=== PATIENT | female | born 1950 | race Caucasian/White ===

== ENCOUNTER 2016-04-28 14:43 | Outpatient (RCR) | payer MEDICARE, MEDICAID ==
[~2016-04-28 14:43] MED LIST: ALBU2.5V4 IH; ALBU2.5V4 NEB; ALPR0.5T7 PO; ASCO-262 PO; ASPI-983 PO; AZTH250C PO; Alprazolam PO; Aspirin PO; BUDE10.2 PO; CELE200C PO; CETI10TA17 PO; CLOP75TA PO; CLOP75TA28 PO; CLOP75TA69 PO; CYCL5TAB PO; Citalopram Hydrobromide PO; DCS100C PO; DILT120C54 PO; DLT240CCR PO; DOCU-143 PO; DOXE25CA46 PO; DOXY100T2 PO; FLUC100T PO; FLUO20CA42 PO; FLUO40CA PO; FLUO40CA12 PO; FURO40TA4 PO; GABA-488 PO; HYDR-2890 PO; HYDR-3731 PO; HYDR-3820 PO; HYDR200T46 PO; IPR14IN IH; IPRA3AMP INH; LORA-794 PO; LORA10TA7 PO; METR500T21 PO; MIRT15TA6 PO; MIRT30TA6 PO; MONT10TA24 PO; MULT1CAP27 PO; NAPR-591 PO; NAPR500T PO; NAPR500T3 PO; NF-ESOM40C PO; NYST1000 PO; OMEP10SU PO; OMEP20CA12 PO; ONDN4T PO; PEDI1TAB30 PO; PRAV10TA PO; PRD10T PO; Prednisone PO; RANI-515 PO; RANI150T11 PO; RANI150T90 PO; SERT50TA9 PO; SULF1TAB35 PO; TIOT4MIS2 PO; TR1C15 TOP; VARE1TAB17 PO; VENL75TA74 PO; VERA120T84 PO; Verapamil Hcl PO; [UNRECOGNIZED DRUG - CODE] PO
--- OUTSIDE RECORDS SUMMARY | 2016-04-28 14:46 | XMS REPORT | Continuity of Care Document ---
Author Author [facility] Organization [facility] Address Unknown Phone Unavailable Care Team Providers Care Asset Card Clerk Name Role Phone PCP Unavailable Source Comments Some departments are not documenting in the electronic medical record. If you do not see the information that you expected, contact Release of Information in the Health Information Management department at [phone] for further assistance in locating additional records.[facility] Active Allergies and Adverse Reactions No Known Allergies Current Medications Prescription Sig. Disp. Refills Start End Date Status Date varenicline (CHANTIX) 1 Take 0.5 mg by mouth Active mg tablet twice daily. warfarin (COUMADIN) 3 mg Take 3 mg by mouth daily. Active tablet HYDROcodone-acetaminophen Take 1 Tab by mouth every Active (+) (VICODIN) 10-325 mg 6 hours as needed. tablet ibuprofen (MOTRIN) 800 mg Take 800 mg by mouth Active tablet every 6 hours as needed. PV W-O MANUEL/FERROUS Take 1 Tab by mouth Active FUMARATE/FA (M-VIT PO) daily. clopiDOGrel (PLAVIX) 75 Take 75 mg by mouth Active mg tablet daily. ASCORBATE CALCIUM Take 500 mg by mouth Active (VITAMIN C PO) daily. Active Problems Problem Noted Date Tobacco abuse, in remission 07/07/2013 PAD (peripheral artery disease) ([facility]) 07/07/2013 Dry gangrene (HCC) 07/07/2013 Social History Tobacco Use Types Packs/Day Years Used Date Former Smoker Quit: 05/28/2013 Last Filed Vital Signs Vital Sign Reading Time Taken Blood Pressure 146/59 07/04/2013 2:19 PM [employer] Pulse 73 07/04/2013 2:19 PM [employer] Temperature 35.9 C (96.6 F) 07/04/2013 2:17 PM [employer] Respiratory Rate 14 07/04/2013 2:17 PM [employer] Height 1.6 m (5' 3") 07/04/2013 2:17 PM [employer] Weight 58.968 kg (130 lb) 07/04/2013 2:17 PM [employer] Body Mass Index 23.03 07/04/2013 2:17 PM [employer] Oxygen Saturation - - Plan of Care Health Maintenance Due Date Last Done Comments Physical (Comprehensive) 1956 Exam Pertussis Vaccine 1960 Tetanus Vaccine 1966 Breast Cancer Screening 1989 Colorectal Cancer 1999 Screening Shingles Vaccine 2009 Osteoporosis Screening 2014 Prevnar/Pneumovax (#1) 2014 Influenza Vaccine 03/13/2016 Results from Last 3 Months Not on file
[2016-04-28 15:26] LABS: BASOPHILS # (AUTO) 0.1 10^3/uL (0.0-0.1); BASOPHILS % (AUTO) 1 % (0-10); EOSINOPHILS # (AUTO) 0.5 10^3/uL (0.0-0.3); EOSINOPHILS % (AUTO) 3 % (0-10); LYMPHOCYTES # (AUTO) 3.1 X 10^3 (1.0-4.0); LYMPHOCYTES % (AUTO) 18 % (12-44); MEAN CORPUSCULAR HGB CONC 31 G/DL (32-36); MEAN CORPUSCULAR VOLUME 79 FL (80-99); MEAN PLATELET VOLUME 9.2 FL (7.4-10.4); MONOCYTES # (AUTO) 1.7 X 10^3 (0.0-1.0); MONOCYTES % (AUTO) 10 % (0-12); NEUTROPHILS # (AUTO) 11.6 X 10^3 (1.8-7.8); NEUTROPHILS % (AUTO) 69 % (42-75); PLATELET COUNT 714 10^3/uL (130-400); RED BLOOD COUNT 4.49 10^6/uL (4.35-5.85); RED CELL DISTRIBUTION WIDTH 28.8 % (10.0-14.5); RETICULOCYTE % 1.89 % (0.50-2.40); WHITE BLOOD COUNT 16.9 10^3/uL (4.3-11.0)
[2016-04-28 15:28] LABS: MEAN CORPUSCULAR HEMOGLOBIN 24 PG (25-34)
[2016-04-28 16:56] LABS: ALANINE AMINOTRANSFERASE 18 U/L (0-55); ALBUMIN 2.7 G/DL (3.2-4.5); ANION GAP 6 MMOL/L (5-14); ASPARTATE AMINO TRANSFERASE 33 U/L (5-34); BILIRUBIN,TOTAL 0.3 MG/DL (0.1-1.0); BLOOD UREA NITROGEN 5 MG/DL (7-18); BUN/CREATININE RATIO 7; CALCIUM 8.1 MG/DL (8.5-10.1); CARBON DIOXIDE 29 MMOL/L (21-32); CHLORIDE 107 MMOL/L (98-107); CREATININE SERUM 0.68 MG/DL (0.60-1.30); GFR ESTIMATED > 60; GLUCOSE 86 MG/DL (70-105); POTASSIUM 3.2 MMOL/L (3.6-5.0); SODIUM 142 MMOL/L (135-145); TOTAL PROTEIN 6.2 G/DL (6.4-8.2)
[2016-04-29 11:47] LABS: %SAT TOTAL IRON BINDING CAPIC 22 % (15-50); TIBC 137 ug/dL (280-380)
[2016-04-29 15:57] LABS: UIBC 107 ug/dL (55-450)
[2016-04-30 07:54] LABS: FERRITIN 759 ng/mL (15-150)
[2016-05-14] MEDS ORDERED: METR500T21 PO (10:19)
[2016-05-14] MEDS ORDERED: VANC125C11 PO (10:19)
[2016-06-11] MEDS ORDERED: ETAN50DI2 SQ (13:48)
[2016-06-11] MEDS ORDERED: L.AC1CAP6 PO (15:47)
[2016-06-16] MEDS ORDERED: LEVO750T9 PO (12:29)
[2016-06-16] MEDS ORDERED: Vancomycin Hcl PO (13:28)
[2016-07-22] MEDS ORDERED: ALPR0.5T7 PO (15:38)
[2016-07-22] MEDS ORDERED: CHOL10003 PO (15:38)
[2016-07-22] MEDS ORDERED: ETAN50DI2 INJ (15:38)
[2016-07-22] MEDS ORDERED: OXYC-464 PO (15:38)
[2016-07-25] MEDS ORDERED: LEVO750T39 PO (09:39)
[2016-07-25] MEDS ORDERED: METR500T21 PO (09:39)
[2016-08-21] MEDS ORDERED: VANC250C4 PO (08:01)
== END 2016-07-27 | disposition home or self-care (01) ==
LOC: ONC 14:43
PROVIDERS: ATTEND Internal Medicine Hematology & Oncology
DX: D50.8 Other iron deficiency anemias (principal); D63.8 Anemia in other chronic diseases classified elsewhere; I80.209 Phlebitis and thrombophlebitis of unspecified deep vessels of unspecified lower extremity; I47.1 Supraventricular tachycardia; I65.23 Occlusion and stenosis of bilateral carotid arteries; J44.9 Chronic obstructive pulmonary disease, unspecified; F41.9 Anxiety disorder, unspecified; E11.59 Type 2 diabetes mellitus with other circulatory complications; I70.213 Atherosclerosis of native arteries of extremities with intermittent claudication, bilateral legs; F17.210 Nicotine dependence, cigarettes, uncomplicated; Z79.899 Other long term (current) drug therapy
CPT/HCPCS: 36415; 80053; 82728; 83540; 85025; 85045; 99213

== ENCOUNTER 2016-07-22 10:37 | Inpatient (IN) | payer MEDICARE, MEDICAID ==
[~2016-07-22] VITALS: Ht 162.6 cm; Wt 74.5 kg
[~2016-07-22 10:37] MED LIST changes: +ETAN50DI2 SQ; +L.AC1CAP6 PO; +LEVO750T9 PO; +VANC125C11 PO; +Vancomycin Hcl PO
--- NOTE | 2016-07-22 11:28 | ED GI ---
General Chief Complaint: Abdominal/GI Problems Stated Complaint: DIARRHEA Source of Information: Patient, Family Exam Limitations: No Limitations (PALOMO SALAZAR APRN) History of Present Illness Time Seen By Provider: 11:27 Initial Comments To ER with persistent diarrhea that recurred last night. She is finished oral vancomycin 7 days ago for Clostridium difficile infection followed aggressive antibiotic therapy for sepsis on June 11 admission. She denies abdominal pain fevers or chills. Denies nausea or vomiting. Does have a cough. Timing/Duration: 1-2 Days Severity/Quality: Moderate Associated Symptoms: Denies Symptoms Nausea/Vomiting (PALOMO SALAZAR APRN) Initial Comments Also is complaining of increasing right knee pain. Denies any new injury. She is requiring oxygen now which is not always typical during the day. She does wear oxygen at night. Daughter is concerned because cough sounds wet and course. (DANA HUMPHREY MD) Allergies and Home Medications Allergies Coded Allergies: ceftriaxone (Verified Allergy, Unknown, 06/11/16) Home Medications 60 ML SOLN 7Days 2.5 ML PO Q6H YOU HAVE ENOUGH VANCO TO LAST UNTIL 06/23, IF WANTS YOU TO CONTINUE MEDICATION FOR FULL 2 WEEKS AFTER LEVAQUIN, YOU WILL NEED NEW RX AT FOLLOW UP VISIT. Prescribed by: NIESHA GALLO on 06/16/16 1328 Albuterol Sulfate 2.5 Mg/3 Ml Vial.neb 2.5 MG NEB QID PRN PRN SHORTNESS OF BREATH (Reported) Ascorbate Calcium 500 Mg Tablet 500 MG PO BID (Reported) Aspirin 81 Mg Tablet. 81 MG PO DAILY (Reported) Budesonide/Formoterol Fumarate 10.2 Gm Hfa.aer.ad 2 PUFF PO BID (Reported) Cetirizine HCl 10 Mg Tablet 10 MG PO DAILY (Reported) Doxepin HCl 25 Mg Capsule 25 MG PO HS (Reported) Folic Acid/Multivit-Min/Lutein 1 Each Tab.chew 2 TAB PO DAILY (Reported) Gabapentin 300 Mg Capsule 600 MG PO TID (Reported) TAkES 2 (300 MG) CAPSULES Hydrocodone/Acetaminophen 1 Each Tablet 1 TAB PO BID PRN PRN PAIN (Reported) L.acidoph & Paracasei,B.lactis 1 Each Capsule 1 CAP PO BID (Reported) Levofloxacin 750 Mg Tablet 10Days 750 MG PO DAILY Prescribed by: WES LEHMAN on 06/16/16 1229 Montelukast Sodium 10 Mg Tablet 10 MG PO DAILY (Reported) Omeprazole 20 Mg Capsule.dr 20 MG PO DAILY (Reported) Pravastatin Sodium 10 Mg Tablet 10 MG PO HS (Reported) Ranitidine HCl 150 Mg Tablet 150 MG PO BID (Reported) Sertraline HCl 50 Mg Tablet 50 MG PO DAILY (Reported) Tiotropium Shunk 4 Gm Mist.inhal 1 PUFF PO DAILY (Reported) Verapamil HCl 120 Mg Tablet.er 120 MG PO DAILY (Reported) Review of Systems Constitutional: see HPINo chills, No fever EENTM: No Symptoms Reported Respiratory: No Symptoms Reported Cardiovascular: No Symptoms Reported Gastrointestinal: See HPIDenies Abdominal Pain, Denies Constipated, DiarrheaDenies Nausea, Denies Vomiting Genitourinary: No Symptoms Reported Musculoskeletal: no symptoms reported Skin: no symptoms reported Psychiatric/Neurological: No Symptoms Reported Endocrine: No Symptoms Reported (PALOMO SALAZAR APRN) All Other Systems Reviewed Negative Unless Noted: Yes (DANA HUMPHREY MD) Past Vrzwtfe-Jwoioz-Hmmbrx Hx Patient Social History Type Used: Cigarettes Former Smoker/When Quit: Feb 16, 2014 2nd Hand Smoke Exposure: No Recent [facility]: Yes [facility]DX C DIFF)) (PALOMO SALAZAR APRN) Immunizations Up To Date Tetanus Booster (TDap): More than 5yrs PED Vaccines UTD: No Date of Pneumonia Vaccine: Aug 05, 2013 Date of Influenza Vaccine: Apr 12, 2016 (PALOMO SALAZAR APRN) Seasonal Allergies Seasonal Allergies: No (PALOMO SALAZAR APRN) Surgeries HX Surgeries: Yes (TOTAL HIP, STENTS IN LEGS) Surgeries: Orthopedic (PALOMO SALAZAR APRN) Respiratory Hx Respiratory Disorders: Yes (COPD, emphysema) Respiratory Disorders: COPD, Emphysema (PALOMO SALAZAR APRN) Cardiovascular Hx Cardiac Disorders: No (PALOMO SALAZAR APRN) Neurological Hx Neurological Disorders: Yes Neurological Disorders: Stroke (PALOMO SALAZAR APRN) Reproductive System Hx Reproductive Disorders: No Sexually Transmitted Disease: No HIV/AIDS: No Female Reproductive Disorders: Denies (PALOMO SALAZAR APRN) Genitourinary Hx Genitourinary Disorders: No (PALOMO SALAZAR APRN) Gastrointestinal Hx Gastrointestinal Disorders: Yes Gastrointestinal Disorders: Pancreatitis, C-Diff (PALOMO SALAZAR APRN) Musculoskeletal Hx Musculoskeletal Disorders: Yes (PARTIAL LEFT FOOT AMPUTATION. ) Musculoskeletal Disorders: Rheumatoid Arthritis (PALOMO SALAZAR APRN) Endocrine Hx Endocrine Disorders: No (PALOMO SALAZAR APRN) HEENT HX ENT Disorders: No Loss of Vision: Denies Hearing Impairment: Denies (PALOMO SAALZAR APRN) Cancer Hx Cancer: No (PALOMO SALAZAR APRN) Psychosocial Hx Psychiatric Problems: Yes Behavioral Health Disorders: Anxiety, Depression (PALOMO SALAZAR APRN) Integumentary HX Skin/Integumentary Disorder: No (PALOMO SALAZAR APRN) Blood Transfusions Hx Blood Disorders: No Adverse Reaction to a Blood Tr: No (PALOMO SALAZAR APRN) Reviewed Nursing Assessment Reviewed/Agree w Nursing PMH: Yes (DANA HUMPHREY MD) Family Medical History Significant Family History: Heart Disease Family Medial History: Cancer 09 SISTER Family history: Arthritis 09 BROTHER 09 SISTER Family history: Cardiovascular disease 09 SISTER Family history: Thyroid disorder 09 SISTER Malignant neoplasm of lung 09 SISTER (PALOMO SALAZAR APRN) Family Medial History: Cancer 09 SISTER Family history: Arthritis 09 BROTHER 09 SISTER Family history: Cardiovascular disease 09 SISTER Family history: Thyroid disorder 09 SISTER Malignant neoplasm of lung 09 SISTER (DANA HUMPHREY MD) Physical Exam Vital Signs VS - Last 72 Hours, by Label 07/22/16 12:13 Temp 97.6 Pulse 86 Resp 18 B/P 139/75 Pulse Ox 95 O2 Delivery Nasal Cannula (DANA HUMPHREY MD) Vital Signs Capillary Refill : (PALOMO SALAZAR APRN) General Appearance: WD/WN no apparent distress HEENT: PERRL/EOMI normal ENT inspection Respiratory: normal breath sounds no respiratory distress no accessory muscle use Cardiovascular: regular rate, rhythm no murmur Gastrointestinal: normal bowel sounds soft tenderness (minimal right lower quadrant tenderness) Extremities: normal range of motion non-tender Neurologic/Psychiatric: alert normal mood/affect Skin: normal color warm/dry (PALOMO SALAZAR APRN) HEENT: pharynx normal Neck: full range of motion supple Respiratory: No wheezing, other (course upper respiratory sounds) Extremities: other (right knee with effusion and tenderness to the medial and lateral aspect) Back: normal inspection no CVA tenderness no vertebral tenderness (DANA HUMPHREY MD) Progress/Results/Core Measures Results/Orders Lab Results Laboratory Tests Test 07/22/16 10:57 07/22/16 12:00 07/22/16 12:45 Range/Units Anisocytosis SLIGHT Band Neutrophils 7 % Basophils # (Auto) 0.0 0.0-0.1 10^3/uL Basophils % (Manual) 0 % Basophils (%) (Auto) 0 0-10 % Eosinophils # (Auto) 0.1 0.0-0.3 10^3/uL Eosinophils % (Manual) 1 % Eosinophils (%) (Auto) 1 0-10 % Hematocrit 40 35-52 % Hemoglobin 12.7 11.5-16.0 G/DL Lymphocytes # (Auto) 2.2 1.0-4.0 X 10^3 Lymphocytes % (Manual) 10 % Lymphocytes (%) (Auto) 11 L 12-44 % Mean Corpuscular Hemoglobin 27 25-34 PG Mean Corpuscular Hemoglobin Concent 32 32-36 G/DL Mean Corpuscular Volume 87 80-99 FL Mean Platelet Volume 10.0 7.4-10.4 FL Monocytes # (Auto) 1.4 H 0.0-1.0 X 10^3 Monocytes % (Manual) 5 % Monocytes (%) (Auto) 7 0-12 % Neutrophils # (Auto) 15.4 H 1.8-7.8 X 10^3 Neutrophils % (Manual) 77 % Neutrophils (%) (Auto) 81 H 42-75 % Platelet Count 557 H 130-400 10^3/uL Red Blood Count 4.64 4.35-5.85 10^6/uL Red Cell Distribution Width 16.7 H 10.0-14.5 % White Blood Count 19.1 H 4.3-11.0 10^3/uL Alanine Aminotransferase (ALT/SGPT) 160 H 0-55 U/L Albumin 3.1 L 3.2-4.5 G/DL Alkaline Phosphatase 199 H 40-136 U/L Anion Gap 8 5-14 MMOL/L Aspartate Amino Transf (AST/SGOT) 185 H 5-34 U/L BUN/Creatinine Ratio 23 Blood Urea Nitrogen 17 7-18 MG/DL Calcium Level 9.2 8.5-10.1 MG/DL Carbon Dioxide Level 26 21-32 MMOL/L Chloride Level 104 98-107 MMOL/L Creatinine 0.75 0.60-1.30 MG/DL Estimat Glomerular Filtration Rate > 60 Glucose Level 106 H 70-105 MG/DL Lipase < 4 L 8-78 U/L Potassium Level 4.2 3.6-5.0 MMOL/L Sodium Level 138 135-145 MMOL/L Total Bilirubin 0.8 0.1-1.0 MG/DL Total Protein 8.0 6.4-8.2 G/DL Urine Bacteria TRACE /HPF Urine Bilirubin NEGATIVE NEGATIVE Urine Casts NONE /LPF Urine Clarity CLEAR Urine Color YELLOW Urine Crystals NONE /LPF Urine Culture Indicated NO Urine Glucose (UA) NEGATIVE NEGATIVE Urine Ketones 1+ H NEGATIVE Urine Leukocyte Esterase 1+ H NEGATIVE Urine Mucus SMALL H /LPF Urine Nitrite NEGATIVE NEGATIVE Urine Protein 1+ H NEGATIVE Urine RBC NONE /HPF Urine RBC (Auto) NEGATIVE NEGATIVE Urine Specific [place] 1.020 1.016-1.022 Urine Squamous Epithelial Cells 0-2 /HPF Urine Urobilinogen 1 NORMAL MG/DL Urine WBC RARE /HPF Urine pH 5 5-9 (DANA HUMPHREY MD) My Orders Orders-DANA HUMPHREY MD Cbc With Automated Diff (07/22/16 11:24) Comprehensive Metabolic Panel (07/22/16 11:24) Ua Culture If Indicated (07/22/16 11:24) Manual Differential (07/22/16 10:57) Knee, Right, 3 Views (07/22/16 11:27) Lipase (07/22/16 12:40) Lactic Acid Analyzer (07/22/16 13:24) Blood Culture (07/22/16 13:24) (DANA HUMPHREY MD) Vital Signs/I&O Vital Sign - Last 12Hours 07/22/16 12:13 Temp 97.6 Pulse 86 Resp 18 B/P 139/75 Pulse Ox 95 O2 Delivery Nasal Cannula (DANA HUMPHREY MD) Progress Note : Progress Note Seen and evaluated. IV, labs, UA, LR 1 L bolus, chest x-ray and right knee x- ray ordered. Monitor patient. Patient is required 4 L of O2 to keep O2 sats greater than 92 percent. 1319: Patient's findings are reviewed. This was reviewed with Dr. Brown who is very familiar with the patient's case. Patient does have diarrhea today and respiratory changes requiring oxygen. Findings on x-ray may or may not correlate to pneumonia. Patient does have elevated white count and this may be related to diarrhea. We will treat possible abdominal infection and monitor lungs. Blood cultures and lactic acid will be drawn. Patient did receive 1 L normal saline we will continue IV fluid inpatient. Patient will be admitted due to diarrhea, weakness, hypoxia and dehydration. Levaquin 750 mg IV initiated. We will do inpatient Levaquin and Flagyl. RT mat protocol and patient will also be initiated. I did discuss with the daughter at length about patient's need for long-term care. While the daughter does not want to pursue [place], she is very interested and would pursue rehabilitation within the inpatient setting and in the [place] setting if indicated. Patient also seems to agree. Patient still having some difficulty with speech which appears to be calm and during the times when she needs admissions. (DANA HUMPHREY MD) Diagnostic Imaging Diagonstic Imaging: Xray Plain Films/CT/US/NM/MRI: chest Comments VIA [facility]. [place], [place] NAME: ALIYAH ROLLINS [facility] REC#: [id number] PT STATUS: REG ER : 1950 PHYSICIAN: PALOMO SALAZAR APRN ADMIT DATE: 07/22/16/ER Draft Date of Exam:07/22/16 CHEST PA/LAT (2 VIEW) PA and lateral views of the chest. INDICATION: Cough and shortness of breath. FINDINGS: There is background interstitial thickening that appear increased in the upper lobes particularly on the left side with small left suprahilar infiltrate. The heart size is the slightly enlarged. No effusion or pneumothorax. The mediastinum and beny appear unremarkable. IMPRESSION: Predominantly interstitial infiltrates most prominent in the left suprahilar region, favored to be related to atypical infection. Dictated on workstation # [id number] Dict: 07/22/16 1240 Trans: 07/22/16 1252 [facility] [id number] Interpreted by: ARIANNE CHEW MD Electronically signed by: Diagonstic Imaging: Xray Plain Films/CT/US/NM/MRI: knee Comments NAME: ALIYAH ROLLINS [facility] REC#: [id number] PT STATUS: REG ER : 1950 PHYSICIAN: DANA HUMPHREY MD ADMIT DATE: 07/22/16/ER Signed Date of Exam: 07/22/16 KNEE, RIGHT, 3 VIEWS EXAMINATION: Three views of the right knee. INDICATION: Right knee pain. FINDINGS: There is joint space narrowing of a moderate degree in the medial and lateral compartments. There is also some joint space narrowing of the patellofemoral compartment suggested. There is a small suprapatellar effusion. There are tricompartment osteophytes seen. Subchondral lucency along the medial femoral condyle is noted, probably degenerative related. No fracture or dislocation is seen. No radiopaque foreign body. IMPRESSION: Moderate tricompartment osteoarthritis. Dictated by: Dictated on workstation # [id number] Dict: 07/22/16 1239 Trans: 07/22/16 1321 [id number] Interpreted by: ARIANNE CHEW MD Electronically signed by:ARIANNE CHEW MD 07/22/16 1324 (DANA HUMPHREY MD) Departure Communication Time/Spoke to Admitting Phy: 13:19 (DANA HUMPHREY MD) Impression Impression: Primary Impression: Diarrhea Qualified Code: R19.7 - Diarrhea, unspecified Additional Impressions: Dehydration COPD exacerbation Debility Disposition: 09 ADMITTED INPATIENT Condition: Stable Decision to Admit Reason: Admit from ER (General) Decision to Admit/Date: Jul 22, 2016 Time/Decision to Admit Time: 13:19 (DANA HUMPHREY MD) Departure-Patient Inst. Referrals: [facility] (PCP/Family) Primary Care Physician PALOMO SALAZAR APRN Jul 22, 2016 11:28 DANA HUMPHREY MD Jul 22, 2016 11:46
[2016-07-22 11:30] LABS: BASOPHILS % (AUTO) 0 % (0-10); EOSINOPHILS # (AUTO) 0.1 10^3/uL (0.0-0.3); EOSINOPHILS % (AUTO) 1 % (0-10); LYMPHOCYTES # (AUTO) 2.2 X 10^3 (1.0-4.0); LYMPHOCYTES % (AUTO) 11 % (12-44); MEAN CORPUSCULAR HEMOGLOBIN 27 PG (25-34); MEAN CORPUSCULAR HGB CONC 32 G/DL (32-36); MEAN CORPUSCULAR VOLUME 87 FL (80-99); MONOCYTES # (AUTO) 1.4 X 10^3 (0.0-1.0); MONOCYTES % (AUTO) 7 % (0-12); NEUTROPHILS # (AUTO) 15.4 X 10^3 (1.8-7.8); NEUTROPHILS % (AUTO) 81 % (42-75); PLATELET COUNT 557 10^3/uL (130-400); RED BLOOD COUNT 4.64 10^6/uL (4.35-5.85); RED CELL DISTRIBUTION WIDTH 16.7 % (10.0-14.5); WHITE BLOOD COUNT 19.1 10^3/uL (4.3-11.0)
[2016-07-22] MEDS ORDERED: LACTATED RINGERS 1,000 ML IV SCH (11:30)
[2016-07-22 11:54] LABS: ANISOCYTOSIS SLIGHT; BAND NEUTROPHILS 7 %; BASOPHILS % (MANUAL) 0 %; EOSINOPHILS % (MANUAL) 1 %; LYMPHOCYTES % (MANUAL) 10 %; NEUTROPHILS % (MANUAL) 77 %
[2016-07-22 12:23] LABS: ALANINE AMINOTRANSFERASE 160 U/L (0-55); ALBUMIN 3.1 G/DL (3.2-4.5); ANION GAP 8 MMOL/L (5-14); ASPARTATE AMINO TRANSFERASE 185 U/L (5-34); BILIRUBIN,TOTAL 0.8 MG/DL (0.1-1.0); BLOOD UREA NITROGEN 17 MG/DL (7-18); BUN/CREATININE RATIO 23; CALCIUM 9.2 MG/DL (8.5-10.1); CARBON DIOXIDE 26 MMOL/L (21-32); CHLORIDE 104 MMOL/L (98-107); CREATININE SERUM 0.75 MG/DL (0.60-1.30); GFR ESTIMATED > 60; GLUCOSE 106 MG/DL (70-105); POTASSIUM 4.2 MMOL/L (3.6-5.0); SODIUM 138 MMOL/L (135-145)
--- NOTE | 2016-07-22 12:42 | Diagnostic Imaging Report ---
EXAMINATION: Three views of the right knee. INDICATION: Right knee pain. FINDINGS: There is joint space narrowing of a moderate degree in the medial and lateral compartments. There is also some joint space narrowing of the patellofemoral compartment suggested. There is a small suprapatellar effusion. There are tricompartment osteophytes seen. Subchondral lucency along the medial femoral condyle is noted, probably degenerative related. No fracture or dislocation is seen. No radiopaque foreign body. IMPRESSION: Moderate tricompartment osteoarthritis. Dictated by: Dictated on workstation # [id number]
--- NOTE | 2016-07-22 12:53 | Diagnostic Imaging Report ---
PA and lateral views of the chest. INDICATION: Cough and shortness of breath. FINDINGS: There is background interstitial thickening that appear increased in the upper lobes particularly on the left side with small left suprahilar infiltrate. The heart size is the slightly enlarged. No effusion or pneumothorax. The mediastinum and beny appear unremarkable. IMPRESSION: Predominantly interstitial infiltrates most prominent in the left suprahilar region, favored to be related to atypical infection. Dictated by: Dictated on workstation # [id number]
[2016-07-22 12:57] LABS: BILIRUBIN,URINE NEGATIVE (NEGATIVE); KETONES,URINE 1+ (NEGATIVE); LEUKOCYTE ESTERASE ,URINE 1+ (NEGATIVE); NITRITE,URINE NEGATIVE (NEGATIVE); PH,URINE 5 (5-9); PROTEIN,URINE 1+ (NEGATIVE); UROBILINOGEN,URINE 1 MG/DL (NORMAL)
[2016-07-22 13:06] LABS: SQUAMOUS EPITHELIAL CELL,UR 0-2 /HPF; WBC,URINE RARE /HPF
[2016-07-22] MEDS ORDERED: LEVOFLOXACIN 750 MG/150 ML IV 150 ML IV STA (13:51)
[2016-07-22] MEDS ORDERED: NS IV 1000 ML 1,000 ML IV SCH (15:15)
[2016-07-22] MEDS ORDERED: ONDANSETRON 4 MG/2 ML (SDV) Z0FRAN IV PRN (15:15)
[2016-07-22] MEDS ORDERED: CATHETER FLUSH 10 ML SYR IV PRN (15:15)
[2016-07-22] MEDS: metroNIDAZOLE 500MG/100ML IVPB 100 ML IV SCH ×2 (15:25→22:55)
[2016-07-22] MEDS ORDERED: ETAN50DI2 INJ (15:38)
[2016-07-22] MEDS ORDERED: OXYC-464 PO (15:38)
[2016-07-22] MEDS ORDERED: CHOL10003 PO (15:38)
[2016-07-22] MEDS ORDERED: ALPR0.5T7 PO (15:38)
[2016-07-22 15:39] VITALS: BP 106/61
[2016-07-22 16:35] VITALS: BP 97/57
[2016-07-22] MEDS: NS IV 1000 ML 1,000 ML IV SCH ×2 (17:00→22:54)
[2016-07-22 19:55] VITALS: BP 98/56
[2016-07-22] MEDS: ACETAMINOPHEN 325 MG TABLET/CAPLET (TYLENOL) PO PRN (20:02)
[2016-07-22] MEDS ORDERED: RT-ALBUTEROL SULF 2.5 MG/3 ML PRE-MIX VIAL INH PRN ×2 (20:15→22:00)
[2016-07-22] MEDS: RT-ALBUTEROL SULF 2.5 MG/3 ML PRE-MIX VIAL INH SCH (20:52)
[2016-07-23] VITALS: BP 121/43
[2016-07-23 04:00] VITALS: BP 130/77
[2016-07-23 04:50] LABS: BASOPHILS % (AUTO) 0 % (0-10); EOSINOPHILS # (AUTO) 0.2 10^3/uL (0.0-0.3); EOSINOPHILS % (AUTO) 1 % (0-10); LYMPHOCYTES # (AUTO) 2.4 X 10^3 (1.0-4.0); LYMPHOCYTES % (AUTO) 13 % (12-44); MEAN CORPUSCULAR HEMOGLOBIN 27 PG (25-34); MEAN CORPUSCULAR HGB CONC 32 G/DL (32-36); MEAN CORPUSCULAR VOLUME 86 FL (80-99); MEAN PLATELET VOLUME 9.4 FL (7.4-10.4); MONOCYTES # (AUTO) 1.6 X 10^3 (0.0-1.0); MONOCYTES % (AUTO) 9 % (0-12); NEUTROPHILS # (AUTO) 13.9 X 10^3 (1.8-7.8); NEUTROPHILS % (AUTO) 76 % (42-75); PLATELET COUNT 509 10^3/uL (130-400); RED CELL DISTRIBUTION WIDTH 16.5 % (10.0-14.5); WHITE BLOOD COUNT 18.2 10^3/uL (4.3-11.0)
[2016-07-23 05:12] LABS: ANION GAP 11 MMOL/L (5-14); BLOOD UREA NITROGEN 11 MG/DL (7-18); CARBON DIOXIDE 22 MMOL/L (21-32); CHLORIDE 105 MMOL/L (98-107); CREATININE SERUM 0.64 MG/DL (0.60-1.30); POTASSIUM 3.8 MMOL/L (3.6-5.0); SODIUM 138 MMOL/L (135-145)
[2016-07-23 05:13] LABS: ALANINE AMINOTRANSFERASE 106 U/L (0-55); ALBUMIN 2.9 G/DL (3.2-4.5); ASPARTATE AMINO TRANSFERASE 78 U/L (5-34); BILIRUBIN,TOTAL 0.7 MG/DL (0.1-1.0); BUN/CREATININE RATIO 17; GFR ESTIMATED > 60; GLUCOSE 97 MG/DL (70-105); TOTAL PROTEIN 7.9 G/DL (6.4-8.2)
[2016-07-23] MEDS: metroNIDAZOLE 500MG/100ML IVPB 100 ML IV SCH ×3 (05:35→22:00)
[2016-07-23] MEDS: NS IV 1000 ML 1,000 ML IV SCH (05:35)
[2016-07-23] MEDS: ACETAMINOPHEN 325 MG TABLET/CAPLET (TYLENOL) PO PRN (07:03)
[2016-07-23 08:00] VITALS: BP 139/82
[2016-07-23] MEDS: LEVOFLOXACIN 750 MG/D5W 150 ML PRE-MIX IV SCH (08:48)
--- NOTE | 2016-07-23 09:00 | Diagnostic Imaging Report ---
CLINICAL INDICATION: Patient with history of COPD. EXAM: Chest x-ray PA and lateral views. COMPARISON: Chest x-ray dated 07/22/2016. FINDINGS: There is interval slight improved aeration of both lungs with continued reticular opacities seen in the lingular region, right upper lobe, right lung base regions which may represent residual infiltrates and/or atelectasis or scarring. Stable blunting of left costophrenic angle which may be from scarring. Pulmonary vasculature and cardiac silhouettes within normal limits. Bones show no significant interval abnormality. IMPRESSION: Slight improved aeration of both lungs with continued infiltrates versus atelectasis or scarring involving the right upper lobe, lingula, and right lung base. Dictated by: Dictated on workstation # [id number]
[2016-07-23] MEDS: RT-ALBUTEROL SULF 2.5 MG/3 ML PRE-MIX VIAL INH SCH ×3 (10:40→19:50)
--- NOTE | 2016-07-23 11:35 | History & Physicial (CHS) ---
HPI History of Present Illness: Lona is a 66yo woman well known to the [facility] service who presented to ER with two complaints. One was of a cough and the other that she was having recurrent diarrhea. When I interviewed Lona, she was again having word-finding difficulty that she has had in the past. She did complete her last dose of vanc (after another recurrence of her C diff last month) about a week ago. She has been living at home and has had a few falls. Source: patient Exam Limitations: clinical condition Date seen by provider: Jul 23, 2016 Attending Physician James Mendez MD PCP [facility] Date of Admission Jul 22, 2016 at 2:39 pm Home Medications Home Medications Reviewed patient Home Medication Reconciliation Form Allergies Coded Allergies: ceftriaxone (Verified Allergy, Unknown, 06/11/16) WDD-Jmrsot-Qqhtwa Hx Patient Social History Alcohol Use: Denies Use Recreational Drug Use: No Smoking Status: Former Smoker Former smoker/When Quit: Feb 16, 2014 Type Used: Cigarettes 2nd Hand Smoke Exposure: No Recent Foreign Travel: No Contact w/other who traveled: No Recent Hopitalizations: Yes Recent Infectious Disease Expo: No Physical Abuse Screen: No Sexual Abuse: No Immunizations Up To Date Tetanus Booster (TDap): More than 5yrs Date of Pneumonia Vaccine: Aug 05, 2013 Date of Influenza Vaccine: Apr 12, 2016 Past Medical History Past Medical History 1. ASOD - history of bilateral stents BLE Dr. Sevilla, redo stenting Dr. Engel Lt. SFA 02/23 2. Pancreatitis 2003 3. Hyperlipidemia 4. Chronic obstructive pulmonary disease 5. RA previously evaluated by Dr. Javier 6. History of skin cancer of the face 7. Dry Gangrene Lt. Foot s/p amputation 8. "Spider Bite" with wound Left shoulder with tissue 9 DJD 10. Insomnia 11. Stroke with dysarthria and right sided weakness Past Surgical History 1. Hip Replacement 2003 2. BLE Stents RT. 2003, Lt. 2012 x3 by Di (on coumadin for short period post stent) stopped by Di 3. Otolaryngologic surgery for CA bridge of nose and inner canthus of rt. eye 2009 4. Athrectomy with Lt. SFA stent Toro 02/23 5. Rt. SFA, popliteal and anterior tibial arthrectomy Toro 03/26 6. Left forefoot amputation-Reveal Family Medical History Significant Family History: Heart Disease Family History: Cancer 09 SISTER Family history: Arthritis 09 BROTHER 09 SISTER Family history: Cardiovascular disease 09 SISTER Family history: Thyroid disorder 09 SISTER Malignant neoplasm of lung 09 SISTER Review of Systems ([facility]) Constitutional: no symptoms reported Other unable to obtain due to mental status Physical Exam-([facility]) Physical Exam Vital Signs Capillary Refill : Less Than 3 Seconds General Appearance: WD/WN no apparent distress HEENT: PERRL/EOMI normal ENT inspection pharynx normal Neck: non-tender full range of motion supple normal inspection Respiratory: lungs clear normal breath sounds no respiratory distress no accessory muscle use Cardiovascular: regular rate, rhythm no edema no gallop no JVD no murmur Gastrointestinal: normal bowel sounds non tender soft no organomegaly Extremities: normal range of motion non-tender normal inspection no pedal edema no calf tenderness normal capillary refill 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 concerning that this has recurred yet again. we are apparently not eradicating as we would like to see. if we are going to continue to press ahead, she will need to see ID. will discuss with family once they arrive. ELEVATED TA'S ADM - not sure why her TA's are elevated. has happened in past and they go down with tx of the cdiff. will monitor again and go from there. likely needs an outpatient work up with US/bx, etc. ATYPICAL PNEUMONIA ADM - questionable pneumonia. currently on abx. would like to dc those ADRIANNA as they will potentiate this infection. DEMENTIA ADM - believe the patinent to have dementia based on her repeated confusion when she comes to hospital. will discuss with family. probably needs neuropsych eval. POOR FUNCTIONAL STATUS FREQUENT FALLS ADM - have recommended past 2 hospitalizations that patient go to SNF but she and family have refused repeatedly. will again approach family about her not being safe at home. DVT - SCDs. Diagnosis/Problems: Clinical Quality Measures DVT/VTE Risk/Contraindication: Risk Factor Score Per Nursin RFS Level Per Nursing on Admit: 4+=Very High Copy Copies To 1: JAMES GRAVES APRN, MD Jul 23, 2016 11:35 B/P 139/82 Pulse Ox 97 98 O2 Delivery Nasal Cannula Nasal Cannula O2 Flow Rate 3.00 3.00 Capillary Refill : Less Than 3 Seconds Clinical Quality Measures DVT/VTE Risk/Contraindication: Risk Factor Score Per Nursin RFS Level Per Nursing on Admit: 4+=Very High JAMES MENDEZ MD Jul 23, 2016 11:35 am
[2016-07-23 12:00] VITALS: BP 134/70
--- NOTE | 2016-07-23 14:12 | Physician Query-General Query ---
Physician Query-General Query to Physician: For clarification: Patient has a history of right sided hemiparesis from previous stroke. Is this still present or has it resolved completely? PHYSICIAN RESPONSE: Based on the clinical findings in the record, please respond to the query above on this document as an addendum. Possible, probable, or questionable diagnosis can be coded for INPATIENTS ONLY. Physician Response: Physician Response STILL PRESENT, NOT SEVERE. If you have questions please contact: Realty Specialist:Norah Sanchez CCS,CCDS Ext:[phone] Thank you for your time and cooperation. Clinical Optometric Coordinator/Realty Specialist This is a permanent part of the medical record NORAH SANCHEZ Jul 23, 2016 14:12 JAMES MENDEZ MD Aug 05, 2016 20:56
[2016-07-23 16:20] VITALS: BP 127/72
[2016-07-23 20:00] VITALS: BP 144/73
[2016-07-24] VITALS: BP 131/69
[2016-07-24 04:00] VITALS: BP 127/74
[2016-07-24] MEDS: metroNIDAZOLE 500MG/100ML IVPB 100 ML IV SCH (05:39)
[2016-07-24] MEDS: RT-ALBUTEROL SULF 2.5 MG/3 ML PRE-MIX VIAL INH SCH ×3 (07:33→21:32)
[2016-07-24 08:00] VITALS: BP 145/70
[2016-07-24] MEDS: LEVOFLOXACIN 750 MG/D5W 150 ML PRE-MIX IV SCH (09:27)
[2016-07-24 12:00] VITALS: BP 131/79
[2016-07-24] MEDS: metroNIDAZOLE 500 MG (FLAGYL) TAB PO SCH ×2 (13:55→20:54)
[2016-07-24 16:50] VITALS: BP 139/73
[2016-07-24 20:00] VITALS: BP 158/77
[2016-07-25] VITALS: BP 143/65
[2016-07-25 04:00] VITALS: BP 150/80
[2016-07-25 06:22] LABS: BASOPHILS # (AUTO) 0.1 10^3/uL (0.0-0.1); BASOPHILS % (AUTO) 0 % (0-10); EOSINOPHILS # (AUTO) 0.1 10^3/uL (0.0-0.3); EOSINOPHILS % (AUTO) 0 % (0-10); LYMPHOCYTES # (AUTO) 2.8 X 10^3 (1.0-4.0); LYMPHOCYTES % (AUTO) 20 % (12-44); MEAN CORPUSCULAR HEMOGLOBIN 27 PG (25-34); MEAN CORPUSCULAR HGB CONC 32 G/DL (32-36); MEAN CORPUSCULAR VOLUME 84 FL (80-99); MEAN PLATELET VOLUME 9.6 FL (7.4-10.4); MONOCYTES # (AUTO) 1.5 X 10^3 (0.0-1.0); MONOCYTES % (AUTO) 11 % (0-12); NEUTROPHILS # (AUTO) 9.5 X 10^3 (1.8-7.8); NEUTROPHILS % (AUTO) 68 % (42-75); PLATELET COUNT 532 10^3/uL (130-400); RED BLOOD COUNT 4.11 10^6/uL (4.35-5.85); RED CELL DISTRIBUTION WIDTH 16.1 % (10.0-14.5); WHITE BLOOD COUNT 13.9 10^3/uL (4.3-11.0)
[2016-07-25 06:45] LABS: ALANINE AMINOTRANSFERASE 51 U/L (0-55); ALBUMIN 2.9 G/DL (3.2-4.5); ANION GAP 13 MMOL/L (5-14); ASPARTATE AMINO TRANSFERASE 30 U/L (5-34); BILIRUBIN,TOTAL 0.4 MG/DL (0.1-1.0); BLOOD UREA NITROGEN 9 MG/DL (7-18); BUN/CREATININE RATIO 15; CARBON DIOXIDE 21 MMOL/L (21-32); CHLORIDE 106 MMOL/L (98-107); GFR ESTIMATED > 60; GLUCOSE 80 MG/DL (70-105); POTASSIUM 3.1 MMOL/L (3.6-5.0); SODIUM 140 MMOL/L (135-145); TOTAL PROTEIN 7.3 G/DL (6.4-8.2)
[2016-07-25 07:08] LABS: ANISOCYTOSIS SLIGHT; BAND NEUTROPHILS 0 %; BASOPHILS % (MANUAL) 0 %; EOSINOPHILS % (MANUAL) 0 %; LYMPHOCYTES % (MANUAL) 17 %; NEUTROPHILS % (MANUAL) 76 %
[2016-07-25] MEDS: RT-ALBUTEROL SULF 2.5 MG/3 ML PRE-MIX VIAL INH SCH (07:36)
[2016-07-25 08:00] VITALS: BP 144/82
[2016-07-25] MEDS: metroNIDAZOLE 500 MG (FLAGYL) TAB PO SCH (08:52)
[2016-07-25] MEDS ORDERED: LEVO750T39 PO (09:39)
[2016-07-25] MEDS ORDERED: METR500T21 PO (09:39)
--- NOTE | 2016-07-25 09:42 | Discharge Inst-Skilled Nursing ---
Discharge Inst-Skilled NF Patient Instructions Patient Problems: RECURRENT C DIFF PNEUMONIA CHRONIC DEBILITY Goal: IMPROVED ABILITY TO COMPLETE ADL'S Patient Instructions: PLEASE FINISH ALL ANTIBIOTICS PRESCRIBED. Consult/Follow Up/Orders Follow up appt.: DAPHNE WILL SEE YOU NEXT WEEK ON [facility]P ROUNDS. SHE WILL MAKE REFERRALS TO THE SPECIALISTS AT THAT TIME. Skilled NF Admit to: [facility] Certifications SNF I certify that SNF services are required to be given on an inpatient basis because of the above named patient's need for nursing home care on a continuing basis for the conditions(s) for which he/she was receiving inpatient hospital services prior to his/her transfer to the SNF. [facility]-Way Facility Order: Nursing Services, Marketing Planning Manager-Evaluate & Treat, Physical Therapy-Evaluate & Treat Discharge Diet: No Restrictions Daily Activity as Tolerated: Yes Discharge Medications New, Converted or Re-Newed RX: Transmitted to Pharmacy New Medications: Levofloxacin (Levofloxacin) 750 Mg Tablet 750 MG PO DAILY@1100 #5 Ref 0 TAB Metronidazole (Metronidazole) 500 Mg Tablet 500 MG PO TID #30 Ref 0 TAB Continued Medications: Albuterol Sulfate (Albuterol Sulfate) 2.5 Mg/3 Ml Vial.neb 2.5 MG NEB Q6H PRN SHORTNESS OF BREATH EA Alprazolam (Alprazolam) 0.5 Mg Tablet 0.5 MG PO HS TAB Ascorbate Calcium (Vitamin C) 500 Mg Tablet 500 MG PO BID TAB Aspirin (Aspirin EC) 81 Mg Tablet.dr 81 MG PO HS Budesonide/Formoterol Fumarate (Symbicort 160-4.5 Mcg Inhaler) 10.2 Gm Hfa.aer.ad 2 PUFF PO BID Cetirizine HCl (Cetirizine HCl) 10 Mg Tablet 10 MG PO DAILY Cholecalciferol (Vitamin D3) (Vitamin D3) 1,000 Unit Tablet 1000 UNIT PO DAILY TAB Doxepin HCl (Doxepin HCl) 25 Mg Capsule 25 MG PO HS CAP Etanercept (Enbrel) 50 Mg/1 Ml Syringe 50 MG INJ Tu EA Folic Acid/Multivit-Min/Lutein (Adult Multivitamin Gummies) 1 Each Tab.chew 2 TAB PO DAILY TAB Gabapentin (Gabapentin) 300 Mg Capsule 600 MG PO TID TAkES 2 (300 MG) CAPSULES CAP L.acidoph & Paracasei,B.lactis (Probiotic) 1 Each Capsule 1 CAP PO BID CAP Montelukast Sodium (Montelukast Sodium) 10 Mg Tablet 10 MG PO DAILY Omeprazole (Omeprazole) 20 Mg Capsule.dr 20 MG PO DAILY CAP Oxycodone HCl/Acetaminophen (Oxycodon-Acetaminophen 7.5-325) 1 Each Tablet 1 TAB PO TID PRN ANXIETY TAB Pravastatin Sodium (Pravastatin Sodium) 10 Mg Tablet 10 MG PO HS Ranitidine HCl (Ranitidine HCl) 150 Mg Tablet 150 MG PO BID Sertraline HCl (Sertraline HCl) 50 Mg Tablet 50 MG PO DAILY Tiotropium [place] (Spiriva Respimat) 4 Gm Mist.inhal 1 PUFF PO DAILY Verapamil HCl (Verapamil ER) 120 Mg Tablet.er 120 MG PO DAILY TAB James Brown Jul 25, 2016 09:40 Copy Copies To 1: JAMES GRAVES APRN, MD Jul 25, 2016 9:41 am
[2016-07-25] MEDS ORDERED: LEVOFLOXACIN 750 MG TAB (LEVAQUIN) PO SCH (11:00)
[2016-07-25 11:06] VITALS: BP 144/82
--- NOTE | 2016-08-05 21:02 | Progress Note (SOAP) ---
Subjective Subjective/Events-last exam SPOKE WITH patient and her son, daughter today. patient is feeling better, more lucid. is also moving around her room and eating more. Date seen by provider: Jul 24, 2016 Review of Systems Pulmonary: No Dyspnea Cardiovascular: No: Chest Pain Objective Exam Last Set of Vital Signs Capillary Refill : Less Than 3 Seconds General: Alert, Oriented X3, Cooperative, No Acute Distress Lungs: Clear to Auscultation, Normal Air Movement Heart: Regular Rate, Normal S1, Normal S2, No Murmurs, Gallops, Rubs Abdomen: Normal Bowel Sounds, Soft, No Tenderness, No Hepatosplenomegaly, No Masses Extremities: No Clubbing, No Cyanosis, No Edema Psych/Mental Status: Mood NL Results/Procedures Lab Microbiology 07/22/16 Blood Culture - Final, Complete No growth 07/23/16 C. difficile GDH Antigen & Toxins - Final, Complete Assessment/Plan Assessment/Plan Admission Dx SEE BELOW Plan RECURRENT C DIFF INFECTION ADM - RESTART flagyl today. concerning that this has recurred yet again. we are apparently not eradicating as we would like to see. if we are going to continue to press ahead, she will need to see ID. will discuss with family once they arrive. 07/24 - improved as far as sx. will obtain cbc tomorrow. had a long discussion with family regarding prognosis. it is reasonable for her to go home on hospice as this recurrent infection is continuing to cause poor nutrition and further debilitation. however family is not at all ready for hospice. they did again voice that they wanted to take her home, but I do not believe that she will tolerate this very long - 4 hospitalizations in 5 months indicates that she is not receiving whatever it is she needs at home. Discussed with family that if they wanted to pursue GI/ID treatment and go as far as a stool transplant Lona will need to be in much better shape than she is now. They agreed to have her go to a NH and will evaluate which one today with plans for her to be discharged tomorrow. ELEVATED TA'S ADM - not sure why her TA's are elevated. has happened in past and they go down with tx of the cdiff. will monitor again and go from there. likely needs an outpatient work up with US/bx, etc. 07/24 - improved. ATYPICAL PNEUMONIA ADM - questionable pneumonia. currently on abx. would like to dc those ADRIANNA as they will potentiate this infection. 07/24 - not requiring O2 as much, continue abx for now. will get another cxr in am. DEMENTIA ADM - believe the patinent to have dementia based on her repeated confusion when she comes to hospital. will discuss with family. probably needs neuropsych eval. 07/24 - family agrees she has "good days and bad days." wants neurology referral as an outpatient. POOR FUNCTIONAL STATUS FREQUENT FALLS ADM - have recommended past 2 hospitalizations that patient go to SNF but she and family have refused repeatedly. will again approach family about her not being safe at home. 07/24 - plan for SNF DC tomorrow. DVT - SCDs. Diagnosis/Problems: Clinical Quality Measures DVT/VTE Risk/Contraindication: Risk Factor Score Per Nursin RFS Level Per Nursing on Admit: 4+=Very High JAMES MENDEZ MD Aug 05, 2016 21:01
--- NOTE | 2016-08-05 21:06 | Discharge Summary ---
Diagnosis/Chief Complaint Date of Admission Jul 22, 2016 at 14:39 Date of Discharge Jul 25, 2016 at 11:00 Admission Diagnosis Admission Diagnosis SEE BELOW Discharge Diagnosis RECURRENT C DIFF INFECTION ADM - RESTART flagyl today. concerning that this has recurred yet again. we are apparently not eradicating as we would like to see. if we are going to continue to press ahead, she will need to see ID. will discuss with family once they arrive. 07/24 - improved as far as sx. will obtain cbc tomorrow. had a long discussion with family regarding prognosis. it is reasonable for her to go home on hospice as this recurrent infection is continuing to cause poor nutrition and further debilitation. however family is not at all ready for hospice. they did again voice that they wanted to take her home, but I do not believe that she will tolerate this very long - 4 hospitalizations in 5 months indicates that she is not receiving whatever it is she needs at home. Discussed with family that if they wanted to pursue GI/ID treatment and go as far as a stool transplant Lona will need to be in much better shape than she is now. They agreed to have her go to a NH and will evaluate which one today with plans for her to be discharged tomorrow. DC - will dc on flagyl, plan for Didi to follow up in the retirement and decide which referral to send to. I am not sure whether GI or ID in Summer will take patient's insurance or will be able to treat her current issue. ELEVATED TA'S ADM - not sure why her TA's are elevated. has happened in past and they go down with tx of the cdiff. will monitor again and go from there. likely needs an outpatient work up with US/bx, etc. 07/24 - improved. DC - resolved. will defer to outpatient issue. ATYPICAL PNEUMONIA ADM - questionable pneumonia. currently on abx. would like to dc those ADRIANNA as they will potentiate this infection. 07/24 - not requiring O2 as much, continue abx for now. will get another cxr in am. DC - will DC abx. CXR today shows that it was more atelectasis and has improved. really want to DC abx due to the C diff issue. DEMENTIA ADM - believe the patinent to have dementia based on her repeated confusion when she comes to hospital. will discuss with family. probably needs neuropsych eval. 07/24 - family agrees she has "good days and bad days." wants neurology referral as an outpatient. DC - agree that a neurology eval is warranted. will hold on starting new meds until we get her settled into a new environment. POOR FUNCTIONAL STATUS FREQUENT FALLS ADM - have recommended past 2 hospitalizations that patient go to SNF but she and family have refused repeatedly. will again approach family about her not being safe at home. 07/24 - plan for SNF DC tomorrow. DVT - SCDs. Chief Complaint/HPI Chief Complaint/HPI Lona is a 66yo woman well known to the [facility] service who presented to ER with two complaints. One was of a cough and the other that she was having recurrent diarrhea. When I interviewed Lona, she was again having word-finding difficulty that she has had in the past. She did complete her last dose of vanc (after another recurrence of her C diff last month) about a week ago. She has been living at home and has had a few falls. Discharge Summary-Simple/Stand Consultations Discharge Physical Examination Allergies: Coded Allergies: ceftriaxone (Verified Allergy, Unknown, 06/11/16) General Appearance: Alert, Cooperative, No Acute Distress Respiratory: Clear to Auscultation, Normal Air Movement Cardiovascular: Regular Rate, Normal S1, Normal S2, No Murmurs, Gallops, Rubs Abdominal: Normal Bowel Sounds, Soft, No Tenderness, No Hepatosplenomegaly, No Masses Extremities: No Clubbing, No Cyanosis, No Edema Hospital Course See final discharge diagnosis. Discharge Instructions to patient/family Please see electonic discharge instructions given to patient. Discharge Medications Reviewed and agree with Discharge Medication list on patient's Discharge Instruction sheet Clinical Quality Measures DVT/VTE Risk/Contraindication: Risk Factor Score Per Nursin RFS Level Per Nursing on Admit: 4+=Very High Copy Copies To 1: JAMES GRAVES APRN, MD Aug 05, 2016 21:06
--- NOTE | 2016-08-06 08:45 | Physician Query-General Query ---
Physician Query-General Query to Physician: For further clarification: Was atypical pneumonia ruled in or out after study? PHYSICIAN RESPONSE: Based on the clinical findings in the record, please respond to the query above on this document as an addendum. Possible, probable, or questionable diagnosis can be coded for INPATIENTS ONLY. Physician Response: Physician Response RULED OUT If you have questions please contact: Corrosion Engineer:Norah Sanchez CCS,CCDS Ext:[phone] Thank you for your time and cooperation. Clinical Offender Job Retention Specialist/Corrosion Engineer This is a permanent part of the medical record NORAH SANCHEZ Aug 06, 2016 08:45 JAMES MENDEZ MD Aug 11, 2016 19:09
[2016-08-21] MEDS ORDERED: VANC250C4 PO (08:01)
== END 2016-07-25 11:00 | DRG 372 ==
LOC: EDUNIT# 10:37 → ER 10:38 → 4TH 14:39
PROVIDERS: ADMIT Pediatrics; ATTEND Pediatrics
DX: A04.7 Enterocolitis due to Clostridium difficile (principal); E86.0 Dehydration; J98.11 Atelectasis; J44.1 Chronic obstructive pulmonary disease with (acute) exacerbation; I69.351 Hemiplegia and hemiparesis following cerebral infarction affecting right dominant side; I69.322 Dysarthria following cerebral infarction; M25.561 Pain in right knee; M06.9 Rheumatoid arthritis, unspecified; G47.00 Insomnia, unspecified; F03.90 Unspecified dementia, unspecified severity, without behavioral disturbance, psychotic disturbance, mood disturbance, and anxiety; F41.9 Anxiety disorder, unspecified; F32.9 Major depressive disorder, single episode, unspecified; E78.5 Hyperlipidemia, unspecified; R53.81 Other malaise; R29.6 Repeated falls; Z89.432 Acquired absence of left foot; Z87.891 Personal history of nicotine dependence; Z95.820 Peripheral vascular angioplasty status with implants and grafts; Z99.81 Dependence on supplemental oxygen; Z96.649 Presence of unspecified artificial hip joint
CPT/HCPCS: 36415; 51701; 71020; 73562; 80053; 81000; 83605; 83690; 85007; 85025; 85027; 87040; 87324; 87449; 94640; 94760; 96361; 96365

== ENCOUNTER → 2016-08-21 | Day surgery (SDC) | payer MEDICARE, MEDICAID ==
[~2016-08-21] VITALS: Ht 162.6 cm; Wt 74.5 kg
[~2016-08-21] MED LIST changes: +CHOL10003 PO; +DIATRIZOATE MEGLUM/SODIUM 37% 120 ML (GASTROGRAFIN) NG ONE; +ETAN50DI2 INJ; +LEVO750T39 PO; +ONDANSETRON 4 MG/2 ML (SDV) Z0FRAN IVP ONE; +ONDANSETRON 4 MG/2 ML (SDV) Z0FRAN ONE; +OXYC-464 PO; +VANC250C4 PO; +fentaNYL INJECTION 100 MCG/2 ML AMP IVP PRN; +fentaNYL INJECTION 100 MCG/2 ML AMP ONE
--- OUTSIDE RECORDS SUMMARY | 2016-08-21 07:19 | XMS REPORT | Continuity of Care Document ---
Author Author [facility] Organization [facility] Address Unknown Phone Unavailable Care Team Providers Care Bench Assembler Name Role Phone PCP Unavailable Source Comments Some departments are not documenting in the electronic medical record. 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 Social History Tobacco Use Types Packs/Day Years Used Date Former Smoker Quit: 05/28/2013 Last Filed Vital Signs Vital Sign Reading Time Taken Blood Pressure 146/59 07/04/2013 2:19 PM TRAINING OFFICER Pulse 73 07/04/2013 2:19 PM TRAINING OFFICER Temperature 35.9 C (96.6 F) 07/04/2013 2:17 PM TRAINING OFFICER Respiratory Rate 14 07/04/2013 2:17 PM TRAINING OFFICER Height 1.6 m (5' 3") 07/04/2013 2:17 PM TRAINING OFFICER Weight 58.968 kg (130 lb) 07/04/2013 2:17 PM TRAINING OFFICER Body Mass Index 23.03 07/04/2013 2:17 PM TRAINING OFFICER Oxygen Saturation - - Plan of Care Health Maintenance Due Date Last Done Comments Physical (Comprehensive) 1957 Exam Pertussis Vaccine 1960 Tetanus Vaccine 1966 Breast Cancer Screening 1989 Colorectal Cancer 1999 Screening Shingles Vaccine 2009 Osteoporosis Screening 2014 Prevnar/Pneumovax (#1) 2014 Influenza Vaccine 03/13/2016 Results from Last 3 Months Not on file
[2016-08-21 07:20] VITALS: BP 131/66
--- OUTSIDE RECORDS SUMMARY | 2016-08-21 07:20 | XMS REPORT | Continuity of Care Document ---
Author Author [facility] Organization [facility] Address Unknown Phone Unavailable Care Team Providers Care Fabric And Textile Factory Worker Name Role Phone PCP Unavailable Source Comments Some departments are not documenting in the electronic medical record. If you do not see the information that you expected, contact Release of Information in the Health Information Management department at [phone] for further assistance in locating additional records.[facility] Active Allergies and Adverse Reactions No [...] in remission 07/07/2013 PAD (peripheral artery disease) (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 Social History Tobacco Use Types Packs/Day Years Used Date Former Smoker Quit: 05/28/2013 Last Filed Vital Signs Vital Sign Reading Time Taken Blood Pressure 146/59 07/04/2013 2:19 PM MOBILE UNIT ASSISTANT Pulse 73 07/04/2013 2:19 PM MOBILE UNIT ASSISTANT Temperature 35.9 C (96.6 F) 07/04/2013 2:17 PM MOBILE UNIT ASSISTANT Respiratory Rate 14 07/04/2013 2:17 PM MOBILE UNIT ASSISTANT Height 1.6 m (5' 3") 07/04/2013 2:17 PM MOBILE UNIT ASSISTANT Weight 58.968 kg (130 lb) 07/04/2013 2:17 PM MOBILE UNIT ASSISTANT Body Mass Index 23.03 07/04/2013 2:17 PM MOBILE UNIT ASSISTANT Oxygen Saturation - - Plan of Care Health Maintenance Due Date Last Done Comments Physical (Comprehensive) 1957 Exam Pertussis Vaccine 1960 Tetanus Vaccine 1966 Breast Cancer Screening 1989 Colorectal Cancer 1999 Screening Shingles Vaccine 2009 Osteoporosis Screening 2014 Prevnar/Pneumovax (#1) 2014 Influenza Vaccine 03/13/2016 Results from Last 3 Months Not on file
[2016-08-21] MEDS: CATHETER FLUSH 10 ML SYR IV PRN ×3 (08:00→13:40)
--- NOTE | 2016-08-21 09:51 | Progress Note-Post Operative ---
Post-Operative Progess Note Pre-Operative Diagnosis change in bowel habits. Right lower quadrant abdominal pain. Post-Operative Diagnosis sigmoid diverticular Post-Op Procedure Note Date of Procedure: Aug 21, 2016 Name of Procedure: ccolonoscopy to cecum Anesthesia Type sedation GRETEL TOTH MD Aug 21, 2016 9:51 am
--- NOTE | 2016-08-21 09:51 | Progress Note-Pre Operative ---
Pre-Operative Progress Note H&P Reviewed The H&P was reviewed, patient examined and no changes noted. Date H&P Reviewed: Aug 21, 2016 Time H&P Reviewed: 09:12 Pre-Operative Diagnosis: change in bowel habits. Right lower quadrant abdominal pain. GRETEL TOTH MD Aug 21, 2016 9:51 am
[2016-08-21 13:58] VITALS: BP 131/66
--- NOTE | 2016-08-21 15:39 | Diagnostic Imaging Report ---
EXAMINATION: Jejunal tube placement with fluoroscopic guidance/difficult procedure. INDICATION: Enteric tube in the small bowel is requested to be placed for fecal transplant therapy. Current history and physical and other medical records are reviewed prior to the procedure. CONSENT: Informed consent was obtained from the patient. The risks, benefits, potential complications and alternatives were reviewed and all questions answered to the patient's satisfaction. The patient's vital signs, cardiac rhythm, and pulse oximetry with observed throughout the procedure by qualified nursing personnel. Sedation/medications: None. PROCEDURE: After maximal sterile barrier technique preparation and draping, 1% lidocaine was utilized for local anesthesia. The naso-enteric tube is initially placed under fluoroscopic guidance. Access into the stomach was relatively straightforward. The patient was uncomfortable and was slightly gagging; however, she was able to tolerate the procedure. The tube, however, kept folding in the stomach and did not cross into the pylorus. The wire that comes with the tube was introduced and multiple attempts were made under fluoroscopic guidance to cross the pylorus without success. The tube was then removed over a wire and an angled glide catheter was introduced and was negotiated with wire assistance through the pylorus. This was advanced with gradual process into the proximal jejunum. Then, the catheter was removed with the wire in place and the orojejunal tube was placed again over the wire. The patient was very uncomfortable and it had to be advanced very slowly with total procedure time of 50 minutes needed to eventually advance the nasoenteric tube with the tip in proximal jejunum. During the procedure, 10 cc of contrast was placed to ensure intraluminal location due to difficulty advancing the tube and the contrast injection was followed by images that demonstrate intraluminal location. FINDINGS: Difficult but eventually successful placement of a nasoenteric tube with the tip in the proximal jejunum. IMPRESSION: Fluoroscopic-guided placement of nasoenteric tube. Dictated by: Dictated on workstation # [id number]
[2016-08-21 15:50] VITALS: BP 131/66
--- NOTE | 2016-08-21 16:26 | Diagnostic Imaging Report ---
INDICATION: Enteric tube check and adjustment with fluoroscopic guidance. 40 cc of Gastrografin is utilized and 2 minutes and 30 seconds of fluoroscopy time used. INDICATION: Inability to inject through the enteric tube. FINDINGS: High resistance to injection of contrast was found. The tube was imaged with loops in the stomach. No obvious kink. A guidewire is passed and is stopped in one of the loops along the distal aspect of the stomach suggestive of point of obstruction. This was subsequently improved by pulling the NG tube with the gastric portion of the tube now in the cardia of the stomach. At this point the injection was repeated and the contrast is seen to flow freely into the proximal jejunum. IMPRESSION: The tube was obstructed by a kink in the stomach. This was relieved by pulling the tube about 15 cm. Dictated by: Dictated on workstation # [id number]
--- NOTE | 2016-08-22 09:51 | Progress Note-Post Operative ---
Post-Operative Progess Note Pre-Operative Diagnosis persistentaand recurrent C. difficile colitis Post-Op Procedure Note Name of Procedure: fecal transplant using a postpyloric feeding tube GRETEL TOTH MD Aug 22, 2016 9:51 am
--- NOTE | 2016-08-24 08:32 | OPERATIVE REPORT ---
PROCEDURE PHYSICIAN: GREETL TOTH DATE OF PROCEDURE: 08/21/2016 DIAGNOSIS: Recurrent and persistent Clostridium difficile colitis PROCEDURE: Fecal transplant using a post-pyloric feeding tube placement. INDICATION FOR THE PROCEDURE: This lady has been treated for recurrent and persistent Clostridium difficile colitis. After careful consideration, it is felt reasonable to attempt fecal transplant using the family member as a donor. Informed consent was obtained after reviewing the procedure in detail. DESCRIPTION OF PROCEDURE: Following her admission to the outpatient surgery area, a feeding tube was placed by our radiologist and the tip was located at the duodenojejunal flexure. She was then brought back to the endoscopy suite and the fecal material obtained from her son after careful screening was admixed with saline in the microbiology lab under sterile conditions. It was then strained and injected into the jejunum using the existing feeding tube. Zofran was used to prevent nausea. She tolerated the procedure and the tube was removed at the end. She remained stable during the 3 hour observation following the transplant. Job ID: [id number] Dictated Date: 08/22/2016 09:53:34 Turn Out Worker Date: 08/24/2016 08:28:34 / ernesto
== END | disposition home or self-care (01) ==
LOC: ENDO 07:15
PROVIDERS: ATTEND Surgery
DX: A04.7 Enterocolitis due to Clostridium difficile (principal)
CPT/HCPCS: 44500; 74340

== ENCOUNTER 2016-11-14 13:29 | Outpatient (RCR) | payer MEDICARE, MEDICAID ==
[~2016-11-14 13:29] MED LIST changes: -DIATRIZOATE MEGLUM/SODIUM 37% 120 ML (GASTROGRAFIN) NG ONE; -ONDANSETRON 4 MG/2 ML (SDV) Z0FRAN IVP ONE; -ONDANSETRON 4 MG/2 ML (SDV) Z0FRAN ONE; -fentaNYL INJECTION 100 MCG/2 ML AMP IVP PRN; -fentaNYL INJECTION 100 MCG/2 ML AMP ONE
[2016-12-17] MEDS ORDERED: NF-ESOM40C PO ×2 (14:49)
[2016-12-17] MEDS ORDERED: HYDR-3820 PO ×2 (14:49)
[2016-12-17] MEDS ORDERED: DICL100G18 TP ×2 (14:49)
[2016-12-17] MEDS ORDERED: MULT-192 PO ×2 (14:49)
[2016-12-24] MEDS ORDERED: OXYC-197 PO ×2 (10:07)
== END 2016-12-23 16:13 | disposition home or self-care (01) ==
PROVIDERS: ATTEND Nurse Practitioner Community Health
DX: I69.354 Hemiplegia and hemiparesis following cerebral infarction affecting left non-dominant side (principal)

== ENCOUNTER → 2016-11-19 | Outpatient (CLI) | payer MEDICARE, MEDICAID ==
--- NOTE | 2016-11-19 16:36 | Diagnostic Imaging Report ---
PROCEDURE: CT chest without contrast. TECHNIQUE: Multiple contiguous axial images were obtained through the chest without the use of intravenous contrast. INDICATION: Followup lung nodules. COMPARISON: 11/22/2015. FINDINGS: There is a nodule in the superior segment of the left lower lobe measuring 5 mm axial image 22 stable from 11/22/2015. Previously seen nodule in the right upper lobe has resolved. There is however development of curvilinear areas of subsegmental consolidation within the posterior and superior segments of the left lower lobe presumably related to atelectasis. No significant consolidation or mass is seen otherwise. No pleural or pericardial effusion. The thoracic aorta is normal in caliber. No significantly enlarged mediastinal lymph nodes are seen. No axillary lymphadenopathy. The osseous structures demonstrate mild degenerative changes. IMPRESSION: 1. Stable 5 mm nodule in the superior segment of the right lower lobe from 11/22/2015 exam. 2. Curvilinear pattern of subsegmental consolidation involving the superior segment and posterior segment of the left lower lobe favored to be related to atelectasis. Correlate clinically to rule out the less likely possibility of infection. 3. A followup study in 4 to 6 months is recommended to reevaluate. Dictated by: Dictated on workstation # [id number]
== END ==
LOC: RAD 12:28
PROVIDERS: ATTEND Nurse Practitioner Family
DX: R91.1 Solitary pulmonary nodule (principal); R09.02 Hypoxemia; Z72.0 Tobacco use
CPT/HCPCS: 71250

== ENCOUNTER → 2016-12-15 | Outpatient (CLI) | payer MEDICARE, MEDICAID ==
[~2016-12-15] MED LIST changes: +DICL100G18 TP; +MULT-192 PO; +RT-ALBUTEROL SULF 2.5 MG/3 ML PRE-MIX VIAL IH ONE
== END ==
LOC: RT 12:53
PROVIDERS: ATTEND Internal Medicine Critical Care Medicine
DX: J43.8 Other emphysema (principal); R06.02 Shortness of breath; F41.9 Anxiety disorder, unspecified
CPT/HCPCS: 94060; 94640; 94726; 94729

== ENCOUNTER 2016-12-17 09:56 | Outpatient (CLI) | payer MEDICARE, MEDICAID ==
[~2016-12-17] VITALS: Ht 162.6 cm; Wt 83.5 kg
[~2016-12-17 09:56] MED LIST changes: -DICL100G18 TP; -MULT-192 PO; -RT-ALBUTEROL SULF 2.5 MG/3 ML PRE-MIX VIAL IH ONE
[2016-12-17 10:19] VITALS: BP 123/58
[2016-12-17 10:39] LABS: BASOPHILS # (AUTO) 0.1 10^3/uL (0.0-0.1); BASOPHILS % (AUTO) 1 % (0-10); EOSINOPHILS # (AUTO) 0.4 10^3/uL (0.0-0.3); EOSINOPHILS % (AUTO) 4 % (0-10); LYMPHOCYTES # (AUTO) 3.8 X 10^3 (1.0-4.0); LYMPHOCYTES % (AUTO) 36 % (12-44); MEAN CORPUSCULAR HEMOGLOBIN 30 PG (25-34); MEAN CORPUSCULAR HGB CONC 32 G/DL (32-36); MEAN CORPUSCULAR VOLUME 94 FL (80-99); MEAN PLATELET VOLUME 9.5 FL (7.4-10.4); MONOCYTES # (AUTO) 1.2 X 10^3 (0.0-1.0); MONOCYTES % (AUTO) 12 % (0-12); NEUTROPHILS # (AUTO) 5.1 X 10^3 (1.8-7.8); NEUTROPHILS % (AUTO) 48 % (42-75); PLATELET COUNT 378 10^3/uL (130-400); RED BLOOD COUNT 4.43 10^6/uL (4.35-5.85); RED CELL DISTRIBUTION WIDTH 14.7 % (10.0-14.5); WHITE BLOOD COUNT 10.7 10^3/uL (4.3-11.0)
[2016-12-17 10:53] LABS: INR 0.9 (0.8-1.4)
[2016-12-17 11:02] LABS: ALANINE AMINOTRANSFERASE 36 U/L (0-55); ALBUMIN 3.8 G/DL (3.2-4.5); ANION GAP 8 MMOL/L (5-14); ASPARTATE AMINO TRANSFERASE 45 U/L (5-34); BILIRUBIN,TOTAL 0.8 MG/DL (0.1-1.0); BLOOD UREA NITROGEN 19 MG/DL (7-18); BUN/CREATININE RATIO 26; CALCIUM 9.3 MG/DL (8.5-10.1); CARBON DIOXIDE 28 MMOL/L (21-32); CHLORIDE 105 MMOL/L (98-107); CREATININE SERUM 0.74 MG/DL (0.60-1.30); GFR ESTIMATED > 60; GLUCOSE 92 MG/DL (70-105); POTASSIUM 4.1 MMOL/L (3.6-5.0); SODIUM 141 MMOL/L (135-145)
[2016-12-17 11:03] LABS: ERYTHROCYTE SEDIMENTATION RATE 24 MM/HR (0-30)
[2016-12-17 11:03] LABS: BILIRUBIN,URINE NEGATIVE (NEGATIVE); KETONES,URINE NEGATIVE (NEGATIVE); LEUKOCYTE ESTERASE ,URINE 1+ (NEGATIVE); NITRITE,URINE NEGATIVE (NEGATIVE); PH,URINE 5 (5-9); PROTEIN,URINE NEGATIVE (NEGATIVE); UROBILINOGEN,URINE NORMAL (NORMAL)
[2016-12-17 11:16] LABS: WBC,URINE 0-2 /HPF
--- NOTE | 2016-12-17 14:27 | Diagnostic Imaging Report ---
EXAMINATION: PA and lateral views of the chest. INDICATION: Preoperative evaluation. FINDINGS: There is pulmonary hyperinflation, suggestive of COPD, with no focal infiltrate. The heart size is borderline enlarged. No effusion or pneumothorax. The mediastinum and beny appear unremarkable. IMPRESSION: Hyperinflated clear lungs. Borderline cardiac size. Dictated by: Dictated on workstation # [id number]
[2016-12-17] MEDS ORDERED: MULT-192 PO (14:49)
[2016-12-17] MEDS ORDERED: DICL100G18 TP (14:49)
[2016-12-17] MEDS ORDERED: NF-ESOM40C PO (14:49)
[2016-12-17] MEDS ORDERED: HYDR-3820 PO (14:49)
== END 2016-12-17 14:51 | disposition home or self-care (01) ==
LOC: PREOP 09:56
PROVIDERS: ATTEND Orthopaedic Surgery
DX: Z01.810 Encounter for preprocedural cardiovascular examination (principal); Z01.811 Encounter for preprocedural respiratory examination; Z01.812 Encounter for preprocedural laboratory examination; Z11.2 Encounter for screening for other bacterial diseases; M17.11 Unilateral primary osteoarthritis, right knee; R53.83 Other fatigue
CPT/HCPCS: 36415; 71020; 80053; 81000; 85025; 85610; 85652; 86850; 86900; 86901; 87081; 93005

== ENCOUNTER 2016-12-24 05:57 | Inpatient (IN) | payer MEDICARE, MEDICAID ==
--- NOTE | 2016-12-16 15:03 | HISTORY AND PHYSICAL ---
DATE OF SERVICE: REASON FOR ADMISSION: Right total knee arthroplasty. HISTORY OF PRESENT ILLNESS: The patient is a 66-year-old female with longstanding progressive right knee pain weakness and stiffness. Radiograph reveals severe tricompartmental osteoarthritis. She has undergone treatment with injections, activity modifications and physical therapy without relief. The patient and her family understand she is extremely high risk for perioperative complications due to her extensive past medical history. They have elected to proceed with surgical intervention due to her failure to improve with extensive conservative measures. REVIEW OF SYSTEMS: No recent chest pain, no shortness of breath, no dysuria. PAST MEDICAL HISTORY: Emphysema, peripheral vascular disease, tobacco use, hyperlipidemia, degenerative disk disease, pancreatitis, left lower extremity arterial insufficiency, anemia, anxiety disorder, atrial fibrillation, COPD, cerebrovascular accident, depression, skin cancer, dysphagia, chronic pain, edema, hypertension, insomnia, osteoarthritis, reflux and allergic rhinitis. PAST SURGICAL HISTORY: Right total hip arthroplasty, right lower extremity angioplasty, left foot partial amputation. FAMILY HISTORY: Noncontributory. PRIMARY CARE PROVIDER: Dr. Maddox. MEDICATIONS: Hydrocodone, doxepin, gabapentin, pravastatin, ranitidine, verapamil, Spiriva, Symbicort, albuterol, Zoloft, Voltaren, cetirizine, aspirin, alprazolam. ALLERGIES: LEVAQUIN AND ROCEPHIN. SOCIAL HISTORY: The patient denies alcohol and tobacco use. PHYSICAL EXAMINATION: GENERAL: The patient is well developed, well nourished in no acute distress. HEENT: Normocephalic, atraumatic. Pupils are equal, round and react to light. Oropharynx is clear. NECK: Supple with no lymphadenopathy. LUNGS: Clear to auscultation bilaterally. HEART: Regular rate and rhythm. ABDOMEN: Soft, nontender and nondistended. EXTREMITIES: The right knee demonstrates a moderate effusion. There is no right , no skin lesions are noted. She can perform straight leg range. Her active range of motion is 0/15/95. There is no varus or valgus laxity. Negative anterior and posterior drawer. Passive range of motion is 0/10/120. IMPRESSION: Severe right knee osteoarthritis. PLAN: Right total knee arthroscopy. The risks, benefits, options, ramifications and recovery have been discussed at length with the patient. She understands and wishes to proceed. Job ID: [id number] DocumentID: [id number] Dictated Date: 12/16/2016 13:05:53 Floral Department Specialist Date: 12/16/2016 14:21:37 Dictated By: SABINO MADERA MD
[~2016-12-24] VITALS: Ht 162.6 cm; Wt 83.5 kg
[~2016-12-24 05:57] MED LIST changes: +DICL100G18 TP; +MULT-192 PO
[2016-12-24] MEDS ORDERED: NS (IVPB) 50 ML ONE (06:04)
[2016-12-24] MEDS ORDERED: CEFUROXIME 1.5 GM (ZINACEF) VIAL ONE (06:04)
[2016-12-24] MEDS ORDERED: proPOfol 200 MG/20 ML (DIPRIVAN) VIAL IV ONE ×2 (06:31→09:02)
[2016-12-24] MEDS ORDERED: fentaNYL INJECTION 100 MCG/2 ML AMP ONE (06:31)
[2016-12-24] MEDS ORDERED: ROCURONIUM 50 MG/5 ML (ZEMURON) VIAL IV ONE (06:31)
[2016-12-24] MEDS ORDERED: MIDAZOLAM 10 MG/2 ML (VERSED) VIAL ONE (06:31)
[2016-12-24] MEDS ORDERED: LIDOCAINE PF 2% 5 ML (XYLOCAINE) VIAL ONE ×2 (06:31→09:02)
[2016-12-24] MEDS ORDERED: ONDANSETRON 4 MG/2 ML (SDV) Z0FRAN ONE (06:32)
[2016-12-24] MEDS ORDERED: DEXAMETHASONE PF 10 MG/ML (DECADRON) VIAL ONE (06:32)
[2016-12-24] MEDS ORDERED: FAMOTIDINE 20MG/2ML IV (PEPCID) ONE (06:38)
[2016-12-24] MEDS: LACTATED RINGERS 1,000 ML IV PRN ×2 (06:45→08:05)
[2016-12-24] MEDS ORDERED: RT-ALBUTEROL SULF 2.5 MG/3 ML PRE-MIX VIAL ONE (06:46)
[2016-12-24] MEDS ORDERED: FAMOTIDINE 20MG/2ML IV (PEPCID) IVP ONE (07:00)
[2016-12-24 07:08] VITALS: BP 114/63
--- NOTE | 2016-12-24 07:19 | Progress Note-Pre Operative ---
Pre-Operative Progress Note H&P Reviewed The H&P was reviewed, patient examined and no changes noted. Date Seen by Provider: Dec 24, 2016 Time Seen by Provider: 07:11 Date H&P Reviewed: Dec 24, 2016 Time H&P Reviewed: 07:07 Pre-Operative Diagnosis: right knee primary osteoarthritis SABINO MADERA MD Dec 24, 2016 07:19
--- NOTE | 2016-12-24 07:20 | Progress Note-Post Operative ---
Post-Operative Progess Note Surgeon (s)/Grails Web Application Developer (s) Surgeon SABINO MADERA MD Grails Web Application Developer: bryan Shen Pre-Operative Diagnosis right knee primary osteoarthritis Post-Operative Diagnosis right knee primary osteoarthritis Procedure & Operative Findings Date of Procedure 12/24/16 Procedure Performed/Findings right total knee arthroplasty Anesthesia Type spinal Estimated Blood Loss Estimated blood loss (mL): minimal Specimens/Packing Specimens Removed none Packing: none SABINO MADERA MD Dec 24, 2016 07:20
[2016-12-24] MEDS ORDERED: CEFUROXIME 1.5 GM/NS 50 ML IVPB IV ONE ×2 (07:30)
[2016-12-24] MEDS ORDERED: INTRA-ARTICULAR INJ ONE ×5 (07:30)
[2016-12-24] MEDS ORDERED: morphine INJ 10 MG/ML 1ML (SYR OR VIAL) ONE (09:01)
[2016-12-24] MEDS ORDERED: LACTATED RINGERS 2,000 ML IV ONE (09:09)
[2016-12-24] MEDS ORDERED: ONDANSETRON 4 MG/2 ML (SDV) Z0FRAN IV PRN (09:30)
[2016-12-24] MEDS ORDERED: morphine INJ 10 MG/ML 1ML (SYR OR VIAL) IVP PRN (09:30)
--- NOTE | 2016-12-24 09:46 | OPERATIVE REPORT ---
DATE OF SERVICE: 12/24/2016 PREOPERATIVE DIAGNOSIS: Right knee primary osteoarthritis. POSTOPERATIVE DIAGNOSIS: Right knee primary osteoarthritis. PROCEDURE: Right total knee arthroplasty. SURGEON: Chucky Flores MD PEDIATRIC HOSPITALIST: MANDY Borrero, who assisted throughout the procedure and closed the incisions. ANESTHESIA: Spinal by Tono Duke CRNA. TOURNIQUET TIME: Approximately 70 minutes at 300 mmHg. ESTIMATED BLOOD LOSS: Minimal. DRAINS: None. COMPLICATIONS: None. MATERIALS: Microport, cemented size 4 Revolution femur, cemented size 2 Advance tibia with a 65 mm stem, 10 mm insert and a cemented size 32 patella button. DISPOSITION: The patient was transported to the recovery room, awake and in stable condition. POSTOPERATIVE PLAN: Routine total knee arthroplasty protocol. STATEMENT OF MEDICAL NECESSITY: The patient is a 66-year-old female with longstanding progressive right knee pain, stiffness and limitations of activity. Radiographs revealed tricompartmental osteoarthritis. She had undergone treatment with injections, anti-inflammatories and rest. The patient understood she was at high risk for perioperative complications due to her extensive past medical history. Despite this, she and her family elected to proceed with surgical intervention. DESCRIPTION OF PROCEDURE: After risks and benefits of the procedure were discussed and questions were answered, an informed consent was signed and placed in the chart. The operative site was confirmed in the preoperative holding area and initialed by the surgeon. The patient was then transported to the operating room after adequate levels of regional anesthetic were obtained. A timeout was called, confirming the operative site. The right lower extremity was prepped and draped in the usual sterile fashion. With leg elevated and the knee flexed, tourniquet was inflated to 300 mmHg. A standard anterior port was utilized. Hemostasis was obtained with cautery. A medial parapatellar arthrotomy was performed, leaving 1 cm cuff on the patella for later reattachment. A portion of the fat pad was resected. The ACL was resected. Subperiosteal release was performed of the proximal medial tibia with a curved osteotome. A small flake of bone was taken with the periosteum. The intramedullary guide was passed into the femur and the distal cutting block was placed. A distal cut was made in the femur and was sized to a size 4. The 4 cutting block was placed parallel to the epicondylar access and the cuts were made from posterior to anterior. Subperiosteal release was then carefully performed of the posterior distal femur, being careful to stay on the bony surface. The intramedullary guide was then passed into the tibia and the cutting block was placed. The drop amy transected to the intermalleolar access and the cut was made. This was then prepared with a drill and keel punch, reaming to a size 16, 65 mm stem. The trials were inserted. The trochlear cut was made off the femur. The 10 mm insert was placed and the patella was prepared using the free-hand technique by resecting 10 mm off the undersurface. The peg guide was placed and the peg holes were drilled. The patellar trial was placed. The knee was taken through range of motion. Full extension was easily obtained to 120 degrees, flexion was easily obtained with gravity. There was no anterior/posterior or medial/lateral laxity on flexion or extension. The trials were removed. The joint was irrigated with pulse lavage. The periarticular block was placed in the posterior capsule, medial and lateral retinaculum, extensor mechanism and subcutaneous tissues. The bone ends were irrigated and dried. The tibial base plate was cemented into position and excessive cement was removed. The superior surface was irrigated. The polyethylene insert was placed. The distal femur was irrigated and dried and the femoral prosthesis was cemented into position, excessive cement was removed. The knee was brought into full extension until the cement had cured. The undersurface of the patella was irrigated and dried. The patella button was cemented into position, excessive cement was removed. Once the cement had cured, the knee was taken through range of motion. Full extension was easily obtained. The patella tracked well throughout range of motion. One-hundred twenty degrees of flexion with gravity was easily obtained. There was no anterior/posterior or medial/lateral laxity in flexion or extension. The joint was further irrigated with pulse lavage. The arthrotomy was closed with #2 Tevdek in [id number] interrupted fashion. The knee was flexed and no undue tension was noted at the repair site and the patella tracked well. An 0 Vicryl was used for the deep and subcutaneous tissue after further irrigating subcutaneous tissue. A 2-0 Vicryl was used for subcutaneous tissue and rhett were used on the skin. A soft dressing was applied. The tourniquet was deflated and the patient transported to the recovery room awake and in stable condition. Job ID: [id number] DocumentID: [id number] Dictated Date: 12/24/2016 09:17:43 Hoop Riveting Machine Operator Helper Date: 12/24/2016 09:45:14 Dictated By: CHUCKY FLORES MD
--- NOTE | 2016-12-24 09:59 | Diagnostic Imaging Report ---
INDICATION: Right knee pain. AP and lateral views of the right knee show postop changes from joint arthroplasty. Alignment and positioning appear normal. There is no acute fracture or evidence of loosening. IMPRESSION: Good alignment the right knee following joint arthroplasty. Dictated by: Dictated on workstation # [id number]
--- NOTE | 2016-12-24 10:04 | Progress Note-Standard ---
Standard Progress Note Progress Notes/Assess & Plan Date Seen by Provider: Dec 24, 2016 Time Seen by Provider: 10:00 Progress/Assessment & Plan Post op check patient comfortable spinal still in effect Radiographs--HW well positioned. No fractures RLE--PT pulse at baseline with brisk cap refill intact DF and PF of toes s/p RTKA mobilize when able SABINO MADERA MD Dec 24, 2016 10:04
[2016-12-24] MEDS ORDERED: OXYC-197 PO ×2 (10:07)
[2016-12-24] MEDS ORDERED: morphine PCA 30 MG/30 ML VIAL IV PRN (10:15)
[2016-12-24] MEDS ORDERED: ACETAMINOPHEN 325 MG TABLET/CAPLET (TYLENOL) PO PRN (10:15)
[2016-12-24] MEDS ORDERED: diphenhydrAMINE 50 MG/ML INJ (BENADRYL) IVP PRN (10:15)
[2016-12-24] MEDS ORDERED: ONDANSETRON 4 MG/2 ML (SDV) Z0FRAN IVP PRN (10:15)
[2016-12-24 10:35] VITALS: BP 101/65
[2016-12-24] MEDS: NS IV 1000 ML 1,000 ML IV SCH ×2 (10:54→23:15)
--- NOTE | 2016-12-24 11:32 | Physical Therapy Evaluation ---
PT Evaluation-General Medical Diagnosis Admission Date Dec 24, 2016 at 05:57 Medical Diagnosis: right Onset Date: Dec 24, 2016 Therapy Diagnosis Therapy Diagnosis: Impaired mobility, strength, ROM Height/Weight Height (Feet): 5 Height (Inches): 4.00 Weight (Pounds): 184 Weight (Ounces): 1.0 Precautions Precautions/Isolations: Fall Prevention, Standard Precautions Weight Bear Status Weight Bearing Restriction: Weight Bearing/Tolerated Location Restriction: R LE Referral Physician: Ugo Shen Reason for Referral: Evaluation/Treatment Medical History Pertinent Medical History: Atrial Fib, COPD, CVA, PVD, Rheumatoid Arthritis, Smoking Additional Medical History Emphysema, peripheral vascular disease, tobacco use, hyperlipidemia, degenerative disk disease, pancreatitis, left lower extremity arterial insufficiency, anemia, anxiety disorder, atrial fibrillation, COPD, cerebrovascular accident, depression, skin cancer, dysphagia, chronic pain, edema, hypertension, insomnia, osteoarthritis, reflux and allergic rhinitis. PAST SURGICAL HISTORY: Right total hip arthroplasty, right lower extremity angioplasty, left foot partial amputation. Current History right TKA Reviewed History: Yes Social History Home: Single Level Current Living Status: Alone Entry Into Home: Ramp Patient states she will always have help there available. Prior/Core FIM Prior Level of Function Functional [place] Measure 0=Not Assessed/NA 4=Minimal Assistance 1=Total Assistance 5=Supervision or Setup 2=Maximal Assistance 6=Modified [place] 3=Moderate Assistance 7=Complete [place] Bed Mobility: 6 Transfers (B,C,W/C) (FIM): 6 Gait: 6 Patient used a combination of walker and wheelchair previously. PT Evaluation-Current Subjective Patient in bed pre tx, agrees to PT, has pain of 2/10 in right knee. Pt/Family Goals to be independent at home Objective Patient Orientation: Person, Place, Situation Attachments: Oxygen, IV ROM/Strength ROM Lower Extremities right knee flexion 60 degrees, extension +5 degrees Strenght Lower Extremities NT Integumentary/Posture Bowel Incontinence: No Bladder Incontinence: No Neuromuscular (Tone, Coordination, Reflexes) WNL Sensory Vision: Wears Glasses Hearing: Functional Sensation Right Lower Extremit: Intact Sensation Left Lower Extremity: Intact Transfers Functional [place] Measure 0=Not Assessed/NA 4=Minimal Assistance 1=Total Assistance 5=Supervision or Setup 2=Maximal Assistance 6=Modified [place] 3=Moderate Assistance 7=Complete [place] Transfers (B, C, W/C) (FIM): 2 Scootin Rollin Supine to/from Sit: 4 Sit to/from Stand: 4 Patient performed supine to sit with min assist, sit to stand with CGA, no dizziness Gait Mode of Locomotion: Walk Anticipated Mode of Locomotion: Walk Gait (FIM): 1 Distance: 3' Gait Level of Assist: 4 Gait Persons Needed: 1 Gait Assistive Device: FWW Comments/Gait Description Patient was able to take a few sideways steps toward the head of the bed with min assist. She is not able to bear much weight through her left leg (non- surgery side) Balance Sitting Static: Normal Sitting Dynamic: Normal Standing Static: Fair Standing Dynamic: Fair Treatment right knee protocol x10 (AP, QS, HS, SAQ, SLR) Assessment/Needs Patient has impaired mobility, strength, ROM post right TKA. Patient BTB post tx, applied the CPM at 44/-2, patient had a lot of draining in her knee, nurse notified and they were in there changing her dressing when PT left. Rehab Potential: Fair PT Conference Services Manager Goals Half-Way Goals PT Half-Way Goals Time Frame: Dec 31, 2016 Transfers (B,C,W/C) (FIM): 5 Gait (FIM): 2 Distance: 50' Gait Level of Assist: 4 Gait Assistive Device: FWW PT Plan Problem List Problem List: Activity Tolerance, Functional Strength, Safety, Balance, Gait, Transfer, Bed Mobility, ROM Treatment/Plan Treatment Plan: Continue Plan of Care Treatment Plan: Bed Mobility, Education, Functional Activity [place], Functional Strength, Gait, Safety, Therapeutic Exercise, Transfers Treatment Duration: Dec 31, 2016 # of days/week 5-6 Visits Per Week: 10-11 Minutes/Day (M-F): 15-30 Minutes/Day (Sat/Brooks): 15-30 Pt/Family Agrees w/Plan: Yes Safety Risks/Education Patient Education: Gait Training, Transfer Techniques, Correct Positioning, Safety Issues Teaching Recipient: Patient Teaching Methods: Demonstration, Discussion Response to Teaching: Reinforcement Needed Discharge Recommendations Plan Patient will perform bed mobility and transfer training, balance and endurance training, functional strengthening, stair training, gait training, and education , to improve functional mobility and independence at home. Time/GCodes Time In: 1100 Time Out: 1130 Total Billed Treatment Time: 30 Total Billed Treatment 1 visit EVL 15' EX 15' YANDEL DIOP PT Dec 24, 2016 11:32
[2016-12-24] MEDS: oxyCODONE/APAP 5/325MG (PERCOCET 5) TABLET PO PRN ×4 (13:55→22:56)
[2016-12-24 15:41] VITALS: BP 151/64
--- NOTE | 2016-12-24 15:42 | Physical Therapy Daily Note ---
PT Daily Note-Current Subjective Pt reclined in recliner upon arrival. Pt's daughter states pt just got to recliner and got comfortable. Pt agrees to Pt ed for tx. Pain Numeric Pain Scale: 7 Location: Right Location Body Site: Knee Pain Description: Ache, Tightness Mental Status Patient Orientation: Person, Place, Situation Attachments: Oxygen (2L), Polar Pack Transfers Functional [place] Measure 0=Not Assessed/NA 4=Minimal Assistance 1=Total Assistance 5=Supervision or Setup 2=Maximal Assistance 6=Modified [place] 3=Moderate Assistance 7=Complete IndependenceIRFPAI Quality Coding Scale 6 Independent with activity with or without an assistive device 5 Patient requires set up or clean up by helper. Patient completes activity by themselves 4 Supervision or touching assist (CGA). [place] provide cues , steadying assist 3 The helper provides less than half the effort to complete the activity 2 The helper provides more than half the effort to complete the activity 1 Dependent. The helper does all the effort to complete an activity 7 Patient refused to complete or attempt activity 9 The patient did not perform the activity before the current illness or injury 88 Not attempted due to Medical conditions or safety concerns Treatments PT educated pt & daughter on how polar packs work and how they fit on the knee, the purpose of CPM and importance of using until more mobility completed as well as benefits of PT. Pt had difficulty staying awake during discussion. Pt is laying in recliner at end of tx with all needs met. Assessment Current Status: Fair Progress Pt has had pain and trying to stay on top of pain has been the problem at this point. PT Alf Goals Automobile Mechanic Assistant Goals PT Automobile Mechanic Assistant Goals Time Frame: Dec 31, 2016 Transfers (B,C,W/C) (FIM): 5 Gait (FIM): 2 Distance: 50' Gait Level of Assist: 4 Gait Assistive Device: FWW PT Plan Problem List Problem List: Activity Tolerance, Functional Strength, Safety, Balance, Gait, Transfer, Bed Mobility Treatment/Plan Treatment Plan: Continue Plan of Care Treatment Plan: Bed Mobility, Education, Functional Activity [place], Functional Strength, Gait, Safety, Therapeutic Exercise, Transfers Treatment Duration: Dec 31, 2016 Visits Per Week: 10-11 Minutes/Day (M-F): 15-30 Minutes/Day (Sat/Brooks): 15-30 Safety Risks/Education Patient Education: Reviewed Use of Ice, Correct Positioning, Disease Process, Safety Issues Teaching Recipient: Patient, Family Teaching Methods: Discussion Response to Teaching: Verbalize Understanding Time/GCodes Time In: 1500 Time Out: 1525 Total Billed Treatment Time: 25 Total Billed Treatment visit, FA x2 (25m) RORO SINGLETON MAGICIAN/ILLUSIONIST Dec 24, 2016 15:42
[2016-12-24] MEDS: CEFUROXIME INJECTION 750 MG in NS (IVPB) 50 ML IV SCH (17:45)
[2016-12-24 19:55] VITALS: BP 148/74
[2016-12-24] MEDS: SENNA W/DOCUSATE (SENOKOT S) TABLET PO SCH (20:03)
[2016-12-25] VITALS (10 sets, daily range): BP systolic 108–138; BP diastolic 56–77
[2016-12-25] MEDS: oxyCODONE/APAP 5/325MG (PERCOCET 5) TABLET PO PRN ×5 (00:48→17:50)
[2016-12-25] MEDS ORDERED: meTOprolol TARTRATE 25 MG (LOPRESSOR) TABLET PO ONE (01:45)
[2016-12-25] MEDS: CEFUROXIME INJECTION 750 MG in NS (IVPB) 50 ML IV SCH (01:51)
[2016-12-25] MEDS: MULTIVIT W/MINERALS TAB (THERAGRAN M) PO SCH (05:19)
--- NOTE | 2016-12-25 07:47 | Progress Note-Standard ---
Standard Progress Note Progress Notes/Assess & Plan Date Seen by Provider: Dec 25, 2016 Time Seen by Provider: 07:46 Progress/Assessment & Plan Post op check patient comfortable spinal still in effect Radiographs--HW well positioned. No fractures RLE--PT pulse at baseline with brisk cap refill intact DF and PF of toes s/p RTKA mobilize when able Final Diagnosis No complaints Vital Signs Date Time Temp Pulse Resp B/P (MAP) Pulse Ox O2 Delivery O2 Flow Rate FiO2 12/25/16 07:39 98.3 79 20 122/61 99 Nasal Cannula 2.00 12/25/16 07:21 96 Nasal Cannula 3.00 12/25/16 05:21 16 12/25/16 04:00 96.4 134 13 115/56 97 Nasal Cannula 2.00 12/25/16 02:25 96 Nasal Cannula 3.00 12/25/16 00:00 96.2 138 20 121/68 97 Room Air 12/25/16 00:00 96.2 138 20 121/68 97 Nasal Cannula 2.00 12/24/16 22:06 94 Nasal Cannula 3.00 12/24/16 20:00 Nasal Cannula 2.00 12/24/16 19:55 98.0 80 20 148/74 92 Nasal Cannula 2.00 12/24/16 18:46 98 Nasal Cannula 3.00 12/24/16 18:00 14 12/24/16 15:41 97.6 82 16 151/64 96 Nasal Cannula 2.00 12/24/16 15:01 97 Nasal Cannula 3.00 12/24/16 11:39 98 Nasal Cannula 3.00 12/24/16 10:57 20 12/24/16 10:35 96.0 70 18 101/65 96 Nasal Cannula 2.00 I & O 12/25/16 07:00 Intake Total 3110 ml Output Total 2950 ml Balance 160 ml Laboratory Tests Test 12/25/16 06:09 Range/Units Hemoglobin 10.7 L 11.5-16.0 G/DL Hematocrit 34 L 35-52 % RLE--dressing intact. Flexion 60 deg. No calf tenderness. NVI distally s/p RTKA PT/OT NH Thursday SABINO MADERA MD Dec 25, 2016 07:47
[2016-12-25] MEDS: ENOXAPARIN 30 MG/0.3 ML (LOVENOX) SYR SC SCH ×2 (08:12→20:30)
[2016-12-25] MEDS: SENNA W/DOCUSATE (SENOKOT S) TABLET PO SCH ×2 (08:12→20:29)
[2016-12-25] MEDS: ASPIRIN E.C. 81 MG (ECOTRIN) TAB PO SCH (08:12)
--- NOTE | 2016-12-25 09:02 | Consultation ([facility]) ---
HPI History of Present Illness: 66yo woman well known to me presented to hospital for elective knee repair. The surgery went well with no immediate complications. 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 SHe also has a history of stroke and early dementia along with atrial fibrillation. I am consulted for medical management. Overnight, her HR increased to garrick 120-130s. I ordered metoprolol 25mg once, and she responded nicely with HR <100. This morning, Lona had an episode where she became diaphoretic and animated. Rapid response was called. She denied chest pain. She denied pain. She was tachypneic, but other vitals were unchanged. EKG was done and showed no changes. The nurses gave her a percocet tablet in garrick event taht she was in pain and unable to tell us. The episode resolved spontaneously. WHen I saw her, she continued to be aphasic. She was able to tell me her name was "Lona Rock" but then said "no" as though she knew that was not the correct answer. She was unable to tell me she was in hospital. She became tearful during the discussion which appeared to be a degree of frustration. She did tell me she was in pain. Source: patient Exam Limitations: physical impairment Date seen by provider: Dec 25, 2016 Time Seen by Provider: 09:15 Attending Physician Chucky Flores MD PCP Mihai Reyes MD Consult Date of Admission Dec 24, 2016 at 05:57 Home Medications Home Medications Reviewed patient Home Medication Reconciliation Form Allergies Coded Allergies: levofloxacin (Verified Allergy, Severe, C-DIFF, 12/17/16) ceftriaxone (Verified Allergy, Unknown, 12/17/16) OTT-Dfyssl-Syczut Hx Patient Social History Alcohol Use: Denies Use Recreational Drug Use: No Smoking Status: Former Smoker Former smoker/When Quit: Feb 16, 2014 Type Used: Cigarettes 2nd Hand Smoke Exposure: No Recent Foreign Travel: No Contact w/other who traveled: No Recent Hopitalizations: No Recent Infectious Disease Expo: No Physical Abuse Screen: No Sexual Abuse: No Immunizations Up To Date Tetanus Booster (TDap): More than 5yrs Date of Pneumonia Vaccine: Aug 05, 2013 Date of Influenza Vaccine: Apr 12, 2016 Past Medical History Past Medical History 1. ASOD - history of bilateral stents BLE Dr. Sevilla, redo stenting Dr. Engel Lt. SFA 02/23 2. Pancreatitis 2003 3. Hyperlipidemia 4. Chronic obstructive pulmonary disease 5. RA previously evaluated by Dr. Javier 6. History of skin cancer of the face 7. Dry Gangrene Lt. Foot s/p amputation 8. "Spider Bite" with wound Left shoulder with tissue 9 DJD 10. Insomnia 11. Stroke with dysarthria and right sided weakness Past Surgical History 1. Hip Replacement 2003 2. BLE Stents RT. 2003, Lt. 2012 x3 by Sevilla (on coumadin for short period post stent) stopped by Sevilla 3. Otolaryngologic surgery for CA bridge of nose and inner canthus of rt. eye 2009 4. Athrectomy with Lt. SFA stent Toro 02/23 5. Rt. SFA, popliteal and anterior tibial arthrectomy Toro 03/26 6. Left forefoot amputation-Reveal Family Medical History Significant Family History: Heart Disease Family History: Cancer 09 SISTER Family history: Arthritis 09 BROTHER 09 SISTER Family history: Cardiovascular disease 09 SISTER Family history: Thyroid disorder 09 SISTER Malignant neoplasm of lung 09 SISTER Review of Systems ([facility]) Time Seen by Provider: 09:15 Constitutional: no symptoms reported (unable to obtain) Reviewed Test Results Reviewed Test Results Lab Laboratory Tests Test 12/25/16 06:09 Range/Units Hemoglobin 10.7 L 11.5-16.0 G/DL Hematocrit 34 L 35-52 % Physical Exam-([facility]) Physical Exam Vital Signs VS - Last 72 Hours, by Label 12/24/16 12/24/16 12/24/16 12/24/16 06:54 07:08 10:35 10:57 Temp 98.1 96.0 Pulse 68 70 Resp 20 18 20 B/P (MAP) 114/63 101/65 Pulse Ox 96 90 96 O2 Delivery Nasal Cannula Room Air Nasal Cannula O2 Flow Rate 2.00 2.00 12/24/16 12/24/16 12/24/16 12/24/16 11:39 15:01 15:41 18:00 Temp 97.6 Pulse 82 Resp 16 14 B/P (MAP) 151/64 Pulse Ox 98 97 96 O2 Delivery Nasal Cannula Nasal Cannula Nasal Cannula O2 Flow Rate 3.00 3.00 2.00 12/24/16 12/24/16 12/24/16 12/24/16 18:46 19:55 20:00 22:06 Temp 98.0 Pulse 80 Resp 20 B/P (MAP) 148/74 Pulse Ox 98 92 94 O2 Delivery Nasal Cannula Nasal Cannula Nasal Cannula Nasal Cannula O2 Flow Rate 3.00 2.00 2.00 3.00 12/25/16 12/25/16 12/25/16 12/25/16 00:00 00:00 02:25 04:00 Temp 96.2 96.2 96.4 Pulse 138 138 134 Resp 20 20 13 B/P (MAP) 121/68 121/68 115/56 Pulse Ox 97 97 96 97 O2 Delivery Nasal Cannula Room Air Nasal Cannula Nasal Cannula O2 Flow Rate 2.00 3.00 2.00 12/25/16 12/25/16 12/25/16 12/25/16 05:21 07:21 07:39 07:45 Temp 98.3 Pulse 79 Resp 16 20 B/P (MAP) 122/61 Pulse Ox 96 99 99 O2 Delivery Nasal Cannula Nasal Cannula Nasal Cannula O2 Flow Rate 3.00 2.00 2.00 12/25/16 12/25/16 12/25/16 12/25/16 08:57 10:00 10:06 10:29 Temp 98.1 98.3 Pulse 78 84 84 Resp 16 20 24 B/P (MAP) 110/70 108/68 Pulse Ox 96 98 96 97 O2 Delivery Nasal Cannula Nasal Cannula Nasal Cannula O2 Flow Rate 3.00 3.00 2.00 12/25/16 12/25/16 11:00 12:00 Temp 98.0 97.9 Pulse 80 71 Resp 18 18 B/P (MAP) 123/64 130/75 Pulse Ox 97 96 O2 Delivery Nasal Cannula Nasal Cannula O2 Flow Rate 3.00 3.00 Capillary Refill : General Appearance: WD/WN, no apparent distress HEENT: PERRL/EOMI, normal ENT inspection, pharynx normal Neck: non-tender, full range of motion, supple, normal inspection Respiratory: chest non-tender, lungs clear, normal breath sounds, no respiratory distress, no accessory muscle use Cardiovascular: no edema, no gallop, no JVD, no murmur, irregularly irregular Gastrointestinal: normal bowel sounds, non tender, soft Assessment/Plan Assessment/Plan Plan R TKA - managed by Dr Flores's team - would advise that we be somewhat cautious in narcotics use. 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 In addition, narcotics can alter her sensorium and make episodes such as today more frequent/severe. DEMENTIA STROKE WITH RESULTANT APHASIA - patient appears to be doing well as of now - recommend that family stay with her as much as possible to reassure her and also help us communicate with her ATRIAL FIBRILLATION - needs to be on exterminator helper anticoagulation DVT PROPHYLAXIS - lovenox 40mg Diagnosis/Problems: Clinical Quality Measures DVT/VTE Risk/Contraindication: Risk Factor Score Per Nursin RFS Level Per Nursing on Admit: 4+=Very High Copy Copies To 1: JAMES GRAVES APRN, MD Dec 25, 2016 09:02
--- NOTE | 2016-12-25 09:11 | Physical Therapy Progress Note ---
Therapy Progress Note Per RN, rapid response was called secondary to decline in patient's medical status. PT visited with patient and nursing staff. Patient is aphasic and appears distressed. PT will attempt later today if medically stable. 1 visit LIA CARBALLO PT Dec 25, 2016 09:11
--- NOTE | 2016-12-25 10:32 | Occupational Therapy Eval ---
OT Evaluation-General/PLF Medical Diagnosis Admission Date Dec 24, 2016 at 05:57 Medical Diagnosis: R total knee replacemen Onset Date: Dec 24, 2016 Therapy Diagnosis Therapy Diagnosis: decr self care, decr funct mobility, decr activity cathie, weakness Height/Weight Height (Feet): 5 Height (Inches): 4.00 Weight (Pounds): 184 Weight (Ounces): 1.0 Precautions Precautions/Isolations: Fall Prevention, Standard Precautions Safety Interventions: Bed Exit Alarm, Reorient-Attempt, Reorient-PRN Weight Bear Status Weight Bearing Restriction: Weight Bearing/Tolerated Location Restriction: R LE Referral Physician: Ugo hSen Referral Reason: Evaluation/Treatment Medical History Pertinent Medical History: Atrial Fib, COPD, CVA, PVD, Rheumatoid Arthritis, Smoking Additional Medical History Emphysema, DJD, pancreatitis in 2003, L LE arterial insufficiency, anemia, dysphagia, chronic pain, edema, insomnia, reflux. R total hip, LE angioplasty, L foot partial amputation. Anxiety, depression Current History Elective total knee Reviewed History: Yes Social History Home: Single Level Current Living Status: Alone Entry Into Home: Ramp ADL-Prior Level of Function ADL PLOF Comments Pt said that she had 24 hour help with her ADLs and indicated that she needed help with dressing, bathing, toileting, grooming, eating. Pt is poor historian due to aphasia DME/Equipment Comments Unknown equipment OT Current Status Subjective Pt seen in room, up in bed, agreeable to OT. Pt unable to rate pain but could push button for pain meds. Appearance Pt very anxious and fidgeting with multiple tubes and wires Mental Status/Objective Patient Orientation: Person Attachments: Central Line, Oxygen, SCD's, Other-See Comments Current Glasses/Contacts: Yes Hearing Aids: No Dentures/Partials: Yes Hand Dominance: Right (pt indicated she is R handed bus has to use her left, after CVA) Upper Extremity ROM L UE grossly WFL. R grossly WFL but lags behind L Upper Extremity Strength Grossly WFL, weaker on R ADL-Treatment ADL-Current Pt was able to take small steps to stand-pivot transfer from bed to BSC. Steps limited in part due to decreased functional use L LE. Pt also was able to take small steps, with skilled cues, to transfer to recliner. Sat before it was safe for her. Did not want legs elevated and fidgeted constantly with tubes and wires. Functional [place] Measure 0=Not Assessed/NA 4=Minimal Assistance 1=Total Assistance 5=Supervision or Setup 2=Maximal Assistance 6=Modified [place] 3=Moderate Assistance 7=Complete IndependenceIRFPAI Quality Coding Scale 6 Independent with activity with or without an assistive device 5 Patient requires set up or clean up by helper. Patient completes activity by themselves 4 Supervision or touching assist (CGA). [place] provide cues , steadying assist 3 The helper provides less than half the effort to complete the activity 2 The helper provides more than half the effort to complete the activity 1 Dependent. The helper does all the effort to complete an activity 7 Patient refused to complete or attempt activity 9 The patient did not perform the activity before the current illness or injury 88 Not attempted due to Medical conditions or safety concerns Toileting (FIM): 3 (Pt was able to hold clothing out of the way but was not able to wipe after toileting, BSC) Transfers (B, C, W/C) (FIM): 4 (Able to get legs to EOB, then min-CGA to get up from EOB. FWW) Toilet/Commode Transfer (FIM): 4 (Min assist to get off BSC placed beside bed. ) Pt was left up in recliner, call light present, O2 in place, all needs met. She declined to eat her breakfast but did take yoghurt parfait. Education OT Patient Education: Modified ADL techniques, Purpose of tx/functional activities, Rehab process, Safety issues, Transfer techniques Teaching Recipient: Patient Teaching Methods: Demonstration, Discussion Response to Teaching: Return Demonstration, Reinforcement Needed OT Hand Ii Tube Bender Goals [facility] Goals Time Frame: Dec 27, 2016 Eating (FIM): 5 Grooming(FIM): 5 Bathing(FIM): 4 Upper Body Dressing(FIM): 5 Lower Body Dressing(FIM): 5 Toileting(FIM): 5 Toilet/Commode Transfer(FIM): 5 Additional Goals: 1-Demonstrate ADL Tasks, 2-Verbalize Understanding, 3- ImproveStrength/Clau 1=Demonstrate adherence to instructed precautions during ADL tasks. 2=Patient will verbalize/demonstrate understanding of assistive devices/ modifications for ADL. 3=Patient will improve strength/tolerance for activity to enable patient to perform ADL's. OT Education/Plan Problem List/Assessment Assessment: Decreased Safety Aware, Decreased UE Strength, Dependent Transfers , Impaired Funct Balance, Impaired Self-Care Skills Pt would benefit from skilled OT to increase her independence in basic self care to allow her to safely return to her home after elective total knee replacement Discharge Recommendations Plan/Recommendations: Continue POC Therapy D/C Recommendations: Group Home (TCU/NH) Target Placement assisted on Thursday Treatment Plan/Plan of Care Treatment,Training & Education: Yes Patient would benefit from OT for education, treatment and training to promote independence in ADL's, mobility, safety and/or upper extremity function for ADL' s. Plan of Care: ADL Retraining, Functional Mobility, UE Funct Exercise/Act, UE Neuromus Re-Ed/Coord Treatment Duration: Dec 27, 2016 # of days/week 3 Visits Per Week: 3 Agreement: Yes Rehab Potential: Fair Time/GCodes Start Time: 09:50 Stop Time: 10:20 Total Time Billed (hr/min): 30 Billed Treatment Time visit, 15 minutes evaluation moderate intensity, ADL FRANK ALEMAN OT Dec 25, 2016 10:32
--- NOTE | 2016-12-25 11:25 | Physical Therapy Daily Note ---
PT Daily Note-Current Subjective Patient agrees to PT. Pain Numeric Pain Scale: 5-Moderate Pain Location: Right Location Body Site: Knee Pain Description: Acute Appearance supine in bed with right knee flexed at 45 degrees and heel pressing into mattress Mental Status Patient Orientation: Confused, Non-Verbal/Aphasic Attachments: Oxygen, IV Transfers Functional [place] Measure 0=Not Assessed/NA 4=Minimal Assistance 1=Total Assistance 5=Supervision or Setup 2=Maximal Assistance 6=Modified [place] 3=Moderate Assistance 7=Complete IndependenceIRFPAI Quality Coding Scale 6 Independent with activity with or without an assistive device 5 Patient requires set up or clean up by helper. Patient completes activity by themselves 4 Supervision or touching assist (CGA). [place] provide cues , steadying assist 3 The helper provides less than half the effort to complete the activity 2 The helper provides more than half the effort to complete the activity 1 Dependent. The helper does all the effort to complete an activity 7 Patient refused to complete or attempt activity 9 The patient did not perform the activity before the current illness or injury 88 Not attempted due to Medical conditions or safety concerns Transfers (B, C, W/C) (FIM): 4 Scootin Rollin Supine to/from Sit: 5 Sit to/from Stand: 4 Bed to/from Chair: 4 CGA with sit to stand and transfer to recliner with FWW and gait belt use Weight Bearing Weight Bearing Restriction: Weight Bearing/Tolerated Location Restriction: R LE Gait Training Gait (FIM): 1 Distance (FIM): 1=up to 49 ft (3') Distance: 3' Gait Level of Assist: 4 Gait Persons Needed: 1 Gait Assistive Device: FWW extreme flexed right knee posture in stand and with taking steps Exercises Supine Ex: Ankle pumps, Quad Set, Heel Slides, Straight leg raise Supine Reps: 10 (AAROM right LE) bilateral LE exercises to improve ROM right knee and to increase strength to ambulate with FWW to allow safe and functional return to home or care facility. Assessment Patient is progressing slowly with treatment. Patient is having difficulty with word finding and becomes increasingly frustrated. Possible ST assessment needed. PT [facility] Goals Tapper Balance Wheel Screw Hole Goals PT [facility] Goals Time Frame: Dec 31, 2016 Transfers (B,C,W/C) (FIM): 5 Gait (FIM): 2 Distance: 50' Gait Level of Assist: 4 Gait Assistive Device: FWW PT Plan Treatment/Plan Treatment Plan: Continue Plan of Care Treatment Plan: Bed Mobility, Education, Functional Activity Clau, Functional Strength, Gait, Safety, Therapeutic Exercise, Transfers Treatment Duration: Dec 31, 2016 Visits Per Week: 10-11 Minutes/Day (M-F): 15-30 Minutes/Day (Sat/Brooks): 15-30 Time/GCodes Time In: 1035 Time Out: 1100 Total Billed Treatment Time: 25 Total Billed Treatment 1 visit FA 10 min EX 15 min LIA CARBALLO PT Dec 25, 2016 11:25
[2016-12-25] MEDS: NS IV 1000 ML 1,000 ML IV SCH (12:28)
[2016-12-25 12:45] LABS: BASOPHILS % (AUTO) 0 % (0-10); EOSINOPHILS % (AUTO) 0 % (0-10); LYMPHOCYTES # (AUTO) 4.1 X 10^3 (1.0-4.0); LYMPHOCYTES % (AUTO) 21 % (12-44); MEAN CORPUSCULAR HEMOGLOBIN 30 PG (25-34); MEAN CORPUSCULAR HGB CONC 32 G/DL (32-36); MEAN CORPUSCULAR VOLUME 96 FL (80-99); MEAN PLATELET VOLUME 9.7 FL (7.4-10.4); MONOCYTES # (AUTO) 2.3 X 10^3 (0.0-1.0); MONOCYTES % (AUTO) 12 % (0-12); NEUTROPHILS # (AUTO) 13.1 X 10^3 (1.8-7.8); NEUTROPHILS % (AUTO) 67 % (42-75); PLATELET COUNT 344 10^3/uL (130-400); RED BLOOD COUNT 3.64 10^6/uL (4.35-5.85); RED CELL DISTRIBUTION WIDTH 14.9 % (10.0-14.5); WHITE BLOOD COUNT 19.4 10^3/uL (4.3-11.0)
--- NOTE | 2016-12-25 12:49 | Anesthesia-General Post-Op ---
General Patient Condition Mental Status/LOC: Same as Preop Cardiovascular: Satisfactory Nausea/Vomiting: Absent Respiratory: Satisfactory Pain: Controlled Complications: Absent Post Op Complications Complications None Follow Up Care/Instructions Patient Instructions None needed. Anesthesia/Patient Condition Patient Condition Patient is doing well, no complaints, stable vital signs, no apparent adverse anesthesia problems. TAMIR AHUMADA DO Dec 25, 2016 12:49
[2016-12-25 13:04] LABS: ALANINE AMINOTRANSFERASE 31 U/L (0-55); ALBUMIN 3.6 GM/DL (3.2-4.5); ANION GAP 8 MMOL/L (5-14); ASPARTATE AMINO TRANSFERASE 31 U/L (5-34); BILIRUBIN,TOTAL 0.7 MG/DL (0.1-1.0); BLOOD UREA NITROGEN 16 MG/DL (7-18); BUN/CREATININE RATIO 23 (0-20); CALCIUM 9.2 MG/DL (8.5-10.1); CARBON DIOXIDE 25 MMOL/L (21-32); CHLORIDE 110 MMOL/L (98-107); CREATININE SERUM 0.69 MG/DL (0.60-1.30); GFR ESTIMATED > 60; GLUCOSE 111 MG/DL (70-105); HEMOLYSIS 4 (0-29); ICTERUS 0.5 (0-1.9); LIPEMIA 6 (0-49); SODIUM 143 MMOL/L (135-145); TOTAL PROTEIN 6.7 GM/DL (6.4-8.2)
[2016-12-25 13:06] LABS: LYMPHOCYTES % (MANUAL) 21 %; NEUTROPHILS % (MANUAL) 73 %
--- NOTE | 2016-12-25 13:12 | Physical Therapy Daily Note ---
PT Daily Note-Current Subjective Patient agrees to PT. Pain Numeric Pain Scale: 5-Moderate Pain Location: Right Location Body Site: Knee Pain Description: Acute Comment: FLACC Mental Status Patient Orientation: Non-Verbal/Aphasic Attachments: Oxygen, IV Transfers Functional [place] Measure 0=Not Assessed/NA 4=Minimal Assistance 1=Total Assistance 5=Supervision or Setup 2=Maximal Assistance 6=Modified [place] 3=Moderate Assistance 7=Complete IndependenceIRFPAI Quality Coding Scale 6 Independent with activity with or without an assistive device 5 Patient requires set up or clean up by helper. Patient completes activity by themselves 4 Supervision or touching assist (CGA). [place] provide cues , steadying assist 3 The helper provides less than half the effort to complete the activity 2 The helper provides more than half the effort to complete the activity 1 Dependent. The helper does all the effort to complete an activity 7 Patient refused to complete or attempt activity 9 The patient did not perform the activity before the current illness or injury 88 Not attempted due to Medical conditions or safety concerns Transfers (B, C, W/C) (FIM): 4 Scootin Rollin Supine to/from Sit: 5 Sit to/from Stand: 4 Bed to/from Chair: 4 Patient displays ~45 degrees extension lag in sit and stand CGA for safety with use of gait belt and FWW Exercises Supine Ex: Ankle pumps, Quad Set, Heel Slides, Short Arc Quads, Straight leg raise Supine Reps: 10 right LE AAROM with all; left LE AROM exercises to improve ROM right knee to allow safe and functional gait with FWW Assessment Patient tolerated treatment well and is in bed with needs met. Patient right knee flexion 85 degrees AROM, however, lacks 45 degrees extension and is very resistive with AAROM. PT Marketing Summer Intern Goals Marketing Summer Intern Goals PT Marketing Summer Intern Goals Time Frame: Dec 31, 2016 Transfers (B,C,W/C) (FIM): 5 Gait (FIM): 2 Distance: 50' Gait Level of Assist: 4 Gait Assistive Device: FWW PT Plan Treatment/Plan Treatment Plan: Continue Plan of Care Treatment Plan: Bed Mobility, Education, Functional Activity Clau, Functional Strength, Gait, Safety, Therapeutic Exercise, Transfers Treatment Duration: Dec 31, 2016 Visits Per Week: 10-11 Minutes/Day (M-F): 15-30 Minutes/Day (Sat/Brooks): 15-30 Time/GCodes Time In: 1230 Time Out: 1300 Total Billed Treatment Time: 30 Total Billed Treatment 1 visit EX 20 min FA 10 min LIA CARBALLO PT Dec 25, 2016 13:11
[2016-12-26] MEDS: NS IV 1000 ML 1,000 ML IV SCH (00:25)
[2016-12-26] MEDS: oxyCODONE/APAP 5/325MG (PERCOCET 5) TABLET PO PRN ×3 (00:25→18:35)
[2016-12-26 00:45] VITALS: BP 160/73
[2016-12-26 04:00] VITALS: BP 139/66
[2016-12-26] MEDS: MULTIVIT W/MINERALS TAB (THERAGRAN M) PO SCH (06:38)
--- NOTE | 2016-12-26 06:57 | Progress Note-Standard ---
Standard Progress Note Progress Notes/Assess & Plan Date Seen by Provider: Dec 26, 2016 Time Seen by Provider: 06:55 Progress/Assessment & Plan Post op check patient comfortable spinal still in effect Radiographs--HW well positioned. No fractures RLE--PT pulse at baseline with brisk cap refill intact DF and PF of toes s/p RTKA mobilize when able Final Diagnosis No complaints Vital Signs Date Time Temp Pulse Resp B/P (MAP) Pulse Ox O2 Delivery O2 Flow Rate FiO2 12/26/16 04:00 98.8 93 18 139/66 93 Nasal Cannula 2.00 12/26/16 02:05 93 Nasal Cannula 2.00 12/26/16 00:45 99.5 92 18 160/73 94 Nasal Cannula 2.00 12/25/16 23:13 94 Nasal Cannula 2.00 12/25/16 20:35 98.2 93 20 135/75 94 Nasal Cannula 2.00 12/25/16 20:30 99 Nasal Cannula 2.00 12/25/16 19:46 18 12/25/16 18:58 93 Nasal Cannula 2.00 12/25/16 16:50 98.1 104 18 125/75 95 Nasal Cannula 2.00 12/25/16 15:08 96 Nasal Cannula 2.00 12/25/16 12:00 97.9 71 18 130/75 96 Nasal Cannula 3.00 12/25/16 11:00 98.0 80 18 123/64 97 Nasal Cannula 3.00 12/25/16 10:29 97 Nasal Cannula 2.00 12/25/16 10:06 84 24 96 12/25/16 10:00 98.3 84 20 108/68 98 Nasal Cannula 3.00 12/25/16 08:57 98.1 78 16 110/70 96 Nasal Cannula 3.00 12/25/16 07:45 99 Nasal Cannula 2.00 12/25/16 07:39 98.3 79 20 122/61 99 Nasal Cannula 2.00 12/25/16 07:21 96 Nasal Cannula 3.00 I & O 12/26/16 07:00 Intake Total 2500 ml Output Total 200 ml Balance 2300 ml Laboratory Tests Test 12/25/16 12:35 Range/Units White Blood Count 19.4 H 4.3-11.0 10^3/uL Red Blood Count 3.64 L 4.35-5.85 10^6/uL Hemoglobin 11.0 L 11.5-16.0 G/DL Hematocrit 35 35-52 % Mean Corpuscular Volume 96 80-99 FL Mean Corpuscular Hemoglobin 30 25-34 PG Mean Corpuscular Hemoglobin Concent 32 32-36 G/DL Red Cell Distribution Width 14.9 H 10.0-14.5 % Platelet Count 344 130-400 10^3/uL Mean Platelet Volume 9.7 7.4-10.4 FL Neutrophils (%) (Auto) 67 42-75 % Lymphocytes (%) (Auto) 21 12-44 % Monocytes (%) (Auto) 12 0-12 % Eosinophils (%) (Auto) 0 0-10 % Basophils (%) (Auto) 0 0-10 % Neutrophils # (Auto) 13.1 H 1.8-7.8 X 10^3 Lymphocytes # (Auto) 4.1 H 1.0-4.0 X 10^3 Monocytes # (Auto) 2.3 H 0.0-1.0 X 10^3 Eosinophils # (Auto) 0.0 0.0-0.3 10^3/uL Basophils # (Auto) 0.0 0.0-0.1 10^3/uL Neutrophils % (Manual) 73 % Lymphocytes % (Manual) 21 % Monocytes % (Manual) 6 % Basophilic Stippling SLIGHT Sodium Level 143 135-145 MMOL/L Potassium Level 4.0 3.6-5.0 MMOL/L Chloride Level 110 H 98-107 MMOL/L Carbon Dioxide Level 25 21-32 MMOL/L Anion Gap 8 5-14 MMOL/L Blood Urea Nitrogen 16 7-18 MG/DL Creatinine 0.69 0.60-1.30 MG/DL Estimat Glomerular Filtration Rate > 60 BUN/Creatinine Ratio 23 H 0-20 Glucose Level 111 H 70-105 MG/DL Calcium Level 9.2 8.5-10.1 MG/DL Total Bilirubin 0.7 0.1-1.0 MG/DL Aspartate Amino Transf (AST/SGOT) 31 5-34 U/L Alanine Aminotransferase (ALT/SGPT) 31 0-55 U/L Alkaline Phosphatase 87 40-136 U/L Total Protein 6.7 6.4-8.2 GM/DL Albumin 3.6 3.2-4.5 GM/DL RLE--incision clean and dry. No calf tenderness. Neg Aggie. s/p RTKA PT/OT CO SABINO MADERA MD Dec 26, 2016 06:56
[2016-12-26 07:20] LABS: BASOPHILS # (AUTO) 0.1 10^3/uL (0.0-0.1); BASOPHILS % (AUTO) 1 % (0-10); EOSINOPHILS # (AUTO) 0.1 10^3/uL (0.0-0.3); EOSINOPHILS % (AUTO) 1 % (0-10); LYMPHOCYTES # (AUTO) 3.5 X 10^3 (1.0-4.0); LYMPHOCYTES % (AUTO) 24 % (12-44); MEAN CORPUSCULAR HEMOGLOBIN 30 PG (25-34); MEAN CORPUSCULAR HGB CONC 31 G/DL (32-36); MEAN CORPUSCULAR VOLUME 97 FL (80-99); MEAN PLATELET VOLUME 9.8 FL (7.4-10.4); MONOCYTES # (AUTO) 1.8 X 10^3 (0.0-1.0); MONOCYTES % (AUTO) 13 % (0-12); NEUTROPHILS % (AUTO) 62 % (42-75); PLATELET COUNT 293 10^3/uL (130-400); RED BLOOD COUNT 3.42 10^6/uL (4.35-5.85); RED CELL DISTRIBUTION WIDTH 14.9 % (10.0-14.5); WHITE BLOOD COUNT 14.5 10^3/uL (4.3-11.0)
[2016-12-26 07:32] LABS: ANION GAP 11 MMOL/L (5-14); BLOOD UREA NITROGEN 13 MG/DL (7-18); BUN/CREATININE RATIO 23 (0-20); CALCIUM 9.2 MG/DL (8.5-10.1); CARBON DIOXIDE 22 MMOL/L (21-32); CHLORIDE 107 MMOL/L (98-107); CREATININE SERUM 0.57 MG/DL (0.60-1.30); GFR ESTIMATED > 60; GLUCOSE 101 MG/DL (70-105); HEMOLYSIS 19 (0-29); ICTERUS 1.4 (0-1.9); LIPEMIA 0 (0-49); POTASSIUM 3.8 MMOL/L (3.6-5.0); SODIUM 140 MMOL/L (135-145)
--- NOTE | 2016-12-26 08:45 | Progress Note (SOAP) ---
Subjective Subjective/Events-last exam pt sitting up in chair. able to speak a little to me today. still complaining of pain. Review of Systems Date Seen by Provider: Dec 26, 2016 Time Seen by Provider: 09:00 General: No Chills, No Night Sweats Gastrointestinal: Other Objective Exam Last Set of Vital Signs Vital Signs Date Time Temp Pulse Resp B/P (MAP) Pulse Ox O2 Delivery O2 Flow Rate FiO2 12/26/16 04:00 98.8 93 18 139/66 93 Nasal Cannula 2.00 Capillary Refill : I&O Intake and Output 12/26/16 00:00 Intake Total 1650 ml Output Total 1700 ml Balance -50 ml Intake Oral 600 ml IV Total 1050 ml Output Urine Total 1700 ml # Voids 3 # Bowel Movements 1 General: Alert, Oriented X3, Cooperative, No Acute Distress Lungs: Clear to Auscultation, Normal Air Movement Heart: Regular Rate, Normal S1, Normal S2, No Murmurs, Gallops, Rubs Abdomen: Normal Bowel Sounds, Soft, No Tenderness Extremities: No Clubbing, No Cyanosis, No Edema Results/Procedures Lab Laboratory Tests 12/25/16 12:35: White Blood Count 19.4H, Red Blood Count 3.64L, Hemoglobin 11.0L, Hematocrit 35 , Mean Corpuscular Volume 96, Mean Corpuscular Hemoglobin 30, Mean Corpuscular Hemoglobin Concent 32, Red Cell Distribution Width 14.9H, Platelet Count 344, Mean Platelet Volume 9.7, Neutrophils (%) (Auto) 67, Lymphocytes (%) (Auto) 21, Monocytes (%) (Auto) 12, Eosinophils (%) (Auto) 0, Basophils (%) (Auto) 0, Neutrophils # (Auto) 13.1H, Lymphocytes # (Auto) 4.1H, Monocytes # (Auto) 2.3H, Eosinophils # (Auto) 0.0, Basophils # (Auto) 0.0, Neutrophils % (Manual) 73, Lymphocytes % (Manual) 21, Monocytes % (Manual) 6, Basophilic Stippling SLIGHT, Sodium Level 143, Potassium Level 4.0, Chloride Level 110H, Carbon Dioxide Level 25, Anion Gap 8, Blood Urea Nitrogen 16, Creatinine 0.69, Estimat Glomerular Filtration Rate > 60, BUN/Creatinine Ratio 23H, Glucose Level 111H, Calcium Level 9.2, Total Bilirubin 0.7, Aspartate Amino Transf (AST/SGOT) 31, Alanine Aminotransferase (ALT/SGPT) 31, Alkaline Phosphatase 87, Total Protein 6.7, Albumin 3.6 12/26/16 06:55: White Blood Count 14.5H, Red Blood Count 3.42L, Hemoglobin 10.3L, Hematocrit 33L , Mean Corpuscular Volume 97, Mean Corpuscular Hemoglobin 30, Mean Corpuscular Hemoglobin Concent 31L, Red Cell Distribution Width 14.9H, Platelet Count 293, Mean Platelet Volume 9.8, Neutrophils (%) (Auto) 62, Lymphocytes (%) (Auto) 24, Monocytes (%) (Auto) 13H, Eosinophils (%) (Auto) 1, Basophils (%) (Auto) 1, Neutrophils # (Auto) 9.0H, Lymphocytes # (Auto) 3.5, Monocytes # (Auto) 1.8H, Eosinophils # (Auto) 0.1, Basophils # (Auto) 0.1, Sodium Level 140, Potassium Level 3.8, Chloride Level 107, Carbon Dioxide Level 22, Anion Gap 11, Blood Urea Nitrogen 13, Creatinine 0.57L, Estimat Glomerular Filtration Rate > 60, BUN /Creatinine Ratio 23H, Glucose Level 101, Calcium Level 9.2 Assessment/Plan Assessment/Plan Plan R TKA - managed by Dr Flores's team - would advise that we be somewhat cautious in narcotics use. 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 In addition, narcotics can alter her sensorium and make episodes such as today more frequent/severe. 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 recommend we concentrate on PO pain meds for now. DEMENTIA STROKE WITH RESULTANT APHASIA - patient appears to be doing well as of now - recommend that family stay with her as much as possible to reassure her and also help us communicate with her 6/*16 - improved today. continue to balance pain control with potential side efffects of confusion from narcotics. ATRIAL FIBRILLATION - needs to be on laborer marine terminal anticoagulation 12/26 - rate controlled, no chest pain DVT PROPHYLAXIS - lovenox 40mg Diagnosis/Problems: Clinical Quality Measures DVT/VTE Risk/Contraindication: Risk Factor Score Per Nursin RFS Level Per Nursing on Admit: 4+=Very High JAMES MENDEZ MD Dec 26, 2016 08:45
[2016-12-26 08:49] VITALS: BP 167/83
--- NOTE | 2016-12-26 09:42 | Physical Therapy Daily Note ---
PT Daily Note-Current Subjective Patient is supine in bed and agrees to PT. Pain Numeric Pain Scale: 5-Moderate Pain Location: Right Location Body Site: Knee Pain Description: Acute Mental Status Patient Orientation: Non-Verbal/Aphasic Attachments: Oxygen (2L) Transfers Functional [place] Measure 0=Not Assessed/NA 4=Minimal Assistance 1=Total Assistance 5=Supervision or Setup 2=Maximal Assistance 6=Modified [place] 3=Moderate Assistance 7=Complete IndependenceIRFPAI Quality Coding Scale 6 Independent with activity with or without an assistive device 5 Patient requires set up or clean up by helper. Patient completes activity by themselves 4 Supervision or touching assist (CGA). [place] provide cues , steadying assist 3 The helper provides less than half the effort to complete the activity 2 The helper provides more than half the effort to complete the activity 1 Dependent. The helper does all the effort to complete an activity 7 Patient refused to complete or attempt activity 9 The patient did not perform the activity before the current illness or injury 88 Not attempted due to Medical conditions or safety concerns Transfers (B, C, W/C) (FIM): 4 Scootin Rollin Supine to/from Sit: 5 Sit to/from Stand: 4 Bed to/from Chair: 4 CGA for safety with gait belt Weight Bearing Weight Bearing Restriction: Weight Bearing/Tolerated Location Restriction: LE Bilateral Gait Training Gait (FIM): 1 Distance (FIM): 1=up to 49 ft Distance: 5' Gait Level of Assist: 4 Gait Persons Needed: 1 Gait Assistive Device: FWW continues to have difficulty with right knee extension and is holding in 45 degrees extension Exercises Supine Ex: Ankle pumps, Quad Set, Heel Slides, Straight leg raise Supine Reps: 15 Seated Therapy Exercises: Ankle pumps, Long arc quads Seated Reps: 15 AAROM to improve right LE function with ambulation and overall mobility Assessment Current Status: Poor Progress Patient tolerated treatment well and is up in recliner to eat breakfast. Patient is incontinent urine and requires dependent assist to cleanse and change clothing. PT Advertising Account Representative Goals Residential Goals PT Advertising Account Representative Goals Time Frame: Dec 31, 2016 Transfers (B,C,W/C) (FIM): 5 Gait (FIM): 2 Distance: 50' Gait Level of Assist: 4 Gait Assistive Device: FWW PT Plan Treatment/Plan Treatment Plan: Continue Plan of Care Treatment Plan: Bed Mobility, Education, Functional Activity Cl[place], Functional Strength, Gait, Safety, Therapeutic Exercise, Transfers Treatment Duration: Dec 31, 2016 Visits Per Week: 10-11 Minutes/Day (M-F): 15-30 Minutes/Day (Sat/Brooks): 15-30 Time/GCodes Time In: 851 Time Out: 914 Total Billed Treatment Time: 23 Total Billed Treatment 1 visit FA 8 min EX 15 min LIA CARBALLO PT Dec 26, 2016 09:42
[2016-12-26] MEDS: ASPIRIN E.C. 81 MG (ECOTRIN) TAB PO SCH (09:56)
[2016-12-26] MEDS: SENNA W/DOCUSATE (SENOKOT S) TABLET PO SCH ×2 (09:56→21:13)
[2016-12-26] MEDS: ENOXAPARIN 30 MG/0.3 ML (LOVENOX) SYR SC SCH ×2 (09:56→21:11)
[2016-12-26 12:00] VITALS: BP 159/90
--- NOTE | 2016-12-26 14:58 | Physical Therapy Daily Note ---
PT Daily Note-Current Subjective Patient reluctantly agrees to PT. Pain Numeric Pain Scale: 8 Location: Right Location Body Site: Knee Comment: FLACC Appearance incontinent urine and BM Mental Status Patient Orientation: Non-Verbal/Aphasic Transfers Functional [place] Measure 0=Not Assessed/NA 4=Minimal Assistance 1=Total Assistance 5=Supervision or Setup 2=Maximal Assistance 6=Modified [place] 3=Moderate Assistance 7=Complete IndependenceIRFPAI Quality Coding Scale 6 Independent with activity with or without an assistive device 5 Patient requires set up or clean up by helper. Patient completes activity by themselves 4 Supervision or touching assist (CGA). [place] provide cues , steadying assist 3 The helper provides less than half the effort to complete the activity 2 The helper provides more than half the effort to complete the activity 1 Dependent. The helper does all the effort to complete an activity 7 Patient refused to complete or attempt activity 9 The patient did not perform the activity before the current illness or injury 88 Not attempted due to Medical conditions or safety concerns Transfers (B, C, W/C) (FIM): 4 Scootin Rollin Supine to/from Sit: 5 Sit to/from Stand: 4 Bed to/from Chair: 4 minimal assist with sit to stand and SPT with use of gait belt with assist of nursing to cleanse and change patient. Weight Bearing Location Restriction: R LE Gait Training Gait (FIM): 1 Distance (FIM): 1=up to 49 ft Distance: 15' Gait Level of Assist: 4 Gait Persons Needed: 1 Gait Assistive Device: FWW unsteady gait sequence with right knee flexed at 45 degrees Exercises Supine Ex: Ankle pumps, Quad Set, Heel Slides, Straight leg raise Supine Reps: 10 Seated Therapy Exercises: Ankle pumps, Long arc quads Seated Reps: 10 AAROM right LE with patient resisting with all movement. Exercise utilized to facilitate reciprocal movement bilateral LE and to improve ROM right LE to improve functional mobility. Treatments CPM 0-70 degrees Assessment Current Status: Poor Progress PT Usp Goals Usp Goals PT Usp Goals Time Frame: Dec 31, 2016 Transfers (B,C,W/C) (FIM): 5 Gait (FIM): 2 Distance: 50' Gait Level of Assist: 4 Gait Assistive Device: FWW PT Plan Treatment/Plan Treatment Plan: Continue Plan of Care Treatment Plan: Bed Mobility, Education, Functional Activity Clau, Functional Strength, Gait, Safety, Therapeutic Exercise, Transfers Treatment Duration: Dec 31, 2016 Visits Per Week: 10-11 Minutes/Day (M-F): 15-30 Minutes/Day (Sat/Brooks): 15-30 Discharge Recommendations Therapy D/C Recommendations: Fci Placement Time/GCodes Time In: 1300 Time Out: 1330 Total Billed Treatment Time: 30 Total Billed Treatment 1 visit FA 15 min EX 15 min LIA CARBALLO PT Dec 26, 2016 14:58
[2016-12-26] MEDS: morphine INJ 4 MG/ML 1 ML (VIAL/SYRINGE) IVP PRN (15:56)
--- NOTE | 2016-12-26 16:05 | Occ Therapy Progress Note ---
Therapy Progress Note 1540 Pt seen in room, up in bed, on CPM. Pt refused OT, stating that she was in too much pain. Pt unable to rate or describe pain except indicated it was in her knee. FRANK ALEMAN OT Dec 26, 2016 16:05
[2016-12-26 16:55] VITALS: BP 140/81
[2016-12-26] MEDS ORDERED: RT-ALBUTEROL/IPRATROPIUM 3 ML (DUONEB) VIAL ONE (18:41)
[2016-12-26] MEDS ORDERED: RT-ALBUTEROL/IPRATROPIUM 3 ML (DUONEB) VIAL INH PRN (19:15)
[2016-12-26 19:30] VITALS: BP 157/71
[2016-12-26] MEDS: RT-ALBUTEROL/IPRATROPIUM 3 ML (DUONEB) VIAL INH SCH (22:08)
[2016-12-27] VITALS (7 sets, daily range): BP systolic 110–168; BP diastolic 63–78
[2016-12-27] MEDS: RT-ALBUTEROL/IPRATROPIUM 3 ML (DUONEB) VIAL INH SCH ×7 (02:02→22:11)
[2016-12-27 05:40] LABS: BASOPHILS % (AUTO) 0 % (0-10); EOSINOPHILS % (AUTO) 0 % (0-10); LYMPHOCYTES # (AUTO) 2.6 X 10^3 (1.0-4.0); LYMPHOCYTES % (AUTO) 15 % (12-44); MEAN CORPUSCULAR HEMOGLOBIN 30 PG (25-34); MEAN CORPUSCULAR HGB CONC 32 G/DL (32-36); MEAN CORPUSCULAR VOLUME 93 FL (80-99); MEAN PLATELET VOLUME 9.8 FL (7.4-10.4); MONOCYTES # (AUTO) 1.9 X 10^3 (0.0-1.0); MONOCYTES % (AUTO) 11 % (0-12); NEUTROPHILS # (AUTO) 12.4 X 10^3 (1.8-7.8); NEUTROPHILS % (AUTO) 73 % (42-75); PLATELET COUNT 288 10^3/uL (130-400); RED BLOOD COUNT 3.23 10^6/uL (4.35-5.85); WHITE BLOOD COUNT 16.8 10^3/uL (4.3-11.0)
[2016-12-27 05:58] LABS: ANION GAP 15 MMOL/L (5-14); BLOOD UREA NITROGEN 11 MG/DL (7-18); BUN/CREATININE RATIO 19 (0-20); CALCIUM 9.2 MG/DL (8.5-10.1); CARBON DIOXIDE 22 MMOL/L (21-32); CHLORIDE 102 MMOL/L (98-107); CREATININE SERUM 0.59 MG/DL (0.60-1.30); GFR ESTIMATED > 60; GLUCOSE 100 MG/DL (70-105); HEMOLYSIS 7 (-100-29); ICTERUS 2.2 (-100-1.9); LIPEMIA 2 (-100-49); POTASSIUM 3.2 MMOL/L (3.6-5.0); SODIUM 139 MMOL/L (135-145)
[2016-12-27] MEDS ORDERED: KCL 20 MEQ TAB (K-DUR) PO ONE (06:15)
[2016-12-27] MEDS: MULTIVIT W/MINERALS TAB (THERAGRAN M) PO SCH (06:30)
[2016-12-27] MEDS: ASPIRIN E.C. 81 MG (ECOTRIN) TAB PO SCH (08:02)
[2016-12-27] MEDS: ENOXAPARIN 30 MG/0.3 ML (LOVENOX) SYR SC SCH ×2 (08:02→21:02)
[2016-12-27] MEDS: oxyCODONE/APAP 5/325MG (PERCOCET 5) TABLET PO PRN ×2 (08:03→13:20)
[2016-12-27] MEDS: SENNA W/DOCUSATE (SENOKOT S) TABLET PO SCH ×2 (08:10→21:04)
--- NOTE | 2016-12-27 09:42 | Progress Note-Standard ---
Standard Progress Note Progress Notes/Assess & Plan Date Seen by Provider: Dec 27, 2016 Time Seen by Provider: 09:35 Progress/Assessment & Plan Post op check patient comfortable spinal still in effect Radiographs--HW well positioned. No fractures RLE--PT pulse at baseline with brisk cap refill intact DF and PF of toes s/p RTKA mobilize when able Final Diagnosis Feeling better Vital Signs Date Time Temp Pulse Resp B/P (MAP) Pulse Ox O2 Delivery O2 Flow Rate FiO2 12/27/16 08:58 95 Nasal Cannula 2.00 12/27/16 08:22 97.3 96 22 158/70 95 Nasal Cannula 2.00 12/27/16 04:35 98.6 98 16 136/65 95 Nasal Cannula 2.00 12/27/16 02:03 96 Nasal Cannula 2.00 12/27/16 00:10 98.3 102 24 168/74 96 Nasal Cannula 2.00 12/26/16 22:09 95 Nasal Cannula 2.00 12/26/16 22:00 97.5 12/26/16 20:15 Nasal Cannula 2.00 12/26/16 19:30 99.5 103 20 157/71 94 Nasal Cannula 2.00 12/26/16 18:49 95 Nasal Cannula 2.00 12/26/16 18:49 95 12/26/16 16:55 98.9 101 20 140/81 95 Nasal Cannula 2.00 12/26/16 12:00 97.8 94 24 159/90 96 Nasal Cannula 2.00 I & O 12/27/16 07:00 Intake Total 2880 ml Balance 2880 ml Laboratory Tests Test 12/27/16 05:23 Range/Units White Blood Count 16.8 H 4.3-11.0 10^3/uL Red Blood Count 3.23 L 4.35-5.85 10^6/uL Hemoglobin 9.7 L 11.5-16.0 G/DL Hematocrit 30 L 35-52 % Mean Corpuscular Volume 93 80-99 FL Mean Corpuscular Hemoglobin 30 25-34 PG Mean Corpuscular Hemoglobin Concent 32 32-36 G/DL Red Cell Distribution Width 14.0 10.0-14.5 % Platelet Count 288 130-400 10^3/uL Mean Platelet Volume 9.8 7.4-10.4 FL Neutrophils (%) (Auto) 73 42-75 % Lymphocytes (%) (Auto) 15 12-44 % Monocytes (%) (Auto) 11 0-12 % Eosinophils (%) (Auto) 0 0-10 % Basophils (%) (Auto) 0 0-10 % Neutrophils # (Auto) 12.4 H 1.8-7.8 X 10^3 Lymphocytes # (Auto) 2.6 1.0-4.0 X 10^3 Monocytes # (Auto) 1.9 H 0.0-1.0 X 10^3 Eosinophils # (Auto) 0.0 0.0-0.3 10^3/uL Basophils # (Auto) 0.0 0.0-0.1 10^3/uL Sodium Level 139 135-145 MMOL/L Potassium Level 3.2 L 3.6-5.0 MMOL/L Chloride Level 102 98-107 MMOL/L Carbon Dioxide Level 22 21-32 MMOL/L Anion Gap 15 H 5-14 MMOL/L Blood Urea Nitrogen 11 7-18 MG/DL Creatinine 0.59 L 0.60-1.30 MG/DL Estimat Glomerular Filtration Rate > 60 BUN/Creatinine Ratio 19 0-20 Glucose Level 100 70-105 MG/DL Calcium Level 9.2 8.5-10.1 MG/DL RLE--dressing intact. No calf tenderness. Neg SLR s/p RTKA reinforced to pt that she needs to work on keeping the knee extended while in bed o/w she will end up with flexion contracture SABINO MADERA MD Dec 27, 2016 09:42
--- NOTE | 2016-12-27 10:13 | Progress Note (SOAP) ---
Subjective Subjective/Events-last exam Lona answers questions with few words, but denies any concerns and states "okay " when asked how she is feeling. Her blood pressure and heart rate have both been slightly elevated in the last 24 hours. Review of Systems Date Seen by Provider: Dec 27, 2016 Time Seen by Provider: 07:25 Objective Exam Last Set of Vital Signs Vital Signs Date Time Temp Pulse Resp B/P (MAP) Pulse Ox O2 Delivery O2 Flow Rate FiO2 12/27/16 08:58 95 Nasal Cannula 2.00 12/27/16 08:22 97.3 96 22 158/70 Capillary Refill : I&O Intake and Output 12/27/16 00:00 Intake Total 3580 ml Balance 3580 ml Intake Oral 1080 ml IV Total 2500 ml # Voids 6 # Bowel Movements 1 General: Alert, No Acute Distress Lungs: Other (ronchi) Heart: Regular Rate, No Murmurs Neuro: Other (answers yes and no questions, has some difficulty with word finding) Results/Procedures Lab Laboratory Tests 12/27/16 05:23: White Blood Count 16.8H, Red Blood Count 3.23L, Hemoglobin 9.7L, Hematocrit 30L , Mean Corpuscular Volume 93, Mean Corpuscular Hemoglobin 30, Mean Corpuscular Hemoglobin Concent 32, Red Cell Distribution Width 14.0, Platelet Count 288, Mean Platelet Volume 9.8, Neutrophils (%) (Auto) 73, Lymphocytes (%) (Auto) 15, Monocytes (%) (Auto) 11, Eosinophils (%) (Auto) 0, Basophils (%) (Auto) 0, Neutrophils # (Auto) 12.4H, Lymphocytes # (Auto) 2.6, Monocytes # (Auto) 1.9H, Eosinophils # (Auto) 0.0, Basophils # (Auto) 0.0, Sodium Level 139, Potassium Level 3.2L, Chloride Level 102, Carbon Dioxide Level 22, Anion Gap 15H, Blood Urea Nitrogen 11, Creatinine 0.59L, Estimat Glomerular Filtration Rate > 60, BUN /Creatinine Ratio 19, Glucose Level 100, Calcium Level 9.2 Assessment/Plan Assessment/Plan Plan R TKA - managed by Dr Flores's team - would advise that we be somewhat cautious in narcotics use. 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 In addition, narcotics can alter her sensorium and make episodes such as today more frequent/severe. 12/26 - off [employer]. recommend we concentrate on PO pain meds for now. DEMENTIA HISTORY OF STROKE WITH RESULTANT APHASIA - patient appears to be doing well as of now - recommend that family stay with her as much as possible to reassure her and also help us communicate with her 12/26 - improved today. continue to balance pain control with potential side effects of confusion from narcotics. 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 Restart verapamil with mild elevation in BP and heart rate (on 120 mg SR daily at home, appears on 100 mg SR available on formulary, will start with this dose for now and monitor) DVT PROPHYLAXIS - lovenox 30 mg BID Diagnosis/Problems: Clinical Quality Measures DVT/VTE Risk/Contraindication: Risk Factor Score Per Nursin RFS Level Per Nursing on Admit: 4+=Very High SATNAM MIKE MD Dec 27, 2016 10:13 am
[2016-12-27] MEDS ORDERED: VERAPAMIL PM 100 MG (VERELAN PM) CAP.SR.24H PO SCH (10:15)
--- NOTE | 2016-12-27 10:37 | Physical Therapy Daily Note ---
PT Daily Note-Current Subjective Pt in chair, just finished bathing. Requesting to return to bed. Mental Status Patient Orientation: Person, Non-Verbal/Aphasic Attachments: Oxygen, Polar Pack Transfers Functional [place] Measure 0=Not Assessed/NA 4=Minimal Assistance 1=Total Assistance 5=Supervision or Setup 2=Maximal Assistance 6=Modified [place] 3=Moderate Assistance 7=Complete IndependenceIRFPAI Quality Coding Scale 6 Independent with activity with or without an assistive device 5 Patient requires set up or clean up by helper. Patient completes activity by themselves 4 Supervision or touching assist (CGA). [place] provide cues , steadying assist 3 The helper provides less than half the effort to complete the activity 2 The helper provides more than half the effort to complete the activity 1 Dependent. The helper does all the effort to complete an activity 7 Patient refused to complete or attempt activity 9 The patient did not perform the activity before the current illness or injury 88 Not attempted due to Medical conditions or safety concerns Supine to/from Sit: 5 Sit to/from Stand: 4 Weight Bearing Weight Bearing Restriction: Weight Bearing/Tolerated Location Restriction: R LE Gait Training Gait (FIM): 1 Distance (FIM): 1=up to 49 ft Distance: 20 Gait Level of Assist: 5 Gait Persons Needed: 1 Gait Assistive Device: FWW Pt ambulates with slow, step-to antalgic gait. Ambulates with (R) knee in flexion despite max skilled VCS. No LOB, very SOA with limited activity. Exercises Supine Ex: Ankle pumps, Quad Set, Heel Slides Supine Reps: 20 Treatments Gait training, supine ex. Pt in bed with O2 in situ. CPM not applied as breakfast tray arrived upon conclusion of therapy. Discussed with PCT that Pt was to be placed in CPM after finishing tray; agreeable. Assessment Current Status: Poor Progress Pt self-limits ROM, especially extension. Progressing (I) with functional mobility but with limited ROM (R) knee. PT Fci Goals Anode Adjuster Goals PT Anode Adjuster Goals Time Frame: Dec 31, 2016 Transfers (B,C,W/C) (FIM): 5 Gait (FIM): 2 Distance: 50' Gait Level of Assist: 4 Gait Assistive Device: FWW PT Plan Problem List Problem List: Activity Tolerance, Functional Strength, Safety, Balance, Gait, Transfer, Bed Mobility, ROM Treatment/Plan Treatment Plan: Continue Plan of Care Treatment Plan: Bed Mobility, Education, Functional Activity Clau, Functional Strength, Gait, Safety, Therapeutic Exercise, Transfers Treatment Duration: Dec 31, 2016 Visits Per Week: 10-11 Minutes/Day (M-F): 15-30 Minutes/Day (Sat/Brooks): 15-30 Pt/Family Agrees w/Plan: Yes Safety Risks/Education Patient Education: Gait Training, Correct Positioning Teaching Recipient: Patient, Family Teaching Methods: Discussion Response to Teaching: Reinforcement Needed Educated Pt and family regarding importance of progressing extension and flexion ROM of (R) knee to normalize gait, improve transfers, and decrease pain. Pt verbalizes understanding but does not follow VCS for knee extension with gait. Discharge Recommendations Therapy D/C Recommendations: Long Term (TCU/NH) Time/GCodes Time In: 0949 Time Out: 1015 Total Billed Treatment Time: 26 Total Billed Treatment 1, GT x 16', Ex x 10' G Codes Necessary: ANDRA Mcmillan DPYoav Dec 27, 2016 10:37
[2016-12-27] MEDS: morphine INJ 4 MG/ML 1 ML (VIAL/SYRINGE) IVP PRN (15:06)
[2016-12-27] MEDS ORDERED: VERAPAMIL PM 100 MG (VERELAN PM) CAP.SR.24H PO ONE (15:15)
[2016-12-27] MEDS ORDERED: meTOprolol TARTRATE 50 MG (LOPRESSOR) TAB PO ONE (18:00)
[2016-12-27 18:47] LABS: BASOPHILS % (AUTO) 0 % (0-10); EOSINOPHILS % (AUTO) 0 % (0-10); LYMPHOCYTES # (AUTO) 3.5 X 10^3 (1.0-4.0); LYMPHOCYTES % (AUTO) 20 % (12-44); MEAN CORPUSCULAR HEMOGLOBIN 30 PG (25-34); MEAN CORPUSCULAR HGB CONC 33 G/DL (32-36); MEAN CORPUSCULAR VOLUME 93 FL (80-99); MEAN PLATELET VOLUME 9.9 FL (7.4-10.4); MONOCYTES # (AUTO) 2.1 X 10^3 (0.0-1.0); MONOCYTES % (AUTO) 12 % (0-12); NEUTROPHILS # (AUTO) 12.1 X 10^3 (1.8-7.8); NEUTROPHILS % (AUTO) 68 % (42-75); PLATELET COUNT 328 10^3/uL (130-400); RED BLOOD COUNT 3.46 10^6/uL (4.35-5.85); RED CELL DISTRIBUTION WIDTH 14.2 % (10.0-14.5); WHITE BLOOD COUNT 17.7 10^3/uL (4.3-11.0)
[2016-12-27] MEDS ORDERED: meTOprolol 5 MG/5 ML (LOPRESSOR) VIAL IV ONE (19:00)
[2016-12-27 19:02] LABS: ALANINE AMINOTRANSFERASE 77 U/L (0-55); ALBUMIN 3.5 GM/DL (3.2-4.5); ANION GAP 17 MMOL/L (5-14); ASPARTATE AMINO TRANSFERASE 40 U/L (5-34); BLOOD UREA NITROGEN 14 MG/DL (7-18); BUN/CREATININE RATIO 21 (0-20); CALCIUM 9.4 MG/DL (8.5-10.1); CARBON DIOXIDE 19 MMOL/L (21-32); CHLORIDE 103 MMOL/L (98-107); CREATININE SERUM 0.68 MG/DL (0.60-1.30); GFR ESTIMATED > 60; GLUCOSE 145 MG/DL (70-105); HEMOLYSIS 5 (-100-29); ICTERUS 1.9 (-100-1.9); LIPEMIA -2 (-100-49); POTASSIUM 3.6 MMOL/L (3.6-5.0); SODIUM 139 MMOL/L (135-145); TOTAL PROTEIN 7.6 GM/DL (6.4-8.2)
[2016-12-27 19:08] LABS: TROPONIN I < 0.30 NG/ML (<0.30)
[2016-12-27 19:10] LABS: HYPOCHROMASIA SLIGHT; LYMPHOCYTES % (MANUAL) 18 %; NEUTROPHILS % (MANUAL) 77 %
[2016-12-27] MEDS: VERAPAMIL PM 100 MG (VERELAN PM) CAP.SR.24H PO SCH ×2 (21:02→21:11)
[2016-12-28] VITALS: BP 136/76
[2016-12-28] MEDS: RT-ALBUTEROL/IPRATROPIUM 3 ML (DUONEB) VIAL INH SCH ×6 (02:24→21:53)
[2016-12-28 04:00] VITALS: BP 161/83
[2016-12-28 06:02] LABS: BASOPHILS % (AUTO) 0 % (0-10); EOSINOPHILS % (AUTO) 0 % (0-10); LYMPHOCYTES # (AUTO) 2.9 X 10^3 (1.0-4.0); LYMPHOCYTES % (AUTO) 18 % (12-44); MEAN CORPUSCULAR HEMOGLOBIN 31 PG (25-34); MEAN CORPUSCULAR HGB CONC 33 G/DL (32-36); MEAN CORPUSCULAR VOLUME 93 FL (80-99); MEAN PLATELET VOLUME 9.9 FL (7.4-10.4); MONOCYTES # (AUTO) 1.6 X 10^3 (0.0-1.0); MONOCYTES % (AUTO) 10 % (0-12); NEUTROPHILS # (AUTO) 11.3 X 10^3 (1.8-7.8); NEUTROPHILS % (AUTO) 71 % (42-75); PLATELET COUNT 308 10^3/uL (130-400); RED BLOOD COUNT 3.34 10^6/uL (4.35-5.85); RED CELL DISTRIBUTION WIDTH 14.1 % (10.0-14.5); WHITE BLOOD COUNT 15.8 10^3/uL (4.3-11.0)
[2016-12-28] MEDS: MULTIVIT W/MINERALS TAB (THERAGRAN M) PO SCH (06:07)
[2016-12-28 06:10] LABS: ANION GAP 15 MMOL/L (5-14); BLOOD UREA NITROGEN 15 MG/DL (7-18); BUN/CREATININE RATIO 25 (0-20); CALCIUM 9.4 MG/DL (8.5-10.1); CARBON DIOXIDE 21 MMOL/L (21-32); CHLORIDE 103 MMOL/L (98-107); GFR ESTIMATED > 60; GLUCOSE 96 MG/DL (70-105); HEMOLYSIS 8 (-100-29); ICTERUS 1.8 (-100-1.9); LIPEMIA -1 (-100-49); POTASSIUM 3.3 MMOL/L (3.6-5.0); SODIUM 139 MMOL/L (135-145)
[2016-12-28 08:34] VITALS: BP 142/78
[2016-12-28] MEDS: VERAPAMIL PM 100 MG (VERELAN PM) CAP.SR.24H PO SCH (08:44)
[2016-12-28] MEDS: ASPIRIN E.C. 81 MG (ECOTRIN) TAB PO SCH (08:44)
[2016-12-28] MEDS: oxyCODONE/APAP 5/325MG (PERCOCET 5) TABLET PO PRN ×3 (08:44→20:01)
[2016-12-28] MEDS: ENOXAPARIN 30 MG/0.3 ML (LOVENOX) SYR SC SCH ×2 (08:44→20:01)
[2016-12-28] MEDS: SENNA W/DOCUSATE (SENOKOT S) TABLET PO SCH ×2 (08:44→21:00)
[2016-12-28] MEDS ORDERED: KCL 20 MEQ TAB (K-DUR) PO ONE (09:30)
--- NOTE | 2016-12-28 10:43 | Progress Note-Standard ---
Standard Progress Note Progress Notes/Assess & Plan Date Seen by Provider: Dec 28, 2016 Time Seen by Provider: 10:42 Progress/Assessment & Plan Post op check patient comfortable spinal still in effect Radiographs--HW well positioned. No fractures RLE--PT pulse at baseline with brisk cap refill intact DF and PF of toes s/p RTKA mobilize when able Final Diagnosis No complaints Vital Signs Date Time Temp Pulse Resp B/P (MAP) Pulse Ox O2 Delivery O2 Flow Rate FiO2 12/28/16 08:34 98.3 90 20 142/78 96 Nasal Cannula 1.50 12/28/16 07:00 95 12/28/16 06:52 95 Room Air 12/28/16 04:00 98.1 87 20 161/83 98 Nasal Cannula 1.50 12/28/16 02:25 82 Room Air 12/28/16 01:00 90 12/28/16 00:00 97.8 92 16 136/76 94 Nasal Cannula 1.50 12/27/16 22:12 91 Room Air 12/27/16 20:45 98.8 85 20 132/78 96 Nasal Cannula 1.50 12/27/16 20:00 Nasal Cannula 2.00 12/27/16 19:20 98 Nasal Cannula 1.50 12/27/16 19:09 91 117/77 12/27/16 18:28 175 12/27/16 16:45 97.8 173 18 122/75 97 Nasal Cannula 2.00 12/27/16 15:05 95 Nasal Cannula 2.00 12/27/16 12:19 95.0 183 18 110/63 97 Nasal Cannula 2.00 I & O 12/28/16 07:00 Intake Total 1150 ml Balance 1150 ml Laboratory Tests Test 12/27/16 18:35 12/28/16 05:47 Range/Units White Blood Count 17.7 H 15.8 H 4.3-11.0 10^3/uL Red Blood Count 3.46 L 3.34 L 4.35-5.85 10^6/uL Hemoglobin 10.5 L 10.2 L 11.5-16.0 G/DL Hematocrit 32 L 31 L 35-52 % Mean Corpuscular Volume 93 93 80-99 FL Mean Corpuscular Hemoglobin 30 31 25-34 PG Mean Corpuscular Hemoglobin Concent 33 33 32-36 G/DL Red Cell Distribution Width 14.2 14.1 10.0-14.5 % Platelet Count 328 308 130-400 10^3/uL Mean Platelet Volume 9.9 9.9 7.4-10.4 FL Neutrophils (%) (Auto) 68 71 42-75 % Lymphocytes (%) (Auto) 20 18 12-44 % Monocytes (%) (Auto) 12 10 0-12 % Eosinophils (%) (Auto) 0 0 0-10 % Basophils (%) (Auto) 0 0 0-10 % Neutrophils # (Auto) 12.1 H 11.3 H 1.8-7.8 X 10^3 Lymphocytes # (Auto) 3.5 2.9 1.0-4.0 X 10^3 Monocytes # (Auto) 2.1 H 1.6 H 0.0-1.0 X 10^3 Eosinophils # (Auto) 0.0 0.0 0.0-0.3 10^3/uL Basophils # (Auto) 0.0 0.0 0.0-0.1 10^3/uL Neutrophils % (Manual) 77 % Lymphocytes % (Manual) 18 % Monocytes % (Manual) 5 % Smudge Cells SLIGHT Hypochromasia SLIGHT Blood Morphology Comment NORMAL Sodium Level 139 139 135-145 MMOL/L Potassium Level 3.6 3.3 L 3.6-5.0 MMOL/L Chloride Level 103 103 98-107 MMOL/L Carbon Dioxide Level 19 L 21 21-32 MMOL/L Anion Gap 17 H 15 H 5-14 MMOL/L Blood Urea Nitrogen 14 15 7-18 MG/DL Creatinine 0.68 0.60 0.60-1.30 MG/DL Estimat Glomerular Filtration Rate > 60 > 60 BUN/Creatinine Ratio 21 H 25 H 0-20 Glucose Level 145 H 96 70-105 MG/DL Calcium Level 9.4 9.4 8.5-10.1 MG/DL Total Bilirubin 2.0 H 0.1-1.0 MG/DL Aspartate Amino Transf (AST/SGOT) 40 H 5-34 U/L Alanine Aminotransferase (ALT/SGPT) 77 H 0-55 U/L Alkaline Phosphatase 110 40-136 U/L Troponin I < 0.30 <0.30 NG/ML Total Protein 7.6 6.4-8.2 GM/DL Albumin 3.5 3.2-4.5 GM/DL RLE--No calf tenderness. Neg Carmela's. Poor extension, improved flexion s/p RTKA PT OT' To NH tomorrow SABINO MADERA MD Dec 28, 2016 10:43
[2016-12-28 11:22] VITALS: BP 150/80
--- NOTE | 2016-12-28 11:35 | Physical Therapy Daily Note ---
PT Daily Note-Current Subjective Pt. up in chair, agreeable to therapy. Rates pain 10/10 in the R knee, she isn' t sure if she has had pain medicine recently and nursing notified. Mental Status Patient Orientation: Person, Situation Attachments: Polar Pack Transfers Functional [place] Measure 0=Not Assessed/NA 4=Minimal Assistance 1=Total Assistance 5=Supervision or Setup 2=Maximal Assistance 6=Modified [place] 3=Moderate Assistance 7=Complete IndependenceIRFPAI Quality Coding Scale 6 Independent with activity with or without an assistive device 5 Patient requires set up or clean up by helper. Patient completes activity by themselves 4 Supervision or touching assist (CGA). [place] provide cues , steadying assist 3 The helper provides less than half the effort to complete the activity 2 The helper provides more than half the effort to complete the activity 1 Dependent. The helper does all the effort to complete an activity 7 Patient refused to complete or attempt activity 9 The patient did not perform the activity before the current illness or injury 88 Not attempted due to Medical conditions or safety concerns Transfers (B, C, W/C) (FIM): 4 Scootin Supine to/from Sit: 4 Sit to/from Stand: 4 Gait Training Gait (FIM): 1 Distance (FIM): 1=up to 49 ft Distance: 20 ft Gait Level of Assist: 4 Gait Persons Needed: 1 Gait Assistive Device: FWW Pt. has increased SOA during ambulation, unable to heel strike on R due to significant knee extension limitations Exercises Supine Ex: Quad Set, Short Arc Quads, Straight leg raise Supine Reps: 15 Seated Therapy Exercises: Ankle pumps, Long arc quads, Hip flexion, Hamstring Curls Seated Reps: 15 Treatments exercise, gait, CPM placement Assessment Current Status: Good Progress, Fair Progress Pt. is CGA with all transfers and gait. She fatigues very quickly with gait and has decreased heel strike. Pt. continues to have significant limitations with knee extension but does fire the quad well. CPM placed R knee with polar care, call light in reach and all needs met post session. PT Fpc Goals Reclaimer Goals PT Fpc Goals Time Frame: Dec 31, 2016 Transfers (B,C,W/C) (FIM): 5 Gait (FIM): 2 Distance: 50' Gait Level of Assist: 4 Gait Assistive Device: FWW PT Plan Treatment/Plan Treatment Plan: Continue Plan of Care Treatment Plan: Bed Mobility, Education, Functional Activity Clau, Functional Strength, Gait, Safety, Therapeutic Exercise, Transfers Treatment Duration: Dec 31, 2016 Visits Per Week: 10-11 Minutes/Day (M-F): 15-30 Minutes/Day (Sat/Brooks): 15-30 Time/GCodes Time In: 1050 Time Out: 1125 Total Billed Treatment Time: 30 Total Billed Treatment 1, Ex 20', GT 10', (FA 5') MAG RAMIREZ PT Dec 28, 2016 11:34
--- NOTE | 2016-12-28 13:53 | Progress Note (SOAP) ---
Subjective Subjective/Events-last exam Feeling well. Had an episode of SVT yesterday evening before receiving home verapamil, resolved with her verapamil and one PO dose of metoprolol. Heart rate normal this morning. She had no symptoms throughout the event and blood pressure remained normal. Review of Systems Date Seen by Provider: Dec 28, 2016 Time Seen by Provider: 09:50 Objective Exam Last Set of Vital Signs Vital Signs Date Time Temp Pulse Resp B/P (MAP) Pulse Ox O2 Delivery O2 Flow Rate FiO2 12/28/16 11:22 98.2 86 20 150/80 96 Nasal Cannula 1.50 Capillary Refill : I&O Intake and Output 12/28/16 00:00 Intake Total 1350 ml Balance 1350 ml Intake Oral 1350 ml # Voids 2 # Bowel Movements 3 General: Alert, No Acute Distress Lungs: Clear to Auscultation, Normal Air Movement Heart: Regular Rate, No Murmurs Neuro: Other (slow speech) Psych/Mental Status: Mood NL Results/Procedures Lab Laboratory Tests 12/27/16 18:35: White Blood Count 17.7H, Red Blood Count 3.46L, Hemoglobin 10.5L, Hematocrit 32L , Mean Corpuscular Volume 93, Mean Corpuscular Hemoglobin 30, Mean Corpuscular Hemoglobin Concent 33, Red Cell Distribution Width 14.2, Platelet Count 328, Mean Platelet Volume 9.9, Neutrophils (%) (Auto) 68, Lymphocytes (%) (Auto) 20, Monocytes (%) (Auto) 12, Eosinophils (%) (Auto) 0, Basophils (%) (Auto) 0, Neutrophils # (Auto) 12.1H, Lymphocytes # (Auto) 3.5, Monocytes # (Auto) 2.1H, Eosinophils # (Auto) 0.0, Basophils # (Auto) 0.0, Neutrophils % (Manual) 77, Lymphocytes % (Manual) 18, Monocytes % (Manual) 5, Smudge Cells SLIGHT, Hypochromasia SLIGHT, Blood Morphology Comment NORMAL, Sodium Level 139, Potassium Level 3.6, Chloride Level 103, Carbon Dioxide Level 19L, Anion Gap 17H , Blood Urea Nitrogen 14, Creatinine 0.68, Estimat Glomerular Filtration Rate > 60, BUN/Creatinine Ratio 21H, Glucose Level 145H, Calcium Level 9.4, Total Bilirubin 2.0H, Aspartate Amino Transf (AST/SGOT) 40H, Alanine Aminotransferase (ALT/SGPT) 77H, Alkaline Phosphatase 110, Troponin I < 0.30, Total Protein 7.6, Albumin 3.5 12/28/16 05:47: White Blood Count 15.8H, Red Blood Count 3.34L, Hemoglobin 10.2L, Hematocrit 31L , Mean Corpuscular Volume 93, Mean Corpuscular Hemoglobin 31, Mean Corpuscular Hemoglobin Concent 33, Red Cell Distribution Width 14.1, Platelet Count 308, Mean Platelet Volume 9.9, Neutrophils (%) (Auto) 71, Lymphocytes (%) (Auto) 18, Monocytes (%) (Auto) 10, Eosinophils (%) (Auto) 0, Basophils (%) (Auto) 0, Neutrophils # (Auto) 11.3H, Lymphocytes # (Auto) 2.9, Monocytes # (Auto) 1.6H, Eosinophils # (Auto) 0.0, Basophils # (Auto) 0.0, Sodium Level 139, Potassium Level 3.3L, Chloride Level 103, Carbon Dioxide Level 21, Anion Gap 15H, Blood Urea Nitrogen 15, Creatinine 0.60, Estimat Glomerular Filtration Rate > 60, BUN/ Creatinine Ratio 25H, Glucose Level 96, Calcium Level 9.4 Microbiology 12/28/16 C. difficile GD Antigen & Toxins - Final, Complete Assessment/Plan Assessment/Plan Plan R TKA - managed by Dr Flores's team - would advise that we be somewhat cautious in narcotics use. 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 In addition, narcotics can alter her sensorium and make episodes such as today more frequent/severe. 12/26 - off [employer]. recommend we concentrate on PO pain meds for now. DEMENTIA HISTORY OF STROKE WITH RESULTANT APHASIA - patient appears to be doing well as of now - recommend that family stay with her as much as possible to reassure her and also help us communicate with her 12/26 - improved today. continue to balance pain control with potential side effects of confusion from narcotics. 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 Restart verapamil with mild elevation in BP and heart rate (on 120 mg SR daily at home, appears on 100 mg SR available on formulary, will start with this dose for now and monitor) 12/28 Had SVT yesterday evening, resolved with after verapamil and one dose of PO metoprolol, will monitor for recurrence and monitor electrolyte status DVT PROPHYLAXIS - lovenox 30 mg BID Diagnosis/Problems: Clinical Quality Measures DVT/VTE Risk/Contraindication: Risk Factor Score Per Nursin RFS Level Per Nursing on Admit: 4+=Very High SATNAM MIKE MD Dec 28, 2016 1:53 pm
[2016-12-28 16:00] VITALS: BP 150/84
--- NOTE | 2016-12-28 16:24 | DISCHARGE SUMMARY ---
DATE OF SERVICE: DIAGNOSES: 1. Right knee primary osteoarthritis. 2. Emphysema. 3. Peripheral vascular disease. 4. Tobacco use. 5. Hyperlipidemia. 6. Degenerative disc disease. 7. Pancreatitis. 8. Arterial insufficiency. 9. Anemia. 10. Anxiety disorder. 11. Atrial fibrillation. 12. COPD. 13. Cerebrovascular accident. 14. Depression. 15. Skin cancer. 16. Dysphagia. 17. Chronic pain. 18. Edema. 19. Hypertension. 20. Insomnia. 21. Reflux. 22. Allergic rhinitis. PROCEDURES: Right total knee arthroplasty. SUMMARY: The patient is a 66-year- old female with severe right knee osteoarthritis. She had multiple medical problems as well. She tried extensive conservative measures without relief of her symptoms and due to functional impairment, the patient had to proceed with total knee arthroplasty, which she underwent without complication. Postoperatively, she did well. At the time of discharge, her wound was clean and dry. She had no calf tenderness and negative Homans sign. She was ambulating with assist device. She was tolerating pain with oral pain medication. CONDITION ON DISCHARGE: Good. DISCHARGE DISPOSITION: [facility] and occupational therapy. FOLLOWUP: In three weeks. ACTIVITY: Weightbearing as tolerated with walker. DISCHARGED MEDICATIONS: Home medications, aspirin and Percocet. Job ID: [id number] DocumentID: [id number] Dictated Date: 12/28/2016 10:46:03 Net Programmer Date: 12/28/2016 11:16:56 Dictated By: SABINO MADERA MD
[2016-12-28 19:45] VITALS: BP 173/83
[2016-12-29] VITALS: BP 139/63
[2016-12-29] MEDS: RT-ALBUTEROL/IPRATROPIUM 3 ML (DUONEB) VIAL INH SCH ×3 (01:53→10:44)
[2016-12-29 04:00] VITALS: BP 133/79
[2016-12-29] MEDS: MULTIVIT W/MINERALS TAB (THERAGRAN M) PO SCH (05:38)
[2016-12-29] MEDS: oxyCODONE/APAP 5/325MG (PERCOCET 5) TABLET PO PRN ×3 (05:38→11:35)
[2016-12-29 07:38] LABS: BASOPHILS # (AUTO) 0.1 10^3/uL (0.0-0.1); BASOPHILS % (AUTO) 0 % (0-10); EOSINOPHILS # (AUTO) 0.1 10^3/uL (0.0-0.3); EOSINOPHILS % (AUTO) 0 % (0-10); LYMPHOCYTES # (AUTO) 2.7 X 10^3 (1.0-4.0); LYMPHOCYTES % (AUTO) 21 % (12-44); MEAN CORPUSCULAR HEMOGLOBIN 30 PG (25-34); MEAN CORPUSCULAR HGB CONC 33 G/DL (32-36); MEAN CORPUSCULAR VOLUME 93 FL (80-99); MEAN PLATELET VOLUME 9.7 FL (7.4-10.4); MONOCYTES # (AUTO) 1.4 X 10^3 (0.0-1.0); MONOCYTES % (AUTO) 10 % (0-12); NEUTROPHILS % (AUTO) 68 % (42-75); PLATELET COUNT 382 10^3/uL (130-400); RED BLOOD COUNT 3.47 10^6/uL (4.35-5.85); RED CELL DISTRIBUTION WIDTH 14.3 % (10.0-14.5); WHITE BLOOD COUNT 13.2 10^3/uL (4.3-11.0)
--- NOTE | 2016-12-29 07:42 | Progress Note-Standard ---
Standard Progress Note Progress Notes/Assess & Plan Date Seen by Provider: Dec 29, 2016 Time Seen by Provider: 07:40 Progress/Assessment & Plan Post op check patient comfortable spinal still in effect Radiographs--HW well positioned. No fractures RLE--PT pulse at baseline with brisk cap refill intact DF and PF of toes s/p RTKA mobilize when able Final Diagnosis No complaints Vital Signs Date Time Temp Pulse Resp B/P (MAP) Pulse Ox O2 Delivery O2 Flow Rate FiO2 12/29/16 07:28 95 Nasal Cannula 1.50 12/29/16 04:00 97.9 90 16 133/79 97 Nasal Cannula 1.50 12/29/16 01:53 97 Nasal Cannula 1.50 12/29/16 01:00 91 12/29/16 00:00 96.6 90 20 139/63 99 Nasal Cannula 1.50 12/28/16 21:54 97 Nasal Cannula 1.50 12/28/16 20:00 Nasal Cannula 2.00 12/28/16 19:45 98.9 91 20 173/83 97 Nasal Cannula 1.50 12/28/16 19:17 96 Room Air 12/28/16 19:00 86 12/28/16 16:00 99.5 92 24 150/84 98 Nasal Cannula 1.50 12/28/16 14:54 97 Nasal Cannula 1.50 12/28/16 13:00 89 12/28/16 11:22 98.2 86 20 150/80 96 Nasal Cannula 1.50 12/28/16 10:53 94 Room Air 12/28/16 08:34 98.3 90 20 142/78 96 Nasal Cannula 1.50 12/28/16 08:00 Nasal Cannula 2.00 I & O 12/29/16 07:00 Intake Total 1380 ml Balance 1380 ml Laboratory Tests Test 12/29/16 07:28 Range/Units RLE--incision clean. No calf tenderness. Improved quad control s/p RTKA doing well DC to SABINO CISSE MD Dec 29, 2016 07:42
[2016-12-29 07:55] LABS: ALANINE AMINOTRANSFERASE 55 U/L (0-55); ALBUMIN 3.5 GM/DL (3.2-4.5); ANION GAP 12 MMOL/L (5-14); ASPARTATE AMINO TRANSFERASE 27 U/L (5-34); BILIRUBIN,TOTAL 1.7 MG/DL (0.1-1.0); BLOOD UREA NITROGEN 13 MG/DL (7-18); BUN/CREATININE RATIO 22 (0-20); CALCIUM 9.1 MG/DL (8.5-10.1); CARBON DIOXIDE 25 MMOL/L (21-32); CHLORIDE 103 MMOL/L (98-107); GFR ESTIMATED > 60; GLUCOSE 84 MG/DL (70-105); HEMOLYSIS 7 (-100-29); ICTERUS 1.7 (-100-1.9); LIPEMIA -1 (-100-49); POTASSIUM 3.1 MMOL/L (3.6-5.0); SODIUM 140 MMOL/L (135-145); TOTAL PROTEIN 7.5 GM/DL (6.4-8.2)
[2016-12-29 08:00] VITALS: BP_SYST 152; BP_SYST 168; BP_DIAS 67; BP_DIAS 74
[2016-12-29] MEDS: ASPIRIN E.C. 81 MG (ECOTRIN) TAB PO SCH (08:02)
[2016-12-29] MEDS: ENOXAPARIN 30 MG/0.3 ML (LOVENOX) SYR SC SCH (08:02)
[2016-12-29] MEDS: VERAPAMIL PM 100 MG (VERELAN PM) CAP.SR.24H PO SCH (08:02)
[2016-12-29] MEDS: SENNA W/DOCUSATE (SENOKOT S) TABLET PO SCH (08:02)
--- NOTE | 2016-12-29 10:02 | Physical Therapy Daily Note ---
PT Daily Note-Current Subjective Patient is sitting in recliner, more alert and agrees to PT. Pain Numeric Pain Scale: 5-Moderate Pain Location: Right Location Body Site: Knee Pain Description: Acute Mental Status Patient Orientation: Person, Time, Situation Attachments: Oxygen Transfers Functional [place] Measure 0=Not Assessed/NA 4=Minimal Assistance 1=Total Assistance 5=Supervision or Setup 2=Maximal Assistance 6=Modified [place] 3=Moderate Assistance 7=Complete IndependenceIRFPAI Quality Coding Scale 6 Independent with activity with or without an assistive device 5 Patient requires set up or clean up by helper. Patient completes activity by themselves 4 Supervision or touching assist (CGA). [place] provide cues , steadying assist 3 The helper provides less than half the effort to complete the activity 2 The helper provides more than half the effort to complete the activity 1 Dependent. The helper does all the effort to complete an activity 7 Patient refused to complete or attempt activity 9 The patient did not perform the activity before the current illness or injury 88 Not attempted due to Medical conditions or safety concerns Transfers (B, C, W/C) (FIM): 4 Sit to/from Stand: 4 Weight Bearing Weight Bearing Restriction: Weight Bearing/Tolerated Location Restriction: R LE Gait Training Gait (FIM): 2 Distance (FIM): 0=751-57 ft Distance: 125' Gait Level of Assist: 4 Gait Persons Needed: 1 Gait Assistive Device: FWW slow, antalgic gait sequence; difficulty ambulating flat foot right LE with skilled instruction given for safe gait sequence Exercises Supine Ex: Ankle pumps, Quad Set, Heel Slides, Straight leg raise Supine Reps: 10 Seated Therapy Exercises: Ankle pumps, Long arc quads, Hip flexion Seated Reps: 15 Assessment Bilateral LE exercises to improve ROM to improve gait with FWW to return to home safely with family. Patient will transfer to [place] on this date for continued care. PT Fci Goals Fci Goals PT Fci Goals Time Frame: Dec 31, 2016 Transfers (B,C,W/C) (FIM): 5 Gait (FIM): 2 Distance: 50' Gait Level of Assist: 4 Gait Assistive Device: FWW PT Plan Treatment/Plan Treatment Plan: Continue Plan of Care Treatment Plan: Bed Mobility, Education, Functional Activity [place], Functional Strength, Gait, Safety, Therapeutic Exercise, Transfers Treatment Duration: Dec 31, 2016 Visits Per Week: 10-11 Minutes/Day (M-F): 15-30 Minutes/Day (Sat/Brooks): 15-30 Discharge Recommendations Therapy D/C Recommendations: Shelter (TCU/NH) Time/GCodes Time In: 915 Time Out: 940 Total Billed Treatment Time: 25 Total Billed Treatment 1 visit GT 10 min EX 15 min LIA CARBALLO PT Dec 29, 2016 10:02
[2016-12-29] MEDS ORDERED: ALPR0.5T7 PO ×2 (10:39)
--- NOTE | 2016-12-29 10:44 | Discharge Inst-Skilled Nursing ---
Discharge Inst-Skilled NF Patient Instructions Patient Problems: Right Total Knee Replacement Dementia H/o Stroke H/o SVT Goal: Increase ambulation and independence Consult/Follow Up/Orders Follow up appt.: Didi Louie will see you at [facility] [address] Skilled NF Admit to: [facility] Certifications SNF I certify that SNF services are required to be given on an inpatient basis because of the above named patient's need for long-term care on a continuing basis for the conditions(s) for which he/she was receiving inpatient hospital services prior to his/her transfer to the SNF. Custodial Facility Order: Nursing Services, Auto Garage Attendant-Evaluate & Treat, Physical Therapy-Evaluate & Treat, Wound Care-Eval/Treat Discharge Diet: Cardiac Diet Discharge Medications New, Converted or Re-Newed RX: RX on Chart New Medications: Oxycodone HCl/Acetaminophen (Percocet 5-325 mg Tablet) 1 Each Tablet 1 EACH PO Q4H, #60 TAB Continued Medications: Albuterol Sulfate (Albuterol Sulfate) 2.5 Mg/3 Ml Vial.neb 2.5 MG NEB Q6H PRN for SHORTNESS OF BREATH, EA Alprazolam (Alprazolam) 0.5 Mg Tablet 0.5 MG PO HS, #30 TAB (This prescription has been renewed) Ascorbate Calcium (Vitamin C) 500 Mg Tablet 1000 MG PO DAILY, TAB Aspirin (Aspirin EC) 81 Mg Tablet.dr 81 MG PO HS Budesonide/Formoterol Fumarate (Symbicort 160-4.5 Mcg Inhaler) 10.2 Gm Hfa.aer.ad 2 PUFF PO BID Cetirizine HCl (Cetirizine HCl) 10 Mg Tablet 10 MG PO DAILY Cholecalciferol (Vitamin D3) (Vitamin D3) 1,000 Unit Tablet 1000 UNIT PO DAILY, TAB Diclofenac Sodium (Voltaren) 100 Gm Gel..gram. 100 GM TP BID, TUBE Doxepin HCl (Doxepin HCl) 25 Mg Capsule 25 MG PO HS, CAP Esomeprazole Magnesium (Nexium) 40 Mg Cap 40 MG PO DAILY, CAP Etanercept (Enbrel) 50 Mg/1 Ml Syringe 50 MG INJ Tu, EA Gabapentin (Gabapentin) 300 Mg Capsule 600 MG PO TID, CAP TAkES 2 (300 MG) CAPSULES L.acidoph & Paracasei,B.lactis (Probiotic) 1 Each Capsule 1 CAP PO BID, CAP Montelukast Sodium (Montelukast Sodium) 10 Mg Tablet 10 MG PO DAILY Multivitamin (Gummi Bear Multivitamin) 1 Each Tab.chew 1 EACH PO BID, TAB Pravastatin Sodium (Pravastatin Sodium) 10 Mg Tablet 10 MG PO HS Ranitidine HCl (Ranitidine HCl) 150 Mg Tablet 150 MG PO BID Sertraline HCl (Sertraline HCl) 50 Mg Tablet 50 MG PO DAILY Tiotropium [place] (Spiriva Respimat) 4 Gm Mist.inhal 1 PUFF PO DAILY Verapamil HCl (Verapamil ER) 120 Mg Tablet.er 120 MG PO DAILY, TAB Discontinued Medications: Hydrocodone/Acetaminophen (Hydrocodon-Acetaminophn 10-325) 1 Each Tablet 1 EACH PO TID, TAB Wes Hein Dec 29, 2016 10:40 WES HEIN MD Dec 29, 2016 10:44
[2016-12-29 12:00] VITALS: BP 168/74
[2016-12-29 12:40] VITALS: BP 168/74
[2016-12-29 14:33] VITALS: BP 168/74
--- OUTSIDE RECORDS SUMMARY | 2016-12-30 14:38 | XMS REPORT ---
Author Author DAPHNE YUSUF Organization [employer] Address Unknown Phone Unavailable Care Team Providers Care Grazing Examiner Name Role Phone DAPHNE YUSUF CP Unavailable Allergies No Known Allergies Problems Problem Type Condition Code Onset Dates Condition Status Problem Personal history of tobacco use, presenting hazards to health V15.82 Active Problem Hypertension 401.9 Active Problem Primary localized osteoarthrosis, ankle and foot 715.17 Active Problem Peripheral vascular disease, unspecified I73.9 Active Problem Leg pain, left M79.605 Active Problem History of cerebrovascular accident with current residual effects I69.90 Active Problem PVD (peripheral vascular disease) I73.9 Active Problem 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 Problem Dysphagia, unspecified dysphagia R13.10 Active Problem Insomnia, unspecified type G47.00 Active Problem Atrial fibrillation 427.31 Active Problem Pain in joint, site unspecified 719.40 Active Problem COPD (chronic obstructive pulmonary disease) 496 Active Problem Lower limb amputation, foot V49.73 Active Problem Unspecified peripheral vascular disease 443.9 Active Problem Rheumatoid arthritis 714.0 Active Problem Insomnia, unspecified 780.52 Active Problem Encounter for long-term (current) use of other medications V58.69 Active Problem Dysthymic disorder 300.4 Active Problem Generalized osteoarthrosis, unspecified site 715.00 Active Medications Medication Code System Code Instructions Start Date End Date Status Dosage Hydrocodone-Acetaminophen [facility] [address]-88 10-325 MG Orally 2 times a day January 18, 2015 1 tablet as needed Results No Known Results Summary Purpose [employer] Submission
--- OUTSIDE RECORDS SUMMARY | 2016-12-30 14:38 | XMS REPORT | Continuity of Care Document ---
Author Author [facility] Organization [facility] Address Unknown Phone Unavailable Care Team Providers Care Coal Handler Name Role Phone PCP Unavailable Source Comments Some departments are not documenting in the electronic medical record. 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 Social History Tobacco Use Types Packs/Day Years Used Date Former Smoker Quit: 05/28/2013 Last Filed Vital Signs Vital Sign Reading Time Taken Blood Pressure 146/59 07/04/2013 2:19 PM MEDICAL TYPIST Pulse 73 07/04/2013 2:19 PM MEDICAL TYPIST Temperature 35.9 C (96.6 F) 07/04/2013 2:17 PM MEDICAL TYPIST Respiratory Rate 14 07/04/2013 2:17 PM MEDICAL TYPIST Height 1.6 m (5' 3") 07/04/2013 2:17 PM MEDICAL TYPIST Weight 58.968 kg (130 lb) 07/04/2013 2:17 PM MEDICAL TYPIST Body Mass Index 23.03 07/04/2013 2:17 PM MEDICAL TYPIST Oxygen Saturation - - Plan of Care Health Maintenance Due Date Last Done Comments Hepatitis C Screening 1949 Physical (Comprehensive) 1956 Exam Pertussis Vaccine 1960 Tetanus Vaccine 1966 Breast Cancer Screening 1989 Colorectal Cancer 1999 Screening Shingles Vaccine 2009 Osteoporosis Screening 2014 Prevnar/Pneumovax (#1) 2014 Influenza Vaccine 03/13/2017 Results from Last 3 Months Not on file
--- OUTSIDE RECORDS SUMMARY | 2016-12-30 14:38 | XMS REPORT ---
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 Problem Rheumatoid arthritis M06.9 Active Problem Anemia, unspecified type D64.9 Active Problem 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 Problem Depression, unspecified depression type F32.9 Active Problem Hx of Clostridium difficile infection Z86.19 Active Problem Iron deficiency anemia, unspecified iron deficiency anemia type D50.9 Active Problem Edema R60.9 Active Problem Osteoarthritis of foot M19.079 Active Problem Anxiety F41.9 Active Problem Chronic pain syndrome G89.4 Active Problem Dysphagia, unspecified dysphagia R13.10 Active Problem Leg pain, left M79.605 Active Problem PVD (peripheral vascular disease) I73.9 Active Problem Insomnia, unspecified type G47.00 Active Problem Hypertension I10 Active Problem COPD (chronic obstructive pulmonary disease) J44.9 Active Problem Peripheral vascular disease, unspecified I73.9 Active Problem 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 Problem History of cerebrovascular accident with current residual effects I69.90 Active Problem Atrial fibrillation I48.91 Active Medications Medication Code System Code Instructions Start Date End Date Status Dosage Symbicort [facility] 2] [address]-35 160-4.5 MCG/ACT Inhalation Twice a day October 2 puffs Vitamin C [facility] 2] [address]-12 500 MG Orally twice a day Feb 15, 2016 1 tablet Doxepin HCl [facility]NOTE 2] [address]-29 25 MG TAKE ONE CAPSULE BY MOUTH AT BEDTIME Colace [facility]NOTE 2] [address]-77 100 MG Orally Once a day 1 capsule as needed Zoloft [facility]NOTE 2] [address]-03 50 mg Orally Once a day Mar 25, 2016 1 tablet Oxygen [facility]NOTE 2] 0 2 L/NC by inhalation route all day and nite Feb 12, 2016 ... Gabapentin [facility]NOTE 2] [address]-83 300 MG TAKE TWO CAPSULES BY MOUTH THREE TIMES DAILY Aspirin EC [facility]NOTE 2] 59360111165 81 MG Orally Once a day 1 tablet Xanax [facility]NOTE 2] [address]-59 0.5 MG Orally Once a day January 15, 2015 1 tablet at bedtime Spiriva Respimat [facility]NOTE 2] [address]-48 2.5 MCG/ACT Inhalation Once a day October 31, 2015 1 puff Multi Adult Gummies [facility]NOTE 2] 13973-52351 - Orally not defined Vancomycin HCl [facility]NOTE 2] [address]-29 125 MG Orally 4 times a day May 15, 2016 May 26, 2016 1 capsule Omeprazole [facility]NOTE 2] [address]-89 20 mg Orally Once a day 1 capsules Verapamil HCl CR [facility]NOTE 2] 11844957237 120 MG Orally Once a day 1 tablet in the morning with food Montelukast Sodium [facility]NOTE 2] [address]-24 10 mg Orally Once a day at HS 1 tablet in the evening Hydrocodone-Acetaminophen [facility]NOTE 2] [address]-15 10-325 MG Orally 2 times a day 1 tablet as needed Pravastatin Sodium [facility]NOTE 2] [address]-09 10 MG TAKE ONE TABLET BY MOUTH ONCE DAILY Cetirizine HCl [facility]NOTE 2] [address]-39 10 MG Orally Once a day 1 tablet Ranitidine HCl [facility]NOTE 2] [address]-92 150 MG TAKE ONE TABLET BY MOUTH TWICE DAILY Albuterol Sulfate [facility]NOTE 2] 87514407729 (2.5 MG/3ML) 0.083% Inhalation 4 times a day as needed 3 ml Enbrel [facility]NOTE 2] [address]-32 50 MG/ML Subcutaneous once weekly 1 ml Flagyl [facility]NOTE 2] [address]-34 500 MG Orally every 8 hrs May 15, 2016 May 24, 2016 1 tablet Results No Known Results Summary Purpose eClinicalWorks Submission
--- OUTSIDE RECORDS SUMMARY | 2016-12-30 14:39 | XMS REPORT ---
Author Author DAPHNE YUSUF [facility] eClinical[employer] Address Unknown Phone Unavailable Care Team Providers Care Waste Machine Operator Name Role Phone DAPHNE YUSUF CP Unavailable Allergies, Adverse Reactions, Alerts Substance Reaction Event Type Rocephin anaphylaxis Drug Allergy Levaquin C. Diff Drug Allergy Problems Problem Type Condition Code Onset Dates Condition Status Assessment Other chronic pain G89.29 Active Assessment Pain in left knee M25.562 Active Assessment Pain in right knee M25.561 Active Assessment Rheumatoid arthritis, involving unspecified site, unspecified rheumatoid factor presence M06.9 Active Assessment COPD (chronic obstructive pulmonary disease) J44.9 Active Assessment Peripheral edema R60.9 Active Problem Dysthymia F34.1 Active Assessment C. 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 Problem Edema R60.9 Active Problem Osteoarthritis of foot M19.079 Active Problem Other chronic pain G89.29 Active Problem Iron deficiency anemia, unspecified iron deficiency anemia type D50.9 Active Problem Insomnia, unspecified type G47.00 Active Problem PVD (peripheral vascular disease) I73.9 Active Problem Rheumatoid arthritis, involving unspecified site, unspecified rheumatoid factor presence M06.9 Active Problem 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 Problem Anxiety F41.9 Active Problem Chronic pain syndrome G89.4 Active Problem Anemia, unspecified type D64.9 Active Problem Depression, unspecified depression type F32.9 Active Problem Peripheral vascular disease, unspecified I73.9 Active Problem History of cerebrovascular accident with current residual effects I69.90 Active Problem Dysphagia, unspecified dysphagia R13.10 Active Problem Leg pain, left M79.605 Active Problem 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 Problem Atrial fibrillation I48.91 Active Problem Hypertension I10 Active Problem COPD (chronic obstructive pulmonary disease) J44.9 Active Medications Medication Code System Code Instructions Start Date End Date Status Dosage Vitamin C NDC [address]-46 500 MG Orally twice a day Feb 15, 2016 1 tablet Symbicort [facility] [address]-45 160-4.5 MCG/ACT Inhalation Twice a day October 2 puffs Ranitidine HCl [facility] [address]-38 150 MG TAKE ONE TABLET BY MOUTH TWICE DAILY Pravastatin Sodium [facility] [address]-08 10 MG TAKE ONE TABLET BY MOUTH ONCE DAILY Colace [facility] [address]-50 100 MG Orally Once a day 1 capsule as needed Oxygen ND 0 2 L/NC by inhalation route all day and nite Feb 12, 2016 ... Enbrel [facility] [address]-69 50 MG/ML Subcutaneous once weekly 1 ml Montelukast Sodium [facility] [address]-91 10 mg Orally Once a day at HS 1 tablet in the evening Xanax [facility] [address]-53 0.5 MG Orally Once a day January 15, 2015 1 tablet at bedtime Zoloft [facility] [address]-89 50 mg Orally Once a day Mar 25, 2016 1 tablet Doxepin HCl [facility] [address]-89 25 MG TAKE ONE CAPSULE BY MOUTH AT BEDTIME Flagyl [facility] [address]-08 500 MG Orally every 8 hrs May 15, 2016 May 24, 2016 1 tablet Albuterol Sulfate [facility] 44882265007 (2.5 MG/3ML) 0.083% Inhalation every 6 hrs 3 ml Cetirizine HCl [facility] [address]-34 10 MG Orally Once a day 1 tablet Verapamil HCl CR [facility] 40964529375 120 MG Orally Once a day 1 tablet in the morning with food Hydrocodone-Acetaminophen [facility] [address]-50 10-325 MG Orally 2 times a day 1 tablet as needed Multi Adult Gummies [facility] 85367-03918 - Orally not defined Aspirin EC [facility] 96578608181 81 MG Orally Once a day 1 tablet Vancomycin HCl [facility] [address]-78 125 MG Orally 4 times a day May 15, 2016 May 26, 2016 1 capsule Spiriva Respimat [facility] [address]-76 2.5 MCG/ACT Inhalation Once a day October 31, 2015 1 puff Gabapentin [facility] [address]-99 300 MG TAKE TWO CAPSULES BY MOUTH THREE TIMES DAILY Omeprazole [facility] [address]-70 20 mg Orally Once a day 1 capsules Procedures Procedure Coding System Code Date Office Visit, Est Pt., Level 3 CPT-4 22971 May 21, 2016 [facility] VISIT ESTABLISHED PATIENT CPT-4 G0467 May 21, 2016 Vital Signs Date/Time: May 21, 2016 Cardiac Monitoring Heart Rate 68 bpm Weight 175.8 lbs Height 63 in BMI 31.14 Index Blood Pressure Diastolic 58 mmHg Blood Pressure Systolic 106 mmHg Results No Known Results Summary Purpose [employer]ClinicalWorks Submission
--- OUTSIDE RECORDS SUMMARY | 2016-12-30 14:43 | XMS REPORT ---
Author Author WES LEHMAN Organization [facility] Address [address] [place] [address] Care Team Providers Care Flexible Shaft Winder Name Role Phone WES LEHMAN Unavailable PROBLEMS Type Condition ICD9-CM Code PFT83-UT Code Onset Dates Condition Status SNOMED Code Problem Osteoarthritis of foot M19.079 Active 097374629 Problem Chronic pain syndrome G89.4 Active 317202053 Problem Edema R60.9 Active 919393482 Problem Rheumatoid arthritis, involving unspecified site, unspecified rheumatoid factor presence M06.9 Active 21557298 Problem Dysphagia, unspecified dysphagia R13.10 Active 58736384 Problem Other chronic pain G89.29 Active 06714375 Problem Insomnia, unspecified type G47.00 Active 110557035 Problem PVD (peripheral vascular disease) I73.9 Active 658425863 Problem Depression, unspecified depression type F32.9 Active 24068221 Problem Anxiety F41.9 Active 24054374 Problem Iron deficiency anemia, unspecified iron deficiency anemia type D50.9 Active 21423798 Problem Anemia, unspecified type D64.9 Active 271617663 Problem History of cerebrovascular accident with current residual effects I69.90 Active 045121221 Problem Hypertension I10 Active 35304761 Problem Leg pain, left M79.605 Active 323120301 Problem Peripheral vascular disease, unspecified I73.9 Active 463424820 Problem Atrial fibrillation I48.91 Active 04303440 Problem Dysthymia F34.1 Active 01281366 Problem Hx of Clostridium difficile infection Z86.19 Active 251180438 Problem COPD (chronic obstructive pulmonary disease) J44.9 Active 53756706 Problem Rheumatoid arthritis M06.9 Active 98451479 Problem 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 Feb, Active Probiotic - Active Gabapentin 300 MG TAKE TWO CAPSULES BY MOUTH THREE TIMES DAILY 30 Active Doxepin HCl 25 MG TAKE ONE CAPSULE BY MOUTH AT BEDTIME 90 Active Levaquin 750 MG Orally Once a day 1 tablet 24h Jun, Jun, Active Cetirizine HCl 10 MG Orally Once a day 1 tablet 24h Active Multi Adult Gummies - Active Aspirin EC 81 MG Orally Once a day 1 tablet 24h 30 Active Hydrocodone-Acetaminophen 10-325 MG Orally 2 times a day 1 tablet as needed 12h May, 28 days Active Symbicort 160-4.5 MCG/ACT Inhalation Twice a day 2 puffs 12h Oct, Active Ranitidine HCl 150 MG TAKE ONE TABLET BY MOUTH TWICE DAILY 30 Active Albuterol Sulfate (2.5 MG/3ML) 0.083% Inhalation every 6 hrs 3 ml 6h 30 days Active Omeprazole 20 mg Orally Once a day 1 capsules 24h Active Vitamin C 500 MG Orally twice a day 1 tablet 12h Feb, 30 day(s ) Active Verapamil HCl CR 120 MG Orally Once a day 1 tablet in the morning with food 24h 90 Active Pravastatin Sodium 10 MG TAKE ONE TABLET BY MOUTH ONCE DAILY 30 Active Montelukast Sodium 10 mg Orally Once a day at HS 1 tablet in the evening Active Sertraline HCl 50 MG TAKE ONE TABLET BY MOUTH ONCE DAILY 90 Active Vancomycin HCl 50 MG/ML Orally every 6 hrs 2.5 ml 6h Jun, Jun, Active Zoloft 50 mg Orally Once a day 1 tablet 24h 13 Mar, 2016 Active Spiriva Respimat 2.5 MCG/ACT Inhalation Once a day 1 puff 24h Oct, Active RESULTS No Results PROCEDURES No Known procedures IMMUNIZATIONS No Known Immunizations
--- OUTSIDE RECORDS SUMMARY | 2016-12-30 14:44 | XMS REPORT ---
Author Author DAPHNE YUSUF Organization [employer] Address Unknown Phone Unavailable Care Team Providers Care Project Specialist Name Role Phone DAPHNE YUSUF CP Unavailable Allergies No Known Allergies Problems Problem Type Condition Code Onset Dates Condition Status Problem Atrial fibrillation I48.91 Active Problem Rheumatoid arthritis M06.9 Active Problem Dysthymia F34.1 Active Problem Depression, unspecified depression type F32.9 Active Assessment Anemia, unspecified type D64.9 Active Problem Anxiety F41.9 Active Problem Anemia, unspecified type D64.9 Active Problem Osteoarthritis of foot M19.079 Active Problem Tobacco abuse, 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 Problem Chronic pain syndrome G89.4 Active Problem Edema R60.9 Active Problem Insomnia, unspecified type G47.00 Active Problem Dysphagia, unspecified dysphagia R13.10 Active Problem 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 Problem PVD (peripheral vascular disease) I73.9 Active Problem History of cerebrovascular accident with current residual effects I69.90 Active Problem Hypertension I10 Active Problem Leg pain, left M79.605 Active Problem COPD (chronic obstructive pulmonary disease) J44.9 Active Problem Peripheral vascular disease, unspecified I73.9 Active Problem 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
--- OUTSIDE RECORDS SUMMARY | 2016-12-30 14:44 | XMS REPORT ---
Author Author DAPHNE YUSUF [facility] [employer] Address Unknown Phone Unavailable Care Team Providers Care Cold Water Machine Operator Name Role Phone DAPHNE YUSUF [...] Instructions Start Date End Date Status Dosage Doxepin HCl [facility] [address]-65 25 MG TAKE ONE CAPSULE BY MOUTH AT BEDTIME Multi Adult Gummies [facility] [address]60 - Orally not defined Enbrel [facility] [address]-38 50 MG/ML Subcutaneous once weekly 1 ml Xanax [facility] [address]-47 0.5 MG Orally Once a day January 15, 2015 1 tablet at bedtime Ranitidine HCl [facility] [address]-73 150 MG TAKE ONE TABLET BY MOUTH TWICE DAILY Symbicort [facility] [address]-72 160-4.5 MCG/ACT Inhalation Twice a day October 2 puffs Verapamil HCl CR [facility] 72367379025 120 MG Orally Once a day 1 tablet in the morning with food Pravastatin Sodium [facility] [address]-34 10 MG TAKE ONE TABLET BY MOUTH ONCE DAILY Albuterol Sulfate [facility] 95061621997 (2.5 MG/3ML) 0.083% Inhalation 4 times a day as needed 3 ml Oxygen [facility] 0 2 L/NC by inhalation route all day and nite Feb 12, 2016 ... Spiriva Respimat [facility] [address]-16 2.5 MCG/ACT Inhalation Once a day October 31, 2015 1 puff Aspirin EC [facility] 63126948614 81 MG Orally Once a day 1 tablet Zoloft [facility] [address]-00 50 mg Orally Once a day Mar 25, 2016 1 tablet Gabapentin [facility] [address]-77 300 MG TAKE TWO CAPSULES BY MOUTH THREE TIMES DAILY Colace [facility] [address]-56 100 MG Orally Once a day 1 capsule as needed Cetirizine HCl [facility] [address]-87 10 MG Orally Once a day 1 tablet Vitamin C [facility] [address]-14 500 MG Orally twice a day Feb 15, 2016 1 tablet Hydrocodone-Acetaminophen [facility] [address]-74 10-325 MG Orally 2 times a day 1 tablet as needed Montelukast Sodium [facility] [address]-49 10 mg Orally Once a day at HS 1 tablet in the evening Results No Known Results Summary Purpose [employer] Submission
--- OUTSIDE RECORDS SUMMARY | 2016-12-30 14:44 | XMS REPORT ---
Author Author DAPHNE YUSUF Organization [employer] Address Unknown Phone Unavailable Care Team Providers Care Associate Financial Planner Name Role Phone DAPHNE YSUUF CP Unavailable Allergies No Known Allergies Problems [...] Medications Procedures Procedure Coding System Code Date VENIPUNCT, ROUTINE* CPT-4 79193 January 25, 2016 [facility] C[facility]-4 NOBLL January 25, 2016 Results No Known Results Summary Purpose [employer]ClinicalWorks Submission
--- OUTSIDE RECORDS SUMMARY | 2016-12-30 14:44 | XMS REPORT ---
Author Author DAPHNE YUSUF Organization [employer] Address Unknown Phone Unavailable Care Team Providers Care Supervisor Travel Information Center Name Role Phone DAPHNE YUSUF CP Unavailable [...] Generalized osteoarthrosis, unspecified site 715.00 Active Medications No Known Medications Results No Known Results Summary Purpose [employer] Submission
--- OUTSIDE RECORDS SUMMARY | 2016-12-30 14:44 | XMS REPORT ---
Author Author DAPHNE YUSUF [facility] eClinicalWorks Address Unknown Phone Unavailable Care Team Providers Care Senior Application Programmer Name Role Phone DAPHNE YUSUF CP Unavailable [...] Hx of Clostridium difficile infection Z86.19 Active Assessment Anxiety F41.9 Active Problem Iron deficiency anemia, unspecified iron [...] Instructions Start Date End Date Status Dosage Aspirin EC [facility] 06913713348 81 MG Orally Once a day 1 tablet Montelukast Sodium [facility] [address]-53 10 mg Orally Once a day at HS 1 tablet in the evening Symbicort [facility] [address]-59 160-4.5 MCG/ACT Inhalation Twice a day October 2 puffs Hydrocodone-Acetaminophen [facility] [address]-18 10-325 MG Orally 2 times a day 1 tablet as needed Multi Adult Gummies [facility] [address] - Orally not defined Verapamil HCl CR [facility] 81777602267 120 MG Orally Once a day 1 tablet in the morning with food Doxepin HCl [facility] [address]-45 25 MG TAKE ONE CAPSULE BY MOUTH AT BEDTIME Vitamin C [facility] [address]-24 500 MG Orally twice a day Feb 15, 2016 1 tablet Gabapentin [facility] [address]-66 300 MG TAKE TWO CAPSULES BY MOUTH THREE TIMES DAILY Pravastatin Sodium [facility] [address]-26 10 MG TAKE ONE TABLET BY MOUTH ONCE DAILY Colace [facility] [address]-89 100 MG Orally Once a day 1 capsule as needed Zoloft [facility] [address]-42 50 mg Orally Once a day Mar 25, 2016 1 tablet Xanax [facility] [address]-48 0.5 MG Orally Once a day January 15, 2015 1 tablet at bedtime Albuterol Sulfate [facility] 74516775729 (2.5 MG/3ML) 0.083% Inhalation 4 times a day as needed 3 ml Ranitidine HCl [facility] [address]-76 150 MG TAKE ONE TABLET BY MOUTH TWICE DAILY Oxygen ND 0 2 L/NC by inhalation route all day and nite Feb 12, 2016 ... Cetirizine HCl [facility] [address]-02 10 MG Orally Once a day 1 tablet Spiriva Respimat [facility] [address]-09 2.5 MCG/ACT Inhalation Once a day October 31, 2015 1 puff Results No Known Results Summary Purpose [employer]ClinicalWorks Submission
--- OUTSIDE RECORDS SUMMARY | 2016-12-30 14:44 | XMS REPORT ---
Author Author DAPHNE YUSUF Organization [employer] Address Unknown Phone Unavailable Care Team Providers Care Director Of Instruction Name Role Phone DAPHNE YUSUF CP Unavailable Allergies No Known Allergies Problems Problem Type Condition Code Onset Dates Condition Status Problem Generalized osteoarthrosis, unspecified site 715.00 Active Problem Primary localized osteoarthrosis, ankle and foot 715.17 Active Problem Personal history of tobacco use, presenting hazards to health V15.82 Active Problem Leg pain, left M79.605 Active Problem Dysphagia, unspecified dysphagia R13.10 Active Problem Peripheral vascular disease, unspecified I73.9 Active Problem 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 Problem Hypertension 401.9 Active Problem Insomnia, unspecified type G47.00 Active Problem PVD (peripheral vascular disease) I73.9 Active Problem Lower limb amputation, foot V49.73 Active Problem Atrial fibrillation 427.31 Active Assessment Peripheral vascular disease I73.9 Active Problem COPD (chronic obstructive pulmonary disease) 496 Active Problem Dysthymic disorder 300.4 Active Problem Unspecified peripheral vascular disease 443.9 Active Problem Pain in joint, site unspecified 719.40 Active Problem Rheumatoid arthritis 714.0 Active Problem Insomnia, unspecified 780.52 Active Problem Encounter for long-term (current) use of other medications V58.69 Active Medications No Known Medications Results No Known Results Summary Purpose [employer]ClinicalWorks Submission
--- OUTSIDE RECORDS SUMMARY | 2016-12-30 14:44 | XMS REPORT ---
Author Author DAPHNE YUSUF Organization [employer] Address Unknown Phone Unavailable Care Team Providers Care Behavioral Therapy Coordinator Name Role Phone DAPHNE YUSUF CP Unavailable Allergies No Known Allergies Problems Problem Type Condition Code Onset Dates Condition Status Problem Pain in joint, site unspecified 719.40 Active Problem Dysthymic disorder 300.4 Active Problem Insomnia, unspecified 780.52 Active Problem Primary localized osteoarthrosis, ankle and foot 715.17 Active Problem Personal history of tobacco use, presenting hazards to health V15.82 Active Problem Hypertension 401.9 Active Problem Rheumatoid arthritis 714.0 Active Problem Unspecified peripheral vascular disease 443.9 Active Problem Generalized osteoarthrosis, unspecified site 715.00 Active Problem Encounter for long-term (current) use of other medications V58.69 Active Problem COPD (chronic obstructive pulmonary disease) 496 Active Problem Lower limb amputation, foot V49.73 Active Problem Atrial fibrillation 427.31 Active Medications Medication Code System Code Instructions Start Date End Date Status Dosage Xanax [facility] [address]-68 0.5 MG Orally Once a day at bedtime January 15, 2015 1 tablet Hydrocodone-Acetaminophen [facility] [address]-91 10-325 MG Orally 2 times a day January 18, 2015 1 tablet as needed Results No Known Results Summary Purpose [employer]ClinicalWorks Submission
--- OUTSIDE RECORDS SUMMARY | 2016-12-30 14:44 | XMS REPORT ---
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 812928740 Problem Iron deficiency anemia, unspecified iron deficiency anemia type D50.9 Active 70923056 Problem PVD (peripheral vascular disease) I73.9 Active 620494483 Problem Anemia, unspecified type D64.9 Active 386872525 Problem 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 315463225 Problem Hx of Clostridium difficile infection Z86.19 Active 280064205 Problem Chronic pain syndrome G89.4 Active 224104290 Problem Edema R60.9 Active 005032815 Problem Depression, unspecified depression type F32.9 Active 74441202 Problem Anxiety F41.9 Active 15664219 Problem Leg pain, left M79.605 Active 417962702 Problem Peripheral vascular disease, unspecified I73.9 Active 670742366 Problem Insomnia, unspecified type G47.00 Active 281490168 Problem Dysphagia, unspecified dysphagia R13.10 Active 16193955 Problem COPD (chronic obstructive pulmonary disease) J44.9 Active 00636763 Problem 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 783495567 Assessment Rheumatoid arthritis with positive rheumatoid factor, involving unspecified site M05.9 Mar, Active 50856108 Problem History of cerebrovascular accident with current residual effects I69.90 Active 246708957 Problem Atrial fibrillation I48.91 Active 26695847 Assessment Iron deficiency anemia, unspecified iron deficiency anemia type D50.9 Mar, Active 40410348 Problem Hypertension I10 Active 24970371 Problem Dysthymia F34.1 Active 65690363 ALLERGIES Unknown Allergies SOCIAL HISTORY No smoking Hx information available PLAN OF CARE VITAL SIGNS MEDICATIONS Unknown Medications RESULTS Name Result Date Reference Range JEMMA ANALYZER 2016-04-01 JEMMA Direct Negative Negative See below: URIC ACID, SERUM 2016-04-01 Uric Acid, Serum 7.0 2.5-7.1 CBC 2016-04-01 WBC 16.0 3.4-10.8 RBC 4.28 3.77-5.28 Hemoglobin 9.8 11.1-15.9 Hematocrit 33.0 34.0-46.6 MCV 77 79-97 MCH 22.9 26.6-33.0 MCHC 29.7 31.5-35.7 RDW 23.8 12.3-15.4 Platelets 682 150-379 Neutrophils 81 Lymphs 13 Monocytes 6 Eos 0 Basos 0 Immature Cells Neutrophils (Absolute) 12.8 1.4-7.0 Lymphs (Absolute) 2.2 0.7-3.1 Monocytes(Absolute) 0.9 0.1-0.9 Eos (Absolute) 0.1 0.0-0.4 Baso (Absolute) 0.0 0.0-0.2 Immature Granulocytes 0 Immature Grans (Abs) 0.0 0.0-0.1 NRBC 0 0 - 0 Hematology Comments: Note: RA (RHEUMATOID) FACTOR 2016-04-01 RA Latex Turbid. 1258.6 0.0-13.9 CMP 2016-04-01 Glucose, Serum 90 65-99 BUN 13 8-27 Creatinine, Serum 0.82 0.57-1.00 eGFR If NonAfricn Am 75 >59 eGFR If Africn Am 86 >59 BUN/Creatinine Ratio 16 11-26 Sodium, Serum 140 134-144 Potassium, Serum 4.3 3.5-5.2 Chloride, Serum 96 97-108 Carbon Dioxide, Total 24 18-29 Calcium, Serum 9.4 8.7-10.3 Protein, Total, Serum 7.7 6.0-8.5 Albumin, Serum 3.2 3.6-4.8 Globulin, Total 4.5 1.5-4.5 A/G Ratio 0.7 1.1-2.5 Bilirubin, Total 0.6 0.0-1.2 Alkaline Phosphatase, S 112 39-117 AST (SGOT) 14 0-40 ALT (SGPT) 10 0-32 ESR/SED RATE (IN HOUSE) 2016-04-01 SED/ESR RATE 114 mm/hr Lot # [id number] Exp Date 09 Sep 2016 0 - 30 mm PROCEDURES Procedure Date Ordered Related Diagnosis Body Site LAB NOT B[facility]ED BY [facility] Apr 01, 2016 RBC SED RATE, NONAUTOMATED Apr 01, 2016 VENIPUNCT, ROUTINE* Apr 01, 2016 IMMUNIZATIONS No Known Immunizations
--- OUTSIDE RECORDS SUMMARY | 2016-12-30 14:45 | XMS REPORT ---
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 Problem Rheumatoid arthritis M06.9 Active Problem Anemia, unspecified type D64.9 Active Problem Depression, unspecified depression type F32.9 Active Problem 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
--- OUTSIDE RECORDS SUMMARY | 2016-12-30 14:45 | XMS REPORT ---
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 Problem Rheumatoid arthritis M06.9 Active Problem Osteoarthritis of foot M19.079 Active Problem 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
--- OUTSIDE RECORDS SUMMARY | 2016-12-30 14:45 | XMS REPORT ---
Author Author JAMES MENDEZ [facility] eClinicalWorks Address Unknown Phone Unavailable Care Team Providers Care Career Consultant Name Role Phone JAMES MENDEZ CP Unavailable [...] Instructions Start Date End Date Status Dosage Flagyl [facility] [address]-09 500 MG Orally 3 times a day for 10 days Apr 25, 2016 May 04, 2016 1 tablet Hydrocodone-Acetaminophen [facility] [address]-65 10-325 MG Orally 2 times a day 1 tablet as needed Multi Adult Gummies [facility] [address] - Orally not defined Gabapentin [facility] 06935968903 300 MG Orally Three times a day 2 capsule Verapamil HCl CR [facility] 87966450546 120 MG Orally Once a day 1 tablet in the morning with food Pravastatin Sodium [facility] 81784177652 10 MG Orally Once a day 1 tablet Oxygen ND 0 2 L/NC by inhalation route all day and nite Feb 12, 2016 ... Colace [facility] [address]-28 100 MG Orally Once a day 1 capsule as needed Symbicort [facility] [address]-20 160-4.5 MCG/ACT Inhalation Twice a day October 2 puffs Vitamin C [facility] [address]-18 500 MG Orally twice a day Feb 15, 2016 1 tablet Doxepin HCl [facility] 89012405555 25 MG Orally Once a day at HS 1 capsule at bedtime Albuterol Sulfate [facility] 22108680158 (2.5 MG/3ML) 0.083% Inhalation 4 times a day as needed 3 ml Zoloft [facility] [address]-57 50 mg Orally Once a day Mar 25, 2016 1 tablet Montelukast Sodium [facility] [address]-37 10 mg Orally Once a day at HS 1 tablet in the evening Spiriva Respimat [facility] [address]-42 2.5 MCG/ACT Inhalation Once a day October 31, 2015 1 puff Aspirin EC [facility] 18776248776 81 MG Orally Once a day 1 tablet Xanax [facility] [address]-52 0.5 MG Orally Once a day January 15, 2015 1 tablet at bedtime Ranitidine HCl [facility] 65609470236 150 MG TAKE ONE TABLET BY MOUTH TWICE DAILY Cetirizine HCl [facility] [address]-12 10 MG Orally Once a day 1 tablet Results No Known Results Summary Purpose eClinicalWorks Submission
--- OUTSIDE RECORDS SUMMARY | 2016-12-30 14:45 | XMS REPORT ---
Author Author DAPHNE YUSUF Organization [employer] Address Unknown Phone Unavailable Care Team Providers Care Client Technical Support Associate Name Role Phone DAPHNE YUSUF CP Unavailable [...] 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 Active Medications No Known Medications Results No Known Results Summary Purpose eClinicalWorks Submission
--- OUTSIDE RECORDS SUMMARY | 2016-12-30 14:45 | XMS REPORT ---
Author Author DAPHNE YUSUF Organization [employer] Address Unknown Phone Unavailable Care Team Providers Care Refund Clerk Name Role Phone DAPHNE YUSUF CP Unavailable [...] V49.73 Active Problem Atrial fibrillation 427.31 Active Problem COPD (chronic obstructive pulmonary disease) [...]
--- OUTSIDE RECORDS SUMMARY | 2016-12-30 14:45 | XMS REPORT ---
Author Author DAPHNE YUSUF Organization eClinicalWorks Address Unknown Phone Unavailable Care Team Providers Care Porcelain Enameler Name Role Phone DAPHNE YUSUF CP Unavailable [...] Instructions Start Date End Date Status Dosage Gabapentin [facility] [address]-22 300 MG Orally Three times a day January 18, 2015 2 capsule Results No Known Results Summary Purpose eClinicalWorks Submission
--- OUTSIDE RECORDS SUMMARY | 2016-12-30 14:46 | XMS REPORT ---
Author Author DAPHNE YUSUF Organization [employer] Address Unknown Phone Unavailable Care Team Providers Care Software Business Analyst Name Role Phone DAPHNE YUSUF CP Unavailable Allergies No Known Allergies Problems Problem Type Condition Code Onset Dates Condition Status Problem Dysthymia F34.1 Active Assessment Anxiety F41.9 Active Problem Rheumatoid arthritis M06.9 Active Problem [...] Start Date End Date Status Dosage Xanax [facility] [address]-67 0.5 MG Orally Once a day January 15, 2015 1 tablet at bedtime Results No Known Results Summary Purpose eClinicalWorks Submission
--- OUTSIDE RECORDS SUMMARY | 2016-12-30 14:46 | XMS REPORT ---
Author Author DAPHNE YUSUF Organization [employer] Address Unknown Phone Unavailable Care Team Providers Care Pony Rougher Name Role Phone DAPHNE YUSUF CP Unavailable [...] of Clostridium difficile infection Z86.19 Active Assessment Leg pain, left M79.605 Active Problem Iron deficiency anemia, unspecified iron [...] Active Problem Atrial fibrillation I48.91 Active Medications No Known Medications Procedures Procedure Coding System Code Date VENIPUNCT, ROUTINE* CPT-4 92865 May 06, 2016 LAB NOT BILLED BY [facility] CPT-4 NOBLL May 06, 2016 Results Name Result Date Reference Range Unit Abnormality Flag ROUTINE VENIPUNCTURE Summary Purpose eClinicalWorks Submission
--- OUTSIDE RECORDS SUMMARY | 2016-12-30 14:46 | XMS REPORT ---
Author Author DAPHNE YUSUF Organization [employer] Address Unknown Phone Unavailable Care Team Providers Care Commissioning Engineer Name Role Phone DAPHNE YUSUF CP Unavailable [...] Instructions Start Date End Date Status Dosage Pravastatin Sodium [facility] [address]-08 10 MG Orally Once a day 1 tablet Results No Known Results Summary Purpose eClinicalWorks Submission
--- OUTSIDE RECORDS SUMMARY | 2016-12-30 14:46 | XMS REPORT ---
Author Author DAPHNE YUSUF Organization e[employer] Address Unknown Phone Unavailable Care Team Providers Care Temperature Inspector Name Role Phone DAPHNE YUSUF CP Unavailable [...] Instructions Start Date End Date Status D[facility] [address]-68 5 MG Orally Once a day May 21, 2015 1 tablet at bedtime Results No Known Results Summary Purpose eClinicalWorks Submission
--- OUTSIDE RECORDS SUMMARY | 2016-12-30 14:46 | XMS REPORT ---
Author Author DAPHNE YUSUF Organization [employer] Address Unknown Phone Unavailable Care Team Providers Care Eyeletter Name Role Phone DAPHNE YUSUF CP Unavailable Allergies No Known Allergies Problems Problem Type Condition Code Onset Dates Condition Status Problem Atrial fibrillation I48.91 Active Problem Rheumatoid arthritis M06.9 Active Problem Dysthymia F34.1 Active Problem Depression, unspecified depression type F32.9 Active Problem Anxiety F41.9 Active Problem Anemia, [...]
--- OUTSIDE RECORDS SUMMARY | 2016-12-30 14:46 | XMS REPORT ---
Author Author DAPHNE YUSUF Organization [employer] Address Unknown Phone Unavailable Care Team Providers Care Db2 Dba Name Role Phone DAPHNE YUSUF CP Unavailable [...] of Clostridium difficile infection Z86.19 Active Assessment Chronic pain syndrome G89.4 Active Problem Iron deficiency anemia, unspecified iron [...] Start Date End Date Status Dosage Hydrocodone-Acetaminophen [facility] [address]-91 10-325 MG Orally 2 times a day 1 tablet as needed Results No Known Results Summary Purpose eClinicalWorks Submission
--- OUTSIDE RECORDS SUMMARY | 2016-12-30 14:46 | XMS REPORT ---
Author Author DAPHNE YUSUF Organization e[employer] Address Unknown Phone Unavailable Care Team Providers Care Emergency Room Physician Assistant Name Role Phone DAPHNE YUSUF CP [...]
--- OUTSIDE RECORDS SUMMARY | 2016-12-30 14:46 | XMS REPORT ---
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 056289712 Problem Iron deficiency anemia, unspecified iron deficiency anemia type D50.9 Active 78373878 Problem PVD (peripheral vascular disease) I73.9 Active 861347749 Problem Anemia, unspecified type D64.9 Active 775635674 Problem 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 384123905 Problem Hx of Clostridium difficile infection Z86.19 Active 059807779 Problem Chronic pain syndrome G89.4 Active 135058338 Problem Edema R60.9 Active 752737641 Problem Depression, unspecified depression type F32.9 Active 30071975 Problem Anxiety F41.9 Active 83034711 Problem Leg pain, left M79.605 Active 021051002 Problem Peripheral vascular disease, unspecified I73.9 Active 945488455 Problem Insomnia, unspecified type G47.00 Active 550044917 Problem Dysphagia, unspecified dysphagia R13.10 Active 78733074 Problem COPD (chronic obstructive pulmonary disease) J44.9 Active 35217697 Problem 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 634672307 Problem History of cerebrovascular accident with current residual effects I69.90 Active 745326675 Problem Atrial fibrillation I48.91 Active 79498717 Assessment Acute frontal sinusitis, recurrence not specified J01.10 Mar, Active 15193505 Problem Hypertension I10 Active 95277453 Problem Dysthymia F34.1 Active 78578115 ALLERGIES Unknown Allergies SOCIAL HISTORY No smoking Hx information available PLAN OF CARE VITAL SIGNS MEDICATIONS Medication Instructions Dosage Frequency Start Date End Date Duration Status Levaquin 500 MG Orally Once a day 1 tablet 24h Mar, Apr, 10 day(s) Active RESULTS No Results PROCEDURES No Known procedures IMMUNIZATIONS No Known Immunizations
--- OUTSIDE RECORDS SUMMARY | 2016-12-30 14:46 | XMS REPORT ---
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 805553412 Problem Iron deficiency anemia, unspecified iron deficiency anemia type D50.9 Active 01589196 Problem PVD (peripheral vascular disease) I73.9 Active 634383195 Problem Anemia, unspecified type D64.9 Active 761104906 Problem 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 973574232 Problem Hx of Clostridium difficile infection Z86.19 Active 409005337 Problem Chronic pain syndrome G89.4 Active 926058909 Problem Edema R60.9 Active 793970178 Problem Depression, unspecified depression type F32.9 Active 50831858 Problem Anxiety F41.9 Active 81242455 Problem Leg pain, left M79.605 Active 391779088 Problem Peripheral vascular disease, unspecified I73.9 Active 415720250 Problem Insomnia, unspecified type G47.00 Active 442886818 Problem Dysphagia, unspecified dysphagia R13.10 Active 96731434 Problem COPD (chronic obstructive pulmonary disease) J44.9 Active 50953293 Problem 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 557535109 Problem History of cerebrovascular accident with current residual effects I69.90 Active 885796578 Problem Atrial fibrillation I48.91 Active 23235959 Problem Hypertension I10 Active 68597472 Problem Dysthymia F34.1 Active 31688247 ALLERGIES Unknown Allergies SOCIAL HISTORY No smoking Hx information available PLAN OF CARE VITAL SIGNS MEDICATIONS Medication Instructions Dosage Frequency Start Date End Date Duration Status Hydrocodone-Acetaminophen 10-325 MG Orally 2 times a day 1 tablet as needed 12h 28 days Active RESULTS No Results PROCEDURES No Known procedures IMMUNIZATIONS No Known Immunizations
--- OUTSIDE RECORDS SUMMARY | 2016-12-30 14:46 | XMS REPORT ---
Author Author DAPHNE YUSUF Organization eClinicalWorks Address Unknown Phone Unavailable Care Team Providers Care Residential Green Building Designer Name Role Phone DAPHNE YUSUF CP Unavailable [...] Instructions Start Date End Date Status Dosage [facility] [address]-30 5 MG Orally Once a day May 21, 2015 1 tablet at bedtime Results No Known Results Summary Purpose eClinicalWorks Submission
--- OUTSIDE RECORDS SUMMARY | 2016-12-30 14:47 | XMS REPORT ---
Author Author DAPHNE YUSUF Organization eClinicalWorks Address Unknown Phone Unavailable Care Team Providers Care Food And Beverage Operations Manager Name Role Phone DAPHNE YUSUF CP Unavailable [...]
--- OUTSIDE RECORDS SUMMARY | 2016-12-30 14:47 | XMS REPORT ---
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
--- OUTSIDE RECORDS SUMMARY | 2016-12-30 14:47 | XMS REPORT ---
Author Author DAPHNE YUSUF Organization eClinicalWorks Address Unknown Phone Unavailable Care Team Providers Care Lead Developer Name Role Phone DAPHNE YUSUF CP Unavailable Allergies No Known Allergies Problems Problem Type Condition Code Onset Dates Condition Status Problem Dysthymia F34.1 Active Assessment Chronic bronchitis, unspecified chronic bronchitis type J42 Active Problem Rheumatoid arthritis M06.9 Active Problem [...] Instructions Start Date End Date Status Dosage Spiriva Respimat [facility] [address]-52 2.5 MCG/ACT Inhalation Once a day October 31, 2015 1 puff Symbicort [facility] [address]-43 160-4.5 MCG/ACT Inhalation Twice a day October 2 puffs Results No Known Results Summary Purpose eClinicalWorks Submission
--- OUTSIDE RECORDS SUMMARY | 2016-12-30 14:47 | XMS REPORT ---
Author Author JAMES MENDEZ Organization eClinicalWorks Address Unknown Phone Unavailable Care Team Providers Care Data Reduction Technician Name Role Phone JAMES MENDEZ CP Unavailable [...] fibrillation I48.91 Active Medications No Known Medications Results No Known Results Summary Purpose eClinicalWorks Submission
--- OUTSIDE RECORDS SUMMARY | 2016-12-30 14:47 | XMS REPORT ---
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
--- OUTSIDE RECORDS SUMMARY | 2016-12-30 14:48 | XMS REPORT ---
Author Author NAM GASPAR Organization eClinicalWorks Address Unknown Phone Unavailable Care Team Providers Care Software Asset Management Analyst Name Role Phone NAM GASPAR CP Unavailable Allergies No Known Allergies Problems [...]
--- OUTSIDE RECORDS SUMMARY | 2016-12-30 14:48 | XMS REPORT ---
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 Problem Dysthymia F34.1 Active Problem Atrial fibrillation I48.91 Active Problem Anxiety F41.9 Active Assessment Cervicalgia M54.2 Active Problem Chronic pain syndrome G89.4 Active Assessment Fatigue, unspecified type R53.83 Active Assessment Depression, unspecified depression type F32.9 Active Problem Depression, unspecified depression type F32.9 Active Problem Tobacco abuse, 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 Problem Rheumatoid arthritis M06.9 Active Problem Edema R60.9 Active Problem Osteoarthritis of foot M19.079 Active Problem PVD (peripheral vascular disease) I73.9 Active Problem Insomnia, unspecified type G47.00 Active Assessment Dysthymia F34.1 Active Problem 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 Problem Peripheral vascular disease, unspecified I73.9 Active Problem History of cerebrovascular accident with current residual effects I69.90 Active Problem Dysphagia, unspecified dysphagia R13.10 Active Problem Hypertension I10 Active Problem Leg pain, left M79.605 Active Problem COPD (chronic obstructive pulmonary disease) J44.9 Active Medications Medication Code System Code Instructions Start Date End Date Status Dosage Montelukast Sodium [facility] [address]-74 10 mg Orally Once a day at HS 1 tablet in the evening Prozac [facility] [address]-96 20 MG Orally Once a day 3 capsules in the morning Cyclobenzaprine HCl [facility] [address]-21 5 mg Orally January 15, 2016 0.5 Tablet at Noon and 1 Tablet at bedtime Doxepin HCl [facility] 51636385021 25 MG Orally Once a day at HS 1 capsule at bedtime Plavix [facility] 36887950309 75 MG TAKE ONE TABLET BY MOUTH DAILY Cetirizine HCl [facility] [address]-06 10 MG Orally Once a day 1 tablet Hydrocodone-Acetaminophen [facility] [address]-21 10-325 MG Orally 2 times a day 1 tablet as needed Naproxen [facility] [address]-73 500 MG Orally every 12 hrs 1 tablet as needed Atrovent HFA [facility] [address]-02 17 MCG/ACT Inhalation Four times a day 2 puffs Spiriva Respimat [facility] [address]-25 2.5 MCG/ACT Inhalation Once a day October 31, 2015 1 puff Albuterol Sulfate [facility] 04515840242 (2.5 MG/3ML) 0.083% Inhalation 4 times a day as needed 3 ml Pravastatin Sodium [facility] 59917145400 10 MG Orally Once a day 1 tablet Xanax [facility] [address]-42 0.5 MG Orally Once a day January 15, 2015 1 tablet at bedtime Gabapentin [facility] 36588951845 300 MG Orally Three times a day 2 capsule Verapamil HCl CR [facility] 41045587234 120 MG Orally Once a day 1 tablet in the morning with food Nexium [facility] 95467219557 40 MG Orally Once a day 1 capsule Symbicort [facility] [address]-67 160-4.5 MCG/ACT Inhalation Twice a day October 2 puffs Ranitidine HCl [facility] 26132936281 150 MG TAKE ONE TABLET BY MOUTH TWICE DAILY Aspirin EC [facility] 39570336517 81 MG Orally Once a day 1 tablet Procedures Procedure Coding System Code Date Office Visit, Est Pt., Level 3 CPT-4 39679 January 15, 2016 [facility] VISIT ESTABLISHED PATIENT CPT-4 G0467 January 15, 2016 Vital Signs Date/Time: January 15, 2016 Cardiac Monitoring Heart Rate 60 bpm Weight 189 lbs Height 63 in BMI 33.48 Index Blood Pressure Diastolic 50 mmHg Blood Pressure Systolic 90 mmHg Results No Known Results Summary Purpose eClinicalWorks Submission
--- OUTSIDE RECORDS SUMMARY | 2016-12-30 14:48 | XMS REPORT ---
Author Author DAPHNE YUSUF Organization eClinicalWorks Address Unknown Phone Unavailable Care Team Providers Care Maintenance Aide Name Role Phone DAPHNE YUSUF CP Unavailable [...] Instructions Start Date End Date Status Dosage Levaquin [facility] [address]-51 500 MG Orally Once a day Aug 14, 2015 Aug 24, 2015 1 tablet Results No Known Results Summary Purpose eClinicalWorks Submission
--- OUTSIDE RECORDS SUMMARY | 2016-12-30 14:49 | XMS REPORT ---
Author Author DAPHNE YUSUF Organization eClinicalWorks Address Unknown Phone Unavailable Care Team Providers Care Handle Bar Assembler Name Role Phone DAPHNE YUSUF CP Unavailable [...] use of other medications V58.69 Active Medications Medication Code System Code Instructions Start Date End Date Status Dosage Hydrocodone-Acetaminophen [facility] [address]-50 10-325 MG Orally 2 times a day January 18, 2015 1 tablet as needed Results No Known Results Summary Purpose eClinicalWorks Submission
--- OUTSIDE RECORDS SUMMARY | 2016-12-30 14:49 | XMS REPORT ---
Author Author JAMES CARTAGENA Organization eClinicalWorks Address Unknown Phone Unavailable Care Team Providers Care Sanding Machine Operator Name Role Phone JAMES CARTAGENA CP Unavailable Allergies, Adverse Reactions, Alerts Substance [...] F34.1 Active Problem Atrial fibrillation I48.91 Active Assessment Rheumatoid arthritis M06.9 Active Assessment Peripheral vascular disease, unspecified I73.9 Active Assessment Atrial fibrillation I48.91 Active Problem PVD (peripheral vascular disease) I73.9 Active Problem Insomnia, unspecified type G47.00 Active Assessment Chronic bronchitis, unspecified chronic bronchitis type J42 Active Problem Dysphagia, unspecified dysphagia R13.10 Active Problem 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 Problem Leg pain, left M79.605 Active Medications Medication Code System Code Instructions Start Date End Date Status Dosage Gabapentin [facility] [address]-95 300 MG Orally Three times a day January 18, 2015 2 capsule Xanax [facility] [address]-83 0.5 MG Orally Once a day January 15, 2015 1 tablet at bedtime Protonix [facility] [address]-36 40 MG Orally Once a day Aug 03, 2015 1 tablet Spiriva Respimat [facility] [address]-22 2.5 MCG/ACT Inhalation Once a day October 31, 2015 1 puff Pravastatin Sodium [facility] 90049427649 10 MG Orally Once a day 1 tablet Plavix [facility] 48144592971 75 MG TAKE ONE TABLET BY MOUTH DAILY Aspirin EC [facility] 32338827658 81 MG Orally Once a day 1 tablet Symbicort [facility] [address]-68 160-4.5 MCG/ACT Inhalation Twice a day October 2 puffs Ranitidine HCl [facility] 16526174371 150 MG TAKE ONE TABLET BY MOUTH TWICE DAILY Albuterol Sulfate [facility] 37138697633 (2.5 MG/3ML) 0.083% Inhalation 4 times a day as needed 3 ml Hydrocodone-Acetaminophen [facility] [address]-92 10-325 MG Orally 2 times a day January 18, 2015 1 tablet as needed Doxepin HCl [facility] 18320717963 25 MG Orally Once a day at HS 1 capsule at bedtime Colace [facility] [address]-37 100 MG Orally Once a day 1 capsule as needed Verapamil HCl CR [facility] 84439001326 120 MG Orally Once a day 1 tablet in the morning with food Doxycycline Monohydrate [facility] [address]-53 100 MG Orally every 12 hrs October 23, 2015 November 02, 2015 1 tablet Prozac [facility] [address]-34 40 MG Orally Once a day 1 capsule in the morning Procedures Procedure Coding System Code Date Office Visit, Est Pt., Level 4 CPT-4 66005 October 31, 2015 [facility] VISIT ESTABLISHED PATIENT CPT-4 G0467 October 31, 2015 Vital Signs Date/Time: October 31, 2015 Temperature 98.0 F Weight 190.0 lbs Height 63 in BMI 33.65 Index Blood Pressure Diastolic 70 mmHg Blood Pressure Systolic 90 mmHg Cardiac Monitoring Heart Rate 64 bpm Results No Known Results Summary Purpose eClinicalWorks Submission
--- OUTSIDE RECORDS SUMMARY | 2016-12-30 14:50 | XMS REPORT ---
Author Author SATNAM MIKE eClinical[employer] Address Unknown Phone Unavailable Care Team Providers Care Business Continuity Planning Director Name Role Phone SATNAM MIKE CP Unavailable Allergies, Adverse Reactions, Alerts Substance [...]
--- OUTSIDE RECORDS SUMMARY | 2016-12-30 14:50 | XMS REPORT ---
Author Author DAPHNE YUSUF [facility] [place] eClinicalWorks Address Unknown Phone Unavailable Care Team Providers Care Web Analytics Specialist Name Role Phone DAPHNE YUSUF CP Unavailable Allergies, Adverse Reactions, Alerts Substance Reaction Event Type Rocephin Info Not Available Drug Allergy Problems Problem Type Condition Code Onset Dates Condition Status Problem Encounter for long-term (current) use of other medications V58.69 Active Problem Personal history of tobacco use, presenting hazards to health V15.82 Active Problem Generalized osteoarthrosis, unspecified site 715.00 Active Problem Dysphagia, unspecified dysphagia R13.10 Active Assessment Insomnia, unspecified type G47.00 Active Problem Insomnia, unspecified type G47.00 Active Assessment PVD (peripheral vascular disease) I73.9 Active Assessment 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 Problem Leg pain, left M79.605 Active Problem Hypertension 401.9 Active Problem Primary localized osteoarthrosis, ankle and foot 715.17 Active Problem PVD (peripheral vascular disease) I73.9 Active Problem 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 Problem COPD (chronic obstructive pulmonary disease) 496 Active Problem Lower limb amputation, foot V49.73 Active Assessment Dysphagia, unspecified dysphagia R13.10 Active Assessment Leg pain, left M79.605 Active Problem Insomnia, unspecified 780.52 Active Problem Dysthymic disorder 300.4 Active Problem Atrial fibrillation 427.31 Active Problem Unspecified peripheral vascular disease 443.9 Active Problem Pain in joint, site unspecified 719.40 Active Problem Rheumatoid arthritis 714.0 Active Medications Medication Code System Code Instructions Start Date End Date Status Dosage Colace [facility] [address]-82 100 MG Orally Once a day 1 capsule as needed Xanax [facility] [address]-52 0.5 MG Orally Once a day at bedtime January 15, 2015 1 tablet Nexium [facility] 06219983972 40 MG Orally Once a day 1 capsule Pravastatin Sodium [facility] [address]-23 10 MG Orally Once a day 1 tablet Ambien [facility] [address]-68 10 MG Orally Once a day May 21, 2015 1 tablet at bedtime Gabapentin [facility] [address]-26 300 MG Orally Three times a day January 18, 2015 2 capsule Verapamil HCl CR [facility] 38888516732 120 MG Orally Once a day 1 tablet in the morning with food Plavix [facility] 42817822750 75 MG TAKE ONE TABLET BY MOUTH DAILY Aspirin EC [facility] 71263641160 81 MG Orally Once a day 1 tablet Prozac [facility] 76701566826 20 MG Orally Once a day 1 capsule in the morning Hydrocodone-Acetaminophen [facility] [address]-77 10-325 MG Orally 2 times a day January 18, 2015 1 tablet as needed Naproxen [facility] [address]-15 500 MG Twice a day Jul 10, 2014 September 17, 2015 take 1 tablet (500 mg) by oral route 2 times per day with food Ranitidine HCl [facility] [address]-82 150 MG Orally Twice a day Jun 13, 2015 1 tablet Procedures Procedure Coding System Code Date Office Visit, Est Pt., Level 3 CPT-4 02816 Jun 13, 2015 [facility] VISIT ESTABLISHED PATIENT CPT-4 G0467 Jun 13, 2015 Vital Signs Date/Time: Jun 13, 2015 Cardiac Monitoring Heart Rate 60 bpm Temperature 97.8 F Height 63 in Blood Pressure Diastolic 54 mmHg Blood Pressure Systolic 84 mmHg Results No Known Results Summary Purpose eClinicalWorks Submission
--- OUTSIDE RECORDS SUMMARY | 2016-12-30 14:50 | XMS REPORT ---
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
--- OUTSIDE RECORDS SUMMARY | 2016-12-30 14:51 | XMS REPORT ---
Author Author DAPHNE YUSUF Organization eClinicalWorks Address Unknown Phone Unavailable Care Team Providers Care Math And Physics Instructor Name Role Phone DAPHNE YUSUF CP Unavailable [...] Start Date End Date Status Dosage Xanax [facility] [address]-79 0.5 MG Orally Once a day January 15, 2015 1 tablet at bedtime Results No Known Results Summary Purpose eClinicalWorks Submission
--- OUTSIDE RECORDS SUMMARY | 2016-12-30 14:52 | XMS REPORT ---
Author Author DAPHNE YUSUF Organization eClinicalWorks Address Unknown Phone Unavailable Care Team Providers Care Refinery Operator Vapor Recovery Unit Name Role Phone DAPHNE YUSUF CP Unavailable Allergies No Known Allergies Problems Problem Type Condition Code Onset Dates Condition Status Problem Dysthymia F34.1 Active Assessment Chronic pain syndrome G89.4 Active Problem Rheumatoid arthritis M06.9 Active Problem [...] Start Date End Date Status Dosage Hydrocodone-Acetaminophen [facility] [address]-28 10-325 MG Orally 2 times a day Jun 04, 2016 1 tablet as needed Results No Known Results Summary Purpose eClinicalWorks Submission
--- OUTSIDE RECORDS SUMMARY | 2016-12-30 14:52 | XMS REPORT ---
Author Author DAPHNE YUSUF Organization eClinicalWorks Address Unknown Phone Unavailable Care Team Providers Care Automation Tender Name Role Phone DAPHNE YUSUF CP Unavailable [...] Instructions Start Date End Date Status Dosage Albuterol Sulfate [facility] 02296877089 (2.5 MG/3ML) 0.083% Inhalation 4 times a day as needed 3 ml Results No Known Results Summary Purpose eClinicalWorks Submission
--- OUTSIDE RECORDS SUMMARY | 2016-12-30 14:52 | XMS REPORT ---
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 Assessment Rheumatoid arthritis with positive rheumatoid factor, involving unspecified site M05.9 Active Problem Atrial fibrillation I48.91 Active Assessment Depression, unspecified depression type F32.9 Active Problem Dysthymia F34.1 Active Problem Tobacco abuse, 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 Problem Rheumatoid arthritis M06.9 Active Problem Anemia, unspecified type D64.9 Active Problem Depression, unspecified depression type F32.9 Active Problem 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 Problem Hx of Clostridium difficile infection Z86.19 Active Problem Iron deficiency anemia, unspecified iron deficiency anemia type D50.9 Active Assessment Iron deficiency anemia, unspecified iron deficiency [...] with current residual effects I69.90 Active Medications Medication Code System Code Instructions Start Date End Date Status Dosage Xanax [facility] [address]-49 0.5 MG Orally Once a day January 15, 2015 1 tablet at bedtime Ranitidine HCl [facility] 39941261200 150 MG TAKE ONE TABLET BY MOUTH TWICE DAILY Verapamil HCl CR [facility] 48208325418 120 MG Orally Once a day 1 tablet in the morning with food Montelukast Sodium [facility] [address]-89 10 mg Orally Once a day at HS 1 tablet in the evening Cetirizine HCl [facility] [address]-62 10 MG Orally Once a day 1 tablet Vitamin C [facility] [address]-22 500 MG Orally twice a day Feb 15, 2016 1 tablet Ferrex 150 [facility] [address]-20 150 MG Orally twice a day Feb 15, 2016 1 capsule Naproxen [facility] [address]-29 500 MG Orally every 12 hrs 1 tablet as needed Aspirin EC [facility] 87426154149 81 MG Orally Once a day 1 tablet Cyclobenzaprine HCl [facility] [address]-68 5 mg Orally January 15, 2016 0.5 Tablet at Noon and 1 Tablet at bedtime Oxygen [facility] 0 2 L/NC by inhalation route all day and nite Feb 12, 2016 ... Spiriva Respimat [facility] [address]-98 2.5 MCG/ACT Inhalation Once a day October 31, 2015 1 puff Symbicort [facility] [address]-84 160-4.5 MCG/ACT Inhalation Twice a day October 2 puffs Zoloft [facility] [address]-06 50 mg Orally Once a day Mar 25, 2016 1 tablet Gabapentin [facility] 64833545480 300 MG Orally Three times a day 2 capsule Pravastatin Sodium [facility] 03598741500 10 MG Orally Once a day 1 tablet Albuterol Sulfate [facility] 27400336727 (2.5 MG/3ML) 0.083% Inhalation 4 times a day as needed 3 ml Ferrous Sulfate [facility] [address]-96 325 (65 Fe) MG Orally Once a day January 1 tablet Plavix [facility] 07110836255 75 MG TAKE ONE TABLET BY MOUTH DAILY Doxepin HCl [facility] 03519042836 25 MG Orally Once a day at HS 1 capsule at bedtime Hydrocodone-Acetaminophen [facility] [address]-40 10-325 MG Orally 2 times a day 1 tablet as needed Procedures Procedure Coding System Code Date Office Visit, Est Pt., Level 3 CPT-4 60939 Mar 25, 2016 [facility] VISIT ESTABLISHED PATIENT CPT-4 G0467 Mar 25, 2016 Vital Signs Date/Time: Mar 25, 2016 Cardiac Monitoring Heart Rate 80 bpm Weight 189.0 lbs Height 63 in BMI 33.48 Index Blood Pressure Diastolic 55 mmHg Blood Pressure Systolic 100 mmHg Results No Known Results Summary Purpose eClinicalWorks Submission
--- OUTSIDE RECORDS SUMMARY | 2016-12-30 14:52 | XMS REPORT ---
Author Author DAPHNE YUSUF Organization eClinicalWorks Address Unknown Phone Unavailable Care Team Providers Care Medical Manager Name Role Phone DAPHNE YUSUF CP [...] Start Date End Date Status Dosage Xanax [facility] [address]-78 0.5 MG Orally Once a day January 15, 2015 1 tablet at bedtime Results No Known Results Summary Purpose eClinicalWorks Submission
--- OUTSIDE RECORDS SUMMARY | 2016-12-30 14:52 | XMS REPORT ---
Author Author DAPHNE YUSUF Organization eClinicalWorks Address Unknown Phone Unavailable Care Team Providers Care Automotive Electrical Helper Name Role Phone DAPHNE YUSUF CP Unavailable Allergies No Known Allergies Problems Problem Type Condition ICD-9 Code Onset Dates Condition Status Problem Pain [...] Active Problem Atrial fibrillation 427.31 Active Medications No Known Medications Results No Known Results Summary Purpose eClinicalWorks Submission
--- OUTSIDE RECORDS SUMMARY | 2016-12-30 14:53 | XMS REPORT ---
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 512453112 Problem Iron deficiency anemia, unspecified iron deficiency anemia type D50.9 Active 22427838 Problem PVD (peripheral vascular disease) I73.9 Active 769661254 Problem Anemia, unspecified type D64.9 Active 051961418 Problem 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 026130151 Problem Hx of Clostridium difficile infection Z86.19 Active 179841444 Problem Chronic pain syndrome G89.4 Active 531453180 Problem Edema R60.9 Active 668967778 Problem Depression, unspecified depression type F32.9 Active 54079012 Problem Anxiety F41.9 Active 66774133 Problem Leg pain, left M79.605 Active 497380254 Problem Peripheral vascular disease, unspecified I73.9 Active 092301425 Problem Insomnia, unspecified type G47.00 Active 624041483 Problem Dysphagia, unspecified dysphagia R13.10 Active 30713765 Problem COPD (chronic obstructive pulmonary disease) J44.9 Active 13974409 Problem 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 813878725 Problem History of cerebrovascular accident with current residual effects I69.90 Active 783172781 Problem Atrial fibrillation I48.91 Active 97605538 Problem Hypertension I10 Active 32356092 Problem Dysthymia F34.1 Active 51116392 ALLERGIES Unknown Allergies SOCIAL HISTORY No smoking Hx information available PLAN OF CARE VITAL SIGNS MEDICATIONS Medication Instructions Dosage Frequency Start Date End Date Duration Status Cyclobenzaprine HCl 5 mg 0.5 Tablet at Noon and 1 Tablet at bedtime 05 Jan, 2016 Active Gabapentin 300 MG Orally Three times a day 2 capsule 8h 30 Active Ferrous Sulfate 325 (65 Fe) MG Orally Once a day 1 tablet 24h Jan, 30 day(s) Active Prozac 20 MG Orally Once a day 3 capsules in the morning 24h 90 days Active Ranitidine HCl 150 MG TAKE ONE TABLET BY MOUTH TWICE DAILY 30 Active Montelukast Sodium 10 mg Orally Once a day at HS 1 tablet in the evening Active Doxepin HCl 25 MG Orally Once a day at HS 1 capsule at bedtime 30 Active Plavix 75 MG TAKE ONE TABLET BY MOUTH DAILY 30 Active Albuterol Sulfate (2.5 MG/3ML) 0.083% Inhalation 4 times a day as needed 3 ml 30 days Active Spiriva Respimat 2.5 MCG/ACT Inhalation Once a day 1 puff 24h Oct, Active Vitamin C 500 MG Orally twice a day 1 tablet 12h Feb, 30 day(s ) Active Symbicort 160-4.5 MCG/ACT Inhalation Twice a day 2 puffs 12h Oct, Active Oxygen 2 L/NC by inhalation route all day and nite ... Feb, Active Aspirin EC 81 MG Orally Once a day 1 tablet 24h 30 Active Hydrocodone-Acetaminophen 10-325 MG Orally 2 times a day 1 tablet as needed 12h 28 days Active Ferrex 150 150 MG Orally twice a day 1 capsule 12h Feb, 30 day( s) Active Pravastatin Sodium 10 MG Orally Once a day 1 tablet 24h 30 Active Naproxen 500 MG Orally every 12 hrs 1 tablet as needed 12h 30 Active Verapamil HCl CR 120 MG Orally Once a day 1 tablet in the morning with food 24h 90 Active Cetirizine HCl 10 MG Orally Once a day 1 tablet 24h Active Xanax 0.5 MG Orally Once a day 1 tablet at bedtime 24h Jan, 28 days Active RESULTS No Results PROCEDURES No Known procedures IMMUNIZATIONS No Known Immunizations
--- OUTSIDE RECORDS SUMMARY | 2016-12-30 14:53 | XMS REPORT ---
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
--- OUTSIDE RECORDS SUMMARY | 2016-12-30 14:53 | XMS REPORT ---
Author Author DAPHNE YUSUF Organization eClinicalWorks Address Unknown Phone Unavailable Care Team Providers Care Certified Industrial Hygienist Name Role Phone DAPHNE YUSUF CP Unavailable [...] Start Date End Date Status Dosage Hydrocodone-Acetaminophen [facility] [address]-57 10-325 MG Orally 2 times a day January 18, 2015 1 tablet as needed Xanax [facility] [address]-44 0.5 MG Orally Once a day at bedtime January 15, 2015 1 tablet Results No Known Results Summary Purpose eClinicalWorks Submission
--- OUTSIDE RECORDS SUMMARY | 2016-12-30 14:53 | XMS REPORT ---
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
--- OUTSIDE RECORDS SUMMARY | 2016-12-30 14:53 | XMS REPORT ---
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 [address]-91 160-4.5 MCG/ACT Inhalation Twice a day October 2 puffs Spiriva Respimat [facility] [address]-40 2.5 MCG/ACT Inhalation Once a day October 31, 2015 1 puff Results No Known Results Summary Purpose eClinicalWorks Submission
--- OUTSIDE RECORDS SUMMARY | 2016-12-30 14:53 | XMS REPORT ---
Author Author DAPHNE YUSUF Organization eClinicalWorks Address Unknown Phone Unavailable Care Team Providers Care Degreaser Operator Name Role Phone DAPHNE YUSUF CP [...] Start Date End Date Status Dosage Xanax [facility] [address]-15 0.5 MG Orally Once a day at bedtime January 15, 2015 1 tablet Hydrocodone-Acetaminophen [facility] [address]-58 10-325 MG Orally 2 times a day January 18, 2015 May 09, 2015 1 tablet as needed Results No Known Results Summary Purpose eClinicalWorks Submission
--- OUTSIDE RECORDS SUMMARY | 2016-12-30 14:54 | XMS REPORT ---
Author Author DAPHNE YUSUF Organization eClinicalWorks Address Unknown Phone Unavailable Care Team Providers Care Nut Sorter Operator Name Role Phone DAPHNE YUSUF CP [...]
--- OUTSIDE RECORDS SUMMARY | 2016-12-30 14:54 | XMS REPORT ---
Author Author DAPHNE YUSUF Organization eClinicalWorks Address Unknown Phone Unavailable Care Team Providers Care Punchboard Stuffer Name Role Phone DAPHNE YUSUF CP Unavailable [...] nontraumatic amputation of 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 Active Medications Medication Code System Code Instructions Start Date End Date Status Dosage Ferrous Sulfate [facility] [address]-20 325 (65 Fe) MG Orally Once a day January 1 tablet Results No Known Results Summary Purpose eClinicalWorks Submission
--- OUTSIDE RECORDS SUMMARY | 2016-12-30 14:54 | XMS REPORT ---
Author Author DAPHNE YUSUF Organization eClinicalWorks Address Unknown Phone Unavailable Care Team Providers Care Bobbin Sorter Name Role Phone DAPHNE YUSUF CP Unavailable [...] Start Date End Date Status Dosage Hydrocodone-Acetaminophen [facility] [address]-49 10-325 MG Orally 2 times a day January 18, 2015 1 tablet as needed Results No Known Results Summary Purpose eClinicalWorks Submission
--- OUTSIDE RECORDS SUMMARY | 2016-12-30 14:54 | XMS REPORT ---
Author Author DAPHNE YUSUF Organization eClinicalWorks Address Unknown Phone Unavailable Care Team Providers Care Mine Manager Name Role Phone DAPHNE YUSUF CP [...]
--- OUTSIDE RECORDS SUMMARY | 2016-12-30 14:54 | XMS REPORT ---
Author Author DAPHNE YUSUF Organization eClinicalWorks Address Unknown Phone Unavailable Care Team Providers Care Director Of Real Estate Name Role Phone DAPHNE YUSUF CP Unavailable [...] Start Date End Date Status Dosage Xanax [facility] [address]-16 0.5 MG Orally Once a day at bedtime January 15, 2015 1 tablet Hydrocodone-Acetaminophen [facility] [address]-44 10-325 MG Orally 2 times a day January 18, 2015 Apr 12, 2015 1 tablet as needed Results No Known Results Summary Purpose eClinicalWorks Submission
--- OUTSIDE RECORDS SUMMARY | 2016-12-30 14:54 | XMS REPORT ---
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 603864117 Problem Osteoarthritis of foot M19.079 Active 898095140 Problem Chronic pain syndrome G89.4 Active 145541086 Problem Edema R60.9 Active 579074764 Problem Rheumatoid arthritis, involving unspecified site, unspecified rheumatoid factor presence M06.9 Active 07370979 Problem Other chronic pain G89.29 Active 57737852 Problem Dysphagia, unspecified dysphagia R13.10 Active 67879202 Problem Insomnia, unspecified type G47.00 Active 630638422 Problem PVD (peripheral vascular disease) I73.9 Active 920171463 Problem Depression, unspecified depression type F32.9 Active 99799377 Problem Anxiety F41.9 Active 98183028 Problem Iron deficiency anemia, unspecified iron deficiency anemia type D50.9 Active 54428231 Problem Anemia, unspecified type D64.9 Active 038450343 Problem History of cerebrovascular accident with current residual effects I69.90 Active 205074009 Problem Hypertension I10 Active 79223244 Problem Leg pain, left M79.605 Active 703884818 Problem Peripheral vascular disease, unspecified I73.9 Active 979657685 Problem Atrial fibrillation I48.91 Active 36635325 Problem Dysthymia F34.1 Active 95799626 Problem COPD (chronic obstructive pulmonary disease) J44.9 Active 95891055 Problem 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 Diff Drug Allergy Jun, Active SOCIAL HISTORY No smoking Hx information available PLAN OF CARE Activity Details Pending Test Xray : Chest (IN HOUSE) 3 Months,Reason: VITAL SIGNS Height 63 in 2016-06-23 Weight 166.5 lbs 2016-06-23 Heart Rate 72 bpm 2016-06-23 Respiratory Rate 18 2016-06-23 BMI 29.49 kg/m2 2016-06-23 Blood pressure systolic 120 mmHg 2016-06-23 Blood pressure diastolic 62 mmHg 2016-06-23 MEDICATIONS Medication Instructions Dosage Frequency Start Date End Date Duration Status Aspirin EC 81 MG Orally Once a day 1 tablet 24h 30 Active Spiriva Respimat 2.5 MCG/ACT Inhalation Once a day 1 puff 24h Oct, Active Ferrous Sulfate 325 (65 Fe) MG Orally Once a day 1 tablet 24h Jan, 30 day(s) Active Pravastatin Sodium 10 MG TAKE ONE TABLET BY MOUTH ONCE DAILY 30 Active Vancomycin HCl 50 MG/ML Orally every 6 hrs 2.5 ml 6h Jun, Jun, Active Gabapentin 300 MG TAKE TWO CAPSULES BY MOUTH THREE TIMES DAILY 30 Active Vitamin C 500 MG Orally twice a day 1 tablet Feb, 30 day(s ) Active Ferrex 150 150 MG Orally twice a day 1 capsule 12h Feb, 30 day( s) Active Zoloft 50 mg Orally Once a day 1 tablet 24h 13 Mar, 2016 Active Ranitidine HCl 150 MG TAKE ONE TABLET BY MOUTH TWICE DAILY 30 Active Multi Adult Gummies - Active Montelukast Sodium 10 mg Orally Once a day at HS 1 tablet in the evening Active Cyclobenzaprine HCl 5 mg 0.5 Tablet at Noon and 1 Tablet at bedtime Jan, Active Symbicort 160-4.5 MCG/ACT Inhalation Twice a day 2 puffs 12h Oct, Active Sertraline HCl 50 MG TAKE ONE TABLET BY MOUTH ONCE DAILY 90 Active Omeprazole 20 mg Orally Once a day 1 capsules 24h Active Oxygen 2 L/NC by inhalation route all day and nite ... Feb, Active Scopolamine 1 MG/3DAYS Transdermal every 72 hrs 1 patch to skin as needed November, Active Probiotic - Active Verapamil HCl CR 120 MG Orally Once a day 1 tablet in the morning with food 24h 90 Active Vancomycin HCl - Orally 2.5ml every 6 hours 250mg/5cc Jun, Jun, 19 days Active Levaquin 750 MG Orally Once a day 1 tablet 24h Jun, Jun, Active Atrovent HFA 17 MCG/ACT Inhalation Four times a day 2 puffs 6h Active Plavix 75 MG TAKE ONE TABLET BY MOUTH DAILY 30 Active Albuterol Sulfate (2.5 MG/3ML) 0.083% Inhalation every 6 hrs 3 ml 6h 30 days Active Protonix 40 MG Orally Once a day 1 tablet 24h Jul, Active Hydrocodone-Acetaminophen 10-325 MG Orally 2 times a day 1 tablet as needed 12h May, 28 days Active Cetirizine HCl 10 MG Orally Once a day 1 tablet 24h Active Hydroxychloroquine Sulfate 200 MG TAKE 1 TABLET BY MOUTH ONCE DAILY FOR 1 WEEK AND THEN TAKE 1 TABLET BY MOUTH TWICE DAILY. 37 Active RESULTS Name Result Date Reference Range Xray : Chest (IN HOUSE) 2016-06-23 PROCEDURES Procedure Date Ordered Related Diagnosis Body Site CHEST X-RAY Jun 23, 2016 [facility] VISIT ESTABLISHED PATIENT Jun 23, 2016 Office Visit, Est Pt., Level 3 Jun 23, 2016 IMMUNIZATIONS No Known Immunizations
--- OUTSIDE RECORDS SUMMARY | 2016-12-30 14:54 | XMS REPORT ---
Author Author DAPHNE YUSUF Organization [employer] Address Unknown Phone Unavailable Care Team Providers Care Special Services Coordinator Name Role Phone DAPHNE YUSUF CP [...] Date End Date Status Dosage Doxepin HCl [facility] [address]-64 25 MG Orally Once a day at HS Jun 18, 2015 1 capsule at bedtime Results No Known Results Summary Purpose [employer] Submission
--- OUTSIDE RECORDS SUMMARY | 2016-12-30 14:55 | XMS REPORT ---
Author Author DAPHNE YUSUF Organization [employer] Address Unknown Phone Unavailable Care Team Providers Care Director Skills Name Role Phone DAPHNE YUUSF CP Unavailable Allergies No Known Allergies Problems [...]
== END 2016-12-29 12:57 | DRG 470 ==
LOC: 4TH 05:57 → SURG 05:58 → 4TH 10:27
PROVIDERS: ADMIT Orthopaedic Surgery; ATTEND Orthopaedic Surgery
PROC: 0SRC0J9 Replacement of Right Knee Joint with Synthetic Substitute, Cemented, Open Approach (ICD-10-PCS; principal; 2016-12-24 07:20)
DX: M17.11 Unilateral primary osteoarthritis, right knee (principal); J43.9 Emphysema, unspecified; I48.91 Unspecified atrial fibrillation; I47.1 Supraventricular tachycardia; I10 Essential (primary) hypertension; I69.351 Hemiplegia and hemiparesis following cerebral infarction affecting right dominant side; I69.320 Aphasia following cerebral infarction; I70.209 Unspecified atherosclerosis of native arteries of extremities, unspecified extremity; E78.5 Hyperlipidemia, unspecified; G57.92 Unspecified mononeuropathy of left lower limb; F41.9 Anxiety disorder, unspecified; D64.9 Anemia, unspecified; F32.9 Major depressive disorder, single episode, unspecified; F03.90 Unspecified dementia, unspecified severity, without behavioral disturbance, psychotic disturbance, mood disturbance, and anxiety; G47.00 Insomnia, unspecified; K21.9 Gastro-esophageal reflux disease without esophagitis; G89.29 Other chronic pain; Z99.81 Dependence on supplemental oxygen; Z95.820 Peripheral vascular angioplasty status with implants and grafts; Z95.828 Presence of other vascular implants and grafts; Z87.891 Personal history of nicotine dependence; Z89.432 Acquired absence of left foot; Z85.828 Personal history of other malignant neoplasm of skin
CPT/HCPCS: 36415; 73560; 80048; 80053; 84484; 85007; 85014; 85018; 85025; 85027; 87324; 87449; 93005; 94640; 94664; 94760

== ENCOUNTER 2017-01-06 22:39 | Inpatient (IN) | payer MEDICARE, MEDICAID ==
[~2017-01-06] VITALS: Ht 157.5 cm; Wt 88.9 kg
[~2017-01-06 22:39] MED LIST changes: +OXYC-197 PO
--- OUTSIDE RECORDS SUMMARY | 2017-01-06 22:46 | XMS REPORT | Continuity of Care Document ---
Author Author [facility] Organization [facility] Address Unknown Phone Unavailable Care Team Providers Care Ophthalmic Pathologist Name Role Phone PCP Unavailable Source Comments Some departments are not documenting in the electronic medical record. 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 Social History Tobacco Use Types Packs/Day Years Used Date Former Smoker Quit: 05/28/2013 Last Filed Vital Signs Vital Sign Reading Time Taken Blood Pressure 146/59 07/04/2013 2:19 PM BUSINESS RESILIENCY MANAGER Pulse 73 07/04/2013 2:19 PM BUSINESS RESILIENCY MANAGER Temperature 35.9 C (96.6 F) 07/04/2013 2:17 PM BUSINESS RESILIENCY MANAGER Respiratory Rate 14 07/04/2013 2:17 PM BUSINESS RESILIENCY MANAGER Height 1.6 m (5' 3") 07/04/2013 2:17 PM BUSINESS RESILIENCY MANAGER Weight 58.968 kg (130 lb) 07/04/2013 2:17 PM BUSINESS RESILIENCY MANAGER Body Mass Index 23.03 07/04/2013 2:17 PM BUSINESS RESILIENCY MANAGER Oxygen Saturation - - Plan of Care Health Maintenance Due Date Last Done Comments Hepatitis C Screening 1949 Physical (Comprehensive) 1956 Exam Pertussis Vaccine 1960 Tetanus Vaccine 1966 Breast Cancer Screening 1989 Colorectal Cancer 1999 Screening Shingles Vaccine 2009 Osteoporosis Screening 2014 Prevnar/Pneumovax (#1) 2014 Influenza Vaccine 03/13/2017 Results from Last 3 Months Not on file
[2017-01-06] MEDS ORDERED: RT-ALBUTEROL/IPRATROPIUM 3 ML (DUONEB) VIAL INH ONE (23:30)
[2017-01-06] MEDS ORDERED: IBUPROFEN 800 MG (MOTRIN) TAB PO ONE (23:30)
[2017-01-06] MEDS ORDERED: ACETAMINOPHEN 500 MG TAB (TYLENOL) PO ONE (23:30)
[2017-01-06 23:41] LABS: BASOPHILS % (AUTO) 0 % (0-10); EOSINOPHILS # (AUTO) 0.1 10^3/uL (0.0-0.3); EOSINOPHILS % (AUTO) 1 % (0-10); LYMPHOCYTES # (AUTO) 3.2 X 10^3 (1.0-4.0); LYMPHOCYTES % (AUTO) 23 % (12-44); MEAN CORPUSCULAR HEMOGLOBIN 30 PG (25-34); MEAN CORPUSCULAR HGB CONC 32 G/DL (32-36); MEAN CORPUSCULAR VOLUME 96 FL (80-99); MEAN PLATELET VOLUME 9.2 FL (7.4-10.4); MONOCYTES # (AUTO) 1.5 X 10^3 (0.0-1.0); MONOCYTES % (AUTO) 11 % (0-12); NEUTROPHILS # (AUTO) 9.1 X 10^3 (1.8-7.8); NEUTROPHILS % (AUTO) 66 % (42-75); PLATELET COUNT 595 10^3/uL (130-400); RED BLOOD COUNT 3.41 10^6/uL (4.35-5.85); RED CELL DISTRIBUTION WIDTH 15.3 % (10.0-14.5); WHITE BLOOD COUNT 13.9 10^3/uL (4.3-11.0)
--- NOTE | 2017-01-06 23:45 | ED Respiratory ---
General Stated Complaint: FEVER Source: patient (LIMITED HISTORIAN), family (DAUGHTER GIVES MOST INFORMATION), old records History of Present Illness Time seen by provider: 23:15 Initial Comments PT ARRIVES VIA POV FROM [facility]--DAUGHTER BROUGHT HER HERE ON HER OWN. NO SENIOR LIVING REPORT OR RECORDS PT HAD RIGHT TOTAL KNEE REPLACEMENT BY DR. MADERA 2 WEEKS AGO, AND WENT TO [facility] FOR REHAB ON 12/29/16--PT HAS NOT BEEN VERY ACTIVE/COMPLIANT WITH THERAPY THERE, ACCORDING TO DAUGHTER AHMET WERE REMOVED TODAY PT HAS HISTORY OF COPD/EMPHYSEMA AND NORMALLY TAKES NEB TREATMENTS /INHALERS QID AND WEARS HOME O2, WHEN SHE WAS AT HOME PRIOR TO THIS SURGERY. DAUGHTER STATES THAT PT HAS NOT HAD EITHER SINCE SHE HAS BEEN AT [facility], ALTHOUGH PT STATES SHE DID HAVE A NEBULIZER TREATMENT THIS MORNING. PT HAS A CHRONIC COUGH, BUT IS WORSE TODAY--IS VERY WET/LOOSE BUT IS NON- PRODUCTIVE PT HAS HAD INCREASED SHORTNESS OF BREATH TODAY PT HAD FEVER OF 104 AT SENIOR LIVING PRIOR TO ARRIVAL--NOT TREATED, PER DAUGHTER HAS HAD SLIGHT CHEST DISCOMFORT, MOSTLY WITH COUGHING AND DEEP BREATHING O2 SAT 82% ON ROOM AIR ON ARRIVAL TO ER--UP TO MID 90'S ON O2 AT 4L/NC PCP: VANDANA-CLEMENTINA, MANAGER WEALTH MANAGEMENT DAPHNE YUSUF/DR. RIVAS Allergies and Home Medications Allergies Coded Allergies: levofloxacin (Verified Allergy, Severe, C-DIFF, 12/17/16) ceftriaxone (Verified Allergy, Unknown, 12/17/16) Home Medications Albuterol Sulfate 2.5 Mg/3 Ml Vial.neb, 2.5 MG NEB Q6H PRN for SHORTNESS OF BREATH, (Reported) Alprazolam 0.5 Mg Tablet, 0.5 MG PO HS, #30 Prescribed by: WES LEHMAN on 12/29/16 1039 Ascorbate Calcium 500 Mg Tablet, 1,000 MG PO DAILY, (Reported) Aspirin 81 Mg Tablet.dr, 81 MG PO HS, (Reported) Budesonide/Formoterol Fumarate 10.2 Gm Hfa.aer.ad, 2 PUFF PO BID, (Reported) Cetirizine HCl 10 Mg Tablet, 10 MG PO DAILY, (Reported) Cholecalciferol (Vitamin D3) 1,000 Unit Tablet, 1,000 UNIT PO DAILY, (Reported) Diclofenac Sodium 100 Gm Gel..gram., 100 GM TP BID, (Reported) Doxepin HCl 25 Mg Capsule, 25 MG PO HS, (Reported) Esomeprazole Magnesium 40 Mg Cap, 40 MG PO DAILY, (Reported) Etanercept 50 Mg/1 Ml Syringe, 50 MG INJ Tu, (Reported) Gabapentin 300 Mg Capsule, 600 MG PO TID, (Reported) TAkES 2 (300 MG) CAPSULES L.acidoph & Paracasei,B.lactis 1 Each Capsule, 1 CAP PO BID, (Reported) Montelukast Sodium 10 Mg Tablet, 10 MG PO DAILY, (Reported) Multivitamin 1 Each Tab.chew, 1 EACH PO BID, (Reported) Oxycodone HCl/Acetaminophen 1 Each Tablet, 1 EACH PO Q4H, #60 Prescribed by: SABINO MADERA on 12/24/16 1007 Pravastatin Sodium 10 Mg Tablet, 10 MG PO HS, (Reported) Ranitidine HCl 150 Mg Tablet, 150 MG PO BID, (Reported) Sertraline HCl 50 Mg Tablet, 50 MG PO DAILY, (Reported) Tiotropium [place] 4 Gm Mist.inhal, 1 PUFF PO DAILY, (Reported) Verapamil HCl 120 Mg Tablet.er, 120 MG PO DAILY, (Reported) Constitutional: fever, malaise, weakness EENTM: no symptoms reported Respiratory: see HPI, cough, short of breath Cardiovascular: see HPI, chest pain, other (SWELLING TO RIGHT KNEE AND LEG) Gastrointestinal: no symptoms reported Genitourinary: no symptoms reported Musculoskeletal: see HPI Skin: other (HAD AHMET REMOVED TODAY FROM RIGHT KNEE) Psychiatric/Neurological: No Symptoms Reported Hematologic/Lymphatic: No Symptoms Reported Immunological/Allergic: no symptoms reported Past Wdbtkcg-Pknjxr-Gnfquq Hx Patient Social History Type Used: Cigarettes Former Smoker/When Quit: Feb 16, 2014 2nd Hand Smoke Exposure: No Recent Foreign Travel: No Contact w/Someone Who Travel: No Recent Hopitalizations: No Immunizations Up To Date Tetanus Booster (TDap): More than 5yrs PED Vaccines UTD: Yes Date of Pneumonia Vaccine: Aug 05, 2013 Date of Influenza Vaccine: Apr 12, 2016 Seasonal Allergies Seasonal Allergies: Yes Surgeries HX Surgeries: Yes (RIGHT TOTAL HIP; BILATERAL LEG STENTS AND VASCULAR PROCEDURES; RIGHT TOTAL KNEE REPLACEMENT 12/2016; PARTIAL LEFT FOOT AMPUTATION; ENDOSCOPIES) Surgeries: Joint Replacement, Orthopedic, Vascular Surgery Respiratory Hx Respiratory Disorders: Yes (HOME O2 AT HS AND PRN) Respiratory Disorders: COPD, Emphysema Cardiovascular Hx Cardiac Disorders: Yes (CAROTID DISEASE--COMPLETE OCCLUSION OF LEFT CAROTID) Cardiac Disorders: Peripheral Vascular Neurological Hx Neurological Disorders: Yes (DYSPHAGIA, DYSARTHRIA, RIGHT SIDE WEAKNESS POST CVA) Neurological Disorders: Dementia, Stroke Reproductive System Hx Reproductive Disorders: No Sexually Transmitted Disease: No HIV/AIDS: No Female Reproductive Disorders: Denies Genitourinary Hx Genitourinary Disorders: No Gastrointestinal Hx Gastrointestinal Disorders: Yes Gastrointestinal Disorders: Gastroesophageal Reflux, Pancreatitis, Polyps, C- Diff Musculoskeletal Hx Musculoskeletal Disorders: Yes (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 ) Musculoskeletal Disorders: Arthritis, Rheumatoid Arthritis Endocrine Hx Endocrine Disorders: No HEENT HX ENT Disorders: Yes HEENT Disorders: Dysphagia, Tinnitis Loss of Vision: Bilateral Hearing Impairment: Denies Cancer Hx Cancer: No Psychosocial Hx Psychiatric Problems: Yes Behavioral Health Disorders: Sleep Difficulties, Anxiety, Depression Integumentary HX Skin/Integumentary Disorder: No Blood Transfusions Hx Blood Disorders: No Adverse Reaction to a Blood Tr: No Family Medical History Significant Family History: Heart Disease Family Medial History: Cancer 09 SISTER Family history: Arthritis 09 BROTHER 09 SISTER Family history: Cardiovascular disease 09 SISTER Family history: Thyroid disorder 09 SISTER Malignant neoplasm of lung 09 SISTER Physical Exam Vital Signs Vital Sign - Last 12Hours 01/06/17 01/06/17 23:00 23:05 Temp 101.2 Pulse 86 Resp 20 B/P (MAP) 138/53 Pulse Ox 82 O2 Delivery Room Air O2 Flow Rate 4.00 Capillary Refill : General Appearance: no apparent distress (FREQUENT LOOSE/WET COUGH--NON PRODUCTIVE), obese HEENT: normal ENT inspection Neck: normal inspection Respiratory: no respiratory distress, no accessory muscle use, rales, rhonchi, wheezing Cardiovascular: regular rate, rhythm, no murmur Gastrointestinal: non tender, soft Extremities: other (RIGHT KNEE AND THIGH WITH MODERATE SWELLING, WARMTH AND ERYTHEMA: MILDER SWELLING TO RIGHT LOWER LEG WITH NO ERYTHEMA BELOW THE KNEE. FOOT IS WARM AND PINK WITH GOOD CAPILLARY REFILL. ) Neurologic/Psychiatric: alert, oriented x 3, other (SOME EXPRESSIVE APHASIA/ DYSARTHRIA; SOMEWHAT LETHARGIC; ) Skin: normal color, warm/dry, other (RIGHT KNEE WOUND IS INTACT WITH STERI STRIPS IN PLACE. PT WITH ERYTHEMA AND WARMTH TO ENTIRE RIGHT KNEE AND THIGH.) Focused Exam Lactic Acid Level Laboratory Tests Test 01/06/17 23:33 Lactic Acid Level 0.80 MMOL/L (0.50-2.00) Progress/Results/Core Measures Results/Orders Lab Results Laboratory Tests Test 01/06/17 23:31 01/06/17 23:33 Range/Units White Blood Count 13.9 H 4.3-11.0 10^3/uL Red Blood Count 3.41 L 4.35-5.85 10^6/uL Hemoglobin 10.3 L 11.5-16.0 G/DL Hematocrit 33 L 35-52 % Mean Corpuscular Volume 96 80-99 FL Mean Corpuscular Hemoglobin 30 25-34 PG Mean Corpuscular Hemoglobin Concent 32 32-36 G/DL Red Cell Distribution Width 15.3 H 10.0-14.5 % Platelet Count 595 H 130-400 10^3/uL Mean Platelet Volume 9.2 7.4-10.4 FL Neutrophils (%) (Auto) 66 42-75 % Lymphocytes (%) (Auto) 23 12-44 % Monocytes (%) (Auto) 11 0-12 % Eosinophils (%) (Auto) 1 0-10 % Basophils (%) (Auto) 0 0-10 % Neutrophils # (Auto) 9.1 H 1.8-7.8 X 10^3 Lymphocytes # (Auto) 3.2 1.0-4.0 X 10^3 Monocytes # (Auto) 1.5 H 0.0-1.0 X 10^3 Eosinophils # (Auto) 0.1 0.0-0.3 10^3/uL Basophils # (Auto) 0.0 0.0-0.1 10^3/uL Prothrombin Time 13.8 12.2-14.7 SEC INR Comment 1.1 0.8-1.4 Activated Partial Thromboplast Time 33 24-35 SEC Sodium Level 140 135-145 MMOL/L Potassium Level 4.2 3.6-5.0 MMOL/L Chloride Level 103 98-107 MMOL/L Carbon Dioxide Level 27 21-32 MMOL/L Anion Gap 10 5-14 MMOL/L Blood Urea Nitrogen 14 7-18 MG/DL Creatinine 0.81 0.60-1.30 MG/DL Estimat Glomerular Filtration Rate > 60 BUN/Creatinine Ratio 17 Glucose Level 113 H 70-105 MG/DL Calcium Level 9.0 8.5-10.1 MG/DL Magnesium Level 1.7 L 1.8-2.4 MG/DL Total Bilirubin 1.1 H 0.1-1.0 MG/DL Aspartate Amino Transf (AST/SGOT) 20 5-34 U/L Alanine Aminotransferase (ALT/SGPT) 20 0-55 U/L Alkaline Phosphatase 111 40-136 U/L Total Creatine Kinase 54 29-168 U/L Creatine Kinase MB 0.8 <6.6 NG/ML Troponin I < 0.30 <0.30 NG/ML B-Type Natriuretic Peptide 183.0 H <100.0 PG/ML Total Protein 7.8 6.4-8.2 GM/DL Albumin 3.3 3.2-4.5 GM/DL Lactic Acid Level 0.80 0.50-2.00 MMOL/L My Orders Orders - AVTAR WILDER DO Saline Lock/Iv-Start (01/06/17 23:19) Ekg Tracing (01/06/17 23:19) O2 (01/06/17 23:19) Monitor-Rhythm Ecg Trace Only (01/06/17 23:19) BNP (01/06/17 23:19) Cbc With Automated Diff (01/06/17 23:19) Comprehensive Metabolic Panel (01/06/17 23:19) Creatine Kinase (01/06/17 23:19) Creatine Kinase Mb (01/06/17 23:19) Lactic Acid Analyzer (01/06/17 23:19) Magnesium (01/06/17 23:19) Protime With Inr (01/06/17 23:19) Partial Thromboplastin Time (01/06/17 23:19) Troponin I (01/06/17 23:19) Ua Culture If Indicated (01/06/17 23:19) Blood Culture (01/06/17 23:19) Chest 1 View, Ap/Pa Only (01/06/17 23:19) Albuterol/Ipra Inhalation Soln (Duoneb I (01/06/17 23:30) Rt Request For Service (01/06/17 23:19) Svn Sm Volume Nebulizer Rt-Rfs (01/06/17 23:19) Acetaminophen Tablet (Tylenol Tablet) (01/06/17 23:30) Ibuprofen Tablet (Motrin Tablet) (01/06/17 23:30) Albuterol/Ipra Inhalation Soln (Duoneb I (01/07/17 00:00) Saline Lock/Iv-Start (01/06/17 23:53) Ns Iv 1000 Ml (Sodium Chloride 0.9%) (01/06/17 23:53) Piperacillin Sodium/Tazobactam (Zosyn Vi (01/07/17 00:15) Medications Given in ED Current Medications Medications Dose Ordered Sig/Terrance Route Start Time Stop Time Status Last Admin Dose Admin Acetaminophen 1,000 mg ONCE ONCE PO 01/06/17 23:30 01/06/17 23:31 DC 01/06/17 23:36 1,000 MG Albuterol/ Ipratropium 3 ml ONCE ONCE INH 01/06/17 23:30 01/06/17 23:31 DC 01/06/17 23:28 3 ML Albuterol/ Ipratropium 3 ml ONCE ONCE INH 01/07/17 00:00 01/07/17 00:01 DC 01/06/17 23:43 3 ML Ibuprofen 800 mg ONCE ONCE PO 01/06/17 23:30 01/06/17 23:31 DC 01/06/17 23:36 800 MG Piperacillin Sod/ Tazobactam Sod 4.5 gm/Sodium Chloride 100 ml @ 200 mls/hr ONCE ONCE IV 01/07/17 00:15 01/07/17 00:44 DC 01/07/17 00:16 200 MLS/HR Sodium Chloride 1,000 ml @ 0 mls/hr Q0M ONCE IV 01/06/17 23:53 01/06/17 23:55 DC 01/07/17 00:12 999 MLS/HR Vital Signs/I&O Vital Sign - Last 12Hours 01/06/17 01/06/17 01/06/17 01/06/17 23:00 23:05 23:28 23:36 Temp 101.2 101.2 Pulse 86 Resp 20 B/P (MAP) 138/53 Pulse Ox 82 95 97 O2 Delivery Room Air Nasal Cannula Nasal Cannula O2 Flow Rate 4.00 4.00 01/06/17 23:43 Pulse Ox 97 O2 Delivery Nasal Cannula O2 Flow Rate 4.00 Progress Note : Progress Note BP DROPPED TO 90'S SYSTOLIC, UP WITH FLUIDS O2 SATS UP TO MID TO UPPER 90'S WITH O2 AND NEB TREATMENTS. ECG Initial ECG Impression Time: 23:15 Initial ECG Rate: 82 Initial ECG Rhythm: Normal Sinus Initial ECG Impression: Normal Diagnostic Imaging Comments CXR--MILD CHF /PULMONARY EDEMA ? , LEFT PERIHILAR AND RLL PATCHY INFILTRATES-- PENDING RADIOLOGIST REVIEW Reviewed: Reviewed by Me Departure Communication Progress Notes 0015--SPOKE WITH DR. LUNA, GAME FARM HELPER FOR [facility]--ACCEPTS PT FOR ADMIT. ANTIBIOTIC RECOMMENDATIONS NOTED. Impression Impression: Primary Impression: Severe sepsis Additional Impressions: PNEUMONIA WITH HYPOXIA COPD (chronic obstructive pulmonary disease) Cellulitis of right leg without foot Postoperative wound infection Disposition: ADMITTED INPATIENT Condition: Improved Decision to Admit Reason: Admit from ER (General) Decision to Admit/Date: Jan 07, 2017 Time/Decision to Admit Time: 00:15 Departure-Patient Inst. Referrals: MIKHAIL RIVAS MD (PCP) Primary Care Physician DAPHNE YUSUF (Family) Primary Care Physician AVTAR WILDER DO Jan 06, 2017 23:45
[2017-01-06 23:53] LABS: INR 1.1 (0.8-1.4); PROTHROMBIN TIME PATIENT 13.8 SEC (12.2-14.7)
[2017-01-06] MEDS ORDERED: NS IV 1000 ML 1,000 ML IV ONE (23:53)
[2017-01-07] VITALS (13 sets, daily range): BP systolic 95–149; BP diastolic 43–73
[2017-01-07] MEDS ORDERED: RT-ALBUTEROL/IPRATROPIUM 3 ML (DUONEB) VIAL INH ONE
[2017-01-07 00:05] LABS: ALANINE AMINOTRANSFERASE 20 U/L (0-55); ALBUMIN 3.3 GM/DL (3.2-4.5); ANION GAP 10 MMOL/L (5-14); ASPARTATE AMINO TRANSFERASE 20 U/L (5-34); BILIRUBIN,TOTAL 1.1 MG/DL (0.1-1.0); BLOOD UREA NITROGEN 14 MG/DL (7-18); BUN/CREATININE RATIO 17; CARBON DIOXIDE 27 MMOL/L (21-32); CHLORIDE 103 MMOL/L (98-107); CREATINE KINASE 54 U/L (29-168); CREATININE SERUM 0.81 MG/DL (0.60-1.30); GFR ESTIMATED > 60; GLUCOSE 113 MG/DL (70-105); MAGNESIUM 1.7 MG/DL (1.8-2.4); POTASSIUM 4.2 MMOL/L (3.6-5.0); SODIUM 140 MMOL/L (135-145); TOTAL PROTEIN 7.8 GM/DL (6.4-8.2)
[2017-01-07 00:14] LABS: TROPONIN I < 0.30 NG/ML (<0.30)
[2017-01-07] MEDS ORDERED: PIPERACILLIN SODIUM/TAZOBACTAM 4.5 GM in NS (IVPB) 100 ML IV ONE (00:15)
[2017-01-07] MEDS ORDERED: methylPREDNISolone 125 MG (Solu-MEDROL) VIAL IVP ONE (00:30)
[2017-01-07 01:22] LABS: BILIRUBIN,URINE NEGATIVE (NEGATIVE); KETONES,URINE NEGATIVE (NEGATIVE); LEUKOCYTE ESTERASE ,URINE 1+ (NEGATIVE); NITRITE,URINE NEGATIVE (NEGATIVE); PH,URINE 7 (5-9); PROTEIN,URINE 1+ (NEGATIVE); UROBILINOGEN,URINE 8 MG/DL (NORMAL)
[2017-01-07 01:28] LABS: WBC,URINE RARE /HPF
--- OUTSIDE RECORDS SUMMARY | 2017-01-07 01:35 | XMS REPORT | Continuity of Care Document ---
Author Author [facility] Organization [facility] Address Unknown Phone Unavailable Care Team Providers Care Rolling Up Machine Operator Name Role Phone PCP Unavailable Source Comments Some departments are not documenting in the electronic medical record. 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 Social History Tobacco Use Types Packs/Day Years Used Date Former Smoker Quit: 05/28/2013 Last Filed Vital Signs Vital Sign Reading Time Taken Blood Pressure 146/59 07/04/2013 2:19 PM RUBBER INSULATOR Pulse 73 07/04/2013 2:19 PM RUBBER INSULATOR Temperature 35.9 C (96.6 F) 07/04/2013 2:17 PM RUBBER INSULATOR Respiratory Rate 14 07/04/2013 2:17 PM RUBBER INSULATOR Height 1.6 m (5' 3") 07/04/2013 2:17 PM RUBBER INSULATOR Weight 58.968 kg (130 lb) 07/04/2013 2:17 PM RUBBER INSULATOR Body Mass Index 23.03 07/04/2013 2:17 PM RUBBER INSULATOR Oxygen Saturation - - Plan of Care Health Maintenance Due Date Last Done Comments Hepatitis C Screening 1949 Physical (Comprehensive) 1956 Exam Pertussis Vaccine 1960 Tetanus Vaccine 1966 Breast Cancer Screening 1989 Colorectal Cancer 1999 Screening Shingles Vaccine 2009 Osteoporosis Screening 2014 Prevnar/Pneumovax (#1) 2014 Influenza Vaccine 03/13/2017 Results from Last 3 Months Not on file
[2017-01-07] MEDS ORDERED: NS IV 1000 ML 1,000 ML ONE (03:04)
[2017-01-07] MEDS ORDERED: RT-ALBUTEROL/IPRATROPIUM 3 ML (DUONEB) VIAL INH PRN (03:30)
[2017-01-07 04:09] LABS: BASOPHILS % (AUTO) 0 % (0-10); EOSINOPHILS % (AUTO) 0 % (0-10); LYMPHOCYTES # (AUTO) 1.1 X 10^3 (1.0-4.0); LYMPHOCYTES % (AUTO) 9 % (12-44); MEAN CORPUSCULAR HEMOGLOBIN 30 PG (25-34); MEAN CORPUSCULAR HGB CONC 31 G/DL (32-36); MEAN CORPUSCULAR VOLUME 96 FL (80-99); MEAN PLATELET VOLUME 9.5 FL (7.4-10.4); MONOCYTES # (AUTO) 0.3 X 10^3 (0.0-1.0); MONOCYTES % (AUTO) 2 % (0-12); NEUTROPHILS # (AUTO) 11.5 X 10^3 (1.8-7.8); NEUTROPHILS % (AUTO) 89 % (42-75); PLATELET COUNT 560 10^3/uL (130-400); RED BLOOD COUNT 3.35 10^6/uL (4.35-5.85); RED CELL DISTRIBUTION WIDTH 15.2 % (10.0-14.5)
[2017-01-07] MEDS: VANCOMYCIN 1 GM/NS 250 ML IVPB IV SCH ×4 (04:14→16:43)
[2017-01-07] MEDS ORDERED: ACETAMINOPHEN 500 MG TAB (TYLENOL) PO PRN (04:15)
[2017-01-07] MEDS ORDERED: VASOPRESSIN INJECTION 20 UNIT in NS (IVPB) 50 ML IV SCH (04:15)
[2017-01-07] MEDS ORDERED: NOREPINEPHRINE 4 MG in D5W 250 ML (IVPB) 250 ML IV SCH (04:15)
[2017-01-07] MEDS ORDERED: CATHETER FLUSH 10 ML SYR IV PRN (04:15)
[2017-01-07 04:43] LABS: ALANINE AMINOTRANSFERASE 19 U/L (0-55); ANION GAP 10 MMOL/L (5-14); ASPARTATE AMINO TRANSFERASE 18 U/L (5-34); BILIRUBIN,TOTAL 1.2 MG/DL (0.1-1.0); BLOOD UREA NITROGEN 13 MG/DL (7-18); BUN/CREATININE RATIO 17; CALCIUM 8.7 MG/DL (8.5-10.1); CARBON DIOXIDE 25 MMOL/L (21-32); CHLORIDE 108 MMOL/L (98-107); CREATININE SERUM 0.75 MG/DL (0.60-1.30); GFR ESTIMATED > 60; GLUCOSE 160 MG/DL (70-105); MAGNESIUM 1.7 MG/DL (1.8-2.4); PHOSPHORUS 3.7 MG/DL (2.3-4.7); POTASSIUM 3.8 MMOL/L (3.6-5.0); SODIUM 143 MMOL/L (135-145); TOTAL PROTEIN 7.3 GM/DL (6.4-8.2)
[2017-01-07] MEDS: NS IV 1000 ML 1,000 ML IV SCH ×2 (04:44→16:43)
[2017-01-07 04:57] LABS: ABG BASE EXCESS 0.8 MMOL/L (-2.5-2.5); ABG HCO3 26 MMOL/L (23-27); ABG OXYGEN SATURATION 98 % (94-100); ABG PCO2 47 MMHG (35-45); ABG PH 7.35 (7.37-7.43); ABG PO2 93 MMHG (79-93); ABG TCO2 27.3 MMOL/L (21.0-31.0)
[2017-01-07 05:01] LABS: ALLENS TEST YES-POS
[2017-01-07 05:02] LABS: PATIENT TEMP 97.8
[2017-01-07 05:17] LABS: INR 1.2 (0.8-1.4); PROTHROMBIN TIME PATIENT 14.4 SEC (12.2-14.7)
[2017-01-07] MEDS ORDERED: inSUlin (REGULAR) HUMAN 1 UNIT/0.01 ML (CHARGE PER UNIT) SC SCH (06:00)
[2017-01-07] MEDS ORDERED: KCL 20 MEQ TAB (K-DUR) PO SCH (06:00)
[2017-01-07] MEDS ORDERED: MAGNESIUM 1 GM/100 ML IVPB 100 ML IV SCH (06:00)
[2017-01-07] MEDS ORDERED: POTASSIUM CL 10MEQ/50ML IVPB 50 ML IV SCH (06:00)
[2017-01-07] MEDS ORDERED: HYDROCORTISONE 100 MG/2 ML (Solu-CORTEF) VIAL IV SCH (06:00)
[2017-01-07] MEDS: CATHETER FLUSH 10 ML SYR IV SCH ×3 (06:14→21:03)
[2017-01-07] MEDS: PIPERACILLIN/TAZOBACTAM 4.5 GM/NS100 ML IVPB IV SCH ×6 (06:17→22:24)
[2017-01-07] MEDS: RT-ALBUTEROL/IPRATROPIUM 3 ML (DUONEB) VIAL INH SCH ×5 (06:40→22:08)
--- NOTE | 2017-01-07 07:57 | Diagnostic Imaging Report ---
INDICATION: Fever, postoperative knee surgery approximately two weeks ago. COMPARISON STUDY: Chest from December 17. FINDINGS: Frontal view of the chest demonstrates interval increase of the heart size with development of pulmonary congestion. Perihilar infiltrates are probably due to edema. No pleural effusions are present. IMPRESSION: Development of congestive heart failure. Dictated by: Dictated on workstation # [id number]
[2017-01-07] MEDS ORDERED: ALPR0.5T PO (08:36)
[2017-01-07] MEDS ORDERED: GABA600T2 PO (08:36)
[2017-01-07] MEDS ORDERED: OXYC-197 PO (08:36)
[2017-01-07] MEDS ORDERED: AZITHROMYCIN 500 MG/NS 250 ML IVPB IV SCH ×2 (09:00)
[2017-01-07] MEDS ORDERED: methylPREDNISolone 125 MG (Solu-MEDROL) VIAL IV ONE (09:00)
[2017-01-07] MEDS: FAMOTIDINE 20 MG (PEPCID) TABLET PO SCH ×3 (09:25→21:02)
[2017-01-07] MEDS: LACTOBACILLUS Acidoph/Bulgar (LACTINEX/FLORANEX) TAB PO SCH ×6 (09:25→21:01)
[2017-01-07] MEDS: ENOXAPARIN 40 MG/0.4 ML (LOVENOX) SYR SC SCH (09:26)
[2017-01-07] MEDS: MAGNESIUM 1 GM/100 ML IVPB 100 ML IV SCH ×2 (09:26→10:05)
--- NOTE | 2017-01-07 09:43 | Diagnostic Imaging Report ---
EXAMINATION: Portable upright radiograph of the chest. INDICATION: Sepsis. FINDINGS: There is background COPD. There is improving pulmonary vascular congestion. Moderate cardiomegaly is seen. No focal airspace opacity. The mediastinum and beny appear unchanged. IMPRESSION: 1. Cardiomegaly with improving vascular congestion. 2. COPD. Dictated by: Dictated on workstation # [id number]
[2017-01-07] MEDS ORDERED: RT-ALBUTEROL SULF 2.5 MG/3 ML PRE-MIX VIAL INH PRN (10:00)
--- NOTE | 2017-01-07 11:04 | Physical Therapy Evaluation ---
PT Evaluation-General Medical Diagnosis Admission Date Jan 07, 2017 at 00:15 Medical Diagnosis: severe sepsis, pneumonia c hypoxia, COPD, cellulits (R) LE, post-op infecti Onset Date: Jan 06, 2017 Therapy Diagnosis Therapy Diagnosis: debility Height/Weight Height (Feet): 5 Height (Inches): 2.00 Weight (Pounds): 189 Weight (Ounces): 1.0 Precautions Precautions/Isolations: Fall Prevention, Standard Precautions Weight Bear Status Weight Bearing Restriction: Weight Bearing/Tolerated Location Restriction: R LE Referral Physician: Abril Reason for Referral: Evaluation/Treatment Medical History Pertinent Medical History: Atrial Fib, Arthritis, COPD, CVA, Dementia, GERD, PVD, Rheumatoid Arthritis, Smoking Additional Medical History emphysema, (R) THR, (B) leg stents, partial (L) foot amputation, PVD, complete occlusion (L) carotid, dysphagia, dysarthria, (R) sided weakness post CVA, pancreatitis, c-diff, polyps Current History Pt presented to ER with daughter from [facility]. Recently discharged to [place] after (R) TKR on 12/29/16. Per family report "not active or compliant with therapy there". Presented with fever and SOB. Reviewed History: Yes Social History Home: Single Level Current Living Status: Lives in her home with round the clock care per daughter report Entry Into Home: Ramp Pt at [facility] prior to admission for rehabilitation after recent TKR Prior/Core FIM Prior Level of Function Functional [place] Measure 0=Not Assessed/NA 4=Minimal Assistance 1=Total Assistance 5=Supervision or Setup 2=Maximal Assistance 6=Modified [place] 3=Moderate Assistance 7=Complete [place] Bed Mobility: 6 Transfers (B,C,W/C) (FIM): 6 Gait: 2 Wheelchair Mobility: 4 Pt utilizing [facility] primarily prior to TKR due to knee pain. Able to ambulate short distances with FWW with CGA. SBA with TFRs and very limited gait after TKR. Per family report, decreased compliance with therapy at [place]. PT Evaluation-Current Subjective Pt agreeable. Daughter present and assisting with providing history. Pt/Family Goals Return to [place] to continue rehab after TKR Objective Patient Orientation: Person, Place, Non-Verbal/Aphasic Problem Solving: Good Attachments: SCD's, Oxygen, IV ROM/Strength ROM Upper Extremities See OT ROM Lower Extremities (L) LE WFL for functional mobility. (R) knee grossly +20-90 degrees Strength Upper Extremities See OT Strenght Lower Extremities Poor QS, (-) SLR on (R) Integumentary/Posture Integumentary See nurses' notes Sensory Vision: Functional Hearing: Functional Transfers Functional [place] Measure 0=Not Assessed/NA 4=Minimal Assistance 1=Total Assistance 5=Supervision or Setup 2=Maximal Assistance 6=Modified [place] 3=Moderate Assistance 7=Complete [place] Transfers (B, C, W/C) (FIM): 5 Scootin Supine to/from Sit: 5 Sit to/from Stand: 5 SBA for safety with TFRs Gait Mode of Locomotion: Both Anticipated Mode of Locomotion: Both Gait (FIM): 1 Distance (FIM): 1=up to 49 ft Distance: 20 Gait Level of Assist: 5 Gait Persons Needed: 1 Gait Assistive Device: FWW Comments/Gait Description Pt ambulates with FWW with SBA for safety but significantly antalgic gait. Keeps (R) knee in significant flexion during gait despite max skilled VCS. Balance Sitting Static: Normal Sitting Dynamic: Good Standing Static: Good Standing Dynamic: Good Treatment (R) knee: QS, SLR, HS (assist as needed). VCS and tactile cues for QS Assessment/Needs Pt is a 66 y.o. female with debility and recent (R) TKR. Pt would benefit from skilled PT to address ROM and strength deficits in (R) knee to improve (I) and safety with gait with FWW. Limitations: pain, Pt motivation. Pt was previously utilizing CPM at facility; may consider consult with Dr. Flores to monitor TKR during admission. Low complexity, stable clinical presentation. Rehab Potential: Fair PT Short Term Goals Short Term Goals Time Frame: Jan 14, 2017 Transfers (B,C,W/C) (FIM): 6 PT Shelter Goals Leach Runner Goals PT Shelter Goals Time Frame: Jan 21, 2017 Transfers (B,C,W/C) (FIM): 6 Gait (FIM): 5 Gait distance (FIM): 3=094-96 ft Distance: 50 Gait Level of Assist: 6 Gait Assistive Device: FWW PT goals established to increased (I) and safety with functional mobility to decrease caregiver burden upon discharge. PT Leach Runner Goals Leach Runner Goals PT Shelter Goals Time Frame: Jan 21, 2017 (R) knee AROM +10-100 to normalize gait, improve functional ROM PT Plan Problem List Problem List: Activity Tolerance, Functional Strength, Safety, Balance, Gait, Transfer, Bed Mobility, ROM Treatment/Plan Treatment Plan: Continue Plan of Care Treatment Plan: Bed Mobility, Education, Functional Activity [place], Functional Strength, Gait, Safety, Therapeutic Exercise, Transfers Treatment Duration: Jan 21, 2017 Visits Per Week: 10-11 Pt/Family Agrees w/Plan: Yes Safety Risks/Education Patient Education: Correct Positioning Teaching Recipient: Patient, Family Teaching Methods: Discussion Response to Teaching: Reinforcement Needed PT POC, importance of increasing activity, time OOB Discharge Recommendations Therapy D/C Recommendations: Chcf (TCU/NH) Barriers to Progress Pt motivation, pain Time/GCodes Time In: 1106 Time Out: 1130 Total Billed Treatment Time: 24 Total Billed Treatment 1, EVLOWC x 14', Ex x 10' G Codes Necessary: ANDRA Mcmillan DPT Jan 07, 2017 11:04
[2017-01-07] MEDS: oxyCODONE/APAP 5/325MG (PERCOCET 5) TABLET PO PRN ×3 (11:10→21:17)
[2017-01-07] MEDS: ASCORBIC ACID (VIT C) 500 MG TABLET PO SCH (11:53)
[2017-01-07] MEDS: GABAPENTIN 600 MG (NEURONTIN) TAB PO SCH ×2 (11:54→21:01)
--- NOTE | 2017-01-07 12:08 | Occupational Therapy Eval ---
OT Evaluation-General/PLF Medical Diagnosis Admission Date Jan 07, 2017 at 00:15 Medical Diagnosis: severe sepsis, pneumonia c hypoxia, COPD, cellulits (R) LE, post-op infecti Onset Date: Jan 06, 2017 Therapy Diagnosis Therapy Diagnosis: decreased self care skills Height/Weight Height (Feet): 5 Height (Inches): 2.00 Weight (Pounds): 189 Weight (Ounces): 1.0 Precautions Precautions/Isolations: Fall Prevention, Standard Precautions Weight Bear Status Weight Bearing Restriction: Weight Bearing/Tolerated Location Restriction: R LE Referral Physician: Abril Medical History Pertinent Medical History: Atrial Fib, Arthritis, COPD, CVA, Dementia, GERD, PVD, Rheumatoid Arthritis, Smoking Additional Medical History right TKA 12/2016, right [place], bilateral leg stents and vascular procedures, partial left foot amputation, emphysema, PVD, carotid disease, sleep difficulties, anxiety, depression Social History Home: Single Level Current Living Status: Lives in her home with round the clock care per daughter report Entry Into Home: Ramp ADL-Prior Level of Function ADL PLOF Comments Pt was discharged to [facility] on 12/29/16 following right TKA. Per pt and daughter, pt was able to dress herself and take herself to the restroom with FWW. OT Current Status Subjective Pt in bed, agrees to therapy. Pt reports pain in right knee, but does not rate. Mental Status/Objective Patient Orientation: Person, Non-Verbal/Aphasic Attachments: IV, Oxygen Current Dentures/Partials: Yes Upper Extremity ROM Decreased Right shoulder ROM Upper Extremity Coordination Fair ADL-Treatment ADL-Current Pt supine to sit with supervision. Pt participated in UE assessment while seated EOB. Pt performed sit to stand with SBA and demonstrated ability to perform transfer with SBA using FWW. Sit to supine with SBA. Pt resting in bed with needs met and daughter present after session. Functional [place] Measure 0=Not Assessed/NA 4=Minimal Assistance 1=Total Assistance 5=Supervision or Setup 2=Maximal Assistance 6=Modified [place] 3=Moderate Assistance 7=Complete IndependenceIRFPAI Quality Coding Scale 6 Independent with activity with or without an assistive device 5 Patient requires set up or clean up by helper. Patient completes activity by themselves 4 Supervision or touching assist (CGA). [place] provide cues , steadying assist 3 The helper provides less than half the effort to complete the activity 2 The helper provides more than half the effort to complete the activity 1 Dependent. The helper does all the effort to complete an activity 7 Patient refused to complete or attempt activity 9 The patient did not perform the activity before the current illness or injury 88 Not attempted due to Medical conditions or safety concerns OT Short Term Goals Short Term Goals Transfers (B,C,W/C) (FIM): 6 1=Demonstrate adherence to instructed precautions during ADL tasks. 2=Patient will verbalize/demonstrate understanding of assistive devices/ modifications for ADL. 3=Patient will improve strength/tolerance for activity to enable patient to perform ADL's. OT Nursing Home Goals Gasket Winder Goals Time Frame: Jan 21, 2017 Eating (FIM): 6 Grooming(FIM): 6 Bathing(FIM): 5 Upper Body Dressing(FIM): 5 Lower Body Dressing(FIM): 5 Toileting(FIM): 6 Toilet/Commode Transfer(FIM): 6 Additional Goals: 1-Demonstrate ADL Tasks, 2-Verbalize Understanding, 3- ImproveStrength/Cl[place] 1=Demonstrate adherence to instructed precautions during ADL tasks. 2=Patient will verbalize/demonstrate understanding of assistive devices/ modifications for ADL. 3=Patient will improve strength/tolerance for activity to enable patient to perform ADL's. OT Education/Plan Problem List/Assessment Assessment: Decreased Activ Tolerance, Decreased UE Strength, Dependent Transfers, Impaired Self-Care Skills Pt to benefit from skilled OT intervention for ADL training, transfers, strengthening, and safety education to improve level of independence and allow safe discharge plan. Discharge Recommendations Plan/Recommendations: Continue POC Treatment Plan/Plan of Care Treatment,Training & Education: Yes Patient would benefit from OT for education, treatment and training to promote independence in ADL's, mobility, safety and/or upper extremity function for ADL' s. Plan of Care: ADL Retraining, Functional Mobility, UE Funct Exercise/Act Treatment Duration: Jan 21, 2017 # of days/week 5 Visits Per Week: 5 Agreement: Yes Rehab Potential: Fair Time/GCodes Start Time: 11:30 Stop Time: 11:45 Total Time Billed (hr/min): 15 Billed Treatment Time 1 visit, YOSSI(15minutes) WAQAS GARSIA OT Jan 07, 2017 12:08
--- NOTE | 2017-01-07 12:18 | Progress Note-Standard ---
Standard Progress Note Progress Notes/Assess & Plan Date Seen by Provider: Jan 07, 2017 Time Seen by Provider: 11:40 Progress/Assessment & Plan right knee incision clean and dry no erythema recommend PT and CPM will follow as outpatient SABINO MADERA MD Jan 07, 2017 12:18
--- NOTE | 2017-01-07 12:29 | History & Physical-Hospitalist ---
HPI History of Present Illness: HPI/Chief Complaint CC: SOB, Confusion HPI: This is a 66 [address] Reyes who presents with sepsis and pneumonia with hypoxia. Was admitted to the ICU, then moved to 4th floor. 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 Flores Pt was not participating in rehab Pt supposed to be on O2 but NH did not get order and was not on it. Pt's sats were 82% when admitted UA is negative Dr. Samuels is monitoring her pneumonia and would like to send her to 4th PT/OT is working with the pt Pt is on therapeutic Lovenox Pt has expressive aphasia Patient Interview: Pt was not alert upon interview Pt's daughter was informed that things look good to move to the floor Physical exam stable. Lungs sound course, but with good air movement. Pt's daughter was assured that her surgical site looks good. Pt's daughter states her mother still has pain from the knee replacement Pt's daughter was informed that pneumonia was suspected and she is on abx Scribed by Michelle Jane under the direct supervision of Dr. Ayala. Source: patient Date Seen 01/07/17 Time Seen by Provider: 09:30 Attending Physician Venkatesh Whaley MD PCP Mihai Reyes MD Referring Physician Date of Admission Jan 07, 2017 at 00:15 Home Medications & Allergies Home Medications Reviewed patient Home Medication Reconciliation Form Allergies Allergies Coded Allergies levofloxacin (Verified Allergy, Severe, C-DIFF, 12/17/16) ceftriaxone (Verified Allergy, Unknown, 12/17/16) Past Afgzbwi-Rhtkgc-Myaifi Hx Patient Social History Marrital Status: single Employed/Student: retired Alcohol Use: Denies Use Recreational Drug Use: No Smoking Status: Former Smoker Former smoker/When Quit: Feb 16, 2014 Type Used: Cigarettes 2nd Hand Smoke Exposure: No Physical Abuse Screen: No Sexual Abuse: No Recent Foreign Travel: No Contact w/other who traveled: No Recent Hopitalizations: No Recent Infectious Disease Expo: No Immunizations Up To Date Tetanus Booster (TDap): Unknown Date of Pneumonia Vaccine: Aug 05, 2013 Date of Influenza Vaccine: Apr 12, 2016 Seasonal Allergies Seasonal Allergies: Yes Surgeries HX Surgeries: Yes (RIGHT TOTAL HIP; BILATERAL LEG STENTS AND VASCULAR PROCEDURES; RIGHT TOTAL KNEE REPLACEMENT 12/2016; PARTIAL LEFT FOOT AMPUTATION; ENDOSCOPIES) Surgeries: Joint Replacement, Orthopedic, Vascular Surgery Respiratory Hx Respiratory Disorders: Yes (HOME O2 AT HS AND PRN) Respiratory Disorders: COPD Cardiovascular Hx Cardiovascular Disorders: Yes (CAROTID DISEASE--COMPLETE OCCLUSION OF LEFT CAROTID) Cardiac Disorders: High Cholesterol, Hypertension, Peripheral Vascular Neurological Hx Neurological Disorders: Yes (DYSPHAGIA, DYSARTHRIA, RIGHT SIDE WEAKNESS POST CVA) Neurological Disorders: Dementia, Stroke Reproductive System Hx Reproductive Disorders: No Sexually Transmitted Disease: No HIV/AIDS: No Female Reproductive Disorders: Denies Genitourinary Hx Genitourinary Disorders: No Gastrointestinal Hx Gastrointestinal Disorders: Yes Gastrointestinal Disorders: Gastroesophageal Reflux, Pancreatitis, Polyps, C- Diff Musculoskeletal Hx Musculoskeletal Disorders: Yes (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 ) Musculoskeletal Disorders: Arthritis, Rheumatoid Arthritis Endocrine Hx Endocrine Disorders: No HEENT HX ENT Disorders: Yes HEENT Disorders: Dysphagia, Tinnitis Loss of Vision: Bilateral Hearing Impairment: Denies Cancer Hx Cancer: No Psychosocial Hx Psychiatric Problems: Yes Behavioral Health Disorders: Sleep Difficulties, Anxiety, Depression Integumentary HX Skin/Integumentary Disorder: No Blood Transfusions Hx Blood Disorders: No Adverse Reaction to a Blood Tr: No Family Medical History Significant Family History: Heart Disease Family Hx: Cancer 09 SISTER Family history: Arthritis 09 BROTHER 09 SISTER Family history: Cardiovascular disease 09 SISTER Family history: Thyroid disorder 09 SISTER Malignant neoplasm of lung 09 SISTER Review of Systems Date Seen by Provider: Jan 07, 2017 Time Seen by Provider: 09:30 Constitutional: see HPI, weakness EENTM: no symptoms reported Respiratory: cough, dyspnea on exertion, short of breath Cardiovascular: no symptoms reported Gastrointestinal: no symptoms reported Genitourinary: no symptoms reported Musculoskeletal: joint pain Skin: no symptoms reported Psychiatric/Neurological: Anxiety, Depressed All Other Systems Reviewed Negative Unless Noted: Yes Physical Exam Physical Exam Vital Signs Vital Sign - Last 12Hours 01/06/17 01/06/17 23:00 23:05 Temp 101.2 Pulse 86 Resp 20 B/P (MAP) 138/53 Pulse Ox 82 O2 Delivery Room Air O2 Flow Rate 4.00 Capillary Refill : Less Than 3 Seconds General Appearance: No Apparent Distress, WD/WN, Chronically ill Eyes: Bilateral Eye Normal Inspection, Bilateral Eye PERRL HEENT: PERRL/EOMI, Normal ENT Inspection, Pharynx Normal Neck: Full Range of Motion, Normal Inspection, Non Tender, Supple, Carotid Bruit Respiratory: Chest Non Tender, Normal Breath Sounds, No Accessory Muscle Use, No Respiratory Distress, Crackles, Decreased Breath Sounds, Wheezing Cardiovascular: Regular Rate, Rhythm, No Edema, No Gallop, No JVD, No Murmur, Normal Peripheral Pulses Gastrointestinal: Normal Bowel Sounds, No Organomegaly, No Pulsatile Mass, Non Tender, Soft Back: Normal Inspection, No CVA Tenderness, No Vertebral Tenderness Extremity: Normal Capillary Refill, Normal Inspection, Normal Range of Motion, Non Tender, No Calf Tenderness, No Pedal Edema Neurologic/Psychiatric: Alert, Oriented x3, No Motor/Sensory Deficits, Normal Mood/Affect Skin: Normal Color, Warm/Dry Lymphatic: No Adenopathy Results Results/Procedures Lab Laboratory Tests 01/06/17 23:31 01/07/17 03:35 Assessment/Plan Admission Diagnosis Assessment: Respiratory insufficiency due to pneumonia Overall severe debility following knee replacement COPD oxygen dependent Hyperlipidemia GERD Leukocytosis anemia Recent knee replacement [address] Flores uncomplicated Assessment and Plan Plan: Advance diet OOB PT/OT Nebulizer treatments Antibiotics Oxygen Clinical Quality Measures DVT/VTE Risk/Contraindication: Risk Factor Score Per Nursin RFS Level Per Nursing on Admit: 4+=Very High VENESSA AYALA DO Jan 07, 2017 12:29
--- NOTE | 2017-01-07 13:00 | Pulmonary Consultation ---
History of Present Illness History of Present Illness Date of Consultation 01/07/17 12:55 Time Seen by Provider: 08:00 Date of Admission History of Present Illness 66yo who is s/p knee surgery and then went to [facility] from rehab presented to ED secondary to fever, worsening SOB. CXR shows infiltration. Pt was placed on Abx and admitted to 4th floor. She is hypoxic and requiring oxygen via a NC. Allergies and Home Medications Allergies Coded Allergies: levofloxacin (Verified Allergy, Severe, C-DIFF, 12/17/16) ceftriaxone (Verified Allergy, Unknown, 12/17/16) Home Medications Albuterol Sulfate 2.5 Mg/3 Ml Vial.neb, 2.5 MG NEB Q6H PRN for SHORTNESS OF BREATH, (Reported) Alprazolam 0.5 Mg Tablet, 0.5 MG PO HS, (Reported) Ascorbate Calcium 500 Mg Tablet, 1,000 MG PO DAILY, (Reported) Aspirin 81 Mg Tablet.dr, 81 MG PO HS, (Reported) Budesonide/Formoterol Fumarate 10.2 Gm Hfa.aer.ad, 2 PUFF PO BID, (Reported) Cetirizine HCl 10 Mg Tablet, 10 MG PO DAILY, (Reported) Cholecalciferol (Vitamin D3) 1,000 Unit Tablet, 1,000 UNIT PO DAILY, (Reported) Diclofenac Sodium 100 Gm Gel..gram., TP BID, (Reported) Doxepin HCl 25 Mg Capsule, 25 MG PO HS, (Reported) Esomeprazole Magnesium 40 Mg Cap, 40 MG PO DAILY, (Reported) Etanercept 50 Mg/1 Ml Syringe, 50 MG INJ Tu, (Reported) Gabapentin 600 Mg Tablet, 600 MG PO TID, (Reported) L.acidoph & Paracasei,B.lactis 1 Each Capsule, 1 CAP PO BID, (Reported) Montelukast Sodium 10 Mg Tablet, 10 MG PO DAILY, (Reported) Multivitamin 1 Each Tab.chew, 1 TAB.CHEW PO BID, (Reported) Oxycodone HCl/Acetaminophen 1 Each Tablet, 1 TAB PO Q4H PRN for PAIN-MODERATE, ( Reported) Pravastatin Sodium 10 Mg Tablet, 10 MG PO HS, (Reported) Ranitidine HCl 150 Mg Tablet, 150 MG PO BID, (Reported) Sertraline HCl 50 Mg Tablet, 50 MG PO DAILY, (Reported) Tiotropium [place] 4 Gm Mist.inhal, 2.5 MCG PO DAILY, (Reported) Verapamil HCl 120 Mg Tablet.er, 120 MG PO DAILY, (Reported) Past Jfafsmf-Stqujw-Ewabia Hx Patient Social History Alcohol Use: Denies Use Recreational Drug Use: No Smoking Status: Former Smoker Type Used: Cigarettes Former Smoker/When Quit: Feb 16, 2014 2nd Hand Smoke Exposure: No Recent Foreign Travel: No Contact w/Someone Who Travel: No Recent Infectious Disease Expo: No Recent Hopitalizations: No Physical Abuse Screen: No Sexual Abuse: No Immunizations Up To Date Tetanus Booster (TDap): Unknown PED Vaccines UTD: Yes Date of Pneumonia Vaccine: Aug 05, 2013 Date of Influenza Vaccine: Apr 12, 2016 Seasonal Allergies Seasonal Allergies: Yes Surgeries HX Surgeries: Yes (RIGHT TOTAL HIP; BILATERAL LEG STENTS AND VASCULAR PROCEDURES; RIGHT TOTAL KNEE REPLACEMENT 12/2016; PARTIAL LEFT FOOT AMPUTATION; ENDOSCOPIES) Surgeries: Joint Replacement, Orthopedic, Vascular Surgery Respiratory Hx Respiratory Disorders: Yes (HOME O2 AT HS AND PRN) Respiratory Disorders: COPD, Emphysema Cardiovascular Hx Cardiac Disorders: Yes (CAROTID DISEASE--COMPLETE OCCLUSION OF LEFT CAROTID) Cardiac Disorders: Peripheral Vascular Neurological Hx Neurological Disorders: Yes (DYSPHAGIA, DYSARTHRIA, RIGHT SIDE WEAKNESS POST CVA) Neurological Disorders: Dementia, Stroke Reproductive System Hx Reproductive Disorders: No Sexually Transmitted Disease: No HIV/AIDS: No Female Reproductive Disorders: Denies Genitourinary Hx Genitourinary Disorders: No Gastrointestinal Hx Gastrointestinal Disorders: Yes Gastrointestinal Disorders: Gastroesophageal Reflux, Pancreatitis, Polyps, C- Diff Musculoskeletal Hx Musculoskeletal Disorders: Yes (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 ) Musculoskeletal Disorders: Arthritis, Rheumatoid Arthritis Endocrine Hx Endocrine Disorders: No HEENT HX ENT Disorders: Yes HEENT Disorders: Dysphagia, Tinnitis Loss of Vision: Bilateral Hearing Impairment: Denies Cancer Hx Cancer: No Psychosocial Hx Psychiatric Problems: Yes Behavioral Health Disorders: Sleep Difficulties, Anxiety, Depression Integumentary HX Skin/Integumentary Disorder: No Blood Transfusions Hx Blood Disorders: No Adverse Reaction to a Blood Tr: No Family Medical History Significant Family History: Heart Disease Family Medial History: Cancer 09 SISTER Family history: Arthritis 09 BROTHER 09 SISTER Family history: Cardiovascular disease 09 SISTER Family history: Thyroid disorder 09 SISTER Malignant neoplasm of lung 09 SISTER Exam Exam Vital Signs Date Time Temp Pulse Resp B/P (MAP) Pulse Ox O2 Delivery O2 Flow Rate FiO2 01/07/17 10:15 97.1 80 18 149/67 96 Nasal Cannula 3.00 01/07/17 09:00 75 12 95/43 95 Nasal Cannula 4.00 01/07/17 08:12 97 Nasal Cannula 3.00 01/07/17 08:09 97.0 76 11 125/65 96 Nasal Cannula 4.00 01/07/17 08:09 Nasal Cannula 3.00 01/07/17 07:00 77 17 120/60 96 Nasal Cannula 4.00 01/07/17 07:00 76 01/07/17 06:40 96 Nasal Cannula 4.00 01/07/17 06:00 76 12 114/58 96 Nasal Cannula 4.00 01/07/17 05:00 77 10 119/59 94 Nasal Cannula 4.00 01/07/17 04:00 97 Nasal Cannula 3.00 01/07/17 03:52 97.6 01/07/17 03:00 82 14 128/73 97 Nasal Cannula 4.00 01/07/17 02:50 98 01/07/17 02:45 84 14 119/57 98 Nasal Cannula 4.00 01/07/17 02:30 84 14 110/53 98 Nasal Cannula 4.00 01/07/17 02:15 87 01/07/17 02:15 87 19 129/61 94 Nasal Cannula 4.00 01/07/17 02:06 99.2 01/07/17 02:06 98 Nasal Cannula 5.00 01/07/17 02:00 99.8 90 20 97 Nasal Cannula 4.00 01/07/17 02:00 99.8 90 20 103/56 97 4.00 01/06/17 23:43 97 Nasal Cannula 4.00 01/06/17 23:36 101.2 01/06/17 23:28 97 Nasal Cannula 4.00 01/06/17 23:05 95 Nasal Cannula 4.00 01/06/17 23:00 101.2 86 20 138/53 82 Room Air I & O 01/07/17 07:00 Intake Total 1100 ml Output Total 1000 ml Balance 100 ml General Appearance: WD/WN, Anxious Respiratory: No Accessory Muscle Use, No Respiratory Distress, Crackles, Decreased Breath Sounds Cardiovascular: Regular Rate, Rhythm, No Edema, No Murmur Capillary Refill: Less Than 3 Seconds Gastrointestinal: non tender, soft Extremity: Normal Capillary Refill, Normal Inspection Neurologic/Psychiatric: Alert, Oriented x3 Skin: Normal Color, Warm/Dry Results Lab Laboratory Tests 01/06/17 23:31 01/07/17 03:35 Assessment/Plan Assessment/Plan Sepsis with pneumonia -continue zosyn vanco -crabtree cultures -IVF COPD AE -SVNs -solumedrol 40 Q 12 D/C solucortef debility -pt/ot 255 Clinical Quality Measures DVT/VTE Risk/Contraindication: Risk Factor Score Per Nursin RFS Level Per Nursing on Admit: 4+=Very High LULÚ MCKEON DO Jan 07, 2017 13:00
--- NOTE | 2017-01-07 13:47 | Physical Therapy Daily Note ---
PT Daily Note-Current Subjective Patient in bed pre tx, agrees to PT, states she has pain of 7/10 in her right knee. Appearance Patient in recliner post tx with legs elevated, has nurse call, phone, tray, all needs met. Family in the room. Mental Status Patient Orientation: Person, Place, Situation Attachments: Oxygen, IV Transfers Functional [place] Measure 0=Not Assessed/NA 4=Minimal Assistance 1=Total Assistance 5=Supervision or Setup 2=Maximal Assistance 6=Modified [place] 3=Moderate Assistance 7=Complete IndependenceIRFPAI Quality Coding Scale 6 Independent with activity with or without an assistive device 5 Patient requires set up or clean up by helper. Patient completes activity by themselves 4 Supervision or touching assist (CGA). [place] provide cues , steadying assist 3 The helper provides less than half the effort to complete the activity 2 The helper provides more than half the effort to complete the activity 1 Dependent. The helper does all the effort to complete an activity 7 Patient refused to complete or attempt activity 9 The patient did not perform the activity before the current illness or injury 88 Not attempted due to Medical conditions or safety concerns Transfers (B, C, W/C) (FIM): 4 Scootin Rollin Supine to/from Sit: 4 Sit to/from Stand: 4 Patient performs bed mobility with min assist, sit to stand with CGA and cues for safety and hand placement. Gait Training Gait (FIM): 1 Distance: 10' Gait Level of Assist: 4 Gait Persons Needed: 1 Gait Assistive Device: FWW CGA, antalgic, flexed right knee, slow ambulation. Patient ambulated from the bed to a chair on the other side of the room. Family states they will be with her for quite a while. Exercises Seated Therapy Exercises: Ankle pumps, Long arc quads, Hip flexion Seated Reps: 15 Treatments bed mobility and transfers, ambulation, functional strengthening Assessment Current Status: Fair Progress improving mobility PT Short Term Goals Short Term Goals Time Frame: Jan 14, 2017 Transfers (B,C,W/C) (FIM): 6 PT Usp Goals Usp Goals PT Usp Goals Time Frame: Jan 21, 2017 Transfers (B,C,W/C) (FIM): 6 Gait (FIM): 5 Gait distance (FIM): 8=099-15 ft Distance: 50 Gait Level of Assist: 6 Gait Assistive Device: FWW PT Plan Problem List Problem List: Activity Tolerance, Functional Strength, Safety, Balance, Gait, Transfer, Bed Mobility, ROM Treatment/Plan Treatment Plan: Continue Plan of Care Treatment Plan: Bed Mobility, Education, Functional Activity Clau, Functional Strength, Gait, Safety, Therapeutic Exercise, Transfers Treatment Duration: Jan 21, 2017 Visits Per Week: 10-11 Safety Risks/Education Patient Education: Gait Training, Transfer Techniques, Correct Positioning, Safety Issues Teaching Recipient: Patient Teaching Methods: Demonstration, Discussion Response to Teaching: Reinforcement Needed Time/GCodes Time In: 1330 Time Out: 1345 Total Billed Treatment Time: 15 Total Billed Treatment 1 visit GT 15' YANDEL DIOP PT Jan 07, 2017 13:47
--- NOTE | 2017-01-07 15:40 | Physical Therapy Daily Note ---
PT Daily Note-Current Subjective Patient in recliner pre tx, agrees to PT. We have a CPM to put on patient but she will need to get back to the bed. Appearance Patient in bed post tx with nurse call, phone, tray, CPM on, all needs met. Nurse instructed to get foot SCD's for patient. Mental Status Patient Orientation: Person Attachments: Oxygen, IV Transfers Functional [place] Measure 0=Not Assessed/NA 4=Minimal Assistance 1=Total Assistance 5=Supervision or Setup 2=Maximal Assistance 6=Modified [place] 3=Moderate Assistance 7=Complete IndependenceIRFPAI Quality Coding Scale 6 Independent with activity with or without an assistive device 5 Patient requires set up or clean up by helper. Patient completes activity by themselves 4 Supervision or touching assist (CGA). [place] provide cues , steadying assist 3 The helper provides less than half the effort to complete the activity 2 The helper provides more than half the effort to complete the activity 1 Dependent. The helper does all the effort to complete an activity 7 Patient refused to complete or attempt activity 9 The patient did not perform the activity before the current illness or injury 88 Not attempted due to Medical conditions or safety concerns Transfers (B, C, W/C) (FIM): 4 Scootin Rollin Supine to/from Sit: 4 Sit to/from Stand: 4 Gait Training Gait (FIM): 1 Distance: 10' Gait Level of Assist: 4 Gait Persons Needed: 1 Gait Assistive Device: FWW slow, antalgic, flexed right knee Treatments bed mobility and transfer training, ambulation, CPM donned at -2 extension and 46 flexion Assessment Current Status: Fair Progress improving mobility PT Short Term Goals Short Term Goals Time Frame: Jan 14, 2017 Transfers (B,C,W/C) (FIM): 6 PT Correction Goals Correction Goals PT Supervisor [employer] Goals Time Frame: Jan 21, 2017 Transfers (B,C,W/C) (FIM): 6 Gait (FIM): 5 Gait distance (FIM): 8=858-51 ft Distance: 50 Gait Level of Assist: 6 Gait Assistive Device: FWW PT Plan Problem List Problem List: Activity Tolerance, Functional Strength, Safety, Balance, Gait, Transfer, Bed Mobility, ROM Treatment/Plan Treatment Plan: Continue Plan of Care Treatment Plan: Bed Mobility, Education, Functional Activity Clau, Functional Strength, Gait, Safety, Therapeutic Exercise, Transfers Treatment Duration: Jan 21, 2017 Visits Per Week: 10-11 Safety Risks/Education Patient Education: Gait Training, Transfer Techniques, Safety Issues Teaching Recipient: Patient Teaching Methods: Demonstration, Discussion Response to Teaching: Reinforcement Needed Time/GCodes Time In: 1515 Time Out: 1530 Total Billed Treatment Time: 15 Total Billed Treatment 1 visit GT 15' YANDEL DIOP PT Jan 07, 2017 15:40
[2017-01-07] MEDS ORDERED: PATIENT MAY USE OWN MEDS, ALL MC SCH (15:45)
[2017-01-07] MEDS: methylPREDNISolone 40 MG/ML (Solu-MEDROL) VIAL IV SCH (21:00)
[2017-01-07] MEDS: ASPIRIN E.C. 81 MG (ECOTRIN) TAB PO SCH (21:01)
[2017-01-07] MEDS: SIMvastatin 10 MG (ZOCOR) TAB PO SCH (21:02)
[2017-01-07] MEDS: DOXEPIN 25 MG (SINEquan) CAP PO SCH (21:02)
[2017-01-07] MEDS: ALPRAZolam 0.5 MG (XANAX) TAB PO SCH (21:02)
[2017-01-07] MEDS: DICLOFENAC 1% GEL 100 GM (VOLTAREN) TUBE TP SCH (21:03)
[2017-01-08] VITALS: BP 135/70
[2017-01-08] MEDS: RT-ALBUTEROL/IPRATROPIUM 3 ML (DUONEB) VIAL INH SCH ×6 (02:40→21:56)
[2017-01-08 04:00] VITALS: BP 131/60
[2017-01-08] MEDS: VANCOMYCIN 1 GM/NS 250 ML IVPB IV SCH ×2 (04:17)
[2017-01-08] MEDS: NS IV 1000 ML 1,000 ML IV SCH ×2 (04:24→18:56)
[2017-01-08] MEDS: CATHETER FLUSH 10 ML SYR IV SCH ×3 (05:23→21:00)
[2017-01-08 05:41] LABS: BASOPHILS % (AUTO) 0 % (0-10); EOSINOPHILS % (AUTO) 0 % (0-10); LYMPHOCYTES # (AUTO) 1.4 X 10^3 (1.0-4.0); LYMPHOCYTES % (AUTO) 9 % (12-44); MEAN CORPUSCULAR HEMOGLOBIN 30 PG (25-34); MEAN CORPUSCULAR HGB CONC 31 G/DL (32-36); MEAN CORPUSCULAR VOLUME 96 FL (80-99); MEAN PLATELET VOLUME 9.3 FL (7.4-10.4); MONOCYTES # (AUTO) 0.7 X 10^3 (0.0-1.0); MONOCYTES % (AUTO) 5 % (0-12); NEUTROPHILS # (AUTO) 13.3 X 10^3 (1.8-7.8); NEUTROPHILS % (AUTO) 86 % (42-75); PLATELET COUNT 493 10^3/uL (130-400); RED BLOOD COUNT 2.68 10^6/uL (4.35-5.85); RED CELL DISTRIBUTION WIDTH 14.9 % (10.0-14.5); WHITE BLOOD COUNT 15.5 10^3/uL (4.3-11.0)
[2017-01-08 05:52] LABS: INR 1.2 (0.8-1.4); PROTHROMBIN TIME PATIENT 14.4 SEC (12.2-14.7)
[2017-01-08 06:00] LABS: ALANINE AMINOTRANSFERASE 13 U/L (0-55); ALBUMIN 2.5 GM/DL (3.2-4.5); ANION GAP 9 MMOL/L (5-14); ASPARTATE AMINO TRANSFERASE 12 U/L (5-34); BILIRUBIN,TOTAL 0.5 MG/DL (0.1-1.0); BLOOD UREA NITROGEN 11 MG/DL (7-18); BUN/CREATININE RATIO 22; CALCIUM 7.4 MG/DL (8.5-10.1); CARBON DIOXIDE 19 MMOL/L (21-32); CHLORIDE 116 MMOL/L (98-107); CREATININE SERUM 0.51 MG/DL (0.60-1.30); GFR ESTIMATED > 60; GLUCOSE 135 MG/DL (70-105); MAGNESIUM 1.5 MG/DL (1.8-2.4); PHOSPHORUS 2.7 MG/DL (2.3-4.7); POTASSIUM 3.2 MMOL/L (3.6-5.0); SODIUM 144 MMOL/L (135-145); TOTAL PROTEIN 5.6 GM/DL (6.4-8.2)
[2017-01-08] MEDS: MULTIVIT W/MINERALS TAB (THERAGRAN M) PO SCH (06:13)
[2017-01-08] MEDS: PANTOPRAZOLE 40 MG (PROTONIX) TAB PO SCH (06:13)
[2017-01-08] MEDS: PIPERACILLIN/TAZOBACTAM 4.5 GM/NS100 ML IVPB IV SCH ×6 (06:13→22:37)
[2017-01-08] MEDS: UMECLIDINIUM BROMIDE (INCRUSE ELLIPTA) 7'S IH SCH (06:50)
--- NOTE | 2017-01-08 07:45 | Pulmonary Progress Note ---
Subjective Time Seen by Provider: 07:45 Subjective/Events-last exam No complications noted. Pt feels improved. Exam Exam Vital Signs Date Time Temp Pulse Resp B/P (MAP) Pulse Ox O2 Delivery O2 Flow Rate FiO2 01/08/17 06:53 98 Nasal Cannula 2.00 01/08/17 06:50 98 Nasal Cannula 2.00 01/08/17 04:00 97.3 68 20 131/60 95 Nasal Cannula 2.00 01/08/17 02:40 98 Nasal Cannula 2.00 01/08/17 01:09 68 01/08/17 00:00 96.2 75 20 135/70 95 Nasal Cannula 2.00 01/07/17 22:10 94 Nasal Cannula 2.00 01/07/17 20:14 97.5 89 18 117/59 95 Nasal Cannula 2.00 01/07/17 19:50 95 Nasal Cannula 2.00 01/07/17 19:26 100 01/07/17 18:46 93 Nasal Cannula 2.00 01/07/17 15:45 98.0 90 18 126/58 95 Nasal Cannula 3.00 01/07/17 14:46 94 Nasal Cannula 2.00 01/07/17 11:00 Nasal Cannula 2.00 01/07/17 10:15 97.1 80 18 149/67 96 Nasal Cannula 3.00 01/07/17 09:00 75 12 95/43 95 Nasal Cannula 4.00 01/07/17 08:12 97 Nasal Cannula 3.00 01/07/17 08:09 97.0 76 11 125/65 96 Nasal Cannula 4.00 01/07/17 08:09 Nasal Cannula 3.00 I & O 01/08/17 07:00 Intake Total 3340 ml Output Total 550 ml Balance 2790 ml General Appearance: No Apparent Distress, WD/WN, Chronically ill HEENT: PERRL/EOMI, Normal ENT Inspection, Pharynx Normal Neck: Full Range of Motion, Normal Inspection, Non Tender, Supple, Carotid Bruit Respiratory: Chest Non Tender, Normal Breath Sounds, No Accessory Muscle Use, No Respiratory Distress, Crackles, Decreased Breath Sounds, Wheezing Cardiovascular: Regular Rate, Rhythm, No Edema, No Gallop, No JVD, No Murmur, Normal Peripheral Pulses Capillary Refill: Less Than 3 Seconds Gastrointestinal: non tender, soft Extremity: Normal Capillary Refill, Normal Inspection, Normal Range of Motion, Non Tender, No Calf Tenderness, No Pedal Edema Neurologic/Psychiatric: Alert, Oriented x3, No Motor/Sensory Deficits, Normal Mood/Affect Skin: Normal Color, Warm/Dry Lymphatic: No Adenopathy Results Lab Laboratory Tests 01/06/17 23:31 01/07/17 03:35 01/08/17 05:05 Assessment/Plan Assessment/Plan Sepsis with pneumonia -continue zosyn vanco -crabtree cultures -IVF COPD AE -SVNs -solumedrol 40 Q 12 debility -pt/ot Clinical Quality Measures DVT/VTE Risk/Contraindication: Risk Factor Score Per Nursin RFS Level Per Nursing on Admit: 4+=Very High LULÚ MCKEON DO Jan 08, 2017 07:45
[2017-01-08] MEDS: methylPREDNISolone 40 MG/ML (Solu-MEDROL) VIAL IV SCH ×2 (08:03→20:58)
[2017-01-08] MEDS: ENOXAPARIN 40 MG/0.4 ML (LOVENOX) SYR SC SCH (08:05)
[2017-01-08] MEDS: oxyCODONE/APAP 5/325MG (PERCOCET 5) TABLET PO PRN ×3 (08:06→19:42)
[2017-01-08] MEDS: FAMOTIDINE 20 MG (PEPCID) TABLET PO SCH ×4 (08:06→20:59)
[2017-01-08] MEDS: MONTELUKAST 10 MG (SINGULAIR) TAB PO SCH (08:06)
[2017-01-08] MEDS: LORATADINE (CLARITIN) 10 MG TAB PO SCH (08:06)
[2017-01-08] MEDS: GABAPENTIN 600 MG (NEURONTIN) TAB PO SCH ×3 (08:06→20:59)
[2017-01-08] MEDS: VERAPAMIL SR 240 MG (CALAN SR) TAB PO SCH (08:06)
[2017-01-08] MEDS: VITAMIN D3 1,000 UNITS (CHOLECALCIFEROL) TABLET PO SCH (08:06)
[2017-01-08] MEDS: SERTRALINE 50 MG (ZOLOFT) TABLET PO SCH (08:06)
[2017-01-08] MEDS: ASCORBIC ACID (VIT C) 500 MG TABLET PO SCH (08:07)
[2017-01-08] MEDS: LACTOBACILLUS Acidoph/Bulgar (LACTINEX/FLORANEX) TAB PO SCH ×6 (08:07→20:59)
[2017-01-08] MEDS: DICLOFENAC 1% GEL 100 GM (VOLTAREN) TUBE TP SCH ×2 (08:08→21:00)
[2017-01-08 08:30] VITALS: BP 135/70
--- NOTE | 2017-01-08 09:26 | Physical Therapy Daily Note ---
PT Daily Note-Current Subjective Agreeable to PT. No complaints. Transfers Functional [place] Measure 0=Not Assessed/NA 4=Minimal Assistance 1=Total Assistance 5=Supervision or Setup 2=Maximal Assistance 6=Modified [place] 3=Moderate Assistance 7=Complete IndependenceIRFPAI Quality Coding Scale 6 Independent with activity with or without an assistive device 5 Patient requires set up or clean up by helper. Patient completes activity by themselves 4 Supervision or touching assist (CGA). [place] provide cues , steadying assist 3 The helper provides less than half the effort to complete the activity 2 The helper provides more than half the effort to complete the activity 1 Dependent. The helper does all the effort to complete an activity 7 Patient refused to complete or attempt activity 9 The patient did not perform the activity before the current illness or injury 88 Not attempted due to Medical conditions or safety concerns Treatments Sit to stand with CGA. Pt ambulated x 50 ft with fww with CGA and skilled cues for posture and gait pattern. 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 Pt performed seated LE ther ex x 15 for AP and LAQ followed by reclined ex for AP, QS, HS, SAQ and SLR x 15 to promote quad strength for improved gait and transfers. Pt up in chair post treatment with needs met and oxygen insitu. Assessment Current Status: Good Progress Progressiong well. It will be difficult for normal gait pattern due to leg length difference and amputation left. PT Short Term Goals Short Term Goals Time Frame: Jan 14, 2017 Transfers (B,C,W/C) (FIM): 6 PT Shelter Goals Shelter Goals PT Machine Stone Polisher Apprentice Goals Time Frame: Jan 21, 2017 Transfers (B,C,W/C) (FIM): 6 Gait (FIM): 5 Gait distance (FIM): 2=401-06 ft Distance: 50 Gait Level of Assist: 6 Gait Assistive Device: FWW PT Plan Problem List Problem List: Activity Tolerance, Functional Strength, Safety, Balance, Gait, Transfer Treatment/Plan Treatment Plan: Continue Plan of Care Treatment Plan: Bed Mobility, Education, Functional Activity Cl[place], Functional Strength, Gait, Safety, Therapeutic Exercise, Transfers Treatment Duration: Jan 21, 2017 Visits Per Week: 10-11 Safety Risks/Education Patient Education: Transfer Techniques, Safety Issues Teaching Recipient: Patient Teaching Methods: Demonstration, Discussion Response to Teaching: Reinforcement Needed Time/GCodes Time In: 810 Time Out: 833 Total Billed Treatment Time: 23 Total Billed Treatment visit GT 10 EX 13 KRISTEN RESTREPO PT Jan 08, 2017 09:26
--- NOTE | 2017-01-08 10:44 | Progress Note-Hospitalist ---
Progress Note HPI/CC on Admission CC: SOB, Confusion HPI: This is a 66 [address] Reyes who presents with sepsis and pneumonia with hypoxia. Was admitted to the ICU, then moved to 4th floor. 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 Flores Pt was not participating in rehab Pt supposed to be on O2 but NH did not get order and was not on it. Pt's sats were 82% when admitted UA is negative Dr. Samuels is monitoring her pneumonia and would like to send her to 4th PT/OT is working with the pt Pt is on therapeutic Lovenox Pt has expressive aphasia Patient Interview: Pt was not alert upon interview Pt's daughter was informed that things look good to move to the floor Physical exam stable. Lungs sound course, but with good air movement. Pt's daughter was assured that her surgical site looks good. Pt's daughter states her mother still has pain from the knee replacement Pt's daughter was informed that pneumonia was suspected and she is on abx Scribed by Michelle Jane under the direct supervision of Dr. Ayala. Progress Notes/Assess & Plan Date Seen 01/08/17 Time Seen by Provider: 10:00 Admission Dx/Process Assessment: Respiratory insufficiency due to pneumonia Overall severe debility following knee replacement COPD oxygen dependent Hyperlipidemia GERD Leukocytosis anemia Recent knee replacement [address] 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 Pt looks great. She has been ambulating to toilet and ambulating with PT Pt looks good to DC tomorrow Patient Interview: Pt looks better today. Pt was sitting and eating upon interview. Pt confirms ambulating with PT Move to rehab was discussed with the pt Physical exam stable. Lungs sound perfect Pt was informed that everything she is connected to will be DC Pt states that she has been having BMs No fever, vital signs stable, pleasant, much improved, up in chair, very cheerful Regular rate and rhythm, clear to auscultation bilaterally but some rhonchi in the lower lobes No edema Laboratory Tests 01/08/17 05:05 Assessment: Respiratory insufficiency due to pneumonia on abx Overall severe debility following knee replacement COPD oxygen dependent Hyperlipidemia GERD Leukocytosis Anemia on chronic illness and acute blood loss from knee replacement Recent knee replacement [address] Flores uncomplicated Hypokalemia Plan: Advance diet OOB PT/OT Nebulizer treatments Antibiotics to continue Oxygen DC telemetry Heplock fluids Check am labs Replace potassium Scribed by Michelle Jane under the direct supervision of Dr. Ayala. VENESSA AYALA DO Jan 08, 2017 10:44
[2017-01-08] MEDS: KCL 20 MEQ TAB (K-DUR) PO SCH ×3 (11:02→17:43)
--- NOTE | 2017-01-08 11:10 | Diagnostic Imaging Report ---
INDICATION: Severe sepsis with hypoxia. TECHNIQUE: Single view chest at 5:20 AM. CORRELATION STUDY: 01/07/2017. FINDINGS: The heart size is stable. There is abnormal fullness and prominence of the hilar structures, left greater than right. The vasculature has increased from the prior study along with increasing interstitial markings, suspect for some degree of fluid overload or failure. The lung parenchyma demonstrates changes of likely COPD. Perihilar atelectasis, infiltrate, or edema has also developed. A right-sided central line has been placed since the prior study with the tip superimposed at the cavoatrial junction. IMPRESSION: Development of a component of pulmonary vascular congestion with perihilar and interstitial edema. Superimposed atelectasis or infiltrate at the perihilar regions and right lung base. Dictated by: Dictated on workstation # [id number]
[2017-01-08 12:00] VITALS: BP 167/71
--- NOTE | 2017-01-08 14:18 | Physical Therapy Daily Note ---
PT Daily Note-Current Subjective Agreeable to PT. Family reports pt got SOA with walking to the bathroom earlier today. Mental Status Patient Orientation: Person, Place, Time, Situation Transfers Functional [place] Measure 0=Not Assessed/NA 4=Minimal Assistance 1=Total Assistance 5=Supervision or Setup 2=Maximal Assistance 6=Modified [place] 3=Moderate Assistance 7=Complete IndependenceIRFPAI Quality Coding Scale 6 Independent with activity with or without an assistive device 5 Patient requires set up or clean up by helper. Patient completes activity by themselves 4 Supervision or touching assist (CGA). [place] provide cues , steadying assist 3 The helper provides less than half the effort to complete the activity 2 The helper provides more than half the effort to complete the activity 1 Dependent. The helper does all the effort to complete an activity 7 Patient refused to complete or attempt activity 9 The patient did not perform the activity before the current illness or injury 88 Not attempted due to Medical conditions or safety concerns Transfers (B, C, W/C) (FIM): 4 Supine to/from Sit: 4 Sit to/from Stand: 4 Gait Training Gait (FIM): 2 Distance (FIM): 9=154-01 ft Distance: 50 ft Gait Level of Assist: 4 Gait Assistive Device: FWW Right LE longer than the left--renders antalgic gait. Pt became SOA and fatigued with ambulation this distance. Exercises Supine Ex: Ankle pumps, Quad Set, Heel Slides, Short Arc Quads, Straight leg raise Supine Reps: 10 (To promote quad control and knee ROM) Treatments CPM applied 0-60 degrees Assessment Current Status: Good Progress Progressing. SOA with gait this visit. PT Short Term Goals Short Term Goals Time Frame: Jan 14, 2017 Transfers (B,C,W/C) (FIM): 6 PT Senior Care Goals Emergency Room Clinician Goals PT Senior Care Goals Time Frame: Jan 21, 2017 Transfers (B,C,W/C) (FIM): 6 Gait (FIM): 5 Gait distance (FIM): 3=521-96 ft Distance: 50 Gait Level of Assist: 6 Gait Assistive Device: FWW PT Plan Problem List Problem List: Activity Tolerance, Functional Strength, Safety, Gait, Transfer, Bed Mobility, ROM Treatment/Plan Treatment Plan: Continue Plan of Care Treatment Plan: Bed Mobility, Education, Functional Activity [place], Functional Strength, Gait, Safety, Therapeutic Exercise, Transfers Treatment Duration: Jan 21, 2017 Visits Per Week: 10-11 Safety Risks/Education Patient Education: Safety Issues Teaching Recipient: Patient Teaching Methods: Discussion Response to Teaching: Verbalize Understanding Time/GCodes Time In: 1345 Time Out: 1415 Total Billed Treatment Time: 30 Total Billed Treatment visit EX 15 GT 15 KRISTEN RESTREPO PT Jan 08, 2017 14:18
[2017-01-08 15:39] VITALS: BP 140/62
--- NOTE | 2017-01-08 15:48 | Occupational Ther Daily Note ---
OT Current Status-Daily Note Subjective Pt alert, lying in bed. Daughter present in room. Pt agreed to therapy. No c/ o pain. Nurse tech reported to [facility] that pt had just finished up with a shower and that she did very well with task. Mental Status/Objective Patient Orientation: Person, Place, Time, Situation Functional [place] Measure 0=Not Assessed/NA 4=Minimal Assistance 1=Total Assistance 5=Supervision or Setup 2=Maximal Assistance 6=Modified [place] 3=Moderate Assistance 7=Complete [place] Attachments: IV Other Treatment Pt was able to complete UE exercises against gravity to increase strength when completing functional daily tasks.. Pt required recovery break between each set. Pt demonstrated decreased B shldr AROM though in WFL. Pt then was able to demonstrate ability to scoot self up in bed with bed rails and use of LE to push up in bed. After therapy, pt lying in bed with call light/phone in reach. All needs met in room. OT Short Term Goals Short Term Goals Transfers (B,C,W/C) (FIM): 6 1=Demonstrate adherence to instructed precautions during ADL tasks. 2=Patient will verbalize/demonstrate understanding of assistive devices/ modifications for ADL. 3=Patient will improve strength/tolerance for activity to enable patient to perform ADL's. OT Protozoology Teacher Goals Protozoology Teacher Goals Time Frame: Jan 21, 2017 Eating (FIM): 6 Grooming(FIM): 6 Bathing(FIM): 5 Upper Body Dressing(FIM): 5 Lower Body Dressing(FIM): 5 Toileting(FIM): 6 Toilet/Commode Transfer(FIM): 6 Additional Goals: 1-Demonstrate ADL Tasks, 2-Verbalize Understanding, 3- ImproveStrength/[place] 1=Demonstrate adherence to instructed precautions during ADL tasks. 2=Patient will verbalize/demonstrate understanding of assistive devices/ modifications for ADL. 3=Patient will improve strength/tolerance for activity to enable patient to perform ADL's. OT Education/Plan Problem List/Assessment Pt to benefit from skilled OT intervention for ADL training, transfers, strengthening, and safety education to improve level of independence and allow safe discharge plan. Discharge Recommendations Plan/Recommendations: Continue POC Treatment Plan/Plan of Care Patient would benefit from OT for education, treatment and training to promote independence in ADL's, mobility, safety and/or upper extremity function for ADL' s. Plan of Care: ADL Retraining, Functional Mobility, UE Funct Exercise/Act Treatment Duration: Jan 21, 2017 Visits Per Week: 5 Agreement: Yes Rehab Potential: Fair Time/GCodes Start Time: 11:40 Stop Time: 12:00 Total Time Billed (hr/min): 20 Billed Treatment Time 1 visit-EX 1 (20 min) KRISTEN PETIT Jan 08, 2017 15:48
[2017-01-08] MEDS ORDERED: TROUGH ORDER-PHARMACY XX NR (16:15)
[2017-01-08] MEDS: ASPIRIN E.C. 81 MG (ECOTRIN) TAB PO SCH (20:58)
[2017-01-08] MEDS: DOXEPIN 25 MG (SINEquan) CAP PO SCH (20:59)
[2017-01-08] MEDS: SIMvastatin 10 MG (ZOCOR) TAB PO SCH (20:59)
[2017-01-08] MEDS: ALPRAZolam 0.5 MG (XANAX) TAB PO SCH (20:59)
[2017-01-09 00:14] VITALS: BP 146/70
[2017-01-09] MEDS: RT-ALBUTEROL/IPRATROPIUM 3 ML (DUONEB) VIAL INH SCH ×3 (02:18→10:44)
[2017-01-09 03:38] VITALS: BP 137/70
[2017-01-09] MEDS: NS IV 1000 ML 1,000 ML IV SCH (04:56)
[2017-01-09] MEDS: oxyCODONE/APAP 5/325MG (PERCOCET 5) TABLET PO PRN ×2 (05:59→09:55)
[2017-01-09] MEDS: PIPERACILLIN/TAZOBACTAM 4.5 GM/NS100 ML IVPB IV SCH ×2 (05:59)
[2017-01-09] MEDS: MULTIVIT W/MINERALS TAB (THERAGRAN M) PO SCH (05:59)
[2017-01-09] MEDS: PANTOPRAZOLE 40 MG (PROTONIX) TAB PO SCH (05:59)
[2017-01-09] MEDS: KCL 20 MEQ TAB (K-DUR) PO SCH ×2 (05:59→11:48)
[2017-01-09] MEDS: CATHETER FLUSH 10 ML SYR IV SCH (06:12)
[2017-01-09 06:20] LABS: BASOPHILS % (AUTO) 0 % (0-10); EOSINOPHILS % (AUTO) 0 % (0-10); LYMPHOCYTES # (AUTO) 1.7 X 10^3 (1.0-4.0); LYMPHOCYTES % (AUTO) 10 % (12-44); MEAN CORPUSCULAR HEMOGLOBIN 31 PG (25-34); MEAN CORPUSCULAR HGB CONC 32 G/DL (32-36); MEAN CORPUSCULAR VOLUME 97 FL (80-99); MEAN PLATELET VOLUME 9.4 FL (7.4-10.4); MONOCYTES # (AUTO) 0.9 X 10^3 (0.0-1.0); MONOCYTES % (AUTO) 5 % (0-12); NEUTROPHILS # (AUTO) 14.7 X 10^3 (1.8-7.8); NEUTROPHILS % (AUTO) 85 % (42-75); PLATELET COUNT 532 10^3/uL (130-400); RED BLOOD COUNT 2.98 10^6/uL (4.35-5.85); RED CELL DISTRIBUTION WIDTH 15.5 % (10.0-14.5); WHITE BLOOD COUNT 17.4 10^3/uL (4.3-11.0)
[2017-01-09 06:42] LABS: ALANINE AMINOTRANSFERASE 18 U/L (0-55); ALBUMIN 3.1 GM/DL (3.2-4.5); ANION GAP 7 MMOL/L (5-14); ASPARTATE AMINO TRANSFERASE 20 U/L (5-34); BILIRUBIN,TOTAL 0.5 MG/DL (0.1-1.0); BLOOD UREA NITROGEN 11 MG/DL (7-18); BUN/CREATININE RATIO 16; CALCIUM 9.3 MG/DL (8.5-10.1); CARBON DIOXIDE 27 MMOL/L (21-32); CHLORIDE 109 MMOL/L (98-107); CREATININE SERUM 0.69 MG/DL (0.60-1.30); GFR ESTIMATED > 60; GLUCOSE 135 MG/DL (70-105); MAGNESIUM 1.9 MG/DL (1.8-2.4); PHOSPHORUS 2.8 MG/DL (2.3-4.7); POTASSIUM 4.3 MMOL/L (3.6-5.0); SODIUM 143 MMOL/L (135-145); TOTAL PROTEIN 7.1 GM/DL (6.4-8.2)
[2017-01-09 06:58] LABS: ANISOCYTOSIS SLIGHT; BAND NEUTROPHILS 0 %; BASOPHILS % (MANUAL) 0 %; EOSINOPHILS % (MANUAL) 0 %; LYMPHOCYTES % (MANUAL) 12 %; NEUTROPHILS % (MANUAL) 82 %
[2017-01-09] MEDS: UMECLIDINIUM BROMIDE (INCRUSE ELLIPTA) 7'S IH SCH (07:14)
[2017-01-09 08:30] VITALS: BP 160/69
--- NOTE | 2017-01-09 08:32 | Pulmonary Progress Note ---
Subjective Time Seen by Provider: 08:31 Subjective/Events-last exam No complications noted currently. Exam Exam Vital Signs Date Time Temp Pulse Resp B/P (MAP) Pulse Ox O2 Delivery O2 Flow Rate FiO2 01/09/17 07:11 97 Nasal Cannula 1.00 01/09/17 03:38 98.0 79 20 137/70 98 Nasal Cannula 2.00 01/09/17 02:19 96 Nasal Cannula 1.00 01/09/17 00:14 98.7 80 20 146/70 97 Nasal Cannula 2.00 01/08/17 21:57 93 Nasal Cannula 1.00 01/08/17 20:00 Nasal Cannula 2.00 01/08/17 18:33 96 Nasal Cannula 1.00 01/08/17 15:39 98.7 89 18 140/62 98 Nasal Cannula 2.00 01/08/17 15:07 96 Nasal Cannula 2.00 01/08/17 12:00 98.0 74 18 167/71 99 Nasal Cannula 2.00 01/08/17 10:58 98 Nasal Cannula 2.00 I & O 01/09/17 07:00 Intake Total 850 ml Output Total 750 ml Balance 100 ml General Appearance: No Apparent Distress, WD/WN, Chronically ill HEENT: PERRL/EOMI, Normal ENT Inspection, Pharynx Normal Neck: Full Range of Motion, Normal Inspection, Non Tender, Supple, Carotid Bruit Respiratory: Chest Non Tender, Normal Breath Sounds, No Accessory Muscle Use, No Respiratory Distress, Crackles, Decreased Breath Sounds, Wheezing Cardiovascular: Regular Rate, Rhythm, No Edema, No Gallop, No JVD, No Murmur, Normal Peripheral Pulses Capillary Refill: Less Than 3 Seconds Gastrointestinal: non tender, soft Extremity: Normal Capillary Refill, Normal Inspection, Normal Range of Motion, Non Tender, No Calf Tenderness, No Pedal Edema Neurologic/Psychiatric: Alert, Oriented x3, No Motor/Sensory Deficits, Normal Mood/Affect Skin: Normal Color, Warm/Dry Lymphatic: No Adenopathy Results Lab Laboratory Tests 01/08/17 05:05 01/09/17 06:10 Assessment/Plan Assessment/Plan Sepsis with pneumonia -continue zosyn -crabtree cultures -IVF Worsening leukocytosis probably secondary to steroids. COPD AE -SVNs -solumedrol 40 Q 12 debility -pt/ot Clinical Quality Measures DVT/VTE Risk/Contraindication: Risk Factor Score Per Nursin RFS Level Per Nursing on Admit: 4+=Very High LULÚ MCKEON DO Jan 09, 2017 08:32
[2017-01-09] MEDS: DICLOFENAC 1% GEL 100 GM (VOLTAREN) TUBE TP SCH (09:24)
[2017-01-09] MEDS: LACTOBACILLUS Acidoph/Bulgar (LACTINEX/FLORANEX) TAB PO SCH (09:55)
[2017-01-09] MEDS: LORATADINE (CLARITIN) 10 MG TAB PO SCH (09:55)
[2017-01-09] MEDS: GABAPENTIN 600 MG (NEURONTIN) TAB PO SCH ×2 (09:55→13:10)
[2017-01-09] MEDS: VITAMIN D3 1,000 UNITS (CHOLECALCIFEROL) TABLET PO SCH (09:55)
[2017-01-09] MEDS: ASCORBIC ACID (VIT C) 500 MG TABLET PO SCH (09:55)
[2017-01-09] MEDS: MONTELUKAST 10 MG (SINGULAIR) TAB PO SCH (09:55)
[2017-01-09] MEDS: SERTRALINE 50 MG (ZOLOFT) TABLET PO SCH (09:55)
[2017-01-09] MEDS: FAMOTIDINE 20 MG (PEPCID) TABLET PO SCH (09:55)
[2017-01-09] MEDS: VERAPAMIL SR 240 MG (CALAN SR) TAB PO SCH (09:56)
[2017-01-09] MEDS: methylPREDNISolone 40 MG/ML (Solu-MEDROL) VIAL IV SCH (09:56)
[2017-01-09] MEDS: ENOXAPARIN 40 MG/0.4 ML (LOVENOX) SYR SC SCH (09:56)
[2017-01-09] MEDS ORDERED: OXYC-197 PO (10:37)
[2017-01-09] MEDS ORDERED: CEFD300C3 PO (10:37)
[2017-01-09] MEDS ORDERED: PRED10TA22 PO (10:37)
--- NOTE | 2017-01-09 10:37 | Discharge Summary-Hospitalist ---
Diagnosis/Chief Complaint Date of Admission Jan 07, 2017 at 00:15 Date of Discharge Admission Diagnosis Assessment: Respiratory insufficiency due to pneumonia Overall severe debility following knee replacement COPD oxygen dependent Hyperlipidemia GERD Leukocytosis anemia Recent knee replacement [address] Flores uncomplicated Discharge Diagnosis Assessment: Respiratory insufficiency due to pneumonia on abx Overall severe debility following knee replacement COPD oxygen dependent Hyperlipidemia GERD Leukocytosis Anemia on chronic illness and acute blood loss from knee replacement Recent knee replacement [address] Flores uncomplicated Hypokalemia Dementia Chart Review: No fever Vitals stable WBC 15.5 Hgb 8.0 K+ 3.2 cake tester: Pt not yet given K+ so I have ordered it. Pt looks great. She has been ambulating to toilet and ambulating with PT Pt looks good to DC tomorrow Patient Interview: Pt looks better today. Pt was sitting and eating upon interview. Pt confirms ambulating with PT Move to rehab was discussed with the pt Physical exam stable. Lungs sound perfect Pt was informed that everything she is connected to will be DC Pt states that she has been having BMs No fever, vital signs stable, pleasant, much improved, up in chair, very cheerful Regular rate and rhythm, clear to auscultation bilaterally but some rhonchi in the lower lobes No edema Laboratory Tests 01/08/17 05:05 Assessment: Respiratory insufficiency due to pneumonia on abx Overall severe debility following knee replacement COPD oxygen dependent Hyperlipidemia GERD Leukocytosis Anemia on chronic illness and acute blood loss from knee replacement Recent knee replacement [address] Flores uncomplicated Hypokalemia Plan: Advance diet OOB PT/OT Nebulizer treatments Antibiotics to continue Oxygen DC telemetry Heplock fluids Check am labs Replace potassium Scribed by Michelle Jane under the direct supervision of Dr. Ayala. Reason Hospital Visit/Course CC: SOB, Confusion HPI: This is a 66 [address] Reyes who presents with sepsis and pneumonia with hypoxia. Was admitted to the ICU, then moved to 4th floor. Chart Review: WBC 13 Hgb 10.1 ABG 7.35/47/93 CMP normal cake tester: Hernia replaced by Dr. Flores Pt was not participating in rehab Pt supposed to be on O2 but NH did not get order and was not on it. Pt's sats were 82% when admitted UA is negative Dr. Abril is monitoring her pneumonia and would like to send her to 4th PT/OT is working with the pt Pt is on therapeutic Lovenox Pt has expressive aphasia Patient Interview: Pt was not alert upon interview Pt's daughter was informed that things look good to move to the floor Physical exam stable. Lungs sound course, but with good air movement. Pt's daughter was assured that her surgical site looks good. Pt's daughter states her mother still has pain from the knee replacement Pt's daughter was informed that pneumonia was suspected and she is on abx Scribed by Michelle Jane under the direct supervision of Dr. Ayala. Notes from 01/09/17 Patient Interview: Pt states that she would like to DC today Pt states she is breathing okay. Pt will remain on O2 Physical exam stable. Lungs sound better today Pt was informed that abx, steroids, and breathing treatments will continue until DC No fever, vital signs stable, improved, up in chair Regular rate and rhythm, clear to auscultation bilaterally only subtle crackles in the bases Plan: Maintain abx, steroids, and breathing treatments Continue O2 Scribed by Michelle Jane under the direct supervision of Dr. Ayala. Hospital course: Patient had an uneventful hospital course she was admitted to the ICU for respiratory insufficiency required noninvasive ventilator support briefly been titrated down to nasal cannula oxygen. She was found to have bilateral infiltrates consistent with pneumonia facility acquired and was placed on appropriate antibiotics along with oxygen supplementation and nebulizer treatments. Patient did overall very well and was able to be discharged oral antibiotics and a fast taper of prednisone and will be going back to [facility] for skilled care and maintain oxygen and be admitted to [facility] services. Discharge Summary Discharge Physical Examination Allergies: Coded Allergies: levofloxacin (Verified Allergy, Severe, C-DIFF, 12/17/16) ceftriaxone (Verified Allergy, Unknown, 12/17/16) Vitals & I&Os Vital Signs Date Time Temp Pulse Resp B/P (MAP) Pulse Ox O2 Delivery O2 Flow Rate FiO2 01/09/17 08:30 96.8 74 18 160/69 94 Nasal Cannula 2.00 Hospital Course Labs (last 24 hrs) Laboratory Tests 01/09/17 06:10: White Blood Count 17.4H, Red Blood Count 2.98L, Hemoglobin 9.1L, Hematocrit 29L , Mean Corpuscular Volume 97, Mean Corpuscular Hemoglobin 31, Mean Corpuscular Hemoglobin Concent 32, Red Cell Distribution Width 15.5H, Platelet Count 532H, Mean Platelet Volume 9.4, Neutrophils (%) (Auto) 85H, Lymphocytes (%) (Auto) 10L , Monocytes (%) (Auto) 5, Eosinophils (%) (Auto) 0, Basophils (%) (Auto) 0, Neutrophils # (Auto) 14.7H, Lymphocytes # (Auto) 1.7, Monocytes # (Auto) 0.9, Eosinophils # (Auto) 0.0, Basophils # (Auto) 0.0, Neutrophils % (Manual) 82, Lymphocytes % (Manual) 12, Monocytes % (Manual) 6, Eosinophils % (Manual) 0, Basophils % (Manual) 0, Band Neutrophils 0, Anisocytosis SLIGHT, Prothrombin Time 13.0, INR Comment 1.0, Activated Partial Thromboplast Time 28, Sodium Level 143, Potassium Level 4.3, Chloride Level 109H, Carbon Dioxide Level 27, Anion Gap 7, Blood Urea Nitrogen 11, Creatinine 0.69, Estimat Glomerular Filtration Rate > 60, BUN/Creatinine Ratio 16, Glucose Level 135H, Lactic Acid Level 1.36, Calcium Level 9.3, Phosphorus Level 2.8, Magnesium Level 1.9, Total Bilirubin 0.5, Aspartate Amino Transf (AST/SGOT) 20, Alanine Aminotransferase ( ALT/SGPT) 18, Alkaline Phosphatase 84, Total Protein 7.1, Albumin 3.1L Microbiology 01/06/17 Blood Culture - Preliminary, Resulted No growth 01/07/17 MRSA Screen - Final, Complete MRSA not isolated Pending Labs Laboratory Tests 01/09/17 06:10: White Blood Count 17.4, Red Blood Count 2.98, Hemoglobin 9.1, Hematocrit 29, Mean Corpuscular Volume 97, Mean Corpuscular Hemoglobin 31, Mean Corpuscular Hemoglobin Concent 32, Red Cell Distribution Width 15.5, Platelet Count 532, Mean Platelet Volume 9.4, Neutrophils (%) (Auto) 85, Lymphocytes (%) (Auto) 10, Monocytes (%) (Auto) 5, Eosinophils (%) (Auto) 0, Basophils (%) (Auto) 0, Neutrophils # (Auto) 14.7, Lymphocytes # (Auto) 1.7, Monocytes # (Auto) 0.9, Eosinophils # (Auto) 0.0, Basophils # (Auto) 0.0, Neutrophils % (Manual) 82, Lymphocytes % (Manual) 12, Monocytes % (Manual) 6, Eosinophils % (Manual) 0, Basophils % (Manual) 0, Band Neutrophils 0, Anisocytosis SLIGHT, Prothrombin Time 13.0, INR Comment 1.0, Activated Partial Thromboplast Time 28, Sodium Level 143, Potassium Level 4.3, Chloride Level 109, Carbon Dioxide Level 27, Anion Gap 7, Blood Urea Nitrogen 11, Creatinine 0.69, Estimat Glomerular Filtration Rate > 60, BUN/Creatinine Ratio 16, Glucose Level 135, Lactic Acid Level 1.36, Calcium Level 9.3, Phosphorus Level 2.8, Magnesium Level 1.9, Total Bilirubin 0.5, Aspartate Amino Transf (AST/SGOT) 20, Alanine Aminotransferase ( ALT/SGPT) 18, Alkaline Phosphatase 84, Total Protein 7.1, Albumin 3.1 Discharge Home Medications: Active Scripts Active Prednisone 10 Mg Tab.ds.pk 10 Mg PO DAILY Take 6 tabs(60mg)daily,decrease by 1 tab(10MG)daily. Cefdinir 300 Mg Capsule 300 Mg PO BID 4 Days Percocet 5-325 mg Tablet (Oxycodone HCl/Acetaminophen) 1 Each Tablet 1 Tab PO Q4H PRN Reported Xanax (Alprazolam) 0.5 Mg Tablet 0.5 Mg PO HS Gabapentin 600 Mg Tablet 600 Mg PO TID Voltaren (Diclofenac Sodium) 100 Gm Gel..gram. TP BID Gummi Bear Multivitamin (Multivitamin) 1 Each Tab.chew 1 Tab.chew PO BID Nexium (Esomeprazole Magnesium) 40 Mg Cap 40 Mg PO DAILY Vitamin D3 (Cholecalciferol (Vitamin D3)) 1,000 Unit Tablet 1,000 Unit PO DAILY Enbrel (Etanercept) 50 Mg/1 Ml Syringe 50 Mg INJ TU Probiotic (L.acidoph & Paracasei,B.lactis) 1 Each Capsule 1 Cap PO BID Verapamil ER (Verapamil HCl) 120 Mg Tablet.er 120 Mg PO DAILY Sertraline HCl 50 Mg Tablet 50 Mg PO DAILY Doxepin HCl 25 Mg Capsule 25 Mg PO HS Ranitidine HCl 150 Mg Tablet 150 Mg PO BID Vitamin C (Ascorbate Calcium) 500 Mg Tablet 1,000 Mg PO DAILY Spiriva Respimat 2.5MCG/ACTUATION (Tiotropium [place]) 4 Gm Mist.inhal 2.5 Mcg PO DAILY Symbicort 160-4.5 Mcg Inhaler (Budesonide/Formoterol Fumarate) 10.2 Gm Hfa.aer.ad 2 Puff PO BID Cetirizine HCl 10 Mg Tablet 10 Mg PO DAILY Montelukast Sodium 10 Mg Tablet 10 Mg PO DAILY Aspirin EC (Aspirin) 81 Mg Tablet.dr 81 Mg PO HS Pravastatin Sodium 10 Mg Tablet 10 Mg PO HS Albuterol Sulfate 2.5 Mg/3 Ml Vial.neb 2.5 Mg NEB Q6H PRN Instructions to patient/family Please see electonic discharge instructions given to patient. Clinical Quality Measures DVT/VTE Risk/Contraindication: Risk Factor Score Per Nursin RFS Level Per Nursing on Admit: 4+=Very High VENESSA AYALA DO Jan 09, 2017 10:37
--- NOTE | 2017-01-09 10:38 | Discharge Inst-Skilled Nursing ---
Discharge Inst-Skilled NF Patient Instructions Patient Problems: Pneumonia recent knee replacement Patient Instructions: CPM as ortho instructs Dr Flores Consult/Follow Up/Orders Follow up appt.: [facility] on [facility] rounds Skilled NF Admit to: [facility] Certifications SNF I certify that SNF services are required to be given on an inpatient basis because of the above named patient's need for senior care care on a continuing basis for the conditions(s) for which he/she was receiving inpatient hospital services prior to his/her transfer to the SNF. Correction Facility Order: Nursing Services, Fitter Type Bar And Segment-Evaluate & Treat, Physical Therapy-Evaluate & Treat, Speech Language-Evaluate & Treat, Wound Care-Eval/Treat Discharge Diet: Low Sodium Diet, Cardiac Diet Daily Activity as Tolerated: Yes Discharge Medications New, Converted or Re-Newed RX: RX on Chart New Medications: Cefdinir (Cefdinir) 300 Mg Capsule 300 MG PO BID for 4 Days, CAP Prednisone (Prednisone) 10 Mg Tab.ds.pk 10 MG PO DAILY, #21 PKG Take 6 tabs(60mg)daily,decrease by 1 tab(10MG)daily. Continued Medications: Albuterol Sulfate (Albuterol Sulfate) 2.5 Mg/3 Ml Vial.neb 2.5 MG NEB Q6H PRN for SHORTNESS OF BREATH, EA Alprazolam (Xanax) 0.5 Mg Tablet 0.5 MG PO HS, TAB Ascorbate Calcium (Vitamin C) 500 Mg Tablet 1000 MG PO DAILY, TAB Aspirin (Aspirin EC) 81 Mg Tablet.dr 81 MG PO HS, TAB Budesonide/Formoterol Fumarate (Symbicort 160-4.5 Mcg Inhaler) 10.2 Gm Hfa.aer.ad 2 PUFF PO BID, INHALER Cetirizine HCl (Cetirizine HCl) 10 Mg Tablet 10 MG PO DAILY, TAB Cholecalciferol (Vitamin D3) (Vitamin D3) 1,000 Unit Tablet 1000 UNIT PO DAILY, TAB Diclofenac Sodium (Voltaren) 100 Gm Gel..gram. TP BID, TUBE Doxepin HCl (Doxepin HCl) 25 Mg Capsule 25 MG PO HS, CAP Esomeprazole Magnesium (Nexium) 40 Mg Cap 40 MG PO DAILY, CAP Etanercept (Enbrel) 50 Mg/1 Ml Syringe 50 MG INJ Tu, EA Gabapentin (Gabapentin) 600 Mg Tablet 600 MG PO TID, TAB L.acidoph & Paracasei,B.lactis (Probiotic) 1 Each Capsule 1 CAP PO BID, CAP Montelukast Sodium (Montelukast Sodium) 10 Mg Tablet 10 MG PO DAILY, TAB Multivitamin (Gummi Bear Multivitamin) 1 Each Tab.chew 1 TAB.CHEW PO BID, TAB Oxycodone HCl/Acetaminophen (Percocet 5-325 mg Tablet) 1 Each Tablet 1 TAB PO Q4H PRN for PAIN-MODERATE, #15 TAB (This prescription has been renewed) Pravastatin Sodium (Pravastatin Sodium) 10 Mg Tablet 10 MG PO HS, TAB Ranitidine HCl (Ranitidine HCl) 150 Mg Tablet 150 MG PO BID, TAB Sertraline HCl (Sertraline HCl) 50 Mg Tablet 50 MG PO DAILY, TAB Tiotropium [place] (Spiriva Respimat 2.5MCG/ACTUATION) 4 Gm Mist.inhal 2.5 MCG PO DAILY, INHALER Verapamil HCl (Verapamil ER) 120 Mg Tablet.er 120 MG PO DAILY, TAB Mary Jane Santa Jan 09, 2017 10:38 MARY JANE SANTA DO Jan 09, 2017 10:38
--- NOTE | 2017-01-09 10:42 | Diagnostic Imaging Report ---
EXAMINATION: Portable upright of the chest. INDICATION: Severe sepsis. COMPARISON: 01/08/17. FINDINGS: The lungs are hyperinflated. The heart is moderately enlarged. There is prominent fullness in the left hilum and to a lesser extent in the right hilum. This appears to be vascular based on the prior exams. There is vascular congestion which appears to be slightly worse compared to the prior study. Small left pleural effusion is also seen. Right PICC line is again seen with no change. IMPRESSION: Worsening pulmonary vascular congestion. Small left pleural effusion. Dictated by: Dictated on workstation # [id number]
[2017-01-13] MEDS ORDERED: ENBREL INJ SCH (10:00)
[2017-01-14] MEDS ORDERED: HYDROCORTISONE 100 MG/2 ML (Solu-CORTEF) VIAL IV SCH (08:00)
[2017-01-17] MEDS ORDERED: HYDROCORTISONE 100 MG/2 ML (Solu-CORTEF) VIAL IV SCH (12:00)
[2017-01-21] MEDS ORDERED: HYDROCORTISONE 100 MG/2 ML (Solu-CORTEF) VIAL IV SCH (09:00)
== END 2017-01-09 13:43 | DRG 871 ==
LOC: EDUNIT# 22:39 → ER 22:41 → ICU 01-07 00:15 → 4TH 01-07 10:30
PROVIDERS: ADMIT Internal Medicine; ATTEND Internal Medicine
DX: A41.9 Sepsis, unspecified organism (principal); J44.0 Chronic obstructive pulmonary disease with (acute) lower respiratory infection; J18.9 Pneumonia, unspecified organism; J44.1 Chronic obstructive pulmonary disease with (acute) exacerbation; E87.6 Hypokalemia; D62 Acute posthemorrhagic anemia; I69.351 Hemiplegia and hemiparesis following cerebral infarction affecting right dominant side; I69.320 Aphasia following cerebral infarction; D63.8 Anemia in other chronic diseases classified elsewhere; E78.5 Hyperlipidemia, unspecified; K21.9 Gastro-esophageal reflux disease without esophagitis; D72.829 Elevated white blood cell count, unspecified; Z96.651 Presence of right artificial knee joint; Z99.81 Dependence on supplemental oxygen; F32.9 Major depressive disorder, single episode, unspecified; F41.9 Anxiety disorder, unspecified; M06.9 Rheumatoid arthritis, unspecified; F03.90 Unspecified dementia, unspecified severity, without behavioral disturbance, psychotic disturbance, mood disturbance, and anxiety; I10 Essential (primary) hypertension; Z87.891 Personal history of nicotine dependence; Z96.641 Presence of right artificial hip joint
CPT/HCPCS: 36415; 36569; 71010; 76937; 80053; 81000; 82550; 82553; 82805; 82962; 83605; 83735; 83880; 84100; 84484; 85007; 85025; 85027; 85610; 85730; 87040; 87081; 93005; 93041; 94640; 94664; 94760; 96361; 96365; 96366; 96375

== ENCOUNTER 2017-04-09 11:43 | Inpatient (IN) | payer MEDICARE, MEDICAID ==
[~2017-04-09] VITALS: Ht 157.5 cm; Wt 93.7 kg
[2017-04-09] VITALS (36 sets, daily range): BP systolic 70–146; BP diastolic 36–97
[~2017-04-09 11:43] MED LIST changes: +ALPR0.5T PO; +CEFD300C3 PO; +GABA600T2 PO; +PRED10TA22 PO
--- OUTSIDE RECORDS SUMMARY | 2017-04-09 11:49 | XMS REPORT | Clinical Summary ---
Author Author [facility] Organization [facility] Address Unknown Phone Unavailable Care Team Providers Care Shaper And Presser Name Role Phone PCP Unavailable Source Comments Some departments are not documenting in the electronic medical record. If you do not see the information that you expected, contact Release of Information in the Health Information Management department at [phone] for further assistance in locating additional records.[facility] Allergies No Known Allergies Current Medications Prescription Sig. 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/07/2013 Social History Tobacco Use Types Packs/Day Years Used Date Former Smoker Quit: 05/28/2013 Sex Assigned at Date Recorded Not on file Last Filed Vital Signs Vital Sign Reading Time Taken Blood Pressure 146/59 07/04/2013 2:19 PM [employer] Pulse 73 07/04/2013 2:19 PM [employer] Temperature 35.9 C (96.6 F) 07/04/2013 2:17 PM [employer] Respiratory Rate 14 07/04/2013 2:17 PM [employer] Oxygen Saturation - - Inhaled Oxygen - - Concentration Weight 59 kg (130 lb) 07/04/2013 2:17 PM [employer] Height 160 cm (5' 3") 07/04/2013 2:17 PM [employer] Body Mass Index 23.03 07/04/2013 2:17 PM [employer] Plan of Treatment Health Maintenance Due Date Last Done Comments HEPATITIS C SCREENING 1949 PHYSICAL (COMPREHENSIVE) 1956 EXAM PERTUSSIS VACCINE 1960 TETANUS VACCINE 1966 BREAST CANCER SCREENING 1989 COLORECTAL CANCER 1999 SCREENING SHINGLES VACCINE 2009 OSTEOPOROSIS SCREENING 2014 PREVNAR/PNEUMOVAX (#1) 2014 INFLUENZA VACCINE 04/12/2017 Results Not on filefrom Last 3 Months
--- OUTSIDE RECORDS SUMMARY | 2017-04-09 11:50 | XMS REPORT ---
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 822783952 Problem Osteoarthritis of foot M19.079 Active 141789897 Problem PVD (peripheral vascular disease) I73.9 Active 099326424 Problem Edema R60.9 Active 696091488 Problem Anxiety F41.9 Active 08847126 Problem Chronic pain syndrome G89.4 Active 962330915 Problem Chronic obstructive pulmon disease w acute lower resp infct J44.0 Active Problem Rheumatoid arthritis, involving unspecified site, unspecified rheumatoid factor presence M06.9 Active 11804867 Problem Leg pain, left M79.605 Active 289329533 Problem Dysphagia, unspecified dysphagia R13.10 Active 49825636 Problem Insomnia, unspecified type G47.00 Active 013203485 Problem Anemia, unspecified type D64.9 Active 979594445 Problem Depression, unspecified depression type F32.9 Active 66965401 Problem Other chronic pain G89.29 Active 17116627 Problem Iron deficiency anemia, unspecified iron deficiency anemia type D50.9 Active 53857073 Problem Hypertension I10 Active 43820302 Problem COPD (chronic obstructive pulmonary disease) J44.9 Active 19969788 Problem Peripheral vascular disease, unspecified I73.9 Active 459418121 Problem History of cerebrovascular accident with current residual effects I69.90 Active 015638702 Problem Dysthymia F34.1 Active 99850934 Problem Rheumatoid arthritis M06.9 Active 84989017 Problem 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
--- OUTSIDE RECORDS SUMMARY | 2017-04-09 11:50 | XMS REPORT ---
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 743905393 Problem Leg pain, left M79.605 Active 834869370 Problem Edema R60.9 Active 553668097 Problem Anxiety F41.9 Active 04005760 Problem Chronic pain syndrome G89.4 Active 849715756 Problem Chronic obstructive pulmon disease w acute lower resp infct J44.0 Active Problem Other chronic pain G89.29 Active 88720690 Problem PVD (peripheral vascular disease) I73.9 Active 918457654 Problem Insomnia, unspecified type G47.00 Active 735037925 Problem Dysphagia, unspecified dysphagia R13.10 Active 27322709 Problem Anemia, unspecified type D64.9 Active 136305863 Problem Depression, unspecified depression type F32.9 Active 62485459 Problem Rheumatoid arthritis, involving unspecified site, unspecified rheumatoid factor presence M06.9 Active 29310943 Problem Iron deficiency anemia, unspecified iron deficiency anemia type D50.9 Active 98522952 Problem 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 294163868 Problem Osteoarthritis of foot M19.079 Active 616814219 Problem Peripheral vascular disease, unspecified I73.9 Active 808311680 Problem History of cerebrovascular accident with current residual effects I69.90 Active 417427824 Problem Rheumatoid arthritis M06.9 Active 54275485 Problem Atrial fibrillation I48.91 Active 67499951 Problem Hypertension I10 Active 86425186 Problem COPD (chronic obstructive pulmonary disease) J44.9 Active 74412791 ALLERGIES No Information SOCIAL HISTORY Never Assessed PLAN OF CARE VITAL SIGNS MEDICATIONS Unknown Medications RESULTS No Results PROCEDURES No Known procedures IMMUNIZATIONS No Known Immunizations MEDICAL (GENERAL) HISTORY Type Description Date Medical History Arthritis Medical History peripheral vascular disease Medical History tachycardia (PSVT) Medical History chronic obstructive pulmonary disease (COPD) PFT 11/2014 Mod to severe restrictive disease Medical History pancreatitis Medical History hyperlipidemia Medical History rheumatoid arthritis 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 Di Moore) 2012 Surgical History arthrectomy with stent L SFA (Toro) 2013 Surgical History capsule endoscopy Dr Pittman WN 03/2016 Surgical History Rt TKA 12/24/16 Hospitalization History amputation transmetatarsal Hospitalization History hip replacement Hospitalization History CVA 12/2014 Hospitalization History Exacerbation COPD 10/23/15 Hospitalization History Diarrhea, leukocytosis--[facility] 01/08/16 Hospitalization History pseudomemranous colitis, sepsis--[facility] 04/21/2016 Hospitalization History C Diff--[facility] 05/10/2016 Hospitalization History sepsis, pneumonia, diarrhea--[facility] 06/11/16 Hospitalization History recurrent cdiff, pneumonia-[facility] 07/22/16
--- OUTSIDE RECORDS SUMMARY | 2017-04-09 11:50 | XMS REPORT ---
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 596057210 Problem Osteoarthritis of foot M19.079 Active 067052250 Problem PVD (peripheral vascular disease) I73.9 Active 674134164 Problem Edema R60.9 Active 997563852 Problem Anxiety F41.9 Active 62983198 Problem Chronic pain syndrome G89.4 Active 301363182 Problem Chronic obstructive pulmon disease w acute lower resp infct J44.0 Active Problem Rheumatoid arthritis, involving unspecified site, unspecified rheumatoid factor presence M06.9 Active 89800533 Problem Leg pain, left M79.605 Active 016515514 Problem Dysphagia, unspecified dysphagia R13.10 Active 85848715 Problem Insomnia, unspecified type G47.00 Active 707442057 Problem Anemia, unspecified type D64.9 Active 404395894 Problem Depression, unspecified depression type F32.9 Active 92467331 Problem Other chronic pain G89.29 Active 55412713 Problem Iron deficiency anemia, unspecified iron deficiency anemia type D50.9 Active 32067256 Problem Hypertension I10 Active 01660993 Problem COPD (chronic obstructive pulmonary disease) J44.9 Active 12594699 Problem Peripheral vascular disease, unspecified I73.9 Active 594478497 Problem History of cerebrovascular accident with current residual effects I69.90 Active 904691637 Problem Dysthymia F34.1 Active 37885227 Problem Rheumatoid arthritis M06.9 Active 80108275 Problem 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
--- OUTSIDE RECORDS SUMMARY | 2017-04-09 11:50 | XMS REPORT ---
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 509632818 Problem Leg pain, left M79.605 Active 275931834 Problem Edema R60.9 Active 414143156 Problem Anxiety F41.9 Active 10709106 Problem Chronic pain syndrome G89.4 Active 712216159 Problem Chronic obstructive pulmon disease w acute lower resp infct J44.0 Active Problem Other chronic pain G89.29 Active 58864327 Problem PVD (peripheral vascular disease) I73.9 Active 296228994 Problem Insomnia, unspecified type G47.00 Active 919771807 Problem Dysphagia, unspecified dysphagia R13.10 Active 45301653 Problem Anemia, unspecified type D64.9 Active 527684075 Problem Depression, unspecified depression type F32.9 Active 08630732 Problem Rheumatoid arthritis, involving unspecified site, unspecified rheumatoid factor presence M06.9 Active 21401879 Problem Iron deficiency anemia, unspecified iron deficiency anemia type D50.9 Active 52403908 Problem 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 265362667 Problem Osteoarthritis of foot M19.079 Active 710701096 Problem Peripheral vascular disease, unspecified I73.9 Active 031466927 Problem History of cerebrovascular accident with current residual effects I69.90 Active 774525960 Problem Rheumatoid arthritis M06.9 Active 65276806 Problem Atrial fibrillation I48.91 Active 39812201 Problem Hypertension I10 Active 75832098 Problem COPD (chronic obstructive pulmonary disease) J44.9 Active 40194277 ALLERGIES No Information SOCIAL HISTORY Never Assessed PLAN OF CARE VITAL SIGNS MEDICATIONS Medication [...] leukocytosis--[facility] 01/08/16 Hospitalization History pseudomemranous colitis, sepsis--[facility] 04/21/2016 Hospitalization History C Diff--[facility] 05/10/2016 Hospitalization History sepsis, pneumonia, diarrhea--[facility] 06/11/16 Hospitalization History recurrent cdiff, pneumonia-[facility] 07/22/16
--- OUTSIDE RECORDS SUMMARY | 2017-04-09 11:52 | XMS REPORT ---
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 857498179 Problem Leg pain, left M79.605 Active 891641212 Problem Edema R60.9 Active 562308500 Problem Anxiety F41.9 Active 05242091 Problem Chronic pain syndrome G89.4 Active 617506240 Problem Chronic obstructive pulmon disease w acute lower resp infct J44.0 Active Problem Other chronic pain G89.29 Active 57367624 Problem PVD (peripheral vascular disease) I73.9 Active 408551455 Problem Insomnia, unspecified type G47.00 Active 398502011 Problem Dysphagia, unspecified dysphagia R13.10 Active 39835617 Problem Anemia, unspecified type D64.9 Active 828920676 Problem Depression, unspecified depression type F32.9 Active 15543875 Problem Rheumatoid arthritis, involving unspecified site, unspecified rheumatoid factor presence M06.9 Active 10273464 Problem Iron deficiency anemia, unspecified iron deficiency anemia type D50.9 Active 02596494 Problem 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 708938592 Problem Osteoarthritis of foot M19.079 Active 707713749 Problem Peripheral vascular disease, unspecified I73.9 Active 573547287 Problem History of cerebrovascular accident with current residual effects I69.90 Active 505236073 Problem Rheumatoid arthritis M06.9 Active 87151512 Problem Atrial fibrillation I48.91 Active 51257831 Problem Hypertension I10 Active 31327415 Problem COPD (chronic obstructive pulmonary disease) J44.9 Active 04821356 ALLERGIES Unknown Allergies SOCIAL HISTORY No smoking Hx information available PLAN OF CARE Activity Details Follow Up 2 Months Reason: VITAL SIGNS MEDICATIONS Unknown Medications RESULTS No Results PROCEDURES Procedure Date Ordered Related Diagnosis Body Site Minor complication (15 mins) Jul 29, 2016 IMMUNIZATIONS No Known Immunizations
--- OUTSIDE RECORDS SUMMARY | 2017-04-09 11:53 | XMS REPORT ---
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 315996104 Problem Leg pain, left M79.605 Active 871072207 Problem Edema R60.9 Active 867686302 Problem Anxiety F41.9 Active 89969526 Problem Chronic pain syndrome G89.4 Active 457022568 Problem Chronic obstructive pulmon disease w acute lower resp infct J44.0 Active Problem Other chronic pain G89.29 Active 88142021 Problem PVD (peripheral vascular disease) I73.9 Active 379098339 Problem Insomnia, unspecified type G47.00 Active 881132760 Problem Dysphagia, unspecified dysphagia R13.10 Active 77899854 Problem Anemia, unspecified type D64.9 Active 019224592 Problem Depression, unspecified depression type F32.9 Active 63563064 Problem Rheumatoid arthritis, involving unspecified site, unspecified rheumatoid factor presence M06.9 Active 47926084 Problem Iron deficiency anemia, unspecified iron deficiency anemia type D50.9 Active 10547136 Problem 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 311939173 Problem Osteoarthritis of foot M19.079 Active 076395974 Problem Peripheral vascular disease, unspecified I73.9 Active 737624532 Problem History of cerebrovascular accident with current residual effects I69.90 Active 840835219 Problem Rheumatoid arthritis M06.9 Active 99580958 Problem Atrial fibrillation I48.91 Active 42961689 Problem Hypertension I10 Active 20403374 Problem COPD (chronic obstructive pulmonary disease) J44.9 Active 08446903 ALLERGIES No Information SOCIAL HISTORY Never Assessed [...] leukocytosis--[facility] 01/08/16 Hospitalization History pseudomemranous colitis, sepsis--[facility] 04/21/2016 Hospitalization History C Diff--[facility] 05/10/2016 Hospitalization History sepsis, pneumonia, diarrhea--[facility] 06/11/16 Hospitalization History recurrent cdiff, pneumonia-[facility] 07/22/16
--- OUTSIDE RECORDS SUMMARY | 2017-04-09 11:54 | XMS REPORT ---
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 079114825 Problem Leg pain, left M79.605 Active 656675867 Problem Edema R60.9 Active 452735854 Problem Anxiety F41.9 Active 59455393 Problem Chronic pain syndrome G89.4 Active 766257016 Problem Chronic obstructive pulmon disease w acute lower resp infct J44.0 Active Problem Other chronic pain G89.29 Active 37570688 Problem PVD (peripheral vascular disease) I73.9 Active 833841023 Problem Insomnia, unspecified type G47.00 Active 152008980 Problem Dysphagia, unspecified dysphagia R13.10 Active 06718725 Problem Anemia, unspecified type D64.9 Active 698453063 Problem Depression, unspecified depression type F32.9 Active 66115849 Problem Rheumatoid arthritis, involving unspecified site, unspecified rheumatoid factor presence M06.9 Active 53976413 Problem Iron deficiency anemia, unspecified iron deficiency anemia type D50.9 Active 26375842 Problem 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 881660609 Problem Osteoarthritis of foot M19.079 Active 308878123 Problem Peripheral vascular disease, unspecified I73.9 Active 624335085 Problem History of cerebrovascular accident with current residual effects I69.90 Active 075562636 Problem Rheumatoid arthritis M06.9 Active 10267083 Problem Atrial fibrillation I48.91 Active 25634582 Problem Hypertension I10 Active 78239418 Problem COPD (chronic obstructive pulmonary disease) J44.9 Active 55986521 ALLERGIES Unknown Allergies SOCIAL HISTORY No smoking Hx information available PLAN OF CARE VITAL SIGNS MEDICATIONS Medication Instructions Dosage Frequency Start Date End Date Duration Status Omeprazole 20 mg Orally Once a day 1 capsules 24h Active Oxygen 2 L/NC by inhalation route all day and nite ... Feb, Active Metronidazole 500 MG Orally 3 times a day 1 tablet 8h Jul,Jul Active Spiriva Respimat 2.5 MCG/ACT Inhalation Once a day 1 puff 24h Oct, Active Aspirin EC 81 MG Orally Once a day 1 tablet 24h 30 Active Verapamil HCl CR 120 MG Orally Once a day 1 tablet in the morning with food 24h 90 Active Pravastatin Sodium 10 MG TAKE ONE TABLET BY MOUTH ONCE DAILY 30 Active Multi Adult Gummies - Active Hydrocodone-Acetaminophen 10-325 MG Orally 3 times a day 1 tablet as needed 8h Jun, 10 Aug, 2016 28 days Active Cetirizine HCl 10 MG Orally Once a day 1 tablet 24h Active Cholecalciferol 1000 UNIT Orally Once a day 1 capsule 24h Active Probiotic - Active Gabapentin 300 MG TAKE TWO CAPSULES BY MOUTH THREE TIMES DAILY 30 Active Xanax 0.5 MG Orally Once a day 1 tablet at bedtime 24h Jan, 28 days Active Zoloft 50 mg Orally Once a day 1 tablet 24h Mar, Active Enbrel 50 MG/ML 1 ml Active Ranitidine HCl 150 MG TAKE ONE TABLET BY MOUTH TWICE DAILY 30 Active Albuterol Sulfate (2.5 MG/3ML) 0.083% Inhalation every 6 hrs 3 ml 6h 30 days Active Levofloxacin 750 MG Orally Once a day 1 tablet 24h Jul, Jul, Active Vitamin C 500 MG Orally twice a day 1 tablet 12h Feb, 30 day(s ) Active Symbicort 160-4.5 MCG/ACT Inhalation Twice a day 2 puffs 12h Oct, Active Montelukast Sodium 10 mg Orally Once a day at HS 1 tablet in the evening Active Doxepin HCl 25 MG Orally Once a day 1 capsule at bedtime 24h Active RESULTS No Results PROCEDURES No Known procedures IMMUNIZATIONS No Known Immunizations
--- OUTSIDE RECORDS SUMMARY | 2017-04-09 11:54 | XMS REPORT ---
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 856150292 Problem Osteoarthritis of foot M19.079 Active 456737304 Problem PVD (peripheral vascular disease) I73.9 Active 944225646 Problem Edema R60.9 Active 928684698 Problem Anxiety F41.9 Active 77359101 Problem Chronic pain syndrome G89.4 Active 396180527 Problem Chronic obstructive pulmon disease w acute lower resp infct J44.0 Active Problem Rheumatoid arthritis, involving unspecified site, unspecified rheumatoid factor presence M06.9 Active 93772404 Problem Leg pain, left M79.605 Active 127410753 Problem Dysphagia, unspecified dysphagia R13.10 Active 11062232 Problem Insomnia, unspecified type G47.00 Active 432753037 Problem Anemia, unspecified type D64.9 Active 591243975 Problem Depression, unspecified depression type F32.9 Active 54861835 Problem Other chronic pain G89.29 Active 74848310 Problem Iron deficiency anemia, unspecified iron deficiency anemia type D50.9 Active 64427736 Problem Hypertension I10 Active 63531016 Problem COPD (chronic obstructive pulmonary disease) J44.9 Active 05628198 Problem Peripheral vascular disease, unspecified I73.9 Active 861864565 Problem History of cerebrovascular accident with current residual effects I69.90 Active 264948697 Problem Dysthymia F34.1 Active 97552999 Problem Rheumatoid arthritis M06.9 Active 60408692 Problem 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 Diff Drug Allergy Jun, Active SOCIAL HISTORY No smoking Hx information available PLAN OF CARE Activity Details Follow Up 3 Months Reason:RA VITAL SIGNS Height 63 in 2016-07-01 Temperature 97.7 degrees Fahrenheit 2016-07-01 Heart Rate 80 bpm 2016-07-01 Respiratory Rate 2016-07-01 Blood pressure systolic 124 mmHg 2016-07-01 Blood pressure diastolic 68 mmHg 2016-07-01 MEDICATIONS Medication Instructions Dosage Frequency Start Date End Date Duration Status Multi Adult Gummies - Active Symbicort 160-4.5 MCG/ACT Inhalation Twice a day 2 puffs 12h Oct, Active Zoloft 50 mg Orally Once a day 1 tablet 24h Mar, Active Pravastatin Sodium 10 MG TAKE ONE TABLET BY MOUTH ONCE DAILY 30 Active Gabapentin 300 MG TAKE TWO CAPSULES BY MOUTH THREE TIMES DAILY 30 Active Oxygen 2 L/NC by inhalation route all day and nite ... Feb, Active Verapamil HCl CR 120 MG Orally Once a day 1 tablet in the morning with food 24h 90 Active Probiotic - Active Omeprazole 20 mg Orally Once a day 1 capsules 24h Active Albuterol Sulfate (2.5 MG/3ML) 0.083% Inhalation every 6 hrs 3 ml 6h 30 days Active Spiriva Respimat 2.5 MCG/ACT Inhalation Once a day 1 puff 24h Oct, Active Montelukast Sodium 10 mg Orally Once a day at HS 1 tablet in the evening Active Percocet 7.5-325 MG Orally 3 times a day 1 tablet as needed 8h Jun, Active Vitamin C 500 MG Orally twice a day 1 tablet 12h Feb, 30 day(s ) Active Ranitidine HCl 150 MG TAKE ONE TABLET BY MOUTH TWICE DAILY 30 Active Probiotic Advanced - Orally Once a day 1 24h Jun, Active Cetirizine HCl 10 MG Orally Once a day 1 tablet 24h Active Aspirin EC 81 MG Orally Once a day 1 tablet 24h 30 Active RESULTS No Results PROCEDURES Procedure Date Ordered Related Diagnosis Body Site [facility] VISIT ESTABLISHED PATIENT Jul 01, 2016 Office Visit, Est Pt., Level 3 Jul 01, 2016 IMMUNIZATIONS No Known Immunizations
--- OUTSIDE RECORDS SUMMARY | 2017-04-09 11:54 | XMS REPORT ---
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 907759706 Problem Leg pain, left M79.605 Active 662323057 Problem Edema R60.9 Active 565392159 Problem Anxiety F41.9 Active 21300996 Problem Chronic pain syndrome G89.4 Active 087868826 Problem Chronic obstructive pulmon disease w acute lower resp infct J44.0 Active Problem Other chronic pain G89.29 Active 09295412 Problem PVD (peripheral vascular disease) I73.9 Active 147106700 Problem Insomnia, unspecified type G47.00 Active 613467114 Problem Dysphagia, unspecified dysphagia R13.10 Active 35444085 Problem Anemia, unspecified type D64.9 Active 156015364 Problem Depression, unspecified depression type F32.9 Active 03779396 Problem Rheumatoid arthritis, involving unspecified site, unspecified rheumatoid factor presence M06.9 Active 64973376 Problem Iron deficiency anemia, unspecified iron deficiency anemia type D50.9 Active 69428410 Problem 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 484865535 Problem Osteoarthritis of foot M19.079 Active 368096481 Problem Peripheral vascular disease, unspecified I73.9 Active 418016080 Problem History of cerebrovascular accident with current residual effects I69.90 Active 889888786 Problem Rheumatoid arthritis M06.9 Active 85858575 Problem Atrial fibrillation I48.91 Active 91508961 Problem Hypertension I10 Active 42145219 Problem COPD (chronic obstructive pulmonary disease) J44.9 Active 56691250 ALLERGIES Unknown Allergies SOCIAL HISTORY No smoking Hx information available PLAN OF CARE VITAL SIGNS MEDICATIONS Unknown Medications RESULTS No Results PROCEDURES No Known procedures IMMUNIZATIONS No Known Immunizations
--- OUTSIDE RECORDS SUMMARY | 2017-04-09 11:54 | XMS REPORT ---
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 651354904 Problem Leg pain, left M79.605 Active 169806140 Problem Edema R60.9 Active 878684422 Problem Anxiety F41.9 Active 51471243 Problem Chronic pain syndrome G89.4 Active 758220289 Problem Chronic obstructive pulmon disease w acute lower resp infct J44.0 Active Problem Other chronic pain G89.29 Active 45445942 Problem PVD (peripheral vascular disease) I73.9 Active 827502076 Problem Insomnia, unspecified type G47.00 Active 663127242 Problem Dysphagia, unspecified dysphagia R13.10 Active 25434989 Problem Anemia, unspecified type D64.9 Active 150993974 Problem Depression, unspecified depression type F32.9 Active 28154280 Problem Rheumatoid arthritis, involving unspecified site, unspecified rheumatoid factor presence M06.9 Active 53468062 Problem Iron deficiency anemia, unspecified iron deficiency anemia type D50.9 Active 33955691 Problem 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 427980174 Problem Osteoarthritis of foot M19.079 Active 242976698 Problem Peripheral vascular disease, unspecified I73.9 Active 606263565 Problem History of cerebrovascular accident with current residual effects I69.90 Active 429329325 Problem Rheumatoid arthritis M06.9 Active 63871739 Problem Atrial fibrillation I48.91 Active 06547888 Problem Hypertension I10 Active 60275886 Problem COPD (chronic obstructive pulmonary disease) J44.9 Active 60844202 ALLERGIES Unknown Allergies SOCIAL HISTORY No smoking Hx information available PLAN OF CARE VITAL SIGNS MEDICATIONS Unknown Medications RESULTS No Results PROCEDURES No Known procedures IMMUNIZATIONS No Known Immunizations
--- OUTSIDE RECORDS SUMMARY | 2017-04-09 11:54 | XMS REPORT ---
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 431732998 Problem Leg pain, left M79.605 Active 558137934 Problem Edema R60.9 Active 687112890 Problem Anxiety F41.9 Active 89583356 Problem Chronic pain syndrome G89.4 Active 294459082 Problem Chronic obstructive pulmon disease w acute lower resp infct J44.0 Active Problem Other chronic pain G89.29 Active 82675078 Problem PVD (peripheral vascular disease) I73.9 Active 730164001 Problem Insomnia, unspecified type G47.00 Active 612902149 Problem Dysphagia, unspecified dysphagia R13.10 Active 50853677 Problem Anemia, unspecified type D64.9 Active 161889634 Problem Depression, unspecified depression type F32.9 Active 61985060 Problem Rheumatoid arthritis, involving unspecified site, unspecified rheumatoid factor presence M06.9 Active 23950827 Problem Iron deficiency anemia, unspecified iron deficiency anemia type D50.9 Active 23909374 Problem 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 328174895 Problem Osteoarthritis of foot M19.079 Active 103659832 Problem Peripheral vascular disease, unspecified I73.9 Active 555633372 Problem History of cerebrovascular accident with current residual effects I69.90 Active 241852552 Problem Rheumatoid arthritis M06.9 Active 19102889 Problem Atrial fibrillation I48.91 Active 67263200 Problem Hypertension I10 Active 55711949 Problem COPD (chronic obstructive pulmonary disease) J44.9 Active 07541170 ALLERGIES No Information SOCIAL HISTORY Never Assessed PLAN OF CARE VITAL SIGNS MEDICATIONS Medication Instructions Dosage Frequency Start Date End Date Duration Status Voltaren 1 % Transdermal 2 times a day as directed 12h 14 Aug, 2016 Active RESULTS No Results PROCEDURES No Known [...] leukocytosis--[facility] 01/08/16 Hospitalization History pseudomemranous colitis, sepsis--[facility] 04/21/2016 Hospitalization History C Diff--[facility] 05/10/2016 Hospitalization History sepsis, pneumonia, diarrhea--[facility] 06/11/16 Hospitalization History recurrent cdiff, pneumonia-[facility] 07/22/16
--- OUTSIDE RECORDS SUMMARY | 2017-04-09 11:55 | XMS REPORT ---
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 520273218 Problem Leg pain, left M79.605 Active 059450177 Problem Edema R60.9 Active 536098056 Problem Anxiety F41.9 Active 00364327 Problem Chronic pain syndrome G89.4 Active 859876229 Problem Chronic obstructive pulmon disease w acute lower resp infct J44.0 Active Problem Other chronic pain G89.29 Active 99621439 Problem PVD (peripheral vascular disease) I73.9 Active 955610744 Problem Insomnia, unspecified type G47.00 Active 455388697 Problem Dysphagia, unspecified dysphagia R13.10 Active 35671816 Problem Anemia, unspecified type D64.9 Active 564441419 Problem Depression, unspecified depression type F32.9 Active 09186994 Problem Rheumatoid arthritis, involving unspecified site, unspecified rheumatoid factor presence M06.9 Active 56153204 Problem Iron deficiency anemia, unspecified iron deficiency anemia type D50.9 Active 88818779 Problem 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 433936791 Problem Osteoarthritis of foot M19.079 Active 098456796 Problem Peripheral vascular disease, unspecified I73.9 Active 506745275 Problem History of cerebrovascular accident with current residual effects I69.90 Active 223188261 Problem Rheumatoid arthritis M06.9 Active 44908140 Problem Atrial fibrillation I48.91 Active 96199952 Problem Hypertension I10 Active 70112613 Problem COPD (chronic obstructive pulmonary disease) J44.9 Active 79367585 ALLERGIES Unknown Allergies SOCIAL HISTORY No smoking Hx information available PLAN OF CARE VITAL SIGNS MEDICATIONS Medication Instructions Dosage Frequency Start Date End Date Duration Status Vancomycin HCl 125 MG Orally 4 times a day 1 capsule 6h Aug, Aug, 10 day(s) Active RESULTS No Results PROCEDURES No Known procedures IMMUNIZATIONS No Known Immunizations
--- OUTSIDE RECORDS SUMMARY | 2017-04-09 11:55 | XMS REPORT ---
Author Author DAPHNE YUSUF Organization 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 857412658 Problem Leg pain, left M79.605 Active 611845232 Problem Edema R60.9 Active 236393024 Problem Anxiety F41.9 Active 50644072 Problem Chronic pain syndrome G89.4 Active 673887020 Problem Chronic obstructive pulmon disease w acute lower resp infct J44.0 Active Problem Other chronic pain G89.29 Active 52874016 Problem PVD (peripheral vascular disease) I73.9 Active 846073180 Problem Insomnia, unspecified type G47.00 Active 142395698 Problem Dysphagia, unspecified dysphagia R13.10 Active 52020580 Problem Anemia, unspecified type D64.9 Active 000608312 Problem Depression, unspecified depression type F32.9 Active 96228881 Problem Rheumatoid arthritis, involving unspecified site, unspecified rheumatoid factor presence M06.9 Active 89590262 Problem Iron deficiency anemia, unspecified iron deficiency anemia type D50.9 Active 66034973 Problem 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 030132974 Problem Osteoarthritis of foot M19.079 Active 851228526 Problem Peripheral vascular disease, unspecified I73.9 Active 557856690 Problem History of cerebrovascular accident with current residual effects I69.90 Active 662785324 Problem Rheumatoid arthritis M06.9 Active 15010392 Problem Atrial fibrillation I48.91 Active 21898076 Problem Hypertension I10 Active 57396475 Problem COPD (chronic obstructive pulmonary disease) J44.9 Active 82223799 ALLERGIES Unknown Allergies SOCIAL HISTORY No smoking Hx information available PLAN OF CARE VITAL SIGNS MEDICATIONS Medication Instructions Dosage Frequency Start Date End Date Duration Status Hydrocodone-Acetaminophen 10-325 MG Orally 3 times a day 1 tablet as needed 8h Jun, Aug, 28 days Active Xanax 0.5 MG Orally Once a day 1 tablet at bedtime 24h Jan, 28 days Active RESULTS No Results PROCEDURES No Known procedures IMMUNIZATIONS No Known Immunizations
--- OUTSIDE RECORDS SUMMARY | 2017-04-09 11:56 | XMS REPORT ---
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 701158254 Problem Leg pain, left M79.605 Active 998274313 Problem Edema R60.9 Active 663763183 Problem Anxiety F41.9 Active 34793828 Problem Chronic pain syndrome G89.4 Active 755223636 Problem Chronic obstructive pulmon disease w acute lower resp infct J44.0 Active Problem Other chronic pain G89.29 Active 37300483 Problem PVD (peripheral vascular disease) I73.9 Active 869160118 Problem Insomnia, unspecified type G47.00 Active 583189940 Problem Dysphagia, unspecified dysphagia R13.10 Active 87872748 Problem Anemia, unspecified type D64.9 Active 245648043 Problem Depression, unspecified depression type F32.9 Active 74135789 Problem Rheumatoid arthritis, involving unspecified site, unspecified rheumatoid factor presence M06.9 Active 68421161 Problem Iron deficiency anemia, unspecified iron deficiency anemia type D50.9 Active 74177834 Problem 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 141346384 Problem Osteoarthritis of foot M19.079 Active 503795929 Problem Peripheral vascular disease, unspecified I73.9 Active 688600316 Problem History of cerebrovascular accident with current residual effects I69.90 Active 759083471 Problem Rheumatoid arthritis M06.9 Active 07500351 Problem Atrial fibrillation I48.91 Active 24490926 Problem Hypertension I10 Active 48652195 Problem COPD (chronic obstructive pulmonary disease) J44.9 Active 51194457 ALLERGIES No Information SOCIAL HISTORY Never Assessed PLAN OF CARE VITAL SIGNS MEDICATIONS Medication Instructions Dosage Frequency Start Date End Date Duration Status Hydrocodone-Acetaminophen 10-325 MG Orally 3 times a day 1 tablet as needed 8h 11 Aug, 2016 28 days Active RESULTS No Results PROCEDURES [...] leukocytosis--[facility] 01/08/16 Hospitalization History pseudomemranous colitis, sepsis--[facility] 04/21/2016 Hospitalization History C Diff--[facility] 05/10/2016 Hospitalization History sepsis, pneumonia, diarrhea--[facility] 06/11/16 Hospitalization History recurrent cdiff, pneumonia-[facility] 07/22/16
--- OUTSIDE RECORDS SUMMARY | 2017-04-09 11:58 | XMS REPORT ---
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 824217906 Problem Leg pain, left M79.605 Active 492118708 Problem Edema R60.9 Active 041870762 Problem Anxiety F41.9 Active 49828669 Problem Chronic pain syndrome G89.4 Active 212926729 Problem Chronic obstructive pulmon disease w acute lower resp infct J44.0 Active Problem Other chronic pain G89.29 Active 45846229 Problem PVD (peripheral vascular disease) I73.9 Active 149675154 Problem Insomnia, unspecified type G47.00 Active 014067369 Problem Dysphagia, unspecified dysphagia R13.10 Active 96436872 Problem Anemia, unspecified type D64.9 Active 932796030 Problem Depression, unspecified depression type F32.9 Active 60281668 Problem Rheumatoid arthritis, involving unspecified site, unspecified rheumatoid factor presence M06.9 Active 02858122 Problem Iron deficiency anemia, unspecified iron deficiency anemia type D50.9 Active 68356909 Problem 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 215918889 Problem Osteoarthritis of foot M19.079 Active 622796501 Problem Peripheral vascular disease, unspecified I73.9 Active 923505194 Problem History of cerebrovascular accident with current residual effects I69.90 Active 137668180 Problem Rheumatoid arthritis M06.9 Active 64739508 Problem Atrial fibrillation I48.91 Active 17241155 Problem Hypertension I10 Active 03145715 Problem COPD (chronic obstructive pulmonary disease) J44.9 Active 03701151 ALLERGIES Unknown Allergies SOCIAL HISTORY No smoking Hx information available PLAN OF CARE VITAL SIGNS MEDICATIONS Medication Instructions Dosage Frequency Start Date End Date Duration Status Xanax 0.5 MG Orally Once a day 1 tablet at bedtime 24h Jan, 28 days Active RESULTS No Results PROCEDURES No Known procedures IMMUNIZATIONS No Known Immunizations
--- OUTSIDE RECORDS SUMMARY | 2017-04-09 11:59 | XMS REPORT ---
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 864942736 Problem Leg pain, left M79.605 Active 765068259 Problem Edema R60.9 Active 218172627 Problem Anxiety F41.9 Active 99748384 Problem Chronic pain syndrome G89.4 Active 563418530 Problem Chronic obstructive pulmon disease w acute lower resp infct J44.0 Active Problem Other chronic pain G89.29 Active 41870114 Problem PVD (peripheral vascular disease) I73.9 Active 971768957 Problem Insomnia, unspecified type G47.00 Active 499450145 Problem Dysphagia, unspecified dysphagia R13.10 Active 87343669 Problem Anemia, unspecified type D64.9 Active 894829244 Problem Depression, unspecified depression type F32.9 Active 32571889 Problem Rheumatoid arthritis, involving unspecified site, unspecified rheumatoid factor presence M06.9 Active 98841977 Problem Iron deficiency anemia, unspecified iron deficiency anemia type D50.9 Active 45556602 Problem 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 729645427 Problem Osteoarthritis of foot M19.079 Active 122516058 Problem Peripheral vascular disease, unspecified I73.9 Active 361887622 Problem History of cerebrovascular accident with current residual effects I69.90 Active 814837225 Problem Rheumatoid arthritis M06.9 Active 42697154 Problem Atrial fibrillation I48.91 Active 97103150 Problem Hypertension I10 Active 55639381 Problem COPD (chronic obstructive pulmonary disease) J44.9 Active 44699398 ALLERGIES Unknown Allergies SOCIAL HISTORY No smoking Hx information available PLAN OF CARE VITAL SIGNS MEDICATIONS Unknown Medications RESULTS No Results PROCEDURES No Known procedures IMMUNIZATIONS No Known Immunizations
--- OUTSIDE RECORDS SUMMARY | 2017-04-09 12:03 | XMS REPORT ---
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 434647293 Problem Osteoarthritis of foot M19.079 Active 132634553 Problem PVD (peripheral vascular disease) I73.9 Active 740727613 Problem Edema R60.9 Active 505828302 Problem Anxiety F41.9 Active 53664419 Problem Chronic pain syndrome G89.4 Active 166614864 Problem Chronic obstructive pulmon disease w acute lower resp infct J44.0 Active Problem Rheumatoid arthritis, involving unspecified site, unspecified rheumatoid factor presence M06.9 Active 34967505 Problem Leg pain, left M79.605 Active 952526180 Problem Dysphagia, unspecified dysphagia R13.10 Active 90928478 Problem Insomnia, unspecified type G47.00 Active 091389710 Problem Anemia, unspecified type D64.9 Active 290344731 Problem Depression, unspecified depression type F32.9 Active 01099863 Problem Other chronic pain G89.29 Active 06923728 Problem Iron deficiency anemia, unspecified iron deficiency anemia type D50.9 Active 69410960 Problem Hypertension I10 Active 21092513 Problem COPD (chronic obstructive pulmonary disease) J44.9 Active 43169940 Problem Peripheral vascular disease, unspecified I73.9 Active 085035610 Problem History of cerebrovascular accident with current residual effects I69.90 Active 466454624 Problem Dysthymia F34.1 Active 20262610 Problem Rheumatoid arthritis M06.9 Active 17409563 Problem 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
[2017-04-09] MEDS ORDERED: DEXAMETHASONE 4 MG/ML SDV (DECADRON) IH ONE (12:15)
[2017-04-09] MEDS ORDERED: RT-ALBUTEROL/IPRATROPIUM 3 ML (DUONEB) VIAL INH ONE ×2 (12:15→13:15)
[2017-04-09] MEDS ORDERED: NS IV 1000 ML 1,000 ML IV ONE (12:18)
[2017-04-09 12:21] LABS: BASOPHILS # (AUTO) 0.1 10^3/uL (0.0-0.1); BASOPHILS % (AUTO) 0 % (0-10); EOSINOPHILS % (AUTO) 0 % (0-10); LYMPHOCYTES % (AUTO) 8 % (12-44); MEAN CORPUSCULAR HEMOGLOBIN 30 PG (25-34); MEAN CORPUSCULAR HGB CONC 32 G/DL (32-36); MEAN CORPUSCULAR VOLUME 92 FL (80-99); MONOCYTES # (AUTO) 2.5 X 10^3 (0.0-1.0); MONOCYTES % (AUTO) 7 % (0-12); NEUTROPHILS # (AUTO) 30.8 X 10^3 (1.8-7.8); NEUTROPHILS % (AUTO) 85 % (42-75); PLATELET COUNT 344 10^3/uL (130-400); RED BLOOD COUNT 4.68 10^6/uL (4.35-5.85); RED CELL DISTRIBUTION WIDTH 14.9 % (10.0-14.5)
--- NOTE | 2017-04-09 12:25 | ED General ---
General Chief Complaint: Fever-Adult/Adol Stated Complaint: FEVER/N/V/DIARRHEA Source of Information: Patient (VERY LIMITED HISTORIAN), Family (SON GIVES MOST INFORMATION), Old Records History of Present Illness Time Seen by Provider: 11:57 Initial Comments PT ARRIVES VIA POV FROM HOME, WITH HER SON ( PT LIVES WITH MALE S.O. AND HIS BROTHER, AND SON AND DAUGHTER FREQUENTLY CHECK ON PT) PT STATS SHE BEGAN FEELING ILL SOMETIME DURING THE NIGHT--STATES SHE FELT FINE ALL DAY YESTERDAY AND SON REPORTS THAT SHE APPEARED WELL WHEN HE SAW HER AT 1930 LAST PM C/O NAUSEA/VOMITING/DIARRHEA --EMESIS X 5, DIARRHEA X 1, BUT HAD 2 LARGE NORMAL BM'S BEFORE DIARRHEAL STOOL C/O SUBJECTIVE FEVER--HAS NOT TAKEN ANYTHING FOR FEVER PT HAS CHRONIC NON-PRODUCTIVE COUGH WELL SHORTNESS OF BREATH--HAS COPD AND WEARS O2 AT 2L/NC CONTINUOUSLY--O2 SAT 90% ON 2L/NC ON ARRIVAL. C/O ABDOMEN FEELING "HARD" AND SORE ALL OVER PT UNABLE TO STATE WHEN SHE LAST VOIDED, BUT WAS IN BATHROOM IN WAITING ROOM AND REPORTEDLY URINATED THEN. HAS NOT TAKEN ANY OF HER MEDICATIONS TODAY AND HAS NOT USED HER NEBULIZER TODAY EITHER. NO KNOWN SICK CONTACTS OR SUSPICIOUS FOODS FAMILY REPORTS SHE IS MORE CONFUSED THAN USUAL TODAY PT DOES HAVE A HISTORY OF RECURRENT C. 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 DAPHNE YUSUF Allergies and Home Medications Allergies Coded Allergies: levofloxacin (Verified Allergy, Severe, C-DIFF, 12/17/16) ceftriaxone (Verified Allergy, Unknown, 12/17/16) Home Medications Albuterol Sulfate 2.5 Mg/3 Ml Vial.neb, 2.5 MG NEB Q6H PRN for SHORTNESS OF BREATH, (Reported) Alprazolam 0.5 Mg Tablet, 0.5 MG PO HS, (Reported) Ascorbate Calcium 500 Mg Tablet, 1,000 MG PO DAILY, (Reported) Aspirin 81 Mg Tablet.dr, 81 MG PO HS, (Reported) Budesonide/Formoterol Fumarate 10.2 Gm Hfa.aer.ad, 2 PUFF PO BID, (Reported) Cefdinir 300 Mg Capsule, 300 MG PO BID for 4 Days Prescribed by: VENESSA AYALA on 01/09/17 1037 Cetirizine HCl 10 Mg Tablet, 10 MG PO DAILY, (Reported) Cholecalciferol (Vitamin D3) 1,000 Unit Tablet, 1,000 UNIT PO DAILY, (Reported) Diclofenac Sodium 100 Gm Gel..gram., TP BID, (Reported) Doxepin HCl 25 Mg Capsule, 25 MG PO HS, (Reported) Esomeprazole Magnesium 40 Mg Cap, 40 MG PO DAILY, (Reported) Etanercept 50 Mg/1 Ml Syringe, 50 MG INJ Tu, (Reported) Gabapentin 600 Mg Tablet, 600 MG PO TID, (Reported) L.acidoph & Paracasei,B.lactis 1 Each Capsule, 1 CAP PO BID, (Reported) Montelukast Sodium 10 Mg Tablet, 10 MG PO DAILY, (Reported) Multivitamin 1 Each Tab.chew, 1 TAB.CHEW PO BID, (Reported) Oxycodone HCl/Acetaminophen 1 Each Tablet, 1 TAB PO Q4H PRN for PAIN-MODERATE, # 15 Prescribed by: VENESSA AYALA on 01/09/17 1037 Pravastatin Sodium 10 Mg Tablet, 10 MG PO HS, (Reported) Prednisone 10 Mg Tab.ds.pk, 10 MG PO DAILY, #21 Take 6 tabs(60mg)daily,decrease by 1 tab(10MG)daily. Prescribed by: VENESSA AYALA on 01/09/17 1037 Ranitidine HCl 150 Mg Tablet, 150 MG PO BID, (Reported) Sertraline HCl 50 Mg Tablet, 50 MG PO DAILY, (Reported) Tiotropium [place] 4 Gm Mist.inhal, 2.5 MCG PO DAILY, (Reported) Verapamil HCl 120 Mg Tablet.er, 120 MG PO DAILY, (Reported) Constitutional: see HPI, fever, malaise EENTM: no symptoms reported Respiratory: see HPI, cough, dyspnea on exertion, short of breath Cardiovascular: no symptoms reported Gastrointestinal: see HPI, abdominal pain, diarrhea, loss of appetite, nausea, vomiting Genitourinary: no symptoms reported Musculoskeletal: no symptoms reported Skin: no symptoms reported Psychiatric/Neurological: No Symptoms Reported Hematologic/Lymphatic: No Symptoms Reported Immunological/Allergic: no symptoms reported Past Ucibokf-Sgjgba-Osfmgd Hx Patient Social History Alcohol Use: Past History (NONE FOR YEARS) Recreational Drug Use: No Smoking Status: Former Smoker Type Used: Cigarettes Former Smoker, Quit: Dec 11, 2014 2nd Hand Smoke Exposure: No Recent Foreign Travel: No Contact w/Someone Who Travel: No Recent Hopitalizations: No Immunizations Up To Date Tetanus Booster (TDap): Unknown PED Vaccines UTD: Yes Date of Pneumonia Vaccine: Aug 05, 2013 Date of Influenza Vaccine: Apr 12, 2016 Seasonal Allergies Seasonal Allergies: Yes Surgeries History of Surgeries: Yes ( RIGHT TOTAL HIP REPLACEMENT; BILATERAL LEG STENTS AND VASCULAR PROCEDURES; RIGHT TOTAL KNEE REPLACEMENT 12/2016; LEFT FOOT PARTIAL AMPUTATION; ENDOSCOPIES) Surgeries: Joint Replacement, Orthopedic, Vascular Surgery Respiratory History of Respiratory Disorde: Yes (O2 2L NC AT NIGHT AND PRN) Respiratory Disorders: Pneumonia, Chronic Bronchitis, COPD, Emphysema Currently Using CPAP: No Currently Using BIPAP: No Cardiovascular History of Cardiac Disorders: Yes (CAROTID DISEASE--COMPLETE OCCLUSION OF LEFT CAROTID) Cardiac Disorders: High Cholesterol, Hypertension, Peripheral Vascular Neurological History of Neurological Disord: Yes (DYSPHAGIA, DYSARTHRIA; RIGHT SIDE WEAKNESS --POST CVA) Neurological Disorders: Dementia, Stroke Reproductive System Hx Reproductive Disorders: No Sexually Transmitted Disease: No HIV/AIDS: No Female Reproductive Disorders: Denies [employer]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 ) Musculoskeletal Disorders: Arthritis, Rheumatoid Arthritis Endocrine History of Endocrine Disorders: No HEENT History of HEENT Disorders: Yes (GLASSES) HEENT Disorders: Dysphagia, Tinnitis Loss of Vision: Bilateral Hearing Impairment: Denies Cancer History of Cancer: No Psychosocial History of Psychiatric Problem: Yes Behavioral Health Disorders: Sleep Difficulties, Anxiety, Depression Integumentary History of Skin or Integumenta: No Blood Transfusions History of Blood Disorders: No Adverse Reaction to a Blood Tr: No Family Medical History Significant Family History: Heart Disease Family Medial History: Cancer 09 SISTER Family history: Arthritis 09 BROTHER 09 SISTER Family history: Cardiovascular disease 09 SISTER Family history: Thyroid disorder 09 SISTER Malignant neoplasm of lung 09 SISTER Physical Exam Vital Signs Vital Sign - Last 12Hours 04/09/17 12:05 Temp 101.3 Pulse 111 Resp 18 B/P (MAP) 115/60 Pulse Ox 90 O2 Delivery Nasal Cannula O2 Flow Rate 2.00 Capillary Refill : General Appearance: WD/WN, Other (SOMEWHAT LETHARGIC) HEENT: PERRL/EOMI, Other (ORAL MUCOSA MOIST) Neck: Full Range of Motion, Normal Inspection, Non Tender, Supple Respiratory: Other (DIFFUSE BILATERAL WHEEZING AND RALES) Cardiovascular: No JVD, No Murmur, Tachycardia Gastrointestinal: Abnormal Bowel Sounds (DECREASED ), Distended (AND FIRM), Tenderness (MILD DIFFUSE TENDERNESS) Extremity: Normal Capillary Refill, Normal Range of Motion, Non Tender, No Calf Tenderness, No Pedal Edema, Other (LEFT FOOT PARTIAL AMPUTATION) Neurologic/Psychiatric: Alert (BUT SOMEWHAT LETHARGIC), Motor Weakness (MILD RIGHT SIDED WEAKNESS--NORMAL POST CVA), Other (SOME EXPRESSIVE APHASIA/ DYSARTHRIA, CONFUSED TO PLACE, TIME, SITUATION) Skin: Warm/Dry, Pallor Focused Exam Evaluation Lactate Level Laboratory Tests 04/09/17 14:00: Lactic Acid Level 1.97 Lactic Acid Level Laboratory Tests Test 04/09/17 14:00 Lactic Acid Level 1.97 MMOL/L (0.50-2.00) Progress/Results/Core Measures Results/Orders Lab Results Laboratory Tests Test 04/09/17 10:10 04/09/17 13:54 04/09/17 14:00 Range/Units White Blood Count 36.3 *H 4.3-11.0 10^3/uL Red Blood Count 4.68 4.35-5.85 10^6/uL Hemoglobin 13.8 11.5-16.0 G/DL Hematocrit 43 35-52 % Mean Corpuscular Volume 92 80-99 FL Mean Corpuscular Hemoglobin 30 25-34 PG Mean Corpuscular Hemoglobin Concent 32 32-36 G/DL Red Cell Distribution Width 14.9 H 10.0-14.5 % Platelet Count 344 130-400 10^3/uL Mean Platelet Volume 10.0 7.4-10.4 FL Neutrophils (%) (Auto) 85 H 42-75 % Lymphocytes (%) (Auto) 8 L 12-44 % Monocytes (%) (Auto) 7 0-12 % Eosinophils (%) (Auto) 0 0-10 % Basophils (%) (Auto) 0 0-10 % Neutrophils # (Auto) 30.8 H 1.8-7.8 X 10^3 Lymphocytes # (Auto) 3.0 1.0-4.0 X 10^3 Monocytes # (Auto) 2.5 H 0.0-1.0 X 10^3 Eosinophils # (Auto) 0.0 0.0-0.3 10^3/uL Basophils # (Auto) 0.1 0.0-0.1 10^3/uL Neutrophils % (Manual) 52 % Lymphocytes % (Manual) 3 % Monocytes % (Manual) 8 % Eosinophils % (Manual) 0 % Basophils % (Manual) 0 % Band Neutrophils 32 % Atypical Lymphocytes % Reactive Lymphocytes 5 % Poikilocytosis SLIGHT Stomatocytes SLIGHT Sodium Level 140 135-145 MMOL/L Potassium Level 4.2 3.6-5.0 MMOL/L Chloride Level 103 98-107 MMOL/L Carbon Dioxide Level 22 21-32 MMOL/L Anion Gap 15 H 5-14 MMOL/L Blood Urea Nitrogen 28 H 7-18 MG/DL Creatinine 1.08 0.60-1.30 MG/DL Estimat Glomerular Filtration Rate 51 BUN/Creatinine Ratio 26 Glucose Level 125 H 70-105 MG/DL Calcium Level 9.3 8.5-10.1 MG/DL Total Bilirubin 2.0 H 0.1-1.0 MG/DL Aspartate Amino Transf (AST/SGOT) 28 5-34 U/L Alanine Aminotransferase (ALT/SGPT) 26 0-55 U/L Alkaline Phosphatase 96 40-136 U/L Total Protein 8.3 H 6.4-8.2 GM/DL Albumin 3.8 3.2-4.5 GM/DL Amylase Level 35 25-125 U/L Lipase < 4 L 8-78 U/L Urine Color ANTWON H Urine Clarity SLIGHTLY CLOUDY Urine pH 5 5-9 Urine Specific [place] 1.015 L 1.016-1.022 Urine Protein 1+ H NEGATIVE Urine Glucose (UA) NEGATIVE NEGATIVE Urine Ketones NEGATIVE NEGATIVE Urine Nitrite NEGATIVE NEGATIVE Urine Bilirubin 1+ H NEGATIVE Urine Urobilinogen 1 NORMAL MG/DL Urine Leukocyte Esterase 1+ H NEGATIVE Urine RBC (Auto) NEGATIVE NEGATIVE Urine RBC NONE /HPF Urine WBC 0-2 /HPF Urine Squamous Epithelial Cells 10-25 H /HPF Urine Renal Epithelial Cells NONE /HPF Urine Crystals NONE /LPF Urine Bacteria FEW H /HPF Urine Casts PRESENT /LPF Urine Hyaline Casts 10-25 H /LPF Urine Mucus LARGE H /LPF Urine Culture Indicated NO Lactic Acid Level 1.97 0.50-2.00 MMOL/L Micro Results Microbiology 04/09/17 Influenza Types A,B Antigen (PRITI) - Final, Complete My Orders Orders - AVTAR WILDER DO Saline Lock/Iv-Start (04/09/17 11:58) Amylase (04/09/17 11:58) Cbc With Automated Diff (04/09/17 11:58) Comprehensive Metabolic Panel (04/09/17 11:58) Lactic Acid Analyzer (04/09/17 11:58) Lipase (04/09/17 11:58) Ua Culture If Indicated (04/09/17 11:58) Blood Culture (04/09/17 11:58) Saline Lock/Iv-Start (04/09/17 11:58) Albuterol/Ipra Inhalation Soln (Duoneb I (04/09/17 12:15) Dexamethasone Injection (Decadron Inject (04/09/17 12:15) Rt Request For Service (04/09/17 12:12) Svn Sm Volume Nebulizer Rt-Rfs (04/09/17 12:12) Saline Lock/Iv-Start (04/09/17 12:18) Ns Iv 1000 Ml (Sodium Chloride 0.9%) (04/09/17 12:18) Acetaminophen Tablet (Tylenol Tablet) (04/09/17 12:30) Chest 1 View, Ap/Pa Only (04/09/17 12:27) Ct Chest/Abdomen/Pelvis Wo (04/09/17 12:27) Manual Differential (04/09/17 10:10) Saline Lock/Iv-Start (04/09/17 12:32) Lactated Ringers (Lr 1000 Ml Iv Solution (04/09/17 12:32) Ondansetron Injection (Zofran Injectio (04/09/17 12:45) Ekg Tracing (04/09/17 12:39) Catheter(Urinary) Insert & Ass 03,15 (04/09/17 12:39) O2 (04/09/17 12:39) Monitor-Rhythm Ecg Trace Only (04/09/17 12:39) Piperacillin Sodium/Tazobactam (Zosyn Vi (04/09/17 13:15) Methylprednisolone Sod Succ (Solu-Medrol (04/09/17 13:15) Albuterol/Ipra Inhalation Soln (Duoneb I (04/09/17 13:15) Rt Request For Service (04/09/17 13:13) Svn Sm Volume Nebulizer Rt-Rfs (04/09/17 13:13) Albuterol Pre-Mix Nebs (Rt) (Proventil P (04/09/17 13:41) Influenza A And B Antigens (04/09/17 14:10) Medications Given in ED Current Medications Medications Dose Ordered Sig/Terrance Route Start Time Stop Time Status Last Admin Dose Admin Acetaminophen 1,000 mg ONCE ONCE PO 04/09/17 12:30 04/09/17 12:31 DC 04/09/17 12:36 1,000 MG Albuterol/ Ipratropium 3 ml ONCE ONCE INH 04/09/17 12:15 04/09/17 12:16 DC 04/09/17 12:27 3 ML Dexamethasone Sodium Phosphate 20 mg ONCE ONCE IH 04/09/17 12:15 04/09/17 12:16 DC 04/09/17 12:27 20 MG Lactated Ringer's 1,000 ml @ 0 mls/hr Q0M ONCE IV 04/09/17 12:32 04/09/17 12:33 DC 04/09/17 12:41 999 MLS/HR Sodium Chloride 1,000 ml @ 0 mls/hr Q0M ONCE IV 04/09/17 12:18 04/09/17 12:19 DC 04/09/17 12:36 999 MLS/HR Vital Signs/I&O Vital Sign - Last 12Hours 04/09/17 04/09/17 04/09/17 04/09/17 12:05 12:10 12:25 12:36 Temp 101.3 101.3 Pulse 111 Resp 18 B/P (MAP) 115/60 Pulse Ox 90 93 95 O2 Delivery Nasal Cannula Nasal Cannula Nasal Cannula O2 Flow Rate 2.00 3.00 3.00 04/09/17 13:58 Pulse Ox 95 O2 Delivery Nasal Cannula O2 Flow Rate 4.00 Progress Note : Progress Note O2 SATS UP TO 93-94% ON O2 AT 4L/NC NO DETERIORATION IN PT'S CONDITION DURING ER STAY AT TIME OF ADMIT, BP 119/58, HR 112 ( AFTER HOUR-SANTO NEB TX WITH ALBUTEROL) , O2 SAT 94% ON 4L/NC, AND PT HAS HAD > 150 ML URINE OUTPUT IN ER, PLUS VOIDED IN WAITING ROOM JUST PRIOR TO BEING BROUGHT BACK TO ROOM TEMP DOWN TO 100.3 AT TIME OF ADMIT. VERY MINIMAL RESIDUAL EXPIRATORY WHEEZING AND VERY MINIMAL RALES AFTER HOUR LONG NEB TREATMENT ECG Initial ECG Impression Time: 12:52 Initial ECG Rate: 106 Initial ECG Rhythm: S.Tach Initial ECG Comparisson: No Previous ECG Available Diagnostic Imaging Comments CXR-- RIGHT SIDED PNEUMONIA, MINIMAL VASCULAR CONGESTION--PER RADIOLOGIST REPORT @ 1320 CT CHEST/ABDOMEN/PELVIS--DIFFUSE RIGHT SIDED PNEUMONIA, LLL PNEUMONIA, HEPATIC STEATOSIS--PER RADIOLOGIST REPORT @ 1419 Reviewed: Reviewed by Me Departure Communication (Admissions) Progress Notes 1300--SPOKE WITH DR. JIMENEZ, FOREIGN SERVICE TEACHER FOR [facility]. ACCEPTS PT FOR ADMIT Impression Impression: Primary Impression: Sepsis Additional Impression: Pneumonia Disposition: ADMITTED INPATIENT Condition: Stable Admissions Decision to Admit Reason: Admit from ER (General) Decision to Admit/Date: Apr 09, 2017 Time/Decision to Admit Time: 13:00 Departure-Patient Inst. Referrals: [facility] ([facility] Primary Care Physician DAPHNE YUSUF (Family) Primary Care Physician AVTAR WILDER DO Apr 09, 2017 12:25
[2017-04-09 12:28] LABS: WHITE BLOOD COUNT 36.3 10^3/uL (4.3-11.0)
[2017-04-09] MEDS ORDERED: ACETAMINOPHEN 500 MG TAB (TYLENOL) PO ONE (12:30)
[2017-04-09] MEDS ORDERED: LACTATED RINGERS 1,000 ML IV ONE (12:32)
[2017-04-09 12:39] LABS: ALANINE AMINOTRANSFERASE 26 U/L (0-55); ALBUMIN 3.8 GM/DL (3.2-4.5); AMYLASE 35 U/L (25-125); ANION GAP 15 MMOL/L (5-14); ASPARTATE AMINO TRANSFERASE 28 U/L (5-34); BLOOD UREA NITROGEN 28 MG/DL (7-18); BUN/CREATININE RATIO 26; CALCIUM 9.3 MG/DL (8.5-10.1); CARBON DIOXIDE 22 MMOL/L (21-32); CHLORIDE 103 MMOL/L (98-107); CREATININE SERUM 1.08 MG/DL (0.60-1.30); GFR ESTIMATED 51; GLUCOSE 125 MG/DL (70-105); LIPASE < 4 U/L (8-78); POTASSIUM 4.2 MMOL/L (3.6-5.0); SODIUM 140 MMOL/L (135-145); TOTAL PROTEIN 8.3 GM/DL (6.4-8.2)
[2017-04-09] MEDS ORDERED: ONDANSETRON 4 MG/2 ML (SDV) Z0FRAN IVP ONE (12:45)
[2017-04-09 12:49] LABS: BAND NEUTROPHILS 32 %; BASOPHILS % (MANUAL) 0 %; EOSINOPHILS % (MANUAL) 0 %; LYMPHOCYTES % (MANUAL) 3 %; NEUTROPHILS % (MANUAL) 52 %; POIKILOCYTOSIS SLIGHT; REACTIVE LYMPHOCYTES 5 %; STOMATOCYTES SLIGHT
--- NOTE | 2017-04-09 12:58 | Diagnostic Imaging Report ---
Portable upright radiograph of the chest. INDICATION: Cough and shortness of breath. COMPARISON: 01/09/17. FINDINGS: There are patchy infiltrates in the right perihilar and right basilar regions. The left lung is relatively clear with minimal background vascular congestion. There is mild cardiomegaly. No effusion or pneumothorax The mediastinum and beny appear unremarkable. IMPRESSION: Right perihilar and basilar patchy infiltrates concerning for pneumonia. There is minimal background vascular congestion. Dictated by: Dictated on workstation # [id number]
[2017-04-09] MEDS ORDERED: methylPREDNISolone 125 MG (Solu-MEDROL) VIAL IVP ONE (13:15)
[2017-04-09] MEDS ORDERED: PIPERACILLIN SODIUM/TAZOBACTAM 4.5 GM in NS (IVPB) 100 ML IV ONE (13:15)
[2017-04-09] MEDS ORDERED: RT-ALBUTEROL SULF 2.5 MG/3 ML PRE-MIX VIAL ONE (13:41)
[2017-04-09 14:08] LABS: BILIRUBIN,URINE 1+ (NEGATIVE); KETONES,URINE NEGATIVE (NEGATIVE); LEUKOCYTE ESTERASE ,URINE 1+ (NEGATIVE); NITRITE,URINE NEGATIVE (NEGATIVE); PH,URINE 5 (5-9); PROTEIN,URINE 1+ (NEGATIVE); UROBILINOGEN,URINE 1 MG/DL (NORMAL)
--- NOTE | 2017-04-09 14:15 | Diagnostic Imaging Report ---
PROCEDURE: CT chest, abdomen, and pelvis without contrast. TECHNIQUE: Multiple contiguous axial images were obtained through the chest, abdomen, and pelvis without the use of intravenous contrast. INDICATION: Cough and congestion. FINDINGS: CT chest: Patchy areas of consolidation mostly in the right lung involving the right upper lobe, and to a lesser extent right middle and right lower lobes is seen. There is mild consolidation in the posterior segment of the left lower lobe as well. The appearance is in favor of pneumonia. There is slight septal thickening which may relate to mild vascular congestion. The thoracic aorta is normal in caliber. The heart size is at the upper limits of normal. There are borderline-sized lymph nodes seen in the mediastinum and axillae. The hilar vessels are not opacified with no obvious significant hilar lymphadenopathy seen. The osseous structures appear grossly unremarkable. CT abdomen and pelvis: There is diffuse hepatic steatosis. The gallbladder, the spleen, the adrenal glands, and the pancreas appear unremarkable. The abdominal aorta is normal in caliber. There are bilateral common iliac stents extending into the distal abdominal aorta noted. No kidney stones. No hydronephrosis is seen. No significant free fluid or fluid collection is seen in the abdomen or pelvis. No bowel obstruction. There is right hip replacement which results in significant beam hardening artifacts obscuring structures in the pelvis. Castillo catheter is seen in the urinary bladder. There is slight scoliotic curvature, convex to the left, in the lumbar spine and mild degenerative changes seen. Mild diastasis of the recti is seen around the umbilicus level. IMPRESSION: CT chest: Patchy areas of consolidation mostly involving the right lung are concerning for pneumonia. CT abdomen and pelvis: Hepatic steatosis. No urinary tract stones or hydronephrosis. Dictated by: Dictated on workstation # [id number]
--- OUTSIDE RECORDS SUMMARY | 2017-04-09 14:36 | XMS REPORT | Clinical Summary ---
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 Social History Tobacco Use Types Packs/Day Years Used Date Former Smoker Quit: 05/28/2013 Sex Assigned at Date Recorded Not on file Last Filed Vital Signs Vital Sign Reading Time Taken Blood Pressure 146/59 07/04/2013 2:19 PM [employer] Pulse 73 07/04/2013 2:19 PM [employer] Temperature 35.9 C (96.6 F) 07/04/2013 2:17 PM [employer] Respiratory Rate 14 07/04/2013 2:17 PM [employer] Oxygen Saturation - - Inhaled Oxygen - - Concentration Weight 59 kg (130 lb) 07/04/2013 2:17 PM [employer] Height 160 cm (5' 3") 07/04/2013 2:17 PM [employer] Body Mass Index 23.03 07/04/2013 2:17 PM [employer] Plan of Treatment Health Maintenance Due Date Last Done Comments HEPATITIS C SCREENING 1949 PHYSICAL (COMPREHENSIVE) 1956 EXAM PERTUSSIS VACCINE 1960 TETANUS VACCINE 1966 BREAST CANCER SCREENING 1989 COLORECTAL CANCER 1999 SCREENING SHINGLES VACCINE 2009 OSTEOPOROSIS SCREENING 2014 PREVNAR/PNEUMOVAX (#1) 2014 INFLUENZA VACCINE 04/12/2017 Results Not on filefrom Last 3 Months
--- NOTE | 2017-04-09 14:41 | History & Physicial (CHS) ---
HPI History of Present Illness: Lona Coburn is a 66-year-old female who presented to the emergency department earlier today with complaints of fever, chills, nausea, vomiting, diarrhea, and abdominal pain since yesterday night. She was found to have a white count of 36.3 as well as a fever of 101.3 upon arrival. Patient had a chest x-ray which demonstrated a right sided pneumonia. Due to her complaints of abdominal pain as well as her pneumonia she had a CT of her chest abdomen and pelvis which demonstrated a right middle and lower lobe pneumonia as well as steatohepatitis. The patient wears 2 L of oxygen at baseline due to COPD, and upon arrival to the ED was found to have an O2 saturation of 90 percent on her baseline oxygen requirement. She was placed on 4 L nasal cannula and her sats have been 93 percent since that time. In addition she received a 1 hour albuterol nebulizer treatment in the emergency department and per report had improvement in her work of breathing as well as her wheezing. Based on the patient's severity of symptoms, she was admitted to the ICU for further monitoring and care. The patient has some dementia at baseline, however per report from her son she is more confused than normal. Source: patient, family, old records Exam Limitations: clinical condition Date seen by provider: Apr 09, 2017 Time Seen by Provider: 15:30 Attending Physician Smita Jimenez,[facility] Consult Dr. Padron, General Surgery Date of Admission Apr 09, 2017 at 13:00 Home Medications Home Medications Reviewed patient Home Medication Reconciliation Form Allergies Coded Allergies: levofloxacin (Verified Allergy, Severe, C-DIFF, 12/17/16) ceftriaxone (Verified Allergy, Unknown, 12/17/16) [id number]-[id number] Hx Patient Social History Marrital Status: domestic partnership Number of Children: 2 Living Status: lives with significant other Employed/Student: retired Alcohol Use: Past History (NONE FOR YEARS) Recreational Drug Use: No Smoking Status: Former Smoker Former smoker/When Quit: Feb 16, 2014 Type Used: Cigarettes 2nd Hand Smoke Exposure: No Recent Foreign Travel: No Contact w/other who traveled: No Recent Hopitalizations: No Recent Infectious Disease Expo: No Immunizations Up To Date Tetanus Booster (TDap): Unknown Date of Pneumonia Vaccine: Aug 05, 2013 Date of Influenza Vaccine: Apr 12, 2016 Past Medical History Past Medical History 1. ASOD - history of bilateral stents BLE Dr. Sevilla, redo stenting Dr. Engel Lt. SFA 02/23 2. Pancreatitis 2003 3. Hyperlipidemia 4. Chronic obstructive pulmonary disease 5. RA previously evaluated by Dr. Javier 6. History of skin cancer of the face 7. Dry Gangrene Lt. Foot s/p amputation 8. "Spider Bite" with wound Left shoulder with tissue 9 DJD 10. Insomnia 11. Stroke with dysarthria and right sided weakness 12. Mild Dementia 13. hypertension 14. Dependence on supplemental oxygen - 2L NC Past Surgical History 1. Hip Replacement 2003 2. BLE Stents RT. 2003, Lt. 2012 x3 by Di (on coumadin for short period post stent) stopped by Sevilla 3. Otolaryngologic surgery for CA bridge of nose and inner canthus of rt. eye 2009 4. Athrectomy with Lt. SFA stent Toro 02/23 5. Rt. SFA, popliteal and anterior tibial arthrectomy Toro 03/26 6. Left forefoot amputation-Reveal Family Medical History Significant Family History: Heart Disease Family History: Cancer 09 SISTER Family history: Arthritis 09 BROTHER 09 SISTER Family history: Cardiovascular disease 09 SISTER Family history: Thyroid disorder 09 SISTER Malignant neoplasm of lung 09 SISTER Review of Systems (CHC) Constitutional: see HPI, chills, fever, weakness EENTM: no symptoms reported, No ear pain, No eye pain, No epistaxis, No throat pain Respiratory: cough, phlegm, short of breath Cardiovascular: Hx of Intervention Gastrointestinal: abdominal pain (generalized), diarrhea, nausea, vomiting Genitourinary: decreased output : No Skin: hx of skin cancer Psychiatric/Neurological: No Symptoms Reported Reviewed Test Results Reviewed Test Results Lab Laboratory Tests Test 04/09/17 10:10 04/09/17 13:54 04/09/17 14:00 Range/Units White Blood Count 36.3 *H 4.3-11.0 10^3/uL Red Blood Count 4.68 4.35-5.85 10^6/uL Hemoglobin 13.8 11.5-16.0 G/DL Hematocrit 43 35-52 % Mean Corpuscular Volume 92 80-99 FL Mean Corpuscular Hemoglobin 30 25-34 PG Mean Corpuscular Hemoglobin Concent 32 32-36 G/DL Red Cell Distribution Width 14.9 H 10.0-14.5 % Platelet Count 344 130-400 10^3/uL Mean Platelet Volume 10.0 7.4-10.4 FL Neutrophils (%) (Auto) 85 H 42-75 % Lymphocytes (%) (Auto) 8 L 12-44 % Monocytes (%) (Auto) 7 0-12 % Eosinophils (%) (Auto) 0 0-10 % Basophils (%) (Auto) 0 0-10 % Neutrophils # (Auto) 30.8 H 1.8-7.8 X 10^3 Lymphocytes # (Auto) 3.0 1.0-4.0 X 10^3 Monocytes # (Auto) 2.5 H 0.0-1.0 X 10^3 Eosinophils # (Auto) 0.0 0.0-0.3 10^3/uL Basophils # (Auto) 0.1 0.0-0.1 10^3/uL Neutrophils % (Manual) 52 % Lymphocytes % (Manual) 3 % Monocytes % (Manual) 8 % Eosinophils % (Manual) 0 % Basophils % (Manual) 0 % Band Neutrophils 32 % Atypical Lymphocytes % Reactive Lymphocytes 5 % Poikilocytosis SLIGHT Stomatocytes SLIGHT Sodium Level 140 135-145 MMOL/L Potassium Level 4.2 3.6-5.0 MMOL/L Chloride Level 103 98-107 MMOL/L Carbon Dioxide Level 22 21-32 MMOL/L Anion Gap 15 H 5-14 MMOL/L Blood Urea Nitrogen 28 H 7-18 MG/DL Creatinine 1.08 0.60-1.30 MG/DL Estimat Glomerular Filtration Rate 51 BUN/Creatinine Ratio 26 Glucose Level 125 H 70-105 MG/DL Calcium Level 9.3 8.5-10.1 MG/DL Total Bilirubin 2.0 H 0.1-1.0 MG/DL Aspartate Amino Transf (AST/SGOT) 28 5-34 U/L Alanine Aminotransferase (ALT/SGPT) 26 0-55 U/L Alkaline Phosphatase 96 40-136 U/L Total Protein 8.3 H 6.4-8.2 GM/DL Albumin 3.8 3.2-4.5 GM/DL Amylase Level 35 25-125 U/L Lipase < 4 L 8-78 U/L Lactic Acid Level 1.97 0.50-2.00 MMOL/L Radiology CT Chest/Abd/Pelvis: CT chest: Patchy areas of consolidation mostly involving the right lung are concerning for pneumonia. CT abdomen and pelvis: Hepatic steatosis. No urinary tract stones or hydronephrosis. CXR: Right perihilar and basilar patchy infiltrates concerning for pneumonia. There is minimal background vascular congestion. left subclavian CVL placement per Dr. Padron Physical Exam-(CHC) Physical Exam Vital Signs VS - Last 72 Hours, by Label 04/09/17 04/09/17 04/09/17 04/09/17 12:05 12:10 12:25 12:36 Temp 101.3 101.3 Pulse 111 Resp 18 B/P (MAP) 115/60 Pulse Ox 90 93 95 O2 Delivery Nasal Cannula Nasal Cannula Nasal Cannula O2 Flow Rate 2.00 3.00 3.00 04/09/17 04/09/17 04/09/17 04/09/17 13:58 15:03 15:37 15:50 Temp 100.3 98.6 Pulse 112 111 111 Resp 16 23 B/P (MAP) 124/66 Pulse Ox 95 95 94 93 O2 Delivery Nasal Cannula Nasal Cannula Nasal Cannula O2 Flow Rate 4.00 4.00 2.00 FiO2 4 04/09/17 15:57 O2 Delivery Nasal Cannula O2 Flow Rate 4.00 Capillary Refill : Less Than 3 Seconds General Appearance: moderate distress, obese Eyes: Bilateral Eye Normal Inspection, Bilateral Eye EOMI HEENT: PERRL/EOMI, normal ENT inspection, pharynx normal, No scleral icterus (R ), No scleral icterus (L), pale conjunctivae (R), pale conjunctivae (L) Neck: non-tender, full range of motion, supple, normal inspection Respiratory: chest non-tender, respiratory distress (moderate worker breathing) , wheezing, other (coarse breath sounds on right) Cardiovascular: regular rate, rhythm, no murmur, tachycardia Peripheral Pulses: 2+ Radial Pulses (R), 2+ Radial Pulses (L) Gastrointestinal: normal bowel sounds, non tender, soft, no pulsatile mass, No guarding, No rebound, No tenderness, hepatomegaly Back: normal inspection, no CVA tenderness, no vertebral tenderness Extremities: non-tender, normal inspection, no calf tenderness, normal capillary refill, No calf tenderness Neurologic/Psychiatric: normal mood/affect, oriented x 3, motor weakness Skin: warm/dry, pallor Assessment/Plan Assessment/Plan Admission Dx severe sepsis Right lower and middle lobe pneumonia Leukocytosis Tachycardia Hypoxia requiring increased oxygen supplementation nausea, vomiting, diarrhea History of C. difficile Steatohepatitis COPD Hypertension Anxiety Plan Based on patient's severe sepsis as well as the need for frequent lab draws and anticipated need for pressors, Gen. surgery was consulted and CVL was placed in left subclavian by Dr. Padron. Fluid resuscitation per protocol Blood pressure support per protocol Clear liquid diet Antibiotics as outlined below Zofran when necessary nausea, fentanyl when necessary pain, Tylenol when necessary fever or mild pain Patient's daughter Ratna is DPOA and was present at bedside, plan of care was reviewed with her and all questions from both daughter and patient were answered CODE STATUS: Full Clinical condition: Serious Prognosis: Fair Based on the patient's severity of illness, including her severe sepsis secondary to right-sided pneumonia as well as her existing lung disease and dependence on oxygen, she requires ICU level of care and has an anticipated length of stay of 5-7 days for treatment of her pneumonia as well as management of her other comorbid conditions. Diagnosis/Problems: (1) Fever Qualifiers: Qualified Codes: R50.9 - Fever, unspecified (2) Abdominal pain Qualifiers: Qualified Codes: R10.84 - Generalized abdominal pain Assessment & Plan: -CT shows steatohepatitis -elevated bilirubin -hx of c-diff, reported diarrhea, will send sample for testing when available (3) Altered mental status Qualifiers: Assessment & Plan: -hx of stroke, but family reports more confused than normal (4) Leukocytosis Qualifiers: Qualified Codes: D72.829 - Elevated white blood cell count, unspecified Assessment & Plan: recheck CBC in a.m. (5) Diarrhea Qualifiers: Qualified Codes: R19.7 - Diarrhea, unspecified Assessment & Plan: -hx of c-diff, will send stool sample when available (6) Nausea & vomiting Qualifiers: Qualified Codes: R11.2 - Nausea with vomiting, unspecified Assessment & Plan: -clear liquids as tolerated -zofran PRN nausea (7) Cough (8) Sepsis Qualifiers: Qualified Codes: A41.9 - Sepsis, unspecified organism Assessment & Plan: -will send sputum sample if able to obtain -blood cultures pending -received 1 dose Zosyn and emergency department, will started on cefepime and azithromycin -UA shows no evidence of infection -IV steroids 4 doses -repeat labs in AM -fluid resuscitation with NS per protocol, levophed if needed per protocol (9) Pneumonia involving right lung Qualifiers: Qualified Codes: J18.9 - Pneumonia, unspecified organism Assessment & Plan: -right middle and lower lobe involvement -abx as above -will send sputum sample if able to obtain, however pt has already been started on abx so may not have any growth from sample -steroids, nebs PRN -flu test negative -BiPAP if needed to maintain sats or decreased work of breathing; start with 8 and titrate as needed for comfort SMITA JIMENEZ DO Apr 09, 2017 14:41
[2017-04-09 14:47] LABS: WBC,URINE 0-2 /HPF
[2017-04-09] MEDS ORDERED: NS IV 1000 ML 1,000 ML IV PRN (15:11)
[2017-04-09] MEDS ORDERED: PHARMACY TO DOSE IV SCH (15:15)
[2017-04-09] MEDS ORDERED: NS IV 1000 ML 2,500 ML IV PRN (15:15)
[2017-04-09] MEDS ORDERED: ACETAMINOPHEN 500 MG TAB (TYLENOL) PO PRN (15:30)
[2017-04-09] MEDS: ENOXAPARIN 40 MG/0.4 ML (LOVENOX) SYR SC SCH (16:28)
[2017-04-09] MEDS: AZITHROMYCIN INJECTION 500 MG in NS (IVPB) 250 ML IV SCH (16:28)
[2017-04-09] MEDS: NS IV 1000 ML 1,000 ML IV SCH ×2 (16:29→22:07)
--- NOTE | 2017-04-09 16:29 | Diagnostic Imaging Report ---
EXAMINATION: Portable supine upright radiograph of the chest. INDICATION: Central line placement. FINDINGS: Prominent right perihilar and basilar infiltrates are seen. The heart size is mildly enlarged. Mild vascular congestion is noted. No effusion or pneumothorax. A left subclavian central line is seen with the tip at the upper SVC level. IMPRESSION: Prominent right perihilar and basilar infiltrates. Cardiomegaly with minimal vascular congestion. Dictated by: Dictated on workstation # [id number]
[2017-04-09] MEDS ORDERED: ONDANSETRON 4 MG/2 ML (SDV) Z0FRAN IVP PRN (16:30)
[2017-04-09] MEDS ORDERED: fentaNYL INJECTION 100 MCG/2 ML AMP IVP PRN ×2 (16:30)
--- NOTE | 2017-04-09 16:31 | Progress Note-Post Operative ---
Post-Operative Progess Note Surgeon (s)/Illustrator Set (s) Surgeon HAO GRAHAM MD Illustrator Set: none Pre-Operative Diagnosis pneumonia, sepsis Post-Operative Diagnosis same Procedure & Operative Findings Date of Procedure 04/09/17 Procedure Performed/Findings left subclavian central venous catheter placement. Anesthesia Type local Estimated Blood Loss Estimated blood loss (mL): minimal Specimens/Packing Specimens Removed none HAO GRAHAM MD Apr 09, 2017 16:31
[2017-04-09] MEDS ORDERED: meTOprolol 5 MG/5 ML (LOPRESSOR) VIAL ONE (16:39)
[2017-04-09] MEDS ORDERED: meTOprolol 5 MG/5 ML (LOPRESSOR) VIAL IV NR (16:45)
[2017-04-09] MEDS: NOREPINEPHRINE 4 MG in D5W 250 ML (IVPB) 250 ML IV SCH ×2 (16:55→22:10)
[2017-04-09] MEDS ORDERED: RT-ALBUTEROL SULF 2.5 MG/3 ML PRE-MIX VIAL INH PRN (17:00)
[2017-04-09] MEDS ORDERED: DILTIAZEM 25 MG/5 ML INJ (CARDIZEM) VIAL IVP ONE (17:30)
--- NOTE | 2017-04-09 17:58 | CONSULTATION REPORT ---
DATE OF SERVICE: 04/09/2017 PRIMARY CARE PHYSICIAN: Dr. Garner. HISTORY OF PRESENT ILLNESS: The patient is a 66-year-old female with an extensive past medical history including COPD, peripheral vascular disease, as well as recurrent episodes of pneumonia requiring admission. She reports that this is her fourth or fifth episode of being admitted for pneumonia. She does also have a history of COPD and is a previous smoker that quit in 2013. She also has significant peripheral vascular disease including a stroke with right-sided weakness in the past. She developed weakness, shortness of breath as well as a productive cough and was evaluated and found to have an elevated white count at 36, meeting criteria for severe sepsis. She will require IV antibiotics as well as frequent blood draws and will require potential IV pressors and will need a central venous catheter. PAST MEDICAL HISTORY: COPD, degenerative joint disease, peripheral vascular disease, history of pancreatitis, history of stroke, hypertension, hypercholesterolemia. PAST SURGICAL HISTORY: Bilateral lower extremity angioplasty and stent placement, left foot amputation, hip arthroplasty 2003. ALLERGIES: LEVOFLOXACIN, CEFTRIAXONE. MEDICATIONS: Albuterol 2.5 mg q.6h. p.r.n. Alprazolam 0.5 mg at bedtime, aspirin 81 mg daily, budesonide 2 puffs b.i.d., Cefdinir 300 mg b.i.d., cetirizine 10 mg daily, diclofenac 100 mg b.i.d., Diamox and 25 mg daily, Nexium 40 mg daily, etanercept 50 mg once a week, gabapentin 600 mg daily, montelukast 10 mg daily, pravastatin 10 mg daily, prednisone tapering Dosepak, ranitidine 150 mg b.i.d., sertraline 50 mg daily, verapamil 120 mg daily, Spiriva daily. SOCIAL HISTORY: Previous smoker, quit in 2013, 40 pack years. Negative alcohol. FAMILY HISTORY: Noncontributory. VITAL SIGNS: Temperature 98.6, blood pressure 115/60, pulse 111, respirations 18, pulse ox 93% on 4 liters nasal cannula. REVIEW OF SYSTEMS: Well-nourished female currently mildly guarded secondary to shortness of breath. She is also experiencing a cough with mild sputum production. No chest pain, palpitations, diaphoresis. No nausea, vomiting. Has had intermittent episodes of diarrhea. No known red blood per rectum nor any dark tarry stools. Has been having some fevers in the past 24 hours. No recent inadvertent weight loss. All other review of systems negative. PHYSICAL EXAMINATION: CHEST: A few scattered rales and distant breath sounds bilaterally. HEART: Regular, no murmurs. HEENT: No scleral icterus. NECK: No cervical lymphadenopathy. EXTREMITIES: No lower extremity edema, negative Homans sign. ABDOMEN: Soft, nontender, nondistended. SKIN: Warm and dry. ASSESSMENT AND PLAN: A 66-year-old female with pneumonia and meets criteria for severe sepsis. She will require IV fluids, IV antibiotics as well as frequent blood draws and potential pressors in the future and we will proceed with placement of a central venous catheter. Job ID: [id number] DocumentID: [id number] Dictated Date: 04/09/2017 16:27:21 Button Decorating Machine Operator Date: 04/09/2017 17:57:44 Dictated By: HAO GRAHAM MD MTDD
[2017-04-09] MEDS: ALPRAZolam 0.5 MG (XANAX) TAB PO SCH (18:27)
[2017-04-09] MEDS: methylPREDNISolone 125 MG (Solu-MEDROL) VIAL IVP SCH (18:28)
[2017-04-09] MEDS: RT-ALBUTEROL/IPRATROPIUM 3 ML (DUONEB) VIAL INH SCH ×2 (18:57→21:26)
[2017-04-09] MEDS ORDERED: AMIODARONE 150 MG/3 ML (CORDARONE) AMP IV ONE (20:36)
[2017-04-09] MEDS ORDERED: NS (IVPB) 50 ML ONE (20:38)
[2017-04-09] MEDS: inSUlin (REGULAR) HUMAN 1 UNIT/0.01 ML (CHARGE PER UNIT) SC SCH (20:54)
[2017-04-09] MEDS: ASPIRIN E.C. 81 MG (ECOTRIN) TAB PO SCH (20:54)
[2017-04-09] MEDS: LACTOBACILLUS Acidoph/Bulgar (LACTINEX/FLORANEX) TAB PO SCH (20:54)
[2017-04-09] MEDS: DOXEPIN 25 MG (SINEquan) CAP PO SCH (20:55)
[2017-04-09] MEDS: GABAPENTIN 600 MG (NEURONTIN) TAB PO SCH (20:55)
[2017-04-09] MEDS: FAMOTIDINE 20 MG (PEPCID) TABLET PO SCH (20:55)
[2017-04-09] MEDS: CEFEPIME INJECTION 2,000 MG in NS (IVPB) 50 ML IV SCH (20:59)
[2017-04-09] MEDS ORDERED: MULTIVITAMIN PO SCH (21:00)
[2017-04-09] MEDS ORDERED: NON-FORMULARY MEDICATION 1 EA EA (L.acidoph & Paracasei,B.lactis (Probiotic) 1 CAP) PO SCH (21:00)
[2017-04-09] MEDS ORDERED: raNItidine (ZANTAC) 150 MG TAB NON-FORMULARY PO SCH (21:00)
[2017-04-09] MEDS ORDERED: AMIODARONE FOR BOLUS 150 MG in D5W 100 ML IVPB 100 ML IV ONE (21:15)
[2017-04-09] MEDS: DICLOFENAC 1% GEL 100 GM (VOLTAREN) TUBE TP SCH (21:53)
[2017-04-09] MEDS ORDERED: meTOprolol 5 MG/5 ML (LOPRESSOR) VIAL IV ONE (22:00)
[2017-04-10] VITALS (24 sets, daily range): BP systolic 91–134; BP diastolic 36–94
[2017-04-10] MEDS: methylPREDNISolone 125 MG (Solu-MEDROL) VIAL IVP SCH ×2 (00:19→06:09)
[2017-04-10] MEDS: NS IV 1000 ML 1,000 ML IV SCH ×5 (00:24→15:43)
[2017-04-10] MEDS ORDERED: AMIODARONE FOR BOLUS 150 MG in D5W 100 ML IVPB 100 ML IV ONE (00:30)
[2017-04-10] MEDS: RT-ALBUTEROL/IPRATROPIUM 3 ML (DUONEB) VIAL INH SCH ×6 (02:00→22:10)
--- NOTE | 2017-04-10 04:44 | OPERATIVE REPORT ---
DATE OF SERVICE: 04/09/2017 ATTENDING PHYSICIAN: Dr. Smita Garner. PRE-PROCEDURE DIAGNOSES: Pneumonia and sepsis. POST-PROCEDURE DIAGNOSES: Pneumonia and sepsis. PROCEDURE: Placement of left subclavian central venous catheter. SURGEON: Dr. Graham. ANESTHESIA: Local. ESTIMATED BLOOD LOSS: Minimal. FINDINGS: Catheter tip at superior vena cava - right atrial junction. DISPOSITION: The patient tolerated the procedure well. INDICATIONS: The patient is a 66-year-old female who was admitted for fever, shortness of breath, cough, weakness, was found to have a pneumonia as well as severe leukocytosis and also several meeting criteria for severe sepsis. She has had these episodes before requiring admission. She also has a history of peripheral vascular disease as well as a history of cerebrovascular accident. DESCRIPTION OF PROCEDURE: The left chest and neck were prepped and draped in a standard surgical fashion. A 1% lidocaine was used to anesthetize the overlying skin in the left subclavian region. The left subclavian vein was then cannulated with drawing of venous blood. A guidewire was then inserted without any resistance. The cannulating needle removed and a small skin incision made using 11 blade. A tract was then created using a venous dilator. A triple lumen central venous catheter was then placed over the guidewire using a Selinger technique. The guidewire was removed and all 3 ports evangelina venous blood and flushed pristine without any resistance. The catheter was then sutured to the skin using interrupted 3-0 silk sutures. Catheter was then cleaned and covered with sterile gauze followed by Op-Site. The patient tolerated the procedure well. We will get a post-procedure chest x-ray and once confirming, the catheter may be accessed and used at any time. Job ID: [id number] DocumentID: [id number] Dictated Date: 04/09/2017 16:30:27 Desilverizer Date: 04/10/2017 04:43:53 Dictated By: HAO GRAHAM MD
[2017-04-10 04:55] LABS: BASOPHILS % (AUTO) 0 % (0-10); EOSINOPHILS % (AUTO) 0 % (0-10); LYMPHOCYTES # (AUTO) 2.3 X 10^3 (1.0-4.0); LYMPHOCYTES % (AUTO) 6 % (12-44); MEAN CORPUSCULAR HEMOGLOBIN 30 PG (25-34); MEAN CORPUSCULAR HGB CONC 32 G/DL (32-36); MEAN CORPUSCULAR VOLUME 93 FL (80-99); MEAN PLATELET VOLUME 9.9 FL (7.4-10.4); MONOCYTES # (AUTO) 1.4 X 10^3 (0.0-1.0); MONOCYTES % (AUTO) 4 % (0-12); NEUTROPHILS # (AUTO) 34.8 X 10^3 (1.8-7.8); NEUTROPHILS % (AUTO) 90 % (42-75); PLATELET COUNT 284 10^3/uL (130-400); RED BLOOD COUNT 3.72 10^6/uL (4.35-5.85); RED CELL DISTRIBUTION WIDTH 15.2 % (10.0-14.5)
[2017-04-10 04:58] LABS: WHITE BLOOD COUNT 38.5 10^3/uL (4.3-11.0)
[2017-04-10 05:05] LABS: INR 1.3 (0.8-1.4); PROTHROMBIN TIME PATIENT 15.9 SEC (12.2-14.7)
[2017-04-10 05:10] LABS: ANION GAP 7 MMOL/L (5-14); BLOOD UREA NITROGEN 17 MG/DL (7-18); BUN/CREATININE RATIO 24; CALCIUM 8.4 MG/DL (8.5-10.1); CARBON DIOXIDE 23 MMOL/L (21-32); CHLORIDE 115 MMOL/L (98-107); GFR ESTIMATED > 60; GLUCOSE 165 MG/DL (70-105); MAGNESIUM 1.4 MG/DL (1.8-2.4); PHOSPHORUS 1.7 MG/DL (2.3-4.7); POTASSIUM 3.7 MMOL/L (3.6-5.0); SODIUM 145 MMOL/L (135-145)
[2017-04-10] MEDS: NOREPINEPHRINE 4 MG in D5W 250 ML (IVPB) 250 ML IV SCH ×2 (05:17→11:29)
[2017-04-10] MEDS: MAGNESIUM 1 GM/100 ML IVPB 100 ML IV SCH ×3 (05:24→06:46)
--- NOTE | 2017-04-10 06:17 | Pulmonary Consultation ---
History of Present Illness History of Present Illness Date of Consultation 04/10/17 06:12 Time Seen by Provider: 06:12 Date of Admission History of Present Illness 66yo with hx of oxygen dependent COPD and dementia presented to ED secondary to worsening fever, chills, nausea, vomiting, and diarrhea. Onset was evening prior to admission. Upon ED admission pt was found to have severe sepsis and was admitted to ICU. CXR shows bilateral pneumonia. PT was requiring 3-4 liters of oxygen secondary to hypoxia. I am consulted for pulmonary/CC management. Allergies and Home Medications Allergies Coded Allergies: levofloxacin (Verified Allergy, Severe, C-DIFF, 12/17/16) ceftriaxone (Verified Allergy, Unknown, 12/17/16) Home Medications Albuterol Sulfate 2.5 Mg/3 Ml Vial.neb, 2.5 MG NEB Q6H PRN for SHORTNESS OF BREATH, (Reported) Alprazolam 0.5 Mg Tablet, 0.5 MG PO HS, (Reported) Ascorbate Calcium 500 Mg Tablet, 1,000 MG PO DAILY, (Reported) Aspirin 81 Mg Tablet.dr, 81 MG PO HS, (Reported) Budesonide/Formoterol Fumarate 10.2 Gm Hfa.aer.ad, 2 PUFF PO BID, (Reported) Cetirizine HCl 10 Mg Tablet, 10 MG PO DAILY, (Reported) Cholecalciferol (Vitamin D3) 1,000 Unit Tablet, 1,000 UNIT PO DAILY, (Reported) Diclofenac Sodium 100 Gm Gel..gram., TP BID, (Reported) Doxepin HCl 25 Mg Capsule, 25 MG PO HS, (Reported) Esomeprazole Magnesium 40 Mg Cap, 40 MG PO DAILY, (Reported) Etanercept 50 Mg/1 Ml Syringe, 50 MG INJ Tu, (Reported) Gabapentin 600 Mg Tablet, 600 MG PO TID, (Reported) L.acidoph & Paracasei,B.lactis 1 Each Capsule, 1 CAP PO BID, (Reported) Montelukast Sodium 10 Mg Tablet, 10 MG PO DAILY, (Reported) Multivitamin 1 Each Tab.chew, 1 TAB.CHEW PO BID, (Reported) Pravastatin Sodium 10 Mg Tablet, 10 MG PO HS, (Reported) Ranitidine HCl 150 Mg Tablet, 150 MG PO BID, (Reported) Sertraline HCl 50 Mg Tablet, 50 MG PO DAILY, (Reported) Tiotropium [place] 4 Gm Mist.inhal, 2.5 MCG PO DAILY, (Reported) Verapamil HCl 120 Mg Tablet.er, 120 MG PO DAILY, (Reported) Past Lriaegj-Jtuvrz-Yofleg Hx Patient Social History Alcohol Use: Past History Recreational Drug Use: No Smoking Status: Former Smoker Type Used: Cigarettes Former Smoker, Quit: Dec 11, 2014 2nd Hand Smoke Exposure: No Recent Foreign Travel: No Contact w/Someone Who Travel: No Recent Infectious Disease Expo: No Recent Hopitalizations: No Physical Abuse: No Sexual Abuse: No Immunizations Up To Date Tetanus Booster (TDap): Unknown PED Vaccines UTD: Yes Date of Pneumonia Vaccine: Aug 05, 2013 Date of Influenza Vaccine: Apr 12, 2016 Seasonal Allergies Seasonal Allergies: Yes Surgeries History of Surgeries: Yes Surgeries: Joint Replacement, Orthopedic, Vascular Surgery Respiratory History of Respiratory Disorde: Yes (O2 2L NC AT NIGHT AND PRN) Respiratory Disorders: Pneumonia, Chronic Bronchitis, COPD, Emphysema Currently Using CPAP: No Currently Using BIPAP: No Cardiovascular History of Cardiac Disorders: Yes (CAROTID DISEASE--COMPLETE OCCLUSION OF LEFT CAROTID) Cardiac Disorders: High Cholesterol, Hypertension, Peripheral Vascular Neurological History of Neurological Disord: Yes (DYSPHAGIA, DYSARTHRIA; RIGHT SIDE WEAKNESS --POST CVA) Neurological Disorders: Dementia, Stroke Reproductive System Hx Reproductive Disorders: No Sexually Transmitted Disease: No HIV/AIDS: No Female Reproductive Disorders: Denies REHABILITATION ASSISTANT History: Menopausal Genitourinary History of Genitourinary Disor: No Gastrointestinal History of Gastrointestinal Di: Yes Gastrointestinal Disorders: Gastroesophageal Reflux, Pancreatitis, Polyps, C- Diff Musculoskeletal History of Musculoskeletal Dis: Yes (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 ) Musculoskeletal Disorders: Arthritis, Rheumatoid Arthritis Endocrine History of Endocrine Disorders: No HEENT History of HEENT Disorders: Yes (GLASSES) HEENT Disorders: Dysphagia, Tinnitis Loss of Vision: Bilateral Hearing Impairment: Denies Cancer History of Cancer: No Psychosocial History of Psychiatric Problem: Yes Behavioral Health Disorders: Sleep Difficulties, Anxiety, Depression Suicide Risk Score: 0 Integumentary History of Skin or Integumenta: No Blood Transfusions History of Blood Disorders: No Adverse Reaction to a Blood Tr: No Family Medical History Significant Family History: Heart Disease Family Medial History: Cancer 09 SISTER Family history: Arthritis 09 BROTHER 09 SISTER Family history: Cardiovascular disease 09 SISTER Family history: Thyroid disorder 09 SISTER Malignant neoplasm of lung 09 SISTER Review of Systems Time Seen by Provider: 06:18 Constitutional: Fever, Chills, Sweats, Weakness, Malaise Eyes: No: Pain, Vision change, Conjunctivae inflammation, Eyelid inflammation, Other, Redness ENT: No: Ear pain, Ear discharge, Nose pain, Nose discharge, Nose congestion, Mouth pain, Mouth swelling, Throat pain, Throat swelling, Other Respiratory: Cough, Shortness of breath, SOB with excertion Gastrointestinal: Nausea, Vomiting, Abdominal Pain Neurological: Weakness, Incoordination, Confusion Exam Exam Vital Signs Date Time Temp Pulse Resp B/P (MAP) Pulse Ox O2 Delivery O2 Flow Rate FiO2 04/10/17 06:00 113 12 109/69 92 Nasal Cannula 4.00 04/10/17 05:00 122 19 115/70 94 Nasal Cannula 4.00 04/10/17 04:00 96.8 04/10/17 04:00 122 18 100/71 94 Nasal Cannula 4.00 04/10/17 04:00 96 Nasal Cannula 4.00 04/10/17 03:00 123 18 91/55 96 Nasal Cannula 4.00 04/10/17 02:00 114 20 104/72 97 Nasal Cannula 4.00 04/10/17 02:00 96 Nasal Cannula 4.00 04/10/17 01:00 113 04/10/17 01:00 113 17 111/73 95 Nasal Cannula 4.00 04/10/17 00:30 113 22 123/83 96 Nasal Cannula 4.00 04/10/17 00:00 97.9 04/10/17 00:00 96 Nasal Cannula 4.00 04/10/17 00:00 111 25 100/62 95 Nasal Cannula 4.00 04/09/17 23:45 113 19 117/77 92 Nasal Cannula 4.00 04/09/17 23:30 113 17 122/74 94 Nasal Cannula 4.00 04/09/17 23:15 113 18 91/62 94 Nasal Cannula 4.00 04/09/17 23:00 113 16 70/80 93 Nasal Cannula 4.00 04/09/17 22:45 113 18 110/80 94 Nasal Cannula 4.00 04/09/17 22:30 113 17 109/71 93 Nasal Cannula 4.00 04/09/17 22:15 112 19 110/76 93 Nasal Cannula 4.00 04/09/17 22:00 108 20 109/70 94 Nasal Cannula 4.00 04/09/17 21:45 125 20 113/97 93 Nasal Cannula 4.00 04/09/17 21:30 118 17 132/85 96 Nasal Cannula 4.00 04/09/17 21:26 92 Nasal Cannula 4.00 04/09/17 21:15 117 20 123/76 90 Nasal Cannula 4.00 04/09/17 21:00 133 14 128/75 92 Nasal Cannula 4.00 04/09/17 20:45 140 17 124/78 92 Nasal Cannula 4.00 04/09/17 20:30 141 17 131/75 92 Nasal Cannula 4.00 04/09/17 20:15 142 18 129/76 92 Nasal Cannula 4.00 04/09/17 20:00 96 Nasal Cannula 4.00 04/09/17 20:00 97.4 142 19 122/77 92 Nasal Cannula 4.00 04/09/17 19:45 142 18 135/80 92 Nasal Cannula 4.00 04/09/17 19:30 146 18 140/87 93 Nasal Cannula 4.00 04/09/17 19:15 146 18 137/81 93 Nasal Cannula 4.00 04/09/17 19:00 140 04/09/17 19:00 140 20 121/84 93 Nasal Cannula 4.00 04/09/17 18:57 94 Nasal Cannula 4.00 04/09/17 18:45 142 30 145/86 94 Nasal Cannula 4.00 04/09/17 18:30 141 17 146/89 95 Nasal Cannula 4.00 04/09/17 18:15 135 21 112/71 95 Nasal Cannula 4.00 04/09/17 18:00 124 37 96/64 93 Nasal Cannula 4.00 04/09/17 17:45 135 16 127/77 93 Nasal Cannula 4.00 04/09/17 17:30 144 26 136/86 95 Nasal Cannula 4.00 04/09/17 17:15 144 14 138/92 94 Nasal Cannula 4.00 04/09/17 17:00 123 22 91/64 94 Nasal Cannula 4.00 04/09/17 16:45 146 18 93/67 91 Nasal Cannula 4.00 04/09/17 16:30 149 19 116/72 92 Nasal Cannula 4.00 04/09/17 16:15 151 21 86/64 91 Nasal Cannula 4.00 04/09/17 16:00 96 Nasal Cannula 4.00 04/09/17 16:00 110 21 118/73 92 Nasal Cannula 4.00 04/09/17 15:57 Nasal Cannula 4.00 04/09/17 15:50 111 93 4 04/09/17 15:45 109 15 108/71 93 Nasal Cannula 4.00 04/09/17 15:37 98.6 111 23 124/66 94 Nasal Cannula 2.00 04/09/17 15:30 111 04/09/17 15:25 111 22 88/36 93 Nasal Cannula 4.00 04/09/17 15:25 94 Nasal Cannula 4.00 04/09/17 15:03 100.3 112 16 95 Nasal Cannula 4.00 04/09/17 13:58 95 Nasal Cannula 4.00 04/09/17 12:36 101.3 04/09/17 12:25 95 Nasal Cannula 3.00 04/09/17 12:10 93 Nasal Cannula 3.00 04/09/17 12:05 101.3 111 18 115/60 90 Nasal Cannula 2.00 General Appearance: WD/WN, Obese HEENT: PERRL/EOMI, Other (ORAL MUCOSA MOIST) Neck: Full Range of Motion, Normal Inspection, Non Tender, Supple Respiratory: Crackles, Rhonci Cardiovascular: No JVD, No Murmur, Tachycardia Capillary Refill: Less Than 3 Seconds Peripheral Pulses: 2+ Radial Pulses (R), 2+ Radial Pulses (L) Gastrointestinal: normal bowel sounds, non tender, soft, no pulsatile mass, No guarding, No rebound, No tenderness, hepatomegaly Extremity: Normal Capillary Refill, Normal Range of Motion, Non Tender, No Calf Tenderness, No Pedal Edema, Other (LEFT FOOT PARTIAL AMPUTATION) Neurologic/Psychiatric: Alert, Motor Weakness (MILD RIGHT SIDED WEAKNESS-- NORMAL POST CVA), Other (SOME EXPRESSIVE APHASIA/DYSARTHRIA, CONFUSED TO PLACE, TIME, SITUATION) Skin: Normal Color, Warm/Dry, Pallor Lymphatic: No Adenopathy Results Lab Laboratory Tests 04/09/17 10:10 04/10/17 04:50 Assessment/Plan Assessment/Plan Severe sepsis with right sided pneumonia Sepsis protocol -IVF pt received 3liters of IVF -Currently on cefepime and azithromycin -await cultures Sinus tach - resolved -PT received IV Amio and Lopressor during the night -Will continue Lopressor 12.5mg PO BID -IVF Hypotension - resolved with IVF -Levophed is off COPDAE 3 liters of home oxygen -SVNs -Oxygen Obesity Pt is doing much better if she is still doing well later today after d/cing johnson and getting up to the chair she can transfer to 4th floor with tele. 255 Diagnosis/Problems Problems/Diagonsis (1) Fever Status: Acute Qualifiers: Qualified Codes: R50.9 - Fever, unspecified (2) Abdominal pain Status: Acute Assessment & Plan: -CT shows steatohepatitis -elevated bilirubin -hx of c-diff, reported diarrhea, will send sample for testing when available Qualifiers: Qualified Codes: R10.84 - Generalized abdominal pain (3) Altered mental status Status: Acute Assessment & Plan: -hx of stroke, but family reports more confused than normal Qualifiers: (4) Leukocytosis Status: Acute Assessment & Plan: recheck CBC in a.m. Qualifiers: Qualified Codes: D72.829 - Elevated white blood cell count, unspecified (5) Diarrhea Status: Acute Assessment & Plan: -hx of c-diff, will send stool sample when available Qualifiers: Qualified Codes: R19.7 - Diarrhea, unspecified (6) Nausea & vomiting Status: Acute Assessment & Plan: -clear liquids as tolerated -zofran PRN nausea Qualifiers: Qualified Codes: R11.2 - Nausea with vomiting, unspecified (7) Cough Status: Acute (8) Sepsis Status: Acute Assessment & Plan: -will send sputum sample if able to obtain -blood cultures pending -received 1 dose Zosyn and emergency department, will started on cefepime and azithromycin -UA shows no evidence of infection -IV steroids 4 doses -repeat labs in AM -fluid resuscitation with NS per protocol, levophed if needed per protocol Qualifiers: Qualified Codes: A41.9 - Sepsis, unspecified organism (9) Pneumonia involving right lung Status: Acute Assessment & Plan: -right middle and lower lobe involvement -abx as above -will send sputum sample if able to obtain, however pt has already been started on abx so may not have any growth from sample -steroids, nebs PRN -flu test negative -BiPAP if needed to maintain sats or decreased work of breathing; start with 12/ 8 and titrate as needed for comfort Qualifiers: Qualified Codes: J18.9 - Pneumonia, unspecified organism Clinical Quality Measures DVT/VTE Risk/Contraindication: Risk Factor Score Per Nursin RFS Level Per Nursing on Admit: 4+=Very High LULÚ MCKEON DO Apr 10, 2017 06:17
[2017-04-10] MEDS ORDERED: SODIUM PHOSPHATE INJ 30 MM in NS (IVPB) 250 ML IV ONE (06:30)
[2017-04-10] MEDS: POTASSIUM CL 10MEQ/50ML IVPB 50 ML IV SCH (06:46)
[2017-04-10] MEDS: KCL 20 MEQ TAB (K-DUR) PO SCH (06:46)
[2017-04-10] MEDS: inSUlin (REGULAR) HUMAN 1 UNIT/0.01 ML (CHARGE PER UNIT) SC SCH ×4 (06:46→20:02)
[2017-04-10] MEDS ORDERED: INFLUENZA TRIvalent 2017-2018 0.5 ML/45 MCG SYR IM ONE (07:00)
[2017-04-10] MEDS: UMECLIDINIUM BROMIDE (INCRUSE ELLIPTA) 7'S IH SCH (07:19)
[2017-04-10] MEDS: ASCORBIC ACID (VIT C) 500 MG TABLET PO SCH (07:49)
[2017-04-10] MEDS: SERTRALINE 50 MG (ZOLOFT) TABLET PO SCH (07:49)
[2017-04-10] MEDS: GABAPENTIN 600 MG (NEURONTIN) TAB PO SCH ×3 (07:49→19:59)
[2017-04-10] MEDS: LORATADINE (CLARITIN) 10 MG TAB PO SCH (07:49)
[2017-04-10] MEDS: MULTIVIT W/MINERALS TAB (THERAGRAN M) PO SCH (07:49)
[2017-04-10] MEDS: PANTOPRAZOLE 40 MG (PROTONIX) TAB PO SCH (07:49)
[2017-04-10] MEDS: DICLOFENAC 1% GEL 100 GM (VOLTAREN) TUBE TP SCH ×2 (07:50→19:56)
[2017-04-10] MEDS: VITAMIN D3 1,000 UNITS (CHOLECALCIFEROL) TABLET PO SCH (07:50)
[2017-04-10] MEDS: FAMOTIDINE 20 MG (PEPCID) TABLET PO SCH ×2 (07:50→19:57)
[2017-04-10] MEDS: LACTOBACILLUS Acidoph/Bulgar (LACTINEX/FLORANEX) TAB PO SCH ×2 (07:50→19:57)
[2017-04-10] MEDS: MONTELUKAST 10 MG (SINGULAIR) TAB PO SCH (07:50)
[2017-04-10] MEDS: meTOprolol TARTRATE 25 MG (LOPRESSOR) TABLET PO SCH ×2 (07:50→19:57)
--- NOTE | 2017-04-10 08:11 | Diagnostic Imaging Report ---
Portable upright radiograph of the chest. INDICATION: Sepsis. COMPARISON: 04/09/17. FINDINGS: Patchy infiltrates in right perihilar and basilar regions appear slightly improved compared to the prior exam. There is cardiomegaly with improved vascular congestion. No significant effusion. No pneumothorax. Left subclavian line is again seen with tip at SVC level. IMPRESSION: Slightly improved patchy right lung infiltrates. Dictated by: Dictated on workstation # [id number]
[2017-04-10] MEDS ORDERED: NON-FORMULARY MEDICATION 1 EA EA (Cetirizine HCl 10 MG) PO SCH (09:00)
[2017-04-10] MEDS ORDERED: NON-FORMULARY MEDICATION 1 EA EA (Tiotropium Bromide (Spiriva Respimat 2.5MCG/ACTUATION) 2 PO SCH (09:00)
[2017-04-10] MEDS ORDERED: NON-FORMULARY MEDICATION 1 EA EA (Esomeprazole Magnesium (Nexium) 40 MG) PO SCH (09:00)
[2017-04-10] MEDS ORDERED: ASCORBATE CALCIUM 1000 MG PO SCH (09:00)
[2017-04-10] MEDS: VERAPAMIL PM 100 MG (VERELAN PM) CAP.SR.24H PO SCH (10:10)
--- NOTE | 2017-04-10 11:14 | Progress Note (SOAP) ---
Subjective Subjective/Events-last exam This morning the patient appears significantly improved ufrom her condition on arrival. The patient reports that she is feeling much better, and that she is not having any abdominal pain, other than where her lovenox was administered. She does report that she still feels quite short of breath, and she is requiring 4L NC to maintain her sats. When seen, the patient is sitting up in the chair, and the nurse reports that she was extremely short of breath with the minimal movement of transferring to the chair. The patient has been able to wean off her levophed and is maintaining her blood pressure. She is tachycardic with a HR of 127 at this time, she was given a dose of medication earlier by Dr. Samuels for her tachycardia. The patient does have Verapamil 100 mg as a home medication, which she did not take yesterday. Review of Systems Date Seen by Provider: Apr 10, 2017 Time Seen by Provider: 08:50 General: No Chills, No Fatigue, No Appetite HEENT: No Head Aches, No Visual Changes, No Eye Pain, No Ear Pain, No Dysphasia Pulmonary: Dyspnea, Cough Cardiovascular: No: Chest Pain, Palpitations, Edema, Lt Headedness Gastrointestinal: No: Nausea, Vomiting, Diarrhea, Constipation Genitourinary: No Hematuria, No Retention Musculoskeletal: No: neck pain Neurological: No: Change in speech, Confusion, Seizures Objective Exam Last Set of Vital Signs Vital Signs Date Time Temp Pulse Resp B/P (MAP) Pulse Ox O2 Delivery O2 Flow Rate FiO2 04/10/17 10:54 96 Nasal Cannula 4.00 04/10/17 10:00 121 24 111/74 04/10/17 08:00 98.5 04/09/17 15:50 4 Capillary Refill : Less Than 3 Seconds I&O Intake and Output 04/11/17 00:00 Intake Total 1300 ml Output Total 1025 ml Balance 275 ml Intake Oral 100 ml IV Total 1200 ml Output Urine Total 1025 ml General: Alert, Oriented X3, Cooperative, Mild Distress HEENT: Atraumatic, PERRLA, EOMI, Mucous Memb Moist/[place] Neck: Supple, No Thyromegaly Lungs: Other (diffuse wheezeing) Heart: Regular Rate, Normal S1, Normal S2, No Murmurs Abdomen: Normal Bowel Sounds, Soft, No Tenderness, No Hepatosplenomegaly, No Masses Extremities: No Clubbing, No Cyanosis, No Tenderness/Swelling, Other (partial left foot amputation) Skin: No Rashes, No Significant Lesion Neuro: Normal Speech, Normal Tone Psych/Mental Status: Mental Status NL, Mood NL Results/Procedures Lab Laboratory Tests 04/09/17 13:54: Urine Color AMBERH, Urine Clarity SLIGHTLY CLOUDY, Urine pH 5, Urine Specific [place] 1.015L, Urine Protein 1+H, Urine Glucose (UA) NEGATIVE, Urine Ketones NEGATIVE, Urine Nitrite NEGATIVE, Urine Bilirubin 1+H, Urine Urobilinogen 1, Urine Leukocyte Esterase 1+H, Urine RBC (Auto) NEGATIVE, Urine RBC NONE, Urine WBC 0-2, Urine Squamous Epithelial Cells 10-25H, Urine Renal Epithelial Cells NONE, Urine Crystals NONE, Urine Bacteria FEWH, Urine Casts PRESENT, Urine Hyaline Casts 10-25H, Urine Mucus LARGEH, Urine Culture Indicated NO 04/09/17 14:00: Lactic Acid Level 1.97 04/09/17 18:24: Glucometer 211H 04/09/17 20:52: Glucometer 217H 04/10/17 04:50: White Blood Count 38.5*H, Red Blood Count 3.72L, Hemoglobin 11.1L, Hematocrit 35 , Mean Corpuscular Volume 93, Mean Corpuscular Hemoglobin 30, Mean Corpuscular Hemoglobin Concent 32, Red Cell Distribution Width 15.2H, Platelet Count 284, Mean Platelet Volume 9.9, Neutrophils (%) (Auto) 90H, Lymphocytes (%) (Auto) 6L , Monocytes (%) (Auto) 4, Eosinophils (%) (Auto) 0, Basophils (%) (Auto) 0, Neutrophils # (Auto) 34.8H, Lymphocytes # (Auto) 2.3, Monocytes # (Auto) 1.4H, Eosinophils # (Auto) 0.0, Basophils # (Auto) 0.0, Prothrombin Time 15.9H, INR Comment 1.3, Activated Partial Thromboplast Time 34, Sodium Level 145, Potassium Level 3.7, Chloride Level 115#H, Carbon Dioxide Level 23, Anion Gap 7 , Blood Urea Nitrogen 17, Creatinine 0.70, Estimat Glomerular Filtration Rate > 60, BUN/Creatinine Ratio 24, Glucose Level 165H, Calcium Level 8.4L, Phosphorus Level 1.7L, Magnesium Level 1.4L Microbiology 04/09/17 Influenza Types A,B Antigen (PRITI) - Final, Complete Radiology CT Chest/Abd/Pelvis: CT chest: Patchy areas of consolidation mostly involving the right lung are concerning for pneumonia. CT abdomen and pelvis: Hepatic steatosis. No urinary tract stones or hydronephrosis. CXR: Right perihilar and basilar patchy infiltrates concerning for pneumonia. There is minimal background vascular congestion. Procedures left subclavian CVL placement per Dr. Padron Assessment/Plan Assessment/Plan Admission Dx severe sepsis Right lower and middle lobe pneumonia Leukocytosis Tachycardia Hypoxia requiring increased oxygen supplementation nausea, vomiting, diarrhea History of C. difficile Steatohepatitis COPD Hypertension Anxiety Plan Continue antibiotics - Cefepime and Azithriomycin, now on Day #2 -PT to see pt to work with her for strength building -continue supplemental oxygen as needed; continue to consider bipap intermittently if pt will tolerate; Dr. Samuels has been consulted and seen the patient this morning, and we will defer to his recommendations and appreciate his input and assistance -will restart pt's verapamil to see if we can obtain improved heart rate control Patient's daughter Ratna is DPOA CODE STATUS: Full Clinical condition: Fair Prognosis: Fair Based on the patient's severity of illness, including her severe sepsis secondary to right-sided pneumonia as well as her existing lung disease and dependence on oxygen, she requires ICU level of care and has an anticipated length of stay of 5-7 days for treatment of her pneumonia as well as management of her other comorbid conditions. Diagnosis/Problems: (1) Fever Qualifiers: Qualified Codes: R50.9 - Fever, unspecified (2) Abdominal pain Qualifiers: Qualified Codes: R10.84 - Generalized abdominal pain Assessment & Plan: -CT shows steatohepatitis -elevated bilirubin -hx of c-diff, reported diarrhea, will send sample for testing when available (3) Altered mental status Qualifiers: Assessment & Plan: -hx of stroke, but family reports more confused than normal on admission, appears to have returned to baseline today (4) Leukocytosis Qualifiers: Qualified Codes: D72.829 - Elevated white blood cell count, unspecified Assessment & Plan: recheck CBC in a.m. (5) Diarrhea Qualifiers: Qualified Codes: R19.7 - Diarrhea, unspecified Assessment & Plan: -hx of c-diff, will send stool sample when available (6) Nausea & vomiting Qualifiers: Qualified Codes: R11.2 - Nausea with vomiting, unspecified Assessment & Plan: advance diet as tolerated (7) Cough (8) Sepsis Qualifiers: Qualified Codes: A41.9 - Sepsis, unspecified organism Assessment & Plan: -will send sputum sample if able to obtain -blood cultures pending -received 1 dose Zosyn and emergency department, will started on cefepime and azithromycin -UA shows no evidence of infection -IV steroids 4 doses -repeat labs in AM -fluid resuscitation with NS per protocol, levophed if needed per protocol (9) Pneumonia involving right lung Qualifiers: Qualified Codes: J18.9 - Pneumonia, unspecified organism Assessment & Plan: -right middle and lower lobe involvement -abx as above -will send sputum sample if able to obtain, however pt has already been started on abx so may not have any growth from sample -steroids, nebs PRN -flu test negative -BiPAP if needed to maintain sats or decreased work of breathing; start with 12/ 8 and titrate as needed for comfort Clinical Quality Measures DVT/VTE Risk/Contraindication: Risk Factor Score Per Nursin RFS Level Per Nursing on Admit: 4+=Very High JULIA JIMENEZ DO Apr 10, 2017 11:14
[2017-04-10] MEDS: NOREPINEPHRINE 4 MG in D5W IV SOLUTION (EXCEL) 250 ML IV SCH ×2 (13:17→19:23)
[2017-04-10] MEDS ORDERED: GABA-488 PO (13:22)
[2017-04-10] MEDS ORDERED: OXYC-471 PO (13:22)
--- NOTE | 2017-04-10 14:53 | Physical Therapy Evaluation ---
PT Evaluation-General Medical Diagnosis Admission Date Apr 09, 2017 at 13:00 Medical Diagnosis: severe sepsis Onset Date: Apr 09, 2017 Therapy Diagnosis Therapy Diagnosis: weakness, mobility impairments Height/Weight Height (Feet): 5 Height (Inches): 2.00 Weight (Pounds): 208 Weight (Ounces): 0.1 Precautions Precautions/Isolations: Fall Prevention, Standard Precautions Referral Physician: Smita Garner DO Reason for Referral: Evaluation/Treatment Medical History Pertinent Medical History: Atrial Fib, Arthritis, COPD, CVA, Dementia, GERD, PVD, Rheumatoid Arthritis, Smoking Additional Medical History 1. ASOD - history of bilateral stents BLE Dr. Sevilla, redo stenting Dr. Engel Lt. SFA 02/23 2. Pancreatitis 2003 3. Hyperlipidemia 4. Chronic obstructive pulmonary disease 5. RA previously evaluated by Dr. Javier 6. History of skin cancer of the face 7. Dry Gangrene Lt. Foot s/p amputation 8. "Spider Bite" with wound Left shoulder with tissue 9 DJD 10. Insomnia 11. Stroke with dysarthria and right sided weakness 12. Mild Dementia 13. hypertension 14. Dependence on supplemental oxygen - 2L NC Past Surgical History 1. Hip Replacement 2003 2. BLE Stents RT. 2003, Lt. 2012 x3 by Di (on coumadin for short period post stent) stopped by Di 3. Otolaryngologic surgery for CA bridge of nose and inner canthus of rt. eye 2009 4. Athrectomy with Lt. SFA stent [place] 02/23 5. Rt. SFA, popliteal and anterior tibial arthrectomy [place] 03/26 6. Left forefoot amputation-Reveal Current History Pt came to ER 04/09 with fever, chills, nausea, vomiting, abdominal pain, had pneumonia and was admitted. Reviewed History: Yes Social History Home: Single Level Current Living Status: Significant Other Entry Into Home: Level Entry Prior/Core FIM Prior Level of Function Functional [place] Measure 0=Not Assessed/NA 4=Minimal Assistance 1=Total Assistance 5=Supervision or Setup 2=Maximal Assistance 6=Modified [place] 3=Moderate Assistance 7=Complete [place] Bed Mobility: 7 Transfers (B,C,W/C) (FIM): 6 Gait: 6 Locomotion: 6 Wheelchair Mobility: 6 Pt daughter in room reported pt was just starting to walk more prior to admission in outpatient PT, was recovering from right knee replacement surgery that was in December. Pt was unclear and inconsistent with reporting her prior level of function, stated she was using wheelchair some, and walking with walker. PT Evaluation-Current Subjective Pt was laying in bed prior to tx and agreeable to PT. Nursing reported pts HR has been consistently high but okay to treat. Pt was sitting in chair with nurse call, phone, tray in reach, all needs met post tx, family in room. Pain Numeric Pain Scale: 0-No Pain Location: No Pain Reported Pt/Family Goals to return home with independence in mobility Objective Patient Orientation: Person, Place Attachments: Oxygen, IV telemetry, 4L oxygen ROM/Strength Strenght Lower Extremities Right (ankle DF 5/5, knee flexion 4/5, knee extension 4+/5, hip flexion 4+/5) Left (knee flexion 4+/5, knee extension 5/5, hip flexion 4+/5) Integumentary/Posture Integumentary see nursing note Neuromuscular (Tone, Coordination, Reflexes) not tested Sensory Vision: Functional Hearing: Functional Sensation Right Upper Extremit: Intact Sensation Left Upper Extremity: Intact Sensation Right Lower Extremit: Intact Sensation Left Lower Extremity: Intact Transfers Functional [place] Measure 0=Not Assessed/NA 4=Minimal Assistance 1=Total Assistance 5=Supervision or Setup 2=Maximal Assistance 6=Modified [place] 3=Moderate Assistance 7=Complete [place] Transfers (B, C, W/C) (FIM): 4 Scootin Rollin Supine to/from Sit: 4 Sit to/from Stand: 4 Pt completes bed mobility with min assist. Pt completes sit<>stand with CGA and verbal cues for hand placement and safety. Gait Mode of Locomotion: Walk Anticipated Mode of Locomotion: Walk Gait (FIM): 1 Distance (FIM): 1=up to 49 ft Distance: 15' Gait Level of Assist: 4 Gait Persons Needed: 1 Gait Assistive Device: FWW Comments/Gait Description Pt ambulates 15' with CGA and FWW for support with hunched posture. Pt becomes short of breath, is verbally cued to take deep breaths. Balance Sitting Static: Fair Sitting Dynamic: Fair Standing Static: Fair Standing Dynamic: Fair Treatment Pt completes LE strengthening exercises (AP, GS, LAQ)x20 Assessment/Needs Pt has decreased bed mobility, transfers, and gait, decreased activity tolerance , endurance, strength, and balance. Pt becomes short of breath while walking to chair, O2 saturation was assessed and is 95%. Rehab Potential: Good PT Short Term Goals Short Term Goals Time Frame: Apr 17, 2017 Transfers (B,C,W/C) (FIM): 5 Gait (FIM): 2 Distance (FIM): 3=150 ft Gait Distance Comment: 100' Gait Level of Assist: 5 Gait Assistive Device: FWW PT Plan Problem List Problem List: Activity Tolerance, Functional Strength, Safety, Balance, Gait, Transfer, Bed Mobility, ROM Treatment/Plan Treatment Plan: Continue Plan of Care Treatment Plan: Bed Mobility, Education, Functional Activity [place], Functional Strength, Gait, Safety, Therapeutic Exercise, Transfers Treatment Duration: Apr 17, 2017 Frequency: 6 times per week Estimated Hrs Per Day: .25 hour per day (15-30min) Patient and/or Family Agrees t: Yes Safety Risks/Education Patient Education: Gait Training, Transfer Techniques, Reviewed Precautions, Correct Positioning, Safety Issues Teaching Recipient: Patient Teaching Methods: Demonstration, Discussion Response to Teaching: Verbalize Understanding, Reinforcement Needed Discharge Recommendations Plan Pt will complete bed mobility, transfer and gait training, endurance, balance, and strengthening exercises, and receive safety education while admitted. Therapy D/C Recommendations: Home w/ Family Support, Halfway (TCU/NH) Time/GCodes Time In: 1420 Time Out: 1440 Total Billed Treatment Time: 20 Total Billed Treatment 1 visit 20 YANDEL RAMIREZ PT Apr 10, 2017 14:53
[2017-04-10] MEDS: ENOXAPARIN 40 MG/0.4 ML (LOVENOX) SYR SC SCH (15:34)
[2017-04-10] MEDS: AZITHROMYCIN INJECTION 500 MG in NS (IVPB) 250 ML IV SCH (15:34)
[2017-04-10] MEDS: CEFEPIME INJECTION 2,000 MG in NS (IVPB) 50 ML IV SCH (19:56)
[2017-04-10] MEDS: ASPIRIN E.C. 81 MG (ECOTRIN) TAB PO SCH (19:58)
[2017-04-10] MEDS: ALPRAZolam 0.5 MG (XANAX) TAB PO SCH (19:58)
[2017-04-10] MEDS: DOXEPIN 25 MG (SINEquan) CAP PO SCH (19:59)
[2017-04-10] MEDS: RT-ALBUTEROL SULF 2.5 MG/3 ML PRE-MIX VIAL INH PRN (20:41)
[2017-04-10] MEDS ORDERED: FUROSEMIDE 40 MG/4 ML INJ (LASIX) IV ONE (21:15)
[2017-04-11] VITALS (17 sets, daily range): BP systolic 110–150; BP diastolic 52–99
[2017-04-11] MEDS: RT-ALBUTEROL/IPRATROPIUM 3 ML (DUONEB) VIAL INH SCH ×6 (02:02→22:05)
[2017-04-11] MEDS: NOREPINEPHRINE 4 MG in D5W IV SOLUTION (EXCEL) 250 ML IV SCH ×2 (03:56→09:05)
[2017-04-11 04:42] LABS: BASOPHILS % (AUTO) 0 % (0-10); EOSINOPHILS % (AUTO) 0 % (0-10); LYMPHOCYTES # (AUTO) 1.8 X 10^3 (1.0-4.0); LYMPHOCYTES % (AUTO) 6 % (12-44); MEAN CORPUSCULAR HEMOGLOBIN 30 PG (25-34); MEAN CORPUSCULAR HGB CONC 32 G/DL (32-36); MEAN CORPUSCULAR VOLUME 93 FL (80-99); MEAN PLATELET VOLUME 10.4 FL (7.4-10.4); MONOCYTES # (AUTO) 1.5 X 10^3 (0.0-1.0); MONOCYTES % (AUTO) 5 % (0-12); NEUTROPHILS # (AUTO) 24.8 X 10^3 (1.8-7.8); NEUTROPHILS % (AUTO) 88 % (42-75); PLATELET COUNT 263 10^3/uL (130-400); RED BLOOD COUNT 3.32 10^6/uL (4.35-5.85); RED CELL DISTRIBUTION WIDTH 15.4 % (10.0-14.5); WHITE BLOOD COUNT 28.2 10^3/uL (4.3-11.0)
[2017-04-11 05:04] LABS: ALANINE AMINOTRANSFERASE 22 U/L (0-55); ALBUMIN 3.2 GM/DL (3.2-4.5); ANION GAP 9 MMOL/L (5-14); ASPARTATE AMINO TRANSFERASE 17 U/L (5-34); BILIRUBIN,TOTAL 0.7 MG/DL (0.1-1.0); BLOOD UREA NITROGEN 19 MG/DL (7-18); BUN/CREATININE RATIO 25; CALCIUM 8.8 MG/DL (8.5-10.1); CARBON DIOXIDE 22 MMOL/L (21-32); CHLORIDE 113 MMOL/L (98-107); CREATININE SERUM 0.75 MG/DL (0.60-1.30); GFR ESTIMATED > 60; GLUCOSE 133 MG/DL (70-105); MAGNESIUM 1.8 MG/DL (1.8-2.4); PHOSPHORUS 2.4 MG/DL (2.3-4.7); POTASSIUM 3.3 MMOL/L (3.6-5.0); SODIUM 144 MMOL/L (135-145); TOTAL PROTEIN 6.9 GM/DL (6.4-8.2)
[2017-04-11] MEDS: inSUlin (REGULAR) HUMAN 1 UNIT/0.01 ML (CHARGE PER UNIT) SC SCH ×4 (05:33→21:00)
[2017-04-11] MEDS: KCL 20 MEQ TAB (K-DUR) PO SCH (05:33)
[2017-04-11] MEDS: POTASSIUM CL 10MEQ/50ML IVPB 50 ML IV SCH ×5 (05:33→07:57)
[2017-04-11] MEDS: MAGNESIUM 1 GM/100 ML IVPB 100 ML IV SCH (05:33)
[2017-04-11 05:43] LABS: PROTHROMBIN TIME PATIENT 13.3 SEC (12.2-14.7)
[2017-04-11] MEDS: PANTOPRAZOLE 40 MG (PROTONIX) TAB PO SCH (05:46)
[2017-04-11] MEDS: MULTIVIT W/MINERALS TAB (THERAGRAN M) PO SCH (05:47)
[2017-04-11] MEDS: UMECLIDINIUM BROMIDE (INCRUSE ELLIPTA) 7'S IH SCH (06:56)
[2017-04-11] MEDS: VERAPAMIL PM 100 MG (VERELAN PM) CAP.SR.24H PO SCH (07:54)
[2017-04-11] MEDS: LACTOBACILLUS Acidoph/Bulgar (LACTINEX/FLORANEX) TAB PO SCH ×2 (07:54→20:47)
[2017-04-11] MEDS: meTOprolol TARTRATE 25 MG (LOPRESSOR) TABLET PO SCH ×2 (07:55→20:48)
[2017-04-11] MEDS: ASCORBIC ACID (VIT C) 500 MG TABLET PO SCH (07:55)
[2017-04-11] MEDS: FAMOTIDINE 20 MG (PEPCID) TABLET PO SCH ×2 (07:55→20:48)
[2017-04-11] MEDS: MONTELUKAST 10 MG (SINGULAIR) TAB PO SCH (07:55)
[2017-04-11] MEDS: VITAMIN D3 1,000 UNITS (CHOLECALCIFEROL) TABLET PO SCH (07:55)
[2017-04-11] MEDS: LORATADINE (CLARITIN) 10 MG TAB PO SCH (07:55)
[2017-04-11] MEDS: SERTRALINE 50 MG (ZOLOFT) TABLET PO SCH (07:56)
[2017-04-11] MEDS: GABAPENTIN 600 MG (NEURONTIN) TAB PO SCH ×3 (07:56→20:47)
[2017-04-11] MEDS: DICLOFENAC 1% GEL 100 GM (VOLTAREN) TUBE TP SCH ×2 (07:56→20:45)
--- NOTE | 2017-04-11 09:03 | Diagnostic Imaging Report ---
INDICATION: Sepsis. Pneumonia Upright portable chest shows normal heart size and vascularity. There remains patchy airspace disease in the right lung. The right upper lobe is similar to the 04/10/17 study. There may be slightly more atelectasis or infiltrate at the right lung base. There is no effusion or pneumothorax. Left lung remains clear. IMPRESSION: Slightly more atelectasis or infiltrate at the right lung base otherwise stable chest. Dictated by: Dictated on workstation # [id number]
--- NOTE | 2017-04-11 11:21 | Progress Note (SOAP) ---
Subjective Subjective/Events-last exam Patient reports that she is feeling much better this morning. She received one dose of lasix yesterrday, and nursing staff reports that since then, she has been much improved - less shortness of breath with activity. Patient denies pain and reports she feels that her breathing is much better than yesterday. Her heartrate has been much better controlled, and has been <100 since restarting her verapamil and the addition of lopressor BID by Dr. Samuels. Review of Systems Date Seen by Provider: Apr 11, 2017 Time Seen by Provider: 11:05 General: No Chills, No Night Sweats HEENT: No Head Aches, No Eye Pain, No Dysphasia, No Sore Throat Pulmonary: Cough, No Pleuritic Chest Pain Cardiovascular: No: Chest Pain, Palpitations, Lt Headedness Gastrointestinal: No: Nausea, Vomiting, Abdominal Pain, Diarrhea, Constipation Musculoskeletal: No: neck pain, leg pain Neurological: No: Weakness, Change in speech, Confusion, Seizures Objective Exam Last Set of Vital Signs Vital Signs Date Time Temp Pulse Resp B/P (MAP) Pulse Ox O2 Delivery O2 Flow Rate FiO2 04/11/17 10:21 98 Nasal Cannula 3.00 04/11/17 07:59 98.1 04/11/17 07:00 75 04/11/17 06:00 15 04/09/17 15:50 4 Capillary Refill : Less Than 3 Seconds I&O Intake and Output 04/11/17 23:59 Intake Total 700 ml Output Total 1900 ml Balance -1200 ml Intake Oral 700 ml Output Urine Total 1900 ml # Bowel Movements 1 General: Alert, Oriented X3, Cooperative, No Acute Distress HEENT: Atraumatic, EOMI, Mucous Memb Moist/[place] Neck: Supple, No JVD, No Thyromegaly Lungs: Other (scattered wheezes, much improved from previous exams) Heart: Normal S1, Normal S2, Other (NSR per telemetry) Abdomen: Normal Bowel Sounds, Soft, No Tenderness, No Hepatosplenomegaly, No Masses Extremities: No Clubbing, No Cyanosis, No Tenderness/Swelling Skin: No Rashes, No Significant Lesion Neuro: Normal Speech, Normal Tone, Sensation Intact, Cranial Nerves 3-12 NL Psych/Mental Status: Mental Status NL, Mood NL Results/Procedures Lab Laboratory Tests 04/10/17 13:26: Glucometer 139H 04/10/17 19:55: Glucometer 338H 04/11/17 04:25: White Blood Count 28.2H, Red Blood Count 3.32L, Hemoglobin 9.9L, Hematocrit 31L , Mean Corpuscular Volume 93, Mean Corpuscular Hemoglobin 30, Mean Corpuscular Hemoglobin Concent 32, Red Cell Distribution Width 15.4H, Platelet Count 263, Mean Platelet Volume 10.4, Neutrophils (%) (Auto) 88H, Lymphocytes (%) (Auto) 6L , Monocytes (%) (Auto) 5, Eosinophils (%) (Auto) 0, Basophils (%) (Auto) 0, Neutrophils # (Auto) 24.8H, Lymphocytes # (Auto) 1.8, Monocytes # (Auto) 1.5H, Eosinophils # (Auto) 0.0, Basophils # (Auto) 0.0, Prothrombin Time 13.3, INR Comment 1.0, Activated Partial Thromboplast Time 30, Sodium Level 144, Potassium Level 3.3L, Chloride Level 113H, Carbon Dioxide Level 22, Anion Gap 9 , Blood Urea Nitrogen 19H, Creatinine 0.75, Estimat Glomerular Filtration Rate > 60, BUN/Creatinine Ratio 25, Glucose Level 133H, Calcium Level 8.8, Phosphorus Level 2.4, Magnesium Level 1.8, Total Bilirubin 0.7, Aspartate Amino Transf (AST/SGOT) 17, Alanine Aminotransferase (ALT/SGPT) 22, Alkaline Phosphatase 59, Total Protein 6.9, Albumin 3.2 Microbiology 04/09/17 Blood Culture - Preliminary, Resulted No growth 04/11/17 C. difficile GDH Antigen & Toxins - Final, Resulted 04/11/17 Stool Culture, Resulted Pending 04/09/17 MRSA Screen - Final, Complete MRSA not isolated Radiology CT Chest/Abd/Pelvis: CT chest: Patchy areas of consolidation mostly involving the right lung are concerning for pneumonia. CT abdomen and pelvis: Hepatic steatosis. No urinary tract stones or hydronephrosis. CXR: Right perihilar and basilar patchy infiltrates concerning for pneumonia. There is minimal background vascular congestion. Procedures left subclavian CVL placement per Dr. Padron Assessment/Plan Assessment/Plan Admission Dx severe sepsis Right lower and middle lobe pneumonia Leukocytosis Tachycardia Hypoxia requiring increased oxygen supplementation nausea, vomiting, diarrhea History of C. difficile Steatohepatitis COPD Hypertension Anxiety Plan Continue antibiotics - Cefepime and Azithriomycin, now on Day #3 -PT to see pt to work with her for strength building -continue supplemental oxygen as needed; continue to consider bipap intermittently if pt will tolerate; -HR with much better control after restarting verapamil and addition of lopressor by Dr. Samuels yesterday -will transfer patient out of the ICU and to medical floor with telemetry later today -continue gait training and strength building with PT Patient's daughter Ratna is DPOA CODE STATUS: Full Clinical condition: Good Prognosis: Good Based on the patient's severity of illness, including her severe sepsis secondary to right-sided pneumonia as well as her existing lung disease and dependence on oxygen, she requires inpatient level of care and has an anticipated length of stay of an additional 24-48 hours for treatment of her pneumonia as well as management of her other comorbid conditions. Diagnosis/Problems: (1) Fever Qualifiers: Qualified Codes: R50.9 - Fever, unspecified Assessment & Plan: resolved (2) Abdominal pain Qualifiers: Qualified Codes: R10.84 - Generalized abdominal pain Assessment & Plan: -CT shows steatohepatitis -elevated bilirubin -hx of c-diff, reported diarrhea, will send sample for testing when available (3) Altered mental status Qualifiers: Assessment & Plan: -hx of stroke, but family reports more confused than normal on admission, appears to have returned to baseline today (4) Leukocytosis Qualifiers: Qualified Codes: D72.829 - Elevated white blood cell count, unspecified Assessment & Plan: recheck CBC in a.m. (5) Diarrhea Qualifiers: Qualified Codes: R19.7 - Diarrhea, unspecified Assessment & Plan: -hx of c-diff, will send stool sample when available (6) Nausea & vomiting Qualifiers: Qualified Codes: R11.2 - Nausea with vomiting, unspecified Assessment & Plan: resolved (7) Cough Assessment & Plan: improving (8) Sepsis Qualifiers: Qualified Codes: A41.9 - Sepsis, unspecified organism Assessment & Plan: -will send sputum sample if able to obtain -blood cultures pending -received 1 dose Zosyn and emergency department, will started on cefepime and azithromycin -UA shows no evidence of infection -IV steroids 4 doses -repeat labs in AM -fluid resuscitation with NS per protocol, levophed if needed per protocol (9) Pneumonia involving right lung Qualifiers: Qualified Codes: J18.9 - Pneumonia, unspecified organism Assessment & Plan: -right middle and lower lobe involvement -abx as above -will send sputum sample if able to obtain, however pt has already been started on abx so may not have any growth from sample -steroids, nebs PRN -flu test negative -BiPAP if needed to maintain sats or decreased work of breathing; start with 12/ 8 and titrate as needed for comfort (10) Anemia Qualifiers: Qualified Codes: D64.9 - Anemia, unspecified (11) Hypokalemia Assessment & Plan: replace per protocol, recheck in AM (12) Hyperchloremia Clinical Quality Measures DVT/VTE Risk/Contraindication: Risk Factor Score Per Nursin RFS Level Per Nursing on Admit: 4+=Very High JULIA JIMENEZ DO Apr 11, 2017 11:20
--- NOTE | 2017-04-11 11:39 | Physical Therapy Daily Note ---
PT Daily Note-Current Subjective States that she had a bad night last night and still doesn't feel real well. Transfers Functional [place] Measure 0=Not Assessed/NA 4=Minimal Assistance 1=Total Assistance 5=Supervision or Setup 2=Maximal Assistance 6=Modified [place] 3=Moderate Assistance 7=Complete IndependenceIRFPAI Quality Coding Scale 6 Independent with activity with or without an assistive device 5 Patient requires set up or clean up by helper. Patient completes activity by themselves 4 Supervision or touching assist (CGA). [place] provide cues , steadying assist 3 The helper provides less than half the effort to complete the activity 2 The helper provides more than half the effort to complete the activity 1 Dependent. The helper does all the effort to complete an activity 7 Patient refused to complete or attempt activity 9 The patient did not perform the activity before the current illness or injury 88 Not attempted due to Medical conditions or safety concerns Exercises Supine Ex: LE Protocol Supine Reps: 20 Assessment Current Status: Good Progress Patient had increased respiration rate during exercises today. PT Short Term Goals Short Term Goals Time Frame: Apr 17, 2017 Transfers (B,C,W/C) (FIM): 5 Gait (FIM): 2 Distance (FIM): 3=150 ft Gait Distance Comment: 100' Gait Level of Assist: 5 Gait Assistive Device: FWW PT Plan Treatment/Plan Treatment Plan: Continue Plan of Care Treatment Plan: Bed Mobility, Education, Functional Activity [place], Functional Strength, Gait, Safety, Therapeutic Exercise, Transfers Treatment Duration: Apr 17, 2017 Frequency: 6 times per week Estimated Hrs Per Day: .25 hour per day (15-30min) Patient and/or Family Agrees t: Yes Time/GCodes Time In: 1105 Time Out: 1115 Total Billed Treatment Time: 10 Total Billed Treatment 1, EX XIANG AHUMADA PT Apr 11, 2017 11:39
[2017-04-11] MEDS: AZITHROMYCIN INJECTION 500 MG in NS (IVPB) 250 ML IV SCH (15:22)
[2017-04-11] MEDS: ENOXAPARIN 40 MG/0.4 ML (LOVENOX) SYR SC SCH (15:22)
[2017-04-11] MEDS: RT-ALBUTEROL SULF 2.5 MG/3 ML PRE-MIX VIAL INH PRN (19:45)
[2017-04-11] MEDS: ALPRAZolam 0.5 MG (XANAX) TAB PO SCH (20:47)
[2017-04-11] MEDS: DOXEPIN 25 MG (SINEquan) CAP PO SCH (20:47)
[2017-04-11] MEDS: ASPIRIN E.C. 81 MG (ECOTRIN) TAB PO SCH (20:48)
[2017-04-11] MEDS: CEFEPIME INJECTION 2,000 MG in NS (IVPB) 50 ML IV SCH (20:51)
[2017-04-11 23:12] LABS: ABG BASE EXCESS -1.5 MMOL/L (-2.5-2.5); ABG HCO3 24 MMOL/L (23-27); ABG OXYGEN SATURATION 91 % (94-100); ABG PCO2 47 MMHG (35-45); ABG PO2 60 MMHG (79-93); ABG TCO2 24.9 MMOL/L (21.0-31.0)
[2017-04-11 23:15] LABS: ALLENS TEST YES-POS; PATIENT TEMP 99.5
[2017-04-11 23:17] LABS: ABG PH 7.33 (7.37-7.43)
[2017-04-11] MEDS ORDERED: FUROSEMIDE 40 MG/4 ML INJ (LASIX) IVP ONE (23:30)
[2017-04-12] VITALS (7 sets, daily range): BP systolic 99–131; BP diastolic 59–87
[2017-04-12 05:13] LABS: BASOPHILS % (AUTO) 0 % (0-10); EOSINOPHILS % (AUTO) 0 % (0-10); LYMPHOCYTES # (AUTO) 4.4 X 10^3 (1.0-4.0); LYMPHOCYTES % (AUTO) 17 % (12-44); MEAN CORPUSCULAR HEMOGLOBIN 30 PG (25-34); MEAN CORPUSCULAR HGB CONC 32 G/DL (32-36); MEAN CORPUSCULAR VOLUME 93 FL (80-99); MEAN PLATELET VOLUME 10.3 FL (7.4-10.4); MONOCYTES # (AUTO) 1.5 X 10^3 (0.0-1.0); MONOCYTES % (AUTO) 6 % (0-12); NEUTROPHILS # (AUTO) 19.3 X 10^3 (1.8-7.8); NEUTROPHILS % (AUTO) 77 % (42-75); PLATELET COUNT 275 10^3/uL (130-400); RED BLOOD COUNT 3.49 10^6/uL (4.35-5.85); RED CELL DISTRIBUTION WIDTH 15.6 % (10.0-14.5); WHITE BLOOD COUNT 25.2 10^3/uL (4.3-11.0)
[2017-04-12 05:21] LABS: PROTHROMBIN TIME PATIENT 13.3 SEC (12.2-14.7)
[2017-04-12 05:32] LABS: ALANINE AMINOTRANSFERASE 23 U/L (0-55); ALBUMIN 3.3 GM/DL (3.2-4.5); ANION GAP 9 MMOL/L (5-14); ASPARTATE AMINO TRANSFERASE 19 U/L (5-34); BILIRUBIN,TOTAL 1.4 MG/DL (0.1-1.0); BLOOD UREA NITROGEN 20 MG/DL (7-18); BUN/CREATININE RATIO 26; CARBON DIOXIDE 27 MMOL/L (21-32); CHLORIDE 107 MMOL/L (98-107); CREATININE SERUM 0.76 MG/DL (0.60-1.30); GFR ESTIMATED > 60; GLUCOSE 94 MG/DL (70-105); MAGNESIUM 1.3 MG/DL (1.8-2.4); PHOSPHORUS 2.3 MG/DL (2.3-4.7); POTASSIUM 3.3 MMOL/L (3.6-5.0); SODIUM 143 MMOL/L (135-145); TOTAL PROTEIN 7.1 GM/DL (6.4-8.2)
[2017-04-12] MEDS: MULTIVIT W/MINERALS TAB (THERAGRAN M) PO SCH (06:40)
[2017-04-12] MEDS: PANTOPRAZOLE 40 MG (PROTONIX) TAB PO SCH (06:40)
[2017-04-12] MEDS: inSUlin (REGULAR) HUMAN 1 UNIT/0.01 ML (CHARGE PER UNIT) SC SCH ×4 (06:49→23:02)
[2017-04-12] MEDS: RT-ALBUTEROL/IPRATROPIUM 3 ML (DUONEB) VIAL INH SCH ×7 (07:07→22:29)
[2017-04-12] MEDS: UMECLIDINIUM BROMIDE (INCRUSE ELLIPTA) 7'S IH SCH (07:10)
[2017-04-12] MEDS: VERAPAMIL PM 100 MG (VERELAN PM) CAP.SR.24H PO SCH (08:30)
[2017-04-12] MEDS: ASCORBIC ACID (VIT C) 500 MG TABLET PO SCH (08:30)
[2017-04-12] MEDS: LACTOBACILLUS Acidoph/Bulgar (LACTINEX/FLORANEX) TAB PO SCH ×2 (08:30→22:00)
[2017-04-12] MEDS: FAMOTIDINE 20 MG (PEPCID) TABLET PO SCH ×2 (08:30→22:00)
[2017-04-12] MEDS: SERTRALINE 50 MG (ZOLOFT) TABLET PO SCH (08:30)
[2017-04-12] MEDS: MONTELUKAST 10 MG (SINGULAIR) TAB PO SCH (08:31)
[2017-04-12] MEDS: GABAPENTIN 600 MG (NEURONTIN) TAB PO SCH ×3 (08:31→22:00)
[2017-04-12] MEDS: meTOprolol TARTRATE 25 MG (LOPRESSOR) TABLET PO SCH ×2 (08:31→22:01)
[2017-04-12] MEDS: VITAMIN D3 1,000 UNITS (CHOLECALCIFEROL) TABLET PO SCH (08:31)
[2017-04-12] MEDS: DICLOFENAC 1% GEL 100 GM (VOLTAREN) TUBE TP SCH ×2 (08:31→22:02)
[2017-04-12] MEDS: LORATADINE (CLARITIN) 10 MG TAB PO SCH (08:31)
--- NOTE | 2017-04-12 09:49 | Progress Note (SOAP) ---
Subjective Subjective/Events-last exam Overnight, the patient had an episode of tachypnea and decreased oxygen saturations. She was refusing her breathing treatments as well. She did agree to BiPap and later in the night she had a brief period of tachycardia. No intervention was performed, and the patient's heart rate returned to below 100 after a short period of time. This morning the patient reports that she is tired, becaue she did not get much sleep last night, but that she feels better today than she has in the last several days in terms of her breathing. She reports that she is breathing better than she has been, she is coughing somewhat more, but her cough remains non-productive. Review of Systems Date Seen by Provider: Apr 12, 2017 Time Seen by Provider: 10:45 General: No Chills, Fatigue HEENT: No Head Aches, No Eye Pain, No Ear Pain, No Dysphasia, No Sore Throat Pulmonary: Dyspnea, Cough, No Pleuritic Chest Pain Cardiovascular: No: Chest Pain, Palpitations, Lt Headedness Gastrointestinal: No: Nausea, Vomiting, Abdominal Pain Genitourinary: No Dysuria, Frequency, No Retention Musculoskeletal: No: shoulder pain, back pain, leg pain Neurological: No: Numbness, Change in speech, Confusion, Seizures Objective Exam Last Set of Vital Signs Vital Signs Date Time Temp Pulse Resp B/P (MAP) Pulse Ox O2 Delivery O2 Flow Rate FiO2 04/12/17 09:37 76 Nasal Cannula 4.00 04/12/17 08:00 97.5 20 131/75 98 04/09/17 15:50 4 Capillary Refill : Less Than 3 Seconds I&O Intake and Output 04/12/17 23:59 Intake Total 500 ml Output Total 1400 ml Balance -900 ml Intake Oral 500 ml Output Urine Total 1400 ml # Voids 3 General: Alert, Oriented X3, Cooperative, No Acute Distress HEENT: Atraumatic, EOMI, Mucous Memb Moist/[place] Neck: Supple, No Thyromegaly Lungs: Other (diminished with diffuse wheezing, mild crackles noted in right base) Heart: Regular Rate, Normal S1, Normal S2 Abdomen: Normal Bowel Sounds, Soft, No Tenderness, No Masses Extremities: No Clubbing, No Cyanosis, No Edema Skin: No Rashes, No Significant Lesion Neuro: Normal Speech, Normal Tone, Sensation Intact Psych/Mental Status: Mental Status NL, Mood NL Results/Procedures Lab Laboratory Tests 04/11/17 15:20: Glucometer 139H 04/11/17 21:00: Glucometer 94 04/11/17 22:55: Blood Gas Puncture Site L RAD, Blood Gas Patient Temperature 99.5, Arterial Blood pH 7.33*L, Arterial Blood Partial Pressure CO2 47H, Arterial Blood Partial Pressure O2 60L, Arterial Blood HCO3 24, Arterial Blood Total CO2 24.9, Arterial Blood Oxygen Saturation 91L, Arterial Blood Base Excess -1.5, Jerry Test YES-POS, Blood Gas Ventilator Setting NO, Blood Gas Inspired Oxygen 4L 04/12/17 04:50: White Blood Count 25.2H, Red Blood Count 3.49L, Hemoglobin 10.4L, Hematocrit 33L , Mean Corpuscular Volume 93, Mean Corpuscular Hemoglobin 30, Mean Corpuscular Hemoglobin Concent 32, Red Cell Distribution Width 15.6H, Platelet Count 275, Mean Platelet Volume 10.3, Neutrophils (%) (Auto) 77H, Lymphocytes (%) (Auto) 17 , Monocytes (%) (Auto) 6, Eosinophils (%) (Auto) 0, Basophils (%) (Auto) 0, Neutrophils # (Auto) 19.3H, Lymphocytes # (Auto) 4.4H, Monocytes # (Auto) 1.5H, Eosinophils # (Auto) 0.0, Basophils # (Auto) 0.0, Prothrombin Time 13.3, INR Comment 1.0, Activated Partial Thromboplast Time 29, Sodium Level 143, Potassium Level 3.3L, Chloride Level 107, Carbon Dioxide Level 27, Anion Gap 9, Blood Urea Nitrogen 20H, Creatinine 0.76, Estimat Glomerular Filtration Rate > 60, BUN/Creatinine Ratio 26, Glucose Level 94, Calcium Level 9.0, Phosphorus Level 2.3, Magnesium Level 1.3L, Total Bilirubin 1.4H, Aspartate Amino Transf ( AST/SGOT) 19, Alanine Aminotransferase (ALT/SGPT) 23, Alkaline Phosphatase 64, Total Protein 7.1, Albumin 3.3 Microbiology 04/09/17 Blood Culture - Preliminary, Resulted No growth 04/11/17 C. difficile GDH Antigen & Toxins - Final, Resulted 04/11/17 Stool Culture, Resulted Pending 04/09/17 MRSA Screen - Final, Complete MRSA not isolated Radiology CT Chest/Abd/Pelvis: CT chest: Patchy areas of consolidation mostly involving the right lung are concerning for pneumonia. CT abdomen and pelvis: Hepatic steatosis. No urinary tract stones or hydronephrosis. CXR: Right perihilar and basilar patchy infiltrates concerning for pneumonia. There is minimal background vascular congestion. Procedures left subclavian CVL placement per Dr. Padron Assessment/Plan Assessment/Plan Admission Dx severe sepsis Right lower and middle lobe pneumonia Leukocytosis Tachycardia Hypoxia requiring increased oxygen supplementation nausea, vomiting, diarrhea History of C. difficile Steatohepatitis COPD Hypertension Anxiety Plan Continue antibiotics - Cefepime and Azithriomycin, now on Day #4 -PT to see pt to work with her for strength building -continue supplemental oxygen as needed; continue to consider bipap intermittently if pt will tolerate; -HR with much better control after restarting verapamil and addition of lopressor by Dr. Samuels yesterday -will give Lasix 40 mg x1 now -pt received 48 hours of steroids, but given her existing lung disease in addition to her current illness, patient may benefit from more prolonged course of steroids; will start on 40 mg PO x3 days, then 20 mg PO x3 days, then 10 mg PO x3 days -hypokalemia, hypomagnesemia; replaced and will recheck in AM -continue gait training and strength building with PT Patient's daughter Ratna GONZALES was present at bedside this morning during exam, and all questions were answered regarding plan of care CODE STATUS: Full Clinical condition: Good Prognosis: Good Based on the patient's severity of illness, including her severe sepsis secondary to right-sided pneumonia as well as her existing lung disease and dependence on oxygen, she requires inpatient level of care and has an anticipated length of stay of an additional 24-48 hours for treatment of her pneumonia as well as management of her other comorbid conditions. Diagnosis/Problems: (1) Fever Qualifiers: Qualified Codes: R50.9 - Fever, unspecified Assessment & Plan: resolved (2) Abdominal pain Qualifiers: Qualified Codes: R10.84 - Generalized abdominal pain Assessment & Plan: -CT shows steatohepatitis -elevated bilirubin -hx of c-diff, reported diarrhea, will send sample for testing when available (3) Altered mental status Qualifiers: Assessment & Plan: -hx of stroke, but family reports more confused than normal on admission, appears to have returned to baseline today (4) Leukocytosis Qualifiers: Qualified Codes: D72.829 - Elevated white blood cell count, unspecified Assessment & Plan: recheck CBC in a.m. (5) Diarrhea Qualifiers: Qualified Codes: R19.7 - Diarrhea, unspecified Assessment & Plan: -hx of c-diff, will send stool sample when available (6) Nausea & vomiting Qualifiers: Qualified Codes: R11.2 - Nausea with vomiting, unspecified Assessment & Plan: resolved (7) Cough Assessment & Plan: -add mucinex to help thin secretions -continue nebs as before (8) Sepsis Qualifiers: Qualified Codes: A41.9 - Sepsis, unspecified organism Assessment & Plan: -will send sputum sample if able to obtain -blood cultures pending -received 1 dose Zosyn and emergency department, will started on cefepime and azithromycin -UA shows no evidence of infection -IV steroids 4 doses -repeat labs in AM -fluid resuscitation with NS per protocol, levophed if needed per protocol (9) Pneumonia involving right lung Qualifiers: Qualified Codes: J18.9 - Pneumonia, unspecified organism Assessment & Plan: -right middle and lower lobe involvement -abx as above -will send sputum sample if able to obtain, however pt has already been started on abx so may not have any growth from sample -steroids, nebs PRN -flu test negative -BiPAP if needed to maintain sats or decreased work of breathing; start with 12/ 8 and titrate as needed for comfort (10) Anemia Qualifiers: Qualified Codes: D64.9 - Anemia, unspecified (11) Hypokalemia Assessment & Plan: replace per protocol, recheck in AM (12) Hyperchloremia Clinical Quality Measures DVT/VTE Risk/Contraindication: Risk Factor Score Per Nursin RFS Level Per Nursing on Admit: 4+=Very High JULIA JIMENEZ DO Apr 12, 2017 09:49
[2017-04-12] MEDS: predniSONE 20 MG TAB PO SCH (10:28)
[2017-04-12] MEDS: MAGNESIUM 1 GM/100 ML IVPB 100 ML IV SCH ×3 (10:29→12:00)
[2017-04-12] MEDS: POTASSIUM CL 10MEQ/50ML IVPB 50 ML IV SCH ×3 (10:30→13:14)
[2017-04-12] MEDS ORDERED: LORazepam INJ 2 MG/ML (ATIVAN) VIAL IVP PRN (11:15)
[2017-04-12] MEDS ORDERED: FUROSEMIDE 40 MG/4 ML INJ (LASIX) IVP ONE (11:15)
[2017-04-12] MEDS: guaiFENesin (MUCINEX) 600 MG TAB PO SCH ×2 (11:59→22:00)
[2017-04-12] MEDS: AZITHROMYCIN INJECTION 500 MG in NS (IVPB) 250 ML IV SCH (15:16)
[2017-04-12] MEDS: ENOXAPARIN 40 MG/0.4 ML (LOVENOX) SYR SC SCH (15:16)
[2017-04-12] MEDS: ASPIRIN E.C. 81 MG (ECOTRIN) TAB PO SCH (22:00)
[2017-04-12] MEDS: CEFEPIME INJECTION 2,000 MG in NS (IVPB) 50 ML IV SCH (22:01)
[2017-04-12] MEDS: DOXEPIN 25 MG (SINEquan) CAP PO SCH (22:01)
[2017-04-12] MEDS: ALPRAZolam 0.5 MG (XANAX) TAB PO SCH (22:01)
[2017-04-13 00:15] VITALS: BP 124/68
[2017-04-13] MEDS: RT-ALBUTEROL/IPRATROPIUM 3 ML (DUONEB) VIAL INH SCH ×3 (02:55→11:03)
[2017-04-13 04:00] VITALS: BP 139/76
[2017-04-13] MEDS: inSUlin (REGULAR) HUMAN 1 UNIT/0.01 ML (CHARGE PER UNIT) SC SCH ×2 (05:45→11:36)
[2017-04-13] MEDS: PANTOPRAZOLE 40 MG (PROTONIX) TAB PO SCH (06:28)
[2017-04-13] MEDS: MULTIVIT W/MINERALS TAB (THERAGRAN M) PO SCH (06:28)
[2017-04-13] MEDS: predniSONE 20 MG TAB PO SCH (06:29)
[2017-04-13 06:45] LABS: BASOPHILS % (AUTO) 0 % (0-10); EOSINOPHILS % (AUTO) 0 % (0-10); LYMPHOCYTES # (AUTO) 3.5 X 10^3 (1.0-4.0); LYMPHOCYTES % (AUTO) 26 % (12-44); MEAN CORPUSCULAR HEMOGLOBIN 30 PG (25-34); MEAN CORPUSCULAR HGB CONC 32 G/DL (32-36); MEAN CORPUSCULAR VOLUME 92 FL (80-99); MONOCYTES % (AUTO) 7 % (0-12); NEUTROPHILS % (AUTO) 67 % (42-75); PLATELET COUNT 264 10^3/uL (130-400); RED BLOOD COUNT 3.25 10^6/uL (4.35-5.85); RED CELL DISTRIBUTION WIDTH 15.1 % (10.0-14.5); WHITE BLOOD COUNT 13.5 10^3/uL (4.3-11.0)
[2017-04-13 06:54] LABS: PROTHROMBIN TIME PATIENT 12.8 SEC (12.2-14.7)
[2017-04-13 07:02] LABS: ALANINE AMINOTRANSFERASE 21 U/L (0-55); ANION GAP 10 MMOL/L (5-14); ASPARTATE AMINO TRANSFERASE 13 U/L (5-34); BILIRUBIN,TOTAL 0.9 MG/DL (0.1-1.0); BLOOD UREA NITROGEN 17 MG/DL (7-18); BUN/CREATININE RATIO 26; CALCIUM 8.8 MG/DL (8.5-10.1); CARBON DIOXIDE 28 MMOL/L (21-32); CHLORIDE 106 MMOL/L (98-107); CREATININE SERUM 0.65 MG/DL (0.60-1.30); GFR ESTIMATED > 60; GLUCOSE 95 MG/DL (70-105); MAGNESIUM 1.9 MG/DL (1.8-2.4); PHOSPHORUS 2.8 MG/DL (2.3-4.7); POTASSIUM 3.5 MMOL/L (3.6-5.0); SODIUM 144 MMOL/L (135-145); TOTAL PROTEIN 6.6 GM/DL (6.4-8.2)
[2017-04-13] MEDS: UMECLIDINIUM BROMIDE (INCRUSE ELLIPTA) 7'S IH SCH (07:20)
[2017-04-13 08:49] VITALS: BP 137/71
[2017-04-13] MEDS: SERTRALINE 50 MG (ZOLOFT) TABLET PO SCH (08:57)
[2017-04-13] MEDS: meTOprolol TARTRATE 25 MG (LOPRESSOR) TABLET PO SCH (08:57)
[2017-04-13] MEDS: VERAPAMIL PM 100 MG (VERELAN PM) CAP.SR.24H PO SCH (08:57)
[2017-04-13] MEDS: guaiFENesin (MUCINEX) 600 MG TAB PO SCH (08:58)
[2017-04-13] MEDS: LACTOBACILLUS Acidoph/Bulgar (LACTINEX/FLORANEX) TAB PO SCH (08:58)
[2017-04-13] MEDS: MONTELUKAST 10 MG (SINGULAIR) TAB PO SCH (08:59)
[2017-04-13] MEDS: GABAPENTIN 600 MG (NEURONTIN) TAB PO SCH ×2 (08:59→13:28)
[2017-04-13] MEDS: VITAMIN D3 1,000 UNITS (CHOLECALCIFEROL) TABLET PO SCH (09:00)
[2017-04-13] MEDS: ASCORBIC ACID (VIT C) 500 MG TABLET PO SCH (09:00)
[2017-04-13] MEDS: LORATADINE (CLARITIN) 10 MG TAB PO SCH ×2 (09:08→09:10)
[2017-04-13] MEDS: DICLOFENAC 1% GEL 100 GM (VOLTAREN) TUBE TP SCH (09:11)
[2017-04-13] MEDS: FAMOTIDINE 20 MG (PEPCID) TABLET PO SCH (09:11)
--- NOTE | 2017-04-13 10:17 | Physical Therapy Daily Note ---
PT Daily Note-Current Subjective Patient agrees to PT. No c/o. Pain Numeric Pain Scale: 0-No Pain Location: No Pain Reported Mental Status Patient Orientation: Normal For Age Attachments: Oxygen Transfers Functional [place] Measure 0=Not Assessed/NA 4=Minimal Assistance 1=Total Assistance 5=Supervision or Setup 2=Maximal Assistance 6=Modified [place] 3=Moderate Assistance 7=Complete IndependenceIRFPAI Quality Coding Scale 6 Independent with activity with or without an assistive device 5 Patient requires set up or clean up by helper. Patient completes activity by themselves 4 Supervision or touching assist (CGA). [place] provide cues , steadying assist 3 The helper provides less than half the effort to complete the activity 2 The helper provides more than half the effort to complete the activity 1 Dependent. The helper does all the effort to complete an activity 7 Patient refused to complete or attempt activity 9 The patient did not perform the activity before the current illness or injury 88 Not attempted due to Medical conditions or safety concerns Transfers (B, C, W/C) (FIM): 5 Scootin Sit to/from Stand: 5 Gait Training Gait (FIM): 4 Distance (FIM): 3=150 ft Distance: 150' Gait Level of Assist: 4 Gait Persons Needed: 1 Gait Assistive Device: FWW slow, steady gait sequence Assessment Patient will dismiss to home on this date at [facility] with gross motor skills. PT Short Term Goals Short Term Goals Time Frame: Apr 17, 2017 Transfers (B,C,W/C) (FIM): 5 Gait (FIM): 2 Distance (FIM): 3=150 ft Gait Distance Comment: 100' Gait Level of Assist: 5 Gait Assistive Device: FWW PT Plan Treatment/Plan Treatment Plan: Discontinue PT Treatment Plan: Bed Mobility, Education, Functional Activity [place], Functional Strength, Gait, Safety, Therapeutic Exercise, Transfers Treatment Duration: Apr 17, 2017 Frequency: 6 times per week Estimated Hrs Per Day: .25 hour per day (15-30min) Patient and/or Family Agrees t: Yes Time/GCodes Time In: 926 Time Out: 941 Total Billed Treatment Time: 15 Total Billed Treatment 1 visit FA 15 min G Codes Necessary: No LIA CARBALLO PT Apr 13, 2017 10:17
--- NOTE | 2017-04-13 11:06 | Discharge Summary ---
Diagnosis/Chief Complaint Date of Admission Apr 09, 2017 at 1:00 pm Date of Discharge APRIL 13, 2017 Admission Diagnosis Admission Diagnosis severe sepsis Right lower and middle lobe pneumonia Leukocytosis Tachycardia Hypoxia requiring increased oxygen supplementation nausea, vomiting, diarrhea History of C. difficile Steatohepatitis COPD Hypertension Anxiety Discharge Diagnosis AT DISCHARGE: Patient has completed 5 days of azithromycin Will go home on 5 days of cefpodoxime to complete 10 day cephalosporin course ( 5 day sof cefepime) Home health arranged: will need PT, OT, and nursing services -continue supplemental oxygen as needed -Start metoprolol 12.5mg BID for HR control as an outpatient; has doen well inpatient. -Prolonged steroid taper due to existing lung disease Diagnosis/Problems: (1) Fever Qualifiers: Qualified Codes: R50.9 - Fever, unspecified Assessment & Plan: resolved (2) Abdominal pain Qualifiers: Qualified Codes: R10.84 - Generalized abdominal pain Assessment & Plan: -CT shows steatohepatitis -elevated bilirubin -hx of c-diff, reported diarrhea, will send sample for testing when available (3) Altered mental status Qualifiers: Assessment & Plan: -hx of stroke, but family reports more confused than normal on admission, appears to have returned to baseline today (4) Leukocytosis Qualifiers: Qualified Codes: D72.829 - Elevated white blood cell count, unspecified Assessment & Plan: recheck CBC in a.m. (5) Diarrhea Qualifiers: Qualified Codes: R19.7 - Diarrhea, unspecified Assessment & Plan: -hx of c-diff, will send stool sample when available (6) Nausea & vomiting Qualifiers: Qualified Codes: R11.2 - Nausea with vomiting, unspecified Assessment & Plan: resolved (7) Cough Assessment & Plan: -add mucinex to help thin secretions -continue nebs as before (8) Sepsis Qualifiers: Qualified Codes: A41.9 - Sepsis, unspecified organism Assessment & Plan: -will send sputum sample if able to obtain -blood cultures pending -received 1 dose Zosyn and emergency department, will started on cefepime and azithromycin -UA shows no evidence of infection -IV steroids 4 doses -repeat labs in AM -fluid resuscitation with NS per protocol, levophed if needed per protocol (9) Pneumonia involving right lung Qualifiers: Qualified Codes: J18.9 - Pneumonia, unspecified organism Assessment & Plan: -right middle and lower lobe involvement -abx as above -will send sputum sample if able to obtain, however pt has already been started on abx so may not have any growth from sample -steroids, nebs PRN -flu test negative -BiPAP if needed to maintain sats or decreased work of breathing; start with 12/ 8 and titrate as needed for comfort (10) Anemia Qualifiers: Qualified Codes: D64.9 - Anemia, unspecified (11) Hypokalemia Assessment & Plan: replace per protocol, recheck in AM (12) Hyperchloremia Chief Complaint/HPI Chief Complaint/HPI Lona Coburn is a 66-year-old female who presented to the emergency department earlier today with complaints of fever, chills, nausea, vomiting, diarrhea, and abdominal pain since yesterday night. She was found to have a white count of 36.3 as well as a fever of 101.3 upon arrival. Patient had a chest x-ray which demonstrated a right sided pneumonia. Due to her complaints of abdominal pain as well as her pneumonia she had a CT of her chest abdomen and pelvis which demonstrated a right middle and lower lobe pneumonia as well as steatohepatitis. The patient wears 2 L of oxygen at baseline due to COPD, and upon arrival to the ED was found to have an O2 saturation of 90 percent on her baseline oxygen requirement. She was placed on 4 L nasal cannula and her sats have been 93 percent since that time. In addition she received a 1 hour albuterol nebulizer treatment in the emergency department and per report had improvement in her work of breathing as well as her wheezing. Based on the patient's severity of symptoms, she was admitted to the ICU for further monitoring and care. The patient has some dementia at baseline, however per report from her son she is more confused than normal. Discharge Summary-Simple/Stand Procedures left subclavian CVL placement per Dr. Padron Consultations Dr. Padron, General Surgery Discharge Physical Examination Allergies: Coded Allergies: levofloxacin (Verified Allergy, Severe, C-DIFF, 12/17/16) ceftriaxone (Verified Allergy, Unknown, 12/17/16) Vitals & I&Os Vital Sign - Last 12Hours Date Time Temp Pulse Resp B/P (MAP) Pulse Ox O2 Delivery O2 Flow Rate FiO2 04/13/17 08:49 96.9 67 16 137/71 94 Nasal Cannula 2.00 04/12/17 10:48 4 General Appearance: Alert, Oriented X3, Cooperative, No Acute Distress Respiratory: Clear to Auscultation, Normal Air Movement Cardiovascular: Regular Rate, Normal S1, Normal S2, No Murmurs, Gallops, Rubs Abdominal: Normal Bowel Sounds, Soft, No Tenderness, No Hepatosplenomegaly, No Masses Extremities: No Clubbing, No Cyanosis, No Edema Psych/Mental Status: Mental Status NL, Mood NL Hospital Course See final discharge diagnosis. Labs Laboratory Tests Test 04/10/17 13:26 04/10/17 19:55 04/11/17 04:25 04/11/17 15:20 Range/Units Glucometer 139 H 338 H 139 H 70-110 MG/DL White Blood Count 28.2 H 4.3-11.0 10^3/uL Red Blood Count 3.32 L 4.35-5.85 10^6/uL Hemoglobin 9.9 L 11.5-16.0 G/DL Hematocrit 31 L 35-52 % Mean Corpuscular Volume 93 80-99 FL Mean Corpuscular Hemoglobin 30 25-34 PG Mean Corpuscular Hemoglobin Concent 32 32-36 G/DL Red Cell Distribution Width 15.4 H 10.0-14.5 % Platelet Count 263 130-400 10^3/uL Mean Platelet Volume 10.4 7.4-10.4 FL Neutrophils (%) (Auto) 88 H 42-75 % Lymphocytes (%) (Auto) 6 L 12-44 % Monocytes (%) (Auto) 5 0-12 % Eosinophils (%) (Auto) 0 0-10 % Basophils (%) (Auto) 0 0-10 % Neutrophils # (Auto) 24.8 H 1.8-7.8 X 10^3 Lymphocytes # (Auto) 1.8 1.0-4.0 X 10^3 Monocytes # (Auto) 1.5 H 0.0-1.0 X 10^3 Eosinophils # (Auto) 0.0 0.0-0.3 10^3/uL Basophils # (Auto) 0.0 0.0-0.1 10^3/uL Prothrombin Time 13.3 12.2-14.7 SEC INR Comment 1.0 0.8-1.4 Activated Partial Thromboplast Time 30 24-35 SEC Sodium Level 144 135-145 MMOL/L Potassium Level 3.3 L 3.6-5.0 MMOL/L Chloride Level 113 H 98-107 MMOL/L Carbon Dioxide Level 22 21-32 MMOL/L Anion Gap 9 5-14 MMOL/L Blood Urea Nitrogen 19 H 7-18 MG/DL Creatinine 0.75 0.60-1.30 MG/DL Estimat Glomerular Filtration Rate > 60 BUN/Creatinine Ratio 25 Glucose Level 133 H 70-105 MG/DL Calcium Level 8.8 8.5-10.1 MG/DL Phosphorus Level 2.4 2.3-4.7 MG/DL Magnesium Level 1.8 1.8-2.4 MG/DL Total Bilirubin 0.7 0.1-1.0 MG/DL Aspartate Amino Transf (AST/SGOT) 17 5-34 U/L Alanine Aminotransferase (ALT/SGPT) 22 0-55 U/L Alkaline Phosphatase 59 40-136 U/L Total Protein 6.9 6.4-8.2 GM/DL Albumin 3.2 3.2-4.5 GM/DL Test 04/11/17 21:00 04/11/17 22:55 04/12/17 04:50 04/12/17 12:15 Range/Units Glucometer 94 121 H 70-110 MG/DL Blood Gas Puncture Site L RAD Blood Gas Patient Temperature 99.5 Arterial Blood pH 7.33 *L 7.37-7.43 Arterial Blood Partial Pressure CO2 47 H 35-45 MMHG Arterial Blood Partial Pressure O2 60 L 79-93 MMHG Arterial Blood HCO3 24 23-27 MMOL/L Arterial Blood Total CO2 24.9 21.0-31.0 MMOL/L Arterial Blood Oxygen Saturation 91 L 94-100 % Arterial Blood Base Excess -1.5 -2.5-2.5 MMOL/L Jerry Test YES-POS Blood Gas Ventilator Setting NO Blood Gas Inspired Oxygen 4L White Blood Count 25.2 H 4.3-11.0 10^3/uL Red Blood Count 3.49 L 4.35-5.85 10^6/uL Hemoglobin 10.4 L 11.5-16.0 G/DL Hematocrit 33 L 35-52 % Mean Corpuscular Volume 93 80-99 FL Mean Corpuscular Hemoglobin 30 25-34 PG Mean Corpuscular Hemoglobin Concent 32 32-36 G/DL Red Cell Distribution Width 15.6 H 10.0-14.5 % Platelet Count 275 130-400 10^3/uL Mean Platelet Volume 10.3 7.4-10.4 FL Neutrophils (%) (Auto) 77 H 42-75 % Lymphocytes (%) (Auto) 17 12-44 % Monocytes (%) (Auto) 6 0-12 % Eosinophils (%) (Auto) 0 0-10 % Basophils (%) (Auto) 0 0-10 % Neutrophils # (Auto) 19.3 H 1.8-7.8 X 10^3 Lymphocytes # (Auto) 4.4 H 1.0-4.0 X 10^3 Monocytes # (Auto) 1.5 H 0.0-1.0 X 10^3 Eosinophils # (Auto) 0.0 0.0-0.3 10^3/uL Basophils # (Auto) 0.0 0.0-0.1 10^3/uL Prothrombin Time 13.3 12.2-14.7 SEC INR Comment 1.0 0.8-1.4 Activated Partial Thromboplast Time 29 24-35 SEC Sodium Level 143 135-145 MMOL/L Potassium Level 3.3 L 3.6-5.0 MMOL/L Chloride Level 107 98-107 MMOL/L Carbon Dioxide Level 27 21-32 MMOL/L Anion Gap 9 5-14 MMOL/L Blood Urea Nitrogen 20 H 7-18 MG/DL Creatinine 0.76 0.60-1.30 MG/DL Estimat Glomerular Filtration Rate > 60 BUN/Creatinine Ratio 26 Glucose Level 94 70-105 MG/DL Calcium Level 9.0 8.5-10.1 MG/DL Phosphorus Level 2.3 2.3-4.7 MG/DL Magnesium Level 1.3 L 1.8-2.4 MG/DL Total Bilirubin 1.4 H 0.1-1.0 MG/DL Aspartate Amino Transf (AST/SGOT) 19 5-34 U/L Alanine Aminotransferase (ALT/SGPT) 23 0-55 U/L Alkaline Phosphatase 64 40-136 U/L Total Protein 7.1 6.4-8.2 GM/DL Albumin 3.3 3.2-4.5 GM/DL Test 04/12/17 17:10 04/12/17 21:45 04/12/17 22:47 04/13/17 05:30 Range/Units Glucometer 225 H 244 H 183 H 70-110 MG/DL White Blood Count 13.5 H 4.3-11.0 10^3/uL Red Blood Count 3.25 L 4.35-5.85 10^6/uL Hemoglobin 9.6 L 11.5-16.0 G/DL Hematocrit 30 L 35-52 % Mean Corpuscular Volume 92 80-99 FL Mean Corpuscular Hemoglobin 30 25-34 PG Mean Corpuscular Hemoglobin Concent 32 32-36 G/DL Red Cell Distribution Width 15.1 H 10.0-14.5 % Platelet Count 264 130-400 10^3/uL Mean Platelet Volume 11.0 H 7.4-10.4 FL Neutrophils (%) (Auto) 67 42-75 % Lymphocytes (%) (Auto) 26 12-44 % Monocytes (%) (Auto) 7 0-12 % Eosinophils (%) (Auto) 0 0-10 % Basophils (%) (Auto) 0 0-10 % Neutrophils # (Auto) 9.0 H 1.8-7.8 X 10^3 Lymphocytes # (Auto) 3.5 1.0-4.0 X 10^3 Monocytes # (Auto) 1.0 0.0-1.0 X 10^3 Eosinophils # (Auto) 0.0 0.0-0.3 10^3/uL Basophils # (Auto) 0.0 0.0-0.1 10^3/uL Prothrombin Time 12.8 12.2-14.7 SEC INR Comment 1.0 0.8-1.4 Activated Partial Thromboplast Time 31 24-35 SEC Sodium Level 144 135-145 MMOL/L Potassium Level 3.5 L 3.6-5.0 MMOL/L Chloride Level 106 98-107 MMOL/L Carbon Dioxide Level 28 21-32 MMOL/L Anion Gap 10 5-14 MMOL/L Blood Urea Nitrogen 17 7-18 MG/DL Creatinine 0.65 0.60-1.30 MG/DL Estimat Glomerular Filtration Rate > 60 BUN/Creatinine Ratio 26 Glucose Level 95 70-105 MG/DL Calcium Level 8.8 8.5-10.1 MG/DL Phosphorus Level 2.8 2.3-4.7 MG/DL Magnesium Level 1.9 1.8-2.4 MG/DL Total Bilirubin 0.9 0.1-1.0 MG/DL Aspartate Amino Transf (AST/SGOT) 13 5-34 U/L Alanine Aminotransferase (ALT/SGPT) 21 0-55 U/L Alkaline Phosphatase 60 40-136 U/L Total Protein 6.6 6.4-8.2 GM/DL Albumin 3.0 L 3.2-4.5 GM/DL Test 04/13/17 05:38 04/13/17 11:07 Range/Units Glucometer 85 110 70-110 MG/DL Radiology Reviewed CT Chest/Abd/Pelvis: CT chest: Patchy areas of consolidation mostly involving the right lung are concerning for pneumonia. CT abdomen and pelvis: Hepatic steatosis. No urinary tract stones or hydronephrosis. CXR: Right perihilar and basilar patchy infiltrates concerning for pneumonia. There is minimal background vascular congestion. Discharge Instructions to patient/family Please see electronic discharge instructions given to patient. Discharge Medications Reviewed and agree with Discharge Medication list on patient's Discharge Instruction sheet Clinical Quality Measures DVT/VTE Risk/Contraindication: Risk Factor Score Per Nursin RFS Level Per Nursing on Admit: 4+=Very High Copy Copies To 1: JAMES GRAVES APRN, MD Apr 13, 2017 11:06 am
[2017-04-13] MEDS ORDERED: CEFP200T2 PO (11:13)
[2017-04-13] MEDS ORDERED: PRED10TA22 PO (11:13)
[2017-04-13] MEDS ORDERED: METO-333 PO (11:13)
[2017-04-13] MEDS ORDERED: AZIT250T5 PO (11:13)
--- NOTE | 2017-04-13 11:18 | D/C HH Face to Face Order ---
D/C Face to Face Orders Instructions for Patient Patient Instructions/FollowUp: APRIL 20 AT 2PM WITH DAPHNE Physician to follow Patient: MADELIN/EVELYN Discharge Diet for Home: ADA Diet, Dysphagia Patient Problems: SEVERE SEPSIS RIGHT SIDED PNEUMONIA CONFUSION DEBILITATION Goals for Patient: INCREASE ABILITY TO PERFORM ADL CONTROL OF BLOOD SUGARS GOOD PULMONARY TOILETING Patient Data-Allergies,Ht & Wt Patient Allergies: Coded Allergies: levofloxacin (Verified Allergy, Severe, C-DIFF, 12/17/16) ceftriaxone (Verified Allergy, Unknown, 12/17/16) Height (Feet): 5 Height (Inches): 2.00 Weight (Pounds): 206 Weight (Ounces): 8.0 Home Health Need/Face to Face Date of Face to Face: Apr 13, 2017 Clinical Findings: Generalized weakness and fatigue, Shortness of breath, Unsteady gait I have seen Pt [id number]: Yes Discharged To: Home Diagnosis/Conditions: SEVERE SEPSIS RIGHT SIDED PNEUMONIA CONFUSION DEBILITATION Problems/Diagnosis/Condition: Patient is Homebound due to: CognItive deficits, Anai fall risk due to instabilty, Shortness of breath/distress Homebound Status Due to the above stated illness, injury or surgical procedure (medical condition or diagnosis) and associated clinical findings, the patient is homebound because of his/her inability to leave home except with aid of a supportive device and/or person AND leaving the home requires a considerable and taxing effort or is medically contraindicated. Pt req the following assistanc: Aid of another person Home Health Nursing Orders Home Health Services Order: Nursing Services, Gear Cutting Machine Set Up Operator-Evaluate & Treat, Physical Therapy-Evaluate & Treat Home Health Infusion Therapy Line Start Date: Apr 09, 2017 Line Start Time: 1530 Line Type: NONE Site Location: NONE Therapy Orders Therapy Orders: OT (must have SN or PT order), Physical Therapy Therapy Specific Orders: Eval assistive deivces, Teach strategies/cognitive deficits, Teach enviro modifications/safety Certify Stmt I certify that this patient is under my care and that I, a nurse practitioner or a physician; a chiropractor assistant working with me, had a face to face encounter that - meets the physician face to face encounter requirements with this patient as dated. Copy Copies To 1: JAMES GRAVES APRN, MD Apr 13, 2017 11:18 am
[2017-04-13 12:00] VITALS: BP 128/75
[2017-04-13] MEDS ORDERED: INFLUENZA TRIvalent 2017-2018 0.5 ML/45 MCG SYR IM ONE (13:06)
[2017-04-15] MEDS ORDERED: predniSONE 20 MG TAB PO SCH (07:00)
== END 2017-04-13 14:15 | DRG 871 ==
LOC: EDUNIT# 11:43 → ER 11:45 → ICU 13:00 → 4TH 04-11 13:25
PROVIDERS: ADMIT Family Medicine; ATTEND Family Medicine
PROC: 02HV33Z Insertion of Infusion Device into Superior Vena Cava, Percutaneous Approach (ICD-10-PCS; principal; 2017-04-09)
DX: A41.9 Sepsis, unspecified organism (principal); R65.20 Severe sepsis without septic shock; J18.9 Pneumonia, unspecified organism; J43.9 Emphysema, unspecified; K75.81 Nonalcoholic steatohepatitis (NASH); I69.351 Hemiplegia and hemiparesis following cerebral infarction affecting right dominant side; I69.322 Dysarthria following cerebral infarction; I69.391 Dysphagia following cerebral infarction; Z23 Encounter for immunization; I10 Essential (primary) hypertension; R19.7 Diarrhea, unspecified; F41.9 Anxiety disorder, unspecified; I70.203 Unspecified atherosclerosis of native arteries of extremities, bilateral legs; F32.9 Major depressive disorder, single episode, unspecified; E78.00 Pure hypercholesterolemia, unspecified; D64.9 Anemia, unspecified; G47.00 Insomnia, unspecified; F03.90 Unspecified dementia, unspecified severity, without behavioral disturbance, psychotic disturbance, mood disturbance, and anxiety; M06.9 Rheumatoid arthritis, unspecified; K21.9 Gastro-esophageal reflux disease without esophagitis; M19.91 Primary osteoarthritis, unspecified site; H93.13 Tinnitus, bilateral; J30.2 Other seasonal allergic rhinitis; Z99.81 Dependence on supplemental oxygen; Z95.820 Peripheral vascular angioplasty status with implants and grafts; Z87.891 Personal history of nicotine dependence; Z96.641 Presence of right artificial hip joint; Z96.651 Presence of right artificial knee joint; Z89.432 Acquired absence of left foot
CPT/HCPCS: 36415; 51702; 71010; 71250; 74176; 80048; 80053; 81000; 82150; 82805; 82962; 83605; 83690; 83735; 84100; 85007; 85025; 85027; 85610; 85730; 87040; 87045; 87046; 87081; 87324; 87449; 87804; 93005; 93041; 94640; 94644; 94660; 94664; 94760; 96361; 96365; 96375

== ENCOUNTER → 2017-10-14 | Outpatient (CLI) | payer MEDICARE, MEDICAID ==
[~2017-10-14] MED LIST changes: +AZIT250T12 PO; +CEFP200T2 PO; +IOHEXOL 350 MG/ML 100 ML (OMNIPAQUE 350) VIAL IV ONE; +METO-333 PO; +NAPR-1071 PO; +NAPR-915 PO; -NAPR500T PO; -NAPR500T3 PO; +NS 250 ML (IVPB) BAG IV ONE; -OMEP10SU PO; +OMEP10SU2 PO; +OXYC-471 PO
--- NOTE | 2017-10-14 14:15 | Diagnostic Imaging Report ---
PROCEDURE: CT abdomen and pelvis with and without contrast. TECHNIQUE: Precontrast acquisitions were acquired through the abdomen and pelvis. Multiple contiguous axial images were obtained through the abdomen and pelvis after the administration of intravenous contrast. INDICATION: Left-sided breast and abdomen pain. FINDINGS: The previous chest, abdomen, and pelvis exam performed on 04/09/2017 noted fatty metamorphosis of the liver but failed to show any sign of an acute abnormality of the abdomen or pelvis. On this exam, the appearance of liver is unchanged. The liver does seem to be of lower density than usual and this does suggest fatty metamorphosis. There is no focal mass involving the liver and the biliary tree does not appear to be abnormally dilated. The spleen, pancreas, adrenals, kidneys, inferior vena cava, and gallbladder are unremarkable for an acute abnormality. The stomach is not well distended and consequently difficult to assess. The aorta is not aneurysmally dilated. In fact, the aorta is small. Furthermore, there is dense atherosclerotic calcification involving the distal abdominal aorta and the origin of both common iliac arteries. If there is clinical concern regarding diminished arterial blood flow to the lower extremities, then CTA of the aorta would be recommended. There is no pelvic mass or free fluid collection noted. The pelvic contents are partially obscured however due to streak artifact related to the total hip prosthesis on the right. The uterus and urinary bladder are grossly unremarkable. The appendix was not well visualized but there are no indirect signs of acute appendicitis. There is diverticulosis of the sigmoid and descending colon but there is no evidence for acute diverticulitis. There does appear to be a fair amount of fecal material throughout the transverse and ascending colon. The lung bases are generally clear. There is mild scar formation in the left lower lobe. This is similar to the prior exam. The bone windows show no evidence for a fracture or for a destructive lesion. There is fairly severe degenerative disc and bony disease at T12-L1 and L5-S1. IMPRESSION: 1. There is no acute abnormality of the abdomen or pelvis. 2. The appearance of the liver does suggest fatty metamorphosis. 3. There is dense atherosclerotic plaque involving the distal aorta and the origin of the common iliac arteries. This could result in diminished arterial blood flow to the lower extremities. Recommendations as above. 4. There is diverticulosis of the sigmoid and descending colon but there is no sign of acute diverticulitis. Dictated by: Dictated on workstation # [id number]
== END ==
LOC: RAD 11:51
PROVIDERS: ATTEND Nurse Practitioner Community Health
DX: I70.0 Atherosclerosis of aorta (principal); I70.203 Unspecified atherosclerosis of native arteries of extremities, bilateral legs; K57.30 Diverticulosis of large intestine without perforation or abscess without bleeding
CPT/HCPCS: 74178

== ENCOUNTER 2017-12-03 13:14 | Emergency (ER) | payer MEDICARE, MEDICAID ==
[~2017-12-03] VITALS: Ht 165.1 cm; Wt 90.7 kg
[~2017-12-03 13:14] MED LIST changes: -IOHEXOL 350 MG/ML 100 ML (OMNIPAQUE 350) VIAL IV ONE; -NS 250 ML (IVPB) BAG IV ONE
[2017-12-03 13:30] LABS: BASOPHILS # (AUTO) 0.1 10^3/uL (0.0-0.1); BASOPHILS % (AUTO) 1 % (0-10); EOSINOPHILS # (AUTO) 0.4 10^3/uL (0.0-0.3); EOSINOPHILS % (AUTO) 3 % (0-10); HEMATOCRIT 47 % (35-52); HEMOGLOBIN 15.7 G/DL (11.5-16.0); LYMPHOCYTES # (AUTO) 6.1 X 10^3 (1.0-4.0); LYMPHOCYTES % (AUTO) 44 % (12-44); MEAN CORPUSCULAR HEMOGLOBIN 31 PG (25-34); MEAN CORPUSCULAR HGB CONC 34 G/DL (32-36); MEAN CORPUSCULAR VOLUME 92 FL (80-99); MEAN PLATELET VOLUME 10.2 FL (7.4-10.4); MONOCYTES # (AUTO) 1.6 X 10^3 (0.0-1.0); MONOCYTES % (AUTO) 11 % (0-12); NEUTROPHILS # (AUTO) 5.8 X 10^3 (1.8-7.8); NEUTROPHILS % (AUTO) 42 % (42-75); PLATELET COUNT 376 10^3/uL (130-400); RED BLOOD COUNT 5.07 10^6/uL (4.35-5.85); RED CELL DISTRIBUTION WIDTH 14.7 % (10.0-14.5); WHITE BLOOD COUNT 13.9 10^3/uL (4.3-11.0)
[2017-12-03] MEDS ORDERED: VERAPAMIL 5 MG/2 ML (CALAN) VIAL IV ONE (13:30)
--- NOTE | 2017-12-03 13:35 | ED Cardiac General ---
History of Present Illness General Chief Complaint: Cardiac/General Problems Stated Complaint: SOB Source: patient Exam Limitations: no limitations History of Present Illness Date Seen by Provider: December 03, 2017 Time Seen by Provider: 13:33 Initial Comments to ER per private vehicle with reports of shortness of breath. This began at 10 AM this morning while at rest. She denies chest pain. She does have a history of shortness of breath. She also has a history of atrial fibrillation and is on anticoagulant for that. 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 Timing/Duration: constant Severity: moderate Prior CP/Workup: other NTG SL ELEMENT BURNER: No ASA po ELEMENT BURNER: No Associated Systoms: No Chest Pain Allergies and Home Medications Allergies Coded Allergies: levofloxacin (Verified Allergy, Severe, C-DIFF, 12/17/16) ceftriaxone (Verified Allergy, Unknown, 12/17/16) Home Medications Albuterol Sulfate 2.5 Mg/3 Ml Vial.neb, 2.5 MG NEB Q6H PRN for SHORTNESS OF BREATH, (Reported) Alprazolam 0.5 Mg Tablet, 0.5 MG PO HS, (Reported) Ascorbate Calcium 500 Mg Tablet, 1,000 MG PO DAILY, (Reported) Aspirin 81 Mg Tablet.dr, 81 MG PO HS, (Reported) Azithromycin 250 Mg Tablet, 250 MG PO DAILY Prescribed by: JAMES MENDEZ on 04/13/17 1113 Budesonide/Formoterol Fumarate 10.2 Gm Hfa.aer.ad, 2 PUFF PO BID, (Reported) Cefpodoxime Proxetil 200 Mg Tablet, 200 MG PO BID Prescribed by: JAMES MENDEZ on 04/13/17 1113 Cetirizine HCl 10 Mg Tablet, 10 MG PO DAILY, (Reported) Cholecalciferol (Vitamin D3) 1,000 Unit Tablet, 1,000 UNIT PO DAILY, (Reported) Diclofenac Sodium 100 Gm Gel..gram., TP BID, (Reported) Doxepin HCl 25 Mg Capsule, 25 MG PO HS, (Reported) Esomeprazole Magnesium 40 Mg Cap, 40 MG PO DAILY, (Reported) Etanercept 50 Mg/1 Ml Syringe, 50 MG INJ Tu, (Reported) Gabapentin 300 Mg Capsule, 600 MG PO TID, (Reported) TAKES 2 (300MG) CAPSULES L.acidoph & Paracasei,B.lactis 1 Each Capsule, 1 CAP PO BID, (Reported) Metoprolol Tartrate 25 Mg Tablet, 12.5 MG PO BID Prescribed by: JAMES MENDEZ on 04/13/17 1113 Montelukast Sodium 10 Mg Tablet, 10 MG PO HS, (Reported) Multivitamin 1 Each Tab.chew, 2 TAB.CHEW PO DAILY, (Reported) Oxycodone HCl/Acetaminophen 1 Each Tablet, 1 TAB PO TID PRN for PAIN-MODERATE, ( Reported) Pravastatin Sodium 10 Mg Tablet, 10 MG PO HS, (Reported) Prednisone 10 Mg Tab.ds.pk, 10 MG PO DAILY Take 6 tabs(60mg)daily,decrease by 1 tab(10MG)daily. Prescribed by: JAMES MENDEZ on 04/13/17 1113 Ranitidine HCl 150 Mg Tablet, 150 MG PO BID, (Reported) Sertraline HCl 50 Mg Tablet, 50 MG PO DAILY, (Reported) Tiotropium [place] 4 Gm Mist.inhal, 2.5 MCG PO DAILY, (Reported) Verapamil HCl 120 Mg Tablet.er, 120 MG PO DAILY, (Reported) Patient Home Medication List Home Medication List Reviewed: Yes Review of Systems Constitutional: see HPI EENTM: No Symptoms Reported Respiratory: See HPI; Denies Cough; Shortness of Air, SOA With Exertion, SOA at Rest Cardiovascular: See HPI; Denies Chest Pain, Denies Edema, Denies Irregular Heart Rate, Denies Lightheadedness Gastrointestinal: See HPI Genitourinary: No Symptoms Reported Musculoskeletal: no symptoms reported Skin: no symptoms reported Psychiatric/Neurological: No Symptoms Reported Endocrine: No Symptoms Reported Hematologic/Lymphatic: No Symptoms Reported Past Mdxmaob-Kqszop-Ldwsgu Hx Patient Social History Type Used: Cigarettes Former Smoker, Quit: Dec 11, 2014 2nd Hand Smoke Exposure: No Recent Hopitalizations: No Immunizations Up To Date Tetanus Booster (TDap): Unknown PED Vaccines UTD: Yes Date of Pneumonia Vaccine: Aug 05, 2013 Date of Influenza Vaccine: Apr 13, 2017 Seasonal Allergies Seasonal Allergies: Yes Past Medical History Surgeries: Yes Joint Replacement, Orthopedic, Vascular Surgery Respiratory: Yes (O2 2L NC AT NIGHT AND PRN) Pneumonia, Chronic Bronchitis, COPD, Emphysema Currently Using CPAP: No Currently Using BIPAP: No Cardiac: Yes (CAROTID DISEASE--COMPLETE OCCLUSION OF LEFT CAROTID) High Cholesterol, Hypertension, Peripheral Vascular Neurological: Yes (DYSPHAGIA, DYSARTHRIA; RIGHT SIDE WEAKNESS--POST CVA) Dementia, Stroke Reproductive Disorders: No 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 ) Arthritis, Rheumatoid Arthritis Endocrine: No HEENT: Yes (GLASSES) Dysphagia, Tinnitis Loss of Vision: Bilateral Hearing Impairment: Denies Cancer: No Psychosocial: Yes Sleep Difficulties, Anxiety, Depression Integumentary: No Blood Disorders: No Adverse Reaction/Blood Tranf: No Family Medical History Cancer 09 SISTER Family history: Arthritis 09 BROTHER 09 SISTER Family history: Cardiovascular disease 09 SISTER Family history: Thyroid disorder 09 SISTER Malignant neoplasm of lung 09 SISTER Heart Disease Physical Exam Vital Signs Vital Signs - First Documented 12/03/17 13:15 Temp 98.0 Pulse 152 Resp 20 B/P (MAP) 109/81 (90) Pulse Ox 93 O2 Delivery Room Air Capillary Refill : General Appearance: No Apparent Distress, WD/WN HEENT: PERRL/EOMI, TMs Normal Neck: Full Range of Motion, Normal Inspection Respiratory: No Accessory Muscle Use, No Respiratory Distress Cardiovascular: Regular Rate, Rhythm, No Edema, Normal Peripheral Pulses Gastrointestinal: Normal Bowel Sounds, Non Tender, Soft Extremity: Normal Capillary Refill, Normal Inspection Neurologic/Psychiatric: Alert, Oriented x3, No Motor/Sensory Deficits Skin: Normal Color, Warm/Dry Progress/Results/Core Measures Results/Orders Lab Results Laboratory Tests Test 12/03/17 13:20 Range/Units White Blood Count 13.9 H 4.3-11.0 10^3/uL Red Blood Count 5.07 4.35-5.85 10^6/uL Hemoglobin 15.7 11.5-16.0 G/DL Hematocrit 47 35-52 % Mean Corpuscular Volume 92 80-99 FL Mean Corpuscular Hemoglobin 31 25-34 PG Mean Corpuscular Hemoglobin Concent 34 32-36 G/DL Red Cell Distribution Width 14.7 H 10.0-14.5 % Platelet Count 376 130-400 10^3/uL Mean Platelet Volume 10.2 7.4-10.4 FL Neutrophils (%) (Auto) 42 42-75 % Lymphocytes (%) (Auto) 44 12-44 % Monocytes (%) (Auto) 11 0-12 % Eosinophils (%) (Auto) 3 0-10 % Basophils (%) (Auto) 1 0-10 % Neutrophils # (Auto) 5.8 1.8-7.8 X 10^3 Lymphocytes # (Auto) 6.1 H 1.0-4.0 X 10^3 Monocytes # (Auto) 1.6 H 0.0-1.0 X 10^3 Eosinophils # (Auto) 0.4 H 0.0-0.3 10^3/uL Basophils # (Auto) 0.1 0.0-0.1 10^3/uL Prothrombin Time 13.1 12.2-14.7 SEC INR Comment 1.0 0.8-1.4 Activated Partial Thromboplast Time 31 24-35 SEC Sodium Level 141 135-145 MMOL/L Potassium Level 4.9 3.6-5.0 MMOL/L Chloride Level 107 98-107 MMOL/L Carbon Dioxide Level 23 21-32 MMOL/L Anion Gap 11 5-14 MMOL/L Blood Urea Nitrogen 13 7-18 MG/DL Creatinine 0.84 0.60-1.30 MG/DL Estimat Glomerular Filtration Rate > 60 BUN/Creatinine Ratio 15 Glucose Level 113 H 70-105 MG/DL Calcium Level 9.4 8.5-10.1 MG/DL Magnesium Level 2.0 1.8-2.4 MG/DL Total Bilirubin 0.7 0.1-1.0 MG/DL Aspartate Amino Transf (AST/SGOT) 34 5-34 U/L Alanine Aminotransferase (ALT/SGPT) 28 0-55 U/L Alkaline Phosphatase 67 40-136 U/L Myoglobin 117.0 H 10.0-92.0 NG/ML Troponin I < 0.30 <0.30 NG/ML B-Type Natriuretic Peptide 116.1 H <100.0 PG/ML Total Protein 8.2 6.4-8.2 GM/DL Albumin 4.0 3.2-4.5 GM/DL My Orders Orders - PALOMO SALAZAR APRN Ns Iv 1000 Ml (Sodium Chloride 0.9%) (12/03/17 13:30) Verapamil Injection ([place]an Injection) (12/03/17 13:30) D5w 100 Ml Ivpb (De... W/Diltiazem Injec (12/03/17 13:45) Diltiazem Injection (Cardizem Injection) (12/03/17 13:45) Aspirin Chewable Tablet (Baby Aspirin Ch (12/03/17 13:45) Ekg Tracing (12/03/17 14:00) Medications Given in ED Current Medications Medications Dose Ordered Sig/Terrance Route Start Time Stop Time Status Last Admin Dose Admin Aspirin 324 mg ONCE ONCE PO 12/03/17 13:45 12/03/17 13:46 DC 12/03/17 13:43 324 MG Diltiazem HCl 10 mg ONCE ONCE IVP 12/03/17 13:45 12/03/17 13:46 DC 12/03/17 13:43 10 MG Vital Signs/I&O 12/03/17 13:15 Temp 98.0 Pulse 152 Resp 20 B/P (MAP) 109/81 (90) Pulse Ox 93 O2 Delivery Room Air Departure Communication (Admissions) 1350- Patient converted to normal sinus rhythm rate of 84 without ectopy after a 10 mg bolus of IV Cardizem.Her initial heart rate was 154 regular narrow complex without visualized P waves believed to be atrial flutter with 2- 1 block. 1417- I spoke with Dr. Fong. He recommends stopping the verapamil daily and changing to Cardizem CD 240 mg daily. 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 She has converted and her shortness of breath is gone and she is now asymptomatic. Impression Primary Impression: Supraventricular tachycardia Disposition: 01 HOME, SELF-CARE Condition: Stable Departure-Patient Inst. Decision time for Depature: 14:18 Referrals: DAPHNE YUSUF (PCP/Family) Primary Care Physician Patient Instructions: NO INSTRUCTIONS GIVEN Add. Discharge Instructions: 1. Stop the verapamil. Your new daily medication will be Cardizem CD 240 mg once daily. He will also be started on a blood thinner Eliquis 5 mg twice a day. Call Dr. Fong's office today to make an appointment to be seen tomorrow morning in the clinic.All discharge instructions reviewed with patient and/or family. Voiced understanding. Scripts Diltiazem HCl (Cardizem Cd) 240 Mg Cap.er.24h 240 MG PO DAILY, #30 CAP Prov: PALOMO SALAZAR APRN 12/03/17 Apixaban (Eliquis) 5 Mg Tablet 5 MG PO BID, #20 TAB Prov: PALOMO SALAZAR APRN 12/03/17 PALOMO SALAZAR APRN December 03, 2017 13:35
[2017-12-03 13:43] LABS: PROTHROMBIN TIME PATIENT 13.1 SEC (12.2-14.7)
[2017-12-03] MEDS: NS IV 1000 ML 1,000 ML IV SCH (13:43)
[2017-12-03] MEDS: ASPIRIN 81 MG CHEW (CHILDREN'S ASA) PO ONE (13:43)
[2017-12-03] MEDS: DILTIAZEM 25 MG/5 ML INJ (CARDIZEM) VIAL IVP ONE (13:43)
--- NOTE | 2017-12-03 13:49 | Diagnostic Imaging Report ---
INDICATION: Dyspnea. COMPARISON: 04/11/2017. FINDINGS: Single frontal view of the chest demonstrates normal heart size and pulmonary vascularity. The lungs are well aerated and clear. No large pleural effusion or pneumothorax is seen. The visualized osseous structures show no acute abnormalities. Note is made of calcified aortic atherosclerosis. IMPRESSION: 1. No acute cardiopulmonary process. Dictated by: Dictated on workstation # [id number]
[2017-12-03 13:55] LABS: ALANINE AMINOTRANSFERASE 28 U/L (0-55); ALKALINE PHOSPHATASE 67 U/L (40-136); BILIRUBIN,TOTAL 0.7 MG/DL (0.1-1.0); BUN/CREATININE RATIO 15; CALCIUM 9.4 MG/DL (8.5-10.1); CARBON DIOXIDE 23 MMOL/L (21-32); CHLORIDE 107 MMOL/L (98-107); CREATININE SERUM 0.84 MG/DL (0.60-1.30); GFR ESTIMATED > 60; GLUCOSE 113 MG/DL (70-105); POTASSIUM 4.9 MMOL/L (3.6-5.0); SODIUM 141 MMOL/L (135-145); TOTAL PROTEIN 8.2 GM/DL (6.4-8.2)
[2017-12-03] MEDS ORDERED: APIX5TAB PO ×2 (14:21→14:29)
[2017-12-03] MEDS ORDERED: DILT240C86 PO ×2 (14:21→14:29)
[2017-12-03] MEDS: DILTIAZEM 240 MG (CARDIZEM CD) CAP PO ONE ×2 (14:37→14:52)
[2017-12-03] MEDS: DILTIAZEM INJECTION 125 MG in D5W 100 ML IVPB 100 ML IV SCH (14:42)
[2017-12-03] MEDS: APIXABAN 5 MG (ELIQUIS) TABLET PO ONE (14:52)
[2017-12-03 14:53] VITALS: BP 103/64
== END 2017-12-03 14:53 | disposition home or self-care (01) ==
LOC: EDUNIT# 13:14 → ER 13:15
DX: I47.1 Supraventricular tachycardia (principal); J43.9 Emphysema, unspecified; E78.00 Pure hypercholesterolemia, unspecified; I10 Essential (primary) hypertension; I73.9 Peripheral vascular disease, unspecified; I25.10 Atherosclerotic heart disease of native coronary artery without angina pectoris; F03.90 Unspecified dementia, unspecified severity, without behavioral disturbance, psychotic disturbance, mood disturbance, and anxiety; I48.91 Unspecified atrial fibrillation; M06.9 Rheumatoid arthritis, unspecified; F41.9 Anxiety disorder, unspecified; F32.9 Major depressive disorder, single episode, unspecified; K21.9 Gastro-esophageal reflux disease without esophagitis; Z87.19 Personal history of other diseases of the digestive system; Z86.010 Personal history of colon polyps; Z80.1 Family history of malignant neoplasm of trachea, bronchus and lung; Z82.49 Family history of ischemic heart disease and other diseases of the circulatory system; Z79.51 Long term (current) use of inhaled steroids; Z79.82 Long term (current) use of aspirin; Z86.73 Personal history of transient ischemic attack (TIA), and cerebral infarction without residual deficits; Z79.52 Long term (current) use of systemic steroids; Z79.01 Long term (current) use of anticoagulants; Z87.891 Personal history of nicotine dependence; Z87.01 Personal history of pneumonia (recurrent); Z88.8 Allergy status to other drugs, medicaments and biological substances
CPT/HCPCS: 36415; 71045; 80053; 83735; 83874; 83880; 84484; 85025; 85610; 85730; 93005; 93041; 96361; 96374

== ENCOUNTER 2018-03-18 16:38 | Emergency (ER) | payer MEDICARE, MEDICAID ==
[~2018-03-18] VITALS: Ht 160 cm; Wt 81.6 kg
[~2018-03-18 16:38] MED LIST changes: +APIX5TAB PO; +DILT240C86 PO; -IPRA3AMP INH; +IPRA3AMP31 INH; -OXYC-197 PO; +OXYC1TAB87 PO
--- NOTE | 2018-03-18 17:36 | ED GI ---
General Chief Complaint: Catheter/Drain/Tube Problems Stated Complaint: PROBLEMS WITH FEEDING TUBE,BACK PAIN Nursing Triage Note: PT REPORTS SHE HAD A G-TUBE PLACED ABOUT 6 WEEKS AGO AND RECENTLY STARTED HAVING SOME TENDERNESS AROUND THE SITE AND MORE FLUID OUTPUT FROM THE TUBE. Sepsis Screen: No Definite Risk Source of Information: Patient Exam Limitations: No Limitations History of Present Illness Date Seen by Provider: Mar 18, 2018 Time Seen by Provider: 17:20 Initial Comments Here with pain around the feeding tube site. She had that placed about 6 weeks ago and has some area of tenderness on the right lateral aspect just under the holding disc. No significant drainage although it is red and tender. Also feels full or bloated. Family feels like she is not having any bowel movements. She is taking her feeds well and the feeding tube is working right. Also complains of some low back pain that is chronic. Timing/Duration: 2-3 Days, Getting Worse Severity/Quality: Mild, Moderate Location: Epigastric Radiation: No Radiation Activities at Onset: None Associated Symptoms: Back Pain; No Fever/Chills, No Nausea/Vomiting, No Weakness Allergies and Home Medications Allergies Coded Allergies: levofloxacin (Verified Allergy, Severe, C-DIFF, 12/17/16) ceftriaxone (Verified Allergy, Unknown, 12/17/16) Home Medications Albuterol Sulfate 2.5 Mg/3 Ml Vial.neb, 2.5 MG NEB Q6H PRN for SHORTNESS OF BREATH, (Reported) Alprazolam 0.5 Mg Tablet, 0.5 MG PO HS, (Reported) Apixaban 5 Mg Tablet, 5 MG PO BID . Prescribed by: PALOMO SALAZAR on 12/03/17 1429 Ascorbate Calcium 500 Mg Tablet, 1,000 MG PO DAILY, (Reported) Aspirin 81 Mg Tablet.dr, 81 MG PO HS, (Reported) Azithromycin 250 Mg Tablet, 250 MG PO DAILY Prescribed by: JAMES MENDEZ on 04/13/17 1113 Budesonide/Formoterol Fumarate 10.2 Gm Hfa.aer.ad, 2 PUFF PO BID, (Reported) Cefpodoxime Proxetil 200 Mg Tablet, 200 MG PO BID Prescribed by: JAMES MENDEZ on 04/13/17 1113 Cetirizine HCl 10 Mg Tablet, 10 MG PO DAILY, (Reported) Cholecalciferol (Vitamin D3) 1,000 Unit Tablet, 1,000 UNIT PO DAILY, (Reported) Diclofenac Sodium 100 Gm Gel..gram., TP BID, (Reported) Diltiazem HCl 240 Mg Cap.er.24h, 240 MG PO DAILY . Prescribed by: PALOMO SALAZAR on 12/03/17 1429 Doxepin HCl 25 Mg Capsule, 25 MG PO HS, (Reported) Esomeprazole Magnesium 40 Mg Cap, 40 MG PO DAILY, (Reported) Etanercept 50 Mg/1 Ml Syringe, 50 MG INJ Tu, (Reported) Gabapentin 300 Mg Capsule, 600 MG PO TID, (Reported) TAKES 2 (300MG) CAPSULES L.acidoph & Paracasei,B.lactis 1 Each Capsule, 1 CAP PO BID, (Reported) Metoprolol Tartrate 25 Mg Tablet, 12.5 MG PO BID Prescribed by: JAMES MENDEZ on 04/13/17 1113 Montelukast Sodium 10 Mg Tablet, 10 MG PO HS, (Reported) Multivitamin 1 Each Tab.chew, 2 TAB.CHEW PO DAILY, (Reported) Oxycodone HCl/Acetaminophen 1 Each Tablet, 1 TAB PO TID PRN for PAIN-MODERATE, ( Reported) Pravastatin Sodium 10 Mg Tablet, 10 MG PO HS, (Reported) Prednisone 10 Mg Tab.ds.pk, 10 MG PO DAILY Take 6 tabs(60mg)daily,decrease by 1 tab(10MG)daily. Prescribed by: JAMES MENDEZ on 04/13/17 111 Ranitidine HCl 150 Mg Tablet, 150 MG PO BID, (Reported) Sertraline HCl 50 Mg Tablet, 50 MG PO DAILY, (Reported) Tiotropium [place] 4 Gm Mist.inhal, 2.5 MCG PO DAILY, (Reported) Verapamil HCl 120 Mg Tablet.er, 120 MG PO DAILY, (Reported) Patient Home Medication List Home Medication List Reviewed: Yes Review of Systems Review of Systems Constitutional: see HPI Respiratory: No Symptoms Reported Cardiovascular: No Symptoms Reported Gastrointestinal: See HPI, Abdominal Pain (skin area near the tube), Constipated; Denies Nausea, Denies Vomiting Skin: see HPI, change in color, lesions Past Zglfqfa-Pzhzhl-Ujxemx Hx Past Med/Social Hx: Reviewed Nursing Past Med/Soc Hx Patient Social History Alcohol Use: Denies Use Recreational Drug Use: No Smoking Status: Former Smoker Type Used: Cigarettes Former Smoker, Quit: Dec 11, 2014 2nd Hand Smoke Exposure: No Recent Foreign Travel: No Contact w/Someone Who Travel: No Recent Infectious Disease Expo: No Recent Hopitalizations: No Physical Abuse: No Sexual Abuse: No Mistreated: No Fear: No Immunizations Up To Date Tetanus Booster (TDap): Unknown PED Vaccines UTD: Yes Date of Pneumonia Vaccine: Aug 05, 2013 Date of Influenza Vaccine: Apr 13, 2017 Seasonal Allergies Seasonal Allergies: Yes Past Medical History Surgeries: Yes (THROAT RELATED TO BIOPSY, FEEDING TUBE, R HIP, R TKR, L FOOT) Joint Replacement, Orthopedic, Vascular Surgery Respiratory: Yes (O2 2L NC AT NIGHT AND PRN) Pneumonia, Chronic Bronchitis, COPD, Emphysema Currently Using CPAP: No Currently Using BIPAP: No Cardiac: Yes (CAROTID DISEASE--COMPLETE OCCLUSION OF LEFT CAROTID) High Cholesterol, Hypertension, Peripheral Vascular Neurological: Yes (DYSPHAGIA, DYSARTHRIA; RIGHT SIDE WEAKNESS--POST CVA) Dementia, Stroke Reproductive Disorders: No 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 ) Arthritis, Rheumatoid Arthritis Endocrine: No HEENT: Yes (GLASSES) Dysphagia, Tinnitis Loss of Vision: Bilateral Hearing Impairment: Denies Cancer: No Psychosocial: Yes Sleep Difficulties, Anxiety, Depression Integumentary: No Blood Disorders: No Adverse Reaction/Blood Tranf: No Family Medical History Reviewed Nursing Family Hx Cancer 09 SISTER Family history: Arthritis 09 BROTHER 09 SISTER Family history: Cardiovascular disease 09 SISTER Family history: Thyroid disorder 09 SISTER Malignant neoplasm of lung 09 SISTER Heart Disease Physical Exam Vital Signs Vital Signs - First Documented 03/18/18 17:08 Temp 98.6 Pulse 68 Resp 16 B/P (MAP) 139/58 (85) Pulse Ox 95 Capillary Refill : Less Than 3 Seconds Height/Weight/BMI Height: 5'3.00" Weight: 180lbs. 8.0oz. [id number]; 35.9 BMI Method:Stated General Appearance: WD/WN, no apparent distress HEENT: other (healing surgical wound to the anterior neck and within the mouth under the tongue) Respiratory: lungs clear, normal breath sounds Cardiovascular: regular rate, rhythm, no murmur Gastrointestinal: soft, other (tender in the area near the tube on the right lateral aspect. Skin as described below) Back: normal inspection, no CVA tenderness, no vertebral tenderness Skin: warm/dry, other (the area around the feeding tube appears healed except for on the right lateral aspect. This area has erythema and there appears to be a foreign body within the skin appears to be plastic. There is an abraded hole into the scan over the area of the foreign body that's approximately 3 x 5 mm an oval-shaped.) Progress/Results/Core Measures Results/Orders My Orders Orders - DANA HUMPHREY MD Acute Abd Series (03/18/18 17:26) Vital Signs/I&O 03/18/18 17:08 Temp 98.6 Pulse 68 Resp 16 B/P (MAP) 139/58 (85) Pulse Ox 95 Blood Pressure Mean: 85 Progress Progress Note : Progress Note Seen and evaluated. Acute abdominal series ordered. I did discuss the case with Dr. Banks he will see the patient in the emergency department. 1750: Dr. Banks has seen the patient in the ER. There was a supporting button under the skin. This appears to be eroded into the skin. Dr. Choudhury was able to remove it without difficulty. It was still sutured in place and the sutures. The remaining hole was cleaned. The wound was packed with iodoform gauze and covered with dressing. PEG tube remained in place. X-ray was done prior and does not show any significant or concerning findings. We did discuss with the patient about continued packing in wound care. Also discussed constipation. Discharged home with return precautions. Patient verbalize understanding instructions and agreement with plan. Departure Impression Primary Impression: Wound of skin Additional Impression: Constipation Qualified Codes: K59.00 - Constipation, unspecified Disposition: HOME, SELF-CARE Condition: Improved Departure-Patient Inst. Decision time for Depature: 18:12 Referrals: [facility] (PCP) Primary Care Physician DAPHNE YUSUF (Family) Primary Care Physician Patient Instructions: Constipation, Adult (DC), How to Care for Your PEG Tube Add. Discharge Instructions: All discharge instructions reviewed with patient and/or family. Voiced understanding. You may use MiraLAX or the generic one half to one capful twice daily as needed for constipation. Continue tube feeds and normal diet. The wound should be cleaned daily with warm soap and water. You should then place a small strip of gauze in place to the wound to prevent wound from closing at the top off staying open at the bottom. This will allow the wound to heal from the bottom up. Follow-up with your Dr. in a few days for recheck. Return for worse pain, fever, vomiting, weakness, breathing problems or other concerns as needed. You should call the office of the surgeon who placed the tube to let them know what has occurred and what is going on in case they would like to follow up again. DANA HUMPHREY MD Mar 18, 2018 17:36
--- NOTE | 2018-03-18 17:54 | Diagnostic Imaging Report ---
INDICATION: Pain. FINDINGS: The lungs are clear although hyperexpanded. A gastrostomy tube projects over the left upper quadrant. There is atherosclerotic vascular calcification and iliac stenting. The bowel gas pattern is unremarkable. No free air or evidence for obstruction. IMPRESSION: Clear hyperexpanded lungs. G-tube radiographically projects in expected alignment. No bowel obstruction or free air. Dictated by: Dictated on workstation # [id number]
[2018-03-18 18:25] VITALS: BP 126/87
--- OUTSIDE RECORDS SUMMARY | 2018-03-18 19:56 | XMS REPORT | Clinical Summary ---
Author Author [facility] Address Unknown Phone Unavailable Care Team Providers Care Supervisor Cigarette Making Department Name Role Phone RubinaDarling Domenica DO Unavailable Unavailable Herman Castrejon PHARMD Unavailable Unavailable Didi Louie APRN PCP Source Comments Some departments are not documenting in the electronic medical record. If you do not see the information that you expected, contact Release of Information in the Health Information Management department at [phone] for further assistance in locating additional records.[facility] Allergies Active Allergy Reactions Severity Noted Date Comments Levofloxacin SEE COMMENTS Low 01/07/2018 C Diff Ceftriaxone HEADACHE, NAUSEA ONLY, Low 12/25/2017 DIZZINESS Current Medications Prescription Sig. Disp. Refills Start End Date Status Date Cholecalciferol (Vitamin Take 1 capsule by mouth Active D3) (VITAMIN D) 1,000 daily. unit capIndications: per feeding tube etanercept (ENBREL) 50 Inject 50 mg under the Active mg/mL (0.98 mL) injection skin every 7 days. Lactobacillus acidophilus Take by mouth twice Active (PROBIOTIC PO) daily. montelukast (SINGULAIR) Take 10 mg by mouth at Active 10 mg tabletIndications: bedtime daily. per feeding tube aspirin EC 81 mg Take 81 mg by mouth Active tabletIndications: Per daily. Take with food. feeding tube ranitidine(+) (ZANTAC) Take 150 mg by mouth Active 150 mg tabletIndications: twice daily. per Feeding tube sertraline (ZOLOFT) 50 mg Take 50 mg by mouth Active tabletIndications: per daily. feeding tube traZODone (DESYREL) 50 mg Take 100 mg by mouth at Active tabletIndications: per bedtime as needed for feeding tube Sleep. SYMBICORT 160-4.5 Inhale 2 puffs by mouth 12/02/19 Active mcg/actuation inhalation into the lungs twice 18 daily. SPIRIVA RESPIMAT 2.5 Inhale 1 puff by mouth 10/22/19 Active mcg/actuation inhaler into the lungs daily. 18 magnesium oxide (MAG-OX) Take 1 tablet by mouth 180 tablet 3 01/23/20 Active 400 mg tabletIndications: daily. 18 per feeding tube apixaban (ELIQUIS) 5 mg Take 5 mg by mouth twice Active tabletIndications: per daily. feeding tube cetirizine (ZYRTEC) 10 mg Take 10 mg by mouth every Active tabletIndications: per morning. feeding tube acetaminophen (TYLENOL) Take 20.3 mL via feeding 240 mL 0 02/20/20 Active 160 mg/5 mL oral solution tube every 4 hours as 18 needed. Max of 4,000 mg of acetaminophen in 24 hours. pravastatin (PRAVACHOL) Take one tablet by mouth 90 tablet 3 02/20/20 Active 10 mg tablet at bedtime daily. Per 18 feeding tube senna/docusate one tablet by Per G Tube 60 tablet 0 02/20/20 Active (SENOKOT-S) 8.6/50 mg route twice daily as 18 tablet needed. oxyCODONE/acetaminophen Take one tablet via 20 tablet 0 02/23/20 Active (PERCOCET; ENDOCET; feeding tube every 4 18 ROXICET) 5/325 mg hours as needed tabletIndications: per Feeding tube fluconazole (DIFLUCAN) Take one tablet by mouth 1 tablet 1 02/23/20 Active 100 mg tablet daily. 18 pravastatin (PRAVACHOL) Take 10 mg by mouth at 02/20/20 Discontin 10 mg tablet bedtime daily. 18 ued oxyCODONE/acetaminophen Take 1 tablet by mouth 02/20/20 Discontin (PERCOCET; ENDOCET; twice daily 18 ued ROXICET) 5/325 mg tablet lactobacillus rhamnosus Take 1 capsule by mouth 02/20/20 Discontin (GG) (CULTURELLE) 10 twice daily with meals. 18 ued billion cell cap oxyCODONE/acetaminophen Take one tablet via 20 tablet 0 02/20/20 Discontin (PERCOCET; ENDOCET; feeding tube every 4 18 18 ued ROXICET) 5/325 mg hours as needed Earliest tabletIndications: per Fill Date: 02/19/18 Feeding tube oxyCODONE/acetaminophen Take one tablet via 20 tablet 0 02/23/20 Discontin (PERCOCET; ENDOCET; feeding tube every 4 18 18 ued ROXICET) 5/325 mg hours as needed tabletIndications: per Feeding tube Active Problems Problem Noted Date COPD (chronic obstructive pulmonary disease) ([facility]) 02/16/2018 On home oxygen therapy 02/16/2018 Cancer of oral cavity (HCC) 02/15/2018 Oral cancer (HCC) 01/29/2018 Overview: Added automatically from request for surgery [id number] PSVT (paroxysmal supraventricular tachycardia) ([facility]) 01/07/2018 Overview: ECHO 11/20/15: normal LV with EF of 60-65%, trivial MR and TR, mild diastolic dysfunction. Palpitations 01/07/2018 AVNRT (AV jovan re-entry tachycardia) ([facility]) 01/07/2018 Chest pain 01/07/2018 CVA (cerebral vascular accident) ([facility]) 01/07/2018 AVNRT (AV jovan re-entry tachycardia) ([facility]) 01/07/2018 Overview: Added automatically from request for surgery [id number] 01/21/18 EP study and successful slow pathway ablation for typical AVNRT by Dr. 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 Encounters Date Type Specialty Care Team Description 03/09/2018 Telephone Otolaryngology Hesham Mott MD Other (Speak to nurse) 02/23/2018 Telephone Otolaryngology Herman Ramos PA-C Follow-up Phone Call 02/22/2018 Office Visit Otolaryngology Herman Ramos PA-C Oral cancer (HCC) (Primary Dx); Cancer of oral cavity (HCC) 02/19/2018 Orders Only Otolaryngology Hesham Mott MD Oropharyngeal dysphagia (Primary Dx) 02/15/2018 Hospital Hesham Mott MD Oral cancer (HCC) - Encounter 02/19/2018 02/15/2018 Procedure Pass 02/15/2018 Surgery Hesham Mott MD CERVICAL LYMPHADENECTOMY 02/09/2018 Telephone Otolaryngology Hesham Mott MD Surgery 01/29/2018 Hospital Lab Sayra Leggett MD Encounter for blood Encounter typing 01/29/2018 PAC Office Anesthesiology Hesham Mott MD Encounter for blood Visit typing (Primary Dx) 01/29/2018 Office Visit Otolaryngology Hesham Mott MD Oral cancer (HCC) (Primary Dx) 01/29/2018 Hospital Lab Hesham Mott MD Malignant neoplasm of Encounter floor of mouth, unspecified (HCC) 01/29/2018 Hospital Radiology Hesham Mott MD Encounter 01/29/2018 Hospital Radiology Hesham Mott MD Encounter 01/29/2018 Anesthesia Cuong Woods DO Event 01/29/2018 Prep for Case Otolaryngology Hesham Mott MD Oral cancer (HCC) (Primary Dx) 01/27/2018 Telephone Cardiology Madeline Bhat, minesweeping officer Follow-up (question re:diltiazem and eliquis) 01/21/2018 [facility] Cardiology Pranav Ruiz MD AVNRT (AV jovan re- entry - Encounter tachycardia) (HCC) 01/22/2018 01/21/2018 Procedure Pass Cardiology 01/21/2018 Surgery Cardiology Pranav Ruiz MD INTRACARDIAC CATHETER ABLATION WITH COMPREHENSIVE ELECTROPHYSIOLOGIC EVALUATION - ATRIOVENTRICULAR JOVAN REENTRY TACHYCARDIA 01/20/2018 Anesthesia Cardiology Dhaval Arreola CRNA Event 01/19/2018 Procedure Pass Radiology 01/19/2018 Procedure Pass Radiology 01/18/2018 Procedure Pass Radiology 01/18/2018 Orders Only Otolaryngology Hesham Mott MD 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) 01/18/2018 Orders Only Otolaryngology Hesham Mott MD 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 Fong); Tachycardia 01/07/2018 Orders Only Cardiology Pranav Ruiz MD 01/07/2018 Prep for Case Cardiology Pranav Ruiz MD SVT ( supraventricular tachycardia) (HCC) (Primary Dx) 12/25/2017 Patient Profile Cardiology Rubén Burgos New Patient ( [place]ANTON (dyspnea on exertion)) 12/21/2017 Telephone Cardiology Luiza Trujillo RN from Last 3 Months Family History Medical History Relation Name Comments Gout Brother Heart Attack Mother Gout Sister Relation Name Status Comments Brother Alive Father poor blood circlation lost legs Mother bleeding disorder Sister Alive Social History Tobacco Use Types Packs/Day Years Used Date Former Smoker Cigarettes 2 20 Quit: 05/28/2015 Smokeless Tobacco: Never Used Alcohol Use Drinks/Week oz/Week Comments No used to have 10-12 beers/day;10 shots/week quit 2003 Sex Assigned at Date Recorded Not on file Last Filed Vital Signs Vital Sign Reading Time Taken Blood Pressure 127/65 02/22/2018 10:42 AM CDT Pulse 74 02/22/2018 10:42 AM CDT Temperature 37.1 C (98.7 F) 02/19/2018 10:00 AM CDT Respiratory Rate 14 07/04/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 Oxygen Saturation 93% 02/19/2018 10:00 AM CDT Inhaled Oxygen - - Concentration Weight 81.6 kg (180 lb) 02/22/2018 10:42 AM CDT Height 157.5 cm (5' 2") 02/22/2018 10:42 AM CDT Body Mass Index 32.92 02/22/2018 10:42 AM CDT Plan of Treatment Health Maintenance Due Date Last Done Comments HEPATITIS C SCREENING 1950 PHYSICAL (COMPREHENSIVE) 1956 EXAM PERTUSSIS VACCINE 1960 TETANUS VACCINE 1966 BREAST CANCER SCREENING 1989 COLORECTAL CANCER 1999 SCREENING SHINGLES RECOMBINANT 1999 VACCINE (1 of 2) OSTEOPOROSIS SCREENING 2014 PNEUMONIA (PCV13/PPSV23) 2014 VACCINES (1 of 2 - PCV13) INFLUENZA VACCINE 04/12/2018 Procedures Procedure Name Priority Date/Time Associated Diagnosis Comments ECG-SCAN 02/27/2018 Results for this 9:45 AM CDT procedure are in the results section. ECG-SCAN 02/22/2018 Results for this 9:07 AM CDT procedure are in the results section. TELEMETRY STRIPS-SCAN 02/22/2018 Results for this 9:07 AM CDT procedure are in the results section. COMPOSITE RESECTION WITH 02/15/2018 Oral cancer (HCC) NECK DISSECTION 11:20 AM CDT CERVICAL LYMPHADENECTOMY 02/15/2018 Oral cancer (HCC) 11:20 AM CDT ECG-SCAN 01/31/2018 Results for this 8:25 AM CDT procedure are in the results section. ECG-SCAN 01/26/2018 Results for this 7:35 AM CDT procedure are in the results section. CONSULT IV THERAPY TEAM Routine 01/21/2018 8:28 PM CDT from Last 3 Months Results * PATHOLOGY INTEROPERATIVE REPORT SCAN (03/09/2018 8:16 AM) Narrative Performed At Ordered by an unspecified provider. * ECG-SCAN (02/27/2018 9:45 AM) Narrative Performed At Ordered by an unspecified provider. * ECG-SCAN (02/22/2018 9:07 AM) Narrative Performed At Ordered by an unspecified provider. * TELEMETRY STRIPS-SCAN (02/22/2018 9:07 AM) Narrative Performed At Ordered by an unspecified provider. * IR GASTROSTOMY (02/17/2018 3:31 PM) Impressions Performed At Percutaneous gastrostomy feeding tube placement as described above. [facility] Approved by Eliud Hayes MD on 02/17/2018 3:45 PM IPrince M.D., the attending radiologist, was present for the procedure, personally reviewed the images, and formulated the interpretations and opinions expressed in this report. @TT By my electronic signature, I attest that I have personally reviewed the images for this examination and formulated the interpretations and opinions expressed in this report Finalized by Leon Galloway M.D. on 02/17/2018 4:47 PM. Dictated by Eliud Hayes MD on 02/17/2018 3:44 PM. Narrative Performed At Gastrostomy Tube: [facility] History: 67-year-old female with oral cancer and dysphagia. Procedure and technique: The risks and benefits of the procedure were explained to patient and informed consent was obtained. The patient was placed supine on fluoroscopic table. The stomach insufflated was with air. The left upper quadrant was prepped and draped in usual sterile fashion. The inferior body of the stomach was localized under fluoroscopic guidance. 2% lidocaine was used to anesthetize the overlying tissues. Three gastropexy needles were placed and the stomach and the T-fasteners deployed. The stomach wall was then secured against the anterior abdominal wall. Next, an 18-gauge needle was placed centrally within the gastroplasty sutures. Amplatz wire was then placed through the needle into the distal stomach. A dermatotomy was then created around the wire. A 14 Citizen [place] telescoping sheath was then placed over the wire and the tract dilated. Next, the 18 Fr gastrostomy tube was placed in the sheath and the peel-away sheath removed. A small injection of contrast through the gastrostomy tube to confirm appropriate position within the stomach. The gastrostomy tube balloon was inflated and pulled against the stomach wall. The gastrostomy tube was then secured in place. The patient tolerated procedure well, there were no complications. Total absorbed x-ray dose: 41 mGy Sedation Medication:I was personally responsible for the administration of moderate sedation services during the procedure performed and I confirm requirements described in CPT section on moderate sedation were followed, including the use of an independent trained observer who had no other duties during the procedure.The total supervised sedation time was 14 minutes.See nursing log for complete details; the drugs utilized were: 3 mg IV Versed; 150 mcg IV Fentanyl. Procedure Note Interface, Radiant Results - 02/17/2018 4:50 PM CDT Gastrostomy Tube: History: 67-year-old female with oral cancer and dysphagia. Procedure and technique: The risks and benefits of the procedure were explained to patient and informed consent was obtained. The patient was placed supine on fluoroscopic table. The stomach insufflated was with air. The left upper quadrant was prepped and draped in usual sterile fashion. The inferior body of the stomach was localized under fluoroscopic guidance. 2% lidocaine was used to anesthetize the overlying tissues. Three gastropexy needles were placed and the stomach and the T- fasteners deployed. The stomach wall was then secured against the anterior abdominal wall. Next, an 18-gauge needle was placed centrally within the gastroplasty sutures. Amplatz wire was then placed through the needle into the distal stomach. A dermatotomy was then created around the wire. A 14 Citizen [place] telescoping sheath was then placed over the wire and the tract dilated. Next, the 18 Fr gastrostomy tube was placed in the sheath and the peel-away sheath removed. A small injection of contrast through the gastrostomy tube to confirm appropriate position within the stomach. The gastrostomy tube balloon was inflated and pulled against the stomach wall. The gastrostomy tube was then secured in place. The patient tolerated procedure well, there were no complications. Total absorbed x-ray dose: 41 mGy Sedation Medication: I was personally responsible for the administration of moderate sedation services during the procedure performed and I confirm requirements described in CPT section on moderate sedation were followed, including the use of an independent trained observer who had no other duties during the procedure. The total supervised sedation time was 14 minutes. See nursing log for complete details; the drugs utilized were: 3 mg IV Versed; 150 mcg IV Fentanyl. IMPRESSION Percutaneous gastrostomy feeding tube placement as described above. Approved by Eliud Hayes MD on 02/17/2018 3:45 PM I, Prince Galloway M.D., the attending radiologist, was present for the procedure, personally reviewed the images, and formulated the interpretations and opinions expressed in this report. @TT By my electronic signature, I attest that I have personally reviewed the images for this examination and formulated the interpretations and opinions expressed in this report Finalized by Leon Galloway M.D. on 02/17/2018 4:47 PM. Dictated by Eliud Hayes MD on 02/17/2018 3:44 PM. Performing Organization Address City/State/Zipcode Phone Number RAD RESULTS * PHOSPHORUS (02/17/2018 5:22 AM) Phosphorus 2.1 2.0 - 4.0 MG/DL MAIN LAB Specimen Blood Performing Organization Address City/[facility]/Zipcode Phone Number MAIN LAB [address] [place] [address] * MAGNESIUM (02/17/2018 5:22 AM) Only the most recent of 3 results within the time period is included. Magnesium 1.6 1.6 - 2.6 mg/dL [facility] Specimen Blood Performing Organization Address City/[facility]/Zipcode Phone Number [facility] [address] [phone] * BASIC METABOLIC PANEL (02/17/2018 5:22 AM) Only the most recent of 4 results within the time period is included. Sodium 138 137 - 147 MMOL/L [facility] Potassium 4.0 3.5 - 5.1 MMOL/L [facility] Chloride 102 98 - 110 MMOL/L [facility] CO2 28 21 - 30 MMOL/L [facility] Anion Gap 8 3 - 12 [facility] Glucose 111 (H) 70 - 100 MG/DL [facility] Blood Urea Nitrogen 12 7 - 25 MG/DL [facility] Creatinine 0.65 0.4 - 1.00 MG/DL [facility] Calcium 9.2 8.5 - 10.6 MG/DL [facility] eGFR Non >60 >60 mL/min [facility] Comment: The eGFR is not validated for use in drug dosing adjustments.Continue to use estimated creatinine clearance per dosing reference text.Please contact the Clinical Pharmacist for questions. eGFR >60 >60 mL/min [facility] Comment: The eGFR is not validated for use in drug dosing adjustments.Continue to use estimated creatinine clearance per dosing reference text.Please contact the Clinical Pharmacist for questions. Specimen Blood Performing Organization Address City/[facility]/Zipcode Phone Number MAIN LAB [address] [place] [address] * CBC (02/16/2018 6:25 AM) Only the most recent of 2 results within the time period is included. White Blood Cells 16.8 (H) 4.5 - 11.0 K/UL [facility] RBC 4.10 4.0 - 5.0 M/UL [facility] Hemoglobin 13.1 12.0 - 15.0 GM/DL [facility] Hematocrit 39.1 36 - 45 % [facility] MCV 95.3 80 - 100 FL [facility] MCH 31.9 26 - 34 PG [facility] MCHC 33.5 32.0 - 36.0 G/DL [facility] RDW 13.5 11 - 15 % [facility] Platelet Count 291 150 - 400 K/UL [facility] MPV 8.9 7 - 11 FL [facility] Specimen Blood Performing Organization Address City/State/Zipcode Phone Number MAIN LAB [address] [place] [address] * SURGICAL PATHOLOGY (02/15/2018 2:52 PM) PATHOLOGY REPORT [facility] [email or web address] Department of Pathology and Laboratory Medicine [address] [place] [address] Surgical Pathology Office:[phone] :[phone] SURGICAL PATHOLOGY REPORT NAME: LONA ROLLINS SURG PATH #: [id number] MR #: [id number] SPECIMEN CLASS: [facility] BILLING #: [id number] ALT ID #:LOCATION: [facility] DATE OF PROCEDURE: 02/15/2018 AGE:67 SEX: F DATE RECEIVED: 02/15/2018 : 1950TIME RECEIVED:14:52 PHYSICIAN: HESHAM MOTT MD DATE OF REPORT: 02/18/2018 COPY TO:DATE OF PRINTIN02/18/2018 ############################## ############################## ############ Final Diagnosis: A. Squamous mucosa, "anterior mucosal margin", excision: Negative for malignancy. B. Squamous mucosa, "posterior mucosal margin", excision: Squamous cell carcinoma in situ. C. Skeletal muscle, "deep mucosal margin", excision: Negative for malignancy. D. Squamous mucosa and skeletal muscle, "right floor of mouth lesion", composite resection: Squamous cell carcinoma in situ; margins negative. See synoptic report below. E. Squamous mucosa, "posterior mucosal margin #2 for frozen", excision: Negative for malignancy. F. Salivary gland and lymph node (1), "left level one neck dissection", dissection: Negative for malignancy in one lymph node. (0/1) Salivary gland without diagnostic abnormalities. G. Lymph nodes (3), "level one A neck dissection", dissection: Negative for malignancy in three lymph nodes. (0/3) H. Squamous mucosa and skeletal muscle, "reresection of posterior mucosal margin", excision: Negative for malignancy. I. Lymph nodes (20), "left neck dissection", excision: Negative for malignancy in 20 lymph nodes. (0/20) J. Salivary gland, "right level 1B neck dissection", dissection: Salivary gland without diagnostic abnormalities. K. Lymph nodes (20), "right neck dissection", dissection: Negative for malignancy in 20 lymph nodes. (0/20) Comment: The floor of mouth resection specimen (part D) shows involvement by squamous cell carcinoma in situ. Multiple levels of the lesion are evaluated, and no residual invasion was identified. We reviewed the outside biopsy slides from the lesion, and confirm the presence of invasive carcinoma in the biopsy tissue. ([id number]). --------- LIP AND ORAL CAVITY: Excisional Biopsy, Resection CAP Version: Lip Oral Cavity 4.0.0.0 Procedure (select all that apply): Excision, floor of mouth Lymph node dissection, right and left neck Tumor Site: Oral, Floor of mouth Tumor Laterality: Right Tumor Focality: Unifocal CIS Tumor Size: Greatest dimension (centimeters): 0.6 cm Tumor Depth of Invasion (DOI) (millimeters): No invasion in the current specimen Histologic Type: Squamous Cell Carcinoma in situ Histologic Grade: N/a Tumor Extension (other structures involved) No Specimen Margins : Margins on the main composite resection specimen: Negative Uninvolved by high-grade dysplasia/in situ disease Distance from closest margin (millimeters): 3 mm Specify margin:Posterior Tumor Bed (Separately Submitted) Margins: Uninvolved by high-grade dysplasia/in situ disease All final separately submitted margins are negative Tumor Bed (Separately Submitted) Margin Orientation (required for squamous cell carcinomas only): N/a Lymphovascular Invasion: Not identified Perineural Invasion: Not identified Worst Pattern of Invasion (WPOI): N/a Lymph Node Examination: Number of Lymph Nodes Involved: 0 Number of Lymph Nodes Examined:44 Laterality of Lymph Nodes Involved: N/a Extranodal Extension (GUILLERMO): N/a Pathologic Stage Classification (pTNM, AJCC 8th Edition) Note: Reporting of pT, pN, and (when applicable) pM categories is based on information available to the pathologist at the time the report is issued. [id number] For All Carcinomas Primary Tumor (pT): pTis:Carcinoma in situ Regional Lymph Nodes (pN): pN0: No regional lymph node metastasis Distant Metastasis (pM): N/a Additional Pathologic Findings (select all that apply): None identified Ancillary Studies: None The pathologic stage assigned here should be regarded as provisional, as it reflects only current pathologic data and does not incorporate full knowledge of the patient's clinical status and/or prior pathology. Attestation: By this signature, I attest that I have personally formulated the final interpretation expressed in this report and that the above diagnosis is based upon my examination of the slides and/or other material indicated in this report. +++ +++ weston/02/16/2018 ############################## ############################## ############ Material Received: A: anterior mucosal margin B: posterior mucosal margin C: deep mucosal margin D: right floor of mouth lesion single=anterior, double medial E: posterior mucosal margin #2 for frozen F: left level one neck dissection G: level one A neck dissection H: reresection of posterior mucosal margin I: left neck dissection J: right level 1B neck dissection K: right neck dissection History: 67-year-old female with a clinical history of oral cancer. Gross Description: A. Received fresh, labeled with patient's name and "anterior mucosal margin" is a 1.6 x 0.4 x 0.3 white-boudreaux tissue fragment. The specimen is submitted entirely for frozen consultation with the remnant placed in cassette A1FS for permanent diagnosis. (f [facility]) B. Received fresh, labeled with patient's name and "posterior mucosal margin" is a 3.1 x 0.5 x 0.4 cm white-boudreaux tissue fragment. The specimen is bisected and is submitted entirely for frozen consultation with the remnant placed in cassette B1FS for permanent diagnosis. (f [facility]) C. Received fresh, labeled with patient's name and "deep mucosal margin" is a 0.4 x 0.3 x 0.2 cm white-boudreaux tissue fragment. The specimen is submitted entirely for frozen consultation with the remnant placed in cassette C1FS for permanent diagnosis. D. Received fresh, labeled with the patient's name and "right floor of mouth lesion single=anterior, double=medial" is an oriented, irregular fragment of mucosa with attached soft tissue measuring 3.2 x 1.9 x 0.4 cm. There is a single stitch designated as anterior and a double stitch designated as medial. On the mucosal surface is a 0.6 x 0.3 cm possible ulcerative lesion that measures to the following margins: Medial - 0.6 cm Anterior - 0.5 cm Posterior - 0.6 cm Lateral - 1.8 cm The specimen is inked as follows: Anterior - blue Medial - yellow Posterior - green Lateral - orange Deep - black The specimen is serially sectioned from medial to lateral and submitted entirely as follows: D1 Medial and lateral margins, serially sectioned. D2-D3 Remainder of specimen from medial to lateral. ([facility]) E. Received fresh, labeled with the patient's name and "posterior mucosal margin #2" is a 3.3 x 0.5 x 0.3 white-boudreaux tissue fragment. The specimen is submitted entirely for frozen consultation with the remnant placed in cassette E1FS for permanent diagnosis. ([facility]) F. Received fresh labeled with the patient's name and "left level one neck dissection" is an 8 gram, 4.0 x 2.7 x 1.5 cm boudreaux-brown lobulated mandibular gland. The specimen is serially sectioned to reveal a boudreaux-brown cut surface without nodules or masses. No lymph nodes are grossly identified. Flat Optical Element Maker sections of the submandibular gland are submitted in cassettes F1-F2. (ne) G. Received fresh labeled with the patient's name and "level 1A neck dissection" is a 4.6 x 3.0 x 1.0 cm portion of yellow-boudreaux lobulated fibroadipose tissue. The specimen is serially sectioned to reveal two pink-boudreaux possible lymph nodes measuring 0.6 and 0.5 cm in greatest dimension. The specimen is submitted entirely as follows: G1Two bisected lymph nodes (one inked black). G2-Y9Zvncbmnpf fibroadipose tissue. (ne) H. Received fresh labeled with the patient's name and "reresection of posterior mucosal margin" is a specimen consisting of two fragments of pink-boudreaux mucosa measuring 1.8 x 0.8 x 0.6 cm and 1.8 x 1.0 x 0.5 cm. The specimen is submitted without sectioning in cassette H1. (ne) I. Received fresh labeled with the patient's name and "left neck dissection" is a 12.2 x 2.9 x 0.6 cm portion of boudreaux-yellow lobulated fibroadipose tissue. The specimen is palpated to reveal multiple pink-boudreaux lymph nodes ranging from 0.2 cm to 1.8 cm in greatest dimension. The specimen is submitted entirely as follows: I1-E3Uundxpae whole lymph nodes in each cassette. I3One bisected lymph node. I4One fragments of possible lymph node. I5-E0Gqjvlxlea fibroadipose tissue. (ne)J. Received fresh, labeled with the patient's name and "right level IB neck dissection" is a 5.2 x 3.5 x 1.7 cm white-boudreaux to pale yellow tissue fragment, which is grossly consistent with submandibular gland. The entire specimen is palpated to reveal no apparent lymph nodes. The specimen is serially sectioned to reveal a white-boudreaux to pale yellow lobulated cut surface. Flat [employer] Maker sections are submitted in cassettes J1 and J2. ([facility])K. Received fresh labeled with the patient's name and "right neck dissection" is a 6.5 x 6.4 x 1.2 cm aggregate of yellow-boudreaux tissue palpated to reveal multiple possible lymph nodes, ranging in size from 0.4 x 0.3 x 0.3 cm up to 1.3 x 0.8 x 0.8 cm. The specimen is submitted entirely as follows: K1 Six possible lymph nodes, submitted whole. K2 Six possible lymph nodes, submitted whole. K3 Three possible lymph nodes, bisected (two possible lymph nodes differentially inked black and blue). K4 Two possible lymph nodes, bisected (one possible lymph node differentially inked black). K5-K8 Remainder of fibroadipose tissue and possible lymph nodes. ([facility]) jrt/02/15/2018 Intraoperative Consultation: A1FS, squamous mucosa, "anterior mucosal margin", biopsy: Negative for malignancy. B1FS, squamous mucosa, "posterior mucosal margin", biopsy: Squamous cell carcinoma in situ. C1FS, skeletal muscle, "deep mucosal margin", biopsy: Negative for malignancy. E1FS, Squamous mucosa, "posterior mucosal margin #2 for frozen", biopsy: Negative for high-grade dysplasia or malignancy.Frozen section performed at the [facility], [facility] A, [facility] [place] [address]. Mónica Courtney MD Performing Organization Address City/[facility]/Zipcode Phone Number LAB RESULTS * ECG-SCAN (01/31/2018 8:25 AM) Narrative Performed At Ordered by an unspecified provider. * TYPE & SCREEN (NOT CROSSMATCH ELIGIBLE) (01/29/2018 2:03 PM) ABO/RH(D) A NEG MAIN LAB Antibody Screen NEG MAIN LAB Blood Component Type RED CELL GROUP MAIN LAB Specimen Blood, venous - Blood Performing Organization Address [facility]/Zipcode Phone Number MAIN LAB [address] [place] [address] * OUTSIDE PATHOLOGY CONSULT (01/29/2018 11:08 AM) PATHOLOGY REPORT [facility] [email or web address][facility] Department of Pathology and Laboratory Medicine [address] [place] [address] Surgical Pathology Office:[phone] :[phone] PATHOLOGY CONSULTATION NAME: LONA ROLLINS SURG PATH #: [id number] MR #: [id number] ALT ID #: LOCATION: [facility] DATE OF PROCEDURE: 01/29/2018 AGE:67 SEX: F DATE RECEIVED: 01/29/2018 : 1950TIME RECEIVED:11:08 PHYSICIAN: HESHAM MOTT MD DATE OF REPORT: 02/08/2018 COPY TO:DATE OF PRINTIN02/08/2018 OUTSIDE INSTITUTION: [facility] [address] [place] [address] F: [phone] ############################## ############################## ############ Final Diagnosis: A. Outside case "[id number]" (Date collected: 01/02/18): 1. Squamous mucosa, "floor of mouth", biopsy: Invasive squamous cell carcinoma, moderately to poorly differentiated See comment. Comment: P16 immuno stain is performed on block A1 and is negative. Human papillomavirus (HPV) in situ hybridization studies for High Risk HPV (genotypes 16 and 18), using the SoCAT HPV Type 16/18 Probe, are performed on the lesion with appropriate positive and negative controls. Results show the tumor cells to be NEGATIVE for high risk HPV. Attestation: By this signature, I attest that I have personally formulated the final interpretation expressed in this report and that the above diagnosis is based upon my examination of the slides and/or other material indicated in this report. +++ +++ DO Ariel Schulte w/01/29/2018 ############################## ############################## ############ Material Received: A: Outside Slides x6 [id number] [facility] [address] 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 Gross Description: A. Received are six (6 USS) slides and a report labeled "[id number]". [facility]01/29/2018 If immunohistochemical stains and/or in situ hybridization are cited in this report, the performance characteristics were determined by the Department of Pathology and Laboratory Medicine of the [facility] ([employer]) in compliance with CLIA'88 regulations.Some of these tests rely on the use of "analyte specific reagents" and are subject to specific labeling requirements by the FDA. Known positive and negative control tissues demonstrate appropriate staining.Results should be interpreted with caution given the likelihood of false negativity on decalcified specimens.This testing was developed by the Department of Pathology and Laboratory Medicine of the [facility].It has not been cleared or approved by the FDA.The FDA has determined that such clearance or approval is not necessary. Performing Organization Address City/State/Zipcode Phone Number [facility] RESULTS * NM CT CHEST W CONTRAST (01/29/2018 10:40 AM) Impressions Performed At 1.Prominent mediastinal lymph nodes that were not hypermetabolic on same day [facility] RES[facility] PET/CT, likely reactive. 2.Small right pulmonary nodules, which are indeterminate but may represent scars or noncalcified granulomas. Continued follow-up is recommended. 3.Mild emphysema with scattered areas of scarring. 4.Moderate calcified coronary artery disease. Finalized by Lexy Hayes M.D. on 01/29/2018 11:42 AM. Dictated by Lexy Hayes M.D. on 01/29/2018 11:32 AM. Narrative Performed At CT CHEST [facility] RESULTS Clinical Indication:Female, 67 years old. Cancer of floor of mouth. Evaluate for metastatic disease. Technique: Multiple contiguous axial CT images were obtained through the chest following the administration of IV contrast. Post processing coronal and sagittal reconstruction images were made from the axial images. IV contrast: Isovue-370 Comparison: PET/CT of same date. FINDINGS: Lower Neck: Unremarkable Axilla, Mediastinum and Yolanda: There are prominent mediastinal lymph nodes. There is no axillary or hilar lymphadenopathy. Heart and Great Vessels: Heart size is normal without pericardial effusion. There is moderate calcified coronary artery disease. There is mild calcification of the aortic valve. The great vessels are normal in caliber. Airway, Lungs and Pleura: There is a small amount of debris in the trachea. There is mild centrilobular emphysema with scattered areas of scarring. There are small right-sided pulmonary nodules (series 2 images 24 and 32). There is linear atelectasis or scarring in the medial left lower lobe. There is no pleural effusion. Upper Abdomen: There is mild dependent sludge or cholelithiasis. Chest Wall and Osseous Structures: There is thoracolumbar spondylosis. No aggressive osseous lesions are noted. Procedure Note Interface, Radiant Results - 01/29/2018 11:[address] CHEST Clinical Indication: Female, 67 years old. Cancer of floor of mouth. Evaluate for metastatic disease. Technique: Multiple contiguous axial CT images were obtained through the chest following the administration of IV contrast. Post processing coronal and sagittal reconstruction images were made from the axial images. IV contrast: Isovue-370 Comparison: PET/CT of same date. FINDINGS: Lower Neck: Unremarkable Axilla, Mediastinum and Yolanda: There are prominent mediastinal lymph nodes. There is no axillary or hilar lymphadenopathy. Heart and Great Vessels: Heart size is normal without pericardial effusion. There is moderate calcified coronary artery disease. There is mild calcification of the aortic valve. The great vessels are normal in caliber. Airway, Lungs and Pleura: There is a small amount of debris in the trachea. There is mild centrilobular emphysema with scattered areas of scarring. There are small right-sided pulmonary nodules (series 2 images 24 and 32). There is linear atelectasis or scarring in the medial left lower lobe. There is no pleural effusion. Upper Abdomen: There is mild dependent sludge or cholelithiasis. Chest Wall and Osseous Structures: There is thoracolumbar spondylosis. No aggressive osseous lesions are noted. IMPRESSION 1. Prominent mediastinal lymph nodes that were not hypermetabolic on same day PET/CT, likely reactive. 2. Small right pulmonary nodules, which are indeterminate but may represent scars or noncalcified granulomas. Continued follow-up is recommended. 3. Mild emphysema with scattered areas of scarring. 4. Moderate calcified coronary artery disease. Finalized by Lexy Hayes M.D. on 01/29/2018 11:42 AM. Dictated by Lexy Hayes M.D. on 01/29/2018 11:32 AM. Performing Organization Address City/State/Zipcode Phone Number [facility] RESULTS * NM CT NECK W CONTRAST (01/29/2018 10:40 AM) Impressions Performed At 1.No mass or lymphadenopathy. The reported oral cavity mass lesion is not [facility] RESULTS appreciated on this examination. 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 Finalized by MELISSA PURVIS M.D. on 01/29/2018 3:30 PM. Dictated by MELISSA PURVIS M.D. on 01/29/2018 2:06 PM. Narrative Performed At CT Neck with Contrast [facility] RESULTS Clinical Indication: Female, 67 years old. Cancer floor of mouth. Technique: Multiple contiguous axial images were obtained through the neck following the administration of IV contrast material. Post processing coronal and sagittal reconstruction images were made from the axial images. Comparison: PET scan from same day. Findings: Brain and Orbits: There is asymmetric prominence of the left sylvian fissure likely from remote insular infarct. Sinuses and Mastoids: Normal. Suprahyoid Neck: The reported floor of mouth lesion is not identified. Normal visualized oral cavity and adjacent mandible. Infrahyoid Neck: Normal larynx, hypopharynx, and supraglottis. Lymph Nodes: Normal. Parotid and Submandibular Glands: Normal. Thyroid: Normal. 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 Osseous Structures: Cervical spondylosis without a destructive osseous lesion. Thoracic inlet: Bilateral pulmonary scarring. Procedure Note Interface, Radiant Results - 01/29/2018 3:[address] Neck with Contrast Clinical Indication: Female, 67 years old. Cancer floor of mouth. Technique: Multiple contiguous axial images were obtained through the neck following the administration of IV contrast material. Post processing coronal and sagittal reconstruction images were made from the axial images. Comparison: PET scan from same day. Findings: Brain and Orbits: There is asymmetric prominence of the left sylvian fissure likely from remote insular infarct. Sinuses and Mastoids: Normal. Suprahyoid Neck: The reported floor of mouth lesion is not identified. Normal visualized oral cavity and adjacent mandible. Infrahyoid Neck: Normal larynx, hypopharynx, and supraglottis. Lymph Nodes: Normal. Parotid and Submandibular Glands: Normal. Thyroid: Normal. 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 Osseous Structures: Cervical spondylosis without a destructive osseous lesion. Thoracic inlet: Bilateral pulmonary scarring. IMPRESSION 1. No mass or lymphadenopathy. The reported oral cavity mass lesion is not appreciated on this examination. 2. 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 Finalized by MELISSA PURVIS M.D. on 01/29/2018 3:30 PM. Dictated by MELISSA PURVIS M.D. on 01/29/2018 2:06 PM. Performing Organization Address City/State/Zipcode Phone Number [facility] RESULTS * NM PET SCAN TORSO (SKULL-THIGHS) (01/29/2018 10:38 AM) Impressions Performed At 1. No evidence of a discrete hypermetabolic mass involving the floor of mouth. [facility] RESULTS 2. No PET/CT evidence of metastatic disease. 3. Asymmetric increased left palatine tonsillar and base of tongue hypermetabolism which may be inflammatory, though correlation with primary site of squamous cell carcinoma is suggested. Finalized by Gigi Clark M.D. on 01/29/2018 11:11 AM. Dictated by Gigi Clark M.D. on 01/29/2018 10:44 AM. Narrative Performed At PET/CT NECK, CHEST, ABDOMEN AND PELVIS [facility] RESULTS Radiopharmaceutical:16.5 mCi F-18 Fluorodeoxyglucose (FDG) IV. Clinical Indication:67-year-old woman with squamous cell carcinoma of floor of mouth, staging. Technique: Beginning approximately 60 minutes after tracer administration, routine whole body PET/CT imaging was performed from the skull base to proximal thighs. PET images were reviewed in standard orthogonal projections. Low dose non-contrast CT imaging was performed for attenuation correction and localization purposes. The current mean hepatic SUV (reported for quality control scientist purposes) is 2.5. Blood glucose level (at the time of radiopharmaceutical administration): 87 mg/dL Comparison: Current day CT neck and chest. 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 There is linear physiologic muscular uptake within the prevertebral muscles. There is asymmetric increased uptake within the left glossopharyngeal sulcus with a maximum SUV of 7.4 (image 55, index 167). There is linear extension of increased FDG uptake across midline at the base of tongue with a maximum SUV of 8.3 (image 52, index 190). There is mild ill-defined FDG uptake within the anterior oral cavity without a discrete hypermetabolic floor of mouth lesion. There is no hypermetabolic cervical lymphadenopathy. Chest: No suspicious hypermetabolic lesion(s). There is mild focal hypermetabolism at the gastroesophageal junction which may be secondary to esophagitis. Abdomen/Pelvis: No suspicious hypermetabolic lesion(s). Osseous Structures: No suspicious hypermetabolic lesion(s). Additional CT findings: Subsegmental atelectasis and/or scarring within the right lung base. Coronary artery calcifications. Scattered atherosclerotic calcifications of the thoracic aorta. Prior bilateral common iliac artery stenting. Partial obstruction of the pelvic soft tissues secondary to beam hardening artifact related to right total hip arthroplasty. Procedure Note Interface, Radiant Results - 01/29/2018 11:15 AM CDT PET/CT NECK, CHEST, ABDOMEN AND PELVIS Radiopharmaceutical: 16.5 mCi F-18 Fluorodeoxyglucose (FDG) IV. 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 Technique: Beginning approximately 60 minutes after tracer administration, routine whole body PET/CT imaging was performed from the skull base to proximal thighs. PET images were reviewed in standard orthogonal projections. Low dose non-contrast CT imaging was performed for attenuation correction and localization purposes. The current mean hepatic SUV (reported for quality control scientist purposes) is 2.5. Blood glucose level (at the time of radiopharmaceutical administration): 87 mg/ dL Comparison: Current day CT neck and chest. 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 There is linear physiologic muscular uptake within the prevertebral muscles. There is asymmetric increased uptake within the left glossopharyngeal sulcus with a maximum SUV of 7.4 (image 55, index 167). There is linear extension of increased FDG uptake across midline at the base of tongue with a maximum SUV of 8.3 (image 52, index 190). There is mild ill- defined FDG uptake within the anterior oral cavity without a discrete hypermetabolic floor of mouth lesion. There is no hypermetabolic cervical lymphadenopathy. Chest: No suspicious hypermetabolic lesion(s). There is mild focal hypermetabolism at the gastroesophageal junction which may be secondary to esophagitis. Abdomen/Pelvis: No suspicious hypermetabolic lesion(s). Osseous Structures: No suspicious hypermetabolic lesion(s). Additional CT findings: Subsegmental atelectasis and/or scarring within the right lung base. Coronary artery calcifications. Scattered atherosclerotic calcifications of the thoracic aorta. Prior bilateral common iliac artery stenting. Partial obstruction of the pelvic soft tissues secondary to beam hardening artifact related to right total hip arthroplasty. IMPRESSION 1. No evidence of a discrete hypermetabolic mass involving the floor of mouth. 2. No PET/CT evidence of metastatic disease. 3. Asymmetric increased left palatine tonsillar and base of tongue hypermetabolism which may be inflammatory, though correlation with primary site of squamous cell carcinoma is suggested. Finalized by Gigi Clark M.D. on 01/29/2018 11:11 AM. Dictated by Gigi Clark M.D. on 01/29/2018 10:44 AM. Performing Organization Address City/State/Zipcode Phone Number RAD RESULTS * POC GLUCOSE (01/29/2018 7:46 AM) Glucose, POC 82 70 - 100 MG/DL MAIN LAB Performing Organization Address City/[facility] Phone Number [facility] LAB [address] [place] [address] * ECG-SCAN (01/26/2018 7:35 AM) Narrative Performed At Ordered by an unspecified provider. 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 2.Successful AVN Modification/ Slow Pathway Ablation. 3. At the completion of the procedure, No slow pathway function was present and no inducible arrhythmias despite isuprel administration. PLAN: -We will monitor the patient overnight in the hospital with plans for discharge in the morning -Pain control as needed -Stop Diltiazem today. -Stop Eliquis -Discussed Linq implantation with Dr. Fong as outpatient -Follow-Up with Primary Supervisor [employer] in Dr. Fong in 1 month and with me, Dr. Ruiz--as needed or per Dr. Fong's recommendations. Narrative Performed At OTHER OUTSIDE LAB PROCEDURE: AV Node Modification-AVNRT RFA --Comprehensive EP study with coronary sinus catheter placement. --Acute drug testing Isuprel --Three-dimensional electroanatomic mapping using Ensite NavX. --Moderate sedation. 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 DRIFT MINER:Pranav P. Emert, M.D. COMPUTER AIDE: NONE DATE:01/21/2018 INDICATION FOR PROCEDURE:Recurrent SVT BRIEF SUMMARY: Unfortunately the patient took her morning diltiazem the morning of the procedure At baseline patient had relative hypotension prior to the procedure.At times her SBP was in the 70-80 mmHg range.Again it was before the procedure was initiated but with a little sedation.She received 2 boluses of IV normal saline and her blood pressure recovered completely into the 110 mmHg range.No further issues arise.I am we did keep her awake for part of the procedure when utilizing Isuprel up to 5 mcg/min to try and induce SVT. 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 No evidence of accessory pathway. No inducible atrial tachycardia or atrial flutter. RF applied to the slow pathway region resulting in elimination of slow pathway function.Post Isuprel 5 mcg/min showed no evidence of dual AV jovan physiology. Patient tolerated procedure well. CONSENT: The risks, benefits, indications and alternatives to the procedure were explained in detail with the patient and discussed at length prior to the procedure. The patient expressed understanding of the risks and consented to the procedure. All questions asked were answered and all permits were signed.The patient was transported to the Electrophysiology Laboratory in a non-sedated state and was placed supine on the fluoroscopy table. SEDATION: The patient underwent moderate sedation using Versed and Fentanyl administered by a trained Registered Nurse whom I supervised. Continuous blood pressure, heart rate and O2 saturation monitoring with supplemental oxygen as needed was utilized throughout the procedure. ANESTHESIA: Marcaine 0.25% was injected into subcutaneous tissue for local anesthesia. OTHER MEDICATIONS: Isuprel at a maximum of 5 mcg/min was used with programmed stimulation. ACCESS: The left and right groins were prepped and draped in a sterile fashion. Marcaine 0.25% was injected into the subcutaneous tissue overlying the right and left femoral veins. The right and left femoral veins were accessed using the modified Seldinger technique with placement of sheaths and catheters as described below. CATHETERS USED: 1.EP Melanie-curve hexapolar catheter placed via access with a 6 [place] sheath in the left femoral vein and advanced to the right ventricular apex. 2.EP His-curve quadrapolar catheter placed via access with a 6 [place] sheath in the left femoral vein and advanced to the His position. 3.EP Melanie-curve quadrapolar catheter placed via access with a 6 [place] sheath in the left femoral vein and advanced to the high right atrium. 4.EP decapolar deflectable catheter placed via access with a 6 [place] sheath in the right femoral vein and advanced to the coronary sinus. 5.4.0 mm [id number] EPTmapping/ablation catheter placed via access with a 7 [place] sheath in the right femoral vein and advanced to the right atrium to be used for mapping and ablation. DETAILS OF PROCEDURE: Electrophysiology Study & Programmed Stimulation: Following insertion of catheters as above, baseline measurements were obtained and programmed stimulation was performed as described below. Programmed extra stimulation was performed with evidence of dual AV ojvan physiology and to echo beats. Isuprel was started initially at 2 mcg/min without significant response and then 5 mcg/min.After Isuprel effect was noted, EP study was performed.Nonsustained SVT typical AVNRT was reproducibly induced. We then performed ablation in the area of the slow pathway as described below. Following ablation, a repeat EP study was performed.We then started Isuprel at 5 mcg/min.After Isuprel effect was noted, an EP sudy was again performed.No evidence of dual AV jovan physiology was found post ablation on Isuprel 5 mcg/min EP STUDY FINDINGS: Programmed Stimulation: 1.Incremental Atrial pacing. 2.Incremental Ventricular. 3.Single and double atrial extra stimuli were performed at drive trains of600, 500 msec. 4.Single ventricular extra stimuli were performed at drive train of 600 msec. Baseline Measurements: Initial:Sinus rhythm, cycle length 1070 msec, P-R 166 msec, QRS 102 msec, Q-T 470 msec. Final:Sinus rhythm, cycle length 640 (Isuprel just stopped) msec, P-R 164 msec, QRS 102 msec, Q-T 351 msec. Sinus Node Function: The patient was in normal sinus rhythm at the beginning of the procedure. AV Jovan Function: --A-H interval at baseline was 95 msec at beginning of procedure. --Anterograde AV Wenckebach -Baseline: 680 ms -Baseline with Isuprel at 5 mcg/min: 380 ms; with shift of the slow pathway very early -Post RFA with Isuprel at 5 mcg/min: 410 ms with no evidence of slow pathway --Retrograde AV Wenckebach: -Baseline:620 -Baseline with Isuprel at 5 mcg/min:280 -Post RFA with Isuprel at 5 mcg/min:260 --Antegrade AVN ERP: -Baseline: 800/660 ms -Baseline with Isuprel at 5 mcg/min: 600/320 ms 500/400/ 320 ms-->Recurrent NS SVT Jumps and Echos: 600/340 down to 220 ms had recurrent echo beats varying from 1-2 SVT Induced at 500/400/320 MS ms -Post RFA with Isuprel at 5 mcg/min: 600/280 ms 500/400/380 ms (as above previously SVT at 500/400/320 ms) Jumps and Echos: NONE No remnant slow pathway was present. No SVT could be induced post RFA despite aggressive programmed stimulation and isuprel administration. --Retrograde AVN ERP: -Baseline: 800/500 ms Jumps and Echos: NONE -Baseline with Isuprel at 5 mcg/min: 600/< 200 ms Jumps and Echos: None -Post RFA with Isuprel at 5 mcg/min: 500/< 210 ms Jumps and Echos: None Atrial Function: A.Atrial ERP: Baseline:800/280 Baseline with Isuprel at 5 mcg/min:600/210 Post RFA with Isuprel at 5 mcg/min:600/<250 ms B.No atrial tachycardia occurred despite programmed stimulation. His Purkinje System Function: A.H-V interval at baseline was 54 msec and was without significant change post RFA. There was no block below the His noted during testing. Accessory Pathway: No evidence of an accessory pathway was noted--with concentric and decremental antegrade and retrograde conduction via the AVN. ARRHYTHMIAS, MAPPING AND ABLATION: Arrhythmias Induced: A.Typical ANRT--Non-Sustained -SVT BM=183 -Induction:500/400/320 ms on 5 mcg/min of Isuprel -Termination:spontaneous -Earliest RG atrial activation was the HBE-A -During SVT the IC=514 ms; -During SVT the VA time=11 ms Mapping and Ablation: We advanced the EPT [id number] mapping/ablation catheter to the right atrium, and the His and AV node were mapped extensively using the intracrdiac 3-D mapping system and the HIS region was identified and displayed on the [employer] NavX mapping system. Applications of RF energy were delivered in the posterior-septal area of the slow pathway region just superior and anterior to the CS os.Ablation induced accelerated junctional rhythm/beats. We then repeated EP study at baseline and at 5 mcg/min of Isuprel.We were not able to induce tachycardia. No remnant slow pathway was present. No SVT could be induced post RFA despite aggressive programmed stimulation and isuprel administration. Completion of Study: The catheters were then removed and the patient was transported to the outpatient holding area with plans for removal of the sheaths with manual pressure held until adequate hemostasis was noted. The patient tolerated the procedure well. No adverse events were noted at the end of the study. Performing Organization Address City/State/[facility] Phone Number OTHER OUTSIDE LAB * CBC AND DIFF (01/07/2018 12:22 PM) Hemoglobin 14.60 (H) 12.00 - 14.00 g/dL [facility] Hematocrit 43.90 37.00 - 51.00 % [facility] Platelet Count 324 140 - 440 K/uL [facility] White Blood Cells 10.6 4.0 - 11.0 K/uL [facility] Neutrophils 46.5 37.0 - 92.0 % [facility] Absolute Neutrophil Count 5.0 2.0 - 7.8 [facility] Lymphocytes 41.9 10.0 - 58.5 % [facility] Absolute Lymph Count 4.4 (H) 0.6 - 4.1 [facility] Mid% (Cells not Lym or 11.6 0.1 - 24.0 % [facility] Seg) Mid# (Cells not Lym or 1.2 0.0 - 1.8 [facility] Seg) RBC 4.62 4.20 - 6.30 M/uL [facility] MCV 95 80 - 97 fL [facility] MCH 32 26 - 32 pg [facility] MCHC 33 31 - 36 g/dL [facility] RDW 13.8 11.5 - 14.5 % [facility] Performing Organization Address City/State/[facility] Phone Number [facility] [id number] [facility], [facility] [address] [place] [address] * ECG/QRS (01/07/2018 10:56 AM) QRS DURATION 84 OTHER OUTSIDE LAB Performing Organization Address City/State/Zipcode Phone Number OTHER OUTSIDE LAB from Last 3 Months
--- OUTSIDE RECORDS SUMMARY | 2018-03-18 19:57 | XMS REPORT | Encounter Summary ---
Author Author [facility] Organization [facility] Address Unknown Phone Unavailable Care Team Providers Care Learn To Swim Instructor Name Role Phone Darling Cespedes Domenica DO Unavailable Unavailable Herman Castrejon PHARMD Unavailable Unavailable Didi Louie MANAGER INTERMEDIATE PCP Reason for Visit * Reason Comments Post Operative Visit s/p FOM resection, partial glossectomy, complex vestibuloplasty and bilateral MRND on 02/15/18 Encounter Details Date Type Department Care Team Description 02/22/2018 Office Visit [facility] Herman Ramos PA-C Oral cancer (HCC) Physicians - ENT [address] (Primary Dx); Ortho and Medical [place] [address] Cancer of oral cavity [address] [place] [address] (HCC) [address] [facility] [phone] [place] [address] Social History Tobacco Use Types Packs/Day Years Used Date Former Smoker Cigarettes 2 20 Quit: 05/28/2015 Smokeless Tobacco: Never Used Alcohol Use Drinks/Week oz/Week Comments No used to have 10-12 beers/day;10 shots/week quit 2003 Sex Assigned at Date Recorded Not on file as of this encounter Last Filed Vital Signs Vital Sign Reading Time Taken Blood Pressure 127/65 02/22/2018 10:42 AM CDT Pulse 74 02/22/2018 10:42 AM CDT Temperature - - Respiratory Rate - - Oxygen Saturation - - Inhaled Oxygen - - Concentration Weight 81.6 kg (180 lb) 02/22/2018 10:42 AM CDT Height 157.5 cm (5' 2") 02/22/2018 10:42 AM CDT Body Mass Index 32.92 02/22/2018 10:42 AM CDT in this encounter Functional Status Functional Status Response Date of Assessment Does the patient have a hearing impairment: No 02/16/2018 as of this encounter Progress Notes * Herman Ramos PA-C - 02/22/2018 11:00 AM CDT HPI: Lona Coburn was seen 02/22/2018 [facility] for postop follow up visit s/p FOM resection, partial glossectomy, complex vestibuloplasty and bilateral MRND on 02/15/18. She is doing well. Here today for suture removal. Accompanied by her daughter today. No fever. No drainage from her incision. No bleeding from the OC. Pt. has PEG in place due to trouble swallowing. No concerns. Requesting refill of pain meds. The pathology revealed Final Diagnosis: A. 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 ([id number]). --------- LIP AND ORAL CAVITY: Excisional Biopsy, [...] from closest margin (millimeters): 3 mm Specify margin: Posterior Tumor Bed (Separately Submitted) Margins: Uninvolved by high-grade dysplasia/in situ disease All final separately submitted margins are negative Tumor Bed (Separately Submitted) Margin Orientation (required for squamous cell carcinomas only): N/a Lymphovascular Invasion: Not identified Perineural Invasion: Not identified Worst Pattern of Invasion (WPOI): N/a Lymph Node Examination: Number of Lymph Nodes Involved: 0 Number of Lymph Nodes Examined: 44 Laterality of Lymph Nodes Involved: N/a Extranodal Extension (GUILLERMO): N/a Pathologic Stage Classification (pTNM, AJCC 8th Edition) Note: Reporting of pT, pN, and (when applicable) pM categories is based on information available to the pathologist at the time the report is issued. pTis N0 Mn/a For All Carcinomas Primary Tumor (pT): pTis: Carcinoma in situ Regional Lymph Nodes (pN): pN0: No regional lymph node metastasis Distant Metastasis (pM): N/a PE: BP 127/65 | Pulse 74 | Ht 157.5 cm (62") | Wt 81.6 kg (180 lb) | BMI 32.92 kg/m Physical exam including head and neck examination of the oral cavity and oropharynx as well as inspection and palpation of the face, parotid and neck is remarkable for findings consistent with posttreatment postoperative changes and negative for new lesions, masses or lymphadenopathy. Healing well. No active infection. Airway is adequate. Sutures removed today. Bruising down her chest is visible. Tongue is swollen with moderate crusting on the dorsal tongue and 2 white plaque on the left buccal mucosa. IMPRESSION:Overall, Ms. Coburn is doing well, healing well, and appears clinically free of disease. PLAN:We will see her in [address] Russo. Will arrange swallow test close to home. Pt. has hx of stroke with made it difficult to swallow and has now had tongue surgery. She will use PEG until she passes swallow test safetly. Pathology without any residual invasive cancer. 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 Recommend observation at this point. TisN0 on surgical path. Pathology was reviewed with the pt. and a copy of their pathology report was given to them today. Diflucan for thrush. Refill of pain meds. (I printed the script 2 times because I could not find it the first time I printed it; I ultimately shredded the 2nd copy). She can have PEG removed if after she passes her video swallow she does not lose any weight with nutrition PO only. All questions and concerns were addressed today and the pt. was encouraged to call with any further that may arise. 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
--- OUTSIDE RECORDS SUMMARY | 2018-03-18 19:57 | XMS REPORT | Encounter Summary ---
Author Author [facility] Organization [facility] Address Unknown Phone Unavailable Care Team Providers Care Data Integration Developer Name Role Phone RubinaDarling Domenica DO Unavailable Unavailable Herman Castrejon PHARMD Unavailable Unavailable Didi Louie SWEET POTATO DISINTEGRATOR PCP Reason for Visit * Reason Comments Follow-up Phone Call Encounter Details Date Type Department Care Team Description 02/23/2018 Telephone [facility] Herman Ramos PA-C Follow- up Phone Call Physicians - ENT [address] Ortho and Medical [place] [address] [place] [address] [phone] [place] [address] Social History Tobacco Use Types Packs/Day Years Used Date Former Smoker Cigarettes 2 20 Quit: 05/28/2015 Smokeless Tobacco: Never Used Alcohol Use Drinks/Week oz/Week Comments No used to have 10-12 beers/day;10 shots/week quit 2003 Sex Assigned at Date Recorded Not on file as of this encounter Functional Status Functional Status Response Date of Assessment Does the patient have a hearing impairment: No 02/16/2018 as of this encounter Miscellaneous Notes * Telephone Encounter - Herman Ramos PA-C - 02/23/2018 9:32 AM CDT Pts. daughter, Jaclyn, does not want to drive her mom back up to next week for video swallow and inquires if they can have this done close to home. I personally called [facility] in [place], [place] and faxed video swallow orders there for pt. to have scheduled for next week. Daughter was very appreciative. Pt. has cancer surveillance follow up with Dr. Russo already scheduled. [facility] is to fax me the results of the video swallow. Pts. daughter is to call to get her mom scheduled through [facility]. I will cancel video swallow here that is scheduled per request. Herman Ramos PA-C in this encounter Plan of Treatment Not on fileas of this encounter Visit Diagnoses Not on filein this encounter
--- OUTSIDE RECORDS SUMMARY | 2018-03-18 19:57 | XMS REPORT | Encounter Summary ---
Author Author [facility] Organization [facility] Address Unknown Phone Unavailable Care Team Providers Care Trim Stencil Maker Name Role Phone RubinaDarling Domenica DO Unavailable Unavailable Herman Castrejon PHARMD Unavailable Unavailable Didi Louie DIGITAL PRODUCT MANAGER PCP Reason for Referral * Radiology Services (Routine) Status Reason Specialty Diagnoses / Referred By Referred To Procedures Contact Contact No Auth Needed Radiology Diagnoses Hesham Russo, [facility] Oropharyngeal MD [facility] 2nd dysphagia [address] rocedures [place] [address] [place], [place] [address] SERIES [address] Phone: Encounter Details Date Type Department Care Team Description 02/19/2018 Orders Only [facility] Hesham Russo MD Oropharyngeal dysphagia Physicians - ENT [address] (Primary Dx) Ortho and Medical [place] [address] [place] [address] [phone] [place] [address] Social History Tobacco Use Types [...] impairment: No 02/16/2018 as of this encounter Plan of Treatment Name Priority Associated Diagnoses Order Schedule ENT SPEECH VIDEO SWALLOW Routine Oropharyngeal dysphagia Expected: 02/19, Expires: 02/19/2019 SWALLOW MOTION SERIES Routine Oropharyngeal dysphagia Expected: 2017 (Approximate), Expires: 02/19/2019 as of this encounter Visit Diagnoses Diagnosis Oropharyngeal dysphagia - Primary Dysphagia, oropharyngeal phase
--- OUTSIDE RECORDS SUMMARY | 2018-03-18 19:57 | XMS REPORT | Encounter Summary ---
Author Author [facility] Organization [facility] Address Unknown Phone Unavailable Care Team Providers Care Sap Fico Architect Name Role Phone Darling Cespedes Domenica DO Unavailable Unavailable Herman Castrejon PHARMD Unavailable Unavailable Didi Louie ASSOCIATE PROFESSOR OF PHILOSOPHY PCP Reason for Visit * Reason Comments Other Speak to nurse Encounter Details Date Type Department Care Team Description 03/09/2018 Telephone [facility] Hesham Russo MD Other ( Speak to nurse) Physicians - ENT [address] Ortho and Medical [place] [address] [place] [address] [phone] [place] [address] Social History Tobacco Use Types [...] encounter Miscellaneous Notes * Telephone Encounter - Ken Brambila - 03/09/2018 2:27 PM CDT Order for durable medical equipment needed Dr Russo's signature. [place] [phone] and it can be faxed back with signature at [phone]. in this encounter Plan of Treatment Not on fileas of this encounter Visit Diagnoses Not on filein this encounter
--- OUTSIDE RECORDS SUMMARY | 2018-03-18 19:58 | XMS REPORT | Encounter Summary ---
Author Author [facility] Organization [facility] Address Unknown Phone Unavailable Care Team Providers Care Numerical Control Tool Programmer Name Role Phone Darling Cespedes DO Unavailable Unavailable Herman Castrejon PHARMD Unavailable Unavailable Didi Louie APRN PCP Encounter Details Date Type Department Care Team Description 02/15/2018 Procedure [facility] Operating Room [address] [place] [address] Social History Tobacco Use Types Packs/Day Years Used Date Former Smoker Cigarettes 2 20 Quit: 05/28/2015 Smokeless Tobacco: Never Used Alcohol Use Drinks/Week oz/Week Comments No used to have 10-12 beers/day;10 shots/week quit 2003 Sex Assigned at Date Recorded Not on file as of this encounter Plan of Treatment Not on fileas of this encounter Visit Diagnoses Not on filein this encounter
--- OUTSIDE RECORDS SUMMARY | 2018-03-18 19:58 | XMS REPORT | Encounter Summary ---
Author Author [facility] Organization [facility] Address Unknown Phone Unavailable Care Team Providers Care Senior Ios Developer Name Role Phone Darling Cespedes DO Unavailable Unavailable Herman CastrejonD Unavailable Unavailable Didi Louie NET SQL DEVELOPER PCP Reason for Visit * Auth/Cert Status Reason Specialty Diagnoses / Referred By Referred To Procedures Contact Contact Diagnoses Oral cancer (HCC) Oral cancer (HCC) [C06.9] P rocedures MN CERVICAL LYMPHADEC MODIFIED RADICAL NECK DSJ MN GLSSC COMPOSIT RESCJ FLR MNDBLR RESCJ & RAD NECK MN SPLIT AGRFT F/S/N/H/F/G/M/D GT 1ST 100 CM/</1 % CERVICAL LYMPHADENECTOMY COMPOSITE RESECTION WITH NECK DISSECTION Face STSG Encounter Details Date Type Department Care Team Description 02/15/2018 Hospital SD6 Gopi Mott MD Oral cancer (HCC) - Encounter [id number] 02/19/2018 [place] [address] [address] [place], [place] [id number] Social History Tobacco Use Types Packs/Day Years Used Date Former Smoker Cigarettes 2 20 Quit: 05/28/2015 Smokeless Tobacco: Never Used Alcohol Use Drinks/Week oz/Week Comments No used to have 10-12 beers/day;10 shots/week quit 2003 Sex Assigned at Date Recorded Not on file as of this encounter Last Filed Vital Signs Vital Sign Reading Time Taken Blood Pressure 144/64 02/19/2018 10:00 AM CDT Pulse 80 02/19/2018 10:00 AM CDT Temperature 37.1 C (98.7 F) 02/19/2018 10:00 AM CDT Respiratory Rate - - Oxygen Saturation 93% 02/19/2018 10:00 AM CDT Inhaled Oxygen - - Concentration Weight 85.9 kg (189 lb 6.4 oz) 02/15/2018 10:05 AM CDT Height 160 cm (5' 3") 02/15/2018 10:05 AM CDT Body Mass Index 33.55 02/15/2018 10:05 AM CDT in this encounter Functional Status Functional Status Response Date of Assessment Does the patient have a hearing impairment: No 02/16/2018 as of this encounter Discharge Summaries * Dolores Blue APRN-NP - 02/19/2018 1:25 PM CDT Formatting of this note may be different from the original. Physician Discharge Summary Name: Lona Rollins Date Of : 1950 Age: 67 years Admit date: 02/15/2018 Discharge date: 04/2018 Attending Physician: Dr. Mott Service: Otolaryngology-Head & Neck Physician Summary completed by: NOÉ Swanson Reason for hospitalization: Lona Rollins is a 67 y.o. femalewith history of oral cancer admitted for Floor of mouth resection , Partial glossectomy Significant PMH: Past Medical History: Diagnosis Date Alcoholism (HCC) quit 2003 Anxiety disorder Arthritis Carotid artery stenosis left occludded COPD with emphysema (HCC) Depression High cholesterol Oral cancer (HCC) PSVT (paroxysmal supraventricular tachycardia) (HCC) had ablation Rheumatoid arthritis (HCC) Seasonal allergic reaction Skin cancer of eyelid Stroke (HCC) 2014 Tobacco abuse Allergies: Levaquin [levofloxacin] and Rocephin [ceftriaxone] Admission Physical Exam notable for: PHYSICAL EXAM: Vital Signs: BP 150/67 | Pulse 73 | Ht 157.5 cm (62") | Wt 87.1 kg (192 lb) | BMI 35.12 kg/m General: Well-developed, well-nourished Communication and Voice: Clear pitch and clarity Hearing: Hearing adequate for verbal communication bilaterally Inspection: Normocephalic and atraumatic without mass or lesion Palpation: Facial skeleton intact without bony stepoffs Parotid Glands: No mass or tenderness Facial Strength: Facial motility symmetric and full bilaterally Pinna: External ear intact and fully developed External canal: Canal is patent with intact skin Tympanic Membrane: Clear and mobile External nose: No scar or anatomic deformity Internal Nose: Septum intact and midline. No edema, polyp, or rhinorrhea. TMJ: No pain to palpation with full mobility Oral cavity, Lips, Teeth, and Gums: Mucosa and teeth intact and viable; small mass noted in floor of mouth right Oropharynx: No erythema or exudate, no masses or ulcerations, non-obstructive tonsils Nasopharynx: No mass or lesion with intact mucosa Hypopharynx: No masses or ulcerations, normal mucosa without pooling of secretions Larynx: Normal supraglottic and glottic structures without masses or ulcerations, normal vocal fold mobility Neck, Trachea, Lymphatics: Midline trachea without mass or lesion, no lymphadenopathy Thyroid: No mass or nodularity Eyes: No nystagmus with equal extraocular motion bilaterally Neuro/Psych/Balance: Patient oriented and appropriate in interaction; Appropriate mood and affect; Gait is intact with no imbalance; Cranial nerves I -XII are intact Respiratory effort: Equal inspiration and expiration without stridor Peripheral Vascular: Warm extremities with equal pulses Admission Lab/Radiology studies notable for: PATHOLOGY CONSULTATION NAME: LONA ROLLINS SURG PATH #: [id number] MR #: [id number] ALT ID #: LOCATION: [facility] DATE OF PROCEDURE: 01/29/2018 AGE: 67 SEX: F DATE RECEIVED: 01/29/2018 : 1950 TIME RECEIVED: 11:08 PHYSICIAN: GOPI MOTT MD DATE OF REPORT: 02/08/2018 COPY TO: DATE OF PRINTIN02/08/2018 OUTSIDE INSTITUTION: [facility] [address] [place] [address]. [place] [address] F: [phone] ######################################################################## Final Diagnosis: A. Outside case "[id number]" (Date collected: 01/02/18): 1. Squamous mucosa, "floor of mouth", biopsy: Invasive squamous cell carcinoma, moderately to poorly differentiated See comment. Comment: P16 immuno stain is performed on block A1 and is negative. 01/29/2018 PET PET/CT NECK, CHEST, ABDOMEN AND PELVIS Radiopharmaceutical: [...] current mean hepatic SUV (reported for quality compliance consultant purposes) is 2.5. Blood glucose level (at [...] site of squamous cell carcinoma is suggested. CT CHEST 01/29/2018 IMPRESSION 1. Prominent mediastinal lymph nodes that were not hypermetabolic on same day PET/CT, likely reactive. 2. Small right pulmonary nodules, which are indeterminate but may represent scars or noncalcified granulomas. Continued follow-up is recommended. 3. Mild emphysema with scattered areas of scarring. 4. Moderate calcified coronary artery disease. 01/29/2018 CT NECK IMPRESSION 1. No mass or lymphadenopathy. The reported oral cavity mass lesion is not appreciated on this examination. 2. 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 Brief Hospital Course: Lona Rollins is a 67 y.o. female with history of oral cancer who presented on 02/15/2018 for the operations listed below, which were completed without complication. The patient was admitted post-operatively for further management. The post-operative course was uneventful. Patient failed bedside PRODUCT/DEVICE TECHNOLOGIST swallow study did have Gtube placed. On day of discharge, patient had stable vital signs, with pain controlled, and tolerating tube feed diet. Please refer to operative procedure notes and daily progress notes for further detail. The patient will follow up in clinic with Dr. Mott Condition at Discharge: Stable Discharge Diagnoses: Hospital Problems Active Problems * (Principal)Oral cancer (HCC) Cancer of oral cavity (HCC) COPD (chronic obstructive pulmonary disease) (HCC) On home oxygen therapy Surgical Procedures: Floor of mouth resection Partial glossectomy Complex vestibuloplasty Bilateral modified radical neck dissection Gtube placement Significant Diagnostic Studies and Procedures: Final Diagnosis: A. 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 ([id number]). --------- LIP AND ORAL CAVITY: Excisional Biopsy, [...] the patient's clinical status and/or prior pathology. Consults: None Patient Disposition: Home with Home Health Care Patient instructions/medications: Driving Restrictions No driving while taking pain medication. Lifting Restrictions Do not lift more than 10 pounds for 2 week(s). Report These Signs and Symptoms Please contact your doctor if you have any of the following symptoms: temperature higher than 100 degrees F, uncontrolled pain, persistent nausea and/ or vomiting, difficulty breathing, chest pain, severe abdominal pain, headache, unable to urinate, unable to have bowel movement, drainage with a foul odor or redness or swelling at incision site Questions About Your Stay For questions or concerns regarding your hospital stay. Call [phone] Discharging attending physician: GOPI MOTT [[id number]] Tube Feeding 1 carton (250 mL) Isosource 1.5 (or equivalent) 5x per day with 60 mL free H20 before and after each bolus. Additional 150 mL free H20 BID between tube feeds. Home Care Instructions: *Please remember to flush/rinse tube with water or normal saline after feed. This will help prevent the tube from clogging. *Don't keep cans of formula open for more than 24 hours. *Stop feeding if you become nauseated or begin vomiting. Hold the next feeding for 1 hour. *Make sure you are sitting up during and after feeding. *Give bolus or syringe feeding over 20 minutes. Feedings given too fast can cause cramping and loose stools. Wound Care Keep wound clean and dry. Do not submerge under water. Incision Wounds: Wash hands before touching wound sites. Gently clean neck incision wounds with Q-tip dipped in a solution mixture made of equal amounts of hydrogen peroxide and water (half peroxide, half water) three times daily. Be sure to remove crusts and blood on the incision wounds with each cleaning. Apply Vaseline to wounds after each cleaning to prevent crusting. May shower over wounds (do not soak with water). Pat wounds dry after showering. If there are blue skin stitches in your wound, they are to stay in place until your follow-up appointment. Clear-colored skin stitches will dissolve from the wounds on their own. Oral Care: May gently rinse mouth with salt water rinses 3 times per day. Return Appointment You have a follow up appointment at our ENT clinic in the Medical Office Building on 02/22/2018 at 100 am with Bill Ramos PA-C . If you have any questions, need to be seen sooner or change your appointment please call M-F [phone] pm. If you have any questions not during office hours please call [phone] and ask for the ENT Resident recreation manager. Opioid (Narcotic) Safety Information OPIOID (NARCOTIC) PAIN MEDICATION SAFETY We care about your comfort, and believe you need opioid medications at this time to treat your pain. An opioid is a strong pain medication. It is only available by prescription for moderate to severe pain. Usually these medications are used for only a short time to treat pain, but sometimes will be prescribed for longer. Talk with your doctor or nurse about how long they expect you to need this medication. When used the right way, opioids are safe and effective medications to treat your pain, even when used for a long time. Yet, when used in the wrong way, opioids can be dangerous for you or others. Opioids do not work for everyone. Most patients do not get full relief of their pain from opioid medication; full relief of your pain may not be possible. For your safety, we ask you to follow these instructions: *Only take your opioid medication as prescribed. If your pain is not controlled with the prescribed dose, or the medication is not lasting long enough, call your doctor. *Do not break or crush your opioid medication unless your doctor or pharmacist says you can. With certain medications, this can be dangerous, and may cause . *Never share your medications with others, even if they appear to have a good reason. Never take someone else's pain medication-this is dangerous, and illegal (a crime). Overdoses and deaths have occurred. *Keep your opioid medications safe, as you would with escalera, in a lock box or similar container. *Make sure your opioids are going to be secure, especially if you are around children or teens. *Talk with your doctor or pharmacist before you take other medications. *Avoid driving, operating machinery, or drinking alcohol while taking opioid pain medication. This may be unsafe. Pain medications can cause constipation. Constipation is bowel movements that are less often than normal. Stools often become very hard and difficult to pass. This may lead to stomach pain and bloating. It may also cause pain when trying to use the bathroom. Constipation may be treated with suppositories, laxatives or stool softeners. A diet high in fiber with plenty of fluids helps to maintain regular, soft bowel movements. Current Discharge Medication List START taking these medications Details acetaminophen (TYLENOL) 160 mg/5 mL oral solution Take 20.3 mL via feeding tube every 4 hours as needed. Max of 4,000 mg of acetaminophen in 24 hours. Qty: 240 mL, Refills: 0 PRESCRIPTION TYPE: Print senna/docusate (SENOKOT-S) 8.6/50 mg tablet one tablet by Per G Tube route twice daily as needed. Qty: 60 tablet, Refills: 0 PRESCRIPTION TYPE: Print CONTINUE these medications which have been CHANGED or REFILLED Details pravastatin (PRAVACHOL) 10 mg tablet Take one tablet by mouth at bedtime daily. Per feeding tube Qty: 90 tablet, Refills: 3 PRESCRIPTION TYPE: No Print CONTINUE these medications which have NOT CHANGED Details apixaban (ELIQUIS) 5 mg tablet Take 5 mg by mouth twice daily. PRESCRIPTION TYPE: Historical Med aspirin EC 81 mg tablet Take 81 mg by mouth daily. Take with food. PRESCRIPTION TYPE: Historical Med cetirizine (ZYRTEC) 10 mg tablet Take 10 mg by mouth every morning. PRESCRIPTION TYPE: Historical Med Cholecalciferol (Vitamin D3) (VITAMIN D) 1,000 unit cap Take 1 capsule by mouth daily. PRESCRIPTION TYPE: Historical Med etanercept (ENBREL) 50 mg/mL (0.98 mL) injection Inject 50 mg under the skin every 7 days. PRESCRIPTION TYPE: Historical Med Lactobacillus acidophilus (PROBIOTIC PO) Take by mouth twice daily. PRESCRIPTION TYPE: Historical Med magnesium oxide (MAG-OX) 400 mg tablet Take 1 tablet by mouth daily. Qty: 180 tablet, Refills: 3 PRESCRIPTION TYPE: Normal Associated Diagnoses: AVNRT (AV jovan re-entry tachycardia) ([facility]); Palpitations montelukast (SINGULAIR) 10 mg tablet Take 10 mg by mouth at bedtime daily. PRESCRIPTION TYPE: Historical Med ranitidine(+) (ZANTAC) 150 mg tablet Take 150 mg by mouth twice daily. PRESCRIPTION TYPE: Historical Med sertraline (ZOLOFT) 50 mg tablet Take 50 mg by mouth daily. PRESCRIPTION TYPE: Historical Med SPIRIVA RESPIMAT 2.5 mcg/actuation inhaler Inhale 1 puff by mouth into the lungs daily. PRESCRIPTION TYPE: Historical Med SYMBICORT 160-4.5 mcg/actuation inhalation Inhale 2 puffs by mouth into the lungs twice daily. PRESCRIPTION TYPE: Historical Med traZODone (DESYREL) 50 mg tablet Take 100 mg by mouth at bedtime as needed for Sleep. PRESCRIPTION TYPE: Historical Med The following medications were removed from your list. This list includes medications discontinued this stay and those removed from your prior med list in our system lactobacillus rhamnosus (GG) (CULTURELLE) 10 billion cell cap oxyCODONE/acetaminophen (PERCOCET; ENDOCET; ROXICET) 5/325 mg tablet Scheduled appointments: Mar 01, 2018 12:00 PM CDT SWALLOW MOTION SERIES with GENERAL ROOM [id number] Radiology (Radiology) [facility] [address] [facility] [address] Mar 01, 2018 12:00 PM CDT VIDEO SWALLOW with Trena Hayes MA,CCC-PRODUCT/DEVICE TECHNOLOGIST [facility] ([facility]) [facility] Level [facility]c [address] [facility] [id number] Mar 01, 2018 2:00 PM CDT Return Patient with AURELIO NinoC [facility] (P ENT) [facility] Level [facility]c [address] [facility] [address] Apr 22, 2018 11:00 AM CDT Return Patient with Pranav Ruiz MD [facility] Cardiology ([facility]) [facility] [address] [facility] [address] Apr 23, 2018 1:45 PM CDT Return Patient with Gopi Mott MD [facility]NT ([facility]) [facility] Level [facility]c [address] [facility] [id number] Pending items needing follow up: Follow up ENT clinic Follow up swallow study 2 weeks Signed: Dolores Blue APRN-COMPLAINT INVESTIGATIONS OFFICER 02/22/2018 cc: Primary Care Physician: Didi Louie Verified Referring physicians: Didi Louie APRN Additional provider(s): in this encounter Discharge Instructions * Discharge Instr - Case Management - Francisca Orozco - 02/18/2018 11:20 AM CDT You are discharging with enteral feedings through: Via [facility] EN feeds be delivered on day of d/c P: [phone] Please call if you have questions regarding delivery/order of feedings. * Patient Instructions - Emma Macias RN - 02/17/2018 9:50 AM CDT Formatting of this note may be different from the original. Interventional Radiology Gastrostomy Tube (G-tube)Placement-Discharge Instructions A Gastrostomy tube or G-tube is a soft, narrow tube placed through the skin and stomach wall directly into the stomach. It is used to give feedings, fluids and medications. During or before the procedure, a small nasogastric tube is placed through your nose into your stomach in order to fill the stomach with air. This helps with tube placement and may make you feel full temporarily. Using fluoroscopy to guide placement, a small needle is placed through the skin and advanced into the stomach. In some cases, the tube may be advanced into the upper portion of the small intestines (the jejunum). These are then referred to as a G-J tube or a J-tube. You may also hear the tube referred to as a PEG which is a gastrostomy tube placed in an alternate manner using an endoscope. AFTER THE PROCEDURE: Your G-tube will be connected to a gravity drainage bag after placement. Keep bag connected for the first 12 hours post procedure. This is done to ensure the stomach remains decompressed and to identify any bleeding. Do not use the G-tube until 12 hours after the procedure. After 12 hours, you should disconnect the bag and begin using the tube by instilling small amounts of water (50-100ml) using a large feeding syringe. Feedings may begin 24 hours after the procedure, if water is tolerated. Be sure to flush G-tube with 50ml of water after each feeding. (Contact your referring physician for instructions on feeding.) You must flush your tube with at least 50ml water, twice daily until feedings start. POST-PROCEDURE ACTIVITY: A responsible adult must drive you home. You should not drive, operate heavy machinery or do anything that requires concentration for at least 24 hours after receiving sedation or anesthesia. It is recommended that a responsible adult be with you until morning. Avoid any exertion for one week. Exertion is lifting over 5 lbs., pushing, pulling or straining. Never use scissors, pins, or other sharp objects near the tube. Avoid bending, crimping or pulling on the tube. Be sure your hands are clean when touching near the tube site or near the suture lock sites. Do not use ointments, creams or powders around the site unless ordered by your physician. POST-PROCEDURE SITE CARE: Keep the dressing around the tube dry. Remove it in 1-2 days and leave the site open to air. For the first 2 days, clean around the tube site and the suture lock sites with warm water and mild soap. Rinse thoroughly and dry gently. You may use a cotton-tipped applicator or small piece of gauze. The suture locks look like small buttons around the tube. They typically detach from the abdomen and fall off in about 10 days as the sutures are absorbed. In rare cases, the suture locks do not fall off and must be removed by the physician. The sutures will usually absorb completely in about 3 months. You may shower after 48 hours and you should gently clean around the tube site while in the shower using mild soap. If you are unable to shower, continue to clean around the tube site and suture lock sites daily as described above. Do not submerge the tube site underwater (no tub bath, swimming/hot tub, etc. ) DIET/MEDICATIONS: If you are able to take oral feedings, begin with a clear liquid diet 12 hours after your tube is placed. If you are tolerating liquids with no distention or abdominal pain, you may begin to eat and drink 24 hours after the procedure. Begin with a clear liquid diet and advance to a normal diet as you can tolerate. Avoid any foods or beverages containing alcohol for at least 24 hours after receiving sedation or anesthesia. Please see attached Medication Reconciliation Sheet for instructions on resuming your home medications. If you are on blood thinning medications, you must contact your doctor who manages them to receive instructions on when to resume them and on when blood work should be done. WHEN TO CALL THE DOCTOR: (Please call [phone] for severe symptoms) You have bleeding from the tube site or through the tube. You are coughing up or vomiting blood or see blood in your stool. You have severe pain at the site or increasing abdominal discomfort. (Some soreness at the site is normal for a few days.) You have persistent nausea or vomiting. Redness, swelling around the tube (a small area of redness is normal). Fever greater than 101?F. Pus-like drainage from around the tube. You have a blocked tube, leaking around the tube site or the tube falls out. After 2 weeks, your suture locks have not fallen off. For any of the above symptoms or for problems or concerns related to the procedure,[phone] for Thursday-Thursday 7-5. After-hours and weekends, please [phone] and ask for the Interventional Straightening Machine Feeder on-call. Discharge Instructions: Caring for Your Gastrostomy Tube (G-Tube) You have been discharged with a gastrostomy tube, or G-tube. The G-tube was inserted through your belly (abdominal) wall and into your stomach. The tube will provide you with food, fluids, and medicine. Your G-tube may move in and out slightly. If the tube comes out all the way inthe first few weeks after placement,dont put it back in. Call your healthcare provider right away. Dont wait until the next day. This is important because the G-tube tract through the skin may close very quickly, often within 24 hours.After the first few weeks, if the tube comes out, ask your provider how to get a spare tube. Ask your provider how to replace it at home. General guidelines for use Wash your hands thoroughly with soap and warm waterbefore starting your feeding. During the feeding and for 1 hour after, sit in a chair or sit up in bed. Before feeding begins, your healthcare provider may have you check to see that your stomach is empty. You will need a syringe for the following steps: ? Insert the tip of an empty syringe into the end of the G-tube. ? Pull back on the syringe to withdraw contents of the stomach. ? Dont begin the feeding if more than ___ mL remains from the previous feeding. Your healthcare provider will tell you how much fluid is safe to have in your stomach before you start your feeding. Clean the area around the tube with mild soap and water. Pat the area dry during bathing and as needed. Clean the area more often if it gets wet or is leaking some discharge ( weeping). Keep the disk (flange) a few millimeters off the skin. This should leave just enough room for a gauze sponge. Pulling the flange too tightly can damage the skin. But leaving the flange too loose leads to leaking around the G-tube. Your healthcare team will go over these guidelines before you leave the hospital. The name of my feeding supplement/formula is: Amount per feeding: Times per day: Amount of water used to flush tube: Pass Christian feeding method Fill the feeding bag with the prescribed amount of formula. Run the fluid to the end of the tube to clear out any air. Clamp the tube. Connect the end of the feeding bag tubing to the G-tube. Hang the bag at least 18 inches above the level of your G-tube. Open the clamp and allow the formula to flow into the G-tube. Follow with the prescribed amount of water. After each feeding, rinse the bag and tubing. Every 24 hours, wash the bag and tubingwith soapy water and rinse thoroughly. Pump feeding method Fill the feeding bag with the prescribed amount of formula. Run the fluid to the end of the tube to clear out any air. Clamp the tube. Connect the end of the feeding bag tubing to the G-tube. Set the pump rate of flow to the prescribed rate per hour. Open the clamp on the tubing; press the start button on your pump. When feeding is complete, disconnect the feeding set. Connect the tip of an empty syringe to the feeding tube and slowly push in the prescribed amount of water. After each feeding, rinse the bag and tubing. Every 24 hours, wash the bag and tubingwith soapy water and rinse thoroughly. Syringe feeding method Remove the plunger from a syringe and connect the syringe to the G-tube. Hold the syringe upright and pour the formula into the syringe. Refill the syringe as the formula reaches the bottom of the syringe. Repeat the process until the prescribed amount of formula is given. Follow the feeding with the prescribed amount of water. After each feeding, rinse the bag and tubing. Every 24 hours, wash the bag and tubingwith soapy water and rinse thoroughly. When to call your provider Call your healthcare provider right away if you have any of the following: The tube comes out The tube is blocked Vomiting Fever above 100.4F (38.0C) Diarrhea that lasts more than 2 days Signs of infection (redness, swelling, or warmth at the tube site) Drainage from the tube site Date Last Reviewed: 02/11/201619998917-4108 [employer]. [address] [place] [address], [place] [address]. All rights reserved. This information is not intended as a substitute for professional medical care. Always follow your healthcare professional's instructions. Gastrostomy Feeding Tube Care: Flushing With gastrostomy tube feeding, you need to keep the tube from getting clogged by flushing it with warm water after each feeding and before and after giving any medicines. There are different types of gastrostomy feeding tubes. One type has a connection that lets you plug or push the syringe into the feeding tube port. A newer type has a twist-on safety connector. The twist-on safety connector means you must use a specific type of syringe that twists onto your feeding tube port. Check with your care team to make sure you are following the steps for your specific type of gastrostomy tube. Plug-in syringe and tube Twist-on syringe and tube For continuous feeding Flush the feeding tube with warm water and a clean syringe before the first daily feeding, after the last daily feeding, and other times as instructed. Follow the steps below: Fill a clean bowl with warm water. Put the tip of the syringe in the water. Draw up 50 cc of water. Turn off the pump. Close the clamp on the feeding bag tubing. Remove the tubing from the port. Put the tip of the syringe in the feeding port. ? Plug-in port. If you have a plug-in feeding tube port, push the tip of the syringe into the feeding tube port. ? Twist-on port. If you have a twist-on feeding tube port, screw the syringe tip onto your feeding port. Push the plunger down. Let the water run through the feeding tube. Start the feeding or close the cap on the feeding port. Tape the tube to the skin with medical tape. Plug-in syringe and tube Twist-on syringe and tube For bolus feeding You may be told to flush the feeding tube before and after each feeding, or just after feedings. Use a clean syringe and warm water. Follow the steps below: Fill a clean bowl with warm water. Put the tip of the syringe in the water. Draw up 50 cc of water (tap water is OK to use). Open the cap on the feeding port. Put the tip of the syringe in the feeding port. ? Plug-in port. If you have a plug-in type feeding tube port, push the tip of the syringe into the feeding tube port. ? Twist-on port. If you have a twist-on feeding tube port, screw the syringe tip onto your feeding port. Push down on the plunger. Let the water run through the tube. Close the cap. Tape the tube to the skin with medical tape. Date Last Reviewed: 12/12/201519991794-9183 [employer]. [address] [place] [address]. All rights reserved. This information is not intended as a substitute for professional medical care. Always follow your healthcare professional's instructions. in this encounter Medications at Time of Discharge Medication Sig. Disp. Refills Start Date End Date acetaminophen (TYLENOL) Take 20.3 mL via feeding 240 mL 0 02/19/2018 160 mg/5 mL oral solution tube every 4 hours as needed. Max of 4,000 mg of acetaminophen in 24 hours. apixaban (ELIQUIS) 5 mg Take 5 mg by mouth twice tabletIndications: per daily. feeding tube aspirin EC 81 mg Take 81 mg by mouth tabletIndications: Per daily. Take with food. feeding tube cetirizine (ZYRTEC) 10 mg Take 10 mg by mouth every tabletIndications: per morning. feeding tube Cholecalciferol (Vitamin Take 1 capsule by mouth D3) (VITAMIN D) 1,000 daily. unit capIndications: per feeding tube etanercept (ENBREL) 50 Inject 50 mg under the mg/mL (0.98 mL) injection skin every 7 days. Lactobacillus acidophilus Take by mouth twice (PROBIOTIC PO) daily. magnesium oxide (MAG-OX) Take 1 tablet by mouth 180 tablet 3 2017 400 mg tabletIndications: daily. per feeding tube montelukast (SINGULAIR) Take 10 mg by mouth at 10 mg tabletIndications: bedtime daily. per feeding tube pravastatin (PRAVACHOL) Take one tablet by mouth 90 tablet 3 2017 10 mg tablet at bedtime daily. Per feeding tube ranitidine(+) (ZANTAC) Take 150 mg by mouth 150 mg tabletIndications: twice daily. per Feeding tube senna/docusate one tablet by Per G Tube 60 tablet 0 02/19/2018 (SENOKOT-S) 8.6/50 mg route twice daily as tablet needed. sertraline (ZOLOFT) 50 mg Take 50 mg by mouth tabletIndications: per daily. feeding tube SPIRIVA RESPIMAT 2.5 Inhale 1 puff by mouth 10/21/2017 mcg/actuation inhaler into the lungs daily. SYMBICORT 160-4.5 Inhale 2 puffs by mouth 12/01/2017 mcg/actuation inhalation into the lungs twice daily. traZODone (DESYREL) 50 mg Take 100 mg by mouth at tabletIndications: per bedtime as needed for feeding tube Sleep. oxyCODONE/acetaminophen Take one tablet via 20 tablet 0 02/19/2018 02/22/2018 (PERCOCET; ENDOCET; feeding tube every 4 ROXICET) 5/325 mg hours as needed Earliest tabletIndications: per Fill Date: 02/19/18 Feeding tube as of this encounter Progress Notes * Pancho Ceja RN - 02/19/2018 1:21 PM CDT Patient discharged to home with instructions. Copy of same provided to patient. Patient left the unit per WC with all her belongings and accompany by daughter and son-in-law to family waiting car outside the hospital front lobby at 1325 hours. * Dolores Blue APRN-COMPLAINT INVESTIGATIONS OFFICER - 02/19/2018 12:11 PM CDT Formatting of this note may be different from the original. CARMEN/HNS PROGRESS NOTE Today's Date: 02/19/2018 Admission Date: 02/15/2018 LOS: 4 days Subjective No acute events overnight. Pain control adequate, denies breathing difficulties. Tolerating TF Objective Vital Signs: Last Filed Vital Signs: 24 Hour Range BP: 144/64 (02/19 1000) Temp: 37.1 C (98.7 F) (02/19 1000) Pulse: 80 (02/19 1000) Respirations: 18 PER MINUTE (02/19 1000) SpO2: 93 % (02/19 1000) O2 Delivery: None (Room Air) (02/19 1000) BP: (131-158)/(56-79) Temp: [36.6 C (97.8 F)-37.1 C (98.8 F)] Pulse: [80-89] Respirations: [18 PER MINUTE] SpO2: [93 %-100 %] O2 Delivery: None (Room Air) Intensity Pain Scale 0-10 (Pain 1): 10 (02/19/18 0540) Vitals: 02/15/18 1005 Weight: 85.9 kg (189 lb 6.4 oz) Drain Output: None Intake/Output Summary: (Last 24 hours) Intake/Output Summary (Last 24 hours) at 02/19/18 1211 Last data filed at 02/19/18 1000 Gross per 24 hour Intake 871 ml Output 660 ml Net 211 ml Stool Occurrence: 1 Physical Exam AAOx3, No acute deficits CNVII intact, symmetric Oral cavity without bleeding noted. Improved Tongue swelling sutures intact No stridor or stertor, aphasic with minimal sentence structure Neck flat, incision c/d/i with sutures, no fluctuance Gtube in place Respirations regular and unlabored Lab Review Comprehensive Metabolic Profile Lab Results Component Value Date/Time NA 138 02/17/2018 05:22 AM K 4.0 02/17/2018 05:22 AM CL 102 02/17/2018 05:22 AM CO2 28 02/17/2018 05:22 AM GAP 8 02/17/2018 05:22 AM BUN 12 02/17/2018 05:22 AM CR 0.65 02/17/2018 05:22 AM GLU 111 (H) 02/17/2018 05:22 AM GLU 97 01/07/2018 12:22 PM Lab Results Component Value Date/Time CA 9.2 02/17/2018 05:22 AM PO4 2.1 02/17/2018 05:22 AM GFR >60 02/17/2018 05:22 AM GFRAA >60 02/17/2018 05:22 AM CBC w/Diff Lab Results Component Value Date/Time WBC 16.8 (H) 02/16/2018 06:25 AM RBC 4.10 02/16/2018 06:25 AM HGB 13.1 02/16/2018 06:25 AM HCT 39.1 02/16/2018 06:25 AM MCV 95.3 02/16/2018 06:25 AM MCH 31.9 02/16/2018 06:25 AM MCHC 33.5 02/16/2018 06:25 AM RDW 13.5 02/16/2018 06:25 AM PLTCT 291 02/16/2018 06:25 AM MPV 8.9 02/16/2018 06:25 AM Lab Results Component Value Date/Time NEUT 46.5 01/07/2018 12:22 PM ANC 5.0 01/07/2018 12:22 PM LYMA 41.9 01/07/2018 12:22 PM ALC 4.4 (H) 01/07/2018 12:22 PM Point of Care Testing (Last 24 hours) Radiology and other Diagnostics Review: Final Diagnosis: A. 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 ([id number]). --------- LIP AND ORAL CAVITY: Excisional Biopsy, [...] the patient's clinical status and/or prior pathology. Problem List: Active Hospital Problems Diagnosis Oral cancer (HCC) Added automatically from request for surgery [id number] COPD (chronic obstructive pulmonary disease) (HCC) On home oxygen therapy Cancer of oral cavity (HCC) Assessment/Plan: Lona Rollins is a 67 y.o. female s/p Floor of mouth resection, Partial glossectomy, Complex vestibuloplasty Bilateral modified radical neck dissection on 02/15. - Pain control adequate, continue current regimen. Local wound care. Encourage mobilization - COPD- uses supplemental O2 at home. On RA during the day. 2 lpm O2 per NC at night. RT for PRN breathing Txs. Conitnue home Symbicort -HDS- h/o CVA with residual weakness of RLE and SUMAN Floyd restarted 02/18. - - Afebrile, VSS - PPX- SCD's, SQH, Pepcid - Dispo: Continue inpt stay. Discharge home 02/19. Dolores Blue APRN Pager [phone] * Olivia Ascencio - 02/19/2018 10:04 AM CDT CLINICAL NUTRITION Clinical Nutrition Follow-Up Summary NAME:Lona Rollins :1950 AGE: 67 y.o. ADMISSION DATE: 02/15/2018 DAYS ADMITTED: LOS: 4 days Nutrition Assessment of Patient: Estimated Calorie Needs: 7095-2459 (30-35 kcal/kg desired wt) Estimated Protein Needs: 80-92 (1.3-1.5 g /kg desired wt) Oral Diet Order: NPO 3 Day EN Delivery (calories) Daily Average: 271 kilocalories (15% of kcal goal) 3 Day EN Delivery (protein) Daily Average: 12 grams (17% of protien goal) Current EN Order: 1 carton (250 mL) Isosource 1.5 5x per day with 60 mL free H20 before and after each bolus. Provides 1875 kcal, 85 gm protein, and 1550 mL free H20. 150 mL free H20 BID. 67 yo F with PMH of RA, COPD who was admittted on 02/15 with cervical lymphadenectomy/newly diagnosed oral cancer. On 02/15 she had floor of mouth resection, partial glossectomy, complex vestibuloplasty, and bilateral MRND. PRODUCT/DEVICE TECHNOLOGIST recommended FLD with 100% supervision but due to poor PO intake tolerance 2/ 2 h/o CVA and recent surgery, pt had G-tube placed 02/17. See RD note from 02/17/18 for subjective information/nutritional Hx. Pt tolerated continuous feeds via PEG yesterday and orders placed for bolus feeds today. Pt's son present. RD on provided initial PEG education which was reinforced by this RD today. Pt/son' s questions and concerns in regards to EN were addressed. Handouts and RD contact information provided. Pt preparing for d/c today. Recommendation: Continue EN as ordered of 1 carton (250 mL) Isosource 1.5 (or equivalent) 5x per day with 60 mL free H20 before and after each bolus. Provides 1875 kcal, 85 gm protein, and 1550 mL free H20. 150 mL free H20 BID. Intervention / Plan: Provided PEG d/c education. Handouts and RD contact information provided. Monitor weight trends, labs, meds, GI health. Nutrition Diagnosis: Altered GI function related to oral cancer s/p resection as evidence by EN feeds via G tube as primary source of nutrition Goals: EN tolerated and meeting >50% of nutritional needs Time Frame: Within 48 Hours Status: Not met;new goal established EN tolerated and meeting >85% of nutritional needs Time Frame: Within 72 Hours Lisa Ascencio, RD, LD Pager: [phone] * Quynh Quintanilla RN - 02/19/2018 6:39 AM CDT I have reviewed the notes, assessments, and/or procedures performed by Esther Lopez RN, and concur with her/his documentation unless otherwise noted. * Erika Pablo, - 02/19/2018 6:16 AM CDT Formatting of this note may be different from the original. RESPIRATORY THERAPY ADULT PROTOCOL EVALUATION RESPIRATORY PROTOCOL PLAN Medications Albuterol: Neb PRN Note: If indicated by protocol, medication orders will be placed by therapist. Procedures Oxygen/Humidity: O2 to keep SpO2 > 92% Monitoring: Pulse oximetry BID & PRN Comment: Pt is currently refusing Symbicort due to stitches in the mouth. PATIENT EVALUATION RESULTS Chart Review * Pulmonary Hx: Hx pulmonary disease, hx reactive or obstructive airway disease (PEFR & AM) OR regular home use of bronchodilators (AM) OR inhaled or systemic steroid use for lungs < or equal to 4 times/yr (AM) (COPD/former smoker) * Surgical Hx: Spinal surgery/injury (LE) * Chest X-Ray: Clear OR not available * PFT/Oxygenation: FEV1, PEFR < 70% OR Pa02 < 70 RA OR Sp02 <92% RA OR Fi02 > 0.21 to keep Sp02 > 92% OR < 24 hours post-op (02 & oxim) OR chronic C02 retention (C02) (pt wears 1-2L/NC at home) Patient Assessment * Respiratory Pattern: Regular pattern and rate OR good chest excursion with deep breathing * Breath Sounds: Clear and able to auscultate bases posteriorly * Cough / Sputum: Strong, effective cough OR nonproductive * Mental Status: Alert, oriented, cooperative * Activity Level: Ambulatory with assistance Priority Index Total Points: 8 Points * Priority Index: 1+ PRIORITY INDEX GUIDELINES* Priority Points 1 0-9 points 2 9-18 points 3 > 18 points + Pulm Dx or Home Rx *Higher points indicate higher acuity. Therapist: RT Philip Date: 02/19/2018 Vera AC=Airway clearance AM=Aerosolized medication BA=[place] aerosol DB&C=Deep breathe & cough FEV1=Forced expiratory volume in first second) IC=Inspiratory capacity LE=Lung expansion MDI=Metered dose inhaler Neb=Nebulizer O2=Oxygen Oxim=Oximetry PEFR=Peak expiratory flow rate RENTAL AGENT=Rapid Response Team * Coco Prabhakar - 02/18/2018 3:07 PM CDT SPEECH-LANGUAGE PATHOLOGY This dept will f/u for ongoing swallow evaluation/dysphagia tx on 02/19 as pt able to participate. Unable to see pt this date as she remains NPO s/p PEG placement on 02/17. Therapist: Coco Prabhakar MA, Carlyn/[facility]-PRODUCT/DEVICE TECHNOLOGIST [phone] Date: 02/18/2018 * Dolores Blue APRN-JESSICA - 02/18/2018 10:25 AM CDT Formatting of this note may be different from the original. CARMEN/HNS PROGRESS NOTE Today's Date: 02/18/2018 Admission Date: 02/15/2018 LOS: 3 days Subjective No acute events overnight. Pain control adequate, s/p Gtube placement Objective Vital Signs: Last Filed Vital Signs: 24 Hour Range BP: 139/70 (02/18 958) Temp: 37.4 C (99.4 F) (02/18 958) Pulse: 83 (02/18 958) Respirations: 18 PER MINUTE (02/18 958) SpO2: 94 % (02/18 958) O2 Delivery: None (Room Air) (02/18 958) SpO2 Pulse: 81 (02/17 1615) BP: (121-166)/(56-86) Temp: [36.5 C (97.7 F)-37.4 C (99.4 F)] Pulse: [81-103] Respirations: [12 PER MINUTE-23 PER MINUTE] SpO2: [92 %-96 %] O2 Delivery: None (Room Air) Intensity Pain Scale 0-10 (Pain 1): 7 (02/18/18 0355) Vitals: 02/15/18 1005 Weight: 85.9 kg (189 lb 6.4 oz) Drain Output: HONEY Drains HONEY Drain - # 2 RN - Intake/Output Summary: (Last 24 hours) Intake/Output Summary (Last 24 hours) at 02/18/18 1025 Last data filed at 02/18/18 0800 Gross per 24 hour Intake 60 ml Output 476 ml Net -416 ml Stool Occurrence: 0 Physical Exam AAOx3, No acute deficits CNVII intact, symmetric Oral cavity without bleeding noted. Improved Tongue swelling sutures intact No stridor or stertor, aphasic with minimal sentence structure Neck flat, incision c/d/i with sutures, no fluctuance HONEY drain sutured in place, holding bulb suction, SS drainage Respirations regular and unlabored Lab Review Comprehensive Metabolic Profile Lab Results Component Value Date/Time NA 138 02/17/2018 05:22 AM K 4.0 02/17/2018 05:22 AM CL 102 02/17/2018 05:22 AM CO2 28 02/17/2018 05:22 AM GAP 8 02/17/2018 05:22 AM BUN 12 02/17/2018 05:22 AM CR 0.65 02/17/2018 05:22 AM GLU 111 (H) 02/17/2018 05:22 AM GLU 97 01/07/2018 12:22 PM Lab Results Component Value Date/Time CA 9.2 02/17/2018 05:22 AM PO4 2.1 02/17/2018 05:22 AM GFR >60 02/17/2018 05:22 AM GFRAA >60 02/17/2018 05:22 AM CBC w/Diff Lab Results Component Value Date/Time WBC 16.8 (H) 02/16/2018 06:25 AM RBC 4.10 02/16/2018 06:25 AM HGB 13.1 02/16/2018 06:25 AM HCT 39.1 02/16/2018 06:25 AM MCV 95.3 02/16/2018 06:25 AM MCH 31.9 02/16/2018 06:25 AM MCHC 33.5 02/16/2018 06:25 AM RDW 13.5 02/16/2018 06:25 AM PLTCT 291 02/16/2018 06:25 AM MPV 8.9 02/16/2018 06:25 AM Lab Results Component Value Date/Time NEUT 46.5 01/07/2018 12:22 PM ANC 5.0 01/07/2018 12:22 PM LYMA 41.9 01/07/2018 12:22 PM ALC 4.4 (H) 01/07/2018 12:22 PM Point of Care Testing (Last 24 hours) Radiology and other Diagnostics Review: Surgical Pathology in progress Problem List: Active Hospital Problems Diagnosis Oral cancer (HCC) Added automatically from request for surgery [id number] COPD (chronic obstructive pulmonary disease) (HCC) On home oxygen therapy Cancer of oral cavity (HCC) Assessment/Plan: Lona Rollins is a 67 y.o. female s/p Floor of mouth resection, Partial glossectomy, Complex vestibuloplasty Bilateral modified radical neck dissection on 02/15. - Pain control adequate, continue current regimen. Continue HONEY drain maintenance possibly remove later today, continue local wound care. Encourage mobilization - COPD- uses supplemental O2 at home. On 1 lpm O2 per NC overnight. RT for PRN breathing Txs. Conitnue home Symbicort -HDS- h/o CVA Will restart Eliquis after last HONEY drain removed later today. - Poor toleration with PO diet due to h/o CVA and surgery. PRODUCT/DEVICE TECHNOLOGIST -failed bedside swallow X 2 s/p IR Gtube placement 02/17 Start Trickle TF @ 330 pm . On bowel regimen. LBM- 02/16/2018 - Afebrile, VSS - PPX- SCD's, SQH, Pepcid - Dispo: Continue inpt stay. Possibly discharge home 02/19. Dolores Blue, LOUIE Pager [phone] * Jasmine Yañez - 02/18/2018 8:50 AM CDT Offered pt. A bath did not want a bath today had a bath yesterday * Sulma Manning, CINTHIA - 02/17/2018 4:45 PM CDT Pt arrived back to the unit in a stable condition from IR. * Esther Overton, CINTHIA - 02/17/2018 3:57 PM CDT Gastrostomy Tube (g-tube) Placement 1. Vital signs q 15 minutes x 4, q 30 minutes x 2, q 1 hour x 4 then may resume prior order. 2. Bedrest: inpatient [address] g-tube to gravity drainage bag for 12 hours post procedure. Do not flush during this time. 4. Flush g-tube with 50mls of water 12 hours post procedure. 5. Tube feeding may be started 24 hours after procedure if water is tolerated. 6. Flush g-tube with 50ml of water after each feeding. 7. If patient is NPO, flush g-tube with 30-60mL water twice daily to maintain patency. 8. Remove dressing 24-48 hours after g-tube placement. 9. Wash stoma with water and pat dry q day and PRN. 10. May resume showering after g-tube site dressing has been removed. * Shanna Angeles RN - 02/17/2018 3:21 PM CDT Sedation physician present in room. Recent vitals and patient condition reviewed between sedating physician and nurse. Reassessment completed. Determination made to proceed with planned sedation. * Chayito Canas RD - 02/17/2018 12:17 PM CDT CLINICAL NUTRITION Clinical Nutrition Assessment Summary NAME:Lona Rollins :1950 AGE: 67 y.o. ADMISSION DATE: 02/15/2018 DAYS ADMITTED: LOS: 2 days Nutrition Assessment of Patient: BMI Categories Adult: Obesity Class I: 30-34.9 Estimated Calorie Needs: 1850 (30 kcal/kg desired wt of 61.44kg) Estimated Protein Needs: 74-122 (1.2-2.0 g/kg) Oral Diet Order: NPO (previously FL) Comments: 67 yof admittted on 02/15 with cervical lymphadenectomy/newly diagnosed oral cancer. On 02/15 she had floor of mouth resection, partial glossectomy, complex vestibuloplasty, and bilateral MRND. PRODUCT/DEVICE TECHNOLOGIST recommended [place] diet with 100% supervision but due to poor PO intake tolerance 2/2 h/o CVA and recent surgery, plan is for G-tube placement today. PMHx also significant for RA,depression, COPD. Per family, pt had lost ~ 17# p/t diagnosis, but she was tolerating a soft diet fire suppression captain and weight stabilized. Patient reported her usual wt as 180# ( 81.81kg). Admit wt was 85.9kg. I spoke to both patient and her son. Son said his son had to have tube feeding and he is is familiar with provison. I reviewed basics of tolerance including: providing product as tolerated, giving product at room temperature, storing unused potion of EN in refrigerator and using within 24 hrs, and need for water flushes before and after any feeds or meds. RD to see pt in 2 days and review education as needed. Plan is for OR this afternoon. Recommendation: Isosource 1.5 @ goal 55 ml/hr. Once tolerated, rec change to bolus feeds with goal of 5 cartons/day. (At goal will provide 1875 kcal, 85 g protein, 955ml free water in EN/day). Patient will need 60 ml water flush before and after each can, and additional 150ml water flush bid. Intervention / Plan: Tube feed recommendations provided. Education provided and RD to review at follow-up Nutrition Diagnosis: Altered GI function oral cancer/resection need for EN to meet 100% estimated needs Goals: EN tolerated and meeting >50% of nutritional needs Time Frame: Within [address],LD Pager # [phone] * Kayla Goldberg M.Div, JESSICA - 02/17/2018 11:34 AM CDT Soaker Hides Note: Admit Date: 02/15/2018 The patient was resting today with her son at her bedside. She nodded to confirm that she is Oriental Orthodox and would like prayer. The renewals specialist prayed with the patient. If she is here next week, the renewals specialist will visit again. Date/Time: User: Pager: [phone] 02/17/2018 11:34 AM Kayla Goldberg M.Div, BCC * Dolores Blue APRN-COMPLAINT INVESTIGATIONS OFFICER - 02/17/2018 7:39 AM CDT Formatting of this note may be different from the original. CARMEN/HNS PROGRESS NOTE Today's Date: 02/17/2018 Admission Date: 02/15/2018 LOS: 2 days Subjective No acute events overnight. Pain control adequate, NPO for Gtube today Objective Vital Signs: Last Filed Vital Signs: 24 Hour Range BP: 143/67 (02/17 531) Temp: 36.8 C (98.3 F) (02/17 531) Pulse: 83 (02/17 600) Respirations: 18 PER MINUTE (02/17 600) SpO2: 95 % (02/17 600) O2 Delivery: Nasal Cannula (02/17 531) BP: (130-153)/(66-71) Temp: [36.7 C (98 F)-36.9 C (98.5 F)] Pulse: [81-94] Respirations: [15 PER MINUTE-18 PER MINUTE] SpO2: [92 %-98 %] O2 Delivery: Nasal Cannula Intensity Pain Scale 0-10 (Pain 1): 4 (02/16/18 1730) Vitals: 02/15/18 1005 Weight: 85.9 kg (189 lb 6.4 oz) Drain Output: HONEY Drains HONEY Drain -# 1 LN- removed on rounds HONEY Drain - # 2 RN - Intake/Output Summary: (Last 24 hours) Intake/Output Summary (Last 24 hours) at 02/17/18 0739 Last data filed at 02/17/18 0532 Gross per 24 hour Intake 0 ml Output 71 ml Net -71 ml Stool Occurrence: 0 Physical Exam AAOx3, No acute deficits CNVII intact, symmetric Oral cavity without bleeding noted. Tongue with improved swelling No stridor or stertor, aphasic with minimal sentence structure Neck flat, incision c/d/i with sutures, no fluctuance HONEY drain sutured in place, holding bulb suction, SS drainage Respirations regular and unlabored Lab Review Comprehensive Metabolic Profile Lab Results Component Value Date/Time NA 138 02/17/2018 05:22 AM K 4.0 02/17/2018 05:22 AM CL 102 02/17/2018 05:22 AM CO2 28 02/17/2018 05:22 AM GAP 8 02/17/2018 05:22 AM BUN 12 02/17/2018 05:22 AM CR 0.65 02/17/2018 05:22 AM GLU 111 (H) 02/17/2018 05:22 AM GLU 97 01/07/2018 12:22 PM Lab Results Component Value Date/Time CA 9.2 02/17/2018 05:22 AM PO4 2.1 02/17/2018 05:22 AM GFR >60 02/17/2018 05:22 AM GFRAA >60 02/17/2018 05:22 AM CBC w/Diff Lab Results Component Value Date/Time WBC 16.8 (H) 02/16/2018 06:25 AM RBC 4.10 02/16/2018 06:25 AM HGB 13.1 02/16/2018 06:25 AM HCT 39.1 02/16/2018 06:25 AM MCV 95.3 02/16/2018 06:25 AM MCH 31.9 02/16/2018 06:25 AM MCHC 33.5 02/16/2018 06:25 AM RDW 13.5 02/16/2018 06:25 AM PLTCT 291 02/16/2018 06:25 AM MPV 8.9 02/16/2018 06:25 AM Lab Results Component Value Date/Time NEUT 46.5 01/07/2018 12:22 PM ANC 5.0 01/07/2018 12:22 PM LYMA 41.9 01/07/2018 12:22 PM ALC 4.4 (H) 01/07/2018 12:22 PM Point of Care Testing (Last 24 hours) Glucose: (!) 111 (02/17/18 0522) Radiology and other Diagnostics Review: Surgical Pathology in progress Problem List: Active Hospital Problems Diagnosis Oral cancer (HCC) Added automatically from request for surgery [id number] COPD (chronic obstructive pulmonary disease) (HCC) On home oxygen therapy Cancer of oral cavity (HCC) Assessment/Plan: Lona Rollins is a 67 y.o. female s/p Floor of mouth resection, Partial glossectomy, Complex vestibuloplasty Bilateral modified radical neck dissection on 02/15. - Pain control adequate, continue current regimen. Continue HONEY drain maintenance , local wound care. Encourage mobilization - COPD- uses supplemental O2 at home. On 1 lpm O2 per NC overnight. RT for PRN breathing Txs. Conitnue home Symbicort -HDS- h/o CVA Eliquis on hold for now, post surgically - Poor toleration with PO diet due to h/o CVA and surgery. Discussed with PRODUCT/DEVICE TECHNOLOGIST -failed bedside swallow pt will be unable to maintain nutrition with po. IR Gtube today 02/17 IV fluids while NPO. On bowel regimen. LBM- 02/16/2018 - Afebrile, VSS - PPX- SCD's, SQH, Pepcid, IV Unasyn - Dispo: Continue inpt stay. Dolores Blue, LOUIE Pager [phone] * Allison Pagan RN - 02/16/2018 2:10 PM CDT IR Progress Note G tube order reviewed. Patient will require phone consent, barium has been ordered. Patient with oral CA, s/p Floor of mouth resection, Partial glossectomy , Complex vestibuloplasty Bilateral modified radical neck dissection on 02/15. LMA okay. Allison Pagan RN BSN * DimitriLorneFabiánchinmayvictorianoCoco - 02/16/2018 9:23 AM CDT SPEECH-LANGUAGE PATHOLOGY CLINICAL SWALLOW ASSESSMENT EVALUATION SUMMARY Summary: A clinical swallow evaluation was completed however limited by pt's participation despite simple education & encouragement. Per discussion w/ JESSICA Bernal w/ ENT team, pt can currently tolerate aspiration. Pt presented w/ moderate oropharyngeal dypshagia & anticipate improvement given time. Primary source of dysphagia appears to be impaired ROM & edema s/p s/p floor of mouth resection, partial glossectomy, complex vestibuloplasty and bilateral modified radical neck dissection on 02/15. Please see below for additional documentation. RECOMMENDATIONS: Full liquids given 100% supervision w/ p.o. intake. Currently anticipate pt's oral intake will be limited; therefore, encourage supplements/frequent oral intake to maximize nutritional intake. Ongoing speech tx for dysphagia managment. Good oral care as approved by primary team to minimize pt's risk of aspirating bacteria in oral secretions. Pills crushed in puree. Discussed pt w/ RN and JESSICA Bernal w/ primary team. Oral Stage Summary*: Moderately impaired. Bolus w/draw slowed w/ oral holding observed. When pt initiated AP transfer mild to mild-moderately prolonged increasing risk for early posterior spillage w/ less viscous presentations. W/ naturally puree solids trace lingual residue observed, cleared w/ liquid wash. Pharyngeal Stage Summary*: Suspect presence of mild pharyngeal dysphagia. Laryngeal elevation judged to be decreased most likely related to presence of edema and suspect mildly delayed swallow initiation. Overt s/s aspiration not observed w/ thin or naturally puree solids/full liquid consistency. Swallow Strategies: Supervision During Meals, Small Bites/Sips, Slow Rate of Intake, Alternate Solids and Liquids (every 2 bites) Plan: Continue Treatment __x/week (Comment). (3-5x/wk during acute hospitalization) Prognosis: Fair, Good NOMS Dysphagia Ratin-Moderate Dysphagia -Alternative method of feeding needed. Pt takes < 50% of nutrition/hydration by mouth &/or swallow safe w/ consistent mod cueing to use compensatory strategies &/or requires max diet restriction. Results Reported to Physician: Yes Objective* Relevant Med Background: Lona Rollins is a 67 y.o. female s/p Floor of mouth resection, Partial glossectomy, Complex vestibuloplasty Bilateral modified radical neck dissection on 02/15. 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 Prominent mediastinal lymph nodes that were not hypermetabolic on same day PET/CT, likely reactive. 2. Small right pulmonary nodules, which are indeterminate but may represent scars or noncalcified granulomas. Continued follow-up is recommended. 3. Mild emphysema with scattered areas of scarring. 4. Moderate calcified coronary artery disease. Receives Help From: Family Psychosocial Status: Participates in Therapy with Encouragement Persons Present: Son Subjective* Pain: Patient complains of pain Pain Level Current*: 7 (RN administered pain medication during eval) Trach Presence: No Feeding Tube Present During Eval: None Nutrition* Nutrition Prior To Hospitalization: Regular, Thin Liquids (opting for some softer solids per pt's son) Current Form Of Nutrition: (clear liquids) ORAL MECH EXAM Oral Mech WFL*: No Oral Mech Exam Summary*: Min decreased labial ROM on right which anticipate to be baseline 2* pt's h/o CVA; lingual & jaw ROM impaired w/ lingual bruising observed bilaterally and this impacted assessment of strength 2* pt's reported pain; volitional cough weak; vocal quality impaired; appears to be presence of baseline aphasia and question presence of dysarthria however w/ limited verbal output difficult to evaluate. Education* Persons Educated: Patient Barriers To Learning: Impaired Communication Interventions: Family Educated, Staff Educated, Provided Written Education Teaching Methods: Verbal, Printed Topics: Dysphagia Patient Response: More Instruction Required Goal Formulation: With Pt/Family Clinical Swallow Goals* Goal : The pt will tolerate a full liquid diet w/ < 5% overt s/s aspiration. Goal : The pt will participate in ongoing swallow eval given mod cues and encouragement. Therapist:Coco Prabhakar MA, L/CCC-PRODUCT/DEVICE TECHNOLOGIST [phone] Date:02/16/2018 * Sera Seyd RN - 02/16/2018 7:00 AM CDT Patient arrived to room # (5403) via bed accompanied by RN. Patient transferred to the bed with assistance. Bedside safety checks completed. Initial patient assessment completed, refer to flowsheet for details. Admission skin assessment completed by: Henrique Arriaga RN Pressure Injury Present on Hospital Admission (within 24 hours): No 1. Occiput: No 2. Ear: No 3. Scapula: No 4. Spinous Process: No 5. Shoulder: No 6. Elbow: No 7. Iliac Crest: No 8. Sacrum/Coccyx: No 9. Ischial Tuberosity: No 10. Trochanter: No 11. Knee: No 12. Malleolus: No 13. Heel: No 14. Toes: No 15. Assessed for device associated injury Yes 16. Nursing Nutrition Assessment Completed Yes See Doc Flowsheet for additional wound details. INTERVENTIONS: Q2 turns initiated. Skin assessed as needed and per shift. RN ANNA * Neha Barraza RT - 02/16/2018 6:19 AM CDT Formatting of this note may be different from the original. RESPIRATORY THERAPY ADULT PROTOCOL EVALUATION RESPIRATORY PROTOCOL PLAN Medications Albuterol: Neb PRN Note: If indicated by protocol, medication orders will be placed by therapist. Procedures Oxygen/Humidity: O2 to keep SpO2 > 92% (pt wears 1-2L @ home ) Monitoring: Pulse oximetry BID & PRN Comment: symbicort BID PATIENT EVALUATION RESULTS Chart Review * Pulmonary Hx: Hx pulmonary disease, hx reactive or obstructive airway disease (PEFR & AM) OR regular home use of bronchodilators (AM) OR inhaled or systemic steroid use for lungs < or equal to 4 times/yr (AM) (COPD/former smoker) * Surgical Hx: Spinal surgery/injury (LE) * Chest X-Ray: Clear OR not available (no x-ray) * PFT/Oxygenation: FEV1, PEFR < 70% OR Pa02 < 70 RA OR Sp02 <92% RA OR Fi02 > 0.21 to keep Sp02 > 92% OR < 24 hours post-op (02 & oxim) OR chronic C02 retention (C02) (pt states wears 1-2 L at home) Patient Assessment * Respiratory Pattern: Regular pattern and rate OR good chest excursion with deep breathing * Breath Sounds: Clear and able to auscultate bases posteriorly * Cough / Sputum: Strong, effective cough OR nonproductive * Mental Status: Alert, oriented, cooperative * Activity Level: Ambulatory with assistance Priority Index Total Points: 8 Points * Priority Index: 1+ PRIORITY INDEX GUIDELINES* Priority Points 1 0-9 points 2 9-18 points 3 > 18 points + Pulm Dx or Home Rx *Higher points indicate higher acuity. Therapist: Neha Barraza, RT Date: 02/16/2018 Vera AC=Airway clearance AM=Aerosolized medication BA=[place] aerosol DB&C=Deep breathe & cough FEV1=Forced expiratory volume in first second) IC=Inspiratory capacity LE=Lung expansion MDI=Metered dose inhaler Neb=Nebulizer O2=Oxygen Oxim=Oximetry PEFR=Peak expiratory flow rate RENTAL AGENT=Rapid Response Team * Dolores Blue, NET SQL DEVELOPER-COMPLAINT INVESTIGATIONS OFFICER - 02/16/2018 5:49 AM CDT Formatting of this note may be different from the original. CARMEN/HNS PROGRESS NOTE Today's Date: 02/16/2018 Admission Date: 02/15/2018 LOS: 1 day Subjective No acute events overnight. Pain control adequate, Poor toleration with PO. Having intermittent nausea Objective Vital Signs: Last Filed Vital Signs: 24 Hour Range BP: 140/89 (02/16 526) Temp: 36.4 C (97.5 F) (02/16 526) Pulse: 87 (02/16 526) Respirations: 16 PER MINUTE (02/16 619) SpO2: 92 % (02/16 619) O2 Delivery: Nasal Cannula (02/16 526) SpO2 Pulse: 87 (02/15 1745) Height: 160 cm (63") (02/15 1005) BP: (138-198)/(57-89) Temp: [36.4 C (97.5 F)-37.1 C (98.8 F)] Pulse: [65-94] Respirations: [12 PER MINUTE-17 PER MINUTE] SpO2: [92 %-100 %] O2 Delivery: Nasal Cannula Intensity Pain Scale 0-10 (Pain 1): 8 (02/16/18 0250) Vitals: 02/15/18 1005 Weight: 85.9 kg (189 lb 6.4 oz) Drain Output: HONEY Drains HONEY Drain -# 1 RN- 36 / 32 HONEY Drain - # 2 RN -36 Intake/Output Summary: (Last 24 hours) Intake/Output Summary (Last 24 hours) at 02/16/18 0833 Last data filed at 02/16/18 0700 Gross per 24 hour Intake 1200 ml Output 832 ml Net 368 ml Stool Occurrence: 0 Physical Exam AAOx3, No acute deficits CNVII intact, symmetric Oral cavity without bleeding noted. Tongue with mild swelling No stridor or stertor, aphasic with minimal sentence structure Neck flat, incision c/d/i with sutures, no fluctuance HONEY drain sutured in place, holding bulb suction, SS drainage Respirations regular and unlabored Lab Review Comprehensive Metabolic Profile Lab Results Component Value Date/Time NA 137 02/16/2018 06:25 AM K 4.3 02/16/2018 06:25 AM CL 104 02/16/2018 06:25 AM CO2 27 02/16/2018 06:25 AM GAP 6 02/16/2018 06:25 AM BUN 11 02/16/2018 06:25 AM CR 0.70 02/16/2018 06:25 AM GLU 144 (H) 02/16/2018 06:25 AM GLU 97 01/07/2018 12:22 PM Lab Results Component Value Date/Time CA 9.1 02/16/2018 06:25 AM GFR >60 02/16/2018 06:25 AM GFRAA >60 02/16/2018 06:25 AM CBC w/Diff Lab Results Component Value Date/Time WBC 16.8 (H) 02/16/2018 06:25 AM RBC 4.10 02/16/2018 06:25 AM HGB 13.1 02/16/2018 06:25 AM HCT 39.1 02/16/2018 06:25 AM MCV 95.3 02/16/2018 06:25 AM MCH 31.9 02/16/2018 06:25 AM MCHC 33.5 02/16/2018 06:25 AM RDW 13.5 02/16/2018 06:25 AM PLTCT 291 02/16/2018 06:25 AM MPV 8.9 02/16/2018 06:25 AM Lab Results Component Value Date/Time NEUT 46.5 01/07/2018 12:22 PM ANC 5.0 01/07/2018 12:22 PM LYMA 41.9 01/07/2018 12:22 PM ALC 4.4 (H) 01/07/2018 12:22 PM Point of Care Testing (Last 24 hours) Glucose: (!) 144 (02/16/18 06) Radiology and other Diagnostics Review: Surgical Pathology in progress Problem List: Active Hospital Problems Diagnosis Oral cancer (HCC) Added automatically from request for surgery [id number] COPD (chronic obstructive pulmonary disease) (HCC) On home oxygen therapy Cancer of oral cavity (HCC) Assessment/Plan: Lona Rollins is a 67 y.o. female s/p Floor of mouth resection, Partial glossectomy, Complex vestibuloplasty Bilateral modified radical neck dissection on 02/15. - Pain control adequate, continue current regimen. Continue HONEY drain maintenance , local wound care. Encourage ambulation - COPD- uses supplemental O2 at home. On 2 lpm O2 per NC overnight. RT for PRN breathing Txs. Conitnue home Symbicort -HDS- h/o CVA Eliquis on hold for now post surgically - Poor toleration with PO diet due to h/o CVA and surgery. Will have PRODUCT/DEVICE TECHNOLOGIST due bedside swallow. IV fluids. On bowel regimen. LBM- POT RUNNER - Afebrile, VSS - PPX- SCD's, SQH, Pepcid, IV Unasyn - Dispo: Continue inpt stay. Dolores Blue, NET SQL DEVELOPER Pager [phone] in this encounter H&P Notes * Jameson Sands, LOUIE-COMPLAINT INVESTIGATIONS OFFICER - 02/17/2018 2:04 PM CDT Formatting of this note may be different from the original. 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 Allergies: Levaquin [levofloxacin] and Rocephin [ceftriaxone] Medications: Scheduled Meds: ampicillin/sulbactam (UNASYN) 3 g in sodium chloride 0.9% (NS) 100 mL IVPB (MB+ ) 3 g Intravenous Q6H* [SEP Hold] barium sulfate 40 % (VARIBAR THIN LIQUID ) oral powder for suspension 120 mL 120 mL Per NG tube ONCE [SEP Hold] budesonide/formoterol (SYMBICORT HFA) 160/4.5 mcg inhalation 2 puff 2 puff Inhalation BID [SEP Hold] famotidine (PEPCID) tablet 20 mg 20 mg Oral BID [SEP Hold] montelukast (SINGULAIR) tablet 10 mg 10 mg Oral QHS [SEP Hold] pravastatin (PRAVACHOL) tablet 10 mg 10 mg Oral QHS [SEP Hold] senna/docusate (SENOKOT-S) tablet 1 tablet 1 tablet Oral BID [SEP Hold] sertraline (ZOLOFT) tablet 50 mg 50 mg Oral QDAY Continuous Infusions: sodium chloride 0.45 % with KCl 20 mEq/L infusion 75 mL/hr at 02/17/18 0603 PRN and Respiratory Meds:[SEP Hold] acetaminophen Q4H PRN, [SEP Hold] albuterol 0.083% Q4H PRN, [SEP Hold] bisacodyl QDAY PRN, [SEP Hold] diphenoxylate/ atropine QID PRN, [SEP Hold] milk of magnesia (CONC) QDAY PRN, [SEP Hold] morphine injection syringe Q2H PRN, [SEP Hold] ondansetron (ZOFRAN) IV Q6H PRN , [SEP Hold] oxyCODONE/acetaminophen Q4H PRN Vital Signs: Last Filed Vital Signs: 24 Hour Range BP: 143/69 (02/17 939) Temp: 36.8 C (98.2 F) (02/17 939) Pulse: 92 (02/17 939) Respirations: 16 PER MINUTE (02/17 939) SpO2: 98 % (02/17 939) O2 Delivery: None (Room Air) (02/17 939) BP: (130-153)/(66-71) Temp: [36.7 C (98 F)-36.9 C (98.5 F)] Pulse: [83-94] Respirations: [16 PER MINUTE-18 PER MINUTE] SpO2: [92 %-98 %] O2 Delivery: None (Room Air) Sedation/Medication Plan: Conscious sedation Personal history of sedation complications: Denies adverse event. Family history of sedation complications: Denies adverse event. Medications for Reversal: Naloxone and Flumazenil Discussion/Reviews: Physician has discussed risks and alternatives of this type of sedation and above planned procedures with patient NPO Status: Acceptable Airway: airway assessment performed Mallampati II (soft palate, uvula, fauces visible) Head and Neck: no abnormalities noted Mouth: no abnormalities noted Anesthesia Classification: ASA III (A patient with a severe systemic disease that limits activity, but is not incapacitating) Status: Not Lab/Radiology/Other Diagnostic Tests Labs: 24-hour labs: Results for orders placed or performed during the hospital encounter of (from the past 24 hour(s)) BASIC METABOLIC PANEL Collection Time: 02/17/18 5:22 AM Result Value Ref Range Sodium 138 137 - 147 MMOL/L Potassium 4.0 3.5 - 5.1 MMOL/L Chloride 102 98 - 110 MMOL/L CO2 28 21 - 30 MMOL/L Anion Gap 8 3 - 12 Glucose 111 (H) 70 - 100 MG/DL Blood Urea Nitrogen 12 7 - 25 MG/DL Creatinine 0.65 0.4 - 1.00 MG/DL Calcium 9.2 8.5 - 10.6 MG/DL eGFR Non >60 >60 mL/min eGFR >60 >60 mL/min MAGNESIUM Collection Time: 02/17/18 5:22 AM Result Value Ref Range Magnesium 1.6 1.6 - 2.6 mg/dL PHOSPHORUS Collection Time: 02/17/18 5:22 AM Result Value Ref Range Phosphorus 2.1 2.0 - 4.0 MG/DL I have examined the patient, and there are no significant changes in their condition, from the previous H&P performed on 02/16/18. Jameson Sands APRN-COMPLAINT INVESTIGATIONS OFFICER Pager [phone] * Jacquelyn Marquez MD - 02/15/2018 12:54 PM CDT History and Physical Update Note Allergies: Levaquin [levofloxacin] and Rocephin [ceftriaxone] Lab/Radiology/Other Diagnostic Tests: 24-hour labs: No results found for this visit on 02/15/18 (from the past 24 hour(s)). Point of Care Testing: (Last 24 hours): I have examined the patient, and there are no significant changes in their condition, from the previous H&P performed on 01/29/18. Jacquelyn Marquez MD Pager * Gopi Mott MD - 01/29/2018 10:45 AM CDT Formatting of this note may be different from the original. Chief Complaint Patient presents with Cancer History of Present Illness: Lona Rollins is a 67 y.o. year old female evaluated on 01/29/2018, in the Otol[facility]ology[facility] at the [facility]. The patient was referred by Dr. 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 recently noticed red bumps and painful area under tongue x [address] Maguire assesses granular erosive lesion present in the anterior floor of the portion of the mandible. It measures 2.5 cm in length and goes from near the midline posteriorly. Pt has normal tongue mobility. Pt is eating and swallowing sufficiently. She is choosing soft foods only. Dtr states 17 lb wt loss in past 3 months, but has stablized. 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 01/21/18 PSVT s/p ablation at CT C and N and PET done today. She feels no major symptoms from this now. She has no dysphagia/odynophagia, no hemoptysis, no throat tightness or breathing difficulty, no otalgia. 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 Past surgical history reviewed and is noncontributory. Past Family/Social History Family history reviewed and is noncontributory. She reports that she quit smoking about 4 years ago. Her smoking use included Cigarettes. She has never used smokeless tobacco. She reports that she does not drink alcohol or use drugs. Medications/Allergies/Immunizations Her current medication(s) include: Current Outpatient Prescriptions Medication Sig Dispense Refill apixaban (ELIQUIS) 5 mg tablet Take 5 mg by mouth twice daily. ASCORBATE CALCIUM (VITAMIN C PO) Take 500 mg by mouth daily. aspirin EC 81 mg tablet Take 81 mg by mouth daily. Take with food. Cholecalciferol (Vitamin D3) (VITAMIN D) 1,000 unit cap Take 1 capsule by mouth daily. etanercept (ENBREL) 50 mg/mL (0.98 mL) injection Inject 50 mg under the skin every 7 days. Lactobacillus acidophilus (PROBIOTIC PO) Take by mouth twice daily. magnesium oxide (MAG-OX) 400 mg tablet Take 1 tablet by mouth daily. 180 tablet 3 montelukast (SINGULAIR) 10 mg tablet Take 10 mg by mouth at bedtime daily. multivit-minerals/folic acid (ADULT MULTIVITAMIN GUMMIES PO) Take 2 Gummy by mouth daily. oxyCODONE/acetaminophen (PERCOCET; ENDOCET; ROXICET) 5/325 mg tablet Take 1 tablet by mouth twice daily pravastatin (PRAVACHOL) 10 mg tablet Take 10 mg by mouth at bedtime daily. ranitidine(+) (ZANTAC) 150 mg tablet Take 150 mg by mouth twice daily. sertraline (ZOLOFT) 50 mg tablet Take 50 mg by mouth daily. SPIRIVA RESPIMAT 2.5 mcg/actuation inhaler Inhale 1 puff by mouth into the lungs daily. SYMBICORT 160-4.5 mcg/actuation inhalation Inhale 2 puffs by mouth into the lungs twice daily. traZODone (DESYREL) 50 mg tablet Take 100 mg by mouth at bedtime as needed for Sleep. No current facility-administered medications for this visit. Allergies: Levaquin [levofloxacin] and Rocephin [ceftriaxone] Review of Systems Constitutional: Positive for unexpected weight change. HENT: Positive for mouth sores, tinnitus and trouble swallowing. Eyes: Negative. Respiratory: Positive for shortness of breath. Cardiovascular: Positive for palpitations. Gastrointestinal: Negative. Endocrine: Negative. Genitourinary: Negative. Musculoskeletal: Positive for arthralgias and joint swelling. Skin: Negative. Allergic/Immunologic: Negative. Neurological: Positive for speech difficulty. Hematological: Negative. Psychiatric/Behavioral: Positive for sleep disturbance. All other systems are negative except for that listed in the HPI. PHYSICAL EXAM: Vital Signs: BP 150/67 | Pulse 73 | Ht 157.5 cm (62") | Wt 87.1 kg (192 lb) | BMI 35.12 kg/m General: Well-developed, well-nourished Communication and Voice: Clear pitch and clarity Hearing: Hearing adequate for verbal communication bilaterally Inspection: Normocephalic and atraumatic without mass or lesion Palpation: Facial skeleton intact without bony stepoffs Parotid Glands: No mass or tenderness Facial Strength: Facial motility symmetric and full bilaterally Pinna: External ear intact and fully developed External canal: Canal is patent with intact skin Tympanic Membrane: Clear and mobile External nose: No scar or anatomic deformity Internal Nose: Septum intact and midline. No edema, polyp, or rhinorrhea. TMJ: No pain to palpation with full mobility Oral cavity, Lips, Teeth, and Gums: Mucosa and teeth intact and viable; small mass noted in floor of mouth right Oropharynx: No erythema or exudate, no masses or ulcerations, non-obstructive tonsils Nasopharynx: No mass or lesion with intact mucosa Hypopharynx: No masses or ulcerations, normal mucosa without pooling of secretions Larynx: Normal supraglottic and glottic structures without masses or ulcerations, normal vocal fold mobility Neck, Trachea, Lymphatics: Midline trachea without mass or lesion, no lymphadenopathy Thyroid: No mass or nodularity Eyes: No nystagmus with equal extraocular motion bilaterally Neuro/Psych/Balance: Patient oriented and appropriate in interaction; Appropriate mood and affect; Gait is intact with no imbalance; Cranial nerves I -XII are intact Respiratory effort: Equal inspiration and expiration without stridor Peripheral Vascular: Warm extremities with equal pulses IMPRESSION: My impression is that 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 PLAN: After review of the various options including the risks, benefits and alternatives, Ms. Rollins has opted to proceed with surgery as part of her overall management which I believe is reasonable for her condition. Surgery will consist of WLE with STSG, bilateral neck dissection, and possible marginal mandibulectomy. I explained that the surgery will take approximately three hours and will be under general anesthesia. She will need to undergo PAT for pre-op clearance and a cardio consult as well. We will hence proceed with scheduling surgery in the near future as well as order appropriate preoperative testing and evaluation prior to surgery. I believe that Ms. Rollins has a good understanding of the issues involved and I answered all of her questions. Attending Physician Note I independently interviewed, examined and formulated the medical decision making for Ms. Rollins. Details of my interview, examination findings, and medical decision-making confirmed the findings in the resident physician's documentation. I have personally amended the resident physician's documentation in bold where appropriate. Staff name: Gopi Mott MD Date: 01/29/2018 in this encounter Miscellaneous Notes * Care Plan - Pancho Ceja RN - 02/19/2018 12:59 PM CDT Problem: Skin Integrity Goal: Skin integrity intact Outcome: Goal Ongoing Skin intact with sutures around the neck. No redness or drainage noted. Problem: Falls, High Risk of Goal: Absence of falls-Adult Patient Outcome: Goal Ongoing Fall bundles in place. No fall this shift. Problem: Discharge Planning Goal: Participation in plan of care Outcome: Goal Ongoing Patient and daughter participating in plan of care. Looking forward to being discharged today. * Case Mgmt Francisca Son - 02/19/2018 11:36 AM CDT Formatting of this note may be different from the original. Case Management Progress Note NAME:Lona Rollins : AGE: 67 y.o. ADMISSION DATE: 02/15/2018 DAYS ADMITTED: LOS: 4 days Todays Date: 02/19/2018 Plan Pt to d/c home today in the care of his paid caregivers son/daughter. NCM placed call to [employer] department P: [phone] FP [phone] and informed them that pt is d/c. Agency will contact daughter/Ratna and see if they can picket labor union formula on their way home or see if they need it delivered to the house. Interventions ? Support Support: Other ? Info or Referral ? Discharge Planning NCM reviewed chart and discussed POC with NET SQL DEVELOPER/SW ? Medication Needs ? Financial ? Legal ? Other Disposition ? Expected Discharge Date Expected Discharge Date: 02/19/18 ? Transportation Does the patient need discharge transport arranged?: Yes Transportation Name, Phone and Availability #1: children Does the patient use Medicaid Transportation?: No ? Next Level of Care (Acute Psych discharges only) ? Discharge Disposition Durable Medical Equipment No service has been selected for the patient. [facility] No service has been selected for the patient. [facility] No service has been selected for the patient. [facility] D[facility]/Infusion No service has been selected for the patient. Carrie Orozco RN Nurse Elementary Principal * Case Mgmt Francisca Son - 02/18/2018 11:17 AM CDT Formatting of this note may be different from the original. Case Management Progress Note NAME:Lona Rollins : AGE: 67 y.o. ADMISSION DATE: 02/15/2018 DAYS ADMITTED: LOS: 3 days Todays Date: 02/18/2018 Plan Pt to likely d/c home with her daughter/son who are paid care providers for her to her Daughter/Jaclyn's address: [address] [place] [id number] where she will have [employer] EN feeds be delivered on day of d/c P: [phone] F: [phone] Daughter updated at bedside regarding d/c planning Interventions ? Support Support: Other, Pt/Family Updates re:POC or DC Plan ? Info or Referral ? Discharge Planning NCM reviewed chart and discussed POC with NET SQL DEVELOPER/SW ? Medication Needs ? Financial ? Legal ? Other Disposition ? Expected Discharge Date Expected Discharge Date: 02/19/18 ? Transportation Does the patient need discharge transport arranged?: Yes Transportation Name, Phone and Availability #1: children Does the patient use Medicaid Transportation?: No ? Next Level of Care (Acute Psych discharges only) ? Discharge Disposition Durable Medical Equipment No service has been selected for the patient. [facility] No service has been selected for the patient. [facility] No service has been selected for the patient. [facility]In[facility] No service has been selected for the patient. Carrie Orozco RN Nurse Elementary Principal * Case Mgmt DC Plan - Lorri Daly - 02/18/2018 9:51 AM CDT Formatting of this note may be different from the original. Case Management Progress Note NAME:Lona Rollins : AGE: 67 y.o. ADMISSION DATE: 02/15/2018 DAYS ADMITTED: LOS: 3 days Todays Date: 02/18/2018 Plan Anticipate dc home with family pending medical stability. Hopeful for dc tomorrow. Interventions ? Support Support: No Needs Identified, Pt/Family Updates re:POC or DC Plan YEHUDA alerted yesterday family has questions/concerns about lodging. YEHUDA met with pt and daughter; Jaclyn at bedside. Jaclyn stated she has been getting assistance for lodging through the [employer] [place] [employer]. Stated her hotel will be covered until night. Inquire what resources would be available. YEHUDA stated she would be able to provide lodging assistance packet. YEHUDA inquired if family would have the funds for one night. Stated they would, they just: "didn't want to have to scrape money together." YEHUDA verbalized understanding. YEHUDA delivered lodging resources today. ? Info or Referral ? Discharge Planning ? Medication Needs ? Financial ? Legal ? Other Disposition ? Expected Discharge Date Expected Discharge Date: 02/19/18 ? Transportation Does the patient need discharge transport arranged?: Yes Transportation Name, Phone and Availability #1: children Does the patient use Medicaid Transportation?: No ? Next Level of Care (Acute Psych discharges only) ? Discharge Disposition Durable Medical Equipment No service has been selected for the patient. [facility] No service has been selected for the patient. Home Care No service has been selected for the patient. Dialysis/Infusion No service has been selected for the patient. Lorri Daly [facility] [place] Pager:[phone] * Procedures (Immed Post or Bedside) - Eliud Hayes MD - 02/17/2018 3: 36 PM CDT Immediate Post Procedure Note Date: 02/17/2018 Attending Physician: Gabriela Galloway MD Performing Provider: Eliud Hayes MD Consent: Consent obtained from patient. Time out performed: Consent obtained, correct patient verified, correct procedure verified, correct site verified, patient marked as necessary. Pre/Post Procedure Diagnosis: Oral cancer Indications: Feeding, med administration Anesthesia: Local 8 mL 2% lidocaine without epinephrine with IV sedation versed and fentanyl Procedure(s): Image guided gastrostomy tube placement Findings: Successful image guided placement of gastrostomy tube Estimated Blood Loss: Minimal Specimen(s) Removed/Disposition: None Complications: None Patient Tolerated Procedure: Well Post-Procedure Condition: stable Eliud Hayes MD Pager [phone] * Case Mgmt DC Plan - Francisca Orozco - 02/17/2018 12:55 PM CDT Formatting of this note may be different from the original. Case Management Progress Note NAME:Lona Rollins : AGE: 67 y.o. ADMISSION DATE: 02/15/2018 DAYS ADMITTED: LOS: 2 days Todays Date: 02/17/2018 Plan Pt to likely d/c home 02/19 with [employer] feedings. Pt lives in area where [employer] P: [phone] F: [phone] [place] sent clinical/demographic to agency for delivery of EN feedings for d/c planning. Interventions ? Support Support: No Needs Identified, Pt/Family Updates re:POC or DC Plan ? Info or Referral ? Discharge Planning NCM reviewed chart and discussed POC with NET SQL DEVELOPER/SW ? Medication Needs ? Financial ? Legal ? Other Disposition ? Expected Discharge Date Expected Discharge Date: 02/19/18 ? Transportation Does the patient need discharge transport arranged?: Yes Transportation Name, Phone and Availability #1: children Does the patient use Medicaid Transportation?: No ? Next Level of Care (Acute Psych discharges only) ? Discharge Disposition Durable Medical Equipment No service has been selected for the patient. [facility] No service has been selected for the patient. Home Care No service has been selected for the patient. [facility] D[facility]/Infusion No service has been selected for the patient. Carrie Orozco RN Nurse Elementary Principal * Care Plan - Sera Syed RN - 02/16/2018 3:22 PM CDT Problem: Falls, High Risk of Goal: Absence of falls-Adult Patient Outcome: Goal Ongoing Patient is a high fall risk because of lower extremity weakness and missing digits on foot. The fall bundle is in place. personal times and call lights are within reach. Family present in room. RN will continue to implement. * Case Mgmt DC Plan - Francisca Orozco - 02/16/2018 12:38 PM CDT Case Management Admission Assessment NAME:Lona Rollins :[birth year] AGE: 67 y.o. ADMISSION DATE: 02/15/2018 DAYS ADMITTED: LOS: 1 day Todays Date: 02/16/2018 Source of Information: patient daughter/Jaclyn Plan Plan: CM Assessment, Assist PRN with SW/NCM Services NCM to pt room for assessment, pt up in bedside chair while daughter sitting next to her in hospital bed. NCM introduced self and role of NCM services. Daughter states that she and her brother are employees of [email or web address] and are paid to care for her in the home providing cooking, cleaning, transportation, medical transcriptionist, assist with therapy. Daughter states that pt has had IPR through [facility] in [place], [place] x2. Daughter states that no new orders need to be obtained at d/c for ATUL, PCP will manage all orders for [email or web address] NCM sees no needs at d/c and will follow bedside swallow study for continued recs. Pt owns all necessarry equipment if needed at d/c: wc, rollator, SC, has O2 for nocs 2L, commode, toilet riser. NCM to continue to monitor for d/c recs Patient Address/Phone [address] [facility] [address] (home) Emergency Contact Extended Emergency Contact Information Primary Emergency Contact: Jaclyn Perea Address: [address] [place] [address] [facility] [place] Relation: Daughter Healthcare Directive Healthcare Directive: No, patient does not have a healthcare directive Would patient like to fill out a (a new) Healthcare Directive?: No, patient declined Psych Advance Directive (Psych unit only): No, patient does not have a Psych Advance Directive Transportation Does the patient need discharge transport arranged?: Yes Transportation Name, Phone and Availability #1: children Does the patient use Medicaid Transportation?: No Expected Discharge Date Expected Discharge Date: 02/19/18 Living Situation Prior to Admission ? Living Arrangements Type of Residence: Home, dependent on others Living Arrangements: Children (son and daughter work as INSTRUMENT AND ELECTRICAL TECHNICIAN in home for mother through [facility]) Bathroom Shower / Tub: Tub/Shower Unit How many levels in the residence?: 1 (one step to enter home) Can patient live on one level if needed?: Yes Does residence have entry and/or side stairs?: No Assistance needed prior to admit or anticipated on discharge: Yes Who provides assistance or could if needed?: children/paid through agency to care for her Are they in good health?: Yes Can support system provide 24/7 care if needed?: Yes ? Level of Function Prior level of function: Needs assist with ADLs Which ADLs require assistance?: transportation, meal prep, bathing, cleaning Who assists with ADLs?: children/paid for as employees thru [employer] paid through [facility] plan ? Cognitive Abilities Cognitive Abilities: Alert and Oriented Financial Resources ? Coverage Primary Insurance: Medicare (A and B) Secondary Insurance: Medicaid ([facility] medicaid) Additional Coverage: (consolidated billing) ? Source of Income Source Of Income: SSI ? Financial Assistance Needed? Pt has no copays for meds Psychosocial Needs ? Mental Health Mental Health History: Yes Agency name: PCP Mental Health Provider: Dr Didi Louie, last visit 2-3 mo ago Mental Health Symptoms: Feeling depressed ? Substance Use History Substance Use History Screen: In the past Comment: Pt smoked 1.5 PPD x 40 yrs ago, quit 3 yrs ago. Pt quit drinking 15 yrs ago, HX of drinking 2-3 white russions/day 2-3 night x30 yrs ? Other Na Current/Previous Services ? PCP Didi Louie, , ? Pharmacy [facility] [address] [facility] [address] ? Durable Medical Equipment Durable Medical Equipment at home: Bedside Commode, Shower Chair, Rollator, Oxygen, Wheelchair (manual) (O2 2L at night, ) ? Home Health Receiving home health: No ? Hemodialysis or Peritoneal Dialysis Undergoing hemodialysis or peritoneal dialysis: No ? Tube/Enteral Feeds Receive tube/enteral feeds: No ? Infusion Receive infusions: No ? Private Duty Private duty help used: No ? Home and Community Based Services Home and community based services: No ? Edy Waller: No ? Hospice Hospice: No ? Outpatient Therapy PT: In the past When did patient receive care?: 2016 Name of rehab location/group: [facility] Would patient return for future services?: Yes OT: In the past When did patient receive care?: 2017 Name of rehab location/group: [facility] Would patient return for future services?: Yes PRODUCT/DEVICE TECHNOLOGIST: No ? Intermediate Facility/Residential SNF: No NH: No ? Inpatient Rehab IPR: In the past When did patient receive care?: 2016 Name of Facility: [facility] Would patient return for future services?: Yes ? Long-Term Acute Care Hospital LTACH: No ? Acute Hospital Stay Acute Hospital Stay: No Carrie Orozco RN Nurse Elementary Principal * Anesthesia Post Op Day 1 - Solis Brown SRNA - 02/16/2018 10:05 AM CDT Formatting of this note may be different from the original. Anesthesia Follow-Up Evaluation: Post-Procedure Day One Name: Lona Rollins : 1950 Age: 67 y.o. Sex: female Procedure Date: 02/15/2018 Procedure: Procedure(s) with comments: CERVICAL LYMPHADENECTOMY - CASE LENGTH 2 HOURS COMPOSITE RESECTION WITH NECK DISSECTION Physical Assessment Height: 160 cm (63") Weight: 85.9 kg (189 lb 6.4 oz) Vital Signs (Last Filed in 24 hours) BP: 137/66 (02/16 934) Temp: 36.9 C (98.4 F) (02/16 934) Pulse: 85 (02/16 934) Respirations: 16 PER MINUTE (02/16 934) SpO2: 93 % (02/16 934) O2 Delivery: Nasal Cannula (02/16 934) SpO2 Pulse: 87 (02/15 1745) Patient History Allergies Allergies Allergen Reactions Levaquin [Levofloxacin] SEE COMMENTS C Diff Rocephin [Ceftriaxone] HEADACHE, NAUSEA ONLY and DIZZINESS Medications Scheduled Meds: ampicillin/sulbactam (UNASYN) 3 g in sodium chloride 0.9% (NS) 100 mL IVPB (MB+ ) 3 g Intravenous Q6H* budesonide/formoterol (SYMBICORT HFA) 160/4.5 mcg inhalation 2 puff 2 puff Inhalation BID famotidine (PEPCID) tablet 20 mg 20 mg Oral BID heparin (porcine) PF syringe 5,000 Units 5,000 Units Subcutaneous Q8H montelukast (SINGULAIR) tablet 10 mg 10 mg Oral QHS pravastatin (PRAVACHOL) tablet 10 mg 10 mg Oral QHS senna/docusate (SENOKOT-S) tablet 1 tablet 1 tablet Oral BID sertraline (ZOLOFT) tablet 50 mg 50 mg Oral QDAY Continuous Infusions: sodium chloride 0.45 % with KCl 20 mEq/L infusion 75 mL/hr at 02/15/18 2126 PRN and Respiratory Meds:acetaminophen Q4H PRN, albuterol 0.083% Q4H PRN, bisacodyl QDAY PRN, diphenoxylate/atropine QID PRN, milk of magnesia (CONC) QDAY PRN, morphine injection syringe Q2H PRN, ondansetron (ZOFRAN) IV Q6H PRN, oxyCODONE/acetaminophen Q4H PRN Diagnostic Tests Hematology: Lab Results Component Value Date HGB 13.1 02/16/2018 HCT 39.1 02/16/2018 PLTCT 291 02/16/2018 WBC 16.8 02/16/2018 NEUT 46.5 01/07/2018 ANC 5.0 01/07/2018 ALC 4.4 01/07/2018 MCV 95.3 02/16/2018 MCH 31.9 02/16/2018 MCHC 33.5 02/16/2018 MPV 8.9 02/16/2018 RDW 13.5 02/16/2018 General Chemistry: Lab Results Component Value Date NA 137 02/16/2018 K 4.3 02/16/2018 CL 104 02/16/2018 CO2 27 02/16/2018 GAP 6 02/16/2018 BUN 11 02/16/2018 CR 0.70 02/16/2018 GLU 144 02/16/2018 GLU 97 01/07/2018 CA 9.1 02/16/2018 MG 1.7 01/22/2018 Coagulation: No results found for: PT, PTT, INR Follow-Up Assessment Patient location during evaluation: floor Anesthetic Complications: Anesthetic complications: The patient did not experience any anesthestic complications. Pain: Score: 7 Management:inadequate Level of Consciousness: awake and alert Hydration:acceptable Airway Patency: patent Respiratory Status: acceptable and nasal cannula (2L) Cardiovascular Status:acceptable, hemodynamically stable and stable Regional/Neuroaxial: Comments: PONV on wakeup that quickly resolved, denies current N/V; pt states that pain is not well controlled and nurse said doctor had been notified of pain * Operative Report (Direct Entry) - Gopi Mott MD - 02/15/2018 4:10 PM CDT Formatting of this note may be different from the original. OPERATIVE REPORT Name: Lona Rollins is a 67 y.o. 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 Excised with cuff of normal mucosa, anteriorly abutting alveolus. 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 Second re-resection negative for malignancy. Bilateral supraomohyoid neck dissection performed. 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 Description and Findings of Operative Procedure: The patient was met by the attending surgeon and the assistant to the dean surgeon in the preoperative area. There, the risks and benefits of the procedure have been superior discussed and informed consent was obtained.The patient was brought to operating room and placed on the operating table in supine position. Time- out was called to confirm correct site and patient. After this was done, the patient was sedated and orally intubated. The patient's eyes were lubricated and taped. Eye goggles were then placed. The patient was rotated 90 degrees in clockwise fashion. Head wrap and shoulder or set up in the standard fashion. A curvilinear incision was drawn along both sides of the neck. We then injected 6 cc of 1% lidocaine with 1-100,000 epinephrine into our intended surgical site. The patient's mouth, face, neck were prepped and draped in the standard sterile fashion. We then began the resection of the tumor.This was a 0.5 x 0.5 centimeter tumor focused on the right floor of mouth, just lateral to Warton's duct. A plastic cheek retractor was placed for adequate exposure. 1 cm mucosal margin was then marked out on the patient using the coag function on the Bovie. The extent of the incision incorporated both Letty's ducts and anteriorly to the mandibular alveolus. The ventral tongue mucosa and underlying deep tongue muscle was also included as a posterior margin around the tumor. The mucosa was incised over the mandible and a freer used to lift the lingual aspect of the mucosa off. Monopolar cautery was then used to resect the specimen circumferentially and then deeply. A 2-0 silk stitch was placed anteriorly and medially to marked the specimen orientation. This was sent off to pathology as permanent. Hemostasis was then achieved with bipolar cautery. We then proceeded to take mucosal margins and deep margins from the surgical bed and these were sent to pathology. Initial posterior frozen section positive for carcinoma in situ. This region was re-resected. Frozen sections were negative for malignancy. We then turned to reconstruction of the mouth. Rotational advancement flaps were fashioned from the [place] labial, buccal and floor of mouth mucosa surrounding the defect by undermining these tissues and including the underlying muscle in the flaps. This was accomplished with blunt and sharp dissection. 3-0 vicryl sutures were used in a horizontal mattress fashion to achieve a watertight closure while repositioning muscle and mucosa to optimize the neosulcus. We continued forward with bilateral modified neck dissection. We made incision with 15 scalpel blade over the previously marked neck incision line through the skin and subcutaneous tissue. Further dissection was carried through the platysma layer with 15 blade scalpel with particular attention to identifying and preserving the external jugular veins. Superior and inferior subplatysmal flaps were raised using 15 blade scalpel and retracted away with fish hooks. We first performed neck dissection on the right. The deep cervical fascia was carefully raised off of the submandibular gland from inferiorly to superiorly. With the submandibular gland exposed, it was then carefully dissected out circumferentially. The facial vein and artery were identified at the superior aspect of the gland and carefully ligated with clips. The anterior and posterior digastric were visualized and skeletonized. The mylohyoid muscle was visualized and retracted anteriorly. With additional dissection medially and retraction of the gland out laterally, the lingual nerve was found superiorly and dissected away from the gland. The submandibular duct was isolated and ligated, releasing the submandibular gland and associated level I lymph node tissue. We sent this tissue as permanent specimen. Deep to the digastric muscle , we were able to find the hypoglossal nerve, which was intact. We then used monopolar cautery to transect level IA down to the mylohyoid and inferiorly to the hyoid. We then proceeded with dissecting out lymph nodes at level II-IV. The anterior border of the sternocleidomastoid was skeletonized. As we moved superiorly, we identified the spinal accessory nerve and isolated it with our dissection as well. Medially, we then released the lymph node tissue from the internal jugular vein down to the floor of the neck. We then dissected the level II-IV lymph nodes from the floor superiorly to inferiorly just below the level of the omohyoid until the lymph node tissue was excised out in one piece and sent as permanent specimen. The carotid sheath was visualized and seen to be intact. It was sent as permanent specimen. We then turned our attention to performing neck dissection on the left. As similarly done on the right, the submandibular gland and other surrounding lymph nodes in the level IB region were dissected out as one specimen in similar fashion. The left lingual and hypoglossal nerves were identified and preserved. The left submandibular duct as well as branches of the facial artery and vein were ligated, releasing the level IB specimen, which was sent as permanent. We continued with level II-IV lymph node dissection as similarly done on the left. The spinal accessory nerve was identified at the superior extent of our excision, skeletonized, and preserved. The lymph node tissue was dissected from the floor of the neck without issue and sent as one permanent specimen. The carotid sheath contents including vagus nerve were found to be intact. The wound was irrigated copiously with saline solution, and hemostasis was controlled with Bipolar cautery. Two 19-Cape Verdean drain were placed on each side of the neck in standard fashion and secured to the skin with a 2.0 Silk stitch. The platysma and deep dermal layers were reapproximated with buried interrupted suture of 3-0 and 4-0 vicryl sutures. The skin was closed with 5-0 running prolene. The incision wound was cleaned and applied Bacitracin ointment. There was intraoral bleeding at the end of the case. Additional sutures were placed along the ventral tongue with hemostasis confirmed. The patient was turned back over to the care of the Anesthesia team and was allowed to awaken and be extubated without incident. All counts were correct. The patient was eventually transferred to the recovery room in stable condition. Dr. Mott was present for and participated in the vera portions of the procedure. Estimated Blood Loss: 150 cc Specimen(s) Removed/Disposition: ID Type Source Tests Collected by Time Destination 1 : ANTERIOR MUCOSAL MARGIN Tissue Buccal Mucosa SURGICAL PATHOLOGY Gopi Mott MD 02/15/2018 1443 2 : POSTERIOR MUCOSAL MARGIN Tissue Buccal Mucosa SURGICAL PATHOLOGY Gopi Mott MD 02/15/2018 1443 3 : DEEP MUCOSAL MARGIN Tissue Buccal Mucosa SURGICAL PATHOLOGY Gopi Mott MD 02/15/2018 1444 4 : RIGHT FLOOR OF MOUTH LESION SINGLE=ANTERIOR, DOUBLE=MEDIAL Tissue Mouth SURGICAL PATHOLOGY Gopi Mott MD 02/15/2018 1446 5 : LEFT LEVEL ONE NECK DISSECTION - BRCF/ROUTINE Tissue Neck,Left SURGICAL PATHOLOGY Gopi Mott MD 02/15/2018 1506 6 : LEVEL ONE A NECK DISSECTION - BRCF/ROUTINE Tissue Neck,Left SURGICAL PATHOLOGY Gopi Mott MD 02/15/2018 1508 7 : RERESECTION OF POSTERIOR MUCOSAL MARGIN- BRCF/ROUTINE Tissue Buccal Mucosa SURGICAL PATHOLOGY Gopi Mott MD 02/15/2018 1514 8 : POSTERIOR MUCOSAL MARGIN #2 - FROZEN Tissue Buccal Mucosa SURGICAL PATHOLOGY Gopi Mott MD 02/15/2018 1516 9 : LEFT NECK DISSECTION - BRCF/'ROUTINE Tissue Neck,Left SURGICAL PATHOLOGY Gopi Mott MD 02/15/2018 1524 10 : RIGHT LEVEL 1B NECK DISSECTION Tissue Neck,Right SURGICAL PATHOLOGY Gopi Mott MD 02/15/2018 1531 11 : RIGHT NECK DISSECTION - BRCF/ROUTINE Tissue Neck,Right SURGICAL PATHOLOGY Gopi Mott MD 02/15/2018 1539 Drains:19 Fr HONEY x 2 Complications: none Dispo: to PACU Jacquelyn Marquez MD Pager * Procedures (Immed Post or Bedside) - Gopi Mott MD - 02/15/2018 3:53 PM CDT Formatting of this note may be different from the original. Brief Operative Note - Otolaryngology-Head and Neck Surgery Pre-Operative Diagnosis: oral cancer Post-Operative Diagnosis: same Procedure(s): Floor of mouth resection Partial glossectomy Complex vestibuloplasty Bilateral modified radical neck dissection Surgeon(s): Rafaela Etl Analyst Surgeon(s): Steven Marquez Estimated Blood Loss: 150 cc Specimen(s): sent to pathology Findings: negative final frozen section margins Complications: None ATTESTATION I performed this procedure with a resident. Staff name: Gopi Mott MD Date: 02/15/2018 in this encounter Plan of Treatment Name Priority Associated Diagnoses Order Schedule SURGICAL PATHOLOGY Routine Oral cancer (HCC) ONCE for 1 Occurrences starting 02/15/2018 as of this encounter Procedures Procedure Name Priority Date/Time Associated Diagnosis Comments ECG-SCAN 02/22/2018 Results for this 9:07 AM CDT procedure are in the results section. TELEMETRY STRIPS-SCAN 02/22/2018 Results for this 9:07 AM CDT procedure are in the results section. COMPOSITE RESECTION WITH 02/15/2018 Oral cancer (HCC) NECK DISSECTION 11:20 AM CDT CERVICAL LYMPHADENECTOMY 02/15/2018 Oral cancer (HCC) 11:20 AM CDT in this encounter Results * PATHOLOGY INTEROPERATIVE REPORT SCAN (03/09/2018 [...] then created around the wire. A 14 [place] telescoping sheath was then placed over the [...] then created around the wire. A 14 [place] telescoping sheath was then placed over the [...] on 02/17/2018 3:44 PM. Performing Organization Address City/[facility] Phone Number [facility] RESULTS * PHOSPHORUS (02/17/2018 5:22 AM) Phosphorus 2.1 2.0 - 4.0 MG/DL MAIN LAB Specimen Blood Performing Organization Address [facility] Phone Number [facility] [address] [place] [address] * MAGNESIUM (02/17/2018 5:22 AM) Magnesium 1.6 1.6 - 2.6 mg/dL MAIN LAB Specimen Blood Performing Organization Address [facility] Phone Number [facility] [address] [place] [address] * BASIC METABOLIC PANEL (02/17/2018 5:22 AM) Sodium 138 137 - 147 MMOL/L [facility] [...] for questions. Specimen Blood Performing Organization Address City/[facility]/Zipcode Phone Number MAIN LAB [address] [phone] * BASIC METABOLIC PANEL (02/16/2018 6:25 AM) Sodium 137 137 - 147 MMOL/L [facility] Potassium 4.3 3.5 - 5.1 MMOL/L [facility] Chloride 104 98 - 110 MMOL/L [facility] CO2 27 21 - 30 MMOL/L [facility] Anion Gap 6 3 - 12 [facility] Glucose 144 (H) 70 - 100 MG/DL [facility] Blood Urea Nitrogen 11 7 - 25 MG/DL [facility] Creatinine 0.70 0.4 - 1.00 MG/DL [facility] Calcium 9.1 8.5 - 10.6 MG/DL [facility] [...] for questions. Specimen Blood Performing Organization Address City/[facility]/Zipcode Phone Number MAIN LAB [address] [place] [address] * CBC (02/16/2018 6:25 AM) White Blood Cells 16.8 (H) 4.5 - 11.0 K/UL [facility] RBC 4.10 4.0 - 5.0 M/UL [facility] Hemoglobin 13.1 12.0 - 15.0 GM/DL [facility] Hematocrit 39.1 36 - 45 % [facility] MCV 95.3 80 - 100 FL [facility] MCH 31.9 26 - 34 PG [facility] MCHC 33.5 32.0 - 36.0 G/DL [facility] RDW 13.5 11 - 15 % [facility] Platelet Count 291 150 - 400 K/UL [facility] MPV 8.9 7 - 11 FL [facility] Specimen Blood Performing Organization Address City/State/Zipcode Phone Number [facility] [address] [place] [address] * SURGICAL PATHOLOGY (02/15/2018 2:52 PM) PATHOLOGY REPORT [email or web address] Department of Pathology and Laboratory Medicine [address] [place] [address] Surgical Pathology Office:[phone] :[phone] SURGICAL PATHOLOGY REPORT NAME: LONA ROLLINS SURG PATH #: [id number] MR #: [id number] SPECIMEN CLASS: [facility] BILLING #: [id number] ALT ID #:LOCATION: [facility] DATE OF PROCEDURE: 02/15/2018 AGE:67 SEX: F DATE RECEIVED: 02/15/2018 : 1950TIME RECEIVED:14:52 PHYSICIAN: GOPI MOTT MD DATE OF REPORT: 02/18/2018 COPY [...] of invasive carcinoma in the biopsy tissue. ([id number]). --------- LIP AND ORAL CAVITY: Excisional Biopsy, [...] at the time the report is issued. [id number] For All Carcinomas Primary Tumor (pT): pTis:Carcinoma [...] placed in cassette A1FS for permanent diagnosis. ([facility]) B. Received fresh, labeled with patient's name and "posterior mucosal margin" is a 3.1 x 0.5 x 0.4 cm white-boudreaux tissue fragment. The specimen is bisected and is submitted entirely for frozen consultation with the remnant placed in cassette B1FS for permanent diagnosis. ([facility]) C. Received fresh, labeled with patient's [...] Remainder of specimen from medial to lateral. ([facility]) E. Received fresh, labeled with the patient's name and "posterior mucosal margin #2" is a 3.3 x 0.5 x 0.3 white-boudreaux tissue fragment. The specimen is submitted entirely for frozen consultation with the remnant placed in cassette E1FS for permanent diagnosis. ([facility]) F. Received fresh labeled with the patient's name and "left level one neck dissection" is an 8 gram, 4.0 x 2.7 x 1.5 cm boudreaux-brown lobulated mandibular gland. The specimen is serially sectioned to reveal a boudreaux-brown cut surface without nodules or masses. No lymph nodes are grossly identified. Tile Finisher sections of the submandibular gland are submitted in cassettes F1-F2. (va) G. Received fresh labeled with the patient's name and "level 1A neck dissection" is a 4.6 x 3.0 x 1.0 cm portion of yellow-boudreaux lobulated fibroadipose tissue. The specimen is serially sectioned to reveal two pink-boudreaux possible lymph nodes measuring 0.6 and 0.5 cm in greatest dimension. The specimen is submitted entirely as follows: G1Two bisected lymph nodes (one inked black). G2-W0Amfgmsfoo fibroadipose tissue. (va) H. Received fresh labeled with the patient's name and "reresection of posterior mucosal margin" is a specimen consisting of two fragments of pink-boudreaux mucosa measuring 1.8 x 0.8 x 0.6 cm and 1.8 x 1.0 x 0.5 cm. The specimen is submitted without sectioning in cassette H1. (va) I. Received fresh labeled with the patient's name and "left neck dissection" is a 12.2 x 2.9 x 0.6 cm portion of boudreaux-yellow lobulated fibroadipose tissue. The specimen is palpated to reveal multiple pink-boudreaux lymph nodes ranging from 0.2 cm to 1.8 cm in greatest dimension. The specimen is submitted entirely as follows: I1-O1Heenypeg whole lymph nodes in each cassette. I3One bisected lymph node. I4One fragments of possible lymph node. I5-T3Ncsqdbcvg fibroadipose tissue. (va)J. Received fresh, labeled with the patient's name and "right level IB neck dissection" is a 5.2 x 3.5 x 1.7 cm white-boudreaux to pale yellow tissue fragment, which is grossly consistent with submandibular gland. The entire specimen is palpated to reveal no apparent lymph nodes. The specimen is serially sectioned to reveal a white-boudreaux to pale yellow lobulated cut surface. Tile Finisher sections are submitted in cassettes J1 and J2. ([facility])K. Received fresh labeled with the patient's [...] of fibroadipose tissue and possible lymph nodes. ([facility]) jrt/02/15/2018 Intraoperative Consultation: A1FS, squamous mucosa, "anterior mucosal margin", biopsy: Negative for malignancy. B1FS, squamous mucosa, "posterior mucosal margin", biopsy: Squamous cell carcinoma in situ. C1FS, skeletal muscle, "deep mucosal margin", biopsy: Negative for malignancy. E1FS, Squamous mucosa, "posterior mucosal margin #2 for frozen", biopsy: Negative for high-grade dysplasia or malignancy.Frozen section performed at the [facility], [address] [place] [address]. Mónica Courtney MD Performing Organization Address City/State/Zipcode Phone Number [facility] RESULTS in this encounter Visit Diagnoses Diagnosis Oral cancer (HCC) - Primary Malignant neoplasm of mouth, unspecified site Cancer of oral cavity (HCC) Malignant neoplasm of mouth, unspecified site Chronic obstructive pulmonary disease, unspecified COPD type (HCC) On home oxygen therapy Dependence on supplemental oxygen Tobacco abuse, in remission Personal history of tobacco use, presenting hazards to health PAD (peripheral artery disease) (HCC) Peripheral vascular disease, unspecified Dry gangrene (HCC) Gangrene PSVT (paroxysmal supraventricular tachycardia) (HCC) Paroxysmal supraventricular tachycardia Palpitations AVNRT (AV jovan re-entry tachycardia) (HCC) Other specified cardiac dysrhythmias Chest pain, unspecified type Cerebrovascular accident (CVA) due to thrombosis of precerebral artery (HCC) Admitting Diagnoses Diagnosis Oral cancer (HCC) - Oral cancer (HCC) [C06.9] Malignant neoplasm of mouth, unspecified site Cancer of oral cavity (HCC) Administered Medications Medication Order MAR Action Action Date Dose Rate Site acetaminophen (TYLENOL) oral solution Given 02/16/2018 650 mg 650 mg 16:02 CDT 650 mg, Oral, EVERY 4 HOURS PRN, Starting Tu02/16/18 at 1525, Until Thu02/18/18 at 1807, Pain non-opioid: may be used alone or in combination with opioid analgesia, TOTAL ACETAMINOPHEN DOSE NOT TO EXCEED 4GM DAILY acetaminophen (TYLENOL) oral solution Given 02/19/2018 650 mg 650 mg 09:12 CDT 650 mg, Feeding Tube, EVERY 4 HOURS PRN, Starting Thu02/18/18 at 1804, Until Thu02/19/18 at 1528, Pain non-opioid: may be used alone or in combination with opioid analgesia, TOTAL ACETAMINOPHEN DOSE NOT TO EXCEED 4GM DAILY Given 02/19/2018 650 mg 13:20 CDT albuterol 0.083% (PROVENTIL; VENTOLIN) nebulizer solution 2.5 mg 2.5 mg, Inhalation, RT EVERY 4 HOURS PRN, Starting Thu02/16/18 at 0619, Until Thu02/19/18 at 1528, RT PROTOCOL, When administered by RT, will be per RT policy. ampicillin/sulbactam (UNASYN) 3 g in Given - New 02/17/2018 3 g 100 mL/ hr sodium chloride 0.9% (NS) 100 mL IVPB Bag 21:59 CDT (MB+) 3 g, Intravenous, 100 mL, Administer over 60 Minutes, EVERY 6 HOURS, First dose on Thu02/15/18 at 2000, Until Discontinued Given - New Bag 02/18/2018 3 g 100 mL/hr 03:56 CDT Given - New Bag 02/18/2018 3 g 100 mL/hr 09:45 CDT apixaban (ELIQUIS) tablet 5 mg Given 02/18/2018 5 mg 5 mg, SEE ADMIN INSTRUCTIONS, TWICE 21:55 CDT DAILY, First dose on Thu02/18/18 at 2100, Until Discontinued, May crush 5 mg or 2.5 mg tablets and suspend in 60 mL of D5W followed by immediate delivery through a nasogastric tube. No information regarding administration of suspension by mouth is available. NOTE: This is a HIGH ALERT Medication. Given 02/19/2018 5 mg 09:11 CDT diphenoxylate/atropine (LOMOTIL) 2.5/0.025 mg tablet 1 tablet 1 tablet, Feeding Tube, FOUR TIMES DAILY PRN, Starting Thu02/18/18 at 1805, Until Thu02/19/18 at 1528, Diarrhea, Note: Max 8 tabs/day (20 mg diphenoxylate) famotidine (PEPCID) tablet 20 mg Given 02/17/2018 20 mg 20 mg, Oral, TWICE DAILY, First dose on 08:29 CDT 02/15/18 at 2100, Until Discontinued Given 02/18/2018 20 mg 09:45 CDT famotidine (PEPCID) tablet 20 mg Given 02/18/2018 20 mg 20 mg, Feeding Tube, TWICE DAILY, First 21:55 CDT dose on Odalys 02/18/18 at 2100, Until Discontinued Given 02/19/2018 20 mg 09:11 CDT fentaNYL citrate PF (SUBLIMAZE) Given 02/17/2018 50 mcg injection 50 mcg 15:16 CDT 50 mcg, Intravenous, ONCE, 1 dose, Thu02/17/18 at 1415 fentaNYL citrate PF (SUBLIMAZE) Given 02/17/2018 50 mcg injection 15:23 CDT INTRA-PROCEDURE MED, Starting Thu02/17/18 at 1523, Until Thu02/17/18 at 1523 fentaNYL citrate PF (SUBLIMAZE) Given 02/17/2018 50 mcg injection 15:27 CDT INTRA-PROCEDURE MED, Starting Thu02/17/18 at 1527, Until Thu02/17/18 at 1527 glucagon (human recombinant) injection Given 02/17/2018 1 mg INTRA-PROCEDURE MED, Starting Thu02/17/18 15:21 CDT at 1521, Until Thu02/17/18 at 1521 heparin (porcine) PF syringe 5,000 Units Given 02/16/2018 5,000 Units Abdominal 5,000 Units, Subcutaneous, EVERY 8 05:31 CDT Tissue HOURS, First dose on Thu02/16/18 at 0600, Until Discontinued, NOTE: This is a HIGH ALERT Medication. Given 02/16/2018 5,000 Units Abdomen:LLQ 13:37 CDT heparin (porcine) PF syringe 5,000 Units Given 02/16/2018 5,000 Units Abdominal 5,000 Units, Subcutaneous, EVERY 8 21:05 CDT Tissue HOURS, 1 dose, First dose on Thu02/16/18 at 2200, NOTE: This is a HIGH ALERT Medication. heparin (porcine) PF syringe 5,000 Units Given 02/18/2018 5,000 Units Abdominal 5,000 Units, Subcutaneous, EVERY 8 06:02 CDT Tissue HOURS, First dose on Odalys 02/18/18 at 0645, Until Discontinued, NOTE: This is a HIGH ALERT Medication. INHALATIONAL SPACING DEVICE MISC SPCR Given 02/17/2018 1 each (Cabinet Override) 17:35 CDT NOW, 1 dose, Thu02/17/18 at 1745, Created by cabinet override lactated ringers infusion Given - New 02/15/2018 1,000 mL 20 mL/hr 1,000 mL, 1,000 mL, Intravenous, at 20 Bag 10:19 CDT mL/hr, CONTINUOUS, Starting Thu02/15/18 at 0945, Until Thu02/15/18 at 1833, Pre-Op Given - New Bag 02/15/2018 13:55 CDT Given - New Bag 02/15/2018 14:59 CDT LACTATED RINGERS IV SOLP (Cabinet Override) NOW, 1 dose, Thu02/15/18 at 0945, Created by cabinet override lidocaine PF 1% (10 mg/mL) injection Given 02/15/2018 2 mL 0.1-2 mL 10:19 CDT 0.1-2 mL, Injection, NEEDED, Starting Thu02/15/18 at 1042, Until Thu02/15/18 at 1827, Other..., for IV insertion, Pre-Op magnesium sulfate 1 g/D5W 100 mL IVPB Given - New 02/17/2018 1 g 100 mL/hr 1 g, Intravenous, 100 mL, Administer Bag 11:15 CDT over 1 Hours, ONCE, 1 dose, Thu02/17/18 at 0745, Each 1gm delivers 8.1 mEq Magnesium. midazolam (VERSED) injection 1-2 mg Given 02/17/2018 1 mg 1-2 mg, Intravenous, ONCE, 1 dose, Thu 15:14 CDT 02/17/18 at 1415 midazolam (VERSED) injection Given 02/17/2018 1 mg INTRA-PROCEDURE MED, Starting Thu02/17/18 15:21 CDT at 1521, Until Thu02/17/18 at 1521 midazolam (VERSED) injection Given 02/17/2018 1 mg INTRA-PROCEDURE MED, Starting Thu02/17/18 15:25 CDT at 1525, Until Thu02/17/18 at 1525 milk of magnesia (CONC) oral suspension 10 mL 10 mL, Feeding Tube, DAILY PRN, Starting Thu02/18/18 at 1805, Until Thu02/19/18 at 1528, Constipation PO, 10 mL CONC=30 mL MOM montelukast (SINGULAIR) tablet 10 mg Given 02/18/2018 10 mg 10 mg, Feeding Tube, AT BEDTIME DAILY, 21:55 CDT First dose on Thu02/18/18 at 2100, Until Discontinued morphine injection syringe 1-4 mg Given 02/17/2018 1 mg 1-4 mg, Intravenous, EVERY 2 HOURS PRN, 17:40 CDT Starting 02/15/18 at 1828, Until Thu02/19/18 at 1528, Pain Injectable, - Use only in case of pain not controlled by oral pain medication or if patient is NPO status. Given 02/17/2018 2 mg 19:52 CDT Given 02/18/2018 2 mg 00:42 CDT ondansetron (ZOFRAN) injection 4 mg Given 02/16/2018 4 mg 4 mg, Intravenous, EVERY 6 HOURS PRN, 05:37 CDT Starting 02/15/18 at 1828, Until Thu02/19/18 at 1528, Nausea/Vomiting Injectable Given 02/16/2018 4 mg 10:07 CDT ondansetron (ZOFRAN) tablet 4 mg Given 02/19/2018 4 mg 4 mg, Per G Tube, EVERY 6 HOURS PRN, 06:07 CDT Starting Thu02/19/18 at 0601, Until Thu02/19/18 at 1528, Nausea/Vomiting PO oxyCODONE/acetaminophen (PERCOCET; Given 02/18/2018 1 tablet ENDOCET; ROXICET) 5/325 mg tablet 1 03:56 CDT tablet 1 tablet, Oral, EVERY 4 HOURS PRN, Starting 02/15/18 at 1828, Until Thu02/18/18 at 1807, Pain PO, TOTAL ACETAMINOPHEN DOSE NOT TO EXCEED 4GM DAILY oxyCODONE/acetaminophen (PERCOCET; Given 02/18/2018 1 tablet ENDOCET; ROXICET) 5/325 mg tablet 1 19:42 CDT tablet 1 tablet, Feeding Tube, EVERY 4 HOURS PRN, Starting Thu02/18/18 at 1805, Until Thu02/19/18 at 1528, Pain PO, TOTAL ACETAMINOPHEN DOSE NOT TO EXCEED 4GM DAILY Given 02/19/2018 1 tablet 05:39 CDT pancrelipase 20,000 Units/ sodium bicarbonate 650 mg(#) ([facility] CLOG DESTROYER) for occluded feeding tube cap 1 capsule 1 capsule, Feeding Tube, NEEDED (ENROLLMENT MANAGEMENT MANAGER FROM RX), Starting Odalys 02/18/18 at 1022, Until Thu02/19/18 at 1528, Other..., Occluded Feeding Tube, 1. Open one [facility] CLOG DESTROYER CAPSULE (pancrelipase 20,000 units/ sodium bicarbonate 650 mg) and pour contents into mortar cup. 2. Dissolve in 5 - 10 ml sterile water. This will take ~ 1-2 minutes, with stirring required. Some sediment will be present (likely from capsule ingredients). 3. Once dissolved, let solution sit for 1-2 minutes, allowing sediment to fall to bottom of mortar cup. 4. Draw enzyme/bicarbonate solution into oral syringe (avoid sediment as best possible). 5. Instill enzyme solution under light pressure, and use a light "back and forth" motion with plunger to help dislodge the clog. 6. Clamp the tube for 5-15 minutes, and then try to aspirate or flush with warm sterile water. May repeat x 1. Notify physician if tube remains occluded following administration. pancrelipase 20,000 Units/ sodium bicarbonate 650 mg(#) ([facility] CLOG DESTROYER) for occluded feeding tube cap 1 capsule 1 capsule, Feeding Tube, NEEDED (ENROLLMENT MANAGEMENT MANAGER FROM RX), Starting Thu02/19/18 at 0642, Until Thu02/19/18 at 1528, Other..., Occluded Feeding Tube, 1. Open one [facility] CLOG DESTROYER CAPSULE (pancrelipase 20,000 units/ sodium bicarbonate 650 mg) and pour contents into mortar cup. 2. Dissolve in 5 - 10 ml sterile water. This will take ~ 1-2 minutes, with stirring required. Some sediment will be present (likely from capsule ingredients). 3. Once dissolved, let solution sit for 1-2 minutes, allowing sediment to fall to bottom of mortar cup. 4. Draw enzyme/bicarbonate solution into oral syringe (avoid sediment as best possible). 5. Instill enzyme solution under light pressure, and use a light "back and forth" motion with plunger to help dislodge the clog. 6. Clamp the tube for 5-15 minutes, and then try to aspirate or flush with warm sterile water. May repeat x 1. Notify physician if tube remains occluded following administration. pravastatin (PRAVACHOL) tablet 10 mg Given 02/18/2018 10 mg 10 mg, Feeding Tube, AT BEDTIME DAILY, 21:55 CDT First dose on Thu02/18/18 at 2100, Until Discontinued senna/docusate (SENOKOT-S) tablet 1 Given 02/17/2018 1 tablet tablet 08:36 CDT 1 tablet, Oral, TWICE DAILY, First dose on Thu02/15/18 at 2100, Until Discontinued, Hold for loose stools Given 02/18/2018 1 tablet 09:45 CDT senna/docusate (SENOKOT-S) tablet 1 Given 02/18/2018 1 tablet tablet 21:55 CDT 1 tablet, Per G Tube, TWICE DAILY, First dose on Thu02/18/18 at 2100, Until Discontinued, Hold for loose stools Given 02/19/2018 1 tablet 09:12 CDT sertraline (ZOLOFT) tablet 50 mg Given 02/16/2018 50 mg 50 mg, Oral, DAILY, First dose on Thu 09:18 CDT 02/16/18 at 0900, Until Discontinued Given 02/18/2018 50 mg 09:45 CDT sertraline (ZOLOFT) tablet 50 mg Given 02/19/2018 50 mg 50 mg, SEE ADMIN INSTRUCTIONS, DAILY, 09:11 CDT First dose on Thu02/19/18 at 0900, Until Discontinued, Per tube sodium chloride 0.45 % with KCl 20 Given - New 02/17/2018 75 mL/hr mEq/L infusion Bag 06:03 CDT 1,000 mL, Intravenous, at 75 mL/hr, CONTINUOUS, Starting Thu02/15/18 at 1830, Until Thu02/19/18 at 0707 Given - New Bag 02/17/2018 75 mL/hr 22:00 CDT Given - New Bag 02/18/2018 75 mL/hr 09:45 CDT in this encounter
--- OUTSIDE RECORDS SUMMARY | 2018-03-18 19:58 | XMS REPORT | Encounter Summary ---
Author Author [facility] Organization [facility] Address Unknown Phone Unavailable Care Team Providers Care Millwright Apprentice Name Role Phone Darling Cespedes DO Unavailable Unavailable Herman CastrejonD Unavailable Unavailable Didi Louie HYDROGENATION STILL OPERATOR PCP Reason for Visit * Auth/Cert Status Reason Specialty Diagnoses / Referred By Referred To Procedures Contact Contact Diagnoses Oral cancer (HCC) Oral cancer (HCC) [C06.9] P rocedures [place] CERVICAL LYMPHADEC MODIFIED RADICAL NECK DSJ [place] GLSSC COMPOSIT RESCJ FLR MNDBLR RESCJ & RAD NECK [place] SPLIT AGRFT F/S/N/H/F/G/M/D GT 1ST 100 CM/</1 % CERVICAL LYMPHADENECTOMY COMPOSITE RESECTION WITH NECK DISSECTION Face STSG Encounter Details Date Type Department Care Team Description 02/15/2018 Surgery CA Operating Room Gopi Mott MD CERVICAL LYMPHADENECTOMY [address] [facility] [address] [place] [address] [address] [place] [address] Social History Tobacco Use Types Packs/Day Years [...] the original. Physician Discharge Summary Name: Lona Rolilns Date Of : 1950 Age: 67 years [...] CONSULTATION NAME: LONA ROLLINS SURG PATH #: [id number] MR #: [id number] ALT ID #: LOCATION: [facility] DATE OF PROCEDURE: 01/29/2018 AGE: 67 SEX: F DATE RECEIVED: 01/29/2018 : 1950 TIME RECEIVED: 11:08 PHYSICIAN: GOPI MOTT MD DATE OF REPORT: 02/08/2018 COPY TO: DATE OF PRINTIN02/08/2018 OUTSIDE INSTITUTION: [address] [place] [address] F: [phone] ######################################################################## Final Diagnosis: A. Outside case "[id number]" (Date collected: 01/02/18): 1. Squamous mucosa, "floor [...] current mean hepatic SUV (reported for quality inspector purposes) is 2.5. Blood glucose level (at [...] post-operative course was uneventful. Patient failed bedside HEEL WASHER STRINGING MACHINE OPERATOR swallow study did have Gtube placed. On [...] of invasive carcinoma in the biopsy tissue. ([id number]). --------- LIP AND ORAL CAVITY: Excisional Biopsy, [...] or concerns regarding your hospital stay. Call [phone] Discharging attending physician: GOPI MOTT [[id number]] Tube Feeding 1 carton (250 mL) Isosource [...] sooner or change your appointment please call [phone] M-F 8am-430 pm. If you have any questions not during office hours please call [phone] and ask for the ENT Resident national sales representative. Opioid (Narcotic) Safety Information OPIOID (NARCOTIC) PAIN [...] Associated Diagnoses: AVNRT (AV jovan re-entry tachycardia) ([facility]); Palpitations montelukast (SINGULAIR) 10 mg tablet Take [...] CDT SWALLOW MOTION SERIES with GENERAL ROOM [facility] Radiology (Radiology) [address] [address] Mar 01, 2018 12:00 PM CDT VIDEO SWALLOW with Trena Hayes MA,CCC-HEEL WASHER STRINGING MACHINE OPERATOR [facility] - ENT ([facility] ENT) [facility] Level 3c [address] [facility] [address] Mar 01, 2018 2:00 PM CDT Return Patient with Herman Ramos PA-C [facility] ([facility] E[facility]) [facility] Level 3c [address] [facility] [address] Apr 22, 2018 11:00 AM CDT Return Patient with Pranav Ruiz MD [facility] Cardiology ([facility]) [facility] Hiu707 [address] [facility] [address] Apr 23, 2018 1:45 PM CDT Return Patient with Gopi Mott MD [facility] (P ENT) [facility] Level 3c [address] [facility] [address] Pending items needing follow up: Follow up ENT clinic Follow up swallow study 2 weeks Signed: Dolores Blue APRN-COMPUTER NUMERICAL CONTROL GRINDER 02/22/2018 cc: Primary Care Physician: Didi Louie Verified Referring physicians: Didi Louie APRN Additional provider(s): in this encounter Discharge Instructions * Discharge Instr - Case Management - Francisca Orozco - 02/18/2018 11:20 AM CDT You are discharging with enteral feedings through: [facility] EN feeds be delivered on day of d/c P: [phone] Please call if you have questions regarding [...] WHEN TO CALL THE DOCTOR: (Please call [phone] for severe symptoms) You have bleeding from [...] for problems or concerns related to the procedure,[phone] for Thursday-Thursday 7-5. After-hours and weekends, please [phone] and ask for the Interventional Account Receivable Associate on-call. Discharge Instructions: Caring for Your Gastrostomy [...] Amount of water used to flush tube: Rugby feeding method Fill the feeding bag with [...] from the tube site Date Last Reviewed: 02/11/201619993047-8631 [employer] [place] [address], [place] [address]. All rights reserved. This information is not [...] skin with medical tape. Date Last Reviewed: 12/12/201519998413-6616 [employer] [place] [address], [place] [address]. All rights reserved. This information is not [...] lobby at 1325 hours. * Dolores Blue APRN-COMPUTER NUMERICAL CONTROL GRINDER - 02/19/2018 12:11 PM CDT Formatting of [...] of invasive carcinoma in the biopsy tissue. ([id number]). --------- LIP AND ORAL CAVITY: Excisional Biopsy, [...] (HCC) Added automatically from request for surgery [id number] COPD (chronic obstructive pulmonary disease) (HCC) On [...] Continue inpt stay. Discharge home 02/19. Dolores Blue, HYDROGENATION STILL OPERATOR Pager [phone] * Olivia Ascencio - 02/19/2018 10:04 AM CDT CLINICAL NUTRITION Clinical Nutrition Follow-Up Summary NAME:Lona Rollins :1950 AGE: 67 y.o. ADMISSION DATE: 02/15/2018 DAYS ADMITTED: LOS: 4 days Nutrition Assessment of Patient: Estimated Calorie Needs: 7434-4187 (30-35 kcal/kg desired wt) Estimated Protein Needs: [...] partial glossectomy, complex vestibuloplasty, and bilateral MRND. HEEL WASHER STRINGING MACHINE OPERATOR recommended FLD with 100% supervision but due [...] needs Time Frame: Within [address], LD Pager: [phone] * Quynh Quintanilla RN - 02/19/2018 6:39 AM CDT I have reviewed the notes, assessments, and/or procedures performed by Esther Lopez RN, and concur with her/his documentation unless otherwise noted. * Erika Pablo RT - 02/19/2018 6:16 AM CDT Formatting of [...] Rx *Higher points indicate higher acuity. Therapist: Erika Pablo, Date: 02/19/2018 Vera AC=Airway clearance AM=Aerosolized medication BA=[place] aerosol DB&C=Deep breathe & cough FEV1=Forced expiratory volume in first second) IC=Inspiratory capacity LE=Lung expansion MDI=Metered dose inhaler Neb=Nebulizer O2=Oxygen Oxim=Oximetry PEFR=Peak expiratory flow rate TEAR DOWN MATCHER=Rapid Response Team * Coco Prabhakar - 02/18/2018 3:07 PM CDT SPEECH-LANGUAGE PATHOLOGY This dept will f/u for ongoing swallow evaluation/dysphagia tx on 02/19 as pt able to participate. Unable to see pt this date as she remains NPO s/p PEG placement on 02/17. Therapist: Coco Prabhakar MA, L/[facility]-HEEL WASHER STRINGING MACHINE OPERATOR [phone] Date: 02/18/2018 * Dolores Blue APRN-JESSICA - [...] 83 (02/18 958) Respirations: 18 PER MINUTE (08/09 0958) SpO2: 94 % (02/18 958) O2 Delivery: [...] (HCC) Added automatically from request for surgery [id number] COPD (chronic obstructive pulmonary disease) (HCC) On [...] diet due to h/o CVA and surgery. HEEL WASHER STRINGING MACHINE OPERATOR -failed bedside swallow X 2 s/p IR Gtube placement 02/17 Start Trickle TF @ 330 pm . On bowel regimen. LBM- 02/16/2018 - Afebrile, VSS - PPX- SCD's, SQH, Pepcid - Dispo: Continue inpt stay. Possibly discharge home 02/19. Dolores Blue, HYDROGENATION STILL OPERATOR Pager [phone] * Jasmine Yañez - 02/18/2018 8:50 AM [...] partial glossectomy, complex vestibuloplasty, and bilateral MRND. HEEL WASHER STRINGING MACHINE OPERATOR recommended FL diet with 100% supervision but due to poor PO intake tolerance 2/2 h/o CVA and recent surgery, plan is for G-tube placement today. PMHx also significant for RA,depression, COPD. 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 Patient reported her [...] [address],LD Pager # [phone] * Kayla Goldberg M.Div, JESSICA - 02/17/2018 11:34 AM CDT Winch Runner Note: Admit Date: 02/15/2018 The patient was resting today with her son at her bedside. She nodded to confirm that she is Christianity and would like prayer. The collar tailor prayed with the patient. If she is here next week, the collar tailor will visit again. Date/Time: User: Pager: [phone] 02/17/2018 11:34 AM Kayla Goldberg M.Div, BCC * Dolores Blue APRN-COMPUTER NUMERICAL CONTROL GRINDER - 02/17/2018 7:39 AM CDT Formatting of [...] (Last 24 hours) Glucose: (!) 111 (02/17/18 05) Radiology and other Diagnostics Review: Surgical Pathology in progress Problem List: Active Hospital Problems Diagnosis Oral cancer (HCC) Added automatically from request for surgery [id number] COPD (chronic obstructive pulmonary disease) (HCC) On [...] to h/o CVA and surgery. Discussed with HEEL WASHER STRINGING MACHINE OPERATOR -failed bedside swallow pt will be unable to maintain nutrition with po. IR Gtube today 02/17 IV fluids while NPO. On bowel regimen. LBM- 02/16/2018 - Afebrile, VSS - PPX- SCD's, SQH, Pepcid, IV Unasyn - Dispo: Continue inpt stay. Dolores Blue, HYDROGENATION STILL OPERATOR Pager [phone] * Allison Pagan RN - 02/16/2018 2:10 PM CDT IR Progress Note G tube order reviewed. Patient will require phone consent, barium has been ordered. Patient with oral CA, s/p Floor of mouth resection, Partial glossectomy , Complex vestibuloplasty Bilateral modified radical neck dissection on 02/15. LMA okay. Allison Pagan RN BSN * DimitriLorneEddieCoco - 02/16/2018 9:23 AM CDT SPEECH-LANGUAGE PATHOLOGY [...] mod cues and encouragement. Therapist:Coco Prabhakar MA, L/CCC-HEEL WASHER STRINGING MACHINE OPERATOR [phone] Date:02/16/2018 * Sera Syed RN - 02/16/2018 7:00 AM CDT Patient arrived to room # (4751) via bed accompanied by RN. Patient transferred [...] assessed as needed and per shift. RN WCSEGUNDO * Neha Barraza RT - 02/16/2018 6:19 [...] Date: 02/16/2018 Vera AC=Airway clearance AM=Aerosolized medication BA=[place] aerosol DB&C=Deep breathe & cough FEV1=Forced expiratory volume in first second) IC=Inspiratory capacity LE=Lung expansion MDI=Metered dose inhaler Neb=Nebulizer O2=Oxygen Oxim=Oximetry PEFR=Peak expiratory flow rate TEAR DOWN MATCHER=Rapid Response Team * Dolores Blue, HYDROGENATION STILL OPERATOR-COMPUTER NUMERICAL CONTROL GRINDER - 02/16/2018 5:49 AM CDT Formatting of [...] (02/15 1745) Height: 160 cm (63") (02/15 100) BP: (138-198)/(57-89) Temp: [36.4 C (97.5 F)-37.1 C (98.8 F)] Pulse: [65-94] Respirations: [12 PER MINUTE-17 PER MINUTE] SpO2: [92 %-100 %] O2 Delivery: Nasal Cannula Intensity Pain Scale 0-10 (Pain 1): 8 (02/16/18 0250) Vitals: 02/15/18 100 Weight: 85.9 kg (189 lb 6.4 oz) Drain Output: HONEY Drains HONEY Drain -# 1 RN- 36 / 32 HONEY Drain - # 2 RN -36 / Intake/Output Summary: (Last 24 hours) Intake/Output Summary [...] (HCC) Added automatically from request for surgery [id number] COPD (chronic obstructive pulmonary disease) (HCC) On [...] to h/o CVA and surgery. Will have HEEL WASHER STRINGING MACHINE OPERATOR due bedside swallow. IV fluids. On bowel regimen. LBM- RADAR TESTER - Afebrile, VSS - PPX- SCD's, SQH, Pepcid, IV Unasyn - Dispo: Continue inpt stay. Dolores Blue APRN Pager [phone] in this encounter H&P Notes * Jameson Sands APRN-COMPUTER NUMERICAL CONTROL GRINDER - 02/17/2018 2:04 PM CDT Formatting of this note may be different from the original. Pre Procedure History and Physical/Sedation Plan Procedure Date: 02/17/2018 Planned Procedure(s): G-tube placement Indication for exam: Feeding, medical center director Chief Complaint: Dysphagia 2/2 oral cancer Previous [...] previous H&P performed on 02/16/18. Jameson Sands APRN-COMPUTER NUMERICAL CONTROL GRINDER Pager [phone] * Jacquelyn Marquez MD - 02/15/2018 12:54 [...] Otolaryngology-Head and Neck Surgery Clinic at the [facility]. The patient was referred by Dr. Maguire [...] to being discharged today. * Case Mgmt DC Akanksha - Francisca Orozco - 02/19/2018 11:36 AM CDT Formatting of this note may be different from the original. Case Management Progress Note NAME:Lona Rollins : AGE: 67 y.o. ADMISSION DATE: 02/15/2018 DAYS ADMITTED: LOS: 4 days Todays Date: 02/19/2018 Plan Pt to d/c home today in the care of his paid caregivers son/daughter. NCM placed call to [facility] [employer] department P: [phone] FP [phone] and informed them that pt is d/c. Agency will contact daughter/Ratna and see if they can tack picker formula on their way home or see if they need it delivered to the house. Interventions ? Support Support: Other ? Info or Referral ? Discharge Planning NCM reviewed chart and discussed POC with HYDROGENATION STILL OPERATOR/SW ? Medication Needs ? Financial ? Legal [...] for the patient. Carrie Orozco RN Nurse Social Services Analyst * Case Mgmt DC Akanksha - Francisca Orozco - 02/18/2018 11:17 AM CDT Formatting of this note may be different from the original. Case Management Progress Note NAME:Lona Rollins : AGE: 67 y.o. ADMISSION DATE: 02/15/2018 DAYS ADMITTED: LOS: 3 days Todays Date: 02/18/2018 Plan Pt to likely d/c home with her daughter/son who are paid care providers for her to her Daughter/Jaclyn's address: [address] [place] [address] where she will have [facility] EN feeds be delivered on day of d/c P: [phone] F: [phone] Daughter updated at bedside regarding d/c planning Interventions ? Support Support: Other, Pt/Family Updates re:POC or DC Plan ? Info or Referral ? Discharge Planning NCM reviewed chart and discussed POC with HYDROGENATION STILL OPERATOR/SW ? Medication Needs ? Financial ? Legal [...] for the patient. Carrie Orozco RN Nurse Social Services Analyst * Case Mgmt DC Plan - Lorri [...] been getting assistance for lodging through the [employer]. Stated her hotel will be [...] been selected for the patient. Lorri [place] [facility] Pager:[phone] * Procedures (Immed Post or Bedside) - [...] Post-Procedure Condition: stable Eliud Hayes MD Pager [phone] * Case Mgmt DC Plan - Francisca Orozco - 02/17/2018 12:55 PM CDT Formatting of this note may be different from the original. Case Management Progress Note NAME:Lona Rollins : AGE: 67 y.o. ADMISSION DATE: 02/15/2018 DAYS ADMITTED: LOS: 2 days Todays Date: 02/17/2018 Plan Pt to likely d/c home 02/19 with G Tube feedings. Pt lives in area where [facility] P: [phone] F: [phone] [place] sent clinical/demographic to agency for delivery of EN feedings for d/c planning. Interventions ? Support Support: No Needs Identified, Pt/Family Updates re:POC or DC Plan ? Info or Referral ? Discharge Planning NCM reviewed chart and discussed POC with HYDROGENATION STILL OPERATOR/SW ? Medication Needs ? Financial ? Legal [...] for the patient. Carrie Orozco RN Nurse Social Services Analyst * Care Plan - Sera Syed RN [...] she and her brother are employees of [employer] and are paid to care for her in the home providing cooking, cleaning, transportation, medical center director, assist with therapy. Daughter states that pt has had IPR through [facility] in [place], [place] x2. Daughter states that no new orders need to be obtained at d/c for ATUL, PCP will manage all orders for [place] NCM sees no needs at d/c and will follow bedside swallow study for continued recs. Pt owns all necessarry equipment if needed at d/c: wc, rollator, SC, has O2 for nocs 2L, commode, toilet riser. NCM to continue to monitor for d/c recs Patient Address/Phone [address] [facility] [address] (home) Emergency Contact Extended Emergency Contact Information Primary Emergency Contact: Jalcyn Perea Address: [address] [place] [address] [facility] Mobile Relation: Daughter Healthcare Directive Healthcare Directive: [...] Arrangements: Children (son and daughter work as EXTRUSION DIE COORDINATOR in home for mother through [employer]) Bathroom Shower / Tub: Tub/Shower [...] with ADLs?: children/paid for as employees thru [employer] paid through [facility] plan ? Cognitive Abilities Cognitive Abilities: Alert and Oriented Financial Resources ? Coverage Primary Insurance: Medicare (A and B) Secondary Insurance: Medicaid ([facility] medicaid) Additional Coverage: (consolidated billing) ? [...] ? PCP Didi Louie, , ? [facility] [address] [facility] [address] ? Durable Medical Equipment Durable Medical Equipment [...] care?: 2016 Name of rehab location/group: [facility] Would patient return for future services?: Yes OT: In the past When did patient receive care?: 2016 Name of rehab location/group: [facility] Would patient return for future services?: Yes HEEL WASHER STRINGING MACHINE OPERATOR: No ? Long-Term Facility/Prison SNF: No NH: No ? Inpatient Rehab IPR: In the past When did patient receive care?: 2016 Name of Facility: [facility] Would patient return for future services?: Yes ? Long-[facility] Hospital LTACH: No ? Acute Hospital Stay Acute Hospital Stay: No Carrie Orozco RN Nurse Social Services Analyst * Anesthesia Post Op Day 1 - [...] KCl 20 mEq/L infusion 75 mL/hr at 02/15/186 PRN and Respiratory Meds:acetaminophen Q4H PRN, albuterol [...] met by the attending surgeon and the golf player assistant surgeon in the preoperative area. There, the [...] The extent of the incision incorporated both Wetzel's ducts and anteriorly to the mandibular alveolus. [...] Rotational advancement flaps were fashioned from the mcgrath labial, buccal and floor of mouth mucosa [...] hemostasis was controlled with Bipolar cautery. Two 19-Indonesian drain were placed on each side of [...] Mucosa SURGICAL PATHOLOGY Gopi Mott MD 02/15/2018 1447 2 : POSTERIOR MUCOSAL MARGIN Tissue Buccal Mucosa SURGICAL PATHOLOGY Gopi Mott MD 02/15/2018 1449 3 : DEEP MUCOSAL MARGIN Tissue Buccal Mucosa SURGICAL PATHOLOGY Gopi Mott MD 02/15/2018 1443 4 : RIGHT FLOOR OF MOUTH LESION [...] Bilateral modified radical neck dissection Surgeon(s): Rafaela Police Sergeant Surgeon(s): Steven Marquez Estimated Blood Loss: 150 [...] then created around the wire. A 14 Indonesian telescoping sheath was then placed over the [...] then created around the wire. A 14 Indonesian telescoping sheath was then placed over the [...] opinions expressed in this report Finalized by Leno Galloway M.D. on 02/17/2018 4:47 PM. Dictated by Eliud Hayes MD on 02/17/2018 3:44 PM. Performing Organization Address City/[facility] Phone Number RAD RESULTS * PHOSPHORUS (02/17/2018 5:22 AM) Phosphorus 2.1 2.0 - 4.0 MG/DL MAIN LAB Specimen Blood Performing Organization Address [facility] Corporationcoar Phone Number [facility] [address] [place] [address] * MAGNESIUM (02/17/2018 5:22 AM) Magnesium 1.6 1.6 - 2.6 mg/dL MAIN LAB Specimen Blood Performing Organization Address [facility] Corporation[facility] Phone Number [facility] [address] [place] [address] * BASIC METABOLIC PANEL (02/17/2018 5:22 AM) [...] for questions. Specimen Blood Performing Organization Address City/[facility]/Zipcode Phone Number MAIN LAB [address] [place] [address] * BASIC METABOLIC PANEL (02/16/2018 6:25 AM) [...] for questions. Specimen Blood Performing Organization Address City/[facility]/Zipcode Phone Number MAIN LAB [address] [place] [address] * CBC (02/16/2018 6:25 AM) White Blood [...] LAB MCHC 33.5 32.0 - 36.0 G/DL [facility] RDW 13.5 11 - 15 % [facility] Platelet Count 291 150 - 400 K/UL [facility] MPV 8.9 7 - 11 FL [facility] Specimen Blood Performing Organization Address City/State/Zipcode Phone Number [facility] [address] [place] [address] * SURGICAL PATHOLOGY (02/15/2018 2:52 PM) PATHOLOGY REPORT [facility] [email or web address] Department of Pathology and Laboratory Medicine [address] [place] [address] Surgical Pathology Office:[phone] :[phone] SURGICAL PATHOLOGY REPORT NAME: LONA ROLLINS SURG PATH #: [id number] MR #: [id number] SPECIMEN CLASS: [facility] BILLING #: [id number] ALT ID #:LOCATION: [facility] DATE OF PROCEDURE: 02/15/2018 AGE:67 SEX: F [...] of invasive carcinoma in the biopsy tissue. ([id number]). --------- LIP AND ORAL CAVITY: Excisional Biopsy, [...] at the time the report is issued. iTywY4Gg/a For All Carcinomas Primary Tumor (pT): pTis:Carcinoma [...] placed in cassette A1FS for permanent diagnosis. ([facility]) B. Received fresh, labeled with patient's name and "posterior mucosal margin" is a 3.1 x 0.5 x 0.4 cm white-boudreaux tissue fragment. The specimen is bisected and is submitted entirely for frozen consultation with the remnant placed in cassette B1FS for permanent diagnosis. ([facility]) C. Received fresh, labeled with patient's [...] Remainder of specimen from medial to lateral. ([facility]) E. Received fresh, labeled with the patient's name and "posterior mucosal margin #2" is a 3.3 x 0.5 x 0.3 white-boudreaux tissue fragment. The specimen is submitted entirely for frozen consultation with the remnant placed in cassette E1FS for permanent diagnosis. ([facility]) F. Received fresh labeled with the patient's name and "left level one neck dissection" is an 8 gram, 4.0 x 2.7 x 1.5 cm boudreaux-brown lobulated mandibular gland. The specimen is serially sectioned to reveal a boudreaux-brown cut surface without nodules or masses. No lymph nodes are grossly identified. Electrical/Instrument Technician sections of the submandibular gland are submitted in cassettes F1-F2. (md) G. Received fresh labeled with the patient's name and "level 1A neck dissection" is a 4.6 x 3.0 x 1.0 cm portion of yellow-boudreaux lobulated fibroadipose tissue. The specimen is serially sectioned to reveal two pink-boudreaux possible lymph nodes measuring 0.6 and 0.5 cm in greatest dimension. The specimen is submitted entirely as follows: G1Two bisected lymph nodes (one inked black). G2-M6Pryvailxa fibroadipose tissue. (md) H. Received fresh labeled with the patient's name and "reresection of posterior mucosal margin" is a specimen consisting of two fragments of pink-boudreaux mucosa measuring 1.8 x 0.8 x 0.6 cm and 1.8 x 1.0 x 0.5 cm. The specimen is submitted without sectioning in cassette H1. (md) I. Received fresh labeled with the patient's name and "left neck dissection" is a 12.2 x 2.9 x 0.6 cm portion of boudreaux-yellow lobulated fibroadipose tissue. The specimen is palpated to reveal multiple pink-boudreaux lymph nodes ranging from 0.2 cm to 1.8 cm in greatest dimension. The specimen is submitted entirely as follows: I1-O4Fpsujtzb whole lymph nodes in each cassette. I3One bisected lymph node. I4One fragments of possible lymph node. I5-R7Bomkwnhmc fibroadipose tissue. (md)J. Received fresh, labeled with the patient's name and "right level IB neck dissection" is a 5.2 x 3.5 x 1.7 cm white-boudreaux to pale yellow tissue fragment, which is grossly consistent with submandibular gland. The entire specimen is palpated to reveal no apparent lymph nodes. The specimen is serially sectioned to reveal a white-boudreaux to pale yellow lobulated cut surface. Electrical/Instrument Technician sections are submitted in cassettes J1 and J2. ([place] [facility]. Received fresh labeled with the patient's [...] of fibroadipose tissue and possible lymph nodes. ([facility]) jrt/02/15/2018 Intraoperative Consultation: A1FS, squamous mucosa, "anterior mucosal margin", biopsy: Negative for malignancy. B1FS, squamous mucosa, "posterior mucosal margin", biopsy: Squamous cell carcinoma in situ. C1FS, skeletal muscle, "deep mucosal margin", biopsy: Negative for malignancy. E1FS, Squamous mucosa, "posterior mucosal margin #2 for frozen", biopsy: Negative for high-grade dysplasia or malignancy.Frozen section performed at the [facility], [address] [place] [address]. Mónica Courtney MD Performing Organization Address City/State/Zipcode Phone Number [facility] RESULTS in this encounter Visit Diagnoses Diagnosis Oral cancer (HCC) Malignant neoplasm of mouth, unspecified site Admitting Diagnoses Diagnosis Oral cancer (HCC) - Oral cancer (HCC) [C06.9] Malignant neoplasm of mouth, unspecified site Cancer of oral cavity (HCC) Administered Medications Medication Order MAR Action Action Date Dose Rate Site acetaminophen (TYLENOL) oral solution Given 02/19/2018 650 mg 650 mg 09:12 CDT 650 mg, Feeding Tube, EVERY 4 HOURS PRN, Starting Odalys 02/18/18 at 1804, Until Thu02/19/18 at 1528, Pain non-opioid: may be used alone or in combination with opioid analgesia, TOTAL ACETAMINOPHEN DOSE NOT TO EXCEED 4GM DAILY Given 02/19/2018 650 mg 13:20 CDT albuterol 0.083% (PROVENTIL; VENTOLIN) nebulizer solution 2.5 mg 2.5 mg, Inhalation, RT EVERY 4 HOURS PRN, Starting 02/16/18 at 0619, Until Thu02/19/18 at 1528, RT PROTOCOL, When administered by RT, will be per RT policy. apixaban (ELIQUIS) tablet 5 mg Given 02/18/2018 [...] Feeding Tube, FOUR TIMES DAILY PRN, Starting Odalys 02/18/18 at 1805, Until Thu02/19/18 at 1528, Diarrhea, Note: Max 8 tabs/day (20 mg diphenoxylate) famotidine (PEPCID) tablet 20 mg Given 02/18/2018 20 mg 20 mg, Feeding Tube, TWICE DAILY, First 21:55 CDT dose on Odalys 02/18/18 at 2100, Until Discontinued Given 02/19/2018 20 mg 09:11 CDT lidocaine PF 1% /EPINEPHrine [id number] Given 02/15/2018 4 mL Neck syr (OR) 14:25 CDT 10 mL, INTRA-PROCEDURE MED, Starting Thu02/15/18 at 1425, Until Thu02/15/18 at 1827, Intra-op milk of magnesia (CONC) oral suspension 10 mL 10 mL, Feeding Tube, DAILY PRN, Starting Odalys 02/18/18 at 1805, Until Thu02/19/18 at 1528, Constipation [...] Feeding Tube, EVERY 4 HOURS PRN, Starting Odalys 02/18/18 at 1805, Until Thu02/19/18 at 1528, Pain PO, TOTAL ACETAMINOPHEN DOSE NOT TO EXCEED 4GM DAILY Given 02/19/2018 1 tablet 05:39 CDT pancrelipase 20,000 Units/ sodium bicarbonate 650 mg(#) ([facility] CLOG DESTROYER) for occluded feeding tube cap 1 capsule 1 capsule, Feeding Tube, NEEDED (QUALITY ASSURANCE PROJECT MANAGER FROM RX), Starting Odalys 02/18/18 at [...] 1 capsule 1 capsule, Feeding Tube, NEEDED (QUALITY ASSURANCE PROJECT MANAGER FROM RX), Starting Thu02/19/18 at 0642, [...] Until Discontinued senna/docusate (SENOKOT-S) tablet 1 Given 02/18/2018 1 tablet tablet 21:55 CDT 1 tablet, Per G Tube, TWICE DAILY, First dose on Thu02/18/18 at 2100, Until Discontinued, Hold for loose stools Given 02/19/2018 1 tablet 09:12 CDT sertraline (ZOLOFT) tablet 50 mg Given 02/19/2018 50 mg 50 mg, SEE ADMIN INSTRUCTIONS, DAILY, 09:11 CDT First dose on Thu02/19/18 at 0900, Until Discontinued, Per tube in this encounter
--- OUTSIDE RECORDS SUMMARY | 2018-03-18 19:59 | XMS REPORT | Encounter Summary ---
Author Author [facility] Organization [facility] Address Unknown Phone Unavailable Care Team Providers Care Cruise Coordinator Name Role Phone RubinaDarling hubbard Domenica DO Unavailable Unavailable Herman Castrejon PHARMD Unavailable Unavailable Didi Louie PRESERVATIONIST PCP Encounter Details Date Type Department Care Team Description 01/29/2018 Prep for Case [facility] Hesham Russo MD Oral cancer (HCC) Physicians - ENT [address] (Primary Dx) [facility] [place] [address] [place] [address] [phone] [place] [address] Social History Tobacco Use Types [...]
--- OUTSIDE RECORDS SUMMARY | 2018-03-18 19:59 | XMS REPORT | Encounter Summary ---
Author Author [facility] Organization [facility] Address Unknown Phone Unavailable Care Team Providers Care Gastroenterology Nurse Name Role Phone RubinaDarling hubbard Domenica DO Unavailable Unavailable Herman Castrejon PHARMD Unavailable Unavailable Didi Louie APRN PCP Reason for Visit * Reason Comments Surgery Encounter Details Date Type Department Care Team Description 02/09/2018 Telephone [facility] Hesham Russo MD Surgery Physicians - ENT [address] [facility] [place] [address] [place] [address] [phone] [place] [address] Social History Tobacco Use Types Packs/Day Years Used Date Former Smoker Cigarettes 2 20 Quit: 05/28/2015 Smokeless Tobacco: Never Used Alcohol Use Drinks/Week oz/Week Comments No used to have 10-12 beers/day;10 shots/week quit 2003 Sex Assigned at Date Recorded Not on file as of this encounter Miscellaneous Notes * Telephone Encounter - Mindy Cardenas LPN - 02/11/2018 10:27 AM CDT Request sent to [facility], confirmation received. * Telephone Encounter - Amada Tompkins - 02/09/2018 10:29 AM CDT Patient will need lodging at the [facility] for the ,, and possibly the 17 of February. Please call [phone]. in this encounter Plan of Treatment Not on fileas of this encounter Visit Diagnoses Not on filein this encounter
--- OUTSIDE RECORDS SUMMARY | 2018-03-18 19:59 | XMS REPORT | Encounter Summary ---
Author Author [facility] Organization [facility] Address Unknown Phone Unavailable Care Team Providers Care Rehabilitation Caseworker Name Role Phone RubinaDarling hubbard Domenica DO Unavailable Unavailable Herman CastrejonD Unavailable Unavailable Didi Louie RAILWAY HEAD TENDER PCP Reason for Visit * Auth/Cert Status Reason Specialty Diagnoses / Referred By Referred To Procedures Contact Contact Diagnoses Oral cancer (HCC) Oral cancer (HCC) [C06.9] P rocedures VT CERVICAL LYMPHADEC MODIFIED RADICAL NECK DSJ VT GLSSC COMPOSIT RESCJ FLR MNDBLR RESCJ & RAD NECK VT SPLIT AGRFT F/S/N/H/F/G/M/D GT 1ST 100 CM/</1 % CERVICAL LYMPHADENECTOMY COMPOSITE RESECTION WITH NECK DISSECTION Face STSG Encounter Details Date Type Department Care Team Description 02/15/2018 Anesthesia Preoperative Assessment Cuong Woods DO [facility] [address] [facility] [address] fl [address] [place] [address] [address] [facility] [phone] [place] [address] [phone] Anesthesia Record Procedure Name Responsible Anesthesia Start Time Anesthesia Stop Time Anesthesiologist CERVICAL LYMPHADENECTOMY Fernando Freed MD 02/15/18 1356 02/15/18 1649 (Bilateral Neck) Date Time Event Comment 1301 AN Equip Check 2018 1355 Out of Pre Procedure 1355 In Room 1356 Anes Start 1357 An Start Data 1409 An Induction The patient was reevaluated immediately before moderate or deep sedation use and before anesthesia induction. 1413 An Intubation 1420 Anesthesia Ready 1421 Antibiotic Given 1426 Quick Note IV infiltrated on side infusions were runnning. we had to start patient on Gas until propofol and Carl could be moved over to 2nd IV. 1432 Proc Start 1619 Quick Note bleeding from the mouth during wake up . Fentanly and gas turned on for surgeons to reinforce sutures 1640 An Extubation 1642 an stop data 1649 Handoff to RN I completed my SBAR handoff to the receiving nurse. 1649 An Stop Meds Name Total midazolam (VERSED) 1 mg/mL injection 2 mg fentaNYL PF (SUBLIMAZE) injection 200 mcg lidocaine (2%) 200 mg/10mL Injection 100 mg syringe propofol (DIPRIVAN) 200 mg/ 20 mL 200 mg injection (VIAL) ondansetron (ZOFRAN) injection 4 mg dexamethasone (DECADRON) 4 mg/mL 8 mg injection dextran 70/hypromellose (GENTEAL TEARS; 2 drop BION TEARS) ophthalmic solution propofol (DIPRIVAN) infusion 1,004.17 mg HYDROmorphone injection (DILAUDID) 2 2 mg mg/mL remifentanil (ULTIVA) 1 mg/3 mL 1,000 915.19 mcg mcg in sodium chloride 0.9% (NS) 20 mL Injection ampicillin/sulbactam (UNASYN) 3 g in 3 g sodium chloride 0.9% (NS) 100 mL IVPB (MB+) succinylcholine (ANECTINE) injection 100 mg (VIAL) lactated ringers infusion 1,000 mL electrolyte-A (PLASMA-LYTE A PH 7.4) 200 mL infusion * Name O2 N2O Inspired Sevoflurane Inspired Sevoflurane * No blood administrations on file. Type Details Placement Removal Wounds 02/15/18; 1651; Chin to Neck to Chest; 02/15/18 1651 by Anam, (NOT for Surgical Incision; BILATERAL NECK- CINTHIA Lai Pressure BACITRACIN OINTMENT Injuries) Peripheral 02/15/18; 1007; RN (CINTHIA Dumont); L; 02/15/18 1007 by Austin, 1750 by Dhara, IV Outer; Hand; 20 G; Lidocaine Prep; 1; CINTHIA Hussein RN Symptomatic (phlebitis, pain, leaking, infiltration); 02/18/18; 1750 ETT 02/15/18; 1416; Ventilated by mask (1); 02/15/18 1416 by Eliana, 12/28 1637 by Eliana, Direct laryngoscopy, Stylet; LOY Rivas CRNA Single-Lumen; Mac; 3; Oral; 1-Full view of the glottis; 1 insertion attempt; Auscultation, ETCO2 Detector; 22 centimeters; 02/15/18; 1637 [place] 02/15/18; 1545; Left, Outer; Neck; 19 02/15/18 1545 by Anam, 02/17/18 0700 by Marilu Arreaga; #1; 02/17/18; 0700; Other (Comment) CINTHIA Lai RN Drain [place] 02/15/18; 1549; Outer, Right; Neck; 19 02/15/18 1549 by Anam, 02/18/18 1500 by Marilu Jules; #2; 02/18/18; 1500; Per Provider CINTHIA Lai RN Drain in this encounter Social History Tobacco Use Types Packs/Day Years Used Date Former Smoker Cigarettes 2 20 Quit: 05/28/2015 Smokeless Tobacco: Never Used Alcohol Use Drinks/Week oz/Week Comments No used to have 10-12 beers/day;10 shots/week quit 2003 Sex Assigned at Date Recorded Not on file as of this encounter OR Notes * Anesthesia Postprocedure Evaluation - Alexa Dodge MD - 02/15/2018 5: 54 PM CDT Post-Anesthesia Evaluation Name: Lona Coburn : 1950 Age: 67 y.o. Sex: female Procedure Date: 02/15/2018 Procedure: Procedure(s) with comments: CERVICAL LYMPHADENECTOMY - CASE LENGTH 2 HOURS COMPOSITE RESECTION WITH NECK DISSECTION Surgeon: Surgeon(s): Hesham Russo MD Bhojwani, Amit, MD Le, Tran B, MD Lucas, Jacob C, MD Post-Anesthesia Vitals BP: 172/83 (02/15 1715) Pulse: 79 (02/15 1715) Respirations: 14 PER MINUTE (02/15 1715) SpO2: 100 % (02/15 1715) O2 Delivery: Simple Mask (02/15 1715) SpO2 Pulse: 79 (02/15 1715) Post Anesthesia Evaluation Note Evaluation location: pre/post Patient participation: recovered; patient participated in evaluation Level of consciousness: sleepy but conscious Pain score: 0 Pain management: adequate Hydration: normovolemia Temperature: 36.0C - 38.4C Airway patency: adequate Perioperative Events Perioperative events: no Post-op nausea and vomiting: no PONV Postoperative Status Cardiovascular status: hemodynamically stable Respiratory status: spontaneous ventilation Perioperative Events Perioperative Event: No Emergency Case Activation: No * Anesthesia Preprocedure Evaluation - Lobo Garcia MD - 01/29/2018 1:08 PM CDT Formatting of this note may be different from the original. Anesthesia Pre-Procedure Evaluation Name: Lona Coburn : 1950 Age: 67 y.o. Sex: female Procedure Date: 02/15/2018 Procedure: Procedure(s) with comments: CERVICAL LYMPHADENECTOMY - CASE LENGTH 2 HOURS COMPOSITE RESECTION WITH NECK DISSECTION SPLIT THICKNESS SKIN GRAFT FACE Physical Assessment Vital Signs (last filed in past 24 hours): BP: 144/72 (02/15 1005) Temp: 37.1 C (98.8 F) (02/15 1005) Pulse: 65 (02/15 1005) Respirations: 15 PER MINUTE (02/15 1005) SpO2: 93 % (02/15 1005) O2 Delivery: None (Room Air) (02/15 1005) Height: 160 cm (63") (02/15 1005) Weight: 85.9 kg (189 lb 6.4 oz) (02/15 1005) Patient History Allergies Allergen Reactions Levaquin [Levofloxacin] SEE COMMENTS C Diff Rocephin [Ceftriaxone] HEADACHE, NAUSEA ONLY and DIZZINESS Current Medications Medication Directions apixaban (ELIQUIS) 5 mg tablet Take 5 mg by mouth twice daily. aspirin EC 81 mg tablet Take 81 mg by mouth daily. Take with food. cetirizine (ZYRTEC) 10 mg tablet Take 10 mg by mouth every morning. Cholecalciferol (Vitamin D3) (VITAMIN D) 1,000 unit cap Take 1 capsule by mouth daily. etanercept (ENBREL) 50 mg/mL (0.98 mL) injection Inject 50 mg under the skin every 7 days. Lactobacillus acidophilus (PROBIOTIC PO) Take by mouth twice daily. magnesium oxide (MAG-OX) 400 mg tablet Take 1 tablet by mouth daily. montelukast (SINGULAIR) 10 mg tablet Take 10 mg by mouth at bedtime daily. oxyCODONE/acetaminophen (PERCOCET; ENDOCET; ROXICET) 5/325 mg [...] mouth at bedtime as needed for Sleep. 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 Ruiz 01/22/18) No angina PVD (s/p iliac artery stent, left foot amputation 2012) Hyperlipidemia No dyspnea on exertion ECHO 11/20/15: normal LV with EF of 60-65%, trivial MR and TR, mild diastolic dysfunction. 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 ), residual symptoms Psychiatric history Depression Musculoskeletal Arthritis Endocrine/Other Autoimmune disease (RA) Malignancy (Floor of mouth tumor) Physical Exam Airway Findings Mallampati: II TM distance: >3 FB Neck ROM: full Mouth opening: good Dental Findings: Upper dentures and lower dentures Cardiovascular Findings: Rhythm: regular Rate: normal Pulmonary Findings: Negative Neurological Findings: Negative Comments: Slowed speech Diagnostic Tests Hematology: Lab Results Component Value Date HGB 13.2 01/22/2018 HCT 39.7 01/22/2018 PLTCT 282 01/22/2018 WBC 12.5 01/22/2018 NEUT 46.5 01/07/2018 ANC 5.0 01/07/2018 ALC 4.4 01/07/2018 MCV 95.0 01/22/2018 MCH 31.5 01/22/2018 MCHC 33.1 01/22/2018 MPV 8.4 01/22/2018 RDW 14.1 01/22/2018 General Chemistry: Lab Results Component Value Date NA 139 01/22/2018 K 4.0 01/22/2018 CL 108 01/22/2018 CO2 25 01/22/2018 GAP 6 01/22/2018 BUN 12 01/22/2018 CR 0.84 01/22/2018 GLU 96 01/22/2018 GLU 97 01/07/2018 CA 8.7 01/22/2018 MG 1.7 01/22/2018 Coagulation: No results found for: PT, PTT, INR T&S ordered Anesthesia Plan ASA score: 3 Plan: general Induction method: intravenous NPO status: acceptable Informed Consent Anesthetic plan and risks discussed with patient. Plan discussed with: anesthesiologist and FLASK CARRIER. Addendum: Pt's dark room attendant assessed pt risk to be low to intermediate. in this encounter Plan of Treatment Not on fileas of this encounter Visit Diagnoses Not on filein this encounter Administered Medications Medication Order MAR Action Action Date Dose Rate Site ampicillin/sulbactam (UNASYN) 3 g in Given - New 02/15/2018 3 g sodium chloride 0.9% (NS) 100 mL IVPB Bag 14:47 CDT (MB+) 100 mL, Administer over 60 Minutes, INTRA-PROCEDURE MED(CONT), Starting Thu02/15/18 at 1447, Until Thu02/15/18 at 1649, Anesthesia Intra-op dexamethasone (DECADRON) injection Given 02/15/2018 8 mg Intravenous, INTRA-PROCEDURE MED, 14:30 CDT Starting Thu02/15/18 at 1430, Until Thu02/15/18 at 1649, Nausea/Vomiting Injectable, Anesthesia Intra-op dextran 70/hypromellose (GENTEAL TEARS; Given 02/15/2018 2 drops BION TEARS) ophthalmic solution 14:15 CDT INTRA-PROCEDURE MED, Starting Thu02/15/18 at 1415, Until Thu02/15/18 at 1649, Dry Eyes, Anesthesia Intra-op electrolyte-A (PLASMA-LYTE A PH 7.4) Given - New 02/15/2018 injection Bag 14:30 CDT INTRA-PROCEDURE MED(CONT), Starting Thu02/15/18 at 1430, Until Thu02/15/18 at 1649, Anesthesia Intra-op fentaNYL citrate PF (SUBLIMAZE) Given 02/15/2018 50 mcg injection 14:09 CDT INTRA-PROCEDURE MED, Starting Thu02/15/18 at 1358, Until Thu02/15/18 at 1649, Pain Injectable, Anesthesia Intra-op Given 02/15/2018 50 mcg 15:45 CDT Given 02/15/2018 50 mcg 16:16 CDT HYDROmorphone (DILAUDID) injection Given 02/15/2018 0.5 mg INTRA-PROCEDURE MED, Starting Thu02/15/18 15:20 CDT at 1502, Until Thu02/15/18 at 1649, Pain Injectable, Anesthesia Intra-op Given 02/15/2018 0.5 mg 15:37 CDT Given 02/15/2018 0.5 mg 15:47 CDT lactated ringers infusion Given - New 02/15/2018 1,000 mL 20 mL/hr 1,000 mL, 1,000 mL, Intravenous, at 20 Bag 10:19 CDT mL/hr, CONTINUOUS, Starting Thu02/15/18 at 0945, Until Thu02/15/18 at 1833, Pre-Op Given - New Bag 02/15/2018 13:55 CDT Given - New Bag 02/15/2018 14:59 CDT lidocaine (PF) injection Given 02/15/2018 100 mg INTRA-PROCEDURE MED, Starting Thu02/15/18 14:10 CDT at 1410, Until Thu02/15/18 at 1649, Anesthesia Intra-op midazolam (VERSED) injection Given 02/15/2018 2 mg Intravenous, INTRA-PROCEDURE MED, 13:53 CDT Starting Thu02/15/18 at 1353, Until Thu02/15/18 at 1649, Agitation Injectable, Anxiety Injectable, Anesthesia Intra-op ondansetron (ZOFRAN) injection Given 02/15/2018 4 mg Intravenous, INTRA-PROCEDURE MED, 16:24 CDT Starting Thu02/15/18 at 1624, Until Thu02/15/18 at 1649, Nausea/Vomiting Injectable, Anesthesia Intra-op propofol (DIPRIVAN) infusion Dose/Rate 02/15/2018 120 61.8 mL/hr 100 mL, INTRA-PROCEDURE MED(CONT), Change 14:55 CDT mcg/kg/min Starting Thu02/15/18 at 1418, Until Thu02/15/18 at 1649, Anesthesia Intra-op Dose/Rate Change 02/15/2018 150 77.3 mL/hr 15:08 CDT mcg/kg/min Dose/Rate Change 02/15/2018 80 41.2 mL/hr 15:45 CDT mcg/kg/min propofol (DIPRIVAN) injection Given 02/15/2018 200 mg INTRA-PROCEDURE MED, Starting Thu02/15/18 14:10 CDT at 1410, Until Thu02/15/18 at 1649, Anesthesia Intra-op remifentanil (ULTIVA) 1 mg/3 mL 1,000 Infusion 02/15/2018 0.2 20.6 mL/ hr mcg in sodium chloride 0.9% (NS) 20 mL Restarted 15:15 CDT mcg/kg/min Injection INTRA-PROCEDURE MED(CONT), Starting Thu02/15/18 at 1422, Until Thu02/15/18 at 1649, Anesthesia Intra-op Dose/Rate Change 02/15/2018 0.2 20.6 mL/hr 15:37 CDT mcg/kg/min Dose/Rate Change 02/15/2018 0.08 8.2 mL/hr 15:47 CDT mcg/kg/min succinylcholine (ANECTINE) injection Given 02/15/2018 100 mg INTRA-PROCEDURE MED, Starting Thu02/15/18 14:12 CDT at 1412, Until Thu02/15/18 at 1649, Anesthesia Intra-op in this encounter
--- OUTSIDE RECORDS SUMMARY | 2018-03-18 19:59 | XMS REPORT | Encounter Summary ---
Author Author [facility] Organization [facility] Address Unknown Phone Unavailable Care Team Providers Care Highballer Name Role Phone RubinaDarling Domenica DO Unavailable Unavailable Herman Castrejon PHARMD Unavailable Unavailable Didi Louie APRN PCP Encounter Details Date Type Department Care Team Description 01/29/2018 Hospital Clin[facility] Gopi Mott MD Malignant neoplasm of [facility] 1st fl [address] floor of mouth, [address] unspecified (HCC) [place] [address] [place] [address] [phone] Social History Tobacco Use Types Packs/Day Years Used Date Former Smoker Cigarettes 2 20 Quit: 05/28/2015 Smokeless Tobacco: Never Used Alcohol Use Drinks/Week oz/Week Comments No used to have 10-12 beers/day;10 shots/week quit 2003 Sex Assigned at Date Recorded Not on file as of this encounter Medications at Time of Discharge [...] bedtime as needed for feeding tube Sleep. lactobacillus rhamnosus Take 1 capsule by mouth 02/19/2018 (GG) (CULTURELLE) 10 twice daily with meals. billion cell cap oxyCODONE/acetaminophen Take 1 tablet by mouth 02/19/2018 (PERCOCET; ENDOCET; twice daily ROXICET) 5/325 mg tablet oxyCODONE/acetaminophen Take one tablet via 20 tablet 0 02/19/2018 02/22/2018 (PERCOCET; ENDOCET; feeding tube every 4 ROXICET) 5/325 mg hours as needed Earliest tabletIndications: per Fill Date: 02/19/18 Feeding tube pravastatin (PRAVACHOL) Take 10 mg by mouth at 02/19/2018 10 mg tablet bedtime daily. as of this encounter Plan of Treatment Not on fileas of this encounter Results * OUTSIDE PATHOLOGY CONSULT (01/29/2018 11:08 AM) PATHOLOGY REPORT [facility] [employer] [email or web address] Department of Pathology and Laboratory Medicine [address] [place] [address] Surgical Pathology Office:[phone] :[phone] PATHOLOGY CONSULTATION NAME: ALIYAH COBURN SURG PATH #: [id number] MR #: [id number] ALT ID #: LOCATION: [facility] DATE OF PROCEDURE: 01/29/2018 AGE:67 SEX: F DATE RECEIVED: 01/29/2018 : 1950TIME RECEIVED:11: PHYSICIAN: GOPI MOTT MD DATE OF REPORT: 02/08/2018 COPY TO:DATE OF PRINTIN02/08/2018 OUTSIDE INSTITUTION: [address] [place] [address] F: [phone] ############################## ############################## ############ Final Diagnosis: A. Outside case "[id number]" (Date collected: 01/02/18): 1. Squamous mucosa, "floor of mouth", biopsy: Invasive squamous cell carcinoma, moderately to poorly differentiated See comment. Comment: P16 immuno stain is performed on block A1 and is negative. Human papillomavirus (HPV) in situ hybridization studies for High Risk HPV (genotypes 16 and 18), using the Harper Love Adhesive HPV Type 16/18 Probe, are performed on [...] material indicated in this report. +++ +++ Davy Franco DO Resident slw/01/29/2018 ############################## ############################## ############ Material Received: A: Outside Slides x6 [id number] [facility] [address] 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 Gross Description: A. Received are six (6 USS) slides and a report labeled "[id number]". slw/01/29/2018 If immunohistochemical stains and/or in situ hybridization are cited in this report, the performance characteristics were determined by the Department of Pathology and Laboratory Medicine of the [facility] ([employer]) in compliance with CLIA'88 regulations.Some [...] of Pathology and Laboratory Medicine of the [facility].It has not been cleared or approved by the FDA.The FDA has determined that such clearance or approval is not necessary. 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
--- OUTSIDE RECORDS SUMMARY | 2018-03-18 19:59 | XMS REPORT | Encounter Summary ---
Author Author [facility] Organization [facility] Address Unknown Phone Unavailable Care Team Providers Care Skein Winding Operator Name Role Phone RubinaDarling Domenica DO Unavailable Unavailable Herman Castrejon PHARMD Unavailable Unavailable Didi Louie DOCUMENTATION WRITER PCP Encounter Details Date Type Department Care Team Description 01/29/2018 PAC Office Preoperative Assessment Hesham Russo MD [facility] [address] [facility] 1st nm [address] [place] [address] [place] [address] [phone] Anesthesia Record Procedure Name Responsible Anesthesia Start [...] the receiving nurse. 1649 An Stop Meds * No agents on file. * No blood administrations on file. Type [...] Auscultation, ETCO2 Detector; 22 centimeters; 02/15/18; 1637 [place] 02/15/18; 1545; Left, Outer; Neck; 19 02/15/18 1545 by Anam, 02/17/18 0700 by Marilu Arreaga FR; #1; 02/17/18; 0700; Other (Comment) CINTHIA Lai RN Drain [place] 02/15/18; 1549; Outer, Right; Neck; 19 02/15/18 1549 by Anam, 02/18/18 1500 by Marilu Jules FR; #2; 02/18/18; 1500; Per Provider CINTHIA Lai [...] Vital Sign Reading Time Taken Blood Pressure 149/75 01/29/2018 12:12 PM CDT Pulse 66 01/29/2018 12:12 PM CDT Temperature 36.5 C (97.7 F) 01/29/2018 12:12 PM CDT Respiratory Rate - - Oxygen Saturation 96% 01/29/2018 12:12 PM CDT Inhaled Oxygen - - Concentration Weight 87.1 kg (192 lb) 01/29/2018 12:12 PM CDT Height 157.5 cm (5' 2") 01/29/2018 12:12 PM CDT Body Mass Index 35.12 01/29/2018 12:12 PM CDT in this encounter Instructions * Pre-Anesthesia Patient Instructions - Sulma Kraus RN - 01/29/2018 12:53 PM CDT GENERAL INFORMATION Before you come to the hospital Make arrangements for a responsible adult to drive you home and stay with you for 24 hours following surgery. Bath/Shower Instructions Take a bath or shower using the special soap given to you in PAC. Use half the bottle the night before, and the other half the morning of your procedure. Use clean towels with each bath or shower. Put on clean clothes after bath or shower. Avoid using lotion and oils. If you are having surgery above the waist, wear a shirt that fastens up the front. Sleep on clean sheets if bath or shower is done the night before procedure. Leave money, credit cards, jewelry, and any other valuables at home. The [facility] is not responsible for the loss or breakage of personal items. Remove nail slovak, makeup and all jewelry (including piercings) before coming to the hospital. The morning of your procedure: brush your teeth and tongue do not smoke do not shave the area where you will have surgery What to bring to the hospital ID/ Insurance Card Thermal Technician card Official documents for legal guardianship Copy of your Living Will, Advanced Directives, and/or Durable Power of Valve Machine Operator Small bag with a few personal belongings Cases for glasses/hearing aids/contact lens (bring solutions for contacts) Dress in clean, loose, comfortable clothing Eating or drinking before surgery Do not eat or drink anything after 11:00 p.m. the day before your procedure ( including gum, mints, candy, or chewing tobacco) OR follow the specific instructions you were given by your Surgeon. You may have WATER ONLY up to 2 hours before arriving at the hospital. Other instructions: Other instructions Notify your surgeon if: you become ill with a cough, fever, sore throat, nausea, vomiting or flu- like symptoms you have any open wounds/sores that are red, painful, draining, or are new since you last saw the doctor you need to cancel your procedure You will receive a call with your surgery arrival time from between 2:30pm and 4:30pm the last business day before your procedure. If you do not receive a call, please call [phone] before 4:30pm or [phone] after 4:30pm. Notify us at [facility]: if you need to cancel your procedure if you are going to be late Arrival at the [facility] [address] [place] [address] ? Park in the P5 parking garage located at [address] [place] [address]. ? Conference Planning Manager parking is available in front of [facility] between the hours of 7:00 am and 4:00 pm Thursday through Thursday. ? If parking in the P5 garage, take the east elevators in the parking garage to the second level and walk to the entrance of the [facility]. ? Enter through the 1st floor main entrance and check in with Information Desk. ? If you are a woman between the ages of 10 and 55, and have not had a hysterectomy, you will be asked for a urine sample prior to surgery. Please do not urinate before arriving in the Surgery Waiting Room. Once there, check in and let the attendant know if you need to provide a sample. * Pre-Anesthesia Medication Instructions - Sonia Arriaga, ROSEANNED - 2017 12:43 PM CDT Formatting of this note may be different from the original. YOUR MEDICATIONS: apixaban (ELIQUIS) 5 mg tablet Take 5 [...] mouth at bedtime as needed for Sleep. YOUR MEDICATION INSTRUCTIONS FOR SURGERY: Before surgery Stop the following vitamins, herbals, and natural supplements 14 days before surgery: Vitamin C Stop the following medications 7 days before surgery: Anti-inflammatory medications such as ibuprofen (Advil, Motrin) and naproxen (Aleve) You may use acetaminophen (Tylenol) Please follow these instructions regarding your blood thinner medications: Aspirin and Eliquis - we will call you with instructions (Per Cady with Dr. Fong, the patient may hold Eliquis for 48 hours and aspirin for 72 hours prior to surgery. Short aspirin hold approved by Dr. Russo -RS) Please follow these instructions regarding your ENBREL: we will call you with instructions(Per Allison with Dr. Butler, the patient may hold Enbrel for 1 week before and 1 week after surgery -RS) Morning of surgery On the morning of surgery, do NOT take these medications: Remaining vitamins/supplements ? Probiotic ? Vitamin D ? Magnesium Ointments/creams/lotions On the morning of surgery, take ONLY these medications with a sip (1-2 ounces) of water: Ranitidine Sertraline Cetirizine (Allergy pill - Zyrtec) Use inhalers as usual If needed: ? percocet Other information Before surgery, please contact the clinic pharmacist with any medicine updates or questions. E-mail: [email or web address] Before going home from the hospital, please ask your doctor when you should re- start your medicines that were stopped before surgery. in this encounter Progress Notes * Sonia Arriaga, CECI - 01/29/2018 12:30 PM CDT PAC Pharmacist Medication Plan Note: Lona Coburn was seen in the PAC on 01/29/18. As part of the visit, an accurate medication list was obtained and the patient was given pre-op medication instructions for upcoming surgery on 02/15/18. Per Cady with Dr. Fong, the patient may hold Eliquis for 48 hours and aspirin for 72 hours prior to surgery. Short aspirin hold approved by Dr. Russo. Per Allison with Dr. Butler, the patient may hold Enbrel for 1 week before and 1 week after surgery. The plan above was communicated to the patient's daughter, Jaclyn, who verbalized understanding. Sonia Arriaga PHARMD in this encounter Plan of Treatment Not on fileas of this encounter Results * TYPE & SCREEN (NOT CROSSMATCH ELIGIBLE) (01/29/2018 2:03 PM) ABO/RH(D) A NEG MAIN LAB Antibody Screen NEG MAIN LAB Blood Component Type [facility] MAIN LAB Specimen Blood, venous - Blood Performing Organization Address City/State/Zipcode Phone Number MAIN LAB [address] [place] [address] in this encounter Visit Diagnoses Diagnosis Encounter for blood typing - Primary
--- OUTSIDE RECORDS SUMMARY | 2018-03-18 19:59 | XMS REPORT | Encounter Summary ---
Author Author [facility] Organization [facility] Address Unknown Phone Unavailable Care Team Providers Care Sheeting Puller Name Role Phone RubinaDarling Domenica DO Unavailable Unavailable Herman Castrejon PHARMD Unavailable Unavailable Didi Louie APRN PCP Encounter Details Date Type Department Care Team Description 01/29/2018 [facility] Sayra Leggett MD Encounter for blood Encounter [facility] [address]st fl [address] typing [address] [place] [address] [place] [address] [phone] Social History Tobacco Use Types Packs/Day Years [...] on filein this encounter Admitting Diagnoses Diagnosis Encounter for blood typing
--- OUTSIDE RECORDS SUMMARY | 2018-03-18 20:00 | XMS REPORT | Encounter Summary ---
Author Author [facility] Organization [facility] Address Unknown Phone Unavailable Care Team Providers Care Chief Controller Name Role Phone Darling Cespedes DO Unavailable Unavailable Herman Castrejon PHARMD Unavailable Unavailable Didi Louie APRN PCP Encounter Details Date Type Department Care Team Description 01/19/2018 Procedure Pass [facility] 2nd fl [address] [place] [address] Social History Tobacco Use Types Packs/Day Years [...]
--- OUTSIDE RECORDS SUMMARY | 2018-03-18 20:00 | XMS REPORT | Encounter Summary ---
Author Author [facility] Organization [facility] Address Unknown Phone Unavailable Care Team Providers Care Assistant Finance Director Name Role Phone RubinaDarling Domenica DO Unavailable Unavailable Herman CastrejonD Unavailable Unavailable Didi Louie APRN PCP Reason for Referral * Status Reason Specialty Diagnoses / Referred By Referred To Procedures Contact Contact New Request Diagnoses Pranav Ruiz, AVNRT (AV jovan MD re-entry [address] ([facility]) [address] [place] [address] rocedures Phone: REQUEST FOR [phone] CARDIOLOGY Fax: APPOINTMENT [phone] Reason for Visit * Auth/Cert Status Reason Specialty Diagnoses / Referred By Referred To Procedures Contact Contact Diagnoses SVT (supraventricula r tachycardia) ([facility]) UNKNOWN P rocedures IA EPHYS EVAL W/ABLATION SUPRAVENT ARRHYTHMIA INTRACARDIAC CATHETER ABLATION WITH COMPREHENSIVE ELECTROPHYSIOLOG IC EVALUATION - ATRIOVENTRICULAR JOVAN REENTRY TACHYCARDIA Encounter Details Date Type Department Care Team Description 01/21/2018 Hospital Cardiac Catheterization Pranav Ruiz MD AVNRT (AV jovan re-entry - Encounter Laboratory [address] tachycardia) ([facility]) 01/22/[address] [place] [address] [place] [address] [phone] Social History Tobacco Use Types Packs/Day Years Used Date Former Smoker Cigarettes Quit: 05/28/2013 Smokeless Tobacco: Never Used Alcohol Use Drinks/Week oz/Week Comments No Sex Assigned at Date Recorded Not on file as of this encounter Last Filed Vital Signs Vital Sign Reading Time Taken Blood Pressure 110/65 01/22/2018 9:40 AM CDT Pulse 65 01/22/2018 9:40 AM CDT Temperature 36.9 C (98.5 F) 01/22/2018 9:40 AM CDT Respiratory Rate - - Oxygen Saturation 97% 01/22/2018 9:40 AM CDT Inhaled Oxygen - - Concentration Weight 86.2 kg (190 lb) 01/21/2018 6:22 AM CDT Height 157.5 cm (5' 2") 01/21/2018 6:22 AM CDT Body Mass Index 34.75 01/21/2018 6:22 AM CDT in this encounter Discharge Summaries * Chayito Naidu APRN - 01/22/2018 9:08 AM CDT Formatting of this note may be different from the original. 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 SOB (shortness of breath) Allergies: Levaquin [levofloxacin] and Rocephin [ceftriaxone] Admission Lab/Radiology studies notable for: Hematology: Lab Results Component Value Date HGB 14.60 01/07/2018 HCT 43.90 01/07/2018 PLTCT 324 01/07/2018 WBC 10.6 01/07/2018 NEUT 46.5 01/07/2018 ANC 5.0 01/07/2018 ALC 4.4 01/07/2018 MCV 95 01/07/2018 MCHC 33 01/07/2018 RDW 13.8 01/07/2018 , Coagulation: No results found for: PT, PTT, INR, General Chemistry: Lab Results Component Value Date NA 140 01/07/2018 K 4.6 01/07/2018 CL 102 01/07/2018 BUN 17 01/07/2018 CR 1.07 01/07/2018 GLU 97 01/07/2018 CA 9.50 01/07/2018 MG 1.6 01/07/2018 , Enzymes: No results found for: AST, ALT, ALKPHOS and HgbA1C: No results found for: HGBA1C Brief Hospital Course: Lona Coburn, 67 y.o. female w/ past medical history of paroxysmal SVT, severe carotid artery disesae (side unknown) prior CVA (2015 w/ moderate residual expressive aphasia with right residual weakness, anticoagulation, non-obstructive CAD, moderate to severe chronic dyspnea on exertion, chronic bronchitis, COPD, T2DM, PAD s/p right superficial femoral, popliteal and anteriotibial, prior tobacco abuse, h/o DVT s/p hip athroplasty with total hip replacement. She reports tachypalpitations about once per month, which lasts for a "long time " with sudden onset and questionable termination. She has not felt her heart racing since she presented to the Emergency Room in November. She had previously been on Verapamil for palpitations and SVT in the past. During her November 2017 visit to the ED, the tachycardia terminated with a diltiazem bolus and her Verapamil was switched to Diltiazem. She had also been initiated on Eliquis for protection for questionable AFL and h/o stroke. She presented 01/21/18 to undergo EP study with Dr. Ruiz. 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 Post procedure her Eliquis and Diltiazem were discontinued. Continue aspirin 81mg. Post procedure recovery was uneventful. Magnesium Oxide 400mg daily added to medication regimen. She is stable for discharge. She is asked to follow up with Dr. Fong in one month at which time implantation of LINQ device can be discussed. She currently has f/u scheduled with Alisson Bueno APRN in early March. Upon discharge the patient and family were given post procedure instructions/ restrictions as well as written instructions (see Discharge instructions). Condition at Discharge: Stable Access site(s) C/D/I without hematoma or bruit. Labs as above. VSS: BP 90/44 | Pulse 50 | Temp 36.4 C (97.5 F) | Ht 1.575 m (5' 2") | Wt 86.2 kg (190 lb) | SpO2 97% | BMI 34.75 kg/m Telemetry reveals normal sinus rhythm, single 2.10 second pause noted. Discharge Diagnoses: Hospital Problems Active Problems * (Principal)AVNRT (AV jovan re-entry tachycardia) ([facility]) PSVT (paroxysmal supraventricular tachycardia) (HCC) Surgical Procedures: None Significant Diagnostic Studies and Procedures: 01/21/18 EP study and successful slow pathway ablation for typical AVNRT by Dr. Ruiz Consults: None Patient Disposition: Home Patient instructions/medications: Procedure Specific Activity *Resume your normal activity in 3 days *You may drive after 2 days. *You may shower after discharge. *NO tub baths, hot tubs, or swimming for 1 week. *NO lifting greater than 10 pounds for 1 week. *NO sexual activity or strenuous activity for 1 week. Report These Signs and Symptoms Please contact your doctor if you have any of the following symptoms: Chest pain , shortness of breath, lightheadedness, dizziness, near fainting, palpitations, abd pain, back pain, or bleeding. Questions About Your Stay For questions or concerns regarding your hospital stay: - DURING BUSINESS HOURS (8:00 AM - 4:30 PM): Call [phone] and asked to be transferred to your discharge attending physician. - AFTER BUSINESS HOURS (4:30 PM - 8:00 AM, on weekends, or holidays): Call [phone] and ask the level glass forming machine operator to page the on-call doctor for the discharge attending physician. Discharging attending physician: PRANAV RUIZ [[id number]] Cardiac Diet Limiting unhealthy fats and cholesterol is the most important step you can take in reducing your risk for cardiovascular disease. Unhealthy fats include saturated and trans fats. Monitor your sodium and cholesterol intake. Restrict your sodium to 2g (grams) or 2000mg (milligrams) daily, and your cholesterol to 200mg daily. If you have questions regarding your diet at home, you may contact a dietitian at . Diabetic Diet You should eat between 1600 and 2000 calories per day. This is equal to 60g ( grams) of carbohydrates per meal, and 30g of carbohydrates for a bedtime snack. If you have questions about your diet after you go home, you can call a dietitian at [phone]. Incision Care *Call if there is an increase in pain, swelling, or redness. *DO NOT soak incision in water. *NO tub baths, hot tubs, or swimming. *You may shower after discharge. Return Appointment Please schedule f/u with Dr. Fong in [address] Fong Return Appointment Please call [facility] Cardiology Central Scheduling Thursday through Thursday, between 8 a.m. to 5 p.m. to make your appointment at for 3 months @ the Cardiology Clinic. Provider PRANAV RUIZ [[id number]] REQUEST FOR CARDIOLOGY APPOINTMENT Standing Status: Future Standing Exp. Date: 01/21/19 Scheduling Priority: Routine 3 months per MPE request Schedule OV with (1st choice Provider) Pranav Ruiz M.D. Special Visit Type Electrophysiology Location of Appointment [facility] / Thu-Thu or [place] Current Discharge Medication List START taking these medications Details magnesium oxide (MAG-OX) 400 mg tablet Take 1 tablet by mouth daily. Qty: 180 tablet, Refills: 3 PRESCRIPTION TYPE: Normal Associated Diagnoses: AVNRT (AV jovan re-entry tachycardia) ([facility]); Palpitations CONTINUE these medications which have NOT CHANGED Details ASCORBATE CALCIUM (VITAMIN C PO) Take 500 mg by mouth daily. PRESCRIPTION TYPE: Historical Med aspirin EC 81 mg tablet Take 81 mg by mouth daily. Take with food. PRESCRIPTION TYPE: Historical Med Cholecalciferol (Vitamin D3) (VITAMIN D) 1,000 unit cap Take 1 capsule by mouth daily. PRESCRIPTION TYPE: Historical Med etanercept (ENBREL) 50 mg/mL (0.98 mL) injection Inject 50 mg under the skin every 7 days. PRESCRIPTION TYPE: Historical Med ibuprofen (MOTRIN) 800 mg tablet Take 800 mg by mouth every 6 hours as needed. PRESCRIPTION TYPE: Historical Med Lactobacillus acidophilus (PROBIOTIC PO) Take by mouth twice daily. PRESCRIPTION TYPE: Historical Med montelukast (SINGULAIR) 10 mg tablet Take 10 mg by mouth at bedtime daily. PRESCRIPTION TYPE: Historical Med multivit-minerals/folic acid (ADULT MULTIVITAMIN GUMMIES PO) Take 2 Gummy by mouth daily. PRESCRIPTION TYPE: Historical Med oxyCODONE/acetaminophen (PERCOCET; ENDOCET; ROXICET) 5/325 mg tablet Take 1 tablet by mouth twice daily PRESCRIPTION TYPE: Historical Med pravastatin (PRAVACHOL) 10 mg tablet Take 10 [...] your prior med list in our system apixaban (ELIQUIS) 5 mg tablet diltiazem CD (CARDIZEM CD) 240 mg capsule Scheduled appointments: Jan 29, 2018 8:30 AM CDT PET SCAN [facility]OR[facility] with [facility] Radiology (Radiology) [address] [facility] 2nd Floor [facility] [address] Jan 29, 2018 9:[address] NECK/CHEST (SCHED ONLY) with PET/CT-HOSPITAL [facility] Radiology (Radiology) [address] [facility] 2nd [facility] [address] Jan 29, 2018 10:45 AM CDT New Patient with Hesham Russo MD [facility] ([facility]) 3rd Floor Pod C [address] [facility] Med Office [facility] [id number] Jan 29, 2018 12:30 PM CDT PAC Office Visit with PAC ROOM 4 Preoperative Assessment Clinic (--) [address] [facility] [address] Mar 19, 2018 1:30 PM CDT Return Patient with Alisson Bueno APRN-STOPPER GRINDER [facility] ([facility]) [address] [facility] [address] Pending items needing follow up: as above Signed: Chayito Naidu APRN 01/21/2018 cc: Primary Care Physician: Didi Louie Verified Referring physicians: Didi Louie APRN Additional provider(s): Augie Fong MD in this encounter Medications at Time of Discharge Medication Sig. Disp. Refills Start Date End Date aspirin EC 81 mg Take 81 mg by mouth tabletIndications: Per daily. Take with food. feeding tube Cholecalciferol (Vitamin Take 1 capsule [...] mg tabletIndications: bedtime daily. per feeding tube ranitidine(+) (ZANTAC) Take 150 mg [...] bedtime as needed for feeding tube Sleep. ASCORBATE CALCIUM Take 500 mg by mouth 01/29/2018 (VITAMIN C PO) daily. ibuprofen (MOTRIN) 800 mg Take 800 mg by mouth 01/29/2018 tablet every 6 hours as needed. multivit-minerals/folic Take 2 Gummy by mouth 01/29/2018 acid (ADULT MULTIVITAMIN daily. GUMMIES PO) oxyCODONE/acetaminophen Take 1 tablet by mouth 02/19/2018 (PERCOCET; ENDOCET; twice daily ROXICET) 5/325 mg tablet pravastatin (PRAVACHOL) Take 10 mg by mouth at 02/19/2018 10 mg tablet bedtime daily. as of this encounter Progress Notes * Francisca Chamberlain, RT - 01/22/2018 6:42 AM CDT Formatting of this note may be different from the original. RESPIRATORY THERAPY ADULT PROTOCOL EVALUATION RESPIRATORY PROTOCOL PLAN Medications Albuterol: MDI PRN Tiotropium: MDI Q Day Note: If indicated by protocol, medication orders will be placed by therapist. Procedures Oxygen/Humidity: O2 to keep SpO2 > 92% Monitoring: Pulse oximetry BID & PRN Comment: Symbicort PATIENT EVALUATION RESULTS Chart Review * Pulmonary Hx: Hx pulmonary disease, hx reactive or obstructive airway disease (PEFR & AM) OR regular home use of bronchodilators (AM) OR inhaled or systemic steroid use for lungs < or equal to 4 times/yr (AM) * Surgical Hx: No surgery OR last surgery > 6 weeks ago OR trach/stoma (BA) * Chest X-Ray: Clear OR not available (X-ray U/A) * PFT/Oxygenation: FEV1, PEFR < 70% OR Pa02 < 70 RA OR Sp02 <92% RA OR Fi02 > 0.21 to keep Sp02 > 92% OR < 24 hours post-op (02 & oxim) OR chronic C02 retention (C02) Patient Assessment * Respiratory Pattern: Regular pattern and rate OR good chest excursion with deep breathing * Breath Sounds: Clear and able to auscultate bases posteriorly * Cough / Sputum: Strong, effective cough OR nonproductive * Mental Status: Alert, oriented, cooperative * Activity Level: Ambulatory with assistance Priority Index Total Points: 6 Points * Priority Index: 1+ PRIORITY INDEX GUIDELINES* Priority Points 1 0-9 points 2 9-18 points 3 > 18 points + Pulm Dx or Home Rx *Higher points indicate higher acuity. Therapist: Francisca Chamberlain RT Date: 01/22/2018 [place] AC=Airway clearance AM=Aerosolized medication BA=Delmita aerosol DB&C=Deep breathe & cough FEV1=Forced expiratory volume in first second) IC=Inspiratory capacity LE=Lung expansion MDI=Metered dose inhaler Neb=Nebulizer O2=Oxygen Oxim=Oximetry PEFR=Peak expiratory flow rate HEALTHCARE ARCHITECT=Rapid Response Team * Pranav Ruiz MD - 01/21/2018 10:05 AM CDT Cardiac Electrophysiology Brief Post-Procedure Note Attending Front Office Attendant: Pranav Ruiz MD Fellow: NONE Preoperative diagnosis: SVT Postoperative diagnosis: Same Procedure(s) Performed: EP study and slow pathway ablation for typical AVNRT Procedure Description: Successful At baseline patient had relative hypotension prior to the procedure. At times her SBP was in the 70-80 mmHg range. Again it was before the procedure was initiated but with a little sedation. She received 2 boluses of IV normal saline and her blood pressure recovered completely into the 110 mmHg range. No further issues arise. I am we did keep her awake for part of the procedure when utilizing Isuprel up to 5 mcg/min to try and induce SVT. Difficult to induce SVT at baseline as patient took diltiazem this morning but clear evidence of dual AV jovan physiology. Also 2 consecutive echo beats and on Isuprel 5 mcg/min nonsustained Typical AVNRT. No evidence of accessory pathway. No inducible atrial tachycardia or atrial flutter. RF applied to the slow pathway region resulting in elimination of slow pathway function. Post Isuprel 5 mcg/min showed no evidence of dual AV jovan physiology. Patient tolerated procedure well. Anesthesia: Moderate sedation via RN Estimated blood loss: 10 mL Complications: None Specimens removed: None Sheaths: 3 6 Dominican sheaths on the left through which the HRA catheter was positioned of the high lateral RA, his catheter was positioned to the AV junction, and the RV catheter was positioned in the RV apex. A 7 Dominican sheath on the right for RF ablation and map catheter in the CS catheter via a 6 Dominican sheath on the right. Recommendations: - Please refer to post-procedure note for full recommendations -Pain control as needed -Stop Diltiazem today. -Stop Eliquis -Discussed Linq implantation with Dr. Fong as outpatient -Follow-Up with Primary Bull Driver in Dr. Fong in 1 month and with mo, Dr. Ruiz--as needed or per Dr. Fong's recommendations. * Lucero Mendes, RN - 01/21/2018 6:11 AM CDT Patient arrived on unit via wheelchair accompanied by RN. Patient transferred to the bed without assistance. Frailty score equals 5 Assessment completed, refer to flowsheet for details. Orders released, reviewed, and implemented as appropriate. Oriented to surroundings, call light within reach. Plan of care reviewed. Will continue to monitor and assess. in this encounter H&P Notes * Machelle Awan APRN - 01/16/2018 1:27 PM CDT Formatting of this note may be different from the original. Patient presents for procedure. Please see most recent H/P from 01/07/18 below. Machelle VegajuliaseanTRISHA Pager [phone] Office Visit Open 01/07/2018 [facility] Cardiology Pranav Ruiz MD Cardiology New Patient , Tachycardia; Referred by Augie Fong MD Reason for Visit Progress Notes Pranav Ruiz MD (Physician) Cardiology 01/07/18 1015 Unsigned Date of Service: 01/07/2018 Lona Coburn is a 67 y.o. female. HPI I had the pleasure of seeing your patient Lona Coburn in the [facility] as a part of the [facility] [place] office today for initial Electrophysiolgy Consultation regarding her SVT. She is typically followed and was referred by my partner Dr. Fong, her primary small arms artillery repairer. Ms. Coburn is an exceptionally pleasant 67 y.o. female, who is accompanied by her equally pleasant daughter, Ratna. All data in this note, including the past medical history, was newly collected today. Her PMHx briefly includes: Paroxysmal SVT; Normal LV Function By Remote Echo; Reported Severe Carotid Artery Disease (which side is unknown); Prior CVA () with moderate residual expressive aphasia with right residual weakness; Anticoagulation; Cardiac [id number] by Dr. Fong --> Nonobstructive Disease-through Dr. Fong's Office; Moderate to Severe Chronic STANTON; Chronic Bronchitis; COPD; Type 2 diabetes; PAD-Right Superficial Femoral, Popliteal and anteriotibial; Prior Tobacco Abuse; History of DVT: Status Post Hip Arthroplasty with Total Hip Replacement She has a [id number] score of 5: Female; Age; DM-2; Prior CVA NOTE: She had been on Verapamil for palpitations and SVT in the past. When she presented to the ED for tachycardia on 12/02/17, the tachycardia terminated with a Diltiazem bolus and Verapamil was switched to Diltiazem. For questionable AFL and given her history of stroke, she was initiated on Eliquis for precaution. She STATES she feels tachypalpitations about once per month, which lasts for a "long time" with sudden onset and questionable termination. She states she has not felt her heart racing since she presented to the Emergency Room in November. She presents in a wheelchair and informed me she had a stroke on 01/03/15. She states she was initiated on Eliquis upon discharge from the Emergency Department in November. If we do not find any reentrant arrhythmias, we would prusue CTI for potential AFL ocean transportation intermediary, regarding anticoagulation, I would possibly recommend 5 Minutes Reveal LinQ Implantable Looping Monitor instead of continued anticoagulation. She denies any bleeding issues-blood in the urine, blood in the stool, tolerating anticoagulation without obvious issue. She denies any chest discomfort, shortness of breath, lightheadedness, dizziness , near syncope or syncope, PND or orthopnea. FHx, SHx and ROS documented and I have reviewed, with some pertinent features to include: No FHx of premature CAD. She is a Former Smoker (20 cigarettes per day for 45 years). Most pertinent ROS is included/discussed throughout the note , e.g. HPI and A/P. ASSESSMENT AND PLAN: -- Supraventricular Tachycardia (SVT) -- Reported Severe Carotid Artery Disease (which side is unknown) -- Prior CVA (01/03/15) with moderate residual expressive aphasia with right residual weakness -- Anticoagulation -- Normal LV Function By Remote Echo -- Cardiac [id number] by Dr. Fong --> Nonobstructive Disease- through Dr. Fong's Office -- Moderate to Severe Chronic STANTON -- Chronic Bronchitis -- COPD -- Type 2 Diabetes -- PAD-Right Superficial Femoral, Popliteal and anteriotibial -- Prior Tobacco Abuse -- History of DVT -- Status Post Hip Arthroplasty with Total Hip Replacement I anticipate that she either has AV node Reentrant Tachycardia (AVNRT) less likely a Concealed Bypass Tract Mediated Tachycardia. Although I cannot definitively rule out an Atrial Tachycardia. It appears, on ECG that she has a short R-P Tachycardia. Regarding ?AFL, We had a lengthy discussion regarding SVT, the pathophysiology of SVT, the different types of SVT, the mechanisms, and therapeutic options. She has no evidence of preexcitation and therefore I reassured her that she does not have WPW and therefore her SVT is not life-threatening. We also discussed the therapeutic options for SVT to include: AV jovan suppressing agents, membrane stabilizing antiarrhythmic drug therapy,or pursuing EPS RFA. Re: RFA, We discussed if this is a Left Sided Pathway or Atrial Tachycardia that a Transeptal Puncture may be required. We discussed the procedure itself along with its associated risks, rationale, options, and benefits in detail with Lona Coburn and family. We discussed the risks to include, but not be limited to: , ME, stroke, cardiac perforation , complete heart block which could result in the need for a permanent pacemaker , bleeding, swelling, hematoma, infection, DVT, or vascular injury. She, the patient expressed an understanding of the procedure and risks, and wishes to proceed. She was instructed to hold any AVN suppressing or Antiarrhythmic drug Tx for 72 hours prior to the procedure. PLAN: -- We will proceed with SVT RFA as noted above -- She will hold her AVN suppressing agents 3 days prior to the procedure -- Pending the result of the EP study, we may consider [employer] Reveal LinQ Implantable Looping Monitor instead of continued anticoagulation -- Since she is on anticoagulation, I have asked her to monitor for any signs or symptoms of bleeding, including blood in the stool or urine, etc and to contact her PMD if any occurs. Ms. Coburn was educated regarding plan of care. She was instructed to call our office with any questions or concerns, as well as to notify us of any new or worsening symptoms. She verbalized understanding. I appreciate the opportunity to participate in the care of your patient. Please do not hesitate to contact me directly if you have any questions or further insights into her care. I have scheduled her follow-up with me in 3 month(s). Vitals: 01/07/18 1050 Weight: 86.6 kg (191 lb) Height: 1.575 m (5' 2") Body mass index is 34.93 kg/m. Past Medical History Patient Active Problem List Diagnosis Date Noted PSVT (paroxysmal supraventricular tachycardia) ([facility]) 01/07/2018 ECHO 11/20/15: normal LV with EF of 60-65%, trivial MR and TR, mild diastolic dysfunction. 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 Allergies Allergen Reactions Levaquin [Levofloxacin] SEE COMMENTS C Diff Rocephin [Ceftriaxone] HEADACHE, NAUSEA ONLY and SEE COMMENTS bradycardia Family History Problem Relation Age of Onset Heart Attack Mother Gout Sister Gout Brother Past Surgical History: Procedure Laterality Date ARTERIAL BYPASS SURGRY HIP REPLACEMENT HX APPENDECTOMY TUBAL LIGATION Social History Social History Marital status: Spouse name: N/A Number of children: N/A Years of education: N/A Social History Main Topics Smoking status: Former Smoker Types: Cigarettes Quit date: 05/28/2013 Smokeless tobacco: Never Used Alcohol use No Drug use: No Sexual activity: Not on file Other Topics Concern Not on file Social History Narrative No narrative on file Review of Systems Constitution: Positive for weakness. HENT: Negative. Eyes: Negative. Cardiovascular: Positive for claudication and irregular heartbeat. Respiratory: Positive for shortness of breath. Endocrine: Positive for heat intolerance. Hematologic/Lymphatic: Bruises/bleeds easily. Skin: Negative. Musculoskeletal: Positive for arthritis, joint pain, muscle weakness, neck pain and stiffness. Gastrointestinal: Negative. Genitourinary: Negative. Psychiatric/Behavioral: Negative. Allergic/Immunologic: Negative. Physical Exam Constitutional: She is in no acute distress, resting comfortably. She presents in a wheelchair. Exam consistent with moderate expressive aphasia and right sided weakness from prior CVA. Skin/Integument: Warm and dry Eyes: PERRL, sclera are non-icteric and no xanthelasmas noted ENT : Hearing is intact, Oropharynx is clear and moist. Heme/Lym/Immun: Supple neck, without thyromegaly Respiratory-Pulmonary/Chest: Effort normal and breath sounds normal. No respiratory distress or accessory muscle use. No obvious tracheal deviation. Scant bibasilar inspiratory crackles, likely related to atelectasis which clears with dep breathing. Cardiovascular: No evidence of increased jugular venous pressure, carotids are 2+/4+ equal bilaterally, left carotid bruit. Regular rhythm, S1, S2. 2/6 systolic murmur noted at the RUSB. No heaves, thrills or rubs. GI: obese, + Bowel sounds, soft and non-tender Musc/Skeletal-Extremities: without significant peripheral edema and with what appears to be full ROM Neuro: Patient is alert and oriented to person, place, and time. RUE strength 4 -5+, LUE strength 5+. Psych: Patient does not appear anxious, she appears appropriate, with normal non-pressured speech and what appears to be appropriate judgement Cardiovascular Studies Sinus bradycardia 57 bpm. No evidence of preexcitation. Problems Addressed Today No diagnosis found. Current Medications (including today's revisions) apixaban (ELIQUIS) 5 mg tablet Take 5 mg by mouth twice daily. ASCORBATE CALCIUM (VITAMIN C PO) Take 500 mg by mouth daily. aspirin EC 81 mg tablet Take 81 mg by mouth daily. Take with food. Cholecalciferol (Vitamin D3) (VITAMIN D) 1,000 unit cap Take by mouth. clopiDOGrel (PLAVIX) 75 mg tablet Take 75 mg by mouth daily. diltiazem CD (CARDIZEM CD) 240 mg capsule Take 240 mg by mouth daily. etanercept (ENBREL) 50 mg/mL (0.98 mL) injection Inject 50 mg under the skin every 7 days. gabapentin (NEURONTIN) 300 mg capsule Take 300 mg by mouth every 8 hours. HYDROcodone-acetaminophen(+) (VICODIN) 10-325 mg tablet Take 1 Tab by mouth every 6 hours as needed. ibuprofen (MOTRIN) 800 mg tablet Take 800 mg by mouth every 6 hours as needed. Lactobacillus acidophilus (PROBIOTIC PO) Take by mouth twice daily. medical supply, miscellaneous (OXYGEN TUBING MISC) Use 2 L as directed. montelukast (SINGULAIR) 10 mg tablet Take 10 mg by mouth at bedtime daily. multivitamin (MULTIPLE VITAMINS PO) Take by mouth. oxyCODONE/acetaminophen (PERCOCET; ENDOCET; ROXICET) 5/325 mg tablet Take 1 tablet by mouth twice daily as needed for Pain pravastatin (PRAVACHOL) 10 mg tablet Take 10 mg by mouth at bedtime daily. PV W-O MANUEL/FERROUS FUMARATE/FA (M-VIT PO) Take 1 Tab by mouth daily. ranitidine(+) (ZANTAC) 150 mg tablet Take 150 mg by mouth twice daily. sertraline (ZOLOFT) 50 mg tablet Take 50 mg by mouth daily. traZODone (DESYREL) 50 mg tablet Take 50 mg by mouth at bedtime as needed for Sleep. varenicline (CHANTIX) 1 mg tablet Take 0.5 mg by mouth twice daily. warfarin (COUMADIN) 3 mg tablet Take 3 mg by mouth daily. in this encounter Plan of Treatment Not on fileas of this encounter Procedures Procedure Name Priority Date/Time Associated Diagnosis Comments ECG-SCAN 01/31/2018 Results for this 8:25 AM CDT procedure are in the results section. ECG-SCAN 01/26/2018 Results for this 7:35 AM CDT procedure are in the results section. CONSULT IV THERAPY TEAM Routine 01/21/2018 8:28 PM CDT in this encounter Results * ECG-SCAN (01/31/2018 8:25 AM) Narrative Performed At Ordered by an unspecified provider. * ECG-SCAN (01/26/2018 7:35 AM) Narrative Performed At Ordered by an unspecified provider. * MAGNESIUM (01/22/2018 3:00 AM) Magnesium 1.7 1.6 - 2.6 mg/dL [facility] Performing Organization Address City/State/Zipcode Phone Number [facility] [address] [place] [address] * BASIC METABOLIC PANEL (01/22/2018 3:00 AM) Sodium 139 137 - 147 MMOL/L [facility] Potassium 4.0 3.5 - 5.1 MMOL/L [facility] Chloride 108 98 - 110 MMOL/L [facility] CO2 25 21 - 30 MMOL/L [facility] Anion Gap 6 3 - 12 [facility] Glucose 96 70 - 100 MG/DL [facility] Blood Urea Nitrogen 12 7 - 25 MG/DL [facility] Creatinine 0.84 0.4 - 1.00 MG/DL [facility] Calcium 8.7 8.5 - 10.6 MG/DL [facility] [...] for questions. Specimen Blood Performing Organization Address City/[facility]/Zipcode Phone Number [facility] [address] [place] [address] * CBC (01/22/2018 3:00 AM) White Blood Cells 12.5 (H) 4.5 - 11.0 K/UL [facility] RBC 4.18 4.0 - 5.0 M/UL [facility] Hemoglobin 13.2 12.0 - 15.0 GM/DL [facility] Hematocrit 39.7 36 - 45 % [facility] MCV 95.0 80 - 100 FL [facility] MCH 31.5 26 - 34 PG [facility] MCHC 33.1 32.0 - 36.0 G/DL [facility] RDW 14.1 11 - 15 % MAIN LAB Platelet Count 282 150 - 400 K/UL [facility] MPV 8.4 7 - 11 FL [facility] Specimen Blood Performing Organization Address City/[facility]/Zipcode Phone Number [facility] [address] [phone] * EP STUDY (01/21/2018 10:15 AM) Impressions [...] Dr. Fong as outpatient -Follow-Up with Primary Bull Driver in Dr. Fong in 1 month and with me, Dr. Ruiz--as needed or per Dr. Fong's recommendations. Narrative Performed At OTHER OUTSIDE LAB PROCEDURE: AV Node Modification-AVNRT RFA --Comprehensive EP study with coronary sinus catheter placement. --Acute drug testing Isuprel --Three-dimensional electroanatomic mapping using Ensite NavX. --Moderate sedation. 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 CHICKEN FANCIER:Pranav Ruiz M.D. FLUMER: NONE DATE:01/21/2018 INDICATION FOR PROCEDURE:Recurrent SVT BRIEF [...] catheter placed via access with a 6 Dominican sheath in the left femoral vein and advanced to the right ventricular apex. 2.EP His-curve quadrapolar catheter placed via access with a 6 Dominican sheath in the left femoral vein and advanced to the His position. 3.EP Melanie-curve quadrapolar catheter placed via access with a 6 Dominican sheath in the left femoral vein and advanced to the high right atrium. 4.EP decapolar deflectable catheter placed via access with a 6 Dominican sheath in the right femoral vein and advanced to the coronary sinus. 5.4.0 mm [id number] EPTmapping/ablation catheter placed via access with a 7 Dominican sheath in the right femoral vein and advanced to the right atrium to be used for mapping and ablation. DETAILS OF PROCEDURE: Electrophysiology Study & Programmed Stimulation: Following insertion of catheters as above, baseline measurements were obtained and programmed stimulation was performed as described below. Programmed extra stimulation was performed with evidence of dual AV jovan physiology and to echo beats. Isuprel was [...] AND ABLATION: Arrhythmias Induced: A.Typical ANRT--Non-Sustained -SVT EF=834 -Induction:500/400/320 ms on 5 mcg/min of Isuprel -Termination:spontaneous -Earliest RG atrial activation was the HBE-A -During SVT the BN=788 ms; -During SVT the VA time=11 ms Mapping and Ablation: We advanced the EPT [id number] mapping/ablation catheter to the right atrium, and the His and AV node were mapped extensively using the intracrdiac 3-D mapping system and the HIS region was identified and displayed on the Ensite NavX mapping system. Applications of RF energy [...] end of the study. Performing Organization Address City/State[facility] Phone Number OTHER OUTSIDE LAB in this encounter Visit Diagnoses Diagnosis AVNRT (AV jovan re-entry tachycardia) ([facility]) - Primary Other specified cardiac dysrhythmias SVT (supraventricular tachycardia) ([facility]) Other specified cardiac dysrhythmias Palpitations Admitting Diagnoses Diagnosis SVT (supraventricular tachycardia) ([facility]) - UNKNOWN Other specified cardiac dysrhythmias SVT (supraventricular tachycardia) ([facility]) Administered Medications Medication Order MAR Action Action Date Dose Rate Site acetaminophen (TYLENOL) tablet 650 mg 650 mg, Oral, EVERY 4 HOURS PRN, Starting Odalys 01/21/18 at 0608, Until Thu01/22/18 at 1507, Pain non-opioid: may be used alone or in combination with opioid analgesia, TOTAL ACETAMINOPHEN DOSE NOT TO EXCEED 4GM DAILY albuterol (PROAIR HFA, VENTOLIN HFA, or PROVENTIL HFA) inhaler 2 puff 2 puff, Inhalation, RT EVERY 4 HOURS PRN, Starting Thu01/22/18 at 0643, Until Thu01/22/18 at 1507, RT PROTOCOL, When administered by RT, will be per RT policy. aluminum/magnesium hydroxide (MAALOX) oral suspension 30 mL 30 mL, Oral, EVERY 4 HOURS PRN, Starting Odalys 01/21/18 at 0608, Until Thu01/22/18 at 1507, Indigestion/Heartburn, Admission/Obs/Extended Recovery budesonide/formoterol (SYMBICORT HFA) Given 01/22/2018 2 puffs 160/4.5 mcg inhalation 2 puff 06:08 CDT 2 puff, Inhalation, RT TWICE DAILY, First dose on Odalys 01/21/18 at 1800, Until Discontinued, When administered by RT, will be per RT policy. diazePAM (VALIUM) injection 5 mg 5 mg, Intravenous, NEEDED (WORM FARMER FROM RX), 1 dose, Starting Odalys 01/21/18 at 1112, Until Thu01/22/18 at 1507, Other..., Anxiety for Sheath Removal famotidine (PEPCID) tablet 20 mg Given 01/21/2018 20 mg 20 mg, Oral, TWICE DAILY, First dose on 20:55 CDT Odalys 01/21/18 at 2100, Until Discontinued, Admission/Obs/Extended Recovery fentaNYL citrate PF (SUBLIMAZE) injection 25-75 mcg 25-75 mcg, Intravenous, EVERY 2 HOURS PRN, Starting Odalys 01/21/18 at 1012, Until Thu01/22/18 at 1507, Pain Injectable HYDROcodone/acetaminophen (NORCO) 5/325 mg tablet 1 tablet 1 tablet, Oral, EVERY 4 HOURS PRN, Starting Odalys 01/21/18 at 1012, Until Thu01/22/18 at 1507, Pain PO, TOTAL ACETAMINOPHEN DOSE NOT TO EXCEED 4GM DAILY NOTE: This is a HIGH ALERT Medication. lidocaine PF 1% (10 mg/mL) injection 0.1-2 mL 0.1-2 mL, Injection, NEEDED, Starting Odalys 01/21/18 at 0608, Until Thu01/22/18 at 1507, Other..., for peripheral IV insertion, Pre-Op milk of magnesia (CONC) oral suspension 10 mL 10 mL, Oral, EVERY 6 HOURS PRN, Starting Odalys 01/21/18 at 0608, Until Thu01/22/18 at 1507, Constipation PO, 10 mL CONC=30 mL MOM. montelukast (SINGULAIR) tablet 10 mg Given 01/21/2018 10 mg 10 mg, Oral, AT BEDTIME DAILY, First 20:55 CDT dose on Odalys 01/21/18 at 2100, Until Discontinued, Admission/Obs/Extended Recovery ondansetron (ZOFRAN) injection 4 mg 4 mg, Intravenous, EVERY 6 HOURS PRN, Starting Odalys 01/21/18 at 1012, Until Thu01/22/18 at 1507, Nausea/Vomiting Injectable oxyCODONE/acetaminophen (PERCOCET; Given 01/21/2018 1 tablet ENDOCET; ROXICET) 5/325 mg tablet 1 20:55 CDT tablet 1 tablet, Oral, TWICE DAILY, First dose on Odalys 01/21/18 at 2100, Until Discontinued, TOTAL ACETAMINOPHEN DOSE NOT TO EXCEED 4GM DAILY pravastatin (PRAVACHOL) tablet 10 mg Given 01/21/2018 10 mg 10 mg, Oral, AT BEDTIME DAILY, First 20:57 CDT dose on Odalys 01/21/18 at 2100, Until Discontinued, Admission/Obs/Extended Recovery sodium chloride 0.9 % infusion Given - New 01/21/2018 75 mL/hr 1,000 mL, Intravenous, at 75 mL/hr, Bag 06:46 CDT CONTINUOUS, Starting Odalys 01/21/18 at 0615, Until Thu01/22/18 at 1507, -EF >35%: NS @ 75 mL/hr to be started the morning of the procedure (not to exceed 750 mL) -EF <35%: NS @ 20 mL/hr to be started the morning of procedure (not to exceed 500 mL) Dose/Rate Verify 01/21/2018 75 mL/hr 10:35 CDT sodium chloride 0.9 % infusion Given - New 01/21/2018 125 mL/hr 1,000 mL, Intravenous, at 125 mL/hr, Bag 12:47 CDT CONTINUOUS, Starting Odalys 01/21/18 at 1015, Until Thu01/22/18 at 1507, IV infusion to run at 125 mL/hr, saline lock when patient tolerates PO intake. tiotropium (SPIRIVA) capsule for inhaler Given 01/22/2018 1 capsule 1 capsule 06:09 CDT 1 capsule, Inhalation, RT DAILY, First dose on Odalys 01/21/18 at 1500, Until Discontinued, Admission/Obs/Extended Recovery vancomycin (VANCOCIN) 1,250 mg in Given - See 01/21/2018 0 mg 0 mL/hr dextrose 5% (D5W) IVPB OR/Proc 08:08 CDT 1,250 mg (rounded from 1,299 mg=15 mg/kg Flowsheet 86.6 kg), Intravenous, 275 mL, Administer over 60 Minutes, EVERY 12 HOURS, 2 doses, First dose on Odalys 01/21/18 at 0615, Last dose on Odalys 01/21/18 at 1815, -Give pre-op dose in pre/post or ICU within 2 hours prior to incision. Give post-op dose 12 hours after pre-op dose. -Note Pharmacokinetic Monitoring: Please record infusion start time (Action=Given) and stop time (Action=Completed) of dose when blood levels are drawn. Given - New Bag 01/21/2018 1,250 mg 275 mL/hr 21:18 CDT in this encounter
--- OUTSIDE RECORDS SUMMARY | 2018-03-18 20:00 | XMS REPORT | Encounter Summary ---
Author Author [facility] Organization [facility] Address Unknown Phone Unavailable Care Team Providers Care Employee Relations Director Name Role Phone RubinaDarling Domenica DO Unavailable Unavailable Herman Castrejon PHARMD Unavailable Unavailable Didi Louie OCCUPANCY SPECIALIST PCP Reason for Referral * Radiology Services Status Reason Specialty Diagnoses / Referred By Referred To Procedures Contact Contact No Auth Needed Radiology Diagnoses Hesham Russo Bh2 Nuclear Med Cancer of floor [address] of [facility] ([facility]) [address] [facility] [address] [place], [place] [address] [place] [address] Phone: ([place]) [phone] * Radiology Services Status Reason Specialty Diagnoses / Referred By Referred To Procedures Contact Contact No Auth Needed Radiology Diagnoses Hesham Russo Bh2 Nuclear Med Cancer of floor MD [address] ([facility]) [address] [facility] [address] [place], [place] [address] [place] [address] Phone: ([place]) [phone] Reason for Visit * Radiology Services Status Reason Specialty Diagnoses / Referred By Referred To Procedures Contact Contact No Auth Needed Radiology Diagnoses Hesham Russo Bh2 Nuclear Med Cancer of floor [address] ([facility]) [address] [place] [facility] [address] [place], [place] [address] [place] [address] Phone: ([place]) [phone] Encounter Details Date Type Department Care Team Description 01/29/2018 Hospital [facility] Hesham Russo MD Encounter Hospital Radiology [address] [facility] 2[address] [place] [address] [place] [address] [place] [address] [phone] Social History Tobacco Use Types Packs/Day Years [...] on fileas of this encounter Results * [place] ([place]) (01/29/2018 [...] The current mean hepatic SUV (reported for plant quality manager purposes) is 2.5. Blood glucose level (at [...] The current mean hepatic SUV (reported for plant quality manager purposes) is 2.5. 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
--- OUTSIDE RECORDS SUMMARY | 2018-03-18 20:00 | XMS REPORT | Encounter Summary ---
Author Author [facility] Organization [facility] Address Unknown Phone Unavailable Care Team Providers Care Technical Support Director Name Role Phone Darling Cespedes DO Unavailable Unavailable Herman Castrejon PHARMD Unavailable Unavailable Didi Louie APRN PCP Encounter Details Date Type Department Care Team Description 01/18/2018 Procedure Pass [facility] Radiology [facility] [address] [place] [address] Social History Tobacco Use Types Packs/Day Years [...]
--- OUTSIDE RECORDS SUMMARY | 2018-03-18 20:00 | XMS REPORT | Encounter Summary ---
Author Author [facility] Organization [facility] Address Unknown Phone Unavailable Care Team Providers Care Broadcaster Name Role Phone RubinaDarling Domenica DO Unavailable Unavailable Herman Castrejon PHARMD Unavailable Unavailable Didi Louie MANAGER RAIL PCP Reason for Referral * Radiology Services Status Reason Specialty Diagnoses / Referred By Referred To Procedures Contact Contact New Request Radiology Diagnoses Hesham Russo, Cancer of floor [facility] ([facility]) [address] rocedures [place] [address] [place], [place] [address] [place] [address] Phone: W/CONTRAST [phone] * Radiology Services Status Reason Specialty Diagnoses / Referred By Referred To Procedures Contact Contact New Request Radiology Diagnoses Hesham Russo, Cancer of floor [facility] ([facility]) [address] [place]cedures [place] [address] [place], [place] [address] [place] [address] Phone: W/CONTRAST [phone] * Radiology Services Status Reason Specialty Diagnoses / Referred By Referred To Procedures Contact Contact No Auth Needed Radiology Diagnoses Hesham Russo, Bh2 Nuclear Med Cancer of floor [address] of [facility] ([facility]) [address] rocedures [place] [address] [place], [place] [address] [place] [address] Phone: CT CHEST W CONTRAST [phone] SOFT Fax: TISSUE NECK [phone] W/CONTRAST MATERIAL * Radiology Services Status Reason Specialty Diagnoses / Referred By Referred To Procedures Contact Contact No Auth Needed Radiology Diagnoses Hesham Russo Bh2 Nuclear Med Cancer of floor [address] ([facility]) [address] [facility] [address] [facility] [place] [address] [place] [address] [place] [address] Phone: CT CHEST W CONTRAST [phone] SOFT Fax: TISSUE NECK [phone] W/CONTRAST MATERIAL Reason for Visit * Radiology Services Status Reason Specialty Diagnoses / Referred By Referred To Procedures Contact Contact No Auth Needed Radiology Diagnoses Hesham Russo Bh2 Nuclear Med Cancer of floor [address] ([facility]) [address] [facility] [address] [facility] [place] [address] [place], [place] [address] [place] [address] Phone: CT CHEST W CONTRAST [phone] SOFT Fax: TISSUE NECK [phone] W/CONTRAST MATERIAL Encounter Details Date Type Department Care Team Description 01/29/2018 Hospital [facility] Hesham Russo MD Encounter Hospital Radiology [address] [place] [address] [place] [address] [place] [address] [phone] Social History Tobacco Use Types Packs/Day Years [...] fileas of this encounter Results * [place] CT [place] CONTR[place] (01/29/2018 [...] Number [facility] * [place] CT CHEST [place] CONTRAST [...] City/State/Zipcode Phone Number [facility] * POC GLUCOSE (01/29/2018 7:46 AM) Glucose, POC 82 70 - 100 MG/DL [facility] Performing Organization Address City/State/[employer] Phone Number [facility] LAB [address] [place] [address] in this encounter Visit Diagnoses Diagnosis 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 sodium chloride PF 0.9% injection 50 mL Given 01/29/2018 50 mL 50 mL, Intravenous, ONCE, 1 dose, Thu 10:15 CDT 01/29/18 at 0930, Intra-procedure (IR) in this encounter
--- OUTSIDE RECORDS SUMMARY | 2018-03-18 20:00 | XMS REPORT | Encounter Summary ---
Author Author [facility] Organization [facility] Address Unknown Phone Unavailable Care Team Providers Care Water And Fire Technician Name Role Phone RubinaDarling Domenica DO Unavailable Unavailable Herman Castrejon PHARMD Unavailable Unavailable Didi Louie APRN PCP Reason for Visit * Auth/Cert Status Reason Specialty Diagnoses / Referred By Referred To Procedures Contact Contact Diagnoses SVT (supraventricula r tachycardia) (HCC) UNKNOWN P rocedures [place] EPHYS EVAL W/ABLATION SUPRAVENT ARRHYTHMIA INTRACARDIAC CATHETER ABLATION WITH COMPREHENSIVE ELECTROPHYSIOLOG IC EVALUATION - ATRIOVENTRICULAR SLIM REENTRY TACHYCARDIA Encounter Details Date Type Department Care Team Description 01/21/2018 Anesthesia HC2 EP LAB Dhaval Arreola CRNA Event [address] [facility]. [address] [place] [address] [place] [address] [place] [address] [phone] Anesthesia Record Procedure Name Responsible Anesthesia Start Time Anesthesia Stop Time Anesthesiologist INTRACARDIAC CATHETER 01/22/18 0747 ABLATION WITH COMPREHENSIVE ELECTROPHYSIOLOGIC EVALUATION - ATRIOVENTRICULAR SLIM REENTRY TACHYCARDIA (N/A ) Date Time Event Comment 745 Out of Pre 2018 Procedure 0747 In Room 746 Anes Start 2018 Meds * No agents on file. * No blood administrations on file. Type Details Placement Removal Wounds 02/15/18; 1651; Chin to Neck to Chest; 02/15/18 1651 by Anam, (NOT for Surgical Incision; BILATERAL NECK- CINTHIA Lai Pressure BACITRACIN OINTMENT Injuries) Gastrostom 02/17/18; 1531; Left, Upper, Quadrant 02/17/18 1531 by Ryan Gomez RN Puncture 01/21/18; 1014; Right; Femoral; 01/21/18 1014 by Mendes, 01/22 0916 by Wound 01/22/18; 0916 CINTHIA Barker Ruth, RN (Sheath) Puncture 01/21/18; 1014; Left; Femoral; 01/22/18; 01/21/18 1014 by Mendes , 01/22/18 0916 by Wound 0916 CINTHIA Barker Ruth, RN (Sheath) Peripheral 01/21/18; 2128; IV Therapy; R; Inner; 01/21/18 2128 by Mots, 01/22/18 0916 by IV Forearm; 22 G; No; 1; 1 inches; CINTHIA Bryant Ruth, RN 01/22/18; 0916 Peripheral 01/29/18; 0822; IV Therapy; R; 01/29/18 0822 by 01/29/18 1040 by Andreas, IV Antecubital; 20 G; No; Ultrasound; 1; 1 Raleigh Gaming RN Roverto inches; 01/29/18; 1040 Peripheral 02/15/18; 1007; RN (CINTHIA Dumont); L; 02/15/18 1007 by Horn, 1750 by Dhara, IV Outer; Hand; 20 G; Lidocaine Prep; 1; CINTHIA Hussein RN Symptomatic (phlebitis, pain, leaking, infiltration); 02/18/18; 1750 ETT 02/15/18; 1416; Ventilated by mask (1); 02/15/18 1416 by American, 12/28 1637 by American, Direct laryngoscopy, Stylet; LOY Rivas CRNA Single-Lumen; Mac; 3; Oral; 1-Full view of the glottis; 1 insertion attempt; Auscultation, ETCO2 Detector; 22 centimeters; 02/15/18; 1637 [place] 02/15/18; 1545; Left, Outer; Neck; 19 02/15/18 1545 by Anam, 02/17/18 0700 by Marilu Arreaga FR; #1; 02/17/18; 0700; Other (Comment) CINTHIA Lai RN Drain Jackson 02/15/18; 1549; Outer, Right; Neck; 19 02/15/18 1549 by Anam 02/18/18 1500 by Marilu Jules; #2; 02/18/18; [...]
--- OUTSIDE RECORDS SUMMARY | 2018-03-18 20:00 | XMS REPORT | Encounter Summary ---
Author Author [facility] Organization [facility] Address Unknown Phone Unavailable Care Team Providers Care Hand Tire Trimmer Name Role Phone RubinaDarling hubbard Domenica DO Unavailable Unavailable Herman Castrejon PHARMD Unavailable Unavailable Didi Louie COMMUNICATIONS SCIENTIST PCP Reason for Visit * Reason Comments Cancer * Consult, Test & Treat (Routine) Status Reason Specialty Diagnoses / Referred By Referred To Procedures Contact Contact No Auth Needed Otolaryngology Diagnoses Chucky Maguire Kakarala, Kiran, NEW, MAGGY SANTANA MD MD [facility] [address] [place] NEW PATIENT [id number] Phone: Fax: Encounter Details Date Type Department Care Team Description 01/29/2018 Office Visit [facility] Hesham Russo MD Oral cancer (HCC) Physicians - ENT [address] (Primary Dx) Ortho and Medical [place] [address] [place] [address] [phone] [place] [address] Social History Tobacco Use Types Packs/Day Years Used Date Former Smoker Cigarettes 2 20 Quit: 05/28/2015 Smokeless Tobacco: Never Used Alcohol Use Drinks/Week oz/Week Comments No used to have 10-12 beers/day;10 shots/week quit 2003 Sex Assigned at Date Recorded Not on file as of this encounter Last Filed Vital Signs Vital Sign Reading Time Taken Blood Pressure 150/67 01/29/2018 10:52 AM CDT Pulse 73 01/29/2018 10:52 AM CDT Temperature - - Respiratory Rate - - Oxygen Saturation - - Inhaled Oxygen - - Concentration Weight 87.1 kg (192 lb) 01/29/2018 10:52 AM CDT Height 157.5 cm (5' 2") 01/29/2018 10:52 AM CDT Body Mass Index 35.12 01/29/2018 10:52 AM CDT in this encounter Instructions * Patient Instructions - Mindy Cardenas LPN - 01/29/2018 10:45 AM CDT General Instructions for Surgery Patients Your Surgery is scheduled for February 15, [address] Hesham Russo Preparing for Surgery ? Hold Vitamin E, Vitamin A, Fish oil, multivitamin, and herbal supplements for 14 days prior to surgery. Hold Ibuprofen (Advil, Motrin), Naproxen (Aleve), and any other Non-Steroidal Anti-inflammatory medications for 7 days prior to surgery. If you take aspirin or any blood thinners, please contact the prescribing physician for recommendation regarding holding these medications prior to surgery. Do not stop taking any heart medications or aspirin without seeking the Approval of your Auto Body Detailer. ? Refrain from smoking two weeks before and two weeks after surgery. Nicotine and tobacco smoke delays healing and can result in scarring. This is the perfect time to give up the habit. ? Do not eat or drink anything, including water, after midnight the night before your Surgery. ? Arrange for someone to take you home from the hospital. You will not be allowed to drive or leave alone. Arrange to have someone to be with you the first 24 hours following surgery. You will receive a call from a Surgery Coordinator, by late afternoon the day before surgery. You may reach her by calling . Your surgery is scheduled at [facility]. Park in the parking garage off of [facility]. Enter the [facility] through the 1st floor main entrance. Check in with admitting on 1st floor. Please park on the [place] of the Building in the [address]. Once you enter the building, you should be facing the Information Desk. Proceed to the Admissions Office, located on the ground floor, to the left of the Information Desk. The Day of Surgery ? Do not eat or drink anything, including water, after midnight the morning of surgery. Essential medication may be taken with a sip of water. ? Wear loose-fitting clothes that fasten in front or back. Avoid clothing that pulls over your head. ? Leave all valuables at home; do not wear jewelry. ? Do not wear any facial or eye make-up. Avoid nail occitan. ? You may wear glasses but do not wear contact lenses. ? If you wear dentures, keep them in. ? Bring ID and insurance card with you. DONT TAKE CHANCES! If you are concerned about anything you consider significant, call us at [phone] business hours, ask for your nurse , Mindy, or the on-call nurse. After hours ask to speak to the ENT doctor instrument and control service person. in this encounter Progress Notes * Hesham Russo MD - 01/29/2018 10:45 AM CDT Formatting of this note may be different from the original. Chief Complaint Patient presents with Cancer History of Present Illness: Lona Coburn is a 67 y.o. year old female evaluated on 01/29/2018, in the Otolaryngology-Head and Neck Surgery Clinic at the [facility]. The patient was referred by Dr. 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 PLAN: After review of the various options including the risks, benefits and alternatives, Ms. Coburn has opted to proceed with surgery as [...] prior to surgery. I believe that Ms. Coburn has a good understanding of the issues involved and I answered all of her questions. Attending Physician Note I independently interviewed, examined and formulated the medical decision making for Ms. Coburn. Details of my interview, examination findings, and medical decision-making confirmed the findings in the resident physician's documentation. I have personally amended the resident physician's documentation in bold where appropriate. Staff name: Hesham Russo MD Date: 01/29/2018 in this encounter Plan of Treatment Not on fileas of this encounter Visit Diagnoses Diagnosis Oral cancer (HCC) - Primary Malignant neoplasm of mouth, unspecified site
--- OUTSIDE RECORDS SUMMARY | 2018-03-18 20:00 | XMS REPORT | Encounter Summary ---
Author Author [facility] Organization [facility] Address Unknown Phone Unavailable Care Team Providers Care Fixed Wing Pilot Name Role Phone RubinaDarling hubbard Domenica DO Unavailable Unavailable Herman Castrejon PHARMD Unavailable Unavailable Didi Louie DRAIN TILE PRESS OPERATOR PCP Reason for Visit * Reason Comments Medication Follow-up question re:diltiazem and eliquis Encounter Details Date Type Department Care Team Description 01/27/2018 Telephone [facility] Cardiology Madeline Bhat RN Medication Follow-up [address] [facility] (question re:[place] [id number] and eliquis) [phone] Social History Tobacco Use Types Packs/Day Years Used Date Former Smoker Cigarettes Quit: 05/28/2013 Smokeless Tobacco: Never Used Alcohol Use Drinks/Week oz/Week Comments No Sex Assigned at Date Recorded Not on file as of this encounter Miscellaneous Notes * Telephone Encounter - Madeline Bhat RN - 01/28/2018 9:39 AM CDT reviewed message below with Dr Ruiz. Advised Lona stop the diltiazem now. She will f/u with Dr Fong regarding insertion of LINQ monitoring. will defer anticoagulation, eliquis, to Dr Fong. Reviewed with Jaclyn, daughter. They will be in contact with his office * Telephone Encounter - Madeline Bhat RN - 01/27/2018 5:08 PM CDT HR 50 - 60 beats per minute. held diltiazem today, will hold in am and will discuss with Dr Ruiz. hospital discharge state that both diltiazem and eliquis discontinued * Telephone Encounter - Madeline Bhat RN - 01/27/2018 5:08 PM CDT ----- Message from Lona Gan LPN sent at 01/27/2018 4:26 PM CDT ----- Regarding: MPE- post issue VM from daughter # [phone] on triage line. She had ablation on 01-21-18. Her heart rate has dropped really low. Can she stop her Diltiazem? in this encounter Plan of Treatment Not on fileas of this encounter Visit Diagnoses Not on filein this encounter
--- OUTSIDE RECORDS SUMMARY | 2018-03-18 20:00 | XMS REPORT | Encounter Summary ---
Author Author [facility] Organization [facility] Address Unknown Phone Unavailable Care Team Providers Care Tenterer Name Role Phone Darling Cespedes DO Unavailable Unavailable Herman Castrejon PHARMD Unavailable Unavailable Didi Louie APRN PCP Encounter Details Date Type Department Care Team Description 01/19/2018 Procedure Pass [facility] Radiology [facility] [address] [place] [address] Social History Tobacco Use Types Packs/Day Years [...]
--- OUTSIDE RECORDS SUMMARY | 2018-03-18 20:01 | XMS REPORT | Encounter Summary ---
Author Author [facility] Organization [facility] Address Unknown Phone Unavailable Care Team Providers Care Fire Hose Curer Name Role Phone RubinaDarling Domenica DO Unavailable Unavailable Herman Castrejon PHARMD Unavailable Unavailable Didi Louie APRN PCP Encounter Details Date Type Department Care Team Description 01/11/[address] [facility] Cardiology Cordelia Araya RN [facility] [address] [place] [address] 300 [address] [place] [address] Social History Tobacco Use Types Packs/Day Years Used Date Former Smoker Cigarettes Quit: 05/28/2013 Smokeless Tobacco: Never Used Alcohol Use Drinks/Week oz/Week Comments No Sex Assigned at Date Recorded Not on file as of this encounter Miscellaneous Notes * Telephone Encounter - Cordelia Araya RN - 01/11/2018 2:22 PM CDT Discussed questions with patients daughter. No further questions or concerns at this time. * Telephone Encounter - Cordelia Araya RN - 01/11/2018 2:17 PM CDT ----- Message from Yamel Dixon sent at 01/11/2018 12:07 PM CDT ----- Regarding: MPE-Procedure questions Jaclyn pts daughter calling asking for a call back at [phone], she has procedure questions. in this encounter Plan of Treatment Not on fileas of this encounter Visit Diagnoses Not on filein this encounter
--- OUTSIDE RECORDS SUMMARY | 2018-03-18 20:01 | XMS REPORT | Encounter Summary ---
Author Author [facility] Organization [facility] Address Unknown Phone Unavailable Care Team Providers Care Fiberglass Technician Name Role Phone Rubina Darling Domenica DO Unavailable Unavailable Herman Castrejon PHARMD Unavailable Unavailable Didi Louie SURGERY SCHEDULING COORDINATOR PCP Encounter Details Date Type Department Care Team Description 01/16/2018 Pre-Admit XDD CARDIOLOGY Machelle Awan APRN SVT ( supraventricular Orders Only [address] tachycardia) (HCC) [address] (Primary Dx) [place] [address] Social History Tobacco Use Types Packs/Day Years Used Date Former Smoker Cigarettes Quit: 05/28/2013 Smokeless Tobacco: Never Used Alcohol Use Drinks/Week oz/Week Comments No Sex Assigned at Date Recorded Not on file as of this encounter Plan of Treatment Not on fileas of this encounter Visit Diagnoses Diagnosis SVT (supraventricular tachycardia) (HCC) - Primary Other specified cardiac dysrhythmias
--- OUTSIDE RECORDS SUMMARY | 2018-03-18 20:01 | XMS REPORT | Encounter Summary ---
Author Author [facility] Organization [facility] Address Unknown Phone Unavailable Care Team Providers Care Electromedical Equipment Technician Name Role Phone Darling Cespedes DO Unavailable Unavailable Herman Castrejon PHARMD Unavailable Unavailable Didi Louie APRN PCP Reason for Visit * Reason Comments Navigation Assessment Encounter Details Date Type Department Care Team Description 01/18/2018 Telephone [facility] Lesia Gregorio RN Navigation Assessment [facility] [address] [place] [phone] Social History Tobacco Use Types Packs/Day Years Used Date Former Smoker Cigarettes Quit: 05/28/2013 Smokeless Tobacco: Never Used Alcohol Use Drinks/Week oz/Week Comments No Sex Assigned at Date Recorded Not on file as of this encounter Miscellaneous Notes * Telephone Encounter - Lesia Gregorio RN - 01/18/2018 10:17 AM CDT Navigation Intake Assessment Document Patient Name: Lona Coburn : 1950 Insurance: Medicare / Medicaid Appointment Info: ThuJanuary 29 at 10:[address] Rafaela ANGELES January 29 at 12:30 pm in main hospital Diagnosis & Reason for Visit: SCCA floor of mouth Physician Info: Referring Physician: Dr Chucky Maguire, ENT Contact Name & Number: [phone] PCP: Dr Didi Louie Other: Dr Ruiz, Cardio at Location of Films: IN HOUSE Location of Pathology: Patient notified outside pathology slides will be obtained for review by pathologist and a facility and professional fee will be billed to their insurance.Slides requested 01/18/18. History of Present Illness: 67 year old female who recently noticed red bumps and painful area [...] at CT C and N and PET scheduled for 01/29 - results pending Prior Treatment (XRT, Surgery, Chemotherapy): None Comments: Former smoker x 50 years - quit 3 years ago, No ETOH PMH: Hx of CVA 2014 - some expressive aphasia, PSVT s/p ablation 01/21/18, PAD, CABG, Hip replacement Pt has chronic back and leg pain and uses Oxycodone 5/325 bid. NEEDS Assessment: Genetic Counseling: Not Applicable Nutrition: Wears dentures, Uses lowers prn Lost 17 lbs in past 3 months. Social Work/Financial: Dtr and son come to her house to care for her 02/02. [employer] requested for the night before appointments. Spiritual & Emotional: Emotional support provided Physical: Wheelchair /cane. Relies on family to assist with ADL's. Family manages household and stay with pt 02/02 in pt's home. Pt has some SOA with activity, but uses 02 intermittently and rarely per dtr report. Communication: Minor expressive aphsia post CVA, Understands commands and able to make needs known. Pt is included in decision making regarding her needs. Oncofertility - Females age 40 and under; Males age 50 and under : Not applicable in this encounter Plan of Treatment Not on fileas of this encounter Visit Diagnoses Not on filein this encounter
--- OUTSIDE RECORDS SUMMARY | 2018-03-18 20:01 | XMS REPORT | Encounter Summary ---
Author Author [facility] Organization [facility] Address Unknown Phone Unavailable Care Team Providers Care Cattle Knocker Name Role Phone RubinaDarling hubbard Domenica DO Unavailable Unavailable Herman Castrejon PHARMD Unavailable Unavailable Didi Louie APRN PCP Reason for Visit * Auth/Cert Status Reason Specialty Diagnoses / Referred By Referred To Procedures Contact Contact Diagnoses SVT (supraventricula r tachycardia) (HCC) UNKNOWN P rocedures VT EPHYS EVAL W/ABLATION SUPRAVENT ARRHYTHMIA INTRACARDIAC CATHETER ABLATION WITH COMPREHENSIVE ELECTROPHYSIOLOG IC EVALUATION - ATRIOVENTRICULAR JOVAN REENTRY TACHYCARDIA Encounter Details Date Type Department Care Team Description 01/21/2018 Surgery HC2 EP LAB Pranav Ruiz MD INTRACARDIAC CATHETER [address] [place] [place] [address] [address] COMPREHENSIVE [phone] [place] [address] ELECTROPHYSIOLOGIC [phone] EVALUATION - ATRIOVENTRICULAR JOVAN REENTRY TACHYCARDIA Social History Tobacco Use Types Packs/Day Years [...] carotid artery disesae (side unknown) prior CVA (2014 w/ moderate residual expressive aphasia with right [...] Problems * (Principal)AVNRT (AV jovan re-entry tachycardia) (HCC) PSVT (paroxysmal supraventricular tachycardia) ([facility]) Surgical Procedures: None Significant Diagnostic Studies and [...] HOURS (8:00 AM - 4:30 PM): Call [phone] and asked to be transferred to your discharge attending physician. - AFTER BUSINESS HOURS (4:30 PM - 8:00 AM, on weekends, or holidays): Call [phone] and ask the vanstone machine operator to page the on-call doctor for the discharge attending physician. Discharging attending physician: PRANAV RUIZ [[id number]] Cardiac Diet Limiting unhealthy fats and cholesterol [...] home, you can call a dietitian at [phone]. Incision Care *Call if there is an increase in pain, swelling, or redness. *DO NOT soak incision in water. *NO tub baths, hot tubs, or swimming. *You may shower after discharge. Return Appointment Please schedule f/u with Dr. Fong in [address] Fong Return Appointment Please call [facility] Cardiology Central Scheduling Thursday through Thursday, between 8 a.m. to 5 p.m. to make your appointment at for 3 months @ the Cardiology Clinic. Provider PRANAV RUIZ [[id number]] REQUEST FOR CARDIOLOGY APPOINTMENT Standing Status: Future Standing Exp. Date: 01/21/19 Scheduling Priority: Routine 3 months per MPE request Schedule OV with (1st choice Provider) Pranav Ruiz M.D. Special Visit Type Electrophysiology Location of Appointment [facility] / [facility] or [place] Current Discharge Medication List START taking these medications Details magnesium oxide (MAG-OX) 400 mg tablet Take 1 tablet by mouth daily. Qty: 180 tablet, Refills: 3 PRESCRIPTION TYPE: Normal Associated Diagnoses: AVNRT (AV jovan re-entry tachycardia) ([facility]); Palpitations CONTINUE these medications which have [...] AM CDT PET SCAN [place] with PET-HOSPITAL [facility] Radiology (Radiology) [address] [facility] 2nd Floor [facility] [address] Jan 29, 2018 9:[address] NECK/CHEST (SCHED ONLY) with PET/CT-HOSPITAL [facility] Radiology (Radiology) [address] 2nd Floor [facility] [address] Jan 29, 2018 10:45 AM CDT New Patient with Hesham Russo MD [facility] Physicians - ENT ([facility]) 3rd Floor Pod C [address] [facility] [facility] [phone] Jan 29, 2018 12:30 PM CDT PAC Office Visit with PAC ROOM 4 Preoperative Assessment Clinic (--) [address] [facility] [address] Mar 19, 2018 1:30 PM CDT Return Patient with Alisson Bueno APRN-SPECIAL EDUCATION EDUCATIONAL ASSISTANT [facility] Cardiology ([facility]) [address] [facility] [address] Pending items needing follow up: as above [...] Date: 01/22/2018 [place] AC=Airway clearance AM=Aerosolized medication BA=[place] aerosol DB&C=Deep breathe & cough FEV1=Forced expiratory volume in first second) IC=Inspiratory capacity LE=Lung expansion MDI=Metered dose inhaler Neb=Nebulizer O2=Oxygen Oxim=Oximetry PEFR=Peak expiratory flow rate PATIENT ASSESSMENT COORDINATOR=Rapid Response Team * Pranav Ruiz MD - 01/21/2018 10:05 AM CDT Cardiac Electrophysiology Brief Post-Procedure Note Attending Anatomy And Physiology Instructor: Pranav Ruiz MD Fellow: NONE Preoperative diagnosis: [...] None Specimens removed: None Sheaths: 3 6 [place]er sheaths on the left through which the HRA catheter was positioned of the high lateral RA, his catheter was positioned to the AV junction, and the RV catheter was positioned in the RV apex. A 7 [place] sheath on the right for RF ablation and map catheter in the CS catheter via a 6 [place] sheath on the right. Recommendations: - Please refer to post-procedure note for full recommendations -Pain control as needed -Stop Diltiazem today. -Stop Eliquis -Discussed Linq implantation with Dr. Fong as outpatient -Follow-Up with Primary Resaw Operator in Dr. Fong in 1 month and with me, Dr. Ruiz--as needed or per Dr. Fong's recommendations. * Lucero Mendes RN - 01/21/2018 6:11 AM CDT Patient [...] see most recent H/P from 01/07/18 below. TRISHA Nails Pager [phone] Office Visit Open 01/07/2018 [facility] Cardiology Pranav Ruiz MD Cardiology New Patient , Tachycardia; Referred by Augie Fong MD Reason for Visit Progress Notes Pranav Ruiz MD (Physician) Cardiology 01/07/18 1015 Unsigned Date of Service: 01/07/2018 Lona Coburn is a 67 y.o. female. HPI I had the pleasure of seeing your patient Lona Coburn in the [facility] as a part of the [facility] Cardiology [place] office today for initial Electrophysiolgy Consultation regarding her SVT. She is typically followed and was referred by my partner Dr. Fong, her primary medical referral coordinator. Ms. Coburn is an exceptionally pleasant 67 [...] aphasia with right residual weakness; Anticoagulation; Cardiac [id number] by Dr. Fong --> Nonobstructive Disease-through Dr. Fong's Office; Moderate to Severe Chronic STANTON; Chronic Bronchitis; COPD; Type 2 diabetes; PAD-Right Superficial Femoral, Popliteal and anteriotibial; Prior Tobacco Abuse; History of DVT: Status Post Hip Arthroplasty with Total Hip Replacement She has a [id number] score of 5: Female; Age; DM-2; Prior [...] we would prusue CTI for potential AFL long term care social worker, regarding anticoagulation, I would possibly recommend [employer] Reveal LinQ Implantable Looping Monitor instead [...] LV Function By Remote Echo -- Cardiac [id number] by Dr. Fong --> Nonobstructive Disease- through [...] include, but not be limited to: , PA, stroke, cardiac perforation , complete heart block [...] Diagnosis Date Noted PSVT (paroxysmal supraventricular tachycardia) ([facility]) 01/07/2018 ECHO 11/20/15: normal LV with EF of 60-65%, trivial MR and TR, mild diastolic dysfunction. Palpitations 01/07/2018 AVNRT (AV jovan re-entry tachycardia) ([facility]) 01/07/2018 Chest pain 01/07/2018 CVA (cerebral vascular accident) ([facility]) 01/07/2018 Tobacco abuse, in remission 07/07/2013 PAD (peripheral artery disease) ([facility]) 07/07/2013 Dry gangrene ([facility]) 07/07/2013 Allergies Allergen Reactions Levaquin [Levofloxacin] [...] mg/dL [facility] Performing Organization Address [facility] Phone [facility] LAB [address] [place] [address] * BASIC METABOLIC PANEL (01/22/2018 3:00 AM) [...] for questions. Specimen Blood Performing Organization Address [facility] Phone Number MAIN LAB [address] [place] [address] * CBC (01/22/2018 3:00 AM) White Blood Cells 12.5 (H) 4.5 - 11.0 K/UL [facility] RBC 4.18 4.0 - 5.0 M/UL [facility] Hemoglobin 13.2 12.0 - 15.0 GM/DL [facility] Hematocrit 39.7 36 - 45 % [facility] MCV 95.0 80 - 100 [place] MAIN LAB MCH 31.5 26 - 34 PG [facility] MCHC 33.1 32.0 - 36.0 G/DL [facility] RDW 14.1 11 - 15 % [facility] Platelet Count 282 150 - 400 K/UL [facility] MPV 8.4 7 - 11 FL [facility] Specimen Blood Performing Organization Address City/State/Zipcode Phone Number [facility] [address] [place] [address] * EP STUDY (01/21/2018 10:15 AM) Impressions [...] Dr. Fong as outpatient -Follow-Up with Primary Resaw Operator in Dr. Fong in 1 month and with me, Dr. Ruiz--as needed or per Dr. Fong's recommendations. Narrative Performed At OTHER OUTSIDE LAB PROCEDURE: AV Node Modification-AVNRT RFA --Comprehensive EP study with coronary sinus catheter placement. --Acute drug testing Isuprel --Three-dimensional electroanatomic mapping using [employer] NavX. --Moderate sedation. 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 PAPER AND PRINTS RESTORER:Pranav Ruiz M.D. FAUCET POLISHER: NONE DATE:01/21/2018 INDICATION FOR PROCEDURE:Recurrent SVT BRIEF [...] catheter placed via access with a 6 [place]er sheath in the left femoral vein and advanced to the right ventricular apex. 2.EP His-curve quadrapolar catheter placed via access with a 6 [place] sheath in the left femoral vein and advanced to the His position. 3.EP Melanie-curve quadrapolar catheter placed via access with a 6 [place] sheath in the left femoral vein and advanced to the high right atrium. 4.EP decapolar deflectable catheter placed via access with a 6 [place] sheath in the right femoral vein and advanced to the coronary sinus. 5.4.0 mm [id number] EPTmapping/ablation catheter placed via access with a 7 [place] sheath in the right femoral vein and [...] AND ABLATION: Arrhythmias Induced: A.Typical ANRT--Non-Sustained -SVT PG=176 -Induction:500/400/320 ms on 5 mcg/min of Isuprel -Termination:spontaneous -Earliest RG atrial activation was the HBE-A -During SVT the YY=692 ms; -During SVT the VA time=11 ms Mapping and Ablation: We advanced the EPT [id number] mapping/ablation catheter to the right atrium, and the His and AV node were mapped extensively using the intracrdiac 3-D mapping system and the HIS region was identified and displayed on the [employer] NavX mapping system. Applications of RF energy [...] end of the study. Performing Organization Address City/State/Zipcode Phone Number OTHER OUTSIDE LAB in this encounter Visit Diagnoses Diagnosis SVT (supraventricular tachycardia) (HCC) Other specified cardiac dysrhythmias Admitting Diagnoses Diagnosis SVT (supraventricular tachycardia) (HCC) - UNKNOWN Other specified cardiac dysrhythmias SVT (supraventricular tachycardia) (HCC) Administered Medications Medication Order MAR Action Action Date Dose Rate Site acetaminophen (TYLENOL) tablet 650 mg 650 mg, Oral, EVERY 4 HOURS PRN, Starting Thu01/21/18 at 0608, Until Thu01/22/18 at 1507, Pain [...] mL, Oral, EVERY 4 HOURS PRN, Starting Thu01/21/18 at 0608, Until Thu01/22/18 at 1507, Indigestion/Heartburn, Admission/Obs/Extended Recovery budesonide/formoterol (SYMBICORT HFA) Given 01/22/2018 2 puffs 160/4.5 mcg inhalation 2 puff 06:08 CDT 2 puff, Inhalation, RT TWICE DAILY, First dose on Thu01/21/18 at 1800, Until Discontinued, When administered by RT, will be per RT policy. diazePAM (VALIUM) injection 5 mg 5 mg, Intravenous, NEEDED (ROOM SERVICE SERVER FROM RX), 1 dose, Starting Thu01/21/18 at 1112, Until Thu01/22/18 at 1507, Other..., [...]
--- OUTSIDE RECORDS SUMMARY | 2018-03-18 20:01 | XMS REPORT | Encounter Summary ---
Author Author [facility] Organization 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
--- OUTSIDE RECORDS SUMMARY | 2018-03-18 20:01 | XMS REPORT | Encounter Summary ---
Author Author [facility] Organization [facility] Address Unknown Phone Unavailable Care Team Providers Care Infant Babysitter Name Role Phone RubinaDarling Domenica DO Unavailable Unavailable Herman Castrejon PHARMD Unavailable Unavailable Didi Louie TEACHING PASTOR PCP Reason for Visit * Reason Comments Precertification Medicare Encounter Details Date Type Department Care Team Description 01/14/2018 Documentation [facility]iology Blu Snider RN Precertification [facility] (Medicare) [address] [place] [address] Social History Tobacco Use Types Packs/Day Years Used Date Former Smoker Cigarettes Quit: 05/28/2013 Smokeless Tobacco: Never Used Alcohol Use Drinks/Week oz/Week Comments No Sex Assigned at Date Recorded Not on file as of this encounter Progress Notes * Blu Snider RN - 01/14/2018 10:06 AM CDT Medicare is listed as patient's primary insurance coverage. Pre-certification is not required for hospitalizations. in this encounter Plan of Treatment Not on fileas of this encounter Visit Diagnoses Not on filein this encounter
--- OUTSIDE RECORDS SUMMARY | 2018-03-18 20:01 | XMS REPORT | Encounter Summary ---
Author Author [facility] Organization [facility] Address Unknown Phone Unavailable Care Team Providers Care Drum Builder Name Role Phone RubinaDarling Domenica DO Unavailable Unavailable Herman Castrejon PHARMD Unavailable Unavailable Didi Louie SHEET PILE DRIVER OPERATOR PCP Reason for Referral * Radiology Services Status Reason Specialty Diagnoses / Referred By Referred To Procedures Contact Contact No Auth Needed Radiology Diagnoses Hesham Russo Bh2 Nuclear Med Cancer of floor [address] ([facility] [address] [facility] [place] [address] [place], [place] [address] [place] [address] Phone: CT CHEST W CONTRAST [phone] SOFT Fax: TISSUE NECK [phone] W/CONTRAST MATERIAL * Radiology Services Status Reason Specialty Diagnoses / Referred By Referred To Procedures Contact Contact No Auth Needed Radiology Diagnoses Hesham Russo Bh2 Nuclear Med Cancer of floor [address] ([facility]) [address] [facility] rocedures [place] [address] [place], [place] [address] [place] [address] Phone: ([place]) [phone] * Radiology Services Status Reason Specialty Diagnoses / Referred By Referred To Procedures Contact Contact New Request Radiology Diagnoses Hesham Russo, Cancer of floor [facility] ([facility] [address] rocedures [place] [address] [place], [place] W/CONTRAST [address] Encounter Details Date Type Department Care Team Description 01/18/2018 Orders Only [facility] Hesham Russo MD Cancer of floor of mouth Physicians - ENT [address] ([facility]) (Primary Dx) Ortho and Medical [place] [address] [place] [address] [phone] [place] [address] Social History Tobacco Use Types Packs/Day Years Used Date Former Smoker Cigarettes Quit: 05/28/2013 Smokeless Tobacco: Never Used Alcohol Use Drinks/Week oz/Week Comments No Sex Assigned at Date Recorded Not on file as of this encounter Plan of Treatment Name Priority Associated Diagnoses Order Schedule CT NECK W/CONTRAST Routine Cancer of floor of mouth Expected: 01/18/2018 ([facility]) (Approximate), Expires: 01/18/2019 as of this encounter Results * NM CT CHEST W CONTRAST (01/29/2018 [...] The current mean hepatic SUV (reported for environmental quality analyst purposes) is 2.5. Blood glucose level (at [...] The current mean hepatic SUV (reported for environmental quality analyst purposes) is 2.5. Blood glucose level (at [...]
--- OUTSIDE RECORDS SUMMARY | 2018-03-18 20:01 | XMS REPORT | Encounter Summary ---
Author Author [facility] Organization [facility] Address Unknown Phone Unavailable Care Team Providers Care Saw Tailer Name Role Phone Darling Cespedes DO Unavailable Unavailable Herman Castrejon PHARMD Unavailable Unavailable Didi Louie APRN PCP Encounter Details Date Type Department Care Team Description 01/21/2018 Procedure Pass HC2 EP LAB [address] [place] [address] Social History Tobacco Use Types Packs/Day Years Used Date Former Smoker Cigarettes Quit: 05/28/2013 Smokeless Tobacco: Never Used Alcohol Use Drinks/Week oz/Week Comments No Sex Assigned at Date Recorded Not on file as of this encounter Plan of Treatment Not on fileas of this encounter Visit Diagnoses Not on filein this encounter
--- OUTSIDE RECORDS SUMMARY | 2018-03-18 20:02 | XMS REPORT | Encounter Summary ---
Author Author [facility] Organization [facility] Address Unknown Phone Unavailable Care Team Providers Care Gas Leak Inspector Name Role Phone Darling Cespedes Domenica DO Unavailable Unavailable Herman Castrejon PHARMD Unavailable Unavailable Didi Louie APRN PCP Reason for Visit * Reason Comments Labs Only Encounter Details Date Type Department Care Team Description 01/07/2018 Lab Only [facility] [place] Internal PSVT (paroxysmal Medicine supraventricular [facility] [place] Bldg2 3rd tachycardia) (HCC) [address] [place] [address] Social History Tobacco Use Types Packs/Day Years Used Date Former Smoker Cigarettes Quit: 05/28/2013 Smokeless Tobacco: Never Used Alcohol Use Drinks/Week oz/Week Comments No Sex Assigned at Date Recorded Not on file as of this encounter Plan of Treatment Not on fileas of this encounter Results * BASIC METABOLIC PANEL (01/07/2018 12:22 PM) Sodium 140 135 - 148 mEq/L [facility] Potassium 4.6 3.5 - 5.1 mEq/L [facility] Chloride 102 98 - 108 mEq/L [facility] Blood Urea Nitrogen 17 7 - 25 mg/dL [facility] Glucose 97 70 - 100 mg/dL [facility] Calcium 9.50 8.60 - 10.30 mg/dL [facility] eGFR Non 54.10 [facility] CO2 29 21 - 32 Remi/L [facility] Creatinine 1.07 (H) 0.40 - 1.00 mg/dL [facility] Specimen Blood Performing Organization Address City/State/Zipcode Phone Number [facility] [address] [facility], [address] [place] [address] in this encounter Visit Diagnoses Diagnosis PSVT (paroxysmal supraventricular tachycardia) (HCC) Paroxysmal supraventricular tachycardia
--- OUTSIDE RECORDS SUMMARY | 2018-03-18 20:02 | XMS REPORT | Encounter Summary ---
Author Author [facility] Organization [facility] Address Unknown Phone Unavailable Care Team Providers Care Business Coordinator Name Role Phone Darling Cespedes Domenica DO Unavailable Unavailable Herman Castrejon PHARMD Unavailable Unavailable Didi Louie [facility] PCP Reason for Visit * Reason Comments New Patient referred by Dr. Fong Tachycardia * Consult, Test & Treat Status Reason Specialty Diagnoses / Referred By Referred To Procedures Contact Contact New Request Specialty Cardiology Diagnoses Didi Louie, [facility] [place] (dyspnea on [facility]ILL[facility] Required exertion) [address] [facility] [address] Phone: [phone] Phone: [phone] Fax: Encounter Details Date Type Department Care Team Description 01/07/2018 Office Visit [facility] Pranav Ruiz MD New Patient (referred by [facility] [address] Fong); Tachycardia fl [address] [place] [address] [place] [address] [phone] Social History Tobacco Use Types Packs/Day Years Used Date Former Smoker Cigarettes Quit: 05/28/2013 Smokeless Tobacco: Never Used Alcohol Use Drinks/Week oz/Week Comments No Sex Assigned at Date Recorded Not on file as of this encounter Last Filed Vital Signs Vital Sign Reading Time Taken Blood Pressure 112/60 01/07/2018 10:50 AM CDT Pulse 57 01/07/2018 10:50 AM CDT Temperature - - Respiratory Rate - - Oxygen Saturation - - Inhaled Oxygen - - Concentration Weight 86.6 kg (191 lb) 01/07/2018 10:50 AM CDT Height 157.5 cm (5' 2") 01/07/2018 10:50 AM CDT Body Mass Index 34.93 01/07/2018 10:50 AM CDT in this encounter Progress Notes * Pranav Ruiz MD - 01/07/2018 10:15 AM CDT Formatting of this note may be different from the original. Date of Service: 01/07/2018 Lona Coburn is a 67 y.o. female. HPI I had the pleasure of seeing your patient Lona Coburn in the [facility] as a part of the [facility] [place] office today for initial Electrophysiolgy Consultation regarding her SVT. She is typically followed and was referred by my friend and colleague, Dr. Fong, her primary machinist class b. Ms. Coburn is an exceptionally pleasant 67 y.o. female, who is accompanied by her equally pleasant daughter, Ratna. All data in this note, including the past medical history, was newly collected today. Her PMHx briefly includes: Paroxysmal SVT; Normal LV Function By Prior Echo by Dr. 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 NOTEpatient is reported to have asymptomatic chronically low BP She has a [id number] score of 5: Female; Age; DM-2; Prior CVA -- 05/2013 and 02/2014: Significant PAD with stent of the left SFA and common iliac in May [address] Be and repeat intervention and stenting to the same artery by Dr. Cruz in 02/2014. At that time of the angiogram patient was also to have patent bilateral iliac stents placed previously. -- 03/2014: Recurrent PAD interventionatherectomy and angioplasty of right superficial femoral/popliteal/anterior tibial arteries by Dr. Cruz---> PAD reportedly currently followed by Dr. Hewitt in [place], [place]. -- 08/05/13: Patient reportedly had SVT suggestive of AVNRT documented on ECG. She was in the ED. She was treated with IV adenosine and broke the rhythm to normal sinus rhythm. There is no underlying atrial flutter atrial fibrillation at that time. This is all per report by Dr. Fong. This occurred in [facility]--> INITIATED on Verapamil. -- 01/04/15: Carotid Duplex at [facility] complete occlusion of the left ICA, left carotid bifurcation is prominent calcified plaque extending in the occluded left ICA. The right carotid bifurcation and ICA was without significant stenosis. -- 11/20/[address] Fongnormal LV function with EF 60-65%, trivial valvular disease, mild diastolic dysfunction, normal PAP. -- 12/03/17: Regular Narrow Complex Tachycardia-->ED presentation at [facility] in [facility]--concern for SVT or possible atrial flutter-->the tachycardia terminated with a Diltiazem bolus and since had a recurrent event on verapamil which terminated with a diltiazem bolus, her Verapamil was switched to Diltiazem. For the questionable AFL and given her history of stroke, she was initiated on Eliquis as a precaution. For her SVT and possible AFL she was referred for EP consultation by Dr. Fong. She STATES she feels tachypalpitations about once [...] discharge from the Emergency Department in November. She denies any bleeding issues-blood in the [...] Smoker (20 cigarettes per day for 45 years, stopping at age 63). She reportedly consumes alcohol 1-2 times per month. Most pertinent ROS is included/discussed throughout the note, e.g. HPI and A/P. ASSESSMENT AND PLAN: -- Supraventricular Tachycardia (SVT) -- ? 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 Fong --> Nonobstructive Disease- through Dr. Fong's Office -- Moderate to Severe Chronic STANTON -- Chronic Bronchitis -- COPD -- Type 2 Diabetes -- PAD-Right Superficial Femoral, Popliteal and anteriotibial -- Prior Tobacco Abuse -- History of DVT -- Status Post Hip Arthroplasty with Total Hip Replacement Although the faxed copies of the ECGs on Ms. Coburn presented to [facility] ED on 12/03/17 are somewhat difficult to interpret she has a clearly documented narrow complex tachycardia that is regular and as best can be discerned does not appear to have a visible P-wave but does have a potential RSR' in lead V1 may be somewhat more prominent than at her baseline. Lead to also has a potential P-wave at the terminal portion of the QRS. Therefore her rhythm on ECG a short R-P Tachycardia. I anticipate that she either has AV node Reentrant Tachycardia (AVNRT) appears to be more less likely a Concealed Bypass Tract Mediated Tachycardia. Although I cannot definitively rule out an Atrial Tachycardia. I do not see an ECG suggestive of atrial flutter although it is possible I do not have all of the rhythm strips, etc. that were documented We had a lengthy discussion regarding SVT, the pathophysiology of SVT, the different types of SVT, the mechanisms, and therapeutic options. She has no evidence of preexcitation and therefore I reassured her that she does not have WPW and therefore her SVT is not life-threatening. We also discussed the therapeutic options for SVT to include: AV jovan suppressing agents (which she is currently on), membrane stabilizing antiarrhythmic drug therapy, or pursuing EPS RFA. Re: RFA, We discussed if this is a Left Sided Pathway or Atrial Tachycardia that a Transeptal Puncture may be required. But I again emphasized that the likelihood of this I felt was low. We discussed the procedure itself along with its associated risks, rationale, options, and benefits in detail with Lona Coburn and family. We discussed the risks to include, but not be limited to: , [place], stroke, cardiac perforation , complete heart block which could result in the need for a permanent pacemaker , bleeding, swelling, hematoma, infection, DVT, or vascular injury. She, the patient expressed an understanding of the procedure and risks, and wishes to proceed. She was instructed to hold any AVN suppressing or Antiarrhythmic drug Tx for 72 hours prior to the procedure. Regarding her potential Atrial Flutter I have not seen clear documentation of atrial flutter. However, If we do not find any reentrant arrhythmias, we would prusue CTI for potential AFL If a clear SVTAVNRT, etc. is identified, then long-term, regarding anticoagulation, I would likely recommend Medtronic Reveal LinQ Implantable Looping Monitor Device Implantation instead of continued Chronic anticoagulation. PLAN: -- We will proceed with SVT RFA as noted above -- She will hold her AVN suppressing agents 3 days prior to the procedure -- Pending the result of the EP study, we may consider Medtronic Reveal LinQ Implantable Looping Monitor instead of continued anticoagulation -- Regarding her potential Atrial Flutter I have not seen clear documentation of atrial flutter. However, If we do not find any reentrant arrhythmias, we would prusue CTI for potential AFL -- Since she is on anticoagulation, I [...] Diagnosis Date Noted PSVT (paroxysmal supraventricular tachycardia) ([facility]) 01/07/2018 ECHO 11/20/15: normal LV with EF of 60-65%, trivial MR and TR, mild diastolic dysfunction. Palpitations 01/07/2018 AVNRT (AV jovan re-entry tachycardia) ([facility]) 01/07/2018 Chest pain 01/07/2018 CVA (cerebral vascular accident) ([facility]) 01/07/2018 Tobacco abuse, in remission 07/07/2013 PAD (peripheral artery disease) ([facility]) 07/07/2013 Dry gangrene ([facility]) 07/07/2013 Review of Systems Constitution: Positive for weakness. [...] tablet Take 3 mg by mouth daily. Documentation recorded by Maxwell Reyes, acting as scribe for Pranav Ruiz M.D. in this encounter Plan of Treatment Name Priority Associated Diagnoses Order Schedule ECG 12-LEAD Routine SVT (supraventricular Ordered: 01/20/2018 tachycardia) (HCC) Cerebrovascular accident (CVA) due to thrombosis of precerebral artery (HCC) PAD (peripheral artery disease) (HCC) PSVT (paroxysmal supraventricular tachycardia) (HCC) Palpitations as of this encounter Procedures Procedure Name Priority Date/Time Associated Diagnosis Comments ECG-SCAN 02/27/2018 Results for this 9:45 AM CDT procedure are in the results section. in this encounter Results * ECG-SCAN (02/27/2018 9:45 AM) Narrative Performed At Ordered by an unspecified provider. * ECG/QRS (01/07/2018 10:56 AM) QRS DURATION 84 OTHER OUTSIDE LAB Performing Organization Address City/State/Zipcode Phone Number OTHER OUTSIDE LAB in this encounter Visit Diagnoses Diagnosis SVT (supraventricular tachycardia) (HCC) - Primary Other specified cardiac dysrhythmias Cerebrovascular accident (CVA) due to thrombosis of precerebral artery (HCC) PAD (peripheral artery disease) (HCC) Peripheral vascular disease, unspecified PSVT (paroxysmal supraventricular tachycardia) (HCC) Paroxysmal supraventricular tachycardia Palpitations
--- OUTSIDE RECORDS SUMMARY | 2018-03-18 20:02 | XMS REPORT | Encounter Summary ---
Author Author [facility] Organization [facility] Address Unknown Phone Unavailable Care Team Providers Care Commissioner Conservation Of Resources Name Role Phone Rubina Darling Metzger DO Unavailable Unavailable Herman CastrejonD Unavailable Unavailable Didi Louie APRN PCP Reason for Visit * Reason Comments New Patient STANTON (dyspnea on exertion) Encounter Details Date Type Department Care Team Description 12/25/2017 Patient Profile [facility] Rubén Burgos New Patient ([place] ([facility] [id number] on exertion)) [address] [place] [address] Social History Tobacco Use Types Packs/Day Years Used Date Former Smoker Quit: 05/28/2013 Smokeless Tobacco: Never Used Alcohol Use Drinks/Week oz/Week Comments No Sex Assigned at Date Recorded Not on file as of this encounter Plan of Treatment Not on fileas of this encounter Visit Diagnoses Not on filein this encounter
--- OUTSIDE RECORDS SUMMARY | 2018-03-18 20:02 | XMS REPORT | Encounter Summary ---
Author Author [facility] Organization [facility] Address Unknown Phone Unavailable Care Team Providers Care Cut Off Operator Scorer Name Role Phone RubinaDarling Domenica DO Unavailable Unavailable Herman Castrejon PHARMD Unavailable Unavailable Didi Louie APRN PCP Encounter Details Date Type Department Care Team Description 01/07/2018 Orders Only [facility] Pranav Ruiz MD [place] [address] [facility] [address] [place] [address] [place] [address] [phone] Social History Tobacco Use Types Packs/Day Years Used Date Former Smoker Cigarettes Quit: 05/28/2013 Smokeless Tobacco: Never Used Alcohol Use Drinks/Week oz/Week Comments No Sex Assigned at Date Recorded Not on file as of this encounter Plan of Treatment Not on fileas of this encounter Results * CBC AND DIFF (01/07/2018 12:22 PM) [...] 14.5 % [facility] Performing Organization Address [facility] [place] Number [facility] [id number] [facility], [address] [place] [address] * MAGNESIUM (01/07/2018 12:22 PM) Magnesium 1.6 1.5 - 2.5 mg/dL [facility] Comment: Test Performed at: [facility] [address] [place], [id number] DIRK JORDAN DO,MPH Performing Organization Address [facility] [place] Phone Number [facility] [address] [place] [address] in this encounter Visit Diagnoses Not on filein this encounter
--- OUTSIDE RECORDS SUMMARY | 2018-03-18 20:02 | XMS REPORT | Encounter Summary ---
Author Author [facility] Organization [facility] Address Unknown Phone Unavailable Care Team Providers Care Food Tray Assembler Name Role Phone RubinaDarling Domenica DO Unavailable Unavailable Herman Castrejon PHARMD Unavailable Unavailable Didi Louie APRN PCP Encounter Details Date Type Department Care Team Description 12/21/2017 Telephone [facility] Cardiology Luiza Trujillo, CINTHIA [facility] [place] [address] Social History Tobacco Use Types Packs/Day Years Used Date Former Smoker Quit: 05/28/2013 Sex Assigned at Date Recorded Not on file as of this encounter Miscellaneous Notes * Telephone Encounter - Luiza Trujillo RN - 12/21/2017 8:31 AM CDT Bruce's daughter was wondering if she would have procedure that day. I explained that she would not. She was wondering if the appointment could be rescheduled. We discussed that she could reschedule, but it could be February or March for next appointment. She states she will do what she can to keep the OV. * Telephone Encounter - Luiza Trujillo RN - 12/21/2017 8:31 AM CDT ----- Message from Lona Gan LPN sent at 12/21/2017 8:27 AM CDT ----- Regarding: MPE- appt question VM from daughter Jaclyn on triage line. She has questions about appointment on the . Call her back at # [phone]. in this encounter Plan of Treatment Not on fileas of this encounter Visit Diagnoses Not on filein this encounter
--- OUTSIDE RECORDS SUMMARY | 2018-03-18 20:02 | XMS REPORT | Encounter Summary ---
Author Author [facility] Organization [facility] Address Unknown Phone Unavailable Care Team Providers Care Police Crime Scene Technician Name Role Phone Rubina Darling Domenica DO Unavailable Unavailable Herman Castrejon PHARMD Unavailable Unavailable Didi Louie APRN PCP Encounter Details Date Type Department Care Team Description 01/07/2018 Prep for [facility] Pranav Ruiz MD SVT (supraventricular [facility] [place] [facility] tachycardia) (HCC) fl [address] (Primary Dx) [address] [place] [address] [place] [address] [phone] Social History Tobacco Use Types Packs/Day Years [...]
--- OUTSIDE RECORDS SUMMARY | 2018-03-18 20:03 | XMS REPORT ---
Author Author DAPHNE YUSUF Organization [facility] Address [address] [place] [address] Care Team Providers Care [employer] Coach Name Role Phone DAPHNE YUSUF Unavailable PROBLEMS Type Condition ICD9-CM Code ZSG99-ET Code Onset Dates Condition Status SNOMED Code Problem Hx of Clostridium difficile infection Z86.19 Active 957195546 Problem History of arthroplasty of right knee Z96.651 Active 240914275 Problem Dysphagia, unspecified dysphagia R13.10 Active 99112633 Problem Chronic pain syndrome G89.4 Active 870869968 Problem 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 380295826 Problem Anxiety F41.9 Active 92260200 Problem Leg pain, left M79.605 Active 205760495 Problem Depression, unspecified depression type F32.9 Active 27809873 Problem Iron deficiency anemia, unspecified iron deficiency anemia type D50.9 Active 43684339 Problem Anemia, unspecified type D64.9 Active 190111550 Problem Seasonal allergic rhinitis due to pollen J30.1 Active 66812324 Problem Insomnia, unspecified G47.00 Active 177241592 Problem 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 774712315 Problem History of cerebrovascular accident with current residual effects I69.90 Active 534137967 Problem Peripheral vascular disease, unspecified I73.9 Active 589797693 Problem Rheumatoid arthritis, involving unspecified site, unspecified rheumatoid factor presence M06.9 Active 84260519 Problem Other chronic pain G89.29 Active 26452405 Problem Primary insomnia F51.01 Active 3311489 Problem Chronic obstructive pulmon disease w acute lower resp infct J44.0 Active 952081692 Problem Atrial fibrillation I48.91 Active 04510441 Problem Dysthymia F34.1 Active 90362716 Problem Osteoarthritis of foot M19.079 Active 225905943 Problem Rheumatoid arthritis M06.9 Active 49358861 Problem Tobacco abuse, 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 308316496 Problem Edema R60.9 Active 527335436 Problem COPD (chronic obstructive pulmonary disease) J44.9 Active 07965095 Problem Hypertension I10 Active 95196959 ALLERGIES No Information ENCOUNTERS Encounter Location Date Diagnosis [facility] [id number] [place] [address] 83566- 8543 Mar, [facility] [id number] [place] [address] 94043- 8825 Feb, Chronic pain syndrome G89.4 [facility] [id number] [place] [address] 58961- 3237 Feb, Chronic pain syndrome G89.4 [facility] [id number] [place] [address] 13582- 1652 Jan, Chronic pain syndrome G89.4 [facility] [id number] [place] [address] 68459- 2402 Jan, [facility] [id number] [place] [address] 21682- 8557 Dec, Chronic pain syndrome G89.4 [facility] [id number] [place] [address] 36148- 6388 November, Chronic pain syndrome G89.4 [facility] [id number] [place] [address] 75755- 1574 November, [facility] [id number] [place] [address] 44138- 0310 Oct, Chronic pain syndrome G89.4 [facility] [id number] [place] [address] 83437- 9517 Oct, [facility] [id number] [place] [address] 41676- 0834 Oct, Chronic pain syndrome G89.4 [facility] [id number] [place] [address] 28317- 7304 Oct, [facility] [id number] [place] [address] 61788- 0182 Oct, [facility] [id number] [place] [address] 49484- 1259 Sep, Left upper quadrant pain R10.12 ; Chronic pain syndrome G89.4 ; Left lower quadrant pain R10.32 ; Other chronic pain G89.29 ; Sacrococcygeal disorders, not elsewhere classified M53.3 and Seasonal allergic rhinitis due to pollen J30.1 [facility] [id number] [place] [address] 71576- 6683 Sep, Chronic pain syndrome G89.4 [facility] [id number] [place] [address] 27071- 0696 Sep, [facility] [id number] [place] [address] 12228- 3766 Aug, Chronic pain syndrome G89.4 [facility] [id number] [place] [address] 53896- 4240 Aug, [facility] [id number] [place] [address] 10965- 9292 Aug, Insomnia, unspecified G47.00 [facility] [id number] [place] [address] 34425- 5568 Jul, [facility] [id number] [place] [address] 18854- 5361 Jul, [facility] [id number] [place] [address] 33064- 7048 Jul, Chronic pain syndrome G89.4 [facility] [id number] [place] [address] 35647- 9149 Jun, Chronic pain syndrome G89.4 [facility] [id number] [place] [address] 438863- 1902 Jun, Chronic pain syndrome G89.4 [facility] [id number] [place] [address] 96954- 5234 May, [facility] [id number] [place] [address] 18239- 8628 May, Shortness of breath R06.02 ; Peripheral vascular disease, unspecified I73.9 ; Pain in right knee M25.561 ; Other chronic pain G89.29 ; Chest wall pain R07.89 ; Chronic pain syndrome G89.4 ; Primary insomnia F51.01 and Ear pain, left H92.02 [facility] [address] 86303- 0946 May, Anxiety F41.9 [facility] [address] 86910- 3261 Apr, Pneumonia due to infectious organism, unspecified laterality , unspecified part of lung J18.9 ; Hypoxia R09.02 ; Bradycardia R00.1 ; History of Clostridium difficile Z87.19 and Primary insomnia F51.01 [facility] [id number] [place] [address] 89755- 0510 Apr, Anxiety F41.9 [facility] [address] 72870- 3688 Apr, [facility] [id number] [place] [address] 43171- 6120 Mar, Anxiety F41.9 [facility] [id number] [place] [address] 12127- 6992 Feb, [facility] [id number] [place] [address] 50029- 1422 Feb, [facility] [id number] [place] [address] 65257- 7031 Feb, Abnormal finding on urinalysis R82.90 [facility] [id number] [place] [address] 82279- 6570 Feb, [facility] [id number] [place] [address] 96496- 4186 Feb, Shortness of breath R06.02 ; Tachycardia R00.0 ; Cough R05 ; Ill feeling R68.89 and Abnormal finding on urinalysis R82.90 [facility] [id number] [place] [address] 62369- 2559 Feb, Anxiety F41.9 [facility] [id number] [place] [address] 87493 -0945 Feb, Sore throat J02.9 and Acute diffuse otitis externa of left ear H60.312 [facility] [id number] [place] [address] 77159- 7850 Jan, [facility] [address] 70866- 3183 Jan, [facility] [address] [id number] Jan, [facility] [address] 40868- 6266 Jan, Depression, unspecified depression type F32.9 ; Chronic bronchitis, unspecified chronic bronchitis type J42 ; Chronic pain syndrome G89.4 and Anxiety F41.9 [facility] [id number] [place] [address] 36033- 9280 Jan, [facility] [id number] [place] [address] 46329- 8298 Jan, [facility] [id number] [place] [address] 20782- 9235 Jan, [facility] [id number] [place] [address] [id number] Jan, Chronic pain syndrome G89.4 [facility] [address] [place] [id number] Dec, History of right knee surgery Z98.890 [facility] [id number] [place] [address] 47129- 6001 Dec, [facility] [address] 52989- 9795 Dec, Chronic pain syndrome G89.4 [facility] [address] [address]- 5363 November, Anxiety F41.9 [facility] [id number] [place] [address] 34434 -6432 16 Nov, 2016 Acute cystitis without hematuria N30.00 [facility] [id number] [place] [address] 16901 -1377 November, Fever, unspecified fever cause R50.9 and Acute cystitis without hematuria N30.00 [facility] [id number] [place] [address] 73950- 2788 November, Chronic pain syndrome G89.4 [facility] [id number] [place] [address] 63477- 2737 Oct, Anxiety F41.9 [facility] [id number] [place] [address] 48575- 9956 Oct, Chronic pain syndrome G89.4 [facility] [id number] [place] [address] 67464- 8989 Oct, Chronic pain syndrome G89.4 [facility] [id number] [place] [address] 71383- 1061 Oct, [facility] [id number] [place] [address] 79791- 9743 Oct, Chronic pain syndrome G89.4 ; Pain in right knee M25.561 ; History of Clostridium difficile Z87.19 ; Iron deficiency anemia, unspecified iron deficiency anemia type D50.9 ; Peripheral vascular disease, unspecified I73.9 and Atrial fibrillation I48.91 [facility] [id number] [place] [address] 56132- 5857 Oct, [facility] [id number] [place] [address] 69257- 4731 Oct, Chronic pain syndrome G89.4 [facility] [id number] [address]- 9545 Sep, [facility] [id number] [place] [address] 87115- 9949 Sep, Depression, unspecified depression type F32.9 ; Chronic bronchitis, unspecified chronic bronchitis type J42 ; Chronic pain syndrome G89.4 and Anxiety F41.9 [facility] [address] [place] [id number] Sep, History of Clostridium difficile infection Z86.19 and History of stroke Z86.73 [facility] [id number] [place] [address] [id number] Sep, Anxiety F41.9 [facility] [id number] [place] [address] 17092- 2128 Sep, Chronic pain syndrome G89.4 [facility] [id number] [place] [address] 82640- 3661 Sep, [facility] [id number] [place] [address] [id number] Sep, [facility] [id number] [place] [address] 84617- 6928 Aug, Anxiety F41.9 [facility] [id number] [place] [address] 31805- 6962 Aug, Anxiety F41.9 [facility] [id number] [place] [address] 90704- 1058 16 Aug, 2016 [facility] [id number] [place] [address] 29724- 6727 14 Aug, 2016 Acute knee pain, unspecified laterality M25.569 [facility] [id number] [place] [address] 14028- 1966 13 Aug, 2016 [facility] [id number] [place] [address] 54819- 5840 09 Aug, 2016 Chronic pain syndrome G89.4 [facility] [id number] [address]- 1701 Aug, [facility] [id number] [place] [address] 33635- 3174 Aug, [facility] [id number] [place] [address] 38785- 4114 Jul, [facility] [id number] [place] [address] 01638- 2288 Jul, Anxiety F41.9 [facility] [id number] [place] [address] 06650- 1132 Jul, Clostridium difficile diarrhea A04.7 [facility] [address] [place] [id number] Jul, Clostridium difficile diarrhea A04.7 ; Chronic pain syndrome G89.4 ; Chronic obstructive pulmon disease w acute lower resp infct J44.0 and Pain in right knee M25.561 [facility] [id number] [place] [address] [id number] Jul, [facility] [id number] [place] [address] 63022 -6565 Jul, Anxiety F41.9 and Chronic pain syndrome G89.4 [facility] [id number] [place] [address] 53043- 6159 Jun, Anxiety F41.9 [facility] [id number] [place] [address] 43767- 2427 Jun, Rheumatoid arthritis 714.0 [facility] [id number] [place] [address] 37504- 0413 Jun, Chronic pain syndrome G89.4 [facility] [id number] [place] [address] 98950- 4361 Jun, [facility] [id number] [place] [address] 94424- 5781 Jun, [facility] [id number] [address]- 9537 Jun, History of pneumonia Z87.01 and History of Clostridium difficile Z87.19 [facility] [id number] [place] [address] 05875- 5910 Jun, [facility] [address] [address]- 9760 May, [facility] [id number] [place] [address] 36945- 0449 May, Anxiety F41.9 [facility] [id number] [place] [address] 04232- 7226 May, Chronic pain syndrome G89.4 [facility] [id number] [place] [address] 30161- 0323 May, Chronic bronchitis, unspecified chronic bronchitis type J42 [facility] [id number] [place] [address] 37835- 0561 May, [facility] [id number] [place] [address] 92658- 1771 May, C. difficile diarrhea A04.7 ; Peripheral edema R60.9 ; COPD (chronic obstructive pulmonary disease) J44.9 ; Rheumatoid arthritis, involving unspecified site, unspecified rheumatoid factor presence M06.9 ; Pain in right knee M25.561 ; Pain in left knee M25.562 and Other chronic pain G89.29 [facility] [address] [address]- 8166 May, [facility] [address] [address]- 6476 May, [facility] [id number] [place] [address] 26037- 3037 May, Anxiety F41.9 [facility] [address] [address]- 8427 Apr, [facility] [id number] [address]- 4097 Apr, Chronic pain syndrome G89.4 [facility] [address] [address]- 5494 Apr, Leg pain, left M79.605 [facility] [id number] [address]- 4855 14 Apr, 2016 [facility] [id number] [place] [address] 89533- 6658 Apr, [facility] [id number] [address]- 1399 Apr, [facility] [id number] [place] [address] 82418- 8373 28 Mar, 2016 Chronic pain syndrome G89.4 [facility] [address] [address]- 6762 Mar, Acute frontal sinusitis, recurrence not specified J01.10 [facility] [address] [address]- 9058 20 Mar, 2016 Iron deficiency anemia, unspecified iron deficiency anemia type D50.9 ; Rheumatoid arthritis with positive rheumatoid factor, involving unspecified site M05.9 and Depression, unspecified depression type F32.9 [facility] [address] [address]- 1157 13 Mar, 2016 Iron deficiency anemia, unspecified iron deficiency anemia type D50.9 ; Depression, unspecified depression type F32.9 and Rheumatoid arthritis with positive rheumatoid factor, involving unspecified site M05.9 [facility] [address] [address]- 0522 Mar, [facility] [id number] [address]- 9886 Mar, [facility] [address] [address]- 4359 Feb, Chronic pain syndrome G89.4 [facility] [id number] [place] [address] 25604- 3223 Feb, 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 ; Status post CVA Z86.73 ; Hemiplegia G81.90 and Anemia, unspecified type D64.9 [facility] [id number] [place] [address] 88466- 0012 Feb, [facility] [id number] [place] [address] 36252- 8173 Feb, Anemia, unspecified type D64.9 [facility] [id number] [place] [address] 80751- 8640 Feb, [facility] [id number] [place] [address] 39917- 9500 Feb, Iron deficiency anemia, unspecified iron deficiency anemia type D50.9 [facility] [id number] [place] [address] 07395- 9419 Feb, [facility] [id number] [place] [address] 49638- 7941 Feb, Chronic bronchitis, unspecified chronic bronchitis type J42 [facility] [id number] [place] [address] 93282- 0632 Feb, Iron deficiency anemia, unspecified iron deficiency anemia type D50.9 [facility] [id number] [place] [address] 20445- 5705 Feb, Chronic pain syndrome G89.4 [facility] [id number] [place] [address] 01237- 2900 Feb, Anemia, unspecified type D64.9 and Hypoxia R09.02 [facility] [id number] [place] [address] 49835- 5068 Feb, Anemia, unspecified type D64.9 [facility] [id number] [place] [address] 46695- 7857 Jan, [facility] [id number] [address]- 6470 Jan, Anemia, unspecified type D64.9 [facility] [id number] [place] [address] 45785- 4226 Jan, [facility] [id number] [place] [address] 93001- 9151 Jan, Anemia, unspecified type D64.9 [facility] [id number] [place] [address] 07841- 7607 Jan, Anemia, unspecified type D64.9 [facility] [id number] [place] [address] 30463- 1043 Jan, [facility] [id number] [place] [address] 83648- 8355 Jan, Anemia, unspecified type D64.9 [facility] [id number] [place] [address] 38737- 7817 Jan, [facility] [id number] [place] [address] 73056- 8746 Jan, [facility] [id number] [place] [address] 20540- 6405 Jan, Chronic pain syndrome G89.4 [facility] [id number] [place] [address] 72610- 9789 Jan, Anemia, unspecified type D64.9 [facility] [id number] [place] [address] 09096- 8063 Jan, Dysthymia F34.1 ; Cervicalgia M54.2 ; Fatigue, unspecified type R53.83 and Depression, unspecified depression type F32.9 [facility] [address] [address]- 0601 Dec, [facility] [id number] [place] [address] 45275- 9938 Dec, Anxiety F41.9 [facility] [id number] [place] [address] 78043- 98[address] Dec, Chronic pain syndrome G89.4 [facility] [id number] [place] [address]- 8448 November, [facility] [id number] [place] [address]- [address] November, Edema R60.9 and Dizziness R42 [facility] [address] [address] November, [facility] [address] [address] November, [facility] [id number] [place] [address] 7[address]82- [address]95 November, COPD (chronic obstructive pulmonary disease) J44.9 ; Increased tracheal secretions J39.8 and Edema R60.9 [facility] [id number] [place] [address] Oct, [facility] [id number] [place] [address] 28 Oct, 2015 Shortness of breath R06.02 and Edema R60.9 [facility] [id number] [place] [address] 76906- 7186 Oct, Chronic bronchitis, unspecified chronic bronchitis type J42 ; Peripheral vascular disease, unspecified I73.9 ; Rheumatoid arthritis M06.9 and Atrial fibrillation I48.91 [facility] [id number] [place] [address]- 3051 Oct, [facility] [address] [address]- [address]017 Oct, [facility] [id number] [place] [address] 59028- 6584 Oct, [facility] [id number] [place] [address]18- 1432 Oct, [facility] [id number] [address] Oct, COPD exacerbation J44.1 [facility] [id number] [place] [address]- 1417 Sep, [facility] [id number] [place] [address] 32096- 1841 Sep, [facility] [id number] [place] [address] 98613- 1104 Sep, [facility] [id number] [place] [address] 38068- 7811 Aug, [facility] [id number] [place] [address] 83404- 3474 Aug, 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 and PVD (peripheral vascular disease ) I73.9 [facility] [id number] [place] [address] 89[address]- 4146 Aug, Bronchitis J40 ; COPD (chronic obstructive pulmonary disease ) J44.9 and Dysthymia F34.1 [facility] [id number] [place] [address] [address]- [address]503 Aug, [facility] [id number] [place] [address] 44774- 2810 Jul, [facility] [id number] [place] [address] 13684- 4605 Jul, [facility] [id number] [place] [address] 47348- 2113 Jul, [facility] [id number] [place] [address] 35998- 4494 Jun, [facility] [id number] [place] [address] 77230- 8825 Jun, [facility] [id number] [place] [address] 38492- 6766 Jun, Peripheral vascular disease I73.9 [facility] [id number] [place] [address] 87106- 6902 Jun, [facility] [id number] [place] [address] 77378- 3823 Jun, [facility] [id number] [place] [address] 079723- 8165 Jun, Leg pain, left M79.605 ; Dysphagia, unspecified dysphagia R13.10 ; Insomnia, unspecified type G47.00 ; PVD (peripheral vascular disease) I73.9 and 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 [facility] [id number] [place] [address] 06362- 8833 May, [facility] [id number] [place] [address] 45684- 7097 May, [facility] [id number] [place] [address] 87268- 4105 May, [facility] [id number] [place] [address] 78977- 0043 May, [facility] [id number] [place] [address] 44631- 3142 May, [facility] [id number] [place] [address] 85421- 0741 Apr, [facility] [id number] [place] [address] 77865- 2139 Apr, [facility] [id number] [place] [address] 20027- 3025 Mar, [facility] [id number] [place] [address] 788232- 4543 Mar, [facility] [id number] [place] [address] 20166- 3310 Feb, [facility] [id number] [address]- 3024 Feb, Nicotine abuse 305.1 ; Arthralgia 719.40 and 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 [facility] [id number] [address]- 9129 Feb, [facility] [id number] [address]- 4442 Jan, [facility] [id number] [place] [address] 31744- 6719 Jan, [facility] [id number] [place] [address] 42343- 3624 Jan, [facility] [id number] [place] [address] 92387- 1611 Jan, [facility] [id number] [place] [address] 22447- 4328 Jan, 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 ; Rheumatoid arthritis 714.0 ; Hypertension 401.9 ; GERD (gastroesophageal reflux disease) 530.81 ; Nicotine addiction 305.1 and Leukocytosis 288.60 [facility] [id number] [address]- 1478 Jan, [facility] [id number] [address]- 1723 Jan, [facility] [id number] [address]- 5887 Jan, [facility] [id number] [address]- 4328 Jan, [facility] [id number] [address]- 1801 Jan, [facility] [id number] [address]- 0357 Dec, [facility] [id number] [address]- 8328 Dec, [facility] [id number] [address]- 1311 Dec, [facility] [id number] [place] [address] 628583- 3025 Dec, [facility] [id number] [place] [address] 36430- 3809 November, [facility] [id number] [place] [address] 43178- 5389 November, [facility] [id number] [place] [address] 24484- 9964 November, Shortness of breath 786.05 [facility] [id number] [place] [address] 71294- 0062 November, Rheumatoid arthritis 714.0 [facility] [id number] [place] [address] 94717- 2809 November, 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 [facility] [id number] [place] [address] 49789- 3812 November, Neuropathy 355.9 ; Insomnia 780.52 ; Dysthymia 300.4 ; Shortness of breath 786.05 ; Rheumatoid arthritis 714.0 and Nausea 787.02 [facility] [id number] [place] [address] 36349- 0060 November, [facility] [id number] [place] [address] 84340- 5261 November, [facility] [id number] [place] [address] 85168- 3631 Oct, [facility] [id number] [place] [address] 68999- 3067 Oct, [facility] [id number] [place] [address] 94607- 2085 Oct, [facility] [id number] [place] [address] 20332- 6247 Oct, [facility] [place] [facility] [address] [id number] [place] [address]- 5684 Sep, [facility] [place] [facility] [address] [id number] [place] [address]- 9507 Sep, [facility] [place] [facility] [address] [id number] [place] [address]- 0319 Sep, [facility] [place] [facility] [address] [id number] [place] [address]- 6121 Sep, [facility] [place] [facility] [address] [id number] [place] [address]- 2263 Sep, [facility] [place] [facility] [address] [id number] [place] [address]- 5313 Sep, [facility] [place] [facility] [address] [facility] [id number] [place] [address]- 2672 Sep, [facility] [place] [facility] [address] [id number] [place] [address]- 7789 Sep, [facility] [place] [facility] [address] [id number] [place] [address]- 9606 Aug, [facility] [place] [facility] [address] [facility] [id number] [place] [address]- 4254 Aug, [facility] [place] [facility] [address] [id number] [place] [address]- 8146 Aug, [facility] [place] [facility] [address] [id number] [address]- 7422 Aug, [facility] [place] [facility] [address] [id number] [place] [address]- 7238 Aug, [facility] [place] [facility] [address] [id number] [place] [address]- 0735 Aug, [facility] [place] [facility] [address] [facility] [id number] [place] [address]- 3698 Jul, [facility] [place] [facility] [address] [id number] [place] [address]- 8574 Jul, [facility] [address] [id number] [place] [address]- 8147 Jul, [facility] [place] [facility] [address] [id number] [place] [address]- 3890 Jul, [facility] [place] [facility] [address] [id number] [place] [address]- 6188 Jul, [facility] [place] [facility] [address] [id number] [place] [address]- 7236 Jul, [facility] [place] [facility] [address] [id number] [place] [address]- 7203 Jul, [facility] [place] [facility] [address] [id number] [place] [address]- 1957 Jul, [facility] [place] [facility] [address] [id number] [place] [address]- 0544 Jul, [facility] [place] [facility] [address] [id number] [place] [address]- 4892 Jul, [facility] [place] [facility] [address] [id number] [place] [address]- 5091 Jun, [facility] [place] [facility] [address] [id number] [place] [address]- 9947 Jun, [facility] [place] [facility] [address] [id number] [place] [address]- 4475 Jun, [facility] [place] [facility] [address] [id number] [place] [address]- 7417 Jun, [facility] [place] [facility] [address] [id number] [place] [address]- 6742 Jun, [facility] [place] [facility] [address] [id number] [place] [address]- 3988 Jun, [facility] [place] [facility] [address] [id number] [place] [address]- 9685 Jun, [facility] [place] [facility] [address] [id number] [place] [address]- 6332 Jun, [facility] [place] [facility] [address] [id number] [place] [address]- 5220 Jun, [facility] [place] [facility] [address] [id number] [place] 1849 Jun, [facility] [place] [facility] [address] [id number] [place] [address]- 0213 Jun, [facility] [place] [facility] [address] [id number] [place] [address]- 0595 Jun, [facility] [place] [facility] [address] [id number] [place] [address]- 6306 Jun, [facility] [place] [facility] [address] [id number] [place] [address]- 7233 Jun, [facility] [place] [facility] [address] [id number] [place] [address]- 8692 Jun, [facility] [place] [facility] [address] [id number] [place] [address]- 6590 Jun, [facility] [place] [facility] [address] [id number] [place] [address]- 9245 May, [facility] [place] [facility] [address] [id number] [place] [address]- 9884 May, [facility] [place] [facility] [address] [id number] [place] [address]- 5418 May, [facility] [place] [facility] [address] [id number] [place] [address]- 1386 May, [facility] [place] [facility] [address] [id number] [place] [address]- 4026 May, [facility] [place] [facility] [address] [id number] [place] [address]- 3038 May, [facility] [place] [facility] [address] [id number] [address]- 5406 May, [facility] [place] [facility] [address] [id number] [place] [address]- 8551 May, [facility] [place] [facility] [address] [id number] [place] 9273 May, [facility] [place] [facility] [address] [id number] [place] [address]- 0871 Apr, [facility] [place] [facility] [address] [id number] [place] [address]- 5147 Apr, [facility] [place] [facility] [address] [id number] [place] [address]- 7583 Apr, [facility] [place] [facility] [address] [id number] [place] [address]- 8894 Apr, [facility] [place] [facility] [address] [id number] [place] [address]- 0570 Apr, [facility] [place] [facility] [address] [id number] [place] [address]- 7754 Apr, [facility] [place] [facility] [address] [id number] [place] [address]- 3386 Apr, [facility] [place] [facility] [address] [id number] [place] [address]- 2235 Apr, [facility] [place] [facility] [address] [id number] [address]- 9080 Apr, [facility] [place] [facility] [address] [id number] [address]- 8816 Apr, [facility] [place] [facility] [address] [id number] [place] [address]- 0762 Apr, [facility] [place] [facility] [address] [id number] [address]- 5796 Apr, [facility] [place] [facility] [address] [id number] [place] [address]- 2131 Mar, [facility] [place] [facility] [address] [id number] [place] [address]- 9535 22 Mar, 2013 [facility] [place] [facility] [address] [id number] [place] [address]- 6286 Mar, 2013 [facility] [place] [facility] [address] [id number] [place] [address]- 2546 Mar, 2013 [facility] [place] [facility] [address] [id number] [place] [address]- 8336 Mar, 2013 [facility] [place] [facility] [address] [id number] [place] [address]- 0174 Mar, 2013 [facility] [place] [facility] [address] [id number] [place] [address]- 1089 Mar, 2013 [facility] [place] [facility] [address] [id number] [place] [address]- 2149 Mar, 2013 [facility] [place] [facility] [address] [id number] [place] [address]- 8203 Mar, 2013 [facility] [place] [facility] [address] [id number] [place] [address]- 8710 Mar, [facility] [place] [facility] [address] [id number] [place] [address]- 9497 Feb, [facility] [place] [facility] [address] [id number] [place] [address]- 4522 Feb, [facility] [place] [facility] [address] [id number] [place] [address]- 2545 Feb, [facility] [place] [facility] [address] [id number] [place] [address]- 2544 Feb, [facility] [place] [facility] [address] [id number] [place] [address]- 9959 Feb, [facility] [place] [facility] [address] [id number] [place] [address]- 9909 Feb, [facility] [place] [facility] [address] [id number] [place] [address]- 2615 Feb, [facility] [place] [facility] [address] [id number] [place] [address]- 0349 Feb, [facility] [place] [facility] [address] [id number] [place] [address]- 5692 Feb, [facility] [place] [facility] [address] [id number] [place] [address]- 9889 Feb, [facility] [place] [facility] [address] [id number] [place] [address]- 4430 Feb, [facility] [place] [facility] [address] [id number] [place] [address]- 1912 Feb, [facility] [place] [facility] [address] [id number] [place] [address]- 0278 Feb, [facility] [place] [facility] [address] [id number] [place] [address]- 4209 Feb, [facility] [place] [facility] [address] [id number] [place] [address]- 7538 Feb, [facility] [place] [facility] [address] [id number] [place] [address]- 7461 Feb, [facility] [place] [facility] [address] [id number] [place] [address]- 8444 Jan, [facility] [place] [facility] [address] [id number] [place] [address]- 3502 Jan, [facility] [place] [facility] [address] [id number] [place] [address]- 1774 Jan, [facility] [place] [facility] [address] [id number] [place] [address]- 4411 Jan, [facility] [place] [facility] [address] [id number] [place] [address]- 1784 Jan, [facility] [place] [facility] [address] [id number] [place] [address]- 8713 Jan, [facility] [place] [facility] [address] [id number] [place] [address]- 4729 Dec, [facility] [place] [facility] [address] [id number] [place] [address]- 6552 Dec, [facility] [place] [facility] [address] [id number] [place] [address]- 0841 Dec, [facility] [place] [facility] [address] [id number] [place] [address]- 2261 Dec, [facility] [place] [facility] [address] [id number] [place] [address]- 5509 Dec, [facility] [place] [facility] [address] [id number] [place] [address]- 7581 Dec, [facility] [place] [facility] [address] [id number] [place] [address]- 5097 Dec, [facility] [place] [facility] [address] [id number] [place] [address]- 1987 Dec, [facility] [place] [facility] [address] [id number] [place] [address]- 7842 November, [facility] [place] [facility] [address] [id number] [place] [address]- 3073 November, [facility] [place] [facility] [address] [id number] [place] [address]- 3853 November, [facility] [place] [facility] [address] [id number] [place] [address]- 7837 November, [facility] [place] [facility] [address] [id number] [place] [address]- 3087 November, [facility] [place] [facility] [address] [id number] [place] [address]- 2248 November, [facility] [place] [facility] [address] [id number] [place] [address]- 4722 Oct, [facility] [place] [facility] [address] [id number] [place] [address]- 1020 Oct, [facility] [place] [facility] [address] [id number] [place] [address]- 4882 Oct, [facility] [place] [facility] [address] [id number] [place] [address]- 7300 Oct, [facility] [place] [facility] [address] [id number] [place] [address]- 6585 Sep, [facility] [place] [facility] [address] [id number] [place] [address]- 5941 Sep, [facility] [place] [facility] [address] [id number] [place] [address]- 1894 Sep, [facility] [place] [facility] [address] [id number] [place] [address]- 4505 Sep, [facility] [place] [facility] [address] [facility] [id number] [place] [address]- 4627 Sep, [facility] [place] [facility] [address] [id number] [place] [address]- 2025 Sep, [facility] [place] [facility] [address] [id number] [place] [address]- 1882 Aug, [facility] [place] [facility] [address] [facility] [id number] [place] [address]- 8157 Aug, [facility] [place] [facility] [address] [facility] [id number] [place] [address]- 2868 Aug, [facility] [place] [facility] [address] [id number] [place] [address]- 7569 Aug, [facility] [place] [facility] [address] [id number] [place] [address]- 5313 Aug, [facility] [place] [facility] [address] [id number] [place] [address]- 4801 Aug, [facility] [place] [facility] [address] [facility] [id number] [place] [address]- 0483 Jul, [facility] [place] [facility] [address] [id number] [address]- 2440 Jul, [facility] [address] [id number] [place] [address]- 4298 Jul, [facility] [place] [facility] [address] [id number] [place] [address]- 8894 Jul, [facility] [place] [facility] [address] [id number] [place] [address]- 5958 Jul, [facility] [place] [facility] [address] [id number] [place] [address]- 0501 Jul, [facility] [place] [facility] [address] [id number] [place] [address]- 2460 Jul, [facility] [place] [facility] [address] [id number] [place] [address]- 5593 Jul, [facility] [place] [facility] [address] [id number] [place] [address] Jul, [facility] [place] [facility] [address] [id number] [place] [address] Jul, [facility] [place] [facility] [address] [id number] [place] [address] Jul, [facility] [place] [facility] [address] [id number] [place] [address] Jul, [facility] [place] [facility] [address] [id number] [place] [address] Jul, [facility] [place] [facility] [address] [id number] [place] [address] Jul, [facility] [place] [facility] [address] [id number] [place] [address] Jul, [facility] [place] [facility] [address] [id number] [place] [address] Jun, [facility] [place] [facility] [address] [id number] [place] [address] Jun, [facility] [place] [facility] [address] [id number] [place] [address] Jun, [facility] [address] [id number] [place] [address] Jun, [facility] [place] [facility] [address] [id number] [place] [address] May, [facility] [place] [facility] [address] [id number] [place] [address] May, [facility] [address] [id number] [id number] May, [facility] [place] [facility] [address] [id number] [place] [address] May, [facility] [place] [facility] [address] [id number] [place] [address] May, [facility] [place] [facility] [address] [facility] [id number] [address] May, [facility] [place] [facility] [address] [id number] [address] May, [facility] [place] [facility] [address] [facility] [id number] [address] May, [facility] [place] [facility] [address] [id number] [address] May, [facility] [address] [id number] [place] [id number] May, [facility] [place] [facility] [address] [id number] [address] May, [facility] [address] [id number] [place] [id number] May, [facility] [place] [facility] [address] [id number] [place] [id number] May, 2013 [facility] [address] [id number] SPRINGS[place] [id number] May, [facility] [place] [facility] [address] [facility] [id number] [place] [address] May, IMMUNIZATIONS No Known Immunizations SOCIAL HISTORY Never Assessed REASON FOR VISIT Controlled Med Refill 01/26/18 PLAN OF CARE VITAL SIGNS MEDICATIONS Medication Instructions Dosage Frequency Start Date End Date Duration Status Oxycodone-Acetaminophen 5-325 MG Orally 2 times a day 1 tablet 12h 14 Jan, 2018 28 days Active RESULTS No Results PROCEDURES No Known procedures INSTRUCTIONS MEDICATIONS ADMINISTERED No Known Medications MEDICAL (GENERAL) HISTORY Type Description Date Medical History Arthritis Medical History peripheral vascular disease Medical History tachycardia (PSVT) Electrophysiology studies done [facility] 01/2018 Medical History chronic obstructive pulmonary disease (COPD) PFT 11/2014 Mod to severe restrictive disease Medical History pancreatitis Medical History hyperlipidemia Medical History rheumatoid arthritis Medical History cancer of bridge of nose at [place] [facility] Medical History stress test 12/22/2013 [facility] EF 52% (Ajit)05/2016 WNL Medical History CVA 12/2014 Echo - [facility] Carotids show complete stenosis on left and [...] 2013 Surgical History capsule endoscopy Dr Pittman WNL 03/2016 Surgical History Rt TKA 12/24/16 Hospitalization History amputation transmetatarsal Hospitalization History hip replacement Hospitalization History CVA 12/2014 Hospitalization History Exacerbation COPD 10/23/15 Hospitalization History Diarrhea, leukocytosis--[facility] 01/08/16 Hospitalization History pseudomemranous colitis, sepsis--[facility] 04/21/2016 Hospitalization History C Diff--[facility] 05/10/2016 Hospitalization History sepsis, pneumonia, diarrhea--[facility] 06/11/16 Hospitalization History recurrent cdiff, pneumonia-[facility] 07/22/16 Hospitalization History sepsis,pneumonia- [facility]
--- OUTSIDE RECORDS SUMMARY | 2018-03-18 20:04 | XMS REPORT ---
Author Author DAPHNE YUSUF Organization [facility] Address [address] [place] [address] Care Team Providers Care Crochet Beader Name Role Phone DAPHNE YUSUF Unavailable PROBLEMS Type Condition ICD9-CM Code THX82-MD Code Onset Dates Condition Status SNOMED Code Problem Hx of Clostridium difficile infection Z86.19 Active 924393598 Problem History of arthroplasty of right knee Z96.651 Active 020340371 Problem Dysphagia, unspecified dysphagia R13.10 Active 01352412 Problem Chronic pain syndrome G89.4 Active 763538099 Problem 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 646976253 Problem Anxiety F41.9 Active 17492572 Problem Leg pain, left M79.605 Active 417853768 Problem Depression, unspecified depression type F32.9 Active 34956217 Problem Iron deficiency anemia, unspecified iron deficiency anemia type D50.9 Active 01273612 Problem Anemia, unspecified type D64.9 Active 242854605 Problem Seasonal allergic rhinitis due to pollen J30.1 Active 83820708 Problem Insomnia, unspecified G47.00 Active 313775755 Problem 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 067015611 Problem History of cerebrovascular accident with current residual effects I69.90 Active 811180409 Problem Peripheral vascular disease, unspecified I73.9 Active 352520147 Problem Rheumatoid arthritis, involving unspecified site, unspecified rheumatoid factor presence M06.9 Active 97726781 Problem Other chronic pain G89.29 Active 49096050 Problem Primary insomnia F51.01 Active 4673484 Problem Chronic obstructive pulmon disease w acute lower resp infct J44.0 Active 058663641 Problem Atrial fibrillation I48.91 Active 01330748 Problem Dysthymia F34.1 Active 46537867 Problem Osteoarthritis of foot M19.079 Active 462889846 Problem Rheumatoid arthritis M06.9 Active 34301223 Problem Tobacco abuse, 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 209531369 Problem Edema R60.9 Active 203168098 Problem COPD (chronic obstructive pulmonary disease) J44.9 Active 33068951 Problem Hypertension I10 Active 51085504 ALLERGIES No Information ENCOUNTERS Encounter Location Date Diagnosis [facility] [id number] [place] [address] 57172- 4067 Mar, [facility] [id number] [place] [address] 92001- 3413 Feb, Chronic pain syndrome G89.4 [facility] [id number] [place] [address] 20153- 6559 Feb, Chronic pain syndrome G89.4 [facility] [id number] [place] [address] 73918- 3963 Jan, Chronic pain syndrome G89.4 [facility] [id number] [place] [address] 07139- 5245 Jan, [facility] [id number] [place] [address] 69475- 8134 Dec, Chronic pain syndrome G89.4 [facility] [id number] [place] [address] 45165- 6639 November, Chronic pain syndrome G89.4 [facility] [id number] [place] [address] 04187- 9453 November, [facility] [id number] [place] [address] 29495- 0894 Oct, Chronic pain syndrome G89.4 [facility] [id number] [place] [address] 89635- 5281 Oct, [facility] [id number] [place] [address] 09484- 9778 Oct, Chronic pain syndrome G89.4 [facility] [id number] [place] [address] 21970- 9032 Oct, [facility] [id number] [place] [address] 36622- 9446 Oct, [facility] [address] [place] [address] 96687- 3007 Sep, Left upper quadrant pain R10.12 ; Chronic pain syndrome G89.4 ; Left lower quadrant pain R10.32 ; Other chronic pain G89.29 ; Sacrococcygeal disorders, not elsewhere classified M53.3 and Seasonal allergic rhinitis due to pollen J30.1 [facility] [id number] [place] [address] 23556- 1854 Sep, Chronic pain syndrome G89.4 [facility] [id number] [place] [address] 15734- 3473 Sep, [facility] [id number] [place] [address] 49640- 7236 Aug, Chronic pain syndrome G89.4 [facility] [id number] [place] [address] 78889- 1510 Aug, [facility] [id number] [place] [address] 78956- 4309 Aug, Insomnia, unspecified G47.00 [facility] [id number] [place] [address] 79694- 0860 Jul, [facility] [id number] [place] [address] 45757- 5076 Jul, [facility] [id number] [place] [address] 70492- 2564 Jul, Chronic pain syndrome G89.4 [facility] [id number] [place] [address] 04623- 2143 Jun, Chronic pain syndrome G89.4 [facility] [id number] [place] [address] 029710- 7310 Jun, Chronic pain syndrome G89.4 [facility] [id number] [place] [address] 66843- 6167 May, [facility] [id number] [place] [address] 75331- 9981 May, Shortness of breath R06.02 ; Peripheral vascular disease, unspecified I73.9 ; Pain in right knee M25.561 ; Other chronic pain G89.29 ; Chest wall pain R07.89 ; Chronic pain syndrome G89.4 ; Primary insomnia F51.01 and Ear pain, left H92.02 [facility] [address] 53081- 1516 May, Anxiety F41.9 [facility] [address] 63071- 7420 Apr, Pneumonia due to infectious organism, unspecified laterality , unspecified part of lung J18.9 ; Hypoxia R09.02 ; Bradycardia R00.1 ; History of Clostridium difficile Z87.19 and Primary insomnia F51.01 [facility] [id number] [place] [address] 13535- 5126 Apr, Anxiety F41.9 [facility] [address] 22596- 9647 Apr, [facility] [id number] [place] [address] 10908- 3290 Mar, Anxiety F41.9 [facility] [id number] [place] [address] 93147- 8887 Feb, [facility] [id number] [place] [address] 91715- 7826 Feb, [facility] [id number] [place] [address] 81820- 3724 Feb, Abnormal finding on urinalysis R82.90 [facility] [id number] [place] [address] 64955- 1087 Feb, [facility] [id number] [place] [address] 43249- 6394 Feb, Shortness of breath R06.02 ; Tachycardia R00.0 ; Cough R05 ; Ill feeling R68.89 and Abnormal finding on urinalysis R82.90 [facility] [id number] [place] [address] 02810- 8491 Feb, Anxiety F41.9 [facility] [id number] [place] [address] 12830 -3514 Feb, Sore throat J02.9 and Acute diffuse otitis externa of left ear H60.312 [facility] [id number] [place] [address] 80307- 6023 Jan, [facility] [address] 52964- 2070 Jan, [facility] [address] [id number] Jan, [facility] [address] 96836- 3666 Jan, Depression, unspecified depression type F32.9 ; Chronic bronchitis, unspecified chronic bronchitis type J42 ; Chronic pain syndrome G89.4 and Anxiety F41.9 [facility] [id number] [place] [address] 47720- 4464 Jan, [facility] [id number] [place] [address] 55649- 4995 Jan, [facility] [id number] [place] [address] 07080- 2488 Jan, [facility] [id number] [place] [address] [id number] Jan, Chronic pain syndrome G89.4 [facility] [address] [id number] Dec, History of right knee surgery Z98.890 [facility] [id number] [place] [address] 75978- 7982 Dec, [facility] [address] 13303- 0996 Dec, Chronic pain syndrome G89.4 [facility] [address] [address]- 5016 November, Anxiety F41.9 [facility] [id number] [place] [address] 20826 -9909 16 Nov, 2016 Acute cystitis without hematuria N30.00 [facility] [id number] [place] [address] 36242 -5053 November, Fever, unspecified fever cause R50.9 and Acute cystitis without hematuria N30.00 [facility] [id number] [place] [address] 39005- 7282 November, Chronic pain syndrome G89.4 [facility] [id number] [place] [address] 65774- 4033 Oct, Anxiety F41.9 [facility] [id number] [place] [address] 99242- 4666 Oct, Chronic pain syndrome G89.4 [facility] [address] [place] [address] 54314- 7453 Oct, Chronic pain syndrome G89.4 [facility] [id number] [place] [address] 13495- 0395 Oct, [facility] [address] [place] [address] 71601- 3457 Oct, Chronic pain syndrome G89.4 ; Pain in right knee M25.561 ; History of Clostridium difficile Z87.19 ; Iron deficiency anemia, unspecified iron deficiency anemia type D50.9 ; Peripheral vascular disease, unspecified I73.9 and Atrial fibrillation I48.91 [facility] [address] [place] [address] 09691- 4853 Oct, [facility] [address] [place] [address] 76592- 2852 Oct, Chronic pain syndrome G89.4 [facility] [address] [address] 2798 Sep, [facility] [id number] [place] [address] 59102- 1448 Sep, Depression, unspecified depression type F32.9 ; Chronic bronchitis, unspecified chronic bronchitis type J42 ; Chronic pain syndrome G89.4 and Anxiety F41.9 [facility] [address] [id number] Sep, History of Clostridium difficile infection Z86.19 and History of stroke Z86.73 [facility] [id number] [place] [address] [id number] Sep, Anxiety F41.9 [facility] [id number] [place] [address] 92256- 5658 Sep, Chronic pain syndrome G89.4 [facility] [id number] [place] [address] 57205- 5825 Sep, [facility] [id number] [place] [address] [id number] Sep, [facility] [id number] [place] [address] 39590- 8217 Aug, Anxiety F41.9 [facility] [address] [place] [address] 81642- 6547 Aug, Anxiety F41.9 [facility] [address] [place] [address] 45935- 8531 16 Aug, 2016 [facility] [address] [place] [address] 38302- 2840 14 Aug, 2016 Acute knee pain, unspecified laterality M25.569 [facility] [address] [place] [address] 58221- 7026 13 Aug, 2016 [facility] [id number] [place] [address] 52080- 0715 09 Aug, 2016 Chronic pain syndrome G89.4 [facility] [address] [address]- 4191 Aug, [facility] [address] [place] [address] 95336- 7373 Aug, [facility] [id number] [place] [address] 13292- 1759 Jul, [facility] [address] [place] [address] 74602- 1173 Jul, Anxiety F41.9 [facility] [address] [place] [address] 99604- 6629 Jul, Clostridium difficile diarrhea A04.7 [facility] [address] [id number] Jul, Clostridium difficile diarrhea A04.7 ; Chronic pain syndrome G89.4 ; Chronic obstructive pulmon disease w acute lower resp infct J44.0 and Pain in right knee M25.561 [facility] [id number] [place] [address] [id number] Jul, [facility] [id number] [place] [address] 97473 -5837 Jul, Anxiety F41.9 and Chronic pain syndrome G89.4 [facility] [address] [place] [address] 36692- 2566 Jun, Anxiety F41.9 [facility] [id number] [place] [address] 22635- 6502 Jun, Rheumatoid arthritis 714.0 [facility] [address] [place] [address] 62102- 9023 Jun, Chronic pain syndrome G89.4 [facility] [id number] [place] [address] 98215- 7538 Jun, [facility] [address] [place] [address] 57968- 2896 Jun, [facility] [id number] [address]- 4507 Jun, History of pneumonia Z87.01 and History of Clostridium difficile Z87.19 [facility] [address] [place] [address] 64401- 0973 Jun, [facility] [address], [place] [address]- 3669 May, [facility] [id number] [place] [address] 64164- 2817 May, Anxiety F41.9 [facility] [id number] [place] [address] 52236- 9470 May, Chronic pain syndrome G89.4 [facility] [id number] [place] [address] 49332- 5609 May, Chronic bronchitis, unspecified chronic bronchitis type J42 [facility] [id number] [place] [address] 83064- 3667 May, [facility] [address] [place] [address] 40695- 3296 May, C. difficile diarrhea A04.7 ; Peripheral edema R60.9 ; COPD (chronic obstructive pulmonary disease) J44.9 ; Rheumatoid arthritis, involving unspecified site, unspecified rheumatoid factor presence M06.9 ; Pain in right knee M25.561 ; Pain in left knee M25.562 and Other chronic pain G89.29 [facility] [address], [place] [address]- 0698 May, [facility] [address] [address]- 1589 May, [facility] [id number] [place] [address] 62265- 4018 May, Anxiety F41.9 [facility] [address], [place] [address]- 6287 Apr, [facility] [address] [address]- 8719 Apr, Chronic pain syndrome G89.4 [facility] [address], [place] [address]- 7504 Apr, Leg pain, left M79.605 [facility] [address] [address]- 0685 14 Apr, 2016 [facility] [id number] [place] [address] 39121- 4501 Apr, [facility] [address] [address]- 9022 Apr, [facility] [id number] [place] [address] 03014- 5827 28 Mar, 2016 Chronic pain syndrome G89.4 [facility] [address], [place] [address]- 2555 Mar, Acute frontal sinusitis, recurrence not specified J01.10 [facility] [address] [address]- 2365 20 Mar, 2016 Iron deficiency anemia, unspecified iron deficiency anemia type D50.9 ; Rheumatoid arthritis with positive rheumatoid factor, involving unspecified site M05.9 and Depression, unspecified depression type F32.9 [facility] [address], [place] [address]- 2091 13 Mar, 2016 Iron deficiency anemia, unspecified iron deficiency anemia type D50.9 ; Depression, unspecified depression type F32.9 and Rheumatoid arthritis with positive rheumatoid factor, involving unspecified site M05.9 [facility] [address], [place] [address]- 6529 Mar, [facility] [address], [place] [address]- 3691 Mar, [facility] [address], [place] [address]- 8687 Feb, Chronic pain syndrome G89.4 [facility] [id number] [place] [address] 47122- 9508 Feb, 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 ; Status post CVA Z86.73 ; Hemiplegia G81.90 and Anemia, unspecified type D64.9 [facility] [id number] [place] [address] 62424- 0405 Feb, [facility] [id number] [place] [address] 81325- 3971 Feb, Anemia, unspecified type D64.9 [facility] [id number] [place] [address] 66526- 9034 Feb, [facility] [id number] [place] [address] 16069- 9138 Feb, Iron deficiency anemia, unspecified iron deficiency anemia type D50.9 [facility] [id number] [place] [address] 98172- 3094 Feb, [facility] [id number] [place] [address] 48022- 1811 Feb, Chronic bronchitis, unspecified chronic bronchitis type J42 [facility] [id number] [place] [address] 86172- 6606 Feb, Iron deficiency anemia, unspecified iron deficiency anemia type D50.9 [facility] [id number] [place] [address] 24561- 2371 Feb, Chronic pain syndrome G89.4 [facility] [id number] [place] [address] 61715- 1515 Feb, Anemia, unspecified type D64.9 and Hypoxia R09.02 [facility] [id number] [place] [address] 51982- 3083 Feb, Anemia, unspecified type D64.9 [facility] [id number] [place] [address] 58029- 3582 Jan, [facility] [address], [place] [address]- 8755 Jan, Anemia, unspecified type D64.9 [facility] [id number] [place] [address] 70783- 2476 Jan, [facility] [id number] [place] [address] 91780- 0114 Jan, Anemia, unspecified type D64.9 [facility] [id number] [place] [address] 15089- 1648 Jan, Anemia, unspecified type D64.9 [facility] [id number] [place] [address] 09910- 3474 Jan, [facility] [id number] [place] [address] 41143- 4856 Jan, Anemia, unspecified type D64.9 [facility] [id number] [place] [address] 33567- 6932 Jan, [facility] [id number] [place] [address] 32101- 4224 Jan, [facility] [id number] [place] [address] 67079- 5978 Jan, Chronic pain syndrome G89.4 [facility] [id number] [place] [address] 32174- 2849 Jan, Anemia, unspecified type D64.9 [facility] [address] [place] [address] 76543- 0246 Jan, Dysthymia F34.1 ; Cervicalgia M54.2 ; Fatigue, unspecified type R53.83 and Depression, unspecified depression type F32.9 [facility] [address], [place] [address]- 2926 Dec, [facility] [id number] [place] [address] 62895- 3106 Dec, Anxiety F41.9 [facility] [address] [place] [address] 16674- 6328 Dec, Chronic pain syndrome G89.4 [facility] [id number] [place] [address] 70173- 1824 November, [facility] [id number] [place] [address] 98076- 0684 November, Edema R60.9 and Dizziness R42 [facility] [address] 16475- 3868 November, [facility] [address] 12336- 8801 November, [facility] [id number] [place] [address] 75034- 0996 November, COPD (chronic obstructive pulmonary disease) J44.9 ; Increased tracheal secretions J39.8 and Edema R60.9 [facility] [id number] [place] [address] 50659 -7903 Oct, [facility] [id number] [place] [address] 07658 -1498 28 Oct, 2015 Shortness of breath R06.02 and Edema R60.9 [facility] [id number] [place] [address] 92213- 7153 Oct, Chronic bronchitis, unspecified chronic bronchitis type J42 ; Peripheral vascular disease, unspecified I73.9 ; Rheumatoid arthritis M06.9 and Atrial fibrillation I48.91 [facility] [id number] [place] [address] 46089- 1305 Oct, [facility] [address] 69087- 7899 Oct, [facility] [id number] [place] [address] 94853- 1768 Oct, [facility] [id number] [place] [address] 61420- 1471 Oct, [facility] [address] [address] Oct, COPD exacerbation J44.1 [facility] [id number] [place] [address] [phone] Sep, [facility] [id number] [place] [address] [phone]- [phone] Sep, [facility] [id number] [place] [address] [phone]- 4037 Sep, [facility] [id number] [place] [address] [id number]- 2859 Aug, [facility] [id number] [place] [address] 21502- 1351 Aug, 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 and PVD (peripheral vascular disease ) I73.9 [facility] [id number] [place] [address] [phone]- [phone] Aug, Bronchitis J40 ; COPD (chronic obstructive pulmonary disease ) J44.9 and Dysthymia F34.1 [facility] [id number] [place] [address] [phone]- [phone] Aug, [facility] [id number] [place] [address] [phone]- 8942 Jul, [facility] [id number] [place] [address] [phone] Jul, [facility] [id number] [place] [address] [id number]- 7280 Jul, [facility] [id number] [place] [address] [id number]- [phone] Jun, [facility] [id number] [place] [address] 28201- 2898 Jun, [facility] [id number] [place] [address] 27108- 9380 Jun, Peripheral vascular disease I73.9 [facility] [id number] [place] [address] [id number]- [phone] Jun, [facility] [id number] [place] [address] 73861- 6171 Jun, [facility] [id number] [place] [address] 813399- 7746 Jun, Leg pain, left M79.605 ; Dysphagia, unspecified dysphagia R13.10 ; Insomnia, unspecified type G47.00 ; PVD (peripheral vascular disease) I73.9 and 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 [facility] [id number] [place] [address] 68155- 6846 May, [facility] [id number] [place] [address] 69165- 5272 May, [facility] [id number] [place] [address] 66278- 2020 May, [facility] [id number] [place] [address] 06474- 1628 May, [facility] [id number] [place] [address] 54938- 6916 May, [facility] [id number] [place] [address] 71720- 7354 Apr, [facility] [id number] [place] [address] 75371- 2999 Apr, [facility] [id number] [place] [address] 42698- 8141 Mar, [facility] [id number] [place] [address] 662970- 4568 Mar, [facility] [id number] [place] [address] 07714- 2747 Feb, [facility] [id number] [address] 5002 Feb, Nicotine abuse 305.1 ; Arthralgia 719.40 and 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 [facility] [address] [address]- 7050 Feb, [facility] [address] [address]- 4541 Jan, [facility] [id number] [place] [address] 09973- 1057 Jan, [facility] [id number] [place] [address] 79955- 5189 Jan, [facility] [id number] [place] [address] 62290- 3622 Jan, [facility] [id number] [place] [address] 20827- 1509 Jan, 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 ; Rheumatoid arthritis 714.0 ; Hypertension 401.9 ; GERD (gastroesophageal reflux disease) 530.81 ; Nicotine addiction 305.1 and Leukocytosis 288.60 [facility] [address] [address]- 1454 Jan, [facility] [address] [address]- 3905 Jan, [facility] [address] [address]- 6475 Jan, [facility] [address] [address]- 9857 Jan, [facility] [address] [address]- 3952 Jan, [facility] [address] [address]- 8102 Dec, [facility] [address] [address]- 6134 Dec, [facility] [address] [address]- 8558 Dec, [facility] [id number] [place] [address] 493869- 8357 Dec, [facility] [id number] [place] [address] 33393- 1170 November, [facility] [id number] [place] [address] 37406- 0885 November, [facility] [id number] [place] [address] 28739- 9340 November, Shortness of breath 786.05 [facility] [id number] [place] [address] 42708- 2240 November, Rheumatoid arthritis 714.0 [facility] [id number] [place] [address] 76837- 0326 November, 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 [facility] [id number] [place] [address] 93505- 7708 November, Neuropathy 355.9 ; Insomnia 780.52 ; Dysthymia 300.4 ; Shortness of breath 786.05 ; Rheumatoid arthritis 714.0 and Nausea 787.02 [facility] [id number] [place] [address] 74307- 7223 November, [facility] [id number] [place] [address] 12674- 2242 November, [facility] [id number] [place] [address] 62202- 1621 Oct, [facility] [id number] [place] [address] 10163- 1076 Oct, [facility] [id number] [place] [address] 12138- 4945 Oct, [facility] [id number] [place] [address] 21321- 1170 Oct, [facility] [place] [facility] [address] [id number] [place] [address]- 2034 Sep, [facility] [place] [facility] [address] [id number] [place] [address]- 5019 Sep, [facility] [place] [facility] [address] [id number] [place] [address]- 6109 Sep, [facility] [place] [facility] [address] [id number] [place] [address]- 0454 Sep, [facility] [place] [facility] [address] [id number] [place] [address]- 0650 Sep, [facility] [place] [facility] [address] [id number] [place] [address]- 1577 Sep, [facility] [place] [facility] [address] [facility] [id number] [place] [address]- 4660 Sep, [facility] [place] [facility] [address] [id number] [place] [address]- 1723 Sep, [facility] [place] [facility] [address] [id number] [place] [address]- 5971 Aug, [facility] [place] [facility] [address] [facility] [id number] [place] [address]- 8511 Aug, [facility] [place] [facility] [address] [id number] [place] [address]- 4105 Aug, [facility] [place] [facility] [address] [id number], [place] [address]- 6885 Aug, [facility] [place] [facility] [address] [id number] [place] [address]- 4518 Aug, [facility] [place] [facility] [address] [id number] [place] [address]- 4806 Aug, [facility] [place] [facility] [address] [facility] [id number] [place] [address]- 6280 Jul, [facility] [place] [facility] [address] [id number] [place] [address]- 9536 Jul, [facility] [address] [id number] [place] [address]- 4854 Jul, [facility] [place] [facility] [address] [id number] [place] [address]- 8284 Jul, [facility] [place] [facility] [address] [id number] [place] [address]- 6829 Jul, [facility] [place] [facility] [address] [id number] [place] [address]- 8141 Jul, [facility] [place] [facility] [address] [id number] [place] [address]- 6801 Jul, [facility] [place] [facility] [address] [id number] [place] [address]- 4230 Jul, [facility] [place] [facility] [address] [id number] [place] [address]- 0043 Jul, [facility] [place] [facility] [address] [id number] [place] [address]- 0097 Jul, [facility] [place] [facility] [address] [id number] [place] [address]- 9928 Jun, [facility] [place] [facility] [address] [id number] [place] [address]- 3562 Jun, [facility] [place] [facility] [address] [id number] [place] [address]- 7770 Jun, [facility] [place] [facility] [address] [id number] [place] [address]- 1905 Jun, [facility] [place] [facility] [address] [id number] [place] [address]- 6255 Jun, [facility] [place] [facility] [address] [id number] [place] [address]- 7303 Jun, [facility] [place] [facility] [address] [id number] [place] [address]- 5303 Jun, [facility] [place] [facility] [address] [id number] [place] [address]- 2665 Jun, [facility] [place] [facility] [address] [id number] [place] [address]- 0053 Jun, [facility] [place] [facility] [address] [id number] [place] 6815 Jun, [facility] [place] [facility] [address] [id number] [place] [address]- 8689 Jun, [facility] [place] [facility] [address] [id number] [place] [address]- 1208 Jun, [facility] [place] [facility] [address] [id number] [place] [address]- 6834 Jun, [facility] [place] [facility] [address] [id number] [place] [address]- 3172 Jun, [facility] [place] [facility] [address] [id number] [place] [address]- 6867 Jun, [facility] [place] [facility] [address] [id number] [place] [address]- 7709 Jun, [facility] [place] [facility] [address] [id number] [place] [address]- 3928 May, [facility] [place] [facility] [address] [id number] [place] [address]- 3309 May, [facility] [place] [facility] [address] [id number] [place] [address]- 1735 May, [facility] [place] [facility] [address] [id number] [place] [address]- 3574 May, [facility] [place] [facility] [address] [id number] [place] [address]- 2830 May, [facility] [place] [facility] [address] [id number] [place] [address]- 0274 May, [facility] [place] [facility] [address] [id number] [address]- 7440 May, [facility] [place] [facility] [address] [id number] [place] [address]- 6811 May, [facility] [place] [facility] [address] [id number] [place] 0670 May, [facility] [place] [facility] [address] [id number] [place] [address]- 8168 Apr, [facility] [place] [facility] [address] [id number] [place] [address]- 3089 Apr, [facility] [place] [facility] [address] [id number] [place] [address]- 7853 Apr, [facility] [place] [facility] [address] [id number] [place] [address]- 1708 Apr, [facility] [place] [facility] [address] [id number] [place] [address]- 2303 Apr, [facility] [place] [facility] [address] [id number] [place] [address]- 6918 Apr, [facility] [place] [facility] [address] [id number] [place] [address]- 8594 Apr, [facility] [place] [facility] [address] [id number] [place] [address]- 5229 Apr, [facility] [place] [facility] [address] [id number], [place] [address]- 3295 Apr, [facility] [place] [facility] [address] [id number], [place] [address]- 2444 Apr, [facility] [place] [facility] [address] [id number] [place] [address]- 1166 Apr, [facility] [place] [facility] [address] [id number], [place] [address]- 5806 Apr, [facility] [place] [facility] [address] [id number] [place] [address]- 4090 Mar, [facility] [place] [facility] [address] [id number] [place] [address]- 4373 22 Mar, 2013 [facility] [place] [facility] [address] [id number] [place] [address]- 4646 Mar, 2013 [facility] [place] [facility] [address] [id number] [place] [address]- 2546 Mar, 2013 [facility] [place] [facility] [address] [id number] [place] [address]- 0966 Mar, 2013 [facility] [place] [facility] [address] [id number] [place] [address]- 4670 Mar, 2013 [facility] [place] [facility] [address] [id number] [place] [address]- 4829 Mar, 2013 [facility] [place] [facility] [address] [id number] [place] [address]- 3163 Mar, 2013 [facility] [place] [facility] [address] [id number] [place] [address]- 8491 Mar, 2013 [facility] [place] [facility] [address] [id number] [place] [address]- 1530 Mar, [facility] [place] [facility] [address] [id number] [place] [address]- 8947 Feb, [facility] [place] [facility] [address] [id number] [place] [address]- 7841 Feb, [facility] [place] [facility] [address] [id number] [place] [address]- 2544 Feb, [facility] [place] [facility] [address] [id number] [place] [address]- 2542 Feb, [facility] [place] [facility] [address] [id number] [place] [address]- 6697 Feb, [facility] [place] [facility] [address] [id number] [place] [address]- 4319 Feb, [facility] [place] [facility] [address] [id number] [place] [address]- 7830 Feb, [facility] [place] [facility] [address] [id number] [place] [address]- 6605 Feb, [facility] [place] [facility] [address] [id number] [place] [address]- 1446 Feb, [facility] [place] [facility] [address] [id number] [place] [address]- 1770 Feb, [facility] [place] [facility] [address] [id number] [place] [address]- 4417 Feb, [facility] [place] [facility] [address] [id number] [place] [address]- 1004 Feb, [facility] [place] [facility] [address] [id number] [place] [address]- 1607 Feb, [facility] [place] [facility] [address] [id number] [place] [address]- 3085 Feb, [facility] [place] [facility] [address] [id number] [place] [address]- 9774 Feb, [facility] [place] [facility] [address] [id number] [place] [address]- 0205 Feb, [facility] [place] [facility] [address] [id number] [place] [address]- 7015 Jan, [facility] [place] [facility] [address] [id number] [place] [address]- 2202 Jan, [facility] [place] [facility] [address] [id number] [place] [address]- 5657 Jan, [facility] [place] [facility] [address] [id number] [place] [address]- 0777 Jan, [facility] [place] [facility] [address] [id number] [place] [address]- 9502 Jan, [facility] [place] [facility] [address] [id number] [place] [address]- 6893 Jan, [facility] [place] [facility] [address] [id number] [place] [address]- 7363 Dec, [facility] [place] [facility] [address] [id number] [place] [address]- 9129 Dec, [facility] [place] [facility] [address] [id number] [place] [address]- 3394 Dec, [facility] [place] [facility] [address] [id number] [place] [address]- 6943 Dec, [facility] [place] [facility] [address] [id number] [place] [address]- 3174 Dec, [facility] [place] [facility] [address] [id number] [place] [address]- 9929 Dec, [facility] [place] [facility] [address] [id number] [place] [address]- 3589 Dec, [facility] [place] [facility] [address] [id number] [place] [address]- 6021 Dec, [facility] [place] [facility] [address] [id number] [place] [address]- 5160 November, [facility] [place] [facility] [address] [id number] [place] [address]- 6465 November, [facility] [place] [facility] [address] [id number] [place] [address]- 2991 November, [facility] [place] [facility] [address] [id number] [place] [address]- 7947 November, [facility] [place] [facility] [address] [id number] [place] [address]- 1108 November, [facility] [place] [facility] [address] [id number] [place] [address]- 3917 November, [facility] [place] [facility] [address] [id number] [place] [address]- 9319 Oct, [facility] [place] [facility] [address] [id number] [place] [address]- 2078 Oct, [facility] [place] [facility] [address] [id number] [place] [address]- 6179 Oct, [facility] [place] [facility] [address] [id number] [place] [address]- 8897 Oct, [facility] [place] [facility] [address] [id number] [place] [address]- 2243 Sep, [facility] [place] [facility] [address] [id number] [place] [address]- 0732 Sep, [facility] [place] [facility] [address] [id number] [place] [address]- 6538 Sep, [facility] [place] [facility] [address] [id number] [place] [address]- 5249 Sep, [facility] [place] [facility] [address] [facility] [id number] [place] [address]- 5859 Sep, [facility] [place] [facility] [address] [id number] [place] [address]- 2518 Sep, [facility] [place] [facility] [address] [id number] [place] [address]- 6759 Aug, [facility] [place] [facility] [address] [facility] [id number] [place] [address]- 0376 Aug, [facility] [place] [facility] [address] [facility] [id number] [place] [address]- 5153 Aug, [facility] [place] [facility] [address] [id number] [place] [address]- 1384 Aug, [facility] [place] [facility] [address] [id number] [place] [address]- 4537 Aug, [facility] [place] [facility] [address] [id number] [place] [address]- 0741 Aug, [facility] [place] [facility] [address] [facility] [id number] [place] [address]- 6021 Jul, [facility] [place] [facility] [address] [id number], [place] [address]- 0717 Jul, [facility] [address] [id number] [place] [address]- 8100 Jul, [facility] [place] [facility] [address] [id number] [place] [address]- 6372 Jul, [facility] [place] [facility] [address] [id number] [place] [address]- 3399 Jul, [facility] [place] [facility] [address] [id number] [place] [address]- 9539 Jul, [facility] [place] [facility] [address] [id number] [place] [address]- 6537 Jul, [facility] [place] [facility] [address] [id number] [place] [address]- 9461 Jul, [facility] [place] [facility] [address] [id number] [place] [address]- 7813 Jul, [facility] [place] [facility] [address] [id number] [place] [address]- 4384 Jul, [facility] [place] [facility] [address] [id number] [place] [address]- 1836 Jul, [facility] [place] [facility] [address] [id number] [place] [address]- 7147 Jul, [facility] [place] [facility] [address] [id number] [place] [address]- 5869 Jul, [facility] [place] [facility] [address] [id number] [place] [address]- 8330 Jul, [facility] [place] [facility] [address] [id number] [place] [address]- 4034 Jul, [facility] [place] [facility] [address] [id number] [place] [address]- 7726 Jun, [facility] [place] [facility] [address] [id number] [place] [address]- 5271 Jun, [facility] [place] [facility] [address] [id number] [place] [address]- 2576 Jun, [facility] [address] [id number] [place] [address]- 6278 Jun, [facility] [place] [facility] [address] [id number] [place] [address]- 3911 May, [facility] [place] [facility] [address] [id number] [place] [address]- 0053 May, [facility] [address] [id number] [id number] May, [facility] [place] [facility] [address] [id number] [place] [address]- 0209 May, [facility] [place] [facility] [address] [id number] [place] [address]- 7288 May, [facility] [place] [facility] [address] [facility] [id number], [place] [address] May, [facility] [place] [facility] [address] [id number], [place] [address] May, [facility] [place] [facility] [address] [facility] [id number], [place] [address] May, [facility] [place] [facility] [address] [id number], [place] [address] May, [facility] [address] [id number] [id number] May, [facility] [place] [facility] [address] [id number], [place] [address] May, [facility] [address] [id number][place] [id number] May, [facility] [place] [facility] [address] [id number][place] [id number] May, 2013 [facility] [address] [id number][place] [id number] May, [facility] [place] [facility] [address] [facility] [id number] May, IMMUNIZATIONS No Known Immunizations SOCIAL HISTORY Never Assessed REASON FOR VISIT Controlled Med Refill 12/29/17 PLAN OF CARE VITAL SIGNS MEDICATIONS Medication Instructions Dosage Frequency Start Date End Date Duration Status Oxycodone-Acetaminophen 5-325 MG Orally 2 times a day 1 tablet 12h 16 Dec, 2017 28 days Active RESULTS No Results PROCEDURES [...] leukocytosis--[facility] 01/08/16 Hospitalization History pseudomemranous colitis, sepsis--[facility] 04/21/2016 Hospitalization History C Diff--[facility] 05/10/2016 Hospitalization History sepsis, pneumonia, diarrhea--[facility] 06/11/16 Hospitalization History recurrent cdiff, pneumonia-[facility] 07/22/16 Hospitalization History sepsis,pneumonia- [facility]
--- OUTSIDE RECORDS SUMMARY | 2018-03-18 20:05 | XMS REPORT ---
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 Name Role Phone DAPHNE YUSUF Unavailable PROBLEMS Type Condition ICD9-CM Code WTC17-CC Code Onset Dates Condition Status SNOMED Code Problem Hx of Clostridium difficile infection Z86.19 Active 632067810 Problem History of arthroplasty of right knee Z96.651 Active 389288249 Problem Dysphagia, unspecified dysphagia R13.10 Active 30800805 Problem Chronic pain syndrome G89.4 Active 345291904 Problem 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 581245080 Problem Anxiety F41.9 Active 73632413 Problem Leg pain, left M79.605 Active 039014910 Problem Depression, unspecified depression type F32.9 Active 51471826 Problem Iron deficiency anemia, unspecified iron deficiency anemia type D50.9 Active 13660477 Problem Anemia, unspecified type D64.9 Active 380541629 Problem Seasonal allergic rhinitis due to pollen J30.1 Active 89185680 Problem Insomnia, unspecified G47.00 Active 930386233 Problem 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 525255184 Problem History of cerebrovascular accident with current residual effects I69.90 Active 332923213 Problem Peripheral vascular disease, unspecified I73.9 Active 148843109 Problem Rheumatoid arthritis, involving unspecified site, unspecified rheumatoid factor presence M06.9 Active 68697836 Problem Other chronic pain G89.29 Active 97824550 Problem Primary insomnia F51.01 Active 8027017 Problem Chronic obstructive pulmon disease w acute lower resp infct J44.0 Active 135376010 Problem Atrial fibrillation I48.91 Active 10031719 Problem Dysthymia F34.1 Active 50885807 Problem Osteoarthritis of foot M19.079 Active 467551585 Problem Rheumatoid arthritis M06.9 Active 07880377 Problem Tobacco abuse, 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 265050897 Problem Edema R60.9 Active 077741660 Problem COPD (chronic obstructive pulmonary disease) J44.9 Active 53507995 Problem Hypertension I10 Active 63579592 ALLERGIES No Information ENCOUNTERS Encounter Location Date Diagnosis [facility] [id number] [place] [address] 62577- 4145 Feb, Chronic pain syndrome G89.4 [facility] [id number] [place] [address] 68988- 0016 Jan, Chronic pain syndrome G89.4 [facility] [id number] [place] [address] 31505- 7278 Jan, [facility] [id number] [place] [address] 69598- 9422 Dec, Chronic pain syndrome G89.4 [facility] [id number] [place] [address] 20151- 3677 November, Chronic pain syndrome G89.4 [facility] [id number] [place] [address] 15565- 9803 November, [facility] [id number] [place] [address] 51712- 8515 Oct, Chronic pain syndrome G89.4 [facility] [id number] [place] [address] 56841- 2518 Oct, [facility] [id number] [place] [address] 47980- 0657 Oct, Chronic pain syndrome G89.4 [facility] [id number] [place] [address] 63586- 6361 Oct, [facility] [id number] [place] [address] 56975- 8508 Oct, [facility] [id number] [place] [address] 84560- 7451 Sep, Left upper quadrant pain R10.12 ; Chronic pain syndrome G89.4 ; Left lower quadrant pain R10.32 ; Other chronic pain G89.29 ; Sacrococcygeal disorders, not elsewhere classified M53.3 and Seasonal allergic rhinitis due to pollen J30.1 [facility] [id number] [place] [address] 84044- 0087 Sep, Chronic pain syndrome G89.4 [facility] [id number] [place] [address] 61320- 4516 Sep, [facility] [address] 32117- 7323 Aug, Chronic pain syndrome G89.4 [facility] [id number] [place] [address] 50886- 8526 Aug, [facility] [address] 23078- 1187 Aug, Insomnia, unspecified G47.00 [facility] [id number] [place] [address] 04584- 2082 Jul, [facility] [id number] [place] [address] 36611- 0328 Jul, [facility] [id number] [place] [address] 60296- 0579 Jul, Chronic pain syndrome G89.4 [facility] [id number] [place] [address] 37583- 8376 Jun, Chronic pain syndrome G89.4 [facility] [id number] [place] [address] 73471- 5665 04 Jun, 2017 Chronic pain syndrome G89.4 [facility] [id number] [place] [address] 01694- 7250 May, [facility] [id number] [place] [address] 55798- 8755 08 May, 2017 Shortness of breath R06.02 ; Peripheral vascular disease, unspecified I73.9 ; Pain in right knee M25.561 ; Other chronic pain G89.29 ; Chest wall pain R07.89 ; Chronic pain syndrome G89.4 ; Primary insomnia F51.01 and Ear pain, left H92.02 [facility] [address] 22872- 9939 May, Anxiety F41.9 [facility] [id number] [place] [address] 71347- 2873 Apr, Pneumonia due to infectious organism, unspecified laterality , unspecified part of lung J18.9 ; Hypoxia R09.02 ; Bradycardia R00.1 ; History of Clostridium difficile Z87.19 and Primary insomnia F51.01 [facility] [address] 01973- 6652 Apr, Anxiety F41.9 [facility] [address] 56872- 5366 Apr, [facility] [address] 05798- 4902 Mar, Anxiety F41.9 [facility] [address] 39895- 5572 Feb, [facility] [address] 28576- 2169 Feb, [facility] [id number] [place] [address] 84299- 2355 Feb, Abnormal finding on urinalysis R82.90 [facility] [id number] [place] [address] 62777- 9840 Feb, [facility] [id number] [place] [address] 55239- 4484 Feb, Shortness of breath R06.02 ; Tachycardia R00.0 ; Cough R05 ; Ill feeling R68.89 and Abnormal finding on urinalysis R82.90 [facility] [id number] [place] [address] 01102- 7393 Feb, Anxiety F41.9 [facility] [address] [address] Feb, Sore throat J02.9 and Acute diffuse otitis externa of left ear H60.312 [facility] [id number] [place] [address] 66231- 0661 Jan, [facility] [id number] [place] [address] 10267- 8589 Jan, [facility] [place] [id number] [place] [address] [id number] Jan, [facility] [id number] [place] [address] 01241- 7505 Jan, Depression, unspecified depression type F32.9 ; Chronic bronchitis, unspecified chronic bronchitis type J42 ; Chronic pain syndrome G89.4 and Anxiety F41.9 [facility] [id number] [place] [address] 39175- 2913 Jan, [facility] [id number] [place] [address] 36373- 8748 Jan, [facility] [id number] [place] [address] 99351- 2882 Jan, [facility] [place] [id number] [place] [address] [id number] Jan, Chronic pain syndrome G89.4 [facility] [address] [id number] Dec, History of right knee surgery Z98.890 [facility] [id number] [place] [address] 04650- 1691 Dec, [facility] [id number] [place] [address] 25343- 7590 Dec, Chronic pain syndrome G89.4 [facility] [id number] [place] [address] 77362- 8569 November, Anxiety F41.9 [facility] [id number] [place] [address] 85908 -6064 16 Nov, 2016 Acute cystitis without hematuria N30.00 [facility] [id number] [place] [address] 14103 -9727 November, Fever, unspecified fever cause R50.9 and Acute cystitis without hematuria N30.00 [facility] [address] [address]- 2189 November, Chronic pain syndrome G89.4 [facility] [id number] [place] [address] 66154- 2055 Oct, Anxiety F41.9 [facility] [id number] [place] [address] 18610- 1342 Oct, Chronic pain syndrome G89.4 [facility] [id number] [place] [address] 62755- 7726 Oct, Chronic pain syndrome G89.4 [facility] [id number] [place] [address] 72311- 4926 Oct, [facility] [id number] [place] [address] 08317- 6761 Oct, Chronic pain syndrome G89.4 ; Pain in right knee M25.561 ; History of Clostridium difficile Z87.19 ; Iron deficiency anemia, unspecified iron deficiency anemia type D50.9 ; Peripheral vascular disease, unspecified I73.9 and Atrial fibrillation I48.91 [facility] [id number] [place] [address] 17287- 9676 Oct, [facility] [id number] [place] [address] 30811- 9314 Oct, Chronic pain syndrome G89.4 [facility] [id number] [place] [address] 15360- 5472 Sep, [facility] [id number] [place] [address] 75177- 0943 Sep, Depression, unspecified depression type F32.9 ; Chronic bronchitis, unspecified chronic bronchitis type J42 ; Chronic pain syndrome G89.4 and Anxiety F41.9 [facility] [address] [id number] Sep, History of Clostridium difficile infection Z86.19 and History of stroke Z86.73 [facility] [place] [id number] [place] [address] [id number] Sep, Anxiety F41.9 [facility] [id number] [place] [address] 59597- 7519 Sep, Chronic pain syndrome G89.4 [facility] [id number] [place] [address] 19473- 0326 Sep, [facility] [place] [id number] [place] [address] [id number] Sep, [facility] [id number] [place] [address] 92332- 1954 Aug, Anxiety F41.9 [facility] [id number] [place] [address] 38178- 7049 Aug, Anxiety F41.9 [facility] [id number] [place] [address] 77736- 6950 Aug, [facility] [address] [address]- 8613 Aug, Acute knee pain, unspecified laterality M25.569 [facility] [id number] [place] [address] 05785- 9088 Aug, [facility] [address], [place] [address]- 6862 Aug, Chronic pain syndrome G89.4 [facility] [id number] [place] [address] 58493- 1357 Aug, [facility] [address], [place] [address]- 2904 Aug, [facility] [id number] [place] [address] 19376- 0686 Jul, [facility] [id number] [place] [address] 75841- 7837 Jul, Anxiety F41.9 [facility] [id number] [place] [address] 62572- 8553 Jul, Clostridium difficile diarrhea A04.7 [facility] [address] [place] [id number] Jul, Clostridium difficile diarrhea A04.7 ; Chronic pain syndrome G89.4 ; Chronic obstructive pulmon disease w acute lower resp infct J44.0 and Pain in right knee M25.561 [facility] [place] [id number] [place] [address] [id number] Jul, [facility] [id number] [place] [address] 72847 -8827 Jul, Anxiety F41.9 and Chronic pain syndrome G89.4 [facility] [id number] [place] [address] 56387- 1361 Jun, Anxiety F41.9 [facility] [id number] [place] [address] 18401- 6062 Jun, Rheumatoid arthritis 714.0 [facility] [id number] [place] [address] 61020- 2846 Jun, Chronic pain syndrome G89.4 [facility] [id number] [place] [address] 85966- 9521 Jun, [facility] [id number] [place] [address] 70204- 5757 Jun, [facility] [id number] [place] [address] 75413- 6764 Jun, History of pneumonia Z87.01 and History of Clostridium difficile Z87.19 [facility] [id number] [place] [address] 26765- 1946 Jun, [facility] [address], [place] [address]- 1595 May, [facility] [id number] [place] [address] 71574- 5502 May, Anxiety F41.9 [facility] [id number] [place] [address] 90338- 4677 May, Chronic pain syndrome G89.4 [facility] [id number] [place] [address] 85104- 4246 May, Chronic bronchitis, unspecified chronic bronchitis type J42 [facility] [id number] [place] [address] 03465- 1535 May, [facility] [id number] [place] [address] 45982- 6352 May, C. difficile diarrhea A04.7 ; Peripheral edema R60.9 ; COPD (chronic obstructive pulmonary disease) J44.9 ; Rheumatoid arthritis, involving unspecified site, unspecified rheumatoid factor presence M06.9 ; Pain in right knee M25.561 ; Pain in left knee M25.562 and Other chronic pain G89.29 [facility] [id number] [place] [address] 19713- 1105 May, [facility] [id number] [place] [address] 98105- 2153 May, [facility] [id number] [place] [address] 45948- 7426 May, Anxiety F41.9 [facility] [id number] [place] [address] 58091- 6579 Apr, [facility] [id number] [place] [address] 29961- 7167 Apr, Chronic pain syndrome G89.4 [facility] [id number] [place] [address] 57638- 9186 Apr, Leg pain, left M79.605 [facility] [address], [place] [address]- 8044 14 Apr, 2016 [facility] [address], [place] [address]- 9527 11 Apr, 2016 [facility] [address], [place] [address]- 0155 04 Apr, 2016 [facility] [id number] [place] [address] 65131- 9427 28 Mar, 2016 Chronic pain syndrome G89.4 [facility] [id number] [place] [address] 76305- 1969 22 Mar, 2016 Acute frontal sinusitis, recurrence not specified J01.10 [facility] [address], [place] [address]- 4888 20 Mar, 2016 Iron deficiency anemia, unspecified iron deficiency anemia type D50.9 ; Rheumatoid arthritis with positive rheumatoid factor, involving unspecified site M05.9 and Depression, unspecified depression type F32.9 [facility] [address], [place] [address]- 6321 13 Mar, 2016 Iron deficiency anemia, unspecified iron deficiency anemia type D50.9 ; Depression, unspecified depression type F32.9 and Rheumatoid arthritis with positive rheumatoid factor, involving unspecified site M05.9 [facility] [address], [place] [address]- 0406 Mar, [facility] [address], [place] [address]- 2976 Mar, [facility] [address], [place] [address]- 9374 Feb, Chronic pain syndrome G89.4 [facility] [address], [place] [address]- 1512 Feb, 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 ; Status post CVA Z86.73 ; Hemiplegia G81.90 and Anemia, unspecified type D64.9 [facility] [address], [place] [address]- 0078 Feb, [facility] [id number] [place] [address] 43211- 2441 Feb, Anemia, unspecified type D64.9 [facility] [address], [place] [address]- 3820 Feb, [facility] [id number] [place] [address] 06377- 9044 Feb, Iron deficiency anemia, unspecified iron deficiency anemia type D50.9 [facility] [id number] [place] [address] 58351- 5261 Feb, [facility] [id number] [place] [address] 71680- 8030 Feb, Chronic bronchitis, unspecified chronic bronchitis type J42 [facility] [id number] [place] [address] 18595- 8303 Feb, Iron deficiency anemia, unspecified iron deficiency anemia type D50.9 [facility] [address], [place] [address]- 7063 Feb, Chronic pain syndrome G89.4 [facility] [id number] [place] [address] 08179- 1832 Feb, Anemia, unspecified type D64.9 and Hypoxia R09.02 [facility] [address], [place] [address]- 3386 Feb, Anemia, unspecified type D64.9 [facility] [address], [place] [address]- 4421 Jan, [facility] [id number] [place] [address] 44762- 4616 Jan, Anemia, unspecified type D64.9 [facility] [address], [place] [address]- 1359 Jan, [facility] [address], [place] [address]- 5926 Jan, Anemia, unspecified type D64.9 [facility] [id number] [place] [address] 52734- 9696 Jan, Anemia, unspecified type D64.9 [facility] [id number] [place] [address] 49233- 6121 Jan, [facility] [id number] [place] [address] 56761- 8820 Jan, Anemia, unspecified type D64.9 [facility] [id number] [place] [address] 65799- 7961 Jan, [facility] [id number] [place] [address] 67907- 7486 Jan, [facility] [id number] [place] [address] 05832- 7288 Jan, Chronic pain syndrome G89.4 [facility] [id number] [place] [address] 82668- 9247 Jan, Anemia, unspecified type D64.9 [facility] [id number] [place] [address] 56608- 0530 Jan, Dysthymia F34.1 ; Cervicalgia M54.2 ; Fatigue, unspecified type R53.83 and Depression, unspecified depression type F32.9 [facility] [address], [place] [address]- 9036 Dec, [facility] [id number] [place] [address] 53260- 7728 Dec, Anxiety F41.9 [facility] [address], [place] [address]- 2833 Dec, Chronic pain syndrome G89.4 [facility] [id number] [place] [address] 11176- 0307 November, [facility] [id number] [place] [address] 85821- 0497 November, Edema R60.9 and Dizziness R42 [facility] [id number] [place] [address] 54094- 6951 November, [facility] [id number] [place] [address] 90740- 1714 November, [facility] [id number] [place] [address] 56805- 7715 November, COPD (chronic obstructive pulmonary disease) J44.9 ; Increased tracheal secretions J39.8 and Edema R60.9 [facility] [id number] [place] [address] 43775 -6521 Oct, [facility] [id number] [place] [address] 48255 -6684 Oct, Shortness of breath R06.02 and Edema R60.9 [facility] [id number] [place] [address] 97395- 1853 Oct, Chronic bronchitis, unspecified chronic bronchitis type J42 ; Peripheral vascular disease, unspecified I73.9 ; Rheumatoid arthritis M06.9 and Atrial fibrillation I48.91 [facility] [id number] [place] [address] 45949- 3869 Oct, [facility] [id number] [place] [address] 73477- 7968 Oct, [facility] [id number] [place] [address] 27878- 0014 Oct, [facility] [id number] [place] [address] 43246- 4079 Oct, [facility] [id number] [place] [address] [phone] -6669 Oct, COPD exacerbation J44.1 [facility] [id number] [place] [address] 03822- 3031 Sep, [facility] [id number] [address] Sep, [facility] [id number] [place] [address] 50178- 5199 Sep, [facility] [id number] [place] [address] 31959- 5809 Aug, [facility] [id number] [place] [address] 41582- 7773 Aug, 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 and PVD (peripheral vascular disease ) I73.9 [facility] [id number] [place] [address] 82166- 3519 Aug, Bronchitis J40 ; COPD (chronic obstructive pulmonary disease ) J44.9 and Dysthymia F34.1 [facility] [id number] [place] [address] 03208- 6258 Aug, [facility] [id number], [place] [address] Jul, [facility] [id number] [place] [address] 52083- 5497 Jul, [facility] [id number] [address] Jul, [facility] [id number] [place] [address] 52300- 1182 Jun, [facility] [id number] [address] Jun, [facility] [id number] [place] [address] 31693- 0221 Jun, Peripheral vascular disease I73.9 [facility] [id number] [address] 74[address] Jun, [facility] [id number] [place] [address] 26685- 1299 Jun, [facility] [id number] [place] [address] [id number]- [id number] Jun, Leg pain, left M79.605 ; Dysphagia, unspecified dysphagia R13.10 ; Insomnia, unspecified type G47.00 ; PVD (peripheral vascular disease) I73.9 and 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 [facility] [address] [address]- 3735 May, [facility] [id number] [place] [address] 77191- 9715 May, [facility] [address] 24641- 7898 May, [facility] [id number] [place] [address] 920294- 1682 May, [facility] [id number] [place] [address] 00347- 1196 May, [facility] [id number] [place] [address] 79684- 0151 Apr, [facility] [id number] [place] [address] 43865- 4472 Apr, [facility] [id number] [place] [address] 71410- 3711 Mar, [facility] [id number] [place] [address] [id number]- 6237 Mar, [facility] [id number] [place] [address] 87240- 9313 Feb, [facility] [address] [id number]- 9471 Feb, Nicotine abuse 305.1 ; Arthralgia 719.40 and 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 [facility] [id number] [place] [address] 71978- 6585 Feb, [facility] [address] [facility] [id number] [address] 6068 Jan, [facility] [id number], [place] [address]- 4555 Jan, [facility] [id number], [place] [address]- 9050 Jan, [facility] [id number], [place] [address]- 2814 Jan, [facility] [id number], [place] [address]- 8278 Jan, 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 ; Rheumatoid arthritis 714.0 ; Hypertension 401.9 ; GERD (gastroesophageal reflux disease) 530.81 ; Nicotine addiction 305.1 and Leukocytosis 288.60 [facility] [id number], [place] [address]- 3020 Jan, [facility] [id number], [place] [address]- 0005 Jan, [facility] [id number], [place] [address]- 3934 Jan, [facility] [id number], [place] [address]- 3471 Jan, [facility] [id number] [address]- 3744 Jan, [facility] [id number] [address]- 7246 Dec, [facility] [id number] 7377 Dec, [facility] [address] [id number] [address]- 9636 Dec, [facility] [address] [id number] [address]- 4239 Dec, [facility] [id number] [place] [address] 17529- 2014 November, [facility] [id number] [place] [address] 71574- 7647 November, [facility] [id number] [place] [address] 42765- 5981 November, Shortness of breath 786.05 [facility] [address] 13683- 5193 November, Rheumatoid arthritis 714.0 [facility] [id number] [place] [address] 07644- 6015 November, 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 [facility] [id number] [place] [address] 26466- 5214 November, Neuropathy 355.9 ; Insomnia 780.52 ; Dysthymia 300.4 ; Shortness of breath 786.05 ; Rheumatoid arthritis 714.0 and Nausea 787.02 [facility] [id number] [place] [address] 56143- 4609 November, [facility] [id number] [place] [address] 05148- 5739 November, [facility] [id number] [place] [address] 80117- 5895 Oct, [facility] [id number] [place] [address] 45228- 4897 Oct, [facility] [id number] [place] [address] 35414- 6607 Oct, [facility] [id number] [place] [address] 49052- 6439 Oct, [facility] [id number] [place] [address] 10776- 5333 Sep, [facility] [id number] [place] [address] 35599- 0209 Sep, [facility] [place] [facility] [address] [id number] [place] [address]- 7812 Sep, [facility] [place] [facility] [address] [id number] [place] [address]- 9070 Sep, [facility] [place] [facility] [address] [id number] [place] 3408 Sep, [facility] [place] [facility] [address] [id number] [place] [address]- 3781 Sep, [facility] [place] [facility] [address] [id number] [place] [address]- 1618 Sep, [facility] [place] [facility] [address] [id number] [place] [address]- 8984 Sep, [facility] [place] [facility] [address] [id number] [place] [address]- 1824 Aug, [facility] [place] [facility] [address] [id number] [place] [address]- 7020 Aug, [facility] [place] [facility] [address] [id number] [place] [address]- 1820 Aug, [facility] [place] [facility] [address] [facility] [id number] [place] [address]- 7519 Aug, [facility] [place] [facility] [address] [facility] [id number] [place] [address]- 6601 Aug, [facility] [place] [facility] [address] [id number] [place] [address]- 1193 Aug, [facility] [place] [facility] [address] [id number] [place] [address]- 7822 Jul, [facility] [place] [facility] [address] [id number] [place] [address]- 8854 Jul, [facility] [place] [facility] [address] [id number] [place] 0790 Jul, [facility] [place] [facility] [address] [id number], [place] [address]- 5354 Jul, [facility] [place] [facility] [address] [id number] [place] [address]- 0321 Jul, [facility] [place] [facility] [address] [id number] [place] [address]- 2122 Jul, [facility] [place] [facility] [address] [id number] [place] [address]- 4204 Jul, [facility] [place] [facility] [address] [id number] [place] [address]- 1971 Jul, [facility] [place] [facility] [address] [id number] [place] [address]- 8991 Jul, [facility] [place] [facility] [address] [id number] [place] [address]- 1210 Jul, [facility] [place] [facility] [address] [id number] [place] [address]- 1331 Jun, [facility] [place] [facility] [address] [id number] [place] [address]- 8761 Jun, [facility] [place] [facility] [address] [id number] [place] [address]- 0350 Jun, [facility] [place] [facility] [address] [id number] [place] [address]- 3641 Jun, [facility] [place] [facility] [address] [id number] [place] [address]- 0984 Jun, [facility] [place] [facility] [address] [id number] [place] [address]- 8052 Jun, [facility] [place] [facility] [address] [id number] [place] [address]- 7498 Jun, [facility] [place] [facility] [address] [id number] [place] [address]- 5105 Jun, [facility] [place] [facility] [address] [id number] [place] [address]- 0183 Jun, [facility] [place] [facility] [address] [id number] [place] [address]- 8773 Jun, [facility] [place] [facility] [address] [id number] [place] [address]- 0716 Jun, [facility] [place] [facility] [address] [id number] [place] 6672 Jun, [facility] [place] [facility] [address] [id number] [place] [address]- 9206 Jun, [facility] [place] [facility] [address] [id number] [place] [address]- 1644 Jun, [facility] [place] [facility] [address] [id number] [place] [address]- 3489 Jun, [facility] [place] [facility] [address] [id number] [place] [address]- 0818 Jun, [facility] [place] [facility] [address] [id number] [place] [address]- 9783 May, [facility] [place] [facility] [address] [id number] [place] [address]- 2685 May, [facility] [place] [facility] [address] [id number] [place] [address]- 6715 May, [facility] [place] [facility] [address] [id number] [place] [address]- 3555 May, [facility] [place] [facility] [address] [id number] [place] [address]- 1253 May, [facility] [place] [facility] [address] [id number] [place] [address]- 8301 May, [facility] [place] [facility] [address] [id number] [place] [address]- 2215 May, [facility] [place] [facility] [address] [id number] [place] 1491 May, [facility] [place] [facility] [address] [id number] [place] [address]- 9269 May, [facility] [place] [facility] [address] [id number] [place] [address]- 4153 Apr, [facility] [place] [facility] [address] [id number] [place] [address]- 6170 Apr, [facility] [place] [facility] [address] [id number] [place] [address]- 5442 Apr, [facility] [place] [facility] [address] [id number] [place] [address]- 6672 Apr, [facility] [place] [facility] [address] [id number] [place] [address]- 9669 Apr, [facility] [place] [facility] [address] [id number] [place] [address]- 8713 Apr, [facility] [place] [facility] [address] [id number] [place] [address]- 9579 Apr, [facility] [place] [facility] [address] [id number] [place] [address]- 1254 Apr, [facility] [place] [facility] [address] [id number] [place] [address]- 3034 Apr, [facility] [place] [facility] [address] [id number], [place] [address]- 6010 Apr, [facility] [place] [facility] [address] [id number], [place] [address]- 6230 Apr, [facility] [place] [facility] [address] [id number], [place] [address]- 6857 Apr, [facility] [place] [facility] [address] [id number] [place] [address]- 7589 Mar, [facility] [place] [facility] [address] [id number] [place] [address]- 8209 Mar, [facility] [place] [facility] [address] [id number] [place] [address]- 6722 Mar, [facility] [place] [facility] [address] [id number] [place] [address]- 9365 19 Mar, 2013 [facility] [place] [facility] [address] [id number] [place] [address]- 3537 11 Mar, 2013 [facility] [place] [facility] [address] [id number] [place] [address]- 9886 Mar, 2013 [facility] [place] [facility] [address] [id number] [place] [address]- 2936 Mar, 2013 [facility] [place] [facility] [address] [id number] [place] [address]- 2259 Mar, 2013 [facility] [place] [facility] [address] [id number] [place] [address]- 2934 Mar, [facility] [place] [facility] [address] [id number] [place] [address]- 7621 Mar, [facility] [place] [facility] [address] [id number] [place] [address]- 8094 Feb, [facility] [place] [facility] [address] [id number] [place] [address]- 0330 Feb, [facility] [place] [facility] [address] [id number] [place] [address]- 6028 Feb, [facility] [place] [facility] [address] [id number] [place] [address]- 1594 Feb, [facility] [place] [facility] [address] [id number] [place] [address]- 6965 Feb, [facility] [place] [facility] [address] [id number] [place] [address]- 2545 Feb, [facility] [place] [facility] [address] [id number] [place] [address]- 7232 Feb, [facility] [place] [facility] [address] [id number] [place] [address]- 8857 Feb, [facility] [place] [facility] [address] [id number] [place] [address]- 0201 Feb, [facility] [place] [facility] [address] [id number] [place] [address]- 5321 Feb, [facility] [place] [facility] [address] [id number] [place] [address]- 3691 Feb, [facility] [place] [facility] [address] [id number] [place] [address]- 2957 Feb, [facility] [place] [facility] [address] [id number] [place] [address]- 0054 Feb, [facility] [place] [facility] [address] [id number] [place] [address]- 9147 Feb, [facility] [place] [facility] [address] [id number] [place] [address]- 5347 Feb, [facility] [place] [facility] [address] [id number] [place] [address]- 5572 Feb, [facility] [place] [facility] [address] [id number] [place] [address]- 8826 Jan, [facility] [place] [facility] [address] [id number] [place] [address]- 2400 Jan, [facility] [place] [facility] [address] [id number] [place] [address]- 5508 Jan, [facility] [place] [facility] [address] [id number] [place] [address]- 3215 Jan, [facility] [place] [facility] [address] [id number] [place] [address]- 0556 Jan, [facility] [place] [facility] [address] [id number] [place] [address]- 7771 Jan, [facility] [place] [facility] [address] [id number] [place] [address]- 8014 Dec, [facility] [place] [facility] [address] [id number] [place] [address]- 1921 Dec, [facility] [place] [facility] [address] [id number] [place] [address]- 4379 Dec, [facility] [place] [facility] [address] [id number] [place] [address]- 1885 Dec, [facility] [place] [facility] [address] [id number] [place] [address]- 4134 Dec, [facility] [place] [facility] [address] [id number] [place] [address]- 7564 Dec, [facility] [place] [facility] [address] [id number] [place] [address]- 8198 Dec, [facility] [place] [facility] [address] [id number] [place] [address]- 7208 Dec, [facility] [place] [facility] [address] [id number] [place] [address]- 9031 November, [facility] [place] [facility] [address] [id number] [place] [address]- 4521 November, [facility] [place] [facility] [address] [id number] [place] [address]- 8554 November, [facility] [place] [facility] [address] [id number] [place] [address]- 1477 November, [facility] [place] [facility] [address] [id number] [place] [address]- 1836 November, [facility] [place] [facility] [address] [id number] [place] [address]- 6381 November, [facility] [place] [facility] [address] [id number] [place] [address]- 1971 Oct, [facility] [place] [facility] [address] [id number] [place] [address]- 9596 Oct, [facility] [place] [facility] [address] [id number] [place] [address]- 6841 Oct, [facility] [place] [facility] [address] [id number] [place] [address]- 3621 Oct, [facility] [place] [facility] [address] [id number] [place] [address]- 2351 Sep, [facility] [place] [facility] [address] [id number] [place] [address]- 9864 Sep, [facility] [place] [facility] [address] [id number] [place] [address]- 0179 Sep, [facility] [place] [facility] [address] [id number] [place] [address]- 4495 Sep, [facility] [place] [facility] [address] [id number] [place] [address]- 9723 Sep, [facility] [place] [facility] [address] [id number] [place] [address]- 2972 Sep, [facility] [place] [facility] [address] [id number] [place] [address]- 7423 Aug, [facility] [place] [facility] [address] [id number] [place] [address]- 7451 Aug, [facility] [place] [facility] [address] [id number] [place] [address]- 8875 Aug, [facility] [place] [facility] [address] [id number] [place] [address]- 2066 Aug, [facility] [place] [facility] [address] [facility] [id number] [place] [address]- 6207 Aug, [facility] [place] [facility] [address] [id number] [place] [address]- 2925 Aug, [facility] [place] [facility] [address] [id number] [place] [address]- 9148 Jul, [facility] [place] [facility] [address] [id number] [place] [address]- 1135 Jul, [facility] [place] [facility] [address] [id number] [place] [address]- 5499 Jul, [facility] [place] [facility] [address] [id number] [place] [address]- 5174 Jul, [facility] [address] [id number] [place] [address]- 2910 Jul, [facility] [place] [facility] [address] [id number] [place] [address]- 2238 Jul, [facility] [place] [facility] [address] [id number] [place] [address]- 5520 Jul, [facility] [place] [facility] [address] [id number] [place] [address]- 4839 Jul, [facility] [place] [facility] [address] [id number] [place] [address]- 3204 Jul, [facility] [place] [facility] [address] [id number] [place] [address]- 4754 Jul, [facility] [place] [facility] [address] [id number] [place] [address]- 6558 Jul, [facility] [place] [facility] [address] [id number] [place] [address]- 5249 Jul, [facility] [place] [facility] [address] [id number] [place] [address]- 3569 Jul, [facility] [place] [facility] [address] [id number] [place] [address]- 2690 Jul, [facility] [place] [facility] [address] [id number], [place] [address]- 3250 Jul, [facility] [place] [facility] [address] [id number], [place] [address]- 6956 Jun, [facility] [place] [facility] [address] [id number] [place] [address]- 8381 Jun, [facility] [place] [facility] [address] [id number] [place] [address]- 1350 Jun, [facility] [place] [facility] [address] [id number] [place] [address]- 5128 Jun, [facility] [place] [facility] [id number], [place] [address]- 7151 May, [facility] [id number], [place] [address]- 8986 May, [facility] [id number] [id number] May, [facility] [id number] [address] May, [facility] [id number] [address] May, [facility] [id number] [place] [id number] May, [facility] [id number] [address] May, [facility] [id number], [place] [address] May, [facility] [id number] [address] May, [facility] [id number] [id number] May, [facility] [id number] [address] May, [facility] [id number] [id number] May, [facility] [id number], [place] [address] May, [facility] [id number] [id number] May, [facility] [id number], [place] [address] May, IMMUNIZATIONS No Known Immunizations SOCIAL HISTORY Never Assessed REASON FOR VISIT Controlled Med Refill 12/01/17 PLAN OF CARE VITAL SIGNS MEDICATIONS Medication Instructions Dosage Frequency Start Date End Date Duration Status Oxycodone-Acetaminophen 5-325 MG Orally 2 times a day 1 tablet 12h 20 Nov, 2017 28 days Active RESULTS No Results [...] leukocytosis--[facility]ank [facility] 01/08/16 Hospitalization History pseudomemranous colitis, sepsis--[facility] 04/21/2016 Hospitalization History C Diff--[facility] 05/10/2016 Hospitalization History sepsis, pneumonia, diarrhea--[facility] 06/11/16 Hospitalization History recurrent cdiff, pneumonia-[facility] 07/22/16 Hospitalization History sepsis,pneumonia- [facility]
--- OUTSIDE RECORDS SUMMARY | 2018-03-18 20:06 | XMS REPORT ---
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 Varnishing Unit Tool Setter Name Role Phone DAPHNE YUSUF Unavailable PROBLEMS Type Condition ICD9-CM Code WDC31-BE Code Onset Dates Condition Status SNOMED Code Problem Hx of Clostridium difficile infection Z86.19 Active 706561118 Problem History of arthroplasty of right knee Z96.651 Active 236259605 Problem Dysphagia, unspecified dysphagia R13.10 Active 11798166 Problem Chronic pain syndrome G89.4 Active 228280122 Problem 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 948645657 Problem Anxiety F41.9 Active 98273036 Problem Leg pain, left M79.605 Active 456396023 Problem Depression, unspecified depression type F32.9 Active 26530312 Problem Iron deficiency anemia, unspecified iron deficiency anemia type D50.9 Active 99191050 Problem Anemia, unspecified type D64.9 Active 297733164 Problem Seasonal allergic rhinitis due to pollen J30.1 Active 13567759 Problem Insomnia, unspecified G47.00 Active 575560037 Problem 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 878075132 Problem History of cerebrovascular accident with current residual effects I69.90 Active 039773972 Problem Peripheral vascular disease, unspecified I73.9 Active 210149753 Problem Rheumatoid arthritis, involving unspecified site, unspecified rheumatoid factor presence M06.9 Active 81411395 Problem Other chronic pain G89.29 Active 31441865 Problem Primary insomnia F51.01 Active 7969176 Problem Chronic obstructive pulmon disease w acute lower resp infct J44.0 Active 354267749 Problem Atrial fibrillation I48.91 Active 96547527 Problem Dysthymia F34.1 Active 74963379 Problem Osteoarthritis of foot M19.079 Active 102324649 Problem Rheumatoid arthritis M06.9 Active 54476096 Problem Tobacco abuse, 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 792234617 Problem Edema R60.9 Active 513712705 Problem COPD (chronic obstructive pulmonary disease) J44.9 Active 18666568 Problem Hypertension I10 Active 07886658 ALLERGIES No Information ENCOUNTERS Encounter Location Date Diagnosis [facility] [id number] [place] [address] 26029- 5815 Feb, Chronic pain syndrome G89.4 [facility] [id number] [place] [address] 59984- 3845 Jan, Chronic pain syndrome G89.4 [facility] [id number] [place] [address] 57505- 8868 Jan, [facility] [id number] [place] [address] 67578- 4734 Dec, Chronic pain syndrome G89.4 [facility] [id number] [place] [address] 01067- 8015 November, Chronic pain syndrome G89.4 [facility] [id number] [place] [address] 37919- 1277 November, [facility] [id number] [place] [address] 67492- 3476 Oct, Chronic pain syndrome G89.4 [facility] [id number] [place] [address] 69733- 4514 Oct, [facility] [id number] [place] [address] 61185- 5075 Oct, Chronic pain syndrome G89.4 [facility] [id number] [place] [address] 01159- 2248 Oct, [facility] [id number] [place] [address] 37957- 2372 Oct, [facility] [id number] [place] [address] 17729- 6208 Sep, Left upper quadrant pain R10.12 ; Chronic pain syndrome G89.4 ; Left lower quadrant pain R10.32 ; Other chronic pain G89.29 ; Sacrococcygeal disorders, not elsewhere classified M53.3 and Seasonal allergic rhinitis due to pollen J30.1 [facility] [id number] [place] [address] 51575- 3330 Sep, Chronic pain syndrome G89.4 [facility] [id number] [place] [address] 45753- 2296 Sep, [facility] [address] 78549- 6664 Aug, Chronic pain syndrome G89.4 [facility] [id number] [place] [address] 89054- 9006 Aug, [facility] [address] 12607- 5797 Aug, Insomnia, unspecified G47.00 [facility] [id number] [place] [address] 91828- 3295 Jul, [facility] [id number] [place] [address] 81276- 5300 Jul, [facility] [id number] [place] [address] 28679- 4901 Jul, Chronic pain syndrome G89.4 [facility] [id number] [place] [address] 16309- 1714 Jun, Chronic pain syndrome G89.4 [facility] [id number] [place] [address] 57072- 6651 04 Jun, 2017 Chronic pain syndrome G89.4 [facility] [id number] [place] [address] 69435- 0105 May, [facility] [id number] [place] [address] 25931- 2764 08 May, 2017 Shortness of breath R06.02 ; Peripheral vascular disease, unspecified I73.9 ; Pain in right knee M25.561 ; Other chronic pain G89.29 ; Chest wall pain R07.89 ; Chronic pain syndrome G89.4 ; Primary insomnia F51.01 and Ear pain, left H92.02 [facility] [address] 90181- 2642 May, Anxiety F41.9 [facility] [id number] [place] [address] 36454- 5090 Apr, Pneumonia due to infectious organism, unspecified laterality , unspecified part of lung J18.9 ; Hypoxia R09.02 ; Bradycardia R00.1 ; History of Clostridium difficile Z87.19 and Primary insomnia F51.01 [facility] [address] 51347- 2477 Apr, Anxiety F41.9 [facility] [address] 92877- 0960 Apr, [facility] [address] 99037- 0575 Mar, Anxiety F41.9 [facility] [address] 74894- 9124 Feb, [facility] [address] 17157- 4341 Feb, [facility] [id number] [place] [address] 06869- 2095 Feb, Abnormal finding on urinalysis R82.90 [facility] [id number] [place] [address] 94926- 2573 Feb, [facility] [id number] [place] [address] 20043- 3978 Feb, Shortness of breath R06.02 ; Tachycardia R00.0 ; Cough R05 ; Ill feeling R68.89 and Abnormal finding on urinalysis R82.90 [facility] [id number] [place] [address] 18239- 7436 Feb, Anxiety F41.9 [facility] [address] [address] Feb, Sore throat J02.9 and Acute diffuse otitis externa of left ear H60.312 [facility] [id number] [place] [address] 61204- 1135 Jan, [facility] [id number] [place] [address] 89585- 5413 Jan, [facility] [id number] [place] [address] [id number] Jan, [facility] [id number] [place] [address] 79781- 5356 Jan, Depression, unspecified depression type F32.9 ; Chronic bronchitis, unspecified chronic bronchitis type J42 ; Chronic pain syndrome G89.4 and Anxiety F41.9 [facility] [id number] [place] [address] 97406- 1484 Jan, [facility] [id number] [place] [address] 28566- 4244 Jan, [facility] [id number] [place] [address] 64210- 9005 Jan, [facility] [id number] [place] [address] [id number] Jan, Chronic pain syndrome G89.4 [facility] [address] [id number] Dec, History of right knee surgery Z98.890 [facility] [id number] [place] [address] 85906- 8330 Dec, [facility] [id number] [place] [address] 84415- 3232 Dec, Chronic pain syndrome G89.4 [facility] [id number] [place] [address] 61237- 3347 November, Anxiety F41.9 [facility] [id number] [place] [address] 14310 -5123 16 Nov, 2016 Acute cystitis without hematuria N30.00 [facility] [id number] [place] [address] 03604 -9468 November, Fever, unspecified fever cause R50.9 and Acute cystitis without hematuria N30.00 [facility] [address] [address]- 3227 November, Chronic pain syndrome G89.4 [facility] [id number] [place] [address] 94038- 1354 Oct, Anxiety F41.9 [facility] [id number] [place] [address] 13873- 1951 Oct, Chronic pain syndrome G89.4 [facility] [id number] [place] [address] 61838- 6406 Oct, Chronic pain syndrome G89.4 [facility] [id number] [place] [address] 75782- 0652 Oct, [facility] [id number] [place] [address] 50468- 0146 Oct, Chronic pain syndrome G89.4 ; Pain in right knee M25.561 ; History of Clostridium difficile Z87.19 ; Iron deficiency anemia, unspecified iron deficiency anemia type D50.9 ; Peripheral vascular disease, unspecified I73.9 and Atrial fibrillation I48.91 [facility] [id number] [place] [address] 89295- 4430 Oct, [facility] [id number] [place] [address] 08692- 2420 Oct, Chronic pain syndrome G89.4 [facility] [id number] [place] [address] 22325- 0448 Sep, [facility] [id number] [place] [address] 87324- 2898 Sep, Depression, unspecified depression type F32.9 ; Chronic bronchitis, unspecified chronic bronchitis type J42 ; Chronic pain syndrome G89.4 and Anxiety F41.9 [employer] [address] [id number] Sep, History of Clostridium difficile infection Z86.19 and History of stroke Z86.73 [facility] [id number] [place] [address] [id number] Sep, Anxiety F41.9 [facility] [id number] [place] [address] 22928- 6527 Sep, Chronic pain syndrome G89.4 [facility] [id number] [place] [address] 17398- 1316 Sep, [facility] [id number] [place] [address] [id number] Sep, [facility] [id number] [place] [address] 36197- 6634 Aug, Anxiety F41.9 [facility] [id number] [place] [address] 74003- 8031 Aug, Anxiety F41.9 [facility] [id number] [place] [address] 46424- 6346 Aug, [facility] [id number] [address]- 5441 Aug, Acute knee pain, unspecified laterality M25.569 [facility] [id number] [place] [address] 77934- 1879 Aug, [facility] [id number] [address]- 1755 Aug, Chronic pain syndrome G89.4 [facility] [id number] [place] [address] 10061- 4321 Aug, [facility] [id number] [address]- 1291 Aug, [facility] [id number] [place] [address] 03603- 4517 Jul, [facility] [id number] [place] [address] 28414- 2510 Jul, Anxiety F41.9 [facility] [id number] [place] [address] 47361- 4709 Jul, Clostridium difficile diarrhea A04.7 [facility] [address] [id number] Jul, Clostridium difficile diarrhea A04.7 ; Chronic pain syndrome G89.4 ; Chronic obstructive pulmon disease w acute lower resp infct J44.0 and Pain in right knee M25.561 [facility] [id number] [place] [address] [id number] Jul, [facility] [id number] [place] [address] 83327 -8977 Jul, Anxiety F41.9 and Chronic pain syndrome G89.4 [facility] [id number] [place] [address] 93698- 2916 Jun, Anxiety F41.9 [facility] [id number] [place] [address] 66135- 2295 Jun, Rheumatoid arthritis 714.0 [facility] [id number] [place] [address] 82072- 4408 Jun, Chronic pain syndrome G89.4 [facility] [id number] [place] [address] 67011- 0678 Jun, [facility] [id number] [place] [address] 56319- 4133 Jun, [facility] [id number] [place] [address] 99262- 3150 Jun, History of pneumonia Z87.01 and History of Clostridium difficile Z87.19 [facility] [id number] [place] [address] 95835- 2234 Jun, [facility] [id number] [address]- 6699 May, [facility] [id number] [place] [address] 27050- 6553 May, Anxiety F41.9 [facility] [id number] [place] [address] 29957- 4838 May, Chronic pain syndrome G89.4 [facility] [id number] [place] [address] 67609- 5997 May, Chronic bronchitis, unspecified chronic bronchitis type J42 [facility] [id number] [place] [address] 60165- 0758 May, [facility] [id number] [place] [address] 13583- 0077 May, C. difficile diarrhea A04.7 ; Peripheral edema R60.9 ; COPD (chronic obstructive pulmonary disease) J44.9 ; Rheumatoid arthritis, involving unspecified site, unspecified rheumatoid factor presence M06.9 ; Pain in right knee M25.561 ; Pain in left knee M25.562 and Other chronic pain G89.29 [facility] [id number] [place] [address] 31012- 4243 May, [facility] [id number] [place] [address] 82934- 9038 May, [facility] [id number] [place] [address] 27305- 7217 May, Anxiety F41.9 [facility] [id number] [place] [address] 54922- 3923 Apr, [facility] [id number] [place] [address] 87550- 7379 Apr, Chronic pain syndrome G89.4 [facility] [id number] [place] [address] 51759- 2293 Apr, Leg pain, left M79.605 [facility] [id number] [address]- 7861 14 Apr, 2016 [facility] [id number] [address]- 8455 11 Apr, 2016 [facility] [id number] [address]- 5522 04 Apr, 2016 [facility] [id number] [place] [address] 13672- 1583 28 Mar, 2016 Chronic pain syndrome G89.4 [facility] [id number] [place] [address] 87840- 7335 22 Mar, 2016 Acute frontal sinusitis, recurrence not specified J01.10 [facility] [id number] [address]- 7268 20 Mar, 2016 Iron deficiency anemia, unspecified iron deficiency anemia type D50.9 ; Rheumatoid arthritis with positive rheumatoid factor, involving unspecified site M05.9 and Depression, unspecified depression type F32.9 [facility] [address] [address]- 0904 13 Mar, 2016 Iron deficiency anemia, unspecified iron deficiency anemia type D50.9 ; Depression, unspecified depression type F32.9 and Rheumatoid arthritis with positive rheumatoid factor, involving unspecified site M05.9 [facility] [address] [address]- 2903 Mar, [facility] [address] [address]- 0444 Mar, [facility] [id number] [address]- 6788 Feb, Chronic pain syndrome G89.4 [facility] [address] [address]- 3348 Feb, 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 ; Status post CVA Z86.73 ; Hemiplegia G81.90 and Anemia, unspecified type D64.9 [facility] [id number] [address]- 2493 Feb, [facility] [id number] [place] [address] 93179- 3759 Feb, Anemia, unspecified type D64.9 [facility] [id number] [address]- 5892 Feb, [facility] [id number] [place] [address] 68305- 9710 Feb, Iron deficiency anemia, unspecified iron deficiency anemia type D50.9 [facility] [id number] [place] [address] 08932- 9313 Feb, [facility] [id number] [place] [address] 57970- 4677 Feb, Chronic bronchitis, unspecified chronic bronchitis type J42 [facility] [id number] [place] [address] 05086- 2751 Feb, Iron deficiency anemia, unspecified iron deficiency anemia type D50.9 [facility] [id number] [address]- 6321 Feb, Chronic pain syndrome G89.4 [facility] [id number] [place] [address] 19370- 1012 Feb, Anemia, unspecified type D64.9 and Hypoxia R09.02 [facility] [id number] [address]- 9436 Feb, Anemia, unspecified type D64.9 [facility] [id number] [address]- 0435 Jan, [facility] [id number] [place] [address] 70873- 5333 Jan, Anemia, unspecified type D64.9 [facility] [id number] [address]- 1309 Jan, [facility] [id number] [address]- 5753 Jan, Anemia, unspecified type D64.9 [facility] [id number] [place] [address] 69765- 6705 Jan, Anemia, unspecified type D64.9 [facility] [id number] [place] [address] 12164- 6291 Jan, [facility] [id number] [place] [address] 55617- 2518 Jan, Anemia, unspecified type D64.9 [facility] [id number] [place] [address] 18408- 5307 Jan, [facility] [id number] [place] [address] 33482- 6457 Jan, [facility] [id number] [place] [address] 43588- 9985 Jan, Chronic pain syndrome G89.4 [facility] [id number] [place] [address] 65625- 2058 Jan, Anemia, unspecified type D64.9 [facility] [id number] [place] [address] 65353- 4894 Jan, Dysthymia F34.1 ; Cervicalgia M54.2 ; Fatigue, unspecified type R53.83 and Depression, unspecified depression type F32.9 [facility] [id number] [address]- 5554 Dec, [facility] [id number] [place] [address] 07349- 8262 Dec, Anxiety F41.9 [facility] [id number] [address]- 0623 Dec, Chronic pain syndrome G89.4 [facility] [id number] [place] [address] 76585- 0785 November, [facility] [id number] [place] [address] 43595- 8032 November, Edema R60.9 and Dizziness R42 [facility] [id number] [place] [address] 49122- 5602 November, [facility] [id number] [place] [address] 04883- 2377 November, [facility] [id number] [place] [address] 65139- 6744 November, COPD (chronic obstructive pulmonary disease) J44.9 ; Increased tracheal secretions J39.8 and Edema R60.9 [facility] [id number] [place] [address] 49759 -2739 Oct, [facility] [id number] [place] [address] 06075 -5482 Oct, Shortness of breath R06.02 and Edema R60.9 [facility] [id number] [place] [address] 96039- 9805 Oct, Chronic bronchitis, unspecified chronic bronchitis type J42 ; Peripheral vascular disease, unspecified I73.9 ; Rheumatoid arthritis M06.9 and Atrial fibrillation I48.91 [facility] [id number] [place] [address] 82376- 8821 Oct, [facility] [id number] [place] [address] 16741- 3133 Oct, [facility] [id number] [place] [address] 06008- 1904 Oct, [facility] [id number] [place] [address] 14448- 5299 Oct, [facility] [id number] [place] [address]155 -[id number] Oct, COPD exacerbation J44.1 [facility] [facility] [id number] [place] [address] 15124- 1283 Sep, [facility] [id number] [address] Sep, [facility] [id number] [place] [address] 02110- 0940 Sep, [facility] [id number] [place] [address] 24627- [id number] Aug, [facility] [id number] [place] [address] 11078- 9369 Aug, 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 and PVD (peripheral vascular disease ) I73.9 [facility] [id number] [place] [address] 16723- 7810 Aug, Bronchitis J40 ; COPD (chronic obstructive pulmonary disease ) J44.9 and Dysthymia F34.1 [facility] [id number] [place] [address] 02769- 4559 Aug, [facility] [id number] [address] Jul, [facility] [id number] [place] [address]25- 6092 Jul, [facility] [id number] [address] 5970 Jul, [facility] [id number] [place] [address] 01236- 0544 Jun, [facility] [id number] [address]- 9519 Jun, [facility] [id number] [place] [address] 63496- 0620 Jun, Peripheral vascular disease I73.9 [facility] [id number] [address] [address] Jun, [facility] [id number] [place] [address] 84999- 2962 Jun, [facility] [id number] [place] [address] 964271- 4894 Jun, Leg pain, left M79.605 ; Dysphagia, unspecified dysphagia R13.10 ; Insomnia, unspecified type G47.00 ; PVD (peripheral vascular disease) I73.9 and 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 [facility] [address] 37962- 2125 May, [facility] [id number] [place] [address] 60823- 1843 May, [facility] [address] 07479- 7439 May, [facility] [id number] [place] [address] 354411- 9416 May, [facility] [id number] [place] [address] 55617- 1859 May, [facility] [id number] [place] [address] 09310- 8561 Apr, [facility] [id number] [place] [address] 82341- 1497 Apr, [facility] [id number] [place] [address] 02286- 9419 Mar, [facility] [id number] [place] [address] [id number]- 1646 Mar, [facility] [id number] [place] [address] 14071- 6706 Feb, [facility] [address] [id number]- 2275 Feb, Nicotine abuse 305.1 ; Arthralgia 719.40 and 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 [facility] [id number] [place] [address] 10440- 2013 Feb, [facility] [address] [facility] [id number] [address]- 3847 Jan, [facility] [id number] [address]- 0063 Jan, [facility] [id number] [address]- 8293 Jan, [facility] [id number] [address]- 1212 Jan, [facility] [id number] [address]- 7011 Jan, 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 ; Rheumatoid arthritis 714.0 ; Hypertension 401.9 ; GERD (gastroesophageal reflux disease) 530.81 ; Nicotine addiction 305.1 and Leukocytosis 288.60 [facility] [id number] [address]- 3273 Jan, [facility] [id number] [address]- 3099 Jan, [facility] [id number] [address]- 2575 Jan, [facility] [id number] [address]- 0808 Jan, [facility] [address] [id number] [address]- 0559 Jan, [facility] [address] [id number] [address]- 2969 Dec, [facility] [address] [id number] 0461 Dec, [facility] [address] [id number] [address]- 2836 Dec, [facility] [address] [id number] [address]- 5693 Dec, [facility] [id number] [place] [address] 93419- 6340 November, [facility] [id number] [place] [address] 01250- 4047 November, [facility] [id number] [place] [address] 17401- 2836 November, Shortness of breath 786.05 [facility] [address] 70135- 9466 November, Rheumatoid arthritis 714.0 [facility] [id number] [place] [address] 62286- 1465 November, 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 [facility] [id number] [place] [address] 81959- 4077 November, Neuropathy 355.9 ; Insomnia 780.52 ; Dysthymia 300.4 ; Shortness of breath 786.05 ; Rheumatoid arthritis 714.0 and Nausea 787.02 [facility] [id number] [place] [address] 51502- 1569 November, [facility] [id number] [place] [address] 93017- 5188 November, [facility] [id number] [place] [address] 38104- 9250 Oct, [facility] [id number] [place] [address] 71260- 2841 Oct, [facility] [id number] [place] [address] 42218- 4888 Oct, [facility] [id number] [place] [address] 06685- 5315 Oct, [facility] [id number] [place] [address] 32304- 1500 Sep, [facility] [id number] [place] [address] 70924- 3132 Sep, [facility] [place] [facility] [address] [id number] [place] [address]- 9689 Sep, [facility] [place] [facility] [address] [id number] [place] [address]- 1025 Sep, [facility] [place] [facility] [address] [id number] [place] 9849 Sep, [facility] [place] [facility] [address] [id number] [place] [address]- 6077 Sep, [facility] [place] [facility] [address] [id number] [place] [address]- 5144 Sep, [facility] [place] [facility] [address] [id number] [place] [address]- 4524 Sep, [facility] [place] [facility] [address] [id number] [place] [address]- 4695 Aug, [facility] [place] [facility] [address] [id number] [place] [address]- 3237 Aug, [facility] [place] [facility] [address] [id number] [place] [address]- 1087 Aug, [facility] [place] [facility] [address] [facility] [id number] [place] [address]- 8514 Aug, [facility] [place] [facility] [address] [facility] [id number] [place] [address]- 2565 Aug, [facility] [place] [facility] [address] [id number] [place] [address]- 3745 Aug, [facility] [place] [facility] [address] [id number] [place] [address]- 6001 Jul, [facility] [place] [facility] [address] [id number] [place] [address]- 8274 Jul, [facility] [place] [facility] [address] [id number] [place] 6008 Jul, [facility] [place] [facility] [address] [id number] [address]- 8200 Jul, [facility] [place] [facility] [address] [id number] [place] [address]- 3814 Jul, [facility] [place] [facility] [address] [id number] [place] [address]- 9745 Jul, [facility] [place] [facility] [address] [id number] [place] [address]- 5759 Jul, [facility] [place] [facility] [address] [id number] [place] [address]- 1896 Jul, [facility] [place] [facility] [address] [id number] [place] [address]- 8464 Jul, [facility] [place] [facility] [address] [id number] [place] [address]- 3469 Jul, [facility] [place] [facility] [address] [id number] [place] [address]- 2857 Jun, [facility] [place] [facility] [address] [id number] [place] [address]- 8143 Jun, [facility] [place] [facility] [address] [id number] [place] [address]- 3323 Jun, [facility] [place] [facility] [address] [id number] [place] [address]- 9309 Jun, [facility] [place] [facility] [address] [id number] [place] [address]- 5192 Jun, [facility] [place] [facility] [address] [id number] [place] [address]- 4036 Jun, [facility] [place] [facility] [address] [id number] [place] [address]- 3495 Jun, [facility] [place] [facility] [address] [id number] [place] [address]- 8561 Jun, [facility] [place] [facility] [address] [id number] [place] [address]- 8442 Jun, [facility] [place] [facility] [address] [id number] [place] [address]- 4312 Jun, [facility] [place] [facility] [address] [id number] [place] [address]- 6692 Jun, [facility] [place] [facility] [address] [id number] [place] 4131 Jun, [facility] [place] [facility] [address] [id number] [place] [address]- 5689 Jun, [facility] [place] [facility] [address] [id number] [place] [address]- 5368 Jun, [facility] [place] [facility] [address] [id number] [place] [address]- 9730 Jun, [facility] [place] [facility] [address] [id number] [place] [address]- 1263 Jun, [facility] [place] [facility] [address] [id number] [place] [address]- 3324 May, [facility] [place] [facility] [address] [id number] [place] [address]- 4088 May, [facility] [place] [facility] [address] [id number] [place] [address]- 4528 May, [facility] [place] [facility] [address] [id number] [place] [address]- 2949 May, [facility] [place] [facility] [address] [id number] [place] [address]- 7330 May, [facility] [place] [facility] [address] [id number] [place] [address]- 5211 May, [facility] [place] [facility] [address] [id number] [place] [address]- 0139 May, [facility] [place] [facility] [address] [id number] [place] 5426 May, [facility] [place] [facility] [address] [id number] [place] [address]- 9812 May, [facility] [place] [facility] [address] [id number] [place] [address]- 7233 Apr, [facility] [place] [facility] [address] [id number] [place] [address]- 0273 Apr, [facility] [place] [facility] [address] [id number] [place] [address]- 0624 Apr, [facility] [place] [facility] [address] [id number] [place] [address]- 1573 Apr, [facility] [place] [facility] [address] [id number] [place] [address]- 1366 Apr, [facility] [place] [facility] [address] [id number] [place] [address]- 6866 Apr, [facility] [place] [facility] [address] [id number] [place] [address]- 4360 Apr, [facility] [place] [facility] [address] [id number] [place] [address]- 5518 Apr, [facility] [place] [facility] [address] [id number] [place] [address]- 0510 Apr, [facility] [place] [facility] [address] [id number] [address]- 1564 Apr, [facility] [place] [facility] [address] [id number] [address]- 7750 Apr, [facility] [place] [facility] [address] [id number] [place] [address]- 9353 Apr, [facility] [place] [facility] [address] [id number] [place] [address]- 6525 Mar, [facility] [place] [facility] [address] [id number] [place] [address]- 1931 Mar, [facility] [place] [facility] [address] [id number] [place] [address]- 1063 Mar, [facility] [place] [facility] [address] [id number] [place] [address]- 6432 19 Mar, 2013 [facility] [place] [facility] [address] [id number] [place] [address]- 9018 11 Mar, 2013 [facility] [place] [facility] [address] [id number] [place] [address]- 0896 Mar, 2013 [facility] [place] [facility] [address] [id number] [place] [address]- 5996 Mar, 2013 [facility] [place] [facility] [address] [id number] [place] [address]- 8468 Mar, 2013 [facility] [place] [facility] [address] [id number] [place] [address]- 9908 Mar, [facility] [place] [facility] [address] [id number] [place] [address]- 7256 Mar, [facility] [place] [facility] [address] [id number] [place] [address]- 8552 Feb, [facility] [place] [facility] [address] [id number] [place] [address]- 6891 Feb, [facility] [place] [facility] [address] [id number] [place] [address]- 4935 Feb, [facility] [place] [facility] [address] [id number] [place] [address]- 6478 Feb, [facility] [place] [facility] [address] [id number] [place] [address]- 2535 Feb, [facility] [place] [facility] [address] [id number] [place] [address]- 2548 Feb, [facility] [place] [facility] [address] [id number] [place] [address]- 0433 Feb, [facility] [place] [facility] [address] [id number] [place] [address]- 8780 Feb, [facility] [place] [facility] [address] [id number] [place] [address]- 6425 Feb, [facility] [place] [facility] [address] [id number] [place] [address]- 1765 Feb, [facility] [place] [facility] [address] [id number] [place] [address]- 5709 Feb, [facility] [place] [facility] [address] [id number] [place] [address]- 9788 Feb, [facility] [place] [facility] [address] [id number] [place] [address]- 0036 Feb, [facility] [place] [facility] [address] [id number] [place] [address]- 9828 Feb, [facility] [place] [facility] [address] [id number] [place] [address]- 1098 Feb, [facility] [place] [facility] [address] [id number] [place] [address]- 4209 Feb, [facility] [place] [facility] [address] [id number] [place] [address]- 2775 Jan, [facility] [place] [facility] [address] [id number] [place] [address]- 3761 Jan, [facility] [place] [facility] [address] [id number] [place] [address]- 8258 Jan, [facility] [place] [facility] [address] [id number] [place] [address]- 4352 Jan, [facility] [place] [facility] [address] [id number] [place] [address]- 5260 Jan, [facility] [place] [facility] [address] [id number] [place] [address]- 3106 Jan, [facility] [place] [facility] [address] [id number] [place] [address]- 5875 Dec, [facility] [place] [facility] [address] [id number] [place] [address]- 6325 Dec, [facility] [place] [facility] [address] [id number] [place] [address]- 3422 Dec, [facility] [place] [facility] [address] [id number] [place] [address]- 8064 Dec, [facility] [place] [facility] [address] [id number] [place] [address]- 7227 Dec, [facility] [place] [facility] [address] [id number] [place] [address]- 4596 Dec, [facility] [place] [facility] [address] [id number] [place] [address]- 4262 Dec, [facility] [place] [facility] [address] [id number] [place] [address]- 6623 Dec, [facility] [place] [facility] [address] [id number] [place] [address]- 6782 November, [facility] [place] [facility] [address] [id number] [place] [address]- 7692 November, [facility] [place] [facility] [address] [id number] [place] [address]- 2225 November, [facility] [place] [facility] [address] [id number] [place] [address]- 5351 November, [facility] [place] [facility] [address] [id number] [place] [address]- 6887 November, [facility] [place] [facility] [address] [id number] [place] [address]- 6896 November, [facility] [place] [facility] [address] [id number] [place] [address]- 6250 Oct, [facility] [place] [facility] [address] [id number] [place] [address]- 2669 Oct, [facility] [place] [facility] [address] [id number] [place] [address]- 1322 Oct, [facility] [place] [facility] [address] [id number] [place] [address]- 0081 Oct, [facility] [place] [facility] [address] [id number] [place] [address]- 1521 Sep, [facility] [place] [facility] [address] [id number] [place] [address]- 4673 Sep, [facility] [place] [facility] [address] [id number] [place] [address]- 0890 Sep, [facility] [place] [facility] [address] [id number] [place] [address]- 9719 Sep, [facility] [place] [facility] [address] [id number] [place] [address]- 7577 Sep, [facility] [place] [facility] [address] [id number] [place] [address]- 1960 Sep, [facility] [place] [facility] [address] [id number] [place] [address]- 6412 Aug, [facility] [place] [facility] [address] [id number] [place] [address]- 6544 Aug, [facility] [place] [facility] [address] [id number] [place] [address]- 8163 Aug, [facility] [place] [facility] [address] [id number] [place] [address]- 8036 Aug, [facility] [place] [facility] [address] [facility] [id number] [place] [address]- 8293 Aug, [facility] [place] [facility] [address] [id number] [place] [address]- 1276 Aug, [facility] [place] [facility] [address] [id number] [place] [address]- 5983 Jul, [facility] [place] [facility] [address] [id number] [place] [address]- 3594 Jul, [facility] [place] [facility] [address] [id number] [place] [address]- 3231 Jul, [facility] [place] [facility] [address] [id number] [place] [address]- 9881 Jul, [facility] [address] [id number] [place] [address]- 4497 Jul, [facility] [place] [facility] [address] [id number] [place] [address]- 5350 Jul, [facility] [place] [facility] [address] [id number] [place] [address]- 8763 Jul, [facility] [place] [facility] [address] [id number] [place] [address]- 2766 Jul, [facility] [place] [facility] [address] [id number] [place] [address]- 0124 Jul, [facility] [place] [facility] [address] [id number] [place] [address]- 9433 Jul, [facility] [place] [facility] [address] [id number] [place] [address]- 8308 Jul, [facility] [place] [facility] [address] [id number] [place] [address]- 1901 Jul, [facility] [place] [facility] [address] [id number] [place] [address]- 6948 Jul, [facility] [place] [facility] [address] [id number] [place] [address]- 5186 Jul, [facility] [place] [facility] [address] [id number] [address]- 0984 Jul, [facility] [place] [facility] [address] [id number] [address]- 3414 Jun, [facility] [place] [facility] [address] [id number] [place] [address]- 6094 Jun, [facility] [place] [facility] [address] [id number] [place] [address]- 4860 Jun, [facility] [place] [facility] [address] [id number] [place] [address] Jun, [facility] [place] [facility] [id number] [address] May, [facility] [id number] [address] May, [facility] [id number] [id number] May, [facility] [id number] [address] May, [facility] [id number] [address] May, [facility] [id number] [place] [address] May, [facility] [id number] [address] May, [facility] [id number] [place] [address] May, [facility] [id number] [address] May, [facility] [id number] [place] [id number] May, [facility] [id number] [address] May, [facility] [id number] [id number] May, [facility] [id number] [address] May, [facility] [id number] [id number] May, [facility] [id number] [address] May, IMMUNIZATIONS No Known Immunizations SOCIAL HISTORY Never Assessed REASON FOR VISIT O2 order PLAN OF CARE VITAL SIGNS MEDICATIONS Unknown [...] leukocytosis--[facility] 01/08/16 Hospitalization History pseudomemranous colitis, sepsis--[facility] 04/21/2016 Hospitalization History C Diff--[facility] 05/10/2016 Hospitalization History sepsis, pneumonia, diarrhea--[facility] 06/11/16 Hospitalization History recurrent cdiff, pneumonia-[facility] 07/22/16 Hospitalization History sepsis,pneumonia- [facility]
--- OUTSIDE RECORDS SUMMARY | 2018-03-18 20:07 | XMS REPORT ---
Author Author DAPHNE YUSUF Organization [facility] Address [address] [place] [address] Care Team Providers Care Bottle Carrier Name Role Phone DAPHNE YUSUF Unavailable PROBLEMS Type Condition ICD9-CM Code [id number] Code Onset Dates Condition Status SNOMED Code Problem Hx of Clostridium difficile infection Z86.19 Active 035933920 Problem History of arthroplasty of right knee Z96.651 Active 447857899 Problem Dysphagia, unspecified dysphagia R13.10 Active 44058143 Problem Chronic pain syndrome G89.4 Active 128300108 Problem 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 954355897 Problem Anxiety F41.9 Active 28106042 Problem Leg pain, left M79.605 Active 636116264 Problem Depression, unspecified depression type F32.9 Active 45438340 Problem Iron deficiency anemia, unspecified iron deficiency anemia type D50.9 Active 04634667 Problem Anemia, unspecified type D64.9 Active 456452448 Problem Seasonal allergic rhinitis due to pollen J30.1 Active 19732864 Problem Insomnia, unspecified G47.00 Active 102282201 Problem 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 688295470 Problem History of cerebrovascular accident with current residual effects I69.90 Active 011660867 Problem Peripheral vascular disease, unspecified I73.9 Active 863606485 Problem Rheumatoid arthritis, involving unspecified site, unspecified rheumatoid factor presence M06.9 Active 41529372 Problem Other chronic pain G89.29 Active 41305104 Problem Primary insomnia F51.01 Active 1831914 Problem Chronic obstructive pulmon disease w acute lower resp infct J44.0 Active 854279543 Problem Atrial fibrillation I48.91 Active 76834852 Problem Dysthymia F34.1 Active 59469941 Problem Osteoarthritis of foot M19.079 Active 221861750 Problem Rheumatoid arthritis M06.9 Active 79415467 Problem Tobacco abuse, 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 918767728 Problem Edema R60.9 Active 166278164 Problem COPD (chronic obstructive pulmonary disease) J44.9 Active 62346321 Problem Hypertension I10 Active 01135052 ALLERGIES No Information ENCOUNTERS Encounter Location Date Diagnosis [facility] [id number] [place] [address] 28590- 7772 Jan, Chronic pain syndrome G89.4 [facility] [id number] [place] [address] 21985- 0757 Jan, [facility] [id number] [place] [address] 68324- 6407 Dec, Chronic pain syndrome G89.4 [facility] [address] 67565- 0056 November, Chronic pain syndrome G89.4 [facility] [id number] [place] [address] 32740- 2108 November, [facility] [id number] [place] [address] 61688- 3748 Oct, Chronic pain syndrome G89.4 [facility] [id number] [place] [address] 35925- 2596 Oct, [facility] [id number] [place] [address] 31053- 6880 Oct, Chronic pain syndrome G89.4 [facility] [id number] [place] [address] 93421- 5099 Oct, [facility] [id number] [place] [address] 85433- 8332 Oct, [facility] [id number] [place] [address] 04632- 4284 Sep, Left upper quadrant pain R10.12 ; Chronic pain syndrome G89.4 ; Left lower quadrant pain R10.32 ; Other chronic pain G89.29 ; Sacrococcygeal disorders, not elsewhere classified M53.3 and Seasonal allergic rhinitis due to pollen J30.1 [facility] [address] [address] 9554 Sep, Chronic pain syndrome G89.4 [facility] [id number] [place] [address] 13614- 6636 Sep, [facility] [address] [address] 2486 Aug, Chronic pain syndrome G89.4 [facility] [id number] [place] [address] 15859- 2176 Aug, [facility] [id number] [place] [address] 42143- 6866 Aug, Insomnia, unspecified G47.00 [facility] [id number] [place] [address] 35888- 6445 Jul, [facility] [id number] [place] [address] 80450- 0670 Jul, [facility] [address] [address]- 7812 Jul, Chronic pain syndrome G89.4 [facility] [address] [address]- 3771 Jun, Chronic pain syndrome G89.4 [facility] [address] [address]- 5881 Jun, Chronic pain syndrome G89.4 [facility] [address] [address]- 5071 May, [facility] [address] [address]- 4730 May, Shortness of breath R06.02 ; Peripheral vascular disease, unspecified I73.9 ; Pain in right knee M25.561 ; Other chronic pain G89.29 ; Chest wall pain R07.89 ; Chronic pain syndrome G89.4 ; Primary insomnia F51.01 and Ear pain, left H92.02 [facility] [id number] [place] [address] 50470- 9245 May, Anxiety F41.9 [facility] [address] 07613- 7848 Apr, Pneumonia due to infectious organism, unspecified laterality , unspecified part of lung J18.9 ; Hypoxia R09.02 ; Bradycardia R00.1 ; History of Clostridium difficile Z87.19 and Primary insomnia F51.01 [facility] [address] 44583- 0396 Apr, Anxiety F41.9 [facility] [address] 83152- 6633 Apr, [facility] [address] 29469- 9094 Mar, Anxiety F41.9 [facility] [address] 17457- 4311 Feb, [facility] [address] 14589- 1721 Feb, [facility] [address] 31503- 8490 Feb, Abnormal finding on urinalysis R82.90 [facility] [address] 15883- 9945 Feb, [facility] [address] 14664- 2196 Feb, Shortness of breath R06.02 ; Tachycardia R00.0 ; Cough R05 ; Ill feeling R68.89 and Abnormal finding on urinalysis R82.90 [facility] [address] 77499- 3822 Feb, Anxiety F41.9 [facility] [id number] [place] [address] 33951 -5784 Feb, Sore throat J02.9 and Acute diffuse otitis externa of left ear H60.312 [facility] [id number] [place] [address] 60257- 8165 Jan, [facility] [id number] [place] [address] 47677- 1965 Jan, [facility] [id number] [place] [address] [id number] Jan, [facility] [id number] [place] [address] 02775- 3262 Jan, Depression, unspecified depression type F32.9 ; Chronic bronchitis, unspecified chronic bronchitis type J42 ; Chronic pain syndrome G89.4 and Anxiety F41.9 [facility] [id number] [place] [address] 66107- 4140 Jan, [facility] [id number] [place] [address] 93565- 6283 Jan, [facility] [id number] [place] [address] 56434- 9485 Jan, [facility] [id number] [place] [address] [id number] Jan, Chronic pain syndrome G89.4 [facility] [address] [place] [id number] Dec, History of right knee surgery Z98.890 [facility] [id number] [place] [address] 58884- 7863 Dec, [facility] [id number] [place] [address] 38875- 7877 Dec, Chronic pain syndrome G89.4 [facility] [id number] [place] [address] 56545- 6155 November, Anxiety F41.9 [facility] [id number] [place] [address] 81583 -1016 November, Acute cystitis without hematuria N30.00 [facility] [id number] [place] [address] 08896 -4403 November, Fever, unspecified fever cause R50.9 and Acute cystitis without hematuria N30.00 [facility] [id number] [place] [address] 20000- 3859 November, Chronic pain syndrome G89.4 [facility] [id number] [place] [address] 98075- 1225 Oct, Anxiety F41.9 [facility] [id number] [place] [address] 65329- 2883 Oct, Chronic pain syndrome G89.4 [facility] [id number] [place] [address] 45733- 0440 Oct, Chronic pain syndrome G89.4 [facility] [id number] [place] [address] 82524- 1387 Oct, [facility] [id number] [place] [address] 52391- 9763 Oct, Chronic pain syndrome G89.4 ; Pain in right knee M25.561 ; History of Clostridium difficile Z87.19 ; Iron deficiency anemia, unspecified iron deficiency anemia type D50.9 ; Peripheral vascular disease, unspecified I73.9 and Atrial fibrillation I48.91 [facility] [id number] [place] [address] 12391- 1925 Oct, [facility] [id number] [place] [address] 82748- 4559 Oct, Chronic pain syndrome G89.4 [facility] [id number] [place] [address] 17469- 6813 Sep, [facility] [id number] [place] [address] 19650- 3981 Sep, Depression, unspecified depression type F32.9 ; Chronic bronchitis, unspecified chronic bronchitis type J42 ; Chronic pain syndrome G89.4 and Anxiety F41.9 [facility] [address] [id number] Sep, History of Clostridium difficile infection Z86.19 and History of stroke Z86.73 [facility] [id number] [place] [address] [id number] Sep, Anxiety F41.9 [facility] [address], [place] [address] 2546 08 Sep, 2016 Chronic pain syndrome G89.4 [facility] [id number] [place] [address] 79752 2546 Sep, [facility] [id number] [place] [address] [id number] Sep, [facility] [id number] [place] [address] 06270- 6796 Aug, Anxiety F41.9 [facility] [id number] [place] [address] 59491- 0706 Aug, Anxiety F41.9 [facility] [id number] [place] [address] 02674 2540 16 Aug, 2016 [facility] [id number] [place] [address] 42703- 7655 14 Aug, 2016 Acute knee pain, unspecified laterality M25.569 [facility] [address], [place] [address]- 9269 13 Aug, 2016 [facility] [address] [address]- 2547 09 Aug, 2016 Chronic pain syndrome G89.4 [facility] [address] [address] 2546 Aug, [facility] [id number] [place] [address] 60192 2546 Aug, [facility] [address], [place] [address] 2546 Jul, [facility] [id number] [place] [address] 76449- 4311 Jul, Anxiety F41.9 [facility] [id number] [place] [address] 24519- 8976 Jul, Clostridium difficile diarrhea A04.7 [facility] [address] [place] [id number] Jul, Clostridium difficile diarrhea A04.7 ; Chronic pain syndrome G89.4 ; Chronic obstructive pulmon disease w acute lower resp infct J44.0 and Pain in right knee M25.561 [facility] [id number] [place] [address] [id number] Jul, [facility] [id number] [place] [address] 66378 -6765 Jul, Anxiety F41.9 and Chronic pain syndrome G89.4 [facility] [id number] [place] [address] 87855- 9087 Jun, Anxiety F41.9 [facility] [id number] [place] [address] 49232- 9375 Jun, Rheumatoid arthritis 714.0 [facility] [id number] [place] [address] 71023- 7704 Jun, Chronic pain syndrome G89.4 [facility] [id number] [place] [address] 59927- 8253 Jun, [facility] [id number] [place] [address] 92420- 5128 Jun, [facility] [id number] [place] [address] 18913- 3116 Jun, History of pneumonia Z87.01 and History of Clostridium difficile Z87.19 [facility] [id number] [place] [address] 60038- 4454 Jun, [facility] [address], [place] [address]- 2954 May, [facility] [id number] [place] [address] 13317- 5319 May, Anxiety F41.9 [facility] [id number] [place] [address] 10376- 6146 May, Chronic pain syndrome G89.4 [facility] [id number] [place] [address] 76431- 7446 May, Chronic bronchitis, unspecified chronic bronchitis type J42 [facility] [id number] [place] [address] 63576- 2716 May, [facility] [id number] [place] [address] 51637- 4841 May, C. difficile diarrhea A04.7 ; Peripheral edema R60.9 ; COPD (chronic obstructive pulmonary disease) J44.9 ; Rheumatoid arthritis, involving unspecified site, unspecified rheumatoid factor presence M06.9 ; Pain in right knee M25.561 ; Pain in left knee M25.562 and Other chronic pain G89.29 [facility] [id number] [place] [address] 52152 2546 May, [facility] [id number] [place] [address] 65086- 9473 May, [facility] [id number] [place] [address] 75066- 6503 May, Anxiety F41.9 [facility] [id number] [place] [address] 66449 2546 Apr, [facility] [id number] [place] [address] 71806 2546 Apr, Chronic pain syndrome G89.4 [facility] [id number] [place] [address] 03622 2546 Apr, Leg pain, left M79.605 [facility] [id number] [place] [address] 67587 2546 Apr, [facility] [address] [address]- 3818 Apr, [facility] [id number] [place] [address] 77565- 6477 Apr, [facility] [id number] [place] [address] 53075- 3300 Mar, Chronic pain syndrome G89.4 [facility] [id number] [place] [address] 35919- 3685 Mar, Acute frontal sinusitis, recurrence not specified J01.10 [facility] [id number] [place] [address] 60314- 6022 20 Mar, 2016 Iron deficiency anemia, unspecified iron deficiency anemia type D50.9 ; Rheumatoid arthritis with positive rheumatoid factor, involving unspecified site M05.9 and Depression, unspecified depression type F32.9 [facility] [id number] [place] [address] 24295- 1638 Mar, Iron deficiency anemia, unspecified iron deficiency anemia type D50.9 ; Depression, unspecified depression type F32.9 and Rheumatoid arthritis with positive rheumatoid factor, involving unspecified site M05.9 [facility] [id number] [place] [address] 75594- 3117 Mar, [facility] [id number] [place] [address] 42522- 0090 Mar, [facility] [id number] [place] [address] 20241- 6918 Feb, Chronic pain syndrome G89.4 [facility] [id number] [place] [address] 83169- 8618 Feb, 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 ; Status post CVA Z86.73 ; Hemiplegia G81.90 and Anemia, unspecified type D64.9 [facility] [id number] [place] [address] 52850- 8029 Feb, [facility] [id number] [place] [address] 91228- 3880 Feb, Anemia, unspecified type D64.9 [facility] [id number] [place] [address] 95178- 1913 Feb, [facility] [id number] [place] [address] 92413- 5280 Feb, Iron deficiency anemia, unspecified iron deficiency anemia type D50.9 [facility] [id number] [place] [address] 14444- 4361 Feb, [facility] [id number] [place] [address] 91534- 1845 Feb, Chronic bronchitis, unspecified chronic bronchitis type J42 [facility] [id number] [place] [address] 35025- 7423 Feb, Iron deficiency anemia, unspecified iron deficiency anemia type D50.9 [facility] [id number] [place] [address] 47029- 5686 Feb, Chronic pain syndrome G89.4 [facility] [id number] [place] [address] 21308- 5293 Feb, Anemia, unspecified type D64.9 and Hypoxia R09.02 [facility] [id number] [place] [address] 58491- 8458 Feb, Anemia, unspecified type D64.9 [facility] [id number] [place] [address] 60471- 0854 Jan, [facility] [id number] [place] [address] 79954- 1265 Jan, Anemia, unspecified type D64.9 [facility] [id number] [place] [address] 93707- 3902 Jan, [facility] [id number] [place] [address] 27032- 6883 Jan, Anemia, unspecified type D64.9 [facility] [address] [address]- 9986 Jan, Anemia, unspecified type D64.9 [facility] [id number] [place] [address] 47550- 1990 Jan, [facility] [id number] [place] [address] 32796- 6457 Jan, Anemia, unspecified type D64.9 [facility] [id number] [place] [address] 14005- 4244 Jan, [facility] [id number] [place] [address] 33625- 3040 Jan, [facility] [id number] [place] [address] 30672- 8263 Jan, Chronic pain syndrome G89.4 [facility] [id number] [place] [address] 52797- 8758 Jan, Anemia, unspecified type D64.9 [facility] [id number] [place] [address] 61174- 2525 Jan, Dysthymia F34.1 ; Cervicalgia M54.2 ; Fatigue, unspecified type R53.83 and Depression, unspecified depression type F32.9 [facility] [id number] [place] [address] 53806- 5596 Dec, [facility] [id number] [place] [address] 60565- 4988 Dec, Anxiety F41.9 [facility] [id number] [place] [address] 24882- 0703 Dec, Chronic pain syndrome G89.4 [facility] [id number] [place] [address] 97044- 1754 November, [facility] [id number] [place] [address] 77220- 6929 November, Edema R60.9 and Dizziness R42 [facility] [id number] [place] [address] 88496- 1438 November, [facility] [id number] [place] [address] 07793- 1853 November, [facility] [id number] [place] [address] 32336- 1767 November, COPD (chronic obstructive pulmonary disease) J44.9 ; Increased tracheal secretions J39.8 and Edema R60.9 [facility] [id number] [place] [address] 84599 -5631 Oct, [facility] [address] 92871 -2474 Oct, Shortness of breath R06.02 and Edema R60.9 [facility] [id number] [place] [address] 95979- 8188 Oct, Chronic bronchitis, unspecified chronic bronchitis type J42 ; Peripheral vascular disease, unspecified I73.9 ; Rheumatoid arthritis M06.9 and Atrial fibrillation I48.91 [facility] [id number] [place] [address] 79722- 7278 Oct, [facility] [id number] [place] [address] 01119- 3008 Oct, [facility] [id number] [place] [address] [phone]- [phone] Oct, [facility] [id number] [place] [address] [phone]- [phone] Oct, [facility] [id number] [place] [address] [phone] -[phone] Oct, COPD exacerbation J44.1 [facility] [id number] [place] [address] [phone] Sep, [facility] [id number] [place] [address] [phone]- [phone] Sep, [facility] [id number] [address] Sep, [facility] [id number] [place] [address] [phone]- [phone] Aug, [facility] [id number] [place] [address] [phone] Aug, 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 and PVD (peripheral vascular disease ) I73.9 [facility] [id number] [place] [address] 31848- [phone] Aug, Bronchitis J40 ; COPD (chronic obstructive pulmonary disease ) J44.9 and Dysthymia F34.1 [facility] [id number] [place] [address] 28545- [phone] Aug, [facility] [id number] [place] [address] [phone]- [phone] Jul, [facility] [id number] [place] [address] [phone]- [phone] Jul, [facility] [id number] [place] [address] [phone]- [phone] Jul, [facility] [id number] [address] Jun, [facility] [id number] [place] [address] 66502- [phone] Jun, [facility] [id number] [address] Jun, Peripheral vascular disease I73.9 [facility] [id number] [place] [address], [place] [address]- 9675 Jun, [facility] [id number] [address] Jun, [facility] [id number] [place] [address] 92801- 3860 Jun, Leg pain, left M79.605 ; Dysphagia, unspecified dysphagia R13.10 ; Insomnia, unspecified type G47.00 ; PVD (peripheral vascular disease) I73.9 and 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 [facility] [address] [id number] [place] [address] 27610- 1322 May, [facility] [id number] [place] [address] 31609- 6648 May, [facility] [id number] [place] [address] 16141- 7025 May, [facility] [id number] [place] [address] 64290- 6170 May, [facility] [id number] [place] [address] 08615- 5437 May, [facility] [id number] [place] [address] 63065- 5254 Apr, [facility] [id number] [place] [address] 60985- 2944 Apr, [facility] [id number] [place] [address] 54512- 3420 Mar, [facility] [id number] [place] [address] 10509- 6054 Mar, [facility] [id number] [place] [address] 78763- 8405 Feb, [facility] [id number] [place] [address] 20485- 8518 Feb, Nicotine abuse 305.1 ; Arthralgia 719.40 and 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 [facility] [id number] [place] [address] 990173- 8496 Feb, [facility] [id number] [place] [address] [id number]- 2066 Jan, [facility] [id number] [address]- 1578 16 Jan, 2014 [facility] [id number] [address]- 7336 Jan, [facility] [id number] [address]- 5225 Jan, [facility] [id number] [place] [address] 86081- 4296 Jan, 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 ; Rheumatoid arthritis 714.0 ; Hypertension 401.9 ; GERD (gastroesophageal reflux disease) 530.81 ; Nicotine addiction 305.1 and Leukocytosis 288.60 [facility] [id number] [address]- 0720 Jan, 2014 [facility] [id number] [address]- 9336 Jan, [facility] [id number] [address]- 8708 Jan, [facility] [id number] [address]- 6855 Jan, [facility] [id number] [address]- 5049 Jan, [facility] [id number] [address]- 8383 Dec, [facility] [id number] [address]- 8344 Dec, [facility] [id number] [address]- 4920 Dec, [facility] [id number] [address]- 0519 Dec, [facility] [id number] [address]- 6667 November, [facility] [id number] [place] [address] [id number]- 4787 November, [facility] [id number] [place] [address] 800649- 2684 November, Shortness of breath 786.05 [facility] [id number] [place] [address] 26886- 9388 November, Rheumatoid arthritis 714.0 [facility] [id number] [place] [address] 47658- 6653 November, 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 [facility] [id number] [place] [address] 867166- 3400 November, Neuropathy 355.9 ; Insomnia 780.52 ; Dysthymia 300.4 ; Shortness of breath 786.05 ; Rheumatoid arthritis 714.0 and Nausea 787.02 [facility] [id number] [place] [address] 46815- 1384 November, [facility] [id number] [place] [address] 30659- 4279 November, [facility] [id number] [place] [address] 79140- 3923 Oct, [facility] [id number] [place] [address] 18349- 9096 Oct, [facility] [id number] [address]- 2944 Oct, [facility] [id number] [place] [address] 59431- 1146 Oct, [facility] [id number] [place] [address] 68499- 8542 Sep, [facility] [id number] [place] [address] 04880- 5522 Sep, [facility] [id number] [address]- 5656 Sep, [facility] [id number] [place] [address]- 5251 Sep, [facility] [place] [facility] [address] [id number] [place] [address]- 1741 Sep, [facility] [place] [facility] [address] [id number] [place] [address]- 4316 Sep, [facility] [place] [facility] [address] [id number] [place] [address]- 1835 Sep, [facility] [place] [facility] [address] [id number] [place] [address]- 5575 Sep, [facility] [place] [facility] [address] [id number] [place] [address]- 6072 Aug, [facility] [place] [facility] [address] [id number] [place] [address]- 0952 Aug, [facility] [place] [facility] [address] [id number] [place] [address]- 6690 Aug, [facility] [place] [facility] [address] [id number] [place] [address]- 6192 Aug, [facility] [place] [facility] [address] [id number] [place] [address]- 7393 Aug, [facility] [place] [facility] [address] [facility] [id number] [place] [address]- 1665 Aug, [facility] [place] [facility] [address] [id number] [place] [address]- 1587 Jul, [facility] [place] [facility] [address] [id number] [place] [address]- 1420 Jul, [facility] [place] [facility] [address] [id number] [place] [address]- 7970 Jul, [facility] [place] [facility] [address] [id number] [place] [address]- 7506 Jul, [facility] [place] [facility] [address] [facility] [id number] [place] [address]- 2282 Jul, [facility] [place] [facility] [address] [id number] [place] [address]- 4280 Jul, [facility] [place] [facility] [address] [id number] [place] [address]- 7820 Jul, [facility] [place] [facility] [address] [id number] [place] [address]- 5957 Jul, [facility] [place] [facility] [address] [id number] [place] [address]- 0686 Jul, [facility] [place] [facility] [address] [id number] [place] [address]- 2357 Jul, [facility] [place] [facility] [address] [id number] [place] [address]- 5508 Jun, [facility] [place] [facility] [address] [id number] [place] [address]- 1289 Jun, [facility] [place] [facility] [address] [id number] [place] [address]- 2647 Jun, [facility] [place] [facility] [address] [id number] [place] [address]- 0343 Jun, [facility] [place] [facility] [address] [id number] [place] [address]- 1410 Jun, [facility] [place] [facility] [address] [id number] [place] [address]- 6846 Jun, [facility] [place] [facility] [address] [id number] [place] [address]- 7707 Jun, [facility] [place] [facility] [address] [id number] [place] [address]- 2388 Jun, [facility] [place] [facility] [address] [id number] [place] [address]- 6592 Jun, [facility] [place] [facility] [address] [id number] [place] [address]- 8954 Jun, [facility] [place] [facility] [address] [id number] [place] [address]- 9810 08 Jun, 2014 [facility] [place] [facility] [address] [id number] [place] [address]- 4001 08 Jun, 2014 [facility] [place] [facility] [address] [id number] [place] 5963 Jun, [facility] [place] [facility] [address] [id number] [place] [address]- 3256 Jun, [facility] [place] [facility] [address] [id number] [place] [address]- 0793 Jun, [facility] [place] [facility] [address] [id number] [place] [address]- 3874 Jun, [facility] [place] [facility] [address] [id number] [place] [address]- 0532 May, [facility] [place] [facility] [address] [id number] [place] [address]- 2296 May, [facility] [place] [facility] [address] [id number] [place] [address]- 6733 May, [facility] [place] [facility] [address] [id number] [place] [address]- 9621 May, [facility] [place] [facility] [address] [facility] [id number] [place] [address]- 9524 May, [facility] [place] [facility] [address] [id number] [place] [address]- 4792 May, [facility] [place] [facility] [address] [id number] [place] [address]- 9655 May, [facility] [place] [facility] [address] [id number] [place] [address]- 9215 May, [facility] [place] [facility] [address] [id number] [place] [address]- 3041 May, [facility] [place] [facility] [address] [id number] [place] [address]- 1993 Apr, [facility] [place] [facility] [address] [id number] [place] [address]- 3816 Apr, [facility] [place] [facility] [address] [id number] [place] [address]- 6300 Apr, [facility] [place] [facility] [address] [id number] [place] [address]- 1235 Apr, [facility] [place] [facility] [address] [id number] [place] [address]- 2947 Apr, [facility] [place] [facility] [address] [id number] [place] [address]- 1931 Apr, [facility] [place] [facility] [address] [id number] [place] [address]- 6977 Apr, [facility] [place] [facility] [address] [id number] [place] [address]- 7602 Apr, [facility] [place] [facility] [address] [id number] [place] [address]- 8540 Apr, [facility] [place] [facility] [address] [id number] [place] [address]- 4873 Apr, [facility] [place] [facility] [address] [id number] [place] [address]- 4018 Apr, [facility] [place] [facility] [address] [id number] [place] [address]- 8978 Apr, [facility] [place] [facility] [address] [id number] [place] [address]- 2048 Mar, [facility] [place] [facility] [address] [id number] [place] [address]- 1478 Mar, [facility] [place] [facility] [address] [id number] [place] [address]- 0543 Mar, [facility] [place] [facility] [address] [id number] [place] [address]- 4582 Mar, [facility] [place] [facility] [address] [id number] [place] [address]- 9985 Mar, [facility] [place] [facility] [address] [id number] [place] [address]- 4339 Mar, [facility] [place] [facility] [address] [id number] [place] [address]- 3011 Mar, [facility] [place] [facility] [address] [id number] [place] [address]- 0182 Mar, [facility] [place] [facility] [address] [id number] [place] [address]- 5834 Mar, [facility] [place] [facility] [address] [id number] [place] [address]- 7031 Mar, [facility] [place] [facility] [address] [id number] [place] [address]- 9347 Feb, [facility] [place] [facility] [address] [id number] [place] [address]- 3170 Feb, [facility] [place] [facility] [address] [id number] [place] [address]- 3734 Feb, [facility] [place] [facility] [address] [id number] [place] [address]- 3489 Feb, [facility] [place] [facility] [address] [id number] [place] [address]- 6778 Feb, [facility] [place] [facility] [address] [id number] [place] [address]- 1714 Feb, [facility] [place] [facility] [address] [id number] [place] [address]- 9761 Feb, [facility] [place] [facility] [address] [id number] [place] [address]- 0853 Feb, [facility] [place] [facility] [address] [id number] [place] [address]- 5609 Feb, [facility] [place] [facility] [address] [id number] [place] [address]- 2608 Feb, [facility] [place] [facility] [address] [id number] [place] [address]- 3958 Feb, [facility] [place] [facility] [address] [id number] [place] [address]- 0882 Feb, [facility] [place] [facility] [address] [id number] [place] [address]- 4834 Feb, [facility] [place] [facility] [address] [id number] [place] [address]- 0955 Feb, [facility] [place] [facility] [address] [id number] [place] [address]- 0784 Feb, [facility] [place] [facility] [address] [id number] [place] [address]- 9796 Feb, [facility] [place] [facility] [address] [id number] [place] [address]- 3306 Jan, [facility] [place] [facility] [address] [id number] [place] [address]- 4131 Jan, [facility] [place] [facility] [address] [id number] [place] [address]- 0529 Jan, [facility] [place] [facility] [address] [id number] [place] [address]- 5623 Jan, [facility] [place] [facility] [address] [id number] [place] [address]- 4352 Jan, [facility] [place] [facility] [address] [id number] [place] [address]- 2867 Jan, [facility] [place] [facility] [address] [id number] [place] [address]- 0575 Dec, [facility] [place] [facility] [address] [id number] [place] [address]- 5096 Dec, [facility] [place] [facility] [address] [id number] [place] [address]- 5868 Dec, [facility] [place] [facility] [address] [id number] [place] [address]- 9849 Dec, [facility] [place] [facility] [address] [id number] [place] [address]- 2152 Dec, [facility] [place] [facility] [address] [id number] [place] [address]- 8525 Dec, [facility] [place] [facility] [address] [id number] [place] [address]- 4853 Dec, [facility] [place] [facility] [address] [id number] [place] [address]- 7767 Dec, [facility] [place] [facility] [address] [id number] [place] [address]- 6212 November, [facility] [place] [facility] [address] [id number] [place] [address]- 4759 November, [facility] [place] [facility] [address] [id number] [place] [address]- 3635 November, [facility] [place] [facility] [address] [id number] [place] [address]- 9100 November, [facility] [place] [facility] [address] [id number] [place] [address]- 8607 November, [facility] [place] [facility] [address] [id number] [place] [address]- 7027 November, [facility] [place] [facility] [address] [id number] [place] [address]- 7326 Oct, [facility] [place] [facility] [address] [id number] [place] [address]- 6962 Oct, [facility] [place] [facility] [address] [id number] [place] [address]- 3475 Oct, [facility] [place] [facility] [address] [id number] [place] [address]- 9074 Oct, [facility] [place] [facility] [address] [id number] [place] [address]- 8268 Sep, [facility] [place] [facility] [address] [id number] [place] [address]- 4702 Sep, [facility] [place] [facility] [address] [id number] [place] [address]- 6083 Sep, [facility] [place] [facility] [address] [id number] [place] [address]- 0024 Sep, [facility] [place] [facility] [address] [id number] [place] [address]- 0663 Sep, [facility] [place] [facility] [address] [id number] [place] [address]- 8075 Sep, [facility] [place] [facility] [address] [id number] [place] [address]- 1785 Aug, [facility] [place] [facility] [address] [id number] [place] [address]- 2143 Aug, [facility] [place] [facility] [address] [id number] [place] [address]- 7190 Aug, [facility] [place] [facility] [address] [id number] [place] [address]- 7787 Aug, [facility] [place] [facility] [address] [id number] [place] [address]- 6447 Aug, [facility] [place] [facility] [address] [facility] [id number] [place] [address]- 6818 Aug, [facility] [place] [facility] [address] [id number] [place] [address]- 1735 Jul, [facility] [place] [facility] [address] [id number] [place] [address]- 8979 Jul, [facility] [place] [facility] [address] [id number] [place] [address]- 0227 Jul, [facility] [place] [facility] [address] [id number] [place] [address]- 9681 Jul, [facility] [place] [facility] [address] [id number] [place] [address]- 3682 Jul, [facility] [place] [facility] [address] [id number] [place] [address]- 6488 Jul, [facility] [address] [id number] [place] [address]- 4468 Jul, [facility] [address] [id number] [place] [address]- 1464 Jul, [facility] [address] [id number] [place] [address]- 6265 Jul, [facility] [address] [id number] [place] [address]- 9088 Jul, [facility] [address] [id number] [place] [address]- 1871 Jul, [facility] [address] [id number] [place] [address]- 2517 Jul, [facility] [address] [id number] [place] [address]- 9110 Jul, [facility] [address] [id number] [place] [address]- 8550 Jul, [facility] [address] [id number] [place] [address]- 5205 Jul, [facility] [address] [id number] [place] [address]- 8756 Jun, [facility] [address] [id number] [place] [address]- 2747 Jun, [facility] [place] [facility] [address] [id number] [place] [address]- 9802 Jun, [facility] [place] [facility] [address] [id number] [place] [address]- 1248 Jun, [facility] [place] [facility] [address] [id number] [place] [address]- 5511 May, [facility] [place] [facility] [address] [id number] [address] May, [facility] [id number] [address] May, [facility] [id number] [address]- 6522 May, [facility] [id number] [address]- 1844 May, [facility] [id number] [address] May, [facility] [id number] [address] May, [facility] [id number] [place] [id number] May, [facility] [id number] [address] May, [facility] [id number] [id number] May, [facility] [id number] [address] May, [facility] [id number] [id number] May, [facility] [id number] [address] May, [facility] [id number] [id number] May, [facility] [id number] [address] May, IMMUNIZATIONS No Known Immunizations SOCIAL HISTORY Never Assessed REASON FOR VISIT Controlled Med Refill 11/03/2017 PLAN OF CARE VITAL SIGNS MEDICATIONS Medication Instructions Dosage Frequency Start Date End Date Duration Status Oxycodone-Acetaminophen 5-325 MG Orally 2 times a day 1 tablet 12h 20 Oct, 2017 28 days Active RESULTS No Results [...] leukocytosis--[facility] 01/08/16 Hospitalization History pseudomemranous colitis, sepsis--[facility] 04/21/2016 Hospitalization History C Diff--[facility] 05/10/2016 Hospitalization History sepsis, pneumonia, diarrhea--[facility] 06/11/16 Hospitalization History recurrent cdiff, pneumonia-[facility] 07/22/16 Hospitalization History sepsis,pneumonia- [facility]
--- OUTSIDE RECORDS SUMMARY | 2018-03-18 20:08 | XMS REPORT ---
Author Author DAPHNE YUSUF Organization [facility] Address [address] [place] [address] Care Team Providers Care Sde Name Role Phone DAPHNE YUSUF Unavailable PROBLEMS Type Condition ICD9-CM Code QUY09-AV Code Onset Dates Condition Status SNOMED Code Problem Hx of Clostridium difficile infection Z86.19 Active 384493437 Problem History of arthroplasty of right knee Z96.651 Active 078831054 Problem Dysphagia, unspecified dysphagia R13.10 Active 41419586 Problem Chronic pain syndrome G89.4 Active 624480196 Problem 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 970332586 Problem Anxiety F41.9 Active 14106520 Problem Leg pain, left M79.605 Active 655637524 Problem Depression, unspecified depression type F32.9 Active 85979327 Problem Iron deficiency anemia, unspecified iron deficiency anemia type D50.9 Active 09301178 Problem Anemia, unspecified type D64.9 Active 530317066 Problem Seasonal allergic rhinitis due to pollen J30.1 Active 75539741 Problem Insomnia, unspecified G47.00 Active 208323483 Problem 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 965774767 Problem History of cerebrovascular accident with current residual effects I69.90 Active 989444145 Problem Peripheral vascular disease, unspecified I73.9 Active 895830587 Problem Rheumatoid arthritis, involving unspecified site, unspecified rheumatoid factor presence M06.9 Active 61442260 Problem Other chronic pain G89.29 Active 65608639 Problem Primary insomnia F51.01 Active 3877585 Problem Chronic obstructive pulmon disease w acute lower resp infct J44.0 Active 692412713 Problem Atrial fibrillation I48.91 Active 40384913 Problem Dysthymia F34.1 Active 26588926 Problem Osteoarthritis of foot M19.079 Active 766096739 Problem Rheumatoid arthritis M06.9 Active 79290652 Problem Tobacco abuse, 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 270096897 Problem Edema R60.9 Active 499419123 Problem COPD (chronic obstructive pulmonary disease) J44.9 Active 48436782 Problem Hypertension I10 Active 60863166 ALLERGIES No Information ENCOUNTERS Encounter Location Date Diagnosis [facility] [id number] [place] [address] 47837- 4252 Jan, Chronic pain syndrome G89.4 [facility] [id number] [place] [address] 71405- 1581 Jan, [facility] [id number] [place] [address] 72636- 7088 Dec, Chronic pain syndrome G89.4 [facility] [address] 11595- 0639 November, Chronic pain syndrome G89.4 [facility] [id number] [place] [address] 48040- 8257 November, [facility] [id number] [place] [address] 41142- 3870 Oct, Chronic pain syndrome G89.4 [facility] [id number] [place] [address] 89822- 5339 Oct, [facility] [id number] [place] [address] 42049- 3916 Oct, Chronic pain syndrome G89.4 [facility] [id number] [place] [address] 92780- 9757 Oct, [facility] [id number] [place] [address] 63679- 8290 Oct, [facility] [id number] [place] [address] 42854- 7183 Sep, Left upper quadrant pain R10.12 ; Chronic pain syndrome G89.4 ; Left lower quadrant pain R10.32 ; Other chronic pain G89.29 ; Sacrococcygeal disorders, not elsewhere classified M53.3 and Seasonal allergic rhinitis due to pollen J30.1 [facility] [address] [address] 2263 Sep, Chronic pain syndrome G89.4 [facility] [address] [place] [address] 71268- 5846 Sep, [facility] [address] [address] 3206 Aug, Chronic pain syndrome G89.4 [facility] [id number] [place] [address] 70194- 7196 Aug, [facility] [id number] [place] [address] 09347- 3591 Aug, Insomnia, unspecified G47.00 [facility] [id number] [place] [address] 87516- 1110 Jul, [facility] [id number] [place] [address] 87854- 9918 Jul, [facility] [address] [address]- 5565 Jul, Chronic pain syndrome G89.4 [facility] [address] [address]- 6595 Jun, Chronic pain syndrome G89.4 [facility] [address] [address]- 1777 Jun, Chronic pain syndrome G89.4 [facility] [address] [address]- 5293 May, [facility] [address] [address]- 4387 May, Shortness of breath R06.02 ; Peripheral vascular disease, unspecified I73.9 ; Pain in right knee M25.561 ; Other chronic pain G89.29 ; Chest wall pain R07.89 ; Chronic pain syndrome G89.4 ; Primary insomnia F51.01 and Ear pain, left H92.02 [facility] [id number] [place] [address] 20107- 5085 May, Anxiety F41.9 [facility] [address] 21279- 3612 Apr, Pneumonia due to infectious organism, unspecified laterality , unspecified part of lung J18.9 ; Hypoxia R09.02 ; Bradycardia R00.1 ; History of Clostridium difficile Z87.19 and Primary insomnia F51.01 [facility] [address] 64983- 3146 Apr, Anxiety F41.9 [facility] [address] 11695- 9387 Apr, [facility] [address] 64684- 1769 Mar, Anxiety F41.9 [facility] [address] 81485- 1408 Feb, [facility] [address] 94735- 5739 Feb, [facility] [address] 53360- 5945 Feb, Abnormal finding on urinalysis R82.90 [facility] [address] 43963- 3406 Feb, [facility] [address] 82316- 0043 Feb, Shortness of breath R06.02 ; Tachycardia R00.0 ; Cough R05 ; Ill feeling R68.89 and Abnormal finding on urinalysis R82.90 [facility] [address] 17740- 7485 Feb, Anxiety F41.9 [facility] [id number] [place] [address] 65034 -8347 Feb, Sore throat J02.9 and Acute diffuse otitis externa of left ear H60.312 [facility] [address] [place] [address] 07803- 1458 Jan, [facility] [id number] [place] [address] 35850- 1972 Jan, [facility] [id number] [place] [address] [id number] Jan, [facility] [id number] [place] [address] 82123- 5259 Jan, Depression, unspecified depression type F32.9 ; Chronic bronchitis, unspecified chronic bronchitis type J42 ; Chronic pain syndrome G89.4 and Anxiety F41.9 [facility] [id number] [place] [address] 52646- 7414 Jan, [facility] [id number] [place] [address] 41761- 9534 Jan, [facility] [id number] [place] [address] 07211- 4368 Jan, [facility] [id number] [place] [address] [id number] Jan, Chronic pain syndrome G89.4 [facility] [address] [place] [id number] Dec, History of right knee surgery Z98.890 [facility] [address] [place] [address] 26440- 9985 Dec, [facility] [address] [place] [address] 07353- 5322 Dec, Chronic pain syndrome G89.4 [facility] [address] [place] [address] 68780- 4034 November, Anxiety F41.9 [facility] [address] [place] [address] 14126 -1017 November, Acute cystitis without hematuria N30.00 [facility] [id number] [place] [address] 83947 -1086 November, Fever, unspecified fever cause R50.9 and Acute cystitis without hematuria N30.00 [facility] [id number] [place] [address] 73238- 6021 November, Chronic pain syndrome G89.4 [facility] [id number] [place] [address] 55463- 7498 Oct, Anxiety F41.9 [facility] [id number] [place] [address] 34775- 5887 Oct, Chronic pain syndrome G89.4 [facility] [id number] [place] [address] 05030- 2765 Oct, Chronic pain syndrome G89.4 [facility] [id number] [place] [address] 35045- 4757 Oct, [facility] [id number] [place] [address] 60357- 1439 Oct, Chronic pain syndrome G89.4 ; Pain in right knee M25.561 ; History of Clostridium difficile Z87.19 ; Iron deficiency anemia, unspecified iron deficiency anemia type D50.9 ; Peripheral vascular disease, unspecified I73.9 and Atrial fibrillation I48.91 [facility] [id number] [place] [address] 22759- 2695 Oct, [facility] [id number] [place] [address] 22144- 6163 Oct, Chronic pain syndrome G89.4 [facility] [id number] [place] [address] 31787- 5058 Sep, [facility] [id number] [place] [address] 59711- 5737 Sep, Depression, unspecified depression type F32.9 ; Chronic bronchitis, unspecified chronic bronchitis type J42 ; Chronic pain syndrome G89.4 and Anxiety F41.9 [facility] [address] [id number] Sep, History of Clostridium difficile infection Z86.19 and History of stroke Z86.73 [facility] [id number] [place] [address] [id number] Sep, Anxiety F41.9 [facility] [address] [address] 2546 08 Sep, 2016 Chronic pain syndrome G89.4 [facility] [id number] [place] [address] 37830 2546 Sep, [facility] [id number] [place] [address] [id number] Sep, [facility] [id number] [place] [address] 22142- 0046 Aug, Anxiety F41.9 [facility] [id number] [place] [address] 18631- 2076 Aug, Anxiety F41.9 [facility] [id number] [place] [address] 68833 2543 16 Aug, 2016 [facility] [id number] [place] [address] 61800- 4150 14 Aug, 2016 Acute knee pain, unspecified laterality M25.569 [facility] [address] [address]- 2663 13 Aug, 2016 [facility] [address] [address]- 2548 09 Aug, 2016 Chronic pain syndrome G89.4 [facility] [address] [address] 2546 Aug, [facility] [id number] [place] [address] 30780 2546 Aug, [facility] [address] [address] 2546 Jul, [facility] [id number] [place] [address] 72874- 8425 Jul, Anxiety F41.9 [facility] [address] [place] [address] 06645- 4826 Jul, Clostridium difficile diarrhea A04.7 [facility] [address] [place] [id number] Jul, Clostridium difficile diarrhea A04.7 ; Chronic pain syndrome G89.4 ; Chronic obstructive pulmon disease w acute lower resp infct J44.0 and Pain in right knee M25.561 [facility] [id number] [place] [address] [id number] Jul, [facility] [id number] [place] [address] 06904 -9835 Jul, Anxiety F41.9 and Chronic pain syndrome G89.4 [facility] [id number] [place] [address] 08823- 4826 Jun, Anxiety F41.9 [facility] [id number] [place] [address] 85888- 6066 Jun, Rheumatoid arthritis 714.0 [facility] [id number] [place] [address] 76443- 7319 Jun, Chronic pain syndrome G89.4 [facility] [id number] [place] [address] 61541- 8633 Jun, [facility] [id number] [place] [address] 50897- 8714 Jun, [facility] [id number] [place] [address] 34851- 1777 Jun, History of pneumonia Z87.01 and History of Clostridium difficile Z87.19 [facility] [id number] [place] [address] 06832- 3795 Jun, [facility] [address] [address]- 3424 May, [facility] [id number] [place] [address] 16875- 2257 May, Anxiety F41.9 [facility] [id number] [place] [address] 75870- 0066 May, Chronic pain syndrome G89.4 [facility] [id number] [place] [address] 73512- 3436 May, Chronic bronchitis, unspecified chronic bronchitis type J42 [facility] [id number] [place] [address] 56110- 7166 May, [facility] [id number] [place] [address] 74981- 4924 May, C. difficile diarrhea A04.7 ; Peripheral edema R60.9 ; COPD (chronic obstructive pulmonary disease) J44.9 ; Rheumatoid arthritis, involving unspecified site, unspecified rheumatoid factor presence M06.9 ; Pain in right knee M25.561 ; Pain in left knee M25.562 and Other chronic pain G89.29 [facility] [id number] [place] [address] 71318 2546 May, [facility] [id number] [place] [address] 90295- 8385 May, [facility] [id number] [place] [address] 95483- 3228 May, Anxiety F41.9 [facility] [id number] [place] [address] 71121 2546 Apr, [facility] [id number] [place] [address] 03343 2546 Apr, Chronic pain syndrome G89.4 [facility] [id number] [place] [address] 54503 2546 Apr, Leg pain, left M79.605 [facility] [id number] [place] [address] 71219 2546 Apr, [facility] [id number] [address]- 0445 Apr, [facility] [id number] [place] [address] 32913- 1518 Apr, [facility] [id number] [place] [address] 51079- 3348 Mar, Chronic pain syndrome G89.4 [facility] [id number] [place] [address] 49564- 7731 Mar, Acute frontal sinusitis, recurrence not specified J01.10 [facility] [id number] [place] [address] 77927- 2125 20 Mar, 2016 Iron deficiency anemia, unspecified iron deficiency anemia type D50.9 ; Rheumatoid arthritis with positive rheumatoid factor, involving unspecified site M05.9 and Depression, unspecified depression type F32.9 [facility] [id number] [place] [address] 19969- 5482 Mar, Iron deficiency anemia, unspecified iron deficiency anemia type D50.9 ; Depression, unspecified depression type F32.9 and Rheumatoid arthritis with positive rheumatoid factor, involving unspecified site M05.9 [facility] [id number] [place] [address] 63156- 3622 Mar, [facility] [id number] [place] [address] 77276- 2175 Mar, [facility] [id number] [place] [address] 25722- 6793 Feb, Chronic pain syndrome G89.4 [facility] [address] [place] [address] 59595- 3275 Feb, 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 ; Status post CVA Z86.73 ; Hemiplegia G81.90 and Anemia, unspecified type D64.9 [facility] [address] [place] [address] 17415- 1878 Feb, [facility] [id number] [place] [address] 60664- 5597 Feb, Anemia, unspecified type D64.9 [facility] [id number] [place] [address] 90708- 4703 Feb, [facility] [id number] [place] [address] 47486- 7212 Feb, Iron deficiency anemia, unspecified iron deficiency anemia type D50.9 [facility] [id number] [place] [address] 44445- 6841 Feb, [facility] [id number] [place] [address] 98836- 2832 Feb, Chronic bronchitis, unspecified chronic bronchitis type J42 [facility] [id number] [place] [address] 30736- 4953 Feb, Iron deficiency anemia, unspecified iron deficiency anemia type D50.9 [facility] [id number] [place] [address] 76818- 5859 Feb, Chronic pain syndrome G89.4 [facility] [id number] [place] [address] 84076- 8551 Feb, Anemia, unspecified type D64.9 and Hypoxia R09.02 [facility] [address] [place] [address] 59125- 9332 Feb, Anemia, unspecified type D64.9 [facility] [id number] [place] [address] 25053- 0135 Jan, [facility] [id number] [place] [address] 38920- 4722 Jan, Anemia, unspecified type D64.9 [facility] [id number] [place] [address] 79791- 8436 Jan, [facility] [id number] [place] [address] 84198- 6096 Jan, Anemia, unspecified type D64.9 [facility] [address] [address]- 9802 Jan, Anemia, unspecified type D64.9 [facility] [id number] [place] [address] 42783- 4530 Jan, [facility] [id number] [place] [address] 16448- 7817 Jan, Anemia, unspecified type D64.9 [facility] [id number] [place] [address] 77406- 0755 Jan, [facility] [id number] [place] [address] 73257- 2304 Jan, [facility] [id number] [place] [address] 19833- 8888 Jan, Chronic pain syndrome G89.4 [facility] [id number] [place] [address] 43204- 1609 Jan, Anemia, unspecified type D64.9 [facility] [id number] [place] [address] 44763- 2939 Jan, Dysthymia F34.1 ; Cervicalgia M54.2 ; Fatigue, unspecified type R53.83 and Depression, unspecified depression type F32.9 [facility] [id number] [place] [address] 58276- 8540 Dec, [facility] [id number] [place] [address] 39664- 3274 Dec, Anxiety F41.9 [facility] [address] [place] [address] 75495- 2707 Dec, Chronic pain syndrome G89.4 [facility] [id number] [place] [address] 84512- 0536 November, [facility] [id number] [place] [address] 05962- 7552 November, Edema R60.9 and Dizziness R42 [facility] [id number] [place] [address] 78562- 1077 November, [facility] [id number] [place] [address] 58797- 8246 November, [facility] [id number] [place] [address] 52340- 8726 November, COPD (chronic obstructive pulmonary disease) J44.9 ; Increased tracheal secretions J39.8 and Edema R60.9 [facility] [id number] [place] [address] 90752 -5081 Oct, [facility] [address] 58114 -9042 Oct, Shortness of breath R06.02 and Edema R60.9 [facility] [id number] [place] [address] 38209- 2627 Oct, Chronic bronchitis, unspecified chronic bronchitis type J42 ; Peripheral vascular disease, unspecified I73.9 ; Rheumatoid arthritis M06.9 and Atrial fibrillation I48.91 [facility] [id number] [place] [address] 93493- 0662 Oct, [facility] [id number] [place] [address] 55751- 0621 Oct, [facility] [id number] [place] [address] 60771- 2492 Oct, [facility] [id number] [place] [address] 95984- 6969 Oct, [facility] [id number] [place] [address] 26127 -4304 Oct, COPD exacerbation J44.1 [facility] [id number] [place] [address] 12038- 7744 Sep, [facility] [id number] [place] [address] 10317- 8702 Sep, [facility] [address] [address] Sep, [facility] [id number] [place] [address] 44461- 4434 Aug, [facility] [id number] [place] [address] 36148- 5411 Aug, 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 and PVD (peripheral vascular disease ) I73.9 [facility] [id number] [place] [address] 12669- 4635 Aug, Bronchitis J40 ; COPD (chronic obstructive pulmonary disease ) J44.9 and Dysthymia F34.1 [facility] [id number] [place] [address] 66640- 4598 Aug, [facility] [id number] [place] [address] 27760- 5525 Jul, [facility] [id number] [place] [address] 61118- 5456 Jul, [facility] [id number] [place] [address] 96189- 5461 Jul, [facility] [id number] [address] Jun, [facility] [id number] [place] [address] 50488- 4134 Jun, [facility] [id number] [address] Jun, Peripheral vascular disease I73.9 [facility] [id number] [place] [address], [place] [address]- 2074 Jun, [facility] [id number] [address]- 7[address] Jun, [facility] [id number] [place] [address] 70023- 2415 Jun, Leg pain, left M79.605 ; Dysphagia, unspecified dysphagia R13.10 ; Insomnia, unspecified type G47.00 ; PVD (peripheral vascular disease) I73.9 and 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 [facility] [id number] [place], [place] [address] 39602- 0847 May, [facility] [id number] [place] [address] 38735- 4672 May, [facility] [id number] [place] [address] 85825- 2369 May, [facility] [id number] [place] [address] 85032- 3618 May, [facility] [id number] [place] [address] 43700- 7602 May, [facility] [id number] [place] [address] 26685- 8601 Apr, [facility] [id number] [place] [address] 66089- 3392 Apr, [facility] [id number] [place] [address] 35312- 9908 Mar, [facility] [id number] [place] [address] 48388- 1500 Mar, [facility] [id number] [place] [address] 42802- 0265 Feb, [facility] [id number] [place] [address] 33172- 4684 Feb, Nicotine abuse 305.1 ; Arthralgia 719.40 and 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 [facility] [id number] [place] [address] 364276- 2926 Feb, [facility] [id number] [place] [address] [id number]- 8536 Jan, [facility] [address] [address] 2[address] 16 Jan, 2014 [facility] [address] [address]- 6910 Jan, [facility] [address] [address] 1347 Jan, [facility] [id number] [place] [address] 76752- 7582 Jan, 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 ; Rheumatoid arthritis 714.0 ; Hypertension 401.9 ; GERD (gastroesophageal reflux disease) 530.81 ; Nicotine addiction 305.1 and Leukocytosis 288.60 [facility] [address] [address]- 4982 Jan, 2014 [facility] [address] [address]- 8646 Jan, [facility] [address] [address]- 8276 Jan, [facility] [address] [address]- 2117 Jan, [facility] [address] [address]- 6093 Jan, [facility] [address] [address]- 0147 Dec, [facility] [address] [address]- 7195 Dec, [facility] [address] [address]- 6098 Dec, [facility] [address] [address]- 7160 Dec, [facility] [id number] [address]- 5120 November, [facility] [id number] [place] [address] [id number]- 3494 November, [facility] [id number] [place] [address] 288564- 2118 November, Shortness of breath 786.05 [facility] [id number] [place] [address] 82690- 9242 November, Rheumatoid arthritis 714.0 [facility] [id number] [place] [address] 70735- 0822 November, 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 [facility] [id number] [place] [address] 738356- 0881 November, Neuropathy 355.9 ; Insomnia 780.52 ; Dysthymia 300.4 ; Shortness of breath 786.05 ; Rheumatoid arthritis 714.0 and Nausea 787.02 [facility] [id number] [place] [address] 81580- 3715 November, [facility] [id number] [place] [address] 61238- 7187 November, [facility] [id number] [place] [address] 55455- 2363 Oct, [facility] [id number] [place] [address] 69795- 1418 Oct, [facility] [id number] [address]- 9901 Oct, [facility] [id number] [place] [address] 31247- 5342 Oct, [facility] [id number] [place] [address] 77832- 0014 Sep, [facility] [id number] [place] [address] 81912- 7172 Sep, [facility] [id number] [address]- 5155 Sep, [facility] [address] [facility] [place] [address]- 1521 Sep, [facility] [place] [facility] [address] [id number] [place] [address]- 2065 Sep, [facility] [place] [facility] [address] [id number] [place] [address]- 6441 Sep, [facility] [place] [facility] [address] [id number] [place] [address]- 2070 Sep, [facility] [place] [facility] [address] [id number] [place] [address]- 9283 Sep, [facility] [place] [facility] [address] [id number] [place] [address]- 6296 Aug, [facility] [place] [facility] [address] [id number] [place] [address]- 4053 Aug, [facility] [place] [facility] [address] [id number] [place] [address]- 2778 Aug, [facility] [place] [facility] [address] [id number] [place] [address]- 4826 Aug, [facility] [place] [facility] [address] [id number] [place] [address]- 9359 Aug, [facility] [place] [facility] [address] [facility] [id number] [place] [address]- 3935 Aug, [facility] [place] [facility] [address] [id number] [place] [address]- 2598 Jul, [facility] [place] [facility] [address] [id number] [place] [address]- 2967 Jul, [facility] [place] [facility] [address] [id number] [place] [address]- 4160 Jul, [facility] [place] [facility] [address] [id number] [place] [address]- 5536 Jul, [facility] [place] [facility] [address] [facility] [id number] [place] [address]- 7483 Jul, [facility] [place] [facility] [address] [id number] [place] [address]- 1375 Jul, [facility] [place] [facility] [address] [id number] [place] [address]- 8561 Jul, [facility] [place] [facility] [address] [id number] [place] [address]- 5713 Jul, [facility] [place] [facility] [address] [id number] [place] [address]- 1115 Jul, [facility] [place] [facility] [address] [id number] [place] [address]- 0320 Jul, [facility] [place] [facility] [address] [id number] [place] [address]- 2711 Jun, [facility] [place] [facility] [address] [id number] [place] [address]- 7897 Jun, [facility] [place] [facility] [address] [id number] [place] [address]- 2003 Jun, [facility] [place] [facility] [address] [id number] [place] [address]- 1778 Jun, [facility] [place] [facility] [address] [id number] [place] [address]- 8483 Jun, [facility] [place] [facility] [address] [id number] [place] [address]- 6227 Jun, [facility] [place] [facility] [address] [id number] [place] [address]- 9008 Jun, [facility] [place] [facility] [address] [id number] [place] [address]- 4565 Jun, [facility] [place] [facility] [address] [id number] [place] [address]- 9549 Jun, [facility] [place] [facility] [address] [id number] [place] [address]- 4395 Jun, [facility] [place] [facility] [address] [id number] [place] [address]- 1951 08 Jun, 2014 [facility] [place] [facility] [address] [id number] [place] [address]- 5080 08 Jun, 2014 [facility] [place] [facility] [address] [id number] [place] 1601 Jun, [facility] [place] [facility] [address] [id number] [place] [address]- 3823 Jun, [facility] [place] [facility] [address] [id number] [place] [address]- 8328 Jun, [facility] [place] [facility] [address] [id number] [place] [address]- 6934 Jun, [facility] [place] [facility] [address] [id number] [place] [address]- 8228 May, [facility] [place] [facility] [address] [id number] [place] [address]- 1766 May, [facility] [place] [facility] [address] [id number] [place] [address]- 3605 May, [facility] [place] [facility] [address] [id number] [place] [address]- 0641 May, [facility] [place] [facility] [address] [facility] [id number] [place] [address]- 0992 May, [facility] [place] [facility] [address] [id number] [place] [address]- 6695 May, [facility] [place] [facility] [address] [id number] [place] [address]- 3837 May, [facility] [place] [facility] [address] [id number] [place] [address]- 4105 May, [facility] [place] [facility] [address] [id number] [place] [address]- 6379 May, [facility] [place] [facility] [address] [id number] [place] [address]- 2535 Apr, [facility] [place] [facility] [address] [id number] [place] [address]- 0745 Apr, [facility] [place] [facility] [address] [id number] [place] [address]- 9729 Apr, [facility] [place] [facility] [address] [id number] [place] [address]- 8701 Apr, [facility] [place] [facility] [address] [id number] [place] [address]- 1589 Apr, [facility] [place] [facility] [address] [id number] [place] [address]- 8686 Apr, [facility] [place] [facility] [address] [id number] [place] [address]- 5962 Apr, [facility] [place] [facility] [address] [id number] [place] [address]- 1598 Apr, [facility] [place] [facility] [address] [id number] [place] [address]- 4224 Apr, [facility] [place] [facility] [address] [id number] [place] [address]- 1438 Apr, [facility] [place] [facility] [address] [id number] [place] [address]- 4240 Apr, [facility] [place] [facility] [address] [id number] [place] [address]- 6304 Apr, [facility] [place] [facility] [address] [id number] [place] [address]- 3379 Mar, [facility] [place] [facility] [address] [id number] [place] [address]- 3522 Mar, [facility] [place] [facility] [address] [id number] [place] [address]- 4363 Mar, [facility] [place] [facility] [address] [id number] [place] [address]- 7735 Mar, [facility] [place] [facility] [address] [id number] [place] [address]- 6963 Mar, [facility] [place] [facility] [address] [id number] [place] [address]- 6028 Mar, [facility] [place] [facility] [address] [id number] [place] [address]- 9355 Mar, [facility] [place] [facility] [address] [id number] [place] [address]- 1603 Mar, [facility] [place] [facility] [address] [id number] [place] [address]- 2503 Mar, [facility] [place] [facility] [address] [id number] [place] [address]- 7001 Mar, [facility] [place] [facility] [address] [id number] [place] [address]- 4345 Feb, [facility] [place] [facility] [address] [id number] [place] [address]- 4465 Feb, [facility] [place] [facility] [address] [id number] [place] [address]- 1506 Feb, [facility] [place] [facility] [address] [id number] [place] [address]- 0295 Feb, [facility] [place] [facility] [address] [id number] [place] [address]- 3041 Feb, [facility] [place] [facility] [address] [id number] [place] [address]- 0362 Feb, [facility] [place] [facility] [address] [id number] [place] [address]- 6987 Feb, [facility] [place] [facility] [address] [id number] [place] [address]- 4405 Feb, [facility] [place] [facility] [address] [id number] [place] [address]- 9404 Feb, [facility] [place] [facility] [address] [id number] [place] [address]- 4902 Feb, [facility] [place] [facility] [address] [id number] [place] [address]- 0107 Feb, [facility] [place] [facility] [address] [id number] [place] [address]- 6150 Feb, [facility] [place] [facility] [address] [id number] [place] [address]- 1209 Feb, [facility] [place] [facility] [address] [id number] [place] [address]- 1578 Feb, [facility] [place] [facility] [address] [id number] [place] [address]- 9658 Feb, [facility] [place] [facility] [address] [id number] [place] [address]- 0906 Feb, [facility] [place] [facility] [address] [id number] [place] [address]- 4857 Jan, [facility] [place] [facility] [address] [id number] [place] [address]- 8424 Jan, [facility] [place] [facility] [address] [id number] [place] [address]- 2105 Jan, [facility] [place] [facility] [address] [id number] [place] [address]- 1176 Jan, [facility] [place] [facility] [address] [id number] [place] [address]- 5176 Jan, [facility] [place] [facility] [address] [id number] [place] [address]- 1559 Jan, [facility] [place] [facility] [address] [id number] [place] [address]- 6351 Dec, [facility] [place] [facility] [address] [id number] [place] [address]- 5488 Dec, [facility] [place] [facility] [address] [id number] [place] [address]- 1677 Dec, [facility] [place] [facility] [address] [id number] [place] [address]- 2555 Dec, [facility] [place] [facility] [address] [id number] [place] [address]- 0071 Dec, [facility] [place] [facility] [address] [id number] [place] [address]- 2974 Dec, [facility] [place] [facility] [address] [id number] [place] [address]- 8884 Dec, [facility] [place] [facility] [address] [id number] [place] [address]- 4524 Dec, [facility] [place] [facility] [address] [id number] [place] [address]- 8851 November, [facility] [place] [facility] [address] [id number] [place] [address]- 4572 November, [facility] [place] [facility] [address] [id number] [place] [address]- 6721 November, [facility] [place] [facility] [address] [id number] [place] [address]- 2616 November, [facility] [place] [facility] [address] [id number] [place] [address]- 7161 November, [facility] [place] [facility] [address] [id number] [place] [address]- 0757 November, [facility] [place] [facility] [address] [id number] [place] [address]- 3544 Oct, [facility] [place] [facility] [address] [id number] [place] [address]- 2643 Oct, [facility] [place] [facility] [address] [id number] [place] [address]- 0513 Oct, [facility] [place] [facility] [address] [id number] [place] [address]- 8988 Oct, [facility] [place] [facility] [address] [id number] [place] [address]- 9424 Sep, [facility] [place] [facility] [address] [id number] [place] [address]- 4663 Sep, [facility] [place] [facility] [address] [id number] [place] [address]- 7312 Sep, [facility] [place] [facility] [address] [id number] [place] [address]- 7476 Sep, [facility] [place] [facility] [address] [id number] [place] [address]- 3566 Sep, [facility] [place] [facility] [address] [id number] [place] [address]- 6304 Sep, [facility] [place] [facility] [address] [id number] [place] [address]- 4104 Aug, [facility] [place] [facility] [address] [id number] [place] [address]- 1012 Aug, [facility] [place] [facility] [address] [id number] [place] [address]- 5335 Aug, [facility] [place] [facility] [address] [id number] [place] [address]- 0480 Aug, [facility] [place] [facility] [address] [id number] [place] [address]- 4981 Aug, [facility] [place] [facility] [address] [facility] [id number] [place] [address]- 7504 Aug, [facility] [place] [facility] [address] [id number] [place] [address]- 6798 Jul, [facility] [place] [facility] [address] [id number] [place] [address]- 2397 Jul, [facility] [place] [facility] [address] [id number] [place] [address]- 8611 Jul, [facility] [place] [facility] [address] [id number] [place] [address]- 6187 Jul, [facility] [place] [facility] [address] [id number] [place] [address]- 7808 Jul, [facility] [place] [facility] [address] [id number] [place] [address]- 4845 Jul, [facility] [address] [id number] [place] [address]- 0398 Jul, [facility] [address] [id number] [place] [address]- 9261 Jul, [facility] [address] [id number] [place] [address]- 4366 Jul, [facility] [address] [id number] [place] [address]- 4161 Jul, [facility] [address] [id number] [place] [address]- 3599 Jul, [facility] [address] [id number] [place] [address]- 4535 Jul, [facility] [address] [id number] [place] [address]- 8758 Jul, [facility] [address] [id number] [place] [address]- 1375 Jul, [facility] [address] [id number] [place] [address]- 0335 Jul, [facility] [address] [id number] [place] [address]- 5506 Jun, [facility] [address] [id number] [place] [address]- 8747 Jun, [facility] [place] [facility] [address] [id number] [place] [address]- 2547 Jun, [facility] [place] [facility] [address] [id number] [place] [address]- 6866 Jun, [facility] [place] [facility] [address] [id number] [place] [address]- 7023 May, [facility] [place] [facility] [address] [id number] [address] 9552 May, [facility] [address] [id number] [id number] May, [facility] [address] [address]- 1564 May, [facility] [address] [address]- 0090 May, [facility] [address] [id number] [address]- 2003 May, [facility] [address] [address]- 5238 May, [facility] [id number] [place] [address]- 0114 May, [facility] [address] [address]- 1232 May, [facility] [address] [id number] May, [facility] [id number] [address] May, [facility] [id number] [id number] May, [facility] [id number] [address] May, [facility] [id number] [id number] May, [facility] [id number] [address] May, IMMUNIZATIONS No Known Immunizations SOCIAL HISTORY Never Assessed REASON FOR VISIT Medication increase PLAN OF CARE VITAL SIGNS MEDICATIONS Medication Instructions Dosage Frequency Start Date End Date Duration Status Trazodone HCl 50 MG Orally Once a day 2 tablets at bedtime 24h Aug, Active RESULTS No Results PROCEDURES No Known [...] leukocytosis--[facility] 01/08/16 Hospitalization History pseudomemranous colitis, sepsis--[facility] 04/21/2016 Hospitalization History C Diff--[facility] 05/10/2016 Hospitalization History sepsis, pneumonia, diarrhea--[facility] 06/11/16 Hospitalization History recurrent cdiff, pneumonia-[facility] 07/22/16 Hospitalization History sepsis,pneumonia- [facility]
--- OUTSIDE RECORDS SUMMARY | 2018-03-18 20:09 | XMS REPORT ---
Author Author DAPHNE YUSUF Organization [facility] Address [address] [place] [address] Care Team Providers Care Security Tech Name Role Phone DAPHNE YUSUF Unavailable PROBLEMS Type Condition ICD9-CM Code [id number] Code Onset Dates Condition Status SNOMED Code Problem Hx of Clostridium difficile infection Z86.19 Active 027458182 Problem History of arthroplasty of right knee Z96.651 Active 666994710 Problem Dysphagia, unspecified dysphagia R13.10 Active 49761183 Problem Chronic pain syndrome G89.4 Active 138598954 Problem 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 817264620 Problem Anxiety F41.9 Active 70209103 Problem Leg pain, left M79.605 Active 042460238 Problem Depression, unspecified depression type F32.9 Active 93863101 Problem Iron deficiency anemia, unspecified iron deficiency anemia type D50.9 Active 30446328 Problem Anemia, unspecified type D64.9 Active 766453180 Problem Seasonal allergic rhinitis due to pollen J30.1 Active 55654269 Problem Insomnia, unspecified G47.00 Active 655722194 Problem 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 668045238 Problem History of cerebrovascular accident with current residual effects I69.90 Active 612883878 Problem Peripheral vascular disease, unspecified I73.9 Active 759537782 Problem Rheumatoid arthritis, involving unspecified site, unspecified rheumatoid factor presence M06.9 Active 24541287 Problem Other chronic pain G89.29 Active 52120321 Problem Primary insomnia F51.01 Active 1694004 Problem Chronic obstructive pulmon disease w acute lower resp infct J44.0 Active 195465122 Problem Atrial fibrillation I48.91 Active 90436148 Problem Dysthymia F34.1 Active 10115591 Problem Osteoarthritis of foot M19.079 Active 146383043 Problem Rheumatoid arthritis M06.9 Active 84971258 Problem Tobacco abuse, 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 832765202 Problem Edema R60.9 Active 415798212 Problem COPD (chronic obstructive pulmonary disease) J44.9 Active 55557553 Problem Hypertension I10 Active 25975054 ALLERGIES No Information ENCOUNTERS Encounter Location Date Diagnosis [facility] [id number] [place] [address] 47483- 8360 Jan, Chronic pain syndrome G89.4 [facility] [id number] [place] [address] 85910- 8640 Jan, [facility] [id number] [place] [address] 77598- 2318 Dec, Chronic pain syndrome G89.4 [facility] [address] 65343- 2077 November, Chronic pain syndrome G89.4 [facility] [id number] [place] [address] 15015- 5506 November, [facility] [id number] [place] [address] 08003- 8572 Oct, Chronic pain syndrome G89.4 [facility] [id number] [place] [address] 30653- 4675 Oct, [facility] [id number] [place] [address] 34242- 8017 Oct, Chronic pain syndrome G89.4 [facility] [id number] [place] [address] 18117- 6189 Oct, [facility] [id number] [place] [address] 62346- 6536 Oct, [facility] [id number] [place] [address] 45039- 4591 Sep, Left upper quadrant pain R10.12 ; Chronic pain syndrome G89.4 ; Left lower quadrant pain R10.32 ; Other chronic pain G89.29 ; Sacrococcygeal disorders, not elsewhere classified M53.3 and Seasonal allergic rhinitis due to pollen J30.1 [facility] [address] [address] 3722 Sep, Chronic pain syndrome G89.4 [facility] [address] [place] [address] 91153- 7256 Sep, [facility] [address] [address] 2376 Aug, Chronic pain syndrome G89.4 [facility] [id number] [place] [address] 99244- 7656 Aug, [facility] [address] [place] [address] 33985- 5465 Aug, Insomnia, unspecified G47.00 [facility] [address] [place] [address] 68248- 4601 Jul, [facility] [address] [place] [address] 37884- 5702 Jul, [facility] [address] [address] 9552 Jul, Chronic pain syndrome G89.4 [facility] [address] [address]- 4510 Jun, Chronic pain syndrome G89.4 [facility] [address] [address]- 9095 Jun, Chronic pain syndrome G89.4 [facility] [address] [address]- 2678 May, [facility] [address] [address]- 2928 May, Shortness of breath R06.02 ; Peripheral vascular disease, unspecified I73.9 ; Pain in right knee M25.561 ; Other chronic pain G89.29 ; Chest wall pain R07.89 ; Chronic pain syndrome G89.4 ; Primary insomnia F51.01 and Ear pain, left H92.02 [facility] [id number] [place] [address] 26672- 7049 May, Anxiety F41.9 [facility] [address] 81198- 8275 Apr, Pneumonia due to infectious organism, unspecified laterality , unspecified part of lung J18.9 ; Hypoxia R09.02 ; Bradycardia R00.1 ; History of Clostridium difficile Z87.19 and Primary insomnia F51.01 [facility] [address] 60400- 6990 Apr, Anxiety F41.9 [facility] [address] 89360- 8887 Apr, [facility] [address] 07924- 1685 Mar, Anxiety F41.9 [facility] [address] 78648- 1687 Feb, [facility] [address] 67667- 7057 Feb, [facility] [address] 80437- 7676 Feb, Abnormal finding on urinalysis R82.90 [facility] [address] 28119- 8051 Feb, [facility] [address] 09008- 0508 Feb, Shortness of breath R06.02 ; Tachycardia R00.0 ; Cough R05 ; Ill feeling R68.89 and Abnormal finding on urinalysis R82.90 [facility] [address] 21420- 1228 Feb, Anxiety F41.9 [facility] [id number] [place] [address] 88607 -7449 Feb, Sore throat J02.9 and Acute diffuse otitis externa of left ear H60.312 [facility] [address] [place] [address] 28173- 2942 Jan, [facility] [id number] [place] [address] 06968- 9631 Jan, [facility] [id number] [place] [address] [id number] Jan, [facility] [id number] [place] [address] 93978- 4975 Jan, Depression, unspecified depression type F32.9 ; Chronic bronchitis, unspecified chronic bronchitis type J42 ; Chronic pain syndrome G89.4 and Anxiety F41.9 [facility] [id number] [place] [address] 47002- 3352 Jan, [facility] [id number] [place] [address] 37853- 5359 Jan, [facility] [id number] [place] [address] 63222- 9723 Jan, [facility] [id number] [place] [address] [id number] Jan, Chronic pain syndrome G89.4 [facility] [address] [place] [id number] Dec, History of right knee surgery Z98.890 [facility] [address] [place] [address] 59150- 7470 Dec, [facility] [address] [place] [address] 64418- 2910 Dec, Chronic pain syndrome G89.4 [facility] [address] [place] [address] 41783- 3415 November, Anxiety F41.9 [facility] [address] [place] [address] 44884 -3894 November, Acute cystitis without hematuria N30.00 [facility] [id number] [place] [address] 78106 -2007 November, Fever, unspecified fever cause R50.9 and Acute cystitis without hematuria N30.00 [facility] [id number] [place] [address] 52772- 6493 November, Chronic pain syndrome G89.4 [facility] [id number] [place] [address] 04982- 0398 Oct, Anxiety F41.9 [facility] [id number] [place] [address] 38309- 1028 Oct, Chronic pain syndrome G89.4 [facility] [id number] [place] [address] 99054- 3623 Oct, Chronic pain syndrome G89.4 [facility] [id number] [place] [address] 98712- 1513 Oct, [facility] [id number] [place] [address] 05975- 0654 Oct, Chronic pain syndrome G89.4 ; Pain in right knee M25.561 ; History of Clostridium difficile Z87.19 ; Iron deficiency anemia, unspecified iron deficiency anemia type D50.9 ; Peripheral vascular disease, unspecified I73.9 and Atrial fibrillation I48.91 [facility] [id number] [place] [address] 62061- 9009 Oct, [facility] [id number] [place] [address] 84023- 1230 Oct, Chronic pain syndrome G89.4 [facility] [address] [place] [address] 97904- 7251 Sep, [facility] [id number] [place] [address] 41170- 7421 Sep, Depression, unspecified depression type F32.9 ; Chronic bronchitis, unspecified chronic bronchitis type J42 ; Chronic pain syndrome G89.4 and Anxiety F41.9 [facility] [address] [place] [id number] Sep, History of Clostridium difficile infection Z86.19 and History of stroke Z86.73 [facility] [id number] [place] [address] [id number] Sep, Anxiety F41.9 [facility] [address], [place] [address] 2546 08 Sep, 2016 Chronic pain syndrome G89.4 [facility] [address] [place] [address] 41991 2546 Sep, [facility] [id number] [place] [address] [id number] Sep, [facility] [id number] [place] [address] 65478- 7096 Aug, Anxiety F41.9 [facility] [address] [place] [address] 40798- 4176 Aug, Anxiety F41.9 [facility] [id number] [place] [address] 91505 254 16 Aug, 2016 [facility] [id number] [place] [address] 53888- 6376 14 Aug, 2016 Acute knee pain, unspecified laterality M25.569 [facility] [address] [address]- 1255 13 Aug, 2016 [facility] [address], [place] [address]- 2545 09 Aug, 2016 Chronic pain syndrome G89.4 [facility] [address], [place] [address] 2546 Aug, [facility] [id number] [place] [address] 88349 2546 Aug, [facility] [address], [place] [address] 2546 Jul, [facility] [id number] [place] [address] 31216- 6795 Jul, Anxiety F41.9 [facility] [address] [place] [address] 42281- 9939 Jul, Clostridium difficile diarrhea A04.7 [facility] [address] [place] [id number] Jul, Clostridium difficile diarrhea A04.7 ; Chronic pain syndrome G89.4 ; Chronic obstructive pulmon disease w acute lower resp infct J44.0 and Pain in right knee M25.561 [facility] [id number] [place] [address] [id number] Jul, [facility] [address] [place] [address] 36871 -9249 Jul, Anxiety F41.9 and Chronic pain syndrome G89.4 [facility] [id number] [place] [address] 01989- 3469 Jun, Anxiety F41.9 [facility] [address] [place] [address] 37768- 3177 Jun, Rheumatoid arthritis 714.0 [facility] [address] [place] [address] 96070- 2848 Jun, Chronic pain syndrome G89.4 [facility] [id number] [place] [address] 30280- 0545 Jun, [facility] [address] [place] [address] 19984- 2906 Jun, [facility] [address] [place] [address] 50337- 2998 Jun, History of pneumonia Z87.01 and History of Clostridium difficile Z87.19 [facility] [address] [place] [address] 97392- 0843 Jun, [facility] [address], [place] [address]- 5857 May, [facility] [id number] [place] [address] 51335- 6362 May, Anxiety F41.9 [facility] [id number] [place] [address] 05454- 7356 May, Chronic pain syndrome G89.4 [facility] [id number] [place] [address] 44094- 8316 May, Chronic bronchitis, unspecified chronic bronchitis type J42 [facility] [id number] [place] [address] 96793- 5016 May, [facility] [id number] [place] [address] 37678- 0359 May, C. difficile diarrhea A04.7 ; Peripheral edema R60.9 ; COPD (chronic obstructive pulmonary disease) J44.9 ; Rheumatoid arthritis, involving unspecified site, unspecified rheumatoid factor presence M06.9 ; Pain in right knee M25.561 ; Pain in left knee M25.562 and Other chronic pain G89.29 [facility] [id number] [place] [address] 46908 2546 May, [facility] [id number] [place] [address] 51532- 8409 May, [facility] [id number] [place] [address] 79983- 8793 May, Anxiety F41.9 [facility] [id number] [place] [address] 61608 2546 Apr, [facility] [id number] [place] [address] 55351 2546 Apr, Chronic pain syndrome G89.4 [facility] [id number] [place] [address] 58895 2546 Apr, Leg pain, left M79.605 [facility] [id number] [place] [address] 44304 2546 Apr, [facility] [id number] [address]- 0985 Apr, [facility] [id number] [place] [address] 49970- 0114 Apr, [facility] [id number] [place] [address] 48760- 2919 Mar, Chronic pain syndrome G89.4 [facility] [id number] [place] [address] 43329- 4553 Mar, Acute frontal sinusitis, recurrence not specified J01.10 [facility] [id number] [place] [address] 16220- 0972 20 Mar, 2016 Iron deficiency anemia, unspecified iron deficiency anemia type D50.9 ; Rheumatoid arthritis with positive rheumatoid factor, involving unspecified site M05.9 and Depression, unspecified depression type F32.9 [facility] [id number] [place] [address] 96943- 5466 Mar, Iron deficiency anemia, unspecified iron deficiency anemia type D50.9 ; Depression, unspecified depression type F32.9 and Rheumatoid arthritis with positive rheumatoid factor, involving unspecified site M05.9 [facility] [id number] [place] [address] 49678- 7930 Mar, [facility] [address] [place] [address] 71942- 2644 Mar, [facility] [id number] [place] [address] 00461- 9936 Feb, Chronic pain syndrome G89.4 [facility] [address] [place] [address] 82174- 0368 Feb, 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 ; Status post CVA Z86.73 ; Hemiplegia G81.90 and Anemia, unspecified type D64.9 [facility] [address] [place] [address] 86979- 7867 Feb, [facility] [id number] [place] [address] 86687- 4705 Feb, Anemia, unspecified type D64.9 [facility] [id number] [place] [address] 08664- 8095 Feb, [facility] [id number] [place] [address] 42995- 7480 Feb, Iron deficiency anemia, unspecified iron deficiency anemia type D50.9 [facility] [id number] [place] [address] 56287- 2118 Feb, [facility] [id number] [place] [address] 40916- 3299 Feb, Chronic bronchitis, unspecified chronic bronchitis type J42 [facility] [id number] [place] [address] 98552- 6466 Feb, Iron deficiency anemia, unspecified iron deficiency anemia type D50.9 [facility] [id number] [place] [address] 67756- 3862 Feb, Chronic pain syndrome G89.4 [facility] [id number] [place] [address] 74359- 4456 Feb, Anemia, unspecified type D64.9 and Hypoxia R09.02 [facility] [address] [place] [address] 47356- 1125 Feb, Anemia, unspecified type D64.9 [facility] [address] [place] [address] 58843- 9497 Jan, [facility] [id number] [place] [address] 24873- 9285 Jan, Anemia, unspecified type D64.9 [facility] [address] [place] [address] 67960- 1578 Jan, [facility] [address] [place] [address] 19535- 2979 Jan, Anemia, unspecified type D64.9 [facility] [address], [place] [address]- 2941 Jan, Anemia, unspecified type D64.9 [facility] [id number] [place] [address] 23937- 3122 Jan, [facility] [id number] [place] [address] 08785- 4157 Jan, Anemia, unspecified type D64.9 [facility] [id number] [place] [address] 65414- 1065 Jan, [facility] [id number] [place] [address] 73523- 6721 Jan, [facility] [id number] [place] [address] 16410- 3717 Jan, Chronic pain syndrome G89.4 [facility] [id number] [place] [address] 78298- 9180 Jan, Anemia, unspecified type D64.9 [facility] [id number] [place] [address] 02537- 1761 Jan, Dysthymia F34.1 ; Cervicalgia M54.2 ; Fatigue, unspecified type R53.83 and Depression, unspecified depression type F32.9 [facility] [id number] [place] [address] 05784- 2084 Dec, [facility] [id number] [place] [address] 42525- 8061 Dec, Anxiety F41.9 [facility] [address] [place] [address] 99392- 4080 Dec, Chronic pain syndrome G89.4 [facility] [id number] [place] [address] 15948- 0400 November, [facility] [id number] [place] [address] 92428- 3149 November, Edema R60.9 and Dizziness R42 [facility] [id number] [place] [address] 80208- 9911 November, [facility] [id number] [place] [address] 62661- 2214 November, [facility] [id number] [place] [address] 72367- 9033 November, COPD (chronic obstructive pulmonary disease) J44.9 ; Increased tracheal secretions J39.8 and Edema R60.9 [facility] [id number] [place] [address] 76162 -4266 Oct, [facility] [address] 30900 -4442 Oct, Shortness of breath R06.02 and Edema R60.9 [facility] [id number] [place] [address] 58729- 7090 Oct, Chronic bronchitis, unspecified chronic bronchitis type J42 ; Peripheral vascular disease, unspecified I73.9 ; Rheumatoid arthritis M06.9 and Atrial fibrillation I48.91 [facility] [id number] [place] [address] 78902- 6948 Oct, [facility] [id number] [place] [address] 47303- 8529 Oct, [facility] [id number] [place] [address] 10481- 3590 Oct, [facility] [id number] [place] [address] 49751- 0094 Oct, [facility] [id number] [place] [address] 77335 -6853 Oct, COPD exacerbation J44.1 [facility] [id number] [place] [address] 00442- 4696 Sep, [facility] [id number] [place] [address] 12612- 5524 Sep, [facility] [address] [address]- 7256 Sep, [facility] [id number] [place] [address] 55879- 4003 Aug, [facility] [id number] [place] [address] 12586- 9300 Aug, 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 and PVD (peripheral vascular disease ) I73.9 [facility] [id number] [place] [address] 57915- 8306 Aug, Bronchitis J40 ; COPD (chronic obstructive pulmonary disease ) J44.9 and Dysthymia F34.1 [facility] [id number] [place] [address] 66370- 0115 Aug, [facility] [id number] [place] [address] 72588- 2138 Jul, [facility] [id number] [place] [address] 02535- 1224 Jul, [facility] [id number] [place] [address] 20566- 9210 Jul, [facility] [address] [address]- 3814 Jun, [facility] [address] [place] [address] 03588- 5868 Jun, [facility] [address] [address]- 7222 Jun, Peripheral vascular disease I73.9 [facility] [id number] [place] [address], [place] [address]- 0532 Jun, [facility] [id number] [address] Jun, [facility] [id number] [place] [address] Jun, Leg pain, left M79.605 ; Dysphagia, unspecified dysphagia R13.10 ; Insomnia, unspecified type G47.00 ; PVD (peripheral vascular disease) I73.9 and 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 [facility] [id number] [place] [id number]- [id number] May, [facility] [id number] [place] [address]- [address]448 May, [facility] [id number] [place] [id number]- [address] May, [facility] [id number] [place] [id number]- [id number] May, [facility] [address] [id number] [place] [address] 46740- 5707 May, [facility] [id number] [place] [address] 12393- 0761 Apr, [facility] [id number] [place] [address] 36098- 8529 Apr, [facility] [id number] [place] [address] 55225- 0727 Mar, [facility] [id number] [place] [address] 49283- 4549 Mar, [facility] [id number] [place] [address] 44558- 5979 Feb, [facility] [id number] [place] [address] 13231- 1728 Feb, Nicotine abuse 305.1 ; Arthralgia 719.40 and 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 [facility] [id number] [place] [address] 227374- 8446 Feb, [facility] [id number] [place] [address] [id number]- 0346 Jan, [facility] [address] [address] 2207 16 Jan, 2014 [facility] [address], [place] [address] 0928 Jan, [facility] [address] [address] 1555 Jan, [facility] [id number] [place] [address] 77248- 7940 Jan, 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 ; Rheumatoid arthritis 714.0 ; Hypertension 401.9 ; GERD (gastroesophageal reflux disease) 530.81 ; Nicotine addiction 305.1 and Leukocytosis 288.60 [facility] [address], [place] [address]- 5372 Jan, 2014 [facility] [address], [place] [address]- 8290 Jan, [facility] [address], [place] [address]- 5814 Jan, [facility] [address], [place] [address]- 1616 Jan, [facility] [address], [place] [address]- 6251 Jan, [facility] [address], [place] [address]- 5817 Dec, [facility] [address], [place] [address]- 8707 Dec, [facility] [address], [place] [address]- 3428 Dec, [facility] [address] [address]- 1117 Dec, [facility] [id number] [address]- 8512 November, [facility] [id number] [place] [address] [id number]- 8620 November, [facility] [id number] [place] [address] 636378- 7308 November, Shortness of breath 786.05 [facility] [id number] [place] [address] 98479- 2879 November, Rheumatoid arthritis 714.0 [facility] [id number] [place] [address] 10123- 1590 November, 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 [facility] [id number] [place] [address] 372131- 0790 November, Neuropathy 355.9 ; Insomnia 780.52 ; Dysthymia 300.4 ; Shortness of breath 786.05 ; Rheumatoid arthritis 714.0 and Nausea 787.02 [facility] [id number] [place] [address] 62827- 1579 November, [facility] [id number] [place] [address] 50540- 8215 November, [facility] [id number] [place] [address] 26831- 7370 Oct, [facility] [id number] [place] [address] 20757- 5091 Oct, [facility] [id number] [address]- 9551 Oct, [facility] [id number] [place] [address] 69023- 3835 Oct, [facility] [id number] [place] [address] 59890- 9136 Sep, [facility] [id number] [place] [address] 60409- 8943 Sep, [facility] [id number] [address]- 3255 Sep, [facility] [address] [facility] [place] [address]- 6659 Sep, [facility] [place] [facility] [address] [id number] [place] [address]- 5453 Sep, [facility] [place] [facility] [address] [id number] [place] [address]- 8477 Sep, [facility] [place] [facility] [address] [id number] [place] [address]- 8462 Sep, [facility] [place] [facility] [address] [id number] [place] [address]- 8104 Sep, [facility] [place] [facility] [address] [id number] [place] [address]- 4068 Aug, [facility] [place] [facility] [address] [id number] [place] [address]- 8902 Aug, [facility] [place] [facility] [address] [id number] [place] [address]- 6908 Aug, [facility] [place] [facility] [address] [id number] [place] [address]- 5137 Aug, [facility] [place] [facility] [address] [id number] [place] [address]- 5784 Aug, [facility] [place] [facility] [address] [facility] [id number] [place] [address]- 2457 Aug, [facility] [place] [facility] [address] [id number] [place] [address]- 7254 Jul, [facility] [place] [facility] [address] [id number] [place] [address]- 2248 Jul, [facility] [place] [facility] [address] [id number] [place] [address]- 3460 Jul, [facility] [place] [facility] [address] [id number] [place] [address]- 9386 Jul, [facility] [place] [facility] [address] [facility] [id number] [place] [address]- 1037 Jul, [facility] [place] [facility] [address] [id number] [place] [address]- 4260 Jul, [facility] [place] [facility] [address] [id number] [place] [address]- 1672 Jul, [facility] [place] [facility] [address] [id number] [place] [address]- 1341 Jul, [facility] [place] [facility] [address] [id number] [place] [address]- 1484 Jul, [facility] [place] [facility] [address] [id number] [place] [address]- 4299 Jul, [facility] [place] [facility] [address] [id number] [place] [address]- 8126 Jun, [facility] [place] [facility] [address] [id number] [place] [address]- 2544 Jun, [facility] [place] [facility] [address] [id number] [place] [address]- 5913 Jun, [facility] [place] [facility] [address] [id number] [place] [address]- 6380 Jun, [facility] [place] [facility] [address] [id number] [place] [address]- 5688 Jun, [facility] [place] [facility] [address] [id number] [place] [address]- 1431 Jun, [facility] [place] [facility] [address] [id number] [place] [address]- 2302 Jun, [facility] [place] [facility] [address] [id number] [place] [address]- 9191 Jun, [facility] [place] [facility] [address] [id number] [place] [address]- 7197 Jun, [facility] [place] [facility] [address] [id number] [place] [address]- 4044 Jun, [facility] [place] [facility] [address] [id number] [place] [address]- 8003 08 Jun, 2014 [facility] [place] [facility] [address] [id number] [place] [address]- 2305 08 Jun, 2014 [facility] [place] [facility] [address] [id number] [place] 6447 Jun, [facility] [place] [facility] [address] [id number] [place] [address]- 2640 Jun, [facility] [place] [facility] [address] [id number] [place] [address]- 2375 Jun, [facility] [place] [facility] [address] [id number] [place] [address]- 7723 Jun, [facility] [place] [facility] [address] [id number] [place] [address]- 1029 May, [facility] [place] [facility] [address] [id number] [place] [address]- 1327 May, [facility] [place] [facility] [address] [id number] [place] [address]- 7133 May, [facility] [place] [facility] [address] [id number] [place] [address]- 4211 May, [facility] [place] [facility] [address] [facility] [id number] [place] [address]- 4288 May, [facility] [place] [facility] [address] [id number] [place] [address]- 0641 May, [facility] [place] [facility] [address] [id number] [place] [address]- 4355 May, [facility] [place] [facility] [address] [id number] [place] [address]- 6365 May, [facility] [place] [facility] [address] [id number] [place] [address]- 6645 May, [facility] [place] [facility] [address] [id number] [place] [address]- 3281 Apr, [facility] [place] [facility] [address] [id number] [place] [address]- 1472 Apr, [facility] [place] [facility] [address] [id number] [place] [address]- 1575 Apr, [facility] [place] [facility] [address] [id number] [place] [address]- 7577 Apr, [facility] [place] [facility] [address] [id number] [place] [address]- 0240 Apr, [facility] [place] [facility] [address] [id number] [place] [address]- 7512 Apr, [facility] [place] [facility] [address] [id number] [place] [address]- 6097 Apr, [facility] [place] [facility] [address] [id number] [place] [address]- 6655 Apr, [facility] [place] [facility] [address] [id number] [place] [address]- 3192 Apr, [facility] [place] [facility] [address] [id number] [place] [address]- 5956 Apr, [facility] [place] [facility] [address] [id number] [place] [address]- 6181 Apr, [facility] [place] [facility] [address] [id number] [place] [address]- 7764 Apr, [facility] [place] [facility] [address] [id number] [place] [address]- 6730 Mar, [facility] [place] [facility] [address] [id number] [place] [address]- 7999 Mar, [facility] [place] [facility] [address] [id number] [place] [address]- 5864 Mar, [facility] [place] [facility] [address] [id number] [place] [address]- 4150 Mar, [facility] [place] [facility] [address] [id number] [place] [address]- 6424 Mar, [facility] [place] [facility] [address] [id number] [place] [address]- 9382 Mar, [facility] [place] [facility] [address] [id number] [place] [address]- 6808 Mar, [facility] [place] [facility] [address] [id number] [place] [address]- 1216 Mar, [facility] [place] [facility] [address] [id number] [place] [address]- 0462 Mar, [facility] [place] [facility] [address] [id number] [place] [address]- 8902 Mar, [facility] [place] [facility] [address] [id number] [place] [address]- 2737 Feb, [facility] [place] [facility] [address] [id number] [place] [address]- 4842 Feb, [facility] [place] [facility] [address] [id number] [place] [address]- 9581 Feb, [facility] [place] [facility] [address] [id number] [place] [address]- 1934 Feb, [facility] [place] [facility] [address] [id number] [place] [address]- 3224 Feb, [facility] [place] [facility] [address] [id number] [place] [address]- 6626 Feb, [facility] [place] [facility] [address] [id number] [place] [address]- 3174 Feb, [facility] [place] [facility] [address] [id number] [place] [address]- 6619 Feb, [facility] [place] [facility] [address] [id number] [place] [address]- 6149 Feb, [facility] [place] [facility] [address] [id number] [place] [address]- 9676 Feb, [facility] [place] [facility] [address] [id number] [place] [address]- 8836 Feb, [facility] [place] [facility] [address] [id number] [place] [address]- 2641 Feb, [facility] [place] [facility] [address] [id number] [place] [address]- 2612 Feb, [facility] [place] [facility] [address] [id number] [place] [address]- 3995 Feb, [facility] [place] [facility] [address] [id number] [place] [address]- 7245 Feb, [facility] [place] [facility] [address] [id number] [place] [address]- 0239 Feb, [facility] [place] [facility] [address] [id number] [place] [address]- 9707 Jan, [facility] [place] [facility] [address] [id number] [place] [address]- 3075 Jan, [facility] [place] [facility] [address] [id number] [place] [address]- 7295 Jan, [facility] [place] [facility] [address] [id number] [place] [address]- 3878 Jan, [facility] [place] [facility] [address] [id number] [place] [address]- 1224 Jan, [facility] [place] [facility] [address] [id number] [place] [address]- 1088 Jan, [facility] [place] [facility] [address] [id number] [place] [address]- 2589 Dec, [facility] [place] [facility] [address] [id number] [place] [address]- 5590 Dec, [facility] [place] [facility] [address] [id number] [place] [address]- 2098 Dec, [facility] [place] [facility] [address] [id number] [place] [address]- 4731 Dec, [facility] [place] [facility] [address] [id number] [place] [address]- 5658 Dec, [facility] [place] [facility] [address] [id number] [place] [address]- 1460 Dec, [facility] [place] [facility] [address] [id number] [place] [address]- 4056 Dec, [facility] [place] [facility] [address] [id number] [place] [address]- 0148 Dec, [facility] [place] [facility] [address] [id number] [place] [address]- 9972 November, [facility] [place] [facility] [address] [id number] [place] [address]- 2714 November, [facility] [place] [facility] [address] [id number] [place] [address]- 0718 November, [facility] [place] [facility] [address] [id number] [place] [address]- 3087 November, [facility] [place] [facility] [address] [id number] [place] [address]- 2733 November, [facility] [place] [facility] [address] [id number] [place] [address]- 6819 November, [facility] [place] [facility] [address] [id number] [place] [address]- 3478 Oct, [facility] [place] [facility] [address] [id number] [place] [address]- 6654 Oct, [facility] [place] [facility] [address] [id number] [place] [address]- 8087 Oct, [facility] [place] [facility] [address] [id number] [place] [address]- 7225 Oct, [facility] [place] [facility] [address] [id number] [place] [address]- 3752 Sep, [facility] [place] [facility] [address] [id number] [place] [address]- 9384 Sep, [facility] [place] [facility] [address] [id number] [place] [address]- 8279 Sep, [facility] [place] [facility] [address] [id number] [place] [address]- 4377 Sep, [facility] [place] [facility] [address] [id number] [place] [address]- 0880 Sep, [facility] [place] [facility] [address] [id number] [place] [address]- 6811 Sep, [facility] [place] [facility] [address] [id number] [place] [address]- 3493 Aug, [facility] [place] [facility] [address] [id number] [place] [address]- 8525 Aug, [facility] [place] [facility] [address] [id number] [place] [address]- 9011 Aug, [facility] [place] [facility] [address] [id number] [place] [address]- 9800 Aug, [facility] [place] [facility] [address] [id number] [place] [address]- 9187 Aug, [facility] [place] [facility] [address] [facility] [id number] [place] [address]- 7735 Aug, [facility] [place] [facility] [address] [id number] [place] [address]- 8293 Jul, [facility] [place] [facility] [address] [id number] [place] [address]- 8292 Jul, [facility] [place] [facility] [address] [id number] [place] [address]- 8333 Jul, [facility] [place] [facility] [address] [id number] [place] [address]- 9703 Jul, [facility] [place] [facility] [address] [id number] [place] [address]- 1570 Jul, [facility] [place] [facility] [address] [id number] [place] [address]- 1836 Jul, [facility] [address] [id number] [place] [address]- 7947 Jul, [facility] [address] [id number] [place] [address]- 7544 Jul, [facility] [address] [id number] [place] [address]- 6546 Jul, [facility] [address] [id number] [place] [address]- 0963 Jul, [facility] [address] [id number] [place] [address]- 8077 Jul, [facility] [address] [id number] [place] [address]- 7337 Jul, [facility] [address] [id number] [place] [address]- 0002 Jul, [facility] [address] [id number] [place] [address]- 1643 Jul, [facility] [address] [id number] [place] [address]- 7722 Jul, [facility] [address] [id number] [place] [address]- 7128 Jun, [facility] [address] [id number] [place] [address]- 6337 Jun, [facility] [place] [facility] [address] [id number] [place] [address]- 5282 Jun, [facility] [place] [facility] [address] [id number] [place] [address]- 1575 Jun, [facility] [place] [facility] [address] [id number] [place] [address]- 3851 May, [facility] [place] [facility] [address] [id number] [address]- 4973 May, [facility] [address] [id number] [id number] May, [facility] [address] [address]- 9863 May, [facility] [address] [address]- 0746 May, [facility] [address] [id number] [address]- 8872 May, [facility] [address], [place] [address]- 3333 May, [facility] [id number] [place] [address]- 7466 May, [facility] [address], [place] [address]- 4598 May, [facility] [id number] [id number] May, [facility] [address], [place] [address]- 0414 May, [facility] [address] [id number] May, [facility] [address], [place] [address]- 3977 May, [facility] [address] [id number] May, [facility] [id number] [address] 5762 May, IMMUNIZATIONS No Known Immunizations SOCIAL HISTORY Never Assessed REASON FOR VISIT Question PLAN OF CARE VITAL SIGNS MEDICATIONS Unknown [...] 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
--- OUTSIDE RECORDS SUMMARY | 2018-03-18 20:10 | XMS REPORT ---
Author Author DAPHNE YUSUF Organization [facility] Address [address] [place] [address] Care Team Providers Care It Field Technician Name Role Phone DAPHNE YUSUF Unavailable PROBLEMS Type Condition ICD9-CM Code JHA96-YN Code Onset Dates Condition Status SNOMED Code Problem Hx of Clostridium difficile infection Z86.19 Active 023141852 Problem History of arthroplasty of right knee Z96.651 Active 936920674 Problem Dysphagia, unspecified dysphagia R13.10 Active 71476677 Problem Chronic pain syndrome G89.4 Active 504244025 Problem 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 145607274 Problem Anxiety F41.9 Active 53722473 Problem Leg pain, left M79.605 Active 958539697 Problem Depression, unspecified depression type F32.9 Active 33224851 Problem Iron deficiency anemia, unspecified iron deficiency anemia type D50.9 Active 50870883 Problem Anemia, unspecified type D64.9 Active 039927944 Problem Seasonal allergic rhinitis due to pollen J30.1 Active 60922510 Problem Insomnia, unspecified G47.00 Active 040944797 Problem 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 723423059 Problem History of cerebrovascular accident with current residual effects I69.90 Active 746026914 Problem Peripheral vascular disease, unspecified I73.9 Active 966331476 Problem Rheumatoid arthritis, involving unspecified site, unspecified rheumatoid factor presence M06.9 Active 92121512 Problem Other chronic pain G89.29 Active 32779067 Problem Primary insomnia F51.01 Active 3267417 Problem Chronic obstructive pulmon disease w acute lower resp infct J44.0 Active 869262056 Problem Atrial fibrillation I48.91 Active 98760922 Problem Dysthymia F34.1 Active 34468961 Problem Osteoarthritis of foot M19.079 Active 381795686 Problem Rheumatoid arthritis M06.9 Active 24191014 Problem Tobacco abuse, 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 504787041 Problem Edema R60.9 Active 366950371 Problem COPD (chronic obstructive pulmonary disease) J44.9 Active 42953128 Problem Hypertension I10 Active 99646077 ALLERGIES No Information ENCOUNTERS Encounter Location Date Diagnosis [facility] [id number] [place] [address] 56299- 5966 Jan, Chronic pain syndrome G89.4 [facility] [id number] [place] [address] 33296- 2220 Jan, [facility] [id number] [place] [address] 43656- 9285 Dec, Chronic pain syndrome G89.4 [facility] [address] 41741- 9609 November, Chronic pain syndrome G89.4 [facility] [id number] [place] [address] 09546- 4311 November, [facility] [id number] [place] [address] 69135- 6068 Oct, Chronic pain syndrome G89.4 [facility] [id number] [place] [address] 90503- 2001 Oct, [facility] [id number] [place] [address] 55478- 1709 Oct, Chronic pain syndrome G89.4 [facility] [id number] [place] [address] 25460- 9651 Oct, [facility] [id number] [place] [address] 65524- 4285 Oct, [facility] [id number] [place] [address] 64177- 6266 Sep, Left upper quadrant pain R10.12 ; Chronic pain syndrome G89.4 ; Left lower quadrant pain R10.32 ; Other chronic pain G89.29 ; Sacrococcygeal disorders, not elsewhere classified M53.3 and Seasonal allergic rhinitis due to pollen J30.1 [facility] [address] [address] 0012 Sep, Chronic pain syndrome G89.4 [facility] [id number] [place] [address] 60646- 5046 Sep, [facility] [address] [address] 0066 Aug, Chronic pain syndrome G89.4 [facility] [id number] [place] [address] 94709- 6576 Aug, [facility] [id number] [place] [address] 81896- 5420 Aug, Insomnia, unspecified G47.00 [facility] [id number] [place] [address] 17512- 9946 Jul, [facility] [id number] [place] [address] 57860- 0209 Jul, [facility] [address] [address] 2054 Jul, Chronic pain syndrome G89.4 [facility] [address] [address]- 5471 Jun, Chronic pain syndrome G89.4 [facility] [address] [address] 8000 Jun, Chronic pain syndrome G89.4 [facility] [address] [address]- 3006 May, [facility] [address] [address]- 2159 May, Shortness of breath R06.02 ; Peripheral vascular disease, unspecified I73.9 ; Pain in right knee M25.561 ; Other chronic pain G89.29 ; Chest wall pain R07.89 ; Chronic pain syndrome G89.4 ; Primary insomnia F51.01 and Ear pain, left H92.02 [facility] [id number] [place] [address] 04170- 7557 May, Anxiety F41.9 [facility] [address] 18901- 1317 Apr, Pneumonia due to infectious organism, unspecified laterality , unspecified part of lung J18.9 ; Hypoxia R09.02 ; Bradycardia R00.1 ; History of Clostridium difficile Z87.19 and Primary insomnia F51.01 [facility] [address] 78321- 6781 Apr, Anxiety F41.9 [facility] [address] 67030- 6702 Apr, [facility] [address] 58471- 8618 Mar, Anxiety F41.9 [facility] [address] 39688- 4863 Feb, [facility] [address] 92735- 0161 Feb, [facility] [address] 92115- 4543 Feb, Abnormal finding on urinalysis R82.90 [facility] [address] 02080- 4808 Feb, [facility] [address] 98808- 1192 Feb, Shortness of breath R06.02 ; Tachycardia R00.0 ; Cough R05 ; Ill feeling R68.89 and Abnormal finding on urinalysis R82.90 [facility] [address] 77103- 7829 Feb, Anxiety F41.9 [facility] [id number] [place] [address] 43132 -3242 Feb, Sore throat J02.9 and Acute diffuse otitis externa of left ear H60.312 [facility] [address] [place] [address] 04537- 5161 Jan, [facility] [id number] [place] [address] 40982- 5612 Jan, [facility] [id number] [place] [address] [id number] Jan, [facility] [id number] [place] [address] 00269- 0932 Jan, Depression, unspecified depression type F32.9 ; Chronic bronchitis, unspecified chronic bronchitis type J42 ; Chronic pain syndrome G89.4 and Anxiety F41.9 [facility] [id number] [place] [address] 01264- 0754 Jan, [facility] [id number] [place] [address] 80117- 0310 Jan, [facility] [id number] [place] [address] 33584- 4739 Jan, [facility] [id number] [place] [address] [id number] Jan, Chronic pain syndrome G89.4 [facility] [address] [place] [id number] Dec, History of right knee surgery Z98.890 [facility] [id number] [place] [address] 29519- 8107 Dec, [facility] [id number] [place] [address] 87819- 9462 Dec, Chronic pain syndrome G89.4 [facility] [id number] [place] [address] 24408- 8788 November, Anxiety F41.9 [facility] [id number] [place] [address] 17358 -4582 November, Acute cystitis without hematuria N30.00 [facility] [id number] [place] [address] 08348 -6552 November, Fever, unspecified fever cause R50.9 and Acute cystitis without hematuria N30.00 [facility] [id number] [place] [address] 31050- 3461 November, Chronic pain syndrome G89.4 [facility] [id number] [place] [address] 86274- 1592 Oct, Anxiety F41.9 [facility] [id number] [place] [address] 44432- 9213 Oct, Chronic pain syndrome G89.4 [facility] [id number] [place] [address] 15596- 9179 Oct, Chronic pain syndrome G89.4 [facility] [id number] [place] [address] 66160- 8309 Oct, [facility] [id number] [place] [address] 99134- 4097 Oct, Chronic pain syndrome G89.4 ; Pain in right knee M25.561 ; History of Clostridium difficile Z87.19 ; Iron deficiency anemia, unspecified iron deficiency anemia type D50.9 ; Peripheral vascular disease, unspecified I73.9 and Atrial fibrillation I48.91 [facility] [id number] [place] [address] 48381- 4056 Oct, [facility] [id number] [place] [address] 91121- 4706 Oct, Chronic pain syndrome G89.4 [facility] [id number] [place] [address] 82755- 5231 Sep, [facility] [id number] [place] [address] 13346- 5040 Sep, Depression, unspecified depression type F32.9 ; Chronic bronchitis, unspecified chronic bronchitis type J42 ; Chronic pain syndrome G89.4 and Anxiety F41.9 [facility] [address] [place] [id number] Sep, History of Clostridium difficile infection Z86.19 and History of stroke Z86.73 [facility] [id number] [place] [address] [id number] Sep, Anxiety F41.9 [facility] [address], [place] [address] 2546 08 Sep, 2016 Chronic pain syndrome G89.4 [facility] [id number] [place] [address] 74763 2546 Sep, [facility] [id number] [place] [address] [id number] Sep, [facility] [id number] [place] [address] 86507- 4456 Aug, Anxiety F41.9 [facility] [id number] [place] [address] 25216- 4606 Aug, Anxiety F41.9 [facility] [id number] [place] [address] 66357 2549 16 Aug, 2016 [facility] [id number] [place] [address] 91551- 1891 14 Aug, 2016 Acute knee pain, unspecified laterality M25.569 [facility] [address] [address]- 2771 13 Aug, 2016 [facility] [address], [place] [address]- 2541 09 Aug, 2016 Chronic pain syndrome G89.4 [facility] [address], [place] [address] 2546 Aug, [facility] [id number] [place] [address] 42965 2546 Aug, [facility] [address], [place] [address] 2546 Jul, [facility] [id number] [place] [address] 13757- 3531 Jul, Anxiety F41.9 [facility] [id number] [place] [address] 40430- 9841 Jul, Clostridium difficile diarrhea A04.7 [facility] [address] [place] [id number] Jul, Clostridium difficile diarrhea A04.7 ; Chronic pain syndrome G89.4 ; Chronic obstructive pulmon disease w acute lower resp infct J44.0 and Pain in right knee M25.561 [facility] [id number] [place] [address] [id number] Jul, [facility] [id number] [place] [address] 49276 -4736 Jul, Anxiety F41.9 and Chronic pain syndrome G89.4 [facility] [id number] [place] [address] 90073- 9820 Jun, Anxiety F41.9 [facility] [id number] [place] [address] 15640- 8645 Jun, Rheumatoid arthritis 714.0 [facility] [id number] [place] [address] 21212- 8795 Jun, Chronic pain syndrome G89.4 [facility] [id number] [place] [address] 58395- 6932 Jun, [facility] [id number] [place] [address] 21719- 1448 Jun, [facility] [id number] [place] [address] 47247- 9728 Jun, History of pneumonia Z87.01 and History of Clostridium difficile Z87.19 [facility] [id number] [place] [address] 86297- 0390 Jun, [facility] [address], [place] [address]- 2409 May, [facility] [id number] [place] [address] 11891- 5558 May, Anxiety F41.9 [facility] [id number] [place] [address] 31084- 7146 May, Chronic pain syndrome G89.4 [facility] [id number] [place] [address] 60575- 9036 May, Chronic bronchitis, unspecified chronic bronchitis type J42 [facility] [id number] [place] [address] 89083- 7236 May, [facility] [id number] [place] [address] 84103- 0840 May, C. difficile diarrhea A04.7 ; Peripheral edema R60.9 ; COPD (chronic obstructive pulmonary disease) J44.9 ; Rheumatoid arthritis, involving unspecified site, unspecified rheumatoid factor presence M06.9 ; Pain in right knee M25.561 ; Pain in left knee M25.562 and Other chronic pain G89.29 [facility] [id number] [place] [address] 92661 2546 May, [facility] [id number] [place] [address] 68283- 1548 May, [facility] [id number] [place] [address] 12076- 4651 May, Anxiety F41.9 [facility] [id number] [place] [address] 65470 2546 Apr, [facility] [id number] [place] [address] 90542 2546 Apr, Chronic pain syndrome G89.4 [facility] [id number] [place] [address] 42901 2546 Apr, Leg pain, left M79.605 [facility] [id number] [place] [address] 50269 2546 Apr, [facility] [address] [address]- 2786 Apr, [facility] [id number] [place] [address] 16736- 0338 Apr, [facility] [id number] [place] [address] 81094- 8373 Mar, Chronic pain syndrome G89.4 [facility] [id number] [place] [address] 21319- 0775 Mar, Acute frontal sinusitis, recurrence not specified J01.10 [facility] [id number] [place] [address] 68590- 7153 20 Mar, 2016 Iron deficiency anemia, unspecified iron deficiency anemia type D50.9 ; Rheumatoid arthritis with positive rheumatoid factor, involving unspecified site M05.9 and Depression, unspecified depression type F32.9 [facility] [id number] [place] [address] 11165- 5216 Mar, Iron deficiency anemia, unspecified iron deficiency anemia type D50.9 ; Depression, unspecified depression type F32.9 and Rheumatoid arthritis with positive rheumatoid factor, involving unspecified site M05.9 [facility] [id number] [place] [address] 32096- 5422 Mar, [facility] [id number] [place] [address] 21027- 7861 Mar, [facility] [id number] [place] [address] 19907- 3686 Feb, Chronic pain syndrome G89.4 [facility] [address] [place] [address] 11471- 3052 Feb, 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 ; Status post CVA Z86.73 ; Hemiplegia G81.90 and Anemia, unspecified type D64.9 [facility] [id number] [place] [address] 27359- 1005 Feb, [facility] [id number] [place] [address] 07587- 5231 Feb, Anemia, unspecified type D64.9 [facility] [id number] [place] [address] 98937- 5356 Feb, [facility] [id number] [place] [address] 15126- 7550 Feb, Iron deficiency anemia, unspecified iron deficiency anemia type D50.9 [facility] [id number] [place] [address] 41858- 0610 Feb, [facility] [id number] [place] [address] 67229- 7926 Feb, Chronic bronchitis, unspecified chronic bronchitis type J42 [facility] [id number] [place] [address] 38229- 9334 Feb, Iron deficiency anemia, unspecified iron deficiency anemia type D50.9 [facility] [id number] [place] [address] 13729- 2460 Feb, Chronic pain syndrome G89.4 [facility] [id number] [place] [address] 73201- 6421 Feb, Anemia, unspecified type D64.9 and Hypoxia R09.02 [facility] [id number] [place] [address] 66177- 0955 Feb, Anemia, unspecified type D64.9 [facility] [id number] [place] [address] 17598- 2549 Jan, [facility] [id number] [place] [address] 39272- 6304 Jan, Anemia, unspecified type D64.9 [facility] [id number] [place] [address] 60017- 4640 Jan, [facility] [id number] [place] [address] 17147- 8457 Jan, Anemia, unspecified type D64.9 [facility] [address] [address]- 2215 Jan, Anemia, unspecified type D64.9 [facility] [id number] [place] [address] 42111- 0193 Jan, [facility] [id number] [place] [address] 20024- 3661 Jan, Anemia, unspecified type D64.9 [facility] [id number] [place] [address] 99272- 0288 Jan, [facility] [id number] [place] [address] 32095- 4447 Jan, [facility] [id number] [place] [address] 70695- 8056 Jan, Chronic pain syndrome G89.4 [facility] [id number] [place] [address] 60847- 7783 Jan, Anemia, unspecified type D64.9 [facility] [id number] [place] [address] 69241- 8897 Jan, Dysthymia F34.1 ; Cervicalgia M54.2 ; Fatigue, unspecified type R53.83 and Depression, unspecified depression type F32.9 [facility] [id number] [place] [address] 24317- 2206 Dec, [facility] [id number] [place] [address] 68346- 2569 Dec, Anxiety F41.9 [facility] [id number] [place] [address] 21437- 7328 Dec, Chronic pain syndrome G89.4 [facility] [id number] [place] [address] 09189- 0957 November, [facility] [id number] [place] [address] 05411- 6934 November, Edema R60.9 and Dizziness R42 [facility] [id number] [place] [address] 10766- 2437 November, [facility] [id number] [place] [address] 83005- 7042 November, [facility] [id number] [place] [address] 93412- 9131 November, COPD (chronic obstructive pulmonary disease) J44.9 ; Increased tracheal secretions J39.8 and Edema R60.9 [facility] [id number] [place] [address] 96701 -7122 Oct, [facility] [address] 21579 -8639 Oct, Shortness of breath R06.02 and Edema R60.9 [facility] [id number] [place] [address] 26820- 8629 Oct, Chronic bronchitis, unspecified chronic bronchitis type J42 ; Peripheral vascular disease, unspecified I73.9 ; Rheumatoid arthritis M06.9 and Atrial fibrillation I48.91 [facility] [id number] [place] [address] 42026- 9914 Oct, [facility] [id number] [place] [address] 87177- 4840 Oct, [facility] [id number] [place] [address] 13950- 6326 Oct, [facility] [id number] [place] [address] 64720- [phone] Oct, [facility] [id number] [place] [address] [phone] Oct, COPD exacerbation J44.1 [facility] [id number] [place] [address] [phone]- [phone] Sep, [facility] [id number] [place] [address] [phone]- [phone] Sep, [facility] [address] [address] Sep, [facility] [id number] [place] [address] [phone]- [phone] Aug, [facility] [id number] [place] [address] [phone] Aug, 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 and PVD (peripheral vascular disease ) I73.9 [facility] [id number] [place] [address] [phone] Aug, Bronchitis J40 ; COPD (chronic obstructive pulmonary disease ) J44.9 and Dysthymia F34.1 [facility] [id number] [place] [address] [phone]- [phone] Aug, [facility] [id number] [place] [address] [phone]- [phone] Jul, [facility] [id number] [place] [address] [phone]- [phone] Jul, [facility] [id number] [place] [address] [phone]- [phone] Jul, [facility] [address] [address] Jun, [facility] [id number] [place] [address] 68238- 2166 Jun, [facility] [address] [address] 2189 Jun, Peripheral vascular disease I73.9 [facility] [id number] [place] [address], [place] [address]- 1730 Jun, [facility] [id number] [address] 9393 Jun, [facility] [id number] [place] [address] 26785- 8334 Jun, Leg pain, left M79.605 ; Dysphagia, unspecified dysphagia R13.10 ; Insomnia, unspecified type G47.00 ; PVD (peripheral vascular disease) I73.9 and 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 [facility] [id number] [place] [address] 07288- 8793 May, [facility] [id number] [place] [address] 53974- 7767 May, [facility] [id number] [place] [address] 40698- 6347 May, [facility] [id number] [place] [address] 77196- 7490 May, [facility] [id number] [place] [address] 16472- 7062 May, [facility] [id number] [place] [address] 91984- 3226 Apr, [facility] [id number] [place] [address] 57915- 6671 Apr, [facility] [id number] [place] [address] 47135- 7604 Mar, [facility] [id number] [place] [address] 49518- 7240 Mar, [facility] [id number] [place] [address] 67911- 6024 Feb, [facility] [id number] [place] [address] 20613- 9448 Feb, Nicotine abuse 305.1 ; Arthralgia 719.40 and 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 [facility] [id number] [place] [address] 664218- 1996 Feb, [facility] [id number] [place] [address] [id number]- 2246 Jan, [facility] [address], [place] [address]- 6598 16 Jan, 2014 [facility] [address] [address]- 4735 Jan, [facility] [address], [place] [address]- 5573 Jan, [facility] [id number] [place] [address] 63668- 7015 Jan, 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 ; Rheumatoid arthritis 714.0 ; Hypertension 401.9 ; GERD (gastroesophageal reflux disease) 530.81 ; Nicotine addiction 305.1 and Leukocytosis 288.60 [facility] [address] [address]- 5690 Jan, 2014 [facility] [address] [address]- 9256 Jan, [facility] [address], [place] [address]- 3728 Jan, [facility] [address] [address]- 4855 Jan, [facility] [address] [address]- 3075 Jan, [facility] [address], [place] [address]- 0967 Dec, [facility] [address], [place] [address]- 0885 Dec, [facility] [address], [place] [address]- 8858 Dec, [facility] [address] [address]- 9965 Dec, [facility] [id number] [address]- 0478 November, [facility] [id number] [place] [address] [id number]- 0651 November, [facility] [id number] [place] [address] 387105- 7148 November, Shortness of breath 786.05 [facility] [id number] [place] [address] 07678- 8191 November, Rheumatoid arthritis 714.0 [facility] [id number] [place] [address] 84893- 8615 November, 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 [facility] [id number] [place] [address] 506331- 4925 November, Neuropathy 355.9 ; Insomnia 780.52 ; Dysthymia 300.4 ; Shortness of breath 786.05 ; Rheumatoid arthritis 714.0 and Nausea 787.02 [facility] [id number] [place] [address] 86537- 7254 November, [facility] [id number] [place] [address] 48644- 9931 November, [facility] [id number] [place] [address] 89509- 2634 Oct, [facility] [id number] [place] [address] 66496- 6531 Oct, [facility] [id number] [address]- 5233 Oct, [facility] [id number] [place] [address] 88136- 5685 Oct, [facility] [id number] [place] [address] 08122- 5204 Sep, [facility] [id number] [place] [address] 26293- 9728 Sep, [facility] [id number], [place] [address]- 0486 Sep, [facility] [address] [address] [place] [address]- 4395 Sep, [facility] [place] [facility] [address] [id number] [place] [address]- 9566 Sep, [facility] [place] [facility] [address] [id number] [place] [address]- 1676 Sep, [facility] [place] [facility] [address] [id number] [place] [address]- 7714 Sep, [facility] [place] [facility] [address] [id number] [place] [address]- 5265 Sep, [facility] [place] [facility] [address] [id number] [place] [address]- 7100 Aug, [facility] [place] [facility] [address] [id number] [place] [address]- 6721 Aug, [facility] [place] [facility] [address] [id number] [place] [address]- 5885 Aug, [facility] [place] [facility] [address] [id number] [place] [address]- 0547 Aug, [facility] [place] [facility] [address] [id number] [place] [address]- 5971 Aug, [facility] [place] [facility] [address] [facility] [id number] [place] [address]- 0181 Aug, [facility] [place] [facility] [address] [id number] [place] [address]- 4580 Jul, [facility] [place] [facility] [address] [id number] [place] [address]- 9611 Jul, [facility] [place] [facility] [address] [id number] [place] [address]- 5245 Jul, [facility] [place] [facility] [address] [id number] [place] [address]- 7496 Jul, [facility] [place] [facility] [address] [facility] [id number] [place] [address]- 5255 Jul, [facility] [place] [facility] [address] [id number] [place] [address]- 3851 Jul, [facility] [place] [facility] [address] [id number] [place] [address]- 3912 Jul, [facility] [place] [facility] [address] [id number] [place] [address]- 8952 Jul, [facility] [place] [facility] [address] [id number] [place] [address]- 9495 Jul, [facility] [place] [facility] [address] [id number] [place] [address]- 0187 Jul, [facility] [place] [facility] [address] [id number] [place] [address]- 6635 Jun, [facility] [place] [facility] [address] [id number] [place] [address]- 0424 Jun, [facility] [place] [facility] [address] [id number] [place] [address]- 7985 Jun, [facility] [place] [facility] [address] [id number] [place] [address]- 5032 Jun, [facility] [place] [facility] [address] [id number] [place] [address]- 3442 Jun, [facility] [place] [facility] [address] [id number] [place] [address]- 8468 Jun, [facility] [place] [facility] [address] [id number] [place] [address]- 9339 Jun, [facility] [place] [facility] [address] [id number] [place] [address]- 8000 Jun, [facility] [place] [facility] [address] [id number] [place] [address]- 4339 Jun, [facility] [place] [facility] [address] [id number] [place] [address]- 3832 Jun, [facility] [place] [facility] [address] [id number] [place] [address]- 3561 08 Jun, 2014 [facility] [place] [facility] [address] [id number] [place] [address]- 8031 08 Jun, 2014 [facility] [place] [facility] [address] [id number] [place] 9541 Jun, [facility] [place] [facility] [address] [id number] [place] [address]- 4943 Jun, [facility] [place] [facility] [address] [id number] [place] [address]- 3675 Jun, [facility] [place] [facility] [address] [id number] [place] [address]- 6274 Jun, [facility] [place] [facility] [address] [id number] [place] [address]- 1122 May, [facility] [place] [facility] [address] [id number] [place] [address]- 0947 May, [facility] [place] [facility] [address] [id number] [place] [address]- 7007 May, [facility] [place] [facility] [address] [id number] [place] [address]- 8295 May, [facility] [place] [facility] [address] [facility] [id number] [place] [address]- 9390 May, [facility] [place] [facility] [address] [id number] [place] [address]- 4066 May, [facility] [place] [facility] [address] [id number] [place] [address]- 7899 May, [facility] [place] [facility] [address] [id number] [place] [address]- 9877 May, [facility] [place] [facility] [address] [id number] [place] [address]- 1868 May, [facility] [place] [facility] [address] [id number] [place] [address]- 9630 Apr, [facility] [place] [facility] [address] [id number] [place] [address]- 5329 Apr, [facility] [place] [facility] [address] [id number] [place] [address]- 5080 Apr, [facility] [place] [facility] [address] [id number] [place] [address]- 6592 Apr, [facility] [place] [facility] [address] [id number] [place] [address]- 1241 Apr, [facility] [place] [facility] [address] [id number] [place] [address]- 4248 Apr, [facility] [place] [facility] [address] [id number] [place] [address]- 1466 Apr, [facility] [place] [facility] [address] [id number] [place] [address]- 0125 Apr, [facility] [place] [facility] [address] [id number] [place] [address]- 4972 Apr, [facility] [place] [facility] [address] [id number] [place] [address]- 9876 Apr, [facility] [place] [facility] [address] [id number] [place] [address]- 4672 Apr, [facility] [place] [facility] [address] [id number] [place] [address]- 6130 Apr, [facility] [place] [facility] [address] [id number] [place] [address]- 0738 Mar, [facility] [place] [facility] [address] [id number] [place] [address]- 8518 Mar, [facility] [place] [facility] [address] [id number] [place] [address]- 5661 Mar, [facility] [place] [facility] [address] [id number] [place] [address]- 5102 Mar, [facility] [place] [facility] [address] [id number] [place] [address]- 3284 Mar, [facility] [place] [facility] [address] [id number] [place] [address]- 3137 Mar, [facility] [place] [facility] [address] [id number] [place] [address]- 5419 Mar, [facility] [place] [facility] [address] [id number] [place] [address]- 5323 Mar, [facility] [place] [facility] [address] [id number] [place] [address]- 7170 Mar, [facility] [place] [facility] [address] [id number] [place] [address]- 1895 Mar, [facility] [place] [facility] [address] [id number] [place] [address]- 0966 Feb, [facility] [place] [facility] [address] [id number] [place] [address]- 2540 Feb, [facility] [place] [facility] [address] [id number] [place] [address]- 6892 Feb, [facility] [place] [facility] [address] [id number] [place] [address]- 1903 Feb, [facility] [place] [facility] [address] [id number] [place] [address]- 7736 Feb, [facility] [place] [facility] [address] [id number] [place] [address]- 5335 Feb, [facility] [place] [facility] [address] [id number] [place] [address]- 2188 Feb, [facility] [place] [facility] [address] [id number] [place] [address]- 0896 Feb, [facility] [place] [facility] [address] [id number] [place] [address]- 4688 Feb, [facility] [place] [facility] [address] [id number] [place] [address]- 9190 Feb, [facility] [place] [facility] [address] [id number] [place] [address]- 2330 Feb, [facility] [place] [facility] [address] [id number] [place] [address]- 1569 Feb, [facility] [place] [facility] [address] [id number] [place] [address]- 9502 Feb, [facility] [place] [facility] [address] [id number] [place] [address]- 3810 Feb, [facility] [place] [facility] [address] [id number] [place] [address]- 5449 Feb, [facility] [place] [facility] [address] [id number] [place] [address]- 2943 Feb, [facility] [place] [facility] [address] [id number] [place] [address]- 6337 Jan, [facility] [place] [facility] [address] [id number] [place] [address]- 9806 Jan, [facility] [place] [facility] [address] [id number] [place] [address]- 0774 Jan, [facility] [place] [facility] [address] [id number] [place] [address]- 9128 Jan, [facility] [place] [facility] [address] [id number] [place] [address]- 3917 Jan, [facility] [place] [facility] [address] [id number] [place] [address]- 0875 Jan, [facility] [place] [facility] [address] [id number] [place] [address]- 1961 Dec, [facility] [place] [facility] [address] [id number] [place] [address]- 3660 Dec, [facility] [place] [facility] [address] [id number] [place] [address]- 4749 Dec, [facility] [place] [facility] [address] [id number] [place] [address]- 0637 Dec, [facility] [place] [facility] [address] [id number] [place] [address]- 2729 Dec, [facility] [place] [facility] [address] [id number] [place] [address]- 1302 Dec, [facility] [place] [facility] [address] [id number] [place] [address]- 6211 Dec, [facility] [place] [facility] [address] [id number] [place] [address]- 0377 Dec, [facility] [place] [facility] [address] [id number] [place] [address]- 0302 November, [facility] [place] [facility] [address] [id number] [place] [address]- 0182 November, [facility] [place] [facility] [address] [id number] [place] [address]- 2877 November, [facility] [place] [facility] [address] [id number] [place] [address]- 6372 November, [facility] [place] [facility] [address] [id number] [place] [address]- 3862 November, [facility] [place] [facility] [address] [id number] [place] [address]- 3774 November, [facility] [place] [facility] [address] [id number] [place] [address]- 9957 Oct, [facility] [place] [facility] [address] [id number] [place] [address]- 9631 Oct, [facility] [place] [facility] [address] [id number] [place] [address]- 7883 Oct, [facility] [place] [facility] [address] [id number] [place] [address]- 0473 Oct, [facility] [place] [facility] [address] [id number] [place] [address]- 3136 Sep, [facility] [place] [facility] [address] [id number] [place] [address]- 6826 Sep, [facility] [place] [facility] [address] [id number] [place] [address]- 3051 Sep, [facility] [place] [facility] [address] [id number] [place] [address]- 7804 Sep, [facility] [place] [facility] [address] [id number] [place] [address]- 5395 Sep, [facility] [place] [facility] [address] [id number] [place] [address]- 4472 Sep, [facility] [place] [facility] [address] [id number] [place] [address]- 8154 Aug, [facility] [place] [facility] [address] [id number] [place] [address]- 3326 Aug, [facility] [place] [facility] [address] [id number] [place] [address]- 1329 Aug, [facility] [place] [facility] [address] [id number] [place] [address]- 7852 Aug, [facility] [place] [facility] [address] [id number] [place] [address]- 5052 Aug, [facility] [place] [facility] [address] [facility] [id number] [place] [address]- 6393 Aug, [facility] [place] [facility] [address] [id number] [place] [address]- 8069 Jul, [facility] [place] [facility] [address] [id number] [place] [address]- 7279 Jul, [facility] [place] [facility] [address] [id number] [place] [address]- 1725 Jul, [facility] [place] [facility] [address] [id number] [place] [address]- 2355 Jul, [facility] [place] [facility] [address] [id number] [place] [address]- 3502 Jul, [facility] [place] [facility] [address] [id number] [place] [address]- 2806 Jul, [facility] [address] [id number] [place] [address]- 7357 Jul, [facility] [address] [id number] [place] [address]- 4680 Jul, [facility] [address] [id number] [place] [address]- 1129 Jul, [facility] [address] [id number] [place] [address]- 3667 Jul, [facility] [address] [id number] [place] [address]- 8116 Jul, [facility] [address] [id number] [place] [address]- 0548 Jul, [facility] [address] [id number] [place] [address]- 8512 Jul, [facility] [address] [id number] [place] [address]- 3669 Jul, [facility] [place] [address] [id number] [place] [address]- 8143 Jul, [facility] [address] [id number] [place] [address]- 6074 Jun, [facility] [address] [id number] [place] [address]- 1650 Jun, [facility] [place] [facility] [address] [id number] [place] [address]- 1920 Jun, [facility] [place] [facility] [address] [id number] [place] [address]- 3779 Jun, [facility] [place] [facility] [address] [id number] [place] [address]- 1190 May, [facility] [place] [facility] [address] [id number] [address]- 0343 May, [facility] [address] [id number] [id number] May, [facility] [address] [address]- 9139 May, [facility] [address] [address]- 5869 May, [facility] [id number] [address] May, [facility] [address] [address] May, [facility] [id number] [place] [address] May, [facility] [address] [address] May, [facility] [id number] [id number] May, [facility] [address] [address] May, [facility] [id number] [id number] May, [facility] [address] [address] May, [facility] [id number] [id number] May, [facility] [id number] [address] May, IMMUNIZATIONS No Known Immunizations SOCIAL HISTORY Never Assessed REASON FOR VISIT CT PLAN OF CARE VITAL SIGNS MEDICATIONS Unknown [...] [facility] History stress test [...] leukocytosis--[facility] 01/08/16 Hospitalization History pseudomemranous colitis, sepsis--[facility] 04/21/2016 Hospitalization History C Diff--[facility] 05/10/2016 Hospitalization History sepsis, pneumonia, diarrhea--[facility] 06/11/16 Hospitalization History recurrent cdiff, pneumonia-[facility] 07/22/16 Hospitalization History sepsis,pneumonia- [facility]
--- OUTSIDE RECORDS SUMMARY | 2018-03-18 20:11 | XMS REPORT ---
Author Author DAPHNE YUSUF Organization [facility] Address [address] [place] [address] Care Team Providers Care Trauma Counsellor Name Role Phone DAPHNE YUSUF Unavailable PROBLEMS Type Condition ICD9-CM Code SCQ53-UW Code Onset Dates Condition Status SNOMED Code Problem Hx of Clostridium difficile infection Z86.19 Active 323836727 Problem History of arthroplasty of right knee Z96.651 Active 910759706 Problem Dysphagia, unspecified dysphagia R13.10 Active 40937090 Problem Chronic pain syndrome G89.4 Active 898092910 Problem 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 246131096 Problem Anxiety F41.9 Active 20691035 Problem Leg pain, left M79.605 Active 010171521 Problem Depression, unspecified depression type F32.9 Active 60457734 Problem Iron deficiency anemia, unspecified iron deficiency anemia type D50.9 Active 99268963 Problem Anemia, unspecified type D64.9 Active 738666341 Problem Seasonal allergic rhinitis due to pollen J30.1 Active 85948299 Problem Insomnia, unspecified G47.00 Active 933973991 Problem 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 073878299 Problem History of cerebrovascular accident with current residual effects I69.90 Active 251965612 Problem Peripheral vascular disease, unspecified I73.9 Active 772450269 Problem Rheumatoid arthritis, involving unspecified site, unspecified rheumatoid factor presence M06.9 Active 42050183 Problem Other chronic pain G89.29 Active 84996948 Problem Primary insomnia F51.01 Active 4223741 Problem Chronic obstructive pulmon disease w acute lower resp infct J44.0 Active 700710064 Problem Atrial fibrillation I48.91 Active 07568797 Problem Dysthymia F34.1 Active 86340223 Problem Osteoarthritis of foot M19.079 Active 061584828 Problem Rheumatoid arthritis M06.9 Active 48289234 Problem Tobacco abuse, 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 983002230 Problem Edema R60.9 Active 143092940 Problem COPD (chronic obstructive pulmonary disease) J44.9 Active 08551064 Problem Hypertension I10 Active 18960532 ALLERGIES No Information ENCOUNTERS Encounter Location Date Diagnosis [facility] [id number] [place] [address] 78513- 8867 Jan, Chronic pain syndrome G89.4 [facility] [id number] [place] [address] 08605- 2317 Jan, [facility] [id number] [place] [address] 73116- 7615 Dec, Chronic pain syndrome G89.4 [facility] [address] 91558- 3923 November, Chronic pain syndrome G89.4 [facility] [id number] [place] [address] 80575- 8730 November, [facility] [id number] [place] [address] 16109- 9048 Oct, Chronic pain syndrome G89.4 [facility] [id number] [place] [address] 58403- 7102 Oct, [facility] [id number] [place] [address] 58853- 4112 Oct, Chronic pain syndrome G89.4 [facility] [id number] [place] [address] 76598- 4408 Oct, [facility] [id number] [place] [address] 51871- 7913 Oct, [facility] [id number] [place] [address] 54788- 8891 Sep, Left upper quadrant pain R10.12 ; Chronic pain syndrome G89.4 ; Left lower quadrant pain R10.32 ; Other chronic pain G89.29 ; Sacrococcygeal disorders, not elsewhere classified M53.3 and Seasonal allergic rhinitis due to pollen J30.1 [facility] [address] [address] 2807 Sep, Chronic pain syndrome G89.4 [facility] [id number] [place] [address] 65801- 1226 Sep, [facility] [address] [address]- 5376 Aug, Chronic pain syndrome G89.4 [facility] [id number] [place] [address] 89281- 4686 Aug, [facility] [id number] [place] [address] 75565- 0730 Aug, Insomnia, unspecified G47.00 [facility] [id number] [place] [address] 52341- 7779 Jul, [facility] [id number] [place] [address] 25808- 8107 Jul, [facility] [address] [address]- 3197 Jul, Chronic pain syndrome G89.4 [facility] [address] [address]- 2075 Jun, Chronic pain syndrome G89.4 [facility] [address] [address]- 8953 Jun, Chronic pain syndrome G89.4 [facility] [address] [address]- 7327 May, [facility] [address] [address]- 1115 May, Shortness of breath R06.02 ; Peripheral vascular disease, unspecified I73.9 ; Pain in right knee M25.561 ; Other chronic pain G89.29 ; Chest wall pain R07.89 ; Chronic pain syndrome G89.4 ; Primary insomnia F51.01 and Ear pain, left H92.02 [facility] [id number] [place] [address] 91932- 5530 May, Anxiety F41.9 [facility] [address] 54317- 2238 Apr, Pneumonia due to infectious organism, unspecified laterality , unspecified part of lung J18.9 ; Hypoxia R09.02 ; Bradycardia R00.1 ; History of Clostridium difficile Z87.19 and Primary insomnia F51.01 [facility] [address] 26450- 8199 Apr, Anxiety F41.9 [facility] [address] 12129- 5774 Apr, [facility] [address] 80779- 4052 Mar, Anxiety F41.9 [facility] [address] 93604- 4422 Feb, [facility] [address] 04868- 5251 Feb, [facility] [address] 28600- 1105 Feb, Abnormal finding on urinalysis R82.90 [facility] [address] 34353- 1847 Feb, [facility] [address] 91516- 1044 Feb, Shortness of breath R06.02 ; Tachycardia R00.0 ; Cough R05 ; Ill feeling R68.89 and Abnormal finding on urinalysis R82.90 [facility] [address] 90948- 4974 Feb, Anxiety F41.9 [facility] [id number] [place] [address] 86614 -4521 Feb, Sore throat J02.9 and Acute diffuse otitis externa of left ear H60.312 [facility] [address] [place] [address] 14987- 1264 Jan, [facility] [id number] [place] [address] 87320- 1035 Jan, [facility] [id number] [place] [address] [id number] Jan, [facility] [id number] [place] [address] 62844- 2319 Jan, Depression, unspecified depression type F32.9 ; Chronic bronchitis, unspecified chronic bronchitis type J42 ; Chronic pain syndrome G89.4 and Anxiety F41.9 [facility] [id number] [place] [address] 84069- 8646 Jan, [facility] [id number] [place] [address] 44049- 7648 Jan, [facility] [id number] [place] [address] 57470- 3531 Jan, [facility] [id number] [place] [address] [id number] Jan, Chronic pain syndrome G89.4 [facility] [address] [place] [id number] Dec, History of right knee surgery Z98.890 [facility] [address] [place] [address] 62414- 8361 Dec, [facility] [address] [place] [address] 23650- 0678 Dec, Chronic pain syndrome G89.4 [facility] [address] [place] [address] 71226- 4327 November, Anxiety F41.9 [facility] [address] [place] [address] 20494 -8663 November, Acute cystitis without hematuria N30.00 [facility] [id number] [place] [address] 89852 -6083 November, Fever, unspecified fever cause R50.9 and Acute cystitis without hematuria N30.00 [facility] [id number] [place] [address] 96746- 5917 November, Chronic pain syndrome G89.4 [facility] [id number] [place] [address] 79327- 3302 Oct, Anxiety F41.9 [facility] [id number] [place] [address] 16223- 5418 Oct, Chronic pain syndrome G89.4 [facility] [id number] [place] [address] 07701- 7704 Oct, Chronic pain syndrome G89.4 [facility] [id number] [place] [address] 07455- 7296 Oct, [facility] [id number] [place] [address] 63247- 1092 Oct, Chronic pain syndrome G89.4 ; Pain in right knee M25.561 ; History of Clostridium difficile Z87.19 ; Iron deficiency anemia, unspecified iron deficiency anemia type D50.9 ; Peripheral vascular disease, unspecified I73.9 and Atrial fibrillation I48.91 [facility] [id number] [place] [address] 29764- 2735 Oct, [facility] [id number] [place] [address] 80659- 5637 Oct, Chronic pain syndrome G89.4 [facility] [id number] [place] [address] 73665- 4098 Sep, [facility] [id number] [place] [address] 83259- 9535 Sep, Depression, unspecified depression type F32.9 ; Chronic bronchitis, unspecified chronic bronchitis type J42 ; Chronic pain syndrome G89.4 and Anxiety F41.9 [facility] [address] [place] [id number] Sep, History of Clostridium difficile infection Z86.19 and History of stroke Z86.73 [facility] [id number] [place] [address] [id number] Sep, Anxiety F41.9 [facility] [address] [address] 2546 08 Sep, 2016 Chronic pain syndrome G89.4 [facility] [id number] [place] [address] 70678 2546 Sep, [facility] [id number] [place] [address] [id number] Sep, [facility] [id number] [place] [address] 87143- 2626 Aug, Anxiety F41.9 [facility] [address] [place] [address] 08876- 8436 Aug, Anxiety F41.9 [facility] [address] [place] [address] 26349 2542 16 Aug, 2016 [facility] [address] [place] [address] 29135- 1872 14 Aug, 2016 Acute knee pain, unspecified laterality M25.569 [facility] [address] [address]- 1317 13 Aug, 2016 [facility] [address] [address]- 2548 09 Aug, 2016 Chronic pain syndrome G89.4 [facility] [address] [address] 2546 Aug, [facility] [id number] [place] [address] 38898 2546 Aug, [facility] [address] [address] 2546 Jul, [facility] [id number] [place] [address] 93728- 5682 Jul, Anxiety F41.9 [facility] [address] [place] [address] 55394- 8830 Jul, Clostridium difficile diarrhea A04.7 [facility] [address] [place] [id number] Jul, Clostridium difficile diarrhea A04.7 ; Chronic pain syndrome G89.4 ; Chronic obstructive pulmon disease w acute lower resp infct J44.0 and Pain in right knee M25.561 [facility] [id number] [place] [address] [id number] Jul, [facility] [address] [place] [address] 99354 -2267 Jul, Anxiety F41.9 and Chronic pain syndrome G89.4 [facility] [address] [place] [address] 92555- 0260 Jun, Anxiety F41.9 [facility] [address] [place] [address] 40104- 8037 Jun, Rheumatoid arthritis 714.0 [facility] [address] [place] [address] 08694- 8559 Jun, Chronic pain syndrome G89.4 [facility] [address] [place] [address] 51388- 6862 Jun, [facility] [address] [place] [address] 01837- 1497 Jun, [facility] [address] [place] [address] 12582- 0891 Jun, History of pneumonia Z87.01 and History of Clostridium difficile Z87.19 [facility] [address] [place] [address] 48100- 3611 Jun, [facility] [address] [address]- 6632 May, [facility] [id number] [place] [address] 50114- 9213 May, Anxiety F41.9 [facility] [id number] [place] [address] 08725- 0246 May, Chronic pain syndrome G89.4 [facility] [id number] [place] [address] 61792- 2976 May, Chronic bronchitis, unspecified chronic bronchitis type J42 [facility] [id number] [place] [address] 31843- 4646 May, [facility] [id number] [place] [address] 79452- 2591 May, C. difficile diarrhea A04.7 ; Peripheral edema R60.9 ; COPD (chronic obstructive pulmonary disease) J44.9 ; Rheumatoid arthritis, involving unspecified site, unspecified rheumatoid factor presence M06.9 ; Pain in right knee M25.561 ; Pain in left knee M25.562 and Other chronic pain G89.29 [facility] [id number] [place] [address] 67258 2546 May, [facility] [id number] [place] [address] 52236- 7651 May, [facility] [id number] [place] [address] 70965- 0093 May, Anxiety F41.9 [facility] [id number] [place] [address] 72640 2546 Apr, [facility] [id number] [place] [address] 55471 2546 Apr, Chronic pain syndrome G89.4 [facility] [id number] [place] [address] 97561 2546 Apr, Leg pain, left M79.605 [facility] [id number] [place] [address] 68969 2546 Apr, [facility] [address] [address]- 1422 Apr, [facility] [id number] [place] [address] 37212- 5839 Apr, [facility] [id number] [place] [address] 67929- 7211 Mar, Chronic pain syndrome G89.4 [facility] [id number] [place] [address] 20087- 2980 Mar, Acute frontal sinusitis, recurrence not specified J01.10 [facility] [id number] [place] [address] 27068- 0279 20 Mar, 2016 Iron deficiency anemia, unspecified iron deficiency anemia type D50.9 ; Rheumatoid arthritis with positive rheumatoid factor, involving unspecified site M05.9 and Depression, unspecified depression type F32.9 [facility] [id number] [place] [address] 95663- 4652 Mar, Iron deficiency anemia, unspecified iron deficiency anemia type D50.9 ; Depression, unspecified depression type F32.9 and Rheumatoid arthritis with positive rheumatoid factor, involving unspecified site M05.9 [facility] [id number] [place] [address] 10478- 9629 Mar, [facility] [address] [place] [address] 42065- 3114 Mar, [facility] [id number] [place] [address] 00146- 6335 Feb, Chronic pain syndrome G89.4 [facility] [address] [place] [address] 59537- 0611 Feb, 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 ; Status post CVA Z86.73 ; Hemiplegia G81.90 and Anemia, unspecified type D64.9 [facility] [address] [place] [address] 26708- 1691 Feb, [facility] [id number] [place] [address] 92861- 1763 Feb, Anemia, unspecified type D64.9 [facility] [id number] [place] [address] 95003- 8378 Feb, [facility] [id number] [place] [address] 32591- 2644 Feb, Iron deficiency anemia, unspecified iron deficiency anemia type D50.9 [facility] [id number] [place] [address] 18967- 8858 Feb, [facility] [id number] [place] [address] 82968- 1777 Feb, Chronic bronchitis, unspecified chronic bronchitis type J42 [facility] [id number] [place] [address] 56939- 9536 Feb, Iron deficiency anemia, unspecified iron deficiency anemia type D50.9 [facility] [id number] [place] [address] 66575- 8908 Feb, Chronic pain syndrome G89.4 [facility] [id number] [place] [address] 48359- 8684 Feb, Anemia, unspecified type D64.9 and Hypoxia R09.02 [facility] [address] [place] [address] 97627- 0804 Feb, Anemia, unspecified type D64.9 [facility] [address] [place] [address] 77980- 3003 Jan, [facility] [id number] [place] [address] 28995- 5090 Jan, Anemia, unspecified type D64.9 [facility] [address] [place] [address] 47669- 6328 Jan, [facility] [address] [place] [address] 75037- 9149 Jan, Anemia, unspecified type D64.9 [facility] [address] [address]- 1368 Jan, Anemia, unspecified type D64.9 [facility] [id number] [place] [address] 62641- 8816 Jan, [facility] [id number] [place] [address] 27970- 0615 Jan, Anemia, unspecified type D64.9 [facility] [id number] [place] [address] 47786- 4916 Jan, [facility] [id number] [place] [address] 71324- 9262 Jan, [facility] [id number] [place] [address] 39800- 5982 Jan, Chronic pain syndrome G89.4 [facility] [id number] [place] [address] 31116- 4086 Jan, Anemia, unspecified type D64.9 [facility] [id number] [place] [address] 52802- 6621 Jan, Dysthymia F34.1 ; Cervicalgia M54.2 ; Fatigue, unspecified type R53.83 and Depression, unspecified depression type F32.9 [facility] [id number] [place] [address] 21435- 1487 Dec, [facility] [id number] [place] [address] 52110- 0253 Dec, Anxiety F41.9 [facility] [address] [place] [address] 71564- 6899 Dec, Chronic pain syndrome G89.4 [facility] [id number] [place] [address] 63675- 6957 November, [facility] [id number] [place] [address] 79950- 4224 November, Edema R60.9 and Dizziness R42 [facility] [id number] [place] [address] 16976- 0921 November, [facility] [id number] [place] [address] 52318- 7067 November, [facility] [id number] [place] [address] 91833- 4234 November, COPD (chronic obstructive pulmonary disease) J44.9 ; Increased tracheal secretions J39.8 and Edema R60.9 [facility] [id number] [place] [address] 65331 -0459 Oct, [facility] [address] 46215 -6998 Oct, Shortness of breath R06.02 and Edema R60.9 [facility] [id number] [place] [address] 43539- 3974 Oct, Chronic bronchitis, unspecified chronic bronchitis type J42 ; Peripheral vascular disease, unspecified I73.9 ; Rheumatoid arthritis M06.9 and Atrial fibrillation I48.91 [facility] [id number] [place] [address] 51500- 2095 Oct, [facility] [id number] [place] [address] 94303- 2433 Oct, [facility] [id number] [place] [address] 68552- 7689 Oct, [facility] [id number] [place] [address] 51364- 7415 Oct, [facility] [id number] [place] [address] 21903 -9004 Oct, COPD exacerbation J44.1 [facility] [id number] [place] [address] 27242- 9055 Sep, [facility] [id number] [place] [address] 62373- 3567 Sep, [facility] [address] [address]- 3026 Sep, [facility] [id number] [place] [address] 75964- 2975 Aug, [facility] [id number] [place] [address] 90428- 5459 Aug, 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 and PVD (peripheral vascular disease ) I73.9 [facility] [id number] [place] [address] 20868- 0301 Aug, Bronchitis J40 ; COPD (chronic obstructive pulmonary disease ) J44.9 and Dysthymia F34.1 [facility] [id number] [place] [address] 56785- 0963 Aug, [facility] [id number] [place] [address] 20809- 2198 Jul, [facility] [id number] [place] [address] 83043- 6227 Jul, [facility] [id number] [place] [address] [id number]- [id number] Jul, [facility] [id number] [address] Jun, [facility] [id number] [place] [address] 16569- 8656 Jun, [facility] [id number] [address] Jun, Peripheral vascular disease I73.9 [facility] [id number] [place] [address], [place] [address] Jun, [facility] [id number] [address] Jun, [facility] [id number] [place] [address] 92577- 9357 Jun, Leg pain, left M79.605 ; Dysphagia, unspecified dysphagia R13.10 ; Insomnia, unspecified type G47.00 ; PVD (peripheral vascular disease) I73.9 and 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 [facility] [id number] [place] [address] 28428- 2660 May, [facility] [id number] [place] [address] 69030- 3568 May, [facility] [id number] [place] [address] 74806- 9465 May, [facility] [id number] [place] [address] 11579- [phone] May, [facility] [id number] [place] [address] 02209- 7687 May, [facility] [id number] [place] [address] 77435- 8563 Apr, [facility] [id number] [place] [address] 96976- 2333 Apr, [facility] [id number] [place] [address] 82913- 3314 Mar, [facility] [id number] [place] [address] 94572- 2773 Mar, [facility] [id number] [place] [address] 86946- 0425 Feb, [facility] [id number] [place] [address] 64896- 1037 Feb, Nicotine abuse 305.1 ; Arthralgia 719.40 and 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 [facility] [id number] [place] [address] 972007- 5366 Feb, [facility] [id number] [place] [address] [id number]- 1166 Jan, [facility] [address] [address] 0927 16 Jan, 2014 [facility] [address] [address] 5760 Jan, [facility] [address] [address]- 7285 Jan, [facility] [id number] [place] [address] 65436- 7646 Jan, 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 ; Rheumatoid arthritis 714.0 ; Hypertension 401.9 ; GERD (gastroesophageal reflux disease) 530.81 ; Nicotine addiction 305.1 and Leukocytosis 288.60 [facility] [address] [address] 6343 Jan, 2014 [facility] [address] [address]- 7463 Jan, [facility] [address] [address]- 6359 Jan, [facility] [address] [address]- 7281 Jan, [facility] [address] [address]- 8039 Jan, [facility] [address] [address]- 6513 Dec, [facility] [address] [address]- 4237 Dec, [facility] [address] [address]- 4355 Dec, [facility] [address] [address]- 3126 Dec, [facility] [id number] [address] 4925 November, [facility] [id number] [place] [address] [id number]- 3937 November, [facility] [id number] [place] [address] [id number]- 5333 November, Shortness of breath 786.05 [facility] [id number] [place] [address] 05326- 3081 November, Rheumatoid arthritis 714.0 [facility] [id number] [place] [address] 38843- 1898 November, 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 [facility] [id number] [place] [address] 893839- 1647 November, Neuropathy 355.9 ; Insomnia 780.52 ; Dysthymia 300.4 ; Shortness of breath 786.05 ; Rheumatoid arthritis 714.0 and Nausea 787.02 [facility] [id number] [place] [address] 36728- 7508 November, [facility] [id number] [place] [address] 28635- 2025 November, [facility] [id number] [place] [address] 05421- 0082 Oct, [facility] [id number] [place] [address] 86229- 2671 Oct, [facility] [id number] [address]- 6216 Oct, [facility] [id number] [place] [address] 71169- 7337 Oct, [facility] [id number] [place] [address] 76627- 8254 Sep, [facility] [id number] [place] [address] 28001- 9284 Sep, [facility] [id number] [address]- 0895 Sep, [facility] [address] [address] [place] [address]- 4513 Sep, [facility] [place] [facility] [address] [id number] [place] [address]- 2331 Sep, [facility] [place] [facility] [address] [id number] [place] [address]- 7149 Sep, [facility] [place] [facility] [address] [id number] [place] [address]- 0357 Sep, [facility] [place] [facility] [address] [id number] [place] [address]- 9503 Sep, [facility] [place] [facility] [address] [id number] [place] [address]- 7672 Aug, [facility] [place] [facility] [address] [id number] [place] [address]- 0004 Aug, [facility] [place] [facility] [address] [id number] [place] [address]- 5757 Aug, [facility] [place] [facility] [address] [id number] [place] [address]- 4791 Aug, [facility] [place] [facility] [address] [id number] [place] [address]- 5053 Aug, [facility] [place] [facility] [address] [facility] [id number] [place] [address]- 6912 Aug, [facility] [place] [facility] [address] [id number] [place] [address]- 0564 Jul, [facility] [place] [facility] [address] [id number] [place] [address]- 3377 Jul, [facility] [place] [facility] [address] [id number] [place] [address]- 6477 Jul, [facility] [place] [facility] [address] [id number] [place] [address]- 7926 Jul, [facility] [place] [facility] [address] [facility] [id number] [place] [address]- 7135 Jul, [facility] [place] [facility] [address] [id number] [place] [address]- 0259 Jul, [facility] [place] [facility] [address] [id number] [place] [address]- 0860 Jul, [facility] [place] [facility] [address] [id number] [place] [address]- 5600 Jul, [facility] [place] [facility] [address] [id number] [place] [address]- 6890 Jul, [facility] [place] [facility] [address] [id number] [place] [address]- 7118 Jul, [facility] [place] [facility] [address] [id number] [place] [address]- 3854 Jun, [facility] [place] [facility] [address] [id number] [place] [address]- 1050 Jun, [facility] [place] [facility] [address] [id number] [place] [address]- 0088 Jun, [facility] [place] [facility] [address] [id number] [place] [address]- 7194 Jun, [facility] [place] [facility] [address] [id number] [place] [address]- 5136 Jun, [facility] [place] [facility] [address] [id number] [place] [address]- 1865 Jun, [facility] [place] [facility] [address] [id number] [place] [address]- 0059 Jun, [facility] [place] [facility] [address] [id number] [place] [address]- 0968 Jun, [facility] [place] [facility] [address] [id number] [place] [address]- 0864 Jun, [facility] [place] [facility] [address] [id number] [place] [address]- 1553 Jun, [facility] [place] [facility] [address] [id number] [place] [address]- 0654 08 Jun, 2014 [facility] [place] [facility] [address] [id number] [place] [address]- 0868 08 Jun, 2014 [facility] [place] [facility] [address] [id number] [place] 2581 Jun, [facility] [place] [facility] [address] [id number] [place] [address]- 0381 Jun, [facility] [place] [facility] [address] [id number] [place] [address]- 0582 Jun, [facility] [place] [facility] [address] [id number] [place] [address]- 9469 Jun, [facility] [place] [facility] [address] [id number] [place] [address]- 0486 May, [facility] [place] [facility] [address] [id number] [place] [address]- 1459 May, [facility] [place] [facility] [address] [id number] [place] [address]- 9392 May, [facility] [place] [facility] [address] [id number] [place] [address]- 8534 May, [facility] [place] [facility] [address] [facility] [id number] [place] [address]- 2513 May, [facility] [place] [facility] [address] [id number] [place] [address]- 2386 May, [facility] [place] [facility] [address] [id number] [place] [address]- 0499 May, [facility] [place] [facility] [address] [id number] [place] [address]- 1486 May, [facility] [place] [facility] [address] [id number] [place] [address]- 9513 May, [facility] [place] [facility] [address] [id number] [place] [address]- 7043 Apr, [facility] [place] [facility] [address] [id number] [place] [address]- 2935 Apr, [facility] [place] [facility] [address] [id number] [place] [address]- 0120 Apr, [facility] [place] [facility] [address] [id number] [place] [address]- 0422 Apr, [facility] [place] [facility] [address] [id number] [place] [address]- 5565 Apr, [facility] [place] [facility] [address] [id number] [place] [address]- 1475 Apr, [facility] [place] [facility] [address] [id number] [place] [address]- 1482 Apr, [facility] [place] [facility] [address] [id number] [place] [address]- 1397 Apr, [facility] [place] [facility] [address] [id number] [place] [address]- 8299 Apr, [facility] [place] [facility] [address] [id number] [place] [address]- 7471 Apr, [facility] [place] [facility] [address] [id number] [place] [address]- 4346 Apr, [facility] [place] [facility] [address] [id number] [place] [address]- 9063 Apr, [facility] [place] [facility] [address] [id number] [place] [address]- 2016 Mar, [facility] [place] [facility] [address] [id number] [place] [address]- 0582 Mar, [facility] [place] [facility] [address] [id number] [place] [address]- 1312 Mar, [facility] [place] [facility] [address] [id number] [place] [address]- 0365 Mar, [facility] [place] [facility] [address] [id number] [place] [address]- 5374 Mar, [facility] [place] [facility] [address] [id number] [place] [address]- 1150 Mar, [facility] [place] [facility] [address] [id number] [place] [address]- 5860 Mar, [facility] [place] [facility] [address] [id number] [place] [address]- 2757 Mar, [facility] [place] [facility] [address] [id number] [place] [address]- 4643 Mar, [facility] [place] [facility] [address] [id number] [place] [address]- 3682 Mar, [facility] [place] [facility] [address] [id number] [place] [address]- 2773 Feb, [facility] [place] [facility] [address] [id number] [place] [address]- 7889 Feb, [facility] [place] [facility] [address] [id number] [place] [address]- 7164 Feb, [facility] [place] [facility] [address] [id number] [place] [address]- 0229 Feb, [facility] [place] [facility] [address] [id number] [place] [address]- 3391 Feb, [facility] [place] [facility] [address] [id number] [place] [address]- 2618 Feb, [facility] [place] [facility] [address] [id number] [place] [address]- 6337 Feb, [facility] [place] [facility] [address] [id number] [place] [address]- 6590 Feb, [facility] [place] [facility] [address] [id number] [place] [address]- 7671 Feb, [facility] [place] [facility] [address] [id number] [place] [address]- 1848 Feb, [facility] [place] [facility] [address] [id number] [place] [address]- 9086 Feb, [facility] [place] [facility] [address] [id number] [place] [address]- 7943 Feb, [facility] [place] [facility] [address] [id number] [place] [address]- 8752 Feb, [facility] [place] [facility] [address] [id number] [place] [address]- 6489 Feb, [facility] [place] [facility] [address] [id number] [place] [address]- 4983 Feb, [facility] [place] [facility] [address] [id number] [place] [address]- 0840 Feb, [facility] [place] [facility] [address] [id number] [place] [address]- 3628 Jan, [facility] [place] [facility] [address] [id number] [place] [address]- 4781 Jan, [facility] [place] [facility] [address] [id number] [place] [address]- 4151 Jan, [facility] [place] [facility] [address] [id number] [place] [address]- 2772 Jan, [facility] [place] [facility] [address] [id number] [place] [address]- 6692 Jan, [facility] [place] [facility] [address] [id number] [place] [address]- 6622 Jan, [facility] [place] [facility] [address] [id number] [place] [address]- 0121 Dec, [facility] [place] [facility] [address] [id number] [place] [address]- 5038 Dec, [facility] [place] [facility] [address] [id number] [place] [address]- 4554 Dec, [facility] [place] [facility] [address] [id number] [place] [address]- 7239 Dec, [facility] [place] [facility] [address] [id number] [place] [address]- 6054 Dec, [facility] [place] [facility] [address] [id number] [place] [address]- 9016 Dec, [facility] [place] [facility] [address] [id number] [place] [address]- 3250 Dec, [facility] [place] [facility] [address] [id number] [place] [address]- 6697 Dec, [facility] [place] [facility] [address] [id number] [place] [address]- 1869 November, [facility] [place] [facility] [address] [id number] [place] [address]- 9343 November, [facility] [place] [facility] [address] [id number] [place] [address]- 2905 November, [facility] [place] [facility] [address] [id number] [place] [address]- 0016 November, [facility] [place] [facility] [address] [id number] [place] [address]- 2488 November, [facility] [place] [facility] [address] [id number] [place] [address]- 3899 November, [facility] [place] [facility] [address] [id number] [place] [address]- 9658 Oct, [facility] [place] [facility] [address] [id number] [place] [address]- 2505 Oct, [facility] [place] [facility] [address] [id number] [place] [address]- 4884 Oct, [facility] [place] [facility] [address] [id number] [place] [address]- 7911 Oct, [facility] [place] [facility] [address] [id number] [place] [address]- 0169 Sep, [facility] [place] [facility] [address] [id number] [place] [address]- 6918 Sep, [facility] [place] [facility] [address] [id number] [place] [address]- 4145 Sep, [facility] [place] [facility] [address] [id number] [place] [address]- 1109 Sep, [facility] [place] [facility] [address] [id number] [place] [address]- 2858 Sep, [facility] [place] [facility] [address] [id number] [place] [address]- 0165 Sep, [facility] [place] [facility] [address] [id number] [place] [address]- 0476 Aug, [facility] [place] [facility] [address] [id number] [place] [address]- 6385 Aug, [facility] [place] [facility] [address] [id number] [place] [address]- 8941 Aug, [facility] [place] [facility] [address] [id number] [place] [address]- 8880 Aug, [facility] [place] [facility] [address] [id number] [place] [address]- 2496 Aug, [facility] [place] [facility] [address] [facility] [id number] [place] [address]- 2680 Aug, [facility] [place] [facility] [address] [id number] [place] [address]- 7087 Jul, [facility] [place] [facility] [address] [id number] [place] [address]- 3597 Jul, [facility] [place] [facility] [address] [id number] [place] [address]- 9485 Jul, [facility] [place] [facility] [address] [id number] [place] [address]- 0448 Jul, [facility] [place] [facility] [address] [id number] [place] [address]- 0751 Jul, [facility] [place] [facility] [address] [id number] [place] [address]- 3158 Jul, [facility] [address] [id number] [place] [address]- 2720 Jul, [facility] [address] [id number] [place] [address]- 6865 Jul, [facility] [address] [id number] [place] [address]- 1303 Jul, [facility] [address] [id number] [place] [address]- 8705 Jul, [facility] [address] [id number] [place] [address]- 0282 Jul, [facility] [address] [id number] [place] [address]- 0698 Jul, [facility] [address] [id number] [place] [address]- 7452 Jul, [facility] [address] [id number] [place] [address]- 6459 Jul, [facility] [facility] [address] [id number] [place] [address]- 5411 Jul, [facility] [address] [id number] [place] [address]- 9626 Jun, [facility] [address] [id number] [place] [address]- 5571 Jun, [facility] [place] [facility] [address] [id number] [place] [address]- 8252 Jun, [facility] [place] [facility] [address] [id number] [place] [address]- 4870 Jun, [facility] [place] [facility] [address] [id number] [place] [address]- 9500 May, [facility] [place] [facility] [address] [id number] [address]- 0629 May, [facility] [address] [id number] [id number] May, [facility] [address] [address]- 4175 May, [facility] [address] [address]- 5430 May, [facility] [id number] [place] [address] 94509- 2665 May, [facility] [address] [address]- 0642 May, [facility] [id number] [place] [address] 185[address]- 3289 May, [facility] [address] [address]- 7996 May, [facility] [id number] [id number] May, [facility] [address] [address]- 5493 May, [facility] [address] [id number] May, [facility] [address] [address]- 6114 May, [facility] [address] [id number] May, [facility] [address] [address]- 7078 May, IMMUNIZATIONS No Known Immunizations SOCIAL HISTORY Never Assessed REASON FOR VISIT Lab (walk-in) PLAN OF CARE VITAL SIGNS MEDICATIONS Unknown Medications RESULTS No Results PROCEDURES Procedure Date Ordered Result Body Site DRUG TEST PRSMV CHEM ANLYZR October 14, 2017 DRUG SCREEN AMPHETAMINES 07/14October 14, 2017 INSTRUCTIONS MEDICATIONS ADMINISTERED No Known Medications MEDICAL [...] leukocytosis--tank davis 01/08/16 Hospitalization History pseudomemranous colitis, sepsis--[facility] 04/21/2016 Hospitalization History C Diff--[facility] 05/10/2016 Hospitalization History sepsis, pneumonia, diarrhea--[facility] 06/11/16 Hospitalization History recurrent cdiff, pneumonia-[facility] 07/22/16 Hospitalization History sepsis,pneumonia- [facility]
--- OUTSIDE RECORDS SUMMARY | 2018-03-18 20:12 | XMS REPORT ---
Author Author DAPHNE YUSUF Organization [facility] Address [address] [place] [address] Care Team Providers [employer] Technician Name Role Phone DAPHNE YUSUF Unavailable PROBLEMS Type Condition ICD9-CM Code VWA60-HK Code Onset Dates Condition Status SNOMED Code Problem Hx of Clostridium difficile infection Z86.19 Active 662933204 Problem History of arthroplasty of right knee Z96.651 Active 686813205 Problem Dysphagia, unspecified dysphagia R13.10 Active 50929945 Problem Chronic pain syndrome G89.4 Active 163343821 Problem 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 343639227 Problem Anxiety F41.9 Active 09179207 Problem Leg pain, left M79.605 Active 384601008 Problem Depression, unspecified depression type F32.9 Active 06515879 Problem Iron deficiency anemia, unspecified iron deficiency anemia type D50.9 Active 16567949 Problem Anemia, unspecified type D64.9 Active 194936576 Problem Seasonal allergic rhinitis due to pollen J30.1 Active 27113689 Problem Insomnia, unspecified G47.00 Active 592137053 Problem 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 680214463 Problem History of cerebrovascular accident with current residual effects I69.90 Active 046292376 Problem Peripheral vascular disease, unspecified I73.9 Active 931498997 Problem Rheumatoid arthritis, involving unspecified site, unspecified rheumatoid factor presence M06.9 Active 06922855 Problem Other chronic pain G89.29 Active 59468607 Problem Primary insomnia F51.01 Active 3881596 Problem Chronic obstructive pulmon disease w acute lower resp infct J44.0 Active 858675670 Problem Atrial fibrillation I48.91 Active 46494508 Problem Dysthymia F34.1 Active 73046861 Problem Osteoarthritis of foot M19.079 Active 401196999 Problem Rheumatoid arthritis M06.9 Active 58605184 Problem Tobacco abuse, 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 503052695 Problem Edema R60.9 Active 670738115 Problem COPD (chronic obstructive pulmonary disease) J44.9 Active 37736240 Problem Hypertension I10 Active 40448507 ALLERGIES No Information ENCOUNTERS Encounter Location Date Diagnosis [facility] [id number] [place] [address] 08093- 4562 Jan, Chronic pain syndrome G89.4 [facility] [id number] [place] [address] 77687- 2527 Jan, [facility] [id number] [place] [address] 73730- 6282 Dec, Chronic pain syndrome G89.4 [facility] [address] 48567- 8260 November, Chronic pain syndrome G89.4 [facility] [id number] [place] [address] 00307- 1559 November, [facility] [id number] [place] [address] 81445- 5097 Oct, Chronic pain syndrome G89.4 [facility] [id number] [place] [address] 34703- 7371 Oct, [facility] [id number] [place] [address] 23999- 4943 Oct, Chronic pain syndrome G89.4 [facility] [id number] [place] [address] 78404- 5143 Oct, [facility] [id number] [place] [address] 21349- 0113 Oct, [facility] [id number] [place] [address] 67778- 7941 Sep, Left upper quadrant pain R10.12 ; Chronic pain syndrome G89.4 ; Left lower quadrant pain R10.32 ; Other chronic pain G89.29 ; Sacrococcygeal disorders, not elsewhere classified M53.3 and Seasonal allergic rhinitis due to pollen J30.1 [facility] [address] [address] 6980 Sep, Chronic pain syndrome G89.4 [facility] [address] [place] [address] 09108- 5916 Sep, [facility] [address] [address] 9266 Aug, Chronic pain syndrome G89.4 [facility] [id number] [place] [address] 92470- 8116 Aug, [facility] [address] [place] [address] 36814- 7463 Aug, Insomnia, unspecified G47.00 [facility] [address] [place] [address] 17399- 4253 Jul, [facility] [address] [place] [address] 19383- 1137 Jul, [facility] [address] [address]- 5876 Jul, Chronic pain syndrome G89.4 [facility] [address] [address] 1988 Jun, Chronic pain syndrome G89.4 [facility] [address] [address]- 4732 Jun, Chronic pain syndrome G89.4 [facility] [address] [address]- 8071 May, [facility] [address] [address]- 0787 May, Shortness of breath R06.02 ; Peripheral vascular disease, unspecified I73.9 ; Pain in right knee M25.561 ; Other chronic pain G89.29 ; Chest wall pain R07.89 ; Chronic pain syndrome G89.4 ; Primary insomnia F51.01 and Ear pain, left H92.02 [facility] [id number] [place] [address] 74005- 3364 May, Anxiety F41.9 [facility] [address] 01969- 4312 Apr, Pneumonia due to infectious organism, unspecified laterality , unspecified part of lung J18.9 ; Hypoxia R09.02 ; Bradycardia R00.1 ; History of Clostridium difficile Z87.19 and Primary insomnia F51.01 [facility] [address] 04951- 6560 Apr, Anxiety F41.9 [facility] [address] 43383- 6153 Apr, [facility] [address] 78140- 8241 Mar, Anxiety F41.9 [facility] [address] 20525- 2820 Feb, [facility] [address] 58289- 9274 Feb, [facility] [address] 01238- 2816 Feb, Abnormal finding on urinalysis R82.90 [facility] [address] 63809- 5291 Feb, [facility] [address] 47187- 7445 Feb, Shortness of breath R06.02 ; Tachycardia R00.0 ; Cough R05 ; Ill feeling R68.89 and Abnormal finding on urinalysis R82.90 [facility] [address] 49759- 0901 Feb, Anxiety F41.9 [facility] [id number] [place] [address] 65331 -9047 Feb, Sore throat J02.9 and Acute diffuse otitis externa of left ear H60.312 [facility] [address] [place] [address] 06197- 6174 Jan, [facility] [id number] [place] [address] 63754- 2042 Jan, [facility] [id number] [place] [address] [id number] Jan, [facility] [id number] [place] [address] 21657- 3600 Jan, Depression, unspecified depression type F32.9 ; Chronic bronchitis, unspecified chronic bronchitis type J42 ; Chronic pain syndrome G89.4 and Anxiety F41.9 [facility] [id number] [place] [address] 87700- 2082 Jan, [facility] [id number] [place] [address] 90452- 4291 Jan, [facility] [id number] [place] [address] 20526- 2649 Jan, [facility] [id number] [place] [address] [phone] Jan, Chronic pain syndrome G89.4 [facility] [address] [place] [id number] Dec, History of right knee surgery Z98.890 [facility] [address] [place] [address] 32764- 3044 Dec, [facility] [address] [place] [address] 87813- 1848 Dec, Chronic pain syndrome G89.4 [facility] [address] [place] [address] 02753- 9049 November, Anxiety F41.9 [facility] [address] [place] [address] 90402 -5537 November, Acute cystitis without hematuria N30.00 [facility] [id number] [place] [address] 50979 -7593 November, Fever, unspecified fever cause R50.9 and Acute cystitis without hematuria N30.00 [facility] [id number] [place] [address] 76813- 1231 November, Chronic pain syndrome G89.4 [facility] [id number] [place] [address] 81875- 9347 Oct, Anxiety F41.9 [facility] [id number] [place] [address] 03934- 9089 Oct, Chronic pain syndrome G89.4 [facility] [id number] [place] [address] 85689- 1726 Oct, Chronic pain syndrome G89.4 [facility] [id number] [place] [address] 41591- 1585 Oct, [facility] [id number] [place] [address] 07966- 8483 Oct, Chronic pain syndrome G89.4 ; Pain in right knee M25.561 ; History of Clostridium difficile Z87.19 ; Iron deficiency anemia, unspecified iron deficiency anemia type D50.9 ; Peripheral vascular disease, unspecified I73.9 and Atrial fibrillation I48.91 [facility] [id number] [place] [address] 30686- 0862 Oct, [facility] [id number] [place] [address] 13003- 7966 Oct, Chronic pain syndrome G89.4 [facility] [address] [place] [address] 98009- 1181 Sep, [facility] [id number] [place] [address] 90135- 1916 Sep, Depression, unspecified depression type F32.9 ; Chronic bronchitis, unspecified chronic bronchitis type J42 ; Chronic pain syndrome G89.4 and Anxiety F41.9 [facility] [address] [place] [id number] Sep, History of Clostridium difficile infection Z86.19 and History of stroke Z86.73 [facility] [id number] [place] [address] [id number] Sep, Anxiety F41.9 [facility] [address] [address] 2546 08 Sep, 2016 Chronic pain syndrome G89.4 [facility] [address] [place] [address] 05673 2546 Sep, [facility] [id number] [place] [address] [id number] Sep, [facility] [id number] [place] [address] 38077- 8546 Aug, Anxiety F41.9 [facility] [address] [place] [address] 44469- 0776 Aug, Anxiety F41.9 [facility] [address] [place] [address] 87052 254 16 Aug, 2016 [facility] [address] [place] [address] 43874- 6662 14 Aug, 2016 Acute knee pain, unspecified laterality M25.569 [facility] [address] [address]- 8764 13 Aug, 2016 [facility] [address] [address]- 2540 09 Aug, 2016 Chronic pain syndrome G89.4 [facility] [address] [address] 2546 Aug, [facility] [id number] [place] [address] 49505 2546 Aug, [facility] [address] [address] 2546 Jul, [facility] [id number] [place] [address] 86504- 1219 Jul, Anxiety F41.9 [facility] [address] [place] [address] 25463- 3626 Jul, Clostridium difficile diarrhea A04.7 [facility] [address] [place] [id number] Jul, Clostridium difficile diarrhea A04.7 ; Chronic pain syndrome G89.4 ; Chronic obstructive pulmon disease w acute lower resp infct J44.0 and Pain in right knee M25.561 [facility] [id number] [place] [address] [id number] Jul, [facility] [address] [place] [address] 94583 -1481 Jul, Anxiety F41.9 and Chronic pain syndrome G89.4 [facility] [address] [place] [address] 38877- 1340 Jun, Anxiety F41.9 [facility] [address] [place] [address] 44891- 5018 Jun, Rheumatoid arthritis 714.0 [facility] [address] [place] [address] 05041- 4199 Jun, Chronic pain syndrome G89.4 [facility] [address] [place] [address] 47530- 8260 Jun, [facility] [address] [place] [address] 09814- 3461 Jun, [facility] [address] [place] [address] 29583- 2387 Jun, History of pneumonia Z87.01 and History of Clostridium difficile Z87.19 [facility] [address] [place] [address] 34796- 1726 Jun, [facility] [address] [address]- 8863 May, [facility] [id number] [place] [address] 34301- 7470 May, Anxiety F41.9 [facility] [id number] [place] [address] 37022- 5616 May, Chronic pain syndrome G89.4 [facility] [id number] [place] [address] 79168- 1516 May, Chronic bronchitis, unspecified chronic bronchitis type J42 [facility] [id number] [place] [address] 41584- 2936 May, [facility] [id number] [place] [address] 21448- 1284 May, C. difficile diarrhea A04.7 ; Peripheral edema R60.9 ; COPD (chronic obstructive pulmonary disease) J44.9 ; Rheumatoid arthritis, involving unspecified site, unspecified rheumatoid factor presence M06.9 ; Pain in right knee M25.561 ; Pain in left knee M25.562 and Other chronic pain G89.29 [facility] [id number] [place] [address] 18898 2546 May, [facility] [id number] [place] [address] 09851- 6821 May, [facility] [id number] [place] [address] 85692- 8598 May, Anxiety F41.9 [facility] [id number] [place] [address] 83247 2546 Apr, [facility] [id number] [place] [address] 00080 2546 Apr, Chronic pain syndrome G89.4 [facility] [id number] [place] [address] 37997 2546 Apr, Leg pain, left M79.605 [facility] [id number] [place] [address] 38311 2546 Apr, [facility] [id number] [address]- 6139 Apr, [facility] [id number] [place] [address] 76797- 2719 Apr, [facility] [id number] [place] [address] 81938- 5783 Mar, Chronic pain syndrome G89.4 [facility] [id number] [place] [address] 64543- 0092 Mar, Acute frontal sinusitis, recurrence not specified J01.10 [facility] [id number] [place] [address] 05887- 1960 20 Mar, 2016 Iron deficiency anemia, unspecified iron deficiency anemia type D50.9 ; Rheumatoid arthritis with positive rheumatoid factor, involving unspecified site M05.9 and Depression, unspecified depression type F32.9 [facility] [id number] [place] [address] 94331- 6055 Mar, Iron deficiency anemia, unspecified iron deficiency anemia type D50.9 ; Depression, unspecified depression type F32.9 and Rheumatoid arthritis with positive rheumatoid factor, involving unspecified site M05.9 [facility] [id number] [place] [address] 12597- 3599 Mar, [facility] [address] [place] [address] 41794- 0762 Mar, [facility] [id number] [place] [address] 97113- 5468 Feb, Chronic pain syndrome G89.4 [facility] [address] [place] [address] 37809- 0089 Feb, 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 ; Status post CVA Z86.73 ; Hemiplegia G81.90 and Anemia, unspecified type D64.9 [facility] [address] [place] [address] 65768- 5429 Feb, [facility] [id number] [place] [address] 17433- 5737 Feb, Anemia, unspecified type D64.9 [facility] [id number] [place] [address] 53731- 1750 Feb, [facility] [id number] [place] [address] 33905- 8342 Feb, Iron deficiency anemia, unspecified iron deficiency anemia type D50.9 [facility] [id number] [place] [address] 45949- 7864 Feb, [facility] [id number] [place] [address] 48587- 5011 Feb, Chronic bronchitis, unspecified chronic bronchitis type J42 [facility] [id number] [place] [address] 80586- 5604 Feb, Iron deficiency anemia, unspecified iron deficiency anemia type D50.9 [facility] [id number] [place] [address] 80930- 2599 Feb, Chronic pain syndrome G89.4 [facility] [id number] [place] [address] 36355- 4574 Feb, Anemia, unspecified type D64.9 and Hypoxia R09.02 [facility] [address] [place] [address] 45688- 0064 Feb, Anemia, unspecified type D64.9 [facility] [address] [place] [address] 93802- 3910 Jan, [facility] [id number] [place] [address] 59158- 3410 Jan, Anemia, unspecified type D64.9 [facility] [address] [place] [address] 85333- 5976 Jan, [facility] [address] [place] [address] 47121- 0797 Jan, Anemia, unspecified type D64.9 [facility] [address] [address]- 4854 Jan, Anemia, unspecified type D64.9 [facility] [id number] [place] [address] 92468- 9922 Jan, [facility] [id number] [place] [address] 01414- 2325 Jan, Anemia, unspecified type D64.9 [facility] [id number] [place] [address] 32254- 4506 Jan, [facility] [id number] [place] [address] 17780- 8083 Jan, [facility] [id number] [place] [address] 18618- 0208 Jan, Chronic pain syndrome G89.4 [facility] [id number] [place] [address] 88549- 6989 Jan, Anemia, unspecified type D64.9 [facility] [id number] [place] [address] 68222- 3384 Jan, Dysthymia F34.1 ; Cervicalgia M54.2 ; Fatigue, unspecified type R53.83 and Depression, unspecified depression type F32.9 [facility] [id number] [place] [address] 50246- 6851 Dec, [facility] [id number] [place] [address] 72086- 4833 Dec, Anxiety F41.9 [facility] [address] [place] [address] 20918- 8209 Dec, Chronic pain syndrome G89.4 [facility] [id number] [place] [address] 57265- 3659 November, [facility] [id number] [place] [address] 79565- 0256 November, Edema R60.9 and Dizziness R42 [facility] [id number] [place] [address] 69377- 9214 November, [facility] [id number] [place] [address] 10167- 9415 November, [facility] [id number] [place] [address] 59685- 3637 November, COPD (chronic obstructive pulmonary disease) J44.9 ; Increased tracheal secretions J39.8 and Edema R60.9 [facility] [id number] [place] [address] 81683 -7380 Oct, [facility] [address] 08443 -4562 Oct, Shortness of breath R06.02 and Edema R60.9 [facility] [id number] [place] [address] 91062- 6241 Oct, Chronic bronchitis, unspecified chronic bronchitis type J42 ; Peripheral vascular disease, unspecified I73.9 ; Rheumatoid arthritis M06.9 and Atrial fibrillation I48.91 [facility] [id number] [place] [address] 28832- 4459 Oct, [facility] [id number] [place] [address] 60274- 6273 Oct, [facility] [id number] [place] [address] 39315- 7021 Oct, [facility] [id number] [place] [address] 34976- 7880 Oct, [facility] [id number] [place] [address] 97717 -4624 Oct, COPD exacerbation J44.1 [facility] [id number] [place] [address] 89666- 6659 Sep, [facility] [id number] [place] [address] 28665- 0526 Sep, [facility] [address] [address]- 6871 Sep, [facility] [id number] [place] [address] 39290- 7665 Aug, [facility] [id number] [place] [address] 39800- 9959 Aug, 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 and PVD (peripheral vascular disease ) I73.9 [facility] [id number] [place] [address] 62071- 2245 Aug, Bronchitis J40 ; COPD (chronic obstructive pulmonary disease ) J44.9 and Dysthymia F34.1 [facility] [id number] [place] [address] 66405- 2068 Aug, [facility] [id number] [place] [address] 55439- 9600 Jul, [facility] [id number] [place] [address] 53325- 7231 Jul, [facility] [id number] [place] [address] 91273- 2311 Jul, [facility] [address] [id number] Jun, [facility] [id number] [place] [id number]- [id number] Jun, [facility] [id number] [address] Jun, Peripheral vascular disease I73.9 [facility] [id number] [place] [address], [place] [id number] Jun, [facility] [id number] [place] [address] Jun, [facility] [id number] [place] [address] 36097- 8619 Jun, Leg pain, left M79.605 ; Dysphagia, unspecified dysphagia R13.10 ; Insomnia, unspecified type G47.00 ; PVD (peripheral vascular disease) I73.9 and 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 [facility] [id number] [place] [address] 74899- 2443 May, [facility] [id number] [place] [address] 02820- 0796 May, [facility] [id number] [place] [address] 36905- 5949 May, [facility] [id number] [place] [address] 22364- 9372 May, [facility] [id number] [place] [address] 56940- 1655 May, [facility] [id number] [place] [address] 44557- 2061 Apr, [facility] [id number] [place] [address] 11038- 4697 Apr, [facility] [id number] [place] [address] 67809- 0427 Mar, [facility] [id number] [place] [address] 36880- 1197 Mar, [facility] [id number] [place] [address] 24384- 1808 Feb, [facility] [id number] [place] [address] 27278- 6343 Feb, Nicotine abuse 305.1 ; Arthralgia 719.40 and 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 [facility] [id number] [place] [address] [id number]- 2446 Feb, [facility] [id number] [place] [address] [id number]- 3006 Jan, [facility] [address] [place] [address] 6[address] 16 Jan, 2014 [facility] [address] [place] [address] 3709 Jan, [facility] [address] [place] [address] 8437 Jan, [facility] [id number] [place] [address] 60075- 0472 Jan, 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 ; Rheumatoid arthritis 714.0 ; Hypertension 401.9 ; GERD (gastroesophageal reflux disease) 530.81 ; Nicotine addiction 305.1 and Leukocytosis 288.60 [facility] [address] [place] [address] 7368 Jan, 2014 [facility] [address] [place] [address] 3402 Jan, [facility] [address] [address] 9662 Jan, [facility] [address] [place] [address] 7288 Jan, [facility] [address] [place] [address] 1431 Jan, [facility] [address] [place] [address] 7142 Dec, [facility] [address] [place] [address] 0919 Dec, [facility] [address] [place] [address]- 9065 Dec, [facility] [address] [place] [address] 6137 Dec, [facility] [id number] [place] [address] 7485 November, [facility] [id number] [place] [address] [id number]- 4642 November, [facility] [id number] [place] [address] 460986- 3576 November, Shortness of breath 786.05 [facility] [id number] [place] [address] 69781- 3431 November, Rheumatoid arthritis 714.0 [facility] [id number] [place] [address] 70875- 9509 November, 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 [facility] [id number] [place] [address] [id number]- 1313 November, Neuropathy 355.9 ; Insomnia 780.52 ; Dysthymia 300.4 ; Shortness of breath 786.05 ; Rheumatoid arthritis 714.0 and Nausea 787.02 [facility] [id number] [place] [address] 81831- 3708 November, [facility] [id number] [place] [address] 14779- 0925 November, [facility] [id number] [place] [address] 15643- 4654 Oct, [facility] [id number] [place] [address] 98417- 3858 Oct, [facility] [id number] [address]- 1035 Oct, [facility] [id number] [place] [address] 19330- 3926 Oct, [facility] [id number] [place] [address] 15127- 7907 Sep, [facility] [id number] [place] [address] 86853- 7587 Sep, [facility] [id number] [address]- 2357 Sep, [facility] [address] [address] [place] [address]- 1715 Sep, [facility] [place] [facility] [address] [id number] [place] [address]- 0716 Sep, [facility] [place] [facility] [address] [id number] [place] [address]- 3553 Sep, [facility] [place] [facility] [address] [id number] [place] [address]- 1371 Sep, [facility] [place] [facility] [address] [id number] [place] [address]- 9245 Sep, [facility] [place] [facility] [address] [id number] [place] [address]- 0772 Aug, [facility] [place] [facility] [address] [id number] [place] [address]- 3246 Aug, [facility] [place] [facility] [address] [id number] [place] [address]- 3110 Aug, [facility] [place] [facility] [address] [id number] [place] [address]- 6646 Aug, [facility] [place] [facility] [address] [id number] [place] [address]- 8551 Aug, [facility] [place] [facility] [address] [facility] [id number] [place] [address]- 7875 Aug, [facility] [place] [facility] [address] [id number] [place] [address]- 8193 Jul, [facility] [place] [facility] [address] [id number] [place] [address]- 4244 Jul, [facility] [place] [facility] [address] [id number] [place] [address]- 9673 Jul, [facility] [place] [facility] [address] [id number] [place] [address]- 8496 Jul, [facility] [place] [facility] [address] [facility] [id number] [place] [address]- 7326 Jul, [facility] [place] [facility] [address] [id number] [place] [address]- 1547 Jul, [facility] [place] [facility] [address] [id number] [place] [address]- 6275 Jul, [facility] [place] [facility] [address] [id number] [place] [address]- 8984 Jul, [facility] [place] [facility] [address] [id number] [place] [address]- 0308 Jul, [facility] [place] [facility] [address] [id number] [place] [address]- 7141 Jul, [facility] [place] [facility] [address] [id number] [place] [address]- 6845 Jun, [facility] [place] [facility] [address] [id number] [place] [address]- 7195 Jun, [facility] [place] [facility] [address] [id number] [place] [address]- 2223 Jun, [facility] [place] [facility] [address] [id number] [place] [address]- 2883 Jun, [facility] [place] [facility] [address] [id number] [place] [address]- 2429 Jun, [facility] [place] [facility] [address] [id number] [place] [address]- 5071 Jun, [facility] [place] [facility] [address] [id number] [place] [address]- 2263 Jun, [facility] [place] [facility] [address] [id number] [place] [address]- 9957 Jun, [facility] [place] [facility] [address] [id number] [place] [address]- 4577 Jun, [facility] [place] [facility] [address] [id number] [place] [address]- 7970 Jun, [facility] [place] [facility] [address] [id number] [place] [address]- 5880 08 Jun, 2014 [facility] [place] [facility] [address] [id number] [place] [address]- 7940 08 Jun, 2014 [facility] [place] [facility] [address] [id number] [place] 9654 Jun, [facility] [place] [facility] [address] [id number] [place] [address]- 9817 Jun, [facility] [place] [facility] [address] [id number] [place] [address]- 2642 Jun, [facility] [place] [facility] [address] [id number] [place] [address]- 7672 Jun, [facility] [place] [facility] [address] [id number] [place] [address]- 4296 May, [facility] [place] [facility] [address] [id number] [place] [address]- 7395 May, [facility] [place] [facility] [address] [id number] [place] [address]- 2079 May, [facility] [place] [facility] [address] [id number] [place] [address]- 9736 May, [facility] [place] [facility] [address] [facility] [id number] [place] [address]- 2795 May, [facility] [place] [facility] [address] [id number] [place] [address]- 0379 May, [facility] [place] [facility] [address] [id number] [place] [address]- 5375 May, [facility] [place] [facility] [address] [id number] [place] [address]- 8764 May, [facility] [place] [facility] [address] [id number] [place] [address]- 5683 May, [facility] [place] [facility] [address] [id number] [place] [address]- 2936 Apr, [facility] [place] [facility] [address] [id number] [place] [address]- 6453 Apr, [facility] [place] [facility] [address] [id number] [place] [address]- 1582 Apr, [facility] [place] [facility] [address] [id number] [place] [address]- 1820 Apr, [facility] [place] [facility] [address] [id number] [place] [address]- 5543 Apr, [facility] [place] [facility] [address] [id number] [place] [address]- 0942 Apr, [facility] [place] [facility] [address] [id number] [place] [address]- 6632 Apr, [facility] [place] [facility] [address] [id number] [place] [address]- 1616 Apr, [facility] [place] [facility] [address] [id number] [place] [address]- 4619 Apr, [facility] [place] [facility] [address] [id number] [place] [address]- 1850 Apr, [facility] [place] [facility] [address] [id number] [place] [address]- 0718 Apr, [facility] [place] [facility] [address] [id number] [place] [address]- 5146 Apr, [facility] [place] [facility] [address] [id number] [place] [address]- 8368 Mar, [facility] [place] [facility] [address] [id number] [place] [address]- 9832 Mar, [facility] [place] [facility] [address] [id number] [place] [address]- 9732 Mar, [facility] [place] [facility] [address] [id number] [place] [address]- 8599 Mar, [facility] [place] [facility] [address] [id number] [place] [address]- 8220 Mar, [facility] [place] [facility] [address] [id number] [place] [address]- 8195 Mar, [facility] [place] [facility] [address] [id number] [place] [address]- 1628 Mar, [facility] [place] [facility] [address] [id number] [place] [address]- 8258 Mar, [facility] [place] [facility] [address] [id number] [place] [address]- 2929 Mar, [facility] [place] [facility] [address] [id number] [place] [address]- 3938 Mar, [facility] [place] [facility] [address] [id number] [place] [address]- 5844 Feb, [facility] [place] [facility] [address] [id number] [place] [address]- 8033 Feb, [facility] [place] [facility] [address] [id number] [place] [address]- 7059 Feb, [facility] [place] [facility] [address] [id number] [place] [address]- 8548 Feb, [facility] [place] [facility] [address] [id number] [place] [address]- 4067 Feb, [facility] [place] [facility] [address] [id number] [place] [address]- 2351 Feb, [facility] [place] [facility] [address] [id number] [place] [address]- 8716 Feb, [facility] [place] [facility] [address] [id number] [place] [address]- 2698 Feb, [facility] [place] [facility] [address] [id number] [place] [address]- 2956 Feb, [facility] [place] [facility] [address] [id number] [place] [address]- 3767 Feb, [facility] [place] [facility] [address] [id number] [place] [address]- 5446 Feb, [facility] [place] [facility] [address] [id number] [place] [address]- 9016 Feb, [facility] [place] [facility] [address] [id number] [place] [address]- 8758 Feb, [facility] [place] [facility] [address] [id number] [place] [address]- 7946 Feb, [facility] [place] [facility] [address] [id number] [place] [address]- 4165 Feb, [facility] [place] [facility] [address] [id number] [place] [address]- 1240 Feb, [facility] [place] [facility] [address] [id number] [place] [address]- 7194 Jan, [facility] [place] [facility] [address] [id number] [place] [address]- 5336 Jan, [facility] [place] [facility] [address] [id number] [place] [address]- 0284 Jan, [facility] [place] [facility] [address] [id number] [place] [address]- 4012 Jan, [facility] [place] [facility] [address] [id number] [place] [address]- 4380 Jan, [facility] [place] [facility] [address] [id number] [place] [address]- 3846 Jan, [facility] [place] [facility] [address] [id number] [place] [address]- 5649 Dec, [facility] [place] [facility] [address] [id number] [place] [address]- 5868 Dec, [facility] [place] [facility] [address] [id number] [place] [address]- 3956 Dec, [facility] [place] [facility] [address] [id number] [place] [address]- 4071 Dec, [facility] [place] [facility] [address] [id number] [place] [address]- 7164 Dec, [facility] [place] [facility] [address] [id number] [place] [address]- 0204 Dec, [facility] [place] [facility] [address] [id number] [place] [address]- 1728 Dec, [facility] [place] [facility] [address] [id number] [place] [address]- 0979 Dec, [facility] [place] [facility] [address] [id number] [place] [address]- 1786 November, [facility] [place] [facility] [address] [id number] [place] [address]- 8290 November, [facility] [place] [facility] [address] [id number] [place] [address]- 5123 November, [facility] [place] [facility] [address] [id number] [place] [address]- 9022 November, [facility] [place] [facility] [address] [id number] [place] [address]- 4310 November, [facility] [place] [facility] [address] [id number] [place] [address]- 0325 November, [facility] [place] [facility] [address] [id number] [place] [address]- 6344 Oct, [facility] [place] [facility] [address] [id number] [place] [address]- 5368 Oct, [facility] [place] [facility] [address] [id number] [place] [address]- 2585 Oct, [facility] [place] [facility] [address] [id number] [place] [address]- 7167 Oct, [facility] [place] [facility] [address] [id number] [place] [address]- 3020 Sep, [facility] [place] [facility] [address] [id number] [place] [address]- 6446 Sep, [facility] [place] [facility] [address] [id number] [place] [address]- 6883 Sep, [facility] [place] [facility] [address] [id number] [place] [address]- 5800 Sep, [facility] [place] [facility] [address] [id number] [place] [address]- 8532 Sep, [facility] [place] [facility] [address] [id number] [place] [address]- 3817 Sep, [facility] [place] [facility] [address] [id number] [place] [address]- 9937 Aug, [facility] [place] [facility] [address] [id number] [place] [address]- 9163 Aug, [facility] [place] [facility] [address] [id number] [place] [address]- 0977 Aug, [facility] [place] [facility] [address] [id number] [place] [address]- 7549 Aug, [facility] [place] [facility] [address] [id number] [place] [address]- 2696 Aug, [facility] [place] [facility] [address] [facility] [id number] [place] [address]- 1261 Aug, [facility] [place] [facility] [address] [id number] [place] [address]- 4791 Jul, [facility] [place] [facility] [address] [id number] [place] [address]- 5187 Jul, [facility] [place] [facility] [address] [id number] [place] [address]- 7714 Jul, [facility] [place] [facility] [address] [id number] [place] [address]- 3817 Jul, [facility] [place] [facility] [address] [id number] [place] [address]- 3712 Jul, [facility] [place] [facility] [address] [id number] [place] [address]- 4565 Jul, [facility] [address] [id number] [place] [address]- 3875 Jul, [facility] [address] [id number] [place] [address]- 8700 Jul, [facility] [address] [id number] [place] [address]- 0878 Jul, [facility] [address] [id number] [place] [address]- 5791 Jul, [facility] [address] [id number] [place] [address]- 3775 Jul, [facility] [address] [id number] [place] [address]- 0772 Jul, [facility] [address] [id number] [place] [address]- 5759 Jul, [facility] [address] [id number] [place] [address]- 9421 Jul, [facility] [address] [id number] [place] [address]- 4731 Jul, [facility] [address] [id number] [place] [address]- 3597 Jun, [facility] [address] [id number] [place] [address]- 9080 Jun, [facility] [place] [facility] [address] [id number] [place] [address]- 6265 Jun, [facility] [place] [facility] [address] [id number] [place] [address]- 0964 Jun, [facility] [place] [facility] [address] [id number] [place] [address]- 9652 May, [facility] [place] [facility] [address] [id number] [place] [address]- 5346 May, [facility] [address] [id number] [id number] May, [facility] [address] [address]25 May, [facility] [address] [address]- 4619 May, [facility] [id number] [address]- 6888 May, [facility] [address] [address]- 1420 May, [facility] [id number] [place] [address] 451465- 3889 May, [facility] [address] [place] [address]- 0809 May, [facility] [id number] [id number] May, [facility] [address] [address]- 7785 May, [facility] [address] [id number] May, [facility] [address] [address]- 0190 May, [facility] [id number] [id number] May, [facility] [id number] [address] May, IMMUNIZATIONS No Known Immunizations SOCIAL HISTORY Never Assessed REASON FOR VISIT Controlled Med Refill 10/06/17 PLAN OF CARE VITAL SIGNS MEDICATIONS Medication Instructions Dosage Frequency Start Date End Date Duration Status Oxycodone-Acetaminophen 5-325 MG Orally 2 times a day 1 tablet 12h 20 Sep, 2017 28 days Active RESULTS No Results [...] leukocytosis--[facility] 01/08/16 Hospitalization History pseudomemranous colitis, sepsis--[facility] 04/21/2016 Hospitalization History C Diff--[facility] 05/10/2016 Hospitalization History sepsis, pneumonia, diarrhea--[facility] 06/11/16 Hospitalization History recurrent cdiff, pneumonia-[facility] 07/22/16 Hospitalization History sepsis,pneumonia- [facility]
--- OUTSIDE RECORDS SUMMARY | 2018-03-18 20:13 | XMS REPORT ---
Author Author DAPHNE YUSUF Organization [facility] Address [address] [place] [address] Care Team Providers Care Administrative Fellow Name Role Phone DAPHNE YUSUF Unavailable PROBLEMS Type Condition ICD9-CM Code RTI93-NI Code Onset Dates Condition Status SNOMED Code Problem Hx of Clostridium difficile infection Z86.19 Active 402205347 Problem History of arthroplasty of right knee Z96.651 Active 793284503 Problem Dysphagia, unspecified dysphagia R13.10 Active 83372222 Problem Chronic pain syndrome G89.4 Active 311965694 Problem 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 681071237 Problem Anxiety F41.9 Active 48301141 Problem Leg pain, left M79.605 Active 251542493 Problem Depression, unspecified depression type F32.9 Active 18268811 Problem Iron deficiency anemia, unspecified iron deficiency anemia type D50.9 Active 94127255 Problem Anemia, unspecified type D64.9 Active 971168743 Problem Seasonal allergic rhinitis due to pollen J30.1 Active 56048088 Problem Insomnia, unspecified G47.00 Active 112401832 Problem 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 316657730 Problem History of cerebrovascular accident with current residual effects I69.90 Active 046738074 Problem Peripheral vascular disease, unspecified I73.9 Active 870765010 Problem Rheumatoid arthritis, involving unspecified site, unspecified rheumatoid factor presence M06.9 Active 00087443 Problem Other chronic pain G89.29 Active 78649621 Problem Primary insomnia F51.01 Active 7626344 Problem Chronic obstructive pulmon disease w acute lower resp infct J44.0 Active 647707326 Problem Atrial fibrillation I48.91 Active 37008745 Problem Dysthymia F34.1 Active 49516199 Problem Osteoarthritis of foot M19.079 Active 947298553 Problem Rheumatoid arthritis M06.9 Active 68836665 Problem Tobacco abuse, 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 173426128 Problem Edema R60.9 Active 506949572 Problem COPD (chronic obstructive pulmonary disease) J44.9 Active 67072581 Problem Hypertension I10 Active 58212599 ALLERGIES No Information ENCOUNTERS Encounter Location Date Diagnosis [facility] [id number] [place] [address] 89306- 0475 Jan, Chronic pain syndrome G89.4 [facility] [id number] [place] [address] 22201- 0903 Jan, [facility] [id number] [place] [address] 65752- 4570 Dec, Chronic pain syndrome G89.4 [facility] [address] 48297- 5567 November, Chronic pain syndrome G89.4 [facility] [id number] [place] [address] 78394- 4097 November, [facility] [id number] [place] [address] 28651- 8639 Oct, Chronic pain syndrome G89.4 [facility] [id number] [place] [address] 67598- 1256 Oct, [facility] [id number] [place] [address] 95023- 3765 Oct, Chronic pain syndrome G89.4 [facility] [id number] [place] [address] 96846- 7556 Oct, [facility] [id number] [place] [address] 00300- 5217 Oct, [facility] [id number] [place] [address] 21509- 6876 Sep, Left upper quadrant pain R10.12 ; Chronic pain syndrome G89.4 ; Left lower quadrant pain R10.32 ; Other chronic pain G89.29 ; Sacrococcygeal disorders, not elsewhere classified M53.3 and Seasonal allergic rhinitis due to pollen J30.1 [facility] [address] [address] 3180 Sep, Chronic pain syndrome G89.4 [facility] [id number] [place] [address] 09384- 3966 Sep, [facility] [address] [address]- 6776 Aug, Chronic pain syndrome G89.4 [facility] [id number] [place] [address] 81344- 5576 Aug, [facility] [id number] [place] [address] 74481- 4431 Aug, Insomnia, unspecified G47.00 [facility] [id number] [place] [address] 69306- 0100 Jul, [facility] [id number] [place] [address] 39948- 2290 Jul, [facility] [address] [address]- 9372 Jul, Chronic pain syndrome G89.4 [facility] [address] [address]- 9255 Jun, Chronic pain syndrome G89.4 [facility] [address] [address]- 0823 Jun, Chronic pain syndrome G89.4 [facility] [address] [address]- 5208 May, [facility] [address] [address]- 4533 May, Shortness of breath R06.02 ; Peripheral vascular disease, unspecified I73.9 ; Pain in right knee M25.561 ; Other chronic pain G89.29 ; Chest wall pain R07.89 ; Chronic pain syndrome G89.4 ; Primary insomnia F51.01 and Ear pain, left H92.02 [facility] [id number] [place] [address] 29482- 9670 May, Anxiety F41.9 [facility] [address] 36922- 7694 Apr, Pneumonia due to infectious organism, unspecified laterality , unspecified part of lung J18.9 ; Hypoxia R09.02 ; Bradycardia R00.1 ; History of Clostridium difficile Z87.19 and Primary insomnia F51.01 [facility] [address] 15712- 2151 Apr, Anxiety F41.9 [facility] [address] 49488- 8157 Apr, [facility] [address] 20623- 1730 Mar, Anxiety F41.9 [facility] [address] 34398- 9107 Feb, [facility] [address] 53094- 1005 Feb, [facility] [address] 95355- 5730 Feb, Abnormal finding on urinalysis R82.90 [facility] [address] 37969- 5671 Feb, [facility] [address] 96303- 8087 Feb, Shortness of breath R06.02 ; Tachycardia R00.0 ; Cough R05 ; Ill feeling R68.89 and Abnormal finding on urinalysis R82.90 [facility] [address] 54411- 0357 Feb, Anxiety F41.9 [facility] [id number] [place] [address] 04716 -2967 Feb, Sore throat J02.9 and Acute diffuse otitis externa of left ear H60.312 [facility] [id number] [place] [address] 42508- 9396 Jan, [facility] [id number] [place] [address] 62447- 1549 Jan, [facility] [id number] [place] [address] [id number] Jan, [facility] [id number] [place] [address] 58388- 2083 Jan, Depression, unspecified depression type F32.9 ; Chronic bronchitis, unspecified chronic bronchitis type J42 ; Chronic pain syndrome G89.4 and Anxiety F41.9 [facility] [id number] [place] [address] 68853- 4894 Jan, [facility] [id number] [place] [address] 91339- 7158 Jan, [facility] [id number] [place] [address] 90653- 2389 Jan, [facility] [id number] [place] [address] [id number] Jan, Chronic pain syndrome G89.4 [facility] [address] [place] [id number] Dec, History of right knee surgery Z98.890 [facility] [id number] [place] [address] 76242- 6413 Dec, [facility] [id number] [place] [address] 05984- 4393 Dec, Chronic pain syndrome G89.4 [facility] [id number] [place] [address] 20898- 6178 November, Anxiety F41.9 [facility] [id number] [place] [address] 25947 -2413 November, Acute cystitis without hematuria N30.00 [facility] [id number] [place] [address] 57191 -3095 November, Fever, unspecified fever cause R50.9 and Acute cystitis without hematuria N30.00 [facility] [id number] [place] [address] 17979- 3458 November, Chronic pain syndrome G89.4 [facility] [id number] [place] [address] 70689- 1011 Oct, Anxiety F41.9 [facility] [id number] [place] [address] 29400- 2431 Oct, Chronic pain syndrome G89.4 [facility] [id number] [place] [address] 78802- 8662 Oct, Chronic pain syndrome G89.4 [facility] [id number] [place] [address] 76551- 6567 Oct, [facility] [id number] [place] [address] 13009- 4213 Oct, Chronic pain syndrome G89.4 ; Pain in right knee M25.561 ; History of Clostridium difficile Z87.19 ; Iron deficiency anemia, unspecified iron deficiency anemia type D50.9 ; Peripheral vascular disease, unspecified I73.9 and Atrial fibrillation I48.91 [facility] [id number] [place] [address] 94218- 5476 Oct, [facility] [id number] [place] [address] 96832- 4706 Oct, Chronic pain syndrome G89.4 [facility] [id number] [place] [address] 89849- 0141 Sep, [facility] [id number] [place] [address] 21912- 2909 Sep, Depression, unspecified depression type F32.9 ; Chronic bronchitis, unspecified chronic bronchitis type J42 ; Chronic pain syndrome G89.4 and Anxiety F41.9 [facility] [address] [id number] Sep, History of Clostridium difficile infection Z86.19 and History of stroke Z86.73 [facility] [id number] [place] [address] [id number] Sep, Anxiety F41.9 [facility] [address] [address] 2546 08 Sep, 2016 Chronic pain syndrome G89.4 [facility] [id number] [place] [address] 57272 2546 Sep, [facility] [id number] [place] [address] [id number] Sep, [facility] [id number] [place] [address] 23435- 4776 Aug, Anxiety F41.9 [facility] [id number] [place] [address] 72453- 5726 Aug, Anxiety F41.9 [facility] [id number] [place] [address] 62457 2545 16 Aug, 2016 [facility] [id number] [place] [address] 21178- 7559 14 Aug, 2016 Acute knee pain, unspecified laterality M25.569 [facility] [address] [address]- 9042 13 Aug, 2016 [facility] [address] [address]- 254 09 Aug, 2016 Chronic pain syndrome G89.4 [facility] [address] [address] 2546 Aug, [facility] [id number] [place] [address] 00353 2546 Aug, [facility] [address], [place] [address] 2546 Jul, [facility] [id number] [place] [address] 80867- 6655 Jul, Anxiety F41.9 [facility] [id number] [place] [address] 20688- 2546 Jul, Clostridium difficile diarrhea A04.7 [facility] [address] [place] [id number] Jul, Clostridium difficile diarrhea A04.7 ; Chronic pain syndrome G89.4 ; Chronic obstructive pulmon disease w acute lower resp infct J44.0 and Pain in right knee M25.561 [facility] [id number] [place] [address] [id number] Jul, [facility] [id number] [place] [address] 26383 -1812 Jul, Anxiety F41.9 and Chronic pain syndrome G89.4 [facility] [id number] [place] [address] 56286- 9357 Jun, Anxiety F41.9 [facility] [id number] [place] [address] 28158- 8546 Jun, Rheumatoid arthritis 714.0 [facility] [id number] [place] [address] 08398- 8248 Jun, Chronic pain syndrome G89.4 [facility] [id number] [place] [address] 58477- 8640 Jun, [facility] [id number] [place] [address] 74160- 7802 Jun, [facility] [id number] [place] [address] 63985- 3996 Jun, History of pneumonia Z87.01 and History of Clostridium difficile Z87.19 [facility] [id number] [place] [address] 35602- 2876 Jun, [facility] [address] [address]- 9805 May, [facility] [id number] [place] [address] 10899- 6522 May, Anxiety F41.9 [facility] [id number] [place] [address] 84544- 2816 May, Chronic pain syndrome G89.4 [facility] [id number] [place] [address] 50518- 5646 May, Chronic bronchitis, unspecified chronic bronchitis type J42 [facility] [id number] [place] [address] 04289- 9186 May, [facility] [id number] [place] [address] 52365- 4027 May, C. difficile diarrhea A04.7 ; Peripheral edema R60.9 ; COPD (chronic obstructive pulmonary disease) J44.9 ; Rheumatoid arthritis, involving unspecified site, unspecified rheumatoid factor presence M06.9 ; Pain in right knee M25.561 ; Pain in left knee M25.562 and Other chronic pain G89.29 [facility] [id number] [place] [address] 94177 2546 May, [facility] [id number] [place] [address] 67794- 2273 May, [facility] [id number] [place] [address] 47586- 2224 May, Anxiety F41.9 [facility] [id number] [place] [address] 81388 2546 Apr, [facility] [id number] [place] [address] 81585 2546 Apr, Chronic pain syndrome G89.4 [facility] [id number] [place] [address] 12923 2546 Apr, Leg pain, left M79.605 [facility] [id number] [place] [address] 28788 2546 Apr, [facility] [id number], [place] [address]- 6847 Apr, [facility] [id number] [place] [address] 11427- 4869 Apr, [facility] [id number] [place] [address] 84849- 9860 Mar, Chronic pain syndrome G89.4 [facility] [id number] [place] [address] 96164- 7775 Mar, Acute frontal sinusitis, recurrence not specified J01.10 [facility] [id number] [place] [address] 43551- 2618 20 Mar, 2016 Iron deficiency anemia, unspecified iron deficiency anemia type D50.9 ; Rheumatoid arthritis with positive rheumatoid factor, involving unspecified site M05.9 and Depression, unspecified depression type F32.9 [facility] [id number] [place] [address] 48697- 5182 Mar, Iron deficiency anemia, unspecified iron deficiency anemia type D50.9 ; Depression, unspecified depression type F32.9 and Rheumatoid arthritis with positive rheumatoid factor, involving unspecified site M05.9 [facility] [id number] [place] [address] 81909- 7079 Mar, [facility] [id number] [place] [address] 21342- 3881 Mar, [facility] [id number] [place] [address] 04382- 4391 Feb, Chronic pain syndrome G89.4 [facility] [id number] [place] [address] 36219- 5198 Feb, 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9 [facility] [id number] [place] [address] 25643- 6727 Feb, [facility] [id number] [place] [address] 67399- 8403 Feb, Chronic bronchitis, unspecified chronic bronchitis type J42 [facility] [id number] [place] [address] 96599- 7065 Feb, Iron deficiency anemia, unspecified iron deficiency anemia type D50.9 [facility] [id number] [place] [address] 25022- 7238 Feb, Chronic pain syndrome G89.4 [facility] [id number] [place] [address] 70054- 8200 Feb, Anemia, unspecified type D64.9 and Hypoxia R09.02 [facility] [id number] [place] [address] 68119- 5366 Feb, Anemia, unspecified type D64.9 [facility] [id number] [place] [address] 97536- 7185 Jan, [facility] [id number] [place] [address] 76277- 2210 Jan, Anemia, unspecified type D64.9 [facility] [id number] [place] [address] 00800- 4029 Jan, [facility] [id number] [place] [address] 11346- 2243 Jan, Anemia, unspecified type D64.9 [facility] [address] [address]- 1503 Jan, Anemia, unspecified type D64.9 [facility] [id number] [place] [address] 27633- 4603 Jan, [facility] [id number] [place] [address] 63828- 0278 Jan, Anemia, unspecified type D64.9 [facility] [id number] [place] [address] 36380- 0497 Jan, [facility] [id number] [place] [address] 66490- 4733 Jan, [facility] [id number] [place] [address] 96325- 8076 Jan, Chronic pain syndrome G89.4 [facility] [id number] [place] [address] 42001- 0889 Jan, Anemia, unspecified type D64.9 [facility] [id number] [place] [address] 99301- 0113 Jan, Dysthymia F34.1 ; Cervicalgia M54.2 ; Fatigue, unspecified type R53.83 and Depression, unspecified depression type F32.9 [facility] [id number] [place] [address] 87879- 0599 Dec, [facility] [id number] [place] [address] 70544- 5094 Dec, Anxiety F41.9 [facility] [id number] [place] [address] 96092- 3730 Dec, Chronic pain syndrome G89.4 [facility] [id number] [place] [address] 74911- 8218 November, [facility] [id number] [place] [address] 57850- 7809 November, Edema R60.9 and Dizziness R42 [facility] [id number] [place] [address] 70133- 4984 November, [facility] [id number] [place] [address] 38870- 3252 November, [facility] [id number] [place] [address] 49759- 3764 November, COPD (chronic obstructive pulmonary disease) J44.9 ; Increased tracheal secretions J39.[address] [facility] [id number] [place] [address] 71973 -0938 Oct, [facility] [address] 85191 -3493 Oct, Shortness of breath R06.02 and Edema R60.9 [facility] [id number] [place] [address] 37463- 8021 Oct, Chronic bronchitis, unspecified chronic bronchitis type J42 ; Peripheral vascular disease, unspecified I73.9 ; Rheumatoid arthritis M06.9 and Atrial fibrillation I48.91 [facility] [id number] [place] [address] 54885- 1830 Oct, [facility] [id number] [place] [address] 95534- 9410 Oct, [facility] [id number] [place] [address] 90374- 9331 Oct, [facility] [id number] [place] [address] 93073- 7347 Oct, [facility] [id number] [place] [address] 29355 -5588 Oct, COPD exacerbation J44.1 [facility] [id number] [place] [address] 79167- 2349 Sep, [facility] [id number] [place] [address] 01503- 5276 Sep, [facility] [address] [address]- 4960 Sep, [facility] [id number] [place] [address] 33681- 4311 Aug, [facility] [id number] [place] [address] 02347- 4666 Aug, 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 and PVD (peripheral vascular disease ) I73.9 [facility] [id number] [place] [address] [id number]- [id number] Aug, Bronchitis J40 ; COPD (chronic obstructive pulmonary disease ) J44.9 and Dysthymia F34.1 [facility] [id number] [place] [address] [phone] Aug, [facility] [id number] [place] [address] [id number]- [phone] Jul, [facility] [id number] [place] [address] [id number]- [id number] Jul, [facility] [id number] [place] [address] [phone] [phone] Jul, [facility] [id number] [address] Jun, [facility] [id number] [place] [address] [phone]- [phone] Jun, [facility] [id number] [address] Jun, Peripheral vascular disease I73.9 [facility] [id number] [place] [address], [place] [phone] Jun, [facility] [address] [id number] [address] Jun, [facility] [id number] [place] [address] 41294- 3456 Jun, Leg pain, left M79.605 ; Dysphagia, unspecified dysphagia R13.10 ; Insomnia, unspecified type G47.00 ; PVD (peripheral vascular disease) I73.9 and 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 [facility] [id number] [place] [address] 54621- 4925 May, [facility] [id number] [place] [address] 04276- 3750 May, [facility] [id number] [place] [address] 65313- 6233 May, [facility] [id number] [place] [address] 08233- 1557 May, [facility] [id number] [place] [address] 74003- 5912 May, [facility] [id number] [place] [address] 85704- 4333 Apr, [facility] [id number] [place] [address] 69136- 8235 Apr, [facility] [id number] [place] [address] 75985- 8109 Mar, [facility] [id number] [place] [address] 72735- 0010 Mar, [facility] [id number] [place] [address] 22754- 3505 Feb, [facility] [id number] [place] [address] 52316- 4340 Feb, Nicotine abuse 305.1 ; Arthralgia 719.40 and 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 [facility] [id number] [place] [address] 446232- 1936 Feb, [facility] [id number] [place] [address] [id number]- 0046 Jan, [facility] [id number] [address] 1096 16 Jan, 2014 [facility] [id number] [address] 8217 Jan, [facility] [id number] [address] 1758 Jan, [facility] [id number] [place] [address] 37324- 0643 Jan, 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 ; Rheumatoid arthritis 714.0 ; Hypertension 401.9 ; GERD (gastroesophageal reflux disease) 530.81 ; Nicotine addiction 305.1 and Leukocytosis 288.60 [facility] [id number] [address] 3425 Jan, 2014 [facility] [id number] [address] 5876 Jan, [facility] [address] [address]- 4481 Jan, [facility] [address] [address]- 2815 Jan, [facility] [address] [address]- 6704 Jan, [facility] [address] [address]- 4692 Dec, [facility] [id number] [address]- 8455 Dec, [facility] [address] [address]- 3809 Dec, [facility] [address] [address]- 5504 Dec, [facility] [id number] [address]- 0695 November, [facility] [id number] [place] [address] [id number]- 0709 November, [facility] [id number] [place] [address] 993131- 5598 November, Shortness of breath 786.05 [facility] [id number] [place] [address] 72723- 7118 November, Rheumatoid arthritis 714.0 [facility] [id number] [place] [address] 57754- 8637 November, 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 [facility] [id number] [place] [address] 454812- 1197 November, Neuropathy 355.9 ; Insomnia 780.52 ; Dysthymia 300.4 ; Shortness of breath 786.05 ; Rheumatoid arthritis 714.0 and Nausea 787.02 [facility] [id number] [place] [address] 93759- 3332 November, [facility] [id number] [place] [address] 86573- 5008 November, [facility] [id number] [place] [address] 94292- 6824 Oct, [facility] [id number] [place] [address] 88944- 5582 Oct, [facility] [id number] [address]- 2572 Oct, [facility] [id number] [place] [address] 41538- 5021 Oct, [facility] [id number] [place] [address] 10457- 1874 Sep, [facility] [id number] [place] [address] 52955- 7186 Sep, [facility] [id number] [address]- 8795 Sep, [facility] [address] [place] [address]- 6696 Sep, [facility] [place] [facility] [address] [id number] [place] [address]- 9381 Sep, [facility] [place] [facility] [address] [id number] [place] [address]- 4817 Sep, [facility] [place] [facility] [address] [id number] [place] [address]- 6707 Sep, [facility] [place] [facility] [address] [id number] [place] [address]- 1608 Sep, [facility] [place] [facility] [address] [id number] [place] [address]- 5143 Aug, [facility] [place] [facility] [address] [id number] [place] [address]- 1602 Aug, [facility] [place] [facility] [address] [id number] [place] [address]- 9321 Aug, [facility] [place] [facility] [address] [id number] [place] [address]- 7330 Aug, [facility] [place] [facility] [address] [id number] [place] [address]- 8709 Aug, [facility] [place] [facility] [address] [facility] [id number] [place] [address]- 5405 Aug, [facility] [place] [facility] [address] [id number] [place] [address]- 7036 Jul, [facility] [place] [facility] [address] [id number] [place] [address]- 2866 Jul, [facility] [place] [facility] [address] [id number] [place] [address]- 9649 Jul, [facility] [place] [facility] [address] [id number] [place] [address]- 3846 Jul, [facility] [place] [facility] [address] [facility] [id number] [place] [address]- 9344 Jul, [facility] [place] [facility] [address] [id number] [place] [address]- 6376 Jul, [facility] [place] [facility] [address] [id number] [place] [address]- 1906 Jul, [facility] [place] [facility] [address] [id number] [place] [address]- 9262 Jul, [facility] [place] [facility] [address] [id number] [place] [address]- 8544 Jul, [facility] [place] [facility] [address] [id number] [place] [address]- 1827 Jul, [facility] [place] [facility] [address] [id number] [place] [address]- 8466 Jun, [facility] [place] [facility] [address] [id number] [place] [address]- 3565 Jun, [facility] [place] [facility] [address] [id number] [place] [address]- 2637 Jun, [facility] [place] [facility] [address] [id number] [place] [address]- 9727 Jun, [facility] [place] [facility] [address] [id number] [place] [address]- 3514 Jun, [facility] [place] [facility] [address] [id number] [place] [address]- 7057 Jun, [facility] [place] [facility] [address] [id number] [place] [address]- 0437 Jun, [facility] [place] [facility] [address] [id number] [place] [address]- 8726 Jun, [facility] [place] [facility] [address] [id number] [place] [address]- 0692 Jun, [facility] [place] [facility] [address] [id number] [place] [address]- 0506 Jun, [facility] [place] [facility] [address] [id number] [place] [address]- 9758 08 Jun, 2014 [facility] [place] [facility] [address] [id number] [place] [address]- 4799 08 Jun, 2014 [facility] [place] [facility] [address] [id number] [place] 5642 Jun, [facility] [place] [facility] [address] [id number] [place] [address]- 4661 Jun, [facility] [place] [facility] [address] [id number] [place] [address]- 2360 Jun, [facility] [place] [facility] [address] [id number] [place] [address]- 8114 Jun, [facility] [place] [facility] [address] [id number] [place] [address]- 6232 May, [facility] [place] [facility] [address] [id number] [place] [address]- 0719 May, [facility] [place] [facility] [address] [id number] [place] [address]- 3791 May, [facility] [place] [facility] [address] [id number] [place] [address]- 0541 May, [facility] [place] [facility] [address] [facility] [id number] [place] [address]- 3678 May, [facility] [place] [facility] [address] [id number] [place] [address]- 1890 May, [facility] [place] [facility] [address] [id number] [place] [address]- 7522 May, [facility] [place] [facility] [address] [id number] [place] [address]- 9516 May, [facility] [place] [facility] [address] [id number] [place] [address]- 3030 May, [facility] [place] [facility] [address] [id number] [place] [address]- 4390 Apr, [facility] [place] [facility] [address] [id number] [place] [address]- 8167 Apr, [facility] [place] [facility] [address] [id number] [place] [address]- 8230 Apr, [facility] [place] [facility] [address] [id number] [place] [address]- 6183 Apr, [facility] [place] [facility] [address] [id number] [place] [address]- 8819 Apr, [facility] [place] [facility] [address] [id number] [place] [address]- 0736 Apr, [facility] [place] [facility] [address] [id number] [place] [address]- 8161 Apr, [facility] [place] [facility] [address] [id number] [place] [address]- 6242 Apr, [facility] [place] [facility] [address] [id number] [place] [address]- 1712 Apr, [facility] [place] [facility] [address] [id number] [place] [address]- 2082 Apr, [facility] [place] [facility] [address] [id number] [place] [address]- 6471 Apr, [facility] [place] [facility] [address] [id number] [place] [address]- 8533 Apr, [facility] [place] [facility] [address] [id number] [place] [address]- 2172 Mar, [facility] [place] [facility] [address] [id number] [place] [address]- 0275 Mar, [facility] [place] [facility] [address] [id number] [place] [address]- 8686 Mar, [facility] [place] [facility] [address] [id number] [place] [address]- 0544 Mar, [facility] [place] [facility] [address] [id number] [place] [address]- 1127 Mar, [facility] [place] [facility] [address] [id number] [place] [address]- 5483 Mar, [facility] [place] [facility] [address] [id number] [place] [address]- 2482 Mar, [facility] [place] [facility] [address] [id number] [place] [address]- 2184 Mar, [facility] [place] [facility] [address] [id number] [place] [address]- 4670 Mar, [facility] [place] [facility] [address] [id number] [place] [address]- 1600 Mar, [facility] [place] [facility] [address] [id number] [place] [address]- 1866 Feb, [facility] [place] [facility] [address] [id number] [place] [address]- 1624 Feb, [facility] [place] [facility] [address] [id number] [place] [address]- 9138 Feb, [facility] [place] [facility] [address] [id number] [place] [address]- 4629 Feb, [facility] [place] [facility] [address] [id number] [place] [address]- 5396 Feb, [facility] [place] [facility] [address] [id number] [place] [address]- 5490 Feb, [facility] [place] [facility] [address] [id number] [place] [address]- 3279 Feb, [facility] [place] [facility] [address] [id number] [place] [address]- 1530 Feb, [facility] [place] [facility] [address] [id number] [place] [address]- 1451 Feb, [facility] [place] [facility] [address] [id number] [place] [address]- 2597 Feb, [facility] [place] [facility] [address] [id number] [place] [address]- 2116 Feb, [facility] [place] [facility] [address] [id number] [place] [address]- 6638 Feb, [facility] [place] [facility] [address] [id number] [place] [address]- 0408 Feb, [facility] [place] [facility] [address] [id number] [place] [address]- 7769 Feb, [facility] [place] [facility] [address] [id number] [place] [address]- 7664 Feb, [facility] [place] [facility] [address] [id number] [place] [address]- 0938 Feb, [facility] [place] [facility] [address] [id number] [place] [address]- 4753 Jan, [facility] [place] [facility] [address] [id number] [place] [address]- 2095 Jan, [facility] [place] [facility] [address] [id number] [place] [address]- 5044 Jan, [facility] [place] [facility] [address] [id number] [place] [address]- 7367 Jan, [facility] [place] [facility] [address] [id number] [place] [address]- 9439 Jan, [facility] [place] [facility] [address] [id number] [place] [address]- 1875 Jan, [facility] [place] [facility] [address] [id number] [place] [address]- 4708 Dec, [facility] [place] [facility] [address] [id number] [place] [address]- 1199 Dec, [facility] [place] [facility] [address] [id number] [place] [address]- 4625 Dec, [facility] [place] [facility] [address] [id number] [place] [address]- 4619 Dec, [facility] [place] [facility] [address] [id number] [place] [address]- 9660 Dec, [facility] [place] [facility] [address] [id number] [place] [address]- 2042 Dec, [facility] [place] [facility] [address] [id number] [place] [address]- 3283 Dec, [facility] [place] [facility] [address] [id number] [place] [address]- 7882 Dec, [facility] [place] [facility] [address] [id number] [place] [address]- 0922 November, [facility] [place] [facility] [address] [id number] [place] [address]- 5048 November, [facility] [place] [facility] [address] [id number] [place] [address]- 2597 November, [facility] [place] [facility] [address] [id number] [place] [address]- 0690 November, [facility] [place] [facility] [address] [id number] [place] [address]- 3944 November, [facility] [place] [facility] [address] [id number] [place] [address]- 7887 November, [facility] [place] [facility] [address] [id number] [place] [address]- 1079 Oct, [facility] [place] [facility] [address] [id number] [place] [address]- 2731 Oct, [facility] [place] [facility] [address] [id number] [place] [address]- 3228 Oct, [facility] [place] [facility] [address] [id number] [place] [address]- 3017 Oct, [facility] [place] [facility] [address] [id number] [place] [address]- 2675 Sep, [facility] [place] [facility] [address] [id number] [place] [address]- 6281 Sep, [facility] [place] [facility] [address] [id number] [place] [address]- 6812 Sep, [facility] [place] [facility] [address] [id number] [place] [address]- 5728 Sep, [facility] [place] [facility] [address] [id number] [place] [address]- 3571 Sep, [facility] [place] [facility] [address] [id number] [place] [address]- 6026 Sep, [facility] [place] [facility] [address] [id number] [place] [address]- 5343 Aug, [facility] [place] [facility] [address] [id number] [place] [address]- 8443 Aug, [facility] [place] [facility] [address] [id number] [place] [address]- 5972 Aug, [facility] [place] [facility] [address] [id number] [place] [address]- 7390 Aug, [facility] [place] [facility] [address] [id number] [place] [address]- 7236 Aug, [facility] [place] [facility] [address] [facility] [id number] [place] [address]- 8312 Aug, [facility] [place] [facility] [address] [id number] [place] [address]- 1177 Jul, [facility] [place] [facility] [address] [id number] [place] [address]- 7738 Jul, [facility] [place] [facility] [address] [id number] [place] [address]- 9699 Jul, [facility] [place] [facility] [address] [id number] [place] [address]- 9006 Jul, [facility] [place] [facility] [address] [id number] [place] [address]- 7041 Jul, [facility] [place] [facility] [address] [id number] [place] [address]- 9067 Jul, [facility] [address] [id number] [place] [address]- 4145 Jul, [facility] [address] [id number] [place] [address]- 8210 Jul, [facility] [address] [id number] [place] [address]- 8986 Jul, [facility] [address] [id number] [place] [address]- 1685 Jul, [facility] [address] [id number] [place] [address]- 9313 Jul, [facility] [address] [id number] [place] [address]- 6802 Jul, [facility] [address] [id number] [place] [address]- 7969 Jul, [facility] [address] [id number] [place] [address]- 5438 Jul, [facility] [address] [id number] [place] [address]- 6457 Jul, [facility] [address] [id number] [place] [address]- 1090 Jun, [facility] [address] [id number] [place] [address]- 5534 Jun, [facility] [place] [facility] [address] [id number] [place] [address]- 3587 Jun, [facility] [place] [facility] [address] [id number] [place] [address]- 8683 Jun, [facility] [place] [facility] [address] [id number] [place] [address]- 9482 May, [facility] [place] [facility] [address] [id number] [address]- 5434 May, [facility] [address] [id number] [id number] May, [facility] [address] [address]- 0805 May, [facility] [address] [address]- 3262 May, [facility] [id number] [address]- 3327 May, [facility] [id number] [address] May, [facility] [id number] [place] [address] May, [facility] [id number] [address] May, [facility] [id number] [id number] May, [facility] [id number] [address] May, [facility] [id number] [id number] May, [facility] [id number] [address] May, [facility] [id number] [id number] May, [facility] [id number] [address] May, IMMUNIZATIONS No Known Immunizations SOCIAL HISTORY Never Assessed REASON FOR VISIT Refill request PLAN OF CARE VITAL SIGNS MEDICATIONS Medication Instructions Dosage Frequency Start Date End Date Duration Status Symbicort 160-4.5 MCG/ACT Inhalation Twice a day 2 puffs 12h 30 Active RESULTS No Results PROCEDURES No Known [...] leukocytosis--[facility] 01/08/16 Hospitalization History pseudomemranous colitis, sepsis--[facility] 04/21/2016 Hospitalization History C Diff--[facility] 05/10/2016 Hospitalization History sepsis, pneumonia, diarrhea--[facility] 06/11/16 Hospitalization History recurrent cdiff, pneumonia-[facility] 07/22/16 Hospitalization History sepsis,pneumonia- [facility]
--- OUTSIDE RECORDS SUMMARY | 2018-03-18 20:14 | XMS REPORT ---
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 751309384 Problem 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 983089969 Problem Edema R60.9 Active 213665945 Problem Leg pain, left M79.605 Active 131277400 Problem Chronic pain syndrome G89.4 Active 148766308 Problem Depression, unspecified depression type F32.9 Active 93896735 Problem Anxiety F41.9 Active 59189001 Problem Primary insomnia F51.01 Active 5322971 Problem Chronic obstructive pulmon disease w acute lower resp infct J44.0 Active Problem Peripheral vascular disease, unspecified I73.9 Active 316714002 Problem PVD (peripheral vascular disease) I73.9 Active 366577773 Problem Dysphagia, unspecified dysphagia R13.10 Active 92303920 Problem Iron deficiency anemia, unspecified iron deficiency anemia type D50.9 Active 69585823 Problem Anemia, unspecified type D64.9 Active 540325173 Problem Other chronic pain G89.29 Active 67189563 Problem Rheumatoid arthritis, involving unspecified site, unspecified rheumatoid factor presence M06.9 Active 48495644 Problem 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 102337769 Problem Osteoarthritis of foot M19.079 Active 000650171 Problem History of cerebrovascular accident with current residual effects I69.90 Active 228569292 Problem Hypertension I10 Active 67837121 Problem Dysthymia F34.1 Active 58871345 Problem COPD (chronic obstructive pulmonary disease) J44.9 Active 75674892 Problem Rheumatoid arthritis M06.9 Active 70834751 Problem Atrial fibrillation I48.91 Active 46938735 ALLERGIES No Information SOCIAL HISTORY Never Assessed PLAN OF CARE VITAL SIGNS MEDICATIONS Medication Instructions Dosage Frequency Start Date End Date Duration Status Macrobid 100 MG Orally every 12 hrs 1 capsule with food 12h November, November, 7 day(s) Active RESULTS No Results PROCEDURES No [...]
--- OUTSIDE RECORDS SUMMARY | 2018-03-18 20:15 | XMS REPORT ---
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 Name Role Phone DAPHNE YUSUF Unavailable PROBLEMS Type Condition ICD9-CM Code ELK58-JI Code Onset Dates Condition Status SNOMED Code Problem Hx of Clostridium difficile infection Z86.19 Active 753344235 Problem History of arthroplasty of right knee Z96.651 Active 787810111 Problem Dysphagia, unspecified dysphagia R13.10 Active 77923779 Problem Chronic pain syndrome G89.4 Active 393975932 Problem 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 652350000 Problem Anxiety F41.9 Active 84769152 Problem Leg pain, left M79.605 Active 896394963 Problem Depression, unspecified depression type F32.9 Active 65197387 Problem Iron deficiency anemia, unspecified iron deficiency anemia type D50.9 Active 10872268 Problem Anemia, unspecified type D64.9 Active 059229810 Problem Seasonal allergic rhinitis due to pollen J30.1 Active 61392745 Problem Insomnia, unspecified G47.00 Active 181691514 Problem 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 091884698 Problem History of cerebrovascular accident with current residual effects I69.90 Active 696335160 Problem Peripheral vascular disease, unspecified I73.9 Active 519593421 Problem Rheumatoid arthritis, involving unspecified site, unspecified rheumatoid factor presence M06.9 Active 66956567 Problem Other chronic pain G89.29 Active 58879827 Problem Primary insomnia F51.01 Active 2043426 Problem Chronic obstructive pulmon disease w acute lower resp infct J44.0 Active 613692805 Problem Atrial fibrillation I48.91 Active 32043555 Problem Dysthymia F34.1 Active 68232421 Problem Osteoarthritis of foot M19.079 Active 268360257 Problem Rheumatoid arthritis M06.9 Active 21647999 Problem Tobacco abuse, 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 032460073 Problem Edema R60.9 Active 644252136 Problem COPD (chronic obstructive pulmonary disease) J44.9 Active 82299012 Problem Hypertension I10 Active 96713517 ALLERGIES No Information ENCOUNTERS Encounter Location Date Diagnosis [facility] [id number] [place] [address] 29754- 9590 Sep, Left upper quadrant pain R10.12 ; Chronic pain syndrome G89.4 ; Left lower quadrant pain R10.32 ; Other chronic pain G89.29 ; Sacrococcygeal disorders, not elsewhere classified M53.3 and Seasonal allergic rhinitis due to pollen J30.1 [facility] [id number] [place] [address] 79618- 2101 Sep, Chronic pain syndrome G89.4 [facility] [id number] [place] [address] 97383- 6490 Sep, [facility] [id number] [place] [address] 86691- 1064 Aug, Chronic pain syndrome G89.4 [facility] [id number] [place] [address] 88346- 8397 Aug, [facility] [id number] [place] [address] 22290- 2790 Aug, Insomnia, unspecified G47.00 [facility] [id number] [place] [address] 54856- 0966 Jul, [facility] [id number] [place] [address] 65807- 4591 Jul, [facility] [id number] [place] [address] 63268- 5450 Jul, Chronic pain syndrome G89.4 [facility] [id number] [place] [address] 96756- 1878 Jun, Chronic pain syndrome G89.4 [facility] [id number] [place] [address] 04456- 0736 04 Dec, 2017 Chronic pain syndrome G89.4 [facility] [id number] [place] [address] 89576- 1728 May, [facility] [id number] [place] [address] 53664- 1255 May, Shortness of breath R06.02 ; Peripheral vascular disease, unspecified I73.9 ; Pain in right knee M25.561 ; Other chronic pain G89.29 ; Chest wall pain R07.89 ; Chronic pain syndrome G89.4 ; Primary insomnia F51.01 and Ear pain, left H92.02 [facility] [id number] [place] [address] 74272- 9509 May, Anxiety F41.9 [facility] [id number] [place] [address] 15356- 1091 Apr, Pneumonia due to infectious organism, unspecified laterality , unspecified part of lung J18.9 ; Hypoxia R09.02 ; Bradycardia R00.1 ; History of Clostridium difficile Z87.19 and Primary insomnia F51.01 [facility] [id number] [place] [address] 85666- 1112 Apr, Anxiety F41.9 [facility] [id number] [place] [address] 12655- 5009 Apr, [facility] [id number] [place] [address] 70403- 7692 Mar, Anxiety F41.9 [facility] [id number] [place] [address] 16630- 7989 Feb, [facility] [id number] [place] [address] 68710- 5881 Feb, [facility] [address] 63469- 5843 Feb, Abnormal finding on urinalysis R82.90 [facility] [id number] [place] [address] 30447- 5121 Feb, [facility] [id number] [place] [address] 52463- 2701 Feb, Shortness of breath R06.02 ; Tachycardia R00.0 ; Cough R05 ; Ill feeling R68.89 and Abnormal finding on urinalysis R82.90 [facility] [id number] [place] [address] 08909- 3796 Feb, Anxiety F41.9 [facility] [id number] [place] [address] 79694 -6994 Feb, Sore throat J02.9 and Acute diffuse otitis externa of left ear H60.312 [place] [address] 79697- 7131 Jan, [facility] [id number] [place] [address] 58299- 2342 Jan, [facility] [address] [id number] Jan, [facility] [id number] [place] [address] 32476- 1356 Jan, Depression, unspecified depression type F32.9 ; Chronic bronchitis, unspecified chronic bronchitis type J42 ; Chronic pain syndrome G89.4 and Anxiety F41.9 [facility] [id number] [place] [address] 54108- 9891 Jan, [facility] [id number] [place] [address] 75079- 0462 Jan, [facility] [id number] [place] [address] 28944- 8812 Jan, [facility] [address] [id number] Jan, Chronic pain syndrome G89.4 [facility] [address] [place] [id number] Dec, History of right knee surgery Z98.890 [place] [id number] [place] [address] 44532- 6578 Dec, [facility] [address] [address]- 2607 Dec, Chronic pain syndrome G89.4 [facility] [address] [address]- 6935 November, Anxiety F41.9 [facility] [id number] [place] [address] 79239 -7019 November, Acute cystitis without hematuria N30.00 [facility] [id number] [place] [address] 53329 -1495 November, Fever, unspecified fever cause R50.9 and Acute cystitis without hematuria N30.00 [facility] [address] [address]- 5429 November, Chronic pain syndrome G89.4 [facility] [id number] [place] [address] 66164- 5917 Oct, Anxiety F41.9 [facility] [id number] [place] [address] 06872- 8330 Oct, Chronic pain syndrome G89.4 [facility] [address] [address]- 9057 Oct, Chronic pain syndrome G89.4 [facility] [address] [address]- 0353 Oct, [facility] [address] [address]- 3263 Oct, Chronic pain syndrome G89.4 ; Pain in right knee M25.561 ; History of Clostridium difficile Z87.19 ; Iron deficiency anemia, unspecified iron deficiency anemia type D50.9 ; Peripheral vascular disease, unspecified I73.9 and Atrial fibrillation I48.91 [facility] [address] [address]- 0887 Oct, [facility] [id number] [address] 0480 Oct, Chronic pain syndrome G89.4 [facility] [address] 5443 Sep, [facility] [address] [address]- 2798 Sep, Depression, unspecified depression type F32.9 ; Chronic bronchitis, unspecified chronic bronchitis type J42 ; Chronic pain syndrome G89.4 and Anxiety F41.9 [facility] [address] [id number] Sep, History of Clostridium difficile infection Z86.19 and History of stroke Z86.73 [facility] [id number] [place] [address] [id number] Sep, Anxiety F41.9 [facility] [id number] [place] [address] 27181- 9029 Sep, Chronic pain syndrome G89.4 [facility] [address] [address]- 2678 Sep, [facility] [id number] [place] [address] [id number] Sep, [facility] [address] [address]- 5452 23 Aug, 2016 Anxiety F41.9 [facility] [id number] [place] [address] 10547- 3683 21 Aug, 2016 Anxiety F41.9 [facility] [address] [address]- 2762 16 Aug, 2016 [facility] [address] [place] [address] 82265- 9742 14 Aug, 2016 Acute knee pain, unspecified laterality M25.569 [facility] [address] [address]- 7472 13 Aug, 2016 [facility] [address] [address]- 6139 Aug, Chronic pain syndrome G89.4 [facility] [id number] [place] [address] 22353- 7091 Aug, [facility] [id number] [place] [address] 085564- 3489 Aug, [facility] [id number] [place] [address] 40495- 6083 Jul, [facility] [id number] [place] [address] 79105- 3595 Jul, Anxiety F41.9 [facility] [id number] [place] [address] 10521- 7219 Jul, Clostridium difficile diarrhea A04.7 [facility] [address] [id number] Jul, Clostridium difficile diarrhea A04.7 ; Chronic pain syndrome G89.4 ; Chronic obstructive pulmon disease w acute lower resp infct J44.0 and Pain in right knee M25.561 [facility] [id number] [place] [address] [id number] Jul, [facility] [address] [address] -4196 Jul, Anxiety F41.9 and Chronic pain syndrome G89.4 [facility] [id number] [place] [address] 43823- 9172 Jun, Anxiety F41.9 [facility] [id number] [place] [address] 84460- 4996 Jun, Rheumatoid arthritis 714.0 [facility] [id number] [place] [address] 07046- 2921 Jun, Chronic pain syndrome G89.4 [facility] [id number] [place] [address] 50634- 7714 Jun, [facility] [address] [address]- 0233 13 Jun, 2016 [facility] [address] [address]- 2898 12 Jun, 2016 History of pneumonia Z87.01 and History of Clostridium difficile Z87.19 [facility] [address] [address]- 6775 06 Jun, 2016 [facility] [id number] [place] [address] 81146- 9901 May, [facility] [id number] [place] [address] 46251- 9657 May, Anxiety F41.9 [facility] [id number] [place] [address] 82892- 7323 May, Chronic pain syndrome G89.4 [facility] [id number] [place] [address] 05705- 1292 May, Chronic bronchitis, unspecified chronic bronchitis type J42 [facility] [address] [address]- 0993 May, [facility] [address] [address]- 5590 May, C. difficile diarrhea A04.7 ; Peripheral edema R60.9 ; COPD (chronic obstructive pulmonary disease) J44.9 ; Rheumatoid arthritis, involving unspecified site, unspecified rheumatoid factor presence M06.9 ; Pain in right knee M25.561 ; Pain in left knee M25.562 and Other chronic pain G89.29 [facility] [address] [address]- 9732 May, [facility] [id number] [place] [address] 05575- 1645 May, [facility] [address] [address]- 5047 May, Anxiety F41.9 [facility] [address] [address]- 2523 Apr, [facility] [address] [address]- 3590 Apr, Chronic pain syndrome G89.4 [facility] [address] [address]- 5235 Apr, Leg pain, left M79.605 [facility] [id number] [place] [address] 50217- 2887 Apr, [facility] [id number] [place] [address] 17506- 4561 Apr, [facility] [id number] [place] [address] 33519- 1448 Apr, [facility] [id number] [place] [address] 23023- 0588 Mar, Chronic pain syndrome G89.4 [facility] [address] [address]- 5604 Mar, Acute frontal sinusitis, recurrence not specified J01.10 [facility] [address] [address]- 9998 20 Mar, 2016 Iron deficiency anemia, unspecified iron deficiency anemia type D50.9 ; Rheumatoid arthritis with positive rheumatoid factor, involving unspecified site M05.9 and Depression, unspecified depression type F32.9 [facility] [address] [address]- 4122 13 Mar, 2016 Iron deficiency anemia, unspecified iron deficiency anemia type D50.9 ; Depression, unspecified depression type F32.9 and Rheumatoid arthritis with positive rheumatoid factor, involving unspecified site M05.9 [facility] [address] [address]- 0380 Mar, [facility] [address] [address]- 5607 Mar, [facility] [id number] [place] [address] 42692- 6774 Feb, Chronic pain syndrome G89.4 [facility] [id number] [place] [address] 33963- 0176 30 Feb, 2016 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 ; Status post CVA Z86.73 ; Hemiplegia G81.90 and Anemia, unspecified type D64.9 [facility] [id number] [place] [address] 23706- 4179 Feb, [facility] [id number] [place] [address] 34531- 2026 Feb, Anemia, unspecified type D64.9 [facility] [id number] [place] [address] 64706- 6628 Feb, [facility] [id number] [place] [address] 41528- 7093 Feb, Iron deficiency anemia, unspecified iron deficiency anemia type D50.9 [facility] [id number] [place] [address] 72559- 7470 Feb, [facility] [id number] [place] [address] 82719- 6998 Feb, Chronic bronchitis, unspecified chronic bronchitis type J42 [facility] [id number] [place] [address] 99751- 3010 Feb, Iron deficiency anemia, unspecified iron deficiency anemia type D50.9 [facility] [id number] [place] [address] 44699- 8028 Feb, Chronic pain syndrome G89.4 [facility] [id number] [place] [address] 82213- 4756 Feb, Anemia, unspecified type D64.9 and Hypoxia R09.02 [facility] [id number] [place] [address] 72902- 5681 Feb, Anemia, unspecified type D64.9 [facility] [address] [address]- 7600 Jan, [facility] [id number] [place] [address] 12416- 5541 Jan, Anemia, unspecified type D64.9 [facility] [address] [address]- 9227 Jan, [facility] [id number] [place] [address] 37795- 0066 Jan, Anemia, unspecified type D64.9 [facility] [id number] [place] [address] 49156- 9770 Jan, Anemia, unspecified type D64.9 [facility] [id number] [place] [address] 10896- 1042 Jan, [facility] [id number] [place] [address] 33353- 8136 Jan, Anemia, unspecified type D64.9 [facility] [address] [address]- 2758 Jan, [facility] [id number] [place] [address] 51445- 3989 Jan, [facility] [address] [address]- 6178 Jan, Chronic pain syndrome G89.4 [facility] [id number] [place] [address] 53412- 7042 Jan, Anemia, unspecified type D64.9 [facility] [address] [address]- 1513 Jan, Dysthymia F34.1 ; Cervicalgia M54.2 ; Fatigue, unspecified type R53.83 and Depression, unspecified depression type F32.9 [facility] [address] [address]- 0116 Dec, [place] [id number] [place] [address] 59258- 2212 14 Dec, 2015 Anxiety F41.9 [facility] [address] 05312- 2641 08 Dec, 2015 Chronic pain syndrome G89.4 [facility] [address] 27496- 2203 November, [facility] [address] 82566- 6833 November, Edema R60.9 and Dizziness R42 [place] [facility] [address] 99958- 0048 November, [facility] [address] 04399- 3576 November, [facility] [address] 74987- 9901 November, COPD (chronic obstructive pulmonary disease) J44.9 ; Increased tracheal secretions J39.8 and Edema R60.9 [facility]note 3] [address] [address] Oct, [facility]note 3] [address] 17336 -6224 Oct, Shortness of breath R06.02 and Edema R60.9 [facility] [id number] [place] [address] 23476- 4942 Oct, Chronic bronchitis, unspecified chronic bronchitis type J42 ; Peripheral vascular disease, unspecified I73.9 ; Rheumatoid arthritis M06.9 and Atrial fibrillation I48.91 [facility] [address] 42585- 0774 Oct, [facility] [id number] [place] [address] 12818- 6150 Oct, [facility] [address] 85058- 8625 Oct, [facility] [address] [address]- 9887 Oct, [facility] [id number] [address] Oct, COPD exacerbation J44.1 [facility] [id number] [address] Sep, [facility] [id number] [place] [address]16- 1033 Sep, [facility] [id number] [place] [address]35- 9693 Sep, [facility] [id number] [place] [address]5839- 7312 Aug, [facility] [id number] [place] [address]227- 4324 Aug, 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 and PVD (peripheral vascular disease ) I73.9 [facility] [id number] [place] [address]3636- 7887 Aug, Bronchitis J40 ; COPD (chronic obstructive pulmonary disease ) J44.9 and Dysthymia F34.1 [facility] [id number] [address] Aug, [facility] [id number] [place] [address] 26387- 9811 Jul, [facility] [id number] [address] Jul, [facility] [id number] [place] [address] 20922- 5550 Jul, [facility] [id number] [address] Jun, [facility] [id number] [place] [address] 11264- 1141 Jun, [facility] [id number] [address] Jun, Peripheral vascular disease I73.9 [facility] [id number] [address] Jun, [facility] [id number] [address] Jun, [facility] [id number] [place] [address] 913934- 1717 Jun, Leg pain, left M79.605 ; Dysphagia, unspecified dysphagia R13.10 ; Insomnia, unspecified type G47.00 ; PVD (peripheral vascular disease) I73.9 and 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 [facility] [id number] [address] May, [facility] [id number] [place] [address] 39874- 7748 May, [facility] [id number] [address] May, [facility] [id number] [address] 9096 May, [facility] [id number] [address] May, [facility] [id number] [id number] Apr, [facility] [id number] [address] Apr, [facility] [id number] [place] [address] 10304- 3149 Mar, [facility] [id number] [address] 60[address] Mar, [facility] [address] [id number] [address] Feb, [facility] [id number] [address] Feb, Nicotine abuse 305.1 ; Arthralgia 719.40 and 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 [facility] [id number] [address] Feb, [facility] [id number] [address] 44[address] Jan, [facility] [id number] [address] 9[address] Jan, [facility] [id number] [address] 20[address] Jan, [facility] [id number] [address] 8[address] Jan, [facility] [id number] [address] 9[address] Jan, 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 ; Rheumatoid arthritis 714.0 ; Hypertension 401.9 ; GERD (gastroesophageal reflux disease) 530.81 ; Nicotine addiction 305.1 and Leukocytosis 288.60 [facility] [id number] [address] Jan, [facility] [id number] [address] Jan, [facility] [id number] [address] 38[address] Jan, [facility] [id number] [address] 15[address] Jan, [facility] [id number] [address] 9[address] Jan, [facility] [address] [id number] [address] 4[address] Dec, [facility] [id number] [address] 0636 Dec, [facility] [id number] [place] [address]- 5170 Dec, [facility] [id number] [address] 5[address] Dec, [facility] [id number] [place] [address] 1537 November, [facility] [id number] [place] [address]- 6882 November, [facility] [id number] [place] [address]- 1120 November, Shortness of breath 786.05 [facility] [id number] [place] [address]- 9640 November, Rheumatoid arthritis 714.0 [facility] [id number] [place] [address]- 2185 November, 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 [facility] [id number] [place] [address] 976774- 5989 November, Neuropathy 355.9 ; Insomnia 780.52 ; Dysthymia 300.4 ; Shortness of breath 786.05 ; Rheumatoid arthritis 714.0 and Nausea 787.02 [facility] [id number] [address]- 1756 November, [facility] [id number] [address]- 6089 November, [facility] [id number] [place] [address]- 0623 Oct, [facility] [id number] [address] 1126 Oct, [facility] [id number] [place] [address]- 6254 Oct, [facility] [place] [facility] [address] [id number] [place] [address]- 5042 Oct, [facility] [place] [facility] [address] [id number] [place] [address]- 7019 Sep, [facility] [place] [facility] [address] [id number] [place] [address]- 5238 Sep, [facility] [place] [facility] [address] [id number] [place] [address]- 5307 Sep, [facility] [place] [facility] [address] [id number] [place] [address]- 2248 Sep, [facility] [place] [facility] [address] [id number] [place] [address]- 9561 Sep, [facility] [place] [facility] [address] [id number] [place] [address]- 7600 Sep, [facility] [place] [facility] [address] [id number] [place] [address]- 7899 Sep, [facility] [place] [facility] [address] [id number] [place] [address]- 9415 Sep, [facility] [place] [facility] [address] [id number] [place] [address]- 3273 Aug, [facility] [place] [facility] [address] [id number] [place] [address]- 9678 Aug, 2014 [facility] [place] [facility] [address] [id number] [address]- 6105 Aug, 2014 [facility] [place] [facility] [address] [id number] [place] [address]- 3417 Aug, 2014 [facility] [place] [facility] [address] [id number] [place] [address]- 7101 Aug, [facility] [place] [facility] [address] [id number] [place] [address]- 6409 Aug, 2014 [facility] [place] [facility] [address] [id number] [place] [address]- 3327 Jul, [facility] [address] [id number] [place] [address]- 8659 Jul, [facility] [place] [facility] [address] [id number] [place] [address]- 0626 Jul, [facility] [address] [id number] [place] [address]- 9173 Jul, [facility] [address] [id number] [place] [address]- 4051 Jul, [facility] [address] [id number] [place] [address]- 6455 Jul, [facility] [address] [id number] [place] [address]- 5536 Jul, [facility] [address] [id number] [place] [address]- 9051 Jul, [facility] [address] [id number] [place] [address]- 1291 Jul, [facility] [address] [id number] [place] [address]- 4581 Jul, [facility] [address] [id number] [place] [address]- 6997 Jun, [facility] [place] [facility] [address] [id number] [place] [address]- 8097 Jun, [facility] [place] [facility] [address] [id number] [place] [address]- 5597 Jun, [facility] [place] [facility] [address] [id number] [place] [address]- 6079 Jun, [facility] [place] [facility] [address] [id number] [place] [address]- 3124 Jun, [facility] [place] [facility] [address] [id number] [place] [address]99 Jun, [facility] [place] [facility] [address] [id number] [place] [address]- 7962 Jun, [facility] [place] [facility] [address] [id number] [place] [address]- 6025 Jun, [facility] [place] [facility] [address] [id number] [place] [address]- 8672 Jun, [facility] [place] [facility] [address] [id number] [place] [address]- 9677 Jun, [facility] [place] [facility] [address] [id number] [place] [address]- 8260 Jun, [facility] [place] [facility] [address] [id number] [place] [address]- 5177 Jun, [facility] [place] [facility] [address] [id number] [place] [address]- 3317 Jun, [facility] [place] [facility] [address] [id number] [place] [address]- 9147 Jun, [facility] [place] [facility] [address] [id number] [place] [address]- 4599 Jun, [facility] [place] [facility] [address] [id number] [place] [address]- 4920 Jun, [facility] [place] [facility] [address] [id number] [place] [address]- 9196 May, [facility] [place] [facility] [address] [id number] [place] [address]- 1237 May, [facility] [place] [facility] [address] [id number] [place] [address]- 4054 May, [facility] [place] [facility] [address] [id number] [place] [address]- 2424 May, [facility] [place] [facility] [address] [id number] [place] [address]- 2199 May, [facility] [place] [facility] [address] [id number] [place] [address]- 2560 May, [facility] [place] [facility] [address] [id number] [place] [address]- 5571 May, [facility] [place] [facility] [address] [id number] [place] [address]- 6368 May, [facility] [place] [facility] [address] [facility] [id number] [place] [address]- 1264 May, [facility] [place] [facility] [address] [id number] [place] [address]- 1796 Apr, [facility] [place] [facility] [address] [id number] [place] [address]- 6947 Apr, [facility] [place] [facility] [address] [id number] [place] [address]- 5930 Apr, [facility] [place] [facility] [address] [facility] [id number] [place] [address]- 6190 Apr, [facility] [place] [facility] [address] [id number] [place] [address]- 3873 Apr, [facility] [place] [facility] [address] [facility] [id number] [place] [address]- 0062 Apr, [facility] [place] [facility] [address] [facility] [id number] [place] [address]- 5412 Apr, [facility] [place] [facility] [address] [id number] [place] [address]- 0291 Apr, [facility] [place] [facility] [address] [id number] [place] [address]- 2406 Apr, [facility] [place] [facility] [address] [id number] [place] [address]- 6711 Apr, [facility] [place] [facility] [address] [facility] [id number] [place] [address]- 0632 Apr, [facility] [place] [facility] [address] [facility] [id number] [place] [address]- 5421 Apr, [facility] [place] [facility] [address] [id number] [place] [address]- 2374 22 Mar, 2013 [facility] [place] [facility] [address] [id number] [place] [address]- 4486 22 Mar, 2013 [facility] [place] [facility] [address] [id number] [place] [address] 2546 Mar, 2013 [facility] [place] [facility] [address] [id number] [place] [address] 2546 Mar, 2013 [facility] [place] [facility] [address] [id number] [place] [address] 2542 Mar, 2013 [facility] [place] [facility] [address] [id number] [place] [address]- 5526 Mar, 2013 [facility] [place] [facility] [address] [id number] [place] [address]- 1699 Mar, 2013 [facility] [place] [facility] [address] [id number] [place] [address]- 9979 Mar, 2013 [facility] [place] [facility] [address] [id number] [place] [address]- 7281 Mar, 2013 [facility] [place] [facility] [address] [id number] [place] [address]- 254 Mar, 2013 [facility] [place] [facility] [address] [id number] [place] [address]- 2750 Feb, [facility] [place] [facility] [address] [id number] [place] [address]- 1654 Feb, [facility] [place] [facility] [address] [id number] [place] [address]- 2545 Feb, [facility] [place] [facility] [address] [id number] [place] [address]- 2546 Feb, [facility] [place] [facility] [address] [id number] [place] [address]- 2542 Feb, [facility] [place] [facility] [address] [id number] [place] [address]- 9743 Feb, [facility] [place] [facility] [address] [id number] [place] [address]- 3205 Feb, [facility] [place] [facility] [address] [id number] [place] [address]- 7229 Feb, [facility] [place] [facility] [address] [id number] [place] [address]- 3685 Feb, [facility] [place] [facility] [address] [id number] [place] [address]- 4025 Feb, [facility] [place] [facility] [address] [id number] [place] [address]- 4972 Feb, [facility] [place] [facility] [address] [id number] [place] [address]- 4162 Feb, [facility] [place] [facility] [address] [id number] [place] [address]- 7894 Feb, [facility] [place] [facility] [address] [id number] [place] [address]- 1954 Feb, [facility] [place] [facility] [address] [id number] [place] [address]- 9754 Feb, [facility] [place] [facility] [address] [id number] [place] [address]- 8890 Feb, [facility] [place] [facility] [address] [id number] [place] [address]- 0322 Jan, [facility] [place] [facility] [address] [id number] [place] [address]- 1140 Jan, [facility] [place] [facility] [address] [id number] [place] [address]- 6988 Jan, [facility] [place] [facility] [address] [id number] [place] [address]- 1518 Jan, [facility] [place] [facility] [address] [id number] [place] [address]- 9185 Jan, [facility] [place] [facility] [address] [id number] [place] [address]- 6527 Jan, [facility] [place] [facility] [address] [id number] [place] [address]- 5065 Dec, [facility] [place] [facility] [address] [id number] [place] [address]- 2202 Dec, [facility] [place] [facility] [address] [id number] [place] [address]- 6387 Dec, [facility] [place] [facility] [address] [id number] [place] [address]- 9434 Dec, [facility] [place] [facility] [address] [id number] [place] [address]- 8218 Dec, [facility] [place] [facility] [address] [id number] [place] [address]- 8053 Dec, [facility] [place] [facility] [address] [id number] [place] [address]- 1855 Dec, [facility] [place] [facility] [address] [id number] [place] [address]- 0669 Dec, [facility] [place] [facility] [address] [id number] [place] [address]- 9139 November, [facility] [place] [facility] [address] [id number] [place] [address]- 0315 November, [facility] [place] [facility] [address] [id number] [place] [address]- 2208 November, [facility] [place] [facility] [address] [id number] [place] [address]- 4537 November, [facility] [place] [facility] [address] [id number] [place] [address]- 9012 November, [facility] [place] [facility] [address] [id number] [place] [address]- 3310 November, [facility] [place] [facility] [address] [id number] [place] [address]- 7341 Oct, [facility] [place] [facility] [address] [id number] [place] [address]- 1483 Oct, [facility] [place] [facility] [address] [id number] [place] [address]- 7369 Oct, [facility] [place] [facility] [address] [id number] [place] [address]- 3047 Oct, [facility] [place] [facility] [address] [id number] [place] [address]- 4896 Sep, [facility] [place] [facility] [address] [id number] [place] [address]- 5030 Sep, [facility] [place] [facility] [address] [id number] [place] [address]- 8480 Sep, [facility] [place] [facility] [address] [id number] [place] [address]- 0107 Sep, [facility] [place] [facility] [address] [id number] [place] [address]- 1742 Sep, [facility] [place] [facility] [address] [id number] [place] [address]- 3425 Sep, [facility] [place] [facility] [address] [id number] [place] [address]- 1501 Aug, [facility] [place] [facility] [address] [id number] [place] [address]- 3272 Aug, [facility] [place] [facility] [address] [id number] [place] [address]- 6878 Aug, [facility] [place] [facility] [address] [id number] [place] [address]- 8744 Aug, [facility] [place] [facility] [address] [id number] [place] [address]- 2535 Aug, [facility] [place] [facility] [address] [id number] [place] [address]- 6617 Aug, [facility] [place] [facility] [address] [id number] [place] [address]- 5340 Jul, [facility] [address] [id number] [place] [address]- 8438 Jul, [facility] [place] [facility] [address] [id number] [place] [address]- 3147 Jul, [facility] [place] [facility] [address] [id number] [place] [address]- 3087 Jul, [facility] [place] [facility] [address] [id number] [place] [address]- 6033 Jul, [facility] [place] [facility] [address] [id number] [place] [address]- 3998 Jul, [facility] [place] [facility] [address] [id number] [place] [address]- 4465 Jul, [facility] [place] [facility] [address] [id number] [place] [address]- 5301 Jul, [facility] [place] [facility] [address] [id number] [place] [address]- 3914 Jul, [facility] [place] [facility] [address] [id number] [place] [address]- 2296 Jul, [facility] [place] [facility] [address] [id number] [place] [address]- 6349 Jul, [facility] [place] [facility] [address] [id number] [place] [address]- 6348 Jul, [facility] [place] [facility] [address] [id number] [place] [address]- 4415 Jul, [facility] [place] [facility] [address] [id number] [place] [address]- 0409 Jul, [facility] [place] [facility] [address] [id number] [place] [address]- 2968 Jul, [facility] [place] [facility] [address] [id number] [place] [address]- 9021 Jun, [facility] [place] [facility] [address] [id number] [place] [address]- 0975 18 Jun, 2013 [facility] [address] [id number] [place] [address]- 8586 Jun, [facility] [place] [facility] [address] [id number] [place] [address]- 2460 Jun, [facility] [place] [facility] [address] [id number] [place] [address]- 7442 May, [facility] [place] [facility] [address] [id number] [place] [address]- 4249 May, [facility] [address] [id number] [place] [id number] May, [facility] [address] [id number] [place] [address]- 1050 May, [facility] [place] [facility] [address] [id number] [place] [address]- 9637 May, [facility] [address] [id number] [place] [address]- 4119 May, [facility] [address] [id number] [place] [address]- 9010 May, [facility] [address] [id number] [place] [address]- 0268 May, [facility] [place] [facility] [address] [id number] [place] [address]- 2715 16 May, 2013 [facility] [address] [id number] [id number] May, [facility] [place] [facility] [address] [id number] [place] [address]- 6647 May, [facility] [address] [id number] [place] [id number] May, [facility] [place] [facility] [address] [id number] [place] [address]- 7000 May, [facility] [address] [facility] [id number] [place] [id number] May, [facility] [address] [facility] [id number] [place] [address]27 May, IMMUNIZATIONS No Known Immunizations SOCIAL HISTORY Never Assessed REASON FOR VISIT Refill request PLAN OF CARE VITAL SIGNS MEDICATIONS Unknown [...] leukocytosis--[facility] 01/08/16 Hospitalization History pseudomemranous colitis, sepsis--[facility] 04/21/2016 Hospitalization History C Diff--[facility] 05/10/2016 Hospitalization History sepsis, pneumonia, diarrhea--[facility] 06/11/16 Hospitalization History recurrent cdiff, pneumonia-[facility] 07/22/16 Hospitalization History sepsis,pneumonia- [facility]
--- OUTSIDE RECORDS SUMMARY | 2018-03-18 20:16 | XMS REPORT ---
Author Author DAPHNE YUSUF Organization [facility] Address [address] [place] [address] Care Team Providers Care Internet Marketing Analyst Name Role Phone DAPHNE YUSUF Unavailable PROBLEMS Type Condition ICD9-CM Code UCS19-OW Code Onset Dates Condition Status SNOMED Code Problem Hx of Clostridium difficile infection Z86.19 Active 118482583 Problem History of arthroplasty of right knee Z96.651 Active 312011238 Problem Dysphagia, unspecified dysphagia R13.10 Active 41906942 Problem Chronic pain syndrome G89.4 Active 925815113 Problem 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 795598896 Problem Anxiety F41.9 Active 62793168 Problem Leg pain, left M79.605 Active 256567981 Problem Depression, unspecified depression type F32.9 Active 63649817 Problem Iron deficiency anemia, unspecified iron deficiency anemia type D50.9 Active 99688552 Problem Anemia, unspecified type D64.9 Active 368899082 Problem Seasonal allergic rhinitis due to pollen J30.1 Active 63538483 Problem Insomnia, unspecified G47.00 Active 145682544 Problem 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 780999236 Problem History of cerebrovascular accident with current residual effects I69.90 Active 864699372 Problem Peripheral vascular disease, unspecified I73.9 Active 161712443 Problem Rheumatoid arthritis, involving unspecified site, unspecified rheumatoid factor presence M06.9 Active 43365051 Problem Other chronic pain G89.29 Active 41659357 Problem Primary insomnia F51.01 Active 2052340 Problem Chronic obstructive pulmon disease w acute lower resp infct J44.0 Active 116086003 Problem Atrial fibrillation I48.91 Active 15590921 Problem Dysthymia F34.1 Active 12976229 Problem Osteoarthritis of foot M19.079 Active 956106720 Problem Rheumatoid arthritis M06.9 Active 14791133 Problem Tobacco abuse, 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 466281351 Problem Edema R60.9 Active 833660236 Problem COPD (chronic obstructive pulmonary disease) J44.9 Active 95743770 Problem Hypertension I10 Active 66835521 ALLERGIES No Information ENCOUNTERS Encounter Location Date Diagnosis [place] [address] [address] Oct, Chronic pain syndrome G89.4 [place] [address] 5[address]- [address] Oct, [place] [address] 36095- 7809 Oct, Chronic pain syndrome G89.4 [place] [address] 77171- 7780 Oct, [place] [address] 44[address]- 3636 Oct, [place] [address] 15059- 9050 Sep, Left upper quadrant pain R10.12 ; Chronic pain syndrome G89.4 ; Left lower quadrant pain R10.32 ; Other chronic pain G89.29 ; Sacrococcygeal disorders, not elsewhere classified M53.3 and Seasonal allergic rhinitis due to pollen J30.1 [place] [address] [place] [id number] [place] [address] 31494- 9611 Sep, Chronic pain syndrome G89.4 [place] [address] [place] [id number] [place] [address] 46836- 1120 Sep, [place] [address] [place] [id number] [place] [address] 31909- 2739 Aug, Chronic pain syndrome G89.4 [place] [address] 7[address]72- 1510 Aug, [place] [address] 94165- 8285 Aug, Insomnia, unspecified G47.00 [place] [address] [address] Jul, [facility] [id number] [place] [address] 20528- 3202 Jul, [facility] [address] [address] 3644 Jul, Chronic pain syndrome G89.4 [facility] [address] [place] [id number] [place] [address] 27850- 9961 Jun, Chronic pain syndrome G89.4 [place] [address] [place] [id number] [place] [address] 98237- 4915 Jun, Chronic pain syndrome G89.4 [place] [address] [place] [id number] [place] [address] 41368- 7808 May, [place] [address] [place] [id number] [place] [address] 45925- 5424 May, Shortness of breath R06.02 ; Peripheral vascular disease, unspecified I73.9 ; Pain in right knee M25.561 ; Other chronic pain G89.29 ; Chest wall pain R07.89 ; Chronic pain syndrome G89.4 ; Primary insomnia F51.01 and Ear pain, left H92.02 [place] [id number] [place] [address] 68454- 6417 May, Anxiety F41.9 [place] [address] [place] [id number] [place] [address] 28278- 1651 Apr, Pneumonia due to infectious organism, unspecified laterality , unspecified part of lung J18.9 ; Hypoxia R09.02 ; Bradycardia R00.1 ; History of Clostridium difficile Z87.19 and Primary insomnia F51.01 [place] [address] [address]- 8701 Apr, Anxiety F41.9 [place] [id number] [place] [address] 58286- 9156 Apr, [place] [address] [place] [id number] [place] [address] 52287- 8816 Mar, Anxiety F41.9 [facility] [address] 14608- 4906 Feb, [facility] [address] [place] [id number] [place] [address] 99191- 8800 Feb, [facility] [address] 20207- 7619 Feb, Abnormal finding on urinalysis R82.90 [place] [address] [place] [id number] [place] [address] 88129- 1628 Feb, [place] [address] 03063- 0594 Feb, Shortness of breath R06.02 ; Tachycardia R00.0 ; Cough R05 ; Ill feeling R68.89 and Abnormal finding on urinalysis R82.90 [facility] [address] [place] [id number] [place] [address] 56594- 0285 Feb, Anxiety F41.9 [facility] [address] [place] [id number] [place] [address] 52807 -3955 Feb, Sore throat J02.9 and Acute diffuse otitis externa of left ear H60.312 [place] [address] [place] [id number] [place] [address] 16281- 2344 Jan, [facility] [address] [place] [id number] [place] [address] 17443- 2132 Jan, [facility] [address] [id number] Jan, [place] [address] [place] [id number] [place] [address] 93256- 8670 Jan, Depression, unspecified depression type F32.9 ; Chronic bronchitis, unspecified chronic bronchitis type J42 ; Chronic pain syndrome G89.4 and Anxiety F41.9 [facility] [address] [place] [address] 7132 14 Jan, 2017 [facility] [id number] [place] [address] 51419- 2205 Jan, [facility] [id number] [place] [address] 83646- 1778 10 Jan, 2017 [facility] [address] [place] [id number] [place] [address] [id number] Jan, Chronic pain syndrome G89.4 [facility] [address] [place] [id number] Dec, History of right knee surgery Z98.890 [facility] [address] [place] [id number] [place] [address] 66380- 2316 Dec, [facility] [id number] [place] [address] 49554- 9111 Dec, Chronic pain syndrome G89.4 [facility] [id number] [place] [address] 63608- 8146 November, Anxiety F41.9 [facility] [id number] [place] [address] 59503 -1199 November, Acute cystitis without hematuria N30.00 [facility] [id number] [place] [address] 50614 -0270 November, Fever, unspecified fever cause R50.9 and Acute cystitis without hematuria N30.00 [facility] [address] [address]- 5310 November, Chronic pain syndrome G89.4 [facility] [id number] [place] [address] 93881- 3800 Oct, Anxiety F41.9 [facility] [id number] [place] [address] 49069- 8172 Oct, Chronic pain syndrome G89.4 [facility] [id number] [place] [address] 06332- 7114 Oct, Chronic pain syndrome G89.4 [facility] [address] [address]- 7193 Oct, [place] [id number] [place] [address] 61387- 2412 Oct, Chronic pain syndrome G89.4 ; Pain in right knee M25.561 ; History of Clostridium difficile Z87.19 ; Iron deficiency anemia, unspecified iron deficiency anemia type D50.9 ; Peripheral vascular disease, unspecified I73.9 and Atrial fibrillation I48.91 [place] [id number] [place] [address] 86691- 8125 Oct, [place] [address] [place] [id number] [place] [address] 92193- 7224 Oct, Chronic pain syndrome G89.4 [place] [id number] [place] [address] 02223- 8118 Sep, [place] [id number] [place] [address] 23766- 7766 Sep, Depression, unspecified depression type F32.9 ; Chronic bronchitis, unspecified chronic bronchitis type J42 ; Chronic pain syndrome G89.4 and Anxiety F41.9 [employer] [facility] [address] [place] [id number] Sep, History of Clostridium difficile infection Z86.19 and History of stroke Z86.73 [place] [address] [place] [id number] [place] [address] [id number] Sep, Anxiety F41.9 [place] [address] [place] [id number] [place] [address] 99863- 0944 Sep, Chronic pain syndrome G89.4 [place] [id number] [place] [address] 60524- 8640 Sep, [place] [address] [place] [id number] [place] [address] [id number] Sep, [place] [id number] [place] [address] 00795- 4085 Aug, Anxiety F41.9 [facility] [id number] [place] [address] 59217- 4048 Aug, Anxiety F41.9 [facility] [id number] [place] [address] 79806- 5237 16 Aug, 2016 [facility] [address] [place] [id number] [place] [address] 03414- 1527 14 Aug, 2016 Acute knee pain, unspecified laterality M25.569 [facility] [id number] [place] [address] 96957- 9719 Aug, [facility] [address] [place] [id number] [place] [address] 90906- 0752 Aug, Chronic pain syndrome G89.4 [facility] [address] [place] [id number] [place] [address] 16407- 2254 Aug, [facility] [address] [place] [id number] [place] [address] 57599- 0224 Aug, [facility] [id number] [place] [address] 55818- 1533 Jul, [facility] [id number] [place] [address] 53039- 4909 Jul, Anxiety F41.9 [facility] [id number] [place] [address] 25997- 7201 Jul, Clostridium difficile diarrhea A04.7 [employer] [address] [id number] Jul, Clostridium difficile diarrhea A04.7 ; Chronic pain syndrome G89.4 ; Chronic obstructive pulmon disease w acute lower resp infct J44.0 and Pain in right knee M25.561 [facility] [address] [place] [id number] [place] [address] [id number] Jul, [facility] [id number] [place] [address] 81335 -9955 Jul, Anxiety F41.9 and Chronic pain syndrome G89.4 [facility] [address] [facility] [id number] [address]- 8066 Jun, Anxiety F41.9 [facility] [address] [facility] [id number] [address]- 7909 Jun, Rheumatoid arthritis 714.0 [facility] [id number] [place] [address] 84389- 0476 Jun, Chronic pain syndrome G89.4 [facility] [address] [address]- 9535 Jun, [facility] [id number] [place] [address] 66446- 5562 Jun, [facility] [id number] [place] [address] 45076- 9670 Jun, History of pneumonia Z87.01 and History of Clostridium difficile Z87.19 [facility] [address] [address]- 9788 Jun, [facility] [id number] [place] [address] 79105- 6842 May, [facility] [address] [address]- 6626 May, Anxiety F41.9 [facility] [address] [address]- 2927 May, Chronic pain syndrome G89.4 [facility] [address] [address]- 0257 15 May, 2016 Chronic bronchitis, unspecified chronic bronchitis type J42 [facility] [address] [address]- 2101 May, [facility] [address] [address]- 5702 May, C. difficile diarrhea A04.7 ; Peripheral edema R60.9 ; COPD (chronic obstructive pulmonary disease) J44.9 ; Rheumatoid arthritis, involving unspecified site, unspecified rheumatoid factor presence M06.9 ; Pain in right knee M25.561 ; Pain in left knee M25.562 and Other chronic pain G89.29 [facility] [address] [place] [id number] [place] [address] 07822 2546 May, [facility] [address] [address] 2546 May, [facility] [address] [place] [id number] [place] [address] 00763 2546 May, Anxiety F41.9 [facility] [address] 02697- 1656 Apr, [facility] [address] [place] [id number] [place] [address] 91147- 4774 Apr, Chronic pain syndrome G89.4 [facility] [address] [place] [id number] [place] [address] 36161 2546 Apr, Leg pain, left M79.605 [facility] [address] [place] [id number] [place] [address] 48121- 3706 Apr, [facility] [address] [place] [id number] [place] [address] 51818 2546 Apr, [facility] [address] [place] [id number] [place] [address] 54003- 6185 Apr, [facility] [address] [place] [id number] [place] [address] 99250 2542 Mar, Chronic pain syndrome G89.4 [facility] [address] [place] [id number] [place] [address] 18774 2546 Mar, Acute frontal sinusitis, recurrence not specified J01.10 [facility] [address] [place] [id number] [place] [address] 37692- 2546 Mar, Iron deficiency anemia, unspecified iron deficiency anemia type D50.9 ; Rheumatoid arthritis with positive rheumatoid factor, involving unspecified site M05.9 and Depression, unspecified depression type F32.9 [place] [address] [place] [id number] [place] [address] 83754- 7849 Mar, Iron deficiency anemia, unspecified iron deficiency anemia type D50.9 ; Depression, unspecified depression type F32.9 and Rheumatoid arthritis with positive rheumatoid factor, involving unspecified site M05.9 [place] [address] [place] [id number] [place] [address] 21363- 3678 Mar, [place] [address] [place] [id number] [place] [address] 25667- 1671 Mar, [place] [address] [place] [id number] [place] [address] 97058- 1060 Feb, Chronic pain syndrome G89.4 [place] [address] [place] [id number] [place] [address] 51423- 8753 Feb, 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 ; Status post CVA Z86.73 ; Hemiplegia G81.90 and Anemia, unspecified type D64.9 [place] [address] [place] [id number] [place] [address] 47405- 9560 Feb, [place] [address] [place] [id number] [place] [address] 62910- 6275 Feb, Anemia, unspecified type D64.9 [place] [address] [place] [id number] [place] [address] 71451- 7548 Feb, [place] [address] [place] [id number] [place] [address] 67838- 2288 Feb, Iron deficiency anemia, unspecified iron deficiency anemia type D50.9 [place] [address] [place] [id number] [place] [address] 76507- 1032 Feb, [place] [address] [place] [id number] [place] [address] 60735- 6653 Feb, Chronic bronchitis, unspecified chronic bronchitis type J42 [place] [address] [address]- 4814 Feb, Iron deficiency anemia, unspecified iron deficiency anemia type D50.9 [facility] [address] [place] [address]- 5276 Feb, Chronic pain syndrome G89.4 [facility] [address] [place] [address]- 0656 Feb, Anemia, unspecified type D64.9 and Hypoxia R09.02 [facility] [address] [address]- 4780 Feb, Anemia, unspecified type D64.9 [facility] [address] [place] [address]- 3546 Jan, [facility] [address] [address]- 9012 Jan, Anemia, unspecified type D64.9 [facility] [address] [place] [address]- 5746 Jan, [facility] [address] [place] [address]- 1594 Jan, Anemia, unspecified type D64.9 [facility] [address] [place] [address]- 7872 Jan, Anemia, unspecified type D64.9 [facility] [address] [address]- 4626 Jan, [facility] [address] [place] [id number] [address]- 2549 Jan, Anemia, unspecified type D64.9 [facility] [address] [place] [address]- 2543 Jan, [facility] [address] [address]- 254 Jan, [facility] [address] [place] [id number] [place] [address] 10598- 0134 Jan, Chronic pain syndrome G89.4 [facility] [address] [place] [id number] [place] [address] 22170- 2473 Jan, Anemia, unspecified type D64.9 [facility] [address] [place] [id number] [place] [address] 15577- 7437 Jan, Dysthymia F34.1 ; Cervicalgia M54.2 ; Fatigue, unspecified type R53.83 and Depression, unspecified depression type F32.9 [facility] [address] [place] [id number] [place] [address] 20509- 0823 Dec, [place] [address] [place] [id number] [place] [address] 73873- 5006 Dec, Anxiety F41.9 [place] [address] [place] [id number] [place] [address] 52336- 4368 Dec, Chronic pain syndrome G89.4 [facility] [address] [place] [id number] [place] [address] 52299- 0321 November, [facility] [address] [place] [id number] [place] [address] 80893- 1602 November, Edema R60.9 and Dizziness R42 [facility] [address] [place] [id number] [place] [address] 10871- 0172 November, [facility] [address] [place] [id number] [place] [address] 62121- 8328 November, [facility] [address] [place] [id number] [place] [address] 36836- 0786 November, COPD (chronic obstructive pulmonary disease) J44.9 ; Increased tracheal secretions J39.8 and Edema R60.9 [facility] [id number] [place] [address] 13019 -5980 Oct, [facility] [address] [place] [id number] [place] [address] 73932 -5767 28 Oct, 2015 Shortness of breath R06.02 and Edema R60.9 [facility] [address] [place] [id number] [place] [address] 23209- 9578 20 Oct, 2015 Chronic bronchitis, unspecified chronic bronchitis type J42 ; Peripheral vascular disease, unspecified I73.9 ; Rheumatoid arthritis M06.9 and Atrial fibrillation I48.91 [facility] [address] [place] [id number] [place] [address] 96408- 0759 Oct, [facility] [address] [place] [id number] [place] [address] 97092- 4889 Oct, [facility] [address] [place] [id number] [place] [address] 71083- 5697 Oct, [facility] [address] [place] [id number] [place] [address] 13990- 9693 Oct, [facility] [address] [place] [id number] [place] [address] 13964 -9035 Oct, COPD exacerbation J44.1 [facility] [address] [place] [id number] [place] [address] 76481- 7054 Sep, [facility] [address] [place] [id number] [place] [address] 29451- 3312 Sep, [facility] [address] [place] [id number] [place] [address] 08068- 0210 Sep, [facility] [address] [place] [id number] [place] [address] 32400- 6679 Aug, [facility] [id number] [place] [address] 43771- 4032 Aug, 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 and PVD (peripheral vascular disease ) I73.9 [facility] [address] [place] [id number] [place] [address] 47887- 4039 16 Aug, 2015 Bronchitis J40 ; COPD (chronic obstructive pulmonary disease ) J44.9 and Dysthymia F34.1 [facility] [address] [address]- 9658 Aug, [facility] [address] [address]- 2472 Jul, [facility] [address] [address]- 8854 Jul, [facility] [id number] [place] [address] 262480- 8247 Jul, [facility] [address] [address]- 3274 Jun, [facility] [address] [place] [id number] [place] [address] 147095- 1219 Jun, [facility] [address] [place] [id number] [place] [address] 87168- 6875 Jun, Peripheral vascular disease I73.9 [facility] [address] [place] [id number] [place] [address] 42204- 5693 Jun, [facility] [address] [address]- 3239 Jun, [facility] [address] [address] Jun, Leg pain, left M79.605 ; Dysphagia, unspecified dysphagia R13.10 ; Insomnia, unspecified type G47.00 ; PVD (peripheral vascular disease) I73.9 and 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 [facility] [id number] [address] May, [facility] [id number] May, [facility] [id number] [address] May, [facility] [id number] [address] May, [facility] [id number] [address] May, [facility] [id number] [address] Apr, [facility] [id number] [address] Apr, [facility] [id number] [address] Mar, [facility] [id number] [address] Mar, [facility] [id number] [address] Feb, [facility] [id number] [address] Feb, Nicotine abuse 305.1 ; Arthralgia 719.40 and 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 [facility] [id number] [address] Feb, [facility] [id number] [address] Jan, [facility] [id number] [address] Jan, [facility] [id number] [address] Jan, [facility] [id number] [address] Jan, [facility] [id number] [address] Jan, 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 ; Rheumatoid arthritis 714.0 ; Hypertension 401.9 ; GERD (gastroesophageal reflux disease) 530.81 ; Nicotine addiction 305.1 and Leukocytosis 288.60 [facility] [address]00565[address] [address] Jan, 2014 [facility] [address]00565[address] [address] Jan, 2014 [facility] [id number] [place] [address] 01980- 8021 Jan, 2014 [facility] [id number] [place] [address] 36261- 2321 Jan, 2014 [facility] [id number] [place] [address] 19349- 0228 Jan, 2014 [facility] [id number] [place] [address] 109468- 1764 Dec, [facility] [id number] [place] [address] 861826- 9675 Dec, [facility] [id number] [place] [address] 45910- 3730 Dec, [facility] [id number] [place] [address] 66170- 8803 Dec, [facility] [id number] [place] [address] 25120- 6312 November, [facility] [address] [address] 8576 November, [facility] [id number] [place] [address] 87687- 2548 November, Shortness of breath 786.05 [facility] [address] [address] 3537 November, Rheumatoid arthritis 714.0 [facility] [id number] [place] [address] 24006- 1847 November, 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 [facility] [address] [address] 2521 November, Neuropathy 355.9 ; Insomnia 780.52 ; Dysthymia 300.4 ; Shortness of breath 786.05 ; Rheumatoid arthritis 714.0 and Nausea 787.02 [facility] [address] [address] 4755 November, [facility] [id number] [place] [address] 6092 November, [facility] [address] [address]- 7594 Oct, [facility] [address] [id number] [place] [address] 1288 Oct, [facility] [id number] [place] [address], [place] [address]- 5256 Oct, [facility] [address] [id number] [place] [address]- 9078 Oct, [facility] [id number] [place] [address]- 8089 Sep, [facility] [address]00565[address] [address]- 2153 Sep, [facility] [address]00565[address] [address]- 6665 Sep, [facility] [address]00565[address] [address]- 2965 Sep, [facility] [address]00565[address] [address]- 7957 Sep, [facility] [address]00565[address] [address]- 4349 Sep, [facility] [address]00565[address] [address]- 4892 Sep, [facility] [address] 7702 Sep, [facility] [address] [id number] 2631 Aug, [facility] [place] [facility] [address] [id number] [place] [address]- 1694 Aug, [facility] [place] [facility] [address] [id number] [place] [address]- 3654 Aug, [facility] [place] [facility] [address] [id number] [place] [address]- 2806 Aug, [facility] [place] [facility] [address] [id number] [place] [address]- 7515 Aug, [facility] [place] [facility] [address] [id number] [place] [address]- 4513 Aug, [facility] [place] [facility] [address] [id number] [place] [address]- 6128 Jul, [facility] [place] [facility] [address] [id number] [place] [address]- 7450 Jul, [facility] [place] [facility] [address] [id number] [place] [address]- 0367 Jul, [facility] [place] [facility] [address] [id number] [place] [address]- 8729 Jul, [facility] [place] [facility] [address] [id number] [place] [address]- 2155 Jul, [facility] [place] [facility] [address] [id number] [place] [address]- 0219 Jul, [facility] [place] [facility] [address] [id number] [address]- 9503 Jul, [facility] [place] [facility] [address] [id number] [place] [address]- 0414 Jul, [facility] [place] [facility] [address] [id number] [place] [address]- 2697 Jul, [facility] [place] [facility] [address] [id number] [place] [address]- 0073 Jul, [facility] [place] [facility] [address] [id number] [place] [address]- 9528 30 Jun, 2014 [facility] [place] [facility] [address] [id number] [place] [address]- 2556 30 Jun, 2014 [facility] [place] [facility] [address] [id number] [place] [address]- 0236 Jun, [facility] [place] [facility] [address] [id number] [place] [address]- 2076 Jun, [facility] [place] [facility] [address] [id number] [place] [address]- 5070 Jun, [facility] [place] [facility] [address] [id number] [place] [address]- 8556 Jun, [facility] [place] [facility] [address] [id number] [place] [address]- 0567 Jun, [facility] [place] [facility] [address] [id number] [place] [address]- 2634 Jun, [facility] [place] [facility] [address] [id number] [place] [address]- 9507 Jun, [facility] [place] [facility] [address] [id number] [place] [address]- 9516 Jun, [facility] [place] [facility] [address] [id number] [place] [address]- 9485 Jun, [facility] [place] [facility] [address] [id number] [place] [address]- 7942 Jun, [facility] [place] [facility] [address] [id number] [place] [address]- 7434 Jun, [facility] [place] [facility] [address] [id number] [place] [address]- 3237 Jun, [facility] [place] [facility] [address] [id number] [place] [address]- 0301 Jun, [facility] [place] [facility] [address] [id number] [place] [address]882 Jun, [facility] [place] [facility] [address] [id number] [place] [address]- 1771 May, [facility] [place] [facility] [address] [id number] [place] [address]- 4727 May, [facility] [place] [facility] [address] [id number] [place] [address]- 1302 May, [facility] [place] [facility] [address] [id number] [place] [address]- 3628 May, [facility] [place] [facility] [address] [id number] [place] [address]- 0544 May, [facility] [place] [facility] [address] [id number] [place] [address]- 0753 May, [facility] [place] [facility] [address] [id number] [place] [address]- 6336 May, [facility] [place] [facility] [address] [id number] [place] [address]- 4571 May, [facility] [place] [facility] [address] [id number] [place] [address]- 4565 May, [facility] [place] [facility] [address] [id number] [place] [address]- 4172 Apr, [facility] [place] [facility] [address] [id number] [place] [address]- 3364 Apr, [facility] [place] [facility] [address] [id number] [place] [address]- 4505 Apr, [facility] [place] [facility] [address] [id number] [place] [address]- 5586 Apr, [facility] [place] [facility] [address] [id number] [place] [address]- 3489 Apr, [facility] [place] [facility] [address] [id number] [place] [address]- 1800 Apr, [facility] [place] [facility] [address] [id number] [place] [address]- 1938 Apr, [facility] [place] [facility] [address] [id number] [place] [address]- 0224 Apr, [facility] [place] [facility] [address] [id number] [place] [address]- 2027 Apr, [facility] [place] [facility] [address] [id number] [place] [address]- 3634 Apr, [facility] [place] [facility] [address] [id number] [place] [address]- 0210 Apr, [facility] [place] [facility] [address] [id number] [place] [address]- 1791 Apr, [facility] [place] [facility] [address] [id number] [place] [address]- 7964 Mar, 2013 [facility] [place] [facility] [address] [id number] [place] [address]- 0003 Mar, 2013 [facility] [place] [facility] [address] [id number] [address]- 7002 Mar, 2013 [facility] [place] [facility] [address] [id number] [place] [address]- 5324 Mar, 2013 [facility] [place] [facility] [address] [id number] [place] [address]- 0037 Mar, 2013 [facility] [place] [facility] [address] [id number] [place] [address]- 5619 Mar, 2013 [facility] [place] [facility] [address] [id number] [place] [address]- 0968 Mar, 2013 [facility] [place] [facility] [address] [id number] [place] [address]- 254 Mar, 2013 [facility] [place] [facility] [address] [id number] [place] [address]- 9037 Mar, 2013 [facility] [place] [facility] [address] [id number] [address]- 7815 Mar, 2013 [facility] [place] [facility] [address] [id number] [place] [address]- 0531 Feb, [facility] [place] [facility] [address] [id number] [place] [address]- 5370 Feb, [facility] [place] [facility] [address] [id number] [place] [address]- 5852 Feb, [facility] [place] [facility] [address] [id number] [place] [address]- 6237 Feb, [facility] [place] [facility] [address] [id number] [place] [address]- 1165 Feb, [facility] [place] [facility] [address] [id number] [place] [address]- 4912 Feb, [facility] [place] [facility] [address] [id number] [place] [address]- 1898 Feb, [facility] [place] [facility] [address] [id number] [place] [address]- 0534 Feb, [facility] [place] [facility] [address] [id number] [place] [address]- 5626 Feb, [facility] [place] [facility] [address] [id number] [place] [address]- 3061 Feb, [facility] [place] [facility] [address] [id number] [place] [address]- 8532 Feb, [facility] [place] [facility] [address] [id number] [place] [address]- 6755 Feb, [facility] [place] [facility] [address] [id number] [place] [address]- 2779 Feb, [facility] [place] [facility] [address] [id number] [place] [address]- 1948 Feb, [facility] [place] [facility] [address] [id number] [place] [address]- 4572 Feb, [facility] [place] [facility] [address] [id number] [place] [address]- 6481 Feb, [facility] [place] [facility] [address] [id number] [place] [address]- 5367 Jan, [facility] [place] [facility] [address] [id number] [place] [address]- 9946 Jan, [facility] [place] [facility] [address] [id number] [place] [address]- 2842 Jan, [facility] [place] [facility] [address] [id number] [place] [address]- 0837 Jan, [facility] [place] [facility] [address] [id number] [place] [address]- 1435 Jan, [facility] [place] [facility] [address] [id number] [place] [address]- 8617 Jan, [facility] [place] [facility] [address] [id number] [place] [address]- 6521 Dec, [facility] [place] [facility] [address] [id number] [place] [address]- 8937 Dec, [facility] [place] [facility] [address] [id number] [place] [address]- 1306 Dec, [facility] [place] [facility] [address] [id number] [place] [address]- 6902 Dec, [facility] [place] [facility] [address] [id number] [place] [address]- 5354 Dec, [facility] [place] [facility] [address] [id number] [place] [address]- 1241 Dec, [facility] [place] [facility] [address] [id number] [place] [address]- 1483 Dec, [facility] [place] [facility] [address] [id number] [place] [address]- 6288 Dec, [facility] [place] [facility] [address] [id number] [place] [address]- 3415 November, [facility] [place] [facility] [address] [id number] [place] [address]- 4570 November, [facility] [place] [facility] [address] [id number] [place] [address]- 2063 November, [facility] [place] [facility] [address] [id number] [place] [address]- 3224 November, [facility] [place] [facility] [address] [id number] [place] [address]- 6222 November, [facility] [place] [facility] [address] [id number] [place] [address]- 6298 November, [facility] [place] [facility] [address] [id number] [place] [address]- 3579 Oct, [facility] [place] [facility] [address] [id number] [place] [address]- 7215 Oct, [facility] [place] [facility] [address] [id number] [place] [address]- 3592 Oct, [facility] [place] [facility] [address] [id number] [place] [address]- 9113 Oct, [facility] [place] [facility] [address] [id number] [place] [address]- 8954 Sep, [facility] [place] [facility] [address] [id number] [place] [address]- 4657 Sep, [facility] [place] [facility] [address] [id number] [place] [address]- 4004 Sep, [facility] [place] [facility] [address] [id number] [place] [address]- 8364 Sep, [facility] [place] [facility] [address] [id number] [place] [address]- 4621 Sep, [facility] [place] [facility] [address] [id number] [place] [address]- 0444 Sep, [facility] [place] [facility] [address] [id number] [place] [address]- 4305 Aug, [facility] [place] [facility] [address] [id number] [place] [address]- 3820 Aug, [facility] [place] [facility] [address] [id number] [place] [address]- 8948 Aug, [facility] [place] [facility] [address] [id number] [place] [address]- 2606 Aug, [facility] [place] [facility] [address] [id number] [place] [address]- 7838 Aug, [facility] [place] [facility] [address] [id number] [place] [address]- 2127 Aug, [facility] [place] [facility] [address] [id number] [place] [address]- 5120 Jul, [facility] [place] [facility] [address] [id number] [place] [address]- 8828 Jul, [facility] [place] [facility] [address] [id number] [place] [address]- 0730 Jul, [facility] [place] [facility] [address] [id number] [place] [address]- 3164 Jul, [facility] [place] [facility] [address] [id number] [place] [address]- 0696 Jul, [facility] [place] [facility] [address] [id number] [place] [address]- 9835 Jul, [facility] [place] [facility] [address] [id number] [place] [address]- 1334 Jul, [facility] [place] [facility] [address] [id number] [place] [address]- 1928 Jul, [facility] [place] [facility] [address] [id number] [place] [address]- 8336 Jul, [facility] [place] [facility] [address] [id number] [place] [address]- 6594 Jul, [facility] [place] [facility] [address] [id number] [place] [address]- 4447 Jul, [facility] [address] [id number] [place] [address]- 0215 Jul, [facility] [address] [id number] [place] [address]- 2747 Jul, [facility] [address] [id number] [place] [address]- 3873 Jul, [facility] [address] [id number] [place] [address]- 8369 Jul, [facility] [address] [id number] [place] [address]- 1240 Jun, [facility] [address] [id number] [place] [address]- 3451 Jun, [facility] [address] [id number] [place] [address]- 1133 Jun, [facility] [address] [id number] [place] [address]- 1481 Jun, [facility] [address] [id number] [place] [address]- 3719 May, [facility] [address] [id number] [place] [address]- 6931 May, [facility] [address] [id number] [place] [id number] May, [facility] [place] [facility] [address] [id number] [place] [address]- 2289 May, [facility] [place] [facility] [address] [id number] [place] [address]- 4955 May, [facility] [place] [facility] [address] [id number] [place] [address]- 6939 May, [facility] [place] [facility] [address] [id number] [place] [address]- 5328 May, [facility] [place] [facility] [address] [facility] [id number] [place] [address] 2546 May, [facility] [address]00565100[place] [address] 2546 May, [facility] [id number] [address] May, [facility] [address]00565100[place] [address]- 2546 May, [facility] [id number] [id number] May, [facility] [address]00565100[place] [address] 2546 May, [id number] [place] [id number] May, [facility] [address]00565100[place] [address]- 2836 May, IMMUNIZATIONS No Known Immunizations SOCIAL HISTORY Never Assessed REASON FOR VISIT Controlled Refill Requests PLAN OF CARE VITAL SIGNS MEDICATIONS Medication Instructions Dosage Frequency Start Date End Date Duration Status Xanax 0.5 MG Orally Once a day 1 tablet at bedtime 24h Jan, 28 days Active Oxycodone-Acetaminophen 5-325 MG Orally 3 times a day 1 tablet 8h Mar, 28 days Active RESULTS No Results PROCEDURES [...] History Exacerbation COPD 10/23/15 Hospitalization History Diarrhea, leukocytosis--[facility] 01/08/16 Hospitalization History pseudomemranous colitis, sepsis--[facility] 04/21/2016 Hospitalization History C Diff--[facility] 05/10/2016 Hospitalization History sepsis, pneumonia, diarrhea--[facility] 06/11/16 Hospitalization History recurrent cdiff, pneumonia-[facility] 07/22/16 Hospitalization History sepsis,pneumonia- [facility]
--- OUTSIDE RECORDS SUMMARY | 2018-03-18 20:17 | XMS REPORT ---
Author Author DAPHNE YUSUF Organization [facility] Address [address] [place] [address] Care Team Providers Care Physical Therapy Assistant Instructor Name Role Phone DAPHNE YUSUF Unavailable PROBLEMS Type Condition ICD9-CM Code PVS38-AS Code Onset Dates Condition Status SNOMED Code Problem Hx of Clostridium difficile infection Z86.19 Active 577794425 Problem History of arthroplasty of right knee Z96.651 Active 165720542 Problem Dysphagia, unspecified dysphagia R13.10 Active 50094286 Problem Chronic pain syndrome G89.4 Active 095510836 Problem 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 736580393 Problem Anxiety F41.9 Active 05920080 Problem Leg pain, left M79.605 Active 090410530 Problem Depression, unspecified depression type F32.9 Active 75010972 Problem Iron deficiency anemia, unspecified iron deficiency anemia type D50.9 Active 64649248 Problem Anemia, unspecified type D64.9 Active 790125705 Problem Seasonal allergic rhinitis due to pollen J30.1 Active 61768096 Problem Insomnia, unspecified G47.00 Active 701872675 Problem 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 820529761 Problem History of cerebrovascular accident with current residual effects I69.90 Active 629803922 Problem Peripheral vascular disease, unspecified I73.9 Active 283331032 Problem Rheumatoid arthritis, involving unspecified site, unspecified rheumatoid factor presence M06.9 Active 01120410 Problem Other chronic pain G89.29 Active 48566829 Problem Primary insomnia F51.01 Active 6511574 Problem Chronic obstructive pulmon disease w acute lower resp infct J44.0 Active 484645139 Problem Atrial fibrillation I48.91 Active 42355560 Problem Dysthymia F34.1 Active 69801152 Problem Osteoarthritis of foot M19.079 Active 230344818 Problem Rheumatoid arthritis M06.9 Active 24608995 Problem Tobacco abuse, 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 134675143 Problem Edema R60.9 Active 926556304 Problem COPD (chronic obstructive pulmonary disease) J44.9 Active 66794287 Problem Hypertension I10 Active 21874086 ALLERGIES No Information ENCOUNTERS Encounter Location Date Diagnosis [facility] [id number] [place] [address] 06538- 7099 November, Chronic pain syndrome G89.4 [facility] [address] 44371- 1415 November, [facility] [address] 60219- 2741 Oct, Chronic pain syndrome G89.4 [facility] [address] 88761- 1576 Oct, [facility] [address] 92710- 5554 Oct, Chronic pain syndrome G89.4 [facility] [address] 23281- 4697 Oct, [facility] [address] 98135- 5304 Oct, [facility] [id number] [place] [address] 04298- 5583 Sep, Left upper quadrant pain R10.12 ; Chronic pain syndrome G89.4 ; Left lower quadrant pain R10.32 ; Other chronic pain G89.29 ; Sacrococcygeal disorders, not elsewhere classified M53.3 and Seasonal allergic rhinitis due to pollen J30.1 [facility] [id number] [place] [address] 57748- 3654 Sep, Chronic pain syndrome G89.4 [facility] [address] 49968- 6220 Sep, [facility] [id number] [place] [address] 71591- 4095 Aug, Chronic pain syndrome G89.4 [facility] [address] [address] 0874 Aug, [facility] [id number] [place] [address] 03943- 0214 Aug, Insomnia, unspecified G47.00 [facility] [address] [place] [address] 56088- 1299 Jul, [facility] [id number] [place] [address] 87748- 3690 Jul, [facility] [id number] [place] [address] 10845- 4836 Jul, Chronic pain syndrome G89.4 [facility] [id number] [place] [address] 23240- 9419 Jun, Chronic pain syndrome G89.4 [facility] [id number] [place] [address] 77315- 1980 Jun, Chronic pain syndrome G89.4 [facility] [id number] [place] [address] 27208- 3752 May, [facility] [id number] [place] [address] 16272- 9943 May, Shortness of breath R06.02 ; Peripheral vascular disease, unspecified I73.9 ; Pain in right knee M25.561 ; Other chronic pain G89.29 ; Chest wall pain R07.89 ; Chronic pain syndrome G89.4 ; Primary insomnia F51.01 and Ear pain, left H92.02 [facility] [address] [place] [address] 99706- 3010 06 May, 2017 Anxiety F41.9 [facility] [id number] [place] [address] 45475- 0568 09 Apr, 2017 Pneumonia due to infectious organism, unspecified laterality , unspecified part of lung J18.9 ; Hypoxia R09.02 ; Bradycardia R00.1 ; History of Clostridium difficile Z87.19 and Primary insomnia F51.01 [facility] [id number] [place] [address] 79086- 0282 Apr, Anxiety F41.9 [facility] [address] 28425- 5327 Apr, [facility] [id number] [place] [address] 95878- 7306 Mar, Anxiety F41.9 [facility] [address] 66270- 6936 Feb, [facility] [address] 35184- 2157 Feb, [facility] [address] 92375- 3308 Feb, Abnormal finding on urinalysis R82.90 [facility] [address] 57427- 8008 Feb, [facility] [address] 35640- 8061 Feb, Shortness of breath R06.02 ; Tachycardia R00.0 ; Cough R05 ; Ill feeling R68.89 and Abnormal finding on urinalysis R82.90 [facility] [id number] [place] [address] 47589- 7884 Feb, Anxiety F41.9 [facility] [id number] [place] [address] 53993 -0444 Feb, Sore throat J02.9 and Acute diffuse otitis externa of left ear H60.312 [facility] [address] 08687- 3812 Jan, [facility] [address] 08156- 3137 Jan, [facility] [address] [id number] Jan, [facility] [id number] [place] [address] 83723- 4833 17 Jan, 2017 Depression, unspecified depression type F32.9 ; Chronic bronchitis, unspecified chronic bronchitis type J42 ; Chronic pain syndrome G89.4 and Anxiety F41.9 [facility] [address] [address]- 7602 14 Jan, 2017 [facility] [id number] [place] [address] 02549- 3613 Jan, [facility] [address] [place] [address] 44053- 3822 Jan, [facility] [id number] [place] [address] [id number] Jan, Chronic pain syndrome G89.4 [facility] [address] [place] [id number] Dec, History of right knee surgery Z98.890 [facility] [address] [place] [address] 89549- 3811 Dec, [facility] [address] [place] [address] 02137- 1373 Dec, Chronic pain syndrome G89.4 [facility] [address] [place] [address] 58728- 6533 November, Anxiety F41.9 [facility] [address] [place] [address] 67131 -6474 November, Acute cystitis without hematuria N30.00 [facility] [address] [place] [address] 59409 -9052 November, Fever, unspecified fever cause R50.9 and Acute cystitis without hematuria N30.00 [facility] [address] [place] [address] 75645- 2799 November, Chronic pain syndrome G89.4 [facility] [address] [place] [address] 69167- 7421 Oct, Anxiety F41.9 [facility] [address] [address]- 7399 Oct, Chronic pain syndrome G89.4 [facility] [address] [place] [address] 71364- 7153 Oct, Chronic pain syndrome G89.4 [facility] [address] [place] [address] 25500- 6265 Oct, [facility] [id number] [place] [address] 95136- 0994 Oct, Chronic pain syndrome G89.4 ; Pain in right knee M25.561 ; History of Clostridium difficile Z87.19 ; Iron deficiency anemia, unspecified iron deficiency anemia type D50.9 ; Peripheral vascular disease, unspecified I73.9 and Atrial fibrillation I48.91 [facility] [address] [place] [address] 02617- 8630 Oct, [facility] [address] [place] [address] 07777- 4998 Oct, Chronic pain syndrome G89.4 [facility] [address] [place] [address] 62718- 4243 Sep, [facility] [address] [place] [address] 88867- 3197 Sep, Depression, unspecified depression type F32.9 ; Chronic bronchitis, unspecified chronic bronchitis type J42 ; Chronic pain syndrome G89.4 and Anxiety F41.9 [facility] [address] [place] [id number] Sep, History of Clostridium difficile infection Z86.19 and History of stroke Z86.73 [facility] [id number] [place] [address] [id number] Sep, Anxiety F41.9 [facility] [address] [place] [address] 04432- 7289 Sep, Chronic pain syndrome G89.4 [facility] [id number] [place] [address] 64717- 8957 Sep, [facility] [id number] [place] [address] [id number] Sep, [facility] [id number] [place] [address] 75621- 4197 Aug, Anxiety F41.9 [facility] [address] [place] [address] 98676- 9408 Aug, Anxiety F41.9 [facility] [id number] [place] [address] 90027- 9487 Aug, [facility] [id number] [place] [address] 83426- 2181 14 Aug, 2016 Acute knee pain, unspecified laterality M25.569 [facility] [id number] [place] [address] 16171- 5632 Aug, [facility] [id number] [place] [address] 75958- 2706 Aug, Chronic pain syndrome G89.4 [facility] [id number] [place] [address] 44414- 7259 Aug, [facility] [address] [place] [address] 20565- 5740 Aug, [facility] [address] [place] [address] 22376- 9643 Jul, [facility] [address] [place] [address] 26938- 7591 Jul, Anxiety F41.9 [facility] [address] [place] [address] 25406- 0650 Jul, Clostridium difficile diarrhea A04.7 [facility] [address] [place] [id number] Jul, Clostridium difficile diarrhea A04.7 ; Chronic pain syndrome G89.4 ; Chronic obstructive pulmon disease w acute lower resp infct J44.0 and Pain in right knee M25.561 [facility] [id number] [place] [address] [id number] Jul, [facility] [address] [place] [address] 55051 -3821 Jul, Anxiety F41.9 and Chronic pain syndrome G89.4 [facility] [id number] [place] [address] 72130- 1438 Jun, Anxiety F41.9 [facility] [address] [place] [address] 30144- 1913 Jun, Rheumatoid arthritis 714.0 [facility] [id number] [place] [address] 08811- 2446 Jun, Chronic pain syndrome G89.4 [facility] [address] [place] [address] 95588- 4018 Jun, [facility] [id number] [place] [address] 16694- 8845 Jun, [facility] [address] [place] [address] 00378- 4094 Jun, History of pneumonia Z87.01 and History of Clostridium difficile Z87.19 [facility] [address] [place] [address] 90815- 6662 Jun, [facility] [id number] [place] [address] 33998- 5705 May, [facility] [id number] [place] [address] 55493 2543 May, Anxiety F41.9 [facility] [id number] [place] [address] 01936- 5228 May, Chronic pain syndrome G89.4 [facility] [address] [place] [address] 95266- 8557 May, Chronic bronchitis, unspecified chronic bronchitis type J42 [facility] [id number] [address]- 4119 May, [facility] [id number] [place] [address] 93385- 2968 May, C. difficile diarrhea A04.7 ; Peripheral edema R60.9 ; COPD (chronic obstructive pulmonary disease) J44.9 ; Rheumatoid arthritis, involving unspecified site, unspecified rheumatoid factor presence M06.9 ; Pain in right knee M25.561 ; Pain in left knee M25.562 and Other chronic pain G89.29 [facility] [id number] [place] [address] 54223- 1815 May, [facility] [id number] [place] [address] 57529- 4664 May, [facility] [id number] [place] [address] 62695- 6722 May, Anxiety F41.9 [facility] [id number] [place] [address] 38807- 8484 Apr, [facility] [id number] [place] [address] 76808- 1336 Apr, Chronic pain syndrome G89.4 [facility] [id number] [place] [address] 18527- 9374 Apr, Leg pain, left M79.605 [facility] [id number] [place] [address] 64931- 1486 Apr, [facility] [address] [place] [address] 21175- 9230 Apr, [facility] [id number] [place] [address] 60907- 6819 Apr, [facility] [id number] [address]- 8789 Mar, Chronic pain syndrome G89.4 [facility] [id number] [place] [address] 73426- 5896 Mar, Acute frontal sinusitis, recurrence not specified J01.10 [facility] [address] [place] [address] 86055- 3948 Mar, Iron deficiency anemia, unspecified iron deficiency anemia type D50.9 ; Rheumatoid arthritis with positive rheumatoid factor, involving unspecified site M05.9 and Depression, unspecified depression type F32.9 [facility] [id number] [place] [address] 94593- 3820 Mar, Iron deficiency anemia, unspecified iron deficiency anemia type D50.9 ; Depression, unspecified depression type F32.9 and Rheumatoid arthritis with positive rheumatoid factor, involving unspecified site M05.9 [facility] [id number] [place] [address] 18999- 7321 Mar, [facility] [id number] [place] [address] 54513- 6256 Mar, [facility] [id number] [place] [address] 91820- 5024 Feb, Chronic pain syndrome G89.4 [facility] [id number] [place] [address] 34868- 6232 30 Feb, 2016 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 ; Status post CVA Z86.73 ; Hemiplegia G81.90 and Anemia, unspecified type D64.9 [facility] [address] [place] [address] 67981- 2603 Feb, [facility] [id number] [place] [address] 61878- 9089 Feb, Anemia, unspecified type D64.9 [facility] [id number] [place] [address] 38435- 1329 Feb, [facility] [id number] [place] [address] 41243- 4383 Feb, Iron deficiency anemia, unspecified iron deficiency anemia type D50.9 [facility] [address] [address]- 7871 Feb, [facility] [id number] [place] [address] 27514- 3418 Feb, Chronic bronchitis, unspecified chronic bronchitis type J42 [facility] [address] [place] [address] 33248- 8177 Feb, Iron deficiency anemia, unspecified iron deficiency anemia type D50.9 [facility] [id number] [place] [address] 95051- 1857 Feb, Chronic pain syndrome G89.4 [facility] [id number] [place] [address] 65569- 5610 Feb, Anemia, unspecified type D64.9 and Hypoxia R09.02 [facility] [id number] [place] [address] 07199- 9561 Feb, Anemia, unspecified type D64.9 [facility] [address], [place] [address]- 3695 Jan, [facility] [id number] [place] [address] 04839- 9076 Jan, Anemia, unspecified type D64.9 [facility] [address] [address]- 2622 Jan, [facility] [address] [place] [address] 15500- 7735 Jan, Anemia, unspecified type D64.9 [facility] [address], [place] [address]- 7259 Jan, Anemia, unspecified type D64.9 [facility] [address] [address]- 5808 Jan, [facility] [address] [address]- 6601 Jan, Anemia, unspecified type D64.9 [facility] [address] [place] [address] 36110- 2754 Jan, [facility] [id number] [place] [address] 01215- 6212 Jan, [facility] [id number] [place] [address] 54213- 3028 Jan, Chronic pain syndrome G89.4 [facility] [id number] [place] [address] 80934- 5686 Jan, Anemia, unspecified type D64.9 [facility] [id number] [place] [address] 03858- 4339 Jan, Dysthymia F34.1 ; Cervicalgia M54.2 ; Fatigue, unspecified type R53.83 and Depression, unspecified depression type F32.9 [facility] [id number] [place] [address] 25072- 7803 Dec, [facility] [id number] [place] [address] 51544- 2705 Dec, Anxiety F41.9 [facility] [address] 76010- 2795 Dec, Chronic pain syndrome G89.4 [facility] [id number] [place] [address] 12923- 5728 November, [facility] [id number] [place] [address] 25812- 3392 November, Edema R60.9 and Dizziness R42 [facility] [id number] [place] [address] 31720- 1041 November, [facility] [id number] [place] [address] 61072- 1063 November, [facility] [id number] [place] [address] 54594- 1178 November, COPD (chronic obstructive pulmonary disease) J44.9 ; Increased tracheal secretions J39.8 and Edema R60.9 [facility] [id number] [place] [address] 61377 -1411 29 Oct, 2015 [facility] [id number] [place] [address] 69746 -7958 28 Oct, 2015 Shortness of breath R06.02 and Edema R60.9 [facility] [address] 24538- 1066 20 Oct, 2015 Chronic bronchitis, unspecified chronic bronchitis type J42 ; Peripheral vascular disease, unspecified I73.9 ; Rheumatoid arthritis M06.9 and Atrial fibrillation I48.91 [facility] [address] 19042- 9088 Oct, [facility] [id number] [place] [address] 28900- 9953 Oct, [facility] [id number] [place] [address] 45042- 3308 Oct, [facility] [id number] [place] [address] 73881- 9349 Oct, [facility] [id number] [place] [address] 90465 -1654 Oct, COPD exacerbation J44.1 [facility] [id number] [place] [address] 12144- 8682 Sep, [facility] [id number] [place] [address] 13800- 7385 Sep, [facility] [id number] [place] [address] 71540- 2959 16 Sep, 2015 [facility] [id number] [place] [address] 86463- 4380 17 Aug, 2015 [facility] [id number] [place] [address] 43693- 8930 16 Aug, 2015 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 and PVD (peripheral vascular disease ) I73.9 [facility] [address] [place] [address] 27813- 0774 Aug, Bronchitis J40 ; COPD (chronic obstructive pulmonary disease ) J44.9 and Dysthymia F34.1 [facility] [id number] [place] [address] 45377- 8096 Aug, [facility] [address] [address]- [address]116 Jul, [facility] [id number] [place] [address] [id number]- 7335 Jul, [facility] [id number] [place] [address] 51021- 2302 Jul, [facility] [id number] [place] [address] 15343- 6280 Jun, [facility] [id number] [place] [address] 81472- 5481 Jun, [facility] [id number] [place] [address] 20901- 3933 Jun, Peripheral vascular disease I73.9 [facility] [id number] [place] [address] 74070- 4604 Jun, [facility] [id number] [place] [address] 57392- 9214 Jun, [facility] [id number] [place] [address] 41681- 2549 Jun, Leg pain, left M79.605 ; Dysphagia, unspecified dysphagia R13.10 ; Insomnia, unspecified type G47.00 ; PVD (peripheral vascular disease) I73.9 and 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 [facility] [id number] [place] [address] 76527- 8922 May, [facility] [address] [address]- 4255 May, [facility] [id number] [place] [address]60 May, [facility] [id number] [place] [address] 50795- 5564 May, [facility] [id number] [address] May, [facility] [address] [facility] [id number] [place] [address] 72092- 7574 Apr, [facility] [id number] [place] [address] 50744- 1407 Apr, [facility] [id number] [place] [address] 43912- 4148 Mar, [facility] [address] [place] [id number] [place] [address] 73842- 1017 Mar, [facility] [id number] [place] [address] 66935- 7520 Feb, [facility] [id number] [place] [address] 92887- 7792 Feb, Nicotine abuse 305.1 ; Arthralgia 719.40 and 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 [facility] [id number] [address] 9937 Feb, [facility] [id number] [address] 5409 Jan, [facility] [id number] [address] 2384 Jan, [facility] [id number] [address] 9410 Jan, [facility] [id number] 4758 Jan, [facility] [id number] [place] [address] 03346- 5541 Jan, 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 ; Rheumatoid arthritis 714.0 ; Hypertension 401.9 ; GERD (gastroesophageal reflux disease) 530.81 ; Nicotine addiction 305.1 and Leukocytosis 288.60 [facility] [id number] [address] 2320 Jan, 2014 [facility] [id number] [place] [address] 85529- 5082 Jan, 2014 [facility] [id number] [place] [address] 81469- 8678 Jan, [facility] [id number] [place] [address] 93242- 5777 Jan, [facility] [id number] [place] [address] 16795- 9858 Jan, [facility] [id number] [place] [address] 39125- 7415 Dec, [facility] [id number] [place] [address] 76689- 8431 Dec, [facility] [id number] [place] [address] 34322- 3522 Dec, [facility] [id number] [place] [address] 06280- 8955 Dec, [facility] [id number] [place] [address] 81948- 1023 November, [facility] [id number] [address] 3414 November, [facility] [id number] [place] [address] 69301- 3663 November, Shortness of breath 786.05 [facility] [id number] [address]- 1844 November, Rheumatoid arthritis 714.0 [facility] [id number] [place] [address] 34556- 8527 November, 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 [facility] [id number] [place] [address] 71781- 1654 November, Neuropathy 355.9 ; Insomnia 780.52 ; Dysthymia 300.4 ; Shortness of breath 786.05 ; Rheumatoid arthritis 714.0 and Nausea 787.02 [facility] [id number] [place] [address] 39465- 3736 November, [facility] [id number] [place] [address] 12766- 7566 November, [facility] [id number] [place] [address] 377674- 7315 Oct, [facility] [id number] [place] [address] 38319- 8259 Oct, [facility] [id number] [place] [address] 69185- 8793 Oct, [facility] [id number] [place] [address] 09072- 1285 Oct, [facility] [id number] [place] [address] [id number]- 4558 Sep, [facility] [id number] 9577 Sep, [facility] [id number] [address]- 7446 Sep, [facility] [id number], [place] [address]- 7466 Sep, [facility] [id number] [place] [address] 07113- 0713 Sep, [facility] [id number], [place] [address]- 0136 Sep, [facility] [id number] [place] [address] 11547- 6261 Sep, [facility] [place] [facility] [address] [id number] [place] [address]- 0784 Sep, [facility] [place] [facility] [address] [id number] [place] [address]- 5335 Aug, [facility] [place] [facility] [address] [id number] [place] [address]- 1515 Aug, [facility] [place] [facility] [address] [id number] [place] [address]- 0540 Aug, [facility] [place] [facility] [address] [id number] [place] [address]- 0430 Aug, [facility] [place] [facility] [address] [id number] [place] [address]- 9486 Aug, [facility] [place] [facility] [address] [id number] [place] [address]- 0264 Aug, [facility] [place] [facility] [address] [id number] [place] [address]- 6217 Jul, [facility] [place] [facility] [address] [id number] [place] [address]- 0843 Jul, [facility] [place] [facility] [address] [id number] [place] [address]- 7550 Jul, [facility] [place] [facility] [address] [id number] [place] [address]- 7750 Jul, [facility] [place] [facility] [address] [id number] [place] [address]- 6849 Jul, [facility] [place] [facility] [address] [id number] [place] [address]- 6893 Jul, [facility] [place] [facility] [address] [id number] [place] [address]- 6223 Jul, [facility] [place] [facility] [address] [id number] [place] [address]- 9966 Jul, [facility] [place] [facility] [address] [id number] [place] [address]- 4530 Jul, [facility] [address] [id number] [place] [address]- 4220 Jul, [facility] [place] [facility] [address] [id number] [place] [address]- 7042 Jun, [facility] [place] [facility] [address] [id number] [place] [address]- 8965 Jun, [facility] [place] [facility] [address] [id number] [place] [address]- 3236 Jun, [facility] [address] [id number] [place] [address]- 0467 Jun, [facility] [address] [id number] [place] [address]- 4366 Jun, [facility] [address] [id number] [place] [address]- 3958 Jun, [facility] [address] [id number] [place] [address]- 3020 Jun, [facility] [place] [facility] [address] [id number] [place] [address]- 2801 Jun, [facility] [address] [id number] [place] [address]- 3076 Jun, [facility] [place] [facility] [address] [id number] [place] [address]- 3779 Jun, [facility] [place] [facility] [address] [id number] [place] [address]- 5418 Jun, [facility] [place] [facility] [address] [id number] [place] [address]- 9947 Jun, [facility] [place] [facility] [address] [id number] [place] [address]- 6973 Jun, [facility] [place] [facility] [address] [id number] [place] [address]- 1856 Jun, [facility] [place] [facility] [address] [id number] [place] [address]- 1606 Jun, [facility] [place] [facility] [address] [id number] [place] [address]- 2910 Jun, [facility] [place] [facility] [address] [id number] [place] [address]- 8622 May, [facility] [place] [facility] [address] [id number] [place] [address]- 9878 May, [facility] [place] [facility] [address] [id number] [place] [address]- 6799 May, [facility] [place] [facility] [address] [id number] [place] [address]- 9265 May, [facility] [place] [facility] [address] [id number] [place] [address]- 2001 May, [facility] [place] [facility] [address] [id number] [place] [address]- 5073 May, [facility] [place] [facility] [address] [id number] [place] [address]- 1407 May, [facility] [place] [facility] [address] [id number] [place] [address]- 4190 May, [facility] [place] [facility] [address] [id number] [place] [address]- 9555 May, [facility] [place] [facility] [address] [id number] [address]- 0366 Apr, [facility] [place] [facility] [address] [id number] [place] [address]- 0612 Apr, [facility] [place] [facility] [address] [id number] [place] [address]- 9046 Apr, [facility] [place] [facility] [address] [id number] [place] [address]- 8668 Apr, [facility] [place] [facility] [address] [id number] [place] [address]- 1463 Apr, [facility] [place] [facility] [address] [id number] [place] [address]- 4833 10 Apr, 2014 [facility] [place] [facility] [address] [id number] [place] [address]- 5333 Apr, [facility] [place] [facility] [address] [id number] [place] [address]- 3851 Apr, [facility] [place] [facility] [address] [id number] [place] [address]- 8839 Apr, [facility] [place] [facility] [address] [id number] [place] [address]- 5036 Apr, [facility] [place] [facility] [address] [id number] [place] [address]- 0869 Apr, [facility] [place] [facility] [address] [id number] [place] [address]- 2159 Apr, [facility] [place] [facility] [address] [id number] [place] [address]- 2038 22 Mar, 2013 [facility] [place] [facility] [address] [id number] [place] [address]- 1732 22 Mar, 2013 [facility] [place] [facility] [address] [id number] [place] [address]- 2923 19 Mar, 2013 [facility] [place] [facility] [address] [id number] [place] [address]- 4725 19 Mar, 2013 [facility] [place] [facility] [address] [id number], [place] [address]- 0304 11 Mar, 2013 [facility] [place] [facility] [address] [id number] [place] [address]- 2584 11 Mar, 2013 [facility] [place] [facility] [address] [id number], [place] [address]- 8140 11 Mar, 2013 [facility] [place] [facility] [address] [id number], [place] [address]- 8663 11 Mar, 2013 [facility] [place] [facility] [address] [id number] [place] [address]- 5606 Mar, [facility] [place] [facility] [address] [id number] [place] [address]- 7594 Mar, [facility] [place] [facility] [address] [id number] [place] [address]- 8756 Feb, [facility] [place] [facility] [address] [id number] [place] [address]- 5591 Feb, [facility] [place] [facility] [address] [id number] [place] [address]- 6695 Feb, [facility] [place] [facility] [address] [id number] [place] [address]- 4366 Feb, [facility] [place] [facility] [address] [id number] [place] [address]- 9283 Feb, [facility] [place] [facility] [address] [id number] [place] [address]- 1399 Feb, [facility] [place] [facility] [address] [id number] [place] [address]- 4926 Feb, [facility] [place] [facility] [address] [id number] [place] [address]- 8095 Feb, [facility] [place] [facility] [address] [id number] [place] [address]- 8440 Feb, [facility] [place] [facility] [address] [id number] [place] [address]- 0176 Feb, [facility] [place] [facility] [address] [id number] [place] [address]- 8432 Feb, [facility] [place] [facility] [address] [id number] [place] [address]- 6027 Feb, [facility] [place] [facility] [address] [id number] [place] [address]- 5446 Feb, [facility] [place] [facility] [address] [id number] [place] [address]- 2540 Feb, [facility] [place] [facility] [address] [id number] [place] [address]- 3976 Feb, [facility] [place] [facility] [address] [id number] [place] [address]- 1585 Feb, [facility] [place] [facility] [address] [id number] [place] [address]- 7871 Jan, [facility] [place] [facility] [address] [id number] [place] [address]- 0052 Jan, [facility] [place] [facility] [address] [id number] [place] [address]- 5045 Jan, [facility] [place] [facility] [address] [id number] [place] [address]- 9040 Jan, [facility] [place] [facility] [address] [id number] [place] [address]- 5978 Jan, [facility] [place] [facility] [address] [id number] [place] [address]- 1550 Jan, [facility] [place] [facility] [address] [id number] [place] [address]- 9176 Dec, [facility] [place] [facility] [address] [id number] [place] [address]- 2908 Dec, [facility] [place] [facility] [address] [id number] [place] [address]- 1580 Dec, [facility] [place] [facility] [address] [id number], [place] [address]- 7259 Dec, [facility] [place] [facility] [address] [id number] [place] [address]- 1520 Dec, [facility] [place] [facility] [address] [id number] [place] [address]- 5457 Dec, [facility] [place] [facility] [address] [id number] [place] [address]- 8395 Dec, [facility] [place] [facility] [address] [id number] [place] [address]- 6615 Dec, [facility] [place] [facility] [address] [id number] [place] [address]- 0828 November, [facility] [place] [facility] [address] [id number] [place] [address]- 4144 November, [facility] [place] [facility] [address] [id number] [place] [address]- 4771 November, [facility] [place] [facility] [address] [id number] [place] [address]- 3893 November, [facility] [place] [facility] [address] [id number] [place] [address]- 1947 November, [facility] [place] [facility] [address] [id number] [place] [address]- 8051 November, [facility] [place] [facility] [address] [id number] [place] [address]- 0485 Oct, [facility] [place] [facility] [address] [id number] [place] [address]- 1094 Oct, [facility] [place] [facility] [address] [id number] [place] [address]- 8287 Oct, [facility] [place] [facility] [address] [id number] [place] [address]- 4685 Oct, [facility] [place] [facility] [address] [id number] [place] [address]- 2207 Sep, [facility] [place] [facility] [address] [id number] [place] [address]- 8699 Sep, [facility] [place] [facility] [address] [id number] [place] [address]- 2930 Sep, [facility] [place] [facility] [address] [id number] [place] [address]- 6784 Sep, [facility] [place] [facility] [address] [id number] [place] [address]- 5888 Sep, [facility] [place] [facility] [address] [id number] [place] [address]- 1107 Sep, [facility] [place] [facility] [address] [id number] [place] [address]- 2234 Aug, [facility] [place] [facility] [address] [id number] [place] [address]- 3894 Aug, [facility] [place] [facility] [address] [id number] [place] [address]- 2752 Aug, [facility] [place] [facility] [address] [id number] [place] [address]- 4063 Aug, [facility] [place] [facility] [address] [id number] [place] [address]- 0705 Aug, [facility] [place] [facility] [address] [id number] [place] [address]- 2076 Aug, [facility] [place] [facility] [address] [id number] [place] [address]- 0160 Jul, [facility] [place] [facility] [address] [id number] [place] [address]- 6476 Jul, [facility] [place] [facility] [address] [id number] [place] [address]- 4689 Jul, [facility] [place] [facility] [address] [id number] [place] [address]- 5842 Jul, [facility] [place] [facility] [address] [id number] [place] [address]- 6752 Jul, [facility] [place] [facility] [address] [id number] [place] [address]- 4268 Jul, [facility] [place] [facility] [address] [id number] [place] [address]- 8214 Jul, [facility] [place] [facility] [address] [id number] [place] [address]- 2727 Jul, [facility] [place] [facility] [address] [id number] [place] [address]- 3154 Jul, [facility] [address] [id number] [place] [address]- 9946 Jul, [facility] [place] [facility] [address] [id number] [place] [address]- 1537 Jul, [facility] [address] [id number] [place] [address]- 6395 Jul, [facility] [place] [facility] [address] [id number] [place] [address]- 5172 Jul, [facility] [place] [facility] [address] [id number] [place] [address]- 7905 Jul, [facility] [place] [facility] [address] [id number] [place] [address]- 3196 Jul, [facility] [place] [facility] [address] [id number] [place] [address]- 7319 Jun, [facility] [place] [facility] [address] [id number] [place] [address]- 2917 Jun, [facility] [place] [facility] [address] [id number] [place] [address]- 4340 Jun, [facility] [place] [facility] [address] [facility] [id number] [place] [address]- 1256 Jun, [facility] [place] [facility] [address] [id number] [place] [address]- 8971 May, [facility] [place] [facility] [address] [id number] [place] [address]- 6662 May, [facility] [address] [id number] [place] [id number] May, [facility] [place] [facility] [address] [id number] [place] [address]- 1847 May, [facility] [place] [facility] [address] [id number] [place] [address]- 8585 May, [facility] [place] [facility] [id number] [address]- 9146 May, [facility] [id number] 6425 May, [facility] [id number], [place] [address]- 6222 May, [facility] [address] [id number] [address]- 7579 May, [facility] [address] [id number] May, [facility] [id number] [address]- 4988 May, [facility] [address] [id number] May, [facility] [id number] [address]- 1756 May, [facility] [address] [id number] May, [facility] [address] [id number] [address]- 9401 May, IMMUNIZATIONS No Known Immunizations SOCIAL HISTORY Never Assessed REASON FOR VISIT Controlled Med Refill 05/19/2017 PLAN OF CARE VITAL SIGNS MEDICATIONS Medication Instructions Dosage Frequency Start Date End Date Duration Status Xanax 0.5 MG Orally Once a day 1 tablet at bedtime 24h Jan, 28 days Active Oxycodone-Acetaminophen 5-325 MG Orally 3 times a day 1 tablet 8h May, 28 days Active RESULTS No Results PROCEDURES [...] Diarrhea, leukocytosis--ryanrn 01/08/16 Hospitalization History pseudomemranous colitis, sepsis--[facility] 04/21/2016 Hospitalization History C Diff--[facility] 05/10/2016 Hospitalization History sepsis, pneumonia, diarrhea--[facility] 06/11/16 Hospitalization History recurrent cdiff, pneumonia-[facility] 07/22/16 Hospitalization History sepsis,pneumonia- [facility]
--- OUTSIDE RECORDS SUMMARY | 2018-03-18 20:18 | XMS REPORT ---
Author Author DAPHNE YUSUF Organization [facility] Address [address] [place] [address] Care Team Providers Care Channel Process Plant Operator Name Role Phone DAPHNE YUSUF Unavailable PROBLEMS Type Condition ICD9-CM Code [id number] Code Onset Dates Condition Status SNOMED Code Problem Hx of Clostridium difficile infection Z86.19 Active 268355808 Problem History of arthroplasty of right knee Z96.651 Active 561490391 Problem Dysphagia, unspecified dysphagia R13.10 Active 35752856 Problem Chronic pain syndrome G89.4 Active 300095177 Problem 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 431464604 Problem Anxiety F41.9 Active 30215382 Problem Leg pain, left M79.605 Active 278490706 Problem Depression, unspecified depression type F32.9 Active 35045273 Problem Iron deficiency anemia, unspecified iron deficiency anemia type D50.9 Active 41462202 Problem Anemia, unspecified type D64.9 Active 702997132 Problem Seasonal allergic rhinitis due to pollen J30.1 Active 15459907 Problem Insomnia, unspecified G47.00 Active 178498472 Problem 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 559028271 Problem History of cerebrovascular accident with current residual effects I69.90 Active 486756659 Problem Peripheral vascular disease, unspecified I73.9 Active 620448243 Problem Rheumatoid arthritis, involving unspecified site, unspecified rheumatoid factor presence M06.9 Active 70507393 Problem Other chronic pain G89.29 Active 26341115 Problem Primary insomnia F51.01 Active 9300688 Problem Chronic obstructive pulmon disease w acute lower resp infct J44.0 Active 682525111 Problem Atrial fibrillation I48.91 Active 62225398 Problem Dysthymia F34.1 Active 75752489 Problem Osteoarthritis of foot M19.079 Active 398795989 Problem Rheumatoid arthritis M06.9 Active 68351894 Problem Tobacco abuse, 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 431824722 Problem Edema R60.9 Active 848737465 Problem COPD (chronic obstructive pulmonary disease) J44.9 Active 78559441 Problem Hypertension I10 Active 28826987 ALLERGIES No Information ENCOUNTERS Encounter Location Date Diagnosis [facility] [id number] [place] [address] 39591- 3781 14 Dec, 2017 Chronic pain syndrome G89.4 [facility] [id number] [place] [address] 25484- 0925 November, Chronic pain syndrome G89.4 [facility] [address] 96511- 6665 November, [facility] [address] 33609- 8262 Oct, Chronic pain syndrome G89.4 [facility] [id number] [place] [address] 16032- 9060 Oct, [facility] [address] 21731- 9299 Oct, Chronic pain syndrome G89.4 [facility] [address] 45631- 3538 Oct, [facility] [id number] [place] [address] 65579- 3834 Oct, [facility] [id number] [place] [address] 79110- 0631 Sep, Left upper quadrant pain R10.12 ; Chronic pain syndrome G89.4 ; Left lower quadrant pain R10.32 ; Other chronic pain G89.29 ; Sacrococcygeal disorders, not elsewhere classified M53.3 and Seasonal allergic rhinitis due to pollen J30.1 [facility] [id number] [place] [address] 81899- 9008 Sep, Chronic pain syndrome G89.4 [facility] [id number] [place] [address] 08855- 3103 Sep, [facility] [address] [address] 0896 Aug, Chronic pain syndrome G89.4 [facility] [id number] [place] [address] 72278- 2287 Aug, [facility] [id number] [place] [address] 45724- 9245 Aug, Insomnia, unspecified G47.00 [facility] [id number] [place] [address] 62195- 0400 Jul, [facility] [id number] [place] [address] 26287- 0716 Jul, [facility] [id number] [place] [address] 15863- 6553 Jul, Chronic pain syndrome G89.4 [facility] [id number] [place] [address] 31211- 0829 Jun, Chronic pain syndrome G89.4 [facility] [id number] [place] [address] 38379- 2408 Jun, Chronic pain syndrome G89.4 [facility] [id number] [place] [address] 32027- 7668 May, [facility] [id number] [place] [address] 79715- 2111 May, Shortness of breath R06.02 ; Peripheral vascular disease, unspecified I73.9 ; Pain in right knee M25.561 ; Other chronic pain G89.29 ; Chest wall pain R07.89 ; Chronic pain syndrome G89.4 ; Primary insomnia F51.01 and Ear pain, left H92.02 [facility] [id number] [place] [address] 54292- 2203 06 May, 2017 Anxiety F41.9 [facility] [address] [address]- 8815 Apr, Pneumonia due to infectious organism, unspecified laterality , unspecified part of lung J18.9 ; Hypoxia R09.02 ; Bradycardia R00.1 ; History of Clostridium difficile Z87.19 and Primary insomnia F51.01 [facility] [address] 58563- 7338 Apr, Anxiety F41.9 [facility] [address] 38477- 2198 Apr, [facility] [address] 93227- 5509 Mar, Anxiety F41.9 [facility] [address] 94174- 8453 Feb, [facility] [address] 08488- 8070 Feb, [facility] [address] 92267- 6770 Feb, Abnormal finding on urinalysis R82.90 [facility] [address] 63952- 0198 Feb, [facility] [address] 26196- 9352 Feb, Shortness of breath R06.02 ; Tachycardia R00.0 ; Cough R05 ; Ill feeling R68.89 and Abnormal finding on urinalysis R82.90 [facility] [id number] [place] [address] 97158- 7774 Feb, Anxiety F41.9 [facility] [id number] [place] [address] 61146 -0577 Feb, Sore throat J02.9 and Acute diffuse otitis externa of left ear H60.312 [facility] [id number] [place] [address] 95008- 8339 Jan, [facility] [address] 51534- 4130 Jan, [facility] [id number] [id number] Jan, [facility] [id number] [place] [address] 68616- 6332 Jan, Depression, unspecified depression type F32.9 ; Chronic bronchitis, unspecified chronic bronchitis type J42 ; Chronic pain syndrome G89.4 and Anxiety F41.9 [facility] [id number] [place] [address] 59554- 1059 Jan, [facility] [id number] [place] [address] 00059- 9377 Jan, [facility] [id number] [place] [address] 22199- 0457 Jan, [facility] [id number] [place] [address] [id number] Jan, Chronic pain syndrome G89.4 [facility] [address] [id number] Dec, History of right knee surgery Z98.890 [facility] [id number] [place] [address] 89551- 9871 Dec, [facility] [id number] [place] [address] 23756- 5282 Dec, Chronic pain syndrome G89.4 [facility] [id number] [place] [address] 56714- 6462 November, Anxiety F41.9 [facility] [address] [address] November, Acute cystitis without hematuria N30.00 [facility] [id number] [place] [address] 92690 -2408 November, Fever, unspecified fever cause R50.9 and Acute cystitis without hematuria N30.00 [facility] [id number] [place] [address] 90740- 8326 November, Chronic pain syndrome G89.4 [facility] [address] [address]- 8234 Oct, Anxiety F41.9 [facility] [id number] [place] [address] 04051- 6158 Oct, Chronic pain syndrome G89.4 [facility] [id number] [place] [address] 65843- 2799 Oct, Chronic pain syndrome G89.4 [facility] [id number] [place] [address] 49116- 6230 Oct, [facility] [id number] [place] [address] 32565- 9469 Oct, Chronic pain syndrome G89.4 ; Pain in right knee M25.561 ; History of Clostridium difficile Z87.19 ; Iron deficiency anemia, unspecified iron deficiency anemia type D50.9 ; Peripheral vascular disease, unspecified I73.9 and Atrial fibrillation I48.91 [facility] [id number] [place] [address] 19127- 5130 Oct, [facility] [id number] [place] [address] 74645- 8830 Oct, Chronic pain syndrome G89.4 [facility] [id number] [place] [address] 06397- 1171 Sep, [facility] [id number] [place] [address] 95600- 8797 Sep, Depression, unspecified depression type F32.9 ; Chronic bronchitis, unspecified chronic bronchitis type J42 ; Chronic pain syndrome G89.4 and Anxiety F41.9 [facility] [address] [id number] Sep, History of Clostridium difficile infection Z86.19 and History of stroke Z86.73 [facility] [id number] [place] [address] [id number] Sep, Anxiety F41.9 [facility] [id number] [address]- 6502 08 Sep, 2016 Chronic pain syndrome G89.4 [facility] [id number] [place] [address] 27434- 2776 Sep, [facility] [id number] [place] [address] [id number] Sep, [facility] [id number] [place] [address] 38868- 7476 Aug, Anxiety F41.9 [facility] [id number] [place] [address] 48905- 5253 Aug, Anxiety F41.9 [facility] [id number] [place] [address] 31844- 7948 16 Aug, 2016 [facility] [id number] [place] [address] 13088- 8552 14 Aug, 2016 Acute knee pain, unspecified laterality M25.569 [facility] [id number] [place] [address] 99991- 4846 13 Aug, 2016 [facility] [id number] [place] [address] 35291- 5674 09 Aug, 2016 Chronic pain syndrome G89.4 [facility] [id number] [place] [address] 45730- 1923 Aug, [facility] [id number] [place] [address] 57731- 2826 Aug, [facility] [id number] [place] [address] 83632- 7048 Jul, [facility] [id number] [place] [address] 650335- 9181 Jul, Anxiety F41.9 [facility] [address]- 6106 Jul, Clostridium difficile diarrhea A04.7 [facility] [address] [id number] Jul, Clostridium difficile diarrhea A04.7 ; Chronic pain syndrome G89.4 ; Chronic obstructive pulmon disease w acute lower resp infct J44.0 and Pain in right knee M25.561 [facility] [id number] [id number] Jul, [facility] [address], [place] [address] Jul, Anxiety F41.9 and Chronic pain syndrome G89.4 [facility] [address], [place] [address]- 0588 Jun, Anxiety F41.9 [facility] [id number] [place] [address] 56851- 6969 Jun, Rheumatoid arthritis 714.0 [facility] [id number] [place] [address] 55228- 6219 Jun, Chronic pain syndrome G89.4 [facility] [address], [place] [address]- 3048 Jun, [facility] [id number] [place] [address] 93572- 1370 Jun, [facility] [address] [address]- 1564 Jun, History of pneumonia Z87.01 and History of Clostridium difficile Z87.19 [facility] [address], [place] [address]- 6736 Jun, [facility] [address], [place] [address]- 3078 May, [facility] [id number] [place] [address] 75700- 2282 May, Anxiety F41.9 [facility] [address], [place] [address]- 1644 May, Chronic pain syndrome G89.4 [facility] [id number] [place] [address] 29544- 9423 May, Chronic bronchitis, unspecified chronic bronchitis type J42 [facility] [id number] [place] [address] 83951- 1135 May, [facility] [id number] [place] [address] 14869- 7387 May, C. difficile diarrhea A04.7 ; Peripheral edema R60.9 ; COPD (chronic obstructive pulmonary disease) J44.9 ; Rheumatoid arthritis, involving unspecified site, unspecified rheumatoid factor presence M06.9 ; Pain in right knee M25.561 ; Pain in left knee M25.562 and Other chronic pain G89.29 [facility] [id number] [place] [address] 13300- 7346 May, [facility] [id number] [place] [address] 19562- 6041 May, [facility] [id number] [place] [address] 77106- 5590 May, Anxiety F41.9 [facility] [id number] [place] [address] 76073- 8759 Apr, [facility] [id number] [place] [address] 15698- 3228 Apr, Chronic pain syndrome G89.4 [facility] [id number] [place] [address] 62134- 0865 Apr, Leg pain, left M79.605 [facility] [id number] [place] [address] 68889- 6371 Apr, [facility] [id number] [place] [address] 27066- 7710 Apr, [facility] [id number] [place] [address] 71341- 6197 Apr, [facility] [id number] [place] [address] 16189- 2963 28 Mar, 2016 Chronic pain syndrome G89.4 [facility] [id number] [place] [address] 30217- 3255 22 Mar, 2016 Acute frontal sinusitis, recurrence not specified J01.10 [facility] [id number] [place] [address] 34148- 8479 20 Mar, 2016 Iron deficiency anemia, unspecified iron deficiency anemia type D50.9 ; Rheumatoid arthritis with positive rheumatoid factor, involving unspecified site M05.9 and Depression, unspecified depression type F32.9 [facility] [id number] [place] [address] 57512- 0038 13 Mar, 2016 Iron deficiency anemia, unspecified iron deficiency anemia type D50.9 ; Depression, unspecified depression type F32.9 and Rheumatoid arthritis with positive rheumatoid factor, involving unspecified site M05.9 [facility] [id number] [place] [address] 16080- 7147 06 Mar, 2016 [facility] [id number] [place] [address] 00163- 5681 Mar, [facility] [id number] [place] [address] 00757- 5137 Feb, Chronic pain syndrome G89.4 [facility] [id number] [place] [address] 27091- 4647 30 Feb, 2016 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 ; Status post CVA Z86.73 ; Hemiplegia G81.90 and Anemia, unspecified type D64.9 [facility] [address], [place] [address]- 7276 Feb, [facility] [id number] [place] [address] 11283- 0735 Feb, Anemia, unspecified type D64.9 [facility] [id number] [place] [address] 02913- 4988 Feb, [facility] [id number] [place] [address] 09534- 8115 Feb, Iron deficiency anemia, unspecified iron deficiency anemia type D50.9 [facility] [id number] [place] [address] 23862- 1707 Feb, [facility] [id number] [place] [address] 51730- 5985 Feb, Chronic bronchitis, unspecified chronic bronchitis type J42 [facility] [id number] [place] [address] 81163- 4366 Feb, Iron deficiency anemia, unspecified iron deficiency anemia type D50.9 [facility] [id number] [place] [address] 70946- 0520 Feb, Chronic pain syndrome G89.4 [facility] [id number] [place] [address] 50667- 6556 Feb, Anemia, unspecified type D64.9 and Hypoxia R09.02 [facility] [id number] [place] [address] 89245- 2366 Feb, Anemia, unspecified type D64.9 [facility] [id number] [place] [address] 12001- 5394 Jan, [facility] [id number] [place] [address] 02619- 8316 Jan, Anemia, unspecified type D64.9 [facility] [id number] [place] [address] 23879- 7234 Jan, [facility] [id number] [place] [address] 81799- 1766 Jan, Anemia, unspecified type D64.9 [facility] [id number] [place] [address] 88831- 7908 Jan, Anemia, unspecified type D64.9 [facility] [id number] [place] [address] 04040- 8884 Jan, [facility] [id number] [place] [address] 47214- 8361 Jan, Anemia, unspecified type D64.9 [facility] [id number] [place] [address] 39059- 8503 Jan, [facility] [id number] [place] [address] 05719- 2055 Jan, [facility] [id number] [place] [address] 08943- 9235 Jan, Chronic pain syndrome G89.4 [facility] [id number] [place] [address] 23142- 0489 Jan, Anemia, unspecified type D64.9 [facility] [id number] [place] [address] 89019- 5965 Jan, Dysthymia F34.1 ; Cervicalgia M54.2 ; Fatigue, unspecified type R53.83 and Depression, unspecified depression type F32.9 [facility] [id number] [place] [address] 84652- 3420 Dec, [facility] [id number] [place] [address] 65206- 4507 Dec, Anxiety F41.9 [facility] [id number] [place] [address] 62017- 0364 Dec, Chronic pain syndrome G89.4 [facility] [id number] [place] [address] 83344- 4344 November, [facility] [id number] [place] [address] 28791- 3980 November, Edema R60.9 and Dizziness R42 [facility] [id number] [place] [address] 64789- 4602 November, [facility] [id number] [place] [address] 98205- 5473 November, [facility] [id number] [address]- 7797 November, COPD (chronic obstructive pulmonary disease) J44.9 ; Increased tracheal secretions J39.8 and Edema R60.9 [facility] [id number] [place] [address] 14450 -7090 29 Oct, 2015 [facility] [id number] [place] [address] 07239 -3676 Oct, Shortness of breath R06.02 and Edema R60.9 [facility] [id number] [place] [address] 23120- 6156 Oct, Chronic bronchitis, unspecified chronic bronchitis type J42 ; Peripheral vascular disease, unspecified I73.9 ; Rheumatoid arthritis M06.9 and Atrial fibrillation I48.91 [facility] [id number] [place] [address] 48586- 5804 Oct, [facility] [id number] [place] [address] 21180- 6904 Oct, [facility] [id number] [place] [address] 61531- 0235 Oct, [facility] [id number] [place] [address] 76668- 9208 Oct, [facility] [id number] [place] [address] 01727 -9795 Oct, COPD exacerbation J44.1 [facility] [id number] [place] [address] 90897- 6853 Sep, [facility] [id number] [place] [address] 23119- 3006 Sep, [facility] [id number] [place] [address] 69295- 3876 16 Sep, 2015 [facility] [id number] [place] [address] 88825- 4065 Aug, [facility] [id number] [address] Aug, 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 and PVD (peripheral vascular disease ) I73.9 [facility] [id number] [place] [address] 13656- 0812 Aug, Bronchitis J40 ; COPD (chronic obstructive pulmonary disease ) J44.9 and Dysthymia F34.1 [facility] [id number] [place] [address] 81962- 9189 Aug, [facility] [id number] [place] [address] 07856- 8073 Jul, [facility] [id number] [place] [address] 84486- 4558 Jul, [facility] [id number] [place] [address] 73611- 0942 Jul, [facility] [id number] [place] [address] 55629- 8889 Jun, [facility] [id number] [place] [address] 42329- 7396 Jun, [facility] [id number] [place] [address] 09094- 8124 Jun, Peripheral vascular disease I73.9 [facility] [id number] [place] [address] 56864- 8834 Jun, [facility] [id number] [place] [address] 84494- 2543 Jun, [facility] [id number] [place] [address] 63042- 1546 Jun, Leg pain, left M79.605 ; Dysphagia, unspecified dysphagia R13.10 ; Insomnia, unspecified type G47.00 ; PVD (peripheral vascular disease) I73.9 and 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 [facility] [id number] [place] [address] [place] [address]- [address]98 May, [facility] [address] [facility] [id number] [address] May, [facility] [id number] [address] May, [facility] [address] [id number] [address] May, [facility] [id number] [place] [address] 35993- 6673 May, [facility] [id number] [place] [address] 37328- 2770 Apr, [facility] [id number] [place] [address] 32214- 3515 Apr, [facility] [id number] [place] [address] 74961- 9391 Mar, [facility] [id number] [address] 1785 Mar, [facility] [id number] [address] 0921 Feb, [facility] [id number] [address] 0759 Feb, Nicotine abuse 305.1 ; Arthralgia 719.40 and 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 [facility] [id number] [address] 04[address] Feb, [facility] [id number] [address] 5565 Jan, [facility] [id number], [place] [address] 6749 Jan, [facility] [id number] [address] 8919 Jan, [facility] [id number], [place] [address] 7218 Jan, [facility] [id number] [place] [address] 837285- 8230 Jan, 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 ; Rheumatoid arthritis 714.0 ; Hypertension 401.9 ; GERD (gastroesophageal reflux disease) 530.81 ; Nicotine addiction 305.1 and Leukocytosis 288.60 [facility] [id number] [place] [address] 15799- 3983 Jan, [facility] [id number] [place] [address] 82556- 4968 Jan, [facility] [id number] [place] [address] 65638- 4433 Jan, [facility] [id number] [place] [address] 63808- 7831 Jan, [facility] [id number] [place] [address] 168288- 5524 Jan, [facility] [id number] [place] [address] 83476- 1032 Dec, [facility] [id number] [place] [address] 456045- 4708 Dec, [facility] [id number] [place] [address] 33971- 1680 Dec, [facility] [id number] [place] [address] 69542- 7951 Dec, [facility] [id number] [place] [address] 85479- 7414 November, [facility] [id number] [place] [address] 20985- 7236 November, [facility] [address] [address]- 7362 November, Shortness of breath 786.05 [facility] [id number] [place] [address] 68044- 1853 November, Rheumatoid arthritis 714.0 [facility] [id number] [place] [address] 03658- 4868 November, 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 [facility] [id number] [address]- 0246 November, Neuropathy 355.9 ; Insomnia 780.52 ; Dysthymia 300.4 ; Shortness of breath 786.05 ; Rheumatoid arthritis 714.0 and Nausea 787.02 [facility] [id number], [place] [address]- 3241 November, [facility] [id number] [place] [address] 33189- 6461 November, [facility] [id number] [place] [address] 21082- 7121 Oct, [facility] [id number] [place] [address] 17078- 0928 Oct, [facility] [id number] [place] [address] 55147- 0011 Oct, [facility] [id number] [place] [address] 48623- 5143 Oct, [facility] [address], [place] [address]- 2876 Sep, [facility] [id number] [place] [address] 07453- 3528 Sep, [facility] [address], [place] [address]- 8023 Sep, [facility] [id number] [place] [address] 27933- 4870 Sep, [facility] [address] 7535 Sep, [facility] [id number] [place] [address] 64778- 9420 Sep, [facility] [place] [facility] [address] [id number] [place] [address]- 7938 Sep, [facility] [place] [facility] [address] [id number] [place] [address]- 0146 Sep, [facility] [place] [facility] [address] [id number] [place] [address]- 3818 Aug, [facility] [place] [facility] [address] [id number] [place] [address]- 0817 Aug, [facility] [place] [facility] [address] [id number] [place] [address]- 1672 Aug, [facility] [place] [facility] [address] [id number] [place] [address]- 6653 Aug, [facility] [place] [facility] [address] [id number] [place] [address]- 6409 Aug, [facility] [place] [facility] [address] [id number] [place] [address]- 3202 Aug, [facility] [place] [facility] [address] [id number] [place] [address]- 2286 Jul, [facility] [place] [facility] [address] [id number] [place] [address]- 8849 Jul, [facility] [place] [facility] [address] [id number] [place] [address]- 8843 Jul, [facility] [place] [facility] [address] [id number] [place] [address]- 9650 Jul, [facility] [place] [facility] [address] [id number] [place] [address]- 5406 Jul, [facility] [place] [facility] [address] [id number] [place] [address]- 6299 Jul, [facility] [place] [facility] [address] [id number] [address]- 2486 Jul, [facility] [place] [facility] [address] [id number] [place] [address]- 5502 Jul, [facility] [place] [facility] [address] [id number] [place] [address]- 8611 Jul, [facility] [place] [facility] [address] [id number] [place] [address]- 9022 Jul, [facility] [place] [facility] [address] [id number] [place] [address]- 5577 Jun, [facility] [place] [facility] [address] [id number] [place] [address]- 2073 Jun, [facility] [place] [facility] [address] [id number] [place] [address]- 4900 Jun, [facility] [place] [facility] [address] [id number] [place] [address]- 4571 Jun, [facility] [place] [facility] [address] [id number] [place] [address]- 6071 Jun, [facility] [place] [facility] [address] [id number] [place] [address]- 7053 Jun, [facility] [place] [facility] [address] [id number] [place] [address]- 3878 Jun, [facility] [place] [facility] [address] [id number] [place] [address]- 9347 Jun, [facility] [place] [facility] [address] [id number] [place] [address]- 0872 Jun, [facility] [place] [facility] [address] [id number] [place] [address]- 9661 Jun, [facility] [place] [facility] [address] [id number] [place] [address]- 1326 Jun, [facility] [place] [facility] [address] [id number] [place] 9550 Jun, [facility] [place] [facility] [address] [id number] [place] [address]- 7513 Jun, [facility] [place] [facility] [address] [id number] [place] [address]- 4084 Jun, [facility] [place] [facility] [address] [id number] [place] 7228 Jun, [facility] [place] [facility] [address] [id number] [place] [address]- 1017 Jun, [facility] [place] [facility] [address] [id number] [place] [address]- 3142 May, [facility] [place] [facility] [address] [id number] [place] [address]- 9821 May, [facility] [place] [facility] [address] [id number] [place] [address]- 8048 May, [facility] [place] [facility] [address] [id number] [place] [address]- 3748 May, [facility] [place] [facility] [address] [id number] [place] [address]- 7008 May, [facility] [place] [facility] [address] [id number] [place] [address]- 1741 May, [facility] [place] [facility] [address] [id number] [place] [address]- 3124 May, [facility] [place] [facility] [address] [id number] [address]- 8222 May, [facility] [place] [facility] [address] [id number], [place] [address]- 1783 May, [facility] [place] [facility] [address] [id number] [place] [address]- 5080 Apr, [facility] [place] [facility] [address] [id number] [place] [address]- 0108 Apr, [facility] [place] [facility] [address] [id number] [place] [address]- 1691 Apr, [facility] [place] [facility] [address] [id number] [place] [address]- 2997 13 Apr, 2013 [facility] [place] [facility] [address] [id number] [place] [address]- 6247 10 Apr, 2014 [facility] [place] [facility] [address] [id number] [place] [address]- 7395 10 Apr, 2014 [facility] [place] [facility] [address] [id number] [place] [address]- 8158 Apr, 2013 [facility] [place] [facility] [address] [id number] [place] [address]- 7736 Apr, 2013 [facility] [place] [facility] [address] [id number] [place] [address]- 9647 Apr, [facility] [place] [facility] [address] [id number] [place] [address]- 9130 Apr, [facility] [place] [facility] [address] [id number] [place] [address]- 5828 Apr, [facility] [place] [facility] [address] [id number] [place] [address]- 1633 Apr, [facility] [place] [facility] [address] [id number] [place] [address]- 4406 22 Mar, 2013 [facility] [place] [facility] [address] [id number] [place] [address]- 4440 22 Mar, 2013 [facility] [place] [facility] [address] [id number] [place] [address]- 1884 19 Mar, 2013 [facility] [place] [facility] [address] [id number] [place] [address]- 2543 19 Mar, 2013 [facility] [place] [facility] [address] [id number] [place] [address]- 0261 11 Mar, 2013 [facility] [place] [facility] [address] [id number] [place] [address]- 5584 11 Mar, 2013 [facility] [place] [facility] [address] [id number] [place] [address]- 8211 Mar, [facility] [place] [facility] [address] [id number] [place] [address]- 7599 Mar, [facility] [place] [facility] [address] [id number] [place] [address]- 2739 Mar, [facility] [place] [facility] [address] [id number] [place] [address]- 0761 Mar, [facility] [place] [facility] [address] [id number] [place] [address]- 8234 Feb, [facility] [place] [facility] [address] [id number] [place] [address]- 6712 Feb, [facility] [place] [facility] [address] [id number] [place] [address]- 7781 Feb, [facility] [place] [facility] [address] [id number] [place] [address]- 0920 Feb, [facility] [place] [facility] [address] [id number] [place] [address]- 2822 Feb, [facility] [place] [facility] [address] [id number] [place] [address]- 2633 Feb, [facility] [place] [facility] [address] [id number] [place] [address]- 6814 Feb, [facility] [place] [facility] [address] [id number] [place] [address]- 0866 Feb, [facility] [place] [facility] [address] [id number] [place] [address]- 2909 Feb, [facility] [place] [facility] [address] [id number] [place] [address]- 6807 Feb, [facility] [place] [facility] [address] [id number] [place] [address]- 3115 Feb, [facility] [place] [facility] [address] [id number] [place] [address]- 6679 Feb, [facility] [place] [facility] [address] [id number] [place] [address]- 9050 Feb, [facility] [place] [facility] [address] [id number] [place] [address]- 6701 Feb, [facility] [place] [facility] [address] [id number] [place] [address]- 1474 Feb, [facility] [place] [facility] [address] [id number] [place] [address]- 3773 Feb, [facility] [place] [facility] [address] [id number] [place] [address]- 4041 Jan, [facility] [place] [facility] [address] [id number] [place] [address]- 8388 Jan, [facility] [place] [facility] [address] [id number] [place] [address]- 1570 Jan, [facility] [place] [facility] [address] [id number] [place] [address]- 9438 Jan, [facility] [place] [facility] [address] [id number] [place] [address]- 4103 Jan, [facility] [place] [facility] [address] [id number] [place] [address]- 2304 Jan, [facility] [place] [facility] [address] [id number] [place] [address]- 8774 Dec, [facility] [place] [facility] [address] [id number] [place] [address]- 4778 Dec, [facility] [place] [facility] [address] [id number] [place] [address]- 3738 Dec, [facility] [place] [facility] [address] [id number] [place] [address]- 9551 Dec, [facility] [place] [facility] [address] [id number] [place] [address]- 0456 Dec, [facility] [place] [facility] [address] [id number] [place] [address]- 1910 Dec, [facility] [place] [facility] [address] [id number] [place] [address]- 1200 Dec, [facility] [place] [facility] [address] [id number] [place] [address]- 5735 Dec, [facility] [place] [facility] [address] [id number] [place] [address]- 4468 November, [facility] [place] [facility] [address] [id number] [place] [address]- 7494 November, [facility] [place] [facility] [address] [id number] [place] [address]- 5552 November, [facility] [place] [facility] [address] [id number] [place] [address]- 3414 November, [facility] [place] [facility] [address] [id number] [place] [address]- 6674 November, [facility] [place] [facility] [address] [id number] [place] [address]- 9812 November, [facility] [place] [facility] [address] [id number] [place] [address]- 3228 Oct, [facility] [place] [facility] [address] [id number] [place] [address]- 3843 Oct, [facility] [place] [facility] [address] [id number] [place] [address]- 3199 Oct, [facility] [place] [facility] [address] [id number] [place] [address]- 2423 Oct, [facility] [place] [facility] [address] [id number] [place] [address]- 9967 Sep, [facility] [place] [facility] [address] [id number] [place] [address]- 5239 Sep, [facility] [place] [facility] [address] [id number] [place] [address]- 4320 Sep, [facility] [place] [facility] [address] [id number] [place] [address]- 6483 Sep, [facility] [place] [facility] [address] [id number] [place] [address]- 9801 Sep, [facility] [place] [facility] [address] [id number] [place] [address]- 5120 Sep, [facility] [place] [facility] [address] [id number] [place] [address]- 2084 Aug, [facility] [place] [facility] [address] [id number] [place] [address]- 2429 Aug, [facility] [place] [facility] [address] [id number] [place] [address]- 0449 Aug, [facility] [place] [facility] [address] [id number] [place] [address]- 5932 Aug, [facility] [place] [facility] [address] [id number] [place] [address]- 7761 Aug, [facility] [place] [facility] [address] [id number] [place] [address]- 1911 Aug, [facility] [place] [facility] [address] [id number] [place] [address]- 4389 Jul, [facility] [place] [facility] [address] [id number] [place] [address]- 5631 Jul, [facility] [place] [facility] [address] [id number] [place] [address]- 8154 Jul, [facility] [place] [facility] [address] [id number] [place] [address]- 8233 Jul, [facility] [place] [facility] [address] [id number] [place] [address]- 1111 Jul, [facility] [place] [facility] [address] [id number] [place] [address]- 8885 Jul, [facility] [place] [facility] [address] [id number] [place] [address]- 2150 Jul, [facility] [place] [facility] [address] [id number] [place] [address]- 9008 Jul, [facility] [address] [id number] [place] [address]- 0472 Jul, [facility] [address] [id number] [place] [address]- 5234 Jul, [facility] [address] [id number] [place] [address]- 0901 Jul, [facility] [address] [id number] [place] [address]- 3169 Jul, [facility] [address] [id number] [place] [address]- 1109 Jul, [facility] [address] [id number] [place] [address]- 8617 Jul, [facility] [address] [id number] [place] [address]- 3847 Jul, [facility] [address] [id number] [place] [address]- 8240 Jun, [facility] [address] [id number] [place] [address]- 5559 Jun, [facility] [address] [id number] [place] [address]- 9096 Jun, [facility] [address] [id number] [place] [address]- 4796 Jun, [facility] [address] [id number] [place] [address]- 2772 May, [facility] [address] [id number] [place] [address]- 1884 May, [facility] [address] [id number] [place] [id number] May, [facility] [address] [id number], [place] [address]- 0577 May, [facility] [id number] [address]- 5466 May, [facility] [address] [address]- 3786 May, [facility] [address] [address]- 1118 May, [facility] [address] [address]- 5614 May, [facility] [address], [place] [address]- 5081 May, [facility] [id number] [place] [address] [id number] May, [facility] [address], [place] [address]- 7106 May, [facility] [id number] [place] [address] [id number] May, [facility] [address] [id number], [place] [address]- 7056 May, [facility] [id number] [id number] May, [facility] [address] [id number], [place] [address]- 7016 May, IMMUNIZATIONS No Known Immunizations SOCIAL HISTORY Never Assessed REASON FOR VISIT Controlled Med Refill 09/08/17 PLAN OF CARE VITAL SIGNS MEDICATIONS Medication Instructions Dosage Frequency Start Date End Date Duration Status Oxycodone-Acetaminophen 5-325 MG Orally 2 times a day 1 tablet 12h Aug, 28 days Active RESULTS No Results PROCEDURES [...] 01/08/16 Hospitalization History pseudomemranous colitis, sepsis--[facility] 04/21/2016 Hospitalization History C Diff--[facility] 05/10/2016 Hospitalization History sepsis, pneumonia, diarrhea--[facility] 06/11/16 Hospitalization History recurrent cdiff, pneumonia-[facility] 07/22/16 Hospitalization History sepsis,pneumonia- [facility]
--- OUTSIDE RECORDS SUMMARY | 2018-03-18 20:19 | XMS REPORT ---
Author Author DAPHNE YUSUF Organization [facility] Address [address] [place] [address] Care Team Providers Care Tower Hand Name Role Phone DAPHNE YUSUF Unavailable PROBLEMS Type Condition ICD9-CM Code VXV23-EO Code Onset Dates Condition Status SNOMED Code Problem Hx of Clostridium difficile infection Z86.19 Active 520235069 Problem History of arthroplasty of right knee Z96.651 Active 483032405 Problem Dysphagia, unspecified dysphagia R13.10 Active 55285842 Problem Chronic pain syndrome G89.4 Active 327743678 Problem 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 977773915 Problem Anxiety F41.9 Active 36767241 Problem Leg pain, left M79.605 Active 691982907 Problem Depression, unspecified depression type F32.9 Active 98494912 Problem Iron deficiency anemia, unspecified iron deficiency anemia type D50.9 Active 19893901 Problem Anemia, unspecified type D64.9 Active 185957943 Problem Seasonal allergic rhinitis due to pollen J30.1 Active 87718117 Problem Insomnia, unspecified G47.00 Active 065922520 Problem 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 409708790 Problem History of cerebrovascular accident with current residual effects I69.90 Active 435181488 Problem Peripheral vascular disease, unspecified I73.9 Active 365026467 Problem Rheumatoid arthritis, involving unspecified site, unspecified rheumatoid factor presence M06.9 Active 82249576 Problem Other chronic pain G89.29 Active 42324602 Problem Primary insomnia F51.01 Active 3756516 Problem Chronic obstructive pulmon disease w acute lower resp infct J44.0 Active 429284943 Problem Atrial fibrillation I48.91 Active 27692854 Problem Dysthymia F34.1 Active 64545432 Problem Osteoarthritis of foot M19.079 Active 540816107 Problem Rheumatoid arthritis M06.9 Active 06373215 Problem Tobacco abuse, 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 529147949 Problem Edema R60.9 Active 000661885 Problem COPD (chronic obstructive pulmonary disease) J44.9 Active 57086589 Problem Hypertension I10 Active 22544516 ALLERGIES No Information ENCOUNTERS Encounter Location Date Diagnosis [facility] [id number] [place] [address] 36817- 8699 November, Chronic pain syndrome G89.4 [facility] [address] 14826- 3638 November, [facility] [address] 58938- 0524 Oct, Chronic pain syndrome G89.4 [facility] [address] 27640- 1838 Oct, [facility] [address] 49453- 7250 Oct, Chronic pain syndrome G89.4 [facility] [address] 44258- 3811 Oct, [facility] [address] 87080- 1179 Oct, [facility] [id number] [place] [address] 24399- 7851 Sep, Left upper quadrant pain R10.12 ; Chronic pain syndrome G89.4 ; Left lower quadrant pain R10.32 ; Other chronic pain G89.29 ; Sacrococcygeal disorders, not elsewhere classified M53.3 and Seasonal allergic rhinitis due to pollen J30.1 [facility] [id number] [place] [address] 72052- 0020 Sep, Chronic pain syndrome G89.4 [facility] [address] 58351- 7276 Sep, [facility] [id number] [place] [address] 13591- 8278 Aug, Chronic pain syndrome G89.4 [facility] [address] [address] 03[address] Aug, [facility] [id number] [place] [address] 81157- 7597 Aug, Insomnia, unspecified G47.00 [facility] [id number] [place] [address] 02541- 0601 Jul, [facility] [id number] [place] [address] 64562- 9078 Jul, [facility] [id number] [place] [address] 71766- 4449 Jul, Chronic pain syndrome G89.4 [facility] [id number] [place] [address] 24960- 7602 Jun, Chronic pain syndrome G89.4 [facility] [id number] [place] [address] 48203- 2078 Jun, Chronic pain syndrome G89.4 [facility] [id number] [place] [address] 42681- 8955 May, [facility] [id number] [place] [address] 74802- 5503 May, Shortness of breath R06.02 ; Peripheral vascular disease, unspecified I73.9 ; Pain in right knee M25.561 ; Other chronic pain G89.29 ; Chest wall pain R07.89 ; Chronic pain syndrome G89.4 ; Primary insomnia F51.01 and Ear pain, left H92.02 [facility] [id number] [place] [address] 75593- 7304 06 May, 2017 Anxiety F41.9 [facility] [id number] [place] [address] 30570- 9566 09 Apr, 2017 Pneumonia due to infectious organism, unspecified laterality , unspecified part of lung J18.9 ; Hypoxia R09.02 ; Bradycardia R00.1 ; History of Clostridium difficile Z87.19 and Primary insomnia F51.01 [facility] [id number] [place] [address] 06082- 2322 Apr, Anxiety F41.9 [facility] [address] 04269- 5370 Apr, [facility] [id number] [place] [address] 58113- 2940 Mar, Anxiety F41.9 [facility] [address] 00591- 2870 Feb, [facility] [address] 90766- 7813 Feb, [facility] [address] 68295- 0440 Feb, Abnormal finding on urinalysis R82.90 [facility] [address] 84324- 9139 Feb, [facility] [address] 41621- 4088 Feb, Shortness of breath R06.02 ; Tachycardia R00.0 ; Cough R05 ; Ill feeling R68.89 and Abnormal finding on urinalysis R82.90 [facility] [id number] [place] [address] 90491- 3082 Feb, Anxiety F41.9 [facility] [id number] [place] [address] 16284 -5653 Feb, Sore throat J02.9 and Acute diffuse otitis externa of left ear H60.312 [facility] [address] 81562- 0262 Jan, [facility] [address] 32679- 8860 Jan, [facility] [address] [id number] Jan, [facility] [id number] [place] [address] 22400- 0882 17 Jan, 2017 Depression, unspecified depression type F32.9 ; Chronic bronchitis, unspecified chronic bronchitis type J42 ; Chronic pain syndrome G89.4 and Anxiety F41.9 [facility] [address] [address]- 1387 14 Jan, 2017 [facility] [id number] [place] [address] 03885- 7194 Jan, [facility] [id number] [place] [address] 58158- 2126 Jan, [facility] [id number] [place] [address] [id number] Jan, Chronic pain syndrome G89.4 [employer] [address] [place] [id number] Dec, History of right knee surgery Z98.890 [facility] [address] [place] [address] 12369- 6629 Dec, [facility] [address] [place] [address] 66691- 9279 Dec, Chronic pain syndrome G89.4 [facility] [address] [place] [address] 49547- 5622 November, Anxiety F41.9 [facility] [id number] [place] [address] 46371 -1751 November, Acute cystitis without hematuria N30.00 [facility] [id number] [place] [address] 13859 -7341 November, Fever, unspecified fever cause R50.9 and Acute cystitis without hematuria N30.00 [facility] [address] [place] [address] 21899- 3184 November, Chronic pain syndrome G89.4 [facility] [id number] [place] [address] 28567- 8930 Oct, Anxiety F41.9 [facility] [address] [address]- 4101 Oct, Chronic pain syndrome G89.4 [facility] [id number] [place] [address] 65125- 0944 Oct, Chronic pain syndrome G89.4 [facility] [address] [place] [address] 27066- 5676 Oct, [facility] [id number] [place] [address] 57847- 2472 Oct, Chronic pain syndrome G89.4 ; Pain in right knee M25.561 ; History of Clostridium difficile Z87.19 ; Iron deficiency anemia, unspecified iron deficiency anemia type D50.9 ; Peripheral vascular disease, unspecified I73.9 and Atrial fibrillation I48.91 [facility] [address] [place] [address] 78969- 2686 Oct, [facility] [id number] [place] [address] 23033- 5694 Oct, Chronic pain syndrome G89.4 [facility] [id number] [place] [address] 49307- 6574 Sep, [facility] [id number] [place] [address] 33226- 8705 Sep, Depression, unspecified depression type F32.9 ; Chronic bronchitis, unspecified chronic bronchitis type J42 ; Chronic pain syndrome G89.4 and Anxiety F41.9 [employer] [address] [place] [id number] Sep, History of Clostridium difficile infection Z86.19 and History of stroke Z86.73 [facility] [id number] [place] [address] [id number] Sep, Anxiety F41.9 [facility] [id number] [place] [address] 10744- 4721 Sep, Chronic pain syndrome G89.4 [facility] [id number] [place] [address] 81427- 0629 Sep, [facility] [id number] [place] [address] [id number] Sep, [facility] [id number] [place] [address] 99908- 2050 Aug, Anxiety F41.9 [facility] [id number] [place] [address] 16388- 7129 Aug, Anxiety F41.9 [facility] [id number] [place] [address] 37219- 5118 Aug, [facility] [id number] [place] [address] 74913- 7946 14 Aug, 2016 Acute knee pain, unspecified laterality M25.569 [facility] [id number] [place] [address] 00833- 3876 Aug, [facility] [id number] [place] [address] 95093- 0254 Aug, Chronic pain syndrome G89.4 [facility] [id number] [place] [address] 77203- 6506 Aug, [facility] [id number] [place] [address] 96603- 0950 Aug, [facility] [id number] [place] [address] 32892- 3693 Jul, [facility] [id number] [place] [address] 34673- 7848 Jul, Anxiety F41.9 [facility] [id number] [place] [address] 03430- 3264 Jul, Clostridium difficile diarrhea A04.7 [employer] [address] [place] [id number] Jul, Clostridium difficile diarrhea A04.7 ; Chronic pain syndrome G89.4 ; Chronic obstructive pulmon disease w acute lower resp infct J44.0 and Pain in right knee M25.561 [facility] [id number] [place] [address] [id number] Jul, [facility] [id number] [place] [address] 84351 -9773 Jul, Anxiety F41.9 and Chronic pain syndrome G89.4 [facility] [id number] [place] [address] 98452- 8496 Jun, Anxiety F41.9 [facility] [id number] [place] [address] 42835- 7006 Jun, Rheumatoid arthritis 714.0 [facility] [id number] [place] [address] 57123- 7100 Jun, Chronic pain syndrome G89.4 [facility] [id number] [place] [address] 94094- 9716 Jun, [facility] [id number] [place] [address] 40342- 9985 Jun, [facility] [id number] [place] [address] 28734- 6175 Jun, History of pneumonia Z87.01 and History of Clostridium difficile Z87.19 [facility] [id number] [place] [address] 03891- 0822 Jun, [facility] [id number] [place] [address] 71894- 4951 May, [facility] [id number] [place] [address] 28485 2540 May, Anxiety F41.9 [facility] [id number] [place] [address] 73690- 8094 May, Chronic pain syndrome G89.4 [facility] [id number] [place] [address] 10431- 4037 May, Chronic bronchitis, unspecified chronic bronchitis type J42 [facility] [id number] [address]- 7855 May, [facility] [id number] [place] [address] 31289- 3796 May, C. difficile diarrhea A04.7 ; Peripheral edema R60.9 ; COPD (chronic obstructive pulmonary disease) J44.9 ; Rheumatoid arthritis, involving unspecified site, unspecified rheumatoid factor presence M06.9 ; Pain in right knee M25.561 ; Pain in left knee M25.562 and Other chronic pain G89.29 [facility] [id number] [place] [address] 16774- 4948 May, [facility] [id number] [place] [address] 69188- 1120 May, [facility] [id number] [place] [address] 31121- 4397 May, Anxiety F41.9 [facility] [id number] [place] [address] 54575- 5273 Apr, [facility] [id number] [place] [address] 08846- 9823 Apr, Chronic pain syndrome G89.4 [facility] [id number] [place] [address] 53825- 9288 Apr, Leg pain, left M79.605 [facility] [id number] [place] [address] 49865- 4624 Apr, [facility] [address] [place] [address] 97053- 8748 Apr, [facility] [id number] [place] [address] 11906- 8393 Apr, [facility] [id number] [address]- 4362 Mar, Chronic pain syndrome G89.4 [facility] [id number] [place] [address] 21846- 1720 Mar, Acute frontal sinusitis, recurrence not specified J01.10 [facility] [address] [place] [address] 36924- 8574 Mar, Iron deficiency anemia, unspecified iron deficiency anemia type D50.9 ; Rheumatoid arthritis with positive rheumatoid factor, involving unspecified site M05.9 and Depression, unspecified depression type F32.9 [facility] [id number] [place] [address] 99754- 6633 Mar, Iron deficiency anemia, unspecified iron deficiency anemia type D50.9 ; Depression, unspecified depression type F32.9 and Rheumatoid arthritis with positive rheumatoid factor, involving unspecified site M05.9 [facility] [id number] [place] [address] 61517- 6454 Mar, [facility] [id number] [place] [address] 05402- 5932 Mar, [facility] [id number] [place] [address] 65762- 8743 Feb, Chronic pain syndrome G89.4 [facility] [id number] [place] [address] 17488- 7579 30 Feb, 2016 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 ; Status post CVA Z86.73 ; Hemiplegia G81.90 and Anemia, unspecified type D64.9 [facility] [address] [place] [address] 23984- 7144 Feb, [facility] [id number] [place] [address] 49942- 7192 Feb, Anemia, unspecified type D64.9 [facility] [id number] [place] [address] 62994- 9136 Feb, [facility] [id number] [place] [address] 08134- 4799 Feb, Iron deficiency anemia, unspecified iron deficiency anemia type D50.9 [facility] [address] [address]- 6861 Feb, [facility] [id number] [place] [address] 79134- 4658 Feb, Chronic bronchitis, unspecified chronic bronchitis type J42 [facility] [address] [place] [address] 41097- 8336 Feb, Iron deficiency anemia, unspecified iron deficiency anemia type D50.9 [facility] [id number] [place] [address] 09180- 7290 Feb, Chronic pain syndrome G89.4 [facility] [id number] [place] [address] 05762- 2357 Feb, Anemia, unspecified type D64.9 and Hypoxia R09.02 [facility] [id number] [place] [address] 59447- 9328 Feb, Anemia, unspecified type D64.9 [facility] [address] [address]- 5348 Jan, [facility] [id number] [place] [address] 42711- 7807 Jan, Anemia, unspecified type D64.9 [facility] [address] [address]- 8556 Jan, [facility] [id number] [place] [address] 48348- 1827 Jan, Anemia, unspecified type D64.9 [facility] [address] [address]- 6319 Jan, Anemia, unspecified type D64.9 [facility] [address] [address]- 4096 Jan, [facility] [address] [address]- 6244 Jan, Anemia, unspecified type D64.9 [facility] [address] [place] [address] 55296- 3187 Jan, [facility] [id number] [place] [address] 19080- 2523 Jan, [facility] [id number] [place] [address] 91406- 0456 Jan, Chronic pain syndrome G89.4 [facility] [id number] [place] [address] 77829- 5039 Jan, Anemia, unspecified type D64.9 [facility] [id number] [place] [address] 62374- 9011 Jan, Dysthymia F34.1 ; Cervicalgia M54.2 ; Fatigue, unspecified type R53.83 and Depression, unspecified depression type F32.9 [facility] [id number] [place] [address] 46576- 3779 Dec, [facility] [id number] [place] [address] 76489- 4155 Dec, Anxiety F41.9 [facility] [address] 20846- 5495 Dec, Chronic pain syndrome G89.4 [facility] [id number] [place] [address] 75601- 0064 November, [facility] [id number] [place] [address] 33145- 9716 November, Edema R60.9 and Dizziness R42 [facility] [id number] [place] [address] 15569- 5051 November, [facility] [id number] [place] [address] 80075- 7823 November, [facility] [id number] [place] [address] 95266- 7015 November, COPD (chronic obstructive pulmonary disease) J44.9 ; Increased tracheal secretions J39.8 and Edema R60.9 [facility] [id number] [place] [address] 23726 -2974 29 Oct, 2015 [facility] [id number] [place] [address] 81598 -3422 28 Oct, 2015 Shortness of breath R06.02 and Edema R60.9 [facility] [address] 84276- 8439 20 Oct, 2015 Chronic bronchitis, unspecified chronic bronchitis type J42 ; Peripheral vascular disease, unspecified I73.9 ; Rheumatoid arthritis M06.9 and Atrial fibrillation I48.91 [facility] [address] 82713- 9922 Oct, [facility] [id number] [place] [address] 80732- 1979 Oct, [facility] [id number] [place] [address] 79016- 0580 Oct, [facility] [id number] [place] [address] 96592- 8703 Oct, [facility] [id number] [place] [address] 47953 -9207 Oct, COPD exacerbation J44.1 [facility] [id number] [place] [address] 20522- 8148 Sep, [facility] [id number] [place] [address] 74263- 0291 Sep, [facility] [id number] [place] [address] 23111- 0637 16 Sep, 2015 [facility] [id number] [place] [address] 21574- 9586 17 Aug, 2015 [facility] [id number] [place] [address] 00947- 5826 16 Aug, 2015 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 and PVD (peripheral vascular disease ) I73.9 [facility] [id number] [place] [address] 65182- 8347 Aug, Bronchitis J40 ; COPD (chronic obstructive pulmonary disease ) J44.9 and Dysthymia F34.1 [facility] [id number] [place] [address] 06125- 2676 Aug, [facility] [address] 45319- 6036 Jul, [facility] [id number] [place] [address] 68615- 3162 Jul, [facility] [id number] [place] [address] 64700- 2255 Jul, [facility] [id number] [place] [address] 08166- 2051 Jun, [facility] [id number] [place] [address] 48908- 4594 Jun, [facility] [id number] [place] [address] 70334- 2310 Jun, Peripheral vascular disease I73.9 [facility] [id number] [place] [address] 19700- 4469 Jun, [facility] [id number] [place] [address] 95858- 3008 Jun, [facility] [id number] [place] [address] 92999- 2542 Jun, Leg pain, left M79.605 ; Dysphagia, unspecified dysphagia R13.10 ; Insomnia, unspecified type G47.00 ; PVD (peripheral vascular disease) I73.9 and 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 [facility] [id number] [place] [address] 10964- 0390 May, [facility] [address] 70022- 3847 May, [facility] [id number] [place] [address] May, [facility] [id number] [place] [address] 32857- 9945 May, [facility] [id number] [address] [address] May, [facility] [address] [facility] [id number] [place] [address] 91653- 5980 Apr, [facility] [id number] [place] [address] 82705- 8043 Apr, [facility] [id number] [place] [address] 36917- 3036 Mar, [facility] [id number] [place] [address] 47391- 3206 Mar, [facility] [id number] [place] [address] 67326- 1355 Feb, [facility] [id number] [place] [address] 18120- 1154 Feb, Nicotine abuse 305.1 ; Arthralgia 719.40 and 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 [facility] [id number] [address] 7829 Feb, [facility] [id number] [address] 3556 Jan, [facility] [id number] [address] 6373 Jan, [facility] [address] [id number] [address]- 4468 Jan, [facility] [id number] [address] 24[address] Jan, [facility] [id number] [place] [address] 81771- 9120 Jan, 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 ; Rheumatoid arthritis 714.0 ; Hypertension 401.9 ; GERD (gastroesophageal reflux disease) 530.81 ; Nicotine addiction 305.1 and Leukocytosis 288.60 [facility] [id number] [address] 4324 Jan, 2014 [facility] [id number] [place] [address] 56650- 0579 Jan, 2014 [facility] [id number] [place] [address] 12637- 1038 Jan, [facility] [id number] [place] [address] 07078- 0639 Jan, [facility] [id number] [place] [address] 22621- 0442 Jan, [facility] [id number] [place] [address] 86056- 9450 Dec, [facility] [id number] [place] [address] 39349- 9499 Dec, [facility] [id number] [place] [address] 73610- 2324 Dec, [facility] [id number] [place] [address] 60475- 9820 Dec, [facility] [id number] [place] [address] 43449- 4793 November, [facility] [id number] [address]- 4732 November, [facility] [id number] [place] [address] 00243- 9678 November, Shortness of breath 786.05 [facility] [id number] [address] 1977 November, Rheumatoid arthritis 714.0 [facility] [id number] [place] [address] 52942- 1380 November, 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 [facility] [id number] [place] [address] 17143- 7319 November, Neuropathy 355.9 ; Insomnia 780.52 ; Dysthymia 300.4 ; Shortness of breath 786.05 ; Rheumatoid arthritis 714.0 and Nausea 787.02 [facility] [id number] [place] [address] 33369- 4206 November, [facility] [id number] [place] [address] 01927- 0256 November, [facility] [id number] [place] [address] 874140- 4033 Oct, [facility] [id number] [place] [address] 75951- 1840 Oct, [facility] [id number] [place] [address] 89741- 5504 Oct, [facility] [id number] [place] [address] 19400- 1232 Oct, [facility] [id number] [place] [address] [id number]- 4876 Sep, [facility] [id number] 9775 Sep, [facility] [address] [id number], [place] [address]- 0901 Sep, [facility] [id number] [address]- 7242 Sep, [facility] [id number] [place] [address] 56278- 6868 Sep, [facility] [id number] [address]- 2596 Sep, [facility] [id number] [place] [address] 72575- 2357 Sep, [facility] [place] [facility] [address] [id number] [place] [address]- 3746 Sep, [facility] [place] [facility] [address] [id number] [place] [address]- 8036 Aug, [facility] [place] [facility] [address] [id number] [place] [address]- 0432 Aug, [facility] [place] [facility] [address] [id number] [place] [address]- 5432 Aug, [facility] [place] [facility] [address] [id number] [place] [address]- 9126 Aug, [facility] [place] [facility] [address] [id number] [place] [address]- 1136 Aug, [facility] [place] [facility] [address] [id number] [place] [address]- 7385 Aug, [facility] [place] [facility] [address] [id number] [place] [address]- 2477 Jul, [facility] [place] [facility] [address] [id number] [place] [address]- 5433 Jul, [facility] [place] [facility] [address] [id number] [place] [address]- 6814 Jul, [facility] [place] [facility] [address] [id number] [place] [address]- 0645 Jul, [facility] [place] [facility] [address] [id number] [place] [address]- 1715 Jul, [facility] [place] [facility] [address] [id number] [place] [address]- 4037 Jul, [facility] [place] [facility] [address] [id number] [place] [address]- 9251 Jul, [facility] [place] [facility] [address] [id number] [place] [address]- 9731 Jul, [facility] [place] [facility] [address] [id number] [place] [address]- 2081 Jul, [facility] [address] [id number] [place] [address]- 2299 Jul, [facility] [place] [facility] [address] [id number] [place] [address]- 9461 Jun, [facility] [address] [id number] [place] [address]- 0027 Jun, [facility] [place] [facility] [address] [id number] [place] [address]- 5416 Jun, [facility] [address] [id number] [place] [address]- 2021 Jun, [facility] [address] [id number] [place] [address]- 8459 Jun, [facility] [address] [id number] [place] [address]- 3925 Jun, [facility] [address] [id number] [place] [address]- 8981 Jun, [facility] [place] [facility] [address] [id number] [place] [address]- 8343 Jun, [facility] [address] [id number] [place] [address]- 6234 Jun, [facility] [place] [facility] [address] [id number] [place] [address]- 4372 Jun, [facility] [place] [facility] [address] [id number] [place] [address]- 6775 Jun, [facility] [place] [facility] [address] [id number] [place] [address]- 4761 Jun, [facility] [place] [facility] [address] [id number] [place] [address]- 9854 Jun, [facility] [place] [facility] [address] [id number] [place] [address]- 6165 Jun, [facility] [place] [facility] [address] [id number] [place] [address]- 3545 Jun, [facility] [place] [facility] [address] [id number] [place] [address]- 0388 Jun, [facility] [place] [facility] [address] [id number] [place] [address]- 1869 May, [facility] [place] [facility] [address] [id number] [place] [address]- 3061 May, [facility] [place] [facility] [address] [id number] [place] [address]- 9230 May, [facility] [place] [facility] [address] [id number] [place] [address]- 2777 May, [facility] [place] [facility] [address] [id number] [place] [address]- 1675 May, [facility] [place] [facility] [address] [id number] [place] [address]- 8963 May, [facility] [place] [facility] [address] [id number] [place] [address]- 1531 May, [facility] [place] [facility] [address] [id number] [place] [address]- 9715 May, [facility] [place] [facility] [address] [id number] [place] [address]- 3158 May, [facility] [place] [facility] [address] [id number] [address]- 0079 Apr, [facility] [place] [facility] [address] [id number] [place] [address]- 5886 Apr, [facility] [place] [facility] [address] [id number] [place] [address]- 5368 Apr, [facility] [place] [facility] [address] [id number] [place] [address]- 4497 Apr, [facility] [place] [facility] [address] [id number] [place] [address]- 4073 Apr, [facility] [place] [facility] [address] [id number] [place] [address]- 0590 10 Apr, 2014 [facility] [place] [facility] [address] [id number] [place] [address]- 6306 Apr, [facility] [place] [facility] [address] [id number] [place] [address]- 8986 Apr, [facility] [place] [facility] [address] [id number] [place] [address]- 5034 Apr, [facility] [place] [facility] [address] [id number] [place] [address]- 8807 Apr, [facility] [place] [facility] [address] [id number] [place] [address]- 7401 Apr, [facility] [place] [facility] [address] [id number] [place] [address]- 8847 Apr, [facility] [place] [facility] [address] [id number] [place] [address]- 0072 22 Mar, 2013 [facility] [place] [facility] [address] [id number] [place] [address]- 2879 22 Mar, 2013 [facility] [place] [facility] [address] [id number] [place] [address]- 8161 19 Mar, 2013 [facility] [place] [facility] [address] [id number] [place] [address]- 0265 19 Mar, 2013 [facility] [place] [facility] [address] [id number] [address]- 0682 11 Mar, 2013 [facility] [place] [facility] [address] [id number] [place] [address]- 1049 11 Mar, 2013 [facility] [place] [facility] [address] [id number], [place] [address]- 2619 11 Mar, 2013 [facility] [place] [facility] [address] [id number] [address]- 4552 11 Mar, 2013 [facility] [place] [facility] [address] [id number] [place] [address]- 9825 Mar, [facility] [place] [facility] [address] [id number] [place] [address]- 8891 Mar, [facility] [place] [facility] [address] [id number] [place] [address]- 8002 Feb, [facility] [place] [facility] [address] [id number] [place] [address]- 9173 Feb, [facility] [place] [facility] [address] [id number] [place] [address]- 8239 Feb, [facility] [place] [facility] [address] [id number] [place] [address]- 2078 Feb, [facility] [place] [facility] [address] [id number] [place] [address]- 4782 Feb, [facility] [place] [facility] [address] [id number] [place] [address]- 9004 Feb, [facility] [place] [facility] [address] [id number] [place] [address]- 0015 Feb, [facility] [place] [facility] [address] [id number] [place] [address]- 0914 Feb, [facility] [place] [facility] [address] [id number] [place] [address]- 5433 Feb, [facility] [place] [facility] [address] [id number] [place] [address]- 9256 Feb, [facility] [place] [facility] [address] [id number] [place] [address]- 4743 Feb, [facility] [place] [facility] [address] [id number] [place] [address]- 9718 Feb, [facility] [place] [facility] [address] [id number] [place] [address]- 1551 Feb, [facility] [place] [facility] [address] [id number] [place] [address]- 4226 Feb, [facility] [place] [facility] [address] [id number] [place] [address]- 3061 Feb, [facility] [place] [facility] [address] [id number] [place] [address]- 5936 Feb, [facility] [place] [facility] [address] [id number] [place] [address]- 3230 Jan, [facility] [place] [facility] [address] [id number] [place] [address]- 1672 Jan, [facility] [place] [facility] [address] [id number] [place] [address]- 3233 Jan, [facility] [place] [facility] [address] [id number] [place] [address]- 5084 Jan, [facility] [place] [facility] [address] [id number] [place] [address]- 2726 Jan, [facility] [place] [facility] [address] [id number] [place] [address]- 2348 Jan, [facility] [place] [facility] [address] [id number] [place] [address]- 6312 Dec, [facility] [place] [facility] [address] [id number] [place] [address]- 6676 Dec, [facility] [place] [facility] [address] [id number] [place] [address]- 1922 Dec, [facility] [place] [facility] [address] [id number], [place] [address]- 1076 Dec, [facility] [place] [facility] [address] [id number] [place] [address]- 9659 Dec, [facility] [place] [facility] [address] [id number] [place] [address]- 6412 Dec, [facility] [place] [facility] [address] [id number] [place] [address]- 9808 Dec, [facility] [place] [facility] [address] [id number] [place] [address]- 4881 Dec, [facility] [place] [facility] [address] [id number] [place] [address]- 7374 November, [facility] [place] [facility] [address] [id number] [place] [address]- 9725 November, [facility] [place] [facility] [address] [id number] [place] [address]- 4751 November, [facility] [place] [facility] [address] [id number] [place] [address]- 5033 November, [facility] [place] [facility] [address] [id number] [place] [address]- 5403 November, [facility] [place] [facility] [address] [id number] [place] [address]- 8623 November, [facility] [place] [facility] [address] [id number] [place] [address]- 7716 Oct, [facility] [place] [facility] [address] [id number] [place] [address]- 5193 Oct, [facility] [place] [facility] [address] [id number] [place] [address]- 9003 Oct, [facility] [place] [facility] [address] [id number] [place] [address]- 6740 Oct, [facility] [place] [facility] [address] [id number] [place] [address]- 7599 Sep, [facility] [place] [facility] [address] [id number] [place] [address]- 7357 Sep, [facility] [place] [facility] [address] [id number] [place] [address]- 2643 Sep, [facility] [place] [facility] [address] [id number] [place] [address]- 1985 Sep, [facility] [place] [facility] [address] [id number] [place] [address]- 9417 Sep, [facility] [place] [facility] [address] [id number] [place] [address]- 3914 Sep, [facility] [place] [facility] [address] [id number] [place] [address]- 8869 Aug, [facility] [place] [facility] [address] [id number] [place] [address]- 6582 Aug, [facility] [place] [facility] [address] [id number] [place] [address]- 8203 Aug, [facility] [place] [facility] [address] [id number] [place] [address]- 7519 Aug, [facility] [place] [facility] [address] [id number] [place] [address]- 7261 Aug, [facility] [place] [facility] [address] [id number] [place] [address]- 0936 Aug, [facility] [place] [facility] [address] [id number] [place] [address]- 8720 Jul, [facility] [place] [facility] [address] [id number] [place] [address]- 4146 Jul, [facility] [place] [facility] [address] [id number] [place] [address]- 1053 Jul, [facility] [place] [facility] [address] [id number] [place] [address]- 4820 Jul, [facility] [place] [facility] [address] [id number] [place] [address]- 0979 Jul, [facility] [place] [facility] [address] [id number] [place] [address]- 1416 Jul, [facility] [place] [facility] [address] [id number] [place] [address]- 7906 Jul, [facility] [place] [facility] [address] [id number] [place] [address]- 0303 Jul, [facility] [place] [facility] [address] [id number] [place] [address]- 2777 Jul, [facility] [address] [id number] [place] [address]- 6534 Jul, [facility] [place] [facility] [address] [id number] [place] [address]- 3761 Jul, [facility] [address] [id number] [place] [address]- 4304 Jul, [facility] [place] [facility] [address] [id number] [place] [address]- 4341 Jul, [facility] [address] [id number] [place] [address]- 1820 Jul, [facility] [place] [facility] [address] [id number] [place] [address]- 9267 Jul, [facility] [place] [facility] [address] [id number] [place] [address]- 7700 Jun, [facility] [place] [facility] [address] [id number] [place] [address]- 4767 Jun, [facility] [place] [facility] [address] [id number] [place] [address]- 0496 Jun, [facility] [place] [facility] [address] [facility] [id number] [place] [address]- 2000 Jun, [facility] [place] [facility] [address] [id number] [place] [address]- 0637 May, [facility] [place] [facility] [address] [id number] [place] [address]- 8454 May, [facility] [address] [id number] [place] [id number] May, [facility] [place] [facility] [address] [id number] [place] [address]- 3869 May, [facility] [place] [facility] [address] [id number] [place] [address]- 1582 May, [facility] [place] [facility] [address] [id number] [address]- 4156 May, [facility] [address] [address]- 5317 May, [facility] [address] [address]- 7694 May, [facility] [address] [address]- 9973 May, [facility] [address] [id number] May, [facility] [address] [address]- 9598 May, [facility] [address] [id number] May, [facility] [id number] [address]- 4916 May, [facility] [address] [id number] May, [facility] [id number] [address] May, IMMUNIZATIONS No Known Immunizations SOCIAL HISTORY Never Assessed REASON FOR VISIT Medication refill request PLAN OF CARE VITAL SIGNS MEDICATIONS Medication Instructions Dosage Frequency Start Date End Date Duration Status Albuterol Sulfate (2.5 MG/3ML) 0.083% Inhalation every 6 hrs USE ONE AMPULE IN NEBULIZER EVERY 6 HOURS 6h 30 days Active RESULTS No Results PROCEDURES No [...] Diarrhea, leukocytosis--[facility] 01/08/16 Hospitalization History pseudomemranous colitis, sepsis--[facility] 04/21/2016 Hospitalization History C Diff--[facility] 05/10/2016 Hospitalization History sepsis, pneumonia, diarrhea--[facility] 06/11/16 Hospitalization History recurrent cdiff, pneumonia-[facility] 07/22/16 Hospitalization History sepsis,pneumonia- [facility]
--- OUTSIDE RECORDS SUMMARY | 2018-03-18 20:21 | XMS REPORT ---
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 906990901 Problem Leg pain, left M79.605 Active 123337083 Problem Edema R60.9 Active 876973190 Problem Anxiety F41.9 Active 46531530 Problem Chronic pain syndrome G89.4 Active 666343471 Problem Chronic obstructive pulmon disease w acute lower resp infct J44.0 Active Problem Other chronic pain G89.29 Active 10052574 Problem PVD (peripheral vascular disease) I73.9 Active 641689376 Problem Insomnia, unspecified type G47.00 Active 254924354 Problem Dysphagia, unspecified dysphagia R13.10 Active 31036129 Problem Anemia, unspecified type D64.9 Active 087214466 Problem Depression, unspecified depression type F32.9 Active 72669412 Problem Rheumatoid arthritis, involving unspecified site, unspecified rheumatoid factor presence M06.9 Active 61515228 Problem Iron deficiency anemia, unspecified iron deficiency anemia type D50.9 Active 27110922 Problem 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 428839988 Problem Osteoarthritis of foot M19.079 Active 038369950 Problem Peripheral vascular disease, unspecified I73.9 Active 613849595 Problem History of cerebrovascular accident with current residual effects I69.90 Active 472583951 Problem Rheumatoid arthritis M06.9 Active 03632456 Problem Atrial fibrillation I48.91 Active 43057305 Problem Hypertension I10 Active 10949934 Problem COPD (chronic obstructive pulmonary disease) J44.9 Active 56490081 ALLERGIES No Information SOCIAL HISTORY Never Assessed PLAN OF CARE VITAL SIGNS MEDICATIONS Medication Instructions Dosage Frequency Start Date End Date Duration Status Hydrocodone-Acetaminophen 10-325 MG Orally 3 times a day 1 tablet as needed 8h Sep, 28 days Active RESULTS No Results PROCEDURES [...] leukocytosis--[facility] 01/08/16 Hospitalization History pseudomemranous colitis, sepsis--[facility] 04/21/2016 Hospitalization History C Diff--[facility] 05/10/2016 Hospitalization History sepsis, pneumonia, diarrhea--[facility] 06/11/16 Hospitalization History recurrent cdiff, pneumonia-[facility] 07/22/16
--- OUTSIDE RECORDS SUMMARY | 2018-03-18 20:21 | XMS REPORT ---
Author Author DAPHNE YUSUF Organization [facility] Address [address] [place] [address] Care Team Providers Care Telecommunications Operator Name Role Phone DAPHNE YUSUF Unavailable PROBLEMS Type Condition ICD9-CM Code FFT20-NA Code Onset Dates Condition Status SNOMED Code Problem Hx of Clostridium difficile infection Z86.19 Active 266998962 Problem History of arthroplasty of right knee Z96.651 Active 014200707 Problem Dysphagia, unspecified dysphagia R13.10 Active 17532393 Problem Chronic pain syndrome G89.4 Active 237236118 Problem 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 607281230 Problem Anxiety F41.9 Active 49575468 Problem Leg pain, left M79.605 Active 070472947 Problem Depression, unspecified depression type F32.9 Active 51895507 Problem Iron deficiency anemia, unspecified iron deficiency anemia type D50.9 Active 27404665 Problem Anemia, unspecified type D64.9 Active 497751539 Problem Seasonal allergic rhinitis due to pollen J30.1 Active 91197589 Problem Insomnia, unspecified G47.00 Active 277782860 Problem 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 800577168 Problem History of cerebrovascular accident with current residual effects I69.90 Active 108323476 Problem Peripheral vascular disease, unspecified I73.9 Active 489494490 Problem Rheumatoid arthritis, involving unspecified site, unspecified rheumatoid factor presence M06.9 Active 32226984 Problem Other chronic pain G89.29 Active 03882231 Problem Primary insomnia F51.01 Active 1954023 Problem Chronic obstructive pulmon disease w acute lower resp infct J44.0 Active 196044377 Problem Atrial fibrillation I48.91 Active 43704643 Problem Dysthymia F34.1 Active 11046100 Problem Osteoarthritis of foot M19.079 Active 917860616 Problem Rheumatoid arthritis M06.9 Active 37436839 Problem Tobacco abuse, 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 741545473 Problem Edema R60.9 Active 881853224 Problem COPD (chronic obstructive pulmonary disease) J44.9 Active 81712766 Problem Hypertension I10 Active 11221308 ALLERGIES No Information ENCOUNTERS Encounter Location Date Diagnosis [facility] [id number] [place] [address] 80516- 0057 14 Dec, 2017 Chronic pain syndrome G89.4 [facility] [id number] [place] [address] 87757- 7589 November, Chronic pain syndrome G89.4 [facility] [address] 03765- 9483 November, [facility] [address] 71764- 2333 Oct, Chronic pain syndrome G89.4 [facility] [id number] [place] [address] 67601- 6869 Oct, [facility] [address] 01740- 3468 Oct, Chronic pain syndrome G89.4 [facility] [address] 07405- 8603 Oct, [facility] [id number] [place] [address] 93566- 5736 Oct, [facility] [id number] [place] [address] 86987- 9705 Sep, Left upper quadrant pain R10.12 ; Chronic pain syndrome G89.4 ; Left lower quadrant pain R10.32 ; Other chronic pain G89.29 ; Sacrococcygeal disorders, not elsewhere classified M53.3 and Seasonal allergic rhinitis due to pollen J30.1 [facility] [id number] [place] [address] 55753- 3574 Sep, Chronic pain syndrome G89.4 [facility] [id number] [place] [address] 46971- 7077 Sep, [facility] [address] [address] 1424 Aug, Chronic pain syndrome G89.4 [facility] [address] [place] [address] 40214- 6945 Aug, [facility] [id number] [place] [address] 38470- 2217 Aug, Insomnia, unspecified G47.00 [facility] [id number] [place] [address] 52280- 7023 Jul, [facility] [id number] [place] [address] 03341- 2574 Jul, [facility] [id number] [place] [address] 00249- 5744 Jul, Chronic pain syndrome G89.4 [facility] [id number] [place] [address] 79017- 1623 Jun, Chronic pain syndrome G89.4 [facility] [id number] [place] [address] 09912- 8829 Jun, Chronic pain syndrome G89.4 [facility] [id number] [place] [address] 20980- 0787 May, [facility] [address] [place] [address] 80417- 5259 May, Shortness of breath R06.02 ; Peripheral vascular disease, unspecified I73.9 ; Pain in right knee M25.561 ; Other chronic pain G89.29 ; Chest wall pain R07.89 ; Chronic pain syndrome G89.4 ; Primary insomnia F51.01 and Ear pain, left H92.02 [facility] [address] [place] [address] 01377- 1365 06 May, 2017 Anxiety F41.9 [facility] [address] [address] 1414 Apr, Pneumonia due to infectious organism, unspecified laterality , unspecified part of lung J18.9 ; Hypoxia R09.02 ; Bradycardia R00.1 ; History of Clostridium difficile Z87.19 and Primary insomnia F51.01 [facility] [address] 41412- 9783 Apr, Anxiety F41.9 [facility] [address] 91532- 1653 Apr, [facility] [address] 21272- 8146 Mar, Anxiety F41.9 [facility] [address] 14753- 9842 Feb, [facility] [facility] [address] 23168- 7958 Feb, [facility] [facility] [address] 25604- 9518 Feb, Abnormal finding on urinalysis R82.90 [facility] [address] 47801- 3687 Feb, [facility] [address] 04513- 9634 Feb, Shortness of breath R06.02 ; Tachycardia R00.0 ; Cough R05 ; Ill feeling R68.89 and Abnormal finding on urinalysis R82.90 [facility] [id number] [place] [address] 60465- 7643 Feb, Anxiety F41.9 [facility] [id number] [place] [address] 32253 -6856 Feb, Sore throat J02.9 and Acute diffuse otitis externa of left ear H60.312 [facility] [id number] [place] [address] 35708- 7122 Jan, [facility] [address] 32032- 2253 Jan, [facility] [id number] [id number] Jan, [facility] [address] [place] [address] 53411- 2791 Jan, Depression, unspecified depression type F32.9 ; Chronic bronchitis, unspecified chronic bronchitis type J42 ; Chronic pain syndrome G89.4 and Anxiety F41.9 [facility] [id number] [place] [address] 12902- 3446 Jan, [facility] [id number] [place] [address] 54388- 4693 Jan, [facility] [id number] [place] [address] 38670- 5463 Jan, [facility] [id number] [place] [address] [id number] Jan, Chronic pain syndrome G89.4 [facility] [address] [id number] Dec, History of right knee surgery Z98.890 [facility] [address] [place] [address] 65517- 6742 Dec, [facility] [address] [place] [address] 92949- 9578 Dec, Chronic pain syndrome G89.4 [facility] [address] [place] [address] 77594- 5680 November, Anxiety F41.9 [facility] [address], [place] [address] November, Acute cystitis without hematuria N30.00 [facility] [id number] [place] [address] 77754 -3067 November, Fever, unspecified fever cause R50.9 and Acute cystitis without hematuria N30.00 [facility] [address] [place] [address] 63561- 4706 November, Chronic pain syndrome G89.4 [facility] [address], [place] [address]- 6027 Oct, Anxiety F41.9 [facility] [address] [place] [address] 61314- 0545 Oct, Chronic pain syndrome G89.4 [facility] [address] [place] [address] 76143- 8786 Oct, Chronic pain syndrome G89.4 [facility] [address] [place] [address] 98740- 3144 Oct, [facility] [id number] [place] [address] 78348- 2276 Oct, Chronic pain syndrome G89.4 ; Pain in right knee M25.561 ; History of Clostridium difficile Z87.19 ; Iron deficiency anemia, unspecified iron deficiency anemia type D50.9 ; Peripheral vascular disease, unspecified I73.9 and Atrial fibrillation I48.91 [facility] [address] [place] [address] 60625- 4780 Oct, [facility] [id number] [place] [address] 99562- 2049 Oct, Chronic pain syndrome G89.4 [facility] [id number] [place] [address] 69710- 3048 Sep, [facility] [id number] [place] [address] 46994- 2134 Sep, Depression, unspecified depression type F32.9 ; Chronic bronchitis, unspecified chronic bronchitis type J42 ; Chronic pain syndrome G89.4 and Anxiety F41.9 [facility] [address] [place] [id number] Sep, History of Clostridium difficile infection Z86.19 and History of stroke Z86.73 [facility] [id number] [place] [address] [id number] Sep, Anxiety F41.9 [facility] [id number] [address]- 1725 08 Sep, 2016 Chronic pain syndrome G89.4 [facility] [address] [place] [address] 89401- 5698 Sep, [facility] [id number] [place] [address] [id number] Sep, [facility] [id number] [place] [address] 33602- 6783 Aug, Anxiety F41.9 [facility] [id number] [place] [address] 13766- 0596 Aug, Anxiety F41.9 [facility] [id number] [place] [address] 76537- 1471 16 Aug, 2016 [facility] [id number] [place] [address] 63959- 9124 14 Aug, 2016 Acute knee pain, unspecified laterality M25.569 [facility] [address] [place] [address] 96090- 3979 13 Aug, 2016 [facility] [id number] [place] [address] 03204- 1501 09 Aug, 2016 Chronic pain syndrome G89.4 [facility] [id number] [place] [address] 10199- 1709 Aug, [facility] [id number] [place] [address] 46189- 4749 Aug, [facility] [id number] [place] [address] 55690- 2934 Jul, [facility] [id number] [place] [address] 409814- 7825 Jul, Anxiety F41.9 [facility] [address] Jul, Clostridium difficile diarrhea A04.7 [facility] [address] [place] [id number] Jul, Clostridium difficile diarrhea A04.7 ; Chronic pain syndrome G89.4 ; Chronic obstructive pulmon disease w acute lower resp infct J44.0 and Pain in right knee M25.561 [facility] [id number] [id number] Jul, [facility] [address], [place] [address] Jul, Anxiety F41.9 and Chronic pain syndrome G89.4 [facility] [address], [place] [address]- 6444 Jun, Anxiety F41.9 [facility] [address] [place] [address] 97294- 2626 Jun, Rheumatoid arthritis 714.0 [facility] [address] [place] [address] 49334- 0771 Jun, Chronic pain syndrome G89.4 [facility] [address], [place] [address]- 0811 Jun, [facility] [id number] [place] [address] 56536- 0581 Jun, [facility] [address], [place] [address]- 9445 Jun, History of pneumonia Z87.01 and History of Clostridium difficile Z87.19 [facility] [address], [place] [address]- 7756 Jun, [facility] [address], [place] [address]- 4925 May, [facility] [address] [place] [address] 00990- 9611 May, Anxiety F41.9 [facility] [address], [place] [address]- 8713 May, Chronic pain syndrome G89.4 [facility] [id number] [place] [address] 27864- 5131 May, Chronic bronchitis, unspecified chronic bronchitis type J42 [facility] [id number] [place] [address] 96257- 0740 May, [facility] [id number] [place] [address] 44834- 1020 May, C. difficile diarrhea A04.7 ; Peripheral edema R60.9 ; COPD (chronic obstructive pulmonary disease) J44.9 ; Rheumatoid arthritis, involving unspecified site, unspecified rheumatoid factor presence M06.9 ; Pain in right knee M25.561 ; Pain in left knee M25.562 and Other chronic pain G89.29 [facility] [id number] [place] [address] 89008- 2006 May, [facility] [id number] [place] [address] 61944- 9494 May, [facility] [id number] [place] [address] 35971- 0281 May, Anxiety F41.9 [facility] [id number] [place] [address] 45885- 4104 Apr, [facility] [id number] [place] [address] 08855- 9265 Apr, Chronic pain syndrome G89.4 [facility] [id number] [place] [address] 12644- 9831 Apr, Leg pain, left M79.605 [facility] [id number] [place] [address] 65162- 3427 Apr, [facility] [id number] [place] [address] 83979- 1413 Apr, [facility] [id number] [place] [address] 40468- 7415 Apr, [facility] [id number] [place] [address] 47591- 7888 28 Mar, 2016 Chronic pain syndrome G89.4 [facility] [id number] [place] [address] 74249- 6637 22 Mar, 2016 Acute frontal sinusitis, recurrence not specified J01.10 [facility] [id number] [place] [address] 11952- 3712 20 Mar, 2016 Iron deficiency anemia, unspecified iron deficiency anemia type D50.9 ; Rheumatoid arthritis with positive rheumatoid factor, involving unspecified site M05.9 and Depression, unspecified depression type F32.9 [facility] [id number] [place] [address] 43387- 0215 13 Mar, 2016 Iron deficiency anemia, unspecified iron deficiency anemia type D50.9 ; Depression, unspecified depression type F32.9 and Rheumatoid arthritis with positive rheumatoid factor, involving unspecified site M05.9 [facility] [id number] [place] [address] 47367- 8302 06 Mar, 2016 [facility] [id number] [place] [address] 04592- 8757 Mar, [facility] [id number] [place] [address] 42349- 2145 Feb, Chronic pain syndrome G89.4 [facility] [id number] [place] [address] 87821- 8338 30 Feb, 2016 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 ; Status post CVA Z86.73 ; Hemiplegia G81.90 and Anemia, unspecified type D64.9 [facility] [address], [place] [address]- 3416 Feb, [facility] [id number] [place] [address] 24293- 3637 Feb, Anemia, unspecified type D64.9 [facility] [address] [place] [address] 26189- 0356 Feb, [facility] [id number] [place] [address] 25001- 8682 Feb, Iron deficiency anemia, unspecified iron deficiency anemia type D50.9 [facility] [id number] [place] [address] 13522- 2935 Feb, [facility] [id number] [place] [address] 68104- 5138 Feb, Chronic bronchitis, unspecified chronic bronchitis type J42 [facility] [id number] [place] [address] 79112- 7654 Feb, Iron deficiency anemia, unspecified iron deficiency anemia type D50.9 [facility] [id number] [place] [address] 25940- 2810 Feb, Chronic pain syndrome G89.4 [facility] [id number] [place] [address] 53099- 3837 Feb, Anemia, unspecified type D64.9 and Hypoxia R09.02 [facility] [id number] [place] [address] 81438- 0877 Feb, Anemia, unspecified type D64.9 [facility] [id number] [place] [address] 05348- 0551 Jan, [facility] [id number] [place] [address] 39388- 8338 Jan, Anemia, unspecified type D64.9 [facility] [id number] [place] [address] 95234- 7212 Jan, [facility] [id number] [place] [address] 44640- 2129 Jan, Anemia, unspecified type D64.9 [facility] [id number] [place] [address] 84355- 1913 Jan, Anemia, unspecified type D64.9 [facility] [id number] [place] [address] 55674- 2009 Jan, [facility] [id number] [place] [address] 00718- 2373 Jan, Anemia, unspecified type D64.9 [facility] [id number] [place] [address] 87405- 4309 Jan, [facility] [id number] [place] [address] 37586- 9592 Jan, [facility] [id number] [place] [address] 27961- 7787 Jan, Chronic pain syndrome G89.4 [facility] [id number] [place] [address] 25530- 9819 Jan, Anemia, unspecified type D64.9 [facility] [id number] [place] [address] 39216- 6030 Jan, Dysthymia F34.1 ; Cervicalgia M54.2 ; Fatigue, unspecified type R53.83 and Depression, unspecified depression type F32.9 [facility] [id number] [place] [address] 79442- 4751 Dec, [facility] [id number] [place] [address] 90634- 2257 Dec, Anxiety F41.9 [facility] [id number] [place] [address] 84044- 3043 Dec, Chronic pain syndrome G89.4 [facility] [id number] [place] [address] 88223- 3785 November, [facility] [id number] [place] [address] 27492- 1342 November, Edema R60.9 and Dizziness R42 [facility] [id number] [place] [address] 64303- 0751 November, [facility] [id number] [place] [address] 70224- 1620 November, [facility] [address] [address]- 3141 November, COPD (chronic obstructive pulmonary disease) J44.9 ; Increased tracheal secretions J39.8 and Edema R60.9 [facility] [id number] [place] [address] 77878 -2040 29 Oct, 2015 [facility] [id number] [place] [address] 67254 -6062 Oct, Shortness of breath R06.02 and Edema R60.9 [facility] [id number] [place] [address] 70989- 1614 Oct, Chronic bronchitis, unspecified chronic bronchitis type J42 ; Peripheral vascular disease, unspecified I73.9 ; Rheumatoid arthritis M06.9 and Atrial fibrillation I48.91 [facility] [id number] [place] [address] 72817- 5784 Oct, [facility] [id number] [place] [address] 38163- 0931 Oct, [facility] [id number] [place] [address] 86713- 7879 Oct, [facility] [id number] [place] [address] 00562- 7469 Oct, [facility] [id number] [place] [address] 83874 -4361 Oct, COPD exacerbation J44.1 [facility] [id number] [place] [address] 22441- 9192 Sep, [facility] [id number] [place] [address] 25411- 5546 Sep, [facility] [id number] [place] [address] 03804- 3420 16 Sep, 2015 [facility] [id number] [place] [address] 27701- 5678 Aug, [facility] [address] [address]- 6899 Aug, 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 and PVD (peripheral vascular disease ) I73.9 [facility] [id number] [place] [address] 95874- 5600 Aug, Bronchitis J40 ; COPD (chronic obstructive pulmonary disease ) J44.9 and Dysthymia F34.1 [facility] [id number] [place] [address] 30998- 0951 Aug, [facility] [id number] [place] [address] [id number]- [phone] Jul, [facility] [id number] [place] [address] [phone]- [phone] Jul, [facility] [id number] [place] [address] 55048- [phone] Jul, [facility] [id number] [place] [address] 18887- 4634 Jun, [facility] [id number] [place] [address] 95130- 6126 Jun, [facility] [id number] [place] [address] 70200- 3415 Jun, Peripheral vascular disease I73.9 [facility] [id number] [place] [address] 75257- 4751 Jun, [facility] [id number] [place] [address] 34278- 2541 Jun, [facility] [facility] [id number] [place] [address] 81199- 8638 Jun, Leg pain, left M79.605 ; Dysphagia, unspecified dysphagia R13.10 ; Insomnia, unspecified type G47.00 ; PVD (peripheral vascular disease) I73.9 and 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 [facility] [id number] [place] [address] [place] [address] 269[address] May, [facility] [address] [facility] [id number], [place] [address] 41[address] May, [facility] [address], [place] [address] 5122 May, [facility] [address], [place] [address] 2242 May, [facility] [id number] [place] [address] 71407- 3028 May, [facility] [id number] [place] [address] 63464- 7553 Apr, [facility] [id number] [place] [address] 51908- 6397 Apr, [facility] [id number] [place] [address] 72612- 6409 Mar, [facility] [address], [place] [address] 3643 Mar, [facility] [address], [place] [address]- 0750 Feb, [facility] [address], [place] [address]- 3538 Feb, Nicotine abuse 305.1 ; Arthralgia 719.40 and 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 [facility] [address], [place] [address] 0507 Feb, [facility] [address], [place] [address] 3220 Jan, [facility] [address], [place] [address]- 9746 Jan, [facility] [address], [place] [address]- 1562 Jan, [facility] [id number] [address] 2370 Jan, [facility] [id number] [place] [address] 761458- 1949 Jan, 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 ; Rheumatoid arthritis 714.0 ; Hypertension 401.9 ; GERD (gastroesophageal reflux disease) 530.81 ; Nicotine addiction 305.1 and Leukocytosis 288.60 [facility] [id number] [place] [address] 94386- 8966 Jan, [facility] [id number] [place] [address] 66287- 5203 Jan, [facility] [id number] [place] [address] 18534- 7600 Jan, [facility] [id number] [place] [address] 02535- 7569 Jan, [facility] [id number] [place] [address] 882062- 0057 Jan, [facility] [id number] [place] [address] 08875- 5152 Dec, [facility] [id number] [place] [address] 838171- 0594 Dec, [facility] [id number] [place] [address] 31300- 3757 Dec, [facility] [id number] [place] [address] 97484- 2472 Dec, [facility] [id number] [place] [address] 41227- 7199 November, [facility] [id number] [place] [address] 41304- 6513 November, [facility] [address], [place] [address]- 1428 November, Shortness of breath 786.05 [facility] [id number] [place] [address] 82783- 0604 November, Rheumatoid arthritis 714.0 [facility] [id number] [place] [address] 69933- 2329 November, 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 [facility] [id number], [place] [address] 5428 November, Neuropathy 355.9 ; Insomnia 780.52 ; Dysthymia 300.4 ; Shortness of breath 786.05 ; Rheumatoid arthritis 714.0 and Nausea 787.02 [facility] [id number], [place] [address]- 9417 November, [facility] [id number] [place] [address] 43613- 9923 November, [facility] [id number] [place] [address] 82643- 9362 Oct, [facility] [id number] [place] [address] 35376- 9566 Oct, [facility] [id number] [place] [address] 35201- 9578 Oct, [facility] [id number] [place] [address] 01361- 9013 Oct, [facility] [address], [place] [address]- 6279 Sep, [facility] [id number] [place] [address] 11514- 4292 Sep, [facility] [address], [place] [address]- 0497 Sep, [facility] [id number] [place] [address] 45112- 2822 Sep, [facility] [address] 7888 Sep, [facility] [id number] [place] [address] 03349- 5122 Sep, [facility] [place] [facility] [address] [id number] [place] [address]- 1539 Sep, [facility] [place] [facility] [address] [id number] [place] [address]- 1688 Sep, [facility] [place] [facility] [address] [id number] [place] [address]- 3481 Aug, [facility] [place] [facility] [address] [id number] [place] [address]- 5414 Aug, [facility] [place] [facility] [address] [id number] [place] [address]- 1378 Aug, [facility] [place] [facility] [address] [id number] [place] [address]- 8590 Aug, [facility] [place] [facility] [address] [id number] [place] [address]- 3597 Aug, [facility] [place] [facility] [address] [id number] [place] [address]- 4378 Aug, [facility] [place] [facility] [address] [id number] [place] [address]- 7375 Jul, [facility] [place] [facility] [address] [id number] [place] [address]- 1287 Jul, [facility] [place] [facility] [address] [id number] [place] [address]- 9439 Jul, [facility] [place] [facility] [address] [id number] [place] [address]- 5130 Jul, [facility] [place] [facility] [address] [id number] [place] [address]- 9028 Jul, [facility] [place] [facility] [address] [id number] [place] [address]- 5439 Jul, [facility] [place] [facility] [address] [id number], [place] [address]- 6122 Jul, [facility] [place] [facility] [address] [id number] [place] [address]- 0949 Jul, [facility] [place] [facility] [address] [id number] [place] [address]- 6701 Jul, [facility] [place] [facility] [address] [id number] [place] [address]- 9209 Jul, [facility] [place] [facility] [address] [id number] [place] [address]- 5397 Jun, [facility] [place] [facility] [address] [id number] [place] [address]- 5150 Jun, [facility] [place] [facility] [address] [id number] [place] [address]- 8843 Jun, [facility] [place] [facility] [address] [id number] [place] [address]- 9578 Jun, [facility] [place] [facility] [address] [id number] [place] [address]- 1695 Jun, [facility] [place] [facility] [address] [id number] [place] [address]- 3848 Jun, [facility] [place] [facility] [address] [id number] [place] [address]- 8707 Jun, [facility] [place] [facility] [address] [id number] [place] [address]- 3133 Jun, [facility] [place] [facility] [address] [id number] [place] [address]- 8620 Jun, [facility] [place] [facility] [address] [id number] [place] [address]- 3629 Jun, [facility] [place] [facility] [address] [id number] [place] [address]- 3754 Jun, [facility] [place] [facility] [address] [id number] [place] 0052 Jun, [facility] [place] [facility] [address] [id number] [place] [address]- 3592 Jun, [facility] [place] [facility] [address] [id number] [place] [address]- 9368 Jun, [facility] [place] [facility] [address] [id number] [place] 8515 Jun, [facility] [place] [facility] [address] [id number] [place] [address]- 9540 Jun, [facility] [place] [facility] [address] [id number] [place] [address]- 3161 May, [facility] [place] [facility] [address] [id number] [place] [address]- 7008 May, [facility] [place] [facility] [address] [id number] [place] [address]- 0971 May, [facility] [place] [facility] [address] [id number] [place] [address]- 6985 May, [facility] [place] [facility] [address] [id number] [place] [address]- 6570 May, [facility] [place] [facility] [address] [id number] [place] [address]- 8395 May, [facility] [place] [facility] [address] [id number] [place] [address]- 1233 May, [facility] [place] [facility] [address] [id number], [place] [address]- 4294 May, [facility] [place] [facility] [address] [id number], [place] [address]- 6126 May, [facility] [place] [facility] [address] [id number] [place] [address]- 9809 Apr, [facility] [place] [facility] [address] [id number] [place] [address]- 1208 Apr, [facility] [place] [facility] [address] [id number] [place] [address]- 2924 Apr, [facility] [place] [facility] [address] [id number] [place] [address]- 1551 13 Apr, 2013 [facility] [place] [facility] [address] [id number] [place] [address]- 0898 10 Apr, 2014 [facility] [place] [facility] [address] [id number] [place] [address]- 4974 10 Apr, 2014 [facility] [place] [facility] [address] [id number] [place] [address]- 7177 Apr, 2013 [facility] [place] [facility] [address] [id number] [place] [address]- 5185 Apr, 2013 [facility] [place] [facility] [address] [id number] [place] [address]- 4543 Apr, [facility] [place] [facility] [address] [id number] [place] [address]- 6414 Apr, [facility] [place] [facility] [address] [id number] [place] [address]- 1246 Apr, [facility] [place] [facility] [address] [id number] [place] [address]- 2572 Apr, [facility] [place] [facility] [address] [id number] [place] [address]- 6460 22 Mar, 2013 [facility] [place] [facility] [address] [id number] [place] [address]- 2983 22 Mar, 2013 [facility] [place] [facility] [address] [id number] [place] [address]- 5501 19 Mar, 2013 [facility] [place] [facility] [address] [id number] [place] [address]- 2548 19 Mar, 2013 [facility] [place] [facility] [address] [id number] [place] [address]- 5484 11 Mar, 2013 [facility] [place] [facility] [address] [id number] [place] [address]- 6715 11 Mar, 2013 [facility] [place] [facility] [address] [id number] [place] [address]- 2254 Mar, [facility] [place] [facility] [address] [id number] [place] [address]- 7432 Mar, [facility] [place] [facility] [address] [id number] [place] [address]- 5338 Mar, [facility] [place] [facility] [address] [id number] [place] [address]- 0866 Mar, [facility] [place] [facility] [address] [id number] [place] [address]- 4844 Feb, [facility] [place] [facility] [address] [id number] [place] [address]- 5038 Feb, [facility] [place] [facility] [address] [id number] [place] [address]- 6089 Feb, [facility] [place] [facility] [address] [id number] [place] [address]- 0857 Feb, [facility] [place] [facility] [address] [id number] [place] [address]- 4756 Feb, [facility] [place] [facility] [address] [id number] [place] [address]- 0481 Feb, [facility] [place] [facility] [address] [id number] [place] [address]- 1110 Feb, [facility] [place] [facility] [address] [id number] [place] [address]- 5378 Feb, [facility] [place] [facility] [address] [id number] [place] [address]- 7900 Feb, [facility] [place] [facility] [address] [id number] [place] [address]- 2179 Feb, [facility] [place] [facility] [address] [id number] [place] [address]- 7605 Feb, [facility] [place] [facility] [address] [id number] [place] [address]- 9984 Feb, [facility] [place] [facility] [address] [id number] [place] [address]- 5821 Feb, [facility] [place] [facility] [address] [id number] [place] [address]- 4344 Feb, [facility] [place] [facility] [address] [id number] [place] [address]- 3066 Feb, [facility] [place] [facility] [address] [id number] [place] [address]- 1007 Feb, [facility] [place] [facility] [address] [id number] [place] [address]- 2347 Jan, [facility] [place] [facility] [address] [id number] [place] [address]- 5045 Jan, [facility] [place] [facility] [address] [id number] [place] [address]- 7306 Jan, [facility] [place] [facility] [address] [id number] [place] [address]- 8076 Jan, [facility] [place] [facility] [address] [id number] [place] [address]- 0382 Jan, [facility] [place] [facility] [address] [id number] [place] [address]- 0252 Jan, [facility] [place] [facility] [address] [id number] [place] [address]- 5932 Dec, [facility] [place] [facility] [address] [id number] [place] [address]- 5659 Dec, [facility] [place] [facility] [address] [id number] [place] [address]- 1531 Dec, [facility] [place] [facility] [address] [id number] [place] [address]- 9165 Dec, [facility] [place] [facility] [address] [id number] [place] [address]- 0739 Dec, [facility] [place] [facility] [address] [id number] [place] [address]- 5666 Dec, [facility] [place] [facility] [address] [id number] [place] [address]- 8157 Dec, [facility] [place] [facility] [address] [id number] [place] [address]- 9720 Dec, [facility] [place] [facility] [address] [id number] [place] [address]- 0895 November, [facility] [place] [facility] [address] [id number] [place] [address]- 8791 November, [facility] [place] [facility] [address] [id number] [place] [address]- 4377 November, [facility] [place] [facility] [address] [id number] [place] [address]- 8830 November, [facility] [place] [facility] [address] [id number] [place] [address]- 2585 November, [facility] [place] [facility] [address] [id number] [place] [address]- 9516 November, [facility] [place] [facility] [address] [id number] [place] [address]- 2859 Oct, [facility] [place] [facility] [address] [id number] [place] [address]- 1744 Oct, [facility] [place] [facility] [address] [id number] [place] [address]- 9647 Oct, [facility] [place] [facility] [address] [id number] [place] [address]- 7457 Oct, [facility] [place] [facility] [address] [id number] [place] [address]- 9040 Sep, [facility] [place] [facility] [address] [id number] [place] [address]- 7334 Sep, [facility] [place] [facility] [address] [id number] [place] [address]- 8988 Sep, [facility] [place] [facility] [address] [id number] [place] [address]- 9362 Sep, [facility] [place] [facility] [address] [id number] [place] [address]- 3639 Sep, [facility] [place] [facility] [address] [id number] [place] [address]- 1318 Sep, [facility] [place] [facility] [address] [id number] [place] [address]- 3180 Aug, [facility] [place] [facility] [address] [id number] [place] [address]- 1131 Aug, [facility] [place] [facility] [address] [id number] [place] [address]- 9999 Aug, [facility] [place] [facility] [address] [id number] [place] [address]- 0235 Aug, [facility] [place] [facility] [address] [id number] [place] [address]- 9582 Aug, [facility] [place] [facility] [address] [id number] [place] [address]- 9847 Aug, [facility] [place] [facility] [address] [id number] [place] [address]- 2647 Jul, [facility] [place] [facility] [address] [id number] [place] [address]- 5051 Jul, [facility] [place] [facility] [address] [id number] [place] [address]- 1679 Jul, [facility] [place] [facility] [address] [id number] [place] [address]- 8943 Jul, [facility] [place] [facility] [address] [id number] [place] [address]- 3010 Jul, [facility] [place] [facility] [address] [id number] [place] [address]- 1499 Jul, [facility] [place] [facility] [address] [id number] [place] [address]- 5668 Jul, [facility] [place] [facility] [address] [id number] [place] [address]- 5827 Jul, [facility] [address] [id number] [place] [address]- 6098 Jul, [facility] [address] [id number] [place] [address]- 8183 Jul, [facility] [address] [id number] [place] [address]- 8563 Jul, [facility] [address] [id number] [place] [address]- 9331 Jul, [facility] [address] [id number] [place] [address]- 0846 Jul, [facility] [address] [id number] [place] [address]- 9406 Jul, [facility] [address] [id number] [place] [address]- 6510 Jul, [facility] [address] [id number] [place] [address]- 2988 Jun, [facility] [address] [id number] [place] [address]- 9937 Jun, [facility] [address] [id number] [place] [address]- 1267 Jun, [facility] [address] [id number] [place] [address]- 5371 Jun, [facility] [address] [id number] [place] [address]- 3228 May, [facility] [address] [id number] [place] [address]- 8802 May, [facility] [address] [id number] [place] [id number] May, [facility] [address] [id number], [place] [address]- 8307 May, [facility] [address] [id number], [place] [address]- 3626 May, [facility] [address], [place] [address]- 5226 May, [facility] [address], [place] [address]- 2004 May, [facility] [address], [place] [address]- 3804 May, [facility] [address], [place] [address]- 6336 May, [facility] [id number] [place] [address] [id number] May, [facility] [address], [place] [address] May, [facility] [id number] [place] [phone] May, [facility] [id number], [place] [address] May, [facility] [id number] [phone] May, [facility] [id number], [place] [address] May, IMMUNIZATIONS No Known Immunizations SOCIAL HISTORY Never Assessed REASON FOR VISIT Medication Side effects PLAN OF CARE VITAL SIGNS MEDICATIONS Medication Instructions Dosage Frequency Start Date End Date Duration Status Trazodone HCl 50 mg Orally Once a day 1/2-1 tablet at bedtime as needed 24h Aug, 30 day(s) Active RESULTS No Results PROCEDURES No [...] (Toro) 2013 Surgical History capsule endoscopy Dr Ptitman WN 03/2016 Surgical History Rt TKA 12/24/16 Hospitalization History amputation transmetatarsal Hospitalization History hip replacement Hospitalization History CVA 12/2014 Hospitalization History Exacerbation COPD 10/23/15 Hospitalization History Diarrhea, leukocytosis--[facility] 01/08/16 Hospitalization History pseudomemranous colitis, sepsis--[facility] 04/21/2016 Hospitalization History C Diff--[facility] 05/10/2016 Hospitalization History sepsis, pneumonia, diarrhea--[facility] 06/11/16 Hospitalization History recurrent cdiff, pneumonia-[facility] 07/22/16 Hospitalization History sepsis,pneumonia- [facility]
--- OUTSIDE RECORDS SUMMARY | 2018-03-18 20:22 | XMS REPORT ---
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 428507431 Problem Leg pain, left M79.605 Active 856109400 Problem Edema R60.9 Active 826015521 Problem Anxiety F41.9 Active 62913459 Problem Chronic pain syndrome G89.4 Active 998661224 Problem Chronic obstructive pulmon disease w acute lower resp infct J44.0 Active Problem Other chronic pain G89.29 Active 96624415 Problem PVD (peripheral vascular disease) I73.9 Active 370981597 Problem Insomnia, unspecified type G47.00 Active 162967140 Problem Dysphagia, unspecified dysphagia R13.10 Active 55575663 Problem Anemia, unspecified type D64.9 Active 604554443 Problem Depression, unspecified depression type F32.9 Active 86763761 Problem Rheumatoid arthritis, involving unspecified site, unspecified rheumatoid factor presence M06.9 Active 99278373 Problem Iron deficiency anemia, unspecified iron deficiency anemia type D50.9 Active 67704307 Problem 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 882679547 Problem Osteoarthritis of foot M19.079 Active 769194763 Problem Peripheral vascular disease, unspecified I73.9 Active 032547988 Problem History of cerebrovascular accident with current residual effects I69.90 Active 540253461 Problem Rheumatoid arthritis M06.9 Active 06526088 Problem Atrial fibrillation I48.91 Active 96902760 Problem Hypertension I10 Active 66992716 Problem COPD (chronic obstructive pulmonary disease) J44.9 Active 25839749 ALLERGIES No Information SOCIAL HISTORY Never Assessed PLAN OF CARE VITAL SIGNS MEDICATIONS Medication Instructions Dosage Frequency Start Date End Date Duration Status Xanax 0.5 MG Orally Once a day 1 tablet at bedtime 24h Jan, 2 doses Active RESULTS No Results PROCEDURES No Known [...] leukocytosis--[facility] 01/08/16 Hospitalization History pseudomemranous colitis, sepsis--[facility] 04/21/2016 Hospitalization History C Diff--[facility] 05/10/2016 Hospitalization History sepsis, pneumonia, diarrhea--[facility] 06/11/16 Hospitalization History recurrent cdiff, pneumonia-[facility] 07/22/16
--- OUTSIDE RECORDS SUMMARY | 2018-03-18 20:22 | XMS REPORT ---
Author Author DAPHNE YUSUF Organization [facility] Address [address] [place] [address] Care Team Providers Care Molded Frames Assembler Name Role Phone DAPHNE YUSUF Unavailable PROBLEMS Type Condition ICD9-CM Code VBO18-WQ Code Onset Dates Condition Status SNOMED Code Problem Hx of Clostridium difficile infection Z86.19 Active 266305809 Problem History of arthroplasty of right knee Z96.651 Active 428439529 Problem Dysphagia, unspecified dysphagia R13.10 Active 58572806 Problem Chronic pain syndrome G89.4 Active 844676345 Problem 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 547711928 Problem Anxiety F41.9 Active 47985358 Problem Leg pain, left M79.605 Active 926565814 Problem Depression, unspecified depression type F32.9 Active 52057874 Problem Iron deficiency anemia, unspecified iron deficiency anemia type D50.9 Active 98751234 Problem Anemia, unspecified type D64.9 Active 707877763 Problem Seasonal allergic rhinitis due to pollen J30.1 Active 13315616 Problem Insomnia, unspecified G47.00 Active 282987321 Problem 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 417656226 Problem History of cerebrovascular accident with current residual effects I69.90 Active 720493386 Problem Peripheral vascular disease, unspecified I73.9 Active 218847093 Problem Rheumatoid arthritis, involving unspecified site, unspecified rheumatoid factor presence M06.9 Active 10876262 Problem Other chronic pain G89.29 Active 79136363 Problem Primary insomnia F51.01 Active 6693942 Problem Chronic obstructive pulmon disease w acute lower resp infct J44.0 Active 480901349 Problem Atrial fibrillation I48.91 Active 63304462 Problem Dysthymia F34.1 Active 22805911 Problem Osteoarthritis of foot M19.079 Active 300885530 Problem Rheumatoid arthritis M06.9 Active 10888281 Problem Tobacco abuse, 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 130672989 Problem Edema R60.9 Active 929049807 Problem COPD (chronic obstructive pulmonary disease) J44.9 Active 90268719 Problem Hypertension I10 Active 57989492 ALLERGIES No Information ENCOUNTERS Encounter Location Date Diagnosis [facility] [id number] [place] [address] 10018- 8852 14 Dec, 2017 Chronic pain syndrome G89.4 [facility] [id number] [place] [address] 06180- 2369 November, Chronic pain syndrome G89.4 [facility] [address] 14030- 9823 November, [facility] [address] 79243- 9635 Oct, Chronic pain syndrome G89.4 [facility] [id number] [place] [address] 39102- 7573 Oct, [facility] [address] 10243- 8450 Oct, Chronic pain syndrome G89.4 [facility] [address] 31037- 1799 Oct, [facility] [id number] [place] [address] 01760- 9645 Oct, [facility] [id number] [place] [address] 15168- 5182 Sep, Left upper quadrant pain R10.12 ; Chronic pain syndrome G89.4 ; Left lower quadrant pain R10.32 ; Other chronic pain G89.29 ; Sacrococcygeal disorders, not elsewhere classified M53.3 and Seasonal allergic rhinitis due to pollen J30.1 [facility] [id number] [place] [address] 12853- 5918 Sep, Chronic pain syndrome G89.4 [facility] [id number] [place] [address] 63678- 8989 Sep, [facility] [address] [address] 1196 Aug, Chronic pain syndrome G89.4 [facility] [id number] [place] [address] 34375- 2748 Aug, [facility] [id number] [place] [address] 67517- 5336 Aug, Insomnia, unspecified G47.00 [facility] [id number] [place] [address] 18936- 7221 Jul, [facility] [id number] [place] [address] 63414- 0246 Jul, [facility] [id number] [place] [address] 12006- 1318 Jul, Chronic pain syndrome G89.4 [facility] [id number] [place] [address] 60140- 1861 Jun, Chronic pain syndrome G89.4 [facility] [id number] [place] [address] 61588- 1348 Jun, Chronic pain syndrome G89.4 [facility] [id number] [place] [address] 72434- 7592 May, [facility] [id number] [place] [address] 33487- 9828 May, Shortness of breath R06.02 ; Peripheral vascular disease, unspecified I73.9 ; Pain in right knee M25.561 ; Other chronic pain G89.29 ; Chest wall pain R07.89 ; Chronic pain syndrome G89.4 ; Primary insomnia F51.01 and Ear pain, left H92.02 [facility] [id number] [place] [address] 02540- 4589 06 May, 2017 Anxiety F41.9 [facility] [address] [address] 8599 Apr, Pneumonia due to infectious organism, unspecified laterality , unspecified part of lung J18.9 ; Hypoxia R09.02 ; Bradycardia R00.1 ; History of Clostridium difficile Z87.19 and Primary insomnia F51.01 [facility] [address] 28116- 7364 Apr, Anxiety F41.9 [facility] [address] 21780- 4351 Apr, [facility] [address] 28041- 7060 Mar, Anxiety F41.9 [facility] [address] 78241- 8673 Feb, [facility] [address] 02107- 0417 Feb, [facility] [address] 77725- 7223 Feb, Abnormal finding on urinalysis R82.90 [facility] [address] 52463- 4643 Feb, [facility] [address] 74449- 1035 Feb, Shortness of breath R06.02 ; Tachycardia R00.0 ; Cough R05 ; Ill feeling R68.89 and Abnormal finding on urinalysis R82.90 [facility] [id number] [place] [address] 47202- 9008 Feb, Anxiety F41.9 [facility] [id number] [place] [address] 65459 -3541 Feb, Sore throat J02.9 and Acute diffuse otitis externa of left ear H60.312 [facility] [id number] [place] [address] 74773- 7344 Jan, [facility] [address] 46496- 1952 Jan, [facility] [id number] [id number] Jan, [facility] [id number] [place] [address] 80056- 5580 Jan, Depression, unspecified depression type F32.9 ; Chronic bronchitis, unspecified chronic bronchitis type J42 ; Chronic pain syndrome G89.4 and Anxiety F41.9 [facility] [id number] [place] [address] 46968- 7629 Jan, [facility] [id number] [place] [address] 36867- 9329 Jan, [facility] [id number] [place] [address] 54485- 0289 Jan, [facility] [id number] [place] [address] [id number] Jan, Chronic pain syndrome G89.4 [facility] [address] [place] [id number] Dec, History of right knee surgery Z98.890 [facility] [address] [place] [address] 22802- 0645 Dec, [facility] [address] [place] [address] 71009- 9192 Dec, Chronic pain syndrome G89.4 [facility] [id number] [place] [address] 32383- 1954 November, Anxiety F41.9 [facility] [address], [place] [address] November, Acute cystitis without hematuria N30.00 [facility] [id number] [place] [address] 11107 -3639 November, Fever, unspecified fever cause R50.9 and Acute cystitis without hematuria N30.00 [facility] [address] [place] [address] 80816- 5567 November, Chronic pain syndrome G89.4 [facility] [address] [address]- 6978 Oct, Anxiety F41.9 [facility] [address] [place] [address] 35353- 5759 Oct, Chronic pain syndrome G89.4 [facility] [address] [place] [address] 78870- 8440 Oct, Chronic pain syndrome G89.4 [facility] [address] [place] [address] 83336- 9047 Oct, [facility] [id number] [place] [address] 36529- 1292 Oct, Chronic pain syndrome G89.4 ; Pain in right knee M25.561 ; History of Clostridium difficile Z87.19 ; Iron deficiency anemia, unspecified iron deficiency anemia type D50.9 ; Peripheral vascular disease, unspecified I73.9 and Atrial fibrillation I48.91 [facility] [address] [place] [address] 94781- 4408 Oct, [facility] [id number] [place] [address] 87381- 2680 Oct, Chronic pain syndrome G89.4 [facility] [id number] [place] [address] 92287- 4175 Sep, [facility] [id number] [place] [address] 12421- 4284 Sep, Depression, unspecified depression type F32.9 ; Chronic bronchitis, unspecified chronic bronchitis type J42 ; Chronic pain syndrome G89.4 and Anxiety F41.9 [facility] [address] [id number] Sep, History of Clostridium difficile infection Z86.19 and History of stroke Z86.73 [facility] [id number] [place] [address] [id number] Sep, Anxiety F41.9 [facility] [id number] [address]- 9148 08 Sep, 2016 Chronic pain syndrome G89.4 [facility] [id number] [place] [address] 93366- 5427 Sep, [facility] [id number] [place] [address] [id number] Sep, [facility] [id number] [place] [address] 84959- 4262 Aug, Anxiety F41.9 [facility] [id number] [place] [address] 40711- 8777 Aug, Anxiety F41.9 [facility] [id number] [place] [address] 11851- 6307 16 Aug, 2016 [facility] [id number] [place] [address] 22371- 7969 14 Aug, 2016 Acute knee pain, unspecified laterality M25.569 [facility] [address] [place] [address] 84962- 9503 13 Aug, 2016 [facility] [id number] [place] [address] 96321- 0802 09 Aug, 2016 Chronic pain syndrome G89.4 [facility] [id number] [place] [address] 58495- 1537 Aug, [facility] [id number] [place] [address] 25102- 0186 Aug, [facility] [address] [place] [address] 17885- 6174 Jul, [facility] [id number] [place] [address] 179044- 6212 Jul, Anxiety F41.9 [facility] [address] [address] 0469 Jul, Clostridium difficile diarrhea A04.7 [facility] [address] [id number] Jul, Clostridium difficile diarrhea A04.7 ; Chronic pain syndrome G89.4 ; Chronic obstructive pulmon disease w acute lower resp infct J44.0 and Pain in right knee M25.561 [facility] [id number] [id number] Jul, [facility] [address], [place] [address] Jul, Anxiety F41.9 and Chronic pain syndrome G89.4 [facility] [address], [place] [address]- 8233 Jun, Anxiety F41.9 [facility] [id number] [place] [address] 68468- 4824 Jun, Rheumatoid arthritis 714.0 [facility] [address] [place] [address] 07387- 0549 Jun, Chronic pain syndrome G89.4 [facility] [address], [place] [address]- 3603 Jun, [facility] [id number] [place] [address] 15408- 0025 Jun, [facility] [address], [place] [address]- 7909 Jun, History of pneumonia Z87.01 and History of Clostridium difficile Z87.19 [facility] [address] [place] [address]- 5270 Jun, [facility] [address], [place] [address]- 0771 May, [facility] [id number] [place] [address] 26781- 4883 May, Anxiety F41.9 [facility] [address], [place] [address]- 9001 May, Chronic pain syndrome G89.4 [facility] [id number] [place] [address] 59351- 9008 May, Chronic bronchitis, unspecified chronic bronchitis type J42 [facility] [id number] [place] [address] 93973- 4958 May, [facility] [id number] [place] [address] 83019- 9977 May, C. difficile diarrhea A04.7 ; Peripheral edema R60.9 ; COPD (chronic obstructive pulmonary disease) J44.9 ; Rheumatoid arthritis, involving unspecified site, unspecified rheumatoid factor presence M06.9 ; Pain in right knee M25.561 ; Pain in left knee M25.562 and Other chronic pain G89.29 [facility] [id number] [place] [address] 35060- 1336 May, [facility] [id number] [place] [address] 03555- 3926 May, [facility] [id number] [place] [address] 26564- 3316 May, Anxiety F41.9 [facility] [id number] [place] [address] 35329- 5972 Apr, [facility] [id number] [place] [address] 62625- 8509 Apr, Chronic pain syndrome G89.4 [facility] [id number] [place] [address] 97050- 1702 Apr, Leg pain, left M79.605 [facility] [id number] [place] [address] 33684- 7587 Apr, [facility] [id number] [place] [address] 57918- 2036 Apr, [facility] [id number] [place] [address] 38778- 6903 Apr, [facility] [id number] [place] [address] 84748- 8743 28 Mar, 2016 Chronic pain syndrome G89.4 [facility] [id number] [place] [address] 64274- 6032 22 Mar, 2016 Acute frontal sinusitis, recurrence not specified J01.10 [facility] [id number] [place] [address] 81199- 8587 20 Mar, 2016 Iron deficiency anemia, unspecified iron deficiency anemia type D50.9 ; Rheumatoid arthritis with positive rheumatoid factor, involving unspecified site M05.9 and Depression, unspecified depression type F32.9 [facility] [id number] [place] [address] 77200- 9450 13 Mar, 2016 Iron deficiency anemia, unspecified iron deficiency anemia type D50.9 ; Depression, unspecified depression type F32.9 and Rheumatoid arthritis with positive rheumatoid factor, involving unspecified site M05.9 [facility] [id number] [place] [address] 24119- 8652 06 Mar, 2016 [facility] [id number] [place] [address] 54386- 8618 Mar, [facility] [id number] [place] [address] 95226- 1935 Feb, Chronic pain syndrome G89.4 [facility] [id number] [place] [address] 42872- 2703 30 Feb, 2016 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 ; Status post CVA Z86.73 ; Hemiplegia G81.90 and Anemia, unspecified type D64.9 [facility] [address], [place] [address]- 3849 Feb, [facility] [id number] [place] [address] 69059- 2297 Feb, Anemia, unspecified type D64.9 [facility] [id number] [place] [address] 45410- 6489 Feb, [facility] [id number] [place] [address] 65105- 4738 Feb, Iron deficiency anemia, unspecified iron deficiency anemia type D50.9 [facility] [id number] [place] [address] 63231- 6925 Feb, [facility] [id number] [place] [address] 80057- 1703 Feb, Chronic bronchitis, unspecified chronic bronchitis type J42 [facility] [id number] [place] [address] 84629- 3385 Feb, Iron deficiency anemia, unspecified iron deficiency anemia type D50.9 [facility] [id number] [place] [address] 54157- 4627 Feb, Chronic pain syndrome G89.4 [facility] [id number] [place] [address] 32623- 9586 Feb, Anemia, unspecified type D64.9 and Hypoxia R09.02 [facility] [id number] [place] [address] 36765- 2383 Feb, Anemia, unspecified type D64.9 [facility] [id number] [place] [address] 28656- 5022 Jan, [facility] [id number] [place] [address] 36186- 7685 Jan, Anemia, unspecified type D64.9 [facility] [id number] [place] [address] 45509- 7529 Jan, [facility] [id number] [place] [address] 58669- 9629 Jan, Anemia, unspecified type D64.9 [facility] [id number] [place] [address] 53495- 5293 Jan, Anemia, unspecified type D64.9 [facility] [id number] [place] [address] 22385- 6545 Jan, [facility] [id number] [place] [address] 30197- 1896 Jan, Anemia, unspecified type D64.9 [facility] [id number] [place] [address] 80715- 5267 Jan, [facility] [id number] [place] [address] 95743- 2728 Jan, [facility] [id number] [place] [address] 98177- 9733 Jan, Chronic pain syndrome G89.4 [facility] [id number] [place] [address] 93910- 2309 Jan, Anemia, unspecified type D64.9 [facility] [id number] [place] [address] 16777- 1437 Jan, Dysthymia F34.1 ; Cervicalgia M54.2 ; Fatigue, unspecified type R53.83 and Depression, unspecified depression type F32.9 [facility] [id number] [place] [address] 07186- 2583 Dec, [facility] [id number] [place] [address] 40996- 7014 Dec, Anxiety F41.9 [facility] [id number] [place] [address] 82875- 1526 Dec, Chronic pain syndrome G89.4 [facility] [id number] [place] [address] 01656- 3405 November, [facility] [id number] [place] [address] 65959- 1813 November, Edema R60.9 and Dizziness R42 [facility] [id number] [place] [address] 66544- 9457 November, [facility] [id number] [place] [address] 58141- 9162 November, [facility] [id number] [address]- 6745 November, COPD (chronic obstructive pulmonary disease) J44.9 ; Increased tracheal secretions J39.8 and Edema R60.[address] [facility] [id number] [place] [address] 28501 -2949 29 Oct, [address] [facility] [id number] [place] [address] 67896 -7840 Oct, Shortness of breath R06.02 and Edema R60.9 [facility] [id number] [place] [address] 21536- 6223 Oct, Chronic bronchitis, unspecified chronic bronchitis type J42 ; Peripheral vascular disease, unspecified I73.9 ; Rheumatoid arthritis M06.9 and Atrial fibrillation I48.91 [facility] [id number] [place] [address] 43411- 4765 Oct, [facility] [id number] [place] [address] 50520- 0457 Oct, [facility] [id number] [place] [address] 21316- 0885 Oct, [facility] [id number] [place] [address] 39737- 3189 Oct, [facility] [id number] [place] [address] 14860 -1011 Oct, COPD exacerbation J44.1 [facility] [id number] [place] [address] 44389- 5471 Sep, [facility] [id number] [place] [address] 86954- 6231 Sep, [facility] [id number] [place] [address] 29117- 7890 16 Sep, 2015 [facility] [id number] [place] [address] 30712- 9184 Aug, [facility] [id number] [address]- 9929 Aug, 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 and PVD (peripheral vascular disease ) I73.9 [facility] [id number] [place] [address] 31551- 8954 Aug, Bronchitis J40 ; COPD (chronic obstructive pulmonary disease ) J44.9 and Dysthymia F34.1 [facility] [id number] [place] [address] 88039- 8051 Aug, [facility] [id number] [place] [address] 36049- 4545 Jul, [facility] [id number] [place] [address] 93046- 6988 Jul, [facility] [id number] [place] [address] 38397- 0528 Jul, [facility] [id number] [place] [address] 59443- 8030 Jun, [facility] [id number] [place] [address] 81981- 2166 Jun, [facility] [id number] [place] [address] 86714- 2165 Jun, Peripheral vascular disease I73.9 [facility] [id number] [place] [address] 88229- 8096 Jun, [facility] [id number] [place] [address] 74845- 254 Jun, [facility] [id number] [place] [address] 34599- 8864 Jun, Leg pain, left M79.605 ; Dysphagia, unspecified dysphagia R13.10 ; Insomnia, unspecified type G47.00 ; PVD (peripheral vascular disease) I73.9 and 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 [facility] [id number] [place] [address] [place] [address] May, [facility] [address] [facility] [id number] [address] May, [facility] [id number] [address] May, [facility] [id number] [address] May, [facility] [id number] [place] [address] 06097- 9122 May, [facility] [id number] [place] [address] 81008- 0989 Apr, [facility] [id number] [place] [address] 55693- 7323 Apr, [facility] [id number] [place] [address] 87177- 2252 Mar, [facility] [id number] [address] Mar, [facility] [id number] [address] Feb, [facility] [id number] [place] [address] 1665 Feb, Nicotine abuse 305.1 ; Arthralgia 719.40 and 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 [facility] [id number] [address] 70[address] Feb, [facility] [id number] [place] [address] Jan, [facility] [id number] [address] 5770 Jan, [facility] [id number] [place] [address] 1783 Jan, [facility] [id number] [address] 0[address] Jan, [facility] [id number] [place] [address] 558174- 9583 Jan, 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 ; Rheumatoid arthritis 714.0 ; Hypertension 401.9 ; GERD (gastroesophageal reflux disease) 530.81 ; Nicotine addiction 305.1 and Leukocytosis 288.60 [facility] [id number] [place] [address] 23369- 7545 Jan, [facility] [id number] [place] [address] 79533- 7822 Jan, [facility] [id number] [place] [address] 14075- 0503 Jan, [facility] [id number] [place] [address] 90090- 4367 Jan, [facility] [id number] [place] [address] 102761- 7436 Jan, [facility] [id number] [place] [address] 56734- 9364 Dec, [facility] [id number] [place] [address] 382533- 2344 Dec, [facility] [id number] [place] [address] 46521- 1045 Dec, [facility] [id number] [place] [address] 27364- 1251 Dec, [facility] [id number] [place] [address] 97984- 2067 November, [facility] [id number] [place] [address] 42324- 2588 November, [facility] [address] [address]- 2891 November, Shortness of breath 786.05 [facility] [id number] [place] [address] 43396- 6415 November, Rheumatoid arthritis 714.0 [facility] [id number] [place] [address] 45037- 5224 November, 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 [facility] [id number] [address] 9980 November, Neuropathy 355.9 ; Insomnia 780.52 ; Dysthymia 300.4 ; Shortness of breath 786.05 ; Rheumatoid arthritis 714.0 and Nausea 787.02 [facility] [id number] [address] 5864 November, [facility] [id number] [place] [address] 64633- 5922 November, [facility] [id number] [place] [address] 05900- 5336 Oct, [facility] [id number] [place] [address] 18144- 6856 Oct, [facility] [id number] [place] [address] 87798- 4197 Oct, [facility] [id number] [place] [address] 65736- 4312 Oct, [facility] [address] [address]- 8001 Sep, [facility] [id number] [place] [address] 72617- 0991 Sep, [facility] [address] [address]- 1208 Sep, [facility] [id number] [place] [address] 82813- 3530 Sep, [facility] [address] 6887 Sep, [facility] [id number] [place] [address] 64798- 2180 Sep, [facility] [place] [facility] [address] [id number] [place] [address]- 9983 Sep, [facility] [place] [facility] [address] [id number] [place] [address]- 0421 Sep, [facility] [place] [facility] [address] [id number] [place] [address]- 9836 Aug, [facility] [place] [facility] [address] [id number] [place] [address]- 4205 Aug, [facility] [place] [facility] [address] [id number] [place] [address]- 4921 Aug, [facility] [place] [facility] [address] [id number] [place] [address]- 9904 Aug, [facility] [place] [facility] [address] [id number] [place] [address]- 9720 Aug, [facility] [place] [facility] [address] [id number] [place] [address]- 3391 Aug, [facility] [place] [facility] [address] [id number] [place] [address]- 1929 Jul, [facility] [place] [facility] [address] [id number] [place] [address]- 7321 Jul, [facility] [place] [facility] [address] [id number] [place] [address]- 8007 Jul, [facility] [place] [facility] [address] [id number] [place] [address]- 0117 Jul, [facility] [place] [facility] [address] [id number] [place] [address]- 0830 Jul, [facility] [place] [facility] [address] [id number] [place] [address]- 9745 Jul, [facility] [place] [facility] [address] [id number], [place] [address]- 4728 Jul, [facility] [place] [facility] [address] [id number] [place] [address]- 8563 Jul, [facility] [place] [facility] [address] [id number] [place] [address]- 2585 Jul, [facility] [place] [facility] [address] [id number] [place] [address]- 3238 Jul, [facility] [place] [facility] [address] [id number] [place] [address]- 4085 Jun, [facility] [place] [facility] [address] [id number] [place] [address]- 8921 Jun, [facility] [place] [facility] [address] [id number] [place] [address]- 9990 Jun, [facility] [place] [facility] [address] [id number] [place] [address]- 8766 Jun, [facility] [place] [facility] [address] [id number] [place] [address]- 5173 Jun, [facility] [place] [facility] [address] [id number] [place] [address]- 5161 Jun, [facility] [place] [facility] [address] [id number] [place] [address]- 1292 Jun, [facility] [place] [facility] [address] [id number] [place] [address]- 6366 Jun, [facility] [place] [facility] [address] [id number] [place] [address]- 9086 Jun, [facility] [place] [facility] [address] [id number] [place] [address]- 9750 Jun, [facility] [place] [facility] [address] [id number] [place] [address]- 6814 Jun, [facility] [place] [facility] [address] [id number] [place] 4061 Jun, [facility] [place] [facility] [address] [id number] [place] [address]- 1769 Jun, [facility] [place] [facility] [address] [id number] [place] [address]- 9075 Jun, [facility] [place] [facility] [address] [id number] [place] 1044 Jun, [facility] [place] [facility] [address] [id number] [place] [address]- 7466 Jun, [facility] [place] [facility] [address] [id number] [place] [address]- 2090 May, [facility] [place] [facility] [address] [id number] [place] [address]- 5803 May, [facility] [place] [facility] [address] [id number] [place] [address]- 7734 May, [facility] [place] [facility] [address] [id number] [place] [address]- 0111 May, [facility] [place] [facility] [address] [id number] [place] [address]- 5359 May, [facility] [place] [facility] [address] [id number] [place] [address]- 7809 May, [facility] [place] [facility] [address] [id number] [place] [address]- 7360 May, [facility] [place] [facility] [address] [id number] [address]- 5728 May, [facility] [place] [facility] [address] [id number], [place] [address]- 2656 May, [facility] [place] [facility] [address] [id number] [place] [address]- 1689 Apr, [facility] [place] [facility] [address] [id number] [place] [address]- 4999 Apr, [facility] [place] [facility] [address] [id number] [place] [address]- 1244 Apr, [facility] [place] [facility] [address] [id number] [place] [address]- 1567 13 Apr, 2013 [facility] [place] [facility] [address] [id number] [place] [address]- 8419 10 Apr, 2014 [facility] [place] [facility] [address] [id number] [place] [address]- 2341 10 Apr, 2014 [facility] [place] [facility] [address] [id number] [place] [address]- 0114 Apr, 2013 [facility] [place] [facility] [address] [id number] [place] [address]- 4074 Apr, 2013 [facility] [place] [facility] [address] [id number] [place] [address]- 0874 Apr, [facility] [place] [facility] [address] [id number] [place] [address]- 1611 Apr, [facility] [place] [facility] [address] [id number] [place] [address]- 0648 Apr, [facility] [place] [facility] [address] [id number] [place] [address]- 7232 Apr, [facility] [place] [facility] [address] [id number] [place] [address]- 8388 22 Mar, 2013 [facility] [place] [facility] [address] [id number] [place] [address]- 0577 22 Mar, 2013 [facility] [place] [facility] [address] [id number] [place] [address]- 3156 19 Mar, 2013 [facility] [place] [facility] [address] [id number] [place] [address]- 254 19 Mar, 2013 [facility] [place] [facility] [address] [id number] [place] [address]- 5767 11 Mar, 2013 [facility] [place] [facility] [address] [id number] [place] [address]- 8712 11 Mar, 2013 [facility] [place] [facility] [address] [id number] [place] [address]- 2089 Mar, [facility] [place] [facility] [address] [id number] [place] [address]- 9041 Mar, [facility] [place] [facility] [address] [id number] [place] [address]- 0738 Mar, [facility] [place] [facility] [address] [id number] [place] [address]- 3771 Mar, [facility] [place] [facility] [address] [id number] [place] [address]- 0891 Feb, [facility] [place] [facility] [address] [id number] [place] [address]- 7706 Feb, [facility] [place] [facility] [address] [id number] [place] [address]- 0384 Feb, [facility] [place] [facility] [address] [id number] [place] [address]- 3326 Feb, [facility] [place] [facility] [address] [id number] [place] [address]- 6413 Feb, [facility] [place] [facility] [address] [id number] [place] [address]- 2497 Feb, [facility] [place] [facility] [address] [id number] [place] [address]- 8169 Feb, [facility] [place] [facility] [address] [id number] [place] [address]- 2442 Feb, [facility] [place] [facility] [address] [id number] [place] [address]- 0695 Feb, [facility] [place] [facility] [address] [id number] [place] [address]- 3873 Feb, [facility] [place] [facility] [address] [id number] [place] [address]- 2883 Feb, [facility] [place] [facility] [address] [id number] [place] [address]- 8197 Feb, [facility] [place] [facility] [address] [id number] [place] [address]- 5337 Feb, [facility] [place] [facility] [address] [id number] [place] [address]- 1382 Feb, [facility] [place] [facility] [address] [id number] [place] [address]- 7763 Feb, [facility] [place] [facility] [address] [id number] [place] [address]- 7195 Feb, [facility] [place] [facility] [address] [id number] [place] [address]- 3993 Jan, [facility] [place] [facility] [address] [id number] [place] [address]- 8671 Jan, [facility] [place] [facility] [address] [id number] [place] [address]- 5354 Jan, [facility] [place] [facility] [address] [id number] [place] [address]- 9374 Jan, [facility] [place] [facility] [address] [id number] [place] [address]- 4164 Jan, [facility] [place] [facility] [address] [id number] [place] [address]- 1395 Jan, [facility] [place] [facility] [address] [id number] [place] [address]- 1216 Dec, [facility] [place] [facility] [address] [id number] [place] [address]- 8539 Dec, [facility] [place] [facility] [address] [id number] [place] [address]- 2654 Dec, [facility] [place] [facility] [address] [id number] [place] [address]- 4515 Dec, [facility] [place] [facility] [address] [id number] [place] [address]- 2428 Dec, [facility] [place] [facility] [address] [id number] [place] [address]- 1813 Dec, [facility] [place] [facility] [address] [id number] [place] [address]- 5411 Dec, [facility] [place] [facility] [address] [id number] [place] [address]- 0322 Dec, [facility] [place] [facility] [address] [id number] [place] [address]- 6525 November, [facility] [place] [facility] [address] [id number] [place] [address]- 2402 November, [facility] [place] [facility] [address] [id number] [place] [address]- 8005 November, [facility] [place] [facility] [address] [id number] [place] [address]- 2784 November, [facility] [place] [facility] [address] [id number] [place] [address]- 9423 November, [facility] [place] [facility] [address] [id number] [place] [address]- 6652 November, [facility] [place] [facility] [address] [id number] [place] [address]- 5684 Oct, [facility] [place] [facility] [address] [id number] [place] [address]- 7363 Oct, [facility] [place] [facility] [address] [id number] [place] [address]- 6285 Oct, [facility] [place] [facility] [address] [id number] [place] [address]- 0772 Oct, [facility] [place] [facility] [address] [id number] [place] [address]- 9705 Sep, [facility] [place] [facility] [address] [id number] [place] [address]- 6405 Sep, [facility] [place] [facility] [address] [id number] [place] [address]- 0215 Sep, [facility] [place] [facility] [address] [id number] [place] [address]- 0058 Sep, [facility] [place] [facility] [address] [id number] [place] [address]- 3699 Sep, [facility] [place] [facility] [address] [id number] [place] [address]- 7196 Sep, [facility] [place] [facility] [address] [id number] [place] [address]- 4804 Aug, [facility] [place] [facility] [address] [id number] [place] [address]- 1217 Aug, [facility] [place] [facility] [address] [id number] [place] [address]- 7702 Aug, [facility] [place] [facility] [address] [id number] [place] [address]- 9695 Aug, [facility] [place] [facility] [address] [id number] [place] [address]- 5322 Aug, [facility] [place] [facility] [address] [id number] [place] [address]- 8113 Aug, [facility] [place] [facility] [address] [id number] [place] [address]- 9101 Jul, [facility] [place] [facility] [address] [id number] [place] [address]- 1175 Jul, [facility] [place] [facility] [address] [id number] [place] [address]- 7703 Jul, [facility] [place] [facility] [address] [id number] [place] [address]- 4142 Jul, [facility] [place] [facility] [address] [id number] [place] [address]- 5879 Jul, [facility] [place] [facility] [address] [id number] [place] [address]- 8559 Jul, [facility] [place] [facility] [address] [id number] [place] [address]- 3502 Jul, [facility] [place] [facility] [address] [id number] [place] [address]- 8561 Jul, [facility] [address] [id number] [place] [address]- 3276 Jul, [facility] [address] [id number] [place] [address]- 5795 Jul, [facility] [address] [id number] [place] [address]- 0441 Jul, [facility] [address] [id number] [place] [address]- 7968 Jul, [facility] [address] [id number] [place] [address]- 9493 Jul, [facility] [address] [id number] [place] [address]- 5731 Jul, [facility] [address] [id number] [place] [address]- 4025 Jul, [facility] [address] [id number] [place] [address]- 4755 Jun, [facility] [address] [id number] [place] [address]- 4750 Jun, [facility] [address] [id number] [place] [address]- 1893 Jun, [facility] [address] [id number] [place] [address]- 5025 Jun, [facility] [address] [id number] [place] [address]- 7262 May, [facility] [address] [id number] [place] [address]- 5038 May, [facility] [address] [id number] [place] [id number] May, [facility] [address] [id number], [place] [address]- 3342 May, [facility] [address] [id number] [address]- 0916 May, [facility] [address] [address]- 1426 May, [facility] [address] [id number], [place] [address]- 5186 May, [facility] [address] [address]- 0947 May, [facility] [address] [address]- 0186 May, [facility] [id number] [place] [address] [id number] May, [facility] [address] [address]- 5206 May, [facility] [id number] [place] [address] [id number] May, [facility] [address] [id number] [address]- 2936 May, [facility] [address] [id number] May, [facility] [address] [id number] [address]- 8346 May, IMMUNIZATIONS No Known Immunizations SOCIAL HISTORY Never Assessed REASON FOR VISIT Refill request PLAN OF CARE VITAL SIGNS MEDICATIONS Medication Instructions Dosage Frequency Start Date End Date Duration Status Gabapentin 300 MG Orally 3 times a day 2 capsules 8h 30 days Active RESULTS No Results PROCEDURES [...] cdiff, pneumonia-[facility] 07/22/16 Hospitalization History sepsis,pneumonia- [facility]
--- OUTSIDE RECORDS SUMMARY | 2018-03-18 20:24 | XMS REPORT ---
Author Author SHARI BURNETT Organization [facility] Address [address] [place] [address] Care Team Providers Care Chief Knowledge Officer Name Role Phone BURNETTNICKOLAS VillanuevaELE Unavailable PROBLEMS Type Condition ICD9-CM Code GTP47-BI Code Onset Dates Condition Status SNOMED Code Problem Hx of Clostridium difficile infection Z86.19 Active 315581552 Problem History of arthroplasty of right knee Z96.651 Active 108845624 Problem Dysphagia, unspecified dysphagia R13.10 Active 23256219 Problem Chronic pain syndrome G89.4 Active 701368579 Problem 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 740371561 Problem Anxiety F41.9 Active 54235391 Problem Leg pain, left M79.605 Active 492982453 Problem Depression, unspecified depression type F32.9 Active 02336268 Problem Iron deficiency anemia, unspecified iron deficiency anemia type D50.9 Active 91028617 Problem Anemia, unspecified type D64.9 Active 957236764 Problem Seasonal allergic rhinitis due to pollen J30.1 Active 87194448 Problem Insomnia, unspecified G47.00 Active 534022531 Problem 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 127771389 Problem History of cerebrovascular accident with current residual effects I69.90 Active 984855960 Problem Peripheral vascular disease, unspecified I73.9 Active 236494302 Problem Rheumatoid arthritis, involving unspecified site, unspecified rheumatoid factor presence M06.9 Active 22037201 Problem Other chronic pain G89.29 Active 35121287 Problem Primary insomnia F51.01 Active 8764379 Problem Chronic obstructive pulmon disease w acute lower resp infct J44.0 Active 843137337 Problem Atrial fibrillation I48.91 Active 30933745 Problem Dysthymia F34.1 Active 17142731 Problem Osteoarthritis of foot M19.079 Active 809845244 Problem Rheumatoid arthritis M06.9 Active 33996611 Problem Tobacco abuse, 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 Diff Drug Allergy Feb, Active ENCOUNTERS Encounter Location Date Diagnosis [facility] [id number] [place] [address] 75590- 0984 Oct, Chronic pain syndrome G89.4 [facility] [address] 84608- 4190 Oct, [facility] [address] 05540- 9471 Oct, [facility] [address] 23825- 4280 Sep, Left upper quadrant pain R10.12 ; Chronic pain syndrome G89.4 ; Left lower quadrant pain R10.32 ; Other chronic pain G89.29 ; Sacrococcygeal disorders, not elsewhere classified M53.3 and Seasonal allergic rhinitis due to pollen J30.1 [facility] [id number] [place] [address] 53901- 5144 Sep, Chronic pain syndrome G89.4 [facility] [id number] [place] [address] 06086- 5398 Sep, [facility] [id number] [place] [address] 69633- 7030 Aug, Chronic pain syndrome G89.4 [facility] [id number] [place] [address] 43088- 0673 Aug, [facility] [address] 91131- 1669 Aug, Insomnia, unspecified G47.00 [facility] [id number] [place] [address] 58262- 9101 Jul, [facility] [address] 63471- 9387 Jul, [facility] [address] [place] [address] 92337- 4339 Jul, Chronic pain syndrome G89.4 [facility] [id number] [place] [address] 24934- 5512 Jun, Chronic pain syndrome G89.4 [facility] [id number] [place] [address] 20113- 4263 Jun, Chronic pain syndrome G89.4 [facility] [address] [place] [address] 57283- 6623 May, [facility] [id number] [place] [address] 34587- 8776 May, Shortness of breath R06.02 ; Peripheral vascular disease, unspecified I73.9 ; Pain in right knee M25.561 ; Other chronic pain G89.29 ; Chest wall pain R07.89 ; Chronic pain syndrome G89.4 ; Primary insomnia F51.01 and Ear pain, left H92.02 [facility] [id number] [place] [address] 56727- 1892 May, Anxiety F41.9 [facility] [address] [place] [address] 10457- 7476 Apr, Pneumonia due to infectious organism, unspecified laterality , unspecified part of lung J18.9 ; Hypoxia R09.02 ; Bradycardia R00.1 ; History of Clostridium difficile Z87.19 and Primary insomnia F51.01 [facility] [address] [place] [address] 45654- 9527 Apr, Anxiety F41.9 [facility] [id number] [place] [address] 45505- 2475 Apr, [facility] [address] [place] [address] 55992- 1013 Mar, Anxiety F41.9 [facility] [id number] [place] [address] 60136- 1195 Feb, [facility] [address] 49277- 0673 Feb, [facility] [address] 26219- 8746 Feb, Abnormal finding on urinalysis R82.90 [facility] [address] 16449- 8888 Feb, [facility] [address] 17949- 0811 Feb, Shortness of breath R06.02 ; Tachycardia R00.0 ; Cough R05 ; Ill feeling R68.89 and Abnormal finding on urinalysis R82.90 [facility] [address] 37334- 8664 Feb, Anxiety F41.9 [facility] [address] 84279 -9743 Feb, Sore throat J02.9 and Acute diffuse otitis externa of left ear H60.312 [facility] [address] 54235- 4635 Jan, [facility] [id number] [place] [address] 31154- 1880 Jan, [facility] [address] [id number] Jan, [facility] [id number] [place] [address] 39877- 5138 Jan, Depression, unspecified depression type F32.9 ; Chronic bronchitis, unspecified chronic bronchitis type J42 ; Chronic pain syndrome G89.4 and Anxiety F41.9 [facility] [id number] [place] [address] 78871- 1999 Jan, [facility] [address] 65563- 3380 Jan, [facility] [address] [place] [address]- 9150 Jan, [facility] [id number] [place] [address] [id number] Jan, Chronic pain syndrome G89.4 [email or web address] [address] [place] [id number] Dec, History of right knee surgery Z98.890 [facility] [address] [place] [address] 27746- 3460 Dec, [facility] [address] [place] [address] 75509- 5497 Dec, Chronic pain syndrome G89.4 [facility] [address] [place] [address] 03400- 7428 November, Anxiety F41.9 [facility] [address] [place] [address] 32513 -1035 November, Acute cystitis without hematuria N30.00 [facility] [address] [place] [address] 60121 -3062 November, Fever, unspecified fever cause R50.9 and Acute cystitis without hematuria N30.00 [facility] [address] [place] [address] 31387- 8975 November, Chronic pain syndrome G89.4 [facility] [address] [place] [address] 95027- 8285 Oct, Anxiety F41.9 [facility] [address] [address]- 8811 Oct, Chronic pain syndrome G89.4 [facility] [address] [place] [address] 83350- 0507 Oct, Chronic pain syndrome G89.4 [facility] [address] [place] [address]- 6428 Oct, [facility] [address] [place] [address]- 2826 Oct, Chronic pain syndrome G89.4 ; Pain in right knee M25.561 ; History of Clostridium difficile Z87.19 ; Iron deficiency anemia, unspecified iron deficiency anemia type D50.9 ; Peripheral vascular disease, unspecified I73.9 and Atrial fibrillation I48.91 [facility] [id number] [place] [address] 95928- 4416 Oct, [facility] [id number] [place] [address] 49765- 0753 Oct, Chronic pain syndrome G89.4 [facility] [id number] [place] [address] 34862- 7327 Sep, [facility] [id number] [place] [address] 04227- 3334 Sep, Depression, unspecified depression type F32.9 ; Chronic bronchitis, unspecified chronic bronchitis type J42 ; Chronic pain syndrome G89.4 and Anxiety F41.9 [employer] [address] [place] [id number] Sep, History of Clostridium difficile infection Z86.19 and History of stroke Z86.73 [facility] [id number] [place] [address] [id number] Sep, Anxiety F41.9 [facility] [address] [place] [address] 31653- 4445 Sep, Chronic pain syndrome G89.4 [facility] [address] [place] [address] 84188- 9246 Sep, [facility] [id number] [place] [address] [id number] Sep, [facility] [id number] [place] [address] 20515- 6047 Aug, Anxiety F41.9 [facility] [id number] [place] [address] 05134- 0119 Aug, Anxiety F41.9 [facility] [address] [place] [address] 62566- 6393 Aug, [facility] [id number] [place] [address] 63503- 4645 Aug, Acute knee pain, unspecified laterality M25.569 [facility] [id number] [place] [address] 48008- 6257 Aug, [facility] [id number] [place] [address] 46493- 9301 Aug, Chronic pain syndrome G89.4 [facility] [id number] [place] [address] 60606- 7264 Aug, [facility] [id number] [place] [address] 00931- 4741 Aug, [facility] [id number] [place] [address] 85192- 9915 Jul, [facility] [address] [place] [address] 85059- 0917 Jul, Anxiety F41.9 [facility] [id number] [place] [address] 31894- 8344 Jul, Clostridium difficile diarrhea A04.7 [employer] [address] [place] [id number] Jul, Clostridium difficile diarrhea A04.7 ; Chronic pain syndrome G89.4 ; Chronic obstructive pulmon disease w acute lower resp infct J44.0 and Pain in right knee M25.561 [facility] [id number] [place] [address] [id number] Jul, [facility] [address] [place] [address] 68090 -5269 Jul, Anxiety F41.9 and Chronic pain syndrome G89.4 [facility] [address] [place] [address] 86464- 3367 Jun, Anxiety F41.9 [facility] [address], [place] [address]- 2210 Jun, Rheumatoid arthritis 714.0 [facility] [address] [place] [address] 15366- 2504 Jun, Chronic pain syndrome G89.4 [facility] [address] [address]- 1680 Jun, [facility] [address] [place] [address] 20050- 1871 Jun, [facility] [address] [place] [address] 78149- 0508 Jun, History of pneumonia Z87.01 and History of Clostridium difficile Z87.19 [facility] [address] [place] [address]- 4452 Jun, [facility] [address] [place] [address] 10341- 8627 May, [facility] [address] [place] [address]- 8476 May, Anxiety F41.9 [facility] [address] [place] [address]- 2194 May, Chronic pain syndrome G89.4 [facility] [address], [place] [address]- 9342 May, Chronic bronchitis, unspecified chronic bronchitis type J42 [facility] [address] [place] [address]- 4634 May, [facility] [address] [place] [address] 64136- 6705 09 May, 2016 C. difficile diarrhea A04.7 ; Peripheral edema R60.9 ; COPD (chronic obstructive pulmonary disease) J44.9 ; Rheumatoid arthritis, involving unspecified site, unspecified rheumatoid factor presence M06.9 ; Pain in right knee M25.561 ; Pain in left knee M25.562 and Other chronic pain G89.29 [facility] [address] [place] [address]- 9573 May, [facility] [id number] [place] [address] 79421- 9819 May, [facility] [id number] [place] [address] 36596- 9852 May, Anxiety F41.9 [facility] [id number] [place] [address] 50961- 5629 Apr, [facility] [id number] [place] [address] 18499- 3099 Apr, Chronic pain syndrome G89.4 [facility] [id number] [place] [address] 17427- 7408 Apr, Leg pain, left M79.605 [facility] [id number] [place] [address] 59541- 5950 Apr, [facility] [id number] [place] [address] 78202- 0131 Apr, [facility] [id number] [place] [address] 66560- 9398 Apr, [facility] [id number] [place] [address] 97384- 2668 Mar, Chronic pain syndrome G89.4 [facility] [id number] [place] [address] 17547- 3694 Mar, Acute frontal sinusitis, recurrence not specified J01.10 [facility] [id number] [place] [address] 49842- 9669 20 Mar, 2016 Iron deficiency anemia, unspecified iron deficiency anemia type D50.9 ; Rheumatoid arthritis with positive rheumatoid factor, involving unspecified site M05.9 and Depression, unspecified depression type F32.9 [facility] [id number] [place] [address] 98993- 5825 Mar, Iron deficiency anemia, unspecified iron deficiency anemia type D50.9 ; Depression, unspecified depression type F32.9 and Rheumatoid arthritis with positive rheumatoid factor, involving unspecified site M05.9 [facility] [address] [address]- 3893 Mar, [facility] [id number] [place] [address] 52864- 0268 Mar, [facility] [id number] [place] [address] 75582- 1036 Feb, Chronic pain syndrome G89.4 [facility] [id number] [place] [address] 82860- 4677 Feb, 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 ; Status post CVA Z86.73 ; Hemiplegia G81.90 and Anemia, unspecified type D64.9 [facility] [address] [place] [address] 58207- 3963 Feb, [facility] [id number] [place] [address] 88613- 6775 Feb, Anemia, unspecified type D64.9 [facility] [address] [place] [address] 66190- 2016 Feb, [facility] [address] [place] [address] 86728- 2034 Feb, Iron deficiency anemia, unspecified iron deficiency anemia type D50.9 [facility] [address], [place] [address]- 9224 Feb, [facility] [id number] [place] [address] 39691- 4697 Feb, Chronic bronchitis, unspecified chronic bronchitis type J42 [facility] [address] [place] [address] 70055- 9195 Feb, Iron deficiency anemia, unspecified iron deficiency anemia type D50.9 [facility] [address], [place] [address]- 8062 Feb, Chronic pain syndrome G89.4 [facility] [id number] [place] [address] 45339- 5786 Feb, Anemia, unspecified type D64.9 and Hypoxia R09.02 [facility] [id number] [place] [address] 54148- 8367 Feb, Anemia, unspecified type D64.9 [facility] [id number] [place] [address] 82390- 7796 Jan, [facility] [id number] [place] [address] 42280- 5866 Jan, Anemia, unspecified type D64.9 [facility] [id number] [place] [address] 89987- 2377 Jan, [facility] [id number] [place] [address] 66057- 1105 Jan, Anemia, unspecified type D64.9 [facility] [address] [place] [address] 16891- 4385 Jan, Anemia, unspecified type D64.9 [facility] [address] [place] [address] 15641- 1966 Jan, [facility] [address] [place] [address] 94798- 8104 Jan, Anemia, unspecified type D64.9 [facility] [address] [place] [address]- 1432 Jan, [facility] [id number] [place] [address] 47106- 9656 Jan, [facility] [address], [place] [address]- 4934 Jan, Chronic pain syndrome G89.4 [facility] [address] 79666- 9624 Jan, Anemia, unspecified type D64.9 [facility] [address] 23306- 6906 Jan, Dysthymia F34.1 ; Cervicalgia M54.2 ; Fatigue, unspecified type R53.83 and Depression, unspecified depression type F32.9 [facility] [address] 88816- 6294 Dec, [facility] [address] 25910- 8837 Dec, Anxiety F41.9 [facility] [address] 96501- 5519 Dec, Chronic pain syndrome G89.4 [facility] [address] 74839- 0448 November, [facility] [address] 25988- 9169 November, Edema R60.9 and Dizziness R42 [facility] [address] 75516- 4495 November, [facility] [address] 64618- 3268 November, [facility] [address] 62512- 4008 November, COPD (chronic obstructive pulmonary disease) J44.9 ; Increased tracheal secretions J39.8 and Edema R60.9 [facility] [address] 99747 -8308 Oct, [facility] [address] 11953 -6113 Oct, Shortness of breath R06.02 and Edema R60.9 [facility] [address] 06182- 2723 Oct, Chronic bronchitis, unspecified chronic bronchitis type J42 ; Peripheral vascular disease, unspecified I73.9 ; Rheumatoid arthritis M06.9 and Atrial fibrillation I48.91 [facility] [id number] [place] [address] 09895- 5283 Oct, [facility] [id number] [place] [address] 53750- 5882 Oct, [facility] [id number] [place] [address] 36283- 3610 Oct, [facility] [id number] [place] [address] 87144- 8759 Oct, [facility] [id number] [place] [address] 58485 -0878 Oct, COPD exacerbation J44.1 [facility] [id number] [place] [address] 93113- 6525 Sep, [facility] [id number] [place] [address] 32486- 3241 Sep, [facility] [id number] [place] [address] 54370- 0009 Sep, [facility] [id number] [place] [address] 21780- 0068 Aug, [facility] [id number] [place] [address] 27075- 9683 Aug, 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 and PVD (peripheral vascular disease ) I73.9 [facility] [id number] [place] [address] 11089- 0222 Aug, Bronchitis J40 ; COPD (chronic obstructive pulmonary disease ) J44.9 and Dysthymia F34.1 [facility] [id number] [place] [address] 66508- 9490 Aug, [facility] [id number] [place] [address] 80313- 2188 Jul, [facility] [address] [place] [address]- 1268 Jul, [facility] [address] 4518 Jul, [facility] [address] [place] [address]- 4841 Jun, [facility] [id number] [place] [address] Jun, [facility] [id number] [address] Jun, Peripheral vascular disease I73.9 [facility] [id number] [address] Jun, [facility] [id number] [address] Jun, [facility] [id number], [place] [address] Jun, Leg pain, left M79.605 ; Dysphagia, unspecified dysphagia R13.10 ; Insomnia, unspecified type G47.00 ; PVD (peripheral vascular disease) I73.9 and 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 [facility] [id number] [address] May, [facility] [id number] [address] May, [facility] [id number] [address] May, [facility] [id number] [address] May, [facility] [id number] [address] May, [facility] [id number] [address] Apr, [facility] [address] [id number], [place] [address] Apr, [facility] [id number], [place] [address] 90[address] Mar, [facility] [id number], [place] [address] Mar, [facility] [id number], [place] [address] 18[address] Feb, [facility] [id number] [place] [address]- 5087 Feb, Nicotine abuse 305.1 ; Arthralgia 719.40 and 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 [facility] [id number], [place] [address] 65[address] Feb, [facility] [id number], [place] [address] 6[address] Jan, [facility] [id number], [place] [address] 5148 Jan, [facility] [id number], [place] [address] 279[address] Jan, [facility] [id number], [place] [address] 0[address] Jan, [facility] [id number], [place] [address] 35[address] Jan, 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 ; Rheumatoid arthritis 714.0 ; Hypertension 401.9 ; GERD (gastroesophageal reflux disease) 530.81 ; Nicotine addiction 305.1 and Leukocytosis 288.60 [facility] [id number], [place] [address] 1443 Jan, [facility] [id number], [place] [address] 8836 Jan, [facility] [id number], [place] [address] 3986 Jan, [facility] [id number], [place] [address] 1396 Jan, [facility] [id number], [place] [address]- 7866 Jan, [facility] [id number] [place] [address]- 2929 Dec, [facility] [id number], [place] [address]- 1872 Dec, [facility] [id number] [place] [address]- 4854 Dec, [facility] [id number], [place] [address]- 2597 Dec, [facility] [id number] [place] [address]- 7383 November, [facility] [id number], [place] [address]- 3046 November, [facility] [id number], [place] [address] 6439 November, Shortness of breath 786.05 [facility] [id number], [place] [address]- 6236 November, Rheumatoid arthritis 714.0 [facility] [id number], [place] [address]- 9156 November, 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 [facility] [id number], [place] [address] 6271 November, Neuropathy 355.9 ; Insomnia 780.52 ; Dysthymia 300.4 ; Shortness of breath 786.05 ; Rheumatoid arthritis 714.0 and Nausea 787.02 [facility] [id number], [place] [address]- 2851 November, [facility] [place] [facility] [address] [id number] [place] [address]- 2523 November, [facility] [place] [facility] [address] [id number] [place] [address]- 8658 Oct, [facility] [place] [facility] [address] [id number] [place] [address]- 3994 Oct, [facility] [place] [facility] [address] [id number] [place] [address]- 1130 Oct, [facility] [place] [facility] [address] [id number] [place] [address]- 9451 Oct, [facility] [place] [facility] [address] [id number] [place] [address]- 1763 Sep, [facility] [place] [facility] [address] [id number] [place] [address]- 4538 Sep, [facility] [place] [facility] [address] [id number] [place] [address]- 0573 Sep, [facility] [place] [facility] [address] [id number] [place] [address]- 4248 Sep, [facility] [place] [facility] [address] [id number] [place] [address]- 5513 Sep, [facility] [place] [facility] [address] [id number] [place] [address]- 3982 Sep, [facility] [place] [facility] [address] [id number], [place] [address]- 0620 Sep, [facility] [place] [facility] [address] [id number] [place] [address]- 2031 Sep, [facility] [place] [facility] [address] [id number] [place] [address]- 6849 Aug, [facility] [place] [facility] [address] [id number] [place] [address]- 8273 Aug, [facility] [place] [facility] [address] [id number] [place] [address]- 0389 Aug, [facility] [place] [facility] [address] [id number] [place] [address]- 5019 Aug, [facility] [place] [facility] [address] [id number] [place] [address]- 1376 Aug, [facility] [place] [facility] [address] [id number] [place] [address]- 8435 Aug, [facility] [place] [facility] [address] [id number] [place] [address]- 3929 Jul, [facility] [place] [facility] [address] [id number] [place] [address]- 3408 Jul, [facility] [place] [facility] [address] [id number] [place] [address]- 8978 Jul, [facility] [place] [facility] [address] [id number] [place] [address]- 5516 Jul, [facility] [place] [facility] [address] [id number] [place] [address]- 0796 Jul, [facility] [place] [facility] [address] [id number] [place] [address]- 3466 Jul, [facility] [place] [facility] [address] [facility] [place] [id number] [place] [address]- 6657 Jul, [facility] [place] [facility] [address] [id number] [place] [address]- 1403 Jul, [facility] [place] [facility] [address] [id number] [place] [address]- 1315 Jul, [facility] [place] [facility] [address] [id number] [place] [address]- 6002 Jul, [facility] [place] [facility] [address] [id number] [place] [address]- 8532 Jun, [facility] [place] [facility] [address] [id number] [place] 8727 Jun, [facility] [place] [facility] [address] [id number] [place] [address]- 5755 Jun, [facility] [place] [facility] [address] [id number] [place] [address]- 3394 Jun, [facility] [place] [facility] [address] [id number] [place] [address]- 6752 Jun, [facility] [place] [facility] [address] [id number] [place] [address]- 0679 Jun, [facility] [place] [facility] [address] [id number] [place] [address]- 7855 Jun, [facility] [place] [facility] [address] [id number] [place] [address]- 0528 Jun, [facility] [place] [facility] [address] [id number] [place] [address]- 4248 Jun, [facility] [place] [facility] [address] [id number] [place] [address]- 0997 Jun, [facility] [place] [facility] [address] [id number] [place] [address]- 7912 Jun, [facility] [place] [facility] [address] [id number] [place] [address]- 2371 Jun, [facility] [place] [facility] [address] [id number] [place] [address]- 9994 Jun, [facility] [place] [facility] [address] [id number], [place] [address]- 8910 Jun, [facility] [place] [facility] [address] [id number] [place] [address]- 1765 Jun, [facility] [place] [facility] [address] [id number] [place] [address]- 8576 Jun, [facility] [place] [facility] [address] [id number] [place] [address]- 8219 May, [facility] [place] [facility] [address] [id number], [place] [address]- 7283 May, [facility] [place] [facility] [address] [id number] [place] [address]- 2541 May, [facility] [place] [facility] [address] [id number], [place] [address]- 0415 May, [facility] [place] [facility] [address] [facility] [place] [id number] [place] [address]- 8614 May, [facility] [place] [facility] [address] [id number] [place] [address]- 8333 May, [facility] [place] [facility] [address] [id number] [place] [address]- 7522 May, [facility] [place] [facility] [address] [id number] [place] [address]- 6874 May, [facility] [place] [facility] [address] [facility] [place] [id number], [place] [address]- 8583 May, [facility] [place] [facility] [address] [id number], [place] [address]- 7391 Apr, [facility] [place] [facility] [address] [id number], [place] [address]- 4280 Apr, [facility] [place] [facility] [address] [facility] [place] [id number], [place] [address]- 4835 Apr, [facility] [place] [facility] [address] [id number], [place] [address]- 0879 Apr, [facility] [place] [facility] [address] [id number], [place] [address]- 2162 Apr, [facility] [place] [facility] [address] [id number], [place] [address]- 5445 Apr, [facility] [place] [facility] [address] [facility] [place] [id number], [place] [address]- 6897 Apr, [facility] [place] [facility] [address] [facility] [place] [id number], [place] [address]- 9529 Apr, [facility] [place] [facility] [address] [id number] [place] [address]- 1194 07 Apr, 2014 [facility] [place] [facility] [address] [id number] [place] [address]- 6550 Apr, [facility] [place] [facility] [address] [id number] [place] [address]- 2031 Apr, [facility] [place] [facility] [address] [id number] [place] [address]- 9602 Apr, [facility] [place] [facility] [address] [id number] [place] [address]- 8701 Mar, 2013 [facility] [place] [facility] [address] [id number] [place] [address]- 4617 22 Mar, 2013 [facility] [place] [facility] [address] [id number] [place] [address]- 0332 Mar, 2013 [facility] [place] [facility] [address] [id number] [place] [address]- 8855 Mar, 2013 [facility] [place] [facility] [address] [id number] [place] [address]- 1441 Mar, 2013 [facility] [place] [facility] [address] [id number] [place] [address]- 2549 Mar, 2013 [facility] [place] [facility] [address] [id number] [place] [address] 2540 Mar, 2013 [facility] [place] [facility] [address] [id number] [place] [address]- 7722 Mar, 2013 [facility] [place] [facility] [address] [id number] [place] [address] 2545 Mar, 2013 [facility] [place] [facility] [address] [id number] [place] [address]- 2546 Mar, 2013 [facility] [place] [facility] [address] [id number] [place] [address]- 2543 Feb, [facility] [place] [facility] [address] [id number] [place] [address]- 2763 Feb, [facility] [place] [facility] [address] [id number] [place] [address]- 3568 Feb, [facility] [place] [facility] [address] [id number] [place] [address]- 0006 Feb, [facility] [place] [facility] [address] [id number] [place] [address]- 7836 Feb, [facility] [place] [facility] [address] [id number] [place] [address]- 4306 Feb, [facility] [place] [facility] [address] [id number] [place] [address]- 6898 Feb, [facility] [place] [facility] [address] [id number] [place] [address]- 1356 Feb, [facility] [place] [facility] [address] [id number] [place] [address]- 4113 Feb, [facility] [place] [facility] [address] [id number] [place] [address]- 4858 Feb, [facility] [place] [facility] [address] [id number] [place] [address]- 7476 Feb, [facility] [place] [facility] [address] [id number] [place] [address]- 1058 Feb, [facility] [place] [facility] [address] [id number] [place] [address]- 9436 Feb, [facility] [place] [facility] [address] [id number] [place] [address]- 7529 Feb, [facility] [place] [facility] [address] [id number] [place] [address]- 0659 Feb, [facility] [place] [facility] [address] [id number] [place] [address]- 0490 Feb, [facility] [place] [facility] [address] [id number] [place] [address]- 0796 Jan, [facility] [place] [facility] [address] [id number] [place] [address]- 7740 Jan, [facility] [place] [facility] [address] [id number] [place] [address]- 4583 Jan, [facility] [place] [facility] [address] [id number] [place] [address]- 2275 Jan, [facility] [place] [facility] [address] [id number] [place] [address]- 5268 Jan, [facility] [place] [facility] [address] [id number] [place] [address]- 3462 Jan, [facility] [place] [facility] [address] [id number] [place] [address]- 8245 Dec, [facility] [place] [facility] [address] [id number] [place] [address]- 4984 Dec, [facility] [place] [facility] [address] [id number] [place] [address]- 0592 Dec, [facility] [place] [facility] [address] [id number] [place] [address]- 0156 Dec, [facility] [place] [facility] [address] [id number] [place] [address]- 3526 Dec, [facility] [place] [facility] [address] [id number] [place] [address]- 9868 Dec, [facility] [place] [facility] [address] [id number] [place] [address]- 3735 Dec, [facility] [place] [facility] [address] [id number] [place] [address]- 1119 Dec, [facility] [place] [facility] [address] [id number] [place] [address]- 4254 November, [facility] [place] [facility] [address] [id number] [place] [address]- 8734 November, [facility] [place] [facility] [address] [id number] [place] [address]- 9303 November, [facility] [place] [facility] [address] [id number] [place] [address]- 5033 November, [facility] [place] [facility] [address] [id number] [place] [address]- 6483 November, [facility] [place] [facility] [address] [id number] [place] [address]- 0050 November, [facility] [place] [facility] [address] [id number] [place] [address]- 7260 Oct, [facility] [place] [facility] [address] [id number] [place] [address]- 7498 Oct, [facility] [place] [facility] [address] [id number] [place] [address]- 6215 Oct, [facility] [place] [facility] [address] [id number] [place] [address]- 6507 Oct, [facility] [place] [facility] [address] [id number] [place] [address]- 4492 Sep, [facility] [place] [facility] [address] [id number] [place] [address]- 7952 Sep, [facility] [place] [facility] [address] [id number] [place] [address]- 5657 Sep, [facility] [place] [facility] [address] [id number] [place] [address]- 8553 Sep, [facility] [place] [facility] [address] [id number] [place] [address]- 6880 Sep, [facility] [place] [facility] [address] [id number] [place] [address]- 8366 Sep, [facility] [place] [facility] [address] [id number] [place] [address]- 3520 Aug, [facility] [place] [facility] [address] [id number] [place] [address]- 3668 Aug, [facility] [place] [facility] [address] [id number] [place] [address]- 5956 Aug, [facility] [place] [facility] [address] [id number] [place] [address]- 8976 Aug, [facility] [place] [facility] [address] [id number] [place] [address]- 9366 Aug, [facility] [place] [facility] [address] [id number] [place] [address]- 2196 Aug, [facility] [place] [facility] [address] [id number] [place] [address]- 4681 Jul, [facility] [place] [facility] [address] [id number] [place] [address]- 4194 Jul, [facility] [place] [facility] [address] [id number] [place] [address]- 2276 Jul, [facility] [place] [facility] [address] [id number] [place] [address]- 6938 Jul, [facility] [place] [facility] [address] [id number] [place] [address]- 7192 Jul, [facility] [place] [facility] [address] [id number] [place] [address]- 4113 Jul, [facility] [place] [facility] [address] [id number] [place] [address]- 6907 Jul, [facility] [place] [facility] [address] [id number] [place] [address]- 5925 Jul, [facility] [place] [facility] [address] [id number] [place] [address]- 7896 Jul, [facility] [place] [facility] [address] [id number] [place] [address]- 7107 Jul, [facility] [place] [facility] [address] [id number] [place] [address]- 4803 Jul, [facility] [place] [facility] [address] [id number] [place] [address]- 0507 Jul, [facility] [place] [facility] [address] [id number] [place] [address]- 1270 Jul, [facility] [address] [id number] [place] [address]- 6917 Jul, [facility] [address] [id number] [place] [address]- 6229 Jul, [facility] [address] [id number] [place] [address]- 0193 Jun, [facility] [address] [id number] [place] [address]- 3766 Jun, [facility] [address] [id number] [place] 3781 Jun, [facility] [address] [id number] [place] [address]- 1106 Jun, [facility] [address] [id number] [place] [address]- 1708 May, [facility] [address] [id number] [place] [address]655 May, [facility] [address] [id number][place] [id number] May, [facility] [address] [id number] [place] [address]- 0424 May, [facility] [place] [facility] [address] [id number] [place] [address]- 0787 May, [facility] [address] [id number], [place] [address]- 2546 May, [facility] [place] [facility] [address] [id number] [place] [address] May, [facility] [place] [facility] [address] [id number] [place] [address] May, [facility] [address] [id number] [place] [address] May, [facility] [address] [facility] [id number] [place] [id number] May, [facility] [address] [facility] [place] [id number], [place] [address] May, [facility] [address] [facility] [id number][place] [id number] May, [facility] [address] [facility] [place] [place] [id number], [place] [address] May, [facility] [address] [facility] [id number][place] [id number] May, [facility] [address] [facility] [place] [place] [id number], [place] [address] May, IMMUNIZATIONS No Known Immunizations SOCIAL HISTORY Never Assessed REASON FOR VISIT left earache and sore throat for 3 ndays. [email or web address] PLAN OF CARE Activity Details Follow Up prn Reason: VITAL SIGNS Height 63 in 2017-02-14 Weight 177.6 lbs 2017-02-14 Temperature 97.9 degrees Fahrenheit 2017-02-14 Heart Rate 80 bpm 2017-02-14 Respiratory Rate 20 2017-02-14 BMI 31.46 kg/m2 2017-02-14 Blood pressure systolic 112 mmHg 2017-02-14 Blood pressure diastolic 68 mmHg 2017-02-14 MEDICATIONS Medication Instructions Dosage Frequency Start Date End Date Duration Status Ranitidine HCl 150 MG Orally 2 times a day 1 tablet 12h 30 days Active Oxygen 2 L/NC by inhalation route all day and nite ... Feb, Active Spiriva Respimat 2.5 MCG/ACT Inhalation Once a day 1 puff 24h Oct, 30 days Active Hydrocodone-Acetaminophen 5-325 MG Orally every 4 hrs 1-2 tablet as needed 4h Jan, Active Ciprodex 0.3-0.1 % Otic Twice a day 4 drops into affected ear 12h Feb, 07 days Active Cholecalciferol 1000 UNIT Orally Once a day 1 capsule 24h Active Pravastatin Sodium 10 mg Orally Once a day 1 tablet 24h 30 days Active Cetirizine HCl 10 MG Orally Once a day 1 tablet 24h Active Multi Adult Gummies - Active Xanax 0.5 MG Orally Once a day 1 tablet at bedtime 24h 06 Jan, 2015 28 days Active Montelukast Sodium 10 mg Orally Once a day at HS 1 tablet in the evening Active Verapamil HCl ER 120 MG Orally Once a day 1 tablet in the morning with food 24h 90 Active Doxepin HCl 25 MG Orally Once a day 1 capsule at bedtime 24h 30 days Active Zoloft 50 mg Orally Once a day 1 tablet 24h 13 Mar, 2016 30 days Active Symbicort 160-4.5 MCG/ACT Inhalation Twice a day 2 puffs 12h 20 Oct, 2015 30 days Active Albuterol Sulfate (2.5 MG/3ML) 0.083% Inhalation every 6 hrs 3 ml 6h 30 days Active Nexium 40 MG Orally Once a day 1 capsule 24h 30 Active Enbrel 50 MG/ML Subcutaneous once weekly on Thursday 1 ml Active Voltaren 1 % Transdermal 2 times a day 4 gm 12h 12 Oct, 2016 Feb, 30 days Active Oxycodone-Acetaminophen 5-325 MG Orally 3 times a day 1 tablet 8h 18 Jan, 2017 21 days Active Probiotic - Active Vitamin C 500 mg Orally Once a day 2 tablets 24h Feb, Active Aspirin EC 81 MG Orally Once a day 1 tablet 24h 30 Active Gabapentin 300 MG Orally 3 times a day 2 capsules 8h 30 days Active RESULTS No Results PROCEDURES Procedure Date Ordered Result Body Site STREP A ASSAY W/OPTIC Feb 14, 2017 [facility] VISIT ESTABLISHED PATIENT Feb 14, 2017 INSTRUCTIONS MEDICATIONS ADMINISTERED No Known [...] leukocytosis--[facility] 01/08/16 Hospitalization History pseudomemranous colitis, sepsis--[facility] 04/21/2016 Hospitalization History C Diff--[facility] 05/10/2016 Hospitalization History sepsis, pneumonia, diarrhea--[facility] 06/11/16 Hospitalization History recurrent cdiff, pneumonia-[facility] 07/22/16 Hospitalization History sepsis,pneumonia- [facility]
--- OUTSIDE RECORDS SUMMARY | 2018-03-18 20:25 | XMS REPORT ---
Author Author MIKHAIL RIVAS 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 341053342 Problem Leg pain, left M79.605 Active 792895989 Problem Edema R60.9 Active 446813241 Problem Anxiety F41.9 Active 58305000 Problem Chronic pain syndrome G89.4 Active 593237076 Problem Chronic obstructive pulmon disease w acute lower resp infct J44.0 Active Problem Other chronic pain G89.29 Active 86221436 Problem PVD (peripheral vascular disease) I73.9 Active 389794814 Problem Insomnia, unspecified type G47.00 Active 223234508 Problem Dysphagia, unspecified dysphagia R13.10 Active 64804891 Problem Anemia, unspecified type D64.9 Active 651337875 Problem Depression, unspecified depression type F32.9 Active 86525357 Problem Rheumatoid arthritis, involving unspecified site, unspecified rheumatoid factor presence M06.9 Active 46865872 Problem Iron deficiency anemia, unspecified iron deficiency anemia type D50.9 Active 85011427 Problem 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 813857560 Problem Osteoarthritis of foot M19.079 Active 416398853 Problem Peripheral vascular disease, unspecified I73.9 Active 372899775 Problem History of cerebrovascular accident with current residual effects I69.90 Active 367360682 Problem Rheumatoid arthritis M06.9 Active 91216448 Problem Atrial fibrillation I48.91 Active 11845593 Problem Hypertension I10 Active 49715393 Problem COPD (chronic obstructive pulmonary disease) J44.9 Active 69565564 ALLERGIES No Information SOCIAL HISTORY Never Assessed [...] leukocytosis--[facility] 01/08/16 Hospitalization History pseudomemranous colitis, sepsis--[facility] 04/21/2016 Hospitalization History C Diff--[facility] 05/10/2016 Hospitalization History sepsis, pneumonia, diarrhea--[facility] 06/11/16 Hospitalization History recurrent cdiff, pneumonia-[facility] 07/22/16
--- OUTSIDE RECORDS SUMMARY | 2018-03-18 20:25 | XMS REPORT ---
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 344539916 Problem Edema R60.9 Active 178305848 Problem Leg pain, left M79.605 Active 236720360 Problem Chronic pain syndrome G89.4 Active 912852317 Problem Depression, unspecified depression type F32.9 Active 51957508 Problem Anxiety F41.9 Active 03485266 Problem Primary insomnia F51.01 Active 9409215 Problem Chronic obstructive pulmon disease w acute lower resp infct J44.0 Active Problem Peripheral vascular disease, unspecified I73.9 Active 573402599 Problem PVD (peripheral vascular disease) I73.9 Active 592731107 Problem Dysphagia, unspecified dysphagia R13.10 Active 73580940 Problem Iron deficiency anemia, unspecified iron deficiency anemia type D50.9 Active 38958745 Problem Anemia, unspecified type D64.9 Active 265966344 Problem Other chronic pain G89.29 Active 50769892 Problem Rheumatoid arthritis, involving unspecified site, unspecified rheumatoid factor presence M06.9 Active 85188447 Problem 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 Diff Drug Allergy Oct, Active SOCIAL HISTORY Never Assessed PLAN OF CARE Activity Details Follow Up 4 Weeks Reason:surgical clearance VITAL SIGNS Height 63 in 2016-10-22 Weight 165 lbs 2016-10-22 Temperature 97.0 degrees Fahrenheit 2016-10-22 Heart Rate 78 bpm 2016-10-22 Respiratory Rate 18 2016-10-22 BMI 29.23 kg/m2 2016-10-22 Blood pressure systolic 110 mmHg 2016-10-22 Blood pressure diastolic 70 mmHg 2016-10-22 MEDICATIONS Medication Instructions Dosage Frequency Start Date End Date Duration Status Oxygen 2 L/NC by inhalation route all day and nite ... Feb, Active Aspirin EC 81 MG Orally Once a day 1 tablet 24h 30 Active Doxepin HCl 25 MG Orally Once a day 1 capsule at bedtime 24h 30 days Active Zoloft 50 mg Orally Once a day 1 tablet 24h 13 Mar, 2016 30 days Active Montelukast Sodium 10 mg Orally Once a day at HS 1 tablet in the evening Active Voltaren 1 % Transdermal 2 times a day 4 gm 12h Oct, Feb, 30 days Active Symbicort 160-4.5 MCG/ACT Inhalation Twice a day 2 puffs 12h Oct, Active Probiotic - Active Ranitidine HCl 150 MG Orally 2 times a day 1 tablet 12h 30 days Active Nexium 24HR 20 MG Orally Once a day 1 capsule 24h Active Spiriva Respimat 2.5 MCG/ACT Inhalation Once a day 1 puff 24h Oct, 30 days Active Verapamil HCl CR 120 MG Orally Once a day 1 tablet in the morning with food 24h 90 Active Gabapentin 300 MG Orally 2 times a day 2 capsules 12h 30 days Active Albuterol Sulfate (2.5 MG/3ML) 0.083% Inhalation every 6 hrs 3 ml 6h 30 days Active Xanax 0.5 MG Orally Once a day 1 tablet at bedtime 24h Jan, 28 days Active Cholecalciferol 1000 UNIT Orally Once a day 1 capsule 24h Active Vitamin C 500 MG Orally twice a day 1 tablet 12h Feb, 30 day(s ) Active Pravastatin Sodium 10 mg Orally Once a day 1 tablet 24h 30 days Active Cetirizine HCl 10 MG Orally Once a day 1 tablet 24h Active Multi Adult Gummies - Active Hydrocodone-Acetaminophen 10-325 MG Orally 3 times a day 1 tablet as needed 8h Oct, 7 days Active RESULTS No Results PROCEDURES Procedure Date Ordered Result Body Site [facility] VISIT ESTABLISHED PATIENT October 22, 2016 IMMUNIZATIONS No Known Immunizations MEDICAL (GENERAL) HISTORY [...] leukocytosis--[facility] 01/08/16 Hospitalization History pseudomemranous colitis, sepsis--[facility] 04/21/2016 Hospitalization History C Diff--[facility] 05/10/2016 Hospitalization History sepsis, pneumonia, diarrhea--[facility] 06/11/16 Hospitalization History recurrent cdiff, pneumonia-[facility] 07/22/16 Hospitalization History sepsis,pneumonia- [facility]
--- OUTSIDE RECORDS SUMMARY | 2018-03-18 20:26 | XMS REPORT ---
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 666669514 Problem Edema R60.9 Active 524553398 Problem Leg pain, left M79.605 Active 798533725 Problem Chronic pain syndrome G89.4 Active 880230130 Problem Depression, unspecified depression type F32.9 Active 11212565 Problem Anxiety F41.9 Active 21665401 Problem Primary insomnia F51.01 Active 9232467 Problem Chronic obstructive pulmon disease w acute lower resp infct J44.0 Active Problem Peripheral vascular disease, unspecified I73.9 Active 208699263 Problem PVD (peripheral vascular disease) I73.9 Active 832982934 Problem Dysphagia, unspecified dysphagia R13.10 Active 49241213 Problem Iron deficiency anemia, unspecified iron deficiency anemia type D50.9 Active 88052556 Problem Anemia, unspecified type D64.9 Active 909214638 Problem Other chronic pain G89.29 Active 00772255 Problem Rheumatoid arthritis, involving unspecified site, unspecified rheumatoid factor presence M06.9 Active 97119632 Problem 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 509795593 Problem Osteoarthritis of foot M19.079 Active 651456527 Problem History of cerebrovascular accident with current residual effects I69.90 Active 814894466 Problem Hypertension I10 Active 77372298 Problem Dysthymia F34.1 Active 36008693 Problem COPD (chronic obstructive pulmonary disease) J44.9 Active 48436462 Problem Rheumatoid arthritis M06.9 Active 60124171 Problem Atrial fibrillation I48.91 Active 84012485 ALLERGIES No Information SOCIAL HISTORY Never Assessed PLAN OF CARE VITAL SIGNS MEDICATIONS Medication Instructions Dosage Frequency Start Date End Date Duration Status Hydrocodone-Acetaminophen 10-325 MG Orally 3 times a day 1 tablet as needed 8h November, 28 days Active RESULTS No Results PROCEDURES [...] leukocytosis--[facility] 01/08/16 Hospitalization History pseudomemranous colitis, sepsis--[facility] 04/21/2016 Hospitalization History C Diff--[facility] 05/10/2016 Hospitalization History sepsis, pneumonia, diarrhea--[facility] 06/11/16 Hospitalization History recurrent cdiff, pneumonia-[facility] 07/22/16 Hospitalization History sepsis,pneumonia- [facility]
--- OUTSIDE RECORDS SUMMARY | 2018-03-18 20:26 | XMS REPORT ---
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 910857097 Problem Edema R60.9 Active 590212040 Problem Leg pain, left M79.605 Active 249629249 Problem Chronic pain syndrome G89.4 Active 183637338 Problem Depression, unspecified depression type F32.9 Active 57393854 Problem Anxiety F41.9 Active 12641251 Problem Primary insomnia F51.01 Active 8235434 Problem Chronic obstructive pulmon disease w acute lower resp infct J44.0 Active Problem Peripheral vascular disease, unspecified I73.9 Active 902416639 Problem PVD (peripheral vascular disease) I73.9 Active 637278588 Problem Dysphagia, unspecified dysphagia R13.10 Active 07850769 Problem Iron deficiency anemia, unspecified iron deficiency anemia type D50.9 Active 33286608 Problem Anemia, unspecified type D64.9 Active 769754497 Problem Other chronic pain G89.29 Active 87919819 Problem Rheumatoid arthritis, involving unspecified site, unspecified rheumatoid factor presence M06.9 Active 16463352 Problem 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 514805787 Problem Osteoarthritis of foot M19.079 Active 488683285 Problem History of cerebrovascular accident with current residual effects I69.90 Active 297298197 Problem Hypertension I10 Active 83416756 Problem Dysthymia F34.1 Active 32531969 Problem COPD (chronic obstructive pulmonary disease) J44.9 Active 01916333 Problem Rheumatoid arthritis M06.9 Active 69218290 Problem Atrial fibrillation I48.91 Active 92223301 ALLERGIES No Information SOCIAL HISTORY Never Assessed [...] leukocytosis--[facility] 01/08/16 Hospitalization History pseudomemranous colitis, sepsis--[facility] 04/21/2016 Hospitalization History C Diff--[facility] 05/10/2016 Hospitalization History sepsis, pneumonia, diarrhea--[facility] 06/11/16 Hospitalization History recurrent cdiff, pneumonia-[facility] 07/22/16 Hospitalization History sepsis,pneumonia- [facility]
--- OUTSIDE RECORDS SUMMARY | 2018-03-18 20:27 | XMS REPORT ---
Author Author DAPHNE YUSUF Organization [facility] Address [address] [place] [address] Care Team Providers Care Pharmacy Student Name Role Phone DAPHNE YUSUF Unavailable PROBLEMS Type Condition ICD9-CM Code MBN56-VH Code Onset Dates Condition Status SNOMED Code Problem Hx of Clostridium difficile infection Z86.19 Active 991758720 Problem History of arthroplasty of right knee Z96.651 Active 524882945 Problem Dysphagia, unspecified dysphagia R13.10 Active 55628719 Problem Chronic pain syndrome G89.4 Active 408747041 Problem 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 315303485 Problem Anxiety F41.9 Active 67114499 Problem Leg pain, left M79.605 Active 069132987 Problem Depression, unspecified depression type F32.9 Active 03587227 Problem Iron deficiency anemia, unspecified iron deficiency anemia type D50.9 Active 84186969 Problem Anemia, unspecified type D64.9 Active 101311868 Problem Seasonal allergic rhinitis due to pollen J30.1 Active 83244370 Problem Insomnia, unspecified G47.00 Active 370834052 Problem 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 686432270 Problem History of cerebrovascular accident with current residual effects I69.90 Active 017555549 Problem Peripheral vascular disease, unspecified I73.9 Active 688749846 Problem Rheumatoid arthritis, involving unspecified site, unspecified rheumatoid factor presence M06.9 Active 22034570 Problem Other chronic pain G89.29 Active 11800809 Problem Primary insomnia F51.01 Active 9800511 Problem Chronic obstructive pulmon disease w acute lower resp infct J44.0 Active 019708608 Problem Atrial fibrillation I48.91 Active 23554728 Problem Dysthymia F34.1 Active 18562329 Problem Osteoarthritis of foot M19.079 Active 250897479 Problem Rheumatoid arthritis M06.9 Active 22700950 Problem Tobacco abuse, 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 511289310 Problem Edema R60.9 Active 554329970 Problem COPD (chronic obstructive pulmonary disease) J44.9 Active 59744510 Problem Hypertension I10 Active 59936203 ALLERGIES No Information ENCOUNTERS Encounter Location Date Diagnosis [facility] [id number] [place] [address] 43807- 9510 Sep, Left upper quadrant pain R10.12 ; Chronic pain syndrome G89.4 ; Left lower quadrant pain R10.32 ; Other chronic pain G89.29 ; Sacrococcygeal disorders, not elsewhere classified M53.3 and Seasonal allergic rhinitis due to pollen J30.1 [facility] [id number] [place] [address] 18571- 6559 Sep, Chronic pain syndrome G89.4 [facility] [id number] [place] [address] 23013- 9758 Sep, [facility] [id number] [place] [address] 47021- 5980 Aug, Chronic pain syndrome G89.4 [facility] [id number] [place] [address] 76444- 0995 Aug, [facility] [id number] [place] [address] 47918- 5893 Aug, Insomnia, unspecified G47.00 [facility] [id number] [place] [address] 67213- 7028 Jul, [facility] [id number] [place] [address] 73314- 6935 Jul, [facility] [id number] [place] [address] 74517- 7551 Jul, Chronic pain syndrome G89.4 [facility] [id number] [place] [address] 48301- 0546 Jun, Chronic pain syndrome G89.4 [facility] [id number] [place] [address] 11055- 2418 04 Dec, 2017 Chronic pain syndrome G89.4 [facility] [id number] [place] [address] 58139- 2998 May, [facility] [id number] [place] [address] 18027- 7821 May, Shortness of breath R06.02 ; Peripheral vascular disease, unspecified I73.9 ; Pain in right knee M25.561 ; Other chronic pain G89.29 ; Chest wall pain R07.89 ; Chronic pain syndrome G89.4 ; Primary insomnia F51.01 and Ear pain, left H92.02 [facility] [id number] [place] [address] 72336- 9629 May, Anxiety F41.9 [facility] [id number] [place] [address] 05777- 4707 Apr, Pneumonia due to infectious organism, unspecified laterality , unspecified part of lung J18.9 ; Hypoxia R09.02 ; Bradycardia R00.1 ; History of Clostridium difficile Z87.19 and Primary insomnia F51.01 [facility] [id number] [place] [address] 42332- 9052 Apr, Anxiety F41.9 [facility] [id number] [place] [address] 67320- 2333 Apr, [facility] [id number] [place] [address] 23370- 0663 Mar, Anxiety F41.9 [facility] [id number] [place] [address] 25949- 5532 Feb, [facility] [id number] [place] [address] 19738- 4312 Feb, [facility] [address] 02468- 0067 Feb, Abnormal finding on urinalysis R82.90 [facility] [id number] [place] [address] 39537- 2618 Feb, [facility] [id number] [place] [address] 47986- 1709 Feb, Shortness of breath R06.02 ; Tachycardia R00.0 ; Cough R05 ; Ill feeling R68.89 and Abnormal finding on urinalysis R82.90 [facility] [id number] [place] [address] 62510- 8038 Feb, Anxiety F41.9 [facility] [id number] [place] [address] 65509 -5980 Feb, Sore throat J02.9 and Acute diffuse otitis externa of left ear H60.312 [facility] [address] 77632- 2430 Jan, [facility] [id number] [place] [address] 01679- 2482 Jan, [facility] [address] [id number] Jan, [facility] [id number] [place] [address] 81290- 5330 Jan, Depression, unspecified depression type F32.9 ; Chronic bronchitis, unspecified chronic bronchitis type J42 ; Chronic pain syndrome G89.4 and Anxiety F41.9 [facility] [id number] [place] [address] 35433- 3721 Jan, [facility] [id number] [place] [address] 88114- 4470 Jan, [facility] [id number] [place] [address] 40239- 6560 Jan, [facility] [address] [id number] Jan, Chronic pain syndrome G89.4 [facility] [address] [id number] Dec, History of right knee surgery Z98.890 [facility] [id number] [place] [address] 26856- 1429 Dec, [facility] [address] [address]- 6339 Dec, Chronic pain syndrome G89.4 [facility] [id number] [address]- 2985 November, Anxiety F41.9 [facility] [id number] [place] [address] 91210 -8727 November, Acute cystitis without hematuria N30.00 [facility] [id number] [place] [address] 31691 -0849 November, Fever, unspecified fever cause R50.9 and Acute cystitis without hematuria N30.00 [facility] [id number] [address]- 4489 November, Chronic pain syndrome G89.4 [facility] [id number] [place] [address] 79196- 1316 Oct, Anxiety F41.9 [facility] [id number] [place] [address] 12053- 1303 Oct, Chronic pain syndrome G89.4 [facility] [id number] [address]- 9716 Oct, Chronic pain syndrome G89.4 [facility] [id number] [address]- 8623 Oct, [facility] [address] [address]- 4912 Oct, Chronic pain syndrome G89.4 ; Pain in right knee M25.561 ; History of Clostridium difficile Z87.19 ; Iron deficiency anemia, unspecified iron deficiency anemia type D50.9 ; Peripheral vascular disease, unspecified I73.9 and Atrial fibrillation I48.91 [facility] [address] [address]- 2448 Oct, [facility] [id number] [address] 7915 Oct, Chronic pain syndrome G89.4 [facility] [address] 6312 Sep, [facility] [address] [address]- 4299 Sep, Depression, unspecified depression type F32.9 ; Chronic bronchitis, unspecified chronic bronchitis type J42 ; Chronic pain syndrome G89.4 and Anxiety F41.9 [facility] [address] [id number] Sep, History of Clostridium difficile infection Z86.19 and History of stroke Z86.73 [facility] [id number] [place] [address] [id number] Sep, Anxiety F41.9 [facility] [id number] [place] [address] 47963- 7472 Sep, Chronic pain syndrome G89.4 [facility] [id number] [address]- 4718 Sep, [facility] [id number] [place] [address] [id number] Sep, [facility] [id number] [address]- 6862 23 Aug, 2016 Anxiety F41.9 [facility] [id number] [place] [address] 44979- 5101 21 Aug, 2016 Anxiety F41.9 [facility] [id number] [address]- 1131 16 Aug, 2016 [facility] [id number] [place] [address] 20533- 7757 14 Aug, 2016 Acute knee pain, unspecified laterality M25.569 [facility] [id number] [address]- 9408 13 Aug, 2016 [facility] [id number] [address]- 7707 Aug, Chronic pain syndrome G89.4 [facility] [id number] [place] [address] 11872- 5937 Aug, [facility] [id number] [place] [address] 324718- 4857 Aug, [facility] [id number] [place] [address] 58327- 9439 Jul, [facility] [id number] [place] [address] 43337- 6100 Jul, Anxiety F41.9 [facility] [id number] [place] [address] 65900- 9692 Jul, Clostridium difficile diarrhea A04.7 [facility] [address] [id number] Jul, Clostridium difficile diarrhea A04.7 ; Chronic pain syndrome G89.4 ; Chronic obstructive pulmon disease w acute lower resp infct J44.0 and Pain in right knee M25.561 [facility] [id number] [place] [address] [id number] Jul, [facility] [id number] [address] -2700 Jul, Anxiety F41.9 and Chronic pain syndrome G89.4 [facility] [id number] [place] [address] 80795- 6157 Jun, Anxiety F41.9 [facility] [id number] [place] [address] 82433- 3741 Jun, Rheumatoid arthritis 714.0 [facility] [id number] [place] [address] 81098- 1822 Jun, Chronic pain syndrome G89.4 [facility] [id number] [place] [address] 80461- 3512 Jun, [facility] [id number] [address]- 7589 13 Jun, 2016 [facility] [address] [address]- 5769 12 Jun, 2016 History of pneumonia Z87.01 and History of Clostridium difficile Z87.19 [facility] [address] [address]- 3122 06 Jun, 2016 [facility] [id number] [place] [address] 41071- 3537 May, [facility] [id number] [place] [address] 23329- 3920 May, Anxiety F41.9 [facility] [id number] [place] [address] 85608- 2707 May, Chronic pain syndrome G89.4 [facility] [id number] [place] [address] 60333- 9057 May, Chronic bronchitis, unspecified chronic bronchitis type J42 [facility] [id number] [address]- 3207 May, [facility] [address] [address]- 2878 May, C. difficile diarrhea A04.7 ; Peripheral edema R60.9 ; COPD (chronic obstructive pulmonary disease) J44.9 ; Rheumatoid arthritis, involving unspecified site, unspecified rheumatoid factor presence M06.9 ; Pain in right knee M25.561 ; Pain in left knee M25.562 and Other chronic pain G89.29 [facility] [address] [address]- 9861 May, [facility] [id number] [place] [address] 88259- 1040 May, [facility] [address] [address]- 5874 May, Anxiety F41.9 [facility] [id number] [address]- 1402 Apr, [facility] [id number] [address]- 8485 Apr, Chronic pain syndrome G89.4 [facility] [address] [address]- 6700 Apr, Leg pain, left M79.605 [facility] [id number] [place] [address] 07661- 6468 Apr, [facility] [id number] [place] [address] 00018- 1771 Apr, [facility] [id number] [place] [address] 23250- 2296 Apr, [facility] [id number] [place] [address] 97869- 4234 Mar, Chronic pain syndrome G89.4 [facility] [address] [address]- 0208 Mar, Acute frontal sinusitis, recurrence not specified J01.10 [facility] [address] [address]- 6632 20 Mar, 2016 Iron deficiency anemia, unspecified iron deficiency anemia type D50.9 ; Rheumatoid arthritis with positive rheumatoid factor, involving unspecified site M05.9 and Depression, unspecified depression type F32.9 [facility] [address] [address]- 3046 13 Mar, 2016 Iron deficiency anemia, unspecified iron deficiency anemia type D50.9 ; Depression, unspecified depression type F32.9 and Rheumatoid arthritis with positive rheumatoid factor, involving unspecified site M05.9 [facility] [address] [address]- 7810 Mar, [facility] [id number] [address]- 2089 Mar, [facility] [id number] [place] [address] 67773- 5689 Feb, Chronic pain syndrome G89.4 [facility] [id number] [place] [address] 31966- 2131 30 Feb, 2016 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 ; Status post CVA Z86.73 ; Hemiplegia G81.90 and Anemia, unspecified type D64.9 [facility] [id number] [place] [address] 90270- 6948 Feb, [facility] [id number] [place] [address] 56081- 1764 Feb, Anemia, unspecified type D64.9 [facility] [id number] [place] [address] 56696- 0929 Feb, [facility] [id number] [place] [address] 08835- 0103 Feb, Iron deficiency anemia, unspecified iron deficiency anemia type D50.9 [facility] [id number] [place] [address] 72826- 6788 Feb, [facility] [id number] [place] [address] 13630- 4025 Feb, Chronic bronchitis, unspecified chronic bronchitis type J42 [facility] [id number] [place] [address] 56304- 2585 Feb, Iron deficiency anemia, unspecified iron deficiency anemia type D50.9 [facility] [id number] [place] [address] 29982- 7138 Feb, Chronic pain syndrome G89.4 [facility] [id number] [place] [address] 87609- 0856 Feb, Anemia, unspecified type D64.9 and Hypoxia R09.02 [facility] [id number] [place] [address] 75277- 7988 Feb, Anemia, unspecified type D64.9 [facility] [id number] [address]- 3162 Jan, [facility] [id number] [place] [address] 25332- 1867 Jan, Anemia, unspecified type D64.9 [facility] [id number] [address]- 1124 Jan, [facility] [id number] [place] [address] 39515- 2296 Jan, Anemia, unspecified type D64.9 [facility] [id number] [place] [address] 36000- 6445 Jan, Anemia, unspecified type D64.9 [facility] [id number] [place] [address] 27947- 8465 Jan, [facility] [id number] [place] [address] 26869- 0357 Jan, Anemia, unspecified type D64.9 [facility] [address] [address]- 5530 Jan, [facility] [id number] [place] [address] 37920- 5659 Jan, [facility] [address] [address]- 3415 Jan, Chronic pain syndrome G89.4 [facility] [id number] [place] [address] 47511- 8019 Jan, Anemia, unspecified type D64.9 [facility] [address] [address]- 8890 Jan, Dysthymia F34.1 ; Cervicalgia M54.2 ; Fatigue, unspecified type R53.83 and Depression, unspecified depression type F32.9 [facility] [address] [address]- 0953 Dec, [facility] [id number] [place] [address] 80796- 3025 14 Dec, 2015 Anxiety F41.9 [facility] [address] 31951- 6824 08 Dec, 2015 Chronic pain syndrome G89.4 [facility] [address] 76599- 3090 November, [facility] [address] 22580- 2695 November, Edema R60.9 and Dizziness R42 [facility] [address] 17254- 6309 November, [facility] [address] 57445- 9441 November, [facility] [address] 22130- 2155 November, COPD (chronic obstructive pulmonary disease) J44.9 ; Increased tracheal secretions J39.8 and Edema R60.9 [facility] [place] [facility] [place] [address] [address]03 -7069 Oct, [facility] [place] [facility] [place] [address] 89680 -1247 Oct, Shortness of breath R06.02 and Edema R60.9 [facility] [id number] [place] [address] 13724- 2799 Oct, Chronic bronchitis, unspecified chronic bronchitis type J42 ; Peripheral vascular disease, unspecified I73.9 ; Rheumatoid arthritis M06.9 and Atrial fibrillation I48.91 [facility] [address] 70431- 5281 Oct, [facility] [id number] [place] [address] 88229- 1669 Oct, [facility] [address] 31575- 4364 Oct, [facility] [address] [address]- 4534 Oct, [facility] [address] [address] -7248 Oct, COPD exacerbation J44.1 [facility] [id number] [address]- 0704 Sep, [facility] [id number] [place] [address] 79551- 1880 Sep, [facility] [id number] [place] [address] 86461- 5163 Sep, [facility] [id number] [place] [address] 20603- 2523 Aug, [facility] [id number] [place] [address] 39613- 7048 Aug, 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 and PVD (peripheral vascular disease ) I73.9 [facility] [id number] [place] [address] 28787- 2510 Aug, Bronchitis J40 ; COPD (chronic obstructive pulmonary disease ) J44.9 and Dysthymia F34.1 [facility] [address] [address]- 0681 Aug, [facility] [id number] [place] [address] 49073- 1587 Jul, [facility] [address] [address]- 3404 Jul, [facility] [id number] [place] [address] 91076- 3420 Jul, [facility] [address] [address]- 5237 Jun, [facility] [id number] [place] [address] 12456- 7459 Jun, [facility] [address] 0442 Jun, Peripheral vascular disease I73.9 [facility] [address] [address]- 0462 Jun, [facility] [address] 3011 Jun, [facility] [id number] [place] [address] 369419- 3878 Jun, Leg pain, left M79.605 ; Dysphagia, unspecified dysphagia R13.10 ; Insomnia, unspecified type G47.00 ; PVD (peripheral vascular disease) I73.9 and 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 [facility] [address] [address]- 0294 May, [facility] [id number] [place] [address] 65553- 3568 May, [facility] [address] 0612 May, [facility] [id number] [address]- 6129 May, [facility] [address] [address]- 5705 May, [facility] [id number] [id number] Apr, [facility] [id number] [address] Apr, [facility] [id number] [place] [id number] Mar, [facility] [id number] [address] Mar, [facility] [address] [address] [address] Feb, [facility] [id number] [address] Feb, Nicotine abuse 305.1 ; Arthralgia 719.40 and 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 [facility] [id number] [address] Feb, [facility] [id number] [address] Jan, [facility] [id number] [address] Jan, [facility] [id number] [address] Jan, [facility] [id number] [address] Jan, [facility] [id number] [address] Jan, 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 ; Rheumatoid arthritis 714.0 ; Hypertension 401.9 ; GERD (gastroesophageal reflux disease) 530.81 ; Nicotine addiction 305.1 and Leukocytosis 288.60 [facility] [id number], [place] [address] Jan, [facility] [id number] [address] Jan, [facility] [address] [id number] [address] Jan, [facility] [id number] [address] Jan, [facility] [id number] [address] 1699 Jan, [facility] [address] [id number] [address] 45[address] Dec, [facility] [id number] [address] Dec, [facility] [id number] [place] [address]- 1048 Dec, [facility] [address] [id number] [address] 2[address] Dec, [facility] [id number] [place] [address] 15790- 2499 November, [facility] [id number] [place] [address] 21293- 2976 November, [facility] [id number] [place] [address] 37879- 0731 November, Shortness of breath 786.05 [facility] [id number] [place] [address] 57[address]- 5766 November, Rheumatoid arthritis 714.0 [facility] [id number] [place] [address] 40190- 7587 November, 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 [facility] [id number] [place] [address] 136328- 4249 November, Neuropathy 355.9 ; Insomnia 780.52 ; Dysthymia 300.4 ; Shortness of breath 786.05 ; Rheumatoid arthritis 714.0 and Nausea 787.02 [facility] [id number] [address] 0[address] November, [facility] [id number] [address]- 5950 November, [facility] [id number] [place] [address] 55589- 4910 Oct, [facility] [id number] [address] 1096 Oct, [facility] [id number] [place] [address] 65[address]- 8431 Oct, [facility] [place] [facility] [address] [id number] [place] [address]- 8819 Oct, [facility] [place] [facility] [address] [id number] [place] [address]- 1694 Sep, [facility] [place] [facility] [address] [id number] [place] [address]- 6382 Sep, [facility] [place] [facility] [address] [id number] [place] [address]- 8748 Sep, [facility] [place] [facility] [address] [id number] [place] [address]- 2918 Sep, [facility] [place] [facility] [address] [id number] [place] [address]- 6943 Sep, [facility] [place] [facility] [address] [id number] [place] [address]- 8867 Sep, [facility] [place] [facility] [address] [id number] [place] [address]- 3720 Sep, [facility] [place] [facility] [address] [id number] [place] [address]- 0235 Sep, [facility] [place] [facility] [address] [id number] [place] [address]- 6470 Aug, [facility] [place] [facility] [address] [id number] [address] 5268 Aug, 2014 [facility] [place] [facility] [address] [id number] [address]- 8100 Aug, 2014 [facility] [place] [facility] [address] [id number] [place] [address]- 9150 Aug, 2014 [facility] [place] [facility] [address] [id number] [place] [address]- 8147 Aug, [facility] [place] [facility] [address] [id number] [place] [address]- 5507 Aug, 2014 [facility] [place] [facility] [address] [id number] [place] [address]- 6227 Jul, [facility] [address] [id number] [place] [address]- 7382 Jul, [facility] [place] [facility] [address] [id number] [place] [address]- 7109 Jul, [facility] [address] [id number] [place] [address]- 4953 Jul, [facility] [address] [id number] [place] [address]- 1006 Jul, [facility] [address] [id number] [place] [address]- 7348 Jul, [facility] [address] [id number] [place] [address]- 3638 Jul, [facility] [address] [id number] [place] [address]- 8510 Jul, [facility] [address] [id number] [place] [address]- 7001 Jul, [facility] [address] [id number] [place] [address]- 1639 Jul, [facility] [address] [id number] [place] [address]- 7269 Jun, [facility] [place] [facility] [address] [id number] [place] [address]- 1426 Jun, [facility] [place] [facility] [address] [id number] [place] [address]- 3983 Jun, [facility] [place] [facility] [address] [id number] [place] [address]- 8680 Jun, [facility] [place] [facility] [address] [id number] [place] [address]- 5518 Jun, [facility] [place] [facility] [address] [id number] [place] 2345 Jun, [facility] [place] [facility] [address] [id number] [place] [address]- 6693 Jun, [facility] [place] [facility] [address] [id number] [place] [address]- 2104 Jun, [facility] [place] [facility] [address] [id number] [place] [address]- 6882 Jun, [facility] [place] [facility] [address] [id number] [place] [address]- 1123 Jun, [facility] [place] [facility] [address] [id number] [place] [address]- 4253 Jun, [facility] [place] [facility] [address] [id number] [place] [address]- 7293 Jun, [facility] [place] [facility] [address] [id number] [place] [address]- 8477 Jun, [facility] [place] [facility] [address] [id number] [place] [address]- 5981 Jun, [facility] [place] [facility] [address] [id number] [place] [address]- 9996 Jun, [facility] [place] [facility] [address] [id number] [place] [address]- 1022 Jun, [facility] [place] [facility] [address] [id number] [address]- 7176 May, [facility] [place] [facility] [address] [id number] [address]- 0231 May, [facility] [place] [facility] [address] [id number] [place] [address]- 3093 May, [facility] [place] [facility] [address] [id number] [place] [address]- 3114 May, [facility] [place] [facility] [address] [id number] [place] [address]- 4500 May, [facility] [place] [facility] [address] [id number] [address]- 5763 May, [facility] [place] [facility] [address] [id number] [place] [address]- 9680 May, [facility] [place] [facility] [address] [id number] [address]- 9420 May, [facility] [place] [facility] [address] [facility] [id number] [place] [address]- 6647 May, [facility] [place] [facility] [address] [id number] [address]- 2094 Apr, [facility] [place] [facility] [address] [id number] [place] [address]- 2334 Apr, [facility] [place] [facility] [address] [id number] [address]- 9691 Apr, [facility] [place] [facility] [address] [facility] [id number] [address]- 3896 Apr, [facility] [place] [facility] [address] [id number] [address]- 8140 Apr, [facility] [place] [facility] [address] [facility] [id number] [address]- 9412 Apr, [facility] [place] [facility] [address] [facility] [id number] [address]- 7102 Apr, [facility] [place] [facility] [address] [id number] [address]- 4201 Apr, [facility] [place] [facility] [address] [id number] [place] [address]- 3906 Apr, [facility] [place] [facility] [address] [id number] [address]- 2582 Apr, [facility] [place] [facility] [address] [facility] [id number] [address]- 5301 Apr, [facility] [place] [facility] [address] [facility] [id number] [address]- 1123 Apr, [facility] [place] [facility] [address] [id number] [place] [address]- 7915 22 Mar, 2013 [facility] [place] [facility] [address] [id number] [place] [address]- 4396 22 Mar, 2013 [facility] [place] [facility] [address] [id number] [place] [address] 2546 Mar, 2013 [facility] [place] [facility] [address] [id number] [place] [address] 2546 Mar, 2013 [facility] [place] [facility] [address] [id number] [place] [address] 2549 Mar, 2013 [facility] [place] [facility] [address] [id number] [place] [address]- 8686 Mar, 2013 [facility] [place] [facility] [address] [id number] [place] [address]- 8691 Mar, 2013 [facility] [place] [facility] [address] [id number] [place] [address]- 1865 Mar, 2013 [facility] [place] [facility] [address] [id number] [place] [address]- 4976 Mar, 2013 [facility] [place] [facility] [address] [id number] [place] [address]- 2541 Mar, 2013 [facility] [place] [facility] [address] [id number] [place] [address]- 5583 Feb, [facility] [place] [facility] [address] [id number] [place] [address]- 7210 Feb, [facility] [place] [facility] [address] [id number] [place] [address]- 2542 Feb, [facility] [place] [facility] [address] [id number] [place] [address]- 2546 Feb, [facility] [place] [facility] [address] [id number] [place] [address]- 254 Feb, [facility] [place] [facility] [address] [id number] [place] [address]- 3432 Feb, [facility] [place] [facility] [address] [id number] [place] [address]- 2388 Feb, [facility] [place] [facility] [address] [id number] [place] [address]- 9234 Feb, [facility] [place] [facility] [address] [id number] [place] [address]- 2677 Feb, [facility] [place] [facility] [address] [id number] [place] [address]- 7191 Feb, [facility] [place] [facility] [address] [id number] [place] [address]- 0473 Feb, [facility] [place] [facility] [address] [id number] [place] [address]- 5999 Feb, [facility] [place] [facility] [address] [id number] [place] [address]- 7808 Feb, [facility] [place] [facility] [address] [id number] [place] [address]- 5344 Feb, [facility] [place] [facility] [address] [id number] [place] [address]- 0005 Feb, [facility] [place] [facility] [address] [id number] [place] [address]- 4926 Feb, [facility] [place] [facility] [address] [id number] [place] [address]- 6619 Jan, [facility] [place] [facility] [address] [id number] [place] [address]- 7673 Jan, [facility] [place] [facility] [address] [id number] [place] [address]- 7102 Jan, [facility] [place] [facility] [address] [id number] [place] [address]- 3694 Jan, [facility] [place] [facility] [address] [id number] [place] [address]- 7466 Jan, [facility] [place] [facility] [address] [id number] [place] [address]- 2221 Jan, [facility] [place] [facility] [address] [id number] [place] [address]- 3090 Dec, [facility] [place] [facility] [address] [id number] [place] [address]- 2539 Dec, [facility] [place] [facility] [address] [id number] [place] [address]- 1702 Dec, [facility] [place] [facility] [address] [id number] [place] [address]- 7012 Dec, [facility] [place] [facility] [address] [id number] [place] [address]- 6808 Dec, [facility] [place] [facility] [address] [id number] [place] [address]- 9072 Dec, [facility] [place] [facility] [address] [id number] [place] [address]- 1499 Dec, [facility] [place] [facility] [address] [id number] [place] [address]- 9578 Dec, [facility] [place] [facility] [address] [id number] [place] [address]- 6623 November, [facility] [place] [facility] [address] [id number] [place] [address]- 6228 November, [facility] [place] [facility] [address] [id number] [place] [address]- 4824 November, [facility] [place] [facility] [address] [id number] [place] [address]- 4014 November, [facility] [place] [facility] [address] [id number] [place] [address]- 0500 November, [facility] [place] [facility] [address] [id number] [place] [address]- 0138 November, [facility] [place] [facility] [address] [id number] [place] [address]- 0614 Oct, [facility] [place] [facility] [address] [id number] [place] [address]- 5603 Oct, [facility] [place] [facility] [address] [id number] [place] [address]- 7784 Oct, [facility] [place] [facility] [address] [id number] [place] [address]- 3330 Oct, [facility] [place] [facility] [address] [id number] [place] [address]- 2377 Sep, [facility] [place] [facility] [address] [id number] [place] [address]- 4492 Sep, [facility] [place] [facility] [address] [id number] [place] [address]- 7362 Sep, [facility] [place] [facility] [address] [id number] [place] [address]- 0578 Sep, [facility] [place] [facility] [address] [id number] [place] [address]- 3046 Sep, [facility] [place] [facility] [address] [id number] [place] [address]- 3791 Sep, [facility] [place] [facility] [address] [id number] [place] [address]- 7072 Aug, [facility] [place] [facility] [address] [id number] [place] [address]- 3739 Aug, [facility] [place] [facility] [address] [id number] [place] [address]- 0709 Aug, [facility] [place] [facility] [address] [id number] [place] [address]- 7183 Aug, [facility] [place] [facility] [address] [id number] [place] [address]- 4085 Aug, [facility] [place] [facility] [address] [id number] [place] [address]- 9970 Aug, [facility] [place] [facility] [address] [id number] [place] [address]- 1648 Jul, [facility] [address] [id number] [place] [address]- 5958 Jul, [facility] [place] [facility] [address] [id number] [place] [address]- 8332 Jul, [facility] [place] [facility] [address] [id number] [place] [address]- 1183 Jul, [facility] [place] [facility] [address] [id number] [place] [address]- 1328 Jul, [facility] [place] [facility] [address] [id number] [place] [address]- 4851 Jul, [facility] [place] [facility] [address] [id number] [place] [address]- 8463 Jul, [facility] [place] [facility] [address] [id number] [place] [address]- 2390 Jul, [facility] [place] [facility] [address] [id number] [place] [address]- 8934 Jul, [facility] [place] [facility] [address] [id number] [place] [address]- 1589 Jul, [facility] [place] [facility] [address] [id number] [place] [address]- 0861 Jul, [facility] [place] [facility] [address] [id number] [place] [address]- 0113 Jul, [facility] [place] [facility] [address] [id number] [place] [address]- 4896 Jul, [facility] [place] [facility] [address] [id number] [place] [address]- 3765 Jul, [facility] [place] [facility] [address] [id number] [place] [address]- 2504 Jul, [facility] [place] [facility] [address] [id number] [place] [address]- 9339 Jun, [facility] [place] [facility] [address] [id number] [place] [address]- 1236 18 Jun, 2013 [facility] [address] [id number] [place] [address]- 0856 Jun, [facility] [place] [facility] [address] [id number] [place] [address]- 9271 Jun, [facility] [place] [facility] [address] [id number] [place] [address]- 6174 May, [facility] [place] [facility] [address] [id number] [place] [address]- 3166 May, [facility] [address] [id number] [place] [id number] May, [facility] [address] [id number] [place] [address]- 9374 May, [facility] [place] [facility] [address] [id number] [place] [address]- 0018 May, [facility] [address] [id number] [place] [address]- 6862 May, [facility] [address] [id number] [place] [address]- 8275 May, [facility] [address] [id number] [place] [address]- 3887 May, [facility] [place] [facility] [address] [id number] [place] [address]- 0690 16 May, 2013 [facility] [address] [id number] [id number] May, [facility] [place] [facility] [address] [id number] [place] [address]- 3816 May, [facility] [address] [id number] [place] [id number] May, [facility] [place] [facility] [address] [id number] [place] [address]- 0868 May, [facility] [address] [facility] [id number] [place] [id number] May, [facility] [address] [facility] [id number] [place] [id number] May, IMMUNIZATIONS No Known Immunizations SOCIAL HISTORY Never Assessed REASON FOR VISIT Request for DC orders PLAN OF CARE VITAL SIGNS MEDICATIONS Unknown [...] leukocytosis--[facility] 01/08/16 Hospitalization History pseudomemranous colitis, sepsis--[facility] 04/21/2016 Hospitalization History C Diff--[facility] 05/10/2016 Hospitalization History sepsis, pneumonia, diarrhea--[facility] 06/11/16 Hospitalization History recurrent cdiff, pneumonia-[facility] 07/22/16 Hospitalization History sepsis,pneumonia- [facility]
--- OUTSIDE RECORDS SUMMARY | 2018-03-18 20:28 | XMS REPORT ---
Author Author DAPHNE YUSUF Organization [facility] Address [address] [place] [address] Care Team Providers Care Vp Scientific Name Role Phone DAPHNE YUSUF Unavailable PROBLEMS Type Condition ICD9-CM Code KJN45-HR Code Onset Dates Condition Status SNOMED Code Problem Hx of Clostridium difficile infection Z86.19 Active 277344115 Problem History of arthroplasty of right knee Z96.651 Active 529423135 Problem Dysphagia, unspecified dysphagia R13.10 Active 91096362 Problem Chronic pain syndrome G89.4 Active 986038530 Problem 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 597422591 Problem Anxiety F41.9 Active 05931438 Problem Leg pain, left M79.605 Active 488938956 Problem Depression, unspecified depression type F32.9 Active 92336697 Problem Iron deficiency anemia, unspecified iron deficiency anemia type D50.9 Active 61603750 Problem Anemia, unspecified type D64.9 Active 593647188 Problem Seasonal allergic rhinitis due to pollen J30.1 Active 49327505 Problem Insomnia, unspecified G47.00 Active 334372295 Problem 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 155282476 Problem History of cerebrovascular accident with current residual effects I69.90 Active 176735190 Problem Peripheral vascular disease, unspecified I73.9 Active 671672820 Problem Rheumatoid arthritis, involving unspecified site, unspecified rheumatoid factor presence M06.9 Active 42829805 Problem Other chronic pain G89.29 Active 47497023 Problem Primary insomnia F51.01 Active 5548167 Problem Chronic obstructive pulmon disease w acute lower resp infct J44.0 Active 064615730 Problem Atrial fibrillation I48.91 Active 78012830 Problem Dysthymia F34.1 Active 84386446 Problem Osteoarthritis of foot M19.079 Active 704829476 Problem Rheumatoid arthritis M06.9 Active 36692205 Problem Tobacco abuse, 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 Diff Drug Allergy Feb, Active ENCOUNTERS Encounter Location Date Diagnosis [facility] [id number] [place] [address] 82595- 2806 Oct, Chronic pain syndrome G89.4 [facility] [address] 22060- 3338 Oct, [place] [address] [address]30- 9629 Oct, [facility] [address] 41723- 7563 Sep, Left upper quadrant pain R10.12 ; Chronic pain syndrome G89.4 ; Left lower quadrant pain R10.32 ; Other chronic pain G89.29 ; Sacrococcygeal disorders, not elsewhere classified M53.3 and Seasonal allergic rhinitis due to pollen J30.1 [facility] [facility] [address] 81574- 0013 Sep, Chronic pain syndrome G89.4 [facility] [facility] [id number] [place] [address] 76290- 6684 Sep, [facility] [id number] [place] [address] 21954- 8481 Aug, Chronic pain syndrome G89.4 [facility] [id number] [place] [address] 49398- 8310 Aug, [facility] [address] 68947- 5703 Aug, Insomnia, unspecified G47.00 [facility] [id number] [place] [address] 82882- 0356 Jul, [facility] [address] [place] [address]- 7349 Jul, [facility] [address] [address] 8621 Jul, Chronic pain syndrome G89.4 [facility] [address] [address]- 6855 Jun, Chronic pain syndrome G89.4 [facility] [id number] [place] [address] 28728- 8215 Jun, Chronic pain syndrome G89.4 [facility] [id number] [place] [address] 49608- 4051 May, [place] [id number] [place] [address] 76267- 7762 May, Shortness of breath R06.02 ; Peripheral vascular disease, unspecified I73.9 ; Pain in right knee M25.561 ; Other chronic pain G89.29 ; Chest wall pain R07.89 ; Chronic pain syndrome G89.4 ; Primary insomnia F51.01 and Ear pain, left H92.02 [place] [address] [place] [address] 49412- 3372 May, Anxiety F41.9 [place] [facility] [address] [address]- 3925 Apr, Pneumonia due to infectious organism, unspecified laterality , unspecified part of lung J18.9 ; Hypoxia R09.02 ; Bradycardia R00.1 ; History of Clostridium difficile Z87.19 and Primary insomnia F51.01 [facility] [address] [address]- 5684 Apr, Anxiety F41.9 [facility] [id number] [place] [address] 61056- 4744 Apr, [facility] [id number] [place] [address] 84206- 9582 Mar, Anxiety F41.9 [facility] [id number] [place] [address] 58476- 0322 Feb, [facility] [address] 03239- 4364 Feb, [facility] [id number] [place] [address] 99724- 9960 Feb, Abnormal finding on urinalysis R82.90 [facility] [address] 85571- 5026 Feb, [facility] [address] 33671- 8516 Feb, Shortness of breath R06.02 ; Tachycardia R00.0 ; Cough R05 ; Ill feeling R68.89 and Abnormal finding on urinalysis R82.90 [place] [id number] [place] [address] 85503- 3931 Feb, Anxiety F41.9 [facility] [address] 50037 -5445 Feb, Sore throat J02.9 and Acute diffuse otitis externa of left ear H60.312 [facility] [address] 59098- 3120 Jan, [facility] [id number] [place] [address] 35366- 0245 Jan, [facility] [address] [id number] Jan, [facility] [id number] [place] [address] 03320- 8532 Jan, Depression, unspecified depression type F32.9 ; Chronic bronchitis, unspecified chronic bronchitis type J42 ; Chronic pain syndrome G89.4 and Anxiety F41.9 [facility] [id number] [place] [address] 28360- 8223 Jan, [facility] [address] 12343- 2739 Jan, [facility] [id number] [place] [address] 15974- 2874 Jan, [facility] [id number] [place] [address] [id number] Jan, Chronic pain syndrome G89.4 [facility] [address] [place] [id number] Dec, History of right knee surgery Z98.890 [facility] [id number] [place] [address] 37515- 7137 Dec, [facility] [id number] [place] [address] 31016- 8048 Dec, Chronic pain syndrome G89.4 [facility] [id number] [place] [address] 28336- 1383 November, Anxiety F41.9 [facility] [id number] [place] [address] 17398 -8027 November, Acute cystitis without hematuria N30.00 [facility] [id number] [place] [address] 96475 -5383 November, Fever, unspecified fever cause R50.9 and Acute cystitis without hematuria N30.00 [facility] [id number] [place] [address] 02773- 6800 November, Chronic pain syndrome G89.4 [facility] [id number] [place] [address] 20086- 2645 Oct, Anxiety F41.9 [facility] [id number] [place] [address] 22403- 9932 Oct, Chronic pain syndrome G89.4 [facility] [id number] [place] [address] 13210- 7046 Oct, Chronic pain syndrome G89.4 [facility] [id number] [place] [address] 81704- 4228 Oct, [place] [address] [address]- 6929 Oct, Chronic pain syndrome G89.4 ; Pain in right knee M25.561 ; History of Clostridium difficile Z87.19 ; Iron deficiency anemia, unspecified iron deficiency anemia type D50.9 ; Peripheral vascular disease, unspecified I73.9 and Atrial fibrillation I48.91 [place] [address] [place] [address] 69541- 4729 Oct, [place] [address] [place] [address] 29252- 7253 Oct, Chronic pain syndrome G89.4 [place] [address] [place] [address] 59479- 8655 Sep, [place] [id number] [place] [address] 84935- 1055 Sep, Depression, unspecified depression type F32.9 ; Chronic bronchitis, unspecified chronic bronchitis type J42 ; Chronic pain syndrome G89.4 and Anxiety F41.9 [email or web address] [address] [place] [id number] Sep, History of Clostridium difficile infection Z86.19 and History of stroke Z86.73 [place] [id number] [place] [address] [id number] Sep, Anxiety F41.9 [place] [id number] [place] [address] 01173- 7683 Sep, Chronic pain syndrome G89.4 [place] [address] [address]- 7557 Sep, [place] [facility] [id number] [place] [address] [id number] Sep, [place] [id number] [place] [address] 07939- 3550 Aug, Anxiety F41.9 [place] [id number] [place] [address] 78208- 9459 Aug, Anxiety F41.9 [facility] [id number] [place] [address] 95710- 0747 Aug, [facility] [id number] [place] [address] 36695- 5209 14 Aug, 2016 Acute knee pain, unspecified laterality M25.569 [facility] [id number] [place] [address] 26512- 0602 Aug, [facility] [id number] [place] [address] 27069- 5089 Aug, Chronic pain syndrome G89.4 [facility] [id number] [place] [address] 79807- 3102 Aug, [facility] [id number] [place] [address] 96170- 1143 Aug, [facility] [id number] [place] [address] 47516- 1281 Jul, [facility] [id number] [place] [address] 51241- 6223 Jul, Anxiety F41.9 [facility] [id number] [place] [address] 98110- 3833 Jul, Clostridium difficile diarrhea A04.7 [employer] [facility] [address] [place] [id number] Jul, Clostridium difficile diarrhea A04.7 ; Chronic pain syndrome G89.4 ; Chronic obstructive pulmon disease w acute lower resp infct J44.0 and Pain in right knee M25.561 [facility] [id number] [place] [address] [id number] Jul, [facility] [id number] [place] [address] 63149 -8639 Jul, Anxiety F41.9 and Chronic pain syndrome G89.4 [facility] [id number] [place] [address] 74938- 6480 Jun, Anxiety F41.9 [facility] [address] [address]- 4016 Jun, Rheumatoid arthritis 714.0 [facility] [address] [address]- 5466 Jun, Chronic pain syndrome G89.4 [facility] [address] [address]- 1346 Jun, [facility] [address] [address]- 1971 Jun, [facility] [id number] [place] [address] 37685- 9210 Jun, History of pneumonia Z87.01 and History of Clostridium difficile Z87.19 [facility] [address] [address]- 9892 Jun, [facility] [address] [address]- 7028 May, [facility] [address] [address]- 4477 May, Anxiety F41.9 [facility] [address] [address]- 8359 May, Chronic pain syndrome G89.4 [facility] [address] [address]- 6292 May, Chronic bronchitis, unspecified chronic bronchitis type J42 [facility] [address] [address]- 3173 May, [facility] [id number] [place] [address] 37378- 7619 09 May, 2016 C. difficile diarrhea A04.7 ; Peripheral edema R60.9 ; COPD (chronic obstructive pulmonary disease) J44.9 ; Rheumatoid arthritis, involving unspecified site, unspecified rheumatoid factor presence M06.9 ; Pain in right knee M25.561 ; Pain in left knee M25.562 and Other chronic pain G89.29 [facility] [id number] [place] [address] 28371- 1684 May, [facility] [id number] [place] [address] 49309- 2477 May, [facility] [id number] [place] [address] 25220- 1098 May, Anxiety F41.9 [facility] [id number] [place] [address] 53651- 0509 Apr, [facility] [id number] [place] [address] 10757- 7898 Apr, Chronic pain syndrome G89.4 [facility] [id number] [place] [address] 21437- 0370 Apr, Leg pain, left M79.605 [facility] [id number] [place] [address] 60087- 8905 Apr, [facility] [id number] [place] [address] 72119- 1232 Apr, [facility] [id number] [place] [address] 10916- 0915 Apr, [facility] [id number] [place] [address] 54482- 7360 Mar, Chronic pain syndrome G89.4 [facility] [id number] [place] [address] 04101- 4541 Mar, Acute frontal sinusitis, recurrence not specified J01.10 [facility] [id number] [place] [address] 40527- 8442 20 Mar, 2016 Iron deficiency anemia, unspecified iron deficiency anemia type D50.9 ; Rheumatoid arthritis with positive rheumatoid factor, involving unspecified site M05.9 and Depression, unspecified depression type F32.9 [facility] [id number] [place] [address] 51966- 5491 Mar, Iron deficiency anemia, unspecified iron deficiency anemia type D50.9 ; Depression, unspecified depression type F32.9 and Rheumatoid arthritis with positive rheumatoid factor, involving unspecified site M05.9 [facility] [id number] [place] [address] 24280- 5559 Mar, [place] [facility] [id number] [place] [address] 99429- 2197 Mar, [place] [id number] [place] [address] 93514- 8181 Feb, Chronic pain syndrome G89.4 [place] [id number] [place] [address] 52492- 6681 Feb, 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 ; Status post CVA Z86.73 ; Hemiplegia G81.90 and Anemia, unspecified type D64.9 [place] [id number] [place] [address] 00976- 8920 Feb, [place] [facility] [id number] [place] [address] 46996- 1136 Feb, Anemia, unspecified type D64.9 [place] [facility] [address] [place] [address] 01630- 4279 Feb, [place] [id number] [place] [address] 07058- 6565 Feb, Iron deficiency anemia, unspecified iron deficiency anemia type D50.9 [place] [id number] [place] [address] 64662- 1208 Feb, [place] [id number] [place] [address] 43212- 7581 Feb, Chronic bronchitis, unspecified chronic bronchitis type J42 [place] [id number] [place] [address] 56593- 1097 Feb, Iron deficiency anemia, unspecified iron deficiency anemia type D50.9 [facility] [address] [address]- 4376 Feb, Chronic pain syndrome G89.4 [facility] [id number] [place] [address] 46299- 2150 Feb, Anemia, unspecified type D64.9 and Hypoxia R09.02 [facility] [address] [place] [address] 57743- 1659 Feb, Anemia, unspecified type D64.9 [facility] [id number] [place] [address] 15135- 8748 Jan, [facility] [id number] [place] [address] 53970- 3925 Jan, Anemia, unspecified type D64.9 [facility] [address] [address]- 3986 Jan, [facility] [id number] [place] [address] 48455- 3705 Jan, Anemia, unspecified type D64.9 [facility] [id number] [place] [address] 83174- 9081 Jan, Anemia, unspecified type D64.9 [facility] [address] [address]- 4953 Jan, [facility] [address] [address]- 254 Jan, Anemia, unspecified type D64.9 [facility] [address] [address]- 7798 Jan, [facility] [address] [address]- 6376 Jan, [facility] [address] [address]- 7914 Jan, Chronic pain syndrome G89.4 [facility] [id number] [place] [address] 94183- 7787 Jan, Anemia, unspecified type D64.9 [place] [address] 67130- 2131 Jan, Dysthymia F34.1 ; Cervicalgia M54.2 ; Fatigue, unspecified type R53.83 and Depression, unspecified depression type F32.9 [place] [address] 81788- 3677 Dec, [place] [address] 56334- 2577 Dec, Anxiety F41.9 [place] [address] 92616- 2862 Dec, Chronic pain syndrome G89.4 [place] [address] 92369- 3716 November, [place] [address] 56419- 9335 November, Edema R60.9 and Dizziness R42 [place] [address] 14741- 5488 November, [place] [facility] [address] 96417- 5345 November, [place] [facility] [address] 19915- 3775 November, COPD (chronic obstructive pulmonary disease) J44.9 ; Increased tracheal secretions J39.8 and Edema R60.9 [facility] [id number] [place] [address] 78598 -2977 Oct, [facility] [address] 40332 -8221 Oct, Shortness of breath R06.02 and Edema R60.9 [place] [address] 07550- 3873 Oct, Chronic bronchitis, unspecified chronic bronchitis type J42 ; Peripheral vascular disease, unspecified I73.9 ; Rheumatoid arthritis M06.9 and Atrial fibrillation I48.91 [facility] [id number] [place] [address] 76674- 5663 Oct, [facility] [id number] [place] [address] 33169- 7974 Oct, [facility] [id number] [place] [address] 31924- 5041 Oct, [facility] [id number] [place] [address] 59396- 4639 Oct, [facility] [id number] [place] [address] 97483 -0843 Oct, COPD exacerbation J44.1 [facility] [address] 09068- 3710 Sep, [facility] [id number] [place] [address] 78765- 5090 Sep, [facility] [address] 13781- 4734 Sep, [facility] [id number] [place] [address] 18304- 7649 Aug, [facility] [id number] [place] [address] 34031- 1486 Aug, 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 and PVD (peripheral vascular disease ) I73.9 [facility] [id number] [place] [address] 44207- 0537 Aug, Bronchitis J40 ; COPD (chronic obstructive pulmonary disease ) J44.9 and Dysthymia F34.1 [facility] [id number] [place] [address] 40177- 7515 Aug, [facility] [id number] [place] [address] [place] [address]- 9468 Jul, [facility] [address] [address]- 7935 Jul, [facility] [address] 7136 Jul, [facility] [id number] [place] [address] 651461- 2626 Jun, [facility] [id number] [place] [address] 084778- 5879 Jun, [facility] [id number] [place] [address] 225084- 4840 Jun, Peripheral vascular disease I73.9 [facility] [id number] [place] [address] 498687- 5059 Jun, [facility] [id number] [place] [address] 44908- 6113 Jun, [facility] [address] [address]- 3400 Jun, Leg pain, left M79.605 ; Dysphagia, unspecified dysphagia R13.10 ; Insomnia, unspecified type G47.00 ; PVD (peripheral vascular disease) I73.9 and 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 [facility] [address] [address]- 2355 May, [facility] [address] [address]- 4620 May, [facility] [address] [address]- 5686 May, [facility] [address] [address]- 8461 May, [facility] [address] [address] May, [facility] [address] [address] Apr, [facility] [id number] [place] [address] Apr, [facility] [address] [address] Mar, [facility] [id number] [place] [address] Mar, [facility] [id number] [place] [address]- [address] Feb, [facility] [id number] [place] [address] Feb, Nicotine abuse 305.1 ; Arthralgia 719.40 and 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 [facility] [address] [address] Feb, [facility] [id number] [place] [address]- [address] Jan, [facility] [id number] [place] [address]- [address] Jan, [facility] [address] [address] Jan, [facility] [address] [address] Jan, [facility] [address] [address] Jan, 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 ; Rheumatoid arthritis 714.0 ; Hypertension 401.9 ; GERD (gastroesophageal reflux disease) 530.81 ; Nicotine addiction 305.1 and Leukocytosis 288.60 [facility] [address]005[address] [address] Jan, [facility] [address] [id number] [address] Jan, [facility] [address] [address] Jan, [facility] [address] [address] 9[address] Jan, [facility] [address]005[address] [address] 7911 Jan, [facility] [id number] [place] [address]- 1461 Dec, [facility] [id number] [place] [address]43- 8828 Dec, [facility] [id number] [place] [address] 20[address]- 3754 Dec, [facility] [address] [id number] [address] 5116 Dec, [facility] [address] [address] 1701 November, [facility] [address] [address] November, [facility] [address]005[address] [address] 1698 November, Shortness of breath 786.05 [facility] [address]005[address] [address] 237[address] November, Rheumatoid arthritis 714.0 [facility] [address] [address] 7813 November, 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 [facility] [id number] [place] [address]- 0233 November, Neuropathy 355.9 ; Insomnia 780.52 ; Dysthymia 300.4 ; Shortness of breath 786.05 ; Rheumatoid arthritis 714.0 and Nausea 787.02 [facility] [address] [address] 8784 November, [facility] [place] [facility] [address] [id number] [place] [address] 0752 November, [facility] [place] [facility] [address] [id number] [place] [address]- 0770 Oct, [facility] [place] [facility] [address] [id number] [place] [address]- 3009 Oct, [facility] [place] [facility] [address] [id number] [place] [address]- 3896 Oct, [facility] [place] [facility] [address] [id number] [place] [address]- 5828 Oct, [facility] [place] [facility] [address] [id number] [place] [address]- 0127 Sep, [facility] [place] [facility] [address] [id number] [place] [address]- 9495 Sep, [facility] [place] [facility] [address] [id number] [place] [address]- 7548 Sep, [facility] [place] [facility] [address] [id number] [place] [address]- 2762 Sep, [facility] [place] [facility] [address] [id number] [place] [address]- 2839 Sep, [facility] [place] [facility] [address] [id number] [place] [address]- 5034 Sep, [facility] [place] [facility] [address] [id number] [place] [address]- 7441 Sep, [facility] [place] [facility] [address] [id number] [place] [address]- 3267 Sep, [facility] [place] [facility] [address] [id number] [place] [address] Aug, [facility] [place] [facility] [address] [id number] [place] [address]- 9534 Aug, [facility] [place] [facility] [address] [id number] [place] [address]- 7485 Aug, [facility] [place] [facility] [address] [id number] [place] [address]- 9956 Aug, [facility] [place] [facility] [address] [id number] [place] [address]- 1756 Aug, [facility] [place] [facility] [address] [id number] [place] [address]- 7286 Aug, [facility] [place] [facility] [address] [id number] [place] [address]- 6503 Jul, [facility] [place] [facility] [address] [id number] [place] [address]- 3566 Jul, [facility] [place] [facility] [address] [id number] [place] [address]- 9812 Jul, [facility] [place] [facility] [address] [id number] [place] [address]- 0061 Jul, [facility] [place] [facility] [address] [id number] [place] [address]- 6893 Jul, [facility] [place] [facility] [address] [id number] [place] [address]- 2153 Jul, [facility] [place] [facility] [address] [id number] [place] [address]- 0925 Jul, [facility] [place] [facility] [address] [id number] [place] [address]- 3199 Jul, [facility] [place] [facility] [address] [id number] [place] [address]- 1785 Jul, [facility] [place] [facility] [address] [id number] [place] [address]- 4226 Jul, [facility] [place] [facility] [address] [id number] [place] [address]- 3969 Jun, [facility] [place] [facility] [address] [id number] [place] [address]- 7570 Jun, [facility] [place] [facility] [address] [id number] [place] [address]- 7501 Jun, [facility] [place] [facility] [address] [id number] [place] [address]- 0643 Jun, [facility] [place] [facility] [address] [id number] [place] 5919 Jun, [facility] [place] [facility] [address] [id number] [place] [address]- 1777 Jun, [facility] [place] [facility] [address] [id number] [place] [address]- 4556 Jun, [facility] [place] [facility] [address] [id number] [place] [address]- 9397 Jun, [facility] [place] [facility] [address] [id number] [place] [address]- 6964 Jun, [facility] [place] [facility] [address] [id number] [place] [address]- 5703 Jun, [facility] [place] [facility] [address] [id number] [place] [address]- 4335 Jun, [facility] [place] [facility] [address] [id number] [place] [address]- 8950 Jun, [facility] [place] [facility] [address] [id number] [place] [address]- 6623 Jun, [facility] [place] [facility] [address] [id number] [address]- 8541 Jun, [facility] [place] [facility] [address] [id number] [place] [address]- 6643 Jun, [facility] [place] [facility] [address] [id number] [place] [address]- 0110 Jun, [facility] [place] [facility] [address] [id number] [place] [address]- 1462 May, [facility] [place] [facility] [address] [id number] [place] [address]- 3562 May, [facility] [place] [facility] [address] [id number] [place] [address]- 5564 May, [facility] [place] [facility] [address] [id number] [place] [address]- 9670 May, [facility] [place] [facility] [address] [id number] [place] [address]- 4111 May, [facility] [place] [facility] [address] [id number] [place] [address]- 4500 May, [facility] [place] [facility] [address] [id number] [place] [address]- 3843 May, [facility] [place] [facility] [address] [id number] [place] [address]- 6445 May, [facility] [place] [facility] [address] [id number] [place] [address]- 0125 May, [facility] [place] [facility] [address] [id number] [place] [address]- 9610 Apr, [facility] [place] [facility] [address] [id number] [place] [address]- 5684 Apr, [facility] [place] [facility] [address] [facility] [id number] [place] [address]- 0277 Apr, [facility] [place] [facility] [address] [id number] [place] [address]- 0057 Apr, [facility] [place] [facility] [address] [id number] [address]- 4432 Apr, [facility] [place] [facility] [address] [id number] [place] [address]- 5949 Apr, [facility] [place] [facility] [address] [id number] [place] [address]- 8937 Apr, [facility] [place] [facility] [address] [id number] [place] [address]- 7602 Apr, [facility] [place] [facility] [address] [id number] [place] [address]- 4667 Apr, [facility] [place] [facility] [address] [id number] [place] [address]- 3318 Apr, [facility] [place] [facility] [address] [id number] [place] [address]- 2158 Apr, [facility] [place] [facility] [address] [id number] [place] [address]- 9323 Apr, [facility] [place] [facility] [address] [id number] [place] [address]- 4323 Mar, [facility] [place] [facility] [address] [id number] [place] [address]- 4428 Mar, [facility] [place] [facility] [address] [id number] [place] [address]- 7065 Mar, [facility] [place] [facility] [address] [id number] [place] [address]- 3613 Mar, 2013 [facility] [place] [facility] [address] [id number] [place] [address]- 4605 Mar, [facility] [place] [facility] [address] [id number] [place] [address]- 8937 Mar, [facility] [place] [facility] [address] [id number] [place] [address]- 6449 Mar, [facility] [place] [facility] [address] [id number] [place] [address]- 6688 Mar, 2013 [facility] [place] [facility] [address] [id number] [place] [address]- 4499 Mar, [facility] [place] [facility] [address] [id number] [place] [address]- 2963 Mar, [facility] [place] [facility] [address] [id number] [place] [address]- 3836 Feb, [facility] [place] [facility] [address] [id number] [place] [address]- 1675 Feb, [facility] [place] [facility] [address] [id number] [place] [address]- 7530 Feb, [facility] [place] [facility] [address] [id number] [place] [address]- 3958 Feb, [facility] [place] [facility] [address] [id number] [place] [address]- 9117 Feb, [facility] [place] [facility] [address] [id number] [place] [address]- 8570 Feb, [facility] [place] [facility] [address] [id number] [place] [address]- 0782 Feb, [facility] [place] [facility] [address] [id number] [place] [address]- 0997 Feb, [facility] [place] [facility] [address] [id number] [place] [address]- 1236 Feb, [facility] [place] [facility] [address] [id number] [place] [address]- 9414 Feb, [facility] [place] [facility] [address] [id number] [place] [address]- 2328 Feb, [facility] [place] [facility] [address] [id number] [place] [address]- 2110 Feb, [facility] [place] [facility] [address] [id number] [place] [address]- 5025 Feb, [facility] [place] [facility] [address] [id number] [place] [address]- 9708 Feb, [facility] [place] [facility] [address] [id number] [place] [address]- 8522 Feb, [facility] [place] [facility] [address] [id number] [place] [address]- 0941 Feb, [facility] [place] [facility] [address] [id number] [place] [address]- 1677 Jan, [facility] [place] [facility] [address] [id number] [place] [address]- 9162 Jan, [facility] [place] [facility] [address] [id number] [place] [address]- 7175 Jan, [facility] [place] [facility] [address] [id number] [place] [address]- 2011 Jan, [facility] [place] [facility] [address] [id number] [place] [address]- 3681 Jan, [facility] [place] [facility] [address] [id number] [place] [address]- 1280 Jan, [facility] [place] [facility] [address] [id number] [place] [address]- 4103 Dec, [facility] [place] [facility] [address] [id number] [place] [address]- 6381 Dec, [facility] [place] [facility] [address] [id number] [place] [address]- 8714 Dec, [facility] [place] [facility] [address] [id number] [place] [address]- 3128 Dec, [facility] [place] [facility] [address] [id number] [place] [address]- 1093 Dec, [facility] [place] [facility] [address] [id number] [place] [address]- 4611 Dec, [facility] [place] [facility] [address] [id number] [place] [address]- 9786 Dec, [facility] [place] [facility] [address] [id number] [place] [address]- 3168 Dec, [facility] [place] [facility] [address] [id number] [place] [address]- 7766 November, [facility] [place] [facility] [address] [id number] [place] [address]- 8267 November, [facility] [place] [facility] [address] [id number] [place] [address]- 5149 November, [facility] [place] [facility] [address] [id number] [place] [address]- 0491 November, [facility] [place] [facility] [address] [id number] [place] [address]- 4416 November, [facility] [place] [facility] [address] [id number] [place] [address]- 9259 November, [facility] [place] [facility] [address] [id number] [place] [address]- 1186 Oct, [facility] [place] [facility] [address] [id number] [place] [address]- 6143 Oct, [facility] [place] [facility] [address] [id number] [place] [address]- 7353 Oct, [facility] [place] [facility] [address] [id number] [place] [address]- 0088 Oct, [facility] [place] [facility] [address] [id number] [place] [address]- 7168 Sep, [facility] [place] [facility] [address] [id number] [place] [address]- 7749 Sep, [facility] [place] [facility] [address] [id number] [place] [address]- 0604 Sep, [facility] [place] [facility] [address] [id number] [place] [address]- 5420 Sep, [facility] [place] [facility] [address] [id number] [place] [address]- 5761 Sep, [facility] [place] [facility] [address] [id number] [place] [address]- 6439 Sep, [facility] [place] [facility] [address] [id number] [place] [address]- 7518 Aug, [facility] [place] [facility] [address] [id number] [place] [address]- 9595 Aug, [facility] [place] [facility] [address] [id number] [place] [address]- 7053 Aug, [facility] [address] [id number] [place] [address]- 3676 Aug, [facility] [place] [facility] [address] [id number] [place] [address]- 3186 Aug, [facility] [address] [id number] [place] [address]- 7106 Aug, [facility] [place] [facility] [address] [id number] [place] [address]- 6571 Jul, [facility] [place] [facility] [address] [id number] [place] [address]- 5385 Jul, [facility] [address] [id number] [place] [address]- 4946 Jul, [facility] [address] [id number] [place] [address]- 1249 Jul, [facility] [address] [id number] [place] [address]- 4789 Jul, [facility] [place] [facility] [address] [id number] [place] [address]- 5385 Jul, [facility] [address] [id number] [place] [address]- 4125 Jul, [facility] [place] [facility] [address] [id number] [place] [address]- 6263 Jul, [facility] [place] [facility] [address] [id number] [place] [address]- 3643 Jul, [facility] [place] [facility] [address] [id number] [place] [address]- 6444 Jul, [facility] [place] [facility] [address] [id number] [place] [address]- 6451 Jul, [facility] [place] [facility] [address] [id number] [place] [address]- 2231 Jul, [facility] [place] [facility] [address] [id number] [place] 6836 Jul, [facility] [address] [id number] [place] [address]27 Jul, [facility] [address] [id number] [place] [address]- 7460 Jul, [facility] [address] [id number] [place] [address]- 3500 Jun, [facility] [address] [id number] [place] [address]- 2751 Jun, [facility] [address] [id number] [place] [address]- 7078 Jun, [facility] [address] [id number] [place] [address]- 6887 Jun, [facility] [place] [facility] [address] [id number] [place] [address]- 8809 May, [facility] [place] [facility] [address] [id number] [place] [address]- 9730 May, [facility] [address] [id number] [id number] May, [facility] [place] [facility] [address] [id number] [place] [address]- 9422 May, [facility] [address] [id number] [place] [address]- 3788 May, [facility] [address] [id number] [place] [address]- 4118 May, [facility] [place] [facility] [address] [id number] [place] [address]- 2080 May, [facility] [address] [id number] [place] [address]- 9546 16 May, 2013 [facility] [address] [id number] [place] [address]- 9760 May, [facility] [address] [facility] [id number] [place] [id number] May, [facility] [address] [facility] [id number] [place] [address]- 2546 May, [facility] [address] [facility] [id number] [place] [id number] May, [facility] [address] [facility] [id number] [place] [address]- 2546 May, [facility] [address] [facility] [id number] [id number] May, [facility] [address] [facility] [id number] [place] [address]- 2546 May, IMMUNIZATIONS No Known Immunizations SOCIAL HISTORY Never Assessed REASON FOR VISIT NH follow up - Needs a re-cert on her oxygen. Thinks she has a UTI. Left ear swelling/pain she came to walk-in Thursday for it.- Rosalina KOLB PLAN OF CARE Activity Details Follow Up 4 Weeks Reason:oxygen therapy VITAL SIGNS Height 63 in 2017-02-16 Weight 183.9 lbs 2017-02-16 Temperature 97.6 degrees Fahrenheit 2017-02-16 Heart Rate 148 bpm 2017-02-16 Respiratory Rate 24 2017-02-16 Oximetry 93 % 2017-02-16 BMI 32.57 kg/m2 2017-02-16 Blood pressure systolic 92 mmHg 2017-02-16 Blood pressure diastolic 64 mmHg 2017-02-16 MEDICATIONS Medication Instructions Dosage Frequency Start Date End Date Duration Status Enbrel 50 MG/ML Subcutaneous once weekly on Thursday 1 ml Active Pravastatin Sodium 10 mg Orally Once a day 1 tablet 24h 30 days Active Albuterol Sulfate (2.5 MG/3ML) 0.083% Inhalation every 6 hrs 3 ml 6h 30 days Active Nexium 40 MG Orally Once a day 1 capsule 24h 30 Active Vitamin C 500 mg Orally Once a day 2 tablets 24h Feb, Active Cetirizine HCl 10 MG Orally Once a day 1 tablet 24h Active Xanax 0.5 MG Orally Once a day 1 tablet at bedtime 24h Jan, 28 days Active Aspirin EC 81 MG Orally Once a day 1 tablet 24h 30 Active Oxygen 2 L/NC by inhalation route all day and nite ... 02 Feb, 2016 Active Spiriva Respimat 2.5 MCG/ACT Inhalation Once a day 1 puff 24h Oct, 30 days Active Voltaren 1 % Transdermal 2 times a day 4 gm 12h 12 Oct, 2016 Feb, 30 days Active Ranitidine HCl 150 MG Orally 2 times a day 1 tablet 12h 30 days Active Multi Adult Gummies - Active Montelukast Sodium 10 mg Orally Once a day at HS 1 tablet in the evening Active Verapamil HCl ER 120 MG Orally Once a day 1 tablet in the morning with food 24h 90 Active Hydrocodone-Acetaminophen 5-325 MG Orally every 4 hrs 1-2 tablet as needed 4h Jan, Active Symbicort 160-4.5 MCG/ACT Inhalation Twice a day 2 puffs 12h Oct, 30 days Active Probiotic - Active Gabapentin 300 MG Orally 3 times a day 2 capsules 8h 30 days Active Ciprodex 0.3-0.1 % Otic Twice a day 4 drops into affected ear 12h Feb, 07 days Active Doxepin HCl 25 MG Orally Once a day 1 capsule at bedtime 24h 30 days Active Cholecalciferol 1000 UNIT Orally Once a day 1 capsule 24h Active Oxycodone-Acetaminophen 5-325 MG Orally 3 times a day 1 tablet 8h 18 Jan, 2017 21 days Active Zoloft 50 mg Orally Once a day 1 tablet 24h 13 Mar, 2016 30 days Active Ciprofloxacin HCl 500 MG Orally Twice a day 1 tablet 12h Feb, Feb, 07 days Active RESULTS Name Result Date Reference Range CULTURE, URINE 2017-02-16 Ambiguous Test Order Please note Request Problem Request Problem Specimen Identification Status Antimicrobial Susceptibility Result 1 Result 2 Urine Culture, Routine UA LONG DIP (IN HOUSE) 2017-02-16 Lot # [id number] Exp date 03/12/2018 Clarity Turbid Color brown Odor strong GLU negative DARCIE 1+ KET trace SG 1.025 BLO Trace-intact pH 5.5 Protein 1+ URO 1.0 NIT negative MANASA trace Lot # Exp date Xray : Chest (IN HOUSE) 2017-02-16 CBC 2017-02-16 WBC 13.8 3.4-10.8 RBC 4.46 3.77-5.28 Hemoglobin 13.5 11.1-15.9 Hematocrit 41.0 34.0-46.6 MCV 92 79-97 MCH 30.3 26.6-33.0 MCHC 32.9 31.5-35.7 RDW 14.8 12.3-15.4 Platelets 438 150-379 Neutrophils 50 Lymphs 35 Monocytes 13 Eos 2 Basos 0 Immature Cells Neutrophils (Absolute) 6.9 1.4-7.0 Lymphs (Absolute) 4.8 0.7-3.1 Monocytes(Absolute) 1.8 0.1-0.9 Eos (Absolute) 0.3 0.0-0.4 Baso (Absolute) 0.0 0.0-0.2 Immature Granulocytes 0 Immature Grans (Abs) 0.0 0.0-0.1 NRBC Hematology Comments: Note: CULTURE, URINE 2017-02-16 Urine Culture, Routine Final report Result 1 Escherichia coli Antimicrobial Susceptibility BNP 2017-02-16 B-Type Natriuretic Peptide 378.9 0.0-100.0 CMP 2017-02-16 Glucose, Serum 90 65-99 BUN 18 8-27 Creatinine, Serum 0.83 0.57-1.00 eGFR If NonAfricn Am 73 >59 eGFR If Africn Am 84 >59 BUN/Creatinine Ratio 22 12-28 Sodium, Serum 138 134-144 Potassium, Serum 4.7 3.5-5.2 Chloride, Serum 96 96-106 Carbon Dioxide, Total 23 18-29 Calcium, Serum 9.2 8.7-10.3 Protein, Total, Serum 7.5 6.0-8.5 Albumin, Serum 3.7 3.6-4.8 Globulin, Total 3.8 1.5-4.5 A/G Ratio 1.0 1.2-2.2 Bilirubin, Total 0.6 0.0-1.2 Alkaline Phosphatase, S 117 39-117 AST (SGOT) 19 0-40 ALT (SGPT) 18 0-32 PROCEDURES Procedure Date Ordered Result Body Site MEASURE BLOOD OXYGEN LEVEL Feb 16, 2017 [facility] Feb 16, 2017 CHEST X-RAY Feb 16, 2017 URINALYSIS, AUTO, W/O SCOPE Feb 16, 2017 [facility] VISIT ESTABLISHED PATIENT Feb 16, 2017 VENIPUNCT, ROUTINE* Feb 16, 2017 INSTRUCTIONS MEDICATIONS ADMINISTERED No Known Medications [...]
--- OUTSIDE RECORDS SUMMARY | 2018-03-18 20:29 | XMS REPORT ---
Author Author DAPHNE YUSUF Organization [facility] Address [address] [place] [address] Care Team Providers Care Unit Director Name Role Phone DAPHNE YUSUF Unavailable PROBLEMS Type Condition ICD9-CM Code DWN68-YK Code Onset Dates Condition Status SNOMED Code Problem Hx of Clostridium difficile infection Z86.19 Active 023222976 Problem History of arthroplasty of right knee Z96.651 Active 062463476 Problem Edema R60.9 Active 105434425 Problem Dysphagia, unspecified dysphagia R13.10 Active 99361424 Problem Chronic pain syndrome G89.4 Active 754666935 Problem 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 087609448 Problem Anxiety F41.9 Active 27980871 Problem Anemia, unspecified type D64.9 Active 667341464 Problem Depression, unspecified depression type F32.9 Active 69590823 Problem Insomnia, unspecified G47.00 Active 771912441 Problem Primary insomnia F51.01 Active 6881501 Problem History of cerebrovascular accident with current residual effects I69.90 Active 065027148 Problem Peripheral vascular disease, unspecified I73.9 Active 834601140 Problem Leg pain, left M79.605 Active 790602891 Problem Other chronic pain G89.29 Active 71738106 Problem Iron deficiency anemia, unspecified iron deficiency anemia type D50.9 Active 03647160 Problem Chronic obstructive pulmon disease w acute lower resp infct J44.0 Active 337833784 Problem Rheumatoid arthritis, involving unspecified site, unspecified rheumatoid factor presence M06.9 Active 88223745 Problem Rheumatoid arthritis M06.9 Active 90252905 Problem Atrial fibrillation I48.91 Active 79389223 Problem 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 177308892 Problem Osteoarthritis of foot M19.079 Active 384909163 Problem Hypertension I10 Active 81855879 Problem Tobacco abuse, 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 477473896 Problem Dysthymia F34.1 Active 31196431 Problem COPD (chronic obstructive pulmonary disease) J44.9 Active 78015989 ALLERGIES No Information ENCOUNTERS Encounter Location Date Diagnosis [facility] [id number] [place] [address] 68467- 1490 Sep, [facility] [id number] [place] [address] 18595- 8022 Sep, Chronic pain syndrome G89.4 [facility] [id number] [place] [address] 93925- 4123 Sep, [facility] [id number] [place] [address] 82088- 6009 Aug, Chronic pain syndrome G89.4 [facility] [id number] [place] [address] 54043- 9675 Aug, [facility] [id number] [place] [address] 39607- 6063 Aug, Insomnia, unspecified G47.00 [facility] [id number] [place] [address] 09994- 0897 Jul, [facility] [id number] [place] [address] 81690- 6322 Jul, [facility] [id number] [place] [address] 93092- 3937 Jul, Chronic pain syndrome G89.4 [facility] [id number] [place] [address] 37050- 1840 Jun, Chronic pain syndrome G89.4 [facility] [id number] [place] [address] 99911- 8893 Jun, Chronic pain syndrome G89.4 [facility] [id number] [place] [address] 66981- 9347 May, [facility] [id number] [place] [address] 21337- 5807 May, Shortness of breath R06.02 ; Peripheral vascular disease, unspecified I73.9 ; Pain in right knee M25.561 ; Other chronic pain G89.29 ; Chest wall pain R07.89 ; Chronic pain syndrome G89.4 ; Primary insomnia F51.01 and Ear pain, left H92.02 [place] [id number] [place] [address] 35919- 6799 May, Anxiety F41.9 [place] [address] 14972- 7362 Apr, Pneumonia due to infectious organism, unspecified laterality , unspecified part of lung J18.9 ; Hypoxia R09.02 ; Bradycardia R00.1 ; History of Clostridium difficile Z87.19 and Primary insomnia F51.01 [place] [facility] [id number] [place] [address] 45838- 9044 Apr, Anxiety F41.9 [place] [address] 99631- 9468 Apr, [facility] [facility] [id number] [place] [address] 52990- 5970 Mar, Anxiety F41.9 [facility] [id number] [place] [address] 99491- 5360 Feb, [place] [facility] [id number] [place] [address] 93829- 5164 Feb, [place] [facility] [id number] [place] [address] 97739- 6220 Feb, Abnormal finding on urinalysis R82.90 [place] [facility] [id number] [place] [address] 42987- 3955 Feb, [place] [address] 25843- 1992 Feb, Shortness of breath R06.02 ; Tachycardia R00.0 ; Cough R05 ; Ill feeling R68.89 and Abnormal finding on urinalysis R82.90 [place] [facility] [id number] [place] [address] 85952- 7530 Feb, Anxiety F41.9 [facility] [id number] [place] [address] 41958 -1989 Feb, Sore throat J02.9 and Acute diffuse otitis externa of left ear H60.312 [facility] [id number] [place] [address] 67045- 3037 Jan, [facility] [id number] [place] [address] 13319- 7343 Jan, [facility] [address] [id number] Jan, [facility] [id number] [place] [address] 25848- 4731 Jan, Depression, unspecified depression type F32.9 ; Chronic bronchitis, unspecified chronic bronchitis type J42 ; Chronic pain syndrome G89.4 and Anxiety F41.9 [facility] [id number] [place] [address] 62541- 9026 Jan, [facility] [id number] [place] [address] 40283- 2278 Jan, [facility] [id number] [place] [address] 03232- 9600 Jan, [facility] [id number] [place] [address] [id number] Jan, Chronic pain syndrome G89.4 [employer] [address] [place] [id number] Dec, History of right knee surgery Z98.890 [facility] [id number] [place] [address] 62143- 7585 Dec, [facility] [id number] [place] [address] 93724- 8055 Dec, Chronic pain syndrome G89.4 [facility] [id number] [place] [address] 40279- 5201 November, Anxiety F41.9 [facility] [address] [address] November, Acute cystitis without hematuria N30.00 [facility] [id number] [place] [address] 68558 -8909 November, Fever, unspecified fever cause R50.9 and Acute cystitis without hematuria N30.00 [place] [facility] [id number] [place] [address] 91188- 7607 November, Chronic pain syndrome G89.4 [facility] [facility] [id number] [place] [address] 94251- 4803 Oct, Anxiety F41.9 [facility] [facility] [id number] [place] [address] 87223- 0610 Oct, Chronic pain syndrome G89.4 [facility] [facility] [id number] [place] [address] 85147- 8802 Oct, Chronic pain syndrome G89.4 [place] [id number] [place] [address] 59063- 0513 Oct, [facility] [facility] [id number] [place] [address] 10621- 8272 Oct, Chronic pain syndrome G89.4 ; Pain in right knee M25.561 ; History of Clostridium difficile Z87.19 ; Iron deficiency anemia, unspecified iron deficiency anemia type D50.9 ; Peripheral vascular disease, unspecified I73.9 and Atrial fibrillation I48.91 [place] [address] [place] [address]- 4250 Oct, [facility] [facility] [id number] [place] [address] 89294- 2012 Oct, Chronic pain syndrome G89.4 [place] [id number] [place] [address] 85680- 1421 Sep, [place] [address] [address]- 7179 Sep, Depression, unspecified depression type F32.9 ; Chronic bronchitis, unspecified chronic bronchitis type J42 ; Chronic pain syndrome G89.4 and Anxiety F41.9 [employer] [address] [place] [id number] Sep, History of Clostridium difficile infection Z86.19 and History of stroke Z86.73 [facility] [id number] [place] [address] [id number] Sep, Anxiety F41.9 [facility] [id number] [place] [address] 02009- 3997 Sep, Chronic pain syndrome G89.4 [facility] [id number] [place] [address] 38215- 7511 Sep, [facility] [id number] [place] [address] [id number] Sep, [facility] [id number] [place] [address] 46168- 5523 Aug, Anxiety F41.9 [facility] [id number] [place] [address] 66214- 0737 Aug, Anxiety F41.9 [facility] [address] [place] [address]- 7427 16 Aug, 2016 [facility] [id number] [place] [address] 97402- 7340 14 Aug, 2016 Acute knee pain, unspecified laterality M25.569 [facility] [address] [place] [address]- 6780 13 Aug, 2016 [facility] [address] [place] [address]- 7178 09 Aug, 2016 Chronic pain syndrome G89.4 [facility] [address] [address]- 1133 08 Aug, 2016 [facility] [id number] [place] [address] 48302- 7397 Aug, [facility] [id number] [place] [address] 96126- 6651 Jul, [facility] [id number] [place] [address] 45221- 4637 Jul, Anxiety F41.9 [facility] [id number] [place] [address] 07198- 8294 Jul, Clostridium difficile diarrhea A04.7 [employer] [address] [place] [id number] Jul, Clostridium difficile diarrhea A04.7 ; Chronic pain syndrome G89.4 ; Chronic obstructive pulmon disease w acute lower resp infct J44.0 and Pain in right knee M25.561 [facility] [id number] [place] [address] [id number] Jul, [facility] [id number] [place] [address] 05891 -0654 Jul, Anxiety F41.9 and Chronic pain syndrome G89.4 [facility] [id number] [place] [address] 39146- 1984 Jun, Anxiety F41.9 [facility] [id number] [place] [address] 99578- 5872 Jun, Rheumatoid arthritis 714.0 [facility] [id number] [place] [address] 41066- 9100 Jun, Chronic pain syndrome G89.4 [facility] [id number] [place] [address] 60293- 8431 Jun, [facility] [id number] [place] [address] 12112- 7745 Jun, [facility] [id number] [place] [address] 81155- 9865 Jun, History of pneumonia Z87.01 and History of Clostridium difficile Z87.19 [facility] [address], [place] [address]- 0882 Jun, [facility] [id number] [place] [address] 05905- 4968 May, [facility] [id number] [place] [address] 40069- 5958 May, Anxiety F41.9 [facility] [id number] [place] [address] 76960- 2127 May, Chronic pain syndrome G89.4 [facility] [id number] [place] [address] 20113- 3936 May, Chronic bronchitis, unspecified chronic bronchitis type J42 [facility] [id number] [place] [address] 22575- 2657 May, [facility] [id number] [place] [address] 34209- 2985 May, C. difficile diarrhea A04.7 ; Peripheral edema R60.9 ; COPD (chronic obstructive pulmonary disease) J44.9 ; Rheumatoid arthritis, involving unspecified site, unspecified rheumatoid factor presence M06.9 ; Pain in right knee M25.561 ; Pain in left knee M25.562 and Other chronic pain G89.29 [facility] [address], [place] [address]- 8233 May, [facility] [id number] [place] [address] 96472- 4331 May, [facility] [id number] [place] [address] 90121- 9715 May, Anxiety F41.9 [facility] [id number] [place] [address] 91645- 2697 Apr, [facility] [id number] [place] [address] 94415- 5350 Apr, Chronic pain syndrome G89.4 [facility] [id number] [address]- 1999 Apr, Leg pain, left M79.605 [place] [id number] [place] [address] 78960- 4443 Apr, [facility] [id number] [place] [address] 43574- 1717 Apr, [place] [id number] [place] [address] 58335- 7435 Apr, [place] [id number] [place] [address] 96051- 6485 28 Mar, 2016 Chronic pain syndrome G89.4 [facility] [facility] [id number] [place] [address] 10136- 9490 22 Mar, 2016 Acute frontal sinusitis, recurrence not specified J01.10 [facility] [facility] [id number] [place] [address] 23431- 0113 20 Mar, 2016 Iron deficiency anemia, unspecified iron deficiency anemia type D50.9 ; Rheumatoid arthritis with positive rheumatoid factor, involving unspecified site M05.9 and Depression, unspecified depression type F32.9 [facility] [facility] [id number] [place] [address] 46418- 2212 13 Mar, 2016 Iron deficiency anemia, unspecified iron deficiency anemia type D50.9 ; Depression, unspecified depression type F32.9 and Rheumatoid arthritis with positive rheumatoid factor, involving unspecified site M05.9 [place] [id number] [place] [address] 39445- 6606 Mar, [place] [id number] [place] [address] 18301- 7653 Mar, [facility] [id number] [place] [address] 84245- 3684 Feb, Chronic pain syndrome G89.4 [place] [id number] [place] [address] 07816- 9442 Feb, 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 ; Status post CVA Z86.73 ; Hemiplegia G81.90 and Anemia, unspecified type D64.9 [facility] [id number] [place] [address] 20779- 7800 Feb, [facility] [id number] [place] [address] 37073- 1721 Feb, Anemia, unspecified type D64.9 [place] [address] 54134- 6924 Feb, [facility] [facility] [id number] [place] [address] 83721- 1640 Feb, Iron deficiency anemia, unspecified iron deficiency anemia type D50.9 [facility] [facility] [id number] [place] [address] 82246- 9309 Feb, [place] [address] 70893- 8825 Feb, Chronic bronchitis, unspecified chronic bronchitis type J42 [place] [facility] [id number] [place] [address] 65923- 2915 Feb, Iron deficiency anemia, unspecified iron deficiency anemia type D50.9 [facility] [facility] [id number] [place] [address] 87152- 4320 Feb, Chronic pain syndrome G89.4 [facility] [facility] [id number] [place] [address] 32614- 7469 Feb, Anemia, unspecified type D64.9 and Hypoxia R09.02 [place] [id number] [place] [address] 50536- 3594 Feb, Anemia, unspecified type D64.9 [place] [id number] [place] [address] 39530- 9674 Jan, [facility] [facility] [id number] [place] [address] 34588- 0945 Jan, Anemia, unspecified type D64.9 [place] [address], [place] [address]- 5606 Jan, [facility] [id number] [place] [address] 62181- 1600 Jan, Anemia, unspecified type D64.9 [facility] [address], [place] [address]- 6686 Jan, Anemia, unspecified type D64.9 [facility] [id number] [place] [address] 38339- 2946 Jan, [facility] [id number] [place] [address] 67752- 9357 Jan, Anemia, unspecified type D64.9 [facility] [id number] [place] [address] 95290- 0751 Jan, [facility] [id number] [place] [address] 26941- 3919 Jan, [facility] [id number] [place] [address] 98756- 4584 Jan, Chronic pain syndrome G89.4 [facility] [id number] [place] [address] 25038- 2946 Jan, Anemia, unspecified type D64.9 [facility] [address] [place] [address]- 5799 Jan, Dysthymia F34.1 ; Cervicalgia M54.2 ; Fatigue, unspecified type R53.83 and Depression, unspecified depression type F32.9 [facility] [address] [place] [address]- 2876 Dec, [facility] [id number] [place] [address] 75749- 8847 Dec, Anxiety F41.9 [facility] [address], [place] [address]- 4799 Dec, Chronic pain syndrome G89.4 [facility] [id number] [place] [address] 60195- 1447 November, [facility] [address] 61345- 0698 November, Edema R60.9 and Dizziness R42 [place] [address] 07199- 7161 November, [place] [address] 88187- 5344 November, [place] [id number] [place] [address] 43839- 3379 November, COPD (chronic obstructive pulmonary disease) J44.9 ; Increased tracheal secretions J39.8 and Edema R60.9 [facility] [place] [address] 28068 -5194 Oct, [facility] [address] 22133 -7388 Oct, Shortness of breath R06.02 and Edema R60.9 [place] [id number] [place] [address] 95239- 8381 Oct, Chronic bronchitis, unspecified chronic bronchitis type J42 ; Peripheral vascular disease, unspecified I73.9 ; Rheumatoid arthritis M06.9 and Atrial fibrillation I48.91 [place] [id number] [place] [address] 86757- 2406 Oct, [facility] [facility] [id number] [place] [address] 74415- 4237 Oct, [place] [address] [address]- [address]68 Oct, [facility] [id number] [place] [address] 26714- 2838 Oct, [facility] [id number] [place] [address] [id number] -[phone] Oct, COPD exacerbation J44.1 [facility] [id number] [place] [address] Sep, [facility] [id number] [place] [address] 91695- 7926 Sep, [facility] [id number] [place] [address] 27688- 9929 Sep, [facility] [id number] [place] [address] 05332- 7585 Aug, [facility] [id number] [place] [address] 20668- 8572 Aug, 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 and PVD (peripheral vascular disease ) I73.9 [facility] [id number] [place] [address] 89778- 4435 Aug, Bronchitis J40 ; COPD (chronic obstructive pulmonary disease ) J44.9 and Dysthymia F34.1 [facility] [id number] [address] Aug, [facility] [id number] [place] [address] 51178- 8806 Jul, [facility] [id number] [address] Jul, [facility] [id number] [place] [address] 94244- 5327 Jul, [facility] [id number] [place] [address] 8196 Jun, [facility] [id number] [place] [address], [place] [address]- 6961 Jun, [facility] [id number] [place] [address]- 2036 Jun, Peripheral vascular disease I73.9 [facility] [id number] [place] [address] 33038- 7586 Jun, [facility] [id number] [place] [address] 64166- 5845 Jun, [facility] [id number] [place] [address] 16960- 6976 Jun, Leg pain, left M79.605 ; Dysphagia, unspecified dysphagia R13.10 ; Insomnia, unspecified type G47.00 ; PVD (peripheral vascular disease) I73.9 and 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 [facility] [id number] [place] [address] 538806- 9910 May, [facility] [id number] [place] [address] 842113- 7736 May, [facility] [id number] [place] [address] 03276- 6526 May, [facility] [id number] [place] [address] 19273- 8273 May, [facility] [id number] [place] [address] 91094- 1396 May, [facility] [id number] [place] [address] 071353- 8294 Apr, [facility] [id number] [place] [address] 82098- 1119 Apr, [facility] [id number] [place] [address] 12509- 9446 Mar, [facility] [id number] [place] [address] 39045- 3636 Mar, [facility] [id number] [place] [address] 54921- 3406 Feb, [facility] [id number] [place] [address] 49993- 4802 Feb, Nicotine abuse 305.1 ; Arthralgia 719.40 and 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 [facility] [address] [facility] [id number], [place] [address]- 8217 Feb, [facility] [id number], [place] [address]- 5018 Jan, [facility] [id number], [place] [address]- 0300 Jan, [facility] [address], [place] [address]- 0298 Jan, [facility] [address] [id number], [place] [address]- 5865 Jan, [facility] [address], [place] [address]- 5010 Jan, 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 ; Rheumatoid arthritis 714.0 ; Hypertension 401.9 ; GERD (gastroesophageal reflux disease) 530.81 ; Nicotine addiction 305.1 and Leukocytosis 288.60 [facility] [address], [place] [address]- 2667 Jan, [facility] [address], [place] [address]- 2182 Jan, [facility] [address], [place] [address]- 2184 Jan, [facility] [address], [place] [address]- 2850 Jan, [facility] [address] [id number], [place] [address]- 6276 Jan, [facility] [address] [id number], [place] [address]- 2175 Dec, [facility] [address] [id number], [place] [address]- 2935 Dec, [facility] [address] [id number] 5409 Dec, [facility] [id number] [place] [address] 56508- 1768 Dec, [facility] [id number] [place] [address] 05561- 8861 November, [facility] [id number] [place] [address] 35018- 9122 November, [facility] [address] 13577- 4910 November, Shortness of breath 786.05 [facility] [id number] [place] [address] 93876- 4038 November, Rheumatoid arthritis 714.0 [facility] [address] 83285- 4840 November, 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 [facility] [address] 16446- 0091 November, Neuropathy 355.9 ; Insomnia 780.52 ; Dysthymia 300.4 ; Shortness of breath 786.05 ; Rheumatoid arthritis 714.0 and Nausea 787.02 [facility] [id number] [place] [address] 76111- 6672 November, [facility] [id number] [place] [address] 62003- 1296 November, [facility] [id number] [place] [address] 01853- 5410 Oct, [facility] [id number] [place] [address] 29469- 4577 Oct, [facility] [id number] [place] [address] 35094- 6332 Oct, [facility] [id number] [place] [address] 40492- 2742 Oct, [facility] [id number] [place] [address] 67499- 9856 Sep, [facility] [place] [facility] [address] [id number] [place] [address]- 9592 Sep, [facility] [place] [facility] [address] [id number] [place] [address]- 5565 Sep, [facility] [place] [facility] [address] [id number] [place] [address]- 3155 Sep, [facility] [place] [facility] [address] [id number] [place] [address]- 3737 Sep, [facility] [place] [facility] [address] [id number] [place] [address]- 2309 Sep, [facility] [place] [facility] [address] [id number] [place] [address]- 3821 Sep, [facility] [place] [facility] [address] [facility] [id number] [place] [address]- 7311 Sep, [facility] [place] [facility] [address] [id number] [place] [address]- 2290 Aug, [facility] [place] [facility] [address] [id number] [place] [address]- 3996 Aug, [facility] [place] [facility] [address] [facility] [id number] [place] [address]- 2571 Aug, [facility] [place] [facility] [address] [facility] [id number] [place] [address]- 9856 Aug, [facility] [place] [facility] [address] [id number], [place] [address]- 2088 Aug, [facility] [place] [facility] [address] [id number] [place] [address]- 8231 Aug, [facility] [place] [facility] [address] [id number] [place] [address]- 5953 Jul, [facility] [place] [facility] [address] [id number] [place] [address]- 2030 Jul, [facility] [place] [facility] [address] [id number], [place] [address]- 1677 Jul, [facility] [place] [facility] [address] [id number] [place] [address]- 6114 Jul, [facility] [place] [facility] [address] [id number] [place] [address]- 1512 Jul, [facility] [place] [facility] [address] [facility] [id number] [place] [address]- 7992 Jul, [facility] [place] [facility] [address] [id number] [place] [address]- 8330 Jul, [facility] [place] [facility] [address] [id number] [place] [address]- 0195 Jul, [facility] [place] [facility] [address] [id number] [place] [address]- 3407 Jul, [facility] [place] [facility] [address] [facility] [id number] [place] [address]- 1441 Jul, [facility] [place] [facility] [address] [id number] [place] [address]- 6565 Jun, [facility] [place] [facility] [address] [id number] [place] [address]- 9546 Jun, [facility] [place] [facility] [address] [facility] [id number] [place] [address]- 6725 Jun, [facility] [place] [facility] [address] [id number] [place] [address]- 7152 Jun, [facility] [place] [facility] [address] [id number] [place] [address]- 3534 Jun, [facility] [place] [facility] [address] [id number] [place] [address]- 1140 Jun, [facility] [place] [facility] [address] [id number] [place] [address]- 9443 Jun, [facility] [place] [facility] [address] [facility] [id number] [place] [address]- 2288 Jun, [facility] [place] [facility] [address] [id number] [place] [address]- 5588 Jun, [facility] [place] [facility] [address] [id number] [place] [address]- 8208 Jun, [facility] [place] [facility] [address] [id number] [place] 6234 Jun, [facility] [place] [facility] [address] [id number] [place] [address]- 0087 Jun, [facility] [place] [facility] [address] [id number] [place] 0744 Jun, [facility] [place] [facility] [address] [id number] [place] [address]- 6720 Jun, [facility] [place] [facility] [address] [id number] [place] [address]- 4905 Jun, [facility] [place] [facility] [address] [id number] [place] [address]- 7012 Jun, [facility] [place] [facility] [address] [id number] [place] [address]- 5442 May, [facility] [place] [facility] [address] [id number] [place] [address]- 2146 May, [facility] [place] [facility] [address] [id number] [place] [address]- 7472 May, [facility] [place] [facility] [address] [id number] [place] [address]- 1259 May, [facility] [place] [facility] [address] [id number] [place] [address]- 5249 May, [facility] [place] [facility] [address] [id number] [place] [address]- 5291 May, [facility] [place] [facility] [address] [id number] [place] 4962 May, [facility] [place] [facility] [address] [id number] [place] [address]- 1734 May, [facility] [place] [facility] [address] [id number] [place] [address]- 4416 May, [facility] [place] [facility] [address] [id number] [place] [address]- 4124 Apr, [facility] [place] [facility] [address] [id number] [place] [address]- 2935 Apr, [facility] [place] [facility] [address] [id number] [place] [address]- 8858 Apr, [facility] [place] [facility] [address] [id number] [place] [address]- 4679 Apr, [facility] [place] [facility] [address] [id number] [place] [address]- 3137 Apr, [facility] [place] [facility] [address] [id number] [place] [address]- 0863 Apr, [facility] [place] [facility] [address] [id number], [place] [address]- 5835 Apr, [facility] [place] [facility] [address] [id number] [place] [address]- 2113 Apr, [facility] [place] [facility] [address] [id number], [place] [address]- 1189 Apr, [facility] [place] [facility] [address] [id number], [place] [address]- 6769 Apr, [facility] [place] [facility] [address] [id number], [place] [address]- 8837 Apr, [facility] [place] [facility] [address] [id number] [place] [address]- 0802 Apr, [facility] [place] [facility] [address] [id number], [place] [address]- 3916 Mar, [facility] [place] [facility] [address] [id number], [place] [address]- 0695 Mar, [facility] [place] [facility] [address] [id number] [place] [address]- 5014 Mar, 2013 [facility] [place] [facility] [address] [id number] [place] [address]- 4706 Mar, 2013 [facility] [place] [facility] [address] [id number] [place] [address]- 0686 Mar, 2013 [facility] [place] [facility] [address] [id number] [place] [address]- 6436 Mar, 2013 [facility] [place] [facility] [address] [id number] [place] [address] 2546 Mar, 2013 [facility] [place] [facility] [address] [id number] [place] [address]- 4999 Mar, 2013 [facility] [place] [facility] [address] [id number] [place] [address]- 4192 Mar, 2013 [facility] [place] [facility] [address] [id number] [place] [address]- 3671 Mar, 2013 [facility] [place] [facility] [address] [id number] [place] [address]- 1683 Feb, [facility] [place] [facility] [address] [id number] [place] [address]- 4768 Feb, [facility] [place] [facility] [address] [id number] [place] [address]- 6779 Feb, [facility] [place] [facility] [address] [id number] [place] [address]- 2695 Feb, [facility] [place] [facility] [address] [id number] [place] [address]- 2549 Feb, [facility] [place] [facility] [address] [id number] [place] [address]- 6180 Feb, [facility] [place] [facility] [address] [id number] [place] [address]- 6504 Feb, [facility] [place] [facility] [address] [id number] [place] [address]- 8009 Feb, [facility] [place] [facility] [address] [id number] [place] [address]- 0932 Feb, [facility] [place] [facility] [address] [id number] [place] [address]- 6591 Feb, [facility] [place] [facility] [address] [id number] [place] [address]- 8323 Feb, [facility] [place] [facility] [address] [id number] [place] [address]- 3936 Feb, [facility] [place] [facility] [address] [id number] [place] [address]- 5223 Feb, [facility] [place] [facility] [address] [id number] [place] [address]- 1066 Feb, [facility] [place] [facility] [address] [id number] [place] [address]- 1659 Feb, [facility] [place] [facility] [address] [id number] [place] [address]- 0611 Feb, [facility] [place] [facility] [address] [id number] [place] [address]- 1108 Jan, [facility] [place] [facility] [address] [id number] [place] [address]- 5765 Jan, [facility] [place] [facility] [address] [id number] [place] [address]- 7794 Jan, [facility] [place] [facility] [address] [id number] [place] [address]- 0957 Jan, [facility] [place] [facility] [address] [id number] [place] [address]- 2753 Jan, [facility] [place] [facility] [address] [id number] [place] [address]- 0598 Jan, [facility] [place] [facility] [address] [id number] [place] [address]- 6578 Dec, [facility] [place] [facility] [address] [id number] [place] [address]- 5875 Dec, [facility] [place] [facility] [address] [id number] [place] [address]- 6365 Dec, [facility] [place] [facility] [address] [id number] [place] [address]- 1116 Dec, [facility] [place] [facility] [address] [id number] [place] [address]- 6905 Dec, [facility] [place] [facility] [address] [id number] [place] [address]- 9988 Dec, [facility] [place] [facility] [address] [id number] [place] [address]- 0702 Dec, [facility] [place] [facility] [address] [id number] [place] [address]- 8444 Dec, [facility] [place] [facility] [address] [id number] [place] [address]- 1177 November, [facility] [place] [facility] [address] [id number] [place] [address]- 0563 November, [facility] [place] [facility] [address] [id number] [place] [address]- 5860 November, [facility] [place] [facility] [address] [id number] [place] [address]- 0631 November, [facility] [place] [facility] [address] [id number] [place] [address]- 7445 November, [facility] [place] [facility] [address] [id number] [place] [address]- 9974 November, [facility] [place] [facility] [address] [id number] [place] [address]- 2103 Oct, [facility] [place] [facility] [address] [id number] [place] [address]- 8926 Oct, [facility] [place] [facility] [address] [id number] [place] [address]- 7406 Oct, [facility] [place] [facility] [address] [id number] [place] [address]- 9424 Oct, [facility] [place] [facility] [address] [id number] [place] [address]- 8828 Sep, [facility] [place] [facility] [address] [id number] [place] [address]- 7836 Sep, [facility] [place] [facility] [address] [id number] [place] [address]- 0917 Sep, [facility] [place] [facility] [address] [id number] [place] [address]- 8708 Sep, [facility] [place] [facility] [address] [id number] [place] [address]- 2973 Sep, [facility] [place] [facility] [address] [facility] [id number] [place] 4621 Sep, [facility] [place] [facility] [address] [id number] [place] [address]- 0414 Aug, [facility] [place] [facility] [address] [id number] [place] [address]- 9869 Aug, [facility] [place] [facility] [address] [facility] [id number] [place] [address]- 8499 Aug, [facility] [place] [facility] [address] [facility] [id number] [place] [address]- 6174 Aug, [facility] [place] [facility] [address] [id number] [place] [address]- 6730 Aug, [facility] [place] [facility] [address] [id number] [place] [address]- 8408 Aug, [facility] [place] [facility] [address] [id number] [place] [address]- 3461 Jul, [facility] [place] [facility] [address] [id number] [place] 5234 Jul, [facility] [place] [facility] [address] [id number] [place] [address]- 1356 Jul, [facility] [address] [id number] [place] [address]- 5615 Jul, [facility] [place] [facility] [address] [id number] [place] [address]- 4461 Jul, [facility] [place] [facility] [address] [id number] [place] [address]- 1853 Jul, [facility] [place] [facility] [address] [id number] [place] [address]- 5204 Jul, [facility] [place] [facility] [address] [id number] [place] [address]- 8531 Jul, [facility] [place] [facility] [address] [id number] [place] [address]- 9680 Jul, [facility] [place] [facility] [address] [id number] [place] [address]- 8433 Jul, [facility] [place] [facility] [address] [id number] [place] [address]- 4453 Jul, [facility] [place] [facility] [address] [id number] [place] [address]- 7355 Jul, [facility] [place] [facility] [address] [id number] [place] [address]- 2640 Jul, [facility] [place] [facility] [address] [id number], [place] [address]- 2990 Jul, [facility] [place] [facility] [address] [id number], [place] [address]- 5004 Jul, [facility] [place] [facility] [address] [id number] [place] [address]- 9348 Jun, [facility] [place] [facility] [address] [id number] [place] [address]- 9968 Jun, [facility] [place] [facility] [address] [id number] [place] [address]- 3453 Jun, [facility] [place] [facility] [id number] 4921 Jun, [facility] [address] [facility] [id number], [place] [address]- 0783 May, [facility] [id number], [place] [address] May, [facility] [id number] [id number] May, [facility] [id number], [place] [address] May, [facility] [id number], [place] [address] May, [facility] [id number], [place] [address] May, [facility] [id number], [place] [address] May, [facility] [id number], [place] [address] May, [facility] [id number], [place] [address] May, [facility] [id number] [id number] May, [facility] [id number], [place] [address] May, [facility] [id number] [id number] May, [facility] [id number], [place] [address] May, [facility] [id number] [id number] May, [facility] [address] [id number] [id number] May, IMMUNIZATIONS No Known Immunizations SOCIAL HISTORY Never Assessed REASON FOR VISIT NH admit PLAN OF CARE Activity Details Follow Up prn Reason: VITAL SIGNS MEDICATIONS Medication Instructions Dosage Frequency Start Date End Date Duration Status Symbicort 160-4.5 MCG/ACT Inhalation Twice a day 2 puffs 12h 20 Oct, 2015 Active Montelukast Sodium 10 mg Orally Once a day at HS 1 tablet in the evening Active Pravastatin Sodium 10 mg Orally Once a day 1 tablet 24h 30 days Active Cholecalciferol 1000 UNIT Orally Once a day 1 capsule 24h Active Aspirin EC 81 MG Orally Once a day 1 tablet 24h 30 Active Spiriva Respimat 2.5 MCG/ACT Inhalation Once a day 1 puff 24h Oct, 30 days Active Ranitidine HCl 150 MG Orally 2 times a day 1 tablet 12h 30 days Active Oxygen 2 L/NC by inhalation route all day and nite ... Feb, Active Xanax 0.5 MG Orally Once a day 1 tablet at bedtime 24h Jan, 28 days Active Nexium 40 MG Orally Once a day 1 capsule 24h 30 Active Probiotic - Active Gabapentin 300 MG Orally 3 times a day 2 capsules 8h 30 days Active Doxepin HCl 25 MG Orally Once a day 1 capsule at bedtime 24h 30 days Active Multi Adult Gummies - Active Hydrocodone-Acetaminophen 5-325 MG Orally every 4 hrs 1 tablet as needed 4h Dec, Active Zoloft 50 mg Orally Once a day 1 tablet 24h Mar, 30 days Active Albuterol Sulfate (2.5 MG/3ML) 0.083% Inhalation every 6 hrs 3 ml 6h 30 days Active Voltaren 1 % Transdermal 2 times a day 4 gm 12h 12 Oct, 2016 Feb, 30 days Active Cetirizine HCl 10 MG Orally Once a day 1 tablet 24h Active Vitamin C 500 mg Orally Once a day 2 tablets 24h Feb, Active Enbrel 50 MG/ML Subcutaneous once weekly on Thursday 1 ml Active RESULTS No Results PROCEDURES Procedure Date Ordered Result Body Site [facility] VISIT ESTABLISHED PATIENT January 01, 2017 INSTRUCTIONS MEDICATIONS ADMINISTERED No Known Medications [...] leukocytosis--[facility] 01/08/16 Hospitalization History pseudomemranous colitis, sepsis--[facility] 04/21/2016 Hospitalization History C Diff--[facility] 05/10/2016 Hospitalization History sepsis, pneumonia, diarrhea--[facility] 06/11/16 Hospitalization History recurrent cdiff, pneumonia-[facility] 07/22/16 Hospitalization History sepsis,pneumonia- [facility]
--- OUTSIDE RECORDS SUMMARY | 2018-03-18 20:30 | XMS REPORT ---
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 Name Role Phone DAPHNE YUSUF Unavailable PROBLEMS Type Condition ICD9-CM Code XKL82-WQ Code Onset Dates Condition Status SNOMED Code Problem Hx of Clostridium difficile infection Z86.19 Active 697395044 Problem History of arthroplasty of right knee Z96.651 Active 661758706 Problem Dysphagia, unspecified dysphagia R13.10 Active 05349361 Problem Chronic pain syndrome G89.4 Active 969638738 Problem 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 476824701 Problem Anxiety F41.9 Active 82828723 Problem Leg pain, left M79.605 Active 454606391 Problem Depression, unspecified depression type F32.9 Active 86541860 Problem Iron deficiency anemia, unspecified iron deficiency anemia type D50.9 Active 91420071 Problem Anemia, unspecified type D64.9 Active 157137386 Problem Seasonal allergic rhinitis due to pollen J30.1 Active 34340908 Problem Insomnia, unspecified G47.00 Active 677259767 Problem 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 970892626 Problem History of cerebrovascular accident with current residual effects I69.90 Active 915101782 Problem Peripheral vascular disease, unspecified I73.9 Active 700800086 Problem Rheumatoid arthritis, involving unspecified site, unspecified rheumatoid factor presence M06.9 Active 89455756 Problem Other chronic pain G89.29 Active 99836577 Problem Primary insomnia F51.01 Active 0894585 Problem Chronic obstructive pulmon disease w acute lower resp infct J44.0 Active 268010693 Problem Atrial fibrillation I48.91 Active 09379791 Problem Dysthymia F34.1 Active 09752214 Problem Osteoarthritis of foot M19.079 Active 660648688 Problem Rheumatoid arthritis M06.9 Active 97248546 Problem Tobacco abuse, 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 359421561 Problem Edema R60.9 Active 350354328 Problem COPD (chronic obstructive pulmonary disease) J44.9 Active 54188949 Problem Hypertension I10 Active 38316377 ALLERGIES No Information ENCOUNTERS Encounter Location Date Diagnosis [place] [address] [address] Oct, Chronic pain syndrome G89.4 [place] [address] 56081- 69[address] Oct, [place] [address] 87160- 1617 Oct, Chronic pain syndrome G89.4 [place] [address] [address]- 7230 Oct, [place] [address] 38898- 1676 Oct, [place] [address] 8[address]- 37[address] Sep, Left upper quadrant pain R10.12 ; Chronic pain syndrome G89.4 ; Left lower quadrant pain R10.32 ; Other chronic pain G89.29 ; Sacrococcygeal disorders, not elsewhere classified M53.3 and Seasonal allergic rhinitis due to pollen J30.1 [place] [address] [place] [id number] [place] [address] 49399- 2461 Sep, Chronic pain syndrome G89.4 [place] [address] [place] [id number] [place] [address] 90969- 7439 Sep, [place] [address] [place] [id number] [place] [address] 81560- 3748 Aug, Chronic pain syndrome G89.4 [place] [address] 54805- 8998 Aug, [place] [address] 87260- 0646 Aug, Insomnia, unspecified G47.00 [place] [address] [address] Jul, [facility] [id number] [place] [address] 95366- 4156 Jul, [facility] [address] [address] 8241 Jul, Chronic pain syndrome G89.4 [facility] [address] [place] [id number] [place] [address] 33690- 9404 Jun, Chronic pain syndrome G89.4 [place] [address] [place] [id number] [place] [address] 78418- 2582 Jun, Chronic pain syndrome G89.4 [place] [address] [place] [id number] [place] [address] 80800- 5060 May, [place] [address] [place] [id number] [place] [address] 92641- 3657 May, Shortness of breath R06.02 ; Peripheral vascular disease, unspecified I73.9 ; Pain in right knee M25.561 ; Other chronic pain G89.29 ; Chest wall pain R07.89 ; Chronic pain syndrome G89.4 ; Primary insomnia F51.01 and Ear pain, left H92.02 [place] [id number] [place] [address] 00383- 2035 May, Anxiety F41.9 [place] [address] [place] [id number] [place] [address] 09842- 1013 Apr, Pneumonia due to infectious organism, unspecified laterality , unspecified part of lung J18.9 ; Hypoxia R09.02 ; Bradycardia R00.1 ; History of Clostridium difficile Z87.19 and Primary insomnia F51.01 [place] [address] [address] 4283 Apr, Anxiety F41.9 [place] [id number] [place] [address] 67141- 2319 Apr, [place] [address] [place] [id number] [place] [address] 16244- 5424 Mar, Anxiety F41.9 [facility] [address] 58329- 7685 Feb, [facility] [address] [place] [id number] [place] [address] 87705- 5971 Feb, [facility] [address] 21988- 9220 Feb, Abnormal finding on urinalysis R82.90 [place] [address] [place] [id number] [place] [address] 04353- 4753 Feb, [place] [address] 65863- 1654 Feb, Shortness of breath R06.02 ; Tachycardia R00.0 ; Cough R05 ; Ill feeling R68.89 and Abnormal finding on urinalysis R82.90 [facility] [address] [place] [id number] [place] [address] 29844- 9660 Feb, Anxiety F41.9 [facility] [address] [place] [id number] [place] [address] 06111 -5784 Feb, Sore throat J02.9 and Acute diffuse otitis externa of left ear H60.312 [place] [address] [place] [id number] [place] [address] 90210- 3724 Jan, [facility] [address] [place] [id number] [place] [address] 47553- 5643 Jan, [facility] [address] [id number] Jan, [place] [address] [place] [id number] [place] [address] 74404- 3880 Jan, Depression, unspecified depression type F32.9 ; Chronic bronchitis, unspecified chronic bronchitis type J42 ; Chronic pain syndrome G89.4 and Anxiety F41.9 [facility] [address] [place] [address] 7039 14 Jan, 2017 [facility] [id number] [place] [address] 90184- 0568 Jan, [facility] [address] [place] [address] 60800- 2791 10 Jan, 2017 [facility] [address] [place] [id number] [place] [address] [id number] Jan, Chronic pain syndrome G89.4 [facility] [address] [place] [id number] Dec, History of right knee surgery Z98.890 [facility] [address] [place] [id number] [place] [address] 00713- 9953 Dec, [facility] [address] [place] [address] 93213- 3565 Dec, Chronic pain syndrome G89.4 [facility] [address] [place] [address] 78086- 5860 November, Anxiety F41.9 [facility] [address] [place] [address] 11069 -9172 November, Acute cystitis without hematuria N30.00 [facility] [address] [place] [address] 77048 -8716 November, Fever, unspecified fever cause R50.9 and Acute cystitis without hematuria N30.00 [facility] [address] [address]- 8017 November, Chronic pain syndrome G89.4 [facility] [id number] [place] [address] 28916- 7651 Oct, Anxiety F41.9 [facility] [id number] [place] [address] 71208- 1479 Oct, Chronic pain syndrome G89.4 [facility] [address] [place] [address] 53231- 7963 Oct, Chronic pain syndrome G89.4 [facility] [address] [address]- 6902 Oct, [place] [address] [place] [address] 97014- 0760 Oct, Chronic pain syndrome G89.4 ; Pain in right knee M25.561 ; History of Clostridium difficile Z87.19 ; Iron deficiency anemia, unspecified iron deficiency anemia type D50.9 ; Peripheral vascular disease, unspecified I73.9 and Atrial fibrillation I48.91 [place] [address] [place] [address] 52523- 6070 Oct, [place] [address] [place] [id number] [place] [address] 57921- 9325 Oct, Chronic pain syndrome G89.4 [place] [id number] [place] [address] 58940- 8432 Sep, [place] [id number] [place] [address] 48475- 1353 Sep, Depression, unspecified depression type F32.9 ; Chronic bronchitis, unspecified chronic bronchitis type J42 ; Chronic pain syndrome G89.4 and Anxiety F41.9 [facility] [address] [id number] Sep, History of Clostridium difficile infection Z86.19 and History of stroke Z86.73 [place] [address] [place] [id number] [place] [address] [id number] Sep, Anxiety F41.9 [place] [address] [place] [id number] [place] [address] 80963- 0175 Sep, Chronic pain syndrome G89.4 [place] [address] [place] [address] 32424- 6627 Sep, [place] [address] [place] [id number] [place] [address] [id number] Sep, [place] [id number] [place] [address] 55131- 6190 Aug, Anxiety F41.9 [facility] [id number] [place] [address] 82359- 8999 Aug, Anxiety F41.9 [facility] [address] [place] [address] 48949- 7569 16 Aug, 2016 [facility] [address] [place] [id number] [place] [address] 71194- 1423 14 Aug, 2016 Acute knee pain, unspecified laterality M25.569 [facility] [address] [place] [address] 36665- 3385 Aug, [facility] [address] [place] [id number] [place] [address] 32386- 4257 Aug, Chronic pain syndrome G89.4 [facility] [address] [place] [id number] [place] [address] 51141- 0142 Aug, [facility] [address] [place] [id number] [place] [address] 07167- 2562 Aug, [facility] [address] [place] [address] 98590- 4048 Jul, [facility] [address] [place] [address] 96776- 1863 Jul, Anxiety F41.9 [facility] [address] [place] [address] 56211- 0665 Jul, Clostridium difficile diarrhea A04.7 [facility] [address] [id number] Jul, Clostridium difficile diarrhea A04.7 ; Chronic pain syndrome G89.4 ; Chronic obstructive pulmon disease w acute lower resp infct J44.0 and Pain in right knee M25.561 [facility] [address] [place] [id number] [place] [address] [id number] Jul, [facility] [id number] [place] [address] 48329 -5441 Jul, Anxiety F41.9 and Chronic pain syndrome G89.4 [facility] [address] [facility] [id number] [address]- 2326 Jun, Anxiety F41.9 [facility] [address] [facility] [id number] [address]- 6432 Jun, Rheumatoid arthritis 714.0 [facility] [id number] [place] [address] 79395- 8786 Jun, Chronic pain syndrome G89.4 [facility] [address] [address]- 5303 Jun, [facility] [id number] [place] [address] 09576- 6155 Jun, [facility] [address] [place] [address] 21831- 7913 Jun, History of pneumonia Z87.01 and History of Clostridium difficile Z87.19 [facility] [address] [address]- 2966 Jun, [facility] [id number] [place] [address] 09903- 5526 May, [facility] [address] [address]- 7814 May, Anxiety F41.9 [facility] [address] [address]- 0032 May, Chronic pain syndrome G89.4 [facility] [id number], [place] [address]- 8995 15 May, 2016 Chronic bronchitis, unspecified chronic bronchitis type J42 [facility] [address] [address]- 4565 May, [facility] [address], [place] [address]- 5138 May, C. difficile diarrhea A04.7 ; Peripheral edema R60.9 ; COPD (chronic obstructive pulmonary disease) J44.9 ; Rheumatoid arthritis, involving unspecified site, unspecified rheumatoid factor presence M06.9 ; Pain in right knee M25.561 ; Pain in left knee M25.562 and Other chronic pain G89.29 [facility] [address] [place] [id number] [place] [address] 31080 2546 May, [facility] [address] 54956 2546 May, [facility] [address] [place] [id number] [place] [address] 93961 2546 May, Anxiety F41.9 [facility] [address] 11800- 4136 Apr, [facility] [address] [place] [id number] [place] [address] 63787- 6288 Apr, Chronic pain syndrome G89.4 [facility] [address] [place] [id number] [place] [address] 44306 2546 Apr, Leg pain, left M79.605 [facility] [address] [place] [id number] [place] [address] 78811- 0346 Apr, [facility] [address] [place] [id number] [place] [address] 75779 2546 Apr, [facility] [address] [place] [id number] [place] [address] 32444- 9658 Apr, [facility] [address] [place] [id number] [place] [address] 25140 2540 Mar, Chronic pain syndrome G89.4 [facility] [address] [place] [id number] [place] [address] 11671 2546 Mar, Acute frontal sinusitis, recurrence not specified J01.10 [facility] [address] [place] [id number] [place] [address] 08814- 2546 Mar, Iron deficiency anemia, unspecified iron deficiency anemia type D50.9 ; Rheumatoid arthritis with positive rheumatoid factor, involving unspecified site M05.9 and Depression, unspecified depression type F32.9 [place] [address] [place] [id number] [place] [address] 98214- 8023 Mar, Iron deficiency anemia, unspecified iron deficiency anemia type D50.9 ; Depression, unspecified depression type F32.9 and Rheumatoid arthritis with positive rheumatoid factor, involving unspecified site M05.9 [place] [address] [place] [id number] [place] [address] 92203- 3271 Mar, [place] [address] [place] [id number] [place] [address] 18941- 1252 Mar, [place] [address] [place] [id number] [place] [address] 62888- 0249 Feb, Chronic pain syndrome G89.4 [place] [address] [place] [id number] [place] [address] 72774- 0633 Feb, 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 ; Status post CVA Z86.73 ; Hemiplegia G81.90 and Anemia, unspecified type D64.9 [place] [address] [place] [id number] [place] [address] 93626- 0562 Feb, [place] [address] [place] [id number] [place] [address] 46308- 4157 Feb, Anemia, unspecified type D64.9 [place] [address] [place] [id number] [place] [address] 93495- 5608 Feb, [place] [address] [place] [id number] [place] [address] 98726- 3680 Feb, Iron deficiency anemia, unspecified iron deficiency anemia type D50.9 [place] [address] [place] [id number] [place] [address] 87946- 1829 Feb, [place] [address] [place] [id number] [place] [address] 55081- 2497 Feb, Chronic bronchitis, unspecified chronic bronchitis type J42 [place] [address] [address]- 8827 Feb, Iron deficiency anemia, unspecified iron deficiency anemia type D50.9 [facility] [address] [place] [address]- 0316 Feb, Chronic pain syndrome G89.4 [facility] [address] [address]- 0996 Feb, Anemia, unspecified type D64.9 and Hypoxia R09.02 [facility] [address] [address]- 3671 Feb, Anemia, unspecified type D64.9 [facility] [address] [address]- 2146 Jan, [facility] [address] [address]- 5599 Jan, Anemia, unspecified type D64.9 [facility] [address] [address]- 8676 Jan, [facility] [id number] [address]- 0080 Jan, Anemia, unspecified type D64.9 [facility] [id number] [address]- 9312 Jan, Anemia, unspecified type D64.9 [facility] [address] [address]- 5046 Jan, [facility] [address] [place] [id number] [address]- 2540 Jan, Anemia, unspecified type D64.9 [facility] [address] [address]- 2549 Jan, [facility] [address], [place] [address]- 2544 Jan, [facility] [address] [place] [id number] [place] [address] 47016- 2630 Jan, Chronic pain syndrome G89.4 [facility] [address] [place] [id number] [place] [address] 73805- 5114 Jan, Anemia, unspecified type D64.9 [facility] [address] [place] [id number] [place] [address] 59228- 2558 Jan, Dysthymia F34.1 ; Cervicalgia M54.2 ; Fatigue, unspecified type R53.83 and Depression, unspecified depression type F32.9 [facility] [address] [place] [id number] [place] [address] 72023- 7062 Dec, [place] [address] [place] [id number] [place] [address] 44803- 8837 Dec, Anxiety F41.9 [place] [address] [place] [id number] [place] [address] 28070- 0123 Dec, Chronic pain syndrome G89.4 [facility] [address] [id number] [place] [address] 18310- 5662 November, [facility] [address] [place] [id number] [place] [address] 02611- 7080 November, Edema R60.9 and Dizziness R42 [facility] [address] [id number] [place] [address] 92157- 7399 November, [facility] [address] [place] [id number] [place] [address] 51083- 8455 November, [facility] [address] [place] [place] [id number] [place] [address] 27291- 6820 November, COPD (chronic obstructive pulmonary disease) J44.9 ; Increased tracheal secretions J39.8 and Edema R60.9 [facility] [id number] [place] [address] 43953 -9102 Oct, [facility] [address] [place] [id number] [place] [address] 23296 -6117 28 Oct, 2015 Shortness of breath R06.02 and Edema R60.9 [facility] [address] [place] [id number] [place] [address] 01945- 3186 20 Oct, 2015 Chronic bronchitis, unspecified chronic bronchitis type J42 ; Peripheral vascular disease, unspecified I73.9 ; Rheumatoid arthritis M06.9 and Atrial fibrillation I48.91 [facility] [address] [place] [id number] [place] [address] 89974- 4552 Oct, [facility] [address] [id number] [place] [address] 42842- 4247 Oct, [facility] [id number] [place] [address] 86289- 8395 Oct, [facility] [id number] [place] [address] 51214- 9686 Oct, [facility] [id number] [place] [address] 34235 -4804 Oct, COPD exacerbation J44.1 [facility] [id number] [place] [address] 17988- 9229 Sep, [facility] [address] [id number] [place] [address] 90170- 3969 Sep, [facility] [address] [id number] [place] [address] 77637- 7671 Sep, [facility] [id number] [place] [address] 61741- 4899 Aug, [facility] [id number] [place] [address] 86970- 3812 Aug, 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 and PVD (peripheral vascular disease ) I73.9 [facility] [id number] [place] [address] 29802- 0667 16 Aug, 2015 Bronchitis J40 ; COPD (chronic obstructive pulmonary disease ) J44.9 and Dysthymia F34.1 [facility] [address] [address]- 0587 Aug, [facility] [address], [place] [address]- 5347 Jul, [facility] [address] [address]- 5693 Jul, [facility] [id number] [place] [address] 328465- 8878 Jul, [facility] [address] [address]- 4785 Jun, [facility] [id number] [place] [address] 188376- 4293 Jun, [facility] [id number] [place] [address] 56102- 1421 Jun, Peripheral vascular disease I73.9 [facility] [address] [id number] [place] [address] 49279- 0982 Jun, [facility] [address] [address]- 9903 Jun, [facility] [address] [address]- 7973 Jun, Leg pain, left M79.605 ; Dysphagia, unspecified dysphagia R13.10 ; Insomnia, unspecified type G47.00 ; PVD (peripheral vascular disease) I73.9 and 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 [facility] [id number] [address] May, [facility] [id number] [address] May, [facility] [id number] [address] May, [facility] [id number] [address] May, [facility] [id number] [address] May, [facility] [id number] [address] Apr, [facility] [id number] [address] Apr, [facility] [id number], [place] [address] Mar, [facility] [id number] [address] Mar, [facility] [id number], [place] [address] Feb, [facility] [id number] [address] Feb, Nicotine abuse 305.1 ; Arthralgia 719.40 and 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 [facility] [id number] [address] Feb, [facility] [id number] [address] Jan, [facility] [id number] [address] Jan, [facility] [facility] [address] [address] Jan, [facility] [id number] [address] Jan, [facility] [id number] [address] Jan, 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 ; Rheumatoid arthritis 714.0 ; Hypertension 401.9 ; GERD (gastroesophageal reflux disease) 530.81 ; Nicotine addiction 305.1 and Leukocytosis 288.60 [facility] [address], [place] [address] Jan, 2014 [facility] [address], [place] [address] Jan, 2014 [facility] [id number] [place] [address] 18195- 9897 Jan, 2014 [facility] [id number] [place] [address] 88921- 4918 Jan, 2014 [facility] [id number] [place] [address] 26909- 6711 Jan, 2014 [facility] [id number] [place] [address] 735694- 5077 Dec, [facility] [id number] [place] [address] 575780- 5916 Dec, [facility] [id number] [place] [address] 70997- 9622 Dec, [facility] [id number] [place] [address] 81422- 5627 Dec, [facility] [id number] [place] [address] 93744- 9865 November, [facility] [address] [address] 5694 November, [facility] [id number] [place] [address] 71200- 5199 November, Shortness of breath 786.05 [facility] [address] [address] 6236 November, Rheumatoid arthritis 714.0 [facility] [id number] [place] [address] 50538- 6418 November, 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 [facility] [address] [address]- 1399 November, Neuropathy 355.9 ; Insomnia 780.52 ; Dysthymia 300.4 ; Shortness of breath 786.05 ; Rheumatoid arthritis 714.0 and Nausea 787.02 [facility] [address] [address]- 4468 November, [facility] [id number] [place] [address]- 0682 November, [facility] [address] [address]59 Oct, [facility] [id number] [address]- 6620 Oct, [facility] [id number] [place] [address], [place] [address]- 8975 Oct, [facility] [id number] [place] [address]- 1175 Oct, [facility] [id number] [address]- 0674 Sep, [facility] [address] [address]- 0689 Sep, [facility] [address], [place] [address]- 7848 Sep, [facility] [address], [place] [address]- 5380 Sep, [facility] [address], [place] [address]- 0955 Sep, [facility] [id number] [address]- 7135 Sep, [facility] [id number], [place] [address]- 0260 Sep, [facility] [address] 2682 Sep, [facility] [id number] [address]11 Aug, [facility] [place] [facility] [address] [id number] [place] [address]- 5168 Aug, [facility] [place] [facility] [address] [id number] [place] [address]- 6813 Aug, [facility] [place] [facility] [address] [id number] [place] [address]- 2552 Aug, [facility] [place] [facility] [address] [id number] [place] [address]- 2641 Aug, [facility] [place] [facility] [address] [id number] [place] [address]- 5746 Aug, [facility] [place] [facility] [address] [id number] [place] [address]- 4365 Jul, [facility] [place] [facility] [address] [id number] [place] [address]- 0785 Jul, [facility] [place] [facility] [address] [id number] [place] [address]- 1757 Jul, [facility] [place] [facility] [address] [id number] [place] [address]- 6429 Jul, [facility] [place] [facility] [address] [id number] [place] [address]- 2771 Jul, [facility] [place] [facility] [address] [id number] [place] [address]- 9581 Jul, [facility] [place] [facility] [address] [id number] [address]- 1237 Jul, [facility] [place] [facility] [address] [id number] [place] [address]- 3930 Jul, [facility] [place] [facility] [address] [id number] [place] [address]- 8925 Jul, [facility] [place] [facility] [address] [id number] [place] [address]- 0633 Jul, [facility] [place] [facility] [address] [id number] [place] [address]- 8534 30 Jun, 2014 [facility] [place] [facility] [address] [id number] [place] [address]- 1926 30 Jun, 2014 [facility] [place] [facility] [address] [id number] [place] [address]- 4576 Jun, [facility] [place] [facility] [address] [id number] [place] [address]- 7196 Jun, [facility] [place] [facility] [address] [id number] [place] [address]- 1416 Jun, [facility] [place] [facility] [address] [id number] [place] [address]- 2301 Jun, [facility] [place] [facility] [address] [id number] [place] [address]- 4077 Jun, [facility] [place] [facility] [address] [id number] [place] [address]- 9340 Jun, [facility] [place] [facility] [address] [id number] [place] [address]- 7544 Jun, [facility] [place] [facility] [address] [id number] [place] [address]- 6100 Jun, [facility] [place] [facility] [address] [id number] [place] [address]- 8946 Jun, [facility] [place] [facility] [address] [id number] [place] [address]- 0639 Jun, [facility] [place] [facility] [address] [id number] [place] [address]- 6932 Jun, [facility] [place] [facility] [address] [id number] [place] [address]- 1979 Jun, [facility] [place] [facility] [address] [id number] [place] [address]- 4776 Jun, [facility] [place] [facility] [address] [id number] [place]67 Jun, [facility] [place] [facility] [address] [id number] [place] [address]- 2619 May, [facility] [place] [facility] [address] [id number] [place] [address]- 0174 May, [facility] [place] [facility] [address] [id number] [place] [address]- 9567 May, [facility] [place] [facility] [address] [id number] [place] [address]- 4602 May, [facility] [place] [facility] [address] [id number] [place] [address]- 3444 May, [facility] [place] [facility] [address] [id number] [place] [address]- 2529 May, [facility] [place] [facility] [address] [id number] [place] [address]- 0811 May, [facility] [place] [facility] [address] [id number] [place] [address]- 3227 May, [facility] [place] [facility] [address] [id number] [place] [address]- 6380 May, [facility] [place] [facility] [address] [id number] [place] [address]- 3855 Apr, [facility] [place] [facility] [address] [id number] [place] [address]- 2606 Apr, [facility] [place] [facility] [address] [id number] [place] [address]- 8128 Apr, [facility] [place] [facility] [address] [id number] [place] [address]- 3947 Apr, [facility] [place] [facility] [address] [id number] [place] [address]- 6222 Apr, [facility] [place] [facility] [address] [id number] [place] [address]- 8577 Apr, [facility] [place] [facility] [address] [id number] [place] [address]- 3878 Apr, [facility] [place] [facility] [address] [id number] [place] [address]- 0671 Apr, [facility] [place] [facility] [address] [id number] [place] [address]- 9188 Apr, [facility] [place] [facility] [address] [id number] [place] [address]- 0778 Apr, [facility] [place] [facility] [address] [id number] [place] [address]- 3605 Apr, [facility] [place] [facility] [address] [id number] [place] [address]- 8945 Apr, [facility] [place] [facility] [address] [id number] [place] [address]- 0955 Mar, 2013 [facility] [place] [facility] [address] [id number] [place] [address]- 4747 Mar, 2013 [facility] [place] [facility] [address] [id number], [place] [address]- 7350 Mar, 2013 [facility] [place] [facility] [address] [id number] [place] [address]- 6715 Mar, 2013 [facility] [place] [facility] [address] [id number] [place] [address]- 9493 Mar, 2013 [facility] [place] [facility] [address] [id number], [place] [address]- 9792 Mar, 2013 [facility] [place] [facility] [address] [id number], [place] [address]- 8737 Mar, 2013 [facility] [place] [facility] [address] [id number], [place] [address]- 254 Mar, 2013 [facility] [place] [facility] [address] [id number], [place] [address]- 1049 Mar, 2013 [facility] [place] [facility] [address] [id number], [place] [address]- 3756 Mar, 2013 [facility] [place] [facility] [address] [id number] [place] [address]- 5790 Feb, [facility] [place] [facility] [address] [id number] [place] [address]- 4423 Feb, [facility] [place] [facility] [address] [id number] [place] [address]- 3125 Feb, [facility] [place] [facility] [address] [id number] [place] [address]- 3666 Feb, [facility] [place] [facility] [address] [id number] [place] [address]- 5571 Feb, [facility] [place] [facility] [address] [id number] [place] [address]- 8301 Feb, [facility] [place] [facility] [address] [id number] [place] [address]- 4262 Feb, [facility] [place] [facility] [address] [id number] [place] [address]- 9512 Feb, [facility] [place] [facility] [address] [id number] [place] [address]- 2745 Feb, [facility] [place] [facility] [address] [id number] [place] [address]- 1865 Feb, [facility] [place] [facility] [address] [id number] [place] [address]- 0719 Feb, [facility] [place] [facility] [address] [id number] [place] [address]- 5158 Feb, [facility] [place] [facility] [address] [id number] [place] [address]- 8744 Feb, [facility] [place] [facility] [address] [id number] [place] [address]- 1279 Feb, [facility] [place] [facility] [address] [id number] [place] [address]- 8371 Feb, [facility] [place] [facility] [address] [id number] [place] [address]- 4136 Feb, [facility] [place] [facility] [address] [id number] [place] [address]- 2042 Jan, [facility] [place] [facility] [address] [id number] [place] [address]- 4107 Jan, [facility] [place] [facility] [address] [id number] [place] [address]- 7528 Jan, [facility] [place] [facility] [address] [id number] [place] [address]- 7878 Jan, [facility] [place] [facility] [address] [id number] [place] [address]- 3110 Jan, [facility] [place] [facility] [address] [id number] [place] [address]- 5878 Jan, [facility] [place] [facility] [address] [id number] [place] [address]- 2308 Dec, [facility] [place] [facility] [address] [id number] [place] [address]- 0035 Dec, [facility] [place] [facility] [address] [id number] [place] [address]- 9156 Dec, [facility] [place] [facility] [address] [id number] [place] [address]- 4302 Dec, [facility] [place] [facility] [address] [id number] [place] [address]- 6891 Dec, [facility] [place] [facility] [address] [id number] [place] [address]- 0240 Dec, [facility] [place] [facility] [address] [id number] [place] [address]- 4926 Dec, [facility] [place] [facility] [address] [id number] [place] [address]- 9499 Dec, [facility] [place] [facility] [address] [id number] [place] [address]- 2029 November, [facility] [place] [facility] [address] [id number] [place] [address]- 2688 November, [facility] [place] [facility] [address] [id number] [place] [address]- 6777 November, [facility] [place] [facility] [address] [id number] [place] [address]- 3014 November, [facility] [place] [facility] [address] [id number] [place] [address]- 0446 November, [facility] [place] [facility] [address] [id number] [place] [address]- 8166 November, [facility] [place] [facility] [address] [id number] [place] [address]- 2776 Oct, [facility] [place] [facility] [address] [id number] [place] [address]- 5148 Oct, [facility] [place] [facility] [address] [id number] [place] [address]- 9883 Oct, [facility] [place] [facility] [address] [id number] [place] [address]- 3402 Oct, [facility] [place] [facility] [address] [id number] [place] [address]- 5666 Sep, [facility] [place] [facility] [address] [id number] [place] [address]- 0870 Sep, [facility] [place] [facility] [address] [id number] [place] [address]- 5960 Sep, [facility] [place] [facility] [address] [id number] [place] [address]- 0344 Sep, [facility] [place] [facility] [address] [id number] [place] [address]- 8481 Sep, [facility] [place] [facility] [address] [id number] [place] [address]- 4813 Sep, [facility] [place] [facility] [address] [id number] [place] [address]- 6221 Aug, [facility] [place] [facility] [address] [id number] [place] [address]- 6788 Aug, [facility] [place] [facility] [address] [id number] [place] [address]- 4670 Aug, [facility] [place] [facility] [address] [id number] [place] [address]- 0106 Aug, [facility] [place] [facility] [address] [id number] [place] [address]- 5232 Aug, [facility] [place] [facility] [address] [id number] [place] [address]- 9491 Aug, [facility] [place] [facility] [address] [id number] [place] [address]- 4757 Jul, [facility] [place] [facility] [address] [id number] [place] [address]- 0694 Jul, [facility] [place] [facility] [address] [id number] [place] [address]- 5321 Jul, [facility] [place] [facility] [address] [id number] [place] [address]- 6389 Jul, [facility] [place] [facility] [address] [id number] [place] [address]- 4422 Jul, [facility] [place] [facility] [address] [id number] [place] [address]- 3541 Jul, [facility] [place] [facility] [address] [id number] [place] [address]- 2024 Jul, [facility] [place] [facility] [address] [id number] [place] [address]- 0207 Jul, [facility] [place] [facility] [address] [id number] [place] [address]- 4535 Jul, [facility] [place] [facility] [address] [id number] [place] [address]- 5258 Jul, [facility] [place] [facility] [address] [id number], [place] [address]- 1229 Jul, [facility] [address] [id number] [place] [address]- 0893 Jul, [facility] [address] [id number] [place] [address]- 1054 Jul, [facility] [address] [id number] [place] [address]- 1005 Jul, [facility] [address] [id number], [place] [address]- 3987 Jul, [facility] [address] [id number] [place] [address]- 4800 Jun, [facility] [address] [id number] [place] [address]- 3782 Jun, [facility] [address] [id number], [place] [address]- 1765 Jun, [facility] [address] [id number], [place] [address]- 2699 Jun, [facility] [address] [id number], [place] [address]- 0633 May, [facility] [address] [id number], [place] [address]- 6469 May, [facility] [address] [id number] [id number] May, [facility] [place] [facility] [address] [id number], [place] [address]- 0755 May, [facility] [place] [facility] [address] [id number] [place] [address]- 1681 May, [facility] [place] [facility] [address] [id number], [place] [address]- 4980 May, [facility] [place] [facility] [address] [id number], [place] [address]- 4159 May, [facility] [place] [facility] [address] [id number], [place] [address]- 0766 May, [facility] [address], [place] [address]- 0113 May, [facility] [address] [id number] May, [facility] [address], [place] [address]- 2546 May, [facility] [address] [id number] May, [facility] [address], [place] [address]- 9042 May, [id number] [place] [id number] May, [facility] [address], [place] [address]- 2729 May, IMMUNIZATIONS No Known Immunizations SOCIAL HISTORY Never Assessed REASON FOR VISIT add Metoprololo PLAN OF CARE VITAL SIGNS MEDICATIONS Medication Instructions Dosage Frequency Start Date End Date Duration Status Metoprolol Tartrate 25 MG Orally Twice a day 1/2 tablet with food 12h Apr, Active RESULTS No Results PROCEDURES No Known [...]
--- OUTSIDE RECORDS SUMMARY | 2018-03-18 20:32 | XMS REPORT ---
Author Author DAPHNE YUSUF Organization [facility] Address [address] [place] [address] Care Team Providers Care Geology Faculty Member Name Role Phone DAPHNE YUSUF Unavailable PROBLEMS Type Condition ICD9-CM Code KUL29-IK Code Onset Dates Condition Status SNOMED Code Problem Hx of Clostridium difficile infection Z86.19 Active 765389732 Problem History of arthroplasty of right knee Z96.651 Active 072911125 Problem Dysphagia, unspecified dysphagia R13.10 Active 71777350 Problem Chronic pain syndrome G89.4 Active 948169902 Problem 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 417314784 Problem Anxiety F41.9 Active 51784514 Problem Leg pain, left M79.605 Active 312385500 Problem Depression, unspecified depression type F32.9 Active 06543588 Problem Iron deficiency anemia, unspecified iron deficiency anemia type D50.9 Active 76586514 Problem Anemia, unspecified type D64.9 Active 084409990 Problem Seasonal allergic rhinitis due to pollen J30.1 Active 38673635 Problem Insomnia, unspecified G47.00 Active 436172902 Problem 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 867447837 Problem History of cerebrovascular accident with current residual effects I69.90 Active 178678659 Problem Peripheral vascular disease, unspecified I73.9 Active 550151888 Problem Rheumatoid arthritis, involving unspecified site, unspecified rheumatoid factor presence M06.9 Active 79260572 Problem Other chronic pain G89.29 Active 27876857 Problem Primary insomnia F51.01 Active 0086611 Problem Chronic obstructive pulmon disease w acute lower resp infct J44.0 Active 332458594 Problem Atrial fibrillation I48.91 Active 67988639 Problem Dysthymia F34.1 Active 68791431 Problem Osteoarthritis of foot M19.079 Active 442898212 Problem Rheumatoid arthritis M06.9 Active 28329059 Problem Tobacco abuse, 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 [id number] [place] [address] 61254- 8073 14 Dec, 2017 Chronic pain syndrome G89.4 [facility] [id number] [place] [address] 39715- 4616 November, Chronic pain syndrome G89.4 [facility] [address] 25988- 1534 November, [facility] [address] 63161- 4767 Oct, Chronic pain syndrome G89.4 [facility] [id number] [place] [address] 94298- 1648 Oct, [facility] [address] 93009- 2256 Oct, Chronic pain syndrome G89.4 [facility] [address] 52250- 1771 Oct, [facility] [id number] [place] [address] 05210- 8820 Oct, [facility] [id number] [place] [address] 38757- 0010 Sep, Left upper quadrant pain R10.12 ; Chronic pain syndrome G89.4 ; Left lower quadrant pain R10.32 ; Other chronic pain G89.29 ; Sacrococcygeal disorders, not elsewhere classified M53.3 and Seasonal allergic rhinitis due to pollen J30.1 [facility] [id number] [place] [address] 64961- 2453 Sep, Chronic pain syndrome G89.4 [facility] [id number] [place] [address] 66018- 0632 Sep, [facility] [address] [address] 9806 Aug, Chronic pain syndrome G89.4 [facility] [id number] [place] [address] 08822- 3079 Aug, [facility] [id number] [place] [address] 24567- 3082 Aug, Insomnia, unspecified G47.00 [facility] [id number] [place] [address] 14745- 6485 Jul, [facility] [id number] [place] [address] 45282- 1253 Jul, [facility] [id number] [place] [address] 79917- 8304 Jul, Chronic pain syndrome G89.4 [facility] [id number] [place] [address] 56289- 4804 Jun, Chronic pain syndrome G89.4 [facility] [id number] [place] [address] 42337- 0851 Jun, Chronic pain syndrome G89.4 [facility] [id number] [place] [address] 80821- 8042 May, [facility] [id number] [place] [address] 29298- 6038 May, Shortness of breath R06.02 ; Peripheral vascular disease, unspecified I73.9 ; Pain in right knee M25.561 ; Other chronic pain G89.29 ; Chest wall pain R07.89 ; Chronic pain syndrome G89.4 ; Primary insomnia F51.01 and Ear pain, left H92.02 [facility] [id number] [place] [address] 21894- 5195 06 May, 2017 Anxiety F41.9 [facility] [address] [address] 7837 Apr, Pneumonia due to infectious organism, unspecified laterality , unspecified part of lung J18.9 ; Hypoxia R09.02 ; Bradycardia R00.1 ; History of Clostridium difficile Z87.19 and Primary insomnia F51.01 [facility] [address] 03818- 7422 Apr, Anxiety F41.9 [facility] [address] 58483- 7058 Apr, [facility] [address] 25521- 4559 Mar, Anxiety F41.9 [facility] [address] 73761- 5996 Feb, [facility] [address] 29991- 7569 Feb, [facility] [address] 41135- 9367 Feb, Abnormal finding on urinalysis R82.90 [facility] [address] 25576- 2010 Feb, [facility] [address] 21028- 4459 Feb, Shortness of breath R06.02 ; Tachycardia R00.0 ; Cough R05 ; Ill feeling R68.89 and Abnormal finding on urinalysis R82.90 [facility] [id number] [place] [address] 45386- 9849 Feb, Anxiety F41.9 [facility] [id number] [place] [address] 34446 -4557 Feb, Sore throat J02.9 and Acute diffuse otitis externa of left ear H60.312 [facility] [id number] [place] [address] 07511- 9613 Jan, [facility] [address] 24200- 5388 Jan, [facility] [id number] [id number] Jan, [facility] [address] [place] [address] 59822- 0440 Jan, Depression, unspecified depression type F32.9 ; Chronic bronchitis, unspecified chronic bronchitis type J42 ; Chronic pain syndrome G89.4 and Anxiety F41.9 [facility] [id number] [place] [address] 14752- 4817 Jan, [facility] [address] [place] [address] 01458- 6604 Jan, [facility] [id number] [place] [address] 30683- 0514 Jan, [facility] [id number] [place] [address] [id number] Jan, Chronic pain syndrome G89.4 [email or web address] [address] [id number] Dec, History of right knee surgery Z98.890 [facility] [address] [place] [address] 62907- 0918 Dec, [facility] [address] [place] [address] 33908- 5656 Dec, Chronic pain syndrome G89.4 [facility] [address] [place] [address] 25265- 4972 November, Anxiety F41.9 [facility] [address] [address] November, Acute cystitis without hematuria N30.00 [facility] [id number] [place] [address] 26565 -5802 November, Fever, unspecified fever cause R50.9 and Acute cystitis without hematuria N30.00 [facility] [address] [place] [address] 98525- 8724 November, Chronic pain syndrome G89.4 [facility] [address] [address]- 2010 Oct, Anxiety F41.9 [facility] [address] [place] [address] 82972- 5592 Oct, Chronic pain syndrome G89.4 [facility] [address] [place] [address] 98469- 1988 Oct, Chronic pain syndrome G89.4 [facility] [address] [place] [address] 84792- 0688 Oct, [facility] [id number] [place] [address] 83801- 5542 Oct, Chronic pain syndrome G89.4 ; Pain in right knee M25.561 ; History of Clostridium difficile Z87.19 ; Iron deficiency anemia, unspecified iron deficiency anemia type D50.9 ; Peripheral vascular disease, unspecified I73.9 and Atrial fibrillation I48.91 [facility] [address] [place] [address] 67446- 5933 Oct, [facility] [id number] [place] [address] 55476- 5164 Oct, Chronic pain syndrome G89.4 [facility] [address] [place] [address] 46380- 2817 Sep, [facility] [id number] [place] [address] 10504- 6330 Sep, Depression, unspecified depression type F32.9 ; Chronic bronchitis, unspecified chronic bronchitis type J42 ; Chronic pain syndrome G89.4 and Anxiety F41.9 [facility] [address] [id number] Sep, History of Clostridium difficile infection Z86.19 and History of stroke Z86.73 [facility] [id number] [place] [address] [id number] Sep, Anxiety F41.9 [facility] [id number] [address]- 8770 08 Sep, 2016 Chronic pain syndrome G89.4 [facility] [address] [place] [address] 91898- 2425 Sep, [facility] [id number] [place] [address] [id number] Sep, [facility] [id number] [place] [address] 80207- 2632 Aug, Anxiety F41.9 [facility] [address] [place] [address] 36451- 1377 Aug, Anxiety F41.9 [facility] [id number] [place] [address] 48584- 5997 16 Aug, 2016 [facility] [id number] [place] [address] 83848- 6423 14 Aug, 2016 Acute knee pain, unspecified laterality M25.569 [facility] [address] [place] [address] 17292- 3654 13 Aug, 2016 [facility] [address] [place] [address] 09572- 2471 09 Aug, 2016 Chronic pain syndrome G89.4 [facility] [id number] [place] [address] 38182- 9792 Aug, [facility] [id number] [place] [address] 02778- 4577 Aug, [facility] [id number] [place] [address] 41956- 5708 Jul, [facility] [id number] [place] [address] 488532- 7954 Jul, Anxiety F41.9 [facility] [address] [address] Jul, Clostridium difficile diarrhea A04.7 [email or web address] [address] [id number] Jul, Clostridium difficile diarrhea A04.7 ; Chronic pain syndrome G89.4 ; Chronic obstructive pulmon disease w acute lower resp infct J44.0 and Pain in right knee M25.561 [facility] [id number] [id number] Jul, [facility] [address] [address] Jul, Anxiety F41.9 and Chronic pain syndrome G89.4 [facility] [address] [address]- 1815 Jun, Anxiety F41.9 [facility] [address] [place] [address] 35768- 2332 Jun, Rheumatoid arthritis 714.0 [facility] [address] [place] [address] 06642- 2859 Jun, Chronic pain syndrome G89.4 [facility] [address] [address]- 9042 Jun, [facility] [id number] [place] [address] 40036- 4206 Jun, [facility] [address] [address]- 3096 Jun, History of pneumonia Z87.01 and History of Clostridium difficile Z87.19 [facility] [address] [address]- 4510 Jun, [facility] [address] [address]- 9534 May, [facility] [id number] [place] [address] 13639- 7661 May, Anxiety F41.9 [facility] [address] [address]- 0581 May, Chronic pain syndrome G89.4 [facility] [id number] [place] [address] 14505- 0358 May, Chronic bronchitis, unspecified chronic bronchitis type J42 [facility] [id number] [place] [address] 04989- 0994 May, [facility] [id number] [place] [address] 61624- 9990 May, C. difficile diarrhea A04.7 ; Peripheral edema R60.9 ; COPD (chronic obstructive pulmonary disease) J44.9 ; Rheumatoid arthritis, involving unspecified site, unspecified rheumatoid factor presence M06.9 ; Pain in right knee M25.561 ; Pain in left knee M25.562 and Other chronic pain G89.29 [facility] [id number] [place] [address] 62494- 8282 May, [facility] [id number] [place] [address] 65854- 0679 May, [facility] [id number] [place] [address] 33440- 5654 May, Anxiety F41.9 [facility] [id number] [place] [address] 57334- 0270 Apr, [facility] [id number] [place] [address] 24021- 3564 Apr, Chronic pain syndrome G89.4 [facility] [id number] [place] [address] 52453- 4976 Apr, Leg pain, left M79.605 [facility] [id number] [place] [address] 43204- 3291 Apr, [facility] [id number] [place] [address] 45457- 3569 Apr, [facility] [id number] [place] [address] 21232- 5627 Apr, [facility] [id number] [place] [address] 30129- 7543 28 Mar, 2016 Chronic pain syndrome G89.4 [facility] [id number] [place] [address] 38410- 9910 22 Mar, 2016 Acute frontal sinusitis, recurrence not specified J01.10 [facility] [id number] [place] [address] 68816- 6358 20 Mar, 2016 Iron deficiency anemia, unspecified iron deficiency anemia type D50.9 ; Rheumatoid arthritis with positive rheumatoid factor, involving unspecified site M05.9 and Depression, unspecified depression type F32.9 [facility] [id number] [place] [address] 73795- 7542 13 Mar, 2016 Iron deficiency anemia, unspecified iron deficiency anemia type D50.9 ; Depression, unspecified depression type F32.9 and Rheumatoid arthritis with positive rheumatoid factor, involving unspecified site M05.9 [facility] [id number] [place] [address] 16034- 1618 06 Mar, 2016 [facility] [id number] [place] [address] 74265- 8355 Mar, [facility] [id number] [place] [address] 66696- 2128 Feb, Chronic pain syndrome G89.4 [facility] [id number] [place] [address] 17382- 3876 30 Feb, 2016 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 ; Status post CVA Z86.73 ; Hemiplegia G81.90 and Anemia, unspecified type D64.9 [facility] [address] [address]- 8395 Feb, [facility] [id number] [place] [address] 10614- 1527 Feb, Anemia, unspecified type D64.9 [facility] [address] [place] [address] 14343- 8085 Feb, [facility] [id number] [place] [address] 09258- 2314 Feb, Iron deficiency anemia, unspecified iron deficiency anemia type D50.9 [facility] [id number] [place] [address] 40032- 0873 Feb, [facility] [id number] [place] [address] 58741- 3035 Feb, Chronic bronchitis, unspecified chronic bronchitis type J42 [facility] [id number] [place] [address] 08556- 8822 Feb, Iron deficiency anemia, unspecified iron deficiency anemia type D50.9 [facility] [id number] [place] [address] 66078- 6615 Feb, Chronic pain syndrome G89.4 [facility] [id number] [place] [address] 54925- 2172 Feb, Anemia, unspecified type D64.9 and Hypoxia R09.02 [facility] [id number] [place] [address] 49282- 3537 Feb, Anemia, unspecified type D64.9 [facility] [id number] [place] [address] 07993- 2724 Jan, [facility] [id number] [place] [address] 84336- 5994 Jan, Anemia, unspecified type D64.9 [facility] [id number] [place] [address] 24506- 0541 Jan, [facility] [id number] [place] [address] 06317- 5075 Jan, Anemia, unspecified type D64.9 [facility] [id number] [place] [address] 07774- 5687 Jan, Anemia, unspecified type D64.9 [facility] [address] [place] [address] 85050- 6499 Jan, [facility] [id number] [place] [address] 50422- 8247 Jan, Anemia, unspecified type D64.9 [facility] [id number] [place] [address] 51631- 6261 Jan, [facility] [id number] [place] [address] 86393- 3071 Jan, [facility] [id number] [place] [address] 06701- 3374 Jan, Chronic pain syndrome G89.4 [facility] [id number] [place] [address] 27302- 8934 Jan, Anemia, unspecified type D64.9 [facility] [id number] [place] [address] 47236- 4941 Jan, Dysthymia F34.1 ; Cervicalgia M54.2 ; Fatigue, unspecified type R53.83 and Depression, unspecified depression type F32.9 [facility] [id number] [place] [address] 63088- 1042 Dec, [facility] [id number] [place] [address] 59800- 7167 Dec, Anxiety F41.9 [facility] [id number] [place] [address] 33767- 1366 Dec, Chronic pain syndrome G89.4 [facility] [id number] [place] [address] 23700- 4902 November, [facility] [id number] [place] [address] 65835- 1043 November, Edema R60.9 and Dizziness R42 [facility] [id number] [place] [address] 39662- 4998 November, [facility] [id number] [place] [address] 45022- 0959 November, [facility] [id number] [address]- 7451 November, COPD (chronic obstructive pulmonary disease) J44.9 ; Increased tracheal secretions J39.8 and Edema R60.9 [facility] [id number] [place] [address] 68193 -3169 29 Oct, 2015 [facility] [id number] [place] [address] 67181 -4254 Oct, Shortness of breath R06.02 and Edema R60.9 [facility] [id number] [place] [address] 79619- 2006 Oct, Chronic bronchitis, unspecified chronic bronchitis type J42 ; Peripheral vascular disease, unspecified I73.9 ; Rheumatoid arthritis M06.9 and Atrial fibrillation I48.91 [facility] [id number] [place] [address] 07370- 7419 Oct, [facility] [id number] [place] [address] 80892- 9210 Oct, [facility] [id number] [place] [address] 34422- 1128 Oct, [facility] [id number] [place] [address] 47263- 0362 Oct, [facility] [id number] [place] [address] 63118 -4377 Oct, COPD exacerbation J44.1 [facility] [id number] [place] [address] 09356- 3721 Sep, [facility] [id number] [place] [address] 31792- 7653 Sep, [facility] [id number] [place] [address] 37046- 3375 16 Sep, 2015 [facility] [id number] [place] [address] 58539- 9313 Aug, [facility] [id number] [address] Aug, 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 and PVD (peripheral vascular disease ) I73.9 [facility] [id number] [place] [address] 15225- 9505 Aug, Bronchitis J40 ; COPD (chronic obstructive pulmonary disease ) J44.9 and Dysthymia F34.1 [facility] [id number] [place] [address] 43766- 5030 Aug, [facility] [id number] [place] [address] 48249- 4605 Jul, [facility] [id number] [place] [address] 34145- 7839 Jul, [facility] [id number] [place] [address] 11861- 5897 Jul, [facility] [id number] [place] [address] 79144- 0036 Jun, [facility] [id number] [place] [address] 83669- 9436 Jun, [facility] [id number] [place] [address] 48045- 6484 Jun, Peripheral vascular disease I73.9 [facility] [id number] [place] [address] 62518- 4018 Jun, [facility] [id number] [place] [address] 01739- 2545 Jun, [facility] [id number] [place] [address] 02156- 5476 Jun, Leg pain, left M79.605 ; Dysphagia, unspecified dysphagia R13.10 ; Insomnia, unspecified type G47.00 ; PVD (peripheral vascular disease) I73.9 and 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 [facility] [id number] [place] [address] [place] [address] May, [facility] [address] [facility] [id number] [address] May, [facility] [facility] [id number] [address] May, [facility] [address] [address] 6[address] May, [facility] [id number] [place] [address] 59136- 6611 May, [facility] [id number] [place] [address] 79057- 3237 Apr, [facility] [id number] [place] [address] 31798- 0729 Apr, [facility] [id number] [place] [address] 02165- 2175 Mar, [facility] [address] [address] 8799 Mar, [facility] [address] [address] 4846 Feb, [facility] [address] [address] Feb, Nicotine abuse 305.1 ; Arthralgia 719.40 and 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 [facility] [address] [address] Feb, [facility] [address] [address] 5598 Jan, [facility] [address] [address] 6897 Jan, [facility] [address] [address] 9083 Jan, [facility] [id number] [address] 1195 Jan, [facility] [id number] [place] [address] 846360- 6090 Jan, 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 ; Rheumatoid arthritis 714.0 ; Hypertension 401.9 ; GERD (gastroesophageal reflux disease) 530.81 ; Nicotine addiction 305.1 and Leukocytosis 288.60 [facility] [id number] [place] [address] 57710- 2651 Jan, [facility] [id number] [place] [address] 06457- 9968 Jan, [facility] [id number] [place] [address] 68751- 5241 Jan, [facility] [id number] [place] [address] 73532- 5175 Jan, [facility] [id number] [place] [address] 104702- 5721 Jan, [facility] [id number] [place] [address] 17097- 2266 Dec, [facility] [id number] [place] [address] 499245- 7951 Dec, [facility] [id number] [place] [address] 21505- 6069 Dec, [facility] [id number] [place] [address] 41004- 2453 Dec, [facility] [id number] [place] [address] 53872- 8945 November, [facility] [id number] [place] [address] 43246- 9308 November, [facility] [address] [address]- 6173 November, Shortness of breath 786.05 [facility] [id number] [place] [address] 74618- 2568 November, Rheumatoid arthritis 714.0 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 [id number] [address]- 2042 November, Neuropathy 355.9 ; Insomnia 780.52 ; Dysthymia 300.4 ; Shortness of breath 786.05 ; Rheumatoid arthritis 714.0 and Nausea 787.02 [facility] [id number] [address]- 1982 November, [facility] [id number] [place] [address] 98474- 6020 November, [facility] [id number] [place] [address] 49051- 4692 Oct, [facility] [id number] [place] [address] 07923- 3947 Oct, [facility] [id number] [place] [address] 58708- 0492 Oct, [facility] [id number] [place] [address] 18157- 5313 Oct, [facility] [address] [address]- 5539 Sep, [facility] [id number] [place] [address] 72556- 6348 Sep, [facility] [address] [address]- 4137 Sep, [facility] [id number] [place] [address] 95605- 2736 Sep, [facility] [address] 1430 Sep, [facility] [id number] [place] [address] 77356- 8159 Sep, [facility] [place] [facility] [address] [id number] [place] [address]- 6804 Sep, [facility] [place] [facility] [address] [id number] [place] [address]- 9169 Sep, [facility] [place] [facility] [address] [id number] [place] [address]- 3978 Aug, [facility] [place] [facility] [address] [id number] [place] [address]- 1389 Aug, [facility] [place] [facility] [address] [id number] [place] [address]- 2449 Aug, [facility] [place] [facility] [address] [id number] [place] [address]- 1737 Aug, [facility] [place] [facility] [address] [id number] [place] [address]- 8979 Aug, [facility] [place] [facility] [address] [id number] [place] [address]- 5259 Aug, [facility] [place] [facility] [address] [id number] [place] [address]- 7618 Jul, [facility] [place] [facility] [address] [id number] [place] [address]- 9713 Jul, [facility] [place] [facility] [address] [id number] [place] [address]- 1590 Jul, [facility] [place] [facility] [address] [id number] [place] [address]- 9990 Jul, [facility] [place] [facility] [address] [id number] [place] [address]- 6617 Jul, [facility] [place] [facility] [address] [id number] [place] [address]- 3904 Jul, [facility] [place] [facility] [address] [id number] [address]- 9685 Jul, [facility] [place] [facility] [address] [id number] [place] [address]- 4251 Jul, [facility] [place] [facility] [address] [id number] [place] [address]- 0225 Jul, [facility] [place] [facility] [address] [id number] [place] [address]- 9750 Jul, [facility] [place] [facility] [address] [id number] [place] [address]- 3983 Jun, [facility] [place] [facility] [address] [id number] [place] [address]- 1444 Jun, [facility] [place] [facility] [address] [id number] [place] [address]- 9537 Jun, [facility] [place] [facility] [address] [id number] [place] [address]- 0615 Jun, [facility] [place] [facility] [address] [id number] [place] [address]- 8277 Jun, [facility] [place] [facility] [address] [id number] [place] [address]- 8139 Jun, [facility] [place] [facility] [address] [id number] [place] [address]- 5521 Jun, [facility] [place] [facility] [address] [id number] [place] [address]- 6510 Jun, [facility] [place] [facility] [address] [id number] [place] [address]- 8457 Jun, [facility] [place] [facility] [address] [id number] [place] [address]- 1763 Jun, [facility] [place] [facility] [address] [id number] [place] [address]- 9643 Jun, [facility] [place] [facility] [address] [id number] [place] 2986 Jun, [facility] [place] [facility] [address] [id number] [place] [address]- 5198 Jun, [facility] [place] [facility] [address] [id number] [place] [address]- 1925 Jun, [facility] [place] [facility] [address] [id number] [place] 4294 Jun, [facility] [place] [facility] [address] [id number] [place] [address]- 9067 Jun, [facility] [place] [facility] [address] [id number] [place] [address]- 3953 May, [facility] [place] [facility] [address] [id number] [place] [address]- 5115 May, [facility] [place] [facility] [address] [id number] [place] [address]- 9114 May, [facility] [place] [facility] [address] [id number] [place] [address]- 6961 May, [facility] [place] [facility] [address] [id number] [place] [address]- 0031 May, [facility] [place] [facility] [address] [id number] [place] [address]- 8736 May, [facility] [place] [facility] [address] [id number] [place] [address]- 5835 May, [facility] [place] [facility] [address] [id number] [address]- 8856 May, [facility] [place] [facility] [address] [id number] [address]- 2902 May, [facility] [place] [facility] [address] [id number] [place] [address]- 5370 Apr, [facility] [place] [facility] [address] [id number] [place] [address]- 1766 Apr, [facility] [place] [facility] [address] [id number] [place] [address]- 1226 Apr, [facility] [place] [facility] [address] [id number] [place] [address]- 3527 13 Apr, 2013 [facility] [place] [facility] [address] [id number] [place] [address]- 5024 10 Apr, 2014 [facility] [place] [facility] [address] [id number] [place] [address]- 0322 10 Apr, 2014 [facility] [place] [facility] [address] [id number] [place] [address]- 5879 Apr, 2013 [facility] [place] [facility] [address] [id number] [place] [address]- 4588 Apr, 2013 [facility] [place] [facility] [address] [id number] [place] [address]- 3471 Apr, [facility] [place] [facility] [address] [id number] [place] [address]- 0739 Apr, [facility] [place] [facility] [address] [id number] [place] [address]- 8081 Apr, [facility] [place] [facility] [address] [id number] [place] [address]- 7900 Apr, [facility] [place] [facility] [address] [id number] [place] [address]- 7970 22 Mar, 2013 [facility] [place] [facility] [address] [id number] [place] [address]- 0563 22 Mar, 2013 [facility] [place] [facility] [address] [id number] [place] [address]- 2555 19 Mar, 2013 [facility] [place] [facility] [address] [id number] [place] [address]- 2547 19 Mar, 2013 [facility] [place] [facility] [address] [id number] [place] [address]- 6518 11 Mar, 2013 [facility] [place] [facility] [address] [id number] [place] [address]- 5859 11 Mar, 2013 [facility] [place] [facility] [address] [id number] [place] [address]- 3569 Mar, [facility] [place] [facility] [address] [id number] [place] [address]- 8756 Mar, [facility] [place] [facility] [address] [id number] [place] [address]- 4451 Mar, [facility] [place] [facility] [address] [id number] [place] [address]- 6714 Mar, [facility] [place] [facility] [address] [id number] [place] [address]- 9684 Feb, [facility] [place] [facility] [address] [id number] [place] [address]- 6332 Feb, [facility] [place] [facility] [address] [id number] [place] [address]- 2496 Feb, [facility] [place] [facility] [address] [id number] [place] [address]- 7902 Feb, [facility] [place] [facility] [address] [id number] [place] [address]- 5788 Feb, [facility] [place] [facility] [address] [id number] [place] [address]- 2577 Feb, [facility] [place] [facility] [address] [id number] [place] [address]- 7592 Feb, [facility] [place] [facility] [address] [id number] [place] [address]- 2745 Feb, [facility] [place] [facility] [address] [id number] [place] [address]- 9073 Feb, [facility] [place] [facility] [address] [id number] [place] [address]- 4409 Feb, [facility] [place] [facility] [address] [id number] [place] [address]- 2373 Feb, [facility] [place] [facility] [address] [id number] [place] [address]- 5949 Feb, [facility] [place] [facility] [address] [id number] [place] [address]- 5487 Feb, [facility] [place] [facility] [address] [id number] [place] [address]- 1591 Feb, [facility] [place] [facility] [address] [id number] [place] [address]- 8357 Feb, [facility] [place] [facility] [address] [id number] [place] [address]- 8975 Feb, [facility] [place] [facility] [address] [id number] [place] [address]- 4844 Jan, [facility] [place] [facility] [address] [id number] [place] [address]- 2144 Jan, [facility] [place] [facility] [address] [id number] [place] [address]- 0929 Jan, [facility] [place] [facility] [address] [id number] [place] [address]- 0860 Jan, [facility] [place] [facility] [address] [id number] [place] [address]- 4046 Jan, [facility] [place] [facility] [address] [id number] [place] [address]- 7947 Jan, [facility] [place] [facility] [address] [id number] [place] [address]- 9396 Dec, [facility] [place] [facility] [address] [id number] [place] [address]- 6315 Dec, [facility] [place] [facility] [address] [id number] [place] [address]- 8299 Dec, [facility] [place] [facility] [address] [id number] [place] [address]- 5061 Dec, [facility] [place] [facility] [address] [id number] [place] [address]- 3714 Dec, [facility] [place] [facility] [address] [id number] [place] [address]- 4976 Dec, [facility] [place] [facility] [address] [id number] [place] [address]- 9922 Dec, [facility] [place] [facility] [address] [id number] [place] [address]- 1382 Dec, [facility] [place] [facility] [address] [id number] [place] [address]- 4848 November, [facility] [place] [facility] [address] [id number] [place] [address]- 2372 November, [facility] [place] [facility] [address] [id number] [place] [address]- 7717 November, [facility] [place] [facility] [address] [id number] [place] [address]- 2664 November, [facility] [place] [facility] [address] [id number] [place] [address]- 8743 November, [facility] [place] [facility] [address] [id number] [place] [address]- 5457 November, [facility] [place] [facility] [address] [id number] [place] [address]- 2755 Oct, [facility] [place] [facility] [address] [id number] [place] [address]- 3174 Oct, [facility] [place] [facility] [address] [id number] [place] [address]- 8166 Oct, [facility] [place] [facility] [address] [id number] [place] [address]- 9020 Oct, [facility] [place] [facility] [address] [id number] [place] [address]- 3869 Sep, [facility] [place] [facility] [address] [id number] [place] [address]- 0313 Sep, [facility] [place] [facility] [address] [id number] [place] [address]- 5462 Sep, [facility] [place] [facility] [address] [id number] [place] [address]- 7044 Sep, [facility] [place] [facility] [address] [id number] [place] [address]- 6509 Sep, [facility] [place] [facility] [address] [id number] [place] [address]- 8707 Sep, [facility] [place] [facility] [address] [id number] [place] [address]- 7193 Aug, [facility] [place] [facility] [address] [id number] [place] [address]- 3123 Aug, [facility] [place] [facility] [address] [id number] [place] [address]- 0645 Aug, [facility] [place] [facility] [address] [id number] [place] [address]- 3084 Aug, [facility] [place] [facility] [address] [id number] [place] [address]- 0974 Aug, [facility] [place] [facility] [address] [id number] [place] [address]- 5276 Aug, [facility] [place] [facility] [address] [id number] [place] [address]- 4128 Jul, [facility] [place] [facility] [address] [id number] [place] [address]- 2855 Jul, [facility] [place] [facility] [address] [id number] [place] [address]- 9543 Jul, [facility] [place] [facility] [address] [id number] [place] [address]- 1474 Jul, [facility] [place] [facility] [address] [id number] [place] [address]- 7910 Jul, [facility] [place] [facility] [address] [id number] [place] [address]- 4352 Jul, [facility] [place] [facility] [address] [id number] [place] [address]- 0265 Jul, [facility] [place] [facility] [address] [id number] [place] [address]- 0153 Jul, [facility] [address] [id number] [place] [address]- 8919 Jul, [facility] [address] [id number] [place] [address]- 7701 Jul, [facility] [address] [id number] [place] [address]- 4299 Jul, [facility] [address] [id number] [place] [address]- 4649 Jul, [facility] [address] [id number] [place] [address]- 3639 Jul, [facility] [address] [id number] [place] [address]- 1865 Jul, [facility] [address] [id number] [place] [address]- 4081 Jul, [facility] [address] [id number] [place] [address]- 4633 Jun, [facility] [address] [id number] [place] [address]- 8861 Jun, [facility] [address] [id number] [place] [address]- 0850 Jun, [facility] [address] [id number] [place] [address]- 3538 Jun, [facility] [address] [id number] [place] [address]- 4322 May, [facility] [address] [id number] [place] [address]- 2381 May, [facility] [address] [id number] [place] [id number] May, [facility] [address] [id number] [address]- 9505 May, [facility] [id number] [address]- 6730 May, [facility] [address] [address]- 3996 May, [facility] [address] [address]- 1874 May, [facility] [address] [address]- 2207 May, [facility] [address] [address]- 4115 May, [facility] [address] [id number] May, [facility] [address] [address]- 0006 May, [facility] [address] [id number] May, [facility] [address] [id number] [address]- 4336 May, [facility] [address] [id number] May, [facility] [address] [id number] [address]- 0896 May, IMMUNIZATIONS No Known Immunizations SOCIAL HISTORY Never Assessed REASON FOR VISIT Controlled Med Refill PLAN OF CARE VITAL SIGNS MEDICATIONS Medication Instructions Dosage Frequency Start Date End Date Duration Status Oxycodone-Acetaminophen 5-325 MG Orally 2 times a day 1 tablet 12h Jul, 28 days Active RESULTS No Results [...] leukocytosis--[facility]ank [facility] 01/08/16 Hospitalization History pseudomemranous colitis, sepsis--[facility] 04/21/2016 Hospitalization History C Diff--[facility] 05/10/2016 Hospitalization History sepsis, pneumonia, diarrhea--[facility] 06/11/16 Hospitalization History recurrent cdiff, pneumonia-[facility] 07/22/16 Hospitalization History sepsis,pneumonia- [facility]
--- OUTSIDE RECORDS SUMMARY | 2018-03-18 20:33 | XMS REPORT ---
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 Service Supervisor Name Role Phone DAPHNE YUSUF Unavailable PROBLEMS Type Condition ICD9-CM Code WRD08-VA Code Onset Dates Condition Status SNOMED Code Problem Hx of Clostridium difficile infection Z86.19 Active 864992785 Problem History of arthroplasty of right knee Z96.651 Active 361678369 Problem Dysphagia, unspecified dysphagia R13.10 Active 56759738 Problem Chronic pain syndrome G89.4 Active 535140846 Problem 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 095222525 Problem Anxiety F41.9 Active 57917479 Problem Leg pain, left M79.605 Active 164049671 Problem Depression, unspecified depression type F32.9 Active 27147927 Problem Iron deficiency anemia, unspecified iron deficiency anemia type D50.9 Active 85398586 Problem Anemia, unspecified type D64.9 Active 273140897 Problem Seasonal allergic rhinitis due to pollen J30.1 Active 44615734 Problem Insomnia, unspecified G47.00 Active 618866383 Problem 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 397745299 Problem History of cerebrovascular accident with current residual effects I69.90 Active 475602778 Problem Peripheral vascular disease, unspecified I73.9 Active 956094624 Problem Rheumatoid arthritis, involving unspecified site, unspecified rheumatoid factor presence M06.9 Active 50077856 Problem Other chronic pain G89.29 Active 37183191 Problem Primary insomnia F51.01 Active 9779831 Problem Chronic obstructive pulmon disease w acute lower resp infct J44.0 Active 574169503 Problem Atrial fibrillation I48.91 Active 31704176 Problem Dysthymia F34.1 Active 27135023 Problem Osteoarthritis of foot M19.079 Active 264060513 Problem Rheumatoid arthritis M06.9 Active 59392062 Problem Tobacco abuse, 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 122893329 Problem Edema R60.9 Active 561052857 Problem COPD (chronic obstructive pulmonary disease) J44.9 Active 79187806 Problem Hypertension I10 Active 17150905 ALLERGIES No Information ENCOUNTERS Encounter Location Date Diagnosis [facility] [id number] [place] [address] 78902- 5568 Sep, Left upper quadrant pain R10.12 ; Chronic pain syndrome G89.4 ; Left lower quadrant pain R10.32 ; Other chronic pain G89.29 ; Sacrococcygeal disorders, not elsewhere classified M53.3 and Seasonal allergic rhinitis due to pollen J30.1 [facility] [id number] [place] [address] 00525- 2474 Sep, Chronic pain syndrome G89.4 [facility] [id number] [place] [address] 66340- 8965 Sep, [facility] [id number] [place] [address] 19331- 9026 Aug, Chronic pain syndrome G89.4 [facility] [id number] [place] [address] 42812- 7669 Aug, [facility] [id number] [place] [address] 88496- 6569 Aug, Insomnia, unspecified G47.00 [facility] [id number] [place] [address] 10819- 6264 Jul, [facility] [id number] [place] [address] 53739- 0586 Jul, [facility] [id number] [place] [address] 28964- 9321 Jul, Chronic pain syndrome G89.4 [facility] [id number] [place] [address] 94781- 7324 Jun, Chronic pain syndrome G89.4 [facility] [id number] [place] [address] 98828- 0082 04 Dec, 2017 Chronic pain syndrome G89.4 [facility] [id number] [place] [address] 95753- 4801 May, [facility] [id number] [place] [address] 63640- 0329 May, Shortness of breath R06.02 ; Peripheral vascular disease, unspecified I73.9 ; Pain in right knee M25.561 ; Other chronic pain G89.29 ; Chest wall pain R07.89 ; Chronic pain syndrome G89.4 ; Primary insomnia F51.01 and Ear pain, left H92.02 [facility] [id number] [place] [address] 82792- 7297 May, Anxiety F41.9 [facility] [id number] [place] [address] 66102- 2910 Apr, Pneumonia due to infectious organism, unspecified laterality , unspecified part of lung J18.9 ; Hypoxia R09.02 ; Bradycardia R00.1 ; History of Clostridium difficile Z87.19 and Primary insomnia F51.01 [facility] [id number] [place] [address] 95714- 9287 Apr, Anxiety F41.9 [facility] [id number] [place] [address] 28083- 6616 Apr, [facility] [id number] [place] [address] 92195- 7607 Mar, Anxiety F41.9 [facility] [id number] [place] [address] 79432- 5198 Feb, [facility] [id number] [place] [address] 58330- 8571 Feb, [facility] [address] 07877- 2565 Feb, Abnormal finding on urinalysis R82.90 [facility] [id number] [place] [address] 62081- 1888 Feb, [facility] [id number] [place] [address] 74901- 3962 Feb, Shortness of breath R06.02 ; Tachycardia R00.0 ; Cough R05 ; Ill feeling R68.89 and Abnormal finding on urinalysis R82.90 [facility] [id number] [place] [address] 25498- 8718 Feb, Anxiety F41.9 [facility] [id number] [place] [address] 25136 -3361 Feb, Sore throat J02.9 and Acute diffuse otitis externa of left ear H60.312 [place] [facility] [address] 60411- 4147 Jan, [facility] [id number] [place] [address] 96116- 9344 Jan, [facility] [address] [id number] Jan, [facility] [id number] [place] [address] 94708- 2862 Jan, Depression, unspecified depression type F32.9 ; Chronic bronchitis, unspecified chronic bronchitis type J42 ; Chronic pain syndrome G89.4 and Anxiety F41.9 [facility] [id number] [place] [address] 43290- 1153 Jan, [facility] [id number] [place] [address] 67973- 7567 Jan, [facility] [id number] [place] [address] 35651- 7176 Jan, [facility] [address] [id number] Jan, Chronic pain syndrome G89.4 [facility] [address] [place] [id number] Dec, History of right knee surgery Z98.890 [facility] [id number] [place] [address] 59672- 3620 Dec, [facility] [address] [address]- 5790 Dec, Chronic pain syndrome G89.4 [facility] [address] [address]- 2934 November, Anxiety F41.9 [facility] [id number] [place] [address] 95698 -6040 November, Acute cystitis without hematuria N30.00 [facility] [id number] [place] [address] 67011 -0649 November, Fever, unspecified fever cause R50.9 and Acute cystitis without hematuria N30.00 [facility] [address] [address]- 1067 November, Chronic pain syndrome G89.4 [facility] [id number] [place] [address] 37942- 4266 Oct, Anxiety F41.9 [facility] [id number] [place] [address] 86193- 2941 Oct, Chronic pain syndrome G89.4 [facility] [address] [address]- 9009 Oct, Chronic pain syndrome G89.4 [facility] [address] [address]- 8233 Oct, [facility] [address] [address]- 8575 Oct, Chronic pain syndrome G89.4 ; Pain in right knee M25.561 ; History of Clostridium difficile Z87.19 ; Iron deficiency anemia, unspecified iron deficiency anemia type D50.9 ; Peripheral vascular disease, unspecified I73.9 and Atrial fibrillation I48.91 [facility] [address] [address]- 3421 Oct, [facility] [id number] [address] 1087 Oct, Chronic pain syndrome G89.4 [facility] [address] 9153 Sep, [facility] [address] [address]- 5794 Sep, Depression, unspecified depression type F32.9 ; Chronic bronchitis, unspecified chronic bronchitis type J42 ; Chronic pain syndrome G89.4 and Anxiety F41.9 [facility] [address] [id number] Sep, History of Clostridium difficile infection Z86.19 and History of stroke Z86.73 [facility] [id number] [place] [address] [id number] Sep, Anxiety F41.9 [facility] [id number] [place] [address] 05789- 0966 Sep, Chronic pain syndrome G89.4 [facility] [address] [address]- 2021 Sep, [facility] [id number] [place] [address] [id number] Sep, [facility] [address] [address]- 5336 23 Aug, 2016 Anxiety F41.9 [facility] [id number] [place] [address] 93796- 2451 21 Aug, 2016 Anxiety F41.9 [facility] [address] [address]- 2122 16 Aug, 2016 [facility] [id number] [place] [address] 59591- 9973 14 Aug, 2016 Acute knee pain, unspecified laterality M25.569 [facility] [address] [address]- 2467 13 Aug, 2016 [facility] [address] [address]- 2250 Aug, Chronic pain syndrome G89.4 [facility] [id number] [place] [address] 21681- 3952 Aug, [facility] [id number] [place] [address] 569810- 0469 Aug, [facility] [id number] [place] [address] 25090- 7925 Jul, [facility] [id number] [place] [address] 11922- 4012 Jul, Anxiety F41.9 [facility] [id number] [place] [address] 14614- 2410 Jul, Clostridium difficile diarrhea A04.7 [facility] [address] [id number] Jul, Clostridium difficile diarrhea A04.7 ; Chronic pain syndrome G89.4 ; Chronic obstructive pulmon disease w acute lower resp infct J44.0 and Pain in right knee M25.561 [facility] [id number] [place] [address] [id number] Jul, [facility] [address] [address] -9758 Jul, Anxiety F41.9 and Chronic pain syndrome G89.4 [facility] [id number] [place] [address] 06879- 8152 Jun, Anxiety F41.9 [facility] [id number] [place] [address] 24856- 9622 Jun, Rheumatoid arthritis 714.0 [facility] [id number] [place] [address] 33015- 9216 Jun, Chronic pain syndrome G89.4 [facility] [id number] [place] [address] 56844- 3011 Jun, [facility] [id number] [address]- 9674 13 Jun, 2016 [facility] [address] [address]- 7496 12 Jun, 2016 History of pneumonia Z87.01 and History of Clostridium difficile Z87.19 [facility] [address] [address]- 6753 06 Jun, 2016 [facility] [id number] [place] [address] 26842- 4176 May, [facility] [id number] [place] [address] 31073- 9826 May, Anxiety F41.9 [facility] [id number] [place] [address] 24341- 3934 May, Chronic pain syndrome G89.4 [facility] [id number] [place] [address] 90503- 8380 May, Chronic bronchitis, unspecified chronic bronchitis type J42 [facility] [address] [address]- 9380 May, [facility] [address] [address]- 5863 May, C. difficile diarrhea A04.7 ; Peripheral edema R60.9 ; COPD (chronic obstructive pulmonary disease) J44.9 ; Rheumatoid arthritis, involving unspecified site, unspecified rheumatoid factor presence M06.9 ; Pain in right knee M25.561 ; Pain in left knee M25.562 and Other chronic pain G89.29 [facility] [address] [address]- 7553 May, [facility] [id number] [place] [address] 86896- 1375 May, [facility] [address] [address]- 8006 May, Anxiety F41.9 [facility] [id number] [address]- 2497 Apr, [facility] [address] [address]- 0658 Apr, Chronic pain syndrome G89.4 [facility] [address] [address]- 4954 Apr, Leg pain, left M79.605 [facility] [id number] [place] [address] 22119- 5127 Apr, [facility] [id number] [place] [address] 23450- 4564 Apr, [facility] [id number] [place] [address] 22953- 9008 Apr, [facility] [id number] [place] [address] 10359- 3481 Mar, Chronic pain syndrome G89.4 [facility] [address] [address]- 9317 Mar, Acute frontal sinusitis, recurrence not specified J01.10 [facility] [address] [address]- 7847 20 Mar, 2016 Iron deficiency anemia, unspecified iron deficiency anemia type D50.9 ; Rheumatoid arthritis with positive rheumatoid factor, involving unspecified site M05.9 and Depression, unspecified depression type F32.9 [facility] [address] [address]- 6784 13 Mar, 2016 Iron deficiency anemia, unspecified iron deficiency anemia type D50.9 ; Depression, unspecified depression type F32.9 and Rheumatoid arthritis with positive rheumatoid factor, involving unspecified site M05.9 [facility] [address] [address]- 1770 Mar, [facility] [address] [address]- 5483 Mar, [facility] [id number] [place] [address] 39763- 2793 Feb, Chronic pain syndrome G89.4 [facility] [id number] [place] [address] 33682- 3678 30 Feb, 2016 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 ; Status post CVA Z86.73 ; Hemiplegia G81.90 and Anemia, unspecified type D64.9 [facility] [id number] [place] [address] 79949- 4338 Feb, [facility] [id number] [place] [address] 86504- 1252 Feb, Anemia, unspecified type D64.9 [facility] [id number] [place] [address] 22739- 3755 Feb, [facility] [id number] [place] [address] 10824- 1123 Feb, Iron deficiency anemia, unspecified iron deficiency anemia type D50.9 [facility] [id number] [place] [address] 00120- 0407 Feb, [facility] [id number] [place] [address] 69946- 0743 Feb, Chronic bronchitis, unspecified chronic bronchitis type J42 [facility] [id number] [place] [address] 96926- 6168 Feb, Iron deficiency anemia, unspecified iron deficiency anemia type D50.9 [facility] [id number] [place] [address] 10816- 0528 Feb, Chronic pain syndrome G89.4 [facility] [id number] [place] [address] 13462- 0096 Feb, Anemia, unspecified type D64.9 and Hypoxia R09.02 [facility] [id number] [place] [address] 96928- 9212 Feb, Anemia, unspecified type D64.9 [facility] [address] [address]- 7272 Jan, [facility] [id number] [place] [address] 48317- 8691 Jan, Anemia, unspecified type D64.9 [facility] [address] [address]- 5459 Jan, [facility] [id number] [place] [address] 32489- 5236 Jan, Anemia, unspecified type D64.9 [facility] [id number] [place] [address] 74766- 0147 Jan, Anemia, unspecified type D64.9 [facility] [id number] [place] [address] 10898- 3515 Jan, [facility] [id number] [place] [address] 32650- 0440 Jan, Anemia, unspecified type D64.9 [facility] [address] [address]- 3479 Jan, [facility] [id number] [place] [address] 06177- 3462 Jan, [facility] [address] [address]- 7164 Jan, Chronic pain syndrome G89.4 [facility] [id number] [place] [address] 57442- 5277 Jan, Anemia, unspecified type D64.9 [facility] [address] [address]- 1997 Jan, Dysthymia F34.1 ; Cervicalgia M54.2 ; Fatigue, unspecified type R53.83 and Depression, unspecified depression type F32.9 [facility] [address] [address]- 3030 Dec, [facility] [id number] [place] [address] 92838- 5003 14 Dec, 2015 Anxiety F41.9 [facility] [address] 60574- 4285 08 Dec, 2015 Chronic pain syndrome G89.4 [facility] [address] 17055- 2802 November, [facility] [address] 79243- 8081 November, Edema R60.9 and Dizziness R42 [facility] [address] 18672- 3177 November, [facility] [address] 53391- 9811 November, [facility] [address] 18795- 0203 November, COPD (chronic obstructive pulmonary disease) J44.9 ; Increased tracheal secretions J39.8 and Edema R60.9 [facility] [address] 17660 -5423 Oct, [facility] [address] 74238 -3978 Oct, Shortness of breath R06.02 and Edema R60.9 [facility] [id number] [place] [address] 74061- 8419 Oct, Chronic bronchitis, unspecified chronic bronchitis type J42 ; Peripheral vascular disease, unspecified I73.9 ; Rheumatoid arthritis M06.9 and Atrial fibrillation I48.91 [facility] [address] 78222- 7919 Oct, [facility] [id number] [place] [address] 21861- 4936 Oct, [facility] [address] 49320- 9970 Oct, [facility] [address] [address]- 3658 Oct, [facility] [address] [address] -0777 Oct, COPD exacerbation J44.1 [facility] [address] [address]- 7341 Sep, [facility] [id number] [place] [address] 86922- 3768 Sep, [facility] [id number] [place] [address] 25100- 0492 Sep, [facility] [id number] [place] [address] 77638- 5515 Aug, [facility] [id number] [place] [address] 68909- 2274 Aug, 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 and PVD (peripheral vascular disease ) I73.9 [facility] [id number] [place] [address] 89872- 4274 Aug, Bronchitis J40 ; COPD (chronic obstructive pulmonary disease ) J44.9 and Dysthymia F34.1 [facility] [address] [address]- 6073 Aug, [facility] [id number] [place] [address] 77456- 6192 Jul, [facility] [address] [address]- 5735 Jul, [facility] [id number] [place] [address] 85141- 1631 Jul, [facility] [address] [address]- 9546 Jun, [facility] [id number] [place] [address] 57813- 5248 Jun, [facility] [address] [address] 7450 Jun, Peripheral vascular disease I73.9 [facility] [address] [address]- 6508 Jun, [facility] [address] 9571 Jun, [facility] [id number] [place] [address] 401487- 3089 Jun, Leg pain, left M79.605 ; Dysphagia, unspecified dysphagia R13.10 ; Insomnia, unspecified type G47.00 ; PVD (peripheral vascular disease) I73.9 and 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 [facility] [address] [address]- 3398 May, [facility] [id number] [place] [address] 45732- 7362 May, [facility] [address]- 5226 May, [facility] [id number] [address]- 1431 May, [facility] [address] [address]- 7736 May, [facility] [address] [address]- 0263 Apr, [facility] [address] 9043 Apr, [facility] [id number] [place] [address] 06682- 9756 Mar, [facility] [id number] [address] Mar, [facility] [address] [address] [address] Feb, [facility] [id number] [address] Feb, Nicotine abuse 305.1 ; Arthralgia 719.40 and 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 [facility] [id number] [address] Feb, [facility] [id number] [address] Jan, [facility] [id number] [address] Jan, [facility] [facility] [id number] [address] Jan, [facility] [id number] [address] Jan, [facility] [id number] [address] Jan, 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 ; Rheumatoid arthritis 714.0 ; Hypertension 401.9 ; GERD (gastroesophageal reflux disease) 530.81 ; Nicotine addiction 305.1 and Leukocytosis 288.60 [facility] [id number] [address] Jan, [facility] [id number] [address] Jan, [facility] [address] [id number] [address] 134[address] Jan, [facility] [id number] [address] Jan, [facility] [id number] [address] 3145 Jan, [facility] [address] [id number] [address] Dec, [facility] [id number] [address] Dec, [facility] [id number] [place] [address]- 7292 Dec, [facility] [address] [id number] [address] 8017 Dec, [facility] [id number] [place] [address]- 5089 November, [facility] [id number] [place] [address]- 2168 November, [facility] [id number] [place] [address]- 2178 November, Shortness of breath 786.05 [facility] [id number] [place] [address]- 7299 November, Rheumatoid arthritis 714.0 [facility] [id number] [place] [address] 77691- 2629 November, 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 [facility] [id number] [place] [address] 145078- 9897 November, Neuropathy 355.9 ; Insomnia 780.52 ; Dysthymia 300.4 ; Shortness of breath 786.05 ; Rheumatoid arthritis 714.0 and Nausea 787.02 [facility] [address] [address]- 9856 November, [facility] [id number] [address]- 6284 November, [facility] [id number] [place] [address] 87[address]- 5137 Oct, [facility] [id number] [address]- 6166 Oct, [facility] [id number] [place] [address]- 3193 Oct, [facility] [place] [facility] [address] [id number] [place] [address]- 0971 Oct, [facility] [place] [facility] [address] [id number] [place] [address]- 5633 Sep, [facility] [place] [facility] [address] [id number] [place] [address]- 0245 Sep, [facility] [place] [facility] [address] [id number] [place] [address]- 9527 Sep, [facility] [place] [facility] [address] [id number] [place] [address]- 9555 Sep, [facility] [place] [facility] [address] [id number] [place] [address]- 7914 Sep, [facility] [place] [facility] [address] [id number] [place] [address]- 2401 Sep, [facility] [place] [facility] [address] [id number] [place] [address]- 3454 Sep, [facility] [place] [facility] [address] [id number] [place] [address]- 5674 Sep, [facility] [place] [facility] [address] [id number] [place] [address]- 8868 Aug, [facility] [place] [facility] [address] [id number] [place] [address]- 8336 Aug, 2014 [facility] [place] [facility] [address] [id number] [place] [address]- 5719 Aug, 2014 [facility] [place] [facility] [address] [id number] [place] [address]- 8676 Aug, 2014 [facility] [place] [facility] [address] [id number] [place] [address]- 0981 Aug, [facility] [place] [facility] [address] [id number] [place] [address]- 7568 Aug, 2014 [facility] [place] [facility] [address] [id number] [place] [address]- 6062 Jul, [facility] [address] [id number] [place] [address]- 0450 Jul, [facility] [place] [facility] [address] [id number] [place] [address]- 4111 Jul, [facility] [address] [id number] [place] [address]- 4695 Jul, [facility] [address] [id number] [place] [address]- 9230 Jul, [facility] [address] [id number] [place] [address]- 2504 Jul, [facility] [address] [id number] [place] [address]- 1231 Jul, [facility] [address] [id number] [place] [address]- 5930 Jul, [facility] [address] [id number] [place] [address]- 1568 Jul, [facility] [address] [id number] [place] [address]- 1905 Jul, [facility] [address] [id number] [place] [address]- 7762 Jun, [facility] [place] [facility] [address] [id number] [place] [address]- 7152 Jun, [facility] [place] [facility] [address] [id number] [place] [address]- 1173 Jun, [facility] [place] [facility] [address] [id number] [place] [address]- 8311 Jun, [facility] [place] [facility] [address] [id number] [place] [address]- 8940 Jun, [facility] [place] [facility] [address] [id number] [place] 8720 Jun, [facility] [place] [facility] [address] [id number] [place] [address]- 1978 Jun, [facility] [place] [facility] [address] [id number] [place] [address]- 2125 Jun, [facility] [place] [facility] [address] [id number] [place] [address]- 6990 Jun, [facility] [place] [facility] [address] [id number] [place] [address]- 6152 Jun, [facility] [place] [facility] [address] [id number] [place] [address]- 9612 Jun, [facility] [place] [facility] [address] [id number] [place] [address]- 5343 Jun, [facility] [place] [facility] [address] [id number] [place] [address]- 9402 Jun, [facility] [place] [facility] [address] [id number] [place] [address]- 3471 Jun, [facility] [place] [facility] [address] [id number] [place] [address]- 3373 Jun, [facility] [place] [facility] [address] [id number] [place] [address]- 0846 Jun, [facility] [place] [facility] [address] [id number] [address]- 0346 May, [facility] [place] [facility] [address] [id number] [place] [address]- 9021 May, [facility] [place] [facility] [address] [id number] [place] [address]- 2829 May, [facility] [place] [facility] [address] [id number] [place] [address]- 7507 May, [facility] [place] [facility] [address] [id number] [place] [address]- 7388 May, [facility] [place] [facility] [address] [id number] [place] [address]- 7747 May, [facility] [place] [facility] [address] [id number] [place] [address]- 7869 May, [facility] [place] [facility] [address] [id number] [place] [address]- 4919 May, [facility] [place] [facility] [address] [facility] [id number] [place] [address]- 2868 May, [facility] [place] [facility] [address] [id number] [place] [address]- 2736 Apr, [facility] [place] [facility] [address] [id number] [place] [address]- 9583 Apr, [facility] [place] [facility] [address] [id number] [place] [address]- 6619 Apr, [facility] [place] [facility] [address] [facility] [id number] [place] [address]- 4473 Apr, [facility] [place] [facility] [address] [id number] [place] [address]- 7739 Apr, [facility] [place] [facility] [address] [facility] [id number] [place] [address]- 7319 Apr, [facility] [place] [facility] [address] [facility] [id number] [place] [address]- 0714 Apr, [facility] [place] [facility] [address] [id number] [place] [address]- 8224 Apr, [facility] [place] [facility] [address] [id number] [place] [address]- 3076 Apr, [facility] [place] [facility] [address] [id number] [place] [address]- 1235 Apr, [facility] [place] [facility] [address] [facility] [id number] [place] [address]- 6033 Apr, [facility] [place] [facility] [address] [facility] [id number] [place] [address]- 4101 Apr, [facility] [place] [facility] [address] [id number] [place] [address]- 4448 22 Mar, 2013 [facility] [place] [facility] [address] [id number] [place] [address]- 5356 22 Mar, 2013 [facility] [place] [facility] [address] [id number] [place] [address] 2546 Mar, 2013 [facility] [place] [facility] [address] [id number] [place] [address] 2546 Mar, 2013 [facility] [place] [facility] [address] [id number] [place] [address] 2542 Mar, 2013 [facility] [place] [facility] [address] [id number] [place] [address]- 3896 Mar, 2013 [facility] [place] [facility] [address] [id number] [place] [address]- 5168 Mar, 2013 [facility] [place] [facility] [address] [id number] [place] [address]- 8348 Mar, 2013 [facility] [place] [facility] [address] [id number] [place] [address]- 0158 Mar, 2013 [facility] [place] [facility] [address] [id number] [place] [address]- 2544 Mar, 2013 [facility] [place] [facility] [address] [id number] [place] [address]- 0169 Feb, [facility] [place] [facility] [address] [id number] [place] [address]- 7310 Feb, [facility] [place] [facility] [address] [id number] [place] [address]- 254 Feb, [facility] [place] [facility] [address] [id number] [place] [address]- 2546 Feb, [facility] [place] [facility] [address] [id number] [place] [address]- 2543 Feb, [facility] [place] [facility] [address] [id number] [place] [address]- 9503 Feb, [facility] [place] [facility] [address] [id number] [place] [address]- 0364 Feb, [facility] [place] [facility] [address] [id number] [place] [address]- 1338 Feb, [facility] [place] [facility] [address] [id number] [place] [address]- 7037 Feb, [facility] [place] [facility] [address] [id number] [place] [address]- 4325 Feb, [facility] [place] [facility] [address] [id number] [place] [address]- 7977 Feb, [facility] [place] [facility] [address] [id number] [place] [address]- 6066 Feb, [facility] [place] [facility] [address] [id number] [place] [address]- 4014 Feb, [facility] [place] [facility] [address] [id number] [place] [address]- 1140 Feb, [facility] [place] [facility] [address] [id number] [place] [address]- 3314 Feb, [facility] [place] [facility] [address] [id number] [place] [address]- 7390 Feb, [facility] [place] [facility] [address] [id number] [place] [address]- 0878 Jan, [facility] [place] [facility] [address] [id number] [place] [address]- 8792 Jan, [facility] [place] [facility] [address] [id number] [place] [address]- 7629 Jan, [facility] [place] [facility] [address] [id number] [place] [address]- 5595 Jan, [facility] [place] [facility] [address] [id number] [place] [address]- 6051 Jan, [facility] [place] [facility] [address] [id number] [place] [address]- 1359 Jan, [facility] [place] [facility] [address] [id number] [place] [address]- 0293 Dec, [facility] [place] [facility] [address] [id number] [place] [address]- 7212 Dec, [facility] [place] [facility] [address] [id number] [place] [address]- 4539 Dec, [facility] [place] [facility] [address] [id number] [place] [address]- 6331 Dec, [facility] [place] [facility] [address] [id number] [place] [address]- 3155 Dec, [facility] [place] [facility] [address] [id number] [place] [address]- 6524 Dec, [facility] [place] [facility] [address] [id number] [place] [address]- 9442 Dec, [facility] [place] [facility] [address] [id number] [place] [address]- 3748 Dec, [facility] [place] [facility] [address] [id number] [place] [address]- 9714 November, [facility] [place] [facility] [address] [id number] [place] [address]- 8605 November, [facility] [place] [facility] [address] [id number] [place] [address]- 8873 November, [facility] [place] [facility] [address] [id number] [place] [address]- 4372 November, [facility] [place] [facility] [address] [id number] [place] [address]- 8869 November, [facility] [place] [facility] [address] [id number] [place] [address]- 4509 November, [facility] [place] [facility] [address] [id number] [place] [address]- 1894 Oct, [facility] [place] [facility] [address] [id number] [place] [address]- 5844 Oct, [facility] [place] [facility] [address] [id number] [place] [address]- 1010 Oct, [facility] [place] [facility] [address] [id number] [place] [address]- 2112 Oct, [facility] [place] [facility] [address] [id number] [place] [address]- 7310 Sep, [facility] [place] [facility] [address] [id number] [place] [address]- 2302 Sep, [facility] [place] [facility] [address] [id number] [place] [address]- 2139 Sep, [facility] [place] [facility] [address] [id number] [place] [address]- 1884 Sep, [facility] [place] [facility] [address] [id number] [place] [address]- 7718 Sep, [facility] [place] [facility] [address] [id number] [place] [address]- 3475 Sep, [facility] [place] [facility] [address] [id number] [place] [address]- 3915 Aug, [facility] [place] [facility] [address] [id number] [place] [address]- 6312 Aug, [facility] [place] [facility] [address] [id number] [place] [address]- 7060 Aug, [facility] [place] [facility] [address] [id number] [place] [address]- 5084 Aug, [facility] [place] [facility] [address] [id number] [place] [address]- 4459 Aug, [facility] [place] [facility] [address] [id number] [place] [address]- 9301 Aug, [facility] [place] [facility] [address] [id number] [place] [address]- 1500 Jul, [facility] [address] [id number] [place] [address]- 1903 Jul, [facility] [place] [facility] [address] [id number] [place] [address]- 5667 Jul, [facility] [place] [facility] [address] [id number] [place] [address]- 6423 Jul, [facility] [place] [facility] [address] [id number] [place] [address]- 6342 Jul, [facility] [place] [facility] [address] [id number] [place] [address]- 2197 Jul, [facility] [place] [facility] [address] [id number] [place] [address]- 4688 Jul, [facility] [place] [facility] [address] [id number] [place] [address]- 3956 Jul, [facility] [place] [facility] [address] [id number] [place] [address]- 1721 Jul, [facility] [place] [facility] [address] [id number] [place] [address]- 0733 Jul, [facility] [place] [facility] [address] [id number] [place] [address]- 9861 Jul, [facility] [place] [facility] [address] [id number] [place] [address]- 3640 Jul, [facility] [place] [facility] [address] [id number] [place] [address]- 8289 Jul, [facility] [place] [facility] [address] [id number] [place] [address]- 5354 Jul, [facility] [place] [facility] [address] [id number] [place] [address]- 9374 Jul, [facility] [place] [facility] [address] [id number] [place] [address]- 5795 Jun, [facility] [place] [facility] [address] [id number] [place] [address]- 8255 18 Jun, 2013 [facility] [address] [id number] [place] [address]- 2326 Jun, [facility] [place] [facility] [address] [id number] [place] [address]- 1209 Jun, [facility] [place] [facility] [address] [id number] [place] [address]- 1938 May, [facility] [place] [facility] [address] [id number] [place] [address]- 5423 May, [facility] [address] [id number] [place] [address] May, [facility] [address] [id number] [place] [address]- 0937 May, [facility] [place] [facility] [address] [id number] [place] [address]- 5858 May, [facility] [address] [id number] [place] [address]- 7242 May, [facility] [address] [id number] [place] [address]- 6381 May, [facility] [address] [id number] [place] [address]- 3945 May, [facility] [place] [facility] [address] [id number] [place] [address]- 2719 16 May, 2013 [facility] [address] [id number] [id number] May, [facility] [place] [facility] [address] [id number] [place] [address]- 8852 May, [facility] [address] [id number] [place] [id number] May, [facility] [place] [facility] [address] [id number] [place] [address]- 2711 May, [facility] [address] [facility] [id number] [place] [id number] May, [facility] [address] [facility] [id number] [place] [address] May, IMMUNIZATIONS No Known Immunizations SOCIAL HISTORY Never Assessed REASON FOR VISIT Speech Therapy order Request PLAN OF CARE VITAL SIGNS MEDICATIONS Unknown [...] leukocytosis--[facility] 01/08/16 Hospitalization History pseudomemranous colitis, sepsis--[facility] 04/21/2016 Hospitalization History C Diff--[facility] 05/10/2016 Hospitalization History sepsis, pneumonia, diarrhea--[facility] 06/11/16 Hospitalization History recurrent cdiff, pneumonia-[facility] 07/22/16 Hospitalization History sepsis,pneumonia- [facility]
--- OUTSIDE RECORDS SUMMARY | 2018-03-18 20:35 | XMS REPORT ---
Author Author DAPHNE YUSUF Organization [facility] Address [address] [place] [address] Care Team Providers Care Visual Effects Artist Name Role Phone DAPHNE YUSUF Unavailable PROBLEMS Type Condition ICD9-CM Code [id number] Code Onset Dates Condition Status SNOMED Code Problem Hx of Clostridium difficile infection Z86.19 Active 233384694 Problem History of arthroplasty of right knee Z96.651 Active 457138747 Problem Dysphagia, unspecified dysphagia R13.10 Active 86840084 Problem Chronic pain syndrome G89.4 Active 393434346 Problem 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 408139019 Problem Anxiety F41.9 Active 74113073 Problem Leg pain, left M79.605 Active 905808532 Problem Depression, unspecified depression type F32.9 Active 87049042 Problem Iron deficiency anemia, unspecified iron deficiency anemia type D50.9 Active 60143456 Problem Anemia, unspecified type D64.9 Active 970439053 Problem Seasonal allergic rhinitis due to pollen J30.1 Active 91715423 Problem Insomnia, unspecified G47.00 Active 310521272 Problem 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 681375368 Problem History of cerebrovascular accident with current residual effects I69.90 Active 839577467 Problem Peripheral vascular disease, unspecified I73.9 Active 136969146 Problem Rheumatoid arthritis, involving unspecified site, unspecified rheumatoid factor presence M06.9 Active 16179067 Problem Other chronic pain G89.29 Active 85362156 Problem Primary insomnia F51.01 Active 4161491 Problem Chronic obstructive pulmon disease w acute lower resp infct J44.0 Active 000187802 Problem Atrial fibrillation I48.91 Active 12529958 Problem Dysthymia F34.1 Active 07643804 Problem Osteoarthritis of foot M19.079 Active 529258387 Problem Rheumatoid arthritis M06.9 Active 67270225 Problem Tobacco abuse, 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 938745862 Problem Edema R60.9 Active 743446066 Problem COPD (chronic obstructive pulmonary disease) J44.9 Active 45250062 Problem Hypertension I10 Active 75111582 ALLERGIES No Information ENCOUNTERS Encounter Location Date Diagnosis [facility] [id number] [place] [address] 62985- 4852 Sep, Left upper quadrant pain R10.12 ; Chronic pain syndrome G89.4 ; Left lower quadrant pain R10.32 ; Other chronic pain G89.29 ; Sacrococcygeal disorders, not elsewhere classified M53.3 and Seasonal allergic rhinitis due to pollen J30.1 [facility] [id number] [place] [address] 72986- 8573 Sep, Chronic pain syndrome G89.4 [facility] [id number] [place] [address] 11157- 8756 Sep, [facility] [id number] [place] [address] 75662- 3212 Aug, Chronic pain syndrome G89.4 [facility] [id number] [place] [address] 67664- 6049 Aug, [facility] [id number] [place] [address] 93199- 2799 Aug, Insomnia, unspecified G47.00 [facility] [id number] [place] [address] 20786- 1415 Jul, [facility] [id number] [place] [address] 44241- 4466 Jul, [facility] [id number] [place] [address] 61928- 9374 Jul, Chronic pain syndrome G89.4 [facility] [id number] [place] [address] 50802- 8445 Jun, Chronic pain syndrome G89.4 [facility] [id number] [place] [address] 00850- 6143 04 Dec, 2017 Chronic pain syndrome G89.4 [facility] [id number] [place] [address] 36237- 1181 May, [facility] [id number] [place] [address] 89077- 6763 May, Shortness of breath R06.02 ; Peripheral vascular disease, unspecified I73.9 ; Pain in right knee M25.561 ; Other chronic pain G89.29 ; Chest wall pain R07.89 ; Chronic pain syndrome G89.4 ; Primary insomnia F51.01 and Ear pain, left H92.02 [facility] [id number] [place] [address] 13155- 0237 May, Anxiety F41.9 [facility] [id number] [place] [address] 13461- 6904 Apr, Pneumonia due to infectious organism, unspecified laterality , unspecified part of lung J18.9 ; Hypoxia R09.02 ; Bradycardia R00.1 ; History of Clostridium difficile Z87.19 and Primary insomnia F51.01 [facility] [id number] [place] [address] 40839- 4041 Apr, Anxiety F41.9 [facility] [id number] [place] [address] 83747- 0215 Apr, [facility] [id number] [place] [address] 09024- 3858 Mar, Anxiety F41.9 [facility] [id number] [place] [address] 61933- 0140 Feb, [facility] [id number] [place] [address] 12560- 5651 Feb, [facility] [address] 62646- 6384 Feb, Abnormal finding on urinalysis R82.90 [facility] [id number] [place] [address] 91456- 7966 Feb, [facility] [id number] [place] [address] 13088- 0406 Feb, Shortness of breath R06.02 ; Tachycardia R00.0 ; Cough R05 ; Ill feeling R68.89 and Abnormal finding on urinalysis R82.90 [facility] [id number] [place] [address] 17645- 3934 Feb, Anxiety F41.9 [facility] [id number] [place] [address] 75956 -8821 Feb, Sore throat J02.9 and Acute diffuse otitis externa of left ear H60.312 [address] [address] 33080- 3648 Jan, [facility] [id number] [place] [address] 52817- 9517 Jan, [facility] [address] [id number] Jan, [facility] [id number] [place] [address] 35502- 7043 Jan, Depression, unspecified depression type F32.9 ; Chronic bronchitis, unspecified chronic bronchitis type J42 ; Chronic pain syndrome G89.4 and Anxiety F41.9 [facility] [id number] [place] [address] 72524- 5725 Jan, [facility] [id number] [place] [address] 81306- 7289 Jan, [facility] [id number] [place] [address] 38611- 3547 Jan, [facility] [address] [id number] Jan, Chronic pain syndrome G89.4 [facility] [address] [place] [id number] Dec, History of right knee surgery Z98.890 [facility] [id number] [place] [address] 66097- 4660 Dec, [facility] [address] [address]- 6196 Dec, Chronic pain syndrome G89.4 [facility] [address] [address]- 2076 November, Anxiety F41.9 [facility] [address] [place] [address] 32824 -6207 November, Acute cystitis without hematuria N30.00 [facility] [address] [place] [address] 77211 -1376 November, Fever, unspecified fever cause R50.9 and Acute cystitis without hematuria N30.00 [facility] [address] [address]- 7316 November, Chronic pain syndrome G89.4 [facility] [id number] [place] [address] 41782- 7944 Oct, Anxiety F41.9 [facility] [address] [place] [address] 51747- 4736 Oct, Chronic pain syndrome G89.4 [facility] [address] [address]- 5881 Oct, Chronic pain syndrome G89.4 [facility] [address] [address]- 6204 Oct, [facility] [address] [address]- 9949 Oct, Chronic pain syndrome G89.4 ; Pain in right knee M25.561 ; History of Clostridium difficile Z87.19 ; Iron deficiency anemia, unspecified iron deficiency anemia type D50.9 ; Peripheral vascular disease, unspecified I73.9 and Atrial fibrillation I48.91 [facility] [address], [place] [address]- 4421 Oct, [facility] [address] [address] 8228 Oct, Chronic pain syndrome G89.4 [facility] [address] 9469 Sep, [facility] [address] [place] [address]- 3841 Sep, Depression, unspecified depression type F32.9 ; Chronic bronchitis, unspecified chronic bronchitis type J42 ; Chronic pain syndrome G89.4 and Anxiety F41.9 [facility] [address] [place] [id number] Sep, History of Clostridium difficile infection Z86.19 and History of stroke Z86.73 [facility] [id number] [place] [address] [id number] Sep, Anxiety F41.9 [facility] [address] [place] [address] 55001- 4643 Sep, Chronic pain syndrome G89.4 [facility] [address], [place] [address]- 8827 Sep, [facility] [id number] [place] [address] [id number] Sep, [facility] [address] [address]- 6640 23 Aug, 2016 Anxiety F41.9 [facility] [address] [place] [address] 10557- 7755 21 Aug, 2016 Anxiety F41.9 [facility] [address], [place] [address]- 0403 16 Aug, 2016 [facility] [address] [place] [address] 51203- 4542 14 Aug, 2016 Acute knee pain, unspecified laterality M25.569 [facility] [address] [address]- 7384 13 Aug, 2016 [facility] [address] [address]- 1025 Aug, Chronic pain syndrome G89.4 [facility] [address] [place] [address] 61313- 5817 Aug, [facility] [address] [place] [address] 632443- 0934 Aug, [facility] [id number] [place] [address] 54218- 4896 Jul, [facility] [address] [place] [address] 26935- 8634 Jul, Anxiety F41.9 [facility] [address] [place] [address] 20861- 6281 Jul, Clostridium difficile diarrhea A04.7 [facility] [address] [place] [id number] Jul, Clostridium difficile diarrhea A04.7 ; Chronic pain syndrome G89.4 ; Chronic obstructive pulmon disease w acute lower resp infct J44.0 and Pain in right knee M25.561 [facility] [id number] [place] [address] [id number] Jul, [facility] [address] [address] -7297 Jul, Anxiety F41.9 and Chronic pain syndrome G89.4 [facility] [address] [place] [address] 94956- 0267 Jun, Anxiety F41.9 [facility] [address] [place] [address] 89424- 7608 Jun, Rheumatoid arthritis 714.0 [facility] [address] [place] [address] 22153- 7299 Jun, Chronic pain syndrome G89.4 [facility] [address] [place] [address] 65595- 4691 Jun, [facility] [address] [address]- 2325 13 Jun, 2016 [facility] [address], [place] [address]- 3588 12 Jun, 2016 History of pneumonia Z87.01 and History of Clostridium difficile Z87.19 [facility] [address] [address]- 8096 06 Jun, 2016 [facility] [address] [place] [address] 79605- 0952 May, [facility] [address] [place] [address] 90417- 2404 May, Anxiety F41.9 [facility] [address] [place] [address] 37173- 4081 May, Chronic pain syndrome G89.4 [facility] [address] [place] [address] 62400- 8793 May, Chronic bronchitis, unspecified chronic bronchitis type J42 [facility] [address] [address]- 0538 May, [facility] [address] [address]- 4154 May, C. difficile diarrhea A04.7 ; Peripheral edema R60.9 ; COPD (chronic obstructive pulmonary disease) J44.9 ; Rheumatoid arthritis, involving unspecified site, unspecified rheumatoid factor presence M06.9 ; Pain in right knee M25.561 ; Pain in left knee M25.562 and Other chronic pain G89.29 [facility] [address], [place] [address]- 4650 May, [facility] [address] [place] [address] 09932- 9664 May, [facility] [address] [address]- 1103 May, Anxiety F41.9 [facility] [address] [address]- 2376 Apr, [facility] [address], [place] [address]- 3267 Apr, Chronic pain syndrome G89.4 [facility] [address], [place] [address]- 6070 Apr, Leg pain, left M79.605 [facility] [address] [place] [address] 42349- 8488 Apr, [facility] [address] [place] [address] 31903- 7679 Apr, [facility] [address] [place] [address] 12806- 9675 Apr, [facility] [address] [place] [address] 73701- 8462 Mar, Chronic pain syndrome G89.4 [facility] [address], [place] [address]- 6776 Mar, Acute frontal sinusitis, recurrence not specified J01.10 [facility] [address], [place] [address]- 1991 20 Mar, 2016 Iron deficiency anemia, unspecified iron deficiency anemia type D50.9 ; Rheumatoid arthritis with positive rheumatoid factor, involving unspecified site M05.9 and Depression, unspecified depression type F32.9 [facility] [address], [place] [address]- 0439 13 Mar, 2016 Iron deficiency anemia, unspecified iron deficiency anemia type D50.9 ; Depression, unspecified depression type F32.9 and Rheumatoid arthritis with positive rheumatoid factor, involving unspecified site M05.9 [facility] [address], [place] [address]- 2234 Mar, [facility] [address], [place] [address]- 6889 Mar, [facility] [id number] [place] [address] 99234- 0954 Feb, Chronic pain syndrome G89.4 [facility] [id number] [place] [address] 46094- 9805 30 Feb, 2016 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 ; Status post CVA Z86.73 ; Hemiplegia G81.90 and Anemia, unspecified type D64.9 [facility] [id number] [place] [address] 49844- 0596 Feb, [facility] [id number] [place] [address] 81283- 6895 Feb, Anemia, unspecified type D64.9 [facility] [id number] [place] [address] 06977- 9830 Feb, [facility] [id number] [place] [address] 95494- 6914 Feb, Iron deficiency anemia, unspecified iron deficiency anemia type D50.9 [facility] [id number] [place] [address] 41648- 2638 Feb, [facility] [id number] [place] [address] 28714- 2822 Feb, Chronic bronchitis, unspecified chronic bronchitis type J42 [facility] [id number] [place] [address] 89309- 2337 Feb, Iron deficiency anemia, unspecified iron deficiency anemia type D50.9 [facility] [address] [place] [address] 45257- 3220 Feb, Chronic pain syndrome G89.4 [facility] [id number] [place] [address] 34716- 7731 Feb, Anemia, unspecified type D64.9 and Hypoxia R09.02 [facility] [address] [place] [address] 49419- 5266 Feb, Anemia, unspecified type D64.9 [facility] [address], [place] [address]- 0068 Jan, [facility] [id number] [place] [address] 65877- 9682 Jan, Anemia, unspecified type D64.9 [facility] [address], [place] [address]- 0811 Jan, [facility] [id number] [place] [address] 26407- 8500 Jan, Anemia, unspecified type D64.9 [facility] [address] [place] [address] 32782- 7851 Jan, Anemia, unspecified type D64.9 [facility] [address] [place] [address] 82446- 3828 Jan, [facility] [id number] [place] [address] 00743- 4729 Jan, Anemia, unspecified type D64.9 [facility] [address], [place] [address]- 2139 Jan, [facility] [address] [place] [address] 93652- 8683 Jan, [facility] [address], [place] [address]- 7421 Jan, Chronic pain syndrome G89.4 [facility] [address] [place] [address] 78022- 8405 Jan, Anemia, unspecified type D64.9 [facility] [address], [place] [address]- 5065 Jan, Dysthymia F34.1 ; Cervicalgia M54.2 ; Fatigue, unspecified type R53.83 and Depression, unspecified depression type F32.9 [facility] [address], [place] [address]- 1017 Dec, [facility] [id number] [place] [address] 17456- 7964 14 Dec, 2015 Anxiety F41.9 [facility] [address] 96447- 2494 08 Dec, 2015 Chronic pain syndrome G89.4 [facility] [address] 58119- 8883 November, [facility] [address] 64753- 7960 November, Edema R60.9 and Dizziness R42 [facility] [address] 64297- 7728 November, [facility] [address] 81587- 8771 November, [facility] [address] 84549- 6867 November, COPD (chronic obstructive pulmonary disease) J44.9 ; Increased tracheal secretions J39.8 and Edema R60.[address] [facility] [address] 51307 -3584 Oct, [facility] [address] 80270 -3033 Oct, Shortness of breath R06.02 and Edema R60.9 [facility] [id number] [place] [address] 72347- 8295 Oct, Chronic bronchitis, unspecified chronic bronchitis type J42 ; Peripheral vascular disease, unspecified I73.9 ; Rheumatoid arthritis M06.9 and Atrial fibrillation I48.91 [facility] [address] 23053- 8064 Oct, [facility] [id number] [place] [address] 34900- 5840 Oct, [facility] [address] 74142- 5975 Oct, [facility] [address], [place] [address]- 7987 Oct, [facility] [address], [place] [address] -2990 Oct, COPD exacerbation J44.1 [facility] [address], [place] [address]- 2942 Sep, [facility] [id number] [place] [address] 50724- 1156 Sep, [facility] [id number] [place] [address] 29556- 1518 Sep, [facility] [id number] [place] [address] 54967- 8332 Aug, [facility] [id number] [place] [address] 39787- 4867 Aug, 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 and PVD (peripheral vascular disease ) I73.9 [facility] [id number] [place] [address] 36841- 8622 Aug, Bronchitis J40 ; COPD (chronic obstructive pulmonary disease ) J44.9 and Dysthymia F34.1 [facility] [address], [place] [address]- 1778 Aug, [facility] [address] [place] [address] 37096- 3939 Jul, [facility] [address], [place] [address]- 5992 Jul, [facility] [id number] [place] [address] 41666- 8719 Jul, [facility] [address], [place] [address]- 9965 Jun, [facility] [id number] [place] [address] 49510- 5445 Jun, [facility] [address] 9589 Jun, Peripheral vascular disease I73.9 [facility] [address], [place] [address]- 1696 Jun, [facility] [address] 9253 Jun, [facility] [id number] [place] [address] 937653- 0039 Jun, Leg pain, left M79.605 ; Dysphagia, unspecified dysphagia R13.10 ; Insomnia, unspecified type G47.00 ; PVD (peripheral vascular disease) I73.9 and 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 [facility] [address] [place] [address]- 6063 May, [facility] [id number] [place] [address] 83396- 6381 May, [facility] [address] 7403 May, [facility] [address] [address]- 2227 May, [facility] [address], [place] [address]- 0452 May, [facility] [address] [address] 8787 Apr, [facility] [address]- 7202 Apr, [facility] [id number] [place] [id number] Mar, [facility] [id number] [address] Mar, [facility] [address] [address] [address] Feb, [facility] [id number] [address] Feb, Nicotine abuse 305.1 ; Arthralgia 719.40 and 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 [facility] [id number] [address] Feb, [facility] [id number] [address] Jan, [facility] [id number] [address] Jan, [facility] [id number] [address] Jan, [facility] [id number] [address] Jan, [facility] [address] [id number] [address] Jan, 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 ; Rheumatoid arthritis 714.0 ; Hypertension 401.9 ; GERD (gastroesophageal reflux disease) 530.81 ; Nicotine addiction 305.1 and Leukocytosis 288.60 [facility] [address], [place] [address] Jan, [facility] [address] [address] Jan, [facility] [id number], [place] [address] Jan, [facility] [address] [address] Jan, [facility] [id number] [address] Jan, [facility] [address] [id number] [address] Dec, [facility] [address] [address] Dec, [facility] [id number] [place] [address]- 6462 Dec, [facility] [id number] [address] 92[address] Dec, [facility] [id number] [place] [address]- 1995 November, [facility] [id number] [place] [address]- 1249 November, [facility] [id number] [place] [address]- 2030 November, Shortness of breath 786.05 [facility] [id number] [place] [address]- 8612 November, Rheumatoid arthritis 714.0 [facility] [id number] [place] [address] 48[address]- 8849 November, 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 [facility] [id number] [place] [address] 768591- 8602 November, Neuropathy 355.9 ; Insomnia 780.52 ; Dysthymia 300.4 ; Shortness of breath 786.05 ; Rheumatoid arthritis 714.0 and Nausea 787.02 [facility] [address] [address] November, [facility] [address] [address] 68[address] November, [facility] [id number] [place] [address] 90642- 4606 Oct, [facility] [address] [address]- 1226 Oct, [facility] [id number] [place] [address]- 2964 Oct, [facility] [place] [facility] [address] [id number] [place] [address]- 1741 Oct, [facility] [place] [facility] [address] [id number] [place] [address]- 9492 Sep, [facility] [place] [facility] [address] [id number] [place] [address]- 6237 Sep, [facility] [place] [facility] [address] [id number] [place] [address]- 4521 Sep, [facility] [place] [facility] [address] [id number] [place] [address]- 7083 Sep, [facility] [place] [facility] [address] [id number] [place] [address]- 4569 Sep, [facility] [place] [facility] [address] [id number] [place] [address]- 5883 Sep, [facility] [place] [facility] [address] [id number] [place] [address]- 3022 Sep, [facility] [place] [facility] [address] [id number] [place] [address]- 9548 Sep, [facility] [place] [facility] [address] [id number] [place] [address]- 5366 Aug, [facility] [place] [facility] [address] [id number] [address] 6[address] Aug, 2014 [facility] [place] [facility] [address] [id number], [place] [address]- 3123 Aug, 2014 [facility] [place] [facility] [address] [id number] [place] [address]- 8487 Aug, 2014 [facility] [place] [facility] [address] [id number] [place] [address]- 2142 Aug, [facility] [place] [facility] [address] [id number] [place] [address]- 5957 Aug, 2014 [facility] [place] [facility] [address] [id number] [place] [address]- 6031 Jul, [facility] [address] [id number] [place] [address]- 9465 Jul, [facility] [place] [facility] [address] [id number] [place] [address]- 1502 Jul, [facility] [address] [id number] [place] [address]- 1679 Jul, [facility] [address] [id number] [place] [address]- 5185 Jul, [facility] [address] [id number] [place] [address]- 1657 Jul, [facility] [address] [id number] [place] [address]- 2291 Jul, [facility] [address] [id number] [place] [address]- 0215 Jul, [facility] [address] [id number] [place] [address]- 7483 Jul, [facility] [address] [id number] [place] [address]- 3752 Jul, [facility] [address] [id number] [place] [address]- 6786 Jun, [facility] [place] [facility] [address] [id number] [place] [address]- 0143 Jun, [facility] [place] [facility] [address] [id number] [place] [address]- 9424 Jun, [facility] [place] [facility] [address] [id number] [place] [address]- 2209 Jun, [facility] [place] [facility] [address] [id number] [place] [address]- 3076 Jun, [facility] [place] [facility] [address] [id number] [place] 4512 Jun, [facility] [place] [facility] [address] [id number] [place] [address]- 1986 Jun, [facility] [place] [facility] [address] [id number] [place] [address]- 1050 Jun, [facility] [place] [facility] [address] [id number] [place] [address]- 0498 Jun, [facility] [place] [facility] [address] [id number] [place] [address]- 8474 Jun, [facility] [place] [facility] [address] [id number] [place] [address]- 8123 Jun, [facility] [place] [facility] [address] [id number] [place] [address]- 0243 Jun, [facility] [place] [facility] [address] [id number] [place] [address]- 0757 Jun, [facility] [place] [facility] [address] [id number] [place] [address]- 9958 Jun, [facility] [place] [facility] [address] [id number] [place] [address]- 5062 Jun, [facility] [place] [facility] [address] [id number] [place] [address]- 7211 Jun, [facility] [place] [facility] [address] [id number] [address]- 7101 May, [facility] [place] [facility] [address] [id number] [address]- 4024 May, [facility] [place] [facility] [address] [id number] [place] [address]- 4252 May, [facility] [place] [facility] [address] [id number] [place] [address]- 0219 May, [facility] [place] [facility] [address] [id number] [place] [address]- 2283 May, [facility] [place] [facility] [address] [id number] [address]- 7473 May, [facility] [place] [facility] [address] [id number] [place] [address]- 9808 May, [facility] [place] [facility] [address] [id number] [address]- 6045 May, [facility] [place] [facility] [address] [facility] [id number] [place] [address]- 8474 May, [facility] [place] [facility] [address] [id number], [place] [address]- 6628 Apr, [facility] [place] [facility] [address] [id number] [place] [address]- 3939 Apr, [facility] [place] [facility] [address] [id number], [place] [address]- 3543 Apr, [facility] [place] [facility] [address] [facility] [id number], [place] [address]- 8447 Apr, [facility] [place] [facility] [address] [id number], [place] [address]- 7010 Apr, [facility] [place] [facility] [address] [facility] [id number], [place] [address]- 9427 Apr, [facility] [place] [facility] [address] [facility] [id number], [place] [address]- 2694 Apr, [facility] [place] [facility] [address] [id number], [place] [address]- 5576 Apr, [facility] [place] [facility] [address] [id number], [place] [address]- 3217 Apr, [facility] [place] [facility] [address] [id number], [place] [address]- 0801 Apr, [facility] [place] [facility] [address] [facility] [id number], [place] [address]- 5697 Apr, [facility] [place] [facility] [address] [facility] [id number], [place] [address]- 5025 Apr, [facility] [place] [facility] [address] [id number] [place] [address]- 2306 22 Mar, 2013 [facility] [place] [facility] [address] [id number] [place] [address]- 6506 22 Mar, 2013 [facility] [place] [facility] [address] [id number] [place] [address] 2546 Mar, 2013 [facility] [place] [facility] [address] [id number] [place] [address] 2546 Mar, 2013 [facility] [place] [facility] [address] [id number] [place] [address] 2548 Mar, 2013 [facility] [place] [facility] [address] [id number] [place] [address]- 0336 Mar, 2013 [facility] [place] [facility] [address] [id number] [place] [address]- 4660 Mar, 2013 [facility] [place] [facility] [address] [id number] [place] [address]- 4315 Mar, 2013 [facility] [place] [facility] [address] [id number] [place] [address]- 6618 Mar, 2013 [facility] [place] [facility] [address] [id number] [place] [address]- 2540 Mar, 2013 [facility] [place] [facility] [address] [id number] [place] [address]- 9381 Feb, [facility] [place] [facility] [address] [id number] [place] [address]- 3662 Feb, [facility] [place] [facility] [address] [id number] [place] [address]- 2545 Feb, [facility] [place] [facility] [address] [id number] [place] [address]- 2546 Feb, [facility] [place] [facility] [address] [id number] [place] [address]- 2548 Feb, [facility] [place] [facility] [address] [id number] [place] [address]- 1538 Feb, [facility] [place] [facility] [address] [id number] [place] [address]- 0878 Feb, [facility] [place] [facility] [address] [id number] [place] [address]- 3149 Feb, [facility] [place] [facility] [address] [id number] [place] [address]- 4501 Feb, [facility] [place] [facility] [address] [id number] [place] [address]- 6825 Feb, [facility] [place] [facility] [address] [id number] [place] [address]- 6144 Feb, [facility] [place] [facility] [address] [id number] [place] [address]- 6824 Feb, [facility] [place] [facility] [address] [id number] [place] [address]- 0702 Feb, [facility] [place] [facility] [address] [id number] [place] [address]- 2542 Feb, [facility] [place] [facility] [address] [id number] [place] [address]- 0222 Feb, [facility] [place] [facility] [address] [id number] [place] [address]- 6055 Feb, [facility] [place] [facility] [address] [id number] [place] [address]- 4189 Jan, [facility] [place] [facility] [address] [id number] [place] [address]- 9799 Jan, [facility] [place] [facility] [address] [id number] [place] [address]- 2725 Jan, [facility] [place] [facility] [address] [id number] [place] [address]- 6397 Jan, [facility] [place] [facility] [address] [id number] [place] [address]- 4948 Jan, [facility] [place] [facility] [address] [id number] [place] [address]- 3825 Jan, [facility] [place] [facility] [address] [id number] [place] [address]- 2647 Dec, [facility] [place] [facility] [address] [id number] [place] [address]- 0203 Dec, [facility] [place] [facility] [address] [id number] [place] [address]- 4039 Dec, [facility] [place] [facility] [address] [id number] [place] [address]- 8198 Dec, [facility] [place] [facility] [address] [id number] [place] [address]- 0929 Dec, [facility] [place] [facility] [address] [id number] [place] [address]- 4931 Dec, [facility] [place] [facility] [address] [id number] [place] [address]- 9826 Dec, [facility] [place] [facility] [address] [id number] [place] [address]- 7141 Dec, [facility] [place] [facility] [address] [id number] [place] [address]- 5247 November, [facility] [place] [facility] [address] [id number] [place] [address]- 0795 November, [facility] [place] [facility] [address] [id number] [place] [address]- 7561 November, [facility] [place] [facility] [address] [id number] [place] [address]- 9671 November, [facility] [place] [facility] [address] [id number] [place] [address]- 9932 November, [facility] [place] [facility] [address] [id number] [place] [address]- 6010 November, [facility] [place] [facility] [address] [id number] [place] [address]- 8490 Oct, [facility] [place] [facility] [address] [id number] [place] [address]- 2305 Oct, [facility] [place] [facility] [address] [id number] [place] [address]- 2553 Oct, [facility] [place] [facility] [address] [id number] [place] [address]- 6014 Oct, [facility] [place] [facility] [address] [id number] [place] [address]- 9389 Sep, [facility] [place] [facility] [address] [id number] [place] [address]- 4268 Sep, [facility] [place] [facility] [address] [id number] [place] [address]- 6923 Sep, [facility] [place] [facility] [address] [id number] [place] [address]- 0002 Sep, [facility] [place] [facility] [address] [id number] [place] [address]- 2453 Sep, [facility] [place] [facility] [address] [id number] [place] [address]- 7976 Sep, [facility] [place] [facility] [address] [id number] [place] [address]- 1127 Aug, [facility] [place] [facility] [address] [id number] [place] [address]- 7229 Aug, [facility] [place] [facility] [address] [id number] [place] [address]- 7668 Aug, [facility] [place] [facility] [address] [id number] [place] [address]- 7118 Aug, [facility] [place] [facility] [address] [id number] [place] [address]- 6548 Aug, [facility] [place] [facility] [address] [id number] [place] [address]- 3878 Aug, [facility] [place] [facility] [address] [id number] [place] [address]- 6382 Jul, [facility] [address] [id number] [place] [address]- 2372 Jul, [facility] [place] [facility] [address] [id number] [place] [address]- 9349 Jul, [facility] [place] [facility] [address] [id number] [place] [address]- 9948 Jul, [facility] [place] [facility] [address] [id number] [place] [address]- 4079 Jul, [facility] [place] [facility] [address] [id number] [place] [address]- 8410 Jul, [facility] [place] [facility] [address] [id number] [place] [address]- 4985 Jul, [facility] [place] [facility] [address] [id number] [place] [address]- 4912 Jul, [facility] [place] [facility] [address] [id number] [place] [address]- 5384 Jul, [facility] [place] [facility] [address] [id number] [place] [address]- 2186 Jul, [facility] [place] [facility] [address] [id number] [place] [address]- 8914 Jul, [facility] [place] [facility] [address] [id number] [place] [address]- 7722 Jul, [facility] [place] [facility] [address] [id number] [place] [address]- 6283 Jul, [facility] [place] [facility] [address] [id number] [place] [address]- 3867 Jul, [facility] [place] [facility] [address] [id number] [place] [address]- 1633 Jul, [facility] [place] [facility] [address] [id number] [place] [address]- 1521 Jun, [facility] [place] [facility] [address] [id number] [place] [address]- 0862 18 Jun, 2013 [facility] [address] [id number] [place] [address]- 5426 Jun, [facility] [place] [facility] [address] [id number] [place] [address]- 3555 Jun, [facility] [place] [facility] [address] [id number] [place] [address]- 4194 May, [facility] [place] [facility] [address] [id number] [place] [address]- 3447 May, [facility] [address] [id number] [place] [id number] May, [facility] [address] [id number] [place] [address]- 5749 May, [facility] [place] [facility] [address] [id number] [place] [address]- 7749 May, [facility] [address] [id number] [place] [address]- 4960 May, [facility] [address] [id number] [place] [address]- 5879 May, [facility] [address] [id number] [place] [address]- 0003 May, [facility] [place] [facility] [address] [id number][place] [address]- 3140 16 May, 2013 [facility] [address] [id number][place] [id number] May, [facility] [place] [facility] [address] [id number], [place] [address]- 1177 May, [facility] [address] [id number] [place] [id number] May, [facility] [place] [facility] [address] [id number], [place] [address]- 7364 May, [facility] [address] [facility] [id number] [place] [id number] May, [facility] [address] [facility] [id number] [place] [address]- 5967 May, IMMUNIZATIONS No Known Immunizations SOCIAL HISTORY Never Assessed REASON FOR VISIT Refill request PLAN OF CARE VITAL SIGNS MEDICATIONS Medication Instructions Dosage Frequency Start Date End Date Duration Status Doxepin HCl 25 MG Orally Once a day 1 capsule at bedtime 24h 30 days Active Spiriva Respimat 2.5 MCG/ACT Inhalation Once a day 1 puff 24h 20 Oct, 2015 30 days Active Pravastatin Sodium 10 mg Orally Once a day 1 tablet 24h 30 days Active Gabapentin 300 MG Orally 3 times a day 2 capsules 8h 30 days Active Zoloft 50 mg Orally Once a day 1 tablet 24h 13 Mar, 2016 30 days Active Xanax 0.5 MG Orally Once a day 1 tablet at bedtime 24h 06 Jan, 2015 28 days Active Nexium 40 MG Orally Once a day 1 capsule 24h 30 Active Symbicort 160-4.5 MCG/ACT Inhalation Twice a day 2 puffs 12h Oct, 30 days Active Oxycodone-Acetaminophen 5-325 MG Orally 3 times a day 1 tablet 8h 18 Jan, 2017 21 days Active Verapamil HCl ER 120 MG Orally Once a day 1 tablet in the morning with food 24h 90 Active RESULTS No Results PROCEDURES No Known [...] leukocytosis--tank [facility] 01/08/16 Hospitalization History pseudomemranous colitis, sepsis--[facility] 04/21/2016 Hospitalization History C Diff--[facility] 05/10/2016 Hospitalization History sepsis, pneumonia, diarrhea--[facility] 06/11/16 Hospitalization History recurrent cdiff, pneumonia-[facility] 07/22/16 Hospitalization History sepsis,pneumonia- [facility]
--- OUTSIDE RECORDS SUMMARY | 2018-03-18 20:35 | XMS REPORT ---
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 740273916 Problem Leg pain, left M79.605 Active 434247736 Problem Edema R60.9 Active 474179004 Problem Anxiety F41.9 Active 10085993 Problem Chronic pain syndrome G89.4 Active 487384824 Problem Chronic obstructive pulmon disease w acute lower resp infct J44.0 Active Problem Other chronic pain G89.29 Active 34288884 Problem PVD (peripheral vascular disease) I73.9 Active 535661660 Problem Insomnia, unspecified type G47.00 Active 103567060 Problem Dysphagia, unspecified dysphagia R13.10 Active 59939605 Problem Anemia, unspecified type D64.9 Active 718685659 Problem Depression, unspecified depression type F32.9 Active 07550871 Problem Rheumatoid arthritis, involving unspecified site, unspecified rheumatoid factor presence M06.9 Active 90723266 Problem Iron deficiency anemia, unspecified iron deficiency anemia type D50.9 Active 95571717 Problem 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 909831405 Problem Osteoarthritis of foot M19.079 Active 765034189 Problem Peripheral vascular disease, unspecified I73.9 Active 756801702 Problem History of cerebrovascular accident with current residual effects I69.90 Active 202313021 Problem Rheumatoid arthritis M06.9 Active 31036438 Problem Atrial fibrillation I48.91 Active 85938029 Problem Hypertension I10 Active 47155654 Problem COPD (chronic obstructive pulmonary disease) J44.9 Active 79655848 ALLERGIES No Information SOCIAL HISTORY Never Assessed [...] leukocytosis--[facility] 01/08/16 Hospitalization History pseudomemranous colitis, sepsis--[facility] 04/21/2016 Hospitalization History C Diff--[facility] 05/10/2016 Hospitalization History sepsis, pneumonia, diarrhea--[facility] 06/11/16 Hospitalization History recurrent cdiff, pneumonia-[facility] 07/22/16
--- OUTSIDE RECORDS SUMMARY | 2018-03-18 20:35 | XMS REPORT ---
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 125732861 Problem Chronic pain syndrome G89.4 Active 913089200 Problem Depression, unspecified depression type F32.9 Active 13524727 Problem Anxiety F41.9 Active 03281326 Problem Primary insomnia F51.01 Active 4024766 Problem Chronic obstructive pulmon disease w acute lower resp infct J44.0 Active Problem Peripheral vascular disease, unspecified I73.9 Active 935649775 Problem Dysphagia, unspecified dysphagia R13.10 Active 43525846 Problem Leg pain, left M79.605 Active 987291653 Problem Iron deficiency anemia, unspecified iron deficiency anemia type D50.9 Active 84433127 Problem Anemia, unspecified type D64.9 Active 853626141 Problem Other chronic pain G89.29 Active 69519013 Problem Rheumatoid arthritis, involving unspecified site, unspecified rheumatoid factor presence M06.9 Active 42455324 Problem 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 070428280 Problem Osteoarthritis of foot M19.079 Active 438288555 Problem History of cerebrovascular accident with current residual effects I69.90 Active 870296924 Problem Hypertension I10 Active 60562947 Problem Dysthymia F34.1 Active 94946132 Problem COPD (chronic obstructive pulmonary disease) J44.9 Active 31968064 Problem Rheumatoid arthritis M06.9 Active 45503799 Problem Atrial fibrillation I48.91 Active 08799612 ALLERGIES No Information SOCIAL HISTORY Never Assessed PLAN OF CARE VITAL SIGNS MEDICATIONS Medication Instructions Dosage Frequency Start Date End Date Duration Status Hydrocodone-Acetaminophen 10-325 MG Orally 3 times a day 1 tablet as needed 8h Dec, 28 days Active RESULTS No Results PROCEDURES [...] [facility] 01/08/16 Hospitalization History pseudomemranous colitis, sepsis--[facility] 04/21/2016 Hospitalization History C Diff--[facility] 05/10/2016 Hospitalization History sepsis, pneumonia, diarrhea--[facility] 06/11/16 Hospitalization History recurrent cdiff, pneumonia-[facility] 07/22/16 Hospitalization History sepsis,pneumonia- [facility]
--- OUTSIDE RECORDS SUMMARY | 2018-03-18 20:37 | XMS REPORT ---
Author Author DAPHNE YUSUF Organization [facility] Address [address] [place] [address] Care Team Providers Care It Systems Administrator Name Role Phone DAPHNE YUSUF Unavailable PROBLEMS Type Condition ICD9-CM Code CEF05-SZ Code Onset Dates Condition Status SNOMED Code Problem Hx of Clostridium difficile infection Z86.19 Active 267765969 Problem History of arthroplasty of right knee Z96.651 Active 898900310 Problem Dysphagia, unspecified dysphagia R13.10 Active 05603283 Problem Chronic pain syndrome G89.4 Active 976750447 Problem 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 971350601 Problem Anxiety F41.9 Active 58223067 Problem Leg pain, left M79.605 Active 829175808 Problem Depression, unspecified depression type F32.9 Active 77611488 Problem Iron deficiency anemia, unspecified iron deficiency anemia type D50.9 Active 95010881 Problem Anemia, unspecified type D64.9 Active 757991055 Problem Seasonal allergic rhinitis due to pollen J30.1 Active 27516952 Problem Insomnia, unspecified G47.00 Active 567798433 Problem 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 126020706 Problem History of cerebrovascular accident with current residual effects I69.90 Active 956329760 Problem Peripheral vascular disease, unspecified I73.9 Active 646389130 Problem Rheumatoid arthritis, involving unspecified site, unspecified rheumatoid factor presence M06.9 Active 43906883 Problem Other chronic pain G89.29 Active 88958232 Problem Primary insomnia F51.01 Active 1327042 Problem Chronic obstructive pulmon disease w acute lower resp infct J44.0 Active 384096121 Problem Atrial fibrillation I48.91 Active 94094436 Problem Dysthymia F34.1 Active 00681918 Problem Osteoarthritis of foot M19.079 Active 267432883 Problem Rheumatoid arthritis M06.9 Active 99974173 Problem Tobacco abuse, 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 185260475 Problem Edema R60.9 Active 457378788 Problem COPD (chronic obstructive pulmonary disease) J44.9 Active 61245241 Problem Hypertension I10 Active 68440490 ALLERGIES No Information ENCOUNTERS Encounter Location Date Diagnosis [facility] [id number] [place] [address] 50063- 8360 November, Chronic pain syndrome G89.4 [facility] [address] 16925- 5803 November, [facility] [address] 91243- 9973 Oct, Chronic pain syndrome G89.4 [facility] [address] 57802- 4696 Oct, [facility] [address] 50955- 1973 Oct, Chronic pain syndrome G89.4 [facility] [address] 94423- 1692 Oct, [facility] [address] 40505- 1839 Oct, [facility] [id number] [place] [address] 37423- 9089 Sep, Left upper quadrant pain R10.12 ; Chronic pain syndrome G89.4 ; Left lower quadrant pain R10.32 ; Other chronic pain G89.29 ; Sacrococcygeal disorders, not elsewhere classified M53.3 and Seasonal allergic rhinitis due to pollen J30.1 [facility] [id number] [place] [address] 98204- 9775 Sep, Chronic pain syndrome G89.4 [facility] [address] 81866- 7865 Sep, [facility] [id number] [place] [address] 80314- 3780 Aug, Chronic pain syndrome G89.4 [facility] [id number] [address] Aug, [facility] [id number] [place] [address] 44102- 6346 Aug, Insomnia, unspecified G47.00 [facility] [id number] [place] [address] 65228- 4281 Jul, [facility] [id number] [place] [address] 54329- 7691 Jul, [facility] [id number] [place] [address] 07802- 8789 Jul, Chronic pain syndrome G89.4 [facility] [id number] [place] [address] 27064- 5832 Jun, Chronic pain syndrome G89.4 [facility] [id number] [place] [address] 21539- 5100 Jun, Chronic pain syndrome G89.4 [facility] [id number] [place] [address] 26789- 6316 May, [facility] [id number] [place] [address] 25596- 2415 May, Shortness of breath R06.02 ; Peripheral vascular disease, unspecified I73.9 ; Pain in right knee M25.561 ; Other chronic pain G89.29 ; Chest wall pain R07.89 ; Chronic pain syndrome G89.4 ; Primary insomnia F51.01 and Ear pain, left H92.02 [facility] [id number] [place] [address] 82807- 6481 06 May, 2017 Anxiety F41.9 [facility] [id number] [place] [address] 67406- 3197 09 Apr, 2017 Pneumonia due to infectious organism, unspecified laterality , unspecified part of lung J18.9 ; Hypoxia R09.02 ; Bradycardia R00.1 ; History of Clostridium difficile Z87.19 and Primary insomnia F51.01 [facility] [id number] [place] [address] 51874- 0684 Apr, Anxiety F41.9 [facility] [address] 66852- 5705 Apr, [facility] [id number] [place] [address] 26365- 1808 Mar, Anxiety F41.9 [facility] [address] 11373- 7177 Feb, [facility] [address] 90320- 3615 Feb, [facility] [address] 81146- 8356 Feb, Abnormal finding on urinalysis R82.90 [facility] [address] 20924- 5724 Feb, [facility] [address] 23262- 5641 Feb, Shortness of breath R06.02 ; Tachycardia R00.0 ; Cough R05 ; Ill feeling R68.89 and Abnormal finding on urinalysis R82.90 [facility] [id number] [place] [address] 11926- 2601 Feb, Anxiety F41.9 [facility] [id number] [place] [address] 27986 -5254 Feb, Sore throat J02.9 and Acute diffuse otitis externa of left ear H60.312 [facility] [address] 23538- 8229 Jan, [facility] [address] 61145- 7515 Jan, [facility] [address] [id number] Jan, [facility] [id number] [place] [address] 79286- 8223 17 Jan, 2017 Depression, unspecified depression type F32.9 ; Chronic bronchitis, unspecified chronic bronchitis type J42 ; Chronic pain syndrome G89.4 and Anxiety F41.9 [facility] [id number] [address]- 2674 14 Jan, 2017 [facility] [id number] [place] [address] 23817- 8302 Jan, [facility] [id number] [place] [address] 30435- 8050 Jan, [facility] [id number] [place] [address] [id number] Jan, Chronic pain syndrome G89.4 [facility] [address] [place] [id number] Dec, History of right knee surgery Z98.890 [facility] [id number] [place] [address] 69386- 3346 Dec, [facility] [id number] [place] [address] 69432- 5367 Dec, Chronic pain syndrome G89.4 [facility] [id number] [place] [address] 41092- 3159 November, Anxiety F41.9 [facility] [id number] [place] [address] 36784 -4119 November, Acute cystitis without hematuria N30.00 [facility] [id number] [place] [address] 91672 -3199 November, Fever, unspecified fever cause R50.9 and Acute cystitis without hematuria N30.00 [facility] [id number] [place] [address] 87653- 1723 November, Chronic pain syndrome G89.4 [facility] [id number] [place] [address] 95232- 7704 Oct, Anxiety F41.9 [facility] [id number] [address]- 5532 Oct, Chronic pain syndrome G89.4 [facility] [id number] [place] [address] 11725- 0688 Oct, Chronic pain syndrome G89.4 [facility] [id number] [place] [address] 65621- 7625 Oct, [facility] [id number] [place] [address] 11801- 3596 Oct, Chronic pain syndrome G89.4 ; Pain in right knee M25.561 ; History of Clostridium difficile Z87.19 ; Iron deficiency anemia, unspecified iron deficiency anemia type D50.9 ; Peripheral vascular disease, unspecified I73.9 and Atrial fibrillation I48.91 [facility] [id number] [place] [address] 85548- 7272 Oct, [facility] [id number] [place] [address] 52966- 5133 Oct, Chronic pain syndrome G89.4 [facility] [id number] [place] [address] 90992- 2721 Sep, [facility] [id number] [place] [address] 95715- 9916 Sep, Depression, unspecified depression type F32.9 ; Chronic bronchitis, unspecified chronic bronchitis type J42 ; Chronic pain syndrome G89.4 and Anxiety F41.9 [facility] [address] [id number] Sep, History of Clostridium difficile infection Z86.19 and History of stroke Z86.73 [facility] [id number] [place] [address] [id number] Sep, Anxiety F41.9 [facility] [id number] [place] [address] 71464- 6752 Sep, Chronic pain syndrome G89.4 [facility] [id number] [place] [address] 42142- 5265 Sep, [facility] [id number] [place] [address] [id number] Sep, [facility] [id number] [place] [address] 60552- 7472 Aug, Anxiety F41.9 [facility] [id number] [place] [address] 59737- 1899 Aug, Anxiety F41.9 [facility] [id number] [place] [address] 52588- 8525 Aug, [facility] [id number] [place] [address] 04476- 3020 14 Aug, 2016 Acute knee pain, unspecified laterality M25.569 [facility] [id number] [place] [address] 18994- 4391 Aug, [facility] [id number] [place] [address] 37038- 6502 Aug, Chronic pain syndrome G89.4 [facility] [id number] [place] [address] 53489- 2372 Aug, [facility] [id number] [place] [address] 73316- 6034 Aug, [facility] [id number] [place] [address] 99858- 7033 Jul, [facility] [id number] [place] [address] 37236- 1626 Jul, Anxiety F41.9 [facility] [id number] [place] [address] 93033- 2850 Jul, Clostridium difficile diarrhea A04.7 [facility] [address] [id number] Jul, Clostridium difficile diarrhea A04.7 ; Chronic pain syndrome G89.4 ; Chronic obstructive pulmon disease w acute lower resp infct J44.0 and Pain in right knee M25.561 [facility] [id number] [place] [address] [id number] Jul, [facility] [id number] [place] [address] 53159 -9989 Jul, Anxiety F41.9 and Chronic pain syndrome G89.4 [facility] [id number] [place] [address] 11949- 0623 Jun, Anxiety F41.9 [facility] [id number] [place] [address] 91689- 4442 Jun, Rheumatoid arthritis 714.0 [facility] [id number] [place] [address] 58717- 0766 Jun, Chronic pain syndrome G89.4 [facility] [id number] [place] [address] 85678- 9169 Jun, [facility] [id number] [place] [address] 72404- 5111 Jun, [facility] [id number] [place] [address] 94092- 2513 Jun, History of pneumonia Z87.01 and History of Clostridium difficile Z87.19 [facility] [id number] [place] [address] 47870- 9789 Jun, [facility] [id number] [place] [address] 72031- 8284 May, [facility] [id number] [place] [address] 69535 2543 May, Anxiety F41.9 [facility] [id number] [place] [address] 68788- 2678 May, Chronic pain syndrome G89.4 [facility] [id number] [place] [address] 22834- 4050 May, Chronic bronchitis, unspecified chronic bronchitis type J42 [facility] [id number] [address]- 7658 May, [facility] [id number] [place] [address] 64812- 7312 May, C. difficile diarrhea A04.7 ; Peripheral edema R60.9 ; COPD (chronic obstructive pulmonary disease) J44.9 ; Rheumatoid arthritis, involving unspecified site, unspecified rheumatoid factor presence M06.9 ; Pain in right knee M25.561 ; Pain in left knee M25.562 and Other chronic pain G89.29 [facility] [id number] [place] [address] 55679- 3672 May, [facility] [id number] [place] [address] 53076- 6201 May, [facility] [id number] [place] [address] 73370- 4174 May, Anxiety F41.9 [facility] [id number] [place] [address] 53137- 7860 Apr, [facility] [id number] [place] [address] 96957- 0281 Apr, Chronic pain syndrome G89.4 [facility] [id number] [place] [address] 62174- 0027 Apr, Leg pain, left M79.605 [facility] [id number] [place] [address] 75242- 1508 Apr, [facility] [id number] [place] [address] 20690- 2044 Apr, [facility] [id number] [place] [address] 35942- 0280 Apr, [facility] [id number] [address]- 9039 Mar, Chronic pain syndrome G89.4 [facility] [id number] [place] [address] 42513- 0714 Mar, Acute frontal sinusitis, recurrence not specified J01.10 [facility] [id number] [place] [address] 11707- 5624 Mar, Iron deficiency anemia, unspecified iron deficiency anemia type D50.9 ; Rheumatoid arthritis with positive rheumatoid factor, involving unspecified site M05.9 and Depression, unspecified depression type F32.9 [facility] [id number] [place] [address] 59955- 1608 Mar, Iron deficiency anemia, unspecified iron deficiency anemia type D50.9 ; Depression, unspecified depression type F32.9 and Rheumatoid arthritis with positive rheumatoid factor, involving unspecified site M05.9 [facility] [id number] [place] [address] 56006- 1672 Mar, [facility] [id number] [place] [address] 98884- 4789 Mar, [facility] [id number] [place] [address] 01723- 4967 Feb, Chronic pain syndrome G89.4 [facility] [id number] [place] [address] 97391- 2042 30 Feb, 2016 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 ; Status post CVA Z86.73 ; Hemiplegia G81.90 and Anemia, unspecified type D64.9 [facility] [id number] [place] [address] 33026- 9084 Feb, [facility] [id number] [place] [address] 67642- 5827 Feb, Anemia, unspecified type D64.9 [facility] [id number] [place] [address] 75004- 0148 Feb, [facility] [id number] [place] [address] 10915- 5392 Feb, Iron deficiency anemia, unspecified iron deficiency anemia type D50.9 [facility] [id number] [address]- 7542 Feb, [facility] [id number] [place] [address] 31822- 9125 Feb, Chronic bronchitis, unspecified chronic bronchitis type J42 [facility] [id number] [place] [address] 46890- 8153 Feb, Iron deficiency anemia, unspecified iron deficiency anemia type D50.9 [facility] [id number] [place] [address] 26907- 6186 Feb, Chronic pain syndrome G89.4 [facility] [id number] [place] [address] 58617- 6094 Feb, Anemia, unspecified type D64.9 and Hypoxia R09.02 [facility] [id number] [place] [address] 54749- 9325 Feb, Anemia, unspecified type D64.9 [facility] [id number] [address]- 2287 Jan, [facility] [id number] [place] [address] 36669- 2060 Jan, Anemia, unspecified type D64.9 [facility] [id number] [address]- 9035 Jan, [facility] [id number] [place] [address] 34766- 3461 Jan, Anemia, unspecified type D64.9 [facility] [id number] [address]- 6811 Jan, Anemia, unspecified type D64.9 [facility] [id number] [address]- 7367 Jan, [facility] [id number] [address]- 4609 Jan, Anemia, unspecified type D64.9 [facility] [id number] [place] [address] 40356- 2061 Jan, [facility] [id number] [place] [address] 81882- 4592 Jan, [facility] [id number] [place] [address] 52859- 1192 Jan, Chronic pain syndrome G89.4 [facility] [id number] [place] [address] 63555- 3378 Jan, Anemia, unspecified type D64.9 [facility] [id number] [place] [address] 00877- 9437 Jan, Dysthymia F34.1 ; Cervicalgia M54.2 ; Fatigue, unspecified type R53.83 and Depression, unspecified depression type F32.9 [facility] [id number] [place] [address] 53984- 8922 Dec, [facility] [id number] [place] [address] 95807- 5243 Dec, Anxiety F41.9 [facility] [address] 02010- 8098 Dec, Chronic pain syndrome G89.4 [facility] [id number] [place] [address] 94397- 8265 November, [facility] [id number] [place] [address] 62811- 6892 November, Edema R60.9 and Dizziness R42 [facility] [id number] [place] [address] 10002- 4616 November, [facility] [id number] [place] [address] 39253- 4721 November, [facility] [id number] [place] [address] 06022- 7519 November, COPD (chronic obstructive pulmonary disease) J44.9 ; Increased tracheal secretions J39.8 and Edema R60.9 [facility] [id number] [place] [address] 12472 -3611 29 Oct, 2015 [facility] [id number] [place] [address] 34699 -0190 28 Oct, 2015 Shortness of breath R06.02 and Edema R60.9 [facility] [address] 21262- 1828 20 Oct, 2015 Chronic bronchitis, unspecified chronic bronchitis type J42 ; Peripheral vascular disease, unspecified I73.9 ; Rheumatoid arthritis M06.9 and Atrial fibrillation I48.91 [facility] [address] 56514- 8656 Oct, [facility] [id number] [place] [address] 52383- 9507 Oct, [facility] [id number] [place] [address] 93913- 6579 Oct, [facility] [id number] [place] [address] 38295- 5683 Oct, [facility] [id number] [place] [address] 85460 -5590 Oct, COPD exacerbation J44.1 [facility] [id number] [place] [address] 86193- 0395 Sep, [facility] [id number] [place] [address] 72309- 5658 Sep, [facility] [id number] [place] [address] 17162- 9325 16 Sep, 2015 [facility] [id number] [place] [address] 70488- 5795 17 Aug, 2015 [facility] [id number] [place] [address] 94078- 8142 16 Aug, 2015 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 and PVD (peripheral vascular disease ) I73.9 [facility] [id number] [place] [address] 21222- 2234 Aug, Bronchitis J40 ; COPD (chronic obstructive pulmonary disease ) J44.9 and Dysthymia F34.1 [facility] [id number] [place] [address] 35530- 7636 Aug, [facility] [address] 42561- 6236 Jul, [facility] [id number] [place] [address] 89108- 1600 Jul, [facility] [id number] [place] [address] 43862- 0024 Jul, [facility] [id number] [place] [address] 70023- 1796 Jun, [facility] [id number] [place] [address] 23712- 2065 Jun, [facility] [id number] [place] [address] 16887- 6581 Jun, Peripheral vascular disease I73.9 [facility] [id number] [place] [address] 51245- 1865 Jun, [facility] [id number] [place] [address] 20271- 5041 Jun, [facility] [id number] [place] [address] 61088- 2545 Jun, Leg pain, left M79.605 ; Dysphagia, unspecified dysphagia R13.10 ; Insomnia, unspecified type G47.00 ; PVD (peripheral vascular disease) I73.9 and 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 [facility] [id number] [place] [address] 49549- 0260 May, [facility] [address] [address]- 6456 May, [facility] [id number] [place] [address] May, [facility] [id number] [place] [address] 93249- 3476 May, [facility] [id number] [address] May, [facility] [address] [facility] [id number] [place] [address] 08360- 3869 Apr, [facility] [id number] [place] [address] 60915- 6628 Apr, [facility] [id number] [place] [address] 93185- 9169 Mar, [facility] [id number] [place] [address] 84232- 7417 Mar, [facility] [id number] [place] [address] 99859- 4806 Feb, [facility] [id number] [place] [address] 61751- 8809 Feb, Nicotine abuse 305.1 ; Arthralgia 719.40 and 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 [facility] [address] [id number] [address] Feb, [facility] [id number] [address] 3[address] Jan, [facility] [id number] [address] 3665 Jan, [facility] [id number] [address] 6887 Jan, [facility] [id number] [address] Jan, [facility] [id number] [place] [address] 89170- 8645 Jan, 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 ; Rheumatoid arthritis 714.0 ; Hypertension 401.9 ; GERD (gastroesophageal reflux disease) 530.81 ; Nicotine addiction 305.1 and Leukocytosis 288.60 [facility] [id number] [address] 2365 Jan, 2014 [facility] [id number] [place] [address] 63259- 0752 Jan, 2014 [facility] [id number] [place] [address] 61739- 9644 Jan, [facility] [id number] [place] [address] 56171- 1803 Jan, [facility] [id number] [place] [address] 85595- 8660 Jan, [facility] [id number] [place] [address] 02443- 0618 Dec, [facility] [id number] [place] [address] 20572- 8034 Dec, [facility] [id number] [place] [address] 21497- 8901 Dec, [facility] [id number] [place] [address] 85209- 6166 Dec, [facility] [id number] [place] [address] 62388- 4625 November, [facility] [id number] [address]- 1845 November, [facility] [id number] [place] [address] 00703- 9657 November, Shortness of breath 786.05 [facility] [id number] [address]- 6209 November, Rheumatoid arthritis 714.0 [facility] [id number] [place] [address] 74181- 4179 November, 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 [facility] [id number] [place] [address] 13045- 6543 November, Neuropathy 355.9 ; Insomnia 780.52 ; Dysthymia 300.4 ; Shortness of breath 786.05 ; Rheumatoid arthritis 714.0 and Nausea 787.02 [facility] [id number] [place] [address] 17049- 6516 November, [facility] [id number] [place] [address] 71777- 3296 November, [facility] [id number] [place] [address] 045133- 3474 Oct, [facility] [id number] [place] [address] 64926- 4601 Oct, [facility] [id number] [place] [address] 25431- 8036 Oct, [facility] [id number] [place] [address] 45120- 5352 Oct, [facility] [id number] [place] [address] [id number]- 9281 Sep, [facility] [id number] 1238 Sep, [facility] [id number] [address]- 0989 Sep, [facility] [id number] [address]- 8345 Sep, [facility] [id number] [place] [address] 03826- 3575 Sep, [facility] [id number], [place] [address]- 0866 Sep, [facility] [id number] [place] [address] 60857- 6931 Sep, [facility] [place] [facility] [address] [id number] [place] [address]- 6036 Sep, [facility] [place] [facility] [address] [id number] [place] [address]- 6231 Aug, [facility] [place] [facility] [address] [id number] [place] [address]- 4519 Aug, [facility] [place] [facility] [address] [id number] [place] [address]- 8751 Aug, [facility] [place] [facility] [address] [id number] [place] [address]- 5201 Aug, [facility] [place] [facility] [address] [id number] [place] [address]- 4640 Aug, [facility] [place] [facility] [address] [id number] [place] [address]- 1207 Aug, [facility] [place] [facility] [address] [id number] [place] [address]- 1908 Jul, [facility] [place] [facility] [address] [id number] [place] [address]- 5042 Jul, [facility] [place] [facility] [address] [id number] [place] [address]- 5695 Jul, [facility] [place] [facility] [address] [id number] [place] [address]- 7217 Jul, [facility] [place] [facility] [address] [id number] [place] [address]- 2375 Jul, [facility] [place] [facility] [address] [id number] [place] [address]- 5529 Jul, [facility] [place] [facility] [address] [id number] [place] [address]- 9548 Jul, [facility] [place] [facility] [address] [id number] [place] [address]- 3780 Jul, [facility] [place] [facility] [address] [id number] [place] [address]- 6460 Jul, [facility] [address] [id number] [place] [address]- 1437 Jul, [facility] [place] [facility] [address] [id number] [place] [address]- 6762 Jun, [facility] [place] [facility] [address] [id number] [place] [address]- 9542 Jun, [facility] [place] [facility] [address] [id number] [place] [address]- 7114 Jun, [facility] [address] [id number] [place] [address]- 7276 Jun, [facility] [address] [id number] [place] [address]- 6672 Jun, [facility] [address] [id number] [place] [address]- 2632 Jun, [facility] [address] [id number] [place] [address]- 6269 Jun, [facility] [place] [facility] [address] [id number] [place] [address]- 6260 Jun, [facility] [address] [id number] [place] [address]- 0862 Jun, [facility] [place] [facility] [address] [id number] [place] [address]- 4725 Jun, [facility] [place] [facility] [address] [id number] [place] [address]- 5866 Jun, [facility] [place] [facility] [address] [id number] [place] [address]- 2848 Jun, [facility] [place] [facility] [address] [id number] [place] [address]- 3916 Jun, [facility] [place] [facility] [address] [id number] [place] [address]- 9322 Jun, [facility] [place] [facility] [address] [id number] [place] [address]- 4545 Jun, [facility] [place] [facility] [address] [id number] [place] [address]- 9596 Jun, [facility] [place] [facility] [address] [id number] [place] [address]- 2277 May, [facility] [place] [facility] [address] [id number] [place] [address]- 8143 May, [facility] [place] [facility] [address] [id number] [place] [address]- 7830 May, [facility] [place] [facility] [address] [id number] [place] [address]- 2562 May, [facility] [place] [facility] [address] [id number] [place] [address]- 8388 May, [facility] [place] [facility] [address] [id number] [place] [address]- 4737 May, [facility] [place] [facility] [address] [id number] [place] [address]- 7071 May, [facility] [place] [facility] [address] [id number] [place] [address]- 3080 May, [facility] [place] [facility] [address] [id number] [place] [address]- 4111 May, [facility] [place] [facility] [address] [id number] [address]- 3554 Apr, [facility] [place] [facility] [address] [id number] [place] [address]- 3336 Apr, [facility] [place] [facility] [address] [id number] [place] [address]- 7981 Apr, [facility] [place] [facility] [address] [id number] [place] [address]- 0859 Apr, [facility] [place] [facility] [address] [id number] [place] [address]- 6483 Apr, [facility] [place] [facility] [address] [id number] [place] [address]- 5553 10 Apr, 2014 [facility] [place] [facility] [address] [id number] [place] [address]- 1941 Apr, [facility] [place] [facility] [address] [id number] [place] [address]- 9954 Apr, [facility] [place] [facility] [address] [id number] [place] [address]- 7792 Apr, [facility] [place] [facility] [address] [id number] [place] [address]- 2850 Apr, [facility] [place] [facility] [address] [id number] [place] [address]- 2065 Apr, [facility] [place] [facility] [address] [id number] [place] [address]- 4042 Apr, [facility] [place] [facility] [address] [id number] [place] [address]- 9178 22 Mar, 2013 [facility] [place] [facility] [address] [id number] [place] [address]- 5997 22 Mar, 2013 [facility] [place] [facility] [address] [id number] [place] [address]- 1736 19 Mar, 2013 [facility] [place] [facility] [address] [id number] [place] [address]- 8179 19 Mar, 2013 [facility] [place] [facility] [address] [id number] [address]- 5229 11 Mar, 2013 [facility] [place] [facility] [address] [id number] [place] [address]- 9187 11 Mar, 2013 [facility] [place] [facility] [address] [id number], [place] [address]- 4505 11 Mar, 2013 [facility] [place] [facility] [address] [id number], [place] [address]- 5065 11 Mar, 2013 [facility] [place] [facility] [address] [id number] [place] [address]- 4940 Mar, [facility] [place] [facility] [address] [id number] [place] [address]- 3587 Mar, [facility] [place] [facility] [address] [id number] [place] [address]- 7193 Feb, [facility] [place] [facility] [address] [id number] [place] [address]- 5774 Feb, [facility] [place] [facility] [address] [id number] [place] [address]- 2135 Feb, [facility] [place] [facility] [address] [id number] [place] [address]- 6461 Feb, [facility] [place] [facility] [address] [id number] [place] [address]- 0281 Feb, [facility] [place] [facility] [address] [id number] [place] [address]- 8407 Feb, [facility] [place] [facility] [address] [id number] [place] [address]- 7600 Feb, [facility] [place] [facility] [address] [id number] [place] [address]- 6081 Feb, [facility] [place] [facility] [address] [id number] [place] [address]- 9335 Feb, [facility] [place] [facility] [address] [id number] [place] [address]- 4367 Feb, [facility] [place] [facility] [address] [id number] [place] [address]- 9921 Feb, [facility] [place] [facility] [address] [id number] [place] [address]- 3013 Feb, [facility] [place] [facility] [address] [id number] [place] [address]- 3929 Feb, [facility] [place] [facility] [address] [id number] [place] [address]- 7816 Feb, [facility] [place] [facility] [address] [id number] [place] [address]- 2615 Feb, [facility] [place] [facility] [address] [id number] [place] [address]- 0843 Feb, [facility] [place] [facility] [address] [id number] [place] [address]- 2907 Jan, [facility] [place] [facility] [address] [id number] [place] [address]- 3929 Jan, [facility] [place] [facility] [address] [id number] [place] [address]- 0864 Jan, [facility] [place] [facility] [address] [id number] [place] [address]- 4743 Jan, [facility] [place] [facility] [address] [id number] [place] [address]- 7492 Jan, [facility] [place] [facility] [address] [id number] [place] [address]- 0043 Jan, [facility] [place] [facility] [address] [id number] [place] [address]- 6633 Dec, [facility] [place] [facility] [address] [id number] [place] [address]- 1720 Dec, [facility] [place] [facility] [address] [id number] [place] [address]- 2494 Dec, [facility] [place] [facility] [address] [id number] [address]- 1876 Dec, [facility] [place] [facility] [address] [id number] [place] [address]- 4121 Dec, [facility] [place] [facility] [address] [id number] [place] [address]- 7138 Dec, [facility] [place] [facility] [address] [id number] [place] [address]- 0308 Dec, [facility] [place] [facility] [address] [id number] [place] [address]- 7375 Dec, [facility] [place] [facility] [address] [id number] [place] [address]- 8684 November, [facility] [place] [facility] [address] [id number] [place] [address]- 0510 November, [facility] [place] [facility] [address] [id number] [place] [address]- 9315 November, [facility] [place] [facility] [address] [id number] [place] [address]- 6845 November, [facility] [place] [facility] [address] [id number] [place] [address]- 1400 November, [facility] [place] [facility] [address] [id number] [place] [address]- 9818 November, [facility] [place] [facility] [address] [id number] [place] [address]- 0316 Oct, [facility] [place] [facility] [address] [id number] [place] [address]- 5862 Oct, [facility] [place] [facility] [address] [id number] [place] [address]- 9098 Oct, [facility] [place] [facility] [address] [id number] [place] [address]- 4085 Oct, [facility] [place] [facility] [address] [id number] [place] [address]- 4659 Sep, [facility] [place] [facility] [address] [id number] [place] [address]- 7813 Sep, [facility] [place] [facility] [address] [id number] [place] [address]- 5887 Sep, [facility] [place] [facility] [address] [id number] [place] [address]- 1698 Sep, [facility] [place] [facility] [address] [id number] [place] [address]- 4426 Sep, [facility] [place] [facility] [address] [id number] [place] [address]- 2743 Sep, [facility] [place] [facility] [address] [id number] [place] [address]- 1245 Aug, [facility] [place] [facility] [address] [id number] [place] [address]- 6109 Aug, [facility] [place] [facility] [address] [id number] [place] [address]- 2055 Aug, [facility] [place] [facility] [address] [id number] [place] [address]- 5976 Aug, [facility] [place] [facility] [address] [id number] [place] [address]- 8510 Aug, [facility] [place] [facility] [address] [id number] [place] [address]- 3979 Aug, [facility] [place] [facility] [address] [id number] [place] [address]- 9551 Jul, [facility] [place] [facility] [address] [id number] [place] [address]- 2495 Jul, [facility] [place] [facility] [address] [id number] [place] [address]- 0293 Jul, [facility] [place] [facility] [address] [id number] [place] [address]- 0677 Jul, [facility] [place] [facility] [address] [id number] [place] [address]- 5836 Jul, [facility] [place] [facility] [address] [id number] [place] [address]- 1548 Jul, [facility] [place] [facility] [address] [id number] [place] [address]- 4550 Jul, [facility] [place] [facility] [address] [id number] [place] [address]- 6284 Jul, [facility] [place] [facility] [address] [id number] [place] [address]- 2460 Jul, [facility] [place] [facility] [address] [id number] [place] [address]- 1094 Jul, [facility] [place] [facility] [address] [id number] [place] [address]- 3670 Jul, [facility] [place] [facility] [address] [id number] [place] [address]- 8132 Jul, [facility] [place] [facility] [address] [id number] [place] [address]- 1402 Jul, [facility] [place] [facility] [address] [id number] [place] [address]- 3013 Jul, [facility] [place] [facility] [address] [id number] [place] [address]- 2443 Jul, [facility] [place] [facility] [address] [id number] [place] [address]- 0148 Jun, [facility] [place] [facility] [address] [id number] [place] [address]- 3458 Jun, [facility] [place] [facility] [address] [id number] [place] [address]- 2004 Jun, [facility] [place] [facility] [address] [facility] [id number] [place] [address]- 4698 Jun, [facility] [place] [facility] [address] [id number] [place] [address]- 4084 May, [facility] [place] [facility] [address] [id number] [place] [address]- 4567 May, [facility] [address] [id number] [place] [id number] May, [facility] [place] [facility] [address] [id number] [place] [address]- 1955 May, [facility] [place] [facility] [address] [id number] [place] [address]- 0383 May, [facility] [place] [facility] [id number] [address]- 6416 May, [facility] [id number] [address]- 2623 May, [facility] [id number] [address]- 6286 May, [facility] [id number] [address]- 2516 May, [facility] [address] [id number] May, [facility] [id number] [address]- 7926 May, [facility] [address] [id number] May, [facility] [id number] [address]- 8626 May, [facility] [address] [id number] May, [facility] [id number] [address]- 3798 May, IMMUNIZATIONS No Known Immunizations SOCIAL HISTORY Never Assessed REASON FOR VISIT Controlled Med Refill 07/14/17 PLAN OF CARE VITAL SIGNS MEDICATIONS Medication Instructions Dosage Frequency Start Date End Date Duration Status Oxycodone-Acetaminophen 5-325 MG Orally 2 times a day 1 tablet 12h Jun, 28 days Active RESULTS No Results PROCEDURES [...] Diarrhea, leukocytosis--[facility] 01/08/16 Hospitalization History pseudomemranous colitis, sepsis--[facility] 04/21/2016 Hospitalization History C Diff--[facility] 05/10/2016 Hospitalization History sepsis, pneumonia, diarrhea--[facility] 06/11/16 Hospitalization History recurrent cdiff, pneumonia-[facility] 07/22/16 Hospitalization History sepsis,pneumonia- [facility]
--- OUTSIDE RECORDS SUMMARY | 2018-03-18 20:41 | XMS REPORT ---
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 697604542 Problem Edema R60.9 Active 483353637 Problem Leg pain, left M79.605 Active 584206327 Problem Chronic pain syndrome G89.4 Active 003961385 Problem Depression, unspecified depression type F32.9 Active 72430375 Problem Anxiety F41.9 Active 88692361 Problem Primary insomnia F51.01 Active 3238351 Problem Chronic obstructive pulmon disease w acute lower resp infct J44.0 Active Problem Peripheral vascular disease, unspecified I73.9 Active 119832570 Problem PVD (peripheral vascular disease) I73.9 Active 192438742 Problem Dysphagia, unspecified dysphagia R13.10 Active 74170458 Problem Iron deficiency anemia, unspecified iron deficiency anemia type D50.9 Active 28667423 Problem Anemia, unspecified type D64.9 Active 620815138 Problem Other chronic pain G89.29 Active 10837091 Problem Rheumatoid arthritis, involving unspecified site, unspecified rheumatoid factor presence M06.9 Active 54262909 Problem 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 Diff Drug Allergy November, Active SOCIAL HISTORY Never Assessed PLAN OF CARE Activity Details Follow Up prn Reason: VITAL SIGNS Height 63 in 2016-11-20 Temperature 98.6 degrees Fahrenheit 2016-11-20 Heart Rate 82 bpm 2016-11-20 Respiratory Rate 20 2016-11-20 Blood pressure systolic 120 mmHg 2016-11-20 Blood pressure diastolic 56 mmHg 2016-11-20 MEDICATIONS Medication Instructions Dosage Frequency Start Date End Date Duration Status Symbicort 160-4.5 MCG/ACT Inhalation Twice a day 2 puffs 12h Oct, Active Oxygen 2 L/NC by inhalation route all day and nite ... Feb, Active Pravastatin Sodium 10 mg Orally Once a day 1 tablet 24h 30 days Active Zoloft 50 mg Orally Once a day 1 tablet 24h Mar, 30 days Active Aspirin EC 81 MG Orally Once a day 1 tablet 24h 30 Active Verapamil HCl CR 120 MG Orally Once a day 1 tablet in the morning with food 24h 90 Active Doxepin HCl 25 MG Orally Once a day 1 capsule at bedtime 24h 30 days Active Probiotic - Active Bactrim DS 800-160 MG Orally Twice a day 1 tablet 12h November,November 5 days Active Cetirizine HCl 10 MG Orally Once a day 1 tablet 24h Active Hydrocodone-Acetaminophen 10-325 MG Orally 3 times a day 1 tablet as needed 8h November, 28 days Active Ranitidine HCl 150 MG Orally 2 times a day 1 tablet 12h 30 days Active Nexium 24HR 20 MG Orally Once a day 1 capsule 24h Active Voltaren 1 % Transdermal 2 times a day 4 gm 12h 12 Oct, 2016 Feb, 30 days Active Albuterol Sulfate (2.5 MG/3ML) 0.083% Inhalation every 6 hrs 3 ml 6h 30 days Active Gabapentin 300 MG Orally 3 times a day 2 capsules 8h 30 days Active Cholecalciferol 1000 UNIT Orally Once a day 1 capsule 24h Active Spiriva Respimat 2.5 MCG/ACT Inhalation Once a day 1 puff 24h 20 Oct, 2015 30 days Active Nexium 40 MG Orally Once a day 1 capsule 24h 30 Active Vitamin C 500 MG Orally twice a day 1 tablet 12h Feb, 30 day(s ) Active Multi Adult Gummies - Active Montelukast Sodium 10 mg Orally Once a day at HS 1 tablet in the evening Active Xanax 0.5 MG Orally Once a day 1 tablet at bedtime 24h Jan, 28 days Active RESULTS Name Result Date Reference Range UA LONG DIP (IN HOUSE) 2016-11-20 Lot # [id number] Exp date 2017-11-09 Clarity cloudy Color dark yellow Odor strong GLU negative DARCIE negative KET negative SG 1.025 BLO negative pH 6.0 Protein negative URO 1.0 NIT negative MANASA 1+ Lot # [id number] Exp date 2017-08 CULTURE, URINE 2016-11-20 Urine Culture, Routine Final report Result 1 Antimicrobial Susceptibility PROCEDURES Procedure Date Ordered Result Body Site URINALYSIS, AUTO, W/O SCOPE November 20, 2016 LAB NOT BILLED BY [facility] November 20, 2016 FQ VISIT ESTABLISHED PATIENT November 20, 2016 IMMUNIZATIONS No Known Immunizations MEDICAL (GENERAL) [...] Diarrhea, leukocytosis--[facility] 01/08/16 Hospitalization History pseudomemranous colitis, sepsis--[facility] 04/21/2016 Hospitalization History C Diff--[facility] 05/10/2016 Hospitalization History sepsis, pneumonia, diarrhea--[facility] 06/11/16 Hospitalization History recurrent cdiff, pneumonia-[facility] 07/22/16 Hospitalization History sepsis,pneumonia- [facility]
--- OUTSIDE RECORDS SUMMARY | 2018-03-18 20:42 | XMS REPORT ---
Author Author DAPHNE YUSUF Organization [facility] Address [address] [place] [address] Care Team Providers Care Manufacturing Design Engineer Name Role Phone DAPHNE YUSUF Unavailable PROBLEMS Type Condition ICD9-CM Code XCT38-ED Code Onset Dates Condition Status SNOMED Code Problem Hx of Clostridium difficile infection Z86.19 Active 366001019 Problem History of arthroplasty of right knee Z96.651 Active 659757944 Problem Dysphagia, unspecified dysphagia R13.10 Active 07143333 Problem Chronic pain syndrome G89.4 Active 261074289 Problem 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 342928843 Problem Anxiety F41.9 Active 48782180 Problem Leg pain, left M79.605 Active 363658073 Problem Depression, unspecified depression type F32.9 Active 17487828 Problem Iron deficiency anemia, unspecified iron deficiency anemia type D50.9 Active 83194942 Problem Anemia, unspecified type D64.9 Active 691354029 Problem Seasonal allergic rhinitis due to pollen J30.1 Active 20350089 Problem Insomnia, unspecified G47.00 Active 221278061 Problem 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 900893234 Problem History of cerebrovascular accident with current residual effects I69.90 Active 714177352 Problem Peripheral vascular disease, unspecified I73.9 Active 572775012 Problem Rheumatoid arthritis, involving unspecified site, unspecified rheumatoid factor presence M06.9 Active 84255573 Problem Other chronic pain G89.29 Active 65634351 Problem Primary insomnia F51.01 Active 4880291 Problem Chronic obstructive pulmon disease w acute lower resp infct J44.0 Active 375226002 Problem Atrial fibrillation I48.91 Active 46469220 Problem Dysthymia F34.1 Active 33026766 Problem Osteoarthritis of foot M19.079 Active 238580157 Problem Rheumatoid arthritis M06.9 Active 69142743 Problem Tobacco abuse, 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 957023905 Problem Edema R60.9 Active 659293290 Problem COPD (chronic obstructive pulmonary disease) J44.9 Active 05158307 Problem Hypertension I10 Active 84138140 ALLERGIES No Information ENCOUNTERS Encounter Location Date Diagnosis [facility] [id number] [place] [address] 58410- 2855 November, Chronic pain syndrome G89.4 [facility] [address] 60433- 0986 November, [facility] [address] 09599- 4571 Oct, Chronic pain syndrome G89.4 [facility] [address] 15795- 1962 Oct, [facility] [address] 42002- 5606 Oct, Chronic pain syndrome G89.4 [facility] [address] 84847- 9462 Oct, [facility] [address] 73448- 3168 Oct, [facility] [id number] [place] [address] 74932- 8528 Sep, Left upper quadrant pain R10.12 ; Chronic pain syndrome G89.4 ; Left lower quadrant pain R10.32 ; Other chronic pain G89.29 ; Sacrococcygeal disorders, not elsewhere classified M53.3 and Seasonal allergic rhinitis due to pollen J30.1 [facility] [id number] [place] [address] 85026- 9344 Sep, Chronic pain syndrome G89.4 [facility] [address] 69449- 6511 Sep, [facility] [id number] [place] [address] 42479- 5249 Aug, Chronic pain syndrome G89.4 [facility] [address] [address] 4597 Aug, [facility] [id number] [place] [address] 69780- 2945 Aug, Insomnia, unspecified G47.00 [facility] [address] [place] [address] 15564- 9250 Jul, [facility] [id number] [place] [address] 52632- 0063 Jul, [facility] [id number] [place] [address] 84900- 8925 Jul, Chronic pain syndrome G89.4 [facility] [id number] [place] [address] 58412- 1491 Jun, Chronic pain syndrome G89.4 [facility] [id number] [place] [address] 75849- 4191 Jun, Chronic pain syndrome G89.4 [facility] [id number] [place] [address] 97409- 9873 May, [facility] [id number] [place] [address] 97576- 3354 May, Shortness of breath R06.02 ; Peripheral vascular disease, unspecified I73.9 ; Pain in right knee M25.561 ; Other chronic pain G89.29 ; Chest wall pain R07.89 ; Chronic pain syndrome G89.4 ; Primary insomnia F51.01 and Ear pain, left H92.02 [facility] [address] [place] [address] 89049- 2878 06 May, 2017 Anxiety F41.9 [facility] [id number] [place] [address] 11327- 5829 09 Apr, 2017 Pneumonia due to infectious organism, unspecified laterality , unspecified part of lung J18.9 ; Hypoxia R09.02 ; Bradycardia R00.1 ; History of Clostridium difficile Z87.19 and Primary insomnia F51.01 [facility] [id number] [place] [address] 52047- 4016 Apr, Anxiety F41.9 [facility] [address] 68137- 1747 Apr, [facility] [id number] [place] [address] 53446- 8965 Mar, Anxiety F41.9 [facility] [address] 08311- 7654 Feb, [facility] [address] 66704- 5967 Feb, [facility] [address] 90756- 8088 Feb, Abnormal finding on urinalysis R82.90 [facility] [address] 09620- 6378 Feb, [facility] [address] 63536- 5095 Feb, Shortness of breath R06.02 ; Tachycardia R00.0 ; Cough R05 ; Ill feeling R68.89 and Abnormal finding on urinalysis R82.90 [facility] [id number] [place] [address] 73954- 8391 Feb, Anxiety F41.9 [facility] [id number] [place] [address] 66412 -7732 Feb, Sore throat J02.9 and Acute diffuse otitis externa of left ear H60.312 [facility] [address] 62412- 0205 Jan, [facility] [address] 15581- 0548 Jan, [facility] [address] [id number] Jan, [facility] [address] [place] [address] 85857- 1215 17 Jan, 2017 Depression, unspecified depression type F32.9 ; Chronic bronchitis, unspecified chronic bronchitis type J42 ; Chronic pain syndrome G89.4 and Anxiety F41.9 [facility] [address] [address]- 7759 14 Jan, 2017 [facility] [id number] [place] [address] 10345- 2277 Jan, [facility] [address] [place] [address] 80897- 4736 Jan, [facility] [id number] [place] [address] [id number] Jan, Chronic pain syndrome G89.4 [facility] [address] [place] [id number] Dec, History of right knee surgery Z98.890 [facility] [address] [place] [address] 73307- 7760 Dec, [facility] [address] [place] [address] 40605- 7994 Dec, Chronic pain syndrome G89.4 [facility] [address] [place] [address] 94233- 4802 November, Anxiety F41.9 [facility] [address] [place] [address] 25734 -4831 November, Acute cystitis without hematuria N30.00 [facility] [address] [place] [address] 89532 -7146 November, Fever, unspecified fever cause R50.9 and Acute cystitis without hematuria N30.00 [facility] [address] [place] [address] 91449- 4766 November, Chronic pain syndrome G89.4 [facility] [address] [place] [address] 94564- 7086 Oct, Anxiety F41.9 [facility] [address] [address]- 3756 Oct, Chronic pain syndrome G89.4 [facility] [address] [place] [address] 67465- 1301 Oct, Chronic pain syndrome G89.4 [facility] [address] [place] [address] 28197- 0779 Oct, [facility] [id number] [place] [address] 39273- 2858 Oct, Chronic pain syndrome G89.4 ; Pain in right knee M25.561 ; History of Clostridium difficile Z87.19 ; Iron deficiency anemia, unspecified iron deficiency anemia type D50.9 ; Peripheral vascular disease, unspecified I73.9 and Atrial fibrillation I48.91 [facility] [address] [place] [address] 25714- 9135 Oct, [facility] [address] [place] [address] 07107- 0396 Oct, Chronic pain syndrome G89.4 [facility] [address] [place] [address] 62342- 1089 Sep, [facility] [address] [place] [address] 46496- 1488 Sep, Depression, unspecified depression type F32.9 ; Chronic bronchitis, unspecified chronic bronchitis type J42 ; Chronic pain syndrome G89.4 and Anxiety F41.9 [facility] [address] [place] [id number] Sep, History of Clostridium difficile infection Z86.19 and History of stroke Z86.73 [facility] [id number] [place] [address] [id number] Sep, Anxiety F41.9 [facility] [address] [place] [address] 85537- 0417 Sep, Chronic pain syndrome G89.4 [facility] [id number] [place] [address] 70253- 5962 Sep, [facility] [id number] [place] [address] [id number] Sep, [facility] [id number] [place] [address] 89979- 5458 Aug, Anxiety F41.9 [facility] [address] [place] [address] 20523- 6717 Aug, Anxiety F41.9 [facility] [id number] [place] [address] 62683- 0331 Aug, [facility] [id number] [place] [address] 60720- 2418 14 Aug, 2016 Acute knee pain, unspecified laterality M25.569 [facility] [id number] [place] [address] 44649- 1885 Aug, [facility] [id number] [place] [address] 82873- 0961 Aug, Chronic pain syndrome G89.4 [facility] [id number] [place] [address] 11403- 4452 Aug, [facility] [address] [place] [address] 75048- 5405 Aug, [facility] [address] [place] [address] 53391- 9984 Jul, [facility] [address] [place] [address] 00163- 8526 Jul, Anxiety F41.9 [facility] [address] [place] [address] 05979- 7310 Jul, Clostridium difficile diarrhea A04.7 [facility] [address] [place] [id number] Jul, Clostridium difficile diarrhea A04.7 ; Chronic pain syndrome G89.4 ; Chronic obstructive pulmon disease w acute lower resp infct J44.0 and Pain in right knee M25.561 [facility] [id number] [place] [address] [id number] Jul, [facility] [address] [place] [address] 17445 -0548 Jul, Anxiety F41.9 and Chronic pain syndrome G89.4 [facility] [id number] [place] [address] 17085- 0197 Jun, Anxiety F41.9 [facility] [address] [place] [address] 22778- 7408 Jun, Rheumatoid arthritis 714.0 [facility] [id number] [place] [address] 75202- 9888 Jun, Chronic pain syndrome G89.4 [facility] [address] [place] [address] 44831- 8387 Jun, [facility] [id number] [place] [address] 51821- 0458 Jun, [facility] [address] [place] [address] 35187- 7411 Jun, History of pneumonia Z87.01 and History of Clostridium difficile Z87.19 [facility] [address] [place] [address] 73240- 9623 Jun, [facility] [address] [place] [address] 76829- 6450 May, [facility] [address] [place] [address] 04920 2541 May, Anxiety F41.9 [facility] [id number] [place] [address] 32201- 1403 May, Chronic pain syndrome G89.4 [facility] [address] [place] [address] 92617- 9304 May, Chronic bronchitis, unspecified chronic bronchitis type J42 [facility] [address] [address]- 4662 May, [facility] [id number] [place] [address] 11097- 8326 May, C. difficile diarrhea A04.7 ; Peripheral edema R60.9 ; COPD (chronic obstructive pulmonary disease) J44.9 ; Rheumatoid arthritis, involving unspecified site, unspecified rheumatoid factor presence M06.9 ; Pain in right knee M25.561 ; Pain in left knee M25.562 and Other chronic pain G89.29 [facility] [id number] [place] [address] 80517- 8169 May, [facility] [id number] [place] [address] 34588- 1561 May, [facility] [id number] [place] [address] 67171- 8466 May, Anxiety F41.9 [facility] [id number] [place] [address] 99343- 5872 Apr, [facility] [id number] [place] [address] 12403- 0386 Apr, Chronic pain syndrome G89.4 [facility] [id number] [place] [address] 10246- 1145 Apr, Leg pain, left M79.605 [facility] [id number] [place] [address] 74460- 2238 Apr, [facility] [address] [place] [address] 45285- 6316 Apr, [facility] [id number] [place] [address] 63125- 2969 Apr, [facility] [address] [address]- 6517 Mar, Chronic pain syndrome G89.4 [facility] [id number] [place] [address] 90616- 8613 Mar, Acute frontal sinusitis, recurrence not specified J01.10 [facility] [address] [place] [address] 32426- 8430 Mar, Iron deficiency anemia, unspecified iron deficiency anemia type D50.9 ; Rheumatoid arthritis with positive rheumatoid factor, involving unspecified site M05.9 and Depression, unspecified depression type F32.9 [facility] [id number] [place] [address] 78580- 6592 Mar, Iron deficiency anemia, unspecified iron deficiency anemia type D50.9 ; Depression, unspecified depression type F32.9 and Rheumatoid arthritis with positive rheumatoid factor, involving unspecified site M05.9 [facility] [id number] [place] [address] 84751- 3702 Mar, [facility] [id number] [place] [address] 76748- 8924 Mar, [facility] [id number] [place] [address] 28751- 4308 Feb, Chronic pain syndrome G89.4 [facility] [id number] [place] [address] 65900- 8304 30 Feb, 2016 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 ; Status post CVA Z86.73 ; Hemiplegia G81.90 and Anemia, unspecified type D64.9 [facility] [address] [place] [address] 77081- 6905 Feb, [facility] [id number] [place] [address] 80545- 2606 Feb, Anemia, unspecified type D64.9 [facility] [id number] [place] [address] 40980- 9963 Feb, [facility] [id number] [place] [address] 56230- 5236 Feb, Iron deficiency anemia, unspecified iron deficiency anemia type D50.9 [facility] [address], [place] [address]- 2964 Feb, [facility] [id number] [place] [address] 83987- 4413 Feb, Chronic bronchitis, unspecified chronic bronchitis type J42 [facility] [address] [place] [address] 50775- 1407 Feb, Iron deficiency anemia, unspecified iron deficiency anemia type D50.9 [facility] [id number] [place] [address] 08461- 3034 Feb, Chronic pain syndrome G89.4 [facility] [id number] [place] [address] 57508- 3989 Feb, Anemia, unspecified type D64.9 and Hypoxia R09.02 [facility] [id number] [place] [address] 09488- 7410 Feb, Anemia, unspecified type D64.9 [facility] [address], [place] [address]- 5043 Jan, [facility] [id number] [place] [address] 43979- 0521 Jan, Anemia, unspecified type D64.9 [facility] [address], [place] [address]- 5102 Jan, [facility] [address] [place] [address] 09202- 2272 Jan, Anemia, unspecified type D64.9 [facility] [address], [place] [address]- 0138 Jan, Anemia, unspecified type D64.9 [facility] [address], [place] [address]- 3832 Jan, [facility] [address], [place] [address]- 8524 Jan, Anemia, unspecified type D64.9 [facility] [address] [place] [address] 26163- 3439 Jan, [facility] [id number] [place] [address] 38336- 1941 Jan, [facility] [id number] [place] [address] 89911- 5585 Jan, Chronic pain syndrome G89.4 [facility] [id number] [place] [address] 69912- 9218 Jan, Anemia, unspecified type D64.9 [facility] [id number] [place] [address] 26607- 0079 Jan, Dysthymia F34.1 ; Cervicalgia M54.2 ; Fatigue, unspecified type R53.83 and Depression, unspecified depression type F32.9 [facility] [id number] [place] [address] 59849- 0920 Dec, [facility] [id number] [place] [address] 09434- 6313 Dec, Anxiety F41.9 [facility] [address] 48399- 7292 Dec, Chronic pain syndrome G89.4 [facility] [id number] [place] [address] 69388- 9042 November, [facility] [id number] [place] [address] 53901- 7290 November, Edema R60.9 and Dizziness R42 [facility] [id number] [place] [address] 08037- 6693 November, [facility] [id number] [place] [address] 85635- 6920 November, [facility] [id number] [place] [address] 45303- 8171 November, COPD (chronic obstructive pulmonary disease) J44.9 ; Increased tracheal secretions J39.8 and Edema R60.9 [facility] [id number] [place] [address] 55023 -0849 29 Oct, 2015 [facility] [id number] [place] [address] 77516 -0105 28 Oct, 2015 Shortness of breath R06.02 and Edema R60.9 [facility] [address] 56623- 2896 20 Oct, 2015 Chronic bronchitis, unspecified chronic bronchitis type J42 ; Peripheral vascular disease, unspecified I73.9 ; Rheumatoid arthritis M06.9 and Atrial fibrillation I48.91 [facility] [address] 77138- 6769 Oct, [facility] [id number] [place] [address] 65480- 4965 Oct, [facility] [id number] [place] [address] 70095- 3396 Oct, [facility] [id number] [place] [address] 91488- 0436 Oct, [facility] [id number] [place] [address] 32527 -6819 Oct, COPD exacerbation J44.1 [facility] [id number] [place] [address] 13051- 4264 Sep, [facility] [id number] [place] [address] 92905- 0742 Sep, [facility] [id number] [place] [address] 65763- 6441 16 Sep, 2015 [facility] [id number] [place] [address] 00378- 6304 17 Aug, 2015 [facility] [id number] [place] [address] 52645- 7788 16 Aug, 2015 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 and PVD (peripheral vascular disease ) I73.9 [facility] [address] [place] [address] 70030- 0761 Aug, Bronchitis J40 ; COPD (chronic obstructive pulmonary disease ) J44.9 and Dysthymia F34.1 [facility] [id number] [place] [address] 61326- 9016 Aug, [facility] [address] 22311- 0206 Jul, [facility] [id number] [place] [address] 60166- 2032 Jul, [facility] [id number] [place] [address] 23669- 5907 Jul, [facility] [id number] [place] [address] 10971- 1181 Jun, [facility] [id number] [place] [address] 13687- 7224 Jun, [facility] [id number] [place] [address] 05514- 0905 Jun, Peripheral vascular disease I73.9 [facility] [id number] [place] [address] 91641- 6309 Jun, [facility] [id number] [place] [address] 57912- 8473 Jun, [facility] [id number] [place] [address] 75117- 2541 Jun, Leg pain, left M79.605 ; Dysphagia, unspecified dysphagia R13.10 ; Insomnia, unspecified type G47.00 ; PVD (peripheral vascular disease) I73.9 and 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 [facility] [id number] [place] [address] 00928- 4352 May, [facility] [address] 22756- [address]96 May, [facility] [id number] [place] [address] May, [facility] [id number] [place] [address] 00331- 9703 May, [facility] [id number] [address] May, [facility] [address] [facility] [id number] [place] [address] 47561- 3002 Apr, [facility] [id number] [place] [address] 94417- 6021 Apr, [facility] [id number] [place] [address] 38173- 3553 Mar, [facility] [address] [id number] [place] [address] 56571- 2521 Mar, [facility] [id number] [place] [address] 31969- 0287 Feb, [facility] [id number] [place] [address] 22215- 3557 Feb, Nicotine abuse 305.1 ; Arthralgia 719.40 and 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 [facility] [id number], [place] [address] 6271 Feb, [facility] [id number], [place] [address] 5156 Jan, [facility] [id number], [place] [address] 1946 Jan, [facility] [id number], [place] [address] 5833 Jan, [facility] [id number] 6687 Jan, [facility] [id number] [place] [address] 18082- 3624 Jan, 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 ; Rheumatoid arthritis 714.0 ; Hypertension 401.9 ; GERD (gastroesophageal reflux disease) 530.81 ; Nicotine addiction 305.1 and Leukocytosis 288.60 [facility] [id number], [place] [address] 6115 Jan, 2014 [facility] [id number] [place] [address] 68059- 5604 Jan, 2014 [facility] [id number] [place] [address] 26853- 3397 Jan, [facility] [id number] [place] [address] 56301- 8265 Jan, [facility] [id number] [place] [address] 17844- 2811 Jan, [facility] [id number] [place] [address] 92185- 5252 Dec, [facility] [id number] [place] [address] 78877- 6796 Dec, [facility] [id number] [place] [address] 28203- 8780 Dec, [facility] [id number] [place] [address] 20607- 7969 Dec, [facility] [id number] [place] [address] 55559- 8622 November, [facility] [id number], [place] [address]- 2970 November, [facility] [id number] [place] [address] 83540- 9025 November, Shortness of breath 786.05 [facility] [id number], [place] [address]- 1224 November, Rheumatoid arthritis 714.0 [facility] [id number] [place] [address] 88840- 0885 November, 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 [facility] [id number] [place] [address] 64512- 2737 November, Neuropathy 355.9 ; Insomnia 780.52 ; Dysthymia 300.4 ; Shortness of breath 786.05 ; Rheumatoid arthritis 714.0 and Nausea 787.02 [facility] [id number] [place] [address] 61445- 6026 November, [facility] [id number] [place] [address] 71163- 4966 November, [facility] [id number] [place] [address] 081488- 1963 Oct, [facility] [id number] [place] [address] 19356- 6681 Oct, [facility] [id number] [place] [address] 67512- 2560 Oct, [facility] [id number] [place] [address] 91688- 2184 Oct, [facility] [id number] [place] [address] 24432183- 0151 Sep, [facility] [id number] 0924 Sep, [facility] [id number], [place] [address]- 5190 Sep, [facility] [address], [place] [address]- 5895 Sep, [facility] [id number] [place] [address] 14478- 6275 Sep, [facility] [id number], [place] [address]- 4206 Sep, [facility] [id number] [place] [address] 39383- 7412 Sep, [facility] [place] [facility] [address] [id number] [place] [address]- 4404 Sep, [facility] [place] [facility] [address] [id number] [place] [address]- 1531 Aug, [facility] [place] [facility] [address] [id number] [place] [address]- 7214 Aug, [facility] [place] [facility] [address] [id number] [place] [address]- 5832 Aug, [facility] [place] [facility] [address] [id number] [place] [address]- 5536 Aug, [facility] [place] [facility] [address] [id number] [place] [address]- 5564 Aug, [facility] [place] [facility] [address] [id number] [place] [address]- 6837 Aug, [facility] [place] [facility] [address] [id number] [place] [address]- 4716 Jul, [facility] [place] [facility] [address] [id number] [place] [address]- 1236 Jul, [facility] [place] [facility] [address] [id number] [place] [address]- 0555 Jul, [facility] [place] [facility] [address] [id number] [place] [address]- 6929 Jul, [facility] [place] [facility] [address] [id number] [place] [address]- 1625 Jul, [facility] [place] [facility] [address] [id number] [place] [address]- 3016 Jul, [facility] [place] [facility] [address] [id number] [place] [address]- 1786 Jul, [facility] [place] [facility] [address] [id number] [place] [address]- 0647 Jul, [facility] [place] [facility] [address] [id number] [place] [address]- 2075 Jul, [facility] [address] [id number] [place] [address]- 1378 Jul, [facility] [place] [facility] [address] [id number] [place] [address]- 4739 Jun, [facility] [place] [facility] [address] [id number] [place] [address]- 4413 Jun, [facility] [place] [facility] [address] [id number] [place] [address]- 9003 Jun, [facility] [address] [id number] [place] [address]- 5741 Jun, [facility] [address] [id number] [place] [address]- 1133 Jun, [facility] [address] [id number] [place] [address]- 6079 Jun, [facility] [address] [id number] [place] [address]- 3453 Jun, [facility] [place] [facility] [address] [id number] [place] [address]- 9656 Jun, [facility] [address] [id number] [place] [address]- 1330 Jun, [facility] [place] [facility] [address] [id number] [place] [address]- 7481 Jun, [facility] [place] [facility] [address] [id number] [place] [address]- 6808 Jun, [facility] [place] [facility] [address] [id number] [place] [address]- 9146 Jun, [facility] [place] [facility] [address] [id number] [place] [address]- 4064 Jun, [facility] [place] [facility] [address] [id number] [place] [address]- 5457 Jun, [facility] [place] [facility] [address] [id number] [place] [address]- 7732 Jun, [facility] [place] [facility] [address] [id number] [place] [address]- 5978 Jun, [facility] [place] [facility] [address] [id number] [place] [address]- 4302 May, [facility] [place] [facility] [address] [id number] [place] [address]- 2274 May, [facility] [place] [facility] [address] [id number] [place] [address]- 0528 May, [facility] [place] [facility] [address] [id number] [place] [address]- 5615 May, [facility] [place] [facility] [address] [id number] [place] [address]- 4631 May, [facility] [place] [facility] [address] [id number] [place] [address]- 1385 May, [facility] [place] [facility] [address] [id number] [place] [address]- 7005 May, [facility] [place] [facility] [address] [id number] [place] [address]- 1142 May, [facility] [place] [facility] [address] [id number] [place] [address]- 8061 May, [facility] [place] [facility] [address] [id number], [place] [address]- 6015 Apr, [facility] [place] [facility] [address] [id number] [place] [address]- 9114 Apr, [facility] [place] [facility] [address] [id number] [place] [address]- 2123 Apr, [facility] [place] [facility] [address] [id number] [place] [address]- 7138 Apr, [facility] [place] [facility] [address] [id number] [place] [address]- 3073 Apr, [facility] [place] [facility] [address] [id number] [place] [address]- 2284 10 Apr, 2014 [facility] [place] [facility] [address] [id number] [place] [address]- 6255 Apr, [facility] [place] [facility] [address] [id number] [place] [address]- 4503 Apr, [facility] [place] [facility] [address] [id number] [place] [address]- 3020 Apr, [facility] [place] [facility] [address] [id number] [place] [address]- 4438 Apr, [facility] [place] [facility] [address] [id number] [place] [address]- 1210 Apr, [facility] [place] [facility] [address] [id number] [place] [address]- 3211 Apr, [facility] [place] [facility] [address] [id number] [place] [address]- 5680 22 Mar, 2013 [facility] [place] [facility] [address] [id number] [place] [address]- 1409 22 Mar, 2013 [facility] [place] [facility] [address] [id number] [place] [address]- 2755 19 Mar, 2013 [facility] [place] [facility] [address] [id number] [place] [address]- 4851 19 Mar, 2013 [facility] [place] [facility] [address] [id number], [place] [address]- 3411 11 Mar, 2013 [facility] [place] [facility] [address] [id number] [place] [address]- 6665 11 Mar, 2013 [facility] [place] [facility] [address] [id number], [place] [address]- 5730 11 Mar, 2013 [facility] [place] [facility] [address] [id number], [place] [address]- 5060 11 Mar, 2013 [facility] [place] [facility] [address] [id number] [place] [address]- 6216 Mar, [facility] [place] [facility] [address] [id number] [place] [address]- 0298 Mar, [facility] [place] [facility] [address] [id number] [place] [address]- 7119 Feb, [facility] [place] [facility] [address] [id number] [place] [address]- 3747 Feb, [facility] [place] [facility] [address] [id number] [place] [address]- 1912 Feb, [facility] [place] [facility] [address] [id number] [place] [address]- 8191 Feb, [facility] [place] [facility] [address] [id number] [place] [address]- 7955 Feb, [facility] [place] [facility] [address] [id number] [place] [address]- 2495 Feb, [facility] [place] [facility] [address] [id number] [place] [address]- 2472 Feb, [facility] [place] [facility] [address] [id number] [place] [address]- 4777 Feb, [facility] [place] [facility] [address] [id number] [place] [address]- 9493 Feb, [facility] [place] [facility] [address] [id number] [place] [address]- 5360 Feb, [facility] [place] [facility] [address] [id number] [place] [address]- 7205 Feb, [facility] [place] [facility] [address] [id number] [place] [address]- 6046 Feb, [facility] [place] [facility] [address] [id number] [place] [address]- 3619 Feb, [facility] [place] [facility] [address] [id number] [place] [address]- 4683 Feb, [facility] [place] [facility] [address] [id number] [place] [address]- 9208 Feb, [facility] [place] [facility] [address] [id number] [place] [address]- 6757 Feb, [facility] [place] [facility] [address] [id number] [place] [address]- 1155 Jan, [facility] [place] [facility] [address] [id number] [place] [address]- 1926 Jan, [facility] [place] [facility] [address] [id number] [place] [address]- 9713 Jan, [facility] [place] [facility] [address] [id number] [place] [address]- 5383 Jan, [facility] [place] [facility] [address] [id number] [place] [address]- 8690 Jan, [facility] [place] [facility] [address] [id number] [place] [address]- 5343 Jan, [facility] [place] [facility] [address] [id number] [place] [address]- 6417 Dec, [facility] [place] [facility] [address] [id number] [place] [address]- 7585 Dec, [facility] [place] [facility] [address] [id number] [place] [address]- 7481 Dec, [facility] [place] [facility] [address] [id number], [place] [address]- 1421 Dec, [facility] [place] [facility] [address] [id number] [place] [address]- 1970 Dec, [facility] [place] [facility] [address] [id number] [place] [address]- 6327 Dec, [facility] [place] [facility] [address] [id number] [place] [address]- 1484 Dec, [facility] [place] [facility] [address] [id number] [place] [address]- 6125 Dec, [facility] [place] [facility] [address] [id number] [place] [address]- 1916 November, [facility] [place] [facility] [address] [id number] [place] [address]- 2869 November, [facility] [place] [facility] [address] [id number] [place] [address]- 2541 November, [facility] [place] [facility] [address] [id number] [place] [address]- 9535 November, [facility] [place] [facility] [address] [id number] [place] [address]- 8380 November, [facility] [place] [facility] [address] [id number] [place] [address]- 4770 November, [facility] [place] [facility] [address] [id number] [place] [address]- 3601 Oct, [facility] [place] [facility] [address] [id number] [place] [address]- 0353 Oct, [facility] [place] [facility] [address] [id number] [place] [address]- 7884 Oct, [facility] [place] [facility] [address] [id number] [place] [address]- 3241 Oct, [facility] [place] [facility] [address] [id number] [place] [address]- 4485 Sep, [facility] [place] [facility] [address] [id number] [place] [address]- 9523 Sep, [facility] [place] [facility] [address] [id number] [place] [address]- 5199 Sep, [facility] [place] [facility] [address] [id number] [place] [address]- 0263 Sep, [facility] [place] [facility] [address] [id number] [place] [address]- 0302 Sep, [facility] [place] [facility] [address] [id number] [place] [address]- 3432 Sep, [facility] [place] [facility] [address] [id number] [place] [address]- 5156 Aug, [facility] [place] [facility] [address] [id number] [place] [address]- 6265 Aug, [facility] [place] [facility] [address] [id number] [place] [address]- 4430 Aug, [facility] [place] [facility] [address] [id number] [place] [address]- 9162 Aug, [facility] [place] [facility] [address] [id number] [place] [address]- 7110 Aug, [facility] [place] [facility] [address] [id number] [place] [address]- 7410 Aug, [facility] [place] [facility] [address] [id number] [place] [address]- 4377 Jul, [facility] [place] [facility] [address] [id number] [place] [address]- 0449 Jul, [facility] [place] [facility] [address] [id number] [place] [address]- 4819 Jul, [facility] [place] [facility] [address] [id number] [place] [address]- 9519 Jul, [facility] [place] [facility] [address] [id number] [place] [address]- 9276 Jul, [facility] [place] [facility] [address] [id number] [place] [address]- 3948 Jul, [facility] [place] [facility] [address] [id number] [place] [address]- 6151 Jul, [facility] [place] [facility] [address] [id number] [place] [address]- 6507 Jul, [facility] [place] [facility] [address] [id number] [place] [address]- 1887 Jul, [facility] [place] [facility] [address] [id number] [place] [address]- 8629 Jul, [facility] [place] [facility] [address] [id number] [place] [address]- 5043 Jul, [facility] [place] [facility] [address] [id number] [place] [address]- 7980 Jul, [facility] [place] [facility] [address] [id number] [place] [address]- 7925 Jul, [facility] [place] [facility] [address] [id number] [place] [address]- 7675 Jul, [facility] [place] [facility] [address] [id number] [place] [address]- 1110 Jul, [facility] [place] [facility] [address] [id number] [place] [address]- 5427 Jun, [facility] [place] [facility] [address] [id number] [place] [address]- 6382 Jun, [facility] [place] [facility] [address] [id number] [place] [address]- 6935 Jun, [facility] [place] [facility] [address] [facility] [id number] [place] [address]- 4795 Jun, [facility] [place] [facility] [address] [id number] [place] [address]- 5611 May, [facility] [place] [facility] [address] [id number] [place] [address]- 8264 May, [facility] [address] [id number] [place] [id number] May, [facility] [place] [facility] [address] [id number] [place] [address]- 2536 May, [facility] [place] [facility] [address] [id number] [place] [address]- 9554 May, [facility] [place] [facility] [address] [id number], [place] [address]- 3596 May, [facility] [address] [id number], [place] [address]- 0566 May, [facility] [id number], [place] [address] 2546 May, [facility] [id number], [place] [address]- 2186 May, [facility] [address] [id number] May, [facility] [id number], [place] [address]- 9526 May, [facility] [address] [id number] May, [facility] [id number], [place] [address]- 1726 May, [facility] [address] [id number] May, [facility] [address] [facility] [id number], [place] [address]- 3976 May, IMMUNIZATIONS No Known Immunizations SOCIAL HISTORY Never Assessed REASON FOR VISIT Controlled Med Refill-06/16/17 PLAN OF CARE VITAL SIGNS MEDICATIONS Medication Instructions Dosage Frequency Start Date End Date Duration Status Oxycodone-Acetaminophen 5-325 MG Orally 2 times a day 1 tablet 12h Jun, Jul, 28 days Active RESULTS No Results [...] Diarrhea, leukocytosis--ryanrn 01/08/16 Hospitalization History pseudomemranous colitis, sepsis--[facility] 04/21/2016 Hospitalization History C Diff--[facility] 05/10/2016 Hospitalization History sepsis, pneumonia, diarrhea--[facility] 06/11/16 Hospitalization History recurrent cdiff, pneumonia-[facility] 07/22/16 Hospitalization History sepsis,pneumonia- [facility]
--- OUTSIDE RECORDS SUMMARY | 2018-03-18 20:45 | XMS REPORT ---
Author Author MIKHAIL RIVAS [facility] Address [address] [place] [address] Care Team Providers Care Miter Operator Name Role Phone MIKHAIL RIVAS Unavailable PROBLEMS Type Condition ICD9-CM Code YMO43-HD Code Onset Dates Condition Status SNOMED Code Problem Hx of Clostridium difficile infection Z86.19 Active 549925601 Problem History of arthroplasty of right knee Z96.651 Active 858606400 Problem Dysphagia, unspecified dysphagia R13.10 Active 76804298 Problem Chronic pain syndrome G89.4 Active 853451636 Problem 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 744674579 Problem Anxiety F41.9 Active 09705737 Problem Leg pain, left M79.605 Active 139252768 Problem Depression, unspecified depression type F32.9 Active 17076948 Problem Iron deficiency anemia, unspecified iron deficiency anemia type D50.9 Active 29711112 Problem Anemia, unspecified type D64.9 Active 512390274 Problem Seasonal allergic rhinitis due to pollen J30.1 Active 08361011 Problem Insomnia, unspecified G47.00 Active 842557221 Problem 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 597441622 Problem History of cerebrovascular accident with current residual effects I69.90 Active 089606494 Problem Peripheral vascular disease, unspecified I73.9 Active 351399400 Problem Rheumatoid arthritis, involving unspecified site, unspecified rheumatoid factor presence M06.9 Active 25340485 Problem Other chronic pain G89.29 Active 33024607 Problem Primary insomnia F51.01 Active 4260800 Problem Chronic obstructive pulmon disease w acute lower resp infct J44.0 Active 314871433 Problem Atrial fibrillation I48.91 Active 17146765 Problem Dysthymia F34.1 Active 13335057 Problem Osteoarthritis of foot M19.079 Active 145334081 Problem Rheumatoid arthritis M06.9 Active 27312775 Problem Tobacco abuse, 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 675024508 Problem Edema R60.9 Active 080066229 Problem COPD (chronic obstructive pulmonary disease) J44.9 Active 81122174 Problem Hypertension I10 Active 01900467 ALLERGIES No Information ENCOUNTERS Encounter Location Date Diagnosis [facility] [id number] [place] [address] 27579- 0413 Sep, Left upper quadrant pain R10.12 ; Chronic pain syndrome G89.4 ; Left lower quadrant pain R10.32 ; Other chronic pain G89.29 ; Sacrococcygeal disorders, not elsewhere classified M53.3 and Seasonal allergic rhinitis due to pollen J30.1 [facility] [id number] [place] [address] 07703- 9342 Sep, Chronic pain syndrome G89.4 [facility] [id number] [place] [address] 55328- 7187 Sep, [facility] [id number] [place] [address] 94861- 9612 Aug, Chronic pain syndrome G89.4 [facility] [id number] [place] [address] 95981- 9393 Aug, [facility] [address] 69692- 2497 Aug, Insomnia, unspecified G47.00 [facility] [id number] [place] [address] 28688- 8980 Jul, [facility] [id number] [place] [address] 88004- 5580 Jul, [facility] [id number] [place] [address] 54401- 7354 Jul, Chronic pain syndrome G89.4 [facility] [id number] [place] [address] 19113- 5718 Jun, Chronic pain syndrome G89.4 [facility] [id number] [place] [address] 41043- 4562 Jun, Chronic pain syndrome G89.4 [facility] [address] [address] 0105 May, [facility] [id number] [place] [address] 37448- 4567 May, Shortness of breath R06.02 ; Peripheral vascular disease, unspecified I73.9 ; Pain in right knee M25.561 ; Other chronic pain G89.29 ; Chest wall pain R07.89 ; Chronic pain syndrome G89.4 ; Primary insomnia F51.01 and Ear pain, left H92.02 [facility] [id number] [place] [address] 44804- 0515 May, Anxiety F41.9 [facility] [id number] [place] [address] 98299- 0469 Apr, Pneumonia due to infectious organism, unspecified laterality , unspecified part of lung J18.9 ; Hypoxia R09.02 ; Bradycardia R00.1 ; History of Clostridium difficile Z87.19 and Primary insomnia F51.01 [facility] [id number] [place] [address] 77948- 6694 Apr, Anxiety F41.9 [facility] [id number] [place] [address] 75644- 0292 Apr, [facility] [id number] [place] [address] 49739- 1778 Mar, Anxiety F41.9 [facility] [id number] [place] [address] 43481- 8143 Feb, [facility] [id number] [place] [address] 82777- 9108 Feb, [facility] [id number] [place] [address] 62519- 5156 Feb, Abnormal finding on urinalysis R82.90 [facility] [id number] [place] [address] 32323- 5384 Feb, [facility] [id number] [place] [address] 34039- 0209 Feb, Shortness of breath R06.02 ; Tachycardia R00.0 ; Cough R05 ; Ill feeling R68.89 and Abnormal finding on urinalysis R82.90 [facility] [id number] [place] [address] 09287- 7405 Feb, Anxiety F41.9 [facility] [id number] [place] [address] 52197 -4087 Feb, Sore throat J02.9 and Acute diffuse otitis externa of left ear H60.312 [facility] [address] 65096- 6232 Jan, [facility] [id number] [place] [address] 96515- 9549 Jan, [facility] [address] [id number] Jan, [facility] [id number] [place] [address] 41993- 7985 Jan, Depression, unspecified depression type F32.9 ; Chronic bronchitis, unspecified chronic bronchitis type J42 ; Chronic pain syndrome G89.4 and Anxiety F41.9 [facility] [id number] [place] [address] 13297- 9033 Jan, [facility] [id number] [place] [address] 56136- 2302 Jan, [facility] [id number] [place] [address] 24987- 0669 Jan, [facility] [address] [id number] Jan, Chronic pain syndrome G89.4 [facility] [address] [place] [id number] Dec, History of right knee surgery Z98.890 [facility] [id number] [place] [address] 19187- 2312 Dec, [facility] [address], [place] [address]- 4742 Dec, Chronic pain syndrome G89.4 [facility] [id number] [place] [address] 53605- 1814 November, Anxiety F41.9 [facility] [id number] [place] [address] 90422 -2036 November, Acute cystitis without hematuria N30.00 [facility] [id number] [place] [address] 90201 -5972 November, Fever, unspecified fever cause R50.9 and Acute cystitis without hematuria N30.00 [facility] [id number] [place] [address] 99250- 8405 November, Chronic pain syndrome G89.4 [facility] [id number] [place] [address] 72416- 2832 Oct, Anxiety F41.9 [facility] [id number] [place] [address] 49702- 5705 Oct, Chronic pain syndrome G89.4 [facility] [id number] [place] [address] 46749- 5952 Oct, Chronic pain syndrome G89.4 [facility] [address] [address]- 7067 Oct, [facility] [id number] [place] [address] 37347- 7732 Oct, Chronic pain syndrome G89.4 ; Pain in right knee M25.561 ; History of Clostridium difficile Z87.19 ; Iron deficiency anemia, unspecified iron deficiency anemia type D50.9 ; Peripheral vascular disease, unspecified I73.9 and Atrial fibrillation I48.91 [facility] [address], [place] [address]- 4356 Oct, [facility] [id number] [address]- 6911 Oct, Chronic pain syndrome G89.4 [facility] [id number] [place] [address] 63745- 8652 Sep, [facility] [id number] [place] [address] 45990- 2577 Sep, Depression, unspecified depression type F32.9 ; Chronic bronchitis, unspecified chronic bronchitis type J42 ; Chronic pain syndrome G89.4 and Anxiety F41.9 [facility] [address] [id number] Sep, History of Clostridium difficile infection Z86.19 and History of stroke Z86.73 [facility] [id number] [place] [address] [id number] Sep, Anxiety F41.9 [facility] [id number] [place] [address] 53251- 3254 Sep, Chronic pain syndrome G89.4 [facility] [address], [place] [address]- 1442 Sep, [facility] [id number] [place] [address] [id number] Sep, [facility] [id number] [place] [address] 17327- 0291 Aug, Anxiety F41.9 [facility] [id number] [place] [address] 19574- 9063 Aug, Anxiety F41.9 [facility] [address], [place] [address]- 0179 16 Aug, 2016 [facility] [id number] [place] [address] 89277- 8133 14 Aug, 2016 Acute knee pain, unspecified laterality M25.569 [facility] [address], [place] [address]- 6262 13 Aug, 2016 [facility] [id number] [address]- 4925 Aug, Chronic pain syndrome G89.4 [facility] [id number] [place] [address] 67071- 3979 Aug, [facility] [id number] [place] [address] 410046- 4825 Aug, [facility] [id number] [place] [address] 70643- 7902 Jul, [facility] [id number] [place] [address] 39055- 8532 Jul, Anxiety F41.9 [facility] [id number] [place] [address] 03013- 7437 Jul, Clostridium difficile diarrhea A04.7 [facility] [address] [id number] Jul, Clostridium difficile diarrhea A04.7 ; Chronic pain syndrome G89.4 ; Chronic obstructive pulmon disease w acute lower resp infct J44.0 and Pain in right knee M25.561 [facility] [id number] [place] [address] [id number] Jul, [facility] [id number] [place] [address] 03681 -9409 Jul, Anxiety F41.9 and Chronic pain syndrome G89.4 [facility] [id number] [place] [address] 91651- 8824 Jun, Anxiety F41.9 [facility] [id number] [place] [address] 94446- 1260 Jun, Rheumatoid arthritis 714.0 [facility] [id number] [place] [address] 08236- 0809 Jun, Chronic pain syndrome G89.4 [facility] [id number] [place] [address] 41318- 0657 Jun, [facility] [id number], [place] [address]- 0300 13 Jun, 2016 [facility] [id number] [place] [address] 25409- 5344 12 Jun, 2016 History of pneumonia Z87.01 and History of Clostridium difficile Z87.19 [facility] [id number] [place] [address] 19812- 0672 06 Jun, 2016 [facility] [id number] [place] [address] 91500- 7691 May, [facility] [id number] [place] [address] 06990- 5097 May, Anxiety F41.9 [facility] [id number] [place] [address] 95965- 9652 May, Chronic pain syndrome G89.4 [facility] [id number] [place] [address] 16787- 3159 May, Chronic bronchitis, unspecified chronic bronchitis type J42 [facility] [id number] [place] [address] 75729- 6373 May, [facility] [id number] [place] [address] 65947- 8652 May, C. difficile diarrhea A04.7 ; Peripheral edema R60.9 ; COPD (chronic obstructive pulmonary disease) J44.9 ; Rheumatoid arthritis, involving unspecified site, unspecified rheumatoid factor presence M06.9 ; Pain in right knee M25.561 ; Pain in left knee M25.562 and Other chronic pain G89.29 [facility] [address], [place] [address]- 1793 May, [facility] [id number] [place] [address] 43979- 2350 May, [facility] [id number] [place] [address] 90130- 6642 May, Anxiety F41.9 [facility] [id number] [place] [address] 89748- 6592 Apr, [facility] [address], [place] [address]- 3552 Apr, Chronic pain syndrome G89.4 [facility] [address], [place] [address]- 4043 Apr, Leg pain, left M79.605 [facility] [id number] [place] [address] 82882- 4978 Apr, [facility] [id number] [place] [address] 36627- 8889 Apr, [facility] [id number] [place] [address] 04215- 4532 Apr, [facility] [id number] [place] [address] 00159- 5986 28 Mar, 2016 Chronic pain syndrome G89.4 [facility] [address], [place] [address]- 5503 Mar, Acute frontal sinusitis, recurrence not specified J01.10 [facility] [address], [place] [address]- 0218 20 Mar, 2016 Iron deficiency anemia, unspecified iron deficiency anemia type D50.9 ; Rheumatoid arthritis with positive rheumatoid factor, involving unspecified site M05.9 and Depression, unspecified depression type F32.9 [facility] [address], [place] [address]- 9121 13 Mar, 2016 Iron deficiency anemia, unspecified iron deficiency anemia type D50.9 ; Depression, unspecified depression type F32.9 and Rheumatoid arthritis with positive rheumatoid factor, involving unspecified site M05.9 [facility] [address], [place] [address]- 4287 Mar, [facility] [address], [place] [address]- 4605 Mar, [facility] [id number] [place] [address] 25311- 0742 Feb, Chronic pain syndrome G89.4 [facility] [id number] [place] [address] 65956- 7035 30 Feb, 2016 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 ; Status post CVA Z86.73 ; Hemiplegia G81.90 and Anemia, unspecified type D64.9 [facility] [id number] [place] [address] 72898- 9336 Feb, [facility] [id number] [place] [address] 11648- 4931 Feb, Anemia, unspecified type D64.9 [facility] [id number] [place] [address] 49398- 0766 Feb, [facility] [id number] [place] [address] 13825- 5162 Feb, Iron deficiency anemia, unspecified iron deficiency anemia type D50.9 [facility] [id number] [place] [address] 93108- 0399 Feb, [facility] [id number] [place] [address] 99378- 0422 Feb, Chronic bronchitis, unspecified chronic bronchitis type J42 [facility] [id number] [place] [address] 10254- 5722 Feb, Iron deficiency anemia, unspecified iron deficiency anemia type D50.9 [facility] [id number] [place] [address] 89455- 1443 Feb, Chronic pain syndrome G89.4 [facility] [id number] [place] [address] 99553- 3966 Feb, Anemia, unspecified type D64.9 and Hypoxia R09.02 [facility] [id number] [place] [address] 59466- 7388 Feb, Anemia, unspecified type D64.9 [facility] [id number] [address]- 8325 Jan, [facility] [id number] [place] [address] 48450- 4787 Jan, Anemia, unspecified type D64.9 [facility] [address], [place] [address]- 6116 Jan, [facility] [id number] [place] [address] 81281- 2296 Jan, Anemia, unspecified type D64.9 [facility] [address], [place] [address]- 1726 Jan, Anemia, unspecified type D64.9 [facility] [address], [place] [address]- 0352 Jan, [facility] [id number] [place] [address] 63398- 5877 Jan, Anemia, unspecified type D64.9 [facility] [address], [place] [address]- 5690 Jan, [facility] [id number] [place] [address] 73962- 1806 Jan, [facility] [address], [place] [address]- 3814 Jan, Chronic pain syndrome G89.4 [facility] [id number] [place] [address] 72493- 9763 Jan, Anemia, unspecified type D64.9 [facility] [address], [place] [address]- 9063 Jan, Dysthymia F34.1 ; Cervicalgia M54.2 ; Fatigue, unspecified type R53.83 and Depression, unspecified depression type F32.9 [facility] [address], [place] [address]- 8894 Dec, [facility] [id number] [place] [address] 56418- 3606 14 Dec, 2015 Anxiety F41.9 [facility] [address] 83480- 6094 08 Dec, 2015 Chronic pain syndrome G89.4 [facility] [id number] [place] [address] 40877- 6734 November, [facility] [address] 79348- 9297 November, Edema R60.9 and Dizziness R42 [facility] [address] 78752- 9786 November, [facility] [address] 83550- 4084 November, [facility] [address] 77003- 1120 November, COPD (chronic obstructive pulmonary disease) J44.9 ; Increased tracheal secretions J39.8 and Edema R60.9 [facility] [id number] [place] [address] 44860 -2093 Oct, [facility] [id number] [place] [address] 62653 -1147 Oct, Shortness of breath R06.02 and Edema R60.9 [facility] [id number] [place] [address] 04651- 5695 Oct, Chronic bronchitis, unspecified chronic bronchitis type J42 ; Peripheral vascular disease, unspecified I73.9 ; Rheumatoid arthritis M06.9 and Atrial fibrillation I48.91 [facility] [id number] [place] [address] 48769- 4404 Oct, [facility] [id number] [place] [address] 96533- 7272 Oct, [facility] [id number] [place] [address] 03667- 7496 Oct, [facility] [address], [place] [address]- 7611 Oct, [facility] [address], [place] [address] -3193 Oct, COPD exacerbation J44.1 [facility] [address], [place] [address]- 8108 Sep, [facility] [id number] [place] [address] 09582- 9829 Sep, [facility] [id number] [place] [address] 53811- 2414 Sep, [facility] [id number] [place] [address] 34005- 7618 Aug, [facility] [id number] [place] [address] 65647- 1447 Aug, 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 and PVD (peripheral vascular disease ) I73.9 [facility] [id number] [place] [address] 19575- 4996 Aug, Bronchitis J40 ; COPD (chronic obstructive pulmonary disease ) J44.9 and Dysthymia F34.1 [facility] [address], [place] [address]- 3020 Aug, [facility] [address], [place] [address]- 1544 Jul, [facility] [address], [place] [address]- 8564 Jul, [facility] [id number] [place] [address] 55969- 5887 Jul, [facility] [address], [place] [address]- 4189 Jun, [facility] [id number] [place] [address] 30667- 8580 Jun, [facility] [address] 4888 Jun, Peripheral vascular disease I73.9 [facility] [id number] [place] [address] 91490- 8455 Jun, [facility] [id number] [place] [address] 243412- 5843 Jun, [facility] [id number] [place] [address] 907391- 4238 Jun, Leg pain, left M79.605 ; Dysphagia, unspecified dysphagia R13.10 ; Insomnia, unspecified type G47.00 ; PVD (peripheral vascular disease) I73.9 and 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 [facility] [id number] [place] [address] 60545- 5605 May, [facility] [id number] [place] [address] 35494- 4090 May, [facility] [id number] [place] [address] 04161- 3838 May, [facility] [id number] [place] [address] 79920- 2528 May, [facility] [id number] [place] [address] 42576- 8622 May, [facility] [id number] [place] [address] 84438- 3093 Apr, [facility] [id number] [place] [address] 24047- 4330 Apr, [facility] [id number] [place] [address] [id number] 30 Mar, 2015 [facility] [id number] [place] [address] [phone]- [phone] Mar, [facility] [id number] [address] Feb, [facility] [id number] [address] Feb, Nicotine abuse 305.1 ; Arthralgia 719.40 and 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 [facility] [id number] [address] Feb, [facility] [id number] [place] [address] [phone]- [phone] Jan, [facility] [id number] [place] [address] [id number]- [phone] Jan, [facility] [id number] [place] [address] [id number]- 6586 Jan, [facility] [id number] [place] [address] [phone]- 8229 Jan, [facility] [id number] [place] [address] [phone]- 1787 Jan, 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 ; Rheumatoid arthritis 714.0 ; Hypertension 401.9 ; GERD (gastroesophageal reflux disease) 530.81 ; Nicotine addiction 305.1 and Leukocytosis 288.60 [facility] [id number] [address] Jan, [facility] [id number] [address] 89[address] Jan, [facility] [id number] [address] Jan, [facility] [id number] [address] Jan, [facility] [id number], [place] [address] 9200 Jan, [facility] [id number], [place] [address] Dec, [facility] [id number], [place] [address] Dec, [facility] [id number] [place] [address] 823410- 7782 Dec, [facility] [id number] [place] [address] 241314- 2112 Dec, [facility] [id number] [place] [address] 033302- 7051 November, [facility] [id number] [place] [address] 454038- 7132 November, [facility] [id number] [place] [address] 72317- 8267 November, Shortness of breath 786.05 [facility] [id number] [place] [address]- 1935 November, Rheumatoid arthritis 714.0 [facility] [id number] [place] [address] 70545- 4886 November, 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 [facility] [id number] [place] [address] 67238- 8665 November, Neuropathy 355.9 ; Insomnia 780.52 ; Dysthymia 300.4 ; Shortness of breath 786.05 ; Rheumatoid arthritis 714.0 and Nausea 787.02 [facility] [address] [address] 8383 November, [facility] [id number], [place] [address]- 7099 November, [facility] [id number] [place] [address] 040446- 2194 Oct, [facility] [address], [place] [address] 6147 Oct, [facility] [id number] [place] [address] 06950- 4075 Oct, [facility] [place] [facility] [address] [id number] [place] [address]- 8069 13 Oct, 2014 [facility] [place] [facility] [address] [id number] [place] [address]- 9187 Sep, [facility] [place] [facility] [address] [id number] [place] [address]- 2925 Sep, [facility] [place] [facility] [address] [id number] [place] [address]- 8105 Sep, [facility] [place] [facility] [address] [id number] [place] [address]- 1498 Sep, [facility] [place] [facility] [address] [id number] [place] [address]- 5652 Sep, [facility] [place] [facility] [address] [id number] [place] [address]- 5014 Sep, [facility] [place] [facility] [address] [id number] [place] [address]- 3417 Sep, [facility] [place] [facility] [address] [id number] [place] [address]- 1957 Sep, [facility] [place] [facility] [address] [id number] [place] [address]- 1569 Aug, [facility] [place] [facility] [address] [id number] [place] [address]- 0857 Aug, [facility] [place] [facility] [address] [id number] [address]- 5394 Aug, [facility] [place] [facility] [address] [id number] [place] [address]- 2864 Aug, [facility] [place] [facility] [address] [id number] [place] [address]- 0007 Aug, [facility] [place] [facility] [address] [id number] [place] [address]- 1091 Aug, [facility] [place] [facility] [address] [id number] [place] [address]- 7236 Jul, [facility] [place] [facility] [address] [id number] [place] [address]- 7226 Jul, [facility] [place] [facility] [address] [id number] [place] [address]- 4184 Jul, [facility] [place] [facility] [address] [id number] [place] [address]- 5135 Jul, [facility] [place] [facility] [address] [id number] [place] [address]- 3810 Jul, [facility] [place] [facility] [address] [id number] [place] [address]- 3723 Jul, [facility] [place] [facility] [address] [id number] [place] [address]- 3481 Jul, [facility] [place] [facility] [address] [id number] [place] [address]- 5774 Jul, [facility] [place] [facility] [address] [id number] [place] [address]- 6690 Jul, [facility] [place] [facility] [address] [id number] [place] [address]- 6061 Jul, [facility] [place] [facility] [address] [facility] [id number] [place] [address]- 5865 Jun, [facility] [place] [facility] [address] [id number] [place] [address]- 9753 Jun, [facility] [place] [facility] [address] [id number] [place] [address]- 1488 Jun, [facility] [place] [facility] [address] [id number] [place] [address]- 8561 Jun, [facility] [place] [facility] [address] [id number] [place] [address]- 6257 Jun, [facility] [place] [facility] [address] [id number] [place] [address]- 1578 Jun, [facility] [place] [facility] [address] [id number] [place] [address]- 6095 Jun, [facility] [place] [facility] [address] [id number] [place] [address]- 7458 Jun, [facility] [place] [facility] [address] [id number] [place] 8278 Jun, [facility] [place] [facility] [address] [id number] [place] [address]- 0773 Jun, [facility] [place] [facility] [address] [id number] [place] [address]- 5394 Jun, [facility] [place] [facility] [address] [id number] [place] [address]- 8881 Jun, [facility] [place] [facility] [address] [id number] [place] [address]- 2773 Jun, [facility] [place] [facility] [address] [id number] [place] [address]- 0321 Jun, [facility] [place] [facility] [address] [id number] [place] [address]- 1843 Jun, [facility] [place] [facility] [address] [id number] [place] [address]- 5957 Jun, [facility] [place] [facility] [address] [id number] [place] [address]- 0982 May, [facility] [place] [facility] [address] [id number] [place] [address]- 8514 May, [facility] [place] [facility] [address] [id number] [place] [address]- 9813 May, [facility] [place] [facility] [address] [id number] [place] [address]- 1136 May, [facility] [place] [facility] [address] [id number] [place] [address]- 8141 May, [facility] [place] [facility] [address] [id number] [place] [address]- 8839 May, [facility] [place] [facility] [address] [id number] [place] [address]- 1161 May, [facility] [place] [facility] [address] [id number] [place] 9151 May, [facility] [place] [facility] [address] [id number] [place] [address]- 3486 May, [facility] [place] [facility] [address] [id number] [place] [address]- 2865 Apr, [facility] [place] [facility] [address] [id number] [place] [address]- 6822 Apr, [facility] [place] [facility] [address] [id number] [place] [address]- 4188 Apr, [facility] [place] [facility] [address] [id number] [place] [address]- 2996 Apr, [facility] [place] [facility] [address] [id number] [place] [address]- 6059 Apr, [facility] [place] [facility] [address] [id number] [place] [address]- 8203 Apr, [facility] [place] [facility] [address] [id number] [place] [address]- 8238 Apr, [facility] [place] [facility] [address] [id number] [address]- 5564 Apr, [facility] [place] [facility] [address] [id number], [place] [address]- 4592 Apr, [facility] [place] [facility] [address] [id number] [place] [address]- 9465 Apr, [facility] [place] [facility] [address] [id number] [address]- 6044 Apr, [facility] [place] [facility] [address] [id number] [place] [address]- 3219 Apr, [facility] [place] [facility] [address] [id number] [place] [address]- 0881 22 Mar, 2013 [facility] [place] [facility] [address] [id number] [place] [address]- 2632 22 Mar, 2013 [facility] [place] [facility] [address] [id number] [place] [address]- 2546 Mar, 2013 [facility] [place] [facility] [address] [id number] [place] [address]- 2506 Mar, 2013 [facility] [place] [facility] [address] [id number] [place] [address]- 6505 Mar, 2013 [facility] [place] [facility] [address] [id number] [place] [address]- 4705 Mar, 2013 [facility] [place] [facility] [address] [id number] [place] [address]- 1362 Mar, 2013 [facility] [place] [facility] [address] [id number] [place] [address]- 0797 Mar, 2013 [facility] [place] [facility] [address] [id number] [place] [address]- 3259 Mar, [facility] [place] [facility] [address] [id number] [place] [address]- 6684 Mar, [facility] [place] [facility] [address] [id number] [place] [address]- 0197 Feb, [facility] [place] [facility] [address] [id number] [place] [address]- 254 Feb, [facility] [place] [facility] [address] [id number] [place] [address]- 2542 Feb, [facility] [place] [facility] [address] [id number] [place] [address]- 7362 Feb, [facility] [place] [facility] [address] [id number] [place] [address]- 7912 Feb, [facility] [place] [facility] [address] [id number] [place] [address]- 5992 Feb, [facility] [place] [facility] [address] [id number] [place] [address]- 2685 Feb, [facility] [place] [facility] [address] [id number] [place] [address]- 1727 Feb, [facility] [place] [facility] [address] [id number] [place] [address]- 4494 Feb, [facility] [place] [facility] [address] [id number] [place] [address]- 4291 Feb, [facility] [place] [facility] [address] [id number] [place] [address]- 5035 Feb, [facility] [place] [facility] [address] [id number] [place] [address]- 9964 Feb, [facility] [place] [facility] [address] [id number] [place] [address]- 8250 Feb, [facility] [place] [facility] [address] [id number] [place] [address]- 6126 Feb, [facility] [place] [facility] [address] [id number] [place] [address]- 3689 Feb, [facility] [place] [facility] [address] [id number] [place] [address]- 6794 Feb, [facility] [place] [facility] [address] [id number] [place] [address]- 0603 Jan, [facility] [place] [facility] [address] [id number] [place] [address]- 5956 Jan, [facility] [place] [facility] [address] [id number] [place] [address]- 7252 Jan, [facility] [place] [facility] [address] [id number] [place] [address]- 0961 Jan, [facility] [place] [facility] [address] [id number] [place] [address]- 1953 Jan, [facility] [place] [facility] [address] [id number], [place] [address]- 8859 Jan, [facility] [place] [facility] [address] [id number] [place] [address]- 5531 Dec, [facility] [place] [facility] [address] [id number] [place] [address]- 2672 Dec, [facility] [place] [facility] [address] [id number] [place] [address]- 9406 Dec, [facility] [place] [facility] [address] [id number] [place] [address]- 9045 Dec, [facility] [place] [facility] [address] [id number] [place] [address]- 1845 Dec, [facility] [place] [facility] [address] [id number] [place] [address]- 5562 Dec, [facility] [place] [facility] [address] [id number] [place] [address]- 7162 Dec, [facility] [place] [facility] [address] [id number] [place] [address]- 6704 Dec, [facility] [place] [facility] [address] [id number] [place] [address]- 9271 November, [facility] [place] [facility] [address] [id number] [place] [address]- 4751 November, [facility] [place] [facility] [address] [id number] [place] [address]- 7734 November, [facility] [place] [facility] [address] [id number] [place] [address]- 6837 November, [facility] [place] [facility] [address] [id number] [place] [address]- 6194 November, [facility] [place] [facility] [address] [id number] [place] [address]- 6954 November, [facility] [place] [facility] [address] [id number] [place] [address]- 3794 Oct, [facility] [place] [facility] [address] [id number] [place] [address]- 9722 Oct, [facility] [place] [facility] [address] [id number] [place] [address]- 6426 Oct, [facility] [place] [facility] [address] [id number] [place] [address]- 8797 Oct, [facility] [place] [facility] [address] [id number] [place] [address]- 8609 Sep, [facility] [place] [facility] [address] [id number] [place] [address]- 9063 Sep, [facility] [place] [facility] [address] [id number] [place] [address]- 2174 Sep, [facility] [place] [facility] [address] [facility] [id number] [place] [address]- 0294 Sep, [facility] [place] [facility] [address] [id number] [place] [address]- 0412 Sep, [facility] [place] [facility] [address] [id number] [place] [address]- 0559 Sep, [facility] [place] [facility] [address] [id number] [place] [address]- 0527 Aug, [facility] [place] [facility] [address] [facility] [id number] [place] [address]- 8746 Aug, [facility] [place] [facility] [address] [id number] [place] [address]- 8674 Aug, [facility] [place] [facility] [address] [id number] [place] [address]- 5346 Aug, [facility] [place] [facility] [address] [id number] [place] [address]- 4875 Aug, [facility] [place] [facility] [address] [id number] [place] [address]- 0827 Aug, [facility] [place] [facility] [address] [facility] [id number] [place] [address]- 0666 Jul, [facility] [address] [id number] [place] [address]- 0824 Jul, [facility] [place] [facility] [address] [id number] [place] [address]- 0638 Jul, [facility] [place] [facility] [address] [id number] [place] [address]- 5714 Jul, [facility] [place] [facility] [address] [id number] [place] [address]- 0940 Jul, [facility] [place] [facility] [address] [id number] [place] [address]- 1702 Jul, [facility] [place] [facility] [address] [id number] [place] [address]- 9318 Jul, [facility] [place] [facility] [address] [id number] [place] [address]- 0872 Jul, [facility] [place] [facility] [address] [id number] [place] [address]- 9011 Jul, [facility] [place] [facility] [address] [id number] [place] [address]- 5369 Jul, [facility] [place] [facility] [address] [id number] [place] [address]- 5520 Jul, [facility] [place] [facility] [address] [id number] [place] [address]- 6531 Jul, [facility] [place] [facility] [address] [id number] [place] [address]- 2332 Jul, [facility] [place] [facility] [address] [id number] [place] [address]- 7769 Jul, [facility] [place] [facility] [address] [id number] [place] [address]- 5225 Jul, [facility] [place] [facility] [address] [id number] [place] [address]- 8452 Jun, [facility] [place] [facility] [address] [id number] [place] [address]- 2369 18 Jun, 2013 [facility] [address] [id number] [place] [address]- 0797 Jun, [facility] [place] [facility] [address] [id number] [place] [address]- 1649 Jun, [facility] [place] [facility] [address] [id number] [place] [address]- 4834 May, [facility] [place] [facility] [address] [id number] [place] [address]- 2419 May, [facility] [address] [facility] [id number] [id number] May, [facility] [place] [facility] [address] [id number] [place] [address]- 1278 May, [facility] [place] [facility] [address] [id number] [place] [address]- 7571 May, [facility] [place] [facility] [address] [id number] [place] [address]- 3267 May, [facility] [place] [facility] [address] [id number] [place] [address]- 7073 May, [facility] [address] [facility] [id number], [place] [address]- 8436 May, [facility] [place] [facility] [address] [id number], [place] [address]- 5554 May, [facility] [address] [id number][place] [address] May, [facility] [place] [facility] [address] [id number], [place] [address]- 3904 May, [facility] [address] [facility] [id number][place] [id number] May, [facility] [place] [facility] [address] [id number], [place] [address]- 4046 May, [facility] [address] [facility] [id number] [place] [id number] May, [facility] [address] [facility] [id number] [place] [address]- 3969 May, IMMUNIZATIONS No Known Immunizations SOCIAL HISTORY Never Assessed REASON FOR VISIT Increased pain PLAN OF CARE VITAL SIGNS MEDICATIONS Medication Instructions Dosage Frequency Start Date End Date Duration Status Hydrocodone-Acetaminophen 5-325 MG Orally every 4 hrs 1-2 tablet as needed 4h Jan, Active RESULTS No Results PROCEDURES No Known [...] leukocytosis--tank davis 01/08/16 Hospitalization History pseudomemranous colitis, sepsis--[facility] 04/21/2016 Hospitalization History C Diff--[facility] 05/10/2016 Hospitalization History sepsis, pneumonia, diarrhea--[facility] 06/11/16 Hospitalization History recurrent cdiff, pneumonia-[facility] 07/22/16 Hospitalization History sepsis,pneumonia- [facility]
--- OUTSIDE RECORDS SUMMARY | 2018-03-18 20:45 | XMS REPORT ---
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 983006392 Problem Leg pain, left M79.605 Active 893963459 Problem Edema R60.9 Active 578383536 Problem Anxiety F41.9 Active 84462897 Problem Chronic pain syndrome G89.4 Active 671036619 Problem Chronic obstructive pulmon disease w acute lower resp infct J44.0 Active Problem Other chronic pain G89.29 Active 83834430 Problem PVD (peripheral vascular disease) I73.9 Active 892854743 Problem Insomnia, unspecified type G47.00 Active 515032944 Problem Dysphagia, unspecified dysphagia R13.10 Active 18043744 Problem Anemia, unspecified type D64.9 Active 236158704 Problem Depression, unspecified depression type F32.9 Active 01146267 Problem Rheumatoid arthritis, involving unspecified site, unspecified rheumatoid factor presence M06.9 Active 25500972 Problem Iron deficiency anemia, unspecified iron deficiency anemia type D50.9 Active 30239904 Problem 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 960216231 Problem Osteoarthritis of foot M19.079 Active 920935319 Problem Peripheral vascular disease, unspecified I73.9 Active 733148906 Problem History of cerebrovascular accident with current residual effects I69.90 Active 557231313 Problem Rheumatoid arthritis M06.9 Active 09747244 Problem Atrial fibrillation I48.91 Active 29826636 Problem Hypertension I10 Active 10202902 Problem COPD (chronic obstructive pulmonary disease) J44.9 Active 17187285 ALLERGIES No Information SOCIAL HISTORY Never Assessed [...] leukocytosis--tank davis 01/08/16 Hospitalization History pseudomemranous colitis, sepsis--[facility] 04/21/2016 Hospitalization History C Diff--[facility] 05/10/2016 Hospitalization History sepsis, pneumonia, diarrhea--[facility] 06/11/16 Hospitalization History recurrent cdiff, pneumonia-[facility] 07/22/16
--- OUTSIDE RECORDS SUMMARY | 2018-03-18 20:46 | XMS REPORT ---
Author Author DAPHNE YUSUF Organization [facility] Address [address] [place] [address] Care Team Providers Care Cushion Assembler Name Role Phone DAPHNE YUSUF Unavailable PROBLEMS Type Condition ICD9-CM Code EAX19-YA Code Onset Dates Condition Status SNOMED Code Problem Hx of Clostridium difficile infection Z86.19 Active 758519421 Problem History of arthroplasty of right knee Z96.651 Active 762475558 Problem Dysphagia, unspecified dysphagia R13.10 Active 77668273 Problem Chronic pain syndrome G89.4 Active 793966509 Problem 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 039733059 Problem Anxiety F41.9 Active 54373723 Problem Leg pain, left M79.605 Active 495086530 Problem Depression, unspecified depression type F32.9 Active 15955437 Problem Iron deficiency anemia, unspecified iron deficiency anemia type D50.9 Active 85074919 Problem Anemia, unspecified type D64.9 Active 748971379 Problem Seasonal allergic rhinitis due to pollen J30.1 Active 87888269 Problem Insomnia, unspecified G47.00 Active 474345288 Problem 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 262522084 Problem History of cerebrovascular accident with current residual effects I69.90 Active 724304214 Problem Peripheral vascular disease, unspecified I73.9 Active 027892722 Problem Rheumatoid arthritis, involving unspecified site, unspecified rheumatoid factor presence M06.9 Active 62087891 Problem Other chronic pain G89.29 Active 54051308 Problem Primary insomnia F51.01 Active 5839192 Problem Chronic obstructive pulmon disease w acute lower resp infct J44.0 Active 272274799 Problem Atrial fibrillation I48.91 Active 44288679 Problem Dysthymia F34.1 Active 66325988 Problem Osteoarthritis of foot M19.079 Active 151012481 Problem Rheumatoid arthritis M06.9 Active 84060488 Problem Tobacco abuse, 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 417898541 Problem Edema R60.9 Active 655415103 Problem COPD (chronic obstructive pulmonary disease) J44.9 Active 61985010 Problem Hypertension I10 Active 79153997 ALLERGIES No Information ENCOUNTERS Encounter Location Date Diagnosis [facility] [id number] [place] [address] 99859- 8139 Oct, Chronic pain syndrome G89.4 [facility] [address] 17533- 9678 Oct, [facility] [address] 57488- 0211 Oct, [facility] [address] 63666- 7140 Sep, Left upper quadrant pain R10.12 ; Chronic pain syndrome G89.4 ; Left lower quadrant pain R10.32 ; Other chronic pain G89.29 ; Sacrococcygeal disorders, not elsewhere classified M53.3 and Seasonal allergic rhinitis due to pollen J30.1 [facility] [id number] [place] [address] 80420- 9591 Sep, Chronic pain syndrome G89.4 [facility] [address] 60916- 2598 Sep, [facility] [id number] [place] [address] 32902- 3471 Aug, Chronic pain syndrome G89.4 [facility] [id number] [place] [address] 10353- 9809 Aug, [facility] [id number] [place] [address] 90029- 2818 Aug, Insomnia, unspecified G47.00 [facility] [id number] [place] [address] 03714- 3436 Jul, [facility] [id number] [place] [address] 64737- 4901 Jul, [facility] [address] [place] [address] Jul, Chronic pain syndrome G89.4 [facility] [id number] [place] [address] 26136- 5771 Jun, Chronic pain syndrome G89.4 [facility] [id number] [place] [address] 54979- 9337 Jun, Chronic pain syndrome G89.4 [facility] [id number] [place] [address] 95655- 1971 May, [facility] [id number] [place] [address] 37432- 0182 May, Shortness of breath R06.02 ; Peripheral vascular disease, unspecified I73.9 ; Pain in right knee M25.561 ; Other chronic pain G89.29 ; Chest wall pain R07.89 ; Chronic pain syndrome G89.4 ; Primary insomnia F51.01 and Ear pain, left H92.02 [facility] [id number] [place] [address] 66556- 2779 May, Anxiety F41.9 [facility] [id number] [place] [address] 05533- 5882 Apr, Pneumonia due to infectious organism, unspecified laterality , unspecified part of lung J18.9 ; Hypoxia R09.02 ; Bradycardia R00.1 ; History of Clostridium difficile Z87.19 and Primary insomnia F51.01 [facility] [address] [place] [address] 69631- 8425 Apr, Anxiety F41.9 [facility] [id number] [place] [address] 86669- 3934 Apr, [facility] [id number] [place] [address] 07494- 0376 Mar, Anxiety F41.9 [facility] [id number] [place] [address] 11629- 1537 Feb, [facility] [id number] [place] [address] 44513- 7727 Feb, [facility] [address] 36962- 7081 Feb, Abnormal finding on urinalysis R82.90 [facility] [address] [place] [address] 91184- 8535 Feb, [facility] [address] 72059- 1988 Feb, Shortness of breath R06.02 ; Tachycardia R00.0 ; Cough R05 ; Ill feeling R68.89 and Abnormal finding on urinalysis R82.90 [facility] [facility] [address] 04438- 4360 Feb, Anxiety F41.9 [facility] [address] 55356 -6606 Feb, Sore throat J02.9 and Acute diffuse otitis externa of left ear H60.312 [facility] [id number] [place] [address] 39041- 7926 Jan, [facility] [address] 99143- 2343 Jan, [facility] [address] [id number] Jan, [facility] [id number] [place] [address] 71580- 9988 Jan, Depression, unspecified depression type F32.9 ; Chronic bronchitis, unspecified chronic bronchitis type J42 ; Chronic pain syndrome G89.4 and Anxiety F41.9 [facility] [address] 82238- 9603 Jan, [facility] [id number] [place] [address] 78581- 4572 Jan, [facility] [address] 04249- 4223 Jan, [facility] [id number] [place] [address] [id number] Jan, Chronic pain syndrome G89.4 [facility] [address] [place] [id number] Dec, History of right knee surgery Z98.890 [facility] [address] [place] [address]- 4487 Dec, [facility] [id number] [place] [address] 79780- 3448 Dec, Chronic pain syndrome G89.4 [facility] [id number] [place] [address] 49417- 9471 November, Anxiety F41.9 [facility] [address] [place] [address] 47394 -7820 November, Acute cystitis without hematuria N30.00 [facility] [id number] [place] [address] 44500 -1663 November, Fever, unspecified fever cause R50.9 and Acute cystitis without hematuria N30.00 [facility] [address] [place] [address] 59979- 8553 November, Chronic pain syndrome G89.4 [facility] [address] [address]- 3208 Oct, Anxiety F41.9 [facility] [address] [place] [address] 65664- 7863 Oct, Chronic pain syndrome G89.4 [facility] [address] [place] [address] 49669- 9718 Oct, Chronic pain syndrome G89.4 [facility] [address] [place] [address] 60936- 4137 Oct, [facility] [address] [place] [address] 86799- 2041 Oct, Chronic pain syndrome G89.4 ; Pain in right knee M25.561 ; History of Clostridium difficile Z87.19 ; Iron deficiency anemia, unspecified iron deficiency anemia type D50.9 ; Peripheral vascular disease, unspecified I73.9 and Atrial fibrillation I48.91 [facility] [address] [place] [address] 19102- 7319 Oct, [facility] [id number] [place] [address] 92773- 0901 Oct, Chronic pain syndrome G89.4 [facility] [address] [place] [address] 66202- 4045 Sep, [facility] [facility] [id number] [place] [address] 71343- 8824 Sep, Depression, unspecified depression type F32.9 ; Chronic bronchitis, unspecified chronic bronchitis type J42 ; Chronic pain syndrome G89.4 and Anxiety F41.9 [facility] [address] [place] [id number] Sep, History of Clostridium difficile infection Z86.19 and History of stroke Z86.73 [place] [id number] [place] [address] [id number] Sep, Anxiety F41.9 [facility] [address] [place] [address] 76487- 8899 Sep, Chronic pain syndrome G89.4 [facility] [address] [place] [address] 90759- 2803 Sep, [facility] [id number] [place] [address] [id number] Sep, [facility] [address] [place] [address] 36338- 0241 Aug, Anxiety F41.9 [facility] [address] [place] [address] 94967- 0377 Aug, Anxiety F41.9 [facility] [id number] [place] [address] 49745- 2332 16 Aug, 2016 [facility] [address] [place] [address] 48080- 5761 14 Aug, 2016 Acute knee pain, unspecified laterality M25.569 [facility] [address] [place] [address] 05338- 2395 13 Aug, 2016 [facility] [id number] [place] [address] 09457- 6648 Aug, Chronic pain syndrome G89.4 [facility] [address] [place] [address] 06387- 6847 Aug, [facility] [id number] [place] [address] 77787- 1977 Aug, [facility] [id number] [place] [address] 65556- 2526 Jul, [facility] [address] [place] [address] 79309- 6082 Jul, Anxiety F41.9 [facility] [address] [place] [address] 01581- 9654 Jul, Clostridium difficile diarrhea A04.7 [facility] [address] [id number] Jul, Clostridium difficile diarrhea A04.7 ; Chronic pain syndrome G89.4 ; Chronic obstructive pulmon disease w acute lower resp infct J44.0 and Pain in right knee M25.561 [facility] [id number] [place] [address] [id number] Jul, [facility] [address] [place] [address] 40534 -9251 Jul, Anxiety F41.9 and Chronic pain syndrome G89.4 [facility] [address] [place] [address] 97923- 4020 Jun, Anxiety F41.9 [facility] [id number] [place] [address] 76977- 4233 Jun, Rheumatoid arthritis 714.0 [facility] [address] [place] [address]- 3876 Jun, Chronic pain syndrome G89.4 [facility] [address] [place] [address]- 4175 Jun, [facility] [address] [address]- 6527 Jun, [facility] [address] [place] [address]- 1417 12 Jun, 2016 History of pneumonia Z87.01 and History of Clostridium difficile Z87.19 [facility] [address] [address]- 8190 06 Jun, 2016 [facility] [address] [place] [address]- 7843 May, [facility] [address] [place] [address]- 5845 May, Anxiety F41.9 [facility] [address] [address]- 6315 23 May, 2016 Chronic pain syndrome G89.4 [facility] [address] [address]- 5878 15 May, 2016 Chronic bronchitis, unspecified chronic bronchitis type J42 [facility] [address] [place] [address]- 0038 May, [facility] [id number] [address]- 1088 09 May, 2016 C. difficile diarrhea A04.7 ; Peripheral edema R60.9 ; COPD (chronic obstructive pulmonary disease) J44.9 ; Rheumatoid arthritis, involving unspecified site, unspecified rheumatoid factor presence M06.9 ; Pain in right knee M25.561 ; Pain in left knee M25.562 and Other chronic pain G89.29 [facility] [address] [place] [address]- 1339 May, [facility] [address] [address]- 2186 May, [facility] [address] [address] 2546 May, Anxiety F41.9 [facility] [address] [address]- 3438 Apr, [facility] [id number] [address]- 9433 Apr, Chronic pain syndrome G89.4 [facility] [address] [place] [address]- 8550 Apr, Leg pain, left M79.605 [facility] [address] [address]- 0596 Apr, [facility] [address], [place] [address]- 1586 Apr, [facility] [address] [place] [address]- 0467 Apr, [facility] [address] [address]- 5949 28 Mar, 2016 Chronic pain syndrome G89.4 [facility] [address], [place] [address]- 1869 22 Mar, 2016 Acute frontal sinusitis, recurrence not specified J01.10 [facility] [id number] [address]- 4023 20 Mar, 2016 Iron deficiency anemia, unspecified iron deficiency anemia type D50.9 ; Rheumatoid arthritis with positive rheumatoid factor, involving unspecified site M05.9 and Depression, unspecified depression type F32.9 [facility] [address] [address]- 8415 13 Mar, 2016 Iron deficiency anemia, unspecified iron deficiency anemia type D50.9 ; Depression, unspecified depression type F32.9 and Rheumatoid arthritis with positive rheumatoid factor, involving unspecified site M05.9 [place] [id number] [place] [address] 15301- 2145 Mar, [facility] [id number] [place] [address] 21704- 0162 Mar, [facility] [id number] [place] [address] 57550- 8593 Feb, Chronic pain syndrome G89.4 [facility] [address] [place] [address] 08438- 1284 Feb, 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 ; Status post CVA Z86.73 ; Hemiplegia G81.90 and Anemia, unspecified type D64.9 [facility] [address] [place] [address] 54308- 7645 Feb, [facility] [address] [place] [address] 95150- 8147 Feb, Anemia, unspecified type D64.9 [facility] [address] [place] [address] 90942- 9520 Feb, [facility] [address] [place] [address] 95521- 8990 Feb, Iron deficiency anemia, unspecified iron deficiency anemia type D50.9 [facility] [address] [place] [address] 99759- 4820 Feb, [facility] [id number] [place] [address] 08497- 4574 Feb, Chronic bronchitis, unspecified chronic bronchitis type J42 [facility] [address] [place] [address] 83112- 1696 Feb, Iron deficiency anemia, unspecified iron deficiency anemia type D50.9 [place] [address] [place] [address] 16878- 6511 Feb, Chronic pain syndrome G89.4 [facility] [address] [place] [address]- 4856 Feb, Anemia, unspecified type D64.9 and Hypoxia R09.02 [facility] [id number] [place] [address] 2546 Feb, Anemia, unspecified type D64.9 [facility] [address] [place] [address], [place] [address]- 5816 Jan, [facility] [address] [address]- 1635 Jan, Anemia, unspecified type D64.9 [facility] [address] [place] [address] 26124- 4817 Jan, [facility] [address] [place] [address] 08204- 8958 Jan, Anemia, unspecified type D64.9 [facility] [address] [address]- 8206 Jan, Anemia, unspecified type D64.9 [facility] [address], [place] [address]- 8373 Jan, [facility] [address], [place] [address]- 2807 Jan, Anemia, unspecified type D64.9 [facility] [address], [place] [address]- 0321 Jan, [facility] [address], [place] [address]- 5146 Jan, [facility] [address] [address]- 3305 Jan, Chronic pain syndrome G89.4 [facility] [address] [place] [address] 2546 Jan, Anemia, unspecified type D64.9 [facility] [id number] [place] [address] 77203- 3829 05 Jan, 2016 Dysthymia F34.1 ; Cervicalgia M54.2 ; Fatigue, unspecified type R53.83 and Depression, unspecified depression type F32.9 [facility] [id number] [place] [address] 64292- 0987 Dec, [facility] [facility] [address] 27751- 9837 Dec, Anxiety F41.9 [facility] [address] 38795- 7742 Dec, Chronic pain syndrome G89.4 [facility] [facility] [address] 13436- 9316 November, [facility] [facility] [address] 80537- 0170 November, Edema R60.9 and Dizziness R42 [facility] [id number] [place] [address] 91401- 0659 November, [facility] [address] 78978- 9159 November, [facility] [id number] [place] [address] 98603- 5857 November, COPD (chronic obstructive pulmonary disease) J44.9 ; Increased tracheal secretions J39.8 and Edema R60.9 [facility] [address] [place] [address] 00297 -1729 Oct, [facility] [address] 94467 -9373 Oct, Shortness of breath R06.02 and Edema R60.9 [facility] [address] [place] [address] 99773- 3067 Oct, Chronic bronchitis, unspecified chronic bronchitis type J42 ; Peripheral vascular disease, unspecified I73.9 ; Rheumatoid arthritis M06.9 and Atrial fibrillation I48.91 [facility] [address] [place] [address]- 3856 19 Oct, 2015 [facility] [address], [place] [address]- 8716 Oct, [facility] [address] [place] [address] 37388- 4795 Oct, [facility] [id number] [place] [address] 96183- 3773 Oct, [facility] [id number] [place] [address] 00839 -8188 Oct, COPD exacerbation J44.1 [facility] [id number] [place] [address] 17803- 1927 Sep, [facility] [id number] [place] [address] 56162- 8723 Sep, [facility] [id number] [place] [address] 45530- 3210 Sep, [facility] [id number] [place] [address] 95147- 6192 Aug, [facility] [id number] [place] [address]- 8528 Aug, 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 and PVD (peripheral vascular disease ) I73.9 [facility] [address] [place] [address]- 3259 Aug, Bronchitis J40 ; COPD (chronic obstructive pulmonary disease ) J44.9 and Dysthymia F34.1 [facility] [address] [place] [address] 86536- 1514 Aug, [facility] [address] [place] [address]- 5222 Jul, [facility] [id number] [place] [address]- 0992 Jul, [facility] [address] [place] [address] 531111- 6468 Jul, [facility] [address] [place] [address] 176529- 2087 Jun, [facility] [address] [place] [address] 050519- 9839 Jun, [facility] [address] [place] [address] 11367- 4529 Jun, Peripheral vascular disease I73.9 [facility] [id number] [place] [address] [id number]- 5407 Jun, [facility] [id number] [place] [address] 43954- 0141 Jun, [facility] [id number] [place] [address] 33352- 8060 Jun, Leg pain, left M79.605 ; Dysphagia, unspecified dysphagia R13.10 ; Insomnia, unspecified type G47.00 ; PVD (peripheral vascular disease) I73.9 and 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 [facility] [id number] [address] May, [facility] [id number] [place] [address] May, [facility] [id number] [place] [address] [phone]- 9085 May, [facility] [id number] [place] [address] [phone]- 2928 May, [facility] [id number] [place] [address] [id number]- [id number] May, [facility] [id number] [place] [address] Apr, [facility] [id number] [place] [address] 2014 Apr, [facility] [id number] [place] [address] Mar, [facility] [id number] [place] [address] Mar, [facility] [id number] [place] [address] Feb, [facility] [id number] [place] [address] Feb, Nicotine abuse 305.1 ; Arthralgia 719.40 and 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 [facility] [id number] [place] [address] Feb, [facility] [facility] [id number], [place] [address] Jan, [facility] [id number], [place] [address] 30[address] Jan, [facility] [id number], [place] [address] 8[address] Jan, [facility] [id number], [place] [address] Jan, [facility] [id number], [place] [address] Jan, 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 ; Rheumatoid arthritis 714.0 ; Hypertension 401.9 ; GERD (gastroesophageal reflux disease) 530.81 ; Nicotine addiction 305.1 and Leukocytosis 288.60 [facility] [id number], [place] [address] 6753 Jan, [facility] [id number], [place] [address] 6395 Jan, [facility] [id number], [place] [address] 5857 Jan, [facility] [id number], [place] [address] 5944 Jan, [facility] [id number] [place] [address]- 2932 Jan, [facility] [id number] [place] [address] 27[address]- 2429 Dec, [facility] [id number] [place] [address] 044[address]- 5886 Dec, [facility] [id number] [place] [address] 35649- 7689 Dec, [facility] [id number] [place] [address] 47861- 9847 Dec, [facility] [id number] [place] [address]- 1347 November, [facility] [id number] [place] [address] 51793- 2194 November, [facility] [id number] [place] [address] 20587- 8285 November, Shortness of breath 786.05 [facility] [id number] [place] [address] 47092- 7094 November, Rheumatoid arthritis 714.0 [facility] [id number] [place] [address] 34985- 1930 November, 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 [facility] [id number] [place] [address] 8[address]- 8065 November, Neuropathy 355.9 ; Insomnia 780.52 ; Dysthymia 300.4 ; Shortness of breath 786.05 ; Rheumatoid arthritis 714.0 and Nausea 787.02 [facility] [id number], [place] [address]- 9508 November, [facility] [id number] [place] [address] 72[address]- 4360 November, [facility] [place] [facility] [address] [id number] [place] [address]- 1867 Oct, [facility] [place] [facility] [address] [id number] [place] [address]- 0841 Oct, [facility] [place] [facility] [address] [id number] [place] [address]- 0685 Oct, [facility] [place] [facility] [address] [id number] [place] [address]- 2141 Oct, [facility] [place] [facility] [address] [id number] [place] [address]- 7193 Sep, [facility] [place] [facility] [address] [id number] [place] [address]- 2267 Sep, [facility] [place] [facility] [address] [facility] [id number] [place] [address]- 0679 Sep, [facility] [place] [facility] [address] [id number] [place] [address]- 3518 Sep, [facility] [place] [facility] [address] [id number] [place] [address]- 2706 Sep, [facility] [place] [facility] [address] [facility] [id number] [place] [address]- 7944 Sep, [facility] [place] [facility] [address] [id number] [place] [address]- 5317 Sep, [facility] [place] [facility] [address] [id number] [place] [address]- 2988 Sep, [facility] [place] [facility] [address] [id number] [place] [address]- 1907 Aug, [facility] [place] [facility] [address] [id number] [place] [address]- 4835 Aug, [facility] [place] [facility] [address] [id number] [place] [address]- 9783 Aug, [facility] [place] [facility] [address] [id number] [place] [address]- 6679 Aug, [facility] [place] [facility] [address] [id number] [place] [address]- 5653 Aug, [facility] [place] [facility] [address] [id number] [place] [address]- 2606 Aug, [facility] [place] [facility] [address] [id number] [place] [address]- 7958 Jul, [facility] [place] [facility] [address] [id number] [place] [address]- 3331 Jul, [facility] [place] [facility] [address] [id number] [place] [address]- 4917 Jul, [facility] [place] [facility] [address] [id number] [place] [address]- 6945 Jul, [facility] [place] [facility] [address] [id number] [place] [address]- 5180 Jul, [facility] [place] [facility] [address] [id number] [place] [address]- 5317 Jul, [facility] [place] [facility] [address] [id number] [place] [address]- 9338 Jul, [facility] [place] [facility] [address] [id number] [place] [address]- 4151 Jul, [facility] [place] [facility] [address] [id number] [place] [address]- 7863 Jul, [facility] [place] [facility] [address] [id number] [place] [address]- 3538 Jul, [facility] [place] [facility] [address] [id number] [place] [address]- 7876 Jun, [facility] [place] [facility] [address] [id number] [place] [address]- 1897 Jun, [facility] [place] [facility] [address] [id number] [place] [address]- 1346 Jun, [facility] [place] [facility] [address] [id number] [place] [address]- 5581 Jun, [facility] [place] [facility] [address] [id number] [place] [address]- 4246 Jun, [facility] [place] [facility] [address] [id number] [place] 2230 Jun, [facility] [place] [facility] [address] [id number] [place] [address]- 5952 Jun, [facility] [place] [facility] [address] [id number] [place] [address]- 2332 Jun, [facility] [place] [facility] [address] [id number] [place] [address]- 8382 Jun, [facility] [place] [facility] [address] [id number] [place] [address]- 5277 Jun, [facility] [place] [facility] [address] [id number] [place] [address]- 4583 Jun, [facility] [place] [facility] [address] [id number] [place] [address]- 5405 Jun, [facility] [place] [facility] [address] [id number] [place] [address]- 8851 Jun, [facility] [place] [facility] [address] [id number] [place] [address]- 6668 Jun, [facility] [place] [facility] [address] [id number] [place] [address]- 6282 Jun, [facility] [place] [facility] [address] [id number] [place] [address]- 8492 Jun, [facility] [place] [facility] [address] [id number] [place] [address]- 7997 May, [facility] [place] [facility] [address] [id number] [place] [address]- 6421 May, [facility] [place] [facility] [address] [id number] [place] [address]- 8221 May, [facility] [place] [facility] [address] [id number] [place] [address]- 9785 May, [facility] [place] [facility] [address] [id number] [place] [address]- 0803 May, [facility] [place] [facility] [address] [id number] [place] [address]- 7294 May, [facility] [place] [facility] [address] [id number] [place] [address]- 4166 May, [facility] [place] [facility] [address] [id number] [place] [address]- 0591 May, [facility] [place] [facility] [address] [id number] [place] [address]- 3538 May, [facility] [place] [facility] [address] [id number] [place] [address]- 9749 Apr, [facility] [place] [facility] [address] [id number] [place] [address]- 6748 Apr, [facility] [place] [facility] [address] [id number] [place] [address]- 1603 Apr, [facility] [place] [facility] [address] [id number] [place] [address]- 2250 Apr, [facility] [place] [facility] [address] [id number] [place] [address]- 6757 Apr, [facility] [place] [facility] [address] [id number] [place] [address]- 2539 Apr, [facility] [place] [facility] [address] [id number] [place] [address]- 3666 Apr, [facility] [place] [facility] [address] [id number] [place] [address]- 6672 Apr, [facility] [place] [facility] [address] [id number] [place] [address]- 4032 Apr, [facility] [place] [facility] [address] [id number] [place] [address]- 2958 Apr, [facility] [place] [facility] [address] [id number] [place] [address]- 1857 Apr, [facility] [place] [facility] [address] [id number] [place] [address]- 8414 Apr, [facility] [place] [facility] [address] [id number] [place] [address]- 2923 Mar, [facility] [place] [facility] [address] [id number] [place] [address]- 7396 Mar, [facility] [place] [facility] [address] [id number] [place] [address]- 8737 Mar, [facility] [place] [facility] [address] [id number] [place] [address]- 1360 Mar, [facility] [place] [facility] [address] [id number] [place] [address]- 2622 Mar, [facility] [place] [facility] [address] [id number] [place] [address]- 0524 Mar, [facility] [place] [facility] [address] [id number] [place] [address]- 1990 Mar, [facility] [place] [facility] [address] [id number], [place] [address]- 9934 Mar, [facility] [place] [facility] [address] [id number], [place] [address]- 9957 Mar, [facility] [place] [facility] [address] [id number] [place] [address]- 4417 Mar, [facility] [place] [facility] [address] [id number] [place] [address]- 4905 Feb, [facility] [place] [facility] [address] [id number], [place] [address]- 0241 Feb, [facility] [place] [facility] [address] [id number], [place] [address]- 5442 Feb, [facility] [place] [facility] [address] [id number] [place] [address]- 5679 Feb, [facility] [place] [facility] [address] [id number] [place] [address]- 7521 Feb, [facility] [place] [facility] [address] [id number] [place] [address]- 4992 Feb, [facility] [place] [facility] [address] [id number] [place] [address]- 4550 Feb, [facility] [place] [facility] [address] [id number] [place] [address]- 3946 Feb, [facility] [place] [facility] [address] [id number] [place] [address]- 2255 Feb, [facility] [place] [facility] [address] [id number] [place] [address]- 9240 Feb, [facility] [place] [facility] [address] [id number] [place] [address]- 4728 Feb, [facility] [place] [facility] [address] [id number] [place] [address]- 4820 Feb, [facility] [place] [facility] [address] [id number] [place] [address]- 5905 Feb, [facility] [place] [facility] [address] [id number] [place] [address]- 4035 Feb, [facility] [place] [facility] [address] [id number] [place] [address]- 1680 Feb, [facility] [place] [facility] [address] [id number] [place] [address]- 3711 Feb, [facility] [place] [facility] [address] [id number] [place] [address]- 4705 Jan, [facility] [place] [facility] [address] [id number] [place] [address]- 1000 Jan, [facility] [place] [facility] [address] [id number] [place] [address]- 8593 16 Jan, 2014 [facility] [place] [facility] [address] [id number] [place] [address]- 5510 16 Jan, 2014 [facility] [place] [facility] [address] [id number] [place] [address]- 1068 Jan, [facility] [place] [facility] [address] [id number] [place] [address]- 6355 Jan, [facility] [place] [facility] [address] [id number] [place] [address]- 0159 Dec, [facility] [place] [facility] [address] [id number] [place] [address]- 8794 Dec, [facility] [place] [facility] [address] [id number] [place] [address]- 5749 Dec, [facility] [place] [facility] [address] [id number] [place] [address]- 0639 Dec, [facility] [place] [facility] [address] [id number] [place] [address]- 3157 Dec, [facility] [place] [facility] [address] [id number] [place] [address]- 5301 Dec, [facility] [place] [facility] [address] [id number] [place] [address]- 1883 Dec, [facility] [place] [facility] [address] [id number] [place] [address]- 6347 Dec, [facility] [place] [facility] [address] [id number] [place] [address]- 8087 November, [facility] [place] [facility] [address] [id number] [place] [address]- 0333 November, [facility] [place] [facility] [address] [id number] [place] [address]- 8691 November, [facility] [place] [facility] [address] [id number] [place] [address]- 8052 November, [facility] [place] [facility] [address] [id number] [place] [address]- 5698 November, [facility] [place] [facility] [address] [id number] [place] [address]- 8481 November, [facility] [place] [facility] [address] [id number] [place] [address]- 2784 Oct, [facility] [place] [facility] [address] [id number] [place] [address]- 9765 Oct, [facility] [place] [facility] [address] [id number] [place] [address]- 5653 Oct, [facility] [place] [facility] [address] [id number] [place] [address]- 2382 Oct, [facility] [place] [facility] [address] [id number] [place] [address]- 7799 Sep, [facility] [place] [facility] [address] [id number] [place] [address]- 4584 Sep, [facility] [place] [facility] [address] [id number] [place] [address]- 0717 Sep, [facility] [place] [facility] [address] [id number] [place] [address]- 6057 Sep, [facility] [place] [facility] [address] [id number] [place] [address]- 7362 Sep, [facility] [place] [facility] [address] [id number] [place] [address]- 6952 Sep, [facility] [place] [facility] [address] [id number] [place] [address]- 7331 Aug, [facility] [place] [facility] [address] [id number] [place] [address]- 7172 Aug, [facility] [place] [facility] [address] [id number] [place] [address]- 6322 Aug, [facility] [place] [facility] [address] [id number] [place] [address]- 9330 13 Aug, 2013 [facility] [address] [id number] [place] [address]- 8856 Aug, [facility] [place] [facility] [address] [id number] [place] [address]- 4076 Aug, [facility] [address] [id number] [place] [address]- 6436 Jul, [facility] [place] [facility] [address] [id number] [place] [address]- 9590 Jul, [facility] [address] [id number] [place] [address]- 1447 Jul, [facility] [address] [id number] [place] [address]- 4998 Jul, [facility] [address] [id number] [place] [address]- 6531 Jul, [facility] [address] [id number] [place] [address]- 7733 Jul, [facility] [place] [facility] [address] [id number] [place] [address]- 1421 Jul, [facility] [address] [id number] [place] [address]- 0828 Jul, [facility] [place] [facility] [address] [id number] [place] [address]- 7257 Jul, [facility] [place] [facility] [address] [id number] [place] [address]- 1557 Jul, [facility] [place] [facility] [address] [id number] [place] [address]- 4813 Jul, [facility] [place] [facility] [address] [id number] [place] [address]- 0826 Jul, [facility] [place] [facility] [address] [id number] [place] [address]- 7234 Jul, [facility] [address] [id number] [place] [address]- 0091 Jul, [facility] [place] [facility] [address] [id number] [place] [address]- 2656 Jul, [facility] [place] [facility] [address] [id number] [place] [address]- 6719 Jun, [facility] [place] [facility] [address] [id number] [place] [address]- 0386 Jun, [facility] [place] [facility] [address] [id number] [place] [address]- 8317 Jun, [facility] [place] [facility] [address] [id number] [place] [address]- 8806 Jun, [facility] [place] [facility] [address] [id number] [place] [address]- 7565 May, [facility] [place] [facility] [address] [id number] [place] [address]- 5784 May, [facility] [address] [id number] [id number] May, [facility] [place] [facility] [address] [id number] [place] [address]- 8286 May, [facility] [place] [facility] [address] [id number] [place] [address]- 3976 May, [facility] [place] [facility] [address] [id number], [place] [address]- 2546 May, [facility] [place] [facility] [address] [id number] [place] [address]- 2546 May, [facility] [place] [facility] [address] [id number] [place] [address]- 2546 May, [facility] [place] [facility] [address] [id number] [place] [address]- 2546 May, [facility] [address] [id number] [id number] May, [facility] [address] [facility] [id number] [place] [address]- 2546 May, [facility] [address] [facility] [id number] [place] [id number] May, [facility] [address] [facility] [id number] [place] [address] May, [facility] [address] [facility] [id number] [id number] May, [facility] [address] [facility] [id number], [place] [address] May, IMMUNIZATIONS No Known Immunizations SOCIAL HISTORY Never Assessed REASON FOR VISIT [employer] PLAN OF CARE VITAL SIGNS MEDICATIONS Unknown [...] leukocytosis--[facility] 01/08/16 Hospitalization History pseudomemranous colitis, sepsis--[facility] 04/21/2016 Hospitalization History C Diff--[facility] 05/10/2016 Hospitalization History sepsis, pneumonia, diarrhea--[facility] 06/11/16 Hospitalization History recurrent cdiff, pneumonia-[facility] 07/22/16 Hospitalization History sepsis,pneumonia- [facility]
--- NOTE | 2018-03-18 23:30 | Consultation ---
History of Present Illness History of Present Illness Patient Consulted On(alexa/time) 03/18/18 23:23 Time Seen by Provider: 17:50 History of Present Illness Surgery asked to see pt regarding G-tube and foreign object eroding into skin. HPI per ED: Here with pain around the feeding tube site. She had that placed about 6 weeks ago and has some area of tenderness on the right lateral aspect just under the holding disc. No significant drainage although it is red and tender. Also feels full or bloated. Family feels like she is not having any bowel movements. She is taking her feeds well and the feeding tube is working right. Also complains of some low back pain that is chronic. Timing/Duration: 2-3 Days, Getting Worse Severity/Quality: Mild, Moderate Location: Epigastric Radiation: No Radiation Activities at Onset: None Associated Symptoms: Back Pain; No Fever/Chills, No Nausea/Vomiting, No Weakness When I saw the pt, she stated she had just started taking PO food; which may contribute to her abdominal pain. She stated there were "3 buttons around the g -tube, but 2 of them fell off around a week ago, not at the same time, day or so apart". Allergies and Home Medications Allergies Coded Allergies: levofloxacin (Verified Allergy, Severe, C-DIFF, 12/17/16) ceftriaxone (Verified Allergy, Unknown, 12/17/16) Home Medications Albuterol Sulfate 2.5 Mg/3 Ml Vial.neb, 2.5 MG NEB Q6H PRN for SHORTNESS OF BREATH, (Reported) Alprazolam 0.5 Mg Tablet, 0.5 MG PO HS, (Reported) Apixaban 5 Mg Tablet, 5 MG PO BID . Prescribed by: PALOMO SALAZAR on 12/03/17 1429 Ascorbate Calcium 500 Mg Tablet, 1,000 MG PO DAILY, (Reported) Aspirin 81 Mg Tablet.dr, 81 MG PO HS, (Reported) Azithromycin 250 Mg Tablet, 250 MG PO DAILY Prescribed by: JAMES MENDEZ on 04/13/17 111 Budesonide/Formoterol Fumarate 10.2 Gm Hfa.aer.ad, 2 PUFF PO BID, (Reported) Cefpodoxime Proxetil 200 Mg Tablet, 200 MG PO BID Prescribed by: JAMES MENDEZ on 04/13/17 111 Cetirizine HCl 10 Mg Tablet, 10 MG PO DAILY, (Reported) Cholecalciferol (Vitamin D3) 1,000 Unit Tablet, 1,000 UNIT PO DAILY, (Reported) Diclofenac Sodium 100 Gm Gel..gram., TP BID, (Reported) Diltiazem HCl 240 Mg Cap.er.24h, 240 MG PO DAILY . Prescribed by: PALOMO SALAZAR on 12/03/17 1429 Doxepin HCl 25 Mg Capsule, 25 MG PO HS, (Reported) Esomeprazole Magnesium 40 Mg Cap, 40 MG PO DAILY, (Reported) Etanercept 50 Mg/1 Ml Syringe, 50 MG INJ Tu, (Reported) Gabapentin 300 Mg Capsule, 600 MG PO TID, (Reported) TAKES 2 (300MG) CAPSULES L.acidoph & Paracasei,B.lactis 1 Each Capsule, 1 CAP PO BID, (Reported) Metoprolol Tartrate 25 Mg Tablet, 12.5 MG PO BID Prescribed by: JAMES MENDEZ on 04/13/17 1113 Montelukast Sodium 10 Mg Tablet, 10 MG PO HS, (Reported) Multivitamin 1 Each Tab.chew, 2 TAB.CHEW PO DAILY, (Reported) Oxycodone HCl/Acetaminophen 1 Each Tablet, 1 TAB PO TID PRN for PAIN-MODERATE, ( Reported) Pravastatin Sodium 10 Mg Tablet, 10 MG PO HS, (Reported) Prednisone 10 Mg Tab.ds.pk, 10 MG PO DAILY Take 6 tabs(60mg)daily,decrease by 1 tab(10MG)daily. Prescribed by: JAMES MENDEZ on 04/13/17 1113 Ranitidine HCl 150 Mg Tablet, 150 MG PO BID, (Reported) Sertraline HCl 50 Mg Tablet, 50 MG PO DAILY, (Reported) Tiotropium [place] 4 Gm Mist.inhal, 2.5 MCG PO DAILY, (Reported) Verapamil HCl 120 Mg Tablet.er, 120 MG PO DAILY, (Reported) Patient Home Medication List Home Medication List Reviewed: Yes Past Ffhxswb-Kyzjuf-Dabpld Hx Patient Social History Alcohol Use: Denies Use Recreational Drug Use: No Smoking Status: Former Smoker Former Smoker, Quit: Dec 11, 2014 Type Used: Cigarettes 2nd Hand Smoke Exposure: No Recent Foreign Travel: No Contact w/Someone Who Travel: No Recent Infectious Disease Expo: No Recent Hopitalizations: No Immunizations Up To Date Tetanus Booster (TDap): Unknown PED Vaccines UTD: Yes Date of Pneumonia Vaccine: Aug 05, 2013 Date of Influenza Vaccine: Apr 13, 2017 Seasonal Allergies Seasonal Allergies: Yes Surgeries History of Surgeries: Yes (THROAT RELATED TO BIOPSY, FEEDING TUBE, R HIP, R TKR , L FOOT) Surgeries: Joint Replacement, Orthopedic, Vascular Surgery Respiratory History of Respiratory Disorde: Yes (O2 2L NC AT NIGHT AND PRN) Respiratory Disorders: Pneumonia, Chronic Bronchitis, COPD, Emphysema Cardiovascular History of Cardiac Disorders: Yes (CAROTID DISEASE--COMPLETE OCCLUSION OF LEFT CAROTID) Cardiac Disorders: High Cholesterol, Hypertension, Peripheral Vascular Neurological History of Neurological Disord: Yes (DYSPHAGIA, DYSARTHRIA; RIGHT SIDE WEAKNESS --POST CVA) Neurological Disorders: Dementia, Stroke Reproductive System Hx Reproductive Disorders: No Sexually Transmitted Disease: No HIV/AIDS: No Female Reproductive Disorders: Denies 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 ) Musculoskeletal Disorders: Arthritis, Rheumatoid Arthritis Endocrine History of Endocrine Disorders: No HEENT History of HEENT Disorders: Yes (GLASSES) HEENT Disorders: Dysphagia, Tinnitis Loss of Vision: Bilateral Hearing Impairment: Denies Cancer History of Cancer: No Psychosocial History of Psychiatric Problem: Yes Behavioral Health Disorders: Sleep Difficulties, Anxiety, Depression Integumentary History of Skin or Integumenta: No Blood Transfusions History of Blood Disorders: No Adverse Reaction to a Blood Tr: No Family Medical History Significant Family History: Heart Disease Family Medial History: Cancer 09 SISTER Family history: Arthritis 09 BROTHER 09 SISTER Family history: Cardiovascular disease 09 SISTER Family history: Thyroid disorder 09 SISTER Malignant neoplasm of lung 09 SISTER Review of Systems-General Constitutional: No chills, No diaphoresis EENTM: No blurred vision, No double vision, No epistaxis Respiratory: No cough, No hemoptysis, No short of breath Cardiovascular: No chest pain, No edema, No palpitations Gastrointestinal: abdominal pain, dysphagia; No jaundice Genitourinary: No dysuria, No frequency, No hematuria Skin: No change in color, No change in hair/nails Physical Exam-General Problems Physical Exam Vital Signs Vital Signs - First Documented 03/18/18 17:08 Temp 98.6 Pulse 68 Resp 16 B/P (MAP) 139/58 (85) Pulse Ox 95 Capillary Refill : Less Than 3 Seconds General Appearance: WD/WN, no apparent distress Eyes: Bilateral Eye PERRL, Bilateral Eye EOMI HEENT: No scleral icterus (R), No scleral icterus (L); other (recent neck surgery, scar at about thyroid level, c/d/i) Respiratory: chest non-tender, lungs clear, normal breath sounds, no respiratory distress, no accessory muscle use Cardiovascular: regular rate, rhythm, no edema, no murmur Gastrointestinal: normal bowel sounds, soft, no organomegaly, other (pt has g- tube which looks ok but needed to be pulled more snug, at the 9 o'clock position just under g-tube ring was a foreign object that appears to have eroded into the abdominal wall. 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 Able to grab with hemostat and pull above skin level to then cut suture. G-tube appears functional, did pull up a little tighter to skin. Pt ok to be sent home; believe the abdominal pain is just due to the newly added PO intake and the erosion from "button". Pt will be sent home with iodophor packing to allow the wound to heal by secondary intent. She can call my office to have me follow, can go back to surgeon at [facility] or f/u in ER. JEANNE EASON DO Mar 18, 2018 23:30
== END 2018-03-18 18:25 | disposition home or self-care (01) ==
LOC: EDUNIT# 16:38 → ER 16:39
DX: T81.4XXA Infection following a procedure, initial encounter (principal); K59.00 Constipation, unspecified; J43.9 Emphysema, unspecified; I73.9 Peripheral vascular disease, unspecified; I10 Essential (primary) hypertension; K21.9 Gastro-esophageal reflux disease without esophagitis; F03.90 Unspecified dementia, unspecified severity, without behavioral disturbance, psychotic disturbance, mood disturbance, and anxiety; E78.00 Pure hypercholesterolemia, unspecified; M06.9 Rheumatoid arthritis, unspecified; F41.9 Anxiety disorder, unspecified; F32.9 Major depressive disorder, single episode, unspecified; Z87.19 Personal history of other diseases of the digestive system; Z86.73 Personal history of transient ischemic attack (TIA), and cerebral infarction without residual deficits; Z80.0 Family history of malignant neoplasm of digestive organs; Z80.1 Family history of malignant neoplasm of trachea, bronchus and lung; Z89.432 Acquired absence of left foot; Z86.010 Personal history of colon polyps; Z93.1 Gastrostomy status; Z88.8 Allergy status to other drugs, medicaments and biological substances; Z79.01 Long term (current) use of anticoagulants; Z79.51 Long term (current) use of inhaled steroids; Z87.01 Personal history of pneumonia (recurrent); Z79.82 Long term (current) use of aspirin; Z79.52 Long term (current) use of systemic steroids; Z87.891 Personal history of nicotine dependence; Z96.651 Presence of right artificial knee joint; Z96.641 Presence of right artificial hip joint
CPT/HCPCS: 74022

== ENCOUNTER → 2018-04-06 | Day surgery (SDC) | payer MEDICARE, MEDICAID ==
[~2018-04-06] VITALS: Ht 160 cm; Wt 81.6 kg
[~2018-04-06] MED LIST changes: +LIDOCAINE 1% INJ 20 ML 20 ML VIAL ONE
[2018-04-06 08:27] VITALS: BP 134/75
--- NOTE | 2018-04-06 10:00 | Cardiac Procedure Note-CS/ASA ---
Pre-Procedure Note Pre-Op Procedure Note H&P Reviewed The H&P was reviewed, patient examined and no changes noted. Date H&P Reviewed: Apr 06, 2018 Time H&P Reviewed: 09:40 Conscious Sedation Pre-Proced Time 09:40 ASA Score 3 For ASA 3 and 4: Consider anesthesia and medical clearance. Also, for patients with a history of failed moderate sedation consider anesthesia. Airway Lungs Heart ASA score ASA 1: a normal healthy patient ASA 2: a patient with a mild systemic disease (mid diabetes, controlled hypertension, obesity ASA 3: a patient with a severe systemic disease that limits activity (angina , COPD, prior Myocardial infarction) ASA 4: a patient with an incapacitating disease that is a constant threat to life (CHF, renal failure) ASA 5: a moribund patient not expected to survive 24 hrs. (ruptured aneurysm) ASA 6: a declared brain patient whose organs are being harvested. For emergent operations, add the letter E after the classification Mallampati Classification Grade 2 Sedation Plan Analgesia, Amnesia, Plan communicated to team members, Discussed options with patient/fam, Discussed risks with patient/fam The patient is an appropriate candidate to undergo the planned procedure, sedation, and anesthesia. The patient immediately re-assessed prior to indication. SKYLAR LOPEZ MD FACP FAC CCDS Apr 06, 2018 10:00
--- NOTE | 2018-04-06 10:03 | Discharge Inst-Cardiology ---
Discharge Inst-Cardiac Discharge Medications Continued Medications: Albuterol Sulfate (Albuterol Sulfate) 2.5 Mg/3 Ml Vial.neb 2.5 MG NEB Q6H PRN for SHORTNESS OF BREATH, EA Alprazolam (Xanax) 0.5 Mg Tablet 0.5 MG PO HS, TAB Apixaban (Eliquis) 5 Mg Tablet 5 MG PO BID, #20 TAB . Ascorbate Calcium (Vitamin C) 500 Mg Tablet 1000 MG PO DAILY, TAB Aspirin (Aspirin EC) 81 Mg Tablet.dr 81 MG PO HS, TAB Azithromycin (Azithromycin) 250 Mg Tablet 250 MG PO DAILY, #2 TAB 0 Refills Budesonide/Formoterol Fumarate (Symbicort 160-4.5 Mcg Inhaler) 10.2 Gm Hfa.aer.ad 2 PUFF PO BID, INHALER Cefpodoxime Proxetil (Cefpodoxime Proxetil) 200 Mg Tablet 200 MG PO BID for 5 Days, #10 TAB 0 Refills Cetirizine HCl (Cetirizine HCl) 10 Mg Tablet 10 MG PO DAILY, TAB Cholecalciferol (Vitamin D3) (Vitamin D3) 1,000 Unit Tablet 1000 UNIT PO DAILY, TAB Diclofenac Sodium (Voltaren) 100 Gm Gel..gram. TP BID, TUBE Diltiazem HCl (Cardizem Cd) 240 Mg Cap.er.24h 240 MG PO DAILY, #30 CAP . Doxepin HCl (Doxepin HCl) 25 Mg Capsule 25 MG PO HS, CAP Esomeprazole Magnesium (Nexium) 40 Mg Cap 40 MG PO DAILY, CAP Etanercept (Enbrel) 50 Mg/1 Ml Syringe 50 MG INJ Tu, EA Gabapentin (Gabapentin) 300 Mg Capsule 600 MG PO TID, CAP TAKES 2 (300MG) CAPSULES L.acidoph & Paracasei,B.lactis (Probiotic) 1 Each Capsule 1 CAP PO BID, CAP Metoprolol Tartrate (Metoprolol Tartrate) 25 Mg Tablet 12.5 MG PO BID, #60 TAB 1 Refill Montelukast Sodium (Montelukast Sodium) 10 Mg Tablet 10 MG PO HS, TAB Multivitamin (Gummi Bear Multivitamin) 1 Each Tab.chew 2 TAB.CHEW PO DAILY, TAB Oxycodone HCl/Acetaminophen (Oxycodone-Acetaminophen 5-325) 1 Each Tablet 1 TAB PO TID PRN for PAIN-MODERATE, TAB Pravastatin Sodium (Pravastatin Sodium) 10 Mg Tablet 10 MG PO HS, TAB Prednisone (Prednisone) 10 Mg Tab.ds.pk 10 MG PO DAILY, #21 PKG 0 Refills Take 6 tabs(60mg)daily,decrease by 1 tab(10MG)daily. Ranitidine HCl (Ranitidine HCl) 150 Mg Tablet 150 MG PO BID, TAB Sertraline HCl (Sertraline HCl) 50 Mg Tablet 50 MG PO DAILY, TAB Tiotropium [place] (Spiriva Respimat 2.5MCG/ACTUATION) 4 Gm Mist.inhal 2.5 MCG PO DAILY, INHALER Verapamil HCl (Verapamil ER) 120 Mg Tablet.er 120 MG PO DAILY, TAB Patient Instructions Patient Instructions: F/u at Dr Fong'shabnam for wound inspection on 04/09/18 F/u at Dr Fong'shabnam of doctor visit in 2 weeks SKYLAR FONG MD FACP [facility] CCDS Apr 06, 2018 10:03
--- NOTE | 2018-04-06 14:13 | OPERATIVE REPORT ---
DATE OF SERVICE: 04/06/2018 PREOPERATIVE DIAGNOSIS: Palpitations. POSTOPERATIVE DIAGNOSIS: Palpitations. PROCEDURE: Implantable loop recorder implantation. INDICATIONS: The patient is a 67-year-old lady who has a longstanding history of AV jovan reentrant tachycardia that was treated with ablation at [facility] in 01/2018. Implantable loop recorder implantation was recommended by Dr. Ruiz, her senior salesforce developer, for any other arrhythmia or any recurrent arrhythmia. Informed consent was obtained. DESCRIPTION OF PROCEDURE: The procedure was carried out today. [facility] The left prepectoral area was prepared and draped in the usual sterile fashion. Lidocaine 1% local anesthesia. The tools provided with the TIKI.VN Reveal LINQ device were used to make a subcutaneous pocket anterior to the fourth intercostal space into which the device was placed and the edges of the wound were closed using Dermabond and Steri-Strips. The serial number of the device is [id number]. The patient tolerated the procedure well. Job ID: [id number] DocumentID: [id number] Dictated Date: 04/06/2018 10:08:00 Home Mission Worker Date: 04/06/2018 14:13:28 Dictated By: SKYLAR LOPEZ MD, MA, FACP, FACC,
== END | disposition home or self-care (01) ==
LOC: CATH 07:56
PROVIDERS: ATTEND Internal Medicine Cardiovascular Disease
DX: R00.2 Palpitations (principal); I73.9 Peripheral vascular disease, unspecified; E11.9 Type 2 diabetes mellitus without complications; I69.322 Dysarthria following cerebral infarction; I69.351 Hemiplegia and hemiparesis following cerebral infarction affecting right dominant side; J44.9 Chronic obstructive pulmonary disease, unspecified; E66.9 Obesity, unspecified; Z68.31 Body mass index [BMI] 31.0-31.9, adult; Z79.01 Long term (current) use of anticoagulants; Z79.82 Long term (current) use of aspirin; Z79.899 Other long term (current) drug therapy; Z87.891 Personal history of nicotine dependence; Z95.820 Peripheral vascular angioplasty status with implants and grafts; Z86.718 Personal history of other venous thrombosis and embolism
CPT/HCPCS: 33282

== ENCOUNTER → 2018-08-18 | Outpatient (CLI) | payer MEDICARE, MEDICAID ==
[~2018-08-18] MED LIST changes: -GABA600T2 PO; +GBPN600T PO; -LIDOCAINE 1% INJ 20 ML 20 ML VIAL ONE; +METR-145 PO; -METR500T21 PO
== END ==
LOC: CARD 12:49
PROVIDERS: ATTEND Nurse Practitioner Family
DX: I48.3 Typical atrial flutter (principal); I08.1 Rheumatic disorders of both mitral and tricuspid valves
CPT/HCPCS: 93306

== ENCOUNTER 2018-09-02 10:27 | Emergency (ER) | payer MEDICARE, MEDICAID ==
[~2018-09-02] VITALS: Ht 157.5 cm; Wt 86.2 kg
--- OUTSIDE RECORDS SUMMARY | 2018-09-02 10:35 | XMS REPORT | Encounter Summary ---
Author Author [facility] Organization [facility] Address Unknown Phone Unavailable Care Team Providers Care Cane Flume Feeding Machine Operator Name Role Phone Darling Cespedes DO Unavailable Unavailable Herman Castrejon PHARMD Unavailable Unavailable Didi Louie APRN PCP Reason for Visit * Reason Comments Survivorship Pt. here for EOT Encounter Details Care Team Description Date Type Department Herman Ramos PA-C [address] [facility] [address] [place] [address] Oral cancer (HCC) (Primary Dx) 06/11/2018 Office Visit [facility] - ENT [address] [place] [address] Social History Date Tobacco Use Types Packs/Day Years Used Quit: 05/28/2015 Former Smoker Cigarettes 2 20 Smokeless Tobacco: Never Used Alcohol Use Drinks/Week oz/Week Comments No used to have 10-12 beers/day;10 shots/week quit 2003 Sex Assigned at Date Recorded Not on file Industry Job Start Date Occupation Not on file Not on file Not on file Travel End Travel History Travel Start No recent travel history available. as of this encounter Last Filed Vital Signs Time Taken Vital Sign Reading 06/11/2018 1:52 PM SOLAR PANEL TECHNICIAN Blood Pressure 114/61 06/11/2018 1:52 PM SOLAR PANEL TECHNICIAN Pulse 63 - Temperature - - Respiratory Rate - - Oxygen Saturation - - Inhaled Oxygen - Concentration - Weight - - Height - - Body Mass Index - in this encounter Functional Status Date of Assessment Functional Status Response 02/16/2018 Does the patient have a hearing impairment: No as of this encounter Progress Notes * Herman Ramos PA-C - 06/11/2018 2:30 PM SOLAR PANEL TECHNICIAN Date of Service: 06/11/2018 Subjective: Lona Coburn is a 68 y.o. female. History of Present IllnessPt. here for EOT. Pt. seeing Dr. Russo today for routine cancer surveillance so please refer to his note for more detail. Review of Systems Objective: acetaminophen (TYLENOL) 160 mg/5 mL oral solution Take 20.3 mL via feeding tube every 4 hours as needed. Max of 4,000 mg of acetaminophen in 24 hours. apixaban (ELIQUIS) 5 mg tablet Take 5 [...] mg under the skin every 7 days. fluconazole (DIFLUCAN) 100 mg tablet Take one tablet by mouth daily. Lactobacillus acidophilus (PROBIOTIC PO) Take by mouth twice daily. magnesium oxide (MAG-OX) 400 mg tablet Take 1 tablet by mouth daily. montelukast (SINGULAIR) 10 mg tablet Take 10 mg by mouth at bedtime daily. oxyCODONE/acetaminophen (PERCOCET; ENDOCET; ROXICET) 5/325 mg tablet Take one tablet via feeding tube every 4 hours as needed pravastatin (PRAVACHOL) 10 mg tablet Take one tablet by mouth at bedtime daily. Per feeding tube ranitidine(+) (ZANTAC) 150 mg tablet Take 150 mg by mouth twice daily. senna/docusate (SENOKOT-S) 8.6/50 mg tablet one tablet by Per G Tube route twice daily as needed. sertraline (ZOLOFT) 50 mg tablet Take 50 mg by mouth daily. SPIRIVA RESPIMAT 2.5 mcg/actuation inhaler Inhale 1 puff by mouth into the lungs daily. SYMBICORT 160-4.5 mcg/actuation inhalation Inhale 2 puffs by mouth into the lungs twice daily. traZODone (DESYREL) 50 mg tablet Take 100 mg by mouth at bedtime as needed for Sleep. Vitals: 06/11/18 1352 BP: 114/61 Pulse: 63 There is no height or weight on file to calculate BMI. Physical Exam Alert Assessment and Plan: SCP given to pt. today. Follow up with Dr. Russo per his recommendations. Treatment Summary for Oral cancer (HCC) Herman Ramos PA-C 06/11/2018 12:54 PM Cancer Treatment Summary Provided by Herman Ramos PA-C on 06/11/2018 General Information Patient Name Lona Coburn (home) Date of 1950 Age 68 y.o. Support Contact Extended Emergency Contact Information Primary Emergency Contact: Jaclyn Perea Address: [address] [place] [address] Mobile Relation: Daughter Care Team Patient Care Team: Didi Louie APRN as PCP - General (Nurse Practitioner) Darling Cespedes DO (Vascular Surgery) Herman Castrejon, PHARMD Dr. Hesham Ramos PA-C Cancer Diagnosis Information Symptoms/Signs noticed red bumps and painful area under tongue Diagnosis Oral cancer (HCC) Diagnosis Date 01/02/18 Staging Information Cancer Staging Oral cancer (HCC) Staging form: Oral Cavity, AJCC 8th Edition - Pathologic stage from 02/15/2018: Stage I (pT1, pN0, cM0) - Signed by Herman Ramos PA-C on 06/11/2018 Tumor & Prognostic Markers HPV negative No results found for: BR153, [id number], [id number] Genomic Testing None Surgical Procedure: Location/Findings Past Surgical History: Procedure Laterality Date ABLATION OF DYSRHYTHMIC FOCUS 01/2018 LYMPHADENECTOMY Bilateral 02/15/2018 CERVICAL LYMPHADENECTOMY performed by Hesham Russo MD at [facility] OR/Periop NECK SURGERY N/A 02/15/2018 COMPOSITE RESECTION WITH NECK DISSECTION performed by Hesham Russo MD at [facility] OR/Periop FOOT AMPUTATION Left partial HIP REPLACEMENT Right HX APPENDECTOMY HX SURGERY stent iliac artery KNEE REPLACEMENT Right TUBAL LIGATION Tumor Type/Histology/Grade Invasive squamous cell carcinoma, moderately to poorly differentiated Background Information Family History/predisposing conditions Family History Problem Relation Age of Onset Heart Attack Mother Gout Sister Gout Brother Genetic Testing None Social History Social History Substance Use Topics Smoking status: Former Smoker Packs/day: 2.00 Years: 20.00 Types: Cigarettes Quit date: 05/28/2015 Smokeless tobacco: Never Used Alcohol use No Comment: used to have 10-12 beers/day;10 shots/week quit 2003 Treatment Summary Pt. had biopsy on 01/02/[address] Russo for consultation on 01/29/18. She is now s/p FOM resection, partial glossectomy, complex vestibuloplasty and bilateral MRND on 02/15/18. Pathology without any residual invasive cancer. 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 Cancer surveillance with Dr. Russo. Pre-Treatment Post-Treatment Height 63" Ht Readings from Last 1 Encounters: 06/11/18 160 cm (63") Weight 192 lbs Wt Readings from Last 1 Encounters: 06/11/18 81.6 kg (180 lb) BSA Estimated body surface area is 1.9 meters squared as calculated from the following: Height as of an earlier encounter on 06/11/18: 160 cm (63"). Weight as of an earlier encounter on 06/11/18: 81.6 kg (180 lb). Lifetime Dosage: N/A Follow-Up & Survivorship Care Future Appointments Date Time Provider Department Center 06/11/2018 1:15 PM [address]-[facility] Radiolog 06/11/2018 2:15 PM [facility] 06/11/2018 2:30 PM Herman Ramos PA-C [facility] ENT 06/11/2018 3:30 PM WALK IN RAD AT INTERVENTIONAL IR Interv Radio Final Diagnosis: A. Outside case "[id number]" (Date collected: 01/02/18): 1. Squamous mucosa, "floor of mouth", biopsy: Invasive squamous cell carcinoma, moderately to poorly differentiated Final Diagnosis: A. 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 ([id number]). --------- LIP AND ORAL CAVITY: Excisional Biopsy, [...] Nodes Involved: N/a Extranodal Extension (GUILLERMO): N/a Preventive Screening Guidelines for Healthy Adults Getting preventive care is one of the most important steps you can take to manage your health. That's because when a condition is diagnosed early, it is usually easier to treat. And regular checkups can help you and your doctor identify lifestyle changes you can make to avoid certain conditions. Please see the screening guidelines below to see if you're up-to-date. Routine Checkups 18-29 years 30-39 years 40-49 years 50-64 years 65+ years Includes personal history; blood pressure; body mass index (BMI); physical exam ; preventive screening; and counseling Annually for ages 1821 Annually Annually Every 13 years, depending on risk factors2 Cancer Screenings Colorectal Cancer Not routine except for patients at high risk2 Colonoscopy at age 50 and then every 10 years, or annual fecal occult blood test (FOBT) plus sigmoidoscopy every 5 years, or sigmoidoscopy every 5 years, or double-contrast barium enema every 5 years Skin Cancer Periodic total skin exams every 3 years at discretion of clinician Annual total skin exam at discretion of clinician Breast Cancer Annual clinical breast exam and monthly self-exam Annual mammography at discretion of clinician Annual mammography Annual mammography at discretion of clinician Cervical Cancer Initiate Pap test at 3 years after first sexual intercourse, or by age 21 every 1-3 years,3 depending on risk factors2 Other Recommended Screenings Body Mass Index (BMI) At discretion of clinician (can be screened annually for overweight and eating disorders, consult the CDC's growth and BMI charts) Blood Pressure (Hypertension) At every acute/nonacute medical encounter and at least once every 2 years Cholesterol Every 5 years or more often at discretion of clinician Diabetes (Type 2) Every 3 years, beginning at age 45 or more often and beginning at a younger age at discretion of clinician Bone Mass Density (BMD) Test Consider your risk factors, discuss with you clinician. BMD testing for all post-menopausal women who have one or more risk factors for osteoporosis fractures. BMD test once, or more often at discretion of clinician Infectious Disease Screening Sexually Transmitted Infections (Chlamydia, Gonorrhea, Syphilis, and HPV) Annual screenings for sexually active patients under 25; annually for patients age 25 and over if at risk2 HPV is for age 26 and under, if not previously vaccinated. Sensory Screenings Eye Exam for Glaucoma At least once. Every 35 years if at risk2 Every 24 years Every 12 years Hearing and Vision Assessment At discretion of clinician Immunizations Tetanus, Diphtheria (Td) 3 doses if not previously immunized. Booster every 10 years Influenza Every year if at high risk2 Annually Pneumococcal If at high risk2 and not previously immunized Once after age 65, even if previously vaccinated Meningococcal (Meningitis) 1 or more doses if not previously immunized, depending on risk factors and other indicators2 Varicella (Chicken Pox) 2 doses given at or after age 13 if susceptible2 R PANEL TECHNICIAN in this encounter Miscellaneous Notes * Survivorship - Herman Ramos PA-C - 06/11/2018 2:30 PM SOLAR PANEL TECHNICIAN Date of Service: 06/11/2018 Subjective: Lona Coburn is a 68 y.o. female. History of Present Illness Pt. here for EOT. Pt. seeing Dr. Russo today for routine cancer surveillance so please refer to his note for more detail. Review of Systems Objective: acetaminophen (TYLENOL) 160 mg/5 mL oral solution Take 20.3 mL via feeding tube every 4 hours as needed. Max of 4,000 mg of acetaminophen in 24 hours. apixaban (ELIQUIS) 5 mg tablet Take 5 [...] mg under the skin every 7 days. fluconazole (DIFLUCAN) 100 mg tablet Take one tablet by mouth daily. Lactobacillus acidophilus (PROBIOTIC PO) Take by mouth twice daily. magnesium oxide (MAG-OX) 400 mg tablet Take 1 tablet by mouth daily. montelukast (SINGULAIR) 10 mg tablet Take 10 mg by mouth at bedtime daily. oxyCODONE/acetaminophen (PERCOCET; ENDOCET; ROXICET) 5/325 mg tablet Take one tablet via feeding tube every 4 hours as needed pravastatin (PRAVACHOL) 10 mg tablet Take one tablet by mouth at bedtime daily. Per feeding tube ranitidine(+) (ZANTAC) 150 mg tablet Take 150 mg by mouth twice daily. senna/docusate (SENOKOT-S) 8.6/50 mg tablet one tablet by Per G Tube route twice daily as needed. sertraline (ZOLOFT) 50 mg tablet Take 50 mg by mouth daily. SPIRIVA RESPIMAT 2.5 mcg/actuation inhaler Inhale 1 puff by mouth into the lungs daily. SYMBICORT 160-4.5 mcg/actuation inhalation Inhale 2 puffs by mouth into the lungs twice daily. traZODone (DESYREL) 50 mg tablet Take 100 mg by mouth at bedtime as needed for Sleep. Vitals: 06/11/18 1352 BP: 114/61 Pulse: 63 There is no height or weight on file to calculate BMI. Physical Exam Alert Assessment and Plan: SCP given to pt. today. Follow up with Dr. Russo per his recommendations. Treatment Summary for Oral cancer (HCC) Herman Ramos PA-C 06/11/2018 12:54 PM Cancer Treatment Summary Provided by Herman Ramos PA-C on 06/11/2018 General Information Patient Name Lona Coburn (home) Date of 1950 Age 68 y.o. Support Contact Extended Emergency Contact Information Primary Emergency Contact: Jaclyn Perea Address: [address] [place] [address] Mobile Relation: Daughter Care Team Patient Care Team: Didi Louie APRN as PCP - General (Nurse Practitioner) Darling Cespedes DO (Vascular Surgery) Herman Castrejon, PHARMD Dr. Hesham Ramos PA-C Cancer Diagnosis Information Symptoms/Signs noticed red bumps and painful area under tongue Diagnosis Oral cancer (HCC) Diagnosis Date 01/02/18 Staging Information Cancer Staging Oral cancer (HCC) Staging form: Oral Cavity, AJCC 8th Edition - Pathologic stage from 02/15/2018: Stage I (pT1, pN0, cM0) - Signed by Herman Ramos PA-C on 06/11/2018 Tumor & Prognostic Markers HPV negative No results found for: BR153, [id number], [id number] Genomic Testing None Surgical Procedure: Location/Findings Past Surgical History: Procedure Laterality Date ABLATION OF DYSRHYTHMIC FOCUS 01/2018 LYMPHADENECTOMY Bilateral 02/15/2018 CERVICAL LYMPHADENECTOMY performed by Hesham Russo MD at [facility] OR/Periop NECK SURGERY N/A 02/15/2018 COMPOSITE RESECTION WITH NECK DISSECTION performed by Hesham Russo MD at [facility] OR/Periop FOOT AMPUTATION Left partial HIP REPLACEMENT Right HX APPENDECTOMY HX SURGERY stent iliac artery KNEE REPLACEMENT Right TUBAL LIGATION Tumor Type/Histology/Grade Invasive squamous cell carcinoma, moderately to poorly differentiated Background Information Family History/predisposing conditions Family History Problem Relation Age of Onset Heart Attack Mother Gout Sister Gout Brother Genetic Testing None Social History Social History Substance Use Topics Smoking status: Former Smoker Packs/day: 2.00 Years: 20.00 Types: Cigarettes Quit date: 05/28/2015 Smokeless tobacco: Never Used Alcohol use No Comment: used to have 10-12 beers/day;10 shots/week quit 2003 Treatment Summary Pt. had biopsy on 01/02/[address] Russo for consultation on 01/29/18. She is now s/p FOM resection, partial glossectomy, complex vestibuloplasty and bilateral MRND on 02/15/18. Pathology without any residual invasive cancer. 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 Cancer surveillance with Dr. Russo. Pre-Treatment Post-Treatment Height 63" Ht Readings from Last 1 Encounters: 06/11/18 160 cm (63") Weight 192 lbs Wt Readings from Last 1 Encounters: 06/11/18 81.6 kg (180 lb) BSA Estimated body surface area is 1.9 meters squared as calculated from the following: Height as of an earlier encounter on 06/11/18: 160 cm (63"). Weight as of an earlier encounter on 06/11/18: 81.6 kg (180 lb). Lifetime Dosage: N/A Follow-Up & Survivorship Care Future Appointments Date Time Provider Department Center 06/11/2018 1:[address] Radiolog 06/11/2018 2:15 PM [facility] 06/11/2018 2:30 PM [facility] 06/11/2018 3:30 PM WALK IN RAD AT INTERVENTIONAL IR Interv Radio Final Diagnosis: A. Outside case "[id number]" (Date collected: 01/02/18): 1. Squamous mucosa, "floor of mouth", biopsy: Invasive squamous cell carcinoma, moderately to poorly differentiated Final Diagnosis: A. 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 ([id number]). --------- LIP AND ORAL CAVITY: Excisional Biopsy, [...] Nodes Involved: N/a Extranodal Extension (GUILLERMO): N/a Preventive Screening Guidelines for Healthy Adults Getting preventive care is one of the most important steps you can take to manage your health. That's because when a condition is diagnosed early, it is usually easier to treat. And regular checkups can help you and your doctor identify lifestyle changes you can make to avoid certain conditions. Please see the screening guidelines below to see if you're up-to-date. Routine Checkups 18-29 years 30-39 years 40-49 years 50-64 years 65+ years Includes personal history; blood pressure; body mass index (BMI); physical exam ; preventive screening; and counseling Annually for ages 1821 Annually Annually Every 13 years, depending on risk factors2 Cancer Screenings Colorectal Cancer Not routine except for patients at high risk2 Colonoscopy at age 50 and then every 10 years, or annual fecal occult blood test (FOBT) plus sigmoidoscopy every 5 years, or sigmoidoscopy every 5 years, or double-contrast barium enema every 5 years Skin Cancer Periodic total skin exams every 3 years at discretion of clinician Annual total skin exam at discretion of clinician Breast Cancer Annual clinical breast exam and monthly self-exam Annual mammography at discretion of clinician Annual mammography Annual mammography at discretion of clinician Cervical Cancer Initiate Pap test at 3 years after first sexual intercourse, or by age 21 every 1-3 years,3 depending on risk factors2 Other Recommended Screenings Body Mass Index (BMI) At discretion of clinician (can be screened annually for overweight and eating disorders, consult the CDC's growth and BMI charts) Blood Pressure (Hypertension) At every acute/nonacute medical encounter and at least once every 2 years Cholesterol Every 5 years or more often at discretion of clinician Diabetes (Type 2) Every 3 years, beginning at age 45 or more often and beginning at a younger age at discretion of clinician Bone Mass Density (BMD) Test Consider your risk factors, discuss with you clinician. BMD testing for all post-menopausal women who have one or more risk factors for osteoporosis fractures. BMD test once, or more often at discretion of clinician Infectious Disease Screening Sexually Transmitted Infections (Chlamydia, Gonorrhea, Syphilis, and HPV) Annual screenings for sexually active patients under 25; annually for patients age 25 and over if at risk2 HPV is for age 26 and under, if not previously vaccinated. Sensory Screenings Eye Exam for Glaucoma At least once. Every 35 years if at risk2 Every 24 years Every 12 years Hearing and Vision Assessment At discretion of clinician Immunizations Tetanus, Diphtheria (Td) 3 doses if not previously immunized. Booster every 10 years Influenza Every year if at high risk2 Annually Pneumococcal If at high risk2 and not previously immunized Once after age 65, even if previously vaccinated Meningococcal (Meningitis) 1 or more doses if not previously immunized, depending on risk factors and other indicators2 Varicella (Chicken Pox) 2 doses given at or after age 13 if susceptible2 R PANEL TECHNICIAN in this encounter Plan of Treatment Not on fileas of this encounter Visit Diagnoses Diagnosis Oral cancer (HCC) - Primary Malignant neoplasm of mouth, unspecified site in this encounter
--- OUTSIDE RECORDS SUMMARY | 2018-09-02 10:35 | XMS REPORT | Encounter Summary ---
Author Author [facility] Organization [facility] Address Unknown Phone Unavailable Care Team Providers Care Life Science Taxonomist Name Role Phone RubinaDarling hubbard Domenica DO Unavailable Unavailable Herman Castrejon PHARMD Unavailable Unavailable Didi Louie APRN PCP Reason for Visit * Reason Comments Follow Up Encounter Details Care Team Description Date Type Department Hesham Russo MD [address] [facility] [address] [place] [address] Oral cancer (HCC) (Primary Dx) 06/11/2018 Office Visit [facility] - ENT [address] [place] [address] Social History Date Tobacco Use [...] Signs Time Taken Vital Sign Reading 06/11/2018 12:45 PM [facility] [facility] Blood Pressure 114/61 06/11/2018 12:45 PM [facility] [facility] Pulse 63 - Temperature - - Respiratory Rate - - Oxygen Saturation - - Inhaled Oxygen - Concentration 06/11/2018 12:45 PM [facility] [facility] Weight 81.6 kg (180 lb) 06/11/2018 12:45 PM [facility] [facility] Height 160 cm (5' 3") 06/11/2018 12:45 PM [facility] [employer] [facility] Body Mass Index 31.89 in this encounter Functional Status Date of Assessment Functional Status Response 02/16/2018 Does the patient have a hearing impairment: No as of this encounter Progress Notes * Hesham Russo MD - 06/11/2018 2:15 PM [facility] [employer] [facility] Chief Complaint Patient presents with Follow Up History of Present Illness: Lona Coburn is a 68 y.o. year old female evaluated in the Otolaryngology-Head and Neck Surgery Clinic at the [facility]. The patient was referred by [...] basaloid features. 01/21/18 PSVT s/p ablation at Surgery here at [facility] 02/2018, floor of mouth resection and bilateral neck dissection, did well, no adjuvant treatment needed. T1N0M0 Here for surveillance. She has no dysphagia/odynophagia, no hemoptysis, no throat tightness or breathing difficulty, no otalgia. Past Medical/Surgical History She has a past medical history of Alcoholism ([facility]); Anxiety disorder; Arthritis ; Carotid artery stenosis; COPD with emphysema (HCC); Depression; High cholesterol; Oral cancer (HCC); PSVT (paroxysmal supraventricular tachycardia) ( HCC); Rheumatoid arthritis (HCC); Seasonal allergic reaction; Skin cancer of eyelid; Stroke ([facility]) (2014); and Tobacco abuse. Past surgical history reviewed and is noncontributory. Past Family/Social History Family history reviewed and is noncontributory. She reports that she quit smoking about 3 years ago. Her smoking use included Cigarettes. She has a 40.00 pack-year smoking history. She has never used smokeless tobacco. She reports that she does not drink alcohol or use drugs. Medications/Allergies/Immunizations Her current medication(s) include: Current Outpatient Prescriptions Medication Sig Dispense Refill acetaminophen (TYLENOL) 160 mg/5 mL oral solution Take 20.3 mL via feeding tube every 4 hours as needed. Max of 4,000 mg of acetaminophen in 24 hours. 240 mL 0 apixaban (ELIQUIS) 5 mg tablet Take 5 [...] tablet Take one tablet by mouth daily. 1 tablet 1 Lactobacillus acidophilus (PROBIOTIC PO) Take by mouth twice daily. magnesium oxide (MAG-OX) 400 mg tablet Take 1 tablet by mouth daily. 180 tablet 3 montelukast (SINGULAIR) 10 mg tablet Take 10 mg by mouth at bedtime daily. oxyCODONE/acetaminophen (PERCOCET; ENDOCET; ROXICET) 5/325 mg tablet Take one tablet via feeding tube every 4 hours as needed 20 tablet 0 pravastatin (PRAVACHOL) 10 mg tablet Take one tablet by mouth at bedtime daily. Per feeding tube 90 tablet 3 ranitidine(+) (ZANTAC) 150 mg tablet Take 150 mg by mouth twice daily. senna/docusate (SENOKOT-S) 8.6/50 mg tablet one tablet by Per G Tube route twice daily as needed. 60 tablet 0 sertraline (ZOLOFT) 50 mg tablet Take 50 [...] the HPI. PHYSICAL EXAM: Vital Signs: BP 114/61 (BP Source: Arm, Right Upper, Patient Position: Sitting ) | Pulse 63 | Ht 160 cm (63") | Wt 81.6 kg (180 lb) | BMI 31.89 kg/m General: Well-developed, well-nourished Communication and Voice: [...] Gums: Mucosa and teeth intact and viable; well healed floor of mouth with post surgical treatment changes Oropharynx: No erythema or exudate, no masses or ulcerations, non-obstructive tonsils Nasopharynx: No mass or lesion with intact mucosa Hypopharynx: No masses or ulcerations, normal mucosa without pooling of secretions Larynx: Normal supraglottic and glottic structures without masses or ulcerations, normal vocal fold mobility Neck, Trachea, Lymphatics: Midline trachea without mass or lesion, no lymphadenopathy, well healed neck incision Thyroid: No mass or nodularity Eyes: No nystagmus with equal extraocular motion bilaterally Neuro/Psych/Balance: Patient oriented and appropriate in interaction; Appropriate mood and affect; Gait is intact with no imbalance; Cranial nerves I -XII are intact Respiratory effort: Equal inspiration and expiration without stridor Peripheral Vascular: Warm extremities with equal pulses IMPRESSION: My impression is that 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 PLAN: Return in 3 months for surveillance. I believe that Ms. Coburn has a good understanding of the issues involved and I answered all of her questions. [employer] in this encounter Plan of Treatment Not on fileas of this encounter Visit Diagnoses Diagnosis Oral cancer (HCC) - Primary Malignant neoplasm of mouth, unspecified site in this encounter
--- OUTSIDE RECORDS SUMMARY | 2018-09-02 10:35 | XMS REPORT | Encounter Summary ---
Author Author [facility] Organization [facility] Address Unknown Phone Unavailable Care Team Providers Care Crossbow Maker Name Role Phone Darling Cespedes DO Unavailable Unavailable Herman Castrejon PHARMD Unavailable Unavailable Didi Louie APRN PCP Reason for Referral * Radiology Services (Routine) Referred By Contact Referred To Contact Status Reason Specialty Diagnoses / Procedures Herman Ramos PA-C [address] [facility] [address] [address] [place] [address] Closed Radiology Diagnoses PEG (percutaneous endoscopic gastrostomy) adjustment/replace ment/removal (HCC) P rocedures IR GASTROSTOMY PA CHANGE GASTROSTOMY TUBE PERCUTANEOUS W/O GDNCE * Radiology Services (Routine) Referred By Contact Referred To Contact Status Reason Specialty Diagnoses / Procedures Herman Ramos PA-C [address] [facility] [address] [address] [place] [address] Closed Radiology Diagnoses PEG (percutaneous endoscopic gastrostomy) adjustment/replace ment/removal (HCC) P rocedures IR GASTROSTOMY PA CHANGE GASTROSTOMY TUBE PERCUTANEOUS W/O GDNCE Reason for Visit * Radiology Services (Routine) Referred By Contact Referred To Contact Status Reason Specialty Diagnoses / Procedures Herman Ramos PA-C [address] [facility] [address] [place] [address] [place] [address] Closed Radiology Diagnoses PEG (percutaneous endoscopic gastrostomy) adjustment/replace ment/removal (HCC) P rocedures IR GASTROSTOMY PA CHANGE GASTROSTOMY TUBE PERCUTANEOUS W/O GDNCE Encounter Details Care Team Description Date Type Department Herman Ramos PA-C [address] [facility] [address] [place] [id number] [phone] Raleigh Kinsey MD [address] [facility] [address] [place], [place] [id number] PEG (percutaneous endoscopic gastrostomy) adjustment/ replacement/removal ([facility]) 06/11/2018 [facility] Encounter Hospital Radiology [facility] [address] [place] [address] Social History Date Tobacco Use Types Packs/Day [...] travel history available. as of this encounter Functional Status Date of Assessment Functional Status Response 02/16/2018 Does the patient have a hearing impairment: No as of this encounter Medications at Time of Discharge Start Date End Date Medication Sig Dispensed Refills 02/19/2018 acetaminophen (TYLENOL) Take 20.3 mL 240 mL 0 160 mg/5 mL oral solution via feeding tube every 4 hours as needed. Max of 4,000 mg of acetaminophen in 24 hours. apixaban (ELIQUIS) 5 mg Take 5 mg by 0 tabletIndications: per mouth twice feeding tube daily. aspirin EC 81 mg Take 81 mg by 0 tabletIndications: Per mouth daily. feeding tube Take with food. cetirizine (ZYRTEC) 10 mg Take 10 mg by 0 tabletIndications: per mouth every feeding tube morning. Cholecalciferol (Vitamin Take 1 0 D3) (VITAMIN D) 1,000 capsule by unit capIndications: per mouth daily. feeding tube etanercept (ENBREL) 50 Inject 50 mg 0 mg/mL (0.98 mL) injection under the skin every 7 days. 02/22/2018 fluconazole (DIFLUCAN) Take one 1 tablet 1 100 mg tablet tablet by mouth daily. Lactobacillus acidophilus Take by 0 (PROBIOTIC PO) mouth twice daily. 01/22/2018 magnesium oxide (MAG-OX) Take 1 tablet 180 tablet 3 400 mg tabletIndications: by mouth per feeding tube daily. montelukast (SINGULAIR) Take 10 mg by 0 10 mg tabletIndications: mouth at per feeding tube bedtime daily. 02/22/2018 oxyCODONE/acetaminophen Take one 20 tablet 0 (PERCOCET; ENDOCET; tablet via ROXICET) 5/325 mg feeding tube tabletIndications: per every 4 hours Feeding tube as needed 02/19/2018 pravastatin (PRAVACHOL) Take one 90 tablet 3 10 mg tablet tablet by mouth at bedtime daily. Per feeding tube ranitidine(+) (ZANTAC) Take 150 mg 0 150 mg tabletIndications: by mouth per Feeding tube twice daily. 02/19/2018 senna/docusate one tablet by 60 tablet 0 (SENOKOT-S) 8.6/50 mg Per G Tube tablet route twice daily as needed. sertraline (ZOLOFT) 50 mg Take 50 mg by 0 tabletIndications: per mouth daily. feeding tube 10/21/2017 SPIRIVA RESPIMAT 2.5 Inhale 1 puff 0 mcg/actuation inhaler by mouth into the lungs daily. 12/01/2017 SYMBICORT 160-4.5 Inhale 2 0 mcg/actuation inhalation puffs by mouth into the lungs twice daily. traZODone (DESYREL) 50 mg Take 100 mg 0 tabletIndications: per by mouth at feeding tube bedtime as needed for Sleep. as of this encounter Miscellaneous Notes * Procedures (Immed Post or Bedside) - DivEvelyn ray APRN, ANP-BC - 06/11/2018 2:47 PM WH[facility]ER Immediate Post Procedure Note Date: 06/11/2018 Attending Physician: Dr. Kinsey Performing Provider: Evelyn Chen APRN, ANP-BC Consent: Verbal consent. Time out performed: Consent obtained, correct patient verified, correct procedure verified, correct site verified, patient marked as necessary. Pre/Post Procedure Diagnosis: Oral cancer Indications: G-tube nutrition completion. Anesthesia: NA Procedure(s): G-tube removal. Findings: 10ml removed for g-tube syringe with uneventful removal of 18F g- tube. Estimated Blood Loss: None/Negligible Specimen(s) Removed/Disposition: None Complications: None Patient Tolerated Procedure: Well Post-Procedure Condition: stable Evelyn Chen APRN, ANP-BC Pager [phone] ZER in this encounter Plan of Treatment Not on fileas of this encounter Procedures Comments Procedure Name Priority Date/Time Associated Diagnosis IR GASTROSTOMY Routine 06/11/2018 PEG (percutaneous 2:53 PM WHIZZER endoscopic gastrostomy) adjustment/replacement/re moval (HCC) in this encounter Results * IR GASTROSTOMY (06/11/2018 2:53 PM WHIZZER) Narrative Performed At This IR procedure does not require a dictated result. SYDNIE HUNT Performing Organization Address City/State/Zipcode Phone Number SYDNIE HUNT in this encounter Visit Diagnoses Diagnosis PEG (percutaneous endoscopic gastrostomy) adjustment/replacement/removal (HCC) Attention to gastrostomy in this encounter
--- OUTSIDE RECORDS SUMMARY | 2018-09-02 10:35 | XMS REPORT | Encounter Summary ---
Author Author [facility] Organization [facility] Address Unknown Phone Unavailable Care Team Providers Care Architectural Associate Name Role Phone RubinaDarling Domenica DO Unavailable Unavailable Herman Castrejon PHARMD Unavailable Unavailable Didi Louie BUZZSAW OPERATOR HELPER PCP Reason for Referral * Radiology Services (Routine) Referred By Contact Referred To Contact Status Reason Specialty Diagnoses / Procedures Herman Ramos PA-C [address] [facility] [address] [place] [id number] New Request Radiology Diagnoses Oral cancer (HCC) Lung nodules P rocedures CT CHEST W CONTRAST * Radiology Services (Routine) Referred By Contact Referred To Contact Status Reason Specialty Diagnoses / Procedures Herman Ramos PA-C [address] [facility] Lvl [address] [place] [address] New Request Radiology Diagnoses Oral cancer (HCC) Lung nodules P rocedures CT CHEST W CONTRAST * Radiology Services Referred By Contact Referred To Contact Status Reason Specialty Diagnoses / Procedures Hesham Russo MD [address] [facility] [address] [place] [address] MED OFFICE [address]ND [place] [address] Closed Radiology Diagnoses 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 * Radiology Services Referred By Contact Referred To Contact Status Reason Specialty Diagnoses / Procedures Hesham Russo MD [address] [facility] [address] [place] [address] [facility] [address] MED OFFICE [address] [place] [address] Closed Radiology Diagnoses 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 Reason for Visit * Radiology Services Referred By Contact Referred To Contact Status Reason Specialty Diagnoses / Procedures Hesham Russo MD [address] [facility] [address] [place] [address] [facility] [address] [facility] [address] [address] Closed Radiology Diagnoses 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 as of this encounter Plan of Treatment Not on fileas of this encounter Procedures Comments Procedure Name Priority Date/Time Associated Diagnosis CT CHEST W CONTRAST Routine 06/11/2018 Oral cancer (HCC) 1:55 PM SACK CLEANER Lung nodules CT NECK W/CONTRAST Routine 06/11/2018 Cancer of floor of mouth 1:55 PM SACK CLEANER (HCC) POC CREATININE, RAD 06/11/2018 1:27 PM SACK CLEANER in this encounter Results * CT CHEST W CONTRAST (06/11/2018 1:55 PM SACK CLEANER) Impressions Performed At 1. Development of a tiny pulmonary nodule in the right lower lobe, likely [facility] infectious or inflammatory. Follow-up CT chest is recommended in 3 months for reevaluation. 2. Other previously seen tiny bilateral pulmonary nodules are unchanged, likely reflecting scars or granulomas. 3. No thoracic lymphadenopathy. 4. Mild emphysema and persistent debris within the trachea, likely reflecting retained secretions. 5. Calcific coronary artery disease and aortic valve calcification. Approved by Tyrell Rivera M.D. on 06/11/2018 5:22 PM By my electronic signature, I attest that I have personally reviewed the images for this examination and formulated the interpretations and opinions expressed in this report Finalized by KARINA CORDERO M.D. on 06/11/2018 5:57 PM. Dictated by Tyrell Rivera M.D. on 06/11/2018 4:02 PM. Narrative Performed At CT CHEST [facility] Clinical Indication:Female, 68 years old. Oral cancer and lung nodules. Technique: Multiple contiguous axial images were obtained through the chest following administration of IV contrast material. Post processing coronal and sagittal reconstruction images were made from the axial images. IV contrast: Omnipaque 350 Comparison: January 29, 2018 FINDINGS: Lower neck: Unremarkable. Axilla, Mediastinum and Yolanda: Stable small mediastinal lymph nodes. No thoracic lymphadenopathy. Heart and Great Vessels: The heart size is normal without pericardial effusion. At least moderate calcific coronary artery disease. Mild aortic valve calcification. The thoracic aorta is normal caliber with mild atherosclerotic plaque. Airway, Lungs and Pleura: Persistent small amount of debris in the trachea. Mild centrilobular emphysema with scattered areas of scarring. Redemonstration of a few scattered right lung calcified granulomas. Few scattered tiny noncalcified pulmonary nodules are unchanged (5-20, 27, 33, 37, and 39). Development of a 0.3 cm nodule in the right lower lobe (5-39). Stable linear atelectasis or scarring in the lung bases, greatest in the medial left lower lobe. No pleural effusion. Chest Wall and Osseous Structures: Loop recorder device noted in the left chest wall. Moderate spondylosis. No destructive osseous lesions. Upper abdomen: Unremarkable. Procedure Note Interface, Radiant Results - 06/11/2018 6:[address] CHEST Clinical Indication: Female, 68 years old. Oral cancer and lung nodules. Technique: Multiple contiguous axial images were obtained through the chest following administration of IV contrast material. Post processing coronal and sagittal reconstruction images were made from the axial images. IV contrast: Omnipaque 350 Comparison: January 29, 2018 FINDINGS: Lower neck: Unremarkable. Axilla, Mediastinum and Yolanda: Stable small mediastinal lymph nodes. No thoracic lymphadenopathy. Heart and Great Vessels: The heart size is normal without pericardial effusion. At least moderate calcific coronary artery disease. Mild aortic valve calcification. The thoracic aorta is normal caliber with mild atherosclerotic plaque. Airway, Lungs and Pleura: Persistent small amount of debris in the trachea. Mild centrilobular emphysema with scattered areas of scarring. Redemonstration of a few scattered right lung calcified granulomas. Few scattered tiny noncalcified pulmonary nodules are unchanged (5-20, 27, 33, 37, and 39). Development of a 0.3 cm nodule in the right lower lobe (5-39). Stable linear atelectasis or scarring in the lung bases, greatest in the medial left lower lobe. No pleural effusion. Chest Wall and Osseous Structures: Loop recorder device noted in the left chest wall. Moderate spondylosis. No destructive osseous lesions. Upper abdomen: Unremarkable. IMPRESSION 1. Development of a tiny pulmonary nodule in the right lower lobe, likely infectious or inflammatory. Follow-up CT chest is recommended in 3 months for reevaluation. 2. Other previously seen tiny bilateral pulmonary nodules are unchanged, likely reflecting scars or granulomas. 3. No thoracic lymphadenopathy. 4. Mild emphysema and persistent debris within the trachea, likely reflecting retained secretions. 5. Calcific coronary artery disease and aortic valve calcification. Approved by Tyrell Rivera M.D. on 06/11/2018 5:22 PM By my electronic signature, I attest that I have personally reviewed the images for this examination and formulated the interpretations and opinions expressed in this report Finalized by KARINA CORDERO M.D. on 06/11/2018 5:57 PM. Dictated by Tyrell Rivera M.D. on 06/11/2018 4:02 PM. Performing Organization Address City/State/Zipcode Phone Number [facility] * CT NECK W/CONTRAST (06/11/2018 1:55 PM SACK CLEANER) Impressions Performed At 1.Interval bilateral neck and anterior floor of mouth dissection. [facility] Ill-defined thickening at the anterior floor of mouth resection site postsurgical in nature. No discrete measurable soft tissue neck mass or lymphadenopathy is identified. 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 3.Cervical spondylosis resulting in at least mild multilevel central spinal and severe multilevel neural foraminal stenosis. Approved by Roly Smith DO on 06/11/2018 2:57 PM By my electronic signature, I attest that I have personally reviewed the images for this examination and formulated the interpretations and opinions expressed in this report Finalized by Dionisio Sheikh M.D. on 06/11/2018 3:20 PM. Dictated by Roly Smith DO on 06/11/2018 2:30 PM. Narrative Performed At CT Neck [facility] Clinical Indication: Female, 68 years old. Cancer of the floor of mouth. Interval neck and floor of mouth dissection. Technique: Multiple contiguous axial images were obtained through the neck following the administration of Omnipaque 350 IV contrast material. Post processing coronal and sagittal reconstruction images were made from the axial images. Comparison: PET/CT and CT neck dated January 29, 2018. Findings: Brain and Orbits: There is old encephalomalacia and gliosis within the left MCA territory with ex vacuo dilation of the left lateral ventricle. Imaged brain and orbits are otherwise normal. Sinuses and Mastoids: Normal. Suprahyoid Neck: There is ill-defined anterior floor of mouth mucosal thickening without a discrete measurable mass lesion (series 3, images 32-34). Normal nasal cavity, nasopharynx, oral cavity, oropharynx, parapharyngeal space, and retropharyngeal space. Infrahyoid Neck: Normal larynx and hypopharynx. Lymph Nodes: Interval bilateral neck dissection with mildly prominent bilateral level I lymph nodes. Parotid and Submandibular Glands: Submandibular glands are surgically absent. Parotid glands are normal. Thyroid: Normal in size with heterogeneous attenuation. Vasculature: Extensive atherosclerotic vascular disease with persistent chronic occlusion or near complete occlusion of the left cervical ICA origin. Osseous Structures: Cervical spondylosis results in multiple levels of moderate spinal canal stenosis and severe bilateral neural foraminal stenosis. No aggressive osseous lesions. Thoracic inlet: Mild emphysematous changes within the included lung apices. Minimal endotracheal secretions/debris noted. There is a calcified right upper lobe granuloma. Persistent multistation subcentimeter mediastinal lymph nodes. Procedure Note Interface, Radiant Results - 06/11/2018 3:[address] Neck Clinical Indication: Female, 68 years old. Cancer of the floor of mouth. Interval neck and floor of mouth dissection. Technique: Multiple contiguous axial images were obtained through the neck following the administration of Omnipaque 350 IV contrast material. Post processing coronal and sagittal reconstruction images were made from the axial images. Comparison: PET/CT and CT neck dated January 29, 2018. Findings: Brain and Orbits: There is old encephalomalacia and gliosis within the left MCA territory with ex vacuo dilation of the left lateral ventricle. Imaged brain and orbits are otherwise normal. Sinuses and Mastoids: Normal. Suprahyoid Neck: There is ill-defined anterior floor of mouth mucosal thickening without a discrete measurable mass lesion (series 3, images 32-34). Normal nasal cavity, nasopharynx, oral cavity, oropharynx, parapharyngeal space , and retropharyngeal space. Infrahyoid Neck: Normal larynx and hypopharynx. Lymph Nodes: Interval bilateral neck dissection with mildly prominent bilateral level I lymph nodes. Parotid and Submandibular Glands: Submandibular glands are surgically absent. Parotid glands are normal. Thyroid: Normal in size with heterogeneous attenuation. Vasculature: Extensive atherosclerotic vascular disease with persistent chronic occlusion or near complete occlusion of the left cervical ICA origin. Osseous Structures: Cervical spondylosis results in multiple levels of moderate spinal canal stenosis and severe bilateral neural foraminal stenosis. No aggressive osseous lesions. Thoracic inlet: Mild emphysematous changes within the included lung apices. Minimal endotracheal secretions/debris noted. There is a calcified right upper lobe granuloma. Persistent multistation subcentimeter mediastinal lymph nodes. IMPRESSION 1. Interval bilateral neck and anterior floor of mouth dissection. Ill- defined thickening at the anterior floor of mouth resection site postsurgical in nature. No discrete measurable soft tissue neck mass or lymphadenopathy is identified. 2. 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 3. Cervical spondylosis resulting in at least mild multilevel central spinal and severe multilevel neural foraminal stenosis. Approved by Roly Smith DO on 06/11/2018 2:57 PM By my electronic signature, I attest that I have personally reviewed the images for this examination and formulated the interpretations and opinions expressed in this report Finalized by Dionisio Sheikh M.D. on 06/11/2018 3:20 PM. Dictated by Roly Smith DO on 06/11/2018 2:30 PM. 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 This med is usually available in floor stock., Intra-procedure (IR) in this encounter
--- OUTSIDE RECORDS SUMMARY | 2018-09-02 10:35 | XMS REPORT | Clinical Summary ---
Author Author [facility] Organization [facility] Address Unknown Phone Unavailable Care Team Providers Care International Specialist Name Role Phone RubinaDarling Domenica DO Unavailable Unavailable Herman Castrejon PHARMD Unavailable Unavailable Didi Louie APRN PCP Source Comments Some departments are not documenting in the electronic medical record. If you do not see the information that you expected, contact Release of Information in the Health Information Management department at [phone] for further assistance in locating additional records.[facility] Allergies Comments Active Allergy Reactions Severity Noted Date C Diff Levofloxacin SEE COMMENTS Low 01/07/2018 Ceftriaxone HEADACHE, Low 12/25/2017 NAUSEA ONLY, DIZZINESS Medications End Date Status Medication Sig Dispensed Refills Start Date Active Cholecalciferol (Vitamin Take 1 0 D3) (VITAMIN D) 1,000 capsule by unit capIndications: per mouth daily. feeding tube Active etanercept (ENBREL) 50 Inject 50 mg 0 mg/mL (0.98 mL) injection under the skin every 7 days. Active Lactobacillus acidophilus Take by 0 (PROBIOTIC PO) mouth twice daily. Active montelukast (SINGULAIR) Take 10 mg by 0 10 mg tabletIndications: mouth at per feeding tube bedtime daily. Active aspirin EC 81 mg Take 81 mg by 0 tabletIndications: Per mouth daily. feeding tube Take with food. Active ranitidine(+) (ZANTAC) Take 150 mg 0 150 mg tabletIndications: by mouth per Feeding tube twice daily. Active sertraline (ZOLOFT) 50 mg Take 50 mg by 0 tabletIndications: per mouth daily. feeding tube Active traZODone (DESYREL) 50 mg Take 100 mg 0 tabletIndications: per by mouth at feeding tube bedtime as needed for Sleep. Active SYMBICORT 160-4.5 Inhale 2 0 mcg/actuation inhalation puffs by 8 mouth into the lungs twice daily. Active SPIRIVA RESPIMAT 2.5 Inhale 1 puff 0 mcg/actuation inhaler by mouth into 8 the lungs daily. Active magnesium oxide (MAG-OX) Take 1 tablet 180 tablet 3 400 mg tabletIndications: by mouth 8 per feeding tube daily. Active apixaban (ELIQUIS) 5 mg Take 5 mg by 0 tabletIndications: per mouth twice feeding tube daily. Active cetirizine (ZYRTEC) 10 mg Take 10 mg by 0 tabletIndications: per mouth every feeding tube morning. Active acetaminophen (TYLENOL) Take 20.3 mL 240 mL 0 160 mg/5 mL oral solution via feeding 8 tube every 4 hours as needed. Max of 4,000 mg of acetaminophen in 24 hours. Active pravastatin (PRAVACHOL) Take one 90 tablet 3 10 mg tablet tablet by 8 mouth at bedtime daily. Per feeding tube Active senna/docusate one tablet by 60 tablet 0 (SENOKOT-S) 8.6/50 mg Per G Tube 8 tablet route twice daily as needed. Active oxyCODONE/acetaminophen Take one 20 tablet 0 (PERCOCET; ENDOCET; tablet via 8 ROXICET) 5/325 mg feeding tube tabletIndications: per every 4 hours Feeding tube as needed Active fluconazole (DIFLUCAN) Take one 1 tablet 1 100 mg tablet tablet by 8 mouth daily. Active Problems Problem Noted Date Lung nodules 05/04/2018 COPD (chronic obstructive pulmonary disease) 02/16/2018 On home oxygen therapy 02/16/2018 Cancer of oral cavity 02/15/2018 Oral cancer 01/29/2018 Cancer Staging: Pathologic stage from 02/15/2018: Stage I (pT1, pN0, cM0) - Signed by Herman Ramos PA-C on 06/11/2018 Overview: Added automatically from request for surgery [id number] PSVT (paroxysmal supraventricular tachycardia) 01/07/2018 Overview: ECHO 11/20/15: normal LV with EF of 60-65%, trivial MR and TR, mild diastolic dysfunction. 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 Encounters Care Team Description Date Type Specialty Herman Ramos PA-C Collins, Zachary S, MD PEG (percutaneous endoscopic gastrostomy) adjustment/ replacement/removal (HCC) 06/11/2018 Hospital Radiology Encounter Hesham Russo MD 06/11/2018 Hospital Radiology Encounter Herman Ramos PA-C Oral cancer (HCC) (Primary Dx) 06/11/2018 Office Visit Otolaryngology Hesham Russo MD Oral cancer (HCC) (Primary Dx) 06/11/2018 Office Visit Otolaryngology from Last 3 Months Family History Medical History Relation Name Comments Gout Brother Heart Attack Mother Gout Sister Relation Name Status Comments Brother Alive Father poor blood circlation lost legs Mother bleeding disorder Sister Alive Social History Date Tobacco Use Types Packs/Day [...] Travel Start No recent travel history available. Last Filed Vital Signs Time Taken Vital Sign Reading 06/11/2018 1:52 PM CERAMIC TILE MECHANIC Blood Pressure 114/61 06/11/2018 1:52 PM CERAMIC TILE MECHANIC Pulse 63 02/19/2018 10:00 AM CDT Temperature 37.1 C (98.7 F) 07/04/2013 2:17 PM CERAMIC TILE MECHANIC Respiratory Rate 14 02/19/2018 10:00 AM CDT Oxygen Saturation 93% - Inhaled Oxygen - Concentration 06/11/2018 12:45 PM CERAMIC TILE MECHANIC Weight 81.6 kg (180 lb) 06/11/2018 12:45 PM CERAMIC TILE MECHANIC Height 160 cm (5' 3") 06/11/2018 12:45 PM CERAMIC TILE MECHANIC Body Mass Index 31.89 Plan of Treatment Health Maintenance Due Date Last Done Comments HEPATITIS C SCREENING 1949 PHYSICAL (COMPREHENSIVE) 1956 EXAM DTAP/TDAP VACCINES (1 - 1967 Tdap) BREAST CANCER SCREENING 1989 COLORECTAL CANCER 1999 SCREENING SHINGLES RECOMBINANT 1999 VACCINE (1 of 2) OSTEOPOROSIS 2014 SCREENING/MONITORING PNEUMONIA (PCV13/PPSV23) 2014 VACCINES (1 of 2 - PCV13) INFLUENZA VACCINE 02/10/2018 Procedures Comments Procedure Name Priority Date/Time Associated Diagnosis IR GASTROSTOMY Routine 06/11/2018 PEG (percutaneous 2:53 PM CERAMIC TILE MECHANIC endoscopic gastrostomy) adjustment/replacement/re moval (HCC) CT CHEST W CONTRAST Routine 06/11/2018 Oral cancer (HCC) 1:55 PM CERAMIC TILE MECHANIC Lung nodules CT NECK W/CONTRAST Routine 06/11/2018 Cancer of floor of mouth 1:55 PM CERAMIC TILE MECHANIC (HCC) POC CREATININE, RAD 06/11/2018 1:27 PM CERAMIC TILE MECHANIC from Last 3 Months Results * IR GASTROSTOMY (06/11/2018 2:53 PM CERAMIC TILE MECHANIC) Narrative Performed At This IR procedure does not require a dictated result. [facility] Performing Organization Address City/State/Zipcode Phone Number [facility] * CT CHEST W CONTRAST (06/11/2018 1:55 PM CERAMIC TILE MECHANIC) Impressions Performed At 1. Development of a [...] Interface, Radiant Results - 06/11/2018 6:00 [address]IC CT CHEST Clinical Indication: Female, 68 years [...] * CT NECK W/CONTRAST (06/11/2018 1:55 PM CERAMIC TILE MECHANIC) Impressions Performed At 1.Interval bilateral neck and [...] Interface, Radiant Results - 06/11/2018 3:23 [address]IC [address] Neck Clinical Indication: Female, 68 years [...] * POC CREATININE, RAD (06/11/2018 1:27 PM CERAMIC TILE MECHANIC) Creatinine, POC 0.7 0.4 - 1.00 MG/DL [facility] Performing Organization Address City/State/Zipcode Phone Number [facility] [address] [place] [address] from Last 3 Months Insurance Payer Benefit Subscriber ID Type Phone Address Plan / Group MEDICARE MEDICARE xxxxxxxxxx Medicare PART A AND B [facility] MEDICAID [facility] xxxxxxxxxxx Medicaid [employer] [place] [facility] xxxxxxxxxxx [place] [facility] Advance Directives Patient has advance care planning documents, and code status on file. For more information, please contact: [facility] [address] [place] [address] Date Inactivated Comments Code Status Date Activated 02/19/2018 3:33 PM Full Code 02/15/2018 6:28 PM Provider has discussed Code Status No, discussion not w/Patient or Family? necessary based on Dx 01/22/2018 3:07 PM Full Code 01/21/2018 6:08 AM Provider has discussed Code Status No, discussion not w/Patient or Family? necessary based on Dx
--- OUTSIDE RECORDS SUMMARY | 2018-09-02 10:36 | XMS REPORT ---
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 392409069 Problem Chronic pain syndrome G89.4 Active 544260299 Problem Leg pain, left M79.605 Active 697089720 Problem Anxiety F41.9 Active 86763274 Problem Dysphagia, unspecified dysphagia R13.10 Active 83648759 Problem Depression, unspecified depression type F32.9 Active 40964729 Problem Iron deficiency anemia, unspecified iron deficiency anemia type D50.9 Active 75152988 Problem Anemia, unspecified type D64.9 Active 192615474 Problem History of oral cancer Z85.819 Active 982474321 Problem Seasonal allergic rhinitis due to pollen J30.1 Active 56331027 Problem 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 562417578 Problem History of cerebrovascular accident with current residual effects I69.90 Active 601463956 Problem Peripheral vascular disease, unspecified I73.9 Active 759014264 Problem Chronic obstructive pulmon disease w acute lower resp infct J44.0 Active 593695368 Problem Other chronic pain G89.29 Active 23257043 Problem Insomnia, unspecified G47.00 Active 815730591 Problem Primary insomnia F51.01 Active 2881714 Problem Rheumatoid arthritis M06.9 Active 01741329 Problem Atrial fibrillation I48.91 Active 32086535 Problem Osteoarthritis of foot M19.079 Active 330374087 Problem Hypertension I10 Active 10156089 Problem Tobacco abuse, 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 [address] [address] Apr, Cough R05 and Viral illness B34.9 [facility] [address] 7[address]78- [address]247 Apr, Encounter for immunization Z23 [facility] [facility] [address] 64309- 4578 Apr, Chronic pain syndrome G89.4 [facility] [address] [address] Apr, Left acute otitis media H66.92 [facility] [address] 51339- 5509 Mar, Rheumatoid arthritis M06.9 ; Other chronic pain G89.29 ; History of oral cancer Z85.819 and History of tachycardia Z87.898 [facility] [id number] [place] [address] 47917- 1531 Mar, Chronic pain syndrome G89.4 [facility] [address] 71062- 5514 Feb, Chronic pain syndrome G89.4 [facility] [address] 68712- 2681 Feb, Chronic pain syndrome G89.4 [facility] [address] [address]- 5829 Jan, Chronic pain syndrome G89.4 [facility] [address], [place] [address] Jan, [facility] [id number] [place] [address] 62649- 1837 Dec, Chronic pain syndrome G89.4 [facility] [address], [place] [address] 4168 November, Chronic pain syndrome G89.4 [facility] [id number] [place] [address] 11358- 3366 November, [facility] [id number] [place] [address] 36219- 0955 Oct, Chronic pain syndrome G89.4 [facility] [id number] [place] [address] 16587- 9633 Oct, [facility] [id number] [place] [address] 99162- 6071 Oct, Chronic pain syndrome G89.4 [facility] [address] [address] 1166 Oct, [facility] [id number] [place] [address] 44772- 9836 Oct, [facility] [address], [place] [address] 8[address] Sep, Left upper quadrant pain R10.12 ; Chronic pain syndrome G89.4 ; Left lower quadrant pain R10.32 ; Other chronic pain G89.29 ; Sacrococcygeal disorders, not elsewhere classified M53.3 and Seasonal allergic rhinitis due to pollen J30.1 [facility] [address], [place] [address] 1533 Sep, Chronic pain syndrome G89.4 [facility] [address], [place] [address] 6875 Sep, [facility] [id number] [place] [address] 22074- 4615 Aug, Chronic pain syndrome G89.4 [facility] [id number] [place] [address] 65816- 7322 Aug, [facility] [id number] [place] [address] 79687- 3607 Aug, Insomnia, unspecified G47.00 [facility] [id number] [place] [address] 98485- 4107 Jul, [facility] [id number] [place] [address] 93570- 7079 Jul, [facility] [id number] [place] [address] 26161- 9968 Jul, Chronic pain syndrome G89.4 [facility] [id number] [place] [address] 43127- 3271 Jun, Chronic pain syndrome G89.4 [facility] [id number] [place] [address] 34061- 4408 Jun, Chronic pain syndrome G89.4 [facility] [id number] [place] [address] 79477- 4596 May, [facility] [id number] [place] [address] 00968- 2483 May, Shortness of breath R06.02 ; Peripheral vascular disease, unspecified I73.9 ; Pain in right knee M25.561 ; Other chronic pain G89.29 ; Chest wall pain R07.89 ; Chronic pain syndrome G89.4 ; Primary insomnia F51.01 and Ear pain, left H92.02 [facility] [id number] [place] [address] 77675- 9952 06 May, 2017 Anxiety F41.9 [facility] [id number] [place] [address] 88920- 8180 09 Apr, 2017 Pneumonia due to infectious organism, unspecified laterality , unspecified part of lung J18.9 ; Hypoxia R09.02 ; Bradycardia R00.1 ; History of Clostridium difficile Z87.19 and Primary insomnia F51.01 [facility] [id number] [place] [address] 89349- 3581 Apr, Anxiety F41.9 [facility] [id number] [place] [address] 17336- 1608 Apr, [facility] [id number] [place] [address] 50977- 6004 Mar, Anxiety F41.9 [facility] [id number] [place] [address] 35079- 7509 Feb, [facility] [address] 88597- 6780 Feb, [facility] [facility] [address] [address]65- 7509 Feb, Abnormal finding on urinalysis R82.90 [facility] [id number] [place] [address] 50429- 3994 Feb, [facility] [address] 56917- 7798 Feb, Shortness of breath R06.02 ; Tachycardia R00.0 ; Cough R05 ; Ill feeling R68.89 and Abnormal finding on urinalysis R82.90 [facility] [id number] [place] [address] 40258- 9003 Feb, Anxiety F41.9 [facility] [id number] [place] [address] 41468 -3302 Feb, Sore throat J02.9 and Acute diffuse otitis externa of left ear H60.312 [facility] [id number] [place] [address] 23527- 1436 Jan, [facility] [id number] [place] [address] 16822- 7127 Jan, [facility] [address] [id number] Jan, [facility] [address], [place] [address]- 7456 Jan, Depression, unspecified depression type F32.9 ; Chronic bronchitis, unspecified chronic bronchitis type J42 ; Chronic pain syndrome G89.4 and Anxiety F41.9 [facility] [address], [place] [address]- 9689 Jan, [facility] [id number] [place] [address] 33825- 6210 Jan, [facility] [id number] [place] [address] 55032- 2428 Jan, [facility] [id number] [place] [address] [id number] Jan, Chronic pain syndrome G89.4 [facility] [address] [place] [id number] Dec, History of right knee surgery Z98.890 [facility] [id number] [place] [address] 86750- 9191 Dec, [facility] [id number] [place] [address] 62344- 4939 Dec, Chronic pain syndrome G89.4 [facility] [address], [place] [address]- 3308 November, Anxiety F41.9 [facility] [id number] [place] [address] 20599 -7632 November, Acute cystitis without hematuria N30.00 [facility] [id number] [place] [address] 06851 -0902 November, Fever, unspecified fever cause R50.9 and Acute cystitis without hematuria N30.00 [facility] [address], [place] [address]- 1157 November, Chronic pain syndrome G89.4 [facility] [id number] [place] [address] 68607- 3816 Oct, Anxiety F41.9 [facility] [id number] [place] [address] 55269- 5103 Oct, Chronic pain syndrome G89.4 [facility] [id number] [place] [address] 62943- 0257 Oct, Chronic pain syndrome G89.4 [facility] [id number] [place] [address] 83087- 2811 Oct, [facility] [id number] [place] [address] 94213- 9151 Oct, Chronic pain syndrome G89.4 ; Pain in right knee M25.561 ; History of Clostridium difficile Z87.19 ; Iron deficiency anemia, unspecified iron deficiency anemia type D50.9 ; Peripheral vascular disease, unspecified I73.9 and Atrial fibrillation I48.91 [facility] [place] [id number] [place] [address] 29387- 3294 Oct, [facility] [id number] [place] [address] 51043- 0944 Oct, Chronic pain syndrome G89.4 [facility] [id number] [place] [address] 28972- 0959 Sep, [facility] [id number] [place] [address] 29744- 9915 Sep, Depression, unspecified depression type F32.9 ; Chronic bronchitis, unspecified chronic bronchitis type J42 ; Chronic pain syndrome G89.4 and Anxiety F41.9 [email or web address] [address] [place] [id number] Sep, History of Clostridium difficile infection Z86.19 and History of stroke Z86.73 [facility] [id number] [place] [address] [id number] Sep, Anxiety F41.9 [facility] [id number] [place] [address] 87241- 8307 Sep, Chronic pain syndrome G89.4 [facility] [address], [place] [address]- 8186 Sep, [facility] [id number] [place] [address] [id number] Sep, [facility] [address], [place] [address]- 1288 Aug, Anxiety F41.9 [facility] [id number] [place] [address] 82423 2549 Aug, Anxiety F41.9 [facility] [id number] [place] [address] 61504- 3029 Aug, [facility] [id number] [place] [address] 97849- 3667 14 Aug, 2016 Acute knee pain, unspecified laterality M25.569 [facility] [id number] [place] [address] 92423- 9700 Aug, [facility] [id number] [place] [address] 23704- 9336 Aug, Chronic pain syndrome G89.4 [facility] [id number] [place] [address] 67330- 9812 08 Aug, 2016 [facility] [address], [place] [address]- 4577 Aug, [facility] [address], [place] [address]- 5192 Jul, [facility] [address], [place] [address]- 9147 Jul, Anxiety F41.9 [facility] [address], [place] [address]- 7367 Jul, Clostridium difficile diarrhea A04.7 [facility] [address] [place] [id number] Jul, Clostridium difficile diarrhea A04.7 ; Chronic pain syndrome G89.4 ; Chronic obstructive pulmon disease w acute lower resp infct J44.0 and Pain in right knee M25.561 [facility] [id number] [place] [address] [id number] Jul, [facility] [address], [place] [address] Jul, Anxiety F41.9 and Chronic pain syndrome G89.4 [facility] [id number] [place] [address] 25042- 7720 Jun, Anxiety F41.9 [facility] [id number] [place] [address] 69835- 6701 Jun, Rheumatoid arthritis 714.0 [facility] [id number] [place] [address] 08383- 7943 Jun, Chronic pain syndrome G89.4 [facility] [id number] [place] [address] 19307- 7310 Jun, [facility] [id number] [place] [address] 48087- 0650 Jun, [facility] [id number] [place] [address] 13096- 6054 Jun, History of pneumonia Z87.01 and History of Clostridium difficile Z87.19 [facility] [id number] [place] [address] 63300- 5795 Jun, [facility] [id number] [place] [address] 13419- 2545 May, [facility] [id number] [place] [address] 83548- 5466 May, Anxiety F41.9 [facility] [id number] [place] [address] 77062- 2544 May, Chronic pain syndrome G89.4 [facility] [address] [place] [address] 12019- 8497 May, Chronic bronchitis, unspecified chronic bronchitis type J42 [facility] [id number] [place] [address] 69137- 5501 May, [facility] [id number] [place] [address] 90880- 9469 May, C. difficile diarrhea A04.7 ; Peripheral edema R60.9 ; COPD (chronic obstructive pulmonary disease) J44.9 ; Rheumatoid arthritis, involving unspecified site, unspecified rheumatoid factor presence M06.9 ; Pain in right knee M25.561 ; Pain in left knee M25.562 and Other chronic pain G89.29 [facility] [address] 85372- 7002 May, [facility] [id number] [place] [address] 31646- 9468 May, [facility] [id number] [place] [address] 15579- 5915 May, Anxiety F41.9 [facility] [id number] [place] [address] 35270- 9420 Apr, [facility] [id number] [place] [address] 32507- 7319 Apr, Chronic pain syndrome G89.4 [facility] [id number] [place] [address] 32207- 8151 Apr, Leg pain, left M79.605 [facility] [id number] [place] [address] 56934- 0493 Apr, [facility] [id number] [place] [address] 34820- 2990 Apr, [facility] [id number] [place] [address] 09295- 6127 Apr, [facility] [id number] [place] [address] 05349- 8579 Mar, Chronic pain syndrome G89.4 [facility] [address], [place] [address]- 0695 22 Mar, 2016 Acute frontal sinusitis, recurrence not specified J01.10 [facility] [id number] [place] [address] 68630- 8716 20 Mar, 2016 Iron deficiency anemia, unspecified iron deficiency anemia type D50.9 ; Rheumatoid arthritis with positive rheumatoid factor, involving unspecified site M05.9 and Depression, unspecified depression type F32.9 [facility] [id number] [place] [address] 54942- 2917 13 Mar, 2016 Iron deficiency anemia, unspecified iron deficiency anemia type D50.9 ; Depression, unspecified depression type F32.9 and Rheumatoid arthritis with positive rheumatoid factor, involving unspecified site M05.9 [facility] [id number] [place] [address] 41080- 4588 Mar, [facility] [id number] [place] [address] 16842- 0748 Mar, [facility] [id number] [place] [address] 97785- 8104 Feb, Chronic pain syndrome G89.4 [facility] [id number] [place] [address] 48042- 4812 30 Feb, 2016 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 ; Status post CVA Z86.73 ; Hemiplegia G81.90 and Anemia, unspecified type D64.9 [facility] [address], [place] [address]- 2172 Feb, [facility] [id number] [place] [address] 63148- 4477 Feb, Anemia, unspecified type D64.9 [place] [address], [place] [address]- 8525 Feb, [facility] [id number] [place] [address] 93391- 3024 Feb, Iron deficiency anemia, unspecified iron deficiency anemia type D50.9 [facility] [address] [place] [address] 86459- 9708 Feb, [facility] [id number] [place] [address] 26948- 3851 Feb, Chronic bronchitis, unspecified chronic bronchitis type J42 [facility] [id number] [place] [address] 71570- 0055 Feb, Iron deficiency anemia, unspecified iron deficiency anemia type D50.9 [facility] [id number] [place] [address] 46722- 8184 Feb, Chronic pain syndrome G89.4 [facility] [id number] [place] [address] 30337- 7645 Feb, Anemia, unspecified type D64.9 and Hypoxia R09.02 [facility] [id number] [place] [address] 08838- 6000 Feb, Anemia, unspecified type D64.9 [facility] [id number] [place] [address] 21733- 7135 Jan, [facility] [id number] [place] [address] 63229- 4026 Jan, Anemia, unspecified type D64.9 [facility] [id number] [place] [address] 20798- 0438 Jan, [facility] [id number] [place] [address] 23569- 5144 Jan, Anemia, unspecified type D64.9 [facility] [id number] [place] [address] 37174- 2634 Jan, Anemia, unspecified type D64.9 [facility] [id number] [place] [address] 14663- 3179 Jan, [facility] [id number] [place] [address] 58275- 6419 Jan, Anemia, unspecified type D64.9 [facility] [id number] [place] [address] 30585- 0789 Jan, [facility] [id number] [place] [address] 57423- 5575 Jan, [facility] [id number] [place] [address] 15269- 7750 Jan, Chronic pain syndrome G89.4 [facility] [id number] [place] [address] 38344- 9096 Jan, Anemia, unspecified type D64.9 [facility] [id number] [place] [address] 85876- 7686 Jan, Dysthymia F34.1 ; Cervicalgia M54.2 ; Fatigue, unspecified type R53.83 and Depression, unspecified depression type F32.9 [facility] [id number] [place] [address] 69432- 9891 Dec, [facility] [id number] [place] [address] 49594- 7726 Dec, Anxiety F41.9 [facility] [id number] [place] [address] 12845- 2159 Dec, Chronic pain syndrome G89.4 [facility] [id number] [place] [address] 89555- 4546 November, [facility] [id number] [place] [address] 84438- 9747 November, Edema R60.9 and Dizziness R42 [facility] [id number] [place] [address] 73892- 7966 November, [facility] [id number] [place] [address] 61686- 4387 November, [facility] [id number] [place] [address] 79415- 5415 November, COPD (chronic obstructive pulmonary disease) J44.9 ; Increased tracheal secretions J39.8 and Edema R60.9 [facility] [id number] [place] [address] 87280 -9412 Oct, [facility] [id number] [place] [address] 10197 -5443 Oct, Shortness of breath R06.02 and Edema R60.9 [facility] [id number] [place] [address] 16113- 2011 Oct, Chronic bronchitis, unspecified chronic bronchitis type J42 ; Peripheral vascular disease, unspecified I73.9 ; Rheumatoid arthritis M06.9 and Atrial fibrillation I48.91 [facility] [id number] [place] [address] [phone] Oct, [facility] [id number] [place] [address] [phone] Oct, [facility] [id number] [place] [address] [phone] Oct, [facility] [id number] [place] [address] [phone] Oct, [facility] [id number] [place] [phone] Oct, COPD exacerbation J44.1 [facility] [id number] [place] [address] [phone] Sep, [facility] [id number] [place] [address] [phone] Sep, [facility] [id number] [place], [place] [address] 30839- 5839 16 Sep, 2015 [facility] [id number] [place] [address] 03789- 4999 Aug, [facility] [id number] [place] [address] 32359- 4867 Aug, 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 and PVD (peripheral vascular disease ) I73.9 [facility] [id number] [place] [address] 31689- 5815 Aug, Bronchitis J40 ; COPD (chronic obstructive pulmonary disease ) J44.9 and Dysthymia F34.1 [facility] [id number] [place] [address] 04623- 1163 Aug, [facility] [address] 17552- 7646 Jul, [facility] [address] 33098- 0730 Jul, [facility] [id number] [place] [address] 84984- 3751 Jul, [facility] [id number] [place] [address] 88534- 8699 Jun, [facility] [id number] [place] [address] 07731- 2310 Jun, [facility] [id number] [place] [address] 37957- 0889 Jun, Peripheral vascular disease I73.9 [facility] [id number] [place] [address] 58421- 7287 Jun, [facility] [id number] [place] [address] 58368- 6963 Jun, [facility] [id number] [place] [address] 30785- 0615 Jun, Leg pain, left M79.605 ; Dysphagia, unspecified dysphagia R13.10 ; Insomnia, unspecified type G47.00 ; PVD (peripheral vascular disease) I73.9 and 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 [facility] [id number] [place] [address] 05371- 3857 May, [facility] [address] [id number] [place] [address]- 1857 May, [facility] [address] [facility] [id number] [place] [address]- 7646 May, [facility] [address] [facility] [id number] [place] [address]- 4540 May, [facility] [address] [facility] [id number] [place] [address], [place] [address]- 6016 May, [facility] [address] [facility] [id number] [place] [address], [place] [address]- 5924 Apr, [facility] [id number] [place] [address], [place] [address]- 7413 Apr, [facility] [id number] [place] [address]- 5504 Mar, [facility] [id number] [place] [address] 88426- 0366 Mar, [facility] [id number] [address]- 5181 Feb, [facility] [id number], [place] [address]- 8513 Feb, Nicotine abuse 305.1 ; Arthralgia 719.40 and 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 [facility] [id number], [place] [address]- 0720 Feb, [facility] [id number] [address]- 8240 Jan, [facility] [id number], [place] [address]- 3678 Jan, [facility] [address] [facility] [id number], [place] [address]- 7361 Jan, [facility] [id number], [place] [address]- 6343 Jan, [facility] [id number], [place] [address]- 1018 Jan, 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 ; Rheumatoid arthritis 714.0 ; Hypertension 401.9 ; GERD (gastroesophageal reflux disease) 530.81 ; Nicotine addiction 305.1 and Leukocytosis 288.60 [facility] [id number], [place] [address]- 4377 Jan, [facility] [id number], [place] [address]- 9639 Jan, [facility] [id number], [place] [address]- 0893 Jan, [facility] [id number], [place] [address]- 9149 Jan, [facility] [id number], [place] [address]- 5239 Jan, [facility] [id number], [place] [address]- 8490 Dec, [facility] [id number], [place] [address]- 1801 Dec, [facility] [id number], [place] [address]- 2886 Dec, [facility] [id number], [place] [address]- 3107 Dec, [facility] [id number] [id number] 0389 November, [facility] [id number], [place] [address]- 1207 November, [facility] [id number], [place] [address]- 2021 November, Shortness of breath 786.05 [facility] [address] [id number], [place] [address]- 7063 November, Rheumatoid arthritis 714.0 [facility] [id number], [place] [address]- 4569 November, 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 [facility] [id number] [place] [address] 26678- 5642 November, Neuropathy 355.9 ; Insomnia 780.52 ; Dysthymia 300.4 ; Shortness of breath 786.05 ; Rheumatoid arthritis 714.0 and Nausea 787.02 [facility] [id number] [place] [address] 49030- 8259 November, [facility] [id number] [place] [address] 91654- 9411 November, [facility] [id number] [place] [address] 05383- 7038 Oct, [facility] [id number] [place] [address] 95567- 0104 Oct, [facility] [id number] [place] [address] 84274- 8343 Oct, [facility] [id number] [place] [address] 39565- 9585 Oct, [facility] [address] [id number], [place] [address]- 8272 Sep, [facility] [id number], [place] [address]- 0869 Sep, [facility] [id number], [place] [address]- 4373 Sep, [facility] [id number] [place] [address] 84954- 2162 Sep, [facility] [address] [id number], [place] [address]- 4287 Sep, [facility] [id number] 8165 Sep, [facility] [place] [facility] [address] [id number] [place] [address]- 3691 Sep, [facility] [place] [facility] [address] [id number] [place] [address]- 3880 Sep, [facility] [place] [facility] [address] [id number] [place] [address]- 1398 Aug, [facility] [place] [facility] [address] [id number] [place] [address]- 8328 Aug, [facility] [place] [facility] [address] [id number] [place] [address]- 6948 Aug, [facility] [place] [facility] [address] [id number] [place] [address]- 2960 Aug, [facility] [place] [facility] [address] [facility] [id number] [place] [address]- 9870 Aug, [facility] [place] [facility] [address] [id number] [place] [address]- 7301 Aug, [facility] [place] [facility] [address] [id number] [place] [address]- 1127 Jul, [facility] [place] [facility] [address] [id number] [place] [address]- 9132 Jul, [facility] [place] [facility] [address] [facility] [id number], [place] [address]- 4846 Jul, [facility] [place] [facility] [address] [id number], [place] [address]- 4017 Jul, [facility] [place] [facility] [address] [id number] [place] [address]- 5442 Jul, [facility] [place] [facility] [address] [id number] [place] [address]- 8468 Jul, [facility] [place] [facility] [address] [facility] [id number], [place] [address]- 5742 Jul, [facility] [place] [facility] [address] [id number], [place] [address]- 2258 Jul, [facility] [place] [facility] [address] [id number] [place] [address]- 5759 Jul, [facility] [place] [facility] [address] [id number] [place] [address]- 8350 Jul, [facility] [place] [facility] [address] [id number] [place] [address]- 9887 Jun, [facility] [place] [facility] [address] [id number] [place] [address]- 0338 Jun, [facility] [place] [facility] [address] [id number] [place] [address]- 9722 Jun, [facility] [place] [facility] [address] [id number] [place] [address]- 8963 Jun, [facility] [place] [facility] [address] [id number] [place] [address]- 4768 Jun, [facility] [place] [facility] [address] [id number] [place] [address]- 0020 Jun, [facility] [place] [facility] [address] [id number] [place] [address]- 4325 Jun, [facility] [place] [facility] [address] [id number] [place] [address]- 2664 Jun, [facility] [place] [facility] [address] [id number] [place] [address]- 4147 Jun, [facility] [place] [facility] [address] [id number] [place] [address]- 1043 Jun, [facility] [place] [facility] [address] [id number] [place] [address]- 1621 Jun, [facility] [place] [facility] [address] [id number] [place] [address]- 5166 Jun, [facility] [place] [facility] [address] [facility] [id number] [place] [address]- 2614 Jun, [facility] [place] [facility] [address] [id number] [place] [address]- 8758 Jun, [facility] [place] [facility] [address] [id number] [place] [address]- 4028 Jun, [facility] [place] [facility] [address] [id number] [place] 4082 Jun, [facility] [place] [facility] [address] [id number] [place] [address]- 5074 May, [facility] [place] [facility] [address] [id number] [place] [address]- 1382 May, [facility] [place] [facility] [address] [id number] [place] [address]- 0568 May, [facility] [place] [facility] [address] [id number] [place] [address]- 1202 May, [facility] [place] [facility] [address] [id number] [place] [address]- 3142 May, [facility] [place] [facility] [address] [id number] [place] [address]- 5476 May, [facility] [place] [facility] [address] [id number] [place] [address]- 0065 May, [facility] [place] [facility] [address] [facility] [id number] [place] [address]- 4873 May, [facility] [place] [facility] [address] [id number] [place] [address]- 5950 May, [facility] [place] [facility] [address] [id number] [place] [address]- 7133 Apr, [facility] [place] [facility] [address] [id number] [place] [address]- 0652 Apr, [facility] [place] [facility] [address] [id number] [place] [address]- 3031 Apr, [facility] [place] [facility] [address] [id number] [place] [address]- 9452 13 Apr, 2014 [facility] [place] [facility] [address] [id number] [place] [address]- 0644 Apr, [facility] [place] [facility] [address] [id number] [place] [address]- 3256 Apr, [facility] [place] [facility] [address] [id number] [place] [address]- 5826 Apr, [facility] [place] [facility] [address] [id number] [place] [address]- 0345 Apr, [facility] [place] [facility] [address] [id number] [place] [address]- 3633 Apr, [facility] [place] [facility] [address] [id number] [place] [address]- 0009 Apr, [facility] [place] [facility] [address] [id number] [place] [address]- 6915 Apr, [facility] [place] [facility] [address] [id number] [place] [address]- 8813 Apr, [facility] [place] [facility] [address] [id number] [place] [address]- 8603 22 Mar, 2014 [facility] [place] [facility] [address] [id number] [place] [address]- 2257 22 Mar, 2014 [facility] [place] [facility] [address] [id number], [place] [address]- 6106 19 Mar, 2013 [facility] [place] [facility] [address] [id number], [place] [address]- 6575 19 Mar, 2013 [facility] [place] [facility] [address] [id number] [place] [address]- 5349 11 Mar, 2013 [facility] [place] [facility] [address] [id number], [place] [address]- 3861 11 Mar, 2013 [facility] [place] [facility] [address] [id number], [place] [address]- 2016 11 Mar, 2013 [facility] [place] [facility] [address] [id number] [place] [address]- 2217 Mar, [facility] [place] [facility] [address] [id number] [place] [address]- 4620 Mar, [facility] [place] [facility] [address] [id number] [place] [address]- 3540 Mar, [facility] [place] [facility] [address] [id number] [place] [address]- 2304 Feb, [facility] [place] [facility] [address] [id number] [place] [address]- 0113 Feb, [facility] [place] [facility] [address] [id number] [place] [address]- 3678 Feb, [facility] [place] [facility] [address] [id number] [place] [address]- 2230 Feb, [facility] [place] [facility] [address] [id number] [place] [address]- 0823 Feb, [facility] [place] [facility] [address] [id number] [place] [address]- 1634 Feb, [facility] [place] [facility] [address] [id number] [place] [address]- 4550 Feb, [facility] [place] [facility] [address] [id number] [place] [address]- 7279 Feb, [facility] [place] [facility] [address] [id number] [place] [address]- 6061 Feb, [facility] [place] [facility] [address] [id number] [place] [address]- 3652 Feb, [facility] [place] [facility] [address] [id number] [place] [address]- 0335 Feb, [facility] [place] [facility] [address] [id number] [place] [address]- 4386 Feb, [facility] [place] [facility] [address] [id number] [place] [address]- 0775 Feb, [facility] [place] [facility] [address] [id number] [place] [address]- 1550 Feb, [facility] [place] [facility] [address] [id number] [place] [address]- 0162 Feb, [facility] [place] [facility] [address] [id number] [place] [address]- 8839 Feb, [facility] [place] [facility] [address] [id number] [place] [address]- 7948 Jan, [facility] [place] [facility] [address] [id number] [place] [address]- 4744 Jan, [facility] [place] [facility] [address] [id number] [place] [address]- 7939 Jan, [facility] [place] [facility] [address] [id number] [place] [address]- 3503 Jan, [facility] [place] [facility] [address] [id number] [place] [address]- 9201 Jan, [facility] [place] [facility] [address] [id number] [place] [address]- 0858 Jan, [facility] [place] [facility] [address] [id number] [place] [address]- 3674 Dec, [facility] [place] [facility] [address] [id number] [place] [address]- 9499 Dec, [facility] [place] [facility] [address] [id number] [place] [address]- 7190 Dec, [facility] [place] [facility] [address] [id number] [place] [address]- 0943 Dec, [facility] [place] [facility] [address] [id number] [place] [address]- 2081 Dec, [facility] [place] [facility] [address] [id number] [place] [address]- 7044 Dec, [facility] [place] [facility] [address] [id number] [place] [address]- 8153 Dec, [facility] [place] [facility] [address] [id number] [place] [address]- 2073 Dec, [facility] [place] [facility] [address] [id number] [place] [address]- 7650 November, [facility] [place] [facility] [address] [id number] [place] [address]- 4349 November, [facility] [place] [facility] [address] [id number] [place] [address]- 8801 November, [facility] [place] [facility] [address] [id number] [place] [address]- 7774 November, [facility] [place] [facility] [address] [id number] [place] [address]- 0588 November, [facility] [place] [facility] [address] [id number] [place] [address]- 0952 November, [facility] [place] [facility] [address] [id number] [place] [address]- 3640 Oct, [facility] [place] [facility] [address] [id number] [place] [address]- 3817 Oct, [facility] [place] [facility] [address] [id number] [place] [address]- 1602 Oct, [facility] [place] [facility] [address] [id number] [place] [address]- 2446 Oct, [facility] [place] [facility] [address] [id number] [place] [address]- 1738 Sep, [facility] [place] [facility] [address] [id number] [place] [address]- 1619 Sep, [facility] [place] [facility] [address] [id number] [place] [address]- 0870 Sep, [facility] [place] [facility] [address] [id number] [place] [address]- 9242 Sep, [facility] [place] [facility] [address] [id number] [place] [address]- 6683 Sep, [facility] [place] [facility] [address] [id number] [place] [address]- 5141 Sep, [facility] [place] [facility] [address] [id number] [place] [address]- 3236 Aug, [facility] [place] [facility] [address] [id number] [place] [address]- 7516 Aug, [facility] [place] [facility] [address] [id number] [place] [address]- 2935 Aug, [facility] [place] [facility] [address] [id number] [place] [address]- 5206 Aug, [facility] [place] [facility] [address] [id number] [place] [address]- 7566 Aug, [facility] [place] [facility] [address] [id number] [place] [address]- 0882 Aug, [facility] [place] [facility] [address] [id number] [place] [address]- 9038 Jul, [facility] [place] [facility] [address] [id number] [place] [address]- 5925 Jul, [facility] [place] [facility] [address] [id number] [place] [address]- 0717 Jul, [facility] [place] [facility] [address] [id number] [place] [address]- 8504 Jul, [facility] [place] [facility] [address] [id number] [place] [address]- 4710 Jul, [facility] [place] [facility] [address] [id number] [place] [address]- 254 Jul, [facility] [place] [facility] [address] [id number] [place] [address]- 3418 Jul, [facility] [place] [facility] [address] [id number] [place] [address]- 9389 Jul, [facility] [address] [id number] [place] [address]- 1741 Jul, [facility] [address] [id number] [place] [address]- 7980 Jul, [facility] [address] [facility] [id number] [place] [address]- 5587 Jul, [facility] [address] [id number] [place] [address]- 0865 Jul, [facility] [address] [id number] [place] [address]- 1846 Jul, [facility] [address] [id number] [place] [address] Jul, [facility] [address] [id number], [place] [address] Jul, [facility] [address] [id number], [place] [address] Jun, [facility] [address] [id number], [place] [address] Jun, [facility] [address] [facility] [id number], [place] [address] Jun, [facility] [address] [facility] [id number], [place] [address] Jun, [facility] [address] [id number], [place] [address] May, [facility] [address] [facility] [id number], [place] [address] May, [facility] [address] [id number][place] [id number] May, [facility] [address] [facility] [id number], [place] [address] May, [facility] [address] [facility] [id number], [place] [address] May, [facility] [id number] [address] May, [facility] [id number] [address] May, [facility] [id number] [address] May, [facility] [id number] [address] May, [facility] [id number] [id number] May, [facility] [id number] [address] May, [facility] [id number] [id number] May, [facility] [id number], [place] [address] May, [facility] [id number] [id number] May, [facility] [address] [id number], [place] [address] May, IMMUNIZATIONS No Known Immunizations SOCIAL HISTORY Never Assessed REASON FOR VISIT Controlled Med Refill 06/23 PLAN OF CARE VITAL SIGNS MEDICATIONS Medication [...] WNL 03/2016 Surgical History Rt TKA 12/24/16 Surgical History SVT pathway ablation by [facility] Ruiz 01/2018 Surgical History oral cancer 01/2018 Surgical History g tube placement Failed swallow study 01/2018 Surgical History loop placement 03/2018 Hospitalization History amputation transmetatarsal Hospitalization History hip replacement Hospitalization History CVA 12/2014 Hospitalization History Exacerbation COPD 10/23/15 Hospitalization History Diarrhea, leukocytosis--[facility] 01/08/16 Hospitalization History pseudomemranous colitis, sepsis--[facility] 04/21/2016 Hospitalization History C Diff--[facility] 05/10/2016 Hospitalization History sepsis, pneumonia, diarrhea--[facility] 06/11/16 Hospitalization History recurrent cdiff, pneumonia-[facility] 07/22/16 Hospitalization History sepsis,pneumonia- [facility]
--- OUTSIDE RECORDS SUMMARY | 2018-09-02 10:37 | XMS REPORT ---
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 786915212 Problem Chronic pain syndrome G89.4 Active 991493920 Problem Leg pain, left M79.605 Active 814050559 Problem Anxiety F41.9 Active 50495782 Problem Dysphagia, unspecified dysphagia R13.10 Active 65701014 Problem Depression, unspecified depression type F32.9 Active 22059764 Problem Iron deficiency anemia, unspecified iron deficiency anemia type D50.9 Active 87896401 Problem Anemia, unspecified type D64.9 Active 104124354 Problem History of oral cancer Z85.819 Active 547464719 Problem Seasonal allergic rhinitis due to pollen J30.1 Active 66582083 Problem 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 573364962 Problem History of cerebrovascular accident with current residual effects I69.90 Active 477732043 Problem Peripheral vascular disease, unspecified I73.9 Active 876816930 Problem Chronic obstructive pulmon disease w acute lower resp infct J44.0 Active 634038970 Problem Other chronic pain G89.29 Active 68715826 Problem Insomnia, unspecified G47.00 Active 037071490 Problem Primary insomnia F51.01 Active 6684898 Problem Rheumatoid arthritis M06.9 Active 21473091 Problem Atrial fibrillation I48.91 Active 83241593 Problem Osteoarthritis of foot M19.079 Active 101795350 Problem Hypertension I10 Active 64474015 Problem Tobacco abuse, 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 Diff Drug Allergy Apr, Active ENCOUNTERS Encounter Location Date Diagnosis [facility] [address] [address] Apr, Cough R05 and Viral illness B34.9 [facility] [address] [address] Apr, Encounter for immunization Z23 [place] [address] [address] Apr, Chronic pain syndrome G89.4 [facility] [address] [address] Apr, Left acute otitis media H66.92 [facility] [address] [address] Mar, Rheumatoid arthritis M06.9 ; Other chronic pain G89.29 ; History of oral cancer Z85.819 and History of tachycardia Z87.898 [place] [address] [address] Mar, Chronic pain syndrome G89.4 [place] [address] [place] [id number] [place] [address]- 7099 Feb, Chronic pain syndrome G89.4 [facility] [address] [address] Feb, Chronic pain syndrome G89.4 [facility] [address] [address] Jan, Chronic pain syndrome G89.4 [facility] [address] [address] Jan, [facility] [address] [address] Dec, Chronic pain syndrome G89.4 [facility] [address] [address] November, Chronic pain syndrome G89.4 [facility] [address] [address] November, [facility] [address] [place] [address] 13917- 8799 Oct, Chronic pain syndrome G89.4 [facility] [address] [address] Oct, [facility] [address] [place] [address]29- 2894 Oct, Chronic pain syndrome G89.4 [facility] [address] [place] [address] 03987- 1053 Oct, [facility] [address] [address] Oct, [facility] [address] [address] Sep, Left upper quadrant pain R10.12 ; Chronic pain syndrome G89.4 ; Left lower quadrant pain R10.32 ; Other chronic pain G89.29 ; Sacrococcygeal disorders, not elsewhere classified M53.3 and Seasonal allergic rhinitis due to pollen J30.1 [facility] [address], [place] [address] Sep, Chronic pain syndrome G89.4 [facility] [address] [address] 7[address] Sep, [facility] [address] [address] Aug, Chronic pain syndrome G89.4 [facility] [address] [address] 240[address] Aug, [place] [address] [address] 4[address] Aug, Insomnia, unspecified G47.00 [place] [address] [place] [id number] [place] [address] 17791- 4952 Jul, [place] [address] [place] [id number] [place] [address] 72632- 1258 Jul, [place] [address] [place] [id number] [place] [address] 50976- 7613 Jul, Chronic pain syndrome G89.4 [place] [address] [place] [id number] [place] [address] 97335- 2522 Jun, Chronic pain syndrome G89.4 [place] [address] [place] [id number] [place] [address] 96756- 7040 Jun, Chronic pain syndrome G89.4 [place] [address] [place] [id number] [place] [address] 59147- 3918 May, [place] [address] [place] [id number] [place] [address] 21955- 3198 May, Shortness of breath R06.02 ; Peripheral vascular disease, unspecified I73.9 ; Pain in right knee M25.561 ; Other chronic pain G89.29 ; Chest wall pain R07.89 ; Chronic pain syndrome G89.4 ; Primary insomnia F51.01 and Ear pain, left H92.02 [place] [address] [place] [id number] [place] [address] 91956- 9367 May, Anxiety F41.9 [place] [address] [place] [address] 87961- 9247 Apr, Pneumonia due to infectious organism, unspecified laterality , unspecified part of lung J18.9 ; Hypoxia R09.02 ; Bradycardia R00.1 ; History of Clostridium difficile Z87.19 and Primary insomnia F51.01 [place] [address] [place] [address] 75324- 0867 Apr, Anxiety F41.9 [facility] [address] [address] [id number] [place] [address] 72059- 5891 Apr, [facility] [address] [place] [id number] [place] [address] 177[address]- 1961 Mar, Anxiety F41.9 [facility] [address] [address] [id number] [place] [address] 45534- 1699 Feb, [facility] [address] [id number] [place] [address] 96356- 5365 Feb, [facility] [address] [place] [address] [id number] [place] [address] 09036- 2819 Feb, Abnormal finding on urinalysis R82.90 [facility] [address] [place] [id number] [place] [address] 76526- 0084 Feb, [facility] [address] [address] Feb, Shortness of breath R06.02 ; Tachycardia R00.0 ; Cough R05 ; Ill feeling R68.89 and Abnormal finding on urinalysis R82.90 [facility] [address] [place] [id number] [place] [address] 16444- 9225 Feb, Anxiety F41.9 [facility] [address] [place] [id number] [place] [address]71 Feb, Sore throat J02.9 and Acute diffuse otitis externa of left ear H60.312 [facility] [address] [place] [address] [id number] [place] [address] 29675- 4351 Jan, [facility] [address] [address] [id number] [place] [address] 97306- 2479 Jan, [facility] [address] [id number] Jan, [facility] [address] [address] [id number] [place] [address] 29392- 7820 Jan, Depression, unspecified depression type F32.9 ; Chronic bronchitis, unspecified chronic bronchitis type J42 ; Chronic pain syndrome G89.4 and Anxiety F41.9 [facility] [address] [id number] [place] [address] 51534- 0028 Jan, [facility] [address] [id number] [place] [address] 95692- 2365 Jan, [facility] [address] [place] [id number] [place] [address] 80170- 4550 Jan, [facility] [address] [place] [id number] [place] [address] [id number] Jan, Chronic pain syndrome G89.4 [facility] [address] [place] [id number] Dec, History of right knee surgery Z98.890 [place] [address] [place] [id number] [place] [address] 86452- 0410 Dec, [facility] [address] [place] [id number] [place] [address] 28698- 0504 Dec, Chronic pain syndrome G89.4 [facility] [address] [place] [id number] [place] [address] 30513- 6351 November, Anxiety F41.9 [facility] [address] [place] [address] 68547 -3825 November, Acute cystitis without hematuria N30.00 [facility] [address] [place] [address] 88370 -9824 November, Fever, unspecified fever cause R50.9 and Acute cystitis without hematuria N30.00 [facility] [address] [place] [id number] [place] [address] 68491- 9859 November, Chronic pain syndrome G89.4 [facility] [address] [place] [address] 27255- 7169 Oct, Anxiety F41.9 [facility] [address] [place] [id number] [place] [address] 46511- 4374 Oct, Chronic pain syndrome G89.4 [facility] [address], [place] [address]- 8089 Oct, Chronic pain syndrome G89.4 [facility] [address] [address]- 0138 Oct, [facility] [address] [place] [address] 50682- 1958 Oct, Chronic pain syndrome G89.4 ; Pain in right knee M25.561 ; History of Clostridium difficile Z87.19 ; Iron deficiency anemia, unspecified iron deficiency anemia type D50.9 ; Peripheral vascular disease, unspecified I73.9 and Atrial fibrillation I48.91 [place] [address] [address]- 0188 Oct, [place] [address] [place] [address] 63395- 2191 Oct, Chronic pain syndrome G89.4 [facility] [address] [address]- 9690 Sep, [facility] [address] [place] [address] 79065- 9268 Sep, Depression, unspecified depression type F32.9 ; Chronic bronchitis, unspecified chronic bronchitis type J42 ; Chronic pain syndrome G89.4 and Anxiety F41.9 [facility] [address] [place] [id number] Sep, History of Clostridium difficile infection Z86.19 and History of stroke Z86.73 [facility] [id number] [id number] Sep, Anxiety F41.9 [place] [address] [place] [address] 88554- 7027 Sep, Chronic pain syndrome G89.4 [facility] [address] [address]- 9092 Sep, [place] [address] [place] [id number] [id number] Sep, [facility] [address] [place] [address] 45188- 4011 Aug, Anxiety F41.9 [facility] [address], [place] [address]- 3165 Aug, Anxiety F41.9 [facility] [address] [place] [address] 31440- 4237 Aug, [facility] [address] [place] [address] 63108- 8152 14 Aug, 2016 Acute knee pain, unspecified laterality M25.569 [facility] [address] [place] [address] 57720- 6661 13 Aug, 2016 [facility] [address] [place] [address] 59965- 1900 Aug, Chronic pain syndrome G89.4 [facility] [address] [place] [address] 48913- 1474 Aug, [facility] [address] [place] [address] 21426- 4272 Aug, [facility] [address] [address]- 0148 Jul, [facility] [address] [place] [address] 88798- 5688 Jul, Anxiety F41.9 [facility] [address], [place] [address]- 5371 Jul, Clostridium difficile diarrhea A04.7 [facility] [address] [place] [id number] Jul, Clostridium difficile diarrhea A04.7 ; Chronic pain syndrome G89.4 ; Chronic obstructive pulmon disease w acute lower resp infct J44.0 and Pain in right knee M25.561 [facility] [address] [place] [id number] [place] [id number] Jul, [facility] [address], [place] [address] Jul, Anxiety F41.9 and Chronic pain syndrome G89.4 [facility] [address] [address]- 7742 Jun, Anxiety F41.9 [facility] [address] [place] [id number] [place] [address] 95566- 4545 Jun, Rheumatoid arthritis 714.0 [facility] [address] [place] [id number] [place] [address] 28908- 8377 Jun, Chronic pain syndrome G89.4 [facility] [address] [place] [id number] [place] [address] 27195- 3172 Jun, [facility] [address] [id number] [place] [address] 37891- 1513 Jun, [facility] [address] [id number] [place] [address] 19255- 2995 Jun, History of pneumonia Z87.01 and History of Clostridium difficile Z87.19 [facility] [address] [place] [address] 88033- 5694 Jun, [facility] [address] [address]- 8145 May, [facility] [address] [place] [address] 41492- 9405 May, Anxiety F41.9 [facility] [address] [address]- 6874 May, Chronic pain syndrome G89.4 [facility] [address] [place] [address] 73090- 8273 May, Chronic bronchitis, unspecified chronic bronchitis type J42 [facility] [address] [place] [address] 69950- 7042 May, [facility] [address] [place] [address] 21626- 1495 May, C. difficile diarrhea A04.7 ; Peripheral edema R60.9 ; COPD (chronic obstructive pulmonary disease) J44.9 ; Rheumatoid arthritis, involving unspecified site, unspecified rheumatoid factor presence M06.9 ; Pain in right knee M25.561 ; Pain in left knee M25.562 and Other chronic pain G89.29 [facility] [id number] [place] [address] 49016- 4407 May, [facility] [address] [id number] [place] [address] 92514- 9795 May, [facility] [address] [place] [id number] [place] [address] 04665- 3173 May, Anxiety F41.9 [facility] [address] [place] [id number] [place] [address] 31423- 2703 Apr, [facility] [address] [place] [id number] [place] [address] 33561- 9955 Apr, Chronic pain syndrome G89.4 [facility] [address] [place] [id number] [place] [address] 36863 2546 Apr, Leg pain, left M79.605 [facility] [address] [id number] [place] [address] 01614- 9996 Apr, [facility] [address] [id number] [place] [address] 18418- 3748 Apr, [facility] [address] [id number] [place] [address] 00643- 2468 Apr, [facility] [address] [place] [id number] [place] [address] 86237 2546 Mar, Chronic pain syndrome G89.4 [facility] [address] [id number] [place] [address] 46903 2546 Mar, Acute frontal sinusitis, recurrence not specified J01.10 [place] [address], [place] [address]- 3369 Mar, Iron deficiency anemia, unspecified iron deficiency anemia type D50.9 ; Rheumatoid arthritis with positive rheumatoid factor, involving unspecified site M05.9 and Depression, unspecified depression type F32.9 [place] [address], [place] [address]- 3289 Mar, Iron deficiency anemia, unspecified iron deficiency anemia type D50.9 ; Depression, unspecified depression type F32.9 and Rheumatoid arthritis with positive rheumatoid factor, involving unspecified site M05.9 [place] [address] [place] [address] 09980- 0911 Mar, [place] [address] [id number] [place] [address] 21239- 0967 Mar, [place] [id number] [place] [address] 43929- 7842 Feb, Chronic pain syndrome G89.4 [place] [address] [id number] [place] [address] 41348- 2094 Feb, 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 ; Status post CVA Z86.73 ; Hemiplegia G81.90 and Anemia, unspecified type D64.9 [place] [address], [place] [address]- 2676 Feb, [place] [address], [place] [address]- 7418 Feb, Anemia, unspecified type D64.9 [place] [address] [address]- 3110 Feb, [place] [id number] [place] [address] 06161- 7005 Feb, Iron deficiency anemia, unspecified iron deficiency anemia type D50.9 [place] [address] [address]- 3575 Feb, [place] [address] [address]- 2384 Feb, Chronic bronchitis, unspecified chronic bronchitis type J42 [facility] [id number] [place] [address] 54047- 7274 Feb, Iron deficiency anemia, unspecified iron deficiency anemia type D50.9 [facility] [id number] [place] [address] 33693- 9964 Feb, Chronic pain syndrome G89.4 [facility] [address] [place] [address] 24810- 6330 Feb, Anemia, unspecified type D64.9 and Hypoxia R09.02 [facility] [id number] [place] [address] 61550- 4799 Feb, Anemia, unspecified type D64.9 [facility] [id number] [place] [address] 61273- 7728 Jan, [facility] [address] [place] [address] 01989- 5785 Jan, Anemia, unspecified type D64.9 [facility] [address] [place] [address] 87245- 7538 Jan, [facility] [address] [address]- 8965 Jan, Anemia, unspecified type D64.9 [facility] [address] [place] [address] 16559- 2080 Jan, Anemia, unspecified type D64.9 [facility] [address], [place] [address]- 3088 Jan, [facility] [address] [place] [address] 50838- 1283 Jan, Anemia, unspecified type D64.9 [facility] [address] [address]- 1639 Jan, [facility] [address] [address]- 6582 Jan, [facility] [id number] [place] [address] 60404- 2560 Jan, Chronic pain syndrome G89.4 [facility] [id number] [place] [address] 43204- 5700 Jan, Anemia, unspecified type D64.9 [facility] [id number] [place] [address] 43447- 3474 Jan, Dysthymia F34.1 ; Cervicalgia M54.2 ; Fatigue, unspecified type R53.83 and Depression, unspecified depression type F32.9 [facility] [id number] [place] [address] 33099- 7726 Dec, [facility] [id number] [place] [address] 93257- 8028 Dec, Anxiety F41.9 [facility] [id number] [place] [address] 14502- 0110 Dec, Chronic pain syndrome G89.4 [facility] [id number] [place] [address] 76612- 5938 November, [facility] [id number] [place] [address] 36389- 4229 November, Edema R60.9 and Dizziness R42 [facility] [id number] [place] [address] 29198- 3153 November, [facility] [id number] [place] [address] 94820- 3112 November, [facility] [id number] [place] [address] 51366- 8774 November, COPD (chronic obstructive pulmonary disease) J44.9 ; Increased tracheal secretions J39.8 and Edema R60.9 [facility] [address] [address] 29 Oct, 2015 [facility] [id number] [place] [phone] 28 Oct, 2015 Shortness of breath R06.02 and Edema R60.9 [facility] [id number] [place] [address] [phone]- 9824 20 Oct, 2015 Chronic bronchitis, unspecified chronic bronchitis type J42 ; Peripheral vascular disease, unspecified I73.9 ; Rheumatoid arthritis M06.9 and Atrial fibrillation I48.91 [facility] [id number] [place] [address] [phone] 1060 19 Oct, 2015 [facility] [id number] [place] [address] [phone]- [phone] 13 Oct, 2015 [facility] [id number] [place] [address] [phone] Oct, [facility] [id number] [place] [address] [phone] Oct, [facility] [id number] [place] [phone][phone] 12 Oct, 2015 COPD exacerbation J44.1 [facility] [id number] [place] [address] [phone]- [phone] 28 Sep, 2015 [facility] [id number] [place] [address] [phone]- [phone] 17 Sep, 2015 [facility] [id number] [place] [address] [phone]- [phone] 16 Sep, 2015 [facility] [id number] [place] [address] 50989- 0224 17 Aug, 2015 [facility] [id number] [place] [address] [phone]- 9194 16 Aug, 2015 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 and PVD (peripheral vascular disease ) I73.9 [facility] [id number] [place] [address] [phone]- [phone] Aug, Bronchitis J40 ; COPD (chronic obstructive pulmonary disease ) J44.9 and Dysthymia F34.1 [facility] [id number] [place] [address] [phone]- [phone] Aug, [facility] [id number] [place] [address] [phone]- [phone] Jul, [facility] [address] [phone] Jul, [facility] [id number] [place] [place] [address] 42156- 0417 Jul, [facility] [id number] [place] [address] 01111- 3923 Jun, [facility] [id number] [place] [address] 97080- 4620 Jun, [facility] [id number] [place] [address] 62489- 9877 Jun, Peripheral vascular disease I73.9 [facility] [id number] [place] [address] 40415- 5910 Jun, [facility] [id number] [place] [address] 08629- 0688 Jun, [facility] [id number] [place] [address] 14094- 5079 Jun, Leg pain, left M79.605 ; Dysphagia, unspecified dysphagia R13.10 ; Insomnia, unspecified type G47.00 ; PVD (peripheral vascular disease) I73.9 and 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 [facility] [id number] [place] [address] 45620- 5736 May, [facility] [id number] [place] [address] 19884- 6026 May, [facility] [id number] [place] [address] 47029- 7420 May, [facility] [id number], [place] [address] 9435 May, [facility] [id number], [place] [address]- 9673 May, [facility] [id number], [place] [address]- 6286 Apr, [facility] [id number], [place] [address]- 6867 Apr, [facility] [id number], [place] [address]- 1111 Mar, [facility] [address], [place] [address]- 8990 Mar, [facility] [id number], [place] [address]- 3983 Feb, [facility] [id number], [place] [address]- 9718 Feb, Nicotine abuse 305.1 ; Arthralgia 719.40 and 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 [facility] [id number], [place] [address]- 2317 Feb, [facility] [id number], [place] [address]- 0263 Jan, [facility] [id number] [address]- 0852 Jan, [facility] [id number] [address] 1985 Jan, [facility] [id number] [address]- 2752 Jan, [facility] [id number] 7336 Jan, 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 ; Rheumatoid arthritis 714.0 ; Hypertension 401.9 ; GERD (gastroesophageal reflux disease) 530.81 ; Nicotine addiction 305.1 and Leukocytosis 288.60 [facility] [id number] 5246 Jan, [facility] [id number], [place] [address]- 3620 Jan, [facility] [id number] [place] [address] 908434- 9054 Jan, [facility] [id number], [place] [address]- 7002 Jan, [facility] [id number] [place] [address] 09010- 4500 Jan, [facility] [id number] [address]- 3592 Dec, [facility] [id number] [place] [address] 87449- 7349 Dec, [facility] [id number], [place] [address]- 4233 Dec, [facility] [id number], [place] [address]- 0410 Dec, [facility] [id number], [place] [address]- 0770 November, [facility] [id number], [place] [address]- 9973 November, [facility] [address] [id number], [place] [address]- 2576 November, Shortness of breath 786.05 [facility] [id number], [place] [address]- 5660 November, Rheumatoid arthritis 714.0 [facility] [id number], [place] [address]- 5214 November, 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 [facility] [id number], [place] [address]- 8392 November, Neuropathy 355.9 ; Insomnia 780.52 ; Dysthymia 300.4 ; Shortness of breath 786.05 ; Rheumatoid arthritis 714.0 and Nausea 787.02 [facility] [address], [place] [address]- 0354 November, [facility] [id number] [place] [address] 81879- 5400 November, [facility] [id number] [place] [address] 63536- 9578 Oct, [facility] [id number] [place] [address] 00722- 3038 Oct, [facility] [id number] [place] [address] 97938- 6405 Oct, [facility] [id number] [place] [address] 84396- 7967 Oct, [facility] [id number] [place] [address] 77821- 3304 Sep, [facility] [id number] [place] [address] 00600- 9793 Sep, [facility] [id number] [address]- 8948 Sep, [facility] [id number] [place] [address] 45205- 7325 Sep, [facility] [id number] 2759 Sep, [facility] [id number] [place] [address] 94993- 0788 Sep, [facility] [id number], [place] [address]- 9687 Sep, [facility] [id number] [place] [address] 37537- 5751 Sep, [facility] [place] [facility] [address] [id number] [place] [address]- 1208 Aug, [facility] [place] [facility] [address] [id number] [place] [address]- 2496 Aug, [facility] [place] [facility] [address] [id number] [place] [address]- 5286 Aug, [facility] [place] [facility] [address] [id number] [place] [address]- 7974 Aug, [facility] [place] [facility] [address] [id number] [place] [address]- 7387 Aug, [facility] [place] [facility] [address] [id number] [place] [address]- 0087 Aug, [facility] [place] [facility] [address] [facility] [id number] [place] [address]- 5741 Jul, [facility] [place] [facility] [address] [id number] [place] [address]- 3266 Jul, [facility] [place] [facility] [address] [id number] [place] [address]- 6271 Jul, [facility] [place] [facility] [address] [facility] [id number] [place] [address]- 1378 Jul, [facility] [place] [facility] [address] [id number] [place] [address]- 3490 Jul, [facility] [place] [facility] [address] [id number] [address]- 0208 Jul, [facility] [place] [facility] [address] [id number] [place] [address]- 9042 Jul, [facility] [place] [facility] [address] [id number] [place] [address]- 7796 Jul, [facility] [place] [facility] [address] [facility] [id number], [place] [address]- 9474 Jul, [facility] [place] [facility] [address] [id number] [place] [address]- 0888 Jul, [facility] [place] [facility] [address] [id number] [place] [address]- 2005 Jun, [facility] [place] [facility] [address] [id number] [place] 8971 Jun, [facility] [place] [facility] [address] [id number] [place] [address]- 9441 Jun, [facility] [place] [facility] [address] [id number] [place] [address]- 4241 Jun, [facility] [place] [facility] [address] [id number] [place] [address]- 8815 Jun, [facility] [place] [facility] [address] [id number] [place] [address]- 8822 Jun, [facility] [place] [facility] [address] [id number] [place] [address]- 9953 Jun, [facility] [place] [facility] [address] [id number] [place] [address]- 9167 Jun, [facility] [place] [facility] [address] [id number] [place] [address]- 8687 Jun, [facility] [place] [facility] [address] [id number] [place] [address]- 8480 Jun, [facility] [place] [facility] [address] [id number] [place] [address]- 0146 Jun, [facility] [place] [facility] [address] [id number] [place] [address]- 5274 Jun, [facility] [place] [facility] [address] [id number] [place] [address]- 4926 Jun, [facility] [place] [facility] [address] [id number] [place] 0558 Jun, [facility] [place] [facility] [address] [id number] [place] [address]- 4351 Jun, [facility] [place] [facility] [address] [id number] [place] [address]- 1190 Jun, [facility] [place] [facility] [address] [id number] [place] [address]- 9057 May, [facility] [place] [facility] [address] [id number] [place] [address]- 2813 May, [facility] [place] [facility] [address] [id number] [place] [address]- 1396 May, [facility] [place] [facility] [address] [id number] [place] [address]- 9672 May, [facility] [place] [facility] [address] [id number] [place] [address]- 2878 May, [facility] [place] [facility] [address] [id number] [place] [address]- 6324 May, [facility] [place] [facility] [address] [id number], [place] [address]- 5282 May, [facility] [place] [facility] [address] [id number] [place] [address]- 5864 May, [facility] [place] [facility] [address] [id number], [place] [address]- 1759 May, [facility] [place] [facility] [address] [id number], [place] [address]- 6540 Apr, [facility] [place] [facility] [address] [id number], [place] [address]- 0210 Apr, [facility] [place] [facility] [address] [id number], [place] [address]- 0344 Apr, [facility] [place] [facility] [address] [id number], [place] [address]- 8631 Apr, [facility] [place] [facility] [address] [id number], [place] [address]- 0171 Apr, [facility] [place] [facility] [address] [id number] [place] [address]- 5852 10 Apr, 2013 [facility] [place] [facility] [address] [id number] [place] [address]- 2745 Apr, [facility] [place] [facility] [address] [id number] [place] [address]- 8769 Apr, 2013 [facility] [place] [facility] [address] [id number] [place] [address]- 1579 Apr, 2013 [facility] [place] [facility] [address] [id number] [place] [address]- 2262 Apr, [facility] [place] [facility] [address] [id number] [place] [address]- 7498 Apr, [facility] [place] [facility] [address] [id number] [place] [address]- 2977 Apr, [facility] [place] [facility] [address] [id number] [place] [address]- 1850 Mar, 2013 [facility] [place] [facility] [address] [id number] [place] [address]- 7138 22 Mar, 2013 [facility] [place] [facility] [address] [id number] [place] [address]- 3325 19 Mar, 2013 [facility] [place] [facility] [address] [id number] [place] [address]- 3398 19 Mar, 2013 [facility] [place] [facility] [address] [id number] [place] [address]- 2540 11 Mar, 2013 [facility] [place] [facility] [address] [id number] [place] [address]- 2545 11 Mar, 2013 [facility] [place] [facility] [address] [id number] [place] [address]- 2549 11 Mar, 2013 [facility] [place] [facility] [address] [id number] [place] [address]- 2547 11 Mar, 2013 [facility] [place] [facility] [address] [id number] [place] [address]- 8158 Mar, [facility] [place] [facility] [address] [id number] [place] [address]- 6225 Mar, [facility] [place] [facility] [address] [id number] [place] [address]- 9365 Feb, [facility] [place] [facility] [address] [id number] [place] [address]- 6949 Feb, [facility] [place] [facility] [address] [id number] [place] [address]- 8009 Feb, [facility] [place] [facility] [address] [id number] [place] [address]- 8646 Feb, [facility] [place] [facility] [address] [id number] [place] [address]- 2891 Feb, [facility] [place] [facility] [address] [id number] [place] [address]- 5280 Feb, [facility] [place] [facility] [address] [id number] [place] [address]- 8011 Feb, [facility] [place] [facility] [address] [id number] [place] [address]- 4559 Feb, [facility] [place] [facility] [address] [id number] [place] [address]- 9571 Feb, [facility] [place] [facility] [address] [id number] [place] [address]- 2137 Feb, [facility] [place] [facility] [address] [id number] [place] [address]- 1452 Feb, [facility] [place] [facility] [address] [id number] [place] [address]- 4849 Feb, [facility] [place] [facility] [address] [id number] [place] [address]- 9772 Feb, [facility] [place] [facility] [address] [id number] [place] [address]- 2187 Feb, [facility] [place] [facility] [address] [id number] [place] [address]- 4306 Feb, [facility] [place] [facility] [address] [id number] [place] [address]- 9941 Feb, [facility] [place] [facility] [address] [id number] [place] [address]- 5514 Jan, [facility] [place] [facility] [address] [id number] [place] [address]- 2722 Jan, [facility] [place] [facility] [address] [id number] [place] [address]- 9364 Jan, [facility] [place] [facility] [address] [id number] [place] [address]- 2829 Jan, [facility] [place] [facility] [address] [id number] [place] [address]- 2680 Jan, [facility] [place] [facility] [address] [id number] [place] [address]- 0776 Jan, [facility] [place] [facility] [address] [id number] [place] [address]- 6961 Dec, [facility] [place] [facility] [address] [id number] [place] [address]- 0910 Dec, [facility] [place] [facility] [address] [id number] [place] [address]- 9881 Dec, [facility] [place] [facility] [address] [id number] [place] [address]- 5542 Dec, [facility] [place] [facility] [address] [id number] [place] [address]- 3447 Dec, [facility] [place] [facility] [address] [id number] [place] [address]- 7469 Dec, [facility] [place] [facility] [address] [id number] [place] [address]- 9380 Dec, [facility] [place] [facility] [address] [id number] [place] [address]- 6039 Dec, [facility] [place] [facility] [address] [id number] [place] [address]- 0295 November, [facility] [address] [id number] [place] [address]- 3960 November, [facility] [place] [facility] [address] [id number] [place] [address]- 5238 November, [facility] [place] [facility] [address] [id number] [place] [address]- 3738 November, [facility] [place] [facility] [address] [id number] [place] [address]- 6918 November, [facility] [place] [facility] [address] [id number] [place] [address]- 3667 November, [facility] [place] [facility] [address] [id number] [place] [address]- 6528 Oct, [facility] [place] [facility] [address] [id number] [place] [address]- 7023 Oct, [facility] [place] [facility] [address] [id number] [place] [address]- 9076 Oct, [facility] [place] [facility] [address] [id number] [place] [address]- 4187 Oct, [facility] [place] [facility] [address] [id number] [place] [address]- 7019 Sep, [facility] [place] [facility] [address] [id number] [place] [address]- 6623 Sep, [facility] [place] [facility] [address] [id number] [place] [address]- 5242 Sep, [facility] [place] [facility] [address] [id number] [place] [address]- 7154 Sep, [facility] [place] [facility] [address] [id number] [place] [address]- 7609 Sep, [facility] [place] [facility] [address] [id number] [place] [address]- 5576 Sep, [facility] [place] [facility] [address] [id number] [place] [address]- 6373 Aug, [facility] [place] [facility] [address] [id number] [place] [address]- 4767 Aug, [facility] [place] [facility] [address] [id number] [place] [address]- 9842 Aug, [facility] [place] [facility] [address] [id number] [place] [address]- 6495 Aug, [facility] [place] [facility] [address] [id number] [place] [address]- 6732 Aug, [facility] [place] [facility] [address] [id number] [place] [address]- 8693 Aug, [facility] [place] [facility] [address] [id number] [place] [address]- 2746 Jul, [facility] [place] [facility] [address] [id number] [place] [address]- 4933 Jul, [facility] [place] [facility] [address] [id number] [place] [address]- 0789 Jul, [facility] [place] [facility] [address] [id number] [place] [address]- 2393 Jul, [facility] [place] [facility] [address] [id number] [place] [address]- 8048 Jul, [facility] [place] [facility] [address] [id number] [place] [address]- 1084 Jul, [facility] [place] [facility] [address] [id number] [place] [address]- 7792 Jul, [facility] [place] [facility] [address] [id number] [place] [address]- 3114 Jul, [facility] [place] [facility] [address] [id number] [place] [address]- 7717 Jul, [facility] [place] [facility] [address] [id number] [place] [address]- 8333 Jul, [facility] [address] [id number] [place] [address]- 4969 Jul, [facility] [address] [id number] [place] [address]- 3339 Jul, [facility] [address] [id number] [place] [address]- 5940 Jul, [facility] [address] [id number] [place] [address]- 3188 Jul, [facility] [address] [id number] [place] [address]- 5409 Jul, [facility] [address] [id number] [place] [address]- 4545 Jun, [facility] [address] [id number] [place] [address]- 2564 Jun, [facility] [address] [id number] [place] [address]- 0609 Jun, [facility] [address] [id number] [place] [address]- 5789 Jun, [facility] [address] [id number] [place] [address]- 0951 May, [facility] [address] [id number] [place] [address] May, [facility] [address] [id number] [id number] May, [facility] [address] [id number] [place] [address] May, [facility] [address] [id number] [place] [address] May, [facility] [address] [id number] [address] May, [facility] [address] [facility] [id number], [place] [address] May, [facility] [id number] [address] May, [facility] [id number] [address] May, [facility] [id number] [id number] May, [facility] [id number] [address] May, [facility] [id number] [place] [id number] May, [facility] [id number] [address] May, [facility] [id number] [id number] May, [facility] [address] [id number] [address] May, IMMUNIZATIONS No Known Immunizations SOCIAL HISTORY Never Assessed REASON FOR VISIT Cough and congestion for 4 days. ruben PLAN OF CARE Activity Details Follow Up as needed or reg fu with pcp Reason: VITAL SIGNS Height 63 in 2018-05-07 Weight 185.4 lbs 2018-05-07 Temperature 97.6 degrees Fahrenheit 2018-05-07 Heart Rate 80 bpm 2018-05-07 Respiratory Rate 20 2018-05-07 BMI 32.84 kg/m2 2018-05-07 Blood pressure systolic 126 mmHg 2018-05-07 Blood pressure diastolic 80 mmHg 2018-05-07 MEDICATIONS Medication Instructions Dosage Frequency Start Date End Date Duration Status Pravastatin Sodium 10 mg Orally Once a day 1 tablet 24h 90 days Active Guaifenesin 400 mg Orally every 4 hrs 1 tablet as needed 4h Apr, Apr, 5 days Active Ranitidine HCl 150 MG Orally 2 times a day 1 tablet 12h 30 Active Oxycodone-Acetaminophen 5-325 MG Orally 2 times a day 1 tablet 12h Apr, 28 days Active Tessalon Perles 100 mg Orally Three times a day 1 capsule as needed 8h Apr, Apr, 5 days Active Symbicort 160-4.5 MCG/ACT Inhalation Twice a day 2 puffs 12h 90 Active Cholecalciferol 1000 UNIT Orally Once a day 1 capsule 24h Active Enbrel 50 MG/ML Subcutaneous once weekly on Thursday 1 ml Active Montelukast Sodium 10 mg Orally Once a day at HS 1 tablet in the evening Active Cetirizine HCl 10 MG Orally Once a day 1 tablet 24h Active Aspirin EC 81 MG Orally Once a day 1 tablet 24h 30 Active Spiriva Respimat 2.5 MCG/ACT Inhalation Once a day 1 puff 24h 20 Oct, 2015 90 days Active Probiotic - Active Zoloft 50 mg Orally Once a day 1 tablet 24h 90 Active Trazodone HCl 50 MG Orally Once a day 2 tablets at bedtime 24h 90 Active Vitamin C 500 mg Orally Once a day 2 tablets 24h Feb, Active Albuterol Sulfate (2.5 MG/3ML) 0.083% USE ONE AMPULE IN NEBULIZER EVERY 6 HOURS 25 Active Multi Adult Gummies - Active RESULTS No Results PROCEDURES Procedure Date Ordered Result Body Site [facility] VISIT ESTABLISHED PATIENT May 07, 2018 INSTRUCTIONS MEDICATIONS ADMINISTERED No Known Medications MEDICAL [...] leukocytosis--[facility] 01/08/16 Hospitalization History pseudomemranous colitis, sepsis--[facility] 04/21/2016 Hospitalization History C Diff--[facility] 05/10/2016 Hospitalization History sepsis, pneumonia, diarrhea--[facility] 06/11/16 Hospitalization History recurrent cdiff, pneumonia-[facility] 07/22/16 Hospitalization History sepsis,pneumonia- [facility]
--- OUTSIDE RECORDS SUMMARY | 2018-09-02 10:37 | XMS REPORT ---
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 287014699 Problem Chronic pain syndrome G89.4 Active 433158784 Problem Leg pain, left M79.605 Active 120770453 Problem Anxiety F41.9 Active 77717271 Problem Dysphagia, unspecified dysphagia R13.10 Active 14622217 Problem Depression, unspecified depression type F32.9 Active 34872796 Problem Iron deficiency anemia, unspecified iron deficiency anemia type D50.9 Active 77052910 Problem Anemia, unspecified type D64.9 Active 787885933 Problem History of oral cancer Z85.819 Active 619928773 Problem Seasonal allergic rhinitis due to pollen J30.1 Active 51193539 Problem 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 278228103 Problem History of cerebrovascular accident with current residual effects I69.90 Active 424671470 Problem Peripheral vascular disease, unspecified I73.9 Active 568519190 Problem Chronic obstructive pulmon disease w acute lower resp infct J44.0 Active 022694367 Problem Other chronic pain G89.29 Active 39636799 Problem Insomnia, unspecified G47.00 Active 395897309 Problem Primary insomnia F51.01 Active 2007142 Problem Rheumatoid arthritis M06.9 Active 53475671 Problem Atrial fibrillation I48.91 Active 71386649 Problem Osteoarthritis of foot M19.079 Active 659862164 Problem Hypertension I10 Active 92483126 Problem Tobacco abuse, 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 532570063 Problem Edema R60.9 Active 794318391 Problem Dysthymia F34.1 Active 83488173 Problem COPD (chronic obstructive pulmonary disease) J44.9 Active 98830208 ALLERGIES No Information ENCOUNTERS Encounter Location Date Diagnosis [facility] [id number] [place] [address] 57081- 6636 May, Chronic pain syndrome G89.4 [facility] [id number] [place] [address] 38556 -3623 Apr, Cough R05 and Viral illness B34.9 [facility] [address] 69087- 1405 Apr, Encounter for immunization Z23 [facility] [address] 91544- 8714 Apr, Chronic pain syndrome G89.4 [facility] [id number] [place] [address] 27453 -9143 Apr, Left acute otitis media H66.92 [facility] [address] 54464- 4039 Mar, Rheumatoid arthritis M06.9 ; Other chronic pain G89.29 ; History of oral cancer Z85.819 and History of tachycardia Z87.898 [facility] [id number] [place] [address] 69543- 2099 Mar, Chronic pain syndrome G89.4 [facility] [id number] [place] [address] 26592- 7539 Feb, Chronic pain syndrome G89.4 [facility] [id number] [place] [address] 72010- 6690 Feb, Chronic pain syndrome G89.4 [facility] [id number] [place] [address] 14390- 2318 Jan, Chronic pain syndrome G89.4 [facility] [id number] [place] [address] 37385- 6086 Jan, [facility] [address] [address] 3049 Dec, Chronic pain syndrome G89.4 [facility] [id number] [place] [address] 48480- 2638 November, Chronic pain syndrome G89.4 [facility] [id number] [place] [address] 71061- 5554 November, [facility] [id number] [place] [address] 59856- 3970 Oct, Chronic pain syndrome G89.4 [facility] [id number] [place] [address] 70291- 8423 Oct, [facility] [id number] [place] [address] 61564- 5307 Oct, Chronic pain syndrome G89.4 [facility] [id number] [place] [address] 30429- 3858 Oct, [facility] [id number] [place] [address] 33330- 8993 Oct, [facility] [id number] [place] [address] 63857- 3832 Sep, Left upper quadrant pain R10.12 ; Chronic pain syndrome G89.4 ; Left lower quadrant pain R10.32 ; Other chronic pain G89.29 ; Sacrococcygeal disorders, not elsewhere classified M53.3 and Seasonal allergic rhinitis due to pollen J30.1 [facility] [address] [address]- 8864 Sep, Chronic pain syndrome G89.4 [facility] [id number] [place] [address] 30719- 8217 Sep, [facility] [id number] [place] [address] 38976- 4689 Aug, Chronic pain syndrome G89.4 [facility] [id number] [place] [address] 67883- 9907 Aug, [facility] [id number] [place] [address] 00168- 9315 Aug, Insomnia, unspecified G47.00 [facility] [id number] [place] [address] 45823- 4129 Jul, [facility] [id number] [place] [address] 71169- 6929 Jul, [facility] [id number] [place] [address] 67809- 0362 Jul, Chronic pain syndrome G89.4 [facility] [id number] [place] [address] 39791- 6783 Jun, Chronic pain syndrome G89.4 [facility] [id number] [place] [address] 87390- 0647 Jun, Chronic pain syndrome G89.4 [facility] [id number] [place] [address] 30467- 5806 May, [facility] [id number] [place] [address] 49432- 0108 May, Shortness of breath R06.02 ; Peripheral vascular disease, unspecified I73.9 ; Pain in right knee M25.561 ; Other chronic pain G89.29 ; Chest wall pain R07.89 ; Chronic pain syndrome G89.4 ; Primary insomnia F51.01 and Ear pain, left H92.02 [facility] [id number] [place] [address] 33784- 2940 May, Anxiety F41.9 [facility] [id number] [place] [address] 04227- 8557 Apr, Pneumonia due to infectious organism, unspecified laterality , unspecified part of lung J18.9 ; Hypoxia R09.02 ; Bradycardia R00.1 ; History of Clostridium difficile Z87.19 and Primary insomnia F51.01 [facility] [id number] [place] [address] 67450- 7716 Apr, Anxiety F41.9 [facility] [id number] [place] [address] 24568- 8022 Apr, [facility] [address] 64892- 4419 Mar, Anxiety F41.9 [facility] [address] 89591- 7327 Feb, [facility] [address] 66189- 0069 Feb, [facility] [address] 09259- 1993 Feb, Abnormal finding on urinalysis R82.90 [facility] [address] 18788- 2968 Feb, [facility] [address] 31203- 8675 Feb, Shortness of breath R06.02 ; Tachycardia R00.0 ; Cough R05 ; Ill feeling R68.89 and Abnormal finding on urinalysis R82.90 [facility] [id number] [place] [address] 53536- 5840 Feb, Anxiety F41.9 [facility] [id number] [place] [address] 11844 -9786 Feb, Sore throat J02.9 and Acute diffuse otitis externa of left ear H60.312 [facility] [id number] [place] [address] 66018- 9746 Jan, [facility] [address] 27540- 9686 Jan, [facility] [address] [id number] Jan, [facility] [address] 71686- 2837 Jan, Depression, unspecified depression type F32.9 ; Chronic bronchitis, unspecified chronic bronchitis type J42 ; Chronic pain syndrome G89.4 and Anxiety F41.9 [facility] [id number] [place] [address] 93914- 1874 Jan, [facility] [id number] [place] [address] 78030- 1027 Jan, [facility] [id number] [place] [address] 45051- 7609 Jan, [facility] [id number] [place] [address] [id number] Jan, Chronic pain syndrome G89.4 [facility] [address] [id number] Dec, History of right knee surgery Z98.890 [facility] [id number] [place] [address] 27791- 3522 Dec, [facility] [id number] [place] [address] 54572- 9466 Dec, Chronic pain syndrome G89.4 [facility] [id number] [place] [address] 16873- 2074 November, Anxiety F41.9 [facility] [id number] [place] [address] 04721 -4668 November, Acute cystitis without hematuria N30.00 [facility] [id number] [place] [address] 35700 -7819 November, Fever, unspecified fever cause R50.9 and Acute cystitis without hematuria N30.00 [facility] [id number] [place] [address] 66914- 6418 November, Chronic pain syndrome G89.4 [facility] [id number] [place] [address] 12368- 7839 Oct, Anxiety F41.9 [facility] [id number] [place] [address] 50989- 8867 Oct, Chronic pain syndrome G89.4 [facility] [id number] [place] [address] 31307- 3033 Oct, Chronic pain syndrome G89.4 [facility] [id number] [place] [address] 53598- 5784 Oct, [facility] [id number] [place] [address] 14428- 0797 Oct, Chronic pain syndrome G89.4 ; Pain in right knee M25.561 ; History of Clostridium difficile Z87.19 ; Iron deficiency anemia, unspecified iron deficiency anemia type D50.9 ; Peripheral vascular disease, unspecified I73.9 and Atrial fibrillation I48.91 [facility] [id number] [place] [address] 92600- 5198 Oct, [facility] [id number] [place] [address] 61672- 9060 Oct, Chronic pain syndrome G89.4 [facility] [id number] [place] [address] 94721- 5830 Sep, [facility] [id number] [place] [address] 10535- 6377 Sep, Depression, unspecified depression type F32.9 ; Chronic bronchitis, unspecified chronic bronchitis type J42 ; Chronic pain syndrome G89.4 and Anxiety F41.9 [facility] [address] [id number] Sep, History of Clostridium difficile infection Z86.19 and History of stroke Z86.73 [facility] [id number] [place] [address] [id number] Sep, Anxiety F41.9 [facility] [id number] [place] [address] 05889- 4607 Sep, Chronic pain syndrome G89.4 [facility] [id number] [place] [address] 52015- 0546 Sep, [facility] [address] [id number] Sep, [facility] [id number] [place] [address] 39371- 2199 Aug, Anxiety F41.9 [facility] [address] [address]- 6907 Aug, Anxiety F41.9 [facility] [id number] [place] [address] 47310 2545 Aug, [facility] [id number] [place] [address] 35812- 5816 14 Aug, 2016 Acute knee pain, unspecified laterality M25.569 [facility] [id number] [place] [address] 33798- 7332 13 Aug, 2016 [facility] [id number] [place] [address] 56251- 8607 Aug, Chronic pain syndrome G89.4 [facility] [address] [address]- 7680 08 Aug, 2016 [facility] [address] [address]- 5473 Aug, [facility] [address] [address]- 1709 Jul, [facility] [address] [address]- 3518 Jul, Anxiety F41.9 [facility] [id number] [address]- 4659 Jul, Clostridium difficile diarrhea A04.7 [facility] [address] [id number] Jul, Clostridium difficile diarrhea A04.7 ; Chronic pain syndrome G89.4 ; Chronic obstructive pulmon disease w acute lower resp infct J44.0 and Pain in right knee M25.561 [facility] [id number] [id number] Jul, [facility] [id number] [place] [address] 98089 -3119 Jul, Anxiety F41.9 and Chronic pain syndrome G89.4 [facility] [address] [address]- 8996 Jun, Anxiety F41.9 [facility] [id number] [place] [address] 81821- 6328 Jun, Rheumatoid arthritis 714.0 [facility] [id number] [place] [address] 25959- 2191 Jun, Chronic pain syndrome G89.4 [facility] [id number] [place] [address] 29483- 4670 Jun, [facility] [id number] [place] [address] 93459- 7864 Jun, [facility] [id number] [place] [address] 80040- 8595 Jun, History of pneumonia Z87.01 and History of Clostridium difficile Z87.19 [facility] [address] [address]- 1173 Jun, [facility] [id number] [place] [address] 96940- 3848 May, [facility] [address] [address]- 6454 May, Anxiety F41.9 [facility] [id number] [place] [address] 14877- 7149 May, Chronic pain syndrome G89.4 [facility] [address] [address]- 9800 15 May, 2016 Chronic bronchitis, unspecified chronic bronchitis type J42 [facility] [id number] [place] [address] 10111- 6296 May, [facility] [id number] [place] [address] 38496- 2350 May, C. difficile diarrhea A04.7 ; Peripheral edema R60.9 ; COPD (chronic obstructive pulmonary disease) J44.9 ; Rheumatoid arthritis, involving unspecified site, unspecified rheumatoid factor presence M06.9 ; Pain in right knee M25.561 ; Pain in left knee M25.562 and Other chronic pain G89.29 [facility] [id number] [place] [address] 43637 2546 May, [facility] [id number] [place] [address] 11297- 2874 May, [facility] [id number] [place] [address] 86306 2545 May, Anxiety F41.9 [facility] [address] 81942- 1556 Apr, [facility] [id number] [place] [address] 76151- 8799 Apr, Chronic pain syndrome G89.4 [facility] [id number] [place] [address] 57614- 8656 Apr, Leg pain, left M79.605 [facility] [id number] [place] [address] 03208- 7866 Apr, [facility] [id number] [place] [address] 40704 2549 Apr, [facility] [id number] [place] [address] 79817- 5646 Apr, [facility] [id number] [place] [address] 09791- 7556 28 Mar, 2016 Chronic pain syndrome G89.4 [facility] [id number] [place] [address] 11040 2546 Mar, Acute frontal sinusitis, recurrence not specified J01.10 [facility] [address] [address]- 0366 20 Mar, 2016 Iron deficiency anemia, unspecified iron deficiency anemia type D50.9 ; Rheumatoid arthritis with positive rheumatoid factor, involving unspecified site M05.9 and Depression, unspecified depression type F32.9 [facility] [id number] [place] [address] 68695- 2401 Mar, Iron deficiency anemia, unspecified iron deficiency anemia type D50.9 ; Depression, unspecified depression type F32.9 and Rheumatoid arthritis with positive rheumatoid factor, involving unspecified site M05.9 [facility] [id number] [place] [address] 94562- 3755 Mar, [facility] [id number] [place] [address] 30758- 1058 Mar, [facility] [id number] [place] [address] 40190- 9628 Feb, Chronic pain syndrome G89.4 [facility] [id number] [place] [address] 00402- 6415 30 Feb, 2016 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 ; Status post CVA Z86.73 ; Hemiplegia G81.90 and Anemia, unspecified type D64.9 [facility] [address] [address]- 9469 Feb, [facility] [id number] [place] [address] 20126- 7405 Feb, Anemia, unspecified type D64.9 [facility] [id number] [place] [address] 12608- 2253 Feb, [facility] [id number] [place] [address] 50165- 9066 Feb, Iron deficiency anemia, unspecified iron deficiency anemia type D50.9 [facility] [id number] [place] [address] 05041- 0733 Feb, [facility] [id number] [place] [address] 31723- 0759 Feb, Chronic bronchitis, unspecified chronic bronchitis type J42 [facility] [id number] [place] [address] 92822- 2466 Feb, Iron deficiency anemia, unspecified iron deficiency anemia type D50.9 [facility] [id number] [place] [address] 10403- 2354 Feb, Chronic pain syndrome G89.4 [facility] [id number] [place] [address] 81870- 2940 Feb, Anemia, unspecified type D64.9 and Hypoxia R09.02 [facility] [id number] [place] [address] 47117- 3665 Feb, Anemia, unspecified type D64.9 [facility] [id number] [place] [address] 15355- 5460 Jan, [facility] [id number] [place] [address] 20095- 7519 Jan, Anemia, unspecified type D64.9 [facility] [id number] [place] [address] 10934- 8035 Jan, [facility] [id number] [place] [address] 26316- 0223 Jan, Anemia, unspecified type D64.9 [facility] [id number] [place] [address] 66451- 0143 Jan, Anemia, unspecified type D64.9 [facility] [id number] [place] [address] 48827- 1981 Jan, [facility] [address] [address]- 1709 Jan, Anemia, unspecified type D64.9 [facility] [id number] [place] [address] 38056- 7766 Jan, [facility] [id number] [place] [address] 79082- 6287 Jan, [facility] [id number] [place] [address] 70182- 7658 Jan, Chronic pain syndrome G89.4 [facility] [id number] [place] [address] 63753- 8295 Jan, Anemia, unspecified type D64.9 [facility] [id number] [place] [address] 84671- 1053 Jan, Dysthymia F34.1 ; Cervicalgia M54.2 ; Fatigue, unspecified type R53.83 and Depression, unspecified depression type F32.9 [facility] [id number] [place] [address] 95795- 9170 Dec, [facility] [id number] [place] [address] 91805- 9899 Dec, Anxiety F41.9 [facility] [id number] [place] [address] 92541- 8500 Dec, Chronic pain syndrome G89.4 [facility] [id number] [place] [address] 61755- 3715 November, [facility] [id number] [place] [address] 50398- 4555 November, Edema R60.9 and Dizziness R42 [facility] [id number] [place] [address] 87119- 6435 November, [facility] [address] [place] [id number] [place] [address] [phone] November, [place] [id number] [place] [address] [phone] November, COPD (chronic obstructive pulmonary disease) J44.9 ; Increased tracheal secretions J39.8 and Edema R60.9 [facility] [id number] [phone] 29 Oct, 2015 [facility] [address] [place] [place] [id number] [place] [address] [phone] 28 Oct, 2015 Shortness of breath R06.02 and Edema R60.9 [facility] [address] [place] [id number] [place] [address] [phone] 20 Oct, 2015 Chronic bronchitis, unspecified chronic bronchitis type J42 ; Peripheral vascular disease, unspecified I73.9 ; Rheumatoid arthritis M06.9 and Atrial fibrillation I48.91 [facility] [address] [place] [id number] [place] [address] [phone] 19 Oct, 2015 [facility] [address] [id number] [place] [address] [phone] 13 Oct, 2015 [facility] [address] [place] [id number] [place] [address] [phone] Oct, [facility] [address] [id number] [place] [address] [phone] Oct, [facility] [id number] [place] [address] [phone] [address][phone] 12 Oct, 2015 COPD exacerbation J44.1 [facility] [address] [place] [id number] [place] [address] [phone] 28 Sep, 2015 [facility] [address] [place] [id number] [place] [place] [address]8414- 7682 17 Sep, 2015 [facility] [id number] [address] 4645 16 Sep, 2015 [facility] [id number] [place] [address] 02577- 5550 17 Aug, 2015 [facility] [id number] [place] [address] 40535- 4327 16 Aug, 2015 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 and PVD (peripheral vascular disease ) I73.9 [facility] [id number] [place] [address] 67101- 7728 Aug, Bronchitis J40 ; COPD (chronic obstructive pulmonary disease ) J44.9 and Dysthymia F34.1 [facility] [id number] [place] [address] 44138- 6975 Aug, [facility] [id number] [place] [address] 08980- 6849 Jul, [facility] [id number] [place] [address] 40354- 9585 Jul, [facility] [id number] [place] [address] 32120- 8903 Jul, [facility] [id number] [place] [address] 87118- 7794 Jun, [facility] [id number] [place] [address] 54780- 6423 Jun, [facility] [id number] [place] [address] 63677- 6690 Jun, Peripheral vascular disease I73.9 [facility] [id number] [place] [address] 02804- 6670 Jun, [facility] [id number] [place] [address] 76899- 1288 Jun, [facility] [id number] [place] [address] 17097- 3963 Jun, Leg pain, left M79.605 ; Dysphagia, unspecified dysphagia R13.10 ; Insomnia, unspecified type G47.00 ; PVD (peripheral vascular disease) I73.9 and 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 [address]- 4195 May, [facility] [id number] [address]- 6642 May, [facility] [id number] [address]- 8566 May, [facility] [id number] [address]- 3494 Apr, [facility] [address] [facility] [id number] [place] [address]- 7623 Apr, [facility] [id number] [place] [address], [place] [address]- 9765 Mar, [facility] [id number] [address]- 1412 Mar, [facility] [id number] [address]- 3390 Feb, [facility] [id number] [address]- 8143 Feb, Nicotine abuse 305.1 ; Arthralgia 719.40 and 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 [facility] [address] [id number] [address]- 0176 Feb, [facility] [address] [id number] [address]- 8871 Jan, [facility] [address] [id number] [address]- 8921 Jan, [facility] [address] [id number] [address]- 9696 Jan, [facility] [address] [id number] [address]- 2887 Jan, [facility] [address] [id number] [address]- 0891 Jan, 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 ; Rheumatoid arthritis 714.0 ; Hypertension 401.9 ; GERD (gastroesophageal reflux disease) 530.81 ; Nicotine addiction 305.1 and Leukocytosis 288.60 [facility] [id number] [place] [address] 87003- 5854 Jan, [facility] [id number] [place] [address] 46856- 6926 Jan, [facility] [id number] [place] [address] 13699- 5958 Jan, [facility] [id number] [place] [address] 53884- 8989 Jan, [facility] [id number] [place] [address] 13080- 6911 Jan, [facility] [id number] [place] [address] 08738- 1904 Dec, [facility] [id number] [place] [address] 08728- 0708 Dec, [facility] [id number] [place] [address] 97345- 4963 Dec, [facility] [id number] [place] [address] 15587- 9066 Dec, [facility] [id number] [address]- 9299 November, [facility] [address] [id number] [address]- 4529 November, [facility] [id number] [address]- 4928 November, Shortness of breath 786.05 [facility] [id number] [address]- 6235 November, Rheumatoid arthritis 714.0 [facility] [id number] [address]- 3061 November, 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 [facility] [id number] [address]- 5704 November, Neuropathy 355.9 ; Insomnia 780.52 ; Dysthymia 300.4 ; Shortness of breath 786.05 ; Rheumatoid arthritis 714.0 and Nausea 787.02 [facility] [id number] [address]- 6760 November, [facility] [id number] [place] [address] 24480- 8849 November, [facility] [address] [id number] [address]- 4030 Oct, [facility] [id number] [place] [address] 02550- 9589 Oct, [facility] [id number] [place] [address] 36488- 8054 Oct, [facility] [id number] [place] [address] 13811- 5827 Oct, [facility] [address] [address]- 9618 Sep, [facility] [address] [id number] [address]- 3021 Sep, [facility] [address] [address]- 2610 Sep, [facility] [id number] [address]- 7273 Sep, [facility] [id number] [address]- 5661 Sep, [facility] [id number]- 8907 Sep, [facility] [id number] 6394 Sep, [facility] [id number] [address]- 3820 Sep, [facility] [place] [facility] [address] [id number] [place] [address]- 4451 Aug, [facility] [place] [facility] [address] [id number] [place] [address]- 3906 Aug, [facility] [place] [facility] [address] [id number] [place] [address]- 0796 Aug, [facility] [place] [facility] [address] [id number] [place] [address]- 9816 Aug, [facility] [place] [facility] [address] [id number] [place] [address]- 0396 Aug, [facility] [place] [facility] [address] [id number] [place] [address]- 7240 Aug, [facility] [place] [facility] [address] [id number] [place] [address]- 6760 Jul, [facility] [place] [facility] [address] [id number] [place] [address]- 6386 Jul, [facility] [place] [facility] [address] [id number] [place] [address]- 1071 Jul, [facility] [place] [facility] [address] [id number] [place] [address]- 0215 Jul, [facility] [place] [facility] [address] [id number] [place] [address]- 4945 Jul, [facility] [place] [facility] [address] [id number] [place] [address]- 1105 Jul, [facility] [place] [facility] [address] [id number] [place] [address]- 1350 Jul, [facility] [place] [facility] [address] [id number] [place] [address]- 0496 Jul, [facility] [place] [facility] [address] [id number] [place] [address]- 8464 Jul, [facility] [place] [facility] [address] [id number] [place] [address]- 8965 Jul, [facility] [place] [facility] [address] [id number] [place] [address]- 6792 Jun, [facility] [place] [facility] [address] [id number] [place] 2846 Jun, [facility] [place] [facility] [address] [id number] [place] [address]- 5030 Jun, [facility] [place] [facility] [address] [id number] [place] [address]- 6278 Jun, [facility] [place] [facility] [address] [id number] [place] [address]- 9736 Jun, [facility] [place] [facility] [address] [id number] [place] [address]- 7124 Jun, [facility] [place] [facility] [address] [id number] [place] [address]- 1437 Jun, [facility] [place] [facility] [address] [id number] [place] [address]- 6250 Jun, [facility] [place] [facility] [address] [id number] [place] [address]- 4308 Jun, [facility] [place] [facility] [address] [id number] [place] [address]- 2661 Jun, [facility] [place] [facility] [address] [id number] [place] [address]- 1405 Jun, [facility] [place] [facility] [address] [id number] [place] [address]- 3873 Jun, [facility] [place] [facility] [address] [id number] [place] 3568 Jun, [facility] [place] [facility] [address] [id number] [place] 4112 Jun, [facility] [place] [facility] [address] [id number] [place] [address]- 4183 Jun, [facility] [place] [facility] [address] [id number] [place] [address]- 1984 Jun, [facility] [place] [facility] [address] [id number] [place] [address]- 1609 May, [facility] [place] [facility] [address] [id number] [place] [address]- 2792 May, [facility] [place] [facility] [address] [id number] [place] [address]- 9985 May, [facility] [place] [facility] [address] [id number] [place] [address]- 6157 May, [facility] [place] [facility] [address] [id number] [place] [address]- 8174 May, [facility] [place] [facility] [address] [id number] [place] [address]- 8189 May, [facility] [place] [facility] [address] [id number] [place] [address]- 1478 May, [facility] [place] [facility] [address] [id number] [place] [address]- 7958 May, [facility] [place] [facility] [address] [facility] [id number] [place] [address]- 8715 May, [facility] [place] [facility] [address] [id number] [place] [address]- 6290 Apr, [facility] [place] [facility] [address] [id number] [place] [address]- 2601 Apr, [facility] [place] [facility] [address] [id number] [place] [address]- 1595 Apr, [facility] [place] [facility] [address] [id number] [place] [address]- 2642 Apr, [facility] [place] [facility] [address] [id number] [address]- 0101 Apr, [facility] [place] [facility] [address] [id number] [place] [address]- 3402 Apr, [facility] [place] [facility] [address] [id number] [place] [address]- 4598 Apr, [facility] [place] [facility] [address] [id number] [place] [address]- 2800 Apr, [facility] [place] [facility] [address] [id number] [place] [address]- 4025 Apr, [facility] [place] [facility] [address] [id number] [place] [address]- 9121 Apr, [facility] [place] [facility] [address] [id number] [place] [address]- 0948 Apr, [facility] [place] [facility] [address] [id number] [place] [address]- 7371 Apr, [facility] [place] [facility] [address] [id number] [place] [address]- 3467 Mar, [facility] [place] [facility] [address] [id number] [place] [address]- 3721 22 Mar, 2014 [facility] [place] [facility] [address] [id number] [place] [address]- 2310 19 Mar, 2014 [facility] [place] [facility] [address] [id number] [place] [address]- 6237 19 Mar, 2013 [facility] [place] [facility] [address] [id number] [place] [address]- 1486 11 Mar, 2013 [facility] [place] [facility] [address] [id number] [place] [address]- 6072 11 Mar, 2013 [facility] [place] [facility] [address] [id number] [place] [address]- 8855 11 Mar, 2013 [facility] [place] [facility] [address] [id number] [place] [address]- 7874 11 Mar, 2013 [facility] [place] [facility] [address] [id number] [place] [address]- 7939 Mar, [facility] [place] [facility] [address] [id number] [place] [address]- 9700 Mar, [facility] [place] [facility] [address] [id number] [place] [address]- 4562 Feb, [facility] [place] [facility] [address] [id number] [place] [address]- 5856 Feb, [facility] [place] [facility] [address] [id number] [place] [address]- 4836 Feb, [facility] [place] [facility] [address] [id number] [place] [address]- 0552 Feb, [facility] [place] [facility] [address] [id number] [place] [address]- 8957 Feb, [facility] [place] [facility] [address] [id number] [place] [address]- 0633 Feb, [facility] [place] [facility] [address] [id number] [place] [address]- 0428 Feb, [facility] [place] [facility] [address] [id number] [place] [address]- 7450 Feb, [facility] [place] [facility] [address] [id number] [place] [address]- 7970 Feb, [facility] [place] [facility] [address] [id number] [place] [address]- 2098 Feb, [facility] [place] [facility] [address] [id number] [place] [address]- 9514 Feb, [facility] [place] [facility] [address] [id number] [place] [address]- 8471 Feb, [facility] [place] [facility] [address] [id number] [place] [address]- 0208 Feb, [facility] [place] [facility] [address] [id number] [place] [address]- 5071 Feb, [facility] [place] [facility] [address] [id number] [place] [address]- 1747 Feb, [facility] [place] [facility] [address] [id number] [place] [address]- 1856 Feb, [facility] [place] [facility] [address] [id number] [place] [address]- 7523 Jan, [facility] [place] [facility] [address] [id number] [place] [address]- 0583 Jan, [facility] [place] [facility] [address] [id number] [place] [address]- 5741 Jan, [facility] [place] [facility] [address] [id number] [place] [address]- 2389 Jan, [facility] [place] [facility] [address] [id number] [place] [address]- 5166 Jan, [facility] [place] [facility] [address] [id number] [place] [address]- 5175 Jan, [facility] [place] [facility] [address] [id number] [place] [address]- 7004 Dec, [facility] [place] [facility] [address] [id number] [place] [address]- 6884 Dec, [facility] [place] [facility] [address] [id number] [place] [address]- 8082 Dec, [facility] [place] [facility] [address] [id number] [place] [address]- 9324 Dec, [facility] [place] [facility] [address] [id number] [place] [address]- 9599 Dec, [facility] [place] [facility] [address] [id number] [place] [address]- 9679 Dec, [facility] [place] [facility] [address] [id number] [place] [address]- 0563 Dec, [facility] [place] [facility] [address] [id number] [place] [address]- 0751 Dec, [facility] [place] [facility] [address] [id number] [place] [address]- 8296 November, [facility] [place] [facility] [address] [id number] [place] [address]- 8430 November, [facility] [place] [facility] [address] [id number] [place] [address]- 7269 November, [facility] [place] [facility] [address] [id number] [place] [address]- 8739 November, [facility] [place] [facility] [address] [id number] [place] [address]- 9861 November, [facility] [place] [facility] [address] [id number] [place] [address]- 5470 November, [facility] [place] [facility] [address] [id number] [place] [address]- 5448 Oct, [facility] [place] [facility] [address] [id number] [place] [address]- 9295 Oct, [facility] [place] [facility] [address] [id number] [place] [address]- 2962 Oct, [facility] [place] [facility] [address] [id number] [place] [address]- 7150 Oct, [facility] [place] [facility] [address] [id number] [place] [address]- 2251 Sep, [facility] [place] [facility] [address] [id number] [place] [address]- 1894 Sep, [facility] [place] [facility] [address] [id number] [place] [address]- 9191 Sep, [facility] [place] [facility] [address] [id number] [place] [address]- 9369 Sep, [facility] [place] [facility] [address] [id number] [place] [address]- 9397 Sep, [facility] [place] [facility] [address] [id number] [place] [address]- 7999 Sep, [facility] [place] [facility] [address] [id number] [place] [address]- 2376 Aug, [facility] [place] [facility] [address] [id number] [place] 4976 Aug, [facility] [place] [facility] [address] [id number] [place] [address]- 1106 Aug, [facility] [place] [facility] [address] [id number] [place] [address]- 4366 Aug, [facility] [place] [facility] [address] [id number] [place] [address]- 6498 Aug, [facility] [place] [facility] [address] [id number] [place] [address]- 9384 Aug, [facility] [place] [facility] [address] [id number] [place] [address]- 2562 Jul, [facility] [place] [facility] [address] [id number] [place] [address]- 7585 Jul, [facility] [place] [facility] [address] [id number] [place] [address]- 0334 Jul, [facility] [place] [facility] [address] [id number] [place] [address]- 8030 Jul, [facility] [place] [facility] [address] [id number] [place] [address]- 4063 Jul, [facility] [place] [facility] [address] [id number] [place] [address]- 0746 Jul, [facility] [place] [facility] [address] [id number] [place] [address]- 9553 Jul, [facility] [place] [facility] [address] [id number] [place] [address]- 8191 Jul, [facility] [place] [facility] [address] [id number] [place] [address]- 5398 Jul, [facility] [place] [facility] [address] [id number] [place] [address]- 1470 Jul, [facility] [address] [id number] [place] [address]- 4282 Jul, [facility] [address] [id number] [place] [address] Jul, [facility] [address] [id number] [place] [address] Jul, [facility] [address] [id number] [place] [address] Jul, [facility] [address] [id number] [place] [address] Jul, [facility] [address] [id number] [place] [address] Jun, [facility] [address] [id number] [place] [address] Jun, [facility] [address] [id number] [place] [address] Jun, [facility] [address] [id number] [place] [address] Jun, [facility] [address] [id number] [place] [address] May, [facility] [address] [id number] [address] May, [facility] [address] [id number] [id number] May, [facility] [place] [facility] [address] [id number] [place] [address] May, [facility] [place] [facility] [address] [id number] [place] [address] May, [facility] [place] [facility] [address] [id number] [place] [address] May, [facility] [id number] [address] May, [facility] [id number] [address] May, [facility] [id number] [address] May, [facility] [id number] [id number] May, [facility] [id number] [address] May, [facility] [address] [id number] [place] [id number] May, [facility] [id number] [address] May, [facility] [id number] [place] [id number] May, [facility] [address] [id number] [address] May, IMMUNIZATIONS No Known Immunizations SOCIAL HISTORY Never Assessed REASON FOR VISIT Controlled Med Refill 05/26/18 PLAN OF CARE VITAL SIGNS MEDICATIONS Medication Instructions Dosage Frequency Start Date End Date Duration Status Oxycodone-Acetaminophen 5-325 MG Orally 2 times a day 1 tablet 12h 13 May, 2018 28 days Active RESULTS No Results [...] leukocytosis--tank davis 01/08/16 Hospitalization History pseudomemranous colitis, sepsis--[facility] 04/21/2016 Hospitalization History C Diff--[facility] 05/10/2016 Hospitalization History sepsis, pneumonia, diarrhea--[facility] 06/11/16 Hospitalization History recurrent cdiff, pneumonia-[facility] 07/22/16 Hospitalization History sepsis,pneumonia- [facility]
--- OUTSIDE RECORDS SUMMARY | 2018-09-02 10:38 | XMS REPORT ---
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 168679085 Problem Chronic pain syndrome G89.4 Active 095892062 Problem Leg pain, left M79.605 Active 958757684 Problem Anxiety F41.9 Active 99370652 Problem Dysphagia, unspecified dysphagia R13.10 Active 19440660 Problem Depression, unspecified depression type F32.9 Active 38544693 Problem Iron deficiency anemia, unspecified iron deficiency anemia type D50.9 Active 70286318 Problem Anemia, unspecified type D64.9 Active 759789883 Problem History of oral cancer Z85.819 Active 441675920 Problem Seasonal allergic rhinitis due to pollen J30.1 Active 93861370 Problem 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 668266991 Problem History of cerebrovascular accident with current residual effects I69.90 Active 505600106 Problem Peripheral vascular disease, unspecified I73.9 Active 204865556 Problem Chronic obstructive pulmon disease w acute lower resp infct J44.0 Active 530561778 Problem Other chronic pain G89.29 Active 58846952 Problem Insomnia, unspecified G47.00 Active 524777422 Problem Primary insomnia F51.01 Active 3949555 Problem Rheumatoid arthritis M06.9 Active 37397083 Problem Atrial fibrillation I48.91 Active 80588638 Problem Osteoarthritis of foot M19.079 Active 542962128 Problem Hypertension I10 Active 23606161 Problem Tobacco abuse, 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 352288281 Problem Edema R60.9 Active 131678907 Problem Dysthymia F34.1 Active 26177595 Problem COPD (chronic obstructive pulmonary disease) J44.9 Active 95834236 ALLERGIES No Information ENCOUNTERS Encounter Location Date Diagnosis [facility] [id number] [place] [address] 35719 -8205 Apr, Cough R05 and Viral illness B34.9 [facility] [address] 58373- 2172 Apr, Encounter for immunization Z23 [facility] [address] 025[address]- 1656 Apr, Chronic pain syndrome G89.4 [facility] [id number] [place] [address] 99209 -8697 Apr, Left acute otitis media H66.92 [facility] [id number] [place] [address] 20573- 7232 Mar, Rheumatoid arthritis M06.9 ; Other chronic pain G89.29 ; History of oral cancer Z85.819 and History of tachycardia Z87.898 [facility] [id number] [place] [address] 80993- 3855 Mar, Chronic pain syndrome G89.4 [facility] [id number] [place] [address] 07370- 0417 Feb, Chronic pain syndrome G89.4 [facility] [id number] [place] [address] 62481- 2725 Feb, Chronic pain syndrome G89.4 [facility] [id number] [place] [address] 81433- 3336 Jan, Chronic pain syndrome G89.4 [facility] [id number] [place] [address] 99552- 4789 Jan, [facility] [id number] [place] [address] 70606- 5697 Dec, Chronic pain syndrome G89.4 [facility] [address] [address] November, Chronic pain syndrome G89.4 [facility] [id number] [place] [address] 22733- 0721 November, [facility] [id number] [place] [address] 59908- 2270 Oct, Chronic pain syndrome G89.4 [facility] [id number] [place] [address] 69819- 4675 Oct, [facility] [id number] [place] [address] 03399- 9438 Oct, Chronic pain syndrome G89.4 [facility] [id number] [place] [address] 06526- 2463 Oct, [facility] [id number] [place] [address] 70736- 6059 Oct, [facility] [id number] [place] [address] 52650- 1998 Sep, Left upper quadrant pain R10.12 ; Chronic pain syndrome G89.4 ; Left lower quadrant pain R10.32 ; Other chronic pain G89.29 ; Sacrococcygeal disorders, not elsewhere classified M53.3 and Seasonal allergic rhinitis due to pollen J30.1 [facility] [address] [address] 4513 Sep, Chronic pain syndrome G89.4 [facility] [address] [place] [address] 7940 Sep, [facility] [address] [place] [address] 25586- 3081 Aug, Chronic pain syndrome G89.4 [facility] [address] [address]- 5250 Aug, [facility] [id number] [place] [address] 31726- 7922 Aug, Insomnia, unspecified G47.00 [facility] [address] [address] 2812 Jul, [facility] [id number] [place] [address] 15435- 2608 Jul, [facility] [id number] [place] [address] 77081- 7819 Jul, Chronic pain syndrome G89.4 [facility] [id number] [place] [address] 97246- 8029 Jun, Chronic pain syndrome G89.4 [facility] [id number] [place] [address] 98733- 6217 Jun, Chronic pain syndrome G89.4 [facility] [id number] [place] [address] 69806- 9398 May, [facility] [id number] [place] [address] 32822- 4979 May, Shortness of breath R06.02 ; Peripheral vascular disease, unspecified I73.9 ; Pain in right knee M25.561 ; Other chronic pain G89.29 ; Chest wall pain R07.89 ; Chronic pain syndrome G89.4 ; Primary insomnia F51.01 and Ear pain, left H92.02 [facility] [address] [place] [address] 78068- 2111 May, Anxiety F41.9 [facility] [id number] [place] [address] 65690- 0350 Apr, Pneumonia due to infectious organism, unspecified laterality , unspecified part of lung J18.9 ; Hypoxia R09.02 ; Bradycardia R00.1 ; History of Clostridium difficile Z87.19 and Primary insomnia F51.01 [facility] [address], [place] [address]- 5393 Apr, Anxiety F41.9 [facility] [id number] [place] [address] 52578- 9038 Apr, [facility] [id number] [place] [address] 12485- 6110 Mar, Anxiety F41.9 [facility] [id number] [place] [address] 62151- 8743 Feb, [facility] [id number] [place] [address] 58876- 4055 Feb, [facility] [id number] [place] [address] 39787- 4995 Feb, Abnormal finding on urinalysis R82.90 [facility] [address] 42890- 6310 Feb, [facility] [id number] [place] [address] 61956- 6502 Feb, Shortness of breath R06.02 ; Tachycardia R00.0 ; Cough R05 ; Ill feeling R68.89 and Abnormal finding on urinalysis R82.90 [facility] [id number] [place] [address] 45293- 8741 Feb, Anxiety F41.9 [facility] [id number] [place] [address] 28117 -9402 Feb, Sore throat J02.9 and Acute diffuse otitis externa of left ear H60.312 [facility] [id number] [place] [address] 52708- 8127 Jan, [facility] [id number] [place] [address] 23610- 2141 Jan, [facility] [address] [id number] Jan, [facility] [id number] [place] [address] 83241- 5777 Jan, Depression, unspecified depression type F32.9 ; Chronic bronchitis, unspecified chronic bronchitis type J42 ; Chronic pain syndrome G89.4 and Anxiety F41.9 [facility] [address], [place] [address]- 6408 14 Jan, 2017 [facility] [id number] [place] [address] 36424- 1810 Jan, [facility] [address] [place] [address] 13563- 2451 Jan, [facility] [id number] [place] [address] [id number] Jan, Chronic pain syndrome G89.4 [facility] [address] [place] [address] Dec, History of right knee surgery Z98.890 [facility] [id number] [place] [address] 50222- 4174 Dec, [facility] [id number] [place] [address] 47191- 3837 Dec, Chronic pain syndrome G89.4 [facility] [address] [place] [address] 71266- 7684 November, Anxiety F41.9 [facility] [id number] [place] [address] 26433 -1585 November, Acute cystitis without hematuria N30.00 [facility] [id number] [place] [address] 33431 -7030 November, Fever, unspecified fever cause R50.9 and Acute cystitis without hematuria N30.00 [facility] [address] [place] [address] 91498- 7629 November, Chronic pain syndrome G89.4 [facility] [id number] [place] [address] 08559- 5540 Oct, Anxiety F41.9 [facility] [address] [place] [address] 29680- 7164 Oct, Chronic pain syndrome G89.4 [facility] [address] [address]- 4983 Oct, Chronic pain syndrome G89.4 [facility] [address] [place] [address] 19818- 1128 Oct, [facility] [id number] [place] [address] 19989- 5014 Oct, Chronic pain syndrome G89.4 ; Pain in right knee M25.561 ; History of Clostridium difficile Z87.19 ; Iron deficiency anemia, unspecified iron deficiency anemia type D50.9 ; Peripheral vascular disease, unspecified I73.9 and Atrial fibrillation I48.91 [facility] [id number] [place] [address] 08147- 3768 Oct, [facility] [id number] [place] [address] 56869- 0011 Oct, Chronic pain syndrome G89.4 [facility] [address] [place] [address] 78579- 3240 Sep, [facility] [address] [place] [address] 34659- 6841 Sep, Depression, unspecified depression type F32.9 ; Chronic bronchitis, unspecified chronic bronchitis type J42 ; Chronic pain syndrome G89.4 and Anxiety F41.9 [facility] [address] [place] [id number] Sep, History of Clostridium difficile infection Z86.19 and History of stroke Z86.73 [facility] [id number] [place] [address] [id number] Sep, Anxiety F41.9 [facility] [address], [place] [address]- 4618 Sep, Chronic pain syndrome G89.4 [facility] [address] [place] [address] 54182- 4740 Sep, [facility] [id number] [place] [address] [id number] Sep, [facility] [address] [place] [address] 45543- 2470 Aug, Anxiety F41.9 [facility] [id number] [place] [address] 28512- 7762 Aug, Anxiety F41.9 [facility] [address] [place] [address] 14606- 5043 Aug, [facility] [id number] [place] [address] 73657- 6944 14 Aug, 2016 Acute knee pain, unspecified laterality M25.569 [facility] [id number] [place] [address] 48119- 1542 Aug, [facility] [id number] [place] [address] 72885- 0843 Aug, Chronic pain syndrome G89.4 [facility] [id number] [place] [address] 63193- 3408 Aug, [facility] [address] [place] [address] 44478- 7106 Aug, [facility] [id number] [place] [address] 48829- 9022 Jul, [facility] [address] [place] [address] 08986- 8858 Jul, Anxiety F41.9 [facility] [id number] [place] [address] 97551- 3101 Jul, Clostridium difficile diarrhea A04.7 [employer] [facility] [address] [place] [id number] Jul, Clostridium difficile diarrhea A04.7 ; Chronic pain syndrome G89.4 ; Chronic obstructive pulmon disease w acute lower resp infct J44.0 and Pain in right knee M25.561 [facility] [id number] [place] [address] [id number] Jul, [facility] [address] [place] [address]9014 Jul, Anxiety F41.9 and Chronic pain syndrome G89.4 [facility] [id number] [place] [address] 64648- 5498 Jun, Anxiety F41.9 [facility] [address] [place] [address] 89548- 1426 Jun, Rheumatoid arthritis 714.0 [facility] [id number] [place] [address] 66183- 0232 Jun, Chronic pain syndrome G89.4 [facility] [id number] [place] [address] 13461- 4227 Jun, [facility] [id number] [place] [address] 79864- 9418 Jun, [facility] [id number] [place] [address] 73551- 8851 Jun, History of pneumonia Z87.01 and History of Clostridium difficile Z87.19 [facility] [address] [place] [address] 74362- 5010 Jun, [facility] [address] [place] [address] 02873- 9919 May, [facility] [address] [place] [address] 54339- 4340 May, Anxiety F41.9 [facility] [address] [place] [address] 30555- 3635 May, Chronic pain syndrome G89.4 [facility] [address] [place] [address] 39659- 6210 15 May, 2016 Chronic bronchitis, unspecified chronic bronchitis type J42 [facility] [address] [place] [address] 85575- 1984 May, [facility] [id number] [place] [address] 30206- 0088 May, C. difficile diarrhea A04.7 ; Peripheral edema R60.9 ; COPD (chronic obstructive pulmonary disease) J44.9 ; Rheumatoid arthritis, involving unspecified site, unspecified rheumatoid factor presence M06.9 ; Pain in right knee M25.561 ; Pain in left knee M25.562 and Other chronic pain G89.29 [facility] [id number] [place] [address] 39475- 9783 May, [facility] [id number] [place] [address] 33220- 8828 May, [facility] [id number] [place] [address] 92138- 2190 May, Anxiety F41.9 [facility] [id number] [place] [address] 76513- 9571 Apr, [facility] [id number] [place] [address] 26121- 3236 Apr, Chronic pain syndrome G89.4 [facility] [id number] [place] [address] 99551- 2981 Apr, Leg pain, left M79.605 [facility] [id number] [place] [address] 98455- 4194 Apr, [facility] [id number] [place] [address] 23254- 7640 Apr, [facility] [id number] [place] [address] 76393- 5477 Apr, [facility] [id number] [place] [address] 22841- 1823 Mar, Chronic pain syndrome G89.4 [facility] [id number] [place] [address] 94965- 4474 Mar, Acute frontal sinusitis, recurrence not specified J01.10 [facility] [id number] [place] [address] 71308- 7012 Mar, Iron deficiency anemia, unspecified iron deficiency anemia type D50.9 ; Rheumatoid arthritis with positive rheumatoid factor, involving unspecified site M05.9 and Depression, unspecified depression type F32.9 [facility] [address] [place] [address] 08050- 8351 Mar, Iron deficiency anemia, unspecified iron deficiency anemia type D50.9 ; Depression, unspecified depression type F32.9 and Rheumatoid arthritis with positive rheumatoid factor, involving unspecified site M05.9 [facility] [id number] [place] [address] 43940- 2233 Mar, [facility] [id number] [place] [address] 98970- 0812 Mar, [facility] [id number] [place] [address] 83353- 2864 Feb, Chronic pain syndrome G89.4 [facility] [id number] [place] [address] 77903- 0990 Feb, 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 ; Status post CVA Z86.73 ; Hemiplegia G81.90 and Anemia, unspecified type D64.9 [facility] [address] [place] [address] 34719- 4534 Feb, [facility] [address] [place] [address] 68778- 2417 Feb, Anemia, unspecified type D64.9 [facility] [address] [place] [address] 86463- 2831 Feb, [facility] [address] [place] [address] 80524- 9919 Feb, Iron deficiency anemia, unspecified iron deficiency anemia type D50.9 [facility] [address], [place] [address]- 4416 Feb, [facility] [address] [place] [address] 13860- 6600 Feb, Chronic bronchitis, unspecified chronic bronchitis type J42 [facility] [address], [place] [address]- 3283 Feb, Iron deficiency anemia, unspecified iron deficiency anemia type D50.9 [facility] [address], [place] [address]- 6965 Feb, Chronic pain syndrome G89.4 [facility] [id number] [place] [address] 41182- 1959 Feb, Anemia, unspecified type D64.9 and Hypoxia R09.02 [facility] [id number] [place] [address] 13441- 2325 Feb, Anemia, unspecified type D64.9 [facility] [id number] [place] [address] 99735- 4163 Jan, [facility] [id number] [place] [address] 80740- 9509 Jan, Anemia, unspecified type D64.9 [facility] [address], [place] [address]- 2852 Jan, [facility] [address] [place] [address] 47048- 4015 Jan, Anemia, unspecified type D64.9 [facility] [address] [place] [address]- 9400 Jan, Anemia, unspecified type D64.9 [facility] [address] [place] [address]- 7838 Jan, [facility] [address] [place] [address]- 4557 Jan, Anemia, unspecified type D64.9 [facility] [address] [place] [address]- 5797 Jan, [facility] [id number] [place] [address] 38706- 3463 Jan, [facility] [address] [place] [address] 57869- 3160 Jan, Chronic pain syndrome G89.4 [facility] [id number] [place] [address] 57853- 8623 Jan, Anemia, unspecified type D64.9 [facility] [id number] [place] [address] 91065- 9816 Jan, Dysthymia F34.1 ; Cervicalgia M54.2 ; Fatigue, unspecified type R53.83 and Depression, unspecified depression type F32.9 [facility] [id number] [place] [address] 53414- 5050 Dec, [facility] [id number] [place] [address] 51317- 5611 Dec, Anxiety F41.9 [facility] [id number] [place] [address] 03481- 4588 Dec, Chronic pain syndrome G89.4 [facility] [id number] [place] [address] 60608- 8072 November, [facility] [id number] [place] [address] 74093- 3119 November, Edema R60.9 and Dizziness R42 [facility] [id number] [place] [address] [phone]- [phone] November, [facility] [id number] [place] [address] 39913- 9802 November, [facility] [id number] [place] [address] [phone]- 1097 November, COPD (chronic obstructive pulmonary disease) J44.9 ; Increased tracheal secretions J39.8 and Edema R60.9 [facility] [id number] [address] Oct, [facility] [id number] [address] 28 Oct, 2015 Shortness of breath R06.02 and Edema R60.9 [facility] [id number] [place] [address] 63575- [phone] 20 Oct, 2015 Chronic bronchitis, unspecified chronic bronchitis type J42 ; Peripheral vascular disease, unspecified I73.9 ; Rheumatoid arthritis M06.9 and Atrial fibrillation I48.91 [facility] [id number] [place] [address] 18960- 7469 19 Oct, 2015 [facility] [id number] [place] [address] [phone]- [phone] 13 Oct, 2015 [facility] [id number] [place] [address] 31634- 3797 13 Oct, 2015 [facility] [id number] [place] [address] [phone]- [phone] Oct, [facility] [id number] [place] [address] 30741 -5568 Oct, COPD exacerbation J44.1 [facility] [id number] [place] [address] 02523- 6893 Sep, [facility] [id number] [place] [address] 31122- 1591 Sep, [facility] [id number] [place] [address] 15885- 1757 Sep, [facility] [id number] [place] [address] 41006- 2339 Aug, [facility] [id number] [place] [address] 89835- 4224 16 Aug, 2015 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 and PVD (peripheral vascular disease ) I73.9 [facility] [id number] [place] [address] 48271- 5256 16 Aug, 2015 Bronchitis J40 ; COPD (chronic obstructive pulmonary disease ) J44.9 and Dysthymia F34.1 [facility] [address] [address] 3[address] Aug, [facility] [id number] [place] [address] 27944- 5536 Jul, [facility] [id number] [place] [address] 92332- 5257 Jul, [facility] [id number] [place] [address] 60954- 1671 Jul, [facility] [id number] [place] [address] 61547- 2100 Jun, [facility] [id number] [place] [address] 25026- 5935 Jun, [facility] [id number] [place] [address] 23764- 5544 Jun, Peripheral vascular disease I73.9 [facility] [id number] [place] [address] 46379- 0593 Jun, [facility] [id number] [place] [address] 87377- 5584 Jun, [facility] [id number] [place] [address] 01245- 6183 Jun, Leg pain, left M79.605 ; Dysphagia, unspecified dysphagia R13.10 ; Insomnia, unspecified type G47.00 ; PVD (peripheral vascular disease) I73.9 and 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 [facility] [address] [address] 5791 May, [facility] [id number] [place] [address] 409724- 4064 May, [facility] [id number] [place] [address] 79132- 7475 May, [facility] [id number] [address]- 1151 May, [facility] [address] [address]- 5647 May, [facility] [address] [address]- 6688 Apr, [facility] [id number] [place] [address] 43464- 9540 Apr, [facility] [id number] [place] [address] 19830- 8880 Mar, [facility] [id number] [place] [address] 22524- 1780 Mar, [facility] [id number] [place] [address] 94441- 2120 Feb, [facility] [id number] [place] [address] 57609- 3909 Feb, Nicotine abuse 305.1 ; Arthralgia 719.40 and 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 [facility] [address] [address]- 7666 Feb, [facility] [address] [address]- 6358 Jan, [facility] [address] [address]- 8521 Jan, [facility] [address] [address]- 4449 Jan, [facility] [id number] [address]- 3860 Jan, [facility] [address] [address]- 7692 Jan, 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 ; Rheumatoid arthritis 714.0 ; Hypertension 401.9 ; GERD (gastroesophageal reflux disease) 530.81 ; Nicotine addiction 305.1 and Leukocytosis 288.60 [facility] [address] [address]- 3008 Jan, 2014 [facility] [id number] [place] [address] 01653- 7316 Jan, 2014 [facility] [address] [address]- 5217 Jan, 2014 [facility] [id number] [place] [address] 38276- 4989 Jan, [facility] [id number] [place] [address] 44041- 2942 Jan, 2014 [facility] [id number] [place] [address] 84575- 3048 Dec, [facility] [id number] [place] [address] 86025- 4415 Dec, [facility] [id number] [place] [address] 20812- 2656 Dec, [facility] [address] [address]- 3889 Dec, [facility] [id number] [place] [address] 09094- 5698 November, [facility] [address], [place] [address]- 5113 November, [facility] [address] [address]- 2281 November, Shortness of breath 786.05 [facility] [address] [address]- 0891 November, Rheumatoid arthritis 714.0 [facility] [address] [address]- 9913 November, 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 [facility] [address] [address]- 0432 November, Neuropathy 355.9 ; Insomnia 780.52 ; Dysthymia 300.4 ; Shortness of breath 786.05 ; Rheumatoid arthritis 714.0 and Nausea 787.02 [facility] [id number] [address]- 9662 November, [facility] [id number] [address]- 9072 November, [facility] [id number] [place] [address] 79402- 9827 Oct, [facility] [id number] [address]- 5161 Oct, [facility] [id number] [place] [address] 66497- 0456 Oct, [facility] [id number] [place] [address] 83105- 1428 Oct, [facility] [id number] [place] [address] 57352- 6058 Sep, [facility] [address], [place] [address]- 1172 Sep, [facility] [address], [place] [address]- 9835 Sep, [facility] [address], [place] [address]- 1921 Sep, [facility] [address], [place] [address]- 3006 Sep, [facility] [address], [place] [address]- 2555 Sep, [facility] [id number] [address]- 3256 Sep, [facility] [address] 1269 Sep, [facility] [id number] [address]- 0839 Aug, [facility] [place] [facility] [address] [id number] [place] [address]- 5386 Aug, [facility] [place] [facility] [address] [id number] [place] 5946 Aug, [facility] [place] [facility] [address] [id number] [place] [address]- 4246 Aug, [facility] [place] [facility] [address] [id number] [place] [address]- 6933 Aug, [facility] [place] [facility] [address] [id number] [place] [address]- 2911 Aug, [facility] [place] [facility] [address] [id number] [place] [address]- 2169 Jul, [facility] [place] [facility] [address] [id number] [place] [address]- 1760 Jul, [facility] [place] [facility] [address] [id number] [place] [address]- 4361 Jul, [facility] [place] [facility] [address] [id number] [place] [address]- 8287 Jul, [facility] [place] [facility] [address] [id number] [place] [address]- 8166 Jul, [facility] [place] [facility] [address] [id number] [place] [address]- 9213 Jul, [facility] [place] [facility] [address] [id number] [place] [address]- 4218 Jul, [facility] [place] [facility] [address] [id number] [place] [address]- 4806 Jul, [facility] [place] [facility] [address] [id number] [place] [address]- 7130 Jul, [facility] [place] [facility] [address] [id number] [place] [address]- 9846 Jul, [facility] [place] [facility] [address] [id number] [place] [address]- 9723 Jun, [facility] [place] [facility] [address] [id number] [place] [address]- 8964 Jun, [facility] [place] [facility] [address] [id number] [place] 3415 Jun, [facility] [place] [facility] [address] [id number] [place] [address]- 4720 Jun, [facility] [place] [facility] [address] [id number] [place] [address]- 9929 Jun, [facility] [place] [facility] [address] [id number] [place] [address]- 2756 Jun, [facility] [place] [facility] [address] [id number] [place] [address]- 8724 Jun, [facility] [place] [facility] [address] [id number] [place] [address]- 2564 Jun, [facility] [place] [facility] [address] [id number] [place] [address]- 0816 Jun, [facility] [place] [facility] [address] [id number] [place] [address]- 9135 Jun, [facility] [place] [facility] [address] [id number] [place] [address]- 2778 Jun, [facility] [place] [facility] [address] [id number] [place] [address]- 3912 Jun, [facility] [place] [facility] [address] [id number] [place] [address]- 2372 Jun, [facility] [place] [facility] [address] [id number] [place] [address]- 3411 Jun, [facility] [place] [facility] [address] [id number] [place] [address]- 0537 Jun, [facility] [place] [facility] [address] [id number], [place] [address]- 0443 Jun, [facility] [place] [facility] [address] [id number] [place] [address]- 4657 May, [facility] [place] [facility] [address] [id number] [place] [address]- 7603 May, [facility] [place] [facility] [address] [id number] [place] [address]- 7058 May, [facility] [place] [facility] [address] [id number] [place] [address]- 1146 May, [facility] [place] [facility] [address] [id number] [place] [address]- 5967 May, [facility] [place] [facility] [address] [id number] [place] [address]- 9819 May, [facility] [place] [facility] [address] [id number] [place] [address]- 6724 May, [facility] [place] [facility] [address] [id number] [place] [address]- 6437 May, [facility] [place] [facility] [address] [id number], [place] [address]- 6465 May, [facility] [place] [facility] [address] [id number] [place] [address]- 8777 Apr, [facility] [place] [facility] [address] [id number], [place] [address]- 9997 Apr, [facility] [place] [facility] [address] [id number], [place] [address]- 3543 Apr, [facility] [place] [facility] [address] [id number], [place] [address]- 7306 Apr, [facility] [place] [facility] [address] [id number], [place] [address]- 5127 Apr, [facility] [place] [facility] [address] [id number], [place] [address]- 8452 Apr, [facility] [place] [facility] [address] [id number] [place] [address]- 0048 Apr, 2013 [facility] [place] [facility] [address] [id number] [place] [address]- 6884 Apr, 2013 [facility] [place] [facility] [address] [id number] [place] [address]- 2987 Apr, 2013 [facility] [place] [facility] [address] [id number] [place] [address]- 9332 Apr, 2013 [facility] [place] [facility] [address] [id number] [place] [address]- 8614 Apr, [facility] [place] [facility] [address] [id number] [place] [address]- 3073 Apr, [facility] [place] [facility] [address] [id number] [place] [address]- 2376 Mar, 2013 [facility] [place] [facility] [address] [id number] [place] [address]- 9784 22 Mar, 2013 [facility] [place] [facility] [address] [id number] [place] [address]- 9635 Mar, 2013 [facility] [place] [facility] [address] [id number] [place] [address]- 8633 Mar, 2013 [facility] [place] [facility] [address] [id number] [place] [address]- 3588 11 Mar, 2013 [facility] [place] [facility] [address] [id number] [place] [address]- 254 11 Mar, 2013 [facility] [place] [facility] [address] [id number] [place] [address]- 2549 11 Sep, 2013 [facility] [place] [facility] [address] [id number] [place] [address]- 2546 11 Mar, 2013 [facility] [place] [facility] [address] [id number] [place] [address]- 2547 09 Mar, 2013 [facility] [place] [facility] [address] [id number] [place] [address]- 7528 Mar, [facility] [place] [facility] [address] [id number] [place] [address]- 3031 Feb, [facility] [place] [facility] [address] [id number] [place] [address]- 0797 Feb, [facility] [place] [facility] [address] [id number] [place] [address]- 3923 Feb, [facility] [place] [facility] [address] [id number] [place] [address]- 3093 Feb, [facility] [place] [facility] [address] [id number] [place] [address]- 7009 Feb, [facility] [place] [facility] [address] [id number] [place] [address]- 6922 Feb, [facility] [place] [facility] [address] [id number] [place] [address]- 5305 Feb, [facility] [place] [facility] [address] [id number] [place] [address]- 6605 Feb, [facility] [place] [facility] [address] [id number] [place] [address]- 4552 Feb, [facility] [place] [facility] [address] [id number] [place] [address]- 3941 Feb, [facility] [place] [facility] [address] [id number] [place] [address]- 8195 Feb, [facility] [place] [facility] [address] [id number] [place] [address]- 9462 Feb, [facility] [place] [facility] [address] [id number] [place] [address]- 9452 Feb, [facility] [place] [facility] [address] [id number] [place] [address]- 6364 Feb, [facility] [place] [facility] [address] [id number] [place] [address]- 5243 Feb, [facility] [place] [facility] [address] [id number] [place] [address]- 6770 Feb, [facility] [place] [facility] [address] [id number] [place] [address]- 1790 Jan, [facility] [place] [facility] [address] [id number] [place] [address]- 7907 Jan, [facility] [place] [facility] [address] [id number] [place] [address]- 7710 Jan, [facility] [place] [facility] [address] [id number] [place] [address]- 2080 Jan, [facility] [place] [facility] [address] [id number] [place] [address]- 8011 Jan, [facility] [place] [facility] [address] [id number] [place] [address]- 9986 Jan, [facility] [place] [facility] [address] [id number] [place] [address]- 0632 Dec, [facility] [place] [facility] [address] [id number] [place] [address]- 9640 Dec, [facility] [place] [facility] [address] [id number] [place] [address]- 1755 Dec, [facility] [place] [facility] [address] [id number] [place] [address]- 3953 Dec, [facility] [place] [facility] [address] [id number] [place] [address]- 7302 Dec, [facility] [place] [facility] [address] [id number] [place] [address]- 7645 Dec, [facility] [place] [facility] [address] [id number] [place] [address]- 6048 Dec, [facility] [place] [facility] [address] [id number] [place] [address]- 2477 Dec, [facility] [place] [facility] [address] [id number] [place] [address]- 1970 November, [facility] [place] [facility] [address] [id number] [place] [address]- 6788 November, [facility] [place] [facility] [address] [id number] [place] [address]- 8025 November, [facility] [place] [facility] [address] [id number] [place] [address]- 8715 November, [facility] [place] [facility] [address] [id number] [place] [address]- 4841 November, [facility] [place] [facility] [address] [id number] [place] [address]- 2354 November, [facility] [place] [facility] [address] [id number] [place] [address]- 1011 Oct, [facility] [place] [facility] [address] [id number] [place] [address]- 0886 Oct, [facility] [place] [facility] [address] [id number] [place] [address]- 0242 Oct, [facility] [place] [facility] [address] [id number] [place] [address]- 7796 Oct, [facility] [place] [facility] [address] [id number] [place] [address]- 7835 Sep, [facility] [place] [facility] [address] [id number] [place] [address]- 2710 Sep, [facility] [place] [facility] [address] [id number] [place] [address]- 0900 Sep, [facility] [place] [facility] [address] [id number] [place] [address]- 6564 Sep, [facility] [place] [facility] [address] [id number] [place] [address]- 5192 Sep, [facility] [place] [facility] [address] [id number] [place] 3870 Sep, [facility] [place] [facility] [address] [id number] [place] [address]- 1386 Aug, [facility] [place] [facility] [address] [id number] [place] [address]- 8706 Aug, [facility] [place] [facility] [address] [id number] [place] [address]- 2206 Aug, [facility] [place] [facility] [address] [id number] [place] [address]- 5526 Aug, [facility] [place] [facility] [address] [id number] [place] [address]- 7014 Aug, [facility] [place] [facility] [address] [id number] [place] [address]- 7448 Aug, [facility] [place] [facility] [address] [id number] [place] [address]- 5137 Jul, [facility] [place] [facility] [address] [id number] [place] [address]- 3796 Jul, [facility] [place] [facility] [address] [id number] [place] [address]- 1814 Jul, [facility] [place] [facility] [address] [id number] [place] [address]- 0841 Jul, [facility] [place] [facility] [address] [id number] [place] [address]- 4347 Jul, [facility] [place] [facility] [address] [id number] [place] [address]- 1590 Jul, [facility] [place] [facility] [address] [id number] [place] [address] Jul, [facility] [place] [facility] [address] [id number] [place] [address] Jul, [facility] [place] [facility] [address] [id number] [place] [address] Jul, [facility] [place] [facility] [address] [id number] [place] [address] Jul, [facility] [place] [facility] [address] [id number] [place] [address] Jul, [facility] [address] [id number] [place] [address] Jul, [facility] [address] [id number] [place] [address] Jul, [facility] [address] [id number] [place] [address] Jul, [facility] [address] [id number] [place] [address] Jul, [facility] [address] [id number] [place] [address] Jun, [facility] [address] [id number] [place] [address] Jun, [facility] [address] [id number] [place] [address] Jun, [facility] [address] [id number] [place] [address] Jun, [facility] [address] [facility] [id number] [place] [address] May, [facility] [address] [facility] [id number] [place] [address] May, [facility] [address] [id number] [id number] May, [facility] [address] [id number] [place] [address] May, [facility] [address] [id number] [place] [address] May, [facility] [place] [facility] [address] [id number] [place] [address] May, [facility] [address] [id number] [place] [address] May, [facility] [address] [facility] [id number], [place] [address] May, [facility] [address] [facility] [id number], [place] [address] May, [facility] [address] [id number] [id number] May, [facility] [address] [facility] [id number], [place] [address] May, [facility] [address] [id number] [id number] May, [facility] [id number], [place] [address] May, [facility] [address] [id number] [id number] May, [facility] [address] [facility] [id number], [place] [address] May, IMMUNIZATIONS Vaccine Route Administration Date Status FLULAVAL QUAD 0.5ML (6 MO & UP) 2018 IM Intramuscular May 07, 2018 Administered SOCIAL HISTORY Never Assessed REASON FOR VISIT Flu JOSAFAT marion PLAN OF CARE VITAL SIGNS MEDICATIONS No Known Medications RESULTS No Results PROCEDURES Procedure Date Ordered Result Body Site FLULAVAL QUAD 0.5ML (6 MO & UP) 2018 May 07, 2018 ADMN FLU VAC NO FEE SCHED SAME DAY May 07, 2018 SINGLE IMMUNIZATION ADMIN May 07, 2018 INSTRUCTIONS MEDICATIONS ADMINISTERED No [...]
--- OUTSIDE RECORDS SUMMARY | 2018-09-02 10:39 | XMS REPORT ---
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 604818916 Problem Chronic pain syndrome G89.4 Active 859121947 Problem Leg pain, left M79.605 Active 801483690 Problem Anxiety F41.9 Active 23661153 Problem Dysphagia, unspecified dysphagia R13.10 Active 94333070 Problem Depression, unspecified depression type F32.9 Active 17333168 Problem Iron deficiency anemia, unspecified iron deficiency anemia type D50.9 Active 20586074 Problem Anemia, unspecified type D64.9 Active 546120111 Problem History of oral cancer Z85.819 Active 250922453 Problem Seasonal allergic rhinitis due to pollen J30.1 Active 92042626 Problem 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 351566850 Problem History of cerebrovascular accident with current residual effects I69.90 Active 558371591 Problem Peripheral vascular disease, unspecified I73.9 Active 515435631 Problem Chronic obstructive pulmon disease w acute lower resp infct J44.0 Active 840744718 Problem Other chronic pain G89.29 Active 53725437 Problem Insomnia, unspecified G47.00 Active 836733998 Problem Primary insomnia F51.01 Active 1114366 Problem Rheumatoid arthritis M06.9 Active 34741416 Problem Atrial fibrillation I48.91 Active 87351123 Problem Osteoarthritis of foot M19.079 Active 156027552 Problem Hypertension I10 Active 55315597 Problem Tobacco abuse, 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 Diff Drug Allergy Apr, Active ENCOUNTERS Encounter Location Date Diagnosis [facility] [address], [place] [address] Apr, Left acute otitis media H66.92 [facility] [id number] [place] [address] 24094- 6690 26 Mar, 2018 Rheumatoid arthritis M06.9 ; Other chronic pain G89.29 ; History of oral cancer Z85.819 and History of tachycardia Z87.898 [facility] [id number] [place] [address] 89429- 5258 14 Mar, 2018 Chronic pain syndrome G89.4 [facility] [id number] [place] [address] 93450- 4394 Feb, Chronic pain syndrome G89.4 [facility] [id number] [place] [address] 11254- 1139 Feb, Chronic pain syndrome G89.4 [facility] [id number] [place] [address] 99103- 7158 Jan, Chronic pain syndrome G89.4 [facility] [id number] [place] [address] 86666- 0049 Jan, [facility] [id number] [place] [address] 91342- 8274 Dec, Chronic pain syndrome G89.4 [facility] [id number] [place] [address] 52800- 0606 November, Chronic pain syndrome G89.4 [facility] [id number] [place] [address] 60695- 8277 November, [facility] [id number] [place] [address] 91903- 4710 Oct, Chronic pain syndrome G89.4 [facility] [id number], [place] [address]- 6076 Oct, [facility] [id number] [place] [address] 63780- 4446 Oct, Chronic pain syndrome G89.4 [facility] [id number] [place] [address] 60391- 7923 Oct, [facility] [id number] [place] [address] 93488- 3088 Oct, [facility] [id number] [place] [address] 91895- 1680 Sep, Left upper quadrant pain R10.12 ; Chronic pain syndrome G89.4 ; Left lower quadrant pain R10.32 ; Other chronic pain G89.29 ; Sacrococcygeal disorders, not elsewhere classified M53.3 and Seasonal allergic rhinitis due to pollen J30.1 [facility] [id number] [place] [address] 38449- 1878 Sep, Chronic pain syndrome G89.4 [facility] [id number] [place] [address] 84906- 7076 Sep, [facility] [id number] [place] [address] 13828- 3850 Aug, Chronic pain syndrome G89.4 [facility] [id number] [place] [address] 92147- 8080 Aug, [facility] [id number] [place] [address] 14261- 4865 Aug, Insomnia, unspecified G47.00 [facility] [id number] [place] [address] 33294- 3172 Jul, [facility] [id number] [place] [address] 85467- 3054 Jul, [facility] [id number], [place] [address] 2588 Jul, Chronic pain syndrome G89.4 [facility] [id number] [place] [address] 09095- 3903 Jun, Chronic pain syndrome G89.4 [facility] [id number] [place] [address] 81237- 9705 Jun, Chronic pain syndrome G89.4 [facility] [id number] [place] [address] 70792- 9026 May, [facility] [id number] [place] [address] 87545- 8923 May, Shortness of breath R06.02 ; Peripheral vascular disease, unspecified I73.9 ; Pain in right knee M25.561 ; Other chronic pain G89.29 ; Chest wall pain R07.89 ; Chronic pain syndrome G89.4 ; Primary insomnia F51.01 and Ear pain, left H92.02 [facility] [id number] [place] [address] 23556- 3041 May, Anxiety F41.9 [facility] [id number] [place] [address] 86438- 8282 Apr, Pneumonia due to infectious organism, unspecified laterality , unspecified part of lung J18.9 ; Hypoxia R09.02 ; Bradycardia R00.1 ; History of Clostridium difficile Z87.19 and Primary insomnia F51.01 [facility] [id number] [place] [address] 29090- 9593 Apr, Anxiety F41.9 [facility] [id number] [place] [address] 47339- 9199 Apr, [facility] [id number] [place] [address] 61025- 8788 Mar, Anxiety F41.9 [facility] [id number] [place] [address] 29319- 8360 Feb, [facility] [id number] [place] [address] 11387- 2355 Feb, [facility] [address] 14933- 5787 Feb, Abnormal finding on urinalysis R82.90 [facility] [address] 18220- 3675 Feb, [facility] [address] 15705- 0502 Feb, Shortness of breath R06.02 ; Tachycardia R00.0 ; Cough R05 ; Ill feeling R68.89 and Abnormal finding on urinalysis R82.90 [facility] [address] 19110- 7777 Feb, Anxiety F41.9 [facility] [address] 29505 -1796 Feb, Sore throat J02.9 and Acute diffuse otitis externa of left ear H60.312 [facility] [address] 04373- 7440 Jan, [facility] [address] 54432- 0706 Jan, [facility] [address] [id number] Jan, [facility] [address] 42630- 0511 Jan, Depression, unspecified depression type F32.9 ; Chronic bronchitis, unspecified chronic bronchitis type J42 ; Chronic pain syndrome G89.4 and Anxiety F41.9 [facility] [address] 70918- 9026 Jan, [facility] [id number] [place] [address] 09489- 7496 Jan, [facility] [address] 58002- 9801 Jan, [facility] [id number] [place] [address] [id number] Jan, Chronic pain syndrome G89.4 [facility] [address] [place] [id number] Dec, History of right knee surgery Z98.890 [facility] [address], [place] [address]- 7311 Dec, [facility] [id number] [place] [address] 66996- 5599 Dec, Chronic pain syndrome G89.4 [facility] [id number] [place] [address] 18977- 1609 November, Anxiety F41.9 [facility] [id number] [place] [address] 23631 -2807 November, Acute cystitis without hematuria N30.00 [facility] [id number] [place] [address] 08992 -2440 November, Fever, unspecified fever cause R50.9 and Acute cystitis without hematuria N30.00 [facility] [id number] [place] [address] 64894- 1309 November, Chronic pain syndrome G89.4 [facility] [id number] [place] [address] 25409- 0964 Oct, Anxiety F41.9 [facility] [id number] [place] [address] 28612- 8928 Oct, Chronic pain syndrome G89.4 [facility] [id number] [place] [address] 52577- 0275 Oct, Chronic pain syndrome G89.4 [facility] [id number] [place] [address] 83742- 5216 Oct, [facility] [id number] [place] [address] 49314- 4210 Oct, Chronic pain syndrome G89.4 ; Pain in right knee M25.561 ; History of Clostridium difficile Z87.19 ; Iron deficiency anemia, unspecified iron deficiency anemia type D50.9 ; Peripheral vascular disease, unspecified I73.9 and Atrial fibrillation I48.91 [facility] [address], [place] [address]- 9614 Oct, [facility] [id number] [place] [address] 64187- 5547 Oct, Chronic pain syndrome G89.4 [facility] [address], [place] [address]- 4891 Sep, [facility] [id number] [place] [address] 53841- 3871 Sep, Depression, unspecified depression type F32.9 ; Chronic bronchitis, unspecified chronic bronchitis type J42 ; Chronic pain syndrome G89.4 and Anxiety F41.9 [facility] [address] [place] [id number] Sep, History of Clostridium difficile infection Z86.19 and History of stroke Z86.73 [facility] [id number] [place] [address] [id number] Sep, Anxiety F41.9 [facility] [id number] [place] [address] 25752- 4735 Sep, Chronic pain syndrome G89.4 [facility] [address], [place] [address]- 4620 Sep, [facility] [id number] [place] [address] [id number] Sep, [facility] [id number] [place] [address] 13190- 5773 Aug, Anxiety F41.9 [facility] [id number] [place] [address] 59899- 0094 Aug, Anxiety F41.9 [facility] [id number] [place] [address] 47198- 2632 16 Aug, 2016 [facility] [id number] [place] [address] 25368- 4284 14 Aug, 2016 Acute knee pain, unspecified laterality M25.569 [facility] [address], [place] [address]- 8444 13 Aug, 2016 [facility] [id number] [place] [address] 03399- 7555 Aug, Chronic pain syndrome G89.4 [facility] [id number] [place] [address] 89425- 5081 Aug, [facility] [id number] [place] [address] 69715- 5948 Aug, [facility] [id number] [place] [address] 10690- 9884 Jul, [facility] [id number] [place] [address] 01218- 5153 Jul, Anxiety F41.9 [facility] [id number] [place] [address] 44972- 1648 Jul, Clostridium difficile diarrhea A04.7 [facility] [address] [id number] Jul, Clostridium difficile diarrhea A04.7 ; Chronic pain syndrome G89.4 ; Chronic obstructive pulmon disease w acute lower resp infct J44.0 and Pain in right knee M25.561 [facility] [id number] [id number] Jul, [facility] [id number] [place] [address] 50843 -4892 Jul, Anxiety F41.9 and Chronic pain syndrome G89.4 [facility] [address], [place] [address]- 2555 Jun, Anxiety F41.9 [facility] [id number] [place] [address] 56658- 5156 Jun, Rheumatoid arthritis 714.0 [facility] [address], [place] [address]- 0543 Jun, Chronic pain syndrome G89.4 [facility] [address], [place] [address]- 8822 Jun, [facility] [address], [place] [address]- 6777 Jun, [facility] [address], [place] [address]- 7559 12 Jun, 2016 History of pneumonia Z87.01 and History of Clostridium difficile Z87.19 [facility] [address], [place] [address]- 6222 06 Jun, 2016 [facility] [address], [place] [address]- 9926 May, [facility] [address] [place] [address] 86853- 9014 May, Anxiety F41.9 [facility] [id number] [place] [address] 08469- 5380 23 May, 2016 Chronic pain syndrome G89.4 [facility] [address] [address]- 8059 15 May, 2016 Chronic bronchitis, unspecified chronic bronchitis type J42 [facility] [address], [place] [address]- 8910 May, [facility] [address], [place] [address]- 1680 09 May, 2016 C. difficile diarrhea A04.7 ; Peripheral edema R60.9 ; COPD (chronic obstructive pulmonary disease) J44.9 ; Rheumatoid arthritis, involving unspecified site, unspecified rheumatoid factor presence M06.9 ; Pain in right knee M25.561 ; Pain in left knee M25.562 and Other chronic pain G89.29 [facility] [address], [place] [address]- 3205 May, [facility] [id number] [place] [address] 85872- 3402 May, [facility] [id number] [place] [address] 28555- 0916 May, Anxiety F41.9 [facility] [id number] [place] [address] 13694- 3003 Apr, [facility] [id number] [place] [address] 78009- 7600 Apr, Chronic pain syndrome G89.4 [facility] [id number] [place] [address] 51977- 0080 Apr, Leg pain, left M79.605 [facility] [id number] [place] [address] 35599- 2945 Apr, [facility] [id number] [place] [address] 22781- 8586 Apr, [facility] [id number] [place] [address] 12530- 1493 Apr, [facility] [id number] [place] [address] 49563- 8949 28 Mar, 2016 Chronic pain syndrome G89.4 [facility] [id number] [place] [address] 94080- 1935 22 Mar, 2016 Acute frontal sinusitis, recurrence not specified J01.10 [facility] [address], [place] [address]- 3223 20 Mar, 2016 Iron deficiency anemia, unspecified iron deficiency anemia type D50.9 ; Rheumatoid arthritis with positive rheumatoid factor, involving unspecified site M05.9 and Depression, unspecified depression type F32.9 [facility] [address], [place] [address]- 8245 13 Mar, 2016 Iron deficiency anemia, unspecified iron deficiency anemia type D50.9 ; Depression, unspecified depression type F32.9 and Rheumatoid arthritis with positive rheumatoid factor, involving unspecified site M05.9 [facility] [id number] [place] [address] 66494- 5108 Mar, [facility] [id number] [place] [address] 38926- 6532 Mar, [facility] [id number] [place] [address] 80044- 9828 Feb, Chronic pain syndrome G89.4 [facility] [id number] [place] [address] 27448- 7083 Feb, 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 ; Status post CVA Z86.73 ; Hemiplegia G81.90 and Anemia, unspecified type D64.9 [facility] [id number] [place] [address] 71509- 6492 Feb, [facility] [id number] [place] [address] 91407- 7522 Feb, Anemia, unspecified type D64.9 [facility] [id number] [place] [address] 19966- 2352 Feb, [facility] [id number] [place] [address] 48914- 4114 Feb, Iron deficiency anemia, unspecified iron deficiency anemia type D50.9 [facility] [id number] [place] [address] 47405- 3926 Feb, [facility] [id number] [place] [address] 73463- 7248 Feb, Chronic bronchitis, unspecified chronic bronchitis type J42 [facility] [id number] [place] [address] 89112- 6095 Feb, Iron deficiency anemia, unspecified iron deficiency anemia type D50.9 [facility] [id number] [place] [address] 85383- 7268 Feb, Chronic pain syndrome G89.4 [facility] [id number] [place] [address]- 4436 Feb, Anemia, unspecified type D64.9 and Hypoxia R09.02 [facility] [id number] [place] [address] 2546 Feb, Anemia, unspecified type D64.9 [facility] [id number] [place] [address], [place] [address]- 6556 Jan, [facility] [address] [place] [address], [place] [address]- 3621 Jan, Anemia, unspecified type D64.9 [facility] [address] [place] [address], [place] [address]- 8596 Jan, [facility] [address] [place] [address]- 3916 Jan, Anemia, unspecified type D64.9 [facility] [address] [place] [address]- 5150 Jan, Anemia, unspecified type D64.9 [facility] [id number] [place] [address]- 9366 Jan, [facility] [id number], [place] [address]- 6319 Jan, Anemia, unspecified type D64.9 [facility] [address], [place] [address]- 4915 Jan, [facility] [id number] [address]- 2546 Jan, [facility] [address], [place] [address]- 4396 Jan, Chronic pain syndrome G89.4 [facility] [id number], [place] [address]- 2546 Jan, Anemia, unspecified type D64.9 [facility] [id number] [place] [address] 52794- 6651 Jan, Dysthymia F34.1 ; Cervicalgia M54.2 ; Fatigue, unspecified type R53.83 and Depression, unspecified depression type F32.9 [facility] [id number] [place] [address] 17405- 7272 Dec, [facility] [address] 68559- 8763 Dec, Anxiety F41.9 [facility] [address] 23646- 9779 Dec, Chronic pain syndrome G89.4 [facility] [address] 96834- 3954 November, [facility] [address] 32351- 6972 November, Edema R60.9 and Dizziness R42 [facility] [id number] [place] [address] 24937- 5046 November, [facility] [address] 98174- 8203 November, [facility] [id number] [place] [address] 37831- 2433 November, COPD (chronic obstructive pulmonary disease) J44.9 ; Increased tracheal secretions J39.8 and Edema R60.[address] [facility] [id number] [place] [address] 88134 -1999 Oct, [facility] [address] 60303 -5063 Oct, Shortness of breath R06.02 and Edema R60.9 [facility] [id number] [place] [address] 08205- 5579 Oct, Chronic bronchitis, unspecified chronic bronchitis type J42 ; Peripheral vascular disease, unspecified I73.9 ; Rheumatoid arthritis M06.9 and Atrial fibrillation I48.91 [facility] [id number] [place] [address] 68478- 6919 Oct, [facility] [id number] [place] [address] 37234- 0245 Oct, [facility] [id number] [place] [address] [id number]- [phone] Oct, [facility] [id number] [place] [address] [phone] Oct, [facility] [id number] [place] [address] [id number] Oct, COPD exacerbation J44.1 [facility] [id number] [place] [address] [phone] Sep, [facility] [address] [id number]- [id number] Sep, [facility] [id number] [place] [address] 88514- [id number] Sep, [facility] [id number] [place] [address] [id number]- [id number] Aug, [facility] [id number] [place] [address] [id number]- [phone] Aug, 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 and PVD (peripheral vascular disease ) I73.9 [facility] [id number] [place] [address] 10525- [phone] Aug, Bronchitis J40 ; COPD (chronic obstructive pulmonary disease ) J44.9 and Dysthymia F34.1 [facility] [id number] [place] [address] [id number] Aug, [facility] [id number] [place] [address] [id number]- [id number] Jul, [facility] [address] [id number] [address] Jul, [facility] [id number] [place] [address] [id number]- [id number] Jul, [facility] [id number] [place] [address] [id number]- [id number] Jun, [facility] [id number] [place] [address] [id number] [id number] Jun, [facility] [id number] [place] [address] [id number]- [id number] Jun, Peripheral vascular disease I73.9 [facility] [id number] [place] [address] [id number] Jun, [facility] [id number] [place] [address] [id number]- [id number] Jun, [facility] [id number] [place] [address] [id number]- 0815 Jun, Leg pain, left M79.605 ; Dysphagia, unspecified dysphagia R13.10 ; Insomnia, unspecified type G47.00 ; PVD (peripheral vascular disease) I73.9 and 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 [facility] [place] [facility] [address] [address] May, [facility] [place] [facility] [address], [place] [address] 7967 May, [facility] [place] [facility] [id number] [place] [address] 05165- 7177 May, [facility] [place] [facility] [id number] [place] [address] 55743- 7159 May, [facility] [place] [facility] [id number] [place] [address] 551106- 5464 May, [facility] [place] [facility] [address], [place] [address] 4032 Apr, [facility] [place] [facility] [address], [place] [address]- 4092 Apr, [facility] [place] [facility] [address], [place] [address] 8852 Mar, [facility] [place] [facility] [address], [place] [address] 9658 Mar, [facility] [place] [facility] [id number] [place] [address] 29195- 2753 Feb, [facility] [place] [facility] [id number] [place] [address] 23544- 8620 Feb, Nicotine abuse 305.1 ; Arthralgia 719.40 and 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 [facility] [place] [facility] [address], [place] [address] 1810 Feb, [facility] [place] [facility] [id number] [place] [address] 82107- 7837 Jan, [facility] [place] [facility] [id number] [place] [address] 85360- 3402 Jan, [facility] [place] [facility] [id number] [place] [address] 58554- 4867 Jan, [facility] [place] [facility] [address], [place] [address]- 4250 Jan, [facility] [place] [facility] [id number] [place] [address] 75419- 1803 Jan, 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 ; Rheumatoid arthritis 714.0 ; Hypertension 401.9 ; GERD (gastroesophageal reflux disease) 530.81 ; Nicotine addiction 305.1 and Leukocytosis 288.60 [facility] [place] [facility] [address], [place] [address]- 8895 Jan, [facility] [place] [facility] [address], [place] [address]- 5221 Jan, [facility] [place] [facility] [id number] [place] [address] 25038- 9215 Jan, [facility] [place] [facility] [address], [place] [address]- 4246 Jan, [facility] [place] [facility] [address], [place] [address]- 5765 Jan, [facility] [place] [facility] [address], [place] [address]- 4801 Dec, [facility] [facility] [id number] [place] [address] 89245- 3957 Dec, [facility] [facility] [id number] [place] [address] 14977- 6315 Dec, [facility] [place] [facility] [id number] [place] [address] 90692- 0046 Dec, [facility] [place] [facility] [address], [place] [address]- 4539 November, [facility] [place] [facility] [id number] [place] [address] 55448- 6513 November, [facility] [place] [facility] [address], [place] [address]- 9731 November, Shortness of breath 786.05 [facility] [place] [facility] [address], [place] [address]- 0953 November, Rheumatoid arthritis 714.0 [facility] [place] [facility] [address], [place] [address]- 4352 November, 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 [facility] [place] [facility] [id number], [place] [address]- 6403 November, Neuropathy 355.9 ; Insomnia 780.52 ; Dysthymia 300.4 ; Shortness of breath 786.05 ; Rheumatoid arthritis 714.0 and Nausea 787.02 [facility] [place] [facility] [id number], [place] [address]- 6566 November, [facility] [place] [facility] [address], [place] [address]- 6873 November, [facility] [place] [facility] [address] [id number] [place] [address]- 5150 Oct, [facility] [place] [facility] [address] [id number] [place] [address]- 5585 Oct, [facility] [place] [facility] [address] [id number] [place] [address]- 0921 Oct, [facility] [place] [facility] [address] [id number] [place] [address]- 2392 Oct, [facility] [place] [facility] [address] [id number] [place] [address]- 9534 Sep, [facility] [place] [facility] [address] [id number] [place] [address]- 5303 Sep, [facility] [place] [facility] [address] [id number] [place] [address]- 4352 Sep, [facility] [place] [facility] [address] [id number] [place] [address]- 3312 Sep, [facility] [place] [facility] [address] [id number] [place] [address]- 3190 Sep, [facility] [place] [facility] [address] [id number] [place] [address]- 4202 Sep, [facility] [place] [facility] [address] [id number] [place] [address]- 6087 Sep, [facility] [place] [facility] [address] [id number] [place] [address]- 5116 Sep, [facility] [place] [facility] [address] [id number] [place] [address]- 1185 Aug, [facility] [place] [facility] [address] [id number] [place] [address]- 4941 Aug, [facility] [place] [facility] [address] [id number] [place] [address]- 8893 Aug, [facility] [place] [facility] [address] [id number] [place] [address]- 9484 Aug, [facility] [place] [facility] [address] [id number] [place] [address]- 6566 Aug, [facility] [place] [facility] [address] [id number] [place] [address]- 9886 Aug, [facility] [place] [facility] [address] [id number] [place] [address]- 7847 Jul, [facility] [place] [facility] [address] [id number] [place] [address]- 9933 Jul, [facility] [place] [facility] [address] [id number] [place] [address]- 6170 Jul, [facility] [place] [facility] [address] [id number] [place] [address]- 0542 Jul, [facility] [place] [facility] [address] [id number] [place] [address]- 3920 Jul, [facility] [place] [facility] [address] [id number] [place] [address]- 2750 Jul, [facility] [place] [facility] [address] [id number] [place] [address]- 8451 Jul, [facility] [place] [facility] [address] [id number] [place] [address]- 3389 Jul, [facility] [place] [facility] [address] [id number] [place] [address]- 1467 Jul, [facility] [place] [facility] [address] [id number] [place] [address]- 1965 Jul, [facility] [place] [facility] [address] [id number] [place] [address]- 0386 Jun, [facility] [place] [facility] [address] [id number] [place] [address]- 7206 Jun, [facility] [place] [facility] [address] [id number] [place] [address]- 6309 Jun, [facility] [place] [facility] [address] [id number] [place] [address]- 1484 Jun, [facility] [place] [facility] [address] [id number] [place] [address]- 2349 Jun, [facility] [place] [facility] [address] [id number] [place] 1206 Jun, [facility] [place] [facility] [address] [id number] [place] [address]- 8494 Jun, [facility] [place] [facility] [address] [id number] [place] [address]- 2332 Jun, [facility] [place] [facility] [address] [id number] [place] [address]- 7737 Jun, [facility] [place] [facility] [address] [id number] [place] [address]- 1234 Jun, [facility] [place] [facility] [address] [id number] [place] [address]- 7285 Jun, [facility] [place] [facility] [address] [id number] [place] [address]- 8864 Jun, [facility] [place] [facility] [address] [id number] [place] [address]- 1952 Jun, [facility] [place] [facility] [address] [id number] [place] [address]- 3321 Jun, [facility] [place] [facility] [address] [id number] [place] [address]- 4094 Jun, [facility] [place] [facility] [address] [id number] [place] [address]- 0490 Jun, [facility] [place] [facility] [address] [id number] [place] [address]- 0747 May, [facility] [place] [facility] [address] [id number] [place] [address]- 8245 May, [facility] [place] [facility] [address] [id number] [place] [address]- 8602 May, [facility] [place] [facility] [address] [id number] [place] [address]- 6687 May, [facility] [place] [facility] [address] [id number] [place] [address]- 9970 May, [facility] [place] [facility] [address] [id number] [place] [address]- 5612 May, [facility] [place] [facility] [address] [id number] [place] [address]- 6546 May, [facility] [place] [facility] [address] [id number] [place] [address]- 5109 May, [facility] [place] [facility] [address] [id number] [place] [address]- 8054 May, [facility] [place] [facility] [address] [id number] [place] [address]- 7383 Apr, [facility] [place] [facility] [address] [id number] [place] [address]- 5778 Apr, [facility] [place] [facility] [address] [id number] [place] [address]- 3636 Apr, [facility] [place] [facility] [address] [facility] [id number] [place] [address]- 7714 Apr, [facility] [place] [facility] [address] [id number] [place] [address]- 4996 Apr, [facility] [place] [facility] [address] [id number] [place] [address]- 8794 Apr, [facility] [place] [facility] [address] [id number] [place] [address]- 1900 Apr, [facility] [place] [facility] [address] [id number] [place] [address]- 1803 Apr, [facility] [place] [facility] [address] [id number] [place] [address]- 7822 Apr, [facility] [place] [facility] [address] [id number] [place] [address]- 2857 Apr, [facility] [place] [facility] [address] [id number] [place] [address]- 7881 Apr, [facility] [place] [facility] [address] [id number] [place] [address]- 7606 Apr, [facility] [place] [facility] [address] [id number] [place] [address]- 0277 Mar, [facility] [place] [facility] [address] [id number] [place] [address]- 9331 Mar, [facility] [place] [facility] [address] [id number] [place] [address]- 3840 Mar, [facility] [place] [facility] [address] [id number] [place] [address]- 9792 Mar, [facility] [place] [facility] [address] [id number] [place] [address]- 9651 Mar, [facility] [place] [facility] [address] [id number] [place] [address]- 7660 Mar, [facility] [place] [facility] [address] [id number] [place] [address]- 5665 Mar, [facility] [place] [facility] [address] [id number] [place] [address]- 1825 Mar, [facility] [place] [facility] [address] [id number] [place] [address]- 5191 Mar, [facility] [place] [facility] [address] [id number] [place] [address]- 4521 Mar, [facility] [place] [facility] [address] [id number] [place] [address]- 0585 Feb, [facility] [place] [facility] [address] [id number] [place] [address]- 0679 Feb, [facility] [place] [facility] [address] [id number] [place] [address]- 3128 Feb, [facility] [place] [facility] [address] [id number] [place] [address]- 3215 Feb, [facility] [place] [facility] [address] [id number] [place] [address]- 0146 Feb, [facility] [place] [facility] [address] [id number] [place] [address]- 6160 Feb, [facility] [place] [facility] [address] [id number] [place] [address]- 2274 Feb, [facility] [place] [facility] [address] [id number] [place] [address]- 2786 Feb, [facility] [place] [facility] [address] [id number] [place] [address]- 3150 Feb, [facility] [place] [facility] [address] [id number] [place] [address]- 1684 Feb, [facility] [place] [facility] [address] [id number] [place] [address]- 7915 Feb, [facility] [place] [facility] [address] [id number] [place] [address]- 4336 Feb, [facility] [place] [facility] [address] [id number] [place] [address]- 2201 Feb, [facility] [place] [facility] [address] [id number] [place] [address]- 3425 Feb, [facility] [place] [facility] [address] [id number] [place] [address]- 3670 Feb, [facility] [place] [facility] [address] [id number] [place] [address]- 8022 Feb, [facility] [place] [facility] [address] [id number] [place] [address]- 4936 Jan, [facility] [place] [facility] [address] [id number] [place] [address]- 1003 Jan, [facility] [place] [facility] [address] [id number] [place] [address]- 5235 16 Jan, 2014 [facility] [place] [facility] [address] [id number] [place] [address]- 1685 16 Jan, 2014 [facility] [place] [facility] [address] [id number] [place] [address]- 0291 15 Jan, 2014 [facility] [place] [facility] [address] [id number] [place] [address]- 0582 Jan, [facility] [place] [facility] [address] [id number] [place] [address]- 4264 Dec, [facility] [place] [facility] [address] [id number] [place] [address]- 8957 Dec, [facility] [place] [facility] [address] [id number] [place] [address]- 4912 Dec, [facility] [place] [facility] [address] [id number] [place] [address]- 5959 Dec, [facility] [place] [facility] [address] [id number] [place] [address]- 4154 Dec, [facility] [place] [facility] [address] [id number] [place] [address]- 9231 Dec, [facility] [place] [facility] [address] [id number] [place] [address]- 9088 Dec, [facility] [place] [facility] [address] [id number] [place] [address]- 0780 Dec, [facility] [place] [facility] [address] [id number] [place] [address]- 0455 November, [facility] [place] [facility] [address] [id number] [place] [address]- 6961 November, [facility] [place] [facility] [address] [id number] [place] [address]- 5042 November, [facility] [place] [facility] [address] [id number] [place] [address]- 1475 November, [facility] [place] [facility] [address] [id number] [place] [address]- 3894 November, [facility] [place] [facility] [address] [id number] [place] [address]- 9917 November, [facility] [place] [facility] [address] [id number] [place] [address]- 0937 Oct, [facility] [place] [facility] [address] [id number] [place] [address]- 9158 Oct, [facility] [place] [facility] [address] [id number] [place] [address]- 0612 Oct, [facility] [place] [facility] [address] [id number] [place] [address]- 7835 Oct, [facility] [place] [facility] [address] [id number] [place] [address]- 1551 Sep, [facility] [place] [facility] [address] [id number] [place] [address]- 4639 Sep, [facility] [place] [facility] [address] [id number] [place] [address]- 2812 Sep, [facility] [place] [facility] [address] [id number] [place] [address]- 4245 Sep, [facility] [place] [facility] [address] [id number] [place] [address]- 8755 Sep, [facility] [place] [facility] [address] [id number] [place] [address]- 4945 Sep, [facility] [place] [facility] [address] [id number] [place] [address]- 2103 Aug, [facility] [place] [facility] [address] [id number] [place] [address]- 3610 Aug, [facility] [place] [facility] [address] [id number] [place] [address]- 4720 Aug, [facility] [place] [facility] [address] [id number] [place] [address]- 6603 13 Aug, 2013 [facility] [address] [id number] [place] [address]- 6776 Aug, [facility] [address] [id number] [place] [address]- 7056 10 Aug, 2013 [facility] [address] [id number] [place] [address]- 1577 Jul, [facility] [address] [id number] [place] [address]- 6573 Jul, [facility] [address] [id number] [place] [address]- 5658 Jul, [facility] [address] [id number] [place] [address]- 8497 Jul, [facility] [address] [id number] [place] [address]- 4816 Jul, [facility] [address] [id number] [place] [address]- 5684 Jul, [facility] [address] [id number] [place] [address]- 2669 Jul, [facility] [address] [id number] [place] [address]- 5526 Jul, [facility] [address] [id number] [place] [address]- 2542 Jul, [facility] [address] [id number] [place] [address]- 1419 Jul, [facility] [place] [facility] [address] [id number] [place] [address]- 7885 Jul, [facility] [place] [facility] [address] [id number] [place] [address]- 1508 Jul, [facility] [place] [facility] [address] [id number] [place] [address]- 7538 Jul, [facility] [place] [facility] [address] [id number] [place] [address]- 3153 Jul, [facility] [address] [id number] [place] [address]- 1653 Jul, [facility] [address] [id number] [place] [address]- 3920 Jun, [facility] [place] [facility] [address] [id number] [place] [address]- 7505 Jun, [facility] [address] [id number] [place] [address]- 8418 Jun, [facility] [address] [id number] [place] [address]- 2804 Jun, [facility] [address] [id number] [place] 7042 May, [facility] [address] [id number] [place] [address]- 3329 May, [facility] [address] [facility] [id number] [id number] May, [facility] [address] [id number] [place] [address]- 0137 May, [facility] [address] [id number] [place] [address]- 1989 May, [facility] [place] [facility] [address] [id number], [place] [address]- 4750 May, [facility] [place] [facility] [address] [id number], [place] [address] May, [facility] [place] [facility] [address] [id number] [place] [address] May, [facility] [place] [facility] [address] [id number], [place] [address] May, 2013 [facility] [address] [facility] [id number] [id number] May, [facility] [place] [facility] [address] [facility] [id number] [place] [address] May, [facility] [address] [facility] [id number][place] [id number] May, [facility] [place] [facility] [address] [facility] [id number], [place] [address] May, [facility] [address] [facility] [id number][place] [id number] May, [facility] [place] [facility] [address] [facility] [id number], [place] [address] May, IMMUNIZATIONS No Known Immunizations SOCIAL HISTORY Never Assessed REASON FOR VISIT right earache for the past 2 weeks. now her throat hurts. has nasal drainage down back of throat. [email or web address] PLAN OF CARE Activity Details Follow Up if not improving or with pcp for regular fu Reason: VITAL SIGNS Height 63 in 2018-04-18 Weight 185.2 lbs 2018-04-18 Temperature 98.7 degrees Fahrenheit 2018-04-18 Heart Rate 74 bpm 2018-04-18 Respiratory Rate 20 2018-04-18 BMI 32.80 kg/m2 2018-04-18 Blood pressure systolic 124 mmHg 2018-04-18 Blood pressure diastolic 76 mmHg 2018-04-18 MEDICATIONS Medication Instructions Dosage Frequency Start Date End Date Duration Status Aspirin EC 81 MG Orally Once a day 1 tablet 24h 30 Active Albuterol Sulfate (2.5 MG/3ML) 0.083% USE ONE AMPULE IN NEBULIZER EVERY 6 HOURS 25 Active Cholecalciferol 1000 UNIT Orally Once a day 1 capsule 24h Active Cetirizine HCl 10 MG Orally Once a day 1 tablet 24h Active Enbrel 50 MG/ML Subcutaneous once weekly on Thursday 1 ml Active Spiriva Respimat 2.5 MCG/ACT Inhalation Once a day 1 puff 24h Oct, 90 days Active Ranitidine HCl 150 MG Orally 2 times a day 1 tablet 12h 30 days Active Multi Adult Gummies - Active Trazodone HCl 50 MG Orally Once a day 2 tablets at bedtime 24h Aug, 90 Active Zoloft 50 mg Orally Once a day 1 tablet 24h 90 Active Augmentin 500-125 MG Orally 3 times a day 1 tablet 8h 07 Apr, 2018Apr 7 days Active Pravastatin Sodium 10 mg Orally Once a day 1 tablet 24h 90 days Active Probiotic - Active Vitamin C 500 mg Orally Once a day 2 tablets 24h 05 Feb, 2016 Active Symbicort 160-4.5 MCG/ACT Inhalation Twice a day 2 puffs 12h 90 Active Montelukast Sodium 10 mg Orally Once a day at HS 1 tablet in the evening Active Oxycodone-Acetaminophen 5-325 MG Orally 2 times a day 1 tablet 12h 15 Mar, 2018 28 days Active RESULTS No Results PROCEDURES Procedure Date Ordered Result Body Site [facility] VISIT ESTABLISHED PATIENT Apr 18, 2018 INSTRUCTIONS MEDICATIONS ADMINISTERED No Known Medications [...] 12/24/16 Surgical 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 Surgical History oral cancer 01/2018 Surgical History g tube placement Failed swallow study 01/2018 Surgical History loop placement 03/2018 Hospitalization History amputation transmetatarsal Hospitalization History hip replacement Hospitalization History CVA 12/2014 Hospitalization History Exacerbation COPD 10/23/15 Hospitalization History Diarrhea, leukocytosis--[facility] 01/08/16 Hospitalization History pseudomemranous colitis, sepsis--[facility] 04/21/2016 Hospitalization History C Diff--[facility] 05/10/2016 Hospitalization History sepsis, pneumonia, diarrhea--[facility] 06/11/16 Hospitalization History recurrent cdiff, pneumonia-[facility] 07/22/16 Hospitalization History sepsis,pneumonia- [facility]
--- OUTSIDE RECORDS SUMMARY | 2018-09-02 10:40 | XMS REPORT ---
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 891369428 Problem Chronic pain syndrome G89.4 Active 928537170 Problem Leg pain, left M79.605 Active 614807242 Problem Anxiety F41.9 Active 92844555 Problem Dysphagia, unspecified dysphagia R13.10 Active 65520794 Problem Depression, unspecified depression type F32.9 Active 78787574 Problem Iron deficiency anemia, unspecified iron deficiency anemia type D50.9 Active 33293115 Problem Anemia, unspecified type D64.9 Active 196570333 Problem History of oral cancer Z85.819 Active 464935346 Problem Seasonal allergic rhinitis due to pollen J30.1 Active 81126998 Problem 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 374286064 Problem History of cerebrovascular accident with current residual effects I69.90 Active 615882508 Problem Peripheral vascular disease, unspecified I73.9 Active 081390082 Problem Chronic obstructive pulmon disease w acute lower resp infct J44.0 Active 428419215 Problem Other chronic pain G89.29 Active 35673095 Problem Insomnia, unspecified G47.00 Active 406949929 Problem Primary insomnia F51.01 Active 5089967 Problem Rheumatoid arthritis M06.9 Active 86078220 Problem Atrial fibrillation I48.91 Active 36652452 Problem Osteoarthritis of foot M19.079 Active 051048283 Problem Hypertension I10 Active 71215790 Problem Tobacco abuse, 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 518168560 Problem Edema R60.9 Active 800813829 Problem Dysthymia F34.1 Active 24181482 Problem COPD (chronic obstructive pulmonary disease) J44.9 Active 33442606 ALLERGIES No Information ENCOUNTERS Encounter Location Date Diagnosis [facility] [id number] [place] [address] 01570- 4887 26 Mar, 2018 Rheumatoid arthritis M06.9 ; Other chronic pain G89.29 ; History of oral cancer Z85.819 and History of tachycardia Z87.898 [facility] [id number] [place] [address] 48535- 9429 14 Mar, 2018 Chronic pain syndrome G89.4 [facility] [id number] [place] [address] 63601- 0893 Feb, Chronic pain syndrome G89.4 [facility] [id number] [place] [address] 36714- 3375 Feb, Chronic pain syndrome G89.4 [facility] [id number] [place] [address] 84394- 3268 Jan, Chronic pain syndrome G89.4 [facility] [id number] [place] [address] 75493- 5038 Jan, [facility] [id number] [place] [address] 33498- 3787 Dec, Chronic pain syndrome G89.4 [facility] [id number] [place] [address] 55566- 5633 November, Chronic pain syndrome G89.4 [facility] [id number] [place] [address] 80288- 0925 November, [facility] [id number] [place] [address] 84716- 9601 Oct, Chronic pain syndrome G89.4 [facility] [id number] [place] [address] 11031- 7865 Oct, [facility] [id number] [place] [address] 11929- 4266 Oct, Chronic pain syndrome G89.4 [facility] [id number] [address] 2487 Oct, [facility] [id number] [place] [address] 998375- 1946 Oct, [facility] [id number] [place] [address] 94212- 6028 Sep, Left upper quadrant pain R10.12 ; Chronic pain syndrome G89.4 ; Left lower quadrant pain R10.32 ; Other chronic pain G89.29 ; Sacrococcygeal disorders, not elsewhere classified M53.3 and Seasonal allergic rhinitis due to pollen J30.1 [facility] [id number] [place] [address] 80999- 6011 Sep, Chronic pain syndrome G89.4 [facility] [id number] [place] [address] 31242- 5839 Sep, [facility] [id number] [place] [address] 45280- 8476 Aug, Chronic pain syndrome G89.4 [facility] [id number] [place] [address] 73906- 5726 Aug, [facility] [id number] [place] [address] 47953- 4890 Aug, Insomnia, unspecified G47.00 [facility] [id number] [place] [address] 27842- 7928 Jul, [facility] [id number] [place] [address] 59228- 9514 Jul, [facility] [id number] [place] [address] 68504- 7224 Jul, Chronic pain syndrome G89.4 [facility] [id number] [place] [address] 18298- 5741 Jun, Chronic pain syndrome G89.4 [facility] [id number] [place] [address] 25961- 5404 Jun, Chronic pain syndrome G89.4 [facility] [id number] [place] [address] 46385- 8620 May, [facility] [id number] [place] [address] 36319- 2594 May, Shortness of breath R06.02 ; Peripheral vascular disease, unspecified I73.9 ; Pain in right knee M25.561 ; Other chronic pain G89.29 ; Chest wall pain R07.89 ; Chronic pain syndrome G89.4 ; Primary insomnia F51.01 and Ear pain, left H92.02 [facility] [id number] [place] [address] 33469- 8785 May, Anxiety F41.9 [facility] [id number] [place] [address] 41457- 4911 Apr, Pneumonia due to infectious organism, unspecified laterality , unspecified part of lung J18.9 ; Hypoxia R09.02 ; Bradycardia R00.1 ; History of Clostridium difficile Z87.19 and Primary insomnia F51.01 [facility] [id number] [place] [address] 99141- 9722 Apr, Anxiety F41.9 [facility] [id number] [place] [address] 87240- 3237 Apr, [facility] [id number] [place] [address] 92657- 3530 Mar, Anxiety F41.9 [facility] [id number] [place] [address] 67128- 4068 Feb, [facility] [id number] [place] [address] 70113- 9001 Feb, [facility] [id number] [place] [address] 53504- 8993 Feb, Abnormal finding on urinalysis R82.90 [facility] [id number] [place] [address] 99761- 1419 Feb, [facility] [address] 21724- 4563 Feb, Shortness of breath R06.02 ; Tachycardia R00.0 ; Cough R05 ; Ill feeling R68.89 and Abnormal finding on urinalysis R82.90 [facility] [address] 94286- 1498 Feb, Anxiety F41.9 [facility] [id number] [place] [address] 41237 -0688 Feb, Sore throat J02.9 and Acute diffuse otitis externa of left ear H60.312 [facility] [address] 42804- 9090 Jan, [facility] [address] 79245- 0544 Jan, [facility] [address] [id number] Jan, [facility] [address] 67355- 5570 Jan, Depression, unspecified depression type F32.9 ; Chronic bronchitis, unspecified chronic bronchitis type J42 ; Chronic pain syndrome G89.4 and Anxiety F41.9 [facility] [id number] [place] [address] 29255- 1651 Jan, [facility] [id number] [place] [address] 14320- 5382 Jan, [facility] [address] 61028- 2762 Jan, [facility] [id number] [place] [address] [id number] Jan, Chronic pain syndrome G89.4 [facility] [address] [id number] Dec, History of right knee surgery Z98.890 [address] [address]- 9131 Dec, [facility] [id number] [place] [address] 70650- 8999 06 Dec, 2016 Chronic pain syndrome G89.4 [facility] [id number] [place] [address] 85008- 7639 November, Anxiety F41.9 [facility] [id number] [place] [address] 96252 -9048 November, Acute cystitis without hematuria N30.00 [facility] [id number] [place] [address] 43271 -2955 November, Fever, unspecified fever cause R50.9 and Acute cystitis without hematuria N30.00 [facility] [id number] [place] [address] 61434- 9282 November, Chronic pain syndrome G89.4 [facility] [id number] [place] [address] 37000- 6525 Oct, Anxiety F41.9 [facility] [id number] [place] [address] 54852- 8926 Oct, Chronic pain syndrome G89.4 [facility] [id number] [place] [address] 62611- 0446 Oct, Chronic pain syndrome G89.4 [facility] [address] [address]- 9011 Oct, [facility] [id number] [place] [address] 05834- 8791 Oct, Chronic pain syndrome G89.4 ; Pain in right knee M25.561 ; History of Clostridium difficile Z87.19 ; Iron deficiency anemia, unspecified iron deficiency anemia type D50.9 ; Peripheral vascular disease, unspecified I73.9 and Atrial fibrillation I48.91 [facility] [id number] [address] 1837 Oct, [facility] [id number] [place] [address] 35584- 7018 Oct, Chronic pain syndrome G89.4 [facility] [id number] [place] [address] 668709- 7536 Sep, [facility] [id number] [place] [address] 76776- 4138 Sep, Depression, unspecified depression type F32.9 ; Chronic bronchitis, unspecified chronic bronchitis type J42 ; Chronic pain syndrome G89.4 and Anxiety F41.9 [facility] [address] [id number] Sep, History of Clostridium difficile infection Z86.19 and History of stroke Z86.73 [facility] [id number] [place] [address] [id number] Sep, Anxiety F41.9 [facility] [id number] [place] [address] 55359- 6992 Sep, Chronic pain syndrome G89.4 [facility] [id number] [place] [address] 80465- 6111 Sep, [facility] [id number] [place] [address] [id number] Sep, [facility] [id number] [place] [address] 64418- 9459 Aug, Anxiety F41.9 [facility] [id number] [place] [address] 19816- 0021 Aug, Anxiety F41.9 [facility] [id number] [place] [address] 84030- 6867 16 Aug, 2016 [facility] [id number] [place] [address] [id number]- 7220 14 Aug, 2016 Acute knee pain, unspecified laterality M25.569 [facility] [id number] [place] [address] 81205- 3595 13 Aug, 2016 [facility] [id number] [place] [address] 47437- 8166 Aug, Chronic pain syndrome G89.4 [facility] [id number] [place] [address] 99054- 3058 Aug, [facility] [id number] [place] [address] 96136- 3589 Aug, [facility] [id number] [place] [address] 70579- 7855 Jul, [facility] [address] 26052- 9437 Jul, Anxiety F41.9 [facility] [id number] [place] [address] 02687- 1093 Jul, Clostridium difficile diarrhea A04.7 [employer] [facility] [address] [id number] Jul, Clostridium difficile diarrhea A04.7 ; Chronic pain syndrome G89.4 ; Chronic obstructive pulmon disease w acute lower resp infct J44.0 and Pain in right knee M25.561 [facility] [id number] [place] [address] [id number] Jul, [facility] [id number] [place] [address] 24830 -0935 Jul, Anxiety F41.9 and Chronic pain syndrome G89.4 [facility] [id number] [place] [address] 67761- 6580 Jun, Anxiety F41.9 [facility] [id number] [place] [address] 21551- 9463 Jun, Rheumatoid arthritis 714.0 [facility] [id number] [place] [address] 77704- 0960 Jun, Chronic pain syndrome G89.4 [facility] [id number] [address]- 3002 Jun, [facility] [id number] [place] [address] 06932- 8105 Jun, [facility] [id number] [place] [address] 39955- 7184 Jun, History of pneumonia Z87.01 and History of Clostridium difficile Z87.19 [facility] [id number] [place] [address] 86748- 6018 Jun, [facility] [id number] [place] [address] 11366- 2282 May, [facility] [id number] [place] [address] 85966- 2964 May, Anxiety F41.9 [facility] [id number] [place] [address] 48549- 7913 May, Chronic pain syndrome G89.4 [facility] [id number] [place] [address] 23990- 5540 May, Chronic bronchitis, unspecified chronic bronchitis type J42 [facility] [id number] [place] [address] 51214- 7916 May, [facility] [id number] [place] [address] 01758- 6751 May, C. difficile diarrhea A04.7 ; Peripheral edema R60.9 ; COPD (chronic obstructive pulmonary disease) J44.9 ; Rheumatoid arthritis, involving unspecified site, unspecified rheumatoid factor presence M06.9 ; Pain in right knee M25.561 ; Pain in left knee M25.562 and Other chronic pain G89.29 [facility] [id number] [place] [address] 14656- 8529 May, [facility] [id number] [place] [address] 35183- 7780 May, [facility] [id number] [place] [address] 95458- 5211 May, Anxiety F41.9 [facility] [id number] [place] [address] 71506- 2092 Apr, [facility] [id number] [place] [address] 45879- 7516 Apr, Chronic pain syndrome G89.4 [facility] [id number] [place] [address] 56943- 5669 Apr, Leg pain, left M79.605 [facility] [id number] [place] [address] 67583- 5297 Apr, [facility] [id number] [place] [address] 97820- 2885 Apr, [facility] [id number] [place] [address] 50074- 0855 Apr, [facility] [id number] [place] [address] 34201- 9907 28 Mar, 2016 Chronic pain syndrome G89.4 [facility] [id number] [place] [address] 17017- 6513 22 Mar, 2016 Acute frontal sinusitis, recurrence not specified J01.10 [facility] [address], [place] [address]- 1872 20 Mar, 2016 Iron deficiency anemia, unspecified iron deficiency anemia type D50.9 ; Rheumatoid arthritis with positive rheumatoid factor, involving unspecified site M05.9 and Depression, unspecified depression type F32.9 [facility] [address] [address]- 1931 13 Mar, 2016 Iron deficiency anemia, unspecified iron deficiency anemia type D50.9 ; Depression, unspecified depression type F32.9 and Rheumatoid arthritis with positive rheumatoid factor, involving unspecified site M05.9 [facility] [address] [place] [address]- 4790 06 Mar, 2016 [facility] [id number] [place] [address] 81817- 8339 Mar, [facility] [id number] [place] [address] 21978- 4169 Feb, Chronic pain syndrome G89.4 [facility] [id number] [place] [address] 24186- 9008 Feb, 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 ; Status post CVA Z86.73 ; Hemiplegia G81.90 and Anemia, unspecified type D64.9 [facility] [id number] [place] [address] 11957- 3164 Feb, [facility] [address] 01832- 1346 Feb, Anemia, unspecified type D64.9 [facility] [id number] [place] [address] 17167- 0157 Feb, [facility] [id number] [place] [address] 56165- 2282 Feb, Iron deficiency anemia, unspecified iron deficiency anemia type D50.9 [facility] [address] 58811- 0551 Feb, [facility] [id number] [place] [address] 53724- 6529 Feb, Chronic bronchitis, unspecified chronic bronchitis type J42 [facility] [id number] [place] [address] 86485- 8293 Feb, Iron deficiency anemia, unspecified iron deficiency anemia type D50.9 [facility] [id number] [place] [address] 03984- 8242 Feb, Chronic pain syndrome G89.4 [facility] [id number] [place] [address] 04811- 0447 Feb, Anemia, unspecified type D64.9 and Hypoxia R09.02 [facility] [id number] [place] [address] 41141- 5283 Feb, Anemia, unspecified type D64.9 [facility] [id number] [place] [address] 24970- 3167 Jan, [facility] [id number] [place] [address] 49365- 9299 Jan, Anemia, unspecified type D64.9 [facility] [id number] [place] [address] 46808- 2880 Jan, [facility] [id number] [place] [address] 39846- 8053 Jan, Anemia, unspecified type D64.9 [facility] [id number] [place] [address] 98917- 4004 Jan, Anemia, unspecified type D64.9 [facility] [id number] [place] [address] 50238- 2263 Jan, [facility] [id number] [place] [address] 34721- 8584 Jan, Anemia, unspecified type D64.9 [facility] [id number] [place] [address] 97054- 8728 Jan, [facility] [address], [place] [address]- 4767 Jan, [facility] [address], [place] [address]- 4077 Jan, Chronic pain syndrome G89.4 [facility] [id number] [place] [address] 73347- 6673 Jan, Anemia, unspecified type D64.9 [facility] [address], [place] [address]- 7410 Jan, Dysthymia F34.1 ; Cervicalgia M54.2 ; Fatigue, unspecified type R53.83 and Depression, unspecified depression type F32.9 [facility] [id number] [address]- 5960 29 Dec, 2015 [facility] [id number] [place] [address] 74656- 5121 14 Dec, 2015 Anxiety F41.9 [facility] [id number] [place] [address] 74760- 3950 08 Dec, 2015 Chronic pain syndrome G89.4 [facility] [address] 09084- 8391 November, [facility] [id number] [place] [address] 29932- 9650 November, Edema R60.9 and Dizziness R42 [facility] [id number] [place] [address] 93371- 2316 November, [facility] [address] 96668- 4653 November, [facility] [id number] [place] [address] 69142- 0067 November, COPD (chronic obstructive pulmonary disease) J44.9 ; Increased tracheal secretions J39.8 and Edema R60.9 [facility] [id number] [place] [address] 93439 -3316 Oct, [facility] [id number] [place] [address] 52300 -1258 28 Oct, 2015 Shortness of breath R06.02 and Edema R60.9 [facility] [id number] [place] [address] 01925- 3294 20 Oct, 2015 Chronic bronchitis, unspecified chronic bronchitis type J42 ; Peripheral vascular disease, unspecified I73.9 ; Rheumatoid arthritis M06.9 and Atrial fibrillation I48.91 [facility] [id number] [place] [address] 26388- 0616 Oct, [facility] [id number] [place] [address] 96396- 3238 Oct, [facility] [id number] [address] Oct, [facility] [id number] [place] [address] [phone] Oct, [facility] [id number] [place] [phone] Oct, COPD exacerbation J44.1 [facility] [id number] [place] [address] [phone] Sep, [facility] [id number] [place] [address] [phone] Sep, [facility] [id number] [place] [address] [phone] Sep, [facility] [id number] [place] [address] [phone] Aug, [facility] [id number] [place] [address] [phone] Aug, 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 and PVD (peripheral vascular disease ) I73.9 [facility] [id number] [place] [address] [phone] Aug, Bronchitis J40 ; COPD (chronic obstructive pulmonary disease ) J44.9 and Dysthymia F34.1 [facility] [id number] [address] Aug, [facility] [facility] [id number] [address] Jul, [facility] [id number] [place] [address] 86775- 1305 Jul, [facility] [address], [place] [address] 5786 Jul, [facility] [id number] [place] [address] 59197- 9523 Jun, [facility] [address], [place] [address] 8931 Jun, [facility] [id number] [place] [address] 88804- 7035 Jun, Peripheral vascular disease I73.9 [facility] [id number] [place] [address] 821001- 6916 Jun, [facility] [id number] [place] [address] 263218- 9301 Jun, [facility] [id number] [place] [address] 410784- 7618 Jun, Leg pain, left M79.605 ; Dysphagia, unspecified dysphagia R13.10 ; Insomnia, unspecified type G47.00 ; PVD (peripheral vascular disease) I73.9 and 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 [facility] [id number] [place] [address] 50212- 5482 May, [facility] [id number] [place] [address] 96162- 6813 May, [facility] [id number] [place] [address] 30750- 6388 May, [facility] [id number] [place] [address] 03536- 2879 May, [facility] [id number] [place] [address] 57429- 2193 May, [facility] [id number] [place] [address] 61380- 4486 Apr, [facility] [id number] [place] [address] 920277- 4680 Apr, [facility] [id number] [place] [address] 418756- 8266 Mar, [facility] [id number], [place] [address] 1200 Mar, [facility] [address], [place] [address]- 3693 Feb, [facility] [id number] [place] [address] 94410- 5731 Feb, Nicotine abuse 305.1 ; Arthralgia 719.40 and 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 [facility] [id number] [place] [address] 84160- 9507 Feb, [facility] [id number] [place] [address] 15000- 0352 Jan, [facility] [id number] [place] [address] 72926- 8597 Jan, [facility] [id number] [place] [address] 24466- 8293 Jan, [facility] [id number] [place] [address] 40984- 5131 Jan, [facility] [id number] [place] [address] 85766- 9310 Jan, 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 ; Rheumatoid arthritis 714.0 ; Hypertension 401.9 ; GERD (gastroesophageal reflux disease) 530.81 ; Nicotine addiction 305.1 and Leukocytosis 288.60 [facility] [address], [place] [address]- 5243 Jan, [facility] [address], [place] [address]- 2710 Jan, [facility] [address], [place] [address]- 7896 Jan, [facility] [address], [place] [address]- 1624 Jan, [facility] [address], [place] [address]- 4950 Jan, [facility] [address], [place] [address]- 8073 Dec, [facility] [id number] [place] [address] 828334- 2672 Dec, [facility] [id number] [place] [address] 66941- 8947 Dec, [facility] [id number] [place] [address] 69032- 4494 Dec, [facility] [id number] [place] [address] 39835- 0900 November, [facility] [id number] [place] [address] 75279- 8791 November, [facility] [id number] [place] [address] 79927- 9036 November, Shortness of breath 786.05 [facility] [id number] [place] [address] 88029- 4679 November, Rheumatoid arthritis 714.0 [facility] [id number] [place] [address] 25181- 5132 November, 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 [facility] [id number] [place] [address] 60726- 9701 November, Neuropathy 355.9 ; Insomnia 780.52 ; Dysthymia 300.4 ; Shortness of breath 786.05 ; Rheumatoid arthritis 714.0 and Nausea 787.02 [facility] [address], [place] [address]- 2131 November, [facility] [id number] [place] [address] 705890- 3197 November, [facility] [id number] [id number] 4607 Oct, [facility] [id number] [place] [address] 246015- 6977 Oct, [facility] [place] [facility] [address] [id number] [place] [address]- 7278 14 Oct, 2014 [facility] [place] [facility] [address] [id number] [place] [address]- 1219 Oct, [facility] [place] [facility] [address] [id number] [place] [address]- 3622 Sep, [facility] [place] [facility] [address] [id number] [place] [address]- 4129 Sep, [facility] [place] [facility] [address] [id number] [place] [address]- 1366 Sep, [facility] [place] [facility] [address] [id number] [place] [address]- 6385 Sep, [facility] [place] [facility] [address] [id number] [place] [address]- 8355 Sep, [facility] [place] [facility] [address] [id number] [place] [address]- 2899 Sep, [facility] [place] [facility] [address] [id number] [place] [address]- 7979 Sep, [facility] [place] [facility] [address] [id number] [place] [address]- 4301 Sep, [facility] [place] [facility] [address] [id number] [place] [address]- 9560 Aug, [facility] [place] [facility] [address] [id number] [place] [address]- 6315 Aug, [facility] [place] [facility] [address] [id number] [place] [address]- 9631 Aug, [facility] [place] [facility] [address] [id number] [place] [address]- 6432 Aug, [facility] [place] [facility] [address] [facility] [id number] [place] [address]- 1580 Aug, [facility] [place] [facility] [address] [id number] [place] [address]- 3459 Aug, [facility] [place] [facility] [address] [id number] [place] [address]- 0374 Jul, [facility] [place] [facility] [address] [id number] [place] [address]- 3333 Jul, [facility] [place] [facility] [address] [id number] [place] [address]- 2510 Jul, [facility] [place] [facility] [address] [id number] [place] [address]- 1095 Jul, [facility] [place] [facility] [address] [id number] [place] [address]- 4868 Jul, [facility] [place] [facility] [address] [id number] [place] [address]- 7585 Jul, [facility] [place] [facility] [address] [id number] [place] [address]- 4655 Jul, [facility] [place] [facility] [address] [id number] [place] [address]- 5804 Jul, [facility] [place] [facility] [address] [id number] [place] [address]- 1747 Jul, [facility] [place] [facility] [address] [id number] [place] [address]- 6911 Jul, [facility] [place] [facility] [address] [id number] [place] [address]- 2254 Jun, [facility] [place] [facility] [address] [id number] [place] [address]- 1676 Jun, [facility] [place] [facility] [address] [id number] [place] [address]- 8970 Jun, [facility] [place] [facility] [address] [id number] [place] [address]- 5313 Jun, [facility] [place] [facility] [address] [id number] [place] [address]- 9850 Jun, [facility] [place] [facility] [address] [id number] [place] [address]- 6729 Jun, [facility] [place] [facility] [address] [id number] [place] [address]- 8372 Jun, [facility] [place] [facility] [address] [id number] [place] [address]- 8121 Jun, [facility] [place] [facility] [address] [id number] [place] [address]- 2445 Jun, [facility] [place] [facility] [address] [id number] [place] [address]- 3488 Jun, [facility] [place] [facility] [address] [id number] [place] [address]- 0627 Jun, [facility] [place] [facility] [address] [id number] [place] [address]- 7969 Jun, [facility] [place] [facility] [address] [id number] [place] [address]- 9384 Jun, [facility] [place] [facility] [address] [id number] [place] [address]- 6372 Jun, [facility] [place] [facility] [address] [id number] [place] [address]- 7767 Jun, [facility] [place] [facility] [address] [id number] [place] [address]- 8834 Jun, [facility] [place] [facility] [address] [id number] [place] [address]- 4614 May, [facility] [place] [facility] [address] [id number] [place] [address]- 9997 May, [facility] [place] [facility] [address] [id number] [place] [address]- 2301 May, [facility] [place] [facility] [address] [id number] [place] [address]- 9968 May, [facility] [place] [facility] [address] [id number], [place] [address]- 3756 May, [facility] [place] [facility] [address] [id number] [place] [address]- 9477 May, [facility] [place] [facility] [address] [id number] [place] [address]- 5464 May, [facility] [place] [facility] [address] [id number] [place] [address]- 1289 May, [facility] [place] [facility] [address] [id number] [place] [address]- 7751 May, [facility] [place] [facility] [address] [id number] [place] [address]- 3419 Apr, [facility] [place] [facility] [address] [id number] [place] [address]- 1052 Apr, [facility] [place] [facility] [address] [id number], [place] [address]- 0466 Apr, [facility] [place] [facility] [address] [id number], [place] [address]- 9483 Apr, [facility] [place] [facility] [address] [id number], [place] [address]- 4896 Apr, [facility] [place] [facility] [address] [id number], [place] [address]- 8047 Apr, [facility] [place] [facility] [address] [id number], [place] [address]- 0653 Apr, [facility] [place] [facility] [address] [id number], [place] [address]- 6820 Apr, [facility] [place] [facility] [address] [id number], [place] [address]- 0437 Apr, [facility] [place] [facility] [address] [id number], [place] [address]- 2787 Apr, [facility] [place] [facility] [address] [id number] [place] [address]- 2073 Apr, [facility] [place] [facility] [address] [id number] [place] [address]- 1627 Apr, [facility] [place] [facility] [address] [id number] [place] [address]- 6806 Mar, 2013 [facility] [place] [facility] [address] [id number] [place] [address]- 4076 Mar, 2013 [facility] [place] [facility] [address] [id number] [place] [address]- 5346 Mar, 2013 [facility] [place] [facility] [address] [id number] [place] [address]- 3865 Mar, 2013 [facility] [place] [facility] [address] [id number] [place] [address]- 0018 Mar, 2013 [facility] [place] [facility] [address] [id number] [place] [address]- 7300 Mar, 2013 [facility] [place] [facility] [address] [id number] [place] [address]- 3868 Mar, 2013 [facility] [place] [facility] [address] [id number] [place] [address]- 2120 Mar, [facility] [place] [facility] [address] [id number] [place] [address]- 0727 Mar, [facility] [place] [facility] [address] [id number] [place] [address]- 6929 Mar, [facility] [place] [facility] [address] [id number] [place] [address]- 5450 Feb, [facility] [place] [facility] [address] [id number] [place] [address]- 2543 Feb, [facility] [place] [facility] [address] [id number] [place] [address]- 3124 Feb, [facility] [place] [facility] [address] [id number] [place] [address]- 7226 Feb, [facility] [place] [facility] [address] [id number] [place] [address]- 6291 Feb, [facility] [place] [facility] [address] [id number] [place] [address]- 1779 Feb, [facility] [place] [facility] [address] [id number] [place] [address]- 0166 Feb, [facility] [place] [facility] [address] [id number] [place] [address]- 0137 Feb, [facility] [place] [facility] [address] [id number] [place] [address]- 8697 Feb, [facility] [place] [facility] [address] [id number] [place] [address]- 3440 Feb, [facility] [place] [facility] [address] [id number] [place] [address]- 6899 Feb, [facility] [place] [facility] [address] [id number] [place] [address]- 0360 Feb, [facility] [place] [facility] [address] [id number] [place] [address]- 1385 Feb, [facility] [place] [facility] [address] [id number] [place] [address]- 5801 Feb, [facility] [place] [facility] [address] [id number] [place] [address]- 9291 Feb, [facility] [place] [facility] [address] [id number] [place] [address]- 2402 Feb, [facility] [place] [facility] [address] [id number] [place] [address]- 7764 Jan, [facility] [place] [facility] [address] [id number] [place] [address]- 7955 Jan, [facility] [place] [facility] [address] [id number] [place] [address]- 4716 Jan, [facility] [place] [facility] [address] [id number] [place] [address]- 1394 Jan, [facility] [place] [facility] [address] [id number] [place] [address]- 4856 15 Jan, 2014 [facility] [place] [facility] [address] [id number] [place] [address]- 8053 15 Jan, 2014 [facility] [place] [facility] [address] [id number] [place] [address]- 5478 Dec, [facility] [place] [facility] [address] [id number] [place] [address]- 8954 Dec, [facility] [place] [facility] [address] [id number] [place] [address]- 4581 Dec, [facility] [place] [facility] [address] [id number] [place] [address]- 4622 Dec, [facility] [place] [facility] [address] [id number] [place] [address]- 1746 Dec, [facility] [place] [facility] [address] [id number] [place] [address]- 1691 Dec, [facility] [place] [facility] [address] [id number] [place] [address]- 8137 Dec, [facility] [place] [facility] [address] [id number] [place] [address]- 6859 Dec, [facility] [place] [facility] [address] [id number] [place] [address]- 9774 November, [facility] [place] [facility] [address] [id number] [place] [address]- 7561 November, [facility] [place] [facility] [address] [id number] [place] [address]- 9695 November, [facility] [place] [facility] [address] [id number] [place] [address]- 0641 November, [facility] [place] [facility] [address] [id number] [place] [address]- 4847 November, [facility] [place] [facility] [address] [id number] [place] [address]- 3471 November, [facility] [place] [facility] [address] [id number] [place] [address]- 6000 Oct, [facility] [place] [facility] [address] [id number] [place] [address]- 4835 Oct, [facility] [place] [facility] [address] [id number] [place] [address]- 1931 Oct, [facility] [place] [facility] [address] [id number] [place] [address]- 1778 Oct, [facility] [place] [facility] [address] [id number] [place] [address]- 7574 Sep, [facility] [place] [facility] [address] [id number] [place] [address]- 2292 Sep, [facility] [place] [facility] [address] [id number] [place] [address]- 4610 Sep, [facility] [place] [facility] [address] [id number] [place] [address]- 0696 Sep, [facility] [place] [facility] [address] [id number] [place] [address]- 4096 Sep, [facility] [place] [facility] [address] [id number] [place] [address]- 9033 Sep, [facility] [place] [facility] [address] [facility] [id number] [place] [address]- 1141 Aug, [facility] [place] [facility] [address] [id number] [place] [address]- 0570 Aug, [facility] [place] [facility] [address] [id number] [place] [address]- 4995 Aug, [facility] [place] [facility] [address] [id number] [place] [address]- 6038 Aug, [facility] [place] [facility] [address] [id number] [place] [address]- 9924 Aug, [facility] [place] [facility] [address] [id number], [place] [address]- 9754 Aug, [facility] [address] [id number] [place] [address]- 0594 Jul, [facility] [place] [facility] [address] [id number] [place] [address]- 0049 Jul, [facility] [place] [facility] [address] [id number] [place] [address]- 9771 Jul, [facility] [place] [facility] [address] [id number] [place] [address]- 4849 Jul, [facility] [place] [facility] [address] [id number] [place] [address]- 7560 Jul, [facility] [place] [facility] [address] [id number] [place] [address]- 4568 Jul, [facility] [place] [facility] [address] [id number] [place] [address]- 6325 Jul, [facility] [place] [facility] [address] [id number] [place] [address]- 2033 Jul, [facility] [place] [facility] [address] [id number] [place] [address]- 7843 Jul, [facility] [place] [facility] [address] [id number] [place] [address]- 0027 Jul, [facility] [place] [facility] [address] [id number] [place] [address]- 2633 Jul, [facility] [place] [facility] [address] [id number] [place] [address]- 9403 Jul, [facility] [place] [facility] [address] [id number] [place] [address]- 2921 Jul, [facility] [place] [facility] [address] [id number] [place] [address]- 9724 Jul, [facility] [place] [facility] [address] [id number] [place] [address] Jul, [facility] [place] [facility] [address] [id number] [place] 18 Jun, 2013 [facility] [place] [facility] [address] [id number] [place] [address] 18 Jun, 2013 [facility] [place] [facility] [address] [id number] [place] [address] Jun, [facility] [place] [facility] [address] [id number] [place] [address] Jun, [facility] [place] [facility] [address] [id number] [place] [address] May, [facility] [place] [facility] [address] [id number] [place] [address] May, [facility] [address] [id number] [id number] May, [facility] [place] [facility] [address] [id number] [place] [address] May, [facility] [place] [facility] [address] [id number] [place] [address] May, [facility] [place] [facility] [address] [id number] [place] [address] May, [facility] [place] [facility] [address] [id number], [place] [address] May, [facility] [place] [facility] [address] [id number], [place] [address] May, [facility] [place] [facility] [address] [id number], [place] [address] 16 May, 2013 [facility] [address] [id number][place] [id number] May, [facility] [place] [facility] [address] [id number] [place] [address] 13 May, 2013 [facility] [address] [id number][place] [id number] May, [facility] [place] [facility] [address] [facility] [id number] [place] [address] May, [facility] [address] [facility] [id number] [place] [id number] May, [facility] [address] [id number] [place] [address] May, IMMUNIZATIONS No Known Immunizations SOCIAL HISTORY Never Assessed REASON FOR VISIT Controlled Med Refill 04/02/18 PLAN OF CARE VITAL SIGNS MEDICATIONS Medication [...] leukocytosis--[facility] 01/08/16 Hospitalization History pseudomemranous colitis, sepsis--[facility] 04/21/2016 Hospitalization History C Diff--[facility] 05/10/2016 Hospitalization History sepsis, pneumonia, diarrhea--[facility] 06/11/16 Hospitalization History recurrent cdiff, pneumonia-[facility] 07/22/16 Hospitalization History sepsis,pneumonia- [facility]
--- OUTSIDE RECORDS SUMMARY | 2018-09-02 10:40 | XMS REPORT ---
Author Author DIRK BRAND Organization [facility] Address [address] [place] [address] Care Team Providers Care Fitter/Welder Name Role Phone DIRK BRAND Unavailable PROBLEMS Type Condition ICD9-CM Code CRH69-KZ Code Onset Dates Condition Status SNOMED Code Problem Hx of Clostridium difficile infection Z86.19 Active 726884689 Problem History of arthroplasty of right knee Z96.651 Active 142058215 Problem Dysphagia, unspecified dysphagia R13.10 Active 09877551 Problem Chronic pain syndrome G89.4 Active 649056680 Problem 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 621140806 Problem Anxiety F41.9 Active 69030622 Problem Leg pain, left M79.605 Active 688460344 Problem Depression, unspecified depression type F32.9 Active 88423892 Problem Iron deficiency anemia, unspecified iron deficiency anemia type D50.9 Active 02815019 Problem Anemia, unspecified type D64.9 Active 476098798 Problem Seasonal allergic rhinitis due to pollen J30.1 Active 79775834 Problem Insomnia, unspecified G47.00 Active 681829868 Problem 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 431723754 Problem History of cerebrovascular accident with current residual effects I69.90 Active 742024757 Problem Peripheral vascular disease, unspecified I73.9 Active 551607502 Problem Rheumatoid arthritis, involving unspecified site, unspecified rheumatoid factor presence M06.9 Active 22603498 Problem Other chronic pain G89.29 Active 45050904 Problem Primary insomnia F51.01 Active 1409072 Problem Chronic obstructive pulmon disease w acute lower resp infct J44.0 Active 162084710 Problem Atrial fibrillation I48.91 Active 60071114 Problem Dysthymia F34.1 Active 07856270 Problem Osteoarthritis of foot M19.079 Active 385337844 Problem Rheumatoid arthritis M06.9 Active 71791575 Problem Tobacco abuse, 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4 [facility] [id number] [place] [address] 70118- 5177 Feb, Chronic pain syndrome G89.4 [facility] [id number] [place] [address] 76798- 9530 Jan, Chronic pain syndrome G89.4 [facility] [id number] [place] [address] 11212- 4118 Jan, [facility] [id number] [place] [address] 12622- 6667 Dec, Chronic pain syndrome G89.4 [facility] [id number] [place] [address] 06251- 3112 November, Chronic pain syndrome G89.4 [facility] [id number] [place] [address] 10548- 4326 November, [facility] [id number] [place] [address] 64777- 8423 Oct, Chronic pain syndrome G89.4 [facility] [id number] [place] [address] 50515- 1257 16 Oct, 2017 [facility] [id number] [place] [address] 74120- 1668 Oct, Chronic pain syndrome G89.4 [facility] [id number] [place] [address] 14890- 8167 Oct, [facility] [address] [place] [address] 19084- 6160 Oct, [facility] [id number] [place] [address] 214684- 9859 Sep, Left upper quadrant pain R10.12 ; Chronic pain syndrome G89.4 ; Left lower quadrant pain R10.32 ; Other chronic pain G89.29 ; Sacrococcygeal disorders, not elsewhere classified M53.3 and Seasonal allergic rhinitis due to pollen J30.1 [facility] [id number] [place] [address] 93161- 3255 Sep, Chronic pain syndrome G89.4 [facility] [id number] [place] [address] 18186- 1080 Sep, [facility] [id number] [place] [address] 25482- 2069 Aug, Chronic pain syndrome G89.4 [facility] [id number] [place] [address] 39502- 9303 Aug, [facility] [id number] [place] [address] 90229- 5765 Aug, Insomnia, unspecified G47.00 [facility] [id number] [place] [address] 77788- 6264 Jul, [facility] [id number] [place] [address] 03781- 3328 Jul, [facility] [address] [place] [address] 90977- 1962 Jul, Chronic pain syndrome G89.4 [facility] [id number] [place] [address] 801761- 2106 Jun, Chronic pain syndrome G89.4 [facility] [address] 4[address] Jun, Chronic pain syndrome G89.4 [facility] [address] [address]- 9283 May, [facility] [id number] [place] [address] 86501- 8309 May, Shortness of breath R06.02 ; Peripheral vascular disease, unspecified I73.9 ; Pain in right knee M25.561 ; Other chronic pain G89.29 ; Chest wall pain R07.89 ; Chronic pain syndrome G89.4 ; Primary insomnia F51.01 and Ear pain, left H92.02 [facility] [id number] [place] [address] 04603- 8370 May, Anxiety F41.9 [facility] [id number] [place] [address] 03858- 9133 Apr, Pneumonia due to infectious organism, unspecified laterality , unspecified part of lung J18.9 ; Hypoxia R09.02 ; Bradycardia R00.1 ; History of Clostridium difficile Z87.19 and Primary insomnia F51.01 [facility] [id number] [place] [address] 47472- 7701 Apr, Anxiety F41.9 [facility] [id number] [place] [address] 92548- 4394 Apr, [facility] [id number] [place] [address] 29683- 7400 Mar, Anxiety F41.9 [facility] [id number] [place] [address] 67420- 8424 Feb, [facility] [address] [place] [address] 93708- 6906 Feb, [facility] [id number] [place] [address] 13212- 6871 Feb, Abnormal finding on urinalysis R82.90 [facility] [id number] [place] [address] 12498- 0586 Feb, [facility] [id number] [place] [address] 38377- 8740 Feb, Shortness of breath R06.02 ; Tachycardia R00.0 ; Cough R05 ; Ill feeling R68.89 and Abnormal finding on urinalysis R82.90 [facility] [id number] [place] [address] 84722- 0460 Feb, Anxiety F41.9 [facility] [id number] [place] [address] 95804 -2277 Feb, Sore throat J02.9 and Acute diffuse otitis externa of left ear H60.312 [facility] [address] 50714- 0013 Jan, [facility] [id number] [place] [address] 91276- 7759 Jan, [facility] [address] [id number] Jan, [facility] [id number] [place] [address] 42497- 6185 Jan, Depression, unspecified depression type F32.9 ; Chronic bronchitis, unspecified chronic bronchitis type J42 ; Chronic pain syndrome G89.4 and Anxiety F41.9 [facility] [id number] [place] [address] 30176- 0386 Jan, [facility] [id number] [place] [address] 00697- 1397 Jan, [facility] [id number] [place] [address] 65421- 9483 Jan, [facility] [address] [id number] Jan, Chronic pain syndrome G89.4 [facility] [address] [id number] Dec, History of right knee surgery Z98.890 [facility] [id number] [place] [address] 76510- 5312 Dec, [facility] [address] [address]- 2334 Dec, Chronic pain syndrome G89.4 [facility] [address] [place] [address] 87914- 8822 November, Anxiety F41.9 [facility] [id number] [place] [address] 86649 -8983 November, Acute cystitis without hematuria N30.00 [facility] [id number] [place] [address] 53256 -8615 November, Fever, unspecified fever cause R50.9 and Acute cystitis without hematuria N30.00 [facility] [id number] [place] [address] 66858- 1560 November, Chronic pain syndrome G89.4 [facility] [id number] [place] [address] 40835- 8290 Oct, Anxiety F41.9 [facility] [id number] [place] [address] 87896- 7192 Oct, Chronic pain syndrome G89.4 [facility] [address] [place] [address] 48103- 3922 Oct, Chronic pain syndrome G89.4 [facility] [address] [address]- 3390 Oct, [facility] [id number] [place] [address] 11338- 9641 Oct, Chronic pain syndrome G89.4 ; Pain in right knee M25.561 ; History of Clostridium difficile Z87.19 ; Iron deficiency anemia, unspecified iron deficiency anemia type D50.9 ; Peripheral vascular disease, unspecified I73.9 and Atrial fibrillation I48.91 [facility] [address] [address]- 5956 Oct, [facility] [address] [address]- 7122 Oct, Chronic pain syndrome G89.4 [facility] [address] [place] [address] 79603- 8631 Sep, [facility] [address] [place] [address] 85113- 8688 Sep, Depression, unspecified depression type F32.9 ; Chronic bronchitis, unspecified chronic bronchitis type J42 ; Chronic pain syndrome G89.4 and Anxiety F41.9 [facility] [address] [id number] Sep, History of Clostridium difficile infection Z86.19 and History of stroke Z86.73 [facility] [id number] [place] [address] [id number] Sep, Anxiety F41.9 [facility] [address] [place] [address] 71865- 2719 Sep, Chronic pain syndrome G89.4 [facility] [address] [address]- 7485 Sep, [facility] [id number] [place] [address] [id number] Sep, [facility] [address] [place] [address] 39199- 9756 Aug, Anxiety F41.9 [facility] [address] [place] [address] 44128- 3401 Aug, Anxiety F41.9 [facility] [address] [address]- 3229 16 Aug, 2016 [facility] [address] [place] [address] 11394- 2475 14 Aug, 2016 Acute knee pain, unspecified laterality M25.569 [facility] [address], [place] [address]- 8830 13 Aug, 2016 [facility] [id number] [address]- 8656 Aug, Chronic pain syndrome G89.4 [facility] [address] [place] [address] 84038- 8685 Aug, [facility] [address] [place] [address] 549326- 2972 Aug, [facility] [address] [place] [address] 73627- 8860 Jul, [facility] [address] [place] [address] 01535- 7620 Jul, Anxiety F41.9 [facility] [id number] [place] [address] 80991- 8468 Jul, Clostridium difficile diarrhea A04.7 [facility] [address] [id number] Jul, Clostridium difficile diarrhea A04.7 ; Chronic pain syndrome G89.4 ; Chronic obstructive pulmon disease w acute lower resp infct J44.0 and Pain in right knee M25.561 [facility] [id number] [place] [address] [id number] Jul, [facility] [address] [place] [address] 79683 -9015 Jul, Anxiety F41.9 and Chronic pain syndrome G89.4 [facility] [address] [place] [address] 88470- 0083 Jun, Anxiety F41.9 [facility] [address] [place] [address] 82869- 5010 Jun, Rheumatoid arthritis 714.0 [facility] [id number] [place] [address] 28950- 1503 Jun, Chronic pain syndrome G89.4 [facility] [address] [place] [address] 15995- 8200 Jun, [facility] [id number] [address]- 1535 13 Jun, 2016 [facility] [address] [place] [address] 42111- 1840 12 Jun, 2016 History of pneumonia Z87.01 and History of Clostridium difficile Z87.19 [facility] [address] [place] [address] 52684- 3717 06 Jun, 2016 [facility] [id number] [place] [address] 51887- 4202 May, [facility] [id number] [place] [address] 90252- 1036 May, Anxiety F41.9 [facility] [id number] [place] [address] 52257- 6690 May, Chronic pain syndrome G89.4 [facility] [id number] [place] [address] 45304- 8377 May, Chronic bronchitis, unspecified chronic bronchitis type J42 [facility] [id number] [place] [address] 04420- 2864 May, [facility] [id number] [place] [address] 37671- 2158 May, C. difficile diarrhea A04.7 ; Peripheral edema R60.9 ; COPD (chronic obstructive pulmonary disease) J44.9 ; Rheumatoid arthritis, involving unspecified site, unspecified rheumatoid factor presence M06.9 ; Pain in right knee M25.561 ; Pain in left knee M25.562 and Other chronic pain G89.29 [facility] [address] [address]- 5053 May, [facility] [id number] [place] [address] 83014- 0255 May, [facility] [address] [place] [address] 42914- 8648 May, Anxiety F41.9 [facility] [id number] [place] [address] 44541- 3917 Apr, [facility] [address] [address]- 7970 Apr, Chronic pain syndrome G89.4 [facility] [address], [place] [address]- 9710 Apr, Leg pain, left M79.605 [facility] [id number] [place] [address] 14493- 1695 Apr, [facility] [address] [place] [address] 01020- 6715 Apr, [facility] [id number] [place] [address] 61978- 0847 Apr, [facility] [address] [place] [address] 04644- 8916 28 Mar, 2016 Chronic pain syndrome G89.4 [facility] [address] [address]- 0225 Mar, Acute frontal sinusitis, recurrence not specified J01.10 [facility] [address], [place] [address]- 5651 20 Mar, 2016 Iron deficiency anemia, unspecified iron deficiency anemia type D50.9 ; Rheumatoid arthritis with positive rheumatoid factor, involving unspecified site M05.9 and Depression, unspecified depression type F32.9 [facility] [address] [address]- 7406 13 Mar, 2016 Iron deficiency anemia, unspecified iron deficiency anemia type D50.9 ; Depression, unspecified depression type F32.9 and Rheumatoid arthritis with positive rheumatoid factor, involving unspecified site M05.9 [facility] [address] [address]- 7322 Mar, [facility] [address], [place] [address]- 9971 Mar, [facility] [address] [place] [address] 38559- 2723 Feb, Chronic pain syndrome G89.4 [facility] [id number] [place] [address] 49629- 7267 30 Feb, 2016 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 ; Status post CVA Z86.73 ; Hemiplegia G81.90 and Anemia, unspecified type D64.9 [facility] [id number] [place] [address] 03295- 8667 Feb, [facility] [id number] [place] [address] 65784- 4457 Feb, Anemia, unspecified type D64.9 [facility] [id number] [place] [address] 25659- 5943 Feb, [facility] [id number] [place] [address] 57217- 9726 Feb, Iron deficiency anemia, unspecified iron deficiency anemia type D50.9 [facility] [id number] [place] [address] 79399- 1252 Feb, [facility] [id number] [place] [address] 94870- 0766 Feb, Chronic bronchitis, unspecified chronic bronchitis type J42 [facility] [address] [place] [address] 38700- 0316 Feb, Iron deficiency anemia, unspecified iron deficiency anemia type D50.9 [facility] [id number] [place] [address] 00649- 2130 Feb, Chronic pain syndrome G89.4 [facility] [id number] [place] [address] 42486- 4231 Feb, Anemia, unspecified type D64.9 and Hypoxia R09.02 [facility] [address] [place] [address] 81694- 8715 Feb, Anemia, unspecified type D64.9 [facility] [address] [address]- 4642 Jan, [facility] [address] [place] [address] 05667- 3249 Jan, Anemia, unspecified type D64.9 [facility] [address] [address]- 0621 Jan, [facility] [id number] [place] [address] 80057- 0761 Jan, Anemia, unspecified type D64.9 [facility] [address] [address]- 4590 Jan, Anemia, unspecified type D64.9 [facility] [address], [place] [address]- 6533 Jan, [facility] [id number] [place] [address] 20883- 0010 Jan, Anemia, unspecified type D64.9 [facility] [address] [address]- 1095 Jan, [facility] [address] [place] [address] 25149- 4786 Jan, [facility] [address], [place] [address]- 2411 Jan, Chronic pain syndrome G89.4 [facility] [address] [place] [address] 96638- 4617 Jan, Anemia, unspecified type D64.9 [facility] [address], [place] [address]- 7698 Jan, Dysthymia F34.1 ; Cervicalgia M54.2 ; Fatigue, unspecified type R53.83 and Depression, unspecified depression type F32.9 [facility] [address] [address]- 7060 Dec, [facility] [id number] [place] [address] 10181- 1868 14 Dec, 2015 Anxiety F41.9 [facility] [address] 65908- 2577 08 Dec, 2015 Chronic pain syndrome G89.4 [facility] [id number] [place] [address] 96171- 3440 November, [facility] [address] 22157- 3181 November, Edema R60.9 and Dizziness R42 [facility] [address] 53553- 9383 November, [facility] [address] 22479- 3664 November, [facility] [address] 77385- 5401 November, COPD (chronic obstructive pulmonary disease) J44.9 ; Increased tracheal secretions J39.8 and Edema R60.9 [facility] [id number] [place] [address] 99732 -9376 Oct, [facility] [id number] [place] [address] 50692 -5238 Oct, Shortness of breath R06.02 and Edema R60.9 [facility] [id number] [place] [address] 28518- 7900 Oct, Chronic bronchitis, unspecified chronic bronchitis type J42 ; Peripheral vascular disease, unspecified I73.9 ; Rheumatoid arthritis M06.9 and Atrial fibrillation I48.91 [facility] [id number] [place] [address] 69258- 1261 Oct, [facility] [id number] [place] [address] 93254- 9608 Oct, [facility] [id number] [place] [address] 93438- 5216 Oct, [facility] [address] [address]- 7198 Oct, [facility] [address], [place] [address] -7244 Oct, COPD exacerbation J44.1 [facility] [address] [address]- 0061 Sep, [facility] [id number] [place] [address] 74924- 2191 Sep, [facility] [id number] [place] [address] 37230- 1584 Sep, [facility] [id number] [place] [address] 55040- 5846 Aug, [facility] [id number] [place] [address] 17805- 8223 Aug, 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 and PVD (peripheral vascular disease ) I73.9 [facility] [address] [place] [address] 56819- 7558 Aug, Bronchitis J40 ; COPD (chronic obstructive pulmonary disease ) J44.9 and Dysthymia F34.1 [facility] [address] [address]- 7962 Aug, [facility] [address], [place] [address]- 6040 Jul, [facility] [address], [place] [address]- 1270 Jul, [facility] [id number] [place] [address] 91943- 2976 Jul, [facility] [address] [address]- 0668 Jun, [facility] [id number] [place] [address] 57387- 7168 Jun, [facility] [address] 0447 Jun, Peripheral vascular disease I73.9 [facility] [id number] [place] [address] 47090- 5979 Jun, [facility] [id number] [place] [address] 286913- 4742 Jun, [facility] [id number] [place] [address] [id number] Jun, Leg pain, left M79.605 ; Dysphagia, unspecified dysphagia R13.10 ; Insomnia, unspecified type G47.00 ; PVD (peripheral vascular disease) I73.9 and 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 [facility] [id number] [place] [address] [phone]- [phone] May, [facility] [id number] [place] [address] [phone] May, [facility] [id number] [place] [address] [phone] May, [facility] [id number] [place] [address] [phone] May, [facility] [id number] [place] [address] [phone] [phone] May, [facility] [id number] [place] [address] [phone] Apr, [facility] [address] [id number] [place] [address] 42598- 8105 Apr, [facility] [id number] [place] [address] 032336- 4056 30 Mar, 2015 [facility] [id number] [place] [address] 34759- 4224 Mar, [facility] [id number] [address] 4786 Feb, [facility] [address] [address] 8405 Feb, Nicotine abuse 305.1 ; Arthralgia 719.40 and 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 [facility] [address] [address]- 4376 Feb, [facility] [id number] [place] [address] 94090- 2455 Jan, [facility] [id number] [place] [address] 57894- 3878 Jan, [facility] [id number] [place] [address] 79783- 4110 Jan, [facility] [id number] [place] [address] 49842- 3381 Jan, [facility] [id number] [place] [address] 48728- 9744 Jan, 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 ; Rheumatoid arthritis 714.0 ; Hypertension 401.9 ; GERD (gastroesophageal reflux disease) 530.81 ; Nicotine addiction 305.1 and Leukocytosis 288.60 [facility] [address] [address]- 0296 Jan, [facility] [address] [address]- 3616 Jan, [facility] [address] [address]- 9837 Jan, [facility] [address] [address]- 4004 Jan, [facility] [address] [address]- 8870 Jan, [facility] [address], [place] [address]- 7498 Dec, [facility] [address], [place] [address]- 4014 Dec, [facility] [id number] [place] [address] 034487- 9048 Dec, [facility] [id number] [place] [address] 698249- 3034 Dec, [facility] [id number] [place] [address] 498663- 7310 November, [facility] [id number] [place] [address] 502463- 0341 November, [facility] [id number] [place] [address] 60675- 4323 November, Shortness of breath 786.05 [facility] [id number] [place] [address] 15963- 0439 November, Rheumatoid arthritis 714.0 [facility] [id number] [place] [address] 03625- 0669 November, 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 [facility] [id number] [place] [address] 34799- 2394 November, Neuropathy 355.9 ; Insomnia 780.52 ; Dysthymia 300.4 ; Shortness of breath 786.05 ; Rheumatoid arthritis 714.0 and Nausea 787.02 [facility] [address] [address]- 7126 November, [facility] [address] [address]- 3667 November, [facility] [id number] [place] [address] 064009- 6796 Oct, [facility] [address] [address]- 4116 Oct, [facility] [id number] [place] [address] 68642- 0456 Oct, [facility] [place] [facility] [address] [id number] [place] [address]- 2959 13 Oct, 2014 [facility] [place] [facility] [address] [id number] [place] [address]- 0386 Sep, [facility] [place] [facility] [address] [id number] [place] [address]- 0285 Sep, [facility] [place] [facility] [address] [id number] [place] [address]- 8987 Sep, [facility] [place] [facility] [address] [id number] [place] [address]- 9619 Sep, [facility] [place] [facility] [address] [id number] [place] [address]- 4973 Sep, [facility] [place] [facility] [address] [id number] [place] [address]- 3104 Sep, [facility] [place] [facility] [address] [id number] [place] [address]- 0719 Sep, [facility] [place] [facility] [address] [id number] [place] [address]- 1085 Sep, [facility] [place] [facility] [address] [id number] [place] [address]- 1840 Aug, [facility] [place] [facility] [address] [id number] [place] [address]- 2456 Aug, [facility] [place] [facility] [address] [id number] [address]- 6179 Aug, [facility] [place] [facility] [address] [id number] [place] [address]- 4131 Aug, [facility] [place] [facility] [address] [id number] [place] [address]- 5871 Aug, [facility] [place] [facility] [address] [id number] [place] [address]- 1828 Aug, [facility] [place] [facility] [address] [id number] [place] [address]- 1219 Jul, [facility] [place] [facility] [address] [id number] [place] [address]- 1770 Jul, [facility] [place] [facility] [address] [id number] [place] [address]- 8666 Jul, [facility] [place] [facility] [address] [id number] [place] [address]- 7766 Jul, [facility] [place] [facility] [address] [id number] [place] [address]- 8846 Jul, [facility] [place] [facility] [address] [id number] [place] [address]- 5207 Jul, [facility] [place] [facility] [address] [id number] [place] [address]- 0452 Jul, [facility] [place] [facility] [address] [id number] [place] [address]- 7961 Jul, [facility] [place] [facility] [address] [id number] [place] [address]- 0907 Jul, [facility] [place] [facility] [address] [id number] [place] [address]- 5904 Jul, [facility] [place] [facility] [address] [facility] [id number] [place] [address]- 3000 Jun, [facility] [place] [facility] [address] [id number] [place] [address]- 6382 Jun, [facility] [place] [facility] [address] [id number] [place] [address]- 0117 Jun, [facility] [place] [facility] [address] [id number] [place] [address]- 6674 Jun, [facility] [place] [facility] [address] [id number] [place] [address]- 2335 Jun, [facility] [place] [facility] [address] [id number] [place] [address]- 8596 Jun, [facility] [place] [facility] [address] [id number] [place] [address]- 1841 Jun, [facility] [place] [facility] [address] [id number] [place] [address]- 9847 Jun, [facility] [place] [facility] [address] [id number] [place] 3522 Jun, [facility] [place] [facility] [address] [id number] [place] [address]- 9630 Jun, [facility] [place] [facility] [address] [id number] [place] [address]- 9899 Jun, [facility] [place] [facility] [address] [id number] [place] [address]- 5485 Jun, [facility] [place] [facility] [address] [id number] [place] [address]- 8013 Jun, [facility] [place] [facility] [address] [id number] [place] [address]- 6879 Jun, [facility] [place] [facility] [address] [id number] [place] [address]- 0657 Jun, [facility] [place] [facility] [address] [id number] [place] [address]- 3188 Jun, [facility] [place] [facility] [address] [id number] [place] [address]- 9175 May, [facility] [place] [facility] [address] [id number] [place] [address]- 1146 May, [facility] [place] [facility] [address] [id number] [place] [address]- 7706 May, [facility] [place] [facility] [address] [id number] [place] [address]- 9186 May, [facility] [place] [facility] [address] [id number] [place] [address]- 4997 May, [facility] [place] [facility] [address] [id number] [place] [address]- 8049 May, [facility] [place] [facility] [address] [id number] [place] [address]- 1153 May, [facility] [place] [facility] [address] [id number] [place] 8745 May, [facility] [place] [facility] [address] [id number] [place] [address]- 4712 May, [facility] [place] [facility] [address] [id number] [place] [address]- 9544 Apr, [facility] [place] [facility] [address] [id number] [place] [address]- 7375 Apr, [facility] [place] [facility] [address] [id number] [place] [address]- 2414 Apr, [facility] [place] [facility] [address] [id number] [place] [address]- 8791 Apr, [facility] [place] [facility] [address] [id number] [place] [address]- 0197 Apr, [facility] [place] [facility] [address] [id number] [place] [address]- 4525 Apr, [facility] [place] [facility] [address] [id number] [place] [address]- 5359 Apr, [facility] [place] [facility] [address] [id number], [place] [address]- 7189 Apr, [facility] [place] [facility] [address] [id number], [place] [address]- 5731 Apr, [facility] [place] [facility] [address] [id number] [place] [address]- 6406 Apr, [facility] [place] [facility] [address] [id number], [place] [address]- 8652 Apr, [facility] [place] [facility] [address] [id number] [place] [address]- 8548 Apr, [facility] [place] [facility] [address] [id number] [place] [address]- 4969 22 Mar, 2013 [facility] [place] [facility] [address] [id number] [place] [address]- 3158 22 Mar, 2013 [facility] [place] [facility] [address] [id number] [place] [address]- 2546 Mar, 2013 [facility] [place] [facility] [address] [id number] [place] [address]- 8436 Mar, 2013 [facility] [place] [facility] [address] [id number] [place] [address]- 6990 Mar, 2013 [facility] [place] [facility] [address] [id number] [place] [address]- 5239 Mar, 2013 [facility] [place] [facility] [address] [id number] [place] [address]- 4347 Mar, 2013 [facility] [place] [facility] [address] [id number] [place] [address]- 0376 Mar, 2013 [facility] [place] [facility] [address] [id number] [place] [address]- 5146 Mar, [facility] [place] [facility] [address] [id number] [place] [address]- 3050 Mar, [facility] [place] [facility] [address] [id number] [place] [address]- 9575 Feb, [facility] [place] [facility] [address] [id number] [place] [address]- 254 Feb, [facility] [place] [facility] [address] [id number] [place] [address]- 2549 Feb, [facility] [place] [facility] [address] [id number] [place] [address]- 2904 Feb, [facility] [place] [facility] [address] [id number] [place] [address]- 7041 Feb, [facility] [place] [facility] [address] [id number] [place] [address]- 1829 Feb, [facility] [place] [facility] [address] [id number] [place] [address]- 7026 Feb, [facility] [place] [facility] [address] [id number] [place] [address]- 1222 Feb, [facility] [place] [facility] [address] [id number] [place] [address]- 8653 Feb, [facility] [place] [facility] [address] [id number] [place] [address]- 4954 Feb, [facility] [place] [facility] [address] [id number] [place] [address]- 9966 Feb, [facility] [place] [facility] [address] [id number] [place] [address]- 8231 Feb, [facility] [place] [facility] [address] [id number] [place] [address]- 6948 Feb, [facility] [place] [facility] [address] [id number] [place] [address]- 4915 Feb, [facility] [place] [facility] [address] [id number] [place] [address]- 6476 Feb, [facility] [place] [facility] [address] [id number] [place] [address]- 3032 Feb, [facility] [place] [facility] [address] [id number] [place] [address]- 2283 Jan, [facility] [place] [facility] [address] [id number] [place] [address]- 3564 Jan, [facility] [place] [facility] [address] [id number] [place] [address]- 3448 Jan, [facility] [place] [facility] [address] [id number] [place] [address]- 6885 Jan, [facility] [place] [facility] [address] [id number] [place] [address]- 1034 Jan, [facility] [place] [facility] [address] [id number], [place] [address]- 0853 Jan, [facility] [place] [facility] [address] [id number] [place] [address]- 4557 Dec, [facility] [place] [facility] [address] [id number] [place] [address]- 7706 Dec, [facility] [place] [facility] [address] [id number] [place] [address]- 0469 Dec, [facility] [place] [facility] [address] [id number] [place] [address]- 1567 Dec, [facility] [place] [facility] [address] [id number] [place] [address]- 4555 Dec, [facility] [place] [facility] [address] [id number] [place] [address]- 2288 Dec, [facility] [place] [facility] [address] [id number] [place] [address]- 4068 Dec, [facility] [place] [facility] [address] [id number] [place] [address]- 9992 Dec, [facility] [place] [facility] [address] [id number] [place] [address]- 4862 November, [facility] [place] [facility] [address] [id number] [place] [address]- 0729 November, [facility] [place] [facility] [address] [id number] [place] [address]- 3557 November, [facility] [place] [facility] [address] [id number] [place] [address]- 5319 November, [facility] [place] [facility] [address] [id number] [place] [address]- 6648 November, [facility] [place] [facility] [address] [id number] [place] [address]- 4451 November, [facility] [place] [facility] [address] [id number] [place] [address]- 1334 Oct, [facility] [place] [facility] [address] [id number] [place] [address]- 4969 Oct, [facility] [place] [facility] [address] [id number] [place] [address]- 7676 Oct, [facility] [place] [facility] [address] [id number] [place] [address]- 0715 Oct, [facility] [place] [facility] [address] [id number] [place] [address]- 2497 Sep, [facility] [place] [facility] [address] [id number] [place] [address]- 0432 Sep, [facility] [place] [facility] [address] [id number] [place] [address]- 4097 Sep, [facility] [place] [facility] [address] [facility] [id number] [place] [address]- 7457 Sep, [facility] [place] [facility] [address] [id number] [place] [address]- 5266 Sep, [facility] [place] [facility] [address] [id number] [place] [address]- 4260 Sep, [facility] [place] [facility] [address] [id number] [place] [address]- 3401 Aug, [facility] [place] [facility] [address] [facility] [id number] [place] [address]- 8211 Aug, [facility] [place] [facility] [address] [id number] [place] [address]- 4691 Aug, [facility] [place] [facility] [address] [id number] [place] [address]- 1096 Aug, [facility] [place] [facility] [address] [id number] [place] [address]- 1277 Aug, [facility] [place] [facility] [address] [id number] [place] [address]- 9075 Aug, [facility] [place] [facility] [address] [facility] [id number] [place] [address]- 9655 Jul, [facility] [address] [id number] [place] [address]- 0719 Jul, [facility] [place] [facility] [address] [id number] [place] [address]- 1257 Jul, [facility] [place] [facility] [address] [id number] [place] [address]- 9587 Jul, [facility] [place] [facility] [address] [id number] [place] [address]- 0823 Jul, [facility] [place] [facility] [address] [id number] [place] [address]- 4233 Jul, [facility] [place] [facility] [address] [id number] [place] [address]- 4299 Jul, [facility] [place] [facility] [address] [id number] [place] [address]- 9034 Jul, [facility] [place] [facility] [address] [id number] [place] [address]- 1073 Jul, [facility] [place] [facility] [address] [id number] [place] [address]- 9686 Jul, [facility] [place] [facility] [address] [id number] [place] [address]- 9560 Jul, [facility] [place] [facility] [address] [id number] [place] [address]- 4154 Jul, [facility] [place] [facility] [address] [id number] [place] [address]- 6202 Jul, [facility] [place] [facility] [address] [id number] [place] [address]- 2280 Jul, [facility] [place] [facility] [address] [id number] [place] [address]- 7110 Jul, [facility] [place] [facility] [address] [id number] [place] [address]- 7367 Jun, [facility] [place] [facility] [address] [id number] [place] [address]- 3621 18 Jun, 2013 [facility] [address] [id number] [place] [address]- 8684 Jun, [facility] [place] [facility] [address] [id number] [place] [address]- 3865 Jun, [facility] [place] [facility] [address] [id number] [place] [address]- 4049 May, [facility] [place] [facility] [address] [id number] [place] [address]- 8475 May, [facility] [address] [facility] [id number] [id number] May, [facility] [place] [facility] [address] [id number] [place] [address]- 4110 May, [facility] [place] [facility] [address] [id number] [place] [address]- 2306 May, [facility] [place] [facility] [address] [id number] [place] [address]- 7363 May, [facility] [place] [facility] [address] [id number] [place] [address]- 9468 May, [facility] [address] [facility] [id number], [place] [address]- 3857 May, [facility] [place] [facility] [address] [id number], [place] [address]- 6327 May, [facility] [address] [id number] [id number] May, [facility] [place] [facility] [address] [id number], [place] [address]- 8474 May, [facility] [address] [facility] [id number] [id number] May, [facility] [place] [facility] [address] [id number], [place] [address]- 3803 May, [facility] [address] [facility] [id number] [place] [id number] May, [facility] [address] [facility] [id number] [place] [address] [address]272 May, IMMUNIZATIONS No Known Immunizations SOCIAL HISTORY Never Assessed REASON FOR VISIT Controlled Med Refill PLAN OF CARE VITAL SIGNS MEDICATIONS Medication Instructions Dosage Frequency Start Date End Date Duration Status Oxycodone-Acetaminophen 5-325 MG Orally 2 times a day 1 tablet 12h Feb, 28 days Active RESULTS No Results PROCEDURES [...] Diarrhea, leukocytosis--[facility] 01/08/16 Hospitalization History pseudomemranous colitis, sepsis--[facility] 04/21/2016 Hospitalization History C Diff--[facility] 05/10/2016 Hospitalization History sepsis, pneumonia, diarrhea--[facility] 06/11/16 Hospitalization History recurrent cdiff, pneumonia-[facility] 07/22/16 Hospitalization History sepsis,pneumonia- [facility]
--- OUTSIDE RECORDS SUMMARY | 2018-09-02 10:41 | XMS REPORT ---
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 Name Role Phone DAPHNE YUSUF Unavailable PROBLEMS Type Condition ICD9-CM Code ZAS97-XA Code Onset Dates Condition Status SNOMED Code Problem Hx of Clostridium difficile infection Z86.19 Active 664379900 Problem History of arthroplasty of right knee Z96.651 Active 836369829 Problem Dysphagia, unspecified dysphagia R13.10 Active 24849058 Problem Chronic pain syndrome G89.4 Active 861721291 Problem 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 296068430 Problem Anxiety F41.9 Active 03459547 Problem Leg pain, left M79.605 Active 605229944 Problem Depression, unspecified depression type F32.9 Active 46683571 Problem Iron deficiency anemia, unspecified iron deficiency anemia type D50.9 Active 18441694 Problem Anemia, unspecified type D64.9 Active 810201415 Problem Seasonal allergic rhinitis due to pollen J30.1 Active 86359385 Problem Insomnia, unspecified G47.00 Active 381510803 Problem 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 651015190 Problem History of cerebrovascular accident with current residual effects I69.90 Active 405361529 Problem Peripheral vascular disease, unspecified I73.9 Active 681849879 Problem Rheumatoid arthritis, involving unspecified site, unspecified rheumatoid factor presence M06.9 Active 28969062 Problem Other chronic pain G89.29 Active 97751098 Problem Primary insomnia F51.01 Active 3021449 Problem Chronic obstructive pulmon disease w acute lower resp infct J44.0 Active 189725401 Problem Atrial fibrillation I48.91 Active 57893736 Problem Dysthymia F34.1 Active 64195179 Problem Osteoarthritis of foot M19.079 Active 477865695 Problem Rheumatoid arthritis M06.9 Active 72806425 Problem Tobacco abuse, 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 Diff Drug Allergy Sep, Active ENCOUNTERS Encounter Location Date Diagnosis [facility] [id number] [place] [address] 28854- 7598 Mar, [facility] [id number] [place] [address] 70311- 7726 Feb, Chronic pain syndrome G89.4 [facility] [id number] [place] [address] 27290- 5416 Feb, Chronic pain syndrome G89.4 [facility] [id number] [place] [address] 45286- 9933 Jan, Chronic pain syndrome G89.4 [facility] [id number] [place] [address] 10589- 2221 Jan, [facility] [id number] [place] [address] 87993- 4680 Dec, Chronic pain syndrome G89.4 [facility] [id number] [place] [address] 42694- 0043 November, Chronic pain syndrome G89.4 [facility] [id number] [place] [address] 49437- 5868 November, [facility] [id number] [place] [address] 38669- 0385 Oct, Chronic pain syndrome G89.4 [facility] [id number] [place] [address] 55128- 5991 Oct, [facility] [id number] [place] [address] 46287- 7573 Oct, Chronic pain syndrome G89.4 [facility] [id number] [place] [address] 74176- 3131 Oct, [facility] [address] [address]- 3720 Oct, [facility] [id number] [place] [address] 692938- 0811 Sep, Left upper quadrant pain R10.12 ; Chronic pain syndrome G89.4 ; Left lower quadrant pain R10.32 ; Other chronic pain G89.29 ; Sacrococcygeal disorders, not elsewhere classified M53.3 and Seasonal allergic rhinitis due to pollen J30.1 [facility] [id number] [place] [address] 16279- 6844 Sep, Chronic pain syndrome G89.4 [facility] [id number] [place] [address] 89657- 8099 Sep, [facility] [id number] [place] [address] 22796- 6486 Aug, Chronic pain syndrome G89.4 [facility] [id number] [place] [address] 68171- 6608 Aug, [facility] [id number] [place] [address] 97982- 3737 Aug, Insomnia, unspecified G47.00 [facility] [id number] [place] [address] 90800- 1954 Jul, [facility] [id number] [place] [address] 76285- 1969 Jul, [facility] [id number] [place] [address] 41842- 3657 Jul, Chronic pain syndrome G89.4 [facility] [id number] [place] [address] 998130- 3566 Jun, Chronic pain syndrome G89.4 [facility] [address] [address] 1315 Jun, Chronic pain syndrome G89.4 [facility] [address] [address]- 2783 May, [facility] [id number] [place] [address] 83372- 8563 May, Shortness of breath R06.02 ; Peripheral vascular disease, unspecified I73.9 ; Pain in right knee M25.561 ; Other chronic pain G89.29 ; Chest wall pain R07.89 ; Chronic pain syndrome G89.4 ; Primary insomnia F51.01 and Ear pain, left H92.02 [facility] [id number] [place] [address] 99177- 7400 May, Anxiety F41.9 [facility] [id number] [place] [address] 84781- 8586 Apr, Pneumonia due to infectious organism, unspecified laterality , unspecified part of lung J18.9 ; Hypoxia R09.02 ; Bradycardia R00.1 ; History of Clostridium difficile Z87.19 and Primary insomnia F51.01 [facility] [id number] [place] [address] 32269- 5422 Apr, Anxiety F41.9 [facility] [id number] [place] [address] 37582- 0395 Apr, [facility] [id number] [place] [address] 67114- 7581 Mar, Anxiety F41.9 [facility] [id number] [place] [address] 45298- 1104 Feb, [facility] [id number] [place] [address] 05517- 8317 Feb, [facility] [id number] [place] [address] 49727- 9189 Feb, Abnormal finding on urinalysis R82.90 [facility] [id number] [place] [address] 55062- 0206 Feb, [facility] [id number] [place] [address] 18673- 7090 Feb, Shortness of breath R06.02 ; Tachycardia R00.0 ; Cough R05 ; Ill feeling R68.89 and Abnormal finding on urinalysis R82.90 [facility] [id number] [place] [address] 72769- 3673 Feb, Anxiety F41.9 [facility] [id number] [place] [address] 13846 -8718 Feb, Sore throat J02.9 and Acute diffuse otitis externa of left ear H60.312 [place] [address] 82481- 0259 Jan, [facility] [id number] [place] [address] 86421- 3611 Jan, [place] [address] [id number] Jan, [facility] [id number] [place] [address] 30135- 9706 Jan, Depression, unspecified depression type F32.9 ; Chronic bronchitis, unspecified chronic bronchitis type J42 ; Chronic pain syndrome G89.4 and Anxiety F41.9 [facility] [id number] [place] [address] 26405- 8904 Jan, [facility] [id number] [place] [address] 66937- 4018 Jan, [facility] [id number] [place] [address] 97586- 1808 Jan, [facility] [id number] [place] [address] [id number] Jan, Chronic pain syndrome G89.4 [facility] [address] [id number] Dec, History of right knee surgery Z98.890 [place] [id number] [place] [address] 62277- 1360 Dec, [facility] [address] [address]- 2043 Dec, Chronic pain syndrome G89.4 [facility] [address] [address]- 7451 November, Anxiety F41.9 [facility] [id number] [place] [address] 15942 -9907 November, Acute cystitis without hematuria N30.00 [facility] [id number] [place] [address] 71545 -5898 November, Fever, unspecified fever cause R50.9 and Acute cystitis without hematuria N30.00 [facility] [id number] [place] [address] 86041- 9991 November, Chronic pain syndrome G89.4 [facility] [id number] [place] [address] 36134- 6810 Oct, Anxiety F41.9 [facility] [id number] [place] [address] 71915- 1638 Oct, Chronic pain syndrome G89.4 [facility] [facility] [id number] [place] [address] 74171- 4241 Oct, Chronic pain syndrome G89.4 [facility] [facility] [address] [address]- 0088 Oct, [facility] [facility] [id number] [place] [address] 67362- 0946 Oct, Chronic pain syndrome G89.4 ; Pain in right knee M25.561 ; History of Clostridium difficile Z87.19 ; Iron deficiency anemia, unspecified iron deficiency anemia type D50.9 ; Peripheral vascular disease, unspecified I73.9 and Atrial fibrillation I48.91 [place] [address] [address]- 0446 Oct, [facility] [id number] [place] [address] 67349- 1415 Oct, Chronic pain syndrome G89.4 [facility] [id number] [place] [address] 97365- 2159 Sep, [facility] [id number] [place] [address] 95931- 0770 Sep, Depression, unspecified depression type F32.9 ; Chronic bronchitis, unspecified chronic bronchitis type J42 ; Chronic pain syndrome G89.4 and Anxiety F41.9 [facility] [address] [id number] Sep, History of Clostridium difficile infection Z86.19 and History of stroke Z86.73 [facility] [id number] [place] [address] [id number] Sep, Anxiety F41.9 [facility] [id number] [place] [address] 70776- 3780 Sep, Chronic pain syndrome G89.4 [facility] [id number] [place] [address] 56307- 3413 Sep, [facility] [id number] [place] [address] [id number] Sep, [facility] [id number] [place] [address] 71907- 6878 Aug, Anxiety F41.9 [facility] [id number] [place] [address] 11144- 4583 Aug, Anxiety F41.9 [facility] [id number] [place] [address] 91824- 3609 16 Aug, 2016 [facility] [id number] [place] [address] 84162- 9199 14 Aug, 2016 Acute knee pain, unspecified laterality M25.569 [facility] [address] [address]- 4123 13 Aug, 2016 [facility] [id number] [place] [address] 96375- 1132 Aug, Chronic pain syndrome G89.4 [facility] [id number] [place] [address] 42980- 4387 Aug, [facility] [id number] [place] [address] 92665- 7523 Aug, [facility] [id number] [place] [address] 64496- 8535 Jul, [facility] [id number] [place] [address] 07846- 0061 Jul, Anxiety F41.9 [facility] [id number] [place] [address] 90486- 2759 Jul, Clostridium difficile diarrhea A04.7 [facility] [address] [id number] Jul, Clostridium difficile diarrhea A04.7 ; Chronic pain syndrome G89.4 ; Chronic obstructive pulmon disease w acute lower resp infct J44.0 and Pain in right knee M25.561 [facility] [id number] [place] [address] [id number] Jul, [facility] [id number] [place] [address] 40454 -4002 Jul, Anxiety F41.9 and Chronic pain syndrome G89.4 [facility] [id number] [place] [address] 28854- 7641 Jun, Anxiety F41.9 [facility] [id number] [place] [address] 34905- 9109 Jun, Rheumatoid arthritis 714.0 [facility] [id number] [place] [address] 08073- 4929 Jun, Chronic pain syndrome G89.4 [facility] [id number] [place] [address] 35604- 0332 Jun, [facility] [id number] [place] [address] 42742- 9244 13 Jun, 2016 [facility] [address] [address]- 7631 12 Jun, 2016 History of pneumonia Z87.01 and History of Clostridium difficile Z87.19 [facility] [address] [address]- 4272 06 Jun, 2016 [facility] [id number] [place] [address] 24800- 4775 May, [facility] [id number] [place] [address] 76590- 3512 May, Anxiety F41.9 [facility] [id number] [place] [address] 11998- 5080 May, Chronic pain syndrome G89.4 [facility] [id number] [place] [address] 73495- 5817 May, Chronic bronchitis, unspecified chronic bronchitis type J42 [facility] [facility] [address] [address]- 4094 May, [place] [address] [place] [address] 83392- 3295 May, C. difficile diarrhea A04.7 ; Peripheral edema R60.9 ; COPD (chronic obstructive pulmonary disease) J44.9 ; Rheumatoid arthritis, involving unspecified site, unspecified rheumatoid factor presence M06.9 ; Pain in right knee M25.561 ; Pain in left knee M25.562 and Other chronic pain G89.29 [facility] [facility] [address] [address]- 7219 May, [facility] [id number] [place] [address] 62673- 7372 May, [facility] [id number] [address]- 2294 May, Anxiety F41.9 [facility] [id number] [place] [address] 71112- 0907 Apr, [facility] [address] [address]- 1426 Apr, Chronic pain syndrome G89.4 [facility] [address], [place] [address]- 0182 Apr, Leg pain, left M79.605 [facility] [id number] [place] [address] 39018- 5302 Apr, [facility] [id number] [place] [address] 58303- 2151 Apr, [facility] [id number] [place] [address] 35729- 8779 Apr, [facility] [id number] [place] [address] 66484- 5082 Mar, Chronic pain syndrome G89.4 [facility] [id number] [place] [address] 35206- 2772 Mar, Acute frontal sinusitis, recurrence not specified J01.10 [facility] [id number] [place] [address] 95286- 7606 20 Mar, 2016 Iron deficiency anemia, unspecified iron deficiency anemia type D50.9 ; Rheumatoid arthritis with positive rheumatoid factor, involving unspecified site M05.9 and Depression, unspecified depression type F32.9 [facility] [address], [place] [address]- 0079 13 Mar, 2016 Iron deficiency anemia, unspecified iron deficiency anemia type D50.9 ; Depression, unspecified depression type F32.9 and Rheumatoid arthritis with positive rheumatoid factor, involving unspecified site M05.9 [facility] [id number] [place] [address] 86406- 3569 Mar, [facility] [address] [address]- 5321 Mar, [facility] [id number] [place] [address] 15731- 3375 Feb, Chronic pain syndrome G89.4 [facility] [id number] [place] [address] 25181- 6884 30 Feb, 2016 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 ; Status post CVA Z86.73 ; Hemiplegia G81.90 and Anemia, unspecified type D64.9 [facility] [id number] [place] [address] 06337- 7130 Feb, [facility] [id number] [place] [address] 64895- 2483 Feb, Anemia, unspecified type D64.9 [facility] [id number] [place] [address] 51082- 5679 Feb, [facility] [id number] [place] [address] 02423- 1914 Feb, Iron deficiency anemia, unspecified iron deficiency anemia type D50.9 [facility] [id number] [place] [address] 46317- 7826 Feb, [facility] [id number] [place] [address] 79544- 9326 Feb, Chronic bronchitis, unspecified chronic bronchitis type J42 [facility] [id number] [place] [address] 08594- 7592 Feb, Iron deficiency anemia, unspecified iron deficiency anemia type D50.9 [facility] [id number] [place] [address] 71930- 6452 Feb, Chronic pain syndrome G89.4 [facility] [id number] [place] [address] 04806- 6682 Feb, Anemia, unspecified type D64.9 and Hypoxia R09.02 [facility] [id number] [place] [address] 96833- 4307 Feb, Anemia, unspecified type D64.9 [facility] [address] [address]- 1182 Jan, [facility] [address], [place] [address]- 6194 Jan, Anemia, unspecified type D64.9 [facility] [address], [place] [address]- 6793 Jan, [facility] [id number] [place] [address] 06032- 0458 Jan, Anemia, unspecified type D64.9 [facility] [address], [place] [address]- 8868 Jan, Anemia, unspecified type D64.9 [facility] [address] [address]- 7881 Jan, [facility] [id number] [place] [address] 29020- 0572 Jan, Anemia, unspecified type D64.9 [facility] [address] [address]- 8283 Jan, [facility] [id number] [place] [address] 61823- 3879 Jan, [facility] [address], [place] [address]- 9246 Jan, Chronic pain syndrome G89.4 [facility] [address], [place] [address]- 9001 Jan, Anemia, unspecified type D64.9 [facility] [address], [place] [address]- 7086 Jan, Dysthymia F34.1 ; Cervicalgia M54.2 ; Fatigue, unspecified type R53.83 and Depression, unspecified depression type F32.9 [facility] [address], [place] [address]- 7149 Dec, [facility] [id number] [place] [address] 54374- 3869 14 Dec, 2015 Anxiety F41.9 [facility] [id number] [place] [address] 75458- 4603 08 Dec, 2015 Chronic pain syndrome G89.4 [facility] [id number] [place] [address] 80986- 5267 November, [facility] [address] 44526- 5741 November, Edema R60.9 and Dizziness R42 [facility] [id number] [place] [address] 11896- 3336 November, [place] [address] 85073- 7151 November, [place] [address] 45652- 9709 November, COPD (chronic obstructive pulmonary disease) J44.9 ; Increased tracheal secretions J39.8 and Edema R60.9 [facility] [id number] [place] [phone] Oct, [facility] [address] [place] [id number] [place] [phone] Oct, Shortness of breath R06.02 and Edema R60.9 [facility] [address] [place] [place] [id number] [place] [address] Oct, Chronic bronchitis, unspecified chronic bronchitis type J42 ; Peripheral vascular disease, unspecified I73.9 ; Rheumatoid arthritis M06.9 and Atrial fibrillation I48.91 [facility] [address] [place] [place] [id number] [place] [address] 20610- 6247 Oct, [facility] [address] [place] [id number] [place] [address] 31416- 3512 Oct, [facility] [address] [place] [place] [id number] [place] [address] 73[address]- [address] Oct, [facility] [id number] [place] [address] Oct, [facility] [id number] [place] [address] Oct, COPD exacerbation J44.1 [facility] [id number] [place] [address] Sep, [facility] [id number] [place] [address] 24872- [address]01 Sep, [facility] [id number] [place] [address] Sep, [facility] [id number] [address] Aug, [facility] [id number] [address] Aug, 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 and PVD (peripheral vascular disease ) I73.9 [facility] [id number] [address] Aug, Bronchitis J40 ; COPD (chronic obstructive pulmonary disease ) J44.9 and Dysthymia F34.1 [facility] [address], [place] [address] Aug, [facility] [address] [address] 2718 Jul, [facility] [address], [place] [address] 6922 Jul, [facility] [address], [place] [address] 8260 Jul, [facility] [address], [place] [address] 6778 Jun, [facility] [address], [place] [address] 9973 Jun, [facility] [address] [address] Jun, Peripheral vascular disease I73.9 [facility] [id number] [place] [address] 50166- 6938 Jun, [facility] [id number] [place] [address] 970065- 8025 Jun, [facility] [id number] [place] [address] 209059- 2831 Jun, Leg pain, left M79.605 ; Dysphagia, unspecified dysphagia R13.10 ; Insomnia, unspecified type G47.00 ; PVD (peripheral vascular disease) I73.9 and 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 [facility] [id number] [place] [address] 46708- 2022 May, [facility] [id number] [place] [address] 14699- 2731 May, [facility] [id number] [place] [address] 38223- 0973 May, [facility] [id number] [place] [address] 77027- 6348 May, [facility] [id number] [place] [address] 44923- 6804 May, [facility] [id number] [place] [address] 23435- 5214 Apr, [facility] [id number] [place] [address] 24536- 7906 Apr, [facility] [id number] [place] [address] 521914- 9433 Mar, [facility] [id number] [place] [address] 937905- 3410 Mar, [facility] [id number] [place] [address] 07797- 6774 Feb, [facility] [address] [address]- 4147 Feb, Nicotine abuse 305.1 ; Arthralgia 719.40 and 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 [facility] [id number], [place] [address]- 0005 Feb, [facility] [id number] [place] [address] 56106- 0433 Jan, [facility] [address], [place] [address]- 2410 Jan, [facility] [id number] [place] [address] 60737- 5800 Jan, [facility] [address], [place] [address]- 9975 Jan, [facility] [address], [place] [address]- 0844 Jan, 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 ; Rheumatoid arthritis 714.0 ; Hypertension 401.9 ; GERD (gastroesophageal reflux disease) 530.81 ; Nicotine addiction 305.1 and Leukocytosis 288.60 [facility] [address] [address]- 6441 Jan, [facility] [address], [place] [address]- 3385 Jan, [facility] [address], [place] [address]- 6115 Jan, [facility] [address], [place] [address]- 3195 Jan, [facility] [address], [place] [address]- 4095 Jan, [facility] [id number] [address]- 7321 Dec, [facility] [address], [place] [address]- 6949 Dec, [facility] [id number] [place] [address] 47009- 3641 Dec, [facility] [id number] [place] [address] 67621- 5616 Dec, [facility] [id number] [place] [address] 265074- 7039 November, [facility] [id number] [place] [address] 97445- 7725 November, [facility] [id number] [place] [address] 09990- 7890 November, Shortness of breath 786.05 [facility] [id number] [place] [address] 58546- 3112 November, Rheumatoid arthritis 714.0 [facility] [id number] [place] [address] 43391- 6427 November, 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 [facility] [id number] [place] [address] 89553- 9098 November, Neuropathy 355.9 ; Insomnia 780.52 ; Dysthymia 300.4 ; Shortness of breath 786.05 ; Rheumatoid arthritis 714.0 and Nausea 787.02 [facility] [address] [address]- 1502 November, [facility] [id number] [place] [address] 06622- 8821 November, [facility] [id number] [place] [address] 81651- 3497 Oct, [facility] [id number] [place] [address] 96935- 5868 Oct, [facility] [id number] [place] [address] 09116- 6236 Oct, [facility] [place] [facility] [address] [id number] [place] [address]- 3296 13 Oct, 2014 [facility] [place] [facility] [address] [id number] [place] [address]- 0362 Sep, [facility] [place] [facility] [address] [id number] [place] [address]- 7636 Sep, [facility] [place] [facility] [address] [id number] [place] [address]- 2457 Sep, [facility] [place] [facility] [address] [id number] [place] [address]- 7621 Sep, [facility] [place] [facility] [address] [id number] [place] [address]- 6751 Sep, [facility] [place] [facility] [address] [id number] [place] [address]- 0688 Sep, [facility] [place] [facility] [address] [id number] [place] [address]- 9611 Sep, [facility] [place] [facility] [address] [id number] [place] [address]- 9913 Sep, [facility] [place] [facility] [address] [id number] [place] [address]- 9237 Aug, [facility] [place] [facility] [address] [id number] [place] [address]- 5943 Aug, [facility] [place] [facility] [address] [id number] [place] [address]- 9746 Aug, [facility] [place] [facility] [address] [id number] [place] [address]- 6812 Aug, [facility] [place] [facility] [address] [id number] [place] [address]- 9697 Aug, [facility] [place] [facility] [address] [id number] [place] 2304 Aug, [facility] [place] [facility] [address] [id number] [place] [address]- 0889 Jul, [facility] [place] [facility] [address] [id number] [place] [address]- 0463 Jul, [facility] [place] [facility] [address] [id number] [place] [address]- 6250 Jul, [facility] [place] [facility] [address] [id number] [place] [address]- 0509 Jul, [facility] [place] [facility] [address] [id number] [place] [address]- 2227 Jul, [facility] [place] [facility] [address] [id number] [place] [address]- 6433 Jul, [facility] [place] [facility] [address] [id number] [place] [address]- 7909 Jul, [facility] [place] [facility] [address] [id number] [place] [address]- 1554 Jul, [facility] [place] [facility] [address] [id number] [place] [address]- 8736 Jul, [facility] [place] [facility] [address] [id number] [place] [address]- 3451 Jul, [facility] [place] [facility] [address] [id number] [place] [address]- 5528 Jun, [facility] [place] [facility] [address] [id number] [place] [address]- 7933 Jun, [facility] [place] [facility] [address] [id number] [place] [address]- 9329 Jun, [facility] [place] [facility] [address] [id number] [place] [address]- 0210 Jun, [facility] [place] [facility] [address] [id number] [place] [address]- 1820 Jun, [facility] [place] [facility] [address] [id number] [place] [address]- 0407 Jun, [facility] [place] [facility] [address] [id number] [place] [address]- 9027 Jun, [facility] [place] [facility] [address] [id number] [place] [address]- 1435 Jun, [facility] [place] [facility] [address] [id number] [place] [address]- 0711 Jun, [facility] [place] [facility] [address] [id number] [place] [address]- 1707 Jun, [facility] [place] [facility] [address] [id number] [place] [address]- 9545 Jun, [facility] [place] [facility] [address] [id number] [place] [address]- 2054 Jun, [facility] [place] [facility] [address] [id number] [place] [address]- 8189 Jun, [facility] [place] [facility] [address] [id number] [place] [address]- 2233 Jun, [facility] [place] [facility] [address] [id number] [place] [address]- 3757 Jun, [facility] [place] [facility] [address] [id number] [place] [address]- 7018 Jun, [facility] [place] [facility] [address] [id number] [place] [address]- 7438 May, [facility] [place] [facility] [address] [id number] [place] [address]- 1776 May, [facility] [place] [facility] [address] [id number] [place] [address]- 7447 May, [facility] [place] [facility] [address] [id number] [place] [address]- 7355 May, [facility] [place] [facility] [address] [id number] [place] [address]- 9072 May, [facility] [place] [facility] [address] [id number] [place] [address]- 7471 May, [facility] [place] [facility] [address] [id number] [place] [address]- 6575 May, [facility] [place] [facility] [address] [id number] [place] [address]- 0791 May, [facility] [place] [facility] [address] [id number] [place] [address]- 1157 May, [facility] [place] [facility] [address] [id number] [place] [address]- 4305 Apr, [facility] [place] [facility] [address] [id number] [place] [address]- 6730 Apr, [facility] [place] [facility] [address] [id number] [place] [address]- 0517 Apr, [facility] [place] [facility] [address] [id number] [place] [address]- 3421 Apr, [facility] [place] [facility] [address] [id number] [address]- 4468 Apr, [facility] [place] [facility] [address] [id number], [place] [address]- 6061 Apr, [facility] [place] [facility] [address] [id number], [place] [address]- 1855 Apr, [facility] [place] [facility] [address] [id number], [place] [address]- 5686 Apr, [facility] [place] [facility] [address] [id number] [address]- 7562 Apr, [facility] [place] [facility] [address] [id number], [place] [address]- 5859 Apr, [facility] [place] [facility] [address] [id number], [place] [address]- 4499 Apr, [facility] [place] [facility] [address] [id number], [place] [address]- 6519 Apr, [facility] [place] [facility] [address] [id number] [place] [address]- 6582 22 Mar, 2013 [facility] [place] [facility] [address] [id number] [place] [address]- 4336 22 Mar, 2013 [facility] [place] [facility] [address] [id number] [place] [address] 2546 Mar, 2013 [facility] [place] [facility] [address] [id number] [place] [address]- 4866 Mar, 2013 [facility] [place] [facility] [address] [id number] [place] [address] 2547 Mar, 2013 [facility] [place] [facility] [address] [id number] [place] [address]- 9935 Mar, 2013 [facility] [place] [facility] [address] [id number] [place] [address]- 9821 Mar, 2013 [facility] [place] [facility] [address] [id number] [place] [address]- 8036 Mar, 2013 [facility] [place] [facility] [address] [id number] [place] [address]- 2924 Mar, [facility] [place] [facility] [address] [id number] [place] [address]- 2716 Mar, [facility] [place] [facility] [address] [id number] [place] [address]- 8133 Feb, [facility] [place] [facility] [address] [id number] [place] [address]- 2540 Feb, [facility] [place] [facility] [address] [id number] [place] [address]- 5743 Feb, [facility] [place] [facility] [address] [id number] [place] [address]- 8535 Feb, [facility] [place] [facility] [address] [id number] [place] [address]- 0686 Feb, [facility] [place] [facility] [address] [id number] [place] [address]- 3455 Feb, [facility] [place] [facility] [address] [id number] [place] [address]- 4336 Feb, [facility] [place] [facility] [address] [id number] [place] [address]- 5990 Feb, [facility] [place] [facility] [address] [id number] [place] [address]- 6561 Feb, [facility] [place] [facility] [address] [id number] [place] [address]- 7092 Feb, [facility] [place] [facility] [address] [id number] [place] [address]- 1971 Feb, [facility] [place] [facility] [address] [id number] [place] [address]- 5511 Feb, [facility] [place] [facility] [address] [id number] [place] [address]- 7408 Feb, [facility] [place] [facility] [address] [id number] [place] [address]- 4531 Feb, [facility] [place] [facility] [address] [id number] [place] [address]- 4827 Feb, [facility] [place] [facility] [address] [id number] [place] [address]- 9449 Feb, [facility] [place] [facility] [address] [id number] [place] [address]- 6820 Jan, [facility] [place] [facility] [address] [id number] [place] [address]- 2127 Jan, [facility] [place] [facility] [address] [id number] [place] [address]- 3889 Jan, [facility] [place] [facility] [address] [id number] [place] [address]- 4631 Jan, [facility] [place] [facility] [address] [id number] [place] [address]- 9228 Jan, [facility] [place] [facility] [address] [id number] [place] [address]- 9324 Jan, [facility] [place] [facility] [address] [id number] [place] [address]- 5145 Dec, [facility] [place] [facility] [address] [id number] [place] [address]- 5772 Dec, [facility] [place] [facility] [address] [id number] [place] [address]- 9034 Dec, [facility] [place] [facility] [address] [id number] [place] [address]- 1768 Dec, [facility] [place] [facility] [address] [id number] [place] [address]- 7173 Dec, [facility] [place] [facility] [address] [id number] [place] [address]- 3000 Dec, [facility] [place] [facility] [address] [id number] [place] [address]- 0863 Dec, [facility] [place] [facility] [address] [id number] [place] [address]- 4226 Dec, [facility] [place] [facility] [address] [id number] [place] [address]- 6711 November, [facility] [place] [facility] [address] [id number] [place] [address]- 7536 November, [facility] [place] [facility] [address] [id number] [place] [address]- 4515 November, [facility] [place] [facility] [address] [id number] [place] [address]- 3180 November, [facility] [place] [facility] [address] [id number] [place] [address]- 0695 November, [facility] [place] [facility] [address] [id number] [place] [address]- 7909 November, [facility] [place] [facility] [address] [id number] [place] [address]- 5636 Oct, [facility] [place] [facility] [address] [id number] [place] [address]- 7337 29 Oct, 2013 [facility] [place] [facility] [address] [id number] [place] [address]- 7435 Oct, [facility] [place] [facility] [address] [id number] [place] [address]- 1051 Oct, [facility] [place] [facility] [address] [id number] [place] [address]- 8573 Sep, [facility] [place] [facility] [address] [id number] [place] [address]- 7382 Sep, [facility] [place] [facility] [address] [id number] [place] [address]- 3490 Sep, [facility] [place] [facility] [address] [facility] [id number] [place] [address]- 4621 Sep, [facility] [place] [facility] [address] [id number] [place] [address]- 9849 Sep, [facility] [place] [facility] [address] [id number] [place] [address]- 0792 Sep, [facility] [place] [facility] [address] [facility] [id number] [place] [address]- 8947 Aug, [facility] [place] [facility] [address] [facility] [id number] [place] [address]- 6869 Aug, [facility] [place] [facility] [address] [facility] [id number] [place] [address]- 6252 Aug, [facility] [place] [facility] [address] [id number] [place] [address]- 0140 Aug, [facility] [place] [facility] [address] [id number] [place] [address]- 8526 Aug, [facility] [place] [facility] [address] [id number] [place] [address]- 4088 Aug, [facility] [place] [facility] [address] [facility] [id number] [place] [address]- 9945 Jul, [facility] [place] [facility] [address] [id number] [place] [address]- 0538 Jul, [facility] [place] [facility] [address] [id number] [place] [address]- 1199 Jul, [facility] [place] [facility] [address] [id number] [place] [address]- 9686 Jul, [facility] [place] [facility] [address] [id number] [place] [address]- 2983 Jul, [facility] [place] [facility] [address] [id number] [place] [address] Jul, [facility] [place] [facility] [address] [id number] [place] [address] Jul, [facility] [place] [facility] [address] [id number] [place] [address] Jul, [facility] [place] [facility] [address] [id number] [place] [address] Jul, [facility] [place] [facility] [address] [id number] [place] [address] Jul, [facility] [place] [facility] [address] [id number] [place] [address] Jul, [facility] [place] [facility] [address] [id number] [place] [address] Jul, [facility] [place] [facility] [address] [id number] [place] [address] Jul, [facility] [place] [facility] [address] [id number] [place] [address] Jul, [facility] [place] [facility] [address] [id number] [place] [address] Jul, [facility] [place] [facility] [address] [id number] [place] [address] Jun, [facility] [place] [facility] [address] [id number] [place] [address] 18 Jun, 2013 [facility] [address] [id number] [place] [address] Jun, [facility] [place] [facility] [address] [id number] [place] [address] Jun, [facility] [address] [id number] [place] [address] May, [facility] [place] [facility] [address] [id number] [place] [address] May, [facility] [address] [facility] [id number][place] [id number] May, [facility] [place] [facility] [address] [id number] [place] [address] May, [facility] [place] [facility] [address] [id number] [place] [address] May, [facility] [place] [facility] [address] [id number], [place] [address] May, [facility] [address] [id number] [place] [address] May, [facility] [address] [facility] [id number], [place] [address] May, [facility] [place] [facility] [address] [id number], [place] [address] May, [facility] [address] [id number][place] [id number] May, [facility] [place] [facility] [address] [id number], [place] [address] May, [facility] [address] [facility] [id number][place] [id number] May, [facility] [place] [facility] [address] [id number], [place] [address] May, [facility] [address] [facility] [id number] [place] [id number] May, [facility] [address] [facility] [id number] [place] [id number] May, IMMUNIZATIONS No Known Immunizations SOCIAL HISTORY Never Assessed REASON FOR VISIT Pain management (chronic), med refills and left side pain that wraps around to the front, PT has headaches everyday on the left side-Roxy KOLB PLAN OF CARE Activity Details Follow Up 3 Months Reason:pain mgmt VITAL SIGNS Height 63 in 2017-10-07 Weight 201.8 lbs 2017-10-07 Temperature 98.4 degrees Fahrenheit 2017-10-07 Heart Rate 66 bpm 2017-10-07 Respiratory Rate 20 2017-10-07 Oximetry on room air:94 % 2017-10-07 BMI 35.74 kg/m2 2017-10-07 Blood pressure systolic 132 mmHg 2017-10-07 Blood pressure diastolic 68 mmHg 2017-10-07 MEDICATIONS Medication Instructions Dosage Frequency Start Date End Date Duration Status Probiotic - Active Aspirin EC 81 MG Orally Once a day 1 tablet 24h 30 Active Zoloft 50 mg Orally Once a day 1 tablet 24h 90 Active Enbrel 50 MG/ML Subcutaneous once weekly on Thursday 1 ml Active Cholecalciferol 1000 UNIT Orally Once a day 1 capsule 24h Active Albuterol Sulfate (2.5 MG/3ML) 0.083% USE ONE AMPULE IN NEBULIZER EVERY 6 HOURS 25 Active Cetirizine HCl 10 MG Orally Once a day 1 tablet 24h Active Verapamil HCl ER 120 MG Orally Once a day 1 tablet in the morning with food 24h 90 Active Symbicort 160-4.5 MCG/ACT Inhalation Twice a day 2 puffs 12h 30 Active Ranitidine HCl 150 MG Orally 2 times a day 1 tablet 12h 30 days Active Gabapentin 300 MG Orally 3 times a day 2 capsules 8h 30 days Active Spiriva Respimat 2.5 MCG/ACT Inhalation Once a day 1 puff 24h Oct, 90 days Active Vitamin C 500 mg Orally Once a day 2 tablets 24h Feb, Active Pravastatin Sodium 10 mg Orally Once a day 1 tablet 24h 30 days Active Lasix 40 mg Orally Once a day 1 tablet 24h Feb, 07 days Not- Taking Montelukast Sodium 10 mg Orally Once a day at HS 1 tablet in the evening Active Oxycodone-Acetaminophen 5-325 MG Orally 2 times a day 1 tablet 12h Sep, 28 days Active Multi Adult Gummies - Active Trazodone HCl 50 mg Orally Once a day 1/2-1 tablet at bedtime as needed 24h Aug, 30 day(s) Active RESULTS No Results PROCEDURES Procedure Date Ordered Result Body Site LAB NOT BILLED BY [facility] October 07, 2017 [facility] VISIT ESTABLISHED PATIENT October 07, 2017 INSTRUCTIONS MEDICATIONS ADMINISTERED No Known Medications [...] History Exacerbation COPD 10/23/15 Hospitalization History Diarrhea, leukocytosis--[facility] 01/08/16 Hospitalization History pseudomemranous colitis, sepsis--[facility] 04/21/2016 Hospitalization History C Diff--[facility] 05/10/2016 Hospitalization History sepsis, pneumonia, diarrhea--[facility] 06/11/16 Hospitalization History recurrent cdiff, pneumonia-[facility] 07/22/16 Hospitalization History sepsis,pneumonia- [facility]
--- OUTSIDE RECORDS SUMMARY | 2018-09-02 10:42 | XMS REPORT ---
Author Author DAPHNE YUSUF Organization [facility] Address [address] [place] [address] Care Team Providers Care Sales And Service Technician Name Role Phone DAPHNE YUSUF Unavailable PROBLEMS Type Condition ICD9-CM Code TOQ24-FA Code Onset Dates Condition Status SNOMED Code Problem Hx of Clostridium difficile infection Z86.19 Active 085305093 Problem History of arthroplasty of right knee Z96.651 Active 039011586 Problem Dysphagia, unspecified dysphagia R13.10 Active 22229680 Problem Chronic pain syndrome G89.4 Active 067029885 Problem 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 571046533 Problem Anxiety F41.9 Active 16288720 Problem Leg pain, left M79.605 Active 529786776 Problem Depression, unspecified depression type F32.9 Active 00853907 Problem Iron deficiency anemia, unspecified iron deficiency anemia type D50.9 Active 15292438 Problem Anemia, unspecified type D64.9 Active 848844053 Problem Seasonal allergic rhinitis due to pollen J30.1 Active 66050780 Problem Insomnia, unspecified G47.00 Active 028301592 Problem 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 319177301 Problem History of cerebrovascular accident with current residual effects I69.90 Active 136126654 Problem Peripheral vascular disease, unspecified I73.9 Active 194884293 Problem Rheumatoid arthritis, involving unspecified site, unspecified rheumatoid factor presence M06.9 Active 06611287 Problem Other chronic pain G89.29 Active 41771757 Problem Primary insomnia F51.01 Active 0715216 Problem Chronic obstructive pulmon disease w acute lower resp infct J44.0 Active 827350932 Problem Atrial fibrillation I48.91 Active 07357842 Problem Dysthymia F34.1 Active 00345549 Problem Osteoarthritis of foot M19.079 Active 323277386 Problem Rheumatoid arthritis M06.9 Active 16673551 Problem Tobacco abuse, 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 802535910 Problem Edema R60.9 Active 335286739 Problem COPD (chronic obstructive pulmonary disease) J44.9 Active 43917964 Problem Hypertension I10 Active 70669749 ALLERGIES No Information ENCOUNTERS Encounter Location Date Diagnosis [facility] [id number] [place] [address] 50554- 4541 Mar, [facility] [id number] [place] [address] 54797- 7718 Feb, Chronic pain syndrome G89.4 [facility] [id number] [place] [address] 08759- 2070 Feb, Chronic pain syndrome G89.4 [facility] [id number] [place] [address] 97486- 1779 Jan, Chronic pain syndrome G89.4 [facility] [id number] [place] [address] 41832- 0258 Jan, [facility] [id number] [place] [address] 24763- 5517 Dec, Chronic pain syndrome G89.4 [facility] [id number] [place] [address] 35730- 7704 November, Chronic pain syndrome G89.4 [facility] [id number] [place] [address] 52198- 3608 November, [facility] [id number] [place] [address] 86405- 4043 Oct, Chronic pain syndrome G89.4 [facility] [id number] [place] [address] 34689- 0857 Oct, [facility] [id number] [place] [address] 95807- 6861 Oct, Chronic pain syndrome G89.4 [facility] [id number] [place] [address] 63620- 5104 Oct, [facility] [id number] [place] [address] 77631- 1738 Oct, [facility] [address] [place] [address] 42696- 1455 Sep, Left upper quadrant pain R10.12 ; Chronic pain syndrome G89.4 ; Left lower quadrant pain R10.32 ; Other chronic pain G89.29 ; Sacrococcygeal disorders, not elsewhere classified M53.3 and Seasonal allergic rhinitis due to pollen J30.1 [facility] [id number] [place] [address] 65497- 0964 Sep, Chronic pain syndrome G89.4 [facility] [id number] [place] [address] 33237- 6614 Sep, [facility] [id number] [place] [address] 25223- 7695 Aug, Chronic pain syndrome G89.4 [facility] [id number] [place] [address] 20288- 8777 Aug, [facility] [id number] [place] [address] 38712- 5091 Aug, Insomnia, unspecified G47.00 [facility] [id number] [place] [address] 48846- 9126 Jul, [facility] [id number] [place] [address] 68691- 8459 Jul, [facility] [id number] [place] [address] 52534- 2827 Jul, Chronic pain syndrome G89.4 [facility] [id number] [place] [address] 58365- 5972 Jun, Chronic pain syndrome G89.4 [facility] [id number] [place] [address] 137084- 1140 Jun, Chronic pain syndrome G89.4 [facility] [id number] [place] [address] 56970- 0645 May, [facility] [id number] [place] [address] 14606- 8302 May, Shortness of breath R06.02 ; Peripheral vascular disease, unspecified I73.9 ; Pain in right knee M25.561 ; Other chronic pain G89.29 ; Chest wall pain R07.89 ; Chronic pain syndrome G89.4 ; Primary insomnia F51.01 and Ear pain, left H92.02 [facility] [address] 50684- 0503 May, Anxiety F41.9 [facility] [address] 06169- 1518 Apr, Pneumonia due to infectious organism, unspecified laterality , unspecified part of lung J18.9 ; Hypoxia R09.02 ; Bradycardia R00.1 ; History of Clostridium difficile Z87.19 and Primary insomnia F51.01 [facility] [id number] [place] [address] 02400- 7319 Apr, Anxiety F41.9 [facility] [address] 58948- 1761 Apr, [facility] [id number] [place] [address] 53517- 3260 Mar, Anxiety F41.9 [facility] [id number] [place] [address] 29661- 2139 Feb, [facility] [id number] [place] [address] 69881- 1087 Feb, [facility] [id number] [place] [address] 99115- 1874 Feb, Abnormal finding on urinalysis R82.90 [facility] [id number] [place] [address] 35794- 5928 Feb, [facility] [id number] [place] [address] 17556- 9181 Feb, Shortness of breath R06.02 ; Tachycardia R00.0 ; Cough R05 ; Ill feeling R68.89 and Abnormal finding on urinalysis R82.90 [facility] [id number] [place] [address] 20514- 0646 Feb, Anxiety F41.9 [facility] [id number] [place] [address] 90134 -1171 Feb, Sore throat J02.9 and Acute diffuse otitis externa of left ear H60.312 [facility] [id number] [place] [address] 57432- 5885 Jan, [facility] [address] 35850- 7006 Jan, [facility] [address] [id number] Jan, [facility] [address] 81360- 4306 Jan, Depression, unspecified depression type F32.9 ; Chronic bronchitis, unspecified chronic bronchitis type J42 ; Chronic pain syndrome G89.4 and Anxiety F41.9 [facility] [id number] [place] [address] 33541- 7248 Jan, [facility] [id number] [place] [address] 86756- 9300 Jan, [facility] [id number] [place] [address] 85636- 5516 Jan, [facility] [id number] [place] [address] [id number] Jan, Chronic pain syndrome G89.4 [facility] [address] [place] [id number] Dec, History of right knee surgery Z98.890 [facility] [id number] [place] [address] 28831- 9393 Dec, [facility] [address] 85113- 7393 Dec, Chronic pain syndrome G89.4 [facility] [address] [address] 4524 November, Anxiety F41.9 [facility] [id number] [place] [address] 44693 -3087 16 Nov, 2016 Acute cystitis without hematuria N30.00 [facility] [id number] [place] [address] 45806 -5482 November, Fever, unspecified fever cause R50.9 and Acute cystitis without hematuria N30.00 [facility] [id number] [place] [address] 52366- 8406 November, Chronic pain syndrome G89.4 [facility] [id number] [place] [address] 09223- 9819 Oct, Anxiety F41.9 [facility] [id number] [place] [address] 84756- 8620 Oct, Chronic pain syndrome G89.4 [facility] [address] [place] [address] 13562- 3810 Oct, Chronic pain syndrome G89.4 [facility] [id number] [place] [address] 07518- 8409 Oct, [facility] [address] [place] [address] 31112- 1746 Oct, Chronic pain syndrome G89.4 ; Pain in right knee M25.561 ; History of Clostridium difficile Z87.19 ; Iron deficiency anemia, unspecified iron deficiency anemia type D50.9 ; Peripheral vascular disease, unspecified I73.9 and Atrial fibrillation I48.91 [facility] [address] [place] [address] 56843- 2461 Oct, [facility] [address] [place] [address] 14431- 4132 Oct, Chronic pain syndrome G89.4 [facility] [address] [address] 4431 Sep, [facility] [id number] [place] [address] 07547- 5164 Sep, Depression, unspecified depression type F32.9 ; Chronic bronchitis, unspecified chronic bronchitis type J42 ; Chronic pain syndrome G89.4 and Anxiety F41.9 [facility] [address] [id number] Sep, History of Clostridium difficile infection Z86.19 and History of stroke Z86.73 [facility] [id number] [place] [address] [id number] Sep, Anxiety F41.9 [facility] [id number] [place] [address] 60732- 2127 Sep, Chronic pain syndrome G89.4 [facility] [id number] [place] [address] 73592- 6518 Sep, [facility] [id number] [place] [address] [id number] Sep, [facility] [address] [place] [address] 22983- 5889 Aug, Anxiety F41.9 [facility] [address] [place] [address] 50513- 5801 Aug, Anxiety F41.9 [facility] [address] [place] [address] 70113- 4932 16 Aug, 2016 [facility] [address] [place] [address] 58668- 9460 14 Aug, 2016 Acute knee pain, unspecified laterality M25.569 [facility] [address] [place] [address] 97664- 6696 13 Aug, 2016 [facility] [address] [place] [address] 20193- 6184 09 Aug, 2016 Chronic pain syndrome G89.4 [facility] [address] [address]- 7748 Aug, [facility] [address] [place] [address] 41995- 2292 Aug, [facility] [address] [place] [address] 54423- 4022 Jul, [facility] [address] [place] [address] 85494- 9512 Jul, Anxiety F41.9 [facility] [address] [place] [address] 71802- 0546 Jul, Clostridium difficile diarrhea A04.7 [email or web address] [address] [id number] Jul, Clostridium difficile diarrhea A04.7 ; Chronic pain syndrome G89.4 ; Chronic obstructive pulmon disease w acute lower resp infct J44.0 and Pain in right knee M25.561 [facility] [id number] [place] [address] [id number] Jul, [facility] [address] [place] [address] 47353 -5821 Jul, Anxiety F41.9 and Chronic pain syndrome G89.4 [facility] [address] [place] [address] 76802- 9715 Jun, Anxiety F41.9 [facility] [address] [place] [address] 73802- 6892 Jun, Rheumatoid arthritis 714.0 [facility] [address] [place] [address] 71311- 0983 Jun, Chronic pain syndrome G89.4 [facility] [address] [place] [address] 65552- 2293 Jun, [facility] [address] [place] [address] 68367- 2674 Jun, [facility] [id number] [address]- 2368 Jun, History of pneumonia Z87.01 and History of Clostridium difficile Z87.19 [facility] [address] [place] [address] 58397- 7228 Jun, [facility] [address] [address]- 1339 May, [facility] [id number] [place] [address] 14320- 8789 May, Anxiety F41.9 [facility] [id number] [place] [address] 46323- 7429 May, Chronic pain syndrome G89.4 [facility] [id number] [place] [address] 06429- 9538 May, Chronic bronchitis, unspecified chronic bronchitis type J42 [facility] [id number] [place] [address] 62031- 2358 May, [facility] [address] [place] [address] 51656- 0153 May, C. difficile diarrhea A04.7 ; Peripheral edema R60.9 ; COPD (chronic obstructive pulmonary disease) J44.9 ; Rheumatoid arthritis, involving unspecified site, unspecified rheumatoid factor presence M06.9 ; Pain in right knee M25.561 ; Pain in left knee M25.562 and Other chronic pain G89.29 [facility] [address] [address]- 9304 May, [facility] [address] [address]- 2986 May, [facility] [id number] [place] [address] 99408- 9002 May, Anxiety F41.9 [facility] [address] [address]- 8565 Apr, [facility] [id number] [address]- 4455 Apr, Chronic pain syndrome G89.4 [facility] [address], [place] [address]- 5721 Apr, Leg pain, left M79.605 [facility] [address] [address]- 1682 14 Apr, 2016 [facility] [id number] [place] [address] 34558- 6280 Apr, [facility] [id number] [address]- 8589 Apr, [facility] [id number] [place] [address] 66555- 1591 28 Mar, 2016 Chronic pain syndrome G89.4 [facility] [address] [address]- 5230 Mar, Acute frontal sinusitis, recurrence not specified J01.10 [facility] [address] [address]- 6015 20 Mar, 2016 Iron deficiency anemia, unspecified iron deficiency anemia type D50.9 ; Rheumatoid arthritis with positive rheumatoid factor, involving unspecified site M05.9 and Depression, unspecified depression type F32.9 [facility] [address] [address]- 4012 13 Mar, 2016 Iron deficiency anemia, unspecified iron deficiency anemia type D50.9 ; Depression, unspecified depression type F32.9 and Rheumatoid arthritis with positive rheumatoid factor, involving unspecified site M05.9 [facility] [address] [address]- 1146 Mar, [facility] [address] [address]- 9950 Mar, [facility] [address] [address]- 0060 Feb, Chronic pain syndrome G89.4 [facility] [id number] [place] [address] 84642- 6041 Feb, 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 ; Status post CVA Z86.73 ; Hemiplegia G81.90 and Anemia, unspecified type D64.9 [facility] [id number] [place] [address] 80976- 6835 Feb, [facility] [id number] [place] [address] 85303- 9125 Feb, Anemia, unspecified type D64.9 [facility] [id number] [place] [address] 93383- 7855 Feb, [facility] [id number] [place] [address] 13638- 9458 Feb, Iron deficiency anemia, unspecified iron deficiency anemia type D50.9 [facility] [id number] [place] [address] 22911- 5277 Feb, [facility] [id number] [place] [address] 49844- 3246 Feb, Chronic bronchitis, unspecified chronic bronchitis type J42 [facility] [id number] [place] [address] 47608- 5736 Feb, Iron deficiency anemia, unspecified iron deficiency anemia type D50.9 [facility] [id number] [place] [address] 29232- 9742 Feb, Chronic pain syndrome G89.4 [facility] [id number] [place] [address] 82630- 8750 Feb, Anemia, unspecified type D64.9 and Hypoxia R09.02 [facility] [id number] [place] [address] 55247- 5622 Feb, Anemia, unspecified type D64.9 [facility] [address] [place] [address] 10080- 6122 Jan, [facility] [address] [address]- 4276 Jan, Anemia, unspecified type D64.9 [facility] [id number] [place] [address] 42128- 7435 Jan, [facility] [id number] [place] [address] 97772- 1588 Jan, Anemia, unspecified type D64.9 [facility] [id number] [place] [address] 09210- 2808 Jan, Anemia, unspecified type D64.9 [facility] [id number] [place] [address] 27874- 8580 Jan, [facility] [id number] [place] [address] 93236- 6784 Jan, Anemia, unspecified type D64.9 [facility] [id number] [place] [address] 42690- 0775 Jan, [facility] [id number] [place] [address] 12441- 6464 Jan, [facility] [id number] [place] [address] 73159- 4092 Jan, Chronic pain syndrome G89.4 [facility] [id number] [place] [address] 84900- 8751 Jan, Anemia, unspecified type D64.9 [facility] [address] [place] [address] 65728- 9569 Jan, Dysthymia F34.1 ; Cervicalgia M54.2 ; Fatigue, unspecified type R53.83 and Depression, unspecified depression type F32.9 [facility] [address] [address]- 9713 Dec, [facility] [address] [place] [address] 29879- 7692 Dec, Anxiety F41.9 [facility] [address] [place] [address] 35167- 2161 Dec, Chronic pain syndrome G89.4 [facility] [id number] [place] [address] 54605- 0372 November, [facility] [id number] [place] [address] 39031- 8798 November, Edema R60.9 and Dizziness R42 [facility] [address] 90071- 4707 November, [facility] [address] 49782- 5425 November, [facility] [id number] [place] [address] 11344- 0556 November, COPD (chronic obstructive pulmonary disease) J44.9 ; Increased tracheal secretions J39.8 and Edema R60.9 [facility] [id number] [place] [address] 86343 -2226 Oct, [facility] [id number] [place] [address] 18475 -6984 28 Oct, 2015 Shortness of breath R06.02 and Edema R60.9 [facility] [id number] [place] [address] 33398- 6250 Oct, Chronic bronchitis, unspecified chronic bronchitis type J42 ; Peripheral vascular disease, unspecified I73.9 ; Rheumatoid arthritis M06.9 and Atrial fibrillation I48.91 [facility] [id number] [place] [address] 30310- 7910 Oct, [facility] [address] 97064- 1177 Oct, [facility] [id number] [place] [address] 07899- 1907 Oct, [facility] [id number] [place] [address] 25826- 0169 Oct, [facility] [id number] [address] Oct, COPD exacerbation J44.1 [facility] [id number] [place] [address] 31335- 7851 Sep, [facility] [id number] [place] [address] 67438- [phone] Sep, [facility] [id number] [place] [address] [id number]- 4121 Sep, [facility] [id number] [place] [address] [phone]- 7304 Aug, [facility] [id number] [place] [address] 23094- 9404 Aug, 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 and PVD (peripheral vascular disease ) I73.9 [facility] [id number] [place] [address] 59712- 6237 Aug, Bronchitis J40 ; COPD (chronic obstructive pulmonary disease ) J44.9 and Dysthymia F34.1 [facility] [id number] [place] [address] 01184- 9612 Aug, [facility] [id number] [place] [address] 83350- 7099 Jul, [facility] [id number] [place] [address] 02289- 5149 Jul, [facility] [id number] [place] [address] 79496- 3954 Jul, [facility] [id number] [place] [address] 52354- 7009 Jun, [facility] [id number] [place] [address] 72290- 9675 Jun, [facility] [id number] [place] [address] 99070- 0181 Jun, Peripheral vascular disease I73.9 [facility] [id number] [place] [address] [id number]- [id number] Jun, [facility] [address] [id number] [place] [address] 42893- 8826 Jun, [facility] [id number] [place] [address] 193472- 9697 Jun, Leg pain, left M79.605 ; Dysphagia, unspecified dysphagia R13.10 ; Insomnia, unspecified type G47.00 ; PVD (peripheral vascular disease) I73.9 and 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 [facility] [id number] [place] [address] 25376- 2334 May, [facility] [id number] [place] [address] 43482- 8044 May, [facility] [id number] [place] [address] 87411- 9345 May, [facility] [id number] [place] [address] 36532- 4407 May, [facility] [id number] [place] [address] 34248- 9706 May, [facility] [id number] [place] [address] 36253- 4474 Apr, [facility] [id number] [place] [address] 59239- 4848 Apr, [facility] [id number] [place] [address] 05014- 3396 Mar, [facility] [id number] [place] [address] 080133- 2255 Mar, [facility] [id number] [place] [address] 36815- 1761 Feb, [facility] [id number] [address] 5826 Feb, Nicotine abuse 305.1 ; Arthralgia 719.40 and 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 [facility] [address] [address] 1772 Feb, [facility] [address] [address] 0762 Jan, [facility] [id number] [place] [address] 21337- 0852 Jan, [facility] [id number] [place] [address] 60988- 4203 Jan, [facility] [id number] [place] [address] 96912- 3345 Jan, [facility] [id number] [place] [address] 91895- 8064 Jan, 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 ; Rheumatoid arthritis 714.0 ; Hypertension 401.9 ; GERD (gastroesophageal reflux disease) 530.81 ; Nicotine addiction 305.1 and Leukocytosis 288.60 [facility] [address] [address]- 1198 Jan, [facility] [address] [address]- 2157 Jan, [facility] [address] [address]- 5118 Jan, [facility] [address] [address]- 5911 Jan, [facility] [address] [address]- 5674 Jan, [facility] [address] [address]- 4255 Dec, [facility] [address] [address]- 9019 Dec, [facility] [address] [address]- 6668 Dec, [facility] [id number] [place] [address] 353168- 6283 Dec, [facility] [id number] [place] [address] 97377- 4065 November, [facility] [id number] [place] [address] 18609- 1255 November, [facility] [id number] [place] [address] 23166- 5180 November, Shortness of breath 786.05 [facility] [id number] [place] [address] 02241- 0144 November, Rheumatoid arthritis 714.0 [facility] [id number] [place] [address] 16107- 4381 November, 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 [facility] [id number] [place] [address] 21695- 8672 November, Neuropathy 355.9 ; Insomnia 780.52 ; Dysthymia 300.4 ; Shortness of breath 786.05 ; Rheumatoid arthritis 714.0 and Nausea 787.02 [facility] [id number] [place] [address] 79514- 2618 November, [facility] [id number] [place] [address] 97351- 0462 November, [facility] [id number] [place] [address] 13359- 0743 Oct, [facility] [id number] [place] [address] 95558- 6801 Oct, [facility] [id number] [place] [address] 62443- 5936 Oct, [facility] [id number] [place] [address] 10740- 4259 Oct, [facility] [place] [facility] [address] [id number] [place] [address]- 6530 Sep, [facility] [place] [facility] [address] [id number] [place] [address]- 4797 Sep, [facility] [place] [facility] [address] [id number] [place] [address]- 4654 Sep, [facility] [place] [facility] [address] [id number] [place] [address]- 5663 Sep, [facility] [place] [facility] [address] [id number] [place] [address]- 2269 Sep, [facility] [place] [facility] [address] [id number] [place] [address]- 5829 Sep, [facility] [place] [facility] [address] [facility] [id number] [place] [address]- 8542 Sep, [facility] [place] [facility] [address] [id number] [place] [address]- 0390 Sep, [facility] [place] [facility] [address] [id number] [place] [address]- 7971 Aug, [facility] [place] [facility] [address] [facility] [id number] [place] [address]- 7758 Aug, [facility] [place] [facility] [address] [id number] [place] [address]- 4578 Aug, [facility] [place] [facility] [address] [id number] [address]- 2726 Aug, [facility] [place] [facility] [address] [id number] [place] [address]- 5340 Aug, [facility] [place] [facility] [address] [id number] [place] [address]- 1975 Aug, [facility] [place] [facility] [address] [facility] [id number] [place] [address]- 8202 Jul, [facility] [place] [facility] [address] [id number] [place] [address]- 6367 Jul, [facility] [address] [id number] [place] [address]- 1416 Jul, [facility] [place] [facility] [address] [id number] [place] [address]- 8748 Jul, [facility] [place] [facility] [address] [id number] [place] [address]- 1379 Jul, [facility] [place] [facility] [address] [id number] [place] [address]- 4727 Jul, [facility] [place] [facility] [address] [id number] [place] [address]- 9352 Jul, [facility] [place] [facility] [address] [id number] [place] [address]- 2563 Jul, [facility] [place] [facility] [address] [id number] [place] [address]- 9225 Jul, [facility] [place] [facility] [address] [id number] [place] [address]- 1043 Jul, [facility] [place] [facility] [address] [id number] [place] [address]- 2571 Jun, [facility] [place] [facility] [address] [id number] [place] [address]- 0874 Jun, [facility] [place] [facility] [address] [id number] [place] [address]- 1477 Jun, [facility] [place] [facility] [address] [id number] [place] [address]- 9841 Jun, [facility] [place] [facility] [address] [id number] [place] [address]- 4984 Jun, [facility] [place] [facility] [address] [id number] [place] [address]- 1497 Jun, [facility] [place] [facility] [address] [id number] [place] [address]- 5076 Jun, [facility] [place] [facility] [address] [id number] [place] [address]- 5958 Jun, [facility] [place] [facility] [address] [id number] [place] [address]- 8672 Jun, [facility] [place] [facility] [address] [id number] [place] 9074 Jun, [facility] [place] [facility] [address] [id number] [place] [address]- 0237 Jun, [facility] [place] [facility] [address] [id number] [place] [address]- 6369 Jun, [facility] [place] [facility] [address] [id number] [place] [address]- 9919 Jun, [facility] [place] [facility] [address] [id number] [place] [address]- 4458 Jun, [facility] [place] [facility] [address] [id number] [place] [address]- 7008 Jun, [facility] [place] [facility] [address] [id number] [place] [address]- 2465 Jun, [facility] [place] [facility] [address] [id number] [place] [address]- 5235 May, [facility] [place] [facility] [address] [id number] [place] [address]- 0030 May, [facility] [place] [facility] [address] [id number] [place] [address]- 6173 May, [facility] [place] [facility] [address] [id number] [place] [address]- 4321 May, [facility] [place] [facility] [address] [id number] [place] [address]- 7045 May, [facility] [place] [facility] [address] [id number] [place] [address]- 4404 May, [facility] [place] [facility] [address] [id number], [place] [address]- 1586 May, [facility] [place] [facility] [address] [id number] [place] [address]- 2353 May, [facility] [place] [facility] [address] [id number] [place] 5245 May, [facility] [place] [facility] [address] [id number] [place] [address]- 1230 Apr, [facility] [place] [facility] [address] [id number] [place] [address]- 1383 Apr, [facility] [place] [facility] [address] [id number] [place] [address]- 6409 Apr, [facility] [place] [facility] [address] [id number] [place] [address]- 4275 Apr, [facility] [place] [facility] [address] [id number] [place] [address]- 3999 Apr, [facility] [place] [facility] [address] [id number] [place] [address]- 9786 Apr, [facility] [place] [facility] [address] [id number] [place] [address]- 8514 Apr, [facility] [place] [facility] [address] [id number] [place] [address]- 8539 Apr, [facility] [place] [facility] [address] [id number], [place] [address]- 1688 Apr, [facility] [place] [facility] [address] [id number], [place] [address]- 5242 Apr, [facility] [place] [facility] [address] [id number] [place] [address]- 1355 Apr, [facility] [place] [facility] [address] [id number], [place] [address]- 7620 Apr, [facility] [place] [facility] [address] [id number] [place] [address]- 7575 Mar, [facility] [place] [facility] [address] [id number] [place] [address]- 7839 22 Mar, 2013 [facility] [place] [facility] [address] [id number] [place] [address]- 6056 Mar, 2013 [facility] [place] [facility] [address] [id number] [place] [address]- 2546 Mar, 2013 [facility] [place] [facility] [address] [id number] [place] [address]- 9406 Mar, 2013 [facility] [place] [facility] [address] [id number] [place] [address]- 5172 Mar, 2013 [facility] [place] [facility] [address] [id number] [place] [address]- 9022 Mar, 2013 [facility] [place] [facility] [address] [id number] [place] [address]- 2357 Mar, 2013 [facility] [place] [facility] [address] [id number] [place] [address]- 3493 Mar, 2013 [facility] [place] [facility] [address] [id number] [place] [address]- 8244 Mar, [facility] [place] [facility] [address] [id number] [place] [address]- 2908 Feb, [facility] [place] [facility] [address] [id number] [place] [address]- 2656 Feb, [facility] [place] [facility] [address] [id number] [place] [address]- 2547 Feb, [facility] [place] [facility] [address] [id number] [place] [address]- 2541 Feb, [facility] [place] [facility] [address] [id number] [place] [address]- 1355 Feb, [facility] [place] [facility] [address] [id number] [place] [address]- 9146 Feb, [facility] [place] [facility] [address] [id number] [place] [address]- 3073 Feb, [facility] [place] [facility] [address] [id number] [place] [address]- 7283 Feb, [facility] [place] [facility] [address] [id number] [place] [address]- 0702 Feb, [facility] [place] [facility] [address] [id number] [place] [address]- 0190 Feb, [facility] [place] [facility] [address] [id number] [place] [address]- 8919 Feb, [facility] [place] [facility] [address] [id number] [place] [address]- 1481 Feb, [facility] [place] [facility] [address] [id number] [place] [address]- 3236 Feb, [facility] [place] [facility] [address] [id number] [place] [address]- 2525 Feb, [facility] [place] [facility] [address] [id number] [place] [address]- 3943 Feb, [facility] [place] [facility] [address] [id number] [place] [address]- 4965 Feb, [facility] [place] [facility] [address] [id number] [place] [address]- 7251 Jan, [facility] [place] [facility] [address] [id number] [place] [address]- 2498 Jan, [facility] [place] [facility] [address] [id number] [place] [address]- 9067 Jan, [facility] [place] [facility] [address] [id number] [place] [address]- 1346 Jan, [facility] [place] [facility] [address] [id number] [place] [address]- 8598 Jan, [facility] [place] [facility] [address] [id number] [place] [address]- 5440 Jan, [facility] [place] [facility] [address] [id number] [place] [address]- 4600 Dec, [facility] [place] [facility] [address] [id number] [place] [address]- 6201 Dec, [facility] [place] [facility] [address] [id number] [place] [address]- 3016 Dec, [facility] [place] [facility] [address] [id number] [place] [address]- 6076 Dec, [facility] [place] [facility] [address] [id number] [place] [address]- 1368 Dec, [facility] [place] [facility] [address] [id number] [place] [address]- 1018 Dec, [facility] [place] [facility] [address] [id number] [place] [address]- 0859 Dec, [facility] [place] [facility] [address] [id number] [place] [address]- 5903 Dec, [facility] [place] [facility] [address] [id number] [place] [address]- 3269 November, [facility] [place] [facility] [address] [id number] [place] [address]- 9014 November, [facility] [place] [facility] [address] [id number] [place] [address]- 8538 November, [facility] [place] [facility] [address] [id number] [place] [address]- 9020 November, [facility] [place] [facility] [address] [id number] [place] [address]- 3676 November, [facility] [place] [facility] [address] [id number] [place] [address]- 8687 November, [facility] [place] [facility] [address] [id number] [place] [address]- 2207 Oct, [facility] [place] [facility] [address] [id number] [place] [address]- 8160 Oct, [facility] [place] [facility] [address] [id number] [place] [address]- 3910 Oct, [facility] [place] [facility] [address] [id number] [place] [address]- 4701 Oct, [facility] [place] [facility] [address] [id number] [place] [address]- 9156 Sep, [facility] [place] [facility] [address] [id number] [place] [address]- 0907 Sep, [facility] [place] [facility] [address] [id number] [place] [address]- 1913 Sep, [facility] [place] [facility] [address] [id number] [place] [address]- 6261 Sep, [facility] [place] [facility] [address] [facility] [id number] [place] [address]- 1611 Sep, [facility] [place] [facility] [address] [id number] [place] [address]- 4376 Sep, [facility] [place] [facility] [address] [id number] [place] [address]- 8038 Aug, [facility] [place] [facility] [address] [facility] [id number] [place] [address]- 8398 Aug, [facility] [place] [facility] [address] [facility] [id number] [place] [address]- 0362 Aug, [facility] [place] [facility] [address] [id number] [place] [address]- 9720 Aug, [facility] [place] [facility] [address] [id number] [place] [address]- 8524 Aug, [facility] [place] [facility] [address] [id number] [place] [address]- 9898 Aug, [facility] [place] [facility] [address] [facility] [id number] [place] [address]- 1988 Jul, [facility] [place] [facility] [address] [id number], [place] [address]- 0095 Jul, [facility] [address] [id number] [place] [address]- 6370 Jul, [facility] [place] [facility] [address] [id number] [place] [address]- 5581 Jul, [facility] [place] [facility] [address] [id number] [place] [address]- 9981 Jul, [facility] [place] [facility] [address] [id number] [place] [address]- 7251 Jul, [facility] [place] [facility] [address] [id number] [place] [address]- 3272 Jul, [facility] [place] [facility] [address] [id number] [place] [address]- 6247 Jul, [facility] [place] [facility] [address] [id number] [place] [address]- 3118 Jul, [facility] [place] [facility] [address] [id number] [place] [address]- 2461 Jul, [facility] [place] [facility] [address] [id number] [place] [address]- 9898 Jul, [facility] [place] [facility] [address] [id number] [place] [address]- 6220 Jul, [facility] [place] [facility] [address] [id number] [place] [address]- 9474 Jul, [facility] [place] [facility] [address] [id number] [place] [address]- 2802 Jul, [facility] [place] [facility] [address] [id number] [place] [address]- 6558 Jul, [facility] [place] [facility] [address] [id number] [place] [address]- 3145 Jun, [facility] [place] [facility] [address] [id number] [place] [address]- 1955 Jun, [facility] [place] [facility] [address] [id number] [place] [address]- 5923 Jun, [facility] [address] [id number] [place] [address]- 1834 Jun, [facility] [place] [facility] [address] [id number] [place] [address]- 5453 May, [facility] [place] [facility] [address] [id number] [place] [address]- 5410 May, [facility] [address] [id number] [id number] May, [facility] [place] [facility] [address] [id number] [place] [address]- 1540 May, [facility] [place] [facility] [address] [id number] [place] [address] May, [facility] [place] [facility] [address] [facility] [id number] [address] May, [facility] [place] [facility] [address] [id number], [place] [address] May, [facility] [place] [facility] [address] [facility] [id number][place] [address] May, [facility] [place] [facility] [address] [id number], [place] [address] May, [facility] [address] [id number][place] [id number] May, [facility] [place] [facility] [address] [id number], [place] [address] May, [facility] [address] [id number][place] [id number] May, [facility] [place] [facility] [address] [id number][place] [id number] May, 2013 [facility] [address] [id number][place] [id number] May, [facility] [place] [facility] [address] [facility] [id number] [place] [address] May, IMMUNIZATIONS No Known Immunizations SOCIAL HISTORY Never Assessed REASON FOR VISIT referral/Appointment needed PLAN OF CARE VITAL SIGNS MEDICATIONS Unknown [...] leukocytosis--[facility] 01/08/16 Hospitalization History pseudomemranous colitis, sepsis--[facility] 04/21/2016 Hospitalization History C Diff--[facility] 05/10/2016 Hospitalization History sepsis, pneumonia, diarrhea--[facility] 06/11/16 Hospitalization History recurrent cdiff, pneumonia-[facility] 07/22/16 Hospitalization History sepsis,pneumonia- [facility]
--- NOTE | 2018-09-02 10:54 | ED Lower Extremity ---
General Chief Complaint: Lower Extremity Stated Complaint: LEFT LEG PAIN Nursing Triage Note: PT CO OF L FOOT PAIN, PT HAS AMPUTAION OF 1/2 OF L FOOT FROM CIRCULATION STATES SON. FOOT IS WARM TO TOUCH AND PINK. PT RATES PAIN 10/10 Nursing Sepsis Screen: No Definite Risk Source: patient Exam Limitations: no limitations History of Present Illness Date Seen by Provider: Sep 02, 2018 Time Seen by Provider: 10:51 Initial Comments To ER with reports of pain to the left foot. 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 C/o pain at the stub. No known injury. Describes pain as burning sensation. Onset: just prior to arrival Severity: moderate Pain/Injury Location: left foot Method of Injury: unknown Modifying Factors: Worse With Movement Allergies and Home Medications Allergies Coded Allergies: levofloxacin (Verified Allergy, Severe, C-DIFF, 12/17/16) ceftriaxone (Verified Allergy, Unknown, 12/17/16) Home Medications Albuterol Sulfate 2.5 Mg/3 Ml Vial.neb, 2.5 MG NEB Q6H PRN for SHORTNESS OF BREATH, (Reported) Alprazolam 0.5 Mg Tablet, 0.5 MG PO HS, (Reported) Apixaban 5 Mg Tablet, 5 MG PO BID . Prescribed by: PALOMO SALAZAR on 12/03/17 142 Ascorbate Calcium 500 Mg Tablet, 1,000 MG PO DAILY, (Reported) Aspirin 81 Mg Tablet.dr, 81 MG PO HS, (Reported) Azithromycin 250 Mg Tablet, 250 MG PO DAILY Prescribed by: JAMES MENDEZ on 04/13/17 1113 Budesonide/Formoterol Fumarate 10.2 Gm Hfa.aer.ad, 2 PUFF PO BID, (Reported) Cefpodoxime Proxetil 200 Mg Tablet, 200 MG PO BID Prescribed by: JAMES MENDEZ on 04/13/17 1113 Cetirizine HCl 10 Mg Tablet, 10 MG PO DAILY, (Reported) Cholecalciferol (Vitamin D3) 1,000 Unit Tablet, 1,000 UNIT PO DAILY, (Reported) Diclofenac Sodium 100 Gm Gel..gram., TP BID, (Reported) Diltiazem HCl 240 Mg Cap.er.24h, 240 MG PO DAILY . Prescribed by: PALOMO SALAZAR on 12/03/17 142 Doxepin HCl 25 Mg Capsule, 25 MG PO HS, (Reported) Esomeprazole Magnesium 40 Mg Cap, 40 MG PO DAILY, (Reported) Etanercept 50 Mg/1 Ml Syringe, 50 MG INJ Tu, (Reported) Gabapentin 300 Mg Capsule, 600 MG PO TID, (Reported) TAKES 2 (300MG) CAPSULES L.acidoph & ParacaseiB.lactis 1 Each Capsule, 1 CAP PO BID, (Reported) Metoprolol Tartrate 25 Mg Tablet, 12.5 MG PO BID Prescribed by: JAMES MENDEZ on 04/13/17 1113 Montelukast Sodium 10 Mg Tablet, 10 MG PO HS, (Reported) Multivitamin 1 Each Tab.chew, 2 TAB.CHEW PO DAILY, (Reported) Oxycodone HCl/Acetaminophen 1 Each Tablet, 1 TAB PO TID PRN for PAIN-MODERATE, ( Reported) Pravastatin Sodium 10 Mg Tablet, 10 MG PO HS, (Reported) Prednisone 10 Mg Tab.ds.pk, 10 MG PO DAILY Take 6 tabs(60mg)daily,decrease by 1 tab(10MG)daily. Prescribed by: JAMES MENDEZ on 04/13/17 1113 Ranitidine HCl 150 Mg Tablet, 150 MG PO BID, (Reported) Sertraline HCl 50 Mg Tablet, 50 MG PO DAILY, (Reported) Tiotropium [place] 4 Gm Mist.inhal, 2.5 MCG PO DAILY, (Reported) Verapamil HCl 120 Mg Tablet.er, 120 MG PO DAILY, (Reported) Patient Home Medication List Home Medication List Reviewed: Yes Review of Systems Constitutional: see HPI EENTM: see HPI Respiratory: no symptoms reported Cardiovascular: no symptoms reported Genitourinary: no symptoms reported Musculoskeletal: see HPI Skin: no symptoms reported Psychiatric/Neurological: No Symptoms Reported Past Urlgfva-Chkbzv-Nmebyi Hx Patient Social History Alcohol Use: Denies Use Recreational Drug Use: No Smoking Status: Former Smoker Type Used: Cigarettes Former Smoker, Quit: Dec 11, 2014 2nd Hand Smoke Exposure: No Recent Foreign Travel: No Contact w/Someone Who Travel: No Recent Infectious Disease Expo: No Recent Hopitalizations: No Immunizations Up To Date Tetanus Booster (TDap): Unknown PED Vaccines UTD: Yes Date of Pneumonia Vaccine: Aug 05, 2013 Date of Influenza Vaccine: Apr 13, 2017 Seasonal Allergies Seasonal Allergies: Yes Past Medical History Surgeries: Yes (heart ablation, mouth cancer, feeding tube,peripheral stents) Joint Replacement, Orthopedic, Vascular Surgery Respiratory: Yes (O2 2L NC AT NIGHT AND PRN) COPD, Emphysema Currently Using CPAP: No Currently Using BIPAP: No Cardiac: Yes (CAROTID DISEASE--COMPLETE OCCLUSION OF LEFT CAROTID) High Cholesterol, Hypertension, Peripheral Vascular Neurological: Yes (DYSPHAGIA, DYSARTHRIA; RIGHT SIDE WEAKNESS--POST CVA) Dementia, Stroke Reproductive Disorders: No Female Reproductive Disorders: Denies [employer] History: Menopausal Sexually Transmitted Disease: No HIV/AIDS: No Genitourinary: No Gastrointestinal: Yes (feeding tube) C-Diff Musculoskeletal: Yes (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 ) Arthritis, Rheumatoid Arthritis Endocrine: No HEENT: Yes (GLASSES) Dysphagia, Tinnitis Loss of Vision: Bilateral Hearing Impairment: Denies Cancer: No Psychosocial: Yes Sleep Difficulties, Anxiety, Depression Integumentary: No Blood Disorders: No Adverse Reaction/Blood Tranf: No Family Medical History Cancer 09 SISTER Family history: Arthritis 09 BROTHER 09 SISTER Family history: Cardiovascular disease 09 SISTER Family history: Thyroid disorder 09 SISTER Malignant neoplasm of lung 09 SISTER Heart Disease Physical Exam Vital Signs Vital Signs - First Documented 09/02/18 10:33 Temp 97.2 Pulse 70 Resp 18 B/P (MAP) 160/85 (110) Pulse Ox 97 Capillary Refill : Less Than 3 Seconds Height, Weight, BMI Height: 5'2.00" Weight: 190lbs. 0.0oz. [id number]; 31.9 BMI Method:Stated General Appearance: WD/WN, no apparent distress HEENT: PERRL/EOMI, normal ENT inspection Neck: non-tender, full range of motion Respiratory: no respiratory distress, no accessory muscle use Hips: bilateral hip non-tender, bilateral hip normal inspection, bilateral hip normal range of motion Legs: bilateral leg non-tender, bilateral leg normal inspection, bilateral leg normal range of motion Knees: bilateral knee non-tender, bilateral knee normal inspection, bilateral knee normal range of motion Ankles: bilateral ankle non-tender, bilateral ankle normal inspection, bilateral ankle normal range of motion Feet: left foot pain, left foot other (foot is without erythema ulcer or draining wound. It is warm.) Neurologic/Psychiatric: alert, normal mood/affect, oriented x 3 Skin: normal color, warm/dry Progress/Results/Core Measures Results/Orders My Orders Orders - PALOMO SALAZAR APRN Oxycodone/Apap 5/325mg Tablet (Percocet (09/02/18 11:00) Ketorolac Injection (Toradol Injection) (09/02/18 11:00) Foot, Left, 3 Views (09/02/18 10:50) Medications Given in ED Current Medications Medications Dose Ordered Sig/Terrance Route Start Time Stop Time Status Last Admin Dose Admin Ketorolac Tromethamine 30 mg ONCE ONCE IM 09/02/18 11:00 09/02/18 11:01 DC 09/02/18 11:30 30 MG Oxycodone/ Acetaminophen 1 tab ONCE ONCE PO 09/02/18 11:00 09/02/18 11:01 DC 09/02/18 11:30 1 TAB Vital Signs/I&O 09/02/18 10:33 Temp 97.2 Pulse 70 Resp 18 B/P (MAP) 160/85 (110) Pulse Ox 97 Blood Pressure Mean: 110 Departure Impression Primary Impression: Left foot pain Disposition: HOME, SELF-CARE Condition: Stable Departure-Patient Inst. Decision time for Depature: 11:23 Referrals: [facility] [place] ([place]/Family) Primary Care Physician Patient Instructions: General (DC) Add. Discharge Instructions: 1. Return to ER for any concerns 2. Follow-up with your doctor. Call today to make an appointment to be seen either tomorrow or next week. All discharge instructions reviewed with patient and/or family. Voiced understanding. Scripts Oxycodone HCl/Acetaminophen (Percocet 5-325 mg Tablet) 1 Each Tablet 1 TAB PO Q4H for PAIN-MODERATE MDD 6, #20 TAB Prov: PALOMO SALAZAR APRN 09/02/18 PALOMO SALAZAR APRN Sep 02, 2018 10:54
[2018-09-02] MEDS ORDERED: KETOROLAC 60 MG/2 ML VIAL IM ONE (11:00)
[2018-09-02] MEDS ORDERED: oxyCODONE/APAP 5/325MG (PERCOCET 5) TABLET PO ONE (11:00)
--- OUTSIDE RECORDS SUMMARY | 2018-09-02 11:03 | XMS REPORT ---
Author Author DAPHNE YUSUF Organization [facility] Address [address] [place] [address] Care Team Providers Care Panel Gluer Name Role Phone DAPHNE YUSUF Unavailable PROBLEMS Type Condition ICD9-CM Code VAD56-XD Code Onset Dates Condition Status SNOMED Code Problem Hx of Clostridium difficile infection Z86.19 Active 091090146 Problem History of arthroplasty of right knee Z96.651 Active 464855436 Problem Dysphagia, unspecified dysphagia R13.10 Active 48122863 Problem Chronic pain syndrome G89.4 Active 059450088 Problem 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 368277828 Problem Anxiety F41.9 Active 11097980 Problem Leg pain, left M79.605 Active 239695369 Problem Depression, unspecified depression type F32.9 Active 17661082 Problem Iron deficiency anemia, unspecified iron deficiency anemia type D50.9 Active 81885031 Problem Anemia, unspecified type D64.9 Active 825829524 Problem Seasonal allergic rhinitis due to pollen J30.1 Active 49614415 Problem Insomnia, unspecified G47.00 Active 647345080 Problem 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 833654096 Problem History of cerebrovascular accident with current residual effects I69.90 Active 000202457 Problem Peripheral vascular disease, unspecified I73.9 Active 471066345 Problem Rheumatoid arthritis, involving unspecified site, unspecified rheumatoid factor presence M06.9 Active 94421549 Problem Other chronic pain G89.29 Active 14617371 Problem Primary insomnia F51.01 Active 7518793 Problem Chronic obstructive pulmon disease w acute lower resp infct J44.0 Active 207643229 Problem Atrial fibrillation I48.91 Active 48295139 Problem Dysthymia F34.1 Active 33816385 Problem Osteoarthritis of foot M19.079 Active 412068244 Problem Rheumatoid arthritis M06.9 Active 61778018 Problem Tobacco abuse, 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 [address] [address] 26 Mar, 2018 [facility] [id number] [address] 5792 Mar, Chronic pain syndrome G89.4 [facility] [id number] [place] [address] 42105- 8277 Feb, Chronic pain syndrome G89.4 [facility] [id number] [place] [address] 73227- 3923 Feb, Chronic pain syndrome G89.4 [facility] [id number] [place] [address] 10592- 8845 Jan, Chronic pain syndrome G89.4 [facility] [id number] [place] [address] 80476- 4530 Jan, [facility] [id number] [place] [address] 64457- 0316 Dec, Chronic pain syndrome G89.4 [facility] [id number] [place] [address] 98357- 0877 November, Chronic pain syndrome G89.4 [facility] [id number] [place] [address] 32555- 1196 November, [facility] [id number] [place] [address] 83325- 2757 Oct, Chronic pain syndrome G89.4 [facility] [id number] [place] [address] 40668- 9739 16 Oct, 2017 [facility] [id number] [place] [address] 66955- 9079 Oct, Chronic pain syndrome G89.4 [facility] [id number] [address] 3780 Oct, [facility] [id number] [place] [address] 61134- 8234 Oct, [facility] [id number] [place] [address] 62721- 4459 Sep, Left upper quadrant pain R10.12 ; Chronic pain syndrome G89.4 ; Left lower quadrant pain R10.32 ; Other chronic pain G89.29 ; Sacrococcygeal disorders, not elsewhere classified M53.3 and Seasonal allergic rhinitis due to pollen J30.1 [facility] [id number] [place] [address] 89018- 8805 Sep, Chronic pain syndrome G89.4 [facility] [id number] [place] [address] 70376- 1161 Sep, [facility] [id number] [place] [address] 54390- 0207 Aug, Chronic pain syndrome G89.4 [facility] [id number] [place] [address] 91289- 5599 Aug, [facility] [id number] [place] [address] 51827- 8741 Aug, Insomnia, unspecified G47.00 [facility] [id number] [place] [address] 98264- 0392 Jul, [facility] [id number] [place] [address] 56765- 9089 Jul, [facility] [id number] [place] [address] 21444- 5466 Jul, Chronic pain syndrome G89.4 [facility] [id number] [place] [address] 54949- 0251 Jun, Chronic pain syndrome G89.4 [facility] [id number] [place] [address] 81106- 8017 Jun, Chronic pain syndrome G89.4 [facility] [address] [address]- 4577 May, [facility] [id number] [place] [address] 06971- 5701 May, Shortness of breath R06.02 ; Peripheral vascular disease, unspecified I73.9 ; Pain in right knee M25.561 ; Other chronic pain G89.29 ; Chest wall pain R07.89 ; Chronic pain syndrome G89.4 ; Primary insomnia F51.01 and Ear pain, left H92.02 [facility] [id number] [place] [address] 86076- 2622 May, Anxiety F41.9 [facility] [id number] [place] [address] 89058- 2910 Apr, Pneumonia due to infectious organism, unspecified laterality , unspecified part of lung J18.9 ; Hypoxia R09.02 ; Bradycardia R00.1 ; History of Clostridium difficile Z87.19 and Primary insomnia F51.01 [facility] [id number] [place] [address] 70896- 7231 Apr, Anxiety F41.9 [facility] [id number] [place] [address] 31248- 1799 Apr, [facility] [id number] [place] [address] 28985- 6727 Mar, Anxiety F41.9 [facility] [id number] [place] [address] 98914- 4305 Feb, [facility] [id number] [place] [address] 38374- 4555 Feb, [facility] [id number] [place] [address] 36726- 0436 Feb, Abnormal finding on urinalysis R82.90 [facility] [id number] [place] [address] 05684- 0809 Feb, [facility] [id number] [place] [address] 95049- 4389 Feb, Shortness of breath R06.02 ; Tachycardia R00.0 ; Cough R05 ; Ill feeling R68.89 and Abnormal finding on urinalysis R82.90 [facility] [id number] [place] [address] 47701- 8158 Feb, Anxiety F41.9 [facility] [id number] [place] [address] 67325 -1827 Feb, Sore throat J02.9 and Acute diffuse otitis externa of left ear H60.312 [facility] [address] 79633- 9797 Jan, [facility] [address] 24738- 0375 Jan, [facility] [address] [id number] Jan, [facility] [id number] [place] [address] 65459- 5063 Jan, Depression, unspecified depression type F32.9 ; Chronic bronchitis, unspecified chronic bronchitis type J42 ; Chronic pain syndrome G89.[address] [facility] [id number] [place] [address] 32950- 0058 Jan, [facility] [id number] [place] [address] 03314- 7314 Jan, [facility] [id number] [place] [address] 57812- 4547 Jan, [facility] [address] [id number] Jan, Chronic pain syndrome G89.4 [facility] [address] [id number] Dec, History of right knee surgery Z98.890 [facility] [id number] [place] [address] 40583- 1304 Dec, [facility] [address] [address]- 8760 Dec, Chronic pain syndrome G89.4 [facility] [address] [address]- 0587 November, Anxiety F41.9 [facility] [id number] [place] [address] 20602 -1209 November, Acute cystitis without hematuria N30.00 [facility] [id number] [place] [address] 23208 -1271 November, Fever, unspecified fever cause R50.9 and Acute cystitis without hematuria N30.00 [facility] [id number] [place] [address] 46933- 1715 November, Chronic pain syndrome G89.4 [facility] [id number] [place] [address] 21558- 4285 Oct, Anxiety F41.9 [facility] [id number] [place] [address] 97982- 9349 Oct, Chronic pain syndrome G89.4 [facility] [address] [address]- 6559 Oct, Chronic pain syndrome G89.4 [facility] [address] [address]- 8528 Oct, [facility] [address] [address]- 1787 Oct, Chronic pain syndrome G89.4 ; Pain in right knee M25.561 ; History of Clostridium difficile Z87.19 ; Iron deficiency anemia, unspecified iron deficiency anemia type D50.9 ; Peripheral vascular disease, unspecified I73.9 and Atrial fibrillation I48.91 [facility] [address] [address]- 5931 Oct, [facility] [address] [address]- 5060 Oct, Chronic pain syndrome G89.4 [facility] [id number] [place] [address] 08736- 7113 Sep, [facility] [address] [address]- 3087 Sep, Depression, unspecified depression type F32.9 ; Chronic bronchitis, unspecified chronic bronchitis type J42 ; Chronic pain syndrome G89.4 and Anxiety F41.9 [facility] [address] [id number] Sep, History of Clostridium difficile infection Z86.19 and History of stroke Z86.73 [facility] [id number] [place] [address] [id number] Sep, Anxiety F41.9 [facility] [id number] [place] [address] 80008- 7397 Sep, Chronic pain syndrome G89.4 [facility] [id number] [place] [address] 87024- 6100 Sep, [facility] [id number] [place] [address] [id number] Sep, [facility] [id number] [place] [address] 94421- 7944 Aug, Anxiety F41.9 [facility] [id number] [place] [address] 60204- 9238 Aug, Anxiety F41.9 [facility] [address] [address]- 2719 16 Aug, 2016 [facility] [id number] [place] [address] 33916- 8832 14 Aug, 2016 Acute knee pain, unspecified laterality M25.569 [facility] [address] [address]- 7111 13 Aug, 2016 [facility] [address] [address]- 1786 Aug, Chronic pain syndrome G89.4 [facility] [id number] [place] [address] 38636- 1533 Aug, [facility] [id number] [place] [address] 12446- 9274 Aug, [facility] [id number] [place] [address] 97755- 3617 Jul, [facility] [id number] [place] [address] 02725- 5277 Jul, Anxiety F41.9 [facility] [id number] [place] [address] 35994- 5299 Jul, Clostridium difficile diarrhea A04.7 [facility] [address] [id number] Jul, Clostridium difficile diarrhea A04.7 ; Chronic pain syndrome G89.4 ; Chronic obstructive pulmon disease w acute lower resp infct J44.0 and Pain in right knee M25.561 [facility] [id number] [place] [address] [id number] Jul, [facility] [id number] [place] [address] 55958 -1029 Jul, Anxiety F41.9 and Chronic pain syndrome G89.4 [facility] [id number] [place] [address] 06627- 9981 Jun, Anxiety F41.9 [facility] [id number] [place] [address] 08637- 0482 Jun, Rheumatoid arthritis 714.0 [facility] [id number] [place] [address] 16288- 4192 Jun, Chronic pain syndrome G89.4 [facility] [id number] [place] [address] 67527- 2651 Jun, [facility] [address] [address]- 0767 [address], [address] [facility] [id number] [place] [address] 04451- 1836 12 Jun, 2016 History of pneumonia Z87.01 and History of Clostridium difficile Z87.19 [facility] [address] [address]- 1497 Jun, [facility] [id number] [place] [address] 92282- 3117 May, [facility] [id number] [place] [address] 44729- 2079 May, Anxiety F41.9 [facility] [id number] [place] [address] 92588- 6388 May, Chronic pain syndrome G89.4 [facility] [id number] [place] [address] 92886- 3823 May, Chronic bronchitis, unspecified chronic bronchitis type J42 [facility] [address] [address]- 9354 May, [facility] [id number] [place] [address] 09106- 7769 May, C. difficile diarrhea A04.7 ; Peripheral edema R60.9 ; COPD (chronic obstructive pulmonary disease) J44.9 ; Rheumatoid arthritis, involving unspecified site, unspecified rheumatoid factor presence M06.9 ; Pain in right knee M25.561 ; Pain in left knee M25.562 and Other chronic pain G89.29 [facility] [address] [address]- 6213 May, [facility] [id number] [place] [address] 25008- 6942 May, [facility] [address] [address]- 0101 May, Anxiety F41.9 [facility] [address] [address]- 1221 Apr, [facility] [address] [address]- 0593 Apr, Chronic pain syndrome G89.4 [facility] [address] [address]- 9685 Apr, Leg pain, left M79.605 [facility] [id number] [place] [address] 97935- 5904 [address], [address] [facility] [address] [address]- 7403 Apr, [facility] [id number] [place] [address] 23946- 7710 Apr, [facility] [address] [address]- 4492 28 Mar, 2016 Chronic pain syndrome G89.4 [facility] [address] [address]- 4305 22 Mar, 2016 Acute frontal sinusitis, recurrence not specified J01.10 [facility] [address] [address]- 8050 20 Mar, 2016 Iron deficiency anemia, unspecified iron deficiency anemia type D50.9 ; Rheumatoid arthritis with positive rheumatoid factor, involving unspecified site M05.9 and Depression, unspecified depression type F32.9 [facility] [address] [address]- 9922 13 Mar, 2016 Iron deficiency anemia, unspecified iron deficiency anemia type D50.9 ; Depression, unspecified depression type F32.9 and Rheumatoid arthritis with positive rheumatoid factor, involving unspecified site M05.9 [facility] [address] [address]- 6909 [address], [address] [facility] [address] [address]- 1280 Mar, [facility] [id number] [place] [address] 66995- 7605 Feb, Chronic pain syndrome G89.4 [facility] [id number] [place] [address] 97835- 7408 30 Feb, 2016 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 ; Status post CVA Z86.73 ; Hemiplegia G81.90 and Anemia, unspecified type D64.9 [facility] [id number] [place] [address] 10038- 5418 Feb, [facility] [id number] [place] [address] 04679- 4654 Feb, Anemia, unspecified type D64.9 [facility] [id number] [place] [address] 00700- 5827 Feb, [facility] [id number] [place] [address] 11789- 4705 Feb, Iron deficiency anemia, unspecified iron deficiency anemia type D50.9 [facility] [id number] [place] [address] 80996- 8877 Feb, [facility] [id number] [place] [address] 11810- 4619 Feb, Chronic bronchitis, unspecified chronic bronchitis type J42 [facility] [id number] [place] [address] 22213- 3262 Feb, Iron deficiency anemia, unspecified iron deficiency anemia type D50.9 [place] [facility] [id number] [place] [address] 64227- 2264 Feb, Chronic pain syndrome G89.4 [facility] [id number] [place] [address] 04888- 6939 Feb, Anemia, unspecified type D64.[address] [facility] [id number] [place] [address] 07107- 9521 Feb, Anemia, unspecified type D64.9 [facility] [address] [address]- 8690 Jan, [facility] [id number] [place] [address] 86871- 3902 Jan, Anemia, unspecified type D64.9 [facility] [address] [address]- 4914 Jan, [facility] [id number] [place] [address] 99205- 0755 Jan, Anemia, unspecified type D64.9 [facility] [id number] [place] [address] 32737- 8634 Jan, Anemia, unspecified type D64.9 [facility] [id number] [place] [address] 54421- 3176 Jan, [facility] [id number] [place] [address] 99403- 2637 Jan, Anemia, unspecified type D64.9 [facility] [id number] [place] [address] 39891- 3398 Jan, [facility] [id number] [place] [address] 83518- 5984 Jan, [facility] [address] [address]- 9828 Jan, Chronic pain syndrome G89.4 [facility] [id number] [place] [address] 89727- 4461 Jan, Anemia, unspecified type D64.9 [facility] [address] [address]- 7493 Jan, Dysthymia F34.1 ; Cervicalgia M54.2 ; Fatigue, unspecified type R53.83 and Depression, unspecified depression type F32.9 [facility] [address] [address]- 0839 Dec, [facility] [id number] [place] [address] 13103- 2539 14 Dec, [address] [facility] [address] 23284- 5653 08 Dec, 2015 Chronic pain syndrome G89.4 [facility] [id number] [place] [address] 02966- 9027 November, [facility] [address] 54022- 4472 November, Edema R60.9 and Dizziness R42 [address] [address] 68143- 4309 November, [facility] [address] 64389- 5199 November, [facility] [address] 60917- 4328 November, COPD (chronic obstructive pulmonary disease) J44.9 ; Increased tracheal secretions J39.8 and Edema R60.9 [facility] [address] 07918 -7461 Oct, [facility] [id number] [place] [address] 18225 -0025 Oct, Shortness of breath R06.02 and Edema R60.9 [facility] [id number] [place] [address] 44966- 6751 Oct, Chronic bronchitis, unspecified chronic bronchitis type J42 ; Peripheral vascular disease, unspecified I73.9 ; Rheumatoid arthritis M06.[address]48.91 [facility] [id number] [place] [address] 25979- 4627 Oct, [facility] [id number] [place] [address] 54720- 3514 Oct, [facility] [address] 55242- 6914 Oct, [facility] [address] [address]- 4980 Oct, [facility] [address] [address] -3602 Oct, COPD exacerbation J44.1 [facility] [id number] [address] Sep, [facility] [id number] [place] [address] Sep, [facility] [id number] [place] [address] Sep, [facility] [id number] [place] [address] Aug, [facility] [id number] [place] [address] Aug, 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 and PVD (peripheral vascular disease ) I73.9 [facility] [id number] [place] [address] Aug, Bronchitis J40 ; COPD (chronic obstructive pulmonary disease ) J44.[address] [facility] [id number] [address] Aug, [facility] [id number] [address] Jul, [facility] [id number] [address] Jul, [facility] [id number] [address] Jul, [facility] [id number] [address] Jun, [facility] [id number] [address] Jun, [facility] [id number] [place] [address] Jun, Peripheral vascular disease I73.9 [facility] [id number] [place] [address] Jun, [facility] [id number] [place] [address]- [address] Jun, [facility] [id number] [place] [address] Jun, Leg pain, left M79.605 ; Dysphagia, unspecified dysphagia R13.10 ; Insomnia, unspecified type G47.00 ; PVD (peripheral vascular disease) I73.9 and 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 [facility] [id number] [place] [address] May, [facility] [id number] [place] [address] May, [facility] [id number] [place] [address]- [address] May, [facility] [id number] [place] [address]- [address] May, [facility] [address] [id number] [address] May, [facility] [id number] [place] [address] 44719- 6242 Apr, [facility] [id number] [place] [address] 61200- 4191 Apr, [facility] [id number] [place] [address] 827638- 5398 Mar, [facility] [id number] [address] Mar, [facility] [id number] [address] Feb, [facility] [id number] [place] [address] 70115- 2264 Feb, Nicotine abuse 305.1 ; Arthralgia 719.40 and 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 [facility] [id number] [address] Feb, [facility] [id number] [place] [address] 22068- 4689 Jan, [facility] [id number] [place] [address] 41987- 7800 Jan, [facility] [id number] [place] [address] 09553- 6651 Jan, [facility] [id number] [place] [address] 07737- 3402 Jan, [facility] [id number] [address] 2308 Jan, 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 ; Rheumatoid arthritis 714.0 ; Hypertension 401.9 ; GERD (gastroesophageal reflux disease) 530.81 ; Nicotine addiction 305.[address] [facility] [id number] [address] 8196 Jan, [facility] [id number] [address] 1172 Jan, [facility] [id number] [address] 4027 Jan, [facility] [id number] [address] 0816 Jan, [facility] [id number] [address] 8[address] Jan, [facility] [id number] [address] 6428 Dec, [facility] [id number] [address] 7638 Dec, [facility] [id number] [place] [address] 638331- 6427 Dec, [facility] [id number] [address] 7004 Dec, [facility] [id number] [place] [address] 126124- 1464 November, [facility] [id number] [place] [address] 972174- 7891 November, [facility] [id number] [place] [address] 418857- 5825 November, Shortness of breath 786.05 [facility] [id number] [place] [address] 60284- 4876 November, Rheumatoid arthritis 714.0 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 [id number] [place] [address] 05774- 8812 November, Neuropathy 355.9 ; Insomnia 780.52 ; Dysthymia 300.4 ; Shortness of breath 786.05 ; Rheumatoid arthritis 714.[address] [facility] [id number] [address] 4534 November, [facility] [id number] [address] 6866 November, [facility] [id number] [place] [address] [id number]- 0253 Oct, [facility] [id number] 6029 Oct, [facility] [id number] [place] [address] 69205- 4113 14 Oct, 2014 [facility] [place] [facility] [address] [id number] [place] [address]- 1256 13 Oct, 2014 [facility] [place] [facility] [address] [id number] [place] [address]- 2528 Sep, [facility] [place] [facility] [address] [facility] [id number] [place] [address]- 3277 Sep, [facility] [place] [facility] [address] [id number] [place] [address]- 7074 Sep, [facility] [place] [facility] [address] [id number] [place] [address]- 0515 Sep, [facility] [place] [facility] [address] [facility] [id number] [place] [address]- 9755 Sep, [facility] [place] [facility] [address] [facility] [id number] [place] [address]- 1721 Sep, [facility] [place] [facility] [address] [facility] [id number] [place] [address]- 8628 Sep, [facility] [place] [facility] [address] [facility] [id number] [place] [address]- 1287 Sep, [facility] [place] [facility] [address] [facility] [id number] [place] [address]- 6157 Aug, [facility] [place] [facility] [address] [facility] [id number] [address]- 0181 Aug, 2014 [facility] [place] [facility] [address] [facility] [id number] [place] [address]- 8846 Aug, 2014 [facility] [place] [facility] [address] [id number] [place] [address]- 3912 Aug, 2014 [facility] [place] [facility] [address] [facility] [id number] [place] [address]- 8770 Aug, [facility] [place] [facility] [address] [facility] [id number] [place] [address]- 3161 Aug, 2014 [facility] [place] [facility] [address] [id number] [place] [address]- 7838 Jul, [facility] [place] [facility] [address] [id number] [place] [address]- 3879 Jul, [facility] [place] [facility] [address] [id number] [place] [address]- 9487 Jul, [facility] [place] [facility] [address] [id number] [place] [address]- 6828 Jul, [facility] [place] [facility] [address] [id number] [place] [address]- 8126 Jul, [facility] [place] [facility] [address] [id number] [place] [address]- 1106 Jul, [facility] [place] [facility] [address] [id number] [place] [address]- 7191 Jul, [facility] [place] [facility] [address] [id number] [place] [address]- 8985 Jul, [facility] [place] [facility] [address] [id number] [place] [address]- 9562 Jul, [facility] [place] [facility] [address] [id number] [place] [address]- 8713 Jul, [facility] [place] [facility] [address] [id number] [place] [address]- 1273 Jun, [facility] [place] [facility] [address] [id number] [place] [address]- 1837 Jun, [facility] [place] [facility] [address] [id number] [place] [address]- 0005 Jun, [facility] [place] [facility] [address] [id number] [place] [address]- 0430 Jun, [facility] [place] [facility] [address] [id number] [place] [address]- 7523 Jun, [facility] [place] [facility] [address] [id number] [place] [address]- 3993 Jun, [facility] [place] [facility] [address] [id number] [place] [address]- 7555 Jun, [facility] [place] [facility] [address] [id number] [place] [address]- 1626 Jun, [facility] [place] [facility] [address] [id number] [place] [address]- 7636 Jun, [facility] [place] [facility] [address] [id number] [place] [address]- 3474 Jun, [facility] [place] [facility] [address] [id number] [place] [address]- 2073 Jun, [facility] [place] [facility] [address] [id number] [place] [address]- 0014 Jun, [facility] [place] [facility] [address] [id number] [place] [address]- 1856 Jun, [facility] [place] [facility] [address] [id number] [place] [address]- 5754 Jun, [facility] [place] [facility] [address] [id number] [place] [address]- 6950 Jun, [facility] [place] [facility] [address] [id number] [place] [address]- 0673 Jun, [facility] [place] [facility] [address] [id number] [place] [address]- 5074 May, [facility] [place] [facility] [address] [id number] [place] [address]- 7235 May, [facility] [place] [facility] [address] [id number] [place] [address]- 8950 May, [facility] [place] [facility] [address] [id number] [place] [address]- 5960 May, [facility] [place] [facility] [address] [id number] [place] [address]- 3229 May, [facility] [place] [facility] [address] [id number] [place] [address]- 8764 May, [facility] [place] [facility] [address] [id number] [place] [address]- 9957 May, [facility] [place] [facility] [address] [id number] [place] [address]- 9878 May, [facility] [place] [facility] [address] [id number] [place] [address]- 7574 May, [facility] [place] [facility] [address] [id number] [place] [address]- 5160 Apr, [facility] [place] [facility] [address] [id number] [place] [address]- 7302 Apr, [facility] [place] [facility] [address] [id number] [place] [address]- 7240 Apr, [facility] [place] [facility] [address] [id number] [place] [address]- 4358 Apr, [facility] [place] [facility] [address] [id number] [place] [address]- 4686 Apr, [facility] [place] [facility] [address] [id number] [place] [address]- 4315 Apr, [facility] [place] [facility] [address] [facility] [id number] [place] [address]- 4135 Apr, [facility] [place] [facility] [address] [id number] [place] [address]- 7600 Apr, [facility] [place] [facility] [address] [id number] [place] [address]- 7464 Apr, [facility] [place] [facility] [address] [id number] [place] [address]- 8970 Apr, [facility] [place] [facility] [address] [id number] [place] [address]- 0065 Apr, [facility] [place] [facility] [address] [id number] [place] [address]- 9031 Apr, [facility] [place] [facility] [address] [id number] [place] [address]- 9913 Mar, 2013 [facility] [place] [facility] [address] [id number] [place] [address]- 3140 Mar, 2013 [facility] [place] [facility] [address] [id number] [place] [address]- 8362 Mar, 2013 [facility] [place] [facility] [address] [id number] [place] [address]- 3254 Mar, 2013 [facility] [place] [facility] [address] [id number] [place] [address]- 4444 Mar, [facility] [place] [facility] [address] [id number] [place] [address]- 4678 Mar, 2013 [facility] [place] [facility] [address] [id number] [place] [address]- 8052 Mar, 2013 [facility] [place] [facility] [address] [id number] [place] [address]- 7767 Mar, [facility] [place] [facility] [address] [id number] [place] [address]- 2113 Mar, [facility] [place] [facility] [address] [id number] [place] [address]- 4260 Mar, [facility] [place] [facility] [address] [id number] [place] [address]- 1635 Feb, [facility] [place] [facility] [address] [id number] [place] [address]- 9424 Feb, [facility] [place] [facility] [address] [id number] [place] [address]- 8265 Feb, [facility] [place] [facility] [address] [id number] [place] [address]- 5912 Feb, [facility] [place] [facility] [address] [id number] [place] [address]- 9426 Feb, [facility] [place] [facility] [address] [id number] [place] [address]- 3630 Feb, [facility] [place] [facility] [address] [id number] [place] [address]- 2370 Feb, [facility] [place] [facility] [address] [id number] [place] [address]- 2791 Feb, [facility] [place] [facility] [address] [id number] [place] [address]- 3911 Feb, [facility] [place] [facility] [address] [id number] [place] [address]- 2377 Feb, [facility] [place] [facility] [address] [id number] [place] [address]- 0905 Feb, [facility] [place] [facility] [address] [id number] [place] [address]- 1741 Feb, [facility] [place] [facility] [address] [id number] [place] [address]- 6273 Feb, [facility] [place] [facility] [address] [id number] [place] [address]- 3639 Feb, [facility] [place] [facility] [address] [id number] [place] [address]- 1216 Feb, [facility] [place] [facility] [address] [id number] [place] [address]- 6331 Feb, [facility] [place] [facility] [address] [id number] [place] [address]- 6293 Jan, [facility] [place] [facility] [address] [id number] [place] [address]- 3827 Jan, [facility] [place] [facility] [address] [id number] [place] [address]- 6467 Jan, [facility] [place] [facility] [address] [id number] [place] [address]- 9515 Jan, [facility] [place] [facility] [address] [id number] [place] [address]- 3622 Jan, [facility] [place] [facility] [address] [id number] [place] [address]- 9211 Jan, [facility] [place] [facility] [address] [id number] [place] [address]- 8368 Dec, [facility] [place] [facility] [address] [id number] [place] [address]- 3976 Dec, [facility] [place] [facility] [address] [id number] [place] [address]- 9039 Dec, [facility] [place] [facility] [address] [id number] [place] [address]- 1336 Dec, [facility] [place] [facility] [address] [id number] [place] [address]- 9913 Dec, [facility] [place] [facility] [address] [id number] [place] [address]- 6610 Dec, [facility] [place] [facility] [address] [id number] [place] [address]- 8825 Dec, [facility] [place] [facility] [address] [id number] [place] [address]- 9314 Dec, [facility] [place] [facility] [address] [id number] [place] [address]- 8473 November, [facility] [place] [facility] [address] [id number] [place] [address]- 2595 November, [facility] [place] [facility] [address] [id number] [place] [address]- 0420 November, [facility] [place] [facility] [address] [id number] [place] [address]- 5845 November, [facility] [place] [facility] [address] [id number] [place] [address]- 1742 November, [facility] [place] [facility] [address] [id number] [place] [address]- 1519 November, [facility] [place] [facility] [address] [id number] [place] [address]- 6593 Oct, [facility] [place] [facility] [address] [id number] [place] [address]- 6638 Oct, [facility] [place] [facility] [address] [id number] [place] [address]- 2127 Oct, [facility] [place] [facility] [address] [id number] [place] [address]- 2292 Oct, [facility] [place] [facility] [address] [id number] [place] [address]- 9404 Sep, [facility] [place] [facility] [address] [id number] [place] [address]- 5688 Sep, [facility] [place] [facility] [address] [id number] [place] [address]- 3496 Sep, [facility] [place] [facility] [address] [id number] [place] [address]- 6287 Sep, [facility] [place] [facility] [address] [id number] [place] [address]- 5288 Sep, [facility] [place] [facility] [address] [id number] [place] [address]- 8439 Sep, [facility] [place] [facility] [address] [id number] [place] [address]- 2764 Aug, [facility] [place] [facility] [address] [id number] [place] [address]- 5393 Aug, [facility] [place] [facility] [address] [id number] [place] [address]- 3614 Aug, [facility] [place] [facility] [address] [id number] [place] [address]- 2731 Aug, [facility] [place] [facility] [address] [id number] [place] [address]- 5207 Aug, [facility] [place] [facility] [address] [id number] [place] [address]- 8611 Aug, [facility] [place] [facility] [address] [id number] [place] [address]- 6808 Jul, [facility] [address] [id number] [place] [address]- 3962 Jul, [facility] [address] [id number] [place] [address]- 9626 Jul, [facility] [address] [id number] [place] [address]- 1709 Jul, [facility] [address] [id number] [place] [address]- 5200 Jul, [facility] [address] [id number] [place] [address]- 6244 Jul, [facility] [address] [id number] [place] [address]- 7660 Jul, [facility] [address] [id number] [place] [address]- 2947 Jul, [facility] [address] [id number] [place] [address]- 3468 Jul, [facility] [address] [id number] [place] [address]- 5535 Jul, [facility] [address] [id number] [place] [address]- 0318 Jul, [facility] [address] [id number] [place] [address]- 0535 Jul, [facility] [address] [id number] [place] [address]- 1710 Jul, [facility] [place] [facility] [address] [id number] [place] [address]- 6438 Jul, [facility] [place] [facility] [address] [id number] [place] [address]- 9085 Jul, [facility] [address] [id number] [place] [address]- 7350 Jun, [facility] [place] [facility] [address] [id number] [place] 9012 18 Jun, 2013 [facility] [place] [facility] [address] [id number] [place] 5732 Jun, [facility] [address] [id number] [place] [address]- 7254 Jun, [facility] [place] [facility] [address] [id number] [place] [address]- 9920 May, [facility] [address] [id number] [place] 5864 May, [facility] [address] [facility] [id number] [id number] May, [facility] [address] [id number] [place] [address]- 4657 May, [facility] [place] [facility] [address] [id number] [place] [address]- 7794 May, [facility] [address] [id number] [place] [address]- 6634 May, [facility] [address] [id number] [place] [address]- 2160 May, [facility] [address] [id number] [place] [address]- 3516 May, [facility] [place] [facility] [address] [id number] [place] [address]- 0470 May, [facility] [address] [id number][place] [id number] May, [facility] [place] [facility] [address] [id number] [place] [address]- 7582 May, [facility] [address] [facility] [id number][place] [id number] May, [facility] [place] [facility] [address] [id number] [place] [address] May, [facility] [address] [facility] [id number] [place] [id number] May, [facility] [address] [facility] [id number] [place] [id number] May, IMMUNIZATIONS No Known Immunizations SOCIAL HISTORY Never Assessed REASON FOR VISIT Percocet on hold PLAN OF CARE VITAL SIGNS MEDICATIONS Medication Instructions Dosage Frequency Start Date End Date Duration Status Oxycodone-Acetaminophen 5-325 MG Orally 2 times a day 1 tablet 12h Jan, 28 days Active RESULTS No Results [...] leukocytosis--[facility] 01/08/16 Hospitalization History pseudomemranous colitis, sepsis--[facility] 04/21/2016 Hospitalization History C Diff--[facility] 05/10/2016 Hospitalization History sepsis, pneumonia, diarrhea--[facility] 06/11/16 Hospitalization History recurrent cdiff, pneumonia-[facility] 07/22/16 Hospitalization History sepsis,pneumonia- [facility]
--- NOTE | 2018-09-02 11:43 | Diagnostic Imaging Report ---
INDICATION: Left foot pain, patient has had prior partial amputation of the left foot. TIME OF EXAM: 11:13 AM FINDINGS: Post surgical changes to left foot is noted. There has been amputation at the level of the mid metatarsals. Resection margins appear to be smooth. No bony destructive changes are seen to suggest osteomyelitis. Overlying soft tissues at the stump are unremarkable. No soft tissue gas is seen. There is generalized demineralization. Midfoot and hindfoot are unremarkable apart from a large plantar calcaneal spur. There are no fractures. IMPRESSION: Postsurgical and chronic changes. No acute bony abnormality is detected. Dictated by: Dictated on workstation # [id number]
[2018-09-02] MEDS ORDERED: OXYC1TAB87 PO (12:06)
[2018-09-02 12:59] VITALS: BP 160/85
== END 2018-09-02 12:59 | disposition home or self-care (01) ==
LOC: EDUNIT# 10:27 → ER 10:29
DX: M79.672 Pain in left foot (principal); J43.9 Emphysema, unspecified; E78.00 Pure hypercholesterolemia, unspecified; I10 Essential (primary) hypertension; I73.9 Peripheral vascular disease, unspecified; F03.90 Unspecified dementia, unspecified severity, without behavioral disturbance, psychotic disturbance, mood disturbance, and anxiety; F41.9 Anxiety disorder, unspecified; F32.9 Major depressive disorder, single episode, unspecified; M06.9 Rheumatoid arthritis, unspecified; Z89.432 Acquired absence of left foot; Z87.19 Personal history of other diseases of the digestive system; Z82.49 Family history of ischemic heart disease and other diseases of the circulatory system; Z80.1 Family history of malignant neoplasm of trachea, bronchus and lung; Z86.73 Personal history of transient ischemic attack (TIA), and cerebral infarction without residual deficits; Z99.81 Dependence on supplemental oxygen; Z88.0 Allergy status to penicillin; Z79.82 Long term (current) use of aspirin; Z79.52 Long term (current) use of systemic steroids; Z87.891 Personal history of nicotine dependence; Z79.51 Long term (current) use of inhaled steroids; Z79.01 Long term (current) use of anticoagulants; Z95.820 Peripheral vascular angioplasty status with implants and grafts; Z98.890 Other specified postprocedural states; Z85.819 Personal history of malignant neoplasm of unspecified site of lip, oral cavity, and pharynx
CPT/HCPCS: 73630; 96372

== ENCOUNTER → 2018-09-16 | Outpatient (CLI) | payer MEDICARE, MEDICAID ==
[~2018-09-16] MED LIST changes: -VANC250C4 PO; +VANC250C5 PO; +VERA120T10 PO; -VERA120T84 PO
[2018-09-16 13:41] LABS: CALCIUM 9.7 MG/DL (8.5-10.1); CREATININE SERUM 1.03 MG/DL (0.60-1.30); POTASSIUM 4.5 MMOL/L (3.6-5.0)
--- NOTE | 2018-09-16 16:47 | Diagnostic Imaging Report ---
PROCEDURE: CT neck soft tissue without contrast. TECHNIQUE: Multiple contiguous axial images were obtained through the neck without the use of intravenous contrast. INDICATION: Lymphadenopathy. Patient has a history of cancer of the mouth. No prior CT studies of the neck are available for comparison. The study is significantly compromised due to absence of intravenous contrast. The visualized intracranial structures are unremarkable. Posterior nasopharynx and oropharynx are unremarkable. Parapharyngeal fat planes are preserved. Epiglottis and larynx appear unremarkable. No thyroid mass is detected. Submandibular glands are not well seen. The parotid glands appear to be symmetric bilaterally. There are surgical clips in the soft tissues of the neck bilaterally likely from a lymph node dissection. No definite posterior cervical lymphadenopathy is seen. No definite jugulodigastric lymphadenopathy seen, however, study is limited without IV contrast. No fluid collections are identified. IMPRESSION: Postsurgical changes to the neck. No definite cervical lymphadenopathy is seen, although the study is compromised without IV contrast. For future imaging, postcontrast imaging should be performed of the neck if the patient is clinically able to receive IV contrast, particularly in a patient with history of head and neck cancer. Dictated by: Dictated on workstation # [id number]
== END ==
LOC: RAD 13:07
PROVIDERS: ATTEND Nurse Practitioner Community Health
DX: R59.0 Localized enlarged lymph nodes (principal); Z85.819 Personal history of malignant neoplasm of unspecified site of lip, oral cavity, and pharynx; Z98.890 Other specified postprocedural states
CPT/HCPCS: 36415; 70490; 80048

== ENCOUNTER → 2018-09-21 | Outpatient (CLI) | payer MEDICARE, MEDICAID ==
[~2018-09-21] MED LIST changes: +IOHEXOL 350 MG/ML 100 ML (OMNIPAQUE 350) VIAL IV ONE; +NS 100 ML (IVPB) BAG IV ONE; +RECEIVED CONTRAST 20 ML VIAL IV SCH
[2018-09-21 11:27] LABS: CREATININE SERUM 0.99 MG/DL (0.60-1.30)
--- NOTE | 2018-09-21 12:40 | Diagnostic Imaging Report ---
PROCEDURE: CT neck soft tissue with contrast. TECHNIQUE: Multiple contiguous axial images were obtained through the neck after the administration of contrast. INDICATION: Lymphadenopathy. Correlation is made with a noncontrast CT from 09/16/2018. FINDINGS: Visualized intracranial structures are unremarkable. Posterior nasopharynx and oropharynx are unremarkable. Parapharyngeal fat planes are preserved. Epiglottis and larynx appear unremarkable. Thyroid is unremarkable apart from a tiny low-density nodule in the right lobe measuring 4 mm. The parotid glands appear to be symmetric bilaterally. Submandibular glands may be surgically absent. There are numerous surgical clips in the submandibular region. No cervical lymphadenopathy is seen. No fluid collection is identified. The parotid, carotid and coordinator of health services spaces are unremarkable. IMPRESSION: Post surgical changes to the neck. No cervical lymphadenopathy is detected. Dictated by: Dictated on workstation # [id number]
== END ==
LOC: RAD 10:33
PROVIDERS: ATTEND Nurse Practitioner Community Health
DX: R59.0 Localized enlarged lymph nodes (principal); Z98.890 Other specified postprocedural states
CPT/HCPCS: 36415; 70491; 82565; 84520

== ENCOUNTER 2018-10-30 18:16 | Emergency (ER) | payer MEDICARE, MEDICAID ==
[~2018-10-30] VITALS: Ht 157.5 cm; Wt 81.6 kg
[~2018-10-30 18:16] MED LIST changes: -IOHEXOL 350 MG/ML 100 ML (OMNIPAQUE 350) VIAL IV ONE; -NS 100 ML (IVPB) BAG IV ONE; -RECEIVED CONTRAST 20 ML VIAL IV SCH
[2018-10-30] MEDS ORDERED: NS IV 1000 ML 1,000 ML IV STA (18:28)
[2018-10-30 18:48] LABS: BASOPHILS # (AUTO) 0.1 10^3/uL (0.0-0.1); BASOPHILS % (AUTO) 0 % (0-10); EOSINOPHILS # (AUTO) 0.1 10^3/uL (0.0-0.3); EOSINOPHILS % (AUTO) 1 % (0-10); HEMATOCRIT 38 % (35-52); HEMOGLOBIN 12.5 G/DL (11.5-16.0); LYMPHOCYTES % (AUTO) 23 % (12-44); MEAN CORPUSCULAR HEMOGLOBIN 32 PG (25-34); MEAN CORPUSCULAR HGB CONC 33 G/DL (32-36); MEAN CORPUSCULAR VOLUME 96 FL (80-99); MEAN PLATELET VOLUME 9.9 FL (7.4-10.4); MONOCYTES % (AUTO) 9 % (0-12); NEUTROPHILS # (AUTO) 14.5 X 10^3 (1.8-7.8); NEUTROPHILS % (AUTO) 67 % (42-75); PLATELET COUNT 273 10^3/uL (130-400); RED CELL DISTRIBUTION WIDTH 12.5 % (10.0-14.5); WHITE BLOOD COUNT 21.7 10^3/uL (4.3-11.0)
[2018-10-30 18:59] LABS: BILIRUBIN,URINE 1+ (NEGATIVE); CLARITY,URINE CLEAR; COLOR,URINE YELLOW; GLUCOSE, URINE (UA) NEGATIVE (NEGATIVE); KETONES,URINE 1+ (NEGATIVE); LEUKOCYTE ESTERASE ,URINE 2+ (NEGATIVE); NITRITE,URINE NEGATIVE (NEGATIVE); PH,URINE 5 (5-9); PROTEIN,URINE 2+ (NEGATIVE); UROBILINOGEN,URINE 1 MG/DL (NORMAL)
[2018-10-30 18:59] LABS: PROTHROMBIN TIME PATIENT 13.3 SEC (12.2-14.7)
--- NOTE | 2018-10-30 18:59 | ED General ---
General Chief Complaint: Fever-Adult/Adol Stated Complaint: FEVER Source of Information: Patient Exam Limitations: Physical Impairments History of Present Illness Date Seen by Provider: Oct 30, 2018 Time Seen by Provider: 18:22 Initial Comments Here with report of fever this afternoon. Apparently has had cough recently and some difficulty with urination. She is hurting on her back she believes is her right side. Does have history of vascular disease and CVA which affects her ability to give her history. Son is at bedside with her and assists with history. Does have history of sepsis a few times in the past. Denies significant breathing problems other than the cough. No diarrhea. Timing/Duration: 1-3 Hours (fever), 2-3 Days (not feeling well and back pain with problems going to the bathroom.) Severity: Moderate Associated Systoms: No Chest Pain; Cough, Fever/Chills, Malaise; No Nausea/ Vomiting, No Shortness of Air; Weakness Allergies and Home Medications Allergies Coded Allergies: levofloxacin (Verified Allergy, Severe, C-DIFF, 10/30/18) ceftriaxone (Verified Allergy, Unknown, 10/30/18) Home Medications Albuterol Sulfate 2.5 Mg/3 Ml Vial.neb, 2.5 MG NEB Q6H PRN for SHORTNESS OF BREATH, (Reported) Alprazolam 0.5 Mg Tablet, 0.5 MG PO HS, (Reported) Apixaban 5 Mg Tablet, 5 MG PO BID . Prescribed by: PALOMO SALAZAR on 12/03/17 1429 Ascorbate Calcium 500 Mg Tablet, 1,000 MG PO DAILY, (Reported) Aspirin 81 Mg Tablet.dr, 81 MG PO HS, (Reported) Azithromycin 250 Mg Tablet, 250 MG PO DAILY Prescribed by: JAMES MENDEZ on 04/13/17 111 Budesonide/Formoterol Fumarate 10.2 Gm Hfa.aer.ad, 2 PUFF PO BID, (Reported) Cefpodoxime Proxetil 200 Mg Tablet, 200 MG PO BID Prescribed by: JAMES MENDEZ on 04/13/17 111 Cetirizine HCl 10 Mg Tablet, 10 MG PO DAILY, (Reported) Cholecalciferol (Vitamin D3) 1,000 Unit Tablet, 1,000 UNIT PO DAILY, (Reported) Diclofenac Sodium 100 Gm Gel..gram., TP BID, (Reported) Diltiazem HCl 240 Mg Cap.er.24h, 240 MG PO DAILY . Prescribed by: PALOMO SALAZAR on 12/03/17 1429 Doxepin HCl 25 Mg Capsule, 25 MG PO HS, (Reported) Esomeprazole Magnesium 40 Mg Cap, 40 MG PO DAILY, (Reported) Etanercept 50 Mg/1 Ml Syringe, 50 MG INJ Tu, (Reported) Gabapentin 300 Mg Capsule, 600 MG PO TID, (Reported) TAKES 2 (300MG) CAPSULES L.acidoph & Paracasei,B.lactis 1 Each Capsule, 1 CAP PO BID, (Reported) Metoprolol Tartrate 25 Mg Tablet, 12.5 MG PO BID Prescribed by: JAMES MENDEZ on 04/13/17 1113 Montelukast Sodium 10 Mg Tablet, 10 MG PO HS, (Reported) Multivitamin 1 Each Tab.chew, 2 TAB.CHEW PO DAILY, (Reported) Oxycodone HCl/Acetaminophen 1 Each Tablet, 1 TAB PO TID PRN for PAIN-MODERATE, ( Reported) Oxycodone HCl/Acetaminophen 1 Each Tablet, 1 TAB PO Q4H Prescribed by: PALOMO SALAZAR on 09/02/18 1206 Pravastatin Sodium 10 Mg Tablet, 10 MG PO HS, (Reported) Prednisone 10 Mg Tab.ds.pk, 10 MG PO DAILY Take 6 tabs(60mg)daily,decrease by 1 tab(10MG)daily. Prescribed by: JAMES MENDEZ on 04/13/17 1113 Ranitidine HCl 150 Mg Tablet, 150 MG PO BID, (Reported) Sertraline HCl 50 Mg Tablet, 50 MG PO DAILY, (Reported) Tiotropium Kosse 4 Gm Mist.inhal, 2.5 MCG PO DAILY, (Reported) Verapamil HCl 120 Mg Tablet.er, 120 MG PO DAILY, (Reported) Patient Home Medication List Home Medication List Reviewed: Yes Review of Systems Review of Systems Constitutional: see HPI; No chills, No diaphoresis; fever, weakness EENTM: nose congestion; No throat pain Respiratory: cough; No short of breath Cardiovascular: No chest pain, No edema Gastrointestinal: No abdominal pain, No nausea, No vomiting Genitourinary: dysuria; No pain : No Musculoskeletal: back pain; No muscle pain Skin: no symptoms reported Psychiatric/Neurological: Pre-Existing Deficit; Denies Weakness Hematologic/Lymphatic: No Symptoms Reported All Other Systems Reviewed Negative Unless Noted: Yes Past Kksjnug-Jttcdx-Nvglow Hx Past Med/Social Hx: Reviewed Nursing Past Med/Soc Hx Patient Social History Alcohol Use: Denies Use Recreational Drug Use: No Smoking Status: Former Smoker Type Used: Cigarettes Former Smoker, Quit: Dec 11, 2014 2nd Hand Smoke Exposure: No Recent Foreign Travel: No Contact w/Someone Who Travel: No Recent Hopitalizations: No Immunizations Up To Date Tetanus Booster (TDap): Unknown PED Vaccines UTD: Yes Date of Pneumonia Vaccine: Aug 05, 2013 Date of Influenza Vaccine: Apr 13, 2017 Seasonal Allergies Seasonal Allergies: Yes Past Medical History Surgeries: Yes (heart ablation, mouth cancer, feeding tube,peripheral stents) Joint Replacement, Orthopedic, Vascular Surgery Respiratory: Yes (O2 2L NC AT NIGHT AND PRN) COPD, Emphysema Currently Using CPAP: No Currently Using BIPAP: No Cardiac: Yes (CAROTID DISEASE--COMPLETE OCCLUSION OF LEFT CAROTID) High Cholesterol, Hypertension, Peripheral Vascular Neurological: Yes (DYSPHAGIA, DYSARTHRIA; RIGHT SIDE WEAKNESS--POST CVA) Dementia, Stroke Reproductive Disorders: No Female Reproductive Disorders: Denies 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 ) Arthritis, Rheumatoid Arthritis Endocrine: No HEENT: Yes (GLASSES) Dysphagia, Tinnitis Loss of Vision: Bilateral Hearing Impairment: Denies Cancer: No Psychosocial: Yes Sleep Difficulties, Anxiety, Depression Integumentary: No Blood Disorders: No Adverse Reaction/Blood Tranf: No Family Medical History Reviewed Nursing Family Hx Cancer 09 SISTER Family history: Arthritis 09 BROTHER 09 SISTER Family history: Cardiovascular disease 09 SISTER Family history: Thyroid disorder 09 SISTER Malignant neoplasm of lung 09 SISTER Heart Disease Physical Exam-Suspected Sepsis Physical Exam Vital Signs Vital Signs - First Documented 10/30/18 18:20 Temp 99.4 Pulse 77 Resp 20 B/P (MAP) 127/57 (80) Pulse Ox 94 O2 Delivery Room Air Capillary Refill : Height, Weight, BMI Height: 5'2.00" Weight: 190lbs. 0.0oz. 86.185461sb; 31.9 BMI Method:Stated General Appearance: No Apparent Distress, WD/WN HEENT: PERRL/EOMI, Pharyngeal Erythema (mild), Other (to moderate nasal congestion bilateral) Neck: Non Tender, Supple Respiratory: No Respiratory Distress, Crackles (anterior upper); No Wheezing Cardiovascular: Regular Rate, Rhythm, No Murmur Gastrointestinal: Non Tender, Soft Back: Normal Inspection, No CVA Tenderness, No Vertebral Tenderness Extremity: Normal Range of Motion, Non Tender Neurologic/Psychiatric: Alert, Other (has deficit with respect to speaking is chronic. At baseline per family member) Skin: normal color, warm/dry Focused Exam Lactate Level 10/30/18 18:36: Lactic Acid Level 1.08 Lactic Acid Level Laboratory Tests Test 10/30/18 18:36 Lactic Acid Level 1.08 MMOL/L (0.50-2.00) Progress/Results/Core Measures Suspected Sepsis SIRS Temperature: Pulse: Respiratory Rate: Laboratory Tests 10/30/18 18:36: White Blood Count 21.7H Blood Pressure / Mean: 10/30/18 18:36: Lactic Acid Level 1.08 Laboratory Tests 10/30/18 18:36: Creatinine 0.93, INR Comment 1.0, Platelet Count 273, Total Bilirubin 0.9 Results/Orders Lab Results Laboratory Tests Test 10/30/18 18:36 10/30/18 18:49 Range/Units White Blood Count 21.7 H 4.3-11.0 10^3/uL Red Blood Count 3.97 L 4.35-5.85 10^6/uL Hemoglobin 12.5 11.5-16.0 G/DL Hematocrit 38 35-52 % Mean Corpuscular Volume 96 80-99 FL Mean Corpuscular Hemoglobin 32 25-34 PG Mean Corpuscular Hemoglobin Concent 33 32-36 G/DL Red Cell Distribution Width 12.5 10.0-14.5 % Platelet Count 273 130-400 10^3/uL Mean Platelet Volume 9.9 7.4-10.4 FL Neutrophils (%) (Auto) 67 42-75 % Lymphocytes (%) (Auto) 23 12-44 % Monocytes (%) (Auto) 9 0-12 % Eosinophils (%) (Auto) 1 0-10 % Basophils (%) (Auto) 0 0-10 % Neutrophils # (Auto) 14.5 H 1.8-7.8 X 10^3 Lymphocytes # (Auto) 5.0 H 1.0-4.0 X 10^3 Monocytes # (Auto) 2.0 H 0.0-1.0 X 10^3 Eosinophils # (Auto) 0.1 0.0-0.3 10^3/uL Basophils # (Auto) 0.1 0.0-0.1 10^3/uL Neutrophils % (Manual) 69 % Lymphocytes % (Manual) 24 % Monocytes % (Manual) 4 % Eosinophils % (Manual) 0 % Basophils % (Manual) 0 % Band Neutrophils 3 % Toxic Granulation 1+ Stomatocytes SLIGHT Prothrombin Time 13.3 12.2-14.7 SEC INR Comment 1.0 0.8-1.4 Activated Partial Thromboplast Time 33 24-35 SEC Sodium Level 137 135-145 MMOL/L Potassium Level 4.3 3.6-5.0 MMOL/L Chloride Level 101 98-107 MMOL/L Carbon Dioxide Level 25 21-32 MMOL/L Anion Gap 11 5-14 MMOL/L Blood Urea Nitrogen 16 7-18 MG/DL Creatinine 0.93 0.60-1.30 MG/DL Estimat Glomerular Filtration Rate 60 BUN/Creatinine Ratio 17 Glucose Level 102 70-105 MG/DL Lactic Acid Level 1.08 0.50-2.00 MMOL/L Calcium Level 9.7 8.5-10.1 MG/DL Corrected Calcium 9.9 8.5-10.1 MG/DL Total Bilirubin 0.9 0.1-1.0 MG/DL Aspartate Amino Transf (AST/SGOT) 21 5-34 U/L Alanine Aminotransferase (ALT/SGPT) 18 0-55 U/L Alkaline Phosphatase 61 40-136 U/L Total Protein 7.3 6.4-8.2 GM/DL Albumin 3.8 3.2-4.5 GM/DL Urine Color YELLOW Urine Clarity CLEAR Urine pH 5 5-9 Urine Specific [place] 1.020 1.016-1.022 Urine Protein 2+ H NEGATIVE Urine Glucose (UA) NEGATIVE NEGATIVE Urine Ketones 1+ H NEGATIVE Urine Nitrite NEGATIVE NEGATIVE Urine Bilirubin 1+ H NEGATIVE Urine Urobilinogen 1 NORMAL MG/DL Urine Leukocyte Esterase 2+ H NEGATIVE Urine RBC (Auto) NEGATIVE NEGATIVE Urine RBC NONE /HPF Urine WBC RARE /HPF Urine Squamous Epithelial Cells 2-5 /HPF Urine Crystals NONE /LPF Urine Bacteria FEW H /HPF Urine Casts NONE /LPF Urine Mucus SMALL H /LPF Urine Culture Indicated CULTURE PENDING Micro Results Microbiology 10/30/18 Influenza Types A,B Antigen (PRITI) - Final, Complete My Orders Orders - KARUK,DANA D MD Cbc With Automated Diff (10/30/18 18:28) Comprehensive Metabolic Panel (10/30/18 18:28) Blood Culture (10/30/18 18:) Sputum Culture (10/30/18 18:28) Urinalysis (10/30/18 18:28) Urine Culture (10/30/18 18:28) Protime With Inr (10/30/18:) Partial Thromboplastin Time (10/30/18:) Ed Iv/Invasive Line Start (10/30/18 18:28) Vital Signs Adult Sepsis Patie Q15M (10/30/18 18:28) O2 (10/30/18 18:28) Remove Rings In Anticipation O (10/30/18:) Lactic Acid Analyzer (10/30/18:) Ns Iv 1000 Ml (Sodium Chloride 0.9%) (10/30/18 18:28) Chest Pa/Lat (2 View) (10/30/18:28) Influenza A And B Antigens (10/30/18 18:28) Manual Differential (10/30/18 18:36) Doxycycline Hyclate Tablet (Vibramycin T (10/30/18 19:41) Dexamethasone Injection (Decadron Inject (10/30/18 19:45) Vital Signs/I&O 10/30/18 18:20 Temp 99.4 Pulse 77 Resp 20 B/P (MAP) 127/57 (80) Pulse Ox 94 O2 Delivery Room Air Capillary Refill : Progress Note : Progress Note Seen and evaluated. IV, labs, UA, chest x-ray, blood cultures and lactic acid ordered. Patient has history of multiple comorbidities and has had previous sepsis of events. Due to her difficulty with history and previous history we will do more advanced septic workup. Normal saline 1 L bolus. Monitor patient. 1941: Labs and x-ray reviewed. Overall doing okay and a little better. We will initiate doxycycline 100 mg by mouth for upper respiratory infection and bronchitis with elevated white count. Overall it appears that she safe for outpatient therapy currently. Decadron 10 mg IV for coarse lungs. All findings concerns were discussed with patient and family who agree with plan. Discharged home with return precautions. Patient verbalize understanding instructions and agreement with plan. Diagnostic Imaging Diagonstic Imaging: Xray Plain Films/CT/US/NM/MRI: chest Comments NAME: ALIYAH ROLLINS [facility] REC#: [id number] PT STATUS: REG ER : 1950 PHYSICIAN: DANA HUMPHREY MD ADMIT DATE: 10/30/18/ER Draft Date of Exam:10/30/18 CHEST PA/LAT (2 VIEW) EXAMINATION: Chest (PA and lateral). CLINICAL INDICATION: 68-year-old female, cough, congestion, fever. COMPARISON: December 03, 2017. FINDINGS: Stable overall appearance of the cardiomediastinal silhouette. There are aortic calcifications. There is no identified pneumothorax. There is no pleural effusion. There are mild linear opacities in the left midlung likely relating to subsegmental atelectasis. There are degenerative changes of the spine. IMPRESSION: 1. Mild subsegmental atelectasis in the left midlung. 2. No identified acute cardiopulmonary abnormality. Dictated on workstation # [id number] Dict: 10/30/181919 Trans: 10/30/181924 PJE [id number] Interpreted by: MIKE ALBERT MD Electronically signed by: Departure Impression Primary Impression: Upper respiratory infection Qualified Codes: J06.9 - Acute upper respiratory infection, unspecified Disposition: 01 HOME, SELF-CARE Condition: Stable Departure-Patient Inst. Decision time for Depature: 19:43 Referrals: [facility] (PCP/Family) Primary Care Physician Patient Instructions: Fever, Adult (DC), Acute Bronchitis, Adult (DC) Add. Discharge Instructions: All discharge instructions reviewed with patient and/or family. Voiced understanding. You may take ibuprofen 600 mg every 8 hours as needed for pain. You may also take Tylenol/acetaminophen 1000 mg every 8 hours as needed for pain. Drink plenty of fluids. You should follow-up with your DrJoss on Thursday or Thursday for recheck and further evaluation. Return for worse pain, fever, vomiting, weakness , breathing problems or other concerns as needed. Scripts Doxycycline Hyclate (Doxycycline Hyclate) 100 Mg Tablet 100 MG PO BID, #20 TAB 0 Refills Prov: DANA HUMPHREY MD 10/30/18 DANA HUMPHREY MD Oct 30, 2018 18:59
[2018-10-30 19:04] LABS: BACTERIA,URINE FEW /HPF; WBC,URINE RARE /HPF
[2018-10-30 19:08] LABS: ALBUMIN 3.8 GM/DL (3.2-4.5); BILIRUBIN,TOTAL 0.9 MG/DL (0.1-1.0); CALCIUM 9.7 MG/DL (8.5-10.1); CREATININE SERUM 0.93 MG/DL (0.60-1.30); POTASSIUM 4.3 MMOL/L (3.6-5.0); TOTAL PROTEIN 7.3 GM/DL (6.4-8.2)
[2018-10-30 19:09] LABS: BAND NEUTROPHILS 3 %; BASOPHILS % (MANUAL) 0 %; EOSINOPHILS % (MANUAL) 0 %; LYMPHOCYTES % (MANUAL) 24 %; MONOCYTES % (MANUAL) 4 %; NEUTROPHILS % (MANUAL) 69 %; STOMATOCYTES SLIGHT; TOXIC GRANULATION/VACUOLAZATIO 1+
--- NOTE | 2018-10-30 19:26 | Diagnostic Imaging Report ---
EXAMINATION: Chest (PA and lateral). CLINICAL INDICATION: 68-year-old female, cough, congestion, fever. COMPARISON: December 03, 2017. FINDINGS: Stable overall appearance of the cardiomediastinal silhouette. There are aortic calcifications. There is no identified pneumothorax. There is no pleural effusion. There are mild linear opacities in the left midlung likely relating to subsegmental atelectasis. There are degenerative changes of the spine. IMPRESSION: 1. Mild subsegmental atelectasis in the left midlung. 2. No identified acute cardiopulmonary abnormality. Dictated by: Dictated on workstation # [id number]
--- OUTSIDE RECORDS SUMMARY | 2018-10-30 19:34 | XMS REPORT | Clinical Summary ---
Author Author [facility] Organization [facility] Address Unknown Phone Unavailable Care Team Providers Care Clinical Systems Analyst Name Role Phone RubinaDarling Domenica DO Unavailable Unavailable Herman Castrejon PHARMD Unavailable Unavailable Didi Louie APRN PCP Source Comments Some departments are not documenting in the electronic medical record. If you do not see the information that you expected, contact Release of Information in the Health Information Management department at [phone] for further assistance in locating additional records.[facility] Allergies Comments Active Allergy Reactions Severity Noted [...] Overview: Added automatically from request for surgery [id number] PSVT (paroxysmal supraventricular tachycardia) 01/07/2018 Overview: ECHO 11/20/15: normal LV with EF of 60-65%, trivial MR and TR, mild diastolic dysfunction. 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 Family History Medical History Relation Name Comments [...] Taken Vital Sign Reading 06/11/2018 1:52 PM LOG CUT OFF SAWYER Blood Pressure 114/61 06/11/2018 1:52 PM LOG CUT OFF SAWYER Pulse 63 02/19/2018 10:00 AM CDT Temperature 37.1 C (98.7 F) 07/04/2013 2:17 PM LOG CUT OFF SAWYER Respiratory Rate 14 02/19/2018 10:00 AM CDT Oxygen Saturation 93% - Inhaled Oxygen - Concentration 06/11/2018 12:45 PM LOG CUT OFF SAWYER Weight 81.6 kg (180 lb) 06/11/2018 12:45 PM LOG CUT OFF SAWYER Height 160 cm (5' 3") 06/11/2018 12:45 PM LOG CUT OFF SAWYER Body Mass Index 31.89 Plan of Treatment Health Maintenance Due Date Last Done Comments HEPATITIS C SCREENING 1950 PHYSICAL (COMPREHENSIVE) 1956 EXAM DTAP/TDAP VACCINES (1 - 1967 Tdap) BREAST CANCER SCREENING 1989 COLORECTAL CANCER 1999 SCREENING SHINGLES RECOMBINANT 1999 VACCINE (1 of 2) OSTEOPOROSIS 2014 SCREENING/MONITORING PNEUMONIA (PCV13/PPSV23) 2014 VACCINES (1 of 2 - PCV13) INFLUENZA VACCINE 02/10/2019 Results Not on filefrom Last 3 Months Insurance Type Payer Benefit Subscriber ID Effective Phone Address Plan / Dates Group Medicare MEDICARE MEDICARE xxxxxxxxxx 2014- PART A AND Present B Medicaid [facility] MEDICAID [facility] xxxxxxxxxxx 2017-P [employer] [place] [facility] xxxxxxxxxxx 2018- [place] Present HEALTH/SNF /FDC Advance Directives Patient has advance care planning documents, and code status on file. For more information, please contact: [facility] [address] [place] [address] Date Inactivated Comments Code Status Date Activated 02/19/2018 3:33 PM Full Code 02/15/2018 6:28 PM Provider has discussed Code Status No, discussion not w/Patient or Family? necessary based on Dx 01/22/2018 3:07 PM Full Code 01/21/2018 6:08 AM Provider has discussed Code Status No, discussion not w/Patient or Family? necessary based on Dx
--- OUTSIDE RECORDS SUMMARY | 2018-10-30 19:35 | XMS REPORT ---
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 591469507 Problem Peripheral vascular disease, unspecified I73.9 Active 768779486 Problem Dysphagia, unspecified dysphagia R13.10 Active 06195143 Problem Depression, unspecified depression type F32.9 Active 98466281 Problem Anxiety F41.9 Active 28838422 Problem COPD (chronic obstructive pulmonary disease) J44.9 Active 10421532 Problem Hypertension I10 Active 93102848 Problem Atrial fibrillation I48.91 Active 87254377 Problem Rheumatoid arthritis M06.9 Active 64033920 Problem Tobacco abuse, 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 090221067 Problem Dysthymia F34.1 Active 04973567 Problem Chronic pain syndrome G89.4 Active 235922023 Problem Edema R60.9 Active 962529393 Problem Anemia, unspecified type D64.9 Active 493567077 Problem Iron deficiency anemia, unspecified iron deficiency anemia type D50.9 Active 16113576 Problem Other chronic pain G89.29 Active 50596195 Problem History of oral cancer Z85.819 Active 554704590 Problem 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 453306582 Problem Neuropathy G62.9 Active 977840018 Problem History of cerebrovascular accident with current residual effects I69.90 Active 866702888 Problem Osteoarthritis of foot M19.079 Active 814692402 Problem Chronic obstructive pulmon disease w acute lower resp infct J44.0 Active 280987096 Problem Primary insomnia F51.01 Active 6163726 Problem Insomnia, unspecified G47.00 Active 399948784 Problem Seasonal allergic rhinitis due to pollen J30.1 Active 52503466 ALLERGIES No Information ENCOUNTERS Encounter Location Date Diagnosis [facility] [id number] [place] [address] 37064- 7797 Sep, Chronic pain syndrome G89.4 [facility] [id number] [place] [address] 52720- 9224 Sep, Leg pain, left M79.605 ; Right leg pain M79.604 and Reactive cervical nodes R59.0 [place] [address] 43760- 2324 14 Sep, 2018 [place] [address] 60558- 9911 Sep, Neuropathy G62.9 [facility] [address] [id number] Sep, [place] [address] 71969- 8757 Sep, Lymphadenopathy of left cervical region R59.0 [facility] [id number] [place] [address] 72946- 8381 Sep, Lymphadenopathy of left cervical region R59.0 and Neuropathy G62.9 [facility] [id number] [place] [address] 12041- 9982 Aug, Chronic pain syndrome G89.4 [facility] [id number] [place] [address] 92277- 0022 Aug, [facility] [id number] [place] [address] 42236- 3455 Aug, Peripheral vascular disease, unspecified I73.9 ; Other chronic pain G89.29 ; Chronic obstructive pulmon disease w acute lower resp infct J44.0 and Primary insomnia F51.01 [facility] [id number] [place] [address] 49325- 4144 Aug, Chronic pain syndrome G89.4 [facility] [id number] [place] [address] 73645- 2161 Jul, Chronic pain syndrome G89.4 [facility] [address] 47555- 8641 Jun, Chronic pain syndrome G89.4 [facility] [id number] [place] [address] 64800- 7636 May, Chronic pain syndrome G89.4 [facility] [address] 42467 -5453 Apr, Cough R05 and Viral illness B34.9 [facility] [address] 89400- 6919 Apr, Encounter for immunization Z23 [facility] [address] 59353- 1864 Apr, Chronic pain syndrome G89.4 [facility] [address] 59669 -5600 Apr, Left acute otitis media H66.92 [facility] [id number] [place] [address] 90962- 3971 Mar, Rheumatoid arthritis M06.9 ; Other chronic pain G89.29 ; History of oral cancer Z85.819 and History of tachycardia Z87.898 [facility] [id number] [place] [address] 92022- 3169 Mar, Chronic pain syndrome G89.4 [facility] [id number] [place] [address] 32232- 9383 Feb, Chronic pain syndrome G89.4 [facility] [id number] [place] [address] 05762- 5122 Feb, Chronic pain syndrome G89.4 [facility] [id number] [place] [address] 97967- 6466 Jan, Chronic pain syndrome G89.4 [facility] [id number] [address] 1539 Jan, [facility] [id number] [place] [address]- 8302 Dec, Chronic pain syndrome G89.4 [facility] [address] [address] 9982 November, Chronic pain syndrome G89.4 [facility] [id number] [address]- 5170 November, [facility] [address] [place] [address]- 6142 Oct, Chronic pain syndrome G89.4 [facility] [address] [address]- 9221 Oct, [facility] [id number] [place] [address] 05868- 2903 Oct, Chronic pain syndrome G89.4 [facility] [id number] [address]- 5352 Oct, [facility] [id number] [address]- 3392 Oct, [facility] [address] [address]- 0655 Sep, Left upper quadrant pain R10.12 ; Chronic pain syndrome G89.4 ; Left lower quadrant pain R10.32 ; Other chronic pain G89.29 ; Sacrococcygeal disorders, not elsewhere classified M53.3 and Seasonal allergic rhinitis due to pollen J30.1 [facility] [address] [address] 3224 Sep, Chronic pain syndrome G89.4 [facility] [address] [place] [address]- 0166 Sep, [facility] [id number] [address]- 2135 Aug, Chronic pain syndrome G89.4 [facility] [address] [address]- 4487 Aug, [facility] [id number] [place] [address] 85000- 4723 Aug, Insomnia, unspecified G47.00 [facility] [id number] [place] [address] 71041- 3549 Jul, [facility] [id number] [place] [address] 69431- 2076 Jul, [facility] [id number] [place] [address] 30414- 1205 Jul, Chronic pain syndrome G89.4 [facility] [id number] [place] [address] 24514- 4953 Jun, Chronic pain syndrome G89.4 [facility] [id number] [place] [address] 64645- 3996 Jun, Chronic pain syndrome G89.4 [facility] [id number] [place] [address] 40049- 0779 May, [facility] [id number] [place] [address] 47344- 1561 May, Shortness of breath R06.02 ; Peripheral vascular disease, unspecified I73.9 ; Pain in right knee M25.561 ; Other chronic pain G89.29 ; Chest wall pain R07.89 ; Chronic pain syndrome G89.4 ; Primary insomnia F51.01 and Ear pain, left H92.02 [facility] [address] [place] [address] 13380- 8943 May, Anxiety F41.9 [facility] [address] [place] [address] 30866- 2205 09 Apr, 2017 Pneumonia due to infectious organism, unspecified laterality , unspecified part of lung J18.9 ; Hypoxia R09.02 ; Bradycardia R00.1 ; History of Clostridium difficile Z87.19 and Primary insomnia F51.01 [facility] [address] [place] [address] 10395- 0461 Apr, Anxiety F41.9 [facility] [id number] [place] [address] 83077- 8251 Apr, [facility] [id number] [place] [address] 88241- 7129 Mar, Anxiety F41.9 [facility] [id number] [place] [address] 23940- 6996 Feb, [place] [address] 61975- 2595 Feb, [facility] [id number] [place] [address] 56587- 6820 Feb, Abnormal finding on urinalysis R82.90 [facility] [id number] [place] [address] 40697- 2359 Feb, [facility] [id number] [place] [address] 22426- 6610 Feb, Shortness of breath R06.02 ; Tachycardia R00.0 ; Cough R05 ; Ill feeling R68.89 and Abnormal finding on urinalysis R82.90 [facility] [id number] [place] [address] 22549- 3988 Feb, Anxiety F41.9 [facility] [id number] [place] [address] 22675 -4195 Feb, Sore throat J02.9 and Acute diffuse otitis externa of left ear H60.312 [facility] [id number] [place] [address] 89207- 5447 Jan, [facility] [id number] [place] [address] 35016- 7906 Jan, [facility] [address] [id number] Jan, [facility] [address] [address]- 2703 Jan, Depression, unspecified depression type F32.9 ; Chronic bronchitis, unspecified chronic bronchitis type J42 ; Chronic pain syndrome G89.4 and Anxiety F41.9 [facility] [address], [place] [address]- 8206 Jan, [facility] [id number] [place] [address] 02006- 3572 Jan, [facility] [id number] [place] [address] 84548- 0443 Jan, [facility] [id number] [place] [address] [id number] Jan, Chronic pain syndrome G89.4 [facility] [address] [place] [id number] Dec, History of right knee surgery Z98.890 [facility] [address] [place] [address] 64257- 4795 Dec, [facility] [id number] [place] [address] 55751- 1186 Dec, Chronic pain syndrome G89.4 [facility] [id number] [place] [address] 83302- 9975 November, Anxiety F41.9 [facility] [id number] [place] [address] 21105 -5004 November, Acute cystitis without hematuria N30.00 [facility] [id number] [place] [address] 33599 -3908 November, Fever, unspecified fever cause R50.9 and Acute cystitis without hematuria N30.00 [facility] [address] [address]- 4435 November, Chronic pain syndrome G89.4 [facility] [id number] [place] [address] 81679- 7771 Oct, Anxiety F41.9 [facility] [id number] [place] [address] 45002- 2140 Oct, Chronic pain syndrome G89.4 [place] [id number] [place] [address] 82533- 5065 Oct, Chronic pain syndrome G89.4 [facility] [id number] [place] [address] 99369- 0350 Oct, [facility] [id number] [place] [address] 77124- 5735 Oct, Chronic pain syndrome G89.4 ; Pain in right knee M25.561 ; History of Clostridium difficile Z87.19 ; Iron deficiency anemia, unspecified iron deficiency anemia type D50.9 ; Peripheral vascular disease, unspecified I73.9 and Atrial fibrillation I48.91 [place] [address] [place] [address] 44422- 9817 Oct, [facility] [place] [id number] [place] [address] 23577- 3087 Oct, Chronic pain syndrome G89.4 [place] [place] [id number] [place] [address] 16460- 6483 Sep, [place] [place] [address] [place] [address] 19435- 3408 Sep, Depression, unspecified depression type F32.9 ; Chronic bronchitis, unspecified chronic bronchitis type J42 ; Chronic pain syndrome G89.4 and Anxiety F41.9 [facility] [address] [id number] Sep, History of Clostridium difficile infection Z86.19 and History of stroke Z86.73 [facility] [id number] [place] [address] [id number] Sep, Anxiety F41.9 [place] [id number] [place] [address] 06315- 6075 Sep, Chronic pain syndrome G89.4 [facility] [id number], [place] [address]- 9367 Sep, [facility] [id number] [place] [address] [id number] Sep, [facility] [address], [place] [address]- 6418 Aug, Anxiety F41.9 [facility] [id number] [place] [address] 60033 2546 Aug, Anxiety F41.9 [facility] [id number] [place] [address] 13227- 1796 Aug, [facility] [id number] [place] [address] 33820- 8604 14 Aug, 2016 Acute knee pain, unspecified laterality M25.569 [facility] [id number] [place] [address] 01748- 3227 Aug, [facility] [id number] [place] [address] 90124- 5847 Aug, Chronic pain syndrome G89.4 [facility] [id number] [place] [address] 22459- 5242 Aug, [facility] [id number], [place] [address]- 9061 Aug, [facility] [id number] [place] [address] 85061- 0644 Jul, [facility] [address], [place] [address]- 4557 Jul, Anxiety F41.9 [facility] [address], [place] [address]- 8402 Jul, Clostridium difficile diarrhea A04.7 [facility] [address] [id number] Jul, Clostridium difficile diarrhea A04.7 ; Chronic pain syndrome G89.4 ; Chronic obstructive pulmon disease w acute lower resp infct J44.0 and Pain in right knee M25.561 [facility] [id number] [place] [address] [id number] Jul, [facility] [address], [place] [address] Jul, Anxiety F41.9 and Chronic pain syndrome G89.4 [facility] [id number] [place] [address] 68299- 4573 Jun, Anxiety F41.9 [facility] [address] [place] [address] 88839- 1397 Jun, Rheumatoid arthritis 714.0 [facility] [id number] [place] [address] 60962- 4683 Jun, Chronic pain syndrome G89.4 [facility] [id number] [place] [address] 63375- 9928 Jun, [facility] [address] [place] [address] 90128- 9434 Jun, [facility] [id number] [place] [address] 97916- 7323 Jun, History of pneumonia Z87.01 and History of Clostridium difficile Z87.19 [facility] [address] [place] [address] 58048- 8433 Jun, [facility] [id number] [place] [address] 84275- 7950 May, [facility] [address], [place] [address]- 0026 May, Anxiety F41.9 [facility] [address] [place] [address] 50825- 4466 May, Chronic pain syndrome G89.4 [facility] [address] [place] [address] 34364- 8322 May, Chronic bronchitis, unspecified chronic bronchitis type J42 [facility] [address], [place] [address]- 8868 May, [facility] [id number] [place] [address] 04794- 2024 May, C. difficile diarrhea A04.7 ; Peripheral edema R60.9 ; COPD (chronic obstructive pulmonary disease) J44.9 ; Rheumatoid arthritis, involving unspecified site, unspecified rheumatoid factor presence M06.9 ; Pain in right knee M25.561 ; Pain in left knee M25.562 and Other chronic pain G89.29 [facility] [id number] [place] [address] 07198- 4330 May, [facility] [id number] [place] [address] 20751- 6063 May, [facility] [id number] [place] [address] 00149- 2809 May, Anxiety F41.9 [facility] [id number] [place] [address] 64205- 5955 Apr, [facility] [id number] [place] [address] 09299- 6659 Apr, Chronic pain syndrome G89.4 [facility] [id number] [place] [address] 62215- 4261 Apr, Leg pain, left M79.605 [facility] [address] [place] [address] 38057- 1094 Apr, [facility] [id number] [address]- 4848 Apr, [facility] [id number] [place] [address] 40598- 2193 Apr, [facility] [id number] [place] [address] 12144- 5190 Mar, Chronic pain syndrome G89.4 [facility] [id number] [address]- 7162 22 Mar, 2016 Acute frontal sinusitis, recurrence not specified J01.10 [facility] [id number] [place] [address] 53602- 6506 20 Mar, 2016 Iron deficiency anemia, unspecified iron deficiency anemia type D50.9 ; Rheumatoid arthritis with positive rheumatoid factor, involving unspecified site M05.9 and Depression, unspecified depression type F32.9 [facility] [id number] [place] [address] 62939- 6991 13 Mar, 2016 Iron deficiency anemia, unspecified iron deficiency anemia type D50.9 ; Depression, unspecified depression type F32.9 and Rheumatoid arthritis with positive rheumatoid factor, involving unspecified site M05.9 [facility] [id number] [place] [address] 80747- 3430 06 Mar, 2016 [facility] [id number] [place] [address] 99345- 6527 Mar, [facility] [id number] [place] [address] 04444- 9703 Feb, Chronic pain syndrome G89.4 [facility] [id number] [place] [address] 66809- 0224 30 Feb, 2016 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 ; Status post CVA Z86.73 ; Hemiplegia G81.90 and Anemia, unspecified type D64.9 [facility] [address] [place] [address] 10820- 6985 Feb, [facility] [id number] [place] [address] 84828- 5701 Feb, Anemia, unspecified type D64.9 [facility] [id number] [place] [address] 09167- 3975 Feb, [facility] [address] [place] [address] 84988- 9310 Feb, Iron deficiency anemia, unspecified iron deficiency anemia type D50.9 [facility] [address], [place] [address]- 2622 Feb, [facility] [id number] [place] [address] 86260- 1399 Feb, Chronic bronchitis, unspecified chronic bronchitis type J42 [facility] [id number] [place] [address] 02673- 8334 Feb, Iron deficiency anemia, unspecified iron deficiency anemia type D50.9 [facility] [id number] [place] [address] 77871- 8754 Feb, Chronic pain syndrome G89.4 [facility] [id number] [place] [address] 16791- 2857 Feb, Anemia, unspecified type D64.9 and Hypoxia R09.02 [facility] [id number] [place] [address] 93211- 5420 Feb, Anemia, unspecified type D64.9 [facility] [id number] [place] [address] 71018- 6391 Jan, [facility] [id number] [place] [address] 01772- 6599 Jan, Anemia, unspecified type D64.9 [facility] [address] [address]- 7525 Jan, [facility] [id number] [place] [address] 87750 2545 Jan, Anemia, unspecified type D64.9 [facility] [id number] [place] [address] 43463- 6698 Jan, Anemia, unspecified type D64.9 [facility] [id number], [place] [address]- 6555 Jan, [facility] [id number] [place] [address] 76564- 1347 Jan, Anemia, unspecified type D64.9 [facility] [address] [place] [address]- 8572 Jan, [facility] [id number] [place] [address] 44386- 7588 Jan, [facility] [id number] [place] [address] 04074- 8748 Jan, Chronic pain syndrome G89.4 [facility] [id number] [place] [address] 44330- 4901 Jan, Anemia, unspecified type D64.9 [facility] [id number] [place] [address] 82641- 7800 Jan, Dysthymia F34.1 ; Cervicalgia M54.2 ; Fatigue, unspecified type R53.83 and Depression, unspecified depression type F32.9 [facility] [id number] [place] [address] [id number]- [phone] Dec, [facility] [id number] [place] [address] [phone]- [phone] Dec, Anxiety F41.9 [facility] [id number] [place] [address] [phone]- 7468 Dec, Chronic pain syndrome G89.4 [facility] [id number] [place] [address] [phone]- [phone] November, [facility] [id number] [place] [address] [phone]- [phone] November, Edema R60.9 and Dizziness R42 [facility] [id number] [place] [address] [phone]- [phone] November, [facility] [id number] [place] [address] [phone]- [phone] November, [facility] [id number] [place] [address] [phone]- 0526 November, COPD (chronic obstructive pulmonary disease) J44.9 ; Increased tracheal secretions J39.[address] [facility] [id number] [place] [address] [phone] -[phone] Oct, [facility] [id number] [place] [address] [id number] -5372 Oct, Shortness of breath R06.02 and Edema R60.9 [facility] [id number] [place] [address] [phone]- 2502 Oct, Chronic bronchitis, unspecified chronic bronchitis type J42 ; Peripheral vascular disease, unspecified I73.9 ; Rheumatoid arthritis M06.9 and Atrial fibrillation I48.91 [place] [id number] [place] [address] 65706- 5698 Oct, [place] [id number] [place] [address] 78718- 7759 Oct, [facility] [id number] [place] [address] 30883- 3376 Oct, [facility] [id number] [place] [address] 75807- 9128 Oct, [facility] [id number] [place] [address] 78937 -8188 Oct, COPD exacerbation J44.1 [facility] [id number] [place] [address] 69774- 6379 Sep, [facility] [id number] [place] [address] 14436- 1539 Sep, [place] [id number] [place] [address] 29611- 2268 Sep, [facility] [id number] [place] [address] 09947- 4110 Aug, [place] [id number] [place] [address] 44498- 5575 Aug, 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 and PVD (peripheral vascular disease ) I73.9 [facility] [id number] [place] [address] 70744- 9370 Aug, Bronchitis J40 ; COPD (chronic obstructive pulmonary disease ) J44.9 and Dysthymia F34.1 [facility] [id number] [place] [address] 98323- 1016 Aug, [facility] [address] 39691- 3070 Jul, [facility] [id number] [place] [address] 11635- 6945 Jul, [facility] [id number] [place] [address] 60193- 7786 Jul, [facility] [id number] [place] [address] 96838- 5784 Jun, [facility] [id number] [place] [address] 85909- 5210 Jun, [facility] [id number] [place] [address] 52627- 2804 Jun, Peripheral vascular disease I73.9 [facility] [id number] [place] [address] 25527- 9789 Jun, [facility] [id number] [place] [address] 41963- 1129 Jun, [facility] [id number] [place] [address] 86827- 3060 Jun, Leg pain, left M79.605 ; Dysphagia, unspecified dysphagia R13.10 ; Insomnia, unspecified type G47.00 ; PVD (peripheral vascular disease) I73.9 and 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 [facility] [id number] [place] [address] 81914- 3706 May, [facility] [id number] [place] [address]- 8094 May, [facility] [address] [facility] [id number] [place] [address]- 0974 May, [facility] [address] [facility] [id number] [place] [address]- 9477 May, [facility] [id number] [place] [address], [place] [address]- 0094 May, [facility] [address] [facility] [id number] [place] [address]- 0117 Apr, [facility] [id number] [place] [address], [place] [address]- 4563 Apr, [facility] [id number] [place] [address]- 5763 Mar, [facility] [id number] [place] [address], [place] [address]- 3598 Mar, [facility] [id number] [address]- 8361 Feb, [facility] [id number] [address]- 9574 Feb, Nicotine abuse 305.1 ; Arthralgia 719.40 and 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 [facility] [id number] [address]- 6466 Feb, [facility] [id number] [address]- 2822 Jan, [facility] [id number] [address]- 0387 Jan, [facility] [id number] [address]- 8707 Jan, [facility] [id number] [address]- 7978 Jan, [facility] [id number] [address]- 6359 Jan, 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 ; Rheumatoid arthritis 714.0 ; Hypertension 401.9 ; GERD (gastroesophageal reflux disease) 530.81 ; Nicotine addiction 305.1 and Leukocytosis 288.60 [facility] [id number] [address]- 9647 Jan, 2014 [facility] [id number] [address]- 5291 Jan, [facility] [id number] [address]- 6845 Jan, [facility] [id number] [address]- 4155 Jan, [facility] [id number], [place] [address]- 8487 Jan, [facility] [id number] [address]- 2215 Dec, [facility] [id number], [place] [address]- 5523 Dec, [facility] [id number], [place] [address]- 0886 Dec, [facility] [id number] [address]- 8901 Dec, [facility] [id number], [place] [address]- 2257 November, [facility] [id number] [address]- 9751 November, [facility] [id number], [place] [address]- 2886 November, Shortness of breath 786.05 [facility] [id number] [address]- 2599 November, Rheumatoid arthritis 714.0 [facility] [id number] [address]- 8137 November, 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 [facility] [id number] [place] [address] 26549- 8080 November, Neuropathy 355.9 ; Insomnia 780.52 ; Dysthymia 300.4 ; Shortness of breath 786.05 ; Rheumatoid arthritis 714.0 and Nausea 787.02 [facility] [id number] [place] [address] 62536- 7981 November, [facility] [id number] [place] [address] 27221- 2683 November, [facility] [id number] [place] [address] 28955- 0926 Oct, [facility] [id number] [place] [address] 27932- 6290 Oct, [facility] [id number] [place] [address] 57817- 1362 Oct, [facility] [id number] [place] [address] 54655- 0862 Oct, [facility] [id number] [place] [address] 05276- 2284 Sep, [facility] [id number], [place] [address]- 0755 Sep, [facility] [id number] [place] [address] 56767- 3058 Sep, [facility] [id number] 5072 Sep, [facility] [id number] [place] [address] 95601- 2930 Sep, [facility] [id number] 3271 Sep, [facility] [address] [place] [address]- 6505 Sep, [facility] [place] [facility] [address] [id number] [place] [address]- 6874 Sep, [facility] [place] [facility] [address] [id number] [place] [address]- 2236 Aug, [facility] [place] [facility] [address] [id number] [place] [address]- 6446 Aug, 2014 [facility] [place] [facility] [address] [id number] [place] [address]- 1203 Aug, [facility] [place] [facility] [address] [id number] [place] [address]- 8416 Aug, 2014 [facility] [place] [facility] [address] [facility] [id number] [place] [address]- 9582 Aug, [facility] [place] [facility] [address] [facility] [id number] [place] [address]- 3540 Aug, [facility] [place] [facility] [address] [id number] [place] [address]- 0083 Jul, [facility] [place] [facility] [address] [id number] [place] [address]- 1268 Jul, [facility] [place] [facility] [address] [facility] [id number] [place] [address]- 6118 Jul, [facility] [place] [facility] [address] [id number] [place] [address]- 5471 Jul, [facility] [place] [facility] [address] [id number] [place] [address] 2543 Jul, [facility] [place] [facility] [address] [id number] [place] [address]- 6406 Jul, [facility] [place] [facility] [address] [facility] [id number] [place] [address]- 9416 Jul, [facility] [place] [facility] [address] [facility] [id number] [place] [address]- 9922 Jul, [facility] [place] [facility] [address] [id number] [place] [address]- 2539 Jul, [facility] [place] [facility] [address] [id number] [place] [address]- 7767 Jul, [facility] [place] [facility] [address] [id number] [place] [address]- 3383 Jun, [facility] [place] [facility] [address] [id number] [place] [address]- 4913 Jun, [facility] [place] [facility] [address] [id number] [place] [address]- 3139 Jun, [facility] [place] [facility] [address] [id number] [place] [address]- 0306 Jun, [facility] [place] [facility] [address] [id number] [place] [address]- 5855 Jun, [facility] [place] [facility] [address] [id number] [place] [address]- 1864 Jun, [facility] [place] [facility] [address] [id number] [place] [address]- 9081 Jun, [facility] [place] [facility] [address] [id number] [place] [address]- 0838 Jun, [facility] [place] [facility] [address] [id number] [place] [address]- 4159 Jun, [facility] [place] [facility] [address] [id number] [place] [address]- 2621 Jun, [facility] [place] [facility] [address] [id number] [place] [address]- 2645 Jun, [facility] [place] [facility] [address] [id number] [place] [address]- 0466 Jun, [facility] [place] [facility] [address] [id number] [place] 4960 Jun, [facility] [place] [facility] [address] [id number] [place] [address]- 5852 Jun, [facility] [place] [facility] [address] [id number] [place] [address]- 0766 Jun, [facility] [place] [facility] [address] [id number] [place] [address]- 9807 Jun, [facility] [place] [facility] [address] [id number] [place] [address]- 4252 May, [facility] [place] [facility] [address] [id number] [place] [address]- 4467 May, [facility] [place] [facility] [address] [id number] [place] [address]- 0339 May, [facility] [place] [facility] [address] [id number] [place] [address]- 1846 May, [facility] [place] [facility] [address] [id number] [place] [address]- 5144 May, [facility] [place] [facility] [address] [id number] [place] [address]- 6862 May, [facility] [place] [facility] [address] [id number] [place] [address]- 6042 May, [facility] [place] [facility] [address] [facility] [id number] [place] [address]- 3685 May, [facility] [place] [facility] [address] [id number] [place] [address]- 2057 May, [facility] [place] [facility] [address] [id number] [address]- 3494 Apr, [facility] [place] [facility] [address] [id number] [place] [address]- 1088 Apr, [facility] [place] [facility] [address] [id number] [place] [address]- 1676 Apr, [facility] [place] [facility] [address] [id number], [place] [address]- 6274 Apr, [facility] [place] [facility] [address] [id number] [place] [address]- 2214 Apr, [facility] [place] [facility] [address] [id number] [place] [address]- 1840 Apr, [facility] [place] [facility] [address] [id number] [place] [address]- 9560 Apr, [facility] [place] [facility] [address] [id number] [place] [address]- 0246 Apr, [facility] [place] [facility] [address] [id number] [place] [address]- 6460 Apr, [facility] [place] [facility] [address] [id number] [place] [address]- 8674 Apr, [facility] [place] [facility] [address] [id number] [place] [address]- 2507 Apr, [facility] [place] [facility] [address] [id number] [place] [address]- 3968 Apr, [facility] [place] [facility] [address] [id number] [place] [address]- 1107 22 Mar, 2014 [facility] [place] [facility] [address] [id number] [place] [address]- 3042 22 Mar, 2014 [facility] [place] [facility] [address] [id number] [place] [address]- 2076 19 Mar, 2014 [facility] [place] [facility] [address] [id number] [place] [address]- 7544 19 Mar, 2013 [facility] [place] [facility] [address] [id number] [place] [address]- 4942 11 Mar, 2014 [facility] [place] [facility] [address] [id number] [place] [address]- 2546 11 Mar, 2013 [facility] [place] [facility] [address] [id number] [place] [address]- 6829 11 Mar, 2013 [facility] [place] [facility] [address] [id number] [place] [address]- 3463 Mar, [facility] [place] [facility] [address] [id number] [place] [address]- 9454 Mar, [facility] [place] [facility] [address] [id number] [place] [address]- 7733 Mar, [facility] [place] [facility] [address] [id number] [place] [address]- 3910 Feb, [facility] [place] [facility] [address] [id number] [place] [address]- 9666 Feb, [facility] [place] [facility] [address] [id number] [place] [address]- 4638 Feb, [facility] [place] [facility] [address] [id number] [place] [address]- 6356 Feb, [facility] [place] [facility] [address] [id number] [place] [address]- 4083 Feb, [facility] [place] [facility] [address] [id number] [place] [address]- 6627 Feb, [facility] [place] [facility] [address] [id number] [place] [address]- 5151 Feb, [facility] [place] [facility] [address] [id number] [place] [address]- 5476 Feb, [facility] [place] [facility] [address] [id number] [place] [address]- 0151 Feb, [facility] [place] [facility] [address] [id number] [place] [address]- 2274 Feb, [facility] [place] [facility] [address] [id number] [place] [address]- 8930 Feb, [facility] [place] [facility] [address] [id number] [place] [address]- 4059 Feb, [facility] [place] [facility] [address] [id number] [place] [address]- 4225 Feb, [facility] [place] [facility] [address] [id number] [place] [address]- 3025 Feb, [facility] [place] [facility] [address] [id number] [place] [address]- 5257 Feb, [facility] [place] [facility] [address] [id number] [place] [address]- 6447 Feb, [facility] [place] [facility] [address] [id number] [place] [address]- 7637 Jan, [facility] [place] [facility] [address] [id number] [place] [address]- 4127 Jan, [facility] [place] [facility] [address] [id number] [place] [address]- 8440 Jan, [facility] [place] [facility] [address] [id number] [place] [address]- 4207 Jan, [facility] [place] [facility] [address] [id number] [place] [address]- 9127 Jan, [facility] [place] [facility] [address] [id number] [place] [address]- 4231 Jan, [facility] [place] [facility] [address] [id number] [place] [address]- 9126 Dec, [facility] [place] [facility] [address] [id number] [place] [address]- 1903 Dec, [facility] [place] [facility] [address] [id number] [place] [address]- 0200 Dec, [facility] [place] [facility] [address] [id number] [place] [address]- 8892 Dec, [facility] [place] [facility] [address] [id number] [place] [address]- 0638 Dec, [facility] [place] [facility] [address] [id number] [place] [address]- 3491 Dec, [facility] [place] [facility] [address] [id number] [place] [address]- 3665 Dec, [facility] [place] [facility] [address] [id number] [place] [address]- 1486 Dec, [facility] [place] [facility] [address] [id number] [place] [address]- 6849 November, [facility] [place] [facility] [address] [id number] [place] [address]- 7766 November, [facility] [place] [facility] [address] [id number] [place] [address]- 1041 November, [facility] [place] [facility] [address] [id number] [place] [address]- 3545 November, [facility] [place] [facility] [address] [id number] [place] [address]- 2021 November, [facility] [place] [facility] [address] [id number] [place] [address]- 7443 November, [facility] [place] [facility] [address] [id number] [place] [address]- 9800 Oct, [facility] [place] [facility] [address] [id number] [place] [address]- 2546 Oct, [facility] [place] [facility] [address] [id number] [place] [address]- 7730 Oct, [facility] [place] [facility] [address] [id number] [place] [address]- 9819 Oct, [facility] [place] [facility] [address] [id number] [place] [address]- 7794 Sep, [facility] [place] [facility] [address] [id number] [place] [address]- 8147 Sep, [facility] [place] [facility] [address] [id number] [place] [address]- 2988 Sep, [facility] [place] [facility] [address] [id number] [place] [address]- 8856 Sep, [facility] [place] [facility] [address] [id number] [place] [address]- 5329 Sep, [facility] [place] [facility] [address] [id number] [place] [address]- 8860 Sep, [facility] [place] [facility] [address] [id number] [place] [address]- 4906 Aug, [facility] [place] [facility] [address] [id number] [place] [address]- 3836 Aug, [facility] [place] [facility] [address] [id number] [place] [address]- 9177 Aug, [facility] [place] [facility] [address] [id number] [place] [address]- 5336 Aug, [facility] [place] [facility] [address] [id number] [place] [address]- 7376 Aug, [facility] [place] [facility] [address] [id number] [place] [address]- 2940 Aug, [facility] [place] [facility] [address] [id number] [place] [address]- 3488 Jul, [facility] [place] [facility] [address] [id number] [place] [address]- 4019 Jul, [facility] [place] [facility] [address] [id number] [place] [address]- 6642 Jul, [facility] [place] [facility] [address] [id number] [place] [address]- 0448 Jul, [facility] [place] [facility] [address] [id number] [place] [address]- 4127 Jul, [facility] [place] [facility] [address] [id number] [place] [address]- 4622 Jul, [facility] [place] [facility] [address] [id number] [place] [address]- 5245 Jul, [facility] [place] [facility] [address] [id number] [place] [address] Jul, [facility] [place] [facility] [address] [id number] [place] [address] Jul, [facility] [address] [id number] [place] [address] Jul, [facility] [address] [id number] [place] [address] Jul, [facility] [address] [id number] [place] [address] Jul, [facility] [address] [id number] [place] [address] Jul, [facility] [address] [id number] [place] [address] Jul, [facility] [address] [id number] [place] [address] Jul, [facility] [address] [id number] [place] [address] Jun, [facility] [address] [id number] [place] [address] Jun, [facility] [address] [id number] [place] [address] Jun, [facility] [address] [id number] [place] [address] Jun, [facility] [address] [id number] [place] [address] May, [facility] [address] [id number] [place] [address] May, [facility] [address] [id number] [place] [id number] May, [facility] [address] [id number] [place] [address] May, [facility] [address] [id number] [place] [address] May, [facility] [address] [facility] [id number] [address] May, [facility] [address] [id number] [address] May, [facility] [id number] [address] May, [facility] [id number], [place] [address] May, [facility] [id number] [id number] May, [facility] [id number], [place] [address] May, [facility] [id number] [id number] May, [facility] [address] [id number], [place] [address] May, [facility] [address] [id number] [id number] May, [facility] [address] [id number], [place] [address] May, IMMUNIZATIONS No Known Immunizations SOCIAL HISTORY Never Assessed [place] [place] VITAL SIGNS MEDICATIONS Unknown [...] Diarrhea, leukocytosis--[facility] 01/08/16 Hospitalization History pseudomemranous colitis, sepsis--[facility] 04/21/2016 Hospitalization History C Diff--[facility] 05/10/2016 Hospitalization History sepsis, pneumonia, diarrhea--[facility] 06/11/16 Hospitalization History recurrent cdiff, pneumonia-[facility] 07/22/16 Hospitalization History sepsis,pneumonia- [facility]
--- OUTSIDE RECORDS SUMMARY | 2018-10-30 19:35 | XMS REPORT ---
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 188714358 Problem Peripheral vascular disease, unspecified I73.9 Active 305840704 Problem Dysphagia, unspecified dysphagia R13.10 Active 44898051 Problem Depression, unspecified depression type F32.9 Active 89212172 Problem Anxiety F41.9 Active 69390254 Problem COPD (chronic obstructive pulmonary disease) J44.9 Active 48791063 Problem Hypertension I10 Active 94652056 Problem Atrial fibrillation I48.91 Active 00945986 Problem Rheumatoid arthritis M06.9 Active 35091706 Problem Tobacco abuse, 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 010380870 Problem Dysthymia F34.1 Active 44871716 Problem Chronic pain syndrome G89.4 Active 700288671 Problem Edema R60.9 Active 558387239 Problem Anemia, unspecified type D64.9 Active 221684684 Problem Iron deficiency anemia, unspecified iron deficiency anemia type D50.9 Active 39948589 Problem Other chronic pain G89.29 Active 03026716 Problem History of oral cancer Z85.819 Active 025902409 Problem 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 332202701 Problem Neuropathy G62.9 Active 162053402 Problem History of cerebrovascular accident with current residual effects I69.90 Active 877258829 Problem Osteoarthritis of foot M19.079 Active 385843020 Problem Chronic obstructive pulmon disease w acute lower resp infct J44.0 Active 755670008 Problem Primary insomnia F51.01 Active 1211303 Problem Insomnia, unspecified G47.00 Active 618438065 Problem Seasonal allergic rhinitis due to pollen J30.1 Active 29102736 ALLERGIES No Information ENCOUNTERS Encounter Location Date Diagnosis [facility] [id number] [place] [address] 39079- 3852 Sep, Chronic pain syndrome G89.4 [facility] [id number] [place] [address] 23341- 5995 Sep, Leg pain, left M79.605 ; Right leg pain M79.604 and Reactive cervical nodes R59.0 [place] [address] 19082- 2235 14 Sep, 2018 [place] [address] 64867- 6763 Sep, Neuropathy G62.9 [facility] [address] [id number] Sep, [place] [address] 27561- 0885 Sep, Lymphadenopathy of left cervical region R59.0 [facility] [id number] [place] [address] 90186- 3324 Sep, Lymphadenopathy of left cervical region R59.0 and Neuropathy G62.9 [facility] [id number] [place] [address] 64365- 3750 Aug, Chronic pain syndrome G89.4 [facility] [id number] [place] [address] 16346- 3942 Aug, [facility] [id number] [place] [address] 08192- 8223 Aug, Peripheral vascular disease, unspecified I73.9 ; Other chronic pain G89.29 ; Chronic obstructive pulmon disease w acute lower resp infct J44.0 and Primary insomnia F51.01 [facility] [id number] [place] [address] 07196- 9077 Aug, Chronic pain syndrome G89.4 [facility] [id number] [place] [address] 77782- 3785 Jul, Chronic pain syndrome G89.4 [facility] [address] 29044- 4764 Jun, Chronic pain syndrome G89.4 [facility] [id number] [place] [address] 52405- 0919 May, Chronic pain syndrome G89.4 [facility] [address] 36219 -0768 Apr, Cough R05 and Viral illness B34.9 [facility] [address] 55462- 5581 Apr, Encounter for immunization Z23 [facility] [address] 39994- 9865 Apr, Chronic pain syndrome G89.4 [facility] [address] 95634 -2254 Apr, Left acute otitis media H66.92 [facility] [id number] [place] [address] 16969- 6560 Mar, Rheumatoid arthritis M06.9 ; Other chronic pain G89.29 ; History of oral cancer Z85.819 and History of tachycardia Z87.898 [facility] [id number] [place] [address] 12082- 8430 Mar, Chronic pain syndrome G89.4 [facility] [id number] [place] [address] 44116- 0352 Feb, Chronic pain syndrome G89.4 [facility] [id number] [place] [address] 73483- 3237 Feb, Chronic pain syndrome G89.4 [facility] [id number] [place] [address] 67824- 6836 Jan, Chronic pain syndrome G89.4 [facility] [id number] [address] 7343 Jan, [facility] [address] [address] 3148 Dec, Chronic pain syndrome G89.4 [facility] [address] [address] 2117 November, Chronic pain syndrome G89.4 [facility] [id number] [address] 0682 November, [facility] [address] [address] 0315 Oct, Chronic pain syndrome G89.4 [facility] [address] [address]- 5106 Oct, [facility] [id number] [place] [address] 56200- 1939 Oct, Chronic pain syndrome G89.4 [facility] [address] [address]- 4826 Oct, [facility] [address] [address]- 4363 Oct, [facility] [address] [address] 6347 Sep, Left upper quadrant pain R10.12 ; Chronic pain syndrome G89.4 ; Left lower quadrant pain R10.32 ; Other chronic pain G89.29 ; Sacrococcygeal disorders, not elsewhere classified M53.3 and Seasonal allergic rhinitis due to pollen J30.1 [facility] [address] [address] 9603 Sep, Chronic pain syndrome G89.4 [facility] [address] [address]- 0939 Sep, [facility] [address] [address]- 3296 Aug, Chronic pain syndrome G89.4 [facility] [address] [address]- 7706 Aug, [facility] [id number] [place] [address] 93356- 9918 Aug, Insomnia, unspecified G47.00 [facility] [id number] [place] [address] 24647- 5440 Jul, [facility] [id number] [place] [address] 04160- 6304 Jul, [facility] [id number] [place] [address] 70505- 8455 Jul, Chronic pain syndrome G89.4 [facility] [id number] [place] [address] 81549- 0854 Jun, Chronic pain syndrome G89.4 [facility] [id number] [place] [address] 11676- 6784 Jun, Chronic pain syndrome G89.4 [facility] [id number] [place] [address] 48047- 7131 May, [facility] [id number] [place] [address] 81953- 2806 May, Shortness of breath R06.02 ; Peripheral vascular disease, unspecified I73.9 ; Pain in right knee M25.561 ; Other chronic pain G89.29 ; Chest wall pain R07.89 ; Chronic pain syndrome G89.4 ; Primary insomnia F51.01 and Ear pain, left H92.02 [facility] [id number] [place] [address] 05659- 8473 May, Anxiety F41.9 [facility] [id number] [place] [address] 16380- 9180 09 Apr, 2017 Pneumonia due to infectious organism, unspecified laterality , unspecified part of lung J18.9 ; Hypoxia R09.02 ; Bradycardia R00.1 ; History of Clostridium difficile Z87.19 and Primary insomnia F51.01 [facility] [id number] [place] [address] 86027- 4383 Apr, Anxiety F41.9 [facility] [id number] [place] [address] 42451- 2156 Apr, [facility] [id number] [place] [address] 98402- 4283 Mar, Anxiety F41.9 [facility] [id number] [place] [address] 35008- 9938 Feb, [place] [address] 01310- 5039 Feb, [facility] [place] [id number] [place] [address] 93568- 8729 Feb, Abnormal finding on urinalysis R82.90 [facility] [id number] [place] [address] 25359- 6249 Feb, [facility] [id number] [place] [address] 12940- 6154 Feb, Shortness of breath R06.02 ; Tachycardia R00.0 ; Cough R05 ; Ill feeling R68.89 and Abnormal finding on urinalysis R82.90 [facility] [id number] [place] [address] 41971- 9268 Feb, Anxiety F41.9 [facility] [id number] [place] [address] 85506 -7928 Feb, Sore throat J02.9 and Acute diffuse otitis externa of left ear H60.312 [facility] [id number] [place] [address] 24662- 2789 Jan, [facility] [id number] [place] [address] 04715- 0620 Jan, [facility] [address] [id number] Jan, [facility] [address] [address]- 2109 Jan, Depression, unspecified depression type F32.9 ; Chronic bronchitis, unspecified chronic bronchitis type J42 ; Chronic pain syndrome G89.4 and Anxiety F41.9 [facility] [address] [address]- 3222 Jan, [facility] [id number] [place] [address] 54514- 8804 Jan, [facility] [id number] [place] [address] 60251- 9013 Jan, [facility] [id number] [place] [address] [id number] Jan, Chronic pain syndrome G89.4 [facility] [address] [id number] Dec, History of right knee surgery Z98.890 [facility] [id number] [place] [address] 64777- 9745 Dec, [facility] [id number] [place] [address] 19261- 1974 Dec, Chronic pain syndrome G89.4 [facility] [id number] [place] [address] 40781- 2567 November, Anxiety F41.9 [facility] [id number] [place] [address] 47059 -2742 November, Acute cystitis without hematuria N30.00 [facility] [id number] [place] [address] 80540 -3699 November, Fever, unspecified fever cause R50.9 and Acute cystitis without hematuria N30.00 [facility] [address] [address]- 5950 November, Chronic pain syndrome G89.4 [facility] [id number] [place] [address] 18515- 7316 Oct, Anxiety F41.9 [facility] [place] [id number] [place] [address] 99438- 0160 Oct, Chronic pain syndrome G89.4 [facility] [place] [id number] [place] [address] 29095- 2198 Oct, Chronic pain syndrome G89.4 [facility] [id number] [place] [address] 20218- 5731 Oct, [facility] [id number] [place] [address] 70559- 0502 Oct, Chronic pain syndrome G89.4 ; Pain in right knee M25.561 ; History of Clostridium difficile Z87.19 ; Iron deficiency anemia, unspecified iron deficiency anemia type D50.9 ; Peripheral vascular disease, unspecified I73.9 and Atrial fibrillation I48.91 [facility] [place] [id number] [place] [address] 57301- 6423 Oct, [facility] [place] [id number] [place] [address] 10787- 1823 Oct, Chronic pain syndrome G89.4 [facility] [place] [id number] [place] [address] 44903- 6804 Sep, [facility] [place] [id number] [place] [address] 91712- 1775 Sep, Depression, unspecified depression type F32.9 ; Chronic bronchitis, unspecified chronic bronchitis type J42 ; Chronic pain syndrome G89.4 and Anxiety F41.9 [facility] [address] [id number] Sep, History of Clostridium difficile infection Z86.19 and History of stroke Z86.73 [facility] [id number] [place] [address] [id number] Sep, Anxiety F41.9 [facility] [id number] [place] [address] 35135- 4694 Sep, Chronic pain syndrome G89.4 [facility] [address] [address]- 7655 Sep, [facility] [id number] [place] [address] [id number] Sep, [facility] [address] [address]- 5805 Aug, Anxiety F41.9 [facility] [id number] [place] [address] 61568 2546 Aug, Anxiety F41.9 [facility] [id number] [place] [address] 58434- 6736 Aug, [facility] [id number] [place] [address] 23264- 2878 14 Aug, 2016 Acute knee pain, unspecified laterality M25.569 [facility] [id number] [place] [address] 30924- 9494 Aug, [facility] [id number] [place] [address] 74239- 1332 Aug, Chronic pain syndrome G89.4 [facility] [id number] [place] [address] 24851- 6894 Aug, [facility] [address] [address]- 6802 Aug, [facility] [id number] [place] [address] 62467- 7662 Jul, [facility] [address], [place] [address]- 8759 Jul, Anxiety F41.9 [facility] [address], [place] [address]- 9370 Jul, Clostridium difficile diarrhea A04.7 [facility] [address] [id number] Jul, Clostridium difficile diarrhea A04.7 ; Chronic pain syndrome G89.4 ; Chronic obstructive pulmon disease w acute lower resp infct J44.0 and Pain in right knee M25.561 [facility] [id number] [place] [address] [id number] Jul, [facility] [address], [place] [address] -5117 Jul, Anxiety F41.9 and Chronic pain syndrome G89.4 [facility] [id number] [place] [address] 08589- 4364 Jun, Anxiety F41.9 [facility] [id number] [place] [address] 10352- 6350 Jun, Rheumatoid arthritis 714.0 [facility] [id number] [place] [address] 02036- 0329 Jun, Chronic pain syndrome G89.4 [facility] [id number] [place] [address] 08164- 8691 Jun, [facility] [id number] [place] [address] 14570- 2401 Jun, [facility] [id number] [place] [address] 77389- 5732 Jun, History of pneumonia Z87.01 and History of Clostridium difficile Z87.19 [facility] [address] [place] [address] 83472- 6971 Jun, [facility] [id number] [place] [address] 20111- 7895 May, [facility] [address] [address]- 4767 May, Anxiety F41.9 [facility] [id number] [place] [address] 89453- 7130 May, Chronic pain syndrome G89.4 [facility] [id number] [place] [address] 30306- 0859 May, Chronic bronchitis, unspecified chronic bronchitis type J42 [facility] [address], [place] [address]- 3903 May, [facility] [id number] [place] [address] 19318- 7892 May, C. difficile diarrhea A04.7 ; Peripheral edema R60.9 ; COPD (chronic obstructive pulmonary disease) J44.9 ; Rheumatoid arthritis, involving unspecified site, unspecified rheumatoid factor presence M06.9 ; Pain in right knee M25.561 ; Pain in left knee M25.562 and Other chronic pain G89.29 [facility] [id number] [place] [address] 12125- 7659 May, [facility] [id number] [place] [address] 58250- 3526 May, [facility] [id number] [place] [address] 77807- 5011 May, Anxiety F41.9 [facility] [id number] [place] [address] 13294- 4166 Apr, [facility] [id number] [place] [address] 46791- 5650 Apr, Chronic pain syndrome G89.4 [facility] [id number] [place] [address] 29180- 5742 Apr, Leg pain, left M79.605 [facility] [id number] [place] [address] 56914- 4188 Apr, [facility] [id number] [address]- 0823 Apr, [facility] [id number] [place] [address] 92056- 3873 Apr, [facility] [id number] [place] [address] 24888- 7759 Mar, Chronic pain syndrome G89.4 [facility] [id number] [address]- 0385 22 Mar, 2016 Acute frontal sinusitis, recurrence not specified J01.10 [facility] [id number] [place] [address] 51081- 3302 20 Mar, 2016 Iron deficiency anemia, unspecified iron deficiency anemia type D50.9 ; Rheumatoid arthritis with positive rheumatoid factor, involving unspecified site M05.9 and Depression, unspecified depression type F32.9 [facility] [id number] [place] [address] 97111- 4546 13 Mar, 2016 Iron deficiency anemia, unspecified iron deficiency anemia type D50.9 ; Depression, unspecified depression type F32.9 and Rheumatoid arthritis with positive rheumatoid factor, involving unspecified site M05.9 [facility] [id number] [place] [address] 91916- 4129 06 Mar, 2016 [facility] [id number] [place] [address] 54214- 4551 Mar, [facility] [id number] [place] [address] 61153- 2613 Feb, Chronic pain syndrome G89.4 [facility] [id number] [place] [address] 81591- 4230 30 Feb, 2016 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 ; Status post CVA Z86.73 ; Hemiplegia G81.90 and Anemia, unspecified type D64.9 [facility] [id number] [place] [address] 32475- 9050 Feb, [facility] [id number] [place] [address] 30669- 8970 Feb, Anemia, unspecified type D64.9 [facility] [id number] [place] [address] 31480- 5974 Feb, [facility] [id number] [place] [address] 05948- 9172 Feb, Iron deficiency anemia, unspecified iron deficiency anemia type D50.9 [facility] [address] [address]- 2836 Feb, [facility] [id number] [place] [address] 04884- 1308 Feb, Chronic bronchitis, unspecified chronic bronchitis type J42 [facility] [id number] [place] [address] 18047- 5493 Feb, Iron deficiency anemia, unspecified iron deficiency anemia type D50.9 [facility] [id number] [place] [address] 32106- 5732 Feb, Chronic pain syndrome G89.4 [facility] [id number] [place] [address] 83368- 9746 Feb, Anemia, unspecified type D64.9 and Hypoxia R09.02 [facility] [id number] [place] [address] 83790- 9209 Feb, Anemia, unspecified type D64.9 [facility] [id number] [place] [address] 78148- 5699 Jan, [facility] [id number] [place] [address] 95032- 5743 Jan, Anemia, unspecified type D64.9 [facility] [address] [address]- 9190 Jan, [facility] [id number] [place] [address] 00886 2544 Jan, Anemia, unspecified type D64.9 [facility] [id number] [place] [address] 22539- 8171 Jan, Anemia, unspecified type D64.9 [facility] [address] [address]- 0020 Jan, [facility] [id number] [place] [address] [phone]- 7363 Jan, Anemia, unspecified type D64.9 [facility] [id number] [address] Jan, [facility] [id number] [place] [address] 07440- 3947 Jan, [facility] [id number] [place] [address] 51962- 4494 Jan, Chronic pain syndrome G89.4 [facility] [id number] [place] [address] 89628- 8791 Jan, Anemia, unspecified type D64.9 [facility] [id number] [place] [address] 84919- 3218 Jan, Dysthymia F34.1 ; Cervicalgia M54.2 ; Fatigue, unspecified type R53.83 and Depression, unspecified depression type F32.9 [facility] [id number] [place] [address] 75825- 9162 Dec, [facility] [id number] [place] [address] 25932- 3726 Dec, Anxiety F41.9 [facility] [id number] [place] [address] 43727- 9193 Dec, Chronic pain syndrome G89.4 [facility] [id number] [place] [address] [phone]- [phone] November, [facility] [id number] [place] [address] 32714- 7614 November, Edema R60.9 and Dizziness R42 [facility] [id number] [place] [address] 16860- 5003 November, [facility] [id number] [place] [address] 73865- 4246 November, [facility] [id number] [place] [address] 79759- 8019 November, COPD (chronic obstructive pulmonary disease) J44.9 ; Increased tracheal secretions J39.8 and Edema R60.9 [facility] [address] [id number] [place] [address] 32232 -7400 Oct, [facility] [id number] [place] [address] 70919 -2415 Oct, Shortness of breath R06.02 and Edema R60.9 [facility] [id number] [place] [address] 19914- 1266 Oct, Chronic bronchitis, unspecified chronic bronchitis type J42 ; Peripheral vascular disease, unspecified I73.9 ; Rheumatoid arthritis M06.9 and Atrial fibrillation I48.91 [address] [id number] [place] [address] 33930- 4996 Oct, [place] [id number] [place] [address] 36208- 8638 Oct, [facility] [id number] [place] [address] 41456- 5889 Oct, [facility] [id number] [place] [address] 25919- 6124 Oct, [facility] [id number] [place] [address] 08099 -7793 Oct, COPD exacerbation J44.1 [facility] [id number] [place] [address] 54346- 3243 Sep, [facility] [id number] [place] [address] 34978- 8105 Sep, [place] [id number] [place] [address] 98015- 7547 Sep, [facility] [id number] [place] [address] 88289- 3899 Aug, [place] [id number] [place] [address] 07624- 1983 Aug, 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 and PVD (peripheral vascular disease ) I73.9 [facility] [id number] [place] [address] 34062- 5201 Aug, Bronchitis J40 ; COPD (chronic obstructive pulmonary disease ) J44.9 and Dysthymia F34.1 [facility] [id number] [place] [address] 07983- 3806 Aug, [facility] [address] 67212- 9851 Jul, [facility] [id number] [place] [address] 85841- 6282 Jul, [facility] [id number] [place] [address] 95712- 0441 Jul, [facility] [id number] [place] [address] 11043- 4328 Jun, [facility] [id number] [place] [address] 66380- 5189 Jun, [facility] [id number] [place] [address] 69879- 6048 Jun, Peripheral vascular disease I73.9 [facility] [id number] [place] [address] 12010- 3139 Jun, [facility] [id number] [place] [address] 00186- 1335 Jun, [facility] [id number] [place] [address] 01939- 6158 Jun, Leg pain, left M79.605 ; Dysphagia, unspecified dysphagia R13.10 ; Insomnia, unspecified type G47.00 ; PVD (peripheral vascular disease) I73.9 and 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 [facility] [id number] [place] [address] 31186- 5996 May, [facility] [id number] [place] [address]- 7761 May, [facility] [address] [facility] [id number] [place] [address]- 1919 May, [facility] [address] [facility] [id number] [place] [address]- 8051 May, [facility] [id number] [place] [address], [place] [address]- 2277 May, [facility] [address] [facility] [id number] [place] [address]- 5415 Apr, [facility] [id number] [place] [address], [place] [address]- 5916 Apr, [facility] [id number] [place] [address]- 9871 Mar, [facility] [id number] [place] [address], [place] [address]- 7461 Mar, [facility] [id number] [address]- 6729 Feb, [facility] [id number] [address]- 9940 Feb, Nicotine abuse 305.1 ; Arthralgia 719.40 and 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 [facility] [id number] [address]- 9628 Feb, [facility] [id number] [address]- 7771 Jan, [facility] [id number] [address]- 0941 Jan, [facility] [id number] [address]- 1047 Jan, [facility] [id number] [address]- 0328 Jan, [facility] [id number] [address]- 8426 Jan, 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 ; Rheumatoid arthritis 714.0 ; Hypertension 401.9 ; GERD (gastroesophageal reflux disease) 530.81 ; Nicotine addiction 305.1 and Leukocytosis 288.60 [facility] [id number] [address]- 4266 Jan, 2014 [facility] [id number] [address]- 1837 Jan, [facility] [id number] [address]- 5514 Jan, [facility] [id number] [address]- 2521 Jan, [facility] [id number] [address]- 3325 Jan, [facility] [id number] [address]- 2590 Dec, [facility] [id number] [address]- 6171 Dec, [facility] [id number] [address]- 1132 Dec, [facility] [id number] [address]- 9463 Dec, [facility] [id number] [address]- 9927 November, [facility] [id number] [address]- 6834 November, [facility] [id number] [address]- 5926 November, Shortness of breath 786.05 [facility] [id number] [address]- 6098 November, Rheumatoid arthritis 714.0 [facility] [id number] [address]- 4407 November, 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 [facility] [id number] [place] [address] 43816- 3167 November, Neuropathy 355.9 ; Insomnia 780.52 ; Dysthymia 300.4 ; Shortness of breath 786.05 ; Rheumatoid arthritis 714.0 and Nausea 787.02 [facility] [id number] [place] [address] 75249- 6410 November, [facility] [id number] [place] [address] 28981- 0116 November, [facility] [id number] [place] [address] 87976- 0873 Oct, [facility] [id number] [place] [address] 10259- 9200 Oct, [facility] [id number] [place] [address] 38771- 2328 Oct, [facility] [id number] [place] [address] 25261- 4529 Oct, [facility] [id number] [place] [address] 36377- 3396 Sep, [facility] [id number] [address]- 7533 Sep, [facility] [id number] [place] [address] 79740- 4181 Sep, [facility] [id number] 0514 Sep, [facility] [id number] [place] [address] 11604- 5091 Sep, [facility] [id number] 6870 Sep, [facility] [address] [place] [address]- 5426 Sep, [facility] [place] [facility] [address] [id number] [place] [address]- 7692 Sep, [facility] [place] [facility] [address] [id number] [place] [address]- 4466 Aug, [facility] [place] [facility] [address] [id number] [place] [address]- 6776 Aug, 2014 [facility] [place] [facility] [address] [id number] [place] [address]- 2620 Aug, [facility] [place] [facility] [address] [id number] [place] [address]- 0316 Aug, 2014 [facility] [place] [facility] [address] [facility] [id number] [place] [address]- 5177 Aug, [facility] [place] [facility] [address] [facility] [id number] [place] [address]- 5416 Aug, [facility] [place] [facility] [address] [id number] [place] [address]- 4887 Jul, [facility] [place] [facility] [address] [id number] [place] [address]- 2003 Jul, [facility] [place] [facility] [address] [facility] [id number] [place] [address]- 4083 Jul, [facility] [place] [facility] [address] [id number] [place] [address]- 5028 Jul, [facility] [place] [facility] [address] [id number] [place] [address] 2543 Jul, [facility] [place] [facility] [address] [id number] [place] [address]- 9586 Jul, [facility] [place] [facility] [address] [facility] [id number] [place] [address]- 7646 Jul, [facility] [place] [facility] [address] [facility] [id number] [place] [address]- 8257 Jul, [facility] [place] [facility] [address] [id number] [place] [address]- 9415 Jul, [facility] [place] [facility] [address] [id number] [place] [address]- 7738 Jul, [facility] [place] [facility] [address] [id number] [place] [address]- 7654 Jun, [facility] [place] [facility] [address] [id number] [place] [address]- 3363 Jun, [facility] [place] [facility] [address] [id number] [place] [address]- 9228 Jun, [facility] [place] [facility] [address] [id number] [place] [address]- 7487 Jun, [facility] [place] [facility] [address] [id number] [place] [address]- 9959 Jun, [facility] [place] [facility] [address] [id number] [place] [address]- 7289 Jun, [facility] [place] [facility] [address] [id number] [place] [address]- 7043 Jun, [facility] [place] [facility] [address] [id number] [place] [address]- 6951 Jun, [facility] [place] [facility] [address] [id number] [place] [address]- 6004 Jun, [facility] [place] [facility] [address] [id number] [place] [address]- 6321 Jun, [facility] [place] [facility] [address] [id number] [place] [address]- 1730 Jun, [facility] [place] [facility] [address] [id number] [place] [address]- 0286 Jun, [facility] [place] [facility] [address] [id number] [place] 7395 Jun, [facility] [place] [facility] [address] [id number] [place] [address]- 5382 Jun, [facility] [place] [facility] [address] [id number] [place] [address]- 4309 Jun, [facility] [place] [facility] [address] [id number] [place] [address]- 2325 Jun, [facility] [place] [facility] [address] [id number] [place] [address]- 1164 May, [facility] [place] [facility] [address] [id number] [place] [address]- 7814 May, [facility] [place] [facility] [address] [id number] [place] [address]- 1179 May, [facility] [place] [facility] [address] [id number] [place] [address]- 5085 May, [facility] [place] [facility] [address] [id number] [place] [address]- 0523 May, [facility] [place] [facility] [address] [id number] [place] [address]- 8649 May, [facility] [place] [facility] [address] [id number] [place] [address]- 7768 May, [facility] [place] [facility] [address] [facility] [id number] [place] [address]- 4047 May, [facility] [place] [facility] [address] [id number] [place] [address]- 1565 May, [facility] [place] [facility] [address] [id number] [address]- 9371 Apr, [facility] [place] [facility] [address] [id number] [place] [address]- 3993 Apr, [facility] [place] [facility] [address] [id number] [place] [address]- 9042 Apr, [facility] [place] [facility] [address] [id number] [address]- 9490 Apr, [facility] [place] [facility] [address] [id number] [place] [address]- 0009 Apr, [facility] [place] [facility] [address] [id number] [place] [address]- 6160 Apr, [facility] [place] [facility] [address] [id number] [place] [address]- 4627 Apr, [facility] [place] [facility] [address] [id number] [place] [address]- 4851 Apr, [facility] [place] [facility] [address] [id number] [place] [address]- 2183 Apr, [facility] [place] [facility] [address] [id number] [place] [address]- 6637 Apr, [facility] [place] [facility] [address] [id number] [place] [address]- 7055 Apr, [facility] [place] [facility] [address] [id number] [place] [address]- 9167 Apr, [facility] [place] [facility] [address] [id number] [place] [address]- 3794 22 Mar, 2014 [facility] [place] [facility] [address] [id number] [place] [address]- 7954 22 Mar, 2014 [facility] [place] [facility] [address] [id number] [place] [address]- 4549 19 Mar, 2014 [facility] [place] [facility] [address] [id number] [place] [address]- 7367 19 Mar, 2013 [facility] [place] [facility] [address] [id number] [place] [address]- 6759 11 Mar, 2014 [facility] [place] [facility] [address] [id number] [place] [address]- 2546 11 Mar, 2013 [facility] [place] [facility] [address] [id number] [place] [address]- 4949 11 Mar, 2013 [facility] [place] [facility] [address] [id number] [place] [address]- 9952 Mar, [facility] [place] [facility] [address] [id number] [place] [address]- 6368 Mar, [facility] [place] [facility] [address] [id number] [place] [address]- 6676 Mar, [facility] [place] [facility] [address] [id number] [place] [address]- 2672 Feb, [facility] [place] [facility] [address] [id number] [place] [address]- 2098 Feb, [facility] [place] [facility] [address] [id number] [place] [address]- 5454 Feb, [facility] [place] [facility] [address] [id number] [place] [address]- 5331 Feb, [facility] [place] [facility] [address] [id number] [place] [address]- 5460 Feb, [facility] [place] [facility] [address] [id number] [place] [address]- 1139 Feb, [facility] [place] [facility] [address] [id number] [place] [address]- 1891 Feb, [facility] [place] [facility] [address] [id number] [place] [address]- 2494 Feb, [facility] [place] [facility] [address] [id number] [place] [address]- 4465 Feb, [facility] [place] [facility] [address] [id number] [place] [address]- 7950 Feb, [facility] [place] [facility] [address] [id number] [place] [address]- 2858 Feb, [facility] [place] [facility] [address] [id number] [place] [address]- 4457 Feb, [facility] [place] [facility] [address] [id number] [place] [address]- 7615 Feb, [facility] [place] [facility] [address] [id number] [place] [address]- 9162 Feb, [facility] [place] [facility] [address] [id number] [place] [address]- 4232 Feb, [facility] [place] [facility] [address] [id number] [place] [address]- 0458 Feb, [facility] [place] [facility] [address] [id number] [place] [address]- 3843 Jan, [facility] [place] [facility] [address] [id number] [place] [address]- 7201 Jan, [facility] [place] [facility] [address] [id number] [place] [address]- 8803 Jan, [facility] [place] [facility] [address] [id number] [place] [address]- 1976 Jan, [facility] [place] [facility] [address] [id number] [place] [address]- 7482 Jan, [facility] [place] [facility] [address] [id number] [place] [address]- 7537 Jan, [facility] [place] [facility] [address] [id number] [place] [address]- 3320 Dec, [facility] [place] [facility] [address] [id number] [place] [address]- 3689 Dec, [facility] [place] [facility] [address] [id number] [place] [address]- 3788 Dec, [facility] [place] [facility] [address] [id number] [place] [address]- 4522 Dec, [facility] [place] [facility] [address] [id number] [place] [address]- 0318 Dec, [facility] [place] [facility] [address] [id number] [place] [address]- 2806 Dec, [facility] [place] [facility] [address] [id number] [place] [address]- 3820 Dec, [facility] [place] [facility] [address] [id number] [place] [address]- 1307 Dec, [facility] [place] [facility] [address] [id number] [place] [address]- 9427 November, [facility] [place] [facility] [address] [id number] [place] [address]- 6781 November, [facility] [place] [facility] [address] [id number] [place] [address]- 7001 November, [facility] [place] [facility] [address] [id number] [place] [address]- 5137 November, [facility] [place] [facility] [address] [id number] [place] [address]- 9991 November, [facility] [place] [facility] [address] [id number] [place] [address]- 2831 November, [facility] [place] [facility] [address] [id number] [place] [address]- 6236 Oct, [facility] [place] [facility] [address] [id number] [place] [address]- 6172 Oct, [facility] [place] [facility] [address] [id number] [place] [address]- 1418 Oct, [facility] [place] [facility] [address] [id number] [place] [address]- 8341 Oct, [facility] [place] [facility] [address] [id number] [place] [address]- 6447 Sep, [facility] [place] [facility] [address] [id number] [place] [address]- 2222 Sep, [facility] [place] [facility] [address] [id number] [place] [address]- 8559 Sep, [facility] [place] [facility] [address] [id number] [place] [address]- 1497 Sep, [facility] [place] [facility] [address] [id number] [place] [address]- 1071 Sep, [facility] [place] [facility] [address] [id number] [place] [address]- 7610 Sep, [facility] [place] [facility] [address] [id number] [place] [address]- 2306 Aug, [facility] [place] [facility] [address] [id number] [place] [address]- 9056 Aug, [facility] [place] [facility] [address] [id number] [place] [address]- 7497 Aug, [facility] [place] [facility] [address] [id number] [place] [address] Aug, [facility] [place] [facility] [address] [id number] [place] [address] Aug, [facility] [place] [facility] [address] [id number] [place] [address] Aug, [facility] [place] [facility] [address] [id number] [place] [address] Jul, [facility] [place] [facility] [address] [id number] [place] [address] Jul, [facility] [place] [facility] [address] [id number] [place] [address] Jul, [facility] [place] [facility] [address] [id number] [place] [address] Jul, [facility] [place] [facility] [address] [id number] [place] [address] Jul, [facility] [place] [facility] [address] [id number] [place] [address] Jul, [facility] [place] [facility] [address] [id number] [place] [address] Jul, [facility] [place] [facility] [address] [id number] [place] [address] Jul, [facility] [place] [facility] [address] [id number] [place] [address] Jul, [facility] [address] [id number] [place] [address] Jul, [facility] [address] [id number] [place] [address] Jul, [facility] [address] [id number] [place] [address] Jul, [facility] [address] [id number] [place] [address] Jul, [facility] [address] [id number] [place] [address] 2017 Jul, [facility] [address] [id number] [place] [address] Jul, [facility] [address] [id number] [place] [address] Jun, [facility] [address] [id number] [place] [address] Jun, [facility] [address] [id number] [place] [address] Jun, [facility] [address] [id number] [place] [address] Jun, [facility] [address] [id number] [place] [address] May, [facility] [address] [id number] [place] [address] May, [facility] [address] [id number] [place] [id number] May, [facility] [address] [id number] [place] [address] May, [facility] [address] [id number] [place] [address] May, [facility] [address] [facility] [id number] [address] May, [facility] [address] [id number] [address] May, [facility] [id number] [address] May, [facility] [id number] [address] May, [facility] [id number] [id number] May, [facility] [id number] [address] May, [facility] [id number] [id number] May, [facility] [address] [id number], [place] [address] May, [facility] [address] [id number] [id number] May, [facility] [address] [id number] [address] May, IMMUNIZATIONS No Known Immunizations SOCIAL HISTORY Never Assessed REASON FOR VISIT EMR-[facility] PLAN OF CARE VITAL SIGNS MEDICATIONS Unknown [...] Diarrhea, leukocytosis--[facility] 01/08/16 Hospitalization History pseudomemranous colitis, sepsis--[facility] 04/21/2016 Hospitalization History C Diff--[facility] 05/10/2016 Hospitalization History sepsis, pneumonia, diarrhea--[facility] 06/11/16 Hospitalization History recurrent cdiff, pneumonia-[facility] 07/22/16 Hospitalization History sepsis,pneumonia- [facility]
--- OUTSIDE RECORDS SUMMARY | 2018-10-30 19:36 | XMS REPORT ---
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 587722687 Problem Peripheral vascular disease, unspecified I73.9 Active 484633401 Problem Dysphagia, unspecified dysphagia R13.10 Active 87086315 Problem Depression, unspecified depression type F32.9 Active 11812374 Problem Anxiety F41.9 Active 94548708 Problem COPD (chronic obstructive pulmonary disease) J44.9 Active 85751876 Problem Hypertension I10 Active 32174663 Problem Atrial fibrillation I48.91 Active 67950833 Problem Rheumatoid arthritis M06.9 Active 46318892 Problem Tobacco abuse, 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 165288953 Problem Dysthymia F34.1 Active 92130965 Problem Chronic pain syndrome G89.4 Active 037177752 Problem Edema R60.9 Active 978645213 Problem Anemia, unspecified type D64.9 Active 622020096 Problem Iron deficiency anemia, unspecified iron deficiency anemia type D50.9 Active 41377553 Problem Other chronic pain G89.29 Active 49551665 Problem History of oral cancer Z85.819 Active 586601979 Problem 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 334800702 Problem Neuropathy G62.9 Active 402451059 Problem History of cerebrovascular accident with current residual effects I69.90 Active 559543266 Problem Osteoarthritis of foot M19.079 Active 807150996 Problem Chronic obstructive pulmon disease w acute lower resp infct J44.0 Active 000865985 Problem Primary insomnia F51.01 Active 1648213 Problem Insomnia, unspecified G47.00 Active 067648884 Problem Seasonal allergic rhinitis due to pollen J30.1 Active 48302195 ALLERGIES No Information ENCOUNTERS Encounter Location Date Diagnosis [facility] [id number] [place] [address] 04190- 9771 Sep, Chronic pain syndrome G89.4 [facility] [id number] [place] [address] 04461- 1864 Sep, Leg pain, left M79.605 ; Right leg pain M79.604 and Reactive cervical nodes R59.0 [facility] [address] 85134- 7768 14 Sep, 2018 [place] [address] 61990- 1143 Sep, Neuropathy G62.9 [facility] [address] [id number] Sep, [place] [address] 73945- 7494 Sep, Lymphadenopathy of left cervical region R59.0 [facility] [id number] [place] [address] 53714- 5152 Sep, Lymphadenopathy of left cervical region R59.0 and Neuropathy G62.9 [facility] [id number] [place] [address] 52833- 5808 Aug, Chronic pain syndrome G89.4 [facility] [id number] [place] [address] 65174- 0360 Aug, [facility] [id number] [place] [address] 48513- 6308 Aug, Peripheral vascular disease, unspecified I73.9 ; Other chronic pain G89.29 ; Chronic obstructive pulmon disease w acute lower resp infct J44.0 and Primary insomnia F51.01 [facility] [id number] [place] [address] 48620- 7760 Aug, Chronic pain syndrome G89.4 [facility] [id number] [place] [address] 54386- 5943 Jul, Chronic pain syndrome G89.4 [facility] [address] 42865- 8447 Jun, Chronic pain syndrome G89.4 [facility] [id number] [place] [address] 00222- 7321 May, Chronic pain syndrome G89.4 [facility] [address] 76979 -2038 Apr, Cough R05 and Viral illness B34.9 [facility] [address] 65827- 3476 Apr, Encounter for immunization Z23 [facility] [address] 27877- 2487 Apr, Chronic pain syndrome G89.4 [facility] [address] 96461 -9194 Apr, Left acute otitis media H66.92 [facility] [id number] [place] [address] 89016- 1213 Mar, Rheumatoid arthritis M06.9 ; Other chronic pain G89.29 ; History of oral cancer Z85.819 and History of tachycardia Z87.898 [facility] [id number] [place] [address] 20416- 8657 Mar, Chronic pain syndrome G89.4 [facility] [id number] [place] [address] 50940- 9718 Feb, Chronic pain syndrome G89.4 [facility] [id number] [place] [address] 03426- 6886 Feb, Chronic pain syndrome G89.4 [facility] [id number] [place] [address] 47681- 9479 Jan, Chronic pain syndrome G89.4 [facility] [address] [address]- 3990 Jan, [facility] [address] [address]- 0698 Dec, Chronic pain syndrome G89.4 [facility] [address] [address]- 3844 November, Chronic pain syndrome G89.4 [facility] [address] [address] 5040 November, [facility] [address] [address]- 0466 Oct, Chronic pain syndrome G89.4 [facility] [address], [place] [address]- 6650 Oct, [facility] [id number] [place] [address] 70325- 5832 Oct, Chronic pain syndrome G89.4 [facility] [address] [address]- 1797 Oct, [facility] [address], [place] [address]- 9730 Oct, [facility] [address] [address]- 3692 Sep, Left upper quadrant pain R10.12 ; Chronic pain syndrome G89.4 ; Left lower quadrant pain R10.32 ; Other chronic pain G89.29 ; Sacrococcygeal disorders, not elsewhere classified M53.3 and Seasonal allergic rhinitis due to pollen J30.1 [facility] [address] [address]- 6502 Sep, Chronic pain syndrome G89.4 [facility] [address] [address]- 2613 Sep, [facility] [address] [address]- 2006 Aug, Chronic pain syndrome G89.4 [facility] [address], [place] [address]- 7503 Aug, [facility] [id number] [place] [address] 21179- 9775 Aug, Insomnia, unspecified G47.00 [facility] [id number] [place] [address] 24114- 6515 Jul, [facility] [id number] [place] [address] 38238- 3877 Jul, [facility] [id number] [place] [address] 56392- 6568 Jul, Chronic pain syndrome G89.4 [facility] [id number] [place] [address] 15772- 0240 Jun, Chronic pain syndrome G89.4 [facility] [id number] [place] [address] 44435- 8457 Jun, Chronic pain syndrome G89.4 [facility] [address] [place] [address] 02333- 4303 May, [facility] [id number] [place] [address] 06482- 4569 May, Shortness of breath R06.02 ; Peripheral vascular disease, unspecified I73.9 ; Pain in right knee M25.561 ; Other chronic pain G89.29 ; Chest wall pain R07.89 ; Chronic pain syndrome G89.4 ; Primary insomnia F51.01 and Ear pain, left H92.02 [facility] [address] [place] [address] 53516- 1466 May, Anxiety F41.9 [facility] [address] [place] [address] 61041- 6088 09 Apr, 2017 Pneumonia due to infectious organism, unspecified laterality , unspecified part of lung J18.9 ; Hypoxia R09.02 ; Bradycardia R00.1 ; History of Clostridium difficile Z87.19 and Primary insomnia F51.01 [facility] [address] [place] [address] 97928- 7048 Apr, Anxiety F41.9 [facility] [id number] [place] [address] 67641- 4667 Apr, [facility] [id number] [place] [address] 58213- 3031 Mar, Anxiety F41.9 [facility] [id number] [place] [address] 44945- 7499 Feb, [facility] [address] 92014- 3898 Feb, [facility] [id number] [place] [address] 56091- 1231 Feb, Abnormal finding on urinalysis R82.90 [facility] [id number] [place] [address] 52737- 3498 Feb, [facility] [id number] [place] [address] 61003- 7318 Feb, Shortness of breath R06.02 ; Tachycardia R00.0 ; Cough R05 ; Ill feeling R68.89 and Abnormal finding on urinalysis R82.90 [facility] [id number] [place] [address] 74808- 8607 Feb, Anxiety F41.9 [facility] [id number] [place] [address] 46156 -1360 Feb, Sore throat J02.9 and Acute diffuse otitis externa of left ear H60.312 [facility] [id number] [place] [address] 77298- 9145 Jan, [facility] [id number] [place] [address] 95268- 6850 Jan, [facility] [address] [id number] Jan, [facility] [address] [address]- 5915 Jan, Depression, unspecified depression type F32.9 ; Chronic bronchitis, unspecified chronic bronchitis type J42 ; Chronic pain syndrome G89.4 and Anxiety F41.9 [facility] [address], [place] [address]- 8086 Jan, [facility] [id number] [place] [address] 29245- 6906 Jan, [facility] [address] [place] [address] 76242- 5250 Jan, [facility] [id number] [place] [address] [id number] Jan, Chronic pain syndrome G89.4 [facility] [address] [address] Dec, History of right knee surgery Z98.890 [facility] [address] [place] [address] 83144- 5857 Dec, [facility] [id number] [place] [address] 00794- 9595 Dec, Chronic pain syndrome G89.4 [facility] [address] [place] [address] 04906- 4030 November, Anxiety F41.9 [facility] [address] [place] [address] 72967 -9700 November, Acute cystitis without hematuria N30.00 [facility] [address] [place] [address] 34640 -2125 November, Fever, unspecified fever cause R50.9 and Acute cystitis without hematuria N30.00 [facility] [address] [address]- 1661 November, Chronic pain syndrome G89.4 [facility] [id number] [place] [address] 46178- 0856 Oct, Anxiety F41.9 [facility] [address] [place] [address] 35557- 1970 Oct, Chronic pain syndrome G89.4 [facility] [address] [place] [address] 42533- 4874 Oct, Chronic pain syndrome G89.4 [facility] [id number] [place] [address] 71580- 0704 Oct, [facility] [id number] [place] [address] 66460- 4098 Oct, Chronic pain syndrome G89.4 ; Pain in right knee M25.561 ; History of Clostridium difficile Z87.19 ; Iron deficiency anemia, unspecified iron deficiency anemia type D50.9 ; Peripheral vascular disease, unspecified I73.9 and Atrial fibrillation I48.91 [facility] [address] [place] [address] 53265- 6083 Oct, [facility] [address] [place] [address] 07924- 8382 Oct, Chronic pain syndrome G89.4 [facility] [address] [place] [address] 01524- 1475 Sep, [facility] [place] [address] [place] [address] 70119- 3156 Sep, Depression, unspecified depression type F32.9 ; Chronic bronchitis, unspecified chronic bronchitis type J42 ; Chronic pain syndrome G89.4 and Anxiety F41.9 [facility] [address] [id number] Sep, History of Clostridium difficile infection Z86.19 and History of stroke Z86.73 [facility] [id number] [place] [address] [id number] Sep, Anxiety F41.9 [facility] [address] [place] [address] 77624- 6930 Sep, Chronic pain syndrome G89.4 [facility] [address], [place] [address]- 1849 Sep, [facility] [id number] [place] [address] [id number] Sep, [facility] [address], [place] [address]- 0603 Aug, Anxiety F41.9 [facility] [address] [place] [address] 39875 2546 Aug, Anxiety F41.9 [facility] [address] [place] [address] 96487- 8546 Aug, [facility] [address] [place] [address] 46820- 7942 14 Aug, 2016 Acute knee pain, unspecified laterality M25.569 [facility] [address] [place] [address] 40892- 2703 Aug, [facility] [address] [place] [address] 27657- 8086 Aug, Chronic pain syndrome G89.4 [facility] [address] [place] [address] 03473- 1699 Aug, [facility] [address], [place] [address]- 9107 Aug, [facility] [address] [place] [address] 92546- 7752 Jul, [facility] [address], [place] [address]- 0832 Jul, Anxiety F41.9 [facility] [address], [place] [address]- 2972 Jul, Clostridium difficile diarrhea A04.7 [facility] [address] [id number] Jul, Clostridium difficile diarrhea A04.7 ; Chronic pain syndrome G89.4 ; Chronic obstructive pulmon disease w acute lower resp infct J44.0 and Pain in right knee M25.561 [facility] [id number] [place] [address] [id number] Jul, [facility] [address], [place] [address] -4560 Jul, Anxiety F41.9 and Chronic pain syndrome G89.4 [facility] [id number] [place] [address] 51908- 6317 Jun, Anxiety F41.9 [facility] [address] [place] [address] 99564- 6593 Jun, Rheumatoid arthritis 714.0 [facility] [id number] [place] [address] 10654- 4355 Jun, Chronic pain syndrome G89.4 [facility] [address] [place] [address] 41354- 8074 Jun, [facility] [address] [place] [address] 96059- 0392 Jun, [facility] [id number] [place] [address] 79138- 3099 Jun, History of pneumonia Z87.01 and History of Clostridium difficile Z87.19 [facility] [address] [place] [address] 74293- 2949 Jun, [facility] [address] [place] [address] 49000- 4481 May, [facility] [address], [place] [address]- 8700 May, Anxiety F41.9 [facility] [address] [place] [address] 01813- 3498 May, Chronic pain syndrome G89.4 [facility] [address] [place] [address] 87622- 0621 May, Chronic bronchitis, unspecified chronic bronchitis type J42 [facility] [address], [place] [address]- 5019 May, [facility] [id number] [place] [address] 52397- 5860 May, C. difficile diarrhea A04.7 ; Peripheral edema R60.9 ; COPD (chronic obstructive pulmonary disease) J44.9 ; Rheumatoid arthritis, involving unspecified site, unspecified rheumatoid factor presence M06.9 ; Pain in right knee M25.561 ; Pain in left knee M25.562 and Other chronic pain G89.29 [facility] [id number] [place] [address] 67005- 8404 May, [facility] [id number] [place] [address] 90881- 1691 May, [facility] [id number] [place] [address] 06507- 2424 May, Anxiety F41.9 [facility] [id number] [place] [address] 29771- 3776 Apr, [facility] [id number] [place] [address] 24686- 2668 Apr, Chronic pain syndrome G89.4 [facility] [id number] [place] [address] 26493- 7576 Apr, Leg pain, left M79.605 [facility] [address] [place] [address] 42096- 6738 Apr, [facility] [address] [address]- 8047 Apr, [facility] [id number] [place] [address] 58241- 9006 Apr, [facility] [address] [place] [address] 87479- 9629 Mar, Chronic pain syndrome G89.4 [facility] [address] [address]- 1655 22 Mar, 2016 Acute frontal sinusitis, recurrence not specified J01.10 [facility] [id number] [place] [address] 49752- 9888 20 Mar, 2016 Iron deficiency anemia, unspecified iron deficiency anemia type D50.9 ; Rheumatoid arthritis with positive rheumatoid factor, involving unspecified site M05.9 and Depression, unspecified depression type F32.9 [facility] [id number] [place] [address] 07807- 4966 13 Mar, 2016 Iron deficiency anemia, unspecified iron deficiency anemia type D50.9 ; Depression, unspecified depression type F32.9 and Rheumatoid arthritis with positive rheumatoid factor, involving unspecified site M05.9 [facility] [id number] [place] [address] 53844- 6440 06 Mar, 2016 [facility] [id number] [place] [address] 38886- 2126 Mar, [facility] [id number] [place] [address] 90221- 7042 Feb, Chronic pain syndrome G89.4 [facility] [id number] [place] [address] 37708- 1265 30 Feb, 2016 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 ; Status post CVA Z86.73 ; Hemiplegia G81.90 and Anemia, unspecified type D64.9 [facility] [address] [place] [address] 46887- 5865 Feb, [facility] [id number] [place] [address] 17461- 8019 Feb, Anemia, unspecified type D64.9 [facility] [address] [place] [address] 99104- 8389 Feb, [facility] [address] [place] [address] 54984- 3388 Feb, Iron deficiency anemia, unspecified iron deficiency anemia type D50.9 [facility] [address], [place] [address]- 8463 Feb, [facility] [id number] [place] [address] 13566- 4716 Feb, Chronic bronchitis, unspecified chronic bronchitis type J42 [facility] [id number] [place] [address] 18843- 8152 Feb, Iron deficiency anemia, unspecified iron deficiency anemia type D50.9 [facility] [address] [place] [address] 87684- 4869 Feb, Chronic pain syndrome G89.4 [facility] [id number] [place] [address] 89566- 5316 Feb, Anemia, unspecified type D64.9 and Hypoxia R09.02 [facility] [id number] [place] [address] 23710- 5993 Feb, Anemia, unspecified type D64.9 [facility] [address] [place] [address] 57262- 4738 Jan, [facility] [id number] [place] [address] 15170- 4670 Jan, Anemia, unspecified type D64.9 [facility] [address], [place] [address]- 2484 Jan, [facility] [address] [place] [address] 18404 2542 Jan, Anemia, unspecified type D64.9 [facility] [address] [place] [address] 57869- 2392 Jan, Anemia, unspecified type D64.9 [facility] [address], [place] [address]- 5365 Jan, [facility] [address] [place] [address] 29780- 8720 Jan, Anemia, unspecified type D64.9 [facility] [address], [place] [address]- 6808 Jan, [facility] [id number] [place] [address] 61282- 6368 Jan, [facility] [id number] [place] [address] 15213- 2702 Jan, Chronic pain syndrome G89.4 [facility] [id number] [place] [address] 00000- 7917 Jan, Anemia, unspecified type D64.9 [facility] [id number] [place] [address] 53864- 4513 Jan, Dysthymia F34.1 ; Cervicalgia M54.2 ; Fatigue, unspecified type R53.83 and Depression, unspecified depression type F32.9 [facility] [id number] [place] [address] 99218- 0914 Dec, [facility] [id number] [place] [address] 78227- 0456 Dec, Anxiety F41.9 [facility] [id number] [place] [address] 87821- 0562 Dec, Chronic pain syndrome G89.4 [facility] [address] [place] [address] 41263- 7847 November, [facility] [id number] [place] [address] 69486- 7226 November, Edema R60.9 and Dizziness R42 [facility] [id number] [place] [address] 01443- 3426 November, [facility] [id number] [place] [address] 51435- 5294 November, [facility] [id number] [place] [address] 28231- 8290 November, COPD (chronic obstructive pulmonary disease) J44.9 ; Increased tracheal secretions J39.8 and Edema R60.9 [facility] [id number] [place] [address] [phone] -[phone] Oct, [facility] [id number] [place] [address] 51414 -6288 Oct, Shortness of breath R06.02 and Edema R60.9 [facility] [id number] [place] [address] 26040- 8860 Oct, Chronic bronchitis, unspecified chronic bronchitis type J42 ; Peripheral vascular disease, unspecified I73.9 ; Rheumatoid arthritis M06.9 and Atrial fibrillation I48.91 [facility] [id number] [place] [address] 40742- 3293 Oct, [facility] [id number] [place] [address] 75907- 3816 Oct, [facility] [id number] [place] [address] 38035- 8688 Oct, [facility] [id number] [place] [address] 66939- 8444 Oct, [facility] [address] [id number] [place] [address] 38609 -9356 Oct, COPD exacerbation J44.1 [facility] [id number] [place] [address] 49813- 3470 Sep, [facility] [id number] [place] [address] 68180- 4094 Sep, [place] [id number] [place] [address] 19318- 9870 Sep, [facility] [id number] [place] [address] 86988- 6822 Aug, [place] [id number] [place] [address] 93240- 2692 Aug, 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 and PVD (peripheral vascular disease ) I73.9 [facility] [id number] [place] [address] 18467- 1065 Aug, Bronchitis J40 ; COPD (chronic obstructive pulmonary disease ) J44.9 and Dysthymia F34.1 [facility] [id number] [place] [address] 08850- 7466 Aug, [facility] [address] 49927- 6026 Jul, [facility] [id number] [place] [address] 68613- 0165 Jul, [facility] [id number] [place] [address] 92365- 2811 Jul, [facility] [id number] [place] [address] 85327- 8451 Jun, [facility] [id number] [place] [address] 29814- 4681 Jun, [facility] [id number] [place] [address] 57715- 4413 Jun, Peripheral vascular disease I73.9 [facility] [id number] [place] [address] 53390- 3299 Jun, [facility] [id number] [place] [address] 25614- 5207 Jun, [facility] [id number] [place] [address] 07565- 1497 Jun, Leg pain, left M79.605 ; Dysphagia, unspecified dysphagia R13.10 ; Insomnia, unspecified type G47.00 ; PVD (peripheral vascular disease) I73.9 and 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 [facility] [id number] [place] [address] 44486- 5316 May, [facility] [id number] [place] [address]- 8549 May, [facility] [address] [facility] [id number] [place] [address]- 7881 May, [facility] [address] [facility] [id number] [place] [address]- 0023 May, [facility] [id number] [place] [address], [place] [address]- 4511 May, [facility] [address] [facility] [id number] [place] [address]- 2200 Apr, [facility] [id number] [place] [address], [place] [address]- 9372 Apr, [facility] [id number] [place] [address]- 8977 Mar, [facility] [id number] [place] [address], [place] [address]- 4943 Mar, [facility] [id number] [address]- 5367 Feb, [facility] [id number] [address]- 2888 Feb, Nicotine abuse 305.1 ; Arthralgia 719.40 and 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 [facility] [address] [address]- 1829 Feb, [facility] [id number] [address]- 5812 Jan, [facility] [id number], [place] [address]- 4464 Jan, [facility] [id number] [address]- 7862 Jan, [facility] [id number] [address]- 4510 Jan, [facility] [id number] [address]- 7499 Jan, 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 ; Rheumatoid arthritis 714.0 ; Hypertension 401.9 ; GERD (gastroesophageal reflux disease) 530.81 ; Nicotine addiction 305.1 and Leukocytosis 288.60 [facility] [address] [address]- 7438 Jan, 2014 [facility] [id number] [address]- 0645 Jan, [facility] [id number] [address]- 8111 Jan, [facility] [address] [address]- 0294 Jan, [facility] [id number] [address]- 4154 Jan, [facility] [address], [place] [address]- 7342 Dec, [facility] [address] [address]- 1117 Dec, [facility] [id number] [address]- 5774 Dec, [facility] [address] [address]- 8976 Dec, [facility] [address] [address]- 7858 November, [facility] [id number] [address]- 9613 November, [facility] [address] [address]- 7926 November, Shortness of breath 786.05 [facility] [id number] [address]- 6409 November, Rheumatoid arthritis 714.0 [facility] [id number] [address]- 6434 November, 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 [facility] [id number] [place] [address] 22303- 3427 November, Neuropathy 355.9 ; Insomnia 780.52 ; Dysthymia 300.4 ; Shortness of breath 786.05 ; Rheumatoid arthritis 714.0 and Nausea 787.02 [facility] [id number] [place] [address] 98371- 6805 November, [facility] [id number] [place] [address] 73467- 2631 November, [facility] [id number] [place] [address] 90797- 8805 Oct, [facility] [id number] [place] [address] 13952- 9728 Oct, [facility] [id number] [place] [address] 77963- 2297 Oct, [facility] [id number] [place] [address] 18981- 6336 Oct, [facility] [id number] [place] [address] 73815- 1159 Sep, [facility] [address], [place] [address]- 2812 Sep, [facility] [id number] [place] [address] 76930- 2387 Sep, [facility] [address] 7865 Sep, [facility] [id number] [place] [address] 42618- 0089 Sep, [facility] [address] 9665 Sep, [facility] [address] [place] [address]- 9392 Sep, [facility] [place] [facility] [address] [id number] [place] [address]- 4165 Sep, [facility] [place] [facility] [address] [id number] [place] [address]- 7596 Aug, [facility] [place] [facility] [address] [id number] [place] [address]- 9086 Aug, 2014 [facility] [place] [facility] [address] [id number] [place] [address]- 6275 Aug, [facility] [place] [facility] [address] [id number] [place] [address]- 3336 Aug, 2014 [facility] [place] [facility] [address] [facility] [id number] [place] [address]- 0003 Aug, [facility] [place] [facility] [address] [facility] [id number] [place] [address]- 0485 Aug, [facility] [place] [facility] [address] [id number] [place] [address]- 9750 Jul, [facility] [place] [facility] [address] [id number] [place] [address]- 8282 Jul, [facility] [place] [facility] [address] [facility] [id number] [place] [address]- 3596 Jul, [facility] [place] [facility] [address] [id number] [place] [address]- 0399 Jul, [facility] [place] [facility] [address] [id number] [place] [address] 254 Jul, [facility] [place] [facility] [address] [id number] [place] [address]- 2306 Jul, [facility] [place] [facility] [address] [facility] [id number] [place] [address]- 4426 Jul, [facility] [place] [facility] [address] [facility] [id number] [place] [address]- 0856 Jul, [facility] [place] [facility] [address] [id number] [place] [address]- 0149 Jul, [facility] [place] [facility] [address] [id number] [place] [address]- 7111 Jul, [facility] [place] [facility] [address] [id number] [place] [address]- 8778 Jun, [facility] [place] [facility] [address] [id number] [place] [address]- 8631 Jun, [facility] [place] [facility] [address] [id number] [place] [address]- 0406 Jun, [facility] [place] [facility] [address] [id number] [place] [address]- 0019 Jun, [facility] [place] [facility] [address] [id number] [place] [address]- 6683 Jun, [facility] [place] [facility] [address] [id number] [place] [address]- 1629 Jun, [facility] [place] [facility] [address] [id number] [place] [address]- 5748 Jun, [facility] [place] [facility] [address] [id number] [place] [address]- 2472 Jun, [facility] [place] [facility] [address] [id number] [place] [address]- 4493 Jun, [facility] [place] [facility] [address] [id number] [place] [address]- 6878 Jun, [facility] [place] [facility] [address] [id number] [place] [address]- 4375 Jun, [facility] [place] [facility] [address] [id number] [place] [address]- 5826 Jun, [facility] [place] [facility] [address] [id number] [place] 5148 Jun, [facility] [place] [facility] [address] [id number] [place] [address]- 1003 Jun, [facility] [place] [facility] [address] [id number] [place] [address]- 3212 Jun, [facility] [place] [facility] [address] [id number] [place] [address]- 9961 Jun, [facility] [place] [facility] [address] [id number] [place] [address]- 5844 May, [facility] [place] [facility] [address] [id number] [place] [address]- 2667 May, [facility] [place] [facility] [address] [id number] [place] [address]- 9798 May, [facility] [place] [facility] [address] [id number] [place] [address]- 3883 May, [facility] [place] [facility] [address] [id number] [place] [address]- 5248 May, [facility] [place] [facility] [address] [id number] [place] [address]- 1228 May, [facility] [place] [facility] [address] [id number] [place] [address]- 3757 May, [facility] [place] [facility] [address] [facility] [id number] [place] [address]- 8086 May, [facility] [place] [facility] [address] [id number] [place] [address]- 9309 May, [facility] [place] [facility] [address] [id number] [address]- 7016 Apr, [facility] [place] [facility] [address] [id number] [place] [address]- 3764 Apr, [facility] [place] [facility] [address] [id number] [place] [address]- 9019 Apr, [facility] [place] [facility] [address] [id number] [address]- 8199 Apr, [facility] [place] [facility] [address] [id number] [place] [address]- 8426 Apr, [facility] [place] [facility] [address] [id number] [place] [address]- 5250 Apr, [facility] [place] [facility] [address] [id number] [place] [address]- 5797 Apr, [facility] [place] [facility] [address] [id number] [place] [address]- 4065 Apr, [facility] [place] [facility] [address] [id number] [place] [address]- 4661 Apr, [facility] [place] [facility] [address] [id number] [place] [address]- 5729 Apr, [facility] [place] [facility] [address] [id number] [place] [address]- 2422 Apr, [facility] [place] [facility] [address] [id number] [place] [address]- 6593 Apr, [facility] [place] [facility] [address] [id number] [place] [address]- 6082 22 Mar, 2014 [facility] [place] [facility] [address] [id number] [place] [address]- 9112 22 Mar, 2014 [facility] [place] [facility] [address] [id number] [place] [address]- 0913 19 Mar, 2014 [facility] [place] [facility] [address] [id number] [place] [address]- 9993 19 Mar, 2013 [facility] [place] [facility] [address] [id number] [place] [address]- 5208 11 Mar, 2014 [facility] [place] [facility] [address] [id number] [place] [address]- 2546 11 Mar, 2013 [facility] [place] [facility] [address] [id number] [place] [address]- 1733 11 Mar, 2013 [facility] [place] [facility] [address] [id number] [place] [address]- 6091 Mar, [facility] [place] [facility] [address] [id number] [place] [address]- 0296 Mar, [facility] [place] [facility] [address] [id number] [place] [address]- 8585 Mar, [facility] [place] [facility] [address] [id number] [place] [address]- 1567 Feb, [facility] [place] [facility] [address] [id number] [place] [address]- 4382 Feb, [facility] [place] [facility] [address] [id number] [place] [address]- 1094 Feb, [facility] [place] [facility] [address] [id number] [place] [address]- 3498 Feb, [facility] [place] [facility] [address] [id number] [place] [address]- 6969 Feb, [facility] [place] [facility] [address] [id number] [place] [address]- 6188 Feb, [facility] [place] [facility] [address] [id number] [place] [address]- 1495 Feb, [facility] [place] [facility] [address] [id number] [place] [address]- 3517 Feb, [facility] [place] [facility] [address] [id number] [place] [address]- 9623 Feb, [facility] [place] [facility] [address] [id number] [place] [address]- 5841 Feb, [facility] [place] [facility] [address] [id number] [place] [address]- 8904 Feb, [facility] [place] [facility] [address] [id number] [place] [address]- 3327 Feb, [facility] [place] [facility] [address] [id number] [place] [address]- 3789 Feb, [facility] [place] [facility] [address] [id number] [place] [address]- 5869 Feb, [facility] [place] [facility] [address] [id number] [place] [address]- 0711 Feb, [facility] [place] [facility] [address] [id number] [place] [address]- 4543 Feb, [facility] [place] [facility] [address] [id number] [place] [address]- 1279 Jan, [facility] [place] [facility] [address] [id number] [place] [address]- 2876 Jan, [facility] [place] [facility] [address] [id number] [place] [address]- 9495 Jan, [facility] [place] [facility] [address] [id number] [place] [address]- 0503 Jan, [facility] [place] [facility] [address] [id number] [place] [address]- 9505 Jan, [facility] [place] [facility] [address] [id number] [place] [address]- 6632 Jan, [facility] [place] [facility] [address] [id number] [place] [address]- 5775 Dec, [facility] [place] [facility] [address] [id number] [place] [address]- 7689 Dec, [facility] [place] [facility] [address] [id number] [place] [address]- 4210 Dec, [facility] [place] [facility] [address] [id number] [place] [address]- 6578 Dec, [facility] [place] [facility] [address] [id number] [place] [address]- 3203 Dec, [facility] [place] [facility] [address] [id number] [place] [address]- 5229 Dec, [facility] [place] [facility] [address] [id number] [place] [address]- 1944 Dec, [facility] [place] [facility] [address] [id number] [place] [address]- 1044 Dec, [facility] [place] [facility] [address] [id number] [place] [address]- 4046 November, [facility] [place] [facility] [address] [id number] [place] [address]- 4402 November, [facility] [place] [facility] [address] [id number] [place] [address]- 9016 November, [facility] [place] [facility] [address] [id number] [place] [address]- 6476 November, [facility] [place] [facility] [address] [id number] [place] [address]- 5030 November, [facility] [place] [facility] [address] [id number] [place] [address]- 4683 November, [facility] [place] [facility] [address] [id number] [place] [address]- 6036 Oct, [facility] [place] [facility] [address] [id number] [place] [address]- 6960 Oct, [facility] [place] [facility] [address] [id number] [place] [address]- 9345 Oct, [facility] [place] [facility] [address] [id number] [place] [address]- 5034 Oct, [facility] [place] [facility] [address] [id number] [place] [address]- 4500 Sep, [facility] [place] [facility] [address] [id number] [place] [address]- 9422 Sep, [facility] [place] [facility] [address] [id number] [place] [address]- 6848 Sep, [facility] [place] [facility] [address] [id number] [place] [address]- 9875 Sep, [facility] [place] [facility] [address] [id number] [place] [address]- 5692 Sep, [facility] [place] [facility] [address] [id number] [place] [address]- 7289 Sep, [facility] [place] [facility] [address] [id number] [place] [address]- 0206 Aug, [facility] [place] [facility] [address] [id number] [place] [address]- 6916 Aug, [facility] [place] [facility] [address] [id number] [place] [address]- 3753 Aug, [facility] [place] [facility] [address] [id number] [place] [address]- 3236 Aug, [facility] [place] [facility] [address] [id number] [place] [address]- 3536 Aug, [facility] [place] [facility] [address] [id number] [place] [address]- 2479 Aug, [facility] [place] [facility] [address] [id number] [place] [address]- 3063 Jul, [facility] [place] [facility] [address] [id number] [place] [address]- 5311 Jul, [facility] [place] [facility] [address] [id number] [place] [address]- 8042 Jul, [facility] [place] [facility] [address] [id number] [place] [address]- 9590 Jul, [facility] [place] [facility] [address] [id number] [place] [address]- 5811 Jul, [facility] [place] [facility] [address] [id number] [place] [address]- 9158 Jul, [facility] [place] [facility] [address] [id number] [place] [address]- 5787 Jul, [facility] [place] [facility] [address] [id number] [place] [address]- 6648 Jul, [facility] [place] [facility] [address] [id number] [place] [address]- 7377 Jul, [facility] [address] [id number] [place] [address]- 1376 Jul, [facility] [address] [id number] [place] [address]- 1486 Jul, [facility] [address] [id number] [place] [address] Jul, [facility] [address] [id number] [place] [address] Jul, [facility] [address] [id number] [place] [address] Jul, [facility] [address] [id number] [place] [address] Jul, [facility] [address] [id number] [place] [address] Jun, [facility] [address] [id number] [place] [address] Jun, [facility] [address] [id number] [place] [address] Jun, [facility] [address] [id number] [place] [address] Jun, [facility] [address] [id number] [place] [address] May, [facility] [address] [id number] [place] [address] May, [facility] [address] [id number] [place] [id number] May, [facility] [address] [id number] [place] [address] May, [facility] [address] [id number] [place] [address] May, [facility] [address] [facility] [id number] [address] May, [facility] [address] [id number] [address] May, [facility] [id number] [address] May, [facility] [id number], [place] [address] May, [facility] [id number] [id number] May, [facility] [id number], [place] [address] May, [facility] [id number] [id number] May, [facility] [address] [id number], [place] [address] May, [facility] [address] [id number] [id number] May, [facility] [address] [id number], [place] [address] May, IMMUNIZATIONS No Known Immunizations SOCIAL HISTORY Never Assessed REASON FOR VISIT EMR-[facility] [place] PLAN OF CARE VITAL SIGNS MEDICATIONS Unknown [...] Diarrhea, leukocytosis--[facility] 01/08/16 Hospitalization History pseudomemranous colitis, sepsis--[facility] 04/21/2016 Hospitalization History C Diff--[facility] 05/10/2016 Hospitalization History sepsis, pneumonia, diarrhea--[facility] 06/11/16 Hospitalization History recurrent cdiff, pneumonia-[facility] 07/22/16 Hospitalization History sepsis,pneumonia- [facility]
--- OUTSIDE RECORDS SUMMARY | 2018-10-30 19:37 | XMS REPORT ---
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 893955029 Problem Peripheral vascular disease, unspecified I73.9 Active 562720092 Problem Dysphagia, unspecified dysphagia R13.10 Active 62882711 Problem Depression, unspecified depression type F32.9 Active 69340566 Problem Anxiety F41.9 Active 63713014 Problem COPD (chronic obstructive pulmonary disease) J44.9 Active 03558611 Problem Hypertension I10 Active 49897797 Problem Atrial fibrillation I48.91 Active 86623657 Problem Rheumatoid arthritis M06.9 Active 92814371 Problem Tobacco abuse, 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 896409840 Problem Dysthymia F34.1 Active 82229135 Problem Chronic pain syndrome G89.4 Active 078980197 Problem Edema R60.9 Active 198381765 Problem Anemia, unspecified type D64.9 Active 947203212 Problem Iron deficiency anemia, unspecified iron deficiency anemia type D50.9 Active 61533847 Problem Other chronic pain G89.29 Active 32928262 Problem History of oral cancer Z85.819 Active 746000122 Problem 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 792231813 Problem Neuropathy G62.9 Active 118324436 Problem History of cerebrovascular accident with current residual effects I69.90 Active 546836842 Problem Osteoarthritis of foot M19.079 Active 707027678 Problem Chronic obstructive pulmon disease w acute lower resp infct J44.0 Active 266962760 Problem Primary insomnia F51.01 Active 5928977 Problem Insomnia, unspecified G47.00 Active 614338661 Problem Seasonal allergic rhinitis due to pollen J30.1 Active 20599578 ALLERGIES No Information ENCOUNTERS Encounter Location Date Diagnosis [facility] [id number] [place] [address] 38160- 9641 Sep, Chronic pain syndrome G89.4 [facility] [id number] [place] [address] 03022- 8896 Sep, Leg pain, left M79.605 ; Right leg pain M79.604 and Reactive cervical nodes R59.0 [facility] [facility] [address] 49704- 6802 14 Sep, 2018 [place] [address] 52962- 2380 Sep, Neuropathy G62.9 [facility] [address] [id number] Sep, [place] [address] 29057- 8232 Sep, Lymphadenopathy of left cervical region R59.0 [facility] [id number] [place] [address] 04108- 7608 Sep, Lymphadenopathy of left cervical region R59.0 and Neuropathy G62.9 [facility] [id number] [place] [address] 79588- 1356 Aug, Chronic pain syndrome G89.4 [facility] [id number] [place] [address] 65712- 2063 Aug, [facility] [id number] [place] [address] 98805- 7662 Aug, Peripheral vascular disease, unspecified I73.9 ; Other chronic pain G89.29 ; Chronic obstructive pulmon disease w acute lower resp infct J44.0 and Primary insomnia F51.01 [facility] [id number] [place] [address] 13642- 2217 Aug, Chronic pain syndrome G89.4 [facility] [id number] [place] [address] 37786- 8257 Jul, Chronic pain syndrome G89.4 [facility] [address] 97143- 6819 Jun, Chronic pain syndrome G89.4 [facility] [id number] [place] [address] 96157- 5493 May, Chronic pain syndrome G89.4 [facility] [address] 43595 -9039 Apr, Cough R05 and Viral illness B34.9 [facility] [address] 19011- 1142 Apr, Encounter for immunization Z23 [facility] [address] 21938- 0748 Apr, Chronic pain syndrome G89.4 [facility] [address] 40914 -4589 Apr, Left acute otitis media H66.92 [facility] [id number] [place] [address] 72762- 5069 Mar, Rheumatoid arthritis M06.9 ; Other chronic pain G89.29 ; History of oral cancer Z85.819 and History of tachycardia Z87.898 [facility] [id number] [place] [address] 18673- 9236 Mar, Chronic pain syndrome G89.4 [facility] [id number] [place] [address] 98874- 5595 Feb, Chronic pain syndrome G89.4 [facility] [id number] [place] [address] 98429- 8108 Feb, Chronic pain syndrome G89.4 [facility] [id number] [place] [address] 31283- 2236 Jan, Chronic pain syndrome G89.4 [facility] [id number] [address] 6151 Jan, [facility] [address] [address]- 7330 Dec, Chronic pain syndrome G89.4 [facility] [address] [address]- 6844 November, Chronic pain syndrome G89.4 [facility] [id number] [address]- 7994 November, [facility] [address] [address]- 3691 Oct, Chronic pain syndrome G89.4 [facility] [address] [address]- 4728 Oct, [facility] [id number] [place] [address] 99737- 2145 Oct, Chronic pain syndrome G89.4 [facility] [address] [address]- 5006 Oct, [facility] [address] [address]- 8542 Oct, [facility] [address] [address]- 5592 Sep, Left upper quadrant pain R10.12 ; Chronic pain syndrome G89.4 ; Left lower quadrant pain R10.32 ; Other chronic pain G89.29 ; Sacrococcygeal disorders, not elsewhere classified M53.3 and Seasonal allergic rhinitis due to pollen J30.1 [facility] [address] [address]- 3350 Sep, Chronic pain syndrome G89.4 [facility] [address] [address]- 7805 Sep, [facility] [address] [address]- 5474 Aug, Chronic pain syndrome G89.4 [facility] [address] [address]- 1138 Aug, [facility] [id number] [place] [address] 54480- 4989 Aug, Insomnia, unspecified G47.00 [facility] [id number] [place] [address] 91225- 5651 Jul, [facility] [id number] [place] [address] 03677- 0638 Jul, [facility] [id number] [place] [address] 82869- 3077 Jul, Chronic pain syndrome G89.4 [facility] [id number] [place] [address] 45805- 1159 Jun, Chronic pain syndrome G89.4 [facility] [id number] [place] [address] 02484- 4294 Jun, Chronic pain syndrome G89.4 [facility] [id number] [place] [address] 96785- 9880 May, [facility] [facility] [id number] [place] [address] 87766- 7685 May, Shortness of breath R06.02 ; Peripheral vascular disease, unspecified I73.9 ; Pain in right knee M25.561 ; Other chronic pain G89.29 ; Chest wall pain R07.89 ; Chronic pain syndrome G89.4 ; Primary insomnia F51.01 and Ear pain, left H92.02 [facility] [id number] [place] [address] 68350- 7357 May, Anxiety F41.9 [facility] [id number] [place] [address] 51741- 4687 09 Apr, 2017 Pneumonia due to infectious organism, unspecified laterality , unspecified part of lung J18.9 ; Hypoxia R09.02 ; Bradycardia R00.1 ; History of Clostridium difficile Z87.19 and Primary insomnia F51.01 [facility] [id number] [place] [address] 39062- 6704 Apr, Anxiety F41.9 [facility] [id number] [place] [address] 52883- 3285 Apr, [facility] [id number] [place] [address] 33956- 9550 Mar, Anxiety F41.9 [facility] [id number] [place] [address] 83743- 7479 Feb, [place] [address] 09829- 4214 Feb, [place] [id number] [place] [address] 81166- 8909 Feb, Abnormal finding on urinalysis R82.90 [place] [facility] [id number] [place] [address] 32619- 1477 Feb, [facility] [facility] [id number] [place] [address] 53623- 0687 Feb, Shortness of breath R06.02 ; Tachycardia R00.0 ; Cough R05 ; Ill feeling R68.89 and Abnormal finding on urinalysis R82.90 [facility] [facility] [id number] [place] [address] 58640- 4276 Feb, Anxiety F41.9 [facility] [id number] [place] [address] 07460 -5326 Feb, Sore throat J02.9 and Acute diffuse otitis externa of left ear H60.312 [facility] [id number] [place] [address] 81444- 7994 Jan, [facility] [id number] [place] [address] 40425- 9338 Jan, [facility] [address] [id number] Jan, [facility] [address] [address]- 2896 Jan, Depression, unspecified depression type F32.9 ; Chronic bronchitis, unspecified chronic bronchitis type J42 ; Chronic pain syndrome G89.4 and Anxiety F41.9 [facility] [address] [address]- 2146 Jan, [facility] [id number] [place] [address] 99538- 9252 Jan, [facility] [id number] [place] [address] 54748- 6175 Jan, [facility] [id number] [place] [address] [id number] Jan, Chronic pain syndrome G89.4 [facility] [address] [id number] Dec, History of right knee surgery Z98.890 [facility] [id number] [place] [address] 09154- 2443 Dec, [facility] [id number] [place] [address] 05283- 7227 Dec, Chronic pain syndrome G89.4 [facility] [id number] [place] [address] 85610- 6664 November, Anxiety F41.9 [facility] [id number] [place] [address] 75095 -8990 November, Acute cystitis without hematuria N30.00 [facility] [id number] [place] [address] 06335 -3585 November, Fever, unspecified fever cause R50.9 and Acute cystitis without hematuria N30.00 [facility] [address] [address]- 5334 November, Chronic pain syndrome G89.4 [facility] [id number] [place] [address] 81927- 6411 Oct, Anxiety F41.9 [facility] [id number] [place] [address] 45761- 1246 Oct, Chronic pain syndrome G89.4 [facility] [id number] [place] [address] 32368- 1979 Oct, Chronic pain syndrome G89.4 [facility] [facility] [id number] [place] [address] 72706- 3857 Oct, [facility] [facility] [id number] [place] [address] 10360- 8630 Oct, Chronic pain syndrome G89.4 ; Pain in right knee M25.561 ; History of Clostridium difficile Z87.19 ; Iron deficiency anemia, unspecified iron deficiency anemia type D50.9 ; Peripheral vascular disease, unspecified I73.9 and Atrial fibrillation I48.91 [place] [id number] [place] [address] 33529- 3968 Oct, [facility] [id number] [place] [address] 37003- 8266 Oct, Chronic pain syndrome G89.4 [place] [id number] [place] [address] 52770- 2005 Sep, [place] [id number] [place] [address] 27185- 5072 Sep, Depression, unspecified depression type F32.9 ; Chronic bronchitis, unspecified chronic bronchitis type J42 ; Chronic pain syndrome G89.4 and Anxiety F41.9 [facility] [address] [id number] Sep, History of Clostridium difficile infection Z86.19 and History of stroke Z86.73 [place] [id number] [place] [address] [id number] Sep, Anxiety F41.9 [facility] [facility] [id number] [place] [address] 93506- 9161 Sep, Chronic pain syndrome G89.4 [facility] [address] [address]- 1032 Sep, [facility] [id number] [place] [address] [id number] Sep, [facility] [address], [place] [address]- 5729 Aug, Anxiety F41.9 [facility] [id number] [place] [address] 59142 2546 Aug, Anxiety F41.9 [facility] [id number] [place] [address] 21144- 9846 Aug, [facility] [id number] [place] [address] 51851- 6677 14 Aug, 2016 Acute knee pain, unspecified laterality M25.569 [facility] [id number] [place] [address] 49663- 5878 Aug, [facility] [id number] [place] [address] 41414- 3337 Aug, Chronic pain syndrome G89.4 [facility] [id number] [place] [address] 13282- 6791 Aug, [facility] [address] [address]- 7374 Aug, [facility] [id number] [place] [address] 16887- 8374 Jul, [facility] [address] [address]- 9611 Jul, Anxiety F41.9 [facility] [address] [address]- 6035 Jul, Clostridium difficile diarrhea A04.7 [facility] [address] [id number] Jul, Clostridium difficile diarrhea A04.7 ; Chronic pain syndrome G89.4 ; Chronic obstructive pulmon disease w acute lower resp infct J44.0 and Pain in right knee M25.561 [facility] [id number] [place] [address] [id number] Jul, [facility] [address] [place] [address] -2380 Jul, Anxiety F41.9 and Chronic pain syndrome G89.4 [facility] [id number] [place] [address] 13116- 0518 Jun, Anxiety F41.9 [facility] [id number] [place] [address] 77899- 8044 Jun, Rheumatoid arthritis 714.0 [facility] [id number] [place] [address] 55169- 8136 Jun, Chronic pain syndrome G89.4 [facility] [id number] [place] [address] 70371- 8586 Jun, [facility] [id number] [place] [address] 43707- 5084 Jun, [facility] [id number] [place] [address] 91615- 4464 Jun, History of pneumonia Z87.01 and History of Clostridium difficile Z87.19 [facility] [id number] [place] [address] 26442- 8371 Jun, [facility] [id number] [place] [address] 10730- 4666 May, [facility] [address], [place] [address]- 8046 May, Anxiety F41.9 [facility] [id number] [place] [address] 32859- 6088 May, Chronic pain syndrome G89.4 [facility] [id number] [place] [address] 39107- 3146 May, Chronic bronchitis, unspecified chronic bronchitis type J42 [facility] [address] [address]- 6648 May, [facility] [id number] [place] [address] 78015- 3087 May, C. difficile diarrhea A04.7 ; Peripheral edema R60.9 ; COPD (chronic obstructive pulmonary disease) J44.9 ; Rheumatoid arthritis, involving unspecified site, unspecified rheumatoid factor presence M06.9 ; Pain in right knee M25.561 ; Pain in left knee M25.562 and Other chronic pain G89.29 [facility] [id number] [place] [address] 07658- 5209 May, [facility] [id number] [place] [address] 75496- 6409 May, [facility] [id number] [place] [address] 32475- 9160 May, Anxiety F41.9 [facility] [id number] [place] [address] 22040- 1643 Apr, [facility] [id number] [place] [address] 37875- 7041 Apr, Chronic pain syndrome G89.4 [facility] [id number] [place] [address] 37929- 3143 Apr, Leg pain, left M79.605 [facility] [id number] [place] [address] 77489- 7819 Apr, [facility] [address] [address]- 0966 Apr, [facility] [id number] [place] [address] 13785- 4934 Apr, [facility] [id number] [place] [address] 80522- 9493 Mar, Chronic pain syndrome G89.4 [facility] [address] [address]- 6608 22 Mar, 2016 Acute frontal sinusitis, recurrence not specified J01.10 [facility] [id number] [place] [address] 21838- 2754 20 Mar, 2016 Iron deficiency anemia, unspecified iron deficiency anemia type D50.9 ; Rheumatoid arthritis with positive rheumatoid factor, involving unspecified site M05.9 and Depression, unspecified depression type F32.9 [facility] [id number] [place] [address] 25098- 9150 13 Mar, 2016 Iron deficiency anemia, unspecified iron deficiency anemia type D50.9 ; Depression, unspecified depression type F32.9 and Rheumatoid arthritis with positive rheumatoid factor, involving unspecified site M05.9 [facility] [id number] [place] [address] 39245- 0005 06 Mar, 2016 [facility] [id number] [place] [address] 41790- 1342 Mar, [facility] [id number] [place] [address] 43831- 0447 Feb, Chronic pain syndrome G89.4 [facility] [id number] [place] [address] 68588- 0687 30 Feb, 2016 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 ; Status post CVA Z86.73 ; Hemiplegia G81.90 and Anemia, unspecified type D64.9 [facility] [id number] [place] [address] 61665- 0777 Feb, [facility] [id number] [place] [address] 57138- 0494 Feb, Anemia, unspecified type D64.9 [facility] [id number] [place] [address] 65694- 4655 Feb, [facility] [id number] [place] [address] 21526- 2929 Feb, Iron deficiency anemia, unspecified iron deficiency anemia type D50.9 [facility] [address] [address]- 2324 Feb, [facility] [id number] [place] [address] 32139- 0255 Feb, Chronic bronchitis, unspecified chronic bronchitis type J42 [facility] [id number] [place] [address] 27864- 6873 Feb, Iron deficiency anemia, unspecified iron deficiency anemia type D50.9 [facility] [id number] [place] [address] 84444- 8522 Feb, Chronic pain syndrome G89.4 [facility] [id number] [place] [address] 40206- 6738 Feb, Anemia, unspecified type D64.9 and Hypoxia R09.02 [facility] [id number] [place] [address] [id number]- [phone] Feb, Anemia, unspecified type D64.9 [facility] [id number] [place] [address] [id number]- [id number] Jan, [facility] [id number] [place] [address] [id number]- [phone] Jan, Anemia, unspecified type D64.9 [facility] [id number] [address] Jan, [facility] [id number] [place] [address] [id number] Jan, Anemia, unspecified type D64.9 [facility] [id number] [place] [address] [id number]- 4691 Jan, Anemia, unspecified type D64.9 [facility] [id number] [address] Jan, [facility] [id number] [place] [address] 93163- 9827 Jan, Anemia, unspecified type D64.9 [facility] [id number] [address] Jan, [facility] [id number] [place] [place] [address] 82721- 4236 Jan, [facility] [id number] [place] [address] 46748- 6769 Jan, Chronic pain syndrome G89.4 [facility] [id number] [place] [address] 67095- 0124 Jan, Anemia, unspecified type D64.9 [facility] [id number] [place] [address] 29075- 5383 Jan, Dysthymia F34.1 ; Cervicalgia M54.2 ; Fatigue, unspecified type R53.83 and Depression, unspecified depression type F32.9 [address] [id number] [place] [address] 69359- 8832 Dec, [facility] [id number] [place] [address] 11030- 9531 Dec, Anxiety F41.9 [place] [id number] [place] [address] 36698- 5841 Dec, Chronic pain syndrome G89.4 [facility] [id number] [place] [address] 80253- 4121 November, [facility] [id number] [place] [address] 19587- 3325 November, Edema R60.9 and Dizziness R42 [facility] [id number] [place] [address] 03577- 5124 November, [facility] [id number] [place] [address] 84052- 4811 November, [facility] [id number] [place] [address] 68046- 7801 November, COPD (chronic obstructive pulmonary disease) J44.9 ; Increased tracheal secretions J39.8 and Edema R60.9 [facility] [id number] [place] [address] 19674 -7145 Oct, [facility] [id number] [place] [address] 27413 -6084 Oct, Shortness of breath R06.02 and Edema R60.9 [facility] [id number] [place] [address] 72352- 6979 Oct, Chronic bronchitis, unspecified chronic bronchitis type J42 ; Peripheral vascular disease, unspecified I73.9 ; Rheumatoid arthritis M06.9 and Atrial fibrillation I48.91 [place] [id number] [place] [address] 77268- 8271 Oct, [place] [id number] [place] [address] 64108- 7736 Oct, [facility] [id number] [place] [address] 32464- 2328 Oct, [facility] [id number] [place] [address] 57970- 3144 Oct, [facility] [id number] [place] [address] 26699 -9072 Oct, COPD exacerbation J44.1 [facility] [id number] [place] [address] 87989- 9684 Sep, [facility] [id number] [place] [address] 38139- 9873 Sep, [place] [id number] [place] [address] 38638- 5599 Sep, [facility] [id number] [place] [address] 01399- 5843 Aug, [facility] [id number] [place] [address] 05829- 8887 Aug, 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 and PVD (peripheral vascular disease ) I73.9 [facility] [id number] [place] [address] 42575- 5234 Aug, Bronchitis J40 ; COPD (chronic obstructive pulmonary disease ) J44.9 and Dysthymia F34.1 [facility] [id number] [place] [address] 49263- 2326 Aug, [facility] [address] 51780- 3458 Jul, [facility] [id number] [place] [address] 58626- 0004 Jul, [facility] [id number] [place] [address] 56173- 2536 Jul, [facility] [id number] [place] [address] 58388- 1587 Jun, [facility] [id number] [place] [address] 61176- 8088 Jun, [facility] [id number] [place] [address] 30548- 9271 Jun, Peripheral vascular disease I73.9 [facility] [id number] [place] [address] 52788- 3937 Jun, [facility] [id number] [place] [address] 50503- 0207 Jun, [facility] [id number] [place] [address] 81907- 0090 Jun, Leg pain, left M79.605 ; Dysphagia, unspecified dysphagia R13.10 ; Insomnia, unspecified type G47.00 ; PVD (peripheral vascular disease) I73.9 and 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 [facility] [id number] [place] [address] 70000- 2866 May, [facility] [id number] [place] [address]- 7444 May, [facility] [address] [facility] [id number] [place] [address]- 0713 May, [facility] [address] [facility] [id number] [place] [address]- 9436 May, [facility] [id number] [place] [address], [place] [address]- 5828 May, [facility] [address] [facility] [id number] [place] [address]- 0840 Apr, [facility] [id number] [place] [address], [place] [address]- 8801 Apr, [facility] [id number] [place] [address]- 6453 Mar, [facility] [id number] [place] [address], [place] [address]- 8088 Mar, [facility] [address], [place] [address]- 8040 Feb, [facility] [id number] [address]- 8489 Feb, Nicotine abuse 305.1 ; Arthralgia 719.40 and 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 [facility] [address] [address]- 6747 Feb, [facility] [address] [place] [address]- 7969 Jan, [facility] [address] [address]- 2114 Jan, [facility] [address] [address]- 0114 Jan, [facility] [address] [address]- 5683 Jan, [facility] [address] [address]- 3726 Jan, 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 ; Rheumatoid arthritis 714.0 ; Hypertension 401.9 ; GERD (gastroesophageal reflux disease) 530.81 ; Nicotine addiction 305.1 and Leukocytosis 288.60 [facility] [address] [address]- 6525 Jan, 2014 [facility] [id number] [address]- 6383 Jan, [facility] [address] [address]- 2501 Jan, [facility] [address] [address]- 8463 Jan, [facility] [address], [place] [address]- 2976 Jan, [facility] [address] [address]- 1448 Dec, [facility] [address], [place] [address]- 5764 Dec, [facility] [address], [place] [address]- 5588 Dec, [facility] [address], [place] [address]- 9530 Dec, [facility] [address], [place] [address]- 7002 November, [facility] [id number] [address]- 0726 November, [facility] [address], [place] [address]- 3616 November, Shortness of breath 786.05 [facility] [id number] [address]- 1081 November, Rheumatoid arthritis 714.0 [facility] [id number] [address]- 6415 November, 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 [facility] [id number] [place] [address] 34623- 4768 November, Neuropathy 355.9 ; Insomnia 780.52 ; Dysthymia 300.4 ; Shortness of breath 786.05 ; Rheumatoid arthritis 714.0 and Nausea 787.02 [facility] [id number] [place] [address] 06861- 4507 November, [facility] [id number] [place] [address] 86008- 2114 November, [facility] [id number] [place] [address] 32702- 3849 Oct, [facility] [id number] [place] [address] 42785- 5037 Oct, [facility] [id number] [place] [address] 96199- 5479 Oct, [facility] [id number] [place] [address] 87518- 1262 Oct, [facility] [id number] [place] [address] 95829- 3319 Sep, [facility] [address], [place] [address]- 2474 Sep, [facility] [id number] [place] [address] 24349- 4617 Sep, [facility] [address] 5774 Sep, [facility] [id number] [place] [address] 97352- 5855 Sep, [facility] [address] 3896 Sep, [facility] [id number] [place] [address]- 8787 Sep, [facility] [place] [facility] [address] [id number] [place] [address]- 2176 Sep, [facility] [place] [facility] [address] [id number] [place] [address]- 1716 Aug, [facility] [place] [facility] [address] [id number] [place] [address]- 4576 Aug, 2014 [facility] [place] [facility] [address] [id number] [place] [address]- 5710 Aug, [facility] [place] [facility] [address] [id number] [place] [address]- 8446 Aug, 2014 [facility] [place] [facility] [address] [facility] [id number] [place] [address]- 0614 Aug, [facility] [place] [facility] [address] [facility] [id number] [place] [address]- 6094 Aug, [facility] [place] [facility] [address] [id number] [place] [address]- 2469 Jul, [facility] [place] [facility] [address] [id number] [place] [address]- 2693 Jul, [facility] [place] [facility] [address] [facility] [id number] [place] [address]- 4603 Jul, [facility] [place] [facility] [address] [id number] [place] [address]- 8127 Jul, [facility] [place] [facility] [address] [id number] [place] [address] 2540 Jul, [facility] [place] [facility] [address] [id number] [place] [address]- 8836 Jul, [facility] [place] [facility] [address] [facility] [id number] [place] [address]- 9826 Jul, [facility] [place] [facility] [address] [facility] [id number] [place] [address]- 9309 Jul, [facility] [place] [facility] [address] [id number] [place] [address]- 1908 Jul, [facility] [place] [facility] [address] [id number] [place] [address]- 1493 Jul, [facility] [place] [facility] [address] [id number] [place] [address]- 9744 Jun, [facility] [place] [facility] [address] [id number] [place] [address]- 6741 Jun, [facility] [place] [facility] [address] [id number] [place] [address]- 1555 Jun, [facility] [place] [facility] [address] [id number] [place] [address]- 5052 Jun, [facility] [place] [facility] [address] [id number] [place] [address]- 2014 Jun, [facility] [place] [facility] [address] [id number] [place] [address]- 1310 Jun, [facility] [place] [facility] [address] [id number] [place] [address]- 1874 Jun, [facility] [place] [facility] [address] [id number] [place] [address]- 5240 Jun, [facility] [place] [facility] [address] [id number] [place] [address]- 7722 Jun, [facility] [place] [facility] [address] [id number] [place] [address]- 3993 Jun, [facility] [place] [facility] [address] [id number] [place] [address]- 1785 Jun, [facility] [place] [facility] [address] [id number] [place] [address]- 2289 Jun, [facility] [place] [facility] [address] [id number] [place] 1944 Jun, [facility] [place] [facility] [address] [id number] [place] [address]- 2804 Jun, [facility] [place] [facility] [address] [id number] [place] [address]- 6621 Jun, [facility] [place] [facility] [address] [id number] [place] [address]- 9243 Jun, [facility] [place] [facility] [address] [id number] [place] [address]- 7140 May, [facility] [place] [facility] [address] [id number] [place] [address]- 2601 May, [facility] [place] [facility] [address] [id number] [place] [address]- 0985 May, [facility] [place] [facility] [address] [id number] [place] [address]- 2173 May, [facility] [place] [facility] [address] [id number] [place] [address]- 6898 May, [facility] [place] [facility] [address] [id number] [place] [address]- 0855 May, [facility] [place] [facility] [address] [id number] [place] [address]- 1282 May, [facility] [place] [facility] [address] [facility] [id number] [place] [address]- 7962 May, [facility] [place] [facility] [address] [id number] [place] [address]- 6479 May, [facility] [place] [facility] [address] [id number], [place] [address]- 6928 Apr, [facility] [place] [facility] [address] [id number] [place] [address]- 7295 Apr, [facility] [place] [facility] [address] [id number] [place] [address]- 4068 Apr, [facility] [place] [facility] [address] [id number], [place] [address]- 8339 Apr, [facility] [place] [facility] [address] [id number] [place] [address]- 6908 Apr, [facility] [place] [facility] [address] [id number] [place] [address]- 1616 Apr, [facility] [place] [facility] [address] [id number] [place] [address]- 5053 Apr, [facility] [place] [facility] [address] [id number] [place] [address]- 0281 Apr, [facility] [place] [facility] [address] [id number] [place] [address]- 7368 Apr, [facility] [place] [facility] [address] [id number] [place] [address]- 1940 Apr, [facility] [place] [facility] [address] [id number] [place] [address]- 2976 Apr, [facility] [place] [facility] [address] [id number] [place] [address]- 9363 Apr, [facility] [place] [facility] [address] [id number] [place] [address]- 4064 22 Mar, 2014 [facility] [place] [facility] [address] [id number] [place] [address]- 4676 22 Mar, 2014 [facility] [place] [facility] [address] [id number] [place] [address]- 0740 19 Mar, 2014 [facility] [place] [facility] [address] [id number] [place] [address]- 0920 19 Mar, 2013 [facility] [place] [facility] [address] [id number] [place] [address]- 5445 11 Mar, 2014 [facility] [place] [facility] [address] [id number] [place] [address]- 2546 11 Mar, 2013 [facility] [place] [facility] [address] [id number] [place] [address]- 1051 11 Mar, 2013 [facility] [place] [facility] [address] [id number] [place] [address]- 2331 Mar, [facility] [place] [facility] [address] [id number] [place] [address]- 2817 Mar, [facility] [place] [facility] [address] [id number] [place] [address]- 5669 Mar, [facility] [place] [facility] [address] [id number] [place] [address]- 5774 Feb, [facility] [place] [facility] [address] [id number] [place] [address]- 6009 Feb, [facility] [place] [facility] [address] [id number] [place] [address]- 7195 Feb, [facility] [place] [facility] [address] [id number] [place] [address]- 3979 Feb, [facility] [place] [facility] [address] [id number] [place] [address]- 7207 Feb, [facility] [place] [facility] [address] [id number] [place] [address]- 2478 Feb, [facility] [place] [facility] [address] [id number] [place] [address]- 1932 Feb, [facility] [place] [facility] [address] [id number] [place] [address]- 8838 Feb, [facility] [place] [facility] [address] [id number] [place] [address]- 7417 Feb, [facility] [place] [facility] [address] [id number] [place] [address]- 1844 Feb, [facility] [place] [facility] [address] [id number] [place] [address]- 9937 Feb, [facility] [place] [facility] [address] [id number] [place] [address]- 3492 Feb, [facility] [place] [facility] [address] [id number] [place] [address]- 5874 Feb, [facility] [place] [facility] [address] [id number] [place] [address]- 4024 Feb, [facility] [place] [facility] [address] [id number] [place] [address]- 4644 Feb, [facility] [place] [facility] [address] [id number] [place] [address]- 3990 Feb, [facility] [place] [facility] [address] [id number] [place] [address]- 1144 Jan, [facility] [place] [facility] [address] [id number] [place] [address]- 3109 Jan, [facility] [place] [facility] [address] [id number] [place] [address]- 6443 Jan, [facility] [place] [facility] [address] [id number] [place] [address]- 7156 Jan, [facility] [place] [facility] [address] [id number] [place] [address]- 9141 Jan, [facility] [place] [facility] [address] [id number] [place] [address]- 0203 Jan, [facility] [place] [facility] [address] [id number] [place] [address]- 3745 Dec, [facility] [place] [facility] [address] [id number] [place] [address]- 5115 Dec, [facility] [place] [facility] [address] [id number] [place] [address]- 2000 Dec, [facility] [place] [facility] [address] [id number] [place] [address]- 9944 Dec, [facility] [place] [facility] [address] [id number] [place] [address]- 9074 Dec, [facility] [place] [facility] [address] [id number] [place] [address]- 8491 Dec, [facility] [place] [facility] [address] [id number] [place] [address] Dec, [facility] [place] [facility] [address] [id number] [place] [address] Dec, [facility] [place] [facility] [address] [id number] [place] [address] November, [facility] [place] [facility] [address] [id number] [place] [address] November, [facility] [place] [facility] [address] [id number] [place] [address] November, [facility] [place] [facility] [address] [id number] [place] [address] November, [facility] [place] [facility] [address] [id number] [place] [address] November, [facility] [place] [facility] [address] [id number] [place] [address] November, [facility] [place] [facility] [address] [id number] [place] [address] Oct, [facility] [place] [facility] [address] [id number] [place] [address] Oct, [facility] [place] [facility] [address] [id number] [place] [address] Oct, [facility] [place] [facility] [address] [id number] [place] [address] Oct, [facility] [place] [facility] [address] [id number] [place] [address] Sep, [facility] [place] [facility] [address] [id number] [place] [address] Sep, [facility] [place] [facility] [address] [id number] [place] [address] Sep, [facility] [place] [facility] [address] [id number] [place] [address] Sep, [facility] [place] [facility] [address] [id number] [place] [address] Sep, [facility] [place] [facility] [address] [id number] [place] [address] Sep, [facility] [place] [facility] [address] [id number] [place] [address] Aug, [facility] [place] [facility] [address] [id number] [place] [address] Aug, [facility] [place] [facility] [address] [id number] [place] [address] Aug, [facility] [place] [facility] [address] [id number] [place] [address] Aug, [facility] [place] [facility] [address] [id number] [place] [address] Aug, [facility] [place] [facility] [address] [id number] [place] [address] Aug, [facility] [place] [facility] [address] [id number] [place] [address] Jul, [facility] [place] [facility] [address] [id number] [place] [address] Jul, [facility] [place] [facility] [address] [id number] [place] [address] Jul, [facility] [place] [facility] [address] [id number] [place] [address] Jul, [facility] [place] [facility] [address] [id number] [place] [address] Jul, [facility] [place] [facility] [address] [id number] [place] [address] Jul, [facility] [place] [facility] [address] [id number] [place] [address] Jul, [facility] [place] [facility] [address] [id number] [place] [address] 35[address] Jul, [facility] [place] [facility] [address] [id number] [place] [address] Jul, [facility] [address] [id number] [place] [address] Jul, [facility] [address] [id number] [place] [address] Jul, [facility] [address] [id number] [place] [address] Jul, [facility] [address] [id number] [place] [address] Jul, [facility] [address] [id number] [place] [address] Jul, [facility] [address] [id number] [place] [address]- [address] Jul, [facility] [address] [id number] [place] [address] Jun, [facility] [address] [id number] [place] [address]- [address] Jun, [facility] [address] [id number] [place] [address] Jun, [facility] [address] [id number] [place] [address]- [address] Jun, [facility] [address] [id number] [place] [address] May, [facility] [address] [id number] [place] [address] May, [facility] [address] [id number] [place] [id number] May, [facility] [address] [id number] [place] [address] May, [facility] [address] [id number] [place] [address] May, [facility] [address] [facility] [id number], [place] [address] May, [facility] [address] [id number], [place] [address] May, [facility] [id number], [place] [address] May, [facility] [id number], [place] [address] May, [facility] [id number] [id number] May, [facility] [id number], [place] [address] May, [facility] [address] [id number] [id number] May, [facility] [address] [id number] [address] May, [facility] [id number] [id number] May, [facility] [address] [id number] [address] May, IMMUNIZATIONS No Known Immunizations SOCIAL HISTORY Never Assessed REASON FOR VISIT EMR-[facility] [place] C[place] VITAL SIGNS MEDICATIONS Unknown [...] Diarrhea, leukocytosis--[facility] 01/08/16 Hospitalization History pseudomemranous colitis, sepsis--[facility] 04/21/2016 Hospitalization History C Diff--[facility] 05/10/2016 Hospitalization History sepsis, pneumonia, diarrhea--[facility] 06/11/16 Hospitalization History recurrent cdiff, pneumonia-[facility] 07/22/16 Hospitalization History sepsis,pneumonia- [facility]
--- OUTSIDE RECORDS SUMMARY | 2018-10-30 19:38 | XMS REPORT ---
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 742591998 Problem Peripheral vascular disease, unspecified I73.9 Active 966790917 Problem Dysphagia, unspecified dysphagia R13.10 Active 66789587 Problem Depression, unspecified depression type F32.9 Active 01040109 Problem Anxiety F41.9 Active 14422389 Problem COPD (chronic obstructive pulmonary disease) J44.9 Active 77326291 Problem Hypertension I10 Active 94271648 Problem Atrial fibrillation I48.91 Active 17499215 Problem Rheumatoid arthritis M06.9 Active 11041797 Problem Tobacco abuse, 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 442583844 Problem Dysthymia F34.1 Active 45351217 Problem Chronic pain syndrome G89.4 Active 583931844 Problem Edema R60.9 Active 546626891 Problem Anemia, unspecified type D64.9 Active 169184838 Problem Iron deficiency anemia, unspecified iron deficiency anemia type D50.9 Active 59223128 Problem Other chronic pain G89.29 Active 17345630 Problem History of oral cancer Z85.819 Active 185767742 Problem 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 187760496 Problem Neuropathy G62.9 Active 066638938 Problem History of cerebrovascular accident with current residual effects I69.90 Active 534606052 Problem Osteoarthritis of foot M19.079 Active 429937182 Problem Chronic obstructive pulmon disease w acute lower resp infct J44.0 Active 974141109 Problem Primary insomnia F51.01 Active 9192661 Problem Insomnia, unspecified G47.00 Active 368226014 Problem Seasonal allergic rhinitis due to pollen J30.1 Active 94045791 ALLERGIES No Information ENCOUNTERS Encounter Location Date Diagnosis [facility] [id number] [place] [address] 64681- 7162 Sep, Chronic pain syndrome G89.4 [facility] [id number] [place] [address] 97638- 0874 Sep, Leg pain, left M79.605 ; Right leg pain M79.604 and Reactive cervical nodes R59.0 [place] [address] 72327- 0802 14 Sep, 2018 [place] [address] 52723- 6405 Sep, Neuropathy G62.9 [facility] [address] [id number] Sep, [place] [address] 43700- 3534 Sep, Lymphadenopathy of left cervical region R59.0 [facility] [place] [id number] [place] [address] 38502- 3204 Sep, Lymphadenopathy of left cervical region R59.0 and Neuropathy G62.9 [facility] [id number] [place] [address] 21368- 3826 Aug, Chronic pain syndrome G89.4 [facility] [id number] [place] [address] 54812- 8835 Aug, [facility] [id number] [place] [address] 01679- 4518 Aug, Peripheral vascular disease, unspecified I73.9 ; Other chronic pain G89.29 ; Chronic obstructive pulmon disease w acute lower resp infct J44.0 and Primary insomnia F51.01 [facility] [id number] [place] [address] 67232- 4694 Aug, Chronic pain syndrome G89.4 [facility] [id number] [place] [address] 89649- 3587 Jul, Chronic pain syndrome G89.4 [facility] [address] 26184- 5118 Jun, Chronic pain syndrome G89.4 [facility] [id number] [place] [address] 84804- 5691 May, Chronic pain syndrome G89.4 [facility] [address] 21913 -8454 Apr, Cough R05 and Viral illness B34.9 [facility] [address] 17885- 9733 Apr, Encounter for immunization Z23 [facility] [address] 95672- 7689 Apr, Chronic pain syndrome G89.4 [facility] [address] 65970 -5356 Apr, Left acute otitis media H66.92 [facility] [id number] [place] [address] 91952- 4755 Mar, Rheumatoid arthritis M06.9 ; Other chronic pain G89.29 ; History of oral cancer Z85.819 and History of tachycardia Z87.898 [facility] [id number] [place] [address] 18451- 3548 Mar, Chronic pain syndrome G89.4 [facility] [id number] [place] [address] 05880- 5780 Feb, Chronic pain syndrome G89.4 [facility] [id number] [place] [address] 57103- 1534 Feb, Chronic pain syndrome G89.4 [facility] [id number] [place] [address] 77143- 6575 Jan, Chronic pain syndrome G89.4 [facility] [id number] [address] 7018 Jan, [facility] [address] [address]- 7638 Dec, Chronic pain syndrome G89.4 [facility] [address] [address]- 8098 November, Chronic pain syndrome G89.4 [facility] [id number] [address]- 4268 November, [facility] [address] [address]- 7748 Oct, Chronic pain syndrome G89.4 [facility] [address] [address]- 6943 Oct, [facility] [id number] [place] [address] 87834- 7251 Oct, Chronic pain syndrome G89.4 [facility] [address] [address]- 0609 Oct, [facility] [address] [address]- 4179 Oct, [facility] [address] [address]- 0852 Sep, Left upper quadrant pain R10.12 ; Chronic pain syndrome G89.4 ; Left lower quadrant pain R10.32 ; Other chronic pain G89.29 ; Sacrococcygeal disorders, not elsewhere classified M53.3 and Seasonal allergic rhinitis due to pollen J30.1 [facility] [address] [address]- 4383 Sep, Chronic pain syndrome G89.4 [facility] [address] [address]- 5530 Sep, [facility] [address] [address]- 5160 Aug, Chronic pain syndrome G89.4 [facility] [address] [address]- 4973 Aug, [facility] [id number] [place] [address] 55597- 8742 Aug, Insomnia, unspecified G47.00 [facility] [id number] [place] [address] 64471- 0881 Jul, [facility] [id number] [place] [address] 24818- 2242 Jul, [facility] [id number] [place] [address] 93274- 5774 Jul, Chronic pain syndrome G89.4 [facility] [id number] [place] [address] 70416- 5736 Jun, Chronic pain syndrome G89.4 [place] [id number] [place] [address] 98919- 0635 Jun, Chronic pain syndrome G89.4 [facility] [id number] [place] [address] 50082- 0354 May, [place] [id number] [place] [address] 69379- 6106 May, Shortness of breath R06.02 ; Peripheral vascular disease, unspecified I73.9 ; Pain in right knee M25.561 ; Other chronic pain G89.29 ; Chest wall pain R07.89 ; Chronic pain syndrome G89.4 ; Primary insomnia F51.01 and Ear pain, left H92.02 [facility] [id number] [place] [address] 81800- 5725 May, Anxiety F41.9 [facility] [id number] [place] [address] 72118- 7076 09 Apr, 2017 Pneumonia due to infectious organism, unspecified laterality , unspecified part of lung J18.9 ; Hypoxia R09.02 ; Bradycardia R00.1 ; History of Clostridium difficile Z87.19 and Primary insomnia F51.01 [facility] [id number] [place] [address] 27058- 8645 Apr, Anxiety F41.9 [facility] [id number] [place] [address] 57534- 5420 Apr, [facility] [id number] [place] [address] 25587- 7495 Mar, Anxiety F41.9 [place] [id number] [place] [address] 38330- 5177 Feb, [place] [address] 41619- 9528 Feb, [place] [id number] [place] [address] 62999- 1055 Feb, Abnormal finding on urinalysis R82.90 [place] [id number] [place] [address] 47905- 7685 Feb, [place] [id number] [place] [address] 20331- 2090 Feb, Shortness of breath R06.02 ; Tachycardia R00.0 ; Cough R05 ; Ill feeling R68.89 and Abnormal finding on urinalysis R82.90 [place] [id number] [place] [address] 45593- 6828 Feb, Anxiety F41.9 [facility] [id number] [place] [address] 93634 -8629 Feb, Sore throat J02.9 and Acute diffuse otitis externa of left ear H60.312 [facility] [id number] [place] [address] 42485- 8594 Jan, [facility] [id number] [place] [address] 23338- 2965 Jan, [facility] [address] [id number] Jan, [facility] [address] [address]- 3485 Jan, Depression, unspecified depression type F32.9 ; Chronic bronchitis, unspecified chronic bronchitis type J42 ; Chronic pain syndrome G89.4 and Anxiety F41.9 [facility] [address] [address]- 6772 Jan, [facility] [id number] [place] [address] 48485- 7444 Jan, [facility] [id number] [place] [address] 69748- 5720 Jan, [facility] [id number] [place] [address] [id number] Jan, Chronic pain syndrome G89.4 [facility] [address] [place] [id number] Dec, History of right knee surgery Z98.890 [facility] [id number] [place] [address] 37120- 6728 Dec, [facility] [id number] [place] [address] 74548- 2494 Dec, Chronic pain syndrome G89.4 [facility] [id number] [place] [address] 89390- 6866 November, Anxiety F41.9 [facility] [id number] [place] [address] 00864 -0997 November, Acute cystitis without hematuria N30.00 [facility] [id number] [place] [address] 69427 -2271 November, Fever, unspecified fever cause R50.9 and Acute cystitis without hematuria N30.00 [facility] [address] [address]- 7248 November, Chronic pain syndrome G89.4 [facility] [id number] [place] [address] 44733- 6568 Oct, Anxiety F41.9 [place] [id number] [place] [address] 77237- 0456 Oct, Chronic pain syndrome G89.4 [place] [id number] [place] [address] 08881- 0626 Oct, Chronic pain syndrome G89.4 [place] [id number] [place] [address] 93139- 0399 Oct, [place] [id number] [place] [address] 43187- 1684 Oct, Chronic pain syndrome G89.4 ; Pain in right knee M25.561 ; History of Clostridium difficile Z87.19 ; Iron deficiency anemia, unspecified iron deficiency anemia type D50.9 ; Peripheral vascular disease, unspecified I73.9 and Atrial fibrillation I48.91 [place] [id number] [place] [address] 28207- 4578 Oct, [place] [id number] [place] [address] 58181- 3535 Oct, Chronic pain syndrome G89.4 [place] [id number] [place] [address] 56423- 3680 Sep, [place] [id number] [place] [address] 74436- 3522 Sep, Depression, unspecified depression type F32.9 ; Chronic bronchitis, unspecified chronic bronchitis type J42 ; Chronic pain syndrome G89.4 and Anxiety F41.9 [facility] [address] [place] [id number] Sep, History of Clostridium difficile infection Z86.19 and History of stroke Z86.73 [place] [id number] [place] [address] [id number] Sep, Anxiety F41.9 [place] [id number] [place] [address] 57557- 3595 Sep, Chronic pain syndrome G89.4 [facility] [address] [address]- 3303 Sep, [facility] [id number] [place] [address] [id number] Sep, [facility] [address] [address]- 6074 Aug, Anxiety F41.9 [facility] [id number] [place] [address] 59241 2546 Aug, Anxiety F41.9 [facility] [id number] [place] [address] 33222- 5496 Aug, [facility] [id number] [place] [address] 29610- 5738 14 Aug, 2016 Acute knee pain, unspecified laterality M25.569 [facility] [id number] [place] [address] 51153- 3255 Aug, [facility] [id number] [place] [address] 48787- 6947 Aug, Chronic pain syndrome G89.4 [facility] [id number] [place] [address] 85975- 2278 Aug, [facility] [address] [address]- 1318 Aug, [facility] [id number] [place] [address] 40855- 7835 Jul, [facility] [address] [address]- 0774 Jul, Anxiety F41.9 [facility] [address] [address]- 3987 Jul, Clostridium difficile diarrhea A04.7 [facility] [address] [place] [id number] Jul, Clostridium difficile diarrhea A04.7 ; Chronic pain syndrome G89.4 ; Chronic obstructive pulmon disease w acute lower resp infct J44.0 and Pain in right knee M25.561 [facility] [id number] [place] [address] [id number] Jul, [facility] [address] [address] -1218 Jul, Anxiety F41.9 and Chronic pain syndrome G89.4 [facility] [id number] [place] [address] 21174- 3290 Jun, Anxiety F41.9 [facility] [id number] [place] [address] 02058- 5257 Jun, Rheumatoid arthritis 714.0 [facility] [id number] [place] [address] 17580- 7147 Jun, Chronic pain syndrome G89.4 [facility] [id number] [place] [address] 47917- 3430 Jun, [facility] [id number] [place] [address] 50858- 7404 Jun, [facility] [id number] [place] [address] 42603- 6719 Jun, History of pneumonia Z87.01 and History of Clostridium difficile Z87.19 [facility] [id number] [place] [address] 52479- 6976 Jun, [facility] [id number] [place] [address] 63647- 3897 May, [facility] [address] [address]- 5469 May, Anxiety F41.9 [facility] [id number] [place] [address] 12723- 2487 May, Chronic pain syndrome G89.4 [facility] [id number] [place] [address] 64529- 7845 May, Chronic bronchitis, unspecified chronic bronchitis type J42 [facility] [address] [address]- 9428 May, [facility] [id number] [place] [address] 24999- 7291 May, C. difficile diarrhea A04.7 ; Peripheral edema R60.9 ; COPD (chronic obstructive pulmonary disease) J44.9 ; Rheumatoid arthritis, involving unspecified site, unspecified rheumatoid factor presence M06.9 ; Pain in right knee M25.561 ; Pain in left knee M25.562 and Other chronic pain G89.29 [facility] [id number] [place] [address] 32395- 4912 May, [facility] [id number] [place] [address] 23353- 4738 May, [facility] [id number] [place] [address] 15203- 0408 May, Anxiety F41.9 [facility] [id number] [place] [address] 61871- 0749 Apr, [facility] [id number] [place] [address] 69158- 3864 Apr, Chronic pain syndrome G89.4 [facility] [id number] [place] [address] 65850- 4702 Apr, Leg pain, left M79.605 [facility] [id number] [place] [address] 25392- 2578 Apr, [facility] [id number] [address]- 0012 Apr, [facility] [id number] [place] [address] 22398- 5028 Apr, [facility] [id number] [place] [address] 16698- 6358 Mar, Chronic pain syndrome G89.4 [facility] [id number] [address]- 6638 22 Mar, 2016 Acute frontal sinusitis, recurrence not specified J01.10 [place] [id number] [place] [address] 23732- 0206 20 Mar, 2016 Iron deficiency anemia, unspecified iron deficiency anemia type D50.9 ; Rheumatoid arthritis with positive rheumatoid factor, involving unspecified site M05.9 and Depression, unspecified depression type F32.9 [place] [id number] [place] [address] 16689- 1968 13 Mar, 2016 Iron deficiency anemia, unspecified iron deficiency anemia type D50.9 ; Depression, unspecified depression type F32.9 and Rheumatoid arthritis with positive rheumatoid factor, involving unspecified site M05.9 [place] [id number] [place] [address] 72837- 5353 06 Mar, 2016 [place] [id number] [place] [address] 08295- 8209 Mar, [place] [id number] [place] [address] 05127- 4563 Feb, Chronic pain syndrome G89.4 [place] [id number] [place] [address] 91245- 1364 30 Feb, 2016 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 ; Status post CVA Z86.73 ; Hemiplegia G81.90 and Anemia, unspecified type D64.9 [place] [id number] [place] [address] 33636- 9334 Feb, [place] [id number] [place] [address] 42804- 8225 Feb, Anemia, unspecified type D64.9 [place] [id number] [place] [address] 43324- 7013 Feb, [place] [id number] [place] [address] 51681- 9463 Feb, Iron deficiency anemia, unspecified iron deficiency anemia type D50.9 [facility] [address] [address]- 5801 Feb, [facility] [id number] [place] [address] 87056- 8317 Feb, Chronic bronchitis, unspecified chronic bronchitis type J42 [facility] [id number] [place] [address] 91426- 4519 Feb, Iron deficiency anemia, unspecified iron deficiency anemia type D50.9 [facility] [id number] [place] [address] 75607- 3142 Feb, Chronic pain syndrome G89.4 [facility] [id number] [place] [address] 68908- 7298 Feb, Anemia, unspecified type D64.9 and Hypoxia R09.02 [facility] [id number] [place] [address] 86097- 4757 Feb, Anemia, unspecified type D64.9 [facility] [id number] [place] [address] 94823- 1371 Jan, [facility] [id number] [place] [address] 59134- 2547 Jan, Anemia, unspecified type D64.9 [facility] [address] [address]- 8395 Jan, [facility] [id number] [place] [address] 55966 2543 Jan, Anemia, unspecified type D64.9 [facility] [id number] [place] [address] 49863- 3746 Jan, Anemia, unspecified type D64.9 [facility] [address] [address]- 0838 Jan, [facility] [id number] [place] [address] 92303- 1699 Jan, Anemia, unspecified type D64.9 [facility] [address] [address]- 7094 Jan, [facility] [id number] [place] [address] 85363- 5953 Jan, [facility] [id number] [place] [address] 58538- 7252 Jan, Chronic pain syndrome G89.4 [facility] [id number] [place] [address] 97039- 1553 Jan, Anemia, unspecified type D64.9 [facility] [id number] [place] [address] 42205- 0214 Jan, Dysthymia F34.1 ; Cervicalgia M54.2 ; Fatigue, unspecified type R53.83 and Depression, unspecified depression type F32.9 [place] [id number] [place] [address] 07958- 8986 Dec, [facility] [id number] [place] [address] 35393- 5157 Dec, Anxiety F41.9 [place] [id number] [place] [address] 22806- 5405 Dec, Chronic pain syndrome G89.4 [facility] [id number] [place] [address] 26749- 7072 November, [facility] [id number] [place] [address] 42057- 1627 November, Edema R60.9 and Dizziness R42 [facility] [id number] [place] [address] 12654- 0663 November, [facility] [id number] [place] [address] 14871- 4020 November, [facility] [id number] [place] [address] 54598- 3186 November, COPD (chronic obstructive pulmonary disease) J44.9 ; Increased tracheal secretions J39.8 and Edema R60.9 [facility] [id number] [place] [id number] Oct, [facility] [id number] [place] [id number] Oct, Shortness of breath R06.02 and Edema R60.9 [facility] [id number] [place] [phone] Oct, Chronic bronchitis, unspecified chronic bronchitis type J42 ; Peripheral vascular disease, unspecified I73.9 ; Rheumatoid arthritis M06.9 and Atrial fibrillation I48.91 [address] [id number] [place] [address] 82180- 8154 Oct, [place] [id number] [place] [address] 07633- 3099 Oct, [facility] [id number] [place] [address] 69902- 7926 Oct, [facility] [id number] [place] [address] 09134- 5481 Oct, [facility] [id number] [place] [address] 01125 -0488 Oct, COPD exacerbation J44.1 [facility] [id number] [place] [address] 65854- 1079 Sep, [facility] [id number] [place] [address] 23953- 0732 Sep, [place] [id number] [place] [address] 69800- 3366 Sep, [facility] [id number] [place] [address] 33064- 9772 Aug, [place] [id number] [place] [address] 72981- 0888 Aug, 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 and PVD (peripheral vascular disease ) I73.9 [facility] [id number] [place] [address] 00296- 9585 Aug, Bronchitis J40 ; COPD (chronic obstructive pulmonary disease ) J44.9 and Dysthymia F34.1 [facility] [id number] [place] [address] 96973- 0316 Aug, [facility] [address] 18226- 4270 Jul, [facility] [id number] [place] [address] 16523- 9108 Jul, [facility] [id number] [place] [address] 48594- 1298 Jul, [facility] [id number] [place] [address] 83049- 6384 Jun, [facility] [id number] [place] [address] 19330- 4334 Jun, [facility] [id number] [place] [address] 01930- 3684 Jun, Peripheral vascular disease I73.9 [facility] [id number] [place] [address] 17494- 1337 Jun, [facility] [id number] [place] [address] 15344- 4984 Jun, [facility] [id number] [place] [address] 86184- 2373 Jun, Leg pain, left M79.605 ; Dysphagia, unspecified dysphagia R13.10 ; Insomnia, unspecified type G47.00 ; PVD (peripheral vascular disease) I73.9 and 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 [facility] [id number] [place] [address] 94763- 5126 May, [facility] [id number] [address]- 1511 May, [facility] [address] [facility] [id number] [place] [address]- 8972 May, [facility] [address] [facility] [id number] [place] [address]- 7526 May, [facility] [id number] [place] [address], [place] [address]- 7661 May, [facility] [address] [facility] [id number] [place] [address]- 1891 Apr, [facility] [id number] [place] [address], [place] [address]- 8337 Apr, [facility] [id number] [place] [address]- 0295 Mar, [facility] [id number] [place] [address], [place] [address]- 6983 Mar, [facility] [address] [address]- 7906 Feb, [facility] [id number] [address]- 4262 Feb, Nicotine abuse 305.1 ; Arthralgia 719.40 and 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 [facility] [address] [address]- 0592 Feb, [facility] [address] [address]- 7993 Jan, [facility] [address] [address] Jan, [facility] [address] [address] 8575 Jan, [facility] [address] [address]- 2317 Jan, [facility] [address] [address]- 0835 Jan, 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 ; Rheumatoid arthritis 714.0 ; Hypertension 401.9 ; GERD (gastroesophageal reflux disease) 530.81 ; Nicotine addiction 305.1 and Leukocytosis 288.60 [facility] [address] [address]- 5657 Jan, 2014 [facility] [id number] [address]- 3717 Jan, [facility] [address] [address]- 5368 Jan, [facility] [address] [address]- 4106 Jan, [facility] [address] [address]- 7974 Jan, [facility] [address] [address]- 7487 Dec, [facility] [address] [address]- 6994 Dec, [facility] [address] [address]- 2899 Dec, [facility] [address] [address]- 0572 Dec, [facility] [address] [address]- 2647 November, [facility] [id number] [address]- 3230 November, [facility] [address] [address]- 4856 November, Shortness of breath 786.05 [facility] [id number] [address]- 0726 November, Rheumatoid arthritis 714.0 [facility] [id number] [address]- 3554 November, 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 [facility] [id number] [place] [address] 21282- 9307 November, Neuropathy 355.9 ; Insomnia 780.52 ; Dysthymia 300.4 ; Shortness of breath 786.05 ; Rheumatoid arthritis 714.0 and Nausea 787.02 [facility] [id number] [place] [address] 71866- 1341 November, [facility] [id number] [place] [address] 95905- 7685 November, [facility] [id number] [place] [address] 91637- 0997 Oct, [facility] [id number] [place] [address] 24264- 0396 Oct, [facility] [id number] [place] [address] 07625- 4349 Oct, [facility] [id number] [place] [address] 65008- 8136 Oct, [facility] [id number] [place] [address] 12562- 5998 Sep, [facility] [address] [address]- 4372 Sep, [facility] [id number] [place] [address] 42176- 3797 Sep, [facility] [address]- 0484 Sep, [facility] [id number] [place] [address] 91973- 7378 Sep, [facility] [address] 2457 Sep, [facility] [id number] [place] [address]- 8597 Sep, [facility] [place] [facility] [address] [id number] [place] [address]- 1174 Sep, [facility] [place] [facility] [address] [id number] [place] [address]- 6546 Aug, [facility] [place] [facility] [address] [id number] [place] [address]- 9266 Aug, 2014 [facility] [place] [facility] [address] [id number] [place] [address]- 2946 Aug, [facility] [place] [facility] [address] [id number] [place] [address]- 4426 Aug, 2014 [facility] [place] [facility] [address] [facility] [id number] [place] [address]- 9491 Aug, [facility] [place] [facility] [address] [facility] [id number] [place] [address]- 3659 Aug, [facility] [place] [facility] [address] [id number] [place] [address]- 3349 Jul, [facility] [place] [facility] [address] [id number] [place] [address]- 6417 Jul, [facility] [place] [facility] [address] [facility] [id number] [place] [address]- 2550 Jul, [facility] [place] [facility] [address] [id number] [place] [address]- 5928 Jul, [facility] [place] [facility] [address] [id number] [place] [address] 254 Jul, [facility] [place] [facility] [address] [id number] [place] [address]- 5316 Jul, [facility] [place] [facility] [address] [facility] [id number] [place] [address]- 8206 Jul, [facility] [place] [facility] [address] [facility] [id number] [place] [address]- 1571 Jul, [facility] [place] [facility] [address] [id number] [place] [address]- 4260 Jul, [facility] [place] [facility] [address] [id number] [place] [address]- 7843 Jul, [facility] [place] [facility] [address] [id number] [place] [address]- 7605 Jun, [facility] [place] [facility] [address] [id number] [place] [address]- 3416 Jun, [facility] [place] [facility] [address] [id number] [place] [address]- 9656 Jun, [facility] [place] [facility] [address] [id number] [place] [address]- 5133 Jun, [facility] [place] [facility] [address] [id number] [place] [address]- 5012 Jun, [facility] [place] [facility] [address] [id number] [place] [address]- 1779 Jun, [facility] [place] [facility] [address] [id number] [place] [address]- 5885 Jun, [facility] [place] [facility] [address] [id number] [place] [address]- 5956 Jun, [facility] [place] [facility] [address] [id number] [place] [address]- 8070 Jun, [facility] [place] [facility] [address] [id number] [place] [address]- 4936 Jun, [facility] [place] [facility] [address] [id number] [place] [address]- 7608 Jun, [facility] [place] [facility] [address] [id number] [place] [address]- 4715 Jun, [facility] [place] [facility] [address] [id number] [place] 8775 Jun, [facility] [place] [facility] [address] [id number] [place] [address]- 9699 Jun, [facility] [place] [facility] [address] [id number] [place] [address]- 5584 Jun, [facility] [place] [facility] [address] [id number] [place] [address]- 2948 Jun, [facility] [place] [facility] [address] [id number] [place] [address]- 3187 May, [facility] [place] [facility] [address] [id number] [place] [address]- 7322 May, [facility] [place] [facility] [address] [id number] [place] [address]- 4118 May, [facility] [place] [facility] [address] [id number] [place] [address]- 2735 May, [facility] [place] [facility] [address] [id number] [place] [address]- 0648 May, [facility] [place] [facility] [address] [id number] [place] [address]- 6192 May, [facility] [place] [facility] [address] [id number] [place] [address]- 7160 May, [facility] [place] [facility] [address] [facility] [id number] [place] [address]- 7009 May, [facility] [place] [facility] [address] [id number] [place] [address]- 9509 May, [facility] [place] [facility] [address] [id number] [address]- 1754 Apr, [facility] [place] [facility] [address] [id number] [place] [address]- 2409 Apr, [facility] [place] [facility] [address] [id number] [place] [address]- 0098 Apr, [facility] [place] [facility] [address] [id number] [address]- 9149 Apr, [facility] [place] [facility] [address] [id number] [place] [address]- 0402 Apr, [facility] [place] [facility] [address] [id number] [place] [address]- 0978 Apr, [facility] [place] [facility] [address] [id number] [place] [address]- 8807 Apr, [facility] [place] [facility] [address] [id number] [place] [address]- 2139 Apr, [facility] [place] [facility] [address] [id number] [place] [address]- 0098 Apr, [facility] [place] [facility] [address] [id number] [place] [address]- 5229 Apr, [facility] [place] [facility] [address] [id number] [place] [address]- 4812 Apr, [facility] [place] [facility] [address] [id number] [place] [address]- 1931 Apr, [facility] [place] [facility] [address] [id number] [place] [address]- 4201 22 Mar, 2014 [facility] [place] [facility] [address] [id number] [place] [address]- 1504 22 Mar, 2014 [facility] [place] [facility] [address] [id number] [place] [address]- 2198 19 Mar, 2014 [facility] [place] [facility] [address] [id number] [place] [address]- 9135 19 Mar, 2013 [facility] [place] [facility] [address] [id number] [place] [address]- 8435 11 Mar, 2014 [facility] [place] [facility] [address] [id number] [place] [address]- 2546 11 Mar, 2013 [facility] [place] [facility] [address] [id number] [place] [address]- 1677 11 Mar, 2013 [facility] [place] [facility] [address] [id number] [place] [address]- 4618 Mar, [facility] [place] [facility] [address] [id number] [place] [address]- 5652 Mar, [facility] [place] [facility] [address] [id number] [place] [address]- 9570 Mar, [facility] [place] [facility] [address] [id number] [place] [address]- 7615 Feb, [facility] [place] [facility] [address] [id number] [place] [address]- 5204 Feb, [facility] [place] [facility] [address] [id number] [place] [address]- 2028 Feb, [facility] [place] [facility] [address] [id number] [place] [address]- 9552 Feb, [facility] [place] [facility] [address] [id number] [place] [address]- 7678 Feb, [facility] [place] [facility] [address] [id number] [place] [address]- 7756 Feb, [facility] [place] [facility] [address] [id number] [place] [address]- 9848 Feb, [facility] [place] [facility] [address] [id number] [place] [address]- 4697 Feb, [facility] [place] [facility] [address] [id number] [place] [address]- 3729 Feb, [facility] [place] [facility] [address] [id number] [place] [address]- 6554 Feb, [facility] [place] [facility] [address] [id number] [place] [address]- 5975 Feb, [facility] [place] [facility] [address] [id number] [place] [address]- 8741 Feb, [facility] [place] [facility] [address] [id number] [place] [address]- 1795 Feb, [facility] [place] [facility] [address] [id number] [place] [address]- 3281 Feb, [facility] [place] [facility] [address] [id number] [place] [address]- 4936 Feb, [facility] [place] [facility] [address] [id number] [place] [address]- 9007 Feb, [facility] [place] [facility] [address] [id number] [place] [address]- 7206 Jan, [facility] [place] [facility] [address] [id number] [place] [address]- 5490 Jan, [facility] [place] [facility] [address] [id number] [place] [address]- 3617 Jan, [facility] [place] [facility] [address] [id number] [place] [address]- 2191 Jan, [facility] [place] [facility] [address] [id number] [place] [address]- 3710 Jan, [facility] [place] [facility] [address] [id number] [place] [address]- 2566 Jan, [facility] [place] [facility] [address] [id number] [place] [address]- 8463 Dec, [facility] [place] [facility] [address] [id number] [place] [address]- 5968 Dec, [facility] [place] [facility] [address] [id number] [place] [address]- 2817 Dec, [facility] [place] [facility] [address] [id number] [place] [address]- 1787 Dec, [facility] [place] [facility] [address] [id number] [place] [address]- 0114 Dec, [facility] [place] [facility] [address] [id number] [place] [address]- 4600 Dec, [facility] [place] [facility] [address] [id number] [place] [address]- 3231 Dec, [facility] [place] [facility] [address] [id number] [place] [address]- 2026 Dec, [facility] [place] [facility] [address] [id number] [place] [address]- 8924 November, [facility] [place] [facility] [address] [id number] [place] [address]- 5108 November, [facility] [place] [facility] [address] [id number] [place] [address]- 4433 November, [facility] [place] [facility] [address] [id number] [place] [address]- 5103 November, [facility] [place] [facility] [address] [id number] [place] [address]- 1881 November, [facility] [place] [facility] [address] [id number] [place] [address]- 4098 November, [facility] [place] [facility] [address] [id number] [place] [address]- 5858 Oct, [facility] [place] [facility] [address] [id number] [place] [address]- 4270 Oct, [facility] [place] [facility] [address] [id number] [place] [address]- 9514 Oct, [facility] [place] [facility] [address] [id number] [place] [address]- 1133 Oct, [facility] [place] [facility] [address] [id number] [place] [address]- 6950 Sep, [facility] [place] [facility] [address] [id number] [place] [address]- 0540 Sep, [facility] [place] [facility] [address] [id number] [place] [address]- 7159 Sep, [facility] [place] [facility] [address] [id number] [place] [address]- 6546 Sep, [facility] [place] [facility] [address] [id number] [place] [address]- 3751 Sep, [facility] [place] [facility] [address] [id number] [place] [address]- 2830 Sep, [facility] [place] [facility] [address] [id number] [place] [address]- 7026 Aug, [facility] [place] [facility] [address] [id number] [place] [address]- 7636 Aug, [facility] [place] [facility] [address] [id number] [place] [address]- 5970 Aug, [facility] [place] [facility] [address] [id number] [place] [address]- 0556 Aug, [facility] [place] [facility] [address] [id number] [place] [address]- 5086 Aug, [facility] [place] [facility] [address] [id number] [place] [address]- 1016 Aug, [facility] [place] [facility] [address] [id number] [place] [address]- 0955 Jul, [facility] [place] [facility] [address] [id number] [place] [address] Jul, [facility] [place] [facility] [address] [id number] [place] [address] Jul, [facility] [place] [facility] [address] [id number] [place] [address] Jul, [facility] [place] [facility] [address] [id number] [place] [address] Jul, [facility] [place] [facility] [address] [id number] [place] [address] Jul, [facility] [place] [facility] [address] [id number] [place] [address] Jul, [facility] [place] [facility] [address] [id number] [place] [address] Jul, [facility] [place] [facility] [address] [id number] [place] [address] Jul, [facility] [address] [id number] [place] [address] Jul, [facility] [address] [id number] [place] [address] Jul, [facility] [address] [id number] [place] [address] Jul, [facility] [address] [id number] [place] [address] Jul, [facility] [address] [id number] [place] [address] Jul, [facility] [address] [id number] [place] [address] Jul, [facility] [address] [id number] [place] [address] Jun, [facility] [address] [id number] [place] [address] Jun, [facility] [address] [id number] [place] [address] Jun, [facility] [address] [id number] [place] [address] Jun, [facility] [address] [id number] [place] [address] May, [facility] [address] [id number] [place] [address] May, [facility] [address] [id number] [place] [id number] May, [facility] [address] [id number] [place] [address] May, [facility] [address] [id number] [place] [address] May, [facility] [address] [facility] [id number] [address] May, [facility] [address] [id number] [address] May, [facility] [id number] [address] May, [facility] [id number] [address] May, [facility] [id number] [id number] May, [facility] [id number] [address] May, [facility] [id number] [id number] May, [facility] [address] [id number] [address] May, [facility] [address] [id number] [id number] May, [facility] [address] [id number] [address] May, IMMUNIZATIONS No Known Immunizations SOCIAL HISTORY Never Assessed REASON FOR VISIT EMR-[facility] PLAN OF CARE VITAL SIGNS MEDICATIONS Unknown [...] Diarrhea, leukocytosis--[facility] 01/08/16 Hospitalization History pseudomemranous colitis, sepsis--[facility] 04/21/2016 Hospitalization History C Diff--[facility] 05/10/2016 Hospitalization History sepsis, pneumonia, diarrhea--[facility] 06/11/16 Hospitalization History recurrent cdiff, pneumonia-[facility] 07/22/16 Hospitalization History sepsis,pneumonia- [facility]
[2018-10-30] MEDS ORDERED: DOXYCYCLINE 100 MG (VIBRAMYCIN) TABLET PO STA (19:41)
[2018-10-30] MEDS ORDERED: DEXAMETHASONE 4 MG/ML SDV (DECADRON) IV ONE (19:45)
[2018-10-30] MEDS ORDERED: DOXY100T2 PO (19:47)
[2018-10-30 19:58] VITALS: BP 107/63
== END 2018-10-30 20:02 | disposition home or self-care (01) ==
LOC: EDUNIT# 18:16 → ER 18:17
DX: J06.9 Acute upper respiratory infection, unspecified (principal); J43.9 Emphysema, unspecified; E78.00 Pure hypercholesterolemia, unspecified; I10 Essential (primary) hypertension; I73.9 Peripheral vascular disease, unspecified; F03.90 Unspecified dementia, unspecified severity, without behavioral disturbance, psychotic disturbance, mood disturbance, and anxiety; F41.9 Anxiety disorder, unspecified; F32.9 Major depressive disorder, single episode, unspecified; M06.9 Rheumatoid arthritis, unspecified; Z87.19 Personal history of other diseases of the digestive system; Z99.81 Dependence on supplemental oxygen; Z88.8 Allergy status to other drugs, medicaments and biological substances; Z82.49 Family history of ischemic heart disease and other diseases of the circulatory system; Z80.1 Family history of malignant neoplasm of trachea, bronchus and lung; Z79.01 Long term (current) use of anticoagulants; Z86.73 Personal history of transient ischemic attack (TIA), and cerebral infarction without residual deficits; Z86.19 Personal history of other infectious and parasitic diseases; Z79.82 Long term (current) use of aspirin; Z79.52 Long term (current) use of systemic steroids; Z87.891 Personal history of nicotine dependence; Z93.1 Gastrostomy status; Z95.820 Peripheral vascular angioplasty status with implants and grafts; Z85.819 Personal history of malignant neoplasm of unspecified site of lip, oral cavity, and pharynx
CPT/HCPCS: 36415; 71046; 80053; 81000; 83605; 85007; 85027; 85610; 85730; 87040; 87088; 87804; 96361; 96374

== ENCOUNTER → 2019-04-18 | Outpatient (CLI) | payer MEDICARE, MEDICAID ==
[~2019-04-18] MED LIST changes: +HOLD METFORMIN - RECEIVED CONTRAST 20 ML VIAL IV SCH; +IOHEXOL 350 MG/ML 100 ML (OMNIPAQUE 350) VIAL IV ONE; +NS 100 ML (IVPB) BAG IV ONE; +OMEP20CA13 PO; +RT-ALBUTEROL SULF 2.5 MG/3 ML PRE-MIX VIAL INH ONE
[2019-04-18 11:14] LABS: BUN/CREATININE RATIO 15; CREATININE SERUM 0.82 MG/DL (0.60-1.30); GFR ESTIMATED > 60
--- NOTE | 2019-04-18 14:05 | Diagnostic Imaging Report ---
PROCEDURE: CT chest with contrast only. TECHNIQUE: Multiple contiguous axial images were obtained through the chest after administration of intravenous contrast. Auto Exposure Controls were utilized during the CT exam to meet ALARA standards for radiation dose reduction. INDICATION: Allergic rhinitis, cough, tobaccoism. COMPARISON: 04/09/2017. FINDINGS: Previously, there were features of multifocal pneumonia. In the posteromedial left lower lobe, there is some linear pleural/parenchymal scarring and subjacent trace atelectasis. This is a chronic albeit improved finding. No findings of acute pneumonia on followup and no suspicious lung masses. No evidence for adenopathy. Nonaneurysmal aortic atherosclerotic vascular calcifications and coronary atherosclerotic calcifications are chronic. No effusion or pneumothorax. No lymphadenopathy. The visualized upper abdomen reveals a few gallstones but no acute finding. Extensive renal atherosclerotic vascular calcifications are present. IMPRESSION: No evidence for pneumonia or suspicious mass. No acute chest pathology. Nonaneurysmal atherosclerosis and cholelithiasis are noted. Dictated by: Dictated on workstation # [id number]
== END ==
LOC: RT 10:45
PROVIDERS: ATTEND Nurse Practitioner Family
DX: I25.10 Atherosclerotic heart disease of native coronary artery without angina pectoris (principal); J44.9 Chronic obstructive pulmonary disease, unspecified; G47.36 Sleep related hypoventilation in conditions classified elsewhere; J30.9 Allergic rhinitis, unspecified; K80.20 Calculus of gallbladder without cholecystitis without obstruction; R91.8 Other nonspecific abnormal finding of lung field; Z72.0 Tobacco use
CPT/HCPCS: 36415; 71260; 82565; 84520; 94060; 94726; 94729

== ENCOUNTER → 2019-05-03 | Outpatient (CLI) | payer MEDICARE, MEDICAID ==
[~2019-05-03] VITALS: Ht 160 cm; Wt 82.0 kg
[~2019-05-03] MED LIST changes: +CATHETER FLUSH 10 ML SYR IV PRN; -HOLD METFORMIN - RECEIVED CONTRAST 20 ML VIAL IV SCH; -IOHEXOL 350 MG/ML 100 ML (OMNIPAQUE 350) VIAL IV ONE; -NS 100 ML (IVPB) BAG IV ONE; +REGADENOSON 0.4 MG/5 ML SYR (LEXISCAN) IV ONE; -RT-ALBUTEROL SULF 2.5 MG/3 ML PRE-MIX VIAL INH ONE
[2019-05-03 09:28] VITALS: BP 142/81
--- NOTE | 2019-05-03 16:53 | STRESS TEST ---
DATE OF SERVICE: 05/03/2019 RESTING AND POST REGADENOSON TECHNETIUM-99M TETROFOSMIN SPECT CT IMAGING ORDERING PHYSICIAN: Shanna Longoria APRN PRIMARY PHYSICIAN: Didi Louie APRN CLINICAL DIAGNOSIS: Shortness of breath. Baseline images were carried out after injection of 10.2 mCi of technetium-99m Tetrofosmin. This was followed by 0.4 mg regadenoson and 28.5 mCi of technetium-99m Tetrofosmin for stress imaging. The electrocardiogram showed sinus rhythm at baseline. There was subtle nonspecific ST abnormality. The electrocardiogram did not change significantly with the regadenoson infusion. The patient noted some nausea and shortness of breath following regadenoson infusion, which resolved in a few minutes. Review of images at rest and following stress does not indicate any significant perfusion defects consistent with significant myocardial ischemia or infarction. Gated images show normal global left ventricular systolic function with normal regional wall motion. Left ventricular ejection fraction is calculated to be 74%. Left ventricular end diastolic volume is 20 mL. TID is absent (1.05). CONCLUSIONS: 1. No evidence of any significant myocardial ischemia or infarction on this study. 2. Normal regional wall motion. 3. Normal global left ventricular systolic function with a calculated ejection fraction of 74%. Job ID: [id number] DocumentID: [id number] Dictated Date: 05/03/2019 13:35:29 Button Facing Machine Operator Date: 05/03/2019 16:52:25 Dictated By: SKYLAR LOPEZ MD, MA, FACP, FACC,
== END ==
LOC: CARD 07:26
PROVIDERS: ATTEND Nurse Practitioner Family
DX: I48.92 Unspecified atrial flutter (principal)
CPT/HCPCS: 78452; 93017

== ENCOUNTER 2019-06-07 11:24 | Outpatient (CLI) | payer MEDICARE, MEDICAID ==
[~2019-06-07] VITALS: Ht 160 cm; Wt 87.3 kg
[~2019-06-07 11:24] MED LIST changes: -CATHETER FLUSH 10 ML SYR IV PRN; -REGADENOSON 0.4 MG/5 ML SYR (LEXISCAN) IV ONE
[2019-06-07] MEDS ORDERED: PRAV20TA3 PO (12:08)
[2019-06-07] MEDS ORDERED: HYDR-3820 PO (12:12)
[2019-06-07] MEDS ORDERED: ZOLP10TA PO (12:12)
== END 2019-06-07 12:21 | disposition home or self-care (01) ==
LOC: PREOP 11:24
PROVIDERS: ATTEND Surgery
DX: Z01.818 Encounter for other preprocedural examination (principal)

== ENCOUNTER 2019-06-08 09:29 | Day surgery (SDC) | payer MEDICARE, MEDICAID ==
[~2019-06-08] VITALS: Ht 160 cm; Wt 87.3 kg
[2019-06-08] VITALS (7 sets, daily range): BP systolic 109–140; BP diastolic 52–70
[~2019-06-08 09:29] MED LIST changes: +PRAV20TA3 PO; +ZOLP10TA PO
[2019-06-08] MEDS ORDERED: CLINDAMYCIN 600 MG/50 ML IVPB 50 ML IV ONE (09:30)
[2019-06-08] MEDS ORDERED: 0.9% SODIUM CHLORIDE PF INJ 20 ML VIAL ONE (09:42)
[2019-06-08] MEDS ORDERED: HEParin (CENTRAL IV FLUSH) 500 UNIT/5 ML SYR ONE (09:42)
[2019-06-08] MEDS ORDERED: BUP/EPI 0.5% 1:200,000 (MARCAINE) 10ML VIAL IJ ONE (09:42)
[2019-06-08] MEDS ORDERED: LIDOCAINE PF 2% 5 ML (XYLOCAINE) VIAL ONE (09:59)
[2019-06-08] MEDS ORDERED: proPOfol 200 MG/20 ML (DIPRIVAN) VIAL IV ONE (09:59)
[2019-06-08] MEDS ORDERED: CATHETER FLUSH 10 ML SYR IV PRN (10:00)
[2019-06-08] MEDS ORDERED: MIDAZOLAM 2 MG/2 ML (VERSED) VIAL ONE (10:00)
[2019-06-08] MEDS ORDERED: fentaNYL INJECTION 100 MCG/2 ML AMP ONE (10:00)
[2019-06-08] MEDS ORDERED: LACTATED RINGERS 1,000 ML IV PRN (10:15)
--- NOTE | 2019-06-08 10:34 | Progress Note-Pre Operative ---
Pre-Operative Progress Note H&P Reviewed The H&P was reviewed, patient examined and no changes noted. Time Seen by Provider: 10:32 Date H&P Reviewed: Jun 08, 2019 Time H&P Reviewed: 10:31 Pre-Operative Diagnosis: Venous insufficiency, SCCA of mouth JEANNE EASON DO Jun 08, 2019 10:34 POS
[2019-06-08] MEDS ORDERED: PHENYLEPHRINE 100 MCG/ML 10 ML (ANESTHESIA) SYR ONE (10:57)
--- NOTE | 2019-06-08 11:12 | Progress Note-Post Operative ---
Post-Operative Progess Note Surgeon (s)/Lehr Cutter (s) Surgeon JEANNE EASON DO Lehr Cutter: JULIUS SherwoodII Pre-Operative Diagnosis Venous insufficiency, SCCA of mouth Post-Operative Diagnosis same Procedure & Operative Findings Date of Procedure 06/08/19 Procedure Performed/Findings Juliana-cath insertion Anesthesia Type IV sedation by DOCKET SPECIALIST Estimated Blood Loss Estimated blood loss (mL): scant Specimens/Packing Specimens Removed none JEANNE EASON DO Jun 08, 2019 11:12 POS
--- NOTE | 2019-06-08 11:14 | Discharge Inst-Surgical ---
Discharge Inst-Surgical Depart Medication/Instructions New, Converted or Re-Newed RX: Other (pt has home meds) Patient Instructions Follow up Appt: Make appointment for 1 week. [phone] Instructions: No lifting greater than 20 pounds. No strenuous activity. May shower in 24 hours, no tub bath or soaking. Use incentive spirometer at home as directed. No Smoking Skin/Wound Care: May remove bandages in am. You need to leave the Dermabond on incision it will fall off on it's own. Symptoms to Report: Appetite Changes, Extremity Discoloration, Numbness/Tingling, Swelling Increased, Bleeding Excessive, Eyesight Changes, Pain Increased, Urine Color Change, Constipation(Persistent), Fever over 101 degree F, Pain/Pressure in chest, Urinating Difficulty, Cough Up/Vomit Blood, Heart Beat Irreg/Pounding, Pain/Pressure in jaw, Cramps in feet or legs, Lightheadedness, Pain/Pressure in shoulder, Diarrhea(Persistent), Memory Changes Suddenly, Questions/Concerns, Weight gain consecutive days, Dizziness/Fainting, Nausea/Vomiting, Shortness of Breath, Weight gain over 2 pounds If questions or concerns contact your physician Or seek help at emergency department. Activity Activity as Tolerated: Yes Activity Instructions: Avoid Stress to Incision Driving Instructions: No Driving/Refer to Dr. Quinonez Discharge Diet: No Restrictions Diet After 24 Hours: Clear Liquid if Nauseous If Any Problems/Questions/Issu: Contact Your Physician, Go to Emergency Room Skin/Wound Care Infection Signs and Symptoms: Increased Redness, Foul Odor of Wound, Increased Drainage, Skin Itchy or Has a Rash, Increased Swelling, Temperature Above 101 F Bathing Instructions: Shower Stitches/Cassidy/Dermabond Dis: JEANNE Fuentes DO Jun 08, 2019 11:14 POS
[2019-06-08] MEDS ORDERED: ONDANSETRON 4 MG/2 ML (SDV) Z0FRAN IVP PRN (11:30)
[2019-06-08] MEDS ORDERED: HYDROmorphone 2 MG/ML VIAL (DILAUDID) IV ONE (11:30)
--- NOTE | 2019-06-08 11:48 | Diagnostic Imaging Report ---
EXAMINATION: Fluoroscopy at 1058 hours. INDICATION: Port placement. TECHNIQUE: Fluoroscopic assistance was provided for Dr. Banks. 6 seconds of fluoroscopy time was utilized. FINDINGS: A single spot film of the thorax was received. There is a Port-A-Cath in place on the right. The tip of the catheter overlies the midportion of the superior vena cava. IMPRESSION: Fluoroscopic assistance was provided for Dr. Banks. Dictated by: Dictated on workstation # [id number]
--- NOTE | 2019-06-08 17:01 | OPERATIVE REPORT ---
DATE OF SERVICE: PREOPERATIVE DIAGNOSES: 1. Venous insufficiency. 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 POSTOPERATIVE DIAGNOSES: 1. Venous insufficiency. 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 PROCEDURE: Port-A-Cath insertion. SURGEON: Jameson Banks DO RECREATION THERAPY AIDES TEACHER: Ken Horne MS3 SPECIMENS: None. BLOOD LOSS: Scant. FLUIDS: Per anesthesia. POSTOPERATIVE CONDITION: Stable. ANESTHESIA: IV sedation by MANAGER FINANCIAL REPORTING. 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 She will need chemotherapy, needs a Port-A-Cath placed. FINDINGS: The patient had a Port-A-Cath placed right anterior chest wall, right subclavian vein. PROCEDURE NOTE: After informed consent was obtained, the patient was brought to the operating room, placed on the operating table in supine position. She was sterilely prepped and draped in normal fashion. Local lidocaine was used to infiltrate the skin towards the clavicle as well as in the right anterior chest wall. Then, the patient placed slightly Trendelenburg. An 18-gauge fine needle was advanced under negative inspiration, cannulated the subclavian vein on first attempt. Good flash of blood, removed the syringe, placed a guidewire down the needle using Seldinger technique, it went in easily checked with fluoroscopy, it was in good position. I removed the needle and made a stab incision along the guidewire and I made an incision in right anterior chest wall with #11 blade. I had already previously infiltrated this area with local, carried the incision down through the skin and subcutaneous tissue, then deepened down to subcutaneous tissue with Bovie electrocautery as well as some blunt dissection created a pocket bluntly and then over the guidewire, placed a dilator using Seldinger technique, it went in easily and then tunneled from the stab incision into the pocket with a tunneler, removed the inner portion of the dilator sheath and the wire and then placed the catheter down the dilator sheath using the Seldinger technique, it went in easily, checked fluoroscopy, it was in good position. I removed the dilator sheath and then attached the catheter to the port and then accessed the port with a Goldberg needle, good flash of blood and easily flushed with saline, then aspirated good flush of blood and then flushed with 2 mL of heparin. I then sutured the port in with 3-0 Prolene suture and placed the port in the pocket. It went in easily, lay flat and it was very nice and at this point, then closed the incision, closing the subcutaneous tissue with 3-0 Vicryl 2 interrupted sutures and closed the skin with 4-0 undyed Monocryl 3 interrupted subcuticular stitches. Area was cleaned and dried. Dermabond placed as well as Band-Aids. The patient tolerated the procedure. Sponge, instrument and needle count correct at the end of the case. Job ID: [id number] DocumentID: [id number] Dictated Date: 06/08/2019 11:05:59 Mucker Operator Date: 06/08/2019 17:00:59 Dictated By: JAMESON BANKS DO
--- NOTE | 2019-06-09 07:04 | Anesthesia-General Post-Op ---
MAC Patient Condition Mental Status/LOC: Same as Preop Cardiovascular: Satisfactory Nausea/Vomiting: Absent Respiratory: Satisfactory Pain: Controlled Complications: Absent Post Op Complications Complications None Follow Up Care/Instructions Patient Instructions None needed. Anesthesiology Discharge Order Discharge Order Patient is doing well, no complaints, stable vital signs, no apparent adverse anesthesia problems. No complications reported per nursing. THOMAS TODD CRNA Jun 09, 2019 07:04 POS
== END 2019-06-08 12:35 | disposition home or self-care (01) ==
LOC: SDC 09:29
PROVIDERS: ATTEND Surgery
DX: C04.9 Malignant neoplasm of floor of mouth, unspecified (principal); I87.2 Venous insufficiency (chronic) (peripheral); J44.9 Chronic obstructive pulmonary disease, unspecified; I47.1 Supraventricular tachycardia; I73.9 Peripheral vascular disease, unspecified; I82.409 Acute embolism and thrombosis of unspecified deep veins of unspecified lower extremity; I48.92 Unspecified atrial flutter; I65.29 Occlusion and stenosis of unspecified carotid artery; E11.40 Type 2 diabetes mellitus with diabetic neuropathy, unspecified; E11.52 Type 2 diabetes mellitus with diabetic peripheral angiopathy with gangrene; D50.9 Iron deficiency anemia, unspecified; M06.9 Rheumatoid arthritis, unspecified; G47.36 Sleep related hypoventilation in conditions classified elsewhere; F41.9 Anxiety disorder, unspecified; F32.9 Major depressive disorder, single episode, unspecified; Z87.891 Personal history of nicotine dependence; Z79.899 Other long term (current) drug therapy; Z88.8 Allergy status to other drugs, medicaments and biological substances; Z88.1 Allergy status to other antibiotic agents; Z79.82 Long term (current) use of aspirin; Z89.439 Acquired absence of unspecified foot; Z82.49 Family history of ischemic heart disease and other diseases of the circulatory system; Z80.9 Family history of malignant neoplasm, unspecified
CPT/HCPCS: 87081

== ENCOUNTER 2019-07-05 13:04 | Outpatient (CLI) | payer MEDICARE, MEDICAID ==
[~2019-07-05] VITALS: Ht 160 cm; Wt 87.3 kg
[2019-07-05] MEDS ORDERED: CYCL5TAB PO (13:15)
== END 2019-07-05 13:27 | disposition home or self-care (01) ==
LOC: PREOP 13:04
PROVIDERS: ATTEND Surgery
DX: Z01.818 Encounter for other preprocedural examination (principal)

== ENCOUNTER 2019-07-12 11:16 | Outpatient (RCR) | payer MEDICAID, MEDICARE ==
[2019-06-20 14:01] LABS: BASOPHILS # (AUTO) 0.1 10^3/uL (0.0-0.1); BASOPHILS % (AUTO) 0 % (0-10); EOSINOPHILS # (AUTO) 0.6 10^3/uL (0.0-0.3); EOSINOPHILS % (AUTO) 4 % (0-10); HEMATOCRIT 41 % (35-52); HEMOGLOBIN 13.1 G/DL (11.5-16.0); LYMPHOCYTES # (AUTO) 5.2 X 10^3 (1.0-4.0); LYMPHOCYTES % (AUTO) 32 % (12-44); MEAN CORPUSCULAR HEMOGLOBIN 30 PG (25-34); MEAN CORPUSCULAR HGB CONC 32 G/DL (32-36); MEAN CORPUSCULAR VOLUME 96 FL (80-99); MEAN PLATELET VOLUME 9.6 FL (7.4-10.4); MONOCYTES # (AUTO) 1.2 X 10^3 (0.0-1.0); MONOCYTES % (AUTO) 8 % (0-12); NEUTROPHILS # (AUTO) 9.1 X 10^3 (1.8-7.8); NEUTROPHILS % (AUTO) 56 % (42-75); PLATELET COUNT 377 10^3/uL (130-400); RED CELL DISTRIBUTION WIDTH 12.9 % (10.0-14.5); WHITE BLOOD COUNT 16.1 10^3/uL (4.3-11.0)
[2019-06-20 14:19] LABS: ALANINE AMINOTRANSFERASE 11 U/L (0-55); ALBUMIN 3.8 GM/DL (3.2-4.5); ALKALINE PHOSPHATASE 66 U/L (40-136); BILIRUBIN,TOTAL 0.4 MG/DL (0.1-1.0); BUN/CREATININE RATIO 21; CALCIUM 9.5 MG/DL (8.5-10.1); CARBON DIOXIDE 27 MMOL/L (21-32); CHLORIDE 103 MMOL/L (98-107); CREATININE SERUM 0.81 MG/DL (0.60-1.30); GFR ESTIMATED > 60; GLUCOSE 113 MG/DL (70-105); POTASSIUM 4.5 MMOL/L (3.6-5.0); SODIUM 140 MMOL/L (135-145); TOTAL PROTEIN 7.6 GM/DL (6.4-8.2)
[2019-06-30 11:35] LABS: BASOPHILS # (AUTO) 0.1 10^3/uL (0.0-0.1); BASOPHILS % (AUTO) 1 % (0-10); EOSINOPHILS # (AUTO) 0.4 10^3/uL (0.0-0.3); EOSINOPHILS % (AUTO) 4 % (0-10); HEMATOCRIT 40 % (35-52); HEMOGLOBIN 12.9 G/DL (11.5-16.0); LYMPHOCYTES # (AUTO) 2.8 X 10^3 (1.0-4.0); LYMPHOCYTES % (AUTO) 25 % (12-44); MEAN CORPUSCULAR HEMOGLOBIN 30 PG (25-34); MEAN CORPUSCULAR HGB CONC 32 G/DL (32-36); MEAN CORPUSCULAR VOLUME 94 FL (80-99); MEAN PLATELET VOLUME 9.6 FL (7.4-10.4); MONOCYTES # (AUTO) 1.3 X 10^3 (0.0-1.0); MONOCYTES % (AUTO) 12 % (0-12); NEUTROPHILS # (AUTO) 6.3 X 10^3 (1.8-7.8); NEUTROPHILS % (AUTO) 58 % (42-75); PLATELET COUNT 351 10^3/uL (130-400); RED CELL DISTRIBUTION WIDTH 12.9 % (10.0-14.5); WHITE BLOOD COUNT 10.9 10^3/uL (4.3-11.0)
[2019-06-30 11:52] LABS: BUN/CREATININE RATIO 22; CALCIUM 9.1 MG/DL (8.5-10.1); CARBON DIOXIDE 24 MMOL/L (21-32); CHLORIDE 103 MMOL/L (98-107); CREATININE SERUM 0.77 MG/DL (0.60-1.30); GFR ESTIMATED > 60; GLUCOSE 123 MG/DL (70-105); MAGNESIUM 1.7 MG/DL (1.6-2.4); POTASSIUM 4.3 MMOL/L (3.6-5.0); SODIUM 139 MMOL/L (135-145)
[2019-07-07 11:39] LABS: BASOPHILS # (AUTO) 0.1 10^3/uL (0.0-0.1); BASOPHILS % (AUTO) 1 % (0-10); EOSINOPHILS # (AUTO) 0.3 10^3/uL (0.0-0.3); EOSINOPHILS % (AUTO) 3 % (0-10); HEMATOCRIT 38 % (35-52); HEMOGLOBIN 12.2 G/DL (11.5-16.0); LYMPHOCYTES # (AUTO) 2.4 X 10^3 (1.0-4.0); LYMPHOCYTES % (AUTO) 24 % (12-44); MEAN CORPUSCULAR HEMOGLOBIN 30 PG (25-34); MEAN CORPUSCULAR HGB CONC 32 G/DL (32-36); MEAN CORPUSCULAR VOLUME 94 FL (80-99); MEAN PLATELET VOLUME 9.9 FL (7.4-10.4); MONOCYTES % (AUTO) 10 % (0-12); NEUTROPHILS # (AUTO) 6.2 X 10^3 (1.8-7.8); NEUTROPHILS % (AUTO) 62 % (42-75); PLATELET COUNT 272 10^3/uL (130-400); RED CELL DISTRIBUTION WIDTH 12.8 % (10.0-14.5)
[2019-07-07 12:04] LABS: ALANINE AMINOTRANSFERASE 33 U/L (0-55); ALBUMIN 3.6 GM/DL (3.2-4.5); ALKALINE PHOSPHATASE 75 U/L (40-136); BILIRUBIN,TOTAL 0.5 MG/DL (0.1-1.0); BUN/CREATININE RATIO 18; CALCIUM 9.2 MG/DL (8.5-10.1); CARBON DIOXIDE 26 MMOL/L (21-32); CHLORIDE 105 MMOL/L (98-107); CREATININE SERUM 0.79 MG/DL (0.60-1.30); GFR ESTIMATED > 60; GLUCOSE 137 MG/DL (70-105); MAGNESIUM 1.6 MG/DL (1.6-2.4); POTASSIUM 4.2 MMOL/L (3.6-5.0); SODIUM 140 MMOL/L (135-145); TOTAL PROTEIN 6.8 GM/DL (6.4-8.2)
[~2019-07-12] VITALS: Ht 160 cm; Wt 86.6 kg
[~2019-07-12 11:16] MED LIST changes: +CISplatin 60 MG, MANNITOL 25% INJ (CANCER CTR) 12.5 GM, MAGNESIUM SULFATE (CANCER CTR) ... IV SCH; +FOSAPREPITANT DIMEGLUMINE 150 MG in NS (IVPB) CANCER CENTER ONLY 150 ML IV SCH; +NS IV 1000 ML (CANCER CTR) IV SCH; +PALONOSETRON HCL 0.25 MG, DEXAMETHASONE INJECTION 10 MG in NS (IVPB) CANCER CENTER 50 ML IV SCH
[2019-07-14 11:15] LABS: BASOPHILS % (AUTO) 1 % (0-10); EOSINOPHILS # (AUTO) 0.3 10^3/uL (0.0-0.3); EOSINOPHILS % (AUTO) 4 % (0-10); HEMATOCRIT 35 % (35-52); HEMOGLOBIN 11.3 G/DL (11.5-16.0); LYMPHOCYTES # (AUTO) 1.8 X 10^3 (1.0-4.0); LYMPHOCYTES % (AUTO) 21 % (12-44); MEAN CORPUSCULAR HEMOGLOBIN 31 PG (25-34); MEAN CORPUSCULAR HGB CONC 33 G/DL (32-36); MEAN CORPUSCULAR VOLUME 95 FL (80-99); MEAN PLATELET VOLUME 9.3 FL (7.4-10.4); MONOCYTES # (AUTO) 1.2 X 10^3 (0.0-1.0); MONOCYTES % (AUTO) 14 % (0-12); NEUTROPHILS % (AUTO) 60 % (42-75); PLATELET COUNT 204 10^3/uL (130-400); RED CELL DISTRIBUTION WIDTH 12.8 % (10.0-14.5); WHITE BLOOD COUNT 8.3 10^3/uL (4.3-11.0)
[2019-07-14 11:33] LABS: ALANINE AMINOTRANSFERASE 20 U/L (0-55); ALBUMIN 3.5 GM/DL (3.2-4.5); ALKALINE PHOSPHATASE 80 U/L (40-136); BILIRUBIN,TOTAL 0.6 MG/DL (0.1-1.0); BUN/CREATININE RATIO 18; CALCIUM 8.9 MG/DL (8.5-10.1); CARBON DIOXIDE 26 MMOL/L (21-32); CHLORIDE 101 MMOL/L (98-107); CREATININE SERUM 0.68 MG/DL (0.60-1.30); GFR ESTIMATED > 60; GLUCOSE 97 MG/DL (70-105); MAGNESIUM 1.5 MG/DL (1.6-2.4); POTASSIUM 4.1 MMOL/L (3.6-5.0); SODIUM 139 MMOL/L (135-145); TOTAL PROTEIN 6.7 GM/DL (6.4-8.2)
== END 2019-07-14 10:28 | disposition home or self-care (01) ==
LOC: ONC 11:16
PROVIDERS: ATTEND Internal Medicine Hematology & Oncology
DX: Z51.11 Encounter for antineoplastic chemotherapy (principal); Z51.0 Encounter for antineoplastic radiation therapy; C14.8 Malignant neoplasm of overlapping sites of lip, oral cavity and pharynx
CPT/HCPCS: 36591; 77290; 77300; 77301; 77334; 77336; 77338; 77386; 77470; 80048; 80053; 83735; 85025; 96367; 96375; 96413; 99214

== ENCOUNTER 2019-08-01 08:51 | Emergency (ER) | payer MEDICARE, MEDICAID ==
[~2019-08-01] VITALS: Ht 160 cm; Wt 90.7 kg
[~2019-08-01 08:51] MED LIST changes: -CISplatin 60 MG, MANNITOL 25% INJ (CANCER CTR) 12.5 GM, MAGNESIUM SULFATE (CANCER CTR) ... IV SCH; -FOSAPREPITANT DIMEGLUMINE 150 MG in NS (IVPB) CANCER CENTER ONLY 150 ML IV SCH; -NS IV 1000 ML (CANCER CTR) IV SCH; +OMEP-280 PO; -OMEP20CA13 PO; -PALONOSETRON HCL 0.25 MG, DEXAMETHASONE INJECTION 10 MG in NS (IVPB) CANCER CENTER 50 ML IV SCH; -RANI-515 PO; +RANI-609 PO
--- NOTE | 2019-08-01 09:13 | NUR ---
Called pt to the back; pt in restroom
[2019-08-01 10:10] LABS: BASOPHILS % (AUTO) 0 % (0-10); EOSINOPHILS % (AUTO) 0 % (0-10); HEMATOCRIT 30 % (35-52); HEMOGLOBIN 9.7 G/DL (11.5-16.0); LYMPHOCYTES # (AUTO) 0.3 X 10^3 (1.0-4.0); LYMPHOCYTES % (AUTO) 13 % (12-44); MEAN CORPUSCULAR HEMOGLOBIN 31 PG (25-34); MEAN CORPUSCULAR HGB CONC 33 G/DL (32-36); MEAN CORPUSCULAR VOLUME 95 FL (80-99); MONOCYTES # (AUTO) 0.3 X 10^3 (0.0-1.0); MONOCYTES % (AUTO) 11 % (0-12); NEUTROPHILS % (AUTO) 76 % (42-75); PLATELET COUNT 151 10^3/uL (130-400); RED CELL DISTRIBUTION WIDTH 13.5 % (10.0-14.5); WHITE BLOOD COUNT 2.7 10^3/uL (4.3-11.0)
--- NOTE | 2019-08-01 10:10 | ED General ---
General Chief Complaint: Cough/Cold/Flu Symptoms Stated Complaint: FEEDING TUBE ISSUES Nursing Triage Note: Pt to ED with multiple complaints. Daughter reports pt is currently undergoing chemo and radiation with Dr. Lawson for head and neck cancer. Daughter reports pt has had productive cough with thick yellow/brown mucous for two weeks. Daughter also reports feeding tube issues including not being able to "administer normal amount, and gagging." Nursing Sepsis Screen: No Definite Risk Source of Information: Patient Exam Limitations: No Limitations History of Present Illness Date Seen by Provider: Aug 01, 2019 Time Seen by Provider: 10:01 Initial Comments This 69-year-old woman presents to the emergency room accompanied by her daughter with concerns about tube feeding intolerance with regurgitation, cough 2 weeks, and temperature up to 100. She is being treated for throat cancer by Charis Caballero, and Jocelyn. She is still producing bowel movements. Daughter states she does not believe she is getting enough fluid and nutritional intake due to decreased feeds. Feeds been decreased due to the regurgitation over the last 3 days. Allergies and Home Medications Allergies Coded Allergies: ceftriaxone (Verified Allergy, Severe, DIFFICULTY BREATING, 07/05/19) levofloxacin (Verified Allergy, Severe, C-DIFF, 07/05/19) Home Medications Albuterol Sulfate 2.5 Mg/3 Ml Vial.neb, 2.5 MG NEB Q4H PRN for SHORTNESS OF BREATH, (Reported) Aspirin 81 Mg Tablet.dr, 81 MG PO HS, (Reported) Budesonide/Formoterol Fumarate 10.2 Gm Hfa.aer.ad, 2 PUFF PO BID, (Reported) Cetirizine HCl 10 Mg Tablet, 10 MG PO DAILY, (Reported) Cyclobenzaprine HCl 5 Mg Tablet, 5 MG PO PRN, (Reported) Doxycycline Hyclate 100 Mg Tablet, 100 MG PO BID Prescribed by: BALJIT WAN on 08/01/19 1341 Etanercept 50 Mg/1 Ml Syringe, 50 MG INJ WEEK, (Reported) Gabapentin 300 Mg Capsule, 300 MG PO BID, (Reported) Hydrocodone/Acetaminophen 1 Each Tablet, 1 TAB PO BID PRN for PAIN-MODERATE, (Reported) L.acidoph & Paracasei,B.lactis 1 Each Capsule, 1 CAP PO DAILY, (Reported) Montelukast Sodium 10 Mg Tablet, 10 MG PO HS, (Reported) Oseltamivir Phosphate 6 Mg/1 Ml Susp.recon, 75 MG PO BID Prescribed by: BALJIT WAN on 08/01/19 1341 Pravastatin Sodium 20 Mg Tablet, 20 MG PO HS, (Reported) Sertraline HCl 50 Mg Tablet, 50 MG PO DAILY, (Reported) Tiotropium [place] 4 Gm Mist.inhal, 2.5 MCG PO DAILY, (Reported) Zolpidem Tartrate 10 Mg Tablet, 10 MG PO HS, (Reported) Patient Home Medication List Home Medication List Reviewed: Yes Review of Systems Review of Systems Constitutional: see HPI EENTM: see HPI Respiratory: see HPI Cardiovascular: no symptoms reported Gastrointestinal: see HPI Genitourinary: no symptoms reported Musculoskeletal: no symptoms reported Skin: no symptoms reported Psychiatric/Neurological: No Symptoms Reported Hematologic/Lymphatic: No Symptoms Reported Immunological/Allergic: no symptoms reported Past Yvtjdwv-Nuisgx-Vnmuug Hx Past Med/Social Hx: Reviewed Nursing Past Med/Soc Hx Patient Social History Alcohol Use: Denies Use Recreational Drug Use: No Type Used: Cigarettes Former Smoker, Quit: Jul 13, 2014 2nd Hand Smoke Exposure: No Recent Foreign Travel: No Contact w/Someone Who Travel: No Recent Infectious Disease Expo: No Recent Hopitalizations: Yes (APR-CANCER ON NECK) Immunizations Up To Date Tetanus Booster (TDap): Unknown PED Vaccines UTD: Yes Date of Pneumonia Vaccine: Aug 05, 2013 Date of Influenza Vaccine: Apr 12, 2018 Seasonal Allergies Seasonal Allergies: Yes Past Medical History Surgeries: Yes (heart ablation, mouth cancer, feeding tube,peripheral stents) Joint Replacement, Orthopedic, Vascular Surgery Respiratory: Yes (O2 3.5L NC AT NIGHT AND PRN) COPD, Emphysema Currently Using CPAP: No Currently Using BIPAP: No Cardiac: Yes (CAROTID DISEASE--COMPLETE OCCLUSION OF LEFT CAROTID) High Cholesterol, Peripheral Vascular Neurological: Yes (DYSPHAGIA, DYSARTHRIA; RIGHT SIDE WEAKNESS--POST CVA) Dementia, Stroke Reproductive Disorders: No Female 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 ) Arthritis, Rheumatoid Arthritis Endocrine: No HEENT: Yes (GLASSES) Dysphagia, Tinnitis Loss of Vision: Bilateral Hearing Impairment: Denies Cancer: Yes Oral Did You Recieve Any Treatments: Yes What Type of Treatment Did You: Chemotherapy, Radiation, Surgical Intervention Psychosocial: Yes Sleep Difficulties, Anxiety, Depression Integumentary: No Blood Disorders: No Adverse Reaction/Blood Tranf: No (N/A) Family Medical History Cancer 09 SISTER Family history: Arthritis 09 BROTHER 09 SISTER Family history: Cardiovascular disease 09 SISTER Family history: Thyroid disorder 09 SISTER Malignant neoplasm of lung 09 SISTER Heart Disease Physical Exam Vital Signs Vital Signs - First Documented 08/01/19 09:17 O2 Flow Rate 2.00 Capillary Refill : Less Than 3 Seconds Height, Weight, BMI Height: 5'2.00" Weight: 180lbs. 0.0oz. 81.474616rc; 35.00 BMI Method:Actual General Appearance: No Apparent Distress, WD/WN HEENT: PERRL/EOMI, Normal ENT Inspection Neck: Normal Inspection Respiratory: Lungs Clear, Normal Breath Sounds, No Accessory Muscle Use, No Respiratory Distress Cardiovascular: Regular Rate, Rhythm, No Edema, No Murmur Gastrointestinal: Normal Bowel Sounds, Non Tender, Soft, Other (feeding tube in place with no signs of infection or inflammation. 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 Skin: Normal Color, Warm/Dry Focused Exam Lactate Level Lactic Acid Level Progress/Results/Core Measures Suspected Sepsis Recent Fever Within 48 Hours: Yes Infection Criteria Present: Suspected New Infection New/Unexplained Altered Menta: No Sepsis Screen: No Definite Risk SIRS Temperature: Pulse: 80 Respiratory Rate: 18 Blood Pressure 150 /70 Mean: 96 Results/Orders Lab Results Micro Results My Orders Orders - BALJIT BOLANOS MD Iv Infusion <= First Hr Ed (08/01/19 ) Medications Given in ED Vital Signs/I&O Capillary Refill : Less Than 3 Seconds Blood Pressure Mean: 96 Progress Note : Progress Note Feeding tube was evaluated. A flushes and aspirates without difficulty and without pain. Workup revealed evidence of pneumonitis on chest x-ray and a positive influenza screen. I discussed treatment options with the patient and her daughter. Unfortunately, Tiff Benitez is on admission diversion. We discussed transfer versus careful observation at home. They elected careful observation at home. A dose of meropenem was given for treatment of possible pneumonia. Zofran was given for nausea. We discussed the risks and benefits of Tamiflu. Although increase in GI symptoms with Tamiflu may be an issue, patient is also a high risk with her cancer history, age, etc. I discussed the case with Dr. Monaco. Ultimately, we elected to trial Tamiflu. She was also placed on doxycycline for possible pneumonia. She already has a Zofran prescription at home that she has not been using. Diagnostic Imaging Diagonstic Imaging: Xray Plain Films/CT/US/NM/MRI: abdomen, pelvis Comments KUB and upright abdominal films viewed by me and report reviewed. See report below: NAME: ALIYAH ROLLINS [facility] REC#: [id number] PT STATUS: REG ER : 1950 PHYSICIAN: BALJIT BOLANOS MD ADMIT DATE: 08/01/19/ER Draft Date of Exam:08/01/19 ABDOMEN, FLAT UPRIGHT/DECUB INDICATION: Cough, difficulty with feeding tube. COMPARISON: 03/18/2018. TECHNIQUE: Two radiographs of the abdomen are dated 08/01/2019. FINDINGS: A recorder is present overlying the left lower chest/left upper abdomen. A percutaneous gastrostomy catheter is present with the balloon overlying the left upper abdomen. Vascular stent grafts are seen overlying the mid abdomen. Right total hip arthroplasty is again identified. The visualized lung bases are clear. Nonobstructed bowel gas pattern with a small amount of gas noted within the bowel. No differential air/fluid levels. No free air. Multiple phleboliths within the lower pelvis are again noted. Calcifications are again identified within the upper abdomen bilaterally, appearing similar to the prior examination. These likely relate to vascular calcifications. [place] left curvature of the spine. Scattered osseous degenerative changes. No acute osseous abnormality. IMPRESSION: Percutaneous gastrostomy catheter is again identified projecting overlying the upper abdomen to the left of midline. If exact positioning of the percutaneous gastrostomy catheter is desired, then additional imaging after instillation of contrast through the percutaneous gastrostomy catheter would be recommended. Additional postsurgical and chronic findings as described above without new acute abnormality. Dictated on workstation # [id number] Dict: 08/01/19 1056 Trans: 08/01/19 1103 [id number] Interpreted by: ALINA GRAY MD Departure Impression Primary Impression: Acute pneumonitis Additional Impressions: Influenza B Leukopenia Qualified Codes: D72.819 - Decreased white blood cell count, unspecified Immunocompromised patient Nausea and vomiting Qualified Codes: R11.2 - Nausea with vomiting, unspecified Disposition: 01 HOME, SELF-CARE Condition: Improved Departure-Patient Inst. Decision time for Depature: 13:36 Referrals: [facility] (PCP) Primary Care Physician Patient Instructions: Community-Acquired Pneumonia in Adults, Flu, Adult (DC) Add. Discharge Instructions: Encourage plenty of clear liquids. You may give additional small quantity clear liquid feeds between meals. Use Zofran about 15 minutes before doing meal fee ds. Complete the antibiotics as prescribed. Try Tamiflu. It may help reduce the intensity and duration of the flu symptoms. You may stop Tamiflu if it is not well tolerated. Return to the emergency room if you have worsening conditions despite treatment. Please call Dr. Monaco with an update on Thursday. Please discuss the feeding tube issues with Dr. Eason and therefore of the cristiana mendez your current condition including presence of flu. Obtain a follow-up appointment time. All discharge instructions reviewed with patient and/or family. Voiced understanding. Scripts Doxycycline Hyclate (Doxycycline Hyclate) 100 Mg Tablet 100 MG PO BID, #20 TAB 0 Refills Prov: BALJIT BOLANOS MD 08/01/19 Oseltamivir Phosphate (Tamiflu) 6 Mg/1 Ml Susp.recon 75 MG PO BID for 5 Days, #125 ML Prov: BALJIT BOLANOS MD 08/01/19 Copy Copies To 1: MARCUS MONACO MD Copies To 2: JEANNE EASON JOSHUA T MD Aug 01, 2019 10:10
[2019-08-01 10:23] LABS: ALANINE AMINOTRANSFERASE 24 U/L (0-55); ALBUMIN 3.7 GM/DL (3.2-4.5); ALKALINE PHOSPHATASE 79 U/L (40-136); BUN/CREATININE RATIO 28; CALCIUM 9.3 MG/DL (8.5-10.1); CARBON DIOXIDE 29 MMOL/L (21-32); CHLORIDE 101 MMOL/L (98-107); CREATININE SERUM 0.64 MG/DL (0.60-1.30); GFR ESTIMATED > 60; GLUCOSE 144 MG/DL (70-105); POTASSIUM 3.8 MMOL/L (3.6-5.0); SODIUM 139 MMOL/L (135-145); TOTAL PROTEIN 6.9 GM/DL (6.4-8.2)
--- NOTE | 2019-08-01 11:04 | Diagnostic Imaging Report ---
INDICATION: Cough, difficulty with feeding tube. COMPARISON: 03/18/2018. TECHNIQUE: Two radiographs of the abdomen are dated 08/01/2019. FINDINGS: A recorder is present overlying the left lower chest/left upper abdomen. A percutaneous gastrostomy catheter is present with the balloon overlying the left upper abdomen. Vascular stent grafts are seen overlying the mid abdomen. Right total hip arthroplasty is again identified. The visualized lung bases are clear. Nonobstructed bowel gas pattern with a small amount of gas noted within the bowel. No differential air/fluid levels. No free air. Multiple phleboliths within the lower pelvis are again noted. Calcifications are again identified within the upper abdomen bilaterally, appearing similar to the prior examination. These likely relate to vascular calcifications. [place] left curvature of the spine. Scattered osseous degenerative changes. No acute osseous abnormality. IMPRESSION: Percutaneous gastrostomy catheter is again identified projecting overlying the upper abdomen to the left of midline. If exact positioning of the percutaneous gastrostomy catheter is desired, then additional imaging after instillation of contrast through the percutaneous gastrostomy catheter would be recommended. Additional postsurgical and chronic findings as described above without new acute abnormality. Dictated by: Dictated on workstation # [id number]
--- NOTE | 2019-08-01 11:13 | Diagnostic Imaging Report ---
INDICATION: Productive cough. TECHNIQUE/COMPARISON: PA and lateral views of the chest were obtained with comparison made to the study of 10/30/2018. FINDINGS: The overall heart size and pulmonary vascularity are within normal limits. The coarse infiltrate has increased in the right upper lobe. There is no evidence of pneumothorax. There is mild blunting of the left costophrenic sulcus which may be due to a small amount of pleural fluid or pleural thickening. A right anterior chest wall port has been placed and there is no evidence of pneumothorax. IMPRESSION: Increasing coarse infiltrate in the right upper lobe likely represents pneumonitis or atypical pneumonia. There is a small amount of left pleural fluid versus pleural thickening. Dictated by: Dictated on workstation # [id number]
[2019-08-01] MEDS ORDERED: MEROPENEM 1,000 MG in WATER (STERILE) FOR INJECTION 20 ML IV ONE (12:00)
[2019-08-01 12:07] LABS: INR 0.9 (0.8-1.4)
[2019-08-01 12:48] LABS: BILIRUBIN,URINE NEGATIVE (NEGATIVE); CLARITY,URINE SL CLOUDY; COLOR,URINE DARK YELLOW; GLUCOSE, URINE (UA) NEGATIVE (NEGATIVE); KETONES,URINE NEGATIVE (NEGATIVE); LEUKOCYTE ESTERASE ,URINE NEGATIVE (NEGATIVE); NITRITE,URINE NEGATIVE (NEGATIVE); PH,URINE 7.5 (5-9); PROTEIN,URINE NEGATIVE (NEGATIVE)
[2019-08-01 12:55] LABS: BACTERIA,URINE TRACE /HPF; RBC,URINE RARE /HPF; WBC,URINE RARE /HPF
[2019-08-01] MEDS ORDERED: NS IV 1000 ML 1,000 ML IV SCH (12:59)
[2019-08-01] MEDS ORDERED: DOXY100T2 PO (13:41)
[2019-08-01] MEDS ORDERED: OSEL6SUS3 PO (13:41)
[2019-08-01] MEDS ORDERED: ONDANSETRON 4 MG/2 ML (SDV) Z0FRAN ONE (13:46)
[2019-08-01] MEDS ORDERED: ONDANSETRON 4 MG/2 ML (SDV) Z0FRAN IVP ONE (14:00)
[2019-08-01 14:02] VITALS: BP 152/72
== END 2019-08-01 14:04 | disposition home or self-care (01) ==
LOC: EDUNIT# 08:51 → ER 08:52
DX: J10.08 Influenza due to other identified influenza virus with other specified pneumonia (principal); J18.9 Pneumonia, unspecified organism; D72.819 Decreased white blood cell count, unspecified; D84.9 Immunodeficiency, unspecified; J43.9 Emphysema, unspecified; F41.9 Anxiety disorder, unspecified; F32.9 Major depressive disorder, single episode, unspecified; E78.00 Pure hypercholesterolemia, unspecified; F03.90 Unspecified dementia, unspecified severity, without behavioral disturbance, psychotic disturbance, mood disturbance, and anxiety; M06.9 Rheumatoid arthritis, unspecified; Z86.73 Personal history of transient ischemic attack (TIA), and cerebral infarction without residual deficits; Z99.81 Dependence on supplemental oxygen; Z88.1 Allergy status to other antibiotic agents; Z79.82 Long term (current) use of aspirin; Z87.891 Personal history of nicotine dependence; Z85.818 Personal history of malignant neoplasm of other sites of lip, oral cavity, and pharynx; Z82.49 Family history of ischemic heart disease and other diseases of the circulatory system; Z80.1 Family history of malignant neoplasm of trachea, bronchus and lung
CPT/HCPCS: 36415; 71046; 74019; 80053; 81000; 83605; 85025; 85610; 85730; 86141; 87040; 87070; 87077; 87088; 87185; 87205; 87804; 96361; 96365; 96375

== ENCOUNTER → 2019-09-05 | Outpatient (CLI) | payer MEDICARE, MEDICAID ==
[~2019-09-05] MED LIST changes: +APIX5TAB PEG; +ASPI-999 PEG; +BUDE10.2 INH; -BUDE10.2 PO; +CATHETER FLUSH 10 ML SYR IV PRN; +CYCL5TAB PEG; +FLUC100T PEG; +GABA250S5 PEG; +HOLD METFORMIN - RECEIVED CONTRAST 20 ML VIAL IV SCH; +HYDR118S10 PEG; +IOHEXOL 350 MG/ML 100 ML (OMNIPAQUE 350) VIAL IV ONE; +L.AC1CAP6 PEG; -L.AC1CAP6 PO; -MONT10TA24 PO; +MONT10TA26 PO; +MONT5TAB16 PEG; +NS 100 ML (IVPB) BAG IV ONE; -OMEP-280 PO; +OMEP20CA18 PO; +ONDA8TAB13 PEG; +OSEL6SUS3 PO; +OXYC5SOL19 GT; +SERT20OR6 PEG; +SERT50TA9 GT; -SERT50TA9 PO; +TIOT4MIS2 INH; -TIOT4MIS2 PO; +ZOLP5TAB7 PEG
--- NOTE | 2019-09-05 13:36 | Diagnostic Imaging Report ---
PROCEDURE: CT neck soft tissue with contrast. CT chest with contrast. TECHNIQUE: Multiple contiguous axial images were obtained through the neck and chest after the administration of contrast. Sagittal and coronal reformats were obtained and reviewed. All CT scans use one or more of the following dose optimizing techniques: automated exposure control, MA and/or KvP adjustment based on a patient size and exam type, or iterative reconstruction. INDICATION: Right-sided neck pain. Difficulty swallowing. Shortness of breath. History of oral cancer. COMPARISON: 08/16/2019. 04/15/2019. Findings: CT Neck: There has been interval surgical removal of the enhancing and enlarged partially necrotic lymph node previously seen in the right level 4 station. Prior bilateral neck dissection changes are again seen. No new pathologically enlarged lymphadenopathy is seen in the neck. The visualized intracranial contents demonstrate no evidence of pathologic intracranial enhancement or intracranial mass effect. Visualized orbital contents are unremarkable. The visualized paranasal sinuses are clear. Bilateral mastoid effusions are present. The posterior nasopharynx and oropharynx demonstrate appropriate symmetry. No evidence of recurrent mass. There is no displacement of the parapharyngeal fat planes. There is no abnormal process evident within the prevertebral or retropharyngeal space. There is no evidence of abnormal thickening of the epiglottis or aryepiglottic folds. The vocal folds appear symmetric. The parotid and thyroid gland are unremarkable. The submandibular glands are absent. No focal inflammatory changes are demonstrated. No soft tissue mass or fluid collection demonstrated. The vascular structures the neck demonstrate no evidence of high-grade stenosis on this nondedicated exam. There are mild degenerative features within the cervical spine without CT evidence of an acute or suspicious osseous abnormality. There is straightening of the cervical spine. CT Chest: The heart size is within normal limits. No pericardial effusion is present. A right port is visualized with the tip in the low SVC. There is calcified aortic and coronary atherosclerotic plaque without aneurysm. This exam is not optimized for evaluation of the subsegmental pulmonary arteries. No large pulmonary embolism is seen in the main pulmonary artery trunk or right and left pulmonary arteries. No evidence of right heart strain. There is no mediastinal, hilar, or axillary lymphadenopathy. There has been interval improvement in patchy consolidative opacities scattered throughout the lungs with a small amount of residual focal opacities remaining. Discoid atelectasis is seen in the right midlung. Scattered areas of subsegmental atelectasis are seen. No pulmonary masses are seen. No central endobronchial obstructing lesions are identified. There is no pleural effusion or pneumothorax. The osseous structures demonstrate no acute abnormalities. Generalized osteopenia is noted. Limited views of the upper abdominal structures demonstrate no acute abnormalities. Cholelithiasis is noted. Both adrenal glands are unremarkable. Impression: 1. Interval resection of the metastatic lymph node in the right level 4 station. No new pathologically enlarged lymphadenopathy is seen in the neck or chest. 2. No evidence of mass recurrence in the oral cavity. No masses or fluid collections in the neck. 3. Interval improvement in patchy consolidative opacities scattered throughout the lungs with a small amount of residual opacities remaining. This is favored to represent improving infectious or inflammatory process. Given the history of oral cancer, follow-up in 3-6 months is recommended to ensure the remaining focal opacities are resolved and do not represent underlying metastatic lesions. 4. Cholelithiasis. 5. No large pulmonary emboli are visualized in the main pulmonary artery trunk or right and left pulmonary arteries. The subsegmental pulmonary arteries of the lower lobes are not adequately evaluated on this exam. Dictated by: Dictated on workstation # [id number]
== END ==
LOC: RAD 10:03
PROVIDERS: ATTEND Internal Medicine Hematology & Oncology
DX: C04.1 Malignant neoplasm of lateral floor of mouth (principal); K80.20 Calculus of gallbladder without cholecystitis without obstruction
CPT/HCPCS: 70491; 71260

== ENCOUNTER 2019-09-16 11:59 | Outpatient (RCR) | payer MEDICARE, MEDICAID ==
[2019-07-21 11:27] LABS: BASOPHILS % (AUTO) 1 % (0-10); EOSINOPHILS # (AUTO) 0.3 10^3/uL (0.0-0.3); EOSINOPHILS % (AUTO) 5 % (0-10); HEMATOCRIT 35 % (35-52); HEMOGLOBIN 11.4 G/DL (11.5-16.0); LYMPHOCYTES # (AUTO) 1.6 X 10^3 (1.0-4.0); LYMPHOCYTES % (AUTO) 27 % (12-44); MEAN CORPUSCULAR HEMOGLOBIN 31 PG (25-34); MEAN CORPUSCULAR HGB CONC 32 G/DL (32-36); MEAN CORPUSCULAR VOLUME 94 FL (80-99); MEAN PLATELET VOLUME 9.4 FL (7.4-10.4); MONOCYTES # (AUTO) 0.6 X 10^3 (0.0-1.0); MONOCYTES % (AUTO) 10 % (0-12); NEUTROPHILS # (AUTO) 3.3 X 10^3 (1.8-7.8); NEUTROPHILS % (AUTO) 57 % (42-75); PLATELET COUNT 179 10^3/uL (130-400); RED CELL DISTRIBUTION WIDTH 13.2 % (10.0-14.5); WHITE BLOOD COUNT 5.8 10^3/uL (4.3-11.0)
[2019-07-21 11:48] LABS: BUN/CREATININE RATIO 20; CALCIUM 9.3 MG/DL (8.5-10.1); CARBON DIOXIDE 27 MMOL/L (21-32); CHLORIDE 102 MMOL/L (98-107); GFR ESTIMATED > 60; GLUCOSE 119 MG/DL (70-105); SODIUM 141 MMOL/L (135-145)
[2019-07-28 12:26] LABS: BASOPHILS % (AUTO) 0 % (0-10); EOSINOPHILS # (AUTO) 0.2 10^3/uL (0.0-0.3); EOSINOPHILS % (AUTO) 4 % (0-10); HEMATOCRIT 31 % (35-52); HEMOGLOBIN 10.1 G/DL (11.5-16.0); LYMPHOCYTES # (AUTO) 1.6 X 10^3 (1.0-4.0); LYMPHOCYTES % (AUTO) 35 % (12-44); MEAN CORPUSCULAR HEMOGLOBIN 31 PG (25-34); MEAN CORPUSCULAR HGB CONC 33 G/DL (32-36); MEAN CORPUSCULAR VOLUME 95 FL (80-99); MEAN PLATELET VOLUME 9.6 FL (7.4-10.4); MONOCYTES # (AUTO) 0.5 X 10^3 (0.0-1.0); MONOCYTES % (AUTO) 10 % (0-12); NEUTROPHILS # (AUTO) 2.2 X 10^3 (1.8-7.8); NEUTROPHILS % (AUTO) 50 % (42-75); PLATELET COUNT 159 10^3/uL (130-400); RED CELL DISTRIBUTION WIDTH 13.4 % (10.0-14.5); WHITE BLOOD COUNT 4.5 10^3/uL (4.3-11.0)
[2019-07-28 12:43] LABS: BUN/CREATININE RATIO 25; CARBON DIOXIDE 27 MMOL/L (21-32); CHLORIDE 100 MMOL/L (98-107); CREATININE SERUM 0.67 MG/DL (0.60-1.30); GFR ESTIMATED > 60; GLUCOSE 93 MG/DL (70-105); MAGNESIUM 1.6 MG/DL (1.6-2.4); POTASSIUM 4.6 MMOL/L (3.6-5.0); SODIUM 136 MMOL/L (135-145)
[2019-08-11 11:14] LABS: BASOPHILS % (AUTO) 0 % (0-10); EOSINOPHILS # (AUTO) 0.1 10^3/uL (0.0-0.3); EOSINOPHILS % (AUTO) 2 % (0-10); HEMATOCRIT 28 % (35-52); HEMOGLOBIN 8.8 G/DL (11.5-16.0); LYMPHOCYTES # (AUTO) 1.3 X 10^3 (1.0-4.0); LYMPHOCYTES % (AUTO) 26 % (12-44); MEAN CORPUSCULAR HEMOGLOBIN 31 PG (25-34); MEAN CORPUSCULAR HGB CONC 32 G/DL (32-36); MEAN CORPUSCULAR VOLUME 98 FL (80-99); MEAN PLATELET VOLUME 10.3 FL (7.4-10.4); MONOCYTES # (AUTO) 0.7 X 10^3 (0.0-1.0); MONOCYTES % (AUTO) 15 % (0-12); NEUTROPHILS # (AUTO) 2.7 X 10^3 (1.8-7.8); NEUTROPHILS % (AUTO) 57 % (42-75); PLATELET COUNT 293 10^3/uL (130-400); RED CELL DISTRIBUTION WIDTH 15.6 % (10.0-14.5); WHITE BLOOD COUNT 4.8 10^3/uL (4.3-11.0)
[2019-08-11 11:35] LABS: BUN/CREATININE RATIO 24; CALCIUM 9.5 MG/DL (8.5-10.1); CARBON DIOXIDE 26 MMOL/L (21-32); CHLORIDE 103 MMOL/L (98-107); CREATININE SERUM 0.66 MG/DL (0.60-1.30); GFR ESTIMATED > 60; GLUCOSE 117 MG/DL (70-105); POTASSIUM 4.1 MMOL/L (3.6-5.0); SODIUM 140 MMOL/L (135-145)
[2019-09-05 10:32] LABS: BASOPHILS % (AUTO) 0 % (0-10); EOSINOPHILS # (AUTO) 0.4 10^3/uL (0.0-0.3); EOSINOPHILS % (AUTO) 4 % (0-10); HEMATOCRIT 33 % (35-52); HEMOGLOBIN 10.7 G/DL (11.5-16.0); LYMPHOCYTES # (AUTO) 1.7 X 10^3 (1.0-4.0); LYMPHOCYTES % (AUTO) 20 % (12-44); MEAN CORPUSCULAR HEMOGLOBIN 32 PG (25-34); MEAN CORPUSCULAR HGB CONC 32 G/DL (32-36); MEAN CORPUSCULAR VOLUME 100 FL (80-99); MEAN PLATELET VOLUME 9.2 FL (7.4-10.4); MONOCYTES # (AUTO) 0.9 X 10^3 (0.0-1.0); MONOCYTES % (AUTO) 11 % (0-12); NEUTROPHILS # (AUTO) 5.3 X 10^3 (1.8-7.8); NEUTROPHILS % (AUTO) 64 % (42-75); PLATELET COUNT 214 10^3/uL (130-400); RED CELL DISTRIBUTION WIDTH 18.7 % (10.0-14.5); WHITE BLOOD COUNT 8.3 10^3/uL (4.3-11.0)
[2019-09-05 10:49] LABS: ALANINE AMINOTRANSFERASE 36 U/L (0-55); ALBUMIN 3.7 GM/DL (3.2-4.5); ALKALINE PHOSPHATASE 111 U/L (40-136); BILIRUBIN,TOTAL 0.5 MG/DL (0.1-1.0); BUN/CREATININE RATIO 20; CALCIUM 9.9 MG/DL (8.5-10.1); CARBON DIOXIDE 30 MMOL/L (21-32); CHLORIDE 101 MMOL/L (98-107); CREATININE SERUM 0.75 MG/DL (0.60-1.30); GFR ESTIMATED > 60; GLUCOSE 93 MG/DL (70-105); POTASSIUM 4.4 MMOL/L (3.6-5.0); SODIUM 141 MMOL/L (135-145); TOTAL PROTEIN 7.4 GM/DL (6.4-8.2)
[~2019-09-16] VITALS: Ht 160 cm; Wt 83.0 kg
[~2019-09-16 11:59] MED LIST changes: +ALTEPLASE 2 MG (CATHFLO) CANCER CENTER IV ONE; -CATHETER FLUSH 10 ML SYR IV PRN; +CISplatin 60 MG, MANNITOL 25% INJ (CANCER CTR) 12.5 GM, MAGNESIUM SULFATE (CANCER CTR) ... IV SCH; +FOSAPREPITANT DIMEGLUMINE 150 MG in NS (IVPB) CANCER CENTER ONLY 150 ML IV SCH; -HOLD METFORMIN - RECEIVED CONTRAST 20 ML VIAL IV SCH; -IOHEXOL 350 MG/ML 100 ML (OMNIPAQUE 350) VIAL IV ONE; -NS 100 ML (IVPB) BAG IV ONE; +NS IV 1000 ML (CANCER CTR) 1,000 ML ONE; +NS IV 1000 ML (CANCER CTR) IV SCH; +PALONOSETRON HCL 0.25 MG, DEXAMETHASONE INJECTION 10 MG in NS (IVPB) CANCER CENTER 50 ML IV SCH
== END 2019-10-12 | disposition home or self-care (01) ==
LOC: ONC 11:59
PROVIDERS: ATTEND Internal Medicine Hematology & Oncology
DX: Z51.11 Encounter for antineoplastic chemotherapy (principal); Z51.0 Encounter for antineoplastic radiation therapy; C04.1 Malignant neoplasm of lateral floor of mouth; C14.8 Malignant neoplasm of overlapping sites of lip, oral cavity and pharynx; K59.00 Constipation, unspecified; T85.848A Pain due to other internal prosthetic devices, implants and grafts, initial encounter; M19.90 Unspecified osteoarthritis, unspecified site; F41.9 Anxiety disorder, unspecified; F32.9 Major depressive disorder, single episode, unspecified; I47.1 Supraventricular tachycardia; I80.209 Phlebitis and thrombophlebitis of unspecified deep vessels of unspecified lower extremity; Z93.1 Gastrostomy status; Z96.659 Presence of unspecified artificial knee joint; Z98.890 Other specified postprocedural states; Z89.432 Acquired absence of left foot; Z95.5 Presence of coronary angioplasty implant and graft; Z95.828 Presence of other vascular implants and grafts; Z80.9 Family history of malignant neoplasm, unspecified
CPT/HCPCS: 36591; 36593; 77336; 77386; 80048; 80053; 83735; 85025; 96367; 96375; 96413; 99213

== ENCOUNTER → 2019-09-16 | Outpatient (CLI) | payer MEDICARE, MEDICAID ==
[~2019-09-16] MED LIST changes: +ACHYD1T PO; -HYDR-3820 PO
--- NOTE | 2019-09-16 12:24 | Diagnostic Imaging Report ---
PROCEDURE: CT head with and without contrast. TECHNIQUE: Multiple contiguous axial images were obtained through the brain before and after the administration of intravenous contrast. Auto Exposure Controls were utilized during the CT exam to meet ALARA standards for radiation dose reduction. INDICATION: Seizure. Patient has history of oral carcinoma. COMPARISON: Comparison is made with noncontrast head CT from 12/09/2015. FINDINGS: Moderate size region of encephalomalacia in the left middle cerebral artery territory is again noted consistent with prior infarct. Compensatory enlargement of the left lateral ventricle is unchanged. There is no sulcal effacement or midline shift. No acute intra-axial or extra-axial hemorrhage is detected. Cisterns are patent. Visualized paranasal sinuses are clear. Postcontrast images are without an abnormal enhancing lesion. IMPRESSION: Stable chronic changes when compared with examination from 12/09/2015. No enhancing lesion is identified. No acute feature is identified. Dictated by: Dictated on workstation # [id number]
== END ==
LOC: RAD 11:19
PROVIDERS: ATTEND Internal Medicine Hematology & Oncology
DX: R56.9 Unspecified convulsions (principal); Z85.818 Personal history of malignant neoplasm of other sites of lip, oral cavity, and pharynx
CPT/HCPCS: 70470

== ENCOUNTER 2019-11-05 13:40 | Emergency (ER) | payer MEDICARE, MEDICAID ==
[~2019-11-05] VITALS: Ht 157 cm; Wt 80.1 kg
[~2019-11-05 13:40] MED LIST changes: -ALTEPLASE 2 MG (CATHFLO) CANCER CENTER IV ONE; -CISplatin 60 MG, MANNITOL 25% INJ (CANCER CTR) 12.5 GM, MAGNESIUM SULFATE (CANCER CTR) ... IV SCH; -FOSAPREPITANT DIMEGLUMINE 150 MG in NS (IVPB) CANCER CENTER ONLY 150 ML IV SCH; -NS IV 1000 ML (CANCER CTR) 1,000 ML ONE; -NS IV 1000 ML (CANCER CTR) IV SCH; -PALONOSETRON HCL 0.25 MG, DEXAMETHASONE INJECTION 10 MG in NS (IVPB) CANCER CENTER 50 ML IV SCH
--- NOTE | 2019-11-05 14:11 | ED EENT ---
History of Present Illness General Stated Complaint: COUGH Source: patient Exam Limitations: no limitations History of Present Illness Date Seen by Provider: Nov 05, 2019 Time Seen by Provider: 14:08 Initial Comments To ER with reports of a left-sided nosebleed that occurred last night. This lasted about 30 minutes, resolved on its own. She feels a little weak today and was referred to the emergency room. No cough no shortness of breath no fever. She is on aspirin and Ellick was. No nosebleed today. History of CVA with some expressive dysphasia and right-sided weakness. Timing/Duration: abrupt Severity: moderate Location: nose Associated Symptoms: No cough Allergies and Home Medications Allergies Coded Allergies: ceftriaxone (Verified Allergy, Severe, DIFFICULTY BREATING, 07/05/19) levofloxacin (Verified Allergy, Severe, C-DIFF, 07/05/19) Home Medications Albuterol Sulfate 2.5 Mg/3 Ml Vial.neb, 2.5 MG NEB Q6H PRN for SHORTNESS OF BREATH, (Reported) Apixaban 5 Mg Tablet, 0 PEG UD 10 mg twice daily for 9 days, then 5 mg twice daily. Prescribed by: SATNAM MIKE on 08/18/19 1041 Aspirin 81 Mg Tab.chew, 81 MG PEG HS, (Reported) Budesonide/Formoterol Fumarate 10.2 Gm Hfa.aer.ad, 2 PUFF INH BID, (Reported) Cyclobenzaprine HCl 5 Mg Tablet, 5 MG PEG DAILY PRN for MUSCLE SPASMS, (Reported ) Etanercept 50 Mg/1 Ml Syringe, 50 MG INJ We, (Reported) Fluconazole 100 Mg Tablet, 100 MG PEG DAILY Prescribed by: SATNAM MIKE on 08/18/19 1041 Gabapentin 250 Mg/5 Ml Solution, 6 ML PEG BID, (Reported) Hydrocodone/Acetaminophen 118 Ml Solution, 15 ML PEG BID, (Reported) L.acidoph & Paracasei,B.lactis 1 Each Capsule, 1 CAP PEG DAILY, (Reported) Montelukast Sodium 5 Mg Tab.chew, 10 MG PEG HS, (Reported) TAKES 2 (5MG) TABLETS Ondansetron 8 Mg Tab.rapdis, 8 MG PEG Q8H PRN for NAUSEA/VOMITING-1ST LINE, (Reported) Sertraline HCl 20 Mg/1 Ml Oral.conc, 2.5 ML PEG DAILY, (Reported) MIX WITH 4 OZ. ORANGE JUCIE, LEMONADE, AMBER ROBI, OR LEMON [place] SODA Tiotropium [place] 4 Gm Mist.inhal, 1 PUFF INH BID, (Reported) Zolpidem Tartrate 5 Mg Tablet, 5 MG PEG HS, (Reported) Patient Home Medication List Home Medication List Reviewed: Yes Review of Systems Review of Systems Constitutional: see HPI; No chills, No fever Nose: see HPI, epistaxis, other (denies any recent upper respiratory infection symptoms such as rhinorrhea or cough or nasal trauma from picking at her nose.) Throat: see HPI Respiratory: see HPI; No cough Cardiovascular: see HPI Past Bupqvaz-Ngqnol-Uftabf Hx Patient Social History Type Used: Cigarettes Former Smoker, Quit: Jul 13, 2014 2nd Hand Smoke Exposure: No Recent Foreign Travel: No Contact w/Someone Who Travel: No Recent Hopitalizations: Yes (APR-CANCER ON NECK) Immunizations Up To Date Tetanus Booster (TDap): Unknown PED Vaccines UTD: Yes Date of Pneumonia Vaccine: Jun 15, 2019 Date of Influenza Vaccine: Apr 12, 2018 Seasonal Allergies Seasonal Allergies: Yes Past Medical History Surgeries: Yes (heart ablation, mouth cancer, feeding tube,peripheral stents) Joint Replacement, Orthopedic, Vascular Surgery Respiratory: Yes (O2 3.5L NC AT NIGHT AND PRN) COPD, Emphysema Currently Using CPAP: No Currently Using BIPAP: No Cardiac: Yes (CAROTID DISEASE--COMPLETE OCCLUSION OF LEFT CAROTID) High Cholesterol, Peripheral Vascular Neurological: Yes (DYSPHAGIA, DYSARTHRIA; RIGHT SIDE WEAKNESS--POST CVA) Dementia, Stroke Reproductive Disorders: No Female Reproductive Disorders: Denies 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 ) Arthritis, Rheumatoid Arthritis Endocrine: No HEENT: Yes (GLASSES) Dysphagia, Tinnitis Loss of Vision: Bilateral Hearing Impairment: Denies Cancer: Yes Oral Did You Recieve Any Treatments: Yes What Type of Treatment Did You: Chemotherapy, Radiation, Surgical Intervention Psychosocial: Yes Sleep Difficulties, Anxiety, Depression Integumentary: No Blood Disorders: No Adverse Reaction/Blood Tranf: No (N/A) Family Medical History Cancer 09 SISTER Family history: Arthritis 09 BROTHER 09 SISTER Family history: Cardiovascular disease 09 SISTER Family history: Thyroid disorder 09 SISTER Malignant neoplasm of lung 09 SISTER Heart Disease Physical Exam Height, Weight, BMI Height: 5'2.00" Weight: 180lbs. 0.0oz. [id number]; 32.04 BMI Method:Actual General Appearance: WD/WN, no apparent distress Eyes: bilateral eye normal inspection, bilateral eye PERRL, bilateral eye EOMI Ears: bilateral ear auricle normal, bilateral ear canal normal, bilateral ear TM normal Nose: normal inspection, other (small amount of dried blood to the anterior aspect of the septum on the left side. No active bleeding. No blood in the oropharynx.) Respiratory: no respiratory distress, no accessory muscle use Gastrointestinal: normal bowel sounds, non tender Neurologic/Psychiatric: no motor/sensory deficits, alert, normal mood/affect, oriented x 3 Skin: normal color, warm/dry Progress/Results/Core Measures Results/Orders My Orders Orders - PALOMO SALAZAR APRN Cbc With Automated Diff (11/05/19 14:05) Basic Metabolic Panel (11/05/19 14:05) Departure Impression Primary Impression: Epistaxis Disposition: 01 HOME, SELF-CARE Condition: Stable Departure-Patient Inst. Decision time for Depature: 14:11 Referrals: [facility] (PCP/Family) Primary Care Physician Patient Instructions: PALOMO Rosario APRN Nov 05, 2019 14:11
[2019-11-05 14:17] LABS: BASOPHILS # (AUTO) 0.1 10^3/uL (0.0-0.1); BASOPHILS % (AUTO) 1 % (0-10); EOSINOPHILS # (AUTO) 0.2 10^3/uL (0.0-0.3); EOSINOPHILS % (AUTO) 2 % (0-10); HEMATOCRIT 34 % (35-52); HEMOGLOBIN 10.9 G/DL (11.5-16.0); LYMPHOCYTES # (AUTO) 3.2 X 10^3 (1.0-4.0); LYMPHOCYTES % (AUTO) 29 % (12-44); MEAN CORPUSCULAR HEMOGLOBIN 32 PG (25-34); MEAN CORPUSCULAR HGB CONC 32 G/DL (32-36); MEAN CORPUSCULAR VOLUME 101 FL (80-99); MEAN PLATELET VOLUME 9.6 FL (7.4-10.4); MONOCYTES # (AUTO) 0.9 X 10^3 (0.0-1.0); MONOCYTES % (AUTO) 8 % (0-12); NEUTROPHILS # (AUTO) 6.5 X 10^3 (1.8-7.8); NEUTROPHILS % (AUTO) 60 % (42-75); PLATELET COUNT 360 10^3/uL (130-400); RED CELL DISTRIBUTION WIDTH 13.5 % (10.0-14.5); WHITE BLOOD COUNT 10.9 10^3/uL (4.3-11.0)
[2019-11-05 14:26] LABS: CHLORIDE 101 MMOL/L (98-107); POTASSIUM 4.5 MMOL/L (3.6-5.0); SODIUM 138 MMOL/L (135-145)
[2019-11-05 14:27] LABS: CALCIUM 10.1 MG/DL (8.5-10.1)
[2019-11-05 14:28] LABS: GLUCOSE 100 MG/DL (70-105)
[2019-11-05 14:29] LABS: CARBON DIOXIDE 24 MMOL/L (21-32)
[2019-11-05 14:32] LABS: CREATININE SERUM 0.66 MG/DL (0.60-1.30); GFR ESTIMATED > 60
[2019-11-05 14:33] LABS: BUN/CREATININE RATIO 23
[2019-11-05 14:51] VITALS: BP 136/65
== END 2019-11-05 14:45 | disposition home or self-care (01) ==
LOC: EDUNIT# 13:40 → ER 13:42
DX: R04.0 Epistaxis (principal); J43.9 Emphysema, unspecified; I73.9 Peripheral vascular disease, unspecified; M06.9 Rheumatoid arthritis, unspecified; F41.9 Anxiety disorder, unspecified; F32.9 Major depressive disorder, single episode, unspecified; F03.90 Unspecified dementia, unspecified severity, without behavioral disturbance, psychotic disturbance, mood disturbance, and anxiety; Z99.81 Dependence on supplemental oxygen; Z86.73 Personal history of transient ischemic attack (TIA), and cerebral infarction without residual deficits; Z85.819 Personal history of malignant neoplasm of unspecified site of lip, oral cavity, and pharynx; Z89.432 Acquired absence of left foot; Z79.01 Long term (current) use of anticoagulants; Z79.82 Long term (current) use of aspirin; Z88.8 Allergy status to other drugs, medicaments and biological substances; Z88.1 Allergy status to other antibiotic agents
CPT/HCPCS: 36415; 80048; 85025

== ENCOUNTER 2019-11-07 09:35 | Emergency (ER) | payer MEDICARE, MEDICAID ==
[~2019-11-07] VITALS: Ht 160 cm; Wt 68.0 kg
--- OUTSIDE RECORDS SUMMARY | 2019-11-07 10:06 | XMS REPORT | Encounter Summary ---
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] P rocedures IN GLOSSECTOMY <ONE-HALF TONGUE IN CERVICAL LYMPHADEC MODIFIED RADICAL NECK DSJ IN SPLIT AGRFT T/A/L 1ST 100 CM/&/1% BDY INFT/CHLD GLOSSECTOMY LESS THAN ONE HALF TONGUE CERVICAL LYMPHADENECTOMY SPLIT THICKNESS SKIN AUTOGRAFT 100 SQ CM OR LESS OR 1% BODY AREA OF CHILD- UPPER EXTREMITY Encounter Details Care Team Description Date Type Department Gopi Mott MD [address] [facility] L[facility] [address] [place], [place] [id number] GLOSSECTOMY LESS THAN ONE HALF TONGUE 05/09/2019 Surgery [facility] [place] [address] [place] [address] Social History Date Tobacco Use Types Packs/Day Years Used Quit: 05/28/2015 Former Smoker Cigarettes 1 50 Smokeless Tobacco: Never Used Drinks/Week oz/Week Comments Alcohol Use used to have 10-12 b eers/day;10 shots/week quit 2003 No Sex Assigned at Date Recorded Not on file Industry Job Start Date Occupation Not on file Not on file Not on file Travel End Travel History Travel Start No recent travel history available. documented as of this encounter Last Filed Vital Signs Reading Time Taken Comments Vital Sign 124/72 05/10/2019 9:34 AM CDT Blood Pressure 67 05/10/2019 9:34 AM CDT Pulse 36.7 C (98.1 F) 05/10/2019 9:34 AM CDT Temperature - - Respiratory Rate 94% 05/10/2019 9:34 AM CDT Oxygen Saturation - - Inhaled Oxygen Concentration 91.8 kg (202 lb 6.1 oz) 05/09/2019 4:34 PM CDT Weight 160 cm (5' 3") 05/09/2019 4:34 PM CDT Height 35.85 05/09/2019 4:34 PM CDT Body Mass Index documented in this encounter Functional Status Date of Assessment Functional Status Response 02/16/2018 Does the patient have a hearing impairment: No documented as of this encounter Medications at Time of Discharge Start Date End Date Medication Sig Dispensed Refills albuterol (PROAIR HFA) 90 Inhale 2 0 mcg/actuation inhaler puffs by mouth into the lungs every 6 hours as needed for Wheezing or Shortness of Breath. Shake well before use. albuterol 0.5% Inhale 2.5 mg 0 (PROVENTIL) 2.5 mg/0.5 mL solution by nebulizer solution nebulizer as directed every 8 hours as needed for Shortness of Breath or Wheezing. aspirin EC 81 mg tablet Take 81 mg by 0 mouth at bedtime daily. Take with food. cetirizine (ZYRTEC) 10 mg Take 10 mg by 0 tablet mouth every morning. 05/10/2019 docusate (COLACE) 100 mg Take one 90 capsule 0 capsule capsule by mouth twice daily. etanercept (ENBREL) 50 Inject 50 mg 0 mg/mL (0.98 mL) injection under the skin every 7 days. gabapentin (NEURONTIN) Take 300 mg 0 300 mg capsule by mouth twice daily. 05/10/2019 HYDROcodone/acetaminophen Take one 0 (NORCO) 10/325 mg tablet tablet by mouth twice daily as needed for Pain Do not take when taking Oxycone montelukast (SINGULAIR) Take 10 mg by 0 10 mg tablet mouth at bedtime daily. pravastatin (PRAVACHOL) Take 20 mg by 0 20 mg tablet mouth at bedtime daily. sertraline (ZOLOFT) 50 mg Take 50 mg by 0 tablet mouth daily. 10/21/2017 SPIRIVA RESPIMAT 2.5 Inhale 1 puff 0 mcg/actuation inhaler by mouth into the lungs daily. 12/01/2017 SYMBICORT 160-4.5 Inhale 2 0 mcg/actuation inhalation puffs by mouth into the lungs twice daily. vitamins, multiple tablet Take 1 tablet 0 by mouth daily. zolpidem (AMBIEN) 10 mg Take 10 mg by 0 tablet mouth at bedtime daily. 05/10/2019 05/17/2019 oxyCODONE (ROXICODONE) 1 Take 5 mL by 250 mL 0 mg/mL oral solution mouth every 4 hours as needed documented as of this encounter Progress Notes * Dawson Guevara RN - 05/10/2019 11:07 AM CDT Lona Rollins discharged on 05/10/2019. . Discharge instructions reviewed with family. Valuables returned: Where Are Valuables Stored?: all belongings returned to pt in PACU from consult room A by RN. Home medications: . Functional assessment at discharge complete: Yes . Education addressed with no more questions at this time, discharge paperwork wit h patient, all valuables with patient, IV removed, patient taken by son via whee lchair * Kit Perez MD - 05/10/2019 6:24 AM CDT CARMEN/HNS PROGRESS NOTE Today's Date: 05/10/2019 Admission Date: 05/09/2019 LOS: 1 day Subjective No acute events overnight. POD 1. Pain controlled. HONEY at goal. No patient or dilshad sing concerns this AM. Objective Vital Signs: Last Filed Vital Signs: 24 Maikel r Range BP: 126/63 (05/10 548) Temp: 36.3 C (97.4 F) (05/10 548) Pulse: 69 (05/10 548) Respirations: 18 PER MINUTE (05/10 548) SpO2: 96 % (05/10 548) SpO2 Pulse: 76 (05/09 1500) Height: 160 cm (63") (05/09 1634) BP: (119-147)/(61-94) Temp: [36.2 C (97.2 F)-36.8 C (98.3 F)] Pulse: [67-81] Respirations: [8 PER MINUTE-21 PER MINUTE] SpO2: [91 %-100 %] Intensity Pain Scale (Self Report): 7(7-8) (05/09/19 1352) Vitals: 05/09/19 0800 05/09/19 1634 Weight: 86.9 kg (191 lb 9.3 oz) 91.8 kg (202 lb 6.1 oz) Drain Output: #1 right neck 20 cc/24hrs Intake/Output Summary: (Last 24 hours) Date 05/09/19 07 - 05/10/19 0705/10/19 07 - 05/11/19 07 Shift [id number] 7784-9118 24 Hour Total 4896-0382 9454-4815 24 Hour Total INTAKE I.V.(mL/kg/hr) 800(0.7) 800 Shift Total(mL/kg) 800(8.7) 800(8.7) OUTPUT Drains 12 8 20 Drain Output (ml) (Sabas Michel Drain 05/09/19 0923 Right Neck) 12 8 20 Other 50 50 Estimated Blood Loss 50 50 Shift Total(mL/kg) 62(0.7) 8(0.1) 70(0.8) NET 738 -8 730 Weight (kg) 91.8 91.8 91.8 91.8 91.8 91.8 Physical Exam AAOx3, NAD NC/AT PERRL, EOMI CNVII intact, symmetric Hearing grossly intact Good shoulder shrug No stridor or stertor, voice strong Neck flat, incision c/d/i with sutures, no fluctuance HONEY drain(s) sutured in place, SS drainage, holding bulb suction - removed right neck Respirations regular and unlabored Lab Review Comprehensive Metabolic Profile Lab Results Component Value Date/Time NA 138 04/27/2019 12:30 PM K 4.1 04/27/2019 12:30 PM CL 103 04/27/2019 12:30 PM CO2 25 04/27/2019 12:30 PM GAP 10 04/27/2019 12:30 PM BUN 16 04/27/2019 12:30 PM CR 0.84 04/27/2019 12:30 PM GLU 111 (H) 04/27/2019 12:30 PM GLU 97 01/07/2018 12:22 PM Lab Results Component Value Date/Time CA 9.4 04/27/2019 12:30 PM PO4 2.1 02/17/2018 05:22 AM ALBUMIN 3.7 04/27/2019 12:30 PM TOTPROT 7.1 04/27/2019 12:30 PM ALKPHOS 72 04/27/2019 12:30 PM AST 20 04/27/2019 12:30 PM ALT 16 04/27/2019 12:30 PM TOTBILI 0.6 04/27/2019 12:30 PM GFR >60 04/27/2019 12:30 PM GFRAA >60 04/27/2019 12:30 PM CBC w/Diff Lab Results Component Value Date/Time WBC 11.3 (H) 04/27/2019 12:30 PM RBC 4.21 04/27/2019 12:30 PM HGB 13.2 04/27/2019 12:30 PM HCT 39.9 04/27/2019 12:30 PM MCV 94.9 04/27/2019 12:30 PM MCH 31.3 04/27/2019 12:30 PM MCHC 33.0 04/27/2019 12:30 PM RDW 13.8 04/27/2019 12:30 PM PLTCT 346 04/27/2019 12:30 PM MPV 8.2 04/27/2019 12:30 PM Lab Results Component Value Date/Time NEUT 46.5 01/07/2018 12:22 PM ANC 5.0 01/07/2018 12:22 PM LYMA 41.9 01/07/2018 12:22 PM ALC 4.4 (H) 01/07/2018 12:22 PM Point of Care Testing (Last 24 hours) Radiology and other Diagnostics Review: Reviewed Problem List: Patient Active Problem List Diagnosis Date Noted Lung nodules 05/04/2018 COPD (chronic obstructive pulmonary disease) (HCC) 02/16/2018 On home oxygen therapy 02/16/2018 Cancer of oral cavity (HCC) 02/15/2018 Oral cancer (HCC) 01/29/2018 PSVT (paroxysmal supraventricular tachycardia) ([facility]) 01/07/2018 Palpitations 01/07/2018 AVNRT (AV jovan re-entry tachycardia) ([facility]) 01/07/2018 Chest pain 01/07/2018 CVA (cerebral vascular accident) ([facility]) 01/07/2018 AVNRT (AV jovan re-entry tachycardia) ([facility]) 01/07/2018 Tobacco abuse, in remission 07/07/2013 PAD (peripheral artery disease) ([facility]) 07/07/2013 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 female POD#1 s/p right modified radical neck dissec tion. - Pain control adequate, continue current regimen - Stable on RA, HDS - Tolerating PO, on bowel regimen - Afebrile, no leukocytosis - SCD's, SQH, pepcid - Dispo: home this morning Kit Perez MD Otolaryngology Resident, PGY-3 1964 For routine questions during weekday business hours, please page Dolores Blue at [phone]. All other questions and on weekends and nights ([phone]) page ENT on ca ll at [phone]. ING UNIT OPERATOR POWDER CHARGING * Nory Ball RN - 05/09/2019 5:44 PM CDT Patient arrived to room # (0681) via bed accompanied by transport. Patient trans ferred to the bed with assistance. Bedside safety checks completed. Initial tc ent assessment completed. Refer to flowsheet for details. Admission skin assessment completed with: Estela VICENTE Pressure injury present on arrival?: No 1. Head/Face/Neck: No 2. Trunk/Back: No 3. Upper Extremities: No 4. Lower Extremities: No 5. Pelvic/Coccyx: No 6. Assessed for device associated injury? Yes 7. Malnutrition Screening Tool (Nursing Nutrition Assessment) Completed? Yes See Doc Flowsheet for additional wound details. INTERVENTIONS: * Francesco Kamara, - 05/09/2019 5:18 PM CDT RT Adult Assessment Note NAME:Lona Rollins :1950 AGE: 68 y.o. ADMISSION DATE: 05/09/2019 DAYS ADMITTED: LOS: 1 day RT Treatment Plan: Protocol Plan: Medications Albuterol/Ipratropium: Neb PRN Protocol Plan: Procedures IPPB: Place a nursing order for "IS Q1h While Awake" for any of Lung Expansion i ndicators Oxygen/Humidity: O2 to keep SpO2 > 92% Monitoring: Pulse oximetry BID & PRN Vital Signs: Pulse: 77 RR: 18 PER MINUTE SpO2: 96 % O2 Device: Cannula Liter Flow: 2 Lpm O2%: Breath Sounds: Clear (implies normal) Respiratory Effort: * Zaida Carr RN - 05/09/2019 8:[address] Mott was present at bedside to olga patient. Anesthesia and Surgery cons ent both complete. Both notes complete. * Jovita Avila RN - 05/09/2019 7:56 AM CDT Pt belongings placed in consult room A by WR3. Code: 3100 Black wheelchair White belongings bag with clothing documented in this encounter H&P Notes * Dionisio Krueger MD - 05/09/2019 7:18 AM CDT History and Physical Update Note Allergies: Levaquin [levofloxacin] and Rocephin [ceftriaxone] Lab/Radiology/Other Diagnostic Tests: 24-hour labs: No results found for this visit on 05/09/19 (from the past 24 maikel r(s)). Point of Care Testing: (Last 24 hours): I have examined the patient, and there are no significant changes in their condi tion, from the previous H&P performed on 04/15/19. Dionisio Krueger MD Pager * Gopi Mott MD - 04/15/2019 10:15 AM CDT Date of Service: 04/15/2019 Chief Complaint Patient presents with Cancer Surveillance History of Present Illness: Lona Rollins is a 68 y.o. year old female evaluated on 04/15/2019, in the Otolaryn gology-Head and Neck Surgery Clinic at the [facility] f or follow-up of [id number] SCCa of right floor of mouth, s/p FOM resection with beryl ateral neck dessection by Dr. Mott in 02/2018. No adjuvant treatment recommen ded. Patient has been non-compliant with follow up. MIKE with Dr. Mott was 05/2018 . She reports today a 6 month history of right submandibular mass, slowly growin g. This is painful. Also c/o 3 day history of right FOM lesion. Denies otalgia, breathing issues, dysphagia. She has not worn her lower dentures since before he r surgery. Here today with 2 sons for follow up. Past Medical/Surgical History She has a past medical history of Alcoholism (HCC), Anxiety disorder, Arthritis , Carotid artery stenosis, COPD with emphysema (HCC), Depression, High cholester ol, Oral cancer (HCC), PSVT (paroxysmal supraventricular tachycardia) (HCC), Rhe umatoid arthritis (HCC), Seasonal allergic reaction, Skin cancer of eyelid, Stro ke (HCC) (2014), and Tobacco abuse. Her has a past surgical history that includes appendectomy; tubal ligation; hip replacement (Right); ablation of dysrhythmic focus (01/2018); surgery; Foot Amp utation (Left); knee replacement (Right); lymphadenectomy (Bilateral, 02/15/2018); and Neck surgery (N/A, 02/15/2018). Past Family/Social History Her family history includes Gout in her brother and sister; Heart Attack in her mother. She reports that she quit smoking about 3 years ago. Her smoking use included c igarettes. She has a 40.00 pack-year smoking history. She has never used smokele ss tobacco. She reports that she does not drink alcohol or use drugs. Medications/Allergies/Immunizations Her current medication(s) include: Current Outpatient Medications Medication Sig Dispense Refill acetaminophen (TYLENOL) 160 mg/5 mL oral solution Take 20.3 mL via feeding t ube every 4 hours as needed. Max of 4,000 mg of acetaminophen in 24 hours. 240 m L 0 apixaban (ELIQUIS) 5 mg tablet Take 5 mg by mouth twice daily. aspirin EC 81 mg tablet Take 81 mg by mouth daily. Take with food. cetirizine (ZYRTEC) 10 mg tablet Take 10 mg by mouth every morning. Cholecalciferol (Vitamin D3) (VITAMIN D) 1,000 unit cap Take 1 capsule by mo ut daily. etanercept (ENBREL) 50 mg/mL (0.98 mL) injection Inject 50 mg under the skin every 7 days. fluconazole (DIFLUCAN) 100 mg tablet Take one tablet by mouth daily. 1 table t 1 Lactobacillus acidophilus (PROBIOTIC PO) Take by mouth twice daily. magnesium oxide (MAG-OX) 400 mg tablet Take 1 tablet by mouth daily. 180 tab let 3 montelukast (SINGULAIR) 10 mg tablet Take 10 mg by mouth at bedtime daily. oxyCODONE/acetaminophen (PERCOCET; ENDOCET; ROXICET) 5/325 mg tablet Take on e tablet via feeding tube every 4 hours as needed 20 tablet 0 pravastatin (PRAVACHOL) 10 mg tablet Take one tablet by mouth at bedtime arturo ly. Per feeding tube 90 tablet 3 ranitidine(+) (ZANTAC) 150 mg tablet Take 150 mg by mouth twice daily. senna/docusate (SENOKOT-S) 8.6/50 mg tablet one tablet by Per G Tube route t wice daily as needed. 60 tablet 0 sertraline (ZOLOFT) 50 mg tablet Take 50 mg by mouth daily. SPIRIVA RESPIMAT 2.5 mcg/actuation inhaler Inhale 1 puff by mouth into the l ungs daily. SYMBICORT 160-4.5 mcg/actuation inhalation Inhale 2 puffs by mouth into the lungs twice daily. traZODone (DESYREL) 50 mg tablet Take 100 mg by mouth at bedtime as needed f or Sleep. No current facility-administered medications for this visit. Allergies: Levaquin [levofloxacin] and Rocephin [ceftriaxone] Immunizations: There is no immunization history on file for this patient. Review of Systems Constitutional: Weight has increased 9 pounds since last visit. HENT: Positive for mouth sores, tinnitus. Eyes: Negative. Respiratory: Negative for shortness of breath. Cardiovascular: Positive for palpitations. Pt s/p ablation for PSVT. Gastrointestinal: Negative. Endocrine: Negative. Genitourinary: Negative. Musculoskeletal: Positive for arthralgiasand joint swelling. Skin: Negative. Allergic/Immunologic: Negative. Neurological: Positive for speech difficulty. Hematological: Negative. Psychiatric/Behavioral: Positive for sleep disturbance. All other systems are ne gative except for that listed in the HPI. PHYSICAL EXAM: Vital Signs: BP 131/80 | Pulse 73 | Ht 160 cm (63") | Wt 85.7 kg (189 lb) | BMI 33.48 kg/m General: Well-developed, well-nourished Communication and Voice: [...] patent with intact skin Tympanic Membrane: Clear External nose: No scar or anatomic deformity Internal Nose: Septum intact and midline. No edema, polyp, or rhinorrhea. TMJ: No pain to palpation with full mobility Oral cavity, Lips, Teeth, and Gums: Mucosa intact, edentulous. Well healed floo r of mouth with post surgical treatment changes. Right FOM with 1 cm x 1 mm leuk oplakia, non friable. Nontender. Erythema surrounding. Oropharynx: No erythema or exudate, no masses or ulcerations, non-obstructive to nsils Nasopharynx: Not visualized Hypopharynx: Not visualized Larynx: Not visualized Neck, Trachea, Lymphatics: Midline trachea, Firm, tender mass located right sub mandibular area, measuring 4 cm. Well healed neck incision Thyroid: No mass or nodularity Eyes: No nystagmus with equal extraocular motion bilaterally Neuro/Psych/Balance: Patient oriented and appropriate in interaction; Appropria te mood and affect; Patient in wheelchair; Cranial nerves I-XII are intact Respiratory effort: Equal inspiration and expiration without stridor PATHOLOGY REVIEW: No new path RADIOLOGIC REVIEW: No new imaging IMPRESSION: My impression is that Ms. Rollins has a history of T1N0M0 SCCa of right oral cavi ty, with evidence of recurrence on exam with a new submandibular mass. PLAN: FNA biopsy right submandibular mass CTN/CTC for cancer surveillance Surgical resection of mass - specific plans to follow CT I believe that Ms. Rollins has a good understanding of the issues involved and I answered all of her questions. Attending Physician Note I independently interviewed, examined and formulated the medical decision making for Ms. Rollins. Details of my interview, examination findings, and medical dec ision-making confirmed the findings in the resident physician's documentation. I have personally amended the resident physician's documentation in bold where a ppropriate. FNA showed cancer will proceed with surgical excision, will need radiation and m aybe chemo after. Staff name: Gopi Mott MD Date: 04/20/2019 documented in this encounter Miscellaneous Notes * Care Plan - Dawson Guevara RN - 05/10/2019 11:07 AM CDT Problem: Discharge Planning Goal: Participation in plan of care Outcome: Goal Achieved Goal: Knowledge regarding plan of care Outcome: Goal Achieved Goal: Prepared for discharge Outcome: Goal Achieved Problem: Falls, High Risk of Goal: Absence of falls-Adult Patient Outcome: Goal Achieved Goal: Absence of Falls-Pediatric patient Outcome: Goal Achieved * Anesthesia Post Op Day 1 - Jessie Cavazos SRNA - 05/10/2019 10:55 AM CDT Anesthesia Follow-Up Evaluation: Post-Procedure Day One Name: Lona Rollins : 1950 Age: 68 y.o. Sex: female Procedure Date: 05/09/2019 Procedure: Procedure(s) with comments: GLOSSECTOMY LESS THAN ONE HALF TONGUE - CASE LENGTH 1 HOUR CERVICAL LYMPHADENECTOMY Physical Assessment Height: 160 cm (63") Weight: 91.8 kg (202 lb 6.1 oz) Vital Signs (Last Filed in 24 hours) BP: 124/72 (05/10 934) Temp: 36.7 C (98.1 F) (05/10 934) Pulse: 67 (05/10 934) Respirations: 20 PER MINUTE (05/10 934) SpO2: 94 % (05/10 934) SpO2 Pulse: 76 (05/09 1500) Height: 160 cm (63") (05/09 1634) Patient History Allergies Allergies Allergen Reactions Levaquin [Levofloxacin] SEE COMMENTS C Diff Rocephin [Ceftriaxone] HEADACHE, NAUSEA ONLY and DIZZINESS Medications Scheduled Meds: aspirin EC tablet 81 mg 81 mg Oral QHS bacitracin topical ointment Topical TID cetirizine (ZYRTEC) tablet 10 mg 10 mg Oral QAM8 docusate (COLACE) oral solution 100 mg 100 mg Per NG tube BID famotidine (PEPCID) oral suspension 20 mg 20 mg Per NG tube BID gabapentin (NEURONTIN) capsule 300 mg 300 mg Oral BID heparin (porcine) PF syringe 5,000 Units 5,000 Units Subcutaneous Q8H milk of magnesia (CONC) oral suspension 10 mL 10 mL Per NG tube QHS montelukast (SINGULAIR) tablet 10 mg 10 mg Oral QHS pravastatin (PRAVACHOL) tablet 20 mg 20 mg Oral QHS vitamins, multiple tablet 1 tablet 1 tablet Oral QDAY zolpidem (AMBIEN) tablet 10 mg 10 mg Oral QHS Continuous Infusions: lactated ringers infusion Stopped (05/09/19 1112) PRN and Respiratory Meds:acetaminophen Q4H PRN, albuterol 0.5% Q4H PRN, bisacody l QDAY PRN, ipratropium bromide Q4H PRN, ondansetron (ZOFRAN) IV Q6H PRN, oxyCOD ONE Q4H PRN Diagnostic Tests Hematology: Lab Results Component Value Date HGB 13.2 04/27/2019 HCT 39.9 04/27/2019 PLTCT 346 04/27/2019 WBC 11.3 04/27/2019 NEUT 46.5 01/07/2018 ANC 5.0 01/07/2018 ALC 4.4 01/07/2018 MCV 94.9 04/27/2019 MCH 31.3 04/27/2019 MCHC 33.0 04/27/2019 MPV 8.2 04/27/2019 RDW 13.8 04/27/2019 General Chemistry: Lab Results Component Value Date NA 138 04/27/2019 K 4.1 04/27/2019 CL 103 04/27/2019 CO2 25 04/27/2019 GAP 10 04/27/2019 BUN 16 04/27/2019 CR 0.84 04/27/2019 GLU 111 04/27/2019 GLU 97 01/07/2018 CA 9.4 04/27/2019 ALBUMIN 3.7 04/27/2019 MG 1.6 02/17/2018 TOTBILI 0.6 04/27/2019 PO4 2.1 02/17/2018 Coagulation: No results found for: PT, PTT, INR Follow-Up Assessment Patient location during evaluation: floor Anesthetic Complications: Anesthetic complications: The patient did not experience any anesthestic complic ations. Pain: Score: 0 Management:adequate Level of Consciousness: awake and alert Hydration:acceptable Airway Patency: patent Respiratory Status: acceptable and spontaneous ventilation Cardiovascular Status:acceptable and hemodynamically stable Regional/Neuroaxial: Comments: DC home today * Procedures (Immed Post or Bedside) - Gopi Mott MD - 05/09/2019 9:39 AM CDT Brief Operative Note - Otolaryngology-Head and Neck Surgery Pre-Operative Diagnosis: oral cancer Post-Operative Diagnosis: same Procedure(s): Right suprahyoid neck dissection Rotational advancement closure of neck 3x5cm Surgeon(s): Rafaela Senior Cyber Intelligence Analyst Surgeon(s): Evans Estimated Blood Loss: 50 cc Specimen(s): sent to pathology Findings: gross total resection of neck mass Oral cavity without any suspicious lesions Complications: None ATTESTATION I performed this procedure with a resident. Staff name: Gopi Mott MD Date: 05/09/2019 ING UNIT OPERATOR POWDER CHARGING * Operative Report (Direct Entry) - Gopi Mott MD - 05/09/2019 9:05 AM CDT OPERATIVE REPORT Name: Lona Rollins is a 68 y.o. female : 1950 DATE OF OPERATION: 05/09/2019 Surgeon(s) and Role: * Gopi Mott MD - Primary * Dionisio Krueger MD - Resident - Assisting Preoperative Diagnosis: Malignant neoplasm of mouth (HCC) [C06.9] Post-op Diagnosis * Malignant neoplasm of mouth (HCC) [C06.9] Procedure(s): Right suprahyoid neck dissection Rotational advancement closure of neck 3x5 cm Anesthesia Type: Defer to Anesthesia Findings: gross total resection of neck mass Oral cavity without any suspicious lesions Description and Findings of Operative Procedure: Prior to the procedure, the risks, benefits and alternatives were discussed with the patient and informed consent was obtained. The patient was brought to the operating room and moved to the operating room table by the perioperative staff. The anesthesia team performed induction and intubation. The head of bed was r otated 90 degrees. Head wrap was placed for eye protection. The patient was pr epped and draped in normal sterile fashion. A timeout was held by all team memb ers. The oral cavity was inspected and no suspicious lesions along the floor of mouth or tongue were noted. We then turned our attention to the neck. The proposed incision site along the right neck was marked out and injected with 1% lidocaine with epinephrine 1-100,000. An elliptical incision was marked out overlying th e submandibular mass encompassing the skin that was fixed. Using a 15 blade sca lpel, incision was carried through to the subcutaneous tissue. Small inferior a nd superior subcutaneous flaps were raised. Messerschmidt was used for dissecti on around the mass. Care was taken to watch for the marginal mandibular nerve w hich was not encountered. The mass was noted to be stuck to digastric and myloh yoid muscle so this was included in a specimen. The mass was then freely mobili zed from the underlying hyoid bone. We continued to dissect around the mass unt il it was ready for complete excision. The mass was then sent to pathology for permanent specimen. An inferior and laterally based rotational advancement flap was then raised usin g blunt and sharp dissection and rotated superior and medial to cover the neck s kin defect in a tension free manner. The wound bed was then diffusely irrigated and meticulous hemostasis was obtaine d. A Valsalva was performed by the anesthesia team to confirm hemostasis. A si ngle 19 Yoruba HONEY drain was placed. The wound was then closed in layers. 3-0 V icryls were used for deep dermal. 5-0 Prolene's were used to close the skin. B acitracin was then applied to the neck. The patient was then returned to the an esthesia team for reversal of the anesthetic. There were no complications. At the end of the case, all counts were correct x2. Dr. Mott performed the pro cedure with resident assistance. Patient was taken to PACU in stable condition. Estimated Blood Loss: 50cc. Specimen(s) Removed/Disposition: ID Type Source Tests Collected by Time Destination 1 : Right Neck Dissection Tissue Neck,Right SURGICAL PATHOLOGY Gopi Mott MD 05/09/[id number] Dionisio Krueger MD Pager ING UNIT OPERATOR POWDER CHARGING documented in this encounter Plan of Treatment Order Schedule Name Type Priority Associated Diag noses ONCE for 1 Occurrences starting 05/09/20 19 SURGICAL PATHOLOGY Pathology Routine Malignant n eoplasm of mouth (HCC) documented as of this encounter Procedures Comments Procedure Name Priority Date/Time Associated Diag nosis HC LEVEL V SRG PTH, GROSS 05/09/2019 & MICRO 10:17 AM CDT CERVICAL LYMPHADENECTOMY 05/09/2019 Malignant ne oplasm of 8:41 AM CDT mouth (HCC) GLOSSECTOMY LESS THAN ONE 05/09/2019 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) HC ABO GROUP STAT 05/09/2019 Cancer of oral cavity 7:18 AM CDT (HCC) TELEMETRY STRIPS-SCAN 05/09/2019 12:00 AM CDT documented in this encounter Results * SURGICAL PATHOLOGY (05/09/2019 10:17 AM CDT) PATHOLOGY [email or web address] Department of Pathology and Laboratory Medicine [address] [place] [address] Surgical Pathology Office: [phone] SURGICAL PATHOLOGY REPORT NAME: LONA ROLLINS SURG PATH #: [id number] MR #: [id number] SPECIMEN CLASS: [facility] BILLING #: [id number] ALT ID #: LOCATION: [facility] DATE OF PROCEDURE: 05/09/2019 AGE: 68 SEX: F DATE RECEIVED: 05/09/2019 : 1950 TIME RECEIVED: : PHYSICIAN: GOPI MOTT MD DATE OF REPORT: 05/11/2019 COPY TO: DATE OF PRINTIN05/11/2019 ############################## ############################## ############ Final Diagnosis: A. Soft tissue, right neck, excision: Metastatic squamous cell carcinoma, poorly differentiated and keratinizing. No definitive lymph node parenchyma present. Comment: This may represent a soft tissue metastasis or complete replacement of a lymph node with extensive extranodal extension. Attestation: By this signature, I attest that I have personally formulated the final interpretation expressed in this report and that the above diagnosis is based upon my examination of the slides and/or other material indicated in this report. +++ +++ Edy Chicas MD Fellow /05/09/2019 ############################## ############################## ############ Material Received: A: right neck dissection History: 68-year-old female with a clinical history of malignant neoplasm of mouth. Gross Description: A. Received in formalin labeled with the patient's name and "right neck dissection" is an unoriented ellipse of boudreaux-white skin and underlying soft tissue measuring entirely 7.0 x 3.3 cm and excised to a maximum depth of 3.6 cm. The skin measures 7.0 x 2.8 x 0.4 cm and is grossly unremarkable. The resection margin of the specimen is inked black. The specimen is sectioned to reveal a boudreaux-white mass in the soft tissue measuring 3.5 x 2.6 x 2.4 cm. The mass is located 1.0 cm to the closest skin margin, 0.9 cm to the skin surface, and 0.2 cm to the closest soft tissue margin. No lymph nodes are identified within the specimen. Staff Research Scientist sections of the mass are submitted in cassettes A1-A4. (sc) sc/05/09/2019 Specimen Performing Organization Address [facility] Ph one Number MAIN LAB [address] [place] [address] * TYPE & CROSSMATCH (05/09/2019 7:18 AM CDT) Units Ordered 0 Zapper MAIN LAB Crossmatch 05/12/2019 [facility] Expires Record Check FOUND Zapper MAIN LAB ABO/RH(D) A NEG Zapper MAIN LAB Antibody Screen NEG MAIN LAB Electronic YES MAIN LAB Crossmatch Specimen Blood Performing Organization Address [facility] Ph one Number MAIN LAB [address] [place] [address] * TELEMETRY STRIPS-SCAN (05/09/2019 12:00 AM CDT) Narrative Performed At This result has an attachment that is n ot available. Ordered by an unspecified provider. documented in this encounter Visit Diagnoses Diagnosis Malignant neoplasm of mouth (HCC) Malignant neoplasm of mouth, unspecifie d site documented in this encounter Administered Medications Action Date Dose Rate Site Medication Order MAR Action 05/09/2019 1:52 PM CDT 650 mg acetaminophen (TYLENOL) oral solution Given 650 mg 650 mg, Per NG tube, EVERY 4 HOURS PRN , Starting 05/09/19 at 1122, Until 05/10/19 at 1319, Pain non-opioid: may be used alone or in combination with opioid analgesia, Temp > 38.5 C, TOTAL ACETAMINOPHEN DOSE NOT TO EXCEED 4GM DAILY, 05/09/2019 8:46 PM CDT 81 mg aspirin EC tablet 81 mg Given 81 mg, Oral, AT BEDTIME DAILY, First dose on Thu05/09/19 at 2100, Until Discontinued 05/10/2019 9:13 AM CDT bacitracin topical ointment Given Topical, THREE TIMES DAILY, First dose on Thu05/09/19 at 1515, Until Discontinued, Apply to incision, Given 05/09/2019 10:19 PM CDT 05/10/2019 9:10 AM CDT 2 g ceFAZolin (ANCEF) IVP 2 g Given 2 g, Intravenous, EVERY 8 HOURS, 3 doses, First dose on Thu05/09/19 at 1700, Last dose on Thu05/10/19 at 0900 , IV PUSH -- RECONSTITUTE each 1 g vial b y adding 10 mL 0.9% NACL, 2 g Given 05/10/2019 1:11 AM CDT 2 g Given 05/09/2019 5:57 PM CDT 05/10/2019 9:10 AM CDT 10 mg cetirizine (ZYRTEC) tablet 10 mg Given 10 mg, Oral, EVERY MORNING, First dose on Thu05/10/19 at 0800, Until Discontinued 05/09/2019 8:46 PM CDT 20 mg famotidine (PEPCID) oral suspension 20 Given mg 20 mg, Per NG tube, TWICE DAILY, First dose on Thu05/09/19 at 2100, Until Discontinued 05/09/2019 10:43 AM CDT 50 mcg fentaNYL citrate PF (SUBLIMAZE) Given injection 50 mcg 50 mcg, Intravenous, EVERY 5 MIN PRN, Starting Thu05/09/19 at 0948, Until Mo n 05/09/19 at 1556, Pain Injectable, For Pain Score 7-10, Maximum total dose of 200 mcg Hold for RR < 10, PACU (only) 50 mcg Given 05/09/2019 10:15 AM CDT 50 mcg Given 05/09/2019 10:03 AM CDT 05/10/2019 9:10 AM CDT 300 mg gabapentin (NEURONTIN) capsule 300 mg Given 300 mg, Oral, TWICE DAILY, First dose o n Thu05/09/19 at 2100, Until Discontinue d 300 mg Given 05/09/2019 8:46 PM CDT 05/09/2019 10:20 AM CDT 0.5 mg haloperidol (HALDOL) injection 0.5 mg Given 0.5 mg, Intravenous, ONCE PRN, 1 dose, Starting Thu05/09/19 at 0948, Until n 05/09/19 at 1020, Other..., Nausea and Vomiting, First line agent. DO NOT ADMINISTER if given intraoperatively, PACU (only) 05/10/2019 6:16 AM CDT 5,000 Units Abdomen: LUQ heparin (porcine) PF syringe 5,000 Units Given 5,000 Units, Subcutaneous, EVERY 8 HOURS, First dose on Thu05/10/19 at 0600, Until Discontinued, NOTE: This is a HIGH ALERT Medication., 05/09/2019 8:35 AM CDT lactated ringers infusion Given - New 1,000 mL, 1,000 mL, Intravenous, at 20 Bag mL/hr, CONTINUOUS, Starting Thu 9 at 0700, Until Thu05/10/19 at 1319 1,000 mL 20 mL/hr Given - New Bag 05/09/2019 7:54 AM CDT LACTATED RINGERS IV SOLP (Cabinet Override) NOW, 1 dose, Thu05/09/19 at 0545, Created by cabinet override, Created by cabinet override, 05/09/2019 8:46 PM CDT 10 mg montelukast (SINGULAIR) tablet 10 mg Given 10 mg, Oral, AT BEDTIME DAILY, First dose on Thu05/09/19 at 2100, Until Discontinued 05/09/2019 6:58 PM CDT 5 mg oxyCODONE (ROXICODONE) oral solution 5 Given mg 5 mg, Oral, EVERY 4 HOURS PRN, Startin g Thu05/09/19 at 1122, Until Thu 9 at 1319, Pain PO 5 mg Given 05/09/2019 11:29 AM CDT 05/09/2019 8:46 PM CDT 20 mg pravastatin (PRAVACHOL) tablet 20 mg Given 20 mg, Oral, AT BEDTIME DAILY, First dose on Thu05/09/19 at 2100, Until Discontinued 05/10/2019 9:10 AM CDT 1 tablet vitamins, multiple tablet 1 tablet Given 1 tablet, Oral, DAILY, First dose on Mo n 05/09/19 at 1515, Until Discontinued 1 tablet Given 05/09/2019 5:57 PM CDT 05/09/2019 8:46 PM CDT 10 mg zolpidem (AMBIEN) tablet 10 mg Given 10 mg, Oral, AT BEDTIME DAILY, First dose on Thu05/09/19 at 2100, Until Discontinued documented in this encounter
--- OUTSIDE RECORDS SUMMARY | 2019-11-07 10:06 | XMS REPORT | Clinical Summary ---
Author Author [facility] Organization [facility] Address Unknown Phone Unavailable Care Team Providers Care Termite Exterminator Name Role Phone RubinaDarling Domenica DO Unavailable Unavailable Herman CastrejonD Unavailable Unavailable Didi Louie APRN PCP Devin Samuels DO Unavailable Source Comments Some departments are not documenting in the electronic medical record. If you d o not see the information that you expected, contact Release of Information in [facility] Information Management department at [phone] for further assistan ce in locating additional records.[facility] Allergies Comments Active Allergy Reactions Severity Noted Date C Diff Levofloxacin SEE COMMENTS Low 01/07/2018 Ceftriaxone HEADACHE, Low 12/25/2017 NAUSEA ONLY, DIZZINESS Medications End Date Status Medication Sig Dispensed Refills Start Date Active etanercept (ENBREL) 50 Inject 50 mg 0 mg/mL (0.98 mL) injection under the skin every 7 days. Active montelukast (SINGULAIR) Take 10 mg by 0 10 mg tablet mouth at bedtime daily. Active aspirin EC 81 mg tablet Take 81 mg by 0 mouth at bedtime daily. Take with food. Active sertraline (ZOLOFT) 50 mg Take 50 mg by 0 tablet mouth daily. Active SYMBICORT 160-4.5 Inhale 2 0 mcg/actuation inhalation puffs by 8 mouth into the lungs twice daily. Active SPIRIVA RESPIMAT 2.5 Inhale 1 puff 0 mcg/actuation inhaler by mouth into 8 the lungs daily. Active cetirizine (ZYRTEC) 10 mg Take 10 mg by 0 tablet mouth every morning. Active gabapentin (NEURONTIN) Take 300 mg 0 300 mg capsule by mouth twice daily. Active pravastatin (PRAVACHOL) Take 20 mg by 0 20 mg tablet mouth at bedtime daily. Active albuterol (PROAIR HFA) 90 Inhale 2 0 mcg/actuation inhaler puffs by mouth into the lungs every 6 hours as needed for Wheezing or Shortness of Breath. Shake well before use. Active zolpidem (AMBIEN) 10 mg Take 10 mg by 0 tablet mouth at bedtime daily. Active vitamins, multiple tablet Take 1 tablet 0 by mouth daily. Active albuterol 0.5% Inhale 2.5 mg 0 (PROVENTIL) 2.5 mg/0.5 mL solution by nebulizer solution nebulizer as directed every 8 hours as needed for Shortness of Breath or Wheezing. Active docusate (COLACE) 100 mg Take one 90 capsule 0 1 capsule capsule by 9 mouth twice daily. Active HYDROcodone/acetaminophen Take one 0 04/13 (NORCO) 10/325 mg tablet tablet by 9 mouth twice daily as needed for Pain Do not take when taking Oxycone Active oxyCODONE (ROXICODONE) 1 Take 5 mL by 125 mL 0 mg/mL oral solution mouth every 4 9 hours as needed Active Problems Problem Noted Date Lung nodules 05/04/2018 COPD (chronic obstructive pulmonary disease) 018 On home oxygen therapy 02/16/2018 Cancer of oral cavity 02/15/2018 Oral cancer 01/29/2018 Cancer Staging: Pathologic stage from : Stage I (pT1, pN0, cM0) - Signed by Herman Ramos PA-C on 018 Pathologic: Stage I (rpT1, pN2a, cM0) - Signed by Lorie Jacob PA-C on 05/19/2019 Overview: Added automatically from request for yolette navarro [id number] PSVT (paroxysmal supraventricular tachycardia) 01/07 Overview: ECHO 11/20/15: normal LV with EF of 60-6 5%, trivial MR and TR, mild diastolic dysfunction. 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 Respiratory Rate 94% 05/10/2019 9:34 AM CDT Oxygen Saturation - - Inhaled Oxygen Concentration 79.4 kg (175 lb) 09/21/2019 10:50 AM CDT Weight 160 cm (5' 3") 09/21/2019 10:50 AM CDT Height 31 09/21/2019 10:50 AM CDT Body Mass Index Plan of Treatment Health Maintenance Due Date Last Done Comments MEDICARE ANNUAL WELLNESS 1950 VISIT DTAP/TDAP VACCINES (1 - 1967 Tdap) HEPATITIS C SCREENING 1967 PHYSICAL (COMPREHENSIVE) 1967 EXAM BREAST CANCER SCREENING 1989 COLORECTAL CANCER 1999 SCREENING SHINGLES RECOMBINANT 1999 VACCINE (1 of 2) OSTEOPOROSIS 2014 SCREENING/MONITORING PNEUMONIA (PPSV23) 2014 VACCINE (1 of 1 - PPSV23) INFLUENZA VACCINE 04/12/2020 Results Not on filefrom Last 3 Months Insurance Type Payer Benefit Subscriber ID Effective Phone Address Plan / Dates Group Medicare [facility] MEDICARE [facility] xxxxxxxxx 2019-P COMMUNITY resent PLAN [place] Medicaid [facility] MEDICAID [facility] xxxxxxxxxxx 2017-P COMMUNITY resent PLAN [place] [facility] xxxxxxxxxxx 01/29/2018 - [place] Present HEALTH/SNF /HALFWAY [id number] Advance Directives Patient Software Technician Explanation Type Date Recorded Advance 04/27/2019 12:37 PM Directive/DPOA Date Inactivated Comments Code Status Date Activated 05/10/2019 1:24 PM Full Code 05/09/2019 3:12 PM Provider has discussed Code Status No, discussion no t w/Patient or Family? necessary based on Dx 02/19/2018 3:33 PM Full Code 02/15/2018 6:28 PM Provider has discussed Code Status No, discussion no t w/Patient or Family? necessary based on Dx 01/22/2018 3:07 PM Full Code 01/21/2018 6:08 AM Provider has discussed Code Status No, discussion no t w/Patient or Family? necessary based on Dx
--- OUTSIDE RECORDS SUMMARY | 2019-11-07 10:06 | XMS REPORT | Encounter Summary ---
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] P rocedures MS GLOSSECTOMY <ONE-HALF TONGUE MS CERVICAL LYMPHADEC MODIFIED RADICAL NECK DSJ MS SPLIT AGRFT T/A/L 1ST 100 CM/&/1% BDY INFT/CHLD GLOSSECTOMY LESS THAN ONE HALF TONGUE CERVICAL LYMPHADENECTOMY SPLIT THICKNESS SKIN AUTOGRAFT 100 SQ CM OR LESS OR 1% BODY AREA OF CHILD- UPPER EXTREMITY Encounter Details Care Team Description Date Type Department Lobo Garcia MD [address] [address] [phone] Sayra Leggett MD [address] [address] [phone] 05/09/2019 Anesthesia [facility] OR [facility] [place] [address] Anesthesia Record Responsible Anesthesiologist Anesthesia Start Time Anesthesi a Stop Time Procedure Name Lobo Garcia MD 05/09/19 0840 05/09/19 0955 GLOSSECTOMY LESS THAN ONE HALF TONGUE (Right ) Date Time Event Comment 820 0831 AN Equip Check 0840 Anes Start 0841 Out of Pre Procedure 0841 An Start Data 0841 In Room 0847 An Induction The patient was ree valuated immediately before moderate or deep sedation use and before anesthesia induction. 0849 An Intubation 0851 Anesthesia Ready 0855 Antibiotic Given 09 Proc Start 0950 An Extubation 4/4 TOF + sustained tetany. Spontaneous ventilation. OPA smoothly placed. Suctioned. Extubation criteria met. Ext ubated smoothly. O2 via facemask. VSS. 0952 an stop data 0954 Handoff to RN I completed my SBAR handoff to the receiving nurse. 0955 An Stop Meds Name Total fentaNYL PF (SUBLIMAZE) injection 25 mcg lidocaine (2%) 200 mg/10mL Injection 80 mg syringe propofol (DIPRIVAN) 200 mg/ 20 mL 130 mg injection (VIAL) succinylcholine (ANECTINE) injection 80 mg (VIAL) ondansetron (ZOFRAN) injection 4 mg dexamethasone (DECADRON) 4 mg/mL 4 mg injection propofol (DIPRIVAN) infusion 575.71 mg remifentanil (ULTIVA) 1 mg/3 mL 1,000 409.6 mcg mcg in sodium chloride 0.9% (NS) 20 mL Injection phenylephrine (VADIM-SYNEPHRINE) 0.1 mg/mL 300 mcg injection (SYRINGE) dextran 70/hypromellose (GENTEAL TEARS; 2 drop BION TEARS) ophthalmic solution ceFAZolin (ANCEF) injection 2 g albuterol (VENTOLIN HFA, PROAIR HFA) 6 puff inhaler lactated ringers infusion 600 mL * Name O2 N2O Inspired * No blood administrations on file. Removal Type Details Placement Wounds 02/15/18; 1651; Chin to Neck to Chest; 02/15/18 1651 by Anam (NOT for Surgical Incision; BILATERAL NECK- Ga CINTHIA melgoza Pressure BACITRACIN OINTMENT Injuries) Gastrostom 02/17/18; 1531; Left, Upper, Quadrant 02/17/18 1531 by Ryan Gomez RN Peripheral 04/15/19; 1350; IV Therapy; R; 9 1350 by ANNE Ricketts Posterior; Forearm; 22 G; No; 1; 1 Gurmeet sarah RN inches Wounds 05/09/19; 0907; Neck; Surgical Incision 05/09/19 0907 by Cyndi, (NOT for CINTHIA Jordan Pressure Injuries) Sabas 05/09/19; 0923; Right; Neck; 19 FR 0923 by Marilu Charles, CINTHIA Drain 05/10/19 1045 by Dawson Guevara RN Peripheral 05/09/19; 0720; RN; R; Posterior; 04/13 02/28 0720 by Austin IV Forearm; 20 G; N/A; 1; 05/10/19; 1045 CINTHIA Hussein 05/09/19 0950 by Zaida Clement, SENIOR COMMISSIONS ANALYST ETT 05/09/19; 0849; Ventilated by mask with 05/09/19 0849 by Urbano oral airway (2); Video laryngoscopy, Zaida Rossi CR NA Stylet; Single-Lumen, Cuffed; 7mm; GlideScope; 3; Oral; 1-Full view of the glottis; 1 insertion attempt; Auscultation, ETCO2 Detector; 21 centimeters; Atraumtic. Neck remained i n neutral position. No change in dentition.; 05/09/19; 0950 05/09/19 0954 by Janice Pond, CINTHIA Wounds 05/09/19; 0907; Tongue; 05/09/19; 0954; 05/09/19 0907 by Cyndi, (NOT for incision never made CINTHIA Jordan Pressure Injuries) documented in this encounter Social History Date Tobacco Use Types Packs/Day [...] history available. documented as of this encounter Functional Status Date of Assessment Functional Status Response 02/16/2018 Does the patient have a hearing impairment: No documented as of this encounter OR Notes * Anesthesia Postprocedure Evaluation - Lobo Garcia MD - 05/09/2019 11:16 AM CDT Post-Anesthesia Evaluation Name: Lona Coburn : 1950 Age: 68 y.o. Sex: female Procedure Date: 05/09/2019 Procedure: Procedure(s) with comments: GLOSSECTOMY LESS THAN ONE HALF TONGUE - CASE LENGTH 1 HOUR CERVICAL LYMPHADENECTOMY Surgeon: Surgeon(s): Hesham Russo MD Flynn, John, MD Post-Anesthesia Vitals BP: 142/79 (05/09 1100) Temp: (P) 36.4 C (97.5 F) (05/09 1112) Pulse: 73 (05/09 1115) Respirations: 12 PER MINUTE (05/09 1115) SpO2: 93 % (05/09 1115) SpO2 Pulse: 74 (05/09 1115) Post Anesthesia Evaluation Note Evaluation location: Pre/Post Patient participation: recovered; patient participated in evaluation Level of consciousness: alert Pain score: 0 Pain management: adequate Hydration: normovolemia Airway patency: adequate Perioperative Events Post-op nausea and vomiting: nausea; resolved Postoperative Status Cardiovascular status: hemodynamically stable Respiratory status: spontaneous ventilation Perioperative Events Perioperative Event: No Emergency Case Activation: No * Anesthesia Preprocedure Evaluation - Lobo Garcia MD - 05/09/2019 8:15 AM CDT Anesthesia Pre-Procedure Evaluation Name: Lona Coburn : 1950 Age: 68 y.o. Sex: female Procedure Date: 05/09/2019 Procedure: Procedure(s) with comments: GLOSSECTOMY LESS THAN ONE HALF TONGUE - CASE LENGTH 1 HOUR CERVICAL LYMPHADENECTOMY SPLIT THICKNESS SKIN AUTOGRAFT 100 SQ CM OR LESS OR 1% BODY AREA OF CHILD- UPPER EXTREMITY Physical Assessment Vital Signs (last filed in past 24 hours): BP: 137/71 (05/09 655) Temp: 36.8 C (98.3 F) (05/09 655) Pulse: 75 (05/09 655) Respirations: 13 PER MINUTE (05/09 655) SpO2: 97 % (05/09 655) Patient History Allergies Allergen Reactions Levaquin [Levofloxacin] SEE COMMENTS C Diff Rocephin [Ceftriaxone] HEADACHE, NAUSEA ONLY and DIZZINESS Current Medications Medication Directions albuterol (PROAIR HFA) 90 mcg/actuation inhaler Inhale 2 puffs by mouth into the lungs every 6 hours as needed for Wheezing or Shortness of Breath. Shake well b efore use. albuterol 0.5% (PROVENTIL) 2.5 mg/0.5 mL nebulizer solution Inhale 2.5 mg soluti on by nebulizer as directed every 8 hours as needed for Shortness of Breath or W heezing. aspirin EC 81 mg tablet Take 81 mg by mouth at bedtime daily. Take with food. cetirizine (ZYRTEC) 10 mg tablet Take 10 mg by mouth every morning. etanercept (ENBREL) 50 mg/mL (0.98 mL) injection Inject 50 mg under the skin monse ry 7 days. gabapentin (NEURONTIN) 300 mg capsule Take 300 mg by mouth twice daily. HYDROcodone/acetaminophen (NORCO) 10/325 mg tablet Take 1 tablet by mouth twice daily as needed for Pain montelukast (SINGULAIR) 10 mg tablet Take 10 mg by mouth at bedtime daily. pravastatin (PRAVACHOL) 20 mg tablet Take 20 mg by mouth at bedtime daily. sertraline (ZOLOFT) 50 mg tablet Take 50 mg by mouth daily. SPIRIVA RESPIMAT 2.5 mcg/actuation inhaler Inhale 1 puff by mouth into the lungs daily. SYMBICORT 160-4.5 mcg/actuation inhalation Inhale 2 puffs by mouth into the lung s twice daily. vitamins, multiple tablet Take 1 tablet by mouth daily. zolpidem (AMBIEN) 10 mg tablet Take 10 mg by mouth at bedtime daily. Review of Systems/Medical History Patient summary reviewed Nursing notes reviewed Pertinent labs reviewed Difficult IV access PONV Screening: Female gender and Non-smoker No history of anesthetic complications No family history of anesthetic complications Airway - negative Dysphagia (CVA and oral ca related) - chokes on liquids and solids. No hx of aspiration pneumonia Pulmonary Not a current smoker (quit 2015, 49 [facility]) Asthma (oon singulair) COPD (daily symbicort, spiriva, and albutrerol ) Pneumonia (hx recurrent pneumonia with multiple hospitalizations 2015-) No recent URI Home oxygen use (2L O2 NOC) No sleep apnea Consumer Lending Manager: Dr[facility] Sam[facility]els at [facility]. Last visit 04/18/19 with PFTs Cardiovascular Recent diagnostic studies: ECG Sinus rhtyhm. Rate 65. Abnormal R wave progression. Exercise tolerance: <4 METS (mostly sedentary. doesn't do much activity because pain, SOB, arthritis, etc.) Beta Olu therapy: No No hypertension, No palpitations (denies ) Dysrhythmias (ablation 2017 for PSVT) No angina PVD (PAD s/p right iliac stent, left partial foot amputation; carotid artery stenosis with occlusion of left ICA (scan in care everywhere)) Hyperlipidemia (statin) Dyspnea on exertion (has COPD) 81 mg ASA Dry Box Tender: Dr. Fong ([facility]). Last visit mid/late Mar 2019. Has jamey nnual visits. Stress test planned for Jul 2019. GI/Hepatic/Renal - negative No GERD, No hx of liver disease No renal disease Hx c.diff [id number] Neuro/Psych CVA (2014 CVA- residual right sided weakness, dysphagia and expressive aphas ia) Substance abuse (hx heavy alcohol abuse. 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 Neurological Findings: Alert and oriented x 3 Constitutional findings: No acute distress Well-developed Diagnostic Tests Hematology: Lab Results Component Value [...] No results found for: PT, PTT, INR Anesthesia Plan ASA score: 4 Plan: general Induction method: intravenous Informed Consent Anesthetic plan and risks discussed with patient. Use of blood products discussed with patient Plan discussed with: anesthesiologist and SENIOR COMMISSIONS ANALYST. LAB: CBC, CMP, T&S T&C DOS Dr. Fong for most recent OV note, stress, echo JUSTO: addy Lainez for most recent OV note and PFTs Consult: cardiac clearance requested form Dr. fong Addendum: " Cardiac risk for non-cardiac surgery is estimated to be intermediat e. It would be reasonable to proceed with necessary surgery. " Stress test 05/03/19 showed no evidence of any significant ischemia or infarctio n, normal regional wall motion, normal global LV function, EF 74% Carotid arterial disease. Complete occlusion of the left ICA, L carotid bifurca tion has prominent calcified plaque extending into the occluded L ICA, R carotid US 07/2018 showed mild R ICA disease. documented in this encounter Plan of Treatment Not on filedocumented as of this encounter Visit Diagnoses Not on filedocumented in this encounter Administered Medications Action Date Dose Rate Site Medication Order MAR Action 05/09/2019 9:47 AM CDT 6 puffs albuterol (PROAIR HFA, VENTOLIN HFA, Given PROVENTIL HFA) inhaler INTRA-PROCEDURE MED, Starting Thu05/09/19 at 0947, Until Thu05/09/19 at 1000, Anesthesia Intra-op 05/09/2019 8:55 AM CDT 2 g ceFAZolin (ANCEF) injection Given INTRA-PROCEDURE MED, Starting Thu05/09/19 at 0855, Until Thu05/09/19 at 0959, Anesthesia Intra-op 05/09/2019 8:58 AM CDT 4 mg dexamethasone (DECADRON) injection Given Intravenous, INTRA-PROCEDURE MED, Starting Thu05/09/19 at 0858, Until Mo n 05/09/19 at 0959, Anesthesia Intra-op 05/09/2019 8:49 AM CDT 2 drops dextran 70/hypromellose (GENTEAL TEARS) Given ophthalmic solution INTRA-PROCEDURE MED, Starting Thu05/09/19 at 0849, Until Thu05/09/19 at 0959, Anesthesia Intra-op 05/09/2019 9:40 AM CDT 25 mcg fentaNYL citrate PF (SUBLIMAZE) Given injection INTRA-PROCEDURE MED, Starting Thu05/09/19 at 0940, Until Thu05/09/19 at 0959, Anesthesia Intra-op 05/09/2019 8:35 AM CDT lactated ringers infusion Given - New 1,000 mL, 1,000 mL, Intravenous, at 20 Bag mL/hr, CONTINUOUS, Starting Thu 9 at 0700, Until Thu05/10/19 at 1319 1,000 mL 20 mL/hr Given - New Bag 05/09/2019 7:54 AM CDT 05/09/2019 8:47 AM CDT 80 mg lidocaine (PF) injection Given INTRA-PROCEDURE MED, Starting Thu05/09/19 at 0847, Until Thu05/09/19 at 0959, Anesthesia Intra-op 05/09/2019 9:42 AM CDT 4 mg ondansetron (ZOFRAN) injection Given Intravenous, INTRA-PROCEDURE MED, Starting Thu05/09/19 at 0942, Until Mo n 05/09/19 at 0959, Anesthesia Intra-op 05/09/2019 9:34 AM CDT 100 mcg phenylephrine in NS injection syringe Given Intravenous, INTRA-PROCEDURE MED, Starting 05/09/19 at 0902, Until Mo n 05/09/19 at 0959, Anesthesia Intra-op 100 mcg Given 05/09/2019 9:27 AM CDT 100 mcg Given 05/09/2019 9:02 AM CDT 05/09/2019 9:12 AM CDT 125 mcg/kg/min 65.2 mL/hr propofol (DIPRIVAN) infusion Dose/Rate 100 mL, Intravenous, INTRA-PROCEDURE Change MED(CONT), Starting 05/09/19 at 0847, Until 05/09/19 at 0959, Anesthesia Intra-op 150 mcg/kg/min 78.2 mL/hr Given - New Bag 05/09/2019 8:47 AM CDT 05/09/2019 9:07 AM CDT 30 mg propofol (DIPRIVAN) injection Given Intravenous, INTRA-PROCEDURE MED, Starting [facility] 05/09/19 at 0847, Until Mo n 05/09/19 at 0959, Anesthesia Intra-op 100 mg Given 05/09/2019 8:47 AM CDT 05/09/2019 9:17 AM CDT 0.1 mcg/kg/min 6.3 mL/hr remifentanil (ULTIVA) 1 mg/3 mL 1,000 Dose/Rate mcg in sodium chloride 0.9% (NS) 20 mL Change Injection Intravenous, INTRA-PROCEDURE MED(CONT), Starting 05/09/19 at 0847, Until Mo n 05/09/19 at 0959, Anesthesia Intra-op 0.12 mcg/kg/min 7.5 mL/hr Dose/Rate Change 05/09/2019 9:07 AM CDT 50 mcg Bolus 05/09/2019 9:04 AM CDT 05/09/2019 8:47 AM CDT 80 mg succinylcholine (ANECTINE) injection Given Intravenous, INTRA-PROCEDURE MED, Starting 05/09/19 at 0847, Until Mo n 05/09/19 at 0959, Anesthesia Intra-op documented in this encounter
--- OUTSIDE RECORDS SUMMARY | 2019-11-07 10:06 | XMS REPORT | Encounter Summary ---
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] P rocedures DE GLOSSECTOMY <ONE-HALF TONGUE DE CERVICAL LYMPHADEC MODIFIED RADICAL NECK DSJ DE SPLIT AGRFT T/A/L 1ST 100 CM/&/1% BDY INFT/CHLD GLOSSECTOMY LESS THAN ONE HALF TONGUE CERVICAL LYMPHADENECTOMY SPLIT THICKNESS SKIN AUTOGRAFT 100 SQ CM OR LESS OR 1% BODY AREA OF CHILD- UPPER EXTREMITY Encounter Details Care Team Description Date Type Department Gopi Mott MD [address] [facility] [address] [place], [place] [id number] Cancer of oral cavity (HCC) 05/09/2019 [facility] 05/10/2019 [address] [place] [address] Social History Date Tobacco Use Types Packs/Day [...] 05/10/19 0705/10/19 07 - 05/11/19 07 Shift 9230-6129 7770-1681 24 Hour Total 9847-2191 4668-3718 24 Hour Total INTAKE I.V.(mL/kg/hr) 800(0.7) 800 [...] cancer (HCC) 01/29/2018 PSVT (paroxysmal supraventricular tachycardia) ([facility]) 01/07/2018 Palpitations 01/07/2018 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 female POD#1 s/p right modified radical neck dissec tion. - Pain control adequate, continue current regimen - Stable on RA, HDS - Tolerating PO, on bowel regimen - Afebrile, no leukocytosis - SCD's, SQH, pepcid - Dispo: home this morning Kit Perez MD Otolaryngology Resident, PGY-3 [phone] For routine questions during weekday business hours, please page Dolores Blue at [phone]. All other questions and on weekends and nights ([phone]) page ENT on ca ll at [phone]. F PHARMACIST * Nory Ball RN - 05/09/2019 5:44 PM CDT Patient arrived to room # (2276) via bed accompanied by transport. Patient trans [...] gology-[facility] at [facility] f or follow-up of [id number] SCCa of right floor of mouth, s/p [...] unit cap Take 1 capsule by mo uth daily. etanercept (ENBREL) 50 mg/mL (0.98 mL) [...] advancement closure of neck 3x5cm Surgeon(s): Rafaela Telephone Quotation Clerk Surgeon(s): Evans Estimated Blood Loss: 50 cc Specimen(s): sent to pathology Findings: gross total resection of neck mass Oral cavity without any suspicious lesions Complications: None ATTESTATION I performed this procedure with a resident. Staff name: Gopi Mott MD Date: 05/09/2019 F PHARMACIST * Operative Report (Direct Entry) - Gopi [...] to confirm hemostasis. A si ngle 19 [place] Citizen HONEY drain was placed. The wound was [...] Mott MD 05/09/2019921 Dionisio Krueger MD Pager F PHARMACIST documented in this encounter Plan of Treatment [...] PATHOLOGY (05/09/2019 10:17 AM CDT) PATHOLOGY [email or web address] Department of Pathology and Laboratory Medicine [address] [place] [id number] Surgical Pathology Office: [phone] SURGICAL PATHOLOGY REPORT NAME: LONA ROLLINS SURG PATH #: [id number] MR #: [id number] SPECIMEN CLASS: [facility] BILLING #: [id number] ALT ID #: LOCATION: [id number] DATE OF PROCEDURE: 05/09/2019 AGE: 68 SEX: [...] lymph nodes are identified within the specimen. Digester Hand sections of the mass are submitted in cassettes A1-A4. (sc) sc/05/09/2019 Specimen Performing Organization Address [facility] Ph one Number [facility] [address] [place] [address] * TYPE & CROSSMATCH (05/09/2019 7:18 AM CDT) Units Ordered 0 [facility] Crossmatch 05/12/2019 [facility] Expires Record Check FOUND [facility] ABO/RH(D) A NEG [facility] Antibody Screen NEG [facility] Electronic YES [facility] Crossmatch Specimen Blood Performing Organization Address [facility] Ph one Number MAIN LAB [address] [place] [address] * TELEMETRY STRIPS-SCAN (05/09/2019 12:00 AM CDT) Narrative Performed At This result has an attachment that is n ot available. Ordered by an unspecified provider. documented in this encounter Visit Diagnoses Diagnosis Cancer of oral cavity (HCC) Malignant neoplasm of mouth, unspecifie d site Malignant neoplasm of mouth (HCC) Malignant neoplasm of mouth, unspecifie d site Tobacco abuse, in remission Personal history of tobacco use, presen ting hazards to health PAD (peripheral artery disease) (HCC) Peripheral vascular disease, unspecifie d Dry gangrene (HCC) Gangrene PSVT (paroxysmal supraventricular tachy cardia) (HCC) Paroxysmal supraventricular tachycardia Palpitations AVNRT (AV jovan re-entry tachycardia) ( HCC) Other specified cardiac dysrhythmias On home oxygen therapy Dependence on supplemental oxygen Lung nodules Other nonspecific abnormal finding of l cyn field documented in this encounter Administered Medications Action Date Dose Rate Site Medication Order MAR Action 05/09/2019 1:52 PM CDT 650 mg acetaminophen (TYLENOL) oral solution Given 650 mg 650 mg, Per NG tube, EVERY 4 HOURS PRN , Starting Thu05/09/19 at 1122, Until 05/10/19 at 1319, Pain [...] MIN PRN, Starting Thu05/09/19 at 0948, Until 05/09/19 at 1556, Pain Injectable, For Pain [...] 1 dose, Starting Thu05/09/19 at 0948, Until Mo n 05/09/19 at 1020, Other..., Nausea and [...]
--- OUTSIDE RECORDS SUMMARY | 2019-11-07 10:06 | XMS REPORT | Encounter Summary ---
Author Author [facility] Organization [facility] Address Unknown Phone Unavailable Care Team Providers Care Hydroelectric Powerplant Supervisor Name Role Phone RubinaDarling Domenica DO Unavailable Unavailable Herman CastrejonD Unavailable Unavailable Didi Louie APRN PCP Devin Samuels DO Unavailable Reason for Visit * Reason Comments Other Encounter Details Care Team Description Date Type Department Lorie Jacob PA-C [address] [place] [address] Other 05/19/2019 Telephone [facility] [address] [facility] [address] [place] [address] Social History Date Tobacco Use [...] impairment: No documented as of this encounter Miscellaneous Notes * Telephone Encounter - Lorie Jacob PA-C - 05/19/2019 3:27 PM ADMITTING COUNSELOR Spoke with Ratna, daughter, regarding recommendations from TB. Recommendations are for chemoradiation. Patient prefers location in [place], [place]. Is already e stablished with Rad Onc (but has not seen since most recent surgery). Informed t hem NN would call to set up these appointments. TTING COUNSELOR documented in this encounter Plan of Treatment Not on filedocumented as of this encounter Visit Diagnoses Not on filedocumented in this encounter
--- OUTSIDE RECORDS SUMMARY | 2019-11-07 10:06 | XMS REPORT | Encounter Summary ---
Author Author [facility] Organization [facility] Address Unknown Phone Unavailable Care Team Providers Care Mineral Economist Name Role Phone RubinaDarling Domenica DO Unavailable Unavailable Herman CastrejonD Unavailable Unavailable Didi Louie APRN PCP Devin Samuels DO Unavailable Reason for Visit * Reason Comments Follow-up Phone Call Encounter Details Care Team Description Date Type Department Lorie Jacob PA-C [address] [place] [address] Follow-up Phone Call 05/24/[address] [facility] [address] [place] [address] Social History Date Tobacco Use [...] Telephone Encounter - Lorie Jacob PA-C - 05/24/2019 3:12 PM FUNERAL HOME ASSOCIATE Spoke with patient and Jaclyn - they were under the impression that they were on ly to come today if there was a problem, patient's swelling has improved signifi cantly, as well as pain. Scheduled for Med onc on 06/01 and Rad onc on 06/08. Will follow with Dr. León 1 month s/p end of AT. RAL HOME ASSOCIATE documented in this encounter Plan of Treatment Not on filedocumented as of this encounter Visit Diagnoses Not on filedocumented in this encounter
--- OUTSIDE RECORDS SUMMARY | 2019-11-07 10:06 | XMS REPORT | Encounter Summary ---
Author Author [facility] Organization [facility] Address Unknown Phone Unavailable Care Team Providers Care Bullet Swaging Machine Operator Name Role Phone RubinaDarling Domenica DO Unavailable Unavailable Herman CastrejonD Unavailable Unavailable Didi Louie APRN PCP Devin Samuels DO Unavailable Reason for Visit * Reason Comments Navigation Follow Up Encounter Details Care Team Description Date Type Department Hesham Russo MD [address] [facility] [address] [place] [address] [phone] Navigation Follow Up 05/23/2019 Telephone [facility] [address] [address] Social History Date Tobacco Use Types Packs/Day [...] encounter Miscellaneous Notes * Telephone Encounter - Samara Beck RN - 05/23/2019 2:33 PM FLATWORK PRESSER Tumor Board Recommendation from 05/18/19, Oncology referral to Dr Tuttle (Med Onc) and and Dr Hewitt (Rad Onc) Location: Dr Tuttle on 06/01/19 at 8:[address] Guevara on 06/08/19- Olga schuster pt with these appt. Both at [facility] Pt informed and agrees with plan. I spoke with pt's daughter Ratna with the ab ove information. Samara Beck RN WORK PRESSER documented in this encounter Plan of Treatment Not on filedocumented as of this encounter Visit Diagnoses Not on filedocumented in this encounter
--- OUTSIDE RECORDS SUMMARY | 2019-11-07 10:06 | XMS REPORT | Encounter Summary ---
Author Author [facility] Organization [facility] Address Unknown Phone Unavailable Care Team Providers Care Catechist Name Role Phone RubinaDarling Domenica DO Unavailable Unavailable Herman CastrejonD Unavailable Unavailable Didi Louie APRN PCP Devin Samuels DO Unavailable Reason for Visit * Reason Comments Follow Up Encounter Details Care Team Description Date Type Department Lorie Jacob PA-C [address] [place] [address] Hesham Russo MD [address] [facility] [address] [place] [address] Oral cancer (HCC) (Primary Dx) 09/21/2019 Office Visit [facility] [address] [place] [address] Social History Date Tobacco Use [...] Pressure 66 09/21/2019 10:50 AM CDT Pulse - - Temperature - - Respiratory Rate - - Oxygen Saturation - - Inhaled Oxygen Concentration 79.4 kg (175 lb) 09/21/2019 10:50 AM CDT Weight 160 cm (5' 3") 09/21/2019 10:50 AM CDT Height 31 09/21/2019 10:50 AM CDT Body Mass Index documented in this encounter Functional Status Date of Assessment Functional Status Response 02/16/2018 Does the patient have a hearing impairment: No documented as of this encounter Progress Notes * Hesham Russo MD - 09/21/2019 10:45 AM CDT Date of Service: 09/21/2019 Chief Complaint Patient presents with Follow Up History of Present Illness: Lona Coburn is a 69 y.o. year old female evaluated on 09/21/2019, in the Otolaryn gology-Head [facility] Neck Surgery [facility] f or follow-up of [id number] SCCa of right floor of mouth, s/p FOM resection with beryl ateral neck dessection by Dr. Russo in 02/2018. She did not follow up as recom mended and subsequently developed a recurrence in her neck. She is now s/p a rig ht suprahyoid neck dissection, excision right neck skin cancer 3x5 cm, complex c losure right neck 3x5 cm on 05/09/19. She then underwent adjuvant SENIOR CORPORATE STRATEGY MANAGER and finish ed earlier this year. She has been sick on multiple occasions since that time wi th the flu and other URI's. No other issues or concerns since that time. Past Medical/Surgical History She has a past medical history of Alcoholism ([facility]), Anxiety disorder, Arthritis , Carotid artery stenosis, COPD with emphysema (HCC), Depression, High cholester ol, Neuropathy, Oral cancer (HCC), Pancreatitis (2003), PSVT (paroxysmal suprave ntricular tachycardia) ([facility]), Rheumatoid arthritis (HCC), Seasonal allergic reac tion, Skin cancer of eyelid, Stroke (HCC) (2014), and Tobacco abuse. Her has a past surgical history that includes appendectomy; tubal ligation; hip replacement (Right); ablation of dysrhythmic focus (01/2018); surgery; Foot Amp utation (Left); knee replacement (Right); lymphadenectomy (Bilateral, 02/15/2018); Neck surgery (N/A, 02/15/2018); Glossectomy (Right, 05/09/2019); and lymphadenect kaylie (Right, 05/09/2019). Past Family/Social History Her family history includes Gout in her brother and sister; Heart Attack in her mother. She reports that she quit smoking about 4 years ago. Her smoking use included c igarettes. She has a 50.00 pack-year smoking history. She has never used smokele ss tobacco. She reports that she does not drink alcohol or use drugs. Medications/Allergies/Immunizations Her current medication(s) include: Current Outpatient Medications Medication Sig Dispense Refill albuterol (PROAIR HFA) 90 mcg/actuation inhaler Inhale 2 puffs by mouth into the lungs every 6 hours as needed for Wheezing or Shortness of Breath. Shake we ll before use. albuterol 0.5% (PROVENTIL) 2.5 mg/0.5 mL nebulizer solution Inhale 2.5 mg so lution by nebulizer as directed every 8 hours as needed for Shortness of Breath or Wheezing. aspirin EC 81 mg tablet Take 81 mg by mouth at bedtime daily. Take with food . cetirizine (ZYRTEC) 10 mg tablet Take 10 mg by mouth every morning. docusate (COLACE) 100 mg capsule Take one capsule by mouth twice daily. 90 c apsule 0 etanercept (ENBREL) 50 mg/mL (0.98 mL) injection Inject 50 mg under the skin every 7 days. gabapentin (NEURONTIN) 300 mg capsule Take 300 mg by mouth twice daily. HYDROcodone/acetaminophen (NORCO) 10/325 mg tablet Take one tablet by mouth twice daily as needed for Pain Do not take when taking Oxycone 0 montelukast (SINGULAIR) 10 mg tablet Take 10 mg by mouth at bedtime daily. oxyCODONE (ROXICODONE) 1 mg/mL oral solution Take 5 mL by mouth every 4 hour s as needed 125 mL 0 pravastatin (PRAVACHOL) 20 mg tablet Take 20 [...] 10 mg by mouth at bedtime daily. No current facility-administered medications for this visit. [...] the HPI. PHYSICAL EXAM: Vital Signs: BP 125/79 | Pulse 66 | Ht 160 cm (63") | Wt 79.4 kg (175 lb) | BMI 31.00 kg/m General: Well-developed, well-nourished Communication and Voice: [...] Not visualized Neck, Trachea, Lymphatics: Midline trachea, Well healed neck incision Thyroid: No mass or nodularity Eyes: No nystagmus with equal extraocular motion bilaterally Neuro/Psych/Balance: Patient oriented and appropriate in interaction; Appropria te mood and affect; Patient in wheelchair; Cranial nerves I-XII are intact Respiratory effort: Equal inspiration and expiration without stridor PATHOLOGY REVIEW: No new path RADIOLOGIC REVIEW: No new imaging IMPRESSION: My impression is that Ms. Coburn has a history of T1N0M0 SCCa of right oral cavi ty that subsequently recurred and required right suprahyoid neck dissection, exc ision right neck skin cancer 3x5 cm, complex closure right neck 3x5 cm on followed by SENIOR CORPORATE STRATEGY MANAGER. YESY on exam today. PLAN: F/u in ENT clinic in 4 months I believe that Ms. Coburn has a [...] physician's documentation in bold where a ppropriate. Staff name: Hesham Russo MD * Karly Dupree - 09/21/2019 10:45 AM CDT Date of Service: 09/21/2019 Subjective: Lona Coburn is a 69 y.o. female. History of Present Illness Review of Systems Constitutional: Negative. HENT: Negative. Eyes: Negative. Respiratory: Negative. Cardiovascular: Negative. Gastrointestinal: Negative. Endocrine: Negative. Genitourinary: Negative. Musculoskeletal: Negative. Skin: Negative. Allergic/Immunologic: Negative. Neurological: Negative. Hematological: Negative. Psychiatric/Behavioral: Negative. Objective: albuterol (PROAIR HFA) 90 mcg/actuation inhaler Inhale 2 puffs by mouth into the lungs every 6 hours as needed for Wheezing or Shortness of Breath. Shake we ll before use. albuterol 0.5% (PROVENTIL) 2.5 mg/0.5 mL nebulizer solution Inhale 2.5 mg so lution by nebulizer as directed every 8 hours as needed for Shortness of Breath or Wheezing. aspirin EC 81 mg tablet Take 81 mg by mouth at bedtime daily. Take with food . cetirizine (ZYRTEC) 10 mg tablet Take 10 mg by mouth every morning. docusate (COLACE) 100 mg capsule Take one capsule by mouth twice daily. etanercept (ENBREL) 50 mg/mL (0.98 mL) injection Inject 50 mg under the skin every 7 days. gabapentin (NEURONTIN) 300 mg capsule Take 300 mg by mouth twice daily. HYDROcodone/acetaminophen (NORCO) 10/325 mg tablet Take one tablet by mouth twice daily as needed for Pain Do not take when taking Oxycone montelukast (SINGULAIR) 10 mg tablet Take 10 mg by mouth at bedtime daily. oxyCODONE (ROXICODONE) 1 mg/mL oral solution Take 5 mL by mouth every 4 hour s as needed pravastatin (PRAVACHOL) 20 mg tablet Take 20 [...] 10 mg by mouth at bedtime daily. Vitals: 09/21/19 1050 BP: 125/79 Pulse: 66 Weight: 79.4 kg (175 lb) Height: 160 cm (63") PainSc: Zero Body mass index is 31 kg/m. Physical Exam Assessment and Plan: * Francisca Schroeder RN - 09/21/2019 10:45 AM CDT Pre Visit Planning- Return Patient Last office visit note reviewed: Yes Records received: N/A Orders have been ordered Patient inactive in [facility]. Imaging: Yes Special Equipment: N/A CT NECK W/CONTRAST Narrative: CT Neck Clinical Indication: Female, 68 years old. Cancer of oral cavity Technique: Multiple contiguous axial images were obtained through the neck follo wing the administration of IV contrast material. Post processing coronal and sag ittal reconstruction images were made from the axial images. Comparison: CT neck June 11, 2018 Findings: Brain and Orbits: There is old encephalomalacia and gliosis within the left MCA territory with ex vacuo dilation of the left lateral ventricle. Imaged brain and orbits are otherwise normal. Sinuses and Mastoids: Normal. Suprahyoid Neck: There is stable ill-defined mucosal thickening/irregularity wit hin the right anterolateral floor of mouth. Normal nasal cavity, nasopharynx, or al cavity, oropharynx, parapharyngeal space, and retropharyngeal space. Infrahyoid Neck: Normal larynx and hypopharynx. Lymph Nodes: There is a new enhancing posterior right submandibular jovan metast asis measuring 2.3 x 2 cm (image 53 series 3). No additional pathologically enla rged or enlarging lymph nodes are identified, previously measuring up to 0.6 cm. Parotid and Submandibular Glands: Submandibular glands are surgically absent. Pa rotid glands are normal. New right submandibular space nodule as above. Thyroid: Normal in size with heterogeneous attenuation. Vasculature: Multifocal calcific atherosclerosis with persistent chronic occlusi on of the left cervical ICA origin. Osseous Structures: Cervical spondylosis results in multiple levels of at least mild central spinal stenosis and severe bilateral neural foraminal stenosis. No aggressive osseous lesions. Thoracic inlet: Mild emphysematous changes within the included lung apices. Ther e is a calcified right upper lobe granuloma. Persistent multistation subcentimet er mediastinal lymph nodes. Impression: 1. Interval development of a right submandibular jovan metastasis m easuring up to 2.3 cm. 2. Prior bilateral neck and anterior floor of mouth dissection without a discre te recurrent mucosal mass. 3. 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 4. Cervical spondylosis resulting in at least mild multilevel central spinal an d severe multilevel neural foraminal stenosis. Discussed with Dr. Russo by telephone at 3:18 PM 04/15/2019 Finalized by Dionisio Sheikh M.D. on 04/15/2019 3:18 PM. Dictated by Salud Echavarria on 04/15/2019 3:[address] CHEST W CONTRAST Narrative: CT CHEST W CONTRAST INDICATION: oral cancer Comparison: June 11, 2018. TECHNIQUE: Following the uneventful administration of intravenous contrast, axia l CT sections were obtained through the lungs and upper abdomen. Coronal and sag ittal multiplanar reconstructions were also obtained. FINDINGS: Heart and Mediastinum: The thyroid gland is of normal size and attenuation. No a xillary or supraclavicular lymphadenopathy. Stable conspicuous mediastinal lymph nodes. The heart and pericardium are within normal limits. Coronary artery and aortic calcification indicates atherosclerosis. Abdomen: Limited images through the upper abdomen show no abnormality of the vis ualized abdominal organs. Bones and Soft Tissues: Right rotator cuff muscle atrophy. There are thoracic sp ine degenerative changes. No suspicious lytic or blastic osseous lesion. Implant able loop recorder. Pleura: The pleural spaces are normal. Lungs and Airways: Mild to moderate centrilobular and paraseptal emphysema. Calc ified granulomas. Scattered linear bandlike subsegmental atelectasis and/or scar ring. Stable small pulmonary nodules. For example 3 mm left upper lobe subpleura l nodule image 19, 3 mm right middle lobe pulmonary nodule image 79 and 4 mm lef t lower lobe pulmonary nodule image 92 series 6. New 7 mm left lower lobe nodula r opacity image 98 series 6 with somewhat bandlike configuration on multiplanar reformats. Resolution of previously noted new right lower lobe nodule. Impression: 1. New 7 mm nodular opacity in the left lower lobe favored to repres ent nodular atelectasis given appearance on multiplanar reformats. Attention on 3 month follow-up CT or per clinical protocol to reassess. 2. Other pulmonary nodules are unchanged. No new or enlarging intrathoracic lymp h nodes. Finalized by Alfonso Toscano M.D. on 04/15/2019 2:10 PM. Dictated by Vitor Toscano M.D. on 04/15/2019 1:59 PM. documented in this encounter Plan of Treatment Not on filedocumented as of this encounter Visit Diagnoses Diagnosis Oral cancer (HCC) Malignant neoplasm of mouth, unspecifie d site documented in this encounter
--- OUTSIDE RECORDS SUMMARY | 2019-11-07 10:06 | XMS REPORT | Encounter Summary ---
Author Author [facility] Organization [facility] Address Unknown Phone Unavailable Care Team Providers Care Rating Examiner Name Role Phone RubinaDarling Domenica DO Unavailable Unavailable Herman CastrejonD Unavailable Unavailable Didi Louie APRN PCP Devin Samuels DO Unavailable Reason for Visit * Reason Comments Post Operative Visit Encounter Details Care Team Description Date Type Department Lorie Jacob PA-C [address] [place] [address] Oral cancer (HCC) (Primary Dx) 05/17/2019 Office Visit [facility] [address] [place] [address] Social History Date Tobacco Use [...] Signs Reading Time Taken Comments Vital Sign 119/73 05/17/2019 10:51 AM WEAPONS MECHANIC Blood Pressure 76 05/17/2019 10:51 AM WEAPONS MECHANIC Pulse - - Temperature - - Respiratory Rate - - Oxygen Saturation - - Inhaled Oxygen Concentration 81.6 kg (180 lb) 05/17/2019 10:51 AM WEAPONS MECHANIC Weight 160 cm (5' 3") 05/17/2019 10:51 AM WEAPONS MECHANIC Height 31.89 05/17/2019 10:51 AM WEAPONS MECHANIC Body Mass Index documented in this encounter Functional Status Date of Assessment Functional Status Response 02/16/2018 Does the patient have a hearing impairment: No documented as of this encounter Patient Instructions * Patient Instructions* Lorie Jacob PA-C - 05/17/2019 11:00 AM WEAPONS MECHANIC Scar Care 1. Beginning 2 weeks post operatively, use a scar care product such as Mederma, vitamin E oil, coconut oil or silicone scar strips/gel 2 times a day. 2. Massage the incision 4 times a day. You can go along the incision or massage in a circular fashion. This will help to desensitize the incision and break up s car tissue. 3. Wear sunscreen, SPF 30+, on the incision at all times. This helps to prevent darkening or reddening of the incision. These techniques are most effective during the first 2-3 months after surgery. For the swelling: - Apply a warm compress (warm wash cloth, heating pad on "low" setting) to the n kofi area for 10 minutes 3 times a day. Follow up in 1 week to check on surgical site. ONS MECHANIC documented in this encounter Progress Notes * Lorie Jacob PA-C - 05/17/2019 11:00 AM WEAPONS MECHANIC Date of Service: 05/17/2019 HPI: Lona Coburn was seen 05/17/2019 in the Head and Neck Surgery Clinic for postop follow up visit S/P excision of right neck cancer with suprahyoid neck di ssection by Dr. Russo on 05/09/19. She has a history of [id number] right FOM SC Ca, s/p excision without adjuvant treatment in 02/2018. Now 8 days out from most recent surgery. She is doing fairly well. Taking 5 mg oxycodone q 4 hours for p ain. Baseline on [place] prior to surgery, is not taking currently, as she is taki ng oxycodone and was told not to take both at once. PE: BP 119/73 | Pulse 76 | Ht 160 cm (63") | Wt 81.6 kg (180 lb) | BMI 31.89 kg/ m Physical exam including head and neck examination of the oral cavity and orophar ynx, as well as inspection and palpation of the face, parotid and neck is remark able for findings consistent with posttreatment postoperative changes and negati ve for new lesions, masses or lymphadenopathy. Healing well. No active infection . Airway is adequate. Right neck incision c/d/i. Sutures removed today without i ncident. Mild-moderate lymphedema vs post-surgical edema superior to incision an d in submental space - mobile. No overt fluid collection. No intraoral lesions. Final Diagnosis: A. Soft tissue, right neck, excision: Metastatic squamous cell carcinoma, poorly differentiated and keratinizing. No definitive lymph node parenchyma present. Comment: This may represent a soft tissue metastasis or complete replacement of a lymph node with extensive extranodal extension. IMPRESSION:Overall, Ms. Coburn is doing well and healing well s/p excision of ri ght neck cancer with suprahyoid neck dissection by Dr. Russo on 05/09/19. Pat hology consistent with metastatic SCCa poorly differentiated and keratinizing. H istory of [id number] SCCa right FOM, surgically resected by Dr. Russo in 02/2018 without adjuvant treatment. PLAN: Patient reviewed at tumor board. Recommendations are for adjuvant chemoradiation . Pain well controlled with oxycodone. One more refill provided to patient. 5 mL q 4 hours prn pain; disp 125 mL, no refills. No further prescriptions will be pro vided. F/U 1 week for incision check; will eventually follow up 1 month s/p AT with Dr. Russo. Will place warm compress and perform massage to assist with swelling. Will call if signs of infection, bleeding, or worsening swelling. Pathology reviewed with patient and a copy of their report was provided to them. Scar care reviewed with patient, instructions attached to AVS. ONS MECHANIC documented in this encounter Plan of Treatment Not on filedocumented as of this encounter Visit Diagnoses Diagnosis Oral cancer (HCC) Malignant neoplasm of mouth, unspecifie d site documented in this encounter
--- OUTSIDE RECORDS SUMMARY | 2019-11-07 10:06 | XMS REPORT | Encounter Summary ---
Author Author [facility] Organization [facility] Address Unknown Phone Unavailable Care Team Providers Care Vocational Education Professional Name Role Phone RubinaDarling Domenica DO Unavailable Unavailable Herman CastrejonD Unavailable Unavailable Didi Louie APRN PCP Devin Samuels DO Unavailable Reason for Visit * Reason Comments Other Encounter Details Care Team Description Date Type Department Lorie Jacob PA-C [address] [place] [address] Other 08/25/2019 Telephone [facility] [address] [facility] [address] [place] [address] Social History Date Tobacco Use [...] encounter Miscellaneous Notes * Telephone Encounter - Louise Black MA - 08/25/2019 11:55 AM SPEARER Daughter returned call completed radiation on 08/23, scheduled w/Dr. Russo on 09/20 @ 10:45 am, confirmed, v/u. RER * Telephone Encounter - Louise Black MA - 08/25/2019 10:43 AM SPEARER Lm for return call to get scheduled w/Dr. Russo 1 month after end of radiatio n date, request return call. RER documented in this encounter Plan of Treatment Not on filedocumented as of this encounter Visit Diagnoses Not on filedocumented in this encounter
--- OUTSIDE RECORDS SUMMARY | 2019-11-07 10:06 | XMS REPORT | Encounter Summary ---
Author Author [facility] Organization [facility] Address Unknown Phone Unavailable Care Team Providers Care Fur Matcher Name Role Phone RubinaDarling Domenica DO Unavailable Unavailable Herman CastrejonD Unavailable Unavailable Didi Louie APRN PCP Devin Samuels DO Unavailable Reason for Visit * Reason Comments Surgical Followup swelling Encounter Details Care Team Description Date Type Department Jacy Villegas MD [address] [place] [address] Surgical Followup (swelling) 05/15/2019 Telephone [facility] [address] [place] [address] Social History Date Tobacco Use [...] encounter Miscellaneous Notes * Telephone Encounter - Jacy Villegas MD - 05/15/2019 12:05 PM LOCATE TECHNICIAN Contacted by patient's 11/3 AM. He reports that she seems to have some s welling above the level of the incision under her chin around the middle of her neck. He first noted this yesterday but does not think the swelling has worsened since that time. The swelling seems diffuse (estimated as the size of a "golf b all," though the patient's denies that there is a discrete collection of fluid/swelling). The patient has no pain, bruising, or redness over the area, a nd her incision is dry and intact without drainage from the area. The patient do es not complain of any swelling inside her mouth, and her confirms that this area looks normal to him. The patient has no trouble breathing or swallowin g. She has had no fevers/chills. Patient's advised that swelling around the site of surgery can fluctuate and take time to resolve as the area heals. As the patient has no other symptoms associated with this and the swelling is curr ently stable, he was advised to monitor the area closely and watch for increase in size of the area or any of the symptoms discussed above. He expressed underst anding and will call back if new concerns arise, otherwise the patient will be s een in clinic on 05/17 as previously scheduled. TE TECHNICIAN documented in this encounter Plan of Treatment Not on filedocumented as of this encounter Visit Diagnoses Not on filedocumented in this encounter
--- NOTE | 2019-11-07 10:09 | ED EENT ---
History of Present Illness General Chief Complaint: Nasal Problems Stated Complaint: NOSE BLEED Nursing Triage Note: Pt to rm 6 by wheelchair with complaint of nosebleed. states started last night around 1999 and has been on and off since. nose is not currently bleeding at time of triage. per senior informatica developer, pt had passed a large blood clot group captain. Source: patient History of Present Illness Date Seen by Provider: Nov 07, 2019 Time Seen by Provider: 09:40 Initial Comments PT ARRIVES VIA POV FROM HOME C/O NOSEBLEED FROM LEFT NARE OFF AND ON SINCE 1999 LAST NIGHT NOT BLEEDING NOW NO PAIN NO INJURY, DENIES RUBBING, PICKING AT NOSE OR SNEEZING NO RECENT ILLNESS--NO COUGHING OR SNEEZING WAS HERE 11/05/19 FOR SAME--BLEEDING HAD STOPPED PRIOR TO ARRIVAL. NO TREATMENT DONE PT IS ON BLOOD THINNER (PT DOES NOT KNOW WHAT KIND/NAME OF MEDICATION) HAS HISTORY OF CVA WITH SOME EXPRESSIVE APHASIA AND RIGHT SIDE WEAKNESS ALSO HAS HISTORY OF ORAL CANCER HAD P.E. 08/16/19 AND HAS BEEN ON ELIQUIS PCP: [facility] ENT: DR. PHILLIPS Allergies and Home Medications Allergies Coded Allergies: ceftriaxone (Verified Allergy, Severe, DIFFICULTY BREATING, 07/05/19) levofloxacin (Verified Allergy, Severe, C-DIFF, 07/05/19) Home Medications Albuterol Sulfate 2.5 Mg/3 Ml Vial.neb, 2.5 MG NEB Q6H PRN for SHORTNESS OF BREATH, (Reported) Apixaban 5 Mg Tablet, 0 PEG UD 10 mg twice daily for 9 days, then 5 mg twice daily. Prescribed by: SATNAM MIKE on 08/18/19 1041 Aspirin 81 Mg Tab.chew, 81 MG PEG HS, (Reported) Budesonide/Formoterol Fumarate 10.2 Gm Hfa.aer.ad, 2 PUFF INH BID, (Reported) Cyclobenzaprine HCl 5 Mg Tablet, 5 MG PEG DAILY PRN for MUSCLE SPASMS, (Reported) Etanercept 50 Mg/1 Ml Syringe, 50 MG INJ We, (Reported) Fluconazole 100 Mg Tablet, 100 MG PEG DAILY Prescribed by: SATNAM MIKE on 08/18/19 1041 Gabapentin 250 Mg/5 Ml Solution, 6 ML PEG BID, (Reported) Hydrocodone/Acetaminophen 118 Ml Solution, 15 ML PEG BID, (Reported) L.acidoph & Paracasei,B.lactis 1 Each Capsule, 1 CAP PEG DAILY, (Reported) Montelukast Sodium 5 Mg Tab.chew, 10 MG PEG HS, (Reported) TAKES 2 (5MG) TABLETS Ondansetron 8 Mg Tab.rapdis, 8 MG PEG Q8H PRN for NAUSEA/VOMITING-1ST LINE, (Reported) Sertraline HCl 20 Mg/1 Ml Oral.conc, 2.5 ML PEG DAILY, (Reported) MIX WITH 4 OZ. ORANGE JUCIE, LEMONADE, AMBER ROBI, OR LEMON [place] SODA Tiotropium Ada 4 Gm Mist.inhal, 1 PUFF INH BID, (Reported) Zolpidem Tartrate 5 Mg Tablet, 5 MG PEG HS, (Reported) Patient Home Medication List Home Medication List Reviewed: Yes Review of Systems Review of Systems Constitutional: no symptoms reported; No dizziness Eyes: No Symptoms Reported Ears: No Symptoms Reported Nose: see HPI, epistaxis; denies pain, denies previous injury Mouth: no symptoms reported Throat: no symptoms reported Respiratory: no symptoms reported Cardiovascular: no symptoms reported Gastrointestinal: no symptoms reported Musculoskeletal: no symptoms reported Skin: no symptoms reported Neurological: See HPI, Pre-Existing Deficit Hematologic/Lymphatic: See HPI, Blood Clots, Easy Bleeding, Easy Bruising Immunological/Allergic: no symptoms reported Past Qraaczz-Ndgwut-Vtxsdi Hx Past Med/Social Hx: Reviewed and Corrections made Patient Social History Alcohol Use: Denies Use Recreational Drug Use: No Smoking Status: Former Smoker Type Used: Cigarettes Former Smoker, Quit: Jul 13, 2014 2nd Hand Smoke Exposure: No Recent Foreign Travel: No Contact w/Someone Who Travel: No Recent Infectious Disease Expo: No Recent Hopitalizations: No Immunizations Up To Date Tetanus Booster (TDap): Unknown PED Vaccines UTD: Yes Date of Pneumonia Vaccine: Jun 15, 2019 Date of Influenza Vaccine: Apr 12, 2018 Seasonal Allergies Seasonal Allergies: Yes Past Medical History Surgeries: Yes (heart ablation, mouth cancer, feeding tube,peripheral stents) Abdominal, Cardiac, Joint Replacement, Orthopedic, Vascular Surgery Respiratory: Yes (O2 3.5L NC AT NIGHT AND PRN;P.E. 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 ) Arthritis, Rheumatoid Arthritis Endocrine: No HEENT: Yes (GLASSES; ORAL CANCER-S/P SURGERY) Dysphagia, Tinnitis Loss of Vision: Bilateral Hearing Impairment: Denies Cancer: Yes Oral Did You Recieve Any Treatments: Yes What Type of Treatment Did You: Chemotherapy, Radiation, Surgical Intervention Psychosocial: Yes Sleep Difficulties, Anxiety, Depression Integumentary: No Blood Disorders: No Adverse Reaction/Blood Tranf: No (N/A) Family Medical History Cancer 09 SISTER Family history: Arthritis 09 BROTHER 09 SISTER Family history: Cardiovascular disease 09 SISTER Family history: Thyroid disorder 09 SISTER Malignant neoplasm of lung 09 SISTER Heart Disease Physical Exam Vital Signs Vital Signs - First Documented 11/07/19 09:39 Temp 37.0 Pulse 99 Resp 20 B/P (MAP) 137/76 (96) Pulse Ox 93 O2 Delivery Room Air Height, Weight, BMI Height: 5'2.00" Weight: 180lbs. 0.0oz. 81.841504om; 26.00 BMI Method:Actual General Appearance: WD/WN Eyes: bilateral eye normal inspection, bilateral eye PERRL, bilateral eye EOMI Ears: bilateral ear TM normal Nose: dried blood (IN LEFT NARE/ANTERIOR NASAL SEPTUM-DRIED BLOOD/FRESH CLOTS. NO ACTIVE BLEEDING AT THIS TIME. ) Mouth/Throat: other (DRIED BLOOD IN MOUTH/ON TONGUE AND IN POSTERIOR PHARYNX. NO ACTIVE BLEEDING AT THIS TIME. ) Cardiovascular: regular rate, rhythm, no murmur Respiratory: normal breath sounds Neurologic/Psychiatric: alert, normal mood/affect, other (EXPRESSIVE APHASIA/DYSPHASIA, MILD R SIDE WEAKNESS. ) Skin: normal color, warm/dry, ecchymosis (FROM PREVIOUS IV STICKS) Progress/Results/Core Measures Results/Orders Lab Results Laboratory Tests Test 11/07/19 10:05 Range/Units White Blood Count 21.3 H 4.3-11.0 10^3/uL Red Blood Count 3.54 L 4.35-5.85 10^6/uL Hemoglobin 11.5 11.5-16.0 G/DL Hematocrit 36 35-52 % Mean Corpuscular Volume 101 H 80-99 FL Mean Corpuscular Hemoglobin 33 25-34 PG Mean Corpuscular Hemoglobin Concent 32 32-36 G/DL Red Cell Distribution Width 13.6 10.0-14.5 % Platelet Count 384 130-400 10^3/uL Mean Platelet Volume 9.3 7.4-10.4 FL Neutrophils (%) (Auto) 85 H 42-75 % Lymphocytes (%) (Auto) 7 L 12-44 % Monocytes (%) (Auto) 8 0-12 % Eosinophils (%) (Auto) 1 0-10 % Basophils (%) (Auto) 0 0-10 % Neutrophils # (Auto) 18.1 H 1.8-7.8 X 10^3 Lymphocytes # (Auto) 1.4 1.0-4.0 X 10^3 Monocytes # (Auto) 1.7 H 0.0-1.0 X 10^3 Eosinophils # (Auto) 0.1 0.0-0.3 10^3/uL Basophils # (Auto) 0.0 0.0-0.1 10^3/uL Neutrophils % (Manual) 90 % Lymphocytes % (Manual) 4 % Monocytes % (Manual) 2 % Eosinophils % (Manual) 1 % Basophils % (Manual) 1 % Band Neutrophils 2 % Blood Morphology Comment NORMAL Prothrombin Time 16.7 H 12.2-14.7 SEC INR Comment 1.3 0.8-1.4 Activated Partial Thromboplast Time 37 H 24-35 SEC Sodium Level 139 135-145 MMOL/L Potassium Level 4.1 3.6-5.0 MMOL/L Chloride Level 103 98-107 MMOL/L Carbon Dioxide Level 25 21-32 MMOL/L Anion Gap 11 5-14 MMOL/L Blood Urea Nitrogen 14 7-18 MG/DL Creatinine 0.74 0.60-1.30 MG/DL Estimat Glomerular Filtration Rate > 60 BUN/Creatinine Ratio 19 Glucose Level 144 H 70-105 MG/DL Calcium Level 9.9 8.5-10.1 MG/DL Corrected Calcium 10.1 8.5-10.1 MG/DL Total Bilirubin 0.3 0.1-1.0 MG/DL Aspartate Amino Transf (AST/SGOT) 21 5-34 U/L Alanine Aminotransferase (ALT/SGPT) 21 0-55 U/L Alkaline Phosphatase 94 40-136 U/L Total Protein 8.3 H 6.4-8.2 GM/DL Albumin 3.8 3.2-4.5 GM/DL My Orders Orders - AVTAR WILDER DO Cbc With Automated Diff (11/07/19 09:42) Comprehensive Metabolic Panel (11/07/19 09:42) Protime With Inr (11/07/19 09:42) Partial Thromboplastin Time (11/07/19 09:42) Manual Differential (11/07/19 10:05) Clindamycin Injection (Cleocin Injection (11/07/19 10:45) Vital Signs/I&O 11/07/19 09:39 Temp 37.0 Pulse 99 Resp 20 B/P (MAP) 137/76 (96) Pulse Ox 93 O2 Delivery Room Air Blood Pressure Mean: 96 Progress Progress Note : Progress Note NO BLEEDING IN ER BLOOD CLEARED FROM MOUTH AND POSTERIOR PHARYNX WITH SWISHING AND GARGLING OF WATER--NO NEW BLEEDING Departure Communication (Admissions) 1037--CALLED DR. PHILLIPS'S OFFICE. SPOKE WITH WELDER ASSEMBLER Kaylee CORTES. SHE WILL SEE PT TODAY AT [place] OFFICE AT 12:45 (DR. PHILLIPS IS OUT OF OFFICE TODAY ) Impression Primary Impression: Epistaxis Additional Impressions: ELIQUIS THERAPY Leukocytosis Disposition: 01 HOME, SELF-CARE Condition: Stable Departure-Patient Inst. Referrals: SABINO PHILLIPS MD [facility] (PCP/Family) Primary Care Physician Patient Instructions: Nosebleeds (DC), White Blood Cell Count Differential Test Add. Discharge Instructions: DO NOT BLOW OR RUB OR PICK AT NOSE LOTS OF FLUIDS FOLLOW UP WITH DR. PHILLIPS'S WELDER ASSEMBLER TODAY AT [place] OFFICE AT 12:45--ARRIVE A FEW MINUTES EARLY TO CHECK IN All discharge instructions reviewed with patient and/or family. Voiced understanding. AVTAR WILDER DO Nov 07, 2019 10:09
[2019-11-07 10:11] LABS: BASOPHILS % (AUTO) 0 % (0-10); EOSINOPHILS # (AUTO) 0.1 10^3/uL (0.0-0.3); EOSINOPHILS % (AUTO) 1 % (0-10); HEMATOCRIT 36 % (35-52); HEMOGLOBIN 11.5 G/DL (11.5-16.0); LYMPHOCYTES # (AUTO) 1.4 X 10^3 (1.0-4.0); LYMPHOCYTES % (AUTO) 7 % (12-44); MEAN CORPUSCULAR HEMOGLOBIN 33 PG (25-34); MEAN CORPUSCULAR HGB CONC 32 G/DL (32-36); MEAN CORPUSCULAR VOLUME 101 FL (80-99); MEAN PLATELET VOLUME 9.3 FL (7.4-10.4); MONOCYTES # (AUTO) 1.7 X 10^3 (0.0-1.0); MONOCYTES % (AUTO) 8 % (0-12); NEUTROPHILS # (AUTO) 18.1 X 10^3 (1.8-7.8); NEUTROPHILS % (AUTO) 85 % (42-75); PLATELET COUNT 384 10^3/uL (130-400); RED CELL DISTRIBUTION WIDTH 13.6 % (10.0-14.5); WHITE BLOOD COUNT 21.3 10^3/uL (4.3-11.0)
--- OUTSIDE RECORDS SUMMARY | 2019-11-07 10:11 | XMS REPORT ---
Author Author Lona Kauffman Doctor Organization [facility] Address Unknown Phone Unavailable Care Team Providers Care Racing Manager Name Role Phone Migration, Doctor Unavailable Unavailable PROBLEMS Type Condition ICD9-CM Code [id number] Code Onset Dates Condition S tatus SNOMED Code Problem Dysphagia, unspecified dysphagia R13.10 Active 31700886 Problem History of cerebrovascular accident with current residual effects I69.90 Active 215734916 Problem Peripheral vascular disease, unspecified I73.9 Active 138053802 Problem Osteoarthritis of foot M19.079 Active 920082038 Problem 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 358637591 Problem COPD (chronic obstructive pulmonary disease) J44.9 Active 15058125 Problem Hypertension I10 Active 6353666 3 Problem Primary insomnia F51.01 Active 397 2004 Problem Hx of Clostridium difficile infection Z86.19 Active 303880882 Problem Chronic obstructive pulmon disease w acute lower resp infc t J44.0 Active 511420288 Problem History of arthroplasty of right knee Z96.651 Active 020288902 Problem Leg pain, left M79.605 Active 29083 7008 Problem Status post partial amputation of left foot Z89.43 2 Active 013676357 Problem Edema R60.9 Active 486365664 Problem Tobacco abuse, 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 Ac tive 164231436 Problem Anxiety F41.9 Active 17252488 Problem Chronic pain syndrome G89.4 Active 652040163 Problem Anemia, unspecified type D64.9 Activ e 679822825 Problem Depression, unspecified depression type F32.9 Active 14110524 Problem Other chronic pain G89.29 Active 8 0076649 Problem Iron deficiency anemia, unspecified iron deficiency an emia type D50.9 Active 13959037 Problem Insomnia, unspecified G47.00 Active 366194935 Problem Seasonal allergic rhinitis due to pollen J30.1 Active 47790474 Problem History of oral cancer Z85.819 Active 356837187 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 36 4200695 Problem Atrial fibrillation I48.91 Active 25705763 Problem Chronic obstructive pulmonary disease with (acute) exa cerbation J44.1 Active 527231308 Problem Rheumatoid arthritis M06.9 Active 67867636 Problem Dysthymia F34.1 Active 77489009 Problem Neuropathy G62.9 Active 850823684 Problem Rheumatoid arthritis with po sitive rheumatoid factor, involving unspecified site M05.9 Active 36699466 Problem Hemiplegia and hemiparesis f ollowing cerebral infarction affecting right dominant side I69.351 Active 894849952 Problem Cancer of neck C76.0 Active 35236 9000 ALLERGIES No Information ENCOUNTERS Encounter Location Date Diagnosis [facility] [address] [id number] [address] [place] [address] November, [facility] [address] [id number] [address] [place] [address] 13 Oct, 2019 Anxiety F41.9 [facility] [address] [facility] [id number] [address] [place] [address] 08 Oct, 2019 Thrush B37.0 [facility] [address] [facility] [id number] [address] [place] [address] 08 Oct, 2019 [facility] [address] [facility] [id number] [address] [place] [address] 30 Sep, 2019 Chronic pain syndrome G89.4 [facility] [address] [facility] [id number] [address] [place] [address] Sep, Chronic pain syndrome G89.4 and Rheumatoid arthritis with positive rheumatoid factor, involving unspecified site M05.9 [facility] [address] [facility] [id number] [address] [place] [address] 04 Sep, 2019 [facility] [address] [facility] [id number] [address] [place] [address] 28 Aug, 2019 Chronic pain syndrome G89.[address] [id number] [address] 19 Aug, 2019 Chronic obstructive pulmonar y disease with (acute) exacerbation J44.1 [facility] [address] [facility] [id number] [address] [place] [address] 12 Aug, 2019 Single subsegmental pulmonar y embolism without acute cor pulmonale I26.93 ; Rheumatoid arthritis with positive rheumatoid factor, involving unspecified site M05.9 ; Chronic pain syndrome G89.4 ; Leg pain, left M79.605 and 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 [facility] [address] [id number] [address] [place] [address] Aug, [facility] [address] [id number] [address] [place] [address] Aug, 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 [facility] [address] [id number] [address] [place] [address] 07 Aug, 2019 Chronic pain syndrome G89.4 [facility] [address] [id number] [address] [place] [address] Jul, Primary insomnia F51.01 [facility] [address] [id number] [address] [place] [address] Jul, Chronic pain syndrome G89.4 [facility] [address] [id number] [address] [place] [address] Jul, [facility] [address] [id number] [address] [place] [address] Jul, [facility] [address] [id number] [address] [place] [address] Jul, Rheumatoid arthritis with po sitive rheumatoid factor, involving unspecified site M05.9 and Chronic pain syndrome G89.4 [facility] [address] [id number] [address] [place] [address] Jul, [facility] [address] [id number] [address] [place] [address] Jun, Rheumatoid arthritis with po sitive rheumatoid factor, involving unspecified site M05.9 [facility] [address] [id number] [address] [place] [address] Jun, Chronic pain syndrome G89.4 ; Rheumatoid arthritis with positive rheumatoid factor, involving unspecified site M05.9 and Anxiety F41.9 [facility] [address] [id number] [address] [place] [address] Jun, [facility] [address] [id number] [address] [place] [address] Jun, Hemorrhoids, unspecified hem orrhoid type K64.9 [facility] [address] [id number] [address] [place] [address] Jun, Hemorrhoids, unspecified hem orrhoid type K64.9 ; Cancer of neck C76.0 and Drug-induced constipation K59.03 [facility] [address] [id number] [address] [place] [address] Jun, [facility] [address] [id number] [address] [place] [address] Jun, [facility] [address] [id number] [address] [place] [address] Jun, Rheumatoid arthritis with po sitive rheumatoid factor, involving unspecified site M05.9 [facility] [address] [id number] [address] [place] [address] May, [facility] [address] [id number] [address] [place] [address] May, Rheumatoid arthritis with po sitive rheumatoid factor, involving unspecified site M05.9 [facility] [address] [id number] [address] [place] [address] Apr, Primary insomnia F51.01 [facility] [address] [id number] [address] [place] [address] Apr, Rheumatoid arthritis with po sitive rheumatoid factor, involving unspecified site M05.9 [facility] [address] [id number] [address] [place] [address] Mar, [facility] [address] [id number] [address] [place] [address] Mar, [facility] [address] [id number] [address] [place] [address] Mar, Rheumatoid arthritis with po sitive rheumatoid factor, involving unspecified site M05.9 ; Atrial fibrillation I48.91 ; Chronic pain syndrome G89.4 ; Iron deficiency anemia, unspecified iron deficiency anemia type D50.9 and Hemiplegia and hemiparesis following cerebral infarction affecting right dominant side I69.351 [facility] [address] [facility] [id number] [address] [place] [address] Mar, Chronic pain syndrome G89.4 and Primary insomnia F51.01 [facility] [address] [facility] [id number] [address] [place] [address] Mar, Rheumatoid arthritis with po sitive rheumatoid factor, involving unspecified site M05.9 [facility] [address] [facility] [id number] [address] [place] [address] Feb, Rheumatoid arthritis with po sitive rheumatoid factor, involving unspecified site M05.9 ; Chronic pain syndrome G89.4 ; Atrial fibrillation I48.91 ; Iron deficiency anemia, unspecified iron deficiency anemia type D50.9 ; Hemiplegia and hemiparesis following cerebral infarction affecting right dominant side I69.351 and Primary insomnia F51.01 [facility] [address] [facility] [id number] [address] [place] [address] Feb, Chronic pain syndrome G89.4 [facility] [address] [id number] [address] [place] [address] Jan, Chronic pain syndrome G89.4 [facility] [address] [id number] [address] [place] [address] Jan, [facility] [address] [facility] [id number] [address] [place] [address] Jan, [facility] [address] [facility] [id number] [address] [place] [address] Dec, [facility] [address] [id number] [address] [place] [address] Dec, Chronic pain syndrome G89.4 [facility] [address] [id number] [address] [place] [address] Dec, [facility] [address] [id number] [address] [place] [address] November, Chronic pain syndrome G89.4 [facility] [address] [id number] [address] [place] [address] Oct, Chronic pain syndrome G89.4 [facility] [address] [id number] [address] [place] [address] Oct, [facility] [address] [facility] [id number] [address] [place] [address] Sep, Chronic pain syndrome G89.4 [facility] [address] [facility] [id number] [address] [place] [address] Sep, Leg pain, left M79.605 ; Rig ht leg pain M79.604 and Reactive cervical nodes R59.0 [facility] [address] [id number] [address] [place] [address] Sep, [facility] [address] [id number] [address] [place] [address] Sep, Neuropathy G62.9 [facility] [address] [facility] [id number] [place] [id number] Sep, [facility] [address] [facility] [id number] [address] [place] [address] Sep, Lymphadenopathy of left cerv ical region R59.0 [facility] [address] [facility] [id number] [address] [place] [address] Sep, Lymphadenopathy of left cerv ical region R59.0 and Neuropathy G62.9 [facility] [address] [id number] [address] [place] [address] Aug, Chronic pain syndrome G89.4 [place] [address] [facility] [id number] [address] [place] [address] Aug, [place] [address] [address] 04 Aug, 2018 Peripheral vascular disease, unspecified I73.9 ; Other chronic pain G89.29 ; Chronic obstructive pulmon disease w acute lower resp infct J44.0 and Primary insomnia F51.01 [place] [address] [address] Aug, Chronic pain syndrome G89.4 [place] [address] [address] Jul, Chronic pain syndrome G89.4 [place] [address] [address] Jun, Chronic pain syndrome G89.4 [place] [address] [address] May, Chronic pain syndrome G89.4 [facility] [address] [address] Apr, Cough R05 and Viral illness B34.9 [place] [address] [address] Apr, Encounter for immunization Z 23 [place] [address] [address] Apr, Chronic pain syndrome G89.4 [facility] [address] [place] [id number] [address] [place] [address] Apr, Left acute otitis media H66. 92 [place] [address] [address] Mar, Rheumatoid arthritis M06.9 ; Other chronic pain G89.29 ; History of oral cancer Z85.819 and History of tachycardia Z87.898 [place] [address] [place] [id number] [place] [address] 14 Mar, 2018 Chronic pain syndrome G89.4 [facility] [address] [id number] [address] [place] [address] 23 Feb, 2018 Chronic pain syndrome G89.4 [facility] [address] [id number] [address] [place] [address] Feb, Chronic pain syndrome G89.4 [facility] [address] [id number] [address] [place] [address] Jan, Chronic pain syndrome G89.4 [facility] [address] [id number] [address] [place] [address] Jan, [facility] [address] [id number] [address] [place] [address] Dec, Chronic pain syndrome G89.4 [facility] [address] [id number] [address] [place] [address] November, Chronic pain syndrome G89.4 [facility] [address] [id number] [address] [place] [address] November, [facility] [address] [id number] [address] [place] [address] Oct, Chronic pain syndrome G89.4 [facility] [address] [id number] [address] [place] [address] Oct, [facility] [address] [id number] [address] [place] [address] Oct, Chronic pain syndrome G89.4 [facility] [address] [id number] [address] [place] [address] Oct, [facility] [address] [id number] [address] [place] [address] Oct, [facility] [address] [id number] [address] [place] [address] Sep, Left upper quadrant pain R10 .12 ; Chronic pain syndrome G89.4 ; Left lower quadrant pain R10.32 ; Other chronic pain G89.29 ; Sacrococcygeal disorders, not elsewhere classified M53.3 and Seasonal allergic rhinitis due to pollen J30.1 [facility] [address] [id number] [address] [place] [address] Sep, Chronic pain syndrome G89.4 [facility] [address] [id number] [address] [place] [address] Sep, [facility] [address] [id number] [address] [place] [address] Aug, Chronic pain syndrome G89.4 [facility] [address] [id number] [address] [place] [address] Aug, [facility] [address] [facility] [id number] [address] [place] [address] Aug, Insomnia, unspecified G47.00 [facility] [address] [id number] [address] [place] [address] Jul, [facility] [address] [id number] [address] [place] [address] Jul, [facility] [address] [facility] [id number] [address] [place] [address] Jul, Chronic pain syndrome G89.4 [facility] [address] [facility] [id number] [address] [place] [address] Jun, Chronic pain syndrome G89.4 [facility] [address] [id number] [address] [place] [address] 04 Jun, 2017 Chronic pain syndrome G89.4 [facility] [address] [facility] [id number] [address] [place] [address] May, [facility] [address] [facility] [id number] [address] [place] [address] 08 May, 2017 Shortness of breath R06.02 ; Peripheral vascular disease, unspecified I73.9 ; Pain in right knee M25.561 ; Other chronic pain G89.29 ; Chest wall pain R07.89 ; Chronic pain syndrome G89.4 ; Primary insomnia F51.01 and Ear pain, left H92.02 [facility] [address] [facility] [id number] [address] [place] [address] May, Anxiety F41.9 [facility] [address] [facility] [id number] [address] [place] [address] Apr, Pneumonia due to infectious organism, unspecified laterality, unspecified part of lung J18.9 ; Hypoxia R09.02 ; Bradycardia R00.1 ; History of Clostridium difficile Z87.19 and Primary insomnia F51.01 [place] [address] [facility] [id number] [address] [place] [address] Apr, Anxiety F41.9 [place] [address] [place] [id number] [address] [place] [address] Apr, [place] [address] [facility] [id number] [address] [place] [address] Mar, Anxiety F41.9 [place] [address] [place] [id number] [address] [place] [address] Feb, [place] [address] [facility] [id number] [address] [place] [address] Feb, [place] [address] [facility] [id number] [address] [place] [address] Feb, Abnormal finding on urinalys is R82.90 [place] [address] [id number] [address] [place] [address] Feb, [place] [address] [facility] [id number] [address] [place] [address] Feb, Shortness of breath R06.02 ; Tachycardia R00.0 ; Cough R05 ; Ill feeling R68.89 and Abnormal finding on urinalysis R82.90 [place] [address] [facility] [id number] [address] [place] [address] Feb, Anxiety F41.9 [facility] [address] [facility] [id number] [address] [place] [address] Feb, Sore throat J02.9 and Acute diffuse otitis externa of left ear H60.312 [facility] [address] [facility] [id number] [address] [place] [address] Jan, [facility] [address] [facility] [id number] [address] [place] [address] Jan, [facility] [id number] [place] [id number] Jan, [facility] [address] [facility] [id number] [address] [place] [address] Jan, Depression, unspecified depr ession type F32.9 ; Chronic bronchitis, unspecified chronic bronchitis type J42 ; Chronic pain syndrome G89.4 and Anxiety F41.9 [facility] [address] [facility] [id number] [address] [place] [address] Jan, [facility] [address] [facility] [id number] [address] [place] [address] Jan, [facility] [address] [facility] [id number] [address] [place] [address] Jan, [facility] [id number] [place] [id number] Jan, Chronic pain syndrome G89.4 [employer] [address] [place] [id number] Dec History of right knee surgery Z98.890 [facility] [address] [facility] [id number] [address] [place] [address] Dec, [facility] [address] [facility] [id number] [address] [place] [address] Dec, Chronic pain syndrome G89.4 [facility] [address] [facility] [id number] [address] [place] [address] November, Anxiety F41.9 [facility] [address] [facility] [id number] [address] [place] [address] November, Acute cystitis without hemat uria N30.00 [facility] [address] [facility] [id number] [address] [place] [address] November, Fever, unspecified fever cau se R50.9 and Acute cystitis without hematuria N30.00 [facility] [address] [facility] [id number] [address] [place] [address] November, Chronic pain syndrome G89.4 [facility] [address] [facility] [id number] [address] [place] [address] Oct, Anxiety F41.9 [facility] [address] [facility] [id number] [address] [place] [address] Oct, Chronic pain syndrome G89.4 [facility] [address] [place] [id number] [address] [place] [id number] Oct, Chronic pain syndrome G89.4 [facility] [address] [facility] [id number] [address] [place] [address] Oct, [facility] [address] [place] [id number] [address] [place] [address] Oct, Chronic pain syndrome G89.4 ; Pain in right knee M25.561 ; History of Clostridium difficile Z87.19 ; Iron deficiency anemia, unspecified iron deficiency anemia type D50.9 ; Peripheral vascular disease, unspecified I73.9 and Atrial fibrillation I48.91 [facility] [address] [facility] [id number] [address] [place] [address] Oct, [facility] [address] [place] [id number] [address] [place] [address] Oct, Chronic pain syndrome G89.4 [facility] [address] [place] [id number] [address] [place] [address] Sep, [facility] [address] [place] [id number] [address] [place] [address] Sep, Depression, unspecified depr ession type F32.9 ; Chronic bronchitis, unspecified chronic bronchitis type J42 ; Chronic pain syndrome G89.4 and Anxiety F41.9 [employer] [address] [place] [id number] Sep History of Clostridium difficile infection Z86.19 and History of stroke Z86.73 [facility] [address] [id number] [id number] Sep, Anxiety F41.9 [facility] [address] [id number] [address] [place] [address] Sep, Chronic pain syndrome G89.4 [facility] [address] [facility] [id number] [address] [place] [address] Sep, [facility] [address] [id number] [id number] Sep, [facility] [address] [facility] [id number] [address] [place] [id number] 23 Aug, 2016 Anxiety F41.9 [facility] [address] [facility] [id number] [address] [place] [id number] 21 Aug, 2016 Anxiety F41.9 [facility] [address] [facility] [id number] [address] [place] [id number] 16 Aug, 2016 [facility] [address] [facility] [id number] [address] [place] [id number] 14 Aug, 2016 Acute knee pain, unspecified laterality M25.569 [facility] [address] [id number] [address] [place] [id number] 13 Aug, 2016 [facility] [address] [facility] [id number] [address] [place] [id number] 09 Aug, 2016 Chronic pain syndrome G89.4 [facility] [address] [facility] [id number] [address] [place] [id number] 08 Aug, 2016 [facility] [address] [facility] [id number] [address] [place] [id number] Aug, [facility] [address] [id number] [address] [place] [id number] Jul, [facility] [address] N [facility] [id number] [address] [place] [id number] Jul, Anxiety F41.9 [facility] [address] [facility] [id number] [address] [place] [address] Jul, Clostridium difficile diarrh ea A04.7 [employer] [address] [place] [id number] Jul Clostridium difficile diarrhea A04.7 ; Chronic pain syndrome G89.4 ; Chronic obstructive pulmon disease w acute lower resp infct J44.0 and Pain in right knee M25.561 [facility] [id number] [place] [id number] Jul, [facility] [address] [facility] [id number] [address] [place] [address] Jul, Anxiety F41.9 and Chronic pa in syndrome G89.4 [facility] [address] [id number] [address] [place] [address] Jun, Anxiety F41.9 [facility] [address] [id number] [address] [place] [address] Jun, Rheumatoid arthritis 714.0 [facility] [address] [id number] [address] [place] [address] Jun, Chronic pain syndrome G89.4 [facility] [address] [id number] [address] [place] [address] Jun, [facility] [address] [facility] [id number] [address] [place] [address] Jun, [facility] [address] [facility] [id number] [address] [place] [address] Jun, History of pneumonia Z87.01 and History of Clostridium difficile Z87.19 [facility] [address] [id number] [address] [place] [address] Jun, [facility] [address] [id number] [address] [place] [address] May, [facility] [address] [id number] [address] [place] [address] May, Anxiety F41.9 [facility] [address] [id number] [address] [place] [address] May, Chronic pain syndrome G89.4 [facility] [address] [id number] [address] [place] [address] May, Chronic bronchitis, unspecif ied chronic bronchitis type J42 [facility] [address] [id number] [address] [place] [address] May, [facility] [address] [id number] [address] [place] [address] May, C. difficile diarrhea A04.7 ; Peripheral edema R60.9 ; COPD (chronic obstructive pulmonary disease) J44.9 ; Rheumatoid arthritis, involving unspecified site, unspecified rheumatoid factor presence M06.9 ; Pain in right knee M25.561 ; Pain in left knee M25.562 and Other chronic pain G89.29 [facility] [address] [id number] [address] [place] [address] May, [facility] [address] [id number] [address] [place] [address] May, [facility] [address] [id number] [address] [place] [address] May, Anxiety F41.9 [facility] [address] [id number] [address] [place] [address] Apr, [facility] [address] [id number] [address] [place] [address] Apr, Chronic pain syndrome G89.4 [facility] [address] [facility] [id number] [address] [place] [address] Apr, Leg pain, left M79.605 [facility] [address] [facility] [id number] [address] [place] [address] 14 Apr, 2016 [facility] [address] [facility] [id number] [address] [place] [address] Apr, [facility] [address] [facility] [id number] [address] [place] [address] Apr, [facility] [address] [facility] [id number] [address] [place] [id number] 28 Mar, 2016 Chronic pain syndrome G89.4 [facility] [address] [facility] [id number] [address] [place] [address] 22 Mar, 2016 Acute frontal sinusitis, rec urrence not specified J01.10 [facility] [address] [facility] [id number] [address] [place] [id number] 20 Mar, 2016 Iron deficiency anemia, unsp ecified iron deficiency anemia type D50.9 ; Rheumatoid arthritis with positive rheumatoid factor, involving unspecified site M05.9 and Depression, unspecified depression type F32.9 [place] [address] [facility] [id number] [address] [place] [address] 13 Mar, 2016 Iron deficiency anemia, unsp ecified iron deficiency anemia type D50.9 ; Depression, unspecified depression type F32.9 and Rheumatoid arthritis with positive rheumatoid factor, involving unspecified site M05.9 [facility] [address] [facility] [id number] [address] [place] [address] Mar, [facility] [address] [facility] [id number] [address] [place] [address] Mar, [facility] [address] [facility] [id number] [address] [place] [address] Feb, Chronic pain syndrome G89.4 [facility] [address] [facility] [id number] [address] [place] [address] Feb, Status post partial amputati on of left foot Z89.432 ; Status post CVA Z86.73 ; Hemiplegia G81.90 and Anemia, unspecified type D64.9 [place] [address] [place] [id number] [address] [place] [address] Feb, [facility] [id number] [place] [address] Feb, Anemia, unspecified type D64 .9 [place] [address] [place] [id number] [address] [place] [address] Feb, [place] [facility] [address] [address] Feb, Iron deficiency anemia, unsp ecified iron deficiency anemia type D50.9 [place] [address] [place] [address] Feb, [place] [address] [place] [id number] [address] [place] [id number] Feb, Chronic bronchitis, unspecif ied chronic bronchitis type J42 [place] [address] [place] [id number] [address] [place] [address] Feb, Iron deficiency anemia, unsp ecified iron deficiency anemia type D50.9 [place] [address] [place] [address] Feb, Chronic pain syndrome G89.4 [place] [address] [place] [id number] [address] [place] [address] Feb, Anemia, unspecified type D64 .9 and Hypoxia R09.02 [place] [address] [place] [id number] [address] [place] [address] Feb, Anemia, unspecified type D64 .9 [place] [address] [place] [id number] [address] [place] [address] Jan, [place] [address] [place] [id number] [address] [place] [address] Jan, Anemia, unspecified type D64 .9 [facility] [address] [id number] [address] [place] [address] Jan, [facility] [address] [facility] [id number] [address] [place] [address] Jan, Anemia, unspecified type D64 .9 [facility] [address] [facility] [id number] [address] [place] [address] Jan, Anemia, unspecified type D64 .9 [facility] [address] [facility] [id number] [address] [place] [address] Jan, [facility] [address] [facility] [id number] [address] [place] [address] Jan, Anemia, unspecified type D64 .9 [facility] [address] [facility] [id number] [address] [place] [id number] Jan, [facility] [address] [facility] [id number] [address] [place] [address] Jan, [facility] [address] [facility] [id number] [address] [place] [address] Jan, Chronic pain syndrome G89.4 [facility] [address] [facility] [id number] [address] [place] [address] Jan, Anemia, unspecified type D64 .9 [facility] [address] [facility] [id number] [address] [place] [address] Jan, Dysthymia F34.1 ; Cervicalgi a M54.2 ; Fatigue, unspecified type R53.83 and Depression, unspecified depression type F32.9 [facility] [address] [facility] [id number] [address] [place] [address] Dec, [facility] [address] [facility] [id number] [address] [place] [address] Dec, Anxiety F41.9 [facility] [address] [place] [id number] [address] [place] [id number] 08 Dec, 2015 Chronic pain syndrome G89.4 [facility] [address] [address] November, [facility] [address] [place] [id number] [address] [place] [address] November, Edema R60.9 and Dizziness R4 2 [facility] [address] [address] November, [facility] [address] [address] November, [facility] [address] [address] November, COPD (chronic obstructive pu lmonary disease) J44.9 ; Increased tracheal secretions J39.8 and Edema R60.9 [facility] [address] [address] Oct, [facility] [address] [address] 28 Oct, 2015 Shortness of breath R06.02 a nd Edema R60.9 [facility] [address] [address] Oct, Chronic bronchitis, unspecif ied chronic bronchitis type J42 ; Peripheral vascular disease, unspecified I73.9 ; Rheumatoid arthritis M06.9 and Atrial fibrillation I48.91 [facility] [address] [place] [id number] [address] [place] [address] Oct, [facility] [address] [address] Oct, [facility] [address] [place] [id number] [place] [address] Oct, [facility] [address] [address] Oct, [facility] [address] [facility] [id number] [address] [place] [address] Oct, COPD exacerbation J44.1 [facility] [address] [facility] [id number] [address] [place] [address] Sep, [facility] [address] [facility] [id number] [address] [place] [address] Sep, [facility] [address] [facility] [id number] [address] [place] [address] Sep, [facility] [address] [facility] [id number] [address] [place] [address] Aug, [facility] [address] [facility] [id number] [address] [place] [address] Aug, 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 and P VD (peripheral vascular disease) I73.9 [facility] [address] [facility] [id number] [address] [place] [address] Aug, Bronchitis J40 ; COPD (chron ic obstructive pulmonary disease) J44.9 and Dysthymia F34.1 [facility] [address] [facility] [id number] [address] [place] [address] Aug, [facility] [address] [facility] [id number] [address] [place] [address] Jul, [facility] [address] [facility] [id number] [address] [place] [address] Jul, [facility] [address] [facility] [id number] [address] [place] [address] Jul, [facility] [address] [facility] [id number] [address] [place] [address] Jun, [facility] [address] [facility] [id number] [address] [place] [address] Jun, [facility] [address] [facility] [id number] [address] [place] [address] Jun, Peripheral vascular disease I73.9 [facility] [address] [id number] [address] [place] [address] Jun, [facility] [address] [id number] [address] [place] [address] Jun, [facility] [address] [facility] [id number] [address] [place] [address] Jun, Leg pain, left M79.605 ; Dys phagia, unspecified dysphagia R13.10 ; Insomnia, unspecified type G47.00 ; PVD (peripheral vascular disease) I73.9 and 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 [facility] [address] [id number] [address] [place] [address] May, [facility] [address] [id number] [address] [place] [address] May, [facility] [address] [id number] [address] [place] [address] May, [facility] [address] [id number] [address] [place] [address] May, [facility] [address] [id number] [address] [place] [address] May, [facility] [address] [id number] [address] [place] [address] Apr, [facility] [address] [id number] [address] [place] [address] Apr, [facility] [address] [id number] [address] [place] [address] Mar, [facility] [address] [id number] [address] [place] [address] Mar, [facility] [address] [id number] [address] [place] [address] Feb, [facility] [address] [id number] [address] [place] [address] Feb, Nicotine abuse 305.1 ; Arthr algia 719.40 and 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 [facility] [address] [id number] [address] [place] [address] Feb, [facility] [address] [id number] [address] [place] [address] Jan, [facility] [address] [facility] [id number] [address] [place] [address] Jan, [facility] [address] [facility] [id number] [address] [place] [address] Jan, [facility] [address] [facility] [id number] [address] [place] [address] Jan, [facility] [address] [facility] [id number] [address] [place] [address] Jan, 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 ; Rhe umatoid arthritis 714.0 ; Hypertension 401.9 ; GERD (gastroesophageal reflux disease) 530.81 ; Nicotine addiction 305.1 and Leukocytosis 288.60 [facility] [address] [facility] [id number] [address] [place] [address] Jan, [facility] [address] [facility] [id number] [address] [place] [id number] Jan, [facility] [address] [facility] [id number] [address] [place] [id number] Jan, [facility] [address] [facility] [id number] [address] [place] [address] Jan, [facility] [address] [facility] [id number] [address] [place] [address] Jan, [facility] [address] [facility] [id number] [address] [place] [address] Dec, [facility] [address] [facility] [id number] [address] [place] [address] Dec, [facility] [address] [facility] [id number] [address] [place] [address] Dec, [facility] [address] [place] [id number] [place] [address] Dec, [facility] [address] [facility] [id number] [address] [place] [address] November, [facility] [address] [place] [id number] [place] [address] November, [facility] [address] [place] [id number] [address] [place] [address] November, Shortness of breath 786.05 [facility] [address] [address] November, Rheumatoid arthritis 714.0 [facility] [address] [address] November, 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 [facility] [address] [place] [id number] [address] [place] [address] November, Neuropathy 355.9 ; Insomnia 780.52 ; Dysthymia 300.4 ; Shortness of breath 786.05 ; Rheumatoid arthritis 714.0 and Nausea 787.02 [facility] [address] [place] [id number] [address] [place] [address] November, [facility] [address] [facility] [id number] [address] [place] [address] November, [facility] [address] [place] [id number] [address] [place] [address] Oct, [facility] [address] [place] [id number] [place] [address] Oct, [facility] [address] [place] [id number] [address] [place] [address] Oct, [facility] [address] [place] [id number] [address] [place] [address] Oct, [facility] [address] [id number] [address] [place] [address], [place] [address] Sep, [facility] [address] [id number] [address] [place] [address], [place] [address] Sep, [facility] [address] [id number] [address] [place] [address], [place] [address] Sep, [facility] [address] [id number] [address] [place] [address], [place] [address] Sep, [facility] [address] [id number] [address] [place] [address], [place] [address] Sep, [facility] [address] [id number] [address] [place] [address], [place] [address] Sep, [facility] [address] [id number] [address] [place] [address], [place] [address] Sep, [facility] [address] [id number] [address] [place] [address], [place] [address] Sep, [facility] [address] [id number] [address] [place] [address], [place] [address] Aug, [facility] [address] [id number] [address] [place] [address], [place] [address] Aug, [facility] [address] [id number] [address] [place] [address], [place] [address] Aug, [facility] [address] [id number] [address] [place] [address] Aug, [facility] [address] [id number] [address] [place] [address], [place] [address] Aug, [facility] [address] [id number] [address] [place] [address], [place] [address] Aug, [facility] [address] [id number] [address] [place] [address], [place] [address] Jul, [facility] [address] [id number] [address] [place] [address], [place] [address] Jul, [facility] [address] [id number] [address] [place] [address], [place] [address] Jul, [facility] [address] [id number] [address] [place] [address], [place] [address] Jul, [facility] [address] [id number] [address] [place] [address], [place] [address] Jul, [facility] [address] [id number] [address] [place] [address], [place] [address] Jul, [facility] [address] [id number] [address] [place] [address], [place] [address] Jul, [facility] [address] [id number] [address] [place] [address], [place] [address] Jul, [facility] [address] [id number] [address] [place] [address], [place] [address] Jul, [facility] [address] [id number] [address] [place] [address], [place] [address] Jul, [facility] [address] [id number] [address] [place] [address], [place] [address] Jun, [facility] [address] [id number] [address] [place] [address], [place] [address] Jun, [facility] [address] [id number] [address] [place] [address], [place] [address] Jun, [facility] [address] [id number] [address] [place] [address], [place] [address] Jun, [facility] [address] [id number] [address] [place] [address], [place] [address] Jun, [facility] [address] [id number] [address] [place] [address], [place] [address] Jun, [facility] [address] [id number] [address] [place] [address], [place] [address] Jun, [facility] [address] [id number] [address] [place] [address], [place] [address] Jun, [facility] [address] [id number] [address] [place] [address], [place] [address] Jun, [facility] [address] [id number] [address] [place] [address], [place] [address] Jun, [facility] [address] [id number] [address] [place] [address], [place] [address] Jun, [facility] [address] [id number] [address] [place] [address], [place] [address] Jun, [facility] [address] [id number] [address] [place] [address], [place] [address] Jun, [facility] [address] [id number] [address] [place] [address], [place] [address] Jun, [facility] [address] [id number] [address] [place] [address], [place] [address] Jun, [facility] [address] [id number] [address] [place] [address], [place] [address] Jun, [facility] [address] [id number] [address] [place] [address], [place] [address] May, [facility] [address] [id number] [address] [place] [address], [place] [address] May, [facility] [address] [id number] [address] [place] [address], [place] [address] May, [facility] [address] [id number] [address] [place] [address], [place] [address] May, [facility] [address] [id number] [address] [place] [address], [place] [address] May, [facility] [address] [id number] [address] [place] [address], [place] [address] May, [facility] [address] [id number] [address] [place] [address] May, [facility] [address] [id number] [address] [place] [address], [place] [address] May, [facility] [address] [id number] [address] [place] [address] May, [facility] [address] [id number] [address] [place] [address], [place] [address] Apr, [facility] [address] [id number] [address] [place] [address] Apr, [facility] [address] [id number] [address] [place] [address], [place] [address] Apr, [facility] [address] [id number] [address] [place] [address] Apr, [facility] [address] [id number] [address] [place] [address] Apr, [facility] [address] [id number] [address] [place] [address] Apr, [facility] [address] [id number] [address] [place] [address] Apr, [facility] [address] [id number] [address] [place] [address] Apr, [facility] [address] [address] [id number] [address] [place] [address] Apr, [facility] [address] [id number] [address] [place] [address] Apr, [facility] [address] [id number] [address] [place] [address] Apr, [facility] [address] [id number] [address] [place] [address] Apr, [facility] [address] [id number] [address] [place] [address], [place] [address] Mar, [facility] [address] [id number] [address] [place] [address] 22 Mar, 2013 [facility] [address] [id number] [address] [place] [address] Mar, 2013 [facility] [address] [id number] [facility] [place] [address] Mar, 2013 [facility] [address] [id number] [facility] [place] [address] Mar, 2013 [facility] [address] [id number] [facility] [place] [address] Mar, 2013 [facility] [address] [id number] [address] [place] [address], [place] [address] Mar, 2013 [facility] [address] [id number] [address] [place] [address], [place] [address] Mar, 2013 [facility] [address] [id number] [address] [place] [address], [place] [address] Mar, 2013 [facility] [address] [id number] [address] [place] [address], [place] [address] Mar, [facility] [address] [id number] [address] [place] [address], [place] [address] Feb, [facility] [address] [id number] [address] [place] [address], [place] [address] Feb, [facility] [address] [id number] [address] [place] [address], [place] [address] Feb, [facility] [address] [id number] [address] [place] [address], [place] [address] Feb, [facility] [address] [id number] [address] [place] [address], [place] [address] Feb, [facility] [address] [id number] [address] [place] [address], [place] [address] Feb, [facility] [address] [id number] [address] [place] [address], [place] [address] Feb, [facility] [address] [id number] [address] [place] [address] Feb, [facility] [address] [id number] [address] [place] [address] Feb, [facility] [address] [id number] [address] [place] [address] Feb, [facility] [address] [id number] [address] [place] [address], [place] [address] Feb, [facility] [address] [id number] [address] [place] [address], [place] [address] Feb, [facility] [address] [id number] [address] [place] [address], [place] [address] Feb, [facility] [address] [id number] [address] [place] [address], [place] [address] Feb, [facility] [address] [id number] [address] [place] [address], [place] [address] Feb, [facility] [address] [id number] [address] [place] [address], [place] [address] Feb, [facility] [address] [id number] [address] [place] [address], [place] [address] Jan, [facility] [address] [id number] [address] [place] [address], [place] [address] Jan, [facility] [address] [id number] [address] [place] [address], [place] [address] Jan, [facility] [address] [id number] [address] [place] [address], [place] [address] Jan, [facility] [address] [id number] [address] [place] [address], [place] [address] Jan, [facility] [address] [id number] [address] [place] [address], [place] [address] Jan, [facility] [address] [id number] [address] [place] [address], [place] [address] Dec, [facility] [address] [id number] [address] [place] [address], [place] [address] Dec, [facility] [address] [id number] [address] [place] [address], [place] [address] Dec, [facility] [address] [id number] [address] [place] [address], [place] [address] Dec, [facility] [address] [id number] [address] [place] [address], [place] [address] Dec, [facility] [address] [id number] [address] [place] [address], [place] [address] Dec, [facility] [address] [id number] [address] [place] [address], [place] [address] Dec, [facility] [address] [id number] [address] [place] [address], [place] [address] Dec, [facility] [address] [id number] [address] [place] [address], [place] [address] November, [facility] [address] [id number] [address] [place] [address], [place] [address] November, [facility] [address] [id number] [address] [place] [address], [place] [address] November, [facility] [address] [id number] [address] [place] [address], [place] [address] November, [facility] [address] [id number] [address] [place] [address], [place] [address] November, [facility] [address] [id number] [address] [place] [address], [place] [address] November, [facility] [address] [id number] [address] [place] [address], [place] [address] Oct, [facility] [address] [id number] [address] [place] [address], [place] [address] Oct, [facility] [address] [id number] [address] [place] [address] Oct, [facility] [address] [id number] [address] [place] [address], [place] [address] Oct, [facility] [address] [id number] [address] [place] [address], [place] [address] Sep, [facility] [address] [id number] [address] [place] [address], [place] [address] Sep, [facility] [address] [id number] [address] [place] [address], [place] [address] Sep, [facility] [address] [id number] [address] [place] [address], [place] [address] Sep, [facility] [address] [id number] [address] [place] [address], [place] [address] Sep, [facility] [address] [id number] [address] [place] [address], [place] [address] Sep, [facility] [address] [id number] [address] [place] [address], [place] [address] Aug, [facility] [address] [id number] [address] [place] [address], [place] [address] Aug, [facility] [address] [id number] [address] [place] [address], [place] [address] Aug, [facility] [address] [id number] [address] [place] [address], [place] [address] Aug, [facility] [address] [id number] [address] [place] [address], [place] [address] Aug, [facility] [address] [id number] [address] [place] [address], [place] [address] Aug, [facility] [address] [id number] [address] [place] [address], [place] [address] Jul, [facility] [address] [id number] [address] [place] [address], [place] [address] Jul, [facility] [address] [id number] [address] [place] [address], [place] [address] Jul, [facility] [address] [id number] [address] [place] [address], [place] [address] Jul, [facility] [address] [id number] [address] [place] [address], [place] [address] Jul, [facility] [address] [id number] [address] [place] [address], [place] [address] Jul, [facility] [address] [id number] [address] [place] [address], [place] [address] Jul, [facility] [address] [id number] [address] [place] [address], [place] [address] Jul, [facility] [address] [id number] [address] [place] [address], [place] [address] Jul, [facility] [address] [id number] [address] [place] [address], [place] [address] Jul, [facility] [address] [id number] [address] [place] [address], [place] [address] Jul, [facility] [address] [id number] [address] [place] [address], [place] [address] Jul, [facility] [address] [id number] [address] [place] [address], [place] [address] Jul, [facility] [address] [id number] [address] [place] [address], [place] [address] Jul, [facility] [address] [id number] [address] [place] [address], [place] [address] Jul, [facility] [address] [id number] [address] [place] [address], [place] [address] Jun, [facility] [address] [id number] [address] [place] [address], [place] [address] Jun, [facility] [address] [id number] [address] [place] [address], [place] [address] Jun, [facility] [address] [id number] [address] [place] [address], [place] [address] Jun, [facility] [address] [id number] [address] [place] [address], [place] [address] May, [facility] [address] [id number] [address] [place] [address], [place] [address] May, [facility] [place] [address] [id number] [place] [id number] May, [facility] [address] [id number] [address] [place] [address], [place] [address] May, [facility] [address] [id number] [address] [place] [address], [place] [address] May, [facility] [address] [id number] [address] [place] [address], [place] [address] May, [facility] [address] [id number] [address] [place] [address], [place] [address] May, [facility] [address] [id number] [address] [place] [address], [place] [address] May, [facility] [address] [id number] [address] [place] [address], [place] [address] May, [facility] [place] [address] [id number] [place] [id number] May, [facility] [address] [id number] [address] [place] [address], [place] [address] May, [facility] [place] [address] [id number] [place] [id number] May, [facility] [address] [id number] [address] [place] [address], [place] [address] May, [facility] [place] [address] [id number] [place] [id number] May, [facility] [address] [id number] [address] [place] [address] May, IMMUNIZATIONS No Known Immunizations SOCIAL HISTORY Never Assessed REASON FOR VISIT PLAN OF CARE VITAL SIGNS Blood pressure systolic 116 mmHg 2014-04-13 Blood pressure diastolic 68 mmHg 2014-04-13 MEDICATIONS Unknown Medications RESULTS No Results PROCEDURES No Known procedures INSTRUCTIONS MEDICATIONS ADMINISTERED No Known Medications MEDICAL (GENERAL) HISTORY Type Description Date Medical History Arthritis Medical History peripheral vascular disease Medical History tachycardia (PSVT) Electrophysiology st udies done [facility] 01/2018 Medical History chronic obstructive pulmonar y disease (COPD) PFT 11/2014 Mod to severe restrictive disease Medical History pancreatitis Medical History hyperlipidemia Medical History rheumatoid arthritis Medical History [facility] Medical History stress test 12/22/2013 [facility] EF 52% (Ajit )05/2016 WNL Medical History CVA 12/2014 Echo - [facility] [place] tids show complete stenosis on left and mod on left. 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 Surgical History g tube placement Failed swallow study Surgical History loop placement 03/2018 Surgical History colonoscopy 01/31/16 Surgical History removal of right neck cancer [facility] 02/10 8 Surgical History removal of cancer in neck 04/30 Surgical History port placement 04/30 Surgical History Peg tube placement 07/08/19 Hospitalization History amputation transmetatarsal Hospitalization History hip replacement Hospitalization History CVA 12/2014 Hospitalization History Exacerbation COPD 10/23/15 Hospitalization History Diarrhea, leukocytosis--[facility] 01/08/16 Hospitalization History pseudomemranous colitis, sepsis--[facility] 04/21/2016 Hospitalization History C Diff--[facility] 05/10/2016 Hospitalization History sepsis, pneumonia, diarrhea--[facility] Hospitalization History recurrent cdiff, pneumonia-[facility] Hospitalization History sepsis,pneumonia- [facility] 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
--- OUTSIDE RECORDS SUMMARY | 2019-11-07 10:11 | XMS REPORT ---
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 816469411 Problem COPD (chronic obstructive pulmonary disease) J44.9 Active 63377348 Problem Hypertension I10 Active 1743243 3 Problem Primary insomnia F51.01 Active 397 2004 Problem Hx of Clostridium difficile infection Z86.19 Active 454096524 Problem Chronic obstructive pulmon disease w acute lower resp infc t J44.0 Active 029941365 Problem History of arthroplasty of right knee Z96.651 Active 011083969 Problem Leg pain, left M79.605 Active 91815 7008 Problem Status post partial amputation of left foot Z89.43 2 Active 562765989 Problem Edema R60.9 Active 064561667 Problem Tobacco abuse, 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 Ac tive 498631572 Problem Anxiety F41.9 Active 20222178 Problem Chronic pain syndrome G89.4 Active 889670826 Problem Anemia, unspecified type D64.9 Activ e 558095552 Problem Depression, unspecified depression type F32.9 Active 53138634 Problem Other chronic pain G89.29 Active 8 0317032 Problem Iron deficiency anemia, unspecified iron deficiency an emia type D50.9 Active 56057988 Problem Insomnia, unspecified G47.00 Active 539293361 Problem Seasonal allergic rhinitis due to pollen J30.1 Active 00441583 Problem History of oral cancer Z85.819 Active 513241939 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 36 9207508 Problem Atrial fibrillation I48.91 Active 34718652 Problem Chronic obstructive pulmonary disease with (acute) exa cerbation J44.1 Active 930620927 Problem Rheumatoid arthritis M06.9 Active 41760638 Problem Dysthymia F34.1 Active 01508005 Problem Neuropathy G62.9 Active 167085983 Problem Rheumatoid arthritis with po sitive rheumatoid factor, involving unspecified site M05.9 Active 27148294 Problem Hemiplegia and hemiparesis f ollowing cerebral infarction affecting right dominant side I69.351 Active 679012636 Problem Cancer of neck C76.0 Active 38166 9000 ALLERGIES No Information ENCOUNTERS Encounter Location Date Diagnosis [facility] [address] [facility] [id number] [address] [place] [phone] November, [facility] [address] [facility] [id number] [address] [place] [phone] 13 Oct, 2019 Anxiety F41.9 [facility] [address] [facility] [id number] [address] [place] [phone] 08 Oct, 2019 Thrush B37.0 [facility] [address] [facility] [id number] [address] [place] [phone] 08 Oct, 2019 [facility] [address] [facility] [id number] [address] [place] [phone] Sep, Chronic pain syndrome G89.4 [facility] [address] [facility] [id number] [address] [place] [phone] Sep, Chronic pain syndrome G89.4 and Rheumatoid arthritis with positive rheumatoid factor, involving unspecified site M05.9 [facility] [address] [facility] [id number] [address] [place] [phone] 04 Sep, 2019 [facility] [address] 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 [facility] [address] [id number] [address] [place] [phone] Aug, [facility] [address] [id number] [address] [place] [phone] Aug, 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 [facility] [address] [id number] [address] [place] [phone] Aug, Chronic pain syndrome G89.4 [place] [id number] [id number] [address] [place] [phone] Jul, Primary insomnia F51.01 [facility] [address] [id number] [address] [place] [phone] Jul, Chronic pain syndrome G89.4 [facility] [address] [id number] [address] [place] [id number] Jul, [facility] [address] [id number] [address] [place] [address] Jul, [facility] [address] [id number] [address] [place] [phone] Jul, Rheumatoid arthritis with po sitive rheumatoid factor, involving unspecified site M05.9 and Chronic pain syndrome G89.4 [facility] [address] [id number] [address] [place] [phone] Jul, [facility] [address] [facility] [id number] [address] [place] [phone] Jun, Rheumatoid arthritis with po sitive rheumatoid factor, involving unspecified site M05.9 [facility] [address] [id number] [address] [place] [phone] Jun, Chronic pain syndrome G89.4 ; Rheumatoid arthritis with positive rheumatoid factor, involving unspecified site M05.9 and Anxiety F41.9 [facility] [address] [id number] [address] [place] [phone] Jun, [facility] [address] [id number] [address] [place] [phone] Jun, Hemorrhoids, unspecified hem orrhoid type K64.9 [facility] [address] [id number] [address] [place] [phone] Jun, Hemorrhoids, unspecified hem orrhoid type K64.9 ; Cancer of neck C76.0 and Drug-induced constipation K59.03 [facility] [address] [id number] [address] [place] [address] Jun, [facility] [address] [id number] [address] [place] [phone] Jun, [facility] [address] [id number] [address] [place] [address] Jun, Rheumatoid arthritis with po sitive rheumatoid factor, involving unspecified site M05.9 [facility] [address] [id number] [address] [place] [phone] May, [facility] [address] [id number] [address] [place] [address] May, Rheumatoid arthritis with po sitive rheumatoid factor, involving unspecified site M05.9 [facility] [address] [id number] [address] [place] [address] Apr, Primary insomnia F51.01 [facility] [address] [id number] [address] [place] [address] Apr, Rheumatoid arthritis with po sitive rheumatoid factor, involving unspecified site M05.9 [facility] [address] [id number] [address] [place] [phone] Mar, [facility] [address] [id number] [address] [place] [id number] Mar, [facility] [address] [id number] [address] [place] [phone] Mar, Rheumatoid arthritis with po sitive rheumatoid factor, involving unspecified site M05.9 ; Atrial fibrillation I48.91 ; Chronic pain syndrome G89.4 ; Iron deficiency anemia, unspecified iron deficiency anemia type D50.9 and Hemiplegia and hemiparesis following cerebral infarction affecting right dominant side I69.351 [facility] [address] [id number] [address] [place] [address] Mar, Chronic pain syndrome G89.4 and Primary insomnia F51.01 [place] [address] [facility] [id number] [address] [place] [phone] Mar, Rheumatoid arthritis with po sitive rheumatoid factor, involving unspecified site M05.9 [facility] [address] [id number] [address] [place] [phone] Feb, Rheumatoid arthritis with po sitive rheumatoid factor, involving unspecified site M05.9 ; Chronic pain syndrome G89.4 ; Atrial fibrillation I48.91 ; Iron deficiency anemia, unspecified iron deficiency anemia type D50.9 ; Hemiplegia and hemiparesis following cerebral infarction affecting right dominant side I69.351 and Primary insomnia F51.01 [facility] [address] [facility] [id number] [address] [place] [address] Feb, Chronic pain syndrome G89.4 [facility] [address] [id number] [address] [place] [phone] Jan, Chronic pain syndrome G89.4 [facility] [address] [facility] [id number] [address] [place] [phone] Jan, [facility] [address] [facility] [id number] [address] [place] [address] Jan, [facility] [address] [id number] [address] [place] [phone] Dec, [facility] [address] [id number] [address] [place] [phone] Dec, Chronic pain syndrome G89.4 [facility] [address] [id number] [address] [place] [phone] Dec, [facility] [address] [facility] [id number] [address] [place] [address] November, Chronic pain syndrome G89.4 [facility] [address] [id number] [address] [place] [address] Oct, Chronic pain syndrome G89.4 [facility] [address] [id number] [address] [place] [phone] Oct, [facility] [address] [facility] [id number] [address] [place] [phone] Sep, Chronic pain syndrome G89.4 [facility] [address] [id number] [address] [place] [phone] Sep, Leg pain, left M79.605 ; Rig ht leg pain M79.604 and Reactive cervical nodes R59.0 [facility] [address] [facility] [id number] [address] [place] [phone] Sep, [facility] [address] [facility] [id number] [address] [place] [phone] Sep, Neuropathy G62.9 [facility] [address] [id number] [place] [id number] Sep, [facility] [address] [facility] [id number] [address] [place] [phone] Sep, Lymphadenopathy of left cerv ical region R59.0 [facility] [address] [facility] [id number] [address] [place] [phone] 04 Sep, 2018 Lymphadenopathy of left cerv ical region R59.0 and Neuropathy G62.9 [facility] [address] [facility] [id number] [address] [place] [phone] Aug, Chronic pain syndrome G89.4 [facility] [address] [facility] [id number] [address] [place] [phone] Aug, [facility] [address] [facility] [id number] [address] [place] [phone] Aug, Peripheral vascular disease, unspecified I73.9 ; Other chronic pain G89.29 ; Chronic obstructive pulmon disease w acute lower resp infct J44.0 and Primary insomnia F51.01 [facility] [address] [place] [id number] [address] [place] [phone] Aug, Chronic pain syndrome G89.4 [facility] [address] [place] [id number] [address] [place] [phone] Jul, Chronic pain syndrome G89.4 [place] [address] [address] Jun, Chronic pain syndrome G89.4 [facility] [address] [place] [id number] [address] [place] [address] May, Chronic pain syndrome G89.4 [facility] [address] [place] [id number] [address] [place] [phone] Apr, Cough R05 and Viral illness B34.9 [place] [address] [place] [id number] [address] [place] [phone] Apr, Encounter for immunization Z 23 [facility] [address] [facility] [id number] [address] [place] [phone] Apr, Chronic pain syndrome G89.4 [facility] [address] [place] [id number] [address] [place] [phone] Apr, Left acute otitis media H66. 92 [facility] [address] [place] [id number] [address] [place] [phone] Mar, Rheumatoid arthritis M06.9 ; Other chronic pain G89.29 ; History of oral cancer Z85.819 and History of tachycardia Z87.898 [facility] [address] [id number] [address] [place] [phone] 14 Mar, 2018 Chronic pain syndrome G89.4 [facility] [address] [id number] [address] [place] [phone] Feb, Chronic pain syndrome G89.4 [facility] [address] [id number] [address] [place] [id number] Feb, Chronic pain syndrome G89.4 [facility] [address] [id number] [address] [place] [phone] Jan, Chronic pain syndrome G89.4 [facility] [address] [id number] [address] [place] [phone] Jan, [facility] [address] [id number] [address] [place] [phone] Dec, Chronic pain syndrome G89.4 [facility] [address] [id number] [address] [place] [phone] November, Chronic pain syndrome G89.4 [facility] [address] [id number] [address] [place] [phone] November, [facility] [address] [id number] [address] [place] [phone] Oct, Chronic pain syndrome G89.4 [facility] [address] [id number] [address] [place] [phone] Oct, [facility] [address] [id number] [address] [place] [address] Oct, Chronic pain syndrome G89.4 [facility] [address] [id number] [address] [place] [address] Oct, [facility] [address] [id number] [address] [place] [phone] Oct, [facility] [address] [facility] [id number] [address] [place] [address] Sep, Left upper quadrant pain R10 .12 ; Chronic pain syndrome G89.4 ; Left lower quadrant pain R10.32 ; Other chronic pain G89.29 ; Sacrococcygeal disorders, not elsewhere classified M53.3 and Seasonal allergic rhinitis due to pollen J30.1 [facility] [address] [id number] [address] [place] [phone] Sep, Chronic pain syndrome G89.4 [facility] [address] [id number] [address] [place] [phone] Sep, [facility] [address] [facility] [id number] [address] [place] [phone] Aug, Chronic pain syndrome G89.4 [facility] [address] [facility] [id number] [address] [place] [phone] Aug, [facility] [address] [facility] [id number] [address] [place] [address] Aug, Insomnia, unspecified G47.00 [facility] [address] [id number] [address] [place] [phone] Jul, [facility] [address] [facility] [id number] [address] [place] [address] Jul, [facility] [address] [facility] [id number] [address] [place] [address] Jul, Chronic pain syndrome G89.4 [facility] [address] [facility] [id number] [address] [place] [phone] Jun, Chronic pain syndrome G89.4 [facility] [address] [facility] [id number] [address] [place] [address] Jun, Chronic pain syndrome G89.4 [facility] [address] [facility] [id number] [address] [place] [phone] May, [facility] [address] [facility] [id number] [address] [place] [address] May, Shortness of breath R06.02 ; Peripheral vascular disease, unspecified I73.9 ; Pain in right knee M25.561 ; Other chronic pain G89.29 ; Chest wall pain R07.89 ; Chronic pain syndrome G89.4 ; Primary insomnia F51.01 and Ear pain, left H92.02 [facility] [address] [facility] [id number] [address] [place] [address] May, Anxiety F41.9 [place] [address] [id number] [address] [place] [address] Apr, Pneumonia due to infectious organism, unspecified laterality, unspecified part of lung J18.9 ; Hypoxia R09.02 ; Bradycardia R00.1 ; History of Clostridium difficile Z87.19 and Primary insomnia F51.01 [place] [address] [place] [id number] [address] [place] [phone] Apr, Anxiety F41.9 [place] [address] [id number] [address] [place] [phone] Apr, [place] [address] [id number] [address] [place] [phone] Mar, Anxiety F41.9 [place] [address] [facility] [facility] [id number] [address] [place] [phone] Feb, [place] [address] [facility] [id number] [address] [place] [phone] Feb, [place] [address] [facility] [facility] [id number] [address] [place] [id number] Feb, Abnormal finding on urinalys is R82.90 [place] [address] [facility] [facility] [id number] [address] [place] [phone] Feb, [place] [address] [facility] [facility] [id number] [address] [place] [phone] Feb, Shortness of breath R06.02 ; Tachycardia R00.0 ; Cough R05 ; Ill feeling R68.89 and Abnormal finding on urinalysis R82.90 [facility] [address] [facility] [id number] [address] [place] [phone] Feb, Anxiety F41.9 [facility] [address] [facility] [id number] [address] [place] [phone] Feb, Sore throat J02.9 and Acute diffuse otitis externa of left ear H60.312 [facility] [address] [facility] [id number] [address] [place] [phone] Jan, [facility] [address] [facility] [id number] [address] [place] [phone] Jan, [facility] [id number] [place] [id number] Jan, [facility] [address] [facility] [id number] [address] [place] [address] Jan, Depression, unspecified depr ession type F32.9 ; Chronic bronchitis, unspecified chronic bronchitis type J42 ; Chronic pain syndrome G89.4 and Anxiety F41.9 [facility] [address] [facility] [id number] [address] [place] [phone] Jan, [facility] [address] [facility] [id number] [address] [place] [phone] Jan, [facility] [address] [facility] [id number] [address] [place] [phone] Jan, [facility] [address] [id number] [place] [id number] Jan, Chronic pain syndrome G89.4 [employer] [facility] [address] [place] [id number] Dec History of right knee surgery Z98.890 [facility] [address] [facility] [id number] [address] [place] [id number] Dec, [facility] [address] [facility] [id number] [address] [place] [phone] Dec, Chronic pain syndrome G89.4 [facility] [address] [id number] [address] [place] [phone] November, Anxiety F41.9 [facility] [address] [id number] [address] [place] [phone] 16 Nov, 2016 Acute cystitis without hemat uria N30.00 [facility] [address] [id number] [address] [place] [phone] November, Fever, unspecified fever cau se R50.9 and Acute cystitis without hematuria N30.00 [facility] [address] [id number] [address] [place] [id number] November, Chronic pain syndrome G89.4 [facility] [address] [facility] [id number] [address] [place] [phone] Oct, Anxiety F41.9 [place] [id number] [facility] [id number] [address] [place] [phone] Oct, Chronic pain syndrome G89.4 [facility] [address] [id number] [address] [place] [phone] Oct, Chronic pain syndrome G89.4 [facility] [address] [facility] [id number] [address] [place] [phone] Oct, [facility] [address] [facility] [id number] [address] [place] [phone] Oct, Chronic pain syndrome G89.4 ; Pain in right knee M25.561 ; History of Clostridium difficile Z87.19 ; Iron deficiency anemia, unspecified iron deficiency anemia type D50.9 ; Peripheral vascular disease, unspecified I73.9 and Atrial fibrillation I48.91 [facility] [address] [facility] [id number] [address] [place] [phone] Oct, [facility] [address] [facility] [id number] [address] [place] [phone] Oct, Chronic pain syndrome G89.4 [facility] [address] [facility] [id number] [address] [place] [phone] Sep, [facility] [address] [facility] [id number] [address] [place] [phone] Sep, Depression, unspecified depr ession type F32.9 ; Chronic bronchitis, unspecified chronic bronchitis type J42 ; Chronic pain syndrome G89.4 and Anxiety F41.9 [facility] [address] [place] [id number] Sep History of Clostridium difficile infection Z86.19 and History of stroke Z86.73 [facility] [address] [id number] [id number] Sep, Anxiety F41.9 [facility] [address] [facility] [id number] [address] [place] [phone] Sep, Chronic pain syndrome G89.4 [facility] [address] [facility] [id number] [address] [place] [phone] Sep, [facility] [address] [id number] [id number] Sep, [facility] [address] [facility] [id number] [address] [place] [phone] Aug, Anxiety F41.9 [facility] [address] [facility] [id number] [address] [place] [phone] Aug, Anxiety F41.9 [facility] [address] [facility] [id number] [address] [place] [phone] 16 Aug, 2016 [facility] [address] [facility] [id number] [address] [place] [phone] 14 Aug, 2016 Acute knee pain, unspecified laterality M25.569 [facility] [address] [facility] [id number] [address] [place] [phone] 13 Aug, 2016 [facility] [address] [facility] [id number] [address] [place] [phone] 09 Aug, 2016 Chronic pain syndrome G89.4 [facility] [address] [facility] [id number] [address] [place] [phone] Aug, [facility] [address] [id number] [address] [place] [phone] Aug, [facility] [address] [facility] [id number] [address] [place] [phone] Jul, [facility] [address] [facility] [id number] [address] [place] [phone] Jul, Anxiety F41.9 [facility] [address] [facility] [id number] [address] [place] [phone] Jul, Clostridium difficile diarrh ea A04.7 [employer] [address] [place] [id number] Jul Clostridium difficile diarrhea A04.7 ; Chronic pain syndrome G89.4 ; Chronic obstructive pulmon disease w acute lower resp infct J44.0 and Pain in right knee M25.561 [facility] [id number] [place] [id number] Jul, [facility] [address] [facility] [id number] [address] [place] [phone] Jul, Anxiety F41.9 and Chronic pa in syndrome G89.4 [facility] [address] [facility] [id number] [address] [place] [phone] Jun, Anxiety F41.9 [facility] [address] [facility] [id number] [address] [place] [phone] Jun, Rheumatoid arthritis 714.0 [facility] [address] [facility] [id number] [address] [place] [phone] Jun, Chronic pain syndrome G89.4 [facility] [address] [facility] [id number] [address] [place] [phone] Jun, [facility] [address] [facility] [id number] [address] [place] [phone] Jun, [facility] [address] [id number] [address] [place] [phone] Jun, History of pneumonia Z87.01 and History of Clostridium difficile Z87.19 [facility] [address] [id number] [address] [place] [phone] Jun, [facility] [address] [id number] [address] [place] [phone] May, [facility] [address] [id number] [address] [place] [phone] May, Anxiety F41.9 [facility] [address] [id number] [address] [place] [phone] May, Chronic pain syndrome G89.4 [facility] [address] [id number] [address] [place] [phone] May, Chronic bronchitis, unspecif ied chronic bronchitis type J42 [facility] [address] [id number] [address] [place] [phone] May, [facility] [address] [id number] [address] [place] [phone] May, C. difficile diarrhea A04.7 ; Peripheral edema R60.9 ; COPD (chronic obstructive pulmonary disease) J44.9 ; Rheumatoid arthritis, involving unspecified site, unspecified rheumatoid factor presence M06.9 ; Pain in right knee M25.561 ; Pain in left knee M25.562 and Other chronic pain G89.29 [facility] [address] [id number] [address] [place] [phone] May, [facility] [address] [id number] [address] [place] [phone] May, [facility] [address] [id number] [address] [place] [phone] May, Anxiety F41.9 [facility] [address] [id number] [address] [place] [phone] Apr, [facility] [address] [id number] [address] [place] [phone] Apr, Chronic pain syndrome G89.4 [facility] [address] [id number] [address] [place] [id number] Apr, Leg pain, left M79.605 [facility] [address] [id number] [address] [place] [phone] Apr, [facility] [address] [id number] [address] [place] [phone] Apr, [facility] [address] [id number] [address] [place] [phone] Apr, [facility] [address] [id number] [address] [place] [phone] 28 Mar, 2016 Chronic pain syndrome G89.4 [facility] [address] [id number] [address] [place] [id number] Mar, Acute frontal sinusitis, rec urrence not specified J01.10 [facility] [address] [id number] [address] [place] [phone] 20 Mar, 2016 Iron deficiency anemia, unsp ecified iron deficiency anemia type D50.9 ; Rheumatoid arthritis with positive rheumatoid factor, involving unspecified site M05.9 and Depression, unspecified depression type F32.9 [facility] [address] [id number] [address] [place] [phone] 13 Mar, 2016 Iron deficiency anemia, unsp ecified iron deficiency anemia type D50.9 ; Depression, unspecified depression type F32.9 and Rheumatoid arthritis with positive rheumatoid factor, involving unspecified site M05.9 [facility] [address] [id number] [address] [place] [phone] Mar, [facility] [address] [facility] [id number] [address] [place] [phone] Mar, [facility] [address] [facility] [id number] [address] [place] [phone] Feb, Chronic pain syndrome G89.4 [place] [id number] [facility] [id number] [address] [place] [phone] Feb, Status post partial amputati on of left foot Z89.432 ; Status post CVA Z86.73 ; Hemiplegia G81.90 and Anemia, unspecified type D64.9 [place] [address] [facility] [id number] [address] [place] [phone] Feb, [place] [address] [facility] [id number] [address] [place] [phone] Feb, Anemia, unspecified type D64 .9 [place] [address] [facility] [id number] [address] [place] [phone] Feb, [place] [address] [facility] [id number] [address] [place] [phone] Feb, Iron deficiency anemia, unsp ecified iron deficiency anemia type D50.9 [place] [address] [facility] [id number] [address] [place] [phone] Feb, [place] [address] [facility] [id number] [address] [place] [phone] Feb, Chronic bronchitis, unspecif ied chronic bronchitis type J42 [place] [address] [facility] [id number] [address] [place] [phone] Feb, Iron deficiency anemia, unsp ecified iron deficiency anemia type D50.9 [place] [address] [facility] [id number] [address] [place] [phone] Feb, Chronic pain syndrome G89.4 [place] [address] [facility] [id number] [address] [place] [phone] Feb, Anemia, unspecified type D64 .9 and Hypoxia R09.02 [place] [address] [facility] [id number] [address] [place] [phone] Feb, Anemia, unspecified type D64 .9 [place] [address] [facility] [id number] [address] [place] [phone] Jan, [facility] [address] [id number] [address] [place] [phone] Jan, Anemia, unspecified type D64 .9 [facility] [address] [id number] [address] [place] [phone] Jan, [facility] [address] [id number] [address] [place] [phone] Jan, Anemia, unspecified type D64 .9 [facility] [address] [id number] [address] [place] [id number] Jan, Anemia, unspecified type D64 .9 [facility] [address] [id number] [address] [place] [phone] Jan, [facility] [address] [facility] [id number] [address] [place] [phone] Jan, Anemia, unspecified type D64 .9 [facility] [address] [id number] [address] [place] [phone] Jan, [facility] [address] [facility] [id number] [address] [place] [phone] Jan, [facility] [address] [facility] [id number] [address] [place] [phone] Jan, Chronic pain syndrome G89.4 [facility] [address] [facility] [id number] [address] [place] [phone] Jan, Anemia, unspecified type D64 .9 [facility] [address] [id number] [address] [place] [phone] Jan, Dysthymia F34.1 ; Cervicalgi a M54.2 ; Fatigue, unspecified type R53.83 and Depression, unspecified depression type F32.9 [facility] [address] [id number] [address] [place] [phone] Dec, [facility] [address] [facility] [id number] [address] [place] [phone] 14 Dec, 2015 Anxiety F41.9 [facility] [address] [facility] [id number] [address] [place] [phone] 08 Dec, 2015 Chronic pain syndrome G89.4 [facility] [address] [facility] [id number] [address] [place] [phone] November, [facility] [address] [place] [id number] [address] [place] [phone] November, Edema R60.9 and Dizziness R4 2 [facility] [address] [facility] [id number] [address] [place] [phone] November, [facility] [address] [facility] [id number] [place] [phone] November, [facility] [address] [place] [id number] [address] [place] [phone] November, COPD (chronic obstructive pu lmonary disease) J44.9 ; Increased tracheal secretions J39.8 and Edema R60.9 [facility] [address] [facility] [id number] [address] [place] [phone] Oct, [facility] [address] [facility] [id number] [address] [place] [phone] Oct, Shortness of breath R06.02 a nd Edema R60.9 [facility] [address] [facility] [id number] [address] [place] [phone] Oct, Chronic bronchitis, unspecif ied chronic bronchitis type J42 ; Peripheral vascular disease, unspecified I73.9 ; Rheumatoid arthritis M06.9 and Atrial fibrillation I48.91 [facility] [address] [facility] [id number] [address] [place] [phone] Oct, [facility] [address] [facility] [id number] [address] [place] [phone] Oct, [facility] [address] [place] [id number] [address] [place] [phone] Oct, [facility] [address] [id number] [address] [place] [phone] Oct, [facility] [address] [facility] [id number] [address] [place] [phone] Oct, COPD exacerbation J44.1 [facility] [address] [facility] [id number] [address] [place] [phone] Sep, [facility] [address] [id number] [address] [place] [phone] Sep, [facility] [address] [facility] [id number] [address] [place] [phone] Sep, [facility] [address] [facility] [id number] [address] [place] [phone] Aug, [facility] [address] 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 [id number] [address] [place] [phone] Aug, Bronchitis J40 ; COPD (chron ic obstructive pulmonary disease) J44.9 and Dysthymia F34.1 [facility] [address] [facility] [id number] [address] [place] [phone] Aug, [facility] [address] [facility] [id number] [address] [place] [phone] Jul, [facility] [address] [facility] [id number] [address] [place] [phone] Jul, [facility] [address] [facility] [id number] [address] [place] [phone] Jul, [facility] [address] [facility] [id number] [address] [place] [phone] Jun, [facility] [address] [facility] [id number] [address] [place] [phone] Jun, [facility] [address] [id number] [address] [place] [phone] Jun, Peripheral vascular disease I73.9 [facility] [address] [id number] [address] [place] [phone] Jun, [facility] [address] [facility] [id number] [address] [place] [phone] Jun, [facility] [address] 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 [id number] [address] [place] [phone] May, [facility] [address] [id number] [address] [place] [phone] May, [facility] [address] [facility] [id number] [address] [place] [phone] May, [facility] [address] [id number] [address] [place] [phone] May, [facility] [address] [facility] [id number] [address] [place] [phone] May, [facility] [address] [id number] [address] [place] [phone] Apr, [facility] [address] [id number] [address] [place] [phone] Apr, [facility] [address] [id number] [address] [place] [phone] Mar, [facility] [address] [id number] [address] [place] [phone] Mar, [facility] [address] [id number] [address] [place] [phone] Feb, [facility] [address] [id number] [address] [place] [phone] Feb, Nicotine abuse 305.1 ; Arthr algia 719.40 and 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 [facility] [address] [id number] [address] [place] [id number] Feb, [facility] [address] [id number] [address] [place] [phone] Jan, [facility] [address] [id number] [address] [place] [phone] Jan, [facility] [address] [id number] [address] [place] [phone] Jan, [facility] [address] [facility] [id number] [address] [place] [phone] Jan, [facility] [address] [facility] [id number] [address] [place] [phone] Jan, 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 ; Rhe umatoid arthritis 714.0 ; Hypertension 401.9 ; GERD (gastroesophageal reflux disease) 530.81 ; Nicotine addiction 305.1 and Leukocytosis 288.60 [facility] [address] [id number] [address] [place] [phone] Jan, [facility] [address] [facility] [id number] [address] [place] [phone] Jan, [facility] [address] [id number] [address] [place] [phone] Jan, [facility] [address] [id number] [address] [place] [phone] Jan, [facility] [address] [facility] [id number] [address] [place] [phone] Jan, [facility] [address] [facility] [id number] [address] [place] [phone] Dec, [facility] [address] [facility] [id number] [address] [place] [phone] Dec, [facility] [address] [facility] [id number] [address] [place] [phone] Dec, [facility] [address] [facility] [id number] [address] [place] [phone] Dec, [facility] [address] [place] [id number] [address] [place] [phone] November, [facility] [address] 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 [id number] [address] [place] [id number] November, [facility] [address] [place] [id number] [address] [place] [phone] Oct, [facility] [address] [place] [id number] [address] [place] [phone] Oct, [facility] [address] [place] [id number] [address] [place] [id number] Oct, [facility] [address] [id number] [address] [place] [address], [place] [address] 13 Oct, 2014 [facility] [address] [id number] [address] [place] [address], [place] [address] Sep, [facility] [address] [id number] [address] [place] [address], [place] [address] Sep, [facility] [address] [id number] [address] [place] [address], [place] [address] Sep, [facility] [address] [id number] [address] [place] [address], [place] [address] Sep, [facility] [address] [id number] [address] [place] [address], [place] [address] Sep, [facility] [address] [id number] [address] [place] [address], [place] [address] Sep, [facility] [address] [id number] [address] [place] [address], [place] [address] Sep, [facility] [address] [id number] [address] [place] [address], [place] [address] Sep, [facility] [address] [id number] [address] [place] [address], [place] [address] Aug, [facility] [address] [id number] [address] [place] [address], [place] [address] Aug, [facility] [address] [id number] [address] [place] [phone] Aug, [facility] [address] [id number] [address] [place] [address], [place] [address] Aug, [facility] [address] [id number] [address] [place] [address], [place] [address] Aug, [facility] [address] [id number] [address] [place] [address], [place] [address] Aug, [facility] [address] [id number] [address] [place] [address], [place] [address] Jul, [facility] [address] [id number] [address] [place] [address], [place] [address] Jul, [facility] [address] [id number] [address] [place] [address], [place] [address] Jul, [facility] [address] [id number] [address] [place] [address], [place] [address] Jul, [facility] [address] [id number] [address] [place] [address], [place] [address] Jul, [facility] [address] [id number] [address] [place] [address], [place] [address] Jul, [facility] [address] [id number] [address] [place] [address], [place] [address] Jul, [facility] [address] [id number] [address] [place] [address], [place] [address] Jul, [facility] [address] [id number] [address] [place] [address], [place] [address] Jul, [facility] [address] [id number] [address] [place] [address], [place] [address] Jul, [facility] [address] [id number] [address] [place] [address], [place] [address] Jun, [facility] [address] [id number] [address] [place] [address], [place] [address] Jun, [facility] [address] [id number] [address] [place] [address], [place] [address] Jun, [facility] [address] [id number] [address] [place] [address], [place] [address] Jun, [facility] [address] [id number] [address] [place] [address], [place] [address] Jun, [facility] [address] [id number] [address] [place] [address], [place] [address] Jun, [facility] [address] [id number] [address] [place] [address], [place] [address] Jun, [facility] [address] [id number] [address] [place] [address], [place] [address] Jun, [facility] [address] [id number] [address] [place] [address], [place] [address] Jun, [facility] [address] [id number] [address] [place] [address], [place] [address] Jun, [facility] [address] [id number] [address] [place] [address], [place] [address] Jun, [facility] [address] [id number] [address] [place] [address], [place] [address] Jun, [facility] [address] [id number] [address] [place] [address], [place] [address] Jun, [facility] [address] [id number] [address] [place] [address], [place] [address] Jun, [facility] [address] [id number] [address] [place] [address], [place] [address] Jun, [facility] [address] [id number] [address] [place] [address], [place] [address] Jun, [facility] [address] [id number] [address] [place] [address], [place] [address] May, [facility] [address] [id number] [address] [place] [address], [place] [address] May, [facility] [address] [id number] [address] [place] [address], [place] [address] May, [facility] [address] [id number] [address] [place] [address], [place] [address] May, [facility] [address] [id number] [address] [place] [address], [place] [address] May, [facility] [address] [id number] [address] [place] [address] May, [facility] [address] [id number] [address] [place] [address], [place] [address] May, [facility] [address] [id number] [address] [place] [address] May, [facility] [address] [id number] [address] [place] [address], [place] [address] May, [facility] [address] [id number] [address] [place] [address] Apr, [facility] [address] [id number] [address] [place] [address], [place] [address] Apr, [facility] [address] [id number] [address] [place] [address] Apr, [facility] [address] [id number] [address] [place] [address] Apr, [facility] [address] [id number] [address] [place] [address] Apr, [facility] [address] [id number] [address] [place] [address] Apr, [facility] [address] [id number] [address] [place] [address] Apr, [facility] [address] [id number] [address] [place] [address] Apr, [facility] [address] [id number] [address] [place] [address] Apr, [facility] [address] [id number] [address] [place] [address], [place] [address] Apr, [facility] [address] [id number] [address] [place] [address] Apr, [facility] [address] [id number] [address] [place] [address], [place] [address] Apr, [facility] [address] [id number] [facility] [place] [address] 22 Mar, 2013 [facility] [address] [id number] [facility] [place] [address] 22 Mar, 2013 [facility] [address] [id number] [facility] [place] [address] 19 Mar, 2013 [facility] [address] [id number] [address] [place] [address], [place] [address] 19 Mar, 2013 [facility] [address] [id number] [address] [place] [address], [place] [address] 11 Mar, 2013 [facility] [address] [id number] [address] [place] [address], [place] [address] Mar, 2013 [facility] [address] [id number] [address] [place] [address], [place] [address] Mar, 2013 [facility] [address] [id number] [address] [place] [address], [place] [address] Mar, 2013 [facility] [address] [id number] [address] [place] [address], [place] [address] Mar, [facility] [address] [id number] [address] [place] [address], [place] [address] Mar, [facility] [address] [id number] [address] [place] [address], [place] [address] Feb, [facility] [address] [id number] [address] [place] [address], [place] [address] Feb, [facility] [address] [id number] [address] [place] [address], [place] [address] Feb, [facility] [address] [id number] [address] [place] [address], [place] [address] Feb, [facility] [address] [id number] [address] [place] [address], [place] [address] Feb, [facility] [address] [id number] [address] [place] [address], [place] [address] Feb, [facility] [address] [id number] [facility] [place] [address] Feb, [facility] [address] [id number] [address] [place] [address], [place] [address] Feb, [facility] [address] [id number] [address] [place] [address], [place] [address] Feb, [facility] [address] [id number] [address] [place] [address], [place] [address] Feb, [facility] [address] [id number] [address] [place] [address], [place] [address] Feb, [facility] [address] [id number] [address] [place] [address], [place] [address] Feb, [facility] [address] [id number] [address] [place] [address], [place] [address] Feb, [facility] [address] [id number] [address] [place] [address], [place] [address] Feb, [facility] [address] [id number] [address] [place] [address], [place] [address] Feb, [facility] [address] [id number] [address] [place] [address], [place] [address] Feb, [facility] [address] [id number] [address] [place] [address], [place] [address] Jan, [facility] [address] [id number] [address] [place] [address], [place] [address] Jan, [facility] [address] [id number] [address] [place] [address], [place] [address] Jan, [facility] [address] [id number] [address] [place] [address], [place] [address] Jan, [facility] [address] [id number] [address] [place] [address], [place] [address] Jan, [facility] [address] [id number] [address] [place] [address], [place] [address] Jan, [facility] [address] [id number] [facility] [place] [address] Dec, [facility] [address] [id number] [address] [place] [address], [place] [address] Dec, [facility] [address] [id number] [address] [place] [address], [place] [address] Dec, [facility] [address] [id number] [address] [place] [address], [place] [address] Dec, [facility] [address] [id number] [address] [place] [address], [place] [address] Dec, [facility] [address] [id number] [address] [place] [address], [place] [address] Dec, [facility] [address] [id number] [address] [place] [address], [place] [address] Dec, [facility] [address] [id number] [address] [place] [address], [place] [address] Dec, [facility] [address] [id number] [address] [place] [address], [place] [address] November, [facility] [address] [id number] [address] [place] [address], [place] [address] November, [facility] [address] [id number] [address] [place] [address], [place] [address] November, [facility] [address] [id number] [address] [place] [address], [place] [address] November, [facility] [address] [id number] [address] [place] [address], [place] [address] November, [facility] [address] [id number] [address] [place] [address], [place] [address] November, [facility] [address] [id number] [address] [place] [address], [place] [address] Oct, [facility] [address] [id number] [facility] [place] [address] Oct, [facility] [address] [id number] [facility] [place] [place] [address] Oct, [facility] [address] [id number] [facility] [place] [address] Oct, [facility] [address] [id number] [facility] [place] [place] [address] Sep, [facility] [address] [id number] [facility] [place] [place] [address] Sep, [facility] [address] [id number] [address] [place] [address], [place] [address] Sep, [facility] [address] [id number] [address] [place] [address], [place] [address] Sep, [facility] [address] [id number] [address] [place] [address], [place] [address] Sep, [facility] [address] [id number] [address] [place] [address], [place] [address] Sep, [facility] [address] [id number] [address] [place] [address], [place] [address] Aug, [facility] [address] [id number] [address] [place] [address], [place] [address] Aug, [facility] [address] [id number] [address] [place] [address], [place] [address] Aug, [facility] [address] [id number] [address] [place] [address], [place] [address] Aug, [facility] [address] [id number] [address] [place] [address], [place] [address] Aug, [facility] [address] [id number] [address] [place] [address], [place] [address] Aug, [facility] [address] [id number] [address] [place] [address], [place] [address] Jul, [facility] [address] [id number] [address] [place] [address], [place] [address] Jul, [facility] [address] [id number] [address] [place] [address], [place] [address] Jul, [facility] [address] [id number] [address] [place] [address], [place] [address] Jul, [facility] [address] [id number] [address] [place] [address], [place] [address] Jul, [facility] [address] [id number] [address] [place] [address], [place] [address] Jul, [facility] [address] [id number] [address] [place] [address], [place] [address] Jul, [facility] [address] [id number] [address] [place] [address], [place] [address] Jul, [facility] [address] [id number] [address] [place] [address], [place] [address] Jul, [facility] [address] [id number] [address] [place] [address], [place] [address] Jul, [facility] [address] [id number] [address] [place] [address], [place] [address] Jul, [facility] [address] [id number] [address] [place] [address], [place] [address] Jul, [facility] [address] [id number] [address] [place] [address], [place] [address] Jul, [facility] [address] [id number] [address] [place] [address], [place] [address] Jul, [facility] [address] [id number] [address] [place] [address], [place] [address] Jul, [facility] [address] [id number] [address] [place] [address], [place] [address] Jun, [facility] [address] [id number] [address] [place] [address], [place] [address] 18 Jun, 2013 [facility] [address] [id number] [address] [place] [address], [place] [address] Jun, [facility] [address] [id number] [address] [place] [address], [place] [address] Jun, [facility] [address] [id number] [address] [place] [address], [place] [address] May, [facility] [address] [id number] [address] [place] [address], [place] [address] May, [facility] [address] [id number] [place] [id number] May, [facility] [address] [id number] [address] [place] [address], [place] [address] May, [facility] [address] [id number] [address] [place] [address], [place] [address] May, [facility] [address] [id number] [address] [place] [address], [place] [address] May, [facility] [address] [id number] [address] [place] [address], [place] [address] May, [facility] [address] [id number] [address] [place] [address], [place] [address] May, [facility] [address] [id number] [address] [place] [address], [place] [address] May, [facility] [address] [id number] [place] [id number] May, [facility] [address] [id number] [address] [place] [address], [place] [address] May, [facility] [address] [id number] [place] [id number] May, [facility] [address] [id number] [address] [place] [address], [place] [address] May, [facility] [address] [id number] [place] [id number] May, [facility] [address] 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 Di connolly) 2012 Surgical History arthrectomy with stent L SFA (Toro) 2 014 Surgical History capsule endoscopy Dr Pittman WNL 04/01 16 Surgical History Rt TKA 12/24/16 Surgical History SVT pathway ablation by Dr Ruiz 01/29 18 Surgical History oral cancer [...] 01/08/16 Hospitalization History pseudomemranous colitis, sepsis--[facility] 04/21/2016 Hospitalization History C Diff--[facility] 05/10/2016 Hospitalization History sepsis, pneumonia, diarrhea--[facility] Hospitalization History recurrent cdiff, pneumonia-[facility] Hospitalization History sepsis,pneumonia- 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
--- OUTSIDE RECORDS SUMMARY | 2019-11-07 10:12 | XMS REPORT ---
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 353563240 Problem COPD (chronic obstructive pulmonary disease) J44.9 Active 60150576 Problem Hypertension I10 Active 2575238 3 Problem Primary insomnia F51.01 Active 397 2004 Problem Hx of Clostridium difficile infection Z86.19 Active 521838568 Problem Chronic obstructive pulmon disease w acute lower resp infc t J44.0 Active 979626295 Problem History of arthroplasty of right knee Z96.651 Active 212529057 Problem Leg pain, left M79.605 Active 57498 7008 Problem Status post partial amputation of left foot Z89.43 2 Active 102088171 Problem Edema R60.9 Active 354119948 Problem Tobacco abuse, 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 Ac tive 017156724 Problem Anxiety F41.9 Active 08613185 Problem Chronic pain syndrome G89.4 Active 008406216 Problem Anemia, unspecified type D64.9 Activ e 509400439 Problem Depression, unspecified depression type F32.9 Active 44504602 Problem Other chronic pain G89.29 Active 8 7957405 Problem Iron deficiency anemia, unspecified iron deficiency an emia type D50.9 Active 16092166 Problem Insomnia, unspecified G47.00 Active 358011126 Problem Seasonal allergic rhinitis due to pollen J30.1 Active 37468663 Problem History of oral cancer Z85.819 Active 626493162 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 36 8488361 Problem Atrial fibrillation I48.91 Active 50368333 Problem Chronic obstructive pulmonary disease with (acute) exa cerbation J44.1 Active 714795070 Problem Rheumatoid arthritis M06.9 Active 31453685 Problem Dysthymia F34.1 Active 77048151 Problem Neuropathy G62.9 Active 856810454 Problem Rheumatoid arthritis with po sitive rheumatoid factor, involving unspecified site M05.9 Active 86416766 Problem Hemiplegia and hemiparesis f ollowing cerebral infarction affecting right dominant side I69.351 Active 631819284 Problem Cancer of neck C76.0 Active 43224 9000 ALLERGIES No Information ENCOUNTERS Encounter Location Date Diagnosis [facility] [address] [facility] [id number] [address] [place] [id number] November, [facility] [address] [facility] [id number] [address] [place] [id number] Oct, Anxiety F41.9 [facility] [address] [facility] [id number] [address] [place] [phone] 08 Oct, 2019 Thrush B37.0 [facility] [address] [facility] [id number] [address] [place] [id number] 08 Oct, 2019 [facility] [address] [facility] [id number] [address] [place] [address] Sep, [facility] [address] [facility] [id number] [address] [place] [address] Sep, Chronic pain syndrome G89.4 and Rheumatoid arthritis with positive rheumatoid factor, involving unspecified site M05.9 [facility] [address] [facility] [id number] [address] [place] [address] Sep, [facility] [address] [facility] [id number] [address] [place] [id number] 28 Aug, 2019 Chronic pain syndrome G89.[address] [place] [address] 19 Aug, 2019 Chronic obstructive pulmonar y disease with (acute) exacerbation J44.1 [facility] [address] [id number] [address] [place] [id number] 12 Aug, 2019 Single subsegmental pulmonar y embolism without acute cor pulmonale I26.93 ; Rheumatoid arthritis with positive rheumatoid factor, involving unspecified site M05.9 ; Chronic pain syndrome G89.4 ; Leg pain, left M79.605 and 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 [facility] [address] [id number] [address] [place] [address] Aug, [facility] [address] [id number] [address] [place] [address] Aug, 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 [facility] [address] [id number] [address] [place] [id number] 07 Aug, 2019 Chronic pain syndrome G89.4 [place] [address] [facility] [id number] [address] [place] [address] Jul, Primary insomnia F51.01 [facility] [address] [id number] [address] [place] [phone] Jul, Chronic pain syndrome G89.4 [facility] [address] [id number] [address] [place] [phone] Jul, [facility] [address] [id number] [address] [place] [phone] Jul, [facility] [address] [id number] [address] [place] [address] Jul, Rheumatoid arthritis with po sitive rheumatoid factor, involving unspecified site M05.9 and Chronic pain syndrome G89.4 [facility] [address] [id number] [address] [place] [phone] Jul, [facility] [address] [facility] [id number] [address] [place] [phone] Jun, Rheumatoid arthritis with po sitive rheumatoid factor, involving unspecified site M05.9 [facility] [address] [id number] [address] [place] [phone] Jun, Chronic pain syndrome G89.4 ; Rheumatoid arthritis with positive rheumatoid factor, involving unspecified site M05.9 and Anxiety F41.9 [facility] [address] [id number] [address] [place] [phone] Jun, [facility] [address] [id number] [address] [place] [phone] Jun, Hemorrhoids, unspecified hem orrhoid type K64.9 [facility] [address] [id number] [address] [place] [phone] Jun, Hemorrhoids, unspecified hem orrhoid type K64.9 ; Cancer of neck C76.0 and Drug-induced constipation K59.03 [facility] [address] [id number] [address] [place] [phone] Jun, [facility] [address] [id number] [address] [place] [phone] Jun, [facility] [address] [id number] [address] [place] [phone] Jun, Rheumatoid arthritis with po sitive rheumatoid factor, involving unspecified site M05.9 [facility] [address] [id number] [address] [place] [phone] May, [facility] [address] [id number] [address] [place] [address] May, Rheumatoid arthritis with po sitive rheumatoid factor, involving unspecified site M05.9 [facility] [address] [id number] [address] [place] [address] Apr, Primary insomnia F51.01 [facility] [address] [id number] [address] [place] [phone] Apr, Rheumatoid arthritis with po sitive rheumatoid factor, involving unspecified site M05.9 [facility] [address] [id number] [address] [place] [address] Mar, [facility] [address] [facility] [id number] [address] [place] [phone] Mar, [facility] [address] [id number] [address] [place] [id number] Mar, Rheumatoid arthritis with po sitive rheumatoid factor, involving unspecified site M05.9 ; Atrial fibrillation I48.91 ; Chronic pain syndrome G89.4 ; Iron deficiency anemia, unspecified iron deficiency anemia type D50.9 and Hemiplegia and hemiparesis following cerebral infarction affecting right dominant side I69.351 [facility] [address] [id number] [address] [place] [phone] Mar, Chronic pain syndrome G89.4 and Primary insomnia F51.01 [place] [address] [facility] [id number] [address] [place] [address] Mar, Rheumatoid arthritis with po sitive rheumatoid factor, involving unspecified site M05.9 [place] [address] [facility] [id number] [address] [place] [address] Feb, Rheumatoid arthritis with po sitive rheumatoid factor, involving unspecified site M05.9 ; Chronic pain syndrome G89.4 ; Atrial fibrillation I48.91 ; Iron deficiency anemia, unspecified iron deficiency anemia type D50.9 ; Hemiplegia and hemiparesis following cerebral infarction affecting right dominant side I69.351 and Primary insomnia F51.01 [facility] [address] [facility] [id number] [address] [place] [address] Feb, Chronic pain syndrome G89.4 [facility] [address] [id number] [address] [place] [phone] Jan, Chronic pain syndrome G89.4 [facility] [address] [facility] [id number] [address] [place] [phone] Jan, [facility] [address] [facility] [id number] [address] [place] [phone] Jan, [facility] [address] [facility] [id number] [address] [place] [phone] Dec, [facility] [address] [id number] [address] [place] [phone] Dec, Chronic pain syndrome G89.4 [facility] [address] [id number] [address] [place] [phone] Dec, [facility] [address] [id number] [address] [place] [phone] November, Chronic pain syndrome G89.4 [facility] [address] [id number] [address] [place] [phone] Oct, Chronic pain syndrome G89.4 [facility] [address] [id number] [address] [place] [phone] Oct, [facility] [address] [facility] [id number] [address] [place] [phone] Sep, Chronic pain syndrome G89.4 [facility] [address] [id number] [address] [place] [address] Sep, Leg pain, left M79.605 ; Rig ht leg pain M79.604 and Reactive cervical nodes R59.0 [facility] [address] [facility] [id number] [address] [place] [id number] 14 Sep, 2018 [facility] [address] [id number] [address] [place] [phone] Sep, Neuropathy G62.9 [facility] [address] [id number] [place] [id number] Sep, [facility] [address] [facility] [id number] [address] [place] [phone] Sep, Lymphadenopathy of left cerv ical region R59.0 [facility] [address] [facility] [id number] [address] [place] [phone] 04 Sep, 2018 Lymphadenopathy of left cerv ical region R59.0 and Neuropathy G62.9 [facility] [address] [facility] [id number] [address] [place] [address] Aug, Chronic pain syndrome G89.4 [facility] [address] [facility] [id number] [address] [place] [address] Aug, [facility] [address] [place] [id number] [address] [place] [phone] 04 Aug, 2018 Peripheral vascular disease, unspecified I73.9 ; Other chronic pain G89.29 ; Chronic obstructive pulmon disease w acute lower resp infct J44.0 and Primary insomnia F51.01 [facility] [address] [place] [id number] [address] [place] [phone] Aug, Chronic pain syndrome G89.4 [facility] [address] [place] [id number] [address] [place] [address] Jul, Chronic pain syndrome G89.4 [place] [address] [address] Jun, Chronic pain syndrome G89.4 [facility] [address] [place] [id number] [address] [place] [address] May, Chronic pain syndrome G89.4 [facility] [address] [place] [id number] [address] [place] [address] Apr, Cough R05 and Viral illness B34.9 [place] [address] [place] [id number] [address] [place] [phone] Apr, Encounter for immunization Z 23 [facility] [id number] [place] [address] Apr, Chronic pain syndrome G89.4 [facility] [address] [place] [id number] [address] [place] [id number] 07 Apr, 2018 Left acute otitis media H66. 92 [place] [address] [place] [id number] [address] [place] [address] Mar, Rheumatoid arthritis M06.9 ; Other chronic pain G89.29 ; History of oral cancer Z85.819 and History of tachycardia Z87.898 [facility] [address] [id number] [address] [place] [phone] 14 Mar, 2018 Chronic pain syndrome G89.4 [facility] [address] [id number] [address] [place] [address] Feb, Chronic pain syndrome G89.4 [facility] [address] [id number] [address] [place] [phone] Feb, Chronic pain syndrome G89.4 [facility] [address] [id number] [address] [place] [phone] Jan, Chronic pain syndrome G89.4 [facility] [address] [id number] [address] [place] [phone] Jan, [facility] [address] [id number] [address] [place] [address] Dec, Chronic pain syndrome G89.4 [facility] [address] [id number] [address] [place] [address] November, Chronic pain syndrome G89.4 [facility] [address] [id number] [address] [place] [id number] November, [facility] [address] [id number] [address] [place] [phone] Oct, Chronic pain syndrome G89.4 [facility] [address] [id number] [address] [place] [phone] Oct, [facility] [address] [id number] [address] [place] [address] Oct, Chronic pain syndrome G89.4 [facility] [address] [id number] [address] [place] [phone] Oct, [facility] [address] [id number] [address] [place] [address] Oct, [facility] [address] [id number] [address] [place] [address] Sep, Left upper quadrant pain R10 .12 ; Chronic pain syndrome G89.4 ; Left lower quadrant pain R10.32 ; Other chronic pain G89.29 ; Sacrococcygeal disorders, not elsewhere classified M53.3 and Seasonal allergic rhinitis due to pollen J30.1 [facility] [address] [facility] [id number] [address] [place] [address] Sep, Chronic pain syndrome G89.4 [facility] [address] [facility] [id number] [address] [place] [address] Sep, [facility] [address] [facility] [id number] [address] [place] [phone] Aug, Chronic pain syndrome G89.4 [facility] [address] [facility] [id number] [address] [place] [address] Aug, [facility] [address] [facility] [id number] [address] [place] [address] Aug, Insomnia, unspecified G47.00 [facility] [address] [facility] [id number] [address] [place] [address] Jul, [facility] [address] [facility] [id number] [address] [place] [id number] Jul, [facility] [address] [facility] [id number] [address] [place] [address] Jul, Chronic pain syndrome G89.4 [facility] [address] [facility] [id number] [address] [place] [address] Jun, Chronic pain syndrome G89.4 [facility] [address] [facility] [id number] [address] [place] [address] Jun, Chronic pain syndrome G89.4 [facility] [address] [facility] [id number] [address] [place] [address] May, [facility] [address] [facility] [id number] [address] [place] [address] May, Shortness of breath R06.02 ; Peripheral vascular disease, unspecified I73.9 ; Pain in right knee M25.561 ; Other chronic pain G89.29 ; Chest wall pain R07.89 ; Chronic pain syndrome G89.4 ; Primary insomnia F51.01 and Ear pain, left H92.02 [facility] [address] [place] [id number] [address] [place] [address] May, Anxiety F41.9 [place] [address] [place] [id number] [address] [place] [address] Apr, Pneumonia due to infectious organism, unspecified laterality, unspecified part of lung J18.9 ; Hypoxia R09.02 ; Bradycardia R00.1 ; History of Clostridium difficile Z87.19 and Primary insomnia F51.01 [place] [address] [place] [id number] [address] [place] [phone] Apr, Anxiety F41.9 [place] [address] [place] [id number] [address] [place] [address] Apr, [place] [address] [place] [id number] [address] [place] [phone] Mar, Anxiety F41.9 [place] [address] [place] [id number] [address] [place] [id number] Feb, [place] [address] [place] [id number] [address] [place] [id number] Feb, [place] [address] [place] [id number] [address] [place] [address] Feb, Abnormal finding on urinalys is R82.90 [place] [address] [place] [id number] [address] [place] [id number] Feb, [place] [address] [place] [id number] [address] [place] [address] Feb, Shortness of breath R06.02 ; Tachycardia R00.0 ; Cough R05 ; Ill feeling R68.89 and Abnormal finding on urinalysis R82.90 [facility] [address] [facility] [id number] [address] [place] [phone] Feb, Anxiety F41.9 [facility] [address] [facility] [id number] [address] [place] [address] Feb, Sore throat J02.9 and Acute diffuse otitis externa of left ear H60.312 [facility] [address] [facility] [id number] [address] [place] [address] Jan, [facility] [address] [facility] [id number] [address] [place] [address] Jan, [facility] [id number] [place] [id number] Jan, [facility] [address] [facility] [id number] [address] [place] [address] Jan, Depression, unspecified depr ession type F32.9 ; Chronic bronchitis, unspecified chronic bronchitis type J42 ; Chronic pain syndrome G89.4 and Anxiety F41.9 [facility] [address] [facility] [id number] [address] [place] [address] Jan, [facility] [address] [facility] [id number] [address] [place] [phone] Jan, [facility] [address] [facility] [id number] [address] [place] [phone] Jan, [facility] [id number] [id number] Jan, Chronic pain syndrome G89.4 [facility] [address] [place] [id number] Dec History of right knee surgery Z98.890 [facility] [address] [facility] [id number] [address] [place] [phone] Dec, [facility] [address] [facility] [id number] [address] [place] [address] Dec, Chronic pain syndrome G89.4 [facility] [address] [facility] [id number] [address] [place] [address] November, Anxiety F41.9 [facility] [address] [facility] [id number] [address] [place] [address] 16 Nov, 2016 Acute cystitis without hemat uria N30.00 [facility] [address] [facility] [id number] [address] [place] [address] November, Fever, unspecified fever cau se R50.9 and Acute cystitis without hematuria N30.00 [facility] [address] [id number] [address] [place] [address] November, Chronic pain syndrome G89.4 [place] [address] [facility] [id number] [address] [place] [address] Oct, Anxiety F41.9 [place] [address] [facility] [id number] [address] [place] [address] Oct, Chronic pain syndrome G89.4 [facility] [address] [facility] [id number] [address] [place] [address] Oct, Chronic pain syndrome G89.4 [place] [address] [facility] [id number] [address] [place] [id number] Oct, [facility] [address] [facility] [id number] [address] [place] [phone] Oct, Chronic pain syndrome G89.4 ; Pain in right knee M25.561 ; History of Clostridium difficile Z87.19 ; Iron deficiency anemia, unspecified iron deficiency anemia type D50.9 ; Peripheral vascular disease, unspecified I73.9 and Atrial fibrillation I48.91 [place] [address] [facility] [id number] [address] [place] [id number] Oct, [place] [address] [facility] [id number] [address] [place] [phone] Oct, Chronic pain syndrome G89.4 [place] [address] [facility] [id number] [address] [place] [phone] Sep, [facility] [address] [facility] [id number] [address] [place] [phone] Sep, Depression, unspecified depr ession type F32.9 ; Chronic bronchitis, unspecified chronic bronchitis type J42 ; Chronic pain syndrome G89.4 and Anxiety F41.9 [facility] [address] [place] [id number] Sep History of Clostridium difficile infection Z86.19 and History of stroke Z86.73 [facility] [address] [id number] [id number] Sep, Anxiety F41.9 [facility] [address] [facility] [id number] [address] [place] [id number] Sep, Chronic pain syndrome G89.4 [facility] [address] [facility] [id number] [address] [place] [phone] Sep, [facility] [address] [id number] [id number] Sep, [facility] [address] [facility] [id number] [address] [place] [phone] Aug, Anxiety F41.9 [facility] [address] [facility] [id number] [address] [place] [phone] 21 Aug, 2016 Anxiety F41.9 [facility] [address] [facility] [id number] [address] [place] [phone] 16 Aug, 2016 [facility] [address] [facility] [id number] [address] [place] [id number] 14 Aug, 2016 Acute knee pain, unspecified laterality M25.569 [facility] [address] [facility] [id number] [address] [place] [id number] 13 Aug, 2016 [facility] [address] [facility] [id number] [address] [place] [phone] 09 Aug, 2016 Chronic pain syndrome G89.4 [facility] [address] [facility] [id number] [address] [place] [phone] Aug, [facility] [address] [facility] [id number] [address] [place] [phone] Aug, [facility] [address] [facility] [id number] [address] [place] [phone] Jul, [facility] [address] [facility] [id number] [address] [place] [phone] Jul, Anxiety F41.9 [facility] [address] [facility] [id number] [address] [place] [phone] Jul, Clostridium difficile diarrh ea A04.7 [facility] [facility] [address] [place] [id number] Jul Clostridium difficile diarrhea A04.7 ; Chronic pain syndrome G89.4 ; Chronic obstructive pulmon disease w acute lower resp infct J44.0 and Pain in right knee M25.561 [facility] [id number] [place] [id number] Jul, [facility] [address] [facility] [id number] [address] [place] [address] Jul, Anxiety F41.9 and Chronic pa in syndrome G89.4 [facility] [address] [facility] [id number] [address] [place] [phone] Jun, Anxiety F41.9 [facility] [address] [facility] [id number] [address] [place] [phone] Jun, Rheumatoid arthritis 714.0 [facility] [address] [facility] [id number] [address] [place] [phone] Jun, Chronic pain syndrome G89.4 [facility] [address] [facility] [id number] [address] [place] [phone] Jun, [facility] [address] [facility] [id number] [address] [place] [phone] Jun, [facility] [address] [facility] [id number] [address] [place] [phone] 12 Jun, 2016 History of pneumonia Z87.01 and History of Clostridium difficile Z87.19 [facility] [address] [id number] [address] [place] [phone] Jun, [facility] [address] [id number] [address] [place] [phone] May, [facility] [address] [id number] [address] [place] [address] May, Anxiety F41.9 [facility] [address] [id number] [address] [place] [phone] May, Chronic pain syndrome G89.4 [facility] [address] [id number] [address] [place] [phone] May, Chronic bronchitis, unspecif ied chronic bronchitis type J42 [facility] [address] [id number] [address] [place] [phone] May, [facility] [address] [id number] [address] [place] [address] May, C. difficile diarrhea A04.7 ; Peripheral edema R60.9 ; COPD (chronic obstructive pulmonary disease) J44.9 ; Rheumatoid arthritis, involving unspecified site, unspecified rheumatoid factor presence M06.9 ; Pain in right knee M25.561 ; Pain in left knee M25.562 and Other chronic pain G89.29 [facility] [address] [id number] [address] [place] [address] May, [facility] [address] [id number] [address] [place] [address] May, [facility] [address] [id number] [address] [place] [phone] May, Anxiety F41.9 [facility] [address] [id number] [address] [place] [phone] Apr, [facility] [address] [id number] [address] [place] [address] Apr, Chronic pain syndrome G89.4 [facility] [address] [id number] [address] [place] [address] Apr, Leg pain, left M79.605 [facility] [address] [id number] [address] [place] [phone] Apr, [facility] [address] [id number] [address] [place] [phone] Apr, [facility] [address] [id number] [address] [place] [address] Apr, [facility] [address] [id number] [address] [place] [phone] Mar, Chronic pain syndrome G89.4 [facility] [address] [facility] [id number] [address] [place] [phone] Mar, Acute frontal sinusitis, rec urrence not specified J01.10 [facility] [address] [id number] [address] [place] [id number] 20 Mar, 2016 Iron deficiency anemia, unsp ecified iron deficiency anemia type D50.9 ; Rheumatoid arthritis with positive rheumatoid factor, involving unspecified site M05.9 and Depression, unspecified depression type F32.9 [facility] [address] [facility] [id number] [address] [place] [address] Mar, Iron deficiency anemia, unsp ecified iron deficiency anemia type D50.9 ; Depression, unspecified depression type F32.9 and Rheumatoid arthritis with positive rheumatoid factor, involving unspecified site M05.9 [facility] [address] [id number] [address] [place] [id number] Mar, [facility] [address] [facility] [id number] [address] [place] [phone] Mar, [facility] [address] [facility] [id number] [address] [place] [phone] Feb, Chronic pain syndrome G89.4 [facility] [address] [place] [address] Feb, Status post partial amputati on of left foot Z89.432 ; Status post CVA Z86.73 ; Hemiplegia G81.90 and Anemia, unspecified type D64.9 [facility] [address] [facility] [id number] [address] [place] [phone] Feb, [facility] [address] [place] [id number] [address] [place] [address] Feb, Anemia, unspecified type D64 .9 [facility] [address] [place] [id number] [address] [place] [phone] Feb, [facility] [address] [place] [address] Feb, Iron deficiency anemia, unsp ecified iron deficiency anemia type D50.9 [facility] [address] [place] [phone] Feb, [facility] [address] [place] [id number] [address] [place] [address] Feb, Chronic bronchitis, unspecif ied chronic bronchitis type J42 [facility] [address] [place] [id number] [address] [place] [address] Feb, Iron deficiency anemia, unsp ecified iron deficiency anemia type D50.9 [facility] [address] [place] [id number] [address] [place] [address] Feb, Chronic pain syndrome G89.4 [facility] [address] [place] [id number] [address] [place] [address] Feb, Anemia, unspecified type D64 .9 and Hypoxia R09.02 [facility] [address] [place] [id number] [address] [place] [address] Feb, Anemia, unspecified type D64 .9 [facility] [address] [place] [id number] [address] [place] [phone] Jan, [facility] [address] [id number] [address] [place] [phone] Jan, Anemia, unspecified type D64 .9 [facility] [address] [id number] [address] [place] [phone] Jan, [facility] [address] [facility] [id number] [address] [place] [address] Jan, Anemia, unspecified type D64 .9 [facility] [address] [id number] [address] [place] [id number] Jan, Anemia, unspecified type D64 .9 [facility] [address] [id number] [address] [place] [phone] Jan, [facility] [address] [facility] [id number] [address] [place] [address] Jan, Anemia, unspecified type D64 .9 [facility] [address] [facility] [id number] [address] [place] [address] Jan, [facility] [address] [facility] [id number] [address] [place] [phone] Jan, [facility] [address] [facility] [id number] [address] [place] [phone] Jan, Chronic pain syndrome G89.4 [facility] [address] [facility] [id number] [address] [place] [address] Jan, Anemia, unspecified type D64 .9 [facility] [address] [facility] [id number] [address] [place] [address] Jan, Dysthymia F34.1 ; Cervicalgi a M54.2 ; Fatigue, unspecified type R53.83 and Depression, unspecified depression type F32.9 [facility] [address] [id number] [address] [place] [address] Dec, [facility] [address] [facility] [id number] [address] [place] [address] Dec, Anxiety F41.9 [facility] [address] [facility] [id number] [address] [place] [phone] 08 Dec, 2015 Chronic pain syndrome G89.4 [facility] [address] [facility] [id number] [address] [place] [address] November, [facility] [address] [facility] [id number] [address] [place] [phone] November, Edema R60.9 and Dizziness R4 2 [facility] [address] [facility] [id number] [address] [place] [phone] November, [facility] [address] [facility] [id number] [place] [address] November, [facility] [address] [facility] [id number] [address] [place] [address] November, COPD (chronic obstructive pu lmonary disease) J44.9 ; Increased tracheal secretions J39.8 and Edema R60.9 [facility] [address] [facility] [id number] [address] [place] [phone] Oct, [facility] [address] [facility] [id number] [address] [place] [address] 28 Oct, 2015 Shortness of breath R06.02 a nd Edema R60.9 [facility] [address] [facility] [id number] [address] [place] [address] Oct, Chronic bronchitis, unspecif ied chronic bronchitis type J42 ; Peripheral vascular disease, unspecified I73.9 ; Rheumatoid arthritis M06.9 and Atrial fibrillation I48.91 [facility] [address] [facility] [id number] [address] [place] [phone] Oct, [facility] [address] [facility] [id number] [address] [place] [id number] Oct, [facility] [address] [facility] [id number] [address] [place] [phone] Oct, [facility] [address] [place] [id number] [address] [place] [phone] Oct, [facility] [address] [facility] [id number] [address] [place] [phone] Oct, COPD exacerbation J44.1 [facility] [address] [facility] [id number] [address] [place] [phone] Sep, [facility] [address] [facility] [id number] [address] [place] [phone] Sep, [facility] [address] [facility] [id number] [address] [place] [phone] Sep, [facility] [address] [facility] [id number] [address] [place] [phone] Aug, [facility] [address] [facility] [id number] [address] [place] [address] Aug, 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 and P VD (peripheral vascular disease) I73.9 [facility] [address] [facility] [id number] [address] [place] [phone] Aug, Bronchitis J40 ; COPD (chron ic obstructive pulmonary disease) J44.9 and Dysthymia F34.1 [facility] [address] [facility] [id number] [address] [place] [phone] Aug, [facility] [address] [facility] [id number] [address] [place] [phone] Jul, [facility] [address] [facility] [id number] [address] [place] [phone] Jul, [facility] [address] [facility] [id number] [address] [place] [phone] Jul, [facility] [address] [facility] [id number] [address] [place] [phone] Jun, [facility] [address] [facility] [id number] [address] [place] [address] Jun, [facility] [address] [id number] [address] [place] [address] Jun, Peripheral vascular disease I73.9 [facility] [address] [facility] [id number] [address] [place] [phone] Jun, [facility] [address] [facility] [id number] [address] [place] [phone] Jun, [facility] [address] [facility] [id number] [address] [place] [address] Jun, Leg pain, left M79.605 ; Dys phagia, unspecified dysphagia R13.10 ; Insomnia, unspecified type G47.00 ; PVD (peripheral vascular disease) I73.9 and 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 [facility] [address] [facility] [id number] [address] [place] [phone] May, [facility] [address] [id number] [address] [place] [phone] May, [facility] [address] [id number] [address] [place] [phone] May, [facility] [address] [id number] [address] [place] [address] May, [facility] [address] [facility] [id number] [address] [place] [id number] May, [facility] [address] [id number] [address] [place] [id number] Apr, [facility] [address] [id number] [address] [place] [phone] Apr, [facility] [address] [id number] [address] [place] [id number] Mar, [facility] [address] [facility] [id number] [address] [place] [id number] Mar, [facility] [address] [facility] [id number] [address] [place] [phone] Feb, [facility] [address] [id number] [address] [place] [id number] Feb, Nicotine abuse 305.1 ; Arthr algia 719.40 and 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 [facility] [address] [id number] [address] [place] [address] Feb, [facility] [address] [id number] [address] [place] [phone] Jan, [facility] [address] [id number] [address] [place] [phone] Jan, [facility] [address] [id number] [address] [place] [phone] Jan, [facility] [address] [facility] [id number] [address] [place] [phone] Jan, [facility] [address] [facility] [id number] [address] [place] [phone] Jan, 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 ; Rhe umatoid arthritis 714.0 ; Hypertension 401.9 ; GERD (gastroesophageal reflux disease) 530.81 ; Nicotine addiction 305.1 and Leukocytosis 288.60 [facility] [address] [id number] [address] [place] [id number] Jan, [facility] [address] [id number] [address] [place] [phone] Jan, [facility] [address] [id number] [address] [place] [address] Jan, [facility] [address] [id number] [address] [place] [phone] Jan, [facility] [address] [facility] [id number] [address] [place] [phone] Jan, [facility] [address] [facility] [id number] [address] [place] [phone] Dec, [facility] [address] [place] [id number] [address] [place] [address] Dec, [facility] [address] [facility] [id number] [address] [place] [phone] Dec, [facility] [address] [facility] [id number] [address] [place] [id number] Dec, [facility] [address] [address] November, [facility] [address] [place] [id number] [place] [address] November, [facility] [address] [address] November, Shortness of breath 786.05 [facility] [address] [address] November, Rheumatoid arthritis 714.0 [facility] [address] [address] November, 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 [facility] [address] [address] November, Neuropathy 355.9 ; Insomnia 780.52 ; Dysthymia 300.4 ; Shortness of breath 786.05 ; Rheumatoid arthritis 714.0 and Nausea 787.02 [facility] [id number] [place] [address] November, [facility] [address] [place] [id number] [address] [place] [phone] November, [facility] [address] [address] Oct, [facility] [address] [place] [id number] [place] [phone] Oct, [facility] [address] [place] [id number] [address] [place] [phone] Oct, [facility] [address] [id number] [address] [place] [address], [place] [address] Oct, [facility] [address] [id number] [address] [place] [address], [place] [address] Sep, [facility] [address] [id number] [address] [place] [address], [place] [address] Sep, [facility] [address] [id number] [address] [place] [address], [place] [address] Sep, [facility] [address] [id number] [address] [place] [address], [place] [address] Sep, [facility] [address] [id number] [address] [place] [address], [place] [address] Sep, [facility] [address] [id number] [address] [place] [address], [place] [address] Sep, [facility] [address] [id number] [address] [place] [address], [place] [address] Sep, [facility] [address] [id number] [address] [place] [address], [place] [address] Sep, [facility] [address] [id number] [address] [place] [address], [place] [address] Aug, [facility] [address] [id number] [address] [place] [address], [place] [address] Aug, [facility] [address] [id number] [address] [place] [address], [place] [address] Aug, 2014 [facility] [address] [id number] [address] [place] [address], [place] [address] Aug, [facility] [address] [id number] [address] [place] [address], [place] [address] Aug, [facility] [address] [id number] [address] [place] [address], [place] [address] Aug, [facility] [address] [id number] [address] [place] [address], [place] [address] Jul, [facility] [address] [id number] [address] [place] [address], [place] [address] Jul, [facility] [address] [id number] [address] [place] [address], [place] [address] Jul, [facility] [address] [id number] [address] [place] [address], [place] [address] Jul, [facility] [address] [id number] [address] [place] [address], [place] [address] Jul, [facility] [address] [id number] [address] [place] [address], [place] [address] Jul, [facility] [address] [id number] [address] [place] [address], [place] [address] Jul, [facility] [address] [id number] [address] [place] [address], [place] [address] Jul, [facility] [address] [id number] [address] [place] [address], [place] [address] Jul, [facility] [address] [id number] [address] [place] [address], [place] [address] Jul, [facility] [address] [id number] [address] [place] [address], [place] [address] Jun, [facility] [address] [id number] [address] [place] [address], [place] [address] Jun, [facility] [address] [id number] [address] [place] [address], [place] [address] Jun, [facility] [address] [id number] [address] [place] [address], [place] [address] Jun, [facility] [address] [id number] [address] [place] [address], [place] [address] Jun, [facility] [address] [id number] [address] [place] [address], [place] [address] Jun, [facility] [address] [id number] [address] [place] [address], [place] [address] Jun, [facility] [address] [id number] [address] [place] [address], [place] [address] Jun, [facility] [address] [id number] [address] [place] [address], [place] [address] Jun, [facility] [address] [id number] [address] [place] [address], [place] [address] Jun, [facility] [address] [id number] [address] [place] [address], [place] [address] Jun, [facility] [address] [id number] [address] [place] [address], [place] [address] Jun, [facility] [address] [id number] [address] [place] [address], [place] [address] Jun, [facility] [address] [id number] [address] [place] [address], [place] [address] Jun, [facility] [address] [id number] [address] [place] [address], [place] [address] Jun, [facility] [address] [id number] [address] [place] [address], [place] [address] Jun, [facility] [address] [id number] [address] [place] [address], [place] [address] May, [facility] [address] [id number] [address] [place] [address], [place] [address] May, [facility] [address] [id number] [address] [place] [address], [place] [address] May, [facility] [address] [id number] [address] [place] [address], [place] [address] May, [facility] [address] [id number] [address] [place] [address], [place] [address] May, [facility] [address] [id number] [address] [place] [address], [place] [address] May, [facility] [address] [id number] [address] [place] [address], [place] [address] May, [facility] [address] [id number] [address] [place] [address], [place] [address] May, [facility] [address] [id number] [address] [place] [address], [place] [address] May, [facility] [address] [id number] [address] [place] [address], [place] [address] Apr, [facility] [address] [id number] [address] [place] [address], [place] [address] Apr, [facility] [address] [id number] [address] [place] [address], [place] [address] Apr, [facility] [address] [id number] [address] [place] [address], [place] [address] Apr, [facility] [address] [id number] [address] [place] [address], [place] [address] Apr, [facility] [address] [id number] [address] [place] [address], [place] [address] Apr, [facility] [address] [id number] [address] [place] [address] Apr, [facility] [address] [id number] [address] [place] [address], [place] [address] Apr, [facility] [address] [id number] [address] [place] [address] Apr, [facility] [address] [id number] [address] [place] [address], [place] [address] Apr, [facility] [address] [id number] [address] [place] [address], [place] [address] Apr, [facility] [address] [id number] [address] [place] [address], [place] [address] Apr, [facility] [address] [id number] [address] [place] [address] [place] [address] 22 Mar, 2013 [facility] [address] [id number] [facility] [place] [address] 22 Mar, 2013 [facility] [address] [id number] [address] [place] [address], [place] [address] Mar, 2013 [facility] [address] [id number] [address] [place] [address], [place] [address] Mar, 2013 [facility] [address] [id number] [address] [place] [address], [place] [address] 11 Mar, 2013 [facility] [address] [id number] [address] [place] [address], [place] [address] Mar, 2013 [facility] [address] [id number] [address] [place] [address], [place] [address] Mar, 2013 [facility] [address] [id number] [address] [place] [address], [place] [address] Mar, 2013 [facility] [address] [id number] [address] [place] [address], [place] [address] Mar, 2013 [facility] [address] [id number] [address] [place] [address], [place] [address] Mar, 2013 [facility] [address] [id number] [address] [place] [address], [place] [address] Feb, [facility] [address] [id number] [address] [place] [address], [place] [address] Feb, [facility] [address] [id number] [address] [place] [address], [place] [address] Feb, [facility] [address] [id number] [address] [place] [address], [place] [address] Feb, [facility] [address] [id number] [address] [place] [address], [place] [address] Feb, [facility] [address] [id number] [address] [place] [address], [place] [address] Feb, [facility] [address] [id number] [facility] [place] [address] Feb, [facility] [address] [id number] [facility] [place] [address] Feb, [facility] [address] [id number] [facility] [place] [address] Feb, [facility] [address] [id number] [address] [place] [address] Feb, [facility] [address] [id number] [facility] [place] [address] Feb, [facility] [address] [id number] [address] [place] [address], [place] [address] Feb, [facility] [address] [id number] [address] [place] [address], [place] [address] Feb, [facility] [address] [id number] [address] [place] [address], [place] [address] Feb, [facility] [address] [id number] [address] [place] [address], [place] [address] Feb, [facility] [address] [id number] [address] [place] [address], [place] [address] Feb, [facility] [address] [id number] [address] [place] [address], [place] [address] Jan, [facility] [address] [id number] [address] [place] [address], [place] [address] Jan, [facility] [address] [id number] [address] [place] [address], [place] [address] Jan, [facility] [address] [id number] [address] [place] [address], [place] [address] Jan, [facility] [address] [id number] [address] [place] [address], [place] [address] Jan, [facility] [address] [id number] [address] [place] [address], [place] [address] Jan, [facility] [address] [id number] [facility] [place] [address] Dec, [facility] [address] [id number] [address] [place] [address], [place] [address] Dec, [facility] [address] [id number] [address] [place] [address], [place] [address] Dec, [facility] [address] [id number] [address] [place] [address], [place] [address] Dec, [facility] [address] [id number] [address] [place] [address], [place] [address] Dec, [facility] [address] [id number] [address] [place] [address], [place] [address] Dec, [facility] [address] [id number] [address] [place] [address], [place] [address] Dec, [facility] [address] [id number] [address] [place] [address], [place] [address] Dec, [facility] [address] [id number] [address] [place] [address], [place] [address] November, [facility] [address] [id number] [address] [place] [address], [place] [address] November, [facility] [address] [id number] [address] [place] [address], [place] [address] November, [facility] [address] [id number] [address] [place] [address], [place] [address] November, [facility] [address] [id number] [address] [place] [address], [place] [address] November, [facility] [address] [id number] [address] [place] [address], [place] [address] November, [facility] [address] [id number] [address] [place] [address], [place] [address] Oct, [facility] [address] [id number] [facility] [place] [address] 29 Oct, 2013 [facility] [address] [id number] [address] [place] [address], [place] [address] Oct, [facility] [address] [id number] [address] [place] [address] Oct, [facility] [address] [id number] [address] [place] [address], [place] [address] Sep, [facility] [address] [id number] [address] [place] [address], [place] [address] Sep, [facility] [address] [id number] [address] [place] [address], [place] [address] Sep, [facility] [address] [id number] [address] [place] [address], [place] [address] Sep, [facility] [address] [id number] [address] [place] [address], [place] [address] Sep, [facility] [address] [id number] [address] [place] [address], [place] [address] Sep, [facility] [address] [id number] [address] [place] [address], [place] [address] Aug, [facility] [address] [id number] [address] [place] [address], [place] [address] Aug, [facility] [address] [id number] [address] [place] [address], [place] [address] Aug, [facility] [address] [id number] [address] [place] [address], [place] [address] Aug, [facility] [address] [id number] [address] [place] [address], [place] [address] Aug, [facility] [address] [id number] [address] [place] [address], [place] [address] Aug, [facility] [address] [id number] [address] [place] [address], [place] [address] Jul, [facility] [address] [id number] [address] [place] [address] Jul, [facility] [address] [id number] [address] [place] [address], [place] [address] Jul, [facility] [address] [id number] [address] [place] [address], [place] [address] Jul, [facility] [address] [id number] [address] [place] [address], [place] [address] Jul, [facility] [address] [id number] [address] [place] [address], [place] [address] Jul, [facility] [address] [id number] [address] [place] [address], [place] [address] Jul, [facility] [address] [id number] [address] [place] [address], [place] [address] Jul, [facility] [address] [id number] [address] [place] [address], [place] [address] Jul, [facility] [address] [id number] [address] [place] [address], [place] [address] Jul, [facility] [address] [id number] [address] [place] [address], [place] [address] Jul, [facility] [address] [id number] [address] [place] [address], [place] [address] Jul, [facility] [address] [id number] [address] [place] [address], [place] [address] Jul, [facility] [address] [id number] [address] [place] [address], [place] [address] Jul, [facility] [address] [id number] [address] [place] [address], [place] [address] Jul, [facility] [address] [id number] [address] [place] [address], [place] [address] Jun, [facility] [address] [id number] [address] [place] [address] 18 Jun, 2013 [facility] [address] [id number] [address] [place] [address], [place] [address] Jun, [facility] [address] [id number] [address] [place] [address] Jun, [facility] [address] [id number] [address] [place] [address], [place] [address] May, [facility] [address] [id number] [address] [place] [address], [place] [address] May, [facility] [address] [id number] [id number] May, [facility] [address] [id number] [address] [place] [address] May, [facility] [address] [id number] [address] [place] [address] May, [facility] [address] [id number] [address] [place] [address] May, [facility] [address] [id number] [address] [place] [address] May, [facility] [address] [id number] [address] [place] [address] May, [facility] [address] [id number] [address] [place] [address] May, [facility] [address] [id number] [place] [id number] May, [facility] [address] [id number] [address] [place] [address], [place] [address] May, [facility] [address] [id number] [place] [id number] May, [facility] [address] [id number] [address] [place] [address] May, [facility] [address] [id number] [place] [id number] May, [facility] [address] [facility] [id number] [address] [place] [address] May, IMMUNIZATIONS No Known Immunizations SOCIAL HISTORY [...] leukocytosis--[facility] 01/08/16 Hospitalization History pseudomemranous colitis, sepsis--[facility] 04/21/2016 Hospitalization History C Diff--[facility] 05/10/2016 Hospitalization History sepsis, pneumonia, diarrhea--[facility] Hospital[facility] History recurrent cdiff, pneumonia-[facility] Hospitalization History sepsis,pneumonia- [facility] 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
--- OUTSIDE RECORDS SUMMARY | 2019-11-07 10:12 | XMS REPORT ---
Author Author Lona Kauffman Doctor Organization [facility] Address Unknown Phone Unavailable Care Team Providers Care Flower Cheniller Name Role Phone Migration, Doctor Unavailable Unavailable PROBLEMS Type Condition ICD9-CM Code QAO51-MN Code Onset Dates Condition S tatus SNOMED Code Problem Dysphagia, unspecified dysphagia R13.10 Active 81620342 Problem History of cerebrovascular accident with current residual effects I69.90 Active 677351155 Problem Peripheral vascular disease, unspecified I73.9 Active 613722028 Problem Osteoarthritis of foot M19.079 Active 955176784 Problem 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 983351420 Problem COPD (chronic obstructive pulmonary disease) J44.9 Active 13231224 Problem Hypertension I10 Active 5601176 3 Problem Primary insomnia F51.01 Active 397 2004 Problem Hx of Clostridium difficile infection Z86.19 Active 692718644 Problem Chronic obstructive pulmon disease w acute lower resp infc t J44.0 Active 568630536 Problem History of arthroplasty of right knee Z96.651 Active 762806323 Problem Leg pain, left M79.605 Active 98117 7008 Problem Status post partial amputation of left foot Z89.43 2 Active 719820947 Problem Edema R60.9 Active 154159006 Problem Tobacco abuse, 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 Ac tive 105680041 Problem Anxiety F41.9 Active 50544285 Problem Chronic pain syndrome G89.4 Active 660938923 Problem Anemia, unspecified type D64.9 Activ e 510310069 Problem Depression, unspecified depression type F32.9 Active 63199276 Problem Other chronic pain G89.29 Active 8 8135846 Problem Iron deficiency anemia, unspecified iron deficiency an emia type D50.9 Active 88082281 Problem Insomnia, unspecified G47.00 Active 106349064 Problem Seasonal allergic rhinitis due to pollen J30.1 Active 55698796 Problem History of oral cancer Z85.819 Active 848859868 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 36 1927753 Problem Atrial fibrillation I48.91 Active 15535699 Problem Chronic obstructive pulmonary disease with (acute) exa cerbation J44.1 Active 749949673 Problem Rheumatoid arthritis M06.9 Active 44780275 Problem Dysthymia F34.1 Active 17814455 Problem Neuropathy G62.9 Active 812214509 Problem Rheumatoid arthritis with po sitive rheumatoid factor, involving unspecified site M05.9 Active 71940228 Problem Hemiplegia and hemiparesis f ollowing cerebral infarction affecting right dominant side I69.351 Active 612385517 Problem Cancer of neck C76.0 Active 87600 9000 ALLERGIES No Information ENCOUNTERS Encounter Location Date Diagnosis [facility] [address] [id number] [address] [place] [id number] November, [facility] [address] [id number] [address] [place] [id number] Oct, [facility] [address] [facility] [id number] [address] [place] [id number] Oct, Thrush B37.0 [facility] [address] [facility] [id number] [address] [place] [id number] 08 Oct, 2019 [facility] [address] [facility] [id number] [address] [place] [phone] Sep, [facility] [address] [facility] [id number] [address] [place] [id number] Sep, Chronic pain syndrome G89.4 and Rheumatoid arthritis with positive rheumatoid factor, involving unspecified site M05.9 [facility] [address] [facility] [id number] [address] [place] [phone] Sep, [facility] [address] [facility] [id number] [address] [place] [id number] Aug, Chronic pain syndrome G89.[id number] [place] [phone] 19 Aug, 2019 Chronic obstructive pulmonar y disease with (acute) exacerbation J44.1 [facility] [address] [facility] [id number] [address] [place] [id number] 12 Aug, 2019 Single subsegmental pulmonar y embolism without acute cor pulmonale I26.93 ; Rheumatoid arthritis with positive rheumatoid factor, involving unspecified site M05.9 ; Chronic pain syndrome G89.4 ; Leg pain, left M79.605 and 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 [facility] [address] [id number] [address] [place] [id number] Aug, [facility] [address] [id number] [address] [place] [phone] Aug, 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 [facility] [address] [id number] [address] [place] [id number] 07 Aug, 2019 Chronic pain syndrome G89.4 [facility] [address] [id number] [address] [place] [phone] Jul, Primary insomnia F51.01 [facility] [address] [id number] [address] [place] [phone] Jul, Chronic pain syndrome G89.4 [facility] [address] [id number] [address] [place] [id number] Jul, [facility] [address] [id number] [address] [place] [id number] Jul, [facility] [address] [id number] [address] [place] [id number] Jul, Rheumatoid arthritis with po sitive rheumatoid factor, involving unspecified site M05.9 and Chronic pain syndrome G89.4 [facility] [address] [id number] [address] [place] [id number] Jul, [facility] [address] [id number] [address] [place] [phone] Jun, Rheumatoid arthritis with po sitive rheumatoid factor, involving unspecified site M05.9 [facility] [address] [id number] [address] [place] [id number] Jun, Chronic pain syndrome G89.4 ; Rheumatoid arthritis with positive rheumatoid factor, involving unspecified site M05.9 and Anxiety F41.9 [facility] [address] [id number] [address] [place] [phone] Jun, [facility] [address] [id number] [address] [place] [phone] Jun, Hemorrhoids, unspecified hem orrhoid type K64.9 [facility] [address] [id number] [address] [place] [id number] Jun, Hemorrhoids, unspecified hem orrhoid type K64.9 ; Cancer of neck C76.0 and Drug-induced constipation K59.03 [facility] [address] [id number] [address] [place] [phone] Jun, [facility] [address] [id number] [address] [place] [phone] Jun, [facility] [address] [facility] [id number] [address] [place] [id number] Jun, Rheumatoid arthritis with po sitive rheumatoid factor, involving unspecified site M05.9 [facility] [address] [id number] [address] [place] [phone] May, [facility] [address] [id number] [address] [place] [id number] May, Rheumatoid arthritis with po sitive rheumatoid factor, involving unspecified site M05.9 [facility] [address] [id number] [address] [place] [phone] Apr, Primary insomnia F51.01 [facility] [address] [id number] [address] [place] [id number] Apr, Rheumatoid arthritis with po sitive rheumatoid factor, involving unspecified site M05.9 [facility] [address] [id number] [address] [place] [phone] Mar, [facility] [address] [id number] [address] [place] [phone] Mar, [facility] [address] [id number] [address] [place] [phone] Mar, Rheumatoid arthritis with po sitive rheumatoid factor, involving unspecified site M05.9 ; Atrial fibrillation I48.91 ; Chronic pain syndrome G89.4 ; Iron deficiency anemia, unspecified iron deficiency anemia type D50.9 and Hemiplegia and hemiparesis following cerebral infarction affecting right dominant side I69.351 [facility] [address] [id number] [address] [place] [id number] Mar, Chronic pain syndrome G89.4 and Primary insomnia F51.01 [place] [address] [id number] [address] [place] [id number] Mar, Rheumatoid arthritis with po sitive rheumatoid factor, involving unspecified site M05.9 [facility] [address] [id number] [address] [place] [id number] Feb, Rheumatoid arthritis with po sitive rheumatoid factor, involving unspecified site M05.9 ; Chronic pain syndrome G89.4 ; Atrial fibrillation I48.91 ; Iron deficiency anemia, unspecified iron deficiency anemia type D50.9 ; Hemiplegia and hemiparesis following cerebral infarction affecting right dominant side I69.351 and Primary insomnia F51.01 [facility] [address] [id number] [address] [place] [id number] Feb, Chronic pain syndrome G89.4 [facility] [address] [id number] [address] [place] [phone] Jan, Chronic pain syndrome G89.4 [facility] [address] [id number] [address] [place] [phone] Jan, [facility] [address] [id number] [address] [place] [phone] Jan, [facility] [address] [id number] [address] [place] [phone] Dec, [facility] [address] [id number] [address] [place] [phone] Dec, Chronic pain syndrome G89.4 [facility] [address] [id number] [address] [place] [phone] Dec, [facility] [address] [id number] [address] [place] [phone] November, Chronic pain syndrome G89.4 [facility] [address] [id number] [address] [place] [id number] Oct, Chronic pain syndrome G89.4 [facility] [address] [id number] [address] [place] [phone] Oct, [facility] [address] [id number] [address] [place] [phone] Sep, Chronic pain syndrome G89.4 [facility] [address] [id number] [address] [place] [address] Sep, Leg pain, left M79.605 ; Rig ht leg pain M79.604 and Reactive cervical nodes R59.0 [facility] [address] [id number] [address] [place] [id number] Sep, [facility] [address] [id number] [address] [place] [phone] Sep, Neuropathy G62.9 [facility] [address] [id number] [place] [id number] Sep, [facility] [address] [id number] [address] [place] [phone] Sep, Lymphadenopathy of left cerv ical region R59.0 [facility] [address] [id number] [address] [place] [phone] Sep, Lymphadenopathy of left cerv ical region R59.0 and Neuropathy G62.9 [facility] [address] [id number] [address] [place] [phone] Aug, Chronic pain syndrome G89.4 [facility] [address] [phone] Aug, [facility] [address] [address] Aug, Peripheral vascular disease, unspecified I73.9 ; Other chronic pain G89.29 ; Chronic obstructive pulmon disease w acute lower resp infct J44.0 and Primary insomnia F51.01 [place] [address] [phone] Aug, Chronic pain syndrome G89.4 [place] [address] [address] Jul, Chronic pain syndrome G89.4 [place] [address] [address] Jun, Chronic pain syndrome G89.4 [place] [address] [address] May, Chronic pain syndrome G89.4 [facility] [address] [address] Apr, Cough R05 and Viral illness B34.9 [place] [address] [address] Apr, Encounter for immunization Z 23 [place] [address] [address] Apr, Chronic pain syndrome G89.4 [facility] [address] [address] 07 Apr, 2018 Left acute otitis media H66. 92 [place] [address] [address] Mar, Rheumatoid arthritis M06.9 ; Other chronic pain G89.29 ; History of oral cancer Z85.819 and History of tachycardia Z87.898 [facility] [address] [address] Mar, Chronic pain syndrome G89.4 [facility] [address] [id number] [address] [place] [id number] Feb, Chronic pain syndrome G89.4 [facility] [address] [id number] [address] [place] [id number] Feb, Chronic pain syndrome G89.4 [facility] [address] [id number] [address] [place] [id number] Jan, Chronic pain syndrome G89.4 [facility] [address] [id number] [address] [place] [id number] Jan, [facility] [address] [id number] [address] [place] [phone] Dec, Chronic pain syndrome G89.4 [facility] [address] [id number] [address] [place] [id number] November, Chronic pain syndrome G89.4 [facility] [address] [id number] [address] [place] [phone] November, [facility] [address] [id number] [address] [place] [phone] Oct, Chronic pain syndrome G89.4 [facility] [address] [id number] [address] [place] [id number] Oct, [facility] [address] [id number] [address] [place] [phone] Oct, Chronic pain syndrome G89.4 [facility] [address] [id number] [address] [place] [id number] Oct, [facility] [address] [id number] [address] [place] [phone] Oct, [facility] [address] [id number] [address] [place] [id number] Sep, Left upper quadrant pain R10 .12 ; Chronic pain syndrome G89.4 ; Left lower quadrant pain R10.32 ; Other chronic pain G89.29 ; Sacrococcygeal disorders, not elsewhere classified M53.3 and Seasonal allergic rhinitis due to pollen J30.1 [facility] [address] [facility] [id number] [address] [place] [phone] Sep, Chronic pain syndrome G89.4 [facility] [address] [facility] [id number] [address] [place] [phone] Sep, [facility] [address] [facility] [id number] [address] [place] [id number] Aug, Chronic pain syndrome G89.4 [facility] [address] [facility] [id number] [address] [place] [id number] Aug, [facility] [address] [facility] [id number] [address] [place] [id number] Aug, Insomnia, unspecified G47.00 [facility] [address] [facility] [id number] [address] [place] [id number] Jul, [facility] [address] [facility] [id number] [address] [place] [id number] Jul, [facility] [address] [facility] [id number] [address] [place] [phone] Jul, Chronic pain syndrome G89.4 [facility] [address] [facility] [id number] [address] [place] [phone] Jun, Chronic pain syndrome G89.4 [facility] [address] [facility] [id number] [address] [place] [phone] Jun, Chronic pain syndrome G89.4 [facility] [address] [facility] [id number] [address] [place] [id number] May, [facility] [address] [facility] [id number] [address] [place] [address] May, Shortness of breath R06.02 ; Peripheral vascular disease, unspecified I73.9 ; Pain in right knee M25.561 ; Other chronic pain G89.29 ; Chest wall pain R07.89 ; Chronic pain syndrome G89.4 ; Primary insomnia F51.01 and Ear pain, left H92.02 [facility] [address] [id number] [address] [place] [address] May, Anxiety F41.9 [facility] [address] [facility] [id number] [address] [place] [phone] Apr, Pneumonia due to infectious organism, unspecified laterality, unspecified part of lung J18.9 ; Hypoxia R09.02 ; Bradycardia R00.1 ; History of Clostridium difficile Z87.19 and Primary insomnia F51.01 [facility] [address] [id number] [address] [place] [phone] Apr, Anxiety F41.9 [facility] [address] [id number] [address] [place] [phone] Apr, [facility] [address] [id number] [address] [place] [phone] Mar, Anxiety F41.9 [place] [id number] [facility] [id number] [address] [place] [id number] Feb, [place] [address] [facility] [id number] [address] [place] [address] Feb, [facility] [address] [id number] [address] [place] [phone] Feb, Abnormal finding on urinalys is R82.90 [facility] [address] [id number] [address] [place] [address] Feb, [facility] [address] [id number] [address] [place] [id number] Feb, Shortness of breath R06.02 ; Tachycardia R00.0 ; Cough R05 ; Ill feeling R68.89 and Abnormal finding on urinalysis R82.90 [place] [address] [facility] [id number] [address] [place] [id number] Feb, Anxiety F41.9 [facility] [address] [facility] [id number] [address] [place] [address] Feb, Sore throat J02.9 and Acute diffuse otitis externa of left ear H60.312 [facility] [address] [facility] [id number] [address] [place] [phone] Jan, [facility] [address] [facility] [id number] [address] [place] [id number] Jan, [facility] [address] [id number] [facility] [place] [id number] Jan, [facility] [address] [facility] [id number] [address] [place] [id number] Jan, Depression, unspecified depr ession type F32.9 ; Chronic bronchitis, unspecified chronic bronchitis type J42 ; Chronic pain syndrome G89.4 and Anxiety F41.9 [facility] [address] [facility] [id number] [address] [place] [id number] Jan, [facility] [address] [facility] [id number] [address] [place] [phone] Jan, [facility] [address] [facility] [id number] [address] [place] [phone] Jan, [facility] [address] [id number] [facility] [place] [id number] Jan, Chronic pain syndrome G89.4 [employer] [address], [place] [id number] Dec History of right knee surgery Z98.890 [facility] [address] [facility] [id number] [address] [place] [id number] Dec, [facility] [address] [facility] [id number] [address] [place] [id number] Dec, Chronic pain syndrome G89.4 [facility] [address] [facility] [id number] [address] [place] [phone] November, Anxiety F41.9 [facility] [address] [facility] [id number] [address] [place] [id number] 16 Nov, 2016 Acute cystitis without hemat uria N30.00 [facility] [address] [facility] [id number] [address] [place] [address] 11 Nov, 2016 Fever, unspecified fever cau se R50.9 and Acute cystitis without hematuria N30.00 [place] [address] [place] [id number] [address] [place] [address] November, Chronic pain syndrome G89.4 [place] [address] [place] [id number] [place] [address] Oct, Anxiety F41.9 [place] [address] [address] Oct, Chronic pain syndrome G89.4 [place] [address] [address] Oct, Chronic pain syndrome G89.4 [place] [address] [place] [id number] [address] [place] [address] Oct, [place] [address] [address] Oct, Chronic pain syndrome G89.4 ; Pain in right knee M25.561 ; History of Clostridium difficile Z87.19 ; Iron deficiency anemia, unspecified iron deficiency anemia type D50.9 ; Peripheral vascular disease, unspecified I73.9 and Atrial fibrillation I48.91 [place] [address] [place] [id number] [address] [place] [id number] Oct, [place] [address] [address] Oct, Chronic pain syndrome G89.4 [place] [address] [place] [id number] [address] [place] [id number] Sep, [place] [address] [address] Sep, Depression, unspecified depr ession type F32.9 ; Chronic bronchitis, unspecified chronic bronchitis type J42 ; Chronic pain syndrome G89.4 and Anxiety F41.9 [employer] [address] [id number] Sep History of Clostridium difficile infection Z86.19 and History of stroke Z86.73 [facility] [address] [id number] [id number] Sep, Anxiety F41.9 [facility] [address] [facility] [id number] [address] [place] [id number] Sep, Chronic pain syndrome G89.4 [facility] [address] [facility] [id number] [address] [place] [phone] Sep, [facility] [id number] [place] [id number] Sep, [facility] [address] [facility] [id number] [address] [place] [phone] Aug, Anxiety F41.9 [facility] [address] [facility] [id number] [address] [place] [id number] Aug, Anxiety F41.9 [facility] [address] [facility] [id number] [address] [place] [phone] 16 Aug, 2016 [facility] [address] [facility] [id number] [address] [place] [id number] 14 Aug, 2016 Acute knee pain, unspecified laterality M25.569 [facility] [address] [facility] [id number] [address] [place] [id number] 13 Aug, 2016 [facility] [address] [facility] [id number] [address] [place] [id number] 09 Aug, 2016 Chronic pain syndrome G89.4 [facility] [address] [facility] [id number] [address] [place] [id number] 08 Aug, 2016 [facility] [address] [facility] [id number] [address] [place] [id number] Aug, [facility] [address] [id number] [address] [place] [id number] Jul, [facility] [address] [facility] [id number] [address] [place] [phone] Jul, Anxiety F41.9 [facility] [address] [id number] [address] [place] [id number] Jul, Clostridium difficile diarrh ea A04.7 [facility] [address] [id number] Jul Clostridium difficile diarrhea A04.7 ; Chronic pain syndrome G89.4 ; Chronic obstructive pulmon disease w acute lower resp infct J44.0 and Pain in right knee M25.561 [facility] [id number] [place] [id number] Jul, [facility] [address] [facility] [id number] [address] [place] [phone] Jul, Anxiety F41.9 and Chronic pa in syndrome G89.4 [facility] [address] [id number] [address] [place] [phone] Jun, Anxiety F41.9 [facility] [address] [facility] [id number] [address] [place] [id number] Jun, Rheumatoid arthritis 714.0 [facility] [address] [facility] [id number] [address] [place] [phone] Jun, Chronic pain syndrome G89.4 [facility] [address] [id number] [address] [place] [phone] Jun, [facility] [address] [facility] [id number] [address] [place] [id number] Jun, [facility] [address] [facility] [id number] [address] [place] [phone] Jun, History of pneumonia Z87.01 and History of Clostridium difficile Z87.19 [facility] [address] [id number] [address] [place] [phone] Jun, [facility] [address] [id number] [address] [place] [id number] May, [facility] [address] [id number] [address] [place] [id number] May, Anxiety F41.9 [facility] [address] [facility] [id number] [address] [place] [phone] May, Chronic pain syndrome G89.4 [facility] [address] [id number] [address] [place] [id number] May, Chronic bronchitis, unspecif ied chronic bronchitis type J42 [facility] [address] [facility] [id number] [address] [place] [phone] May, [facility] [address] [facility] [id number] [address] [place] [address] May, C. difficile diarrhea A04.7 ; Peripheral edema R60.9 ; COPD (chronic obstructive pulmonary disease) J44.9 ; Rheumatoid arthritis, involving unspecified site, unspecified rheumatoid factor presence M06.9 ; Pain in right knee M25.561 ; Pain in left knee M25.562 and Other chronic pain G89.29 [facility] [address] [facility] [id number] [address] [place] [phone] May, [facility] [address] [facility] [id number] [address] [place] [phone] May, [facility] [address] [facility] [id number] [address] [place] [address] May, Anxiety F41.9 [facility] [address] [facility] [id number] [address] [place] [phone] Apr, [facility] [address] [facility] [id number] [address] [place] [id number] Apr, Chronic pain syndrome G89.4 [facility] [address] [facility] [id number] [address] [place] [id number] Apr, Leg pain, left M79.605 [facility] [address] [id number] [address] [place] [id number] Apr, [facility] [address] [id number] [address] [place] [id number] Apr, [facility] [address] [facility] [id number] [address] [place] [id number] Apr, [facility] [address] [id number] [address] [place] [phone] Mar, Chronic pain syndrome G89.4 [place] [address] [facility] [id number] [address] [place] [id number] Mar, Acute frontal sinusitis, rec urrence not specified J01.10 [place] [address] [facility] [id number] [address] [place] [id number] Mar, Iron deficiency anemia, unsp ecified iron deficiency anemia type D50.9 ; Rheumatoid arthritis with positive rheumatoid factor, involving unspecified site M05.9 and Depression, unspecified depression type F32.9 [place] [address] [facility] [id number] [address] [place] [phone] Mar, Iron deficiency anemia, unsp ecified iron deficiency anemia type D50.9 ; Depression, unspecified depression type F32.9 and Rheumatoid arthritis with positive rheumatoid factor, involving unspecified site M05.9 [place] [address] [id number] [address] [place] [id number] Mar, [facility] [address] [facility] [id number] [address] [place] [phone] Mar, [facility] [address] [facility] [id number] [address] [place] [id number] Feb, Chronic pain syndrome G89.4 [facility] [address] [facility] [id number] [address] [place] [id number] Feb, Status post partial amputati on of left foot Z89.432 ; Status post CVA Z86.73 ; Hemiplegia G81.90 and Anemia, unspecified type D64.9 [place] [id number] [facility] [id number] [address] [place] [phone] Feb, [facility] [address] [facility] [id number] [address] [place] [id number] Feb, Anemia, unspecified type D64 .9 [place] [address] [facility] [id number] [address] [place] [id number] Feb, [place] [address] [facility] [id number] [address] [place] [phone] Feb, Iron deficiency anemia, unsp ecified iron deficiency anemia type D50.9 [place] [address] [facility] [id number] [address] [place] [phone] Feb, [place] [address] [facility] [id number] [address] [place] [phone] Feb, Chronic bronchitis, unspecif ied chronic bronchitis type J42 [place] [address] [facility] [id number] [address] [place] [id number] Feb, Iron deficiency anemia, unsp ecified iron deficiency anemia type D50.9 [place] [address] [facility] [id number] [address] [place] [address] Feb, Chronic pain syndrome G89.4 [place] [address] [facility] [id number] [address] [place] [address] Feb, Anemia, unspecified type D64 .9 and Hypoxia R09.02 [place] [address] [facility] [id number] [address] [place] [phone] Feb, Anemia, unspecified type D64 .9 [facility] [address] [facility] [id number] [address] [place] [phone] Jan, [facility] [address] [facility] [id number] [address] [place] [phone] Jan, Anemia, unspecified type D64 .9 [facility] [address] [id number] [address] [place] [phone] Jan, [facility] [address] [facility] [id number] [address] [place] [id number] Jan, Anemia, unspecified type D64 .9 [facility] [address] [id number] [address] [place] [phone] Jan, Anemia, unspecified type D64 .9 [facility] [address] [id number] [address] [place] [id number] Jan, [facility] [address] [facility] [id number] [address] [place] [id number] Jan, Anemia, unspecified type D64 .9 [facility] [address] [facility] [id number] [address] [place] [phone] Jan, [facility] [address] [facility] [id number] [address] [place] [phone] Jan, [facility] [address] [facility] [id number] [address] [place] [phone] Jan, Chronic pain syndrome G89.4 [facility] [address] [facility] [id number] [address] [place] [phone] Jan, Anemia, unspecified type D64 .9 [facility] [address] [facility] [id number] [address] [place] [id number] 05 Jan, 2016 Dysthymia F34.1 ; Cervicalgi a M54.2 ; Fatigue, unspecified type R53.83 and Depression, unspecified depression type F32.9 [facility] [address] [facility] [id number] [address] [place] [phone] Dec, [facility] [address] [facility] [id number] [address] [place] [id number] 14 Dec, 2015 Anxiety F41.9 [facility] [address] [facility] [id number] [address] [place] [id number] Dec, Chronic pain syndrome G89.4 [facility] [address] [facility] [id number] [address] [place] [phone] November, [facility] [address] [place] [id number] [address] [place] [id number] November, Edema R60.9 and Dizziness R4 2 [place] [address] [place] [id number] [place] [phone] November, [facility] [address] [place] [id number] [place] [phone] November, [place] [address] [phone] November, COPD (chronic obstructive pu lmonary disease) J44.9 ; Increased tracheal secretions J39.8 and Edema R60.9 [facility] [address] [phone] Oct, [facility] [address] [id number] Oct, Shortness of breath R06.02 a nd Edema R60.9 [place] [address] [place] [id number] [address] [place] [address] Oct, Chronic bronchitis, unspecif ied chronic bronchitis type J42 ; Peripheral vascular disease, unspecified I73.9 ; Rheumatoid arthritis M06.9 and Atrial fibrillation I48.91 [facility] [id number] [place] [phone] Oct, [facility] [id number] [place] [id number] Oct, [place] [address] [id number] Oct, [facility] [id number] [place] [id number] Oct, [facility] [address] [place] [id number] [address] [place] [phone] Oct, COPD exacerbation J44.1 [facility] [address] [facility] [id number] [address] [place] [phone] 28 Sep, 2015 [facility] [address] [facility] [id number] [address] [place] [phone] Sep, [facility] [address] [facility] [id number] [address] [place] [id number] Sep, [facility] [address] [facility] [id number] [address] [place] [phone] Aug, [facility] [address] [facility] [id number] [address] [place] [phone] Aug, 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 and P VD (peripheral vascular disease) I73.9 [facility] [address] [facility] [id number] [address] [place] [id number] Aug, Bronchitis J40 ; COPD (chron ic obstructive pulmonary disease) J44.9 and Dysthymia F34.1 [facility] [address] [facility] [id number] [address] [place] [phone] Aug, [facility] [address] [facility] [id number] [address] [place] [phone] Jul, [facility] [address] [facility] [id number] [address] [place] [id number] Jul, [facility] [address] [facility] [id number] [address] [place] [phone] Jul, [facility] [address] [facility] [id number] [address] [place] [phone] Jun, [facility] [address] [facility] [id number] [address] [place] [id number] Jun, [facility] [address] [facility] [id number] [address] [place] [id number] Jun, Peripheral vascular disease I73.9 [facility] [address] [id number] [address] [place] [id number] Jun, [facility] [address] [id number] [address] [place] [id number] Jun, [facility] [address] [id number] [address] [place] [address] Jun, Leg pain, left M79.605 ; Dys phagia, unspecified dysphagia R13.10 ; Insomnia, unspecified type G47.00 ; PVD (peripheral vascular disease) I73.9 and 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 [facility] [address] [id number] [address] [place] [phone] May, [facility] [address] [id number] [address] [place] [phone] May, [facility] [address] [id number] [address] [place] [phone] May, [facility] [address] [id number] [address] [place] [id number] May, [facility] [address] [id number] [address] [place] [phone] May, [facility] [address] [id number] [address] [place] [phone] Apr, [facility] [address] [id number] [address] [place] [phone] Apr, [facility] [address] [id number] [address] [place] [id number] Mar, [facility] [address] [id number] [address] [place] [id number] Mar, [facility] [address] [id number] [address] [place] [id number] Feb, [facility] [address] [id number] [address] [place] [id number] Feb, Nicotine abuse 305.1 ; Arthr algia 719.40 and 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 [facility] [address] [id number] [address] [place] [phone] Feb, [facility] [address] [id number] [address] [place] [id number] Jan, [facility] [address] [id number] [address] [place] [phone] Jan, [facility] [address] [id number] [address] [place] [phone] Jan, [facility] [address] [id number] [address] [place] [id number] Jan, [facility] [address] [facility] [id number] [address] [place] [address] Jan, 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 ; Rhe umatoid arthritis 714.0 ; Hypertension 401.9 ; GERD (gastroesophageal reflux disease) 530.81 ; Nicotine addiction 305.1 and Leukocytosis 288.60 [facility] [address] [id number] [address] [place] [id number] Jan, [facility] [address] [facility] [id number] [address] [place] [phone] Jan, [facility] [address] [id number] [address] [place] [id number] Jan, [facility] [address] [id number] [address] [place] [id number] Jan, [facility] [address] [id number] [address] [place] [phone] Jan, [facility] [address] [id number] [address] [place] [phone] Dec, [facility] [address] [facility] [id number] [address] [place] [phone] Dec, [facility] [address] [place] [id number] [address] [place] [phone] Dec, [facility] [address] [facility] [id number] [address] [place] [phone] Dec, [facility] [address] [place] [id number] [address] [place] [id number] November, [facility] [address] [place] [id number] [address] [place] [id number] November, [facility] [address] [place] [id number] [address] [place] [address] November, Shortness of breath 786.05 [facility] [address] [address] November, Rheumatoid arthritis 714.0 [facility] [address] [place] [id number] [address] [place] [address] November, 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 [facility] [address] [place] [id number] [address] [place] [address] November, Neuropathy 355.9 ; Insomnia 780.52 ; Dysthymia 300.4 ; Shortness of breath 786.05 ; Rheumatoid arthritis 714.0 and Nausea 787.02 [facility] [address] [place] [id number] [address] [place] [phone] November, [facility] [address] [place] [id number] [address] [place] [phone] November, [facility] [address] [place] [id number] [address] [place] [phone] Oct, [facility] [address] [facility] [id number] [address] [place] [phone] Oct, [facility] [address] [place] [id number] [address] [place] [phone] Oct, [facility] [address] [place] [id number] [address] [place] [phone] Oct, [facility] [address] [id number] [address] [place] [address], [place] [address] Sep, [facility] [address] [id number] [address] [place] [address], [place] [id number] Sep, [facility] [address] [id number] [address] [place] [address], [place] [id number] Sep, [facility] [address] [id number] [address] [place] [address], [place] [id number] Sep, [facility] [address] [id number] [address] [place] [address], [place] [id number] Sep, [facility] [address] [id number] [address] [place] [address], [place] [id number] Sep, [facility] [address] [id number] [address] [place] [address], [place] [id number] Sep, [facility] [address] [id number] [address] [place] [address], [place] [id number] Sep, [facility] [address] [id number] [address] [place] [address], [place] [address] Aug, [facility] [address] [id number] [address] [place] [address], [place] [address] Aug, [facility] [address] [id number] [address] [place] [address], [place] [id number] Aug, [facility] [address] [id number] [address] [place] [address], [place] [address] Aug, [facility] [address] [id number] [address] [place] [address], [place] [address] Aug, [facility] [address] [id number] [address] [place] [address], [place] [id number] Aug, [facility] [address] [id number] [address] [place] [address], [place] [id number] Jul, [facility] [address] [id number] [address] [place] [address], [place] [address] Jul, [facility] [address] [id number] [address] [place] [address], [place] [id number] Jul, [facility] [address] [id number] [address] [place] [address], [place] [address] Jul, [facility] [address] [id number] [address] [place] [address], [place] [address] Jul, [facility] [address] [id number] [address] [place] [address], [place] [address] Jul, [facility] [address] [id number] [address] [place] [address], [place] [address] Jul, [facility] [address] [id number] [address] [place] [address], [place] [address] Jul, [facility] [address] [id number] [address] [place] [address], [place] [id number] Jul, [facility] [address] [id number] [address] [place] [address], [place] [address] Jul, [facility] [address] [id number] [address] [place] [address], [place] [address] Jun, [facility] [address] [id number] [address] [place] [address], [place] [address] Jun, [facility] [address] [id number] [address] [place] [address], [place] [address] Jun, [facility] [address] [id number] [address] [place] [address], [place] [id number] Jun, [facility] [address] [id number] [address] [place] [address], [place] [address] Jun, [facility] [address] [id number] [address] [place] [address], [place] [id number] Jun, [facility] [address] [id number] [address] [place] [address], [place] [id number] Jun, [facility] [address] [id number] [address] [place] [address], [place] [id number] Jun, [facility] [address] [id number] [address] [place] [address], [place] [id number] Jun, [facility] [address] [id number] [address] [place] [address], [place] [id number] Jun, [facility] [address] [id number] [address] [place] [address], [place] [id number] Jun, [facility] [address] [id number] [address] [place] [address], [place] [id number] Jun, [facility] [address] [id number] [address] [place] [address], [place] [id number] Jun, [facility] [address] [id number] [address] [place] [address], [place] [id number] Jun, [facility] [address] [id number] [address] [place] [address], [place] [id number] Jun, [facility] [address] [id number] [address] [place] [address], [place] [id number] Jun, [facility] [address] [id number] [address] [place] [address], [place] [id number] May, [facility] [address] [id number] [address] [place] [address], [place] [id number] May, [facility] [address] [id number] [address] [place] [address], [place] [id number] May, [facility] [address] [id number] [address] [place] [address], [place] [id number] May, [facility] [address] [id number] [address] [place] [address], [place] [id number] May, [facility] [address] [id number] [address] [place] [address], [place] [id number] May, [facility] [address] [id number] [address] [place] [address], [place] [id number] May, [facility] [address] [id number] [address] [place] [address], [place] [id number] May, [facility] [address] [id number] [address] [place] [address], [place] [id number] May, [facility] [address] [id number] [address] [place] [address], [place] [id number] Apr, [facility] [address] [id number] [address] [place] [address], [place] [id number] Apr, [facility] [address] [id number] [address] [place] [address], [place] [id number] Apr, [facility] [address] [id number] [address] [place] [address], [place] [id number] Apr, [facility] [address] [id number] [address] [place] [address], [place] [id number] Apr, [facility] [address] [id number] [address] [place] [address], [place] [id number] Apr, [facility] [address] [id number] [address] [place] [address], [place] [id number] Apr, [facility] [address] [id number] [address] [place] [id number] Apr, [facility] [address] [id number] [address] [place] [id number] Apr, [facility] [address] [id number] [address] [place] [id number] Apr, [facility] [address] [id number] [address] [place] [address], [place] [id number] Apr, [facility] [address] [id number] [address] [place] [address] [id number] Apr, [facility] [address] [id number] [address] [place] [id number] Mar, [facility] [address] [id number] [address] [place] [id number] 22 Mar, 2013 [facility] [address] [id number] [address] [place] [address], [place] [id number] Mar, 2013 [facility] [address] [id number] [address] [place] [address], [place] [address] Mar, 2013 [facility] [address] [id number] [address] [place] [address], [place] [id number] Mar, 2013 [facility] [address] [id number] [address] [place] [address], [place] [address] Mar, 2013 [facility] [address] [id number] [address] [place] [address], [place] [id number] Mar, 2013 [facility] [address] [id number] [address] [place] [address], [place] [address] Mar, [facility] [address] [id number] [address] [place] [address], [place] [address] Mar, [facility] [address] [id number] [address] [place] [address], [place] [address] Mar, [facility] [address] [id number] [address] [place] [address], [place] [address] Feb, [facility] [address] [id number] [address] [place] [address], [place] [id number] Feb, [facility] [address] [id number] [address] [place] [address], [place] [address] Feb, [facility] [address] [id number] [address] [place] [address], [place] [address] Feb, [facility] [address] [id number] [address] [place] [address], [place] [address] Feb, [facility] [address] [id number] [address] [place] [address], [place] [address] Feb, [facility] [address] [id number] [address] [place] [address], [place] [id number] Feb, [facility] [address] [id number] [facility] [place] [address] Feb, [facility] [address] [id number] [facility] [place] [address] Feb, [facility] [address] [id number] [facility] [place] [address] Feb, [facility] [address] [id number] [facility] [place] [address] Feb, [facility] [address] [id number] [facility] [place] [address] Feb, [facility] [address] [id number] [address] [place] [address], [place] [address] Feb, [facility] [address] [id number] [address] [place] [address], [place] [address] Feb, [facility] [address] [id number] [address] [place] [address], [place] [address] Feb, [facility] [address] [id number] [address] [place] [address], [place] [address] Feb, [facility] [address] [id number] [address] [place] [address], [place] [address] Jan, [facility] [address] [id number] [address] [place] [address], [place] [address] Jan, [facility] [address] [id number] [address] [place] [address], [place] [address] Jan, [facility] [address] [id number] [address] [place] [address], [place] [address] Jan, [facility] [address] [id number] [address] [place] [address], [place] [address] Jan, [facility] [address] [id number] [address] [place] [address], [place] [address] Jan, [facility] [address] [id number] [address] [place] [address], [place] [address] Dec, [facility] [address] [id number] [facility] [place] [address] Dec, [facility] [address] [id number] [address] [place] [address], [place] [address] Dec, [facility] [address] [id number] [address] [place] [address], [place] [address] Dec, [facility] [address] [id number] [address] [place] [address], [place] [address] Dec, [facility] [address] [id number] [address] [place] [address], [place] [id number] Dec, [facility] [address] [id number] [address] [place] [address], [place] [address] Dec, [facility] [address] [id number] [address] [place] [address], [place] [address] Dec, [facility] [address] [id number] [address] [place] [address], [place] [address] November, [facility] [address] [id number] [address] [place] [address], [place] [address] November, [facility] [address] [id number] [address] [place] [address], [place] [address] November, [facility] [address] [id number] [address] [place] [address], [place] [address] November, [facility] [address] [id number] [address] [place] [address], [place] [address] November, [facility] [address] [id number] [address] [place] [address], [place] [address] November, [facility] [address] [id number] [address] [place] [address], [place] [address] Oct, [facility] [address] [id number] [address] [place] [address], [place] [address] Oct, [facility] [address] [id number] [address] [place] [address], [place] [address] Oct, [facility] [address] [id number] [address] [place] [address], [place] [address] Oct, [facility] [address] [id number] [address] [place] [address], [place] [address] Sep, [facility] [address] [id number] [facility] [place] [address] Sep, [facility] [address] [id number] [address] [place] [address], [place] [address] Sep, [facility] [address] [id number] [address] [place] [address], [place] [address] Sep, [facility] [address] [id number] [address] [place] [address], [place] [address] Sep, [facility] [address] [id number] [address] [place] [address], [place] [address] Sep, [facility] [address] [id number] [address] [place] [address], [place] [address] Aug, [facility] [address] [id number] [address] [place] [address], [place] [address] Aug, [facility] [address] [id number] [address] [place] [address], [place] [address] Aug, [facility] [address] [id number] [address] [place] [address], [place] [address] Aug, [facility] [address] [id number] [address] [place] [address], [place] [address] Aug, [facility] [address] [id number] [address] [place] [address], [place] [address] Aug, [facility] [address] [id number] [address] [place] [address], [place] [address] Jul, [facility] [address] [id number] [address] [place] [address], [place] [address] Jul, [facility] [address] [id number] [address] [place] [address], [place] [address] Jul, [facility] [address] [id number] [address] [place] [address], [place] [address] Jul, [facility] [address] [id number] [address] [place] [address], [place] [address] Jul, [facility] [address] [id number] [address] [place] [address], [place] [address] Jul, [facility] [address] [id number] [address] [place] [address], [place] [address] Jul, [facility] [address] [id number] [address] [place] [address], [place] [address] Jul, [facility] [address] [id number] [address] [place] [address], [place] [address] Jul, [facility] [address] [id number] [address] [place] [address], [place] [address] Jul, [facility] [address] [id number] [address] [place] [address], [place] [address] Jul, [facility] [address] [id number] [address] [place] [address], [place] [address] Jul, [facility] [address] [id number] [address] [place] [address], [place] [address] Jul, [facility] [address] [id number] [address] [place] [address], [place] [address] Jul, [facility] [address] [id number] [address] [place] [address], [place] [address] Jul, [facility] [address] [id number] [address] [place] [address], [place] [address] Jun, [facility] [address] [id number] [address] [place] [address], [place] [address] Jun, [facility] [address] [id number] [address] [place] [id number] Jun, [facility] [address] [id number] [address] [place] [id number] Jun, [facility] [address] [id number] [address] [place] [id number] May, [facility] [address] [id number] [address] [place] [id number] May, [facility] [place] [address] [id number] [place] [id number] May, [facility] [address] [id number] [address] [place] [id number] May, [facility] [address] [id number] [address] [place] [id number] May, [facility] [address] [id number] [address] [place] [address] May, [facility] [address] [id number] [address] [place] [id number] May, [facility] [address] [id number] [address] [place] [id number] May, [facility] [address] [id number] [address] [place] [address] May, [facility] [place] [address] [id number] [place] [id number] May, [facility] [address] [id number] [address] [place] [id number] May, [facility] [place] [address] [id number] [place] [id number] May, [facility] [address] [id number] [address] [place] [id number] May, [facility] [place] [address] [id number] [place] [id number] May, [facility] [address] [id number] [address] [place] [address], [place] [address] May, IMMUNIZATIONS No Known Immunizations SOCIAL HISTORY Never Assessed REASON FOR VISIT PLAN OF CARE VITAL SIGNS Height 63 in 2014-03-09 Weight 164.2 lbs 2014-03-09 Temperature 96.9 degrees Fahrenheit 2014-03-09 Heart Rate 64 bpm 2014-03-09 Respiratory Rate 18 2014-03-09 Blood pressure systolic 108 mmHg 2014-03-09 Blood pressure diastolic 60 mmHg 2014-03-09 MEDICATIONS Unknown Medications RESULTS No Results PROCEDURES Procedure Date Ordered Result Body Site COMPLETE CBC W/AUTO DIFF WBC Mar 09, 2014 ASSAY THYROID STIM HORMONE Mar 09, 2014 LIPID PANEL Mar 09, 2014 COMPREHEN METABOLIC PANEL Mar 09, 2014 X-RAY EXAM OF ANKLE Mar 09, 2014 X-RAY EXAM OF HAND Mar 09, 2014 X-RAY EXAM OF NECK SPINE Mar 09, 2014 VENIPUNCT, ROUTINE* Mar 09, 2014 INSTRUCTIONS MEDICATIONS ADMINISTERED No Known Medications MEDICAL [...] SVT pathway ablation by [facility] Dr Ruiz 01/29 18 Surgical History oral cancer 01/2018 Surgical History g tube placement Failed swallow study Surgical History loop placement 03/2018 Surgical History colonoscopy 01/31/16 Surgical History removal of right neck cancer [facility] 8/1 8 Surgical History removal of cancer in neck 04/30 Surgical History port placement 04/30 Surgical History Peg tube placement 07/08/19 Hospitalization History amputation transmetatarsal Hospitalization History hip replacement Hospitalization History CVA 12/2014 Hospitalization History Exacerbation COPD 10/23/15 Hospitalization History Diarrhea, leukocytosis--[facility] 01/08/16 Hospitalization History pseudomemranous colitis, sepsis--[facility] 04/21/2016 Hospitalization History C Diff--[facility] 05/10/2016 Hospitalization History sepsis, pneumonia, diarrhea--[facility] Hospitalization History recurrent cdiff, pneumonia-[facility] Hospitalization History sepsis,pneumonia- [facility] 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
--- OUTSIDE RECORDS SUMMARY | 2019-11-07 10:13 | XMS REPORT ---
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 014389389 Problem COPD (chronic obstructive pulmonary disease) J44.9 Active 45238336 Problem Hypertension I10 Active 3863823 3 Problem Primary insomnia F51.01 Active 397 2004 Problem Hx of Clostridium difficile infection Z86.19 Active 889822582 Problem Chronic obstructive pulmon disease w acute lower resp infc t J44.0 Active 914343265 Problem History of arthroplasty of right knee Z96.651 Active 715615748 Problem Leg pain, left M79.605 Active 78788 7008 Problem Status post partial amputation of left foot Z89.43 2 Active 556155628 Problem Edema R60.9 Active 065754487 Problem Tobacco abuse, 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 Ac tive 246952551 Problem Anxiety F41.9 Active 78994340 Problem Chronic pain syndrome G89.4 Active 647233011 Problem Anemia, unspecified type D64.9 Activ e 446767293 Problem Depression, unspecified depression type F32.9 Active 61972743 Problem Other chronic pain G89.29 Active 8 5647106 Problem Iron deficiency anemia, unspecified iron deficiency an emia type D50.9 Active 24675917 Problem Insomnia, unspecified G47.00 Active 346516932 Problem Seasonal allergic rhinitis due to pollen J30.1 Active 87289502 Problem History of oral cancer Z85.819 Active 464467444 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 36 2664387 Problem Atrial fibrillation I48.91 Active 31285893 Problem Chronic obstructive pulmonary disease with (acute) exa cerbation J44.1 Active 869237889 Problem Rheumatoid arthritis M06.9 Active 37893149 Problem Dysthymia F34.1 Active 24462767 Problem Neuropathy G62.9 Active 794365422 Problem Rheumatoid arthritis with po sitive rheumatoid factor, involving unspecified site M05.9 Active 79014036 Problem Hemiplegia and hemiparesis f ollowing cerebral infarction affecting right dominant side I69.351 Active 548819434 Problem Cancer of neck C76.0 Active 21000 9000 ALLERGIES No Information ENCOUNTERS Encounter Location Date Diagnosis [facility] [address] [facility] [place] [id number] [address] [place] [address] November, [facility] [address] [facility] [place] [id number] [address] [place] [phone] 08 Oct, 2019 Thrush B37.0 [facility] [address] [facility] [place] [id number] [address] [place] [phone] 08 Oct, 2019 [facility] [address] [facility] [place] [id number] [address] [place] [phone] Sep, [facility] [address] [facility] [place] [id number] [address] [place] [phone] Sep, Chronic pain syndrome G89.4 and Rheumatoid arthritis with positive rheumatoid factor, involving unspecified site M05.9 [facility] [address] [facility] [place] [id number] [address] [place] [id number] 04 Sep, 2019 [facility] [address] [facility] [place] [id number] [address] [place] [address] Aug, Chronic pain syndrome G89.[id number] [place] [phone] 19 Aug, 2019 Chronic obstructive pulmonar y disease with (acute) exacerbation J44.1 [facility] [address] [facility] [place] [id number] [address] [place] [id number] 12 Aug, 2019 Single subsegmental pulmonar y embolism without acute cor pulmonale I26.93 ; Rheumatoid arthritis with positive rheumatoid factor, involving unspecified site M05.9 ; Chronic pain syndrome G89.4 ; Leg pain, left M79.605 and 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 [facility] [address] [id number] [address] [place] [phone] Aug, [facility] [address] [id number] [address] [place] [address] Aug, 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 [facility] [address] [id number] [address] [place] [id number] 07 Aug, 2019 Chronic pain syndrome G89.4 [facility] [address] [id number] [address] [place] [address] Jul, Primary insomnia F51.01 [facility] [address] [id number] [address] [place] [address] Jul, Chronic pain syndrome G89.4 [facility] [address] [id number] [address] [place] [phone] Jul, [facility] [address] [id number] [address] [place] [address] Jul, [facility] [address] [id number] [address] [place] [address] Jul, Rheumatoid arthritis with po sitive rheumatoid factor, involving unspecified site M05.9 and Chronic pain syndrome G89.4 [facility] [address] [id number] [address] [place] [address] Jul, [facility] [address] [id number] [address] [place] [phone] Jun, Rheumatoid arthritis with po sitive rheumatoid factor, involving unspecified site M05.9 [facility] [address] [id number] [address] [place] [address] Jun, Chronic pain syndrome G89.4 ; Rheumatoid arthritis with positive rheumatoid factor, involving unspecified site M05.9 and Anxiety F41.9 [facility] [address] [id number] [address] [place] [address] Jun, [facility] [address] [id number] [address] [place] [address] Jun, Hemorrhoids, unspecified hem orrhoid type K64.9 [facility] [address] [id number] [address] [place] [address] Jun, Hemorrhoids, unspecified hem orrhoid type K64.9 ; Cancer of neck C76.0 and Drug-induced constipation K59.03 [facility] [address] [id number] [address] [place] [address] Jun, [facility] [address] [id number] [address] [place] [address] Jun, [facility] [address] [id number] [address] [place] [address] Jun, Rheumatoid arthritis with po sitive rheumatoid factor, involving unspecified site M05.9 [facility] [address] [id number] [address] [place] [address] May, [facility] [address] [id number] [address] [place] [address] May, Rheumatoid arthritis with po sitive rheumatoid factor, involving unspecified site M05.9 [facility] [address] [id number] [address] [place] [address] Apr, Primary insomnia F51.01 [facility] [address] [id number] [address] [place] [address] Apr, Rheumatoid arthritis with po sitive rheumatoid factor, involving unspecified site M05.9 [facility] [address] [id number] [address] [place] [address] Mar, [facility] [address] [id number] [address] [place] [address] Mar, [facility] [address] [id number] [address] [place] [address] Mar, Rheumatoid arthritis with po sitive rheumatoid factor, involving unspecified site M05.9 ; Atrial fibrillation I48.91 ; Chronic pain syndrome G89.4 ; Iron deficiency anemia, unspecified iron deficiency anemia type D50.9 and Hemiplegia and hemiparesis following cerebral infarction affecting right dominant side I69.351 [facility] [address] [id number] [address] [place] [address] Mar, Chronic pain syndrome G89.4 and Primary insomnia F51.01 [place] [address] [id number] [address] [place] [address] Mar, Rheumatoid arthritis with po sitive rheumatoid factor, involving unspecified site M05.9 [place] [address] [facility] [facility] [place] [id number] [address] [place] [address] Feb, Rheumatoid arthritis with po sitive rheumatoid factor, involving unspecified site M05.9 ; Chronic pain syndrome G89.4 ; Atrial fibrillation I48.91 ; Iron deficiency anemia, unspecified iron deficiency anemia type D50.9 ; Hemiplegia and hemiparesis following cerebral infarction affecting right dominant side I69.351 and Primary insomnia F51.01 [facility] [address] [id number] [address] [place] [address] Feb, Chronic pain syndrome G89.4 [facility] [address] [id number] [address] [place] [address] Jan, Chronic pain syndrome G89.4 [facility] [address] [id number] [address] [place] [address] Jan, [facility] [address] [facility] [place] [id number] [address] [place] [address] Jan, [facility] [address] [id number] [address] [place] [address] Dec, [facility] [address] [facility] [place] [id number] [address] [place] [address] Dec, Chronic pain syndrome G89.4 [facility] [address] [id number] [address] [place] [address] Dec, [facility] [address] [id number] [address] [place] [address] November, Chronic pain syndrome G89.4 [facility] [address] [id number] [address] [place] [address] Oct, Chronic pain syndrome G89.4 [facility] [address] [id number] [address] [place] [address] Oct, [facility] [address] [id number] [address] [place] [address] Sep, Chronic pain syndrome G89.4 [facility] [address] [id number] [address] [place] [address] Sep, Leg pain, left M79.605 ; Rig ht leg pain M79.604 and Reactive cervical nodes R59.0 [facility] [address] [id number] [address] [place] [address] Sep, [facility] [address] [id number] [address] [place] [address] Sep, Neuropathy G62.9 [facility] [address] [id number] [place] [id number] Sep, [facility] [address] [id number] [address] [place] [address] Sep, Lymphadenopathy of left cerv ical region R59.0 [facility] [address] [id number] [address] [place] [address] Sep, Lymphadenopathy of left cerv ical region R59.0 and Neuropathy G62.9 [facility] [address] [id number] [address] [place] [address] Aug, Chronic pain syndrome G89.4 [facility] [address] [id number] Aug, [place] [address] [address] Aug, Peripheral vascular disease, unspecified I73.9 ; Other chronic pain G89.29 ; Chronic obstructive pulmon disease w acute lower resp infct J44.0 and Primary insomnia F51.01 [place] [address] [id number] Aug, Chronic pain syndrome G89.4 [place] [address] [address] Jul, Chronic pain syndrome G89.4 [place] [address] [address] Jun, Chronic pain syndrome G89.4 [place] [address] [address] May, Chronic pain syndrome G89.4 [facility] [address] [phone] Apr, Cough R05 and Viral illness B34.9 [place] [address] [address] Apr, Encounter for immunization Z 23 [place] [address] [address] Apr, Chronic pain syndrome G89.4 [facility] [address] [address] Apr, Left acute otitis media H66. 92 [place] [address] [address] Mar, Rheumatoid arthritis M06.9 ; Other chronic pain G89.29 ; History of oral cancer Z85.819 and History of tachycardia Z87.898 [place] [address] [address] Mar, Chronic pain syndrome G89.4 [facility] [address] [id number] [address] [place] [address] Feb, Chronic pain syndrome G89.4 [facility] [address] [id number] [address] [place] [address] Feb, Chronic pain syndrome G89.4 [facility] [address] [id number] [address] [place] [address] Jan, Chronic pain syndrome G89.4 [facility] [address] [id number] [address] [place] [address] Jan, [facility] [address] [id number] [address] [place] [address] Dec, Chronic pain syndrome G89.4 [facility] [address] [id number] [address] [place] [address] November, Chronic pain syndrome G89.4 [facility] [address] [id number] [address] [place] [address] November, [facility] [address] [id number] [address] [place] [address] Oct, Chronic pain syndrome G89.4 [facility] [address] [id number] [address] [place] [address] Oct, [facility] [address] [id number] [address] [place] [address] Oct, Chronic pain syndrome G89.4 [facility] [address] [id number] [address] [place] [address] Oct, [facility] [address] [id number] [address] [place] [address] Oct, [facility] [address] [id number] [address] [place] [address] Sep, Left upper quadrant pain R10 .12 ; Chronic pain syndrome G89.4 ; Left lower quadrant pain R10.32 ; Other chronic pain G89.29 ; Sacrococcygeal disorders, not elsewhere classified M53.3 and Seasonal allergic rhinitis due to pollen J30.1 [facility] [address] [id number] [address] [place] [phone] Sep, Chronic pain syndrome G89.4 [facility] [address] [facility] [place] [id number] [address] [place] [phone] Sep, [facility] [address] [facility] [place] [id number] [address] [place] [address] Aug, Chronic pain syndrome G89.4 [facility] [address] [id number] [address] [place] [address] Aug, [facility] [address] [facility] [place] [id number] [address] [place] [address] Aug, Insomnia, unspecified G47.00 [facility] [address] [facility] [place] [id number] [address] [place] [address] Jul, [facility] [address] [facility] [place] [id number] [address] [place] [phone] Jul, [facility] [address] [facility] [place] [id number] [address] [place] [address] Jul, Chronic pain syndrome G89.4 [facility] [address] [facility] [place] [id number] [address] [place] [address] Jun, Chronic pain syndrome G89.4 [facility] [address] [facility] [place] [id number] [address] [place] [address] 04 Jun, 2017 Chronic pain syndrome G89.4 [facility] [address] [facility] [place] [id number] [address] [place] [address] May, [facility] [address] [facility] [place] [id number] [address] [place] [phone] 08 May, 2017 Shortness of breath R06.02 ; Peripheral vascular disease, unspecified I73.9 ; Pain in right knee M25.561 ; Other chronic pain G89.29 ; Chest wall pain R07.89 ; Chronic pain syndrome G89.4 ; Primary insomnia F51.01 and Ear pain, left H92.02 [facility] [address] [id number] [address] [place] [address] May, Anxiety F41.9 [facility] [address] [facility] [place] [id number] [address] [place] [address] Apr, Pneumonia due to infectious organism, unspecified laterality, unspecified part of lung J18.9 ; Hypoxia R09.02 ; Bradycardia R00.1 ; History of Clostridium difficile Z87.19 and Primary insomnia F51.01 [place] [address] [id number] [address] [place] [address] Apr, Anxiety F41.9 [place] [id number] [id number] [address] [place] [address] Apr, [place] [address] [id number] [address] [place] [address] Mar, Anxiety F41.9 [place] [id number] [id number] [address] [place] [address] Feb, [place] [address] [facility] [place] [id number] [address] [place] [address] Feb, [place] [address] [facility] [place] [id number] [address] [place] [address] Feb, Abnormal finding on urinalys is R82.90 [place] [address] [id number] [address] [place] [address] Feb, [facility] [address] [id number] [address] [place] [address] Feb, Shortness of breath R06.02 ; Tachycardia R00.0 ; Cough R05 ; Ill feeling R68.89 and Abnormal finding on urinalysis R82.90 [place] [address] [id number] [address] [place] [address] Feb, Anxiety F41.9 [facility] [address] [facility] [place] [id number] [address] [place] [address] Feb, Sore throat J02.9 and Acute diffuse otitis externa of left ear H60.312 [facility] [address] [facility] [place] [id number] [address] [place] [address] Jan, [facility] [address] [facility] [place] [id number] [address] [place] [phone] Jan, [facility] [address] [id number] [facility] [place] [id number] Jan, [facility] [address] [facility] [place] [id number] [address] [place] [address] Jan, Depression, unspecified depr ession type F32.9 ; Chronic bronchitis, unspecified chronic bronchitis type J42 ; Chronic pain syndrome G89.4 and Anxiety F41.9 [facility] [address] [facility] [place] [id number] [address] [place] [address] Jan, [facility] [address] [facility] [place] [id number] [address] [place] [address] Jan, [facility] [address] [facility] [place] [id number] [address] [place] [address] Jan, [facility] [address] [id number] [facility] [id number] Jan, Chronic pain syndrome G89.4 [employer] [facility] [address] [place] [id number] Dec History of right knee surgery Z98.890 [facility] [address] [facility] [place] [id number] [address] [place] [address] Dec, [facility] [address] [facility] [place] [id number] [address] [place] [address] Dec, Chronic pain syndrome G89.4 [facility] [address] [facility] [place] [id number] [address] [place] [address] November, Anxiety F41.9 [facility] [address] [facility] [place] [id number] [address] [place] [address] 16 Nov, 2016 Acute cystitis without hemat uria N30.00 [facility] [address] [facility] [place] [id number] [address] [place] [address] November, Fever, unspecified fever cau se R50.9 and Acute cystitis without hematuria N30.00 [facility] [address] [place] [id number] [address] [place] [address] November, Chronic pain syndrome G89.4 [place] [address] [address] Oct, Anxiety F41.9 [place] [address] [address] Oct, Chronic pain syndrome G89.4 [place] [address] [address] Oct, Chronic pain syndrome G89.4 [place] [address] [place] [id number] [address] [place] [address] Oct, [place] [address] [address] Oct, Chronic pain syndrome G89.4 ; Pain in right knee M25.561 ; History of Clostridium difficile Z87.19 ; Iron deficiency anemia, unspecified iron deficiency anemia type D50.9 ; Peripheral vascular disease, unspecified I73.9 and Atrial fibrillation I48.91 [facility] [address] [place] [id number] [address] [place] [address] Oct, [place] [address] [address] Oct, Chronic pain syndrome G89.4 [place] [address] [place] [id number] [address] [place] [address] Sep, [place] [address] [address] Sep, Depression, unspecified depr ession type F32.9 ; Chronic bronchitis, unspecified chronic bronchitis type J42 ; Chronic pain syndrome G89.4 and Anxiety F41.9 [employer] [address] [place] [id number] Sep History of Clostridium difficile infection Z86.19 and History of stroke Z86.73 [facility] [address] [id number] [id number] Sep, Anxiety F41.9 [facility] [address] [facility] [place] [place] [id number] [address] [place] [address] Sep, Chronic pain syndrome G89.4 [facility] [address] [facility] [place] [id number] [address] [place] [address] Sep, [facility] [address] [id number] [id number] Sep, [facility] [address] [facility] [place] [place] [id number] [address] [place] [id number] 23 Aug, 2016 Anxiety F41.9 [facility] [address] [facility] [place] [id number] [address] [place] [id number] Aug, Anxiety F41.9 [facility] [address] [facility] [place] [id number] [address] [place] [id number] 16 Aug, 2016 [facility] [address] [facility] [place] [id number] [address] [place] [id number] 14 Aug, 2016 Acute knee pain, unspecified laterality M25.569 [facility] [address] [facility] [place] [id number] [address] [place] [id number] 13 Aug, 2016 [facility] [address] [facility] [place] [id number] [address] [place] [address] [id number] 09 Aug, 2016 Chronic pain syndrome G89.4 [facility] [address] [facility] [place] [place] [id number] [address] [place] [phone] 08 Aug, 2016 [facility] [address] [facility] [place] [id number] [address] [place] [phone] Aug, [facility] [address] [id number] [address] [place] [phone] Jul, [facility] [address] [id number] [address] [place] [address] Jul, Anxiety F41.9 [facility] [address] [id number] [address] [place] [address] Jul, Clostridium difficile diarrh ea A04.7 [facility] [address] [place] [id number] Jul Clostridium difficile diarrhea A04.7 ; Chronic pain syndrome G89.4 ; Chronic obstructive pulmon disease w acute lower resp infct J44.0 and Pain in right knee M25.561 [facility] [id number] [place] [id number] Jul, [facility] [address] [facility] [place] [id number] [address] [place] [address] Jul, Anxiety F41.9 and Chronic pa in syndrome G89.4 [facility] [address] [id number] [address] [place] [address] Jun, Anxiety F41.9 [facility] [address] [id number] [address] [place] [address] Jun, Rheumatoid arthritis 714.0 [facility] [address] [id number] [address] [place] [address] Jun, Chronic pain syndrome G89.4 [facility] [address] [id number] [address] [place] [phone] Jun, [facility] [address] [facility] [place] [id number] [address] [place] [address] Jun, [facility] [address] [facility] [place] [id number] [address] [place] [address] Jun, History of pneumonia Z87.01 and History of Clostridium difficile Z87.19 [facility] [address] [id number] [address] [place] [phone] Jun, [facility] [address] [id number] [address] [place] [address] May, [facility] [address] [facility] [place] [id number] [address] [place] [phone] May, Anxiety F41.9 [facility] [address] [facility] [place] [id number] [address] [place] [address] May, Chronic pain syndrome G89.4 [facility] [address] [facility] [place] [id number] [address] [place] [phone] May, Chronic bronchitis, unspecif ied chronic bronchitis type J42 [facility] [address] [facility] [place] [id number] [address] [place] [address] May, [facility] [address] [facility] [place] [id number] [address] [place] [address] May, C. difficile diarrhea A04.7 ; Peripheral edema R60.9 ; COPD (chronic obstructive pulmonary disease) J44.9 ; Rheumatoid arthritis, involving unspecified site, unspecified rheumatoid factor presence M06.9 ; Pain in right knee M25.561 ; Pain in left knee M25.562 and Other chronic pain G89.29 [facility] [address] [facility] [place] [id number] [address] [place] [address] May, [facility] [address] [facility] [place] [id number] [address] [place] [address] May, [facility] [address] [facility] [place] [id number] [address] [place] [address] May, Anxiety F41.9 [facility] [address] [facility] [place] [id number] [address] [place] [phone] Apr, [facility] [address] [facility] [place] [id number] [address] [place] [address] Apr, Chronic pain syndrome G89.4 [facility] [address] [facility] [place] [id number] [address] [place] [address] Apr, Leg pain, left M79.605 [facility] [address] [id number] [address] [place] [address] Apr, [facility] [address] [id number] [address] [place] [address] Apr, [facility] [address] [id number] [address] [place] [address] Apr, [facility] [address] [id number] [address] [place] [address] Mar, Chronic pain syndrome G89.4 [place] [facility] [address] [id number] [address] [place] [address] Mar, Acute frontal sinusitis, rec urrence not specified J01.10 [facility] [facility] [address] [id number] [address] [place] [id number] 20 Mar, 2016 Iron deficiency anemia, unsp ecified iron deficiency anemia type D50.9 ; Rheumatoid arthritis with positive rheumatoid factor, involving unspecified site M05.9 and Depression, unspecified depression type F32.9 [facility] [address] [id number] [address] [place] [address] Mar, Iron deficiency anemia, unsp ecified iron deficiency anemia type D50.9 ; Depression, unspecified depression type F32.9 and Rheumatoid arthritis with positive rheumatoid factor, involving unspecified site M05.9 [place] [address] [id number] [address] [place] [address] Mar, [facility] [address] [id number] [address] [place] [address] Mar, [facility] [address] [id number] [address] [place] [address] Feb, Chronic pain syndrome G89.4 [facility] [address] [id number] [address] [place] [address] Feb, Status post partial amputati on of left foot Z89.432 ; Status post CVA Z86.73 ; Hemiplegia G81.90 and Anemia, unspecified type D64.9 [facility] [address] [facility] [place] [id number] [address] [place] [phone] Feb, [facility] [address] [id number] [address] [place] [address] Feb, Anemia, unspecified type D64 .9 [facility] [address] [facility] [place] [id number] [address] [place] [address] Feb, [facility] [address] [facility] [place] [id number] [address] [place] [address] Feb, Iron deficiency anemia, unsp ecified iron deficiency anemia type D50.9 [facility] [address] [facility] [place] [id number] [address] [place] [phone] Feb, [facility] [address] [facility] [place] [id number] [address] [place] [phone] Feb, Chronic bronchitis, unspecif ied chronic bronchitis type J42 [place] [facility] [id number] [id number] [address] [place] [address] Feb, Iron deficiency anemia, unsp ecified iron deficiency anemia type D50.9 [place] [id number] [facility] [place] [id number] [address] [place] [address] Feb, Chronic pain syndrome G89.4 [facility] [address] [facility] [place] [id number] [address] [place] [address] Feb, Anemia, unspecified type D64 .9 and Hypoxia R09.02 [facility] [address] [facility] [place] [id number] [address] [place] [address] Feb, Anemia, unspecified type D64 .9 [facility] [address] [facility] [place] [id number] [address] [place] [phone] Jan, [facility] [address] [facility] [place] [id number] [address] [place] [address] Jan, Anemia, unspecified type D64 .9 [facility] [address] [id number] [address] [place] [address] Jan, [facility] [address] [facility] [place] [id number] [address] [place] [address] Jan, Anemia, unspecified type D64 .9 [facility] [address] [facility] [place] [id number] [address] [place] [address] Jan, Anemia, unspecified type D64 .9 [facility] [address] [facility] [place] [id number] [address] [place] [address] Jan, [facility] [address] [facility] [place] [id number] [address] [place] [address] Jan, Anemia, unspecified type D64 .9 [facility] [address] [facility] [place] [id number] [address] [place] [phone] Jan, [facility] [address] [facility] [place] [id number] [address] [place] [address] Jan, [facility] [address] [facility] [place] [id number] [address] [place] [address] Jan, Chronic pain syndrome G89.4 [facility] [address] [facility] [place] [id number] [address] [place] [address] Jan, Anemia, unspecified type D64 .9 [facility] [address] [facility] [place] [id number] [address] [place] [address] Jan, 2016 Dysthymia F34.1 ; Cervicalgi a M54.2 ; Fatigue, unspecified type R53.83 and Depression, unspecified depression type F32.9 [facility] [address] [facility] [place] [id number] [address] [place] [address] Dec, [facility] [address] [facility] [place] [id number] [address] [place] [phone] 14 Dec, 2015 Anxiety F41.9 [facility] [address] [facility] [place] [id number] [address] [place] [address] Dec, Chronic pain syndrome G89.4 [facility] [address] [facility] [place] [id number] [address] [place] [address] November, [facility] [address] [facility] [place] [id number] [address] [place] [address] November, Edema R60.9 and Dizziness R4 2 [place] [address] [place] [id number] [address] [place] [address] November, [facility] [address] [place] [id number] [place] [address] November, [place] [address] [phone] November, COPD (chronic obstructive pu lmonary disease) J44.9 ; Increased tracheal secretions J39.8 and Edema R60.9 [facility] [address] [place] [id number] [address] [place] [address] Oct, [facility] [address] [place] [id number] [address] [place] [address] Oct, Shortness of breath R06.02 a nd Edema R60.9 [place] [address] [address] Oct, Chronic bronchitis, unspecif ied chronic bronchitis type J42 ; Peripheral vascular disease, unspecified I73.9 ; Rheumatoid arthritis M06.9 and Atrial fibrillation I48.91 [facility] [address] [place] [id number] [address] [place] [address] Oct, [facility] [id number] [place] [address] Oct, [facility] [address] [phone] Oct, [facility] [address] [place] [id number] [address] [place] [address] Oct, [facility] [address] [place] [id number] [place] [address] Oct, COPD exacerbation J44.1 [facility] [address] [facility] [place] [id number] [address] [place] [address] Sep, [facility] [address] [facility] [place] [id number] [address] [place] [phone] Sep, [facility] [address] [facility] [place] [id number] [address] [place] [address] Sep, [facility] [address] [facility] [place] [id number] [address] [place] [address] Aug, [facility] [address] [facility] [place] [id number] [address] [place] [phone] Aug, 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 and P VD (peripheral vascular disease) I73.9 [facility] [address] [facility] [place] [id number] [address] [place] [address] Aug, Bronchitis J40 ; COPD (chron ic obstructive pulmonary disease) J44.9 and Dysthymia F34.1 [facility] [address] [facility] [place] [id number] [address] [place] [address] Aug, [facility] [address] [facility] [place] [id number] [address] [place] [phone] Jul, [facility] [address] [facility] [place] [id number] [address] [place] [phone] Jul, [facility] [address] [facility] [place] [id number] [address] [place] [address] Jul, [facility] [address] [facility] [place] [id number] [address] [place] [address] Jun, [facility] [address] [facility] [place] [id number] [address] [place] [address] Jun, [facility] [address] [facility] [place] [id number] [address] [place] [address] Jun, Peripheral vascular disease I73.9 [facility] [address] [id number] [address] [place] [address] Jun, [facility] [address] [id number] [address] [place] [address] Jun, [facility] [address] [id number] [address] [place] [address] Jun, Leg pain, left M79.605 ; Dys phagia, unspecified dysphagia R13.10 ; Insomnia, unspecified type G47.00 ; PVD (peripheral vascular disease) I73.9 and 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 [facility] [address] [id number] [address] [place] [address] May, [facility] [address] [id number] [address] [place] [address] May, [facility] [address] [id number] [address] [place] [address] May, [facility] [address] [id number] [address] [place] [address] May, [facility] [address] [id number] [address] [place] [address] May, [facility] [address] [id number] [address] [place] [address] Apr, [facility] [address] [id number] [address] [place] [address] Apr, [facility] [address] [id number] [address] [place] [address] Mar, [facility] [address] [id number] [address] [place] [address] Mar, [facility] [address] [id number] [address] [place] [address] Feb, [facility] [address] [id number] [address] [place] [address] Feb, Nicotine abuse 305.1 ; Arthr algia 719.40 and 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 [facility] [address] [id number] [address] [place] [address] Feb, [facility] [address] [id number] [address] [place] [address] Jan, [facility] [address] [id number] [address] [place] [phone] Jan, [facility] [address] [id number] [address] [place] [address] Jan, [facility] [address] [id number] [address] [place] [address] Jan, [facility] [address] [id number] [address] [place] [address] Jan, 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 ; Rhe umatoid arthritis 714.0 ; Hypertension 401.9 ; GERD (gastroesophageal reflux disease) 530.81 ; Nicotine addiction 305.1 and Leukocytosis 288.60 [facility] [address] [id number] [address] [place] [address] Jan, [facility] [address] [id number] [address] [place] [phone] Jan, [facility] [address] [id number] [address] [place] [address] Jan, [facility] [address] [id number] [address] [place] [address] Jan, [facility] [address] [id number] [address] [place] [address] Jan, [facility] [address] [id number] [address] [place] [address] Dec, [facility] [address] [id number] [address] [place] [address] Dec, [facility] [address] [id number] [address] [place] [address] Dec, [facility] [address] [place] [id number] [place] [address] Dec, [facility] [address] [address] November, [facility] [address] [address] November, [facility] [address] [address] November, Shortness of breath 786.05 [facility] [address] [address] November, Rheumatoid arthritis 714.0 [facility] [address] [address] November, 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 [facility] [address] [address] November, Neuropathy 355.9 ; Insomnia 780.52 ; Dysthymia 300.4 ; Shortness of breath 786.05 ; Rheumatoid arthritis 714.0 and Nausea 787.02 [facility] [address] [place] [id number] [address] [place] [address] November, [facility] [address] [place] [id number] [address] [place] [address] November, [facility] [address] [address] Oct, [facility] [address] [address] Oct, [facility] [address] [address] Oct, [facility] [address] [place] [id number] [address] [place] [address] Oct, [facility] [place] [facility] [address] [id number] [address] [place] [address], [place] [address] Sep, [facility] [address] [id number] [address] [place] [address], [place] [address] Sep, [facility] [place] [facility] [address] [id number] [address] [place] [address], [place] [address] Sep, [facility] [address] [id number] [address] [place] [address], [place] [address] Sep, [facility] [address] [id number] [address] [place] [address], [place] [address] Sep, [facility] [address] [id number] [address] [place] [address], [place] [address] Sep, [facility] [address] [id number] [address] [place] [address], [place] [address] Sep, [facility] [address] [id number] [address] [place] [address], [place] [address] Sep, [facility] [address] [id number] [address] [place] [address], [place] [address] Aug, [facility] [address] [id number] [address] [place] [address], [place] [address] Aug, [facility] [address] [id number] [address] [place] [address], [place] [address] Aug, [facility] [place] [facility] [address] [id number] [address] [place] [address], [place] [address] Aug, [facility] [address] [id number] [address] [place] [address], [place] [address] Aug, [facility] [place] [facility] [address] [id number] [address] [place] [address], [place] [address] Aug, [facility] [address] [id number] [address] [place] [address], [place] [address] Jul, [facility] [address] [id number] [address] [place] [address] [address] Jul, [facility] [address] [id number] [address] [place] [address], [place] [address] Jul, [facility] [address] [id number] [address] [place] [address], [place] [address] Jul, [facility] [address] [id number] [address] [place] [address], [place] [address] Jul, [facility] [address] [id number] [address] [place] [address], [place] [address] Jul, [facility] [address] [id number] [address] [place] [address], [place] [address] Jul, [facility] [address] [id number] [address] [place] [address], [place] [address] Jul, [facility] [address] [id number] [address] [place] [address], [place] [address] Jul, [facility] [address] [id number] [address] [place] [address], [place] [address] Jul, [facility] [address] [id number] [address] [place] [address], [place] [address] Jun, [facility] [address] [id number] [address] [place] [address], [place] [address] Jun, [facility] [address] [id number] [address] [place] [address], [place] [address] Jun, [facility] [address] [id number] [address] [place] [address], [place] [address] Jun, [facility] [address] [id number] [address] [place] [address], [place] [address] Jun, [facility] [address] [id number] [address] [place] [address], [place] [address] Jun, [facility] [address] [id number] [address] [place] [address], [place] [address] Jun, [facility] [address] [id number] [address] [place] [address], [place] [address] Jun, [facility] [address] [id number] [address] [place] [address], [place] [address] Jun, [facility] [address] [id number] [address] [place] [address], [place] [address] Jun, [facility] [address] [id number] [address] [place] [address], [place] [address] Jun, [facility] [address] [id number] [address] [place] [address], [place] [address] Jun, [facility] [address] [id number] [address] [place] [address], [place] [address] Jun, [facility] [address] [id number] [address] [place] [address], [place] [address] Jun, [facility] [address] [id number] [address] [place] [address], [place] [address] Jun, [facility] [address] [id number] [address] [place] [address], [place] [address] Jun, [facility] [address] [id number] [address] [place] [address], [place] [address] May, [facility] [address] [id number] [address] [place] [address], [place] [address] May, [facility] [address] [id number] [address] [place] [address], [place] [address] May, [facility] [address] [id number] [address] [place] [address], [place] [address] May, [facility] [address] [id number] [address] [place] [address], [place] [address] May, [facility] [address] [id number] [address] [place] [address], [place] [address] May, [facility] [address] [id number] [address] [place] [address], [place] [address] May, [facility] [address] [id number] [address] [place] [address], [place] [address] May, [facility] [address] [id number] [address] [place] [address], [place] [address] May, [facility] [address] [id number] [address] [place] [address], [place] [address] Apr, [facility] [address] [id number] [address] [place] [address], [place] [address] Apr, [facility] [address] [id number] [address] [place] [address], [place] [address] Apr, [facility] [address] [id number] [address] [place] [address], [place] [address] Apr, [facility] [address] [id number] [address] [place] [address], [place] [address] Apr, [facility] [address] [id number] [address] [place] [address], [place] [address] Apr, [facility] [address] [id number] [address] [place] [address], [place] [address] Apr, [facility] [address] [id number] [address] [place] [address], [place] [address] Apr, [facility] [address] [id number] [address] [place] [address], [place] [address] Apr, [facility] [address] [id number] [address] [place] [address], [place] [address] Apr, [facility] [address] [id number] [address] [place] [address], [place] [address] Apr, [facility] [address] [id number] [address] [place] [address], [place] [address] Apr, [facility] [address] [id number] [address] [place] [address], [place] [address] Mar, [facility] [address] [id number] [address] [place] [address], [place] [address] Mar, 2013 [facility] [address] [id number] [facility] [place] [address] Mar, 2013 [facility] [address] [id number] [address] [place] [address], [place] [address] Mar, 2013 [facility] [address] [id number] [address] [place] [address], [place] [address] Mar, 2013 [facility] [address] [id number] [address] [place] [address], [place] [address] Mar, 2013 [facility] [address] [id number] [address] [place] [address], [place] [address] Mar, 2013 [facility] [address] [id number] [address] [place] [address], [place] [address] Mar, [facility] [address] [id number] [address] [place] [address], [place] [address] Mar, [facility] [address] [id number] [address] [place] [address], [place] [address] Mar, [facility] [address] [id number] [address] [place] [address], [place] [address] Feb, [facility] [address] [id number] [address] [place] [address], [place] [address] Feb, [facility] [address] [id number] [address] [place] [address], [place] [address] Feb, [facility] [address] [id number] [address] [place] [address], [place] [address] Feb, [facility] [address] [id number] [address] [place] [address], [place] [address] Feb, [facility] [address] [id number] [address] [place] [address], [place] [address] Feb, [facility] [address] [id number] [address] [place] [address], [place] [address] Feb, [facility] [address] [id number] [facility] [place] [address] Feb, [facility] [address] [id number] [facility] [place] [address] Feb, [facility] [address] [id number] [facility] [place] [address] Feb, [facility] [address] [id number] [address] [place] [address], [place] [address] Feb, [facility] [address] [id number] [address] [place] [address], [place] [address] Feb, [facility] [address] [id number] [address] [place] [address], [place] [address] Feb, [facility] [address] [id number] [address] [place] [address], [place] [address] Feb, [facility] [address] [id number] [address] [place] [address], [place] [address] Feb, [facility] [address] [id number] [address] [place] [address], [place] [address] Feb, [facility] [address] [id number] [address] [place] [address], [place] [address] Jan, [facility] [address] [id number] [address] [place] [address], [place] [address] Jan, [facility] [address] [id number] [address] [place] [address], [place] [address] Jan, [facility] [address] [id number] [address] [place] [address], [place] [address] Jan, [facility] [address] [id number] [address] [place] [address], [place] [address] Jan, [facility] [address] [id number] [address] [place] [address], [place] [address] Jan, [facility] [address] [id number] [address] [place] [address], [place] [address] Dec, [facility] [address] [id number] [address] [place] [address], [place] [address] Dec, [facility] [address] [id number] [address] [place] [address], [place] [address] Dec, [facility] [address] [id number] [address] [place] [address], [place] [address] Dec, [facility] [address] [id number] [address] [place] [address], [place] [address] Dec, [facility] [address] [id number] [address] [place] [address], [place] [address] Dec, [facility] [address] [id number] [address] [place] [address], [place] [address] Dec, [facility] [address] [id number] [address] [place] [address], [place] [address] Dec, [facility] [address] [id number] [address] [place] [address], [place] [address] November, [facility] [address] [id number] [address] [place] [address], [place] [address] November, [facility] [address] [id number] [address] [place] [address], [place] [address] November, [facility] [address] [id number] [address] [place] [address], [place] [address] November, [facility] [address] [id number] [address] [place] [address], [place] [address] November, [facility] [address] [id number] [address] [place] [address], [place] [address] November, [facility] [address] [id number] [address] [place] [address], [place] [address] Oct, [facility] [address] [id number] [address] [place] [address], [place] [address] Oct, [facility] [address] [id number] [address] [place] [address], [place] [address] Oct, [facility] [address] [id number] [address] [place] [address], [place] [address] Oct, [facility] [address] [id number] [address] [place] [address], [place] [address] Sep, [facility] [address] [id number] [address] [place] [address], [place] [address] Sep, [facility] [address] [id number] [address] [place] [address], [place] [address] Sep, [facility] [address] [id number] [address] [place] [address], [place] [address] Sep, [facility] [address] [id number] [address] [place] [address], [place] [address] Sep, [facility] [address] [id number] [address] [place] [address], [place] [address] Sep, [facility] [address] [id number] [address] [place] [address], [place] [address] Aug, [facility] [address] [id number] [address] [place] [address], [place] [address] Aug, [facility] [address] [id number] [address] [place] [address], [place] [address] Aug, [facility] [address] [id number] [address] [place] [address], [place] [address] Aug, [facility] [address] [id number] [address] [place] [address], [place] [address] Aug, [facility] [address] [id number] [address] [place] [address], [place] [address] Aug, [facility] [address] [id number] [address] [place] [address], [place] [address] Jul, [facility] [address] [id number] [address] [place] [address], [place] [address] Jul, [facility] [address] [id number] [address] [place] [address], [place] [address] Jul, [facility] [address] [id number] [address] [place] [address], [place] [address] Jul, [facility] [address] [id number] [address] [place] [address], [place] [address] Jul, [facility] [address] [id number] [address] [place] [address], [place] [address] Jul, [facility] [address] [id number] [address] [place] [address], [place] [address] Jul, [facility] [address] [id number] [address] [place] [address], [place] [address] Jul, [facility] [address] [id number] [address] [place] [address], [place] [address] Jul, [facility] [address] [id number] [address] [place] [address], [place] [address] Jul, [facility] [address] [id number] [address] [place] [address], [place] [address] Jul, [facility] [address] [id number] [address] [place] [address], [place] [address] Jul, [facility] [address] [id number] [address] [place] [address], [place] [address] Jul, [facility] [address] [id number] [address] [place] [address], [place] [address] Jul, [facility] [address] [id number] [address] [place] [address], [place] [address] Jul, [facility] [address] [id number] [address] [place] [address], [place] [address] Jun, [facility] [address] [id number] [address] [place] [address], [place] [address] Jun, [facility] [address] [id number] [address] [place] [address] Jun, [facility] [address] [id number] [address] [place] [address] Jun, [facility] [address] [id number] [address] [place] [address] May, [facility] [address] [id number] [address] [place] [address] May, [facility] [address] [id number] [place] [id number] May, [facility] [address] [id number] [address] [place] [address] May, [facility] [address] [id number] [address] [place] [address] May, [facility] [address] [id number] [address] [place] [address] May, [facility] [address] [id number] [address] [place] [address] May, [facility] [address] [id number] [address] [place] [address] May, [facility] [address] [id number] [address] [place] [address] May, [facility] [address] [id number] [place] [id number] May, [facility] [address] [id number] [address] [place] [address] May, [facility] [place] [address] [id number] [place] [id number] May, [facility] [address] [id number] [address] [place] [address], [place] [address] May, [facility] [address] [id number] [place] [id number] May, [facility] [address] [id number] [address] [place] [address], [place] [address] May, IMMUNIZATIONS No Known Immunizations SOCIAL HISTORY [...] difficile infection Medical History [facility] Medical History 08/2019 PE [...] History removal of right neck cancer [facility] 02/10 8 Surgical History removal of cancer in neck 04/30 Surgical History port placement 04/30 Surgical History Peg tube placement 07/08/19 Hospitalization History amputation transmetatarsal Hospitalization History hip replacement Hospitalization History CVA 12/2014 Hospitalization History Exacerbation COPD 10/23/15 Hospitalization History Diarrhea, leukocytosis--[facility] 01/08/16 Hospitalization History pseudomemranous colitis, sepsis--[facility] 04/21/2016 Hospitalization History C Diff--[facility] 05/10/2016 Hospitalization History sepsis, pneumonia, diarrhea--[facility] Hospitalization History recurrent cdiff, pneumonia-[facility] Hospitalization History sepsis,pneumonia- [facility] 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
--- OUTSIDE RECORDS SUMMARY | 2019-11-07 10:13 | XMS REPORT ---
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 084676652 Problem COPD (chronic obstructive pulmonary disease) J44.9 Active 98223021 Problem Hypertension I10 Active 6702503 3 Problem Primary insomnia F51.01 Active 397 2004 Problem Hx of Clostridium difficile infection Z86.19 Active 091636082 Problem Chronic obstructive pulmon disease w acute lower resp infc t J44.0 Active 626080276 Problem History of arthroplasty of right knee Z96.651 Active 395346150 Problem Leg pain, left M79.605 Active 42663 7008 Problem Status post partial amputation of left foot Z89.43 2 Active 364181686 Problem Edema R60.9 Active 582260114 Problem Tobacco abuse, 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 Ac tive 246000006 Problem Anxiety F41.9 Active 69150068 Problem Chronic pain syndrome G89.4 Active 948839133 Problem Anemia, unspecified type D64.9 Activ e 277631855 Problem Depression, unspecified depression type F32.9 Active 58636105 Problem Other chronic pain G89.29 Active 8 0698407 Problem Iron deficiency anemia, unspecified iron deficiency an emia type D50.9 Active 00972469 Problem Insomnia, unspecified G47.00 Active 454057350 Problem Seasonal allergic rhinitis due to pollen J30.1 Active 50496220 Problem History of oral cancer Z85.819 Active 152861268 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 36 3272375 Problem Atrial fibrillation I48.91 Active 48653732 Problem Chronic obstructive pulmonary disease with (acute) exa cerbation J44.1 Active 674950810 Problem Rheumatoid arthritis M06.9 Active 21775824 Problem Dysthymia F34.1 Active 72105089 Problem Neuropathy G62.9 Active 867624264 Problem Rheumatoid arthritis with po sitive rheumatoid factor, involving unspecified site M05.9 Active 97393173 Problem Hemiplegia and hemiparesis f ollowing cerebral infarction affecting right dominant side I69.351 Active 829009914 Problem Cancer of neck C76.0 Active 53801 9000 ALLERGIES No Information ENCOUNTERS Encounter Location Date Diagnosis [facility] [address] [facility] [id number] [address] [place] [phone] November, [facility] [address] [facility] [id number] [address] [place] [phone] 08 Oct, 2019 Thrush B37.0 [facility] [address] [facility] [id number] [address] [place] [phone] 08 Oct, 2019 [facility] [address] [facility] [id number] [address] [place] [phone] Sep, [facility] [address] [facility] [id number] [address] [place] [phone] Sep, Chronic pain syndrome G89.4 and Rheumatoid arthritis with positive rheumatoid factor, involving unspecified site M05.9 [facility] [address] [facility] [id number] [address] [place] [phone] 04 Sep, 2019 [facility] [address] [facility] [id number] [address] [place] [address] Aug, Chronic pain syndrome G89.[id number] [place] [phone] 19 Aug, 2019 Chronic obstructive pulmonar y disease with (acute) exacerbation J44.1 [facility] [address] [facility] [id number] [address] [place] [phone] 12 Aug, 2019 Single subsegmental pulmonar y embolism without acute cor pulmonale I26.93 ; Rheumatoid arthritis with positive rheumatoid factor, involving unspecified site M05.9 ; Chronic pain syndrome G89.4 ; Leg pain, left M79.605 and 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 [facility] [address] [id number] [address] [place] [phone] Aug, [facility] [address] [id number] [address] [place] [phone] Aug, 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 [facility] [address] [id number] [address] [place] [phone] 07 Aug, 2019 Chronic pain syndrome G89.4 [facility] [address] [id number] [address] [place] [phone] Jul, Primary insomnia F51.01 [facility] [address] [id number] [address] [place] [phone] Jul, Chronic pain syndrome G89.4 [facility] [address] [id number] [address] [place] [phone] Jul, [facility] [address] [id number] [address] [place] [phone] Jul, [facility] [address] [id number] [address] [place] [phone] Jul, Rheumatoid arthritis with po sitive rheumatoid factor, involving unspecified site M05.9 and Chronic pain syndrome G89.4 [facility] [address] [id number] [address] [place] [phone] Jul, [facility] [address] [id number] [address] [place] [phone] Jun, Rheumatoid arthritis with po sitive rheumatoid factor, involving unspecified site M05.9 [facility] [address] [id number] [address] [place] [id number] Jun, Chronic pain syndrome G89.4 ; Rheumatoid arthritis with positive rheumatoid factor, involving unspecified site M05.9 and Anxiety F41.9 [facility] [address] [id number] [address] [place] [phone] Jun, [facility] [address] [id number] [address] [place] [address] Jun, Hemorrhoids, unspecified hem orrhoid type K64.9 [facility] [address] [id number] [address] [place] [phone] Jun, Hemorrhoids, unspecified hem orrhoid type K64.9 ; Cancer of neck C76.0 and Drug-induced constipation K59.03 [facility] [address] [id number] [address] [place] [phone] Jun, [facility] [address] [id number] [address] [place] [phone] Jun, [facility] [address] [id number] [address] [place] [phone] Jun, Rheumatoid arthritis with po sitive rheumatoid factor, involving unspecified site M05.9 [facility] [address] [id number] [address] [place] [phone] May, [facility] [address] [id number] [address] [place] [address] May, Rheumatoid arthritis with po sitive rheumatoid factor, involving unspecified site M05.9 [facility] [address] [id number] [address] [place] [address] Apr, Primary insomnia F51.01 [facility] [address] [id number] [address] [place] [phone] Apr, Rheumatoid arthritis with po sitive rheumatoid factor, involving unspecified site M05.9 [facility] [address] [id number] [address] [place] [phone] Mar, [facility] [address] [id number] [address] [place] [phone] Mar, [facility] [address] [id number] [address] [place] [phone] Mar, Rheumatoid arthritis with po sitive rheumatoid factor, involving unspecified site M05.9 ; Atrial fibrillation I48.91 ; Chronic pain syndrome G89.4 ; Iron deficiency anemia, unspecified iron deficiency anemia type D50.9 and Hemiplegia and hemiparesis following cerebral infarction affecting right dominant side I69.351 [facility] [address] [id number] [address] [place] [address] Mar, Chronic pain syndrome G89.4 and Primary insomnia F51.01 [place] [address] [id number] [address] [place] [phone] Mar, Rheumatoid arthritis with po sitive rheumatoid factor, involving unspecified site M05.9 [place] [address] [facility] [id number] [address] [place] [phone] Feb, Rheumatoid arthritis with po sitive rheumatoid factor, involving unspecified site M05.9 ; Chronic pain syndrome G89.4 ; Atrial fibrillation I48.91 ; Iron deficiency anemia, unspecified iron deficiency anemia type D50.9 ; Hemiplegia and hemiparesis following cerebral infarction affecting right dominant side I69.351 and Primary insomnia F51.01 [facility] [address] [id number] [address] [place] [address] Feb, Chronic pain syndrome G89.4 [facility] [address] [id number] [address] [place] [phone] Jan, Chronic pain syndrome G89.4 [facility] [address] [id number] [address] [place] [phone] Jan, [facility] [address] [facility] [id number] [address] [place] [phone] Jan, [facility] [address] [id number] [address] [place] [address] Dec, [facility] [address] [facility] [id number] [address] [place] [address] Dec, Chronic pain syndrome G89.4 [facility] [address] [id number] [address] [place] [phone] Dec, [facility] [address] [id number] [address] [place] [address] November, Chronic pain syndrome G89.4 [facility] [address] [id number] [address] [place] [phone] Oct, Chronic pain syndrome G89.4 [facility] [address] [id number] [address] [place] [phone] Oct, [facility] [address] [id number] [address] [place] [address] Sep, Chronic pain syndrome G89.4 [facility] [address] [id number] [address] [place] [address] Sep, Leg pain, left M79.605 ; Rig ht leg pain M79.604 and Reactive cervical nodes R59.0 [facility] [address] [id number] [address] [place] [address] Sep, [facility] [address] [id number] [address] [place] [phone] Sep, Neuropathy G62.9 [facility] [address] [id number] [place] [id number] Sep, [facility] [address] [id number] [address] [place] [phone] Sep, Lymphadenopathy of left cerv ical region R59.0 [facility] [address] [id number] [address] [place] [phone] Sep, Lymphadenopathy of left cerv ical region R59.0 and Neuropathy G62.9 [facility] [address] [id number] [address] [place] [phone] Aug, Chronic pain syndrome G89.4 [facility] [address] [address] Aug, [place] [address] [address] Aug, Peripheral vascular disease, unspecified I73.9 ; Other chronic pain G89.29 ; Chronic obstructive pulmon disease w acute lower resp infct J44.0 and Primary insomnia F51.01 [place] [address] [address] Aug, Chronic pain syndrome G89.4 [place] [address] [address] Jul, Chronic pain syndrome G89.4 [place] [address] [address] Jun, Chronic pain syndrome G89.4 [place] [address] [address] May, Chronic pain syndrome G89.4 [facility] [address] [address] Apr, Cough R05 and Viral illness B34.9 [place] [address] [address] Apr, Encounter for immunization Z 23 [place] [address] [address] Apr, Chronic pain syndrome G89.4 [facility] [address] [address] Apr, Left acute otitis media H66. 92 [place] [address] [address] Mar, Rheumatoid arthritis M06.9 ; Other chronic pain G89.29 ; History of oral cancer Z85.819 and History of tachycardia Z87.898 [place] [address] [address] Mar, Chronic pain syndrome G89.4 [facility] [address] [id number] [address] [place] [address] Feb, Chronic pain syndrome G89.4 [facility] [address] [id number] [address] [place] [address] Feb, Chronic pain syndrome G89.4 [facility] [address] [id number] [address] [place] [address] Jan, Chronic pain syndrome G89.4 [facility] [address] [id number] [address] [place] [id number] Jan, [facility] [address] [id number] [address] [place] [address] Dec, Chronic pain syndrome G89.4 [facility] [address] [id number] [address] [place] [phone] November, Chronic pain syndrome G89.4 [facility] [address] [id number] [address] [place] [address] November, [facility] [address] [id number] [address] [place] [address] Oct, Chronic pain syndrome G89.4 [facility] [address] [id number] [address] [place] [phone] Oct, [facility] [address] [id number] [address] [place] [address] Oct, Chronic pain syndrome G89.4 [facility] [address] [id number] [address] [place] [id number] Oct, [facility] [address] [id number] [address] [place] [address] Oct, [facility] [address] [id number] [address] [place] [phone] Sep, Left upper quadrant pain R10 .12 ; Chronic pain syndrome G89.4 ; Left lower quadrant pain R10.32 ; Other chronic pain G89.29 ; Sacrococcygeal disorders, not elsewhere classified M53.3 and Seasonal allergic rhinitis due to pollen J30.1 [facility] [address] [id number] [address] [place] [phone] Sep, Chronic pain syndrome G89.4 [facility] [address] [facility] [id number] [address] [place] [address] Sep, [facility] [address] [facility] [id number] [address] [place] [address] Aug, Chronic pain syndrome G89.4 [facility] [address] [id number] [address] [place] [address] Aug, [facility] [address] [facility] [id number] [address] [place] [address] Aug, Insomnia, unspecified G47.00 [facility] [address] [facility] [id number] [address] [place] [address] Jul, [facility] [address] [facility] [id number] [address] [place] [address] Jul, [facility] [address] [facility] [id number] [address] [place] [address] Jul, Chronic pain syndrome G89.4 [facility] [address] [facility] [id number] [address] [place] [address] Jun, Chronic pain syndrome G89.4 [facility] [address] [facility] [id number] [address] [place] [address] 04 Jun, 2017 Chronic pain syndrome G89.4 [facility] [address] [facility] [id number] [address] [place] [address] May, [facility] [address] [facility] [id number] [address] [place] [address] 08 May, 2017 Shortness of breath R06.02 ; Peripheral vascular disease, unspecified I73.9 ; Pain in right knee M25.561 ; Other chronic pain G89.29 ; Chest wall pain R07.89 ; Chronic pain syndrome G89.4 ; Primary insomnia F51.01 and Ear pain, left H92.02 [facility] [address] [id number] [address] [place] [address] May, Anxiety F41.9 [facility] [address] [facility] [id number] [address] [place] [address] Apr, Pneumonia due to infectious organism, unspecified laterality, unspecified part of lung J18.9 ; Hypoxia R09.02 ; Bradycardia R00.1 ; History of Clostridium difficile Z87.19 and Primary insomnia F51.01 [place] [address] [id number] [address] [place] [address] Apr, Anxiety F41.9 [place] [address] [id number] [address] [place] [address] Apr, [place] [address] [id number] [address] [place] [address] Mar, Anxiety F41.9 [place] [address] [id number] [address] [place] [address] Feb, [place] [address] [facility] [id number] [address] [place] [address] Feb, [place] [address] [facility] [id number] [address] [place] [address] Feb, Abnormal finding on urinalys is R82.90 [place] [address] [id number] [address] [place] [address] Feb, [facility] [address] [id number] [address] [place] [address] Feb, Shortness of breath R06.02 ; Tachycardia R00.0 ; Cough R05 ; Ill feeling R68.89 and Abnormal finding on urinalysis R82.90 [place] [address] [id number] [address] [place] [address] Feb, Anxiety F41.9 [facility] [address] [facility] [id number] [address] [place] [address] Feb, Sore throat J02.9 and Acute diffuse otitis externa of left ear H60.312 [facility] [address] [facility] [id number] [address] [place] [address] Jan, [facility] [address] [facility] [id number] [address] [place] [address] Jan, [facility] [address] [id number] [facility] [place] [id number] Jan, [facility] [address] [facility] [id number] [address] [place] [phone] Jan, Depression, unspecified depr ession type F32.9 ; Chronic bronchitis, unspecified chronic bronchitis type J42 ; Chronic pain syndrome G89.4 and Anxiety F41.9 [facility] [address] [facility] [id number] [address] [place] [address] Jan, [facility] [address] [facility] [id number] [address] [place] [id number] Jan, [facility] [address] [facility] [id number] [address] [place] [phone] Jan, [facility] [address] [id number] [facility] [id number] Jan, Chronic pain syndrome G89.4 [employer] [facility] [address] [id number] Dec History of right knee surgery Z98.890 [facility] [address] [facility] [id number] [address] [place] [address] Dec, [facility] [address] [facility] [id number] [address] [place] [id number] Dec, Chronic pain syndrome G89.4 [facility] [address] [facility] [id number] [address] [place] [phone] November, Anxiety F41.[address] [facility] [address] [facility] [id number] [address] [place] [id number] 16 Nov, 2016 Acute cystitis without hemat uria N30.[address] [facility] [address] [facility] [id number] [address] [place] [address] November, Fever, unspecified fever cau se R50.9 and Acute cystitis without hematuria N30.00 [facility] [address] [place] [id number] [address] [place] [address] November, Chronic pain syndrome G89.4 [place] [address] [address] Oct, Anxiety F41.9 [place] [address] [address] Oct, Chronic pain syndrome G89.4 [place] [address] [address] Oct, Chronic pain syndrome G89.4 [place] [address] [place] [id number] [address] [place] [address] Oct, [place] [address] [address] Oct, Chronic pain syndrome G89.4 ; Pain in right knee M25.561 ; History of Clostridium difficile Z87.19 ; Iron deficiency anemia, unspecified iron deficiency anemia type D50.9 ; Peripheral vascular disease, unspecified I73.9 and Atrial fibrillation I48.91 [facility] [address] [place] [id number] [address] [place] [address] Oct, [place] [address] [address] Oct, Chronic pain syndrome G89.4 [place] [address] [place] [id number] [address] [place] [address] Sep, [place] [address] [address] Sep, Depression, unspecified depr ession type F32.9 ; Chronic bronchitis, unspecified chronic bronchitis type J42 ; Chronic pain syndrome G89.4 and Anxiety F41.9 [employer] [address] [id number] Sep History of Clostridium difficile infection Z86.19 and History of stroke Z86.73 [facility] [address] [id number] [id number] Sep, Anxiety F41.9 [facility] [address] [facility] [id number] [address] [place] [phone] Sep, Chronic pain syndrome G89.4 [facility] [address] [facility] [id number] [address] [place] [id number] Sep, [facility] [address] [id number] [id number] Sep, [facility] [address] [facility] [id number] [address] [place] [id number] 23 Aug, 2016 Anxiety F41.9 [facility] [address] [facility] [id number] [address] [place] [phone] Aug, Anxiety F41.9 [facility] [address] [facility] [id number] [address] [place] [id number] 16 Aug, 2016 [facility] [address] [facility] [id number] [address] [place] [phone] 14 Aug, 2016 Acute knee pain, unspecified laterality M25.569 [facility] [address] [facility] [id number] [address] [place] [phone] 13 Aug, 2016 [facility] [address] [facility] [id number] [address] [place] [phone] 09 Aug, 2016 Chronic pain syndrome G89.4 [facility] [address] [facility] [id number] [address] [place] [phone] 08 Aug, 2016 [facility] [address] [facility] [id number] [place] [id number] Aug, [facility] [address] [id number] [place] [phone] Jul, [facility] [address] [id number] [place] [id number] Jul, Anxiety F41.9 [facility] [address] [id number] [address] [place] [id number] Jul, Clostridium difficile diarrh ea A04.7 [employer] [address] [id number] Jul Clostridium difficile diarrhea A04.7 ; Chronic pain syndrome G89.4 ; Chronic obstructive pulmon disease w acute lower resp infct J44.0 and Pain in right knee M25.561 [facility] [id number] [place] [id number] Jul, [facility] [address] [facility] [id number] [address] [place] [address] Jul, Anxiety F41.9 and Chronic pa in syndrome G89.4 [facility] [address] [id number] [address] [place] [address] Jun, Anxiety F41.9 [facility] [address] [id number] [address] [place] [address] Jun, Rheumatoid arthritis 714.0 [facility] [address] [id number] [address] [place] [address] Jun, Chronic pain syndrome G89.4 [facility] [address] [id number] [address] [place] [address] Jun, [facility] [address] [facility] [id number] [address] [place] [address] Jun, [facility] [address] [facility] [id number] [address] [place] [address] Jun, History of pneumonia Z87.01 and History of Clostridium difficile Z87.19 [facility] [address] [id number] [address] [place] [address] Jun, [facility] [address] [id number] [address] [place] [address] May, [facility] [address] [facility] [id number] [address] [place] [address] May, Anxiety F41.9 [facility] [address] [facility] [id number] [address] [place] [phone] May, Chronic pain syndrome G89.4 [facility] [address] [facility] [id number] [address] [place] [address] May, Chronic bronchitis, unspecif ied chronic bronchitis type J42 [facility] [address] [facility] [id number] [address] [place] [address] May, [facility] [address] [facility] [id number] [address] [place] [address] May, C. difficile diarrhea A04.7 ; Peripheral edema R60.9 ; COPD (chronic obstructive pulmonary disease) J44.9 ; Rheumatoid arthritis, involving unspecified site, unspecified rheumatoid factor presence M06.9 ; Pain in right knee M25.561 ; Pain in left knee M25.562 and Other chronic pain G89.29 [facility] [address] [facility] [id number] [address] [place] [address] May, [facility] [address] [facility] [id number] [address] [place] [address] May, [facility] [address] [facility] [id number] [address] [place] [address] May, Anxiety F41.9 [facility] [address] [facility] [id number] [address] [place] [id number] Apr, [facility] [address] [facility] [id number] [address] [place] [address] Apr, Chronic pain syndrome G89.4 [facility] [address] [facility] [id number] [address] [place] [address] Apr, Leg pain, left M79.605 [facility] [address] [id number] [address] [place] [address] Apr, [facility] [address] [id number] [address] [place] [address] Apr, [facility] [address] [id number] [address] [place] [phone] Apr, [facility] [address] [id number] [address] [place] [address] Mar, Chronic pain syndrome G89.4 [facility] [facility] [address] [id number] [address] [place] [address] Mar, Acute frontal sinusitis, rec urrence not specified J01.10 [facility] [address] [id number] [address] [place] [id number] 20 Mar, 2016 Iron deficiency anemia, unsp ecified iron deficiency anemia type D50.9 ; Rheumatoid arthritis with positive rheumatoid factor, involving unspecified site M05.9 and Depression, unspecified depression type F32.9 [facility] [address] [id number] [address] [place] [address] Mar, Iron deficiency anemia, unsp ecified iron deficiency anemia type D50.9 ; Depression, unspecified depression type F32.9 and Rheumatoid arthritis with positive rheumatoid factor, involving unspecified site M05.9 [facility] [address] [id number] [address] [place] [address] Mar, [facility] [address] [id number] [address] [place] [address] Mar, [facility] [address] [id number] [address] [place] [address] Feb, Chronic pain syndrome G89.4 [facility] [address] [id number] [address] [place] [address] Feb, Status post partial amputati on of left foot Z89.432 ; Status post CVA Z86.73 ; Hemiplegia G81.90 and Anemia, unspecified type D64.9 [facility] [address] [facility] [id number] [address] [place] [address] Feb, [facility] [address] [id number] [address] [place] [phone] Feb, Anemia, unspecified type D64 .9 [facility] [address] [facility] [id number] [address] [place] [id number] Feb, [facility] [address] [facility] [id number] [address] [place] [phone] Feb, Iron deficiency anemia, unsp ecified iron deficiency anemia type D50.9 [facility] [address] [facility] [id number] [address] [place] [phone] Feb, [facility] [place] [address] [facility] [id number] [address] [place] [phone] Feb, Chronic bronchitis, unspecif ied chronic bronchitis type J42 [place] [address] [id number] [address] [place] [address] Feb, Iron deficiency anemia, unsp ecified iron deficiency anemia type D50.9 [place] [address] [facility] [id number] [address] [place] [phone] Feb, Chronic pain syndrome G89.4 [facility] [place] [address] [facility] [id number] [address] [place] [address] Feb, Anemia, unspecified type D64 .9 and Hypoxia R09.02 [facility] [address] [facility] [id number] [address] [place] [address] Feb, Anemia, unspecified type D64 .9 [facility] [address] [facility] [id number] [address] [place] [address] Jan, [facility] [address] [facility] [id number] [address] [place] [address] Jan, Anemia, unspecified type D64 .9 [facility] [address] [id number] [address] [place] [address] Jan, [facility] [address] [facility] [id number] [address] [place] [phone] Jan, Anemia, unspecified type D64 .9 [facility] [address] [facility] [id number] [address] [place] [address] Jan, Anemia, unspecified type D64 .9 [facility] [address] [facility] [id number] [address] [place] [address] Jan, [facility] [address] [facility] [id number] [address] [place] [address] Jan, Anemia, unspecified type D64 .9 [facility] [address] [facility] [id number] [address] [place] [address] Jan, [facility] [address] [facility] [id number] [address] [place] [phone] Jan, [facility] [address] [facility] [id number] [address] [place] [address] Jan, Chronic pain syndrome G89.4 [facility] [address] [facility] [id number] [address] [place] [address] Jan, Anemia, unspecified type D64 .9 [facility] [address] [facility] [id number] [address] [place] [address] Jan, 2016 Dysthymia F34.1 ; Cervicalgi a M54.2 ; Fatigue, unspecified type R53.83 and Depression, unspecified depression type F32.9 [facility] [address] [facility] [id number] [address] [place] [address] Dec, [facility] [address] [facility] [id number] [address] [place] [id number] 14 Dec, 2015 Anxiety F41.9 [facility] [address] [facility] [id number] [address] [place] [address] Dec, Chronic pain syndrome G89.4 [facility] [address] [facility] [id number] [address] [place] [address] November, [facility] [address] [facility] [id number] [address] [place] [address] November, Edema R60.9 and Dizziness R4 2 [place] [address] [place] [id number] [address] [place] [address] November, [facility] [address] [place] [id number] [place] [address] November, [place] [address] [address] November, COPD (chronic obstructive pu lmonary disease) J44.9 ; Increased tracheal secretions J39.8 and Edema R60.9 [facility] [address] [place] [id number] [address] [place] [address] Oct, [facility] [address] [place] [id number] [address] [place] [address] Oct, Shortness of breath R06.02 a nd Edema R60.9 [place] [address] [address] Oct, Chronic bronchitis, unspecif ied chronic bronchitis type J42 ; Peripheral vascular disease, unspecified I73.9 ; Rheumatoid arthritis M06.9 and Atrial fibrillation I48.91 [facility] [address] [place] [id number] [address] [place] [address] Oct, [facility] [id number] [place] [address] Oct, [facility] [address] [address] Oct, [facility] [address] [place] [id number] [address] [place] [phone] Oct, [facility] [address] [place] [id number] [place] [address] Oct, COPD exacerbation J44.1 [facility] [address] [facility] [id number] [address] [place] [address] Sep, [facility] [address] [facility] [id number] [address] [place] [address] Sep, [facility] [address] [facility] [id number] [address] [place] [address] Sep, [facility] [address] [facility] [id number] [address] [place] [address] Aug, [facility] [address] [facility] [id number] [address] [place] [address] Aug, 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 and P VD (peripheral vascular disease) I73.9 [facility] [address] [facility] [id number] [address] [place] [address] Aug, Bronchitis J40 ; COPD (chron ic obstructive pulmonary disease) J44.9 and Dysthymia F34.1 [facility] [address] [facility] [id number] [address] [place] [address] Aug, [facility] [address] [facility] [id number] [address] [place] [id number] Jul, [facility] [address] [facility] [id number] [address] [place] [address] Jul, [facility] [address] [facility] [id number] [address] [place] [address] Jul, [facility] [address] [facility] [id number] [address] [place] [phone] Jun, [facility] [address] [facility] [id number] [address] [place] [address] Jun, [facility] [address] [facility] [id number] [address] [place] [address] Jun, Peripheral vascular disease I73.9 [facility] [address] [id number] [address] [place] [address] Jun, [facility] [address] [id number] [address] [place] [address] Jun, [facility] [address] [id number] [address] [place] [address] Jun, Leg pain, left M79.605 ; Dys phagia, unspecified dysphagia R13.10 ; Insomnia, unspecified type G47.00 ; PVD (peripheral vascular disease) I73.9 and 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 [facility] [address] [id number] [address] [place] [address] May, [facility] [address] [id number] [address] [place] [address] May, [facility] [address] [id number] [address] [place] [address] May, [facility] [address] [id number] [address] [place] [phone] May, [facility] [address] [id number] [address] [place] [address] May, [facility] [address] [id number] [address] [place] [address] Apr, [facility] [address] [id number] [address] [place] [address] Apr, [facility] [address] [id number] [address] [place] [address] Mar, [facility] [address] [id number] [address] [place] [address] Mar, [facility] [address] [id number] [address] [place] [address] Feb, [facility] [address] [id number] [address] [place] [address] Feb, Nicotine abuse 305.1 ; Arthr algia 719.40 and 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 [facility] [address] [id number] [address] [place] [address] Feb, [facility] [address] [id number] [address] [place] [address] Jan, [facility] [address] [id number] [address] [place] [address] Jan, [facility] [address] [id number] [address] [place] [address] Jan, [facility] [address] [id number] [address] [place] [id number] Jan, [facility] [address] [id number] [address] [place] [address] Jan, 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 ; Rhe umatoid arthritis 714.0 ; Hypertension 401.9 ; GERD (gastroesophageal reflux disease) 530.81 ; Nicotine addiction 305.1 and Leukocytosis 288.60 [facility] [address] [id number] [address] [place] [address] Jan, [facility] [address] [id number] [address] [place] [phone] Jan, [facility] [address] [id number] [address] [place] [address] Jan, [facility] [address] [id number] [address] [place] [phone] Jan, [facility] [address] [id number] [address] [place] [address] Jan, [facility] [address] [id number] [address] [place] [phone] Dec, [facility] [address] [id number] [address] [place] [phone] Dec, [facility] [address] [id number] [address] [place] [address] Dec, [facility] [address] [place] [id number] [place] [address] Dec, [facility] [address] [id number] November, [facility] [address] [address] November, [facility] [address] [address] November, Shortness of breath 786.05 [facility] [address] [address] November, Rheumatoid arthritis 714.0 [facility] [address] [address] November, 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 [facility] [address] [address] November, Neuropathy 355.9 ; Insomnia 780.52 ; Dysthymia 300.4 ; Shortness of breath 786.05 ; Rheumatoid arthritis 714.0 and Nausea 787.02 [facility] [address] [place] [id number] [address] [place] [address] November, [facility] [address] [place] [id number] [address] [place] [address] November, [facility] [address] [address] Oct, [facility] [address] [address] Oct, [facility] [address] [id number] Oct, [facility] [address] [place] [id number] [address] [place] [address] Oct, [facility] [place] [facility] [address] [id number] [address] [place] [address], [place] [address] Sep, [facility] [address] [id number] [address] [place] [address], [place] [address] Sep, [facility] [place] [facility] [address] [id number] [address] [place] [address], [place] [address] Sep, [facility] [address] [id number] [address] [place] [address], [place] [address] Sep, [facility] [address] [id number] [address] [place] [address], [place] [address] Sep, [facility] [address] [id number] [address] [place] [address], [place] [address] Sep, [facility] [address] [id number] [address] [place] [address], [place] [address] Sep, [facility] [address] [id number] [address] [place] [address], [place] [address] Sep, [facility] [address] [id number] [address] [place] [address], [place] [address] Aug, [facility] [address] [id number] [address] [place] [address], [place] [address] Aug, [facility] [address] [id number] [address] [place] [address], [place] [address] Aug, [facility] [place] [facility] [address] [id number] [address] [place] [address], [place] [address] Aug, [facility] [address] [id number] [address] [place] [address], [place] [address] Aug, [facility] [place] [facility] [address] [id number] [address] [place] [address], [place] [address] Aug, [facility] [address] [id number] [address] [place] [address], [place] [address] Jul, [facility] [place] [facility] [address] [id number] [address] [place] [address] [address] Jul, [facility] [address] [id number] [address] [place] [address], [place] [address] Jul, [facility] [address] [id number] [address] [place] [address], [place] [address] Jul, [facility] [address] [id number] [address] [place] [address], [place] [address] Jul, [facility] [address] [id number] [address] [place] [address], [place] [address] Jul, [facility] [address] [id number] [address] [place] [address], [place] [address] Jul, [facility] [address] [id number] [address] [place] [address], [place] [address] Jul, [facility] [address] [id number] [address] [place] [address], [place] [address] Jul, [facility] [address] [id number] [address] [place] [address], [place] [address] Jul, [facility] [address] [id number] [address] [place] [address], [place] [address] Jun, [facility] [address] [id number] [address] [place] [address], [place] [address] Jun, [facility] [address] [id number] [address] [place] [address], [place] [address] Jun, [facility] [place] [facility] [address] [id number] [address] [place] [address], [place] [address] Jun, [facility] [address] [id number] [address] [place] [address], [place] [address] Jun, [facility] [address] [id number] [address] [place] [address], [place] [address] Jun, [facility] [place] [facility] [address] [id number] [address] [place] [address], [place] [address] Jun, [facility] [address] [id number] [address] [place] [address], [place] [address] Jun, [facility] [address] [id number] [address] [place] [address], [place] [address] Jun, [facility] [address] [id number] [address] [place] [address], [place] [address] Jun, [facility] [address] [id number] [address] [place] [address], [place] [address] Jun, [facility] [address] [id number] [address] [place] [address], [place] [address] Jun, [facility] [address] [id number] [address] [place] [address], [place] [address] Jun, [facility] [address] [id number] [address] [place] [address], [place] [address] Jun, [facility] [address] [id number] [address] [place] [address], [place] [address] Jun, [facility] [address] [id number] [address] [place] [address], [place] [address] Jun, [facility] [address] [id number] [address] [place] [address], [place] [address] May, [facility] [address] [id number] [address] [place] [address], [place] [address] May, [facility] [address] [id number] [address] [place] [address], [place] [address] May, [facility] [address] [id number] [address] [place] [address], [place] [address] May, [facility] [address] [id number] [address] [place] [address], [place] [address] May, [facility] [address] [id number] [address] [place] [address], [place] [address] May, [facility] [address] [id number] [address] [place] [address], [place] [address] May, [facility] [address] [id number] [address] [place] [address], [place] [address] May, [facility] [address] [id number] [address] [place] [address], [place] [address] May, [facility] [address] [id number] [address] [place] [address], [place] [address] Apr, [facility] [address] [id number] [address] [place] [address], [place] [address] Apr, [facility] [address] [id number] [address] [place] [address], [place] [address] Apr, [facility] [address] [id number] [address] [place] [address], [place] [address] Apr, [facility] [address] [id number] [address] [place] [address], [place] [address] Apr, [facility] [address] [id number] [address] [place] [address], [place] [address] Apr, [facility] [address] [id number] [address] [place] [address], [place] [id number] Apr, [facility] [address] [id number] [address] [place] [address], [place] [address] Apr, [facility] [address] [id number] [address] [place] [address], [place] [address] Apr, [facility] [address] [id number] [address] [place] [address], [place] [address] Apr, [facility] [address] [id number] [address] [place] [address], [place] [address] Apr, [facility] [address] [id number] [address] [place] [address], [place] [address] Apr, [facility] [address] [id number] [address] [place] [address], [place] [address] Mar, [facility] [address] [id number] [address] [place] [address], [place] [address] Mar, 2013 [facility] [address] [id number] [facility] [place] [address] Mar, 2013 [facility] [address] [id number] [address] [place] [address], [place] [address] Mar, 2013 [facility] [address] [id number] [address] [place] [address], [place] [address] Mar, 2013 [facility] [address] [id number] [address] [place] [address], [place] [address] Mar, 2013 [facility] [address] [id number] [address] [place] [address], [place] [address] Mar, 2013 [facility] [address] [id number] [address] [place] [address], [place] [address] Mar, [facility] [address] [id number] [address] [place] [address], [place] [address] Mar, [facility] [address] [id number] [address] [place] [address], [place] [address] Mar, [facility] [address] [id number] [address] [place] [address], [place] [address] Feb, [facility] [address] [id number] [address] [place] [address], [place] [address] Feb, [facility] [address] [id number] [address] [place] [address], [place] [address] Feb, [facility] [address] [id number] [address] [place] [address], [place] [address] Feb, [facility] [address] [id number] [address] [place] [address], [place] [address] Feb, [facility] [address] [id number] [address] [place] [address], [place] [address] Feb, [facility] [address] [id number] [address] [place] [address], [place] [address] Feb, [facility] [address] [id number] [facility] [place] [address] Feb, [facility] [address] [id number] [facility] [place] [address] Feb, [facility] [address] [id number] [facility] [place] [address] Feb, [facility] [address] [id number] [address] [place] [address], [place] [address] Feb, [facility] [address] [id number] [address] [place] [address], [place] [address] Feb, [facility] [address] [id number] [address] [place] [address], [place] [address] Feb, [facility] [address] [id number] [address] [place] [address], [place] [address] Feb, [facility] [address] [id number] [address] [place] [address], [place] [address] Feb, [facility] [address] [id number] [address] [place] [address], [place] [address] Feb, [facility] [address] [id number] [address] [place] [address], [place] [address] Jan, [facility] [address] [id number] [address] [place] [address], [place] [address] Jan, [facility] [address] [id number] [address] [place] [address], [place] [address] Jan, [facility] [address] [id number] [address] [place] [address], [place] [address] Jan, [facility] [address] [id number] [address] [place] [address], [place] [address] Jan, [facility] [address] [id number] [address] [place] [address], [place] [address] Jan, [facility] [address] [id number] [address] [place] [address], [place] [address] Dec, [facility] [address] [id number] [address] [place] [address], [place] [address] Dec, [facility] [address] [id number] [address] [place] [address], [place] [address] Dec, [facility] [address] [id number] [address] [place] [address], [place] [address] Dec, [facility] [address] [id number] [address] [place] [address], [place] [address] Dec, [facility] [address] [id number] [address] [place] [address], [place] [address] Dec, [facility] [address] [id number] [address] [place] [address], [place] [address] Dec, [facility] [address] [id number] [address] [place] [address], [place] [address] Dec, [facility] [address] [id number] [address] [place] [address], [place] [address] November, [facility] [address] [id number] [address] [place] [address], [place] [address] November, [facility] [address] [id number] [address] [place] [address], [place] [address] November, [facility] [address] [id number] [address] [place] [address], [place] [address] November, [facility] [address] [id number] [address] [place] [address], [place] [address] November, [facility] [address] [id number] [address] [place] [address], [place] [address] November, [facility] [address] [id number] [address] [place] [address], [place] [address] Oct, [facility] [address] [id number] [address] [place] [address], [place] [address] Oct, [facility] [address] [id number] [address] [place] [address], [place] [address] Oct, [facility] [address] [id number] [address] [place] [address], [place] [address] Oct, [facility] [address] [id number] [address] [place] [address], [place] [address] Sep, [facility] [address] [id number] [address] [place] [address], [place] [address] Sep, [facility] [address] [id number] [address] [place] [address], [place] [address] Sep, [facility] [address] [id number] [address] [place] [address], [place] [address] Sep, [facility] [address] [id number] [address] [place] [address], [place] [address] Sep, [facility] [address] [id number] [address] [place] [address], [place] [address] Sep, [facility] [address] [id number] [address] [place] [address], [place] [address] Aug, [facility] [address] [id number] [address] [place] [address], [place] [address] Aug, [facility] [address] [id number] [address] [place] [address], [place] [address] Aug, [facility] [address] [id number] [address] [place] [address], [place] [address] Aug, [facility] [address] [id number] [address] [place] [address], [place] [address] Aug, [facility] [address] [id number] [address] [place] [address], [place] [address] Aug, [facility] [address] [id number] [address] [place] [address], [place] [address] Jul, [facility] [address] [id number] [address] [place] [address], [place] [address] Jul, [facility] [address] [id number] [address] [place] [address], [place] [address] Jul, [facility] [address] [id number] [address] [place] [address], [place] [address] Jul, [facility] [address] [id number] [address] [place] [address], [place] [address] Jul, [facility] [address] [id number] [address] [place] [address], [place] [address] Jul, [facility] [address] [id number] [address] [place] [address], [place] [address] Jul, [facility] [address] [id number] [address] [place] [address], [place] [address] Jul, [facility] [address] [id number] [address] [place] [address], [place] [address] Jul, [facility] [address] [id number] [address] [place] [address], [place] [address] Jul, [facility] [address] [id number] [address] [place] [address], [place] [address] Jul, [facility] [address] [id number] [address] [place] [address], [place] [address] Jul, [facility] [address] [id number] [address] [place] [address], [place] [address] Jul, [facility] [address] [id number] [address] [place] [address], [place] [address] Jul, [facility] [address] [id number] [address] [place] [address], [place] [address] Jul, [facility] [address] [id number] [address] [place] [address], [place] [address] Jun, [facility] [address] [id number] [address] [place] [address], [place] [address] Jun, [facility] [address] [id number] [address] [place] [address] Jun, [facility] [address] [id number] [address] [place] [address] Jun, [facility] [address] [id number] [address] [place] [address] May, [facility] [address] [id number] [address] [place] [address] May, [facility] [place] [address] [id number] [place] [id number] May, [facility] [address] [id number] [address] [place] [address] May, [facility] [address] [id number] [address] [place] [address] May, [facility] [address] [id number] [address] [place] [address] May, [facility] [address] [id number] [address] [place] [address] May, [facility] [address] [id number] [address] [place] [address] May, [facility] [address] [id number] [address] [place] [address] May, [facility] [address] [id number] [place] [id number] May, [facility] [address] [id number] [address] [place] [address] May, [facility] [place] [address] [id number] [place] [id number] May, [facility] [address] [id number] [address] [place] [address], [place] [address] May, [facility] [address] [id number] [place] [id number] May, [facility] [address] [id number] [address] [place] [address], [place] [address] May, IMMUNIZATIONS No Known Immunizations SOCIAL HISTORY [...] leukocytosis--[facility] 01/08/16 Hospitalization History pseudomemranous colitis, sepsis--[facility] 04/21/2016 Hospitalization History C Diff--[facility] 05/10/2016 Hospitalization History sepsis, pneumonia, diarrhea--[facility] Hospitalization History recurrent cdiff, pneumonia-[facility] Hospitalization History sepsis,pneumonia- [facility] 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
--- OUTSIDE RECORDS SUMMARY | 2019-11-07 10:14 | XMS REPORT ---
Author Author POPELona MCCARTNEY SABINO Organization [facility] [address] [place] [address] Care Team Providers Care Industrial Psychologist Name Role Phone SABINO POPE Unavailable PROBLEMS Type Condition ICD9-CM Code LHO24-RM Code Onset Dates Condition S tatus SNOMED Code Problem Dysphagia, unspecified dysphagia R13.10 Active 04921476 Problem History of cerebrovascular accident with current residual effects I69.90 Active 455860304 Problem Peripheral vascular disease, unspecified I73.9 Active 536132724 Problem Osteoarthritis of foot M19.079 Active 679443651 Problem 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 604276832 Problem COPD (chronic obstructive pulmonary disease) J44.9 Active 79135977 Problem Hypertension I10 Active 4491864 3 Problem Primary insomnia F51.01 Active 397 2004 Problem Hx of Clostridium difficile infection Z86.19 Active 234460460 Problem Chronic obstructive pulmon disease w acute lower resp infc t J44.0 Active 344820321 Problem History of arthroplasty of right knee Z96.651 Active 300806085 Problem Leg pain, left M79.605 Active 73342 7008 Problem Status post partial amputation of left foot Z89.43 2 Active 979693577 Problem Edema R60.9 Active 989628317 Problem Tobacco abuse, 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 Ac tive 785090341 Problem Anxiety F41.9 Active 49109896 Problem Chronic pain syndrome G89.4 Active 264799009 Problem Anemia, unspecified type D64.9 Activ e 055576462 Problem Depression, unspecified depression type F32.9 Active 92182488 Problem Other chronic pain G89.29 Active 8 0368479 Problem Iron deficiency anemia, unspecified iron deficiency an emia type D50.9 Active 37261438 Problem Insomnia, unspecified G47.00 Active 987774850 Problem Seasonal allergic rhinitis due to pollen J30.1 Active 65479086 Problem History of oral cancer Z85.819 Active 311273386 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 36 0336657 Problem Atrial fibrillation I48.91 Active 33860359 Problem Chronic obstructive pulmonary disease with (acute) exa cerbation J44.1 Active 011820869 Problem Rheumatoid arthritis M06.9 Active 00507429 Problem Dysthymia F34.1 Active 32594050 Problem Neuropathy G62.9 Active 645202313 Problem Rheumatoid arthritis with po sitive rheumatoid factor, involving unspecified site M05.9 Active 56027290 Problem Hemiplegia and hemiparesis f ollowing cerebral infarction affecting right dominant side I69.351 Active 629812315 Problem Cancer of neck C76.0 Active 93621 9000 ALLERGIES No Information ENCOUNTERS Encounter Location Date Diagnosis [place] [address] [facility] [id number] [address] [place] [phone] November, [place] [address] [facility] [id number] [address] [place] [address] Sep, Chronic pain syndrome G89.4 and Rheumatoid arthritis with positive rheumatoid factor, involving unspecified site M05.9 [facility] [address] [facility] [id number] [address] [place] [address] Sep, [place] [address] [facility] [id number] [address] [place] [address] Aug, Chronic pain syndrome G89.[id number] [place] [phone] 19 Aug, 2019 Chronic obstructive pulmonar y disease with (acute) exacerbation J44.1 [facility] [address] [facility] [id number] [address] [place] [address] 12 Aug, 2019 Single subsegmental pulmonar y embolism without acute cor pulmonale I26.93 ; Rheumatoid arthritis with positive rheumatoid factor, involving unspecified site M05.9 ; Chronic pain syndrome G89.4 ; Leg pain, left M79.605 and 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 [facility] [address] [facility] [id number] [address] [place] [address] 11 Aug, 2019 [facility] [address] [id number] [address] [place] [address] 11 Aug, 2019 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 [facility] [address] [id number] [address] [place] [id number] 07 Aug, 2019 Chronic pain syndrome G89.4 [facility] [address] [id number] [address] [place] [phone] Jul, Primary insomnia F51.01 [facility] [address] [id number] [address] [place] [address] Jul, Chronic pain syndrome G89.4 [facility] [address] [id number] [address] [place] [phone] Jul, [facility] [address] [id number] [address] [place] [address] Jul, [facility] [address] [facility] [id number] [address] [place] [address] Jul, Rheumatoid arthritis with po sitive rheumatoid factor, involving unspecified site M05.9 and Chronic pain syndrome G89.4 [facility] [address] [id number] [address] [place] [phone] Jul, [facility] [address] [id number] [address] [place] [phone] Jun, Rheumatoid arthritis with po sitive rheumatoid factor, involving unspecified site M05.9 [facility] [address] [id number] [address] [place] [address] Jun, Chronic pain syndrome G89.4 ; Rheumatoid arthritis with positive rheumatoid factor, involving unspecified site M05.9 and Anxiety F41.9 [facility] [address] [id number] [address] [place] [address] Jun, [facility] [address] [id number] [address] [place] [phone] Jun, Hemorrhoids, unspecified hem orrhoid type K64.9 [facility] [address] [id number] [address] [place] [address] Jun, Hemorrhoids, unspecified hem orrhoid type K64.9 ; Cancer of neck C76.0 and Drug-induced constipation K59.03 [facility] [address] [facility] [id number] [address] [place] [address] Jun, [facility] [address] [facility] [id number] [address] [place] [address] Jun, [facility] [address] [facility] [id number] [address] [place] [address] Jun, Rheumatoid arthritis with po sitive rheumatoid factor, involving unspecified site M05.9 [facility] [address] [facility] [id number] [address] [place] [address] May, [facility] [address] [facility] [id number] [address] [place] [address] May, Rheumatoid arthritis with po sitive rheumatoid factor, involving unspecified site M05.9 [facility] [address] [facility] [id number] [address] [place] [address] Apr, Primary insomnia F51.01 [facility] [address] [facility] [id number] [address] [place] [address] Apr, Rheumatoid arthritis with po sitive rheumatoid factor, involving unspecified site M05.9 [facility] [address] [facility] [id number] [address] [place] [address] Mar, [facility] [address] [facility] [id number] [address] [place] [address] Mar, [facility] [address] [facility] [id number] [address] [place] [address] Mar, Rheumatoid arthritis with po sitive rheumatoid factor, involving unspecified site M05.9 ; Atrial fibrillation I48.91 ; Chronic pain syndrome G89.4 ; Iron deficiency anemia, unspecified iron deficiency anemia type D50.9 and Hemiplegia and hemiparesis following cerebral infarction affecting right dominant side I69.351 [place] [address] [id number] [address] [place] [address] Mar, Chronic pain syndrome G89.4 and Primary insomnia F51.01 [facility] [address] [id number] [address] [place] [address] Mar, Rheumatoid arthritis with po sitive rheumatoid factor, involving unspecified site M05.9 [facility] [address] [id number] [address] [place] [address] Feb, Rheumatoid arthritis with po sitive rheumatoid factor, involving unspecified site M05.9 ; Chronic pain syndrome G89.4 ; Atrial fibrillation I48.91 ; Iron deficiency anemia, unspecified iron deficiency anemia type D50.9 ; Hemiplegia and hemiparesis following cerebral infarction affecting right dominant side I69.351 and Primary insomnia F51.01 [facility] [address] [id number] [address] [place] [address] Feb, Chronic pain syndrome G89.4 [facility] [address] [id number] [address] [place] [address] Jan, Chronic pain syndrome G89.4 [facility] [address] [id number] [address] [place] [address] Jan, [facility] [address] [id number] [address] [place] [address] Jan, [facility] [address] [id number] [address] [place] [address] Dec, [facility] [address] [id number] [address] [place] [address] Dec, Chronic pain syndrome G89.4 [facility] [address] [id number] [address] [place] [address] Dec, [facility] [address] [id number] [address] [place] [address] November, Chronic pain syndrome G89.4 [facility] [address] [id number] [address] [place] [address] Oct, Chronic pain syndrome G89.4 [facility] [address] [facility] [id number] [address] [place] [address] Oct, [facility] [address] [facility] [id number] [address] [place] [address] Sep, Chronic pain syndrome G89.4 [facility] [address] [facility] [id number] [address] [place] [address] Sep, Leg pain, left M79.605 ; Rig ht leg pain M79.604 and Reactive cervical nodes R59.0 [facility] [address] [facility] [id number] [address] [place] [address] 14 Sep, 2018 [facility] [address] [place] [id number] [address] [place] [address] Sep, Neuropathy G62.9 [facility] [address] [place] [id number] [place] [address] [id number] Sep, [facility] [address] [place] [id number] [address] [place] [address] Sep, Lymphadenopathy of left cerv ical region R59.0 [facility] [address] [place] [id number] [address] [place] [address] Sep, Lymphadenopathy of left cerv ical region R59.0 and Neuropathy G62.9 [facility] [address] [place] [id number] [address] [place] [phone] Aug, Chronic pain syndrome G89.4 [facility] [address] [facility] [id number] [address] [place] [address] Aug, [facility] [address] [place] [id number] [address] [place] [address] 04 Aug, 2018 Peripheral vascular disease, unspecified I73.9 ; Other chronic pain G89.29 ; Chronic obstructive pulmon disease w acute lower resp infct J44.0 and Primary insomnia F51.01 [facility] [address] [place] [id number] [address] [place] [address] Aug, Chronic pain syndrome G89.4 [facility] [address] [facility] [id number] [address] [place] [address] Jul, Chronic pain syndrome G89.4 [facility] [address] [facility] [id number] [address] [place] [address] Jun, Chronic pain syndrome G89.4 [facility] [address] [facility] [id number] [address] [place] [address] May, Chronic pain syndrome G89.4 [facility] [address] [facility] [id number] [address] [place] [address] Apr, Cough R05 and Viral illness B34.9 [facility] [address] [facility] [id number] [address] [place] [address] Apr, Encounter for immunization Z 23 [facility] [address] [facility] [id number] [address] [place] [address] Apr, Chronic pain syndrome G89.4 [facility] [address] [facility] [id number] [address] [place] [address] Apr, Left acute otitis media H66. 92 [facility] [address] [facility] [id number] [address] [place] [address] Mar, Rheumatoid arthritis M06.9 ; Other chronic pain G89.29 ; History of oral cancer Z85.819 and History of tachycardia Z87.898 [facility] [address] [facility] [id number] [address] [place] [address] Mar, Chronic pain syndrome G89.4 [facility] [address] [facility] [id number] [address] [place] [address] Feb, Chronic pain syndrome G89.4 [facility] [address] [facility] [id number] [address] [place] [address] Feb, Chronic pain syndrome G89.4 [facility] [address] [facility] [id number] [address] [place] [address] Jan, Chronic pain syndrome G89.4 [facility] [address] [id number] [address] [place] [address] Jan, [facility] [address] [id number] [address] [place] [address] Dec, Chronic pain syndrome G89.4 [facility] [address] [id number] [address] [place] [phone] November, Chronic pain syndrome G89.4 [facility] [address] [id number] [address] [place] [phone] November, [facility] [address] [id number] [address] [place] [phone] Oct, Chronic pain syndrome G89.4 [facility] [address] [id number] [address] [place] [address] Oct, [facility] [address] [id number] [address] [place] [phone] Oct, Chronic pain syndrome G89.4 [facility] [address] [id number] [address] [place] [address] Oct, [facility] [address] [id number] [address] [place] [address] Oct, [facility] [address] [id number] [address] [place] [address] Sep, Left upper quadrant pain R10 .12 ; Chronic pain syndrome G89.4 ; Left lower quadrant pain R10.32 ; Other chronic pain G89.29 ; Sacrococcygeal disorders, not elsewhere classified M53.3 and Seasonal allergic rhinitis due to pollen J30.1 [facility] [address] [id number] [address] [place] [address] Sep, Chronic pain syndrome G89.4 [facility] [address] [id number] [address] [place] [address] Sep, [facility] [address] [id number] [address] [place] [address] Aug, Chronic pain syndrome G89.4 [facility] [address] [id number] [address] [place] [address] Aug, [facility] [address] [facility] [id number] [address] [place] [address] Aug, Insomnia, unspecified G47.00 [facility] [address] [id number] [address] [place] [address] Jul, [facility] [address] [id number] [address] [place] [address] Jul, [facility] [address] [facility] [id number] [address] [place] [address] Jul, Chronic pain syndrome G89.4 [facility] [address] [facility] [id number] [address] [place] [address] Jun, Chronic pain syndrome G89.4 [facility] [address] [facility] [id number] [address] [place] [address] Jun, Chronic pain syndrome G89.4 [facility] [address] [facility] [id number] [address] [place] [address] May, [facility] [address] [facility] [id number] [address] [place] [address] May, Shortness of breath R06.02 ; Peripheral vascular disease, unspecified I73.9 ; Pain in right knee M25.561 ; Other chronic pain G89.29 ; Chest wall pain R07.89 ; Chronic pain syndrome G89.4 ; Primary insomnia F51.01 and Ear pain, left H92.02 [facility] [address] [facility] [id number] [address] [place] [address] 06 May, 2017 Anxiety F41.9 [facility] [address] [facility] [id number] [address] [place] [address] Apr, Pneumonia due to infectious organism, unspecified laterality, unspecified part of lung J18.9 ; Hypoxia R09.02 ; Bradycardia R00.1 ; History of Clostridium difficile Z87.19 and Primary insomnia F51.01 [facility] [address] [id number] [address] [place] [address] Apr, Anxiety F41.9 [facility] [address] [id number] [address] [place] [address] Apr, [facility] [address] [id number] [address] [place] [address] Mar, Anxiety F41.9 [facility] [address] [id number] [address] [place] [address] Feb, [facility] [address] [facility] [id number] [address] [place] [address] Feb, [facility] [address] [facility] [id number] [address] [place] [address] Feb, Abnormal finding on urinalys is R82.90 [facility] [address] [id number] [address] [place] [address] Feb, [facility] [address] [facility] [id number] [address] [place] [address] Feb, Shortness of breath R06.02 ; Tachycardia R00.0 ; Cough R05 ; Ill feeling R68.89 and Abnormal finding on urinalysis R82.90 [facility] [address] [id number] [address] [place] [address] Feb, Anxiety F41.9 [facility] [address] [id number] [address] [place] [address] Feb, Sore throat J02.9 and Acute diffuse otitis externa of left ear H60.312 [facility] [address] [id number] [address] [place] [address] Jan, [facility] [address] [facility] [id number] [address] [place] [address] Jan, [facility] [id number] [place] [id number] Jan, [facility] [address] [facility] [id number] [address] [place] [address] Jan, Depression, unspecified depr ession type F32.9 ; Chronic bronchitis, unspecified chronic bronchitis type J42 ; Chronic pain syndrome G89.4 and Anxiety F41.9 [facility] [address] [facility] [id number] [address] [place] [address] Jan, [facility] [address] [facility] [id number] [address] [place] [address] Jan, [facility] [address] [place] [id number] [address] [place] [address] Jan, [facility] [id number] [place] [address] [id number] Jan, Chronic pain syndrome G89.4 [employer] [address] [id number] Dec History of right knee surgery Z98.890 [facility] [address] [facility] [id number] [address] [place] [address] Dec, [facility] [address] [facility] [id number] [address] [place] [address] Dec, Chronic pain syndrome G89.4 [facility] [address] [facility] [id number] [address] [place] [address] November, Anxiety F41.9 [facility] [address] [facility] [id number] [address] [place] [address] November, Acute cystitis without hemat uria N30.00 [facility] [address] [facility] [id number] [address] [place] [address] November, Fever, unspecified fever cau se R50.9 and Acute cystitis without hematuria N30.00 [facility] [address] [facility] [id number] [address] [place] [address] November, Chronic pain syndrome G89.4 [place] [address] [facility] [id number] [address] [place] [address] Oct, Anxiety F41.9 [place] [address] [facility] [id number] [address] [place] [address] Oct, Chronic pain syndrome G89.4 [place] [address] [facility] [id number] [address] [place] [address] Oct, Chronic pain syndrome G89.4 [place] [address] [facility] [id number] [address] [place] [address] Oct, [place] [address] [place] [id number] [address] [place] [address] Oct, Chronic pain syndrome G89.4 ; Pain in right knee M25.561 ; History of Clostridium difficile Z87.19 ; Iron deficiency anemia, unspecified iron deficiency anemia type D50.9 ; Peripheral vascular disease, unspecified I73.9 and Atrial fibrillation I48.91 [place] [address] [facility] [id number] [address] [place] [address] Oct, [place] [address] [place] [id number] [address] [place] [address] Oct, Chronic pain syndrome G89.4 [place] [address] [facility] [id number] [address] [place] [address] Sep, [place] [address] [place] [id number] [address] [place] [address] Sep, Depression, unspecified depr ession type F32.9 ; Chronic bronchitis, unspecified chronic bronchitis type J42 ; Chronic pain syndrome G89.4 and Anxiety F41.9 [employer] [address] [id number] Sep History of Clostridium difficile infection Z86.19 and History of stroke Z86.73 [facility] [id number] [place] [address] [id number] Sep, Anxiety F41.9 [facility] [address] [id number] [address] [place] [address] Sep, Chronic pain syndrome G89.4 [facility] [address] [id number] [address] [place] [id number] Sep, [facility] [id number] [place] [id number] Sep, [facility] [address] [id number] [address] [place] [id number] Aug, Anxiety F41.9 [facility] [address] [id number] [address] [place] [id number] Aug, Anxiety F41.9 [facility] [address] [id number] [address] [place] [phone] 16 Aug, 2016 [facility] [address] [facility] [id number] [address] [place] [phone] 14 Aug, 2016 Acute knee pain, unspecified laterality M25.569 [facility] [address] [id number] [address] [place] [id number] Aug, [facility] [address] [facility] [id number] [address] [place] [phone] 09 Aug, 2016 Chronic pain syndrome G89.4 [facility] [address] [id number] [address] [place] [id number] 08 Aug, 2016 [facility] [address] [id number] [address] [place] [phone] Aug, [facility] [address] [facility] [id number] [address] [place] [phone] Jul, [facility] [address] [facility] [id number] [address] [place] [phone] Jul, Anxiety F41.9 [facility] [address] [facility] [id number] [address] [place] [id number] Jul, Clostridium difficile diarrh ea A04.7 [employer] [address] [place], [place] [id number] Jul Clostridium difficile diarrhea A04.7 ; Chronic pain syndrome G89.4 ; Chronic obstructive pulmon disease w acute lower resp infct J44.0 and Pain in right knee M25.561 [facility] [address] [id number] [id number] Jul, [facility] [address] [id number] [address] [place] [address] Jul, Anxiety F41.9 and Chronic pa in syndrome G89.4 [facility] [address] [id number] [address] [place] [address] Jun, Anxiety F41.9 [facility] [address] [id number] [address] [place] [address] Jun, Rheumatoid arthritis 714.0 [facility] [address] [id number] [address] [place] [address] Jun, Chronic pain syndrome G89.4 [facility] [address] [id number] [address] [place] [address] Jun, [facility] [address] [id number] [address] [place] [address] Jun, [facility] [address] [id number] [address] [place] [address] Jun, History of pneumonia Z87.01 and History of Clostridium difficile Z87.19 [facility] [address] [id number] [address] [place] [address] Jun, [facility] [address] [id number] [address] [place] [address] May, [facility] [address] [id number] [address] [place] [address] May, Anxiety F41.9 [facility] [address] [id number] [address] [place] [address] May, Chronic pain syndrome G89.4 [facility] [address] [id number] [address] [place] [address] May, Chronic bronchitis, unspecif ied chronic bronchitis type J42 [facility] [address] [id number] [address] [place] [address] May, [facility] [address] [id number] [address] [place] [address] May, C. difficile diarrhea A04.7 ; Peripheral edema R60.9 ; COPD (chronic obstructive pulmonary disease) J44.9 ; Rheumatoid arthritis, involving unspecified site, unspecified rheumatoid factor presence M06.9 ; Pain in right knee M25.561 ; Pain in left knee M25.562 and Other chronic pain G89.29 [facility] [address] [id number] [address] [place] [address] May, [facility] [address] [id number] [address] [place] [address] May, [facility] [address] [id number] [address] [place] [address] May, Anxiety F41.9 [facility] [address] [id number] [address] [place] [address] Apr, [facility] [address] [id number] [address] [place] [address] Apr, Chronic pain syndrome G89.4 [facility] [address] [id number] [address] [place] [address] Apr, Leg pain, left M79.605 [facility] [address] [id number] [address] [place] [address] Apr, [facility] [address] [id number] [address] [place] [address] Apr, [facility] [address] [id number] [address] [place] [address] Apr, [facility] [address] [facility] [id number] [address] [place] [address] 28 Mar, 2016 Chronic pain syndrome G89.4 [facility] [address] [facility] [id number] [address] [place] [address] 22 Mar, 2016 Acute frontal sinusitis, rec urrence not specified J01.10 [facility] [address] [facility] [id number] [address] [place] [address] 20 Mar, 2016 Iron deficiency anemia, unsp ecified iron deficiency anemia type D50.9 ; Rheumatoid arthritis with positive rheumatoid factor, involving unspecified site M05.9 and Depression, unspecified depression type F32.9 [place] [address] [facility] [id number] [address] [place] [address] 13 Mar, 2016 Iron deficiency anemia, unsp ecified iron deficiency anemia type D50.9 ; Depression, unspecified depression type F32.9 and Rheumatoid arthritis with positive rheumatoid factor, involving unspecified site M05.9 [facility] [address] [id number] [address] [place] [address] Mar, [place] [address] [facility] [id number] [address] [place] [address] Mar, [place] [address] [facility] [id number] [address] [place] [address] Feb, Chronic pain syndrome G89.4 [facility] [address] [facility] [id number] [address] [place] [address] 30 Feb, 2016 Status post partial amputati on of left foot Z89.432 ; Status post CVA Z86.73 ; Hemiplegia G81.90 and Anemia, unspecified type D64.9 [facility] [address] [id number] [address] [place] [address] Feb, [facility] [address] [facility] [id number] [address] [place] [address] Feb, Anemia, unspecified type D64 .9 [facility] [address] [facility] [id number] [address] [place] [address] Feb, [place] [address] [place] [id number] [address] [place] [address] Feb, Iron deficiency anemia, unsp ecified iron deficiency anemia type D50.9 [facility] [address] [place] [id number] [address] [place] [address] Feb, [place] [address] [place] [id number] [address] [place] [address] Feb, Chronic bronchitis, unspecif ied chronic bronchitis type J42 [place] [address] [place] [id number] [address] [place] [address] Feb, Iron deficiency anemia, unsp ecified iron deficiency anemia type D50.9 [place] [address] [place] [id number] [address] [place] [address] Feb, Chronic pain syndrome G89.4 [place] [address] [place] [id number] [address] [place] [address] Feb, Anemia, unspecified type D64 .9 and Hypoxia R09.02 [place] [address] [place] [id number] [address] [place] [address] Feb, Anemia, unspecified type D64 .9 [place] [id number] [place] [id number] [address] [place] [address] Jan, [place] [address] [place] [id number] [address] [place] [address] Jan, Anemia, unspecified type D64 .9 [place] [address] [place] [id number] [address] [place] [address] Jan, [place] [address] [place] [id number] [address] [place] [address] Jan, Anemia, unspecified type D64 .9 [place] [address] [place] [id number] [address] [place] [address] Jan, Anemia, unspecified type D64 .9 [facility] [address] [facility] [id number] [address] [place] [address] Jan, [facility] [address] [facility] [id number] [address] [place] [address] Jan, Anemia, unspecified type D64 .9 [facility] [address] [facility] [id number] [address] [place] [address] Jan, [facility] [address] [facility] [id number] [address] [place] [address] Jan, [facility] [address] [facility] [id number] [address] [place] [address] Jan, Chronic pain syndrome G89.4 [facility] [address] [facility] [id number] [address] [place] [address] Jan, Anemia, unspecified type D64 .9 [facility] [address] [facility] [id number] [address] [place] [address] Jan, Dysthymia F34.1 ; Cervicalgi a M54.2 ; Fatigue, unspecified type R53.83 and Depression, unspecified depression type F32.9 [facility] [address] [place] [id number] [address] [place] [address] Dec, [facility] [id number] [place] [address] Dec, Anxiety F41.9 [facility] [address] [facility] [id number] [address] [place] [address] Dec, Chronic pain syndrome G89.4 [facility] [address] [facility] [id number] [address] [place] [address] November, [facility] [address] [facility] [id number] [address] [place] [address] November, Edema R60.9 and Dizziness R4 2 [facility] [address] [place] [id number] [address] [place] [address] November, [facility] [address] [facility] [id number] [address] [place] [address] November, [facility] [address] [facility] [id number] [address] [place] [address] November, COPD (chronic obstructive pu lmonary disease) J44.9 ; Increased tracheal secretions J39.8 and Edema R60.9 [facility] [address] [facility] [id number] [address] [place] [address] Oct, [facility] [address] [facility] [id number] [address] [place] [address] Oct, Shortness of breath R06.02 a nd Edema R60.9 [facility] [address] [facility] [id number] [address] [place] [address] Oct, Chronic bronchitis, unspecif ied chronic bronchitis type J42 ; Peripheral vascular disease, unspecified I73.9 ; Rheumatoid arthritis M06.9 and Atrial fibrillation I48.91 [facility] [address] [facility] [id number] [address] [place] [address] Oct, [facility] [address] [facility] [id number] [address] [place] [address] Oct, [facility] [address] [facility] [id number] [address] [place] [address] Oct, [facility] [address] [facility] [id number] [address] [place] [address] Oct, [facility] [address] [facility] [id number] [address] [place] [address] Oct, COPD exacerbation J44.1 [facility] [address] [facility] [id number] [address] [place] [address] Sep, [facility] [address] [facility] [id number] [address] [place] [address] Sep, [facility] [address] [facility] [id number] [address] [place] [address] Sep, [facility] [address] [facility] [id number] [address] [place] [address] Aug, [facility] [address] [place] [id number] [address] [place] [address] Aug, 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 and P VD (peripheral vascular disease) I73.9 [facility] [address] [facility] [id number] [address] [place] [address] Aug, Bronchitis J40 ; COPD (chron ic obstructive pulmonary disease) J44.9 and Dysthymia F34.1 [facility] [address] [facility] [id number] [address] [place] [address] Aug, [facility] [address] [place] [id number] [address] [place] [address] Jul, [facility] [address] [place] [id number] [address] [place] [address] Jul, [facility] [address] [place] [id number] [address] [place] [address] Jul, [facility] [address] [place] [id number] [address] [place] [address] Jun, [facility] [address] [place] [id number] [address] [place] [address] Jun, [facility] [address] [facility] [id number] [address] [place] [address] Jun, Peripheral vascular disease I73.9 [facility] [address] [facility] [id number] [address] [place] [address] Jun, [facility] [address] [place] [id number] [address] [place] [address] Jun, [facility] [address] [place] [id number] [address] [place] [address] Jun, Leg pain, left M79.605 ; Dys phagia, unspecified dysphagia R13.10 ; Insomnia, unspecified type G47.00 ; PVD (peripheral vascular disease) I73.9 and 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 [facility] [address] [id number] [address] [place] [address] May, [facility] [address] [facility] [id number] [address] [place] [address] May, [facility] [address] [id number] [address] [place] [address] May, [facility] [address] [id number] [address] [place] [address] May, [facility] [address] [id number] [address] [place] [address] May, [facility] [address] [facility] [id number] [address] [place] [address] Apr, [facility] [address] [facility] [id number] [address] [place] [address] Apr, [facility] [address] [id number] [address] [place] [address] Mar, [facility] [address] [place] [id number] [address] [place] [phone] Mar, [facility] [address] [facility] [id number] [address] [place] [address] Feb, [facility] [address] [facility] [id number] [address] [place] [address] Feb, Nicotine abuse 305.1 ; Arthr algia 719.40 and 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 [facility] [address] [facility] [id number] [address] [place] [address] Feb, [facility] [address] [facility] [id number] [address] [place] [address] Jan, [facility] [address] [place] [id number] [address] [place] [address] Jan, [facility] [address] [id number] [address] [place] [address] Jan, [facility] [address] [id number] [address] [place] [address] Jan, [facility] [address] [id number] [address] [place] [address] Jan, 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 ; Rhe umatoid arthritis 714.0 ; Hypertension 401.9 ; GERD (gastroesophageal reflux disease) 530.81 ; Nicotine addiction 305.1 and Leukocytosis 288.60 [facility] [address] [id number] [address] [place] [address] Jan, 2014 [facility] [address] [id number] [address] [place] [address] Jan, 2014 [facility] [address] [id number] [address] [place] [address] Jan, [facility] [address] [id number] [address] [place] [address] Jan, [facility] [address] [id number] [address] [place] [address] Jan, [facility] [address] [id number] [address] [place] [address] Dec, [facility] [address] [id number] [address] [place] [address] Dec, [facility] [address] [id number] [address] [place] [address] Dec, [facility] [address] [id number] [address] [place] [address] Dec, [facility] [address] [id number] [address] [place] [address] November, [facility] [address] [id number] [address] [place] [address] November, [facility] [address] [facility] [id number] [address] [place] [address] November, Shortness of breath 786.05 [facility] [address] [facility] [id number] [address] [place] [address] November, Rheumatoid arthritis 714.0 [facility] [address] [facility] [id number] [address] [place] [address] November, 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 [facility] [address] [facility] [id number] [address] [place] [address] November, Neuropathy 355.9 ; Insomnia 780.52 ; Dysthymia 300.4 ; Shortness of breath 786.05 ; Rheumatoid arthritis 714.0 and Nausea 787.02 [facility] [address] [place] [id number] [address] [place] [address] November, [facility] [address] [place] [id number] [address] [place] [address] November, [facility] [address] [place] [id number] [address] [place] [address] Oct, [facility] [address] [facility] [id number] [address] [place] [address] Oct, [facility] [address] [facility] [id number] [address] [place] [address] Oct, [facility] [address] [facility] [id number] [address] [place] [address] Oct, [facility] [address] [facility] [id number] [address] [place] [address] Sep, [facility] [address] [facility] [id number] [address] [place] [address] Sep, [facility] [address] [facility] [id number] [address] [place] [address] Sep, [facility] [address] [facility] [id number] [address] [place] [address] Sep, [facility] [address] [id number] [address] [place] [address], [place] [address] Sep, [facility] [address] [id number] [address] [place] [address], [place] [address] Sep, [facility] [address] [id number] [address] [place] [address], [place] [address] Sep, [facility] [address] [id number] [address] [place] [address], [place] [address] Sep, [facility] [address] [id number] [address] [place] [address], [place] [address] Aug, [facility] [address] [id number] [address] [place] [address], [place] [address] Aug, [facility] [address] [id number] [address] [place] [address], [place] [address] Aug, [facility] [address] [id number] [address] [place] [address], [place] [address] Aug, [facility] [address] [id number] [address] [place] [address], [place] [address] Aug, [facility] [address] [id number] [address] [place] [address], [place] [address] Aug, [facility] [address] [id number] [address] [place] [address], [place] [address] Jul, [facility] [address] [id number] [address] [place] [address], [place] [address] Jul, [facility] [address] [id number] [address] [place] [address], [place] [address] Jul, [facility] [address] [id number] [address] [place] [address], [place] [address] Jul, [facility] [address] [id number] [address] [place] [address], [place] [address] Jul, [facility] [address] [id number] [address] [place] [address], [place] [address] Jul, [facility] [address] [id number] [address] [place] [address], [place] [address] Jul, [facility] [address] [id number] [address] [place] [address], [place] [address] Jul, [facility] [address] [id number] [address] [place] [address], [place] [address] Jul, [facility] [address] [id number] [address] [place] [address], [place] [address] Jul, [facility] [address] [id number] [address] [place] [address], [place] [address] Jun, [facility] [address] [id number] [address] [place] [address], [place] [address] Jun, [facility] [address] [id number] [address] [place] [address], [place] [address] Jun, [facility] [address] [id number] [address] [place] [address], [place] [address] Jun, [facility] [address] [id number] [address] [place] [address], [place] [address] Jun, [facility] [address] [id number] [address] [place] [address], [place] [address] Jun, [facility] [address] [id number] [address] [place] [address], [place] [address] Jun, [facility] [address] [id number] [address] [place] [address], [place] [address] Jun, [facility] [address] [id number] [address] [place] [address], [place] [address] Jun, [facility] [address] [id number] [address] [place] [address], [place] [address] Jun, [facility] [address] [id number] [address] [place] [address] [address] Jun, [facility] [address] [id number] [address] [place] [address], [place] [address] Jun, [facility] [address] [id number] [address] [place] [address], [place] [address] Jun, [facility] [address] [id number] [address] [place] [address], [place] [address] Jun, [facility] [address] [id number] [address] [place] [address], [place] [address] Jun, [facility] [address] [id number] [address] [place] [address], [place] [address] Jun, [facility] [address] [id number] [address] [place] [address], [place] [address] May, [facility] [address] [id number] [address] [place] [address], [place] [address] May, [facility] [address] [id number] [address] [place] [address], [place] [address] May, [facility] [address] [id number] [address] [place] [address], [place] [address] May, [facility] [address] [id number] [address] [place] [address], [place] [address] May, [facility] [address] [id number] [address] [place] [address], [place] [address] May, [facility] [address] [id number] [address] [place] [address] May, [facility] [address] [id number] [address] [place] [address], [place] [address] May, [facility] [address] [id number] [address] [place] [address], [place] [address] May, [facility] [address] [id number] [address] [place] [address], [place] [address] Apr, [facility] [address] [id number] [address] [place] [address], [place] [address] 24 Apr, 2014 [facility] [address] [id number] [address] [place] [address], [place] [address] Apr, [facility] [address] [id number] [address] [place] [address], [place] [address] Apr, [facility] [address] [id number] [address] [place] [address], [place] [address] Apr, [facility] [address] [id number] [address] [place] [address], [place] [address] Apr, [facility] [address] [id number] [address] [place] [address], [place] [address] Apr, [facility] [address] [id number] [address] [place] [address], [place] [address] Apr, [facility] [address] [id number] [address] [place] [address], [place] [address] Apr, [facility] [address] [id number] [address] [place] [address], [place] [address] Apr, [facility] [facility] [address] [id number] [address] [place] [address], [place] [address] Apr, [facility] [address] [id number] [address] [place] [address], [place] [address] Apr, [facility] [address] [id number] [address] [place] [address], [place] [address] 22 Mar, 2013 [facility] [address] [id number] [address] [place] [address], [place] [address] 22 Mar, 2013 [facility] [address] [id number] [address] [place] [address], [place] [address] 19 Mar, 2013 [facility] [address] [id number] [address] [place] [address], [place] [address] 19 Mar, 2013 [facility] [address] [id number] [address] [place] [address], [place] [address] Mar, 2013 [facility] [address] [id number] [facility] [place] [address] Mar, [facility] [address] [id number] [facility] [place] [address] Mar, [facility] [address] [id number] [facility] [place] [address] Mar, [facility] [address] [id number] [address] [place] [address], [place] [address] Mar, [facility] [address] [id number] [address] [place] [address], [place] [address] Mar, [facility] [address] [id number] [address] [place] [address], [place] [address] Feb, [facility] [address] [id number] [address] [place] [address], [place] [address] Feb, [facility] [address] [id number] [address] [place] [address], [place] [address] Feb, [facility] [address] [id number] [address] [place] [address], [place] [address] Feb, [facility] [address] [id number] [address] [place] [address], [place] [address] Feb, [facility] [address] [id number] [address] [place] [address], [place] [address] Feb, [facility] [address] [id number] [address] [place] [address], [place] [address] Feb, [facility] [address] [id number] [address] [place] [address], [place] [address] Feb, [facility] [address] [id number] [address] [place] [address], [place] [address] Feb, [facility] [address] [id number] [address] [place] [address], [place] [address] Feb, [facility] [address] [id number] [address] [place] [address], [place] [address] Feb, [facility] [address] [id number] [facility] [place] [address] Feb, [facility] [address] [id number] [address] [place] [address], [place] [address] Feb, [facility] [address] [id number] [address] [place] [address], [place] [address] Feb, [facility] [address] [id number] [address] [place] [address], [place] [address] Feb, [facility] [address] [id number] [address] [place] [address], [place] [address] Feb, [facility] [address] [id number] [address] [place] [address], [place] [address] Jan, [facility] [address] [id number] [address] [place] [address], [place] [address] Jan, [facility] [address] [id number] [address] [place] [address], [place] [address] Jan, [facility] [address] [id number] [address] [place] [address], [place] [address] Jan, [facility] [address] [id number] [address] [place] [address], [place] [address] Jan, [facility] [address] [id number] [address] [place] [address], [place] [address] Jan, [facility] [address] [id number] [address] [place] [address], [place] [address] Dec, [facility] [address] [id number] [address] [place] [address], [place] [address] Dec, [facility] [address] [id number] [address] [place] [address], [place] [address] Dec, [facility] [address] [id number] [address] [place] [address], [place] [address] Dec, [facility] [address] [id number] [facility] [place] [address] Dec, [facility] [address] [id number] [facility] [place] [address] Dec, [facility] [address] [id number] [facility] [place] [address] Dec, [facility] [address] [id number] [address] [place] [address], [place] [address] Dec, [facility] [address] [id number] [address] [place] [address], [place] [address] November, [facility] [address] [id number] [address] [place] [address], [place] [address] November, [facility] [address] [id number] [address] [place] [address], [place] [address] November, [facility] [address] [id number] [address] [place] [address], [place] [address] November, [facility] [address] [id number] [address] [place] [address], [place] [address] November, [facility] [address] [id number] [address] [place] [address], [place] [address] November, [facility] [address] [id number] [address] [place] [address], [place] [address] Oct, [facility] [address] [id number] [address] [place] [address], [place] [address] Oct, [facility] [address] [id number] [address] [place] [address], [place] [address] Oct, [facility] [address] [id number] [address] [place] [address], [place] [address] Oct, [facility] [address] [id number] [address] [place] [address], [place] [address] Sep, [facility] [address] [id number] [address] [place] [address], [place] [address] Sep, [facility] [address] [id number] [facility] [place] [address] Sep, [facility] [address] [id number] [address] [place] [address], [place] [address] Sep, [facility] [address] [id number] [facility] [place] [address] Sep, [facility] [address] [id number] [address] [place] [address], [place] [address] Sep, [facility] [address] [id number] [address] [place] [address], [place] [address] Aug, [facility] [address] [id number] [address] [place] [address], [place] [address] Aug, [facility] [address] [id number] [address] [place] [address], [place] [address] Aug, [facility] [address] [id number] [address] [place] [address], [place] [address] Aug, [facility] [address] [id number] [address] [place] [address], [place] [address] Aug, [facility] [address] [id number] [address] [place] [address], [place] [address] Aug, [facility] [address] [id number] [address] [place] [address], [place] [address] Jul, [facility] [address] [id number] [address] [place] [address], [place] [address] Jul, [facility] [address] [id number] [address] [place] [address], [place] [address] Jul, [facility] [address] [id number] [address] [place] [address], [place] [address] Jul, [facility] [address] [id number] [address] [place] [address], [place] [address] Jul, [facility] [address] [id number] [address] [place] [address], [place] [address] Jul, [facility] [address] [id number] [address] [place] [address], [place] [address] Jul, [facility] [address] [id number] [address] [place] [address], [place] [address] Jul, [facility] [address] [id number] [address] [place] [address], [place] [address] Jul, [facility] [address] [id number] [address] [place] [address], [place] [address] Jul, [facility] [address] [id number] [address] [place] [address], [place] [address] Jul, [facility] [address] [id number] [address] [place] [address], [place] [address] Jul, [facility] [address] [id number] [address] [place] [address], [place] [address] Jul, [facility] [address] [id number] [address] [place] [address], [place] [address] Jul, [facility] [address] [id number] [address] [place] [address], [place] [address] Jul, [facility] [address] [id number] [address] [place] [address], [place] [address] Jun, [facility] [address] [id number] [address] [place] [address], [place] [address] Jun, [facility] [address] [id number] [address] [place] [address], [place] [address] Jun, [facility] [address] [id number] [address] [place] [address], [place] [address] Jun, [facility] [address] [id number] [address] [place] [address], [place] [address] May, [facility] [address] [id number] [address] [place] [address], [place] [address] May, [facility] [address] [id number] [place] [id number] May, [facility] [address] [id number] [address] [place] [address] May, [facility] [address] [id number] [address] [place] [address] May, [facility] [address] [id number] [address] [place] [address] May, [facility] [address] [id number] [address] [place] [address] May, [facility] [address] [id number] [address] [place] [address] May, [facility] [address] [facility] [id number] [address] [place] [address] May, [facility] [address] [id number] [place] [id number] May, [facility] [address] [id number] [address] [place] [address] May, [facility] [address] [facility] [id number] [place] [id number] May, [facility] [address] [id number] [address] [place] [address] May, [facility] [address] [facility] [id number] [place] [id number] May, [facility] [address] [id number] [address] [place] [address] May, IMMUNIZATIONS No Known Immunizations SOCIAL HISTORY Never Assessed REASON FOR VISIT PLAN OF CARE VITAL SIGNS Height 63 in 2013-06-07 Weight 140 lbs 2013-06-07 Temperature 97.1 degrees Fahrenheit 2013-06-07 Heart Rate 96 bpm 2013-06-07 Respiratory Rate 18 2013-06-07 Blood pressure systolic 122 mmHg 2013-06-07 Blood pressure diastolic 68 mmHg 2013-06-07 MEDICATIONS Unknown Medications RESULTS No Results PROCEDURES Procedure Date Ordered Result Body Site CHEST X-RAY Jun 07, 2013 INSTRUCTIONS MEDICATIONS ADMINISTERED No Known Medications MEDICAL [...] Diarrhea, leukocytosis--[facility] 01/08/16 Hospitalization History pseudomemranous colitis, sepsis--[facility] 04/21/2016 Hospitalization History C Diff--[facility] 05/10/2016 Hospitalization History sepsis, pneumonia, diarrhea--[facility] Hospitalization History recurrent cdiff, pneumonia-[facility] Hospitalization History sepsis,pneumonia- [facility] 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
--- OUTSIDE RECORDS SUMMARY | 2019-11-07 10:14 | XMS REPORT ---
Author Author Lona YUSUF Organization 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 945943624 Problem COPD (chronic obstructive pulmonary disease) J44.9 Active 36230836 Problem Hypertension I10 Active 2137109 3 Problem Primary insomnia F51.01 Active 397 2004 Problem Hx of Clostridium difficile infection Z86.19 Active 486680310 Problem Chronic obstructive pulmon disease w acute lower resp infc t J44.0 Active 729865779 Problem History of arthroplasty of right knee Z96.651 Active 768017786 Problem Leg pain, left M79.605 Active 59879 7008 Problem Status post partial amputation of left foot Z89.43 2 Active 926777769 Problem Edema R60.9 Active 055523889 Problem Tobacco abuse, 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 Ac tive 948329927 Problem Anxiety F41.9 Active 80354663 Problem Chronic pain syndrome G89.4 Active 931988714 Problem Anemia, unspecified type D64.9 Activ e 751306588 Problem Depression, unspecified depression type F32.9 Active 45200000 Problem Other chronic pain G89.29 Active 8 2495243 Problem Iron deficiency anemia, unspecified iron deficiency an emia type D50.9 Active 68763621 Problem Insomnia, unspecified G47.00 Active 532811335 Problem Seasonal allergic rhinitis due to pollen J30.1 Active 94690088 Problem History of oral cancer Z85.819 Active 767611799 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 36 4980510 Problem Atrial fibrillation I48.91 Active 71557230 Problem Chronic obstructive pulmonary disease with (acute) exa cerbation J44.1 Active 294819752 Problem Rheumatoid arthritis M06.9 Active 55522600 Problem Dysthymia F34.1 Active 90068775 Problem Neuropathy G62.9 Active 449481712 Problem Rheumatoid arthritis with po sitive rheumatoid factor, involving unspecified site M05.9 Active 37369577 Problem Hemiplegia and hemiparesis f ollowing cerebral infarction affecting right dominant side I69.351 Active 927765387 Problem Cancer of neck C76.0 Active 29786 9000 ALLERGIES No Information ENCOUNTERS Encounter Location Date Diagnosis [place] [address] [address] [facility] [id number] [address] [place] [address] November, [place] [address] [address] [facility] [id number] [address] [place] [address] Sep, [place] [address] [address] [facility] [id number] [address] [place] [address] Sep, Chronic pain syndrome G89.4 and Rheumatoid arthritis with positive rheumatoid factor, involving unspecified site M05.9 [place] [address] [address] [facility] [id number] [address] [place] [address] Sep, [place] [address] [address] [facility] [id number] [address] [place] [address] Aug, Chronic pain syndrome G89.[id number] [place] [address] Aug, Chronic obstructive pulmonar y disease with (acute) exacerbation J44.1 [place] [address] [address] [facility] [id number] [address] [place] [address] 12 Aug, 2019 Single subsegmental pulmonar y embolism without acute cor pulmonale I26.93 ; Rheumatoid arthritis with positive rheumatoid factor, involving unspecified site M05.9 ; Chronic pain syndrome G89.4 ; Leg pain, left M79.605 and 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 [address] [id number] [address] [place] [phone] 07 Aug, 2019 Chronic pain syndrome G89.4 [facility] [address] [id number] [address] [place] [address] Jul, Primary insomnia F51.01 [facility] [address] [id number] [address] [place] [address] Jul, Chronic pain syndrome G89.4 [facility] [address] [id number] [address] [place] [address] Jul, [facility] [address] [id number] [address] [place] [address] Jul, [facility] [address] [id number] [address] [place] [address] Jul, Rheumatoid arthritis with po sitive rheumatoid factor, involving unspecified site M05.9 and Chronic pain syndrome G89.4 [facility] [address] [id number] [address] [place] [address] Jul, [facility] [address] [id number] [address] [place] [address] Jun, Rheumatoid arthritis with po sitive rheumatoid factor, involving unspecified site M05.9 [facility] [address] [id number] [address] [place] [address] Jun, Chronic pain syndrome G89.4 ; Rheumatoid arthritis with positive rheumatoid factor, involving unspecified site M05.[address] [facility] [address] [id number] [address] [place] [address] Jun, [facility] [address] [id number] [address] [place] [address] Jun, Hemorrhoids, unspecified hem orrhoid type K64.9 [facility] [address] [id number] [address] [place] [address] Jun, Hemorrhoids, unspecified hem orrhoid type K64.9 ; Cancer of neck C76.0 and Drug-induced constipation K59.03 [facility] [address] [id number] [address] [place] [address] Jun, [facility] [address] [id number] [address] [place] [address] Jun, [facility] [address] [id number] [address] [place] [address] Jun, Rheumatoid arthritis with po sitive rheumatoid factor, involving unspecified site M05.9 [facility] [address] [id number] [address] [place] [address] May, [facility] [address] [id number] [address] [place] [address] May, Rheumatoid arthritis with po sitive rheumatoid factor, involving unspecified site M05.9 [facility] [address] [id number] [address] [place] [address] Apr, Primary insomnia F51.01 [facility] [address] [id number] [address] [place] [address] Apr, Rheumatoid arthritis with po sitive rheumatoid factor, involving unspecified site M05.9 [facility] [address] [id number] [address] [place] [address] Mar, [facility] [address] [id number] [address] [place] [address] Mar, [facility] [address] [facility] [id number] [address] [place] [address] Mar, Rheumatoid arthritis with po sitive rheumatoid factor, involving unspecified site M05.9 ; Atrial fibrillation I48.91 ; Chronic pain syndrome G89.4 ; Iron deficiency anemia, unspecified iron deficiency anemia type D50.9 and Hemiplegia and hemiparesis following cerebral infarction affecting right dominant side I69.351 [facility] [address] [id number] [address] [place] [address] 23 Mar, 2019 Chronic pain syndrome G89.4 and Primary insomnia F51.01 [facility] [address] [id number] [address] [place] [id number] Mar, Rheumatoid arthritis with po sitive rheumatoid factor, involving unspecified site M05.9 [facility] [address] [id number] [address] [place] [address] Feb, Rheumatoid arthritis with po sitive rheumatoid factor, involving unspecified site M05.9 ; Chronic pain syndrome G89.4 ; Atrial fibrillation I48.91 ; Iron deficiency anemia, unspecified iron deficiency anemia type D50.9 ; Hemiplegia and hemiparesis following cerebral infarction affecting right dominant side I69.351 and Primary insomnia F51.01 [facility] [address] [id number] [address] [place] [address] Feb, Chronic pain syndrome G89.4 [facility] [address] [id number] [address] [place] [address] Jan, Chronic pain syndrome G89.4 [facility] [address] [id number] [address] [place] [id number] Jan, [facility] [address] [id number] [address] [place] [address] Jan, [facility] [address] [id number] [address] [place] [phone] Dec, [facility] [address] [id number] [address] [place] [address] Dec, Chronic pain syndrome G89.4 [facility] [address] [id number] [address] [place] [address] Dec, [facility] [address] [id number] [address] [place] [address] November, Chronic pain syndrome G89.4 [facility] [address] [id number] [address] [place] [address] Oct, Chronic pain syndrome G89.4 [facility] [address] [id number] [address] [place] [address] Oct, [facility] [address] [id number] [address] [place] [address] Sep, Chronic pain syndrome G89.4 [facility] [address] [id number] [address] [place] [address] Sep, Leg pain, left M79.605 ; Rig ht leg pain M79.604 and Reactive cervical nodes R59.0 [facility] [address] [id number] [address] [place] [address] Sep, [facility] [address] [facility] [id number] [address] [place] [address] Sep, Neuropathy G62.9 [facility] [address] [id number] [place] [id number] Sep, [facility] [address] [facility] [id number] [address] [place] [address] Sep, Lymphadenopathy of left cerv ical region R59.0 [facility] [address] [id number] [address] [place] [address] Sep, Lymphadenopathy of left cerv ical region R59.[address] [facility] [address] [id number] [address] [place] [address] Aug, Chronic pain syndrome G89.4 [facility] [address] [id number] [address] [place] [address] Aug, [facility] [address] [facility] [id number] [address] [place] [address] Aug, Peripheral vascular disease, unspecified I73.9 ; Other chronic pain G89.29 ; Chronic obstructive pulmon disease w acute lower resp infct J44.0 and Primary insomnia F51.01 [facility] [address] [facility] [id number] [address] [place] [address] Aug, Chronic pain syndrome G89.4 [facility] [address] [facility] [id number] [address] [place] [address] Jul, Chronic pain syndrome G89.4 [facility] [address] [place] [id number] [address] [place] [id number] Jun, Chronic pain syndrome G89.4 [facility] [address] [facility] [id number] [address] [place] [phone] May, Chronic pain syndrome G89.4 [facility] [address] [place] [id number] [address] [place] [address] Apr, Cough R05 and Viral illness B34.9 [place] [address] [address] [place] [id number] [address] [place] [address] Apr, Encounter for immunization Z 23 [place] [address] [address] [place] [id number] [address] [place] [address] Apr, Chronic pain syndrome G89.4 [facility] [address] [place] [id number] [address] [place] [address] Apr, Left acute otitis media H66. 92 [place] [address] [address] [place] [id number] [address] [place] [address] Mar, Rheumatoid arthritis M06.9 ; Other chronic pain G89.29 ; History of oral cancer Z85.819 and History of tachycardia Z87.898 [place] [address] [place] [id number] [address] [place] [address] Mar, Chronic pain syndrome G89.4 [place] [id number] [facility] [id number] [address] [place] [address] Feb, Chronic pain syndrome G89.4 [facility] [address] [place] [id number] [address] [place] [address] Feb, Chronic pain syndrome G89.4 [facility] [address] [id number] [address] [place] [address] Jan, Chronic pain syndrome G89.4 [facility] [address] [id number] [address] [place] [id number] Jan, [facility] [address] [id number] [address] [place] [address] Dec, Chronic pain syndrome G89.4 [facility] [address] [id number] [address] [place] [address] November, Chronic pain syndrome G89.4 [facility] [address] [id number] [address] [place] [address] November, [facility] [address] [id number] [address] [place] [address] Oct, Chronic pain syndrome G89.4 [facility] [address] [id number] [address] [place] [address] Oct, [facility] [address] [id number] [address] [place] [address] Oct, Chronic pain syndrome G89.4 [facility] [address] [id number] [address] [place] [address] Oct, [facility] [address] [id number] [address] [place] [address] Oct, [facility] [address] [id number] [address] [place] [address] Sep, Left upper quadrant pain R10 .12 ; Chronic pain syndrome G89.4 ; Left lower quadrant pain R10.32 ; Other chronic pain G89.29 ; Sacrococcygeal disorders, not elsewhere classified M53.3 and Seasonal allergic rhinitis due to pollen J30.1 [facility] [address] [id number] [address] [place] [address] Sep, Chronic pain syndrome G89.4 [facility] [address] [id number] [address] [place] [address] Sep, [facility] [address] [id number] [address] [place] [address] Aug, Chronic pain syndrome G89.4 [facility] [address] [facility] [id number] [address] [place] [address] Aug, [facility] [address] [facility] [id number] [address] [place] [address] Aug, Insomnia, unspecified G47.00 [facility] [address] [facility] [id number] [address] [place] [address] Jul, [facility] [address] [facility] [id number] [address] [place] [address] Jul, [facility] [address] [facility] [id number] [address] [place] [address] Jul, Chronic pain syndrome G89.4 [facility] [address] [facility] [id number] [address] [place] [address] Jun, Chronic pain syndrome G89.4 [facility] [address] [facility] [id number] [address] [place] [address] Jun, Chronic pain syndrome G89.4 [facility] [address] [facility] [id number] [address] [place] [address] May, [facility] [address] [facility] [id number] [address] [place] [address] May, Shortness of breath R06.02 ; Peripheral vascular disease, unspecified I73.9 ; Pain in right knee M25.561 ; Other chronic pain G89.29 ; Chest wall pain R07.89 ; Chronic pain syndrome G89.4 ; Primary insomnia F51.01 and Ear pain, left H92.02 [facility] [address] [facility] [id number] [address] [place] [address] May, Anxiety F41.9 [facility] [address] [facility] [id number] [address] [place] [address] Apr, Pneumonia due to infectious organism, unspecified laterality, unspecified part of lung J18.9 ; Hypoxia R09.02 ; Bradycardia R00.1 ; History of Clostridium difficile Z87.19 and Primary insomnia F51.01 [facility] [address] [facility] [id number] [address] [place] [address] Apr, Anxiety F41.9 [facility] [address] [facility] [id number] [address] [place] [address] Apr, [place] [address] [facility] [id number] [place] [address] Mar, Anxiety F41.9 [place] [address] [facility] [id number] [address] [place] [address] Feb, [facility] [address] [facility] [id number] [address] [place] [id number] Feb, [facility] [address] [facility] [id number] [address] [place] [address] Feb, Abnormal finding on urinalys is R82.90 [place] [address] [place] [id number] [address] [place] [address] Feb, [facility] [address] [facility] [id number] [address] [place] [address] Feb, Shortness of breath R06.02 ; Tachycardia R00.0 ; Cough R05 ; Ill feeling R68.89 and Abnormal finding on urinalysis R82.90 [place] [id number] [facility] [id number] [address] [place] [address] Feb, Anxiety F41.9 [facility] [address] [facility] [id number] [address] [place] [address] Feb, Sore throat J02.9 and Acute diffuse otitis externa of left ear H60.312 [place] [address] [facility] [id number] [address] [place] [phone] Jan, [facility] [address] [facility] [id number] [address] [place] [id number] Jan, [facility] [address] [id number] [facility] [place] [place] [id number] Jan, [facility] [address] [facility] [id number] [address] [place] [address] Jan, Depression, unspecified depr ession type F32.9 ; Chronic bronchitis, unspecified chronic bronchitis type J42 ; Chronic pain syndrome G89.[address] [facility] [address] [facility] [id number] [address] [place] [address] Jan, [facility] [address] [facility] [id number] [address] [place] [id number] Jan, [facility] [address] [facility] [id number] [address] [place] [phone] Jan, [facility] [address] [id number] [facility] [id number] Jan, Chronic pain syndrome G89.4 [employer] [address] [place] [id number] Dec History of right knee surgery Z98.890 [facility] [address] [facility] [id number] [address] [place] [phone] Dec, [facility] [address] [facility] [id number] [address] [place] [id number] Dec, Chronic pain syndrome G89.4 [facility] [address] [facility] [id number] [address] [place] [phone] November, Anxiety F41.9 [facility] [address] [facility] [id number] [address] [place] [id number] November, Acute cystitis without hemat uria N30.00 [facility] [address] [facility] [id number] [address] [place] [phone] November, Fever, unspecified fever cau se R50.9 and Acute cystitis without hematuria N30.00 [place] [address] [facility] [id number] [address] [place] [phone] November, Chronic pain syndrome G89.4 [place] [id number] [facility] [id number] [address] [place] [phone] Oct, Anxiety F41.9 [place] [address] [facility] [id number] [address] [place] [phone] Oct, Chronic pain syndrome G89.4 [place] [address] [facility] [id number] [address] [place] [phone] Oct, Chronic pain syndrome G89.4 [place] [address] [place] [id number] [address] [place] [phone] Oct, [place] [id number] [place] [phone] Oct, Chronic pain syndrome G89.4 ; Pain in right knee M25.561 ; History of Clostridium difficile Z87.19 ; Iron deficiency anemia, unspecified iron deficiency anemia type D50.9 ; Peripheral vascular disease, unspecified I73.9 and Atrial fibrillation I48.91 [place] [address] [address] [place] [id number] [address] [place] [id number] Oct, [place] [address] [address] [facility] [id number] [address] [place] [id number] Oct, Chronic pain syndrome G89.4 [place] [address] [address] [facility] [id number] [address] [place] [phone] Sep, [place] [address] [address] [facility] [id number] [address] [place] [id number] Sep, Depression, unspecified depr ession type F32.9 ; Chronic bronchitis, unspecified chronic bronchitis type J42 ; Chronic pain syndrome G89.4 and Anxiety F41.9 [employer] [address] [place] [id number] Sep History of Clostridium difficile infection Z86.19 and History of stroke Z86.73 [facility] [address] [id number] [place] [id number] Sep, Anxiety F41.9 [facility] [address] [id number] [address] [place] [phone] Sep, Chronic pain syndrome G89.4 [facility] [address] [id number] [address] [place] [id number] Sep, [facility] [address] [id number] [place] [id number] Sep, [facility] [address] [id number] [address] [place] [id number] Aug, Anxiety F41.9 [facility] [address] [id number] [address] [place] [phone] Aug, Anxiety F41.9 [facility] [address] [id number] [address] [place] [id number] 16 Aug, 2016 [facility] [address] [id number] [address] [place] [id number] 14 Aug, 2016 Acute knee pain, unspecified laterality M25.569 [facility] [address] [id number] [address] [place] [id number] 13 Aug, 2016 [facility] [address] [id number] [address] [place] [id number] 09 Aug, 2016 Chronic pain syndrome G89.4 [facility] [address] [id number] [address] [place] [id number] 08 Aug, 2016 [facility] [address] [id number] [address] [place] [phone] Aug, [facility] [address] [id number] [address] [place] [id number] Jul, [facility] [address] [facility] [id number] [address] [place] [id number] Jul, Anxiety F41.9 [facility] [address] [id number] [address] [place] [id number] Jul, Clostridium difficile diarrh ea A04.7 [employer] [address] [place] [id number] Jul Clostridium difficile diarrhea A04.7 ; Chronic pain syndrome G89.4 ; Chronic obstructive pulmon disease w acute lower resp infct J44.0 and Pain in right knee M25.561 [facility] [address] [id number] [place] [id number] Jul, [facility] [address] [id number] [address] [place] [id number] Jul, Anxiety F41.9 and Chronic pa in syndrome G89.4 [facility] [address] [id number] [address] [place] [id number] Jun, Anxiety F41.9 [facility] [address] [id number] [address] [place] [id number] Jun, Rheumatoid arthritis 714.0 [facility] [address] [id number] [address] [place] [phone] Jun, Chronic pain syndrome G89.4 [facility] [address] [id number] [address] [place] [id number] Jun, [facility] [address] [id number] [address] [place] [phone] Jun, [facility] [address] [id number] [address] [place] [id number] Jun, History of pneumonia Z87.01 and History of Clostridium difficile Z87.19 [facility] [address] [id number] [address] [place] [phone] Jun, [facility] [address] [id number] [address] [place] [phone] May, [facility] [address] [id number] [address] [place] [id number] May, Anxiety F41.9 [facility] [address] [id number] [address] [place] [address] May, Chronic pain syndrome G89.4 [facility] [address] [id number] [address] [place] [phone] May, Chronic bronchitis, unspecif ied chronic bronchitis type J42 [facility] [address] [id number] [address] [place] [id number] May, [facility] [address] [facility] [id number] [address] [place] [address] May, C. difficile diarrhea A04.7 ; Peripheral edema R60.9 ; COPD (chronic obstructive pulmonary disease) J44.9 ; Rheumatoid arthritis, involving unspecified site, unspecified rheumatoid factor presence M06.9 ; Pain in right knee M25.561 ; Pain in left knee M25.562 and Other chronic pain G89.29 [facility] [address] [id number] [address] [place] [id number] May, [facility] [address] [id number] [address] [place] [id number] May, [facility] [address] [facility] [id number] [address] [place] [id number] May, Anxiety F41.9 [facility] [address] [id number] [address] [place] [id number] Apr, [facility] [address] [id number] [address] [place] [id number] Apr, Chronic pain syndrome G89.4 [facility] [address] [id number] [address] [place] [id number] Apr, Leg pain, left M79.605 [facility] [address] [id number] [address] [place] [id number] Apr, [facility] [address] [facility] [id number] [address] [place] [phone] Apr, [facility] [address] [facility] [id number] [address] [place] [id number] Apr, [place] [address] [facility] [id number] [address] [place] [address] Mar, Chronic pain syndrome G89.4 [place] [address] [facility] [id number] [address] [place] [id number] Mar, Acute frontal sinusitis, rec urrence not specified J01.10 [place] [address] [facility] [id number] [address] [place] [id number] Mar, Iron deficiency anemia, unsp ecified iron deficiency anemia type D50.9 ; Rheumatoid arthritis with positive rheumatoid factor, involving unspecified site M05.9 and Depression, unspecified depression type F32.9 [place] [address] [facility] [id number] [address] [place] [id number] Mar, Iron deficiency anemia, unsp ecified iron deficiency anemia type D50.9 ; Depression, unspecified depression type F32.9 and Rheumatoid arthritis with positive rheumatoid factor, involving unspecified site M05.9 [place] [address] [facility] [id number] [address] [place] [phone] Mar, [place] [address] [facility] [id number] [address] [place] [phone] Mar, [place] [address] [facility] [id number] [address] [place] [phone] Feb, Chronic pain syndrome G89.4 [place] [address] [facility] [id number] [address] [place] [address] Feb, Status post partial amputati on of left foot Z89.432 ; Status post CVA Z86.73 ; Hemiplegia G81.90 and Anemia, unspecified type D64.9 [place] [id number] [facility] [id number] [address] [place] [phone] Feb, [place] [address] [facility] [id number] [address] [place] [phone] Feb, Anemia, unspecified type D64 .9 [facility] [address] [facility] [id number] [address] [place] [id number] Feb, [facility] [address] [facility] [id number] [address] [place] [id number] Feb, Iron deficiency anemia, unsp ecified iron deficiency anemia type D50.9 [facility] [address] [facility] [id number] [address] [place] [phone] Feb, [facility] [address] [facility] [id number] [address] [place] [id number] Feb, Chronic bronchitis, unspecif ied chronic bronchitis type J42 [place] [address] [facility] [id number] [address] [place] [id number] Feb, Iron deficiency anemia, unsp ecified iron deficiency anemia type D50.9 [facility] [address] [facility] [id number] [address] [place] [id number] Feb, Chronic pain syndrome G89.4 [place] [address] [facility] [id number] [address] [place] [id number] Feb, Anemia, unspecified type D64 [address] [facility] [address] [facility] [id number] [address] [place] [id number] Feb, Anemia, unspecified type D64 .9 [facility] [address] [facility] [id number] [address] [place] [phone] Jan, [facility] [address] [facility] [id number] [address] [place] [id number] Jan, Anemia, unspecified type D64 .9 [facility] [address] [facility] [id number] [address] [place] [phone] Jan, [facility] [address] [facility] [id number] [address] [place] [address] Jan, Anemia, unspecified type D64 .9 [facility] [address] [id number] [address] [place] [phone] Jan, Anemia, unspecified type D64 .9 [facility] [address] [id number] [address] [place] [phone] Jan, [facility] [address] [facility] [id number] [address] [place] [id number] Jan, Anemia, unspecified type D64 .9 [facility] [address] [id number] [address] [place] [phone] Jan, [facility] [address] [facility] [id number] [address] [place] [id number] Jan, [facility] [address] [facility] [id number] [address] [place] [phone] Jan, Chronic pain syndrome G89.4 [facility] [address] [facility] [id number] [address] [place] [id number] Jan, Anemia, unspecified type D64 .9 [facility] [address] [facility] [id number] [address] [place] [id number] Jan, Dysthymia F34.1 ; Cervicalgi a M54.2 ; Fatigue, unspecified type R53.83 and Depression, unspecified depression type F32.9 [facility] [address] [facility] [id number] [address] [place] [id number] Dec, [facility] [address] [facility] [id number] [address] [place] [phone] Dec, Anxiety F41.9 [facility] [address] [facility] [id number] [address] [place] [id number] Dec, Chronic pain syndrome G89.4 [facility] [address] [facility] [id number] [address] [place] [id number] November, [facility] [address] [facility] [id number] [address] [place] [id number] November, Edema R60.[address]4 2 [facility] [address] [id number] [address] [place] [id number] November, [facility] [address] [facility] [id number] [address] [place] [phone] November, [facility] [address] [facility] [id number] [address] [place] [phone] November, COPD (chronic obstructive pu lmonary disease) J44.9 ; Increased tracheal secretions J39.[address] [facility] [address] [facility] [id number] [address] [place] [phone] Oct, [facility] [address] [facility] [id number] [address] [place] [phone] Oct, Shortness of breath R06.02 [address] Edema R60.9 [facility] [address] [facility] [id number] [address] [place] [address] Oct, Chronic bronchitis, unspecif ied chronic bronchitis type J42 ; Peripheral vascular disease, unspecified I73.9 ; Rheumatoid arthritis M06.[address].91 [facility] [address] [facility] [id number] [address] [place] [id number] Oct, [facility] [address] [facility] [id number] [address] [place] [id number] Oct, [facility] [address] [facility] [id number] [address] [place] [phone] Oct, [facility] [address] [facility] [id number] [address] [place] [id number] Oct, [facility] [address] [facility] [id number] [address] [place] [id number] Oct, COPD exacerbation J44.1 [facility] [address] [facility] [id number] [address] [place] [id number] Sep, [facility] [id number] [place] [id number] Sep, [facility] [address] [id number] [address] [place] [id number] Sep, [facility] [address] [facility] [id number] [address] [place] [id number] Aug, [facility] [address] [facility] [id number] [address] [place] [id number] Aug, 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 and P VD (peripheral vascular disease) I73.9 [facility] [address] [id number] [address] [place] [address] Aug, Bronchitis J40 ; COPD (chron ic obstructive pulmonary disease) J44.[address] [facility] [address] [facility] [id number] [address] [place] [phone] Aug, [facility] [address] [facility] [id number] [address] [place] [phone] Jul, [facility] [address] [facility] [id number] [address] [place] [id number] Jul, [facility] [address] [facility] [id number] [address] [place] [id number] Jul, [facility] [address] [facility] [id number] [address] [place] [phone] Jun, [facility] [address] [facility] [id number] [address] [place] [phone] Jun, [facility] [address] [facility] [id number] [address] [place] [id number] Jun, Peripheral vascular disease I73.9 [facility] [address] [facility] [id number] [address] [place] [id number] Jun, [facility] [address] [facility] [id number] [address] [place] [id number] Jun, 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 [address] [id number] [address] [place] [address] May, [facility] [address] [id number] [address] [place] [id number] May, [facility] [address] [id number] [address] [place] [id number] May, [facility] [address] [id number] [address] [place] [phone] May, [facility] [address] [id number] [address] [place] [phone] May, [facility] [address] [id number] [address] [place] [id number] Apr, [facility] [address] [facility] [id number] [address] [place] [id number] Apr, [facility] [address] [facility] [id number] [address] [place] [id number] Mar, [facility] [address] [facility] [id number] [address] [place] [phone] Mar, [facility] [address] [id number] [address] [place] [id number] Feb, [facility] [address] [facility] [id number] [address] [place] [id number] Feb, Nicotine abuse 305.1 ; Arthr algia 719.40 and 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 [facility] [address] [id number] [address] [place] [phone] Feb, [facility] [address] [id number] [address] [place] [id number] Jan, 2014 [facility] [address] [id number] [address] [place] [id number] Jan, 2014 [facility] [address] [id number] [address] [place] [id number] [address], 2014 [facility] [address] [id number] [address] [place] [id number] Jan, 2014 [facility] [address] [id number] [address] [place] [id number] Jan, 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 ; Rhe umatoid arthritis 714.0 ; Hypertension 401.9 ; GERD (gastroesophageal reflux disease) 530.81 ; Nicotine addiction 305.[address] [facility] [address] [id number] [address] [place] [id number] Jan, 2014 [facility] [address] [id number] [address] [place] [phone] Jan, 2014 [facility] [address] [facility] [id number] [address] [place] [id number] Jan, [facility] [address] [id number] [address] [place] [phone] Jan, [facility] [address] [facility] [id number] [address] [place] [phone] Jan, [facility] [address] [id number] [address] [place] [id number] Dec, [facility] [address] [id number] [address] [place] [id number] Dec, [facility] [address] [id number] [address] [place] [id number] Dec, [facility] [address] [id number] [address] [place] [id number] Dec, [facility] [address] [id number] [address] [place] [id number] November, [facility] [address] [facility] [id number] [address] [place] [id number] November, [facility] [address] [facility] [id number] [address] [place] [id number] November, Shortness of breath 786.05 [facility] [address] [id number] [address] [place] [id number] November, Rheumatoid arthritis 714.0 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 [id number] [place] [phone] November, Neuropathy 355.9 ; Insomnia 780.52 ; Dysthymia 300.4 ; Shortness of breath 786.05 ; Rheumatoid arthritis 714.[address] [facility] [address] [id number] [address] [place] [id number] November, [facility] [address] [place] [id number] [address] [place] [phone] November, [facility] [address] [place] [id number] [address] [place] [id number] Oct, [facility] [address] [id number] [address] [place] [id number] Oct, [facility] [address] [id number] [address] [place] [id number] Oct, [facility] [address] [facility] [id number] [address] [place] [id number] Oct, [facility] [address] [id number] [address] [place] [id number] Sep, [facility] [address] [id number] [address] [place] [id number] Sep, [facility] [address] [id number] [address] [place] [id number] Sep, [facility] [address] [id number] [address] [place] [address], [place] [address] Sep, [facility] [address] [id number] [address] [place] [address], [place] [address] Sep, [facility] [address] [id number] [address] [place] [address], [place] [address] Sep, [facility] [address] [id number] [address] [place] [address], [place] [address] Sep, [facility] [address] [id number] [address] [place] [address], [place] [address] Sep, [facility] [address] [id number] [address] [place] [address], [place] [address] Aug, [facility] [address] [id number] [address] [place] [address], [place] [address] Aug, [facility] [address] [id number] [address] [place] [address], [place] [address] Aug, [facility] [address] [id number] [address] [place] [address], [place] [address] Aug, [facility] [address] [id number] [address] [place] [address], [place] [address] Aug, [facility] [address] [id number] [address] [place] [address], [place] [address] Aug, [facility] [address] [id number] [address] [place] [address], [place] [address] Jul, [facility] [address] [id number] [address] [place] [address], [place] [address] Jul, [facility] [address] [id number] [address] [place] [address], [place] [address] Jul, [facility] [address] [id number] [address] [place] [address], [place] [address] Jul, [facility] [address] [id number] [address] [place] [address], [place] [address] Jul, [facility] [address] [id number] [address] [place] [address], [place] [address] Jul, [facility] [address] [id number] [address] [place] [address], [place] [address] Jul, [facility] [address] [id number] [address] [place] [address], [place] [address] Jul, [facility] [address] [id number] [address] [place] [address], [place] [address] Jul, [facility] [address] [id number] [address] [place] [address], [place] [address] Jul, [facility] [address] [id number] [address] [place] [address], [place] [address] Jun, [facility] [address] [id number] [address] [place] [address], [place] [address] Jun, [facility] [address] [id number] [address] [place] [address], [place] [address] Jun, [facility] [address] [id number] [address] [place] [address], [place] [address] Jun, [facility] [address] [id number] [address] [place] [address], [place] [address] Jun, [facility] [address] [id number] [address] [place] [address], [place] [address] Jun, [facility] [address] [id number] [address] [place] [address], [place] [address] Jun, [facility] [address] [id number] [address] [place] [address], [place] [address] Jun, [facility] [address] [id number] [address] [place] [address], [place] [address] Jun, [facility] [address] [id number] [address] [place] [id number] Jun, [facility] [address] [id number] [address] [place] [address], [place] [address] Jun, [facility] [address] [id number] [address] [place] [address], [place] [address] Jun, [facility] [address] [id number] [address] [place] [address], [place] [address] Jun, [facility] [address] [id number] [address] [place] [address], [place] [address] Jun, [facility] [address] [id number] [address] [place] [address], [place] [address] Jun, [facility] [address] [id number] [address] [place] [address], [place] [address] Jun, [facility] [address] [id number] [address] [place] [address], [place] [address] May, [facility] [address] [id number] [address] [place] [address], [place] [address] May, [facility] [address] [id number] [address] [place] [address], [place] [address] May, [facility] [address] [id number] [address] [place] [address], [place] [address] May, [facility] [address] [id number] [address] [place] [address], [place] [address] May, [facility] [address] [id number] [address] [place] [address] May, [facility] [address] [id number] [address] [place] [address], [place] [address] May, [facility] [address] [id number] [address] [place] [address], [place] [address] May, [facility] [address] [id number] [address] [place] [address], [place] [address] May, [facility] [address] [id number] [address] [place] [address], [place] [address] Apr, [facility] [address] [id number] [address] [place] [address], [place] [address] Apr, [facility] [address] [id number] [address] [place] [address], [place] [address] Apr, [facility] [address] [id number] [address] [place] [address], [place] [address] Apr, 2013 [facility] [address] [id number] [address] [place] [address], [place] [address] Apr, [facility] [address] [id number] [address] [place] [address], [place] [address] Apr, [facility] [address] [id number] [address] [place] [address], [place] [address] Apr, [facility] [address] [id number] [address] [place] [address], [place] [address] Apr, 2013 [facility] [address] [id number] [address] [place] [address], [place] [address] Apr, [facility] [address] [id number] [address] [place] [address], [place] [address] Apr, [facility] [address] [id number] [address] [place] [address], [place] [address] Apr, [facility] [address] [id number] [address] [place] [address], [place] [address] Apr, [facility] [address] [id number] [address] [place] [address], [place] [address] Mar, [facility] [address] [id number] [address] [place] [address], [place] [address] Mar, [facility] [address] [id number] [address] [place] [address], [place] [address] Mar, [facility] [address] [id number] [address] [place] [address], [place] [address] Mar, [facility] [address] [id number] [facility] [place] [address] Mar, 2013 [facility] [address] [id number] [facility] [place] [address] Mar, [facility] [address] [id number] [address] [place] [address], [place] [address] Mar, [facility] [address] [id number] [address] [place] [address], [place] [address] Mar, [facility] [address] [id number] [address] [place] [address], [place] [address] Mar, [facility] [address] [id number] [address] [place] [address], [place] [address] Mar, [facility] [address] [id number] [address] [place] [address], [place] [address] Feb, [facility] [address] [id number] [address] [place] [address], [place] [address] Feb, [facility] [address] [id number] [address] [place] [address], [place] [address] Feb, [facility] [address] [id number] [address] [place] [address], [place] [address] Feb, [facility] [address] [id number] [address] [place] [address], [place] [address] Feb, [facility] [address] [id number] [address] [place] [address], [place] [address] Feb, [facility] [address] [id number] [address] [place] [address], [place] [address] Feb, [facility] [address] [id number] [address] [place] [address], [place] [address] Feb, [facility] [address] [id number] [address] [place] [address], [place] [address] Feb, [facility] [address] [id number] [address] [place] [address], [place] [address] Feb, [facility] [address] [id number] [facility] [place] [address] Feb, [facility] [address] [id number] [address] [place] [address], [place] [address] Feb, [facility] [address] [id number] [address] [place] [address], [place] [address] Feb, [facility] [address] [id number] [address] [place] [address], [place] [address] Feb, [facility] [address] [id number] [address] [place] [address], [place] [address] Feb, [facility] [address] [id number] [address] [place] [address], [place] [address] Feb, [facility] [address] [id number] [address] [place] [address], [place] [address] Jan, [facility] [address] [id number] [address] [place] [address], [place] [address] Jan, [facility] [address] [id number] [address] [place] [address], [place] [address] Jan, [facility] [address] [id number] [address] [place] [address], [place] [address] Jan, [facility] [address] [id number] [address] [place] [address], [place] [address] Jan, [facility] [address] [id number] [address] [place] [address], [place] [address] Jan, [facility] [address] [id number] [address] [place] [address], [place] [address] Dec, [facility] [address] [id number] [address] [place] [address], [place] [address] Dec, [facility] [address] [id number] [address] [place] [address], [place] [address] Dec, [facility] [address] [id number] [facility] [place] [address] Dec, [facility] [address] [id number] [facility] [place] [address] Dec, [facility] [address] [id number] [facility] [place] [address] Dec, [facility] [address] [id number] [address] [place] [address], [place] [address] Dec, [facility] [address] [id number] [address] [place] [address], [place] [address] Dec, [facility] [address] [id number] [address] [place] [address], [place] [address] November, [facility] [address] [id number] [address] [place] [address], [place] [address] November, [facility] [address] [id number] [address] [place] [address], [place] [address] November, [facility] [address] [id number] [address] [place] [address], [place] [address] November, [facility] [address] [id number] [address] [place] [address], [place] [address] November, [facility] [address] [id number] [address] [place] [address], [place] [address] November, [facility] [address] [id number] [address] [place] [address], [place] [address] Oct, [facility] [address] [id number] [address] [place] [address], [place] [address] Oct, [facility] [address] [id number] [address] [place] [address], [place] [address] Oct, [facility] [address] [id number] [address] [place] [address], [place] [address] Oct, [facility] [address] [id number] [address] [place] [address], [place] [address] Sep, [facility] [address] [id number] [facility] [place] [address] Sep, [facility] [address] [id number] [address] [place] [address], [place] [address] Sep, [facility] [address] [id number] [address] [place] [address], [place] [address] Sep, [facility] [address] [id number] [address] [place] [address], [place] [address] Sep, [facility] [address] [id number] [address] [place] [address], [place] [address] Sep, [facility] [address] [id number] [address] [place] [address], [place] [address] Aug, [facility] [address] [id number] [address] [place] [address], [place] [address] Aug, [facility] [address] [id number] [address] [place] [address], [place] [address] Aug, [facility] [address] [id number] [address] [place] [address], [place] [address] Aug, [facility] [address] [id number] [address] [place] [address], [place] [address] Aug, [facility] [address] [id number] [address] [place] [address], [place] [address] Aug, [facility] [address] [id number] [address] [place] [address], [place] [address] Jul, [facility] [address] [id number] [address] [place] [address], [place] [address] Jul, [facility] [address] [id number] [address] [place] [address], [place] [address] Jul, [facility] [address] [id number] [address] [place] [address], [place] [address] Jul, [facility] [address] [id number] [address] [place] [address], [place] [address] Jul, [facility] [address] [id number] [address] [place] [address], [place] [address] Jul, [facility] [address] [id number] [address] [place] [address], [place] [address] Jul, [facility] [address] [id number] [address] [place] [address], [place] [address] Jul, [facility] [address] [id number] [address] [place] [address], [place] [address] Jul, [facility] [address] [id number] [address] [place] [address], [place] [address] Jul, [facility] [address] [id number] [address] [place] [address], [place] [address] Jul, [facility] [address] [id number] [address] [place] [address], [place] [address] Jul, [facility] [address] [id number] [address] [place] [address], [place] [address] Jul, [facility] [address] [id number] [address] [place] [address], [place] [address] Jul, [facility] [address] [id number] [address] [place] [address], [place] [address] Jul, [facility] [address] [id number] [address] [place] [address], [place] [address] Jun, [facility] [address] [id number] [address] [place] [address], [place] [address] Jun, [facility] [address] [id number] [address] [place] [address], [place] [address] Jun, [facility] [address] [id number] [address] [place] [address], [place] [address] Jun, [facility] [address] [id number] [address] [place] [address] [address] May, [facility] [address] [id number] [address] [place] [address] May, [facility] [address] [id number] [place] [id number] May, [facility] [address] [id number] [address] [place] [address] May, [facility] [address] [id number] [address] [place] [id number] May, [facility] [address] [id number] [address] [place] [id number] May, [facility] [address] [id number] [address] [place] [id number] May, [facility] [address] [facility] [id number] [address] [place] [id number] May, [facility] [address] [id number] [address] [place] [id number] May, [facility] [address] [id number] [place] [id number] May, [facility] [address] [id number] [address] [place] [id number] May, [facility] [address] [id number] [place] [id number] May, [facility] [address] [id number] [address] [place] [address] May, [facility] [address] [id number] [place] [id number] May, [facility] [address] [id number] [address] [place] [id number] May, IMMUNIZATIONS No Known Immunizations SOCIAL HISTORY Never Assessed REASON FOR VISIT PLAN OF CARE VITAL SIGNS Height 63 in 2013-08-01 Weight 143.2 lbs 2013-08-01 Temperature 98 degrees Fahrenheit 2013-08-01 Heart Rate 78 bpm 2013-08-01 Respiratory Rate 20 2013-08-01 Blood pressure systolic 118 mmHg 2013-08-01 Blood pressure diastolic 70 mmHg 2013-08-01 MEDICATIONS Unknown Medications RESULTS No Results PROCEDURES No Known procedures INSTRUCTIONS MEDICATIONS ADMINISTERED No Known Medications MEDICAL (GENERAL) HISTORY Type Description Date Medical History Arthritis Medical History peripheral vascular disease Medical History tachycardia (PSVT) Electrophysiology st udies done 01/2018 Medical History chronic obstructive pulmonar y [...] leukocytosis--[facility] 01/08/16 Hospitalization History pseudomemranous colitis, sepsis--[facility] 04/21/2016 Hospitalization History C Diff--[facility] 05/10/2016 Hospitalization History sepsis, pneumonia, diarrhea--[facility] Hospitalization History recurrent cdiff, pneumonia-[facility] Hospitalization History sepsis,pneumonia- [facility] 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
--- OUTSIDE RECORDS SUMMARY | 2019-11-07 10:15 | XMS REPORT ---
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 875698384 Problem COPD (chronic obstructive pulmonary disease) J44.9 Active 56183267 Problem Hypertension I10 Active 0003380 3 Problem Primary insomnia F51.01 Active 397 2004 Problem Hx of Clostridium difficile infection Z86.19 Active 760906052 Problem Chronic obstructive pulmon disease w acute lower resp infc t J44.0 Active 507725727 Problem History of arthroplasty of right knee Z96.651 Active 924553354 Problem Leg pain, left M79.605 Active 86590 7008 Problem Status post partial amputation of left foot Z89.43 2 Active 330332403 Problem Edema R60.9 Active 812383391 Problem Tobacco abuse, 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 Ac tive 565911587 Problem Anxiety F41.9 Active 72233824 Problem Chronic pain syndrome G89.4 Active 815879300 Problem Anemia, unspecified type D64.9 Activ e 797176141 Problem Depression, unspecified depression type F32.9 Active 86605033 Problem Other chronic pain G89.29 Active 8 2323456 Problem Iron deficiency anemia, unspecified iron deficiency an emia type D50.9 Active 69562932 Problem Insomnia, unspecified G47.00 Active 743167522 Problem Seasonal allergic rhinitis due to pollen J30.1 Active 79359417 Problem History of oral cancer Z85.819 Active 361886819 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 36 7206444 Problem Atrial fibrillation I48.91 Active 17654234 Problem Chronic obstructive pulmonary disease with (acute) exa cerbation J44.1 Active 678075969 Problem Rheumatoid arthritis M06.9 Active 53894812 Problem Dysthymia F34.1 Active 21599576 Problem Neuropathy G62.9 Active 932005393 Problem Rheumatoid arthritis with po sitive rheumatoid factor, involving unspecified site M05.9 Active 33846570 Problem Hemiplegia and hemiparesis f ollowing cerebral infarction affecting right dominant side I69.351 Active 137730399 Problem Cancer of neck C76.0 Active 77121 9000 ALLERGIES No Information ENCOUNTERS Encounter Location Date Diagnosis [place] [address] [address] November, [place] [address] [address] Sep, [place] [address] [address] 28 Aug, 2019 Chronic pain syndrome G89.4 [place] [address] [place] [address] 19 Aug, 2019 Chronic obstructive pulmonar y disease with (acute) exacerbation J44.1 [place] [address] [address] 12 Aug, 2019 Single subsegmental pulmonary embolism w ithout acute cor pulmonale I26.93 ; Rheumatoid arthritis with positive rheumatoid factor, involving unspecified site M05.9 ; Chronic pain syndrome G89.4 ; Leg pain, left M79.605 and 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 [place] [address] [address] Aug, [place] [address] [address] 11 Aug, 2019 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 [place] [address] [address] 07 Aug, 2019 Chronic pain syndrome G89.4 [facility] [address] [place] [address] [id number] [place] [address] Jul, Primary insomnia F51.01 [facility] [address] [id number] [place] [address] Jul, Chronic pain syndrome G89.4 [facility] [id number] [place] [address] Jul, [facility] [address] [address] Jul, [facility] [address] [address] Jul, Rheumatoid arthritis with positive rheum atoid factor, involving unspecified site M05.9 and Chronic pain syndrome G89.4 [facility] [address] [place] [id number] [place] [address] Jul, [facility] [address] [address] Jun, Rheumatoid arthritis with positive rheum atoid factor, involving unspecified site M05.9 [place] [address] [address] Jun, Chronic pain syndrome G89.4 ; Rheumatoid arthritis with positive rheumatoid factor, involving unspecified site M05.9 and Anxiety F41.9 [facility] [address] [id number] [place] [address] Jun, [facility] [address] [address] Jun, Hemorrhoids, unspecified hemorrhoid type K64.9 [facility] [address] [address] Jun, Hemorrhoids, unspecified hemorrhoid type K64.9 ; Cancer of neck C76.0 and Drug-induced constipation K59.03 [facility] [id number] [place] [address] Jun, [facility] [address] [place] [address] [id number] [place] [address] Jun, [facility] [address] [address] Jun, Rheumatoid arthritis with positive rheum atoid factor, involving unspecified site M05.9 [facility] [address] [place] [address] [id number] [place] [address] May, [facility] [address] [address] May, Rheumatoid arthritis with positive rheum atoid factor, involving unspecified site M05.9 [place] [address] [address] Apr, Primary insomnia F51.01 [place] [address] [address] Apr, Rheumatoid arthritis with positive rheum atoid factor, involving unspecified site M05.9 [place] [address] [address] Mar, [facility] [address] [address] Mar, [place] [address] [address] Mar, Rheumatoid arthritis with positive rheum atoid factor, involving unspecified site M05.9 ; Atrial fibrillation I48.91 ; Chronic pain syndrome G89.4 ; Iron deficiency anemia, unspecified iron deficiency anemia type D50.9 and Hemiplegia and hemiparesis following cerebral infarction affecting right dominant side I69.351 [place] [address] [address] Mar, Chronic pain syndrome G89.4 and Primary insomnia F51.01 [facility] [address] [address] Mar, Rheumatoid arthritis with positive rheum atoid factor, involving unspecified site M05.9 [place] [address] [address] Feb, Rheumatoid arthritis with positive rheum atoid factor, involving unspecified site M05.9 ; Chronic pain syndrome G89.4 ; Atrial fibrillation I48.91 ; Iron deficiency anemia, unspecified iron deficiency anemia type D50.9 ; Hemiplegia and hemiparesis following cerebral infarction affecting right dominant side I69.351 and Primary insomnia F51.01 [facility] [address] [address] Feb, Chronic pain syndrome G89.4 [facility] [address] [address] Jan, Chronic pain syndrome G89.4 [facility] [address] [address] Jan, [facility] [address] [address] Jan, [facility] [address] [address] Dec, [facility] [address] [address] Dec, Chronic pain syndrome G89.4 [facility] [address] [address] Dec, [facility] [address] [address] November, Chronic pain syndrome G89.4 [facility] [address] [address] Oct, Chronic pain syndrome G89.4 [facility] [address] [address] Oct, [facility] [address] [address] Sep, Chronic pain syndrome G89.4 [facility] [address] [address] Sep, Leg pain, left M79.605 ; Right leg pain M79.604 and Reactive cervical nodes R59.0 [facility] [address] [id number] [place] [address] 14 Sep, 2018 [facility] [address] [address] Sep, Neuropathy G62.9 [facility] [address] [facility] [place] [id number] Sep, [facility] [address] [place] [id number] [place] [address] Sep, Lymphadenopathy of left cervical region R59.0 [facility] [address] [address] Sep, Lymphadenopathy of left cervical region R59.0 and Neuropathy G62.9 [facility] [address] [id number] [place] [address] Aug, Chronic pain syndrome G89.4 [facility] [address] [place] [id number] [place] [address] Aug, [facility] [address] [address] 04 Aug, 2018 Peripheral vascular disease, unspecified I73.9 ; Other chronic pain G89.29 ; Chronic obstructive pulmon disease w acute lower resp infct J44.0 and Primary insomnia F51.01 [facility] [address] [address] Aug, Chronic pain syndrome G89.4 [facility] [address] [place] [address] [id number] [place] [address] Jul, Chronic pain syndrome G89.4 [facility] [address] [address] Jun, Chronic pain syndrome G89.4 [facility] [address] [place] [id number] [place] [address] May, Chronic pain syndrome G89.4 [facility] [address] [facility] [id number] [address] [place] [address] Apr, Cough R05 and Viral illness B34.9 [facility] [id number] [place] [address] Apr, Encounter for immunization Z23 [facility] [id number] [place] [address] 16 Apr, 2018 Chronic pain syndrome G89.4 [facility] [address] [facility] [id number] [address] [place] [address] Apr, Left acute otitis media H66. 92 [facility] [address] [address] [id number] [place] [address] Mar, Rheumatoid arthritis M06.9 ; Other chron ic pain G89.29 ; History of oral cancer Z85.819 and History of tachycardia Z87.898 [place] [address] [address] Mar, Chronic pain syndrome G89.4 [facility] [address] [address] Feb, Chronic pain syndrome G89.4 [facility] [address] [address] Feb, Chronic pain syndrome G89.4 [facility] [address] [address] Jan, Chronic pain syndrome G89.4 [place] [address] [address] Jan, [facility] [address] [address] Dec, Chronic pain syndrome G89.4 [facility] [address] [address] November, Chronic pain syndrome G89.4 [facility] [address] [address] November, [facility] [address] [address] Oct, Chronic pain syndrome G89.4 [facility] [address] [address] Oct, [facility] [address] [address] Oct, Chronic pain syndrome G89.4 [facility] [address] [address] Oct, [facility] [address] [address] Oct, [facility] [address] [address] Sep, Left upper quadrant pain R10.12 ; Chroni c pain syndrome G89.4 ; Left lower quadrant pain R10.32 ; Other chronic pain G89.29 ; Sacrococcygeal disorders, not elsewhere classified M53.3 and Seasonal allergic rhinitis due to pollen J30.1 [facility] [address] [address] Sep, Chronic pain syndrome G89.4 [facility] [address] [address] Sep, [facility] [address] [address] Aug, Chronic pain syndrome G89.4 [facility] [address] [address] Aug, [facility] [address] [address] Aug, Insomnia, unspecified G47.00 [facility] [address] [address] Jul, [facility] [address] [address] Jul, [facility] [address] [address] Jul, Chronic pain syndrome G89.4 [place] [id number] [address] Jun, Chronic pain syndrome G89.4 [facility] [address] [address] Jun, Chronic pain syndrome G89.4 [facility] [address] [address] May, [place] [address] [address] May, Shortness of breath R06.02 ; Peripheral vascular disease, unspecified I73.9 ; Pain in right knee M25.561 ; Other chronic pain G89.29 ; Chest wall pain R07.89 ; Chronic pain syndrome G89.4 ; Primary insomnia F51.01 and Ear pain, left H92.02 [place] [address] [address] May, Anxiety F41.9 [place] [address] [address] Apr, Pneumonia due to infectious organism, un specified laterality, unspecified part of lung J18.9 ; Hypoxia R09.02 ; Bradycardia R00.1 ; History of Clostridium difficile Z87.19 and Primary insomnia F51.01 [place] [address] [address] Apr, Anxiety F41.9 [place] [address] [address] Apr, [place] [address] [address] Mar, Anxiety F41.9 [place] [address] [address] Feb, [place] [address] [address] Feb, [place] [address] [address] Feb, Abnormal finding on urinalysis R82.90 [facility] [address] [address] Feb, [place] [address] [address] Feb, Shortness of breath R06.02 ; Tachycardia R00.0 ; Cough R05 ; Ill feeling R68.89 and Abnormal finding on urinalysis R82.90 [place] [address] [address] Feb, Anxiety F41.[address] [facility] [address] [facility] [id number] [address] [address] Feb, Sore throat J02.9 and Acute diffuse otitis externa of left ear H60.312 [place] [address] [address] Jan, [place] [address] [address] Jan, [place] [address] [id number] [id number] Jan, [place] [address] [address] Jan, Depression, unspecified depression type F32.9 ; Chronic bronchitis, unspecified chronic bronchitis type J42 ; Chronic pain syndrome G89.4 and Anxiety F41.9 [facility] [address] [address] Jan, [place] [address] [address] Jan, [place] [address] [address] Jan, [place] [address] [place] [id number] [place] [id number] Jan, Chronic pain syndrome G89.4 [facility] [address] [place] [id number] Dec History of right knee surgery Z98.890 [place] [address] [address] Dec, [place] [address] [address] Dec, Chronic pain syndrome G89.4 [place] [address] [address] November, Anxiety F41.9 [facility] N [facility] [id number] [address] [place] [address] November, Acute cystitis without hemat uria N30.00 [facility] [place] [address] [place] [id number] [address] [place] [address] November, Fever, unspecified fever cau se R50.9 and Acute cystitis without hematuria N30.00 [place] [address] [address] November, Chronic pain syndrome G89.4 [place] [address] [address] Oct, Anxiety F41.9 [place] [address] [address] Oct, Chronic pain syndrome G89.4 [place] [address] [address] Oct, Chronic pain syndrome G89.4 [place] [address] [address] Oct, [place] [address] [address] Oct, Chronic pain syndrome G89.4 ; Pain in ri ght knee M25.561 ; History of Clostridium difficile Z87.19 ; Iron deficiency anemia, unspecified iron deficiency anemia type D50.9 ; Peripheral vascular disease, unspecified I73.9 and Atrial fibrillation I48.91 [place] [address] [address] Oct, [facility] [id number] [place] [address] Oct, Chronic pain syndrome G89.4 [facility] [id number] [place] [address] Sep, [facility] [address] [id number] [place] [address] Sep, Depression, unspecified depression type F32.9 ; Chronic bronchitis, unspecified chronic bronchitis type J42 ; Chronic pain syndrome G89.4 and Anxiety F41.9 [facility] [address] [id number] Sep History of Clostridium difficile infection Z86.19 and History of stroke Z86.73 [facility] [place] [address] [id number] [place] [id number] Sep, Anxiety F41.9 [facility] [address] [address] Sep, Chronic pain syndrome G89.4 [facility] [address] [id number] [place] [address] Sep, [facility] [place] [address] [id number] [id number] Sep, [facility] [address] [address] Aug, Anxiety F41.9 [facility] [address] [address] Aug, Anxiety F41.9 [facility] [address] [address] 16 Aug, 2016 [facility] [address] [address] 14 Aug, 2016 Acute knee pain, unspecified laterality M25.569 [facility] [address] [address] 13 Aug, 2016 [facility] [address] [facility] [place] [address] Aug, Chronic pain syndrome G89.4 [facility] [address] [place] [address] [id number] [place] [address] Aug, [facility] [address] [facility] [place] [address] Aug, [facility] [address] [address] [id number] [place] [address] Jul, [facility] [address] [address] Jul, Anxiety F41.9 [facility] [address] [place] [address] [id number] [place] [address] Jul, Clostridium difficile diarrhea A04.7 [facility] [address] [id number] Jul Clostridium difficile diarrhea A04.7 ; Chronic pain syndrome G89.4 ; Chronic obstructive pulmon disease w acute lower resp infct J44.0 and Pain in right knee M25.561 [facility] [place] [address] [id number] [id number] Jul, [facility] [address] [facility] [id number] [address] [place] [address] Jul, Anxiety F41.9 and Chronic pa in syndrome G89.4 [facility] [address] [facility] [place] [address] Jun, Anxiety F41.9 [facility] [address] [facility] [place] [address] Jun, Rheumatoid arthritis 714.0 [facility] [id number] [place] [address] Jun, Chronic pain syndrome G89.4 [facility] [address] [id number] [place] [address] Jun, [facility] [address] [address] Jun, [facility] [address] [id number] [place] [address] Jun, History of pneumonia Z87.01 and History of Clostridium difficile Z87.19 [facility] [address] [id number] [place] [address] Jun, [facility] [address] [place] [id number] [place] [address] May, [facility] [address] [address] May, Anxiety F41.9 [place] [address] [address] May, Chronic pain syndrome G89.4 [place] [address] [place] [id number] [place] [address] 15 May, 2016 Chronic bronchitis, unspecified chronic bronchitis type J42 [place] [address] [place] [id number] [place] [address] May, [place] [address] [place] [id number] [place] [address] May, C. difficile diarrhea A04.7 ; Peripheral edema R60.9 ; COPD (chronic obstructive pulmonary disease) J44.9 ; Rheumatoid arthritis, involving unspecified site, unspecified rheumatoid factor presence M06.9 ; Pain in right knee M25.561 ; Pain in left knee M25.562 and Other chronic pain G89.29 [place] [address] [place] [address] [id number] [place] [address] May, [place] [address] [place] [id number] [place] [address] May, [place] [address] [address] [place] [address] May, Anxiety F41.9 [facility] [address] [address] [id number] [place] [address] Apr, [place] [address] [address] Apr, Chronic pain syndrome G89.4 [place] [address] [address] Apr, Leg pain, left M79.605 [facility] [address] [address] 14 Apr, 2016 [place] [address] [address] Apr, [place] [address] [address] Apr, [place] [address] [address] Mar, Chronic pain syndrome G89.4 [place] [address] [address] Mar, Acute frontal sinusitis, recurrence not specified J01.10 [place] [address] [address] 20 Mar, 2016 Iron deficiency anemia, unspecified iron deficiency anemia type D50.9 ; Rheumatoid arthritis with positive rheumatoid factor, involving unspecified site M05.9 and Depression, unspecified depression type F32.9 [place] [address] [address] Mar, Iron deficiency anemia, unspecified iron deficiency anemia type D50.9 ; Depression, unspecified depression type F32.9 and Rheumatoid arthritis with positive rheumatoid factor, involving unspecified site M05.9 [place] [address] [address] Mar, [place] [address] [address] Mar, [place] [address] [address] Feb, Chronic pain syndrome G89.4 [place] [address] [address] Feb, Status post partial amputation of left f oot Z89.432 ; Status post CVA Z86.73 ; Hemiplegia G81.90 and Anemia, unspecified type D64.9 [place] [address] [address] Feb, [place] [address] [address] Feb, Anemia, unspecified type D64.9 [place] [address] [address] Feb, [place] [address] [address] Feb, Iron deficiency anemia, unspecified iron deficiency anemia type D50.9 [place] [address] [address] Feb, [place] [address] [address] Feb, Chronic bronchitis, unspecified chronic bronchitis type J42 [place] [address] [address] Feb, Iron deficiency anemia, unspecified iron deficiency anemia type D50.9 [place] [address] [address] Feb, Chronic pain syndrome G89.4 [place] [address] [address] Feb, Anemia, unspecified type D64.9 and Hypox ia R09.02 [place] [address] [address] Feb, Anemia, unspecified type D64.9 [place] [address] [address] Jan, [place] [address] [address] Jan, Anemia, unspecified type D64.9 [place] [address] [address] Jan, [facility] [address] [address] Jan, Anemia, unspecified type D64.9 [facility] [address] [address] Jan, Anemia, unspecified type D64.9 [facility] [address] [address] Jan, [facility] [address] [address] Jan, Anemia, unspecified type D64.9 [facility] [address] [address] Jan, [facility] [address] [address] Jan, [facility] [address] [address] Jan, Chronic pain syndrome G89.4 [facility] [address] [address] Jan, Anemia, unspecified type D64.9 [facility] [address] [address] Jan, Dysthymia F34.1 ; Cervicalgia M54.2 ; Fa tigue, unspecified type R53.83 and Depression, unspecified depression type F32.9 [facility] [address] [address] [address] Dec, [facility] [address] [address] Dec, Anxiety F41.9 [facility] [address] [address] Dec, Chronic pain syndrome G89.4 [facility] [address] [address] November, [place] [id number] [place] [address] November, Edema R60.9 and Dizziness R42 [facility] [address] [address] November, [facility] [address] [address] November, [facility] [address] [address] November, COPD (chronic obstructive pulmonary dise ase) J44.9 ; Increased tracheal secretions J39.8 and Edema R60.[address] [facility] [address] [place] [address] Oct, [facility] [address] [place] [address] Oct, Shortness of breath R06.02 a nd Edema R60.9 [place] [address] [address] Oct, Chronic bronchitis, unspecified chronic bronchitis type J42 ; Peripheral vascular disease, unspecified I73.9 ; Rheumatoid arthritis M06.9 and Atrial fibrillation I48.91 [facility] [id number] [place] [address] Oct, [facility] [address] [address] Oct, [facility] [address] [address] Oct, [facility] [address] [address] Oct, [facility] [address] [place] [address] Oct, COPD exacerbation J44.1 [facility] [address] [address] Sep, [facility] [address] [place] [address] Sep, [facility] [address] [address] Sep, [facility] [address] [address] Aug, [facility] [address] [address] Aug, 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 and PVD (peripher al vascular disease) I73.9 [facility] [address] [address] Aug, Bronchitis J40 ; COPD (chronic obstructi ve pulmonary disease) J44.9 and Dysthymia F34.1 [facility] [address] [address] Aug, [facility] [address] [address] Jul, [facility] [address] [address] Jul, [facility] [address] [address] Jul, [facility] [address] [address] Jun, [facility] [address] [address] Jun, [facility] [address] [address] Jun, Peripheral vascular disease I73.9 [facility] [address] [address] Jun, [facility] [address] [address] Jun, [facility] [address] [address] Jun, Leg pain, left M79.605 ; Dysphagia, unsp ecified dysphagia R13.10 ; Insomnia, unspecified type G47.00 ; PVD (peripheral vascular disease) I73.9 and 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 [facility] [id number] [place] [address] May, [facility] [address] [address] May, [facility] [address] [address] May, [facility] [address] [address] May, [facility] [address] [address] May, [facility] [address] [address] Apr, [facility] [address] [address] Apr, [facility] [address] [address] Mar, [facility] [address] [address] Mar, [facility] [address] [address] Feb, [facility] [address] [address] Feb, Nicotine abuse 305.1 ; Arthralgia 719.40 and 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 [facility] [address] [address] Feb, [facility] [address] [address] Jan, [facility] [address] [address] Jan, [facility] [id number] [place] [address] Jan, [facility] [id number] [place] [address] Jan, [facility] [id number] [place] [address] Jan, 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 ; Rheumatoid arth ritis 714.0 ; Hypertension 401.9 ; GERD (gastroesophageal reflux disease) 530.81 ; Nicotine addiction 305.1 and Leukocytosis 288.60 [facility] [id number] [place] [address] Jan, [facility] [id number] [place] [address] Jan, [facility] [id number] [place] [address] Jan, [facility] [id number] [place] [address] Jan, [facility] [id number] [place] [address] Jan, [facility] [id number] [place] [address] Dec, [facility] [id number] [place] [address] Dec, [facility] [id number] [place] [address] Dec, [facility] [id number] [place] [address] Dec, [facility] [id number] [place] [address] November, [facility] [id number] [place] [address] November, [facility] [id number] [place] [address] November, Shortness of breath 786.05 [facility] [id number] [place] [address] November, Rheumatoid arthritis 714.0 [facility] [address] [address] November, 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 [facility] [id number] [place] [address] November, Neuropathy 355.9 ; Insomnia 780.52 ; Dys thymia 300.4 ; Shortness of breath 786.05 ; Rheumatoid arthritis 714.0 and Nausea 787.02 [facility] [id number] [place] [address] November, [facility] [address] [address] November, [facility] [id number] [place] [address] Oct, [facility] [address] [address] Oct, [facility] [id number] [place] [address] Oct, [facility] [address] [address] Oct, [facility] [address] [address] Sep, [facility] [id number] [place] [address] Sep, [facility] [id number] [place] [address] Sep, [facility] [address] [address] Sep, [facility] [id number] [place] [address] Sep, [facility] [address] [address] Sep, [facility] [place] [facility] [address] [id number] [place] [address] Sep, [facility] [place] [facility] [address] [id number] [place] [address] Sep, [facility] [place] [facility] [address] [id number] [place] [address] Aug, [facility] [place] [facility] [address] [id number] [place] [address] Aug, [facility] [place] [facility] [address] [id number] [place] [address] Aug, [facility] [place] [facility] [address] [id number] [place] [address] Aug, [facility] [place] [facility] [address] [id number] [place] [address] Aug, [facility] [place] [facility] [address] [id number] [place] [address] Aug, [facility] [place] [facility] [address] [id number] [place] [address] Jul, [facility] [place] [facility] [address] [id number] [place] [address] Jul, [facility] [place] [facility] [address] [id number] [place] [address] Jul, [facility] [place] [facility] [address] [id number] [place] [address] Jul, [facility] [place] [facility] [address] [id number] [place] [address] Jul, [facility] [place] [facility] [address] [id number] [place] [address] Jul, [facility] [place] [facility] [address] [id number] [place] [address] Jul, [facility] [place] [facility] [address] [id number] [place] [address] Jul, [facility] [place] [facility] [address] [id number] [place] [address] Jul, [facility] [place] [facility] [address] [id number] [place] [address] Jul, [facility] [place] [facility] [address] [facility] [id number] [place] [address] Jun, [facility] [place] [facility] [address] [id number] [place] [address] Jun, [facility] [place] [facility] [address] [id number] [place] [address] Jun, [facility] [place] [facility] [address] [facility] [id number] [place] [address] Jun, [facility] [place] [facility] [address] [id number] [place] [address] Jun, [facility] [place] [facility] [address] [id number] [place] [address] Jun, [facility] [place] [facility] [address] [id number] [place] [address] Jun, [facility] [place] [facility] [address] [id number] [place] [address] Jun, [facility] [place] [facility] [address] [id number] [place] [address] Jun, [facility] [place] [facility] [address] [id number] [place] [address] Jun, [facility] [place] [facility] [address] [id number] [place] [address] Jun, [facility] [place] [facility] [address] [id number] [place] [address] Jun, [facility] [place] [facility] [address] [id number] [place] [address] Jun, [facility] [place] [facility] [address] [id number] [place] [address] Jun, [facility] [place] [facility] [address] [id number] [place] [address] Jun, [facility] [place] [facility] [address] [id number] [place] [address] Jun, [facility] [place] [facility] [address] [id number] [place] [address] May, [facility] [place] [facility] [address] [id number] [place] [address] May, [facility] [place] [facility] [address] [id number] [place] [address] May, [facility] [place] [facility] [address] [id number] [place] [address] May, [facility] [place] [facility] [address] [id number] [place] [address] May, [facility] [place] [facility] [address] [id number] [place] [address] May, [facility] [place] [facility] [address] [id number] [place] [address] May, [facility] [place] [facility] [address] [id number] [place] [address] May, [facility] [place] [facility] [address] [id number] [place] [address] May, [facility] [place] [facility] [address] [id number] [place] [address] Apr, [facility] [place] [facility] [address] [id number] [place] [address] Apr, [facility] [place] [facility] [address] [id number] [place] [address] Apr, [facility] [place] [facility] [address] [id number] [place] [address] Apr, [facility] [place] [facility] [id number] [place] [address] Apr, [facility] [place] [facility] [address] [id number] [place] [address] Apr, [facility] [place] [facility] [address] [id number] [place] [address] Apr, [facility] [place] [facility] [address] [facility] [id number] [place] [address] Apr, 2013 [facility] [place] [facility] [address] [id number] [place] [address] Apr, 2013 [facility] [place] [facility] [address] [id number] [place] [address] Apr, [facility] [place] [facility] [address] [id number] [place] [address] Apr, [facility] [place] [facility] [address] [id number] [place] [address] Apr, [facility] [place] [facility] [address] [id number] [place] [address] Mar, [facility] [place] [facility] [address] [id number] [place] [address] Mar, 2013 [facility] [place] [facility] [address] [id number] [place] [address] Mar, 2013 [facility] [place] [facility] [address] [id number] [place] [address] Mar, 2013 [facility] [place] [facility] [address] [id number] [place] [address] Mar, 2013 [facility] [place] [facility] [address] [id number] [place] [address] Mar, 2013 [facility] [place] [facility] [address] [id number] [place] [address] Mar, 2013 [facility] [place] [facility] [address] [id number] [place] [address] Mar, 2013 [facility] [place] [facility] [address] [id number] [place] [address] Mar, 2013 [facility] [place] [facility] [address] [id number] [place] [address] Mar, 2013 [facility] [place] [facility] [address] [id number] [place] [address] Feb, [facility] [place] [facility] [address] [id number] [place] [address] Feb, [facility] [place] [facility] [address] [id number] [facility] [place] [address] Feb, [facility] [place] [facility] [address] [id number] [place] [address] Feb, [facility] [place] [facility] [address] [facility] [id number] [facility] [place] [address] Feb, [facility] [place] [facility] [address] [id number] [place] [address] Feb, [facility] [place] [facility] [address] [id number] [place] [address] Feb, [facility] [place] [facility] [address] [id number] [place] [address] Feb, [facility] [place] [facility] [address] [facility] [id number] [facility] [place] [address] Feb, [facility] [place] [facility] [address] [id number] [facility] [place] [address] Feb, [facility] [place] [facility] [address] [id number] [facility] [place] [address] Feb, [facility] [place] [facility] [address] [id number] [place] [address] Feb, [facility] [place] [facility] [address] [facility] [id number] [place] [address] Feb, [facility] [place] [facility] [address] [id number] [place] [address] Feb, [facility] [place] [facility] [address] [id number] [facility] [place] [address] Feb, [facility] [place] [facility] [address] [id number] [facility] [place] [address] Feb, [facility] [place] [facility] [address] [facility] [id number] [place] [address] Jan, [facility] [place] [facility] [address] [facility] [id number] [facility] [place] [address] Jan, [facility] [place] [facility] [address] [facility] [id number] [place] [address] 16 Jan, 2014 [facility] [place] [facility] [address] [id number] [place] [address] 16 Jan, 2014 [facility] [place] [facility] [address] [facility] [id number] [place] [address] Jan, [facility] [place] [facility] [address] [id number] [place] [address] Jan, [facility] [place] [facility] [address] [facility] [id number] [place] [address] Dec, [facility] [place] [facility] [address] [id number] [place] [address] Dec, [facility] [place] [facility] [address] [id number] [place] [address] Dec, [facility] [place] [facility] [address] [id number] [place] [address] Dec, [facility] [place] [facility] [address] [id number] [place] [address] Dec, [facility] [place] [facility] [address] [facility] [id number] [place] [address] Dec, [facility] [place] [facility] [address] [id number] [place] [address] Dec, [facility] [place] [facility] [address] [id number] [place] [address] Dec, [facility] [place] [facility] [address] [id number] [place] [address] November, [facility] [place] [facility] [address] [facility] [id number] [place] [address] November, [facility] [place] [facility] [address] [id number] [place] [address] November, [facility] [place] [facility] [address] [id number] [place] [address] November, [facility] [place] [facility] [address] [id number] [place] [address] November, [facility] [place] [facility] [address] [id number] [place] [address] November, [facility] [place] [facility] [address] [id number] [place] [address] Oct, [facility] [place] [facility] [address] [id number] [place] [address] Oct, [facility] [place] [facility] [address] [id number] [place] [address] Oct, [facility] [place] [facility] [address] [id number] [place] [address] Oct, [facility] [place] [facility] [address] [id number] [place] [address] Sep, [facility] [place] [facility] [address] [id number] [place] [address] Sep, [facility] [place] [facility] [address] [id number] [place] [address] Sep, [facility] [place] [facility] [address] [id number] [place] [address] Sep, [facility] [place] [facility] [address] [id number] [place] [address] Sep, [facility] [place] [facility] [address] [id number] [place] [address] Sep, [facility] [place] [facility] [address] [id number] [place] [address] Aug, [facility] [place] [facility] [address] [id number] [place] [address] Aug, [facility] [place] [facility] [address] [id number] [place] [address] Aug, [facility] [place] [facility] [address] [id number] [place] [address] Aug, [facility] [place] [facility] [address] [id number] [place] [address] Aug, [facility] [place] [facility] [address] [id number] [place] [address] Aug, [facility] [place] [facility] [address] [facility] [id number] [place] [address] Jul, [facility] [place] [facility] [address] [id number] [place] [address] Jul, [facility] [place] [facility] [address] [id number] [place] [address] Jul, [facility] [place] [facility] [address] [id number] [place] [address] Jul, [facility] [place] [facility] [address] [id number] [place] [address] Jul, [facility] [place] [facility] [address] [id number] [place] [address] Jul, [facility] [place] [facility] [address] [id number] [place] [address] Jul, [facility] [place] [facility] [address] [id number] [place] [address] Jul, [facility] [place] [facility] [address] [id number] [place] [address] Jul, [facility] [place] [facility] [address] [id number] [place] [address] Jul, [facility] [place] [facility] [address] [id number] [place] [address] Jul, [facility] [place] [facility] [address] [id number] [place] [address] Jul, [facility] [address] [id number] [place] [address] Jul, [facility] [address] [id number] [place] [address] Jul, [facility] [address] [id number] [place] [address] Jul, [facility] [address] [id number] [place] [address] Jun, [facility] [address] [id number] [place] [address] 18 Jun, 2013 [facility] [address] [id number] [place] [address] Jun, [facility] [address] [id number] [place] [address] Jun, [facility] [address] [id number] [place] [address] May, [facility] [address] [id number] [place] [address] May, [facility] [address] [facility] [id number] May, [facility] [address] [id number] [place] [address] May, [facility] [address] [id number] [place] [address] May, [facility] [address] [id number] [place] [address] May, [facility] [address] [id number] [place] [address] May, [facility] [address] [id number] [place] [address] May, [facility] [address] [id number] [place] [address] May, [facility] [address] [facility] [id number] May, [facility] [address] [id number] [place] [address] May, [facility] [address] [facility] [id number] May, [facility] [address] [id number] [place] [address] May, [facility] [address] [facility] [id number] May, [facility] [id number] [place] [address] May, IMMUNIZATIONS No Known Immunizations SOCIAL HISTORY [...] 014 Surgical History capsule endoscopy Dr Pittman WN 04/01 16 Surgical History Rt TKA 12/24/16 [...] leukocytosis--tank [facility]is 01/08/16 Hospitalization History pseudomemranous colitis, sepsis--[facility] 04/21/2016 Hospitalization History C Diff--[facility] 05/10/2016 Hospitalization History sepsis, pneumonia, diarrhea--[facility] Hospitalization History recurrent cdiff, pneumonia-[facility] Hospitalization History sepsis,pneumonia- [facility] 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
--- OUTSIDE RECORDS SUMMARY | 2019-11-07 10:15 | XMS REPORT ---
Author Author Lona YUSUF Organization 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 451360082 Problem COPD (chronic obstructive pulmonary disease) J44.9 Active 78785097 Problem Hypertension I10 Active 5009173 3 Problem Primary insomnia F51.01 Active 397 2004 Problem Hx of Clostridium difficile infection Z86.19 Active 500721958 Problem Chronic obstructive pulmon disease w acute lower resp infc t J44.0 Active 990573273 Problem History of arthroplasty of right knee Z96.651 Active 258153566 Problem Leg pain, left M79.605 Active 52955 7008 Problem Status post partial amputation of left foot Z89.43 2 Active 620614800 Problem Edema R60.9 Active 672884099 Problem Tobacco abuse, 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 Ac tive 981208177 Problem Anxiety F41.9 Active 58425709 Problem Chronic pain syndrome G89.4 Active 218062884 Problem Anemia, unspecified type D64.9 Activ e 621067491 Problem Depression, unspecified depression type F32.9 Active 78709623 Problem Other chronic pain G89.29 Active 8 0776034 Problem Iron deficiency anemia, unspecified iron deficiency an emia type D50.9 Active 10164084 Problem Insomnia, unspecified G47.00 Active 783341956 Problem Seasonal allergic rhinitis due to pollen J30.1 Active 66750289 Problem History of oral cancer Z85.819 Active 559725465 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 36 9269771 Problem Atrial fibrillation I48.91 Active 17100596 Problem Chronic obstructive pulmonary disease with (acute) exa cerbation J44.1 Active 101513118 Problem Rheumatoid arthritis M06.9 Active 28673175 Problem Dysthymia F34.1 Active 79832045 Problem Neuropathy G62.9 Active 206737560 Problem Rheumatoid arthritis with po sitive rheumatoid factor, involving unspecified site M05.9 Active 61823513 Problem Hemiplegia and hemiparesis f ollowing cerebral infarction affecting right dominant side I69.351 Active 687802881 Problem Cancer of neck C76.0 Active 30016 9000 ALLERGIES No Information ENCOUNTERS Encounter Location Date Diagnosis [place] [address] [address] [facility] [id number] [address] [place] [phone] November, [place] [address] [address] [facility] [id number] [address] [place] [phone] Sep, Chronic pain syndrome G89.4 and Rheumatoid arthritis with positive rheumatoid factor, involving unspecified site M05.9 [place] [address] [address] [facility] [id number] [address] [place] [phone] Sep, [place] [address] [address] [facility] [id number] [address] [place] [id number] Aug, Chronic pain syndrome G89.[id number] [place] [phone] 19 Aug, 2019 Chronic obstructive pulmonar y disease with (acute) exacerbation J44.1 [place] [address] [address] [facility] [id number] [address] [place] [id number] 12 Aug, 2019 Single subsegmental pulmonar y embolism without acute cor pulmonale I26.93 ; Rheumatoid arthritis with positive rheumatoid factor, involving unspecified site M05.9 ; Chronic pain syndrome G89.4 ; Leg pain, left M79.605 and 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 [address] [id number] [address] [place] [id number] 07 Aug, 2019 Chronic pain syndrome G89.4 [facility] [address] [facility] [id number] [address] [place] [id number] Jul, Primary insomnia F51.01 [facility] [address] [id number] [address] [place] [phone] Jul, Chronic pain syndrome G89.4 [facility] [address] [id number] [address] [place] [phone] Jul, [facility] [address] [facility] [id number] [address] [place] [phone] Jul, [facility] [address] [facility] [id number] [address] [place] [phone] Jul, Rheumatoid arthritis with po sitive rheumatoid factor, involving unspecified site M05.9 and Chronic pain syndrome G89.4 [facility] [address] [facility] [id number] [address] [place] [phone] Jul, [facility] [address] [facility] [id number] [address] [place] [phone] Jun, Rheumatoid arthritis with po sitive rheumatoid factor, involving unspecified site M05.9 [facility] [address] [facility] [id number] [address] [place] [phone] Jun, Chronic pain syndrome G89.4 ; Rheumatoid arthritis with positive rheumatoid factor, involving unspecified site M05.[address] [facility] [address] [id number] [address] [place] [phone] Jun, [facility] [address] [facility] [id number] [address] [place] [id number] Jun, Hemorrhoids, unspecified hem orrhoid type K64.9 [facility] [address] [id number] [address] [place] [phone] Jun, Hemorrhoids, unspecified hem orrhoid type K64.9 ; Cancer of neck C76.0 and Drug-induced constipation K59.03 [facility] [address] [id number] [address] [place] [phone] Jun, [facility] [address] [id number] [address] [place] [id number] Jun, [facility] [address] [id number] [address] [place] [id number] Jun, Rheumatoid arthritis with po sitive rheumatoid factor, involving unspecified site M05.9 [facility] [address] [id number] [address] [place] [phone] May, [facility] [address] [id number] [address] [place] [id number] May, Rheumatoid arthritis with po sitive rheumatoid factor, involving unspecified site M05.9 [facility] [address] [id number] [address] [place] [phone] Apr, Primary insomnia F51.01 [facility] [address] [id number] [address] [place] [id number] Apr, Rheumatoid arthritis with po sitive rheumatoid factor, involving unspecified site M05.9 [facility] [address] [id number] [address] [place] [phone] Mar, [facility] [address] [id number] [address] [place] [phone] Mar, [facility] [address] [id number] [address] [place] [phone] Mar, Rheumatoid arthritis with po sitive rheumatoid factor, involving unspecified site M05.9 ; Atrial fibrillation I48.91 ; Chronic pain syndrome G89.4 ; Iron deficiency anemia, unspecified iron deficiency anemia type D50.9 and Hemiplegia and hemiparesis following cerebral infarction affecting right dominant side I69.351 [facility] [address] [id number] [address] [place] [id number] Mar, Chronic pain syndrome G89.4 and Primary insomnia F51.01 [facility] [address] [id number] [address] [place] [id number] Mar, Rheumatoid arthritis with po sitive rheumatoid factor, involving unspecified site M05.9 [facility] [address] [id number] [address] [place] [id number] Feb, Rheumatoid arthritis with po sitive rheumatoid factor, involving unspecified site M05.9 ; Chronic pain syndrome G89.4 ; Atrial fibrillation I48.91 ; Iron deficiency anemia, unspecified iron deficiency anemia type D50.9 ; Hemiplegia and hemiparesis following cerebral infarction affecting right dominant side I69.351 and Primary insomnia F51.01 [facility] [address] [id number] [address] [place] [phone] Feb, Chronic pain syndrome G89.4 [facility] [address] [id number] [address] [place] [phone] Jan, Chronic pain syndrome G89.4 [facility] [address] [id number] [address] [place] [phone] Jan, [facility] [address] [id number] [address] [place] [address] Jan, [facility] [address] [id number] [address] [place] [id number] Dec, [facility] [address] [id number] [address] [place] [id number] Dec, Chronic pain syndrome G89.4 [facility] [address] [id number] [address] [place] [id number] Dec, [facility] [address] [id number] [address] [place] [phone] November, Chronic pain syndrome G89.4 [facility] [address] [id number] [address] [place] [phone] Oct, Chronic pain syndrome G89.4 [facility] [address] [facility] [id number] [address] [place] [phone] Oct, [facility] [address] [facility] [id number] [address] [place] [phone] Sep, Chronic pain syndrome G89.4 [facility] [address] [place] [id number] [address] [place] [id number] Sep, Leg pain, left M79.605 ; Rig ht leg pain M79.604 and Reactive cervical nodes R59.0 [facility] [address] [place] [id number] [address] [place] [id number] 14 Sep, 2018 [facility] [address] [place] [id number] [address] [place] [id number] Sep, Neuropathy G62.9 [facility] [place] [address] [place] [id number] [place] [id number] Sep, [facility] [address] [place] [id number] [address] [place] [id number] Sep, Lymphadenopathy of left cerv ical region R59.0 [facility] [address] [place] [id number] [address] [place] [id number] Sep, Lymphadenopathy of left cerv ical region R59.[address] [facility] [address] [place] [id number] [address] [place] [phone] Aug, Chronic pain syndrome G89.4 [facility] [address] [place] [id number] [address] [place] [id number] Aug, [facility] [address] [place] [id number] [address] [place] [id number] 04 Aug, 2018 Peripheral vascular disease, unspecified I73.9 ; Other chronic pain G89.29 ; Chronic obstructive pulmon disease w acute lower resp infct J44.0 and Primary insomnia F51.01 [facility] [address] [place] [id number] [address] [place] [id number] Aug, Chronic pain syndrome G89.4 [facility] [address] [facility] [id number] [address] [place] [id number] Jul, Chronic pain syndrome G89.4 [facility] [address] [facility] [id number] [address] [place] [phone] Jun, Chronic pain syndrome G89.4 [facility] [address] [facility] [id number] [address] [place] [phone] May, Chronic pain syndrome G89.4 [facility] [address] [facility] [id number] [place] [phone] Apr, Cough R05 and Viral illness B34.9 [facility] [address] [place] [id number] [place] [phone] Apr, Encounter for immunization Z 23 [facility] [address] [place] [id number] [place] [phone] Apr, Chronic pain syndrome G89.4 [facility] [address] [place] [id number] [place] [phone] Apr, Left acute otitis media H66. 92 [facility] [address] [facility] [id number] [address] [place] [id number] Mar, Rheumatoid arthritis M06.9 ; Other chronic pain G89.29 ; History of oral cancer Z85.819 and History of tachycardia Z87.898 [facility] [address] [facility] [id number] [address] [place] [id number] Mar, Chronic pain syndrome G89.4 [facility] [address] [place] [id number] [address] [place] [id number] Feb, Chronic pain syndrome G89.4 [facility] [address] [place] [id number] [address] [place] [id number] Feb, Chronic pain syndrome G89.4 [facility] [address] [place] [id number] [place] [phone] 13 Jan, 2018 Chronic pain syndrome G89.4 [facility] [address] [id number] [address] [place] [phone] Jan, [facility] [address] [id number] [address] [place] [phone] Dec, Chronic pain syndrome G89.4 [facility] [address] [id number] [address] [place] [phone] November, Chronic pain syndrome G89.4 [facility] [address] [id number] [address] [place] [phone] November, [facility] [address] [id number] [address] [place] [id number] Oct, Chronic pain syndrome G89.4 [facility] [address] [id number] [address] [place] [id number] Oct, [facility] [address] [id number] [address] [place] [id number] Oct, Chronic pain syndrome G89.4 [facility] [address] [id number] [address] [place] [id number] Oct, [facility] [address] [id number] [address] [place] [phone] Oct, [facility] [address] [id number] [address] [place] [address] Sep, Left upper quadrant pain R10 .12 ; Chronic pain syndrome G89.4 ; Left lower quadrant pain R10.32 ; Other chronic pain G89.29 ; Sacrococcygeal disorders, not elsewhere classified M53.3 and Seasonal allergic rhinitis due to pollen J30.1 [facility] [address] [id number] [address] [place] [id number] Sep, Chronic pain syndrome G89.4 [facility] [address] [id number] [address] [place] [id number] Sep, [facility] [address] [id number] [address] [place] [phone] Aug, Chronic pain syndrome G89.4 [facility] [address] [id number] [address] [place] [phone] Aug, [facility] [address] [facility] [id number] [address] [place] [address] Aug, Insomnia, unspecified G47.00 [facility] [address] [id number] [address] [place] [id number] Jul, [facility] [address] [facility] [id number] [address] [place] [phone] Jul, [facility] [address] [facility] [id number] [address] [place] [id number] Jul, Chronic pain syndrome G89.4 [facility] [address] [facility] [id number] [address] [place] [phone] Jun, Chronic pain syndrome G89.4 [facility] [address] [facility] [id number] [address] [place] [id number] Jun, Chronic pain syndrome G89.4 [facility] [address] [facility] [id number] [address] [place] [phone] May, [facility] [address] [facility] [id number] [address] [place] [id number] May, Shortness of breath R06.02 ; Peripheral vascular disease, unspecified I73.9 ; Pain in right knee M25.561 ; Other chronic pain G89.29 ; Chest wall pain R07.89 ; Chronic pain syndrome G89.4 ; Primary insomnia F51.01 and Ear pain, left H92.02 [facility] [address] [facility] [id number] [address] [place] [phone] 06 May, [address] [facility] [address] [facility] [id number] [address] [place] [address] Apr, Pneumonia due to infectious organism, unspecified laterality, unspecified part of lung J18.9 ; Hypoxia R09.02 ; Bradycardia R00.1 ; History of Clostridium difficile Z87.19 and Primary insomnia F51.01 [facility] [address] [facility] [id number] [address] [place] [id number] Apr, Anxiety F41.9 [facility] [address] [id number] [address] [place] [phone] Apr, [facility] [address] [facility] [id number] [address] [place] [id number] Mar, Anxiety F41.9 [place] [address] [facility] [id number] [address] [place] [id number] Feb, [facility] [address] [facility] [id number] [address] [place] [phone] Feb, [facility] [address] [facility] [id number] [address] [place] [phone] Feb, Abnormal finding on urinalys is R82.90 [place] [address] [facility] [id number] [address] [place] [phone] Feb, [place] [address] [facility] [id number] [address] [place] [address] Feb, Shortness of breath R06.02 ; Tachycardia R00.0 ; Cough R05 ; Ill feeling R68.89 and Abnormal finding on urinalysis R82.90 [facility] [address] [facility] [id number] [address] [place] [phone] Feb, Anxiety F41.9 [facility] [address] [facility] [id number] [address] [place] [phone] Feb, Sore throat J02.9 and Acute diffuse otitis externa of left ear H60.312 [facility] [address] [facility] [id number] [address] [place] [id number] Jan, [facility] [address] [facility] [id number] [address] [place] [id number] Jan, [facility] [id number] [place] [id number] Jan, [facility] [address] [facility] [id number] [address] [place] [id number] Jan, Depression, unspecified depr ession type F32.9 ; Chronic bronchitis, unspecified chronic bronchitis type J42 ; Chronic pain syndrome G89.[address] [facility] [address] [facility] [id number] [address] [place] [id number] Jan, [facility] [address] [facility] [id number] [address] [place] [id number] Jan, [facility] [address] [facility] [id number] [address] [place] [id number] Jan, [facility] [address] [place] [id number] [place] [id number] Jan, Chronic pain syndrome G89.4 [facility] [address] [place], [place] [id number] Dec History of right knee surgery Z98.890 [facility] [address] [facility] [id number] [address] [place] [id number] Dec, [facility] [address] [facility] [id number] [address] [place] [id number] Dec, Chronic pain syndrome G89.4 [facility] [address] [facility] [id number] [address] [place] [phone] November, Anxiety F41.9 [facility] [address] [facility] [id number] [address] [place] [id number] November, Acute cystitis without hemat uria N30.00 [facility] [address] [facility] [id number] [address] [place] [phone] November, Fever, unspecified fever cau se R50.9 and Acute cystitis without hematuria N30.00 [facility] [address] [facility] [id number] [address] [place] [phone] November, Chronic pain syndrome G89.4 [place] [address] [address] [facility] [id number] [address] [place] [phone] Oct, Anxiety F41.9 [place] [address] [address] [place] [id number] [address] [place] [id number] Oct, Chronic pain syndrome G89.4 [place] [address] [address] [facility] [id number] [address] [place] [phone] Oct, Chronic pain syndrome G89.4 [place] [address] [place] [address] Oct, [place] [address] [place] [address] Oct, Chronic pain syndrome G89.4 ; Pain in right knee M25.561 ; History of Clostridium difficile Z87.19 ; Iron deficiency anemia, unspecified iron deficiency anemia type D50.9 ; Peripheral vascular disease, unspecified I73.9 and Atrial fibrillation I48.91 [place] [address] [place] [address] Oct, [place] [address] [place] [address] Oct, Chronic pain syndrome G89.4 [place] [address] [place] [id number] [address] [place] [id number] Sep, [place] [address] [address] [facility] [id number] [address] [place] [phone] Sep, Depression, unspecified depr ession type F32.9 ; Chronic bronchitis, unspecified chronic bronchitis type J42 ; Chronic pain syndrome G89.4 and Anxiety F41.9 [employer] [address] [id number] Sep History of Clostridium difficile infection Z86.19 and History of stroke Z86.73 [facility] [address] [place] [id number] [place] [id number] Sep, Anxiety F41.9 [facility] [address] [id number] [address] [place] [id number] Sep, Chronic pain syndrome G89.4 [facility] [address] [id number] [address] [place] [id number] Sep, [facility] [id number] [place] [id number] Sep, [facility] [address] [id number] [address] [place] [id number] Aug, Anxiety F41.9 [facility] [address] [id number] [address] [place] [phone] Aug, Anxiety F41.9 [facility] [address] [id number] [address] [place] [id number] 16 Aug, 2016 [facility] [address] [id number] [address] [place] [id number] 14 Aug, 2016 Acute knee pain, unspecified laterality M25.569 [facility] [address] [id number] [address] [place] [id number] [address], [address] [facility] [address] [facility] [id number] [address] [place] [id number] 09 Aug, 2016 Chronic pain syndrome G89.4 [facility] [address] [id number] [address] [place] [phone] [address], [address] [facility] [address] [id number] [address] [place] [phone] Aug, [facility] [address] [id number] [address] [place] [id number] Jul, [facility] [address] [id number] [address] [place] [phone] Jul, Anxiety F41.9 [facility] [address] [id number] [address] [place] [id number] Jul, Clostridium difficile diarrh ea A04.7 [employer] [address] [id number] Jul Clostridium difficile diarrhea A04.7 ; Chronic pain syndrome G89.4 ; Chronic obstructive pulmon disease w acute lower resp infct J44.0 and Pain in right knee M25.561 [facility] [address] [id number] [id number] Jul, [facility] [address] [id number] [address] [place] [phone] Jul, Anxiety F41.9 and Chronic pa in syndrome G89.4 [facility] [address] [id number] [address] [place] [phone] Jun, Anxiety F41.9 [facility] [address] [id number] [address] [place] [phone] Jun, Rheumatoid arthritis 714.0 [facility] [address] [id number] [address] [place] [phone] Jun, Chronic pain syndrome G89.4 [facility] [address] [id number] [address] [place] [id number] Jun, [facility] [address] [id number] [address] [place] [phone] Jun, [facility] [address] [id number] [address] [place] [id number] Jun, History of pneumonia Z87.01 and History of Clostridium difficile Z87.19 [facility] [address] [id number] [address] [place] [id number] Jun, [facility] [address] [id number] [address] [place] [phone] May, [facility] [address] [id number] [address] [place] [phone] May, Anxiety F41.9 [facility] [address] [id number] [address] [place] [id number] May, Chronic pain syndrome G89.4 [facility] [address] [id number] [address] [place] [id number] May, Chronic bronchitis, unspecif ied chronic bronchitis type J42 [facility] [address] [facility] [id number] [address] [place] [phone] May, [facility] [address] [facility] [id number] [address] [place] [id number] May, C. difficile diarrhea A04.7 ; Peripheral edema R60.9 ; COPD (chronic obstructive pulmonary disease) J44.9 ; Rheumatoid arthritis, involving unspecified site, unspecified rheumatoid factor presence M06.9 ; Pain in right knee M25.561 ; Pain in left knee M25.562 and Other chronic pain G89.29 [facility] [address] [facility] [id number] [address] [place] [phone] May, [facility] [address] [id number] [address] [place] [phone] May, [facility] [address] [facility] [id number] [address] [place] [phone] May, Anxiety F41.9 [facility] [address] [facility] [id number] [address] [place] [phone] Apr, [facility] [address] [facility] [id number] [address] [place] [phone] Apr, Chronic pain syndrome G89.4 [facility] [address] [id number] [address] [place] [id number] Apr, Leg pain, left M79.605 [facility] [address] [facility] [id number] [address] [place] [id number] Apr, [facility] [address] [facility] [id number] [address] [place] [phone] Apr, [facility] [address] [facility] [id number] [address] [place] [phone] Apr, [facility] [address] [facility] [id number] [address] [place] [phone] 28 Mar, 2016 Chronic pain syndrome G89.4 [facility] [address] [facility] [id number] [address] [place] [id number] 22 Mar, 2016 Acute frontal sinusitis, rec urrence not specified J01.10 [facility] [address] [facility] [id number] [address] [place] [phone] 20 Mar, 2016 Iron deficiency anemia, unsp ecified iron deficiency anemia type D50.9 ; Rheumatoid arthritis with positive rheumatoid factor, involving unspecified site M05.9 and Depression, unspecified depression type F32.9 [facility] [address] [facility] [id number] [address] [place] [phone] 13 Mar, 2016 Iron deficiency anemia, unsp ecified iron deficiency anemia type D50.9 ; Depression, unspecified depression type F32.9 and Rheumatoid arthritis with positive rheumatoid factor, involving unspecified site M05.9 [facility] [address] [facility] [id number] [address] [place] [id number] Mar, [facility] [address] [facility] [id number] [address] [place] [id number] Mar, [facility] [address] [facility] [id number] [address] [place] [phone] Feb, Chronic pain syndrome G89.4 [facility] [address] [facility] [id number] [address] [place] [phone] 30 Feb, 2016 Status post partial amputati on of left foot Z89.432 ; Status post CVA Z86.73 ; Hemiplegia G81.90 and Anemia, unspecified type D64.9 [facility] [address] [facility] [id number] [address] [place] [id number] Feb, [facility] [address] [facility] [id number] [address] [place] [id number] Feb, Anemia, unspecified type D64 .9 [facility] [address] [facility] [id number] [address] [place] [phone] Feb, [facility] [address] [facility] [id number] [address] [place] [phone] Feb, Iron deficiency anemia, unsp ecified iron deficiency anemia type D50.9 [facility] [address] [facility] [id number] [address] [place] [id number] Feb, [facility] [address] [facility] [id number] [address] [place] [phone] Feb, Chronic bronchitis, unspecif ied chronic bronchitis type J42 [place] [address] [address] [facility] [id number] [address] [place] [phone] Feb, Iron deficiency anemia, unsp ecified iron deficiency anemia type D50.9 [place] [address] [facility] [id number] [address] [place] [phone] Feb, Chronic pain syndrome G89.4 [place] [address] [facility] [id number] [address] [place] [id number] Feb, Anemia, unspecified type D64 .9 and Hypoxia R09.02 [place] [address] [facility] [id number] [address] [place] [phone] Feb, Anemia, unspecified type D64 .9 [place] [address] [facility] [id number] [address] [place] [phone] Jan, [facility] [address] [facility] [id number] [address] [place] [phone] Jan, Anemia, unspecified type D64 .9 [facility] [address] [facility] [id number] [address] [place] [phone] Jan, [facility] [address] [facility] [id number] [address] [place] [phone] Jan, Anemia, unspecified type D64 .9 [facility] [address] [facility] [id number] [address] [place] [id number] Jan, Anemia, unspecified type D64 .9 [facility] [address] [facility] [id number] [address] [place] [phone] Jan, [facility] [address] [facility] [id number] [address] [place] [phone] Jan, Anemia, unspecified type D64 .9 [facility] [address] [facility] [id number] [address] [place] [phone] Jan, [facility] [address] [facility] [id number] [address] [place] [id number] Jan, [facility] [address] [facility] [id number] [address] [place] [address] Jan, Chronic pain syndrome G89.4 [place] [address] [place] [id number] [address] [place] [id number] Jan, Anemia, unspecified type D64 .9 [facility] [address] [facility] [id number] [address] [place] [address] Jan, Dysthymia F34.1 ; Cervicalgi a M54.2 ; Fatigue, unspecified type R53.83 and Depression, unspecified depression type F32.9 [facility] [address] [facility] [id number] [address] [place] [id number] Dec, [place] [address] [place] [id number] [address] [place] [id number] Dec, Anxiety F41.9 [facility] [address] [facility] [id number] [address] [place] [phone] Dec, Chronic pain syndrome G89.4 [facility] [address] [place] [id number] [address] [place] [phone] November, [facility] [address] [facility] [id number] [address] [place] [phone] November, Edema R60.9 and Dizziness R4 2 [place] [address] [place] [id number] [address] [place] [id number] November, [facility] [address] [facility] [id number] [address] [place] [address] November, [facility] [address] [facility] [id number] [address] [place] [id number] November, COPD (chronic obstructive pu lmonary disease) J44.9 ; Increased tracheal secretions J39.8 and Edema R60.9 [facility] [address] [facility] [id number] [address] [place] [phone] Oct, [facility] [address] [facility] [id number] [address] [place] [id number] Oct, Shortness of breath R06.[address]ema R60.9 [facility] [address] [facility] [id number] [address] [place] [id number] Oct, Chronic bronchitis, unspecif ied chronic bronchitis type J42 ; Peripheral vascular disease, unspecified I73.9 ; Rheumatoid arthritis M06.[address] [facility] [address] [facility] [id number] [address] [place] [phone] Oct, [facility] [address] [facility] [id number] [address] [place] [phone] Oct, [facility] [address] [facility] [id number] [address] [place] [phone] Oct, [facility] [address] [facility] [id number] [address] [place] [phone] Oct, [facility] [address] [facility] [id number] [address] [place] [id number] Oct, COPD exacerbation J44.1 [facility] [address] [facility] [id number] [address] [place] [id number] Sep, [facility] [address] [facility] [id number] [address] [place] [phone] Sep, [facility] [id number] [place] [phone] Sep, [facility] [address] [facility] [id number] [address] [place] [id number] Aug, [facility] [address] [place] [id number] [address] [place] [id number] Aug, 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 and P VD (peripheral vascular disease) I73.9 [facility] [address] [place] [id number] [address] [place] [address] Aug, Bronchitis J40 ; COPD (chron ic obstructive pulmonary disease) J44.[address] [facility] [address] [place] [id number] [address] [place] [address] Aug, [facility] [address] [place] [id number] [address] [place] [id number] Jul, [facility] [address] [place] [id number] [address] [place] [id number] Jul, [facility] [address] [place] [id number] [address] [place] [id number] Jul, [facility] [address] [place] [id number] [address] [place] [phone] Jun, [facility] [address] [place] [id number] [address] [place] [phone] Jun, [facility] [address] [place] [id number] [address] [place] [id number] Jun, Peripheral vascular disease I73.9 [facility] [address] [facility] [id number] [address] [place] [id number] Jun, [facility] [address] [place] [id number] [address] [place] [id number] Jun, 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 [address] [id number] [address] [place] [id number] May, [facility] [address] [id number] [address] [place] [id number] May, [facility] [address] [id number] [address] [place] [phone] May, [facility] [address] [id number] [address] [place] [phone] May, [facility] [address] [id number] [address] [place] [phone] May, [facility] [address] [facility] [id number] [address] [place] [phone] Apr, [facility] [address] [id number] [address] [place] [id number] Apr, [facility] [address] [place] [id number] [address] [place] [phone] Mar, [facility] [address] [facility] [id number] [address] [place] [phone] Mar, [facility] [address] [facility] [id number] [address] [place] [phone] Feb, [facility] [address] [facility] [id number] [address] [place] [phone] Feb, Nicotine abuse 305.1 ; Arthr algia 719.40 and 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 [facility] [address] [facility] [id number] [address] [place] [phone] Feb, [facility] [address] [facility] [id number] [address] [place] [phone] Jan, [facility] [address] [id number] [address] [place] [phone] Jan, [facility] [address] [id number] [address] [place] [phone] Jan, [facility] [address] [id number] [address] [place] [phone] Jan, [facility] [address] [id number] [address] [place] [phone] Jan, 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 ; Rhe umatoid arthritis 714.0 ; Hypertension 401.9 ; GERD (gastroesophageal reflux disease) 530.81 ; Nicotine addiction 305.[address] [facility] [address] [id number] [address] [place] [phone] Jan, [facility] [address] [facility] [id number] [address] [place] [phone] Jan, [facility] [address] [id number] [address] [place] [phone] Jan, [facility] [address] [id number] [address] [place] [phone] Jan, [facility] [address] [id number] [address] [place] [phone] Jan, [facility] [address] [id number] [address] [place] [phone] Dec, [facility] [address] [id number] [address] [place] [phone] Dec, [facility] [address] [id number] [address] [place] [id number] Dec, [facility] [address] [id number] [address] [place] [phone] Dec, [facility] [facility] [address] [id number] [address] [place] [id number] November, [facility] [address] [id number] [address] [place] [id number] November, [facility] [address] [facility] [id number] [address] [place] [address] November, Shortness of breath 786.05 [facility] [address] [id number] [address] [place] [address] November, Rheumatoid arthritis 714.0 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 [address] [id number] [address] [place] [address] November, Neuropathy 355.9 ; Insomnia 780.52 ; Dysthymia 300.4 ; Shortness of breath 786.05 ; Rheumatoid arthritis 714.[address] [facility] [address] [id number] [address] [place] [address] November, [facility] [address] [id number] [address] [place] [address] November, [facility] [address] [id number] [address] [place] [address] Oct, [facility] [address] [id number] [address] [place] [id number] Oct, [facility] [address] [id number] [address] [place] [address] Oct, [facility] [address] [id number] [address] [place] [id number] Oct, [facility] [address] [id number] [address] [place] [address] Sep, [facility] [address] [id number] [address] [place] [address] Sep, [facility] [address] [id number] [address] [place] [address] Sep, [facility] [address] [id number] [address] [place] [address] Sep, [facility] [address] [id number] [address] [place] [address], [place] [address] Sep, [facility] [address] [id number] [address] [place] [address], [place] [address] Sep, [facility] [address] [id number] [address] [place] [address], [place] [address] Sep, [facility] [address] [id number] [address] [place] [address], [place] [address] Sep, [facility] [address] [id number] [address] [place] [address], [place] [address] Aug, [facility] [address] [id number] [address] [place] [address], [place] [address] Aug, [facility] [address] [id number] [address] [place] [address], [place] [address] Aug, [facility] [address] [id number] [address] [place] [address], [place] [address] Aug, [facility] [address] [id number] [address] [place] [address], [place] [address] Aug, [facility] [address] [id number] [address] [place] [address], [place] [address] Aug, [facility] [address] [id number] [address] [place] [address], [place] [address] Jul, [facility] [address] [id number] [address] [place] [address], [place] [address] Jul, [facility] [address] [id number] [address] [place] [address], [place] [address] Jul, [facility] [address] [id number] [address] [place] [address], [place] [address] Jul, [facility] [address] [id number] [address] [place] [address], [place] [address] Jul, [facility] [address] [id number] [address] [place] [address], [place] [address] Jul, [facility] [address] [id number] [address] [place] [address], [place] [id number] Jul, [facility] [address] [id number] [address] [place] [address], [place] [address] Jul, [facility] [address] [id number] [address] [place] [address], [place] [address] Jul, [facility] [address] [id number] [address] [place] [address], [place] [address] Jul, [facility] [address] [id number] [address] [place] [address], [place] [address] Jun, [facility] [address] [id number] [address] [place] [address], [place] [address] Jun, [facility] [address] [id number] [address] [place] [address], [place] [id number] Jun, [facility] [address] [id number] [address] [place] [address], [place] [address] Jun, [facility] [address] [id number] [address] [place] [address], [place] [address] Jun, [facility] [address] [id number] [address] [place] [address], [place] [address] Jun, [facility] [address] [id number] [address] [place] [address], [place] [address] Jun, [facility] [address] [id number] [address] [place] [address], [place] [address] Jun, [facility] [address] [id number] [address] [place] [address], [place] [address] Jun, [facility] [address] [id number] [address] [place] [address], [place] [address] Jun, [facility] [address] [id number] [address] [place] [address] Jun, [facility] [address] [id number] [address] [place] [address], [place] [address] Jun, [facility] [address] [id number] [address] [place] [address], [place] [address] Jun, [facility] [address] [id number] [address] [place] [address], [place] [address] Jun, [facility] [address] [id number] [address] [place] [address], [place] [address] Jun, [facility] [address] [id number] [address] [place] [address], [place] [address] Jun, [facility] [address] [id number] [address] [place] [address], [place] [address] May, [facility] [address] [id number] [address] [place] [address], [place] [address] May, [facility] [address] [id number] [address] [place] [address], [place] [address] May, [facility] [address] [id number] [address] [place] [address], [place] [address] May, [facility] [address] [id number] [address] [place] [address], [place] [address] May, [facility] [address] [id number] [address] [place] [address] May, [facility] [address] [id number] [address] [place] [id number] May, [facility] [address] [id number] [address] [place] [address] May, [facility] [address] [id number] [address] [place] [address] May, [facility] [address] [id number] [address] [place] [address], [place] [address] Apr, [facility] [address] [id number] [address] [place] [address], [place] [address] 24 Apr, 2014 [facility] [address] [id number] [address] [place] [address], [place] [address] Apr, [facility] [address] [id number] [address] [place] [address], [place] [address] Apr, [facility] [address] [id number] [address] [place] [address], [place] [address] Apr, [facility] [address] [id number] [address] [place] [address], [place] [address] Apr, [facility] [address] [id number] [address] [place] [address], [place] [address] Apr, [facility] [address] [id number] [address] [place] [address], [place] [address] Apr, [facility] [address] [id number] [address] [place] [address], [place] [address] Apr, 2013 [facility] [address] [id number] [address] [place] [address], [place] [address] Apr, [facility] [address] [id number] [address] [place] [address], [place] [address] Apr, [facility] [address] [id number] [address] [place] [address], [place] [address] Apr, [facility] [address] [id number] [address] [place] [address], [place] [address] 22 Mar, 2013 [facility] [address] [id number] [address] [place] [address], [place] [address] 22 Mar, 2013 [facility] [address] [id number] [address] [place] [address], [place] [id number] 19 Mar, 2013 [facility] [address] [id number] [address] [place] [address], [place] [address] 19 Mar, 2013 [facility] [address] [id number] [address] [place] [address], [place] [address] Mar, [facility] [address] [id number] [facility] [place] [address] Mar, [facility] [address] [id number] [facility] [place] [address] Mar, [facility] [address] [id number] [address] [place] [address], [place] [address] Mar, [facility] [address] [id number] [address] [place] [address], [place] [address] Mar, [facility] [address] [id number] [address] [place] [address], [place] [address] Mar, [facility] [address] [id number] [address] [place] [address], [place] [address] Feb, [facility] [address] [id number] [address] [place] [address], [place] [address] Feb, [facility] [address] [id number] [address] [place] [address], [place] [address] Feb, [facility] [address] [id number] [address] [place] [address], [place] [address] Feb, [facility] [address] [id number] [address] [place] [address], [place] [address] Feb, [facility] [address] [id number] [address] [place] [address], [place] [address] Feb, [facility] [address] [id number] [address] [place] [address], [place] [address] Feb, [facility] [address] [id number] [address] [place] [address], [place] [address] Feb, [facility] [address] [id number] [address] [place] [address], [place] [address] Feb, [facility] [address] [id number] [address] [place] [address], [place] [address] Feb, [facility] [address] [id number] [address] [place] [address], [place] [address] Feb, [facility] [address] [id number] [facility] [place] [address] Feb, [facility] [address] [id number] [address] [place] [address], [place] [address] Feb, [facility] [address] [id number] [address] [place] [address], [place] [address] Feb, [facility] [address] [id number] [address] [place] [address], [place] [address] Feb, [facility] [address] [id number] [address] [place] [address], [place] [id number] Feb, [facility] [address] [id number] [address] [place] [address], [place] [address] Jan, [facility] [address] [id number] [address] [place] [address], [place] [address] Jan, [facility] [address] [id number] [address] [place] [address], [place] [address] Jan, [facility] [address] [id number] [address] [place] [address], [place] [address] Jan, [facility] [address] [id number] [address] [place] [address], [place] [address] Jan, [facility] [address] [id number] [address] [place] [address], [place] [address] Jan, [facility] [address] [id number] [address] [place] [address], [place] [address] Dec, [facility] [address] [id number] [address] [place] [address], [place] [address] Dec, [facility] [address] [id number] [address] [place] [address], [place] [address] Dec, [facility] [address] [id number] [address] [place] [address], [place] [address] Dec, [facility] [address] [id number] [facility] [place] [address] Dec, [facility] [address] [id number] [facility] [place] [address] Dec, [facility] [address] [id number] [address] [place] [address], [place] [address] Dec, [facility] [address] [id number] [address] [place] [address], [place] [address] Dec, [facility] [address] [id number] [address] [place] [address], [place] [address] November, [facility] [address] [id number] [address] [place] [address], [place] [address] November, [facility] [address] [id number] [address] [place] [address], [place] [address] November, [facility] [address] [id number] [address] [place] [address], [place] [address] November, [facility] [address] [id number] [address] [place] [address], [place] [address] November, [facility] [address] [id number] [address] [place] [address], [place] [address] November, [facility] [address] [id number] [address] [place] [address], [place] [address] Oct, [facility] [address] [id number] [address] [place] [address], [place] [address] Oct, [facility] [address] [id number] [address] [place] [address], [place] [address] Oct, [facility] [address] [id number] [address] [place] [address], [place] [address] Oct, [facility] [address] [id number] [address] [place] [address], [place] [address] Sep, [facility] [address] [id number] [address] [place] [address], [place] [address] Sep, [facility] [address] [id number] [facility] [place] [address] Sep, [facility] [address] [id number] [address] [place] [address], [place] [address] Sep, [facility] [address] [id number] [address] [place] [address], [place] [address] Sep, [facility] [address] [id number] [address] [place] [address], [place] [address] Sep, [facility] [address] [id number] [address] [place] [address], [place] [address] Aug, [facility] [address] [id number] [address] [place] [address], [place] [address] Aug, [facility] [address] [id number] [address] [place] [address], [place] [address] Aug, [facility] [address] [id number] [address] [place] [address], [place] [address] Aug, [facility] [address] [id number] [address] [place] [address], [place] [address] Aug, [facility] [address] [id number] [address] [place] [address], [place] [address] Aug, [facility] [address] [id number] [address] [place] [address], [place] [address] Jul, [facility] [address] [id number] [address] [place] [address], [place] [address] Jul, [facility] [address] [id number] [address] [place] [address], [place] [address] Jul, [facility] [address] [id number] [address] [place] [address], [place] [address] Jul, [facility] [address] [id number] [address] [place] [address], [place] [address] Jul, [facility] [address] [id number] [address] [place] [address], [place] [address] Jul, [facility] [address] [id number] [address] [place] [address], [place] [address] Jul, [facility] [address] [id number] [address] [place] [address], [place] [address] Jul, [facility] [address] [id number] [address] [place] [address], [place] [address] Jul, [facility] [address] [id number] [address] [place] [address], [place] [address] Jul, [facility] [address] [id number] [address] [place] [address], [place] [id number] Jul, [facility] [address] [id number] [address] [place] [address], [place] [address] Jul, [facility] [address] [id number] [address] [place] [address], [place] [address] Jul, [facility] [address] [id number] [address] [place] [address], [place] [id number] Jul, [facility] [address] [id number] [address] [place] [address], [place] [address] Jul, [facility] [address] [id number] [address] [place] [address], [place] [id number] Jun, [facility] [address] [id number] [address] [place] [address], [place] [phone] Jun, [facility] [address] [id number] [address] [place] [address], [place] [id number] Jun, [facility] [address] [id number] [address] [place] [address], [place] [phone] Jun, [facility] [address] [id number] [address] [place] [address], [place] [phone] May, [facility] [address] [id number] [address] [place] [address] [address] May, [facility] [address] [facility] [id number] [place] [id number] May, [facility] [address] [facility] [id number] [address] [place] [phone] May, [facility] [address] [facility] [id number] [address] [place] [phone] May, [facility] [address] [facility] [id number] [address] [place] [phone] May, [facility] [address] [facility] [id number] [address] [place] [phone] May, [facility] [address] [facility] [id number] [address] [place] [id number] May, [facility] [address] [facility] [id number] [address] [place] [id number] May, [facility] [address] [facility] [id number] [place] [id number] May, [facility] [address] [facility] [id number] [address] [place] [phone] May, [facility] [address] [facility] [id number] [place] [id number] May, [facility] [address] [facility] [id number] [address] [place] [phone] May, [facility] [address] [facility] [id number] [place] [id number] May, [facility] [address] [facility] [id number] [address] [place] [phone] May, IMMUNIZATIONS No Known Immunizations SOCIAL HISTORY [...] Diarrhea, leukocytosis--ryan[facility] 01/08/16 Hospitalization History pseudomemranous colitis, sepsis--[facility] 04/21/2016 Hospitalization History C Diff--[facility] 05/10/2016 Hospitalization History sepsis, pneumonia, diarrhea--[facility] Hospitalization History recurrent cdiff, pneumonia-[facility] Hospitalization History sepsis,pneumonia- [facility] 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
--- OUTSIDE RECORDS SUMMARY | 2019-11-07 10:16 | XMS REPORT ---
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 237402966 Problem COPD (chronic obstructive pulmonary disease) J44.9 Active 67291119 Problem Hypertension I10 Active 1771724 3 Problem Primary insomnia F51.01 Active 397 2004 Problem Hx of Clostridium difficile infection Z86.19 Active 199724726 Problem Chronic obstructive pulmon disease w acute lower resp infc t J44.0 Active 149829489 Problem History of arthroplasty of right knee Z96.651 Active 648967255 Problem Leg pain, left M79.605 Active 16811 7008 Problem Status post partial amputation of left foot Z89.43 2 Active 749140075 Problem Edema R60.9 Active 490708088 Problem Tobacco abuse, 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 Ac tive 297211465 Problem Anxiety F41.9 Active 23144693 Problem Chronic pain syndrome G89.4 Active 513996199 Problem Anemia, unspecified type D64.9 Activ e 611186001 Problem Depression, unspecified depression type F32.9 Active 47814583 Problem Other chronic pain G89.29 Active 8 7453538 Problem Iron deficiency anemia, unspecified iron deficiency an emia type D50.9 Active 62960924 Problem Insomnia, unspecified G47.00 Active 910135598 Problem Seasonal allergic rhinitis due to pollen J30.1 Active 63521594 Problem History of oral cancer Z85.819 Active 266613841 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 36 3475762 Problem Atrial fibrillation I48.91 Active 64676108 Problem Chronic obstructive pulmonary disease with (acute) exa cerbation J44.1 Active 358246332 Problem Rheumatoid arthritis M06.9 Active 07681999 Problem Dysthymia F34.1 Active 97277273 Problem Neuropathy G62.9 Active 825189404 Problem Rheumatoid arthritis with po sitive rheumatoid factor, involving unspecified site M05.9 Active 11327905 Problem Hemiplegia and hemiparesis f ollowing cerebral infarction affecting right dominant side I69.351 Active 192526727 Problem Cancer of neck C76.0 Active 94187 9000 ALLERGIES No Information ENCOUNTERS Encounter Location Date Diagnosis [place] [address] [address] November, [place] [address] [address] Sep, [place] [address] [address] 28 Aug, 2019 Chronic pain syndrome G89.4 [place] [address] [address] [place] [address] 19 Aug, 2019 Chronic obstructive pulmonar y disease with (acute) exacerbation J44.1 [place] [address] [address] 12 Aug, 2019 Single subsegmental pulmonary embolism w ithout acute cor pulmonale I26.93 ; Rheumatoid arthritis with positive rheumatoid factor, involving unspecified site M05.9 ; Chronic pain syndrome G89.4 ; Leg pain, left M79.605 and 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 [place] [address] [address] Aug, [place] [address] [address] 11 Aug, 2019 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 [place] [address] [address] 07 Aug, 2019 Chronic pain syndrome G89.4 [facility] [address] [place] [id number] [place] [address] Jul, Primary insomnia F51.01 [facility] [address] [place] [id number] [place] [address] Jul, Chronic pain syndrome G89.4 [facility] [address] [place] [address] [id number] [place] [address] Jul, [facility] [address] [address] Jul, [facility] [address] [address] Jul, Rheumatoid arthritis with positive rheum atoid factor, involving unspecified site M05.9 and Chronic pain syndrome G89.4 [facility] [address] [place] [id number] [place] [address] Jul, [facility] [address] [address] Jun, Rheumatoid arthritis with positive rheum atoid factor, involving unspecified site M05.9 [place] [address] [address] Jun, Chronic pain syndrome G89.4 ; Rheumatoid arthritis with positive rheumatoid factor, involving unspecified site M05.9 and Anxiety F41.9 [facility] [address] [place] [id number] [place] [address] Jun, [facility] [address] [address] Jun, Hemorrhoids, unspecified hemorrhoid type K64.9 [facility] [address] [address] Jun, Hemorrhoids, unspecified hemorrhoid type K64.9 ; Cancer of neck C76.0 and Drug-induced constipation K59.03 [facility] [address] [place] [address] [id number] [place] [address] Jun, [facility] [address] [place] [id number] [place] [address] Jun, [facility] [address] [address] Jun, Rheumatoid arthritis with positive rheum atoid factor, involving unspecified site M05.9 [facility] [address] [place] [id number] [place] [address] May, [facility] [address] [address] May, Rheumatoid arthritis with positive rheum atoid factor, involving unspecified site M05.9 [place] [address] [address] Apr, Primary insomnia F51.01 [place] [address] [address] Apr, Rheumatoid arthritis with positive rheum atoid factor, involving unspecified site M05.9 [place] [address] [address] Mar, [facility] [address] [address] Mar, [place] [address] [address] Mar, Rheumatoid arthritis with positive rheum atoid factor, involving unspecified site M05.9 ; Atrial fibrillation I48.91 ; Chronic pain syndrome G89.4 ; Iron deficiency anemia, unspecified iron deficiency anemia type D50.9 and Hemiplegia and hemiparesis following cerebral infarction affecting right dominant side I69.351 [place] [address] [address] Mar, Chronic pain syndrome G89.4 and Primary insomnia F51.01 [facility] [address] [address] Mar, Rheumatoid arthritis with positive rheum atoid factor, involving unspecified site M05.9 [place] [address] [address] Feb, Rheumatoid arthritis with positive rheum atoid factor, involving unspecified site M05.9 ; Chronic pain syndrome G89.4 ; Atrial fibrillation I48.91 ; Iron deficiency anemia, unspecified iron deficiency anemia type D50.9 ; Hemiplegia and hemiparesis following cerebral infarction affecting right dominant side I69.351 and Primary insomnia F51.01 [facility] [address] [address] Feb, Chronic pain syndrome G89.4 [facility] [address] [address] Jan, Chronic pain syndrome G89.4 [facility] [address] [address] Jan, [facility] [address] [address] Jan, [facility] [address] [address] Dec, [facility] [address] [address] Dec, Chronic pain syndrome G89.4 [facility] [address] [address] Dec, [facility] [address] [address] November, Chronic pain syndrome G89.4 [facility] [address] [address] Oct, Chronic pain syndrome G89.4 [facility] [address] [address] Oct, [facility] [address] [address] Sep, Chronic pain syndrome G89.4 [facility] [address] [address] Sep, Leg pain, left M79.605 ; Right leg pain M79.604 and Reactive cervical nodes R59.0 [facility] [address] [place] [id number] [place] [address] 14 Sep, 2018 [facility] [address] [address] Sep, Neuropathy G62.9 [facility] [address] [id number] [place] [id number] Sep, [facility] [address] [place] [id number] [place] [address] Sep, Lymphadenopathy of left cervical region R59.0 [facility] [address] [address] Sep, Lymphadenopathy of left cervical region R59.0 and Neuropathy G62.9 [facility] [address] [place] [id number] [place] [address] Aug, Chronic pain syndrome G89.4 [facility] [address] [place] [id number] [place] [address] Aug, [facility] [address] [address] 04 Aug, 2018 Peripheral vascular disease, unspecified I73.9 ; Other chronic pain G89.29 ; Chronic obstructive pulmon disease w acute lower resp infct J44.0 and Primary insomnia F51.01 [facility] [address] [address] Aug, Chronic pain syndrome G89.4 [facility] [address] [place] [id number] [place] [address] Jul, Chronic pain syndrome G89.4 [facility] [address] [address] Jun, Chronic pain syndrome G89.4 [facility] [address] [place] [id number] [place] [address] May, Chronic pain syndrome G89.4 [facility] [address] [facility] [id number] [address] [place] [address] Apr, Cough R05 and Viral illness B34.9 [facility] [address] [place] [id number] [place] [address] Apr, Encounter for immunization Z23 [facility] [address] [place] [id number] [place] [address] 16 Apr, 2018 Chronic pain syndrome G89.4 [facility] [address] [facility] [id number] [address] [place] [address] Apr, Left acute otitis media H66. 92 [facility] [address] [place] [id number] [place] [address] Mar, Rheumatoid arthritis M06.9 ; Other chron ic pain G89.29 ; History of oral cancer Z85.819 and History of tachycardia Z87.898 [place] [address] [address] Mar, Chronic pain syndrome G89.4 [facility] [address] [address] Feb, Chronic pain syndrome G89.4 [facility] [address] [address] Feb, Chronic pain syndrome G89.4 [facility] [address] [address] Jan, Chronic pain syndrome G89.4 [place] [address] [address] Jan, [facility] [address] [address] Dec, Chronic pain syndrome G89.4 [facility] [address] [address] November, Chronic pain syndrome G89.4 [facility] [address] [address] November, [facility] [address] [address] Oct, Chronic pain syndrome G89.4 [facility] [address] [address] Oct, [facility] [address] [address] Oct, Chronic pain syndrome G89.4 [facility] [address] [address] Oct, [facility] [address] [address] Oct, [facility] [address] [address] Sep, Left upper quadrant pain R10.12 ; Chroni c pain syndrome G89.4 ; Left lower quadrant pain R10.32 ; Other chronic pain G89.29 ; Sacrococcygeal disorders, not elsewhere classified M53.3 and Seasonal allergic rhinitis due to pollen J30.1 [facility] [address] [address] Sep, Chronic pain syndrome G89.4 [facility] [address] [address] Sep, [facility] [address] [address] Aug, Chronic pain syndrome G89.4 [facility] [address] [address] Aug, [facility] [address] [address] Aug, Insomnia, unspecified G47.00 [facility] [address] [address] Jul, [facility] [address] [address] Jul, [facility] [address] [address] Jul, Chronic pain syndrome G89.4 [place] [address] [address] Jun, Chronic pain syndrome G89.4 [facility] [address] [address] Jun, Chronic pain syndrome G89.4 [facility] [address] [address] May, [place] [address] [address] May, Shortness of breath R06.02 ; Peripheral vascular disease, unspecified I73.9 ; Pain in right knee M25.561 ; Other chronic pain G89.29 ; Chest wall pain R07.89 ; Chronic pain syndrome G89.4 ; Primary insomnia F51.01 and Ear pain, left H92.02 [place] [address] [address] May, Anxiety F41.9 [place] [address] [address] Apr, Pneumonia due to infectious organism, un specified laterality, unspecified part of lung J18.9 ; Hypoxia R09.02 ; Bradycardia R00.1 ; History of Clostridium difficile Z87.19 and Primary insomnia F51.01 [place] [address] [address] Apr, Anxiety F41.9 [place] [address] [address] Apr, [place] [address] [address] Mar, Anxiety F41.9 [place] [address] [address] Feb, [place] [address] [address] Feb, [place] [address] [address] Feb, Abnormal finding on urinalysis R82.90 [facility] [address] [address] Feb, [place] [address] [address] Feb, Shortness of breath R06.02 ; Tachycardia R00.0 ; Cough R05 ; Ill feeling R68.89 and Abnormal finding on urinalysis R82.90 [place] [address] [address] Feb, Anxiety F41.9 [facility] [address] [facility] [id number] [place] [address] Feb, Sore throat J02.9 and Acute diffuse otitis externa of left ear H60.312 [place] [address] [address] Jan, [place] [address] [address] Jan, [place] [address] [id number] [id number] Jan, [place] [address] [address] Jan, Depression, unspecified depression type F32.9 ; Chronic bronchitis, unspecified chronic bronchitis type J42 ; Chronic pain syndrome G89.4 and Anxiety F41.9 [facility] [address] [address] Jan, [place] [address] [address] Jan, [place] [address] [address] Jan, [place] [address] [place] [id number] [place] [id number] Jan, Chronic pain syndrome G89.4 [facility] [address] [place] [id number] Dec History of right knee surgery Z98.890 [place] [address] [address] Dec, [place] [address] [address] Dec, Chronic pain syndrome G89.4 [place] [address] [address] November, Anxiety F41.9 [facility] N [facility] [id number] [address] [place] [address] November, Acute cystitis without hemat uria N30.00 [facility] [place] [address] [place] [id number] [place] [address] November, Fever, unspecified fever cau se R50.9 and Acute cystitis without hematuria N30.00 [place] [address] [address] November, Chronic pain syndrome G89.4 [place] [address] [address] Oct, Anxiety F41.9 [place] [address] [address] Oct, Chronic pain syndrome G89.4 [place] [address] [address] Oct, Chronic pain syndrome G89.4 [place] [address] [address] Oct, [place] [address] [address] Oct, Chronic pain syndrome G89.4 ; Pain in ri ght knee M25.561 ; History of Clostridium difficile Z87.19 ; Iron deficiency anemia, unspecified iron deficiency anemia type D50.9 ; Peripheral vascular disease, unspecified I73.9 and Atrial fibrillation I48.91 [place] [address] [address] Oct, [facility] [address] [place] [id number] [place] [address] Oct, Chronic pain syndrome G89.4 [facility] [address] [place] [address] [id number] [place] [address] Sep, [facility] [address] [place] [id number] [place] [address] Sep, Depression, unspecified depression type F32.9 ; Chronic bronchitis, unspecified chronic bronchitis type J42 ; Chronic pain syndrome G89.4 and Anxiety F41.9 [facility] [address] [place] [id number] Sep History of Clostridium difficile infection Z86.19 and History of stroke Z86.73 [facility] [address] [place] [id number] [place] [id number] Sep, Anxiety F41.9 [facility] [address] [address] Sep, Chronic pain syndrome G89.4 [facility] [address] [place] [id number] [place] [address] Sep, [facility] [address] [id number] [id number] Sep, [facility] [address] [address] Aug, Anxiety F41.9 [facility] [address] [address] Aug, Anxiety F41.9 [facility] [address] [address] 16 Aug, 2016 [facility] [address] [address] 14 Aug, 2016 Acute knee pain, unspecified laterality M25.569 [facility] [address] [address] 13 Aug, 2016 [facility] [address] [id number] [place] [address] Aug, Chronic pain syndrome G89.4 [facility] [address] [place] [id number] [place] [address] Aug, [facility] [address] [id number] [place] [address] Aug, [facility] [address] [place] [id number] [place] [address] Jul, [facility] [address] [address] Jul, Anxiety F41.9 [facility] [address] [place] [id number] [place] [address] Jul, Clostridium difficile diarrhea A04.7 [facility] [address] [place] [id number] Jul Clostridium difficile diarrhea A04.7 ; Chronic pain syndrome G89.4 ; Chronic obstructive pulmon disease w acute lower resp infct J44.0 and Pain in right knee M25.561 [facility] [address] [id number] [id number] Jul, [facility] [address] [facility] [id number] [address] [place] [address] Jul, Anxiety F41.9 and Chronic pa in syndrome G89.4 [facility] [address] [id number] [place] [address] Jun, Anxiety F41.9 [facility] [address] [id number] [place] [address] Jun, Rheumatoid arthritis 714.0 [facility] [address] [place] [id number] [place] [address] Jun, Chronic pain syndrome G89.4 [facility] [address] [place] [id number] [place] [address] Jun, [facility] [address] [address] Jun, [facility] [address] [place] [id number] [place] [address] Jun, History of pneumonia Z87.01 and History of Clostridium difficile Z87.19 [facility] [address] [place] [id number] [place] [address] Jun, [facility] [address] [place] [id number] [place] [address] May, [facility] [address] [address] May, Anxiety F41.9 [place] [address] [address] May, Chronic pain syndrome G89.4 [place] [address] [place] [id number] [place] [address] 15 May, 2016 Chronic bronchitis, unspecified chronic bronchitis type J42 [place] [address] [place] [id number] [place] [address] May, [place] [address] [place] [id number] [place] [address] May, C. difficile diarrhea A04.7 ; Peripheral edema R60.9 ; COPD (chronic obstructive pulmonary disease) J44.9 ; Rheumatoid arthritis, involving unspecified site, unspecified rheumatoid factor presence M06.9 ; Pain in right knee M25.561 ; Pain in left knee M25.562 and Other chronic pain G89.29 [place] [address] [place] [id number] [place] [address] May, [place] [address] [place] [id number] [place] [address] May, [place] [address] [place] [id number] [place] [address] May, Anxiety F41.9 [facility] [address] [place] [id number] [place] [address] Apr, [place] [address] [address] Apr, Chronic pain syndrome G89.4 [place] [address] [address] Apr, Leg pain, left M79.605 [facility] [address] [address] 14 Apr, 2016 [place] [address] [address] Apr, [place] [address] [address] Apr, [place] [address] [address] Mar, Chronic pain syndrome G89.4 [place] [address] [address] Mar, Acute frontal sinusitis, recurrence not specified J01.10 [place] [address] [address] 20 Mar, 2016 Iron deficiency anemia, unspecified iron deficiency anemia type D50.9 ; Rheumatoid arthritis with positive rheumatoid factor, involving unspecified site M05.9 and Depression, unspecified depression type F32.9 [place] [address] [address] Mar, Iron deficiency anemia, unspecified iron deficiency anemia type D50.9 ; Depression, unspecified depression type F32.9 and Rheumatoid arthritis with positive rheumatoid factor, involving unspecified site M05.9 [place] [address] [address] Mar, [place] [address] [address] Mar, [place] [address] [address] Feb, Chronic pain syndrome G89.4 [place] [address] [address] Feb, Status post partial amputation of left f oot Z89.432 ; Status post CVA Z86.73 ; Hemiplegia G81.90 and Anemia, unspecified type D64.9 [place] [address] [address] Feb, [place] [address] [address] Feb, Anemia, unspecified type D64.9 [place] [address] [address] Feb, [place] [address] [address] Feb, Iron deficiency anemia, unspecified iron deficiency anemia type D50.9 [place] [address] [address] Feb, [place] [address] [address] Feb, Chronic bronchitis, unspecified chronic bronchitis type J42 [place] [address] [address] Feb, Iron deficiency anemia, unspecified iron deficiency anemia type D50.9 [place] [address] [address] Feb, Chronic pain syndrome G89.4 [place] [address] [address] Feb, Anemia, unspecified type D64.9 and Hypox ia R09.02 [place] [address] [address] Feb, Anemia, unspecified type D64.9 [place] [address] [address] Jan, [place] [address] [address] Jan, Anemia, unspecified type D64.9 [place] [address] [address] Jan, [facility] [address] [address] Jan, Anemia, unspecified type D64.9 [facility] [address] [address] Jan, Anemia, unspecified type D64.9 [facility] [address] [address] [address] Jan, [facility] [address] [address] Jan, Anemia, unspecified type D64.9 [facility] [address] [address] Jan, [facility] [address] [address] Jan, [facility] [address] [address] Jan, Chronic pain syndrome G89.4 [facility] [address] [address] Jan, Anemia, unspecified type D64.9 [facility] [address] [address] Jan, Dysthymia F34.1 ; Cervicalgia M54.2 ; Fa tigue, unspecified type R53.83 and Depression, unspecified depression type F32.9 [facility] [address] [address] Dec, [facility] [address] [address] Dec, Anxiety F41.9 [facility] [address] [address] Dec, Chronic pain syndrome G89.4 [facility] [address] [address] November, [place] [id number] [place] [address] November, Edema R60.9 and Dizziness R42 [facility] [address] [address] November, [facility] [address] [address] November, [facility] [address] [address] November, COPD (chronic obstructive pulmonary dise ase) J44.9 ; Increased tracheal secretions J39.8 and Edema R60.9 [facility] [address] [place] [address] Oct, [facility] [address] [place] [address] Oct, Shortness of breath R06.02 a nd Edema R60.9 [place] [address] [address] Oct, Chronic bronchitis, unspecified chronic bronchitis type J42 ; Peripheral vascular disease, unspecified I73.9 ; Rheumatoid arthritis M06.9 and Atrial fibrillation I48.91 [facility] [id number] [place] [address] Oct, [facility] [address] [address] Oct, [facility] [address] [address] Oct, [facility] [address] [address] Oct, [facility] [address] [place] [address] Oct, COPD exacerbation J44.1 [facility] [address] [address] Sep, [facility] [address] [place] [address] Sep, [facility] [address] [address] Sep, [facility] [address] [address] Aug, [facility] [address] [address] Aug, 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 and PVD (peripher al vascular disease) I73.9 [facility] [address] [address] Aug, Bronchitis J40 ; COPD (chronic obstructi ve pulmonary disease) J44.9 and Dysthymia F34.1 [facility] [address] [address] Aug, [facility] [address] [address] Jul, [facility] [address] [address] Jul, [facility] [address] [address] Jul, [facility] [address] [address] Jun, [facility] [address] [address] Jun, [facility] [address] [address] Jun, Peripheral vascular disease I73.9 [facility] [address] [address] Jun, [facility] [address] [address] Jun, [facility] [address] [address] Jun, Leg pain, left M79.605 ; Dysphagia, unsp ecified dysphagia R13.10 ; Insomnia, unspecified type G47.00 ; PVD (peripheral vascular disease) I73.9 and 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 [facility] [id number] [place] [address] May, [facility] [address] [address] May, [facility] [address] [address] May, [facility] [address] [address] May, [facility] [address] [address] May, [facility] [address] [address] Apr, [facility] [address] [address] Apr, [facility] [address] [address] Mar, [facility] [address] [address] Mar, [facility] [address] [address] Feb, [facility] [address] [address] Feb, Nicotine abuse 305.1 ; Arthralgia 719.40 and 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 [facility] [address] [address] Feb, [facility] [address] [address] Jan, [facility] [address] [address] Jan, [facility] [id number] [place] [address] Jan, [facility] [id number] [place] [address] Jan, [facility] [id number] [place] [address] Jan, 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 ; Rheumatoid arth ritis 714.0 ; Hypertension 401.9 ; GERD (gastroesophageal reflux disease) 530.81 ; Nicotine addiction 305.1 and Leukocytosis 288.60 [facility] [id number] [place] [address] Jan, [facility] [id number] [place] [address] Jan, [facility] [id number] [place] [address] Jan, [facility] [id number] [place] [address] Jan, [facility] [id number] [place] [address] Jan, [facility] [id number] [place] [address] Dec, [facility] [id number] [place] [address] Dec, [facility] [id number] [place] [address] Dec, [facility] [id number] [place] [address] Dec, [facility] [id number] [place] [address] November, [facility] [id number] [place] [address] November, [facility] [id number] [place] [address] November, Shortness of breath 786.05 [facility] [id number] [place] [address] November, Rheumatoid arthritis 714.0 [facility] [address] [address] November, 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 [facility] [id number] [place] [address] November, Neuropathy 355.9 ; Insomnia 780.52 ; Dys thymia 300.4 ; Shortness of breath 786.05 ; Rheumatoid arthritis 714.0 and Nausea 787.02 [facility] [id number] [place] [address] November, [facility] [address] [address] November, [facility] [id number] [place] [address] Oct, [facility] [address] [address] Oct, [facility] [id number] [place] [address] Oct, [facility] [address] [address] Oct, [facility] [address] [address] Sep, [facility] [id number] [place] [address] Sep, [facility] [id number] [place] [address] Sep, [facility] [address] [address] Sep, [facility] [id number] [place] [address] Sep, [facility] [address] [address] Sep, [facility] [place] [facility] [address] [id number] [place] [address] Sep, [facility] [place] [facility] [address] [id number] [place] [address] Sep, [facility] [place] [facility] [address] [id number] [place] [address] Aug, [facility] [place] [facility] [address] [id number] [place] [address] Aug, [facility] [place] [facility] [address] [id number] [place] [address] Aug, [facility] [place] [facility] [address] [id number] [place] [address] Aug, [facility] [place] [facility] [address] [id number] [place] [address] Aug, [facility] [place] [facility] [address] [id number] [place] [address] Aug, [facility] [place] [facility] [address] [id number] [place] [address] Jul, [facility] [place] [facility] [address] [id number] [place] [address] Jul, [facility] [place] [facility] [address] [id number] [place] [address] Jul, [facility] [place] [facility] [address] [id number] [place] [address] Jul, [facility] [place] [facility] [address] [id number] [place] [address] Jul, [facility] [place] [facility] [address] [id number] [place] [address] Jul, [facility] [place] [facility] [address] [id number] [place] [address] Jul, [facility] [place] [facility] [address] [id number] [place] [address] Jul, [facility] [place] [facility] [address] [id number] [place] [address] Jul, [facility] [place] [facility] [address] [id number] [place] [address] Jul, [facility] [place] [facility] [address] [facility] [id number] [place] [address] Jun, [facility] [place] [facility] [address] [id number] [place] [address] Jun, [facility] [place] [facility] [address] [id number] [place] [address] Jun, [facility] [place] [facility] [address] [facility] [id number] [place] [address] Jun, [facility] [place] [facility] [address] [id number] [place] [address] Jun, [facility] [place] [facility] [address] [id number] [place] [address] Jun, [facility] [place] [facility] [address] [id number] [place] [address] Jun, [facility] [place] [facility] [address] [id number] [place] [address] Jun, [facility] [place] [facility] [address] [id number] [place] [address] Jun, [facility] [place] [facility] [address] [id number] [place] [address] Jun, [facility] [place] [facility] [address] [id number] [place] [address] Jun, [facility] [place] [facility] [address] [id number] [place] [address] Jun, [facility] [place] [facility] [address] [id number] [place] [address] Jun, [facility] [place] [facility] [address] [id number] [place] [address] Jun, [facility] [place] [facility] [address] [id number] [place] [address] Jun, [facility] [place] [facility] [address] [id number] [place] [address] Jun, [facility] [place] [facility] [address] [id number] [place] [address] May, [facility] [place] [facility] [address] [id number] [place] [address] May, [facility] [place] [facility] [address] [id number] [place] [address] May, [facility] [place] [facility] [address] [id number] [place] [address] May, [facility] [place] [facility] [address] [id number] [place] [address] May, [facility] [place] [facility] [address] [id number] [place] [address] May, [facility] [place] [facility] [address] [id number] [place] [address] May, [facility] [place] [facility] [address] [id number] [place] [address] May, [facility] [place] [facility] [address] [id number] [place] [address] May, [facility] [place] [facility] [address] [id number] [place] [address] Apr, [facility] [place] [facility] [address] [id number] [place] [address] Apr, [facility] [place] [facility] [address] [id number] [place] [address] Apr, [facility] [place] [facility] [address] [id number] [place] [address] Apr, [facility] [place] [facility] [id number] [place] [address] Apr, [facility] [place] [facility] [address] [id number] [place] [address] Apr, [facility] [place] [facility] [address] [id number] [place] [address] Apr, [facility] [place] [facility] [address] [facility] [id number] [place] [address] Apr, 2013 [facility] [place] [facility] [address] [id number] [place] [address] Apr, 2013 [facility] [place] [facility] [address] [id number] [place] [address] Apr, [facility] [place] [facility] [address] [id number] [place] [address] Apr, [facility] [place] [facility] [address] [id number] [place] [address] Apr, [facility] [place] [facility] [address] [id number] [place] [address] Mar, [facility] [place] [facility] [address] [id number] [place] [address] Mar, 2013 [facility] [place] [facility] [address] [id number] [place] [address] Mar, 2013 [facility] [place] [facility] [address] [id number] [place] [address] Mar, 2013 [facility] [place] [facility] [address] [id number] [place] [address] Mar, 2013 [facility] [place] [facility] [address] [id number] [place] [address] Mar, 2013 [facility] [place] [facility] [address] [id number] [place] [address] Mar, 2013 [facility] [place] [facility] [address] [id number] [place] [address] Mar, 2013 [facility] [place] [facility] [address] [id number] [place] [address] Mar, 2013 [facility] [place] [facility] [address] [id number] [place] [address] Mar, 2013 [facility] [place] [facility] [address] [id number] [place] [address] Feb, [facility] [place] [facility] [address] [id number] [place] [address] Feb, [facility] [place] [facility] [address] [id number] [facility] [address] Feb, [facility] [place] [facility] [address] [id number] [place] [address] Feb, [facility] [place] [facility] [address] [facility] [id number] [facility] [address] Feb, [facility] [place] [facility] [address] [id number] [place] [address] Feb, [facility] [place] [facility] [address] [id number] [place] [address] Feb, [facility] [place] [facility] [address] [id number] [place] [address] Feb, [facility] [place] [facility] [address] [facility] [id number] [facility] [address] Feb, [facility] [place] [facility] [address] [id number] [facility] [address] Feb, [facility] [place] [facility] [address] [id number] [facility] [address] Feb, [facility] [place] [facility] [address] [id number] [place] [address] Feb, [facility] [place] [facility] [address] [facility] [id number] [place] [address] Feb, [facility] [place] [facility] [address] [id number] [place] [address] Feb, [facility] [place] [facility] [address] [id number] [facility] [address] Feb, [facility] [place] [facility] [address] [id number] [facility] [address] Feb, [facility] [place] [facility] [address] [facility] [id number] [place] [address] Jan, [facility] [place] [facility] [address] [facility] [id number] [facility] [address] Jan, [facility] [place] [facility] [address] [facility] [id number] [place] [address] 16 Jan, 2014 [facility] [place] [facility] [address] [id number] [place] [address] 16 Jan, 2014 [facility] [place] [facility] [address] [facility] [id number] [place] [address] Jan, [facility] [place] [facility] [address] [id number] [place] [address] Jan, [facility] [place] [facility] [address] [facility] [id number] [place] [address] Dec, [facility] [place] [facility] [address] [id number] [place] [address] Dec, [facility] [place] [facility] [address] [id number] [place] [address] Dec, [facility] [place] [facility] [address] [id number] [place] [address] Dec, [facility] [place] [facility] [address] [id number] [place] [address] Dec, [facility] [place] [facility] [address] [facility] [id number] [place] [address] Dec, [facility] [place] [facility] [address] [id number] [place] [address] Dec, [facility] [place] [facility] [address] [id number] [place] [address] Dec, [facility] [place] [facility] [address] [id number] [place] [address] November, [facility] [place] [facility] [address] [facility] [id number] [place] [address] November, [facility] [place] [facility] [address] [id number] [place] [address] November, [facility] [place] [facility] [address] [id number] [place] [address] November, [facility] [place] [facility] [address] [id number] [place] [address] November, [facility] [place] [facility] [address] [id number] [place] [address] November, [facility] [place] [facility] [address] [id number] [place] [address] Oct, [facility] [place] [facility] [address] [id number] [place] [address] Oct, [facility] [place] [facility] [address] [id number] [place] [address] Oct, [facility] [place] [facility] [address] [id number] [place] [address] Oct, [facility] [place] [facility] [address] [id number] [place] [address] Sep, [facility] [place] [facility] [address] [id number] [place] [address] Sep, [facility] [place] [facility] [address] [id number] [place] [address] Sep, [facility] [place] [facility] [address] [id number] [place] [address] Sep, [facility] [place] [facility] [address] [id number] [place] [address] Sep, [facility] [place] [facility] [address] [id number] [place] [address] Sep, [facility] [place] [facility] [address] [id number] [place] [address] Aug, [facility] [place] [facility] [address] [id number] [place] [address] Aug, [facility] [place] [facility] [address] [id number] [place] [address] Aug, [facility] [place] [facility] [address] [id number] [place] [address] Aug, [facility] [place] [facility] [address] [id number] [place] [address] Aug, [facility] [place] [facility] [address] [id number] [place] [address] Aug, [facility] [place] [facility] [address] [facility] [id number] [place] [address] Jul, [facility] [address] [facility] [id number] [place] [address] Jul, [facility] [address] [facility] [id number] [place] [address] Jul, [facility] [id number] [place] [address] Jul, [facility] [id number] [place] [address] Jul, [facility] [id number] [place] [address] Jul, [facility] [id number] [place] [address] Jul, [facility] [id number] [place] [address] Jul, [facility] [address] [id number] [place] [address] Jul, [facility] [id number] [place] [address] Jul, [facility] [address] [id number] [place] [address] Jul, [facility] [address] [facility] [address] [id number] [place] [address] Jul, [facility] [address] [address] [id number] [place] [address] Jul, [facility] [id number] [place] [address] Jul, [facility] [address] [id number] [place] [address] Jul, [facility] [id number] [place] [address] Jun, [facility] [id number] [place] [address] 18 Jun, 2013 [facility] [id number] [place] [address] Jun, [facility] [id number] [place] [address] Jun, [facility] [id number] [place] [address] May, [facility] [id number] [place] [address] May, [facility] [address] [facility] [id number] May, [facility] [id number] [place] [address] May, [facility] [id number] [place] [address] May, [facility] [id number] [place] [address] May, [facility] [id number] [place] [address] May, [facility] [id number] [place] [address] May, [facility] [id number] [place] [address] May, [facility] [address] [facility] [id number] May, [facility] [id number] [place] [address] May, [facility] [address] [facility] [id number] May, [facility] [id number] [place] [address] May, [facility] [address] [facility] [id number] May, [facility] [id number] [place] [address] May, IMMUNIZATIONS No Known Immunizations SOCIAL HISTORY [...] davis 01/08/16 Hospitalization History pseudomemranous colitis, sepsis--[facility] 04/21/2016 Hospitalization History C Diff--[facility] 05/10/2016 Hospitalization History sepsis, pneumonia, diarrhea--[facility] Hospitalization History recurrent cdiff, pneumonia-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
--- OUTSIDE RECORDS SUMMARY | 2019-11-07 10:16 | XMS REPORT ---
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 901696834 Problem COPD (chronic obstructive pulmonary disease) J44.9 Active 93227974 Problem Hypertension I10 Active 5708413 3 Problem Primary insomnia F51.01 Active 397 2004 Problem Hx of Clostridium difficile infection Z86.19 Active 237277647 Problem Chronic obstructive pulmon disease w acute lower resp infc t J44.0 Active 199296639 Problem History of arthroplasty of right knee Z96.651 Active 472210768 Problem Leg pain, left M79.605 Active 87734 7008 Problem Status post partial amputation of left foot Z89.43 2 Active 098637650 Problem Edema R60.9 Active 118773435 Problem Tobacco abuse, 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 Ac tive 157074227 Problem Anxiety F41.9 Active 64352025 Problem Chronic pain syndrome G89.4 Active 536343433 Problem Anemia, unspecified type D64.9 Activ e 493840143 Problem Depression, unspecified depression type F32.9 Active 29879423 Problem Other chronic pain G89.29 Active 8 1417320 Problem Iron deficiency anemia, unspecified iron deficiency an emia type D50.9 Active 50724407 Problem Insomnia, unspecified G47.00 Active 216515449 Problem Seasonal allergic rhinitis due to pollen J30.1 Active 71892731 Problem History of oral cancer Z85.819 Active 203666214 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 36 5783629 Problem Atrial fibrillation I48.91 Active 40002003 Problem Chronic obstructive pulmonary disease with (acute) exa cerbation J44.1 Active 938077128 Problem Rheumatoid arthritis M06.9 Active 48006090 Problem Dysthymia F34.1 Active 57465165 Problem Neuropathy G62.9 Active 166575153 Problem Rheumatoid arthritis with po sitive rheumatoid factor, involving unspecified site M05.9 Active 19500239 Problem Hemiplegia and hemiparesis f ollowing cerebral infarction affecting right dominant side I69.351 Active 942850368 Problem Cancer of neck C76.0 Active 53846 9000 ALLERGIES No Information ENCOUNTERS Encounter Location Date Diagnosis [place] [address] [address] November, [place] [address] [address] Sep, [place] [address] [address] 28 Aug, 2019 Chronic pain syndrome G89.4 [place] [address] [place] [address] 19 Aug, 2019 Chronic obstructive pulmonar y disease with (acute) exacerbation J44.1 [place] [address] [address] 12 Aug, 2019 Single subsegmental pulmonary embolism w ithout acute cor pulmonale I26.93 ; Rheumatoid arthritis with positive rheumatoid factor, involving unspecified site M05.9 ; Chronic pain syndrome G89.4 ; Leg pain, left M79.605 and 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 [place] [address] [address] Aug, [place] [address] [address] 11 Aug, 2019 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 [place] [address] [address] 07 Aug, 2019 Chronic pain syndrome G89.4 [facility] [address] [place] [id number] [place] [address] Jul, Primary insomnia F51.01 [facility] [address] [place] [id number] [place] [address] Jul, Chronic pain syndrome G89.4 [facility] [address] [place] [address] [id number] [place] [address] Jul, [facility] [address] [address] Jul, [facility] [address] [address] Jul, Rheumatoid arthritis with positive rheum atoid factor, involving unspecified site M05.9 and Chronic pain syndrome G89.4 [facility] [address] [place] [id number] [place] [address] Jul, [facility] [address] [address] Jun, Rheumatoid arthritis with positive rheum atoid factor, involving unspecified site M05.9 [place] [address] [address] Jun, Chronic pain syndrome G89.4 ; Rheumatoid arthritis with positive rheumatoid factor, involving unspecified site M05.9 and Anxiety F41.9 [facility] [address] [place] [id number] [place] [address] Jun, [facility] [address] [address] Jun, Hemorrhoids, unspecified hemorrhoid type K64.9 [facility] [address] [address] Jun, Hemorrhoids, unspecified hemorrhoid type K64.9 ; Cancer of neck C76.0 and Drug-induced constipation K59.03 [facility] [address] [place] [address] [id number] [place] [address] Jun, [facility] [address] [place] [address] [id number] [place] [address] Jun, [facility] [address] [address] Jun, Rheumatoid arthritis with positive rheum atoid factor, involving unspecified site M05.9 [facility] [address] [place] [id number] [place] [address] May, [facility] [address] [address] May, Rheumatoid arthritis with positive rheum atoid factor, involving unspecified site M05.9 [place] [address] [address] Apr, Primary insomnia F51.01 [place] [address] [address] Apr, Rheumatoid arthritis with positive rheum atoid factor, involving unspecified site M05.9 [place] [address] [address] Mar, [facility] [address] [address] Mar, [place] [address] [address] Mar, Rheumatoid arthritis with positive rheum atoid factor, involving unspecified site M05.9 ; Atrial fibrillation I48.91 ; Chronic pain syndrome G89.4 ; Iron deficiency anemia, unspecified iron deficiency anemia type D50.9 and Hemiplegia and hemiparesis following cerebral infarction affecting right dominant side I69.351 [place] [address] [address] Mar, Chronic pain syndrome G89.4 and Primary insomnia F51.01 [facility] [address] [address] Mar, Rheumatoid arthritis with positive rheum atoid factor, involving unspecified site M05.9 [place] [address] [address] Feb, Rheumatoid arthritis with positive rheum atoid factor, involving unspecified site M05.9 ; Chronic pain syndrome G89.4 ; Atrial fibrillation I48.91 ; Iron deficiency anemia, unspecified iron deficiency anemia type D50.9 ; Hemiplegia and hemiparesis following cerebral infarction affecting right dominant side I69.351 and Primary insomnia F51.01 [facility] [address] [address] Feb, Chronic pain syndrome G89.4 [facility] [address] [address] Jan, Chronic pain syndrome G89.4 [facility] [address] [address] Jan, [facility] [address] [address] Jan, [facility] [address] [address] Dec, [facility] [address] [address] Dec, Chronic pain syndrome G89.4 [facility] [address] [address] Dec, [facility] [address] [address] November, Chronic pain syndrome G89.4 [facility] [address] [address] Oct, Chronic pain syndrome G89.4 [facility] [address] [address] Oct, [facility] [address] [address] Sep, Chronic pain syndrome G89.4 [facility] [address] [address] Sep, Leg pain, left M79.605 ; Right leg pain M79.604 and Reactive cervical nodes R59.0 [facility] [address] [place] [address] [id number] [place] [address] 14 Sep, 2018 [facility] [address] [address] Sep, Neuropathy G62.9 [facility] [address] [facility] [place] [id number] Sep, [facility] [address] [place] [id number] [place] [address] Sep, Lymphadenopathy of left cervical region R59.0 [facility] [address] [address] Sep, Lymphadenopathy of left cervical region R59.0 and Neuropathy G62.9 [facility] [address] [place] [id number] [place] [address] Aug, Chronic pain syndrome G89.4 [facility] [address] [place] [id number] [place] [address] Aug, [facility] [address] [address] 04 Aug, 2018 Peripheral vascular disease, unspecified I73.9 ; Other chronic pain G89.29 ; Chronic obstructive pulmon disease w acute lower resp infct J44.0 and Primary insomnia F51.01 [facility] [address] [address] Aug, Chronic pain syndrome G89.4 [facility] [address] [place] [address] [id number] [place] [address] Jul, Chronic pain syndrome G89.4 [facility] [address] [address] Jun, Chronic pain syndrome G89.4 [facility] [address] [place] [id number] [place] [address] May, Chronic pain syndrome G89.4 [facility] [address] [facility] [id number] [address] [place] [address] Apr, Cough R05 and Viral illness B34.9 [facility] [address] [place] [address] [id number] [place] [address] Apr, Encounter for immunization Z23 [facility] [address] [place] [address] [id number] [place] [address] 16 Apr, 2018 Chronic pain syndrome G89.4 [facility] [address] [facility] [id number] [address] [place] [address] Apr, Left acute otitis media H66. 92 [facility] [address] [place] [id number] [place] [address] Mar, Rheumatoid arthritis M06.9 ; Other chron ic pain G89.29 ; History of oral cancer Z85.819 and History of tachycardia Z87.898 [place] [address] [address] Mar, Chronic pain syndrome G89.4 [facility] [address] [address] Feb, Chronic pain syndrome G89.4 [facility] [address] [address] Feb, Chronic pain syndrome G89.4 [facility] [address] [address] Jan, Chronic pain syndrome G89.4 [place] [address] [address] Jan, [facility] [address] [address] Dec, Chronic pain syndrome G89.4 [facility] [address] [address] November, Chronic pain syndrome G89.4 [facility] [address] [address] November, [facility] [address] [address] Oct, Chronic pain syndrome G89.4 [facility] [address] [address] Oct, [facility] [address] [address] Oct, Chronic pain syndrome G89.4 [facility] [address] [address] Oct, [facility] [address] [address] Oct, [facility] [address] [address] Sep, Left upper quadrant pain R10.12 ; Chroni c pain syndrome G89.4 ; Left lower quadrant pain R10.32 ; Other chronic pain G89.29 ; Sacrococcygeal disorders, not elsewhere classified M53.3 and Seasonal allergic rhinitis due to pollen J30.1 [facility] [address] [address] Sep, Chronic pain syndrome G89.4 [facility] [address] [address] Sep, [facility] [address] [address] Aug, Chronic pain syndrome G89.4 [facility] [address] [address] Aug, [facility] [address] [address] Aug, Insomnia, unspecified G47.00 [facility] [address] [address] Jul, [facility] [address] [address] Jul, [facility] [address] [address] Jul, Chronic pain syndrome G89.4 [place] [address] [address] Jun, Chronic pain syndrome G89.4 [facility] [address] [address] Jun, Chronic pain syndrome G89.4 [facility] [address] [address] May, [place] [address] [address] May, Shortness of breath R06.02 ; Peripheral vascular disease, unspecified I73.9 ; Pain in right knee M25.561 ; Other chronic pain G89.29 ; Chest wall pain R07.89 ; Chronic pain syndrome G89.4 ; Primary insomnia F51.01 and Ear pain, left H92.02 [place] [address] [address] May, Anxiety F41.9 [place] [address] [address] Apr, Pneumonia due to infectious organism, un specified laterality, unspecified part of lung J18.9 ; Hypoxia R09.02 ; Bradycardia R00.1 ; History of Clostridium difficile Z87.19 and Primary insomnia F51.01 [place] [address] [address] Apr, Anxiety F41.9 [place] [address] [address] Apr, [place] [address] [address] Mar, Anxiety F41.9 [place] [address] [address] Feb, [place] [address] [address] Feb, [place] [address] [address] Feb, Abnormal finding on urinalysis R82.90 [facility] [address] [address] Feb, [place] [address] [address] Feb, Shortness of breath R06.02 ; Tachycardia R00.0 ; Cough R05 ; Ill feeling R68.89 and Abnormal finding on urinalysis R82.90 [place] [address] [address] Feb, Anxiety F41.9 [facility] IN [facility] [address] [facility] [id number] [place] [address] Feb, Sore throat J02.9 and Acute diffuse otitis externa of left ear H60.312 [place] [address] [address] Jan, [place] [address] [address] Jan, [place] [address] [id number] [id number] Jan, [place] [address] [address] Jan, Depression, unspecified depression type F32.9 ; Chronic bronchitis, unspecified chronic bronchitis type J42 ; Chronic pain syndrome G89.4 and Anxiety F41.9 [facility] [address] [address] Jan, [place] [address] [address] Jan, [place] [address] [address] Jan, [place] [address] [place] [id number] [place] [id number] Jan, Chronic pain syndrome G89.4 [facility] [address] [place] [id number] Dec History of right knee surgery Z98.890 [place] [address] [address] Dec, [place] [address] [address] Dec, Chronic pain syndrome G89.4 [place] [address] [address] November, Anxiety F41.9 [facility] N [facility] [id number] [address] [place] [address] November, Acute cystitis without hemat uria N30.00 [facility] [place] [address] [place] [id number] [place] [address] November, Fever, unspecified fever cau se R50.9 and Acute cystitis without hematuria N30.00 [place] [address] [address] November, Chronic pain syndrome G89.4 [place] [address] [address] Oct, Anxiety F41.9 [place] [address] [address] Oct, Chronic pain syndrome G89.4 [place] [address] [address] Oct, Chronic pain syndrome G89.4 [place] [address] [address] Oct, [place] [address] [address] Oct, Chronic pain syndrome G89.4 ; Pain in ri ght knee M25.561 ; History of Clostridium difficile Z87.19 ; Iron deficiency anemia, unspecified iron deficiency anemia type D50.9 ; Peripheral vascular disease, unspecified I73.9 and Atrial fibrillation I48.91 [place] [address] [address] Oct, [facility] [address] [place] [address] [id number] [place] [address] Oct, Chronic pain syndrome G89.4 [facility] [address] [place] [address] [id number] [place] [address] Sep, [facility] [address] [place] [id number] [place] [address] Sep, Depression, unspecified depression type F32.9 ; Chronic bronchitis, unspecified chronic bronchitis type J42 ; Chronic pain syndrome G89.4 and Anxiety F41.9 [facility] [address] [place] [id number] Sep History of Clostridium difficile infection Z86.19 and History of stroke Z86.73 [facility] [address] [place] [id number] [place] [id number] Sep, Anxiety F41.9 [facility] [address] [address] Sep, Chronic pain syndrome G89.4 [facility] [address] [place] [id number] [place] [address] Sep, [facility] [address] [id number] [id number] Sep, [facility] [address] [address] Aug, Anxiety F41.9 [facility] [address] [address] Aug, Anxiety F41.9 [facility] [address] [address] 16 Aug, 2016 [facility] [address] [address] 14 Aug, 2016 Acute knee pain, unspecified laterality M25.569 [facility] [address] [address] 13 Aug, 2016 [facility] [address] [id number] [place] [address] Aug, Chronic pain syndrome G89.4 [facility] [address] [place] [id number] [place] [address] Aug, [facility] [address] [id number] [place] [address] Aug, [facility] [address] [place] [id number] [place] [address] Jul, [facility] [address] [address] Jul, Anxiety F41.9 [facility] [address] [place] [id number] [place] [address] Jul, Clostridium difficile diarrhea A04.7 [facility] [address] [place] [id number] Jul Clostridium difficile diarrhea A04.7 ; Chronic pain syndrome G89.4 ; Chronic obstructive pulmon disease w acute lower resp infct J44.0 and Pain in right knee M25.561 [facility] [address] [id number] [id number] Jul, [facility] [address] [facility] [id number] [address] [place] [address] Jul, Anxiety F41.9 and Chronic pa in syndrome G89.4 [facility] [address] [id number] [place] [address] Jun, Anxiety F41.9 [facility] [address] [id number] [place] [address] Jun, Rheumatoid arthritis 714.0 [facility] [address] [place] [id number] [place] [address] Jun, Chronic pain syndrome G89.4 [facility] [address] [place] [id number] [place] [address] Jun, [facility] [address] [address] Jun, [facility] [address] [place] [id number] [place] [address] Jun, History of pneumonia Z87.01 and History of Clostridium difficile Z87.19 [facility] [address] [place] [id number] [place] [address] Jun, [facility] [address] [place] [id number] [place] [address] May, [facility] [address] [address] May, Anxiety F41.9 [place] [address] [address] May, Chronic pain syndrome G89.4 [place] [address] [place] [id number] [place] [address] 15 May, 2016 Chronic bronchitis, unspecified chronic bronchitis type J42 [place] [address] [place] [id number] [place] [address] May, [place] [address] [place] [id number] [place] [address] May, C. difficile diarrhea A04.7 ; Peripheral edema R60.9 ; COPD (chronic obstructive pulmonary disease) J44.9 ; Rheumatoid arthritis, involving unspecified site, unspecified rheumatoid factor presence M06.9 ; Pain in right knee M25.561 ; Pain in left knee M25.562 and Other chronic pain G89.29 [place] [address] [place] [id number] [place] [address] May, [place] [address] [place] [id number] [place] [address] May, [place] [address] [place] [id number] [place] [address] May, Anxiety F41.9 [facility] [address] [place] [id number] [place] [address] Apr, [place] [address] [address] Apr, Chronic pain syndrome G89.4 [place] [address] [address] Apr, Leg pain, left M79.605 [facility] [address] [address] 14 Apr, 2016 [place] [address] [address] Apr, [place] [address] [address] Apr, [place] [address] [address] Mar, Chronic pain syndrome G89.4 [place] [address] [address] Mar, Acute frontal sinusitis, recurrence not specified J01.10 [place] [address] [address] 20 Mar, 2016 Iron deficiency anemia, unspecified iron deficiency anemia type D50.9 ; Rheumatoid arthritis with positive rheumatoid factor, involving unspecified site M05.9 and Depression, unspecified depression type F32.9 [place] [address] [address] Mar, Iron deficiency anemia, unspecified iron deficiency anemia type D50.9 ; Depression, unspecified depression type F32.9 and Rheumatoid arthritis with positive rheumatoid factor, involving unspecified site M05.9 [place] [address] [address] Mar, [place] [address] [address] Mar, [place] [address] [address] Feb, Chronic pain syndrome G89.4 [place] [address] [address] Feb, Status post partial amputation of left f oot Z89.432 ; Status post CVA Z86.73 ; Hemiplegia G81.90 and Anemia, unspecified type D64.9 [place] [address] [address] Feb, [place] [address] [address] Feb, Anemia, unspecified type D64.9 [place] [address] [address] Feb, [place] [address] [address] Feb, Iron deficiency anemia, unspecified iron deficiency anemia type D50.9 [place] [address] [address] Feb, [place] [address] [address] Feb, Chronic bronchitis, unspecified chronic bronchitis type J42 [place] [address] [address] Feb, Iron deficiency anemia, unspecified iron deficiency anemia type D50.9 [place] [address] [address] Feb, Chronic pain syndrome G89.4 [place] [address] [address] Feb, Anemia, unspecified type D64.9 and Hypox ia R09.02 [place] [address] [address] Feb, Anemia, unspecified type D64.9 [place] [address] [address] Jan, [place] [address] [address] Jan, Anemia, unspecified type D64.9 [place] [address] [address] Jan, [facility] [address] [address] Jan, Anemia, unspecified type D64.9 [facility] [address] [address] Jan, Anemia, unspecified type D64.9 [facility] [address] [address] Jan, [facility] [address] [address] Jan, Anemia, unspecified type D64.9 [facility] [address] [address] Jan, [facility] [facility] [address] [address] Jan, [facility] [address] [address] Jan, Chronic pain syndrome G89.4 [facility] [address] [address] Jan, Anemia, unspecified type D64.9 [facility] [address] [address] Jan, Dysthymia F34.1 ; Cervicalgia M54.2 ; Fa tigue, unspecified type R53.83 and Depression, unspecified depression type F32.9 [facility] [address] [address] Dec, [facility] [address] [address] Dec, Anxiety F41.9 [facility] [address] [address] Dec, Chronic pain syndrome G89.4 [facility] [address] [address] November, [place] [id number] [place] [address] November, Edema R60.9 and Dizziness R42 [facility] [address] [address] November, [facility] [address] [address] November, [facility] [address] [address] November, COPD (chronic obstructive pulmonary dise ase) J44.9 ; Increased tracheal secretions J39.8 and Edema R60.[address] [facility] [address] [place] [address] Oct, [facility] [address] [place] [address] Oct, Shortness of breath R06.02 a nd Edema R60.9 [place] [address] [address] Oct, Chronic bronchitis, unspecified chronic bronchitis type J42 ; Peripheral vascular disease, unspecified I73.9 ; Rheumatoid arthritis M06.9 and Atrial fibrillation I48.91 [facility] [id number] [place] [address] Oct, [facility] [address] [address] Oct, [facility] [address] [address] Oct, [facility] [address] [address] Oct, [facility] [address] [place] [address] Oct, COPD exacerbation J44.1 [facility] [address] [address] Sep, [facility] [address] [place] [address] Sep, [facility] [address] [address] Sep, [facility] [address] [address] Aug, [facility] [address] [address] Aug, 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 and PVD (peripher al vascular disease) I73.9 [facility] [address] [address] Aug, Bronchitis J40 ; COPD (chronic obstructi ve pulmonary disease) J44.9 and Dysthymia F34.1 [facility] [address] [address] Aug, [facility] [address] [address] Jul, [facility] [address] [address] Jul, [facility] [address] [address] Jul, [facility] [address] [address] Jun, [facility] [address] [address] Jun, [facility] [address] [address] Jun, Peripheral vascular disease I73.9 [facility] [address] [address] Jun, [facility] [address] [address] Jun, [facility] [address] [address] Jun, Leg pain, left M79.605 ; Dysphagia, unsp ecified dysphagia R13.10 ; Insomnia, unspecified type G47.00 ; PVD (peripheral vascular disease) I73.9 and 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 [facility] [id number] [place] [address] May, [facility] [address] [address] May, [facility] [address] [address] May, [facility] [address] [address] May, [facility] [address] [address] May, [facility] [address] [address] Apr, [facility] [address] [address] Apr, [facility] [address] [address] Mar, [facility] [address] [address] Mar, [facility] [address] [address] Feb, [facility] [address] [address] Feb, Nicotine abuse 305.1 ; Arthralgia 719.40 and 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 [facility] [address] [address] Feb, [facility] [address] [address] Jan, [facility] [address] [address] Jan, [facility] [id number] [place] [address] Jan, [facility] [id number] [place] [address] Jan, [facility] [id number] [place] [address] Jan, 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 ; Rheumatoid arth ritis 714.0 ; Hypertension 401.9 ; GERD (gastroesophageal reflux disease) 530.81 ; Nicotine addiction 305.1 and Leukocytosis 288.60 [facility] [id number] [place] [address] Jan, [facility] [id number] [place] [address] Jan, [facility] [id number] [place] [address] Jan, [facility] [id number] [place] [address] Jan, [facility] [id number] [place] [address] Jan, [facility] [id number] [place] [address] Dec, [facility] [id number] [place] [address] Dec, [facility] [id number] [place] [address] Dec, [facility] [id number] [place] [address] Dec, [facility] [id number] [place] [address] November, [facility] [id number] [place] [address] November, [facility] [id number] [place] [address] November, Shortness of breath 786.05 [facility] [id number] [place] [address] November, Rheumatoid arthritis 714.0 [facility] [address] [address] November, 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 [facility] [id number] [place] [address] November, Neuropathy 355.9 ; Insomnia 780.52 ; Dys thymia 300.4 ; Shortness of breath 786.05 ; Rheumatoid arthritis 714.0 and Nausea 787.02 [facility] [id number] [place] [address] November, [facility] [address] [address] November, [facility] [id number] [place] [address] Oct, [facility] [address] [address] Oct, [facility] [id number] [place] [address] Oct, [facility] [address] [address] Oct, [facility] [address] [address] Sep, [facility] [id number] [place] [address] Sep, [facility] [id number] [place] [address] Sep, [facility] [address] [address] Sep, [facility] [id number] [place] [address] Sep, [facility] [address] [address] Sep, [facility] [place] [facility] [address] [id number] [place] [address] Sep, [facility] [place] [facility] [address] [id number] [place] [address] Sep, [facility] [place] [facility] [address] [id number] [place] [address] Aug, [facility] [place] [facility] [address] [id number] [place] [address] Aug, [facility] [place] [facility] [address] [id number] [place] [address] Aug, [facility] [place] [facility] [address] [id number] [place] [address] Aug, [facility] [place] [facility] [address] [id number] [place] [address] Aug, [facility] [place] [facility] [address] [id number] [place] [address] Aug, [facility] [place] [facility] [address] [id number] [place] [address] Jul, [facility] [place] [facility] [address] [id number] [place] [address] Jul, [facility] [place] [facility] [address] [id number] [place] [address] Jul, [facility] [place] [facility] [address] [id number] [place] [address] Jul, [facility] [place] [facility] [address] [id number] [place] [address] Jul, [facility] [place] [facility] [address] [id number] [place] [address] Jul, [facility] [place] [facility] [address] [id number] [place] [address] Jul, [facility] [place] [facility] [address] [id number] [place] [address] Jul, [facility] [place] [facility] [address] [id number] [place] [address] Jul, [facility] [place] [facility] [address] [id number] [place] [address] Jul, [facility] [place] [facility] [address] [facility] [id number] [place] [address] Jun, [facility] [place] [facility] [address] [id number] [place] [address] Jun, [facility] [place] [facility] [address] [id number] [place] [address] Jun, [facility] [place] [facility] [address] [facility] [id number] [place] [address] Jun, [facility] [place] [facility] [address] [id number] [place] [address] Jun, [facility] [place] [facility] [address] [id number] [place] [address] Jun, [facility] [place] [facility] [address] [id number] [place] [address] Jun, [facility] [place] [facility] [address] [id number] [place] [address] Jun, [facility] [place] [facility] [address] [id number] [place] [address] Jun, [facility] [place] [facility] [address] [id number] [place] [address] Jun, [facility] [place] [facility] [address] [id number] [place] [address] Jun, [facility] [place] [facility] [address] [id number] [place] [address] Jun, [facility] [place] [facility] [address] [id number] [place] [address] Jun, [facility] [place] [facility] [address] [id number] [place] [address] Jun, [facility] [place] [facility] [address] [id number] [place] [address] Jun, [facility] [place] [facility] [address] [id number] [place] [address] Jun, [facility] [place] [facility] [address] [id number] [place] [address] May, [facility] [place] [facility] [address] [id number] [place] [address] May, [facility] [place] [facility] [address] [id number] [place] [address] May, [facility] [place] [facility] [address] [id number] [place] [address] May, [facility] [place] [facility] [address] [id number] [place] [address] May, [facility] [place] [facility] [address] [id number] [place] [address] May, [facility] [place] [facility] [address] [id number] [place] [address] May, [facility] [place] [facility] [address] [id number] [place] [address] May, [facility] [place] [facility] [address] [id number] [place] [address] May, [facility] [place] [facility] [address] [id number] [place] [address] Apr, [facility] [place] [facility] [address] [id number] [place] [address] Apr, [facility] [place] [facility] [address] [id number] [place] [address] Apr, [facility] [place] [facility] [address] [id number] [place] [address] Apr, [facility] [place] [facility] [id number] [place] [address] Apr, [facility] [place] [facility] [address] [id number] [place] [address] Apr, [facility] [place] [facility] [address] [id number] [place] [address] Apr, [facility] [place] [facility] [address] [facility] [id number] [place] [address] Apr, 2013 [facility] [place] [facility] [address] [id number] [place] [address] Apr, 2013 [facility] [place] [facility] [address] [id number] [place] [address] Apr, [facility] [place] [facility] [address] [id number] [place] [address] Apr, [facility] [place] [facility] [address] [id number] [place] [address] Apr, [facility] [place] [facility] [address] [id number] [place] [address] Mar, [facility] [place] [facility] [address] [id number] [place] [address] Mar, 2013 [facility] [place] [facility] [address] [id number] [place] [address] Mar, 2013 [facility] [place] [facility] [address] [id number] [place] [address] Mar, 2013 [facility] [place] [facility] [address] [id number] [place] [address] Mar, 2013 [facility] [place] [facility] [address] [id number] [place] [address] Mar, 2013 [facility] [place] [facility] [address] [id number] [place] [address] Mar, 2013 [facility] [place] [facility] [address] [id number] [place] [address] Mar, 2013 [facility] [place] [facility] [address] [id number] [place] [address] Mar, 2013 [facility] [place] [facility] [address] [id number] [place] [address] Mar, 2013 [facility] [place] [facility] [address] [id number] [place] [address] Feb, [facility] [place] [facility] [address] [id number] [place] [address] Feb, [facility] [place] [facility] [address] [id number] [facility] [place] [address] Feb, [facility] [place] [facility] [address] [id number] [place] [address] Feb, [facility] [place] [facility] [address] [facility] [id number] [facility] [place] [address] Feb, [facility] [place] [facility] [address] [id number] [place] [address] Feb, [facility] [place] [facility] [address] [id number] [place] [address] Feb, [facility] [place] [facility] [address] [id number] [place] [address] Feb, [facility] [place] [facility] [address] [facility] [id number] [facility] [place] [address] Feb, [facility] [place] [facility] [address] [id number] [facility] [place] [address] Feb, [facility] [place] [facility] [address] [id number] [facility] [place] [address] Feb, [facility] [place] [facility] [address] [id number] [place] [address] Feb, [facility] [place] [facility] [address] [facility] [id number] [place] [address] Feb, [facility] [place] [facility] [address] [id number] [place] [address] Feb, [facility] [place] [facility] [address] [id number] [facility] [place] [address] Feb, [facility] [place] [facility] [address] [id number] [facility] [place] [address] Feb, [facility] [place] [facility] [address] [facility] [id number] [place] [address] Jan, [facility] [place] [facility] [address] [facility] [id number] [facility] [place] [address] Jan, [facility] [place] [facility] [address] [facility] [id number] [place] [address] 16 Jan, 2014 [facility] [place] [facility] [address] [id number] [place] [address] 16 Jan, 2014 [facility] [place] [facility] [address] [facility] [id number] [place] [address] Jan, [facility] [place] [facility] [address] [id number] [place] [address] Jan, [facility] [place] [facility] [address] [facility] [id number] [place] [address] Dec, [facility] [place] [facility] [address] [id number] [place] [address] Dec, [facility] [place] [facility] [address] [id number] [place] [address] Dec, [facility] [place] [facility] [address] [id number] [place] [address] Dec, [facility] [place] [facility] [address] [id number] [place] [address] Dec, [facility] [place] [facility] [address] [facility] [id number] [place] [address] Dec, [facility] [place] [facility] [address] [id number] [place] [address] Dec, [facility] [place] [facility] [address] [id number] [place] [address] Dec, [facility] [place] [facility] [address] [id number] [place] [address] November, [facility] [place] [facility] [address] [facility] [id number] [place] [address] November, [facility] [place] [facility] [address] [id number] [place] [address] November, [facility] [place] [facility] [address] [id number] [place] [address] November, [facility] [place] [facility] [address] [id number] [place] [address] November, [facility] [place] [facility] [address] [id number] [place] [address] November, [facility] [place] [facility] [address] [id number] [place] [address] Oct, [facility] [place] [facility] [address] [id number] [place] [address] Oct, [facility] [place] [facility] [address] [id number] [place] [address] Oct, [facility] [place] [facility] [address] [id number] [place] [address] Oct, [facility] [place] [facility] [address] [id number] [place] [address] Sep, [facility] [place] [facility] [address] [id number] [place] [address] Sep, [facility] [place] [facility] [address] [id number] [place] [address] Sep, [facility] [place] [facility] [address] [id number] [place] [address] Sep, [facility] [place] [facility] [address] [id number] [place] [address] Sep, [facility] [place] [facility] [address] [id number] [place] [address] Sep, [facility] [place] [facility] [address] [id number] [place] [address] Aug, [facility] [place] [facility] [address] [id number] [place] [address] Aug, [facility] [address] [id number] [place] [address] Aug, [facility] [address] [id number] [place] [address] Aug, [facility] [address] [id number] [place] [address] Aug, [facility] [address] [id number] [place] [address] Aug, [facility] [address] [facility] [id number] [place] [address] Jul, [facility] [address] [id number] [place] [address] Jul, [facility] [address] [id number] [place] [address] Jul, [facility] [address] [id number] [place] [address] Jul, [facility] [address] [id number] [place] [address] Jul, [facility] [address] [id number] [place] [address] Jul, [facility] [address] [id number] [place] [address] Jul, [facility] [address] [id number] [place] [address] Jul, [facility] [address] [id number] [place] [address] Jul, [facility] [address] [id number] [place] [address] Jul, [facility] [address] [id number] [place] [address] Jul, [facility] [address] [id number] [place] [address] Jul, [facility] [address] [id number] [place] [address] Jul, [facility] [address] [id number] [place] [address] Jul, [facility] [address] [id number] [place] [address] Jul, [facility] [address] [id number] [place] [address] Jun, [facility] [address] [id number] [place] [address] 18 Jun, 2013 [facility] [address] [id number] [place] [address] Jun, [facility] [address] [id number] [place] [address] Jun, [facility] [address] [id number] [place] [address] May, [facility] [address] [id number] [place] [address] May, [facility] [address] [facility] [id number] May, [facility] [address] [id number] [place] [address] May, [facility] [address] [id number] [place] [address] May, [facility] [address] [id number] [place] [address] May, [facility] [address] [id number] [place] [address] May, [facility] [address] [id number] [place] [address] May, [facility] [address] [id number] [place] [address] May, [facility] [address] [facility] [id number] May, [facility] [address] [id number] [place] [address] May, [facility] [address] [facility] [id number] May, [facility] [address] [id number] [place] [address] May, [facility] [address] [facility] [id number] May, [facility] [id number] [place] [address] May, IMMUNIZATIONS No Known Immunizations SOCIAL HISTORY Never Assessed REASON FOR VISIT PLAN OF CARE VITAL SIGNS MEDICATIONS Unknown Medications RESULTS No Results PROCEDURES Procedure Date Ordered Result Body Site COMPLETE CBC W/AUTO DIFF WBC Aug 04, 2013 ASSAY THYROID STIM HORMONE Aug 04, 2013 ASSAY OF MAGNESIUM Aug 04, 2013 LIPID PANEL Aug 04, 2013 COMPREHEN METABOLIC PANEL Aug 04, 2013 ELECTROCARDIOGRAM, TRACING Aug 04, 2013 VENIPUNCT, ROUTINE* Aug 04, 2013 INSTRUCTIONS MEDICATIONS ADMINISTERED No Known Medications [...] stents x3 to L groin (Dr. 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
--- OUTSIDE RECORDS SUMMARY | 2019-11-07 10:17 | XMS REPORT ---
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 543155938 Problem COPD (chronic obstructive pulmonary disease) J44.9 Active 49189861 Problem Hypertension I10 Active 8209738 3 Problem Primary insomnia F51.01 Active 397 2004 Problem Hx of Clostridium difficile infection Z86.19 Active 669893163 Problem Chronic obstructive pulmon disease w acute lower resp infc t J44.0 Active 731032096 Problem History of arthroplasty of right knee Z96.651 Active 565742385 Problem Leg pain, left M79.605 Active 55849 7008 Problem Status post partial amputation of left foot Z89.43 2 Active 227606507 Problem Edema R60.9 Active 511289216 Problem Tobacco abuse, 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 Ac tive 528121939 Problem Anxiety F41.9 Active 30416656 Problem Chronic pain syndrome G89.4 Active 989847152 Problem Anemia, unspecified type D64.9 Activ e 914998213 Problem Depression, unspecified depression type F32.9 Active 92131192 Problem Other chronic pain G89.29 Active 8 8913226 Problem Iron deficiency anemia, unspecified iron deficiency an emia type D50.9 Active 23105249 Problem Insomnia, unspecified G47.00 Active 444599583 Problem Seasonal allergic rhinitis due to pollen J30.1 Active 38257118 Problem History of oral cancer Z85.819 Active 759349963 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 36 2917048 Problem Atrial fibrillation I48.91 Active 91764326 Problem Chronic obstructive pulmonary disease with (acute) exa cerbation J44.1 Active 317237296 Problem Rheumatoid arthritis M06.9 Active 85589707 Problem Dysthymia F34.1 Active 91760112 Problem Neuropathy G62.9 Active 494276079 Problem Rheumatoid arthritis with po sitive rheumatoid factor, involving unspecified site M05.9 Active 76392577 Problem Hemiplegia and hemiparesis f ollowing cerebral infarction affecting right dominant side I69.351 Active 530975992 Problem Cancer of neck C76.0 Active 71677 9000 ALLERGIES No Information ENCOUNTERS Encounter Location Date Diagnosis [place] [address] [address] November, [place] [address] [address] Sep, [place] [address] [address] 28 Aug, 2019 Chronic pain syndrome G89.4 [place] [address] [place] [address] 19 Aug, 2019 Chronic obstructive pulmonar y disease with (acute) exacerbation J44.1 [place] [address] [address] 12 Aug, 2019 Single subsegmental pulmonary embolism w ithout acute cor pulmonale I26.93 ; Rheumatoid arthritis with positive rheumatoid factor, involving unspecified site M05.9 ; Chronic pain syndrome G89.4 ; Leg pain, left M79.605 and 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 [place] [address] [address] Aug, [place] [address] [address] 11 Aug, 2019 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 [place] [address] [address] 07 Aug, 2019 Chronic pain syndrome G89.4 [facility] [address] [place] [id number] [place] [address] Jul, Primary insomnia F51.01 [facility] [address] [id number] [place] [address] Jul, Chronic pain syndrome G89.4 [facility] [address] [id number] [place] [address] Jul, [facility] [address] [address] Jul, [facility] [address] [address] Jul, Rheumatoid arthritis with positive rheum atoid factor, involving unspecified site M05.9 and Chronic pain syndrome G89.4 [facility] [address] [place] [address] [id number] [place] [address] Jul, [facility] [address] [address] Jun, Rheumatoid arthritis with positive rheum atoid factor, involving unspecified site M05.9 [place] [address] [address] Jun, Chronic pain syndrome G89.4 ; Rheumatoid arthritis with positive rheumatoid factor, involving unspecified site M05.9 and Anxiety F41.9 [facility] [address] [id number] [place] [address] Jun, [facility] [address] [address] Jun, Hemorrhoids, unspecified hemorrhoid type K64.9 [facility] [address] [address] Jun, Hemorrhoids, unspecified hemorrhoid type K64.9 ; Cancer of neck C76.0 and Drug-induced constipation K59.03 [facility] [id number] [place] [address] Jun, [facility] [address] [id number] [place] [address] Jun, [facility] [address] [address] Jun, Rheumatoid arthritis with positive rheum atoid factor, involving unspecified site M05.9 [facility] [address] [id number] [place] [address] May, [facility] [address] [address] May, Rheumatoid arthritis with positive rheum atoid factor, involving unspecified site M05.9 [place] [address] [address] Apr, Primary insomnia F51.01 [place] [address] [address] Apr, Rheumatoid arthritis with positive rheum atoid factor, involving unspecified site M05.9 [place] [address] [address] Mar, [facility] [address] [address] Mar, [place] [address] [address] Mar, Rheumatoid arthritis with positive rheum atoid factor, involving unspecified site M05.9 ; Atrial fibrillation I48.91 ; Chronic pain syndrome G89.4 ; Iron deficiency anemia, unspecified iron deficiency anemia type D50.9 and Hemiplegia and hemiparesis following cerebral infarction affecting right dominant side I69.351 [place] [address] [address] Mar, Chronic pain syndrome G89.4 and Primary insomnia F51.01 [facility] [address] [address] Mar, Rheumatoid arthritis with positive rheum atoid factor, involving unspecified site M05.9 [place] [address] [address] Feb, Rheumatoid arthritis with positive rheum atoid factor, involving unspecified site M05.9 ; Chronic pain syndrome G89.4 ; Atrial fibrillation I48.91 ; Iron deficiency anemia, unspecified iron deficiency anemia type D50.9 ; Hemiplegia and hemiparesis following cerebral infarction affecting right dominant side I69.351 and Primary insomnia F51.01 [facility] [address] [address] Feb, Chronic pain syndrome G89.4 [facility] [address] [address] Jan, Chronic pain syndrome G89.4 [facility] [address] [address] Jan, [facility] [address] [address] Jan, [facility] [address] [address] Dec, [facility] [address] [address] Dec, Chronic pain syndrome G89.4 [facility] [address] [address] Dec, [facility] [address] [address] November, Chronic pain syndrome G89.4 [facility] [address] [address] Oct, Chronic pain syndrome G89.4 [facility] [address] [address] Oct, [facility] [address] [address] Sep, Chronic pain syndrome G89.4 [facility] [address] [address] Sep, Leg pain, left M79.605 ; Right leg pain M79.604 and Reactive cervical nodes R59.0 [facility] [address] [id number] [place] [address] 14 Sep, 2018 [facility] [address] [address] Sep, Neuropathy G62.9 [facility] [address] [id number] [place] [id number] Sep, [facility] [address] [place] [address] [id number] [place] [address] Sep, Lymphadenopathy of left cervical region R59.0 [facility] [address] [address] Sep, Lymphadenopathy of left cervical region R59.0 and Neuropathy G62.9 [facility] [address] [place] [id number] [place] [address] Aug, Chronic pain syndrome G89.4 [facility] [address] [place] [address] [id number] [place] [address] Aug, [facility] [address] [address] 04 Aug, 2018 Peripheral vascular disease, unspecified I73.9 ; Other chronic pain G89.29 ; Chronic obstructive pulmon disease w acute lower resp infct J44.0 and Primary insomnia F51.01 [facility] [address] [address] Aug, Chronic pain syndrome G89.4 [facility] [address] [id number] [place] [address] Jul, Chronic pain syndrome G89.4 [facility] [address] [address] Jun, Chronic pain syndrome G89.4 [facility] [address] [place] [id number] [place] [address] May, Chronic pain syndrome G89.4 [facility] [address] [facility] [id number] [address] [place] [address] Apr, Cough R05 and Viral illness B34.9 [facility] [id number] [place] [address] Apr, Encounter for immunization Z23 [facility] [address] [id number] [place] [address] 16 Apr, 2018 Chronic pain syndrome G89.4 [facility] [address] [facility] [id number] [address] [place] [address] Apr, Left acute otitis media H66. 92 [facility] [address] [place] [id number] [place] [address] Mar, Rheumatoid arthritis M06.9 ; Other chron ic pain G89.29 ; History of oral cancer Z85.819 and History of tachycardia Z87.898 [place] [address] [address] Mar, Chronic pain syndrome G89.4 [facility] [address] [address] Feb, Chronic pain syndrome G89.4 [facility] [address] [address] Feb, Chronic pain syndrome G89.4 [facility] [address] [address] Jan, Chronic pain syndrome G89.4 [place] [address] [address] Jan, [facility] [address] [address] Dec, Chronic pain syndrome G89.4 [facility] [address] [address] November, Chronic pain syndrome G89.4 [facility] [address] [address] November, [facility] [address] [address] Oct, Chronic pain syndrome G89.4 [facility] [address] [address] Oct, [facility] [address] [address] Oct, Chronic pain syndrome G89.4 [facility] [address] [address] Oct, [facility] [address] [address] Oct, [facility] [address] [address] Sep, Left upper quadrant pain R10.12 ; Chroni c pain syndrome G89.4 ; Left lower quadrant pain R10.32 ; Other chronic pain G89.29 ; Sacrococcygeal disorders, not elsewhere classified M53.3 and Seasonal allergic rhinitis due to pollen J30.1 [facility] [address] [address] Sep, Chronic pain syndrome G89.4 [facility] [address] [address] Sep, [facility] [address] [address] Aug, Chronic pain syndrome G89.4 [facility] [address] [address] Aug, [facility] [address] [address] Aug, Insomnia, unspecified G47.00 [facility] [address] [address] Jul, [facility] [address] [address] Jul, [facility] [address] [address] Jul, Chronic pain syndrome G89.4 [place] [address] [address] Jun, Chronic pain syndrome G89.4 [facility] [address] [address] Jun, Chronic pain syndrome G89.4 [facility] [address] [address] May, [place] [address] [address] May, Shortness of breath R06.02 ; Peripheral vascular disease, unspecified I73.9 ; Pain in right knee M25.561 ; Other chronic pain G89.29 ; Chest wall pain R07.89 ; Chronic pain syndrome G89.4 ; Primary insomnia F51.01 and Ear pain, left H92.02 [place] [address] [address] May, Anxiety F41.9 [place] [address] [address] Apr, Pneumonia due to infectious organism, un specified laterality, unspecified part of lung J18.9 ; Hypoxia R09.02 ; Bradycardia R00.1 ; History of Clostridium difficile Z87.19 and Primary insomnia F51.01 [place] [address] [address] Apr, Anxiety F41.9 [place] [address] [address] Apr, [place] [address] [address] Mar, Anxiety F41.9 [place] [address] [address] Feb, [place] [address] [address] Feb, [place] [address] [address] Feb, Abnormal finding on urinalysis R82.90 [facility] [address] [address] Feb, [place] [address] [address] Feb, Shortness of breath R06.02 ; Tachycardia R00.0 ; Cough R05 ; Ill feeling R68.89 and Abnormal finding on urinalysis R82.90 [place] [address] [address] Feb, Anxiety F41.9 [facility] [address] [facility] [id number] [place] [address] Feb, Sore throat J02.9 and Acute diffuse otitis externa of left ear H60.312 [place] [address] [address] Jan, [place] [address] [address] Jan, [place] [address] [id number] [id number] Jan, [place] [address] [address] Jan, Depression, unspecified depression type F32.9 ; Chronic bronchitis, unspecified chronic bronchitis type J42 ; Chronic pain syndrome G89.4 and Anxiety F41.9 [facility] [address] [address] Jan, [place] [address] [address] Jan, [place] [address] [address] Jan, [place] [address] [place] [id number] [place] [id number] Jan, Chronic pain syndrome G89.4 [facility] [address] [place] [id number] Dec History of right knee surgery Z98.890 [place] [address] [address] Dec, [place] [address] [address] Dec, Chronic pain syndrome G89.4 [place] [address] [address] November, Anxiety F41.9 [facility] [address] [facility] [id number] [address] [place] [address] November, Acute cystitis without hemat uria N30.00 [facility] [place] [address] [place] [id number] [place] [address] November, Fever, unspecified fever cau se R50.9 and Acute cystitis without hematuria N30.00 [place] [address] [address] November, Chronic pain syndrome G89.4 [place] [address] [address] Oct, Anxiety F41.9 [place] [address] [address] Oct, Chronic pain syndrome G89.4 [place] [address] [address] Oct, Chronic pain syndrome G89.4 [place] [address] [address] Oct, [place] [address] [address] Oct, Chronic pain syndrome G89.4 ; Pain in ri ght knee M25.561 ; History of Clostridium difficile Z87.19 ; Iron deficiency anemia, unspecified iron deficiency anemia type D50.9 ; Peripheral vascular disease, unspecified I73.9 and Atrial fibrillation I48.91 [place] [address] [address] Oct, [facility] [id number] [place] [address] Oct, Chronic pain syndrome G89.4 [facility] [id number] [place] [address] Sep, [facility] [address] [place] [id number] [place] [address] Sep, Depression, unspecified depression type F32.9 ; Chronic bronchitis, unspecified chronic bronchitis type J42 ; Chronic pain syndrome G89.4 and Anxiety F41.9 [facility] [address] [place] [id number] Sep History of Clostridium difficile infection Z86.19 and History of stroke Z86.73 [facility] [id number] [place] [id number] Sep, Anxiety F41.9 [facility] [address] [address] Sep, Chronic pain syndrome G89.4 [facility] [address] [id number] [place] [address] Sep, [facility] [address] [id number] [id number] Sep, [facility] [address] [address] Aug, Anxiety F41.9 [facility] [address] [address] Aug, Anxiety F41.9 [facility] [address] [address] 16 Aug, 2016 [facility] [address] [address] 14 Aug, 2016 Acute knee pain, unspecified laterality M25.569 [facility] [address] [address] 13 Aug, 2016 [facility] [address] [id number] [place] [address] Aug, Chronic pain syndrome G89.4 [facility] [address] [id number] [place] [address] Aug, [facility] [address] [id number] [place] [address] Aug, [facility] [id number] [place] [address] Jul, [facility] [address] [address] Jul, Anxiety F41.9 [facility] [address] [id number] [place] [address] Jul, Clostridium difficile diarrhea A04.7 [facility] [address] [place] [id number] Jul Clostridium difficile diarrhea A04.7 ; Chronic pain syndrome G89.4 ; Chronic obstructive pulmon disease w acute lower resp infct J44.0 and Pain in right knee M25.561 [facility] [address] [place] [id number] [id number] Jul, [facility] [address] [facility] [id number] [address] [place] [address] Jul, Anxiety F41.9 and Chronic pa in syndrome G89.4 [facility] [address] [id number] [place] [address] Jun, Anxiety F41.9 [facility] [address] [id number] [place] [address] Jun, Rheumatoid arthritis 714.0 [facility] [address] [id number] [place] [address] Jun, Chronic pain syndrome G89.4 [facility] [address] [place] [id number] [place] [address] Jun, [facility] [address] [address] Jun, [facility] [address] [id number] [place] [address] Jun, History of pneumonia Z87.01 and History of Clostridium difficile Z87.19 [facility] [address] [id number] [place] [address] Jun, [facility] [address] [id number] [place] [address] May, [facility] [address] [address] May, Anxiety F41.9 [place] [address] [address] May, Chronic pain syndrome G89.4 [place] [address] [place] [id number] [place] [address] 15 May, 2016 Chronic bronchitis, unspecified chronic bronchitis type J42 [place] [address] [place] [address] [id number] [place] [address] May, [place] [address] [id number] [place] [address] May, C. difficile diarrhea A04.7 ; Peripheral edema R60.9 ; COPD (chronic obstructive pulmonary disease) J44.9 ; Rheumatoid arthritis, involving unspecified site, unspecified rheumatoid factor presence M06.9 ; Pain in right knee M25.561 ; Pain in left knee M25.562 and Other chronic pain G89.29 [place] [address] [id number] [place] [address] May, [place] [address] [place] [id number] [place] [address] May, [place] [address] [place] [id number] [place] [address] May, Anxiety F41.9 [facility] [id number] [place] [address] Apr, [place] [address] [address] Apr, Chronic pain syndrome G89.4 [place] [address] [address] Apr, Leg pain, left M79.605 [facility] [address] [address] 14 Apr, 2016 [place] [address] [address] Apr, [place] [address] [address] Apr, [place] [address] [address] Mar, Chronic pain syndrome G89.4 [place] [address] [address] Mar, Acute frontal sinusitis, recurrence not specified J01.10 [place] [address] [address] 20 Mar, 2016 Iron deficiency anemia, unspecified iron deficiency anemia type D50.9 ; Rheumatoid arthritis with positive rheumatoid factor, involving unspecified site M05.9 and Depression, unspecified depression type F32.9 [place] [address] [address] Mar, Iron deficiency anemia, unspecified iron deficiency anemia type D50.9 ; Depression, unspecified depression type F32.9 and Rheumatoid arthritis with positive rheumatoid factor, involving unspecified site M05.9 [place] [address] [address] Mar, [place] [address] [address] Mar, [place] [address] [address] Feb, Chronic pain syndrome G89.4 [place] [address] [address] Feb, Status post partial amputation of left f oot Z89.432 ; Status post CVA Z86.73 ; Hemiplegia G81.90 and Anemia, unspecified type D64.9 [place] [address] [address] Feb, [place] [address] [address] Feb, Anemia, unspecified type D64.9 [place] [address] [address] Feb, [place] [address] [address] Feb, Iron deficiency anemia, unspecified iron deficiency anemia type D50.9 [place] [address] [address] Feb, [place] [address] [address] Feb, Chronic bronchitis, unspecified chronic bronchitis type J42 [place] [address] [address] Feb, Iron deficiency anemia, unspecified iron deficiency anemia type D50.9 [place] [address] [address] Feb, Chronic pain syndrome G89.4 [place] [address] [address] Feb, Anemia, unspecified type D64.9 and Hypox ia R09.02 [place] [address] [address] Feb, Anemia, unspecified type D64.9 [place] [address] [address] Jan, [place] [address] [address] Jan, Anemia, unspecified type D64.9 [place] [address] [address] Jan, [facility] [address] [address] Jan, Anemia, unspecified type D64.9 [facility] [address] [address] Jan, Anemia, unspecified type D64.9 [facility] [address] [address] Jan, [facility] [address] [address] Jan, Anemia, unspecified type D64.9 [facility] [address] [address] Jan, [facility] [address] [address] Jan, [facility] [address] [address] Jan, Chronic pain syndrome G89.4 [facility] [address] [address] Jan, Anemia, unspecified type D64.9 [facility] [address] [address] Jan, Dysthymia F34.1 ; Cervicalgia M54.2 ; Fa tigue, unspecified type R53.83 and Depression, unspecified depression type F32.9 [facility] [address] [address] Dec, [facility] [address] [address] Dec, Anxiety F41.9 [facility] [address] [address] Dec, Chronic pain syndrome G89.4 [facility] [address] [address] November, [place] [id number] [place] [address] November, Edema R60.9 and Dizziness R42 [facility] [address] [address] November, [facility] [address] [address] November, [facility] [address] [address] November, COPD (chronic obstructive pulmonary dise ase) J44.9 ; Increased tracheal secretions J39.8 and Edema R60.9 [facility] [address] [place] [address] Oct, [facility] [address] [place] [address] Oct, Shortness of breath R06.02 a nd Edema R60.9 [place] [address] [address] Oct, Chronic bronchitis, unspecified chronic bronchitis type J42 ; Peripheral vascular disease, unspecified I73.9 ; Rheumatoid arthritis M06.9 and Atrial fibrillation I48.91 [facility] [id number] [place] [address] Oct, [facility] [address] [address] Oct, [facility] [address] [address] Oct, [facility] [address] [address] Oct, [facility] [address] [place] [address] Oct, COPD exacerbation J44.1 [facility] [address] [address] Sep, [facility] [address] [place] [address] Sep, [facility] [address] [address] Sep, [facility] [address] [address] Aug, [facility] [address] [address] Aug, 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 and PVD (peripher al vascular disease) I73.9 [facility] [address] [address] Aug, Bronchitis J40 ; COPD (chronic obstructi ve pulmonary disease) J44.9 and Dysthymia F34.1 [facility] [address] [address] Aug, [facility] [address] [address] Jul, [facility] [address] [address] Jul, [facility] [address] [address] Jul, [facility] [address] [address] Jun, [facility] [address] [address] Jun, [facility] [address] [address] Jun, Peripheral vascular disease I73.9 [facility] [address] [address] Jun, [facility] [address] [address] Jun, [facility] [address] [address] Jun, Leg pain, left M79.605 ; Dysphagia, unsp ecified dysphagia R13.10 ; Insomnia, unspecified type G47.00 ; PVD (peripheral vascular disease) I73.9 and Status post partial amputation of left foot Z89.432 [facility] [id number] [place] [address] May, [facility] [address] [address] May, [facility] [address] [address] May, [facility] [address] [address] May, [facility] [address] [address] May, [facility] [address] [address] Apr, [facility] [address] [address] Apr, [facility] [address] [address] Mar, [facility] [address] [address] Mar, [facility] [address] [address] Feb, [facility] [address] [address] Feb, Nicotine abuse 305.1 ; Arthralgia 719.40 and 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 [facility] [address] [address] Feb, [facility] [address] [address] Jan, [facility] [address] [address] Jan, [facility] [id number] [place] [address] Jan, [facility] [id number] [place] [address] Jan, [facility] [id number] [place] [address] Jan, 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 ; Rheumatoid arth ritis 714.0 ; Hypertension 401.9 ; GERD (gastroesophageal reflux disease) 530.81 ; Nicotine addiction 305.1 and Leukocytosis 288.60 [facility] [id number] [place] [address] Jan, [facility] [id number] [place] [address] Jan, [facility] [id number] [place] [address] Jan, [facility] [id number] [place] [address] Jan, [facility] [id number] [place] [address] Jan, [facility] [id number] [place] [address] Dec, [facility] [id number] [place] [address] Dec, [facility] [id number] [place] [address] Dec, [facility] [id number] [place] [address] Dec, [facility] [id number] [place] [address] November, [facility] [id number] [place] [address] November, [facility] [id number] [place] [address] November, Shortness of breath 786.05 [facility] [id number] [place] [address] November, Rheumatoid arthritis 714.0 [facility] [address] [address] November, 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 [facility] [id number] [place] [address] November, Neuropathy 355.9 ; Insomnia 780.52 ; Dys thymia 300.4 ; Shortness of breath 786.05 ; Rheumatoid arthritis 714.0 and Nausea 787.02 [facility] [id number] [place] [address] November, [facility] [address] [address] November, [facility] [id number] [place] [address] Oct, [facility] [address] [address] Oct, [facility] [id number] [place] [address] Oct, [facility] [address] [address] Oct, [facility] [address] [address] Sep, [facility] [id number] [place] [address] Sep, [facility] [id number] [place] [address] Sep, [facility] [address] [address] Sep, [facility] [id number] [place] [address] Sep, [facility] [address] [address] Sep, [facility] [place] [facility] [address] [id number] [place] [address] Sep, [facility] [place] [facility] [address] [id number] [place] [address] Sep, [facility] [place] [facility] [address] [id number] [place] [address] Aug, [facility] [place] [facility] [address] [id number] [place] [address] Aug, [facility] [place] [facility] [address] [id number] [place] [address] Aug, [facility] [place] [facility] [address] [id number] [place] [address] Aug, [facility] [place] [facility] [address] [id number] [place] [address] Aug, [facility] [place] [facility] [address] [id number] [place] [address] Aug, [facility] [place] [facility] [address] [id number] [place] [address] Jul, [facility] [place] [facility] [address] [id number] [place] [address] Jul, [facility] [place] [facility] [address] [id number] [place] [address] Jul, [facility] [place] [facility] [address] [id number] [place] [address] Jul, [facility] [place] [facility] [address] [id number] [place] [address] Jul, [facility] [place] [facility] [address] [id number] [place] [address] Jul, [facility] [place] [facility] [address] [id number] [place] [address] Jul, [facility] [place] [facility] [address] [id number] [place] [address] Jul, [facility] [place] [facility] [address] [id number] [place] [address] Jul, [facility] [place] [facility] [address] [id number] [place] [address] Jul, [facility] [place] [facility] [address] [facility] [id number] [place] [address] Jun, [facility] [place] [facility] [address] [id number] [place] [address] Jun, [facility] [place] [facility] [address] [id number] [place] [address] Jun, [facility] [place] [facility] [address] [facility] [id number] [place] [address] Jun, [facility] [place] [facility] [address] [id number] [place] [address] Jun, [facility] [place] [facility] [address] [id number] [place] [address] Jun, [facility] [place] [facility] [address] [id number] [place] [address] Jun, [facility] [place] [facility] [address] [id number] [place] [address] Jun, [facility] [place] [facility] [address] [id number] [place] [address] Jun, [facility] [place] [facility] [address] [id number] [place] [address] Jun, [facility] [place] [facility] [address] [id number] [place] [address] Jun, [facility] [place] [facility] [address] [id number] [place] [address] Jun, [facility] [place] [facility] [address] [id number] [place] [address] Jun, [facility] [place] [facility] [address] [id number] [place] [address] Jun, [facility] [place] [facility] [address] [id number] [place] [address] Jun, [facility] [place] [facility] [address] [id number] [place] [address] Jun, [facility] [place] [facility] [address] [id number] [place] [address] May, [facility] [place] [facility] [address] [id number] [place] [address] May, [facility] [place] [facility] [address] [id number] [place] [address] May, [facility] [place] [facility] [address] [id number] [place] [address] May, [facility] [place] [facility] [address] [id number] [place] [address] May, [facility] [place] [facility] [address] [id number] [place] [address] May, [facility] [place] [facility] [address] [id number] [place] [address] May, [facility] [place] [facility] [address] [id number] [place] [address] May, [facility] [place] [facility] [address] [id number] [place] [address] May, [facility] [place] [facility] [address] [id number] [place] [address] Apr, [facility] [place] [facility] [address] [id number] [place] [address] Apr, [facility] [place] [facility] [address] [id number] [place] [address] Apr, [facility] [place] [facility] [address] [id number] [place] [address] Apr, [facility] [place] [facility] [id number] [place] [address] Apr, [facility] [place] [facility] [address] [id number] [place] [address] Apr, [facility] [place] [facility] [address] [id number] [place] [address] Apr, [facility] [place] [facility] [address] [facility] [id number] [place] [address] Apr, 2013 [facility] [place] [facility] [address] [id number] [place] [address] Apr, 2013 [facility] [place] [facility] [address] [id number] [place] [address] Apr, [facility] [place] [facility] [address] [id number] [place] [address] Apr, [facility] [place] [facility] [address] [id number] [place] [address] Apr, [facility] [place] [facility] [address] [id number] [place] [address] Mar, [facility] [place] [facility] [address] [id number] [place] [address] Mar, 2013 [facility] [place] [facility] [address] [id number] [place] [address] Mar, 2013 [facility] [place] [facility] [address] [id number] [place] [address] Mar, 2013 [facility] [place] [facility] [address] [id number] [place] [address] Mar, 2013 [facility] [place] [facility] [address] [id number] [place] [address] Mar, 2013 [facility] [place] [facility] [address] [id number] [place] [address] Mar, 2013 [facility] [place] [facility] [address] [id number] [place] [address] Mar, 2013 [facility] [place] [facility] [address] [id number] [place] [address] Mar, 2013 [facility] [place] [facility] [address] [id number] [place] [address] Mar, 2013 [facility] [place] [facility] [address] [id number] [place] [address] Feb, [facility] [place] [facility] [address] [id number] [place] [address] Feb, [facility] [place] [facility] [address] [id number] [facility] [place] [address] Feb, [facility] [place] [facility] [address] [id number] [place] [address] Feb, [facility] [place] [facility] [address] [facility] [id number] [facility] [place] [address] Feb, [facility] [place] [facility] [address] [id number] [place] [address] Feb, [facility] [place] [facility] [address] [id number] [place] [address] Feb, [facility] [place] [facility] [address] [id number] [place] [address] Feb, [facility] [place] [facility] [address] [facility] [id number] [facility] [place] [address] Feb, [facility] [place] [facility] [address] [id number] [facility] [place] [address] Feb, [facility] [place] [facility] [address] [id number] [facility] [place] [address] Feb, [facility] [place] [facility] [address] [id number] [place] [address] Feb, [facility] [place] [facility] [address] [facility] [id number] [place] [address] Feb, [facility] [place] [facility] [address] [id number] [place] [address] Feb, [facility] [place] [facility] [address] [id number] [facility] [place] [address] Feb, [facility] [place] [facility] [address] [id number] [facility] [place] [address] Feb, [facility] [place] [facility] [address] [facility] [id number] [place] [address] Jan, [facility] [place] [facility] [address] [facility] [id number] [facility] [place] [address] Jan, [facility] [place] [facility] [address] [facility] [id number] [place] [address] 16 Jan, 2014 [facility] [place] [facility] [address] [id number] [place] [address] 16 Jan, 2014 [facility] [place] [facility] [address] [facility] [id number] [place] [address] Jan, [facility] [place] [facility] [address] [id number] [place] [address] Jan, [facility] [place] [facility] [address] [facility] [id number] [place] [address] Dec, [facility] [place] [facility] [address] [id number] [place] [address] Dec, [facility] [place] [facility] [address] [id number] [place] [address] Dec, [facility] [place] [facility] [address] [id number] [place] [address] Dec, [facility] [place] [facility] [address] [id number] [place] [address] Dec, [facility] [place] [facility] [address] [facility] [id number] [place] [address] Dec, [facility] [place] [facility] [address] [id number] [place] [address] Dec, [facility] [place] [facility] [address] [id number] [place] [address] Dec, [facility] [place] [facility] [address] [id number] [place] [address] November, [facility] [place] [facility] [address] [facility] [id number] [place] [address] November, [facility] [place] [facility] [address] [id number] [place] [address] November, [facility] [place] [facility] [address] [id number] [place] [address] November, [facility] [place] [facility] [address] [id number] [place] [address] November, [facility] [place] [facility] [address] [id number] [place] [address] November, [facility] [place] [facility] [address] [id number] [place] [address] Oct, [facility] [place] [facility] [address] [id number] [place] [address] Oct, [facility] [place] [facility] [address] [id number] [place] [address] Oct, [facility] [place] [facility] [address] [id number] [place] [address] Oct, [facility] [place] [facility] [address] [id number] [place] [address] Sep, [facility] [address] [id number] [place] [address] Sep, [facility] [address] [id number] [place] [address] Sep, [facility] [address] [id number] [place] [address] Sep, [facility] [address] [id number] [place] [address] Sep, [facility] [address] [id number] [place] [address] Sep, [facility] [address] [id number] [place] [address] Aug, [facility] [address] [id number] [place] [address] Aug, [facility] [address] [id number] [place] [address] Aug, [facility] [address] [id number] [place] [address] Aug, [facility] [address] [id number] [place] [address] Aug, [facility] [address] [id number] [place] [address] Aug, [facility] [address] [facility] [id number] [place] [address] Jul, [facility] [address] [id number] [place] [address] Jul, [facility] [address] [id number] [place] [address] Jul, [facility] [address] [id number] [place] [address] Jul, [facility] [address] [id number] [place] [address] Jul, [facility] [address] [id number] [place] [address] Jul, [facility] [address] [id number] [place] [address] Jul, [facility] [address] [id number] [place] [address] Jul, [facility] [address] [id number] [place] [address] Jul, [facility] [address] [id number] [place] [address] Jul, [facility] [address] [id number] [place] [address] Jul, [facility] [address] [id number] [place] [address] Jul, [facility] [address] [id number] [place] [address] Jul, [facility] [address] [id number] [place] [address] Jul, [facility] [address] [id number] [place] [address] Jul, [facility] [address] [id number] [place] [address] Jun, [facility] [address] [id number] [place] [address] 18 Jun, 2013 [facility] [address] [id number] [place] [address] Jun, [facility] [address] [id number] [place] [address] Jun, [facility] [address] [id number] [place] [address] May, [facility] [address] [id number] [place] [address] May, [facility] [address] [facility] [id number] May, [facility] [address] [id number] [place] [address] May, [facility] [address] [id number] [place] [address] May, [facility] [address] [id number] [place] [address] May, [facility] [address] [id number] [place] [address] May, [facility] [address] [id number] [place] [address] May, [facility] [address] [id number] [place] [address] May, [facility] [address] [facility] [id number] May, [facility] [address] [id number] [place] [address] May, [facility] [address] [facility] [id number] May, [facility] [address] [id number] [place] [address] May, [facility] [address] [facility] [id number] May, [facility] [id number] [place] [address] May, IMMUNIZATIONS No Known Immunizations SOCIAL HISTORY [...] davis 01/08/16 Hospitalization History pseudomemranous colitis, sepsis--[facility] 04/21/2016 Hospitalization History C Diff--[facility] 05/10/2016 Hospitalization History sepsis, pneumonia, diarrhea--[facility] Hospitalization History recurrent cdiff, pneumonia-[facility] Hospitalization History sepsis,pneumonia- [facility] 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
--- OUTSIDE RECORDS SUMMARY | 2019-11-07 10:17 | XMS REPORT ---
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 910525133 Problem COPD (chronic obstructive pulmonary disease) J44.9 Active 01069078 Problem Hypertension I10 Active 1534286 3 Problem Primary insomnia F51.01 Active 397 2004 Problem Hx of Clostridium difficile infection Z86.19 Active 021510544 Problem Chronic obstructive pulmon disease w acute lower resp infc t J44.0 Active 386974235 Problem History of arthroplasty of right knee Z96.651 Active 315325804 Problem Leg pain, left M79.605 Active 85766 7008 Problem Status post partial amputation of left foot Z89.43 2 Active 700187600 Problem Edema R60.9 Active 606625656 Problem Tobacco abuse, 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 Ac tive 359256100 Problem Anxiety F41.9 Active 69044891 Problem Chronic pain syndrome G89.4 Active 488907064 Problem Anemia, unspecified type D64.9 Activ e 444089690 Problem Depression, unspecified depression type F32.9 Active 08119790 Problem Other chronic pain G89.29 Active 8 7960161 Problem Iron deficiency anemia, unspecified iron deficiency an emia type D50.9 Active 90646776 Problem Insomnia, unspecified G47.00 Active 210598117 Problem Seasonal allergic rhinitis due to pollen J30.1 Active 70855153 Problem History of oral cancer Z85.819 Active 803512883 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 36 4755261 Problem Atrial fibrillation I48.91 Active 96431912 Problem Chronic obstructive pulmonary disease with (acute) exa cerbation J44.1 Active 138061292 Problem Rheumatoid arthritis M06.9 Active 90007236 Problem Dysthymia F34.1 Active 74144468 Problem Neuropathy G62.9 Active 607857239 Problem Rheumatoid arthritis with po sitive rheumatoid factor, involving unspecified site M05.9 Active 52489123 Problem Hemiplegia and hemiparesis f ollowing cerebral infarction affecting right dominant side I69.351 Active 390227140 Problem Cancer of neck C76.0 Active 58242 9000 ALLERGIES No Information ENCOUNTERS Encounter Location Date Diagnosis [place] [address] [address] November, [place] [address] [address] Sep, [place] [address] [address] 28 Aug, 2019 Chronic pain syndrome G89.4 [place] [address] [place] [address] 19 Aug, 2019 Chronic obstructive pulmonar y disease with (acute) exacerbation J44.1 [place] [address] [address] 12 Aug, 2019 Single subsegmental pulmonary embolism w ithout acute cor pulmonale I26.93 ; Rheumatoid arthritis with positive rheumatoid factor, involving unspecified site M05.9 ; Chronic pain syndrome G89.4 ; Leg pain, left M79.605 and 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 [place] [address] [address] Aug, [place] [address] [address] 11 Aug, 2019 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 [place] [address] [address] 07 Aug, 2019 Chronic pain syndrome G89.4 [facility] [address] [place] [id number] [place] [address] Jul, Primary insomnia F51.01 [facility] [address] [place] [id number] [place] [address] Jul, Chronic pain syndrome G89.4 [facility] [address] [place] [address] [id number] [place] [address] Jul, [facility] [address] [address] Jul, [facility] [address] [address] Jul, Rheumatoid arthritis with positive rheum atoid factor, involving unspecified site M05.9 and Chronic pain syndrome G89.4 [facility] [address] [place] [id number] [place] [address] Jul, [facility] [address] [address] Jun, Rheumatoid arthritis with positive rheum atoid factor, involving unspecified site M05.9 [place] [address] [address] Jun, Chronic pain syndrome G89.4 ; Rheumatoid arthritis with positive rheumatoid factor, involving unspecified site M05.9 and Anxiety F41.9 [facility] [address] [place] [id number] [place] [address] Jun, [facility] [address] [address] Jun, Hemorrhoids, unspecified hemorrhoid type K64.9 [facility] [address] [address] Jun, Hemorrhoids, unspecified hemorrhoid type K64.9 ; Cancer of neck C76.0 and Drug-induced constipation K59.03 [facility] [address] [place] [address] [id number] [place] [address] Jun, [facility] [address] [place] [address] [id number] [place] [address] Jun, [facility] [address] [address] Jun, Rheumatoid arthritis with positive rheum atoid factor, involving unspecified site M05.9 [facility] [address] [place] [id number] [place] [address] May, [facility] [address] [address] May, Rheumatoid arthritis with positive rheum atoid factor, involving unspecified site M05.9 [place] [address] [address] Apr, Primary insomnia F51.01 [place] [address] [address] Apr, Rheumatoid arthritis with positive rheum atoid factor, involving unspecified site M05.9 [place] [address] [address] Mar, [facility] [address] [address] Mar, [place] [address] [address] Mar, Rheumatoid arthritis with positive rheum atoid factor, involving unspecified site M05.9 ; Atrial fibrillation I48.91 ; Chronic pain syndrome G89.4 ; Iron deficiency anemia, unspecified iron deficiency anemia type D50.9 and Hemiplegia and hemiparesis following cerebral infarction affecting right dominant side I69.351 [place] [address] [address] Mar, Chronic pain syndrome G89.4 and Primary insomnia F51.01 [facility] [address] [address] Mar, Rheumatoid arthritis with positive rheum atoid factor, involving unspecified site M05.9 [place] [address] [address] Feb, Rheumatoid arthritis with positive rheum atoid factor, involving unspecified site M05.9 ; Chronic pain syndrome G89.4 ; Atrial fibrillation I48.91 ; Iron deficiency anemia, unspecified iron deficiency anemia type D50.9 ; Hemiplegia and hemiparesis following cerebral infarction affecting right dominant side I69.351 and Primary insomnia F51.01 [facility] [address] [address] Feb, Chronic pain syndrome G89.4 [facility] [address] [address] Jan, Chronic pain syndrome G89.4 [facility] [address] [address] Jan, [facility] [address] [address] Jan, [facility] [address] [address] Dec, [facility] [address] [address] Dec, Chronic pain syndrome G89.4 [facility] [address] [address] Dec, [facility] [address] [address] November, Chronic pain syndrome G89.4 [facility] [address] [address] Oct, Chronic pain syndrome G89.4 [facility] [address] [address] Oct, [facility] [address] [address] Sep, Chronic pain syndrome G89.4 [facility] [address] [address] Sep, Leg pain, left M79.605 ; Right leg pain M79.604 and Reactive cervical nodes R59.0 [facility] [address] [place] [id number] [place] [address] 14 Sep, 2018 [facility] [address] [address] Sep, Neuropathy G62.9 [facility] [address] [id number] [place] [id number] Sep, [facility] [address] [place] [id number] [place] [address] Sep, Lymphadenopathy of left cervical region R59.0 [facility] [address] [address] Sep, Lymphadenopathy of left cervical region R59.0 and Neuropathy G62.9 [facility] [address] [place] [id number] [place] [address] Aug, Chronic pain syndrome G89.4 [facility] [address] [place] [id number] [place] [address] Aug, [facility] [address] [address] 04 Aug, 2018 Peripheral vascular disease, unspecified I73.9 ; Other chronic pain G89.29 ; Chronic obstructive pulmon disease w acute lower resp infct J44.0 and Primary insomnia F51.01 [facility] [address] [address] Aug, Chronic pain syndrome G89.4 [facility] [address] [place] [id number] [place] [address] Jul, Chronic pain syndrome G89.4 [facility] [address] [address] Jun, Chronic pain syndrome G89.4 [facility] [address] [place] [id number] [place] [address] May, Chronic pain syndrome G89.4 [facility] [address] [facility] [id number] [address] [place] [address] Apr, Cough R05 and Viral illness B34.9 [facility] [address] [place] [address] [id number] [place] [address] Apr, Encounter for immunization Z23 [facility] [address] [place] [address] [id number] [place] [address] 16 Apr, 2018 Chronic pain syndrome G89.4 [facility] [address] [facility] [id number] [address] [place] [address] Apr, Left acute otitis media H66. 92 [facility] [address] [place] [id number] [place] [address] Mar, Rheumatoid arthritis M06.9 ; Other chron ic pain G89.29 ; History of oral cancer Z85.819 and History of tachycardia Z87.898 [place] [address] [address] Mar, Chronic pain syndrome G89.4 [facility] [address] [address] Feb, Chronic pain syndrome G89.4 [facility] [address] [address] Feb, Chronic pain syndrome G89.4 [facility] [address] [address] Jan, Chronic pain syndrome G89.4 [place] [address] [address] Jan, [facility] [address] [address] Dec, Chronic pain syndrome G89.4 [facility] [address] [address] November, Chronic pain syndrome G89.4 [facility] [address] [address] November, [facility] [address] [address] Oct, Chronic pain syndrome G89.4 [facility] [address] [address] Oct, [facility] [address] [address] Oct, Chronic pain syndrome G89.4 [facility] [address] [address] Oct, [facility] [address] [address] Oct, [facility] [address] [address] Sep, Left upper quadrant pain R10.12 ; Chroni c pain syndrome G89.4 ; Left lower quadrant pain R10.32 ; Other chronic pain G89.29 ; Sacrococcygeal disorders, not elsewhere classified M53.3 and Seasonal allergic rhinitis due to pollen J30.1 [facility] [address] [address] Sep, Chronic pain syndrome G89.4 [facility] [address] [address] Sep, [facility] [address] [address] Aug, Chronic pain syndrome G89.4 [facility] [address] [address] Aug, [facility] [address] [address] Aug, Insomnia, unspecified G47.00 [facility] [address] [address] Jul, [facility] [address] [address] Jul, [facility] [address] [address] Jul, Chronic pain syndrome G89.4 [place] [address] [address] Jun, Chronic pain syndrome G89.4 [facility] [address] [address] Jun, Chronic pain syndrome G89.4 [facility] [address] [address] May, [place] [address] [address] May, Shortness of breath R06.02 ; Peripheral vascular disease, unspecified I73.9 ; Pain in right knee M25.561 ; Other chronic pain G89.29 ; Chest wall pain R07.89 ; Chronic pain syndrome G89.4 ; Primary insomnia F51.01 and Ear pain, left H92.02 [place] [address] [address] May, Anxiety F41.9 [place] [address] [address] Apr, Pneumonia due to infectious organism, un specified laterality, unspecified part of lung J18.9 ; Hypoxia R09.02 ; Bradycardia R00.1 ; History of Clostridium difficile Z87.19 and Primary insomnia F51.01 [place] [address] [address] Apr, Anxiety F41.9 [place] [address] [address] Apr, [place] [address] [address] Mar, Anxiety F41.9 [place] [address] [address] Feb, [place] [address] [address] Feb, [place] [address] [address] Feb, Abnormal finding on urinalysis R82.90 [facility] [address] [address] Feb, [place] [address] [address] Feb, Shortness of breath R06.02 ; Tachycardia R00.0 ; Cough R05 ; Ill feeling R68.89 and Abnormal finding on urinalysis R82.90 [place] [address] [address] Feb, Anxiety F41.9 [facility] [address] [facility] [id number] [place] [address] Feb, Sore throat J02.9 and Acute diffuse otitis externa of left ear H60.312 [place] [address] [address] Jan, [place] [address] [address] Jan, [place] [id number] [id number] Jan, [place] [address] [address] Jan, Depression, unspecified depression type F32.9 ; Chronic bronchitis, unspecified chronic bronchitis type J42 ; Chronic pain syndrome G89.4 and Anxiety F41.9 [facility] [address] [address] Jan, [place] [address] [address] Jan, [place] [address] [address] Jan, [place] [id number] [place] [id number] Jan, Chronic pain syndrome G89.4 [facility] [address] [place] [id number] Dec History of right knee surgery Z98.890 [place] [address] [address] Dec, [place] [address] [address] Dec, Chronic pain syndrome G89.4 [place] [address] [address] November, Anxiety F41.9 [facility] N [facility] [id number] [address] [place] [address] November, Acute cystitis without hemat uria N30.00 [facility] [place] [address] [place] [id number] [place] [address] November, Fever, unspecified fever cau se R50.9 and Acute cystitis without hematuria N30.00 [place] [address] [address] November, Chronic pain syndrome G89.4 [place] [address] [address] Oct, Anxiety F41.9 [place] [address] [address] Oct, Chronic pain syndrome G89.4 [place] [address] [address] Oct, Chronic pain syndrome G89.4 [place] [address] [address] Oct, [place] [address] [address] Oct, Chronic pain syndrome G89.4 ; Pain in ri ght knee M25.561 ; History of Clostridium difficile Z87.19 ; Iron deficiency anemia, unspecified iron deficiency anemia type D50.9 ; Peripheral vascular disease, unspecified I73.9 and Atrial fibrillation I48.91 [place] [address] [address] Oct, [facility] [address] [place] [id number] [place] [address] Oct, Chronic pain syndrome G89.4 [facility] [address] [place] [address] [id number] [place] [address] Sep, [facility] [address] [place] [id number] [place] [address] Sep, Depression, unspecified depression type F32.9 ; Chronic bronchitis, unspecified chronic bronchitis type J42 ; Chronic pain syndrome G89.4 and Anxiety F41.9 [facility] [address] [place] [id number] Sep History of Clostridium difficile infection Z86.19 and History of stroke Z86.73 [facility] [id number] [place] [id number] Sep, Anxiety F41.9 [facility] [address] [address] Sep, Chronic pain syndrome G89.4 [facility] [address] [place] [id number] [place] [address] Sep, [facility] [address] [id number] [id number] Sep, [facility] [address] [address] Aug, Anxiety F41.9 [facility] [address] [address] Aug, Anxiety F41.9 [facility] [address] [address] 16 Aug, 2016 [facility] [address] [address] 14 Aug, 2016 Acute knee pain, unspecified laterality M25.569 [facility] [address] [address] 13 Aug, 2016 [facility] [address] [id number] [place] [address] Aug, Chronic pain syndrome G89.4 [facility] [address] [place] [id number] [place] [address] Aug, [facility] [address] [id number] [place] [address] Aug, [facility] [address] [place] [id number] [place] [address] Jul, [facility] [address] [address] Jul, Anxiety F41.9 [facility] [address] [place] [id number] [place] [address] Jul, Clostridium difficile diarrhea A04.7 [facility] [address] [place] [id number] Jul Clostridium difficile diarrhea A04.7 ; Chronic pain syndrome G89.4 ; Chronic obstructive pulmon disease w acute lower resp infct J44.0 and Pain in right knee M25.561 [facility] [address] [id number] [id number] Jul, [facility] [address] [facility] [id number] [address] [place] [address] Jul, Anxiety F41.9 and Chronic pa in syndrome G89.4 [facility] [address] [id number] [place] [address] Jun, Anxiety F41.9 [facility] [address] [id number] [place] [address] Jun, Rheumatoid arthritis 714.0 [facility] [address] [place] [id number] [place] [address] Jun, Chronic pain syndrome G89.4 [facility] [address] [place] [id number] [place] [address] Jun, [facility] [address] [address] Jun, [facility] [address] [place] [id number] [place] [address] Jun, History of pneumonia Z87.01 and History of Clostridium difficile Z87.19 [facility] [address] [place] [id number] [place] [address] Jun, [facility] [address] [place] [id number] [place] [address] May, [facility] [address] [address] May, Anxiety F41.9 [place] [address] [address] May, Chronic pain syndrome G89.4 [place] [address] [place] [id number] [place] [address] 15 May, 2016 Chronic bronchitis, unspecified chronic bronchitis type J42 [place] [address] [place] [id number] [place] [address] May, [place] [address] [place] [id number] [place] [address] May, C. difficile diarrhea A04.7 ; Peripheral edema R60.9 ; COPD (chronic obstructive pulmonary disease) J44.9 ; Rheumatoid arthritis, involving unspecified site, unspecified rheumatoid factor presence M06.9 ; Pain in right knee M25.561 ; Pain in left knee M25.562 and Other chronic pain G89.29 [place] [address] [place] [id number] [place] [address] May, [place] [address] [place] [id number] [place] [address] May, [place] [address] [place] [id number] [place] [address] May, Anxiety F41.9 [facility] [address] [place] [id number] [place] [address] Apr, [place] [address] [address] Apr, Chronic pain syndrome G89.4 [place] [address] [address] Apr, Leg pain, left M79.605 [facility] [address] [address] 14 Apr, 2016 [place] [address] [address] Apr, [place] [address] [address] Apr, [place] [address] [address] Mar, Chronic pain syndrome G89.4 [place] [address] [address] Mar, Acute frontal sinusitis, recurrence not specified J01.10 [place] [address] [address] 20 Mar, 2016 Iron deficiency anemia, unspecified iron deficiency anemia type D50.9 ; Rheumatoid arthritis with positive rheumatoid factor, involving unspecified site M05.9 and Depression, unspecified depression type F32.9 [place] [address] [address] Mar, Iron deficiency anemia, unspecified iron deficiency anemia type D50.9 ; Depression, unspecified depression type F32.9 and Rheumatoid arthritis with positive rheumatoid factor, involving unspecified site M05.9 [place] [address] [address] Mar, [place] [address] [address] Mar, [place] [address] [address] Feb, Chronic pain syndrome G89.4 [place] [address] [address] Feb, Status post partial amputation of left f oot Z89.432 ; Status post CVA Z86.73 ; Hemiplegia G81.90 and Anemia, unspecified type D64.9 [place] [address] [address] Feb, [place] [address] [address] Feb, Anemia, unspecified type D64.9 [place] [address] [address] Feb, [place] [address] [address] Feb, Iron deficiency anemia, unspecified iron deficiency anemia type D50.9 [place] [address] [address] Feb, [place] [address] [address] Feb, Chronic bronchitis, unspecified chronic bronchitis type J42 [place] [address] [address] Feb, Iron deficiency anemia, unspecified iron deficiency anemia type D50.9 [place] [address] [address] Feb, Chronic pain syndrome G89.4 [place] [address] [address] Feb, Anemia, unspecified type D64.9 and Hypox ia R09.02 [place] [address] [address] Feb, Anemia, unspecified type D64.9 [place] [address] [address] Jan, [place] [address] [address] Jan, Anemia, unspecified type D64.9 [place] [address] [address] Jan, [facility] [address] [address] Jan, Anemia, unspecified type D64.9 [facility] [address] [address] Jan, Anemia, unspecified type D64.9 [facility] [address] [address] Jan, [facility] [address] [address] Jan, Anemia, unspecified type D64.9 [facility] [address] [address] Jan, [facility] [address] [address] Jan, [facility] [address] [address] Jan, Chronic pain syndrome G89.4 [facility] [address] [address] Jan, Anemia, unspecified type D64.9 [facility] [address] [address] Jan, Dysthymia F34.1 ; Cervicalgia M54.2 ; Fa tigue, unspecified type R53.83 and Depression, unspecified depression type F32.9 [facility] [address] [address] Dec, [facility] [address] [address] Dec, Anxiety F41.9 [facility] [address] [address] Dec, Chronic pain syndrome G89.4 [facility] [address] [address] November, [place] [address] [place] [id number] [place] [address] November, Edema R60.9 and Dizziness R42 [facility] [address] [address] November, [facility] [address] [address] November, [facility] [address] [address] November, COPD (chronic obstructive pulmonary dise ase) J44.9 ; Increased tracheal secretions J39.8 and Edema R60.9 [facility] [id number] [place] [id number] Oct, [facility] [facility] [address] [place] [address] Oct, Shortness of breath R06.02 a nd Edema R60.9 [place] [address] [address] Oct, Chronic bronchitis, unspecified chronic bronchitis type J42 ; Peripheral vascular disease, unspecified I73.9 ; Rheumatoid arthritis M06.9 and Atrial fibrillation I48.91 [facility] [id number] [place] [address] Oct, [facility] [address] [address] Oct, [facility] [address] [address] Oct, [facility] [address] [address] Oct, [facility] [address] [place] [address] Oct, COPD exacerbation J44.1 [facility] [address] [address] Sep, [facility] [address] [place] [address] Sep, [facility] [address] [address] Sep, [facility] [address] [address] Aug, [facility] [address] [address] Aug, 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 and PVD (peripher al vascular disease) I73.9 [facility] [address] [address] Aug, Bronchitis J40 ; COPD (chronic obstructi ve pulmonary disease) J44.9 and Dysthymia F34.1 [facility] [address] [address] Aug, [facility] [address] [address] Jul, [facility] [address] [address] Jul, [facility] [address] [address] Jul, [facility] [address] [address] Jun, [facility] [address] [address] Jun, [facility] [address] [address] Jun, Peripheral vascular disease I73.9 [facility] [address] [address] Jun, [facility] [address] [address] Jun, [facility] [address] [address] Jun, Leg pain, left M79.605 ; Dysphagia, unsp ecified dysphagia R13.10 ; Insomnia, unspecified type G47.00 ; PVD (peripheral vascular disease) I73.9 and Status post partial amputation of left foot Z89.432 [facility] [id number] [place] [address] May, [facility] [address] [address] May, [facility] [address] [address] May, [facility] [address] [address] May, [facility] [address] [address] May, [facility] [address] [address] Apr, [facility] [address] [address] Apr, [facility] [address] [address] Mar, [facility] [address] [address] Mar, [facility] [address] [address] Feb, [facility] [address] [address] Feb, Nicotine abuse 305.1 ; Arthralgia 719.40 and 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 [facility] [address] [address] Feb, [facility] [address] [address] Jan, [facility] [address] [address] Jan, [facility] [id number] [place] [address] Jan, [facility] [id number] [place] [address] Jan, [facility] [id number] [place] [address] Jan, 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 ; Rheumatoid arth ritis 714.0 ; Hypertension 401.9 ; GERD (gastroesophageal reflux disease) 530.81 ; Nicotine addiction 305.1 and Leukocytosis 288.60 [facility] [id number] [place] [address] Jan, [facility] [id number] [place] [address] Jan, [facility] [id number] [place] [address] Jan, [facility] [id number] [place] [address] Jan, [facility] [id number] [place] [address] Jan, [facility] [id number] [place] [address] Dec, [facility] [id number] [place] [address] Dec, [facility] [id number] [place] [address] Dec, [facility] [id number] [place] [address] Dec, [facility] [id number] [place] [address] November, [facility] [id number] [place] [address] November, [facility] [id number] [place] [address] November, Shortness of breath 786.05 [facility] [id number] [place] [address] November, Rheumatoid arthritis 714.0 [facility] [address] [address] November, 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 [facility] [id number] [place] [address] November, Neuropathy 355.9 ; Insomnia 780.52 ; Dys thymia 300.4 ; Shortness of breath 786.05 ; Rheumatoid arthritis 714.0 and Nausea 787.02 [facility] [id number] [place] [address] November, [facility] [address] [address] November, [facility] [id number] [place] [address] Oct, [facility] [address] [address] Oct, [facility] [id number] [place] [address] Oct, [facility] [address] [address] Oct, [facility] [address] [address] Sep, [facility] [id number] [place] [address] Sep, [facility] [id number] [place] [address] Sep, [facility] [address] [address] Sep, [facility] [id number] [place] [address] Sep, [facility] [address] [address] Sep, [facility] [place] [facility] [address] [id number] [place] [address] Sep, [facility] [place] [facility] [address] [id number] [place] [address] Sep, [facility] [place] [facility] [address] [id number] [place] [address] Aug, [facility] [place] [facility] [address] [id number] [place] [address] Aug, [facility] [place] [facility] [address] [id number] [place] [address] Aug, [facility] [place] [facility] [address] [id number] [place] [address] Aug, [facility] [place] [facility] [address] [id number] [place] [address] Aug, [facility] [place] [facility] [address] [id number] [place] [address] Aug, [facility] [place] [facility] [address] [id number] [place] [address] Jul, [facility] [place] [facility] [address] [id number] [place] [address] Jul, [facility] [place] [facility] [address] [id number] [place] [address] Jul, [facility] [place] [facility] [address] [id number] [place] [address] Jul, [facility] [place] [facility] [address] [id number] [place] [address] Jul, [facility] [place] [facility] [address] [id number] [place] [address] Jul, [facility] [place] [facility] [address] [id number] [place] [address] Jul, [facility] [place] [facility] [address] [id number] [place] [address] Jul, [facility] [place] [facility] [address] [id number] [place] [address] Jul, [facility] [place] [facility] [address] [id number] [place] [address] Jul, [facility] [place] [facility] [address] [facility] [id number] [place] [address] Jun, [facility] [place] [facility] [address] [id number] [place] [address] Jun, [facility] [place] [facility] [address] [id number] [place] [address] Jun, [facility] [place] [facility] [address] [facility] [id number] [place] [address] Jun, [facility] [place] [facility] [address] [id number] [place] [address] Jun, [facility] [place] [facility] [address] [id number] [place] [address] Jun, [facility] [place] [facility] [address] [id number] [place] [address] Jun, [facility] [place] [facility] [address] [id number] [place] [address] Jun, [facility] [place] [facility] [address] [id number] [place] [address] Jun, [facility] [place] [facility] [address] [id number] [place] [address] Jun, [facility] [place] [facility] [address] [id number] [place] [address] Jun, [facility] [place] [facility] [address] [id number] [place] [address] Jun, [facility] [place] [facility] [address] [id number] [place] [address] Jun, [facility] [place] [facility] [address] [id number] [place] [address] Jun, [facility] [place] [facility] [address] [id number] [place] [address] Jun, [facility] [place] [facility] [address] [id number] [place] [address] Jun, [facility] [place] [facility] [address] [id number] [place] [address] May, [facility] [place] [facility] [address] [id number] [place] [address] May, [facility] [place] [facility] [address] [id number] [place] [address] May, [facility] [place] [facility] [address] [id number] [place] [address] May, [facility] [place] [facility] [address] [id number] [place] [address] May, [facility] [place] [facility] [address] [id number] [place] [address] May, [facility] [place] [facility] [address] [id number] [place] [address] May, [facility] [place] [facility] [address] [id number] [place] [address] May, [facility] [place] [facility] [address] [id number] [place] [address] May, [facility] [place] [facility] [address] [id number] [place] [address] Apr, [facility] [place] [facility] [address] [id number] [place] [address] Apr, [facility] [place] [facility] [address] [id number] [place] [address] Apr, [facility] [place] [facility] [address] [id number] [place] [address] Apr, [facility] [place] [facility] [id number] [place] [address] Apr, [facility] [place] [facility] [address] [id number] [place] [address] Apr, [facility] [place] [facility] [address] [id number] [place] [address] Apr, [facility] [place] [facility] [address] [facility] [id number] [place] [address] Apr, 2013 [facility] [place] [facility] [address] [id number] [place] [address] Apr, 2013 [facility] [place] [facility] [address] [id number] [place] [address] Apr, [facility] [place] [facility] [address] [id number] [place] [address] Apr, [facility] [place] [facility] [address] [id number] [place] [address] Apr, [facility] [place] [facility] [address] [id number] [place] [address] Mar, [facility] [place] [facility] [address] [id number] [place] [address] Mar, 2013 [facility] [place] [facility] [address] [id number] [place] [address] Mar, 2013 [facility] [place] [facility] [address] [id number] [place] [address] Mar, 2013 [facility] [place] [facility] [address] [id number] [place] [address] Mar, 2013 [facility] [place] [facility] [address] [id number] [place] [address] Mar, 2013 [facility] [place] [facility] [address] [id number] [place] [address] Mar, 2013 [facility] [place] [facility] [address] [id number] [place] [address] Mar, 2013 [facility] [place] [facility] [address] [id number] [place] [address] Mar, 2013 [facility] [place] [facility] [address] [id number] [place] [address] Mar, 2013 [facility] [place] [facility] [address] [id number] [place] [address] Feb, [facility] [place] [facility] [address] [id number] [place] [address] Feb, [facility] [place] [facility] [address] [id number] [facility] [place] [address] Feb, [facility] [place] [facility] [address] [id number] [place] [address] Feb, [facility] [place] [facility] [address] [facility] [id number] [facility] [place] [address] Feb, [facility] [place] [facility] [address] [id number] [place] [address] Feb, [facility] [place] [facility] [address] [id number] [place] [address] Feb, [facility] [place] [facility] [address] [id number] [place] [address] Feb, [facility] [place] [facility] [address] [facility] [id number] [facility] [place] [address] Feb, [facility] [place] [facility] [address] [id number] [facility] [place] [address] Feb, [facility] [place] [facility] [address] [id number] [facility] [place] [address] Feb, [facility] [place] [facility] [address] [id number] [place] [address] Feb, [facility] [place] [facility] [address] [facility] [id number] [place] [address] Feb, [facility] [place] [facility] [address] [id number] [place] [address] Feb, [facility] [place] [facility] [address] [id number] [facility] [place] [address] Feb, [facility] [place] [facility] [address] [id number] [facility] [place] [address] Feb, [facility] [place] [facility] [address] [facility] [id number] [place] [address] Jan, [facility] [place] [facility] [address] [facility] [id number] [facility] [place] [address] Jan, [facility] [place] [facility] [address] [facility] [id number] [place] [address] 16 Jan, 2014 [facility] [place] [facility] [address] [id number] [place] [address] 16 Jan, 2014 [facility] [place] [facility] [address] [facility] [id number] [place] [address] Jan, [facility] [place] [facility] [address] [id number] [place] [address] Jan, [facility] [place] [facility] [address] [facility] [id number] [place] [address] Dec, [facility] [place] [facility] [address] [id number] [place] [address] Dec, [facility] [place] [facility] [address] [id number] [place] [address] Dec, [facility] [place] [facility] [address] [id number] [place] [address] Dec, [facility] [place] [facility] [address] [id number] [place] [address] Dec, [facility] [place] [facility] [address] [facility] [id number] [place] [address] Dec, [facility] [place] [facility] [address] [id number] [place] [address] Dec, [facility] [place] [facility] [address] [id number] [place] [address] Dec, [facility] [place] [facility] [address] [id number] [place] [address] November, [facility] [place] [facility] [address] [facility] [id number] [place] [address] November, [facility] [place] [facility] [address] [id number] [place] [address] November, [facility] [place] [facility] [address] [id number] [place] [address] November, [facility] [place] [facility] [address] [id number] [place] [address] November, [facility] [place] [facility] [address] [id number] [place] [address] November, [facility] [place] [facility] [address] [id number] [place] [address] Oct, [facility] [place] [facility] [address] [id number] [place] [address] Oct, [facility] [place] [facility] [address] [id number] [place] [address] Oct, [facility] [place] [facility] [address] [id number] [place] [address] Oct, [facility] [place] [facility] [address] [id number] [place] [address] Sep, [facility] [place] [facility] [address] [id number] [place] [address] Sep, [facility] [place] [facility] [address] [id number] [place] [address] Sep, [facility] [place] [facility] [address] [id number] [place] [address] Sep, [facility] [place] [facility] [address] [id number] [place] [address] Sep, [facility] [place] [facility] [address] [id number] [place] [address] Sep, [facility] [place] [facility] [address] [id number] [place] [address] Aug, [facility] [place] [facility] [address] [id number] [place] [address] Aug, [facility] [place] [facility] [address] [id number] [place] [address] Aug, [facility] [place] [facility] [address] [id number] [place] [address] Aug, [facility] [place] [facility] [address] [id number] [place] [address] Aug, [facility] [place] [facility] [address] [id number] [place] [address] Aug, [facility] [place] [facility] [address] [facility] [id number] [place] [address] Jul, [facility] [place] [facility] [address] [id number] [place] [address] Jul, [facility] [place] [facility] [address] [id number] [place] [address] Jul, [facility] [place] [facility] [address] [id number] [place] [address] Jul, [facility] [place] [facility] [address] [id number] [place] [address] Jul, [facility] [place] [facility] [address] [id number] [place] [address] Jul, [facility] [place] [facility] [address] [id number] [place] [address] Jul, [facility] [place] [facility] [address] [id number] [place] [address] Jul, [facility] [place] [facility] [address] [id number] [place] [address] Jul, [facility] [place] [facility] [address] [id number] [place] [address] Jul, [facility] [place] [facility] [address] [id number] [place] [address] Jul, [facility] [place] [facility] [address] [id number] [place] [address] Jul, [facility] [address] [id number] [place] [address] Jul, [facility] [address] [id number] [place] [address] Jul, [facility] [address] [id number] [place] [address] Jul, [facility] [address] [id number] [place] [address] Jun, [facility] [address] [id number] [place] [address] 18 Jun, 2013 [facility] [address] [id number] [place] [address] Jun, [facility] [address] [id number] [place] [address] Jun, [facility] [address] [id number] [place] [address] May, [facility] [address] [id number] [place] [address] May, [facility] [address] [facility] [id number] May, [facility] [address] [id number] [place] [address] May, [facility] [address] [id number] [place] [address] May, [facility] [address] [id number] [place] [address] May, [facility] [address] [id number] [place] [address] May, [facility] [address] [id number] [place] [address] May, [facility] [address] [id number] [place] [address] May[facility] [address] [facility] [id number] May, [facility] [address] [id number] [place] [address] May, [facility] [address] [facility] [id number] May, [facility] [address] [id number] [place] [address] May, [facility] [address] [facility] [id number] May, [facility] [id number] [place] [address] May, IMMUNIZATIONS No Known Immunizations SOCIAL HISTORY [...] leukocytosis--[facility]ank [facility] 01/08/16 Hospitalization History pseudomemranous colitis, sepsis--[facility] 04/21/2016 Hospitalization History C Diff--[facility] 05/10/2016 Hospitalization History sepsis, pneumonia, diarrhea--[facility] Hospitalization History recurrent cdiff, pneumonia-[facility] Hospitalization History sepsis,pneumonia- [facility] 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
--- OUTSIDE RECORDS SUMMARY | 2019-11-07 10:18 | XMS REPORT ---
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 420064363 Problem COPD (chronic obstructive pulmonary disease) J44.9 Active 68003782 Problem Hypertension I10 Active 2482716 3 Problem Primary insomnia F51.01 Active 397 2004 Problem Hx of Clostridium difficile infection Z86.19 Active 923838630 Problem Chronic obstructive pulmon disease w acute lower resp infc t J44.0 Active 514295995 Problem History of arthroplasty of right knee Z96.651 Active 781150840 Problem Leg pain, left M79.605 Active 78388 7008 Problem Status post partial amputation of left foot Z89.43 2 Active 794856222 Problem Edema R60.9 Active 365670274 Problem Tobacco abuse, 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 Ac tive 937455944 Problem Anxiety F41.9 Active 63464957 Problem Chronic pain syndrome G89.4 Active 140958959 Problem Anemia, unspecified type D64.9 Activ e 951972131 Problem Depression, unspecified depression type F32.9 Active 25775574 Problem Other chronic pain G89.29 Active 8 6228571 Problem Iron deficiency anemia, unspecified iron deficiency an emia type D50.9 Active 38256848 Problem Insomnia, unspecified G47.00 Active 502573069 Problem Seasonal allergic rhinitis due to pollen J30.1 Active 55555946 Problem History of oral cancer Z85.819 Active 403465560 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 36 8338294 Problem Atrial fibrillation I48.91 Active 15433173 Problem Chronic obstructive pulmonary disease with (acute) exa cerbation J44.1 Active 217423729 Problem Rheumatoid arthritis M06.9 Active 24754966 Problem Dysthymia F34.1 Active 72773278 Problem Neuropathy G62.9 Active 724319738 Problem Rheumatoid arthritis with po sitive rheumatoid factor, involving unspecified site M05.9 Active 76499545 Problem Hemiplegia and hemiparesis f ollowing cerebral infarction affecting right dominant side I69.351 Active 873226624 Problem Cancer of neck C76.0 Active 72751 9000 ALLERGIES No Information ENCOUNTERS Encounter Location Date Diagnosis [place] [address] [address] November, [place] [address] [address] Sep, [place] [address] [address] 28 Aug, 2019 Chronic pain syndrome G89.4 [place] [address] [place] [address] 19 Aug, 2019 Chronic obstructive pulmonar y disease with (acute) exacerbation J44.1 [place] [address] [address] 12 Aug, 2019 Single subsegmental pulmonary embolism w ithout acute cor pulmonale I26.93 ; Rheumatoid arthritis with positive rheumatoid factor, involving unspecified site M05.9 ; Chronic pain syndrome G89.4 ; Leg pain, left M79.605 and 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 [place] [address] [address] Aug, [place] [address] [address] 11 Aug, 2019 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 [place] [address] [address] 07 Aug, 2019 Chronic pain syndrome G89.4 [facility] [address] [place] [address] [id number] [place] [address] Jul, Primary insomnia F51.01 [facility] [id number] [place] [address] Jul, Chronic pain syndrome G89.4 [facility] [id number] [place] [address] Jul, [facility] [address] [address] Jul, [facility] [address] [address] Jul, Rheumatoid arthritis with positive rheum atoid factor, involving unspecified site M05.9 and Chronic pain syndrome G89.4 [facility] [address] [place] [address] [id number] [place] [address] Jul, [facility] [address] [address] Jun, Rheumatoid arthritis with positive rheum atoid factor, involving unspecified site M05.9 [place] [address] [address] Jun, Chronic pain syndrome G89.4 ; Rheumatoid arthritis with positive rheumatoid factor, involving unspecified site M05.9 and Anxiety F41.9 [facility] [address] [place] [address] [id number] [place] [address] Jun, [facility] [address] [address] Jun, Hemorrhoids, unspecified hemorrhoid type K64.9 [facility] [address] [address] Jun, Hemorrhoids, unspecified hemorrhoid type K64.9 ; Cancer of neck C76.0 and Drug-induced constipation K59.03 [facility] [id number] [place] [address] Jun, [facility] [id number] [place] [address] Jun, [facility] [address] [address] Jun, Rheumatoid arthritis with positive rheum atoid factor, involving unspecified site M05.9 [facility] [address] [address] [id number] [place] [address] May, [facility] [address] [address] May, Rheumatoid arthritis with positive rheum atoid factor, involving unspecified site M05.9 [place] [address] [address] Apr, Primary insomnia F51.01 [place] [address] [address] Apr, Rheumatoid arthritis with positive rheum atoid factor, involving unspecified site M05.9 [place] [address] [address] Mar, [facility] [address] [address] Mar, [place] [address] [address] Mar, Rheumatoid arthritis with positive rheum atoid factor, involving unspecified site M05.9 ; Atrial fibrillation I48.91 ; Chronic pain syndrome G89.4 ; Iron deficiency anemia, unspecified iron deficiency anemia type D50.9 and Hemiplegia and hemiparesis following cerebral infarction affecting right dominant side I69.351 [place] [address] [address] Mar, Chronic pain syndrome G89.4 and Primary insomnia F51.01 [facility] [address] [address] Mar, Rheumatoid arthritis with positive rheum atoid factor, involving unspecified site M05.9 [place] [address] [address] Feb, Rheumatoid arthritis with positive rheum atoid factor, involving unspecified site M05.9 ; Chronic pain syndrome G89.4 ; Atrial fibrillation I48.91 ; Iron deficiency anemia, unspecified iron deficiency anemia type D50.9 ; Hemiplegia and hemiparesis following cerebral infarction affecting right dominant side I69.351 and Primary insomnia F51.01 [facility] [address] [address] Feb, Chronic pain syndrome G89.4 [facility] [address] [address] Jan, Chronic pain syndrome G89.4 [facility] [address] [address] Jan, [facility] [address] [address] Jan, [facility] [address] [address] Dec, [facility] [address] [address] Dec, Chronic pain syndrome G89.4 [facility] [address] [address] Dec, [facility] [address] [address] November, Chronic pain syndrome G89.4 [facility] [address] [address] Oct, Chronic pain syndrome G89.4 [facility] [address] [address] Oct, [facility] [address] [address] Sep, Chronic pain syndrome G89.4 [facility] [address] [address] Sep, Leg pain, left M79.605 ; Right leg pain M79.604 and Reactive cervical nodes R59.0 [facility] [id number] [place] [address] 14 Sep, 2018 [facility] [address] [address] Sep, Neuropathy G62.9 [facility] [address] [id number] [place] [id number] Sep, [facility] [address] [place] [address] [id number] [place] [address] Sep, Lymphadenopathy of left cervical region R59.0 [facility] [address] [address] Sep, Lymphadenopathy of left cervical region R59.0 and Neuropathy G62.9 [facility] [id number] [place] [address] Aug, Chronic pain syndrome G89.4 [facility] [address] [place] [id number] [place] [address] Aug, [facility] [address] [address] 04 Aug, 2018 Peripheral vascular disease, unspecified I73.9 ; Other chronic pain G89.29 ; Chronic obstructive pulmon disease w acute lower resp infct J44.0 and Primary insomnia F51.01 [facility] [address] [address] Aug, Chronic pain syndrome G89.4 [facility] [address] [address] [id number] [place] [address] Jul, Chronic pain syndrome G89.4 [facility] [address] [address] Jun, Chronic pain syndrome G89.4 [facility] [address] [address] [id number] [place] [address] May, Chronic pain syndrome G89.4 [facility] [address] [facility] [id number] [address] [place] [address] Apr, Cough R05 and Viral illness B34.9 [facility] [id number] [place] [address] Apr, Encounter for immunization Z23 [facility] [id number] [place] [address] 16 Apr, 2018 Chronic pain syndrome G89.4 [facility] [address] [facility] [id number] [address] [place] [address] Apr, Left acute otitis media H66. 92 [facility] [address] [place] [address] [id number] [place] [address] Mar, Rheumatoid arthritis M06.9 ; Other chron ic pain G89.29 ; History of oral cancer Z85.819 and History of tachycardia Z87.898 [place] [address] [address] Mar, Chronic pain syndrome G89.4 [facility] [address] [address] Feb, Chronic pain syndrome G89.4 [facility] [address] [address] Feb, Chronic pain syndrome G89.4 [facility] [address] [address] Jan, Chronic pain syndrome G89.4 [place] [address] [address] Jan, [facility] [address] [address] Dec, Chronic pain syndrome G89.4 [facility] [address] [address] November, Chronic pain syndrome G89.4 [facility] [address] [address] November, [facility] [address] [address] Oct, Chronic pain syndrome G89.4 [facility] [address] [address] Oct, [facility] [address] [address] Oct, Chronic pain syndrome G89.4 [facility] [address] [address] Oct, [facility] [address] [address] Oct, [facility] [address] [address] Sep, Left upper quadrant pain R10.12 ; Chroni c pain syndrome G89.4 ; Left lower quadrant pain R10.32 ; Other chronic pain G89.29 ; Sacrococcygeal disorders, not elsewhere classified M53.3 and Seasonal allergic rhinitis due to pollen J30.1 [facility] [address] [address] Sep, Chronic pain syndrome G89.4 [facility] [address] [address] Sep, [facility] [address] [address] Aug, Chronic pain syndrome G89.4 [facility] [address] [address] Aug, [facility] [address] [address] Aug, Insomnia, unspecified G47.00 [facility] [address] [address] Jul, [facility] [address] [address] Jul, [facility] [address] [address] Jul, Chronic pain syndrome G89.4 [place] [address] [address] Jun, Chronic pain syndrome G89.4 [facility] [address] [address] Jun, Chronic pain syndrome G89.4 [facility] [address] [address] May, [place] [address] [address] May, Shortness of breath R06.02 ; Peripheral vascular disease, unspecified I73.9 ; Pain in right knee M25.561 ; Other chronic pain G89.29 ; Chest wall pain R07.89 ; Chronic pain syndrome G89.4 ; Primary insomnia F51.01 and Ear pain, left H92.02 [place] [address] [address] May, Anxiety F41.9 [place] [address] [address] Apr, Pneumonia due to infectious organism, un specified laterality, unspecified part of lung J18.9 ; Hypoxia R09.02 ; Bradycardia R00.1 ; History of Clostridium difficile Z87.19 and Primary insomnia F51.01 [place] [address] [address] Apr, Anxiety F41.9 [place] [address] [address] Apr, [place] [address] [address] Mar, Anxiety F41.9 [place] [address] [address] Feb, [place] [address] [address] Feb, [place] [address] [address] Feb, Abnormal finding on urinalysis R82.90 [facility] [address] [address] Feb, [place] [address] [address] Feb, Shortness of breath R06.02 ; Tachycardia R00.0 ; Cough R05 ; Ill feeling R68.89 and Abnormal finding on urinalysis R82.90 [place] [address] [address] Feb, Anxiety F41.9 [facility] [address] [facility] [id number] [place] [address] Feb, Sore throat J02.9 and Acute diffuse otitis externa of left ear H60.312 [place] [address] [address] Jan, [place] [address] [address] Jan, [place] [address] [id number] [id number] Jan, [place] [address] [address] Jan, Depression, unspecified depression type F32.9 ; Chronic bronchitis, unspecified chronic bronchitis type J42 ; Chronic pain syndrome G89.4 and Anxiety F41.9 [facility] [address] [address] Jan, [place] [address] [address] Jan, [place] [address] [address] Jan, [place] [id number] [place] [id number] Jan, Chronic pain syndrome G89.4 [facility] [address] [place] [id number] Dec History of right knee surgery Z98.890 [place] [address] [address] Dec, [place] [address] [address] Dec, Chronic pain syndrome G89.4 [place] [address] [address] November, Anxiety F41.9 [facility] [address] [facility] [id number] [address] [place] [address] November, Acute cystitis without hemat uria N30.00 [facility] [place] [address] [place] [id number] [place] [address] November, Fever, unspecified fever cau se R50.9 and Acute cystitis without hematuria N30.00 [place] [address] [address] November, Chronic pain syndrome G89.4 [place] [address] [address] Oct, Anxiety F41.9 [place] [address] [address] Oct, Chronic pain syndrome G89.4 [place] [address] [address] Oct, Chronic pain syndrome G89.4 [place] [address] [address] Oct, [place] [address] [address] Oct, Chronic pain syndrome G89.4 ; Pain in ri ght knee M25.561 ; History of Clostridium difficile Z87.19 ; Iron deficiency anemia, unspecified iron deficiency anemia type D50.9 ; Peripheral vascular disease, unspecified I73.9 and Atrial fibrillation I48.91 [place] [address] [address] Oct, [facility] [id number] [place] [address] Oct, Chronic pain syndrome G89.4 [facility] [address] [id number] [place] [address] Sep, [facility] [address] [place] [id number] [place] [address] Sep, Depression, unspecified depression type F32.9 ; Chronic bronchitis, unspecified chronic bronchitis type J42 ; Chronic pain syndrome G89.4 and Anxiety F41.9 [facility] [address] [place] [id number] Sep History of Clostridium difficile infection Z86.19 and History of stroke Z86.73 [facility] [address] [id number] [place] [id number] Sep, Anxiety F41.9 [facility] [address] [address] Sep, Chronic pain syndrome G89.4 [facility] [address] [place] [id number] [place] [address] Sep, [facility] [address] [id number] [id number] Sep, [facility] [address] [address] Aug, Anxiety F41.9 [facility] [address] [address] Aug, Anxiety F41.9 [facility] [address] [address] 16 Aug, 2016 [facility] [address] [address] 14 Aug, 2016 Acute knee pain, unspecified laterality M25.569 [facility] [address] [address] 13 Aug, 2016 [facility] [address] [id number] [place] [address] Aug, Chronic pain syndrome G89.4 [facility] [id number] [place] [address] Aug, [facility] [address] [id number] [place] [address] Aug, [facility] [address] [id number] [place] [address] Jul, [facility] [address] [address] Jul, Anxiety F41.9 [facility] [id number] [place] [address] Jul, Clostridium difficile diarrhea A04.7 [facility] [address] [place] [id number] Jul Clostridium difficile diarrhea A04.7 ; Chronic pain syndrome G89.4 ; Chronic obstructive pulmon disease w acute lower resp infct J44.0 and Pain in right knee M25.561 [facility] [address] [id number] [id number] Jul, [facility] [address] [facility] [id number] [address] [place] [address] Jul, Anxiety F41.9 and Chronic pa in syndrome G89.4 [facility] [address] [id number] [place] [address] Jun, Anxiety F41.9 [facility] [address] [id number] [place] [address] Jun, Rheumatoid arthritis 714.0 [facility] [address] [place] [id number] [place] [address] Jun, Chronic pain syndrome G89.4 [facility] [address] [id number] [place] [address] Jun, [facility] [address] [address] Jun, [facility] [id number] [place] [address] Jun, History of pneumonia Z87.01 and History of Clostridium difficile Z87.19 [facility] [address] [id number] [place] [address] Jun, [facility] [id number] [place] [address] May, [facility] [address] [address] May, Anxiety F41.9 [place] [address] [address] May, Chronic pain syndrome G89.4 [place] [address] [id number] [place] [address] 15 May, 2016 Chronic bronchitis, unspecified chronic bronchitis type J42 [place] [address] [id number] [place] [address] May, [place] [id number] [place] [address] May, C. difficile diarrhea A04.7 ; Peripheral edema R60.9 ; COPD (chronic obstructive pulmonary disease) J44.9 ; Rheumatoid arthritis, involving unspecified site, unspecified rheumatoid factor presence M06.9 ; Pain in right knee M25.561 ; Pain in left knee M25.562 and Other chronic pain G89.29 [place] [id number] [place] [address] May, [place] [address] [id number] [place] [address] May, [place] [address] [id number] [place] [address] May, Anxiety F41.9 [facility] [address] [id number] [place] [address] Apr, [place] [address] [address] Apr, Chronic pain syndrome G89.4 [place] [address] [address] Apr, Leg pain, left M79.605 [facility] [address] [address] 14 Apr, 2016 [place] [address] [address] Apr, [place] [address] [address] Apr, [place] [address] [address] Mar, Chronic pain syndrome G89.4 [place] [address] [address] Mar, Acute frontal sinusitis, recurrence not specified J01.10 [place] [address] [address] 20 Mar, 2016 Iron deficiency anemia, unspecified iron deficiency anemia type D50.9 ; Rheumatoid arthritis with positive rheumatoid factor, involving unspecified site M05.9 and Depression, unspecified depression type F32.9 [place] [address] [address] Mar, Iron deficiency anemia, unspecified iron deficiency anemia type D50.9 ; Depression, unspecified depression type F32.9 and Rheumatoid arthritis with positive rheumatoid factor, involving unspecified site M05.9 [place] [address] [address] Mar, [place] [address] [address] Mar, [place] [address] [address] Feb, Chronic pain syndrome G89.4 [place] [address] [address] Feb, Status post partial amputation of left f oot Z89.432 ; Status post CVA Z86.73 ; Hemiplegia G81.90 and Anemia, unspecified type D64.9 [place] [address] [address] Feb, [place] [address] [address] Feb, Anemia, unspecified type D64.9 [place] [address] [address] Feb, [place] [address] [address] Feb, Iron deficiency anemia, unspecified iron deficiency anemia type D50.9 [place] [address] [address] Feb, [place] [address] [address] Feb, Chronic bronchitis, unspecified chronic bronchitis type J42 [place] [address] [address] Feb, Iron deficiency anemia, unspecified iron deficiency anemia type D50.9 [place] [address] [address] Feb, Chronic pain syndrome G89.4 [place] [address] [address] Feb, Anemia, unspecified type D64.9 and Hypox ia R09.02 [place] [address] [address] Feb, Anemia, unspecified type D64.9 [place] [address] [address] Jan, [place] [address] [address] Jan, Anemia, unspecified type D64.9 [place] [address] [address] Jan, [facility] [address] [address] Jan, Anemia, unspecified type D64.9 [facility] [address] [address] Jan, Anemia, unspecified type D64.9 [facility] [address] [address] Jan, [facility] [address] [address] Jan, Anemia, unspecified type D64.9 [facility] [address] [address] Jan, [facility] [address] [address] Jan, [facility] [address] [address] Jan, Chronic pain syndrome G89.4 [facility] [address] [address] Jan, Anemia, unspecified type D64.9 [facility] [address] [address] Jan, Dysthymia F34.1 ; Cervicalgia M54.2 ; Fa tigue, unspecified type R53.83 and Depression, unspecified depression type F32.9 [facility] [address] [address] Dec, [facility] [address] [address] Dec, Anxiety F41.9 [facility] [address] [address] Dec, Chronic pain syndrome G89.4 [facility] [address] [address] November, [place] [id number] [place] [address] November, Edema R60.9 and Dizziness R42 [facility] [address] [address] November, [facility] [address] [address] November, [facility] [address] [address] November, COPD (chronic obstructive pulmonary dise ase) J44.9 ; Increased tracheal secretions J39.8 and Edema R60.9 [facility] [address] [place] [address] Oct, [facility] [address] [place] [address] Oct, Shortness of breath R06.02 a nd Edema R60.9 [place] [address] [address] Oct, Chronic bronchitis, unspecified chronic bronchitis type J42 ; Peripheral vascular disease, unspecified I73.9 ; Rheumatoid arthritis M06.9 and Atrial fibrillation I48.91 [facility] [id number] [place] [address] Oct, [facility] [address] [address] Oct, [facility] [address] [address] Oct, [facility] [address] [address] Oct, [facility] [address] [place] [address] Oct, COPD exacerbation J44.1 [facility] [address] [address] Sep, [facility] [address] [place] [address] Sep, [facility] [address] [address] Sep, [facility] [address] [address] Aug, [facility] [address] [address] Aug, 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 and PVD (peripher al vascular disease) I73.9 [facility] [address] [address] Aug, Bronchitis J40 ; COPD (chronic obstructi ve pulmonary disease) J44.9 and Dysthymia F34.1 [facility] [address] [address] Aug, [facility] [address] [address] Jul, [facility] [address] [address] Jul, [facility] [address] [address] Jul, [facility] [address] [address] Jun, [facility] [address] [address] Jun, [facility] [address] [address] Jun, Peripheral vascular disease I73.9 [facility] [address] [address] Jun, [facility] [address] [address] Jun, [facility] [address] [address] Jun, Leg pain, left M79.605 ; Dysphagia, unsp ecified dysphagia R13.10 ; Insomnia, unspecified type G47.00 ; PVD (peripheral vascular disease) I73.9 and Status post partial amputation of left foot Z89.432 [facility] [id number] [place] [address] May, [facility] [address] [address] May, [facility] [address] [address] May, [facility] [address] [address] May, [facility] [address] [address] May, [facility] [address] [address] Apr, [facility] [address] [address] Apr, [facility] [address] [address] Mar, [facility] [address] [address] Mar, [facility] [address] [address] Feb, [facility] [address] [address] Feb, Nicotine abuse 305.1 ; Arthralgia 719.40 and 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 [facility] [address] [address] Feb, [facility] [address] [address] Jan, [facility] [address] [address] Jan, [facility] [id number] [place] [address] Jan, [facility] [id number] [place] [address] Jan, [facility] [id number] [place] [address] Jan, 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 ; Rheumatoid arth ritis 714.0 ; Hypertension 401.9 ; GERD (gastroesophageal reflux disease) 530.81 ; Nicotine addiction 305.1 and Leukocytosis 288.60 [facility] [id number] [place] [address] Jan, [facility] [id number] [place] [address] Jan, [facility] [id number] [place] [address] Jan, [facility] [id number] [place] [address] Jan, [facility] [id number] [place] [address] Jan, [facility] [id number] [place] [address] Dec, [facility] [id number] [place] [address] Dec, [facility] [id number] [place] [address] Dec, [facility] [id number] [place] [address] Dec, [facility] [id number] [place] [address] November, [facility] [id number] [place] [address] November, [facility] [id number] [place] [address] November, Shortness of breath 786.05 [facility] [id number] [place] [address] November, Rheumatoid arthritis 714.0 [facility] [address] [address] November, 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 [facility] [id number] [place] [address] November, Neuropathy 355.9 ; Insomnia 780.52 ; Dys thymia 300.4 ; Shortness of breath 786.05 ; Rheumatoid arthritis 714.0 and Nausea 787.02 [facility] [id number] [place] [address] November, [facility] [address] [address] November, [facility] [id number] [place] [address] Oct, [facility] [address] [address] Oct, [facility] [id number] [place] [address] Oct, [facility] [address] [address] Oct, [facility] [address] [address] Sep, [facility] [id number] [place] [address] Sep, [facility] [id number] [place] [address] Sep, [facility] [address] [address] Sep, [facility] [id number] [place] [address] Sep, [facility] [address] [address] Sep, [facility] [place] [facility] [address] [id number] [place] [address] Sep, [facility] [place] [facility] [address] [id number] [place] [address] Sep, [facility] [place] [facility] [address] [id number] [place] [address] Aug, [facility] [place] [facility] [address] [id number] [place] [address] Aug, [facility] [place] [facility] [address] [id number] [place] [address] Aug, [facility] [place] [facility] [address] [id number] [place] [address] Aug, [facility] [place] [facility] [address] [id number] [place] [address] Aug, [facility] [place] [facility] [address] [id number] [place] [address] Aug, [facility] [place] [facility] [address] [id number] [place] [address] Jul, [facility] [place] [facility] [address] [id number] [place] [address] Jul, [facility] [place] [facility] [address] [id number] [place] [address] Jul, [facility] [place] [facility] [address] [id number] [place] [address] Jul, [facility] [place] [facility] [address] [id number] [place] [address] Jul, [facility] [place] [facility] [address] [id number] [place] [address] Jul, [facility] [place] [facility] [address] [id number] [place] [address] Jul, [facility] [place] [facility] [address] [id number] [place] [address] Jul, [facility] [place] [facility] [address] [id number] [place] [address] Jul, [facility] [place] [facility] [address] [id number] [place] [address] Jul, [facility] [place] [facility] [address] [facility] [id number] [place] [address] Jun, [facility] [place] [facility] [address] [id number] [place] [address] Jun, [facility] [place] [facility] [address] [id number] [place] [address] Jun, [facility] [place] [facility] [address] [facility] [id number] [place] [address] Jun, [facility] [place] [facility] [address] [id number] [place] [address] Jun, [facility] [place] [facility] [address] [id number] [place] [address] Jun, [facility] [place] [facility] [address] [id number] [place] [address] Jun, [facility] [place] [facility] [address] [id number] [place] [address] Jun, [facility] [place] [facility] [address] [id number] [place] [address] Jun, [facility] [place] [facility] [address] [id number] [place] [address] Jun, [facility] [place] [facility] [address] [id number] [place] [address] Jun, [facility] [place] [facility] [address] [id number] [place] [address] Jun, [facility] [place] [facility] [address] [id number] [place] [address] Jun, [facility] [place] [facility] [address] [id number] [place] [address] Jun, [facility] [place] [facility] [address] [id number] [place] [address] Jun, [facility] [place] [facility] [address] [id number] [place] [address] Jun, [facility] [place] [facility] [address] [id number] [place] [address] May, [facility] [place] [facility] [address] [id number] [place] [address] May, [facility] [place] [facility] [address] [id number] [place] [address] May, [facility] [place] [facility] [address] [id number] [place] [address] May, [facility] [place] [facility] [address] [id number] [place] [address] May, [facility] [place] [facility] [address] [id number] [place] [address] May, [facility] [place] [facility] [address] [id number] [place] [address] May, [facility] [place] [facility] [address] [id number] [place] [address] May, [facility] [place] [facility] [address] [id number] [place] [address] May, [facility] [place] [facility] [address] [id number] [place] [address] Apr, [facility] [place] [facility] [address] [id number] [place] [address] Apr, [facility] [place] [facility] [address] [id number] [place] [address] Apr, [facility] [place] [facility] [address] [id number] [place] [address] Apr, [facility] [place] [facility] [id number] [place] [address] Apr, [facility] [place] [facility] [address] [id number] [place] [address] Apr, [facility] [place] [facility] [address] [id number] [place] [address] Apr, [facility] [place] [facility] [address] [facility] [id number] [place] [address] Apr, 2013 [facility] [place] [facility] [address] [id number] [place] [address] Apr, 2013 [facility] [place] [facility] [address] [id number] [place] [address] Apr, [facility] [place] [facility] [address] [id number] [place] [address] Apr, [facility] [place] [facility] [address] [id number] [place] [address] Apr, [facility] [place] [facility] [address] [id number] [place] [address] Mar, [facility] [place] [facility] [address] [id number] [place] [address] Mar, 2013 [facility] [place] [facility] [address] [id number] [place] [address] Mar, 2013 [facility] [place] [facility] [address] [id number] [place] [address] Mar, 2013 [facility] [place] [facility] [address] [id number] [place] [address] Mar, 2013 [facility] [place] [facility] [address] [id number] [place] [address] Mar, 2013 [facility] [place] [facility] [address] [id number] [place] [address] Mar, 2013 [facility] [place] [facility] [address] [id number] [place] [address] Mar, 2013 [facility] [place] [facility] [address] [id number] [place] [address] Mar, 2013 [facility] [place] [facility] [address] [id number] [place] [address] Mar, 2013 [facility] [place] [facility] [address] [id number] [place] [address] Feb, [facility] [place] [facility] [address] [id number] [place] [address] Feb, [facility] [place] [facility] [address] [id number] [facility] [address] Feb, [facility] [place] [facility] [address] [id number] [place] [address] Feb, [facility] [place] [facility] [address] [facility] [id number] [facility] [address] Feb, [facility] [place] [facility] [address] [id number] [place] [address] Feb, [facility] [place] [facility] [address] [id number] [place] [address] Feb, [facility] [place] [facility] [address] [id number] [place] [address] Feb, [facility] [place] [facility] [address] [facility] [id number] [facility] [address] Feb, [facility] [place] [facility] [address] [id number] [facility] [address] Feb, [facility] [place] [facility] [address] [id number] [facility] [address] Feb, [facility] [place] [facility] [address] [id number] [place] [address] Feb, [facility] [place] [facility] [address] [facility] [id number] [place] [address] Feb, [facility] [place] [facility] [address] [id number] [place] [address] Feb, [facility] [place] [facility] [address] [id number] [facility] [place] [address] Feb, [facility] [place] [facility] [address] [id number] [facility] [place] [address] Feb, [facility] [place] [facility] [address] [facility] [id number] [place] [address] Jan, [facility] [place] [facility] [address] [facility] [id number] [facility] [place] [address] Jan, [facility] [place] [facility] [address] [facility] [id number] [place] [address] 16 Jan, 2014 [facility] [place] [facility] [address] [id number] [place] [address] 16 Jan, 2014 [facility] [place] [facility] [address] [facility] [id number] [place] [address] Jan, [facility] [place] [facility] [address] [id number] [place] [address] Jan, [facility] [place] [facility] [address] [facility] [id number] [place] [address] Dec, [facility] [place] [facility] [address] [id number] [place] [address] Dec, [facility] [place] [facility] [address] [id number] [place] [address] Dec, [facility] [place] [facility] [address] [id number] [place] [address] Dec, [facility] [place] [facility] [address] [id number] [place] [address] Dec, [facility] [place] [facility] [address] [facility] [id number] [place] [address] Dec, [facility] [place] [facility] [address] [id number] [place] [address] Dec, [facility] [place] [facility] [address] [id number] [place] [address] Dec, [facility] [place] [facility] [address] [id number] [place] [address] November, [facility] [place] [facility] [address] [facility] [id number] [place] [address] November, [facility] [place] [facility] [address] [id number] [place] [address] November, [facility] [place] [facility] [address] [id number] [place] [address] November, [facility] [place] [facility] [address] [id number] [place] [address] November, [facility] [place] [facility] [address] [id number] [place] [address] November, [facility] [place] [facility] [address] [id number] [place] [address] Oct, [facility] [place] [facility] [address] [id number] [place] [address] Oct, [facility] [place] [facility] [address] [id number] [place] [address] Oct, [facility] [place] [facility] [address] [id number] [place] [address] Oct, [facility] [place] [facility] [address] [id number] [place] [address] Sep, [facility] [place] [facility] [address] [id number] [place] [address] Sep, [facility] [place] [facility] [address] [id number] [place] [address] Sep, [facility] [place] [facility] [address] [id number] [place] [address] Sep, [facility] [place] [facility] [address] [id number] [place] [address] Sep, [facility] [place] [facility] [address] [id number] [place] [address] Sep, [facility] [place] [facility] [address] [id number] [place] [address] Aug, [facility] [place] [facility] [address] [id number] [place] [address] Aug, [facility] [place] [facility] [address] [id number] [place] [address] Aug, [facility] [place] [facility] [address] [id number] [place] [address] Aug, [facility] [address] [id number] [place] [address] Aug, [facility] [address] [id number] [place] [address] Aug, [facility] [address] [facility] [id number] [place] [address] Jul, [facility] [address] [id number] [place] [address] Jul, [facility] [address] [id number] [place] [address] Jul, [facility] [address] [id number] [place] [address] Jul, [facility] [address] [id number] [place] [address] Jul, [facility] [address] [id number] [place] [address] Jul, [facility] [address] [id number] [place] [address] Jul, [facility] [address] [id number] [place] [address] Jul, [facility] [address] [id number] [place] [address] Jul, [facility] [address] [id number] [place] [address] Jul, [facility] [address] [id number] [place] [address] Jul, [facility] [address] [id number] [place] [address] Jul, [facility] [address] [id number] [place] [address] Jul, [facility] [address] [id number] [place] [address] Jul, [facility] [address] [id number] [place] [address] Jul, [facility] [address] [id number] [place] [address] Jun, [facility] [address] [id number] [place] [address] 18 Jun, 2013 [facility] [address] [id number] [place] [address] Jun, [facility] [address] [id number] [place] [address] Jun, [facility] [address] [id number] [place] [address] May, [facility] [address] [id number] [place] [address] May, [facility] [address] [facility] [id number] May, [facility] [address] [id number] [place] [address] May, [facility] [address] [id number] [place] [address] May, [facility] [address] [id number] [place] [address] May, [facility] [address] [id number] [place] [address] May, [facility] [address] [id number] [place] [address] May, [facility] [address] [id number] [place] [address] May, [facility] [address] [facility] [id number] May, [facility] [address] [id number] [place] [address] May, [facility] [address] [facility] [id number] May, [facility] [address] [id number] [place] [address] May, [facility] [address] [facility] [id number] May, [facility] [id number] [place] [address] May, IMMUNIZATIONS No Known Immunizations SOCIAL HISTORY [...] pneumonia-[facility] Hospitalization History sepsis,pneumonia- [facility] 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
--- OUTSIDE RECORDS SUMMARY | 2019-11-07 10:18 | XMS REPORT ---
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 122910609 Problem COPD (chronic obstructive pulmonary disease) J44.9 Active 38938315 Problem Hypertension I10 Active 4124328 3 Problem Primary insomnia F51.01 Active 397 2004 Problem Hx of Clostridium difficile infection Z86.19 Active 665694166 Problem Chronic obstructive pulmon disease w acute lower resp infc t J44.0 Active 099294008 Problem History of arthroplasty of right knee Z96.651 Active 443609654 Problem Leg pain, left M79.605 Active 20261 7008 Problem Status post partial amputation of left foot Z89.43 2 Active 806376723 Problem Edema R60.9 Active 445951822 Problem Tobacco abuse, 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 Ac tive 741323700 Problem Anxiety F41.9 Active 79454508 Problem Chronic pain syndrome G89.4 Active 945438740 Problem Anemia, unspecified type D64.9 Activ e 668540666 Problem Depression, unspecified depression type F32.9 Active 98604631 Problem Other chronic pain G89.29 Active 8 2407196 Problem Iron deficiency anemia, unspecified iron deficiency an emia type D50.9 Active 31737753 Problem Insomnia, unspecified G47.00 Active 929939976 Problem Seasonal allergic rhinitis due to pollen J30.1 Active 30089246 Problem History of oral cancer Z85.819 Active 732665981 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 36 3248463 Problem Atrial fibrillation I48.91 Active 85266250 Problem Chronic obstructive pulmonary disease with (acute) exa cerbation J44.1 Active 347798135 Problem Rheumatoid arthritis M06.9 Active 74442166 Problem Dysthymia F34.1 Active 17877338 Problem Neuropathy G62.9 Active 871350066 Problem Rheumatoid arthritis with po sitive rheumatoid factor, involving unspecified site M05.9 Active 55800719 Problem Hemiplegia and hemiparesis f ollowing cerebral infarction affecting right dominant side I69.351 Active 104980328 Problem Cancer of neck C76.0 Active 12856 9000 ALLERGIES No Information ENCOUNTERS Encounter Location Date Diagnosis [place] [address] [address] November, [place] [address] [address] Sep, [place] [address] [address] 28 Aug, 2019 Chronic pain syndrome G89.4 [place] [address] [place] [address] 19 Aug, 2019 Chronic obstructive pulmonar y disease with (acute) exacerbation J44.1 [place] [address] [address] 12 Aug, 2019 Single subsegmental pulmonary embolism w ithout acute cor pulmonale I26.93 ; Rheumatoid arthritis with positive rheumatoid factor, involving unspecified site M05.9 ; Chronic pain syndrome G89.4 ; Leg pain, left M79.605 and 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 [place] [address] [address] Aug, [place] [address] [address] 11 Aug, 2019 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 [place] [address] [address] 07 Aug, 2019 Chronic pain syndrome G89.4 [facility] [address] [place] [id number] [place] [address] Jul, Primary insomnia F51.01 [facility] [address] [place] [address] [id number] [place] [address] Jul, Chronic pain syndrome G89.4 [facility] [address] [place] [address] [id number] [place] [address] Jul, [facility] [address] [address] Jul, [facility] [address] [address] Jul, Rheumatoid arthritis with positive rheum atoid factor, involving unspecified site M05.9 and Chronic pain syndrome G89.4 [facility] [address] [place] [id number] [place] [address] Jul, [facility] [address] [address] Jun, Rheumatoid arthritis with positive rheum atoid factor, involving unspecified site M05.9 [place] [address] [address] Jun, Chronic pain syndrome G89.4 ; Rheumatoid arthritis with positive rheumatoid factor, involving unspecified site M05.9 and Anxiety F41.9 [facility] [address] [place] [address] [id number] [place] [address] Jun, [facility] [address] [address] Jun, Hemorrhoids, unspecified hemorrhoid type K64.9 [facility] [address] [address] Jun, Hemorrhoids, unspecified hemorrhoid type K64.9 ; Cancer of neck C76.0 and Drug-induced constipation K59.03 [facility] [id number] [place] [address] Jun, [facility] [address] [place] [id number] [place] [address] Jun, [facility] [address] [address] Jun, Rheumatoid arthritis with positive rheum atoid factor, involving unspecified site M05.9 [facility] [address] [place] [id number] [place] [address] May, [facility] [address] [address] May, Rheumatoid arthritis with positive rheum atoid factor, involving unspecified site M05.9 [place] [address] [address] Apr, Primary insomnia F51.01 [place] [address] [address] Apr, Rheumatoid arthritis with positive rheum atoid factor, involving unspecified site M05.9 [place] [address] [address] Mar, [facility] [address] [address] Mar, [place] [address] [address] Mar, Rheumatoid arthritis with positive rheum atoid factor, involving unspecified site M05.9 ; Atrial fibrillation I48.91 ; Chronic pain syndrome G89.4 ; Iron deficiency anemia, unspecified iron deficiency anemia type D50.9 and Hemiplegia and hemiparesis following cerebral infarction affecting right dominant side I69.351 [place] [address] [address] Mar, Chronic pain syndrome G89.4 and Primary insomnia F51.01 [facility] [address] [address] Mar, Rheumatoid arthritis with positive rheum atoid factor, involving unspecified site M05.9 [place] [address] [address] Feb, Rheumatoid arthritis with positive rheum atoid factor, involving unspecified site M05.9 ; Chronic pain syndrome G89.4 ; Atrial fibrillation I48.91 ; Iron deficiency anemia, unspecified iron deficiency anemia type D50.9 ; Hemiplegia and hemiparesis following cerebral infarction affecting right dominant side I69.351 and Primary insomnia F51.01 [facility] [address] [address] Feb, Chronic pain syndrome G89.4 [facility] [address] [address] Jan, Chronic pain syndrome G89.4 [facility] [address] [address] Jan, [facility] [address] [address] Jan, [facility] [address] [address] Dec, [facility] [address] [address] Dec, Chronic pain syndrome G89.4 [facility] [address] [address] Dec, [facility] [address] [address] November, Chronic pain syndrome G89.4 [facility] [address] [address] Oct, Chronic pain syndrome G89.4 [facility] [address] [address] Oct, [facility] [address] [address] Sep, Chronic pain syndrome G89.4 [facility] [address] [address] Sep, Leg pain, left M79.605 ; Right leg pain M79.604 and Reactive cervical nodes R59.0 [facility] [address] [place] [address] [id number] [place] [address] 14 Sep, 2018 [facility] [address] [address] Sep, Neuropathy G62.9 [facility] [address] [facility] [place] [id number] Sep, [facility] [address] [place] [id number] [place] [address] Sep, Lymphadenopathy of left cervical region R59.0 [facility] [address] [address] Sep, Lymphadenopathy of left cervical region R59.0 and Neuropathy G62.9 [facility] [address] [place] [id number] [place] [address] Aug, Chronic pain syndrome G89.4 [facility] [address] [place] [id number] [place] [address] Aug, [facility] [address] [address] 04 Aug, 2018 Peripheral vascular disease, unspecified I73.9 ; Other chronic pain G89.29 ; Chronic obstructive pulmon disease w acute lower resp infct J44.0 and Primary insomnia F51.01 [facility] [address] [address] Aug, Chronic pain syndrome G89.4 [facility] [address] [place] [id number] [place] [address] Jul, Chronic pain syndrome G89.4 [facility] [address] [address] Jun, Chronic pain syndrome G89.4 [facility] [address] [place] [id number] [place] [address] May, Chronic pain syndrome G89.4 [facility] [address] [facility] [id number] [place] [address] Apr, Cough R05 and Viral illness B34.9 [facility] [address] [id number] [place] [address] Apr, Encounter for immunization Z23 [facility] [address] [place] [id number] [place] [address] 16 Apr, 2018 Chronic pain syndrome G89.4 [facility] [address] [facility] [id number] [place] [address] Apr, Left acute otitis media H66. 92 [facility] [address] [place] [id number] [place] [address] Mar, Rheumatoid arthritis M06.9 ; Other chron ic pain G89.29 ; History of oral cancer Z85.819 and History of tachycardia Z87.898 [place] [address] [address] Mar, Chronic pain syndrome G89.4 [facility] [address] [address] Feb, Chronic pain syndrome G89.4 [facility] [address] [address] Feb, Chronic pain syndrome G89.4 [facility] [address] [address] Jan, Chronic pain syndrome G89.4 [place] [address] [address] Jan, [facility] [address] [address] Dec, Chronic pain syndrome G89.4 [facility] [address] [address] November, Chronic pain syndrome G89.4 [facility] [address] [address] November, [facility] [address] [address] Oct, Chronic pain syndrome G89.4 [facility] [address] [address] Oct, [facility] [address] [address] Oct, Chronic pain syndrome G89.4 [facility] [address] [address] Oct, [facility] [address] [address] Oct, [facility] [address] [address] Sep, Left upper quadrant pain R10.12 ; Chroni c pain syndrome G89.4 ; Left lower quadrant pain R10.32 ; Other chronic pain G89.29 ; Sacrococcygeal disorders, not elsewhere classified M53.3 and Seasonal allergic rhinitis due to pollen J30.1 [facility] [address] [address] Sep, Chronic pain syndrome G89.4 [facility] [address] [address] Sep, [facility] [address] [address] Aug, Chronic pain syndrome G89.4 [facility] [address] [address] Aug, [facility] [address] [address] Aug, Insomnia, unspecified G47.00 [facility] [address] [address] Jul, [facility] [address] [address] Jul, [facility] [address] [address] Jul, Chronic pain syndrome G89.4 [place] [address] [address] Jun, Chronic pain syndrome G89.4 [facility] [address] [address] Jun, Chronic pain syndrome G89.4 [facility] [address] [address] May, [place] [address] [address] May, Shortness of breath R06.02 ; Peripheral vascular disease, unspecified I73.9 ; Pain in right knee M25.561 ; Other chronic pain G89.29 ; Chest wall pain R07.89 ; Chronic pain syndrome G89.4 ; Primary insomnia F51.01 and Ear pain, left H92.02 [place] [address] [address] May, Anxiety F41.9 [place] [address] [address] Apr, Pneumonia due to infectious organism, un specified laterality, unspecified part of lung J18.9 ; Hypoxia R09.02 ; Bradycardia R00.1 ; History of Clostridium difficile Z87.19 and Primary insomnia F51.01 [place] [address] [address] Apr, Anxiety F41.9 [place] [address] [address] Apr, [place] [address] [address] Mar, Anxiety F41.9 [place] [address] [address] Feb, [place] [address] [address] Feb, [place] [address] [address] Feb, Abnormal finding on urinalysis R82.90 [facility] [address] [address] Feb, [place] [address] [address] Feb, Shortness of breath R06.02 ; Tachycardia R00.0 ; Cough R05 ; Ill feeling R68.89 and Abnormal finding on urinalysis R82.90 [place] [address] [address] Feb, Anxiety F41.9 [facility] [address] [facility] [address] [id number] [place] [address] Feb, Sore throat J02.9 and Acute diffuse otitis externa of left ear H60.312 [place] [address] [address] Jan, [place] [address] [address] Jan, [place] [address] [id number] [id number] Jan, [place] [address] [address] Jan, Depression, unspecified depression type F32.9 ; Chronic bronchitis, unspecified chronic bronchitis type J42 ; Chronic pain syndrome G89.4 and Anxiety F41.9 [facility] [address] [address] Jan, [place] [address] [address] Jan, [place] [address] [address] Jan, [place] [address] [place] [id number] [place] [id number] Jan, Chronic pain syndrome G89.4 [facility] [address] [place] [id number] Dec History of right knee surgery Z98.890 [place] [address] [address] Dec, [place] [address] [address] Dec, Chronic pain syndrome G89.4 [place] [address] [address] November, Anxiety F41.9 [facility] [id number] [place] [address] November, Acute cystitis without hemat uria N30.00 [facility] [place] [address] [place] [id number] [place] [address] November, Fever, unspecified fever cau se R50.9 and Acute cystitis without hematuria N30.00 [place] [address] [address] November, Chronic pain syndrome G89.4 [place] [address] [address] Oct, Anxiety F41.9 [place] [address] [address] Oct, Chronic pain syndrome G89.4 [place] [address] [address] Oct, Chronic pain syndrome G89.4 [place] [address] [address] Oct, [place] [address] [address] Oct, Chronic pain syndrome G89.4 ; Pain in ri ght knee M25.561 ; History of Clostridium difficile Z87.19 ; Iron deficiency anemia, unspecified iron deficiency anemia type D50.9 ; Peripheral vascular disease, unspecified I73.9 and Atrial fibrillation I48.91 [place] [address] [address] Oct, [facility] [address] [place] [id number] [place] [address] Oct, Chronic pain syndrome G89.4 [facility] [address] [place] [id number] [place] [address] Sep, [facility] [address] [place] [id number] [place] [address] Sep, Depression, unspecified depression type F32.9 ; Chronic bronchitis, unspecified chronic bronchitis type J42 ; Chronic pain syndrome G89.4 and Anxiety F41.9 [facility] [address] [place] [id number] Sep History of Clostridium difficile infection Z86.19 and History of stroke Z86.73 [facility] [id number] [place] [id number] Sep, Anxiety F41.9 [facility] [address] [address] Sep, Chronic pain syndrome G89.4 [facility] [address] [place] [id number] [place] [address] Sep, [facility] [address] [id number] [id number] Sep, [facility] [address] [address] Aug, Anxiety F41.9 [facility] [address] [address] Aug, Anxiety F41.9 [facility] [address] [address] 16 Aug, 2016 [facility] [address] [address] 14 Aug, 2016 Acute knee pain, unspecified laterality M25.569 [facility] [address] [address] 13 Aug, 2016 [facility] [address] [id number] [place] [address] Aug, Chronic pain syndrome G89.4 [facility] [address] [place] [id number] [place] [address] Aug, [facility] [address] [id number] [place] [address] Aug, [facility] [address] [place] [id number] [place] [address] Jul, [facility] [address] [address] Jul, Anxiety F41.9 [facility] [address] [place] [id number] [place] [address] Jul, Clostridium difficile diarrhea A04.7 [facility] [address] [place] [id number] Jul Clostridium difficile diarrhea A04.7 ; Chronic pain syndrome G89.4 ; Chronic obstructive pulmon disease w acute lower resp infct J44.0 and Pain in right knee M25.561 [facility] [address] [place] [id number] [id number] Jul, [facility] [address] [facility] [id number] [place] [address] Jul, Anxiety F41.9 and Chronic pa in syndrome G89.4 [facility] [address] [id number] [place] [address] Jun, Anxiety F41.9 [facility] [address] [id number] [place] [address] Jun, Rheumatoid arthritis 714.0 [facility] [address] [place] [id number] [place] [address] Jun, Chronic pain syndrome G89.4 [facility] [address] [place] [id number] [place] [address] Jun, [facility] [address] [address] Jun, [facility] [address] [place] [id number] [place] [address] Jun, History of pneumonia Z87.01 and History of Clostridium difficile Z87.19 [facility] [address] [place] [id number] [place] [address] Jun, [facility] [address] [place] [id number] [place] [address] May, [facility] [address] [address] May, Anxiety F41.9 [place] [address] [address] May, Chronic pain syndrome G89.4 [place] [address] [place] [id number] [place] [address] 15 May, 2016 Chronic bronchitis, unspecified chronic bronchitis type J42 [place] [address] [place] [id number] [place] [address] May, [place] [address] [place] [id number] [place] [address] May, C. difficile diarrhea A04.7 ; Peripheral edema R60.9 ; COPD (chronic obstructive pulmonary disease) J44.9 ; Rheumatoid arthritis, involving unspecified site, unspecified rheumatoid factor presence M06.9 ; Pain in right knee M25.561 ; Pain in left knee M25.562 and Other chronic pain G89.29 [place] [address] [place] [id number] [place] [address] May, [place] [address] [place] [id number] [place] [address] May, [place] [address] [place] [id number] [place] [address] May, Anxiety F41.9 [facility] [address] [place] [id number] [place] [address] Apr, [place] [address] [address] Apr, Chronic pain syndrome G89.4 [place] [address] [address] Apr, Leg pain, left M79.605 [facility] [address] [address] 14 Apr, 2016 [place] [address] [address] Apr, [place] [address] [address] Apr, [place] [address] [address] Mar, Chronic pain syndrome G89.4 [place] [address] [address] Mar, Acute frontal sinusitis, recurrence not specified J01.10 [place] [address] [address] 20 Mar, 2016 Iron deficiency anemia, unspecified iron deficiency anemia type D50.9 ; Rheumatoid arthritis with positive rheumatoid factor, involving unspecified site M05.9 and Depression, unspecified depression type F32.9 [place] [address] [address] Mar, Iron deficiency anemia, unspecified iron deficiency anemia type D50.9 ; Depression, unspecified depression type F32.9 and Rheumatoid arthritis with positive rheumatoid factor, involving unspecified site M05.9 [place] [address] [address] Mar, [place] [address] [address] Mar, [place] [address] [address] Feb, Chronic pain syndrome G89.4 [place] [address] [address] Feb, Status post partial amputation of left f oot Z89.432 ; Status post CVA Z86.73 ; Hemiplegia G81.90 and Anemia, unspecified type D64.9 [place] [address] [address] Feb, [place] [address] [address] Feb, Anemia, unspecified type D64.9 [place] [address] [address] Feb, [place] [address] [address] Feb, Iron deficiency anemia, unspecified iron deficiency anemia type D50.9 [place] [address] [address] Feb, [place] [address] [address] Feb, Chronic bronchitis, unspecified chronic bronchitis type J42 [place] [address] [address] Feb, Iron deficiency anemia, unspecified iron deficiency anemia type D50.9 [place] [address] [address] Feb, Chronic pain syndrome G89.4 [place] [address] [address] Feb, Anemia, unspecified type D64.9 and Hypox ia R09.02 [place] [address] [address] Feb, Anemia, unspecified type D64.9 [place] [address] [address] Jan, [place] [address] [address] Jan, Anemia, unspecified type D64.9 [place] [address] [address] Jan, [facility] [address] [address] Jan, Anemia, unspecified type D64.9 [facility] [address] [address] Jan, Anemia, unspecified type D64.9 [facility] [address] [address] Jan, [facility] [address] [address] Jan, Anemia, unspecified type D64.9 [facility] [address] [address] Jan, [facility] [address] [address] Jan, [facility] [address] [address] Jan, Chronic pain syndrome G89.4 [facility] [address] [address] Jan, Anemia, unspecified type D64.9 [facility] [address] [address] Jan, Dysthymia F34.1 ; Cervicalgia M54.2 ; Fa tigue, unspecified type R53.83 and Depression, unspecified depression type F32.9 [facility] [address] [address] Dec, [facility] [address] [address] Dec, Anxiety F41.9 [facility] [address] [address] Dec, Chronic pain syndrome G89.4 [facility] [address] [address] November, [place] [id number] [place] [id number] [place] [address] November, Edema R60.9 and Dizziness R42 [facility] [address] [address] November, [facility] [address] [address] November, [facility] [address] [address] November, COPD (chronic obstructive pulmonary dise ase) J44.9 ; Increased tracheal secretions J39.8 and Edema R60.9 [facility] [address] [place] [address] Oct, [facility] [address] [place] [address] Oct, Shortness of breath R06.02 a nd Edema R60.9 [facility] [address] [address] Oct, Chronic bronchitis, unspecified chronic bronchitis type J42 ; Peripheral vascular disease, unspecified I73.9 ; Rheumatoid arthritis M06.9 and Atrial fibrillation I48.91 [facility] [id number] [place] [address] Oct, [facility] [address] [address] Oct, [facility] [address] [address] Oct, [facility] [address] [address] Oct, [facility] [address] [place] [address] Oct, COPD exacerbation J44.1 [facility] [address] [address] Sep, [facility] [address] [place] [address] Sep, [facility] [address] [address] Sep, [facility] [address] [address] Aug, [facility] [address] [address] Aug, 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 and PVD (peripher al vascular disease) I73.9 [facility] [address] [address] Aug, Bronchitis J40 ; COPD (chronic obstructi ve pulmonary disease) J44.9 and Dysthymia F34.1 [facility] [address] [address] Aug, [facility] [address] [address] Jul, [facility] [address] [address] Jul, [facility] [address] [address] Jul, [facility] [address] [address] Jun, [facility] [address] [address] Jun, [facility] [address] [address] Jun, Peripheral vascular disease I73.9 [facility] [address] [address] Jun, [facility] [address] [address] Jun, [facility] [address] [address] Jun, Leg pain, left M79.605 ; Dysphagia, unsp ecified dysphagia R13.10 ; Insomnia, unspecified type G47.00 ; PVD (peripheral vascular disease) I73.9 and Status post partial amputation of left foot Z89.432 [facility] [id number] [place] [address] May, [facility] [address] [address] May, [facility] [address] [address] May, [facility] [address] [address] May, [facility] [address] [address] May, [facility] [address] [address] Apr, [facility] [address] [address] Apr, [facility] [address] [address] Mar, [facility] [address] [address] Mar, [facility] [address] [address] Feb, [facility] [address] [address] Feb, Nicotine abuse 305.1 ; Arthralgia 719.40 and 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 [facility] [address] [address] Feb, [facility] [address] [address] Jan, [facility] [address] [address] Jan, [facility] [id number] [place] [address] Jan, [facility] [id number] [place] [address] Jan, [facility] [id number] [place] [address] Jan, 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 ; Rheumatoid arth ritis 714.0 ; Hypertension 401.9 ; GERD (gastroesophageal reflux disease) 530.81 ; Nicotine addiction 305.1 and Leukocytosis 288.60 [facility] [id number] [place] [address] Jan, [facility] [id number] [place] [address] Jan, [facility] [id number] [place] [address] Jan, [facility] [id number] [place] [address] Jan, [facility] [id number] [place] [address] Jan, [facility] [id number] [place] [address] Dec, [facility] [id number] [place] [address] Dec, [facility] [id number] [place] [address] Dec, [facility] [id number] [place] [address] Dec, [facility] [id number] [place] [address] November, [facility] [id number] [place] [address] November, [facility] [id number] [place] [address] November, Shortness of breath 786.05 [facility] [id number] [place] [address] November, Rheumatoid arthritis 714.0 [facility] [address] [address] November, 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 [facility] [id number] [place] [address] November, Neuropathy 355.9 ; Insomnia 780.52 ; Dys thymia 300.4 ; Shortness of breath 786.05 ; Rheumatoid arthritis 714.0 and Nausea 787.02 [facility] [id number] [place] [address] November, [facility] [address] [address] November, [facility] [id number] [place] [address] Oct, [facility] [address] [address] Oct, [facility] [id number] [place] [address] Oct, [facility] [address] [address] Oct, [facility] [address] [address] Sep, [facility] [id number] [place] [address] Sep, [facility] [id number] [place] [address] Sep, [facility] [address] [address] Sep, [facility] [id number] [place] [address] Sep, [facility] [address] [address] Sep, [facility] [place] [facility] [address] [id number] [place] [address] Sep, [facility] [place] [facility] [address] [id number] [place] [address] Sep, [facility] [place] [facility] [address] [id number] [place] [address] Aug, [facility] [place] [facility] [address] [id number] [place] [address] Aug, [facility] [place] [facility] [address] [id number] [place] [address] Aug, [facility] [place] [facility] [address] [id number] [place] [address] Aug, [facility] [place] [facility] [address] [id number] [place] [address] Aug, [facility] [place] [facility] [address] [id number] [place] [address] Aug, [facility] [place] [facility] [address] [id number] [place] [address] Jul, [facility] [place] [facility] [address] [id number] [place] [address] Jul, [facility] [place] [facility] [address] [id number] [place] [address] Jul, [facility] [place] [facility] [address] [id number] [place] [address] Jul, [facility] [place] [facility] [address] [id number] [place] [address] Jul, [facility] [place] [facility] [address] [id number] [place] [address] Jul, [facility] [place] [facility] [address] [id number] [place] [address] Jul, [facility] [place] [facility] [address] [id number] [place] [address] Jul, [facility] [place] [facility] [address] [id number] [place] [address] Jul, [facility] [place] [facility] [address] [id number] [place] [address] Jul, [facility] [place] [facility] [address] [facility] [id number] [place] [address] Jun, [facility] [place] [facility] [address] [id number] [place] [address] Jun, [facility] [place] [facility] [address] [id number] [place] [address] Jun, [facility] [place] [facility] [address] [facility] [address] [id number] [place] [address] Jun, [facility] [place] [facility] [address] [id number] [place] [address] Jun, [facility] [place] [facility] [address] [id number] [place] [address] Jun, [facility] [place] [facility] [address] [id number] [place] [address] Jun, [facility] [place] [facility] [address] [id number] [place] [address] Jun, [facility] [place] [facility] [address] [id number] [place] [address] Jun, [facility] [place] [facility] [address] [id number] [place] [address] Jun, [facility] [place] [facility] [address] [id number] [place] [address] Jun, [facility] [place] [facility] [address] [id number] [place] [address] Jun, [facility] [place] [facility] [address] [id number] [place] [address] Jun, [facility] [place] [facility] [address] [id number] [place] [address] Jun, [facility] [place] [facility] [address] [id number] [place] [address] Jun, [facility] [place] [facility] [address] [id number] [place] [address] Jun, [facility] [place] [facility] [address] [id number] [place] [address] May, [facility] [place] [facility] [address] [id number] [place] [address] May, [facility] [place] [facility] [address] [id number] [place] [address] May, [facility] [place] [facility] [address] [id number] [place] [address] May, [facility] [place] [facility] [address] [id number] [place] [address] May, [facility] [place] [facility] [address] [id number] [place] [address] May, [facility] [place] [facility] [address] [id number] [place] [address] May, [facility] [place] [facility] [address] [id number] [place] [address] May, [facility] [place] [facility] [address] [id number] [place] [address] May, [facility] [place] [facility] [address] [id number] [place] [address] Apr, [facility] [place] [facility] [address] [id number] [place] [address] Apr, [facility] [place] [facility] [address] [id number] [place] [address] Apr, [facility] [place] [facility] [address] [id number] [place] [address] Apr, [facility] [place] [facility] [id number] [place] [address] Apr, [facility] [place] [facility] [address] [id number] [place] [address] Apr, [facility] [place] [facility] [address] [id number] [place] [address] Apr, [facility] [place] [facility] [address] [facility] [id number] [place] [address] Apr, 2013 [facility] [place] [facility] [address] [id number] [place] [address] Apr, 2013 [facility] [place] [facility] [address] [id number] [place] [address] Apr, [facility] [place] [facility] [address] [id number] [place] [address] Apr, [facility] [place] [facility] [address] [id number] [place] [address] Apr, [facility] [place] [facility] [address] [id number] [place] [address] Mar, [facility] [place] [facility] [address] [id number] [place] [address] Mar, 2013 [facility] [place] [facility] [address] [id number] [place] [address] Mar, 2013 [facility] [place] [facility] [address] [id number] [place] [address] Mar, 2013 [facility] [place] [facility] [address] [id number] [place] [address] Mar, 2013 [facility] [place] [facility] [address] [id number] [place] [address] Mar, 2013 [facility] [place] [facility] [address] [id number] [place] [address] Mar, 2013 [facility] [place] [facility] [address] [id number] [place] [address] Mar, 2013 [facility] [place] [facility] [address] [id number] [place] [address] Mar, 2013 [facility] [place] [facility] [address] [id number] [place] [address] Mar, 2013 [facility] [place] [facility] [address] [id number] [place] [address] Feb, [facility] [place] [facility] [address] [id number] [place] [address] Feb, [facility] [place] [facility] [address] [id number] [facility] [place] [address] Feb, [facility] [place] [facility] [address] [id number] [place] [address] Feb, [facility] [place] [facility] [address] [facility] [address] [id number] [facility] [place] [address] Feb, [facility] [place] [facility] [address] [id number] [place] [address] Feb, [facility] [place] [facility] [address] [id number] [place] [address] Feb, [facility] [place] [facility] [address] [id number] [place] [address] Feb, [facility] [place] [facility] [address] [facility] [address] [id number] [facility] [place] [address] Feb, [facility] [place] [facility] [address] [id number] [facility] [place] [address] Feb, [facility] [place] [facility] [address] [id number] [facility] [place] [address] Feb, [facility] [place] [facility] [address] [id number] [place] [address] Feb, [facility] [place] [facility] [address] [facility] 2001 [id number] [place] [address] Feb, [facility] [place] [facility] [address] [id number] [place] [address] Feb, [facility] [place] [facility] [address] [id number] [facility] [place] [address] Feb, [facility] [place] [facility] [address] [id number] [facility] [place] [address] Feb, [facility] [place] [facility] [address] [facility] [address] [id number] [place] [address] Jan, [facility] [place] [facility] [address] [facility] [address] [id number] [facility] [place] [address] Jan, [facility] [place] [facility] [address] [facility] [address] [id number] [place] [address] 16 Jan, 2014 [facility] [place] [facility] [address] [id number] [place] [address] 16 Jan, 2014 [facility] [place] [facility] [address] [facility] [address] [id number] [place] [address] Jan, [facility] [place] [facility] [address] [id number] [place] [address] Jan, [facility] [place] [facility] [address] [facility] [address] [id number] [place] [address] Dec, [facility] [place] [facility] [address] [id number] [place] [address] Dec, [facility] [place] [facility] [address] [id number] [place] [address] Dec, [facility] [place] [facility] [address] [id number] [place] [address] Dec, [facility] [place] [facility] [address] [id number] [place] [address] Dec, [facility] [place] [facility] [address] [facility] [address] [id number] [place] [address] Dec, [facility] [place] [facility] [address] [id number] [place] [address] Dec, [facility] [place] [facility] [address] [id number] [place] [address] Dec, [facility] [place] [facility] [address] [id number] [place] [address] November, [facility] [place] [facility] [address] [facility] [address] [id number] [place] [address] November, [facility] [place] [facility] [address] [id number] [place] [address] November, [facility] [place] [facility] [address] [id number] [place] [address] November, [facility] [place] [facility] [address] [id number] [place] [address] November, [facility] [place] [facility] [address] [id number] [place] [address] November, [facility] [place] [facility] [address] [id number] [place] [address] Oct, [facility] [place] [facility] [address] [id number] [place] [address] Oct, [facility] [place] [facility] [address] [id number] [place] [address] Oct, [facility] [place] [facility] [address] [id number] [place] [address] Oct, [facility] [place] [facility] [address] [id number] [place] [address] Sep, [facility] [place] [facility] [address] [id number] [place] [address] Sep, [facility] [place] [facility] [address] [id number] [place] [address] Sep, [facility] [place] [facility] [address] [id number] [place] [address] Sep, [facility] [place] [facility] [address] [id number] [place] [address] Sep, [facility] [place] [facility] [address] [id number] [place] [address] Sep, [facility] [place] [facility] [address] [id number] [place] [address] Aug, [facility] [place] [facility] [address] [id number] [place] [address] Aug, [facility] [place] [facility] [address] [id number] [place] [address] Aug, [facility] [place] [facility] [address] [id number] [place] [address] Aug, [facility] [place] [facility] [address] [id number] [place] [address] Aug, [facility] [place] [facility] [address] [id number] [place] [address] Aug, [facility] [place] [facility] [address] [facility] 2001 [id number] [place] [address] Jul, [facility] [place] [facility] [address] [id number] [place] [address] Jul, [facility] [place] [facility] [address] [id number] [place] [address] Jul, [facility] [place] [facility] [address] [id number] [place] [address] Jul, [facility] [place] [facility] [address] [id number] [place] [address] Jul, [facility] [place] [facility] [address] [id number] [place] [address] Jul, [facility] [place] [facility] [address] [id number] [place] [address] Jul, [facility] [place] [facility] [address] [id number] [place] [address] Jul, [facility] [place] [address] [id number] [place] [address] Jul, [facility] [address] [id number] [place] [address] Jul, [facility] [address] [id number] [place] [address] Jul, [facility] [address] [id number] [place] [address] Jul, [facility] [address] [id number] [place] [address] Jul, [facility] [address] [id number] [place] [address] Jul, [facility] [address] [id number] [place] [address] Jul, [facility] [address] [id number] [place] [address] Jun, [facility] [address] [id number] [place] [address] 18 Jun, 2013 [facility] [address] [id number] [place] [address] Jun, [facility] [address] [id number] [place] [address] Jun, [facility] [address] [id number] [place] [address] May, [facility] [address] [id number] [place] [address] May, [facility] [address] [facility] [id number] May, [facility] [address] [id number] [place] [address] May, [facility] [address] [id number] [place] [address] May, [facility] [address] [id number] [place] [address] May, [facility] [address] [id number] [place] [address] May, [facility] [address] [id number] [place] [address] May, [facility] [address] [id number] [place] [address] May[facility] [address] [facility] [id number] May, [facility] [address] [id number] [place] [address] May, [facility] [address] [facility] [id number] May, [facility] [address] [id number] [place] [address] May, [facility] [address] [facility] [id number] May, [facility] [id number] [place] [address] May, IMMUNIZATIONS No Known Immunizations SOCIAL HISTORY [...] Hospitalization History sepsis, pneumonia, diarrhea--[facility] Hospitalization History recurrent cdiff, pneumonia-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
--- OUTSIDE RECORDS SUMMARY | 2019-11-07 10:19 | XMS REPORT ---
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 578136356 Problem COPD (chronic obstructive pulmonary disease) J44.9 Active 27112673 Problem Hypertension I10 Active 1214608 3 Problem Primary insomnia F51.01 Active 397 2004 Problem Hx of Clostridium difficile infection Z86.19 Active 793019083 Problem Chronic obstructive pulmon disease w acute lower resp infc t J44.0 Active 203773656 Problem History of arthroplasty of right knee Z96.651 Active 555050255 Problem Leg pain, left M79.605 Active 53421 7008 Problem Status post partial amputation of left foot Z89.43 2 Active 098338640 Problem Edema R60.9 Active 753455567 Problem Tobacco abuse, 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 Ac tive 906793367 Problem Anxiety F41.9 Active 85166022 Problem Chronic pain syndrome G89.4 Active 588108061 Problem Anemia, unspecified type D64.9 Activ e 390678028 Problem Depression, unspecified depression type F32.9 Active 99802388 Problem Other chronic pain G89.29 Active 8 0018638 Problem Iron deficiency anemia, unspecified iron deficiency an emia type D50.9 Active 32809574 Problem Insomnia, unspecified G47.00 Active 460499973 Problem Seasonal allergic rhinitis due to pollen J30.1 Active 78756501 Problem History of oral cancer Z85.819 Active 816165257 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 36 1978800 Problem Atrial fibrillation I48.91 Active 46314307 Problem Chronic obstructive pulmonary disease with (acute) exa cerbation J44.1 Active 863429952 Problem Rheumatoid arthritis M06.9 Active 53869435 Problem Dysthymia F34.1 Active 62888937 Problem Neuropathy G62.9 Active 847992610 Problem Rheumatoid arthritis with po sitive rheumatoid factor, involving unspecified site M05.9 Active 12886615 Problem Hemiplegia and hemiparesis f ollowing cerebral infarction affecting right dominant side I69.351 Active 418127478 Problem Cancer of neck C76.0 Active 94535 9000 ALLERGIES No Information ENCOUNTERS Encounter Location Date Diagnosis [place] [address] [address] November, [place] [address] [address] Sep, [place] [address] [address] 28 Aug, 2019 Chronic pain syndrome G89.4 [place] [address] [place] [address] 19 Aug, 2019 Chronic obstructive pulmonar y disease with (acute) exacerbation J44.1 [place] [address] [address] 12 Aug, 2019 Single subsegmental pulmonary embolism w ithout acute cor pulmonale I26.93 ; Rheumatoid arthritis with positive rheumatoid factor, involving unspecified site M05.9 ; Chronic pain syndrome G89.4 ; Leg pain, left M79.605 and 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 [place] [address] [address] Aug, [place] [address] [address] 11 Aug, 2019 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 [place] [address] [address] 07 Aug, 2019 Chronic pain syndrome G89.4 [facility] [address] [place] [id number] [place] [address] Jul, Primary insomnia F51.01 [facility] [address] [place] [address] [id number] [place] [address] Jul, Chronic pain syndrome G89.4 [facility] [address] [place] [address] [id number] [place] [address] Jul, [facility] [address] [address] Jul, [facility] [address] [address] Jul, Rheumatoid arthritis with positive rheum atoid factor, involving unspecified site M05.9 and Chronic pain syndrome G89.4 [facility] [address] [place] [address] [place] [address] Jul, [facility] [address] [address] Jun, Rheumatoid arthritis with positive rheum atoid factor, involving unspecified site M05.9 [place] [address] [address] Jun, Chronic pain syndrome G89.4 ; Rheumatoid arthritis with positive rheumatoid factor, involving unspecified site M05.9 and Anxiety F41.9 [facility] [address] [place] [address] [id number] [place] [address] Jun, [facility] [address] [address] Jun, Hemorrhoids, unspecified hemorrhoid type K64.9 [facility] [address] [address] Jun, Hemorrhoids, unspecified hemorrhoid type K64.9 ; Cancer of neck C76.0 and Drug-induced constipation K59.03 [facility] [address] [place] [address] [id number] [place] [address] Jun, [facility] [address] [place] [address] [address] [place] [address] Jun, [facility] [address] [address] Jun, Rheumatoid arthritis with positive rheum atoid factor, involving unspecified site M05.9 [facility] [address] [place] [address] [place] [address] May, [facility] [address] [address] May, Rheumatoid arthritis with positive rheum atoid factor, involving unspecified site M05.9 [place] [address] [address] Apr, Primary insomnia F51.01 [place] [address] [address] Apr, Rheumatoid arthritis with positive rheum atoid factor, involving unspecified site M05.9 [place] [address] [address] Mar, [facility] [address] [address] Mar, [place] [address] [address] Mar, Rheumatoid arthritis with positive rheum atoid factor, involving unspecified site M05.9 ; Atrial fibrillation I48.91 ; Chronic pain syndrome G89.4 ; Iron deficiency anemia, unspecified iron deficiency anemia type D50.9 and Hemiplegia and hemiparesis following cerebral infarction affecting right dominant side I69.351 [place] [address] [address] Mar, Chronic pain syndrome G89.4 and Primary insomnia F51.01 [facility] [address] [address] Mar, Rheumatoid arthritis with positive rheum atoid factor, involving unspecified site M05.9 [place] [address] [address] Feb, Rheumatoid arthritis with positive rheum atoid factor, involving unspecified site M05.9 ; Chronic pain syndrome G89.4 ; Atrial fibrillation I48.91 ; Iron deficiency anemia, unspecified iron deficiency anemia type D50.9 ; Hemiplegia and hemiparesis following cerebral infarction affecting right dominant side I69.351 and Primary insomnia F51.01 [facility] [address] [address] Feb, Chronic pain syndrome G89.4 [facility] [address] [address] Jan, Chronic pain syndrome G89.4 [facility] [address] [address] Jan, [facility] [address] [address] Jan, [facility] [address] [address] Dec, [facility] [address] [address] Dec, Chronic pain syndrome G89.4 [facility] [address] [address] Dec, [facility] [address] [address] November, Chronic pain syndrome G89.4 [facility] [address] [address] Oct, Chronic pain syndrome G89.4 [facility] [address] [address] Oct, [facility] [address] [address] Sep, Chronic pain syndrome G89.4 [facility] [address] [address] Sep, Leg pain, left M79.605 ; Right leg pain M79.604 and Reactive cervical nodes R59.0 [facility] [address] [place] [address] [id number] [place] [address] 14 Sep, 2018 [facility] [address] [address] Sep, Neuropathy G62.9 [facility] [id number] [place] [id number] Sep, [facility] [address] [place] [address] [place] [address] Sep, Lymphadenopathy of left cervical region R59.0 [facility] [address] [address] Sep, Lymphadenopathy of left cervical region R59.0 and Neuropathy G62.9 [facility] [address] [place] [address] [id number] [place] [address] Aug, Chronic pain syndrome G89.4 [facility] [address] [place] [address] [address] [place] [address] Aug, [facility] [address] [address] 04 Aug, 2018 Peripheral vascular disease, unspecified I73.9 ; Other chronic pain G89.29 ; Chronic obstructive pulmon disease w acute lower resp infct J44.0 and Primary insomnia F51.01 [facility] [address] [address] Aug, Chronic pain syndrome G89.4 [facility] [address] [place] [address] [address] [place] [address] Jul, Chronic pain syndrome G89.4 [facility] [address] [address] Jun, Chronic pain syndrome G89.4 [facility] [address] [place] [id number] [place] [address] May, Chronic pain syndrome G89.4 [facility] [address] [facility] [id number] [address] [place] [address] Apr, Cough R05 and Viral illness B34.9 [facility] [address] [place] [address] [id number] [place] [address] Apr, Encounter for immunization Z23 [facility] [address] [place] [address] [id number] [place] [address] 16 Apr, 2018 Chronic pain syndrome G89.4 [facility] [address] [facility] [id number] [address] [place] [address] Apr, Left acute otitis media H66. 92 [facility] [address] [place] [id number] [place] [address] Mar, Rheumatoid arthritis M06.9 ; Other chron ic pain G89.29 ; History of oral cancer Z85.819 and History of tachycardia Z87.898 [place] [address] [address] Mar, Chronic pain syndrome G89.4 [facility] [address] [address] Feb, Chronic pain syndrome G89.4 [facility] [address] [address] Feb, Chronic pain syndrome G89.4 [facility] [address] [address] Jan, Chronic pain syndrome G89.4 [place] [address] [address] Jan, [facility] [address] [address] Dec, Chronic pain syndrome G89.4 [facility] [address] [address] November, Chronic pain syndrome G89.4 [facility] [address] [address] November, [facility] [address] [address] Oct, Chronic pain syndrome G89.4 [facility] [address] [address] Oct, [facility] [address] [address] Oct, Chronic pain syndrome G89.4 [facility] [address] [address] Oct, [facility] [address] [address] Oct, [facility] [address] [address] Sep, Left upper quadrant pain R10.12 ; Chroni c pain syndrome G89.4 ; Left lower quadrant pain R10.32 ; Other chronic pain G89.29 ; Sacrococcygeal disorders, not elsewhere classified M53.3 and Seasonal allergic rhinitis due to pollen J30.1 [facility] [address] [address] Sep, Chronic pain syndrome G89.4 [facility] [address] [address] Sep, [facility] [address] [address] Aug, Chronic pain syndrome G89.4 [facility] [address] [address] Aug, [facility] [address] [address] Aug, Insomnia, unspecified G47.00 [facility] [address] [address] Jul, [facility] [address] [address] Jul, [facility] [address] [address] Jul, Chronic pain syndrome G89.4 [place] [address] [address] Jun, Chronic pain syndrome G89.4 [facility] [address] [address] Jun, Chronic pain syndrome G89.4 [facility] [address] [address] May, [place] [address] [address] May, Shortness of breath R06.02 ; Peripheral vascular disease, unspecified I73.9 ; Pain in right knee M25.561 ; Other chronic pain G89.29 ; Chest wall pain R07.89 ; Chronic pain syndrome G89.4 ; Primary insomnia F51.01 and Ear pain, left H92.02 [place] [address] [address] May, Anxiety F41.9 [place] [address] [address] Apr, Pneumonia due to infectious organism, un specified laterality, unspecified part of lung J18.9 ; Hypoxia R09.02 ; Bradycardia R00.1 ; History of Clostridium difficile Z87.19 and Primary insomnia F51.01 [place] [address] [address] Apr, Anxiety F41.9 [place] [address] [address] Apr, [place] [address] [address] Mar, Anxiety F41.9 [place] [address] [address] Feb, [place] [address] [address] Feb, [place] [address] [address] Feb, Abnormal finding on urinalysis R82.90 [facility] [address] [address] Feb, [place] [address] [address] Feb, Shortness of breath R06.02 ; Tachycardia R00.0 ; Cough R05 ; Ill feeling R68.89 and Abnormal finding on urinalysis R82.90 [place] [address] [address] Feb, Anxiety F41.9 [facility] [address] [facility] [id number] [address] [address] Feb, Sore throat J02.9 and Acute diffuse otitis externa of left ear H60.312 [place] [address] [address] Jan, [place] [address] [address] Jan, [place] [address] [place] [id number] [id number] Jan, [place] [address] [address] Jan, Depression, unspecified depression type F32.9 ; Chronic bronchitis, unspecified chronic bronchitis type J42 ; Chronic pain syndrome G89.4 and Anxiety F41.9 [facility] [address] [address] Jan, [place] [address] [address] Jan, [place] [address] [address] Jan, [place] [address] [place] [id number] [id number] Jan, Chronic pain syndrome G89.4 [facility] [address] [place] [id number] Dec History of right knee surgery Z98.890 [place] [address] [address] Dec, [place] [address] [address] Dec, Chronic pain syndrome G89.4 [place] [address] [address] November, Anxiety F41.9 [facility] N [facility] [id number] [address] [place] [address] November, Acute cystitis without hemat uria N30.00 [facility] [place] [address] [place] [id number] [place] [address] November, Fever, unspecified fever cau se R50.9 and Acute cystitis without hematuria N30.00 [place] [address] [address] November, Chronic pain syndrome G89.4 [place] [address] [address] Oct, Anxiety F41.9 [place] [address] [address] Oct, Chronic pain syndrome G89.4 [place] [address] [address] Oct, Chronic pain syndrome G89.4 [place] [address] [address] Oct, [place] [address] [address] Oct, Chronic pain syndrome G89.4 ; Pain in ri ght knee M25.561 ; History of Clostridium difficile Z87.19 ; Iron deficiency anemia, unspecified iron deficiency anemia type D50.9 ; Peripheral vascular disease, unspecified I73.9 and Atrial fibrillation I48.91 [place] [address] [address] Oct, [facility] [address] [place] [address] [place] [address] Oct, Chronic pain syndrome G89.4 [facility] [address] [place] [address] [address] [place] [address] Sep, [facility] [address] [place] [id number] [place] [address] Sep, Depression, unspecified depression type F32.9 ; Chronic bronchitis, unspecified chronic bronchitis type J42 ; Chronic pain syndrome G89.4 and Anxiety F41.9 [facility] [address] [place] [id number] Sep History of Clostridium difficile infection Z86.19 and History of stroke Z86.73 [facility] [address] [place] [id number] [id number] Sep, Anxiety F41.9 [facility] [address] [address] Sep, Chronic pain syndrome G89.4 [facility] [address] [place] [address] [place] [address] Sep, [facility] [address] [id number] [id number] Sep, [facility] [address] [address] Aug, Anxiety F41.9 [facility] [address] [address] Aug, Anxiety F41.9 [facility] [address] [address] 16 Aug, 2016 [facility] [address] [address] 14 Aug, 2016 Acute knee pain, unspecified laterality M25.569 [facility] [address] [address] 13 Aug, 2016 [facility] [id number] [place] [address] Aug, Chronic pain syndrome G89.4 [facility] [address] [place] [address] [id number] [place] [address] Aug, [facility] [id number] [place] [address] Aug, [facility] [address] [place] [address] [address] [place] [address] Jul, [facility] [address] [address] Jul, Anxiety F41.9 [facility] [address] [place] [id number] [place] [address] Jul, Clostridium difficile diarrhea A04.7 [employer] [facility] [address] [place] [id number] Jul Clostridium difficile diarrhea A04.7 ; Chronic pain syndrome G89.4 ; Chronic obstructive pulmon disease w acute lower resp infct J44.0 and Pain in right knee M25.561 [facility] [address] [id number] [id number] Jul, [facility] [address] [facility] [id number] [address] [place] [address] Jul, Anxiety F41.9 and Chronic pa in syndrome G89.4 [facility] [id number] [place] [address] Jun, Anxiety F41.9 [facility] [id number] [place] [address] Jun, Rheumatoid arthritis 714.0 [facility] [address] [place] [id number] [place] [address] Jun, Chronic pain syndrome G89.4 [facility] [address] [place] [id number] [place] [address] Jun, [facility] [address] [address] Jun, [facility] [address] [id number] [place] [address] Jun, History of pneumonia Z87.01 and History of Clostridium difficile Z87.19 [facility] [address] [place] [id number] [place] [address] Jun, [facility] [address] [place] [address] [id number] [place] [address] May, [facility] [address] [address] May, Anxiety F41.9 [place] [address] [address] May, Chronic pain syndrome G89.4 [place] [address] [place] [id number] [place] [address] 15 May, 2016 Chronic bronchitis, unspecified chronic bronchitis type J42 [place] [address] [place] [address] [place] [address] May, [place] [address] [place] [id number] [place] [address] May, C. difficile diarrhea A04.7 ; Peripheral edema R60.9 ; COPD (chronic obstructive pulmonary disease) J44.9 ; Rheumatoid arthritis, involving unspecified site, unspecified rheumatoid factor presence M06.9 ; Pain in right knee M25.561 ; Pain in left knee M25.562 and Other chronic pain G89.29 [place] [address] [place] [address] [id number] [place] [address] May, [place] [address] [place] [address] [place] [address] May, [place] [address] [place] [address] [place] [address] May, Anxiety F41.9 [facility] [address] [place] [id number] [place] [address] Apr, [place] [address] [address] Apr, Chronic pain syndrome G89.4 [place] [address] [address] Apr, Leg pain, left M79.605 [facility] [address] [address] 14 Apr, 2016 [place] [address] [address] Apr, [place] [address] [address] Apr, [place] [address] [address] Mar, Chronic pain syndrome G89.4 [place] [address] [address] Mar, Acute frontal sinusitis, recurrence not specified J01.10 [place] [address] [address] 20 Mar, 2016 Iron deficiency anemia, unspecified iron deficiency anemia type D50.9 ; Rheumatoid arthritis with positive rheumatoid factor, involving unspecified site M05.9 and Depression, unspecified depression type F32.9 [place] [address] [address] Mar, Iron deficiency anemia, unspecified iron deficiency anemia type D50.9 ; Depression, unspecified depression type F32.9 and Rheumatoid arthritis with positive rheumatoid factor, involving unspecified site M05.9 [place] [address] [address] Mar, [place] [address] [address] Mar, [place] [address] [address] Feb, Chronic pain syndrome G89.4 [place] [address] [address] Feb, Status post partial amputation of left f oot Z89.432 ; Status post CVA Z86.73 ; Hemiplegia G81.90 and Anemia, unspecified type D64.9 [place] [address] [address] Feb, [place] [address] [address] Feb, Anemia, unspecified type D64.9 [place] [address] [address] Feb, [place] [address] [address] Feb, Iron deficiency anemia, unspecified iron deficiency anemia type D50.9 [place] [address] [address] Feb, [place] [address] [address] Feb, Chronic bronchitis, unspecified chronic bronchitis type J42 [place] [address] [address] Feb, Iron deficiency anemia, unspecified iron deficiency anemia type D50.9 [place] [address] [address] Feb, Chronic pain syndrome G89.4 [place] [address] [address] Feb, Anemia, unspecified type D64.9 and Hypox ia R09.02 [place] [address] [address] Feb, Anemia, unspecified type D64.9 [place] [address] [address] Jan, [place] [address] [address] Jan, Anemia, unspecified type D64.9 [place] [address] [address] Jan, [facility] [address] [address] Jan, Anemia, unspecified type D64.9 [facility] [address] [address] Jan, Anemia, unspecified type D64.9 [facility] [address] [address] Jan, [facility] [address] [address] Jan, Anemia, unspecified type D64.9 [facility] [address] [address] Jan, [facility] [address] [address] Jan, [facility] [address] [address] Jan, Chronic pain syndrome G89.4 [facility] [address] [address] Jan, Anemia, unspecified type D64.9 [facility] [address] [address] Jan, Dysthymia F34.1 ; Cervicalgia M54.2 ; Fa tigue, unspecified type R53.83 and Depression, unspecified depression type F32.9 [facility] [address] [address] Dec, [facility] [address] [address] Dec, Anxiety F41.9 [facility] [address] [address] Dec, Chronic pain syndrome G89.4 [facility] [address] [address] November, [place] [id number] [place] [address] November, Edema R60.9 and Dizziness R42 [facility] [address] [address] November, [facility] [address] [address] November, [facility] [address] [address] November, COPD (chronic obstructive pulmonary dise ase) J44.9 ; Increased tracheal secretions J39.8 and Edema R60.9 [facility] [address] [place] [address] Oct, [facility] [address] [place] [address] Oct, Shortness of breath R06.02 a nd Edema R60.9 [place] [address] [address] Oct, Chronic bronchitis, unspecified chronic bronchitis type J42 ; Peripheral vascular disease, unspecified I73.9 ; Rheumatoid arthritis M06.9 and Atrial fibrillation I48.91 [facility] [id number] [place] [address] Oct, [facility] [address] [address] Oct, [facility] [address] [address] Oct, [facility] [address] [address] Oct, [facility] [address] [place] [address] Oct, COPD exacerbation J44.1 [facility] [address] [address] Sep, [facility] [address] [place] [address] Sep, [facility] [address] [address] Sep, [facility] [address] [address] Aug, [facility] [address] [address] Aug, 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 and PVD (peripher al vascular disease) I73.9 [facility] [address] [address] Aug, Bronchitis J40 ; COPD (chronic obstructi ve pulmonary disease) J44.9 and Dysthymia F34.1 [facility] [address] [address] Aug, [facility] [address] [address] Jul, [facility] [address] [address] Jul, [facility] [address] [address] Jul, [facility] [address] [address] Jun, [facility] [address] [address] Jun, [facility] [address] [address] Jun, Peripheral vascular disease I73.9 [facility] [address] [address] Jun, [facility] [address] [address] Jun, [facility] [address] [address] Jun, Leg pain, left M79.605 ; Dysphagia, unsp ecified dysphagia R13.10 ; Insomnia, unspecified type G47.00 ; PVD (peripheral vascular disease) I73.9 and Status post partial amputation of left foot Z89.432 [facility] [id number] [place] [address] May, [facility] [address] [address] May, [facility] [address] [address] May, [facility] [address] [address] May, [facility] [address] [address] May, [facility] [address] [address] Apr, [facility] [address] [address] Apr, [facility] [address] [address] Mar, [facility] [address] [address] Mar, [facility] [address] [address] Feb, [facility] [address] [address] Feb, Nicotine abuse 305.1 ; Arthralgia 719.40 and 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 [facility] [address] [address] Feb, [facility] [address] [address] Jan, [facility] [address] [address] Jan, [facility] [id number] [place] [address] Jan, [facility] [id number] [place] [address] Jan, [facility] [id number] [place] [address] Jan, 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 ; Rheumatoid arth ritis 714.0 ; Hypertension 401.9 ; GERD (gastroesophageal reflux disease) 530.81 ; Nicotine addiction 305.1 and Leukocytosis 288.60 [facility] [id number] [place] [address] Jan, [facility] [id number] [place] [address] Jan, [facility] [id number] [place] [address] Jan, [facility] [id number] [place] [address] Jan, [facility] [id number] [place] [address] Jan, [facility] [id number] [place] [address] Dec, [facility] [id number] [place] [address] Dec, [facility] [id number] [place] [address] Dec, [facility] [id number] [place] [address] Dec, [facility] [id number] [place] [address] November, [facility] [id number] [place] [address] November, [facility] [id number] [place] [address] November, Shortness of breath 786.05 [facility] [id number] [place] [address] November, Rheumatoid arthritis 714.0 [facility] [address] [address] November, 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 [facility] [id number] [place] [address] November, Neuropathy 355.9 ; Insomnia 780.52 ; Dys thymia 300.4 ; Shortness of breath 786.05 ; Rheumatoid arthritis 714.0 and Nausea 787.02 [facility] [id number] [place] [address] November, [facility] [address] [address] November, [facility] [id number] [place] [address] Oct, [facility] [address] [address] Oct, [facility] [id number] [place] [address] Oct, [facility] [address] [address] Oct, [facility] [address] [address] Sep, [facility] [id number] [place] [address] Sep, [facility] [id number] [place] [address] Sep, [facility] [address] [address] Sep, [facility] [id number] [place] [address] Sep, [facility] [address] [address] Sep, [facility] [place] [facility] [id number] [place] [address] Sep, [facility] [place] [facility] [id number] [place] [address] Sep, [facility] [place] [facility] [id number] [place] [address] Aug, [facility] [place] [facility] [id number] [place] [address] Aug, [facility] [place] [facility] [id number] [place] [address] Aug, [facility] [place] [facility] [id number] [place] [address] Aug, [facility] [place] [facility] [id number] [place] [address] Aug, [facility] [place] [facility] [id number] [place] [address] Aug, [facility] [place] [facility] [id number] [place] [address] Jul, [facility] [place] [facility] [id number] [place] [address] Jul, [facility] [place] [facility] [id number] [place] [address] Jul, [facility] [place] [facility] [id number] [place] [address] Jul, [facility] [place] [facility] [id number] [place] [address] Jul, [facility] [place] [facility] [id number] [place] [address] Jul, [facility] [place] [facility] [id number] [place] [address] Jul, [facility] [place] [facility] [id number] [place] [address] Jul, [facility] [place] [facility] [id number] [place] [address] Jul, [facility] [place] [facility] [id number] [place] [address] Jul, [facility] [place] [facility] [address] [facility] [id number] [place] [address] Jun, [facility] [place] [facility] [id number] [place] [address] Jun, [facility] [place] [facility] [id number] [place] [address] Jun, [facility] [place] [facility] [address] [facility] [id number] [place] [address] Jun, [facility] [place] [facility] [id number] [place] [address] Jun, [facility] [place] [facility] [id number] [place] [address] Jun, [facility] [place] [facility] [id number] [place] [address] Jun, [facility] [place] [facility] [id number] [place] [address] Jun, [facility] [place] [facility] [id number] [place] [address] Jun, [facility] [place] [facility] [id number] [place] [address] Jun, [facility] [place] [facility] [id number] [place] [address] Jun, [facility] [place] [facility] [id number] [place] [address] Jun, [facility] [place] [facility] [id number] [place] [address] Jun, [facility] [place] [facility] [id number] [place] [address] Jun, [facility] [place] [facility] [id number] [place] [address] Jun, [facility] [place] [facility] [id number] [place] [address] Jun, [facility] [place] [facility] [id number] [place] [address] May, [facility] [place] [facility] [id number] [place] [address] May, [facility] [place] [facility] [id number] [place] [address] May, [facility] [place] [facility] [id number] [place] [address] May, [facility] [place] [facility] [id number] [place] [address] May, [facility] [place] [facility] [id number] [place] [address] May, [facility] [place] [facility] [id number] [place] [address] May, [facility] [place] [facility] [id number] [place] [address] May, [facility] [place] [facility] [id number] [place] [address] May, [facility] [place] [facility] [id number] [place] [address] Apr, [facility] [place] [facility] [id number] [place] [address] Apr, [facility] [place] [facility] [id number] [place] [address] Apr, [facility] [place] [facility] [id number] [place] [address] Apr, [facility] [place] [facility] [id number] [place] [address] Apr, [facility] [place] [facility] [id number] [place] [address] Apr, [facility] [place] [facility] [id number] [place] [address] Apr, [facility] [place] [facility] [address] [facility] [id number] [place] [address] Apr, 2013 [facility] [place] [facility] [id number] [place] [address] Apr, 2013 [facility] [place] [facility] [id number] [place] [address] Apr, [facility] [place] [facility] [id number] [place] [address] Apr, [facility] [place] [facility] [id number] [place] [address] Apr, [facility] [place] [facility] [id number] [place] [address] Mar, [facility] [place] [facility] [id number] [place] [address] Mar, 2013 [facility] [place] [facility] [id number] [place] [address] Mar, 2013 [facility] [place] [facility] [id number] [place] [address] Mar, 2013 [facility] [place] [facility] [id number] [place] [address] Mar, 2013 [facility] [place] [facility] [id number] [place] [address] Mar, 2013 [facility] [place] [facility] [id number] [place] [address] Mar, 2013 [facility] [place] [facility] [id number] [place] [address] Mar, 2013 [facility] [place] [facility] [id number] [place] [address] Mar, 2013 [facility] [place] [facility] [id number] [place] [address] Mar, 2013 [facility] [place] [facility] [id number] [place] [address] Feb, [facility] [place] [facility] [id number] [place] [address] Feb, [facility] [place] [facility] [address] [id number] [facility] [facility] [place] [address] Feb, [facility] [place] [facility] [address] [id number] [place] [address] Feb, [facility] [place] [facility] [address] [facility] [id number] [facility] [facility] [place] [address] Feb, [facility] [place] [facility] [address] [id number] [place] [address] Feb, [facility] [place] [facility] [address] [id number] [place] [address] Feb, [facility] [place] [facility] [address] [id number] [place] [address] Feb, [facility] [place] [facility] [address] [facility] [id number] [facility] [facility] [place] [address] Feb, [facility] [place] [facility] [address] [id number] [facility] [place] [address] Feb, [facility] [place] [facility] [address] [id number] [facility] [facility] [place] [address] Feb, [facility] [place] [facility] [address] [id number] [place] [address] Feb, [facility] [place] [facility] [address] [facility] [id number] [place] [address] Feb, [facility] [place] [facility] [address] [id number] [place] [address] Feb, [facility] [place] [facility] [address] [id number] [facility] [facility] [place] [address] Feb, [facility] [place] [facility] [address] [id number] [facility] [place] [address] Feb, [facility] [place] [facility] [address] [facility] [id number] [place] [address] Jan, [facility] [place] [facility] [address] [facility] [id number] [facility] [facility] [place] [address] Jan, [facility] [place] [facility] [address] [facility] [id number] [place] [address] 16 Jan, 2014 [facility] [place] [facility] [address] [id number] [place] [address] 16 Jan, 2014 [facility] [place] [facility] [address] [facility] [id number] [place] [address] Jan, [facility] [place] [facility] [id number] [place] [address] Jan, [facility] [place] [facility] [address] [facility] [id number] [place] [address] Dec, [facility] [place] [facility] [address] [id number] [place] [address] Dec, [facility] [place] [facility] [id number] [place] [address] Dec, [facility] [place] [facility] [id number] [place] [address] Dec, [facility] [place] [facility] [id number] [place] [address] Dec, [facility] [place] [facility] [address] [facility] [id number] [place] [address] Dec, [facility] [place] [facility] [id number] [place] [address] Dec, [facility] [place] [facility] [id number] [place] [address] Dec, [facility] [place] [facility] [id number] [place] [address] November, [facility] [place] [facility] [address] [facility] [id number] [place] [address] November, [facility] [place] [facility] [address] [id number] [place] [address] November, [facility] [place] [facility] [id number] [place] [address] November, [facility] [place] [facility] [id number] [place] [address] November, [facility] [place] [facility] [id number] [place] [address] November, [facility] [place] [facility] [id number] [place] [address] Oct, [facility] [place] [facility] [id number] [place] [address] Oct, [facility] [place] [facility] [id number] [place] [address] Oct, [facility] [place] [facility] [id number] [place] [address] Oct, [facility] [place] [facility] [id number] [place] [address] Sep, [facility] [place] [facility] [id number] [place] [address] Sep, [facility] [place] [facility] [id number] [place] [address] Sep, [facility] [place] [facility] [id number] [place] [address] Sep, [facility] [place] [facility] [id number] [place] [address] Sep, [facility] [place] [facility] [id number] [place] [address] Sep, [facility] [place] [facility] [id number] [place] [address] Aug, [facility] [place] [facility] [id number] [place] [address] Aug, [facility] [place] [facility] [id number] [place] [address] Aug, [facility] [place] [facility] [id number] [place] [address] Aug, [facility] [place] [facility] [id number] [place] [address] Aug, [facility] [place] [facility] [id number] [place] [address] Aug, [facility] [place] [facility] [address] [facility] [id number] [place] [address] Jul, [facility] [place] [facility] [id number] [place] [address] Jul, [facility] [place] [facility] [id number] [place] [address] Jul, [facility] [address] [facility] [id number] [place] [address] Jul, [facility] [address] [facility] [id number] [place] [address] Jul, [facility] [address] [facility] [id number] [place] [address] Jul, [facility] [address] [facility] [id number] [place] [address] Jul, [facility] [address] [facility] [id number] [place] [address] Jul, [facility] [address] [facility] [id number] [place] [address] Jul, [facility] [address] [facility] [id number] [place] [address] Jul, [facility] [address] [facility] [id number] [place] [address] Jul, [facility] [address] [facility] [id number] [place] [address] Jul, [facility] [address] [facility] [id number] [place] [address] Jul, [facility] [address] [facility] [id number] [place] [address] Jul, [facility] [address] [facility] [id number] [place] [address] Jul, [facility] [address] [id number] [place] [address] Jun, [facility] [address] [facility] [id number] [place] [address] 18 Jun, 2013 [facility] [address] [facility] [id number] [place] [address] Jun, [facility] [address] [facility] [id number] [place] [address] Jun, [facility] [address] [facility] [id number] [place] [address] May, [facility] [address] [facility] [id number] [place] [address] May, [facility] [address] [facility] [id number] May, [facility] [address] [facility] [id number] [place] [address] May, [facility] [address] [id number] [place] [address] May, [facility] [address] [facility] [id number] [place] [address] May, [facility] [address] [facility] [id number] [place] [address] May, [facility] [address] [facility] [id number] [place] [address] May, [facility] [address] [facility] [id number] [place] [address] May, [facility] [address] [facility] [id number] May, [facility] [address] [id number] [place] [address] May, [facility] [address] [facility] [id number] May, [facility] [address] [id number] [place] [address] May, [facility] [address] [facility] [id number] May, [facility] [id number] [place] [address] May, IMMUNIZATIONS No Known Immunizations SOCIAL HISTORY Never Assessed REASON FOR VISIT Oxycodone 10/13 PLAN OF CARE VITAL SIGNS MEDICATIONS Medication Instructions Dosage Frequency Start Date End Date Duration S tutu Oxycodone-Acetaminophen 5-325 MG Orally 2 times a day 1 tablet 12h 30 Sep, 2018 28 days Active RESULTS No Results [...] leukocytosis--[facility] 01/08/16 Hospitalization History pseudomemranous colitis, sepsis--[facility] 04/21/2016 Hospitalization History C Diff--[facility] 05/10/2016 Hospitalization History sepsis, pneumonia, diarrhea--[facility] Hospitalization History recurrent cdiff, pneumonia-[facility] Hospitalization History sepsis,pneumonia- [facility] 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
--- OUTSIDE RECORDS SUMMARY | 2019-11-07 10:19 | XMS REPORT ---
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 476474776 Problem COPD (chronic obstructive pulmonary disease) J44.9 Active 99823195 Problem Hypertension I10 Active 9509732 3 Problem Primary insomnia F51.01 Active 397 2004 Problem Hx of Clostridium difficile infection Z86.19 Active 489976319 Problem Chronic obstructive pulmon disease w acute lower resp infc t J44.0 Active 740558460 Problem History of arthroplasty of right knee Z96.651 Active 492858578 Problem Leg pain, left M79.605 Active 10593 7008 Problem Status post partial amputation of left foot Z89.43 2 Active 289960707 Problem Edema R60.9 Active 600984394 Problem Tobacco abuse, 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 Ac tive 857586174 Problem Anxiety F41.9 Active 44854290 Problem Chronic pain syndrome G89.4 Active 661658020 Problem Anemia, unspecified type D64.9 Activ e 020442742 Problem Depression, unspecified depression type F32.9 Active 77493765 Problem Other chronic pain G89.29 Active 8 4176738 Problem Iron deficiency anemia, unspecified iron deficiency an emia type D50.9 Active 01430216 Problem Insomnia, unspecified G47.00 Active 899839990 Problem Seasonal allergic rhinitis due to pollen J30.1 Active 91460835 Problem History of oral cancer Z85.819 Active 150028172 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 36 8724625 Problem Atrial fibrillation I48.91 Active 63499305 Problem Chronic obstructive pulmonary disease with (acute) exa cerbation J44.1 Active 206115216 Problem Rheumatoid arthritis M06.9 Active 50095005 Problem Dysthymia F34.1 Active 61148671 Problem Neuropathy G62.9 Active 573479648 Problem Rheumatoid arthritis with po sitive rheumatoid factor, involving unspecified site M05.9 Active 55934010 Problem Hemiplegia and hemiparesis f ollowing cerebral infarction affecting right dominant side I69.351 Active 668418823 Problem Cancer of neck C76.0 Active 20382 9000 ALLERGIES Substance Reaction Event Type Date Status Rocephin anaphylaxis Drug Allergy Sep, Active Levaquin C. Diff Drug Allergy Sep, Active ENCOUNTERS Encounter Location Date Diagnosis [place] [address] [address] November, [place] [address] [address] Sep, [place] [address] [address] Aug, Chronic pain syndrome G89.4 [place] [address] [place] [address] Aug, Chronic obstructive pulmonar y disease with (acute) exacerbation J44.1 [place] [address] [address] 12 Aug, 2019 Single subsegmental pulmonary embolism w [facility] acute cor pulmonale I26.93 ; Rheumatoid arthritis with positive rheumatoid factor, involving unspecified site M05.9 ; Chronic pain syndrome G89.4 ; Leg pain, left M79.605 and 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 [place] [address] [address] Aug, [place] [address] [address] Aug, 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 [place] [address] [place] [address] [place] [address] 07 Aug, 2019 Chronic pain syndrome G89.4 [facility] [address] [address] Jul, Primary insomnia F51.01 [facility] [address] [address] Jul, Chronic pain syndrome G89.4 [facility] [address] [address] Jul, [facility] [address] [address] Jul, [place] [address] [address] Jul, Rheumatoid arthritis with positive rheum atoid factor, involving unspecified site M05.9 and Chronic pain syndrome G89.4 [place] [address] [place] [address] [place] [address] Jul, [place] [address] [address] Jun, Rheumatoid arthritis with positive rheum atoid factor, involving unspecified site M05.9 [place] [address] [address] Jun, Chronic pain syndrome G89.4 ; Rheumatoid arthritis with positive rheumatoid factor, involving unspecified site M05.9 and Anxiety F41.9 [place] [address] [place] [address] [place] [address] Jun, [place] [address] [address] Jun, Hemorrhoids, unspecified hemorrhoid type K64.9 [place] [address] [address] Jun, Hemorrhoids, unspecified hemorrhoid type K64.9 ; Cancer of neck C76.0 and Drug-induced constipation K59.03 [place] [address] [place] [address] [place] [address] Jun, [facility] [address] [place] [address] [place] [address] Jun, [facility] [address] [address] Jun, Rheumatoid arthritis with positive rheum atoid factor, involving unspecified site M05.9 [facility] [address] [address] May, [facility] [address] [address] May, Rheumatoid arthritis with positive rheum atoid factor, involving unspecified site M05.9 [place] [address] [address] Apr, Primary insomnia F51.01 [place] [address] [address] Apr, Rheumatoid arthritis with positive rheum atoid factor, involving unspecified site M05.9 [facility] [address] [place] [address] [place] [address] Mar, [facility] [address] [address] Mar, [facility] [address] [address] Mar, Rheumatoid arthritis with positive rheum atoid factor, involving unspecified site M05.9 ; Atrial fibrillation I48.91 ; Chronic pain syndrome G89.4 ; Iron deficiency anemia, unspecified iron deficiency anemia type D50.9 and Hemiplegia and hemiparesis following cerebral infarction affecting right dominant side I69.351 [facility] [address] [address] Mar, Chronic pain syndrome G89.4 and Primary insomnia F51.01 [facility] [address] [address] Mar, Rheumatoid arthritis with positive rheum atoid factor, involving unspecified site M05.9 [facility] [address] [place] [address] [place] [address] Feb, Rheumatoid arthritis with positive rheum atoid factor, involving unspecified site M05.9 ; Chronic pain syndrome G89.4 ; Atrial fibrillation I48.91 ; Iron deficiency anemia, unspecified iron deficiency anemia type D50.9 ; Hemiplegia and hemiparesis following cerebral infarction affecting right dominant side I69.351 and Primary insomnia F51.01 [facility] [address] [address] Feb, Chronic pain syndrome G89.4 [facility] [address] [address] Jan, Chronic pain syndrome G89.4 [facility] [address] [place] [address] [place] [address] Jan, [facility] [address] [address] Jan, [facility] [address] [address] Dec, [facility] [address] [address] Dec, Chronic pain syndrome G89.4 [facility] [address] [place] [address] [place] [address] Dec, [facility] [address] [address] November, Chronic pain syndrome G89.4 [facility] [address] [place] [address] [place] [address] Oct, Chronic pain syndrome G89.4 [facility] [address] [place] [address] [place] [address] Oct, [facility] [address] [address] Sep, Chronic pain syndrome G89.4 [facility] [address] [place] [address] [place] [address] Sep, Leg pain, left M79.605 ; Right leg pain M79.604 and Reactive cervical nodes R59.0 [place] [address] [address] 14 Sep, 2018 [place] [address] [address] Sep, Neuropathy G62.9 [facility] [address] [place] [id number] [place] [id number] Sep, [place] [address] [address] Sep, Lymphadenopathy of left cervical region R59.0 [place] [address] [address] Sep, Lymphadenopathy of left cervical region R59.0 and Neuropathy G62.9 [place] [address] [address] Aug, Chronic pain syndrome G89.4 [place] [address] [address] Aug, [place] [address] [address] Aug, Peripheral vascular disease, unspecified I73.9 ; Other chronic pain G89.29 ; Chronic obstructive pulmon disease w acute lower resp infct J44.0 and Primary insomnia F51.01 [place] [address] [address] Aug, Chronic pain syndrome G89.4 [place] [address] [address] Jul, Chronic pain syndrome G89.4 [place] [address] [address] Jun, Chronic pain syndrome G89.4 [place] [address] [address] May, Chronic pain syndrome G89.4 [facility] [address] [facility] [id number] [place] [address] Apr, Cough R05 and Viral illness B34.9 [facility] [address] [address] Apr, Encounter for immunization Z23 [facility] [address] [address] Apr, Chronic pain syndrome G89.4 [facility] [address] [facility] [id number] [place] [address] Apr, Left acute otitis media H66. 92 [place] [address] [address] Mar, Rheumatoid arthritis M06.9 ; Other chron ic pain G89.29 ; History of oral cancer Z85.819 and History of tachycardia Z87.898 [place] [address] [address] Mar, Chronic pain syndrome G89.4 [place] [address] [address] Feb, Chronic pain syndrome G89.4 [place] [address] [address] Feb, Chronic pain syndrome G89.4 [place] [address] [address] Jan, Chronic pain syndrome G89.4 [place] [address] [address] Jan, [place] [address] [address] Dec, Chronic pain syndrome G89.4 [place] [address] [address] November, Chronic pain syndrome G89.4 [place] [address] [address] November, [facility] [address] [address] Oct, Chronic pain syndrome G89.4 [facility] [address] [address] Oct, [facility] [address] [address] Oct, Chronic pain syndrome G89.4 [facility] [address] [address] Oct, [facility] [address] [address] Oct, [facility] [address] [address] Sep, Left upper quadrant pain R10.12 ; Chroni c pain syndrome G89.4 ; Left lower quadrant pain R10.32 ; Other chronic pain G89.29 ; Sacrococcygeal disorders, not elsewhere classified M53.3 and Seasonal allergic rhinitis due to pollen J30.1 [facility] [address] [address] Sep, Chronic pain syndrome G89.4 [facility] [address] [address] Sep, [facility] [address] [address] Aug, Chronic pain syndrome G89.4 [facility] [address] [place] [address] [place] [address] Aug, [facility] [address] [address] Aug, Insomnia, unspecified G47.00 [facility] [address] [address] Jul, [facility] [address] [address] Jul, [place] [address] [address] Jul, Chronic pain syndrome G89.4 [place] [address] [address] Jun, Chronic pain syndrome G89.4 [place] [address] [address] Jun, Chronic pain syndrome G89.4 [place] [address] [address] May, [place] [address] [address] May, Shortness of breath R06.02 ; Peripheral vascular disease, unspecified I73.9 ; Pain in right knee M25.561 ; Other chronic pain G89.29 ; Chest wall pain R07.89 ; Chronic pain syndrome G89.4 ; Primary insomnia F51.01 and Ear pain, left H92.02 [place] [address] [address] May, Anxiety F41.9 [place] [address] [address] Apr, Pneumonia due to infectious organism, un specified laterality, unspecified part of lung J18.9 ; Hypoxia R09.02 ; Bradycardia R00.1 ; History of Clostridium difficile Z87.19 and Primary insomnia F51.01 [place] [address] [address] Apr, Anxiety F41.9 [place] [address] [address] Apr, [place] [address] [address] Mar, Anxiety F41.9 [place] [address] [address] Feb, [place] [address] [address] Feb, [facility] [address] [address] Feb, Abnormal finding on urinalysis R82.90 [facility] [address] [address] Feb, [facility] [address] [address] Feb, Shortness of breath R06.02 ; Tachycardia R00.0 ; Cough R05 ; Ill feeling R68.89 and Abnormal finding on urinalysis R82.90 [facility] [address] [address] Feb, Anxiety F41.9 [facility] [address] [facility] [id number] [place] [address] Feb, Sore throat J02.9 and Acute diffuse otitis externa of left ear H60.312 [facility] [address] [address] Jan, [facility] [address] [address] Jan, [place] [address] [id number] [id number] Jan, [facility] [address] [address] Jan, Depression, unspecified depression type F32.9 ; Chronic bronchitis, unspecified chronic bronchitis type J42 ; Chronic pain syndrome G89.4 and Anxiety F41.9 [facility] [address] [address] Jan, [facility] [address] [address] Jan, [facility] [address] [address] Jan, [facility] [address] [place] [id number] [id number] Jan, Chronic pain syndrome G89.4 [facility] [address] [place] [id number] Dec History of right knee surgery Z98.890 [place] [address] [address] Dec, [place] [address] [address] Dec, Chronic pain syndrome G89.4 [place] [address] [address] November, Anxiety F41.9 [facility] [address] [place] [address] November, Acute cystitis without hemat uria N30.00 [facility] [place] [address] [place] [id number] [place] [address] November, Fever, unspecified fever cau se R50.9 and Acute cystitis without hematuria N30.00 [place] [address] [address] November, Chronic pain syndrome G89.4 [place] [address] [address] Oct, Anxiety F41.9 [place] [address] [address] Oct, Chronic pain syndrome G89.4 [place] [address] [address] Oct, Chronic pain syndrome G89.4 [place] [address] [address] Oct, [place] [address] [address] Oct, Chronic pain syndrome G89.4 ; Pain in ri ght knee M25.561 ; History of Clostridium difficile Z87.19 ; Iron deficiency anemia, unspecified iron deficiency anemia type D50.9 ; Peripheral vascular disease, unspecified I73.9 and Atrial fibrillation I48.91 [facility] [address] [address] Oct, [place] [address] [address] Oct, Chronic pain syndrome G89.4 [facility] [address] [address] Sep, [facility] [address] [address] Sep, Depression, unspecified depression type F32.9 ; Chronic bronchitis, unspecified chronic bronchitis type J42 ; Chronic pain syndrome G89.4 and Anxiety F41.9 [facility] [address] [place] [id number] Sep History of Clostridium difficile infection Z86.19 and History of stroke Z86.73 [place] [id number] [address] Sep, Anxiety F41.9 [place] [address] [address] Sep, Chronic pain syndrome G89.4 [place] [address] [address] Sep, [place] [id number] [id number] Sep, [place] [address] [address] Aug, Anxiety F41.9 [place] [address] [address] Aug, Anxiety F41.9 [place] [address] [address] 16 Aug, 2016 [place] [address] [address] 14 Aug, 2016 Acute knee pain, unspecified laterality M25.569 [place] [address] [place] [id number] [place] [address] Aug, [facility] [address] [address] Aug, Chronic pain syndrome G89.4 [facility] [address] [place] [id number] [place] [address] Aug, [facility] [address] [address] Aug, [facility] [address] [address] Jul, [place] [address] [address] Jul, Anxiety F41.9 [place] [address] [address] Jul, Clostridium difficile diarrhea A04.7 [facility] [address] [place] [id number] Jul Clostridium difficile diarrhea A04.7 ; Chronic pain syndrome G89.4 ; Chronic obstructive pulmon disease w acute lower resp infct J44.0 and Pain in right knee M25.561 [facility] [address] [id number] [id number] Jul, [facility] [address] [facility] [id number] [place] [address] Jul, Anxiety F41.9 and Chronic pa in syndrome G89.4 [facility] [address] [place] [id number] [place] [address] Jun, Anxiety F41.9 [facility] [address] [address] Jun, Rheumatoid arthritis 714.0 [facility] [address] [address] Jun, Chronic pain syndrome G89.4 [facility] [address] [address] Jun, [facility] [address] [place] [id number] [place] [address] Jun, [facility] [address] [place] [address] [place] [address] Jun, History of pneumonia Z87.01 and History of Clostridium difficile Z87.19 [facility] [address] [place] [id number] [place] [address] Jun, [facility] [address] [place] [address] [place] [address] May, [facility] [address] [address] May, Anxiety F41.9 [place] [address] [place] [id number] [place] [address] May, Chronic pain syndrome G89.4 [place] [address] [place] [address] [place] [address] May, Chronic bronchitis, unspecified chronic bronchitis type J42 [place] [address] [place] [id number] [place] [address] May, [place] [address] [place] [address] [place] [address] May, C. difficile diarrhea A04.7 ; Peripheral edema R60.9 ; COPD (chronic obstructive pulmonary disease) J44.9 ; Rheumatoid arthritis, involving unspecified site, unspecified rheumatoid factor presence M06.9 ; Pain in right knee M25.561 ; Pain in left knee M25.562 and Other chronic pain G89.29 [place] [address] [place] [id number] [place] [address] May, [place] [address] [place] [address] [place] [address] May, [facility] [address] [place] [id number] [place] [address] May, Anxiety F41.9 [facility] [address] [place] [address] [place] [address] Apr, [facility] [address] [place] [id number] [place] [address] Apr, Chronic pain syndrome G89.4 [facility] [address] [place] [address] [place] [address] Apr, Leg pain, left M79.605 [facility] [address] [address] Apr, [facility] [address] [address] Apr, [facility] [address] [address] Apr, [facility] [address] [place] [id number] [place] [address] 28 Mar, 2016 Chronic pain syndrome G89.4 [facility] [address] [address] 22 Mar, 2016 Acute frontal sinusitis, recurrence not specified J01.10 [facility] [address] [place] [id number] [place] [address] 20 Mar, 2016 Iron deficiency anemia, unspecified iron deficiency anemia type D50.9 ; Rheumatoid arthritis with positive rheumatoid factor, involving unspecified site M05.9 and Depression, unspecified depression type F32.9 [place] [address] [place] [id number] [place] [address] 13 Mar, 2016 Iron deficiency anemia, unspecified iron deficiency anemia type D50.9 ; Depression, unspecified depression type F32.9 and Rheumatoid arthritis with positive rheumatoid factor, involving unspecified site M05.9 [facility] [address] [place] [id number] [place] [address] Mar, [facility] [address] [address] Mar, [facility] [address] [place] [id number] [place] [address] Feb, Chronic pain syndrome G89.4 [place] [address] [address] Feb, Status post partial amputation of left f oot Z89.432 ; Status post CVA Z86.73 ; Hemiplegia G81.90 and Anemia, unspecified type D64.9 [place] [address] [address] Feb, [place] [address] [address] Feb, Anemia, unspecified type D64.9 [place] [address] [address] Feb, [place] [address] [address] Feb, Iron deficiency anemia, unspecified iron deficiency anemia type D50.9 [place] [address] [address] Feb, [place] [address] [address] Feb, Chronic bronchitis, unspecified chronic bronchitis type J42 [place] [address] [address] Feb, Iron deficiency anemia, unspecified iron deficiency anemia type D50.9 [place] [address] [address] Feb, Chronic pain syndrome G89.4 [place] [address] [address] Feb, Anemia, unspecified type D64.9 and Hypox ia R09.02 [place] [address] [address] Feb, Anemia, unspecified type D64.9 [place] [address] [address] Jan, [place] [address] [address] Jan, Anemia, unspecified type D64.9 [facility] [address] [address] Jan, [facility] [address] [address] Jan, Anemia, unspecified type D64.9 [facility] [address] [address] Jan, Anemia, unspecified type D64.9 [facility] [address] [address] Jan, [facility] [address] [address] Jan, Anemia, unspecified type D64.9 [facility] [address] [address] Jan, [facility] [address] [address] Jan, [facility] [address] [address] Jan, Chronic pain syndrome G89.4 [place] [address] [address] Jan, Anemia, unspecified type D64.9 [place] [address] [address] Jan, Dysthymia F34.1 ; Cervicalgia M54.2 ; Fa tigue, unspecified type R53.83 and Depression, unspecified depression type F32.9 [facility] [address] [address] Dec, [place] [address] [address] Dec, Anxiety F41.9 [facility] [address] [address] Dec, Chronic pain syndrome G89.4 [place] [address] [address] November, [facility] [address] [address] November, Edema R60.9 and Dizziness R42 [facility] [address] [address] November, [facility] [address] [address] November, [facility] [address] [address] November, COPD (chronic obstructive pulmonary dise ase) J44.9 ; Increased tracheal secretions J39.8 and Edema R60.9 [facility] [address] [place] [id number] [place] [address] Oct, [facility] [address] [address] Oct, Shortness of breath R06.02 a nd Edema R60.9 [facility] [address] [address] Oct, Chronic bronchitis, unspecified chronic bronchitis type J42 ; Peripheral vascular disease, unspecified I73.9 ; Rheumatoid arthritis M06.9 and Atrial fibrillation I48.91 [facility] [address] [address] Oct, [facility] [address] [address] Oct, [facility] [address] [address] Oct, [facility] [address] [address] Oct, [facility] [id number] [place] [address] Oct, COPD exacerbation J44.1 [facility] [address] [place] [address] Sep, [facility] [id number] [place] [address] Sep, [facility] [id number] [place] [address] Sep, [facility] [id number] [place] [address] Aug, [facility] [id number] [place] [address] Aug, 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 and PVD (peripher al vascular disease) I73.9 [facility] [address] [address] Aug, Bronchitis J40 ; COPD (chronic obstructi ve pulmonary disease) J44.9 and Dysthymia F34.1 [facility] [id number] [place] [address] Aug, [facility] [id number] [place] [address] Jul, [facility] [address] [address] Jul, [facility] [id number] [place] [address] Jul, [facility] [address] [address] Jun, [facility] [id number] [place] [address] Jun, [facility] [id number] [place] [address] Jun, Peripheral vascular disease I73.9 [facility] [id number] [place] [address] Jun, [facility] [id number] [place] [address] Jun, [facility] [id number] [place] [address] Jun, Leg pain, left M79.605 ; Dysphagia, unsp ecified dysphagia R13.10 ; Insomnia, unspecified type G47.00 ; PVD (peripheral vascular disease) I73.9 and Status post partial amputation of left foot Z89.432 [facility] [id number] [place] [address] May, [facility] [address] [address] May, [facility] [address] [address] May, [facility] [address] [address] May, [facility] [address] [address] May, [facility] [address] [address] Apr, [facility] [address] [address] Apr, [facility] [address] [address] Mar, [facility] [address] [address] Mar, [facility] [address] [address] Feb, [facility] [address] [address] Feb, Nicotine abuse 305.1 ; Arthralgia 719.40 and 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 [facility] [id number] [place] [address] Feb, [facility] [address] [address] Jan, [facility] [id number] [place] [address] Jan, 2014 [facility] [id number] [place] [address] Jan, [facility] [id number] [place] [address] Jan, [facility] [id number] [place] [address] Jan, 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 ; Rheumatoid arth ritis 714.0 ; Hypertension 401.9 ; GERD (gastroesophageal reflux disease) 530.81 ; Nicotine addiction 305.1 and Leukocytosis 288.60 [facility] [id number] [place] [address] Jan, [facility] [id number] [place] [address] Jan, 2014 [facility] [id number] [place] [address] Jan, [facility] [id number] [place] [address] Jan, [facility] [address] [address] Jan, [facility] [id number] [place] [address] Dec, [facility] [id number] [place] [address] Dec, [facility] [id number] [place] [address] Dec, [facility] [id number] [place] [address] Dec, [facility] [id number] [place] [address] November, [facility] [address] [address] November, [facility] [address] [address] November, Shortness of breath 786.05 [facility] [address] [address] November, Rheumatoid arthritis 714.0 [facility] [id number] [place] [address] November, 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 [facility] [address] [address] November, Neuropathy 355.9 ; Insomnia 780.52 ; Dys thymia 300.4 ; Shortness of breath 786.05 ; Rheumatoid arthritis 714.0 and Nausea 787.02 [facility] [address] [address] November, [facility] [address] [address] November, [facility] [address] [address] Oct, [facility] [address] [address] Oct, [facility] [address] [address] Oct, [facility] [address] [address] Oct, [facility] [address] [address] Sep, [facility] [id number] [place] [address] Sep, [facility] [address] [address] Sep, [facility] [address] [address] Sep, [facility] [address] [address] Sep, [facility] [address] [id number] [place] [address] Sep, [facility] [place] [facility] [address] [id number] [place] [address] Sep, [facility] [place] [facility] [address] [id number] [place] [address] Sep, [facility] [place] [facility] [address] [id number] [place] [address] Aug, [facility] [place] [facility] [address] [id number] [place] [address] Aug, [facility] [place] [facility] [address] [id number] [place] [address] Aug, [facility] [place] [facility] [address] [id number] [place] [address] Aug, [facility] [place] [facility] [address] [id number] [place] [address] Aug, [facility] [place] [facility] [address] [id number] [place] [address] Aug, [facility] [place] [facility] [address] [id number] [place] [address] Jul, [facility] [place] [facility] [address] [id number] [place] [address] Jul, [facility] [place] [facility] [address] [id number] [place] [address] Jul, [facility] [place] [facility] [address] [id number] [place] [address] Jul, [facility] [place] [facility] [address] [id number] [place] [address] Jul, [facility] [place] [facility] [address] [id number] [place] [address] Jul, [facility] [place] [facility] [address] [id number] [place] [address] Jul, [facility] [place] [facility] [address] [id number] [place] [address] Jul, [facility] [place] [facility] [address] [id number] [place] [address] Jul, [facility] [place] [facility] [address] [id number] [place] [address] Jul, [facility] [place] [facility] [address] [id number] [place] [address] Jun, [facility] [place] [facility] [address] [id number] [place] [address] Jun, [facility] [place] [facility] [address] [facility] [id number] [place] [address] Jun, [facility] [place] [facility] [address] [id number] [place] [address] Jun, [facility] [place] [facility] [address] [id number] [place] [address] Jun, [facility] [place] [facility] [address] [id number] [place] [address] Jun, [facility] [place] [facility] [address] [id number] [place] [address] Jun, [facility] [place] [facility] [address] [id number] [place] [address] Jun, [facility] [place] [facility] [address] [id number] [place] [address] Jun, [facility] [place] [facility] [address] [id number] [place] [address] Jun, [facility] [place] [facility] [address] [id number] [place] [address] Jun, [facility] [place] [facility] [address] [id number] [place] [address] Jun, [facility] [place] [facility] [address] [id number] [place] [address] Jun, [facility] [place] [facility] [address] [id number] [place] [address] Jun, [facility] [place] [facility] [address] [id number] [place] [address] Jun, [facility] [place] [facility] [address] [id number] [place] [address] Jun, [facility] [place] [facility] [address] [id number] [place] [address] May, [facility] [place] [facility] [address] [id number] [place] [address] May, [facility] [place] [facility] [address] [id number] [place] [address] May, [facility] [place] [facility] [address] [id number] [place] [address] May, [facility] [place] [facility] [address] [id number] [place] [address] May, [facility] [place] [facility] [address] [id number] [place] [address] May, [facility] [place] [facility] [address] [id number] [place] [address] May, [facility] [place] [facility] [address] [id number] [place] [address] May, [facility] [place] [facility] [address] [id number] [place] [address] May, [facility] [place] [facility] [address] [id number] [place] [address] Apr, [facility] [place] [facility] [address] [id number] [place] [address] Apr, [facility] [place] [facility] [address] [id number] [place] [address] Apr, [facility] [place] [facility] [id number] [place] [address] Apr, [facility] [place] [facility] [address] [id number] [place] [address] Apr, [facility] [place] [facility] [address] [id number] [place] [address] Apr, [facility] [place] [facility] [address] [facility] [id number] [place] [address] Apr, 2013 [facility] [place] [facility] [address] [id number] [place] [address] Apr, 2013 [facility] [place] [facility] [address] [id number] [place] [address] Apr, 2013 [facility] [place] [facility] [address] [id number] [place] [address] Apr, 2013 [facility] [place] [facility] [address] [facility] [id number] [place] [address] Apr, 2013 [facility] [place] [facility] [address] [id number] [place] [address] Apr, [facility] [place] [facility] [address] [id number] [place] [address] 22 Mar, 2013 [facility] [place] [facility] [address] [id number] [place] [address] 22 Mar, 2013 [facility] [place] [facility] [address] [id number] [place] [address] 19 Sep, 2013 [facility] [place] [facility] [address] [id number] [place] [address] 19 Sep, 2013 [facility] [place] [facility] [address] [id number] [place] [address] 11 Sep, 2013 [facility] [place] [facility] [address] [id number] [place] [address] 11 Sep, 2013 [facility] [place] [facility] [address] [id number] [place] [address] 11 Sep, 2013 [facility] [place] [facility] [address] [id number] [place] [address] 11 Sep, 2013 [facility] [place] [facility] [address] [id number] [place] [address] 09 Sep, 2013 [facility] [place] [facility] [address] [id number] [place] [address] 09 Sep, 2013 [facility] [place] [facility] [address] [id number] [place] [address] Feb, [facility] [place] [facility] [address] [id number] [facility] [address] Feb, [facility] [place] [facility] [address] [facility] [id number] [facility] [place] [address] Feb, [facility] [place] [facility] [address] [facility] [id number] [facility] [place] [address] Feb, [facility] [place] [facility] [address] [id number] [facility] [place] [address] Feb, [facility] [place] [facility] [address] [facility] [id number] [facility] [place] [address] Feb, [facility] [place] [facility] [address] [id number] [facility] [place] [address] Feb, [facility] [place] [facility] [address] [id number] [facility] [place] [address] Feb, [facility] [place] [facility] [address] [id number] [facility] [place] [address] Feb, [facility] [place] [facility] [address] [facility] [id number] [facility] [place] [address] Feb, [facility] [place] [facility] [address] [id number] [facility] [place] [address] Feb, [facility] [place] [facility] [address] [facility] [id number] [place] [address] Feb, [facility] [place] [facility] [address] [id number] [place] [address] Feb, [facility] [place] [facility] [address] [facility] [id number] [place] [address] Feb, [facility] [place] [facility] [address] [id number] [place] [address] Feb, [facility] [place] [facility] [address] [facility] [id number] [place] [address] Feb, [facility] [place] [facility] [address] [facility] [id number] [facility] [place] [address] Jan, [facility] [place] [facility] [address] [id number] [place] [address] Jan, [facility] [place] [facility] [address] [id number] [place] [address] Jan, [facility] [place] [facility] [address] [facility] [id number] [place] [address] Jan, [facility] [place] [facility] [address] [id number] [place] [address] Jan, [facility] [place] [facility] [address] [facility] [id number] [place] [address] Jan, [facility] [place] [facility] [address] [id number] [place] [address] Dec, [facility] [place] [facility] [address] [id number] [place] [address] Dec, [facility] [place] [facility] [address] [id number] [place] [address] Dec, [facility] [place] [facility] [address] [id number] [place] [address] Dec, [facility] [place] [facility] [address] [facility] [id number] [place] [address] Dec, [facility] [place] [facility] [address] [id number] [place] [address] Dec, [facility] [place] [facility] [address] [id number] [place] [address] Dec, [facility] [place] [facility] [address] [id number] [place] [address] Dec, [facility] [place] [facility] [address] [id number] [place] [address] November, [facility] [place] [facility] [address] [id number] [place] [address] November, [facility] [place] [facility] [address] [id number] [place] [address] November, [facility] [place] [facility] [address] [id number] [place] [address] November, [facility] [place] [facility] [address] [id number] [place] [address] November, [facility] [place] [facility] [address] [id number] [place] [address] November, [facility] [place] [facility] [address] [id number] [place] [address] Oct, [facility] [place] [facility] [address] [id number] [place] [address] Oct, [facility] [place] [facility] [address] [id number] [place] [address] Oct, [facility] [place] [facility] [address] [id number] [place] [address] Oct, [facility] [place] [facility] [address] [id number] [place] [address] Sep, [facility] [place] [facility] [address] [id number] [place] [address] Sep, [facility] [place] [facility] [address] [id number] [place] [address] Sep, [facility] [place] [facility] [address] [id number] [place] [address] Sep, [facility] [place] [facility] [address] [id number] [place] [address] Sep, [facility] [place] [facility] [address] [id number] [place] [address] Sep, [facility] [place] [facility] [address] [id number] [place] [address] Aug, [facility] [place] [facility] [address] [id number] [place] [address] Aug, [facility] [place] [facility] [address] [id number] [place] [address] Aug, [facility] [place] [facility] [address] [id number] [place] [address] Aug, [facility] [place] [facility] [address] [id number] [place] [address] Aug, [facility] [place] [facility] [address] [facility] [id number] [place] [address] Aug, [facility] [place] [facility] [address] [facility] [id number] [place] [address] Jul, [facility] [place] [facility] [address] [id number] [place] [address] Jul, [facility] [place] [facility] [address] [id number] [place] [address] Jul, [facility] [place] [facility] [address] [facility] [id number] [place] [address] Jul, [facility] [place] [facility] [address] [id number] [place] [address] Jul, [facility] [place] [facility] [address] [id number] [place] [address] Jul, [facility] [place] [facility] [address] [id number] [place] [address] Jul, [facility] [place] [facility] [address] [id number] [place] [address] Jul, [facility] [place] [facility] [address] [id number] [place] [address] Jul, [facility] [id number] [place] [address] Jul, [facility] [id number] [place] [address] Jul, [facility] [address] [facility] [id number] [place] [address] Jul, [facility] [id number] [place] [address] Jul, [facility] [id number] [place] [address] Jul, [facility] [address] [id number] [place] [address] Jul, [facility] [address] [id number] [place] [address] 18 Jun, 2013 [facility] [address] [id number] [place] [address] Jun, [facility] [address] [id number] [place] [address] Jun, [facility] [address] [facility] [id number] [place] [address] Jun, [facility] [address] [facility] [address] [id number] [place] [address] May, [facility] [id number] [place] [address] May, [facility] [address] [facility] [id number] May, [facility] [id number] [place] [address] May, [facility] [address] [facility] [id number] [place] [address] May, [facility] [id number] [place] [address] May, [facility] [address] [facility] [id number] [place] [address] May, [facility] [address] [id number] [place] [address] May, [facility] [address] [facility] [id number] [place] [address] May, [facility] [address] [id number] [place] [id number] May, [facility] [address] [facility] [id number] [place] [address] May, [facility] [address] [id number] [place] [id number] May, [facility] [address] [facility] [id number] [place] [address] May, [facility] [address] [id number] [place] [id number] May, [facility] [id number] [place] [address] May, IMMUNIZATIONS No Known Immunizations SOCIAL HISTORY Never Assessed REASON FOR VISIT COPD / foot pain f/u Pt in for follow up on foot Pt states it is better She i s having Rt leg pain from hip all the way to foot KENNEDI Gomez PLAN OF CARE Activity Details Follow Up 4 Months Reason:pain mgmt VITAL SIGNS Height 63 in 2018-10-04 Temperature 98.7 degrees Fahrenheit 2018-10-04 Heart Rate 63 bpm 2018-10-04 Respiratory Rate 18 2018-10-04 Blood pressure systolic 126 mmHg 2018-10-04 Blood pressure diastolic 68 mmHg 2018-10-04 MEDICATIONS Medication Instructions Dosage Frequency Start Date End Date Duration S tatus Zoloft 50 mg Orally Once a day 1 tablet 24h 90 Active Enbrel 50 MG/ML Subcutaneous once weekly on Thursday 1 ml Active Albuterol Sulfate (2.5 MG/3ML) 0.083% US E ONE AMPULE IN NEBULIZER EVERY 6 HOURS 30 Active Gabapentin 300 MG Orally 2 times a day 1 capsule 12h 30 Active Symbicort 160-4.5 MCG/ACT Inhalation Twice a day 2 puffs 12h 90 Active Montelukast Sodium 10 mg Orally Once a day at HS 1 tablet in the eveni ng Active Pravastatin Sodium 10 mg Orally Once a day 1 tablet 24h 90 days Active Vitamin C 500 mg Orally Once a day 2 tablets 24h 05 Feb, 2016 Active Breo Ellipta 100-25 MCG/INH Inhalation Once a day 1 puff 24h 04 Aug Active Cholecalciferol 1000 UNIT Orally Once a day 1 capsule 24h Active Sulfamethoxazole-Trimethoprim 800-160 MG Orally Twice a day 1 table t 12h Sep, 10 day(s) Active Multi Adult Gummies - Ac tive Aspirin EC 81 MG Orally Once a day 1 tablet 24h 30 Active Probiotic - Active Oxycodone-Acetaminophen 5-325 MG Orally 2 times a day 1 tablet 12h 28 Aug, 2018 28 days Active Cetirizine HCl 10 MG Orally Once a day 1 tablet 24h Active Spiriva Respimat 2.5 MCG/ACT Inhalation Once a day 1 puff 24h 90 days Active Trazodone HCl 50 MG Orally Once a day 2 tablets at bedtime 24h 90 Active Ranitidine HCl 150 MG Orally 2 times a day 1 tablet 12h 30 Active RESULTS No Results PROCEDURES Procedure Date Ordered Result Body Site [facility] VISIT ESTABLISHED PATIENT October 04, 2018 INSTRUCTIONS MEDICATIONS ADMINISTERED No Known Medications [...]
--- OUTSIDE RECORDS SUMMARY | 2019-11-07 10:20 | XMS REPORT ---
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 688057045 Problem COPD (chronic obstructive pulmonary disease) J44.9 Active 71177421 Problem Hypertension I10 Active 3424800 3 Problem Primary insomnia F51.01 Active 397 2004 Problem Hx of Clostridium difficile infection Z86.19 Active 111866646 Problem Chronic obstructive pulmon disease w acute lower resp infc t J44.0 Active 606783552 Problem History of arthroplasty of right knee Z96.651 Active 330044381 Problem Leg pain, left M79.605 Active 35421 7008 Problem Status post partial amputation of left foot Z89.43 2 Active 983885192 Problem Edema R60.9 Active 906871758 Problem Tobacco abuse, 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 Ac tive 241338476 Problem Anxiety F41.9 Active 52293616 Problem Chronic pain syndrome G89.4 Active 326343170 Problem Anemia, unspecified type D64.9 Activ e 192450184 Problem Depression, unspecified depression type F32.9 Active 20664310 Problem Other chronic pain G89.29 Active 8 3486889 Problem Iron deficiency anemia, unspecified iron deficiency an emia type D50.9 Active 35795281 Problem Insomnia, unspecified G47.00 Active 787048043 Problem Seasonal allergic rhinitis due to pollen J30.1 Active 94854569 Problem History of oral cancer Z85.819 Active 486675206 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 36 0936804 Problem Atrial fibrillation I48.91 Active 57646395 Problem Chronic obstructive pulmonary disease with (acute) exa cerbation J44.1 Active 923235283 Problem Rheumatoid arthritis M06.9 Active 52792276 Problem Dysthymia F34.1 Active 56957786 Problem Neuropathy G62.9 Active 753463824 Problem Rheumatoid arthritis with po sitive rheumatoid factor, involving unspecified site M05.9 Active 81618459 Problem Hemiplegia and hemiparesis f ollowing cerebral infarction affecting right dominant side I69.351 Active 615081813 Problem Cancer of neck C76.0 Active 77067 9000 ALLERGIES No Information ENCOUNTERS Encounter Location Date Diagnosis [place] [address] [address] November, [place] [address] [address] Sep, [place] [address] [address] 28 Aug, 2019 Chronic pain syndrome G89.4 [place] [address] [place] [address] 19 Aug, 2019 Chronic obstructive pulmonar y disease with (acute) exacerbation J44.1 [place] [address] [address] 12 Aug, 2019 Single subsegmental pulmonary embolism w ithout acute cor pulmonale I26.93 ; Rheumatoid arthritis with positive rheumatoid factor, involving unspecified site M05.9 ; Chronic pain syndrome G89.4 ; Leg pain, left M79.605 and 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 [place] [address] [address] Aug, [place] [address] [address] 11 Aug, 2019 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 [place] [address] [address] 07 Aug, 2019 Chronic pain syndrome G89.4 [facility] [address] [place] [id number] [place] [address] Jul, Primary insomnia F51.01 [facility] [address] [place] [id number] [place] [address] Jul, Chronic pain syndrome G89.4 [facility] [address] [place] [id number] [place] [address] Jul, [facility] [address] [address] Jul, [facility] [address] [address] Jul, Rheumatoid arthritis with positive rheum atoid factor, involving unspecified site M05.9 and Chronic pain syndrome G89.4 [facility] [address] [place] [id number] [place] [address] Jul, [facility] [address] [address] Jun, Rheumatoid arthritis with positive rheum atoid factor, involving unspecified site M05.9 [place] [address] [address] Jun, Chronic pain syndrome G89.4 ; Rheumatoid arthritis with positive rheumatoid factor, involving unspecified site M05.9 and Anxiety F41.9 [facility] [address] [place] [id number] [place] [address] Jun, [facility] [address] [address] Jun, Hemorrhoids, unspecified hemorrhoid type K64.9 [facility] [address] [address] Jun, Hemorrhoids, unspecified hemorrhoid type K64.9 ; Cancer of neck C76.0 and Drug-induced constipation K59.03 [facility] [address] [place] [id number] [place] [address] Jun, [facility] [address] [place] [id number] [place] [address] Jun, [facility] [address] [address] Jun, Rheumatoid arthritis with positive rheum atoid factor, involving unspecified site M05.9 [facility] [address] [place] [id number] [place] [address] May, [facility] [address] [address] May, Rheumatoid arthritis with positive rheum atoid factor, involving unspecified site M05.9 [place] [address] [address] Apr, Primary insomnia F51.01 [place] [address] [address] Apr, Rheumatoid arthritis with positive rheum atoid factor, involving unspecified site M05.9 [place] [address] [address] Mar, [facility] [address] [address] Mar, [place] [address] [address] Mar, Rheumatoid arthritis with positive rheum atoid factor, involving unspecified site M05.9 ; Atrial fibrillation I48.91 ; Chronic pain syndrome G89.4 ; Iron deficiency anemia, unspecified iron deficiency anemia type D50.9 and Hemiplegia and hemiparesis following cerebral infarction affecting right dominant side I69.351 [place] [address] [address] Mar, Chronic pain syndrome G89.4 and Primary insomnia F51.01 [facility] [address] [address] Mar, Rheumatoid arthritis with positive rheum atoid factor, involving unspecified site M05.9 [place] [address] [address] Feb, Rheumatoid arthritis with positive rheum atoid factor, involving unspecified site M05.9 ; Chronic pain syndrome G89.4 ; Atrial fibrillation I48.91 ; Iron deficiency anemia, unspecified iron deficiency anemia type D50.9 ; Hemiplegia and hemiparesis following cerebral infarction affecting right dominant side I69.351 and Primary insomnia F51.01 [facility] [address] [address] Feb, Chronic pain syndrome G89.4 [facility] [address] [address] Jan, Chronic pain syndrome G89.4 [facility] [address] [address] Jan, [facility] [address] [address] Jan, [facility] [address] [address] Dec, [facility] [address] [address] Dec, Chronic pain syndrome G89.4 [facility] [address] [address] Dec, [facility] [address] [address] November, Chronic pain syndrome G89.4 [facility] [address] [address] Oct, Chronic pain syndrome G89.4 [facility] [address] [address] Oct, [facility] [address] [address] Sep, Chronic pain syndrome G89.4 [facility] [address] [address] Sep, Leg pain, left M79.605 ; Right leg pain M79.604 and Reactive cervical nodes R59.0 [facility] [address] [place] [id number] [place] [address] 14 Sep, 2018 [facility] [address] [address] Sep, Neuropathy G62.9 [facility] [address] [id number] [place] [id number] Sep, [facility] [address] [place] [id number] [place] [address] Sep, Lymphadenopathy of left cervical region R59.0 [facility] [address] [address] Sep, Lymphadenopathy of left cervical region R59.0 and Neuropathy G62.9 [facility] [address] [place] [id number] [place] [address] Aug, Chronic pain syndrome G89.4 [facility] [address] [place] [id number] [place] [address] Aug, [facility] [address] [address] 04 Aug, 2018 Peripheral vascular disease, unspecified I73.9 ; Other chronic pain G89.29 ; Chronic obstructive pulmon disease w acute lower resp infct J44.0 and Primary insomnia F51.01 [facility] [address] [address] Aug, Chronic pain syndrome G89.4 [facility] [address] [place] [id number] [place] [address] Jul, Chronic pain syndrome G89.4 [facility] [address] [address] Jun, Chronic pain syndrome G89.4 [facility] [address] [place] [id number] [place] [address] May, Chronic pain syndrome G89.4 [facility] [address] [facility] [id number] [address] [place] [address] Apr, Cough R05 and Viral illness B34.9 [facility] [address] [place] [id number] [place] [address] Apr, Encounter for immunization Z23 [facility] [address] [place] [id number] [place] [address] 16 Apr, 2018 Chronic pain syndrome G89.4 [facility] [address] [facility] [id number] [address] [place] [address] Apr, Left acute otitis media H66. 92 [facility] [address] [place] [id number] [place] [address] Mar, Rheumatoid arthritis M06.9 ; Other chron ic pain G89.29 ; History of oral cancer Z85.819 and History of tachycardia Z87.898 [place] [address] [address] Mar, Chronic pain syndrome G89.4 [facility] [address] [address] Feb, Chronic pain syndrome G89.4 [facility] [address] [address] Feb, Chronic pain syndrome G89.4 [facility] [address] [address] Jan, Chronic pain syndrome G89.4 [place] [address] [address] Jan, [facility] [address] [address] Dec, Chronic pain syndrome G89.4 [facility] [address] [address] November, Chronic pain syndrome G89.4 [facility] [address] [address] November, [facility] [address] [address] Oct, Chronic pain syndrome G89.4 [facility] [address] [address] Oct, [facility] [address] [address] Oct, Chronic pain syndrome G89.4 [facility] [address] [address] Oct, [facility] [address] [address] Oct, [facility] [address] [address] Sep, Left upper quadrant pain R10.12 ; Chroni c pain syndrome G89.4 ; Left lower quadrant pain R10.32 ; Other chronic pain G89.29 ; Sacrococcygeal disorders, not elsewhere classified M53.3 and Seasonal allergic rhinitis due to pollen J30.1 [facility] [address] [address] Sep, Chronic pain syndrome G89.4 [facility] [address] [address] Sep, [facility] [address] [address] Aug, Chronic pain syndrome G89.4 [facility] [address] [address] Aug, [facility] [address] [address] Aug, Insomnia, unspecified G47.00 [facility] [address] [address] Jul, [facility] [address] [address] Jul, [facility] [address] [address] Jul, Chronic pain syndrome G89.4 [place] [address] [address] Jun, Chronic pain syndrome G89.4 [facility] [address] [address] Jun, Chronic pain syndrome G89.4 [facility] [address] [address] May, [place] [address] [address] May, Shortness of breath R06.02 ; Peripheral vascular disease, unspecified I73.9 ; Pain in right knee M25.561 ; Other chronic pain G89.29 ; Chest wall pain R07.89 ; Chronic pain syndrome G89.4 ; Primary insomnia F51.01 and Ear pain, left H92.02 [place] [address] [address] May, Anxiety F41.9 [place] [address] [address] Apr, Pneumonia due to infectious organism, un specified laterality, unspecified part of lung J18.9 ; Hypoxia R09.02 ; Bradycardia R00.1 ; History of Clostridium difficile Z87.19 and Primary insomnia F51.01 [place] [address] [address] Apr, Anxiety F41.9 [place] [address] [address] Apr, [place] [address] [address] Mar, Anxiety F41.9 [place] [address] [address] Feb, [place] [address] [address] Feb, [place] [address] [address] Feb, Abnormal finding on urinalysis R82.90 [facility] [address] [address] Feb, [place] [address] [address] Feb, Shortness of breath R06.02 ; Tachycardia R00.0 ; Cough R05 ; Ill feeling R68.89 and Abnormal finding on urinalysis R82.90 [place] [address] [address] Feb, Anxiety F41.9 [facility] [address] [facility] [id number] [address] [address] Feb, Sore throat J02.9 and Acute diffuse otitis externa of left ear H60.312 [place] [address] [address] Jan, [place] [address] [address] Jan, [place] [address] [id number] [id number] Jan, [place] [address] [address] Jan, Depression, unspecified depression type F32.9 ; Chronic bronchitis, unspecified chronic bronchitis type J42 ; Chronic pain syndrome G89.4 and Anxiety F41.9 [facility] [address] [address] Jan, [place] [address] [address] Jan, [place] [address] [address] Jan, [place] [address] [place] [id number] [place] [id number] Jan, Chronic pain syndrome G89.4 [facility] [address] [place] [id number] Dec History of right knee surgery Z98.890 [place] [address] [address] Dec, [place] [address] [address] Dec, Chronic pain syndrome G89.4 [place] [address] [address] November, Anxiety F41.9 [facility] [address] [facility] [id number] [address] [place] [address] November, Acute cystitis without hemat uria N30.00 [facility] [place] [address] [place] [id number] [place] [address] November, Fever, unspecified fever cau se R50.9 and Acute cystitis without hematuria N30.00 [place] [address] [address] November, Chronic pain syndrome G89.4 [place] [address] [address] Oct, Anxiety F41.9 [place] [address] [address] Oct, Chronic pain syndrome G89.4 [place] [address] [address] Oct, Chronic pain syndrome G89.4 [place] [address] [address] Oct, [place] [address] [address] Oct, Chronic pain syndrome G89.4 ; Pain in ri ght knee M25.561 ; History of Clostridium difficile Z87.19 ; Iron deficiency anemia, unspecified iron deficiency anemia type D50.9 ; Peripheral vascular disease, unspecified I73.9 and Atrial fibrillation I48.91 [place] [address] [address] Oct, [facility] [address] [place] [id number] [place] [address] Oct, Chronic pain syndrome G89.4 [facility] [address] [place] [id number] [place] [address] Sep, [facility] [address] [place] [id number] [place] [address] Sep, Depression, unspecified depression type F32.9 ; Chronic bronchitis, unspecified chronic bronchitis type J42 ; Chronic pain syndrome G89.4 and Anxiety F41.9 [facility] [address] [place] [id number] Sep History of Clostridium difficile infection Z86.19 and History of stroke Z86.73 [facility] [address] [place] [id number] [place] [id number] Sep, Anxiety F41.9 [facility] [address] [address] Sep, Chronic pain syndrome G89.4 [facility] [address] [place] [id number] [place] [address] Sep, [facility] [address] [id number] [id number] Sep, [facility] [address] [address] Aug, Anxiety F41.9 [facility] [address] [address] Aug, Anxiety F41.9 [facility] [address] [address] 16 Aug, 2016 [facility] [address] [address] 14 Aug, 2016 Acute knee pain, unspecified laterality M25.569 [facility] [address] [address] 13 Aug, 2016 [facility] [address] [id number] [place] [address] Aug, Chronic pain syndrome G89.4 [facility] [address] [place] [id number] [place] [address] Aug, [facility] [address] [id number] [place] [address] Aug, [facility] [address] [place] [id number] [place] [address] Jul, [facility] [address] [address] Jul, Anxiety F41.9 [facility] [address] [place] [id number] [place] [address] Jul, Clostridium difficile diarrhea A04.7 [employer] [facility] [address] [place] [id number] Jul Clostridium difficile diarrhea A04.7 ; Chronic pain syndrome G89.4 ; Chronic obstructive pulmon disease w acute lower resp infct J44.0 and Pain in right knee M25.561 [facility] [address] [id number] [id number] Jul, [facility] [address] [facility] [id number] [address] [place] [address] Jul, Anxiety F41.9 and Chronic pa in syndrome G89.4 [facility] [address] [id number] [place] [address] Jun, Anxiety F41.9 [facility] [address] [id number] [place] [address] Jun, Rheumatoid arthritis 714.0 [facility] [address] [place] [id number] [place] [address] Jun, Chronic pain syndrome G89.4 [facility] [address] [place] [id number] [place] [address] Jun, [facility] [address] [address] Jun, [facility] [address] [place] [id number] [place] [address] Jun, History of pneumonia Z87.01 and History of Clostridium difficile Z87.19 [facility] [address] [place] [id number] [place] [address] Jun, [facility] [address] [place] [id number] [place] [address] May, [facility] [address] [address] May, Anxiety F41.9 [place] [address] [address] May, Chronic pain syndrome G89.4 [place] [address] [place] [id number] [place] [address] 15 May, 2016 Chronic bronchitis, unspecified chronic bronchitis type J42 [place] [address] [place] [id number] [place] [address] May, [place] [address] [place] [id number] [place] [address] May, C. difficile diarrhea A04.7 ; Peripheral edema R60.9 ; COPD (chronic obstructive pulmonary disease) J44.9 ; Rheumatoid arthritis, involving unspecified site, unspecified rheumatoid factor presence M06.9 ; Pain in right knee M25.561 ; Pain in left knee M25.562 and Other chronic pain G89.29 [place] [address] [place] [id number] [place] [address] May, [place] [address] [place] [id number] [place] [address] May, [place] [address] [place] [id number] [place] [address] May, Anxiety F41.9 [facility] [address] [place] [id number] [place] [address] Apr, [place] [address] [address] Apr, Chronic pain syndrome G89.4 [place] [address] [address] Apr, Leg pain, left M79.605 [facility] [address] [address] 14 Apr, 2016 [place] [address] [address] Apr, [place] [address] [address] Apr, [place] [address] [address] Mar, Chronic pain syndrome G89.4 [place] [address] [address] Mar, Acute frontal sinusitis, recurrence not specified J01.10 [place] [address] [address] 20 Mar, 2016 Iron deficiency anemia, unspecified iron deficiency anemia type D50.9 ; Rheumatoid arthritis with positive rheumatoid factor, involving unspecified site M05.9 and Depression, unspecified depression type F32.9 [place] [address] [address] Mar, Iron deficiency anemia, unspecified iron deficiency anemia type D50.9 ; Depression, unspecified depression type F32.9 and Rheumatoid arthritis with positive rheumatoid factor, involving unspecified site M05.9 [place] [address] [address] Mar, [place] [address] [address] Mar, [place] [address] [address] Feb, Chronic pain syndrome G89.4 [place] [address] [address] Feb, Status post partial amputation of left f oot Z89.432 ; Status post CVA Z86.73 ; Hemiplegia G81.90 and Anemia, unspecified type D64.9 [place] [address] [address] Feb, [place] [address] [address] Feb, Anemia, unspecified type D64.9 [place] [address] [address] Feb, [place] [address] [address] Feb, Iron deficiency anemia, unspecified iron deficiency anemia type D50.9 [place] [address] [address] Feb, [place] [address] [address] Feb, Chronic bronchitis, unspecified chronic bronchitis type J42 [place] [address] [address] Feb, Iron deficiency anemia, unspecified iron deficiency anemia type D50.9 [place] [address] [address] Feb, Chronic pain syndrome G89.4 [place] [address] [address] Feb, Anemia, unspecified type D64.9 and Hypox ia R09.02 [place] [address] [address] Feb, Anemia, unspecified type D64.9 [place] [address] [address] Jan, [place] [address] [address] Jan, Anemia, unspecified type D64.9 [place] [address] [address] Jan, [facility] [address] [address] Jan, Anemia, unspecified type D64.9 [facility] [address] [address] Jan, Anemia, unspecified type D64.9 [facility] [address] [address] Jan, [facility] [address] [address] Jan, Anemia, unspecified type D64.9 [facility] [address] [address] Jan, [facility] [address] [address] [address] Jan, [facility] [address] [address] Jan, Chronic pain syndrome G89.4 [facility] [address] [address] Jan, Anemia, unspecified type D64.9 [facility] [address] [address] Jan, Dysthymia F34.1 ; Cervicalgia M54.2 ; Fa tigue, unspecified type R53.83 and Depression, unspecified depression type F32.9 [facility] [address] [address] Dec, [facility] [address] [address] Dec, Anxiety F41.9 [facility] [address] [address] Dec, Chronic pain syndrome G89.4 [facility] [address] [address] November, [place] [id number] [place] [address] November, Edema R60.9 and Dizziness R42 [facility] [address] [address] November, [facility] [address] [address] November, [facility] [address] [address] November, COPD (chronic obstructive pulmonary dise ase) J44.9 ; Increased tracheal secretions J39.8 and Edema R60.9 [facility] [address] [place] [address] Oct, [facility] [address] [place] [address] Oct, Shortness of breath R06.02 a nd Edema R60.9 [place] [address] [address] Oct, Chronic bronchitis, unspecified chronic bronchitis type J42 ; Peripheral vascular disease, unspecified I73.9 ; Rheumatoid arthritis M06.9 and Atrial fibrillation I48.91 [facility] [id number] [place] [address] Oct, [facility] [address] [address] Oct, [facility] [address] [address] Oct, [facility] [address] [address] Oct, [facility] [address] [place] [address] Oct, COPD exacerbation J44.1 [facility] [address] [address] Sep, [facility] [address] [place] [address] Sep, [facility] [address] [address] Sep, [facility] [address] [address] Aug, [facility] [address] [address] Aug, 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 and PVD (peripher al vascular disease) I73.9 [facility] [address] [address] Aug, Bronchitis J40 ; COPD (chronic obstructi ve pulmonary disease) J44.9 and Dysthymia F34.1 [facility] [address] [address] Aug, [facility] [address] [address] Jul, [facility] [address] [address] Jul, [facility] [address] [address] Jul, [facility] [address] [address] Jun, [facility] [address] [address] Jun, [facility] [address] [address] Jun, Peripheral vascular disease I73.9 [facility] [address] [address] Jun, [facility] [address] [address] Jun, [facility] [address] [address] Jun, Leg pain, left M79.605 ; Dysphagia, unsp ecified dysphagia R13.10 ; Insomnia, unspecified type G47.00 ; PVD (peripheral vascular disease) I73.9 and Status post partial amputation of left foot Z89.432 [facility] [id number] [place] [address] May, [facility] [address] [address] May, [facility] [address] [address] May, [facility] [address] [address] May, [facility] [address] [address] May, [facility] [address] [address] Apr, [facility] [address] [address] Apr, [facility] [address] [address] Mar, [facility] [address] [address] Mar, [facility] [address] [address] Feb, [facility] [address] [address] Feb, Nicotine abuse 305.1 ; Arthralgia 719.40 and 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 [facility] [address] [address] Feb, [facility] [address] [address] Jan, [facility] [address] [address] Jan, [facility] [id number] [place] [address] Jan, [facility] [id number] [place] [address] Jan, [facility] [id number] [place] [address] Jan, 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 ; Rheumatoid arth ritis 714.0 ; Hypertension 401.9 ; GERD (gastroesophageal reflux disease) 530.81 ; Nicotine addiction 305.1 and Leukocytosis 288.60 [facility] [id number] [place] [address] Jan, [facility] [id number] [place] [address] Jan, [facility] [id number] [place] [address] Jan, [facility] [id number] [place] [address] Jan, [facility] [id number] [place] [address] Jan, [facility] [id number] [place] [address] Dec, [facility] [id number] [place] [address] Dec, [facility] [id number] [place] [address] Dec, [facility] [id number] [place] [address] Dec, [facility] [id number] [place] [address] November, [facility] [id number] [place] [address] November, [facility] [id number] [place] [address] November, Shortness of breath 786.05 [facility] [id number] [place] [address] November, Rheumatoid arthritis 714.0 [facility] [address] [address] November, 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 [facility] [id number] [place] [address] November, Neuropathy 355.9 ; Insomnia 780.52 ; Dys thymia 300.4 ; Shortness of breath 786.05 ; Rheumatoid arthritis 714.0 and Nausea 787.02 [facility] [id number] [place] [address] November, [facility] [address] [address] November, [facility] [id number] [place] [address] Oct, [facility] [address] [address] Oct, [facility] [id number] [place] [address] Oct, [facility] [address] [address] Oct, [facility] [address] [address] Sep, [facility] [id number] [place] [address] Sep, [facility] [id number] [place] [address] Sep, [facility] [address] [address] Sep, [facility] [id number] [place] [address] Sep, [facility] [address] [address] Sep, [facility] [place] [facility] [address] [id number] [place] [address] Sep, [facility] [place] [facility] [address] [id number] [place] [address] Sep, [facility] [place] [facility] [address] [id number] [place] [address] Aug, [facility] [place] [facility] [address] [id number] [place] [address] Aug, [facility] [place] [facility] [address] [id number] [place] [address] Aug, [facility] [place] [facility] [address] [id number] [place] [address] Aug, [facility] [place] [facility] [address] [id number] [place] [address] Aug, [facility] [place] [facility] [address] [id number] [place] [address] Aug, [facility] [place] [facility] [address] [id number] [place] [address] Jul, [facility] [place] [facility] [address] [id number] [place] [address] Jul, [facility] [place] [facility] [address] [id number] [place] [address] Jul, [facility] [place] [facility] [address] [id number] [place] [address] Jul, [facility] [place] [facility] [address] [id number] [place] [address] Jul, [facility] [place] [facility] [address] [id number] [place] [address] Jul, [facility] [place] [facility] [address] [id number] [place] [address] Jul, [facility] [place] [facility] [address] [id number] [place] [address] Jul, [facility] [place] [facility] [address] [id number] [place] [address] Jul, [facility] [place] [facility] [address] [id number] [place] [address] Jul, [facility] [place] [facility] [address] [facility] [id number] [place] [address] Jun, [facility] [place] [facility] [address] [id number] [place] [address] Jun, [facility] [place] [facility] [address] [id number] [place] [address] Jun, [facility] [place] [facility] [address] [facility] [id number] [place] [address] Jun, [facility] [place] [facility] [address] [id number] [place] [address] Jun, [facility] [place] [facility] [address] [id number] [place] [address] Jun, [facility] [place] [facility] [address] [id number] [place] [address] Jun, [facility] [place] [facility] [address] [id number] [place] [address] Jun, [facility] [place] [facility] [address] [id number] [place] [address] Jun, [facility] [place] [facility] [address] [id number] [place] [address] Jun, [facility] [place] [facility] [address] [id number] [place] [address] Jun, [facility] [place] [facility] [address] [id number] [place] [address] Jun, [facility] [place] [facility] [address] [id number] [place] [address] Jun, [facility] [place] [facility] [address] [id number] [place] [address] Jun, [facility] [place] [facility] [address] [id number] [place] [address] Jun, [facility] [place] [facility] [address] [id number] [place] [address] Jun, [facility] [place] [facility] [address] [id number] [place] [address] May, [facility] [place] [facility] [address] [id number] [place] [address] May, [facility] [place] [facility] [address] [id number] [place] [address] May, [facility] [place] [facility] [address] [id number] [place] [address] May, [facility] [place] [facility] [address] [id number] [place] [address] May, [facility] [place] [facility] [address] [id number] [place] [address] May, [facility] [place] [facility] [address] [id number] [place] [address] May, [facility] [place] [facility] [address] [id number] [place] [address] May, [facility] [place] [facility] [address] [id number] [place] [address] May, [facility] [place] [facility] [address] [id number] [place] [address] Apr, [facility] [place] [facility] [address] [id number] [place] [address] Apr, [facility] [place] [facility] [address] [id number] [place] [address] Apr, [facility] [place] [facility] [address] [id number] [place] [address] Apr, [facility] [place] [facility] [id number] [place] [address] Apr, [facility] [place] [facility] [address] [id number] [place] [address] Apr, [facility] [place] [facility] [address] [id number] [place] [address] Apr, [facility] [place] [facility] [address] [facility] [id number] [place] [address] Apr, 2013 [facility] [place] [facility] [address] [id number] [place] [address] Apr, 2013 [facility] [place] [facility] [address] [id number] [place] [address] Apr, [facility] [place] [facility] [address] [id number] [place] [address] Apr, [facility] [place] [facility] [address] [id number] [place] [address] Apr, [facility] [place] [facility] [address] [id number] [place] [address] Mar, [facility] [place] [facility] [address] [id number] [place] [address] Mar, 2013 [facility] [place] [facility] [address] [id number] [place] [address] Mar, 2013 [facility] [place] [facility] [address] [id number] [place] [address] Mar, 2013 [facility] [place] [facility] [address] [id number] [place] [address] Mar, 2013 [facility] [place] [facility] [address] [id number] [place] [address] Mar, 2013 [facility] [place] [facility] [address] [id number] [place] [address] Mar, 2013 [facility] [place] [facility] [address] [id number] [place] [address] Mar, 2013 [facility] [place] [facility] [address] [id number] [place] [address] Mar, 2013 [facility] [place] [facility] [address] [id number] [place] [address] Mar, 2013 [facility] [place] [facility] [address] [id number] [place] [address] Feb, [facility] [place] [facility] [address] [id number] [place] [address] Feb, [facility] [place] [facility] [address] [id number] [facility] [place] [address] Feb, [facility] [place] [facility] [address] [id number] [place] [address] Feb, [facility] [place] [facility] [address] [facility] [id number] [facility] [place] [address] Feb, [facility] [place] [facility] [address] [id number] [place] [address] Feb, [facility] [place] [facility] [address] [id number] [place] [address] Feb, [facility] [place] [facility] [address] [id number] [place] [address] Feb, [facility] [place] [facility] [address] [facility] [id number] [facility] [place] [address] Feb, [facility] [place] [facility] [address] [id number] [facility] [place] [address] Feb, [facility] [place] [facility] [address] [id number] [facility] [place] [address] Feb, [facility] [place] [facility] [address] [id number] [place] [address] Feb, [facility] [place] [facility] [address] [facility] [id number] [place] [address] Feb, [facility] [place] [facility] [address] [id number] [place] [address] Feb, [facility] [place] [facility] [address] [id number] [facility] [place] [address] Feb, [facility] [place] [facility] [address] [id number] [facility] [place] [address] Feb, [facility] [place] [facility] [address] [facility] [id number] [place] [address] Jan, [facility] [place] [facility] [address] [facility] [id number] [facility] [place] [address] Jan, [facility] [place] [facility] [address] [facility] [id number] [place] [address] 16 Jan, 2014 [facility] [place] [facility] [address] [id number] [place] [address] 16 Jan, 2014 [facility] [place] [facility] [address] [facility] [id number] [place] [address] Jan, [facility] [place] [facility] [address] [id number] [place] [address] Jan, [facility] [place] [facility] [address] [facility] [id number] [place] [address] Dec, [facility] [place] [facility] [address] [id number] [place] [address] Dec, [facility] [place] [facility] [address] [id number] [place] [address] Dec, [facility] [place] [facility] [address] [id number] [place] [address] Dec, [facility] [place] [facility] [address] [id number] [place] [address] Dec, [facility] [place] [facility] [address] [facility] [id number] [place] [address] Dec, [facility] [place] [facility] [address] [id number] [place] [address] Dec, [facility] [place] [facility] [address] [id number] [place] [address] Dec, [facility] [place] [facility] [address] [id number] [place] [address] November, [facility] [place] [facility] [address] [facility] [id number] [place] [address] November, [facility] [place] [facility] [address] [id number] [place] [address] November, [facility] [place] [facility] [address] [id number] [place] [address] November, [facility] [place] [facility] [address] [id number] [place] [address] November, [facility] [place] [facility] [address] [id number] [place] [address] November, [facility] [place] [facility] [address] [id number] [place] [address] Oct, [facility] [place] [facility] [address] [id number] [place] [address] Oct, [facility] [place] [facility] [address] [id number] [place] [address] Oct, [facility] [place] [facility] [address] [id number] [place] [address] Oct, [facility] [place] [facility] [address] [id number] [place] [address] Sep, [facility] [place] [facility] [address] [id number] [place] [address] Sep, [facility] [place] [facility] [address] [id number] [place] [address] Sep, [facility] [place] [facility] [address] [id number] [place] [address] Sep, [facility] [place] [facility] [address] [id number] [place] [address] Sep, [facility] [place] [facility] [address] [id number] [place] [address] Sep, [facility] [place] [facility] [address] [id number] [place] [address] Aug, [facility] [place] [facility] [address] [id number] [place] [address] Aug, [facility] [address] [id number] [place] [address] Aug, [facility] [address] [id number] [place] [id number] Aug, [facility] [address] [id number] [place] [address] Aug, [facility] [address] [id number] [place] [id number] Aug, [facility] [address] [facility] [id number] [place] [id number] Jul, [facility] [address] [id number] [place] [id number] Jul, [facility] [address] [id number] [place] [id number] Jul, [facility] [address] [id number] [place] [id number] Jul, [facility] [address] [id number] [place] [address] Jul, [facility] [address] [id number] [place] [id number] Jul, [facility] [address] [id number] [place] [address] Jul, [facility] [address] [id number] [place] [id number] Jul, [facility] [address] [id number] [place] [id number] Jul, [facility] [address] [id number] [place] [address] Jul, [facility] [address] [id number] [place] [address] Jul, [facility] [address] [id number] [place] [address] Jul, [facility] [address] [id number] [place] [address] Jul, [facility] [address] [id number] [place] [id number] Jul, [facility] [address] [id number] [place] [address] Jul, [facility] [address] [id number] [place] [address] Jun, [facility] [address] [id number] [place] [id number] 18 Jun, 2013 [facility] [address] [id number] [place] [id number] Jun, [facility] [address] [id number] [place] [address] Jun, [facility] [address] [id number] [place] [id number] May, [facility] [address] [id number] [place] [address] May, [facility] [address] [facility] [id number] May, [facility] [address] [id number] [place] [id number] May, [facility] [address] [id number] [place] [address] May, [facility] [address] [id number] [place] [address] May, [facility] [address] [id number] [place] [address] May, [facility] [address] [id number] [place] [address] May, [facility] [address] [id number] [place] [address] May, [facility] [address] [facility] [id number] May, [facility] [address] [id number] [place] [address] May, [facility] [address] [facility] [id number] May, [facility] [address] [id number] [place] [address] May, [facility] [address] [facility] [id number] May, [facility] [id number] [place] [address] May, IMMUNIZATIONS No Known Immunizations SOCIAL HISTORY [...] leukocytosis--[facility] 01/08/16 Hospitalization History pseudomemranous colitis, sepsis--[facility] 04/21/2016 Hospitalization History C Diff--[facility] 05/10/2016 Hospitalization History sepsis, pneumonia, diarrhea--[facility] Hospitalization History recurrent cdiff, pneumonia-[facility] Hospitalization History sepsis,pneumonia- [facility] 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
--- OUTSIDE RECORDS SUMMARY | 2019-11-07 10:20 | XMS REPORT ---
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 513809944 Problem COPD (chronic obstructive pulmonary disease) J44.9 Active 08227360 Problem Hypertension I10 Active 7607665 3 Problem Primary insomnia F51.01 Active 397 2004 Problem Hx of Clostridium difficile infection Z86.19 Active 403340450 Problem Chronic obstructive pulmon disease w acute lower resp infc t J44.0 Active 144107745 Problem History of arthroplasty of right knee Z96.651 Active 882999748 Problem Leg pain, left M79.605 Active 82448 7008 Problem Status post partial amputation of left foot Z89.43 2 Active 024442259 Problem Edema R60.9 Active 840282365 Problem Tobacco abuse, 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 Ac tive 367822587 Problem Anxiety F41.9 Active 22378220 Problem Chronic pain syndrome G89.4 Active 754405972 Problem Anemia, unspecified type D64.9 Activ e 420598792 Problem Depression, unspecified depression type F32.9 Active 33781084 Problem Other chronic pain G89.29 Active 8 5920268 Problem Iron deficiency anemia, unspecified iron deficiency an emia type D50.9 Active 34404092 Problem Insomnia, unspecified G47.00 Active 138142666 Problem Seasonal allergic rhinitis due to pollen J30.1 Active 48179201 Problem History of oral cancer Z85.819 Active 556721115 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 36 2001251 Problem Atrial fibrillation I48.91 Active 92457828 Problem Chronic obstructive pulmonary disease with (acute) exa cerbation J44.1 Active 876390935 Problem Rheumatoid arthritis M06.9 Active 78182707 Problem Dysthymia F34.1 Active 05133249 Problem Neuropathy G62.9 Active 037010410 Problem Rheumatoid arthritis with po sitive rheumatoid factor, involving unspecified site M05.9 Active 87304054 Problem Hemiplegia and hemiparesis f ollowing cerebral infarction affecting right dominant side I69.351 Active 147208469 Problem Cancer of neck C76.0 Active 15838 9000 ALLERGIES No Information ENCOUNTERS Encounter Location Date Diagnosis [place] [address] [address] November, [place] [address] [address] Aug, [place] [address] [place] [address] Aug, Chronic obstructive pulmonar y disease with (acute) exacerbation J44.1 [place] [address] [address] 12 Aug, 2019 [facility] I[facility].93 ; Rheumatoid arthritis with positive rheumatoid factor, involving unspecified site M05.9 ; Chronic pain syndrome G89.4 ; Leg pain, left M79.605 and 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 [place] [address] [address] Aug, [place] [address] [address] Aug, 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 [place] [address] [address] 07 Aug, 2019 Chronic pain syndrome G89.4 [place] [address] [address] Jul, Primary insomnia F51.01 [place] [address] [address] Jul, Chronic pain syndrome G89.4 [place] [address] [address] Jul, [place] [address] [address] Jul, [place] [address] [address] Jul, Rheumatoid arthritis with positive rheum atoid factor, involving unspecified site M05.9 and Chronic pain syndrome G89.4 [place] [address] [address] Jul, [place] [address] [address] Jun, Rheumatoid arthritis with positive rheum atoid factor, involving unspecified site M05.9 [place] [address] [address] Jun, Chronic pain syndrome G89.4 ; Rheumatoid arthritis with positive rheumatoid factor, involving unspecified site M05.9 and Anxiety F41.9 [place] [address] [address] Jun, [place] [address] [address] Jun, Hemorrhoids, unspecified hemorrhoid type K64.9 [place] [address] [address] Jun, Hemorrhoids, unspecified hemorrhoid type K64.9 ; Cancer of neck C76.0 and Drug-induced constipation K59.03 [place] [address] [address] Jun, [place] [address] [address] Jun, [place] [address] [address] Jun, Rheumatoid arthritis with positive rheum atoid factor, involving unspecified site M05.9 [place] [address] [place] [id number] [place] [address] May, [facility] [address] [place] [id number] [place] [address] May, Rheumatoid arthritis with positive rheum atoid factor, involving unspecified site M05.9 [place] [address] [address] Apr, Primary insomnia F51.01 [place] [address] [address] Apr, Rheumatoid arthritis with positive rheum atoid factor, involving unspecified site M05.9 [place] [address] [place] [id number] [place] [address] Mar, [place] [address] [address] Mar, [place] [address] [address] Mar, Rheumatoid arthritis with positive rheum atoid factor, involving unspecified site M05.9 ; Atrial fibrillation I48.91 ; Chronic pain syndrome G89.4 ; Iron deficiency anemia, unspecified iron deficiency anemia type D50.9 and Hemiplegia and hemiparesis following cerebral infarction affecting right dominant side I69.351 [place] [address] [address] Mar, Chronic pain syndrome G89.4 and Primary insomnia F51.01 [facility] [address] [address] Mar, Rheumatoid arthritis with positive rheum atoid factor, involving unspecified site M05.9 [facility] [address] [place] [id number] [place] [address] Feb, Rheumatoid arthritis with positive rheum atoid factor, involving unspecified site M05.9 ; Chronic pain syndrome G89.4 ; Atrial fibrillation I48.91 ; Iron deficiency anemia, unspecified iron deficiency anemia type D50.9 ; Hemiplegia and hemiparesis following cerebral infarction affecting right dominant side I69.351 and Primary insomnia F51.01 [facility] [address] [address] Feb, Chronic pain syndrome G89.4 [facility] [address] [address] Jan, Chronic pain syndrome G89.4 [facility] [address] [address] Jan, [facility] [address] [address] Jan, [facility] [address] [address] Dec, [facility] [address] [address] Dec, Chronic pain syndrome G89.4 [facility] [address] [address] Dec, [facility] [address] [address] November, Chronic pain syndrome G89.4 [facility] [address] [address] Oct, Chronic pain syndrome G89.4 [facility] [address] [address] Oct, [facility] [address] [address] Sep, Chronic pain syndrome G89.4 [facility] [address] [address] Sep, Leg pain, left M79.605 ; Right leg pain M79.604 and Reactive cervical nodes R59.0 [facility] [address] [address] Sep, [facility] [address] [place] [id number] [place] [address] Sep, Neuropathy G62.9 [facility] [address] [id number] [place] [place] [id number] Sep, [place] [address] [place] [address] [place] [address] Sep, Lymphadenopathy of left cervical region R59.0 [place] [address] [address] Sep, Lymphadenopathy of left cervical region R59.0 and Neuropathy G62.9 [place] [address] [address] Aug, Chronic pain syndrome G89.4 [place] [address] [address] Aug, [place] [address] [address] Aug, Peripheral vascular disease, unspecified I73.9 ; Other chronic pain G89.29 ; Chronic obstructive pulmon disease w acute lower resp infct J44.0 and Primary insomnia F51.01 [place] [address] [address] Aug, Chronic pain syndrome G89.4 [place] [address] [address] Jul, Chronic pain syndrome G89.4 [place] [address] [address] Jun, Chronic pain syndrome G89.4 [place] [address] [address] May, Chronic pain syndrome G89.4 [facility] [address] [facility] [id number] [address] [place] [address] Apr, Cough R05 and Viral illness B34.9 [place] [address] [address] Apr, Encounter for immunization Z23 [facility] [address] [place] [id number] [place] [address] Apr, Chronic pain syndrome G89.4 [facility] [address] [facility] [id number] [address] [place] [address] 07 Apr, 2018 Left acute otitis media H66. 92 [facility] [address] [address] Mar, Rheumatoid arthritis M06.9 ; Other chron ic pain G89.29 ; History of oral cancer Z85.819 and History of tachycardia Z87.898 [facility] [address] [address] Mar, Chronic pain syndrome G89.4 [facility] [address] [address] Feb, Chronic pain syndrome G89.4 [facility] [address] [address] Feb, Chronic pain syndrome G89.4 [facility] [address] [address] Jan, Chronic pain syndrome G89.4 [facility] [address] [address] Jan, [facility] [address] [address] Dec, Chronic pain syndrome G89.4 [facility] [address] [address] November, Chronic pain syndrome G89.4 [facility] [address] [address] November, [facility] [address] [address] Oct, Chronic pain syndrome G89.4 [facility] [address] [address] Oct, [facility] [address] [place] [id number] [place] [address] Oct, Chronic pain syndrome G89.4 [facility] [address] [address] Oct, [facility] [address] [address] Oct, [facility] [address] [address] Sep, Left upper quadrant pain R10.12 ; Chroni c pain syndrome G89.4 ; Left lower quadrant pain R10.32 ; Other chronic pain G89.29 ; Sacrococcygeal disorders, not elsewhere classified M53.3 and Seasonal allergic rhinitis due to pollen J30.1 [facility] [address] [address] Sep, Chronic pain syndrome G89.4 [facility] [address] [address] Sep, [facility] [address] [address] Aug, Chronic pain syndrome G89.4 [facility] [address] [address] Aug, [facility] [address] [address] Aug, Insomnia, unspecified G47.00 [facility] [address] [address] Jul, [facility] [address] [address] Jul, [facility] [address] [address] Jul, Chronic pain syndrome G89.4 [facility] [address] [address] Jun, Chronic pain syndrome G89.4 [place] [address] [address] Jun, Chronic pain syndrome G89.4 [facility] [address] [address] May, [facility] [address] [address] May, Shortness of breath R06.02 ; Peripheral vascular disease, unspecified I73.9 ; Pain in right knee M25.561 ; Other chronic pain G89.29 ; Chest wall pain R07.89 ; Chronic pain syndrome G89.4 ; Primary insomnia F51.01 and Ear pain, left H92.02 [place] [address] [address] May, Anxiety F41.9 [place] [address] [address] Apr, Pneumonia due to infectious organism, un specified laterality, unspecified part of lung J18.9 ; Hypoxia R09.02 ; Bradycardia R00.1 ; History of Clostridium difficile Z87.19 and Primary insomnia F51.01 [place] [address] [address] Apr, Anxiety F41.9 [place] [address] [address] Apr, [place] [address] [address] Mar, Anxiety F41.9 [place] [address] [address] Feb, [place] [address] [address] Feb, [place] [address] [address] Feb, Abnormal finding on urinalysis R82.90 [place] [address] [address] Feb, [facility] [address] [address] Feb, Shortness of breath R06.02 ; Tachycardia R00.0 ; Cough R05 ; Ill feeling R68.89 and Abnormal finding on urinalysis R82.90 [facility] [address] [address] Feb, Anxiety F41.9 [facility] [address] [facility] [id number] [address] [place] [address] Feb, Sore throat J02.9 and Acute diffuse otitis externa of left ear H60.312 [place] [address] [address] Jan, [facility] [address] [address] Jan, [facility] [id number] [id number] Jan, [facility] [address] [address] Jan, Depression, unspecified depression type F32.9 ; Chronic bronchitis, unspecified chronic bronchitis type J42 ; Chronic pain syndrome G89.4 and Anxiety F41.9 [facility] [address] [address] Jan, [place] [address] [address] Jan, [place] [address] [address] Jan, [place] [id number] [id number] Jan, Chronic pain syndrome G89.4 [employer] [facility] [address] [place] [id number] Dec History of right knee surgery Z98.890 [place] [address] [address] Dec, [place] [address] [place] [id number] [place] [address] Dec, Chronic pain syndrome G89.4 [place] [address] [place] [id number] [place] [address] November, Anxiety F41.9 [facility] [address] [facility] [id number] [address] [address] November, Acute cystitis without hemat uria N30.00 [facility] [address] [place] [id number] [address] November, Fever, unspecified fever cau se R50.9 and Acute cystitis without hematuria N30.00 [place] [address] [address] November, Chronic pain syndrome G89.4 [place] [address] [address] Oct, Anxiety F41.9 [place] [address] [address] Oct, Chronic pain syndrome G89.4 [place] [address] [address] Oct, Chronic pain syndrome G89.4 [place] [address] [address] Oct, [place] [address] [address] Oct, Chronic pain syndrome G89.4 ; Pain in ri ght knee M25.561 ; History of Clostridium difficile Z87.19 ; Iron deficiency anemia, unspecified iron deficiency anemia type D50.9 ; Peripheral vascular disease, unspecified I73.9 and Atrial fibrillation I48.91 [place] [address] [place] [id number] [place] [address] Oct, [place] [address] [address] Oct, Chronic pain syndrome G89.4 [facility] [address] [place] [id number] [place] [address] Sep, [facility] [address] [address] Sep, Depression, unspecified depression type F32.9 ; Chronic bronchitis, unspecified chronic bronchitis type J42 ; Chronic pain syndrome G89.4 and Anxiety F41.9 [employer] [facility] [address] [place] [id number] Sep History of Clostridium difficile infection Z86.19 and History of stroke Z86.73 [facility] [address] [place] [id number] [facility] [id number] Sep, Anxiety F41.9 [facility] [address] [address] Sep, Chronic pain syndrome G89.4 [facility] [address] [address] Sep, [facility] [address] [place] [id number] [place] [id number] Sep, [facility] [address] [address] Aug, Anxiety F41.9 [facility] [address] [address] Aug, Anxiety F41.9 [facility] [address] [address] Aug, [facility] [address] [address] 14 Aug, 2016 Acute knee pain, unspecified laterality M25.569 [facility] [address] [address] 13 Aug, 2016 [facility] [address] [address] 09 Aug, 2016 Chronic pain syndrome G89.4 [facility] [address] [facility] [place] [address] 08 Aug, 2016 [facility] [address] [place] [id number] [place] [address] Aug, [facility] [address] [place] [id number] [place] [address] Jul, [facility] [address] [place] [id number] [place] [address] Jul, Anxiety F41.9 [facility] [address] [place] [id number] [place] [address] Jul, Clostridium difficile diarrhea A04.7 [employer] [address] [place] [id number] Jul Clostridium difficile diarrhea A04.7 ; Chronic pain syndrome G89.4 ; Chronic obstructive pulmon disease w acute lower resp infct J44.0 and Pain in right knee M25.561 [facility] [address] [id number] [id number] Jul, [facility] [address] [facility] [id number] [place] [address] Jul, Anxiety F41.9 and Chronic pa in syndrome G89.4 [facility] [address] [place] [id number] [place] [address] Jun, Anxiety F41.9 [place] [address] [place] [id number] [place] [address] Jun, Rheumatoid arthritis 714.0 [facility] [address] [facility] [place] [address] Jun, Chronic pain syndrome G89.4 [place] [address] [place] [id number] [place] [address] Jun, [facility] [address] [place] [id number] [place] [address] Jun, [place] [address] [place] [id number] [place] [address] Jun, History of pneumonia Z87.01 and History of Clostridium difficile Z87.19 [facility] [address] [address] Jun, [facility] [address] [address] May, [facility] [address] [address] May, Anxiety F41.9 [facility] [address] [address] May, Chronic pain syndrome G89.4 [place] [address] [address] May, Chronic bronchitis, unspecified chronic bronchitis type J42 [place] [address] [address] May, [place] [address] [address] May, C. difficile diarrhea A04.7 ; Peripheral edema R60.9 ; COPD (chronic obstructive pulmonary disease) J44.9 ; Rheumatoid arthritis, involving unspecified site, unspecified rheumatoid factor presence M06.9 ; Pain in right knee M25.561 ; Pain in left knee M25.562 and Other chronic pain G89.29 [place] [address] [address] May, [facility] [address] [address] May, [facility] [address] [address] May, Anxiety F41.9 [facility] [address] [address] Apr, [place] [address] [address] Apr, Chronic pain syndrome G89.4 [place] [address] [address] Apr, Leg pain, left M79.605 [place] [address] [address] 14 Apr, 2016 [place] [address] [address] Apr, [place] [address] [address] Apr, [place] [address] [address] Mar, Chronic pain syndrome G89.4 [place] [address] [address] Mar, Acute frontal sinusitis, recurrence not specified J01.10 [place] [address] [address] 20 Mar, 2016 Iron deficiency anemia, unspecified iron deficiency anemia type D50.9 ; Rheumatoid arthritis with positive rheumatoid factor, involving unspecified site M05.9 and Depression, unspecified depression type F32.9 [place] [address] [address] 13 Mar, 2016 Iron deficiency anemia, unspecified iron deficiency anemia type D50.9 ; Depression, unspecified depression type F32.9 and Rheumatoid arthritis with positive rheumatoid factor, involving unspecified site M05.9 [place] [address] [address] Mar, [place] [address] [address] Mar, [place] [address] [address] Feb, Chronic pain syndrome G89.4 [place] [address] [address] Feb, Status post partial amputation of left f oot Z89.432 ; Status post CVA Z86.73 ; Hemiplegia G81.90 and Anemia, unspecified type D64.9 [place] [address] [place] [id number] [place] [address] Feb, [facility] [address] [address] Feb, Anemia, unspecified type D64.9 [place] [address] [place] [address] [place] [address] Feb, [facility] [address] [address] Feb, Iron deficiency anemia, unspecified iron deficiency anemia type D50.9 [place] [address] [address] Feb, [place] [address] [address] Feb, Chronic bronchitis, unspecified chronic bronchitis type J42 [place] [address] [address] Feb, Iron deficiency anemia, unspecified iron deficiency anemia type D50.9 [place] [address] [place] [id number] [place] [address] Feb, Chronic pain syndrome G89.4 [place] [address] [address] Feb, Anemia, unspecified type D64.9 and Hypox ia R09.02 [place] [address] [address] Feb, Anemia, unspecified type D64.9 [place] [address] [place] [id number] [place] [address] Jan, [place] [address] [address] Jan, Anemia, unspecified type D64.9 [place] [address] [address] Jan, [facility] [address] [address] Jan, Anemia, unspecified type D64.9 [facility] [address] [address] Jan, Anemia, unspecified type D64.9 [facility] [address] [address] Jan, [facility] [address] [address] Jan, Anemia, unspecified type D64.9 [facility] [address] [address] Jan, [facility] [address] [address] Jan, [facility] [address] [address] Jan, Chronic pain syndrome G89.4 [facility] [address] [address] Jan, Anemia, unspecified type D64.9 [facility] [address] [address] Jan, Dysthymia F34.1 ; Cervicalgia M54.2 ; Fa tigue, unspecified type R53.83 and Depression, unspecified depression type F32.9 [place] [address] [address] Dec, [facility] [address] [address] Dec, Anxiety F41.9 [facility] [address] [address] Dec, Chronic pain syndrome G89.4 [facility] [address] [address] November, [facility] [address] [address] November, Edema R60.9 and Dizziness R42 [facility] [address] [place] [id number] [place] [address] November, [facility] [address] [address] November, [facility] [address] [address] November, COPD (chronic obstructive pulmonary dise ase) J44.9 ; Increased tracheal secretions J39.8 and Edema R60.9 [facility] [address] [place] [address] Oct, [facility] [address] [address] Oct, Shortness of breath R06.02 a nd Edema R60.9 [place] [address] [address] Oct, Chronic bronchitis, unspecified chronic bronchitis type J42 ; Peripheral vascular disease, unspecified I73.9 ; Rheumatoid arthritis M06.9 and Atrial fibrillation I48.91 [facility] [address] [address] Oct, [place] [address] [address] Oct, [facility] [address] [address] Oct, [facility] [address] [address] Oct, [facility] [address] [place] [address] Oct, COPD exacerbation J44.1 [place] [address] [address] 28 Sep, 2015 [place] [address] [address] Sep, [facility] [address] [address] Sep, [place] [address] [address] Aug, [place] [address] [address] Aug, 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 and PVD (peripher al vascular disease) I73.9 [place] [address] [address] Aug, Bronchitis J40 ; COPD (chronic obstructi ve pulmonary disease) J44.9 and Dysthymia F34.1 [place] [address] [address] Aug, [place] [address] [address] Jul, [place] [address] [address] Jul, [place] [address] [address] Jul, [place] [address] [address] Jun, [place] [address] [address] Jun, [place] [address] [address] Jun, Peripheral vascular disease I73.9 [place] [address] [address] Jun, [place] [address] [address] Jun, [place] [address] [address] Jun, Leg pain, left M79.605 ; Dysphagia, unsp ecified dysphagia R13.10 ; Insomnia, unspecified type G47.00 ; PVD (peripheral vascular disease) I73.9 and Status post partial amputation of left foot Z89.432 [facility] [id number] [place] [address] May, [facility] [id number] [place] [address] May, [facility] [id number] [place] [address] May, [facility] [id number] [place] [address] May, [facility] [id number] [place] [address] May, [facility] [id number] [place] [address] Apr, [facility] [id number] [place] [address] Apr, [facility] [id number] [place] [address] Mar, [facility] [id number] [place] [address] Mar, [facility] [id number] [place] [address] Feb, [facility] [address] [address] Feb, Nicotine abuse 305.1 ; Arthralgia 719.40 and 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 [facility] [id number] [place] [address] Feb, [facility] [id number] [place] [address] Jan, [facility] [id number] [place] [address] Jan, [facility] [address] [address] Jan, [facility] [id number] [place] [address] Jan, [facility] [id number] [place] [address] Jan, 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 ; Rheumatoid arth ritis 714.0 ; Hypertension 401.9 ; GERD (gastroesophageal reflux disease) 530.81 ; Nicotine addiction 305.1 and Leukocytosis 288.60 [facility] [id number] [place] [address] Jan, [facility] [id number] [place] [address] Jan, [facility] [id number] [place] [address] Jan, [facility] [id number] [place] [address] Jan, [facility] [id number] [place] [address] Jan, [facility] [id number] [place] [address] Dec, [facility] [id number] [place] [address] Dec, [facility] [id number] [place] [address] Dec, [facility] [id number] [place] [address] Dec, [facility] [id number] [place] [address] November, [facility] [id number] [place] [address] November, [facility] [id number] [place] [address] November, Shortness of breath 786.05 [facility] [id number] [place] [address] November, Rheumatoid arthritis 714.0 [facility] [id number] [place] [address] November, 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 [facility] [address] [address] November, Neuropathy 355.9 ; Insomnia 780.52 ; Dys thymia 300.4 ; Shortness of breath 786.05 ; Rheumatoid arthritis 714.0 and Nausea 787.02 [facility] [address] [address] November, [facility] [address] [address] November, [facility] [address] [address] Oct, [facility] [address] [address] Oct, [facility] [address] [address] Oct, [facility] [address] [address] Oct, [facility] [address] [address] Sep, [facility] [address] [address] Sep, [facility] [address] [address] Sep, [facility] [id number] [place] [address] Sep, [facility] [address] [address] Sep, [facility] [address] [address] Sep, [facility] [address] [address] Sep, [facility] [address] [place] [address] Sep, [facility] [place] [facility] [address] [facility] [id number] [place] [address] Aug, [facility] [place] [facility] [address] [id number] [place] [address] Aug, [facility] [place] [facility] [address] [id number] [place] [address] Aug, [facility] [place] [facility] [address] [id number] [place] [address] Aug, [facility] [place] [facility] [address] [id number] [place] [address] Aug, [facility] [place] [facility] [address] [id number] [place] [address] Aug, [facility] [place] [facility] [address] [id number] [place] [address] Jul, [facility] [place] [facility] [address] [id number] [place] [address] Jul, [facility] [place] [facility] [address] [id number] [place] [address] Jul, [facility] [place] [facility] [address] [id number] [place] [address] Jul, [facility] [place] [facility] [address] [id number] [place] [address] Jul, [facility] [place] [facility] [address] [id number] [place] [address] Jul, [facility] [place] [facility] [address] [id number] [place] [address] Jul, [facility] [place] [facility] [address] [id number] [place] [address] Jul, [facility] [place] [facility] [address] [id number] [place] [address] Jul, [facility] [place] [facility] [address] [id number] [place] [address] Jul, [facility] [place] [facility] [address] [id number] [place] [address] Jun, [facility] [place] [facility] [address] [id number] [place] [address] Jun, [facility] [place] [facility] [address] [id number] [place] [address] Jun, [facility] [place] [facility] [address] [id number] [place] [address] Jun, [facility] [place] [facility] [address] [id number] [place] [address] Jun, [facility] [place] [facility] [address] [id number] [place] [address] Jun, [facility] [place] [facility] [address] [id number] [place] [address] Jun, [facility] [place] [facility] [address] [id number] [place] [address] Jun, [facility] [place] [facility] [address] [id number] [place] [address] Jun, [facility] [place] [facility] [address] [id number] [place] [address] Jun, [facility] [place] [facility] [address] [id number] [place] [address] Jun, [facility] [place] [facility] [address] [id number] [place] [address] Jun, [facility] [place] [facility] [address] [id number] [place] [address] Jun, [facility] [place] [facility] [address] [id number] [place] [address] Jun, [facility] [place] [facility] [address] [id number] [place] [address] Jun, [facility] [place] [facility] [address] [id number] [place] [address] Jun, [facility] [place] [facility] [address] [id number] [place] [address] May, [facility] [place] [facility] [address] [id number] [place] [address] May, [facility] [place] [facility] [address] [id number] [place] [address] May, [facility] [place] [facility] [address] [id number] [place] [address] May, [facility] [place] [facility] [address] [id number] [place] [address] May, [facility] [place] [facility] [address] [id number] [place] [address] May, [facility] [place] [facility] [address] [id number] [place] [address] May, [facility] [place] [facility] [address] [id number] [place] [address] May, [facility] [place] [facility] [address] [id number] [place] [address] May, [facility] [place] [facility] [address] [id number] [place] [address] Apr, [facility] [place] [facility] [address] [id number] [place] [address] Apr, [facility] [place] [facility] [address] [id number] [place] [address] Apr, [facility] [place] [facility] [address] [id number] [place] [address] Apr, [facility] [place] [facility] [address] [id number] [place] [address] Apr, [facility] [place] [facility] [address] [id number] [place] [address] Apr, [facility] [place] [facility] [address] [id number] [place] [address] Apr, [facility] [place] [facility] [address] [id number] [place] [address] Apr, [facility] [place] [facility] [address] [id number] [place] [address] 07 Apr, 2013 [facility] [place] [facility] [address] [id number] [place] [address] Apr, 2013 [facility] [place] [facility] [address] [facility] [id number] [place] [address] Apr, [facility] [place] [facility] [address] [facility] [id number] [place] [address] Apr, [facility] [place] [facility] [address] [facility] [id number] [place] [address] Mar, 2013 [facility] [place] [facility] [address] [facility] [id number] [place] [address] Mar, 2013 [facility] [place] [facility] [address] [id number] [place] [address] Mar, 2013 [facility] [place] [facility] [address] [id number] [place] [address] Mar, 2013 [facility] [place] [facility] [address] [id number] [place] [address] Mar, 2013 [facility] [place] [facility] [address] [facility] [id number] [place] [address] Mar, 2013 [facility] [place] [facility] [address] [id number] [place] [address] Mar, 2013 [facility] [place] [facility] [address] [id number] [place] [address] Mar, 2013 [facility] [place] [facility] [address] [id number] [place] [address] Mar, 2013 [facility] [place] [facility] [address] [facility] [id number] [place] [address] Mar, 2013 [facility] [place] [facility] [address] [id number] [place] [address] Feb, [facility] [place] [facility] [address] [id number] [place] [address] Feb, [facility] [place] [facility] [address] [id number] [place] [address] Feb, [facility] [place] [facility] [address] [id number] [place] [address] Feb, [facility] [place] [facility] [address] [facility] [id number] [facility] [facility] [place] [address] Feb, [facility] [place] [facility] [address] [facility] [id number] [place] [address] Feb, [facility] [place] [facility] [address] [id number] [facility] [facility] [place] [address] Feb, [facility] [place] [facility] [address] [facility] [id number] [facility] [facility] [place] [address] Feb, [facility] [place] [facility] [address] [id number] [place] [address] Feb, [facility] [place] [facility] [address] [id number] [place] [address] Feb, [facility] [place] [facility] [address] [id number] [place] [address] Feb, [facility] [place] [facility] [address] [facility] [id number] [place] [address] Feb, [facility] [place] [facility] [address] [id number] [place] [address] Feb, [facility] [place] [facility] [address] [id number] [place] [address] Feb, [facility] [place] [facility] [address] [id number] [place] [address] Feb, [facility] [place] [facility] [address] [facility] [id number] [place] [address] Feb, [facility] [place] [facility] [address] [id number] [place] [address] Jan, [facility] [place] [facility] [address] [facility] [id number] [place] [address] Jan, [facility] [place] [facility] [address] [facility] [id number] [place] [address] Jan, [facility] [place] [facility] [address] [facility] [id number] [place] [address] Jan, [facility] [place] [facility] [address] [facility] [id number] [facility] [facility] [place] [address] Jan, [facility] [place] [facility] [address] [facility] [id number] [facility] [facility] [place] [address] Jan, [facility] [place] [facility] [address] [id number] [facility] [facility] [place] [address] Dec, [facility] [place] [facility] [address] [facility] [id number] [place] [address] Dec, [facility] [place] [facility] [address] [facility] [id number] [facility] [facility] [place] [address] Dec, [facility] [place] [facility] [address] [id number] [facility] [facility] [place] [address] Dec, [facility] [place] [facility] [address] [id number] [facility] [facility] [place] [address] Dec, [facility] [place] [facility] [address] [id number] [place] [address] Dec, [facility] [place] [facility] [address] [id number] [facility] [facility] [place] [address] Dec, [facility] [place] [facility] [address] [id number] [place] [address] Dec, [facility] [place] [facility] [address] [id number] [place] [address] November, [facility] [place] [facility] [address] [id number] [place] [address] November, [facility] [place] [facility] [address] [id number] [facility] [facility] [place] [address] November, [facility] [place] [facility] [address] [id number] [place] [address] November, [facility] [place] [facility] [address] [id number] [place] [address] November, [facility] [place] [facility] [address] [id number] [place] [address] November, [facility] [place] [facility] [address] [id number] [facility] [facility] [place] [address] 29 Oct, 2013 [facility] [place] [facility] [address] [facility] [id number] [place] [address] Oct, [facility] [place] [facility] [address] [id number] [place] [address] Oct, [facility] [place] [facility] [address] [id number] [place] [address] Oct, [facility] [place] [facility] [address] [id number] [place] [address] Sep, [facility] [place] [facility] [address] [id number] [place] [address] Sep, [facility] [place] [facility] [address] [id number] [place] [address] Sep, [facility] [place] [facility] [address] [id number] [place] [address] Sep, [facility] [place] [facility] [address] [id number] [place] [address] Sep, [facility] [place] [facility] [address] [id number] [place] [address] Sep, [facility] [place] [facility] [address] [id number] [place] [address] Aug, [facility] [place] [facility] [address] [id number] [place] [address] Aug, [facility] [place] [facility] [address] [id number] [place] [address] Aug, [facility] [place] [facility] [address] [id number] [place] [address] Aug, [facility] [place] [facility] [address] [id number] [place] [address] 10 Aug, 2013 [facility] [place] [facility] [address] [id number] [place] [address] 10 Aug, 2013 [facility] [place] [facility] [address] [id number] [place] [address] Jul, [facility] [place] [facility] [address] [facility] [id number] [place] [address] Jul, [facility] [place] [facility] [address] [facility] [id number] [place] [address] Jul, [facility] [place] [facility] [address] [id number] [place] [address] Jul, [facility] [place] [facility] [address] [id number] [place] [address] Jul, [facility] [place] [facility] [address] [facility] [id number] [place] [address] Jul, [facility] [place] [facility] [address] [id number] [place] [address] Jul, [facility] [place] [facility] [address] [id number] [place] [address] Jul, [facility] [place] [facility] [address] [id number] [place] [address] Jul, [facility] [place] [facility] [address] [id number] [place] [address] Jul, [facility] [place] [facility] [address] [id number] [place] [address] Jul, [facility] [place] [facility] [address] [id number] [place] [address] Jul, [facility] [place] [facility] [address] [id number] [place] [address] Jul, [facility] [place] [facility] [address] [facility] [id number] [place] [address] Jul, [facility] [place] [facility] [address] [id number] [place] [address] Jul, [facility] [place] [facility] [address] [id number] [place] [address] Jun, [facility] [place] [facility] [address] [id number] [place] [address] Jun, [facility] [place] [facility] [id number] [place] [address] Jun, [facility] [id number] [place] [address] Jun, [facility] [id number] [place] [address] May, [facility] [id number] [place] [address] May, [id number] [id number] May, [facility] [id number] [place] [address] May, [facility] [id number] [place] [address] May, [facility] [id number] [place] [address] May, [facility] [id number] [place] [address] May, [facility] [id number] [place] [address] May, [facility] [id number] [place] [address] May, [id number] [id number] May, [facility] [address] [id number] [place] [address] May, [address] [id number] [phone] May, [facility] [id number] [place] [address] May, [id number] [place] [phone] May, [facility] [address] [id number] [place] [address] May, IMMUNIZATIONS No Known Immunizations SOCIAL HISTORY [...] Diarrhea, leukocytosis--ryan[facility] 01/08/16 Hospitalization History pseudomemranous colitis, sepsis--[facility] 04/21/2016 Hospitalization History C Diff--[facility] 05/10/2016 Hospitalization History sepsis, pneumonia, diarrhea--[facility] Hospitalization History recurrent cdiff, pneumonia-[facility] Hospitalization History sepsis,pneumonia- [facility] 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
--- OUTSIDE RECORDS SUMMARY | 2019-11-07 10:21 | XMS REPORT ---
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 429291836 Problem COPD (chronic obstructive pulmonary disease) J44.9 Active 78605231 Problem Hypertension I10 Active 3262665 3 Problem Primary insomnia F51.01 Active 397 2004 Problem Hx of Clostridium difficile infection Z86.19 Active 589287133 Problem Chronic obstructive pulmon disease w acute lower resp infc t J44.0 Active 513585152 Problem History of arthroplasty of right knee Z96.651 Active 956172624 Problem Leg pain, left M79.605 Active 13896 7008 Problem Status post partial amputation of left foot Z89.43 2 Active 347739639 Problem Edema R60.9 Active 060047741 Problem Tobacco abuse, 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 Ac tive 898424760 Problem Anxiety F41.9 Active 67333762 Problem Chronic pain syndrome G89.4 Active 468344244 Problem Anemia, unspecified type D64.9 Activ e 428296076 Problem Depression, unspecified depression type F32.9 Active 15046763 Problem Other chronic pain G89.29 Active 8 1740079 Problem Iron deficiency anemia, unspecified iron deficiency an emia type D50.9 Active 66781764 Problem Insomnia, unspecified G47.00 Active 568869476 Problem Seasonal allergic rhinitis due to pollen J30.1 Active 16214123 Problem History of oral cancer Z85.819 Active 032586117 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 36 5612423 Problem Atrial fibrillation I48.91 Active 89889918 Problem Chronic obstructive pulmonary disease with (acute) exa cerbation J44.1 Active 373766348 Problem Rheumatoid arthritis M06.9 Active 04603388 Problem Dysthymia F34.1 Active 02183443 Problem Neuropathy G62.9 Active 418160794 Problem Rheumatoid arthritis with po sitive rheumatoid factor, involving unspecified site M05.9 Active 96310973 Problem Hemiplegia and hemiparesis f ollowing cerebral infarction affecting right dominant side I69.351 Active 954832006 Problem Cancer of neck C76.0 Active 32250 9000 ALLERGIES No Information ENCOUNTERS Encounter Location Date Diagnosis [place] [address] [address] November, [place] [address] [address] Aug, [place] [address] [address] [place] [address] Aug, Chronic obstructive pulmonar y disease with (acute) exacerbation J44.1 [place] [address] [address] 12 Aug, 2019 [facility] I26.93 ; Rheumatoid arthritis with positive rheumatoid factor, involving unspecified site M05.9 ; Chronic pain syndrome G89.4 ; Leg pain, left M79.605 and 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 [place] [address] [address] Aug, [place] [address] [address] Aug, 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 [place] [address] [address] 07 Aug, 2019 Chronic pain syndrome G89.4 [place] [address] [address] Jul, Primary insomnia F51.01 [place] [address] [address] Jul, Chronic pain syndrome G89.4 [place] [address] [address] Jul, [place] [address] [address] Jul, [place] [address] [address] Jul, Rheumatoid arthritis with positive rheum atoid factor, involving unspecified site M05.9 and Chronic pain syndrome G89.4 [place] [address] [address] Jul, [place] [address] [address] Jun, Rheumatoid arthritis with positive rheum atoid factor, involving unspecified site M05.9 [place] [address] [address] Jun, Chronic pain syndrome G89.4 ; Rheumatoid arthritis with positive rheumatoid factor, involving unspecified site M05.9 and Anxiety F41.9 [place] [address] [address] Jun, [place] [address] [address] Jun, Hemorrhoids, unspecified hemorrhoid type K64.9 [place] [address] [address] Jun, Hemorrhoids, unspecified hemorrhoid type K64.9 ; Cancer of neck C76.0 and Drug-induced constipation K59.03 [place] [address] [address] Jun, [place] [address] [address] Jun, [place] [address] [address] Jun, Rheumatoid arthritis with positive rheum atoid factor, involving unspecified site M05.9 [place] [address] [place] [id number] [place] [address] May, [facility] [address] [place] [id number] [place] [address] May, Rheumatoid arthritis with positive rheum atoid factor, involving unspecified site M05.9 [place] [address] [address] Apr, Primary insomnia F51.01 [place] [address] [address] Apr, Rheumatoid arthritis with positive rheum atoid factor, involving unspecified site M05.9 [place] [address] [place] [id number] [place] [address] Mar, [place] [address] [address] Mar, [place] [address] [address] Mar, Rheumatoid arthritis with positive rheum atoid factor, involving unspecified site M05.9 ; Atrial fibrillation I48.91 ; Chronic pain syndrome G89.4 ; Iron deficiency anemia, unspecified iron deficiency anemia type D50.9 and Hemiplegia and hemiparesis following cerebral infarction affecting right dominant side I69.351 [place] [address] [address] Mar, Chronic pain syndrome G89.4 and Primary insomnia F51.01 [facility] [address] [address] Mar, Rheumatoid arthritis with positive rheum atoid factor, involving unspecified site M05.9 [facility] [address] [place] [id number] [place] [address] Feb, Rheumatoid arthritis with positive rheum atoid factor, involving unspecified site M05.9 ; Chronic pain syndrome G89.4 ; Atrial fibrillation I48.91 ; Iron deficiency anemia, unspecified iron deficiency anemia type D50.9 ; Hemiplegia and hemiparesis following cerebral infarction affecting right dominant side I69.351 and Primary insomnia F51.01 [facility] [address] [address] Feb, Chronic pain syndrome G89.4 [facility] [address] [address] Jan, Chronic pain syndrome G89.4 [facility] [address] [address] Jan, [facility] [address] [address] Jan, [facility] [address] [address] Dec, [facility] [address] [address] Dec, Chronic pain syndrome G89.4 [facility] [address] [address] Dec, [facility] [address] [address] November, Chronic pain syndrome G89.4 [facility] [address] [address] Oct, Chronic pain syndrome G89.4 [facility] [address] [address] Oct, [facility] [address] [address] Sep, Chronic pain syndrome G89.4 [facility] [address] [address] Sep, Leg pain, left M79.605 ; Right leg pain M79.604 and Reactive cervical nodes R59.0 [facility] [address] [address] Sep, [facility] [address] [place] [id number] [place] [address] Sep, Neuropathy G62.9 [facility] [address] [id number] [place] [id number] Sep, [place] [address] [place] [id number] [place] [address] Sep, Lymphadenopathy of left cervical region R59.0 [place] [address] [address] Sep, Lymphadenopathy of left cervical region R59.0 and Neuropathy G62.9 [place] [address] [address] Aug, Chronic pain syndrome G89.4 [place] [address] [address] Aug, [place] [address] [address] Aug, Peripheral vascular disease, unspecified I73.9 ; Other chronic pain G89.29 ; Chronic obstructive pulmon disease w acute lower resp infct J44.0 and Primary insomnia F51.01 [place] [address] [address] Aug, Chronic pain syndrome G89.4 [place] [address] [address] Jul, Chronic pain syndrome G89.4 [place] [address] [address] Jun, Chronic pain syndrome G89.4 [place] [address] [address] May, Chronic pain syndrome G89.4 [facility] [address] [facility] [id number] [address] [place] [address] Apr, Cough R05 and Viral illness B34.9 [place] [address] [address] Apr, Encounter for immunization Z23 [facility] [address] [place] [id number] [place] [address] Apr, Chronic pain syndrome G89.4 [facility] [address] [facility] [id number] [address] [place] [address] 07 Apr, 2018 Left acute otitis media H66. 92 [facility] [address] [address] Mar, Rheumatoid arthritis M06.9 ; Other chron ic pain G89.29 ; History of oral cancer Z85.819 and History of tachycardia Z87.898 [facility] [address] [address] Mar, Chronic pain syndrome G89.4 [facility] [address] [address] Feb, Chronic pain syndrome G89.4 [facility] [address] [address] Feb, Chronic pain syndrome G89.4 [facility] [address] [address] Jan, Chronic pain syndrome G89.4 [facility] [address] [address] Jan, [facility] [address] [address] Dec, Chronic pain syndrome G89.4 [facility] [address] [address] November, Chronic pain syndrome G89.4 [facility] [address] [address] November, [facility] [address] [address] Oct, Chronic pain syndrome G89.4 [facility] [address] [address] Oct, [facility] [address] [place] [id number] [place] [address] Oct, Chronic pain syndrome G89.4 [facility] [address] [address] Oct, [facility] [address] [address] Oct, [facility] [address] [address] Sep, Left upper quadrant pain R10.12 ; Chroni c pain syndrome G89.4 ; Left lower quadrant pain R10.32 ; Other chronic pain G89.29 ; Sacrococcygeal disorders, not elsewhere classified M53.3 and Seasonal allergic rhinitis due to pollen J30.1 [facility] [address] [address] Sep, Chronic pain syndrome G89.4 [facility] [address] [address] Sep, [facility] [address] [address] Aug, Chronic pain syndrome G89.4 [facility] [address] [address] Aug, [facility] [address] [address] Aug, Insomnia, unspecified G47.00 [facility] [address] [address] Jul, [facility] [address] [address] Jul, [facility] [address] [address] Jul, Chronic pain syndrome G89.4 [facility] [address] [address] Jun, Chronic pain syndrome G89.4 [place] [address] [address] Jun, Chronic pain syndrome G89.4 [facility] [address] [address] May, [facility] [address] [address] May, Shortness of breath R06.02 ; Peripheral vascular disease, unspecified I73.9 ; Pain in right knee M25.561 ; Other chronic pain G89.29 ; Chest wall pain R07.89 ; Chronic pain syndrome G89.4 ; Primary insomnia F51.01 and Ear pain, left H92.02 [place] [address] [address] May, Anxiety F41.9 [place] [address] [address] Apr, Pneumonia due to infectious organism, un specified laterality, unspecified part of lung J18.9 ; Hypoxia R09.02 ; Bradycardia R00.1 ; History of Clostridium difficile Z87.19 and Primary insomnia F51.01 [place] [address] [address] Apr, Anxiety F41.9 [place] [address] [address] Apr, [place] [address] [address] Mar, Anxiety F41.9 [place] [address] [address] Feb, [place] [address] [address] Feb, [place] [address] [address] Feb, Abnormal finding on urinalysis R82.90 [place] [address] [address] Feb, [facility] [address] [address] Feb, Shortness of breath R06.02 ; Tachycardia R00.0 ; Cough R05 ; Ill feeling R68.89 and Abnormal finding on urinalysis R82.90 [facility] [address] [address] Feb, Anxiety F41.9 [facility] [address] [facility] [id number] [address] [place] [address] Feb, Sore throat J02.9 and Acute diffuse otitis externa of left ear H60.312 [place] [address] [address] Jan, [facility] [address] [address] Jan, [facility] [id number] [id number] Jan, [facility] [address] [address] Jan, Depression, unspecified depression type F32.9 ; Chronic bronchitis, unspecified chronic bronchitis type J42 ; Chronic pain syndrome G89.4 and Anxiety F41.9 [facility] [address] [address] Jan, [place] [address] [address] Jan, [place] [address] [address] Jan, [place] [id number] [id number] Jan, Chronic pain syndrome G89.4 [email or web address] [facility] [address] [place] [id number] Dec History of right knee surgery Z98.890 [place] [address] [address] Dec, [place] [address] [place] [id number] [place] [address] Dec, Chronic pain syndrome G89.4 [place] [address] [place] [id number] [place] [address] November, Anxiety F41.9 [facility] [address] [facility] [id number] [address] [address] November, Acute cystitis without hemat uria N30.00 [facility] [address] [place] [id number] [address] November, Fever, unspecified fever cau se R50.9 and Acute cystitis without hematuria N30.00 [place] [address] [address] November, Chronic pain syndrome G89.4 [place] [address] [address] Oct, Anxiety F41.9 [place] [address] [address] Oct, Chronic pain syndrome G89.4 [place] [address] [address] Oct, Chronic pain syndrome G89.4 [place] [address] [address] Oct, [place] [address] [address] Oct, Chronic pain syndrome G89.4 ; Pain in ri ght knee M25.561 ; History of Clostridium difficile Z87.19 ; Iron deficiency anemia, unspecified iron deficiency anemia type D50.9 ; Peripheral vascular disease, unspecified I73.9 and Atrial fibrillation I48.91 [place] [address] [place] [id number] [place] [address] Oct, [place] [address] [address] Oct, Chronic pain syndrome G89.4 [facility] [address] [place] [id number] [place] [address] Sep, [facility] [address] [address] Sep, Depression, unspecified depression type F32.9 ; Chronic bronchitis, unspecified chronic bronchitis type J42 ; Chronic pain syndrome G89.4 and Anxiety F41.9 [employer] [address] [place] [id number] Sep History of Clostridium difficile infection Z86.19 and History of stroke Z86.73 [facility] [address] [place] [id number] [facility] [id number] Sep, Anxiety F41.9 [facility] [address] [address] Sep, Chronic pain syndrome G89.4 [facility] [address] [address] Sep, [facility] [address] [place] [id number] [place] [id number] Sep, [facility] [address] [address] Aug, Anxiety F41.9 [facility] [address] [address] Aug, Anxiety F41.9 [facility] [address] [address] Aug, [facility] [address] [address] 14 Aug, 2016 Acute knee pain, unspecified laterality M25.569 [facility] [address] [address] 13 Aug, 2016 [facility] [address] [address] 09 Aug, 2016 Chronic pain syndrome G89.4 [facility] [address] [facility] [place] [address] 08 Aug, 2016 [facility] [address] [place] [id number] [place] [address] Aug, [facility] [address] [place] [id number] [place] [address] Jul, [facility] [address] [place] [id number] [place] [address] Jul, Anxiety F41.9 [facility] [address] [place] [id number] [place] [address] Jul, Clostridium difficile diarrhea A04.7 [email or web address] [address] [place] [id number] Jul Clostridium difficile diarrhea A04.7 ; Chronic pain syndrome G89.4 ; Chronic obstructive pulmon disease w acute lower resp infct J44.0 and Pain in right knee M25.561 [facility] [address] [id number] [id number] Jul, [facility] [address] [facility] [id number] [address] [address] Jul, Anxiety F41.9 and Chronic pa in syndrome G89.4 [facility] [address] [place] [id number] [place] [address] Jun, Anxiety F41.9 [place] [address] [place] [id number] [place] [address] Jun, Rheumatoid arthritis 714.0 [facility] [address] [id number] [place] [address] Jun, Chronic pain syndrome G89.4 [place] [address] [place] [id number] [place] [address] Jun, [facility] [address] [place] [id number] [place] [address] Jun, [place] [address] [place] [id number] [place] [address] Jun, History of pneumonia Z87.01 and History of Clostridium difficile Z87.19 [facility] [address] [address] Jun, [facility] [address] [address] May, [facility] [address] [address] May, Anxiety F41.9 [facility] [address] [address] May, Chronic pain syndrome G89.4 [place] [address] [address] May, Chronic bronchitis, unspecified chronic bronchitis type J42 [place] [address] [address] May, [place] [address] [address] May, C. difficile diarrhea A04.7 ; Peripheral edema R60.9 ; COPD (chronic obstructive pulmonary disease) J44.9 ; Rheumatoid arthritis, involving unspecified site, unspecified rheumatoid factor presence M06.9 ; Pain in right knee M25.561 ; Pain in left knee M25.562 and Other chronic pain G89.29 [place] [address] [address] May, [facility] [address] [address] May, [facility] [address] [address] May, Anxiety F41.9 [facility] [address] [address] Apr, [place] [address] [address] Apr, Chronic pain syndrome G89.4 [place] [address] [address] Apr, Leg pain, left M79.605 [place] [address] [address] 14 Apr, 2016 [place] [address] [address] Apr, [place] [address] [address] Apr, [place] [address] [address] Mar, Chronic pain syndrome G89.4 [place] [address] [address] Mar, Acute frontal sinusitis, recurrence not specified J01.10 [place] [address] [address] 20 Mar, 2016 Iron deficiency anemia, unspecified iron deficiency anemia type D50.9 ; Rheumatoid arthritis with positive rheumatoid factor, involving unspecified site M05.9 and Depression, unspecified depression type F32.9 [place] [address] [address] 13 Mar, 2016 Iron deficiency anemia, unspecified iron deficiency anemia type D50.9 ; Depression, unspecified depression type F32.9 and Rheumatoid arthritis with positive rheumatoid factor, involving unspecified site M05.9 [place] [address] [address] Mar, [place] [address] [address] Mar, [place] [address] [address] Feb, Chronic pain syndrome G89.4 [place] [address] [address] Feb, Status post partial amputation of left f oot Z89.432 ; Status post CVA Z86.73 ; Hemiplegia G81.90 and Anemia, unspecified type D64.9 [place] [address] [place] [id number] [place] [address] Feb, [facility] [address] [address] Feb, Anemia, unspecified type D64.9 [place] [address] [place] [id number] [place] [address] Feb, [facility] [address] [address] Feb, Iron deficiency anemia, unspecified iron deficiency anemia type D50.9 [place] [address] [address] Feb, [place] [address] [address] Feb, Chronic bronchitis, unspecified chronic bronchitis type J42 [place] [address] [address] Feb, Iron deficiency anemia, unspecified iron deficiency anemia type D50.9 [place] [address] [place] [id number] [place] [address] Feb, Chronic pain syndrome G89.4 [place] [address] [address] Feb, Anemia, unspecified type D64.9 and Hypox ia R09.02 [place] [address] [address] Feb, Anemia, unspecified type D64.9 [place] [address] [place] [id number] [place] [address] Jan, [place] [address] [address] Jan, Anemia, unspecified type D64.9 [place] [address] [address] Jan, [facility] [address] [address] Jan, Anemia, unspecified type D64.9 [facility] [address] [address] Jan, Anemia, unspecified type D64.9 [facility] [address] [address] Jan, [facility] [address] [address] Jan, Anemia, unspecified type D64.9 [facility] [address] [address] Jan, [facility] [address] [address] Jan, [facility] [address] [address] Jan, Chronic pain syndrome G89.4 [facility] [address] [address] Jan, Anemia, unspecified type D64.9 [facility] [address] [address] Jan, Dysthymia F34.1 ; Cervicalgia M54.2 ; Fa tigue, unspecified type R53.83 and Depression, unspecified depression type F32.9 [place] [address] [address] Dec, [facility] [address] [address] Dec, Anxiety F41.9 [facility] [address] [address] Dec, Chronic pain syndrome G89.4 [facility] [address] [address] November, [facility] [address] [address] November, Edema R60.9 and Dizziness R42 [facility] [address] [id number] [place] [address] November, [facility] [address] [address] November, [facility] [address] [address] November, COPD (chronic obstructive pulmonary dise ase) J44.9 ; Increased tracheal secretions J39.8 and Edema R60.9 [facility] [address] [place] [address] Oct, [facility] [address] [address] Oct, Shortness of breath R06.02 a nd Edema R60.9 [place] [address] [address] Oct, Chronic bronchitis, unspecified chronic bronchitis type J42 ; Peripheral vascular disease, unspecified I73.9 ; Rheumatoid arthritis M06.9 and Atrial fibrillation I48.91 [facility] [address] [address] Oct, [place] [address] [address] Oct, [facility] [address] [address] Oct, [facility] [address] [address] Oct, [facility] [address] [place] [address] Oct, COPD exacerbation J44.1 [place] [address] [address] 28 Sep, 2015 [place] [address] [address] Sep, [facility] [address] [address] Sep, [place] [address] [address] Aug, [place] [address] [address] Aug, 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 and PVD (peripher al vascular disease) I73.9 [place] [address] [address] Aug, Bronchitis J40 ; COPD (chronic obstructi ve pulmonary disease) J44.9 and Dysthymia F34.1 [place] [address] [address] Aug, [place] [address] [address] Jul, [place] [address] [address] Jul, [place] [address] [address] Jul, [place] [address] [address] Jun, [place] [address] [address] Jun, [place] [address] [address] Jun, Peripheral vascular disease I73.9 [place] [address] [address] Jun, [place] [address] [address] Jun, [place] [address] [address] Jun, Leg pain, left M79.605 ; Dysphagia, unsp ecified dysphagia R13.10 ; Insomnia, unspecified type G47.00 ; PVD (peripheral vascular disease) I73.9 and Status post partial amputation of left foot Z89.432 [facility] [id number] [place] [address] May, [facility] [id number] [place] [address] May, [facility] [id number] [place] [address] May, [facility] [id number] [place] [address] May, [facility] [id number] [place] [address] May, [facility] [id number] [place] [address] Apr, [facility] [id number] [place] [address] Apr, [facility] [id number] [place] [address] Mar, [facility] [id number] [place] [address] Mar, [facility] [id number] [place] [address] Feb, [facility] [address] [address] Feb, Nicotine abuse 305.1 ; Arthralgia 719.40 and 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 [facility] [id number] [place] [address] Feb, [facility] [id number] [place] [address] Jan, [facility] [id number] [place] [address] Jan, [facility] [address] [address] Jan, [facility] [id number] [place] [address] Jan, [facility] [id number] [place] [address] Jan, 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 ; Rheumatoid arth ritis 714.0 ; Hypertension 401.9 ; GERD (gastroesophageal reflux disease) 530.81 ; Nicotine addiction 305.1 and Leukocytosis 288.60 [facility] [id number] [place] [address] Jan, [facility] [id number] [place] [address] Jan, [facility] [id number] [place] [address] Jan, [facility] [id number] [place] [address] Jan, [facility] [id number] [place] [address] Jan, [facility] [id number] [place] [address] Dec, [facility] [id number] [place] [address] Dec, [facility] [id number] [place] [address] Dec, [facility] [id number] [place] [address] Dec, [facility] [id number] [place] [address] November, [facility] [id number] [place] [address] November, [facility] [id number] [place] [address] November, Shortness of breath 786.05 [facility] [id number] [place] [address] November, Rheumatoid arthritis 714.0 [facility] [id number] [place] [address] November, 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 [facility] [address] [address] November, Neuropathy 355.9 ; Insomnia 780.52 ; Dys thymia 300.4 ; Shortness of breath 786.05 ; Rheumatoid arthritis 714.0 and Nausea 787.02 [facility] [address] [address] November, [facility] [address] [address] November, [facility] [address] [address] Oct, [facility] [address] [address] Oct, [facility] [address] [address] Oct, [facility] [address] [address] Oct, [facility] [address] [address] Sep, [facility] [address] [address] Sep, [facility] [address] [address] Sep, [facility] [id number] [place] [address] Sep, [facility] [address] [address] Sep, [facility] [address] [address] Sep, [facility] [address] [address] Sep, [facility] [address] [place] [address] Sep, [facility] [place] [facility] [address] [facility] [id number] [place] [address] Aug, [facility] [place] [facility] [address] [id number] [place] [address] Aug, [facility] [place] [facility] [address] [id number] [place] [address] Aug, [facility] [place] [facility] [address] [id number] [place] [address] Aug, [facility] [place] [facility] [address] [id number] [place] [address] Aug, [facility] [place] [facility] [address] [id number] [place] [address] Aug, [facility] [place] [facility] [address] [id number] [place] [address] Jul, [facility] [place] [facility] [address] [id number] [place] [address] Jul, [facility] [place] [facility] [address] [id number] [place] [address] Jul, [facility] [place] [facility] [address] [id number] [place] [address] Jul, [facility] [place] [facility] [address] [id number] [place] [address] Jul, [facility] [place] [facility] [address] [id number] [place] [address] Jul, [facility] [place] [facility] [address] [id number] [place] [address] Jul, [facility] [place] [facility] [address] [id number] [place] [address] Jul, [facility] [place] [facility] [address] [id number] [place] [address] Jul, [facility] [place] [facility] [address] [id number] [place] [address] Jul, [facility] [place] [facility] [address] [id number] [place] [address] Jun, [facility] [place] [facility] [address] [id number] [place] [address] Jun, [facility] [place] [facility] [address] [id number] [place] [address] Jun, [facility] [place] [facility] [address] [id number] [place] [address] Jun, [facility] [place] [facility] [address] [id number] [place] [address] Jun, [facility] [place] [facility] [address] [id number] [place] [address] Jun, [facility] [place] [facility] [address] [id number] [place] [address] Jun, [facility] [place] [facility] [address] [id number] [place] [address] Jun, [facility] [place] [facility] [address] [id number] [place] [address] Jun, [facility] [place] [facility] [address] [id number] [place] [address] Jun, [facility] [place] [facility] [address] [id number] [place] [address] Jun, [facility] [place] [facility] [address] [id number] [place] [address] Jun, [facility] [place] [facility] [address] [id number] [place] [address] Jun, [facility] [place] [facility] [address] [id number] [place] [address] Jun, [facility] [place] [facility] [address] [id number] [place] [address] Jun, [facility] [place] [facility] [address] [id number] [place] [address] Jun, [facility] [place] [facility] [address] [id number] [place] [address] May, [facility] [place] [facility] [address] [id number] [place] [address] May, [facility] [place] [facility] [address] [id number] [place] [address] May, [facility] [place] [facility] [address] [id number] [place] [address] May, [facility] [place] [facility] [address] [id number] [place] [address] May, [facility] [place] [facility] [address] [id number] [place] [address] May, [facility] [place] [facility] [address] [id number] [place] [address] May, [facility] [place] [facility] [address] [id number] [place] [address] May, [facility] [place] [facility] [address] [id number] [place] [address] May, [facility] [place] [facility] [address] [id number] [place] [address] Apr, [facility] [place] [facility] [address] [id number] [place] [address] Apr, [facility] [place] [facility] [address] [id number] [place] [address] Apr, [facility] [place] [facility] [address] [id number] [place] [address] Apr, [facility] [place] [facility] [address] [id number] [place] [address] Apr, [facility] [place] [facility] [address] [id number] [place] [address] Apr, [facility] [place] [facility] [address] [id number] [place] [address] Apr, [facility] [place] [facility] [address] [id number] [place] [address] Apr, [facility] [place] [facility] [address] [id number] [place] [address] 07 Apr, 2013 [facility] [place] [facility] [address] [id number] [place] [address] Apr, 2013 [facility] [place] [facility] [address] [facility] [id number] [place] [address] Apr, [facility] [place] [facility] [address] [facility] [id number] [place] [address] Apr, [facility] [place] [facility] [address] [facility] [id number] [place] [address] Mar, 2013 [facility] [place] [facility] [address] [facility] [id number] [place] [address] Mar, 2013 [facility] [place] [facility] [address] [id number] [place] [address] Mar, 2013 [facility] [place] [facility] [address] [id number] [place] [address] Mar, 2013 [facility] [place] [facility] [address] [id number] [place] [address] Mar, 2013 [facility] [place] [facility] [address] [facility] [id number] [place] [address] Mar, 2013 [facility] [place] [facility] [address] [id number] [place] [address] Mar, 2013 [facility] [place] [facility] [address] [id number] [place] [address] Mar, 2013 [facility] [place] [facility] [address] [id number] [place] [address] Mar, 2013 [facility] [place] [facility] [address] [facility] [id number] [place] [address] Mar, 2013 [facility] [place] [facility] [address] [id number] [place] [address] Feb, [facility] [place] [facility] [address] [id number] [place] [address] Feb, [facility] [place] [facility] [address] [id number] [place] [address] Feb, [facility] [place] [facility] [address] [id number] [place] [address] Feb, [facility] [place] [facility] [address] [facility] [id number] [facility] [place] [address] Feb, [facility] [place] [facility] [address] [facility] [id number] [place] [address] Feb, [facility] [place] [facility] [address] [id number] [facility] [place] [address] Feb, [facility] [place] [facility] [address] [facility] [id number] [facility] [place] [address] Feb, [facility] [place] [facility] [address] [id number] [place] [address] Feb, [facility] [place] [facility] [address] [id number] [place] [address] Feb, [facility] [place] [facility] [address] [id number] [place] [address] Feb, [facility] [place] [facility] [address] [facility] [id number] [place] [address] Feb, [facility] [place] [facility] [address] [id number] [place] [address] Feb, [facility] [place] [facility] [address] [id number] [place] [address] Feb, [facility] [place] [facility] [address] [id number] [place] [address] Feb, [facility] [place] [facility] [address] [facility] [id number] [place] [address] Feb, [facility] [place] [facility] [address] [id number] [place] [address] Jan, [facility] [place] [facility] [address] [facility] [id number] [place] [address] Jan, [facility] [place] [facility] [address] [facility] [id number] [place] [address] Jan, [facility] [place] [facility] [address] [facility] [id number] [place] [address] Jan, [facility] [place] [facility] [address] [facility] [id number] [facility] [place] [address] Jan, [facility] [place] [facility] [address] [facility] [id number] [facility] [place] [address] Jan, [facility] [place] [facility] [address] [id number] [facility] [place] [address] Dec, [facility] [place] [facility] [address] [facility] [id number] [place] [address] Dec, [facility] [place] [facility] [address] [facility] [id number] [facility] [place] [address] Dec, [facility] [place] [facility] [address] [id number] [facility] [place] [address] Dec, [facility] [place] [facility] [address] [id number] [facility] [place] [address] Dec, [facility] [place] [facility] [address] [id number] [place] [address] Dec, [facility] [place] [facility] [address] [id number] [facility] [place] [address] Dec, [facility] [place] [facility] [address] [id number] [place] [address] Dec, [facility] [place] [facility] [address] [id number] [place] [address] November, [facility] [place] [facility] [address] [id number] [place] [address] November, [facility] [place] [facility] [address] [id number] [facility] [place] [address] November, [facility] [place] [facility] [address] [id number] [place] [address] November, [facility] [place] [facility] [address] [id number] [place] [address] November, [facility] [place] [facility] [address] [id number] [place] [address] November, [facility] [place] [facility] [address] [id number] [facility] [place] [address] 29 Oct, 2013 [facility] [place] [facility] [address] [facility] [id number] [place] [address] Oct, [facility] [place] [facility] [address] [id number] [place] [address] Oct, [facility] [place] [facility] [address] [id number] [place] [address] Oct, [facility] [place] [facility] [address] [id number] [place] [address] Sep, [facility] [place] [facility] [address] [id number] [place] [address] Sep, [facility] [place] [facility] [address] [id number] [place] [address] Sep, [facility] [place] [facility] [address] [id number] [place] [address] Sep, [facility] [place] [facility] [address] [id number] [place] [address] Sep, [facility] [place] [facility] [address] [id number] [place] [address] Sep, [facility] [place] [facility] [address] [id number] [place] [address] Aug, [facility] [place] [facility] [address] [id number] [place] [address] Aug, [facility] [place] [facility] [address] [id number] [place] [address] Aug, [facility] [place] [facility] [address] [id number] [place] [address] Aug, [facility] [place] [facility] [address] [id number] [place] [address] 10 Aug, 2013 [facility] [place] [facility] [address] [id number] [place] [address] 10 Aug, 2013 [facility] [place] [facility] [address] [id number] [place] [address] Jul, [facility] [place] [facility] [address] [facility] [id number] [place] [address] Jul, [facility] [place] [facility] [address] [facility] [id number] [place] [address] Jul, [facility] [place] [facility] [address] [id number] [place] [address] Jul, [facility] [place] [facility] [address] [id number] [place] [address] Jul, [facility] [place] [facility] [address] [facility] [id number] [place] [address] Jul, [facility] [place] [facility] [address] [id number] [place] [address] Jul, [facility] [place] [facility] [address] [id number] [place] [address] Jul, [facility] [place] [facility] [address] [id number] [place] [address] Jul, [facility] [place] [facility] [address] [id number] [place] [address] Jul, [facility] [place] [facility] [address] [id number] [place] [address] Jul, [facility] [place] [facility] [address] [id number] [place] [address] Jul, [facility] [place] [facility] [address] [id number] [place] [address] Jul, [facility] [place] [facility] [address] [facility] [id number] [place] [address] Jul, [facility] [place] [facility] [address] [id number] [place] [address] Jul, [facility] [place] [facility] [address] [id number] [place] [address] Jun, [facility] [address] [id number] [place] [address] Jun, [facility] [id number] [place] [address] Jun, [facility] [id number] [place] [address] Jun, [facility] [id number] [place] [address] May, [facility] [id number] [place] [address] May, [id number] [id number] May, [facility] [id number] [place] [address] May, [facility] [id number] [place] [address] May, [facility] [id number] [place] [address] May, [facility] [id number] [place] [address] May, [facility] [id number] [place] [address] May, [facility] [id number] [place] [address] May, [id number] [id number] May, [facility] [id number] [place] [address] May, [id number] [id number] May, [facility] [id number] [place] [address] May, [place] [id number] [place] [id number] May, [facility] [id number] [place] [address] May, IMMUNIZATIONS No Known Immunizations SOCIAL HISTORY [...] Hospitalization History sepsis, pneumonia, diarrhea--[facility] Hospitalization History recurrent cdiff, pneumonia-[facility] Hospitalization History sepsis,pneumonia- [facility] 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
--- OUTSIDE RECORDS SUMMARY | 2019-11-07 10:21 | XMS REPORT ---
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 051295578 Problem COPD (chronic obstructive pulmonary disease) J44.9 Active 90810618 Problem Hypertension I10 Active 4982935 3 Problem Primary insomnia F51.01 Active 397 2004 Problem Hx of Clostridium difficile infection Z86.19 Active 999928524 Problem Chronic obstructive pulmon disease w acute lower resp infc t J44.0 Active 998513853 Problem History of arthroplasty of right knee Z96.651 Active 828599147 Problem Leg pain, left M79.605 Active 23350 7008 Problem Status post partial amputation of left foot Z89.43 2 Active 851371374 Problem Edema R60.9 Active 685319213 Problem Tobacco abuse, 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 Ac tive 253252098 Problem Anxiety F41.9 Active 43366296 Problem Chronic pain syndrome G89.4 Active 915347399 Problem Anemia, unspecified type D64.9 Activ e 802530328 Problem Depression, unspecified depression type F32.9 Active 35815923 Problem Other chronic pain G89.29 Active 8 6094763 Problem Iron deficiency anemia, unspecified iron deficiency an emia type D50.9 Active 53201167 Problem Insomnia, unspecified G47.00 Active 341025235 Problem Seasonal allergic rhinitis due to pollen J30.1 Active 97964641 Problem History of oral cancer Z85.819 Active 188340644 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 36 4816623 Problem Atrial fibrillation I48.91 Active 77516644 Problem Chronic obstructive pulmonary disease with (acute) exa cerbation J44.1 Active 364249279 Problem Rheumatoid arthritis M06.9 Active 56837145 Problem Dysthymia F34.1 Active 91675563 Problem Neuropathy G62.9 Active 994539615 Problem Rheumatoid arthritis with po sitive rheumatoid factor, involving unspecified site M05.9 Active 35020279 Problem Hemiplegia and hemiparesis f ollowing cerebral infarction affecting right dominant side I69.351 Active 061942928 Problem Cancer of neck C76.0 Active 63066 9000 ALLERGIES No Information ENCOUNTERS Encounter Location Date Diagnosis [place] [address] [address] November, [place] [address] [address] Aug, [place] [address] [place] [address] Aug, Chronic obstructive pulmonar y disease with (acute) exacerbation J44.1 [place] [address] [address] 12 Aug, 2019 [facility].93 ; Rheumatoid arthritis with positive rheumatoid factor, involving unspecified site M05.9 ; Chronic pain syndrome G89.4 ; Leg pain, left M79.605 and 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 [place] [address] [address] Aug, [place] [address] [address] Aug, 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 [place] [address] [address] 07 Aug, 2019 Chronic pain syndrome G89.4 [place] [address] [address] Jul, Primary insomnia F51.01 [place] [address] [address] Jul, Chronic pain syndrome G89.4 [place] [address] [address] Jul, [place] [address] [address] Jul, [place] [address] [address] Jul, Rheumatoid arthritis with positive rheum atoid factor, involving unspecified site M05.9 and Chronic pain syndrome G89.4 [place] [address] [address] Jul, [place] [address] [address] Jun, Rheumatoid arthritis with positive rheum atoid factor, involving unspecified site M05.9 [place] [address] [address] Jun, Chronic pain syndrome G89.4 ; Rheumatoid arthritis with positive rheumatoid factor, involving unspecified site M05.9 and Anxiety F41.9 [place] [address] [address] Jun, [place] [address] [address] Jun, Hemorrhoids, unspecified hemorrhoid type K64.9 [place] [address] [address] Jun, Hemorrhoids, unspecified hemorrhoid type K64.9 ; Cancer of neck C76.0 and Drug-induced constipation K59.03 [place] [address] [address] Jun, [place] [address] [address] Jun, [place] [address] [address] Jun, Rheumatoid arthritis with positive rheum atoid factor, involving unspecified site M05.9 [place] [address] [place] [address] [place] [address] May, [facility] [address] [place] [address] [place] [address] May, Rheumatoid arthritis with positive rheum atoid factor, involving unspecified site M05.9 [place] [address] [address] Apr, Primary insomnia F51.01 [place] [address] [address] Apr, Rheumatoid arthritis with positive rheum atoid factor, involving unspecified site M05.9 [place] [address] [place] [address] [place] [address] Mar, [place] [address] [address] Mar, [place] [address] [address] Mar, Rheumatoid arthritis with positive rheum atoid factor, involving unspecified site M05.9 ; Atrial fibrillation I48.91 ; Chronic pain syndrome G89.4 ; Iron deficiency anemia, unspecified iron deficiency anemia type D50.9 and Hemiplegia and hemiparesis following cerebral infarction affecting right dominant side I69.351 [place] [address] [address] Mar, Chronic pain syndrome G89.4 and Primary insomnia F51.01 [facility] [address] [address] Mar, Rheumatoid arthritis with positive rheum atoid factor, involving unspecified site M05.9 [facility] [address] [place] [id number] [place] [address] Feb, Rheumatoid arthritis with positive rheum atoid factor, involving unspecified site M05.9 ; Chronic pain syndrome G89.4 ; Atrial fibrillation I48.91 ; Iron deficiency anemia, unspecified iron deficiency anemia type D50.9 ; Hemiplegia and hemiparesis following cerebral infarction affecting right dominant side I69.351 and Primary insomnia F51.01 [facility] [address] [address] Feb, Chronic pain syndrome G89.4 [facility] [address] [address] Jan, Chronic pain syndrome G89.4 [facility] [address] [address] Jan, [facility] [address] [address] Jan, [facility] [address] [address] Dec, [facility] [address] [address] Dec, Chronic pain syndrome G89.4 [facility] [address] [address] Dec, [facility] [address] [address] November, Chronic pain syndrome G89.4 [facility] [address] [address] Oct, Chronic pain syndrome G89.4 [facility] [address] [address] Oct, [facility] [address] [address] Sep, Chronic pain syndrome G89.4 [facility] [address] [address] Sep, Leg pain, left M79.605 ; Right leg pain M79.604 and Reactive cervical nodes R59.0 [facility] [address] [address] Sep, [facility] [address] [place] [address] [place] [address] Sep, Neuropathy G62.9 [facility] [address] [id number] [place] [id number] Sep, [place] [address] [place] [address] [place] [address] Sep, Lymphadenopathy of left cervical region R59.0 [place] [address] [address] Sep, Lymphadenopathy of left cervical region R59.0 and Neuropathy G62.9 [place] [address] [address] Aug, Chronic pain syndrome G89.4 [place] [address] [address] Aug, [place] [address] [address] Aug, Peripheral vascular disease, unspecified I73.9 ; Other chronic pain G89.29 ; Chronic obstructive pulmon disease w acute lower resp infct J44.0 and Primary insomnia F51.01 [place] [address] [address] Aug, Chronic pain syndrome G89.4 [place] [address] [address] Jul, Chronic pain syndrome G89.4 [place] [address] [address] Jun, Chronic pain syndrome G89.4 [place] [address] [address] May, Chronic pain syndrome G89.4 [facility] [address] [facility] [id number] [place] [address] Apr, Cough R05 and Viral illness B34.9 [place] [address] [address] Apr, Encounter for immunization Z23 [facility] [address] [place] [id number] [place] [address] Apr, Chronic pain syndrome G89.4 [facility] [address] [facility] [id number] [address] [place] [address] 07 Apr, 2018 Left acute otitis media H66. 92 [facility] [address] [address] Mar, Rheumatoid arthritis M06.9 ; Other chron ic pain G89.29 ; History of oral cancer Z85.819 and History of tachycardia Z87.898 [facility] [address] [address] Mar, Chronic pain syndrome G89.4 [facility] [address] [address] Feb, Chronic pain syndrome G89.4 [facility] [address] [address] Feb, Chronic pain syndrome G89.4 [facility] [address] [address] Jan, Chronic pain syndrome G89.4 [facility] [address] [address] Jan, [facility] [address] [address] Dec, Chronic pain syndrome G89.4 [facility] [address] [address] November, Chronic pain syndrome G89.4 [facility] [address] [address] November, [facility] [address] [address] Oct, Chronic pain syndrome G89.4 [facility] [address] [address] Oct, [facility] [address] [place] [id number] [place] [address] Oct, Chronic pain syndrome G89.4 [facility] [address] [address] Oct, [facility] [address] [address] Oct, [facility] [address] [address] Sep, Left upper quadrant pain R10.12 ; Chroni c pain syndrome G89.4 ; Left lower quadrant pain R10.32 ; Other chronic pain G89.29 ; Sacrococcygeal disorders, not elsewhere classified M53.3 and Seasonal allergic rhinitis due to pollen J30.1 [facility] [address] [address] Sep, Chronic pain syndrome G89.4 [facility] [address] [address] Sep, [facility] [address] [address] Aug, Chronic pain syndrome G89.4 [facility] [address] [address] Aug, [facility] [address] [address] Aug, Insomnia, unspecified G47.00 [facility] [address] [address] Jul, [facility] [address] [address] Jul, [facility] [address] [address] Jul, Chronic pain syndrome G89.4 [facility] [address] [address] Jun, Chronic pain syndrome G89.4 [place] [address] [address] Jun, Chronic pain syndrome G89.4 [facility] [address] [address] May, [facility] [address] [address] May, Shortness of breath R06.02 ; Peripheral vascular disease, unspecified I73.9 ; Pain in right knee M25.561 ; Other chronic pain G89.29 ; Chest wall pain R07.89 ; Chronic pain syndrome G89.4 ; Primary insomnia F51.01 and Ear pain, left H92.02 [place] [address] [address] May, Anxiety F41.9 [place] [address] [address] Apr, Pneumonia due to infectious organism, un specified laterality, unspecified part of lung J18.9 ; Hypoxia R09.02 ; Bradycardia R00.1 ; History of Clostridium difficile Z87.19 and Primary insomnia F51.01 [place] [address] [address] Apr, Anxiety F41.9 [place] [address] [address] Apr, [place] [address] [address] Mar, Anxiety F41.9 [place] [address] [address] Feb, [place] [address] [address] Feb, [place] [address] [address] Feb, Abnormal finding on urinalysis R82.90 [place] [address] [address] Feb, [facility] [address] [address] Feb, Shortness of breath R06.02 ; Tachycardia R00.0 ; Cough R05 ; Ill feeling R68.89 and Abnormal finding on urinalysis R82.90 [facility] [address] [address] Feb, Anxiety F41.9 [facility] [address] [facility] [id number] [address] [place] [address] Feb, Sore throat J02.9 and Acute diffuse otitis externa of left ear H60.312 [place] [address] [address] Jan, [facility] [address] [address] Jan, [facility] [id number] [id number] Jan, [facility] [address] [address] Jan, Depression, unspecified depression type F32.9 ; Chronic bronchitis, unspecified chronic bronchitis type J42 ; Chronic pain syndrome G89.4 and Anxiety F41.9 [facility] [address] [address] Jan, [place] [address] [address] Jan, [place] [address] [address] Jan, [place] [id number] [id number] Jan, Chronic pain syndrome G89.4 [facility] [address] [place] [id number] Dec History of right knee surgery Z98.890 [place] [address] [address] Dec, [place] [address] [place] [address] [place] [address] Dec, Chronic pain syndrome G89.4 [place] [address] [place] [id number] [place] [address] November, Anxiety F41.9 [facility] [address] [facility] [id number] [address] [address] November, Acute cystitis without hemat uria N30.00 [facility] [address] [place] [id number] [address] November, Fever, unspecified fever cau se R50.9 and Acute cystitis without hematuria N30.00 [place] [address] [address] November, Chronic pain syndrome G89.4 [place] [address] [address] Oct, Anxiety F41.9 [place] [address] [address] Oct, Chronic pain syndrome G89.4 [place] [address] [address] Oct, Chronic pain syndrome G89.4 [place] [address] [address] Oct, [place] [address] [address] Oct, Chronic pain syndrome G89.4 ; Pain in ri ght knee M25.561 ; History of Clostridium difficile Z87.19 ; Iron deficiency anemia, unspecified iron deficiency anemia type D50.9 ; Peripheral vascular disease, unspecified I73.9 and Atrial fibrillation I48.91 [place] [address] [place] [address] [place] [address] Oct, [place] [address] [address] Oct, Chronic pain syndrome G89.4 [facility] [address] [place] [id number] [place] [address] Sep, [facility] [address] [address] Sep, Depression, unspecified depression type F32.9 ; Chronic bronchitis, unspecified chronic bronchitis type J42 ; Chronic pain syndrome G89.4 and Anxiety F41.9 [facility] [address] [place] [id number] Sep History of Clostridium difficile infection Z86.19 and History of stroke Z86.73 [facility] [address] [place] [id number] [facility] [id number] Sep, Anxiety F41.9 [facility] [address] [address] Sep, Chronic pain syndrome G89.4 [facility] [address] [address] Sep, [facility] [address] [place] [id number] [id number] Sep, [facility] [address] [address] Aug, Anxiety F41.9 [facility] [address] [address] Aug, Anxiety F41.9 [facility] [address] [address] Aug, [facility] [address] [address] 14 Aug, 2016 Acute knee pain, unspecified laterality M25.569 [facility] [address] [address] 13 Aug, 2016 [facility] [address] [address] 09 Aug, 2016 Chronic pain syndrome G89.4 [facility] [address] [facility] [place] [address] 08 Aug, 2016 [facility] [address] [place] [id number] [place] [address] Aug, [facility] [address] [place] [id number] [place] [address] Jul, [facility] [address] [place] [id number] [place] [address] Jul, Anxiety F41.9 [facility] [address] [place] [id number] [place] [address] Jul, Clostridium difficile diarrhea A04.7 [facility] [address] [place] [id number] Jul Clostridium difficile diarrhea A04.7 ; Chronic pain syndrome G89.4 ; Chronic obstructive pulmon disease w acute lower resp infct J44.0 and Pain in right knee M25.561 [facility] [address] [id number] [id number] Jul, [facility] [address] [facility] [id number] [address] [address] Jul, Anxiety F41.9 and Chronic pa in syndrome G89.4 [facility] [address] [place] [id number] [place] [address] Jun, Anxiety F41.9 [place] [address] [place] [id number] [place] [address] Jun, Rheumatoid arthritis 714.0 [facility] [address] [facility] [place] [address] Jun, Chronic pain syndrome G89.4 [place] [address] [place] [id number] [place] [address] Jun, [facility] [address] [place] [id number] [place] [address] Jun, [place] [address] [place] [address] [place] [address] Jun, History of pneumonia Z87.01 and History of Clostridium difficile Z87.19 [facility] [address] [address] Jun, [facility] [address] [address] May, [facility] [address] [address] May, Anxiety F41.9 [facility] [address] [address] May, Chronic pain syndrome G89.4 [place] [address] [address] May, Chronic bronchitis, unspecified chronic bronchitis type J42 [place] [address] [address] May, [place] [address] [address] May, C. difficile diarrhea A04.7 ; Peripheral edema R60.9 ; COPD (chronic obstructive pulmonary disease) J44.9 ; Rheumatoid arthritis, involving unspecified site, unspecified rheumatoid factor presence M06.9 ; Pain in right knee M25.561 ; Pain in left knee M25.562 and Other chronic pain G89.29 [place] [address] [address] May, [facility] [address] [address] May, [facility] [address] [address] May, Anxiety F41.9 [facility] [address] [address] Apr, [place] [address] [address] Apr, Chronic pain syndrome G89.4 [place] [address] [address] Apr, Leg pain, left M79.605 [place] [address] [address] 14 Apr, 2016 [place] [address] [address] Apr, [place] [address] [address] Apr, [place] [address] [address] Mar, Chronic pain syndrome G89.4 [place] [address] [address] Mar, Acute frontal sinusitis, recurrence not specified J01.10 [place] [address] [address] 20 Mar, 2016 Iron deficiency anemia, unspecified iron deficiency anemia type D50.9 ; Rheumatoid arthritis with positive rheumatoid factor, involving unspecified site M05.9 and Depression, unspecified depression type F32.9 [place] [address] [address] 13 Mar, 2016 Iron deficiency anemia, unspecified iron deficiency anemia type D50.9 ; Depression, unspecified depression type F32.9 and Rheumatoid arthritis with positive rheumatoid factor, involving unspecified site M05.9 [place] [address] [address] Mar, [place] [address] [address] Mar, [place] [address] [address] Feb, Chronic pain syndrome G89.4 [place] [address] [address] Feb, Status post partial amputation of left f oot Z89.432 ; Status post CVA Z86.73 ; Hemiplegia G81.90 and Anemia, unspecified type D64.9 [place] [address] [place] [address] [place] [address] Feb, [facility] [address] [address] Feb, Anemia, unspecified type D64.9 [place] [address] [place] [address] [place] [address] Feb, [facility] [address] [address] Feb, Iron deficiency anemia, unspecified iron deficiency anemia type D50.9 [place] [address] [address] Feb, [place] [address] [address] Feb, Chronic bronchitis, unspecified chronic bronchitis type J42 [place] [address] [address] Feb, Iron deficiency anemia, unspecified iron deficiency anemia type D50.9 [place] [address] [place] [address] [place] [address] Feb, Chronic pain syndrome G89.4 [place] [address] [address] Feb, Anemia, unspecified type D64.9 and Hypox ia R09.02 [place] [address] [address] Feb, Anemia, unspecified type D64.9 [place] [address] [place] [address] [address] [place] [address] Jan, [place] [address] [address] Jan, Anemia, unspecified type D64.9 [place] [address] [address] Jan, [facility] [address] [address] Jan, Anemia, unspecified type D64.9 [facility] [address] [address] Jan, Anemia, unspecified type D64.9 [facility] [address] [address] Jan, [facility] [address] [address] Jan, Anemia, unspecified type D64.9 [facility] [address] [address] Jan, [facility] [address] [address] Jan, [facility] [address] [address] Jan, Chronic pain syndrome G89.4 [facility] [address] [address] Jan, Anemia, unspecified type D64.9 [facility] [address] [address] Jan, Dysthymia F34.1 ; Cervicalgia M54.2 ; Fa tigue, unspecified type R53.83 and Depression, unspecified depression type F32.9 [place] [address] [address] Dec, [facility] [address] [address] Dec, Anxiety F41.9 [facility] [address] [address] Dec, Chronic pain syndrome G89.4 [facility] [address] [address] November, [facility] [address] [address] November, Edema R60.9 and Dizziness R42 [facility] [address] [id number] [place] [address] November, [facility] [address] [address] November, [facility] [address] [address] November, COPD (chronic obstructive pulmonary dise ase) J44.9 ; Increased tracheal secretions J39.[address] [facility] [address] [place] [address] Oct, [facility] [address] [address] Oct, Shortness of breath R06.02 a nd Edema R60.9 [place] [address] [address] Oct, Chronic bronchitis, unspecified chronic bronchitis type J42 ; Peripheral vascular disease, unspecified I73.9 ; Rheumatoid arthritis M06.9 and Atrial fibrillation I48.91 [facility] [address] [address] Oct, [place] [address] [address] Oct, [facility] [address] [address] Oct, [facility] [address] [address] Oct, [facility] [address] [place] [address] Oct, COPD exacerbation J44.1 [place] [address] [address] 28 Sep, 2015 [place] [address] [address] Sep, [facility] [address] [address] Sep, [place] [address] [address] Aug, [place] [address] [address] Aug, 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 and PVD (peripher al vascular disease) I73.9 [place] [address] [address] Aug, Bronchitis J40 ; COPD (chronic obstructi ve pulmonary disease) J44.9 and Dysthymia F34.1 [place] [address] [address] Aug, [place] [address] [address] Jul, [place] [address] [address] Jul, [place] [address] [address] Jul, [place] [address] [address] Jun, [place] [address] [address] Jun, [place] [address] [address] Jun, Peripheral vascular disease I73.9 [place] [address] [address] Jun, [place] [address] [address] Jun, [place] [address] [address] Jun, Leg pain, left M79.605 ; Dysphagia, unsp ecified dysphagia R13.10 ; Insomnia, unspecified type G47.00 ; PVD (peripheral vascular disease) I73.9 and Status post partial amputation of left foot Z89.432 [facility] [id number] [place] [address] May, [facility] [address] [id number] [place] [address] May, [facility] [id number] [place] [address] May, [facility] [id number] [place] [address] May, [facility] [id number] [place] [address] May, [facility] [id number] [place] [address] Apr, [facility] [id number] [place] [address] Apr, [facility] [address] [place] [address] Mar, [facility] [id number] [place] [address] Mar, [facility] [id number] [place] [address] Feb, [facility] [address] [address] Feb, Nicotine abuse 305.1 ; Arthralgia 719.40 and 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 [facility] [id number] [place] [address] Feb, [facility] [id number] [place] [address] Jan, [facility] [address] [place] [address] Jan, [facility] [address] [address] Jan, [facility] [id number] [place] [address] Jan, [facility] [id number] [place] [address] Jan, Status post CVA V12.54 ; Rheumatoid arth ritis 714.0 ; Hypertension 401.9 ; GERD (gastroesophageal reflux disease) 530.81 ; Nicotine addiction 305.1 and Leukocytosis 288.60 [facility] [id number] [place] [address] Jan, [facility] [id number] [place] [address] Jan, [facility] [id number] [place] [address] Jan, [facility] [id number] [place] [address] Jan, [facility] [id number] [place] [address] Jan, [facility] [id number] [place] [address] Dec, [facility] [id number] [place] [address] Dec, [facility] [id number] [place] [address] Dec, [facility] [id number] [place] [address] Dec, [facility] [id number] [place] [address] November, [facility] [id number] [place] [address] November, [facility] [id number] [place] [address] November, Shortness of breath 786.05 [facility] [id number] [place] [address] November, Rheumatoid arthritis 714.0 [facility] [id number] [place] [address] November, 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 [facility] [address] [address] November, Neuropathy 355.9 ; Insomnia 780.52 ; Dys thymia 300.4 ; Shortness of breath 786.05 ; Rheumatoid arthritis 714.0 and Nausea 787.02 [facility] [address] [address] November, [facility] [address] [address] November, [facility] [address] [address] Oct, [facility] [address] [address] Oct, [facility] [address] [address] Oct, [facility] [address] [address] Oct, [facility] [address] [address] Sep, [facility] [address] [address] Sep, [facility] [address] [address] Sep, [facility] [id number] [place] [address] Sep, [facility] [address] [address] Sep, [facility] [address] [address] Sep, [facility] [address] [address] Sep, [facility] [address] [place] [address] Sep, [facility] [place] [facility] [address] [facility] [id number] [place] [address] Aug, [facility] [place] [facility] [address] [id number] [place] [address] Aug, [facility] [place] [facility] [address] [id number] [place] [address] Aug, [facility] [place] [facility] [address] [id number] [place] [address] Aug, [facility] [place] [facility] [address] [id number] [place] [address] Aug, [facility] [place] [facility] [address] [id number] [place] [address] Aug, [facility] [place] [facility] [address] [id number] [place] [address] Jul, [facility] [place] [facility] [address] [id number] [place] [address] Jul, [facility] [place] [facility] [address] [id number] [place] [address] Jul, [facility] [place] [facility] [address] [id number] [place] [address] Jul, [facility] [place] [facility] [address] [id number] [place] [address] Jul, [facility] [place] [facility] [address] [id number] [place] [address] Jul, [facility] [place] [facility] [address] [id number] [place] [address] Jul, [facility] [place] [facility] [address] [id number] [place] [address] Jul, [facility] [place] [facility] [address] [id number] [place] [address] Jul, [facility] [place] [facility] [address] [id number] [place] [address] Jul, [facility] [place] [facility] [address] [id number] [place] [address] Jun, [facility] [place] [facility] [address] [id number] [place] [address] Jun, [facility] [place] [facility] [address] [id number] [place] [address] Jun, [facility] [place] [facility] [address] [id number] [place] [address] Jun, [facility] [place] [facility] [address] [id number] [place] [address] Jun, [facility] [place] [facility] [address] [id number] [place] [address] Jun, [facility] [place] [facility] [address] [id number] [place] [address] Jun, [facility] [place] [facility] [address] [id number] [place] [address] Jun, [facility] [place] [facility] [address] [id number] [place] [address] Jun, [facility] [place] [facility] [address] [id number] [place] [address] Jun, [facility] [place] [facility] [address] [id number] [place] [address] Jun, [facility] [place] [facility] [address] [id number] [place] [address] Jun, [facility] [place] [facility] [address] [id number] [place] [address] Jun, [facility] [place] [facility] [address] [id number] [place] [address] Jun, [facility] [place] [facility] [address] [id number] [place] [address] Jun, [facility] [place] [facility] [address] [id number] [place] [address] Jun, [facility] [place] [facility] [address] [id number] [place] [address] May, [facility] [place] [facility] [address] [id number] [place] [address] May, [facility] [place] [facility] [address] [id number] [place] [address] May, [facility] [place] [facility] [address] [id number] [place] [address] May, [facility] [place] [facility] [address] [id number] [place] [address] May, [facility] [place] [facility] [address] [id number] [place] [address] May, [facility] [place] [facility] [address] [id number] [place] [address] May, [facility] [place] [facility] [address] [id number] [place] [address] May, [facility] [place] [facility] [address] [id number] [place] [address] May, [facility] [place] [facility] [address] [id number] [place] [address] Apr, [facility] [place] [facility] [address] [id number] [place] [address] Apr, [facility] [place] [facility] [address] [id number] [place] [address] Apr, [facility] [place] [facility] [address] [id number] [place] [address] Apr, [facility] [place] [facility] [address] [id number] [place] [address] Apr, [facility] [place] [facility] [address] [id number] [place] [address] Apr, [facility] [place] [facility] [address] [id number] [place] [address] Apr, [facility] [place] [facility] [address] [id number] [place] [address] Apr, [facility] [place] [facility] [address] [id number] [place] [address] 07 Apr, 2013 [facility] [place] [facility] [address] [id number] [place] [address] Apr, 2013 [facility] [place] [facility] [address] [facility] [id number] [place] [address] Apr, [facility] [place] [facility] [address] [facility] [id number] [place] [address] Apr, [facility] [place] [facility] [address] [facility] [id number] [place] [address] Mar, 2013 [facility] [place] [facility] [address] [facility] [id number] [place] [address] Mar, 2013 [facility] [place] [facility] [address] [id number] [place] [address] Mar, 2013 [facility] [place] [facility] [address] [id number] [place] [address] Mar, 2013 [facility] [place] [facility] [address] [id number] [place] [address] Mar, 2013 [facility] [place] [facility] [address] [facility] [id number] [place] [address] Mar, 2013 [facility] [place] [facility] [address] [id number] [place] [address] Mar, 2013 [facility] [place] [facility] [address] [id number] [place] [address] Mar, 2013 [facility] [place] [facility] [address] [id number] [place] [address] Mar, 2013 [facility] [place] [facility] [address] [facility] [id number] [place] [address] Mar, 2013 [facility] [place] [facility] [address] [id number] [place] [address] Feb, [facility] [place] [facility] [address] [id number] [place] [address] Feb, [facility] [place] [facility] [address] [id number] [place] [address] Feb, [facility] [place] [facility] [address] [id number] [place] [address] Feb, [facility] [place] [facility] [address] [facility] [id number] [place] [address] Feb, [facility] [place] [facility] [address] [facility] [id number] [place] [address] Feb, [facility] [place] [facility] [address] [id number] [place] [address] Feb, [facility] [place] [facility] [address] [facility] [id number] [place] [address] Feb, [facility] [place] [facility] [address] [id number] [place] [address] Feb, [facility] [place] [facility] [address] [id number] [place] [address] Feb, [facility] [place] [facility] [address] [id number] [place] [address] Feb, [facility] [place] [facility] [address] [facility] [id number] [place] [address] Feb, [facility] [place] [facility] [address] [id number] [place] [address] Feb, [facility] [place] [facility] [address] [id number] [place] [address] Feb, [facility] [place] [facility] [address] [id number] [place] [address] Feb, [facility] [place] [facility] [address] [facility] [id number] [place] [address] Feb, [facility] [place] [facility] [address] [id number] [place] [address] Jan, [facility] [place] [facility] [address] [facility] [id number] [place] [address] Jan, [facility] [place] [facility] [address] [facility] [id number] [place] [address] Jan, [facility] [place] [facility] [address] [facility] [id number] [place] [address] Jan, [facility] [place] [facility] [address] [facility] [id number] [place] [address] Jan, [facility] [place] [facility] [address] [facility] [id number] [place] [address] Jan, [facility] [place] [facility] [address] [id number] [place] [address] Dec, [facility] [place] [facility] [address] [facility] [id number] [place] [address] Dec, [facility] [place] [facility] [address] [facility] [id number] [place] [address] Dec, [facility] [place] [facility] [address] [id number] [place] [address] Dec, [facility] [place] [facility] [address] [id number] [place] [address] Dec, [facility] [place] [facility] [address] [id number] [place] [address] Dec, [facility] [place] [facility] [address] [id number] [place] [address] Dec, [facility] [place] [facility] [address] [id number] [place] [address] Dec, [facility] [place] [facility] [address] [id number] [place] [address] November, [facility] [place] [facility] [address] [id number] [place] [address] November, [facility] [place] [facility] [address] [id number] [place] [address] November, [facility] [place] [facility] [address] [id number] [place] [address] November, [facility] [place] [facility] [address] [id number] [place] [address] November, [facility] [place] [facility] [address] [id number] [place] [address] November, [facility] [place] [facility] [address] [id number] [place] [address] 29 Oct, 2013 [facility] [place] [facility] [address] [facility] [id number] [place] [address] Oct, [facility] [place] [facility] [address] [id number] [place] [address] Oct, [facility] [place] [facility] [address] [id number] [place] [address] Oct, [facility] [place] [facility] [address] [id number] [place] [address] Sep, [facility] [place] [facility] [address] [id number] [place] [address] Sep, [facility] [place] [facility] [address] [id number] [place] [address] Sep, [facility] [place] [facility] [address] [id number] [place] [address] Sep, [facility] [place] [facility] [address] [id number] [place] [address] Sep, [facility] [place] [facility] [address] [id number] [place] [address] Sep, [facility] [place] [facility] [address] [id number] [place] [address] Aug, [facility] [place] [facility] [address] [id number] [place] [address] Aug, [facility] [place] [facility] [address] [id number] [place] [address] Aug, [facility] [place] [facility] [address] [id number] [place] [address] Aug, [facility] [place] [facility] [address] [id number] [place] [address] 10 Aug, 2013 [facility] [place] [facility] [address] [id number] [place] [address] 10 Aug, 2013 [facility] [place] [facility] [address] [id number] [place] [address] Jul, [facility] [place] [facility] [address] [facility] [id number] [place] [address] Jul, [facility] [place] [facility] [address] [facility] [id number] [place] [address] Jul, [facility] [place] [facility] [address] [id number] [place] [address] Jul, [facility] [place] [facility] [address] [id number] [place] [address] Jul, [facility] [place] [facility] [address] [facility] [id number] [place] [address] Jul, [facility] [place] [facility] [address] [id number] [place] [address] Jul, [facility] [place] [facility] [address] [id number] [place] [address] Jul, [facility] [place] [facility] [address] [id number] [place] [address] Jul, [facility] [place] [facility] [address] [id number] [place] [address] Jul, [facility] [place] [facility] [address] [id number] [place] [address] Jul, [facility] [place] [facility] [address] [id number] [place] [address] Jul, [facility] [place] [facility] [address] [id number] [place] [address] Jul, [facility] [place] [facility] [address] [facility] [id number] [place] [address] Jul, [facility] [place] [facility] [address] [id number] [place] [address] Jul, [facility] [place] [facility] [address] [id number] [place] [address] Jun, [facility] [place] [facility] [address] [id number] [place] [address] Jun, [facility] [place] [facility] [id number] [place] [address] Jun, [facility] [id number] [place] [address] Jun, [facility] [id number] [place] [address] May, [facility] [id number] [place] [address] May, [place] [id number] [id number] May, [facility] [id number] [place] [address] May, [facility] [id number] [place] [address] May, [facility] [id number] [place] [address] May, [facility] [id number] [place] [address] May, [facility] [id number] [place] [address] May, [facility] [id number] [place] [address] May, [id number] [id number] May, [facility] [id number] [place] [address] May, [id number] [id number] May, [facility] [id number] [place] [address] May, [id number] [place] [id number] May, [facility] [id number] [place] [address] May, IMMUNIZATIONS No Known Immunizations SOCIAL HISTORY [...] Diarrhea, leukocytosis--ryan[facility] 01/08/16 Hospitalization History pseudomemranous colitis, sepsis--[facility] 04/21/2016 Hospitalization History C Diff--[facility] 05/10/2016 Hospitalization History sepsis, pneumonia, diarrhea--[facility] Hospitalization History recurrent cdiff, pneumonia-[facility] Hospitalization History sepsis,pneumonia- [facility] 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
--- OUTSIDE RECORDS SUMMARY | 2019-11-07 10:21 | XMS REPORT ---
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 737933546 Problem History of cerebrovascular accident with current residual effects I69.90 Active 793404435 Problem Hypertension I10 Active 2466248 3 Problem Osteoarthritis of foot M19.079 Active 498538099 Problem Chronic obstructive pulmon disease w acute lower resp infc t J44.0 Active 964371933 Problem History of arthroplasty of right knee Z96.651 Active 986417758 Problem Other chronic pain G89.29 Active 8 2207671 Problem Status post partial amputation of left foot Z89.43 2 Active 846112250 Problem Hx of Clostridium difficile infection Z86.19 Active 806128590 Problem Tobacco abuse, 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 Ac tive 198858955 Problem Dysthymia F34.1 Active 79534437 Problem Chronic pain syndrome G89.4 Active 198084133 Problem Edema R60.9 Active 444539243 Problem Depression, unspecified depression type F32.9 Active 84853953 Problem Anxiety F41.9 Active 66209919 Problem Iron deficiency anemia, unspecified iron deficiency an emia type D50.9 Active 20053050 Problem Anemia, unspecified type D64.9 Activ e 585799464 Problem Primary insomnia F51.01 Active 397 2004 Problem Insomnia, unspecified G47.00 Active 754497409 Problem Seasonal allergic rhinitis due to pollen J30.1 Active 15982686 Problem Cancer of neck C76.0 Active 53509 9000 Problem Rheumatoid arthritis M06.9 Active 31598268 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 36 8706072 Problem COPD (chronic obstructive pulmonary disease) J44.9 Active 66263861 Problem Atrial fibrillation I48.91 Active 23377652 Problem History of oral cancer Z85.819 Active 442484685 Problem Neuropathy G62.9 Active 790087082 Problem Rheumatoid arthritis with po sitive rheumatoid factor, involving unspecified site M05.9 Active 63106624 Problem Hemiplegia and hemiparesis f ollowing cerebral infarction affecting right dominant side I69.351 Active 515543514 ALLERGIES No Information ENCOUNTERS Encounter Location Date Diagnosis [place] [address] [address] November, [place] [address] [place] [address] Aug, [place] [address] [address] 12 Aug, 2019 Single subsegmental pulmonary embolism w [facility] acute cor pulmonale I26.93 ; Rheumatoid arthritis with positive rheumatoid factor, involving unspecified site M05.9 ; Chronic pain syndrome G89.4 ; Leg pain, left M79.605 and 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 [place] [address] [address] Aug, [place] [address] [address] Aug, 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 [place] [address] [address] 07 Aug, 2019 Chronic pain syndrome G89.4 [place] [address] [address] Jul, Primary insomnia F51.01 [place] [address] [address] Jul, Chronic pain syndrome G89.4 [place] [address] [address] Jul, [facility] [id number] [place] [address] Jul, [facility] [id number] [place] [address] Jul, Rheumatoid arthritis with positive rheum atoid factor, involving unspecified site M05.9 and Chronic pain syndrome G89.4 [facility] [id number] [place] [address] Jul, [facility] [address] [place] [id number] [place] [address] Jun, Rheumatoid arthritis with positive rheum atoid factor, involving unspecified site M05.9 [place] [id number] [place] [address] Jun, Chronic pain syndrome G89.4 ; Rheumatoid arthritis with positive rheumatoid factor, involving unspecified site M05.9 and Anxiety F41.9 [facility] [id number] [place] [address] Jun, [facility] [address] [id number] [place] [address] Jun, Hemorrhoids, unspecified hemorrhoid type K64.9 [place] [id number] [place] [address] Jun, Hemorrhoids, unspecified hemorrhoid type K64.9 ; Cancer of neck C76.0 and Drug-induced constipation K59.03 [facility] [id number] [place] [address] Jun, [facility] [address] [id number] [place] [address] Jun, [facility] [address] [id number] [place] [address] Jun, Rheumatoid arthritis with positive rheum atoid factor, involving unspecified site M05.9 [facility] [id number] [place] [address] May, [facility] [address] [address] May, Rheumatoid arthritis with positive rheum atoid factor, involving unspecified site M05.9 [place] [address] [address] Apr, Primary insomnia F51.01 [place] [address] [address] Apr, Rheumatoid arthritis with positive rheum atoid factor, involving unspecified site M05.9 [place] [address] [address] Mar, [place] [address] [address] Mar, [place] [address] [address] Mar, Rheumatoid arthritis with positive rheum atoid factor, involving unspecified site M05.9 ; Atrial fibrillation I48.91 ; Chronic pain syndrome G89.4 ; Iron deficiency anemia, unspecified iron deficiency anemia type D50.9 and Hemiplegia and hemiparesis following cerebral infarction affecting right dominant side I69.351 [place] [address] [address] Mar, Chronic pain syndrome G89.4 and Primary insomnia F51.01 [place] [address] [address] Mar, Rheumatoid arthritis with positive rheum atoid factor, involving unspecified site M05.9 [place] [address] [address] Feb, Rheumatoid arthritis with positive rheum atoid factor, involving unspecified site M05.9 ; Chronic pain syndrome G89.4 ; Atrial fibrillation I48.91 ; Iron deficiency anemia, unspecified iron deficiency anemia type D50.9 ; Hemiplegia and hemiparesis following cerebral infarction affecting right dominant side I69.351 and Primary insomnia F51.01 [place] [address] [address] Feb, Chronic pain syndrome G89.4 [facility] [id number] [place] [address] Jan, Chronic pain syndrome G89.4 [facility] [id number] [place] [address] Jan, [facility] [id number] [place] [address] Jan, [facility] [id number] [place] [address] Dec, [facility] [id number] [place] [address] Dec, Chronic pain syndrome G89.4 [facility] [id number] [place] [address] Dec, [facility] [id number] [place] [address] November, Chronic pain syndrome G89.4 [facility] [id number] [place] [address] Oct, Chronic pain syndrome G89.4 [facility] [id number] [place] [address] Oct, [facility] [id number] [place] [address] Sep, Chronic pain syndrome G89.4 [facility] [id number] [place] [address] Sep, Leg pain, left M79.605 ; Right leg pain M79.604 and Reactive cervical nodes R59.0 [facility] [id number] [place] [address] Sep, [facility] [address] [place] [address] [id number] [place] [address] Sep, Neuropathy G62.9 [facility] [address] [facility] [id number] Sep, [facility] [address] [address] Sep, Lymphadenopathy of left cervical region R59.0 [place] [address] [address] Sep, Lymphadenopathy of left cervical region R59.0 and Neuropathy G62.9 [place] [address] [address] Aug, Chronic pain syndrome G89.4 [place] [address] [address] Aug, [place] [address] [address] Aug, Peripheral vascular disease, unspecified I73.9 ; Other chronic pain G89.29 ; Chronic obstructive pulmon disease w acute lower resp infct J44.0 and Primary insomnia F51.01 [place] [address] [address] Aug, Chronic pain syndrome G89.4 [place] [address] [address] Jul, Chronic pain syndrome G89.4 [place] [address] [address] Jun, Chronic pain syndrome G89.4 [place] [address] [address] May, Chronic pain syndrome G89.4 [facility] [address] [place] [id number] [place] [address] Apr, Cough R05 and Viral illness B34.9 [place] [address] [address] Apr, Encounter for immunization Z23 [place] [address] [address] Apr, Chronic pain syndrome G89.4 [facility] [address] [facility] [id number] [address] [place] [address] 07 Apr, 2018 Left acute otitis media H66. 92 [facility] [address] [address] 26 Mar, 2018 Rheumatoid arthritis M06.9 ; Other chron ic pain G89.29 ; History of oral cancer Z85.819 and History of tachycardia Z87.898 [facility] [address] [address] 14 Mar, 2018 Chronic pain syndrome G89.4 [facility] [address] [address] Feb, Chronic pain syndrome G89.4 [facility] [address] [address] Feb, Chronic pain syndrome G89.4 [facility] [address] [address] Jan, Chronic pain syndrome G89.4 [facility] [address] [address] Jan, [facility] [address] [address] Dec, Chronic pain syndrome G89.4 [facility] [address] [address] November, Chronic pain syndrome G89.4 [facility] [address] [address] November, [facility] [address] [address] Oct, Chronic pain syndrome G89.4 [facility] [address] [address] Oct, [facility] [address] [address] Oct, Chronic pain syndrome G89.4 [facility] [address] [address] Oct, [facility] [address] [address] Oct, [facility] [address] [address] Sep, Left upper quadrant pain R10.12 ; Chroni c pain syndrome G89.4 ; Left lower quadrant pain R10.32 ; Other chronic pain G89.29 ; Sacrococcygeal disorders, not elsewhere classified M53.3 and Seasonal allergic rhinitis due to pollen J30.1 [facility] [address] [address] Sep, Chronic pain syndrome G89.4 [facility] [address] [address] Sep, [facility] [address] [address] Aug, Chronic pain syndrome G89.4 [facility] [address] [address] Aug, [facility] [address] [address] Aug, Insomnia, unspecified G47.00 [facility] [address] [address] Jul, [facility] [address] [address] Jul, [facility] [address] [address] Jul, Chronic pain syndrome G89.4 [facility] [address] [address] Jun, Chronic pain syndrome G89.4 [facility] [address] [address] Jun, Chronic pain syndrome G89.4 [facility] [address] [address] May, [place] [address] [address] May, Shortness of breath R06.02 ; Peripheral vascular disease, unspecified I73.9 ; Pain in right knee M25.561 ; Other chronic pain G89.29 ; Chest wall pain R07.89 ; Chronic pain syndrome G89.4 ; Primary insomnia F51.01 and Ear pain, left H92.02 [place] [address] [address] May, Anxiety F41.9 [place] [address] [address] Apr, Pneumonia due to infectious organism, un specified laterality, unspecified part of lung J18.9 ; Hypoxia R09.02 ; Bradycardia R00.1 ; History of Clostridium difficile Z87.19 and Primary insomnia F51.01 [place] [address] [address] Apr, Anxiety F41.9 [place] [address] [address] Apr, [place] [address] [address] Mar, Anxiety F41.9 [place] [address] [address] Feb, [place] [address] [address] Feb, [place] [address] [address] Feb, Abnormal finding on urinalysis R82.90 [place] [address] [address] Feb, [place] [address] [address] Feb, Shortness of breath R06.02 ; Tachycardia R00.0 ; Cough R05 ; Ill feeling R68.89 and Abnormal finding on urinalysis R82.90 [facility] [address] [id number] [place] [address] Feb, Anxiety F41.9 [facility] [address] [facility] [id number] [address] [place] [address] Feb, Sore throat J02.9 and Acute diffuse otitis externa of left ear H60.312 [facility] [address] [address] Jan, [facility] [address] [address] Jan, [facility] [address] [id number] [id number] Jan, [facility] [address] [address] Jan, Depression, unspecified depression type F32.9 ; Chronic bronchitis, unspecified chronic bronchitis type J42 ; Chronic pain syndrome G89.4 and Anxiety F41.9 [facility] [address] [id number] [place] [address] Jan, [facility] [address] [address] Jan, [facility] [address] [address] Jan, [facility] [address] [id number] [id number] Jan, Chronic pain syndrome G89.4 [facility] [address] [place] [id number] Dec History of right knee surgery Z98.890 [facility] [address] [address] Dec, [facility] [address] [address] Dec, Chronic pain syndrome G89.4 [facility] [address] [address] November, Anxiety F41.9 [facility] [address] [facility] [id number] [place] [address] November, Acute cystitis without hemat uria N30.00 [facility] [address] [facility] [id number] [place] [address] November, Fever, unspecified fever cau se R50.9 and Acute cystitis without hematuria N30.00 [place] [address] [address] November, Chronic pain syndrome G89.4 [place] [address] [address] Oct, Anxiety F41.9 [place] [address] [address] Oct, Chronic pain syndrome G89.4 [place] [address] [address] Oct, Chronic pain syndrome G89.4 [place] [address] [address] Oct, [place] [address] [address] Oct, Chronic pain syndrome G89.4 ; Pain in ri ght knee M25.561 ; History of Clostridium difficile Z87.19 ; Iron deficiency anemia, unspecified iron deficiency anemia type D50.9 ; Peripheral vascular disease, unspecified I73.9 and Atrial fibrillation I48.91 [place] [address] [address] Oct, [place] [address] [address] Oct, Chronic pain syndrome G89.4 [place] [address] [address] Sep, [place] [address] [address] Sep, Depression, unspecified depression type F32.9 ; Chronic bronchitis, unspecified chronic bronchitis type J42 ; Chronic pain syndrome G89.4 and Anxiety F41.9 [facility] [address] [place] [id number] Sep History of Clostridium difficile infection Z86.19 and History of stroke Z86.73 [facility] [id number] [place] [id number] Sep, Anxiety F41.9 [facility] [address] [address] Sep, Chronic pain syndrome G89.4 [facility] [address] [address] Sep, [facility] [address] [id number] [id number] Sep, [facility] [address] [address] Aug, Anxiety F41.9 [facility] [address] [address] Aug, Anxiety F41.9 [facility] [address] [address] 16 Aug, 2016 [facility] [address] [address] 14 Aug, 2016 Acute knee pain, unspecified laterality M25.569 [facility] [address] [address] 13 Aug, 2016 [facility] [address] [address] 09 Aug, 2016 Chronic pain syndrome G89.4 [facility] [address] [place] [id number] [place] [address] 08 Aug, 2016 [facility] [address] [address] Aug, [facility] [id number] [place] [address] Jul, [facility] [id number] [place] [address] Jul, Anxiety F41.9 [facility] [id number] [place] [address] Jul, Clostridium difficile diarrhea A04.7 [facility] [address] [place] [id number] Jul Clostridium difficile diarrhea A04.7 ; Chronic pain syndrome G89.4 ; Chronic obstructive pulmon disease w acute lower resp infct J44.0 and Pain in right knee M25.561 [facility] [address] [id number] [id number] Jul, [facility] [address] [facility] [id number] [place] [address] Jul, Anxiety F41.9 and Chronic pa in syndrome G89.4 [place] [address] [id number] [place] [address] Jun, Anxiety F41.9 [facility] [id number] [place] [address] Jun, Rheumatoid arthritis 714.0 [place] [id number] [place] [address] Jun, Chronic pain syndrome G89.4 [place] [id number] [place] [address] Jun, [facility] [id number] [place] [address] Jun, [facility] [id number] [place] [address] Jun, History of pneumonia Z87.01 and History of Clostridium difficile Z87.19 [place] [id number] [place] [address] 06 Jun, 2016 [facility] [id number] [place] [address] May, [facility] [address] [address] May, Anxiety F41.9 [facility] [address] [address] May, Chronic pain syndrome G89.4 [facility] [address] [address] May, Chronic bronchitis, unspecified chronic bronchitis type J42 [facility] [address] [address] May, [place] [address] [address] May, C. difficile diarrhea A04.7 ; Peripheral edema R60.9 ; COPD (chronic obstructive pulmonary disease) J44.9 ; Rheumatoid arthritis, involving unspecified site, unspecified rheumatoid factor presence M06.9 ; Pain in right knee M25.561 ; Pain in left knee M25.562 and Other chronic pain G89.29 [facility] [address] [address] May, [facility] [address] [address] May, [facility] [address] [address] May, Anxiety F41.9 [facility] [address] [address] Apr, [facility] [address] [address] Apr, Chronic pain syndrome G89.4 [facility] [address] [address] Apr, Leg pain, left M79.605 [facility] [address] [address] Apr, [facility] [address] [address] Apr, [place] [address] [address] Apr, [place] [address] [address] Mar, Chronic pain syndrome G89.4 [place] [address] [address] Mar, Acute frontal sinusitis, recurrence not specified J01.10 [place] [address] [address] 20 Mar, 2016 Iron deficiency anemia, unspecified iron deficiency anemia type D50.9 ; Rheumatoid arthritis with positive rheumatoid factor, involving unspecified site M05.9 and Depression, unspecified depression type F32.9 [place] [address] [address] Mar, Iron deficiency anemia, unspecified iron deficiency anemia type D50.9 ; Depression, unspecified depression type F32.9 and Rheumatoid arthritis with positive rheumatoid factor, involving unspecified site M05.9 [place] [address] [address] Mar, [place] [address] [address] Mar, [place] [address] [address] Feb, Chronic pain syndrome G89.4 [place] [address] [address] Feb, Status post partial amputation of left f oot Z89.432 ; Status post CVA Z86.73 ; Hemiplegia G81.90 and Anemia, unspecified type D64.9 [place] [id number] [place] [address] Feb, [place] [address] [address] Feb, Anemia, unspecified type D64.9 [facility] [id number] [place] [address] Feb, [facility] [address] [address] Feb, Iron deficiency anemia, unspecified iron deficiency anemia type D50.9 [facility] [address] [address] Feb, [facility] [address] [address] Feb, Chronic bronchitis, unspecified chronic bronchitis type J42 [facility] [address] [address] Feb, Iron deficiency anemia, unspecified iron deficiency anemia type D50.9 [place] [address] [address] Feb, Chronic pain syndrome G89.4 [place] [address] [address] Feb, Anemia, unspecified type D64.9 and Hypox ia R09.02 [facility] [address] [address] Feb, Anemia, unspecified type D64.9 [place] [address] [address] Jan, [place] [address] [address] Jan, Anemia, unspecified type D64.9 [facility] [id number] [place] [address] Jan, [facility] [address] [address] Jan, Anemia, unspecified type D64.9 [facility] [address] [address] Jan, Anemia, unspecified type D64.9 [facility] [address] [place] [address] Jan, [facility] [address] [address] Jan, Anemia, unspecified type D64.9 [facility] [id number] [place] [address] Jan, [facility] [address] [address] Jan, [facility] [address] [address] Jan, Chronic pain syndrome G89.4 [facility] [address] [address] Jan, Anemia, unspecified type D64.9 [facility] [address] [place] [address] Jan, Dysthymia F34.1 ; Cervicalgia M54.2 ; Fa tigue, unspecified type R53.83 and Depression, unspecified depression type F32.9 [facility] [id number] [place] [address] Dec, [facility] [address] [address] Dec, Anxiety F41.9 [facility] [address] [address] Dec, Chronic pain syndrome G89.4 [facility] [id number] [place] [address] November, [facility] [address] [address] November, Edema R60.9 and Dizziness R42 [facility] [id number] [place] [address] November, [facility] [address] [address] November, [facility] [address] [place] [address] November, COPD (chronic obstructive pulmonary dise ase) J44.9 ; Increased tracheal secretions J39.8 and Edema R60.9 [facility] [address] [facility] [id number] [place] [address] 29 Oct, 2015 [facility] [address] [facility] [id number] [place] [address] 28 Oct, 2015 Shortness of breath R06.02 a nd Edema R60.9 [facility] [address] [address] 20 Oct, 2015 Chronic bronchitis, unspecified chronic bronchitis type J42 ; Peripheral vascular disease, unspecified I73.9 ; Rheumatoid arthritis M06.9 and Atrial fibrillation I48.91 [facility] [address] [address] Oct, [facility] [address] [address] Oct, [facility] [address] [address] Oct, [place] [address] [address] Oct, [facility] [address] [place] [place] [id number] [address] [place] [address] Oct, COPD exacerbation J44.1 [place] [address] [address] Sep, [place] [address] [address] Sep, [place] [address] [address] Sep, [place] [address] [address] Aug, [place] [address] [address] Aug, Status post CVA V12.54 and PVD (peripher al vascular disease) I73.9 [place] [address] [address] Aug, Bronchitis J40 ; COPD (chronic obstructi ve pulmonary disease) J44.9 and Dysthymia F34.1 [place] [address] [address] Aug, [place] [address] [address] Jul, [place] [address] [address] Jul, [place] [address] [address] Jul, [place] [address] [address] Jun, [place] [address] [address] Jun, [place] [address] [address] Jun, Peripheral vascular disease I73.9 [place] [address] [address] Jun, [place] [address] [address] Jun, [place] [address] [address] Jun, Leg pain, left M79.605 ; Dysphagia, unsp ecified dysphagia R13.10 ; Insomnia, unspecified type G47.00 ; PVD (peripheral vascular disease) I73.9 and Status post partial amputation of left foot Z89.432 [place] [address] [address] May, [place] [address] [address] May, [facility] [id number] [place] [address] May, [facility] [id number] [place] [address] May, [facility] [id number] [place] [address] May, [facility] [id number] [place] [address] Apr, [facility] [id number] [place] [address] Apr, [facility] [id number] [place] [address] Mar, [facility] [id number] [place] [address] Mar, [facility] [id number] [place] [address] Feb, [facility] [id number] [place] [address] Feb, Nicotine abuse 305.1 ; Arthralgia 719.40 and Status post CVA V12.54 [facility] [id number] [place] [address] Feb, [facility] [id number] [place] [address] Jan, [facility] [id number] [place] [address] Jan, [facility] [id number] [place] [address] Jan, [facility] [id number] [place] [address] Jan, [facility] [id number] [place] [address] Jan, Status post CVA V12.54 ; Rheumatoid arth ritis 714.0 ; Hypertension 401.9 ; GERD (gastroesophageal reflux disease) 530.81 ; Nicotine addiction 305.1 and Leukocytosis 288.60 [facility] [address] [address] Jan, [facility] [address] [address] Jan, [facility] [address] [address] Jan, [facility] [address] [address] Jan, [facility] [address] [address] Jan, [facility] [address] [address] Dec, [facility] [address] [address] Dec, [facility] [address] [address] Dec, [facility] [address] [address] Dec, [facility] [address] [address] November, [facility] [address] [address] November, [facility] [address] [address] November, Shortness of breath 786.05 [facility] [address] [address] November, Rheumatoid arthritis 714.0 [facility] [address] [address] November, 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 [facility] [address] [address] November, Neuropathy 355.9 ; Insomnia 780.52 ; Dys thymia 300.4 ; Shortness of breath 786.05 ; Rheumatoid arthritis 714.0 and Nausea 787.02 [facility] [id number] [place] [address] November, [facility] [id number] [place] [address] November, [facility] [address] [address] Oct, [facility] [address] [address] Oct, [facility] [address] [address] Oct, [facility] [address] [address] Oct, [facility] [address] [address] Sep, [facility] [address] [address] Sep, [facility] [address] [address] Sep, [facility] [address] [address] Sep, [facility] [address] [address] Sep, [facility] [id number] [place] [address] Sep, [facility] [id number] [place] [address] Sep, [facility] [address] [address] Sep, [facility] [id number] [place] [address] Aug, [facility] [address] [address] Aug, [facility] [address] [id number] [place] [address] Aug, [facility] [address] [id number] [place] [address] Aug, [facility] [address] [id number] [place] [address] Aug, [facility] [address] [id number] [place] [address] Aug, [facility] [address] [id number] [place] [address] Jul, [facility] [address] [id number] [place] [address] Jul, [facility] [address] [id number] [place] [address] Jul, [facility] [address] [id number] [place] [address] Jul, [facility] [address] [id number] [place] [address] Jul, [facility] [address] [id number] [place] [address] Jul, [facility] [address] [id number] [place] [address] Jul, [facility] [address] [id number] [place] [address] Jul, [facility] [address] [id number] [place] [address] Jul, [facility] [address] [id number] [place] [address] Jul, [facility] [address] [id number] [place] [address] Jun, [facility] [address] [id number] [place] [address] Jun, [facility] [address] [id number] [place] [address] Jun, [facility] [address] [id number] [place] [address] Jun, [facility] [address] [id number] [place] [address] Jun, [facility] [address] [id number] [place] [address] Jun, [facility] [address] [id number] [place] [address] Jun, [facility] [address] [id number] [place] [address] Jun, [facility] [address] [id number] [place] [address] Jun, [facility] [address] [id number] [place] [address] Jun, [facility] [address] [id number] [place] [address] Jun, [facility] [address] [id number] [place] [address] Jun, [facility] [address] [id number] [place] [address] Jun, [facility] [address] [id number] [place] [address] Jun, [facility] [address] [id number] [place] [address] Jun, [facility] [address] [id number] [place] [address] Jun, [facility] [address] [id number] [place] [address] May, [facility] [address] [id number] [place] [address] May, [facility] [address] [id number] [place] [address] May, [facility] [address] [id number] [place] [address] May, [facility] [address] [id number] [place] [address] May, [facility] [address] [id number] [place] [address] May, [facility] [address] [id number] [place] [address] May, [facility] [address] [id number] [place] [address] May, [facility] [address] [id number] [place] [address] May, [facility] [address] [id number] [place] [address] Apr, [facility] [address] [id number] [place] [address] Apr, [facility] [address] [id number] [place] [address] Apr, [facility] [address] [id number] [place] [address] Apr, [facility] [address] [id number] [place] [address] Apr, [facility] [address] [id number] [place] [address] Apr, [facility] [address] [id number] [place] [address] Apr, [facility] [address] [id number] [place] [address] Apr, [facility] [address] [id number] [place] [address] Apr, [facility] [address] [id number] [place] [address] Apr, [facility] [address] [id number] [place] [address] Apr, [facility] [address] [id number] [place] [address] Apr, [facility] [address] [facility] [id number] [place] [address] Mar, [facility] [address] [id number] [place] [address] Mar, [facility] [address] [facility] [id number] [place] [address] Mar, 2013 [facility] [address] [facility] [id number] [place] [address] Mar, 2013 [facility] [address] [id number] [place] [address] Mar, 2013 [facility] [address] [id number] [place] [address] Mar, 2013 [facility] [address] [id number] [place] [address] Mar, 2013 [facility] [address] [id number] [place] [address] Mar, [facility] [address] [id number] [place] [address] Mar, [facility] [address] [id number] [place] [address] Mar, [facility] [address] [id number] [place] [address] Feb, [facility] [address] [facility] [id number] [place] [address] Feb, [facility] [address] [id number] [place] [address] Feb, [facility] [address] [id number] [place] [address] Feb, [facility] [address] [id number] [place] [address] Feb, [facility] [address] [id number] [place] [address] Feb, [facility] [address] [id number] [place] [address] Feb, [facility] [address] [facility] [id number] [place] [address] Feb, [facility] [address] [facility] [id number] [place] [address] Feb, [facility] [address] [facility] [id number] [place] [address] Feb, [facility] [address] [id number] [place] [address] Feb, [facility] [address] [facility] [id number] [place] [address] Feb, [facility] [address] [id number] [place] [address] Feb, [facility] [address] [facility] [id number] [place] [address] Feb, [facility] [address] [id number] [place] [address] Feb, [facility] [address] [facility] [id number] [place] [address] Feb, [facility] [address] [facility] [id number] [place] [address] Jan, [facility] [address] [id number] [place] [address] Jan, [facility] [address] [id number] [place] [address] Jan, [facility] [address] [id number] [place] [address] Jan, [facility] [address] [facility] [id number] [place] [address] Jan, [facility] [address] [id number] [place] [address] Jan, [facility] [address] [id number] [place] [address] Dec, [facility] [address] [id number] [place] [address] Dec, [facility] [address] [id number] [place] [address] Dec, [facility] [address] [id number] [place] [address] Dec, [facility] [address] [facility] [id number] [place] [address] Dec, [facility] [address] [id number] [place] [address] Dec, [facility] [address] [id number] [place] [address] Dec, [facility] [address] [id number] [place] [address] Dec, [facility] [address] [id number] [place] [address] November, [facility] [address] [id number] [place] [address] November, [facility] [address] [id number] [place] [address] November, [facility] [address] [id number] [place] [address] November, [facility] [address] [id number] [place] [address] November, [facility] [address] [id number] [place] [address] November, [facility] [address] [id number] [place] [address] Oct, [facility] [address] [id number] [place] [address] Oct, [facility] [address] [id number] [place] [address] Oct, [facility] [address] [facility] [id number] [place] [address] Oct, [facility] [address] [facility] [id number] [place] [address] Sep, [facility] [address] [id number] [place] [address] Sep, [facility] [address] [id number] [place] [address] Sep, [facility] [address] [facility] [id number] [place] [address] Sep, [facility] [address] [id number] [place] [address] Sep, [facility] [address] [id number] [place] [address] Sep, [facility] [address] [id number] [place] [address] Aug, [facility] [address] [facility] [id number] [place] [address] Aug, [facility] [address] [id number] [place] [address] Aug, [facility] [address] [id number] [place] [address] Aug, [facility] [address] [id number] [place] [address] Aug, [facility] [address] [facility] [id number] [place] [address] Aug, [facility] [address] [id number] [place] [address] Jul, [facility] [address] [id number] [place] [address] Jul, [facility] [address] [id number] [place] [address] Jul, [facility] [address] [id number] [place] [address] Jul, [facility] [address] [id number] [place] [address] Jul, [facility] [address] [id number] [place] [address] Jul, [facility] [address] [id number] [place] [address] Jul, [facility] [address] [id number] [place] [address] Jul, [facility] [address] [id number] [place] [address] Jul, [facility] [address] [id number] [place] [address] Jul, [facility] [address] [id number] [place] [address] Jul, [facility] [address] [id number] [place] [address] Jul, [facility] [address] [id number] [place] [address] Jul, [facility] [address] [id number] [place] [address] Jul, [facility] [address] [id number] [place] [address] Jul, [facility] [address] [id number] [place] [address] Jun, [facility] [address] [id number] [place] [address] Jun, [facility] [address] [id number] [place] [address] Jun, [facility] [address] [id number] [place] [address] Jun, [facility] [address] [id number] [place] [address] May, [facility] [id number] [place] [address] May, [facility] [address] [id number] [id number] May, [facility] [id number] [place] [address] May, [facility] [id number] [place] [address] May, [facility] [id number] [place] [address] May, [facility] [address] [address] May, [facility] [id number] [place] [address] May, [facility] [id number] [place] [address] May, [facility] [address] [id number] [id number] May, [facility] [id number] [place] [address] May, [facility] [address] [id number] [id number] May, [facility] [address] [id number] [place] [address] May, [place] [id number] [place] [id number] May, [facility] [id number] [place] [address] May, IMMUNIZATIONS No Known Immunizations SOCIAL HISTORY Never Assessed REASON FOR VISIT PLAN OF CARE VITAL SIGNS Height 63 in 2013-11-08 Weight 156.8 lbs 2013-11-08 Temperature 96.6 degrees Fahrenheit 2013-11-08 Heart Rate 76 bpm 2013-11-08 Respiratory Rate 22 2013-11-08 Blood pressure systolic 104 mmHg 2013-11-08 Blood pressure diastolic 62 mmHg 2013-11-08 MEDICATIONS Unknown Medications RESULTS No Results PROCEDURES [...] Diarrhea, leukocytosis--[facility] 01/08/16 Hospitalization History pseudomemranous colitis, sepsis--[facility] 04/21/2016 Hospitalization History C Diff--[facility] 05/10/2016 Hospitalization History sepsis, pneumonia, diarrhea--[facility] Hospitalization History recurrent cdiff, pneumonia-[facility] Hospitalization History sepsis,pneumonia- [facility] 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
[2019-11-07 10:24] LABS: ALBUMIN 3.8 GM/DL (3.2-4.5)
[2019-11-07 10:25] LABS: CHLORIDE 103 MMOL/L (98-107); INR 1.3 (0.8-1.4); POTASSIUM 4.1 MMOL/L (3.6-5.0); PROTHROMBIN TIME PATIENT 16.7 SEC (12.2-14.7); SODIUM 139 MMOL/L (135-145)
[2019-11-07 10:26] LABS: CALCIUM 9.9 MG/DL (8.5-10.1)
[2019-11-07 10:27] LABS: GLUCOSE 144 MG/DL (70-105); TOTAL PROTEIN 8.3 GM/DL (6.4-8.2)
[2019-11-07 10:28] LABS: CARBON DIOXIDE 25 MMOL/L (21-32)
[2019-11-07 10:29] LABS: BILIRUBIN,TOTAL 0.3 MG/DL (0.1-1.0)
[2019-11-07 10:30] LABS: ALKALINE PHOSPHATASE 94 U/L (40-136)
[2019-11-07 10:31] LABS: CREATININE SERUM 0.74 MG/DL (0.60-1.30); GFR ESTIMATED > 60
[2019-11-07 10:32] LABS: BUN/CREATININE RATIO 19
[2019-11-07 10:33] LABS: ALANINE AMINOTRANSFERASE 21 U/L (0-55)
--- OUTSIDE RECORDS SUMMARY | 2019-11-07 10:38 | XMS REPORT | Continuity of Care Document ---
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 ALFORD, MIKHAIL Graham Ot 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, SPEECH LA 04/11/2015 EVELYN ALFORD, MIKHAIL Santos Ot 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 04/11/2015 EVELYN ALFORD, MIKHAIL Graham Ot V57 .3 CARE INVOLVING SPEECH-LANGUAGE THERAPY 04/12/2015 EVELYN ALFORD, MIKHAIL Graham Ot 438.11 04/12/2015 EVELYN ALFORD, MIKHAIL Graham Ot 438.81 04/12/2015 EVELYN ALFORD, MIKHAIL Graham Ot V57 .3 04/23/2015 EVELYN ALFORD, MIKHAIL Graham Ot 438.11 04/23/2015 EVELYN ALFORD, MIKHAIL Graham Ot 438.81 04/23/2015 EVELYN ALFORD, MIKHAIL Graham Ot V57 .3 05/10/2015 EVELYN ALFORD, MIKHAIL Graham Ot I69.920 05/10/2015 EVELYN ALFORD, MIKHAIL Graham Ot I69.990 06/04/2015 EVELYN ALFORD, MIKHAIL Graham Ot I69.920 06/04/2015 EVELYN ALFORD, MIKHAIL Graham Ot I69.990 06/08/2015 EVELYN ALFORD, MIKHAIL Graham Ot I69.920 06/08/2015 EVELYN ALFORD, MIKHAIL Graham Ot I69.990 06/22/2015 EVELYN ALFORD, MIKHAIL Graham Ot 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 61 06/28/2015 CECI ALFORD, JUNIOR De La Cruz Ot V58. 83 06/28/2015 CECI ALFORD, JUNIOR De La Cruz Ot V58. 61 06/28/2015 CECI ALFORD, JUNIOR De La Cruz Ot V58. 83 06/28/2015 SUNDAR ALFORD, JUNIOR Brannon Ot V58.6 1 06/28/2015 SUNDAR ALFORD, JUNIOR Brannon Ot V58.8 3 06/28/2015 SUNDAR ALFORD, JUNIOR Brannon Ot V58.6 1 06/28/2015 SUNDAR ALFORD, JUNIOR Brannon Ot V58.8 3 06/28/2015 MAJRORIE EDUARDO Ot 305.1 06/28/2015 BAIMARJORIE KOLB L [employer]ED [employer] SALES EXEC Ot 427.0 06/28/2015 ALESHAMARJORIE L [employer]2B MANAGED SERVICE SALES EXEC Ot 443.9 06/28/2015 ALESHAMARJORIE L B2B MANAGED SERVICE SALES EXEC Ot 4 96 07/19/2015 DAPHNE YUSUF [employer]2B MANA[employer]ED SERVICE SALES EXEC Ot I73.9 07/25/2015 PILI YUSUFA B2B MANAGED SERVICE SALES EXEC Ot I73.9 08/10/2015 DAPHNE YUSUF B2B MANAGED SERVICE SALES EXEC Ot I69.920 08/10/2015 PILI YUSUFA B2B MANAGED SERVICE SALES EXEC Ot I69.990 09/07/2015 PILI YUSUFA B2B MANAGED SERVICE SALES EXEC Ot I69.920 09/07/2015 PILI YUSUFA B2B MANAGED SERVICE SALES EXEC Ot I69.990 09/17/2015 DAPHNE YUSUF B2B MANAGED SERVICE SALES EXEC Ot 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 61 10/23/2015 CECI ALFORD, JUNIOR De La Cruz Ot V58. 83 10/23/2015 CECI ALFORD, JUNIOR De La Cruz Ot V58. 61 10/23/2015 CECI ALFORD, JUNIOR De La Cruz Ot V58. 83 10/23/2015 SUNDAR ALFORD, JUNIOR Brannon Ot V58.6 1 10/23/2015 SUNDAR ALFORD, JUNIOR Brannon Ot V58.8 3 10/23/2015 SUNDAR ALFORD, JUNIOR Brannon Ot V58.6 1 10/23/2015 SUNDAR ALFORD, JUNIOR Brannon Ot V58.8 3 10/23/2015 YURIMARJORIE KOLB Carlyn B2B MANAGED SERVICE SALES EXEC Ot 305.1 10/23/2015 YURIMARJORIE KOLB Carlyn [employer]2B MANAGED SERVICE SALES EXEC Ot 427.0 10/23/2015 YURIMARJORIE KOLB L [employer]2B MANAGED SERVICE SALES EXEC Ot 443.9 10/23/2015 ALESHA MARJORIE L B2B MANAGED SERVICE SALES EXEC Ot 4 96 10/23/2015 DAPHNE YUSUF [employer]2B MANA[employer]ED SERV[employer] SALES EXEC Ot I73.9 10/24/2015 RASHID ALFORD, SATNAM Castro Ot F32 .9 MAJOR DEPRESSIVE DISORDER, SINGLE EPISOD 10/24/2015 RASHID ALFORD, SATNAM Castro Ot F41 .9 ANXIETY DISORDER, UNSPECIFIED 10/24/2015 SATNAM MIKE MD Ot G47.00 INSOMNIA, UNSPECIFIED 10/24/2015 SATNAM MIKE MD Ot I48.91 UNSPECIFIED ATRIAL FIBRILLATION 10/24/2015 SATNAM MIKE MD Ot I69.322 DYSARTHRIA FOLLOWING CEREBRAL INFARCTION 10/24/2015 SATNAM MIKE MD Ot I69.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 FOLLOWING CEREBRAL INFRC AFF RI 10/24/2015 SATNAM MIKE MD Ot I70.203 [facility] [place] [facility] 10/24/2015 SATNAM MIKE MD Ot J44 .1 CHRONIC OBSTRUCTIVE PULMONARY DISEASE W 10/24/2015 SATNAM MIKE MD Ot Z95.820 PERIPHERAL VASCULAR ANGIOPLASTY STATUS W 10/24/2015 SATNAM MIKE MD Ot F32 .9 MAJOR DEPRESSIVE DISORDER, SINGLE EPISOD 10/24/2015 SATNAM MIKE MD Ot F41 .9 ANXIETY DISORDER, UNSPECIFIED 10/24/2015 SATNAM MIKE MD Ot G47.00 INSOMNIA, UNSPECIFIED 10/24/2015 SATNAM MIKE MD Ot I48.91 UNSPECIFIED ATRIAL FIBRILLATION 10/24/2015 SATNAM MIKE MD Ot I69.322 DYSARTHRIA FOLLOWING CEREBRAL INFARCTION 10/24/2015 SATNAM MIKE MD Ot I69.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 FOLLOWING CEREBRAL INFRC AFF RI 10/24/2015 SATNAM MIKE MD Ot I70.203 [facility] [place] [facility] 10/24/2015 SATNAM MIKE MD Ot J44 .1 CHRONIC OBSTRUCTIVE PULMONARY DISEASE W 10/24/2015 SATNAM MIKE MD Ot Z95.820 PERIPHERAL VASCULAR ANGIOPLASTY STATUS W 11/20/2015 JESSICA ALFORD FACC, AUGIE GUALLPAP CCDS Ot I42.9 CARDIOMYOPATHY, UNSPECIFIED 11/21/2015 JESSICA ALFORD FACC, AUGIE FACP CCDS Ot R06.02 SHORTNESS OF BREATH 11/21/2015 KETAN DUARTE APRN Ot G47.9 SLEEP DISORDER, UNSPECIFIED 11/21/2015 KETAN DUARTE APRN Ot J44.9 CHRONIC OBSTRUCTIVE PULMONARY DISEASE, U 11/21/2015 KETAN DUARTE APRN Ot R05 COUGH 11/21/2015 MARYCHUY DUARTEINE E GARAGEMAN Ot R06.2 WHEEZING 11/21/2015 JESSICA ALFORD FAC, AUGIE ELI CCDS Ot R06.02 SHORTNESS OF BREATH 11/22/2015 KETAN DUARTE GARAGEMAN Ot J44.9 CHRONIC OBSTRUCTIVE PULMONARY DISEASE, U 11/23/2015 GERALD, KETAN Anmol GARAGEMAN Ot F17.201 NICOTINE DEPENDENCE, UNSPECIFIED, IN REM 11/23/2015 GERALDMARYCHUY ELLISONINE Anmol GARAGEMAN Ot J44.9 CHRONIC OBSTRUCTIVE PULMONARY DISEASE, U 11/23/2015 GERALD, KETAN E GARAGEMAN Ot R05 COUGH 11/23/2015 GERALDMARYCHUY ELLISONINE E GARAGEMAN Ot R06.2 WHEEZING 11/23/2015 GERALDMARYCHUY ELLSIONINE Anmol GARAGEMAN Ot F17.201 NICOTINE DEPENDENCE, UNSPECIFIED, IN REM 11/23/2015 GERALDMARYCHUY ELLISONINE Anmol GARAGEMAN Ot J44.9 CHRONIC OBSTRUCTIVE PULMONARY DISEASE, U 11/23/2015 GERALDMARYCHUY ELLISONINE E GARAGEMAN Ot R05 COUGH 11/23/2015 MARYCHUY DUARTEINE E GARAGEMAN Ot R06.2 WHEEZING 11/29/2015 NAM GASPAR B2B MANAGED SERVICE SALES EXEC Ot R06.02 SHORTNESS OF BREATH 11/29/2015 NAM GASPAR B2B MANAGED SERVICE SALES EXEC Ot R60.9 EDEMA, UNSPECIFIED 12/09/2015 JUNIOR ORNELAS MD Ot V58. 61 ANTICOAGULANTS,LT,CURRENT USE 12/09/2015 JUNIOR ORNELAS MD Ot V58. 83 ENCOUNTER FOR THERAPEUTIC DRUG MONITORIN 12/09/2015 JUNIOR ORNELAS MD Ot V58. 61 ANTICOAGULANTS,LT,CURRENT USE 12/09/2015 JUNIOR ORNELAS MD Ot V58. 83 ENCOUNTER FOR THERAPEUTIC DRUG MONITORIN 12/09/2015 JUNIOR KWOK MD Ot V58.6 1 ANTICOAGULANTS,LT,CURRENT USE 12/09/2015 JUNIOR KWOK MD Ot V58.8 3 ENCOUNTER FOR THERAPEUTIC DRUG MONITORIN 12/09/2015 JUNIOR KWOK MD Ot V58.6 1 ANTICOAGULANTS,LT,CURRENT USE 12/09/2015 JUNIOR KWOK MD Ot V58.8 3 ENCOUNTER FOR THERAPEUTIC DRUG MONITORIN 12/09/2015 MARJORIE EDUARDO B2B MANAGED SERVICE SALES EXEC Ot 305.1 TOBACCO USE DISORDER 12/09/2015 MARJORIE EDUARDO B2B MANAGED SERVICE SALES EXEC Ot 427.0 PAROX ATRIAL TACHYCARDIA 12/09/2015 MARJORIE EDUARDO B2B MANAGED SERVICE SALES EXEC Ot 443.9 PERIPH VASCULAR DIS NOS 12/09/2015 YURIMARJORIE KOLB B2B MANAGED SERVICE SALES EXEC Ot 4 96 CHR AIRWAY OBSTRUCT NEC 12/09/2015 DAPHNE YUSUF B2B MANAGED SERVICE SALES EXEC Ot I73.9 PERIPHERAL VASCULAR DISEASE, UNSPECIFIED 12/09/2015 NAM GASPAR B2B MANAGED SERVICE SALES EXEC Ot R06.02 SHORTNESS OF BREATH 12/09/2015 NAM GASPAR B2B MANAGED SERVICE SALES EXEC Ot R60.9 EDEMA, UNSPECIFIED 12/09/2015 JESSICA ALFORD FAC, AUGIE ELI CCDS Ot R06.02 SHORTNESS OF BREATH 12/09/2015 KETAN DUARTE GARAGEMAN Ot G47.9 SLEEP DISORDER, UNSPECIFIED 12/09/2015 KETAN DUARTE GARAGEMAN Ot J44.9 CHRONIC OBSTRUCTIVE PULMONARY DISEASE, U 12/09/2015 KETAN DUARTE GARAGEMAN Ot R05 COUGH 12/09/2015 KETAN DUARTE GARAGEMAN Ot R06.2 WHEEZING 12/09/2015 KETAN DUARTE GARAGEMAN Ot F17.201 NICOTINE DEPENDENCE, UNSPECIFIED, IN REM 12/09/2015 KETAN DUARTE GARAGEMAN Ot J44.9 CHRONIC OBSTRUCTIVE PULMONARY DISEASE, U 12/09/2015 KETAN DUARTE GARAGEMAN Ot R05 COUGH 12/09/2015 KETAN DUARTE GARAGEMAN Ot R06.2 WHEEZING 12/09/2015 PALOMO SALAZAR APRN Ot 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 12/09/2015 PALOMO SALAZAR APRN Ot J44 .9 CHRONIC OBSTRUCTIVE PULMONARY DISEASE, U 12/09/2015 PALOMO SALAZAR GARAGEMAN Ot L02.611 CUTANEOUS ABSCESS OF RIGHT FOOT 12/09/2015 PALOMO SALAZAR GARAGEMAN Ot R29 .6 REPEATED FALLS 12/09/2015 PALOMO SALAZAR GARAGEMAN Ot Z87.891 PERSONAL HISTORY OF NICOTINE DEPENDENCE 12/11/2015 PALOMO SALAZAR APRN Ot 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 12/11/2015 PALOMO SALAZAR APRN Ot J44 .9 CHRONIC OBSTRUCTIVE PULMONARY DISEASE, U 12/11/2015 PALOMO SALAZAR APRN Ot L02.611 CUTANEOUS ABSCESS OF RIGHT FOOT 12/11/2015 PALOMO SALAZAR GARAGEMAN Ot R29 .6 REPEATED FALLS 12/11/2015 PALOMO SALAZAR GARAGEMAN Ot Z87.891 PERSONAL HISTORY OF NICOTINE DEPENDENCE 12/13/2015 NAM GASPAR B2B MANAGED SERVICE SALES EXEC Ot R06.02 SHORTNESS OF BREATH 12/13/2015 NAM GASPAR B2B MANAGED SERVICE SALES EXEC Ot R60.9 EDEMA, UNSPECIFIED 12/17/2015 CECI ALFORD, JUNIOR De La Cruz Ot V58. 61 ANTICOAGULANTS,LT,CURRENT USE 12/17/2015 CECI ALFORD, JUNIOR De La Cruz Ot V58. 83 ENCOUNTER FOR THERAPEUTIC DRUG MONITORIN 12/17/2015 JUNIOR ORNELAS MD Ot V58. 61 ANTICOAGULANTS,LT,CURRENT USE 12/17/2015 JUNIOR ORNELAS MD Ot V58. 83 ENCOUNTER FOR THERAPEUTIC DRUG MONITORIN 12/17/2015 JUNIOR KWOK MD Ot V58.6 1 ANTICOAGULANTS,LT,CURRENT USE 12/17/2015 JUNIOR KWOK MD Ot V58.8 3 ENCOUNTER FOR THERAPEUTIC DRUG MONITORIN 12/17/2015 JUNIOR KWOK MD Ot V58.6 1 ANTICOAGULANTS,LT,CURRENT USE 12/17/2015 JUNIOR KWOK MD Ot V58.8 3 ENCOUNTER FOR THERAPEUTIC DRUG MONITORIN 12/17/2015 MARJORIE EDUARDO B2B MANAGED SERVICE SALES EXEC Ot 305.1 TOBACCO USE DISORDER 12/17/2015 MARJORIE EDUARDO B2B MANAGED SERVICE SALES EXEC Ot 427.0 PAROX ATRIAL TACHYCARDIA 12/17/2015 MARJORIE EDUARDO B2B MANAGED SERVICE SALES EXEC Ot 443.9 PERIPH VASCULAR DIS NOS 12/17/2015 MARJORIE EDUARDO B2B MANAGED SERVICE SALES EXEC Ot 4 96 CHR AIRWAY OBSTRUCT NEC 12/17/2015 DAPHNE YUSUF B2B MANAGED SERVICE SALES EXEC Ot I73.9 PERIPHERAL VASCULAR DISEASE, UNSPECIFIED 12/17/2015 NAM GASPAR B2B MANAGED SERVICE SALES EXEC Ot R06.02 SHORTNESS OF BREATH 12/17/2015 NAM GASPAR B2B MANAGED SERVICE SALES EXEC Ot R60.9 EDEMA, UNSPECIFIED 12/17/2015 AUGIE FONG MD, FACC, FACP CCDS Ot R06.02 SHORTNESS OF BREATH 12/17/2015 KTEAN DUARTE APRN Ot G47.9 SLEEP DISORDER, UNSPECIFIED 12/17/2015 KETAN DUARTE APRN Ot J44.9 CHRONIC OBSTRUCTIVE PULMONARY DISEASE, U 12/17/2015 KETAN DUARTE APRN Ot R05 COUGH 12/17/2015 GERALDMARYCHUY ELLISONINE Anmol GARAGEMAN Ot R06.2 WHEEZING 12/17/2015 GERALDMARYCHUY ELLISONINE Anmol GARAGEMAN Ot F17.201 NICOTINE DEPENDENCE, UNSPECIFIED, IN REM 12/17/2015 MARYCHUY DUARTEINE Anmol GARAGEMAN Ot J44.9 CHRONIC OBSTRUCTIVE PULMONARY DISEASE, U 12/17/2015 GERALDMARYCHUY ELLISONINE E GARAGEMAN Ot R05 COUGH 12/17/2015 GERALDMARYCHUY ELLISONINE Anmol GARAGEMAN Ot R06.2 WHEEZING 12/19/2015 JESSICA ALFORD FAC, ALI [facility] CCDS Ot R06.02 SHORTNESS OF BREATH 12/19/2015 KETAN DUARTE GARAGEMAN Ot G47.9 SLEEP DISORDER, UNSPECIFIED 12/19/2015 KETAN DUARTE GARAGEMAN Ot J44.9 CHRONIC OBSTRUCTIVE PULMONARY DISEASE, U 12/19/2015 KETAN DUARTE GARAGEMAN Ot R05 COUGH 12/19/2015 KETAN DUARTE GARAGEMAN Ot R06.2 WHEEZING 12/19/2015 KETAN DUARTE GARAGEMAN Ot F17.201 NICOTINE DEPENDENCE, UNSPECIFIED, IN REM 12/19/2015 KETAN DUARTE GARAGEMAN Ot J44.9 CHRONIC OBSTRUCTIVE PULMONARY DISEASE, U 12/19/2015 KETAN DUARTE GARAGEMAN Ot R05 COUGH 12/19/2015 KETAN DUARTE GARAGEMAN Ot R06.2 WHEEZING 12/19/2015 LULÚ MCKEON DO Ot F41. 9 ANXIETY DISORDER, UNSPECIFIED 12/19/2015 LULÚ MCKEON DO Ot J44. 9 CHRONIC OBSTRUCTIVE PULMONARY DISEASE, U 12/19/2015 LULÚ MCKEON DO Ot R06. 02 SHORTNESS OF BREATH 12/19/2015 LULÚ MCKEON DO Ot Z72. 0 TOBACCO USE 12/24/2015 JESSICA ALFORD FAC, ALI [facility] CCDS Ot R06.02 SHORTNESS OF BREATH 12/25/2015 KETAN DUARTE GARAGEMAN Ot G47.9 SLEEP DISORDER, UNSPECIFIED 12/25/2015 KETAN DUARTE GARAGEMAN Ot J44.9 CHRONIC OBSTRUCTIVE PULMONARY DISEASE, U 12/25/2015 KETAN DUARTE GARAGEMAN Ot R05 COUGH 12/25/2015 MARYCHUY DUARTEINE Anmol GARAGEMAN Ot R06.2 WHEEZING 12/25/2015 KETAN DUARTE GARAGEMAN Ot F17.201 NICOTINE DEPENDENCE, UNSPECIFIED, IN REM 12/25/2015 KETAN DUARTE APRN Ot J44.9 CHRONIC OBSTRUCTIVE PULMONARY DISEASE, U 12/25/2015 KETAN DUARTE GARAGEMAN Ot R05 COUGH 12/25/2015 KETAN DUARTE GARAGEMAN Ot R06.2 WHEEZING 01/08/2016 LULÚ MCKEON DO Ot F41. 9 ANXIETY DISORDER, UNSPECIFIED 01/08/2016 LULÚ MCKEON DO Ot J44. 9 CHRONIC OBSTRUCTIVE PULMONARY DISEASE, U 01/08/2016 LULÚ MCKEON DO Ot R06. 02 SHORTNESS OF BREATH 01/08/2016 LULÚ MCKEON DO Ot Z72. 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 9 ANXIETY DISORDER, UNSPECIFIED 01/30/2016 LULÚ MCKEON DO Ot J44. 9 CHRONIC OBSTRUCTIVE PULMONARY DISEASE, U 01/30/2016 LULÚ MCKEON DO Ot R06. 02 SHORTNESS OF BREATH 01/30/2016 LULÚ MCKEON DO Ot Z72. 0 TOBACCO USE 01/30/2016 JANEY ALFORD, GRETEL Brannon Ot D50.9 IRON DEFICIENCY ANEMIA, UNSPECIFIED 01/30/2016 GRETEL TOTH MD Ot R19.7 DIARRHEA, UNSPECIFIED 01/30/2016 JANEY ALFORD, GRETEL Brannon Ot Z01.818 ENCOUNTER FOR OTHER PREPROCEDURAL EXAMIN 01/31/2016 JANEY ALFORD, GRETEL Brannon Ot B37.81 CANDIDAL ESOPHAGITIS 01/31/2016 GRETEL TOTH MD Ot D50.9 IRON DEFICIENCY ANEMIA, UNSPECIFIED 01/31/2016 JANEY ALFORD, GRETEL Brannon Ot K26.9 DUODENAL ULCER, UNSP ACUTE OR CHRONIC 01/31/2016 RGETEL TOTH MD Ot K29.70 GASTRITIS, UNSPECIFIED, WITHOUT BLEEDING 01/31/2016 JANEY ALFORD, GRETEL Brannon Ot 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 PERFORATION OR AB 01/31/2016 GRETEL TOTH MD Ot K63.5 POLYP OF COLON 01/31/2016 GRETEL TOTH MD Ot R19.7 DIARRHEA, UNSPECIFIED 02/01/2016 GRETEL TOTH MD Ot B37.81 CANDIDAL ESOPHAGITIS 02/01/2016 GRETEL TOTH MD Ot D50.9 IRON DEFICIENCY ANEMIA, UNSPECIFIED 02/01/2016 GRETEL TOTH MD Ot K26.9 DUODENAL ULCER, UNSP ACUTE OR CHRONIC 02/01/2016 GRETEL TOTH MD Ot K29.70 GASTRITIS, UNSPECIFIED, WITHOUT BLEEDING 02/01/2016 JANEY ALFORD, GRETEL Brannon Ot 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 PERFORATION OR AB 02/01/2016 GRETEL TOTH MD Ot K63.5 POLYP OF COLON 02/01/2016 GRETEL TOTH MD Ot R19.7 DIARRHEA, UNSPECIFIED 02/03/2016 KAM ALFORD, DANA Pradhan Ot J02.9 ACUTE PHARYNGITIS, UNSPECIFIED 03/21/2016 DAPHNE YUSUF Ot D50.9 IRON DEFICIENCY ANEMIA, UNSPECIFIED 03/24/2016 GRETEL TOTH MD Ot D50.9 IRON DEFICIENCY ANEMIA, UNSPECIFIED 03/24/2016 JANEY ALFORD, GRETEL Brannon Ot Z01.818 ENCOUNTER FOR OTHER PREPROCEDURAL EXAMIN 03/27/2016 CECI ALFORD, JUNIOR De La Cruz Ot V58. 61 ANTICOAGULANTS,LT,CURRENT USE 03/27/2016 CECI ALFORD, JUNIOR De La Cruz Ot V58. 83 ENCOUNTER FOR THERAPEUTIC DRUG MONITORIN 03/27/2016 CECI ALFORD, JUNIOR De La Cruz Ot V58. 61 ANTICOAGULANTS,LT,CURRENT USE 03/27/2016 CECI ALFORD, JUNIOR De La Cruz Ot V58. 83 ENCOUNTER FOR THERAPEUTIC DRUG MONITORIN 03/27/2016 SUNDAR ALFORD, JUNIOR Brannon Ot V58.6 1 ANTICOAGULANTS,LT,CURRENT USE 03/27/2016 SUNDAR ALFORD, JUNIOR Brannon Ot V58.8 3 ENCOUNTER FOR THERAPEUTIC DRUG MONITORIN 03/27/2016 SUNDAR ALFORD, JUNIOR Brannon Ot V58.6 1 ANTICOAGULANTS,LT,CURRENT USE 03/27/2016 SUNDAR ALFORD, JUNIOR Brannon Ot V58.8 3 ENCOUNTER FOR THERAPEUTIC DRUG MONITORIN 03/27/2016 MARJORIE EDUARDO B2B MANAGED SERVICE SALES EXEC Ot 305.1 TOBACCO USE DISORDER 03/27/2016 MARJORIE EDUARDO B2B MANAGED SERVICE SALES EXEC Ot 427.0 PAROX ATRIAL TACHYCARDIA 03/27/2016 MARJORIE EDUARDO B2B MANAGED SERVICE SALES EXEC Ot 443.9 PERIPH VASCULAR DIS NOS 03/27/2016 MARJORIE EDUARDO B2B MANAGED SERVICE SALES EXEC Ot 4 96 CHR AIRWAY OBSTRUCT NEC 03/27/2016 DAPHNE YSUUF B2B MANAGED SERVICE SALES EXEC Ot I73.9 PERIPHERAL VASCULAR DISEASE, UNSPECIFIED 03/27/2016 NAM GASPAR B2B MANAGED SERVICE SALES EXEC Ot R06.02 SHORTNESS OF BREATH 03/27/2016 NAM GASPAR B2B MANAGED SERVICE SALES EXEC Ot R60.9 EDEMA, UNSPECIFIED 03/27/2016 JESSICA ALFORD FACC, AUGIE ELI CCDS Ot R06.02 SHORTNESS OF BREATH 03/27/2016 KETAN DUARTE GARAGEMAN Ot G47.9 SLEEP DISORDER, UNSPECIFIED 03/27/2016 KETAN DUARTE GARAGEMAN Ot J44.9 CHRONIC OBSTRUCTIVE PULMONARY DISEASE, U 03/27/2016 KETAN DUARTE GARAGEMAN Ot R05 COUGH 03/27/2016 KETAN DUARTE GARAGEMAN Ot R06.2 WHEEZING 03/27/2016 KETAN DUARTE GARAGEMAN Ot F17.201 NICOTINE DEPENDENCE, UNSPECIFIED, IN REM 03/27/2016 KETAN DUARTE APRN Ot J44.9 CHRONIC OBSTRUCTIVE PULMONARY DISEASE, U 03/27/2016 KETAN DUARTE APRN Ot R05 COUGH 03/27/2016 KETAN DUARTE APRN Ot R06.2 WHEEZING 03/27/2016 LULÚ MCKEON DO Ot F41. 9 ANXIETY DISORDER, UNSPECIFIED 03/27/2016 LULÚ MCKEON DO Ot J44. 9 CHRONIC OBSTRUCTIVE PULMONARY DISEASE, U 03/27/2016 LULÚ MCKEON DO Ot R06. 02 SHORTNESS OF BREATH 03/27/2016 LULÚ MCKEON DO Ot Z72. 0 TOBACCO USE 03/27/2016 DAPHNE YUSUF Ot D50.9 IRON DEFICIENCY ANEMIA, UNSPECIFIED 03/27/2016 MARLENA HURTADO Ot E11.59 TYPE 2 DIABETES MELLITUS WITH OTH CIRCUL 03/27/2016 MARLENA HURTADO Ot F17.210 NICOTINE DEPENDENCE, CIGARETTES, UNCOMPL 03/27/2016 MARLENA HURTADO Ot F41.9 ANXIETY DISORDER, UNSPECIFIED 03/27/2016 MARLENA HURTADO Ot I47.1 SUPRAVENTRICULAR TACHYCARDIA 03/27/2016 MARLENA HURTADO Ot I65.23 OCCLUSION AND STENOSIS OF BILATERAL [place]DEZ 03/27/2016 MARLENA HURTADO Ot 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 03/27/2016 MARLENA HURTADO Ot I80.209 PHLBTS AND THOMBOPHLB OF UNSP DEEP VESSE 03/27/2016 MARLENA HURTADO Ot J44.9 CHRONIC OBSTRUCTIVE PULMONARY DISEASE, U 03/27/2016 MARLENA HURTADO Ot 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 03/27/2016 JANEY ALFORD, GRETEL Brannon Ot D50.9 IRON DEFICIENCY ANEMIA, UNSPECIFIED 03/27/2016 JANEY ALFORD, GRETEL Brannon Ot K29.70 GASTRITIS, UNSPECIFIED, WITHOUT BLEEDING 03/27/2016 JANEY ALFORD, GRETEL Brannon Ot K44.9 DIAPHRAGMATIC HERNIA WITHOUT OBSTRUCTION 03/31/2016 JANEY ALFORD, GRETEL Brannon Ot D50.9 IRON DEFICIENCY ANEMIA, UNSPECIFIED 03/31/2016 JANEY ALFORD, GRETEL Brannon Ot Z01.818 ENCOUNTER FOR OTHER PREPROCEDURAL EXAMIN 04/03/2016 DAPHNE YUSUF MANDY Ot D50.9 IRON DEFICIENCY ANEMIA, UNSPECIFIED 04/03/2016 GENESISMARLENA Ot E11.59 TYPE 2 DIABETES MELLITUS WITH OTH CIRCUL 04/03/2016 MARLENA HURTADO Ot F17.210 NICOTINE DEPENDENCE, CIGARETTES, UNCOMPL 04/03/2016 MARLENA HURTADO Ot F41.9 ANXIETY DISORDER, UNSPECIFIED 04/03/2016 MARLENA HURTADO Ot I47.1 SUPRAVENTRICULAR TACHYCARDIA 04/03/2016 MARLENA HURTADO Ot I65.23 OCCLUSION AND STENOSIS OF BILATERAL [place] 04/03/2016 MARLENA HURTADO Ot 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 04/03/2016 MARLENA HURTADO Ot I80.209 PHLBTS AND THOMBOPHLB OF [facility] DEEP VESSE 04/03/2016 MARLENA HURTADO Ot J44.9 CHRONIC OBSTRUCTIVE PULMONARY DISEASE, U 04/03/2016 MARLENA HURTADO Ot Z79.899 OTHER ASSISTED (CURRENT) DRUG THERAPY 04/08/2016 JANEY ALFORD, GRETEL Brannon Ot D50.9 IRON DEFICIENCY ANEMIA, UNSPECIFIED 04/11/2016 JANEY ALFORD, GRETEL Brannon Ot D50.9 IRON DEFICIENCY ANEMIA, UNSPECIFIED 04/11/2016 JANEY ALFORD, GRETEL Brannon Ot K29.70 GASTRITIS, UNSPECIFIED, WITHOUT BLEEDING 04/11/2016 JANEY ALFORD, GRETEL Brannon Ot K44.9 DIAPHRAGMATIC HERNIA WITHOUT OBSTRUCTION 04/18/2016 MARLENA HURTADO Ot E11.59 TYPE 2 DIABETES MELLITUS WITH OTH CIRCUL 04/18/2016 MARLENA HURTADO Ot F17.210 NICOTINE DEPENDENCE, CIGARETTES, UNCOMPL 04/18/2016 MARLENA HURTADO Ot F41.9 ANXIETY DISORDER, UNSPECIFIED 04/18/2016 MARLENA HURTADO Ot I47.1 SUPRAVENTRICULAR TACHYCARDIA 04/18/2016 MARLENA HURTADO Ot I65.23 OCCLUSION AND STENOSIS OF BILATERAL [place] 04/18/2016 MARLENA HURTADO Ot 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 04/18/2016 MARLENA HURTADO Ot I80.209 PHLBTS AND THOMBOPHLB OF [facility] DEEP VESSE 04/18/2016 MARLENA HURTADO Ot J44.9 CHRONIC OBSTRUCTIVE PULMONARY DISEASE, U 04/18/2016 MARLENA HURTADO Gloria Ot Z79.899 OTHER ASSISTED (CURRENT) DRUG THERAPY 04/21/2016 MARLENA HURTADO Gloria Ot E11.59 TYPE 2 DIABETES MELLITUS WITH OTH CIRCUL 04/21/2016 MARLENA HURTADO Gloria Ot F17.210 NICOTINE DEPENDENCE, CIGARETTES, UNCOMPL 04/21/2016 GENESIS ENOTRI Gloria Ot F41.9 ANXIETY DISORDER, UNSPECIFIED 04/21/2016 MARLENA HURTADO Gloria Ot I47.1 SUPRAVENTRICULAR TACHYCARDIA 04/21/2016 GENESISMARLENA CRUZ Gloria Ot I65.23 OCCLUSION AND STENOSIS OF BILATERAL [place] 04/21/2016 GENESISNEOTRI Gloria Ot 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 04/21/2016 GENESISNEOTRI Gloria Ot I80.209 PHLBTS AND THOMBOPHLB OF [facility] DEEP VESSE 04/21/2016 GENESISMARLENA CRUZ Gloria Ot J44.9 CHRONIC OBSTRUCTIVE PULMONARY DISEASE, U 04/21/2016 MARLENA HURTADO Ot 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 04/24/2016 MITZI ALFORD, JAMES Rossi Ot A04 .7 ENTEROCOLITIS DUE TO CLOSTRIDIUM DIFFICI 04/24/2016 JAMES CARTAGENA MD Ot A41 .9 SEPSIS, UNSPECIFIED ORGANISM 04/24/2016 JAMES CARTAGENA MD Ot D50 .9 IRON DEFICIENCY ANEMIA, UNSPECIFIED 04/24/2016 JAMES CARTAGENA MD Ot E78 .5 HYPERLIPIDEMIA, UNSPECIFIED 04/24/2016 JAMES CARTAGENA MD Ot E83.42 HYPOMAGNESEMIA 04/24/2016 JAMES CARTAGENA MD Ot E87 .6 HYPOKALEMIA 04/24/2016 JAMES CARTAGENA MD Ot F32 .9 MAJOR DEPRESSIVE DISORDER, SINGLE EPISOD 04/24/2016 JAMES CARTAGENA MD Ot F41 .9 ANXIETY DISORDER, UNSPECIFIED 04/24/2016 JAMES CARTAGENA MD Ot G47.00 INSOMNIA, UNSPECIFIED 04/24/2016 JAMES CARTAGENA MD Ot I69.322 DYSARTHRIA FOLLOWING CEREBRAL INFARCTION 04/24/2016 JAMES CARTAGENA MD Ot I69.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 FOLLOWING CEREBRAL INFRC AFF RI 04/24/2016 JAMES CARTAGENA MD Ot J44 .9 CHRONIC OBSTRUCTIVE PULMONARY DISEASE, U 04/24/2016 JAMES CARTAGENA MD Ot M06 .9 RHEUMATOID ARTHRITIS, UNSPECIFIED 04/24/2016 JAMES CARTAGENA MD Ot Z87.891 PERSONAL HISTORY OF NICOTINE DEPENDENCE 04/24/2016 JAMES CARTAGENA MD Ot Z89.432 ACQUIRED ABSENCE OF LEFT FOOT 04/24/2016 JAMES CARTAGENA MD Ot Z95.820 PERIPHERAL VASCULAR ANGIOPLASTY STATUS W 04/25/2016 JANEY ALFORD, GRETEL Brannon Ot D50.9 IRON DEFICIENCY ANEMIA, UNSPECIFIED 04/29/2016 MARLENA HURTADO Ot E11.59 TYPE 2 DIABETES MELLITUS WITH OTH CIRCUL 04/29/2016 MARLENA HURTADO Ot F17.210 NICOTINE DEPENDENCE, CIGARETTES, UNCOMPL 04/29/2016 MARLENA HURTADO Ot F41.9 ANXIETY DISORDER, UNSPECIFIED 04/29/2016 MARLENA HURTADO Ot I47.1 SUPRAVENTRICULAR TACHYCARDIA 04/29/2016 MARLENA HURTADO Ot I65.23 OCCLUSION AND STENOSIS OF BILATERAL [place] 04/29/2016 MARLENA HURTADO Ot 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 04/29/2016 MARLENA HURTADO Ot I80.209 PHLBTS AND THOMBOPHLB OF [facility] DEEP VESSE 04/29/2016 MARLENA HURTADO Ot J44.9 CHRONIC OBSTRUCTIVE PULMONARY DISEASE, U 04/29/2016 MARLENA HURTADO Ot 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 05/02/2016 JANEY ALFORD, GRETEL Brannon Ot D50.9 IRON DEFICIENCY ANEMIA, UNSPECIFIED 05/05/2016 JESSICA ALFORD FACC, ALI FACP CCDS Ot D63.8 ANEMIA IN OTHER CHRONIC DISEASES CLASSIF 05/05/2016 JESSICA GUALLPAC, ALI FACP CCDS Ot I47.1 SUPRAVENTRICULAR TACHYCARDIA 05/05/2016 JESSICA GUALLPAC, ALI FACP CCDS Ot 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 05/05/2016 JESSICA ALFORD FACC, ALI FACP CCDS Ot M06.9 RHEUMATOID ARTHRITIS, UNSPECIFIED 05/05/2016 JESSICA GUALLPA, ALI FACP CCDS Ot M79.89 OTHER SPECIFIED SOFT TISSUE DISORDERS 05/05/2016 JESSICA ALFORD FACC, ALI FACP CCDS Ot R07.89 OTHER CHEST PAIN 05/07/2016 JESSICA ALFORD FACC, ALI FACP CCDS Ot D63.8 ANEMIA IN OTHER CHRONIC DISEASES CLASSIF 05/07/2016 JESSICA ALFORD FACC, ALI FACP CCDS Ot I47.1 SUPRAVENTRICULAR TACHYCARDIA 05/07/2016 JESSICA ALFORD FACC, ALI FACP CCDS Ot 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 05/07/2016 JESSICA ALFORD FACC, ALI FACP CCDS Ot M06.9 RHEUMATOID ARTHRITIS, UNSPECIFIED 05/07/2016 JESSICA ALFORD FACC, ALI FACP CCDS Ot M79.89 OTHER SPECIFIED SOFT TISSUE DISORDERS 05/07/2016 JESSICA ALFORD FACC, ALI FACP CCDS Ot R07.89 OTHER CHEST PAIN 05/14/2016 MAURO SHI MD Ot A04. 7 ENTEROCOLITIS DUE TO CLOSTRIDIUM DIFFICI 05/14/2016 MAURO SHI MD Ot E78. 5 HYPERLIPIDEMIA, UNSPECIFIED 05/14/2016 MAURO SHI MD Ot E86. 0 DEHYDRATION 05/14/2016 MAURO SHI MD Ot F17.210 NICOTINE DEPENDENCE, CIGARETTES, UNCOMPL 05/14/2016 MAURO SHI MD Ot F32. 9 MAJOR DEPRESSIVE DISORDER, SINGLE EPISOD 05/14/2016 MAURO SHI MD Ot F41. 9 ANXIETY DISORDER, UNSPECIFIED 05/14/2016 MAURO SHI MD Ot G47. 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 9 CHRONIC OBSTRUCTIVE PULMONARY DISEASE, U 05/14/2016 MAURO SHI MD Ot M06. 9 RHEUMATOID ARTHRITIS, UNSPECIFIED 05/14/2016 MAURO SHI MD Ot M19. 90 UNSPECIFIED OSTEOARTHRITIS, UNSPECIFIED 05/14/2016 MAURO SHI MD Ot Z85.828 PERSONAL HISTORY OF OTHER MALIGNANT NEOP 05/14/2016 MAURO SHI MD Ot Z89.432 ACQUIRED ABSENCE OF LEFT FOOT 05/14/2016 MAURO SHI MD Ot Z95.828 PRESENCE OF OTHER VASCULAR IMPLANTS AND 05/14/2016 MAURO SHI MD Ot Z96.649 PRESENCE OF UNSPECIFIED ARTIFICIAL HIP J 05/20/2016 JUNIOR ORNELAS MD Ot V58. 61 ANTICOAGULANTS,LT,CURRENT USE 05/20/2016 JUNIOR ORNELAS MD Ot V58. 83 ENCOUNTER FOR THERAPEUTIC DRUG MONITORIN 05/20/2016 JUNIOR ORNELAS MD Ot V58. 61 ANTICOAGULANTS,LT,CURRENT USE 05/20/2016 JUNIOR ORNELAS MD Ot V58. 83 ENCOUNTER FOR THERAPEUTIC DRUG MONITORIN 05/20/2016 JUNIOR KWOK MD Ot V58.6 1 ANTICOAGULANTS,LT,CURRENT USE 05/20/2016 JUNIOR KWOK MD Ot V58.8 3 ENCOUNTER FOR THERAPEUTIC DRUG MONITORIN 05/20/2016 JUNIOR KWOK MD Ot V58.6 1 ANTICOAGULANTS,LT,CURRENT USE 05/20/2016 JUNIOR KWOK MD Ot V58.8 3 ENCOUNTER FOR THERAPEUTIC DRUG MONITORIN 05/20/2016 MARJORIE EDUARDO [employer] EXEC Ot 305.1 TOBACCO USE DISORDER 05/20/2016 MARJORIE EDUARDO [employer] SAL[employer] EXEC Ot 427.0 PAROX ATRIAL TACHYCARDIA 05/20/2016 MARJORIE EDUARDO [employer] EXEC Ot 443.9 PERIPH VASCULAR DIS NOS 05/20/2016 MARJORIE EDUARDO [employer] SALES EXEC Ot 4 96 CHR AIRWAY OBSTRUCT NEC 05/20/2016 DAPHNE YUSUF [employer]2B [employer]NA[employer] SALES EXEC Ot I73.9 PERIPHERAL VASCULAR DISEASE, UNSPECIFIED 05/20/2016 NAM GASPAR [employer] SAL[employer] EXEC Ot R06.02 SHORTNESS OF BREATH 05/20/2016 NAM GASPAR [employer] EXEC Ot R60.9 EDEMA, UNSPECIFIED 05/20/2016 JESSICA ALFORD FACJude, AUGIE ELI CCDS Ot R06.02 SHORTNESS OF BREATH 05/20/2016 GERALD, KETAN E GARAGEMAN Ot G47.9 SLEEP DISORDER, UNSPECIFIED 05/20/2016 KETAN DUARTE GARAGEMAN Ot J44.9 CHRONIC OBSTRUCTIVE PULMONARY DISEASE, U 05/20/2016 KETAN DUARTE GARAGEMAN Ot R05 COUGH 05/20/2016 KETAN DUARTE GARAGEMAN Ot R06.2 WHEEZING 05/20/2016 GERALD KETAN Corea GARAGEMAN Ot F17.201 NICOTINE DEPENDENCE, UNSPECIFIED, IN REM 05/20/2016 KETAN DUARTE GARAGEMAN Ot J44.9 CHRONIC OBSTRUCTIVE PULMONARY DISEASE, U 05/20/2016 GERALDKETAN GARAGEMAN Ot R05 COUGH 05/20/2016 KETAN DUARTE APRN Ot R06.2 WHEEZING 05/20/2016 LULÚ MCKEON DO Ot F41. 9 ANXIETY DISORDER, UNSPECIFIED 05/20/2016 LULÚ MCKEON DO Ot J44. 9 CHRONIC OBSTRUCTIVE PULMONARY DISEASE, U 05/20/2016 LULÚ MCKEON DO Ot R06. 02 SHORTNESS OF BREATH 05/20/2016 LULÚ MCKEON DO Ot Z72. 0 TOBACCO USE 05/20/2016 DAPHNE YUSUF Ot D50.9 IRON DEFICIENCY ANEMIA, UNSPECIFIED 05/20/2016 JANEY ALFORD, GRETEL Brannon Ot D50.9 IRON DEFICIENCY ANEMIA, UNSPECIFIED 05/20/2016 JANEY ALFORD, GRETEL Brannon Ot D50.9 IRON DEFICIENCY ANEMIA, UNSPECIFIED 05/20/2016 JANEY ALFORD, GRETEL Brannon Ot Z01.818 ENCOUNTER FOR OTHER PREPROCEDURAL EXAMIN 05/20/2016 MARLENA HURTADO Ot E11.59 TYPE 2 DIABETES MELLITUS WITH OTH CIRCUL 05/20/2016 MARLENA HURTADO Ot F17.210 NICOTINE DEPENDENCE, CIGARETTES, UNCOMPL 05/20/2016 MARLENA HURTADO Ot F41.9 ANXIETY DISORDER, UNSPECIFIED 05/20/2016 MARLENA HURTADO Ot I47.1 SUPRAVENTRICULAR TACHYCARDIA 05/20/2016 MARLENA HURTADO Ot I65.23 OCCLUSION AND STENOSIS OF BILATERAL HERNANDEZ 05/20/2016 MARLENA HURTADO Ot 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 05/20/2016 MARLENA HURTADO Ot I80.209 PHLBTS AND THOMBOPHLB OF UNSP DEEP VESSE 05/20/2016 MARLENA HURTADO Gloria Ot J44.9 CHRONIC OBSTRUCTIVE PULMONARY DISEASE, U 05/20/2016 MARLENA HURTADO Gloria Ot Z79.899 OTHER ASSISTED (CURRENT) DRUG THERAPY 05/20/2016 JESSICA ALFORD FACC, ALI FACP CCDS Ot D63.8 ANEMIA IN OTHER CHRONIC DISEASES CLASSIF 05/20/2016 JESSICA ALFORD FACC, ALI FACP CCDS Ot I47.1 SUPRAVENTRICULAR TACHYCARDIA 05/20/2016 JESSICA ALFORD FACC, ALI FACP CCDS Ot 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 05/20/2016 JESSICA ALFORD FACC, ALI FACP CCDS Ot M06.9 RHEUMATOID ARTHRITIS, UNSPECIFIED 05/20/2016 JESSICA ALFORD FACC, ALI FACP CCDS Ot M79.89 OTHER SPECIFIED SOFT TISSUE DISORDERS 05/20/2016 JESSICA ALFORD FACC, ALI FACP CCDS Ot R07.89 OTHER CHEST PAIN 05/21/2016 JESSICA ALFORD FACC, ALI FACP CCDS Ot R07.89 OTHER CHEST PAIN 05/21/2016 JESSICA ALFORD FACC, ALI FACP CCDS Ot D63.8 ANEMIA IN OTHER CHRONIC DISEASES CLASSIF 05/21/2016 JESSICA ALFORD FACC, ALI FACP CCDS Ot I47.1 SUPRAVENTRICULAR TACHYCARDIA 05/21/2016 JESSICA ALFORD FACC, ALI FACP CCDS Ot 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 05/21/2016 JESSICA ALFORD FACC, ALI FACP CCDS Ot M06.9 RHEUMATOID ARTHRITIS, UNSPECIFIED 05/21/2016 JESSICA ALFORD FACC, ALI FACP CCDS Ot M79.89 OTHER SPECIFIED SOFT TISSUE DISORDERS 05/21/2016 JESSICA ALFORD FACC, ALI FACP CCDS Ot R07.89 OTHER CHEST PAIN 05/26/2016 JESSICA ALFORD FACC, ALI FACP CCDS Ot D63.8 ANEMIA IN OTHER CHRONIC DISEASES CLASSIF 05/26/2016 JESSICA ALFORD FACC, ALI FACP CCDS Ot I47.1 SUPRAVENTRICULAR TACHYCARDIA 05/26/2016 JESSICA GUALLPAC, ALI FACP CCDS Ot 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 05/26/2016 JESSICA ALFORD FACC, ALI FACP CCDS Ot M06.9 RHEUMATOID ARTHRITIS, UNSPECIFIED 05/26/2016 JESSICA ALFORD FAC, ALI FACP CCDS Ot M79.89 OTHER SPECIFIED SOFT TISSUE DISORDERS 05/26/2016 JESSICA ALFORD FACC, ALI FACP CCDS Ot R07.89 OTHER CHEST PAIN 2016 JESSICA ALFORD FACC, ALI FACP CCDS Ot D63.8 ANEMIA IN OTHER CHRONIC DISEASES CLASSIF 2016 JESSICA ALFORD FAC, ALI FACP CCDS Ot I47.1 SUPRAVENTRICULAR TACHYCARDIA 2016 JESSICA ALFORD FAC, ALI FACP CCDS Ot 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 2016 JESSICA ALFORD FAC, ALI FACP CCDS Ot M06.9 RHEUMATOID ARTHRITIS, UNSPECIFIED 2016 JESSICA ALFORD FAC, ALI FACP CCDS Ot M79.89 OTHER SPECIFIED SOFT TISSUE DISORDERS 2016 JESSICA ALFORD FAC, ALI FACP CCDS Ot R07.89 OTHER CHEST PAIN 06/11/2016 MARLENA HURTADO Ot E11.59 TYPE 2 DIABETES MELLITUS WITH OTH CIRCUL 06/11/2016 MARLENA HURTADO Ot F17.210 NICOTINE DEPENDENCE, CIGARETTES, UNCOMPL 06/11/2016 MARLENA HURTADO Ot F41.9 ANXIETY DISORDER, UNSPECIFIED 06/11/2016 MARLENA HURTADO Ot I47.1 SUPRAVENTRICULAR TACHYCARDIA 06/11/2016 MARLENA HURTADO Ot I65.23 OCCLUSION AND STENOSIS OF BILATERAL HERNANDEZ 06/11/2016 MARLENA HURTADO Ot 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 06/11/2016 MARLENA HURTADO Ot I80.209 [facility] 06/11/2016 MARLENA HURTADO Ot J44.9 CHRONIC OBSTRUCTIVE PULMONARY DISEASE, U 06/11/2016 MARLENA HURTADO Ot Z79.899 OTHER ASSISTED (CURRENT) DRUG THERAPY 06/11/2016 JUNIOR ORNELAS MD Ot V58. 61 ANTICOAGULANTS,LT,CURRENT USE 06/11/2016 JUNIOR ORNELAS MD Ot V58. 83 ENCOUNTER FOR THERAPEUTIC DRUG MONITORIN 06/11/2016 JUNIOR ORNELAS MD Ot V58. 61 ANTICOAGULANTS,LT,CURRENT USE 06/11/2016 CECI ALFORD, JUNIOR De La Cruz Ot V58. 83 ENCOUNTER FOR THERAPEUTIC DRUG MONITORIN 06/11/2016 SUNDAR ALFORD, JUNIOR Brannon Ot V58.6 1 ANTICOAGULANTS,LT,CURRENT USE 06/11/2016 SUNDAR ALFORD, JUNIOR Brannon Ot V58.8 3 ENCOUNTER FOR THERAPEUTIC DRUG MONITORIN 06/11/2016 SUNDAR ALFORD, JUNIOR Brannon Ot V58.6 1 ANTICOAGULANTS,LT,CURRENT USE 06/11/2016 SUNDAR ALFORD, JUNIOR Brannon Ot V58.8 3 ENCOUNTER FOR THERAPEUTIC DRUG MONITORIN 06/11/2016 MARJORIE EDUARDO L B2B MANAGED SERVICE SALES EXEC Ot 305.1 TOBACCO USE DISORDER 06/11/2016 TARA EDUARDOHER L B2B MANAGED SERVICE SALES EXEC Ot 427.0 PAROX ATRIAL TACHYCARDIA 06/11/2016 ALESHA MARJORIE L B2B MANAGED SERVICE SALES EXEC Ot 443.9 PERIPH VASCULAR DIS NOS 06/11/2016 TARA EDUARDOHER L B2B MANAGED SERVICE SALES EXEC Ot 4 96 CHR AIRWAY OBSTRUCT NEC 06/11/2016 DAPHNE YUSUF B2B MANAGED SERVICE SALES EXEC Ot I73.9 PERIPHERAL VASCULAR DISEASE, UNSPECIFIED 06/11/2016 NAM GASPAR [employer] MANA[employer]ED [employer] SALES EXEC Ot R06.02 SHORTNESS OF BREATH 06/11/2016 NAM GASPAR [employer] MA[employer] SALES EXEC Ot R60.9 EDEMA, UNSPECIFIED 06/11/2016 JESSICA ALFORD FACC, AUGIE ELI CCDS Ot R06.02 SHORTNESS OF BREATH 06/11/2016 KETAN DUARTE GARAGEMAN Ot G47.9 SLEEP DISORDER, UNSPECIFIED 06/11/2016 KETAN DUARTE GARAGEMAN Ot J44.9 CHRONIC OBSTRUCTIVE PULMONARY DISEASE, U 06/11/2016 KETAN DUARTE GARAGEMAN Ot R05 COUGH 06/11/2016 KETAN DUARTE GARAGEMAN Ot R06.2 WHEEZING 06/11/2016 KETAN DUARTE GARAGEMAN Ot F17.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 9 ANXIETY DISORDER, UNSPECIFIED 06/11/2016 LULÚ MCKEON DO Ot J44. 9 CHRONIC OBSTRUCTIVE PULMONARY DISEASE, U 06/11/2016 LULÚ MCKEON DO Ot R06. 02 SHORTNESS OF BREATH 06/11/2016 MIKE IYERLULÚ Ot Z72. 0 TOBACCO USE 06/11/2016 MADELINDAPHNEP Ot D50.9 IRON DEFICIENCY ANEMIA, UNSPECIFIED 06/11/2016 JANEY ALFORD, GRETEL Brannon Ot D50.9 IRON DEFICIENCY ANEMIA, UNSPECIFIED 06/11/2016 JANEY ALFORD, GRETEL Brannon Ot D50.9 IRON DEFICIENCY ANEMIA, UNSPECIFIED 06/11/2016 JANEY ALFORD, GRETEL Brannon Ot Z01.818 ENCOUNTER FOR OTHER PREPROCEDURAL EXAMIN 06/11/2016 MARLENA HURTADO Ot E11.59 TYPE 2 DIABETES MELLITUS WITH OTH CIRCUL 06/11/2016 MARLENA HURTADO Ot F17.210 NICOTINE DEPENDENCE, CIGARETTES, UNCOMPL 06/11/2016 MARLENA HURTADO Ot F41.9 ANXIETY DISORDER, UNSPECIFIED 06/11/2016 MARLENA HURTADO Ot I47.1 SUPRAVENTRICULAR TACHYCARDIA 06/11/2016 MARLENA HURTADO Ot I65.23 OCCLUSION AND STENOSIS OF BILATERAL HERNANDEZ 06/11/2016 MARLENA HURTADO Ot 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 06/11/2016 MARLENA HURTADO Ot I80.209 PHLBTS AND THOMBOPHLB OF UNSP DEEP VESSE 06/11/2016 MARLENA HURTADO Ot J44.9 CHRONIC OBSTRUCTIVE PULMONARY DISEASE, U 06/11/2016 MARLENA HURTADO Ot Z79.899 OTHER ASSISTED (CURRENT) DRUG THERAPY 06/11/2016 JESSICA ALFORD FACC, ALI FACP CCDS Ot D63.8 ANEMIA IN OTHER CHRONIC DISEASES CLASSIF 06/11/2016 JESSICA ALFORD FACC, ALI FACP CCDS Ot I47.1 SUPRAVENTRICULAR TACHYCARDIA 06/11/2016 JESSICA ALFORD FACC, ALI FACP CCDS Ot 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 06/11/2016 JESSICA ALFORD FACC, ALI FACP CCDS Ot M06.9 RHEUMATOID ARTHRITIS, UNSPECIFIED 06/11/2016 JESSICA ALFORD FACC, ALI FACP CCDS Ot M79.89 OTHER SPECIFIED SOFT TISSUE DISORDERS 06/11/2016 JESSICA MD FACC, ALI FACP CCDS Ot R07.89 OTHER CHEST PAIN 06/11/2016 JESSICA ALFORD FACC, ALI FACP CCDS Ot D63.8 ANEMIA IN OTHER CHRONIC DISEASES CLASSIF 06/11/2016 JESSICA ALFORD FACC, ALI FACP CCDS Ot I47.1 SUPRAVENTRICULAR TACHYCARDIA 06/11/2016 JESSICA ALFORD FACC, ALI FACP CCDS Ot 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 06/11/2016 JESSICA ALFORD FACC, ALI FACP CCDS Ot M06.9 RHEUMATOID ARTHRITIS, UNSPECIFIED 06/11/2016 JESSICA ALFORD FACC, ALI FACP CCDS Ot M79.89 OTHER SPECIFIED SOFT TISSUE DISORDERS 06/11/2016 JESSICA ALFORD FACC, ALI FACP CCDS Ot R07.89 OTHER CHEST PAIN 06/11/2016 JESSICA ALFORD FACC, ALI FACP CCDS Ot D63.8 ANEMIA IN OTHER CHRONIC DISEASES CLASSIF 06/11/2016 JESSICA ALFORD FACC, ALI FACP CCDS Ot I47.1 SUPRAVENTRICULAR TACHYCARDIA 06/11/2016 JESSICA ALFORD FACC, ALI FACP CCDS Ot 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 06/11/2016 JESSICA ALFORD FACC, ALI FACP CCDS Ot M06.9 RHEUMATOID ARTHRITIS, UNSPECIFIED 06/11/2016 JESSICA ALFORD FACC, ALI FACP CCDS Ot M79.89 OTHER SPECIFIED SOFT TISSUE DISORDERS 06/11/2016 JESSICA GUALLPAC, ALI FACP CCDS Ot R07.89 OTHER CHEST PAIN 06/13/2016 JAMES CARTAGENA MD Ot A41 .9 SEPSIS, UNSPECIFIED ORGANISM 06/13/2016 JAMES CARTAGENA MD Ot E86 .1 HYPOVOLEMIA 06/13/2016 JAMES CARTAGENA MD Ot F32 .9 MAJOR DEPRESSIVE DISORDER, SINGLE EPISOD 06/13/2016 JAMES CARTAGENA MD, Ot F41 .9 ANXIETY DISORDER, UNSPECIFIED 06/13/2016 JAMES CARTAGENA MD Ot I69.319 UNSP SYMPTOMS AND SIGNS W COGN FNCTNS FO 06/13/2016 JAMES CARTAGENA MD Ot I69.328 OTH SPEECH/LANG DEFICITS FOLLOWING CEREB 06/13/2016 JAMES CARTAGENA MD Ot I69.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 FOLLOWING CEREBRAL INFRC AFF RI 06/13/2016 JAMES CARTAGENA MD, Ot J44 .0 CHRONIC OBSTRUCTIVE PULMON DISEASE W ACU 06/13/2016 JAMES CARTAGENA MD, Ot J69 .0 PNEUMONITIS DUE TO INHALATION OF FOOD AN 06/13/2016 JAMES CARTAGENA MD, Ot M06 .9 RHEUMATOID ARTHRITIS, UNSPECIFIED 06/13/2016 JAMES CARTAGENA MD, Ot R19 .7 DIARRHEA, UNSPECIFIED 06/13/2016 JAMES CARTAGENA MD, Ot Z89.432 ACQUIRED ABSENCE OF LEFT FOOT 06/13/2016 JAMES CARTAGENA MD, Ot Z99.81 DEPENDENCE ON SUPPLEMENTAL OXYGEN 06/16/2016 JAMES CARTAGENA MD, Ot A41 .9 SEPSIS, UNSPECIFIED ORGANISM 06/16/2016 JAMES CARTAGENA MD, Ot E86 .1 HYPOVOLEMIA 06/16/2016 JAMES CARTAGENA MD, Ot E87 .6 HYPOKALEMIA 06/16/2016 JAMES CARTAGENA MD Ot F03.90 UNSPECIFIED DEMENTIA WITHOUT BEHAVIORAL 06/16/2016 JAMES CARTAGENA MD Ot F32 .9 MAJOR DEPRESSIVE DISORDER, SINGLE EPISOD 06/16/2016 JAMES CARTAGENA MD, Ot F41 .9 ANXIETY DISORDER, UNSPECIFIED 06/16/2016 JAMES CARTAGENA MD, Ot I69.319 UNSP SYMPTOMS AND SIGNS W COGN FNCTNS FO 06/16/2016 JAMES CARTAGENA MD, Ot I69.328 OTH SPEECH/LANG DEFICITS FOLLOWING CEREB 06/16/2016 JAMES CARTAGENA MD, Ot I69.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 FOLLOWING CEREBRAL INFRC AFF RI 06/16/2016 JAMES CARTAGENA MD, Ot J44 .0 CHRONIC OBSTRUCTIVE PULMON DISEASE W ACU 06/16/2016 JAMES CARTAGENA MD, Ot J69 .0 PNEUMONITIS DUE TO INHALATION OF FOOD AN 06/16/2016 JAMES CARTAGENA MD, Ot M06 .9 RHEUMATOID ARTHRITIS, UNSPECIFIED 06/16/2016 JAMES CARTAGENA MD, Ot R19 .7 DIARRHEA, UNSPECIFIED 06/16/2016 JAMES CARTAGENA MD, Ot Z89.432 ACQUIRED ABSENCE OF LEFT FOOT 06/16/2016 JAMES CARTAGENA MD Ot Z99.81 DEPENDENCE ON SUPPLEMENTAL OXYGEN 06/19/2016 JESSICA ALFORD FACC, ALI FACP CCDS Ot D63.8 ANEMIA IN OTHER CHRONIC DISEASES CLASSIF 06/19/2016 JESSICA GUALLPA, ALI FACP CCDS Ot I47.1 SUPRAVENTRICULAR TACHYCARDIA 06/19/2016 JESSICA GUALLPA, ALI FACP CCDS Ot 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 06/19/2016 JESSICA GUALLPA, ALI FACP CCDS Ot M06.9 RHEUMATOID ARTHRITIS, UNSPECIFIED 06/19/2016 JESSICA ALFORD [facility], ALI FACP CCDS Ot M79.89 OTHER SPECIFIED SOFT TISSUE DISORDERS 06/19/2016 JESSICA GUALLPA, ALI FACP CCDS Ot R07.89 OTHER CHEST PAIN 07/16/2016 MARLENA HURTADO Ot E11.59 TYPE 2 DIABETES MELLITUS WITH OTH CIRCUL 07/16/2016 MARLENA HURTADO Ot F17.210 NICOTINE DEPENDENCE, CIGARETTES, UNCOMPL 07/16/2016 MARLENA HURTADO Ot F41.9 ANXIETY DISORDER, UNSPECIFIED 07/16/2016 MARLENA HURTADO Ot I47.1 SUPRAVENTRICULAR TACHYCARDIA 07/16/2016 MARLENA HURTADO Ot I65.23 OCCLUSION AND STENOSIS OF BILATERAL HERNANDEZ 07/16/2016 MARLENA HURTADO Ot 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 07/16/2016 MARLENA HURTADO Ot I80.209 PHLBTS AND THOMBOPHLB OF [facility] DEEP VESSE 07/16/2016 MARLENA HURTADO Ot J44.9 CHRONIC OBSTRUCTIVE PULMONARY DISEASE, U 07/16/2016 MARLENA HURTADO Ot Z79.899 OTHER ASSISTED (CURRENT) DRUG THERAPY 07/25/2016 JAMES CARTAGENA MD Ot A04 .7 ENTEROCOLITIS DUE TO CLOSTRIDIUM DIFFICI 07/25/2016 JAMES CARTAGENA MD Ot E78 .5 HYPERLIPIDEMIA, UNSPECIFIED 07/25/2016 JAMES CARTAGENA MD Ot E86 .0 DEHYDRATION 07/25/2016 JAMES CARTAGENA MD Ot F32 .9 MAJOR DEPRESSIVE DISORDER, SINGLE EPISOD 07/25/2016 JAMES CARTAGENA MD Ot F41 .9 ANXIETY DISORDER, UNSPECIFIED 07/25/2016 JAMES CARTAGENA MD, Ot G47.00 INSOMNIA, UNSPECIFIED 07/25/2016 JAMES CARTAGENA MD Ot I69.322 DYSARTHRIA FOLLOWING CEREBRAL INFARCTION 07/25/2016 JAMES CARTAGENA MD Ot J44 .9 CHRONIC OBSTRUCTIVE PULMONARY DISEASE, U 07/25/2016 JAMES CARTAGENA MD, Ot M06 .9 RHEUMATOID ARTHRITIS, UNSPECIFIED 07/25/2016 JAMES CARTAGENA MD, Ot M25.561 PAIN IN RIGHT KNEE 07/25/2016 JAMES CARTAGENA MD Ot Z87.891 PERSONAL HISTORY OF NICOTINE DEPENDENCE 07/25/2016 JAMES CARTAGENA MD Ot Z89.432 ACQUIRED ABSENCE OF LEFT FOOT 07/25/2016 JAMES CARTAGENA MD Ot Z95.820 PERIPHERAL VASCULAR ANGIOPLASTY STATUS W 07/25/2016 JAMES CARTAGENA MD Ot Z96.649 PRESENCE OF UNSPECIFIED ARTIFICIAL HIP J 07/25/2016 JAMES CARTAGENA MD Ot Z99.81 DEPENDENCE ON SUPPLEMENTAL OXYGEN 07/25/2016 JAMES CARTAGENA MD Ot A04 .7 ENTEROCOLITIS DUE TO CLOSTRIDIUM DIFFICI 07/25/2016 JAMES CARTAGENA MD Ot E78 .5 HYPERLIPIDEMIA, UNSPECIFIED 07/25/2016 JAMES CARTAGENA MD Ot E86 .0 DEHYDRATION 07/25/2016 JAMES CARTAGENA MD Ot F03.90 UNSPECIFIED DEMENTIA WITHOUT BEHAVIORAL 07/25/2016 JAMES CARTAGENA MD Ot F32 .9 MAJOR DEPRESSIVE DISORDER, SINGLE EPISOD 07/25/2016 JAMES CARTAGENA MD, Ot F41 .9 ANXIETY DISORDER, UNSPECIFIED 07/25/2016 JAMES CARTAGENA MD Ot G47.00 INSOMNIA, UNSPECIFIED 07/25/2016 JAMES CARTAGENA MD Ot I69.322 DYSARTHRIA FOLLOWING CEREBRAL INFARCTION 07/25/2016 JAMES CARTAGENA MD Ot I69.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 FOLLOWING CEREBRAL INFRC AFF RI 07/25/2016 JAMES CARTAGENA MD Ot J44 .1 CHRONIC OBSTRUCTIVE PULMONARY DISEASE W 07/25/2016 JAMES CARTAGENA MD, Ot J44 .9 CHRONIC OBSTRUCTIVE PULMONARY DISEASE, U 07/25/2016 JAMES CARTAGENA MD, Ot J98.11 ATELECTASIS 07/25/2016 JAMES CARTAGENA MD, Ot M06 .9 RHEUMATOID ARTHRITIS, UNSPECIFIED 07/25/2016 JAMES CARTAGENA MD, Ot M25.561 PAIN IN RIGHT KNEE 07/25/2016 JAMES CARTAGENA MD Ot R29 .6 REPEATED FALLS 07/25/2016 JAMES CARTAGENA MD, Ot R53.81 OTHER MALAISE 07/25/2016 JAMES CARTAGENA MD, Ot Z87.891 PERSONAL HISTORY OF NICOTINE DEPENDENCE 07/25/2016 JAMES CARTAGENA MD Ot Z89.432 ACQUIRED ABSENCE OF LEFT FOOT 07/25/2016 JAMES CARTAGENA MD Ot Z95.820 PERIPHERAL VASCULAR ANGIOPLASTY STATUS W 07/25/2016 JAMES CARTAGENA MD, Ot Z96.649 PRESENCE OF UNSPECIFIED ARTIFICIAL HIP J 07/25/2016 JAMES CARTAGENA MD, Ot Z99.81 DEPENDENCE ON SUPPLEMENTAL OXYGEN 07/27/2016 MARLENA HURTADO Ot D50.8 OTHER IRON DEFICIENCY ANEMIAS 07/27/2016 MARLENA HURTADO Ot D63.8 ANEMIA IN OTHER CHRONIC DISEASES CLASSIF 07/27/2016 MARLENA HURTADO Ot E11.59 TYPE 2 DIABETES MELLITUS WITH OTH CIRCUL 07/27/2016 MARLENA HURTADO Ot F17.210 NICOTINE DEPENDENCE, CIGARETTES, UNCOMPL 07/27/2016 MARLENA HURTADO Ot F41.9 ANXIETY DISORDER, UNSPECIFIED 07/27/2016 MARLENA HURTADO Ot I47.1 SUPRAVENTRICULAR TACHYCARDIA 07/27/2016 MARLENA HURTADO Ot I65.23 OCCLUSION AND STENOSIS OF BILATERAL HERNANDEZ 07/27/2016 MARLENA HURTADO Ot 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 07/27/2016 MARLENA HURTADO Ot I80.209 PHLBTS AND THOMBOPHLB OF UNSP DEEP VESSE 07/27/2016 MARLENA HURTADO Ot J44.9 CHRONIC OBSTRUCTIVE PULMONARY DISEASE, U 07/27/2016 MARLENA HURTADO Ot Z79.899 OTHER ASSISTED (CURRENT) DRUG THERAPY 07/28/2016 MARLENA HURTADO Ot D50.8 OTHER IRON DEFICIENCY ANEMIAS 07/28/2016 MARLENA HURTADO Ot D63.8 ANEMIA IN OTHER CHRONIC DISEASES CLASSIF 07/28/2016 MARLENA HURTADO Ot E11.59 TYPE 2 DIABETES MELLITUS WITH OTH CIRCUL 07/28/2016 MARLENA HURTADO Ot F17.210 NICOTINE DEPENDENCE, CIGARETTES, UNCOMPL 07/28/2016 MARLENA HURTADO Ot F41.9 ANXIETY DISORDER, UNSPECIFIED 07/28/2016 MARLENA HURTADO Ot I47.1 SUPRAVENTRICULAR TACHYCARDIA 07/28/2016 MARLENA HURTADO Ot I65.23 OCCLUSION AND STENOSIS OF BILATERAL HER[place]NDEZ 07/28/2016 MARLENA HURTADO Gloria Ot 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 07/28/2016 MARLENA HURTADO Gloria Ot I80.209 PHLBTS AND THOMBOPHLB OF UNSP DEEP VESSE 07/28/2016 MARLENA HURTADO Gloria Ot J44.9 CHRONIC OBSTRUCTIVE PULMONARY DISEASE, U 07/28/2016 MARLENA HURTADO Ot 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 08/25/2016 JANEY ALFORD, GRETEL Brannon Ot A04.7 ENTEROCOLITIS DUE TO CLOSTRIDIUM DIFFICI 08/26/2016 JANEY ALFORD, GRETEL Brannon Ot A04.7 ENTEROCOLITIS DUE TO CLOSTRIDIUM DIFFICI 09/17/2016 JANEY ALFORD, GRETEL Brannon Ot A04.7 ENTEROCOLITIS DUE TO CLOSTRIDIUM DIFFICI 10/02/2016 JANEY ALFORD, GRETEL Brannon Ot A04.7 ENTEROCOLITIS DUE TO CLOSTRIDIUM DIFFICI 11/03/2016 DAPHNE YUSUF Ot I69.354 HEMIPLGA FOLLOWING CEREBRAL INFRC AFFECT 11/20/2016 KETAN DUARTE APRN Ot R09.02 HYPOXEMIA 11/20/2016 KETAN DUARTE APRN Ot R91.1 SOLITARY PULMONARY NODULE 11/20/2016 KETAN DUARTE APRN Ot Z72.0 TOBACCO USE 12/05/2016 DAPHNE YUSUF Ot I69.354 HEMIPLGA FOLLOWING CEREBRAL INFRC AFFECT 12/16/2016 LULÚ MCKEON DO Ot F41. 9 ANXIETY DISORDER, UNSPECIFIED 12/16/2016 LULÚ MCKEON DO Ot J43. 8 OTHER EMPHYSEMA 12/16/2016 LULÚ MCKEON DO Ot R06. 02 SHORTNESS OF BREATH 12/17/2016 JUNIOR ORNELAS MD Ot V58. 61 ANTICOAGULANTS,LT,CURRENT USE 12/17/2016 JUNIOR ORNELAS MD Ot V58. 83 ENCOUNTER FOR THERAPEUTIC DRUG MONITORIN 12/17/2016 CECI ALFORD, JUNIOR De La Cruz Ot V58. 61 ANTICOAGULANTS,LT,CURRENT USE 12/17/2016 CECI ALFORD, JUNIOR De La Cruz Ot V58. 83 ENCOUNTER FOR THERAPEUTIC DRUG MONITORIN 12/17/2016 SUNDAR ALFORD, JUNIOR Brannon Ot V58.6 1 ANTICOAGULANTS,LT,CURRENT USE 12/17/2016 SUNDAR ALFORD, JUNIOR Brannon Ot V58.8 3 ENCOUNTER FOR THERAPEUTIC DRUG MONITORIN 12/17/2016 SUNDAR ALFORD, JUNIOR Brannon Ot V58.6 1 ANTICOAGULANTS,LT,CURRENT USE 12/17/2016 SUNDAR ALFORD, JUNIOR Brannon Ot V58.8 3 ENCOUNTER FOR THERAPEUTIC DRUG MONITORIN 12/17/2016 MARJORIE EDUARDO [employer] EXEC Ot 305.1 TOBACCO USE DISORDER 12/17/2016 MARJORIE EDUARDO L [employer] EXEC Ot 427.0 PAROX ATRIAL TACHYCARDIA 12/17/2016 TARA EDUARDOHER L [employer] EXEC Ot 443.9 PERIPH VASCULAR DIS NOS 12/17/2016 MARJORIE EDUARDO [employer] SALES EXEC Ot 4 96 CHR AIRWAY OBSTRUCT NEC 12/17/2016 DAPHNE YUSUF [employer] MANA[employer] SALES EXEC Ot I73.9 PERIPHERAL VASCULAR DISEASE, UNSPECIFIED 12/17/2016 NAM GASPAR [employer] MA[employer]ED [employer] SALES EXEC Ot R06.02 SHORTNESS OF BREATH 12/17/2016 NAM GASPAR [employer] EXEC Ot R60.9 EDEMA, UNSPECIFIED 12/17/2016 JESSICA ALFORD FAC, AUGIE ELI CCDS Ot R06.02 SHORTNESS OF BREATH 12/17/2016 KETAN DUARTE GARAGEMAN Ot G47.9 SLEEP DISORDER, UNSPECIFIED 12/17/2016 KETAN DUARTE GARAGEMAN Ot J44.9 CHRONIC OBSTRUCTIVE PULMONARY DISEASE, U 12/17/2016 KETAN DUARTE GARAGEMAN Ot R05 COUGH 12/17/2016 KETAN DUARTE GARAGEMAN Ot R06.2 WHEEZING 12/17/2016 KETAN DUARTE GARAGEMAN Ot F17.201 NICOTINE DEPENDENCE, UNSPECIFIED, IN REM 12/17/2016 KETAN DUARTE GARAGEMAN Ot J44.9 CHRONIC OBSTRUCTIVE PULMONARY DISEASE, U 12/17/2016 KETAN DUARTE GARAGEMAN Ot R05 COUGH 12/17/2016 KETAN DUARTE GARAGEMAN Ot R06.2 WHEEZING 12/17/2016 LULÚ MCKEON DO Ot F41. 9 ANXIETY DISORDER, UNSPECIFIED 12/17/2016 LULÚ MCKEON DO Ot J44. 9 CHRONIC OBSTRUCTIVE PULMONARY DISEASE, U 12/17/2016 MIKELULÚ DUKES DO Ot R06. 02 SHORTNESS OF BREATH 12/17/2016 MIKELULÚ DUKES DO Ot Z72. 0 TOBACCO USE 12/17/2016 DAPHNE YUSUF Ot D50.9 IRON DEFICIENCY ANEMIA, UNSPECIFIED 12/17/2016 JANEY ALFORD, GRETEL Brannon Ot D50.9 IRON DEFICIENCY ANEMIA, UNSPECIFIED 12/17/2016 JANEY ALFORD, GRETEL Brannon Ot D50.9 IRON DEFICIENCY ANEMIA, UNSPECIFIED 12/17/2016 JANEY ALFORD, GRETEL Brannon Ot Z01.818 ENCOUNTER FOR OTHER PREPROCEDURAL EXAMIN 12/17/2016 JESSICA ALFORD FACC, ALI FACP CCDS Ot D63.8 ANEMIA IN OTHER CHRONIC DISEASES CLASSIF 12/17/2016 JESSICA ALFORD FACC, ALI FACP CCDS Ot I47.1 SUPRAVENTRICULAR TACHYCARDIA 12/17/2016 JESSICA ALFORD FACC, ALI FACP CCDS Ot 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 12/17/2016 JESSICA ALFORD FACC, ALI FACP CCDS Ot M06.9 RHEUMATOID ARTHRITIS, UNSPECIFIED 12/17/2016 JESSICA ALFORD FACC, ALI FACP CCDS Ot M79.89 OTHER SPECIFIED SOFT TISSUE DISORDERS 12/17/2016 JESSICA ALFORD FACC, ALI FACP CCDS Ot R07.89 OTHER CHEST PAIN 12/17/2016 JESSICA ALFORD FACC, ALI FACP CCDS Ot D63.8 ANEMIA IN OTHER CHRONIC DISEASES CLASSIF 12/17/2016 JESSICA ALFORD FACC, ALI FACP CCDS Ot I47.1 SUPRAVENTRICULAR TACHYCARDIA 12/17/2016 JESSICA ALFORD FACC, ALI FACP CCDS Ot 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 12/17/2016 JESSICA ALFORD FACC, ALI FACP CCDS Ot M06.9 RHEUMATOID ARTHRITIS, UNSPECIFIED 12/17/2016 JESSICA ALFORD FACC, ALI FACP CCDS Ot M79.89 OTHER SPECIFIED SOFT TISSUE DISORDERS 12/17/2016 JESSICA ALFORD FACC, ALI FACP CCDS Ot R07.89 OTHER CHEST PAIN 12/17/2016 MARLENA HURTADO Ot E11.59 TYPE 2 DIABETES MELLITUS WITH OTH CIRCUL 12/17/2016 GENESIS MARLENA Castro Ot F17.210 NICOTINE DEPENDENCE, CIGARETTES, UNCOMPL 12/17/2016 GENESIS MARLENA Castro Ot F41.9 ANXIETY DISORDER, UNSPECIFIED 12/17/2016 GENESIS MARLENA Castro Ot I47.1 SUPRAVENTRICULAR TACHYCARDIA 12/17/2016 GENESIS MARLENA Castro Ot I65.23 OCCLUSION AND STENOSIS OF BILATERAL HERNANDEZ 12/17/2016 GENESISMARLENA Ot 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 12/17/2016 GENESISMARLENA Ot I80.209 PHLBTS AND THOMBOPHLB OF UNSP DEEP VESSE 12/17/2016 MARLENA HURTADO Ot J44.9 CHRONIC OBSTRUCTIVE PULMONARY DISEASE, U 12/17/2016 MARLENA HURTADO Ot 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 9 ANXIETY DISORDER, UNSPECIFIED 12/17/2016 LULÚ MCKEON DO Ot J43. 8 OTHER EMPHYSEMA 12/17/2016 LULÚ MCKEON DO Ot R06. 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 12/17/2016 MARLENA HURTADO Ot I80.209 PHLBTS AND THOMBOPHLB OF UNSP DEEP VESSE 12/17/2016 MARLENA HURTADO Ot J44.9 CHRONIC OBSTRUCTIVE PULMONARY DISEASE, U 12/17/2016 MARLENA HURTADO Ot 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 12/17/2016 SANTY ALFORD, SABINO Cruz Ot Z01.812 ENCOUNTER FOR PREPROCEDURAL LABORATORY E 12/17/2016 SABINO MADERA MD Ot Z01.812 ENCOUNTER FOR PREPROCEDURAL LABORATORY E 12/17/2016 SABINO MADERA MD Ot Z01.812 ENCOUNTER FOR PREPROCEDURAL LABORATORY E 12/17/2016 SANTY ALFORD, SABINO Cruz Ot Z01.812 ENCOUNTER FOR PREPROCEDURAL LABORATORY E 12/17/2016 SABINO MADERA MD Ot M17.11 UNILATERAL PRIMARY OSTEOARTHRITIS, RIGHT 12/17/2016 SABINO MADERA MD Ot R53.83 OTHER FATIGUE 12/17/2016 SABINO MADERA MD Ot Z01.810 ENCOUNTER FOR PREPROCEDURAL CARDIOVASCUL 12/17/2016 SABINO MADERA MD Ot Z01.811 ENCOUNTER FOR PREPROCEDURAL RESPIRATORY 12/17/2016 SABINO MADERA MD Ot Z01.812 ENCOUNTER FOR PREPROCEDURAL LABORATORY E 12/17/2016 SABINO MADERA MD Ot Z11.2 ENCOUNTER FOR SCREENING FOR OTHER BACTER 12/18/2016 KETAN DUARET APRN Ot R09.02 HYPOXEMIA 12/18/2016 KETAN DUARTE APRN Ot R91.1 SOLITARY PULMONARY NODULE 12/18/2016 KETAN DUARTE APRN Ot Z72.0 TOBACCO USE 12/22/2016 KETAN DUARTE APRN Ot R09.02 HYPOXEMIA 12/22/2016 KETAN DUARTE APRN Ot R91.1 SOLITARY PULMONARY NODULE 12/22/2016 KETAN DUARTE APRN Ot Z72.0 TOBACCO USE 12/23/2016 DAPHNE YUSUF Ot I69.354 HEMIPLGA FOLLOWING CEREBRAL INFRC AFFECT 12/27/2016 SABINO MADERA MD Ot D64.9 ANEMIA, UNSPECIFIED 12/27/2016 SABINO MADERA MD, Ot E78.5 HYPERLIPIDEMIA, UNSPECIFIED 12/27/2016 SABINO MADERA MD, Ot F03.90 UNSPECIFIED DEMENTIA WITHOUT BEHAVIORAL 12/27/2016 SABINO MADERA MD, Ot F32.9 MAJOR DEPRESSIVE DISORDER, SINGLE EPISOD 12/27/2016 SABINO MADERA MD, Ot F41.9 ANXIETY DISORDER, UNSPECIFIED 12/27/2016 SABINO MADERA MD, Ot G47.00 INSOMNIA, UNSPECIFIED 12/27/2016 SABINO MADERA MD, Ot G57.92 UNSPECIFIED MONONEUROPATHY OF LEFT LOWER 12/27/2016 SABINO MADERA MD, Ot G89.29 OTHER CHRONIC PAIN 12/27/2016 SABINO MADERA MD, Ot I1 0 ESSENTIAL (PRIMARY) HYPERTENSION 12/27/2016 SABINO MADERA MD, Ot I48.91 UNSPECIFIED ATRIAL FIBRILLATION 12/27/2016 SABINO MADERA MD, Ot I69.320 APHASIA FOLLOWING CEREBRAL INFARCTION 12/27/2016 SABINO MADERA MD Ot I69.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 FOLLOWING CEREBRAL INFRC AFF RI 12/27/2016 SABINO MADERA MD, Ot I70.209 UNSP ATHSCL [place] ARTERIES OF EXTREMITI 12/27/2016 SABINO MADERA MD, Ot J43.9 EMPHYSEMA, UNSPECIFIED 12/27/2016 SABINO MADERA MD, Ot K21.9 GASTRO-ESOPHAGEAL REFLUX DISEASE WITHOUT 12/27/2016 SABINO MADERA MD, Ot M17.11 UNILATERAL PRIMARY OSTEOARTHRITIS, RIGHT 12/27/2016 SABINO MADERA MD Ot Z85.828 PERSONAL HISTORY OF OTHER MALIGNANT NEOP 12/27/2016 SABINO MADERA MD, Ot Z87.891 PERSONAL HISTORY OF NICOTINE DEPENDENCE 12/27/2016 SABINO MADERA MD, Ot Z89.432 ACQUIRED ABSENCE OF LEFT FOOT 12/27/2016 SABINO MADERA MD, Ot Z95.820 PERIPHERAL VASCULAR ANGIOPLASTY STATUS W 12/27/2016 SABINO MADERA MD, Ot Z95.828 PRESENCE OF OTHER VASCULAR IMPLANTS AND 12/27/2016 SABINO MADERA MD, Ot Z99.81 DEPENDENCE ON SUPPLEMENTAL OXYGEN 12/29/2016 SABINO MADERA MD, Ot D64.9 ANEMIA, UNSPECIFIED 12/29/2016 SABINO MADERA MD, Ot E78.5 HYPERLIPIDEMIA, UNSPECIFIED 12/29/2016 SABINO MADERA MD, Ot F03.90 UNSPECIFIED DEMENTIA WITHOUT BEHAVIORAL 12/29/2016 SABINO MADERA MD, Ot F32.9 MAJOR DEPRESSIVE DISORDER, SINGLE EPISOD 12/29/2016 SABINO MADERA MD, Ot F41.9 ANXIETY DISORDER, UNSPECIFIED 12/29/2016 SABINO MADERA MD, Ot G47.00 INSOMNIA, UNSPECIFIED 12/29/2016 SABINO MADERA MD, Ot G57.92 UNSPECIFIED MONONEUROPATHY OF LEFT LOWER 12/29/2016 SABINO MADERA MD, Ot G89.29 OTHER CHRONIC PAIN 12/29/2016 SABINO MADERA MD, Ot I1 0 ESSENTIAL (PRIMARY) HYPERTENSION 12/29/2016 SABINO MADERA MD, Ot I47.1 SUPRAVENTRICULAR TACHYCARDIA 12/29/2016 SABINO MADERA MD, Ot I48.91 UNSPECIFIED ATRIAL FIBRILLATION 12/29/2016 SABINO MADERA MD Ot I69.320 APHASIA FOLLOWING CEREBRAL INFARCTION 12/29/2016 SABINO MADERA MD, Ot I69.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 FOLLOWING CEREBRAL INFRC AFF RI 12/29/2016 SABINO MADERA MD, Ot I70.209 UNSP ATHSCL [place] ARTERIES OF [facility] 12/29/2016 SABINO MADERA MD, Ot J43.9 EMPHYSEMA, UNSPECIFIED 12/29/2016 SABINO MADERA MD, Ot K21.9 GASTRO-ESOPHAGEAL REFLUX DISEASE WITHOUT 12/29/2016 SABINO MADERA MD, Ot M17.11 UNILATERAL PRIMARY OSTEOARTHRITIS, RIGHT 12/29/2016 SABINO MADERA MD Ot Z85.828 PERSONAL HISTORY OF OTHER MALIGNANT NEOP 12/29/2016 SABINO MADERA MD, Ot Z87.891 PERSONAL HISTORY OF NICOTINE DEPENDENCE 12/29/2016 SABINO MADERA MD, Ot Z89.432 ACQUIRED ABSENCE OF LEFT FOOT 12/29/2016 SABINO MADERA MD, Ot Z95.820 PERIPHERAL VASCULAR ANGIOPLASTY STATUS W 12/29/2016 SABINO MADERA MD, Ot Z95.828 PRESENCE OF OTHER VASCULAR IMPLANTS AND 12/29/2016 SABINO MADERA MD, Ot Z99.81 DEPENDENCE ON SUPPLEMENTAL OXYGEN 01/08/2017 LULÚ MCKEON DO Ot F41. 9 ANXIETY DISORDER, UNSPECIFIED 01/08/2017 LULÚ MCKEON DO Ot J43. 8 OTHER EMPHYSEMA 01/08/2017 LULÚ MCKEON DO Ot R06. 02 SHORTNESS OF BREATH 01/09/2017 ALPESH LUNA MD Ot A41 .9 SEPSIS, UNSPECIFIED ORGANISM 01/09/2017 ALPESH LUNA MD Ot D62 ACUTE POSTHEMORRHAGIC ANEMIA 01/09/2017 ALPESH LUNA MD Ot D63 .8 ANEMIA IN OTHER CHRONIC DISEASES CLASSIF 01/09/2017 ALPESH LUNA MD Ot D72.829 ELEVATED WHITE BLOOD CELL COUNT, UNSPECI 01/09/2017 ALPESH LUNA MD Ot E78 .5 HYPERLIPIDEMIA, UNSPECIFIED 01/09/2017 ALPESH LUNA MD Ot E87 .6 HYPOKALEMIA 01/09/2017 ALPESH LUNA MD Ot F03.90 UNSPECIFIED DEMENTIA WITHOUT BEHAVIORAL 01/09/2017 ALPESH LUNA MD Ot F32 .9 MAJOR DEPRESSIVE DISORDER, SINGLE EPISOD 01/09/2017 ALPESH LUNA MD Ot F41 .9 ANXIETY DISORDER, UNSPECIFIED 01/09/2017 ALPESH LUNA MD Ot I10 ESSENTIAL (PRIMARY) HYPERTENSION 01/09/2017 ALPESH LUNA MD Ot I69.320 APHASIA FOLLOWING CEREBRAL INFARCTION 01/09/2017 ALPESH LUNA MD Ot I69.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 FOLLOWING CEREBRAL INFRC AFF RI 01/09/2017 ALPESH LUNA MD Ot J18 .9 PNEUMONIA, UNSPECIFIED ORGANISM 01/09/2017 ALPESH LUNA MD Ot J44 .0 CHRONIC OBSTRUCTIVE PULMON DISEASE W ACU 01/09/2017 ALPESH LUNA MD Ot J44 .1 CHRONIC OBSTRUCTIVE PULMONARY DISEASE W 01/09/2017 ALPESH LUNA MD Ot K21 .9 GASTRO-ESOPHAGEAL REFLUX DISEASE WITHOUT 01/09/2017 ALPESH LUNA MD Ot M06 .9 RHEUMATOID ARTHRITIS, UNSPECIFIED 01/09/2017 ALPESH LUNA MD Ot Z87.891 PERSONAL HISTORY OF NICOTINE DEPENDENCE 01/09/2017 ALPESH LUNA MD Ot Z96.641 PRESENCE OF RIGHT ARTIFICIAL HIP JOINT 01/09/2017 ALPESH LUNA MD, Ot Z96.651 PRESENCE OF RIGHT ARTIFICIAL KNEE JOINT 01/09/2017 ALPESH LUNA MD Ot Z99.81 DEPENDENCE ON SUPPLEMENTAL OXYGEN 01/29/2017 LULÚ MCKEON DO Ot F41. 9 ANXIETY DISORDER, UNSPECIFIED 01/29/2017 MIKE IYER LULÚ M Ot J43. 8 OTHER EMPHYSEMA 01/29/2017 MIKE IYER LULÚ M Ot R06. 02 SHORTNESS OF BREATH 03/08/2017 JANEY ALFORD, GRETEL Brannon Ot A04.7 ENTEROCOLITIS DUE TO CLOSTRIDIUM DIFFICI 04/11/2017 JULIA JIMENEZ DO Ot A41.9 SEPSIS, UNSPECIFIED ORGANISM 04/11/2017 JULIA JIMENEZ DO Ot E78.00 PURE HYPERCHOLESTEROLEMIA, UNSPECIFIED 04/11/2017 JULIA JIMENEZ DO Ot F03.90 UNSPECIFIED DEMENTIA WITHOUT BEHAVIORAL 04/11/2017 JULIA JIMENEZ DO Ot F32.9 MAJOR DEPRESSIVE DISORDER, SINGLE EPISOD 04/11/2017 JULIA JIMENEZ DO Ot F41.9 ANXIETY DISORDER, UNSPECIFIED 04/11/2017 JULIA JIMENEZ DO Ot G47.00 INSOMNIA, UNSPECIFIED 04/11/2017 JULIA JIMENEZ DO Ot H93.13 TINNITUS, BILATERAL 04/11/2017 JULIA JIMENEZ DO Ot I10 ESSENTIAL (PRIMARY) HYPERTENSION 04/11/2017 JULIA JIMENEZ DO Ot I69.322 DYSARTHRIA FOLLOWING CEREBRAL INFARCTION 04/11/2017 JULIA JIMENEZ DO Ot I69.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 FOLLOWING CEREBRAL INFRC AFF RI 04/11/2017 JULIA JIMENEZ DO Ot I69.391 DYSPHAGIA FOLLOWING CEREBRAL INFARCTION 04/11/2017 JULIA JIMENEZ DO Ot I70.203 UNSP ATHSCL [place] ARTERIES OF EXTREMITI 04/11/2017 JULIA JIMENEZ DO Ot J18.9 PNEUMONIA, UNSPECIFIED ORGANISM 04/11/2017 JULIA JIMENEZ DO Ot J30.2 OTHER SEASONAL ALLERGIC RHINITIS 04/11/2017 JULIA JIMENEZ DO Ot J44.0 CHRONIC OBSTRUCTIVE PULMON DISEASE W ACU 04/11/2017 JULIA JIMENEZ DO Ot K21.9 GASTRO-ESOPHAGEAL REFLUX DISEASE WITHOUT 04/11/2017 JULIA JIMENEZ DO Ot K75.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) 04/11/2017 JULIA JIMENEZ DO Ot M06.9 RHEUMATOID ARTHRITIS, UNSPECIFIED 04/11/2017 JULIA JIMENEZ DO Ot M19.91 PRIMARY OSTEOARTHRITIS, UNSPECIFIED SITE 04/11/2017 JULIA JIMENEZ DO Ot R11.2 NAUSEA WITH VOMITING, UNSPECIFIED 04/11/2017 JULIA JIMENEZ DO Ot R19.7 DIARRHEA, UNSPECIFIED 04/11/2017 JULIA JIMENEZ DO Ot R65.20 SEVERE SEPSIS WITHOUT SEPTIC SHOCK 04/11/2017 JULIA JIMENEZ DO Ot Z87.891 PERSONAL HISTORY OF NICOTINE DEPENDENCE 04/11/2017 JULIA JIMENEZ DO Ot Z89.432 ACQUIRED ABSENCE OF LEFT FOOT 04/11/2017 JULIA JIMENEZ DO Ot Z95.820 PERIPHERAL VASCULAR ANGIOPLASTY STATUS W 04/11/2017 JULIA JIMENEZ DO Ot Z96.641 PRESENCE OF RIGHT ARTIFICIAL HIP JOINT 04/11/2017 JULIA JIMENEZ DO Ot Z96.651 PRESENCE OF RIGHT ARTIFICIAL KNEE JOINT 04/11/2017 JULIA JIMENEZ DO Ot Z99.81 DEPENDENCE ON SUPPLEMENTAL OXYGEN 04/11/2017 JULIA JIMENEZ DO Ot A41.9 SEPSIS, UNSPECIFIED ORGANISM 04/11/2017 JULIA JIMENEZ DO Ot E78.00 PURE HYPERCHOLESTEROLEMIA, UNSPECIFIED 04/11/2017 JULIA JIMENEZ DO Ot F03.90 UNSPECIFIED DEMENTIA WITHOUT BEHAVIORAL 04/11/2017 JULIA JIMENEZ DO Ot F32.9 MAJOR DEPRESSIVE DISORDER, SINGLE EPISOD 04/11/2017 JULIA JIMENEZ DO Ot F41.9 ANXIETY DISORDER, UNSPECIFIED 04/11/2017 BANNERJULIA NOLASCO DO Ot G47.00 INSOMNIA, UNSPECIFIED 04/11/2017 JULIA JIMENEZ DO Ot H93.13 TINNITUS, BILATERAL 04/11/2017 JULIA JIMENEZ DO Ot I10 ESSENTIAL (PRIMARY) HYPERTENSION 04/11/2017 JULIA JIMENEZ DO Ot I69.322 DYSARTHRIA FOLLOWING CEREBRAL INFARCTION 04/11/2017 JULIA JIMENEZ DO Ot I69.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 FOLLOWING CEREBRAL INFRC AFF RI 04/11/2017 JULIA JIMENEZ DO Ot I69.391 DYSPHAGIA FOLLOWING CEREBRAL INFARCTION 04/11/2017 JULIA JIMENEZ DO Ot I70.203 UNSP ATHSCL [place] ARTERIES OF EXTREMITI 04/11/2017 JULIA JIMENEZ DO, Ot J18.9 PNEUMONIA, UNSPECIFIED ORGANISM 04/11/2017 JULIA JIMENEZ DO, Ot J30.2 OTHER SEASONAL ALLERGIC RHINITIS 04/11/2017 JULIA JIMENEZ DO, Ot J44.0 CHRONIC OBSTRUCTIVE PULMON DISEASE W ACU 04/11/2017 JULIA JIMENEZ DO Ot K21.9 GASTRO-ESOPHAGEAL REFLUX DISEASE WITHOUT 04/11/2017 JULIA JIMENEZ DO Ot K75.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) 04/11/2017 JULIA JIMENEZ DO, Ot M06.9 RHEUMATOID ARTHRITIS, UNSPECIFIED 04/11/2017 JULIA JIMENEZ DO Ot M19.91 PRIMARY OSTEOARTHRITIS, UNSPECIFIED SITE 04/11/2017 JULIA JIMENEZ DO Ot R11.2 NAUSEA WITH VOMITING, UNSPECIFIED 04/11/2017 JULIA JIMENEZ DO, Ot R19.7 DIARRHEA, UNSPECIFIED 04/11/2017 JULIA JIMENEZ DO Ot R65.20 SEVERE SEPSIS WITHOUT SEPTIC SHOCK 04/11/2017 JULIA JIMENEZ DO, Ot Z87.891 PERSONAL HISTORY OF NICOTINE DEPENDENCE 04/11/2017 JULIA JIMENEZ DO Ot Z89.432 ACQUIRED ABSENCE OF LEFT FOOT 04/11/2017 JULIA JIMENEZ DO Ot Z95.820 PERIPHERAL VASCULAR ANGIOPLASTY STATUS W 04/11/2017 JULIA JIMENEZ DO, Ot Z96.641 PRESENCE OF RIGHT ARTIFICIAL HIP JOINT 04/11/2017 DEQUANDGE JULIA IYER Ot Z96.651 PRESENCE OF RIGHT ARTIFICIAL KNEE JOINT 04/11/2017 JULIA JIMENEZ DO Ot Z99.81 DEPENDENCE ON SUPPLEMENTAL OXYGEN 04/11/2017 JULIA JIMENEZ DO Ot A41.9 SEPSIS, UNSPECIFIED ORGANISM 04/11/2017 JULIA JIMENEZ DO Ot E78.00 PURE HYPERCHOLESTEROLEMIA, UNSPECIFIED 04/11/2017 JULIA JIMENEZ DO Ot F03.90 UNSPECIFIED DEMENTIA WITHOUT BEHAVIORAL 04/11/2017 JULIA JIMENEZ DO Ot F32.9 MAJOR DEPRESSIVE DISORDER, SINGLE EPISOD 04/11/2017 JULIA JIMENEZ DO Ot F41.9 ANXIETY DISORDER, UNSPECIFIED 04/11/2017 JULIA JIMENEZ DO Ot G47.00 INSOMNIA, UNSPECIFIED 04/11/2017 JULIA JIMENEZ DO Ot H93.13 TINNITUS, BILATERAL 04/11/2017 JULIA JIMENEZ DO Ot I10 ESSENTIAL (PRIMARY) HYPERTENSION 04/11/2017 JULIA JIMENEZ DO Ot I69.322 DYSARTHRIA FOLLOWING CEREBRAL INFARCTION 04/11/2017 JULIA JIMENEZ DO Ot I69.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 FOLLOWING CEREBRAL INFRC AFF RI 04/11/2017 JULIA JIMENEZ DO Ot I69.391 DYSPHAGIA FOLLOWING CEREBRAL INFARCTION 04/11/2017 JULIA JIMENEZ DO Ot I70.203 UNSP ATHSCL [place] ARTERIES OF EXTREMITI 04/11/2017 JULIA JIMNEEZ DO Ot J18.9 PNEUMONIA, UNSPECIFIED ORGANISM 04/11/2017 JULIA JIMENEZ DO Ot J30.2 OTHER SEASONAL ALLERGIC RHINITIS 04/11/2017 JULIA JIMENEZ DO Ot J44.0 CHRONIC OBSTRUCTIVE PULMON DISEASE W ACU 04/11/2017 JULIA JIMENEZ DO Ot K21.9 GASTRO-ESOPHAGEAL REFLUX DISEASE WITHOUT 04/11/2017 JULIA JIMENEZ DO Ot K75.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) 04/11/2017 JULIA JIMENEZ DO Ot M06.9 RHEUMATOID ARTHRITIS, UNSPECIFIED 04/11/2017 JULIA JIMENEZ DO Ot M19.91 PRIMARY OSTEOARTHRITIS, UNSPECIFIED SITE 04/11/2017 JULIA JIMENEZ DO Ot R11.2 NAUSEA WITH VOMITING, UNSPECIFIED 04/11/2017 JULIA JIMENEZ DO Ot R19.7 DIARRHEA, UNSPECIFIED 04/11/2017 JULIA JIMENEZ DO Ot R65.20 SEVERE SEPSIS WITHOUT SEPTIC SHOCK 04/11/2017 JULIA JIMENEZ DO Ot Z87.891 PERSONAL HISTORY OF NICOTINE DEPENDENCE 04/11/2017 JULIA JIMENEZ DO Ot Z89.432 ACQUIRED ABSENCE OF LEFT FOOT 04/11/2017 JULIA JIMENEZ DO Ot Z95.820 PERIPHERAL VASCULAR ANGIOPLASTY STATUS W 04/11/2017 JULIA JIMENEZ DO Ot Z96.641 PRESENCE OF RIGHT ARTIFICIAL HIP JOINT 04/11/2017 JULIA JIMENEZ DO Ot Z96.651 PRESENCE OF RIGHT ARTIFICIAL KNEE JOINT 04/11/2017 JULIA JIMENEZ DO Ot Z99.81 DEPENDENCE ON SUPPLEMENTAL OXYGEN 04/12/2017 JULIA JIMENEZ DO Ot A41.9 SEPSIS, UNSPECIFIED ORGANISM 04/12/2017 JULIA JIMENEZ DO Ot E78.00 PURE HYPERCHOLESTEROLEMIA, UNSPECIFIED 04/12/2017 JULIA JIMENEZ DO Ot F03.90 UNSPECIFIED DEMENTIA WITHOUT BEHAVIORAL 04/12/2017 JULIA JIMENEZ DO Ot F32.9 MAJOR DEPRESSIVE DISORDER, SINGLE EPISOD 04/12/2017 JULIA JIMENEZ DO Ot F41.9 ANXIETY DISORDER, UNSPECIFIED 04/12/2017 JULIA JIMENEZ DO Ot G47.00 INSOMNIA, UNSPECIFIED 04/12/2017 JULIA JIMENEZ DO Ot H93.13 TINNITUS, BILATERAL 04/12/2017 JULIA JIMENEZ DO Ot I10 ESSENTIAL (PRIMARY) HYPERTENSION 04/12/2017 JULIA JIMENEZ DO Ot I69.322 DYSARTHRIA FOLLOWING CEREBRAL INFARCTION 04/12/2017 JULIA JIMENEZ DO Ot I69.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 FOLLOWING CEREBRAL INFRC AFF RI 04/12/2017 JULIA IJMENEZ DO Ot I69.391 DYSPHAGIA FOLLOWING CEREBRAL INFARCTION 04/12/2017 JULIA JIMENEZ DO, Ot I70.203 UNSP ATHSCL [place] ARTERIES OF EXTREMITI 04/12/2017 JULIA JIMENEZ DO, Ot J18.9 PNEUMONIA, UNSPECIFIED ORGANISM 04/12/2017 JULIA JIMENEZ DO, Ot J30.2 OTHER SEASONAL ALLERGIC RHINITIS 04/12/2017 JULIA JIMENEZ DO, Ot J44.0 CHRONIC OBSTRUCTIVE PULMON DISEASE W ACU 04/12/2017 JULIA JIMENEZ DO Ot K21.9 GASTRO-ESOPHAGEAL REFLUX DISEASE WITHOUT 04/12/2017 JULIA JIMENEZ DO, Ot K75.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) 04/12/2017 JULIA JIMENEZ DO, Ot M06.9 RHEUMATOID ARTHRITIS, UNSPECIFIED 04/12/2017 JULIA JIMENEZ DO, Ot M19.91 PRIMARY OSTEOARTHRITIS, UNSPECIFIED SITE 04/12/2017 JULIA JIMENEZ DO, Ot R11.2 NAUSEA WITH VOMITING, UNSPECIFIED 04/12/2017 JULIA JIMENEZ DO, Ot R19.7 DIARRHEA, UNSPECIFIED 04/12/2017 JULIA JIMENEZ DO, Ot R65.20 SEVERE SEPSIS WITHOUT SEPTIC SHOCK 04/12/2017 JULIA JIMENEZ DO, Ot Z87.891 PERSONAL HISTORY OF NICOTINE DEPENDENCE 04/12/2017 JULIA JIMENEZ DO, Ot Z89.432 ACQUIRED ABSENCE OF LEFT FOOT 04/12/2017 JULIA JIMENEZ DO, Ot Z95.820 PERIPHERAL VASCULAR ANGIOPLASTY STATUS W 04/12/2017 JULIA JIMENEZ DO, Ot Z96.641 PRESENCE OF RIGHT ARTIFICIAL HIP JOINT 04/12/2017 JULIA JIMENEZ DO, Ot Z96.651 PRESENCE OF RIGHT ARTIFICIAL KNEE JOINT 04/12/2017 JULIA JIMENEZ DO, Ot Z99.81 DEPENDENCE ON SUPPLEMENTAL OXYGEN 04/13/2017 JULIA JIMENEZ DO Ot A41.9 SEPSIS, UNSPECIFIED ORGANISM 04/13/2017 JULIA JIMENEZ DO Ot E78.00 PURE HYPERCHOLESTEROLEMIA, UNSPECIFIED 04/13/2017 JULIA JIMENEZ DO Ot F03.90 UNSPECIFIED DEMENTIA WITHOUT BEHAVIORAL 04/13/2017 JULIA JIMENEZ DO Ot F32.9 MAJOR DEPRESSIVE DISORDER, SINGLE EPISOD 04/13/2017 JULIA JIMENEZ DO Ot F41.9 ANXIETY DISORDER, UNSPECIFIED 04/13/2017 JULIA JIMENEZ DO Ot G47.00 INSOMNIA, UNSPECIFIED 04/13/2017 JULIA JIMENEZ DO, Ot H93.13 TINNITUS, BILATERAL 04/13/2017 JULIA JIMENEZ DO Ot I10 ESSENTIAL (PRIMARY) HYPERTENSION 04/13/2017 JULIA JIMENEZ DO Ot I69.322 DYSARTHRIA FOLLOWING CEREBRAL INFARCTION 04/13/2017 JULIA JMIENEZ DO Ot I69.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 FOLLOWING CEREBRAL INFRC AFF RI 04/13/2017 JULIA JIMENEZ DO Ot I69.391 DYSPHAGIA FOLLOWING CEREBRAL INFARCTION 04/13/2017 JULIA JIMENEZ DO, Ot I70.203 UNSP ATHSCL [place] ARTERIES OF EXTREMITI 04/13/2017 JULIA JIMENEZ DO, Ot J18.9 PNEUMONIA, UNSPECIFIED ORGANISM 04/13/2017 JULIA JIMENEZ DO, Ot J30.2 OTHER SEASONAL ALLERGIC RHINITIS 04/13/2017 JULIA JIMENEZ DO, Ot J44.0 CHRONIC OBSTRUCTIVE PULMON DISEASE W ACU 04/13/2017 JULIA JIMENEZ DO Ot K21.9 GASTRO-ESOPHAGEAL REFLUX DISEASE WITHOUT 04/13/2017 JULIA JIMENEZ DO, Ot K75.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) 04/13/2017 JULIA JIMENEZ DO Ot M06.9 RHEUMATOID ARTHRITIS, UNSPECIFIED 04/13/2017 JULIA JIMENEZ DO Ot M19.91 PRIMARY OSTEOARTHRITIS, UNSPECIFIED SITE 04/13/2017 BARNIDGE DO, JULIA E Ot R11.2 NAUSEA WITH VOMITING, UNSPECIFIED 04/13/2017 JULIA JIMENEZ DO Ot R19.7 DIARRHEA, UNSPECIFIED 04/13/2017 JULIA JIMENEZ DO Ot R65.20 SEVERE SEPSIS WITHOUT SEPTIC SHOCK 04/13/2017 JULIA JIMENEZ DO, Ot Z87.891 PERSONAL HISTORY OF NICOTINE DEPENDENCE 04/13/2017 JULIA JIMENEZ DO Ot Z89.432 ACQUIRED ABSENCE OF LEFT FOOT 04/13/2017 JULIA JIMENEZ DO Ot Z95.820 PERIPHERAL VASCULAR ANGIOPLASTY STATUS W 04/13/2017 JULIA JIMENEZ DO, Ot Z96.641 PRESENCE OF RIGHT ARTIFICIAL HIP JOINT 04/13/2017 JULIA JIMENEZ DO Ot Z96.651 PRESENCE OF RIGHT ARTIFICIAL KNEE JOINT 04/13/2017 JULIA JIMENEZ DO Ot Z99.81 DEPENDENCE ON SUPPLEMENTAL OXYGEN 04/13/2017 JULIA JIMENEZ DO Ot A41.9 SEPSIS, UNSPECIFIED ORGANISM 04/13/2017 JULIA JIMENEZ DO Ot D64.9 ANEMIA, UNSPECIFIED 04/13/2017 JULIA JIMENEZ DO Ot E78.00 PURE HYPERCHOLESTEROLEMIA, UNSPECIFIED 04/13/2017 JULIA JIMENEZ DO Ot F03.90 UNSPECIFIED DEMENTIA WITHOUT BEHAVIORAL 04/13/2017 JULIA JIMENEZ DO Ot F32.9 MAJOR DEPRESSIVE DISORDER, SINGLE EPISOD 04/13/2017 JULIA JIMENEZ DO, Ot F41.9 ANXIETY DISORDER, UNSPECIFIED 04/13/2017 JULIA JIMENEZ DO Ot G47.00 INSOMNIA, UNSPECIFIED 04/13/2017 JULIA JIMENEZ DO, Ot H93.13 TINNITUS, BILATERAL 04/13/2017 JULIA JIMENEZ DO Ot I10 ESSENTIAL (PRIMARY) HYPERTENSION 04/13/2017 JULIA JIMENEZ DO Ot I69.322 DYSARTHRIA FOLLOWING CEREBRAL INFARCTION 04/13/2017 JULIA JIMENEZ DO Ot I69.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 FOLLOWING CEREBRAL INFRC AFF RI 04/13/2017 JULIA JIMENEZ DO, Ot I69.391 DYSPHAGIA FOLLOWING CEREBRAL INFARCTION 04/13/2017 JULIA JIMENEZ DO, Ot I70.203 UNSP ATHSCL [place] ARTERIES OF EXTREMITI 04/13/2017 JULIA JIMENEZ DO, Ot J18.9 PNEUMONIA, UNSPECIFIED ORGANISM 04/13/2017 JULIA JIMENEZ DO, Ot J30.2 OTHER SEASONAL ALLERGIC RHINITIS 04/13/2017 JULIA JIMENEZ DO, Ot J43.9 EMPHYSEMA, UNSPECIFIED 04/13/2017 JULIA JIMENEZ DO, Ot J44.0 CHRONIC OBSTRUCTIVE PULMON DISEASE W ACU 04/13/2017 JULIA JIMENEZ DO, Ot K21.9 GASTRO-ESOPHAGEAL REFLUX DISEASE WITHOUT 04/13/2017 JULIA JIMENEZ DO, Ot K75.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) 04/13/2017 JULIA JIMENEZ DO, Ot M06.9 RHEUMATOID ARTHRITIS, UNSPECIFIED 04/13/2017 JULIA JIMENEZ DO, Ot M19.91 PRIMARY OSTEOARTHRITIS, UNSPECIFIED SITE 04/13/2017 JULIA JIMENEZ DO Ot R11.2 NAUSEA WITH VOMITING, UNSPECIFIED 04/13/2017 JULIA JIMENEZ DO, Ot R19.7 DIARRHEA, UNSPECIFIED 04/13/2017 JULIA JIMENEZ DO, Ot R65.20 SEVERE SEPSIS WITHOUT SEPTIC SHOCK 04/13/2017 JULIA JIMENEZ DO, Ot Z23 ENCOUNTER FOR IMMUNIZATION 04/13/2017 JULIA JIMENEZ DO, Ot Z87.891 PERSONAL HISTORY OF NICOTINE DEPENDENCE 04/13/2017 JULIA JIMENEZ DO, Ot Z89.432 ACQUIRED ABSENCE OF LEFT FOOT 04/13/2017 JULIA JIMENEZ DO, Ot Z95.820 PERIPHERAL VASCULAR ANGIOPLASTY STATUS W 04/13/2017 JULIA JIMENEZ DO, Ot Z96.641 PRESENCE OF RIGHT ARTIFICIAL HIP JOINT 04/13/2017 JULIA JIMENEZ DO, Ot Z96.651 PRESENCE OF RIGHT ARTIFICIAL KNEE JOINT 04/13/2017 BARNIDGE DO, JULIA E Ot Z99.81 DEPENDENCE ON SUPPLEMENTAL OXYGEN 06/15/2017 JUNIOR ORNELAS MD Ot V58. 61 ANTICOAGULANTS,LT,CURRENT USE 06/15/2017 JUNIOR ORNELAS MD Ot V58. 83 ENCOUNTER FOR THERAPEUTIC DRUG MONITORIN 06/15/2017 JUNIOR ORNELAS MD Ot V58. 61 ANTICOAGULANTS,LT,CURRENT USE 06/15/2017 CECI ALFORD, JUNIOR De La Cruz Ot V58. 83 ENCOUNTER FOR THERAPEUTIC DRUG MONITORIN 06/15/2017 JUNIOR KWOK MD Ot V58.6 1 ANTICOAGULANTS,LT,CURRENT USE 06/15/2017 JUNIOR KWOK MD Ot V58.8 3 ENCOUNTER FOR THERAPEUTIC DRUG MONITORIN 06/15/2017 JUNIOR KWOK MD Ot V58.6 1 ANTICOAGULANTS,LT,CURRENT USE 06/15/2017 JUNIOR KWOK MD Ot V58.8 3 ENCOUNTER FOR THERAPEUTIC DRUG MONITORIN 06/15/2017 MARJORIE EDUARDO [employer] EXEC Ot 305.1 TOBACCO USE DISORDER 06/15/2017 MARJORIE EDUARDO [employer] EXEC Ot 427.0 PAROX ATRIAL TACHYCARDIA 06/15/2017 MARJORIE EDUARDO [employer] EXEC Ot 443.9 PERIPH VASCULAR DIS NOS 06/15/2017 MARJORIE EDUARDO L [employer] EXEC Ot 4 96 CHR AIRWAY OBSTRUCT NEC 06/15/2017 DAPHNE YUSUF [employer] EXEC Ot I73.9 PERIPHERAL VASCULAR DISEASE, UNSPECIFIED 06/15/2017 NAM GASPAR [employer] EXEC Ot R06.02 SHORTNESS OF BREATH 06/15/2017 NAM GASPAR [employer] EXEC Ot R60.9 EDEMA, UNSPECIFIED 06/15/2017 JESSICA ALFORD FACAUGIE FACP CCDS Ot R06.02 SHORTNESS OF BREATH 06/15/2017 KETAN DUARTE GARAGEMAN Ot G47.9 SLEEP DISORDER, UNSPECIFIED 06/15/2017 KETAN DUARTE GARAGEMAN Ot J44.9 CHRONIC OBSTRUCTIVE PULMONARY DISEASE, U 06/15/2017 KETAN DUARTE GARAGEMAN Ot R05 COUGH 06/15/2017 KETAN DUARTE GARAGEMAN Ot R06.2 WHEEZING 06/15/2017 KETAN DUARTE GARAGEMAN Ot F17.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 9 ANXIETY DISORDER, UNSPECIFIED 06/15/2017 LULÚ MCKEON DO Ot J44. 9 CHRONIC OBSTRUCTIVE PULMONARY DISEASE, U 06/15/2017 LULÚ MCKEON DO Ot R06. 02 SHORTNESS OF BREATH 06/15/2017 LULÚ MCKEON DO Ot Z72. 0 TOBACCO USE 06/15/2017 DAPHNE YUSUF Ot D50.9 IRON DEFICIENCY ANEMIA, UNSPECIFIED 06/15/2017 JANEY ALFORD, GRETEL Brannon Ot D50.9 IRON DEFICIENCY ANEMIA, UNSPECIFIED 06/15/2017 JANEY ALFORD, GRETEL Brannon Ot D50.9 IRON DEFICIENCY ANEMIA, UNSPECIFIED 06/15/2017 JANEY ALFORD, GRETEL Brannon Ot Z01.818 ENCOUNTER FOR OTHER PREPROCEDURAL EXAMIN 06/15/2017 JESSICA ALFORD FACC, AUGIE FACP CCDS Ot D63.8 ANEMIA IN OTHER CHRONIC DISEASES CLASSIF 06/15/2017 JESSICA ALFORD FACC, ALI FACP CCDS Ot I47.1 SUPRAVENTRICULAR TACHYCARDIA 06/15/2017 JESSICA ALFORD FACC, ALI FACP CCDS Ot 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 06/15/2017 JESSICA ALFORD FACC, ALI FACP CCDS Ot M06.9 RHEUMATOID ARTHRITIS, UNSPECIFIED 06/15/2017 JESSICA ALFORD FACC, ALI FACP CCDS Ot M79.89 OTHER SPECIFIED SOFT TISSUE DISORDERS 06/15/2017 JESSICA ALFORD FACC, ALI FACP CCDS Ot R07.89 OTHER CHEST PAIN 06/15/2017 JESSICA ALFORD FACC, ALI FACP CCDS Ot D63.8 ANEMIA IN OTHER CHRONIC DISEASES CLASSIF 06/15/2017 JESSICA ALFORD FACC, ALI FACP CCDS Ot I47.1 SUPRAVENTRICULAR TACHYCARDIA 06/15/2017 JESSICA ALFORD FACC, ALI FACP CCDS Ot 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 06/15/2017 JESSICA ALFORD FACC, ALI FACP CCDS Ot M06.9 RHEUMATOID ARTHRITIS, UNSPECIFIED 06/15/2017 JESSICA ALFORD FACC, ALI FACP CCDS Ot M79.89 OTHER SPECIFIED SOFT TISSUE DISORDERS 06/15/2017 JESSICA ALFORD FAC, ALI [facility] CCDS Ot R07.89 OTHER CHEST PAIN 06/15/2017 MARLENA HURTADO Gloria Ot E11.59 TYPE 2 DIABETES MELLITUS WITH OTH CIRCUL 06/15/2017 MARLENA HURTADO Gloria Ot F17.210 NICOTINE DEPENDENCE, CIGARETTES, UNCOMPL 06/15/2017 MARLENA HURTADO Gloria Ot F41.9 ANXIETY DISORDER, UNSPECIFIED 06/15/2017 MARLENA HURTADO Gloria Ot I47.1 SUPRAVENTRICULAR TACHYCARDIA 06/15/2017 MARLENA HURTADO Gloria Ot I65.23 OCCLUSION AND STENOSIS OF BILATERAL HERNANDEZ 06/15/2017 MARLENA HURTADO Gloria Ot 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 06/15/2017 MARLENA HURTADO Gloria Ot I80.209 PHLBTS AND THOMBOPHLB OF UNSP DEEP VESSE 06/15/2017 MARLENA HURTADO Gloria Ot J44.9 CHRONIC OBSTRUCTIVE PULMONARY DISEASE, U 06/15/2017 MARLENA HURTADO Gloria Ot 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 06/15/2017 JANEY ALFORD, GRETEL Brannon Ot A04.7 ENTEROCOLITIS DUE TO CLOSTRIDIUM DIFFICI 06/15/2017 KETAN DUARTE APRN Ot R09.02 HYPOXEMIA 06/15/2017 KETAN DUARTE APRN Ot R91.1 SOLITARY PULMONARY NODULE 06/15/2017 KETAN DUARTE APRN Ot Z72.0 TOBACCO USE 06/15/2017 LULÚ MCKEON DO Ot F41. 9 ANXIETY DISORDER, UNSPECIFIED 06/15/2017 LULÚ MCKEON DO Ot J43. 8 OTHER EMPHYSEMA 06/15/2017 LULÚ MCKEON DO Ot R06. 02 SHORTNESS OF BREATH 06/15/2017 JUNIOR ORNELAS MD Ot V58. 61 ANTICOAGULANTS,LT,CURRENT USE 06/15/2017 JUNIOR ORNELAS MD Ot V58. 83 ENCOUNTER FOR THERAPEUTIC DRUG MONITORIN 06/15/2017 JUNIOR ORNELAS MD Ot V58. 61 ANTICOAGULANTS,LT,CURRENT USE 06/15/2017 JUNIOR ORNELAS MD Ot V58. 83 ENCOUNTER FOR THERAPEUTIC DRUG MONITORIN 06/15/2017 JUNIOR KWOK MD Ot V58.6 1 ANTICOAGULANTS,LT,CURRENT USE 06/15/2017 JUNIOR KWOK MD Ot V58.8 3 ENCOUNTER FOR THERAPEUTIC DRUG MONITORIN 06/15/2017 JUNIOR KWOK MD Ot V58.6 1 ANTICOAGULANTS,LT,CURRENT USE 06/15/2017 JUNIOR KWOK MD Ot V58.8 3 ENCOUNTER FOR THERAPEUTIC DRUG MONITORIN 06/15/2017 MARJORIE EDUARDO [employer] SAL[employer] EXEC Ot 305.1 TOBACCO USE DISORDER 06/15/2017 MARJORIE EDUARDO L [employer]2B [employer]NA[employer]ED [employer] SALES EXEC Ot 427.0 PAROX ATRIAL TACHYCARDIA 06/15/2017 BAIKENNEDI MARJORIE L [employer]2B MANA[employer]ED [employer] SALES EXEC Ot 443.9 PERIPH VASCULAR DIS NOS 06/15/2017 MARJORIE EDUARDO L B2B MANAGED SERVICE SALES EXEC Ot 4 96 CHR AIRWAY OBSTRUCT NEC 06/15/2017 DAPHNE YUSUF B2B MANAGED SERVICE SALES EXEC Ot I73.9 PERIPHERAL VASCULAR DISEASE, UNSPECIFIED 06/15/2017 NAM GASPAR [employer]2B MANA[employer]ED [employer] SALES EXEC Ot R06.02 SHORTNESS OF BREATH 06/15/2017 NAM GASPAR [employer] SAL[employer] EXEC Ot R60.9 EDEMA, UNSPECIFIED 06/15/2017 JESSICA ALFORD FAC, AUGIE ELI CCDS Ot R06.02 SHORTNESS OF BREATH 06/15/2017 KETAN DUARTE APRN Ot G47.9 SLEEP DISORDER, UNSPECIFIED 06/15/2017 KETAN DUARTE GARAGEMAN Ot J44.9 CHRONIC OBSTRUCTIVE PULMONARY DISEASE, U 06/15/2017 KETAN DUARTE GARAGEMAN Ot R05 COUGH 06/15/2017 KETAN DUARTE GARAGEMAN Ot R06.2 WHEEZING 06/15/2017 KETAN DUARTE GARAGEMAN Ot F17.201 NICOTINE DEPENDENCE, UNSPECIFIED, IN REM 06/15/2017 KETAN DUARTE GARAGEMAN Ot J44.9 CHRONIC OBSTRUCTIVE PULMONARY DISEASE, U 06/15/2017 KETAN DUARTE APRN Ot R05 COUGH 06/15/2017 KETAN DUARTE GARAGEMAN Ot R06.2 WHEEZING 06/15/2017 LULÚ MCKEON DO Ot F41. 9 ANXIETY DISORDER, UNSPECIFIED 06/15/2017 LULÚ MCKEON DO Ot J44. 9 CHRONIC OBSTRUCTIVE PULMONARY DISEASE, U 06/15/2017 LULÚ MCKEON DO Ot R06. 02 SHORTNESS OF BREATH 06/15/2017 LULÚ MCKEON DO M Ot Z72. 0 TOBACCO USE 06/15/2017 DAPHNE YUSUF Ot D50.9 IRON DEFICIENCY ANEMIA, UNSPECIFIED 06/15/2017 JANEY ALFORD, GRETEL Brannon Ot D50.9 IRON DEFICIENCY ANEMIA, UNSPECIFIED 06/15/2017 JANEY ALFORD, GRETEL Brannon Ot D50.9 IRON DEFICIENCY ANEMIA, UNSPECIFIED 06/15/2017 JANEY ALFORD, GRETEL Brannon Ot Z01.818 ENCOUNTER FOR OTHER PREPROCEDURAL EXAMIN 06/15/2017 JESSICA ALFORD FACC, ALI FACP CCDS Ot D63.8 ANEMIA IN OTHER CHRONIC DISEASES CLASSIF 06/15/2017 JESSICA ALFORD FACC, ALI FACP CCDS Ot I47.1 SUPRAVENTRICULAR TACHYCARDIA 06/15/2017 JESSICA ALFORD FACC, ALI FACP CCDS Ot 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 06/15/2017 JESSICA ALFORD FACC, ALI FACP CCDS Ot M06.9 RHEUMATOID ARTHRITIS, UNSPECIFIED 06/15/2017 JESSICA ALFORD FACC, ALI FACP CCDS Ot M79.89 OTHER SPECIFIED SOFT TISSUE DISORDERS 06/15/2017 JESSICA ALFORD FACC, ALI FACP CCDS Ot R07.89 OTHER CHEST PAIN 06/15/2017 JESSICA ALFORD FACC, ALI FACP CCDS Ot D63.8 ANEMIA IN OTHER CHRONIC DISEASES CLASSIF 06/15/2017 JESSICA ALFORD FACJude, ALI FACP CCDS Ot I47.1 SUPRAVENTRICULAR TACHYCARDIA 06/15/2017 JESSICA ALFORD FACC, ALI FACP CCDS Ot 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 06/15/2017 JESSICA ALFORD FACC, ALI FACP CCDS Ot M06.9 RHEUMATOID ARTHRITIS, UNSPECIFIED 06/15/2017 JESSICA ALFORD FACC, ALI FACP CCDS Ot M79.89 OTHER SPECIFIED SOFT TISSUE DISORDERS 06/15/2017 JESSICA ALFORD FACC, ALI FACP CCDS Ot R07.89 OTHER CHEST PAIN 06/15/2017 MARLENA HURTADO Ot E11.59 TYPE 2 DIABETES MELLITUS WITH OTH CIRCUL 06/15/2017 MARLENA HURTADO Ot F17.210 NICOTINE DEPENDENCE, CIGARETTES, UNCOMPL 06/15/2017 MARLENA HURTADO Ot F41.9 ANXIETY DISORDER, UNSPECIFIED 06/15/2017 MARLENA HURTADO Gloria Ot I47.1 SUPRAVENTRICULAR TACHYCARDIA 06/15/2017 MARLENA HURTADO Gloria Ot I65.23 OCCLUSION AND STENOSIS OF BILATERAL HER[place]NDEZ 06/15/2017 GENESIS MARLENA Castro Ot 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 06/15/2017 MARLENA HURTADO Gloria Ot I80.209 PHLBTS AND THOMBOPHLB OF UNSP DEEP VESSE 06/15/2017 GENESIS MARLENA Castro Ot J44.9 CHRONIC OBSTRUCTIVE PULMONARY DISEASE, U 06/15/2017 MARLENA HURTADO Gloria Ot 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 06/15/2017 JANEY ALFORD, GRETEL Brannon Ot A04.7 ENTEROCOLITIS DUE TO CLOSTRIDIUM DIFFICI 06/15/2017 KETAN DUARTE APRN Ot R09.02 HYPOXEMIA 06/15/2017 KETAN DUARTE APRN Ot R91.1 SOLITARY PULMONARY NODULE 06/15/2017 KETAN DUARTE APRN Ot Z72.0 TOBACCO USE 06/15/2017 LULÚ MCKEON DO Ot F41. 9 ANXIETY DISORDER, UNSPECIFIED 06/15/2017 LULÚ MCKEON DO Ot J43. 8 OTHER EMPHYSEMA 06/15/2017 LULÚ MCKEON DO Ot R06. 02 SHORTNESS OF BREATH 07/24/2017 JUNIOR ORNELAS MD Ot V58. 61 ANTICOAGULANTS,LT,CURRENT USE 07/24/2017 JUNIOR ORNELAS MD Ot V58. 83 ENCOUNTER FOR THERAPEUTIC DRUG MONITORIN 07/24/2017 JUNIOR ORNELAS MD Ot V58. 61 ANTICOAGULANTS,LT,CURRENT USE 07/24/2017 JUNIOR ORNELAS MD Ot V58. 83 ENCOUNTER FOR THERAPEUTIC DRUG MONITORIN 07/24/2017 JUNIOR KWOK MD Ot V58.6 1 ANTICOAGULANTS,LT,CURRENT USE 07/24/2017 JUNIOR KWOK MD Ot V58.8 3 ENCOUNTER FOR THERAPEUTIC DRUG MONITORIN 07/24/2017 JUNIOR KWOK MD Ot V58.6 1 ANTICOAGULANTS,LT,CURRENT USE 07/24/2017 JUNIOR KWOK MD Ot V58.8 3 ENCOUNTER FOR THERAPEUTIC DRUG MONITORIN 07/24/2017 MARJORIE EDUARDO Ot 305.1 TOBACCO USE DISORDER 07/24/2017 MARJORIE EDUARDO B2B MANAGED SERVICE SALES EXEC Ot 427.0 PAROX ATRIAL TACHYCARDIA 07/24/2017 MARJORIE EDUARDO B2B MANAGED SERVICE SALES EXEC Ot 443.9 PERIPH VASCULAR DIS NOS 07/24/2017 MARJORIE EDUARDO B2B MANAGED SERVICE SALES EXEC Ot 4 96 CHR AIRWAY OBSTRUCT NEC 07/24/2017 DAPHNE YUSUF B2B MANAGED SERVICE SALES EXEC Ot I73.9 PERIPHERAL VASCULAR DISEASE, UNSPECIFIED 07/24/2017 NAM GASPAR B2B MANAGED SERVICE SALES EXEC Ot R06.02 SHORTNESS OF BREATH 07/24/2017 NAM GASPAR B2B MANAGED SERVICE SALES EXEC Ot R60.9 EDEMA, UNSPECIFIED 07/24/2017 JESSICA ALFORD FAC, AUGIE ELI CCDS Ot R06.02 SHORTNESS OF BREATH 07/24/2017 KETAN DUARTE GARAGEMAN Ot G47.9 SLEEP DISORDER, UNSPECIFIED 07/24/2017 KETAN DUARTE GARAGEMAN Ot J44.9 CHRONIC OBSTRUCTIVE PULMONARY DISEASE, U 07/24/2017 KETAN DUARTE GARAGEMAN Ot R05 COUGH 07/24/2017 KETAN DUARTE GARAGEMAN Ot R06.2 WHEEZING 07/24/2017 KETAN DUARTE E GARAGEMAN Ot F17.201 NICOTINE DEPENDENCE, UNSPECIFIED, IN REM 07/24/2017 KETAN DUARTE GARAGEMAN Ot J44.9 CHRONIC OBSTRUCTIVE PULMONARY DISEASE, U 07/24/2017 KETAN DUARTE GARAGEMAN Ot R05 COUGH 07/24/2017 KETAN DUARTE GARAGEMAN Ot R06.2 WHEEZING 07/24/2017 LULÚ MCKEON DO Ot F41. 9 ANXIETY DISORDER, UNSPECIFIED 07/24/2017 LULÚ MCKEON DO Ot J44. 9 CHRONIC OBSTRUCTIVE PULMONARY DISEASE, U 07/24/2017 LULÚ MCKEON DO Ot R06. 02 SHORTNESS OF BREATH 07/24/2017 LULÚ MCKEON DO Ot Z72. 0 TOBACCO USE 07/24/2017 DAPHNE YUSUFP Ot D50.9 IRON DEFICIENCY ANEMIA, UNSPECIFIED 07/24/2017 JANEY ALFORD, GRETEL Brannon Ot D50.9 IRON DEFICIENCY ANEMIA, UNSPECIFIED 07/24/2017 JNAEY ALFORD, GRETEL Brannon Ot D50.9 IRON DEFICIENCY ANEMIA, UNSPECIFIED 07/24/2017 JANEY ALFORD, GRETEL Brannon Ot Z01.818 ENCOUNTER FOR OTHER PREPROCEDURAL EXAMIN 07/24/2017 JESSICA ALFORD FACC, ALI FACP CCDS Ot D63.8 ANEMIA IN OTHER CHRONIC DISEASES CLASSIF 07/24/2017 JESSICA ALFORD FACC, ALI FACP CCDS Ot I47.1 SUPRAVENTRICULAR TACHYCARDIA 07/24/2017 JESSICA ALFORD FACC, ALI FACP CCDS Ot 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 07/24/2017 JESSICA ALFORD FACC, ALI FACP CCDS Ot M06.9 RHEUMATOID ARTHRITIS, UNSPECIFIED 07/24/2017 JESSICA ALFORD FACC, ALI FACP CCDS Ot M79.89 OTHER SPECIFIED SOFT TISSUE DISORDERS 07/24/2017 JESSICA ALFORD FACC, ALI FACP CCDS Ot R07.89 OTHER CHEST PAIN 07/24/2017 JESSICA ALFORD FACC, ALI FACP CCDS Ot D63.8 ANEMIA IN OTHER CHRONIC DISEASES CLASSIF 07/24/2017 JESSICA ALFORD FACC, ALI FACP CCDS Ot I47.1 SUPRAVENTRICULAR TACHYCARDIA 07/24/2017 JESSICA ALFORD FACC, ALI FACP CCDS Ot 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 07/24/2017 JESSICA ALFORD FACC, ALI FACP CCDS Ot M06.9 RHEUMATOID ARTHRITIS, UNSPECIFIED 07/24/2017 JESSICA ALFORD FACC, ALI FACP CCDS Ot M79.89 OTHER SPECIFIED SOFT TISSUE DISORDERS 07/24/2017 JESSICA ALFORD FACC, ALI FACP CCDS Ot R07.89 OTHER CHEST PAIN 07/24/2017 MARLENA HURTADO Ot E11.59 TYPE 2 DIABETES MELLITUS WITH OTH CIRCUL 07/24/2017 MARLENA HURTADO Ot F17.210 NICOTINE DEPENDENCE, CIGARETTES, UNCOMPL 07/24/2017 MARLENA HURTADO Ot F41.9 ANXIETY DISORDER, UNSPECIFIED 07/24/2017 MARLENA HURTADO Ot I47.1 SUPRAVENTRICULAR TACHYCARDIA 07/24/2017 MARLENA HURTADO Ot I65.23 OCCLUSION AND STENOSIS OF BILATERAL [place]DE[place] 07/24/2017 MARLENA HURTADO Ot 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 07/24/2017 MARLENA HURTADO Ot I80.209 PHLBTS AND THOMBOPHLB OF UNSP DEEP VESSE 07/24/2017 MARLENA HURTADO Ot J44.9 CHRONIC OBSTRUCTIVE PULMONARY DISEASE, U 07/24/2017 GENESIS MARLENA Castro Ot Z79.899 OTHER ASSISTED (CURRENT) DRUG THERAPY 07/24/2017 JANEY ALFORD, GRETEL Brannon Ot A04.7 ENTEROCOLITIS DUE TO CLOSTRIDIUM DIFFICI 07/24/2017 KETAN DUARTE GARAGEMAN Ot R09.02 HYPOXEMIA 07/24/2017 KETAN DUARTE GARAGEMAN Ot R91.1 SOLITARY PULMONARY NODULE 07/24/2017 KETAN DUARTE GARAGEMAN Ot Z72.0 TOBACCO USE 07/24/2017 LULÚ MCKEON DO Ot F41. 9 ANXIETY DISORDER, UNSPECIFIED 07/24/2017 LULÚ MCKEON DO Ot J43. 8 OTHER EMPHYSEMA 07/24/2017 LULÚ MCKEON DO Ot R06. 02 SHORTNESS OF BREATH 10/12/2017 CECI ALFORD, JUNIOR De La Cruz Ot V58. 61 ANTICOAGULANTS,LT,CURRENT USE 10/12/2017 JUNIOR ORNELAS MD Ot V58. 83 ENCOUNTER FOR THERAPEUTIC DRUG MONITORIN 10/12/2017 JUNIOR ORNELAS MD Ot V58. 61 ANTICOAGULANTS,LT,CURRENT USE 10/12/2017 JUNIOR ORNELAS MD Ot V58. 83 ENCOUNTER FOR THERAPEUTIC DRUG MONITORIN 10/12/2017 JUNIOR KWOK MD Ot V58.6 1 ANTICOAGULANTS,LT,CURRENT USE 10/12/2017 JUNIOR KWOK MD Ot V58.8 3 ENCOUNTER FOR THERAPEUTIC DRUG MONITORIN 10/12/2017 JUNIOR KWOK MD Ot V58.6 1 ANTICOAGULANTS,LT,CURRENT USE 10/12/2017 JUNIOR KWOK MD Ot V58.8 3 ENCOUNTER FOR THERAPEUTIC DRUG MONITORIN 10/12/2017 MARJORIE EDUARDO B2B MANAGED SERVICE SALES EXEC Ot 305.1 TOBACCO USE DISORDER 10/12/2017 MARJORIE EDUARDO B2B MANAGED SERVICE SALES EXEC Ot 427.0 PAROX ATRIAL TACHYCARDIA 10/12/2017 MARJORIE EDUARDO B2B MANAGED SERVICE SALES EXEC Ot 443.9 PERIPH VASCULAR DIS NOS 10/12/2017 MARJORIE EDUARDO B2B MANAGED SERVICE SALES EXEC Ot 4 96 CHR AIRWAY OBSTRUCT NEC 10/12/2017 DAPHNE YUSUF B2B MANAGED SERVICE SALES EXEC Ot I73.9 PERIPHERAL VASCULAR DISEASE, UNSPECIFIED 10/12/2017 GASPAR, NAM R B2B MANAGED SERVICE SALES EXEC Ot R06.02 SHORTNESS OF BREATH 10/12/2017 NAM GASPAR B2B MANAGED SERVICE SALES EXEC Ot R60.9 EDEMA, UNSPECIFIED 10/12/2017 JESSICA ALFORD FACJude, AUGIE FACP CCDS Ot R06.02 SHORTNESS OF BREATH 10/12/2017 GERALDMARYCHUY ELLISONINE E GARAGEMAN Ot G47.9 SLEEP DISORDER, UNSPECIFIED 10/12/2017 GERALDMARYCHUYKETAN E GARAGEMAN Ot J44.9 CHRONIC OBSTRUCTIVE PULMONARY DISEASE, U 10/12/2017 GERALD, KETAN E GARAGEMAN Ot R05 COUGH 10/12/2017 GERALD, KETAN E GARAGEMAN Ot R06.2 WHEEZING 10/12/2017 GERALD KETAN E GARAGEMAN Ot F17.201 NICOTINE DEPENDENCE, UNSPECIFIED, IN REM 10/12/2017 GERALDKETAN ELLISON GARAGEMAN Ot J44.9 CHRONIC OBSTRUCTIVE PULMONARY DISEASE, U 10/12/2017 GERALDMARYCHUY ELLISONINE E GARAGEMAN Ot R05 COUGH 10/12/2017 GERALDMARYCHUY ELLISONINE Anmol GARAGEMAN Ot R06.2 WHEEZING 10/12/2017 LULÚ MCKEON DO Ot F41. 9 ANXIETY DISORDER, UNSPECIFIED 10/12/2017 LULÚ MCKEON DO Ot J44. 9 CHRONIC OBSTRUCTIVE PULMONARY DISEASE, U 10/12/2017 LULÚ MCKEON DO Ot R06. 02 SHORTNESS OF BREATH 10/12/2017 LULÚ MCKEON DO Ot Z72. 0 TOBACCO USE 10/12/2017 DAPHNE YUSUF B2B MANAGED SERVICE SALES EXEC Ot D50.9 IRON DEFICIENCY ANEMIA, UNSPECIFIED 10/12/2017 JANEY ALFORD, GRETEL Brannon Ot D50.9 IRON DEFICIENCY ANEMIA, UNSPECIFIED 10/12/2017 JANEY ALFORD, GRETEL Brannon Ot D50.9 IRON DEFICIENCY ANEMIA, UNSPECIFIED 10/12/2017 JANEY ALFORD, GRETEL Brannon Ot Z01.818 ENCOUNTER FOR OTHER PREPROCEDURAL EXAMIN 10/12/2017 JESSICA ALFORD FACC, AUGIE FACP CCDS Ot D63.8 ANEMIA IN OTHER CHRONIC DISEASES CLASSIF 10/12/2017 JESSICA ALFORD FACC, AUGIE FACP CCDS Ot I47.1 SUPRAVENTRICULAR TACHYCARDIA 10/12/2017 JESSICA ALFORD FACC, AUGIE FACP CCDS Ot 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 10/12/2017 JESSICA ALFORD FACC, ALI FACP CCDS Ot M06.9 RHEUMATOID ARTHRITIS, UNSPECIFIED 10/12/2017 JESSICA ALFORD FAC, ALI FACP CCDS Ot M79.89 OTHER SPECIFIED SOFT TISSUE DISORDERS 10/12/2017 JESSICA ALFORD FAC, ALI FACP CCDS Ot R07.89 OTHER CHEST PAIN 10/12/2017 JESSICA ALFORD FACC, ALI FACP CCDS Ot D63.8 ANEMIA IN OTHER CHRONIC DISEASES CLASSIF 10/12/2017 JESSICA ALFORD FAC, ALI FACP CCDS Ot I47.1 SUPRAVENTRICULAR TACHYCARDIA 10/12/2017 JESSICA ALFORD [facility], ALI FACP CCDS Ot 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 10/12/2017 JESSICA ALFORD [facility], ALI FACP CCDS Ot M06.9 RHEUMATOID ARTHRITIS, UNSPECIFIED 10/12/2017 JESSICA ALFORD FAC, ALI FACP CCDS Ot M79.89 OTHER SPECIFIED SOFT TISSUE DISORDERS 10/12/2017 JESSICA ALFORD [facility], ALI FACP CCDS Ot R07.89 OTHER CHEST PAIN 10/12/2017 MARLENA HURTADO Ot E11.59 TYPE 2 DIABETES MELLITUS WITH OTH CIRCUL 10/12/2017 MARLENA HURTADO Ot F17.210 NICOTINE DEPENDENCE, CIGARETTES, UNCOMPL 10/12/2017 MARLENA HURTADO Ot F41.9 ANXIETY DISORDER, UNSPECIFIED 10/12/2017 MARLENA HURTADO Ot I47.1 SUPRAVENTRICULAR TACHYCARDIA 10/12/2017 MARLENA HURTADO Ot I65.23 OCCLUSION AND STENOSIS OF BILATERAL HER[place]NDEZ 10/12/2017 MARLENA HURTADO Ot 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 10/12/2017 MARLENA HURTADO Ot I80.209 PHLBTS AND THOMBOPHLB OF UNSP DEEP VESSE 10/12/2017 MARLENA HURTADO Ot J44.9 CHRONIC OBSTRUCTIVE PULMONARY DISEASE, U 10/12/2017 MARLENA HURTADO Ot 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 10/12/2017 JANEY ALFORD, GRETEL Brannon Ot A04.7 ENTEROCOLITIS DUE TO CLOSTRIDIUM DIFFICI 10/12/2017 KETAN DUARTE APRN Ot R09.02 HYPOXEMIA 10/12/2017 GERALD, KETAN E GARAGEMAN Ot R91.1 SOLITARY PULMONARY NODULE 10/12/2017 KETAN DUARTE GARAGEMAN Ot Z72.0 TOBACCO USE 10/12/2017 LULÚ MCKEON DO Ot F41. 9 ANXIETY DISORDER, UNSPECIFIED 10/12/2017 LULÚ MCKEON DO Ot J43. 8 OTHER EMPHYSEMA 10/12/2017 LULÚ MCKEON DO Ot R06. 02 SHORTNESS OF BREATH 10/12/2017 CECI ALFORD, JUNIOR De La Cruz Ot V58. 61 ANTICOAGULANTS,LT,CURRENT USE 10/12/2017 CECI ALFORD, JUNIOR De La Cruz Ot V58. 83 ENCOUNTER FOR THERAPEUTIC DRUG MONITORIN 10/12/2017 CECI ALFORD, JUNIOR De La Cruz Ot V58. 61 ANTICOAGULANTS,LT,CURRENT USE 10/12/2017 CECI ALFORD, JUNIOR De La Cruz Ot V58. 83 ENCOUNTER FOR THERAPEUTIC DRUG MONITORIN 10/12/2017 JUNIOR KWOK MD Ot V58.6 1 ANTICOAGULANTS,LT,CURRENT USE 10/12/2017 SUNDAR ALFORD, JUNIOR Brannon Ot V58.8 3 ENCOUNTER FOR THERAPEUTIC DRUG MONITORIN 10/12/2017 JUNIOR KWOK MD Ot V58.6 1 ANTICOAGULANTS,LT,CURRENT USE 10/12/2017 JUNIOR KWOK MD Ot V58.8 3 ENCOUNTER FOR THERAPEUTIC DRUG MONITORIN 10/12/2017 MARJORIE EDUARDO B2B MANAGED SERVICE SALES EXEC Ot 305.1 TOBACCO USE DISORDER 10/12/2017 MARJORIE EDUARDO B2B MANAGED SERVICE SALES EXEC Ot 427.0 PAROX ATRIAL TACHYCARDIA 10/12/2017 MARJORIE EDUARDO B2B MANAGED SERVICE SALES EXEC Ot 443.9 PERIPH VASCULAR DIS NOS 10/12/2017 MARJORIE EDUARDO B2B MANAGED SERVICE SALES EXEC Ot 4 96 CHR AIRWAY OBSTRUCT NEC 10/12/2017 DAPHNE YUSUF B2B MANAGED SERVICE SALES EXEC Ot I73.9 PERIPHERAL VASCULAR DISEASE, UNSPECIFIED 10/12/2017 NAM GASPAR B2B MANAGED SERVICE SALES EXEC Ot R06.02 SHORTNESS OF BREATH 10/12/2017 NAM GASPAR B2B MANAGED SERVICE SALES EXEC Ot R60.9 EDEMA, UNSPECIFIED 10/12/2017 JESSICA ALFORD FACAUGIE Roque FACP CCDS Ot R06.02 SHORTNESS OF BREATH 10/12/2017 KETAN DUARTE GARAGEMAN Ot G47.9 SLEEP DISORDER, UNSPECIFIED 10/12/2017 KETAN DUARTE GARAGEMAN Ot J44.9 CHRONIC OBSTRUCTIVE PULMONARY DISEASE, U 10/12/2017 MARYCHUY DUARTEINE E GARAGEMAN Ot R05 COUGH 10/12/2017 GERALDMARYCHUY ELLISONINE Anmol GARAGEMAN Ot R06.2 WHEEZING 10/12/2017 GERALD, KETAN Anmol GARAGEMAN Ot F17.201 NICOTINE DEPENDENCE, UNSPECIFIED, IN REM 10/12/2017 GERALD KETAN Anmol GARAGEMAN Ot J44.9 CHRONIC OBSTRUCTIVE PULMONARY DISEASE, U 10/12/2017 GERALD, KETAN Corea GARAGEMAN Ot R05 COUGH 10/12/2017 GERALD KETAN Corea GARAGEMAN Ot R06.2 WHEEZING 10/12/2017 LULÚ MCKEON DO Ot F41. 9 ANXIETY DISORDER, UNSPECIFIED 10/12/2017 LULÚ MCKEON DO Ot J44. 9 CHRONIC OBSTRUCTIVE PULMONARY DISEASE, U 10/12/2017 LULÚ MCKEON DO Ot R06. 02 SHORTNESS OF BREATH 10/12/2017 LULÚ MCKEON DO Ot Z72. 0 TOBACCO USE 10/12/2017 DAPHNE YUSUF Ot D50.9 IRON DEFICIENCY ANEMIA, UNSPECIFIED 10/12/2017 JANEY ALFORD, GRETEL Brannon Ot D50.9 IRON DEFICIENCY ANEMIA, UNSPECIFIED 10/12/2017 JANEY ALFORD, GRETEL Brannon Ot D50.9 IRON DEFICIENCY ANEMIA, UNSPECIFIED 10/12/2017 JANEY ALFORD, GRETEL Brannon Ot Z01.818 ENCOUNTER FOR OTHER PREPROCEDURAL EXAMIN 10/12/2017 JESSICA ALFORD FACC, AUGIE FACP CCDS Ot D63.8 ANEMIA IN OTHER CHRONIC DISEASES CLASSIF 10/12/2017 JESSICA ALFORD FACC, AUGIE FACP CCDS Ot I47.1 SUPRAVENTRICULAR TACHYCARDIA 10/12/2017 JESSICA ALFORD FACC, AUGIE FACP CCDS Ot 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 10/12/2017 JESSICA ALFORD FACC, ALI FACP CCDS Ot M06.9 RHEUMATOID ARTHRITIS, UNSPECIFIED 10/12/2017 JESSICA ALFORD FACC, ALI FACP CCDS Ot M79.89 OTHER SPECIFIED SOFT TISSUE DISORDERS 10/12/2017 JESSICA ALFORD FACC, ALI FACP CCDS Ot R07.89 OTHER CHEST PAIN 10/12/2017 JESSICA ALFORD FACC, ALI FACP CCDS Ot D63.8 ANEMIA IN OTHER CHRONIC DISEASES CLASSIF 10/12/2017 JESSICA ALFORD FACC, ALI FACP CCDS Ot I47.1 SUPRAVENTRICULAR TACHYCARDIA 10/12/2017 JESSICA ALFORD FAC, ALI FACP CCDS Ot 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 10/12/2017 JESSICA ALFORD FAC, ALI FACP CCDS Ot M06.9 RHEUMATOID ARTHRITIS, UNSPECIFIED 10/12/2017 JESSICA ALFORD FAC, ALI FACP CCDS Ot M79.89 OTHER SPECIFIED SOFT TISSUE DISORDERS 10/12/2017 JESSICA ALFORD FAC, ALI FACP CCDS Ot R07.89 OTHER CHEST PAIN 10/12/2017 MARLENA HURTADO Ot E11.59 TYPE 2 DIABETES MELLITUS WITH OTH CIRCUL 10/12/2017 MARLENA HURTADO Ot F17.210 NICOTINE DEPENDENCE, CIGARETTES, UNCOMPL 10/12/2017 MARLENA HURTADO Ot F41.9 ANXIETY DISORDER, UNSPECIFIED 10/12/2017 MARLENA HURTADO Ot I47.1 SUPRAVENTRICULAR TACHYCARDIA 10/12/2017 MARLENA HURTADO Ot I65.23 OCCLUSION AND STENOSIS OF BILATERAL [place] 10/12/2017 MARLENA HURTADO Ot 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 10/12/2017 MARLENA HURTADO Ot I80.209 [facility] 10/12/2017 MARLENA HURTADO Ot J44.9 CHRONIC OBSTRUCTIVE PULMONARY DISEASE, U 10/12/2017 MARLENA HURTADO Ot Z79.899 OTHER ASSISTED (CURRENT) DRUG THERAPY 10/12/2017 JANEY ALFORD, GRETEL Brannon Ot A04.7 ENTEROCOLITIS DUE TO CLOSTRIDIUM DIFFICI 10/12/2017 KETAN DUARTE APRN Ot R09.02 HYPOXEMIA 10/12/2017 KETAN DUARTE APRN Ot R91.1 SOLITARY PULMONARY NODULE 10/12/2017 KETAN DUARTE APRN Ot Z72.0 TOBACCO USE 10/12/2017 LULÚ MCKEON DO Ot F41. 9 ANXIETY DISORDER, UNSPECIFIED 10/12/2017 LULÚ MCKEON DO Ot J43. 8 OTHER EMPHYSEMA 10/12/2017 LULÚ MCKEON DO Ot R06. 02 SHORTNESS OF BREATH 10/13/2017 CECI ALFORD, JUNIOR De La Cruz Ot V58. 61 ANTICOAGULANTS,LT,CURRENT USE 10/13/2017 CECI ALFORD, JUNIOR [place] Ot V58. 83 ENCOUNTER FOR THERAPEUTIC DRUG MONITORIN 10/13/2017 CECI ALFORD, JUNIOR [place] Ot V58. 61 ANTICOAGULANTS,LT,CURRENT USE 10/13/2017 CECI ALFORD, JUNIOR [place] Ot V58. 83 ENCOUNTER FOR THERAPEUTIC DRUG MONITORIN 10/13/2017 SUNDAR ALFORD, JUNIOR Brannon Ot V58.6 1 ANTICOAGULANTS,LT,CURRENT USE 10/13/2017 SUNDAR ALFORD, JUNIOR Brannon Ot V58.8 3 ENCOUNTER FOR THERAPEUTIC DRUG MONITORIN 10/13/2017 SUNDAR ALFORD, JUNIOR Brannon Ot V58.6 1 ANTICOAGULANTS,LT,CURRENT USE 10/13/2017 SUNDAR ALFORD, JUNIOR Brannon Ot V58.8 3 ENCOUNTER FOR THERAPEUTIC DRUG MONITORIN 10/13/2017 MARJORIE EDUARDO [employer] EXEC Ot 305.1 TOBACCO USE DISORDER 10/13/2017 MARJORIE EDUARDO [employer] EXEC Ot 427.0 PAROX ATRIAL TACHYCARDIA 10/13/2017 MARJORIE EDUARDO [employer] EXEC Ot 443.9 PERIPH VASCULAR DIS NOS 10/13/2017 MARJORIE EDUARDO [employer] EXEC Ot 4 96 CHR AIRWAY OBSTRUCT NEC 10/13/2017 DAPHNE YUSUF [employer] EXEC Ot I73.9 PERIPHERAL VASCULAR DISEASE, UNSPECIFIED 10/13/2017 NAM GASPAR [employer]EC Ot R06.02 SHORTNESS OF BREATH 10/13/2017 NAM GASPAR [employer] EXEC Ot R60.9 EDEMA, UNSPECIFIED 10/13/2017 JESSICA ALFORD FACC, AUGIE ELI CCDS Ot R06.02 SHORTNESS OF BREATH 10/13/2017 KETAN DAURTE GARAGEMAN Ot G47.9 SLEEP DISORDER, UNSPECIFIED 10/13/2017 KETAN DUARTE GARAGEMAN Ot J44.9 CHRONIC OBSTRUCTIVE PULMONARY DISEASE, U 10/13/2017 KETAN DUARTE GARAGEMAN Ot R05 COUGH 10/13/2017 KETAN DUARTE GARAGEMAN Ot R06.2 WHEEZING 10/13/2017 KETAN DUARTE GARAGEMAN Ot F17.201 NICOTINE DEPENDENCE, UNSPECIFIED, IN REM 10/13/2017 KETAN DUARTE GARAGEMAN Ot J44.9 CHRONIC OBSTRUCTIVE PULMONARY DISEASE, U 10/13/2017 KETAN DUARTE GARAGEMAN Ot R05 COUGH 10/13/2017 KETAN DUARTE APRN Ot R06.2 WHEEZING 10/13/2017 LULÚ MCKEON DO Ot F41. 9 ANXIETY DISORDER, UNSPECIFIED 10/13/2017 LULÚ MCKEON DO Ot J44. 9 CHRONIC OBSTRUCTIVE PULMONARY DISEASE, U 10/13/2017 LULÚ MCKEON DO Ot R06. 02 SHORTNESS OF BREATH 10/13/2017 LUÚL MCKEON DO Ot Z72. 0 TOBACCO USE 10/13/2017 DAPHNE YUSUF Ot D50.9 IRON DEFICIENCY ANEMIA, UNSPECIFIED 10/13/2017 JANEY ALFORD, GRETEL Brannon Ot D50.9 IRON DEFICIENCY ANEMIA, UNSPECIFIED 10/13/2017 JANEY ALFORD, GRETEL Brannon Ot D50.9 IRON DEFICIENCY ANEMIA, UNSPECIFIED 10/13/2017 JANEY ALFORD, GRETEL Brannon Ot Z01.818 ENCOUNTER FOR OTHER PREPROCEDURAL EXAMIN 10/13/2017 JESSICA ALFORD FACC, ALI FACP CCDS Ot D63.8 ANEMIA IN OTHER CHRONIC DISEASES CLASSIF 10/13/2017 JESSICA ALFORD FACC, ALI FACP CCDS Ot I47.1 SUPRAVENTRICULAR TACHYCARDIA 10/13/2017 JESSICA ALFORD FACC, ALI FACP CCDS Ot 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 10/13/2017 JESSICA ALFORD FACC, ALI FACP CCDS Ot M06.9 RHEUMATOID ARTHRITIS, UNSPECIFIED 10/13/2017 JESSICA ALFORD FACC, ALI FACP CCDS Ot M79.89 OTHER SPECIFIED SOFT TISSUE DISORDERS 10/13/2017 JESSICA ALFORD FACC, ALI FACP CCDS Ot R07.89 OTHER CHEST PAIN 10/13/2017 JESSICA ALFORD FACC, ALI FACP CCDS Ot D63.8 ANEMIA IN OTHER CHRONIC DISEASES CLASSIF 10/13/2017 JESSICA ALFORD FACC, ALI FACP CCDS Ot I47.1 SUPRAVENTRICULAR TACHYCARDIA 10/13/2017 JESSICA ALFORD FACC, ALI FACP CCDS Ot 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 10/13/2017 JESSICA ALFORD FACC, ALI FACP CCDS Ot M06.9 RHEUMATOID ARTHRITIS, UNSPECIFIED 10/13/2017 JESSICA ALFORD FACC, ALI FACP CCDS Ot M79.89 OTHER SPECIFIED SOFT TISSUE DISORDERS 10/13/2017 JESSICA ALFORD FACC, ALI FACP CCDS Ot R07.89 OTHER CHEST PAIN 10/13/2017 MARLENA HURTADO Ot E11.59 TYPE 2 DIABETES MELLITUS WITH OTH CIRCUL 10/13/2017 MARLENA HURTADO Gloria Ot F17.210 NICOTINE DEPENDENCE, CIGARETTES, UNCOMPL 10/13/2017 MARLENA HURTADO Gloria Ot F41.9 ANXIETY DISORDER, UNSPECIFIED 10/13/2017 MARLENA HURTADO Gloria Ot I47.1 SUPRAVENTRICULAR TACHYCARDIA 10/13/2017 MARLENA HURTADO Gloria Ot I65.23 OCCLUSION AND STENOSIS OF BILATERAL [place] 10/13/2017 MARLENA HURTADO Gloria Ot 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 10/13/2017 MARLENA HURTADO Gloria Ot I80.209 PHLBTS AND THOMBOPHLB OF [facility] DEEP VESSE 10/13/2017 MARLENA HURTADO Gloria Ot J44.9 CHRONIC OBSTRUCTIVE PULMONARY DISEASE, U 10/13/2017 MARLENA HURTADO Gloria Ot 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 10/13/2017 JANEY ALFORD, GRETEL Brannon Ot A04.7 ENTEROCOLITIS DUE TO CLOSTRIDIUM DIFFICI 10/13/2017 KETAN DUARTE APRN Ot R09.02 HYPOXEMIA 10/13/2017 KETAN DUARTE APRN Ot R91.1 SOLITARY PULMONARY NODULE 10/13/2017 KETAN DUARTE APRN Ot Z72.0 TOBACCO USE 10/13/2017 LULÚ MCKEON DO Ot F41. 9 ANXIETY DISORDER, UNSPECIFIED 10/13/2017 LULÚ MCKEON DO Ot J43. 8 OTHER EMPHYSEMA 10/13/2017 LULÚ MCKEON DO Ot R06. 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 11/04/2017 DAPHNE YUSUF Ot I70.0 ATHEROSCLEROSIS OF [place] 11/04/2017 MADELIN, DAPHNE [employer]2B MANAGED SERVICE SALES EXEC Ot I70.203 UNSP ATHSCL [place] ARTERIES OF EXTREMITI 11/04/2017 DAPHNE YUSUF B2B MANAGED SERVICE SALES EXEC Ot 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 PERFORATION OR AB 11/20/2017 DAPHNE YUSUF B2B MANAGED SERVICE SALES EXEC Ot I70.0 ATHEROSCLEROSIS OF [place] 11/20/2017 DAPHNE YUSUF B2B MANAGED SERVICE SALES EXEC Ot I70.203 UNSP ATHSCL [place] ARTERIES OF EXTREMITI 11/20/2017 DAPHNE YUSUF B2B MANAGED SERVICE SALES EXEC Ot 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 PERFORATION OR AB 11/27/2017 CECI ALFORD, JUNIOR De La Cruz Ot V58. 61 ANTICOAGULANTS,LT,CURRENT USE 11/27/2017 JUNIOR ORNELAS MD Ot V58. 83 ENCOUNTER FOR THERAPEUTIC DRUG MONITORIN 11/27/2017 JUNIOR ORNELAS MD Ot V58. 61 ANTICOAGULANTS,LT,CURRENT USE 11/27/2017 JUNIOR ORNELAS MD Ot V58. 83 ENCOUNTER FOR THERAPEUTIC DRUG MONITORIN 11/27/2017 JUNIOR KWOK MD Ot V58.6 1 ANTICOAGULANTS,LT,CURRENT USE 11/27/2017 JUNIOR KWOK MD Ot V58.8 3 ENCOUNTER FOR THERAPEUTIC DRUG MONITORIN 11/27/2017 JUNIOR KWOK MD Ot V58.6 1 ANTICOAGULANTS,LT,CURRENT USE 11/27/2017 JUNIOR KWOK MD Ot V58.8 3 ENCOUNTER FOR THERAPEUTIC DRUG MONITORIN 11/27/2017 MARJORIE EDUARDO B2B MANAGED SERVICE SALES EXEC Ot 305.1 TOBACCO USE DISORDER 11/27/2017 MARJORIE EDUARDO B2B MANAGED SERVICE SALES EXEC Ot 427.0 PAROX ATRIAL TACHYCARDIA 11/27/2017 MARJORIE EDUARDO B2B MANAGED SERVICE SALES EXEC Ot 443.9 PERIPH VASCULAR DIS NOS 11/27/2017 MARJORIE EDUARDO B2B MANAGED SERVICE SALES EXEC Ot 4 96 CHR AIRWAY OBSTRUCT NEC 11/27/2017 DAPHNE YUSUF B2B MANAGED SERVICE SALES EXEC Ot I73.9 PERIPHERAL VASCULAR DISEASE, UNSPECIFIED 11/27/2017 NAM GASPAR B2B MANAGED SERVICE SALES EXEC Ot R06.02 SHORTNESS OF BREATH 11/27/2017 NAM GASPAR [employer]2B MANA[employer]ED SERVICE SALES EXEC Ot R60.9 EDEMA, UNSPECIFIED 11/27/2017 JESSICA ALFORD FACC, AUGIE ELI CCDS Ot R06.02 SHORTNESS OF BREATH 11/27/2017 GERALD, KETAN E GARAGEMAN Ot G47.9 SLEEP DISORDER, UNSPECIFIED 11/27/2017 GERALDMARYCHUYKETAN Anmol GARAGEMAN Ot J44.9 CHRONIC OBSTRUCTIVE PULMONARY DISEASE, U 11/27/2017 GERALDMARYCHUY ELLISONINE Anmol GARAGEMAN Ot R05 COUGH 11/27/2017 GERALDMARYCHUY ELLISONINE E GARAGEMAN Ot R06.2 WHEEZING 11/27/2017 GERALDMARYCHUY ELLISONINE Anmol GARAGEMAN Ot F17.201 NICOTINE DEPENDENCE, UNSPECIFIED, IN REM 11/27/2017 GERALD KETAN Anmol GARAGEMAN Ot J44.9 CHRONIC OBSTRUCTIVE PULMONARY DISEASE, U 11/27/2017 GERALDMARYCHUY ELLISONINE Anmol GARAGEMAN Ot R05 COUGH 11/27/2017 GERALDMARYCHUYKETAN Anmol GARAGEMAN Ot R06.2 WHEEZING 11/27/2017 LULÚ MCKEON DO Ot F41. 9 ANXIETY DISORDER, UNSPECIFIED 11/27/2017 LULÚ MCKEON DO Ot J44. 9 CHRONIC OBSTRUCTIVE PULMONARY DISEASE, U 11/27/2017 LULÚ MCKEON DO Ot R06. 02 SHORTNESS OF BREATH 11/27/2017 LULÚ MCKEON DO Ot Z72. 0 TOBACCO USE 11/27/2017 DAPHNE YUSUF Ot D50.9 IRON DEFICIENCY ANEMIA, UNSPECIFIED 11/27/2017 JANEY ALFORD, GRETEL Brannon Ot D50.9 IRON DEFICIENCY ANEMIA, UNSPECIFIED 11/27/2017 JANEY ALFORD, GRETEL Brannon Ot D50.9 IRON DEFICIENCY ANEMIA, UNSPECIFIED 11/27/2017 JANEY ALFORD, GRETEL Brannon Ot Z01.818 ENCOUNTER FOR OTHER PREPROCEDURAL EXAMIN 11/27/2017 JESSICA ALFORD FACC, ALI FACP CCDS Ot D63.8 ANEMIA IN OTHER CHRONIC DISEASES CLASSIF 11/27/2017 JESSICA ALFORD FACC, ALI FACP CCDS Ot I47.1 SUPRAVENTRICULAR TACHYCARDIA 11/27/2017 JESSICA ALFORD FACC, ALI FACP CCDS Ot 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 11/27/2017 JESSICA ALFORD FACC, ALI FACP CCDS Ot M06.9 RHEUMATOID ARTHRITIS, UNSPECIFIED 11/27/2017 JESSICA ALFORD FACC, ALI FACP CCDS Ot M79.89 OTHER SPECIFIED SOFT TISSUE DISORDERS 11/27/2017 JESSICA ALFORD FACC, ALI FACP CCDS Ot R07.89 OTHER CHEST PAIN 11/27/2017 JESSICA ALFORD FACC, ALI FACP CCDS Ot D63.8 ANEMIA IN OTHER CHRONIC DISEASES CLASSIF 11/27/2017 JESSICA ALFORD FACC, ALI FACP CCDS Ot I47.1 SUPRAVENTRICULAR TACHYCARDIA 11/27/2017 JESSICA ALFORD FACJude, ALI FACP CCDS Ot 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 11/27/2017 JESSICA ALFORD FACC, ALI FACP CCDS Ot M06.9 RHEUMATOID ARTHRITIS, UNSPECIFIED 11/27/2017 JESSICA ALFORD FAC, ALI FACP CCDS Ot M79.89 OTHER SPECIFIED SOFT TISSUE DISORDERS 11/27/2017 JESSICA ALFORD FACC, ALI FACP CCDS Ot R07.89 OTHER CHEST PAIN 11/27/2017 MARLENA HURTADO Ot E11.59 TYPE 2 DIABETES MELLITUS WITH OTH CIRCUL 11/27/2017 MARLENA HURTADO Ot F17.210 NICOTINE DEPENDENCE, CIGARETTES, UNCOMPL 11/27/2017 MARLENA HURTADO Ot F41.9 ANXIETY DISORDER, UNSPECIFIED 11/27/2017 MARLENA HURTADO Ot I47.1 SUPRAVENTRICULAR TACHYCARDIA 11/27/2017 MARLENA HURTADO Ot I65.23 OCCLUSION AND STENOSIS OF BILATERAL [place] 11/27/2017 MARLENA HURTADO Ot 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 11/27/2017 MARLENA HURTADO Ot I80.209 PHLBTS AND THOMBOPHLB OF [place]SP DEEP VESSE 11/27/2017 MARLENA HURTADO Ot J44.9 CHRONIC OBSTRUCTIVE PULMONARY DISEASE, U 11/27/2017 MARLENA HURTADO Ot 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 11/27/2017 JANEY ALFORD, GRETEL Brannon Ot A04.7 ENTEROCOLITIS DUE TO CLOSTRIDIUM DIFFICI 11/27/2017 KETAN DUARTE APRN Ot R09.02 HYPOXEMIA 11/27/2017 KETAN DUARTE APRN Ot R91.1 SOLITARY PULMONARY NODULE 11/27/2017 KETAN DUARTE APRN Ot Z72.0 TOBACCO USE 11/27/2017 LULÚ MCKEON DO, Ot F41. 9 ANXIETY DISORDER, UNSPECIFIED 11/27/2017 LULÚ MCKEON DO Ot J43. 8 OTHER EMPHYSEMA 11/27/2017 MIKE IYER LULÚ M Ot R06. 02 SHORTNESS OF BREATH 11/27/2017 DAPHNE YUSUFP Ot I70.0 ATHEROSCLEROSIS OF [place] 11/27/2017 DAPHNE YUSUF B2B MANAGED SERVICE SALES EXEC Ot I70.203 UNSP ATHSCL [place] ARTERIES OF EXTREMITI 11/27/2017 DAPHNE YUSUF B2B MANAGED SERVICE SALES EXEC Ot 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 PERFORATION OR AB 12/03/2017 CECI ALFORD, JUNIOR De La Cruz Ot V58. 61 ANTICOAGULANTS,LT,CURRENT USE 12/03/2017 JUNIOR ORNELAS MD Ot V58. 83 ENCOUNTER FOR THERAPEUTIC DRUG MONITORIN 12/03/2017 JUNIOR ORNELAS MD Ot V58. 61 ANTICOAGULANTS,LT,CURRENT USE 12/03/2017 JUNIOR ORNELAS MD Ot V58. 83 ENCOUNTER FOR THERAPEUTIC DRUG MONITORIN 12/03/2017 JUNIOR KWOK MD Ot V58.6 1 ANTICOAGULANTS,LT,CURRENT USE 12/03/2017 JUNIOR KWOK MD Ot V58.8 3 ENCOUNTER FOR THERAPEUTIC DRUG MONITORIN 12/03/2017 JUNIOR KWOK MD Ot V58.6 1 ANTICOAGULANTS,LT,CURRENT USE 12/03/2017 JUNIOR KWOK MD Ot V58.8 3 ENCOUNTER FOR THERAPEUTIC DRUG MONITORIN 12/03/2017 MARJORIE EDUARDO B2B MANAGED SERVICE SALES EXEC Ot 305.1 TOBACCO USE DISORDER 12/03/2017 MARJORIE EDUARDO B2B MANAGED SERVICE SALES EXEC Ot 427.0 PAROX ATRIAL TACHYCARDIA 12/03/2017 MARJORIE EDUARDO B2B MANAGED SERVICE SALES EXEC Ot 443.9 PERIPH VASCULAR DIS NOS 12/03/2017 MARJORIE EDUARDO B2B MANAGED SERVICE SALES EXEC Ot 4 96 CHR AIRWAY OBSTRUCT NEC 12/03/2017 DAPHNE YUSUF B2B MANAGED SERVICE SALES EXEC Ot I73.9 PERIPHERAL VASCULAR DISEASE, UNSPECIFIED 12/03/2017 NAM GASPAR B2B MANAGED SERVICE SALES EXEC Ot R06.02 SHORTNESS OF BREATH 12/03/2017 NAM GASPAR B2B MANAGED SERVICE SALES EXEC Ot R60.9 EDEMA, UNSPECIFIED 12/03/2017 JESSICA ALFORD FACAUGIE Roque FACP CCDS Ot R06.02 SHORTNESS OF BREATH 12/03/2017 KETAN DUARTE APRN Ot G47.9 SLEEP DISORDER, UNSPECIFIED 12/03/2017 KETAN DUARTE APRN Ot J44.9 CHRONIC OBSTRUCTIVE PULMONARY DISEASE, U 12/03/2017 MARYCHUY DUARTEINE Anmol GARAGEMAN Ot R05 COUGH 12/03/2017 KETAN DUARTE GARAGEMAN Ot R06.2 WHEEZING 12/03/2017 KETAN DUARTE GARAGEMAN Ot F17.201 NICOTINE DEPENDENCE, UNSPECIFIED, IN REM 12/03/2017 MARYCHUY DUARTEINE Anmol GARAGEMAN Ot J44.9 CHRONIC OBSTRUCTIVE PULMONARY DISEASE, U 12/03/2017 GERALD, KETAN Anmol GARAGEMAN Ot R05 COUGH 12/03/2017 KETAN DUARTE GARAGEMAN Ot R06.2 WHEEZING 12/03/2017 LULÚ MCKEON DO Ot F41. 9 ANXIETY DISORDER, UNSPECIFIED 12/03/2017 LULÚ MCKEON DO Ot J44. 9 CHRONIC OBSTRUCTIVE PULMONARY DISEASE, U 12/03/2017 LULÚ MCKEON DO Ot R06. 02 SHORTNESS OF BREATH 12/03/2017 LULÚ MCKEON DO Ot Z72. 0 TOBACCO USE 12/03/2017 DAPHNE YUSUF Ot D50.9 IRON DEFICIENCY ANEMIA, UNSPECIFIED 12/03/2017 JANEY ALFORD, GRETEL Brannon Ot D50.9 IRON DEFICIENCY ANEMIA, UNSPECIFIED 12/03/2017 JANEY ALFORD, GRETEL Brannon Ot D50.9 IRON DEFICIENCY ANEMIA, UNSPECIFIED 12/03/2017 JANEY ALFORD, GRETEL Brannon Ot Z01.818 ENCOUNTER FOR OTHER PREPROCEDURAL EXAMIN 12/03/2017 JESSICA ALFORD FACC, AUGIE FACP CCDS Ot D63.8 ANEMIA IN OTHER CHRONIC DISEASES CLASSIF 12/03/2017 JESSICA ALFORD FACC, ALI FACP CCDS Ot I47.1 SUPRAVENTRICULAR TACHYCARDIA 12/03/2017 JESSICA ALFORD FACC, AUGIE FACP CCDS Ot 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 12/03/2017 JESSICA ALFORD FACC, ALI FACP CCDS Ot M06.9 RHEUMATOID ARTHRITIS, UNSPECIFIED 12/03/2017 JESSICA ALFORD FACC, ALI FACP CCDS Ot M79.89 OTHER SPECIFIED SOFT TISSUE DISORDERS 12/03/2017 JESSICA ALFORD FACC, ALI FACP CCDS Ot R07.89 OTHER CHEST PAIN 12/03/2017 JESSICA ALFORD FACC, ALI FACP CCDS Ot D63.8 ANEMIA IN OTHER CHRONIC DISEASES CLASSIF 12/03/2017 JESSICA ALFORD FAC, ALI FACP CCDS Ot I47.1 SUPRAVENTRICULAR TACHYCARDIA 12/03/2017 JESSICA ALFORD FAC, ALI FACP CCDS Ot 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 12/03/2017 JESSICA ALFORD FACC, ALI FACP CCDS Ot M06.9 RHEUMATOID ARTHRITIS, UNSPECIFIED 12/03/2017 JESSICA ALFORD FACC, ALI FACP CCDS Ot M79.89 OTHER SPECIFIED SOFT TISSUE DISORDERS 12/03/2017 JESSICA GUALLPA, ALI FACP CCDS Ot R07.89 OTHER CHEST PAIN 12/03/2017 MARLENA HURTADO Ot E11.59 TYPE 2 DIABETES MELLITUS WITH OTH CIRCUL 12/03/2017 MARLENA HURTADO Ot F17.210 NICOTINE DEPENDENCE, CIGARETTES, UNCOMPL 12/03/2017 MARLENA HURTADO Ot F41.9 ANXIETY DISORDER, UNSPECIFIED 12/03/2017 MARLENA HURTADO Ot I47.1 SUPRAVENTRICULAR TACHYCARDIA 12/03/2017 MARLENA HURTADO Ot I65.23 OCCLUSION AND STENOSIS OF BILATERAL [place] 12/03/2017 MARLENA HURTADO Ot 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 12/03/2017 MARLENA HURTADO Ot I80.209 PHLBTS AND THOMBOPHLB OF UNSP DEEP VESSE 12/03/2017 MARLENA HURTADO Ot J44.9 CHRONIC OBSTRUCTIVE PULMONARY DISEASE, U 12/03/2017 MARLENA HURTADO Ot 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 12/03/2017 JANEY ALFORD, GRETEL Brannon Ot A04.7 ENTEROCOLITIS DUE TO CLOSTRIDIUM DIFFICI 12/03/2017 KETAN DUARTE APRN Ot R09.02 HYPOXEMIA 12/03/2017 KETAN DUARTE APRN Ot R91.1 SOLITARY PULMONARY NODULE 12/03/2017 KETAN DUARTE APRN Ot Z72.0 TOBACCO USE 12/03/2017 LULÚ MCKEON DO Ot F41. 9 ANXIETY DISORDER, UNSPECIFIED 12/03/2017 LULÚ MCKEON DO Ot J43. 8 OTHER EMPHYSEMA 12/03/2017 LULÚ MCKEON DO Ot R06. 02 SHORTNESS OF BREATH 12/03/2017 DAPHNE YUSUF Ot I70.0 ATHEROSCLEROSIS OF [place] 12/03/2017 DAPHNE YUSUF Ot I70.203 UNSP ATHSCL [place] ARTERIES OF EXTREMITI 12/03/2017 DAPHNE YUSUF Ot 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 PERFORATION OR AB 12/03/2017 PALOMO SALAZAR APRN Ot E78.00 PURE HYPERCHOLESTEROLEMIA, UNSPECIFIED 12/03/2017 PALOMO SALAZAR APRN Ot F03.90 UNSPECIFIED DEMENTIA WITHOUT BEHAVIORAL 12/03/2017 PALOMO SALAZAR APRN Ot F32 .9 MAJOR DEPRESSIVE DISORDER, SINGLE EPISOD 12/03/2017 PALOMO SALAZAR APRN Ot F41 .9 ANXIETY DISORDER, UNSPECIFIED 12/03/2017 PALOMO SALAZAR APRN Ot I10 ESSENTIAL (PRIMARY) HYPERTENSION 12/03/2017 PALOMO SALAZAR APRN Ot I25.10 ATHSCL HEART DISEASE OF [place] CORONARY 12/03/2017 PALOMO SALAZAR APRN Ot I47 .1 SUPRAVENTRICULAR TACHYCARDIA 12/03/2017 PALOMO SALAZAR APRN Ot I48.91 UNSPECIFIED ATRIAL FIBRILLATION 12/03/2017 PALOMO SALAZAR APRN Ot I73 .9 PERIPHERAL VASCULAR DISEASE, UNSPECIFIED 12/03/2017 PALOMO SALAZAR APRN Ot J43 .9 EMPHYSEMA, UNSPECIFIED 12/03/2017 PALOMO SALAZAR APRN Ot K21 .9 GASTRO-ESOPHAGEAL REFLUX DISEASE WITHOUT 12/03/2017 PALOMO SALAZAR APRN Ot M06 .9 RHEUMATOID ARTHRITIS, UNSPECIFIED 12/03/2017 PALOMO SALAZAR APRN Ot R06.02 SHORTNESS OF BREATH 12/03/2017 PALOMO SALAZAR APRN Ot Z79.01 SOCIAL SERVICES COUNSELOR (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 OF ANTICOAGULANT 12/03/2017 PALOMO SALAZAR APRN Ot Z79.51 SOCIAL SERVICES COUNSELOR (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 OF INHALED STERO 12/03/2017 PALOMO SALAZAR APRN Ot Z79.52 SOCIAL SERVICES COUNSELOR (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 OF SYSTEMIC STER 12/03/2017 PALOMO SALAZAR APRN Ot Z79.82 ASSISTED (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 12/03/2017 PALOMO SALAZAR APRN Ot Z80 .1 FAMILY HISTORY OF MALIG NEOPLASM OF TRAC 12/03/2017 PALOMO SALAZAR APRN Ot Z82.49 FAMILY HX OF ISCHEM HEART DIS AND OTH DI 12/03/2017 PALOMO SALAZAR APRN Ot Z86.010 PERSONAL HISTORY OF COLONIC POLYPS 12/03/2017 PALOMO SALAZAR APRN Ot Z86.73 PRSNL HX OF TIA (TIA), AND CEREB INFRC W 12/03/2017 PALOMO SALAZAR APRN Ot Z87.01 PERSONAL HISTORY OF PNEUMONIA (RECURRENT 12/03/2017 PALOMO SALAZAR APRN Ot Z87.19 PERSONAL HISTORY OF OTHER DISEASES OF TH 12/03/2017 PALOMO SALAZAR APRN Ot Z87.891 PERSONAL HISTORY OF NICOTINE DEPENDENCE 12/03/2017 PALOMO SALAZAR APRN Ot Z88 .8 ALLERGY STATUS TO [facility] DRUG/MEDS/BIOL SUB 12/07/2017 PALOMO SALAZAR APRN Ot E78.00 PURE HYPERCHOLESTEROLEMIA, UNSPECIFIED 12/07/2017 PALOMO SALAZAR APRN Ot F03.90 UNSPECIFIED DEMENTIA WITHOUT BEHAVIORAL 12/07/2017 PALOMO SALAZAR APRN Ot F32 .9 MAJOR DEPRESSIVE DISORDER, SINGLE EPISOD 12/07/2017 PALOMO SALAZAR APRN Ot F41 .9 ANXIETY DISORDER, UNSPECIFIED 12/07/2017 PALOMO SALAZAR APRN Ot I10 ESSENTIAL (PRIMARY) HYPERTENSION 12/07/2017 PALOMO SALAZAR APRN Ot I25.10 ATHSCL HEART DISEASE OF [place] CORONARY 12/07/2017 PALOMO SALAZAR APRN Ot I47 .1 SUPRAVENTRICULAR TACHYCARDIA 12/07/2017 PALOMO SALAZAR APRN Ot I48.91 UNSPECIFIED ATRIAL FIBRILLATION 12/07/2017 PALOMO SALAZAR APRN Ot I73 .9 PERIPHERAL VASCULAR DISEASE, UNSPECIFIED 12/07/2017 PALOMO SALAZAR APRN Ot J43 .9 EMPHYSEMA, UNSPECIFIED 12/07/2017 PALOMO SALAZAR APRN Ot K21 .9 GASTRO-ESOPHAGEAL REFLUX DISEASE WITHOUT 12/07/2017 PALOMO SALAZAR APRN Ot M06 .9 RHEUMATOID ARTHRITIS, UNSPECIFIED 12/07/2017 PALOMO SALAZAR APRN Ot R06.02 SHORTNESS OF BREATH 12/07/2017 PALOMO SALAZAR APRN Ot Z79.01 ASSISTED (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 OF ANTICOAGULANT 12/07/2017 PALOMO SALAZAR APRN Ot Z79.51 ASSISTED (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 OF INHALED STERO 12/07/2017 PALOMO SALAZAR APRN Ot Z79.52 ASSISTED (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 OF SYSTEMIC STER 12/07/2017 PALOMO SALAZAR APRN Ot Z79.82 ASSISTED (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 12/07/2017 PALOMO SALAZAR APRN Ot Z80 .1 FAMILY HISTORY OF MALIG NEOPLASM OF [place] 12/07/2017 PALOMO SALAZAR APRN Ot Z82.49 FAMILY HX OF ISCHEM HEART DIS AND OTH DI 12/07/2017 PALOMO SALAZAR APRN Ot Z86.010 PERSONAL HISTORY OF COLONIC POLYPS 12/07/2017 PALOMO SALAZAR APRN Ot Z86.73 PRSNL HX OF TIA (TIA), AND CEREB INFRC W 12/07/2017 PALOMO SALAZAR APRN Ot Z87.01 PERSONAL HISTORY OF PNEUMONIA (RECURRENT 12/07/2017 PALOMO SALAZAR APRN Ot Z87.19 PERSONAL HISTORY OF OTHER DISEASES OF TH 12/07/2017 PALOMO SALAZAR APRN Ot Z87.891 PERSONAL HISTORY OF NICOTINE DEPENDENCE 12/07/2017 PALOMO SALAZAR APRN Ot Z88 .8 ALLERGY STATUS TO OT DRUG/MEDS/BIOL SUB 03/02/2018 ADELE ANN Ot R13.1 2 DYSPHAGIA, OROPHARYNGEAL PHASE 03/02/2018 ADELE ANN Ot R13.1 2 DYSPHAGIA, OROPHARYNGEAL PHASE 03/05/2018 JUNIOR ORNELAS MD Ot V58. 61 ANTICOAGULANTS,LT,CURRENT USE 03/05/2018 JUNIOR ORNELAS MD Ot V58. 83 ENCOUNTER FOR THERAPEUTIC DRUG MONITORIN 03/05/2018 JUNIOR ORNELAS MD Ot V58. 61 ANTICOAGULANTS,LT,CURRENT USE 03/05/2018 JUNIOR ORNELAS MD Ot V58. 83 ENCOUNTER FOR THERAPEUTIC DRUG MONITORIN 03/05/2018 JUNIOR KWOK MD Ot V58.6 1 ANTICOAGULANTS,LT,CURRENT USE 03/05/2018 JUNIOR KWOK MD Ot V58.8 3 ENCOUNTER FOR THERAPEUTIC DRUG MONITORIN 03/05/2018 JUNIOR KWOK MD Ot V58.6 1 ANTICOAGULANTS,LT,CURRENT USE 03/05/2018 JUNIOR KWOK MD Ot V58.8 3 ENCOUNTER FOR THERAPEUTIC DRUG MONITORIN 03/05/2018 MARJORIE EDUARDO B2B MANAGED SERVICE SALES EXEC Ot 305.1 TOBACCO USE DISORDER 03/05/2018 MARJORIE EDUARDO B2B MANAGED SERVICE SALES EXEC Ot 427.0 PAROX ATRIAL TACHYCARDIA 03/05/2018 MARJORIE EDUARDO B2B MANAGED SERVICE SALES EXEC Ot 443.9 PERIPH VASCULAR DIS NOS 03/05/2018 MARJORIE EDUARDO B2B MANAGED SERVICE SALES EXEC Ot 4 96 CHR AIRWAY OBSTRUCT NEC 03/05/2018 DAPHNE YUSUF B2B MANAGED SERVICE SALES EXEC Ot I73.9 PERIPHERAL VASCULAR DISEASE, UNSPECIFIED 03/05/2018 NAM GASPAR B2B MANAGED SERVICE SALES EXEC Ot R06.02 SHORTNESS OF BREATH 03/05/2018 NAM GASPAR B2B MANAGED SERVICE SALES EXEC Ot R60.9 EDEMA, UNSPECIFIED 03/05/2018 JESSICA ALFORD FAC, AUGIE ELI CCDS Ot R06.02 SHORTNESS OF BREATH 03/05/2018 KETAN DUARTE GARAGEMAN Ot G47.9 SLEEP DISORDER, UNSPECIFIED 03/05/2018 MARYCHUY DUARTEINE E GARAGEMAN Ot J44.9 CHRONIC OBSTRUCTIVE PULMONARY DISEASE, U 03/05/2018 MARYCHUY DUARTEINE E GARAGEMAN Ot R05 COUGH 03/05/2018 MARYCHUY DUARTEINE E GARAGEMAN Ot R06.2 WHEEZING 03/05/2018 GERALD, KETAN E GARAGEMAN Ot F17.201 NICOTINE DEPENDENCE, UNSPECIFIED, IN REM 03/05/2018 KETAN DUARTE GARAGEMAN Ot J44.9 CHRONIC OBSTRUCTIVE PULMONARY DISEASE, U 03/05/2018 MARYCHUY DUARTEINE Anmol GARAGEMAN Ot R05 COUGH 03/05/2018 KETAN DUARTE GARAGEMAN Ot R06.2 WHEEZING 03/05/2018 LULÚ MCKEON DO Ot F41. 9 ANXIETY DISORDER, UNSPECIFIED 03/05/2018 LULÚ MCKEON DO Ot J44. 9 CHRONIC OBSTRUCTIVE PULMONARY DISEASE, U 03/05/2018 LULÚ MCKEON DO Ot R06. 02 SHORTNESS OF BREATH 03/05/2018 LULÚ MCKEON DO Ot Z72. 0 TOBACCO USE 03/05/2018 DAPHNE YUSUF [employer] EXEC Ot D50.9 IRON DEFICIENCY ANEMIA, UNSPECIFIED 03/05/2018 JANEY ALFORD, GRETEL Brannon Ot D50.9 IRON DEFICIENCY ANEMIA, UNSPECIFIED 03/05/2018 JANEY ALFORD, GRETEL Brannon Ot D50.9 IRON DEFICIENCY ANEMIA, UNSPECIFIED 03/05/2018 JANEY ALFORD, GRETEL Brannon Ot Z01.818 ENCOUNTER FOR OTHER PREPROCEDURAL EXAMIN 03/05/2018 JESSICA ALFORD FACC, ALI FACP CCDS Ot D63.8 ANEMIA IN OTHER CHRONIC DISEASES CLASSIF 03/05/2018 JESSICA ALFORD FACC, ALI FACP CCDS Ot I47.1 SUPRAVENTRICULAR TACHYCARDIA 03/05/2018 JESSICA ALFORD FACC, ALI FACP CCDS Ot 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 03/05/2018 JESSICA ALFORD FACC, ALI FACP CCDS Ot M06.9 RHEUMATOID ARTHRITIS, UNSPECIFIED 03/05/2018 JESSICA ALFORD FACC, ALI FACP CCDS Ot M79.89 OTHER SPECIFIED SOFT TISSUE DISORDERS 03/05/2018 JESSICA ALFORD FACC, ALI FACP CCDS Ot R07.89 OTHER CHEST PAIN 03/05/2018 JESSICA ALFORD FACC, ALI FACP CCDS Ot D63.8 ANEMIA IN OTHER CHRONIC DISEASES CLASSIF 03/05/2018 JESSICA ALFORD FACC, ALI FACP CCDS Ot I47.1 SUPRAVENTRICULAR TACHYCARDIA 03/05/2018 JESSICA ALFORD FACC, ALI FACP CCDS Ot 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 03/05/2018 JESSICA ALFORD FACC, ALI FACP CCDS Ot M06.9 RHEUMATOID ARTHRITIS, UNSPECIFIED 03/05/2018 JESSICA ALFORD FACC, ALI FACP CCDS Ot M79.89 OTHER SPECIFIED SOFT TISSUE DISORDERS 03/05/2018 JESSICA ALFORD FACC, ALI FACP CCDS Ot R07.89 OTHER CHEST PAIN 03/05/2018 MARLENA HURTADO Ot E11.59 TYPE 2 DIABETES MELLITUS WITH OTH CIRCUL 03/05/2018 MARLENA HURTADO Ot F17.210 NICOTINE DEPENDENCE, CIGARETTES, UNCOMPL 03/05/2018 MARLENA HURTADO Ot F41.9 ANXIETY DISORDER, UNSPECIFIED 03/05/2018 MARLENA HURTADO Ot I47.1 SUPRAVENTRICULAR TACHYCARDIA 03/05/2018 MARLENA HURTADO Ot I65.23 OCCLUSION AND STENOSIS OF BILATERAL [place] 03/05/2018 MARLENA HURTADO Ot 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 03/05/2018 MARLENA HURTADO Ot I80.209 PHLBTS AND THOMBOPHLB OF [facility] DEEP VESSE 03/05/2018 GENESIS, MARLENA Castro Ot J44.9 CHRONIC OBSTRUCTIVE PULMONARY DISEASE, U 03/05/2018 GENESISMARLENA Ot 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 03/05/2018 JANEY ALFORD, GRETEL Brannon Ot A04.7 ENTEROCOLITIS DUE TO CLOSTRIDIUM DIFFICI 03/05/2018 KETAN DUARTE APRN Ot R09.02 HYPOXEMIA 03/05/2018 KETAN DUARTE APRN Ot R91.1 SOLITARY PULMONARY NODULE 03/05/2018 KETAN DUARTE APRN Ot Z72.0 TOBACCO USE 03/05/2018 LULÚ MCKEON DO Ot F41. 9 ANXIETY DISORDER, UNSPECIFIED 03/05/2018 LULÚ MCKEON DO Ot J43. 8 OTHER EMPHYSEMA 03/05/2018 LULÚ MCKEON DO Ot R06. 02 SHORTNESS OF BREATH 03/05/[address] [facility] Ot I70.0 ATHEROSCLEROSIS OF [place] 03/05/[address] [facility] Ot I70.203 [facility] ATHSCL [place] ARTERIES OF EXTREMITI 03/05/[address] [facility] Ot 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 PERFORATION OR AB 03/05/2018 ROMERO BOYER, ADELE Alcocer Ot R13.1 2 DYSPHAGIA, OROPHARYNGEAL PHASE 03/18/2018 DANA HUMPHREY MD Ot E78.00 PURE HYPERCHOLESTEROLEMIA, UNSPECIFIED 03/18/2018 DANA HUMPHREY MD Ot F03.90 UNSPECIFIED DEMENTIA WITHOUT BEHAVIORAL 03/18/2018 DANA HUMPHREY MD Ot F32.9 MAJOR DEPRESSIVE DISORDER, SINGLE EPISOD 03/18/2018 DANA HUMPHREY MD Ot F41.9 ANXIETY DISORDER, UNSPECIFIED 03/18/2018 DANA HUMPHREY MD Ot I10 ESSENTIAL (PRIMARY) HYPERTENSION 03/18/2018 DANA HUMPHREY MD Ot I73.9 PERIPHERAL VASCULAR DISEASE, UNSPECIFIED 03/18/2018 DANA HUMPHREY MD Ot J43.9 EMPHYSEMA, UNSPECIFIED 03/18/2018 DANA HUMPHREY MD Ot K21.9 GASTRO-ESOPHAGEAL REFLUX DISEASE WITHOUT 03/18/2018 DANA HUMPHREY MD Ot K59.00 CONSTIPATION, UNSPECIFIED 03/18/2018 DANA HUMPHREY MD, Ot M06.9 RHEUMATOID ARTHRITIS, UNSPECIFIED 03/18/2018 DANA HUMPHREY MD, Ot T81.4XXA INFECTION FOLLOWING A PROCEDURE, INITIAL 03/18/2018 DANA HUMPHREY MD Ot Z79.01 ASSISTED (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 OF ANTICOAGULANT 03/18/2018 DANA HUMPHREY MD, Ot Z79.51 SOCIAL SERVICES COUNSELOR (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 OF INHALED STERO 03/18/2018 DANA HUMPHREY MD, Ot Z79.52 ASSISTED (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 OF SYSTEMIC STER 03/18/2018 DANA HUMPHREY MD, Ot Z79.82 ASSISTED (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 03/18/2018 DANA HUMPHREY MD, Ot Z80.0 FAMILY HISTORY OF MALIGNANT NEOPLASM OF 03/18/2018 DANA HUMPHREY MD, Ot Z80.1 FAMILY HISTORY OF MALIG NEOPLASM OF TRAC 03/18/2018 DANA HUMPHREY MD Ot Z86.010 PERSONAL HISTORY OF COLONIC POLYPS 03/18/2018 DANA HUMPHREY MD Ot Z86.73 PRSNL HX OF TIA (TIA), AND CEREB INFRC W 03/18/2018 DANA HUMPHREY MD Ot Z87.01 PERSONAL HISTORY OF PNEUMONIA (RECURRENT 03/18/2018 DANA HUMPHREY MD Ot Z87.19 PERSONAL HISTORY OF OTHER DISEASES OF TH 03/18/2018 DANA HUMPHREY MD Ot Z87.891 PERSONAL HISTORY OF NICOTINE DEPENDENCE 03/18/2018 DANA HUMPHREY MD Ot Z88.8 ALLERGY STATUS TO [facility] DRUG/MEDS/BIOL SUB 03/18/2018 DANA HUMPHREY MD Ot Z89.432 ACQUIRED ABSENCE OF LEFT FOOT 03/18/2018 DANA HUMPHREY MD Ot Z93.1 GASTROSTOMY STATUS 03/18/2018 DANA HUMPHREY MD Ot Z96.641 PRESENCE OF RIGHT ARTIFICIAL HIP JOINT 03/18/2018 DANA HUMPHREY MD Ot Z96.651 PRESENCE OF RIGHT ARTIFICIAL KNEE JOINT 03/22/2018 DANA HUMPHREY MD Ot E78.00 PURE HYPERCHOLESTEROLEMIA, UNSPECIFIED 03/22/2018 DANA HUMPHREY MD Ot F03.90 UNSPECIFIED DEMENTIA WITHOUT BEHAVIORAL 03/22/2018 DANA HUMPHREY MD, Ot F32.9 MAJOR DEPRESSIVE DISORDER, SINGLE EPISOD 03/22/2018 DANA HUMPHREY MD, Ot F41.9 ANXIETY DISORDER, UNSPECIFIED 03/22/2018 DANA HUMPHREY MD Ot I10 ESSENTIAL (PRIMARY) HYPERTENSION 03/22/2018 DANA HUMPHREY MD Ot I73.9 PERIPHERAL VASCULAR DISEASE, UNSPECIFIED 03/22/2018 DANA HUMPHREY MD, Ot J43.9 EMPHYSEMA, UNSPECIFIED 03/22/2018 DANA HUMPHREY MD, Ot K21.9 GASTRO-ESOPHAGEAL REFLUX DISEASE WITHOUT 03/22/2018 DANA HUMPHREY MD Ot K59.00 CONSTIPATION, UNSPECIFIED 03/22/2018 DANA HUMPHREY MD Ot M06.9 RHEUMATOID ARTHRITIS, UNSPECIFIED 03/22/2018 DANA HUMPHREY MD Ot T81.4XXA INFECTION FOLLOWING A PROCEDURE, INITIAL 03/22/2018 DANA HUMPHREY MD Ot Z79.01 ASSISTED (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 OF ANTICOAGULANT 03/22/2018 DANA HUMPHREY MD Ot Z79.51 ASSISTED (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 OF INHALED STERO 03/22/2018 DANA HUMPHREY MD Ot Z79.52 ASSISTED (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 OF SYSTEMIC STER 03/22/2018 DANA HUMPHREY MD Ot Z79.82 SOCIAL SERVICES COUNSELOR (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 03/22/2018 DANA HUMPHREY MD Ot Z80.0 FAMILY HISTORY OF MALIGNANT NEOPLASM OF 03/22/2018 DANA HUMPHREY MD Ot Z80.1 FAMILY HISTORY OF MALIG NEOPLASM OF TRAC 03/22/2018 DANA HUMPHREY MD Ot Z86.010 PERSONAL HISTORY OF COLONIC POLYPS 03/22/2018 DANA HUMPHREY MD Ot Z86.73 PRSNL HX OF TIA (TIA), AND CEREB INFRC W 03/22/2018 DANA HUMPHREY MD Ot Z87.01 PERSONAL HISTORY OF PNEUMONIA (RECURRENT 03/22/2018 DANA HUMPHREY MD Ot Z87.19 PERSONAL HISTORY OF OTHER DISEASES OF TH 03/22/2018 DANA HUMPHREY MD, Ot Z87.891 PERSONAL HISTORY OF NICOTINE DEPENDENCE 03/22/2018 DANA HUMPHREY MD, Ot Z88.8 ALLERGY STATUS TO OT DRUG/MEDS/BIOL SUB 03/22/2018 DANA HUMPHREY MD, Ot Z89.432 ACQUIRED ABSENCE OF LEFT FOOT 03/22/2018 DANA HUMPHREY MD, Ot Z93.1 GASTROSTOMY STATUS 03/22/2018 DANA HUMPHREY MD, Ot Z96.641 PRESENCE OF RIGHT ARTIFICIAL HIP JOINT 03/22/2018 DANA HUMPHREY MD, Ot Z96.651 PRESENCE OF RIGHT ARTIFICIAL KNEE JOINT 03/31/2018 ADELE ANN Ot R13.1 2 DYSPHAGIA, OROPHARYNGEAL PHASE 04/05/2018 JUNIOR ORNELAS MD Ot V58. 61 ANTICOAGULANTS,LT,CURRENT USE 04/05/2018 JUNIOR ORNELAS MD Ot V58. 83 ENCOUNTER FOR THERAPEUTIC DRUG MONITORIN 04/05/2018 JUNIOR ORNELAS MD Ot V58. 61 ANTICOAGULANTS,LT,CURRENT USE 04/05/2018 JUNIOR ORNELAS MD Ot V58. 83 ENCOUNTER FOR THERAPEUTIC DRUG MONITORIN 04/05/2018 JUNIOR KWOK MD Ot V58.6 1 ANTICOAGULANTS,LT,CURRENT USE 04/05/2018 JUNIOR KWOK MD Ot V58.8 3 ENCOUNTER FOR THERAPEUTIC DRUG MONITORIN 04/05/2018 JUNIOR KWOK MD Ot V58.6 1 ANTICOAGULANTS,LT,CURRENT USE 04/05/2018 JUNIOR KWOK MD Ot V58.8 3 ENCOUNTER FOR THERAPEUTIC DRUG MONITORIN 04/05/2018 MARJORIE EDUARDO [employer]ED [employer] SALES EXEC Ot 305.1 TOBACCO USE DISORDER 04/05/2018 MARJORIE EDUARDO [employer] SALES EXEC Ot 427.0 PAROX ATRIAL TACHYCARDIA 04/05/2018 MARJORIE EDUARDO B2B MANA[employer]ED SERV[employer] SALES EXEC Ot 443.9 PERIPH VASCULAR DIS NOS 04/05/2018 MARJORIE EDUARDO B2B MANAGED SERVICE SALES EXEC Ot 4 96 CHR AIRWAY OBSTRUCT NEC 04/05/2018 DAPHNE YUSUF B2B MANAGED SERVICE SALES EXEC Ot I73.9 PERIPHERAL VASCULAR DISEASE, UNSPECIFIED 04/05/2018 NAM GASPAR B2B MANA[employer]ED SERVICE SALES EXEC Ot R06.02 SHORTNESS OF BREATH 04/05/2018 GASPAR, NAM R B2B MANAGED SERVICE SALES EXEC Ot R60.9 EDEMA, UNSPECIFIED 04/05/2018 JESSICA ALFORD FACC, ALI FACP CCDS Ot R06.02 SHORTNESS OF BREATH 04/05/2018 KETAN DUARTE GARAGEMAN Ot G47.9 SLEEP DISORDER, UNSPECIFIED 04/05/2018 GERALDKETAN ELLISON GARAGEMAN Ot J44.9 CHRONIC OBSTRUCTIVE PULMONARY DISEASE, U 04/05/2018 GERALDMARYCHUY ELLISONINE E GARAGEMAN Ot R05 COUGH 04/05/2018 GERALDMARYCHUY ELLISONINE E GARAGEMAN Ot R06.2 WHEEZING 04/05/2018 GERALDMARYCHUY ELLISONINE E GARAGEMAN Ot F17.201 NICOTINE DEPENDENCE, UNSPECIFIED, IN REM 04/05/2018 KETAN DUARTE GARAGEMAN Ot J44.9 CHRONIC OBSTRUCTIVE PULMONARY DISEASE, U 04/05/2018 GERALDKETAN ELLISON GARAGEMAN Ot R05 COUGH 04/05/2018 KETAN DUARTE GARAGEMAN Ot R06.2 WHEEZING 04/05/2018 LULÚ MCKEON DO Ot F41. 9 ANXIETY DISORDER, UNSPECIFIED 04/05/2018 LULÚ MCKEON DO Ot J44. 9 CHRONIC OBSTRUCTIVE PULMONARY DISEASE, U 04/05/2018 LULÚ MCKEON DO Ot R06. 02 SHORTNESS OF BREATH 04/05/2018 LULÚ MCKEON DO Ot Z72. 0 TOBACCO USE 04/05/2018 DAPHNE YUSUF Ot D50.9 IRON DEFICIENCY ANEMIA, UNSPECIFIED 04/05/2018 JANEY ALFORD, GRETEL Brannon Ot D50.9 IRON DEFICIENCY ANEMIA, UNSPECIFIED 04/05/2018 JANEY ALFORD, GRETEL Brannon Ot D50.9 IRON DEFICIENCY ANEMIA, UNSPECIFIED 04/05/2018 JANEY ALFORD, GRETEL Brannon Ot Z01.818 ENCOUNTER FOR OTHER PREPROCEDURAL EXAMIN 04/05/2018 JESSICA ALFORD FACC, ALI FACP CCDS Ot D63.8 ANEMIA IN OTHER CHRONIC DISEASES CLASSIF 04/05/2018 JESSICA ALFORD FACC, ALI FACP CCDS Ot I47.1 SUPRAVENTRICULAR TACHYCARDIA 04/05/2018 JESSICA ALFORD FACC, ALI FACP CCDS Ot 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 04/05/2018 JESSICA ALFORD FACC, ALI FACP CCDS Ot M06.9 RHEUMATOID ARTHRITIS, UNSPECIFIED 04/05/2018 JESSICA GUALLPA, ALI FACP CCDS Ot M79.89 OTHER SPECIFIED SOFT TISSUE DISORDERS 04/05/2018 JESSICA ALFORD FACJude, ALI FACP CCDS Ot R07.89 OTHER CHEST PAIN 04/05/2018 JESSICA ALFORD FACJude, ALI FACP CCDS Ot D63.8 ANEMIA IN OTHER CHRONIC DISEASES CLASSIF 04/05/2018 JESSICA ALFORD FACJude, ALI FACP CCDS Ot I47.1 SUPRAVENTRICULAR TACHYCARDIA 04/05/2018 JESSICA ALFORD FAC, ALI FACP CCDS Ot 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 04/05/2018 JESSICA ALFORD FAC, ALI FACP CCDS Ot M06.9 RHEUMATOID ARTHRITIS, UNSPECIFIED 04/05/2018 JESSICA ALFORD FACJude, ALI FACP CCDS Ot M79.89 OTHER SPECIFIED SOFT TISSUE DISORDERS 04/05/2018 JESSICA ALFORD FACJude, ALI FACP CCDS Ot R07.89 OTHER CHEST PAIN 04/05/2018 MARLENA HURTADO Ot E11.59 TYPE 2 DIABETES MELLITUS WITH OTH CIRCUL 04/05/2018 MARLENA HURTADO Ot F17.210 NICOTINE DEPENDENCE, CIGARETTES, UNCOMPL 04/05/2018 MARLENA HURTADO Ot F41.9 ANXIETY DISORDER, UNSPECIFIED 04/05/2018 MARLENA HURTADO Ot I47.1 SUPRAVENTRICULAR TACHYCARDIA 04/05/2018 MARLENA HURTADO Ot I65.23 OCCLUSION AND STENOSIS OF BILATERAL HERNANDEZ 04/05/2018 MARLENA HURTADO Ot 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 04/05/2018 MARLENA HURTADO Ot I80.209 PHLBTS AND THOMBOPHLB OF UNSP DEEP VESSE 04/05/2018 MARLENA HURTADO Ot J44.9 CHRONIC OBSTRUCTIVE PULMONARY DISEASE, U 04/05/2018 MARLENA HURTADO Ot Z79.899 OTHER ASSISTED (CURRENT) DRUG THERAPY 04/05/2018 JANEY ALFORD, GRETEL Brannon Ot A04.7 ENTEROCOLITIS DUE TO CLOSTRIDIUM DIFFICI 04/05/2018 KETAN DUARTE APRN Ot R09.02 HYPOXEMIA 04/05/2018 KETAN DUARTE APRN Ot R91.1 SOLITARY PULMONARY NODULE 04/05/2018 GERALD, KETAN E GARAGEMAN Ot Z72.0 TOBACCO USE 04/05/2018 LULÚ MCKEON DO Ot F41. 9 ANXIETY DISORDER, UNSPECIFIED 04/05/2018 LULÚ MCKEON DO Ot J43. 8 OTHER EMPHYSEMA 04/05/2018 LULÚ MCKEON DO Ot R06. 02 SHORTNESS OF BREATH 04/05/2018 DAPHEN YUSUF B2B MANAGED SERVICE SALES EXEC Ot I70.0 ATHEROSCLEROSIS OF [place] 04/05/2018 DAPHNE YUSUF [employer]2B MANAGED SERVICE SALES EXEC Ot I70.203 UNSP ATHSCL [place] ARTERIES OF EXTREMITI 04/05/2018 DAPHNE YUSUF B2B MANAGED SERVICE SALES EXEC Ot 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 PERFORATION OR AB 04/05/2018 ROMERO BOYER, ADELE Alcocer Ot R13.1 2 DYSPHAGIA, OROPHARYNGEAL PHASE 04/08/2018 JESSICA ALFORD FACC, AUGIE FACP CCDS Ot E11.9 TYPE 2 DIABETES MELLITUS WITHOUT COMPLIC 04/08/2018 JESSICA ALFORD FACC, AUGIE FACP CCDS Ot E66.9 OBESITY, UNSPECIFIED 04/08/2018 JESSICA ALFORD FACC, ALI FACP CCDS Ot I69.322 DYSARTHRIA FOLLOWING CEREBRAL INFARCTION 04/08/2018 JESSICA ALFORD FACC, ALI FACP CCDS Ot I69.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 FOLLOWING CEREBRAL INFRC AFF RI 04/08/2018 JESSICA ALFORD FACC, AUGIE FACP CCDS Ot I73.9 PERIPHERAL VASCULAR DISEASE, UNSPECIFIED 04/08/2018 JESSICA ALFORD FACC, ALI FACP CCDS Ot J44.9 CHRONIC OBSTRUCTIVE PULMONARY DISEASE, U 04/08/2018 JESSICA ALFORD FACC, AUGIE FACP CCDS Ot R00.2 PALPITATIONS 04/08/2018 JESSICA ALFORD FACC, ALI FACP CCDS Ot Z68.31 BODY MASS INDEX (BMI) 31.0-31.9, ADULT 04/08/2018 AUGIE FONG MD, FACC FACP CCDS Ot Z79.01 ASSISTED (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 OF ANTICOAGULANT 04/08/2018 JESSICA ALFORD FACC, ALI FACP CCDS Ot Z79.82 SOCIAL SERVICES COUNSELOR (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 04/08/2018 JESSICA ALFORD FACC ALI FACP CCDS Ot Z79.899 OTHER ASSISTED (CURRENT) DRUG THERAPY 04/08/2018 JESSICA ALFORD FACC ALI FACP CCDS Ot Z86.718 PERSONAL HISTORY OF OTHER VENOUS THROMBO 04/08/2018 JESSICA ALFORD FACC, ALI FACP CCDS Ot Z87.891 PERSONAL HISTORY OF NICOTINE DEPENDENCE 04/08/2018 JESSICA ALFORD FACC, ALI FACP CCDS Ot Z95.820 PERIPHERAL VASCULAR ANGIOPLASTY STATUS W 04/09/2018 ADELE ANN Ot R13.1 2 DYSPHAGIA, OROPHARYNGEAL PHASE 04/27/2018 JESSICA ALFORD FACC, ALI FACP CCDS Ot E11.9 TYPE 2 DIABETES MELLITUS WITHOUT COMPLIC 04/27/2018 JESSICA ALFORD FACC, ALI FACP CCDS Ot E66.9 OBESITY, UNSPECIFIED 04/27/2018 JESSICA ALFORD FACC, ALI FACP CCDS Ot I69.322 DYSARTHRIA FOLLOWING CEREBRAL INFARCTION 04/27/2018 JESSICA ALFORD FACC, ALI FACP CCDS Ot I69.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 FOLLOWING CEREBRAL INFRC AFF RI 04/27/2018 JESSICA ALFODR FACC, ALI FACP CCDS Ot I73.9 PERIPHERAL VASCULAR DISEASE, UNSPECIFIED 04/27/2018 JESSICA ALFORD FACC, ALI FACP CCDS Ot J44.9 CHRONIC OBSTRUCTIVE PULMONARY DISEASE, U 04/27/2018 JESSICA ALFORD FACC, ALI FACP CCDS Ot R00.2 PALPITATIONS 04/27/2018 JESSICA ALFORD FACC, ALI FACP CCDS Ot Z68.31 BODY MASS INDEX (BMI) 31.0-31.9, ADULT 04/27/2018 JESSICA ALFORD FACC, ALI FACP CCDS Ot Z79.01 SOCIAL SERVICES COUNSELOR (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 OF ANTICOAGULANT 04/27/2018 JESSICA ALFORD FACC, ALI FACP CCDS Ot Z79.82 ASSISTED (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 04/27/2018 JESSICA ALFORD FACC, ALI FACP CCDS Ot Z79.899 OTHER ASSISTED (CURRENT) DRUG THERAPY 04/27/2018 JESSICA ALFORD FACC, ALI FACP CCDS Ot Z86.718 PERSONAL HISTORY OF OTHER VENOUS THROMBO 04/27/2018 JESSICA ALFORD FACC, ALI FACP CCDS Ot Z87.891 PERSONAL HISTORY OF NICOTINE DEPENDENCE 04/27/2018 JESSICA ALFORD FACC, ALI FACP CCDS Ot Z95.820 PERIPHERAL VASCULAR ANGIOPLASTY STATUS W 08/17/2018 JUNIOR ORNELAS MD Ot V58. 61 ANTICOAGULANTS,LT,CURRENT USE 08/17/2018 CECI ALFORD, JUNIOR De La Cruz Ot V58. 83 ENCOUNTER FOR THERAPEUTIC DRUG MONITORIN 08/17/2018 CECI ALFORD, JUNIOR De La Cruz Ot V58. 61 ANTICOAGULANTS,LT,CURRENT USE 08/17/2018 CECI ALFORD, JUNIOR De La Cruz Ot V58. 83 ENCOUNTER FOR THERAPEUTIC DRUG MONITORIN 08/17/2018 SUNDAR ALFORD, JUNIOR Brannon Ot V58.6 1 ANTICOAGULANTS,LT,CURRENT USE 08/17/2018 SUNDAR ALFORD, JUNIOR Brannon Ot V58.8 3 ENCOUNTER FOR THERAPEUTIC DRUG MONITORIN 08/17/2018 SUNDAR ALFORD, JUNIOR Brannon Ot V58.6 1 ANTICOAGULANTS,LT,CURRENT USE 08/17/2018 SUNDAR ALFORD, JUNIOR Brannon Ot V58.8 3 ENCOUNTER FOR THERAPEUTIC DRUG MONITORIN 08/17/2018 MARJORIE EDUARDO B2B MANAGED SERVICE SALES EXEC Ot 305.1 TOBACCO USE DISORDER 08/17/2018 MARJORIE EDUARDO B2B MANAGED SERVICE SALES EXEC Ot 427.0 PAROX ATRIAL TACHYCARDIA 08/17/2018 MARJORIE EDUARDO B2B MANAGED SERVICE SALES EXEC Ot 443.9 PERIPH VASCULAR DIS NOS 08/17/2018 MARJORIE EDUARDO B2B MANAGED SERVICE SALES EXEC Ot 4 96 CHR AIRWAY OBSTRUCT NEC 08/17/2018 DAPHNE YUSUF B2B MANAGED SERVICE SALES EXEC Ot I73.9 PERIPHERAL VASCULAR DISEASE, UNSPECIFIED 08/17/2018 NAM GASPAR B2B MANAGED SERVICE SALES EXEC Ot R06.02 SHORTNESS OF BREATH 08/17/2018 NAM GASPAR B2B MANAGED SERVICE SALES EXEC Ot R60.9 EDEMA, UNSPECIFIED 08/17/2018 JESSICA ALFORD FAC, AUGIE FACP CCDS Ot R06.02 SHORTNESS OF BREATH 08/17/2018 KETAN DUARTE GARAGEMAN Ot G47.9 SLEEP DISORDER, UNSPECIFIED 08/17/2018 KETAN DUARTE GARAGEMAN Ot J44.9 CHRONIC OBSTRUCTIVE PULMONARY DISEASE, U 08/17/2018 KETAN DUARTE GARAGEMAN Ot R05 COUGH 08/17/2018 KETAN DUARTE GARAGEMAN Ot R06.2 WHEEZING 08/17/2018 KETAN DUARTE GARAGEMAN Ot F17.201 NICOTINE DEPENDENCE, UNSPECIFIED, IN REM 08/17/2018 KETAN DUARTE GARAGEMAN Ot J44.9 CHRONIC OBSTRUCTIVE PULMONARY DISEASE, U 08/17/2018 KETAN DUARTE GARAGEMAN Ot R05 COUGH 08/17/2018 KETAN DUARTE APRN Ot R06.2 WHEEZING 08/17/2018 LULÚ MCKEON DO Ot F41. 9 ANXIETY DISORDER, UNSPECIFIED 08/17/2018 LULÚ MCKEON DO Ot J44. 9 CHRONIC OBSTRUCTIVE PULMONARY DISEASE, U 08/17/2018 LULÚ MCKEON DO Ot R06. 02 SHORTNESS OF BREATH 08/17/2018 LULÚ MCKEON DO Ot Z72. 0 TOBACCO USE 08/17/2018 DAPHNE YUSUF Ot D50.9 IRON DEFICIENCY ANEMIA, UNSPECIFIED 08/17/2018 JANEY ALFORD, GRETEL Brannon Ot D50.9 IRON DEFICIENCY ANEMIA, UNSPECIFIED 08/17/2018 JANEY ALFORD, GRETEL Brannon Ot D50.9 IRON DEFICIENCY ANEMIA, UNSPECIFIED 08/17/2018 JANEY ALFORD, GRETEL Brannon Ot Z01.818 ENCOUNTER FOR OTHER PREPROCEDURAL EXAMIN 08/17/2018 JESSICA ALFORD FACC, ALI FACP CCDS Ot D63.8 ANEMIA IN OTHER CHRONIC DISEASES CLASSIF 08/17/2018 JESSICA ALFORD FACC, ALI FACP CCDS Ot I47.1 SUPRAVENTRICULAR TACHYCARDIA 08/17/2018 JESSICA ALFORD FACC, ALI FACP CCDS Ot 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 08/17/2018 JESSICA ALFORD FACC, ALI FACP CCDS Ot M06.9 RHEUMATOID ARTHRITIS, UNSPECIFIED 08/17/2018 JESSICA ALFORD FACC, ALI FACP CCDS Ot M79.89 OTHER SPECIFIED SOFT TISSUE DISORDERS 08/17/2018 JESSICA ALFORD FACC, ALI FACP CCDS Ot R07.89 OTHER CHEST PAIN 08/17/2018 JESSICA ALFORD FACC, ALI FACP CCDS Ot D63.8 ANEMIA IN OTHER CHRONIC DISEASES CLASSIF 08/17/2018 JESSICA ALFORD FACC, ALI FACP CCDS Ot I47.1 SUPRAVENTRICULAR TACHYCARDIA 08/17/2018 JESSICA ALFORD FACC, ALI FACP CCDS Ot 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 08/17/2018 JESSICA ALFORD FACC, ALI FACP CCDS Ot M06.9 RHEUMATOID ARTHRITIS, UNSPECIFIED 08/17/2018 JESSICA ALFORD FACC, ALI FACP CCDS Ot M79.89 OTHER SPECIFIED SOFT TISSUE DISORDERS 08/17/2018 JESSICA ALFORD FACC, ALI FACP CCDS Ot R07.89 OTHER CHEST PAIN 08/17/2018 MARLENA HURTADO Gloria Ot E11.59 TYPE 2 DIABETES MELLITUS WITH OTH CIRCUL 08/17/2018 MARLENA HURTADO Gloria Ot F17.210 NICOTINE DEPENDENCE, CIGARETTES, UNCOMPL 08/17/2018 MARLENA HURTADO Gloria Ot F41.9 ANXIETY DISORDER, UNSPECIFIED 08/17/2018 MARLENA HURTADO Gloria Ot I47.1 SUPRAVENTRICULAR TACHYCARDIA 08/17/2018 MARLENA HURTADO Gloria Ot I65.23 OCCLUSION AND STENOSIS OF BILATERAL HERNANDEZ 08/17/2018 GENESIS NEOTRI Gloria Ot 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 08/17/2018 GENESIS MARLENA Gloria Ot I80.209 PHLBTS AND THOMBOPHLB OF UNSP DEEP VESSE 08/17/2018 GENESIS MARLENA Gloria Ot J44.9 CHRONIC OBSTRUCTIVE PULMONARY DISEASE, U 08/17/2018 MARLENA HURTADO Gloria Ot Z79.899 OTHER ASSISTED (CURRENT) DRUG THERAPY 08/17/2018 JANEY ALFORD, GRETEL Brannon Ot A04.7 ENTEROCOLITIS DUE TO CLOSTRIDIUM DIFFICI 08/17/2018 KETAN DUARTE APRN Ot R09.02 HYPOXEMIA 08/17/2018 KETAN DUARTE APRN Ot R91.1 SOLITARY PULMONARY NODULE 08/17/2018 KETAN DUARTE APRN Ot Z72.0 TOBACCO USE 08/17/2018 LULÚ MCKEON DO Ot F41. 9 ANXIETY DISORDER, UNSPECIFIED 08/17/2018 LULÚ MCKEON DO Ot J43. 8 OTHER EMPHYSEMA 08/17/2018 LULÚ MCKEON DO Ot R06. 02 SHORTNESS OF BREATH 08/17/2018 DAPHNE YUSUF Ot I70.0 ATHEROSCLEROSIS OF [place] 08/17/2018 DAPHNE YUSUF Ot I70.203 UNSP ATHSCL [place] ARTERIES OF EXTREMITI 08/17/2018 DAPHNE YUSUF Ot 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 PERFORATION OR AB 08/17/2018 ADELE ANN Ot R13.1 2 DYSPHAGIA, OROPHARYNGEAL PHASE 08/17/2018 JESSICA ALFORD FAC, ALI FAC CCDS Ot E11.9 TYPE 2 DIABETES MELLITUS WITHOUT COMPLIC 08/17/2018 JESSICA GUALLPA, ALI FACP CCDS Ot E66.9 OBESITY, UNSPECIFIED 08/17/2018 JESSICA ALFORD FACC, ALI FACP CCDS Ot I69.322 DYSARTHRIA FOLLOWING CEREBRAL INFARCTION 08/17/2018 JESSICA ALFORD FACC, ALI FACP CCDS Ot I69.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 FOLLOWING CEREBRAL INFRC AFF RI 08/17/2018 JESSICA ALFORD FACC, ALI FACP CCDS Ot I73.9 PERIPHERAL VASCULAR DISEASE, UNSPECIFIED 08/17/2018 JESSICA GUALLPA, ALI FACP CCDS Ot J44.9 CHRONIC OBSTRUCTIVE PULMONARY DISEASE, U 08/17/2018 JESSICA ALFORD FACC, ALI FACP CCDS Ot R00.2 PALPITATIONS 08/17/2018 JESSICA ALFORD FACC, ALI FACP CCDS Ot Z68.31 BODY MASS INDEX (BMI) 31.0-31.9, ADULT 08/17/2018 JESSICA ALFORD FACC, ALI FACP CCDS Ot Z79.01 ASSISTED (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 OF ANTICOAGULANT 08/17/2018 JESSICA ALFORD FACC, ALI FACP CCDS Ot Z79.82 SOCIAL SERVICES COUNSELOR (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 08/17/2018 JESSICA ALFORD FACC, ALI FACP CCDS Ot 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 08/17/2018 JESSICA ALFORD FACC, ALI FACP CCDS Ot Z86.718 PERSONAL HISTORY OF OTHER VENOUS THROMBO 08/17/2018 JESSICA ALFORD FACC, ALI FACP CCDS Ot Z87.891 PERSONAL HISTORY OF NICOTINE DEPENDENCE 08/17/2018 JESSICA ALFORD FACC, ALI FACP CCDS Ot Z95.820 PERIPHERAL VASCULAR ANGIOPLASTY STATUS W 09/02/2018 JUNIOR ORNELAS MD Ot V58. 61 ANTICOAGULANTS,LT,CURRENT USE 09/02/2018 JUNIOR ORNELAS MD Ot V58. 83 ENCOUNTER FOR THERAPEUTIC DRUG MONITORIN 09/02/2018 JUNIOR ORNELAS MD Ot V58. 61 ANTICOAGULANTS,LT,CURRENT USE 09/02/2018 JUNIOR ORNELAS MD Ot V58. 83 ENCOUNTER FOR THERAPEUTIC DRUG MONITORIN 09/02/2018 JUNIOR KWOK MD Ot V58.6 1 ANTICOAGULANTS,LT,CURRENT USE 09/02/2018 JUNIOR KWOK MD Ot V58.8 3 ENCOUNTER FOR THERAPEUTIC DRUG MONITORIN 09/02/2018 JUNIOR KWOK MD Ot V58.6 1 ANTICOAGULANTS,LT,CURRENT USE 09/02/2018 JUNIOR KWOK MD Ot V58.8 3 ENCOUNTER FOR THERAPEUTIC DRUG MONITORIN 09/02/2018 YURIMARJORIE KOLB Carlyn B2B MANAGED SERVICE SALES EXEC Ot 305.1 TOBACCO USE DISORDER 09/02/2018 ALESHAMARJORIE L B2B MANAGED SERVICE SALES EXEC Ot 427.0 PAROX ATRIAL TACHYCARDIA 09/02/2018 ALESHAMARJORIE L B2B MANAGED SERVICE SALES EXEC Ot 443.9 PERIPH VASCULAR DIS NOS 09/02/2018 ALESHA MARJORIE L B2B MANAGED SERVICE SALES EXEC Ot 4 96 CHR AIRWAY OBSTRUCT NEC 09/02/2018 DAPHNE YUSUF B2B MANAGED SERVICE SALES EXEC Ot I73.9 PERIPHERAL VASCULAR DISEASE, UNSPECIFIED 09/02/2018 NAM GASPAR B2B MANAGED SERVICE SALES EXEC Ot R06.02 SHORTNESS OF BREATH 09/02/2018 NAM GASPAR B2B MANAGED SERVICE SALES EXEC Ot R60.9 EDEMA, UNSPECIFIED 09/02/2018 JESSICA ALFORD FACC, AUGIE FACP CCDS Ot R06.02 SHORTNESS OF BREATH 09/02/2018 KETAN DUARTE E GARAGEMAN Ot G47.9 SLEEP DISORDER, UNSPECIFIED 09/02/2018 MARYCHUY DUARTEINE E GARAGEMAN Ot J44.9 CHRONIC OBSTRUCTIVE PULMONARY DISEASE, U 09/02/2018 MARYCHUY DUARTEINE E GARAGEMAN Ot R05 COUGH 09/02/2018 MARYCHUY DUARTEINE E GARAGEMAN Ot R06.2 WHEEZING 09/02/2018 GERALD, KETAN E GARAGEMAN Ot F17.201 NICOTINE DEPENDENCE, UNSPECIFIED, IN REM 09/02/2018 KETAN DUARTE GARAGEMAN Ot J44.9 CHRONIC OBSTRUCTIVE PULMONARY DISEASE, U 09/02/2018 MARYCHUY DUARTEINE E GARAGEMAN Ot R05 COUGH 09/02/2018 MARYCHUY DUARTEINE E GARAGEMAN Ot R06.2 WHEEZING 09/02/2018 LULÚ MCKEON DO Ot F41. 9 ANXIETY DISORDER, UNSPECIFIED 09/02/2018 LULÚ MCKEON DO Ot J44. 9 CHRONIC OBSTRUCTIVE PULMONARY DISEASE, U 09/02/2018 LULÚ MCKEON DO Ot R06. 02 SHORTNESS OF BREATH 09/02/2018 LULÚ MCKEON DO Ot Z72. 0 TOBACCO USE 09/02/2018 MADELINDAPHNE PADILLA Ot D50.9 IRON DEFICIENCY ANEMIA, UNSPECIFIED 09/02/2018 JANEY ALFORD, GRETEL Brannon Ot D50.9 IRON DEFICIENCY ANEMIA, UNSPECIFIED 09/02/2018 JANEY ALFORD, GRETEL Brannon Ot D50.9 IRON DEFICIENCY ANEMIA, UNSPECIFIED 09/02/2018 JANEY ALFORD, GRETEL Brannon Ot Z01.818 ENCOUNTER FOR OTHER PREPROCEDURAL EXAMIN 09/02/2018 JESSICA ALFORD FACC, ALI FACP CCDS Ot D63.8 ANEMIA IN OTHER CHRONIC DISEASES CLASSIF 09/02/2018 JESSICA ALFORD FACC, ALI FACP CCDS Ot I47.1 SUPRAVENTRICULAR TACHYCARDIA 09/02/2018 JESSICA ALFORD FACC, ALI FACP CCDS Ot 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 09/02/2018 JESSICA ALFORD FACC, ALI FACP CCDS Ot M06.9 RHEUMATOID ARTHRITIS, UNSPECIFIED 09/02/2018 JESSICA ALFORD FACC, ALI FACP CCDS Ot M79.89 OTHER SPECIFIED SOFT TISSUE DISORDERS 09/02/2018 JESSICA ALFORD FACC, ALI FACP CCDS Ot R07.89 OTHER CHEST PAIN 09/02/2018 JESSICA ALFORD FACC, ALI FACP CCDS Ot D63.8 ANEMIA IN OTHER CHRONIC DISEASES CLASSIF 09/02/2018 JESSICA ALFORD FACC, ALI FACP CCDS Ot I47.1 SUPRAVENTRICULAR TACHYCARDIA 09/02/2018 JESSICA ALFORD FACC, ALI FACP CCDS Ot 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 09/02/2018 JESSICA ALFORD FACC, ALI FACP CCDS Ot M06.9 RHEUMATOID ARTHRITIS, UNSPECIFIED 09/02/2018 JESSICA ALFORD FACC, ALI FACP CCDS Ot M79.89 OTHER SPECIFIED SOFT TISSUE DISORDERS 09/02/2018 JESSICA ALFORD FACC, ALI FACP CCDS Ot R07.89 OTHER CHEST PAIN 09/02/2018 MARLENA HURTADO Ot E11.59 TYPE 2 DIABETES MELLITUS WITH OTH CIRCUL 09/02/2018 MARLENA HURTADO Ot F17.210 NICOTINE DEPENDENCE, CIGARETTES, UNCOMPL 09/02/2018 MARLENA HURTADO Ot F41.9 ANXIETY DISORDER, UNSPECIFIED 09/02/2018 MARLENA HURTADO Ot I47.1 SUPRAVENTRICULAR TACHYCARDIA 09/02/2018 MARLENA HURTADO Ot I65.23 OCCLUSION AND STENOSIS OF BILATERAL [place] 09/02/2018 GENESISMARLENA Ot 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 09/02/2018 GENESISMARLENA Ot I80.209 PHLBTS AND THOMBOPHLB OF UNSP DEEP VESSE 09/02/2018 GENESISMARLNEA Ot J44.9 CHRONIC OBSTRUCTIVE PULMONARY DISEASE, U 09/02/2018 GENESISMARLENA Ot 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 09/02/2018 JANEY ALFORD, GRETEL Brannon Ot A04.7 ENTEROCOLITIS DUE TO CLOSTRIDIUM DIFFICI 09/02/2018 KETAN DUARTE APRN Ot R09.02 HYPOXEMIA 09/02/2018 KETAN DUARTE APRN Ot R91.1 SOLITARY PULMONARY NODULE 09/02/2018 KETAN DUARTE APRN Ot Z72.0 TOBACCO USE 09/02/2018 LULÚ MCKEON DO Ot F41. 9 ANXIETY DISORDER, UNSPECIFIED 09/02/2018 LULÚ MCKEON DO Ot J43. 8 OTHER EMPHYSEMA 09/02/2018 LULÚ MCKEON DO Ot R06. 02 SHORTNESS OF BREATH 09/02/2018 DAPHNE YUSUF Ot I70.0 ATHEROSCLEROSIS OF AORTA 09/02/2018 DAPHNE YUSUF Ot I70.203 UNSP ATHSCL [place] ARTERIES OF EXTREMITI 09/02/2018 DAPHNE YUSUF Ot 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 PERFORATION OR AB 09/02/2018 ADELE ANN Ot R13.1 2 DYSPHAGIA, OROPHARYNGEAL PHASE 09/02/2018 JESSICA ALFORD FACC, AUGIE FACP CCDS Ot E11.9 TYPE 2 DIABETES MELLITUS WITHOUT COMPLIC 09/02/2018 JESSICA ALFORD FACC, AUGIE FACP CCDS Ot E66.9 OBESITY, UNSPECIFIED 09/02/2018 JESSICA ALFORD FACC, ALI FACP CCDS Ot I69.322 DYSARTHRIA FOLLOWING CEREBRAL INFARCTION 09/02/2018 JESSICA ALFORD FACC, AUGIE FACP CCDS Ot I69.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 FOLLOWING CEREBRAL INFRC AFF RI 09/02/2018 JESSICA ALFORD FACC, AUGIE FACP CCDS Ot I73.9 PERIPHERAL VASCULAR DISEASE, UNSPECIFIED 09/02/2018 JESSICA ALFORD FACC, AUGIE FACP CCDS Ot J44.9 CHRONIC OBSTRUCTIVE PULMONARY DISEASE, U 09/02/2018 JESSICA ALFORD FACC, AUGIE FACP CCDS Ot R00.2 PALPITATIONS 09/02/2018 JESSICA ALFORD FACC, ALI FACP CCDS Ot Z68.31 BODY MASS INDEX (BMI) 31.0-31.9, ADULT 09/02/2018 JESSICA ALFORD FACC, AUGIE FACP CCDS Ot Z79.01 ASSISTED (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 OF ANTICOAGULANT 09/02/2018 JESSICA ALFORD FACC, AUGIE FACP CCDS Ot Z79.82 SOCIAL SERVICES COUNSELOR (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 09/02/2018 JESSICA ALFORD FACC, AUGIE FACP CCDS Ot Z79.899 OTHER ASSISTED (CURRENT) DRUG THERAPY 09/02/2018 JESSICA ALFORD FACC, AUGIE FACP CCDS Ot Z86.718 PERSONAL HISTORY OF OTHER VENOUS THROMBO 09/02/2018 JESSICA ALFORD FACC, AUGIE FACP CCDS Ot Z87.891 PERSONAL HISTORY OF NICOTINE DEPENDENCE 09/02/2018 JESSICA ALFORD FACC, ALI FACP CCDS Ot Z95.820 PERIPHERAL VASCULAR ANGIOPLASTY STATUS W 09/02/2018 MARJORIE EDUARDO B2B MANAGED SERVICE SALES EXEC Ot I08.1 RHEUMATIC DISORDERS OF BOTH MITRAL AND T 09/02/2018 MARJORIE EDUARDO B2B MANAGED SERVICE SALES EXEC Ot I48.3 TYPICAL ATRIAL FLUTTER 09/02/2018 PALOMO SALAZAR APRN Ot E78.00 PURE HYPERCHOLESTEROLEMIA, UNSPECIFIED 09/02/2018 PALOMO SALAZAR APRN Ot F03.90 UNSPECIFIED DEMENTIA WITHOUT BEHAVIORAL 09/02/2018 PALOMO SALAZAR GARAGEMAN Ot F32 .9 MAJOR DEPRESSIVE DISORDER, SINGLE EPISOD 09/02/2018 PALOMO SALAZAR APRN Ot F41 .9 ANXIETY DISORDER, UNSPECIFIED 09/02/2018 PALOMO SALAZAR APRN Ot I10 ESSENTIAL (PRIMARY) HYPERTENSION 09/02/2018 PALOMO SALAZAR APRN Ot I73 .9 PERIPHERAL VASCULAR DISEASE, UNSPECIFIED 09/02/2018 PALOMO SALAZAR APRN Ot J43 .9 EMPHYSEMA, UNSPECIFIED 09/02/2018 PALOMO SALAZAR APRN Ot M06 .9 RHEUMATOID ARTHRITIS, UNSPECIFIED 09/02/2018 PALOMO SALAZAR APRN Ot M79.672 PAIN IN LEFT FOOT 09/02/2018 PALOMO SALAZAR APRN Ot Z79.01 SOCIAL SERVICES COUNSELOR (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 OF ANTICOAGULANT 09/02/2018 PALOMO SALAZAR APRN Ot Z79.51 SOCIAL SERVICES COUNSELOR (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 OF INHALED STERO 09/02/2018 PALOMO SALAZAR APRN Ot Z79.52 ASSISTED (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 OF SYSTEMIC STER 09/02/2018 PALOMO SALAZAR APRN Ot Z79.82 SOCIAL SERVICES COUNSELOR (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 09/02/2018 PALOMO SALAZAR APRN Ot Z80 .1 FAMILY HISTORY OF MALIG NEOPLASM OF TRAC 09/02/2018 PALOMO SALAZAR APRN Ot Z82.49 FAMILY HX OF ISCHEM HEART DIS AND OTH DI 09/02/2018 PALOMO SALAZAR APRN Ot Z85.819 PRSNL HX OF MALIG NEOPLM OF UNSP SITE LI 09/02/2018 PALOMO SALAZAR APRN Ot Z86.73 PRSNL HX OF TIA (TIA), AND [facility] INFRC W 09/02/2018 PALOMO SALAZAR APRN Ot Z87.19 PERSONAL HISTORY OF OTHER DISEASES OF TH 09/02/2018 PALOMO SALAZAR APRN Ot Z87.891 PERSONAL HISTORY OF NICOTINE DEPENDENCE 09/02/2018 PALOMO SALAZAR APRN Ot Z88 .0 ALLERGY STATUS TO PENICILLIN 09/02/2018 PALOMO SALAZAR APRN Ot Z89.432 ACQUIRED ABSENCE OF LEFT FOOT 09/02/2018 PALOMO SALAZAR APRN Ot Z95.820 PERIPHERAL VASCULAR ANGIOPLASTY STATUS W 09/02/2018 PALOMO SALAZAR APRN Ot Z98.890 OTHER SPECIFIED POSTPROCEDURAL STATES 09/02/2018 PALOMO SALAZAR APRN Ot Z99.81 DEPENDENCE ON SUPPLEMENTAL OXYGEN 09/06/2018 PALOMO SALAZAR APRN Ot E78.00 PURE HYPERCHOLESTEROLEMIA, UNSPECIFIED 09/06/2018 PALOMO SALAZAR APRN Ot F03.90 UNSPECIFIED DEMENTIA WITHOUT BEHAVIORAL 09/06/2018 PALOMO SALAZAR APRN Ot F32 .9 MAJOR DEPRESSIVE DISORDER, SINGLE EPISOD 09/06/2018 PALOMO SALAZAR APRN Ot F41 .9 ANXIETY DISORDER, UNSPECIFIED 09/06/2018 PALOMO SALAZAR APRN Ot I10 ESSENTIAL (PRIMARY) HYPERTENSION 09/06/2018 PALOMO SALAZAR APRN Ot I73 .9 PERIPHERAL VASCULAR DISEASE, UNSPECIFIED 09/06/2018 PALOMO SALAZAR APRN Ot J43 .9 EMPHYSEMA, UNSPECIFIED 09/06/2018 PALOMO SALAZAR APRN Ot M06 .9 RHEUMATOID ARTHRITIS, UNSPECIFIED 09/06/2018 PALOMO SALAZAR APRN Ot M79.672 PAIN IN LEFT FOOT 09/06/2018 PALOMO SALAZAR APRN Ot Z79.01 ASSISTED (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 OF ANTICOAGULANT 09/06/2018 PALOMO SALAZAR APRN Ot Z79.51 SOCIAL SERVICES COUNSELOR (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 OF INHALED STERO 09/06/2018 PALOMO SALAZAR APRN Ot Z79.52 ASSISTED (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 OF SYSTEMIC STER 09/06/2018 PALOMO SALAZAR APRN Ot Z79.82 SOCIAL SERVICES COUNSELOR (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 09/06/2018 PALOMO SALAZAR APRN Ot Z80 .1 FAMILY HISTORY OF MALIG NEOPLASM OF [place] 09/06/2018 PALOMO SALAZAR APRN Ot Z82.49 FAMILY HX OF ISCHEM HEART DIS AND OTH DI 09/06/2018 PALOMO SALAZAR APRN Ot Z85.819 PRSNL H[facility] OF [facility] 09/06/2018 PALOMO SALAZAR APRN Ot Z86.73 PRSNL HX OF TIA (TIA), AND CEREB INFRC W 09/06/2018 PALOMO SALAZAR APRN Ot Z87.19 PERSONAL HISTORY OF OTHER DISEASES OF TH 09/06/2018 PALOMO SALAZAR APRN Ot Z87.891 PERSONAL HISTORY OF NICOTINE DEPENDENCE 09/06/2018 PALOMO SALAZAR APRN Ot Z88 .0 ALLERGY STATUS TO PENICILLIN 09/06/2018 PALOMO SALAZAR APRN Ot Z89.432 ACQUIRED ABSENCE OF LEFT FOOT 09/06/2018 PALOMO SALAZAR APRN Ot Z95.820 PERIPHERAL VASCULAR ANGIOPLASTY STATUS W 09/06/2018 PALOMO SALAZAR APRN Ot Z98.890 OTHER SPECIFIED POSTPROCEDURAL STATES 09/06/2018 PALOMO SALAZAR APRN Ot Z99.81 DEPENDENCE ON SUPPLEMENTAL OXYGEN 09/08/2018 MARJORIE EDUARDO Ot I08.1 RHEUMATIC DISORDERS OF BOTH [place] AND T 09/08/2018 BAIMA, MARJORIE L [employer]2B MANA[employer]ED SERV[employer] SALES EXEC Ot I48.3 TYPICAL ATRIAL FLUTTER 10/12/2018 DAPHNE YUSUF [employer]2B MANAGED SERVICE SALES EXEC Ot R59.0 LOCALIZED ENLARGED LYMPH NODES 10/12/2018 MADELINDAPHNE PADILLA B2B MANAGED SERVICE SALES EXEC Ot Z98.890 OTHER SPECIFIED POSTPROCEDURAL STATES 10/13/2018 DAPHNE YUSUF B2B MANAGED SERVICE SALES EXEC Ot R59.0 LOCALIZED ENLARGED LYMPH NODES 10/13/2018 DAPHNE YUSUF [employer]2B MANAGED SERVICE SALES EXEC Ot Z85.819 PRSNL HX OF MALIG NEOPLM OF [facility] SITE LI 10/13/2018 DAPHNE YUSUF B2B MANAGED SERVICE SALES EXEC Ot Z98.890 OTHER SPECIFIED POSTPROCEDURAL STATES 10/25/2018 DAPHNE YUSUF B2B MANAGED SERVICE SALES EXEC Ot R59.0 LOCALIZED ENLARGED LYMPH NODES 10/25/2018 MADELINDAPHNE PADILLA B2B MANAGED SERVICE SALES EXEC Ot Z98.890 OTHER SPECIFIED POSTPROCEDURAL STATES 10/26/2018 DAPHNE YUSUF B2B MANAGED SERVICE SALES EXEC Ot R59.0 LOCALIZED ENLARGED LYMPH NODES 10/26/2018 DAPHNE YUSUF B2B MANAGED SERVICE SALES EXEC Ot Z85.819 PRSNL HX OF MALIG NEOPLM OF [facility] SITE LI 10/26/2018 DAPHNE YUSUF B2B MANAGED SERVICE SALES EXEC Ot Z98.890 OTHER SPECIFIED POSTPROCEDURAL STATES 10/30/2018 MARLENA HURTADO Ot E11.59 TYPE 2 DIABETES MELLITUS WITH OTH CIRCUL 10/30/2018 MARLENA HURTADO Ot F17.210 NICOTINE DEPENDENCE, CIGARETTES, UNCOMPL 10/30/2018 MARLENA HURTADO Ot F41.9 ANXIETY DISORDER, UNSPECIFIED 10/30/2018 MARLENA HURTADO Ot I47.1 SUPRAVENTRICULAR TACHYCARDIA 10/30/2018 MARLENA HURTADO Ot I65.23 OCCLUSION AND STENOSIS OF BILATERAL HERNANDEZ 10/30/2018 MARLENA HURTADO Ot 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 10/30/2018 MARLENA HURTADO Ot I80.209 PHLBTS AND THOMBOPHLB OF [facility] DEEP VESSE 10/30/2018 MARLENA HURTADO Ot J44.9 CHRONIC OBSTRUCTIVE PULMONARY DISEASE, U 10/30/2018 MARLENA HURTADO Ot 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 10/30/2018 DANA HUMPHREY MD Ot E78.00 PURE HYPERCHOLESTEROLEMIA, UNSPECIFIED 10/30/2018 DANA HUMPHREY MD Ot F03.90 UNSPECIFIED DEMENTIA WITHOUT BEHAVIORAL 10/30/2018 DANA HUMPHREY MD Ot F32.9 MAJOR DEPRESSIVE DISORDER, SINGLE EPISOD 10/30/2018 DANA HUMPHREY MD Ot F41.9 ANXIETY DISORDER, UNSPECIFIED 10/30/2018 DANA HUMPHREY MD Ot I10 ESSENTIAL (PRIMARY) HYPERTENSION 10/30/2018 DANA HUMPHREY MD Ot I73.9 PERIPHERAL VASCULAR DISEASE, UNSPECIFIED 10/30/2018 DANA HUMPHREY MD, Ot J06.9 ACUTE UPPER RESPIRATORY INFECTION, UNSPE 10/30/2018 DANA HUMPHREY MD, Ot J43.9 EMPHYSEMA, UNSPECIFIED 10/30/2018 DANA HUMPHREY MD, Ot M06.9 RHEUMATOID ARTHRITIS, UNSPECIFIED 10/30/2018 DANA HUMPHREY MD Ot R50.9 FEVER, UNSPECIFIED 10/30/2018 DANA HUMPHREY MD Ot Z79.01 SOCIAL SERVICES COUNSELOR (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 OF ANTICOAGULANT 10/30/2018 DANA HUMPHREY MD Ot Z79.52 SOCIAL SERVICES COUNSELOR (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 OF SYSTEMIC STER 10/30/2018 DANA HUMPHREY MD Ot Z79.82 ASSISTED (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 10/30/2018 DANA HUMPHREY MD Ot Z80.1 FAMILY HISTORY OF MALIG NEOPLASM OF [place] 10/30/2018 DANA HUMPHREY MD Ot Z82.49 FAMILY HX OF ISCHEM HEART DIS AND OTH DI 10/30/2018 DANA HUMPHREY MD Ot Z85.819 PRSNL HX OF MALIG NEOPLM OF UNSP SITE LI 10/30/2018 DANA HUMPHREY MD Ot Z86.19 PERSONAL HISTORY OF OTHER INFECTIOUS AND 10/30/2018 DANA HUMPHREY MD Ot Z86.73 PRSNL HX OF TIA (TIA), AND CEREB INFRC W 10/30/2018 DANA HUMPHREY MD Ot Z87.19 PERSONAL HISTORY OF OTHER DISEASES OF TH 10/30/2018 DANA HUMPHREY MD Ot Z87.891 PERSONAL HISTORY OF NICOTINE DEPENDENCE 10/30/2018 KAM ALFORD, DANA Pradhan Ot Z88.8 ALLERGY STATUS TO OTH DRUG/MEDS/BIOL SUB 10/30/2018 KAM ALFORD, DANA Pradhan Ot Z93.1 GASTROSTOMY STATUS 10/30/2018 KAM ALFORD, DANA Pradhan Ot Z95.820 PERIPHERAL VASCULAR ANGIOPLASTY STATUS W 10/30/2018 KAM ALFORD, DANA Pradhan Ot Z99.81 DEPENDENCE ON SUPPLEMENTAL OXYGEN 04/20/2019 KETAN DUARTE APRN Ot G47.36 SLEEP RELATED HYPOVENTILATION IN CONDITI 04/20/2019 KETAN DUARTE APRN Ot I25.10 ATHSCL HEART DISEASE OF [place] CORONARY 04/20/2019 KETAN DUARTE GARAGEMAN Ot J30.9 ALLERGIC RHINITIS, UNSPECIFIED 04/20/2019 KETAN DUARTE GARAGEMAN Ot J44.9 CHRONIC OBSTRUCTIVE PULMONARY DISEASE, U 04/20/2019 KETAN DUARTE APRN Ot K80.20 CALCULUS OF GALLBLADDER W/O CHOLECYSTITI 04/20/2019 KETAN DUARTE GARAGEMAN Ot R91.8 OTHER NONSPECIFIC ABNORMAL FINDING OF [place] 04/20/2019 KETAN DUARTE GARAGEMAN Ot Z72.0 TOBACCO USE 05/05/2019 MARJORIE EDUARDOP Ot I48.92 UNSPECIFIED ATRIAL FLUTTER 05/10/2019 KETAN DUARTE GARAGEMAN Ot G47.36 SLEEP RELATED HYPOVENTILATION IN CONDITI 05/10/2019 KETAN DUARTE GARAGEMAN Ot I25.10 ATHSCL HEART DISEASE OF [place] CORONARY 05/10/2019 KETAN DUARTE GARAGEMAN Ot J30.9 ALLERGIC RHINITIS, UNSPECIFIED 05/10/2019 KETAN DUARTE GARAGEMAN Ot J44.9 CHRONIC OBSTRUCTIVE PULMONARY DISEASE, U 05/10/2019 KETAN DUARTE GARAGEMAN Ot K80.20 CALCULUS OF GALLBLADDER W/O CHOLECYSTITI 05/10/2019 KETAN DUARTE GARAGEMAN Ot R91.8 OTHER NONSPECIFIC ABNORMAL FINDING OF [place] 05/10/2019 KETAN DUARTE GARAGEMAN Ot Z72.0 TOBACCO USE 05/25/2019 MARJORIE EDUARDOP Ot I48.92 UNSPECIFIED ATRIAL FLUTTER 06/06/2019 MARCUS MONACO MD Ot 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, ORAL 06/07/2019 JEANNE EASON DO Ot Z01.8 18 ENCOUNTER FOR OTHER PREPROCEDURAL EXAMIN 06/08/2019 JEANNE EASON DO Ot Z01.8 18 ENCOUNTER FOR OTHER PREPROCEDURAL EXAMIN 06/08/2019 JEANNE EASON DO Ot 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.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, UN 06/08/2019 JEANNE EASON DO Ot D50.9 IRON DEFICIENCY ANEMIA, UNSPECIFIED 06/08/2019 JEANNE EASON DO Ot E11.4 0 TYPE 2 DIABETES MELLITUS WITH DIABETIC N 06/08/2019 JEANNE EASON DO Ot E11.5 2 TYPE 2 DIABETES W DIABETIC PERIPHERAL AN 06/08/2019 JEANNE EASON DO Ot F32.9 MAJOR DEPRESSIVE DISORDER, SINGLE EPISOD 06/08/2019 JEANNE EASON DO Ot F41.9 ANXIETY DISORDER, UNSPECIFIED 06/08/2019 JEANNE EASON DO Ot G47.3 6 SLEEP RELATED HYPOVENTILATION IN CONDITI 06/08/2019 JEANNE AESON DO Ot I47.1 SUPRAVENTRICULAR TACHYCARDIA 06/08/2019 JEANNE EASON DO Ot I48.9 2 UNSPECIFIED ATRIAL FLUTTER 06/08/2019 JEANNE EASON DO Ot I65.2 9 OCCLUSION AND STENOSIS OF UNSPECIFIED CA 06/08/2019 JEANNE EASON DO Ot I73.9 PERIPHERAL VASCULAR DISEASE, UNSPECIFIED 06/08/2019 JEANNE EASON DO Ot I82.4 09 ACUTE EMBOLISM AND THOMBOS UNSP DEEP VN 06/08/2019 JEANNE EASON DO Ot I87.2 VENOUS INSUFFICIENCY (CHRONIC) (PERIPHER 06/08/2019 JEANNE EASON DO Ot J44.9 CHRONIC OBSTRUCTIVE PULMONARY DISEASE, U 06/08/2019 JEANNE EASON DO Ot M06.9 RHEUMATOID ARTHRITIS, UNSPECIFIED 06/08/2019 JEANNE EASON DO Ot Z79.8 2 ASSISTED (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 06/08/2019 JEANNE EASON DO Ot Z79.8 99 OTHER SOCIAL SERVICES COUNSELOR (CURRENT) DRUG THERAPY 06/08/2019 JEANNE EASON DO Ot Z80.9 FAMILY HISTORY OF MALIGNANT NEOPLASM, UN 06/08/2019 JEANNE EASON DO Ot Z82.4 9 FAMILY HX OF ISCHEM HEART DIS AND OTH DI 06/08/2019 JEANNE EASON DO Ot Z87.8 91 PERSONAL HISTORY OF NICOTINE DEPENDENCE 06/08/2019 JEANNE EASON DO Ot Z88.1 ALLERGY STATUS TO OTHER ANTIBIOTIC AGENT 06/08/2019 JEANNE EASON DO Ot Z88.8 ALLERGY STATUS TO OTH DRUG/MEDS/BIOL SUB 06/08/2019 JEANNE EASON DO Ot Z89.4 39 ACQUIRED ABSENCE OF UNSPECIFIED FOOT 06/13/2019 JACINDA ALFORD, MARCUS Ot 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, ORAL 06/15/2019 JEANNE EASON DO Ot C04.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, UN 06/15/2019 JEANNE EASON DO Ot D50.9 IRON DEFICIENCY ANEMIA, UNSPECIFIED 06/15/2019 JEANNE EASON DO Ot E11.4 0 TYPE 2 DIABETES MELLITUS WITH DIABETIC N 06/15/2019 JEANNE EASON DO Ot E11.5 2 TYPE 2 DIABETES W DIABETIC PERIPHERAL AN 06/15/2019 JEANNE EASON DO Ot F32.9 MAJOR DEPRESSIVE DISORDER, SINGLE EPISOD 06/15/2019 JEANNE EASON DO Ot F41.9 ANXIETY DISORDER, UNSPECIFIED 06/15/2019 JEANNE EASON DO Ot G47.3 6 SLEEP RELATED HYPOVENTILATION IN CONDITI 06/15/2019 JEANNE EASON DO Ot I47.1 SUPRAVENTRICULAR TACHYCARDIA 06/15/2019 JEANNE EASON DO Ot I48.9 2 UNSPECIFIED ATRIAL FLUTTER 06/15/2019 JEANNE EASON DO Ot I65.2 9 OCCLUSION AND STENOSIS OF UNSPECIFIED CA 06/15/2019 JEANNE EASON DO Ot I73.9 PERIPHERAL VASCULAR DISEASE, UNSPECIFIED 06/15/2019 JEANNE EASON DO Ot I82.4 09 ACUTE EMBOLISM AND THOMBOS UNSP DEEP VN 06/15/2019 JEANNE EASON DO Ot I87.2 VENOUS INSUFFICIENCY (CHRONIC) (PERIPHER 06/15/2019 JEANNE EASON DO Ot J44.9 CHRONIC OBSTRUCTIVE PULMONARY DISEASE, U 06/15/2019 DELMAN DO, JEANNE B Ot M06.9 RHEUMATOID ARTHRITIS, UNSPECIFIED 06/15/2019 JEANNE EASON DO Ot Z79.8 2 ASSISTED (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 06/15/2019 JEANNE EASON DO Ot Z79.8 99 OTHER ASSISTED (CURRENT) DRUG THERAPY 06/15/2019 JEANNE EASON DO Ot Z80.9 FAMILY HISTORY OF MALIGNANT NEOPLASM, UN 06/15/2019 JEANNE EASON DO Ot Z82.4 9 FAMILY HX OF ISCHEM HEART DIS AND OTH DI 06/15/2019 JEANNE EASON DO Ot Z87.8 91 PERSONAL HISTORY OF NICOTINE DEPENDENCE 06/15/2019 JEANNE EASON DO Ot Z88.1 ALLERGY STATUS TO OTHER ANTIBIOTIC AGENT 06/15/2019 JEANNE EASON DO Ot Z88.8 ALLERGY STATUS TO OT DRUG/MEDS/BIOL SUB 06/15/2019 JEANNE EASON DO Ot Z89.4 39 ACQUIRED ABSENCE OF UNSPECIFIED FOOT 07/05/2019 MARLENA HURTADO Ot E11.59 TYPE 2 DIABETES MELLITUS WITH OTH CIRCUL 07/05/2019 MARLENA HURTADO Ot F17.210 NICOTINE DEPENDENCE, CIGARETTES, UNCOMPL 07/05/2019 MARLENA HURTADO Ot F41.9 ANXIETY DISORDER, UNSPECIFIED 07/05/2019 MARLENA HURTADO Ot I47.1 SUPRAVENTRICULAR TACHYCARDIA 07/05/2019 MARLENA HURTADO Ot I65.23 OCCLUSION AND STENOSIS OF BILATERAL HERNANDEZ 07/05/2019 MARLENA HURTADO Ot 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 07/05/2019 MARLENA HURTADO Ot I80.209 PHLBTS AND THOMBOPHLB OF UNSP DEEP VESSE 07/05/2019 MARLENA HURTADO Ot J44.9 CHRONIC OBSTRUCTIVE PULMONARY DISEASE, U 07/05/2019 MARLENA HURTADO Ot Z79.899 OTHER ASSISTED (CURRENT) DRUG THERAPY 07/05/2019 JACINDA ALFORD, MARCUS Ot 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, ORAL 07/05/2019 JEANNE EASON DO Ot Z01.8 18 ENCOUNTER FOR OTHER PREPROCEDURAL EXAMIN 07/07/2019 DELMAN DO, JEANNE B Ot Z01.8 18 ENCOUNTER FOR OTHER PREPROCEDURAL EXAMIN 07/08/2019 JENARO DO, JEANNE B Ot E46 UNSPECIFIED PROTEIN-CALORIE MALNUTRITION 07/08/2019 JENARO DO, JEANNE B Ot G62.9 POLYNEUROPATHY, UNSPECIFIED 07/08/2019 JENARO DO, JEANNE B Ot J44.9 CHRONIC OBSTRUCTIVE PULMONARY DISEASE, U 07/08/2019 JENARO DO, JEANNE B Ot K25.9 GASTRIC ULCER, UNSP ACUTE OR CHRONIC, 07/08/2019 JENARO DO, JEANNE B Ot K44.9 DIAPHRAGMATIC HERNIA WITHOUT OBSTRUCTION 07/08/2019 JENARO DO, JEANNE B Ot Z85.8 18 PRSNL HX OF MALIG NEOPLM OF SITE OF LIP, 07/08/2019 JENARO DO, JEANNE B Ot Z86.7 3 PRSNL HX OF TIA (TIA), AND CEREB INFRC W 07/08/2019 JENARO IYER, JEANNE B Ot Z88.1 ALLERGY STATUS TO OTHER ANTIBIOTIC AGENT 07/08/2019 MARCUS MONACO MD Ot 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, ORAL 07/14/2019 JENARO DO, JEANNE B Ot E46 UNSPECIFIED PROTEIN-[place] MALNUTRITION 07/14/2019 JENARO DO, JEANNE B Ot G62.9 POLYNEUROPATHY, UNSPECIFIED 07/14/2019 JENARO DO, JEANNE B Ot J44.9 CHRONIC OBSTRUCTIVE PULMONARY DISEASE, U 07/14/2019 JENARO DO, JEANNE B Ot K25.9 GASTRIC ULCER, UNSP ACUTE OR CHRONIC, 07/14/2019 JENARO IYER, JEANNE B Ot K44.9 DIAPHRAGMATIC HERNIA WITHOUT OBSTRUCTION 07/14/2019 JENARO DO, JEANNE B Ot Z85.8 18 PRSNL HX OF MALIG NEOPLM OF SITE OF LIP, 07/14/2019 JENARO DO, JEANNE B Ot Z86.7 3 PRSNL HX OF TIA (TIA), AND CEREB INFRC W 07/14/2019 JENARO DO, JEANNE B Ot Z88.1 ALLERGY STATUS TO OTHER ANTIBIOTIC AGENT 07/14/2019 MARCUS MONACO MD Ot 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, ORAL 07/14/2019 MARCUS MONACO MD Ot Z51.0 ENCOUNTER FOR ANTINEOPLASTIC RADIATION T 07/14/2019 MARCUS MONACO MD Ot Z51.11 ENCOUNTER FOR ANTINEOPLASTIC CHEMOTHERAP 07/14/2019 DAPHNE YUSUF B2B MANAGED SERVICE SALES EXEC Ot I73.9 PERIPHERAL VASCULAR DISEASE, UNSPECIFIED 07/14/2019 NAM GASPAR B2B MANAGED SERVICE SALES EXEC Ot R06.02 SHORTNESS OF BREATH 07/14/2019 NAM GASPAR B2B MANAGED SERVICE SALES EXEC Ot R60.9 EDEMA, UNSPECIFIED 07/14/2019 JESSICA ALFORD FAC, AUGIE ELI CCDS Ot R06.02 SHORTNESS OF BREATH 07/14/2019 GERALD, KETAN E GARAGEMAN Ot G47.9 SLEEP DISORDER, UNSPECIFIED 07/14/2019 GERALD, KETAN E GARAGEMAN Ot J44.9 CHRONIC OBSTRUCTIVE PULMONARY DISEASE, U 07/14/2019 GERALD, KETAN E GARAGEMAN Ot R05 COUGH 07/14/2019 GERALD, KETAN E GARAGEMAN Ot R06.2 WHEEZING 07/14/2019 GERALD, KETAN E GARAGEMAN Ot F17.201 NICOTINE DEPENDENCE, UNSPECIFIED, IN REM 07/14/2019 GERALD, KETAN E GARAGEMAN Ot J44.9 CHRONIC OBSTRUCTIVE PULMONARY DISEASE, U 07/14/2019 GERALD, KETAN E GARAGEMAN Ot R05 COUGH 07/14/2019 GERALD, KETAN E GARAGEMAN Ot R06.2 WHEEZING 07/14/2019 LULÚ MCKEON DO Ot F41. 9 ANXIETY DISORDER, UNSPECIFIED 07/14/2019 LULÚ MCKEON DO Ot J44. 9 CHRONIC OBSTRUCTIVE PULMONARY DISEASE, U 07/14/2019 LULÚ MCKEON DO Ot R06. 02 SHORTNESS OF BREATH 07/14/2019 LULÚ MCKEON DO Ot Z72. 0 TOBACCO USE 07/14/2019 DAPHNE YUSUFP Ot D50.9 IRON DEFICIENCY ANEMIA, UNSPECIFIED 07/14/2019 JANEY ALFORD, GRETEL Brannon Ot D50.9 IRON DEFICIENCY ANEMIA, UNSPECIFIED 07/14/2019 JANEY ALFORD, GRETEL Brannon Ot D50.9 IRON DEFICIENCY ANEMIA, UNSPECIFIED 07/14/2019 JANEY ALFORD, GRETEL Brannon Ot Z01.818 ENCOUNTER FOR OTHER PREPROCEDURAL EXAMIN 07/14/2019 JESSICA ALFORD FAC, AUGIE ELI CCDS Ot D63.8 ANEMIA IN OTHER CHRONIC DISEASES CLASSIF 07/14/2019 JESSICA ALFORD FACC, ALI FACP CCDS Ot I47.1 SUPRAVENTRICULAR TACHYCARDIA 07/14/2019 JESSICA MD [facility], ALI FACP CCDS Ot 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 07/14/2019 JESSICA ALFORD [facility], ALI FACP CCDS Ot M06.9 RHEUMATOID ARTHRITIS, UNSPECIFIED 07/14/2019 JESSICA MD [facility], ALI FACP CCDS Ot M79.89 OTHER SPECIFIED SOFT TISSUE DISORDERS 07/14/2019 JESSICA MD [facility], ALI FACP CCDS Ot R07.89 OTHER CHEST PAIN 07/14/2019 JESSICA MD [facility], ALI FACP CCDS Ot D63.8 ANEMIA IN OTHER CHRONIC DISEASES CLASSIF 07/14/2019 JESSICA ALFORD [facility], ALI FACP CCDS Ot I47.1 SUPRAVENTRICULAR TACHYCARDIA 07/14/2019 JESSICA MD [facility], ALI FACP CCDS Ot 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 07/14/2019 JESSICA ALFORD [facility], ALI FACP CCDS Ot M06.9 RHEUMATOID ARTHRITIS, UNSPECIFIED 07/14/2019 JESSICA ALFORD [facility], ALI FACP CCDS Ot M79.89 OTHER SPECIFIED SOFT TISSUE DISORDERS 07/14/2019 JESSICA ALFORD [facility], ALI FACP CCDS Ot R07.89 OTHER CHEST PAIN 07/14/2019 MARLENA HURTADO Ot E11.59 TYPE 2 DIABETES MELLITUS WITH OTH CIRCUL 07/14/2019 MARLENA HURTADO Ot F17.210 NICOTINE DEPENDENCE, CIGARETTES, UNCOMPL 07/14/2019 MARLENA HURTADO Ot F41.9 ANXIETY DISORDER, UNSPECIFIED 07/14/2019 MARLENA HURTADO Ot I47.1 SUPRAVENTRICULAR TACHYCARDIA 07/14/2019 MARLENA HURTADO Ot I65.23 OCCLUSION AND STENOSIS OF BILATERAL HERNANDEZ 07/14/2019 MARLENA HURTADO Ot 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 07/14/2019 MARLENA HURTADO Ot I80.209 PHLBTS AND THOMBOPHLB OF UNSP DEEP VESSE 07/14/2019 MARLENA HURTADO Ot J44.9 CHRONIC OBSTRUCTIVE PULMONARY DISEASE, U 07/14/2019 MARLENA HURTADO Ot Z79.899 OTHER ASSISTED (CURRENT) DRUG THERAPY 07/14/2019 JANEY ALFORD, GRETEL Brannon Ot A04.7 ENTEROCOLITIS DUE TO CLOSTRIDIUM DIFFICI 07/14/2019 KETAN DUARTE APRN Ot R09.02 HYPOXEMIA 07/14/2019 KETAN DUARTE APRN Ot R91.1 SOLITARY PULMONARY NODULE 07/14/2019 KETAN DUARTE APRN Ot Z72.0 TOBACCO USE 07/14/2019 LULÚ MCKEON DO Ot F41. 9 ANXIETY DISORDER, UNSPECIFIED 07/14/2019 LULÚ MCKEON DO Ot J43. 8 OTHER EMPHYSEMA 07/14/2019 LULÚ MCKEON DO Ot R06. 02 SHORTNESS OF BREATH 07/14/2019 DAPHNE YUSUF B2B MANAGED SERVICE SALES EXEC Ot I70.0 ATHEROSCLEROSIS OF AORTA 07/14/2019 DAPHNE YUSUF B2B MANAGED SERVICE SALES EXEC Ot I70.203 UNSP ATHSCL [place] ARTERIES OF EXTREMITI 07/14/2019 DAPHNE YUSUF B2B MANAGED SERVICE SALES EXEC Ot 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 PERFORATION OR AB 07/14/2019 ADELE ANN Ot R13.1 2 DYSPHAGIA, OROPHARYNGEAL PHASE 07/14/2019 JESSICA ALFORD FACC, ALI FACP CCDS Ot E11.9 TYPE 2 DIABETES MELLITUS WITHOUT COMPLIC 07/14/2019 JESSICA ALFORD FACC, ALI FACP CCDS Ot E66.9 OBESITY, UNSPECIFIED 07/14/2019 JESSICA ALFORD FACC, ALI FACP CCDS Ot I69.322 DYSARTHRIA FOLLOWING CEREBRAL INFARCTION 07/14/2019 JESSICA ALFORD FACC, ALI FACP CCDS Ot I69.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 FOLLOWING CEREBRAL INFRC AFF RI 07/14/2019 JESSICA ALFORD FACC, ALI FACP CCDS Ot I73.9 PERIPHERAL VASCULAR DISEASE, UNSPECIFIED 07/14/2019 JESSICA ALFORD FACC, ALI FACP CCDS Ot J44.9 CHRONIC OBSTRUCTIVE PULMONARY DISEASE, U 07/14/2019 JESSICA ALFORD FACC, ALI FACP CCDS Ot R00.2 PALPITATIONS 07/14/2019 JESSICA ALFORD FACC, ALI FACP CCDS Ot Z68.31 BODY MASS INDEX (BMI) 31.0-31.9, ADULT 07/14/2019 JESSICA ALFORD FACC, ALI FACP CCDS Ot Z79.01 ASSISTED (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 OF ANTICOAGULANT 07/14/2019 JESSICA ALFORD FACC, [facility] CCD[facility] Ot Z79.82 ASSISTED (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 07/14/2019 JESSICA ALFORD FACC, AUGIE FACP CCDS Ot Z79.899 OTHER ASSISTED (CURRENT) DRUG THERAPY 07/14/2019 JESSICA ALFORD FACC, [facility] CCDS Ot Z86.718 PERSONAL HISTORY OF OTHER VENOUS THROMBO 07/14/2019 JESSICA ALFORD FACC, [facility] CCDS Ot Z87.891 PERSONAL HISTORY OF NICOTINE DEPENDENCE 07/14/2019 JESSICA ALFORD FACC, 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 07/14/2019 MARJORIE EDUARDO [employer] EXEC Ot I48.3 TYPICAL ATRIAL FLUTTER 07/14/2019 DAPHNE YUSUF [employer] EXEC Ot R59.0 LOCALIZED ENLARGED LYMPH NODES 07/14/2019 DAPHNE YUSUF [employer] EXEC Ot Z85.819 PRSNL HX OF MALIG NEOPLM OF [facility] SITE LI 07/14/2019 DAPHNE YUSUF [employer] EXEC Ot Z98.890 OTHER SPECIFIED POSTPROCEDURAL STATES 07/14/2019 DAPHNE YUSUF [employer] EXEC Ot R59.0 LOCALIZED ENLARGED LYMPH NODES 07/14/2019 PILI YUSUFA [employer] EXEC Ot Z98.890 OTHER SPECIFIED POSTPROCEDURAL STATES 07/14/2019 KETAN DUARTE APRN Ot G47.36 SLEEP RELATED HYPOVENTILATION IN CONDITI 07/14/2019 KETAN DUARTE GARAGEMAN Ot I25.10 ATHSCL HEART DISEASE OF [place] CORONARY 07/14/2019 KETAN DUARTE GARAGEMAN Ot J30.9 ALLERGIC RHINITIS, UNSPECIFIED 07/14/2019 KETAN DUARTE APRN Ot J44.9 CHRONIC OBSTRUCTIVE PULMONARY DISEASE, U 07/14/2019 KETAN DUARTE APRN Ot K80.20 CALCULUS OF GALLBLADDER W/O CHOLECYSTITI 07/14/2019 KETAN DUARTE GARAGEMAN Ot R91.8 OTHER NONSPECIFIC ABNORMAL FINDING OF [place] 07/14/2019 KETAN DUARTE GARAGEMAN Ot Z72.0 TOBACCO USE 07/14/2019 MARJORIE EDUARDO [employer] EXEC Ot I48.92 UNSPECIFIED ATRIAL FLUTTER 07/14/2019 JACINDA ALFORD, MARCUS Ot 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, ORAL 07/14/2019 JACINDA ALFORD, MARCUS Ot 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, ORAL 07/14/2019 JACINDA ALFORD, MARCUS Ot 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, ORAL 07/14/2019 DAPHNE YUSUF [employer] EXEC Ot I73.9 PERIPHERAL VASCULAR DISEASE, UNSPECIFIED 07/14/2019 NAM GASPAR [employer] EXEC Ot R06.02 SHORTNESS OF BREATH 07/14/2019 NAM GASPAR [employer] EXEC Ot R60.9 EDEMA, UNSPECIFIED 07/14/2019 JESSICA ALFORD FAC, AUGIE ELI CCDS Ot R06.02 SHORTNESS OF BREATH 07/14/2019 MARYCHUY DUARTEINE E GARAGEMAN Ot G47.9 SLEEP DISORDER, UNSPECIFIED 07/14/2019 GERALD KETAN E GARAGEMAN Ot J44.9 CHRONIC OBSTRUCTIVE PULMONARY DISEASE, U 07/14/2019 GERALD, KETAN E GARAGEMAN Ot R05 COUGH 07/14/2019 GERALD KETAN E GARAGEMAN Ot R06.2 WHEEZING 07/14/2019 GERALD KETAN E GARAGEMAN Ot F17.201 NICOTINE DEPENDENCE, UNSPECIFIED, IN REM 07/14/2019 MARYCHUY DUARTEINE Anmol GARAGEMAN Ot J44.9 CHRONIC OBSTRUCTIVE PULMONARY DISEASE, U 07/14/2019 MARYCHUY DUARTEINE E GARAGEMAN Ot R05 COUGH 07/14/2019 GERALD KETAN E GARAGEMAN Ot R06.2 WHEEZING 07/14/2019 LULÚ MCKEON DO Ot F41. 9 ANXIETY DISORDER, UNSPECIFIED 07/14/2019 LULÚ MCKEON DO Ot J44. 9 CHRONIC OBSTRUCTIVE PULMONARY DISEASE, U 07/14/2019 LULÚ MCKEON DO Ot R06. 02 SHORTNESS OF BREATH 07/14/2019 LULÚ MCKEON DO Ot Z72. 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 07/14/2019 JESSICA ALFORD FAC, ALI FACP CCDS Ot M06.9 RHEUMATOID ARTHRITIS, UNSPECIFIED 07/14/2019 JESSICA ALFORD [facility], ALI FACP CCDS Ot M79.89 OTHER SPECIFIED SOFT TISSUE DISORDERS 07/14/2019 JESSICA ALFORD [facility], ALI FACP CCDS Ot R07.89 OTHER CHEST PAIN 07/14/2019 JESSICA ALFORD [facility], ALI FACP CCDS Ot D63.8 ANEMIA IN OTHER CHRONIC DISEASES CLASSIF 07/14/2019 JESSICA ALFORD [facility], ALI FACP CCDS Ot I47.1 SUPRAVENTRICULAR TACHYCARDIA 07/14/2019 JESSICA ALFORD [facility], ALI FACP CCDS Ot 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 07/14/2019 JESSICA ALFORD [facility], ALI FACP CCDS Ot M06.9 RHEUMATOID ARTHRITIS, UNSPECIFIED 07/14/2019 JESSICA ALFORD [facility], ALI FACP CCDS Ot M79.89 OTHER SPECIFIED SOFT TISSUE DISORDERS 07/14/2019 JESSICA [facility]FORD [facility] CENTER, ALI FACP CCDS Ot R07.89 OTHER CHEST PAIN 07/14/2019 MARLENA HURTADO Ot E11.59 TYPE 2 DIABETES MELLITUS WITH OTH CIRCUL 07/14/2019 MARLENA HURTADO Ot F17.210 NICOTINE DEPENDENCE, CIGARETTES, UNCOMPL 07/14/2019 MARLENA HURTADO Ot F41.9 ANXIETY DISORDER, UNSPECIFIED 07/14/2019 MARLENA HURTADO Ot I47.1 SUPRAVENTRICULAR TACHYCARDIA 07/14/2019 MARLENA HURTADO Ot I65.23 OCCLUSION AND STENOSIS OF BILATERAL [place] 07/14/2019 MARLENA HURTADO Ot 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 07/14/2019 GENESIS, MARLENA Castro Ot I80.209 PHLBTS AND THOMBOPHLB OF UNSP DEEP VESSE 07/14/2019 MARLENA HURTADO Gloria Ot J44.9 CHRONIC OBSTRUCTIVE PULMONARY DISEASE, U 07/14/2019 MARLENA HURTADO Gloria Ot 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 9 ANXIETY DISORDER, UNSPECIFIED 07/14/2019 LULÚ MCKEON DO Ot J43. 8 OTHER EMPHYSEMA 07/14/2019 LULÚ MCKEON DO Ot R06. 02 SHORTNESS OF BREATH 07/14/2019 DAPHNE YUSUF [employer] SAL[employer] EXEC Ot I70.0 ATHEROSCLEROSIS OF [place] 07/14/2019 DAPHNE YUSUF [employer] MANA[employer]ED SERV[employer] SALES EXEC Ot I70.203 UNSP ATHSCL [place] ARTERIES OF EXTREMITI 07/14/2019 DAPHNE YUSUF [employer] MANA[employer]ED SERV[employer] SALES EXEC Ot 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 PERFORATION OR AB 07/14/2019 ADELE ANN Ot R13.1 2 DYSPHAGIA, OROPHARYNGEAL PHASE 07/14/2019 JESSICA ALFORD FACC, ALI FACP CCDS Ot E11.9 TYPE 2 DIABETES MELLITUS WITHOUT COMPLIC 07/14/2019 JESSICA ALFORD FACC, ALI FACP CCDS Ot E66.9 OBESITY, UNSPECIFIED 07/14/2019 JESSICA ALFORD FACC, ALI FACP CCDS Ot I69.322 DYSARTHRIA FOLLOWING CEREBRAL INFARCTION 07/14/2019 JESSICA ALFORD FACC, ALI FACP CCDS Ot I69.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 FOLLOWING CEREBRAL INFRC AFF RI 07/14/2019 JESSICA ALFORD FACC, ALI FACP CCDS Ot I73.9 PERIPHERAL VASCULAR DISEASE, UNSPECIFIED 07/14/2019 JESSICA ALFORD FACC, ALI FACP CCDS Ot J44.9 CHRONIC OBSTRUCTIVE PULMONARY DISEASE, U 07/14/2019 JESSICA ALFORD FACC, ALI FACP CCDS Ot R00.2 PALPITATIONS 07/14/2019 JESSICA ALFORD FACC, ALI FACP CCDS Ot Z68.31 BODY MASS INDEX (BMI) 31.0-31.9, ADULT 07/14/2019 JESSICA ALFORD FACC, ALI FACP CCDS Ot Z79.01 SOCIAL SERVICES COUNSELOR (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 OF ANTICOAGULANT 07/14/2019 JESSICA ALFORD FACC, ALI FACP CCDS Ot Z79.82 ASSISTED (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 07/14/2019 JESSICA ALFORD [facility], ALI FACP CCDS Ot 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 07/14/2019 JESSICA ALFORD FACC, ALI FACP CCDS Ot Z86.718 PERSONAL HISTORY OF OTHER VENOUS THROMBO 07/14/2019 JESSICA ALFORD FACC, ALI FACP CCDS Ot Z87.891 PERSONAL HISTORY OF NICOTINE DEPENDENCE 07/14/2019 JESSICA ALFORD [facility], ALI FACP CCDS Ot Z95.820 PERIPHERAL VASCULAR ANGIOPLASTY STATUS W 07/14/2019 MARJORIE EDUARDO B2B MANAGED SERVICE SALES EXEC Ot I08.1 RHEUMATIC DISORDERS OF BOTH MITRAL AND T 07/14/2019 MARJORIE EDUARDO [employer]2B MANAGED SERVICE SALES EXEC Ot I48.3 TYPICAL ATRIAL FLUTTER 07/14/2019 DAPHNE YUSUF B2B MANAGED SERVICE SALES EXEC Ot R59.0 LOCALIZED ENLARGED LYMPH NODES 07/14/2019 DAPHNE YUSUF [employer]2B MANAGED SERVICE SALES EXEC Ot Z85.819 PRSNL HX OF MALIG NEOPLM OF [facility] SITE LI 07/14/2019 DAPHNE YUSUF B2B MANAGED SERVICE SALES EXEC Ot Z98.890 OTHER SPECIFIED POSTPROCEDURAL STATES 07/14/2019 DAPHNE YUSUF B2B MANAGED SERVICE SALES EXEC Ot R59.0 LOCALIZED ENLARGED LYMPH NODES 07/14/2019 DAPHNE YUSUF B2B MANAGED SERVICE SALES EXEC Ot Z98.890 OTHER SPECIFIED POSTPROCEDURAL STATES 07/14/2019 KETAN DUARTE APRN Ot G47.36 SLEEP RELATED HYPOVENTILATION IN CONDITI 07/14/2019 KETAN DUARTE APRN Ot I25.10 ATHSCL HEART DISEASE OF [place] CORONARY 07/14/2019 KETAN DUARTE APRN Ot J30.9 ALLERGIC RHINITIS, UNSPECIFIED 07/14/2019 GERALD, KETAN E GARAGEMAN Ot J44.9 CHRONIC OBSTRUCTIVE PULMONARY DISEASE, U 07/14/2019 MARYCHUY DUARTEINE Anmol GARAGEMAN Ot K80.20 CALCULUS OF GALLBLADDER W/O CHOLECYSTITI 07/14/2019 MARYCHUY DUARTEINE E GARAGEMAN Ot R91.8 OTHER NONSPECIFIC ABNORMAL FINDING OF [place] 07/14/2019 MARYCHUY DUARTEINE E GARAGEMAN Ot Z72.0 TOBACCO USE 07/14/2019 MARJORIE EDUARDO B2B MANAGED SERVICE SALES EXEC Ot I48.92 UNSPECIFIED ATRIAL FLUTTER 07/14/2019 JACINDA ALFORD, MARCUS Ot 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, ORAL 07/14/2019 DAPHNE YUSUF B2B MANAGED SERVICE SALES EXEC Ot I73.9 PERIPHERAL VASCULAR DISEASE, UNSPECIFIED 07/14/2019 NAM GASPAR B2B MANAGED SERVICE SALES EXEC Ot R06.02 SHORTNESS OF BREATH 07/14/2019 NAM GASPAR B2B MANAGED SERVICE SALES EXEC Ot R60.9 EDEMA, UNSPECIFIED 07/14/2019 JESSICA ALFORD FAC, AUGIE ELI CCDS Ot R06.02 SHORTNESS OF BREATH 07/14/2019 KETAN DUARTE GARAGEMAN Ot G47.9 SLEEP DISORDER, UNSPECIFIED 07/14/2019 MARYCHUY DUARTEINE E GARAGEMAN Ot J44.9 CHRONIC OBSTRUCTIVE PULMONARY DISEASE, U 07/14/2019 MARYCHUY DUARTEINE E GARAGEMAN Ot R05 COUGH 07/14/2019 MARYCHUY DUARTEINE E GARAGEMAN Ot R06.2 WHEEZING 07/14/2019 GERALD KETAN E GARAGEMAN Ot F17.201 NICOTINE DEPENDENCE, UNSPECIFIED, IN REM 07/14/2019 KETAN DUARTE GARAGEMAN Ot J44.9 CHRONIC OBSTRUCTIVE PULMONARY DISEASE, U 07/14/2019 MARYCHUY DUARTEINE E GARAGEMAN Ot R05 COUGH 07/14/2019 EGRALD KETAN E GARAGEMAN Ot R06.2 WHEEZING 07/14/2019 LULÚ MCKEON DO Ot F41. 9 ANXIETY DISORDER, UNSPECIFIED 07/14/2019 LULÚ MCKEON DO Ot J44. 9 CHRONIC OBSTRUCTIVE PULMONARY DISEASE, U 07/14/2019 LULÚ MCKEON DO Ot R06. 02 SHORTNESS OF BREATH 07/14/2019 LULÚ MCKEON DO Ot Z72. 0 TOBACCO USE 07/14/2019 DAPHNE YUSUFP Ot D50.9 IRON DEFICIENCY ANEMIA, UNSPECIFIED 07/14/2019 JANEY ALFORD, GRETEL Brannon Ot D50.9 IRON DEFICIENCY ANEMIA, UNSPECIFIED 07/14/2019 JANEY ALFORD, GRETEL Brannon Ot D50.9 IRON DEFICIENCY ANEMIA, UNSPECIFIED 07/14/2019 JANEY ALFORD, GRETEL Brannon Ot Z01.818 ENCOUNTER FOR OTHER PREPROCEDURAL EXAMIN 07/14/2019 JESSICA ALFORD FACC, ALI FACP CCDS Ot D63.8 ANEMIA IN OTHER CHRONIC DISEASES CLASSIF 07/14/2019 JESSICA ALFORD FACC, ALI FACP CCDS Ot I47.1 SUPRAVENTRICULAR TACHYCARDIA 07/14/2019 JESSICA ALFORD FACC, ALI FACP CCDS Ot 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 07/14/2019 JESSICA ALFORD FACC, ALI FACP CCDS Ot M06.9 RHEUMATOID ARTHRITIS, UNSPECIFIED 07/14/2019 JESSICA ALFORD FACC, ALI FACP CCDS Ot M79.89 OTHER SPECIFIED SOFT TISSUE DISORDERS 07/14/2019 JESSICA ALFORD FACC, ALI FACP CCDS Ot R07.89 OTHER CHEST PAIN 07/14/2019 JESSICA ALFORD FACC, ALI FACP CCDS Ot D63.8 ANEMIA IN OTHER CHRONIC DISEASES CLASSIF 07/14/2019 JESSICA ALFORD FACC, ALI FACP CCDS Ot I47.1 SUPRAVENTRICULAR TACHYCARDIA 07/14/2019 JESSICA ALFORD FACC, ALI FACP CCDS Ot 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 07/14/2019 JESSICA ALFORD FACC, ALI FACP CCDS Ot M06.9 RHEUMATOID ARTHRITIS, UNSPECIFIED 07/14/2019 JESSICA ALFORD FACC, ALI FACP CCDS Ot M79.89 OTHER SPECIFIED SOFT TISSUE DISORDERS 07/14/2019 JESSICA ALFODR FACC, ALI FACP CCDS Ot R07.89 OTHER CHEST PAIN 07/14/2019 MARLENA HURTADO Ot E11.59 TYPE 2 DIABETES MELLITUS WITH OTH CIRCUL 07/14/2019 MARLENA HURTADO Ot F17.210 NICOTINE DEPENDENCE, CIGARETTES, UNCOMPL 07/14/2019 MARLENA HURTADO Ot F41.9 ANXIETY DISORDER, UNSPECIFIED 07/14/2019 MARLENA HURTADO Ot I47.1 SUPRAVENTRICULAR TACHYCARDIA 07/14/2019 MARLENA HURTADO Ot I65.23 OCCLUSION AND STENOSIS OF BILATERAL [place] 07/14/2019 MARLENA HURTADO Gloria Ot 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 07/14/2019 GENESIS MARLENA Gloria Ot I80.209 PHLBTS AND THOMBOPHLB OF UNSP DEEP VESSE 07/14/2019 MARLENA HURTADO Gloria Ot J44.9 CHRONIC OBSTRUCTIVE PULMONARY DISEASE, U 07/14/2019 MARLENA HURTADO Gloria Ot 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 07/14/2019 JANEY ALFORD, GRETEL Brannon Ot A04.7 ENTEROCOLITIS DUE TO CLOSTRIDIUM DIFFICI 07/14/2019 KETAN DUARTE APRN Ot R09.02 HYPOXEMIA 07/14/2019 KETAN DUARTE APRN Ot R91.1 SOLITARY PULMONARY NODULE 07/14/2019 KETAN DUARTE APRN Ot Z72.0 TOBACCO USE 07/14/2019 LULÚ MCKEON DO Ot F41. 9 ANXIETY DISORDER, UNSPECIFIED 07/14/2019 LULÚ MCKEON DO Ot J43. 8 OTHER EMPHYSEMA 07/14/2019 LULÚ MCKEON DO Ot R06. 02 SHORTNESS OF BREATH 07/14/2019 DAPHNE YUSUF Ot I70.0 ATHEROSCLEROSIS OF [place] 07/14/2019 DAPHNE YUSUF Ot I70.203 UNSP ATHSCL [place] ARTERIES OF EXTREMITI 07/14/2019 DAPHNE YUSUF Ot 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 PERFORATION OR AB 07/14/2019 ADELE ANN Ot R13.1 2 DYSPHAGIA, OROPHARYNGEAL PHASE 07/14/2019 JESSICA ALFORD FACC, ALI FACP CCDS Ot E11.9 TYPE 2 DIABETES MELLITUS WITHOUT COMPLIC 07/14/2019 JESSICA ALFORD FACC, ALI FACP CCDS Ot E66.9 OBESITY, UNSPECIFIED 07/14/2019 JESSICA ALFORD FACC, ALI FACP CCDS Ot I69.322 DYSARTHRIA FOLLOWING CEREBRAL INFARCTION 07/14/2019 JESSICA ALFORD FACC, ALI FACP CCDS Ot I69.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 FOLLOWING CEREBRAL INFRC AFF RI 07/14/2019 JESSICA ALFORD FACC, ALI FACP CCDS Ot I73.9 PERIPHERAL VASCULAR DISEASE, UNSPECIFIED 07/14/2019 JESSICA ALFORD FACC, AUGIE FACP CCDS Ot J44.9 CHRONIC OBSTRUCTIVE PULMONARY DISEASE, U 07/14/2019 JESSICA ALFORD FACC, ALI FACP CCDS Ot R00.2 PALPITATIONS 07/14/2019 JESSICA ALFORD FACC, ALI FACP CCDS Ot Z68.31 BODY MASS INDEX (BMI) 31.0-31.9, ADULT 07/14/2019 JESSICA ALFORD FACC, ALI FACP CCDS Ot Z79.01 SOCIAL SERVICES COUNSELOR (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 OF ANTICOAGULANT 07/14/2019 JESSICA ALFORD FACC, ALI FACP CCDS Ot Z79.82 ASSISTED (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 07/14/2019 JESSICA ALFORD FACC, AUGIE FACP CCDS Ot Z79.899 OTHER ASSISTED (CURRENT) DRUG THERAPY 07/14/2019 JESSICA ALFORD FACC, ALI FACP CCDS Ot Z86.718 PERSONAL HISTORY OF OTHER VENOUS THROMBO 07/14/2019 JESSICA ALFORD FACC, AUGIE FACP CCDS Ot Z87.891 PERSONAL HISTORY OF NICOTINE DEPENDENCE 07/14/2019 JESSICA ALFORD FACC, ALI FACP CCDS Ot Z95.820 PERIPHERAL VASCULAR ANGIOPLASTY STATUS W 07/14/2019 MARJORIE EDUARDO B2B MANAGED SERVICE SALES EXEC Ot I08.1 RHEUMATIC DISORDERS OF BOTH MITRAL AND T 07/14/2019 MARJORIE EDUARDO B2B MANAGED SERVICE SALES EXEC Ot I48.3 TYPICAL ATRIAL FLUTTER 07/14/2019 DAPHNE YUSUF B2B MANAGED SERVICE SALES EXEC Ot R59.0 LOCALIZED ENLARGED LYMPH NODES 07/14/2019 DAPHNE YUSUF B2B MANAGED SERVICE SALES EXEC Ot Z85.819 PRSNL HX OF MALIG NEOPLM OF [facility] SITE LI 07/14/2019 DAPHNE YUSUF B2B MANAGED SERVICE SALES EXEC Ot Z98.890 OTHER SPECIFIED POSTPROCEDURAL STATES 07/14/2019 DAPHNE YUSUF B2B MANAGED SERVICE SALES EXEC Ot R59.0 LOCALIZED ENLARGED LYMPH NODES 07/14/2019 DAPHNE YUSUF B2B MANAGED SERVICE SALES EXEC Ot Z98.890 OTHER SPECIFIED POSTPROCEDURAL STATES 07/14/2019 KETAN DUARTE APRN Ot G47.36 SLEEP RELATED HYPOVENTILATION IN CONDITI 07/14/2019 KETAN DUARTE APRN Ot I25.10 ATHSCL HEART DISEASE OF [place] CORONARY 07/14/2019 GERALD, KETAN E GARAGEMAN Ot J30.9 ALLERGIC RHINITIS, UNSPECIFIED 07/14/2019 GERALD, KETAN E GARAGEMAN Ot J44.9 CHRONIC OBSTRUCTIVE PULMONARY DISEASE, U 07/14/2019 MARYCHUY DUARTEINE E GARAGEMAN Ot K80.20 CALCULUS OF GALLBLADDER W/O CHOLECYSTITI 07/14/2019 MARYCHUY DUARTEINE E GARAGEMAN Ot R91.8 OTHER NONSPECIFIC ABNORMAL FINDING OF [place] 07/14/2019 MARYCHUY DUARTEINE E GARAGEMAN Ot Z72.0 TOBACCO USE 07/14/2019 MARJORIE EDUARDO B2B MANAGED SERVICE SALES EXEC Ot I48.92 UNSPECIFIED ATRIAL FLUTTER 07/14/2019 JACINDA ALFORD, MARCUS Ot 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, ORAL 07/19/2019 DAPHNE YUSUF B2B MANAGED SERVICE SALES EXEC Ot I73.9 PERIPHERAL VASCULAR DISEASE, UNSPECIFIED 07/19/2019 NAM GASPAR B2B MANAGED SERVICE SALES EXEC Ot R06.02 SHORTNESS OF BREATH 07/19/2019 NAM GASPAR B2B MANAGED SERVICE SALES EXEC Ot R60.9 EDEMA, UNSPECIFIED 07/19/2019 JESSICA ALFORD FAC, AUGIE GUALLPAP CCDS Ot R06.02 SHORTNESS OF BREATH 07/19/2019 MARYCHUY DUARTEINE E GARAGEMAN Ot G47.9 SLEEP DISORDER, UNSPECIFIED 07/19/2019 MARYCHUY DUARTEINE E GARAGEMAN Ot J44.9 CHRONIC OBSTRUCTIVE PULMONARY DISEASE, U 07/19/2019 GERALD, KETAN E GARAGEMAN Ot R05 COUGH 07/19/2019 GERALD, KETAN E GARAGEMAN Ot R06.2 WHEEZING 07/19/2019 GERALD, KETAN E GARAGEMAN Ot F17.201 NICOTINE DEPENDENCE, UNSPECIFIED, IN REM 07/19/2019 MARYCHUY DUARTEINE E GARAGEMAN Ot J44.9 CHRONIC OBSTRUCTIVE PULMONARY DISEASE, U 07/19/2019 GERALD KETAN E GARAGEMAN Ot R05 COUGH 07/19/2019 GERALD KETAN E GARAGEMAN Ot R06.2 WHEEZING 07/19/2019 LULÚ MCKEON DO Ot F41. 9 ANXIETY DISORDER, UNSPECIFIED 07/19/2019 LULÚ MCKEON DO Ot J44. 9 CHRONIC OBSTRUCTIVE PULMONARY DISEASE, U 07/19/2019 LULÚ MCKEON DO Ot R06. 02 SHORTNESS OF BREATH 07/19/2019 MIKE DO, LULÚ M Ot Z72. 0 TOBACCO USE 07/19/2019 DAPHNE YUSUF Ot D50.9 IRON DEFICIENCY ANEMIA, UNSPECIFIED 07/19/2019 JAENY ALFORD, GRETEL Brannon Ot D50.9 IRON DEFICIENCY ANEMIA, UNSPECIFIED 07/19/2019 JANEY ALFORD, GRETEL Brannon Ot D50.9 IRON DEFICIENCY ANEMIA, UNSPECIFIED 07/19/2019 JANEY ALFORD, GRETEL Brannon Ot Z01.818 ENCOUNTER FOR OTHER PREPROCEDURAL EXAMIN 07/19/2019 JESSICA ALFORD FACC, ALI FACP CCDS Ot D63.8 ANEMIA IN OTHER CHRONIC DISEASES CLASSIF 07/19/2019 JESSICA ALFORD FACC, ALI FACP CCDS Ot I47.1 SUPRAVENTRICULAR TACHYCARDIA 07/19/2019 JESSICA ALFORD FACC, ALI FACP CCDS Ot 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 07/19/2019 JESSICA ALFORD FACC, ALI FACP CCDS Ot M06.9 RHEUMATOID ARTHRITIS, UNSPECIFIED 07/19/2019 JESSICA ALFORD FACC, ALI FACP CCDS Ot M79.89 OTHER SPECIFIED SOFT TISSUE DISORDERS 07/19/2019 JESSICA ALFORD FACC, ALI FACP CCDS Ot R07.89 OTHER CHEST PAIN 07/19/2019 JESSICA ALFORD FACC, ALI FACP CCDS Ot D63.8 ANEMIA IN OTHER CHRONIC DISEASES CLASSIF 07/19/2019 JESSICA ALFORD FACC, ALI FACP CCDS Ot I47.1 SUPRAVENTRICULAR TACHYCARDIA 07/19/2019 JESSICA ALFORD FACC, ALI FACP CCDS Ot 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 07/19/2019 JESSICA ALFORD FACC, ALI FACP CCDS Ot M06.9 RHEUMATOID ARTHRITIS, UNSPECIFIED 07/19/2019 JESSICA ALFORD FACC, ALI FACP CCDS Ot M79.89 OTHER SPECIFIED SOFT TISSUE DISORDERS 07/19/2019 JESSICA ALFORD FACC, ALI FACP CCDS Ot R07.89 OTHER CHEST PAIN 07/19/2019 MARLENA HURTADO Ot E11.59 TYPE 2 DIABETES MELLITUS WITH OTH CIRCUL 07/19/2019 MARLENA HURTADO Ot F17.210 NICOTINE DEPENDENCE, CIGARETTES, UNCOMPL 07/19/2019 MARLENA HURTADO Ot F41.9 ANXIETY DISORDER, UNSPECIFIED 07/19/2019 MARLENA HURTADO Ot I47.1 SUPRAVENTRICULAR TACHYCARDIA 07/19/2019 MARLENA HURTADO Gloria Ot I65.23 OCCLUSION AND STENOSIS OF BILATERAL [place] 07/19/2019 GENESISMARLENA Ot 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 07/19/2019 GENESISMARLENA Ot I80.209 PHLBTS AND THOMBOPHLB OF UNSP DEEP VESSE 07/19/2019 GENESISMARLENA Ot J44.9 CHRONIC OBSTRUCTIVE PULMONARY DISEASE, U 07/19/2019 GENESISMARLENA Ot Z79.899 OTHER ASSISTED (CURRENT) DRUG THERAPY 07/19/2019 JANEY ALFORD, GRETEL Brannon Ot A04.7 ENTEROCOLITIS DUE TO CLOSTRIDIUM DIFFICI 07/19/2019 KETAN DUARTE APRN Ot R09.02 HYPOXEMIA 07/19/2019 KETAN DUARTE APRN Ot R91.1 SOLITARY PULMONARY NODULE 07/19/2019 KETAN DUARTE APRN Ot Z72.0 TOBACCO USE 07/19/2019 LULÚ MCKEON DO Ot F41. 9 ANXIETY DISORDER, UNSPECIFIED 07/19/2019 LULÚ MCKEON DO Ot J43. 8 OTHER EMPHYSEMA 07/19/2019 LULÚ MCKEON DO Ot R06. 02 SHORTNESS OF BREATH 07/19/2019 DAPHNE YUSUF Ot I70.0 ATHEROSCLEROSIS OF [place] 07/19/2019 DAPHNE YUSUF Ot I70.203 UNSP ATHSCL [place] ARTERIES OF EXTREMITI 07/19/2019 DAPHNE YUSUF Ot 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 PERFORATION OR AB 07/19/2019 ADELE ANN Ot R13.1 2 DYSPHAGIA, OROPHARYNGEAL PHASE 07/19/2019 JESSICA ALFORD FACC, AUGIE FACP CCDS Ot E11.9 TYPE 2 DIABETES MELLITUS WITHOUT COMPLIC 07/19/2019 JESSICA ALFORD FACC, AUGIE FACP CCDS Ot E66.9 OBESITY, UNSPECIFIED 07/19/2019 JESSICA ALFORD FACC, AUGIE FACP CCDS Ot I69.322 DYSARTHRIA FOLLOWING CEREBRAL INFARCTION 07/19/2019 JESSICA ALFORD FACC, AUGIE FACP CCDS Ot I69.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 FOLLOWING CEREBRAL INFRC AFF RI 07/19/2019 JESSICA ALFORD FACC, ALI FACP CCDS Ot I73.9 PERIPHERAL VASCULAR DISEASE, UNSPECIFIED 07/19/2019 JESSICA ALFORD FACC, ALI FACP CCDS Ot J44.9 CHRONIC OBSTRUCTIVE PULMONARY DISEASE, U 07/19/2019 JESSICA ALFORD [facility], ALI FACP CCDS Ot R00.2 PALPITATIONS 07/19/2019 JESSICA ALFORD [facility], ALI FACP CCDS Ot Z68.31 BODY MASS INDEX (BMI) 31.0-31.9, ADULT 07/19/2019 JESSICA ALFORD [facility], ALI FACP CCDS Ot Z79.01 ASSISTED (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 OF ANTICOAGULANT 07/19/2019 JESSICA ALFORD [facility], ALI FACP CCDS Ot Z79.82 ASSISTED (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 07/19/2019 JESSICA ALFORD [facility], ALI FACP CCDS Ot Z79.899 OTHER ASSISTED (CURRENT) DRUG THERAPY 07/19/2019 JESSICA GUALLPA, ALI FACP CCDS Ot Z86.718 PERSONAL HISTORY OF OTHER VENOUS THROMBO 07/19/2019 JESSICA ALFORD [facility], ALI FACP CCDS Ot Z87.891 PERSONAL HISTORY OF NICOTINE DEPENDENCE 07/19/2019 JESSICA ALFORD [facility], ALI FACP CCDS Ot Z95.820 PERIPHERAL VASCULAR ANGIOPLASTY STATUS W 07/19/2019 MARJORIE EDUARDO B2B MANAGED SERVICE SALES EXEC Ot I08.1 RHEUMATIC DISORDERS OF BOTH MITRAL AND T 07/19/2019 MARJORIE EDUARDO B2B MANAGED SERVICE SALES EXEC Ot I48.3 TYPICAL ATRIAL FLUTTER 07/19/2019 DAPHNE YUSUF B2B MANAGED SERVICE SALES EXEC Ot R59.0 LOCALIZED ENLARGED LYMPH NODES 07/19/2019 DAPHNE YUSUF B2B MANAGED SERVICE SALES EXEC Ot Z85.819 PRSNL HX OF MALIG NEOPLM OF [facility] SITE LI 07/19/2019 DAPHNE UYSUF B2B MANAGED SERVICE SALES EXEC Ot Z98.890 OTHER SPECIFIED POSTPROCEDURAL STATES 07/19/2019 DAPHNE YUSUF B2B MANAGED SERVICE SALES EXEC Ot R59.0 LOCALIZED ENLARGED LYMPH NODES 07/19/2019 DAPHNE YUSUF B2B MANAGED SERVICE SALES EXEC Ot Z98.890 OTHER SPECIFIED POSTPROCEDURAL STATES 07/19/2019 KETAN DUARTE APRN Ot G47.36 SLEEP RELATED HYPOVENTILATION IN CONDITI 07/19/2019 GERALD, KETAN E GARAGEMAN Ot I25.10 ATHSCL HEART DISEASE OF [place] CORONARY 07/19/2019 MARYCHUY DUARTEINE E GARAGEMAN Ot J30.9 ALLERGIC RHINITIS, UNSPECIFIED 07/19/2019 MARYCHUY DUARTEINE E GARAGEMAN Ot J44.9 CHRONIC OBSTRUCTIVE PULMONARY DISEASE, U 07/19/2019 MARYCHUY DUARTEINE Anmol GARAGEMAN Ot K80.20 CALCULUS OF GALLBLADDER W/O CHOLECYSTITI 07/19/2019 MARYCHUY DUARTEINE E GARAGEMAN Ot R91.8 OTHER NONSPECIFIC ABNORMAL FINDING OF [place] 07/19/2019 MARYCHUY DUARTEINE E GARAGEMAN Ot Z72.0 TOBACCO USE 07/19/2019 MARJORIE EDUARDO B2B MANAGED SERVICE SALES EXEC Ot I48.92 UNSPECIFIED ATRIAL FLUTTER 07/19/2019 JACINDA ALFORD, MARCUS Ot 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, ORAL 07/19/2019 JACINDA ALFORD, MARCUS Ot 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, ORAL 07/19/2019 DAPHNE YUSUF B2B MANAGED SERVICE SALES EXEC Ot I73.9 PERIPHERAL VASCULAR DISEASE, UNSPECIFIED 07/19/2019 NAM GASPAR B2B MANAGED SERVICE SALES EXEC Ot R06.02 SHORTNESS OF BREATH 07/19/2019 NAM GASPAR B2B MANAGED SERVICE SALES EXEC Ot R60.9 EDEMA, UNSPECIFIED 07/19/2019 JESSICA ALFORD FAC, AUGIE ELI CCDS Ot R06.02 SHORTNESS OF BREATH 07/19/2019 KETAN DUARTE GARAGEMAN Ot G47.9 SLEEP DISORDER, UNSPECIFIED 07/19/2019 MARYCHUY DUARTEINE E GARAGEMAN Ot J44.9 CHRONIC OBSTRUCTIVE PULMONARY DISEASE, U 07/19/2019 MARYCHUY DUARTEINE E GARAGEMAN Ot R05 COUGH 07/19/2019 MARYCHUY DUARTEINE E GARAGEMAN Ot R06.2 WHEEZING 07/19/2019 GERALD, KETAN E GARAGEMAN Ot F17.201 NICOTINE DEPENDENCE, UNSPECIFIED, IN REM 07/19/2019 KETAN DUARTE GARAGEMAN Ot J44.9 CHRONIC OBSTRUCTIVE PULMONARY DISEASE, U 07/19/2019 MARYCHUY DUARTEINE E GARAGEMAN Ot R05 COUGH 07/19/2019 GERALD, KETAN E GARAGEMAN Ot R06.2 WHEEZING 07/19/2019 LULÚ MCKEON DO Ot F41. 9 ANXIETY DISORDER, UNSPECIFIED 07/19/2019 LULÚ MCKEON DO Ot J44. 9 CHRONIC OBSTRUCTIVE PULMONARY DISEASE, U 07/19/2019 LULÚ MCKEON DO Ot R06. 02 SHORTNESS OF BREATH 07/19/2019 LULÚ MCKEON DO Ot Z72. 0 TOBACCO USE 07/19/2019 DAPHNE YUSUF Ot D50.9 IRON DEFICIENCY ANEMIA, UNSPECIFIED 07/19/2019 JANEY ALFORD, GRETEL Brannon Ot D50.9 IRON DEFICIENCY ANEMIA, UNSPECIFIED 07/19/2019 JANEY ALFORD, GRETEL Brannon Ot D50.9 IRON DEFICIENCY ANEMIA, UNSPECIFIED 07/19/2019 JANEY ALFORD, GRETEL Brannon Ot Z01.818 ENCOUNTER FOR OTHER PREPROCEDURAL EXAMIN 07/19/2019 JESSICA ALFORD FACC, ALI FACP CCDS Ot D63.8 ANEMIA IN OTHER CHRONIC DISEASES CLASSIF 07/19/2019 JESSICA GUALLPAC, ALI FACP CCDS Ot I47.1 SUPRAVENTRICULAR TACHYCARDIA 07/19/2019 JESSICA ALFORD FACC, ALI FACP CCDS Ot 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 07/19/2019 JESSICA ALFORD FACC, ALI FACP CCDS Ot M06.9 RHEUMATOID ARTHRITIS, UNSPECIFIED 07/19/2019 JESSICA ALFORD FACC, ALI FACP CCDS Ot M79.89 OTHER SPECIFIED SOFT TISSUE DISORDERS 07/19/2019 JESSICA ALFORD FACC, ALI FACP CCDS Ot R07.89 OTHER CHEST PAIN 07/19/2019 JESSICA ALFORD FACC, ALI FACP CCDS Ot D63.8 ANEMIA IN OTHER CHRONIC DISEASES CLASSIF 07/19/2019 JESSICA ALFORD FACC, ALI FACP CCDS Ot I47.1 SUPRAVENTRICULAR TACHYCARDIA 07/19/2019 JESSICA ALFORD FACC, ALI FACP CCDS Ot 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 07/19/2019 JESSICA ALFORD FACC, ALI FACP CCDS Ot M06.9 RHEUMATOID ARTHRITIS, UNSPECIFIED 07/19/2019 JESSICA ALFORD FACC, ALI FACP CCDS Ot M79.89 OTHER SPECIFIED SOFT TISSUE DISORDERS 07/19/2019 JESSICA ALFORD FACC, ALI FACP CCDS Ot R07.89 OTHER CHEST PAIN 07/19/2019 MARLENA HURTADO Ot E11.59 TYPE 2 DIABETES MELLITUS WITH OTH CIRCUL 07/19/2019 MARLENA HURTADO Gloria Ot F17.210 NICOTINE DEPENDENCE, CIGARETTES, UNCOMPL 07/19/2019 MARLENA HURTADO Gloria Ot F41.9 ANXIETY DISORDER, UNSPECIFIED 07/19/2019 MARLENA HURTADO Gloria Ot I47.1 SUPRAVENTRICULAR TACHYCARDIA 07/19/2019 MARLENA HURTADO Gloria Ot I65.23 OCCLUSION AND STENOSIS OF BILATERAL [place] 07/19/2019 GENESIS NEOTRI Gloria Ot 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 9 ANXIETY DISORDER, UNSPECIFIED 07/19/2019 LULÚ MCKEON DO Ot J43. 8 OTHER EMPHYSEMA 07/19/2019 LULÚ MCKEON DO Ot R06. 02 SHORTNESS OF BREATH 07/19/2019 DAPHNE YUSUF Ot I70.0 ATHEROSCLEROSIS OF [place] 07/19/2019 DAPHNE YUSUF Ot I70.203 UNS ATHSCL [place] ARTERIES OF EXTREMITI 07/19/2019 DAPHNE YUSUF Ot 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 PERFORATION OR AB 07/19/2019 ADELE ANN Ot R13.1 2 DYSPHAGIA, OROPHARYNGEAL PHASE 07/19/2019 JESSICA ALFORD FACC, AUGIE FACP CCDS Ot E11.9 TYPE 2 DIABETES MELLITUS WITHOUT COMPLIC 07/19/2019 JESSICA ALFORD FACJude, AUGIE FACP CCDS Ot E66.9 OBESITY, UNSPECIFIED 07/19/2019 JESSICA ALFORD [facility], ALI FACP CCDS Ot I69.322 DYSARTHRIA FOLLOWING CEREBRAL INFARCTION 07/19/2019 JESSICA ALFORD [facility], ALI FACP CCDS Ot I69.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 FOLLOWING CEREBRAL INFRC AFF RI 07/19/2019 JESSICA ALFORD [facility], ALI FACP CCDS Ot I73.9 PERIPHERAL VASCULAR DISEASE, UNSPECIFIED 07/19/2019 JESSICA ALFORD [facility], ALI FACP CCDS Ot J44.9 CHRONIC OBSTRUCTIVE PULMONARY DISEASE, U 07/19/2019 JESSICA ALFORD [facility], ALI FACP CCDS Ot R00.2 PALPITATIONS 07/19/2019 JESSICA ALFORD [facility], ALI FACP CCDS Ot Z68.31 BODY MASS INDEX (BMI) 31.0-31.9, ADULT 07/19/2019 JESSICA ALFORD [facility], ALI FACP CCDS Ot Z79.01 ASSISTED (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 OF ANTICOAGULANT 07/19/2019 JESSICA ALFORD [facility], ALI FACP CCDS Ot Z79.82 ASSISTED (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 07/19/2019 JESSICA ALFORD [facility], ALI FACP CCDS Ot 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 07/19/2019 JESSICA ALFORD [facility], ALI FACP CCDS Ot Z86.718 PERSONAL HISTORY OF OTHER VENOUS THROMBO 07/19/2019 JESSICA ALFORD [facility], ALI FACP CCDS Ot Z87.891 PERSONAL HISTORY OF NICOTINE DEPENDENCE 07/19/2019 JESSICA ALFORD [facility], ALI FACP CCDS Ot Z95.820 PERIPHERAL VASCULAR ANGIOPLASTY STATUS W 07/19/2019 MARJORIE EDUARDO [employer] SERV[employer] SALES EXEC Ot I08.1 RHEUMATIC DISORDERS OF BOTH MITRAL AND T 07/19/2019 MARJORIE EDUARDO [employer] MANA[employer]ED SERV[employer] SALES EXEC Ot I48.3 TYPICAL ATRIAL FLUTTER 07/19/2019 DAPHNE YUSUF [employer] MANA[employer]ED SERVICE SALES EXEC Ot R59.0 LOCALIZED ENLARGED LYMPH NODES 07/19/2019 DAPHNE YUSUF Ot Z85.819 PRSNL HX OF MALIG NEOPLM OF [facility] SITE LI 07/19/2019 DAPHNE YUSUF [employer] MANA[employer]ED SERVICE SALES EXEC Ot Z98.890 OTHER SPECIFIED POSTPROCEDURAL STATES 07/19/2019 DAPHNE YUSUF [employer] MANA[employer]ED SERVICE SALES EXEC Ot R59.0 LOCALIZED ENLARGED LYMPH NODES 07/19/2019 DAPHNE YUSUF [employer] SALES EXEC Ot Z98.890 OTHER SPECIFIED POSTPROCEDURAL STATES 07/19/2019 KETAN DUARTE GARAGEMAN Ot G47.36 SLEEP RELATED HYPOVENTILATION IN CONDITI 07/19/2019 GERALD KETAN E GARAGEMAN Ot I25.10 ATHSCL HEART DISEASE OF [place] CORONARY 07/19/2019 MARYCHUY DUARTEINE E GARAGEMAN Ot J30.9 ALLERGIC RHINITIS, UNSPECIFIED 07/19/2019 MARYCHUY DUARTEINE E GARAGEMAN Ot J44.9 CHRONIC OBSTRUCTIVE PULMONARY DISEASE, U 07/19/2019 MARYCHUY DUARTEINE E GARAGEMAN Ot K80.20 CALCULUS OF GALLBLADDER W/O CHOLECYSTITI 07/19/2019 MARYCHUY DUARTEINE E GARAGEMAN Ot R91.8 OTHER NONSPECIFIC ABNORMAL FINDING OF [place] 07/19/2019 KETAN DUARTE E GARAGEMAN Ot Z72.0 TOBACCO USE 07/19/2019 MARJORIE EDUARDO [employer] SALES EXEC Ot I48.92 UNSPECIFIED ATRIAL FLUTTER 07/19/2019 JACINDA ALFORD, MARCUS Ot 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, ORAL 08/01/2019 DAPHNE YUSUF [employer] MA[employer]ED SERV[employer] SALES EXEC Ot I73.9 PERIPHERAL VASCULAR DISEASE, UNSPECIFIED 08/01/2019 NAM GASPAR B2B MANAGED SERVICE SALES EXEC Ot R06.02 SHORTNESS OF BREATH 08/01/2019 NAM GASPAR [employer] MANA[employer]ED SERVICE SALES EXEC Ot R60.9 EDEMA, UNSPECIFIED 08/01/2019 JESSICA ALFORD FAC, AUGIE FACP CCDS Ot R06.02 SHORTNESS OF BREATH 08/01/2019 KETAN DUARTE E GARAGEMAN Ot G47.9 SLEEP DISORDER, UNSPECIFIED 08/01/2019 MARYCHUY DUARTEINE E GARAGEMAN Ot J44.9 CHRONIC OBSTRUCTIVE PULMONARY DISEASE, U 08/01/2019 MARYCHUY DUARTEINE E GARAGEMAN Ot R05 COUGH 08/01/2019 GERALD KETAN E GARAGEMAN Ot R06.2 WHEEZING 08/01/2019 GERALD KETAN E GARAGEMAN Ot F17.201 NICOTINE DEPENDENCE, UNSPECIFIED, IN REM 08/01/2019 KETAN DUARTE E GARAGEMAN Ot J44.9 CHRONIC OBSTRUCTIVE PULMONARY DISEASE, U 08/01/2019 MARYCHUY DUARTEINE E GARAGEMAN Ot R05 COUGH 08/01/2019 KETAN DUARTE APRN Ot R06.2 WHEEZING 08/01/2019 MIKE IYER LULÚ Brannon Ot F41. 9 ANXIETY DISORDER, UNSPECIFIED 08/01/2019 MIKE DO LULÚ Brannon Ot J44. 9 CHRONIC OBSTRUCTIVE PULMONARY DISEASE, U 08/01/2019 MIKE IYER LULÚ Brannon Ot R06. 02 SHORTNESS OF BREATH 08/01/2019 MIKE IYER LULÚ Brannon Ot Z72. 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 08/01/2019 JESSICA ALFORD FACC, ALI FACP CCDS Ot M06.9 RHEUMATOID ARTHRITIS, UNSPECIFIED 08/01/2019 JESSICA ALFORD FACC, ALI FACP CCDS Ot M79.89 OTHER SPECIFIED SOFT TISSUE DISORDERS 08/01/2019 JESSICA ALFORD FACC, ALI FACP CCDS Ot R07.89 OTHER CHEST PAIN 08/01/2019 JESSICA ALFORD FACC, ALI FACP CCDS Ot D63.8 ANEMIA IN OTHER CHRONIC DISEASES CLASSIF 08/01/2019 JESSICA ALFORD FACC, ALI FACP CCDS Ot I47.1 SUPRAVENTRICULAR TACHYCARDIA 08/01/2019 JESSICA ALFORD FACC, ALI FACP CCDS Ot 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 08/01/2019 JESSICA ALFORD FACC, ALI FACP CCDS Ot M06.9 RHEUMATOID ARTHRITIS, UNSPECIFIED 08/01/2019 JESSICA ALFORD FACC, ALI FACP CCDS Ot M79.89 OTHER SPECIFIED SOFT TISSUE DISORDERS 08/01/2019 JESSICA ALFORD FACC, ALI FACP CCDS Ot R07.89 OTHER CHEST PAIN 08/01/2019 GENESIS MARLENA Castro Ot E11.59 TYPE 2 DIABETES MELLITUS WITH OTH CIRCUL 08/01/2019 GENESISMARLENA Ot F17.210 NICOTINE DEPENDENCE, CIGARETTES, UNCOMPL 08/01/2019 GENESISMARLENA Ot F41.9 ANXIETY DISORDER, UNSPECIFIED 08/01/2019 GENESIS MARLENA Castro Ot I47.1 SUPRAVENTRICULAR TACHYCARDIA 08/01/2019 GENESISMARLENA Ot I65.23 OCCLUSION AND STENOSIS OF BILATERAL HERNANDEZ 08/01/2019 GENESISMARLENA Ot 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 08/01/2019 GENESISMARLENA Ot I80.209 PHLBTS AND THOMBOPHLB OF UNSP DEEP VESSE 08/01/2019 GENESISMARLENA Ot J44.9 CHRONIC OBSTRUCTIVE PULMONARY DISEASE, U 08/01/2019 GENESISMARLENA Ot Z79.899 OTHER ASSISTED (CURRENT) DRUG THERAPY 08/01/2019 JANEY ALFORD, GRETEL Brannon Ot A04.7 ENTEROCOLITIS DUE TO CLOSTRIDIUM DIFFICI 08/01/2019 KETAN DUARTE APRN Ot R09.02 HYPOXEMIA 08/01/2019 KETAN DUARTE APRN Ot R91.1 SOLITARY PULMONARY NODULE 08/01/2019 KETAN DUARTE APRN Ot Z72.0 TOBACCO USE 08/01/2019 LULÚ MCKEON DO Ot F41. 9 ANXIETY DISORDER, UNSPECIFIED 08/01/2019 LULÚ MCKEON DO Ot J43. 8 OTHER EMPHYSEMA 08/01/2019 LULÚ MCKEON DO Ot R06. 02 SHORTNESS OF BREATH 08/01/2019 DAPHNE YUSUF Ot I70.0 ATHEROSCLEROSIS OF [place] 08/01/2019 DAPHNE YUSUF Ot I70.203 UNSP ATHSCL [place] ARTERIES OF EXTREMITI 08/01/2019 DAPHNE YUSUF B2B MANAGED SERVICE SALES EXEC Ot 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 PERFORATION OR AB 08/01/2019 ADELE ANN Ot R13.1 2 DYSPHAGIA, OROPHARYNGEAL PHASE 08/01/2019 JESSICA ALFORD FAC, ALI FACP CCDS Ot E11.9 TYPE 2 DIABETES MELLITUS WITHOUT COMPLIC 08/01/2019 JESSICA ALFORD [facility], ALI FACP CCDS Ot E66.9 OBESITY, UNSPECIFIED 08/01/2019 JESSICA ALFORD [facility], ALI FACP CCDS Ot I69.322 DYSARTHRIA FOLLOWING CEREBRAL INFARCTION 08/01/2019 JESSICA ALFORD [facility], ALI FACP CCDS Ot I69.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 FOLLOWING CEREBRAL INFRC AFF RI 08/01/2019 JESSICA ALFORD [facility], ALI FACP CCDS Ot I73.9 PERIPHERAL VASCULAR DISEASE, UNSPECIFIED 08/01/2019 JESSICA ALFORD [facility], ALI FACP CCDS Ot J44.9 CHRONIC OBSTRUCTIVE PULMONARY DISEASE, U 08/01/2019 JESSICA ALFORD [facility], ALI FACP CCDS Ot R00.2 PALPITATIONS 08/01/2019 JESSICA ALFORD [facility], ALI FACP CCDS Ot Z68.31 BODY MASS INDEX (BMI) 31.0-31.9, ADULT 08/01/2019 JESSICA ALFORD [facility], ALI FACP CCDS Ot Z79.01 SOCIAL SERVICES COUNSELOR (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 OF ANTICOAGULANT 08/01/2019 JESSICA ALFORD [facility], ALI FACP CCDS Ot Z79.82 ASSISTED (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 08/01/2019 JESSICA ALFORD [facility], ALI FACP CCDS Ot 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 08/01/2019 JESSICA ALFORD [facility], ALI FACP CCDS Ot Z86.718 PERSONAL HISTORY OF OTHER VENOUS THROMBO 08/01/2019 JESSICA ALFORD [facility], ALI FACP CCDS Ot Z87.891 PERSONAL HISTORY OF NICOTINE DEPENDENCE 08/01/2019 JESSICA ALFORD [facility], ALI FACP CCDS Ot Z95.820 PERIPHERAL VASCULAR ANGIOPLASTY STATUS W 08/01/2019 MARJORIE EDUARDO B2B MANAGED SERVICE SALES EXEC Ot I08.1 RHEUMATIC DISORDERS OF BOTH MITRAL AND T 08/01/2019 MARJORIE EDUARDO B2B MANAGED SERVICE SALES EXEC Ot I48.3 TYPICAL ATRIAL FLUTTER 08/01/2019 DAPHNE YUSUF B2B MANAGED SERVICE SALES EXEC Ot R59.0 LOCALIZED ENLARGED LYMPH NODES 08/01/2019 DAPHNE YUSUF B2B MANAGED SERVICE SALES EXEC Ot Z85.819 PRSNL [facility] S[facility] 08/01/2019 DAPHNE YUSUF B2B MANAGED SERVICE SALES EXEC Ot Z98.890 OTHER SPECIFIED POSTPROCEDURAL STATES 08/01/2019 DAPHNE YUSUF B2B MANAGED SERVICE SALES EXEC Ot R59.0 LOCALIZED ENLARGED LYMPH NODES 08/01/2019 DAPHNE YUSUF B2B MANAGED SERVICE SALES EXEC Ot Z98.890 OTHER SPECIFIED POSTPROCEDURAL STATES 08/01/2019 MARYCUHY DUARTEINE E GARAGEMAN Ot G47.36 SLEEP RELATED HYPOVENTILATION IN CONDITI 08/01/2019 GERALD KETAN E GARAGEMAN Ot I25.10 ATHSCL HEART DISEASE OF [place] CORONARY 08/01/2019 MARYCHUY DUARTEINE E GARAGEMAN Ot J30.9 ALLERGIC RHINITIS, UNSPECIFIED 08/01/2019 MARYCHUY DUARTEINE E GARAGEMAN Ot J44.9 CHRONIC OBSTRUCTIVE PULMONARY DISEASE, U 08/01/2019 MARYCHUY DUARTEINE E GARAGEMAN Ot K80.20 CALCULUS OF GALLBLADDER W/O CHOLECYSTITI 08/01/2019 GERALD KETAN E GARAGEMAN Ot R91.8 OTHER NONSPECIFIC ABNORMAL FINDING OF [place] 08/01/2019 KETAN DUARTE E GARAGEMAN Ot Z72.0 TOBACCO USE 08/01/2019 MARJORIE EDUARDO B2B MANAGED SERVICE SALES EXEC Ot I48.92 UNSPECIFIED ATRIAL FLUTTER 08/01/2019 JACINDA ALFORD, MARCUS Ot 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, ORAL 08/01/2019 DAPHNE YUSUF B2B MANAGED SERVICE SALES EXEC Ot I73.9 PERIPHERAL VASCULAR DISEASE, UNSPECIFIED 08/01/2019 NAM GASPAR B2B MANAGED SERVICE SALES EXEC Ot R06.02 SHORTNESS OF BREATH 08/01/2019 NAM GASPAR B2B MANAGED SERVICE SALES EXEC Ot R60.9 EDEMA, UNSPECIFIED 08/01/2019 JESSICA ALFORD FAC, AUGIE FACP CCDS Ot R06.02 SHORTNESS OF BREATH 08/01/2019 MARYCHYU DUARTEINE E GARAGEMAN Ot G47.9 SLEEP DISORDER, UNSPECIFIED 08/01/2019 MARYCHUY DUARTEINE E GARAGEMAN Ot J44.9 CHRONIC OBSTRUCTIVE PULMONARY DISEASE, U 08/01/2019 MARYCHUY DUARTEINE E GARAGEMAN Ot R05 COUGH 08/01/2019 GERALD KETAN E GARAGEMAN Ot R06.2 WHEEZING 08/01/2019 GERALD KETAN E GARAGEMAN Ot F17.201 NICOTINE DEPENDENCE, UNSPECIFIED, IN REM 08/01/2019 MARYCHUY DUARTEINE E GARAGEMAN Ot J44.9 CHRONIC OBSTRUCTIVE PULMONARY DISEASE, U 08/01/2019 KETAN DUARTE APRN Ot R05 COUGH 08/01/2019 KETAN DUARTE APRN Ot R06.2 WHEEZING 08/01/2019 MIKE IYER LULÚ Brannon Ot F41. 9 ANXIETY DISORDER, UNSPECIFIED 08/01/2019 MIKE IYER LULÚ Brannon Ot J44. 9 CHRONIC OBSTRUCTIVE PULMONARY DISEASE, U 08/01/2019 MIKE DO LULÚ Brannon Ot R06. 02 SHORTNESS OF BREATH 08/01/2019 MIKE IYER LULÚ Brannon Ot Z72. 0 TOBACCO USE 08/01/2019 DAPHNE YUSUF Ot D50.9 IRON DEFICIENCY ANEMIA, UNSPECIFIED 08/01/2019 JANEY ALFORD, GRETEL Brannon Ot D50.9 IRON DEFICIENCY ANEMIA, UNSPECIFIED 08/01/2019 JANEY ALFORD, GRETEL Brannon Ot D50.9 IRON DEFICIENCY ANEMIA, UNSPECIFIED 08/01/2019 JANEY ALFORD, GRETEL Brannon Ot Z01.818 ENCOUNTER FOR OTHER PREPROCEDURAL EXAMIN 08/01/2019 JESSCIA ALFORD FACC, ALI FACP CCDS Ot D63.8 ANEMIA IN OTHER CHRONIC DISEASES CLASSIF 08/01/2019 JESSICA ALFORD FACC, ALI FACP CCDS Ot I47.1 SUPRAVENTRICULAR TACHYCARDIA 08/01/2019 JESSICA ALFORD FACC, ALI FACP CCDS Ot 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 08/01/2019 JESSICA ALFORD FACC, ALI FACP CCDS Ot M06.9 RHEUMATOID ARTHRITIS, UNSPECIFIED 08/01/2019 JESSICA ALFORD FACC, ALI FACP CCDS Ot M79.89 OTHER SPECIFIED SOFT TISSUE DISORDERS 08/01/2019 JESSICA ALFORD FACC, ALI FACP CCDS Ot R07.89 OTHER CHEST PAIN 08/01/2019 JESSICA ALFORD FACC, ALI FACP CCDS Ot D63.8 ANEMIA IN OTHER CHRONIC DISEASES CLASSIF 08/01/2019 JESSICA ALFORD FACC, ALI FACP CCDS Ot I47.1 SUPRAVENTRICULAR TACHYCARDIA 08/01/2019 JESSICA ALFORD FACC, ALI FACP CCDS Ot 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 08/01/2019 JESSICA ALFORD FACC, ALI FACP CCDS Ot M06.9 RHEUMATOID ARTHRITIS, UNSPECIFIED 08/01/2019 JESSICA ALFORD FACC, ALI FACP CCDS Ot M79.89 OTHER SPECIFIED SOFT TISSUE DISORDERS 08/01/2019 JESSICA ALFORD FAC, ALI [facility] CCDS Ot R07.89 OTHER CHEST PAIN 08/01/2019 GENESISMARLENA Ot E11.59 TYPE 2 DIABETES MELLITUS WITH OTH CIRCUL 08/01/2019 GENESISMARLENA Ot F17.210 NICOTINE DEPENDENCE, CIGARETTES, UNCOMPL 08/01/2019 GENESISMARLENA Ot F41.9 ANXIETY DISORDER, UNSPECIFIED 08/01/2019 GENESISMARLENA Ot I47.1 SUPRAVENTRICULAR TACHYCARDIA 08/01/2019 GENESISMARLENA Ot I65.23 OCCLUSION AND STENOSIS OF BILATERAL HERNANDEZ 08/01/2019 GENESISMARLENA Ot 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 08/01/2019 GENESISMARLENA Ot I80.209 PHLBTS AND [facility]HLB [facility] D[facility] 08/01/2019 GENESISMARLENA Ot J44.9 CHRONIC OBSTRUCTIVE PULMONARY DISEASE, U 08/01/2019 GENESISMARLENA Ot 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 08/01/2019 JANEY ALFORD, GRETEL Brannon Ot A04.7 ENTEROCOLITIS DUE TO CLOSTRIDIUM DIFFICI 08/01/2019 KETAN DUARTE APRN Ot R09.02 HYPOXEMIA 08/01/2019 KETAN DUARTE APRN Ot R91.1 SOLITARY PULMONARY NODULE 08/01/2019 KETAN DUARTE APRN Ot Z72.0 TOBACCO USE 08/01/2019 LULÚ MCKEON DO Ot F41. 9 ANXIETY DISORDER, UNSPECIFIED 08/01/2019 LULÚ MCKEON DO Ot J43. 8 OTHER EMPHYSEMA 08/01/2019 LULÚ MCKEON DO Ot R06. 02 SHORTNESS OF BREATH 08/01/2019 DAPHNE YUSUF Ot I70.0 ATHEROSCLEROSIS OF [place] 08/01/2019 DAPHNE YUSUF Ot I70.203 UNSP ATHSCL [place] ARTERIES OF EXTREMITI 08/01/2019 DAPHNE YUSUF Ot 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 PERFORATION OR AB 08/01/2019 ROMERO PA, ADELE L Ot R13.1 2 DYSPHAGIA, OROPHARYNGEAL PHASE 08/01/2019 JESSICA ALFORD [facility], ALI FACP CCDS Ot E11.9 TYPE 2 DIABETES MELLITUS WITHOUT COMPLIC 08/01/2019 JESSICA ALFORD [facility], ALI FACP CCDS Ot E66.9 OBESITY, UNSPECIFIED 08/01/2019 JESSICA ALFORD [facility], ALI FACP CCDS Ot I69.322 DYSARTHRIA FOLLOWING CEREBRAL INFARCTION 08/01/2019 JESSICA [facility], ALI FACP CCDS Ot I69.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 FOLLOWING CEREBRAL INFRC AFF RI 08/01/2019 JESSICA [facility], ALI FACP CCDS Ot I73.9 PERIPHERAL VASCULAR DISEASE, UNSPECIFIED 08/01/2019 JESSICA [facility], ALI FACP CCDS Ot J44.9 CHRONIC OBSTRUCTIVE PULMONARY DISEASE, U 08/01/2019 JESSICA ALFORD [facility], ALI FACP CCDS Ot R00.2 PALPITATIONS 08/01/2019 JESSICA ALFORD [facility], ALI FACP CCDS Ot Z68.31 BODY MASS INDEX (BMI) 31.0-31.9, ADULT 08/01/2019 JESSICA ALFORD [facility], ALI FACP CCDS Ot Z79.01 SOCIAL SERVICES COUNSELOR (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 OF ANTICOAGULANT 08/01/2019 JESSICA ALFORD [facility], ALI FACP CCDS Ot Z79.82 SOCIAL SERVICES COUNSELOR (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 08/01/2019 JESSICA ALFORD [facility], ALI FACP CCDS Ot Z79.899 OTHER ASSISTED (CURRENT) DRUG THERAPY 08/01/2019 JESSICA ALFORD [facility], ALI FACP CCDS Ot Z86.718 PERSONAL HISTORY OF OTHER VENOUS THROMBO 08/01/2019 JESSICA ALFORD [facility], ALI FACP CCDS Ot Z87.891 PERSONAL HISTORY OF NICOTINE DEPENDENCE 08/01/2019 JESSICA ALFORD [facility], ALI FACP CCDS Ot Z95.820 PERIPHERAL VASCULAR ANGIOPLASTY STATUS W 08/01/2019 MARJORIE EDUARDO B2B MANAGED SERVICE SALES EXEC Ot I08.1 RHEUMATIC DISORDERS OF BOTH [place] AND T 08/01/2019 MARJORIE EDURADO B2B MANAGED SERVICE SALES EXEC Ot I48.3 TYPICAL ATRIAL FLUTTER 08/01/2019 DAPHNE YUSUF B2B MANAGED SERVICE SALES EXEC Ot R59.0 LOCALIZED ENLARGED LYMPH NODES 08/01/2019 DAPHNE YUSUF B2B MANAGED SERVICE SALES EXEC Ot Z85.819 PRSNL HX OF [facility]IG [facility]LM [facility] SITE [facility] 08/01/2019 DAPHNE YUSUF B2B MANAGED SERVICE SALES EXEC Ot Z98.890 OTHER SPECIFIED POSTPROCEDURAL STATES 08/01/2019 DAPHNE YUSUF B2B MANAGED SERVICE SALES EXEC Ot R59.0 LOCALIZED ENLARGED LYMPH NODES 08/01/2019 DAPHNE YUSUF B2B MANAGED SERVICE SALES EXEC Ot Z98.890 OTHER SPECIFIED POSTPROCEDURAL STATES 08/01/2019 KETAN DUARTE GARAGEMAN Ot G47.36 SLEEP RELATED HYPOVENTILATION IN CONDITI 08/01/2019 GERALD KETAN E GARAGEMAN Ot I25.10 ATHSCL HEART DISEASE OF [place] CORONARY 08/01/2019 MARYCHUY DUARTEINE Anmol GARAGEMAN Ot J30.9 ALLERGIC RHINITIS, UNSPECIFIED 08/01/2019 KETAN DUARTE GARAGEMAN Ot J44.9 CHRONIC OBSTRUCTIVE PULMONARY DISEASE, U 08/01/2019 KETAN DUARTE GARAGEMAN Ot K80.20 CALCULUS OF GALLBLADDER W/O CHOLECYSTITI 08/01/2019 MARYCHUY DUARTEINE E GARAGEMAN Ot R91.8 OTHER NONSPECIFIC ABNORMAL FINDING OF [place] 08/01/2019 KETAN DUARTE GARAGEMAN Ot Z72.0 TOBACCO USE 08/01/2019 MARJORIE EDUARDO B2B MANAGED SERVICE SALES EXEC Ot I48.92 UNSPECIFIED ATRIAL FLUTTER 08/01/2019 JACINDA ALFORD, MARCUS Ot 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2 WHEEZING 08/01/2019 KETAN DUARTE E GARAGEMAN Ot F17.201 NICOTINE DEPENDENCE, UNSPECIFIED, IN REM 08/01/2019 GERALD, KETAN Corea GARAGEMAN Ot J44.9 CHRONIC OBSTRUCTIVE PULMONARY DISEASE, U 08/01/2019 KETAN DUARTE GARAGEMAN Ot R05 COUGH 08/01/2019 KETAN DUARTE GARAGEMAN Ot R06.2 WHEEZING 08/01/2019 LULÚ MCKEON DO M Ot F41. 9 ANXIETY DISORDER, UNSPECIFIED 08/01/2019 MIKE IYER, LULÚ M Ot J44. 9 CHRONIC OBSTRUCTIVE PULMONARY DISEASE, U 08/01/2019 MIKE DO, LULÚ M Ot R06. 02 SHORTNESS OF BREATH 08/01/2019 MIKE DO, LULÚ M Ot Z72. 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 08/01/2019 JESSICA ALFORD FACC, ALI FACP CCDS Ot M06.9 RHEUMATOID ARTHRITIS, UNSPECIFIED 08/01/2019 JESSICA ALFORD FAC, ALI FACP CCDS Ot M79.89 OTHER SPECIFIED SOFT TISSUE DISORDERS 08/01/2019 JESSICA ALFORD FACC, ALI FACP CCDS Ot R07.89 OTHER CHEST PAIN 08/01/2019 JESSICA ALFORD FACC, ALI FACP CCDS Ot D63.8 ANEMIA IN OTHER CHRONIC DISEASES CLASSIF 08/01/2019 JESSICA ALFORD FACC, ALI FACP CCDS Ot I47.1 SUPRAVENTRICULAR TACHYCARDIA 08/01/2019 JESSICA GUALLPAC, ALI FACP CCDS Ot 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 08/01/2019 JESSICA ALFORD FACC, [facility] CCDS Ot M06.9 RHEUMATOID ARTHRITIS, UNSPECIFIED 08/01/2019 JESSICA ALFORD [facility], ALI [facility] CCDS Ot M79.89 OTHER SPECIFIED SOFT TISSUE DISORDERS 08/01/2019 JESSICA ALFORD [facility], ALI [facility] CCDS Ot R07.89 OTHER CHEST PAIN 08/01/2019 GENESISMARLENA Ot E11.59 TYPE 2 DIABETES MELLITUS WITH OTH CIRCUL 08/01/2019 MARLENA HURTADO Ot F17.210 NICOTINE DEPENDENCE, CIGARETTES, UNCOMPL 08/01/2019 GENESISMARLENA Ot F41.9 ANXIETY DISORDER, UNSPECIFIED 08/01/2019 GENESISMARLENA Ot I47.1 SUPRAVENTRICULAR TACHYCARDIA 08/01/2019 MARLENA HURTADO Ot I65.23 OCCLUSION AND STENOSIS OF BILATERAL [place] 08/01/2019 MARLENA HURTADO Ot 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 9 ANXIETY DISORDER, UNSPECIFIED 08/01/2019 LULÚ MCKEON DO Ot J43. 8 OTHER EMPHYSEMA 08/01/2019 LULÚ MCKEON DO Ot R06. 02 SHORTNESS OF BREATH 08/01/2019 DAPHNE YUSUFP Ot I70.0 ATHEROSCLEROSIS OF [place] 08/01/2019 DAPHNE YUSUF Ot I70.203 UNSP ATHSCL [place] ARTERIES OF EXTREMITI 08/01/2019 DAPHNE YUSUFP Ot 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 PERFORATION OR AB 08/01/2019 ADELE ANN Ot R13.1 2 DYSPHAGIA, OROPHARYNGEAL PHASE 08/01/2019 JESSICA ALFORD [facility], ALI FACP CCDS Ot E11.9 TYPE 2 DIABETES MELLITUS WITHOUT COMPLIC 08/01/2019 JESSICA ALFORD [facility], ALI FACP CCDS Ot E66.9 OBESITY, UNSPECIFIED 08/01/2019 JESSICA ALFORD [facility], ALI FACP CCDS Ot I69.322 DYSARTHRIA FOLLOWING CEREBRAL INFARCTION 08/01/2019 JESSICA ALFORD [facility], ALI FACP CCDS Ot I69.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 FOLLOWING CEREBRAL INFRC AFF RI 08/01/2019 JESSICA ALFORD [facility], ALI FACP CCDS Ot I73.9 PERIPHERAL VASCULAR DISEASE, UNSPECIFIED 08/01/2019 JESSICA ALFORD [facility], ALI FACP CCDS Ot J44.9 CHRONIC OBSTRUCTIVE PULMONARY DISEASE, U 08/01/2019 JESSICA ALFORD [facility], ALI FACP CCDS Ot R00.2 PALPITATIONS 08/01/2019 JESSICA ALFORD [facility], ALI FACP CCDS Ot Z68.31 BODY MASS INDEX (BMI) 31.0-31.9, ADULT 08/01/2019 JESSICA ALFORD [facility], ALI FACP CCDS Ot Z79.01 SOCIAL SERVICES COUNSELOR (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 OF ANTICOAGULANT 08/01/2019 JESSICA ALFORD [facility], ALI FACP CCDS Ot Z79.82 ASSISTED (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 08/01/2019 JESSICA ALFORD [facility], ALI FACP CCDS Ot Z79.899 OTHER ASSISTED (CURRENT) DRUG THERAPY 08/01/2019 JESSICA ALFORD [facility], ALI FACP CCDS Ot Z86.718 PERSONAL HISTORY OF OTHER VENOUS THROMBO 08/01/2019 JESSICA ALFORD [facility], ALI FACP CCDS Ot Z87.891 PERSONAL HISTORY OF NICOTINE DEPENDENCE 08/01/2019 JESSICA ALFORD [facility], ALI FACP CCDS Ot Z95.820 PERIPHERAL VASCULAR ANGIOPLASTY STATUS W 08/01/2019 MARJORIE EDUARDO [employer] EXEC Ot I08.1 RHEUMATIC DISORDERS OF BOTH MITRAL AND T 08/01/2019 MARJORIE EDUARDO [employer] EXEC Ot I48.3 TYPICAL ATRIAL FLUTTER 08/01/2019 DAPHNE YUSUF [employer] EXEC Ot R59.0 LOCALIZED ENLARGED LYMPH NODES 08/01/2019 DAPHNE YUSUF [employer] EXEC Ot Z85.819 PRSNL HX OF MALIG NEOPLM [facility] SITE LI 08/01/2019 DAPHNE YUSUF [employer] EXEC Ot Z98.890 OTHER SPECIFIED POSTPROCEDURAL STATES 08/01/2019 DAPHNE YUSUF [employer] EXEC Ot R59.0 LOCALIZED ENLARGED LYMPH NODES 08/01/2019 DAPHNE YUSUF [employer] EXEC Ot Z98.890 OTHER SPECIFIED POSTPROCEDURAL STATES 08/01/2019 KETAN DUARTE GARAGEMAN Ot G47.36 SLEEP RELATED HYPOVENTILATION IN CONDITI 08/01/2019 MARYCHUY DUARTEINE E GARAGEMAN Ot I25.10 ATHSCL HEART DISEASE OF [place] CORONARY 08/01/2019 KETAN DUARTE GARAGEMAN Ot J30.9 ALLERGIC RHINITIS, UNSPECIFIED 08/01/2019 KETAN DUARTE GARAGEMAN Ot J44.9 CHRONIC OBSTRUCTIVE PULMONARY DISEASE, U 08/01/2019 KETAN DUARTE GARAGEMAN Ot K80.20 CALCULUS OF GALLBLADDER W/O CHOLECYSTITI 08/01/2019 KETAN DUARTE GARAGEMAN Ot R91.8 OTHER NONSPECIFIC ABNORMAL FINDING OF [place] 08/01/2019 KETAN DUARTE GARAGEMAN Ot Z72.0 TOBACCO USE 08/01/2019 MARJORIE EDUARDO [employer] EXEC Ot I48.92 UNSPECIFIED ATRIAL FLUTTER 08/01/2019 DAPHNE YUSUF [employer] EXEC Ot I73.9 PERIPHERAL VASCULAR DISEASE, UNSPECIFIED 08/01/2019 NAM GASPAR [employer]EC Ot R06.02 SHORTNESS OF BREATH 08/01/2019 NAM GASPAR [employer] EXEC Ot R60.9 EDEMA, UNSPECIFIED 08/01/2019 JESSICA ALFORD FACC, AUGIE ELI CCDS Ot R06.02 SHORTNESS OF BREATH 08/01/2019 KEATN DUARTE GARAGEMAN Ot G47.9 SLEEP DISORDER, UNSPECIFIED 08/01/2019 KETAN DUARTE GARAGEMAN Ot J44.9 CHRONIC OBSTRUCTIVE PULMONARY DISEASE, U 08/01/2019 KETAN DUARTE GARAGEMAN Ot R05 COUGH 08/01/2019 KETAN DUARTE GARAGEMAN Ot R06.2 WHEEZING 08/01/2019 KETAN DUARTE GARAGEMAN Ot F17.201 NICOTINE DEPENDENCE, UNSPECIFIED, IN REM 08/01/2019 GERALD, KETAN Corea GARAGEMAN Ot J44.9 CHRONIC OBSTRUCTIVE PULMONARY DISEASE, U 08/01/2019 KETAN DUARTE GARAGEMAN Ot R05 COUGH 08/01/2019 KETAN DUARTE GARAGEMAN Ot R06.2 WHEEZING 08/01/2019 LULÚ MCKEON DO Ot F41. 9 ANXIETY DISORDER, UNSPECIFIED 08/01/2019 MIKE IYER, LULÚ M Ot J44. 9 CHRONIC OBSTRUCTIVE PULMONARY DISEASE, U 08/01/2019 MIKE DO, LULÚ M Ot R06. 02 SHORTNESS OF BREATH 08/01/2019 MIKE DO, LULÚ M Ot Z72. 0 TOBACCO USE 08/01/2019 DAPHNE YUSUF Ot D50.9 IRON DEFICIENCY ANEMIA, UNSPECIFIED 08/01/2019 JANEY ALFORD, GRETEL Brannon Ot D50.9 IRON DEFICIENCY ANEMIA, UNSPECIFIED 08/01/2019 JANEY ALFORD, GRETEL Brannon Ot D50.9 IRON DEFICIENCY ANEMIA, UNSPECIFIED 08/01/2019 JANEY ALFORD, GRETEL Brannon Ot Z01.818 ENCOUNTER FOR OTHER PREPROCEDURAL EXAMIN 08/01/2019 JESSICA ALFORD FACC, ALI FACP CCDS Ot D63.8 ANEMIA IN OTHER CHRONIC DISEASES CLASSIF 08/01/2019 JESSICA GUALLPAC, ALI FACP CCDS Ot I47.1 SUPRAVENTRICULAR TACHYCARDIA 08/01/2019 JESSICA ALFORD FACJude, ALI FACP CCDS Ot 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 08/01/2019 JESSICA ALFORD FACC, ALI FACP CCDS Ot M06.9 RHEUMATOID ARTHRITIS, UNSPECIFIED 08/01/2019 JESSICA ALFORD FAC, ALI FACP CCDS Ot M79.89 OTHER SPECIFIED SOFT TISSUE DISORDERS 08/01/2019 JESSCIA ALFORD FACC, ALI FACP CCDS Ot R07.89 OTHER CHEST PAIN 08/01/2019 JESSICA GUALLPAC, ALI FACP CCDS Ot D63.8 ANEMIA IN OTHER CHRONIC DISEASES CLASSIF 08/01/2019 JESSICA ALFORD FACC, ALI FACP CCDS Ot I47.1 SUPRAVENTRICULAR TACHYCARDIA 08/01/2019 JESSICA GUALLPAC, ALI FACP CCDS Ot 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 08/01/2019 JESSICA ALFORD [facility], [facility] CCDS Ot M06.9 RHEUMATOID ARTHRITIS, UNSPECIFIED 08/01/2019 JESSICA ALFORD [facility], [facility] CCD[facility] Ot M79.89 OTHER SPECIFIED SOFT TISSUE DISORDERS 08/01/2019 JESSCIA ALFORD [facility], ALI [facility] CCDS Ot R07.89 OTHER CHEST PAIN 08/01/2019 GENESISMARLENA Ot E11.59 TYPE 2 DIABETES MELLITUS WITH OTH CIRCUL 08/01/2019 MARLENA HURTADO Ot F17.210 NICOTINE DEPENDENCE, CIGARETTES, UNCOMPL 08/01/2019 GENESISMARLENA Ot F41.9 ANXIETY DISORDER, UNSPECIFIED 08/01/2019 GENESISMARLENA Ot I47.1 SUPRAVENTRICULAR TACHYCARDIA 08/01/2019 GENESISMARLENA Ot I65.23 OCCLUSION AND STENOSIS OF BILATERAL HERNANDEZ 08/01/2019 GENESISMARLENA Ot 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 9 ANXIETY DISORDER, UNSPECIFIED 08/01/2019 LULÚ MCKEON DO Ot J43. 8 OTHER EMPHYSEMA 08/01/2019 LULÚ MCKEON DO Ot R06. 02 SHORTNESS OF BREATH 08/01/2019 DAPHNE YUSUFP Ot I70.0 ATHEROSCLEROSIS OF [place] 08/01/2019 DAPHNE YUSUFP Ot I70.203 UNSP ATHSCL [place] ARTERIES OF EXTREMITI 08/01/2019 MADELIN, DAPHNE [employer]2B [employer]ED SERV[employer] SALES EXEC Ot 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 PERFORATION OR AB 08/01/2019 ADELE ANN Ot R13.1 2 DYSPHAGIA, OROPHARYNGEAL PHASE 08/01/2019 JESSICA ALFORD [facility], ALI FACP CCDS Ot E11.9 TYPE 2 DIABETES MELLITUS WITHOUT COMPLIC 08/01/2019 JESSICA ALFORD [facility], ALI FACP CCDS Ot E66.9 OBESITY, UNSPECIFIED 08/01/2019 JESSICA ALFORD [facility], ALI FACP CCDS Ot I69.322 DYSARTHRIA FOLLOWING CEREBRAL INFARCTION 08/01/2019 JESSICA ALFORD [facility], ALI FACP CCDS Ot I69.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 FOLLOWING CEREBRAL INFRC AFF RI 08/01/2019 JESSICA ALFORD [facility], ALI FACP CCDS Ot I73.9 PERIPHERAL VASCULAR DISEASE, UNSPECIFIED 08/01/2019 JESSICA ALFORD [facility], ALI FACP CCDS Ot J44.9 CHRONIC OBSTRUCTIVE PULMONARY DISEASE, U 08/01/2019 JESSICA ALFORD [facility], ALI FACP CCDS Ot R00.2 PALPITATIONS 08/01/2019 JESSICA ALFORD [facility], ALI FACP CCDS Ot Z68.31 BODY MASS INDEX (BMI) 31.0-31.9, ADULT 08/01/2019 JESSICA ALFORD [facility], ALI FACP CCDS Ot Z79.01 SOCIAL SERVICES COUNSELOR (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 OF ANTICOAGULANT 08/01/2019 JESSICA ALFORD [facility], ALI FACP CCDS Ot Z79.82 ASSISTED (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 08/01/2019 JESSICA ALFORD [facility], ALI FACP CCDS Ot 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 08/01/2019 JESSICA ALFORD [facility], ALI FACP CCDS Ot Z86.718 PERSONAL HISTORY OF OTHER VENOUS THROMBO 08/01/2019 JESSICA ALFORD [facility], ALI FACP CCDS Ot Z87.891 PERSONAL HISTORY OF NICOTINE DEPENDENCE 08/01/2019 JESSICA ALFORD [facility], ALI FACP CCDS Ot Z95.820 PERIPHERAL VASCULAR ANGIOPLASTY STATUS W 08/01/2019 MARJORIE EDUARDO [employer]ED [employer] SALES EXEC Ot I08.1 RHEUMATIC DISORDERS OF BOTH MITRAL AND T 08/01/2019 MARJORIE EDUARDO [employer] SAL[employer] EXEC Ot I48.3 TYPICAL ATRIAL FLUTTER 08/01/2019 DAPHNE YUSUF [employer] SERV[employer] SALES EXEC Ot R59.0 LOCALIZED ENLARGED LYMPH NODES 08/01/2019 DAPHNE YUSUF [employer] EXEC Ot Z85.819 PRSNL HX OF MALIG NEOPLM OF UNSP SITE LI 08/01/2019 DAPHNE YUSUF [employer] EXEC Ot Z98.890 OTHER SPECIFIED POSTPROCEDURAL STATES 08/01/2019 DAPHNE YUSUF [employer] SAL[employer] EXEC Ot R59.0 LOCALIZED ENLARGED LYMPH NODES 08/01/2019 DAPHNE YUSUF [employer] SAL[employer] EXEC Ot Z98.890 OTHER SPECIFIED POSTPROCEDURAL STATES 08/01/2019 KETAN DUARTE GARAGEMAN Ot G47.36 SLEEP RELATED HYPOVENTILATION IN CONDITI 08/01/2019 KETAN DUARTE E GARAGEMAN Ot I25.10 ATHSCL HEART DISEASE OF [place] CORONARY 08/01/2019 KETAN DUARTE GARAGEMAN Ot J30.9 ALLERGIC RHINITIS, UNSPECIFIED 08/01/2019 KETAN DUARTE GARAGEMAN Ot J44.9 CHRONIC OBSTRUCTIVE PULMONARY DISEASE, U 08/01/2019 KETAN DUARTE GARAGEMAN Ot K80.20 CALCULUS OF GALLBLADDER W/O CHOLECYSTITI 08/01/2019 KETAN DUARTE GARAGEMAN Ot R91.8 OTHER NONSPECIFIC ABNORMAL FINDING OF VICK[place] 08/01/2019 KETAN DUARTE GARAGEMAN Ot Z72.0 TOBACCO USE 08/01/2019 MARJORIE EDUARDO [employer] SAL[employer] EXEC Ot I48.92 UNSPECIFIED ATRIAL FLUTTER 08/01/2019 MARCUS MONACO MD Ot 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, ORAL 08/01/2019 CICI ALFORD, BALJIT Cason Ot D72.819 DECREASED WHITE BLOOD CELL COUNT, UNSPEC 08/01/2019 BALJIT BOLANOS MD Ot D84.9 IMMUNODEFICIENCY, UNSPECIFIED 08/01/2019 CICI ALFORD, BALJIT Cason Ot E78.00 PURE HYPERCHOLESTEROLEMIA, UNSPECIFIED 08/01/2019 CICI ALFORD, BALJIT Cason Ot F03.90 UNSPECIFIED DEMENTIA WITHOUT BEHAVIORAL 08/01/2019 CICI ALFORD, BALJIT Cason Ot F32.9 MAJOR DEPRESSIVE DISORDER, SINGLE EPISOD 08/01/2019 BALJIT BOLANOS MD Ot F41.9 ANXIETY DISORDER, UNSPECIFIED 08/01/2019 BRUEGBALJIT MIDDLETON MD, Ot J10.08 INFLUENZA DUE TO OTH IDENT INFLUENZA VIR 08/01/2019 BALJIT BOLANOS MD Ot J18.9 PNEUMONIA, UNSPECIFIED ORGANISM 08/01/2019 BALJIT BOLANOS MD, Ot J43.9 EMPHYSEMA, UNSPECIFIED 08/01/2019 BALJIT BOLANOS MD, Ot M06.9 RHEUMATOID ARTHRITIS, UNSPECIFIED 08/01/2019 BALJIT BOLANOS MD, Ot R11.2 NAUSEA WITH VOMITING, UNSPECIFIED 08/01/2019 BALJIT BOLANOS MD, Ot Z79.82 SOCIAL SERVICES COUNSELOR (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 08/01/2019 BALJIT BOLANOS MD, Ot Z80.1 FAMILY HISTORY OF MALIG NEOPLASM OF TRAC 08/01/2019 BALJIT BOLANOS MD, Ot Z82.49 FAMILY HX OF ISCHEM HEART DIS AND OTH DI 08/01/2019 BALJIT BOLANOS MD Ot Z85.818 PRSNL HX OF MALIG NEOPLM OF SITE OF LIP, 08/01/2019 BALJIT BOLANOS MD, Ot Z86.73 PRSNL HX OF TIA (TIA), AND CEREB INFRC W 08/01/2019 BALJIT BOLANOS MD, Ot Z87.891 PERSONAL HISTORY OF NICOTINE DEPENDENCE 08/01/2019 BALJIT BOLANOS MD, Ot Z88.1 ALLERGY STATUS TO OTHER ANTIBIOTIC AGENT 08/01/2019 BALJIT BOLANOS MD Ot Z99.81 DEPENDENCE ON SUPPLEMENTAL OXYGEN 08/03/2019 MARCUS MONACO MD Ot 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 08/03/2019 MARCUS MONACO MD, Ot 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, ORAL 08/03/2019 MARCUS MONACO MD Ot F32.9 MAJOR DEPRESSIVE DISORDER, SINGLE EPISOD 08/03/2019 MARCUS MONACO MD, Ot F41.9 ANXIETY DISORDER, UNSPECIFIED 08/03/2019 MARCUS MONACO MD Ot I47.1 SUPRAVENTRICULAR TACHYCARDIA 08/03/2019 MARCUS MONACO MD Ot I80.209 PHLBTS AND THOMBOPHLB OF UNSP DEEP VESSE 08/03/2019 MARCUS MONACO MD Ot K59.00 CONSTIPATION, UNSPECIFIED 08/03/2019 MARCUS MONACO MD Ot M19.90 UNSPECIFIED OSTEOARTHRITIS, UNSPECIFIED 08/03/2019 MARCUS MONACO MD Ot T85.848 A PAIN DUE TO OTHER INTERNAL PROSTH DEV/GR 08/03/2019 MARCUS MONACO MD, Ot Z51.11 ENCOUNTER FOR ANTINEOPLASTIC CHEMOTHERAP 08/03/2019 MARCUS MONACO MD, Ot Z80.9 FAMILY HISTORY OF MALIGNANT NEOPLASM, UN 08/03/2019 MARCUS MONACO MD, Ot Z89.432 ACQUIRED ABSENCE OF LEFT FOOT 08/03/2019 MARCUS MONACO MD, Ot Z93.1 GASTROSTOMY STATUS 08/03/2019 MARCUS MONACO MD, Ot Z95.5 PRESENCE OF CORONARY ANGIOPLASTY IMPLANT 08/03/2019 MARCUS MONACO MD, Ot Z95.828 PRESENCE OF OTHER VASCULAR IMPLANTS AND 08/03/2019 MARCUS MONACO MD, Ot Z96.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 08/03/2019 MARCUS MONACO MD, Ot Z98.890 OTHER SPECIFIED POSTPROCEDURAL STATES 08/04/2019 BALJIT BOLANOS MD Ot D72.819 DECREASED WHITE BLOOD CELL COUNT, UNSPEC 08/04/2019 BALJIT BOLANOS MD Ot D84.9 IMMUNODEFICIENCY, UNSPECIFIED 08/04/2019 BALJIT BOLANOS MD Ot E78.00 PURE HYPERCHOLESTEROLEMIA, UNSPECIFIED 08/04/2019 BALJIT BOLANOS MD Ot F03.90 UNSPECIFIED DEMENTIA WITHOUT BEHAVIORAL 08/04/2019 BALJIT BOLANOS MD Ot F32.9 MAJOR DEPRESSIVE DISORDER, SINGLE EPISOD 08/04/2019 BALJIT BOLANOS MD Ot F41.9 ANXIETY DISORDER, UNSPECIFIED 08/04/2019 BALJIT BOLANOS MD Ot J10.08 INFLUENZA DUE TO OTH IDENT INFLUENZA VIR 08/04/2019 BALJIT BOLANOS MD Ot J18.9 PNEUMONIA, UNSPECIFIED ORGANISM 08/04/2019 BALJIT BOLANOS MD, Ot J43.9 EMPHYSEMA, UNSPECIFIED 08/04/2019 BALJIT BOLANOS MD Ot M06.9 RHEUMATOID ARTHRITIS, UNSPECIFIED 08/04/2019 BALJIT BOLANOS MD Ot R11.2 NAUSEA WITH VOMITING, UNSPECIFIED 08/04/2019 BALJIT BOLANOS MD Ot Z79.82 SOCIAL SERVICES COUNSELOR (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 08/04/2019 CICI ALFORD, BALJIT Cason Ot Z80.1 FAMILY HISTORY OF MALIG NEOPLASM OF TRAC 08/04/2019 BALJIT BOLANOS MD Ot Z82.49 FAMILY HX OF ISCHEM HEART DIS AND OTH DI 08/04/2019 CICI ALFORD, BALJIT Cason Ot Z85.818 PRSNL HX OF MALIG NEOPLM OF SITE OF LIP, 08/04/2019 BALJIT BOLANOS MD, Ot Z86.73 PRSNL HX OF TIA (TIA), AND CEREB INFRC W 08/04/2019 CICI ALFORD, BALJIT Cason Ot Z87.891 PERSONAL HISTORY OF NICOTINE DEPENDENCE 08/04/2019 CICI ALFORD, BALJIT Cason Ot Z88.1 ALLERGY STATUS TO OTHER ANTIBIOTIC AGENT 08/04/2019 CICI ALFORD, BALJIT Cason Ot Z99.81 DEPENDENCE ON SUPPLEMENTAL OXYGEN 08/04/2019 DAPHNE YUSUF B2B MANAGED SERVICE SALES EXEC Ot I73.9 PERIPHERAL VASCULAR DISEASE, UNSPECIFIED 08/04/2019 NAM GASPAR B2B MANAGED SERVICE SALES EXEC Ot R06.02 SHORTNESS OF BREATH 08/04/2019 NAM GASPAR B2B MANAGED SERVICE SALES EXEC Ot R60.9 EDEMA, UNSPECIFIED 08/04/2019 JESSICA ALFORD FACAUGIE FACP CCDS Ot R06.02 SHORTNESS OF BREATH 08/04/2019 KETAN DUARTE GARAGEMAN Ot G47.9 SLEEP DISORDER, UNSPECIFIED 08/04/2019 MARYCHUY DUARTEINE E GARAGEMAN Ot J44.9 CHRONIC OBSTRUCTIVE PULMONARY DISEASE, U 08/04/2019 MARYCHUY DUARTEINE Anmol GARAGEMAN Ot R05 COUGH 08/04/2019 KETAN DUARTE E GARAGEMAN Ot R06.2 WHEEZING 08/04/2019 MARYCHUY DUARTEINE E GARAGEMAN Ot F17.201 NICOTINE DEPENDENCE, UNSPECIFIED, IN REM 08/04/2019 KETAN DUARTE GARAGEMAN Ot J44.9 CHRONIC OBSTRUCTIVE PULMONARY DISEASE, U 08/04/2019 KETAN DUARTE GARAGEMAN Ot R05 COUGH 08/04/2019 KETAN DUARTE GARAGEMAN Ot R06.2 WHEEZING 08/04/2019 MIKE IYER LULÚ Brannon Ot F41. 9 ANXIETY DISORDER, UNSPECIFIED 08/04/2019 MIKE IYER LULÚ Brannon Ot J44. 9 CHRONIC OBSTRUCTIVE PULMONARY DISEASE, U 08/04/2019 MIKE IYER ULLÚ Brannon Ot R06. 02 SHORTNESS OF BREATH 08/04/2019 LULÚ MCKEON DO Ot Z72. 0 TOBACCO USE 08/04/2019 DAPHNE YUSUF Ot D50.9 IRON DEFICIENCY ANEMIA, UNSPECIFIED 08/04/2019 JANEY AFLORD, GRETEL Brannon Ot D50.9 IRON DEFICIENCY ANEMIA, UNSPECIFIED 08/04/2019 JANEY ALFORD, GRETEL Brannon Ot D50.9 IRON DEFICIENCY ANEMIA, UNSPECIFIED 08/04/2019 JANEY ALFORD, GRETEL Brannon Ot Z01.818 ENCOUNTER FOR OTHER PREPROCEDURAL EXAMIN 08/04/2019 JESSICA GUALLPAC, ALI FACP CCDS Ot D63.8 ANEMIA IN OTHER CHRONIC DISEASES CLASSIF 08/04/2019 JESSICA GUALLPAC, ALI FACP CCDS Ot I47.1 SUPRAVENTRICULAR TACHYCARDIA 08/04/2019 JESSICA ALFORD FACC, ALI FACP CCDS Ot 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 08/04/2019 JESSICA ALFORD FACC, ALI FACP CCDS Ot M06.9 RHEUMATOID ARTHRITIS, UNSPECIFIED 08/04/2019 JESSICA ALFORD FACC, ALI FACP CCDS Ot M79.89 OTHER SPECIFIED SOFT TISSUE DISORDERS 08/04/2019 JESSICA LAFORD FACC, ALI FACP CCDS Ot R07.89 OTHER CHEST PAIN 08/04/2019 JESSICA GUALLPAC, ALI FACP CCDS Ot D63.8 ANEMIA IN OTHER CHRONIC DISEASES CLASSIF 08/04/2019 JESSICA GUALLPAC, ALI FACP CCDS Ot I47.1 SUPRAVENTRICULAR TACHYCARDIA 08/04/2019 JESSICA ALFORD FACC, ALI FACP CCDS Ot 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 08/04/2019 JESSICA ALFORD FACC, ALI FACP CCDS Ot M06.9 RHEUMATOID ARTHRITIS, UNSPECIFIED 08/04/2019 JESSICA ALFORD FACC, ALI FACP CCDS Ot M79.89 OTHER SPECIFIED SOFT TISSUE DISORDERS 08/04/2019 JESSICA GUALLPAC, ALI FACP CCDS Ot R07.89 OTHER CHEST PAIN 08/04/2019 MARLENA HURTADO Gloria Ot E11.59 TYPE 2 DIABETES MELLITUS WITH OTH CIRCUL 08/04/2019 MARLENA HURTADO Gloria Ot F17.210 NICOTINE DEPENDENCE, CIGARETTES, UNCOMPL 08/04/2019 MARLENA HURTADO Gloria Ot F41.9 ANXIETY DISORDER, UNSPECIFIED 08/04/2019 MARLENA HURTADO Gloria Ot I47.1 SUPRAVENTRICULAR TACHYCARDIA 08/04/2019 GENESIS NEOTRI Gloria Ot I65.23 OCCLUSION AND STENOSIS OF BILATERAL HERNANDEZ 08/04/2019 GENESISNEOTRI Gloria Ot 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 08/04/2019 GENESIS MARLENA Gloria Ot I80.209 PHLBTS AND THOMBOPHLB OF UNSP DEEP VESSE 08/04/2019 GENESIS MARLENA Gloria Ot J44.9 CHRONIC OBSTRUCTIVE PULMONARY DISEASE, U 08/04/2019 MARLENA HURTADO Gloria Ot 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 08/04/2019 JANEY ALFORD, GRETEL Brannon Ot A04.7 ENTEROCOLITIS DUE TO CLOSTRIDIUM DIFFICI 08/04/2019 KETAN DUARTE APRN Ot R09.02 HYPOXEMIA 08/04/2019 KETAN DUARTE APRN Ot R91.1 SOLITARY PULMONARY NODULE 08/04/2019 KETAN DUARTE APRN Ot Z72.0 TOBACCO USE 08/04/2019 LULÚ MCKEON DO Ot F41. 9 ANXIETY DISORDER, UNSPECIFIED 08/04/2019 LULÚ MCKEON DO Ot J43. 8 OTHER EMPHYSEMA 08/04/2019 LULÚ MCKEON DO Ot R06. 02 SHORTNESS OF BREATH 08/04/2019 DAPHNE YUSUF Ot I70.0 ATHEROSCLEROSIS OF [place] 08/04/2019 DAPHNE YUSUF Ot I70.203 UNSP ATHSCL [place] ARTERIES OF EXTREMITI 08/04/2019 DAPHNE YUSUF Ot 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 PERFORATION OR AB 08/04/2019 ADELE ANN Ot R13.1 2 DYSPHAGIA, OROPHARYNGEAL PHASE 08/04/2019 JESSICA ALFORD [facility], [facility] CCDS Ot E11.9 TYPE 2 DIABETES MELLITUS WITHOUT COMPLIC 08/04/2019 JESSICA GUALLPA, ALI FACP CCDS Ot E66.9 OBESITY, UNSPECIFIED 08/04/2019 JESSICA AFLORD FACC, ALI FACP CCDS Ot I69.322 DYSARTHRIA FOLLOWING CEREBRAL INFARCTION 08/04/2019 JESSICA GUALLPA, ALI FACP CCDS Ot I69.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 FOLLOWING CEREBRAL INFRC AFF RI 08/04/2019 JESSICA ALFORD FACC, ALI FACP CCDS Ot I73.9 PERIPHERAL VASCULAR DISEASE, UNSPECIFIED 08/04/2019 JESSICA ALFORD [facility], ALI FACP CCDS Ot J44.9 CHRONIC OBSTRUCTIVE PULMONARY DISEASE, U 08/04/2019 JESSICA ALFORD [facility], ALI FACP CCDS Ot R00.2 PALPITATIONS 08/04/2019 JESSICA ALFORD FACC, ALI FACP CCDS Ot Z68.31 BODY MASS INDEX (BMI) 31.0-31.9, ADULT 08/04/2019 JESSICA ALFORD FACC, ALI FACP CCDS Ot Z79.01 ASSISTED (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 OF ANTICOAGULANT 08/04/2019 JESSICA ALFORD FACC, ALI FACP CCDS Ot Z79.82 ASSISTED (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 08/04/2019 JESSICA ALFORD [facility], ALI FACP CCDS Ot Z79.899 OTHER ASSISTED (CURRENT) DRUG THERAPY 08/04/2019 JESSICA GUALLPA, ALI FACP CCDS Ot Z86.718 PERSONAL HISTORY OF OTHER VENOUS THROMBO 08/04/2019 JESSICA ALFORD FACC, ALI FACP CCDS Ot Z87.891 PERSONAL HISTORY OF NICOTINE DEPENDENCE 08/04/2019 JESSICA GUALLPA, ALI FACP CCDS Ot Z95.820 PERIPHERAL VASCULAR ANGIOPLASTY STATUS W 08/04/2019 MARJORIE EDUARDO B2B MANAGED SERVICE SALES EXEC Ot I08.1 RHEUMATIC DISORDERS OF BOTH MITRAL AND T 08/04/2019 MARJORIE EDUARDO B2B MANAGED SERVICE SALES EXEC Ot I48.3 TYPICAL ATRIAL FLUTTER 08/04/2019 DAPHNE YUSUFP Ot R59.0 LOCALIZED ENLARGED LYMPH NODES 08/04/2019 DAPHNE YUSUFP Ot Z85.819 PRSNL HX OF [facility]IG [facility] S[facility] 08/04/2019 DAPHNE YUSUF B2B MANAGED SERVICE SALES EXEC Ot Z98.890 OTHER SPECIFIED POSTPROCEDURAL STATES 08/04/2019 DAPHNE YUSUF B2B MANAGED SERVICE SALES EXEC Ot R59.0 LOCALIZED ENLARGED LYMPH NODES 08/04/2019 MADELINDAPHNE BARTLETT B2B MANAGED SERVICE SALES EXEC Ot Z98.890 OTHER SPECIFIED POSTPROCEDURAL STATES 08/04/2019 KETAN DUARTE GARAGEMAN Ot G47.36 SLEEP RELATED HYPOVENTILATION IN CONDITI 08/04/2019 KETAN DUARTE GARAGEMAN Ot I25.10 ATHSCL HEART DISEASE OF [place] CORONARY 08/04/2019 KETAN DUARTE GARAGEMAN Ot J30.9 ALLERGIC RHINITIS, UNSPECIFIED 08/04/2019 KETAN DUARTE GARAGEMAN Ot J44.9 CHRONIC OBSTRUCTIVE PULMONARY DISEASE, U 08/04/2019 KETAN DUARTE GARAGEMAN Ot K80.20 CALCULUS OF GALLBLADDER W/O CHOLECYSTITI 08/04/2019 KETAN DUARTE GARAGEMAN Ot R91.8 OTHER NONSPECIFIC ABNORMAL FINDING OF [place] 08/04/2019 KETAN DUARTE APRN Ot Z72.0 TOBACCO USE 08/04/2019 MARJORIE EDUARDO Ot I48.92 UNSPECIFIED ATRIAL FLUTTER 08/04/2019 MARCUS MONACO MD Ot 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 08/04/2019 MARCUS MONACO MD Ot 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, ORAL 08/04/2019 MARCUS MONACO MD Ot F32.9 MAJOR DEPRESSIVE DISORDER, SINGLE EPISOD 08/04/2019 MARCUS MONACO MD, Ot F41.9 ANXIETY DISORDER, UNSPECIFIED 08/04/2019 MARCUS MONACO MD Ot I47.1 SUPRAVENTRICULAR TACHYCARDIA 08/04/2019 MARCUS MONACO MD Ot I80.209 PHLBTS AND THOMBOPHLB OF UNSP DEEP VESSE 08/04/2019 MARCUS MONACO MD Ot K59.00 CONSTIPATION, UNSPECIFIED 08/04/2019 MARCUS MONACO MD Ot M19.90 UNSPECIFIED OSTEOARTHRITIS, UNSPECIFIED 08/04/2019 MARCUS MONACO MD Ot T85.848 A PAIN DUE TO OTHER INTERNAL PROSTH DEV/GR 08/04/2019 MARCUS MONACO MD Ot Z51.11 ENCOUNTER FOR ANTINEOPLASTIC CHEMOTHERAP 08/04/2019 MARCUS MONACO MD Ot Z80.9 FAMILY HISTORY OF MALIGNANT NEOPLASM, UN 08/04/2019 MARCUS MONACO MD, Ot Z89.432 ACQUIRED ABSENCE OF LEFT FOOT 08/04/2019 MARCUS MONACO MD Ot Z93.1 GASTROSTOMY STATUS 08/04/2019 MARCUS MONACO MD Ot Z95.5 PRESENCE OF CORONARY ANGIOPLASTY IMPLANT 08/04/2019 MARCUS MONACO MD Ot Z95.828 PRESENCE OF OTHER VASCULAR IMPLANTS AND 08/04/2019 MARCUS MONACO MD Ot Z96.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 08/04/2019 MARCUS MONACO MD, Ot Z98.890 OTHER SPECIFIED POSTPROCEDURAL STATES 08/16/2019 DAPHNE YUSUF Ot I73.9 PERIPHERAL VASCULAR DISEASE, UNSPECIFIED 08/16/2019 NAM GASPAR B2B MANAGED SERVICE SALES EXEC Ot R06.02 SHORTNESS OF BREATH 08/16/2019 NAM GASPAR [employer]ED SERV[employer] SALES EXEC Ot R60.9 EDEMA, UNSPECIFIED 08/16/2019 JESSICA ALFORD FAC, AUGIE ELI CCDS Ot R06.02 SHORTNESS OF BREATH 08/16/2019 MARYCHUY DUARTEINE E GARAGEMAN Ot G47.9 SLEEP DISORDER, UNSPECIFIED 08/16/2019 GERALD KETAN E GARAGEMAN Ot J44.9 CHRONIC OBSTRUCTIVE PULMONARY DISEASE, U 08/16/2019 GERALD, KETAN E GARAGEMAN Ot R05 COUGH 08/16/2019 GERALD KETAN E GARAGEMAN Ot R06.2 WHEEZING 08/16/2019 GERALD KETAN E GARAGEMAN Ot F17.201 NICOTINE DEPENDENCE, UNSPECIFIED, IN REM 08/16/2019 MARYCHUY DUARTEINE E GARAGEMAN Ot J44.9 CHRONIC OBSTRUCTIVE PULMONARY DISEASE, U 08/16/2019 MARYCHUY DUARTEINE E GARAGEMAN Ot R05 COUGH 08/16/2019 GERALD KETAN E GARAGEMAN Ot R06.2 WHEEZING 08/16/2019 LULÚ MCKEON DO Ot F41. 9 ANXIETY DISORDER, UNSPECIFIED 08/16/2019 LULÚ MCKEON DO Ot J44. 9 CHRONIC OBSTRUCTIVE PULMONARY DISEASE, U 08/16/2019 LULÚ MCKEON DO Ot R06. 02 SHORTNESS OF BREATH 08/16/2019 LULÚ MCKEON DO Ot Z72. 0 TOBACCO USE 08/16/2019 DAPHNE YUSUF Ot D50.9 IRON DEFICIENCY ANEMIA, UNSPECIFIED 08/16/2019 JANEY ALFORD, GRETEL M Ot D50.9 IRON DEFICIENCY ANEMIA, UNSPECIFIED 08/16/2019 JANEY ALFORD, GRETEL Brannon Ot D50.9 IRON DEFICIENCY ANEMIA, UNSPECIFIED 08/16/2019 JANEY ALFORD, GRETEL Brannon Ot Z01.818 ENCOUNTER FOR OTHER PREPROCEDURAL EXAMIN 08/16/2019 JESSICA ALFORD FAC, ALI FACP CCDS Ot D63.8 ANEMIA IN OTHER CHRONIC DISEASES CLASSIF 08/16/2019 JESSICA ALFORD FACC, ALI FACP CCDS Ot I47.1 SUPRAVENTRICULAR TACHYCARDIA 08/16/2019 JESSICA ALFORD FACC, ALI FACP CCDS Ot 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 08/16/2019 JESSICA ALFORD FACC, ALI FACP CCDS Ot M06.9 RHEUMATOID ARTHRITIS, UNSPECIFIED 08/16/2019 JESSICA ALFORD FAC, ALI FACP CCDS Ot M79.89 OTHER SPECIFIED SOFT TISSUE DISORDERS 08/16/2019 JESSICA ALFORD FACC, ALI FACP CCDS Ot R07.89 OTHER CHEST PAIN 08/16/2019 JESSICA ALFORD FACC, ALI FACP CCDS Ot D63.8 ANEMIA IN OTHER CHRONIC DISEASES CLASSIF 08/16/2019 JESSICA ALFORD [facility], ALI FACP CCDS Ot I47.1 SUPRAVENTRICULAR TACHYCARDIA 08/16/2019 JESSICA ALFORD FAC, ALI FACP CCDS Ot 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 08/16/2019 JESSICA ALFORD [facility], ALI FACP CCDS Ot M06.9 RHEUMATOID ARTHRITIS, UNSPECIFIED 08/16/2019 JESSICA ALFORD FAC, ALI FACP CCDS Ot M79.89 OTHER SPECIFIED SOFT TISSUE DISORDERS 08/16/2019 JESSICA ALFODR [facility], ALI FACP CCDS Ot R07.89 OTHER CHEST PAIN 08/16/2019 MARLENA HURTADO Ot E11.59 TYPE 2 DIABETES MELLITUS WITH OTH CIRCUL 08/16/2019 MARLENA HURTADO Ot F17.210 NICOTINE DEPENDENCE, CIGARETTES, UNCOMPL 08/16/2019 MARLENA HURTADO Ot F41.9 ANXIETY DISORDER, UNSPECIFIED 08/16/2019 MARLENA HURTADO Ot I47.1 SUPRAVENTRICULAR TACHYCARDIA 08/16/2019 MARLENA HURTADO Ot I65.23 OCCLUSION AND STENOSIS OF BILATERAL [place] 08/16/2019 MARLENA HURTADO Ot 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 08/16/2019 GENESISMARLENA Ot I80.209 PHLBTS AND THOMBOPHLB OF UNSP DEEP VESSE 08/16/2019 GENESISMARLENA Ot J44.9 CHRONIC OBSTRUCTIVE PULMONARY DISEASE, U 08/16/2019 GENESISNEO CRUZTRI Castro Ot Z79.899 OTHER ASSISTED (CURRENT) DRUG THERAPY 08/16/2019 JANEY ALFORD, GRETEL Brannon Ot A04.7 ENTEROCOLITIS DUE TO CLOSTRIDIUM DIFFICI 08/16/2019 KETAN DUARTE APRN Ot R09.02 HYPOXEMIA 08/16/2019 KETAN DUARTE APRN Ot R91.1 SOLITARY PULMONARY NODULE 08/16/2019 KETAN DUARTE APRN Ot Z72.0 TOBACCO USE 08/16/2019 LULÚ MCKEON DO Ot F41. 9 ANXIETY DISORDER, UNSPECIFIED 08/16/2019 LULÚ MCKEON DO Ot J43. 8 OTHER EMPHYSEMA 08/16/2019 LULÚ MCKEON DO Ot R06. 02 SHORTNESS OF BREATH 08/16/2019 DAPHNE YUSUFP Ot I70.0 ATHEROSCLEROSIS OF AORTA 08/16/2019 DAPHNE YUSUF Ot I70.203 UNSP ATHSCL [place] ARTERIES OF EXTREMITI 08/16/2019 DAPHNE YUSUF B2B MANAGED SERVICE SALES EXEC Ot 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 PERFORATION OR AB 08/16/2019 ADELE ANN Ot R13.1 2 DYSPHAGIA, OROPHARYNGEAL PHASE 08/16/2019 JESSICA ALFORD FACC, AUGIE FACP CCDS Ot E11.9 TYPE 2 DIABETES MELLITUS WITHOUT COMPLIC 08/16/2019 JESSICA ALFORD FACC, ALI FACP CCDS Ot E66.9 OBESITY, UNSPECIFIED 08/16/2019 JESSICA ALFORD FACC, ALI FACP CCDS Ot I69.322 DYSARTHRIA FOLLOWING CEREBRAL INFARCTION 08/16/2019 JESSICA ALFORD FACC, ALI FACP CCDS Ot I69.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 FOLLOWING CEREBRAL INFRC AFF RI 08/16/2019 JESSICA ALFORD FACC, AUGIE FACP CCDS Ot I73.9 PERIPHERAL VASCULAR DISEASE, UNSPECIFIED 08/16/2019 JESSICA ALFORD FACC, ALI FACP CCDS Ot J44.9 CHRONIC OBSTRUCTIVE PULMONARY DISEASE, U 08/16/2019 JESSICA ALFORD FACC, AUGIE FACP CCDS Ot R00.2 PALPITATIONS 08/16/2019 JESSICA ALFORD FACC, AUGIE FACP CCDS Ot Z68.31 BODY MASS INDEX (BMI) 31.0-31.9, ADULT 08/16/2019 JESSICA ALFORD FACC, ALI FACP CCDS Ot Z79.01 ASSISTED (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 OF ANTICOAGULANT 08/16/2019 JESSICA ALFORD FACC, AUGIE FACP CCDS Ot Z79.82 SOCIAL SERVICES COUNSELOR (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 08/16/2019 JESSICA ALFORD FACC, AUGIE FACP CCDS Ot 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 08/16/2019 JESSICA ALFORD FACC, AUGIE FACP CCDS Ot Z86.718 PERSONAL HISTORY OF OTHER VENOUS THROMBO 08/16/2019 JESSICA ALFORD FACC, AUGIE FACP CCDS Ot Z87.891 PERSONAL HISTORY OF NICOTINE DEPENDENCE 08/16/2019 JESSICA ALFORD FACC, AUGIE FACP CCDS Ot Z95.820 PERIPHERAL VASCULAR ANGIOPLASTY STATUS W 08/16/2019 MARJORIE EDUARDO [employer] MANA[employer]ED SERV[employer] SALES EXEC Ot I08.1 RHEUMATIC DISORDERS OF BOTH MITRAL AND T 08/16/2019 MARJORIE EDUARDO [employer] MANAGED SERVICE SALES EXEC Ot I48.3 TYPICAL ATRIAL FLUTTER 08/16/2019 DAPHNE YUSUF [employer]2B MANAGED SERVICE SALES EXEC Ot R59.0 LOCALIZED ENLARGED LYMPH NODES 08/16/2019 DAPHNE YUSUF [employer] MANA[employer]ED SERVICE SALES EXEC Ot Z85.819 PRSNL HX OF MALIG NEOPLM OF [facility] SITE LI 08/16/2019 DAPHNE YUSUF [employer] MANAGED SERVICE SALES EXEC Ot Z98.890 OTHER SPECIFIED POSTPROCEDURAL STATES 08/16/2019 DAPHNE YUSUF [employer]2B MANAGED SERVICE SALES EXEC Ot R59.0 LOCALIZED ENLARGED LYMPH NODES 08/16/2019 DAPHNE YUSUF [employer] MANA[employer]ED SERVICE SALES EXEC Ot Z98.890 OTHER SPECIFIED POSTPROCEDURAL STATES 08/16/2019 KETAN DUARTE APRN Ot G47.36 SLEEP RELATED HYPOVENTILATION IN CONDITI 08/16/2019 KETAN DUARTE APRN Ot I25.10 ATHSCL HEART DISEASE OF [place] CORONARY 08/16/2019 KETAN DUARTE APRN Ot J30.9 ALLERGIC RHINITIS, UNSPECIFIED 08/16/2019 KETAN DUARTE APRN Ot J44.9 CHRONIC OBSTRUCTIVE PULMONARY DISEASE, U 08/16/2019 KETAN DUARTE APRN Ot K80.20 CALCULUS OF GALLBLADDER W/O CHOLECYSTITI 08/16/2019 KETAN DUARTE APRN Ot R91.8 OTHER NONSPECIFIC ABNORMAL FINDING OF [place] 08/16/2019 KETAN DUARTE APRN Ot Z72.0 TOBACCO USE 08/16/2019 MARJORIE EDUARDO Ot I48.92 UNSPECIFIED ATRIAL FLUTTER 08/16/2019 MARCUS MONACO MD Ot 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 08/16/2019 MARCUS MONACO MD Ot 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, ORAL 08/16/2019 MARCUS MONACO MD Ot F32.9 MAJOR DEPRESSIVE DISORDER, SINGLE EPISOD 08/16/2019 MARCUS MONACO MD Ot F41.9 ANXIETY DISORDER, UNSPECIFIED 08/16/2019 MARCUS MONACO MD Ot I47.1 SUPRAVENTRICULAR TACHYCARDIA 08/16/2019 MARCUS MONACO MD Ot I80.209 PHLBTS AND THOMBOPHLB OF UNSP DEEP VESSE 08/16/2019 MARCUS MONACO MD Ot K59.00 CONSTIPATION, UNSPECIFIED 08/16/2019 MARCUS MONACO MD Ot M19.90 UNSPECIFIED OSTEOARTHRITIS, UNSPECIFIED 08/16/2019 MARCUS MONACO MD Ot T85.848 A PAIN DUE TO OTHER INTERNAL PROSTH DEV/GR 08/16/2019 MARCUS MONACO MD Ot Z51.11 ENCOUNTER FOR ANTINEOPLASTIC CHEMOTHERAP 08/16/2019 MARCUS MONACO MD Ot Z80.9 FAMILY HISTORY OF MALIGNANT NEOPLASM, UN 08/16/2019 MARCUS MONACO MD Ot Z89.432 ACQUIRED ABSENCE OF LEFT FOOT 08/16/2019 MARCUS MONACO MD Ot Z93.1 GASTROSTOMY STATUS 08/16/2019 MARCUS MONACO MD Ot Z95.5 PRESENCE OF CORONARY ANGIOPLASTY IMPLANT 08/16/2019 MARCUS MONACO MD Ot Z95.828 PRESENCE OF OTHER VASCULAR IMPLANTS AND 08/16/2019 MARCUS MONACO MD Ot Z96.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 08/16/2019 MARCUS MONACO MD Ot Z98.890 OTHER SPECIFIED POSTPROCEDURAL STATES 08/16/2019 DAPHNE YUSUF B2B MANAGED SERVICE SALES EXEC Ot I73.9 PERIPHERAL VASCULAR DISEASE, UNSPECIFIED 08/16/2019 NAM GASPAR B2B MANAGED SERVICE SALES EXEC Ot R06.02 SHORTNESS OF BREATH 08/16/2019 NAM GASPAR B2B MANAGED SERVICE SALES EXEC Ot R60.9 EDEMA, UNSPECIFIED 08/16/2019 JESSICA ALFORD FAC, AUGIE FACP CCDS Ot R06.02 SHORTNESS OF BREATH 08/16/2019 GERALD, KETAN E GARAGEMAN Ot G47.9 SLEEP DISORDER, UNSPECIFIED 08/16/2019 GERALD, KETAN E GARAGEMAN Ot J44.9 CHRONIC OBSTRUCTIVE PULMONARY DISEASE, U 08/16/2019 GERALD, KETAN E GARAGEMAN Ot R05 COUGH 08/16/2019 GERALD, KETAN E GARAGEMAN Ot R06.2 WHEEZING 08/16/2019 GERALD, KETAN E GARAGEMAN Ot F17.201 NICOTINE DEPENDENCE, UNSPECIFIED, IN REM 08/16/2019 GERALD, KETAN E GARAGEMAN Ot J44.9 CHRONIC OBSTRUCTIVE PULMONARY DISEASE, U 08/16/2019 GERALD, KETAN E GARAGEMAN Ot R05 COUGH 08/16/2019 GERALD, KETAN E GARAGEMAN Ot R06.2 WHEEZING 08/16/2019 LULÚ MCKEON DO Ot F41. 9 ANXIETY DISORDER, UNSPECIFIED 08/16/2019 LULÚ MCKEON DO Ot J44. 9 CHRONIC OBSTRUCTIVE PULMONARY DISEASE, U 08/16/2019 LULÚ MCKEON DO Ot R06. 02 SHORTNESS OF BREATH 08/16/2019 LULÚ MCKEON DO Ot Z72. 0 TOBACCO USE 08/16/2019 DAPHNE YUSUF Ot D50.9 IRON DEFICIENCY ANEMIA, UNSPECIFIED 08/16/2019 JANEY ALFORD, GRETEL Brannon Ot D50.9 IRON DEFICIENCY ANEMIA, UNSPECIFIED 08/16/2019 JANEY ALFORD, GRETEL Brannon Ot D50.9 IRON DEFICIENCY ANEMIA, UNSPECIFIED 08/16/2019 JANEY ALFORD, GRETEL Brannon Ot Z01.818 ENCOUNTER FOR OTHER PREPROCEDURAL EXAMIN 08/16/2019 JESSICA ALFORD FAC, AUGIE FACP CCDS Ot D63.8 ANEMIA IN OTHER CHRONIC DISEASES CLASSIF 08/16/2019 JESSICA ALFORD FACC, ALI FACP CCDS Ot I47.1 SUPRAVENTRICULAR TACHYCARDIA 08/16/2019 JESSIAC ALFORD FAC, ALI FACP CCDS Ot 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 08/16/2019 JESSICA MD FAC, ALI FACP CCDS Ot M06.9 RHEUMATOID ARTHRITIS, UNSPECIFIED 08/16/2019 JESSICA FAC, ALI FACP CCDS Ot M79.89 OTHER SPECIFIED SOFT TISSUE DISORDERS 08/16/2019 JESSICA MD FAC, ALI FACP CCDS Ot R07.89 OTHER CHEST PAIN 08/16/2019 JESSICA FAC, ALI FACP CCDS Ot D63.8 ANEMIA IN OTHER CHRONIC DISEASES CLASSIF 08/16/2019 JESSICA FAC, ALI FACP CCDS Ot I47.1 SUPRAVENTRICULAR TACHYCARDIA 08/16/2019 JESSICA [facility], ALI FACP CCDS Ot 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 08/16/2019 JESSICA MD [facility], ALI FACP CCDS Ot M06.9 RHEUMATOID ARTHRITIS, UNSPECIFIED 08/16/2019 JESSICA [facility], ALI FACP CCDS Ot M79.89 OTHER SPECIFIED SOFT TISSUE DISORDERS 08/16/2019 JESSICA [facility], ALI FACP CCDS Ot R07.89 OTHER CHEST PAIN 08/16/2019 MARLENA HURTADO Ot E11.59 TYPE 2 DIABETES MELLITUS WITH OTH CIRCUL 08/16/2019 MARLENA HURTADO Ot F17.210 NICOTINE DEPENDENCE, CIGARETTES, UNCOMPL 08/16/2019 MARLENA HURTADO Ot F41.9 ANXIETY DISORDER, UNSPECIFIED 08/16/2019 MARLENA HURTADO Ot I47.1 SUPRAVENTRICULAR TACHYCARDIA 08/16/2019 MARLENA HURTADO Ot I65.23 OCCLUSION AND STENOSIS OF BILATERAL [place] 08/16/2019 MARLENA HURTADO Ot 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 08/16/2019 MARLENA HURTADO Ot I80.209 PHLBTS AND THOMBOPHLB OF UNSP DEEP VESSE 08/16/2019 MARLENA HURTADO Ot J44.9 CHRONIC OBSTRUCTIVE PULMONARY DISEASE, U 08/16/2019 MARLENA HURTADO Ot Z79.899 OTHER ASSISTED (CURRENT) DRUG THERAPY 08/16/2019 JANEY ALFORD, GRETEL Brannon Ot A04.7 ENTEROCOLITIS DUE TO CLOSTRIDIUM DIFFICI 08/16/2019 KETAN DUARTE APRN Ot R09.02 HYPOXEMIA 08/16/2019 KETAN DUARTE APRN Ot R91.1 SOLITARY PULMONARY NODULE 08/16/2019 KETAN DUARTE APRN Ot Z72.0 TOBACCO USE 08/16/2019 LULÚ MCKEON DO Ot F41. 9 ANXIETY DISORDER, UNSPECIFIED 08/16/2019 LULÚ MCKEON DO Ot J43. 8 OTHER EMPHYSEMA 08/16/2019 LULÚ MCKEON DO Ot R06. 02 SHORTNESS OF BREATH 08/16/2019 DAPHNE YUSUFP Ot I70.0 ATHEROSCLEROSIS OF [place] 08/16/2019 DAPHNE YUSUF B2B MANAGED SERVICE SALES EXEC Ot I70.203 UNSP ATHSCL [place] ARTERIES OF EXTREMITI 08/16/2019 DAPHNE YUSUF B2B MANAGED SERVICE SALES EXEC Ot 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 PERFORATION OR AB 08/16/2019 ADELE ANN Ot R13.1 2 DYSPHAGIA, OROPHARYNGEAL PHASE 08/16/2019 JESSICA ALFORD FACC, ALI FACP CCDS Ot E11.9 TYPE 2 DIABETES MELLITUS WITHOUT COMPLIC 08/16/2019 JESSICA ALFORD FACC, ALI FACP CCDS Ot E66.9 OBESITY, UNSPECIFIED 08/16/2019 JESSICA ALFORD FACC, ALI FACP CCDS Ot I69.322 DYSARTHRIA FOLLOWING CEREBRAL INFARCTION 08/16/2019 JESSICA ALFORD FACC, ALI FACP CCDS Ot I69.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 FOLLOWING CEREBRAL INFRC AFF RI 08/16/2019 JESSICA ALFORD FACC, ALI FACP CCDS Ot I73.9 PERIPHERAL VASCULAR DISEASE, UNSPECIFIED 08/16/2019 JESSICA ALFORD FACC, ALI FACP CCDS Ot J44.9 CHRONIC OBSTRUCTIVE PULMONARY DISEASE, U 08/16/2019 JESSICA ALFORD FACC, ALI FACP CCDS Ot R00.2 PALPITATIONS 08/16/2019 JESSICA ALFORD FACC, ALI FACP CCDS Ot Z68.31 BODY MASS INDEX (BMI) 31.0-31.9, ADULT 08/16/2019 JESSICA ALFORD FACC, ALI FACP CCDS Ot Z79.01 ASSISTED (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 OF ANTICOAGULANT 08/16/2019 JESSICA ALFORD FACC, ALI FACP CCDS Ot Z79.82 ASSISTED (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 08/16/2019 JESSICA ALFORD [facility], ALI FACP CCDS Ot Z79.899 OTHER ASSISTED (CURRENT) DRUG THERAPY 08/16/2019 JESSICA ALFORD FACC, AUGIE FACP CCDS Ot Z86.718 PERSONAL HISTORY OF OTHER VENOUS THROMBO 08/16/2019 JESSICA ALFORD FACC, ALI FACP CCDS Ot Z87.891 PERSONAL HISTORY OF NICOTINE DEPENDENCE 08/16/2019 JESSICA ALFORD [facility], AUGIE FACP CCDS Ot Z95.820 PERIPHERAL VASCULAR ANGIOPLASTY STATUS W 08/16/2019 MARJORIE EDUARDO B2B MANAGED SERVICE SALES EXEC Ot I08.1 RHEUMATIC DISORDERS OF BOTH MITRAL AND T 08/16/2019 MARJORIE EDUARDO B2B MANAGED SERVICE SALES EXEC Ot I48.3 TYPICAL ATRIAL FLUTTER 08/16/2019 DAPHNE YUSUF B2B MANAGED SERVICE SALES EXEC Ot R59.0 LOCALIZED ENLARGED LYMPH NODES 08/16/2019 DAPHNE YUSUF B2B MANAGED SERVICE SALES EXEC Ot Z85.819 PRSNL HX OF MALIG NEOPLM OF [facility] SITE LI 08/16/2019 DAPHNE YUSUF B2B MANAGED SERVICE SALES EXEC Ot Z98.890 OTHER SPECIFIED POSTPROCEDURAL STATES 08/16/2019 DAPHNE YUSUF B2B MANAGED SERVICE SALES EXEC Ot R59.0 LOCALIZED ENLARGED LYMPH NODES 08/16/2019 PILI YUSUFA B2B MANAGED SERVICE SALES EXEC Ot Z98.890 OTHER SPECIFIED POSTPROCEDURAL STATES 08/16/2019 KETAN DUARTE GARAGEMAN Ot G47.36 SLEEP RELATED HYPOVENTILATION IN CONDITI 08/16/2019 KETAN DUARTE GARAGEMAN Ot I25.10 ATHSCL HEART DISEASE OF [place] CORONARY 08/16/2019 KETAN DUARTE GARAGEMAN Ot J30.9 ALLERGIC RHINITIS, UNSPECIFIED 08/16/2019 KETAN DUARTE GARAGEMAN Ot J44.9 CHRONIC OBSTRUCTIVE PULMONARY DISEASE, U 08/16/2019 KETAN DUARTE GARAGEMAN Ot K80.20 CALCULUS OF GALLBLADDER W/O CHOLECYSTITI 08/16/2019 KETAN DUARTE GARAGEMAN Ot R91.8 OTHER NONSPECIFIC ABNORMAL FINDING OF [place] 08/16/2019 KETAN DUARTE GARAGEMAN Ot Z72.0 TOBACCO USE 08/16/2019 MARJORIE EDUARDO B2B MANAGED SERVICE SALES EXEC Ot I48.92 UNSPECIFIED ATRIAL FLUTTER 08/16/2019 MARCUS MONACO MD Ot 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 08/16/2019 MARCUS MONACO MD Ot 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, ORAL 08/16/2019 MARCUS MONACO MD Ot F32.9 MAJOR DEPRESSIVE DISORDER, SINGLE EPISOD 08/16/2019 MARCUS MONACO MD, Ot F41.9 ANXIETY DISORDER, UNSPECIFIED 08/16/2019 MARCUS MONACO MD Ot I47.1 SUPRAVENTRICULAR TACHYCARDIA 08/16/2019 MARCUS MONACO MD Ot I80.209 [facility] 08/16/2019 MARCUS MONACO MD Ot K59.00 CONSTIPATION, UNSPECIFIED 08/16/2019 MARCUS MONACO MD Ot M19.90 UNSPECIFIED OSTEOARTHRITIS, UNSPECIFIED 08/16/2019 MARCUS MONACO MD Ot T85.848 A PAIN DUE TO OTHER INTERNAL PROSTH DEV/GR 08/16/2019 MARCUS MONACO MD, Ot Z51.11 ENCOUNTER FOR ANTINEOPLASTIC CHEMOTHERAP 08/16/2019 MARCUS MONACO MD Ot Z80.9 FAMILY HISTORY OF MALIGNANT NEOPLASM, UN 08/16/2019 MARCUS MONACO MD Ot Z89.432 ACQUIRED ABSENCE OF LEFT FOOT 08/16/2019 MARCUS MONACO MD Ot Z93.1 GASTROSTOMY STATUS 08/16/2019 MARCUS MONACO MD Ot Z95.5 PRESENCE OF CORONARY ANGIOPLASTY IMPLANT 08/16/2019 MARCUS MONACO MD Ot Z95.828 PRESENCE OF OTHER VASCULAR IMPLANTS AND 08/16/2019 MARCUS MONACO MD Ot Z96.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 08/16/2019 MARCUS MONACO MD Ot Z98.890 OTHER SPECIFIED POSTPROCEDURAL STATES 08/16/2019 DAPHNE YUSUF Ot I73.9 PERIPHERAL VASCULAR DISEASE, UNSPECIFIED 08/16/2019 NAM GASPAR B2B MANAGED SERVICE SALES EXEC Ot R06.02 SHORTNESS OF BREATH 08/16/2019 NAM GASPAR Ot R60.9 EDEMA, UNSPECIFIED 08/16/2019 JESSICA ALFORD FACCAUGIE FACP CCDS Ot R06.02 SHORTNESS OF BREATH 08/16/2019 KETAN DUARTE APRN Ot G47.9 SLEEP DISORDER, UNSPECIFIED 08/16/2019 KETAN DUARTE APRN Ot J44.9 CHRONIC OBSTRUCTIVE PULMONARY DISEASE, U 08/16/2019 MARYCHUY DUARTEINE E GARAGEMAN Ot R05 COUGH 08/16/2019 GERALDMARYCHUY ELLISONINE E GARAGEMAN Ot R06.2 WHEEZING 08/16/2019 MARYCHUY DUARTEINE E GARAGEMAN Ot F17.201 NICOTINE DEPENDENCE, UNSPECIFIED, IN REM 08/16/2019 GERALDMARYCHUY ELLISONINE Anmol GARAGEMAN Ot J44.9 CHRONIC OBSTRUCTIVE PULMONARY DISEASE, U 08/16/2019 GERALDMARYCHUY ELLISONINE E GARAGEMAN Ot R05 COUGH 08/16/2019 GERALDMARYCHUY ELLISONINE Anmol GARAGEMAN Ot R06.2 WHEEZING 08/16/2019 LULÚ MCKEON DO Ot F41. 9 ANXIETY DISORDER, UNSPECIFIED 08/16/2019 LULÚ MCKEON DO Ot J44. 9 CHRONIC OBSTRUCTIVE PULMONARY DISEASE, U 08/16/2019 LULÚ MCKEON DO Ot R06. 02 SHORTNESS OF BREATH 08/16/2019 LULÚ MCKEON DO Ot Z72. 0 TOBACCO USE 08/16/2019 DAPHNE YUSUF Ot D50.9 IRON DEFICIENCY ANEMIA, UNSPECIFIED 08/16/2019 JANEY ALFORD, GRETEL Brannon Ot D50.9 IRON DEFICIENCY ANEMIA, UNSPECIFIED 08/16/2019 JANEY ALFORD, GRETEL Brannon Ot D50.9 IRON DEFICIENCY ANEMIA, UNSPECIFIED 08/16/2019 JANEY ALFORD, GRETEL Brannon Ot Z01.818 ENCOUNTER FOR OTHER PREPROCEDURAL EXAMIN 08/16/2019 JESSICA ALFORD FACC, AUGIE FACP CCDS Ot D63.8 ANEMIA IN OTHER CHRONIC DISEASES CLASSIF 08/16/2019 JESSICA ALFORD FACC, ALI FACP CCDS Ot I47.1 SUPRAVENTRICULAR TACHYCARDIA 08/16/2019 JESSICA ALFORD FACC, ALI FACP CCDS Ot 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 08/16/2019 JESSICA ALFORD FACC, ALI FACP CCDS Ot M06.9 RHEUMATOID ARTHRITIS, UNSPECIFIED 08/16/2019 JESSICA ALFORD FACC, ALI FACP CCDS Ot M79.89 OTHER SPECIFIED SOFT TISSUE DISORDERS 08/16/2019 JESSICA ALFORD FACC, ALI FACP CCDS Ot R07.89 OTHER CHEST PAIN 08/16/2019 JESSICA ALFORD FACC, ALI FACP CCDS Ot D63.8 ANEMIA IN OTHER CHRONIC DISEASES CLASSIF 08/16/2019 JESSICA ALFORD [facility], ALI FACP CCDS Ot I47.1 SUPRAVENTRICULAR TACHYCARDIA 08/16/2019 JESSICA ALFORD [facility], [facility] Ot 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 08/16/2019 JESSICA ALFORD [facility], ALI FACP CCDS Ot M06.9 RHEUMATOID ARTHRITIS, UNSPECIFIED 08/16/2019 JESSICA ALFORD [facility], [facility] CCDS Ot M79.89 OTHER SPECIFIED SOFT TISSUE DISORDERS 08/16/2019 JESSICA ALFORD [facility], [facility] CCDS Ot R07.89 OTHER CHEST PAIN 08/16/2019 MARLENA HURTADO Ot E11.59 TYPE 2 DIABETES MELLITUS WITH OTH CIRCUL 08/16/2019 MARLENA HURTADO Ot F17.210 NICOTINE DEPENDENCE, CIGARETTES, UNCOMPL 08/16/2019 MARLENA HURTADO Ot F41.9 ANXIETY DISORDER, UNSPECIFIED 08/16/2019 MARLENA HURTADO Ot I47.1 SUPRAVENTRICULAR TACHYCARDIA 08/16/2019 MARLENA HURTADO Ot I65.23 OCCLUSION AND STENOSIS OF BILATERAL [place] 08/16/2019 MARLENA HURTADO Ot 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 08/16/2019 MARLENA HURTADO Ot I80.209 PHLBTS AND THOMBOPHLB OF UNSP DEEP VESSE 08/16/2019 MARLENA HURTADO Ot J44.9 CHRONIC OBSTRUCTIVE PULMONARY DISEASE, U 08/16/2019 MARLENA HURTADO Ot Z79.899 OTHER ASSISTED (CURRENT) DRUG THERAPY 08/16/2019 JANEY ALFORD, GRETEL Brannon Ot A04.7 ENTEROCOLITIS DUE TO CLOSTRIDIUM DIFFICI 08/16/2019 KETAN DUARTE APRN Ot R09.02 HYPOXEMIA 08/16/2019 KETAN DUARTE APRN Ot R91.1 SOLITARY PULMONARY NODULE 08/16/2019 KETAN DUARTE APRN Ot Z72.0 TOBACCO USE 08/16/2019 LULÚ MCKEON DO, Ot F41. 9 ANXIETY DISORDER, UNSPECIFIED 08/16/2019 LULÚ MCKEON DO Ot J43. 8 OTHER EMPHYSEMA 08/16/2019 LULÚ MCKEON DO Ot R06. 02 SHORTNESS OF BREATH 08/16/2019 DAPHNE YUSUF B2B MANAGED SERVICE SALES EXEC Ot I70.0 ATHEROSCLEROSIS OF [place] 08/16/2019 DAPHNE YUSUF B2B MANAGED SERVICE SALES EXEC Ot I70.203 UNSP ATHSCL [place] ARTERIES OF EXTREMITI 08/16/2019 DAPHNE YUSUF B2B MANAGED SERVICE SALES EXEC Ot 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 PERFORATION OR AB 08/16/2019 ADELE ANN Ot R13.1 2 DYSPHAGIA, OROPHARYNGEAL PHASE 08/16/2019 JESSICA ALFORD FACC, ALI FACP CCDS Ot E11.9 TYPE 2 DIABETES MELLITUS WITHOUT COMPLIC 08/16/2019 JESSICA ALFORD FACC, ALI FACP CCDS Ot E66.9 OBESITY, UNSPECIFIED 08/16/2019 JESSICA ALFORD FACC, ALI FACP CCDS Ot I69.322 DYSARTHRIA FOLLOWING CEREBRAL INFARCTION 08/16/2019 JESSICA ALFORD FACC, ALI FACP CCDS Ot I69.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 FOLLOWING CEREBRAL INFRC AFF RI 08/16/2019 JESSICA ALFORD FACC, ALI FACP CCDS Ot I73.9 PERIPHERAL VASCULAR DISEASE, UNSPECIFIED 08/16/2019 JESSICA ALFORD FACC, ALI FACP CCDS Ot J44.9 CHRONIC OBSTRUCTIVE PULMONARY DISEASE, U 08/16/2019 JESSICA ALFORD FACC, ALI FACP CCDS Ot R00.2 PALPITATIONS 08/16/2019 JESSICA ALFORD FACC, ALI FACP CCDS Ot Z68.31 BODY MASS INDEX (BMI) 31.0-31.9, ADULT 08/16/2019 JESSICA ALFORD FACC, ALI FACP CCDS Ot Z79.01 SOCIAL SERVICES COUNSELOR (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 OF ANTICOAGULANT 08/16/2019 JESSICA ALFORD FACC, ALI FACP CCDS Ot Z79.82 SOCIAL SERVICES COUNSELOR (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 08/16/2019 JESSICA ALFORD FACC, ALI FACP CCDS Ot Z79.899 OTHER ASSISTED (CURRENT) DRUG THERAPY 08/16/2019 JESSICA ALFORD FACC, ALI FACP CCDS Ot Z86.718 PERSONAL HISTORY OF OTHER VENOUS THROMBO 08/16/2019 JESSICA ALFORD FACC, ALI FACP CCDS Ot Z87.891 PERSONAL HISTORY OF NICOTINE DEPENDENCE 08/16/2019 JESSICA ALFORD FACC, ALI FACP CCDS Ot Z95.820 PERIPHERAL VASCULAR ANGIOPLASTY STATUS W 08/16/2019 MARJORIE EDUARDO B2B MANAGED SERVICE SALES EXEC Ot I08.1 RHEUMATIC DISORDERS OF BOTH MITRAL AND T 08/16/2019 MARJORIE EDUARDO B2B MANAGED SERVICE SALES EXEC Ot I48.3 TYPICAL ATRIAL FLUTTER 08/16/2019 DAPHNE YUSUF B2B MANAGED SERVICE SALES EXEC Ot R59.0 LOCALIZED ENLARGED LYMPH NODES 08/16/2019 DAPHNE YUSUF B2B MANAGED SERVICE SALES EXEC Ot Z85.819 PRSNL HX OF MALIG NEOPLM OF UNSP SITE LI 08/16/2019 DAPHNE YUSUF B2B MANAGED SERVICE SALES EXEC Ot Z98.890 OTHER SPECIFIED POSTPROCEDURAL STATES 08/16/2019 PILI YUSUFA B2B MANAGED SERVICE SALES EXEC Ot R59.0 LOCALIZED ENLARGED LYMPH NODES 08/16/2019 DAPHNE YUSUF B2B MANAGED SERVICE SALES EXEC Ot Z98.890 OTHER SPECIFIED POSTPROCEDURAL STATES 08/16/2019 KETAN DUARTE APRN Ot G47.36 SLEEP RELATED HYPOVENTILATION IN CONDITI 08/16/2019 KETAN DUARTE APRN Ot I25.10 ATHSCL HEART DISEASE OF [place] CORONARY 08/16/2019 KETAN DUARTE GARAGEMAN Ot J30.9 ALLERGIC RHINITIS, UNSPECIFIED 08/16/2019 KETAN DUARTE APRN Ot J44.9 CHRONIC OBSTRUCTIVE PULMONARY DISEASE, U 08/16/2019 KETAN DUARTE APRN Ot K80.20 CALCULUS OF GALLBLADDER W/O CHOLECYSTITI 08/16/2019 KETAN DUARTE APRN Ot R91.8 OTHER NONSPECIFIC ABNORMAL FINDING OF [place] 08/16/2019 KETAN DUARTE APRN Ot Z72.0 TOBACCO USE 08/16/2019 MARJORIE EDUARDO B2B MANAGED SERVICE SALES EXEC Ot I48.92 UNSPECIFIED ATRIAL FLUTTER 08/16/2019 MARCUS MONACO MD Ot 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 08/16/2019 MARCUS MONACO MD Ot 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, ORAL 08/16/2019 MARCUS MONACO MD Ot F32.9 MAJOR DEPRESSIVE DISORDER, SINGLE EPISOD 08/16/2019 MARCUS MONACO MD Ot F41.9 ANXIETY DISORDER, UNSPECIFIED 08/16/2019 MARCUS MONACO MD Ot I47.1 SUPRAVENTRICULAR TACHYCARDIA 08/16/2019 MARCUS MONACO MD Ot I80.209 PHLBTS AND THOMBOPHLB OF UNSP DEEP VESSE 08/16/2019 MARCUS MONACO MD Ot K59.00 CONSTIPATION, UNSPECIFIED 08/16/2019 MARCUS MONACO MD Ot M19.90 UNSPECIFIED OSTEOARTHRITIS, UNSPECIFIED 08/16/2019 MARCUS MONACO MD Ot T85.848 A PAIN DUE TO OTHER INTERNAL PROSTH DEV/GR 08/16/2019 MARCUS MONACO MD, Ot Z51.11 ENCOUNTER FOR ANTINEOPLASTIC CHEMOTHERAP 08/16/2019 MARCUS MONACO MD, Ot Z80.9 FAMILY HISTORY OF MALIGNANT NEOPLASM, UN 08/16/2019 MARCUS MONACO MD Ot Z89.432 ACQUIRED ABSENCE OF LEFT FOOT 08/16/2019 MARCUS MONACO MD Ot Z93.1 GASTROSTOMY STATUS 08/16/2019 MARCUS MONACO MD Ot Z95.5 PRESENCE OF CORONARY ANGIOPLASTY IMPLANT 08/16/2019 MARCUS MONACO MD, Ot Z95.828 PRESENCE OF OTHER VASCULAR IMPLANTS AND 08/16/2019 MARCUS MONACO MD Ot Z96.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 08/16/2019 MARCUS MONACO MD Ot Z98.890 OTHER SPECIFIED POSTPROCEDURAL STATES 08/16/2019 DAPHNE YUSUF [employer]NA[employer] SALES EXEC Ot I73.9 PERIPHERAL VASCULAR DISEASE, UNSPECIFIED 08/16/2019 NAM GASPAR [employer] SALES EXEC Ot R06.02 SHORTNESS OF BREATH 08/16/2019 NAM GASPAR [employer] EXEC Ot R60.9 EDEMA, UNSPECIFIED 08/16/2019 JESSICA ALFORD FACAUGIE FACP CCDS Ot R06.02 SHORTNESS OF BREATH 08/16/2019 KETAN DUARTE GARAGEMAN Ot G47.9 SLEEP DISORDER, UNSPECIFIED 08/16/2019 MARYCHUY DUARTEINE Anmol GARAGEMAN Ot J44.9 CHRONIC OBSTRUCTIVE PULMONARY DISEASE, U 08/16/2019 KETAN DUARTE GARAGEMAN Ot R05 COUGH 08/16/2019 KETAN DUARTE GARAGEMAN Ot R06.2 WHEEZING 08/16/2019 KETAN DUARTE GARAGEMAN Ot F17.201 NICOTINE DEPENDENCE, UNSPECIFIED, IN REM 08/16/2019 KETAN DUARTE GARAGEMAN Ot J44.9 CHRONIC OBSTRUCTIVE PULMONARY DISEASE, U 08/16/2019 KETAN DUARTE GARAGEMAN Ot R05 COUGH 08/16/2019 KETAN DUARTE APRN Ot R06.2 WHEEZING 08/16/2019 MIKE IYER LULÚ Brannon Ot F41. 9 ANXIETY DISORDER, UNSPECIFIED 08/16/2019 MIKE IYER LULÚ Brannon Ot J44. 9 CHRONIC OBSTRUCTIVE PULMONARY DISEASE, U 08/16/2019 MIKE IYER LULÚ Brannon Ot R06. 02 SHORTNESS OF BREATH 08/16/2019 MIKE IYER LULÚ Brannon Ot Z72. 0 TOBACCO USE 08/16/2019 DAPHNE YUSUF Ot D50.9 IRON DEFICIENCY ANEMIA, UNSPECIFIED 08/16/2019 JANEY ALFORD, GRETEL Brannon Ot D50.9 IRON DEFICIENCY ANEMIA, UNSPECIFIED 08/16/2019 JANEY ALFORD, GRETEL Brannon Ot D50.9 IRON DEFICIENCY ANEMIA, UNSPECIFIED 08/16/2019 JANEY ALFORD, GRETEL Brannon Ot Z01.818 ENCOUNTER FOR OTHER PREPROCEDURAL EXAMIN 08/16/2019 JESSICA GUALLPAC, ALI FACP CCDS Ot D63.8 ANEMIA IN OTHER CHRONIC DISEASES CLASSIF 08/16/2019 JESSICA GUALLPAC, ALI FACP CCDS Ot I47.1 SUPRAVENTRICULAR TACHYCARDIA 08/16/2019 JESSICA GUALLPAC, ALI FACP CCDS Ot 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 08/16/2019 JESSICA GUALLPAC, ALI FACP CCDS Ot M06.9 RHEUMATOID ARTHRITIS, UNSPECIFIED 08/16/2019 JESSICA ALFORD FACC, ALI FACP CCDS Ot M79.89 OTHER SPECIFIED SOFT TISSUE DISORDERS 08/16/2019 JESSICA GUALLPAC, ALI FACP CCDS Ot R07.89 OTHER CHEST PAIN 08/16/2019 JESSICA GUALLPAC, ALI FACP CCDS Ot D63.8 ANEMIA IN OTHER CHRONIC DISEASES CLASSIF 08/16/2019 JESSICA GUALLPAC, ALI FACP CCDS Ot I47.1 SUPRAVENTRICULAR TACHYCARDIA 08/16/2019 JESSICA GUALLPAC, ALI FACP CCDS Ot 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 08/16/2019 JESSICA ALFORD FACC, ALI FACP CCDS Ot M06.9 RHEUMATOID ARTHRITIS, UNSPECIFIED 08/16/2019 JESSICA ALFORD FACC, ALI FACP CCDS Ot M79.89 OTHER SPECIFIED SOFT TISSUE DISORDERS 08/16/2019 JESSICA GUALLPAC, ALI FACP CCDS Ot R07.89 OTHER CHEST PAIN 08/16/2019 GENESISMARLENA Ot E11.59 TYPE 2 DIABETES MELLITUS WITH OTH CIRCUL 08/16/2019 GENESISMARLENA Ot F17.210 NICOTINE DEPENDENCE, CIGARETTES, UNCOMPL 08/16/2019 GENESISMARLENA Ot F41.9 ANXIETY DISORDER, UNSPECIFIED 08/16/2019 GENESISMARLENA Ot I47.1 SUPRAVENTRICULAR TACHYCARDIA 08/16/2019 MARLENA HURTADO Ot I65.23 OCCLUSION AND STENOSIS OF BILATERAL [place] 08/16/2019 MARLENA HURTADO Ot 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 08/16/2019 MARLENA HURTADO Ot I80.209 [facility] 08/16/2019 MARLENA HURTADO Ot J44.9 CHRONIC OBSTRUCTIVE PULMONARY DISEASE, U 08/16/2019 MARLENA HURTADO Ot 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 08/16/2019 JANEY ALFORD, GRETEL Brannon Ot A04.7 ENTEROCOLITIS DUE TO CLOSTRIDIUM DIFFICI 08/16/2019 KETAN DUARTE APRN Ot R09.02 HYPOXEMIA 08/16/2019 KETAN DUARTE APRN Ot R91.1 SOLITARY PULMONARY NODULE 08/16/2019 KETAN DUARTE APRN Ot Z72.0 TOBACCO USE 08/16/2019 LULÚ MCKEON DO Ot F41. 9 ANXIETY DISORDER, UNSPECIFIED 08/16/2019 LULÚ MCKEON DO Ot J43. 8 OTHER EMPHYSEMA 08/16/2019 LULÚ MCKEON DO Ot R06. 02 SHORTNESS OF BREATH 08/16/2019 DAPHNE YUSUF Ot I70.0 ATHEROSCLEROSIS OF [place] 08/16/2019 DAPHNE YUSUF Ot I70.203 [facility] ATHSCL [place] ARTERIES OF EXTREMITI 08/16/2019 DAPHNE YUSUF Ot 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 PERFORATION OR AB 08/16/2019 ADELE ANN Ot R13.1 2 DYSPHAGIA, OROPHARYNGEAL PHASE 08/16/2019 JESSICA ALFORD FAC, ALI FACP CCDS Ot E11.9 TYPE 2 DIABETES MELLITUS WITHOUT COMPLIC 08/16/2019 JESSICA ALFORD [facility], ALI FACP CCDS Ot E66.9 OBESITY, UNSPECIFIED 08/16/2019 JESSICA ALFORD [facility], ALI FACP CCDS Ot I69.322 DYSARTHRIA FOLLOWING CEREBRAL INFARCTION 08/16/2019 JESSICA ALFORD [facility], ALI FACP CCDS Ot I69.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 FOLLOWING CEREBRAL INFRC AFF RI 08/16/2019 JESSICA ALFORD [facility], ALI FACP CCDS Ot I73.9 PERIPHERAL VASCULAR DISEASE, UNSPECIFIED 08/16/2019 JESSICA ALFORD [facility], ALI FACP CCDS Ot J44.9 CHRONIC OBSTRUCTIVE PULMONARY DISEASE, U 08/16/2019 JESSICA ALFORD [facility], ALI FACP CCDS Ot R00.2 PALPITATIONS 08/16/2019 JESSICA ALFORD [facility], ALI FACP CCDS Ot Z68.31 BODY MASS INDEX (BMI) 31.0-31.9, ADULT 08/16/2019 JESSICA ALFORD [facility], ALI FACP CCDS Ot Z79.01 SOCIAL SERVICES COUNSELOR (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 OF ANTICOAGULANT 08/16/2019 JESSICA ALFORD [facility], ALI FACP CCDS Ot Z79.82 SOCIAL SERVICES COUNSELOR (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 08/16/2019 JESSICA ALFORD [facility], ALI FACP CCDS Ot 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 08/16/2019 JESSICA ALFORD [facility], ALI FACP CCDS Ot Z86.718 PERSONAL HISTORY OF OTHER VENOUS THROMBO 08/16/2019 JESSICA ALFORD [facility], ALI FACP CCDS Ot Z87.891 PERSONAL HISTORY OF NICOTINE DEPENDENCE 08/16/2019 JESSICA ALFORD [facility], ALI FACP CCDS Ot Z95.820 PERIPHERAL VASCULAR ANGIOPLASTY STATUS W 08/16/2019 MARJORIE EDUARDO [employer] SERV[employer] SALES EXEC Ot I08.1 RHEUMATIC DISORDERS OF BOTH MITRAL AND T 08/16/2019 MARJORIE EDUARDO [employer]2B MANAGED SERVICE SALES EXEC Ot I48.3 TYPICAL ATRIAL FLUTTER 08/16/2019 DAPHNE YUSUF [employer] MANAGED SERVICE SALES EXEC Ot R59.0 LOCALIZED ENLARGED LYMPH NODES 08/16/2019 DAPHNE YUSUFP Ot Z85.819 PRSNL HX OF MALIG NEOPLM OF [facility] SITE LI 08/16/2019 DAPHNE YUSUF [employer]2B MANAGED SERVICE SALES EXEC Ot Z98.890 OTHER SPECIFIED POSTPROCEDURAL STATES 08/16/2019 MADELINJESSICA PADILLANDA B2B MANAGED SERVICE SALES EXEC Ot R59.0 LOCALIZED ENLARGED LYMPH NODES 08/16/2019 DAPHNE YUSUF [employer] MANA[employer]ED SERVICE SALES EXEC Ot Z98.890 OTHER SPECIFIED POSTPROCEDURAL STATES 08/16/2019 KETAN DUARTE GARAGEMAN Ot G47.36 SLEEP RELATED HYPOVENTILATION IN CONDITI 08/16/2019 KETAN DUARTE APRN Ot I25.10 ATHSCL HEART DISEASE OF [place] CORONARY 08/16/2019 KETAN DUARTE GARAGEMAN Ot J30.9 ALLERGIC RHINITIS, UNSPECIFIED 08/16/2019 KETAN DUARTE APRN Ot J44.9 CHRONIC OBSTRUCTIVE PULMONARY DISEASE, U 08/16/2019 KETAN DUARTE APRN Ot K80.20 CALCULUS OF GALLBLADDER W/O CHOLECYSTITI 08/16/2019 KETAN DUARTE APRN Ot R91.8 OTHER NONSPECIFIC ABNORMAL FINDING OF [place] 08/16/2019 KETAN DUARTE APRN Ot Z72.0 TOBACCO USE 08/16/2019 MARJORIE EDUARDO Ot I48.92 UNSPECIFIED ATRIAL FLUTTER 08/16/2019 MARCUS MONACO MD Ot 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 08/16/2019 MARCUS MONACO MD Ot 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, ORAL 08/16/2019 MARCUS MONACO MD Ot F32.9 MAJOR DEPRESSIVE DISORDER, SINGLE EPISOD 08/16/2019 MARCUS MONACO MD Ot F41.9 ANXIETY DISORDER, UNSPECIFIED 08/16/2019 MARCUS MONACO MD Ot I47.1 SUPRAVENTRICULAR TACHYCARDIA 08/16/2019 MARCUS MONACO MD Ot I80.209 PHLBTS AND THOMBOPHLB OF UNSP DEEP VESSE 08/16/2019 MARCUS MONACO MD Ot K59.00 CONSTIPATION, UNSPECIFIED 08/16/2019 MARCUS MONACO MD Ot M19.90 UNSPECIFIED OSTEOARTHRITIS, UNSPECIFIED 08/16/2019 MARCUS MONACO MD Ot T85.848 A PAIN DUE TO OTHER INTERNAL PROSTH DEV/GR 08/16/2019 MARCUS MONACO MD Ot Z51.11 ENCOUNTER FOR ANTINEOPLASTIC CHEMOTHERAP 08/16/2019 MARCUS MONACO MD Ot Z80.9 FAMILY HISTORY OF MALIGNANT NEOPLASM, UN 08/16/2019 MARCUS MONACO MD Ot Z89.432 ACQUIRED ABSENCE OF LEFT FOOT 08/16/2019 MARCUS MONACO MD Ot Z93.1 GASTROSTOMY STATUS 08/16/2019 MARCUS MONACO MD Ot Z95.5 PRESENCE OF CORONARY ANGIOPLASTY IMPLANT 08/16/2019 MARCUS MONACO MD Ot Z95.828 PRESENCE OF OTHER VASCULAR IMPLANTS AND 08/16/2019 MARCUS MONACO MD Ot Z96.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 08/16/2019 MARCUS MONACO MD Ot Z98.890 OTHER SPECIFIED POSTPROCEDURAL STATES 08/17/2019 DAPHNE YUSUF Ot I73.9 PERIPHERAL VASCULAR DISEASE, UNSPECIFIED 08/17/2019 NAM GASPAR [employer]2B MANAGED SERVICE SALES EXEC Ot R06.02 SHORTNESS OF BREATH 08/17/2019 NAM GASPARP Ot R60.9 EDEMA, UNSPECIFIED 08/17/2019 JESSICA ALFORD FAC, AUGIE ELI CCDS Ot R06.02 SHORTNESS OF BREATH 08/17/2019 KETAN DUARTE GARAGEMAN Ot G47.9 SLEEP DISORDER, UNSPECIFIED 08/17/2019 KETAN DUARTE GARAGEMAN Ot J44.9 CHRONIC OBSTRUCTIVE PULMONARY DISEASE, U 08/17/2019 KETAN DUARTE GARAGEMAN Ot R05 COUGH 08/17/2019 KETAN DUARTE GARAGEMAN Ot R06.2 WHEEZING 08/17/2019 MARYCHUY DUARTEINE E GARAGEMAN Ot F17.201 NICOTINE DEPENDENCE, UNSPECIFIED, IN REM 08/17/2019 KETAN DUARTE GARAGEMAN Ot J44.9 CHRONIC OBSTRUCTIVE PULMONARY DISEASE, U 08/17/2019 KETAN DUARTE GARAGEMAN Ot R05 COUGH 08/17/2019 MARYCHUY DUARTEINE Anmol GARAGEMAN Ot R06.2 WHEEZING 08/17/2019 LULÚ MCKEON DO Ot F41. 9 ANXIETY DISORDER, UNSPECIFIED 08/17/2019 LULÚ MCKEON DO Ot J44. 9 CHRONIC OBSTRUCTIVE PULMONARY DISEASE, U 08/17/2019 LULÚ MCKEON DO Ot R06. 02 SHORTNESS OF BREATH 08/17/2019 LULÚ MCKEON DO Ot Z72. 0 TOBACCO USE 08/17/2019 DAPHNE YUSUF Ot D50.9 IRON DEFICIENCY ANEMIA, UNSPECIFIED 08/17/2019 JANEY ALFORD, GRETEL Brannon Ot D50.9 IRON DEFICIENCY ANEMIA, UNSPECIFIED 08/17/2019 JANEY ALFORD, GRETEL Brannon Ot D50.9 IRON DEFICIENCY ANEMIA, UNSPECIFIED 08/17/2019 JANEY ALFORD, GRETEL Brannon Ot Z01.818 ENCOUNTER FOR OTHER PREPROCEDURAL EXAMIN 08/17/2019 JESSICA ALFORD FACC, ALI FACP CCDS Ot D63.8 ANEMIA IN OTHER CHRONIC DISEASES CLASSIF 08/17/2019 JESSICA ALFORD FACC, ALI FACP CCDS Ot I47.1 SUPRAVENTRICULAR TACHYCARDIA 08/17/2019 JESSICA ALFORD FACC, ALI FACP CCDS Ot 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 08/17/2019 JESSICA ALFORD FACC, ALI FACP CCDS Ot M06.9 RHEUMATOID ARTHRITIS, UNSPECIFIED 08/17/2019 JESSICA ALFORD FACC, ALI FACP CCDS Ot M79.89 OTHER SPECIFIED SOFT TISSUE DISORDERS 08/17/2019 JESSICA ALFORD FACC, ALI FACP CCDS Ot R07.89 OTHER CHEST PAIN 08/17/2019 JESSICA ALFORD FACC, ALI FACP CCDS Ot D63.8 ANEMIA IN OTHER CHRONIC DISEASES CLASSIF 08/17/2019 JESSICA ALFORD FACC, ALI FACP CCDS Ot I47.1 SUPRAVENTRICULAR TACHYCARDIA 08/17/2019 JESSICA ALFORD FACC, ALI FACP CCDS Ot 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 08/17/2019 JESSICA ALFORD FACC, ALI FACP CCDS Ot M06.9 RHEUMATOID ARTHRITIS, UNSPECIFIED 08/17/2019 JESSICA ALFORD FACC, ALI FACP CCDS Ot M79.89 OTHER SPECIFIED SOFT TISSUE DISORDERS 08/17/2019 JESSICA ALFORD FACC, ALI FACP CCDS Ot R07.89 OTHER CHEST PAIN 08/17/2019 MARLENA HURTADO Ot E11.59 TYPE 2 DIABETES MELLITUS WITH OTH CIRCUL 08/17/2019 MARLENA HURTADO Ot F17.210 NICOTINE DEPENDENCE, CIGARETTES, UNCOMPL 08/17/2019 MARLENA HURTADO Ot F41.9 ANXIETY DISORDER, UNSPECIFIED 08/17/2019 MARLENA HURTADO Ot I47.1 SUPRAVENTRICULAR TACHYCARDIA 08/17/2019 MARLENA HURTADO Ot I65.23 OCCLUSION AND STENOSIS OF BILATERAL HERNANDEZ 08/17/2019 MARLENA HURTADO Gloria Ot 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 08/17/2019 GENESISNEOTRI Gloria Ot I80.209 PHLBTS AND THOMBOPHLB OF UNSP DEEP VESSE 08/17/2019 MARLENA HURTADO Gloria Ot J44.9 CHRONIC OBSTRUCTIVE PULMONARY DISEASE, U 08/17/2019 GENESISMARLENA CRUZ Gloria Ot Z79.899 OTHER ASSISTED (CURRENT) DRUG THERAPY 08/17/2019 JANEY ALFORD, GRETEL Brannon Ot A04.7 ENTEROCOLITIS DUE TO CLOSTRIDIUM DIFFICI 08/17/2019 KETAN DUARTE APRN Ot R09.02 HYPOXEMIA 08/17/2019 KETAN DUARTE APRN Ot R91.1 SOLITARY PULMONARY NODULE 08/17/2019 KETAN DUARTE APRN Ot Z72.0 TOBACCO USE 08/17/2019 LULÚ MCKEON DO Ot F41. 9 ANXIETY DISORDER, UNSPECIFIED 08/17/2019 LULÚ MCKEON DO Ot J43. 8 OTHER EMPHYSEMA 08/17/2019 LULÚ MCKEON DO Ot R06. 02 SHORTNESS OF BREATH 08/17/2019 DAPHNE YUSUFP Ot I70.0 ATHEROSCLEROSIS OF [place] 08/17/2019 DAPHNE YUSUFP Ot I70.203 UNSP ATHSCL [place] ARTERIES OF EXTREMITI 08/17/2019 DAPHNE YUSUFP Ot 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 PERFORATION OR AB 08/17/2019 ADELE ANN Ot R13.1 2 DYSPHAGIA, OROPHARYNGEAL PHASE 08/17/2019 JESSICA ALFORD FACC, ALI FACP CCDS Ot E11.9 TYPE 2 DIABETES MELLITUS WITHOUT COMPLIC 08/17/2019 JESSICA ALFORD FACC, ALI FACP CCDS Ot E66.9 OBESITY, UNSPECIFIED 08/17/2019 JESSCIA ALFORD FACC, ALI FACP CCDS Ot I69.322 DYSARTHRIA FOLLOWING CEREBRAL INFARCTION 08/17/2019 JESSICA ALFORD FACC, ALI FACP CCDS Ot I69.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 FOLLOWING CEREBRAL INFRC AFF RI 08/17/2019 JESSICA ALFORD FACC, ALI FACP CCDS Ot I73.9 PERIPHERAL VASCULAR DISEASE, UNSPECIFIED 08/17/2019 JESSICA ALFORD FACC, ALI FACP CCDS Ot J44.9 CHRONIC OBSTRUCTIVE PULMONARY DISEASE, U 08/17/2019 JESSICA ALFORD FACC, ALI FACP CCDS Ot R00.2 PALPITATIONS 08/17/2019 JESSICA ALFORD FACC, ALI FACP CCDS Ot Z68.31 BODY MASS INDEX (BMI) 31.0-31.9, ADULT 08/17/2019 JESSICA ALFORD FACC, ALI FACP CCDS Ot Z79.01 ASSISTED (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 OF ANTICOAGULANT 08/17/2019 JESSICA ALFORD FACC, ALI FACP CCDS Ot Z79.82 ASSISTED (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 08/17/2019 JESSICA ALFORD [facility], ALI FACP CCDS Ot Z79.899 OTHER ASSISTED (CURRENT) DRUG THERAPY 08/17/2019 JESSICA ALFORD FACC, ALI FACP CCDS Ot Z86.718 PERSONAL HISTORY OF OTHER VENOUS THROMBO 08/17/2019 JESSICA ALFORD FACC, ALI FACP CCDS Ot Z87.891 PERSONAL HISTORY OF NICOTINE DEPENDENCE 08/17/2019 JESSICA ALFORD FACC, ALI FACP CCDS Ot Z95.820 PERIPHERAL VASCULAR ANGIOPLASTY STATUS W 08/17/2019 MARJORIE EDUARDO B2B MANAGED SERVICE SALES EXEC Ot I08.1 RHEUMATIC DISORDERS OF BOTH MITRAL AND T 08/17/2019 MARJORIE EDUARDO B2B MANAGED SERVICE SALES EXEC Ot I48.3 TYPICAL ATRIAL FLUTTER 08/17/2019 DAPHNE YUSUF B2B MANAGED SERVICE SALES EXEC Ot R59.0 LOCALIZED ENLARGED LYMPH NODES 08/17/2019 DAPHNE YUSUF B2B MANAGED SERVICE SALES EXEC Ot Z85.819 PRSNL HX OF MALIG NEOPLM OF [facility] SITE LI 08/17/2019 DAPHNE YUSUF B2B MANAGED SERVICE SALES EXEC Ot Z98.890 OTHER SPECIFIED POSTPROCEDURAL STATES 08/17/2019 DAPHNE YUSUF B2B MANAGED SERVICE SALES EXEC Ot R59.0 LOCALIZED ENLARGED LYMPH NODES 08/17/2019 DAPHNE YUSUF B2B MANAGED SERVICE SALES EXEC Ot Z98.890 OTHER SPECIFIED POSTPROCEDURAL STATES 08/17/2019 KETAN DUARTE APRN Ot G47.36 SLEEP RELATED HYPOVENTILATION IN CONDITI 08/17/2019 KETAN DUARTE APRN Ot I25.10 ATHSCL HEART DISEASE OF [place] CORONARY 08/17/2019 KETAN DUARTE APRN Ot J30.9 ALLERGIC RHINITIS, UNSPECIFIED 08/17/2019 KETAN DUARTE APRN Ot J44.9 CHRONIC OBSTRUCTIVE PULMONARY DISEASE, U 08/17/2019 KETAN DUARTE APRN Ot K80.20 CALCULUS OF GALLBLADDER W/O CHOLECYSTITI 08/17/2019 KETAN DUARTE APRN Ot R91.8 OTHER NONSPECIFIC ABNORMAL FINDING OF [place] 08/17/2019 KETAN DUARTE APRN Ot Z72.0 TOBACCO USE 08/17/2019 MARJORIE EDUARDO Ot I48.92 UNSPECIFIED ATRIAL FLUTTER 08/17/2019 MARCUS MONACO MD Ot 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 08/17/2019 MARCUS MONACO MD Ot 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, ORAL 08/17/2019 MARCUS MONACO MD Ot F32.9 MAJOR DEPRESSIVE DISORDER, SINGLE EPISOD 08/17/2019 MARCSU MONACO MD Ot F41.9 ANXIETY DISORDER, UNSPECIFIED 08/17/2019 MARCUS MONACO MD Ot I47.1 SUPRAVENTRICULAR TACHYCARDIA 08/17/2019 MARCUS MONACO MD Ot I80.209 PHLBTS AND THOMBOPHLB OF UNSP DEEP VESSE 08/17/2019 MARCUS MONACO MD Ot K59.00 CONSTIPATION, UNSPECIFIED 08/17/2019 MARCUS MONACO MD Ot M19.90 UNSPECIFIED OSTEOARTHRITIS, UNSPECIFIED 08/17/2019 MARCUS MONACO MD Ot T85.848 A PAIN DUE TO OTHER INTERNAL PROSTH DEV/GR 08/17/2019 MARCUS MONACO MD Ot Z51.11 ENCOUNTER FOR ANTINEOPLASTIC CHEMOTHERAP 08/17/2019 MARCUS MONACO MD Ot Z80.9 FAMILY HISTORY OF MALIGNANT NEOPLASM, UN 08/17/2019 MARCUS MONACO MD Ot Z89.432 ACQUIRED ABSENCE OF LEFT FOOT 08/17/2019 MARCUS MONACO MD Ot Z93.1 GASTROSTOMY STATUS 08/17/2019 MARCUS MONACO MD Ot Z95.5 PRESENCE OF CORONARY ANGIOPLASTY IMPLANT 08/17/2019 AMRCUS MONACO MD Ot Z95.828 PRESENCE OF OTHER VASCULAR IMPLANTS AND 08/17/2019 MARCUS MONACO MD Ot Z96.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 08/17/2019 MARCUS MONACO MD Ot Z98.890 OTHER SPECIFIED POSTPROCEDURAL STATES 08/18/2019 SATNAM MIKE MD Ot E78.00 PURE HYPERCHOLESTEROLEMIA, UNSPECIFIED 08/18/2019 SATNAM MIKE MD Ot F03.90 UNSPECIFIED DEMENTIA WITHOUT BEHAVIORAL 08/18/2019 SATNAM MIKE MD Ot F32 .9 MAJOR DEPRESSIVE DISORDER, SINGLE EPISOD 08/18/2019 SATNAM MIKE MD Ot F41 .9 ANXIETY DISORDER, UNSPECIFIED 08/18/2019 SATNAM MIKE MD Ot G47.00 INSOMNIA, UNSPECIFIED 08/18/2019 SATNAM MIKE MD Ot H93.19 TINNITUS, UNSPECIFIED EAR 08/18/2019 SATNAM MIKE MD Ot I10 ESSENTIAL (PRIMARY) HYPERTENSION 08/18/2019 SATNAM MIKE MD Ot I26.99 OTHER PULMONARY EMBOLISM WITHOUT ACUTE C 08/18/2019 SATNAM MIKE MD Ot I69.322 DYSARTHRIA FOLLOWING CEREBRAL INFARCTION 08/18/2019 SATNAM MIKE MD Ot I69.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 FOLLOWING CEREBRAL INFRC AFF RI 08/18/2019 SATNAM MIKE MD Ot I69.391 DYSPHAGIA FOLLOWING CEREBRAL INFARCTION 08/18/2019 SATNAM MIKE MD Ot I70.203 UNSP ATHSCL [place] ARTERIES OF EXTREMITI 08/18/2019 SATNAM MIKE MD Ot I73 .9 PERIPHERAL VASCULAR DISEASE, UNSPECIFIED 08/18/2019 SATNAM MIKE MD Ot J30 .2 OTHER SEASONAL ALLERGIC RHINITIS 08/18/2019 SATNAM MIKE MD Ot J43 .9 EMPHYSEMA, UNSPECIFIED 08/18/2019 SATNAM MIKE MD Ot J98.11 ATELECTASIS 08/18/2019 SATNAM MIKE MD Ot M06 .9 RHEUMATOID ARTHRITIS, UNSPECIFIED 08/18/2019 SATNAM MIKE MD Ot M19.91 PRIMARY OSTEOARTHRITIS, UNSPECIFIED SITE 08/18/2019 SATNAM MIKE MD Ot R53.81 OTHER MALAISE 08/18/2019 SATNAM MIKE MD Ot R91 .8 OTHER NONSPECIFIC ABNORMAL FINDING OF [place] 08/18/2019 SATNAM MIKE MD Ot Z85.21 PERSONAL HISTORY OF MALIGNANT NEOPLASM O 08/18/2019 SATNAM MIKE MD, Ot Z85.828 PERSONAL HISTORY OF OTHER MALIGNANT NEOP 08/18/2019 SATNAM MIKE MD, Ot Z87.891 PERSONAL HISTORY OF NICOTINE DEPENDENCE 08/18/2019 SATNAM MIKE MD, Ot Z89.432 ACQUIRED ABSENCE OF LEFT FOOT 08/18/2019 SATNAM MIKE MD Ot Z92.21 PERSONAL HISTORY OF ANTINEOPLASTIC CHEMO 08/18/2019 SATNAM MIKE MD, Ot Z92 .3 PERSONAL HISTORY OF IRRADIATION 08/18/2019 SATNAM MIKE MD, Ot Z95.828 PRESENCE OF OTHER VASCULAR IMPLANTS AND 08/18/2019 SATNAM MIKE MD Ot Z99.81 DEPENDENCE ON SUPPLEMENTAL OXYGEN 08/18/2019 SATNAM MIKE MD, Ot B37 .0 CANDIDAL STOMATITIS 08/18/2019 SATNAM MIKE MD Ot E78.00 PURE HYPERCHOLESTEROLEMIA, UNSPECIFIED 08/18/2019 SATNAM MIKE MD Ot F03.90 UNSPECIFIED DEMENTIA WITHOUT BEHAVIORAL 08/18/2019 SATNAM MIKE MD Ot F32 .9 MAJOR DEPRESSIVE DISORDER, SINGLE EPISOD 08/18/2019 SATNAM MIKE MD, Ot F41 .9 ANXIETY DISORDER, UNSPECIFIED 08/18/2019 SATNAM MIKE MD Ot G47.00 INSOMNIA, UNSPECIFIED 08/18/2019 SATNAM MIKE MD Ot H93.19 TINNITUS, UNSPECIFIED EAR 08/18/2019 SATNAM MIKE MD Ot I10 ESSENTIAL (PRIMARY) HYPERTENSION 08/18/2019 SATNAM MIKE MD Ot I26.99 OTHER PULMONARY EMBOLISM WITHOUT ACUTE C 08/18/2019 SATNAM MIKE MD Ot I69.322 DYSARTHRIA FOLLOWING CEREBRAL INFARCTION 08/18/2019 SATNAM MIKE MD Ot I69.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 FOLLOWING CEREBRAL INFRC AFF RI 08/18/2019 SATNAM MIKE MD Ot I69.391 DYSPHAGIA FOLLOWING CEREBRAL INFARCTION 08/18/2019 SATNAM MIKE MD Ot I70.203 UNSP ATHSCL [place] ARTERIES OF EXTREMITI 08/18/2019 SATNAM MIKE MD Ot I73 .9 PERIPHERAL VASCULAR DISEASE, UNSPECIFIED 08/18/2019 SATNAM MIKE MD, Ot J18 .9 PNEUMONIA, UNSPECIFIED ORGANISM 08/18/2019 SATNAM MIKE MD, Ot J30 .2 OTHER SEASONAL ALLERGIC RHINITIS 08/18/2019 SATNAM MIKE MD, Ot J43 .9 EMPHYSEMA, UNSPECIFIED 08/18/2019 SATNAM MIKE MD, Ot J98.11 ATELECTASIS 08/18/2019 SATNAM MIKE MD, Ot M06 .9 RHEUMATOID ARTHRITIS, UNSPECIFIED 08/18/2019 SATNAM MIKE MD, Ot M19.91 PRIMARY OSTEOARTHRITIS, UNSPECIFIED SITE 08/18/2019 SATNAM MIKE MD Ot R13.12 DYSPHAGIA, OROPHARYNGEAL PHASE 08/18/2019 SATNAM MIKE MD Ot R53.81 OTHER MALAISE 08/18/2019 SATNAM MIKE MD Ot R91 .8 OTHER NONSPECIFIC ABNORMAL FINDING OF [place] 08/18/2019 SATNAM MIKE MD, Ot Z85.21 PERSONAL HISTORY OF MALIGNANT NEOPLASM O 08/18/2019 SATNAM MIKE MD Ot Z85.828 PERSONAL HISTORY OF OTHER MALIGNANT NEOP 08/18/2019 SATNAM MIKE MD, Ot Z87.891 PERSONAL HISTORY OF NICOTINE DEPENDENCE 08/18/2019 SATNAM MIKE MD, Ot Z89.432 ACQUIRED ABSENCE OF LEFT FOOT 08/18/2019 SATNAM MIKE MD, Ot Z92.21 PERSONAL HISTORY OF ANTINEOPLASTIC CHEMO 08/18/2019 SATNAM MIKE MD, Ot Z92 .3 PERSONAL HISTORY OF IRRADIATION 08/18/2019 SATNAM MIKE MD, Ot Z93 .1 GASTROSTOMY STATUS 08/18/2019 SATNAM MIKE MD Ot Z95.828 PRESENCE OF OTHER VASCULAR IMPLANTS AND 08/18/2019 SATNAM MIKE MD Ot Z99.81 DEPENDENCE ON SUPPLEMENTAL OXYGEN 08/23/2019 JUNIOR ORNELAS MD Ot V58. 61 ANTICOAGULANTS,LT,CURRENT USE 08/23/2019 JUNIOR ORNELAS MD Ot V58. 83 ENCOUNTER FOR THERAPEUTIC DRUG MONITORIN 08/23/2019 MARJORIE EDUARDO B2B MANAGED SERVICE SALES EXEC Ot 305.1 TOBACCO USE DISORDER 08/23/2019 MARJORIE EDUARDO B2B MANAGED SERVICE SALES EXEC Ot 427.0 PAROX ATRIAL TACHYCARDIA 08/23/2019 MARJORIE EDUARDO B2B MANAGED SERVICE SALES EXEC Ot 443.9 PERIPH VASCULAR DIS NOS 08/23/2019 MARJORIE EDUARDO Carlyn B2B MANAGED SERVICE SALES EXEC Ot 4 96 CHR AIRWAY OBSTRUCT NEC 08/23/2019 DAPHNE YUSUF B2B MANAGED SERVICE SALES EXEC Ot I73.9 PERIPHERAL VASCULAR DISEASE, UNSPECIFIED 08/23/2019 NAM GASPAR Myrna B2B MANAGED SERVICE SALES EXEC Ot R06.02 SHORTNESS OF BREATH 08/23/2019 HUBERT NAM Norris B2B MANAGED SERVICE SALES EXEC Ot R60.9 EDEMA, UNSPECIFIED 08/23/2019 JESSICA ALFORD FAC, AUGIE GUALLPAP CCDS Ot R06.02 SHORTNESS OF BREATH 08/23/2019 GERALD, KETAN E GARAGEMAN Ot G47.9 SLEEP DISORDER, UNSPECIFIED 08/23/2019 MARYCHUY DUARTEINE Anmol GARAGEMAN Ot J44.9 CHRONIC OBSTRUCTIVE PULMONARY DISEASE, U 08/23/2019 GERALD KETAN E GARAGEMAN Ot R05 COUGH 08/23/2019 GERALD KETAN E GARAGEMAN Ot R06.2 WHEEZING 08/23/2019 GERALD, KETAN E GARAGEMAN Ot F17.201 NICOTINE DEPENDENCE, UNSPECIFIED, IN REM 08/23/2019 MARYCHUY DUARTEINE Anmol GARAGEMAN Ot J44.9 CHRONIC OBSTRUCTIVE PULMONARY DISEASE, U 08/23/2019 GERALD, KETAN E GARAGEMAN Ot R05 COUGH 08/23/2019 MARYCHUY DUARTEINE E GARAGEMAN Ot R06.2 WHEEZING 08/23/2019 LULÚ MCKEON DO Ot F41. 9 ANXIETY DISORDER, UNSPECIFIED 08/23/2019 LULÚ MCKEON DO Ot J44. 9 CHRONIC OBSTRUCTIVE PULMONARY DISEASE, U 08/23/2019 LULÚ MCKEON DO Ot R06. 02 SHORTNESS OF BREATH 08/23/2019 LULÚ MCKEON DO Ot Z72. 0 TOBACCO USE 08/23/2019 DAPHNE YUSUF B2B MANAGED SERVICE SALES EXEC Ot D50.9 IRON DEFICIENCY ANEMIA, UNSPECIFIED 08/23/2019 JANEY ALFORD, GRETEL Brannon Ot D50.9 IRON DEFICIENCY ANEMIA, UNSPECIFIED 08/23/2019 JANEY ALFORD, GRETEL Brannon Ot D50.9 IRON DEFICIENCY ANEMIA, UNSPECIFIED 08/23/2019 JANEY ALFORD, GRETEL Brannon Ot Z01.818 ENCOUNTER FOR OTHER PREPROCEDURAL EXAMIN 08/23/2019 JESSICA ALFORD FACC, ALI FACP CCDS Ot D63.8 ANEMIA IN OTHER CHRONIC DISEASES CLASSIF 08/23/2019 JESSICA ALFORD [facility], ALI FACP CCDS Ot I47.1 SUPRAVENTRICULAR TACHYCARDIA 08/23/2019 JESSICA MD [facility], ALI FACP CCDS Ot 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 08/23/2019 JESSICA MD [facility], ALI FACP CCDS Ot M06.9 RHEUMATOID ARTHRITIS, UNSPECIFIED 08/23/2019 JESSICA [facility], ALI FACP CCDS Ot M79.89 OTHER SPECIFIED SOFT TISSUE DISORDERS 08/23/2019 JESSICA MD [facility], ALI FACP CCDS Ot R07.89 OTHER CHEST PAIN 08/23/2019 JESSICA MD [facility], ALI FACP CCDS Ot D63.8 ANEMIA IN OTHER CHRONIC DISEASES CLASSIF 08/23/2019 JESSICA MD [facility], ALI FACP CCDS Ot I47.1 SUPRAVENTRICULAR TACHYCARDIA 08/23/2019 JESSICA MD [facility], ALI FACP CCDS Ot 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 08/23/2019 JESSICA ALFORD [facility], ALI FACP CCDS Ot M06.9 RHEUMATOID ARTHRITIS, UNSPECIFIED 08/23/2019 JESSICA MD [facility], ALI FACP CCDS Ot M79.89 OTHER SPECIFIED SOFT TISSUE DISORDERS 08/23/2019 JESSICA ALFORD [facility], ALI FACP CCDS Ot R07.89 OTHER CHEST PAIN 08/23/2019 MARLENA HURTADO Ot E11.59 TYPE 2 DIABETES MELLITUS WITH OTH CIRCUL 08/23/2019 MARLENA HURTADO Ot F17.210 NICOTINE DEPENDENCE, CIGARETTES, UNCOMPL 08/23/2019 MARLENA HURTADO Ot F41.9 ANXIETY DISORDER, UNSPECIFIED 08/23/2019 MARLENA HURTADO Ot I47.1 SUPRAVENTRICULAR TACHYCARDIA 08/23/2019 MARLENA HURTADO Ot I65.23 OCCLUSION AND STENOSIS OF BILATERAL [place] 08/23/2019 MARLENA HURTADO Ot 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 08/23/2019 MARLENA HURTADO Ot I80.209 PHLBTS AND THOMBOPHLB OF UNSP DEEP VESSE 08/23/2019 MARLENA HURTADO Ot J44.9 CHRONIC OBSTRUCTIVE PULMONARY DISEASE, U 08/23/2019 MARLENA HURTADO Gloria Ot Z79.899 OTHER ASSISTED (CURRENT) DRUG THERAPY 08/23/2019 JANEY ALFORD, GRETEL Brannon Ot A04.7 ENTEROCOLITIS DUE TO CLOSTRIDIUM DIFFICI 08/23/2019 KETAN DUARTE APRN Ot R09.02 HYPOXEMIA 08/23/2019 KETAN DUARTE APRN Ot R91.1 SOLITARY PULMONARY NODULE 08/23/2019 KETAN DUARTE APRN Ot Z72.0 TOBACCO USE 08/23/2019 LULÚ MCKEON DO Ot F41. 9 ANXIETY DISORDER, UNSPECIFIED 08/23/2019 LULÚ MCKEON DO Ot J43. 8 OTHER EMPHYSEMA 08/23/2019 LULÚ MCKEON DO Ot R06. 02 SHORTNESS OF BREATH 08/23/2019 DAPHNE YUSUF [employer] Ot I70.0 ATHEROSCLEROSIS OF [place] 08/23/2019 DAPHNE YUSUF [employer] Ot I70.203 UNSP ATHSCL [place] ARTERIES OF EXTREMITI 08/23/2019 DAPHNE YUSUF [employer] EXEC Ot 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 PERFORATION OR AB 08/23/2019 ROMERO BOYER, ADELE Alcocer Ot R13.1 2 DYSPHAGIA, OROPHARYNGEAL PHASE 08/23/2019 JESSICA ALFORD FACC, ALI FACP CCDS Ot E11.9 TYPE 2 DIABETES MELLITUS WITHOUT COMPLIC 08/23/2019 JESSICA ALFORD FACC, ALI FACP CCDS Ot E66.9 OBESITY, UNSPECIFIED 08/23/2019 JESSICA ALFORD FACC, ALI FACP CCDS Ot I69.322 DYSARTHRIA FOLLOWING CEREBRAL INFARCTION 08/23/2019 JESSICA ALFORD FACC, ALI FACP CCDS Ot I69.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 CCD[facility] Ot Z79.01 ASSISTED (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 OF ANTICOAGULANT 08/23/2019 JESSICA ALFORD FACC, AUGIE FACP CCDS Ot Z79.82 ASSISTED (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 08/23/2019 JESSICA ALFORD FACC, ALI FACP CCDS Ot 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 08/23/2019 JESSICA ALFORD FACC, AUGIE FACP CCDS Ot Z86.718 PERSONAL HISTORY OF OTHER VENOUS THROMBO 08/23/2019 JESSICA ALFORD FACC, ALI FACP CCDS Ot Z87.891 PERSONAL HISTORY OF NICOTINE DEPENDENCE 08/23/2019 JESSICA GUALLPA, [facility] CCD[facility] Ot Z95.820 PERIPHERAL VASCULAR ANGIOPLASTY STATUS W 08/23/2019 MARJORIE EDUARDO [employer] EXEC Ot I08.1 RHEUMATIC DISORDERS OF BOTH MITRAL AND T 08/23/2019 MARJORIE EDUARDO [employer] EXEC Ot I48.3 TYPICAL ATRIAL FLUTTER 08/23/2019 DAPHNE YUSUF [employer] EXEC Ot R59.0 LOCALIZED ENLARGED LYMPH NODES 08/23/2019 DAPHNE YUSUF [employer] EXEC Ot Z85.819 PRSNL HX OF [facility]IG [facility] S[facility] 08/23/2019 DAPHNE YUSUF [employer] EXEC Ot Z98.890 OTHER SPECIFIED POSTPROCEDURAL STATES 08/23/2019 DAPHNE YUSUF [employer] EXEC Ot R59.0 LOCALIZED ENLARGED LYMPH NODES 08/23/2019 DAPHNE YUSUF [employer]EC Ot Z98.890 OTHER SPECIFIED POSTPROCEDURAL STATES 08/23/2019 KETAN DUARTE APRN Ot G47.36 SLEEP RELATED HYPOVENTILATION IN CONDITI 08/23/2019 KETAN DUARTE APRN Ot I25.10 ATHSCL HEART DISEASE OF [place] CORONARY 08/23/2019 KETAN DUARTE APRN Ot J30.9 ALLERGIC RHINITIS, UNSPECIFIED 08/23/2019 KETAN DUARTE APRN Ot J44.9 CHRONIC OBSTRUCTIVE PULMONARY DISEASE, U 08/23/2019 KETAN DUARTE APRN Ot K80.20 CALCULUS OF GALLBLADDER W/O CHOLECYSTITI 08/23/2019 KETAN DUARTE APRN Ot R91.8 OTHER NONSPECIFIC ABNORMAL FINDING OF [place] 08/23/2019 KETAN DUARTE APRN Ot Z72.0 TOBACCO USE 08/23/2019 YURIMARJORIE KOLB MANDY Ot I48.92 UNSPECIFIED ATRIAL FLUTTER 08/23/2019 MARCUS MONACO MD Ot 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 08/23/2019 MARCUS MONACO MD Ot 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, ORAL 08/23/2019 MARCUS MONACO MD Ot F32.9 MAJOR DEPRESSIVE DISORDER, SINGLE EPISOD 08/23/2019 MARCUS MONACO MD Ot F41.9 ANXIETY DISORDER, UNSPECIFIED 08/23/2019 MARCUS MONACO MD Ot I47.1 SUPRAVENTRICULAR TACHYCARDIA 08/23/2019 MARCUS MONACO MD Ot I80.209 PHLBTS AND THOMBOPHLB OF UNSP DEEP VESSE 08/23/2019 MARCUS MONACO MD Ot K59.00 CONSTIPATION, UNSPECIFIED 08/23/2019 MARCUS MONACO MD Ot M19.90 UNSPECIFIED OSTEOARTHRITIS, UNSPECIFIED 08/23/2019 MARCUS MONACO MD Ot T85.848 A PAIN DUE TO OTHER INTERNAL PROSTH DEV/GR 08/23/2019 MARCUS MONACO MD Ot Z51.11 ENCOUNTER FOR ANTINEOPLASTIC CHEMOTHERAP 08/23/2019 MARCUS MONACO MD Ot Z80.9 FAMILY HISTORY OF MALIGNANT NEOPLASM, UN 08/23/2019 MARCUS MONACO MD Ot Z89.432 ACQUIRED ABSENCE OF LEFT FOOT 08/23/2019 MARCUS MONACO MD Ot Z93.1 GASTROSTOMY STATUS 08/23/2019 MARCUS MONACO MD Ot Z95.5 PRESENCE OF CORONARY ANGIOPLASTY IMPLANT 08/23/2019 MARCUS MONACO MD Ot Z95.828 PRESENCE OF OTHER VASCULAR IMPLANTS AND 08/23/2019 MARCUS MONACO MD Ot Z96.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 08/23/2019 MARCUS MONACO MD Ot Z98.890 OTHER SPECIFIED POSTPROCEDURAL STATES 08/23/2019 DAPHNE YUSUF Ot I73.9 PERIPHERAL VASCULAR DISEASE, UNSPECIFIED 08/23/2019 NAM GASPAR Ot R06.02 SHORTNESS OF BREATH 08/23/2019 NAM GASPAR Ot R60.9 EDEMA, UNSPECIFIED 08/23/2019 JESSICA ALFORD FACC, ALI FACP CCDS Ot R06.02 SHORTNESS OF BREATH 08/23/2019 GERALD, KETAN E GARAGEMAN Ot G47.9 SLEEP DISORDER, UNSPECIFIED 08/23/2019 GERADL, KETAN E GARAGEMAN Ot J44.9 CHRONIC OBSTRUCTIVE PULMONARY DISEASE, U 08/23/2019 GERALD, KETAN E GARAGEMAN Ot R05 COUGH 08/23/2019 GERALD, KETAN E GARAGEMAN Ot R06.2 WHEEZING 08/23/2019 GERALD, KETAN E GARAGEMAN Ot F17.201 NICOTINE DEPENDENCE, UNSPECIFIED, IN REM 08/23/2019 GERALD KETAN E GARAGEMAN Ot J44.9 CHRONIC OBSTRUCTIVE PULMONARY DISEASE, U 08/23/2019 GERALD KETAN E GARAGEMAN Ot R05 COUGH 08/23/2019 GERALD, KETAN E GARAGEMAN Ot R06.2 WHEEZING 08/23/2019 LULÚ MCKEON DO Ot F41. 9 ANXIETY DISORDER, UNSPECIFIED 08/23/2019 LULÚ MCKEON DO Ot J44. 9 CHRONIC OBSTRUCTIVE PULMONARY DISEASE, U 08/23/2019 LULÚ MCKEON DO Ot R06. 02 SHORTNESS OF BREATH 08/23/2019 LULÚ MCKEON DO Ot Z72. 0 TOBACCO USE 08/23/2019 DAPHNE YUSUF Ot D50.9 IRON DEFICIENCY ANEMIA, UNSPECIFIED 08/23/2019 JANEY ALFORD, GRETEL Brannon Ot D50.9 IRON DEFICIENCY ANEMIA, UNSPECIFIED 08/23/2019 JANEY ALFORD, GRETEL Brannon Ot D50.9 IRON DEFICIENCY ANEMIA, UNSPECIFIED 08/23/2019 JANEY ALFORD, GRETEL Brannon Ot Z01.818 ENCOUNTER FOR OTHER PREPROCEDURAL EXAMIN 08/23/2019 JESSICA ALFORD FACC, ALI FACP CCDS Ot D63.8 ANEMIA IN OTHER CHRONIC DISEASES CLASSIF 08/23/2019 JESSICA ALFORD FACC, ALI FACP CCDS Ot I47.1 SUPRAVENTRICULAR TACHYCARDIA 08/23/2019 JESSICA ALFORD FACC, ALI FACP CCDS Ot 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 08/23/2019 JESSICA ALFORD FACC, ALI FACP CCDS Ot M06.9 RHEUMATOID ARTHRITIS, UNSPECIFIED 08/23/2019 JESSICA ALFORD FACC, ALI FACP CCDS Ot M79.89 OTHER SPECIFIED SOFT TISSUE DISORDERS 08/23/2019 JESSICA ALFORD [facility], ALI FACP CCDS Ot R07.89 OTHER CHEST PAIN 08/23/2019 JESSICA ALFORD [facility], ALI FACP CCDS Ot D63.8 ANEMIA IN OTHER CHRONIC DISEASES CLASSIF 08/23/2019 JESSICA ALFORD [facility], ALI FACP CCDS Ot I47.1 SUPRAVENTRICULAR TACHYCARDIA 08/23/2019 JESSICA ALFORD [facility], ALI FACP CCDS Ot 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 08/23/2019 JESSICA ALFORD [facility], ALI FACP CCDS Ot M06.9 RHEUMATOID ARTHRITIS, UNSPECIFIED 08/23/2019 JESSICA ALFORD [facility], ALI FACP CCDS Ot M79.89 OTHER SPECIFIED SOFT TISSUE DISORDERS 08/23/2019 JESSICA ALFORD [facility], ALI FACP CCDS Ot R07.89 OTHER CHEST PAIN 08/23/2019 MARLENA HURTADO Ot E11.59 TYPE 2 DIABETES MELLITUS WITH OTH CIRCUL 08/23/2019 MARLENA HURTADO Ot F17.210 NICOTINE DEPENDENCE, CIGARETTES, UNCOMPL 08/23/2019 MARLENA HURTADO Ot F41.9 ANXIETY DISORDER, UNSPECIFIED 08/23/2019 MARLENA HURTADO Ot I47.1 SUPRAVENTRICULAR TACHYCARDIA 08/23/2019 MARLENA HURTADO Ot I65.23 OCCLUSION AND STENOSIS OF BILATERAL HERNANDEZ 08/23/2019 MARLENA HURTADO Ot 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 08/23/2019 MARLENA HURTADO Ot I80.209 PHLBTS AND THOMBOPHLB OF UNSP DEEP VESSE 08/23/2019 MARLENA HURTADO Ot J44.9 CHRONIC OBSTRUCTIVE PULMONARY DISEASE, U 08/23/2019 MARLENA HURTADO Ot Z79.899 OTHER ASSISTED (CURRENT) DRUG THERAPY 08/26/2019 DAPHNE YUSUF [employer] SAL[employer] EXEC Ot I73.9 PERIPHERAL VASCULAR DISEASE, UNSPECIFIED 08/26/2019 NAM GASPAR [employer] Ot R06.02 SHORTNESS OF BREATH 08/26/2019 NAM GASPAR [employer]EC Ot R60.9 EDEMA, UNSPECIFIED 08/26/2019 JESSICA GUALLPA, ALI FACP CCDS Ot R06.02 SHORTNESS OF BREATH 08/26/2019 GERALD, KETAN E GARAGEMAN Ot G47.9 SLEEP DISORDER, UNSPECIFIED 08/26/2019 GERALD, KETAN E GARAGEMAN Ot J44.9 CHRONIC OBSTRUCTIVE PULMONARY DISEASE, U 08/26/2019 GERALD, KETAN E GARAGEMAN Ot R05 COUGH 08/26/2019 GERALD, KETAN E GARAGEMAN Ot R06.2 WHEEZING 08/26/2019 GERALD, KETAN E GARAGEMAN Ot F17.201 NICOTINE DEPENDENCE, UNSPECIFIED, IN REM 08/26/2019 GERALD KETAN E GARAGEMAN Ot J44.9 CHRONIC OBSTRUCTIVE PULMONARY DISEASE, U 08/26/2019 GERALD KETAN E GARAGEMAN Ot R05 COUGH 08/26/2019 GERALD KETAN E GARAGEMAN Ot R06.2 WHEEZING 08/26/2019 LULÚ MCKEON DO Ot F41. 9 ANXIETY DISORDER, UNSPECIFIED 08/26/2019 LULÚ MCKEON DO Ot J44. 9 CHRONIC OBSTRUCTIVE PULMONARY DISEASE, U 08/26/2019 LULÚ MCKEON DO Ot R06. 02 SHORTNESS OF BREATH 08/26/2019 LULÚ MCKEON DO Ot Z72. 0 TOBACCO USE 08/26/2019 DAPHNE YUSUF Ot D50.9 IRON DEFICIENCY ANEMIA, UNSPECIFIED 08/26/2019 JANEY ALFORD, GRETEL Brannon Ot D50.9 IRON DEFICIENCY ANEMIA, UNSPECIFIED 08/26/2019 JANEY ALFORD, GRETEL Brannon Ot D50.9 IRON DEFICIENCY ANEMIA, UNSPECIFIED 08/26/2019 JANEY ALFORD, GRETEL Brannon Ot Z01.818 ENCOUNTER FOR OTHER PREPROCEDURAL EXAMIN 08/26/2019 JESSICA ALFORD FACJude, ALI FACP CCDS Ot D63.8 ANEMIA IN OTHER CHRONIC DISEASES CLASSIF 08/26/2019 JESSICA ALFORD FACC, ALI FACP CCDS Ot I47.1 SUPRAVENTRICULAR TACHYCARDIA 08/26/2019 JESSICA ALFORD FACC, ALI FACP CCDS Ot 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 08/26/2019 JESSICA ALFORD FACC, ALI FACP CCDS Ot M06.9 RHEUMATOID ARTHRITIS, UNSPECIFIED 08/26/2019 JESSICA ALFORD FACC, ALI FACP CCDS Ot M79.89 OTHER SPECIFIED SOFT TISSUE DISORDERS 08/26/2019 JESSICA ALFORD FACC, ALI FACP CCDS Ot R07.89 OTHER CHEST PAIN 08/26/2019 JESSICA ALFORD [facility], ALI FACP CCDS Ot D63.8 ANEMIA IN OTHER CHRONIC DISEASES CLASSIF 08/26/2019 JESSICA ALFORD [facility], ALI FACP CCDS Ot I47.1 SUPRAVENTRICULAR TACHYCARDIA 08/26/2019 JESSICA ALFORD [facility], ALI FACP CCDS Ot 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 08/26/2019 JESSICA ALFORD [facility], ALI FACP CCDS Ot M06.9 RHEUMATOID ARTHRITIS, UNSPECIFIED 08/26/2019 JESSICA ALFORD [facility], ALI FACP CCDS Ot M79.89 OTHER SPECIFIED SOFT TISSUE DISORDERS 08/26/2019 JESSICA ALFORD [facility], ALI FACP CCDS Ot R07.89 OTHER CHEST PAIN 08/26/2019 MARLENA HURTADO Ot E11.59 TYPE 2 DIABETES MELLITUS WITH OTH CIRCUL 08/26/2019 MARLENA HURTADO Ot F17.210 NICOTINE DEPENDENCE, CIGARETTES, UNCOMPL 08/26/2019 MARLENA HURTADO Ot F41.9 ANXIETY DISORDER, UNSPECIFIED 08/26/2019 MARLENA HURTADO Ot I47.1 SUPRAVENTRICULAR TACHYCARDIA 08/26/2019 MARLENA HURTADO Ot I65.23 OCCLUSION AND STENOSIS OF BILATERAL HER[place]NDE[place] 08/26/2019 MARLENA HURTADO Ot 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 08/26/2019 MARLENA HURTADO Ot I80.209 PHLBTS AND THOMBOPHLB OF UNSP DEEP VESSE 08/26/2019 MARLENA HURTADO Ot J44.9 CHRONIC OBSTRUCTIVE PULMONARY DISEASE, U 08/26/2019 MARLENA HURTADO Ot Z79.899 OTHER ASSISTED (CURRENT) DRUG THERAPY 08/26/2019 JANEY ALFORD, GRETEL Brannon Ot A04.7 ENTEROCOLITIS DUE TO CLOSTRIDIUM DIFFICI 08/26/2019 KETAN DUARTE APRN Ot R09.02 HYPOXEMIA 08/26/2019 KETAN DUARTE APRN Ot R91.1 SOLITARY PULMONARY NODULE 08/26/2019 KETAN DUARTE APRN Ot Z72.0 TOBACCO USE 08/26/2019 LULÚ MCKEON DO, Ot F41. 9 ANXIETY DISORDER, UNSPECIFIED 08/26/2019 MIKE DO, LULÚ M Ot J43. 8 OTHER EMPHYSEMA 08/26/2019 MIKELULÚ DUKES DO Ot R06. 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 08/26/2019 ADELE ANN Ot R13.1 2 DYSPHAGIA, OROPHARYNGEAL PHASE 08/26/2019 JESSICA ALFORD FACC, ALI FACP CCDS Ot E11.9 TYPE 2 DIABETES MELLITUS WITHOUT COMPLIC 08/26/2019 JESSICA ALFORD FACC, ALI FACP CCDS Ot E66.9 OBESITY, UNSPECIFIED 08/26/2019 JESSICA ALFORD FACC, ALI FACP CCDS Ot I69.322 DYSARTHRIA FOLLOWING CEREBRAL INFARCTION 08/26/2019 JESSICA ALFORD FACC, ALI FACP CCDS Ot I69.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 FOLLOWING CEREBRAL INFRC AFF RI 08/26/2019 JESSICA ALFORD FACC, ALI FACP CCDS Ot I73.9 PERIPHERAL VASCULAR DISEASE, UNSPECIFIED 08/26/2019 JESSICA ALFORD FACC, ALI FACP CCDS Ot J44.9 CHRONIC OBSTRUCTIVE PULMONARY DISEASE, U 08/26/2019 JESSICA ALFORD FACC, ALI FACP CCDS Ot R00.2 PALPITATIONS 08/26/2019 JESSICA ALFORD FACC, ALI FACP CCDS Ot Z68.31 BODY MASS INDEX (BMI) 31.0-31.9, ADULT 08/26/2019 JESSICA ALFORD FACC, ALI FACP CCDS Ot Z79.01 SOCIAL SERVICES COUNSELOR (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 OF ANTICOAGULANT 08/26/2019 JESSICA ALFORD FACC, ALI FACP CCDS Ot Z79.82 ASSISTED (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 08/26/2019 EJSSICA ALFORD FACC, ALI FACP CCDS Ot 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 08/26/2019 JESSICA ALFORD FACC, ALI FACP CCDS Ot Z86.718 PERSONAL HISTORY OF OTHER VENOUS THROMBO 08/26/2019 JESSICA ALFORD FACC, ALI FACP CCDS Ot Z87.891 PERSONAL HISTORY OF NICOTINE DEPENDENCE 08/26/2019 JESSICA GUALLPA, AUGIE FAC CCDS Ot Z95.820 PERIPHERAL VASCULAR ANGIOPLASTY STATUS W 08/26/2019 MARJORIE EDUARDO [employer] MA[employer] SERV[employer] SAL[employer] EXEC Ot I08.1 RHEUMATIC DISORDERS OF BOTH MITRAL AND T 08/26/2019 MARJORIE EDUARDO [employer] MANA[employer]ED [employer] SALES EXEC Ot I48.3 TYPICAL ATRIAL FLUTTER 08/26/2019 DAPHNE YUSUF [employer] MANA[employer]ED SERV[employer] SALES EXEC Ot R59.0 LOCALIZED ENLARGED LYMPH NODES 08/26/2019 DAPHNE YUSUF [employer] EXEC Ot Z85.819 PRSNL HX OF MALIG NEOPLM OF UNSP SITE LI 08/26/2019 PILI YUSUFA [employer] MANA[employer]ED SERV[employer] SAL[employer] EXEC Ot Z98.890 OTHER SPECIFIED POSTPROCEDURAL STATES 08/26/2019 PILI YUSUFA [employer] MANA[employer] SERV[employer] SALES EXEC Ot R59.0 LOCALIZED ENLARGED LYMPH NODES 08/26/2019 MADELIN DAPHNE [employer]2B MANA[employer]ED SERVICE SALES EXEC Ot Z98.890 OTHER SPECIFIED POSTPROCEDURAL STATES 08/26/2019 KETAN DUARTE GARAGEMAN Ot G47.36 SLEEP RELATED HYPOVENTILATION IN CONDITI 08/26/2019 KETAN DUARTE GARAGEMAN Ot I25.10 ATHSCL HEART DISEASE OF [place] CORONARY 08/26/2019 KETAN DUARTE GARAGEMAN Ot J30.9 ALLERGIC RHINITIS, UNSPECIFIED 08/26/2019 KETAN DUARTE GARAGEMAN Ot J44.9 CHRONIC OBSTRUCTIVE PULMONARY DISEASE, U 08/26/2019 KETAN DUARTE GARAGEMAN Ot K80.20 CALCULUS OF GALLBLADDER W/O CHOLECYSTITI 08/26/2019 KETAN DUARTE GARAGEMAN Ot R91.8 OTHER NONSPECIFIC ABNORMAL FINDING OF [place] 08/26/2019 KETAN DUARTE GARAGEMAN Ot Z72.0 TOBACCO USE 08/26/2019 MARJORIE EDUARDO B2B MA[employer]ED SERV[employer] SAL[employer] EXEC Ot I48.92 UNSPECIFIED ATRIAL FLUTTER 08/26/2019 MARCUS MONACO MD Ot 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 08/26/2019 MARCUS MONACO MD Ot 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, ORAL 08/26/2019 MARCUS MONACO MD Ot F32.9 MAJOR DEPRESSIVE DISORDER, SINGLE EPISOD 08/26/2019 MARCUS MONACO MD Ot F41.9 ANXIETY DISORDER, UNSPECIFIED 08/26/2019 MARCUS MONACO MD Ot I47.1 SUPRAVENTRICULAR TACHYCARDIA 08/26/2019 MARCUS MONACO MD Ot I80.209 PHLBTS AND THOMBOPHLB OF UNSP DEEP VESSE 08/26/2019 MARCUS MONACO MD Ot K59.00 CONSTIPATION, UNSPECIFIED 08/26/2019 MARCUS MONACO MD Ot M19.90 UNSPECIFIED OSTEOARTHRITIS, UNSPECIFIED 08/26/2019 MARCUS MONACO MD Ot T85.848 A PAIN DUE TO OTHER INTERNAL PROSTH DEV/GR 08/26/2019 MARCUS MONACO MD Ot Z51.11 ENCOUNTER FOR ANTINEOPLASTIC CHEMOTHERAP 08/26/2019 MARCUS MONACO MD Ot Z80.9 FAMILY HISTORY OF MALIGNANT NEOPLASM, UN 08/26/2019 MARCUS MONACO MD Ot Z89.432 ACQUIRED ABSENCE OF LEFT FOOT 08/26/2019 MARCUS MONACO MD Ot Z93.1 GASTROSTOMY STATUS 08/26/2019 MARCUS MONACO MD Ot Z95.5 PRESENCE OF CORONARY ANGIOPLASTY IMPLANT 08/26/2019 MARCUS MONACO MD Ot Z95.828 PRESENCE OF OTHER VASCULAR IMPLANTS AND 08/26/2019 MARCUS MONACO MD Ot Z96.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 08/26/2019 MARCUS MONACO MD Ot Z98.890 OTHER SPECIFIED POSTPROCEDURAL STATES 08/30/2019 MARCUS MONACO MD Ot 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 08/30/2019 MARCUS MONACO MD Ot 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, ORAL 08/30/2019 MARCUS MONACO MD Ot F32.9 MAJOR DEPRESSIVE DISORDER, SINGLE EPISOD 08/30/2019 MARCUS MONACO MD Ot F41.9 ANXIETY DISORDER, UNSPECIFIED 08/30/2019 MARCUS MONACO MD Ot I47.1 SUPRAVENTRICULAR TACHYCARDIA 08/30/2019 MARCUS MONACO MD Ot I80.209 PHLBTS AND THOMBOPHLB OF UNSP DEEP VESSE 08/30/2019 MARCUS MONACO MD Ot K59.00 CONSTIPATION, UNSPECIFIED 08/30/2019 MARCUS MONACO MD Ot M19.90 UNSPECIFIED OSTEOARTHRITIS, UNSPECIFIED 08/30/2019 MARCUS MONACO MD Ot T85.848 A PAIN DUE TO OTHER INTERNAL PROSTH DEV/GR 08/30/2019 MARCUS MONACO MD Ot Z51.11 ENCOUNTER FOR ANTINEOPLASTIC CHEMOTHERAP 08/30/2019 MARCUS MONACO MD Ot Z80.9 FAMILY HISTORY OF MALIGNANT NEOPLASM, UN 08/30/2019 MARCUS MONACO MD Ot Z89.432 ACQUIRED ABSENCE OF LEFT FOOT 08/30/2019 MARCUS MONACO MD Ot Z93.1 GASTROSTOMY STATUS 08/30/2019 MARCUS MONACO MD Ot Z95.5 PRESENCE OF CORONARY ANGIOPLASTY IMPLANT 08/30/2019 MARCUS MONACO MD Ot Z95.828 PRESENCE OF OTHER VASCULAR IMPLANTS AND 08/30/2019 MARCUS MONACO MD, Ot Z96.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 08/30/2019 MARCUS MONACO MD, Ot Z98.890 OTHER SPECIFIED POSTPROCEDURAL STATES 09/05/2019 DAPHNE YUSUF Ot I73.9 PERIPHERAL VASCULAR DISEASE, UNSPECIFIED 09/05/2019 NAM GASPAR B2B MANAGED SERVICE SALES EXEC Ot R06.02 SHORTNESS OF BREATH 09/05/2019 NAM GASPAR [employer] MANAGED SERVICE SALES EXEC Ot R60.9 EDEMA, UNSPECIFIED 09/05/2019 JESSICA ALFORD FAC, AUGIE ELI CCDS Ot R06.02 SHORTNESS OF BREATH 09/05/2019 KETAN DUARTE GARAGEMAN Ot G47.9 SLEEP DISORDER, UNSPECIFIED 09/05/2019 MARYCHUY DUARTEINE E GARAGEMAN Ot J44.9 CHRONIC OBSTRUCTIVE PULMONARY DISEASE, U 09/05/2019 GERALD KETAN E GARAGEMAN Ot R05 COUGH 09/05/2019 GERALD KETAN E GARAGEMAN Ot R06.2 WHEEZING 09/05/2019 GERALD KETAN E GARAGEMAN Ot F17.201 NICOTINE DEPENDENCE, UNSPECIFIED, IN REM 09/05/2019 MARYCHUY DUARTEINE Anmol GARAGEMAN Ot J44.9 CHRONIC OBSTRUCTIVE PULMONARY DISEASE, U 09/05/2019 MARYCHUY DUARTEINE E GARAGEMAN Ot R05 COUGH 09/05/2019 GERALD KETAN E GARAGEMAN Ot R06.2 WHEEZING 09/05/2019 LULÚ MCKEON DO Ot F41. 9 ANXIETY DISORDER, UNSPECIFIED 09/05/2019 LULÚ MCKEON DO Ot J44. 9 CHRONIC OBSTRUCTIVE PULMONARY DISEASE, U 09/05/2019 LULÚ MCKEON DO Ot R06. 02 SHORTNESS OF BREATH 09/05/2019 LULÚ MCKEON DO Ot Z72. 0 TOBACCO USE 09/05/2019 DAPHNE YUSUF Ot D50.9 IRON DEFICIENCY ANEMIA, UNSPECIFIED 09/05/2019 JANEY ALFORD, GRETEL Brannon Ot D50.9 IRON DEFICIENCY ANEMIA, UNSPECIFIED 09/05/2019 JANEY ALFORD, GRETEL Brannon Ot D50.9 IRON DEFICIENCY ANEMIA, UNSPECIFIED 09/05/2019 JANEY ALFORD, GERTEL Brannon Ot Z01.818 ENCOUNTER FOR OTHER PREPROCEDURAL EXAMIN 09/05/2019 JESSICA ALFORD FACC, ALI FACP CCDS Ot D63.8 ANEMIA IN OTHER CHRONIC DISEASES CLASSIF 09/05/2019 JESSICA ALFORD FACC, ALI FACP CCDS Ot I47.1 SUPRAVENTRICULAR TACHYCARDIA 09/05/2019 JESSICA ALFORD FACC, ALI FACP CCDS Ot 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 09/05/2019 JESSICA ALFORD FACC, ALI FACP CCDS Ot M06.9 RHEUMATOID ARTHRITIS, UNSPECIFIED 09/05/2019 JESSICA ALFORD FACC, ALI FACP CCDS Ot M79.89 OTHER SPECIFIED SOFT TISSUE DISORDERS 09/05/2019 JESSICA ALFORD FACC, ALI FACP CCDS Ot R07.89 OTHER CHEST PAIN 09/05/2019 JESSICA ALFODR FACC, ALI FACP CCDS Ot D63.8 ANEMIA IN OTHER CHRONIC DISEASES CLASSIF 09/05/2019 JESSICA ALFORD FACC, ALI FACP CCDS Ot I47.1 SUPRAVENTRICULAR TACHYCARDIA 09/05/2019 JESSICA ALFORD FACC, ALI FACP CCDS Ot 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 09/05/2019 JESSICA ALFORD FACC, ALI FACP CCDS Ot M06.9 RHEUMATOID ARTHRITIS, UNSPECIFIED 09/05/2019 JESSICA ALFORD FACC, ALI FACP CCDS Ot M79.89 OTHER SPECIFIED SOFT TISSUE DISORDERS 09/05/2019 JESSICA ALFORD FACC, ALI FACP CCDS Ot R07.89 OTHER CHEST PAIN 09/05/2019 MARLENA HURTADO Ot E11.59 TYPE 2 DIABETES MELLITUS WITH OTH CIRCUL 09/05/2019 MARLENA HURTADO Ot F17.210 NICOTINE DEPENDENCE, CIGARETTES, UNCOMPL 09/05/2019 MARLENA HURTADO Ot F41.9 ANXIETY DISORDER, UNSPECIFIED 09/05/2019 MARLENA HURTADO Ot I47.1 SUPRAVENTRICULAR TACHYCARDIA 09/05/2019 MARLENA HURTADO Ot I65.23 OCCLUSION AND STENOSIS OF BILATERAL [place]DE[place] 09/05/2019 MARLENA HURTADO Ot 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 09/05/2019 MARLENA HURTADO Gloria Ot I80.209 PHLBTS AND THOMBOPHLB OF UNSP DEEP VESSE 09/05/2019 MARLENA HURTADO Gloria Ot J44.9 CHRONIC OBSTRUCTIVE PULMONARY DISEASE, U 09/05/2019 MARLENA HURTADO Gloria Ot 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 09/05/2019 JANEY ALFORD, GRETEL Brannon Ot A04.7 ENTEROCOLITIS DUE TO CLOSTRIDIUM DIFFICI 09/05/2019 KETAN DUARTE APRN Ot R09.02 HYPOXEMIA 09/05/2019 KETAN DUARTE APRN Ot R91.1 SOLITARY PULMONARY NODULE 09/05/2019 KETAN DUARTE APRN Ot Z72.0 TOBACCO USE 09/05/2019 LULÚ MCKEON DO Ot F41. 9 ANXIETY DISORDER, UNSPECIFIED 09/05/2019 LULÚ MCKEON DO Ot J43. 8 OTHER EMPHYSEMA 09/05/2019 LULÚ MCKEON DO Ot R06. 02 SHORTNESS OF BREATH 09/05/2019 DAPHNE YUSUF Ot I70.0 ATHEROSCLEROSIS OF [place] 09/05/2019 DAPHNE YUSUF Ot I70.203 UNSP ATHSCL [place] ARTERIES OF EXTREMITI 09/05/2019 DAPHNE YUSUF Ot 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 PERFORATION OR AB 09/05/2019 ADELE ANN Ot R13.1 2 DYSPHAGIA, OROPHARYNGEAL PHASE 09/05/2019 JESSICA ALFORD FACC, AUGIE FACP CCDS Ot E11.9 TYPE 2 DIABETES MELLITUS WITHOUT COMPLIC 09/05/2019 JESSICA ALFORD FACC, AUGIE FACP CCDS Ot E66.9 OBESITY, UNSPECIFIED 09/05/2019 JESSICA ALFORD FACC, AUGIE FACP CCDS Ot I69.322 DYSARTHRIA FOLLOWING CEREBRAL INFARCTION 09/05/2019 JESSICA ALFORD FACC, AUGIE FACP CCDS Ot I69.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 FOLLOWING CEREBRAL INFRC AFF RI 09/05/2019 JESSICA ALFORD FACC, ALI FACP CCDS Ot I73.9 PERIPHERAL VASCULAR DISEASE, UNSPECIFIED 09/05/[address] [facility]I FACP CCDS Ot J44.9 CHRONIC OBSTRUCTIVE PULMONARY DISEASE, U 09/05/2019 JESSICA ALFORD [facility], ALI FACP CCDS Ot R00.2 PALPITATIONS 09/05/2019 JESSICA ALFORD [facility], ALI FACP CCDS Ot Z68.31 BODY MASS INDEX (BMI) 31.0-31.9, ADULT 09/05/2019 JESSICA ALFORD [facility], ALI FACP CCDS Ot Z79.01 SOCIAL SERVICES COUNSELOR (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 OF ANTICOAGULANT 09/05/2019 JESSICA ALFORD [facility], ALI FACP CCDS Ot Z79.82 SOCIAL SERVICES COUNSELOR (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 09/05/2019 JESSICA ALFROD [facility], ALI FACP CCDS Ot 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 09/05/2019 JESSICA ALFORD [facility], ALI FACP CCDS Ot Z86.718 PERSONAL HISTORY OF OTHER VENOUS THROMBO 09/05/2019 JESSICA ALFORD [facility], ALI FACP CCDS Ot Z87.891 PERSONAL HISTORY OF NICOTINE DEPENDENCE 09/05/2019 JESSICA ALFORD [facility], ALI FACP CCDS Ot Z95.820 PERIPHERAL VASCULAR ANGIOPLASTY STATUS W 09/05/2019 MARJORIE EDUARDO B2B MANAGED SERVICE SALES EXEC Ot I08.1 RHEUMATIC DISORDERS OF BOTH MITRAL AND T 09/05/2019 MARJORIE EDUARDO B2B MANAGED SERVICE [employer] EXEC Ot I48.3 TYPICAL ATRIAL FLUTTER 09/05/2019 DAPHNE YUSUF [employer] EXEC Ot R59.0 LOCALIZED ENLARGED LYMPH NODES 09/05/2019 DAPHNE YUSUF [employer] EXEC Ot Z85.819 PRSNL HX OF MALIG NEOPLM OF [facility] SITE LI 09/05/2019 DAPHNE YUSUF [employer] EXEC Ot Z98.890 OTHER SPECIFIED POSTPROCEDURAL STATES 09/05/2019 DAPHNE YUSUF [employer] EXEC Ot R59.0 LOCALIZED ENLARGED LYMPH NODES 09/05/2019 DAPHNE YUSUF [employer] EXEC Ot Z98.890 OTHER SPECIFIED POSTPROCEDURAL STATES 09/05/2019 KETAN DUARTE APRN Ot G47.36 SLEEP RELATED HYPOVENTILATION IN CONDITI 09/05/2019 KETAN DUARTE APRN Ot I25.10 ATHSCL HEART DISEASE OF [place] CORONARY 09/05/2019 KETAN DUARTE APRN Ot J30.9 ALLERGIC RHINITIS, UNSPECIFIED 09/05/2019 KETAN DUARTE APRN Ot J44.9 CHRONIC OBSTRUCTIVE PULMONARY DISEASE, U 09/05/2019 KETAN DUARTE APRN Ot K80.20 CALCULUS OF GALLBLADDER W/O CHOLECYSTITI 09/05/2019 KETAN DUARTE APRN Ot R91.8 OTHER NONSPECIFIC ABNORMAL FINDING OF [place] 09/05/2019 KETAN DUARTE APRN Ot Z72.0 TOBACCO USE 09/05/2019 ALESHA MARJORIE Carlyn [employer] EXEC Ot I48.92 UNSPECIFIED ATRIAL FLUTTER 09/05/2019 MARCUS MONACO MD Ot 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 09/05/2019 MARCUS MONACO MD Ot 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, ORAL 09/05/2019 MARCUS MONACO MD Ot F32.9 MAJOR DEPRESSIVE DISORDER, SINGLE EPISOD 09/05/2019 MARCUS MONACO MD Ot F41.9 ANXIETY DISORDER, UNSPECIFIED 09/05/2019 MARCUS MONACO MD Ot I47.1 SUPRAVENTRICULAR TACHYCARDIA 09/05/2019 MARCUS MONACO MD Ot I80.209 PHLBTS AND THOMBOPHLB OF UNSP DEEP VESSE 09/05/2019 MARCUS MONACO MD Ot K59.00 CONSTIPATION, UNSPECIFIED 09/05/2019 MARCUS MONACO MD Ot M19.90 UNSPECIFIED OSTEOARTHRITIS, UNSPECIFIED 09/05/2019 MARCUS MONACO MD Ot T85.848 A PAIN DUE TO OTHER INTERNAL PROSTH DEV/GR 09/05/2019 MARCUS MONACO MD Ot Z51.11 ENCOUNTER FOR ANTINEOPLASTIC CHEMOTHERAP 09/05/2019 MARCUS MONACO MD Ot Z80.9 FAMILY HISTORY OF MALIGNANT NEOPLASM, UN 09/05/2019 MARCUS MONACO MD Ot Z89.432 ACQUIRED ABSENCE OF LEFT FOOT 09/05/2019 MARCUS MONACO MD Ot Z93.1 GASTROSTOMY STATUS 09/05/2019 MARCUS MONACO MD Ot Z95.5 PRESENCE OF CORONARY ANGIOPLASTY IMPLANT 09/05/2019 MARCUS MONACO MD Ot Z95.828 PRESENCE OF OTHER VASCULAR IMPLANTS AND 09/05/2019 MARCUS MONACO MD Ot Z96.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 09/05/2019 MARCUS MONACO MD Ot Z98.890 OTHER SPECIFIED POSTPROCEDURAL STATES 09/07/2019 MARCUS MONACO MD Ot 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 09/07/2019 MARCUS MONACO MD Ot K80.20 CALCULUS OF GALLBLADDER W/O CHOLECYSTITI 09/21/2019 MARCUS MONACO MD Ot R56.9 UNSPECIFIED CONVULSIONS 09/21/2019 MARCUS MONACO MD, Ot Z85.818 PRSNL HX OF MALIG NEOPLM OF SITE OF LIP, 09/21/2019 MARCUS MONACO MD, Ot R56.9 UNSPECIFIED CONVULSIONS 09/21/2019 MARCUS MONACO MD, Ot Z85.818 PRSNL HX OF MALIG NEOPLM OF SITE OF LIP, 10/12/2019 MARCUS MONACO MD, Ot 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 10/12/2019 MARCUS MONACO MD Ot 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, ORAL 10/12/2019 MARCUS MONACO MD Ot F32.9 MAJOR DEPRESSIVE DISORDER, SINGLE EPISOD 10/12/2019 MARCUS MONACO MD, Ot F41.9 ANXIETY DISORDER, UNSPECIFIED 10/12/2019 MARCUS MONACO MD Ot I47.1 SUPRAVENTRICULAR TACHYCARDIA 10/12/2019 MARCUS MONACO MD Ot I80.209 PHLBTS AND THOMBOPHLB OF UNSP DEEP VESSE 10/12/2019 MARCUS MONACO MD Ot K59.00 CONSTIPATION, UNSPECIFIED 10/12/2019 MARCUS MONACO MD Ot M19.90 UNSPECIFIED OSTEOARTHRITIS, UNSPECIFIED 10/12/2019 MARCUS MONACO MD Ot T85.848 A PAIN DUE TO OTHER INTERNAL PROSTH DEV/GR 10/12/2019 MARCUS MONACO MD, Ot Z51.11 ENCOUNTER FOR ANTINEOPLASTIC CHEMOTHERAP 10/12/2019 MARCUS MONACO MD Ot Z80.9 FAMILY HISTORY OF MALIGNANT NEOPLASM, UN 10/12/2019 MARCUS MONACO MD Ot Z89.432 ACQUIRED ABSENCE OF LEFT FOOT 10/12/2019 MARCUS MONACO MD Ot Z93.1 GASTROSTOMY STATUS 10/12/2019 MARCUS MONACO MD Ot Z95.5 PRESENCE OF CORONARY ANGIOPLASTY IMPLANT 10/12/2019 MARCUS MONACO MD Ot Z95.828 PRESENCE OF OTHER VASCULAR IMPLANTS AND 10/12/2019 MARCUS MONACO MD Ot Z96.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 10/12/2019 MARCUS MONACO MD Ot Z98.890 OTHER SPECIFIED POSTPROCEDURAL STATES 10/14/2019 MARCUS MONACO MD Ot 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 10/14/2019 MARCUS MONACO MD Ot 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, ORAL 10/14/2019 MARCUS MONACO MD Ot F32.9 MAJOR DEPRESSIVE DISORDER, SINGLE EPISOD 10/14/2019 MARCUS MONACO MD Ot F41.9 ANXIETY DISORDER, UNSPECIFIED 10/14/2019 MARCUS MONACO MD Ot I47.1 SUPRAVENTRICULAR TACHYCARDIA 10/14/2019 MARCUS MONACO MD Ot I80.209 PHLBTS AND THOMBOPHLB OF UNSP DEEP VESSE 10/14/2019 MARCUS MONACO MD Ot K59.00 CONSTIPATION, UNSPECIFIED 10/14/2019 MARCUS MONACO MD Ot M19.90 UNSPECIFIED OSTEOARTHRITIS, UNSPECIFIED 10/14/2019 MARCUS MONACO MD Ot T85.848 A PAIN DUE TO OTHER INTERNAL PROSTH DEV/GR 10/14/2019 MARCUS MONACO MD Ot Z51.0 ENCOUNTER FOR ANTINEOPLASTIC RADIATION T 10/14/2019 MARCUS MONACO MD Ot Z51.11 ENCOUNTER FOR ANTINEOPLASTIC CHEMOTHERAP 10/14/2019 MARCUS MONACO MD Ot Z80.9 FAMILY HISTORY OF MALIGNANT NEOPLASM, UN 10/14/2019 MARCUS MONACO MD Ot Z89.432 ACQUIRED ABSENCE OF LEFT FOOT 10/14/2019 MARCUS MONACO MD Ot Z93.1 GASTROSTOMY STATUS 10/14/2019 MARCUS MONACO MD Ot Z95.5 PRESENCE OF CORONARY ANGIOPLASTY IMPLANT 10/14/2019 MARCUS MONACO MD Ot Z95.828 PRESENCE OF OTHER VASCULAR IMPLANTS AND 10/14/2019 MARCUS MONACO MD Ot Z96.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 10/14/2019 MARCUS MONACO MD Ot Z98.890 OTHER SPECIFIED POSTPROCEDURAL STATES 10/18/2019 MARCUS MONACO MD Ot 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 10/18/2019 MARCUS MONACO MD Ot 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, ORAL 10/18/2019 MARCUS MONACO MD Ot F32.9 MAJOR DEPRESSIVE DISORDER, SINGLE EPISOD 10/18/2019 MARCUS MONACO MD Ot F41.9 ANXIETY DISORDER, UNSPECIFIED 10/18/2019 MARCUS MONACO MD Ot I47.1 SUPRAVENTRICULAR TACHYCARDIA 10/18/2019 MARCUS MONACO MD Ot I80.209 PHLBTS AND THOMBOPHLB OF UNSP DEEP VESSE 10/18/2019 MARCUS MONACO MD Ot K59.00 CONSTIPATION, UNSPECIFIED 10/18/2019 MARCUS MONACO MD Ot M19.90 UNSPECIFIED OSTEOARTHRITIS, UNSPECIFIED 10/18/2019 MARCUS MONACO MD Ot T85.848 A PAIN DUE TO OTHER INTERNAL PROSTH DEV/GR 10/18/2019 MARCUS MONACO MD, Ot Z51.0 ENCOUNTER FOR ANTINEOPLASTIC RADIATION T 10/18/2019 MARCUS MONACO MD Ot Z51.11 ENCOUNTER FOR ANTINEOPLASTIC CHEMOTHERAP 10/18/2019 MARCUS MONACO MD Ot Z80.9 FAMILY HISTORY OF MALIGNANT NEOPLASM, UN 10/18/2019 MARCUS MONACO MD Ot Z89.432 ACQUIRED ABSENCE OF LEFT FOOT 10/18/2019 MARCUS MONACO MD Ot Z93.1 GASTROSTOMY STATUS 10/18/2019 MARCUS MONACO MD Ot Z95.5 PRESENCE OF CORONARY ANGIOPLASTY IMPLANT 10/18/2019 MARCUS MONACO MD Ot Z95.828 PRESENCE OF OTHER VASCULAR IMPLANTS AND 10/18/2019 MARCUS MONACO MD Ot Z96.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 10/18/2019 MARCUS MONACO MD Ot Z98.890 OTHER SPECIFIED POSTPROCEDURAL STATES 10/18/2019 MARCUS MONACO MD Ot R56.9 UNSPECIFIED CONVULSIONS 10/18/2019 MARCUS MONACO MD Ot Z85.818 PRSNL HX OF MALIG NEOPLM OF SITE OF LIP, Procedures Code Description [place] [address] THER APUTIC INJ SQ/IM 05/16/2013 J0696 ROCE PHIN INJ 05/16/2013 33089 XRAY CHEST 2 VIEW 06/07/2013 74009 ROUT INE VENIPUNCTURE 08/04/2013 84574 EKG, TRACING (IN-HOUSE) 08/04/2013 47667 CBC 08/04/2013 [id number] GF R CALC (RESULT ONLY) 08/04/2013 62614 CMP 08/04/2013 48394 LIPI D PANEL 08/04/2013 01970 MAGNESIUM 08/04/2013 02334 TSH 08/04/2013 Cardiolog Augie Fong 08/05/2013 84.12 AMPU TATION THROUGH FOOT 08/06/2013 86.22 EXCI S DEBRIDE OF WOUND, INFECT, OR BURN 08/08/2013 Orthopedi Reveal, Marissa 08/25/2013 Orthopedi Reveal, Marissa 08/25/2013 200399 CANDY RITOX DRUG SCREEN 11/17/2013 General S Jorge August 02/15/2014 46487 ROUT INE VENIPUNCTURE 03/09/2014 34917 XRAY CERVICAL SPINE, 2 OR 3 VIEWS 03/09/2014 41544 XRAY HAND RIGHT 2 VIEWS 03/09/2014 75347 XRAY ANKLE R, 2 VIEWS 03/09/2014 10661 CBC 03/09/2014 35653 CMP 03/09/2014 04171 LIPI D PANEL 03/09/2014 [id number] GF R CALC (RESULT ONLY) 03/09/2014 26522 TSH 03/09/2014 71459 ROUT INE VENIPUNCTURE 06/22/2014 [id number] GF R CALC (RESULT ONLY) 06/22/2014 80438 CMP 06/22/2014 01764 LIPI D PANEL 06/22/2014 02647 INJ TENDON SHEATH/LIGAMENT 07/20/2014 24068 JOIN T INJECTION - SMALL JOINT 07/20/2014 J1030 DEPO MEDROL 40 MG INJ 07/20/2014 22830 AMERITOX 10/25/2014 Physical P hysical Therapy 11/03/[address]/INFUSE THROMBOLYTIC AGENT 01/03/[id number] OF R KNEE JT WITH SYNTH SUB, ZAINAB 12/24/2016 [id number] IN SERTION OF INFUSION DEV INTO SUP VENA 01/06/2017 [id number] IN SERTION OF INFUSION DEV INTO SUP VENA 04/09/2017 Results Test Result Range Clostridium difficile detection - 22:50 C DIFF MOLECULAR RESULT Negative for toxigen ic C diff by DNA amplification NRG Stool bacteria identification by culture - 01/08/16 22:50 FREE TEXT EXTERNAL CONFIRMED BY KDHE, SEE COMMENT NRG QUANTITY OF GROWTH Isolated NRG Stool bacteria identification by culture [id number] NRG NOT CULTURED VIBRIOTYERS VIBRIO AND YERSINIA NOT ROUTINELY CULTURED FOR IN THIS LAB NRG NEGATIVE FOR 0157 NEGATIVE FOR E COLI 0157 NRG NEGATIVE FOR CAMPY NEGATIVE FOR CAMPYLOBACTER NRG NEGATIVE FOR SHIGELLA NEGATIVE FOR SHIGELLA NRG Automated blood complete blood count (he mogram) panel - 02/26/16 11:20 Blood leukocytes automated count (number/volume) 14.0 10*3/uL 4.3-11.0 Blood erythrocytes automated count (number/volume) 4.02 10*6/uL 4.35-5.85 Venous blood hemoglobin measurement (mass/volume) 9.0 g/dL 11.5-16.0 Blood hematocrit (volume fraction) 29 % 35-52 Automated erythrocyte mean corpuscular volume 73 [ foz_us] 80-99 Automated erythrocyte mean corpuscular h emoglobin (mass per erythrocyte) 22 pg 25-34 Automated erythrocyte mean corpuscular h emoglobin concentration measurement (mass/volume) 31 g/dL 32-36 Automated erythrocyte distribution width ratio 18. 7 % 10.0- 14.5 Automated blood platelet count (count/volume) 1042 10*3/uL 130-400 Automated blood platelet mean volume measurement 8.3 [foz_us] 7.4-10.4 CBC With Differential/Platelet - 6 08:55 WBC 16.0 x10E3/uL 3.4-10.8 RBC 4.28 x10E6/uL 3.77-5.28 Hemoglobin 9.8 g/dL 11.1-15.9 Hematocrit 33.0 % 34.0-46.6 MCV 77 fL 79-97 MCH 22.9 pg 26.6-33.0 MCHC 29.7 g/dL 31.5-35.7 RDW 23.8 % 12.3-15.4 Platelets 682 x10E3/uL 150-379 Neutrophils 81 % Lymphs 13 % Monocytes 6 % Eos 0 % Basos 0 % Neutrophils (Absolute) 12.8 x10E3/uL 1.4 -7.0 Lymphs (Absolute) 2.2 x10E3/uL 0.7-3.1 Monocytes(Absolute) 0.9 x10E3/uL 0.1-0.9 Eos (Absolute) 0.1 x10E3/uL 0.0-0.4 Baso (Absolute) 0.0 x10E3/uL 0.0-0.2 Immature Granulocytes 0 % Immature Grans (Abs) 0.0 x10E3/uL 0.0-0. 1 NRBC 0 % 0 - 0 Hematology Comments: Note: Comp. Metabolic Panel (14) - 04/01/16 08 :55 Glucose, Serum 90 mg/dL 65-99 BUN 13 mg/dL 8-27 Creatinine, Serum 0.82 mg/dL 0.57-1.00 eGFR If NonAfricn Am 75 mL/min/1.73 >59 eGFR If Africn Am 86 mL/min/1.73 >59 BUN/Creatinine Ratio 16 11-26 Sodium, Serum 140 mmol/L 134-144 Potassium, Serum 4.3 mmol/L 3.5-5.2 Chloride, Serum 96 mmol/L 97-108 Carbon Dioxide, Total 24 mmol/L 18-29 Calcium, Serum 9.4 mg/dL 8.7-10.3 Protein, Total, Serum 7.7 g/dL 6.0-8.5 Albumin, Serum 3.2 g/dL 3.6-4.8 Globulin, Total 4.5 g/dL 1.5-4.5 A/G Ratio 0.7 1.1-2.5 Bilirubin, Total 0.6 mg/dL 0.0-1.2 Alkaline Phosphatase, S 112 IU/L 39-117 AST (SGOT) 14 IU/L 0-40 ALT (SGPT) 10 IU/L 0-32 Antinuclear Ab Reflex [place] - 04/01/16 08:55 JEMMA Direct Negative Negative See below: Comment Rheumatoid Arthritis Factor - 04/01/16 0 8:55 RA Latex Turbid. 1258.6 IU/mL 0.0-13.9 Uric Acid, Serum - 04/01/16 08:55 Uric Acid, Serum 7.0 mg/dL 2.5-7.1 Complete blood count (CBC) with automate d white blood cell (WBC) differential - 04/21/16 11:50 Blood leukocytes automated count (number/volume) 38.1 10*3/uL 4.3-11.0 Blood erythrocytes automated count (number/volume) 4.53 10*6/uL 4.35-5.85 Venous blood hemoglobin measurement (mass/volume) 11.2 g/dL 11.5-16.0 Blood hematocrit (volume fraction) 35 % 35-52 Automated erythrocyte mean corpuscular volume 78 [ foz_us] 80-99 Automated erythrocyte mean corpuscular h emoglobin (mass per erythrocyte) 25 pg 25-34 Automated erythrocyte mean corpuscular h emoglobin concentration measurement (mass/volume) 32 g/dL 32-36 Automated erythrocyte distribution width ratio 26. 4 % 10.0- 14.5 Automated blood platelet count (count/volume) 767 10*3/uL 130-400 Automated blood platelet mean volume measurement 10.0 [foz_us] 7.4-10.4 Automated blood neutrophils/100 leukocytes 85 % 42-75 Automated blood lymphocytes/100 leukocytes 7 % 12-44 Blood monocytes/100 leukocytes 7 % 0-12 Automated blood eosinophils/100 leukocytes 0 % 0-10 Automated blood basophils/100 leukocytes 0 % 0-10 Blood neutrophils automated count (number/volume) 32.5 10*3 1.8-7.8 Blood lymphocytes automated count (number/volume) 2.6 10*3 1.0-4.0 Blood monocytes automated count (number/volume) 2. 8 10*3 0.0-1.0 Automated eosinophil count 0.1 10*3/uL 0 .0-0.3 Automated blood basophil count (count/volume) 0.1 10*3/uL 0.0-0.1 Comprehensive metabolic panel - 04/21/16 11:50 Serum or plasma sodium measurement (moles/volume) 139 mmol/L 135-145 Serum or plasma potassium measurement (moles/volume) 2.8 mmol/L 3.6-5.0 Serum or plasma chloride measurement (moles/volume) 105 mmol/L 98-107 Carbon dioxide 18 mmol/L 21-32 Serum or plasma anion gap determination (moles/volume) 16 mmol/L 5-14 Serum or plasma urea nitrogen measurement (mass/volume ) 15 mg/dL 7-18 Serum or plasma creatinine measurement (mass/volume) 0.68 mg/dL 0.60-1.30 Serum or plasma urea nitrogen/creatinine mass ratio 22 NRG Serum or plasma creatinine measurement w ith calculation of estimated glomerular filtration rate > NRG Serum or plasma glucose measurement (mass/volume) 107 mg/dL 70-105 Serum or plasma calcium measurement (mass/volume) 8.7 mg/dL 8.5-10.1 Serum or plasma total bilirubin measurement (mass/volu me) 0.8 mg/dL 0.1-1.0 Serum or plasma alkaline phosphatase shiv surement (enzymatic activity/volume) 107 U/L 40-136 Serum or plasma aspartate aminotransfera se measurement (enzymatic activity/volume) 17 U/L 5-34 Serum or plasma alanine aminotransferase measurement (enzymatic activity/volume) 13 U/L 0-55 Serum or plasma protein measurement (mass/volume) 6.6 g/dL 6.4-8.2 Serum or plasma albumin measurement (mass/volume) 2.8 g/dL 3.2-4.5 Magnesium - 04/21/16 11:50 Magnesium 1.7 mg/dL 1.8-2.4 Lipase - 04/21/16 11:50 Lipase < U/L 8-78 Blood manual differential performed dete ction - 04/21/16 11:50 Blood monocytes/100 leukocytes 5 % NRG Manual blood segmented neutrophils/100 leukocytes 83 % NRG Blood band neutrophils/100 leukocytes 6 % NRG Manual blood lymphocytes/100 leukocytes 4 % NRG Manual eosinophils/100 leukocytes in nose 2 % NRG Manual blood basophils/100 leukocytes 0 % NRG Blood anisocytosis detection by light microscopy M ARKED NRG Blood hypochromia detection by light microscopy SL IGHT NRG Blood target cells detection by light microscopy M ODERATE NRG Bacterial blood culture - 04/21/16 11:50 FREE TEXT EXTERNAL SEE COMMENTS NRG QUANTITY OF GROWTH Isolated NRG Bacterial blood culture [id number] NRG Blood lactic acid measurement (moles/vol ume) - 04/21/16 12:10 Blood lactic acid measurement (moles/volume) 1.4 m mol/L 0.5- 2.0 Bacterial blood culture - 04/21/16 12:40 Bacterial blood culture NG NRG Complete urinalysis with reflex to cultu re - 04/21/16 12:55 Urine color determination YELLOW NRG Urine clarity determination CLEAR NR G Urine pH measurement by test strip 6 5-9 Specific gravity of urine by test strip 1.020 1.016-1.022 Urine protein assay by test strip, semi-quantitative 2+ NEGATIVE Urine glucose detection by automated test strip NE GATIVE NEGATIVE Erythrocytes detection in urine sediment by light micr oscopy NEGATIVE NEGATIVE Urine ketones detection by automated test strip NE GATIVE NEGATIVE Urine nitrite detection by test strip NEGATIVE NEGATIVE Urine total bilirubin detection by test strip NEGA TIVE NEGATIVE Urine urobilinogen measurement by automated test strip (mass/volume) NORMAL NORMAL Urine leukocyte esterase detection by dipstick 1+ NEGATIVE Automated urine sediment erythrocyte cou nt by microscopy (number/high power field) RARE NRG Automated urine sediment leukocyte count by microscopy (number/high power field) [HPF] NRG Bacteria detection in urine sediment by light microsco py TRACE NRG Squamous epithelial cells detection in u rine sediment by light microscopy 2-5 NRG Crystals detection in urine sediment by light microsco py NONE NRG Casts detection in urine sediment by light microscopy PRESENT NRG Mucus detection in urine sediment by light microscopy SMALL NRG Complete urinalysis with reflex to culture YES NRG Hyaline casts detection in urine sediment by light priti roscopy RARE NRG Bacterial urine culture - 04/21/16 12:55 URINE CULTURE RESULTS 10,000/ML - 100,000/ML NRG Stool occult blood screen - 04/21/16 13: 25 Stool gastrointestinal hemoglobin detection POSITI VE NEGATIVE Clostridium difficile detection - 13:25 C DIFF MOLECULAR RESULT Positive for toxigen ic C diff by DNA amplification NRG CALL POSITIVES (F1 HELP) CALLED TO CINTHIA CARLSON 04/21/16 16:15 BY S.T. NRG C DIFFICILE AG + TOXIN A/B. - 04/21/16 1 3:25 C DIFFICILE AG + TOXIN A/B. TNP NR G Stool bacteria identification by culture - 04/21/16 13:25 Stool bacteria identification by culture N2 NRG Complete blood count (CBC) with automate d white blood cell (WBC) differential - 04/22/16 04:30 Blood leukocytes automated count (number/volume) 40.6 10*3/uL 4.3-11.0 Blood erythrocytes automated count (number/volume) 3.75 10*6/uL 4.35-5.85 Venous blood hemoglobin measurement (mass/volume) 9.2 g/dL 11.5-16.0 Blood hematocrit (volume fraction) 29 % 35-52 Automated erythrocyte mean corpuscular volume 78 [ foz_us] 80-99 Automated erythrocyte mean corpuscular h emoglobin (mass per erythrocyte) 25 pg 25-34 Automated erythrocyte mean corpuscular h emoglobin concentration measurement (mass/volume) 31 g/dL 32-36 Automated erythrocyte distribution width ratio 26. 2 % 10.0- 14.5 Automated blood platelet count (count/volume) 613 10*3/uL 130-400 Automated blood platelet mean volume measurement 9.5 [foz_us] 7.4-10.4 Automated blood neutrophils/100 leukocytes 87 % 42-75 Automated blood lymphocytes/100 leukocytes 6 % 12-44 Blood monocytes/100 leukocytes 6 % 0-12 Automated blood eosinophils/100 leukocytes 0 % 0-10 Automated blood basophils/100 leukocytes 0 % 0-10 Blood neutrophils automated count (number/volume) 35.5 10*3 1.8-7.8 Blood lymphocytes automated count (number/volume) 2.4 10*3 1.0-4.0 Blood monocytes automated count (number/volume) 2. 6 10*3 0.0-1.0 Automated eosinophil count 0.1 10*3/uL 0 .0-0.3 Automated blood basophil count (count/volume) 0.0 10*3/uL 0.0-0.1 Whole blood basic metabolic panel - 04/12 07/28 04:30 Serum or plasma sodium measurement (moles/volume) 142 mmol/L 135-145 Serum or plasma potassium measurement (moles/volume) 3.3 mmol/L 3.6-5.0 Serum or plasma chloride measurement (moles/volume) 114 mmol/L 98-107 Carbon dioxide 17 mmol/L 21-32 Serum or plasma anion gap determination (moles/volume) 11 mmol/L 5-14 Serum or plasma urea nitrogen measurement (mass/volume ) 9 mg/dL 7-18 Serum or plasma creatinine measurement (mass/volume) 0.52 mg/dL 0.60-1.30 Serum or plasma urea nitrogen/creatinine mass ratio 17 NRG Serum or plasma creatinine measurement w ith calculation of estimated glomerular filtration rate > NRG Serum or plasma glucose measurement (mass/volume) 89 mg/dL 70-105 Serum or plasma calcium measurement (mass/volume) 7.6 mg/dL 8.5-10.1 Magnesium - 04/22/16 04:30 Magnesium 1.6 mg/dL 1.8-2.4 Complete blood count (CBC) with automate d white blood cell (WBC) differential - 04/23/16 05:45 Blood leukocytes automated count (number/volume) 30.0 10*3/uL 4.3-11.0 Blood erythrocytes automated count (number/volume) 3.88 10*6/uL 4.35-5.85 Venous blood hemoglobin measurement (mass/volume) 9.5 g/dL 11.5-16.0 Blood hematocrit (volume fraction) 30 % 35-52 Automated erythrocyte mean corpuscular volume 78 [ foz_us] 80-99 Automated erythrocyte mean corpuscular h emoglobin (mass per erythrocyte) 25 pg 25-34 Automated erythrocyte mean corpuscular h emoglobin concentration measurement (mass/volume) 32 g/dL 32-36 Automated erythrocyte distribution width ratio 26. 3 % 10.0- 14.5 Automated blood platelet count (count/volume) 641 10*3/uL 130-400 Automated blood platelet mean volume measurement 9.6 [foz_us] 7.4-10.4 Automated blood neutrophils/100 leukocytes 85 % 42-75 Automated blood lymphocytes/100 leukocytes 7 % 12-44 Blood monocytes/100 leukocytes 6 % 0-12 Automated blood eosinophils/100 leukocytes 2 % 0-10 Automated blood basophils/100 leukocytes 0 % 0-10 Blood neutrophils automated count (number/volume) 25.7 10*3 1.8-7.8 Blood lymphocytes automated count (number/volume) 2.2 10*3 1.0-4.0 Blood monocytes automated count (number/volume) 1. 6 10*3 0.0-1.0 Automated eosinophil count 0.5 10*3/uL 0 .0-0.3 Automated blood basophil count (count/volume) 0.1 10*3/uL 0.0-0.1 Comprehensive metabolic panel - 04/23/16 05:45 Serum or plasma sodium measurement (moles/volume) 144 mmol/L 135-145 Serum or plasma potassium measurement (moles/volume) 4.0 mmol/L 3.6-5.0 Serum or plasma chloride measurement (moles/volume) 119 mmol/L 98-107 Carbon dioxide 15 mmol/L 21-32 Serum or plasma anion gap determination (moles/volume) 10 mmol/L 5-14 Serum or plasma urea nitrogen measurement (mass/volume ) 7 mg/dL 7-18 Serum or plasma creatinine measurement (mass/volume) 0.52 mg/dL 0.60-1.30 Serum or plasma urea nitrogen/creatinine mass ratio 13 NRG Serum or plasma creatinine measurement w ith calculation of estimated glomerular filtration rate > NRG Serum or plasma glucose measurement (mass/volume) 89 mg/dL 70-105 Serum or plasma calcium measurement (mass/volume) 7.7 mg/dL 8.5-10.1 Serum or plasma total bilirubin measurement (mass/volu me) 0.3 mg/dL 0.1-1.0 Serum or plasma alkaline phosphatase shiv surement (enzymatic activity/volume) 80 U/L 40-136 Serum or plasma aspartate aminotransfera se measurement (enzymatic activity/volume) 15 U/L 5-34 Serum or plasma alanine aminotransferase measurement (enzymatic activity/volume) 12 U/L 0-55 Serum or plasma protein measurement (mass/volume) 5.5 g/dL 6.4-8.2 Serum or plasma albumin measurement (mass/volume) 2.3 g/dL 3.2-4.5 Magnesium - 04/23/16 05:45 Magnesium 1.8 mg/dL 1.8-2.4 Complete blood count (CBC) with automate d white blood cell (WBC) differential - 04/24/16 04:59 Blood leukocytes automated count (number/volume) 17.1 10*3/uL 4.3-11.0 Blood erythrocytes automated count (number/volume) 3.85 10*6/uL 4.35-5.85 Venous blood hemoglobin measurement (mass/volume) 9.3 g/dL 11.5-16.0 Blood hematocrit (volume fraction) 30 % 35-52 Automated erythrocyte mean corpuscular volume 79 [ foz_us] 80-99 Automated erythrocyte mean corpuscular h emoglobin (mass per erythrocyte) 24 pg 25-34 Automated erythrocyte mean corpuscular h emoglobin concentration measurement (mass/volume) 31 g/dL 32-36 Automated erythrocyte distribution width ratio 27. 1 % 10.0- 14.5 Automated blood platelet count (count/volume) 668 10*3/uL 130-400 Automated blood platelet mean volume measurement 9.6 [foz_us] 7.4-10.4 Automated blood neutrophils/100 leukocytes 76 % 42-75 Automated blood lymphocytes/100 leukocytes 13 % 12-44 Blood monocytes/100 leukocytes 8 % 0-12 Automated blood eosinophils/100 leukocytes 3 % 0-10 Automated blood basophils/100 leukocytes 0 % 0-10 Blood neutrophils automated count (number/volume) 13.1 10*3 1.8-7.8 Blood lymphocytes automated count (number/volume) 2.1 10*3 1.0-4.0 Blood monocytes automated count (number/volume) 1. 4 10*3 0.0-1.0 Automated eosinophil count 0.5 10*3/uL 0 .0-0.3 Automated blood basophil count (count/volume) 0.1 10*3/uL 0.0-0.1 Whole blood basic metabolic panel - 04/12 09/25 04:59 Serum or plasma sodium measurement (moles/volume) 145 mmol/L 135-145 Serum or plasma potassium measurement (moles/volume) 4.3 mmol/L 3.6-5.0 Serum or plasma chloride measurement (moles/volume) 118 mmol/L 98-107 Carbon dioxide 20 mmol/L 21-32 Serum or plasma anion gap determination (moles/volume) 7 mmol/L 5-14 Serum or plasma urea nitrogen measurement (mass/volume ) 5 mg/dL 7-18 Serum or plasma creatinine measurement (mass/volume) 0.54 mg/dL 0.60-1.30 Serum or plasma urea nitrogen/creatinine mass ratio 9 NRG Serum or plasma creatinine measurement w ith calculation of estimated glomerular filtration rate > NRG Serum or plasma glucose measurement (mass/volume) 77 mg/dL 70-105 Serum or plasma calcium measurement (mass/volume) 7.6 mg/dL 8.5-10.1 Basic Metabolic Panel (8) - 05/06/16 00: 00 Glucose, Serum 93 mg/dL 65-99 BUN 10 mg/dL 8-27 Creatinine, Serum 0.57 mg/dL 0.57-1.00 eGFR If NonAfricn Am 97 mL/min/1.73 >59 eGFR If Africn Am 112 mL/min/1.73 >5 9 BUN/Creatinine Ratio 18 11-26 Sodium, Serum 142 mmol/L 136-144 Potassium, Serum 4.9 mmol/L 3.5-5.2 Chloride, Serum 99 mmol/L 97-106 Carbon Dioxide, Total 27 mmol/L 18-29 Calcium, Serum 8.9 mg/dL 8.7-10.3 Magnesium, Serum - 05/06/16 00:00 Magnesium, Serum 1.9 mg/dL 1.6-2.3 C DIFFICILE AG + TOXIN A/B. - 05/10/16 1 3:21 CALL POSITIVES (F1 HELP) CALLED TO CINTHIA HOLGUIN/ ER 05/10/16 14:15 BY Tawnya LARSEN SPECIAL CONTACT SPECIAL CONTACT PRECAUTIONS NEEDED NRG RESULTS POSITIVE FOR ANTIGEN AND TOXIN A/B NRG Complete blood count (CBC) with automate d white blood cell (WBC) differential - 05/10/16 14:10 Blood leukocytes automated count (number/volume) 17.9 10*3/uL 4.3-11.0 Blood erythrocytes automated count (number/volume) 4.87 10*6/uL 4.35-5.85 Venous blood hemoglobin measurement (mass/volume) 13.0 g/dL 11.5-16.0 Blood hematocrit (volume fraction) 40 % 35-52 Automated erythrocyte mean corpuscular volume 83 [ foz_us] 80-99 Automated erythrocyte mean corpuscular h emoglobin (mass per erythrocyte) 27 pg 25-34 Automated erythrocyte mean corpuscular h emoglobin concentration measurement (mass/volume) 32 g/dL 32-36 Automated erythrocyte distribution width ratio 27. 5 % 10.0- 14.5 Automated blood platelet count (count/volume) 585 10*3/uL 130-400 Automated blood platelet mean volume measurement 9.4 [foz_us] 7.4-10.4 Automated blood neutrophils/100 leukocytes 87 % 42-75 Automated blood lymphocytes/100 leukocytes 6 % 12-44 Blood monocytes/100 leukocytes 7 % 0-12 Automated blood eosinophils/100 leukocytes 0 % 0-10 Automated blood basophils/100 leukocytes 0 % 0-10 Blood neutrophils automated count (number/volume) 15.5 10*3 1.8-7.8 Blood lymphocytes automated count (number/volume) 1.1 10*3 1.0-4.0 Blood monocytes automated count (number/volume) 1. 2 10*3 0.0-1.0 Automated eosinophil count 0.0 10*3/uL 0 .0-0.3 Automated blood basophil count (count/volume) 0.0 10*3/uL 0.0-0.1 Comprehensive metabolic panel - 05/10/16 14:10 Serum or plasma sodium measurement (moles/volume) 137 mmol/L 135-145 Serum or plasma potassium measurement (moles/volume) 3.7 mmol/L 3.6-5.0 Serum or plasma chloride measurement (moles/volume) 101 mmol/L 98-107 Carbon dioxide 24 mmol/L 21-32 Serum or plasma anion gap determination (moles/volume) 12 mmol/L 5-14 Serum or plasma urea nitrogen measurement (mass/volume ) 16 mg/dL 7-18 Serum or plasma creatinine measurement (mass/volume) 0.75 mg/dL 0.60-1.30 Serum or plasma urea nitrogen/creatinine mass ratio 21 NRG Serum or plasma creatinine measurement w ith calculation of estimated glomerular filtration rate > NRG Serum or plasma glucose measurement (mass/volume) 153 mg/dL 70-105 Serum or plasma calcium measurement (mass/volume) 8.8 mg/dL 8.5-10.1 Serum or plasma total bilirubin measurement (mass/volu me) 0.7 mg/dL 0.1-1.0 Serum or plasma alkaline phosphatase shiv surement (enzymatic activity/volume) 109 U/L 40-136 Serum or plasma aspartate aminotransfera se measurement (enzymatic activity/volume) 23 U/L 5-34 Serum or plasma alanine aminotransferase measurement (enzymatic activity/volume) 58 U/L 0-55 Serum or plasma protein measurement (mass/volume) 7.3 g/dL 6.4-8.2 Serum or plasma albumin measurement (mass/volume) 3.3 g/dL 3.2-4.5 Blood manual differential performed dete ction - 05/10/16 14:10 Blood monocytes/100 leukocytes 7 % NRG Manual blood segmented neutrophils/100 leukocytes 80 % NRG Blood band neutrophils/100 leukocytes 8 % NRG Manual blood lymphocytes/100 leukocytes 5 % NRG Blood erythrocyte morphology finding identification NORMAL NRG Blood toxic granules detection by light microscopy 1+ NRG Complete blood count (CBC) with automate d white blood cell (WBC) differential - 05/11/16 04:46 Blood leukocytes automated count (number/volume) 14.1 10*3/uL 4.3-11.0 Blood erythrocytes automated count (number/volume) 4.48 10*6/uL 4.35-5.85 Venous blood hemoglobin measurement (mass/volume) 11.8 g/dL 11.5-16.0 Blood hematocrit (volume fraction) 37 % 35-52 Automated erythrocyte mean corpuscular volume 83 [ foz_us] 80-99 Automated erythrocyte mean corpuscular h emoglobin (mass per erythrocyte) 26 pg 25-34 Automated erythrocyte mean corpuscular h emoglobin concentration measurement (mass/volume) 32 g/dL 32-36 Automated erythrocyte distribution width ratio 26. 7 % 10.0- 14.5 Automated blood platelet count (count/volume) 570 10*3/uL 130-400 Automated blood platelet mean volume measurement 9.9 [foz_us] 7.4-10.4 Automated blood neutrophils/100 leukocytes 74 % 42-75 Automated blood lymphocytes/100 leukocytes 13 % 12-44 Blood monocytes/100 leukocytes 12 % 0-12 Automated blood eosinophils/100 leukocytes 1 % 0-10 Automated blood basophils/100 leukocytes 0 % 0-10 Blood neutrophils automated count (number/volume) 10.3 10*3 1.8-7.8 Blood lymphocytes automated count (number/volume) 1.8 10*3 1.0-4.0 Blood monocytes automated count (number/volume) 1. 7 10*3 0.0-1.0 Automated eosinophil count 0.2 10*3/uL 0 .0-0.3 Automated blood basophil count (count/volume) 0.0 10*3/uL 0.0-0.1 Whole blood basic metabolic panel - 04/14 04:46 Serum or plasma sodium measurement (moles/volume) 135 mmol/L 135-145 Serum or plasma potassium measurement (moles/volume) 3.1 mmol/L 3.6-5.0 Serum or plasma chloride measurement (moles/volume) 102 mmol/L 98-107 Carbon dioxide 21 mmol/L 21-32 Serum or plasma anion gap determination (moles/volume) 12 mmol/L 5-14 Serum or plasma urea nitrogen measurement (mass/volume ) 14 mg/dL 7-18 Serum or plasma creatinine measurement (mass/volume) 0.60 mg/dL 0.60-1.30 Serum or plasma urea nitrogen/creatinine mass ratio 23 NRG Serum or plasma creatinine measurement w ith calculation of estimated glomerular filtration rate > NRG Serum or plasma glucose measurement (mass/volume) 124 mg/dL 70-105 Serum or plasma calcium measurement (mass/volume) 8.5 mg/dL 8.5-10.1 Whole blood basic metabolic panel - 04/14 07/28 06:05 Serum or plasma sodium measurement (moles/volume) 140 mmol/L 135-145 Serum or plasma potassium measurement (moles/volume) 2.6 mmol/L 3.6-5.0 Serum or plasma chloride measurement (moles/volume) 109 mmol/L 98-107 Carbon dioxide 24 mmol/L 21-32 Serum or plasma anion gap determination (moles/volume) 7 mmol/L 5-14 Serum or plasma urea nitrogen measurement (mass/volume ) 8 mg/dL 7-18 Serum or plasma creatinine measurement (mass/volume) 0.51 mg/dL 0.60-1.30 Serum or plasma urea nitrogen/creatinine mass ratio 16 NRG Serum or plasma creatinine measurement w ith calculation of estimated glomerular filtration rate > NRG Serum or plasma glucose measurement (mass/volume) 77 mg/dL 70-105 Serum or plasma calcium measurement (mass/volume) 7.5 mg/dL 8.5-10.1 Complete blood count (CBC) with automate d white blood cell (WBC) differential - 05/13/16 05:54 Blood leukocytes automated count (number/volume) 13.2 10*3/uL 4.3-11.0 Blood erythrocytes automated count (number/volume) 3.71 10*6/uL 4.35-5.85 Venous blood hemoglobin measurement (mass/volume) 9.8 g/dL 11.5-16.0 Blood hematocrit (volume fraction) 31 % 35-52 Automated erythrocyte mean corpuscular volume 84 [ foz_us] 80-99 Automated erythrocyte mean corpuscular h emoglobin (mass per erythrocyte) 26 pg 25-34 Automated erythrocyte mean corpuscular h emoglobin concentration measurement (mass/volume) 32 g/dL 32-36 Automated erythrocyte distribution width ratio 26. 1 % 10.0- 14.5 Automated blood platelet count (count/volume) 437 10*3/uL 130-400 Automated blood platelet mean volume measurement 10.3 [foz_us] 7.4-10.4 Automated blood neutrophils/100 leukocytes 60 % 42-75 Automated blood lymphocytes/100 leukocytes 18 % 12-44 Blood monocytes/100 leukocytes 10 % 0-12 Automated blood eosinophils/100 leukocytes 11 % 0-10 Automated blood basophils/100 leukocytes 1 % 0-10 Blood neutrophils automated count (number/volume) 7.9 10*3 1.8-7.8 Blood lymphocytes automated count (number/volume) 2.4 10*3 1.0-4.0 Blood monocytes automated count (number/volume) 1. 3 10*3 0.0-1.0 Automated eosinophil count 1.5 10*3/uL 0 .0-0.3 Automated blood basophil count (count/volume) 0.1 10*3/uL 0.0-0.1 Whole blood basic metabolic panel - 07/28 05:54 Serum or plasma sodium measurement (moles/volume) 143 mmol/L 135-145 Serum or plasma potassium measurement (moles/volume) 3.2 mmol/L 3.6-5.0 Serum or plasma chloride measurement (moles/volume) 114 mmol/L 98-107 Carbon dioxide 19 mmol/L 21-32 Serum or plasma anion gap determination (moles/volume) 10 mmol/L 5-14 Serum or plasma urea nitrogen measurement (mass/volume ) 5 mg/dL 7-18 Serum or plasma creatinine measurement (mass/volume) 0.53 mg/dL 0.60-1.30 Serum or plasma urea nitrogen/creatinine mass ratio 9 NRG Serum or plasma creatinine measurement w ith calculation of estimated glomerular filtration rate > NRG Serum or plasma glucose measurement (mass/volume) 73 mg/dL 70-105 Serum or plasma calcium measurement (mass/volume) 7.6 mg/dL 8.5-10.1 Capillary blood glucose measurement by g lucometer (mass/volume) - 05/14/16 11:03 Capillary blood glucose measurement by glucometer (mas s/volume) 92 mg/dL 70-110 Complete blood count (CBC) with automate d white blood cell (WBC) differential - 06/11/16 10:45 Blood leukocytes automated count (number/volume) 22.1 10*3/uL 4.3-11.0 Blood erythrocytes automated count (number/volume) 4.48 10*6/uL 4.35-5.85 Venous blood hemoglobin measurement (mass/volume) 12.5 g/dL 11.5-16.0 Blood hematocrit (volume fraction) 38 % 35-52 Automated erythrocyte mean corpuscular volume 86 [ foz_us] 80-99 Automated erythrocyte mean corpuscular h emoglobin (mass per erythrocyte) 28 pg 25-34 Automated erythrocyte mean corpuscular h emoglobin concentration measurement (mass/volume) 33 g/dL 32-36 Automated erythrocyte distribution width ratio 20. 6 % 10.0- 14.5 Automated blood platelet count (count/volume) 603 10*3/uL 130-400 Automated blood platelet mean volume measurement 9.5 [foz_us] 7.4-10.4 Automated blood neutrophils/100 leukocytes 72 % 42-75 Automated blood lymphocytes/100 leukocytes 15 % 12-44 Blood monocytes/100 leukocytes 10 % 0-12 Automated blood eosinophils/100 leukocytes 3 % 0-10 Automated blood basophils/100 leukocytes 0 % 0-10 Blood neutrophils automated count (number/volume) 15.8 10*3 1.8-7.8 Blood lymphocytes automated count (number/volume) 3.4 10*3 1.0-4.0 Blood monocytes automated count (number/volume) 2. 3 10*3 0.0-1.0 Automated eosinophil count 0.6 10*3/uL 0 .0-0.3 Automated blood basophil count (count/volume) 0.1 10*3/uL 0.0-0.1 Blood manual differential performed dete ction - 06/11/16 10:45 Blood monocytes/100 leukocytes 5 % NRG Manual blood segmented neutrophils/100 leukocytes 75 % NRG Blood band neutrophils/100 leukocytes 0 % NRG Manual blood lymphocytes/100 leukocytes 13 % NRG Manual eosinophils/100 leukocytes in nose 5 % NRG Manual blood basophils/100 leukocytes 0 % NRG Blood lymphocytes variant/100 leukocytes 2 % NRG Blood anisocytosis detection by light microscopy S LIGHT NRG Blood hypochromia detection by light microscopy SL IGHT NRG Blood target cells detection by light microscopy S LIGHT NRG Comprehensive metabolic panel - 06/11/16 10:45 Serum or plasma sodium measurement (moles/volume) 136 mmol/L 135-145 Serum or plasma potassium measurement (moles/volume) 4.6 mmol/L 3.6-5.0 Serum or plasma chloride measurement (moles/volume) 102 mmol/L 98-107 Carbon dioxide 22 mmol/L 21-32 Serum or plasma anion gap determination (moles/volume) 12 mmol/L 5-14 Serum or plasma urea nitrogen measurement (mass/volume ) 8 mg/dL 7-18 Serum or plasma creatinine measurement (mass/volume) 0.63 mg/dL 0.60-1.30 Serum or plasma urea nitrogen/creatinine mass ratio 13 NRG Serum or plasma creatinine measurement w ith calculation of estimated glomerular filtration rate > NRG Serum or plasma glucose measurement (mass/volume) 84 mg/dL 70-105 Serum or plasma calcium measurement (mass/volume) 9.1 mg/dL 8.5-10.1 Serum or plasma total bilirubin measurement (mass/volu me) 0.7 mg/dL 0.1-1.0 Serum or plasma alkaline phosphatase shiv surement (enzymatic activity/volume) 95 U/L 40-136 Serum or plasma aspartate aminotransfera se measurement (enzymatic activity/volume) 18 U/L 5-34 Serum or plasma alanine aminotransferase measurement (enzymatic activity/volume) 9 U/L 0-55 Serum or plasma protein measurement (mass/volume) 7.6 g/dL 6.4-8.2 Serum or plasma albumin measurement (mass/volume) 3.2 g/dL 3.2-4.5 Magnesium - 06/11/16 10:45 Magnesium 1.8 mg/dL 1.8-2.4 Bacterial blood culture - 06/11/16 10:45 Bacterial blood culture NG NRG Stool leukocytes detection by light micr oscopy - 06/11/16 11:54 FECAL WBC RESULTS NUMEROUS WBC'S OBSERVED NRG FECAL NOTE FECAL LEUKOCYTES MAY BE INTE RMITTENTLY PRESENT OR NRG FECAL NOTE UNEVENLY DISTRIBUTED IN STOO L SPECIMENS, AND WBC NRG FECAL NOTE MORPHOLOGY DEGRADES DURING TRANSPORT NRG FECAL NOTE NOTE: NRG C DIFFICILE AG + TOXIN A/B. - 06/11/16 1 1:54 RESULTS NEGATIVE FOR ANTIGEN AND TOXIN A/B NRG Stool bacteria identification by culture - 06/11/16 11:54 Stool bacteria identification by culture N2 NRG Blood lactic acid measurement (moles/vol ume) - 06/11/16 12:12 Blood lactic acid measurement (moles/volume) 0.9 m mol/L 0.5- 2.0 Bacterial blood culture - 06/11/16 12:12 Bacterial blood culture NG NRG Ova and parasites - 06/11/16 13:37 Ova and parasites TNP NRG Blood CBC with ordered manual differenti al panel - 06/12/16 09:00 Blood leukocytes automated count (number/volume) 13.6 10*3/uL 4.3-11.0 Blood erythrocytes automated count (number/volume) 4.11 10*6/uL 4.35-5.85 Venous blood hemoglobin measurement (mass/volume) 11.4 g/dL 11.5-16.0 Blood hematocrit (volume fraction) 36 % 35-52 Automated erythrocyte mean corpuscular volume 86 [ foz_us] 80-99 Automated erythrocyte mean corpuscular h emoglobin (mass per erythrocyte) 28 pg 25-34 Automated erythrocyte mean corpuscular h emoglobin concentration measurement (mass/volume) 32 g/dL 32-36 Automated erythrocyte distribution width ratio 19. 8 % 10.0- 14.5 Automated blood platelet count (count/volume) 549 10*3/uL 130-400 Automated blood platelet mean volume measurement 9.3 [foz_us] 7.4-10.4 Automated blood neutrophils/100 leukocytes 78 % 42-75 Automated blood lymphocytes/100 leukocytes 14 % 12-44 Blood monocytes/100 leukocytes 11 % NRG Automated blood eosinophils/100 leukocytes 2 % 0-10 Automated blood basophils/100 leukocytes 0 % 0-10 Blood neutrophils automated count (number/volume) 10.6 10*3 1.8-7.8 Blood lymphocytes automated count (number/volume) 1.9 10*3 1.0-4.0 Blood monocytes automated count (number/volume) 0. 9 10*3 0.0-1.0 Automated eosinophil count 0.2 10*3/uL 0 .0-0.3 Automated blood basophil count (count/volume) 0.1 10*3/uL 0.0-0.1 Manual blood segmented neutrophils/100 leukocytes 75 % NRG Blood band neutrophils/100 leukocytes 2 % NRG Manual blood lymphocytes/100 leukocytes 10 % NRG Manual eosinophils/100 leukocytes in nose 2 % NRG Manual blood basophils/100 leukocytes 0 % NRG Blood anisocytosis detection by light microscopy M ODERATE NRG Blood hypochromia detection by light microscopy SL IGHT NRG Blood target cells detection by light microscopy S LIGHT NRG Whole blood basic metabolic panel - 07/28 09:00 Serum or plasma sodium measurement (moles/volume) 141 mmol/L 135-145 Serum or plasma potassium measurement (moles/volume) 3.4 mmol/L 3.6-5.0 Serum or plasma chloride measurement (moles/volume) 111 mmol/L 98-107 Carbon dioxide 21 mmol/L 21-32 Serum or plasma anion gap determination (moles/volume) 9 mmol/L 5-14 Serum or plasma urea nitrogen measurement (mass/volume ) 5 mg/dL 7-18 Serum or plasma creatinine measurement (mass/volume) 0.55 mg/dL 0.60-1.30 Serum or plasma urea nitrogen/creatinine mass ratio 9 NRG Serum or plasma creatinine measurement w ith calculation of estimated glomerular filtration rate > NRG Serum or plasma glucose measurement (mass/volume) 103 mg/dL 70-105 Serum or plasma calcium measurement (mass/volume) 8.8 mg/dL 8.5-10.1 Complete blood count (CBC) with automate d white blood cell (WBC) differential - 06/13/16 05:50 Blood leukocytes automated count (number/volume) 14.5 10*3/uL 4.3-11.0 Blood erythrocytes automated count (number/volume) 3.92 10*6/uL 4.35-5.85 Venous blood hemoglobin measurement (mass/volume) 11.0 g/dL 11.5-16.0 Blood hematocrit (volume fraction) 34 % 35-52 Automated erythrocyte mean corpuscular volume 87 [ foz_us] 80-99 Automated erythrocyte mean corpuscular h emoglobin (mass per erythrocyte) 28 pg 25-34 Automated erythrocyte mean corpuscular h emoglobin concentration measurement (mass/volume) 32 g/dL 32-36 Automated erythrocyte distribution width ratio 19. 9 % 10.0- 14.5 Automated blood platelet count (count/volume) 485 10*3/uL 130-400 Automated blood platelet mean volume measurement 9.4 [foz_us] 7.4-10.4 Automated blood neutrophils/100 leukocytes 64 % 42-75 Automated blood lymphocytes/100 leukocytes 20 % 12-44 Blood monocytes/100 leukocytes 12 % 0-12 Automated blood eosinophils/100 leukocytes 4 % 0-10 Automated blood basophils/100 leukocytes 1 % 0-10 Blood neutrophils automated count (number/volume) 9.3 10*3 1.8-7.8 Blood lymphocytes automated count (number/volume) 2.9 10*3 1.0-4.0 Blood monocytes automated count (number/volume) 1. 7 10*3 0.0-1.0 Automated eosinophil count 0.5 10*3/uL 0 .0-0.3 Automated blood basophil count (count/volume) 0.1 10*3/uL 0.0-0.1 Whole blood basic metabolic panel - 08/28 05:50 Serum or plasma sodium measurement (moles/volume) 146 mmol/L 135-145 Serum or plasma potassium measurement (moles/volume) 3.2 mmol/L 3.6-5.0 Serum or plasma chloride measurement (moles/volume) 114 mmol/L 98-107 Carbon dioxide 22 mmol/L 21-32 Serum or plasma anion gap determination (moles/volume) 10 mmol/L 5-14 Serum or plasma urea nitrogen measurement (mass/volume ) 2 mg/dL 7-18 Serum or plasma creatinine measurement (mass/volume) 0.52 mg/dL 0.60-1.30 Serum or plasma urea nitrogen/creatinine mass ratio 4 NRG Serum or plasma creatinine measurement w ith calculation of estimated glomerular filtration rate > NRG Serum or plasma glucose measurement (mass/volume) 85 mg/dL 70-105 Serum or plasma calcium measurement (mass/volume) 8.8 mg/dL 8.5-10.1 Complete blood count (CBC) with automate d white blood cell (WBC) differential - 06/14/16 05:50 Blood leukocytes automated count (number/volume) 13.1 10*3/uL 4.3-11.0 Blood erythrocytes automated count (number/volume) 3.81 10*6/uL 4.35-5.85 Venous blood hemoglobin measurement (mass/volume) 10.4 g/dL 11.5-16.0 Blood hematocrit (volume fraction) 33 % 35-52 Automated erythrocyte mean corpuscular volume 87 [ foz_us] 80-99 Automated erythrocyte mean corpuscular h emoglobin (mass per erythrocyte) 27 pg 25-34 Automated erythrocyte mean corpuscular h emoglobin concentration measurement (mass/volume) 31 g/dL 32-36 Automated erythrocyte distribution width ratio 19. 9 % 10.0- 14.5 Automated blood platelet count (count/volume) 495 10*3/uL 130-400 Automated blood platelet mean volume measurement 10.0 [foz_us] 7.4-10.4 Automated blood neutrophils/100 leukocytes 49 % 42-75 Automated blood lymphocytes/100 leukocytes 33 % 12-44 Blood monocytes/100 leukocytes 13 % 0-12 Automated blood eosinophils/100 leukocytes 5 % 0-10 Automated blood basophils/100 leukocytes 1 % 0-10 Blood neutrophils automated count (number/volume) 6.4 10*3 1.8-7.8 Blood lymphocytes automated count (number/volume) 4.3 10*3 1.0-4.0 Blood monocytes automated count (number/volume) 1. 7 10*3 0.0-1.0 Automated eosinophil count 0.7 10*3/uL 0 .0-0.3 Automated blood basophil count (count/volume) 0.1 10*3/uL 0.0-0.1 Whole blood basic metabolic panel - 09/25 05:50 Serum or plasma sodium measurement (moles/volume) 144 mmol/L 135-145 Serum or plasma potassium measurement (moles/volume) 2.8 mmol/L 3.6-5.0 Serum or plasma chloride measurement (moles/volume) 111 mmol/L 98-107 Carbon dioxide 23 mmol/L 21-32 Serum or plasma anion gap determination (moles/volume) 10 mmol/L 5-14 Serum or plasma urea nitrogen measurement (mass/volume ) 3 mg/dL 7-18 Serum or plasma creatinine measurement (mass/volume) 0.57 mg/dL 0.60-1.30 Serum or plasma urea nitrogen/creatinine mass ratio 5 NRG Serum or plasma creatinine measurement w ith calculation of estimated glomerular filtration rate > NRG Serum or plasma glucose measurement (mass/volume) 72 mg/dL 70-105 Serum or plasma calcium measurement (mass/volume) 8.7 mg/dL 8.5-10.1 Complete blood count (CBC) with automate d white blood cell (WBC) differential - 06/15/16 06:35 Blood leukocytes automated count (number/volume) 13.8 10*3/uL 4.3-11.0 Blood erythrocytes automated count (number/volume) 3.93 10*6/uL 4.35-5.85 Venous blood hemoglobin measurement (mass/volume) 10.9 g/dL 11.5-16.0 Blood hematocrit (volume fraction) 34 % 35-52 Automated erythrocyte mean corpuscular volume 87 [ foz_us] 80-99 Automated erythrocyte mean corpuscular h emoglobin (mass per erythrocyte) 28 pg 25-34 Automated erythrocyte mean corpuscular h emoglobin concentration measurement (mass/volume) 32 g/dL 32-36 Automated erythrocyte distribution width ratio 19. 6 % 10.0- 14.5 Automated blood platelet count (count/volume) 487 10*3/uL 130-400 Automated blood platelet mean volume measurement 9.7 [foz_us] 7.4-10.4 Automated blood neutrophils/100 leukocytes 63 % 42-75 Automated blood lymphocytes/100 leukocytes 23 % 12-44 Blood monocytes/100 leukocytes 10 % 0-12 Automated blood eosinophils/100 leukocytes 4 % 0-10 Automated blood basophils/100 leukocytes 1 % 0-10 Blood neutrophils automated count (number/volume) 8.7 10*3 1.8-7.8 Blood lymphocytes automated count (number/volume) 3.1 10*3 1.0-4.0 Blood monocytes automated count (number/volume) 1. 4 10*3 0.0-1.0 Automated eosinophil count 0.5 10*3/uL 0 .0-0.3 Automated blood basophil count (count/volume) 0.1 10*3/uL 0.0-0.1 Whole blood basic metabolic panel - 10/26 06:35 Serum or plasma sodium measurement (moles/volume) 144 mmol/L 135-145 Serum or plasma potassium measurement (moles/volume) 3.2 mmol/L 3.6-5.0 Serum or plasma chloride measurement (moles/volume) 111 mmol/L 98-107 Carbon dioxide 25 mmol/L 21-32 Serum or plasma anion gap determination (moles/volume) 8 mmol/L 5-14 Serum or plasma urea nitrogen measurement (mass/volume ) 2 mg/dL 7-18 Serum or plasma creatinine measurement (mass/volume) 0.59 mg/dL 0.60-1.30 Serum or plasma urea nitrogen/creatinine mass ratio 3 NRG Serum or plasma creatinine measurement w ith calculation of estimated glomerular filtration rate > NRG Serum or plasma glucose measurement (mass/volume) 80 mg/dL 70-105 Serum or plasma calcium measurement (mass/volume) 8.4 mg/dL 8.5-10.1 Complete blood count (CBC) with automate d white blood cell (WBC) differential - 06/16/16 05:24 Blood leukocytes automated count (number/volume) 14.1 10*3/uL 4.3-11.0 Blood erythrocytes automated count (number/volume) 3.77 10*6/uL 4.35-5.85 Venous blood hemoglobin measurement (mass/volume) 10.5 g/dL 11.5-16.0 Blood hematocrit (volume fraction) 33 % 35-52 Automated erythrocyte mean corpuscular volume 88 [ foz_us] 80-99 Automated erythrocyte mean corpuscular h emoglobin (mass per erythrocyte) 28 pg 25-34 Automated erythrocyte mean corpuscular h emoglobin concentration measurement (mass/volume) 32 g/dL 32-36 Automated erythrocyte distribution width ratio 19. 8 % 10.0- 14.5 Automated blood platelet count (count/volume) 460 10*3/uL 130-400 Automated blood platelet mean volume measurement 10.3 [foz_us] 7.4-10.4 Automated blood neutrophils/100 leukocytes 52 % 42-75 Automated blood lymphocytes/100 leukocytes 30 % 12-44 Blood monocytes/100 leukocytes 13 % 0-12 Automated blood eosinophils/100 leukocytes 4 % 0-10 Automated blood basophils/100 leukocytes 1 % 0-10 Blood neutrophils automated count (number/volume) 7.4 10*3 1.8-7.8 Blood lymphocytes automated count (number/volume) 4.2 10*3 1.0-4.0 Blood monocytes automated count (number/volume) 1. 9 10*3 0.0-1.0 Automated eosinophil count 0.6 10*3/uL 0 .0-0.3 Automated blood basophil count (count/volume) 0.1 10*3/uL 0.0-0.1 Whole blood basic metabolic panel - 12/0 16 05:24 Serum or plasma sodium measurement (moles/volume) 143 mmol/L 135-145 Serum or plasma potassium measurement (moles/volume) 3.5 mmol/L 3.6-5.0 Serum or plasma chloride measurement (moles/volume) 109 mmol/L 98-107 Carbon dioxide 24 mmol/L 21-32 Serum or plasma anion gap determination (moles/volume) 10 mmol/L 5-14 Serum or plasma urea nitrogen measurement (mass/volume ) 4 mg/dL 7-18 Serum or plasma creatinine measurement (mass/volume) 0.55 mg/dL 0.60-1.30 Serum or plasma urea nitrogen/creatinine mass ratio 7 NRG Serum or plasma creatinine measurement w ith calculation of estimated glomerular filtration rate > NRG Serum or plasma glucose measurement (mass/volume) 74 mg/dL 70-105 Serum or plasma calcium measurement (mass/volume) 8.5 mg/dL 8.5-10.1 Complete blood count (CBC) with automate d white blood cell (WBC) differential - 07/22/16 10:57 Blood leukocytes automated count (number/volume) 19.1 10*3/uL 4.3-11.0 Blood erythrocytes automated count (number/volume) 4.64 10*6/uL 4.35-5.85 Venous blood hemoglobin measurement (mass/volume) 12.7 g/dL 11.5-16.0 Blood hematocrit (volume fraction) 40 % 35-52 Automated erythrocyte mean corpuscular volume 87 [ foz_us] 80-99 Automated erythrocyte mean corpuscular h emoglobin (mass per erythrocyte) 27 pg 25-34 Automated erythrocyte mean corpuscular h emoglobin concentration measurement (mass/volume) 32 g/dL 32-36 Automated erythrocyte distribution width ratio 16. 7 % 10.0- 14.5 Automated blood platelet count (count/volume) 557 10*3/uL 130-400 Automated blood platelet mean volume measurement 10.0 [foz_us] 7.4-10.4 Automated blood neutrophils/100 leukocytes 81 % 42-75 Automated blood lymphocytes/100 leukocytes 11 % 12-44 Blood monocytes/100 leukocytes 7 % 0-12 Automated blood eosinophils/100 leukocytes 1 % 0-10 Automated blood basophils/100 leukocytes 0 % 0-10 Blood neutrophils automated count (number/volume) 15.4 10*3 1.8-7.8 Blood lymphocytes automated count (number/volume) 2.2 10*3 1.0-4.0 Blood monocytes automated count (number/volume) 1. 4 10*3 0.0-1.0 Automated eosinophil count 0.1 10*3/uL 0 .0-0.3 Automated blood basophil count (count/volume) 0.0 10*3/uL 0.0-0.1 Blood manual differential performed dete ction - 07/22/16 10:57 Blood monocytes/100 leukocytes 5 % NRG Manual blood segmented neutrophils/100 leukocytes 77 % NRG Blood band neutrophils/100 leukocytes 7 % NRG Manual blood lymphocytes/100 leukocytes 10 % NRG Manual eosinophils/100 leukocytes in nose 1 % NRG Manual blood basophils/100 leukocytes 0 % NRG Blood anisocytosis detection by light microscopy S LIGHT NRG Comprehensive metabolic panel - 07/22/16 12:00 Serum or plasma sodium measurement (moles/volume) 138 mmol/L 135-145 Serum or plasma potassium measurement (moles/volume) 4.2 mmol/L 3.6-5.0 Serum or plasma chloride measurement (moles/volume) 104 mmol/L 98-107 Carbon dioxide 26 mmol/L 21-32 Serum or plasma anion gap determination (moles/volume) 8 mmol/L 5-14 Serum or plasma urea nitrogen measurement (mass/volume ) 17 mg/dL 7-18 Serum or plasma creatinine measurement (mass/volume) 0.75 mg/dL 0.60-1.30 Serum or plasma urea nitrogen/creatinine mass ratio 23 NRG Serum or plasma creatinine measurement w ith calculation of estimated glomerular filtration rate > NRG Serum or plasma glucose measurement (mass/volume) 106 mg/dL 70-105 Serum or plasma calcium measurement (mass/volume) 9.2 mg/dL 8.5-10.1 Serum or plasma total bilirubin measurement (mass/volu me) 0.8 mg/dL 0.1-1.0 Serum or plasma alkaline phosphatase shiv surement (enzymatic activity/volume) 199 U/L 40-136 Serum or plasma aspartate aminotransfera se measurement (enzymatic activity/volume) 185 U/L 5-34 Serum or plasma alanine aminotransferase measurement (enzymatic activity/volume) 160 U/L 0-55 Serum or plasma protein measurement (mass/volume) 8.0 g/dL 6.4-8.2 Serum or plasma albumin measurement (mass/volume) 3.1 g/dL 3.2-4.5 Lipase - 07/22/16 12:00 Lipase < U/L 8-78 Complete urinalysis with reflex to cultu re - 07/22/16 12:45 Urine color determination YELLOW NRG Urine clarity determination CLEAR NR G Urine pH measurement by test strip 5 5-9 Specific gravity of urine by test strip 1.020 1.016-1.022 Urine protein assay by test strip, semi-quantitative 1+ NEGATIVE Urine glucose detection by automated test strip NE GATIVE NEGATIVE Erythrocytes detection in urine sediment by light micr oscopy NEGATIVE NEGATIVE Urine ketones detection by automated test strip 1+ NEGATIVE Urine nitrite detection by test strip NEGATIVE NEGATIVE Urine total bilirubin detection by test strip NEGA TIVE NEGATIVE Urine urobilinogen measurement by automated test strip (mass/volume) 1 mg/dL NORMAL Urine leukocyte esterase detection by dipstick 1+ NEGATIVE Automated urine sediment erythrocyte cou nt by microscopy (number/high power field) NONE NRG Automated urine sediment leukocyte count by microscopy (number/high power field) RARE NRG Bacteria detection in urine sediment by light microsco py TRACE NRG Squamous epithelial cells detection in u rine sediment by light microscopy 0-2 NRG Crystals detection in urine sediment by light microsco py NONE NRG Casts detection in urine sediment by light microscopy NONE NRG Mucus detection in urine sediment by light microscopy SMALL NRG Complete urinalysis with reflex to culture NO NRG Bacterial blood culture - 07/22/16 13:40 Bacterial blood culture NG NRG Bacterial blood culture - 07/22/16 13:47 Bacterial blood culture NG NRG Blood lactic acid measurement (moles/vol ume) - 07/22/16 14:03 Blood lactic acid measurement (moles/volume) 0.9 m mol/L 0.5- 2.0 C DIFFICILE AG + TOXIN A/B. - 07/23/16 0 4:35 CALL POSITIVES (F1 HELP) CALLED TO CINTHIA RIZVI 8:25 BY Domenica MULTANI NR SPECIAL CONTACT SPECIAL CONTACT PRECAUTIONS NEEDED NRG RESULTS POSITIVE FOR ANTIGEN AND TOXIN A/B NRG Complete blood count (CBC) with automate d white blood cell (WBC) differential - 07/23/16 04:40 Blood leukocytes automated count (number/volume) 18.2 10*3/uL 4.3-11.0 Blood erythrocytes automated count (number/volume) 4.40 10*6/uL 4.35-5.85 Venous blood hemoglobin measurement (mass/volume) 12.0 g/dL 11.5-16.0 Blood hematocrit (volume fraction) 38 % 35-52 Automated erythrocyte mean corpuscular volume 86 [ foz_us] 80-99 Automated erythrocyte mean corpuscular h emoglobin (mass per erythrocyte) 27 pg 25-34 Automated erythrocyte mean corpuscular h emoglobin concentration measurement (mass/volume) 32 g/dL 32-36 Automated erythrocyte distribution width ratio 16. 5 % 10.0- 14.5 Automated blood platelet count (count/volume) 509 10*3/uL 130-400 Automated blood platelet mean volume measurement 9.4 [foz_us] 7.4-10.4 Automated blood neutrophils/100 leukocytes 76 % 42-75 Automated blood lymphocytes/100 leukocytes 13 % 12-44 Blood monocytes/100 leukocytes 9 % 0-12 Automated blood eosinophils/100 leukocytes 1 % 0-10 Automated blood basophils/100 leukocytes 0 % 0-10 Blood neutrophils automated count (number/volume) 13.9 10*3 1.8-7.8 Blood lymphocytes automated count (number/volume) 2.4 10*3 1.0-4.0 Blood monocytes automated count (number/volume) 1. 6 10*3 0.0-1.0 Automated eosinophil count 0.2 10*3/uL 0 .0-0.3 Automated blood basophil count (count/volume) 0.0 10*3/uL 0.0-0.1 Comprehensive metabolic panel - 07/23/16 04:40 Serum or plasma sodium measurement (moles/volume) 138 mmol/L 135-145 Serum or plasma potassium measurement (moles/volume) 3.8 mmol/L 3.6-5.0 Serum or plasma chloride measurement (moles/volume) 105 mmol/L 98-107 Carbon dioxide 22 mmol/L 21-32 Serum or plasma anion gap determination (moles/volume) 11 mmol/L 5-14 Serum or plasma urea nitrogen measurement (mass/volume ) 11 mg/dL 7-18 Serum or plasma creatinine measurement (mass/volume) 0.64 mg/dL 0.60-1.30 Serum or plasma urea nitrogen/creatinine mass ratio 17 NRG Serum or plasma creatinine measurement w ith calculation of estimated glomerular filtration rate > NRG Serum or plasma glucose measurement (mass/volume) 97 mg/dL 70-105 Serum or plasma calcium measurement (mass/volume) 9.0 mg/dL 8.5-10.1 Serum or plasma total bilirubin measurement (mass/volu me) 0.7 mg/dL 0.1-1.0 Serum or plasma alkaline phosphatase shiv surement (enzymatic activity/volume) 163 U/L 40-136 Serum or plasma aspartate aminotransfera se measurement (enzymatic activity/volume) 78 U/L 5-34 Serum or plasma alanine aminotransferase measurement (enzymatic activity/volume) 106 U/L 0-55 Serum or plasma protein measurement (mass/volume) 7.9 g/dL 6.4-8.2 Serum or plasma albumin measurement (mass/volume) 2.9 g/dL 3.2-4.5 Blood CBC with ordered manual differenti al panel - 07/25/16 06:00 Blood leukocytes automated count (number/volume) 13.9 10*3/uL 4.3-11.0 Blood erythrocytes automated count (number/volume) 4.11 10*6/uL 4.35-5.85 Venous blood hemoglobin measurement (mass/volume) 11.2 g/dL 11.5-16.0 Blood hematocrit (volume fraction) 35 % 35-52 Automated erythrocyte mean corpuscular volume 84 [ foz_us] 80-99 Automated erythrocyte mean corpuscular h emoglobin (mass per erythrocyte) 27 pg 25-34 Automated erythrocyte mean corpuscular h emoglobin concentration measurement (mass/volume) 32 g/dL 32-36 Automated erythrocyte distribution width ratio 16. 1 % 10.0- 14.5 Automated blood platelet count (count/volume) 532 10*3/uL 130-400 Automated blood platelet mean volume measurement 9.6 [foz_us] 7.4-10.4 Automated blood neutrophils/100 leukocytes 68 % 42-75 Automated blood lymphocytes/100 leukocytes 20 % 12-44 Blood monocytes/100 leukocytes 7 % NRG Automated blood eosinophils/100 leukocytes 0 % 0-10 Automated blood basophils/100 leukocytes 0 % 0-10 Blood neutrophils automated count (number/volume) 9.5 10*3 1.8-7.8 Blood lymphocytes automated count (number/volume) 2.8 10*3 1.0-4.0 Blood monocytes automated count (number/volume) 1. 5 10*3 0.0-1.0 Automated eosinophil count 0.1 10*3/uL 0 .0-0.3 Automated blood basophil count (count/volume) 0.1 10*3/uL 0.0-0.1 Manual blood segmented neutrophils/100 leukocytes 76 % NRG Blood band neutrophils/100 leukocytes 0 % NRG Manual blood lymphocytes/100 leukocytes 17 % NRG Manual eosinophils/100 leukocytes in nose 0 % NRG Manual blood basophils/100 leukocytes 0 % NRG Blood anisocytosis detection by light microscopy S LIGHT NRG Comprehensive metabolic panel - 07/25/16 06:00 Serum or plasma sodium measurement (moles/volume) 140 mmol/L 135-145 Serum or plasma potassium measurement (moles/volume) 3.1 mmol/L 3.6-5.0 Serum or plasma chloride measurement (moles/volume) 106 mmol/L 98-107 Carbon dioxide 21 mmol/L 21-32 Serum or plasma anion gap determination (moles/volume) 13 mmol/L 5-14 Serum or plasma urea nitrogen measurement (mass/volume ) 9 mg/dL 7-18 Serum or plasma creatinine measurement (mass/volume) 0.60 mg/dL 0.60-1.30 Serum or plasma urea nitrogen/creatinine mass ratio 15 NRG Serum or plasma creatinine measurement w ith calculation of estimated glomerular filtration rate > NRG Serum or plasma glucose measurement (mass/volume) 80 mg/dL 70-105 Serum or plasma calcium measurement (mass/volume) 9.0 mg/dL 8.5-10.1 Serum or plasma total bilirubin measurement (mass/volu me) 0.4 mg/dL 0.1-1.0 Serum or plasma alkaline phosphatase shiv surement (enzymatic activity/volume) 112 U/L 40-136 Serum or plasma aspartate aminotransfera se measurement (enzymatic activity/volume) 30 U/L 5-34 Serum or plasma alanine aminotransferase measurement (enzymatic activity/volume) 51 U/L 0-55 Serum or plasma protein measurement (mass/volume) 7.3 g/dL 6.4-8.2 Serum or plasma albumin measurement (mass/volume) 2.9 g/dL 3.2-4.5 Urine Culture, Routine - 11/20/17 11:46 Urine Culture, Routine Note Complete blood count (CBC) with automate d white blood cell (WBC) differential - 12/17/16 10:20 Blood leukocytes automated count (number/volume) 10.7 10*3/uL 4.3-11.0 Blood erythrocytes automated count (number/volume) 4.43 10*6/uL 4.35-5.85 Venous blood hemoglobin measurement (mass/volume) 13.3 g/dL 11.5-16.0 Blood hematocrit (volume fraction) 42 % 35-52 Automated erythrocyte mean corpuscular volume 94 [ foz_us] 80-99 Automated erythrocyte mean corpuscular h emoglobin (mass per erythrocyte) 30 pg 25-34 Automated erythrocyte mean corpuscular h emoglobin concentration measurement (mass/volume) 32 g/dL 32-36 Automated erythrocyte distribution width ratio 14. 7 % 10.0- 14.5 Automated blood platelet count (count/volume) 378 10*3/uL 130-400 Automated blood platelet mean volume measurement 9.5 [foz_us] 7.4-10.4 Automated blood neutrophils/100 leukocytes 48 % 42-75 Automated blood lymphocytes/100 leukocytes 36 % 12-44 Blood monocytes/100 leukocytes 12 % 0-12 Automated blood eosinophils/100 leukocytes 4 % 0-10 Automated blood basophils/100 leukocytes 1 % 0-10 Blood neutrophils automated count (number/volume) 5.1 10*3 1.8-7.8 Blood lymphocytes automated count (number/volume) 3.8 10*3 1.0-4.0 Blood monocytes automated count (number/volume) 1. 2 10*3 0.0-1.0 Automated eosinophil count 0.4 10*3/uL 0 .0-0.3 Automated blood basophil count (count/volume) 0.1 10*3/uL 0.0-0.1 PT panel in platelet poor plasma by coag ulation assay - 12/17/16 10:20 Prothrombin time (PT) in platelet poor plasma by coagu lation assay 12.0 s 12.2-14.7 INR in platelet poor plasma or blood by coagulation as say 0.9 0.8-1.4 Erythrocyte sedimentation rate by jaciel gren method - 12/17/16 10:20 Erythrocyte sedimentation rate by westergren method 24 mm 0- 30 Comprehensive metabolic panel - 12/17/16 10:20 Serum or plasma sodium measurement (moles/volume) 141 mmol/L 135-145 Serum or plasma potassium measurement (moles/volume) 4.1 mmol/L 3.6-5.0 Serum or plasma chloride measurement (moles/volume) 105 mmol/L 98-107 Carbon dioxide 28 mmol/L 21-32 Serum or plasma anion gap determination (moles/volume) 8 mmol/L 5-14 Serum or plasma urea nitrogen measurement (mass/volume ) 19 mg/dL 7-18 Serum or plasma creatinine measurement (mass/volume) 0.74 mg/dL 0.60-1.30 Serum or plasma urea nitrogen/creatinine mass ratio 26 NRG Serum or plasma creatinine measurement w ith calculation of estimated glomerular filtration rate > NRG Serum or plasma glucose measurement (mass/volume) 92 mg/dL 70-105 Serum or plasma calcium measurement (mass/volume) 9.3 mg/dL 8.5-10.1 Serum or plasma total bilirubin measurement (mass/volu me) 0.8 mg/dL 0.1-1.0 Serum or plasma alkaline phosphatase shiv surement (enzymatic activity/volume) 93 U/L 40-136 Serum or plasma aspartate aminotransfera se measurement (enzymatic activity/volume) 45 U/L 5-34 Serum or plasma alanine aminotransferase measurement (enzymatic activity/volume) 36 U/L 0-55 Serum or plasma protein measurement (mass/volume) 8.0 g/dL 6.4-8.2 Serum or plasma albumin measurement (mass/volume) 3.8 g/dL 3.2-4.5 Blood type T Indirect antibody screen [facility] - 12/17/16 10:20 ABO+Rh group AN NRG Blood group antibody screen NEGATIVE NR G Methicillin resistant Staphylococcus aur eus (MRSA) screening culture - 12/17/16 10:25 Methicillin resistant Staphylococcus aureus (MRSA) scr eening culture NEG NRG Complete urinalysis with reflex to cultu re - 12/17/16 10:55 Urine color determination YELLOW NRG Urine clarity determination CLEAR NR G Urine pH measurement by test strip 5 5-9 Specific gravity of urine by test strip 1.020 1.016-1.022 Urine protein assay by test strip, semi-quantitative NEGATIVE NEGATIVE Urine glucose detection by automated test strip NE GATIVE NEGATIVE Erythrocytes detection in urine sediment by light micr oscopy 1+ NEGATIVE Urine ketones detection by automated test strip NE GATIVE NEGATIVE Urine nitrite detection by test strip NEGATIVE NEGATIVE Urine total bilirubin detection by test strip NEGA TIVE NEGATIVE Urine urobilinogen measurement by automated test strip (mass/volume) NORMAL NORMAL Urine leukocyte esterase detection by dipstick 1+ NEGATIVE Automated urine sediment erythrocyte cou nt by microscopy (number/high power field) NONE NRG Automated urine sediment leukocyte count by microscopy (number/high power field) [HPF] NRG Bacteria detection in urine sediment by light microsco py FEW NRG Squamous epithelial cells detection in u rine sediment by light microscopy 2-5 NRG Crystals detection in urine sediment by light microsco py NONE NRG Casts detection in urine sediment by light microscopy NONE NRG Mucus detection in urine sediment by light microscopy NEGATIVE NRG Complete urinalysis with reflex to culture NO NRG Blood type T Indirect antibody screen [facility] - 12/24/16 06:13 ABO+Rh group AN NRG Transfusion band number [id number] NR Blood group antibody screen NEGATIVE NR G Whole blood hemoglobin and hematocrit [facility] - 12/25/16 06:09 Venous blood hemoglobin measurement (mass/volume) 10.7 g/dL 11.5-16.0 Blood hematocrit (volume fraction) 34 % 35-52 Blood CBC with ordered manual differenti al panel - 12/25/16 12:35 Blood leukocytes automated count (number/volume) 19.4 10*3/uL 4.3-11.0 Blood erythrocytes automated count (number/volume) 3.64 10*6/uL 4.35-5.85 Venous blood hemoglobin measurement (mass/volume) 11.0 g/dL 11.5-16.0 Blood hematocrit (volume fraction) 35 % 35-52 Automated erythrocyte mean corpuscular volume 96 [ foz_us] 80-99 Automated erythrocyte mean corpuscular h emoglobin (mass per erythrocyte) 30 pg 25-34 Automated erythrocyte mean corpuscular h emoglobin concentration measurement (mass/volume) 32 g/dL 32-36 Automated erythrocyte distribution width ratio 14. 9 % 10.0- 14.5 Automated blood platelet count (count/volume) 344 10*3/uL 130-400 Automated blood platelet mean volume measurement 9.7 [foz_us] 7.4-10.4 Automated blood neutrophils/100 leukocytes 67 % 42-75 Automated blood lymphocytes/100 leukocytes 21 % 12-44 Blood monocytes/100 leukocytes 6 % NRG Automated blood eosinophils/100 leukocytes 0 % 0-10 Automated blood basophils/100 leukocytes 0 % 0-10 Blood neutrophils automated count (number/volume) 13.1 10*3 1.8-7.8 Blood lymphocytes automated count (number/volume) 4.1 10*3 1.0-4.0 Blood monocytes automated count (number/volume) 2. 3 10*3 0.0-1.0 Automated eosinophil count 0.0 10*3/uL 0 .0-0.3 Automated blood basophil count (count/volume) 0.0 10*3/uL 0.0-0.1 Manual blood segmented neutrophils/100 leukocytes 73 % NRG Manual blood lymphocytes/100 leukocytes 21 % NRG Blood basophilic stippling detection by light microsco py SLIGHT NRG Comprehensive metabolic panel - 12/25/16 12:35 Serum or plasma sodium measurement (moles/volume) 143 mmol/L 135-145 Serum or plasma potassium measurement (moles/volume) 4.0 mmol/L 3.6-5.0 Serum or plasma chloride measurement (moles/volume) 110 mmol/L 98-107 Carbon dioxide 25 mmol/L 21-32 Serum or plasma anion gap determination (moles/volume) 8 mmol/L 5-14 Serum or plasma urea nitrogen measurement (mass/volume ) 16 mg/dL 7-18 Serum or plasma creatinine measurement (mass/volume) 0.69 mg/dL 0.60-1.30 Serum or plasma urea nitrogen/creatinine mass ratio 23 0-20 Serum or plasma creatinine measurement w ith calculation of estimated glomerular filtration rate > [facility] Serum or plasma glucose measurement (mass/volume) 111 mg/dL 70-105 Serum or plasma calcium measurement (mass/volume) 9.2 mg/dL 8.5-10.1 Serum or plasma total bilirubin measurement (mass/volu me) 0.7 mg/dL 0.1-1.0 Serum or plasma alkaline phosphatase shiv surement (enzymatic activity/volume) 87 U/L 40-136 Serum or plasma aspartate aminotransfera se measurement (enzymatic activity/volume) 31 U/L 5-34 Serum or plasma alanine aminotransferase measurement (enzymatic activity/volume) 31 U/L 0-55 Serum or plasma protein measurement (mass/volume) 6.7 g/dL 6.4-8.2 Serum or plasma albumin measurement (mass/volume) 3.6 g/dL 3.2-4.5 Complete blood count (CBC) with automate d white blood cell (WBC) differential - 12/26/16 06:55 Blood leukocytes automated count (number/volume) 14.5 10*3/uL 4.3-11.0 Blood erythrocytes automated count (number/volume) 3.42 10*6/uL 4.35-5.85 Venous blood hemoglobin measurement (mass/volume) 10.3 g/dL 11.5-16.0 Blood hematocrit (volume fraction) 33 % 35-52 Automated erythrocyte mean corpuscular volume 97 [ foz_us] 80-99 Automated erythrocyte mean corpuscular h emoglobin (mass per erythrocyte) 30 pg 25-34 Automated erythrocyte mean corpuscular h emoglobin concentration measurement (mass/volume) 31 g/dL 32-36 Automated erythrocyte distribution width ratio 14. 9 % 10.0- 14.5 Automated blood platelet count (count/volume) 293 10*3/uL 130-400 Automated blood platelet mean volume measurement 9.8 [foz_us] 7.4-10.4 Automated blood neutrophils/100 leukocytes 62 % 42-75 Automated blood lymphocytes/100 leukocytes 24 % 12-44 Blood monocytes/100 leukocytes 13 % 0-12 Automated blood eosinophils/100 leukocytes 1 % 0-10 Automated blood basophils/100 leukocytes 1 % 0-10 Blood neutrophils automated count (number/volume) 9.0 10*3 1.8-7.8 Blood lymphocytes automated count (number/volume) 3.5 10*3 1.0-4.0 Blood monocytes automated count (number/volume) 1. 8 10*3 0.0-1.0 Automated eosinophil count 0.1 10*3/uL 0 .0-0.3 Automated blood basophil count (count/volume) 0.1 10*3/uL 0.0-0.1 Whole blood basic metabolic panel - 12/11 12/27 06:55 Serum or plasma sodium measurement (moles/volume) 140 mmol/L 135-145 Serum or plasma potassium measurement (moles/volume) 3.8 mmol/L 3.6-5.0 Serum or plasma chloride measurement (moles/volume) 107 mmol/L 98-107 Carbon dioxide 22 mmol/L 21-32 Serum or plasma anion gap determination (moles/volume) 11 mmol/L 5-14 Serum or plasma urea nitrogen measurement (mass/volume ) 13 mg/dL 7-18 Serum or plasma creatinine measurement (mass/volume) 0.57 mg/dL 0.60-1.30 Serum or plasma urea nitrogen/creatinine mass ratio 23 0-20 Serum or plasma creatinine measurement w ith calculation of estimated glomerular filtration rate > NRG Serum or plasma glucose measurement (mass/volume) 101 mg/dL 70-105 Serum or plasma calcium measurement (mass/volume) 9.2 mg/dL 8.5-10.1 Complete blood count (CBC) with automate d white blood cell (WBC) differential - 12/27/16 05:23 Blood leukocytes automated count (number/volume) 16.8 10*3/uL 4.3-11.0 Blood erythrocytes automated count (number/volume) 3.23 10*6/uL 4.35-5.85 Venous blood hemoglobin measurement (mass/volume) 9.7 g/dL 11.5-16.0 Blood hematocrit (volume fraction) 30 % 35-52 Automated erythrocyte mean corpuscular volume 93 [ foz_us] 80-99 Automated erythrocyte mean corpuscular h emoglobin (mass per erythrocyte) 30 pg 25-34 Automated erythrocyte mean corpuscular h emoglobin concentration measurement (mass/volume) 32 g/dL 32-36 Automated erythrocyte distribution width ratio 14. 0 % 10.0- 14.5 Automated blood platelet count (count/volume) 288 10*3/uL 130-400 Automated blood platelet mean volume measurement 9.8 [foz_us] 7.4-10.4 Automated blood neutrophils/100 leukocytes 73 % 42-75 Automated blood lymphocytes/100 leukocytes 15 % 12-44 Blood monocytes/100 leukocytes 11 % 0-12 Automated blood eosinophils/100 leukocytes 0 % 0-10 Automated blood basophils/100 leukocytes 0 % 0-10 Blood neutrophils automated count (number/volume) 12.4 10*3 1.8-7.8 Blood lymphocytes automated count (number/volume) 2.6 10*3 1.0-4.0 Blood monocytes automated count (number/volume) 1. 9 10*3 0.0-1.0 Automated eosinophil count 0.0 10*3/uL 0 .0-0.3 Automated blood basophil count (count/volume) 0.0 10*3/uL 0.0-0.1 Whole blood basic metabolic panel - 12/11 01/26 05:23 Serum or plasma sodium measurement (moles/volume) 139 mmol/L 135-145 Serum or plasma potassium measurement (moles/volume) 3.2 mmol/L 3.6-5.0 Serum or plasma chloride measurement (moles/volume) 102 mmol/L 98-107 Carbon dioxide 22 mmol/L 21-32 Serum or plasma anion gap determination (moles/volume) 15 mmol/L 5-14 Serum or plasma urea nitrogen measurement (mass/volume ) 11 mg/dL 7-18 Serum or plasma creatinine measurement (mass/volume) 0.59 mg/dL 0.60-1.30 Serum or plasma urea nitrogen/creatinine mass ratio 19 0-20 Serum or plasma creatinine measurement w ith calculation of estimated glomerular filtration rate > NRG Serum or plasma glucose measurement (mass/volume) 100 mg/dL 70-105 Serum or plasma calcium measurement (mass/volume) 9.2 mg/dL 8.5-10.1 Complete blood count (CBC) with automate d white blood cell (WBC) differential - 12/27/16 18:35 Blood leukocytes automated count (number/volume) 17.7 10*3/uL 4.3-11.0 Blood erythrocytes automated count (number/volume) 3.46 10*6/uL 4.35-5.85 Venous blood hemoglobin measurement (mass/volume) 10.5 g/dL 11.5-16.0 Blood hematocrit (volume fraction) 32 % 35-52 Automated erythrocyte mean corpuscular volume 93 [ foz_us] 80-99 Automated erythrocyte mean corpuscular h emoglobin (mass per erythrocyte) 30 pg 25-34 Automated erythrocyte mean corpuscular h emoglobin concentration measurement (mass/volume) 33 g/dL 32-36 Automated erythrocyte distribution width ratio 14. 2 % 10.0- 14.5 Automated blood platelet count (count/volume) 328 10*3/uL 130-400 Automated blood platelet mean volume measurement 9.9 [foz_us] 7.4-10.4 Automated blood neutrophils/100 leukocytes 68 % 42-75 Automated blood lymphocytes/100 leukocytes 20 % 12-44 Blood monocytes/100 leukocytes 12 % 0-12 Automated blood eosinophils/100 leukocytes 0 % 0-10 Automated blood basophils/100 leukocytes 0 % 0-10 Blood neutrophils automated count (number/volume) 12.1 10*3 1.8-7.8 Blood lymphocytes automated count (number/volume) 3.5 10*3 1.0-4.0 Blood monocytes automated count (number/volume) 2. 1 10*3 0.0-1.0 Automated eosinophil count 0.0 10*3/uL 0 .0-0.3 Automated blood basophil count (count/volume) 0.0 10*3/uL 0.0-0.1 Comprehensive metabolic panel - 12/27/16 18:35 Serum or plasma sodium measurement (moles/volume) 139 mmol/L 135-145 Serum or plasma potassium measurement (moles/volume) 3.6 mmol/L 3.6-5.0 Serum or plasma chloride measurement (moles/volume) 103 mmol/L 98-107 Carbon dioxide 19 mmol/L 21-32 Serum or plasma anion gap determination (moles/volume) 17 mmol/L 5-14 Serum or plasma urea nitrogen measurement (mass/volume ) 14 mg/dL 7-18 Serum or plasma creatinine measurement (mass/volume) 0.68 mg/dL 0.60-1.30 Serum or plasma urea nitrogen/creatinine mass ratio 21 0-20 Serum or plasma creatinine measurement w ith calculation of estimated glomerular filtration rate > NRG Serum or plasma glucose measurement (mass/volume) 145 mg/dL 70-105 Serum or plasma calcium measurement (mass/volume) 9.4 mg/dL 8.5-10.1 Serum or plasma total bilirubin measurement (mass/volu me) 2.0 mg/dL 0.1-1.0 Serum or plasma alkaline phosphatase shiv surement (enzymatic activity/volume) 110 U/L 40-136 Serum or plasma aspartate aminotransfera se measurement (enzymatic activity/volume) 40 U/L 5-34 Serum or plasma alanine aminotransferase measurement (enzymatic activity/volume) 77 U/L 0-55 Serum or plasma protein measurement (mass/volume) 7.6 g/dL 6.4-8.2 Serum or plasma albumin measurement (mass/volume) 3.5 g/dL 3.2-4.5 Serum or plasma troponin i.cardiac measu rement (mass/volume) - 12/27/16 18:35 Serum or plasma troponin i.cardiac measurement (mass/v olume) < ng/mL <0.30 Blood manual differential performed dete ction - 12/27/16 18:35 Blood monocytes/100 leukocytes 5 % NRG Manual blood segmented neutrophils/100 leukocytes 77 % NRG Manual blood lymphocytes/100 leukocytes 18 % NRG Blood smudge cells detection by light microscopy S LIGHT NRG Blood erythrocyte morphology finding identification NORMAL NRG Blood hypochromia detection by light microscopy SL IGHT NRG Whole blood basic metabolic panel - 12/11 02/26 05:47 Serum or plasma sodium measurement (moles/volume) 139 mmol/L 135-145 Serum or plasma potassium measurement (moles/volume) 3.3 mmol/L 3.6-5.0 Serum or plasma chloride measurement (moles/volume) 103 mmol/L 98-107 Carbon dioxide 21 mmol/L 21-32 Serum or plasma anion gap determination (moles/volume) 15 mmol/L 5-14 Serum or plasma urea nitrogen measurement (mass/volume ) 15 mg/dL 7-18 Serum or plasma creatinine measurement (mass/volume) 0.60 mg/dL 0.60-1.30 Serum or plasma urea nitrogen/creatinine mass ratio 25 0-20 Serum or plasma creatinine measurement w ith calculation of estimated glomerular filtration rate > NRG Serum or plasma glucose measurement (mass/volume) 96 mg/dL 70-105 Serum or plasma calcium measurement (mass/volume) 9.4 mg/dL 8.5-10.1 Complete blood count (CBC) with automate d white blood cell (WBC) differential - 12/28/16 05:47 Blood leukocytes automated count (number/volume) 15.8 10*3/uL 4.3-11.0 Blood erythrocytes automated count (number/volume) 3.34 10*6/uL 4.35-5.85 Venous blood hemoglobin measurement (mass/volume) 10.2 g/dL 11.5-16.0 Blood hematocrit (volume fraction) 31 % 35-52 Automated erythrocyte mean corpuscular volume 93 [ foz_us] 80-99 Automated erythrocyte mean corpuscular h emoglobin (mass per erythrocyte) 31 pg 25-34 Automated erythrocyte mean corpuscular h emoglobin concentration measurement (mass/volume) 33 g/dL 32-36 Automated erythrocyte distribution width ratio 14. 1 % 10.0- 14.5 Automated blood platelet count (count/volume) 308 10*3/uL 130-400 Automated blood platelet mean volume measurement 9.9 [foz_us] 7.4-10.4 Automated blood neutrophils/100 leukocytes 71 % 42-75 Automated blood lymphocytes/100 leukocytes 18 % 12-44 Blood monocytes/100 leukocytes 10 % 0-12 Automated blood eosinophils/100 leukocytes 0 % 0-10 Automated blood basophils/100 leukocytes 0 % 0-10 Blood neutrophils automated count (number/volume) 11.3 10*3 1.8-7.8 Blood lymphocytes automated count (number/volume) 2.9 10*3 1.0-4.0 Blood monocytes automated count (number/volume) 1. 6 10*3 0.0-1.0 Automated eosinophil count 0.0 10*3/uL 0 .0-0.3 Automated blood basophil count (count/volume) 0.0 10*3/uL 0.0-0.1 C DIFFICILE AG + TOXIN A/B. - 12/28/16 1 1:57 RESULTS NEGATIVE FOR ANTIGEN AND TOXIN A/B [facility] Complete blood count (CBC) with automate d white blood cell (WBC) differential - 12/29/16 07:28 Blood leukocytes automated count (number/volume) 13.2 10*3/uL 4.3-11.0 Blood erythrocytes automated count (number/volume) 3.47 10*6/uL 4.35-5.85 Venous blood hemoglobin measurement (mass/volume) 10.5 g/dL 11.5-16.0 Blood hematocrit (volume fraction) 32 % 35-52 Automated erythrocyte mean corpuscular volume 93 [ foz_us] 80-99 Automated erythrocyte mean corpuscular h emoglobin (mass per erythrocyte) 30 pg 25-34 Automated erythrocyte mean corpuscular h emoglobin concentration measurement (mass/volume) 33 g/dL 32-36 Automated erythrocyte distribution width ratio 14. 3 % 10.0- 14.5 Automated blood platelet count (count/volume) 382 10*3/uL 130-400 Automated blood platelet mean volume measurement 9.7 [foz_us] 7.4-10.4 Automated blood neutrophils/100 leukocytes 68 % 42-75 Automated blood lymphocytes/100 leukocytes 21 % 12-44 Blood monocytes/100 leukocytes 10 % 0-12 Automated blood eosinophils/100 leukocytes 0 % 0-10 Automated blood basophils/100 leukocytes 0 % 0-10 Blood neutrophils automated count (number/volume) 9.0 10*3 1.8-7.8 Blood lymphocytes automated count (number/volume) 2.7 10*3 1.0-4.0 Blood monocytes automated count (number/volume) 1. 4 10*3 0.0-1.0 Automated eosinophil count 0.1 10*3/uL 0 .0-0.3 Automated blood basophil count (count/volume) 0.1 10*3/uL 0.0-0.1 Blood blood smear finding identification by light micr oscopy YES [facility] Comprehensive metabolic panel - 12/29/16 07:28 Serum or plasma sodium measurement (moles/volume) 140 mmol/L 135-145 Serum or plasma potassium measurement (moles/volume) 3.1 mmol/L 3.6-5.0 Serum or plasma chloride measurement (moles/volume) 103 mmol/L 98-107 Carbon dioxide 25 mmol/L 21-32 Serum or plasma anion gap determination (moles/volume) 12 mmol/L 5-14 Serum or plasma urea nitrogen measurement (mass/volume ) 13 mg/dL 7-18 Serum or plasma creatinine measurement (mass/volume) 0.60 mg/dL 0.60-1.30 Serum or plasma urea nitrogen/creatinine mass ratio 22 0-20 Serum or plasma creatinine measurement w ith calculation of estimated glomerular filtration rate > NRG Serum or plasma glucose measurement (mass/volume) 84 mg/dL 70-105 Serum or plasma calcium measurement (mass/volume) 9.1 mg/dL 8.5-10.1 Serum or plasma total bilirubin measurement (mass/volu me) 1.7 mg/dL 0.1-1.0 Serum or plasma alkaline phosphatase shiv surement (enzymatic activity/volume) 96 U/L 40-136 Serum or plasma aspartate aminotransfera se measurement (enzymatic activity/volume) 27 U/L 5-34 Serum or plasma alanine aminotransferase measurement (enzymatic activity/volume) 55 U/L 0-55 Serum or plasma protein measurement (mass/volume) 7.5 g/dL 6.4-8.2 Serum or plasma albumin measurement (mass/volume) 3.5 g/dL 3.2-4.5 Complete blood count (CBC) with automate d white blood cell (WBC) differential - 01/06/17 23:31 Blood leukocytes automated count (number/volume) 13.9 10*3/uL 4.3-11.0 Blood erythrocytes automated count (number/volume) 3.41 10*6/uL 4.35-5.85 Venous blood hemoglobin measurement (mass/volume) 10.3 g/dL 11.5-16.0 Blood hematocrit (volume fraction) 33 % 35-52 Automated erythrocyte mean corpuscular volume 96 [ foz_us] 80-99 Automated erythrocyte mean corpuscular h emoglobin (mass per erythrocyte) 30 pg 25-34 Automated erythrocyte mean corpuscular h emoglobin concentration measurement (mass/volume) 32 g/dL 32-36 Automated erythrocyte distribution width ratio 15. 3 % 10.0- 14.5 Automated blood platelet count (count/volume) 595 10*3/uL 130-400 Automated blood platelet mean volume measurement 9.2 [foz_us] 7.4-10.4 Automated blood neutrophils/100 leukocytes 66 % 42-75 Automated blood lymphocytes/100 leukocytes 23 % 12-44 Blood monocytes/100 leukocytes 11 % 0-12 Automated blood eosinophils/100 leukocytes 1 % 0-10 Automated blood basophils/100 leukocytes 0 % 0-10 Blood neutrophils automated count (number/volume) 9.1 10*3 1.8-7.8 Blood lymphocytes automated count (number/volume) 3.2 10*3 1.0-4.0 Blood monocytes automated count (number/volume) 1. 5 10*3 0.0-1.0 Automated eosinophil count 0.1 10*3/uL 0 .0-0.3 Automated blood basophil count (count/volume) 0.0 10*3/uL 0.0-0.1 PT panel in platelet poor plasma by coag ulation assay - 01/06/17 23:31 Prothrombin time (PT) in platelet poor plasma by coagu lation assay 13.8 s 12.2-14.7 INR in platelet poor plasma or blood by coagulation as say 1.1 0.8-1.4 Activated partial thromboplastin time (a PTT) in platelet poor plasma bycoagulation assay - 01/06/17 23:31 Activated partial thromboplastin time (a PTT) in platelet poor plasma bycoagulation assay 33 s 24-35 Comprehensive metabolic panel - 01/06/17 23:31 Serum or plasma sodium measurement (moles/volume) 140 mmol/L 135-145 Serum or plasma potassium measurement (moles/volume) 4.2 mmol/L 3.6-5.0 Serum or plasma chloride measurement (moles/volume) 103 mmol/L 98-107 Carbon dioxide 27 mmol/L 21-32 Serum or plasma anion gap determination (moles/volume) 10 mmol/L 5-14 Serum or plasma urea nitrogen measurement (mass/volume ) 14 mg/dL 7-18 Serum or plasma creatinine measurement (mass/volume) 0.81 mg/dL 0.60-1.30 Serum or plasma urea nitrogen/creatinine mass ratio 17 NRG Serum or plasma creatinine measurement w ith calculation of estimated glomerular filtration rate > NRG Serum or plasma glucose measurement (mass/volume) 113 mg/dL 70-105 Serum or plasma calcium measurement (mass/volume) 9.0 mg/dL 8.5-10.1 Serum or plasma total bilirubin measurement (mass/volu me) 1.1 mg/dL 0.1-1.0 Serum or plasma alkaline phosphatase shiv surement (enzymatic activity/volume) 111 U/L 40-136 Serum or plasma aspartate aminotransfera se measurement (enzymatic activity/volume) 20 U/L 5-34 Serum or plasma alanine aminotransferase measurement (enzymatic activity/volume) 20 U/L 0-55 Serum or plasma protein measurement (mass/volume) 7.8 g/dL 6.4-8.2 Serum or plasma albumin measurement (mass/volume) 3.3 g/dL 3.2-4.5 Magnesium - 01/06/17 23:31 Magnesium 1.7 mg/dL 1.8-2.4 Serum or plasma creatine kinase measurem ent (enzymatic activity/volume) - 01/06/17 23:31 Serum or plasma creatine kinase measurem ent (enzymatic activity/volume) 54 U/L 29-168 Serum or plasma creatine kinase MB measu rement (enzymatic activity/volume) - 01/06/17 23:31 Serum or plasma creatine kinase MB measu rement (enzymatic activity/volume) 0.8 ng/mL <6.6 Serum or plasma troponin i.cardiac measu rement (mass/volume) - 01/06/17 23:31 Serum or plasma troponin i.cardiac measurement (mass/v olume) < ng/mL <0.30 Serum or plasma lithium measurement (mol es/volume) - 01/06/17 23:31 BNP level 183.0 pg/mL <100.0 Bacterial blood culture - 01/06/17 23:31 Bacterial blood culture NG NR Blood lactic acid measurement (moles/vol ume) - 01/06/17 23:33 Blood lactic acid measurement (moles/volume) 0.80 mmol/L 0.50-2.00 Bacterial blood culture - 01/06/17 23:33 Bacterial blood culture NG NR Complete urinalysis with reflex to cultu re - 01/07/17 01:14 Urine color determination YELLOW NRG Urine clarity determination CLEAR NR G Urine pH measurement by test strip 7 5-9 Specific gravity of urine by test strip 1.010 1.016-1.022 Urine protein assay by test strip, semi-quantitative 1+ NEGATIVE Urine glucose detection by automated test strip NE GATIVE NEGATIVE Erythrocytes detection in urine sediment by light micr oscopy NEGATIVE NEGATIVE Urine ketones detection by automated test strip NE GATIVE NEGATIVE Urine nitrite detection by test strip NEGATIVE NEGATIVE Urine total bilirubin detection by test strip NEGA TIVE NEGATIVE Urine urobilinogen measurement by automated test strip (mass/volume) 8 mg/dL NORMAL Urine leukocyte esterase detection by dipstick 1+ NEGATIVE Automated urine sediment erythrocyte cou nt by microscopy (number/high power field) NONE NRG Automated urine sediment leukocyte count by microscopy (number/high power field) RARE NRG Bacteria detection in urine sediment by light microsco py TRACE NRG Squamous epithelial cells detection in u rine sediment by light microscopy 2-5 NRG Crystals detection in urine sediment by light microsco py NONE NRG Casts detection in urine sediment by light microscopy NONE NRG Mucus detection in urine sediment by light microscopy SMALL NRG Complete urinalysis with reflex to culture NO NRG Capillary blood glucose measurement by g lucometer (mass/volume) - 01/07/17 03:05 Capillary blood glucose measurement by glucometer (mas s/volume) 145 mg/dL 70-110 Methicillin resistant Staphylococcus aur eus (MRSA) screening culture - 01/07/17 03:25 Methicillin resistant Staphylococcus aureus (MRSA) scr eening culture NEG NRG Complete blood count (CBC) with automate d white blood cell (WBC) differential - 01/07/17 03:35 Blood leukocytes automated count (number/volume) 13.0 10*3/uL 4.3-11.0 Blood erythrocytes automated count (number/volume) 3.35 10*6/uL 4.35-5.85 Venous blood hemoglobin measurement (mass/volume) 10.1 g/dL 11.5-16.0 Blood hematocrit (volume fraction) 32 % 35-52 Automated erythrocyte mean corpuscular volume 96 [ foz_us] 80-99 Automated erythrocyte mean corpuscular h emoglobin (mass per erythrocyte) 30 pg 25-34 Automated erythrocyte mean corpuscular h emoglobin concentration measurement (mass/volume) 31 g/dL 32-36 Automated erythrocyte distribution width ratio 15. 2 % 10.0- 14.5 Automated blood platelet count (count/volume) 560 10*3/uL 130-400 Automated blood platelet mean volume measurement 9.5 [foz_us] 7.4-10.4 Automated blood neutrophils/100 leukocytes 89 % 42-75 Automated blood lymphocytes/100 leukocytes 9 % 12-44 Blood monocytes/100 leukocytes 2 % 0-12 Automated blood eosinophils/100 leukocytes 0 % 0-10 Automated blood basophils/100 leukocytes 0 % 0-10 Blood neutrophils automated count (number/volume) 11.5 10*3 1.8-7.8 Blood lymphocytes automated count (number/volume) 1.1 10*3 1.0-4.0 Blood monocytes automated count (number/volume) 0. 3 10*3 0.0-1.0 Automated eosinophil count 0.0 10*3/uL 0 .0-0.3 Automated blood basophil count (count/volume) 0.0 10*3/uL 0.0-0.1 Blood lactic acid measurement (moles/vol ume) - 01/07/17 03:35 Blood lactic acid measurement (moles/volume) 0.60 mmol/L 0.50-2.00 Comprehensive metabolic panel - 01/07/17 03:35 Serum or plasma sodium measurement (moles/volume) 143 mmol/L 135-145 Serum or plasma potassium measurement (moles/volume) 3.8 mmol/L 3.6-5.0 Serum or plasma chloride measurement (moles/volume) 108 mmol/L 98-107 Carbon dioxide 25 mmol/L 21-32 Serum or plasma anion gap determination (moles/volume) 10 mmol/L 5-14 Serum or plasma urea nitrogen measurement (mass/volume ) 13 mg/dL 7-18 Serum or plasma creatinine measurement (mass/volume) 0.75 mg/dL 0.60-1.30 Serum or plasma urea nitrogen/creatinine mass ratio 17 NRG Serum or plasma creatinine measurement w ith calculation of estimated glomerular filtration rate > NRG Serum or plasma glucose measurement (mass/volume) 160 mg/dL 70-105 Serum or plasma calcium measurement (mass/volume) 8.7 mg/dL 8.5-10.1 Serum or plasma total bilirubin measurement (mass/volu me) 1.2 mg/dL 0.1-1.0 Serum or plasma alkaline phosphatase shiv surement (enzymatic activity/volume) 104 U/L 40-136 Serum or plasma aspartate aminotransfera se measurement (enzymatic activity/volume) 18 U/L 5-34 Serum or plasma alanine aminotransferase measurement (enzymatic activity/volume) 19 U/L 0-55 Serum or plasma protein measurement (mass/volume) 7.3 g/dL 6.4-8.2 Serum or plasma albumin measurement (mass/volume) 3.0 g/dL 3.2-4.5 Serum or plasma phosphate measurement (m ass/volume) - 01/07/17 03:35 Serum or plasma phosphate measurement (mass/volume) 3.7 mg/dL 2.3-4.7 Magnesium - 01/07/17 03:35 Magnesium 1.7 mg/dL 1.8-2.4 PT panel in platelet poor plasma by coag ulation assay - 01/07/17 03:35 Prothrombin time (PT) in platelet poor plasma by coagu lation assay 14.4 s 12.2-14.7 INR in platelet poor plasma or blood by coagulation as say 1.2 0.8-1.4 Activated partial thromboplastin time (a PTT) in platelet poor plasma bycoagulation assay - 01/07/17 03:35 Activated partial thromboplastin time (a PTT) in platelet poor plasma bycoagulation assay 33 s 24-35 Arterial blood gas measurement - 7 04:45 Blood pCO2 47 mm[Hg] 35-45 Blood pO2 93 mm[Hg] 79-93 Arterial blood bicarbonate measurement (moles/volume) 26 mmol/L 23-27 Arterial blood base excess by calculation 0.8 mmol /L -2.5-2.5 Arterial blood oxygen saturation measurement 98 % 94-100 * Inhaled oxygen flow rate 4L NC NRG Arterial blood pH measurement with patient temperature correction 7.35 7.37-7.43 Arterial blood carbon dioxide, total measurement (mole s/volume) 27.3 mmol/L 21.0-31.0 Body site L RAD NRG Assessment of wrist artery patency prior to arterial p uncture YES-POS NRG Setting of ventilation mode NO NR G Measurement of body temperature 97.8 NRG Capillary blood glucose measurement by g lucometer (mass/volume) - 01/07/17 05:44 Capillary blood glucose measurement by glucometer (mas s/volume) 167 mg/dL 70-110 Capillary blood glucose measurement by g lucometer (mass/volume) - 01/07/17 07:04 Capillary blood glucose measurement by glucometer (mas s/volume) 174 mg/dL 70-110 Capillary blood glucose measurement by g lucometer (mass/volume) - 01/07/17 08:08 Capillary blood glucose measurement by glucometer (mas s/volume) 171 mg/dL 70-110 Capillary blood glucose measurement by g lucometer (mass/volume) - 01/07/17 11:06 Capillary blood glucose measurement by glucometer (mas s/volume) 173 mg/dL 70-110 Complete blood count (CBC) with automate d white blood cell (WBC) differential - 01/08/17 05:05 Blood leukocytes automated count (number/volume) 15.5 10*3/uL 4.3-11.0 Blood erythrocytes automated count (number/volume) 2.68 10*6/uL 4.35-5.85 Venous blood hemoglobin measurement (mass/volume) 8.0 g/dL 11.5-16.0 Blood hematocrit (volume fraction) 26 % 35-52 Automated erythrocyte mean corpuscular volume 96 [ foz_us] 80-99 Automated erythrocyte mean corpuscular h emoglobin (mass per erythrocyte) 30 pg 25-34 Automated erythrocyte mean corpuscular h emoglobin concentration measurement (mass/volume) 31 g/dL 32-36 Automated erythrocyte distribution width ratio 14. 9 % 10.0- 14.5 Automated blood platelet count (count/volume) 493 10*3/uL 130-400 Automated blood platelet mean volume measurement 9.3 [foz_us] 7.4-10.4 Automated blood neutrophils/100 leukocytes 86 % 42-75 Automated blood lymphocytes/100 leukocytes 9 % 12-44 Blood monocytes/100 leukocytes 5 % 0-12 Automated blood eosinophils/100 leukocytes 0 % 0-10 Automated blood basophils/100 leukocytes 0 % 0-10 Blood neutrophils automated count (number/volume) 13.3 10*3 1.8-7.8 Blood lymphocytes automated count (number/volume) 1.4 10*3 1.0-4.0 Blood monocytes automated count (number/volume) 0. 7 10*3 0.0-1.0 Automated eosinophil count 0.0 10*3/uL 0 .0-0.3 Automated blood basophil count (count/volume) 0.0 10*3/uL 0.0-0.1 PT panel in platelet poor plasma by coag ulation assay - 01/08/17 05:05 Prothrombin time (PT) in platelet poor plasma by coagu lation assay 14.4 s 12.2-14.7 INR in platelet poor plasma or blood by coagulation as say 1.2 0.8-1.4 Activated partial thromboplastin time (a PTT) in platelet poor plasma bycoagulation assay - 01/08/17 05:05 Activated partial thromboplastin time (a PTT) in platelet poor plasma bycoagulation assay 32 s 24-35 Blood lactic acid measurement (moles/vol ume) - 01/08/17 05:05 Blood lactic acid measurement (moles/volume) 1.08 mmol/L 0.50-2.00 Comprehensive metabolic panel - 01/08/17 05:05 Serum or plasma sodium measurement (moles/volume) 144 mmol/L 135-145 Serum or plasma potassium measurement (moles/volume) 3.2 mmol/L 3.6-5.0 Serum or plasma chloride measurement (moles/volume) 116 mmol/L 98-107 Carbon dioxide 19 mmol/L 21-32 Serum or plasma anion gap determination (moles/volume) 9 mmol/L 5-14 Serum or plasma urea nitrogen measurement (mass/volume ) 11 mg/dL 7-18 Serum or plasma creatinine measurement (mass/volume) 0.51 mg/dL 0.60-1.30 Serum or plasma urea nitrogen/creatinine mass ratio 22 NRG Serum or plasma creatinine measurement w ith calculation of estimated glomerular filtration rate > NRG Serum or plasma glucose measurement (mass/volume) 135 mg/dL 70-105 Serum or plasma calcium measurement (mass/volume) 7.4 mg/dL 8.5-10.1 Serum or plasma total bilirubin measurement (mass/volu me) 0.5 mg/dL 0.1-1.0 Serum or plasma alkaline phosphatase shiv surement (enzymatic activity/volume) 77 U/L 40-136 Serum or plasma aspartate aminotransfera se measurement (enzymatic activity/volume) 12 U/L 5-34 Serum or plasma alanine aminotransferase measurement (enzymatic activity/volume) 13 U/L 0-55 Serum or plasma protein measurement (mass/volume) 5.6 g/dL 6.4-8.2 Serum or plasma albumin measurement (mass/volume) 2.5 g/dL 3.2-4.5 Serum or plasma phosphate measurement (m ass/volume) - 01/08/17 05:05 Serum or plasma phosphate measurement (mass/volume) 2.7 mg/dL 2.3-4.7 Magnesium - 01/08/17 05:05 Magnesium 1.5 mg/dL 1.8-2.4 Complete blood count (CBC) with automate d white blood cell (WBC) differential - 01/09/17 06:10 Blood leukocytes automated count (number/volume) 17.4 10*3/uL 4.3-11.0 Blood erythrocytes automated count (number/volume) 2.98 10*6/uL 4.35-5.85 Venous blood hemoglobin measurement (mass/volume) 9.1 g/dL 11.5-16.0 Blood hematocrit (volume fraction) 29 % 35-52 Automated erythrocyte mean corpuscular volume 97 [ foz_us] 80-99 Automated erythrocyte mean corpuscular h emoglobin (mass per erythrocyte) 31 pg 25-34 Automated erythrocyte mean corpuscular h emoglobin concentration measurement (mass/volume) 32 g/dL 32-36 Automated erythrocyte distribution width ratio 15. 5 % 10.0- 14.5 Automated blood platelet count (count/volume) 532 10*3/uL 130-400 Automated blood platelet mean volume measurement 9.4 [foz_us] 7.4-10.4 Automated blood neutrophils/100 leukocytes 85 % 42-75 Automated blood lymphocytes/100 leukocytes 10 % 12-44 Blood monocytes/100 leukocytes 5 % 0-12 Automated blood eosinophils/100 leukocytes 0 % 0-10 Automated blood basophils/100 leukocytes 0 % 0-10 Blood neutrophils automated count (number/volume) 14.7 10*3 1.8-7.8 Blood lymphocytes automated count (number/volume) 1.7 10*3 1.0-4.0 Blood monocytes automated count (number/volume) 0. 9 10*3 0.0-1.0 Automated eosinophil count 0.0 10*3/uL 0 .0-0.3 Automated blood basophil count (count/volume) 0.0 10*3/uL 0.0-0.1 Blood lactic acid measurement (moles/vol ume) - 01/09/17 06:10 Blood lactic acid measurement (moles/volume) 1.36 mmol/L 0.50-2.00 PT panel in platelet poor plasma by coag ulation assay - 01/09/17 06:10 Prothrombin time (PT) in platelet poor plasma by coagu lation assay 13.0 s 12.2-14.7 INR in platelet poor plasma or blood by coagulation as say 1.0 0.8-1.4 Activated partial thromboplastin time (a PTT) in platelet poor plasma bycoagulation assay - 01/09/17 06:10 Activated partial thromboplastin time (a PTT) in platelet poor plasma bycoagulation assay 28 s 24-35 Comprehensive metabolic panel - 01/09/17 06:10 Serum or plasma sodium measurement (moles/volume) 143 mmol/L 135-145 Serum or plasma potassium measurement (moles/volume) 4.3 mmol/L 3.6-5.0 Serum or plasma chloride measurement (moles/volume) 109 mmol/L 98-107 Carbon dioxide 27 mmol/L 21-32 Serum or plasma anion gap determination (moles/volume) 7 mmol/L 5-14 Serum or plasma urea nitrogen measurement (mass/volume ) 11 mg/dL 7-18 Serum or plasma creatinine measurement (mass/volume) 0.69 mg/dL 0.60-1.30 Serum or plasma urea nitrogen/creatinine mass ratio 16 NRG Serum or plasma creatinine measurement w ith calculation of estimated glomerular filtration rate > NRG Serum or plasma glucose measurement (mass/volume) 135 mg/dL 70-105 Serum or plasma calcium measurement (mass/volume) 9.3 mg/dL 8.5-10.1 Serum or plasma total bilirubin measurement (mass/volu me) 0.5 mg/dL 0.1-1.0 Serum or plasma alkaline phosphatase shiv surement (enzymatic activity/volume) 84 U/L 40-136 Serum or plasma aspartate aminotransfera se measurement (enzymatic activity/volume) 20 U/L 5-34 Serum or plasma alanine aminotransferase measurement (enzymatic activity/volume) 18 U/L 0-55 Serum or plasma protein measurement (mass/volume) 7.1 g/dL 6.4-8.2 Serum or plasma albumin measurement (mass/volume) 3.1 g/dL 3.2-4.5 Serum or plasma phosphate measurement (m ass/volume) - 01/09/17 06:10 Serum or plasma phosphate measurement (mass/volume) 2.8 mg/dL 2.3-4.7 Magnesium - 01/09/17 06:10 Magnesium 1.9 mg/dL 1.8-2.4 Blood manual differential performed dete ction - 01/09/17 06:10 Blood monocytes/100 leukocytes 6 % NRG Manual blood segmented neutrophils/100 leukocytes 82 % NRG Blood band neutrophils/100 leukocytes 0 % NRG Manual blood lymphocytes/100 leukocytes 12 % NRG Manual eosinophils/100 leukocytes in nose 0 % NRG Manual blood basophils/100 leukocytes 0 % NRG Blood anisocytosis detection by light microscopy S LIGHT NRG CBC With Differential/Platelet - 7 12:02 WBC 13.8 x10E3/uL 3.4-10.8 RBC 4.46 x10E6/uL 3.77-5.28 Hemoglobin 13.5 g/dL 11.1-15.9 Hematocrit 41.0 % 34.0-46.6 MCV 92 fL 79-97 MCH 30.3 pg 26.6-33.0 MCHC 32.9 g/dL 31.5-35.7 RDW 14.8 % 12.3-15.4 Platelets 438 x10E3/uL 150-379 Neutrophils 50 % Lymphs 35 % Monocytes 13 % Eos 2 % Basos 0 % Neutrophils (Absolute) 6.9 x10E3/uL 1.4- 7.0 Lymphs (Absolute) 4.8 x10E3/uL 0.7-3.1 Monocytes(Absolute) 1.8 x10E3/uL 0.1-0.9 Eos (Absolute) 0.3 x10E3/uL 0.0-0.4 Baso (Absolute) 0.0 x10E3/uL 0.0-0.2 Immature Granulocytes 0 % Immature Grans (Abs) 0.0 x10E3/uL 0.0-0. 1 Hematology Comments: Note: Comp. Metabolic Panel (14) - 02/16/17 12 :02 Glucose, Serum 90 mg/dL 65-99 BUN 18 mg/dL 8-27 Creatinine, Serum 0.83 mg/dL 0.57-1.00 eGFR If NonAfricn Am 73 mL/min/1.73 >59 eGFR If Africn Am 84 mL/min/1.73 >59 BUN/Creatinine Ratio 22 12-28 Sodium, Serum 138 mmol/L 134-144 Potassium, Serum 4.7 mmol/L 3.5-5.2 Chloride, Serum 96 mmol/L 96-106 Carbon Dioxide, Total 23 mmol/L 18-29 Calcium, Serum 9.2 mg/dL 8.7-10.3 Protein, Total, Serum 7.5 g/dL 6.0-8.5 Albumin, Serum 3.7 g/dL 3.6-4.8 Globulin, Total 3.8 g/dL 1.5-4.5 A/G Ratio 1.0 1.2-2.2 Bilirubin, Total 0.6 mg/dL 0.0-1.2 Alkaline Phosphatase, S 117 IU/L 39-117 AST (SGOT) 19 IU/L 0-40 ALT (SGPT) 18 IU/L 0-32 B-Type Natriuretic Peptide - 02/16/17 12 :02 B-Type Natriuretic Peptide 378.9 pg/mL 0 .0-100.0 Urine Culture, Routine - 02/16/17 12:02 Urine Culture, Routine Note Complete blood count (CBC) with automate d white blood cell (WBC) differential - 04/09/17 10:10 Blood leukocytes automated count (number/volume) 36.3 10*3/uL 4.3-11.0 Blood erythrocytes automated count (number/volume) 4.68 10*6/uL 4.35-5.85 Venous blood hemoglobin measurement (mass/volume) 13.8 g/dL 11.5-16.0 Blood hematocrit (volume fraction) 43 % 35-52 Automated erythrocyte mean corpuscular volume 92 [ foz_us] 80-99 Automated erythrocyte mean corpuscular h emoglobin (mass per erythrocyte) 30 pg 25-34 Automated erythrocyte mean corpuscular h emoglobin concentration measurement (mass/volume) 32 g/dL 32-36 Automated erythrocyte distribution width ratio 14. 9 % 10.0- 14.5 Automated blood platelet count (count/volume) 344 10*3/uL 130-400 Automated blood platelet mean volume measurement 10.0 [foz_us] 7.4-10.4 Automated blood neutrophils/100 leukocytes 85 % 42-75 Automated blood lymphocytes/100 leukocytes 8 % 12-44 Blood monocytes/100 leukocytes 7 % 0-12 Automated blood eosinophils/100 leukocytes 0 % 0-10 Automated blood basophils/100 leukocytes 0 % 0-10 Blood neutrophils automated count (number/volume) 30.8 10*3 1.8-7.8 Blood lymphocytes automated count (number/volume) 3.0 10*3 1.0-4.0 Blood monocytes automated count (number/volume) 2. 5 10*3 0.0-1.0 Automated eosinophil count 0.0 10*3/uL 0 .0-0.3 Automated blood basophil count (count/volume) 0.1 10*3/uL 0.0-0.1 Comprehensive metabolic panel - 04/09/17 10:10 Serum or plasma sodium measurement (moles/volume) 140 mmol/L 135-145 Serum or plasma potassium measurement (moles/volume) 4.2 mmol/L 3.6-5.0 Serum or plasma chloride measurement (moles/volume) 103 mmol/L 98-107 Carbon dioxide 22 mmol/L 21-32 Serum or plasma anion gap determination (moles/volume) 15 mmol/L 5-14 Serum or plasma urea nitrogen measurement (mass/volume ) 28 mg/dL 7-18 Serum or plasma creatinine measurement (mass/volume) 1.08 mg/dL 0.60-1.30 Serum or plasma urea nitrogen/creatinine mass ratio 26 NRG Serum or plasma creatinine measurement w ith calculation of estimated glomerular filtration rate 51 NRG Serum or plasma glucose measurement (mass/volume) 125 mg/dL 70-105 Serum or plasma calcium measurement (mass/volume) 9.3 mg/dL 8.5-10.1 Serum or plasma total bilirubin measurement (mass/volu me) 2.0 mg/dL 0.1-1.0 Serum or plasma alkaline phosphatase shiv surement (enzymatic activity/volume) 96 U/L 40-136 Serum or plasma aspartate aminotransfera se measurement (enzymatic activity/volume) 28 U/L 5-34 Serum or plasma alanine aminotransferase measurement (enzymatic activity/volume) 26 U/L 0-55 Serum or plasma protein measurement (mass/volume) 8.3 g/dL 6.4-8.2 Serum or plasma albumin measurement (mass/volume) 3.8 g/dL 3.2-4.5 Serum or plasma amylase measurement (enz ymatic activity/volume) - 04/09/17 10:10 Serum or plasma amylase measurement (enzymatic activit y/volume) 35 U/L 25-125 Lipase - 04/09/17 10:10 Lipase < U/L 8-78 Blood manual differential performed dete ction - 04/09/17 10:10 Blood monocytes/100 leukocytes 8 % NRG Manual blood segmented neutrophils/100 leukocytes 52 % NRG Blood band neutrophils/100 leukocytes 32 % NRG Manual blood lymphocytes/100 leukocytes 3 % NRG Manual eosinophils/100 leukocytes in nose 0 % NRG Manual blood basophils/100 leukocytes 0 % NRG Blood lymphocytes variant/100 leukocytes 5 % NRG Blood poikilocytosis detection by light microscopy SLIGHT NRG Blood stomatocytes detection by light microscopy S LIGHT NRG Bacterial blood culture - 04/09/17 12:10 QUANTITY OF GROWTH Isolated NRG Bacterial blood culture [id number] NRG Bacterial blood culture - 04/09/17 12:27 Bacterial blood culture NG NRG Influenza virus A and B antigen detectio n - 04/09/17 13:06 FLU RESULT NEGATIVE FOR INFLUENZA A AND B ANTIGENS BY IA NRG Complete urinalysis with reflex to cultu re - 04/09/17 13:54 Urine color determination ANTWON NRG Urine clarity determination SLIGHTLY CLOUDY NRG Urine pH measurement by test strip 5 5-9 Specific gravity of urine by test strip 1.015 1.016-1.022 Urine protein assay by test strip, semi-quantitative 1+ NEGATIVE Urine glucose detection by automated test strip NE GATIVE NEGATIVE Erythrocytes detection in urine sediment by light micr oscopy NEGATIVE NEGATIVE Urine ketones detection by automated test strip NE GATIVE NEGATIVE Urine nitrite detection by test strip NEGATIVE NEGATIVE Urine total bilirubin detection by test strip 1+ NEGATIVE Urine urobilinogen measurement by automated test strip (mass/volume) 1 mg/dL NORMAL Urine leukocyte esterase detection by dipstick 1+ NEGATIVE Automated urine sediment erythrocyte cou nt by microscopy (number/high power field) NONE NRG Automated urine sediment leukocyte count by microscopy (number/high power field) [HPF] NRG Bacteria detection in urine sediment by light microsco py FEW NRG Squamous epithelial cells detection in u rine sediment by light microscopy 10-25 NRG Crystals detection in urine sediment by light microsco py NONE NRG Casts detection in urine sediment by light microscopy PRESENT NRG Mucus detection in urine sediment by light microscopy LARGE NRG Complete urinalysis with reflex to culture NO NRG Hyaline casts detection in urine sediment by light priti roscopy 10-25 NRG Renal epithelial cells detection in urin e sediment by light microscopy NONE NRG Blood lactic acid measurement (moles/vol ume) - 04/09/17 14:00 Blood lactic acid measurement (moles/volume) 1.97 mmol/L 0.50-2.00 Methicillin resistant Staphylococcus aur eus (MRSA) screening culture - 04/09/17 17:36 Methicillin resistant Staphylococcus aureus (MRSA) scr eening culture NEG NRG Capillary blood glucose measurement by g lucometer (mass/volume) - 04/09/17 18:24 Capillary blood glucose measurement by glucometer (mas s/volume) 211 mg/dL 70-110 Capillary blood glucose measurement by g lucometer (mass/volume) - 04/09/17 20:52 Capillary blood glucose measurement by glucometer (mas s/volume) 217 mg/dL 70-110 Complete blood count (CBC) with automate d white blood cell (WBC) differential - 04/10/17 04:50 Blood leukocytes automated count (number/volume) 38.5 10*3/uL 4.3-11.0 Blood erythrocytes automated count (number/volume) 3.72 10*6/uL 4.35-5.85 Venous blood hemoglobin measurement (mass/volume) 11.1 g/dL 11.5-16.0 Blood hematocrit (volume fraction) 35 % 35-52 Automated erythrocyte mean corpuscular volume 93 [ foz_us] 80-99 Automated erythrocyte mean corpuscular h emoglobin (mass per erythrocyte) 30 pg 25-34 Automated erythrocyte mean corpuscular h emoglobin concentration measurement (mass/volume) 32 g/dL 32-36 Automated erythrocyte distribution width ratio 15. 2 % 10.0- 14.5 Automated blood platelet count (count/volume) 284 10*3/uL 130-400 Automated blood platelet mean volume measurement 9.9 [foz_us] 7.4-10.4 Automated blood neutrophils/100 leukocytes 90 % 42-75 Automated blood lymphocytes/100 leukocytes 6 % 12-44 Blood monocytes/100 leukocytes 4 % 0-12 Automated blood eosinophils/100 leukocytes 0 % 0-10 Automated blood basophils/100 leukocytes 0 % 0-10 Blood neutrophils automated count (number/volume) 34.8 10*3 1.8-7.8 Blood lymphocytes automated count (number/volume) 2.3 10*3 1.0-4.0 Blood monocytes automated count (number/volume) 1. 4 10*3 0.0-1.0 Automated eosinophil count 0.0 10*3/uL 0 .0-0.3 Automated blood basophil count (count/volume) 0.0 10*3/uL 0.0-0.1 PT panel in platelet poor plasma by coag ulation assay - 04/10/17 04:50 Prothrombin time (PT) in platelet poor plasma by coagu lation assay 15.9 s 12.2-14.7 INR in platelet poor plasma or blood by coagulation as say 1.3 0.8-1.4 Activated partial thromboplastin time (a PTT) in platelet poor plasma bycoagulation assay - 04/10/17 04:50 Activated partial thromboplastin time (a PTT) in platelet poor plasma bycoagulation assay 34 s 24-35 Whole blood basic metabolic panel - 03/14 03/29 04:50 Serum or plasma sodium measurement (moles/volume) 145 mmol/L 135-145 Serum or plasma potassium measurement (moles/volume) 3.7 mmol/L 3.6-5.0 Serum or plasma chloride measurement (moles/volume) 115 mmol/L 98-107 Carbon dioxide 23 mmol/L 21-32 Serum or plasma anion gap determination (moles/volume) 7 mmol/L 5-14 Serum or plasma urea nitrogen measurement (mass/volume ) 17 mg/dL 7-18 Serum or plasma creatinine measurement (mass/volume) 0.70 mg/dL 0.60-1.30 Serum or plasma urea nitrogen/creatinine mass ratio 24 NRG Serum or plasma creatinine measurement w ith calculation of estimated glomerular filtration rate > NRG Serum or plasma glucose measurement (mass/volume) 165 mg/dL 70-105 Serum or plasma calcium measurement (mass/volume) 8.4 mg/dL 8.5-10.1 Serum or plasma phosphate measurement (m ass/volume) - 04/10/17 04:50 Serum or plasma phosphate measurement (mass/volume) 1.7 mg/dL 2.3-4.7 Magnesium - 04/10/17 04:50 Magnesium 1.4 mg/dL 1.8-2.4 Capillary blood glucose measurement by g lucometer (mass/volume) - 04/10/17 13:26 Capillary blood glucose measurement by glucometer (mas s/volume) 139 mg/dL 70-110 Capillary blood glucose measurement by g lucometer (mass/volume) - 04/10/17 19:55 Capillary blood glucose measurement by glucometer (mas s/volume) 338 mg/dL 70-110 Complete blood count (CBC) with automate d white blood cell (WBC) differential - 04/11/17 04:25 Blood leukocytes automated count (number/volume) 28.2 10*3/uL 4.3-11.0 Blood erythrocytes automated count (number/volume) 3.32 10*6/uL 4.35-5.85 Venous blood hemoglobin measurement (mass/volume) 9.9 g/dL 11.5-16.0 Blood hematocrit (volume fraction) 31 % 35-52 Automated erythrocyte mean corpuscular volume 93 [ foz_us] 80-99 Automated erythrocyte mean corpuscular h emoglobin (mass per erythrocyte) 30 pg 25-34 Automated erythrocyte mean corpuscular h emoglobin concentration measurement (mass/volume) 32 g/dL 32-36 Automated erythrocyte distribution width ratio 15. 4 % 10.0- 14.5 Automated blood platelet count (count/volume) 263 10*3/uL 130-400 Automated blood platelet mean volume measurement 10.4 [foz_us] 7.4-10.4 Automated blood neutrophils/100 leukocytes 88 % 42-75 Automated blood lymphocytes/100 leukocytes 6 % 12-44 Blood monocytes/100 leukocytes 5 % 0-12 Automated blood eosinophils/100 leukocytes 0 % 0-10 Automated blood basophils/100 leukocytes 0 % 0-10 Blood neutrophils automated count (number/volume) 24.8 10*3 1.8-7.8 Blood lymphocytes automated count (number/volume) 1.8 10*3 1.0-4.0 Blood monocytes automated count (number/volume) 1. 5 10*3 0.0-1.0 Automated eosinophil count 0.0 10*3/uL 0 .0-0.3 Automated blood basophil count (count/volume) 0.0 10*3/uL 0.0-0.1 Comprehensive metabolic panel - 04/11/17 04:25 Serum or plasma sodium measurement (moles/volume) 144 mmol/L 135-145 Serum or plasma potassium measurement (moles/volume) 3.3 mmol/L 3.6-5.0 Serum or plasma chloride measurement (moles/volume) 113 mmol/L 98-107 Carbon dioxide 22 mmol/L 21-32 Serum or plasma anion gap determination (moles/volume) 9 mmol/L 5-14 Serum or plasma urea nitrogen measurement (mass/volume ) 19 mg/dL 7-18 Serum or plasma creatinine measurement (mass/volume) 0.75 mg/dL 0.60-1.30 Serum or plasma urea nitrogen/creatinine mass ratio 25 NRG Serum or plasma creatinine measurement w ith calculation of estimated glomerular filtration rate > NRG Serum or plasma glucose measurement (mass/volume) 133 mg/dL 70-105 Serum or plasma calcium measurement (mass/volume) 8.8 mg/dL 8.5-10.1 Serum or plasma total bilirubin measurement (mass/volu me) 0.7 mg/dL 0.1-1.0 Serum or plasma alkaline phosphatase shiv surement (enzymatic activity/volume) 59 U/L 40-136 Serum or plasma aspartate aminotransfera se measurement (enzymatic activity/volume) 17 U/L 5-34 Serum or plasma alanine aminotransferase measurement (enzymatic activity/volume) 22 U/L 0-55 Serum or plasma protein measurement (mass/volume) 6.9 g/dL 6.4-8.2 Serum or plasma albumin measurement (mass/volume) 3.2 g/dL 3.2-4.5 Serum or plasma phosphate measurement (m ass/volume) - 04/11/17 04:25 Serum or plasma phosphate measurement (mass/volume) 2.4 mg/dL 2.3-4.7 Magnesium - 04/11/17 04:25 Magnesium 1.8 mg/dL 1.8-2.4 PT panel in platelet poor plasma by coag ulation assay - 04/11/17 04:25 Prothrombin time (PT) in platelet poor plasma by coagu lation assay 13.3 s 12.2-14.7 INR in platelet poor plasma or blood by coagulation as say 1.0 0.8-1.4 Activated partial thromboplastin time (a PTT) in platelet poor plasma bycoagulation assay - 04/11/17 04:25 Activated partial thromboplastin time (a PTT) in platelet poor plasma bycoagulation assay 30 s 24-35 C DIFFICILE AG + TOXIN A/B. - 04/11/17 0 9:40 RESULTS NEGATIVE FOR ANTIGEN AND TOXIN A/B [facility] Stool bacteria identification by culture - 04/11/17 09:40 Stool bacteria identification by culture N2 NRG Capillary blood glucose measurement by g lucometer (mass/volume) - 04/11/17 15:20 Capillary blood glucose measurement by glucometer (mas s/volume) 139 mg/dL 70-110 Capillary blood glucose measurement by g lucometer (mass/volume) - 04/11/17 21:00 Capillary blood glucose measurement by glucometer (mas s/volume) 94 mg/dL 70-110 Arterial blood gas measurement - 7 22:55 Blood pCO2 47 mm[Hg] 35-45 Blood pO2 60 mm[Hg] 79-93 Arterial blood bicarbonate measurement (moles/volume) 24 mmol/L 23-27 Arterial blood base excess by calculation -1.5 mmo l/L -2.5-2.5 Arterial blood oxygen saturation measurement 91 % 94-100 * Inhaled oxygen flow rate 4L NRG Arterial blood pH measurement with patient temperature correction 7.33 7.37-7.43 Arterial blood carbon dioxide, total measurement (mole s/volume) 24.9 mmol/L 21.0-31.0 Body site L RAD NRG Assessment of wrist artery patency prior to arterial p uncture YES-POS NRG Setting of ventilation mode NO NR G Measurement of body temperature 99.5 NRG Complete blood count (CBC) with automate d white blood cell (WBC) differential - 04/12/17 04:50 Blood leukocytes automated count (number/volume) 25.2 10*3/uL 4.3-11.0 Blood erythrocytes automated count (number/volume) 3.49 10*6/uL 4.35-5.85 Venous blood hemoglobin measurement (mass/volume) 10.4 g/dL 11.5-16.0 Blood hematocrit (volume fraction) 33 % 35-52 Automated erythrocyte mean corpuscular volume 93 [ foz_us] 80-99 Automated erythrocyte mean corpuscular h emoglobin (mass per erythrocyte) 30 pg 25-34 Automated erythrocyte mean corpuscular h emoglobin concentration measurement (mass/volume) 32 g/dL 32-36 Automated erythrocyte distribution width ratio 15. 6 % 10.0- 14.5 Automated blood platelet count (count/volume) 275 10*3/uL 130-400 Automated blood platelet mean volume measurement 10.3 [foz_us] 7.4-10.4 Automated blood neutrophils/100 leukocytes 77 % 42-75 Automated blood lymphocytes/100 leukocytes 17 % 12-44 Blood monocytes/100 leukocytes 6 % 0-12 Automated blood eosinophils/100 leukocytes 0 % 0-10 Automated blood basophils/100 leukocytes 0 % 0-10 Blood neutrophils automated count (number/volume) 19.3 10*3 1.8-7.8 Blood lymphocytes automated count (number/volume) 4.4 10*3 1.0-4.0 Blood monocytes automated count (number/volume) 1. 5 10*3 0.0-1.0 Automated eosinophil count 0.0 10*3/uL 0 .0-0.3 Automated blood basophil count (count/volume) 0.0 10*3/uL 0.0-0.1 PT panel in platelet poor plasma by coag ulation assay - 04/12/17 04:50 Prothrombin time (PT) in platelet poor plasma by coagu lation assay 13.3 s 12.2-14.7 INR in platelet poor plasma or blood by coagulation as say 1.0 0.8-1.4 Activated partial thromboplastin time (a PTT) in platelet poor plasma bycoagulation assay - 04/12/17 04:50 Activated partial thromboplastin time (a PTT) in platelet poor plasma bycoagulation assay 29 s 24-35 Comprehensive metabolic panel - 04/12/17 04:50 Serum or plasma sodium measurement (moles/volume) 143 mmol/L 135-145 Serum or plasma potassium measurement (moles/volume) 3.3 mmol/L 3.6-5.0 Serum or plasma chloride measurement (moles/volume) 107 mmol/L 98-107 Carbon dioxide 27 mmol/L 21-32 Serum or plasma anion gap determination (moles/volume) 9 mmol/L 5-14 Serum or plasma urea nitrogen measurement (mass/volume ) 20 mg/dL 7-18 Serum or plasma creatinine measurement (mass/volume) 0.76 mg/dL 0.60-1.30 Serum or plasma urea nitrogen/creatinine mass ratio 26 NRG Serum or plasma creatinine measurement w ith calculation of estimated glomerular filtration rate > NRG Serum or plasma glucose measurement (mass/volume) 94 mg/dL 70-105 Serum or plasma calcium measurement (mass/volume) 9.0 mg/dL 8.5-10.1 Serum or plasma total bilirubin measurement (mass/volu me) 1.4 mg/dL 0.1-1.0 Serum or plasma alkaline phosphatase shiv surement (enzymatic activity/volume) 64 U/L 40-136 Serum or plasma aspartate aminotransfera se measurement (enzymatic activity/volume) 19 U/L 5-34 Serum or plasma alanine aminotransferase measurement (enzymatic activity/volume) 23 U/L 0-55 Serum or plasma protein measurement (mass/volume) 7.1 g/dL 6.4-8.2 Serum or plasma albumin measurement (mass/volume) 3.3 g/dL 3.2-4.5 Serum or plasma phosphate measurement (m ass/volume) - 04/12/17 04:50 Serum or plasma phosphate measurement (mass/volume) 2.3 mg/dL 2.3-4.7 Magnesium - 04/12/17 04:50 Magnesium 1.3 mg/dL 1.8-2.4 Capillary blood glucose measurement by g lucometer (mass/volume) - 04/12/17 12:15 Capillary blood glucose measurement by glucometer (mas s/volume) 121 mg/dL 70-110 Capillary blood glucose measurement by g lucometer (mass/volume) - 04/12/17 17:10 Capillary blood glucose measurement by glucometer (mas s/volume) 225 mg/dL 70-110 Capillary blood glucose measurement by g lucometer (mass/volume) - 04/12/17 21:45 Capillary blood glucose measurement by glucometer (mas s/volume) 244 mg/dL 70-110 Capillary blood glucose measurement by g lucometer (mass/volume) - 04/12/17 22:47 Capillary blood glucose measurement by glucometer (mas s/volume) 183 mg/dL 70-110 PT panel in platelet poor plasma by coag ulation assay - 04/13/17 05:30 Prothrombin time (PT) in platelet poor plasma by coagu lation assay 12.8 s 12.2-14.7 INR in platelet poor plasma or blood by coagulation as say 1.0 0.8-1.4 Activated partial thromboplastin time (a PTT) in platelet poor plasma bycoagulation assay - 04/13/17 05:30 Activated partial thromboplastin time (a PTT) in platelet poor plasma bycoagulation assay 31 s 24-35 Comprehensive metabolic panel - 04/13/17 05:30 Serum or plasma sodium measurement (moles/volume) 144 mmol/L 135-145 Serum or plasma potassium measurement (moles/volume) 3.5 mmol/L 3.6-5.0 Serum or plasma chloride measurement (moles/volume) 106 mmol/L 98-107 Carbon dioxide 28 mmol/L 21-32 Serum or plasma anion gap determination (moles/volume) 10 mmol/L 5-14 Serum or plasma urea nitrogen measurement (mass/volume ) 17 mg/dL 7-18 Serum or plasma creatinine measurement (mass/volume) 0.65 mg/dL 0.60-1.30 Serum or plasma urea nitrogen/creatinine mass ratio 26 NRG Serum or plasma creatinine measurement w ith calculation of estimated glomerular filtration rate > NRG Serum or plasma glucose measurement (mass/volume) 95 mg/dL 70-105 Serum or plasma calcium measurement (mass/volume) 8.8 mg/dL 8.5-10.1 Serum or plasma total bilirubin measurement (mass/volu me) 0.9 mg/dL 0.1-1.0 Serum or plasma alkaline phosphatase shiv surement (enzymatic activity/volume) 60 U/L 40-136 Serum or plasma aspartate aminotransfera se measurement (enzymatic activity/volume) 13 U/L 5-34 Serum or plasma alanine aminotransferase measurement (enzymatic activity/volume) 21 U/L 0-55 Serum or plasma protein measurement (mass/volume) 6.6 g/dL 6.4-8.2 Serum or plasma albumin measurement (mass/volume) 3.0 g/dL 3.2-4.5 Serum or plasma phosphate measurement (m ass/volume) - 04/13/17 05:30 Serum or plasma phosphate measurement (mass/volume) 2.8 mg/dL 2.3-4.7 Magnesium - 04/13/17 05:30 Magnesium 1.9 mg/dL 1.8-2.4 Complete blood count (CBC) with automate d white blood cell (WBC) differential - 04/13/17 05:30 Blood leukocytes automated count (number/volume) 13.5 10*3/uL 4.3-11.0 Blood erythrocytes automated count (number/volume) 3.25 10*6/uL 4.35-5.85 Venous blood hemoglobin measurement (mass/volume) 9.6 g/dL 11.5-16.0 Blood hematocrit (volume fraction) 30 % 35-52 Automated erythrocyte mean corpuscular volume 92 [ foz_us] 80-99 Automated erythrocyte mean corpuscular h emoglobin (mass per erythrocyte) 30 pg 25-34 Automated erythrocyte mean corpuscular h emoglobin concentration measurement (mass/volume) 32 g/dL 32-36 Automated erythrocyte distribution width ratio 15. 1 % 10.0- 14.5 Automated blood platelet count (count/volume) 264 10*3/uL 130-400 Automated blood platelet mean volume measurement 11.0 [foz_us] 7.4-10.4 Automated blood neutrophils/100 leukocytes 67 % 42-75 Automated blood lymphocytes/100 leukocytes 26 % 12-44 Blood monocytes/100 leukocytes 7 % 0-12 Automated blood eosinophils/100 leukocytes 0 % 0-10 Automated blood basophils/100 leukocytes 0 % 0-10 Blood neutrophils automated count (number/volume) 9.0 10*3 1.8-7.8 Blood lymphocytes automated count (number/volume) 3.5 10*3 1.0-4.0 Blood monocytes automated count (number/volume) 1. 0 10*3 0.0-1.0 Automated eosinophil count 0.0 10*3/uL 0 .0-0.3 Automated blood basophil count (count/volume) 0.0 10*3/uL 0.0-0.1 Capillary blood glucose measurement by g lucometer (mass/volume) - 04/13/17 05:38 Capillary blood glucose measurement by glucometer (mas s/volume) 85 mg/dL 70-110 Capillary blood glucose measurement by g lucometer (mass/volume) - 04/13/17 11:07 Capillary blood glucose measurement by glucometer (mas s/volume) 110 mg/dL 70-110 Complete blood count (CBC) with automate d white blood cell (WBC) differential - 12/03/17 13:20 Blood leukocytes automated count (number/volume) 13.9 10*3/uL 4.3-11.0 Blood erythrocytes automated count (number/volume) 5.07 10*6/uL 4.35-5.85 Venous blood hemoglobin measurement (mass/volume) 15.7 g/dL 11.5-16.0 Blood hematocrit (volume fraction) 47 % 35-52 Automated erythrocyte mean corpuscular volume 92 [ foz_us] 80-99 Automated erythrocyte mean corpuscular h emoglobin (mass per erythrocyte) 31 pg 25-34 Automated erythrocyte mean corpuscular h emoglobin concentration measurement (mass/volume) 34 g/dL 32-36 Automated erythrocyte distribution width ratio 14. 7 % 10.0- 14.5 Automated blood platelet count (count/volume) 376 10*3/uL 130-400 Automated blood platelet mean volume measurement 10.2 [foz_us] 7.4-10.4 Automated blood neutrophils/100 leukocytes 42 % 42-75 Automated blood lymphocytes/100 leukocytes 44 % 12-44 Blood monocytes/100 leukocytes 11 % 0-12 Automated blood eosinophils/100 leukocytes 3 % 0-10 Automated blood basophils/100 leukocytes 1 % 0-10 Blood neutrophils automated count (number/volume) 5.8 10*3 1.8-7.8 Blood lymphocytes automated count (number/volume) 6.1 10*3 1.0-4.0 Blood monocytes automated count (number/volume) 1. 6 10*3 0.0-1.0 Automated eosinophil count 0.4 10*3/uL 0 .0-0.3 Automated blood basophil count (count/volume) 0.1 10*3/uL 0.0-0.1 PT panel in platelet poor plasma by coag ulation assay - 12/03/17 13:20 Prothrombin time (PT) in platelet poor plasma by coagu lation assay 13.1 s 12.2-14.7 INR in platelet poor plasma or blood by coagulation as say 1.0 0.8-1.4 Activated partial thromboplastin time (a PTT) in platelet poor plasma bycoagulation assay - 12/03/17 13:20 Activated partial thromboplastin time (a PTT) in platelet poor plasma bycoagulation assay 31 s 24-35 Comprehensive metabolic panel - 12/03/17 13:20 Serum or plasma sodium measurement (moles/volume) 141 mmol/L 135-145 Serum or plasma potassium measurement (moles/volume) 4.9 mmol/L 3.6-5.0 Serum or plasma chloride measurement (moles/volume) 107 mmol/L 98-107 Carbon dioxide 23 mmol/L 21-32 Serum or plasma anion gap determination (moles/volume) 11 mmol/L 5-14 Serum or plasma urea nitrogen measurement (mass/volume ) 13 mg/dL 7-18 Serum or plasma creatinine measurement (mass/volume) 0.84 mg/dL 0.60-1.30 Serum or plasma urea nitrogen/creatinine mass ratio 15 NRG Serum or plasma creatinine measurement w ith calculation of estimated glomerular filtration rate > NRG Serum or plasma glucose measurement (mass/volume) 113 mg/dL 70-105 Serum or plasma calcium measurement (mass/volume) 9.4 mg/dL 8.5-10.1 Serum or plasma total bilirubin measurement (mass/volu me) 0.7 mg/dL 0.1-1.0 Serum or plasma alkaline phosphatase shiv surement (enzymatic activity/volume) 67 U/L 40-136 Serum or plasma aspartate aminotransfera se measurement (enzymatic activity/volume) 34 U/L 5-34 Serum or plasma alanine aminotransferase measurement (enzymatic activity/volume) 28 U/L 0-55 Serum or plasma protein measurement (mass/volume) 8.2 g/dL 6.4-8.2 Serum or plasma albumin measurement (mass/volume) 4.0 g/dL 3.2-4.5 Magnesium - 12/03/17 13:20 Magnesium 2.0 mg/dL 1.8-2.4 Serum or plasma troponin i.cardiac measu rement (mass/volume) - 12/03/17 13:20 Serum or plasma troponin i.cardiac measurement (mass/v olume) < ng/mL <0.30 Myoglobin, serum - 12/03/17 13:20 Myoglobin, serum 117.0 ng/mL 10.0-92.0 Serum or plasma lithium measurement (mol es/volume) - 12/03/17 13:20 BNP level 116.1 pg/mL <100.0 Whole blood basic metabolic panel - 01/28 13:17 Serum or plasma sodium measurement (moles/volume) 138 mmol/L 135-145 Serum or plasma potassium measurement (moles/volume) 4.5 mmol/L 3.6-5.0 Serum or plasma chloride measurement (moles/volume) 103 mmol/L 98-107 Carbon dioxide 28 mmol/L 21-32 Serum or plasma anion gap determination (moles/volume) 7 mmol/L 5-14 Serum or plasma urea nitrogen measurement (mass/volume ) 16 mg/dL 7-18 Serum or plasma creatinine measurement (mass/volume) 1.03 mg/dL 0.60-1.30 Serum or plasma urea nitrogen/creatinine mass ratio 16 NRG Serum or plasma creatinine measurement w ith calculation of estimated glomerular filtration rate 53 NRG Serum or plasma glucose measurement (mass/volume) 84 mg/dL 70-105 Serum or plasma calcium measurement (mass/volume) 9.7 mg/dL 8.5-10.1 [id number] - 09/21/18 10:59 Serum or plasma urea nitrogen measurement (mass/volume ) 20 mg/dL 7-18 Serum or plasma creatinine measurement (mass/volume) 0.99 mg/dL 0.60-1.30 Serum or plasma urea nitrogen/creatinine mass ratio 20 NRG Serum or plasma creatinine measurement w ith calculation of estimated glomerular filtration rate 56 NRG Complete blood count (CBC) with automate d white blood cell (WBC) differential - 10/30/18 18:36 Blood leukocytes automated count (number/volume) 21.7 10*3/uL 4.3-11.0 Blood erythrocytes automated count (number/volume) 3.97 10*6/uL 4.35-5.85 Venous blood hemoglobin measurement (mass/volume) 12.5 g/dL 11.5-16.0 Blood hematocrit (volume fraction) 38 % 35-52 Automated erythrocyte mean corpuscular volume 96 [ foz_us] 80-99 Automated erythrocyte mean corpuscular h emoglobin (mass per erythrocyte) 32 pg 25-34 Automated erythrocyte mean corpuscular h emoglobin concentration measurement (mass/volume) 33 g/dL 32-36 Automated erythrocyte distribution width ratio 12. 5 % 10.0- 14.5 Automated blood platelet count (count/volume) 273 10*3/uL 130-400 Automated blood platelet mean volume measurement 9.9 [foz_us] 7.4-10.4 Automated blood neutrophils/100 leukocytes 67 % 42-75 Automated blood lymphocytes/100 leukocytes 23 % 12-44 Blood monocytes/100 leukocytes 9 % 0-12 Automated blood eosinophils/100 leukocytes 1 % 0-10 Automated blood basophils/100 leukocytes 0 % 0-10 Blood neutrophils automated count (number/volume) 14.5 10*3 1.8-7.8 Blood lymphocytes automated count (number/volume) 5.0 10*3 1.0-4.0 Blood monocytes automated count (number/volume) 2. 0 10*3 0.0-1.0 Automated eosinophil count 0.1 10*3/uL 0 .0-0.3 Automated blood basophil count (count/volume) 0.1 10*3/uL 0.0-0.1 Blood lactic acid measurement (moles/vol ume) - 10/30/18 18:36 Blood lactic acid measurement (moles/volume) 1.08 mmol/L 0.50-2.00 PT panel in platelet poor plasma by coag ulation assay - 10/30/18 18:36 Prothrombin time (PT) in platelet poor plasma by coagu lation assay 13.3 s 12.2-14.7 INR in platelet poor plasma or blood by coagulation as say 1.0 0.8-1.4 Activated partial thromboplastin time (a PTT) in platelet poor plasma bycoagulation assay - 10/30/18 18:36 Activated partial thromboplastin time (a PTT) in platelet poor plasma bycoagulation assay 33 s 24-35 Comprehensive metabolic panel - 10/30/18 18:36 Serum or plasma sodium measurement (moles/volume) 137 mmol/L 135-145 Serum or plasma potassium measurement (moles/volume) 4.3 mmol/L 3.6-5.0 Serum or plasma chloride measurement (moles/volume) 101 mmol/L 98-107 Carbon dioxide 25 mmol/L 21-32 Serum or plasma anion gap determination (moles/volume) 11 mmol/L 5-14 Serum or plasma urea nitrogen measurement (mass/volume ) 16 mg/dL 7-18 Serum or plasma creatinine measurement (mass/volume) 0.93 mg/dL 0.60-1.30 Serum or plasma urea nitrogen/creatinine mass ratio 17 NRG Serum or plasma creatinine measurement w ith calculation of estimated glomerular filtration rate 60 NRG Serum or plasma glucose measurement (mass/volume) 102 mg/dL 70-105 Serum or plasma calcium measurement (mass/volume) 9.7 mg/dL 8.5-10.1 Serum or plasma total bilirubin measurement (mass/volu me) 0.9 mg/dL 0.1-1.0 Serum or plasma alkaline phosphatase shiv surement (enzymatic activity/volume) 61 U/L 40-136 Serum or plasma aspartate aminotransfera se measurement (enzymatic activity/volume) 21 U/L 5-34 Serum or plasma alanine aminotransferase measurement (enzymatic activity/volume) 18 U/L 0-55 Serum or plasma protein measurement (mass/volume) 7.3 g/dL 6.4-8.2 Serum or plasma albumin measurement (mass/volume) 3.8 g/dL 3.2-4.5 CALCIUM CORRECTED 9.9 mg/dL 8.5-10.1 Blood manual differential performed dete ction - 10/30/18 18:36 Blood monocytes/100 leukocytes 4 % NRG Manual blood segmented neutrophils/100 leukocytes 69 % NRG Blood band neutrophils/100 leukocytes 3 % NRG Manual blood lymphocytes/100 leukocytes 24 % NRG Manual eosinophils/100 leukocytes in nose 0 % NRG Manual blood basophils/100 leukocytes 0 % NRG Blood toxic granules detection by light microscopy 1+ NRG Blood stomatocytes detection by light microscopy S LIGHT NRG Bacterial blood culture - 10/30/18 18:36 Bacterial blood culture NG NRG Influenza virus A and B antigen detectio n - 10/30/18 18:37 FLU RESULT NEGATIVE FOR INFLUENZA A AND B ANTIGENS BY IA NRG Complete urinalysis with reflex to cultu re - 10/30/18 18:49 Urine color determination YELLOW NRG Urine clarity determination CLEAR NR G Urine pH measurement by test strip 5 5-9 Specific gravity of urine by test strip 1.020 1.016-1.022 Urine protein assay by test strip, semi-quantitative 2+ NEGATIVE Urine glucose detection by automated test strip NE GATIVE NEGATIVE Erythrocytes detection in urine sediment by light micr oscopy NEGATIVE NEGATIVE Urine ketones detection by automated test strip 1+ NEGATIVE Urine nitrite detection by test strip NEGATIVE NEGATIVE Urine total bilirubin detection by test strip 1+ NEGATIVE Urine urobilinogen measurement by automated test strip (mass/volume) 1 mg/dL NORMAL Urine leukocyte esterase detection by dipstick 2+ NEGATIVE Automated urine sediment erythrocyte cou nt by microscopy (number/high power field) NONE NRG Automated urine sediment leukocyte count by microscopy (number/high power field) RARE NRG Bacteria detection in urine sediment by light microsco py FEW NRG Squamous epithelial cells detection in u rine sediment by light microscopy 2-5 NRG Crystals detection in urine sediment by light microsco py NONE NRG Casts detection in urine sediment by light microscopy NONE NRG Mucus detection in urine sediment by light microscopy SMALL NRG Complete urinalysis with reflex to culture CULTURE PENDING NRG Bacterial urine culture - 10/30/18 18:49 Bacterial urine culture 3 OR MORE NRG COLONY COUNT >100,000/ML NRG FTX;REPORTABLE (GRAM POSITIVE) SUGGESTING PROBABLE NRG FREE TEXT ENTRY 2 COLLECTION CONTAMINATION WITH SK IN NRG FREE TEXT ENTRY 3 MALINI. NO SUSCEPTIBILITY PERFOR MED NRG Bacterial blood culture - 10/30/18 18:55 Bacterial blood culture NG [facility] Methicillin resistant Staphylococcus aur eus (MRSA) screening culture - 06/08/19 10:00 Methicillin resistant Staphylococcus aureus (MRSA) scr eening culture NEG [facility] Methicillin resistant Staphylococcus aur eus (MRSA) screening culture - 07/08/19 08:33 Methicillin resistant Staphylococcus aureus (MRSA) scr eening culture NEG [facility] Influenza virus A and B antigen detectio n - 08/01/19 09:29 CALL POSITIVES (F1 HELP) CALLED TO [place] AT 1027 [facility] FLU RESULT POSITIVE FOR INFLUENZA B ANT IGEN, NEG FOR A ANTIGEN, BY IA [facility] Complete blood count (CBC) with automate d white blood cell (WBC) differential - 08/01/19 09:45 Blood leukocytes automated count (number/volume) 2.7 10*3/uL 4.3-11.0 Blood erythrocytes automated count (number/volume) 3.14 10*6/uL 4.35-5.85 Venous blood hemoglobin measurement (mass/volume) 9.7 g/dL 11.5-16.0 Blood hematocrit (volume fraction) 30 % 35-52 Automated erythrocyte mean corpuscular volume 95 [ foz_us] 80-99 Automated erythrocyte mean corpuscular h emoglobin (mass per erythrocyte) 31 pg 25-34 Automated erythrocyte mean corpuscular h emoglobin concentration measurement (mass/volume) 33 g/dL 32-36 Automated erythrocyte distribution width ratio 13. 5 % 10.0- 14.5 Automated blood platelet count (count/volume) 151 10*3/uL 130-400 Automated blood platelet mean volume measurement 10.0 [foz_us] 7.4-10.4 Automated blood neutrophils/100 leukocytes 76 % 42-75 Automated blood lymphocytes/100 leukocytes 13 % 12-44 Blood monocytes/100 leukocytes 11 % 0-12 Automated blood eosinophils/100 leukocytes 0 % 0-10 Automated blood basophils/100 leukocytes 0 % 0-10 Blood neutrophils automated count (number/volume) 2.0 10*3 1.8-7.8 Blood lymphocytes automated count (number/volume) 0.3 10*3 1.0-4.0 Blood monocytes automated count (number/volume) 0. 3 10*3 0.0-1.0 Automated eosinophil count 0.0 10*3/uL 0 .0-0.3 Automated blood basophil count (count/volume) 0.0 10*3/uL 0.0-0.1 Comprehensive metabolic panel - 08/01/19 09:45 Serum or plasma sodium measurement (moles/volume) 139 mmol/L 135-145 Serum or plasma potassium measurement (moles/volume) 3.8 mmol/L 3.6-5.0 Serum or plasma chloride measurement (moles/volume) 101 mmol/L 98-107 Carbon dioxide 29 mmol/L 21-32 Serum or plasma anion gap determination (moles/volume) 9 mmol/L 5-14 Serum or plasma urea nitrogen measurement (mass/volume ) 18 mg/dL 7-18 Serum or plasma creatinine measurement (mass/volume) 0.64 mg/dL 0.60-1.30 Serum or plasma urea nitrogen/creatinine mass ratio 28 NRG Serum or plasma creatinine measurement w ith calculation of estimated glomerular filtration rate > NRG Serum or plasma glucose measurement (mass/volume) 144 mg/dL 70-105 Serum or plasma calcium measurement (mass/volume) 9.3 mg/dL 8.5-10.1 Serum or plasma total bilirubin measurement (mass/volu me) 1.0 mg/dL 0.1-1.0 Serum or plasma alkaline phosphatase shiv surement (enzymatic activity/volume) 79 U/L 40-136 Serum or plasma aspartate aminotransfera se measurement (enzymatic activity/volume) 18 U/L 5-34 Serum or plasma alanine aminotransferase measurement (enzymatic activity/volume) 24 U/L 0-55 Serum or plasma protein measurement (mass/volume) 6.9 g/dL 6.4-8.2 Serum or plasma albumin measurement (mass/volume) 3.7 g/dL 3.2-4.5 CALCIUM CORRECTED 9.5 mg/dL 8.5-10.1 Serum or plasma C reactive protein measu rement (mass/volume) - 08/01/19 09:45 Serum or plasma C reactive protein measurement (mass/v olume) 12.89 mg/dL 0.00-0.50 PT panel in platelet poor plasma by coag ulation assay - 08/01/19 09:45 Prothrombin time (PT) in platelet poor plasma by coagu lation assay 13.0 s 12.2-14.7 INR in platelet poor plasma or blood by coagulation as say 0.9 0.8-1.4 Activated partial thromboplastin time (a PTT) in platelet poor plasma bycoagulation assay - 08/01/19 09:45 Activated partial thromboplastin time (a PTT) in platelet poor plasma bycoagulation assay 24 s 24-35 Blood lactic acid measurement (moles/vol ume) - 08/01/19 09:45 Blood lactic acid measurement (moles/volume) 0.97 mmol/L 0.50-2.00 Sputum Gram stain - 08/01/19 10:00 Sputum Gram stain Mixed Bacterlial Malini wit h Many Gram negative diplococci NRG Bacterial sputum culture - 08/01/19 10:0 0 FREE TEXT EXTERNAL BETA LACTAMASE POSITIVE NRG QUANTITY OF GROWTH Abundant Growth NRG FREE TEXT ENTRY 2 PRELIM RAPID ID TEST AT [facility] 08/02 7:55 NRG FREE TEXT ENTRY 3 RML CONFIRMED ID 08/03/19 17:05 NRG Bacterial sputum culture [id number] NRG Bacterial blood culture - 08/01/19 12:23 Bacterial blood culture NG NRG Bacterial blood culture - 08/01/19 12:26 Bacterial blood culture NG NRG Complete urinalysis with reflex to cultu re - 08/01/19 12:39 Urine color determination DARK YELLOW N RG Urine clarity determination SL CLOUDY N RG Urine pH measurement by test strip 7.5 5-9 Specific gravity of urine by test strip 1.020 1.016-1.022 Urine protein assay by test strip, semi-quantitative NEGATIVE NEGATIVE Urine glucose detection by automated test strip NE GATIVE NEGATIVE Erythrocytes detection in urine sediment by light micr oscopy NEGATIVE NEGATIVE Urine ketones detection by automated test strip NE GATIVE NEGATIVE Urine nitrite detection by test strip NEGATIVE NEGATIVE Urine total bilirubin detection by test strip NEGA TIVE NEGATIVE Urine urobilinogen measurement by automated test strip (mass/volume) 1.0 mg/dL < = 1.0 Urine leukocyte esterase detection by dipstick NEG ATIVE NEGATIVE Automated urine sediment erythrocyte cou nt by microscopy (number/high power field) RARE NRG Automated urine sediment leukocyte count by microscopy (number/high power field) RARE NRG Bacteria detection in urine sediment by light microsco py TRACE NRG Squamous epithelial cells detection in u rine sediment by light microscopy 5-10 NRG Crystals detection in urine sediment by light microsco py NONE NRG Casts detection in urine sediment by light microscopy NONE NRG Mucus detection in urine sediment by light microscopy NEGATIVE NRG Complete urinalysis with reflex to culture NO NRG Bacterial urine culture - 08/01/19 12:39 Bacterial urine culture NG NRG Blood lactic acid measurement (moles/vol ume) - 08/16/19 13:40 Blood lactic acid measurement (moles/volume) 1.57 mmol/L 0.50-2.00 PT panel in platelet poor plasma by coag ulation assay - 08/16/19 13:40 Prothrombin time (PT) in platelet poor plasma by coagu lation assay 13.6 s 12.2-14.7 INR in platelet poor plasma or blood by coagulation as say 1.0 0.8-1.4 Activated partial thromboplastin time (a PTT) in platelet poor plasma bycoagulation assay - 08/16/19 13:40 Activated partial thromboplastin time (a PTT) in platelet poor plasma bycoagulation assay 30 s 24-35 Comprehensive metabolic panel - 08/16/19 13:40 Serum or plasma sodium measurement (moles/volume) 136 mmol/L 135-145 Serum or plasma potassium measurement (moles/volume) 3.8 mmol/L 3.6-5.0 Serum or plasma chloride measurement (moles/volume) 96 mmol/L 98-107 Carbon dioxide 33 mmol/L 21-32 Serum or plasma anion gap determination (moles/volume) 7 mmol/L 5-14 Serum or plasma urea nitrogen measurement (mass/volume ) 14 mg/dL 7-18 Serum or plasma creatinine measurement (mass/volume) 0.72 mg/dL 0.60-1.30 Serum or plasma urea nitrogen/creatinine mass ratio 19 NRG Serum or plasma creatinine measurement w ith calculation of estimated glomerular filtration rate > NRG Serum or plasma glucose measurement (mass/volume) 160 mg/dL 70-105 Serum or plasma calcium measurement (mass/volume) 8.7 mg/dL 8.5-10.1 Serum or plasma total bilirubin measurement (mass/volu me) 0.4 mg/dL 0.1-1.0 Serum or plasma alkaline phosphatase shiv surement (enzymatic activity/volume) 98 U/L 40-136 Serum or plasma aspartate aminotransfera se measurement (enzymatic activity/volume) 13 U/L 5-34 Serum or plasma alanine aminotransferase measurement (enzymatic activity/volume) 15 U/L 0-55 Serum or plasma protein measurement (mass/volume) 6.3 g/dL 6.4-8.2 Serum or plasma albumin measurement (mass/volume) 3.3 g/dL 3.2-4.5 CALCIUM CORRECTED 9.3 mg/dL 8.5-10.1 Serum or plasma lithium measurement (mol es/volume) - 08/16/19 13:40 BNP PT 189.2 pg/mL <100.0 Complete blood count (CBC) with automate d white blood cell (WBC) differential - 08/16/19 13:40 Blood leukocytes automated count (number/volume) 5.8 10*3/uL 4.3-11.0 Blood erythrocytes automated count (number/volume) 2.57 10*6/uL 4.35-5.85 Venous blood hemoglobin measurement (mass/volume) 8.0 g/dL 11.5-16.0 Blood hematocrit (volume fraction) 25 % 35-52 Automated erythrocyte mean corpuscular volume 98 [ foz_us] 80-99 Automated erythrocyte mean corpuscular h emoglobin (mass per erythrocyte) 31 pg 25-34 Automated erythrocyte mean corpuscular h emoglobin concentration measurement (mass/volume) 32 g/dL 32-36 Automated erythrocyte distribution width ratio 16. 4 % 10.0- 14.5 Automated blood platelet count (count/volume) 398 10*3/uL 130-400 Automated blood platelet mean volume measurement 9.4 [foz_us] 7.4-10.4 Automated blood neutrophils/100 leukocytes 50 % 42-75 Automated blood lymphocytes/100 leukocytes 20 % 12-44 Blood monocytes/100 leukocytes 30 % 0-12 Automated blood eosinophils/100 leukocytes 1 % 0-10 Automated blood basophils/100 leukocytes 0 % 0-10 Blood neutrophils automated count (number/volume) 2.9 10*3 1.8-7.8 Blood lymphocytes automated count (number/volume) 1.1 10*3 1.0-4.0 Blood monocytes automated count (number/volume) 1. 7 10*3 0.0-1.0 Automated eosinophil count 0.0 10*3/uL 0 .0-0.3 Automated blood basophil count (count/volume) 0.0 10*3/uL 0.0-0.1 Manual absolute plasma cell count - 10/30 13:40 Blood monocytes/100 leukocytes 22 % NRG Manual blood segmented neutrophils/100 leukocytes 57 % NRG Blood band neutrophils/100 leukocytes 5 % NRG Manual blood lymphocytes/100 leukocytes 16 % NRG Manual eosinophils/100 leukocytes in nose 0 % NRG Manual blood basophils/100 leukocytes 0 % NRG Blood anisocytosis detection by light microscopy S LIGHT NRG Blood macrocytes detection by light microscopy SLI GHT NRG Bacterial blood culture - 08/16/19 13:40 Bacterial blood culture NG NRG Complete urinalysis with reflex to cultu re - 08/16/19 13:55 Urine color determination YELLOW NRG Urine clarity determination CLEAR NR G Urine pH measurement by test strip 6.0 5-9 Specific gravity of urine by test strip 1.020 1.016-1.022 Urine protein assay by test strip, semi-quantitative TRACE NEGATIVE Urine glucose detection by automated test strip NE GATIVE NEGATIVE Erythrocytes detection in urine sediment by light micr oscopy NEGATIVE NEGATIVE Urine ketones detection by automated test strip NE GATIVE NEGATIVE Urine nitrite detection by test strip NEGATIVE NEGATIVE Urine total bilirubin detection by test strip NEGA TIVE NEGATIVE Urine urobilinogen measurement by automated test strip (mass/volume) 1.0 mg/dL < = 1.0 Urine leukocyte esterase detection by dipstick NEG ATIVE NEGATIVE Automated urine sediment erythrocyte cou nt by microscopy (number/high power field) NONE NRG Automated urine sediment leukocyte count by microscopy (number/high power field) RARE NRG Bacteria detection in urine sediment by light microsco py TRACE NRG Squamous epithelial cells detection in u rine sediment by light microscopy 2-5 NRG Crystals detection in urine sediment by light microsco py NONE NRG Casts detection in urine sediment by light microscopy NONE NRG Mucus detection in urine sediment by light microscopy SMALL NRG Complete urinalysis with reflex to culture CULTURE PENDING NRG Bacterial urine culture - 08/16/19 13:55 Bacterial urine culture GRAM POS M NRG COLONY COUNT 20,000 CFU/ML NRG FTX;REPORTABLE SUSCEPTIBILITY REPORTED 08/19 10:55 NRG FREE TEXT ENTRY 2 PRELIM RAPID ID TEST AT [facility] 08/17 9:45 NRG FREE TEXT ENTRY 3 RML CONFIRMED ID 08/18 11:05 NRG Dirithromycin susceptibility test by dis k diffusion - 08/16/19 13:55 Vancomycin susceptibility test by minimum inhibitory c oncentration 2 NRG Levofloxacin susceptibility test by minimum inhibitory concentration <= NRG Ampicillin susceptibility test by minimum inhibitory c oncentration 1 NRG Nitrofurantoin susceptibility test by mi nimum inhibitory concentration <= NRG Linezolid susceptibility test by minimum inhibitory co ncentration <= NRG Daptomycin susc PRITI 2 NRG Bacterial blood culture - 08/16/19 14:16 Bacterial blood culture NG NRG Sputum Gram stain - 08/16/19 14:28 Sputum Gram stain Mixed Bacterial Malini NRG Bacterial sputum culture - 08/16/19 14:2 8 FREE TEXT EXTERNAL BETAL LACTAMASE POSITIVE NRG QUANTITY OF GROWTH Moderate Growth NRG FREE TEXT ENTRY 2 SEE COMMENTS NRG Bacterial sputum culture [id number] NRG RED CELLS LEUKO REDUCED AS1 - 08/16/19 1 4:47 RED CELLS LEUKO REDUCED AS1 N OT AVAILABLE NRG Blood type T Indirect antibody screen pa ladonna - 08/16/19 14:47 WRISTBAND NUMBER [id number] NRG ABO+Rh group AN NRG Blood group antibody screen NEGATIVE NR G Complete blood count (CBC) with automate d white blood cell (WBC) differential - 08/17/19 03:29 Blood leukocytes automated count (number/volume) 5.3 10*3/uL 4.3-11.0 Blood erythrocytes automated count (number/volume) 2.71 10*6/uL 4.35-5.85 Venous blood hemoglobin measurement (mass/volume) 8.5 g/dL 11.5-16.0 Blood hematocrit (volume fraction) 26 % 35-52 Automated erythrocyte mean corpuscular volume 95 [ foz_us] 80-99 Automated erythrocyte mean corpuscular h emoglobin (mass per erythrocyte) 31 pg 25-34 Automated erythrocyte mean corpuscular h emoglobin concentration measurement (mass/volume) 33 g/dL 32-36 Automated erythrocyte distribution width ratio 16. 4 % 10.0- 14.5 Automated blood platelet count (count/volume) 355 10*3/uL 130-400 Automated blood platelet mean volume measurement 9.1 [foz_us] 7.4-10.4 Automated blood neutrophils/100 leukocytes 39 % 42-75 Automated blood lymphocytes/100 leukocytes 24 % 12-44 Blood monocytes/100 leukocytes 35 % 0-12 Automated blood eosinophils/100 leukocytes 2 % 0-10 Automated blood basophils/100 leukocytes 1 % 0-10 Blood neutrophils automated count (number/volume) 2.0 10*3 1.8-7.8 Blood lymphocytes automated count (number/volume) 1.3 10*3 1.0-4.0 Blood monocytes automated count (number/volume) 1. 8 10*3 0.0-1.0 Automated eosinophil count 0.1 10*3/uL 0 .0-0.3 Automated blood basophil count (count/volume) 0.0 10*3/uL 0.0-0.1 Comprehensive metabolic panel - 08/17/19 03:29 Serum or plasma sodium measurement (moles/volume) 138 mmol/L 135-145 Serum or plasma potassium measurement (moles/volume) 3.6 mmol/L 3.6-5.0 Serum or plasma chloride measurement (moles/volume) 101 mmol/L 98-107 Carbon dioxide 30 mmol/L 21-32 Serum or plasma anion gap determination (moles/volume) 7 mmol/L 5-14 Serum or plasma urea nitrogen measurement (mass/volume ) 12 mg/dL 7-18 Serum or plasma creatinine measurement (mass/volume) 0.69 mg/dL 0.60-1.30 Serum or plasma urea nitrogen/creatinine mass ratio 17 NRG Serum or plasma creatinine measurement w ith calculation of estimated glomerular filtration rate > NRG Serum or plasma glucose measurement (mass/volume) 93 mg/dL 70-105 Serum or plasma calcium measurement (mass/volume) 8.3 mg/dL 8.5-10.1 Serum or plasma total bilirubin measurement (mass/volu me) 1.0 mg/dL 0.1-1.0 Serum or plasma alkaline phosphatase shiv surement (enzymatic activity/volume) 94 U/L 40-136 Serum or plasma aspartate aminotransfera se measurement (enzymatic activity/volume) 17 U/L 5-34 Serum or plasma alanine aminotransferase measurement (enzymatic activity/volume) 15 U/L 0-55 Serum or plasma protein measurement (mass/volume) 6.1 g/dL 6.4-8.2 Serum or plasma albumin measurement (mass/volume) 3.1 g/dL 3.2-4.5 CALCIUM CORRECTED 9.0 mg/dL 8.5-10.1 Automated blood complete blood count (he mogram) panel - 08/18/19 04:06 Blood leukocytes automated count (number/volume) 5.3 10*3/uL 4.3-11.0 Blood erythrocytes automated count (number/volume) 2.76 10*6/uL 4.35-5.85 Venous blood hemoglobin measurement (mass/volume) 8.6 g/dL 11.5-16.0 Blood hematocrit (volume fraction) 27 % 35-52 Automated erythrocyte mean corpuscular volume 96 [ foz_us] 80-99 Automated erythrocyte mean corpuscular h emoglobin (mass per erythrocyte) 31 pg 25-34 Automated erythrocyte mean corpuscular h emoglobin concentration measurement (mass/volume) 33 g/dL 32-36 Automated erythrocyte distribution width ratio 16. 9 % 10.0- 14.5 Automated blood platelet count (count/volume) 381 10*3/uL 130-400 Automated blood platelet mean volume measurement 9.0 [foz_us] 7.4-10.4 Whole blood basic metabolic panel - 12/30 04:06 Serum or plasma sodium measurement (moles/volume) 141 mmol/L 135-145 Serum or plasma potassium measurement (moles/volume) 3.5 mmol/L 3.6-5.0 Serum or plasma chloride measurement (moles/volume) 101 mmol/L 98-107 Carbon dioxide 32 mmol/L 21-32 Serum or plasma anion gap determination (moles/volume) 8 mmol/L 5-14 Serum or plasma urea nitrogen measurement (mass/volume ) 10 mg/dL 7-18 Serum or plasma creatinine measurement (mass/volume) 0.67 mg/dL 0.60-1.30 Serum or plasma urea nitrogen/creatinine mass ratio 15 NRG Serum or plasma creatinine measurement w ith calculation of estimated glomerular filtration rate > NRG Serum or plasma glucose measurement (mass/volume) 85 mg/dL 70-105 Serum or plasma calcium measurement (mass/volume) 8.6 mg/dL 8.5-10.1 Complete blood count (CBC) with automate d white blood cell (WBC) differential - 11/05/19 14:05 Blood leukocytes automated count (number/volume) 10.9 10*3/uL 4.3-11.0 Blood erythrocytes automated count (number/volume) 3.36 10*6/uL 4.35-5.85 Venous blood hemoglobin measurement (mass/volume) 10.9 g/dL 11.5-16.0 Blood hematocrit (volume fraction) 34 % 35-52 Automated erythrocyte mean corpuscular volume 101 [foz_us] 80-99 Automated erythrocyte mean corpuscular h emoglobin (mass per erythrocyte) 32 pg 25-34 Automated erythrocyte mean corpuscular h emoglobin concentration measurement (mass/volume) 32 g/dL 32-36 Automated erythrocyte distribution width ratio 13. 5 % 10.0- 14.5 Automated blood platelet count (count/volume) 360 10*3/uL 130-400 Automated blood platelet mean volume measurement 9.6 [foz_us] 7.4-10.4 Automated blood neutrophils/100 leukocytes 60 % 42-75 Automated blood lymphocytes/100 leukocytes 29 % 12-44 Blood monocytes/100 leukocytes 8 % 0-12 Automated blood eosinophils/100 leukocytes 2 % 0-10 Automated blood basophils/100 leukocytes 1 % 0-10 Blood neutrophils automated count (number/volume) 6.5 10*3 1.8-7.8 Blood lymphocytes automated count (number/volume) 3.2 10*3 1.0-4.0 Blood monocytes automated count (number/volume) 0. 9 10*3 0.0-1.0 Automated eosinophil count 0.2 10*3/uL 0 .0-0.3 Automated blood basophil count (count/volume) 0.1 10*3/uL 0.0-0.1 Whole blood basic metabolic panel - 10/12 11/29 14:05 Serum or plasma sodium measurement (moles/volume) 138 mmol/L 135-145 Serum or plasma potassium measurement (moles/volume) 4.5 mmol/L 3.6-5.0 Serum or plasma chloride measurement (moles/volume) 101 mmol/L 98-107 Carbon dioxide 24 mmol/L 21-32 Serum or plasma anion gap determination (moles/volume) 13 mmol/L 5-14 Serum or plasma urea nitrogen measurement (mass/volume ) 15 mg/dL 7-18 Serum or plasma creatinine measurement (mass/volume) 0.66 mg/dL 0.60-1.30 Serum or plasma urea nitrogen/creatinine mass ratio 23 NRG Serum or plasma creatinine measurement w ith calculation of estimated glomerular filtration rate > NRG Serum or plasma glucose measurement (mass/volume) 100 mg/dL 70-105 Serum or plasma calcium measurement (mass/volume) 10.1 mg/dL 8.5-10.1 Complete blood count (CBC) with automate d white blood cell (WBC) differential - 11/07/19 10:05 Blood leukocytes automated count (number/volume) 21.3 10*3/uL 4.3-11.0 Blood erythrocytes automated count (number/volume) 3.54 10*6/uL 4.35-5.85 Venous blood hemoglobin measurement (mass/volume) 11.5 g/dL 11.5-16.0 Blood hematocrit (volume fraction) 36 % 35-52 Automated erythrocyte mean corpuscular volume 101 [foz_us] 80-99 Automated erythrocyte mean corpuscular h emoglobin (mass per erythrocyte) 33 pg 25-34 Automated erythrocyte mean corpuscular h emoglobin concentration measurement (mass/volume) 32 g/dL 32-36 Automated erythrocyte distribution width ratio 13. 6 % 10.0- 14.5 Automated blood platelet count (count/volume) 384 10*3/uL 130-400 Automated blood platelet mean volume measurement 9.3 [foz_us] 7.4-10.4 Automated blood neutrophils/100 leukocytes 85 % 42-75 Automated blood lymphocytes/100 leukocytes 7 % 12-44 Blood monocytes/100 leukocytes 8 % 0-12 Automated blood eosinophils/100 leukocytes 1 % 0-10 Automated blood basophils/100 leukocytes 0 % 0-10 Blood neutrophils automated count (number/volume) 18.1 10*3 1.8-7.8 Blood lymphocytes automated count (number/volume) 1.4 10*3 1.0-4.0 Blood monocytes automated count (number/volume) 1. 7 10*3 0.0-1.0 Automated eosinophil count 0.1 10*3/uL 0 .0-0.3 Automated blood basophil count (count/volume) 0.0 10*3/uL 0.0-0.1 Encounters ACCT No. Visit Date/Time Discharge Status Pt. Type Provider Facility Loc./Unit Complaint [id number] 11/03/2014 09:04:00 11/03/2014 23:59: 59 CLS Outpatient DAPHNE YUSUF APRN [id number] 10/25/2014 15:45:00 10/25/2014 23:59: 59 CLS Outpatient DAPHNE YUSUF APRN [id number] 07/20/2014 12:26:00 07/20/2014 23:59: 59 CLS Outpatient HAO PEREZ APRN [id number] 06/22/2014 10:24:00 06/22/2014 23:59: 59 CLS Outpatient DAPHNE YUSUF APRN S [id number] 04/13/2014 14:23:00 04/13/2014 23:59: 59 CLS Outpatient HAO PEREZ APRN [id number] 03/09/2014 11:12:00 03/09/2014 23:59: 59 CLS Outpatient PILI YUSUF APRNA S [id number] 03/09/2014 11:12:00 03/09/2014 23:59: 59 CLS Outpatient PILI YUSUF APRNA S [id number] 11/08/2013 10:10:00 11/08/2013 23:59: 59 CLS Outpatient PILI YUSUF APRNA S [id number] 08/29/2013 07:22:00 08/29/2013 23:59: 59 CLS Outpatient MIKHAIL RIVAS MD [id number] 08/04/2013 09:29:00 08/04/2013 23:59: 59 CLS Outpatient JESSICA YUSUF APRNNDA S [id number] 08/01/2013 15:38:00 08/01/2013 23:59: 59 CLS Outpatient JESSICA YUSUF APRNNDA S [id number] 06/29/2013 14:03:00 06/29/2013 23:59: 59 CLS Outpatient PILI YUSUF APRNA S [id number] 06/07/2013 15:49:00 06/07/2013 23:59: 59 CLS Outpatient MADELIN GUEVARANJESSICADAPHNE S [id number] 05/28/2013 12:56:00 05/28/2013 23:59: 59 CLS Outpatient MADELIN GUEVARANJESSICADAPHNE S [id number] 04/01/2018 11:12:00 04/01/2018 23:59: 00 DIS Outpatient Calderon Mayer [id number] 09/24/2017 11:17:00 09/24/2017 23:59: 00 DIS Outpatient Calderon Mayer [id number] 05/07/2016 10:06:00 Document Registration [id number] 09/16/2019 11:59:00 020 00:01:00 DIS Outpatient JACINDA ALFORDMARCUS [facility] ONC [id number] 09/16/2019 11:19:00 23:59:59 CLS Outpatient MARCUS MONACO MD, V [facility] RAD CANCER OF MOUTH,SEIZURE [id number] 09/05/2019 10:03:00 23:59:59 CLS Outpatient MARCUS MONACO MD, V [facility] RAD CA OF MOUTH [id number] 08/16/2019 15:53:00 13:10:00 DIS Inpatient RASHID ALFORD, SATNAM Castro [facility] CSD PNEUMONIA,ANEMAI,BILAT SEGMENTAL PE [id number] 08/01/2019 08:52:00 14:04:00 DIS Emergency CICI ALFORD, BALJIT Cason [facility] ER FEEDING TUBE IS SUES [id number] 07/12/2019 11:16:00 10:28:00 DIS Outpatient MARCUS MONACO MD, V [facility] ONC [id number] 07/08/2019 08:22:00 13:55:00 DIS Outpatient JEANNE EASON DO [facility] CANCER OF THE MOUTH [id number] 07/05/2019 13:04:00 13:27:00 DIS Outpatient JEANNE EASON DO [facility] PREOP CANCER OF THE MOUTH [id number] 06/08/2019 09:29:00 12:35:00 DIS Outpatient JEANNE EASON DO [facility] SCCA MOUTH [id number] 06/07/2019 11:24:00 12:21:00 DIS Outpatient JEANNE EASON DO [facility] PREOP PORT PLACEMENT [id number] 05/03/2019 07:26:00 23:59:59 CLS Outpatient MARJORIE EDUARDO [facility] CARD SOB [id number] 04/18/2019 10:45:00 23:59:59 CLS Outpatient KETAN DUARTE APRN [facility] RT SOB,TOBACCO USE,COPD,COUGH,ALLERGIC RHINITIS [id number] 10/30/2018 18:17:00 20:02:00 DIS Emergency DANA HUMPHREY MD [facility] ER FEVER [id number] 09/21/2018 10:33:00 23:59:59 CLS Outpatient DAPHNE YUSUF [employer]NA[employer] [facility] RAD LYMPHADENOPATHY OF LT CERVICAL REGION [id number] 09/16/2018 13:07:00 23:59:59 CLS Outpatient DAPHNE YUSUF [employer] [facility] RAD LYMPHADENOPATHY [id number] 09/02/2018 10:29:00 12:59:00 DIS Emergency PALOMO SALAZAR APRN [facility] ER LEFT LEG PAIN [id number] 08/18/2018 12:49:00 23:59:59 CLS Outpatient MARJORIE EDUARDO [employer] [facility] CARD MITRAL REGURGIT ATION [id number] 04/06/2018 07:56:00 23:59:59 CLS Outpatient JESSICA ALFORD FACC, AUGIE ELI CC DS [facility] CATH AV SLIM RE -ENTRY TACHYCARDIA [id number] 03/18/2018 16:39:00 18:25:00 DIS Emergency DANA HUMPHREY MD [facility] ER PROBLEMS WITH F EEDING TUBE,BACK PAIN [id number] 03/05/2018 08:56:00 23:59:59 CLS Outpatient ADELE ANN [facility] RAD DYSPHAGIA [id number] 12/03/2017 13:15:00 14:53:00 DIS Emergency PALOMO SALAZAR GARAGEMAN [facility] ER SOB [id number] 10/14/2017 11:51:00 04/04/2 018 23:59:59 CLS Outpatient DAPHNE YUSUF [facility] RAD LUQ PAIN [id number] 06/01/2017 10:15:00 017 23:59:59 CLS Preadmit LULÚ MCKEON DO [facility] RAD COPD J43.8 [id number] 04/09/2017 13:00:00 017 14:15:00 DIS Inpatient JULIA JIMENEZ DO [facility] 4TH SEPSIS PNEUMO DEANNE [id number] 01/07/2017 00:15:00 017 13:43:00 DIS Inpatient ALPESH LUNA MD [facility] 4TH SEVERE SEPSIS;PNEUMONIA W/HYPOXIA;CELLULITIS R LEG [id number] 12/24/2016 05:57:00 017 12:57:00 DIS Inpatient SABINO MADERA MD [facility] 4TH RIGHT KNEE OSTEOARTHRIT IS [id number] 11/14/2016 13:29:00 017 16:13:00 DIS Outpatient DAPHNE YUSUF [facility] REHAB GENERAL WEAKNESS [id number] 12/17/2016 09:56:00 017 14:51:00 DIS Outpatient SABINO MADERA MD [facility] PREOP RIGHT KNEE OSTEOARTHRI TIS [id number] 12/15/2016 12:53:00 017 23:59:59 CLS Outpatient LULÚ MCKEON DO [facility] RT J43.8 COPD [id number] 11/19/2016 12:28:00 017 23:59:59 CLS Outpatient KETAN DUARTE APRN [facility] RAD R91.1,R09.02,Z7 2.0 [id number] 08/21/2016 07:15:00 017 23:59:59 CLS Outpatient GRETEL TOTH MD [facility] ENDO C-DIFF [id number] 07/28/2016 00:10:00 017 23:59:59 CLS Preadmit MARLENA HURTADO [facility] ONC [id number] 04/28/2016 14:43:00 00:01:00 DIS Outpatient MARLENA HURTADO [facility] ONC [id number] 07/22/2016 14:39:00 017 11:00:00 DIS Inpatient JAMES CARTAGENA MD [facility] 4TH DIARRHEA DEBILITY DEHYD RATION COPD [id number] 06/11/2016 12:25:00 14:10:00 DIS Inpatient JAMES CARTAGENA MD [facility] 4TH SEPSIS PNEUMONIA DIARRH EA HYPOVOLEMIA [id number] 05/20/2016 08:14:00 016 23:59:59 CLS Outpatient JESSICA ALFORD FACC, ALI FACP CC DS [facility] CARD RT LEG SWEL LING,CHEST DISCOMFORT,PAD [id number] 05/10/2016 15:42:00 016 12:00:00 DIS Inpatient MAURO SHI MD [facility] 4TH C DIFF. DIARRHEA/RECURR ENT [id number] 05/02/2016 10:20:00 016 23:59:59 CLS Outpatient JESSICA ALFORD FACJude, ALI FACP CC DS [facility] RAD RT LEG SWELLING,PAD,CHEST DISCOMFORT [id number] 04/21/2016 14:03:00 016 12:05:00 DIS Inpatient JAMES CARTAGENA MD [facility] 4TH FEVER, AMS, DIARRHEA, E LEVATED WBC [id number] 03/27/2016 12:33:00 016 15:54:00 DIS Outpatient MARLENA HURTADO [facility] ONC [id number] 04/01/2016 07:55:00 016 23:59:59 CLS Outpatient GRETEL TOTH MD [facility] SDC ANEMIA [id number] 03/28/2016 09:54:00 23:59:59 CLS Outpatient GRETEL TOTH MD [facility] PREOP ANEMAI [id number] 03/27/2016 10:03:00 12:25:00 DIS Outpatient GRETEL TOTH MD [facility] SDC ANEMIA [id number] 03/24/2016 09:35:00 23:59:59 CLS Preadmit DAPHNE YUSUF [facility] REHAB STRENGTHENING AND TRANS FERS;RA [id number] 03/24/2016 10:54:00 10:59:00 DIS Outpatient GRETEL TOTH MD [facility] PREOP ANEMIA [id number] 02/26/2016 11:18:00 23:59:59 CLS Outpatient DAPHNE YUSUF [facility] LAB IRON DIFICIENCY, ANEMI A [id number] 02/03/2016 19:41:00 016 21:07:00 DIS Emergency KAM ALFORD, DANA Pradhan [facility] ER THROAT SWELLING /PAIN [id number] 01/31/2016 12:51:00 016 16:30:00 DIS Outpatient GRETEL TOTH MD [facility] SDC IRON DEFICIENCY, ANEMI A, DIARRHEA [id number] 01/29/2016 05:48:00 11:03:00 DIS Outpatient GRETEL TOTH MD [facility] PREOP IRON DEF., ANEMIA, MARY KATE RRHEA [id number] 01/08/2016 19:23:00 13:50:00 DIS Inpatient JAVON KHAN DO, V ia [facility] 4TH DIARRHEA,LEUKOCYTOSIS [id number] 12/17/2015 12:39:00 23:59:59 CLS Outpatient LULÚ MCKEON DO [facility] RT COPD,ANXIETY,SOB,TOBACC O USE [id number] 12/09/2015 10:02:00 13:53:00 DIS Emergency PALOMO SALAZAR GARAGEMAN [facility] ER FALL [id number] 11/22/2015 14:45:00 23:59:59 CLS Outpatient KETAN DUARTE APRN [facility] RAD COPD,COUGH,WHEE ZE [id number] 11/20/2015 13:06:00 23:59:59 CLS Outpatient KETAN DUARTE APRN [facility] LAB COPD,COUCH,WHEE ZE,SLEEP DISTURBANCE [id number] 11/20/2015 12:59:00 23:59:59 CLS Outpatient JESSICA ALFORD FACC, AUGIE ELI CC DS [facility] CARD SOB [id number] 11/08/2015 16:25:00 23:59:59 CLS Outpatient NAM GASPAR [facility] RAD SHORTNESS OF BR EATH,EDEMA [id number] 10/23/2015 17:12:00 16:50:00 DIS Inpatient RASHID ALFORD, SATNAM Castro [facility] 4TH COPD EXACERBATION [id number] 09/04/2015 12:54:00 13:33:00 DIS Outpatient DAPHNE YUSUF [facility] REHAB CVA [id number] 06/28/2015 14:51:00 23:59:59 CLS Outpatient DAPHNE YUSUF [facility] RAD PVD [id number] 05/24/2015 12:57:00 17:00:00 DIS Outpatient MIKHAIL RIVAS MD [facility] REHAB CVA [id number] 04/10/2015 13:15:00 00:01:00 DIS Outpatient MIKHAIL RIVAS MD [facility] REHAB CVA [id number] 01/08/2015 14:27:00 12:00:00 DIS Inpatient JEANNE JETER MD [facility] IRF CVA [id number] 01/03/2015 17:16:00 015 14:23:00 DIS Inpatient SATNAM MIKE MD [facility] 4TH CVA [id number] 03/30/2014 10:02:00 014 14:19:00 DIS Outpatient JORGE AUGUST MD [facility] CATH ASOD,LEG PAIN [id number] 02/17/2014 23:10:00 014 16:30:00 DIS Inpatient KHAN DO, JAVON K V [facility] 4TH PNEUMONIA/COPD FLARE [id number] 02/16/2014 07:57:00 13:14:00 DIS Outpatient JORGE AUGUST MD [facility] ASOD,LEG PAIN [id number] 12/22/2013 07:16:00 23:59:59 CLS Outpatient MARJORIE EDUARDO [facility] CARD PVD,PSVT [id number] 08/06/2013 14:13:00 18:01:00 DIS Inpatient MARISSA WYNN MD [facility] SURGICAL CP,TACHYCARDIA,SOB [id number] 07/04/2013 10:00:00 23:59:59 CLS Outpatient JUNIOR KWOK MD [facility] ANTICOAGULANT THERAPY [id number] 06/27/2013 15:45:00 23:59:59 CLS Outpatient JUNIOR KWOK MD [facility] ANTICOAG THERAPY [id number] 06/20/2013 12:00:00 23:59:59 CLS Outpatient JUNIOR ORNELAS MD [facility] ANTIGOAGULANT THERAPY [id number] 06/06/2013 14:15:00 23:59:59 CLS Outpatient JUNIOR ORNELAS MD [facility] ANTICOAG THERAPY [id number] 12/01/2019 11:15:00 Anthony MONACO MD, MARCUS [facility] CANCER OF MOUTH [id number] 11/07/2019 10:12:00 Document Registration [id number] 11/05/2019 14:18:00 Document Registration [id number] 01/04/2015 08:31:00 Document Registration [id number] 11/23/2017 05:05:00 Document Registration [id number] 11/22/2016 19:06:00 Document Registration [id number] 02/17/2017 17:08:00 Document Registration [id number] 02/18/2017 18:09:00 Document Registration [id number] 04/02/2016 18:06:00 Document Registration
[2019-11-07 10:45] LABS: BAND NEUTROPHILS 2 %; BASOPHILS % (MANUAL) 1 %; EOSINOPHILS % (MANUAL) 1 %; LYMPHOCYTES % (MANUAL) 4 %; MONOCYTES % (MANUAL) 2 %; NEUTROPHILS % (MANUAL) 90 %; RBC MORPH NORMAL
[2019-11-07] MEDS ORDERED: CLINDAMYCIN 600 MG/4ML (CLEOCIN) VIAL IM ONE (10:45)
[2019-11-07 11:00] VITALS: BP 137/76
== END 2019-11-07 11:01 | disposition home or self-care (01) ==
LOC: EDUNIT# 09:35 → ER 09:36
DX: R04.0 Epistaxis (principal); D72.829 Elevated white blood cell count, unspecified; J43.9 Emphysema, unspecified; E78.00 Pure hypercholesterolemia, unspecified; F41.9 Anxiety disorder, unspecified; F32.9 Major depressive disorder, single episode, unspecified; Z85.818 Personal history of malignant neoplasm of other sites of lip, oral cavity, and pharynx; Z86.73 Personal history of transient ischemic attack (TIA), and cerebral infarction without residual deficits; Z79.01 Long term (current) use of anticoagulants; Z88.8 Allergy status to other drugs, medicaments and biological substances; Z88.1 Allergy status to other antibiotic agents; Z79.82 Long term (current) use of aspirin; Z87.891 Personal history of nicotine dependence; Z80.1 Family history of malignant neoplasm of trachea, bronchus and lung; Z82.49 Family history of ischemic heart disease and other diseases of the circulatory system
CPT/HCPCS: 36415; 80053; 85007; 85027; 85610; 85730; 99284

== ENCOUNTER 2019-11-11 02:47 | Emergency (ER) | payer MEDICARE, MEDICAID ==
[~2019-11-11] VITALS: Ht 160 cm; Wt 68.0 kg
[2019-11-11 02:53] VITALS: BP 148/81
[2019-11-11] MEDS ORDERED: OXYMETAZOLINE (AFRIN) 0.05% NA 30 ML BTL ONE (02:53)
--- OUTSIDE RECORDS SUMMARY | 2019-11-11 02:55 | XMS REPORT | Encounter Summary ---
Author Author [facility] Organization [facility] Address Unknown Phone Unavailable Care Team Providers Care Early Morning Babysitter Name Role Phone RubinaDarling Domenica DO Unavailable Unavailable Herman CastrejonD Unavailable Unavailable Didi Louie APRN PCP Devin Samuels DO Unavailable Reason for Visit * Reason Comments Other Encounter Details Care Team Description Date Type Department Lorie Jacob PA-C [address] [place] [address] Other 05/19/2019 Telephone [facility] [address] [facility] [address] [place] [address] Social History Date Tobacco Use [...] Lorie Jacob PA-C - 05/19/2019 3:27 PM PERSONAL INVESTMENT ADVISER Spoke with Ratna, daughter, regarding recommendations from TB. Recommendations are for chemoradiation. Patient prefers location in [place], [place]. Is already e stablished with Rad Onc (but has not seen since most recent surgery). Informed t hem NN would call to set up these appointments. ONAL INVESTMENT ADVISER documented in this encounter Plan of Treatment Not on filedocumented as of this encounter Visit Diagnoses Not on filedocumented in this encounter
--- OUTSIDE RECORDS SUMMARY | 2019-11-11 02:55 | XMS REPORT | Encounter Summary ---
Author Author [facility] Organization [facility] Address Unknown Phone Unavailable Care Team Providers Care Cyber Security Engineer Name Role Phone RubinaDarling Domenica DO Unavailable Unavailable Herman CastrejonD Unavailable Unavailable Didi Louie APRN PCP Devin Samuels DO Unavailable Reason for Visit * Reason Comments Surgical Followup swelling Encounter Details Care Team Description Date Type Department Jacy Villegas MD [address] [place] [address] Surgical Followup (swelling) 05/15/2019 Telephone [facility] [address] [place] [address] Social History Date Tobacco Use [...] Jacy Villegas MD - 05/15/2019 12:05 PM AUDIO VISUAL DESIGN ENGINEER Contacted by patient's 11/3 AM. He reports [...] in clinic on 05/17 as previously scheduled. O VISUAL DESIGN ENGINEER documented in this encounter Plan of Treatment Not on filedocumented as of this encounter Visit Diagnoses Not on filedocumented in this encounter
--- OUTSIDE RECORDS SUMMARY | 2019-11-11 02:55 | XMS REPORT | Encounter Summary ---
Author Author [facility] Organization [facility] Address Unknown Phone Unavailable Care Team Providers Care Outside Sales Professional Name Role Phone RubinaDarling Domenica DO Unavailable Unavailable Herman CastrejonD Unavailable Unavailable Didi Louie APRN PCP Devin Samuels DO Unavailable Reason for Visit * Reason Comments Follow-up Phone Call Encounter Details Care Team Description Date Type Department Lorie Jacob PA-C [address] [place] [address] Follow-up Phone Call 05/24/2019 Telephone The [facility] [address] [place] [address] Social History Date Tobacco Use [...] Lorie Jacob PA-C - 05/24/2019 3:12 PM COAL TOWER OPERATOR Spoke with patient and Jaclyn - they were under the impression that they were on ly to come today if there was a problem, patient's swelling has improved signifi cantly, as well as pain. Scheduled for Med onc on 06/01 and Rad onc on 06/08. Will follow with Dr. León 1 month s/p end of AT. TOWER OPERATOR documented in this encounter Plan of Treatment Not on filedocumented as of this encounter Visit Diagnoses Not on filedocumented in this encounter
--- OUTSIDE RECORDS SUMMARY | 2019-11-11 02:55 | XMS REPORT | Clinical Summary ---
Author Author [facility] Organization [facility] Address Unknown Phone Unavailable Care Team Providers Care General Office Assistant Name Role Phone RubinaDarling Domenica DO Unavailable Unavailable Herman CastrejonD Unavailable Unavailable Didi Louie APRN PCP Devin Samuels DO Unavailable Source Comments Some departments are not documenting in the electronic medical record. If you d o not see the information that you expected, contact Release of Information in [facility] [employer] Information Management department at [phone] for further assistan ce in locating additional records.[facility] Allergies Comments Active Allergy Reactions Severity Noted [...] Added automatically from request for yolette navarro [id number] PSVT (paroxysmal supraventricular tachycardia) 01/07 Overview: ECHO 11/20/15: normal LV with EF of 60-6 5%, trivial MR and TR, mild diastolic dysfunction. 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 Overview: Added automatically from request for yolette navarro [id number] 01/21/18 EP study and successful slow pa [...] AM CDT Temperature 14 07/04/2013 2:17 PM SENIOR DRAFTER Respiratory Rate 94% 05/10/2019 9:34 AM CDT [...] Phone Address Plan / Dates Group Medicare [facility] MEDICARE [facility] xxxxxxxxx 2019-P COMMUNITY resent PLAN [place] Medicaid [facility] MEDICAID [facility] xxxxxxxxxxx 2017-P COMMUNITY resent PLAN [place] [facility] xxxxxxxxxxx 01/29/2018 - [place] Present HEALTH/SNF /JAIL 66 [phone] Advance Directives Patient Book Sewer Explanation Type Date Recorded Advance 04/27/2019 12:37 [...]
--- OUTSIDE RECORDS SUMMARY | 2019-11-11 02:55 | XMS REPORT | Encounter Summary ---
Author Author [facility] Organization [facility] Address Unknown Phone Unavailable Care Team Providers Care Foreign Language Professor Name Role Phone RubinaDarling Domenica DO Unavailable Unavailable Herman CastrejonD Unavailable Unavailable Didi Louie APRN PCP Devin Samuels DO Unavailable Reason for Visit * Reason Comments Navigation Follow Up Encounter Details Care Team Description Date Type Department Hesham Russo MD [address] [facility] [address] [place] [address] [phone] Navigation Follow Up 05/23/2019 Telephone [facility] [address] [address] Social History Date Tobacco Use Types Packs/Day [...] Samara Beck RN - 05/23/2019 2:33 PM J2EE ANDROID DEVELOPER Tumor Board Recommendation from 05/18/19, Oncology referral to Dr Tuttle (Med Onc) and and Dr Hewitt (Rad Onc) Location: Dr Tuttle on 06/01/19 at 8:[address] Guevara on 06/08/19- Olga schuster pt with these appt. Both at [facility] Pt informed and agrees with plan. I spoke with pt's daughter Ratna with the ab ove information. Samara Beck RN J2EE ANDROID DEVELOPER documented in this encounter Plan of Treatment Not on filedocumented as of this encounter Visit Diagnoses Not on filedocumented in this encounter
--- OUTSIDE RECORDS SUMMARY | 2019-11-11 02:55 | XMS REPORT | Encounter Summary ---
Author Author [facility] Organization [facility] Address Unknown Phone Unavailable Care Team Providers Care Chassis Wirer Name Role Phone RubinaDarling Domenica DO Unavailable Unavailable Herman CastrejonD Unavailable Unavailable Didi Louie APRN PCP Devin Samuels DO Unavailable Reason for Visit * Reason Comments Post Operative Visit Encounter Details Care Team Description Date Type Department Lorie Jacob PA-C [address] [place] [address] Oral cancer (HCC) (Primary Dx) 05/17/2019 Office Visit [facility] [address] [place] [address] Social History Date Tobacco Use [...] Comments Vital Sign 119/73 05/17/2019 10:51 AM CINETECHNICIAN Blood Pressure 76 05/17/2019 10:51 AM CINETECHNICIAN Pulse - - Temperature - - Respiratory Rate - - Oxygen Saturation - - Inhaled Oxygen Concentration 81.6 kg (180 lb) 05/17/2019 10:51 AM CINETECHNICIAN Weight 160 cm (5' 3") 05/17/2019 10:51 AM CINETECHNICIAN Height 31.89 05/17/2019 10:51 AM CINETECHNICIAN Body Mass Index documented in this encounter Functional Status Date of Assessment Functional Status Response 02/16/2018 Does the patient have a hearing impairment: No documented as of this encounter Patient Instructions * Patient Instructions* Lorie Jacob PA-C - 05/17/2019 11:00 AM CINETECHNICIAN Scar Care 1. Beginning 2 weeks post [...] 1 week to check on surgical site. TECHNICIAN documented in this encounter Progress Notes * Lorie Jacob PA-C - 05/17/2019 11:00 AM CINETECHNICIAN Date of Service: 05/17/2019 HPI: Lona Coburn was seen 05/17/2019 [facility] for postop follow up visit S/P excision of right neck cancer with suprahyoid neck di ssection by Dr. Russo on 05/09/19. She has a history of [id number] right FOM SC Ca, s/p excision without adjuvant treatment in 02/2018. Now 8 days out from most recent surgery. She is doing fairly well. Taking 5 mg oxycodone q 4 hours for p ain. Baseline on [place] prior to surgery, is not taking currently, [...] poorly differentiated and keratinizing. 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 [...] reviewed with patient, instructions attached to AVS. TECHNICIAN documented in this encounter Plan of Treatment Not on filedocumented as of this encounter Visit Diagnoses Diagnosis Oral cancer (HCC) Malignant neoplasm of mouth, unspecifie d site documented in this encounter
--- OUTSIDE RECORDS SUMMARY | 2019-11-11 02:55 | XMS REPORT | Encounter Summary ---
Author Author [facility] Organization [facility] Address Unknown Phone Unavailable Care Team Providers Care Leather Whitener Name Role Phone RubinaDarling Domenica DO Unavailable Unavailable Herman CastrejonD Unavailable Unavailable Didi Louie APRN PCP Devin Samuels DO Unavailable Reason for Visit * Reason Comments Other Encounter Details Care Team Description Date Type Department Lorie Jacob PA-C [address] [place] [address] Other 08/25/2019 Telephone [facility] [address] [facility] [address] [place] [address] Social History Date Tobacco Use [...] Louise Black MA - 08/25/2019 11:55 AM SENIOR GENETIC COUNSELOR Daughter returned call completed radiation on 08/23, scheduled w/Dr. Russo on 09/20 @ 10:45 am, confirmed, v/u. OR GENETIC COUNSELOR * Telephone Encounter - Louise Black MA - 08/25/2019 10:43 AM SENIOR GENETIC COUNSELOR Lm for return call to get scheduled w/Dr. Russo 1 month after end of radiatio n date, request return call. OR GENETIC COUNSELOR documented in this encounter Plan of Treatment Not on filedocumented as of this encounter Visit Diagnoses Not on filedocumented in this encounter
--- OUTSIDE RECORDS SUMMARY | 2019-11-11 02:55 | XMS REPORT | Encounter Summary ---
Author Author [facility] Organization [facility] Address Unknown Phone Unavailable Care Team Providers Care Time Study Clerk Name Role Phone RubinaDarling Domenica DO Unavailable Unavailable Herman CastrejonD Unavailable Unavailable Didi Louie APRN PCP Devin Samuels DO Unavailable Reason for Visit * Reason Comments Follow Up Encounter Details Care Team Description Date Type Department Lorie Jacob PA-C [address] [place] [address] Hesham Russo MD [address] [facility] [address] [place] [address] Oral cancer (HCC) (Primary Dx) 09/21/2019 Office Visit [facility] [address] [place] [address] Social History Date Tobacco Use [...] g[facility] at [facility] f or follow-up of 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 She then underwent adjuvant BELLING MACHINE OPERATOR and finish ed earlier this year. She has been sick on multiple occasions since that time wi th the flu and other URI's. No other issues or concerns since that time. Past Medical/Surgical History She has a past medical history of Alcoholism ([facility]), Anxiety disorder, Arthritis , Carotid artery stenosis, COPD with emphysema (HCC), Depression, High cholester ol, Neuropathy, Oral cancer (HCC), Pancreatitis (2003), PSVT (paroxysmal suprave ntricular tachycardia) ([facility]), Rheumatoid arthritis (HCC), Seasonal allergic reac tion, [...] right neck 3x5 cm on followed by BELLING MACHINE OPERATOR. YESY on exam today. PLAN: F/u in [...] Orders have been ordered Patient inactive in [facility]. Imaging: Yes Special Equipment: N/A CT NECK [...]
--- OUTSIDE RECORDS SUMMARY | 2019-11-11 03:00 | XMS REPORT ---
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 502319566 Problem COPD (chronic obstructive pulmonary disease) J44.9 Active 33296488 Problem Hypertension I10 Active 5394139 3 Problem Primary insomnia F51.01 Active 397 2004 Problem Hx of Clostridium difficile infection Z86.19 Active 145557195 Problem Chronic obstructive pulmon disease w acute lower resp infc t J44.0 Active 956980075 Problem History of arthroplasty of right knee Z96.651 Active 489606892 Problem Leg pain, left M79.605 Active 98667 7008 Problem Status post partial amputation of left foot Z89.43 2 Active 161185705 Problem Edema R60.9 Active 451336050 Problem Tobacco abuse, 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 Ac tive 330263153 Problem Anxiety F41.9 Active 24076301 Problem Chronic pain syndrome G89.4 Active 994751622 Problem Anemia, unspecified type D64.9 Activ e 251211894 Problem Depression, unspecified depression type F32.9 Active 13264264 Problem Other chronic pain G89.29 Active 8 5254833 Problem Iron deficiency anemia, unspecified iron deficiency an emia type D50.9 Active 71174328 Problem Insomnia, unspecified G47.00 Active 673467919 Problem Seasonal allergic rhinitis due to pollen J30.1 Active 45819515 Problem History of oral cancer Z85.819 Active 141971231 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 36 6046693 Problem Atrial fibrillation I48.91 Active 07874225 Problem Chronic obstructive pulmonary disease with (acute) exa cerbation J44.1 Active 350578010 Problem Rheumatoid arthritis M06.9 Active 59265419 Problem Dysthymia F34.1 Active 90703727 Problem Neuropathy G62.9 Active 624326091 Problem Rheumatoid arthritis with po sitive rheumatoid factor, involving unspecified site M05.9 Active 66851940 Problem Hemiplegia and hemiparesis f ollowing cerebral infarction affecting right dominant side I69.351 Active 481937778 Problem Cancer of neck C76.0 Active 06154 9000 ALLERGIES No Information ENCOUNTERS Encounter Location Date Diagnosis [facility] [address] [facility] [id number] [address] [place] [phone] November, [facility] [address] [facility] [id number] [address] [place] [phone] Oct, Chronic pain syndrome G89.4 [facility] [address] [id number] [address] [place] [phone] Oct, [facility] [address] [id number] [address] [place] [phone] Oct, [facility] [address] [facility] [id number] [address] [place] [phone] Oct, Anxiety F41.9 [facility] [address] [id number] [address] [place] [phone] 08 Oct, 2019 Thrush B37.0 [facility] [address] [id number] [address] [place] [phone] Oct, [facility] [address] [id number] [address] [place] [phone] Sep, Chronic pain syndrome G89.4 [facility] [address] [id number] [address] [place] [phone] Sep, Chronic pain syndrome G89.4 and Rheumatoid arthritis with positive rheumatoid factor, involving unspecified site M05.9 [facility] [address] [facility] [id number] [address] [place] [phone] 04 Sep, 2019 [facility] [address] [facility] [id number] [address] [place] [phone] 28 Aug, 2019 Chronic pain syndrome G89.[address] [id number] [address] 19 Aug, 2019 Chronic obstructive pulmonar y disease with (acute) exacerbation J44.1 [facility] [address] [id number] [address] [place] [phone] 12 Aug, 2019 Single subsegmental pulmonar y embolism without acute cor pulmonale I26.93 ; Rheumatoid arthritis with positive rheumatoid factor, involving unspecified site M05.9 ; Chronic pain syndrome G89.4 ; Leg pain, left M79.605 and 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 [facility] [address] [facility] [id number] [address] [place] [phone] 11 Aug, 2019 [facility] [address] [facility] [id number] [address] [place] [phone] 11 Aug, 2019 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 [facility] [address] [facility] [id number] [address] [place] [phone] 07 Aug, 2019 Chronic pain syndrome G89.4 [facility] [address] [facility] [id number] [address] [place] [phone] Jul, Primary insomnia F51.01 [facility] [address] [facility] [id number] [address] [place] [phone] Jul, Chronic pain syndrome G89.4 [facility] [address] [facility] [id number] [address] [place] [phone] Jul, [facility] [address] [facility] [id number] [address] [place] [phone] Jul, [facility] [address] [facility] [id number] [address] [place] [phone] Jul, Rheumatoid arthritis with po sitive rheumatoid factor, involving unspecified site M05.9 and Chronic pain syndrome G89.4 [facility] [address] [id number] [address] [place] [phone] Jul, [facility] [address] [id number] [address] [place] [phone] Jun, Rheumatoid arthritis with po sitive rheumatoid factor, involving unspecified site M05.9 [facility] [address] [id number] [address] [place] [phone] Jun, Chronic pain syndrome G89.4 ; Rheumatoid arthritis with positive rheumatoid factor, involving unspecified site M05.9 and Anxiety F41.9 [facility] [address] [id number] [address] [place] [phone] Jun, [facility] [address] [id number] [address] [place] [phone] Jun, Hemorrhoids, unspecified hem orrhoid type K64.9 [facility] [address] [id number] [address] [place] [phone] Jun, Hemorrhoids, unspecified hem orrhoid type K64.9 ; Cancer of neck C76.0 and Drug-induced constipation K59.03 [facility] [address] [id number] [address] [place] [phone] Jun, [facility] [address] [id number] [address] [place] [phone] Jun, [facility] [address] [id number] [address] [place] [phone] Jun, Rheumatoid arthritis with po sitive rheumatoid factor, involving unspecified site M05.9 [facility] [address] [id number] [address] [place] [phone] May, [facility] [address] [id number] [address] [place] [phone] May, Rheumatoid arthritis with po sitive rheumatoid factor, involving unspecified site M05.9 [facility] [address] [id number] [address] [place] [phone] Apr, Primary insomnia F51.01 [facility] [address] [id number] [address] [place] [phone] Apr, Rheumatoid arthritis with po sitive rheumatoid factor, involving unspecified site M05.9 [facility] [address] [id number] [address] [place] [phone] Mar, [facility] [address] [id number] [address] [place] [phone] Mar, [facility] [address] [facility] [id number] [address] [place] [phone] Mar, Rheumatoid arthritis with po sitive rheumatoid factor, involving unspecified site M05.9 ; Atrial fibrillation I48.91 ; Chronic pain syndrome G89.4 ; Iron deficiency anemia, unspecified iron deficiency anemia type D50.9 and Hemiplegia and hemiparesis following cerebral infarction affecting right dominant side I69.351 [facility] [address] [facility] [id number] [address] [place] [phone] Mar, Chronic pain syndrome G89.4 and Primary insomnia F51.01 [facility] [address] [facility] [id number] [address] [place] [phone] Mar, Rheumatoid arthritis with po sitive rheumatoid factor, involving unspecified site M05.9 [facility] [address] [id number] [address] [place] [phone] Feb, Rheumatoid arthritis with po sitive rheumatoid factor, involving unspecified site M05.9 ; Chronic pain syndrome G89.4 ; Atrial fibrillation I48.91 ; Iron deficiency anemia, unspecified iron deficiency anemia type D50.9 ; Hemiplegia and hemiparesis following cerebral infarction affecting right dominant side I69.351 and Primary insomnia F51.01 [facility] [address] [facility] [id number] [address] [place] [phone] Feb, Chronic pain syndrome G89.4 [facility] [address] [id number] [address] [place] [phone] Jan, Chronic pain syndrome G89.4 [facility] [address] [id number] [address] [place] [phone] Jan, [facility] [address] [id number] [address] [place] [phone] Jan, [facility] [address] [id number] [address] [place] [phone] Dec, [facility] [address] [id number] [address] [place] [phone] Dec, Chronic pain syndrome G89.4 [facility] [address] [id number] [address] [place] [phone] Dec, [facility] [address] [id number] [address] [place] [phone] November, Chronic pain syndrome G89.4 [facility] [address] [id number] [address] [place] [phone] Oct, Chronic pain syndrome G89.4 [facility] [address] [id number] [address] [place] [phone] Oct, [facility] [address] [id number] [address] [place] [phone] Sep, Chronic pain syndrome G89.4 [facility] [address] [id number] [address] [place] [phone] Sep, Leg pain, left M79.605 ; Rig ht leg pain M79.604 and Reactive cervical nodes R59.0 [facility] [address] [id number] [address] [place] [phone] 14 Sep, 2018 [facility] [address] [facility] [id number] [address] [place] [phone] Sep, Neuropathy G62.9 [facility] [address] [id number] [place] [id number] Sep, [facility] [address] [facility] [id number] [address] [place] [phone] Sep, Lymphadenopathy of left cerv ical region R59.0 [facility] [address] [place] [id number] [address] [place] [phone] Sep, Lymphadenopathy of left cerv ical region R59.0 and Neuropathy G62.9 [place] [address] [place] [id number] [address] [place] [phone] Aug, Chronic pain syndrome G89.4 [place] [address] [place] [id number] [address] [place] [phone] Aug, [place] [address] [phone] Aug, Peripheral vascular disease, unspecified I73.9 ; Other chronic pain G89.29 ; Chronic obstructive pulmon disease w acute lower resp infct J44.0 and Primary insomnia F51.01 [facility] [address] [place] [id number] [address] [place] [phone] Aug, Chronic pain syndrome G89.4 [place] [address] [phone] Jul, Chronic pain syndrome G89.4 [facility] [address] [phone] Jun, Chronic pain syndrome G89.4 [facility] [address] [place] [id number] [address] [place] [phone] May, Chronic pain syndrome G89.4 [facility] [address] [place] [id number] [address] [place] [phone] Apr, Cough R05 and Viral illness B34.9 [facility] [address] [place] [id number] [address] [place] [phone] Apr, Encounter for immunization Z 23 [facility] [address] [place] [id number] [place] [phone] Apr, Chronic pain syndrome G89.4 [facility] [address] [id number] [address] [place] [phone] 07 Apr, 2018 Left acute otitis media H66. 92 [facility] [address] [id number] [address] [place] [id number] 26 Mar, 2018 Rheumatoid arthritis M06.9 ; Other chronic pain G89.29 ; History of oral cancer Z85.819 and History of tachycardia Z87.898 [facility] [address] [id number] [address] [place] [phone] 14 Mar, 2018 Chronic pain syndrome G89.4 [facility] [address] [id number] [address] [place] [phone] Feb, Chronic pain syndrome G89.4 [facility] [address] [id number] [address] [place] [phone] Feb, Chronic pain syndrome G89.4 [facility] [address] [id number] [address] [place] [phone] Jan, Chronic pain syndrome G89.4 [facility] [address] [id number] [address] [place] [phone] Jan, [facility] [address] [id number] [address] [place] [phone] Dec, Chronic pain syndrome G89.4 [facility] [address] [id number] [address] [place] [phone] November, Chronic pain syndrome G89.4 [facility] [address] [id number] [address] [place] [phone] November, [facility] [address] [id number] [address] [place] [phone] Oct, Chronic pain syndrome G89.4 [facility] [address] [id number] [address] [place] [phone] Oct, [facility] [address] [facility] [id number] [address] [place] [phone] Oct, Chronic pain syndrome G89.4 [facility] [address] [facility] [id number] [address] [place] [phone] Oct, [facility] [address] [facility] [id number] [address] [place] [phone] Oct, [facility] [address] [facility] [id number] [address] [place] [phone] Sep, Left upper quadrant pain R10 .12 ; Chronic pain syndrome G89.4 ; Left lower quadrant pain R10.32 ; Other chronic pain G89.29 ; Sacrococcygeal disorders, not elsewhere classified M53.3 and Seasonal allergic rhinitis due to pollen J30.1 [facility] [address] [facility] [id number] [address] [place] [phone] Sep, Chronic pain syndrome G89.4 [facility] [address] [facility] [id number] [address] [place] [phone] Sep, [facility] [address] [facility] [id number] [address] [place] [phone] Aug, Chronic pain syndrome G89.4 [facility] [address] [facility] [id number] [address] [place] [phone] Aug, [facility] [address] [facility] [id number] [address] [place] [phone] Aug, Insomnia, unspecified G47.00 [facility] [address] [facility] [id number] [address] [place] [phone] Jul, [facility] [address] [facility] [id number] [address] [place] [phone] Jul, [facility] [address] [facility] [id number] [address] [place] [phone] Jul, Chronic pain syndrome G89.4 [facility] [address] [facility] [id number] [address] [place] [phone] Jun, Chronic pain syndrome G89.4 [facility] [address] [facility] [id number] [address] [place] [phone] Jun, Chronic pain syndrome G89.4 [facility] [address] [id number] [address] [place] [phone] May, [facility] [address] [facility] [id number] [address] [place] [phone] May, Shortness of breath R06.02 ; Peripheral vascular disease, unspecified I73.9 ; Pain in right knee M25.561 ; Other chronic pain G89.29 ; Chest wall pain R07.89 ; Chronic pain syndrome G89.4 ; Primary insomnia F51.01 and Ear pain, left H92.02 [facility] [address] [facility] [id number] [address] [place] [phone] May, Anxiety F41.9 [place] [address] [facility] [id number] [address] [place] [phone] Apr, Pneumonia due to infectious organism, unspecified laterality, unspecified part of lung J18.9 ; Hypoxia R09.02 ; Bradycardia R00.1 ; History of Clostridium difficile Z87.19 and Primary insomnia F51.01 [place] [address] [facility] [id number] [address] [place] [phone] Apr, Anxiety F41.9 [place] [address] [facility] [id number] [address] [place] [phone] Apr, [facility] [address] [facility] [id number] [address] [place] [id number] Mar, Anxiety F41.9 [facility] [address] [facility] [id number] [address] [place] [phone] Feb, [place] [address] [facility] [id number] [address] [place] [phone] Feb, [facility] [address] [facility] [id number] [address] [place] [phone] Feb, Abnormal finding on urinalys is R82.90 [facility] [address] [facility] [id number] [address] [place] [phone] Feb, [facility] [address] [facility] [id number] [address] [place] [phone] Feb, Shortness of breath R06.02 ; Tachycardia R00.0 ; Cough R05 ; Ill feeling R68.89 and Abnormal finding on urinalysis R82.90 [facility] [address] [facility] [id number] [address] [place] [phone] Feb, Anxiety F41.9 [facility] [address] [facility] [id number] [place] [phone] Feb, Sore throat J02.9 and Acute diffuse otitis externa of left ear H60.312 [facility] [address] [phone] Jan, [facility] [address] [facility] [id number] [address] [place] [phone] Jan, [facility] [address] [id number] Jan, [facility] [address] [place] [id number] [place] [phone] Jan, Depression, unspecified depr ession type F32.9 ; Chronic bronchitis, unspecified chronic bronchitis type J42 ; Chronic pain syndrome G89.4 and Anxiety F41.9 [facility] [address] [facility] [id number] [address] [place] [phone] Jan, [facility] [address] [facility] [id number] [address] [place] [phone] Jan, [facility] [address] [facility] [id number] [address] [place] [phone] Jan, [facility] [id number] [place] [id number] Jan, Chronic pain syndrome G89.4 [facility] [id number] [place] [id number] Dec History of right knee surgery Z98.890 [place] [address] [place] [id number] [address] [place] [phone] Dec, [facility] [address] [place] [id number] [address] [place] [phone] Dec, Chronic pain syndrome G89.4 [facility] [address] [place] [id number] [address] [place] [phone] November, Anxiety F41.9 [facility] [address] [place] [id number] [place] [phone] November, Acute cystitis without hemat uria N30.00 [facility] [address] [place] [id number] [address] [place] [phone] November, Fever, unspecified fever cau se R50.9 and Acute cystitis without hematuria N30.00 [facility] [address] [place] [id number] [address] [place] [phone] November, Chronic pain syndrome G89.4 [place] [address] [place] [id number] [address] [place] [phone] Oct, Anxiety F41.9 [facility] [address] [place] [id number] [address] [place] [phone] Oct, Chronic pain syndrome G89.4 [place] [address] [place] [id number] [address] [place] [phone] Oct, Chronic pain syndrome G89.4 [place] [address] [place] [id number] [address] [place] [phone] Oct, [place] [address] [place] [id number] [place] [phone] Oct, Chronic pain syndrome G89.4 ; Pain in right knee M25.561 ; History of Clostridium difficile Z87.19 ; Iron deficiency anemia, unspecified iron deficiency anemia type D50.9 ; Peripheral vascular disease, unspecified I73.9 and Atrial fibrillation I48.91 [facility] [address] [facility] [id number] [address] [place] [phone] Oct, [facility] [address] [facility] [id number] [address] [place] [phone] Oct, Chronic pain syndrome G89.4 [facility] [address] [facility] [id number] [address] [place] [phone] Sep, [facility] [address] [facility] [id number] [address] [place] [phone] Sep, Depression, unspecified depr ession type F32.9 ; Chronic bronchitis, unspecified chronic bronchitis type J42 ; Chronic pain syndrome G89.4 and Anxiety F41.9 [facility] [address] [place] [id number] Sep History of Clostridium difficile infection Z86.19 and History of stroke Z86.73 [facility] [id number] [place] [id number] Sep, Anxiety F41.9 [facility] [address] [facility] [id number] [address] [place] [phone] Sep, Chronic pain syndrome G89.4 [facility] [address] [facility] [id number] [address] [place] [phone] Sep, [facility] [address] [place] [id number] [place] [address] [id number] Sep, [facility] [address] [facility] [id number] [address] [place] [phone] Aug, Anxiety F41.9 [facility] [address] [facility] [id number] [address] [place] [phone] Aug, Anxiety F41.9 [facility] [address] [facility] [id number] [address] [place] [phone] 16 Aug, 2016 [facility] [address] [facility] [id number] [address] [place] [phone] 14 Aug, 2016 Acute knee pain, unspecified laterality M25.569 [facility] [address] [facility] [id number] [address] [place] [phone] Aug, [facility] [address] [facility] [id number] [address] [place] [phone] 09 Aug, 2016 Chronic pain syndrome G89.4 [facility] [address] [facility] [id number] [address] [place] [phone] 08 Aug, 2016 [facility] [address] [facility] [id number] [address] [place] [phone] Aug, [facility] [address] [facility] [id number] [address] [place] [id number] Jul, [facility] [address] [facility] [id number] [address] [place] [phone] Jul, Anxiety F41.9 [facility] [address] [place] [id number] [address] [place] [id number] Jul, Clostridium difficile diarrh ea A04.7 [facility] [address] [place] [id number] Jul Clostridium difficile diarrhea A04.7 ; Chronic pain syndrome G89.4 ; Chronic obstructive pulmon disease w acute lower resp infct J44.0 and Pain in right knee M25.561 [facility] [address] [place] [id number] [place] [id number] Jul, [facility] [address] [facility] [id number] [address] [place] [phone] Jul, Anxiety F41.9 and Chronic pa in syndrome G89.4 [facility] [address] [facility] [id number] [address] [place] [phone] Jun, Anxiety F41.9 [facility] [address] [facility] [id number] [address] [place] [phone] Jun, Rheumatoid arthritis 714.0 [facility] [address] [facility] [id number] [address] [place] [phone] Jun, Chronic pain syndrome G89.4 [facility] [address] [id number] [address] [place] [phone] Jun, [facility] [address] [id number] [address] [place] [phone] Jun, [facility] [address] [id number] [address] [place] [phone] Jun, History of pneumonia Z87.01 and History of Clostridium difficile Z87.19 [facility] [address] [id number] [address] [place] [phone] Jun, [facility] [address] [id number] [address] [place] [phone] May, [facility] [address] [id number] [address] [place] [phone] May, Anxiety F41.9 [facility] [address] [id number] [address] [place] [phone] May, Chronic pain syndrome G89.4 [facility] [address] [id number] [address] [place] [phone] 15 May, 2016 Chronic bronchitis, unspecif ied chronic bronchitis type J42 [facility] [address] [id number] [address] [place] [phone] May, [facility] [address] [id number] [address] [place] [phone] May, C. difficile diarrhea A04.7 ; Peripheral edema R60.9 ; COPD (chronic obstructive pulmonary disease) J44.9 ; Rheumatoid arthritis, involving unspecified site, unspecified rheumatoid factor presence M06.9 ; Pain in right knee M25.561 ; Pain in left knee M25.562 and Other chronic pain G89.29 [facility] [address] [id number] [address] [place] [phone] May, [facility] [address] [id number] [address] [place] [phone] May, [facility] [address] [id number] [address] [place] [phone] May, Anxiety F41.9 [facility] [address] [id number] [address] [place] [phone] Apr, [facility] [address] [id number] [address] [place] [phone] Apr, Chronic pain syndrome G89.4 [facility] [address] [id number] [address] [place] [phone] Apr, Leg pain, left M79.605 [facility] [address] [id number] [address] [place] [phone] Apr, [facility] [address] [id number] [address] [place] [phone] Apr, [facility] [address] [id number] [address] [place] [phone] Apr, [facility] [address] [id number] [address] [place] [phone] 28 Mar, 2016 Chronic pain syndrome G89.4 [facility] [address] [id number] [address] [place] [phone] 22 Mar, 2016 Acute frontal sinusitis, rec urrence not specified J01.10 [facility] [address] [id number] [address] [place] [phone] 20 Mar, 2016 Iron deficiency anemia, unsp ecified iron deficiency anemia type D50.9 ; Rheumatoid arthritis with positive rheumatoid factor, involving unspecified site M05.9 and Depression, unspecified depression type F32.9 [facility] [address] [id number] [address] [place] [id number] 13 Mar, 2016 Iron deficiency anemia, unsp ecified iron deficiency anemia type D50.9 ; Depression, unspecified depression type F32.9 and Rheumatoid arthritis with positive rheumatoid factor, involving unspecified site M05.9 [facility] [address] [facility] [id number] [address] [place] [phone] Mar, [facility] [address] [facility] [id number] [address] [place] [phone] Mar, [facility] [address] [facility] [id number] [address] [place] [phone] Feb, Chronic pain syndrome G89.4 [facility] [address] [facility] [id number] [address] [place] [phone] Feb, Status post partial amputati on of left foot Z89.432 ; Status post CVA Z86.73 ; Hemiplegia G81.90 and Anemia, unspecified type D64.9 [facility] [address] [facility] [id number] [address] [place] [phone] Feb, [facility] [address] [facility] [id number] [address] [place] [phone] Feb, Anemia, unspecified type D64 .9 [facility] [address] [facility] [id number] [address] [place] [phone] Feb, [facility] [address] [facility] [id number] [address] [place] [phone] Feb, Iron deficiency anemia, unsp ecified iron deficiency anemia type D50.9 [facility] [address] [facility] [id number] [address] [place] [phone] Feb, [facility] [address] [facility] [id number] [address] [place] [phone] Feb, Chronic bronchitis, unspecif ied chronic bronchitis type J42 [facility] [address] [facility] [id number] [address] [place] [phone] Feb, Iron deficiency anemia, unsp ecified iron deficiency anemia type D50.9 [facility] [address] [facility] [id number] [address] [place] [phone] Feb, Chronic pain syndrome G89.4 [facility] [address] [id number] [address] [place] [phone] Feb, Anemia, unspecified type D64 .9 and Hypoxia R09.02 [facility] [address] [id number] [address] [place] [phone] Feb, Anemia, unspecified type D64 .9 [facility] [address] [id number] [address] [place] [phone] Jan, [facility] [address] [facility] [id number] [address] [place] [phone] Jan, Anemia, unspecified type D64 .9 [facility] [address] [id number] [address] [place] [phone] Jan, [facility] [address] [facility] [id number] [address] [place] [phone] Jan, Anemia, unspecified type D64 .9 [facility] [address] [facility] [id number] [address] [place] [phone] Jan, Anemia, unspecified type D64 .9 [facility] [address] [id number] [address] [place] [phone] Jan, [facility] [address] [facility] [id number] [address] [place] [phone] Jan, Anemia, unspecified type D64 .9 [facility] [address] [facility] [id number] [address] [place] [phone] Jan, [facility] [address] [facility] [id number] [address] [place] [id number] Jan, [facility] [address] [facility] [id number] [address] [place] [phone] Jan, Chronic pain syndrome G89.4 [facility] [address] [facility] [id number] [address] [place] [phone] Jan, Anemia, unspecified type D64 .9 [facility] [address] [id number] [address] [place] [phone] Jan, Dysthymia F34.1 ; Cervicalgi a M54.2 ; Fatigue, unspecified type R53.83 and Depression, unspecified depression type F32.9 [facility] [address] [place] [id number] [address] [place] [phone] Dec, [place] [address] [phone] Dec, Anxiety F41.9 [place] [address] [phone] 08 Dec, 2015 Chronic pain syndrome G89.4 [place] [address] [phone] November, [place] [address] [address] November, Edema R60.9 and Dizziness R4 2 [place] [address] [phone] November, [place] [address] [phone] November, [place] [address] [phone] November, COPD (chronic obstructive pu lmonary disease) J44.9 ; Increased tracheal secretions J39.8 and Edema R60.9 [facility] [address] [phone] Oct, [facility] [address] [phone] Oct, Shortness of breath R06.02 a nd Edema R60.9 [place] [address] [place] [id number] [address] [place] [phone] Oct, Chronic bronchitis, unspecif ied chronic bronchitis type J42 ; Peripheral vascular disease, unspecified I73.9 ; Rheumatoid arthritis M06.9 and Atrial fibrillation I48.91 [facility] [address] [id number] [address] [place] [phone] Oct, [facility] [address] [id number] [address] [place] [phone] Oct, [facility] [address] [facility] [id number] [address] [place] [id number] Oct, [facility] [address] [id number] [address] [place] [phone] Oct, [facility] [address] [id number] [address] [place] [phone] Oct, COPD exacerbation J44.1 [facility] [address] [facility] [id number] [address] [place] [phone] Sep, [facility] [address] [facility] [id number] [address] [place] [phone] Sep, [facility] [address] [facility] [id number] [address] [place] [phone] Sep, [facility] [address] [facility] [id number] [address] [place] [phone] Aug, [facility] [address] [facility] [id number] [address] [place] [phone] Aug, Status post CVA V12.54 and P VD (peripheral vascular disease) I73.9 [facility] [address] [id number] [address] [place] [phone] Aug, Bronchitis J40 ; COPD (chron ic obstructive pulmonary disease) J44.9 and Dysthymia F34.1 [facility] [address] [facility] [id number] [address] [place] [phone] Aug, [facility] [address] [facility] [id number] [address] [place] [phone] Jul, [facility] [address] [facility] [id number] [address] [place] [phone] Jul, [facility] [address] [facility] [id number] [address] [place] [phone] Jul, [facility] [address] [id number] [address] [place] [phone] Jun, [facility] [address] [facility] [id number] [address] [place] [phone] Jun, [facility] [address] [facility] [id number] [address] [place] [phone] Jun, Peripheral vascular disease I73.9 [facility] [address] [id number] [address] [place] [phone] Jun, [facility] [address] [facility] [id number] [address] [place] [phone] Jun, [facility] [address] [facility] [id number] [address] [place] [phone] Jun, Leg pain, left M79.605 ; Dys phagia, unspecified dysphagia R13.10 ; Insomnia, unspecified type G47.00 ; PVD (peripheral vascular disease) I73.9 and 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 [facility] [address] [facility] [id number] [address] [place] [phone] May, [facility] [address] [facility] [id number] [address] [place] [phone] May, [facility] [address] [id number] [address] [place] [phone] May, [facility] [address] [facility] [id number] [address] [place] [phone] May, [facility] [address] [facility] [id number] [address] [place] [phone] May, [facility] [address] [facility] [id number] [address] [place] [phone] Apr, [facility] [address] [facility] [id number] [address] [place] [phone] Apr, [facility] [address] [id number] [address] [place] [phone] Mar, [facility] [address] [facility] [id number] [address] [place] [phone] Mar, [facility] [address] [facility] [id number] [address] [place] [phone] Feb, [facility] [address] [facility] [id number] [address] [place] [phone] Feb, Nicotine abuse 305.1 ; Arthr algia 719.40 and Status post CVA V12.54 [facility] [address] [facility] [id number] [address] [place] [id number] Feb, [facility] [address] [facility] [id number] [address] [place] [phone] Jan, [facility] [address] [facility] [id number] [address] [place] [phone] Jan, [facility] [address] [facility] [id number] [address] [place] [phone] Jan, [facility] [address] [facility] [id number] [address] [place] [phone] Jan, [facility] [address] [facility] [id number] [address] [place] [phone] Jan, Status post CVA V12.54 ; Rhe umatoid arthritis 714.0 ; Hypertension 401.9 ; GERD (gastroesophageal reflux disease) 530.81 ; Nicotine addiction 305.1 and Leukocytosis 288.60 [facility] [address] [facility] [id number] [address] [place] [phone] Jan, [facility] [address] [facility] [id number] [address] [place] [phone] Jan, [facility] [address] [facility] [id number] [address] [place] [id number] Jan, [facility] [address] [facility] [id number] [address] [place] [phone] Jan, [facility] [address] [id number] [address] [place] [phone] Jan, [facility] [address] [id number] [address] [place] [id number] Dec, [facility] [address] [id number] [address] [place] [phone] Dec, [facility] [address] [facility] [id number] [address] [place] [id number] Dec, [facility] [address] [id number] [address] [place] [phone] Dec, [facility] [address] [facility] [id number] [address] [place] [phone] November, [facility] [address] [facility] [id number] [address] [place] [phone] November, [facility] [address] [facility] [id number] [address] [place] [id number] November, Shortness of breath 786.05 [facility] [address] [facility] [id number] [address] [place] [phone] November, Rheumatoid arthritis 714.0 [facility] [address] [facility] [id number] [address] [place] [phone] November, 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 [facility] [address] [facility] [id number] [address] [place] [phone] November, Neuropathy 355.9 ; Insomnia 780.52 ; Dysthymia 300.4 ; Shortness of breath 786.05 ; Rheumatoid arthritis 714.0 and Nausea 787.02 [facility] [address] [facility] [id number] [address] [place] [phone] November, [facility] [address] [facility] [id number] [address] [place] [phone] November, [facility] [address] [id number] [address] [place] [address], [place] [id number] Oct, [facility] [address] [id number] [address] [place] [address], [place] [id number] Oct, [facility] [address] [id number] [address] [place] [address], [place] [id number] Oct, [facility] [address] [id number] [address] [place] [address], [place] [id number] Oct, [facility] [address] [id number] [address] [place] [address], [place] [id number] Sep, [facility] [address] [id number] [address] [place] [address], [place] [phone] Sep, [facility] [address] [id number] [address] [place] [address], [place] [id number] Sep, [facility] [address] [id number] [address] [place] [address], [place] [address] Sep, [facility] [address] [id number] [address] [place] [address], [place] [address] Sep, [facility] [address] [id number] [address] [place] [address], [place] [address] Sep, [facility] [address] [id number] [address] [place] [address], [place] [address] Sep, [facility] [address] [id number] [address] [place] [address], [place] [address] Sep, [facility] [address] [id number] [address] [place] [address], [place] [address] Aug, [facility] [address] [id number] [address] [place] [address], [place] [address] Aug, [facility] [address] [id number] [address] [place] [address], [place] [address] Aug, [facility] [address] [id number] [address] [place] [address], [place] [address] Aug, [facility] [address] [id number] [address] [place] [address], [place] [address] Aug, [facility] [address] [id number] [address] [place] [address], [place] [address] Aug, [facility] [address] [id number] [address] [place] [address], [place] [address] Jul, [facility] [address] [id number] [address] [place] [address], [place] [address] Jul, [facility] [address] [id number] [address] [place] [address], [place] [address] Jul, [facility] [address] [id number] [address] [place] [address], [place] [address] Jul, [facility] [address] [id number] [address] [place] [address], [place] [address] Jul, [facility] [address] [id number] [address] [place] [address], [place] [address] Jul, [facility] [address] [id number] [address] [place] [address], [place] [address] Jul, [facility] [address] [id number] [address] [place] [address], [place] [address] Jul, [facility] [address] [id number] [address] [place] [address], [place] [address] Jul, [facility] [address] [id number] [address] [place] [address], [place] [address] Jul, [facility] [address] [id number] [address] [place] [address], [place] [address] Jun, [facility] [address] [id number] [address] [place] [address], [place] [address] Jun, [facility] [address] [id number] [address] [place] [address], [place] [address] Jun, [facility] [address] [id number] [facility] [place] [address] Jun, [facility] [address] [id number] [address] [place] [address], [place] [address] Jun, [facility] [address] [id number] [address] [place] [address], [place] [address] Jun, [facility] [address] [id number] [address] [place] [address], [place] [address] Jun, [facility] [address] [id number] [address] [place] [address], [place] [address] Jun, [facility] [address] [id number] [address] [place] [address], [place] [address] Jun, [facility] [address] [id number] [address] [place] [address], [place] [address] Jun, [facility] [address] [id number] [address] [place] [address], [place] [address] Jun, [facility] [address] [id number] [address] [place] [address], [place] [address] Jun, [facility] [address] [id number] [address] [place] [address], [place] [address] Jun, [facility] [address] [id number] [address] [place] [address], [place] [address] Jun, [facility] [address] [id number] [address] [place] [address], [place] [address] Jun, [facility] [address] [id number] [address] [place] [address], [place] [address] Jun, [facility] [address] [id number] [address] [place] [address], [place] [address] May, [facility] [address] [id number] [address] [place] [address], [place] [address] May, [facility] [address] [id number] [address] [place] [address], [place] [address] May, [facility] [address] [id number] [address] [place] [address], [place] [address] May, [facility] [address] [id number] [address] [place] [address], [place] [address] May, [facility] [address] [id number] [address] [place] [address], [place] [address] May, [facility] [address] [id number] [address] [place] [address], [place] [address] May, [facility] [address] [id number] [address] [place] [address], [place] [address] May, [facility] [address] [id number] [address] [place] [address], [place] [address] May, [facility] [address] [id number] [address] [place] [address], [place] [address] Apr, [facility] [address] [id number] [address] [place] [address], [place] [address] Apr, [facility] [address] [id number] [address] [place] [address], [place] [address] Apr, [facility] [address] [id number] [address] [place] [address], [place] [address] Apr, [facility] [address] [id number] [address] [place] [address], [place] [address] Apr, [facility] [address] [id number] [address] [place] [address], [place] [address] Apr, [facility] [address] [id number] [address] [place] [address], [place] [address] Apr, [facility] [address] [id number] [address] [place] [address], [place] [address] Apr, [facility] [address] [id number] [address] [place] [address] Apr, [facility] [address] [id number] [address] [place] [address], [place] [address] Apr, [facility] [address] [id number] [address] [place] [address], [place] [address] Apr, [facility] [address] [id number] [address] [place] [address], [place] [address] Apr, [facility] [address] [id number] [address] [place] [address], [place] [address] Mar, [facility] [address] [id number] [address] [place] [address], [place] [address] Mar, [facility] [address] [id number] [address] [place] [address], [place] [address] Mar, [facility] [address] [id number] [address] [place] [address], [place] [address] Mar, [facility] [address] [id number] [address] [place] [address], [place] [address] Mar, [facility] [address] [id number] [address] [place] [address], [place] [address] Mar, [facility] [address] [id number] [address] [place] [address], [place] [address] Mar, [facility] [address] [id number] [address] [place] [address], [place] [address] Mar, [facility] [address] [id number] [address] [place] [address], [place] [address] Mar, [facility] [address] [id number] [address] [place] [address], [place] [address] Mar, [facility] [address] [id number] [address] [place] [address], [place] [address] Feb, [facility] [address] [id number] [address] [place] [address], [place] [address] Feb, [facility] [address] [id number] [address] [place] [address], [place] [address] Feb, [facility] [address] [id number] [address] [place] [address], [place] [address] Feb, [facility] [address] [id number] [address] [place] [address], [place] [address] Feb, [facility] [address] [id number] [address] [place] [address], [place] [address] Feb, [facility] [address] [id number] [address] [place] [address], [place] [address] Feb, [facility] [address] [id number] [address] [place] [address], [place] [address] Feb, [facility] [address] [id number] [address] [place] [address], [place] [address] Feb, [facility] [address] [id number] [address] [place] [address], [place] [address] Feb, [facility] [address] [id number] [address] [place] [address], [place] [address] Feb, [facility] [address] [id number] [address] [place] [address], [place] [address] Feb, [facility] [address] [id number] [address] [place] [address], [place] [address] Feb, [facility] [address] [id number] [address] [place] [address], [place] [address] Feb, [facility] [address] [id number] [address] [place] [address], [place] [address] Feb, [facility] [address] [id number] [address] [place] [address], [place] [address] Feb, [facility] [address] [id number] [address] [place] [address], [place] [address] Jan, [facility] [address] [id number] [address] [place] [address], [place] [address] Jan, [facility] [address] [id number] [facility] [place] [address] 16 Jan, 2014 [facility] [address] [id number] [address] [place] [address], [place] [address] 16 Jan, 2014 [facility] [address] [id number] [address] [place] [address], [place] [address] 15 Jan, 2014 [facility] [address] [id number] [address] [place] [address], [place] [address] Jan, [facility] [address] [id number] [address] [place] [address], [place] [address] 24 Dec, 2013 [facility] [address] [id number] [address] [place] [address], [place] [address] Dec, [facility] [address] [id number] [address] [place] [address], [place] [address] Dec, [facility] [address] [id number] [address] [place] [address], [place] [address] Dec, [facility] [address] [id number] [address] [place] [address], [place] [address] Dec, [facility] [address] [id number] [address] [place] [address], [place] [address] Dec, [facility] [address] [id number] [address] [place] [address], [place] [address] Dec, [facility] [address] [id number] [address] [place] [address], [place] [address] Dec, [facility] [address] [id number] [address] [place] [address], [place] [address] November, [facility] [address] [id number] [address] [place] [address], [place] [address] November, [facility] [address] [id number] [address] [place] [address], [place] [address] November, [facility] [address] [id number] [address] [place] [address], [place] [address] November, [facility] [address] [id number] [facility] [place] [address] November, [facility] [address] [id number] [address] [place] [address], [place] [address] November, [facility] [address] [id number] [address] [place] [address], [place] [address] Oct, [facility] [address] [id number] [address] [place] [address], [place] [address] Oct, [facility] [address] [id number] [address] [place] [address], [place] [address] Oct, [facility] [address] [id number] [address] [place] [address], [place] [address] Oct, [facility] [address] [id number] [address] [place] [address], [place] [address] Sep, [facility] [address] [id number] [address] [place] [address], [place] [address] Sep, [facility] [address] [id number] [address] [place] [address], [place] [address] Sep, [facility] [address] [id number] [address] [place] [address], [place] [address] Sep, [facility] [address] [id number] [address] [place] [address], [place] [address] Sep, [facility] [address] [id number] [address] [place] [address], [place] [address] Sep, [facility] [address] [id number] [address] [place] [address], [place] [address] Aug, [facility] [address] [id number] [address] [place] [address], [place] [address] Aug, [facility] [address] [id number] [address] [place] [address], [place] [address] Aug, [facility] [address] [id number] [address] [place] [address], [place] [address] 13 Aug, 2013 [facility] [address] [id number] [address] [place] [address], [place] [address] Aug, [facility] [address] [id number] [address] [place] [address], [place] [address] Aug, [facility] [address] [id number] [address] [place] [address], [place] [address] Jul, [facility] [address] [id number] [address] [place] [address], [place] [address] Jul, [facility] [address] [id number] [address] [place] [address], [place] [address] Jul, [facility] [address] [id number] [address] [place] [address], [place] [address] Jul, [facility] [address] [id number] [address] [place] [address], [place] [address] Jul, [facility] [address] [id number] [address] [place] [address], [place] [address] Jul, [facility] [address] [id number] [address] [place] [address], [place] [address] Jul, [facility] [address] [id number] [address] [place] [address], [place] [address] Jul, [facility] [address] [id number] [address] [place] [address], [place] [address] Jul, [facility] [address] [id number] [address] [place] [address], [place] [address] Jul, [facility] [address] [id number] [address] [place] [address], [place] [address] Jul, [facility] [address] [id number] [address] [place] [address], [place] [address] Jul, [facility] [address] [id number] [address] [place] [address], [place] [address] Jul, [facility] [address] [id number] [address] [place] [address], [place] [address] Jul, [facility] [address] [id number] [address] [place] [address], [place] [address] Jul, [facility] [address] [id number] [address] [place] [address], [place] [address] Jun, [facility] [address] [id number] [address] [place] [address], [place] [address] Jun, [facility] [address] [id number] [address] [place] [address], [place] [address] Jun, [facility] [address] [id number] [address] [place] [address], [place] [address] Jun, [facility] [address] [id number] [address] [place] [address], [place] [address] May, [facility] [address] [id number] [address] [place] [address], [place] [address] May, [facility] [address] [id number] [place] [id number] May, [facility] [address] [id number] [address] [place] [address], [place] [address] May, [facility] [address] [id number] [address] [place] [address], [place] [address] May, [facility] [address] [id number] [address] [place] [address], [place] [address] May, [facility] [address] [id number] [address] [place] [address], [place] [address] May, [facility] [address] [id number] [address] [place] [address], [place] [address] May, [facility] [address] [id number] [address] [place] [address], [place] [address] May, [facility] [address] [id number] [place] [id number] May, [facility] [address] [facility] [id number] [address] [address] May, [facility] [address] [facility] [id number] [place] [id number] May, [facility] [address] [facility] [id number] [address] [address] May, [facility] [address] [facility] [id number] [place] [id number] May, [facility] [address] [facility] [id number] [address] [address] May, IMMUNIZATIONS No Known Immunizations SOCIAL HISTORY [...] 08/2019 PE Surgical History amputation: transmetatarsal (Reveal) / 014 Surgical History hip replacement 2003 Surgical [...] History Exacerbation COPD 10/23/15 Hospitalization History Diarrhea, leukocytosis--[facility] 01/08/16 Hospitalization History pseudomemranous colitis, sepsis--[facility] 04/21/2016 Hospitalization History C Diff--[facility] 05/10/2016 Hospitalization History sepsis, pneumonia, diarrhea--[facility] Hospitalization History recurrent cdiff, pneumonia-[facility] Hospitalization History sepsis,pneumonia- [facility] 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
--- OUTSIDE RECORDS SUMMARY | 2019-11-11 03:00 | XMS REPORT ---
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 147116499 Problem COPD (chronic obstructive pulmonary disease) J44.9 Active 01425753 Problem Hypertension I10 Active 4835274 3 Problem Primary insomnia F51.01 Active 397 2004 Problem Hx of Clostridium difficile infection Z86.19 Active 809828722 Problem Chronic obstructive pulmon disease w acute lower resp infc t J44.0 Active 200591040 Problem History of arthroplasty of right knee Z96.651 Active 029316424 Problem Leg pain, left M79.605 Active 67248 7008 Problem Status post partial amputation of left foot Z89.43 2 Active 550290334 Problem Edema R60.9 Active 671844298 Problem Tobacco abuse, 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 Ac tive 625192233 Problem Anxiety F41.9 Active 66853687 Problem Chronic pain syndrome G89.4 Active 746011992 Problem Anemia, unspecified type D64.9 Activ e 744497744 Problem Depression, unspecified depression type F32.9 Active 19709746 Problem Other chronic pain G89.29 Active 8 9604153 Problem Iron deficiency anemia, unspecified iron deficiency an emia type D50.9 Active 24849454 Problem Insomnia, unspecified G47.00 Active 571475500 Problem Seasonal allergic rhinitis due to pollen J30.1 Active 22048795 Problem History of oral cancer Z85.819 Active 730562721 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 36 0785677 Problem Atrial fibrillation I48.91 Active 02615731 Problem Chronic obstructive pulmonary disease with (acute) exa cerbation J44.1 Active 130772886 Problem Rheumatoid arthritis M06.9 Active 94034424 Problem Dysthymia F34.1 Active 06163222 Problem Neuropathy G62.9 Active 066929650 Problem Rheumatoid arthritis with po sitive rheumatoid factor, involving unspecified site M05.9 Active 67312794 Problem Hemiplegia and hemiparesis f ollowing cerebral infarction affecting right dominant side I69.351 Active 758956160 Problem Cancer of neck C76.0 Active 63567 9000 ALLERGIES No Information ENCOUNTERS Encounter Location Date Diagnosis [place] [address] [facility] [id number] [address] [place] [phone] November, [facility] [address] [facility] [id number] [address] [place] [address] Oct, [place] [address] [facility] [id number] [address] [place] [address] Oct, Anxiety F41.9 [facility] [address] [facility] [id number] [address] [place] [address] Oct, Thrush B37.0 [facility] [address] [id number] [address] [place] [phone] Oct, [facility] [address] [id number] [address] [place] [address] Sep, Chronic pain syndrome G89.4 [facility] [address] [id number] [address] [place] [phone] Sep, Chronic pain syndrome G89.4 and Rheumatoid arthritis with positive rheumatoid factor, involving unspecified site M05.9 [facility] [address] [id number] [address] [place] [address] Sep, [facility] [address] [facility] [id number] [address] [place] [phone] Aug, Chronic pain syndrome G89.[address] [id number] [address] 19 Aug, 2019 Chronic obstructive pulmonar y disease with (acute) exacerbation J44.1 [facility] [address] [id number] [address] [place] [phone] 12 Aug, 2019 Single subsegmental pulmonar y embolism without acute cor pulmonale I26.93 ; Rheumatoid arthritis with positive rheumatoid factor, involving unspecified site M05.9 ; Chronic pain syndrome G89.4 ; Leg pain, left M79.605 and 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 [facility] [address] [facility] [id number] [address] [place] [address] Aug, [facility] [address] [facility] [id number] [address] [place] [id number] 11 Aug, 2019 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 [facility] [address] [facility] [id number] [address] [place] [phone] 07 Aug, 2019 Chronic pain syndrome G89.4 [facility] [address] [id number] [address] [place] [id number] Jul, Primary insomnia F51.01 [facility] [address] [facility] [id number] [address] [place] [address] Jul, Chronic pain syndrome G89.4 [facility] [address] [id number] [address] [place] [address] Jul, [facility] [address] [facility] [id number] [address] [place] [phone] Jul, [facility] [address] [facility] [id number] [address] [place] [id number] Jul, Rheumatoid arthritis with po sitive rheumatoid factor, involving unspecified site M05.9 and Chronic pain syndrome G89.4 [facility] [address] [facility] [id number] [address] [place] [id number] Jul, [facility] [address] [id number] [address] [place] [phone] Jun, Rheumatoid arthritis with po sitive rheumatoid factor, involving unspecified site M05.9 [facility] [address] [id number] [address] [place] [address] Jun, Chronic pain syndrome G89.4 ; Rheumatoid arthritis with positive rheumatoid factor, involving unspecified site M05.9 and Anxiety F41.9 [facility] [address] [id number] [address] [place] [phone] Jun, [facility] [address] [id number] [address] [place] [address] Jun, Hemorrhoids, unspecified hem orrhoid type K64.9 [facility] [address] [id number] [address] [place] [address] Jun, Hemorrhoids, unspecified hem orrhoid type K64.9 ; Cancer of neck C76.0 and Drug-induced constipation K59.03 [facility] [address] [id number] [address] [place] [phone] Jun, [facility] [address] [id number] [address] [place] [address] Jun, [facility] [address] [id number] [address] [place] [address] Jun, Rheumatoid arthritis with po sitive rheumatoid factor, involving unspecified site M05.9 [facility] [address] [id number] [address] [place] [phone] May, [facility] [address] [id number] [address] [place] [address] May, Rheumatoid arthritis with po sitive rheumatoid factor, involving unspecified site M05.9 [facility] [address] [id number] [address] [place] [address] Apr, Primary insomnia F51.01 [facility] [address] [id number] [address] [place] [address] Apr, Rheumatoid arthritis with po sitive rheumatoid factor, involving unspecified site M05.9 [facility] [address] [id number] [address] [place] [phone] Mar, [facility] [address] [id number] [address] [place] [phone] Mar, [facility] [address] [id number] [address] [place] [address] Mar, Rheumatoid arthritis with po sitive rheumatoid factor, involving unspecified site M05.9 ; Atrial fibrillation I48.91 ; Chronic pain syndrome G89.4 ; Iron deficiency anemia, unspecified iron deficiency anemia type D50.9 and Hemiplegia and hemiparesis following cerebral infarction affecting right dominant side I69.351 [facility] [address] [id number] [address] [place] [address] Mar, Chronic pain syndrome G89.4 and Primary insomnia F51.01 [place] [address] [id number] [address] [place] [address] Mar, Rheumatoid arthritis with po sitive rheumatoid factor, involving unspecified site M05.9 [facility] [address] [id number] [address] [place] [address] Feb, Rheumatoid arthritis with po sitive rheumatoid factor, involving unspecified site M05.9 ; Chronic pain syndrome G89.4 ; Atrial fibrillation I48.91 ; Iron deficiency anemia, unspecified iron deficiency anemia type D50.9 ; Hemiplegia and hemiparesis following cerebral infarction affecting right dominant side I69.351 and Primary insomnia F51.01 [facility] [address] [id number] [address] [place] [address] Feb, Chronic pain syndrome G89.4 [facility] [address] [id number] [address] [place] [phone] Jan, Chronic pain syndrome G89.4 [facility] [address] [facility] [id number] [address] [place] [phone] Jan, [facility] [address] [facility] [id number] [address] [place] [phone] Jan, [facility] [address] [id number] [address] [place] [address] Dec, [facility] [address] [facility] [id number] [address] [place] [phone] Dec, Chronic pain syndrome G89.4 [facility] [address] [facility] [id number] [address] [place] [phone] Dec, [facility] [address] [facility] [id number] [address] [place] [address] November, Chronic pain syndrome G89.4 [facility] [address] [facility] [id number] [address] [place] [address] Oct, Chronic pain syndrome G89.4 [facility] [address] [place] [id number] [address] [place] [phone] Oct, [facility] [address] [place] [id number] [address] [place] [address] Sep, Chronic pain syndrome G89.4 [facility] [address] [place] [id number] [address] [place] [address] Sep, Leg pain, left M79.605 ; Rig ht leg pain M79.604 and Reactive cervical nodes R59.0 [facility] [address] [facility] [id number] [address] [place] [address] Sep, [facility] [address] [facility] [id number] [address] [place] [address] Sep, Neuropathy G62.9 [facility] [address] [place] [id number] [place] [id number] Sep, [facility] [address] [place] [id number] [address] [place] [id number] Sep, Lymphadenopathy of left cerv ical region R59.0 [facility] [address] [place] [id number] [address] [place] [address] Sep, Lymphadenopathy of left cerv ical region R59.0 and Neuropathy G62.9 [facility] [address] [facility] [id number] [address] [place] [address] Aug, Chronic pain syndrome G89.4 [facility] [address] [facility] [id number] [address] [place] [id number] Aug, [facility] [address] [address] Aug, Peripheral vascular disease, unspecified I73.9 ; Other chronic pain G89.29 ; Chronic obstructive pulmon disease w acute lower resp infct J44.0 and Primary insomnia F51.01 [facility] [address] [facility] [id number] [address] [place] [address] Aug, Chronic pain syndrome G89.4 [place] [address] [id number] Jul, Chronic pain syndrome G89.4 [facility] [id number] [place] [address] Jun, Chronic pain syndrome G89.4 [place] [address] [place] [id number] [address] [place] [address] May, Chronic pain syndrome G89.4 [facility] [address] [place] [id number] [address] [place] [address] Apr, Cough R05 and Viral illness B34.9 [facility] [address] [facility] [id number] [address] [place] [id number] Apr, Encounter for immunization Z 23 [facility] [address] [place] [id number] [address] [place] [id number] 16 Apr, 2018 Chronic pain syndrome G89.4 [facility] [address] [facility] [id number] [address] [place] [phone] 07 Apr, 2018 Left acute otitis media H66. 92 [facility] [address] [place] [id number] [address] [place] [id number] 26 Mar, 2018 Rheumatoid arthritis M06.9 ; Other chronic pain G89.29 ; History of oral cancer Z85.819 and History of tachycardia Z87.898 [facility] [address] [id number] [address] [place] [phone] 14 Mar, 2018 Chronic pain syndrome G89.4 [facility] [address] [id number] [address] [place] [phone] Feb, Chronic pain syndrome G89.4 [facility] [address] [id number] [address] [place] [address] Feb, Chronic pain syndrome G89.4 [facility] [address] [id number] [address] [place] [address] Jan, Chronic pain syndrome G89.4 [facility] [address] [id number] [address] [place] [phone] Jan, [facility] [address] [id number] [address] [place] [phone] Dec, Chronic pain syndrome G89.4 [facility] [address] [id number] [address] [place] [phone] November, Chronic pain syndrome G89.4 [facility] [address] [id number] [address] [place] [address] November, [facility] [address] [id number] [address] [place] [phone] Oct, Chronic pain syndrome G89.4 [facility] [address] [id number] [address] [place] [phone] 16 Oct, 2017 [facility] [address] [id number] [address] [place] [phone] Oct, Chronic pain syndrome G89.4 [facility] [address] [id number] [address] [place] [phone] Oct, [facility] [address] [facility] [id number] [address] [place] [address] Oct, [facility] [address] [facility] [id number] [address] [place] [address] Sep, Left upper quadrant pain R10 .12 ; Chronic pain syndrome G89.4 ; Left lower quadrant pain R10.32 ; Other chronic pain G89.29 ; Sacrococcygeal disorders, not elsewhere classified M53.3 and Seasonal allergic rhinitis due to pollen J30.1 [facility] [address] [facility] [id number] [address] [place] [address] Sep, Chronic pain syndrome G89.4 [facility] [address] [facility] [id number] [address] [place] [address] Sep, [facility] [address] [facility] [id number] [address] [place] [id number] Aug, Chronic pain syndrome G89.4 [facility] [address] [facility] [id number] [address] [place] [id number] Aug, [facility] [address] [facility] [id number] [address] [place] [address] Aug, Insomnia, unspecified G47.00 [facility] [address] [facility] [id number] [address] [place] [address] Jul, [facility] [address] [facility] [id number] [address] [place] [address] Jul, [facility] [address] [facility] [id number] [address] [place] [address] Jul, Chronic pain syndrome G89.4 [facility] [address] [facility] [id number] [address] [place] [address] Jun, Chronic pain syndrome G89.4 [facility] [address] [facility] [id number] [address] [place] [address] Jun, Chronic pain syndrome G89.4 [facility] [address] [facility] [id number] [address] [place] [address] May, [facility] [address] [facility] [id number] [address] [place] [address] May, Shortness of breath R06.02 ; Peripheral vascular disease, unspecified I73.9 ; Pain in right knee M25.561 ; Other chronic pain G89.29 ; Chest wall pain R07.89 ; Chronic pain syndrome G89.4 ; Primary insomnia F51.01 and Ear pain, left H92.02 [place] [address] [facility] [id number] [address] [place] [address] May, Anxiety F41.9 [place] [address] [place] [id number] [address] [place] [address] Apr, Pneumonia due to infectious organism, unspecified laterality, unspecified part of lung J18.9 ; Hypoxia R09.02 ; Bradycardia R00.1 ; History of Clostridium difficile Z87.19 and Primary insomnia F51.01 [place] [address] [facility] [id number] [address] [place] [address] Apr, Anxiety F41.9 [place] [address] [facility] [id number] [address] [place] [address] Apr, [place] [address] [place] [id number] [address] [place] [address] Mar, Anxiety F41.9 [place] [address] [facility] [id number] [address] [place] [address] Feb, [place] [address] [facility] [id number] [address] [place] [address] Feb, [place] [address] [facility] [id number] [address] [place] [address] Feb, Abnormal finding on urinalys is R82.90 [place] [address] [facility] [id number] [address] [place] [address] Feb, [place] [address] [facility] [id number] [address] [place] [address] Feb, Shortness of breath R06.02 ; Tachycardia R00.0 ; Cough R05 ; Ill feeling R68.89 and Abnormal finding on urinalysis R82.90 [facility] [address] [facility] [id number] [address] [place] [address] Feb, Anxiety F41.9 [facility] [address] [facility] [id number] [address] [place] [address] Feb, Sore throat J02.9 and Acute diffuse otitis externa of left ear H60.312 [facility] [address] [facility] [id number] [address] [place] [address] Jan, [facility] [address] [phone] Jan, [place] [address] [id number] Jan, [facility] [address] [place] [id number] [address] [place] [address] Jan, Depression, unspecified depr ession type F32.9 ; Chronic bronchitis, unspecified chronic bronchitis type J42 ; Chronic pain syndrome G89.4 and Anxiety F41.9 [facility] [address] [place] [id number] [address] [place] [address] Jan, [facility] [address] [place] [id number] [address] [place] [address] Jan, [facility] [address] [place] [id number] [address] [place] [phone] Jan, [facility] [address] [place] [id number] [place] [id number] Jan, Chronic pain syndrome G89.4 [employer] [facility] [facility] [address] [place] [id number] Dec History of right knee surgery Z98.890 [facility] [address] [place] [id number] [address] [place] [address] Dec, [facility] [address] [facility] [id number] [address] [place] [address] Dec, Chronic pain syndrome G89.4 [facility] [address] [facility] [id number] [address] [place] [address] November, Anxiety F41.9 [facility] [address] [facility] [id number] [address] [place] [address] November, Acute cystitis without hemat uria N30.00 [facility] [address] [facility] [id number] [address] [place] [address] November, Fever, unspecified fever cau se R50.9 and Acute cystitis without hematuria N30.00 [place] [address] [facility] [id number] [address] [place] [address] November, Chronic pain syndrome G89.4 [place] [address] [facility] [id number] [address] [place] [id number] Oct, Anxiety F41.9 [facility] [address] [facility] [id number] [address] [place] [id number] Oct, Chronic pain syndrome G89.4 [place] [address] [facility] [id number] [address] [place] [id number] Oct, Chronic pain syndrome G89.4 [facility] [address] [facility] [id number] [address] [place] [id number] Oct, [facility] [address] [facility] [id number] [address] [place] [id number] Oct, Chronic pain syndrome G89.4 ; Pain in right knee M25.561 ; History of Clostridium difficile Z87.19 ; Iron deficiency anemia, unspecified iron deficiency anemia type D50.9 ; Peripheral vascular disease, unspecified I73.9 and Atrial fibrillation I48.91 [facility] [address] [facility] [id number] [address] [place] [address] Oct, [facility] [address] [facility] [id number] [address] [place] [phone] Oct, Chronic pain syndrome G89.4 [facility] [address] [facility] [id number] [address] [place] [address] Sep, [facility] [address] [facility] [id number] [address] [place] [address] Sep, Depression, unspecified depr ession type F32.9 ; Chronic bronchitis, unspecified chronic bronchitis type J42 ; Chronic pain syndrome G89.4 and Anxiety F41.9 [employer] [facility] [employer] [facility] [address] [place] [id number] Sep History of Clostridium difficile infection Z86.19 and History of stroke Z86.73 [facility] [address] [id number] [place] [id number] Sep, Anxiety F41.9 [facility] [address] [facility] [id number] [address] [place] [phone] Sep, Chronic pain syndrome G89.4 [facility] [address] [facility] [id number] [address] [place] [phone] Sep, [facility] [id number] [place] [id number] Sep, [facility] [address] [facility] [id number] [address] [place] [phone] Aug, Anxiety F41.9 [facility] [address] [facility] [id number] [address] [place] [phone] Aug, Anxiety F41.9 [facility] [address] [facility] [id number] [address] [place] [phone] 16 Aug, 2016 [facility] [address] [facility] [id number] [address] [place] [phone] 14 Aug, 2016 Acute knee pain, unspecified laterality M25.569 [facility] [address] [facility] [id number] [address] [place] [phone] 13 Aug, 2016 [facility] [address] [facility] [id number] [address] [place] [phone] Aug, Chronic pain syndrome G89.4 [facility] [address] [facility] [id number] [address] [place] [id number] Aug, [facility] [address] [facility] [id number] [address] [place] [phone] Aug, [facility] [address] [facility] [id number] [address] [place] [phone] Jul, [facility] [address] [facility] [id number] [address] [place] [address] Jul, Anxiety F41.9 [facility] [address] [facility] [id number] [address] [place] [id number] Jul, Clostridium difficile diarrh ea A04.7 [facility] [address] [place] [id number] Jul Clostridium difficile diarrhea A04.7 ; Chronic pain syndrome G89.4 ; Chronic obstructive pulmon disease w acute lower resp infct J44.0 and Pain in right knee M25.561 [facility] [id number] [place] [id number] Jul, [facility] [address] [facility] [id number] [address] [place] [id number] Jul, Anxiety F41.9 and Chronic pa in syndrome G89.4 [facility] [address] [facility] [id number] [address] [place] [address] Jun, Anxiety F41.9 [facility] [address] [facility] [id number] [address] [place] [address] Jun, Rheumatoid arthritis 714.0 [facility] [address] [facility] [id number] [address] [place] [phone] Jun, Chronic pain syndrome G89.4 [facility] [address] [facility] [id number] [address] [place] [phone] Jun, [facility] [address] [id number] [address] [place] [id number] 13 Jun, 2016 [facility] [address] [id number] [address] [place] [phone] 12 Jun, 2016 History of pneumonia Z87.01 and History of Clostridium difficile Z87.19 [facility] [address] [id number] [address] [place] [id number] 06 Jun, 2016 [facility] [address] [id number] [address] [place] [phone] May, [facility] [address] [id number] [address] [place] [phone] May, Anxiety F41.9 [facility] [address] [id number] [address] [place] [phone] 23 May, 2016 Chronic pain syndrome G89.4 [place] [address] [id number] [address] [place] [id number] May, Chronic bronchitis, unspecif ied chronic bronchitis type J42 [facility] [address] [id number] [address] [place] [phone] May, [facility] [address] [id number] [address] [place] [phone] May, C. difficile diarrhea A04.7 ; Peripheral edema R60.9 ; COPD (chronic obstructive pulmonary disease) J44.9 ; Rheumatoid arthritis, involving unspecified site, unspecified rheumatoid factor presence M06.9 ; Pain in right knee M25.561 ; Pain in left knee M25.562 and Other chronic pain G89.29 [facility] [address] [id number] [address] [place] [phone] May, [facility] [address] [id number] [address] [place] [phone] May, [facility] [address] [id number] [address] [place] [phone] May, Anxiety F41.9 [facility] [address] [id number] [address] [place] [phone] Apr, [facility] [address] [id number] [address] [place] [address] Apr, Chronic pain syndrome G89.4 [facility] [address] [id number] [address] [place] [address] Apr, Leg pain, left M79.605 [facility] [address] [id number] [address] [place] [phone] 14 Apr, 2016 [facility] [address] [id number] [address] [place] [phone] Apr, [facility] [address] [id number] [address] [place] [phone] Apr, [facility] [address] [facility] [id number] [address] [place] [phone] 28 Mar, 2016 Chronic pain syndrome G89.4 [facility] [address] [facility] [id number] [address] [place] [id number] 22 Mar, 2016 Acute frontal sinusitis, rec urrence not specified J01.10 [facility] [address] [facility] [id number] [address] [place] [phone] 20 Mar, 2016 Iron deficiency anemia, unsp ecified iron deficiency anemia type D50.9 ; Rheumatoid arthritis with positive rheumatoid factor, involving unspecified site M05.9 and Depression, unspecified depression type F32.9 [facility] [address] [facility] [id number] [address] [place] [phone] 13 Mar, 2016 Iron deficiency anemia, unsp ecified iron deficiency anemia type D50.9 ; Depression, unspecified depression type F32.9 and Rheumatoid arthritis with positive rheumatoid factor, involving unspecified site M05.9 [facility] [address] [facility] [id number] [address] [place] [phone] 06 Mar, 2016 [facility] [address] [facility] [id number] [address] [place] [phone] Mar, [facility] [address] [facility] [id number] [address] [place] [phone] Feb, Chronic pain syndrome G89.4 [place] [address] [place] [id number] [address] [place] [phone] 30 Feb, 2016 Status post partial amputati on of left foot Z89.432 ; Status post CVA Z86.73 ; Hemiplegia G81.90 and Anemia, unspecified type D64.9 [place] [address] [facility] [id number] [address] [place] [phone] Feb, [place] [address] [facility] [id number] [address] [place] [phone] Feb, Anemia, unspecified type D64 .9 [place] [address] [facility] [id number] [address] [place] [address] Feb, [place] [address] [place] [id number] [address] [place] [phone] Feb, Iron deficiency anemia, unsp ecified iron deficiency anemia type D50.9 [place] [address] [facility] [id number] [address] [place] [phone] Feb, [place] [address] [facility] [id number] [address] [place] [id number] Feb, Chronic bronchitis, unspecif ied chronic bronchitis type J42 [place] [address] [facility] [id number] [address] [place] [phone] Feb, Iron deficiency anemia, unsp ecified iron deficiency anemia type D50.9 [place] [address] [facility] [id number] [address] [place] [address] Feb, Chronic pain syndrome G89.4 [place] [address] [facility] [id number] [address] [place] [address] Feb, Anemia, unspecified type D64 .9 and Hypoxia R09.02 [place] [address] [facility] [id number] [address] [place] [address] Feb, Anemia, unspecified type D64 .9 [facility] [address] [id number] [address] [place] [phone] Jan, [facility] [address] [facility] [id number] [address] [place] [phone] Jan, Anemia, unspecified type D64 .9 [facility] [address] [id number] [address] [place] [phone] Jan, [facility] [address] [id number] [address] [place] [phone] Jan, Anemia, unspecified type D64 .9 [facility] [address] [facility] [id number] [address] [place] [address] Jan, Anemia, unspecified type D64 .9 [facility] [address] [facility] [id number] [address] [place] [address] Jan, [facility] [address] [facility] [id number] [address] [place] [phone] Jan, Anemia, unspecified type D64 .9 [facility] [address] [facility] [id number] [address] [place] [phone] Jan, [facility] [address] [facility] [id number] [address] [place] [phone] Jan, [facility] [address] [facility] [id number] [address] [place] [phone] Jan, Chronic pain syndrome G89.4 [facility] [address] [facility] [id number] [address] [place] [address] Jan, Anemia, unspecified type D64 .9 [facility] [address] [facility] [id number] [address] [place] [phone] Jan, Dysthymia F34.1 ; Cervicalgi a M54.2 ; Fatigue, unspecified type R53.83 and Depression, unspecified depression type F32.9 [facility] [address] [facility] [id number] [address] [place] [address] Dec, [facility] [address] [facility] [id number] [address] [place] [phone] 14 Dec, 2015 Anxiety F41.9 [facility] [address] [place] [id number] [address] [place] [phone] 08 Dec, 2015 Chronic pain syndrome G89.4 [facility] [address] [place] [id number] [address] [place] [phone] November, [facility] [address] [place] [id number] [address] [place] [address] November, Edema R60.9 and Dizziness R4 2 [place] [address] [phone] November, [place] [address] [phone] November, [place] [address] [address] November, COPD (chronic obstructive pu lmonary disease) J44.9 ; Increased tracheal secretions J39.8 and Edema R60.9 [facility] [address] [phone] Oct, [facility] [address] [place] [id number] [address] [place] [address] Oct, Shortness of breath R06.02 a nd Edema R60.9 [facility] [address] [place] [id number] [address] [place] [address] Oct, Chronic bronchitis, unspecif ied chronic bronchitis type J42 ; Peripheral vascular disease, unspecified I73.9 ; Rheumatoid arthritis M06.9 and Atrial fibrillation I48.91 [facility] [address] [place] [id number] [address] [place] [address] Oct, [facility] [address] [id number] Oct, [facility] [address] [id number] [address] [place] [id number] Oct, [facility] [address] [facility] [id number] [address] [place] [phone] Oct, [facility] [address] [facility] [id number] [address] [place] [phone] Oct, COPD exacerbation J44.1 [facility] [address] [facility] [id number] [address] [place] [phone] Sep, [facility] [address] [facility] [id number] [address] [place] [phone] Sep, [facility] [address] [facility] [id number] [address] [place] [phone] Sep, [facility] [address] [facility] [id number] [address] [place] [address] Aug, [facility] [address] [facility] [id number] [address] [place] [phone] Aug, 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 and P VD (peripheral vascular disease) I73.9 [facility] [address] [facility] [id number] [address] [place] [phone] Aug, Bronchitis J40 ; COPD (chron ic obstructive pulmonary disease) J44.9 and Dysthymia F34.1 [facility] [address] [facility] [id number] [address] [place] [phone] Aug, [facility] [address] [facility] [id number] [address] [place] [phone] Jul, [facility] [address] [facility] [id number] [address] [place] [phone] Jul, [facility] [address] [facility] [id number] [address] [place] [phone] Jul, [facility] [address] [facility] [id number] [address] [place] [phone] Jun, [facility] [address] [id number] [address] [place] [id number] Jun, [facility] [address] [facility] [id number] [address] [place] [phone] Jun, Peripheral vascular disease I73.9 [facility] [address] [facility] [id number] [address] [place] [id number] Jun, [facility] [address] [facility] [id number] [address] [place] [id number] Jun, [facility] [address] [facility] [id number] [address] [place] [address] Jun, Leg pain, left M79.605 ; Dys phagia, unspecified dysphagia R13.10 ; Insomnia, unspecified type G47.00 ; PVD (peripheral vascular disease) I73.9 and 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 [facility] [address] [id number] [address] [place] [phone] May, [facility] [address] [facility] [id number] [address] [place] [phone] May, [facility] [address] [facility] [id number] [address] [place] [address] May, [facility] [address] [facility] [id number] [address] [place] [address] May, [facility] [address] [id number] [address] [place] [phone] May, [facility] [address] [facility] [id number] [address] [place] [phone] Apr, [facility] [address] [id number] [address] [place] [phone] Apr, [facility] [address] [facility] [id number] [address] [place] [address] Mar, [facility] [address] [id number] [address] [place] [phone] Mar, [facility] [address] [id number] [address] [place] [address] Feb, [facility] [address] [id number] [address] [place] [address] Feb, Nicotine abuse 305.1 ; Arthr algia 719.40 and Status post CVA V12.54 [facility] [address] [id number] [address] [place] [address] Feb, [facility] [address] [id number] [address] [place] [phone] Jan, [facility] [address] [id number] [address] [place] [id number] Jan, [facility] [address] [facility] [id number] [address] [place] [phone] Jan, [facility] [address] [facility] [id number] [address] [place] [id number] Jan, [facility] [address] [facility] [id number] [address] [place] [phone] Jan, Status post CVA V12.54 ; Rhe umatoid arthritis 714.0 ; Hypertension 401.9 ; GERD (gastroesophageal reflux disease) 530.81 ; Nicotine addiction 305.1 and Leukocytosis 288.60 [facility] [address] [id number] [address] [place] [id number] Jan, [facility] [address] [id number] [address] [place] [phone] Jan, [facility] [address] [id number] [address] [place] [address] Jan, [facility] [address] [facility] [id number] [address] [place] [address] Jan, [facility] [address] [facility] [id number] [address] [place] [phone] Jan, [facility] [address] [facility] [id number] [address] [place] [phone] Dec, [facility] [address] [facility] [id number] [address] [place] [address] Dec, [facility] [address] [facility] [id number] [address] [place] [id number] Dec, [facility] [address] [facility] [id number] [address] [place] [address] Dec, [facility] [address] [facility] [id number] [address] [place] [address] November, [facility] [address] [facility] [id number] [address] [place] [phone] November, [facility] [address] [place] [id number] [address] [place] [address] November, Shortness of breath 786.05 [facility] [address] [place] [id number] [address] [place] [phone] November, Rheumatoid arthritis 714.0 [facility] [address] [facility] [id number] [address] [place] [address] November, 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 [facility] [address] [place] [id number] [address] [place] [address] November, Neuropathy 355.9 ; Insomnia 780.52 ; Dysthymia 300.4 ; Shortness of breath 786.05 ; Rheumatoid arthritis 714.0 and Nausea 787.02 [facility] [address] [facility] [id number] [address] [place] [id number] November, [facility] [address] [facility] [id number] [address] [place] [address] November, [facility] [address] [facility] [id number] [address] [place] [id number] Oct, [facility] [address] [facility] [id number] [address] [place] [address] Oct, [facility] [address] [id number] [address] [place] [address], [place] [id number] 14 Oct, 2014 [facility] [address] [id number] [address] [place] [address], [place] [phone] 13 Oct, 2014 [facility] [address] [id number] [address] [place] [address], [place] [address] Sep, [facility] [address] [id number] [address] [place] [address], [place] [address] Sep, [facility] [address] [id number] [address] [place] [address], [place] [id number] Sep, [facility] [address] [id number] [address] [place] [address], [place] [address] Sep, [facility] [address] [id number] [address] [place] [address], [place] [address] Sep, [facility] [address] [id number] [address] [place] [address], [place] [address] Sep, [facility] [address] [id number] [address] [place] [address], [place] [address] Sep, [facility] [address] [id number] [address] [place] [address], [place] [address] Sep, [facility] [address] [id number] [address] [place] [address], [place] [address] Aug, [facility] [address] [id number] [address] [place] [address], [place] [address] Aug, [facility] [address] [id number] [address] [place] [address], [place] [address] Aug, [facility] [address] [id number] [address] [place] [address], [place] [address] Aug, [facility] [address] [id number] [address] [place] [address], [place] [address] Aug, [facility] [address] [id number] [address] [place] [address], [place] [address] Aug, [facility] [address] [id number] [address] [place] [address], [place] [id number] Jul, [facility] [address] [id number] [address] [place] [address], [place] [address] Jul, [facility] [address] [id number] [address] [place] [address], [place] [address] Jul, [facility] [address] [id number] [address] [place] [address], [place] [address] Jul, [facility] [address] [id number] [address] [place] [address], [place] [address] Jul, [facility] [address] [id number] [address] [place] [address], [place] [id number] Jul, [facility] [address] [id number] [address] [place] [address], [place] [id number] Jul, [facility] [address] [id number] [address] [place] [address], [place] [id number] Jul, [facility] [address] [id number] [address] [place] [address], [place] [id number] Jul, [facility] [address] [id number] [address] [place] [address], [place] [id number] Jul, [facility] [address] [id number] [address] [place] [address], [place] [address] Jun, [facility] [address] [id number] [address] [place] [address], [place] [address] Jun, [facility] [address] [id number] [address] [place] [address], [place] [id number] Jun, [facility] [address] [id number] [address] [place] [address], [place] [id number] Jun, [facility] [address] [id number] [address] [place] [address], [place] [id number] Jun, [facility] [address] [id number] [address] [place] [address], [place] [address] Jun, [facility] [address] [id number] [address] [place] [address], [place] [address] Jun, [facility] [address] [id number] [address] [place] [address], [place] [address] Jun, [facility] [address] [id number] [address] [place] [address], [place] [address] Jun, [facility] [address] [id number] [address] [place] [address], [place] [address] Jun, [facility] [address] [id number] [address] [place] [address], [place] [address] Jun, [facility] [address] [id number] [address] [place] [address], [place] [address] Jun, [facility] [address] [id number] [address] [place] [address], [place] [id number] Jun, [facility] [address] [id number] [address] [place] [address], [place] [id number] Jun, [facility] [address] [id number] [address] [place] [address], [place] [id number] Jun, [facility] [address] [id number] [address] [place] [address], [place] [id number] Jun, [facility] [address] [id number] [address] [place] [address], [place] [address] May, [facility] [address] [id number] [address] [place] [address], [place] [address] May, [facility] [address] [id number] [address] [place] [address], [place] [address] May, [facility] [address] [id number] [address] [place] [address], [place] [address] May, [facility] [address] [id number] [address] [place] [address] [address] May, [facility] [address] [id number] [address] [place] [address], [place] [address] May, [facility] [address] [id number] [address] [place] [address] May, [facility] [address] [id number] [address] [place] [address], [place] [address] May, [facility] [address] [id number] [address] [place] [address] May, [facility] [address] [id number] [address] [place] [address], [place] [address] Apr, [facility] [address] [id number] [address] [place] [address] Apr, [facility] [address] [id number] [address] [place] [address] Apr, [facility] [address] [id number] [address] [place] [address] Apr, [facility] [address] [id number] [address] [place] [address] Apr, [facility] [address] [id number] [address] [place] [address] Apr, [facility] [address] [id number] [address] [place] [address] Apr, [facility] [address] [id number] [address] [place] [address] Apr, [facility] [address] [id number] [address] [place] [address], [place] [address] Apr, [facility] [address] [id number] [address] [place] [address] Apr, [facility] [address] [id number] [address] [place] [address], [place] [address] Apr, [facility] [address] [id number] [facility] [place] [address] Apr, [facility] [address] [id number] [address] [place] [address], [place] [address] Mar, 2013 [facility] [address] [id number] [facility] [place] [address] 22 Mar, 2013 [facility] [address] [id number] [address] [place] [address], [place] [address] Mar, 2013 [facility] [address] [id number] [address] [place] [address], [place] [address] Mar, 2013 [facility] [address] [id number] [address] [place] [address], [place] [address] Mar, 2013 [facility] [address] [id number] [address] [place] [address], [place] [address] Mar, 2013 [facility] [address] [id number] [address] [place] [address], [place] [address] Mar, 2013 [facility] [address] [id number] [address] [place] [address], [place] [address] Mar, [facility] [address] [id number] [address] [place] [address], [place] [address] Mar, [facility] [address] [id number] [address] [place] [address], [place] [address] Mar, [facility] [address] [id number] [address] [place] [address], [place] [address] Feb, [facility] [address] [id number] [address] [place] [address], [place] [address] Feb, [facility] [address] [id number] [address] [place] [address], [place] [address] Feb, [facility] [address] [id number] [address] [place] [address], [place] [address] Feb, [facility] [address] [id number] [address] [place] [address], [place] [address] Feb, [facility] [address] [id number] [facility] [place] [address] Feb, [facility] [address] [id number] [address] [place] [address], [place] [address] Feb, [facility] [address] [id number] [address] [place] [address], [place] [address] Feb, [facility] [address] [id number] [address] [place] [address], [place] [address] Feb, [facility] [address] [id number] [address] [place] [address], [place] [address] Feb, [facility] [address] [id number] [address] [place] [address], [place] [address] Feb, [facility] [address] [id number] [address] [place] [address], [place] [address] Feb, [facility] [address] [id number] [address] [place] [address], [place] [address] Feb, [facility] [address] [id number] [address] [place] [address], [place] [address] Feb, [facility] [address] [id number] [address] [place] [address], [place] [address] Feb, [facility] [address] [id number] [address] [place] [address], [place] [address] Feb, [facility] [address] [id number] [address] [place] [address], [place] [address] Jan, [facility] [address] [id number] [address] [place] [address], [place] [address] Jan, [facility] [address] [id number] [address] [place] [address], [place] [address] Jan, [facility] [address] [id number] [address] [place] [address], [place] [address] Jan, [facility] [address] [id number] [address] [place] [address], [place] [address] 15 Jan, 2014 [facility] [address] [id number] [address] [place] [address], [place] [address] 15 Jan, 2014 [facility] [address] [id number] [address] [place] [address], [place] [address] Dec, [facility] [address] [id number] [address] [place] [address], [place] [address] Dec, [facility] [address] [id number] [address] [place] [address], [place] [address] Dec, [facility] [address] [id number] [address] [place] [address], [place] [address] Dec, [facility] [address] [id number] [address] [place] [address], [place] [address] Dec, [facility] [address] [id number] [address] [place] [address], [place] [address] Dec, [facility] [address] [id number] [address] [place] [address], [place] [address] Dec, [facility] [address] [id number] [address] [place] [address], [place] [address] Dec, [facility] [address] [id number] [address] [place] [address], [place] [address] November, [facility] [address] [id number] [address] [place] [address], [place] [address] November, [facility] [address] [id number] [address] [place] [address], [place] [address] November, [facility] [address] [id number] [address] [place] [address], [place] [address] November, [facility] [address] [id number] [address] [place] [address], [place] [address] November, [facility] [address] [id number] [address] [place] [address], [place] [address] November, [facility] [address] [id number] [facility] [place] [address] Oct, [facility] [address] [id number] [facility] [place] [address] Oct, [facility] [address] [id number] [facility] [place] [address] Oct, [facility] [address] [id number] [facility] [place] [address] Oct, [facility] [address] [id number] [facility] [place] [address] Sep, [facility] [address] [id number] [address] [place] [address], [place] [address] Sep, [facility] [address] [id number] [address] [place] [address], [place] [address] Sep, [facility] [address] [id number] [address] [place] [address], [place] [address] Sep, [facility] [address] [id number] [address] [place] [address], [place] [address] Sep, [facility] [address] [id number] [address] [place] [address], [place] [address] Sep, [facility] [address] [id number] [address] [place] [address], [place] [address] Aug, [facility] [address] [id number] [address] [place] [address], [place] [address] Aug, [facility] [address] [id number] [address] [place] [address], [place] [address] Aug, [facility] [address] [id number] [address] [place] [address], [place] [address] Aug, [facility] [address] [id number] [address] [place] [address], [place] [address] Aug, [facility] [address] [id number] [address] [place] [address], [place] [address] Aug, [facility] [address] [id number] [address] [place] [address], [place] [address] Jul, [facility] [address] [id number] [address] [place] [address], [place] [address] Jul, [facility] [address] [id number] [address] [place] [address], [place] [address] Jul, [facility] [address] [id number] [address] [place] [address], [place] [address] Jul, [facility] [address] [id number] [address] [place] [address], [place] [address] Jul, [facility] [address] [id number] [address] [place] [address], [place] [address] Jul, [facility] [address] [id number] [address] [place] [address], [place] [address] Jul, [facility] [address] [id number] [address] [place] [address], [place] [address] Jul, [facility] [address] [id number] [address] [place] [address], [place] [address] Jul, [facility] [address] [id number] [address] [place] [address], [place] [address] Jul, [facility] [address] [id number] [address] [place] [address], [place] [address] Jul, [facility] [address] [id number] [address] [place] [address], [place] [address] Jul, [facility] [address] [id number] [address] [place] [address], [place] [address] Jul, [facility] [address] [id number] [address] [place] [address], [place] [address] Jul, [facility] [address] [id number] [address] [place] [address], [place] [address] Jul, [facility] [address] [id number] [address] [place] [address], [place] [address] Jun, [facility] [address] [id number] [address] [place] [address], [place] [address] Jun, [facility] [address] [id number] [address] [place] [address], [place] [address] Jun, [facility] [address] [id number] [address] [place] [address], [place] [address] Jun, [facility] [address] [id number] [address] [place] [address], [place] [address] May, [facility] [address] [id number] [address] [place] [address], [place] [address] May, [facility] [address] [id number] [place] [id number] May, [facility] [address] [id number] [address] [place] [address], [place] [address] May, [facility] [address] [id number] [address] [place] [address] May, [facility] [address] [id number] [address] [place] [address], [place] [address] May, [facility] [address] [id number] [address] [place] [address] May, [facility] [address] [id number] [address] [place] [address], [place] [address] May, [facility] [address] [id number] [address] [place] [address] May, [facility] [place] [address] [id number] [place] [id number] May, [facility] [address] [id number] [address] [place] [address], [place] [address] May, [facility] [address] [id number] [place] [id number] May, [facility] [address] [id number] [address] [address] May, [facility] [address] [id number] Romelia SUBRAMANIAN S [id number] May, [facility] [address] [facility] [id number] [place] [address] May, IMMUNIZATIONS No Known Immunizations SOCIAL HISTORY [...] leukocytosis--tank davis 01/08/16 Hospitalization History pseudomemranous colitis, sepsis--[facility] 04/21/2016 Hospitalization History C Diff--[facility] 05/10/2016 Hospitalization History sepsis, pneumonia, diarrhea--[facility] Hospitalization History recurrent cdiff, pneumonia-[facility] Hospitalization History sepsis,pneumonia- [facility] 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
--- NOTE | 2019-11-11 03:08 | ED EENT ---
History of Present Illness General Chief Complaint: Nasal Problems Stated Complaint: NOSE BLEED Source: patient Exam Limitations: no limitations History of Present Illness Date Seen by Provider: November 11, 2019 Time Seen by Provider: 02:54 Initial Comments Patient presents ER by private conveyance from home with chief complaint of a nosebleed going on for the greater part of the day. She been to the emergency room twice now on the and again on the in the past week and has placed compression over her nose. She is on Eliquis. She was unable to get into Dr. Maguire, ear nose and throat because he was out of town. She has had frequent nosebleeds in the past. She denies shortness of breath chest pain or palpitations. She denies any trauma. She is oxygen dependent at home. Seem to have spontaneously stopped on those 2 previous visits. HAS HISTORY OF CVA WITH SOME EXPRESSIVE APHASIA AND RIGHT SIDE WEAKNESS ALSO HAS HISTORY OF ORAL CANCER HAD P.E. 08/16/19 AND HAS BEEN ON ELIQUIS Allergies and Home Medications Allergies Coded Allergies: ceftriaxone (Verified Allergy, Severe, DIFFICULTY BREATING, 07/05/19) levofloxacin (Verified Allergy, Severe, C-DIFF, 07/05/19) Home Medications Albuterol Sulfate 2.5 Mg/3 Ml Vial.neb, 2.5 MG NEB Q6H PRN for SHORTNESS OF BREATH, (Reported) Apixaban 5 Mg Tablet, 0 PEG UD 10 mg twice daily for 9 days, then 5 mg twice daily. Prescribed by: SATNAM MIKE on 08/18/19 1041 Aspirin 81 Mg Tab.chew, 81 MG PEG HS, (Reported) Budesonide/Formoterol Fumarate 10.2 Gm Hfa.aer.ad, 2 PUFF INH BID, (Reported) Cyclobenzaprine HCl 5 Mg Tablet, 5 MG PEG DAILY PRN for MUSCLE SPASMS, (Reported) Etanercept 50 Mg/1 Ml Syringe, 50 MG INJ We, (Reported) Fluconazole 100 Mg Tablet, 100 MG PEG DAILY Prescribed by: SATNAM MIKE on 08/18/19 1041 Gabapentin 250 Mg/5 Ml Solution, 6 ML PEG BID, (Reported) Hydrocodone/Acetaminophen 118 Ml Solution, 15 ML PEG BID, (Reported) L.acidoph & Paracasei,B.lactis 1 Each Capsule, 1 CAP PEG DAILY, (Reported) Montelukast Sodium 5 Mg Tab.chew, 10 MG PEG HS, (Reported) TAKES 2 (5MG) TABLETS Ondansetron 8 Mg Tab.rapdis, 8 MG PEG Q8H PRN for NAUSEA/VOMITING-1ST LINE, (Reported) Sertraline HCl 20 Mg/1 Ml Oral.conc, 2.5 ML PEG DAILY, (Reported) MIX WITH 4 OZ. ORANGE JUCIE, LEMONADE, AMBER ROBI, OR LEMON AFOGNAK SODA Tiotropium [place] 4 Gm Mist.inhal, 1 PUFF INH BID, (Reported) Zolpidem Tartrate 5 Mg Tablet, 5 MG PEG HS, (Reported) Patient Home Medication List Home Medication List Reviewed: Yes Review of Systems Review of Systems Constitutional: No chills, No diaphoresis Eyes: Denies Blindness, Denies Drainage Ears: Denies Dizziness, Denies Pain Nose: see HPI, clots, epistaxis Mouth: denies clots, denies loose teeth Throat: denies pain, denies swelling All Other Systems Reviewed Negative Unless Noted: Yes Past Pahyycq-Osksxy-Ewcnpe Hx Patient Social History Alcohol Use: Denies Use Recreational Drug Use: No Smoking Status: Former Smoker Type Used: Cigarettes Former Smoker, Quit: Jul 13, 2014 2nd Hand Smoke Exposure: No Recent Foreign Travel: No Contact w/Someone Who Travel: No Recent Hopitalizations: No Immunizations Up To Date Tetanus Booster (TDap): Unknown PED Vaccines UTD: Yes Date of Pneumonia Vaccine: Jun 15, 2019 Date of Influenza Vaccine: Apr 12, 2018 Seasonal Allergies Seasonal Allergies: Yes Past Medical History Surgeries: Yes (heart ablation, mouth cancer, feeding tube,peripheral stents) Abdominal, Cardiac, Joint Replacement, Orthopedic, Vascular Surgery Respiratory: Yes (O2 3.5L NC AT NIGHT AND PRN;P.E. 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 ) Arthritis, Rheumatoid Arthritis Endocrine: No HEENT: Yes (GLASSES; ORAL CANCER-S/P SURGERY) Dysphagia, Tinnitis Loss of Vision: Bilateral Hearing Impairment: Denies Cancer: Yes Oral Did You Recieve Any Treatments: Yes What Type of Treatment Did You: Chemotherapy, Radiation, Surgical Intervention Psychosocial: Yes Sleep Difficulties, Anxiety, Depression Integumentary: No Blood Disorders: No Adverse Reaction/Blood Tranf: No (N/A) Family Medical History Cancer 09 SISTER Family history: Arthritis 09 BROTHER 09 SISTER Family history: Cardiovascular disease 09 SISTER Family history: Thyroid disorder 09 SISTER Malignant neoplasm of lung 09 SISTER Heart Disease Physical Exam Vital Signs Vital Signs - First Documented 11/11/19 02:53 Temp 36.6 Pulse 88 Resp 18 B/P (MAP) 148/81 (103) Pulse Ox 90 O2 Delivery Room Air Height, Weight, BMI Height: 5'2.00" Weight: 180lbs. 0.0oz. 81.156086yj; 26.00 BMI Method:Actual General Appearance: WD/WN, no apparent distress Eyes: bilateral eye normal inspection, bilateral eye PERRL, bilateral eye EOMI Ears: bilateral ear auricle normal, bilateral ear canal normal, bilateral ear TM normal Nose: active bleeding (left worse than right); No foreign body, No sinus tenderness Mouth/Throat: other (bloody discharge, moist oral mucosa) Neck: non-tender, full range of motion, supple, normal inspection Cardiovascular: normal peripheral pulses, regular rate, rhythm (85 bpm) Respiratory: no respiratory distress, no accessory muscle use, other (O2 sats around 88-92% on 2 L.) Neurologic/Psychiatric: alert, normal mood/affect, oriented x 3 Progress/Results/Core Measures Results/Orders Lab Results Laboratory Tests Test 11/11/19 03:10 Range/Units White Blood Count 11.0 4.3-11.0 10^3/uL Red Blood Count 3.08 L 4.35-5.85 10^6/uL Hemoglobin 10.2 L 11.5-16.0 G/DL Hematocrit 31 L 35-52 % Mean Corpuscular Volume 101 H 80-99 FL Mean Corpuscular Hemoglobin 33 25-34 PG Mean Corpuscular Hemoglobin Concent 33 32-36 G/DL Red Cell Distribution Width 13.6 10.0-14.5 % Platelet Count 419 H 130-400 10^3/uL Mean Platelet Volume 9.7 7.4-10.4 FL Neutrophils (%) (Auto) 53 42-75 % Lymphocytes (%) (Auto) 30 12-44 % Monocytes (%) (Auto) 11 0-12 % Eosinophils (%) (Auto) 6 0-10 % Basophils (%) (Auto) 1 0-10 % Neutrophils # (Auto) 5.8 1.8-7.8 X 10^3 Lymphocytes # (Auto) 3.3 1.0-4.0 X 10^3 Monocytes # (Auto) 1.2 H 0.0-1.0 X 10^3 Eosinophils # (Auto) 0.6 H 0.0-0.3 10^3/uL Basophils # (Auto) 0.1 0.0-0.1 10^3/uL Sodium Level 139 135-145 MMOL/L Potassium Level 4.3 3.6-5.0 MMOL/L Chloride Level 102 98-107 MMOL/L Carbon Dioxide Level 25 21-32 MMOL/L Anion Gap 12 5-14 MMOL/L Blood Urea Nitrogen 20 H 7-18 MG/DL Creatinine 0.66 0.60-1.30 MG/DL Estimat Glomerular Filtration Rate > 60 BUN/Creatinine Ratio 30 Glucose Level 102 70-105 MG/DL Calcium Level 9.7 8.5-10.1 MG/DL Corrected Calcium 10.0 8.5-10.1 MG/DL Total Bilirubin 0.2 0.1-1.0 MG/DL Aspartate Amino Transf (AST/SGOT) 14 5-34 U/L Alanine Aminotransferase (ALT/SGPT) 13 0-55 U/L Alkaline Phosphatase 78 40-136 U/L Total Protein 7.7 6.4-8.2 GM/DL Albumin 3.6 3.2-4.5 GM/DL My Orders Orders - JANICE CARDOSO Oxymetazoline 0.05% Nasal [place] (Afrin 0. (11/11/19 02:53) Cbc With Automated Diff (11/11/19 03:02) Comprehensive Metabolic Panel (11/11/19 03:02) Oxymetazoline 0.05% Nasal [place] (Afrin 0. (11/11/19 09:00) Vital Signs/I&O 11/11/19 02:53 Temp 36.6 Pulse 88 Resp 18 B/P (MAP) 148/81 (103) Pulse Ox 90 O2 Delivery Room Air Progress Progress Note #1: Time: 03:06 Progress Note Oxymetazoline 4 puffs each nostril. Put a nasal clamp on set her forward and asked her to expectorate her secretions. We have kept her on her home oxygen and she is not short of breath. This appears to be baseline for her. Progress Note #2: Time: 03:41 Progress Note Patient's epistaxis stopped shortly after application of oxymetazoline and nasal clamp. Rest send her home with these tools and return precautions. Patient's hemoglobin is down about 1 mg/dL from 2 days ago. Departure Impression Primary Impression: Epistaxis Disposition: HOME, SELF-CARE Condition: Improved Departure-Patient Inst. Decision time for Depature: 03:40 Referrals: SABINO MAGUIRE MD [facility] (PCP/Family) Primary Care Physician Patient Instructions: Nosebleeds (DC) Add. Discharge Instructions: If you nose begins to bleed again then you should apply 4 puffs of the oxymetazoline up each nostril. Place the clamp across to your nose and sit up. Spit out any blood or secretions. Do not swallow them. Do not blow your nose. Do not put anything in your nose. If after 40 minutes of clamp time you still cannot get the bleeding to stop then please return to the ER. If you begin to experience chest pain, shortness of breath or other worrisome symptoms then please return to the ER. Keep your scheduled appointment with Dr. Maguire, ear nose and throat surgeon on Thursday. All discharge instructions reviewed with patient and/or family. Voiced understanding. JANICE CARDOSO November 11, 2019 03:08
[2019-11-11 03:18] LABS: BASOPHILS # (AUTO) 0.1 10^3/uL (0.0-0.1); BASOPHILS % (AUTO) 1 % (0-10); EOSINOPHILS # (AUTO) 0.6 10^3/uL (0.0-0.3); EOSINOPHILS % (AUTO) 6 % (0-10); HEMATOCRIT 31 % (35-52); HEMOGLOBIN 10.2 G/DL (11.5-16.0); LYMPHOCYTES # (AUTO) 3.3 X 10^3 (1.0-4.0); LYMPHOCYTES % (AUTO) 30 % (12-44); MEAN CORPUSCULAR HEMOGLOBIN 33 PG (25-34); MEAN CORPUSCULAR HGB CONC 33 G/DL (32-36); MEAN CORPUSCULAR VOLUME 101 FL (80-99); MEAN PLATELET VOLUME 9.7 FL (7.4-10.4); MONOCYTES # (AUTO) 1.2 X 10^3 (0.0-1.0); MONOCYTES % (AUTO) 11 % (0-12); NEUTROPHILS # (AUTO) 5.8 X 10^3 (1.8-7.8); NEUTROPHILS % (AUTO) 53 % (42-75); PLATELET COUNT 419 10^3/uL (130-400); RED CELL DISTRIBUTION WIDTH 13.6 % (10.0-14.5)
--- OUTSIDE RECORDS SUMMARY | 2019-11-11 03:30 | XMS REPORT | Continuity of Care Document ---
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 06/11/1553 MARLENA HURTADO Ot J44.9 CHRONIC OBSTRUCTIVE PULMONARY DISEASE, U 06/11/1553 MARLENA HURTADO Ot Z79.899 OTHER REHABILITATION THERAPY AIDE (CURRENT) DRUG THERAPY 05/16/2013 ADPHNE YUSUF APRN 919.5 INSECT BITE INFECTED 05/16/2013 MADELIN DAY CARE HOME MOTHER, DAPHNE S V06.1 TDAP DX 05/16/2013 MADELIN DAY CARE HOME MOTHER, DAPHNE S 919.5 INSECT BITE INFECTED 05/16/2013 MADELIN DAY CARE HOME MOTHER, DAPHNE S V06.1 TDAP DX 05/16/2013 MADELIN DAY CARE HOME MOTHER, DAPHNE S 919.5 INSECT BITE INFECTED 05/16/2013 MADELIN DAY CARE HOME MOTHER, DAPHNE S V06.1 TDAP DX 05/16/2013 MADELIN DAY CARE HOME MOTHER, DAPHNE S 919.5 INSECT BITE INFECTED 05/16/2013 MADELIN DAY CARE HOME MOTHER, DAPHNE S V06.1 TDAP DX 05/16/2013 MADELIN DAY CARE HOME MOTHER, DAPHNE S 919.5 INSECT BITE INFECTED 05/16/2013 MADELIN DAY CARE HOME MOTHER, DAPHNE S V06.1 TDAP DX 05/16/2013 MIKHAIL RIVAS MD 919.5 INSECT BITE INFECTED 05/16/2013 MIKHAIL RIVAS MD V06.1 TDAP DX 05/16/2013 MADELIN [employer] C[employer] HOME MOTHER, DAPHNE S 919.5 INSECT BITE INFECTED 05/16/2013 MADELIN DAY CARE HOME MOTHER, DAPHNE S V06.1 TDAP DX 05/16/2013 MADELIN DAY CARE HOME MOTHER, DAPHNE S 919.5 INSECT BITE INFECTED 05/16/2013 MADELIN DAY CARE HOME MOTHER, DAPHNE S V06.1 TDAP DX 05/16/2013 MADELIN DAY CARE HOME MOTHER, DAPHNE S 919.5 INSECT BITE INFECTED 05/16/2013 MADELIN DAY CARE HOME MOTHER, DAPHNE S V06.1 TDAP DX 05/16/2013 PEREZ DAY CARE HOME MOTHER, HAO D 919. 5 INSECT BITE INFECTED 05/16/2013 PEREZ DAY CARE HOME MOTHER, HAO D V06. 1 TDAP DX 05/16/2013 MADELIN DAY CARE HOME MOTHER, DAPHNE S 919.5 INSECT BITE INFECTED 05/16/2013 MADELIN DAY CARE HOME MOTHER, DAPHNE S V06.1 TDAP DX 05/16/2013 PEREZ DAY CARE HOME MOTHER, HAO D 919. 5 INSECT BITE INFECTED 05/16/2013 PEREZ DAY CARE HOME MOTHER, HAO D V06. 1 TDAP DX 05/16/2013 MADELIN DAY CARE HOME MOTHER, DAPHNE S 919.5 INSECT BITE INFECTED 05/16/2013 MADELIN DAY CARE HOME MOTHER, DAPHNE S V06.1 TDAP DX 05/16/2013 MADELIN DAY CARE HOME MOTHER, DAPHNE S 919.5 INSECT BITE INFECTED 05/16/2013 MADELIN DAY CARE HOME MOTHER, DAPHNE S V06.1 TDAP DX 05/28/2013 MADELIN DAY CARE HOME MOTHER, DAPHNE S 443.9 PERIPHERAL VASCULAR DISEASE UNSPECIFIED 05/28/2013 MADELIN DAY CARE HOME MOTHER, DAPHNE S 443.9 PERIPHERAL VASCULAR DISEASE UNSPECIFIED 05/28/2013 MADELIN DAY CARE HOME MOTHER, DAPHNE S 443.9 PERIPHERAL VASCULAR DISEASE UNSPECIFIED 05/28/2013 MADELIN DAY CARE HOME MOTHER, DAPHNE S 443.9 PERIPHERAL VASCULAR DISEASE UNSPECIFIED 05/28/2013 MADELIN DAY CARE HOME MOTHER, DAPHNE S 443.9 PERIPHERAL VASCULAR DISEASE UNSPECIFIED 05/28/2013 MIKHAIL RIVAS MD 443.9 PERIPHERAL VASCULAR DISEASE UNSPECIFIED 05/28/2013 MADELIN DAY CARE HOME MOTHER, DAPHNE S 443.9 PERIPHERAL VASCULAR DISEASE UNSPECIFIED 05/28/2013 MADELIN DAY CARE HOME MOTHER, DAPHNE S 443.9 PERIPHERAL VASCULAR DISEASE UNSPECIFIED 05/28/2013 MADELIN DAY CARE HOME MOTHER, DAPHNE S 443.9 PERIPHERAL VASCULAR DISEASE UNSPECIFIED 05/28/2013 HAO PEREZ APRN 443. 9 PERIPHERAL VASCULAR DISEASE UNSPECIFIED 05/28/2013 MADELIN DAY CARE HOME MOTHER, DAPHNE S 443.9 PERIPHERAL VASCULAR DISEASE UNSPECIFIED 05/28/2013 HAO PEREZ APRN 443. 9 PERIPHERAL VASCULAR DISEASE UNSPECIFIED 05/28/2013 MADELIN DAY CARE HOME MOTHER, DAPHNE S 443.9 PERIPHERAL VASCULAR DISEASE UNSPECIFIED 05/28/2013 MADELIN DAY CARE HOME MOTHER, DAPHNE S 443.9 PERIPHERAL VASCULAR DISEASE UNSPECIFIED 06/21/2013 MADELIN PALMA, DAPHNE S 714.0 RHEUMATOID ARTHRITIS 06/21/2013 MADELIN DAY CARE HOME MOTHER, DAPHNE S 715.00 OSTEOARTHROSIS GENERALIZED INVOLVING UNSPECIFIED SITE 06/21/2013 JESSICA YUSUF APRNNDA S V15.82 Nicotine abuse 06/21/2013 JESSICA YUSUF APRNNDA S V58.69 HIGH RISK MEDICATION 06/21/2013 MADELIN DAY CARE HOME MOTHER, DAPHNE S V70.0 EXAM - ROUTINE H&P 06/21/2013 MADELIN DAY CARE HOME MOTHER, DAPHNE S 714.0 RHEUMATOID ARTHRITIS 06/21/2013 MADELIN DAY CARE HOME MOTHER, DAPHNE S 715.00 OSTEOARTHROSIS GENERALIZED INVOLVING UNSPECIFIED SITE 06/21/2013 MADELIN DAY CARE HOME MOTHER, DAPHNE S V15.82 Nicotine abuse 06/21/2013 MADELIN DAY CARE HOME MOTHER, DAPHNE S V58.69 HIGH RISK MEDICATION 06/21/2013 MADELIN DAY CARE HOME MOTHER, DAPHNE S V70.0 EXAM - ROUTINE H&P 06/21/2013 MADELIN DAY CARE HOME MOTHER, DAPHNE S 714.0 RHEUMATOID ARTHRITIS 06/21/2013 MADELIN DAY CARE HOME MOTHER, DAPHNE S 715.00 OSTEOARTHROSIS GENERALIZED INVOLVING UNSPECIFIED SITE 06/21/2013 MADELIN DAY CARE HOME MOTHER, DAPHNE S V15.82 Nicotine abuse 06/21/2013 MADELIN GUEVARAN, DAPHNE S V58.69 HIGH RISK MEDICATION 06/21/2013 MADELIN GUEVARAN, DAPHNE S V70.0 EXAM - ROUTINE H&P 06/21/2013 EVELYN ALFORD, MIHKAIL 714.0 RHEUMATOID ARTHRITIS 06/21/2013 EVELYN ALFORD, MIKHAIL 715.0 0 OSTEOARTHROSIS GENERALIZED INVOLVING UNSPECIFIED SITE 06/21/2013 EVELYN ALFORD, MIKHAIL V15.8 2 Nicotine abuse 06/21/2013 EVELYN ALFORD, MIKHAIL V58.6 9 HIGH RISK MEDICATION 06/21/2013 EVELYN ALFORD, MIKHAIL V70.0 EXAM - ROUTINE H&P 06/21/2013 MADELIN GUEVARAN, DAPHNE S 714.0 RHEUMATOID ARTHRITIS 06/21/2013 MADELIN GUEVARAN, DAPHNE S 715.00 OSTEOARTHROSIS GENERALIZED INVOLVING UNSPECIFIED SITE 06/21/2013 MADELIN GUEVARAN, DAPHEN S V15.82 Nicotine abuse 06/21/2013 MADELIN GUEVARAN, DAPHNE S V58.69 HIGH RISK MEDICATION 06/21/2013 MADELIN DAY CARE HOME MOTHER, DAPHNE S V70.0 EXAM - ROUTINE H&P 06/21/2013 MADELIN DAY CARE HOME MOTHER, DAPHNE S 714.0 RHEUMATOID ARTHRITIS 06/21/2013 MADELIN [...] OSTEOARTHROSIS GENERALIZED INVOLVING UNSPECIFIED SITE 06/21/2013 MADELIN DAY CARE HOME MOTHER, DAPHNE S V15.82 Nicotine abuse 06/21/2013 MADELIN DAY C[employer] HOME MOTHER DAPHNE S V58.69 HIGH RISK MEDICATION 06/21/2013 MADELIN DAY CARE HOME MOTHER, DAPHNE S V70.0 EXAM - ROUTINE H&P [...] APRN V15. 82 Nicotine abuse 06/21/2013 PEREZ DAY CARE HOME MOTHER, HAO D V58. 69 HIGH RISK MEDICATION 06/21/2013 PEREZ DAY CARE HOME MOTHERHAO Castro V70. 0 EXAM - ROUTINE H&P 06/21/2013 MADELIN DAY C[employer] HOME MOTHER, DAPHNE S 714.0 RHEUMATOID ARTHRITIS 06/21/2013 MADELIN DAY CARE HOME MOTHER, DAPHNE S 715.00 OSTEOARTHROSIS GENERALIZED INVOLVING UNSPECIFIED SITE 06/21/2013 MADELIN DAY C[employer] HOME MOTHER, DAPHNE S V15.82 Nicotine abuse 06/21/2013 MADELIN DAY CARE HOME MOTHER, DAPHNE S V58.69 HIGH RISK MEDICATION 06/21/2013 MADELIN DAY CARE HOME MOTHER, DAPHNE S V70.0 EXAM - ROUTINE H&P 06/21/2013 MADELIN DAY CARE HOME MOTHER, DAPHNE S 714.0 RHEUMATOID ARTHRITIS 06/21/2013 MADELIN DAY C[employer] HOME MOTHER, DAPHNE S 715.00 OSTEOARTHROSIS GENERALIZED INVOLVING UNSPECIFIED SITE 06/21/2013 MADELIN DAY C[employer] HOME MOTHER, DAPHNE S V15.82 Nicotine abuse 06/21/2013 MADELIN [employer] C[employer] MOTHER, DAPHNE S V58.69 HIGH RISK MEDICATION 06/21/2013 MADELIN DAY C[employer] HOME MOTHER, DAPHNE S V70.0 EXAM - ROUTINE H&P [...] DAPHNE S 300.4 DYSTHYMIC DIS 06/29/2013 MADELIN [employer] C[employer] MOTHER, DAPHNE S 780.52 INSOMNIA UNSPECIFIED 06/29/2013 MADELIN DAY C[employer] MOTHER, DAPHNE S 300.4 DYSTHYMIC DIS 06/29/2013 MADELIN [employer] C[employer] MOTHER, DAPHNE S 780.52 INSOMNIA UNSPECIFIED 06/29/2013 PEREZ DAY CARE HOME MOTHER, HAO Carolynn 300. 4 DYSTHYMIC DIS 06/29/2013 PEREZ DAY CARE HOME MOTHER, HAO Carolynn 780. 52 INSOMNIA UNSPECIFIED 06/29/2013 MADELIN DAY C[employer] MOTHER, DAPHNE S 300.4 DYSTHYMIC DIS 06/29/2013 MADELIN DAY C[employer] HOME MOTHER, DAPHNE S 780.52 INSOMNIA UNSPECIFIED 06/29/2013 PEREZ DAY C[employer] HOME MOTHER, HAO D 300. 4 DYSTHYMIC DIS 06/29/2013 PEREZ DAY C[employer] HOME MOTHER, HAO D 780. 52 INSOMNIA UNSPECIFIED 06/29/2013 MADELIN DAY CARE HOME MOTHER, DAPHNE S 300.4 DYSTHYMIC DIS 06/29/2013 MADELIN DAY C[employer] HOME MOTHER, DAPHNE S 780.52 INSOMNIA UNSPECIFIED 06/29/2013 MADELIN DAY C[employer] HOME MOTHER, DAPHNE S 300.4 DYSTHYMIC DIS 06/29/2013 MADELIN [employer] C[employer] MOTHER, DAPHNE S 780.52 INSOMNIA UNSPECIFIED 08/01/2013 MADELIN DAY C[employer] MOTHER, DAPHNE S 876.0 OPEN WOUND OF BACK WITHOUT COMPLICATION 08/01/2013 MADELIN [employer] C[employer] MOTHER, DAPHNE S 876.0 OPEN WOUND OF BACK WITHOUT COMPLICATION 08/01/2013 MIKHAIL RIVAS MD 876.0 OPEN WOUND OF BACK WITHOUT COMPLICATION 08/01/2013 MADELIN [employer] C[employer] MOTHER, DAPHNE S 876.0 OPEN WOUND OF BACK WITHOUT COMPLICATION 08/01/2013 MADELIN DAY C[employer] HOME MOTHER, DAPHNE S 876.0 OPEN WOUND OF BACK WITHOUT COMPLICATION 08/01/2013 MADELIN DAY CARE HOME MOTHER, DAPHNE S 876.0 OPEN WOUND OF BACK WITHOUT COMPLICATION 08/01/2013 HAO PEREZ APRN 876. 0 OPEN WOUND OF BACK WITHOUT COMPLICATION 08/01/2013 MADELIN DAY CARE HOME MOTHER, DAPHNE S 876.0 OPEN WOUND OF BACK WITHOUT COMPLICATION 08/01/2013 HAO PEREZ APRN 876. 0 OPEN WOUND OF BACK WITHOUT COMPLICATION 08/01/2013 MADELIN DAY CARE HOME MOTHER, DAPHNE S 876.0 OPEN WOUND OF BACK WITHOUT COMPLICATION 08/01/2013 MDAELIN DAY CARE HOME MOTHER, DAPHNE S 876.0 OPEN WOUND OF BACK WITHOUT COMPLICATION 08/02/2013 MADELIN DAY CARE HOME MOTHER, DAPHNE S V72.84 PRE-OPERATIVE EXAM 08/02/2013 MADELIN DAY C[employer] MOTHER, DAPHNE S V72.84 PRE-OPERATIVE EXAM 08/02/2013 MIKHAIL RIVAS MD V72.8 4 PRE-OPERATIVE EXAM 08/02/2013 MADELIN DAY CARE HOME MOTHER, DAPHNE S V72.84 PRE-OPERATIVE EXAM 08/02/2013 MADELIN DAY CARE HOME MOTHER, DAPHNE S V72.84 PRE-OPERATIVE EXAM 08/02/2013 MADELIN PALMA, DAPHNE S V72.84 PRE-OPERATIVE EXAM 08/02/2013 HAO PEREZ APRN V72. 84 PRE-OPERATIVE EXAM 08/02/2013 MADELIN PALMA, DAPNHE S V72.84 PRE-OPERATIVE EXAM 08/02/2013 HAO PEREZ [...] REVEAL MARISSA ALFORD Ot 440. 24 ATHEROSCL MARSHALL ARTERIES EXTREMITIES W 08/10/2013 REVEAL MARISSA ALFORD [...] 02/17/2014 JORGE AUGUST MD Ot 440.21 ATHEROSCL MARSHALL ARTER EXTREM W INTERMIT 02/17/2014 JORGE AUGUST [...] 03/31/2014 JORGE AUGUST MD Ot 440.20 ATHEROSCLEROSIS MARSHALL ARTERIES EXTREMIT 03/31/2014 JORGE AUGUST MD Ot [...] 32 LATERAL EPICONDYLITIS [place]ION 07/20/2014 MADELIN DAY CARE HOME MOTHER, DAPHNE S 715.17 OSTEOARTHROSIS LOCALIZED PRIMARY INVOLVING ANKLE AND F OOT 07/20/2014 MADELIN DAY C[employer] HOME MOTHER, DAPHNE S 726.32 LATERAL EPICONDYLITIS [place] REGION 07/20/2014 MADELIN DAY CARE HOME MOTHER, DAPHNE S 715.17 OSTEOARTHROSIS LOCALIZED PRIMARY INVOLVING ANKLE AND F OOT 07/20/2014 MADELIN DAY CARE HOME MOTHER, DAPHNE S 726.32 LATERAL EPICONDYLITIS ELBOW REGION [...] ALFORD, JUNIOR Brannon Ot V58.8 3 01/04/2015 SUNDAR ALFORD, JUNIOR Brannon Ot V58.6 1 01/04/2015 SUNDAR ALFORD, JUNIOR Brannon Ot V58.8 3 01/04/2015 MARJORIE EDUAROD FAN MAIL EDITOR Ot 305.1 01/04/2015 MARJORIE EDUARDO FAN MAIL EDITOR Ot 427.0 01/04/2015 MARJORIE EDUARDO FAN MAIL EDITOR Ot 443.9 01/04/2015 MARJORIE EDUARDO FAN MAIL EDITOR Ot 4 96 01/05/2015 RASHID ALFORD, SATNAM Castro Ot 272 .4 01/05/2015 RASHID ALFORD, SATNAM Castro Ot 275 .2 01/05/2015 RASHID ALFORD, SATNAM N Ot 305 .1 01/05/2015 RASHID ALFORD, SATNAM N Ot 342.90 01/05/2015 RASHID ALFORD, SATNAM N Ot 433.11 01/05/2015 RASHID ALFORD, SATNAM N Ot 433.31 01/05/2015 RASHID ALFORD, SATNAM N Ot 443 .9 01/05/2015 RASHID ALFORD, [...] ALFORD, SATNAM N Ot 433.11 01/06/2015 RASHID ALFODR, SATNAM N Ot 433.31 01/06/2015 RASHID ALFORD, SATNAM N Ot 443 .9 01/06/2015 RASHID ALFORD, SATNAM N Ot 491.21 01/06/2015 RASHID ALFORD, SATNAM N Ot 714 .0 01/06/2015 RASHID ALFORD, SATNAM N Ot 715.90 01/06/2015 RASHID ALFORD, SATNAM N Ot 784 .3 01/06/2015 RASHDI ALFORD, SATNAM N Ot 787.20 01/06/2015 RASHID [...] Brannon Ot V58.8 3 01/09/2015 MARJORIE EDUARDO FAN MAIL EDITOR Ot 305.1 01/09/2015 MARJORIE EDUARDO FAN MAIL EDITOR Ot 427.0 01/09/2015 MARJORIE EDUARDO FAN MAIL EDITOR Ot 443.9 01/09/2015 ALESHA MARJORIE Carlyn FAN MAIL EDITOR Ot 4 96 01/15/2015 CORONA ALFORD, JEANNE [...] 443.9 PERIPH VASCULAR DIS NOS 01/15/2015 CORONA ALFORD, JEANNE E Ot 491.2 1 OBSTR CHRONIC [...] ALFORD, JUNIOR Brannon Ot V58.8 3 06/28/2015 MARJORIE EDUARDO Ot 305.1 06/28/2015 BAIMARJORIE KOLB L FAN MAIL EDITOR Ot 427.0 06/28/2015 ALESHAMARJORIE L FAN MAIL EDITOR Ot 443.9 06/28/2015 ALESHAMARJORIE L FAN MAIL EDITOR Ot 4 96 07/19/2015 DAPHNE YUSUF FAN MAIL EDITOR Ot I73.9 07/25/2015 PILI YUSUFA FAN MAIL EDITOR Ot I73.9 08/10/2015 DAPHNE YUSUF FAN MAIL EDITOR Ot I69.920 08/10/2015 PILI YUSUFA FAN MAIL EDITOR Ot I69.990 09/07/2015 PILI YUSUFA FAN MAIL EDITOR Ot I69.920 09/07/2015 PILI YUSUFA FAN MAIL EDITOR Ot I69.990 09/17/2015 DAPHNE YUSUF FAN MAIL EDITOR Ot 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 09/17/2015 DAPHNE YUSUF FAN MAIL EDITOR Ot 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 10/23/2015 [...] Ot V58.8 3 10/23/2015 YURIMARJORIE KOLB Carlyn FAN MAIL EDITOR Ot 305.1 10/23/2015 YURIMARJORIE KOLB Carlyn FAN MAIL EDITOR Ot 427.0 10/23/2015 YURIMARJORIE KOLB L FAN MAIL EDITOR Ot 443.9 10/23/2015 ALESHA MARJORIE L FAN MAIL EDITOR Ot 4 96 10/23/2015 DAPHNE YUSUF FAN MAIL EDITOR Ot I73.9 10/24/2015 RASHID ALFORD, SATNAM Castro [...] [place] 10/24/2015 SATNAM MIKE MD Ot I70.203 [facility] ARTERIES [facility] 10/24/2015 SATNAM MIKE MD Ot J44 .1 [...] [place] 10/24/2015 SATNAM MIKE MD Ot I70.203 [facility] ARTERIES [facility] 10/24/2015 SATNAM MIKE MD Ot J44 .1 [...] Ot R05 COUGH 11/21/2015 MARYCHUY DUARTEINE E DAY CARE HOME MOTHER Ot R06.2 WHEEZING 11/21/2015 JESSICA ALFORD FAC, AUGIE ELI CCDS Ot R06.02 SHORTNESS OF BREATH 11/22/2015 KETAN DUARTE DAY CARE HOME MOTHER Ot J44.9 CHRONIC OBSTRUCTIVE PULMONARY DISEASE, U 11/23/2015 GERALD, KETAN Anmol DAY CARE HOME MOTHER Ot F17.201 NICOTINE DEPENDENCE, UNSPECIFIED, IN REM 11/23/2015 GERALDMARYCHUY ELLISONINE Anmol DAY CARE HOME MOTHER Ot J44.9 CHRONIC OBSTRUCTIVE PULMONARY DISEASE, U 11/23/2015 GERALD, KETAN E DAY CARE HOME MOTHER Ot R05 COUGH 11/23/2015 GERALDMARYCHUY ELLISONINE E DAY CARE HOME MOTHER Ot R06.2 WHEEZING 11/23/2015 GERALDMARYCHUY ELLISONINE Anmol DAY CARE HOME MOTHER Ot F17.201 NICOTINE DEPENDENCE, UNSPECIFIED, IN REM 11/23/2015 GERALDMARYCHUY ELLISONINE Anmol DAY CARE HOME MOTHER Ot J44.9 CHRONIC OBSTRUCTIVE PULMONARY DISEASE, U 11/23/2015 GERALDMARYCHUY ELLISONINE E DAY CARE HOME MOTHER Ot R05 COUGH 11/23/2015 MARYCHUY DUARTEINE E DAY CARE HOME MOTHER Ot R06.2 WHEEZING 11/29/2015 NAM GASPAR FAN MAIL EDITOR Ot R06.02 SHORTNESS OF BREATH 11/29/2015 NAM GASPAR FAN MAIL EDITOR Ot R60.9 EDEMA, UNSPECIFIED 12/09/2015 JUNIOR ORNELAS [...] FOR THERAPEUTIC DRUG MONITORIN 12/09/2015 MARJORIE EDUARDO FAN MAIL EDITOR Ot 305.1 TOBACCO USE DISORDER 12/09/2015 MARJORIE EDUARDO FAN MAIL EDITOR Ot 427.0 PAROX ATRIAL TACHYCARDIA 12/09/2015 MARJROIE EDUARDO FAN MAIL EDITOR Ot 443.9 PERIPH VASCULAR DIS NOS 12/09/2015 YURIMARJORIE KOLB FAN MAIL EDITOR Ot 4 96 CHR AIRWAY OBSTRUCT NEC 12/09/2015 DAPHNE YUSUF FAN MAIL EDITOR Ot I73.9 PERIPHERAL VASCULAR DISEASE, UNSPECIFIED 12/09/2015 NAM GASPAR FAN MAIL EDITOR Ot R06.02 SHORTNESS OF BREATH 12/09/2015 NAM GASPAR FAN MAIL EDITOR Ot R60.9 EDEMA, UNSPECIFIED 12/09/2015 JESSICA ALFORD FAC, AUGIE ELI CCDS Ot R06.02 SHORTNESS OF BREATH 12/09/2015 KETAN DUARTE DAY CARE HOME MOTHER Ot G47.9 SLEEP DISORDER, UNSPECIFIED 12/09/2015 KETAN DUARTE DAY CARE HOME MOTHER Ot J44.9 CHRONIC OBSTRUCTIVE PULMONARY DISEASE, U 12/09/2015 KETAN DUARTE DAY CARE HOME MOTHER Ot R05 COUGH 12/09/2015 KETAN DUARTE DAY CARE HOME MOTHER Ot R06.2 WHEEZING 12/09/2015 KETAN DUARTE DAY CARE HOME MOTHER Ot F17.201 NICOTINE DEPENDENCE, UNSPECIFIED, IN REM 12/09/2015 KETAN DUARTE DAY CARE HOME MOTHER Ot J44.9 CHRONIC OBSTRUCTIVE PULMONARY DISEASE, U 12/09/2015 KETAN DUARTE DAY CARE HOME MOTHER Ot R05 COUGH 12/09/2015 KETAN DUARTE DAY CARE HOME MOTHER Ot R06.2 WHEEZING 12/09/2015 PALOMO SALAZAR APRN Ot 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 12/09/2015 PALOMO SALAZAR APRN Ot J44 .9 CHRONIC OBSTRUCTIVE PULMONARY DISEASE, U 12/09/2015 PALOMO SALAZAR DAY CARE HOME MOTHER Ot L02.611 CUTANEOUS ABSCESS OF RIGHT FOOT 12/09/2015 PALOMO SALAZAR DAY CARE HOME MOTHER Ot R29 .6 REPEATED FALLS 12/09/2015 PALOMO SALAZAR DAY CARE HOME MOTHER Ot Z87.891 PERSONAL HISTORY OF NICOTINE DEPENDENCE 12/11/2015 PALOMO SALAZAR APRN Ot 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 12/11/2015 PALOMO SALAZAR APRN Ot J44 .9 CHRONIC OBSTRUCTIVE PULMONARY DISEASE, U 12/11/2015 PALOMO SALAZAR APRN Ot L02.611 CUTANEOUS ABSCESS OF RIGHT FOOT 12/11/2015 PALOMO SALAZAR DAY CARE HOME MOTHER Ot R29 .6 REPEATED FALLS 12/11/2015 PALOMO SALAZAR DAY CARE HOME MOTHER Ot Z87.891 PERSONAL HISTORY OF NICOTINE DEPENDENCE 12/13/2015 NAM GASPAR FAN MAIL EDITOR Ot R06.02 SHORTNESS OF BREATH 12/13/2015 NAM GASPAR FAN MAIL EDITOR Ot R60.9 EDEMA, UNSPECIFIED 12/17/2015 CECI ALFORD, [...] FOR THERAPEUTIC DRUG MONITORIN 12/17/2015 MARJORIE EDUARDO FAN MAIL EDITOR Ot 305.1 TOBACCO USE DISORDER 12/17/2015 MARJORIE EDUARDO FAN MAIL EDITOR Ot 427.0 PAROX ATRIAL TACHYCARDIA 12/17/2015 MARJORIE EDUARDO FAN MAIL EDITOR Ot 443.9 PERIPH VASCULAR DIS NOS 12/17/2015 MARJORIE EDUARDO FAN MAIL EDITOR Ot 4 96 CHR AIRWAY OBSTRUCT NEC 12/17/2015 DAPHNE YUSUF FAN MAIL EDITOR Ot I73.9 PERIPHERAL VASCULAR DISEASE, UNSPECIFIED 12/17/2015 NAM GASPAR FAN MAIL EDITOR Ot R06.02 SHORTNESS OF BREATH 12/17/2015 NAM GASPAR FAN MAIL EDITOR Ot R60.9 EDEMA, UNSPECIFIED 12/17/2015 AUGIE FONG MD, FACC, FACP CCDS Ot R06.02 SHORTNESS OF BREATH 12/17/2015 KETAN DUARTE APRN Ot G47.9 SLEEP DISORDER, UNSPECIFIED 12/17/2015 KETAN DUARTE APRN Ot J44.9 CHRONIC OBSTRUCTIVE PULMONARY DISEASE, U 12/17/2015 KETAN DUARTE APRN Ot R05 COUGH 12/17/2015 GERALDMARYCHUY ELLISONINE Anmol DAY CARE HOME MOTHER Ot R06.2 WHEEZING 12/17/2015 GERALDMARYCHUY ELLISONINE Anmol DAY CARE HOME MOTHER Ot F17.201 NICOTINE DEPENDENCE, UNSPECIFIED, IN REM 12/17/2015 MARYCHUY DUARTEINE Anmol DAY CARE HOME MOTHER Ot J44.9 CHRONIC OBSTRUCTIVE PULMONARY DISEASE, U 12/17/2015 GERALDMARYCHUY ELLISONINE E DAY CARE HOME MOTHER Ot R05 COUGH 12/17/2015 GERALDMARYCHUY ELLISONINE Anmol DAY CARE HOME MOTHER Ot R06.2 WHEEZING 12/19/2015 JESSICA ALFORD FAC, ALI [facility] CCDS Ot R06.02 SHORTNESS OF BREATH 12/19/2015 KETAN DUARTE DAY CARE HOME MOTHER Ot G47.9 SLEEP DISORDER, UNSPECIFIED 12/19/2015 KETAN DUARTE DAY CARE HOME MOTHER Ot J44.9 CHRONIC OBSTRUCTIVE PULMONARY DISEASE, U 12/19/2015 KETAN DUARTE DAY CARE HOME MOTHER Ot R05 COUGH 12/19/2015 KETAN DUARTE DAY CARE HOME MOTHER Ot R06.2 WHEEZING 12/19/2015 KETAN DUARTE DAY CARE HOME MOTHER Ot F17.201 NICOTINE DEPENDENCE, UNSPECIFIED, IN REM 12/19/2015 KETAN DUARTE DAY CARE HOME MOTHER Ot J44.9 CHRONIC OBSTRUCTIVE PULMONARY DISEASE, U 12/19/2015 KETAN DUARTE DAY CARE HOME MOTHER Ot R05 COUGH 12/19/2015 KETAN DUARTE DAY CARE HOME MOTHER Ot R06.2 WHEEZING 12/19/2015 LULÚ MCKEON DO Ot F41. 9 ANXIETY DISORDER, UNSPECIFIED 12/19/2015 LULÚ MCKEON DO Ot J44. 9 CHRONIC OBSTRUCTIVE PULMONARY DISEASE, U 12/19/2015 LULÚ MCKEON DO Ot R06. 02 SHORTNESS OF BREATH 12/19/2015 LULÚ MCKEON DO Ot Z72. 0 TOBACCO USE 12/24/2015 JESSICA ALFORD FAC, ALI [facility] CCDS Ot R06.02 SHORTNESS OF BREATH 12/25/2015 KETAN DUARTE DAY CARE HOME MOTHER Ot G47.9 SLEEP DISORDER, UNSPECIFIED 12/25/2015 KETAN DUARTE DAY CARE HOME MOTHER Ot J44.9 CHRONIC OBSTRUCTIVE PULMONARY DISEASE, U 12/25/2015 KETAN DUARTE DAY CARE HOME MOTHER Ot R05 COUGH 12/25/2015 MARYCHUY DUARTEINE Anmol DAY CARE HOME MOTHER Ot R06.2 WHEEZING 12/25/2015 KETAN DUARTE DAY CARE HOME MOTHER Ot F17.201 NICOTINE DEPENDENCE, UNSPECIFIED, IN REM 12/25/2015 KETAN DUARTE APRN Ot J44.9 CHRONIC OBSTRUCTIVE PULMONARY DISEASE, U 12/25/2015 KETAN DUARTE [employer] C[employer] MOTHER Ot R05 COUGH 12/25/2015 KETAN DUARTE DAY C[employer] HOME MOTHER Ot R06.2 WHEEZING 01/08/2016 LULÚ MCKEON DO [...] DUODENAL ULCER, UNSP ACUTE OR CHRONIC 01/31/2016 GRETEL TOTH MD Ot K29.70 GASTRITIS, UNSPECIFIED, [...] IRON DEFICIENCY ANEMIA, UNSPECIFIED 03/24/2016 JANEY ALFORD, GERTEL Brannon Ot Z01.818 ENCOUNTER [...] FOR THERAPEUTIC DRUG MONITORIN 03/27/2016 MARJORIE EDUARDO FAN MAIL EDITOR Ot 305.1 TOBACCO USE DISORDER 03/27/2016 MARJORIE EDUARDO FAN MAIL EDITOR Ot 427.0 PAROX ATRIAL TACHYCARDIA 03/27/2016 MARJORIE EDUARDO FAN MAIL EDITOR Ot 443.9 PERIPH VASCULAR DIS NOS 03/27/2016 MARJORIE EDUARDO FAN MAIL EDITOR Ot 4 96 CHR AIRWAY OBSTRUCT NEC 03/27/2016 DAPHNE YUSUF FAN MAIL EDITOR Ot I73.9 PERIPHERAL VASCULAR DISEASE, UNSPECIFIED 03/27/2016 NAM GASPAR FAN MAIL EDITOR Ot R06.02 SHORTNESS OF BREATH 03/27/2016 NAM GASPAR FAN MAIL EDITOR Ot R60.9 EDEMA, UNSPECIFIED 03/27/2016 JESSICA ALFORD FACC, AUGIE ELI CCDS Ot R06.02 SHORTNESS OF BREATH 03/27/2016 KETAN DUARTE DAY CARE HOME MOTHER Ot G47.9 SLEEP DISORDER, UNSPECIFIED 03/27/2016 KETAN DUARTE DAY CARE HOME MOTHER Ot J44.9 CHRONIC OBSTRUCTIVE PULMONARY DISEASE, U 03/27/2016 KETAN DUARTE DAY CARE HOME MOTHER Ot R05 COUGH 03/27/2016 KETAN DUARTE DAY CARE HOME MOTHER Ot R06.2 WHEEZING 03/27/2016 KETAN DUARTE DAY CARE HOME MOTHER Ot F17.201 NICOTINE DEPENDENCE, UNSPECIFIED, IN REM [...] HERNANDEZ 03/27/2016 MARLENA HURTADO Ot 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 03/27/2016 MARLENA HURTADO Ot I80.209 PHLBTS AND THOMBOPHLB OF UNSP DEEP VESSE 03/27/2016 MARLENA HURTADO Ot J44.9 CHRONIC OBSTRUCTIVE PULMONARY DISEASE, U 03/27/2016 MARLENA HURTADO Ot Z79.899 OTHER REHABILITATION THERAPY AIDE (CURRENT) DRUG THERAPY 03/27/2016 JANEY ALFORD, GRETEL [...] HERNANDEZ 04/03/2016 MARLENA HURTADO Ot 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 04/03/2016 MARLENA HURTADO Ot I80.209 PHLBTS AND THOMBOPHLB OF [facility] DEEP VESSE 04/03/2016 MARLENA HURTADO Ot J44.9 CHRONIC OBSTRUCTIVE PULMONARY DISEASE, U 04/03/2016 MARLENA HURTADO Ot Z79.899 OTHER USP (CURRENT) DRUG THERAPY 04/08/2016 JANEY ALFORD, GRETEL [...] HERNANDEZ 04/18/2016 MARLENA HURTADO Ot 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 04/18/2016 MARLENA HURTADO Ot I80.209 PHLBTS AND THOMBOPHLB OF [facility] DEEP VESSE 04/18/2016 MARLENA HURTADO Ot J44.9 CHRONIC OBSTRUCTIVE PULMONARY DISEASE, U 04/18/2016 MARLENA HURTADO Gloria Ot Z79.899 OTHER USP (CURRENT) DRUG THERAPY 04/21/2016 MARLENA HURTAOD Gloria Ot E11.59 TYPE 2 DIABETES MELLITUS WITH OTH CIRCUL 04/21/2016 MARLENA HURTADO Gloria Ot F17.210 NICOTINE DEPENDENCE, CIGARETTES, UNCOMPL 04/21/2016 GENESIS NEOTRI Gloria Ot F41.9 ANXIETY DISORDER, UNSPECIFIED 04/21/2016 MARLENA HURTADO Gloria Ot I47.1 SUPRAVENTRICULAR TACHYCARDIA 04/21/2016 GENESISMARLENA CRUZ Gloria Ot I65.23 OCCLUSION AND STENOSIS OF BILATERAL HERNANDEZ 04/21/2016 GENESISNEOTRI Gloria Ot 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 04/21/2016 GENESISNEOTRI Gloria Ot I80.209 PHLBTS AND THOMBOPHLB OF [facility] DEEP VESSE 04/21/2016 GENESISMARLENA CRUZ Gloria Ot J44.9 CHRONIC OBSTRUCTIVE PULMONARY DISEASE, U 04/21/2016 MARLENA HURTADO Ot Z79.899 OTHER REHABILITATION THERAPY AIDE (CURRENT) DRUG THERAPY 04/24/2016 MITZI ALFORD, JAMES [...] HERNANDEZ 04/29/2016 MARLENA HURTADO Ot 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 04/29/2016 MARLENA HURTADO Ot I80.209 PHLBTS AND THOMBOPHLB OF UNSP DEEP VESSE 04/29/2016 MARLENA HURTADO Ot J44.9 CHRONIC OBSTRUCTIVE PULMONARY DISEASE, U 04/29/2016 MARLENA HURTADO Ot Z79.899 OTHER REHABILITATION THERAPY AIDE (CURRENT) DRUG THERAPY 05/02/2016 JANEY ALFORD, GRETEL Brannon Ot D50.9 IRON DEFICIENCY ANEMIA, UNSPECIFIED 05/05/2016 JESSICA ALFORD FACC, ALI FACP CCDS Ot D63.8 ANEMIA IN OTHER CHRONIC DISEASES CLASSIF 05/05/2016 JESSICA GUALLPAC, ALI FACP CCDS Ot I47.1 SUPRAVENTRICULAR TACHYCARDIA 05/05/2016 JESSICA GUALLPAC, ALI FACP CCDS Ot 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 05/05/2016 JESSICA [...] FACC, ALI FACP CCDS Ot 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 05/07/2016 JESSICA [...] MAURO SHI MD Ot I70.209 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 05/14/2016 MAURO SHI MD, [...] 3 ENCOUNTER FOR THERAPEUTIC DRUG MONITORIN 05/20/2016 UJNIOR KWOK MD Ot V58.6 1 ANTICOAGULANTS,LT,CURRENT USE 05/20/2016 JUNIOR KWOK MD Ot V58.8 3 ENCOUNTER FOR THERAPEUTIC DRUG MONITORIN 05/20/2016 MARJORIE EDUARDO FAN MAIL EDITOR Ot 305.1 TOBACCO USE DISORDER 05/20/2016 MARJORIE EDUARDO FAN MAIL EDITOR Ot 427.0 PAROX ATRIAL TACHYCARDIA 05/20/2016 MARJORIE EDUARDO FAN MAIL EDITOR Ot 443.9 PERIPH VASCULAR DIS NOS 05/20/2016 MARJORIE EDUARDO FAN MAIL EDITOR Ot 4 96 CHR AIRWAY OBSTRUCT NEC 05/20/2016 DAPHNE YUSUF FAN MAIL EDITOR Ot I73.9 PERIPHERAL VASCULAR DISEASE, UNSPECIFIED 05/20/2016 NAM GASPAR FAN MAIL EDITOR Ot R06.02 SHORTNESS OF BREATH 05/20/2016 NAM GASPAR FAN MAIL EDITOR Ot R60.9 EDEMA, UNSPECIFIED 05/20/2016 JESSICA ALFORD FACJude, AUGIE ELI CCDS Ot R06.02 SHORTNESS OF BREATH 05/20/2016 GERALD, KETAN E DAY CARE HOME MOTHER Ot G47.9 SLEEP DISORDER, UNSPECIFIED 05/20/2016 KETAN DUARTE [employer] CARE HOME MOTHER Ot J44.9 CHRONIC OBSTRUCTIVE PULMONARY DISEASE, U 05/20/2016 KETAN DUARTE DAY CARE HOME MOTHER Ot R05 COUGH 05/20/2016 KETAN DUARTE DAY CARE HOME MOTHER Ot R06.2 WHEEZING 05/20/2016 GERALD KETAN Corea DAY CARE HOME MOTHER Ot F17.201 NICOTINE DEPENDENCE, UNSPECIFIED, IN REM 05/20/2016 KETAN DUARTE DAY CARE HOME MOTHER Ot J44.9 CHRONIC OBSTRUCTIVE PULMONARY DISEASE, U 05/20/2016 GERALDKETAN DAY CARE HOME MOTHER Ot R05 COUGH 05/20/2016 KETAN DUARTE APRN [...] HERNANDEZ 05/20/2016 MARLENA HURTADO Ot 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 05/20/2016 MARLENA HURTADO Ot I80.209 PHLBTS AND THOMBOPHLB OF UNSP DEEP VESSE 05/20/2016 MARLENA HURTADO Gloria Ot J44.9 CHRONIC OBSTRUCTIVE PULMONARY DISEASE, U 05/20/2016 MARLENA HURTADO Gloria Ot Z79.899 OTHER USP (CURRENT) DRUG THERAPY 05/20/2016 JESSICA ALFORD FACC, ALI FACP CCDS Ot D63.8 ANEMIA IN OTHER CHRONIC DISEASES CLASSIF 05/20/2016 JESSICA ALFORD FACC, ALI FACP CCDS Ot I47.1 SUPRAVENTRICULAR TACHYCARDIA 05/20/2016 JESSICA ALFORD FACC, ALI FACP CCDS Ot 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 05/20/2016 JESSICA [...] FACC, ALI FACP CCDS Ot 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 05/21/2016 JESSICA ALFORD FACC, ALI FACP CCDS Ot M06.9 RHEUMATOID ARTHRITIS, UNSPECIFIED 05/21/2016 JESSICA ALFORD FACC, ALI FACP CCDS Ot M79.89 OTHER SPECIFIED SOFT TISSUE DISORDERS 05/21/2016 JESSICA LAFORD FACC, ALI FACP CCDS Ot R07.89 OTHER CHEST PAIN 05/26/2016 JESSICA ALFORD FACC, ALI FACP CCDS Ot D63.8 ANEMIA IN OTHER CHRONIC DISEASES CLASSIF 05/26/2016 JESSICA ALFORD FACC, ALI FACP CCDS Ot I47.1 SUPRAVENTRICULAR TACHYCARDIA 05/26/2016 JESSICA GUALLPAC, ALI FACP CCDS Ot 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 05/26/2016 JESSICA [...] FAC, ALI FACP CCDS Ot 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 2016 JESSICA [...] HERNANDEZ 06/11/2016 MARLENA HURTADO Ot 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 06/11/2016 MARLENA HURTADO Ot I80.209 PHLBTS AND [facility]HLB [facility] 06/11/2016 MARLENA HURTADO Ot J44.9 CHRONIC OBSTRUCTIVE PULMONARY DISEASE, U 06/11/2016 MARLENA HURTADO Ot Z79.899 OTHER USP (CURRENT) DRUG THERAPY 06/11/2016 JUNIOR ORNELAS MD [...] THERAPEUTIC DRUG MONITORIN 06/11/2016 MARJORIE EDUARDO L FAN MAIL EDITOR Ot 305.1 TOBACCO USE DISORDER 06/11/2016 TARA EDUARDOHER L FAN MAIL EDITOR Ot 427.0 PAROX ATRIAL TACHYCARDIA 06/11/2016 ALESHA MARJORIE L FAN MAIL EDITOR Ot 443.9 PERIPH VASCULAR DIS NOS 06/11/2016 TARA EDUARDOHER L FAN MAIL EDITOR Ot 4 96 CHR AIRWAY OBSTRUCT NEC 06/11/2016 DAPHNE YUSUF FAN MAIL EDITOR Ot I73.9 PERIPHERAL VASCULAR DISEASE, UNSPECIFIED 06/11/2016 NAM GASPAR FAN MAIL EDITOR Ot R06.02 SHORTNESS OF BREATH 06/11/2016 NAM GASPAR FAN MAIL EDITOR Ot R60.9 EDEMA, UNSPECIFIED 06/11/2016 JESSICA ALFORD FACC, AUGIE ELI CCDS Ot R06.02 SHORTNESS OF BREATH 06/11/2016 KETAN DUARTE DAY CARE HOME MOTHER Ot G47.9 SLEEP DISORDER, UNSPECIFIED 06/11/2016 KETAN DUARTE DAY CARE HOME MOTHER Ot J44.9 CHRONIC OBSTRUCTIVE PULMONARY DISEASE, U 06/11/2016 KETAN DUARTE DAY CARE HOME MOTHER Ot R05 COUGH 06/11/2016 KETAN DUARTE DAY CARE HOME MOTHER Ot R06.2 WHEEZING 06/11/2016 KETAN DUARTE DAY CARE HOME MOTHER Ot F17.201 NICOTINE DEPENDENCE, UNSPECIFIED, IN REM 06/11/2016 KETAN DUARTE DAY CARE HOME MOTHER Ot J44.9 CHRONIC OBSTRUCTIVE PULMONARY DISEASE, U 06/11/2016 KETAN DUARTE DAY CARE HOME MOTHER Ot R05 COUGH 06/11/2016 KETAN DUARTE DAY CARE HOME MOTHER Ot R06.2 WHEEZING 06/11/2016 LULÚ MCKEON DO [...] DEFICIENCY ANEMIA, UNSPECIFIED 06/11/2016 JANEY ALFORD, GRETEL Barnnon Ot Z01.818 ENCOUNTER FOR OTHER PREPROCEDURAL EXAMIN 06/11/2016 MARLENA HURTADO Ot E11.59 TYPE 2 DIABETES MELLITUS WITH OTH CIRCUL 06/11/2016 MARLENA HURTADO Ot F17.210 NICOTINE DEPENDENCE, CIGARETTES, UNCOMPL 06/11/2016 MARLENA HURTADO Ot F41.9 ANXIETY DISORDER, UNSPECIFIED 06/11/2016 MARLENA HURTADO Ot I47.1 SUPRAVENTRICULAR TACHYCARDIA 06/11/2016 MARLENA HURTADO Ot I65.23 OCCLUSION AND STENOSIS OF BILATERAL HERNANDEZ 06/11/2016 MARLENA HURTADO Ot 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 06/11/2016 MARLENA HURTADO Ot I80.209 PHLBTS AND THOMBOPHLB OF UNSP DEEP VESSE 06/11/2016 MARLENA HURTADO Ot J44.9 CHRONIC OBSTRUCTIVE PULMONARY DISEASE, U 06/11/2016 MARLENA HURTADO Ot Z79.899 OTHER USP (CURRENT) DRUG THERAPY 06/11/2016 JESSICA ALFORD FACC, ALI FACP CCDS Ot D63.8 ANEMIA IN OTHER CHRONIC DISEASES CLASSIF 06/11/2016 JESSICA ALFORD FACC, ALI FACP CCDS Ot I47.1 SUPRAVENTRICULAR TACHYCARDIA 06/11/2016 JESSICA ALFORD FACC, ALI FACP CCDS Ot 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 06/11/2016 JESSICA [...] FACC, ALI FACP CCDS Ot 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 06/11/2016 JESSICA [...] FACC, ALI FACP CCDS Ot 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 06/11/2016 JESSICA [...] GUALLPA, ALI FACP CCDS Ot 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 06/19/2016 JESSICA GUALLPA, ALI FACP CCDS Ot M06.9 RHEUMATOID ARTHRITIS, UNSPECIFIED 06/19/2016 JESSICA ALFORD [facility], ALI FACP CCDS Ot M79.89 [...] HERNANDEZ 07/16/2016 MARLENA HURTADO Ot 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 07/16/2016 MARLENA HURTADO Ot I80.209 PHLBTS AND THOMBOPHLB OF [facility] DEEP VESSE 07/16/2016 MARLENA HURTADO Ot J44.9 CHRONIC OBSTRUCTIVE PULMONARY DISEASE, U 07/16/2016 MARLENA HURTADO Ot Z79.899 OTHER USP (CURRENT) DRUG THERAPY 07/25/2016 JAMES CARTAGENA MD [...] HERNANDEZ 07/27/2016 MARLENA HURTADO Ot 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 07/27/2016 MARLENA HURTADO Ot I80.209 PHLBTS AND THOMBOPHLB OF UNSP DEEP VESSE 07/27/2016 MARLENA HURTADO Ot J44.9 CHRONIC OBSTRUCTIVE PULMONARY DISEASE, U 07/27/2016 MARLENA HURTADO Ot Z79.899 OTHER USP (CURRENT) DRUG THERAPY 07/28/2016 MARLENA HURTADO Ot [...] 07/28/2016 MARLENA HURTADO Gloria Ot 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 07/28/2016 MARLENA HURTADO Gloria Ot I80.209 PHLBTS AND THOMBOPHLB OF UNSP DEEP VESSE 07/28/2016 MARLENA HURTADO Gloria Ot J44.9 CHRONIC OBSTRUCTIVE PULMONARY DISEASE, U 07/28/2016 MARLENA HURTADO Ot Z79.899 OTHER REHABILITATION THERAPY AIDE (CURRENT) DRUG THERAPY 08/25/2016 JANEY ALFORD, GRETEL [...] FOR THERAPEUTIC DRUG MONITORIN 12/17/2016 MARJORIE EDUARDO FAN MAIL EDITOR Ot 305.1 TOBACCO USE DISORDER 12/17/2016 MARJORIE EDUARDO L FAN MAIL EDITOR Ot 427.0 PAROX ATRIAL TACHYCARDIA 12/17/2016 TARA EDUARDOHER L FAN MAIL EDITOR Ot 443.9 PERIPH VASCULAR DIS NOS 12/17/2016 MARJORIE EDUARDO FAN MAIL EDITOR Ot 4 96 CHR AIRWAY OBSTRUCT NEC 12/17/2016 DAPHNE YUSUF FAN MAIL EDITOR Ot I73.9 PERIPHERAL VASCULAR DISEASE, UNSPECIFIED 12/17/2016 NAM GASPAR FAN MAIL EDITOR Ot R06.02 SHORTNESS OF BREATH 12/17/2016 NAM GASPAR FAN MAIL EDITOR Ot R60.9 EDEMA, UNSPECIFIED 12/17/2016 JESSICA ALFORD FAC, AUGIE ELI CCDS Ot R06.02 SHORTNESS OF BREATH 12/17/2016 KETAN DUARTE DAY CARE HOME MOTHER Ot G47.9 SLEEP DISORDER, UNSPECIFIED 12/17/2016 KETAN DUARTE DAY CARE HOME MOTHER Ot J44.9 CHRONIC OBSTRUCTIVE PULMONARY DISEASE, U 12/17/2016 KETAN DUARTE DAY CARE HOME MOTHER Ot R05 COUGH 12/17/2016 KETAN DUARTE DAY CARE HOME MOTHER Ot R06.2 WHEEZING 12/17/2016 KETAN DUARTE DAY CARE HOME MOTHER Ot F17.201 NICOTINE DEPENDENCE, UNSPECIFIED, IN REM 12/17/2016 KETAN DUARTE DAY CARE HOME MOTHER Ot J44.9 CHRONIC OBSTRUCTIVE PULMONARY DISEASE, U 12/17/2016 KETAN DUARTE DAY CARE HOME MOTHER Ot R05 COUGH 12/17/2016 KETAN DUARTE DAY CARE HOME MOTHER Ot R06.2 WHEEZING 12/17/2016 LULÚ MCKEON DO [...] FACC, ALI FACP CCDS Ot 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 12/17/2016 JESSICA [...] FACC, ALI FACP CCDS Ot 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 12/17/2016 JESSICA [...] BILATERAL HERNANDEZ 12/17/2016 GENESISMARLENA Ot 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 12/17/2016 GENESISMARLENA Ot I80.209 PHLBTS AND THOMBOPHLB OF UNSP DEEP VESSE 12/17/2016 MARLENA HURTADO Ot J44.9 CHRONIC OBSTRUCTIVE PULMONARY DISEASE, U 12/17/2016 MARLENA HURTADO Ot Z79.899 OTHER REHABILITATION THERAPY AIDE (CURRENT) DRUG THERAPY 12/17/2016 JANEY ALFORD, GRETEL [...] BILATERAL HERNANDEZ 12/17/2016 GENESISMARLENA Ot 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 12/17/2016 MARLENA HURTADO Ot I80.209 PHLBTS AND THOMBOPHLB OF UNSP DEEP VESSE 12/17/2016 MARLENA HURTADO Ot J44.9 CHRONIC OBSTRUCTIVE PULMONARY DISEASE, U 12/17/2016 MARLENA HURTADO Ot Z79.899 OTHER REHABILITATION THERAPY AIDE (CURRENT) DRUG THERAPY 12/17/2016 SANTY ALFORD, SABINO [...] FOR SCREENING FOR OTHER BACTER 12/18/2016 KETAN DUARTE APRN Ot R09.02 HYPOXEMIA 12/18/2016 KETAN DUARTE [...] SABINO MADERA MD, Ot I70.209 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 12/27/2016 SABINO MADERA MD, [...] SABINO MADERA MD, Ot I70.209 UNSP ATHSCL [place] ARTERIES OF [place] 12/29/2016 SABINO MADERA MD, Ot J43.9 EMPHYSEMA, [...] Ot J43. 8 OTHER EMPHYSEMA 01/29/2017 MIKE IEYR LULÚ M Ot R06. 02 SHORTNESS OF [...] JULIA JIMENEZ DO Ot I70.203 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 04/11/2017 JULIA JIMENEZ DO [...] DO Ot F41.9 ANXIETY DISORDER, UNSPECIFIED 04/11/2017 [facility] DO Ot G47.00 INSOMNIA, UNSPECIFIED 04/11/2017 JULIA JIMENEZ DO Ot H93.13 TINNITUS, BILATERAL 04/11/2017 JULIA JIMENEZ DO Ot I10 ESSENTIAL (PRIMARY) HYPERTENSION 04/11/2017 JULIA JIMENEZ DO Ot I69.322 DYSARTHRIA FOLLOWING CEREBRAL INFARCTION 04/11/2017 JULIA JIMENEZ DO Ot I69.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 FOLLOWING CEREBRAL INFRC AFF RI 04/11/2017 JULIA JIMENEZ DO Ot I69.391 DYSPHAGIA FOLLOWING CEREBRAL INFARCTION 04/11/2017 JULIA JIMENEZ DO Ot I70.203 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 04/11/2017 JULIA JIMENEZ DO, [...] JULIA JIMENEZ DO Ot I70.203 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 04/11/2017 JULIA JIMENEZ DO Ot J18.9 PNEUMONIA, UNSPECIFIED ORGANISM 04/11/2017 JULIA JIMENEZ DO Ot J30.2 OTHER SEASONAL ALLERGIC RHINITIS 04/11/2017 JULIA JIMENEZ DO Ot J44.0 CHRONIC OBSTRUCTIVE PULMON DISEASE W ACU 04/11/2017 JULIA JIMENEZ DO Ot K21.9 GASTRO-ESOPHAGEAL REFLUX DISEASE WITHOUT 04/11/2017 JULIA JIMENEZ DO Ot K75.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) 04/11/2017 JULIA JIMENEZ DO Ot M06.9 RHEUMATOID ARTHRITIS, UNSPECIFIED 04/11/2017 JLUIA JIMENEZ DO Ot M19.91 PRIMARY OSTEOARTHRITIS, UNSPECIFIED [...] FOLLOWING CEREBRAL INFRC AFF [place] 04/12/2017 JULIA JIMENEZ DO Ot I69.391 DYSPHAGIA FOLLOWING CEREBRAL INFARCTION 04/12/2017 JULIA JIMENEZ DO, Ot I70.203 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 04/12/2017 JULIA JIMENEZ DO, [...] JULIA JIMENEZ DO, Ot I70.203 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 04/13/2017 JULIA JIMENEZ DO, [...] JULIA JIMENEZ DO, Ot I70.203 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 04/13/2017 JULIA JIMENEZ DO, [...] FOR THERAPEUTIC DRUG MONITORIN 06/15/2017 MARJORIE EDUARDO FAN MAIL EDITOR Ot 305.1 TOBACCO USE DISORDER 06/15/2017 MARJORIE EDUARDO FAN MAIL EDITOR Ot 427.0 PAROX ATRIAL TACHYCARDIA 06/15/2017 MARJORIE EDUARDO FAN MAIL EDITOR Ot 443.9 PERIPH VASCULAR DIS NOS 06/15/2017 MARJORIE EDUARDO L FAN MAIL EDITOR Ot 4 96 CHR AIRWAY OBSTRUCT NEC 06/15/2017 DAPHNE YUSUF FAN MAIL EDITOR Ot I73.9 PERIPHERAL VASCULAR DISEASE, UNSPECIFIED 06/15/2017 NAM GASPAR FAN MAIL EDITOR Ot R06.02 SHORTNESS OF BREATH 06/15/2017 NAM GASPAR FAN MAIL EDITOR Ot R60.9 EDEMA, UNSPECIFIED 06/15/2017 JESSICA ALFORD FACAUGIE FACP CCDS Ot R06.02 SHORTNESS OF BREATH 06/15/2017 KETAN DUARTE DAY CARE HOME MOTHER Ot G47.9 SLEEP DISORDER, UNSPECIFIED 06/15/2017 KETAN DUARTE DAY CARE HOME MOTHER Ot J44.9 CHRONIC OBSTRUCTIVE PULMONARY DISEASE, U 06/15/2017 KETAN DUARTE DAY CARE HOME MOTHER Ot R05 COUGH 06/15/2017 KETAN DUARTE DAY CARE HOME MOTHER Ot R06.2 WHEEZING 06/15/2017 KETAN DUARTE DAY CARE HOME MOTHER Ot F17.201 NICOTINE DEPENDENCE, UNSPECIFIED, IN REM 06/15/2017 KETAN DUARTE DAY CARE HOME MOTHER Ot J44.9 CHRONIC OBSTRUCTIVE PULMONARY DISEASE, U [...] FACC, ALI FACP CCDS Ot 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 06/15/2017 JESSICA [...] FACC, ALI FACP CCDS Ot 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 06/15/2017 JESSICA ALFORD FACC, ALI FACP CCDS Ot M06.9 RHEUMATOID ARTHRITIS, UNSPECIFIED 06/15/2017 JESSICA ALFORD FACC, ALI FACP CCDS Ot M79.89 OTHER SPECIFIED SOFT TISSUE DISORDERS 06/15/2017 JESSICA ALFORD FAC, ALI [facility] CCDS Ot R07.89 OTHER CHEST PAIN [...] 06/15/2017 MARLENA HURTADO Gloria Ot 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 06/15/2017 MARLENA HURTADO Gloria Ot I80.209 PHLBTS AND THOMBOPHLB OF UNSP DEEP VESSE 06/15/2017 MARLENA HURTADO Gloria Ot J44.9 CHRONIC OBSTRUCTIVE PULMONARY DISEASE, U 06/15/2017 MARLENA HURTADO Gloria Ot Z79.899 OTHER REHABILITATION THERAPY AIDE (CURRENT) DRUG THERAPY 06/15/2017 JANEY ALFORD, GRETEL [...] FOR THERAPEUTIC DRUG MONITORIN 06/15/2017 MARJORIE EDUARDO FAN MAIL EDITOR Ot 305.1 TOBACCO USE DISORDER 06/15/2017 MARJORIE EDUARDO L FAN MAIL EDITOR Ot 427.0 PAROX ATRIAL TACHYCARDIA 06/15/2017 BAIKENNEDI MARJORIE L FAN MAIL EDITOR Ot 443.9 PERIPH VASCULAR DIS NOS 06/15/2017 MARJORIE EDUARDO L FAN MAIL EDITOR Ot 4 96 CHR AIRWAY OBSTRUCT NEC 06/15/2017 DAPHNE YUSUF FAN MAIL EDITOR Ot I73.9 PERIPHERAL VASCULAR DISEASE, UNSPECIFIED 06/15/2017 NAM GASPAR FAN MAIL EDITOR Ot R06.02 SHORTNESS OF BREATH 06/15/2017 NAM GASPAR FAN MAIL EDITOR Ot R60.9 EDEMA, UNSPECIFIED 06/15/2017 JESSICA ALFORD FAC, AUGIE ELI CCDS Ot R06.02 SHORTNESS OF BREATH 06/15/2017 KETAN DUARTE APRN Ot G47.9 SLEEP DISORDER, UNSPECIFIED 06/15/2017 KETAN DUARTE DAY CARE HOME MOTHER Ot J44.9 CHRONIC OBSTRUCTIVE PULMONARY DISEASE, U 06/15/2017 KETAN DUARTE DAY CARE HOME MOTHER Ot R05 COUGH 06/15/2017 KETAN DUARTE DAY CARE HOME MOTHER Ot R06.2 WHEEZING 06/15/2017 KETAN DUARTE DAY CARE HOME MOTHER Ot F17.201 NICOTINE DEPENDENCE, UNSPECIFIED, IN REM 06/15/2017 KETAN DUARTE DAY CARE HOME MOTHER Ot J44.9 CHRONIC OBSTRUCTIVE PULMONARY DISEASE, U 06/15/2017 KETAN DUARTE APRN Ot R05 COUGH 06/15/2017 KETAN DUARTE DAY CARE HOME MOTHER Ot R06.2 WHEEZING 06/15/2017 LULÚ MCKEON DO [...] ANEMIA IN OTHER CHRONIC DISEASES CLASSIF 06/15/2017 EJSSICA ALFORD FACC, ALI FACP CCDS Ot I47.1 SUPRAVENTRICULAR TACHYCARDIA 06/15/2017 JESSICA ALFORD FACC, ALI FACP CCDS Ot 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 06/15/2017 JESSICA [...] FACC, ALI FACP CCDS Ot 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 06/15/2017 JESSICA [...] 06/15/2017 GENESIS MARLENA Castro Ot 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 06/15/2017 MARLENA HURTADO Gloria Ot I80.209 PHLBTS AND THOMBOPHLB OF UNSP DEEP VESSE 06/15/2017 GENESIS MARLENA Castro Ot J44.9 CHRONIC OBSTRUCTIVE PULMONARY DISEASE, U 06/15/2017 MARLENA HURTADO Gloria Ot Z79.899 OTHER REHABILITATION THERAPY AIDE (CURRENT) DRUG THERAPY 06/15/2017 JANEY ALFORD, GRETEL [...] 305.1 TOBACCO USE DISORDER 07/24/2017 MARJORIE EDUARDO FAN MAIL EDITOR Ot 427.0 PAROX ATRIAL TACHYCARDIA 07/24/2017 MARJORIE EDUARDO FAN MAIL EDITOR Ot 443.9 PERIPH VASCULAR DIS NOS 07/24/2017 MARJORIE EDUARDO FAN MAIL EDITOR Ot 4 96 CHR AIRWAY OBSTRUCT NEC 07/24/2017 DAPHNE YUSUF FAN MAIL EDITOR Ot I73.9 PERIPHERAL VASCULAR DISEASE, UNSPECIFIED 07/24/2017 NAM GASPAR FAN MAIL EDITOR Ot R06.02 SHORTNESS OF BREATH 07/24/2017 NAM GASPAR FAN MAIL EDITOR Ot R60.9 EDEMA, UNSPECIFIED 07/24/2017 JESSICA ALFORD FAC, AUGIE ELI CCDS Ot R06.02 SHORTNESS OF BREATH 07/24/2017 KETAN DUARTE DAY CARE HOME MOTHER Ot G47.9 SLEEP DISORDER, UNSPECIFIED 07/24/2017 KETAN DUARTE DAY CARE HOME MOTHER Ot J44.9 CHRONIC OBSTRUCTIVE PULMONARY DISEASE, U 07/24/2017 KETAN DUARTE DAY CARE HOME MOTHER Ot R05 COUGH 07/24/2017 KETAN DUARTE DAY CARE HOME MOTHER Ot R06.2 WHEEZING 07/24/2017 KETAN DUARTE E DAY CARE HOME MOTHER Ot F17.201 NICOTINE DEPENDENCE, UNSPECIFIED, IN REM 07/24/2017 KETAN DUARTE DAY CARE HOME MOTHER Ot J44.9 CHRONIC OBSTRUCTIVE PULMONARY DISEASE, U 07/24/2017 KETAN DUARTE DAY CARE HOME MOTHER Ot R05 COUGH 07/24/2017 KETAN DUARTE DAY CARE HOME MOTHER Ot R06.2 WHEEZING 07/24/2017 LULÚ MCKEON DO [...] FACC, ALI FACP CCDS Ot 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 07/24/2017 JESSICA [...] FACC, ALI FACP CCDS Ot 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 07/24/2017 JESSICA ALFORD FACC, ALI FACP CCDS Ot M06.9 RHEUMATOID ARTHRITIS, UNSPECIFIED 07/24/2017 JSESICA ALFORD FACC, ALI FACP CCDS Ot M79.89 [...] HERNANDEZ 07/24/2017 MARLENA HURTADO Ot 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 07/24/2017 MARLENA HURTADO Ot I80.209 PHLBTS AND THOMBOPHLB OF UNSP DEEP VESSE 07/24/2017 MARLENA HURTADO Ot J44.9 CHRONIC OBSTRUCTIVE PULMONARY DISEASE, U 07/24/2017 GENESIS MARLENA Csatro Ot Z79.899 OTHER USP (CURRENT) DRUG THERAPY 07/24/2017 JANEY ALFORD, GRETEL Brannon Ot A04.7 ENTEROCOLITIS DUE TO CLOSTRIDIUM DIFFICI 07/24/2017 KETAN DUARTE DAY CARE HOME MOTHER Ot R09.02 HYPOXEMIA 07/24/2017 KETAN DUARTE DAY CARE HOME MOTHER Ot R91.1 SOLITARY PULMONARY NODULE 07/24/2017 KETAN DUARTE DAY CARE HOME MOTHER Ot Z72.0 TOBACCO USE 07/24/2017 LULÚ MCKEON [...] FOR THERAPEUTIC DRUG MONITORIN 10/12/2017 MARJORIE EDUARDO FAN MAIL EDITOR Ot 305.1 TOBACCO USE DISORDER 10/12/2017 MARJORIE EDUARDO FAN MAIL EDITOR Ot 427.0 PAROX ATRIAL TACHYCARDIA 10/12/2017 MARJORIE EDUARDO FAN MAIL EDITOR Ot 443.9 PERIPH VASCULAR DIS NOS 10/12/2017 MARJORIE EDUARDO FAN MAIL EDITOR Ot 4 96 CHR AIRWAY OBSTRUCT NEC 10/12/2017 DAPHNE YUSUF FAN MAIL EDITOR Ot I73.9 PERIPHERAL VASCULAR DISEASE, UNSPECIFIED 10/12/2017 GASPAR, NAM R FAN MAIL EDITOR Ot R06.02 SHORTNESS OF BREATH 10/12/2017 NAM GASPAR FAN MAIL EDITOR Ot R60.9 EDEMA, UNSPECIFIED 10/12/2017 JESSICA ALFORD FACJude, AUGIE FACP CCDS Ot R06.02 SHORTNESS OF BREATH 10/12/2017 GERALDMARYCHUY ELLISONINE E DAY CARE HOME MOTHER Ot G47.9 SLEEP DISORDER, UNSPECIFIED 10/12/2017 GERALDMARYCHUYKETAN E DAY CARE HOME MOTHER Ot J44.9 CHRONIC OBSTRUCTIVE PULMONARY DISEASE, U 10/12/2017 GERALD, KETAN E DAY CARE HOME MOTHER Ot R05 COUGH 10/12/2017 GERALD, KETAN E DAY CARE HOME MOTHER Ot R06.2 WHEEZING 10/12/2017 GERALD KETAN E DAY CARE HOME MOTHER Ot F17.201 NICOTINE DEPENDENCE, UNSPECIFIED, IN REM 10/12/2017 GERALDKETAN ELLISON DAY CARE HOME MOTHER Ot J44.9 CHRONIC OBSTRUCTIVE PULMONARY DISEASE, U 10/12/2017 GERALDMARYCHUY ELLISONINE E DAY CARE HOME MOTHER Ot R05 COUGH 10/12/2017 GERALDMARYCHUY ELLISONINE Anmol DAY CARE HOME MOTHER Ot R06.2 WHEEZING 10/12/2017 LULÚ MCKEON DO Ot F41. 9 ANXIETY DISORDER, UNSPECIFIED 10/12/2017 LULÚ MCKEON DO Ot J44. 9 CHRONIC OBSTRUCTIVE PULMONARY DISEASE, U 10/12/2017 LULÚ MCKEON DO Ot R06. 02 SHORTNESS OF BREATH 10/12/2017 LULÚ MCKEON DO Ot Z72. 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 10/12/2017 JESSICA ALFORD [facility], ALI FACP CCDS Ot M06.9 RHEUMATOID ARTHRITIS, UNSPECIFIED 10/12/2017 JESSICA ALFORD FAC, ALI FACP CCDS Ot M79.89 OTHER SPECIFIED SOFT TISSUE DISORDERS 10/12/2017 JESSICA ALFORD [facility], ALI FACP CCDS Ot R07.89 OTHER CHEST PAIN 10/12/2017 MARLENA HURTADO Ot E11.59 TYPE 2 DIABETES MELLITUS WITH OTH CIRCUL 10/12/2017 MARLENA HURTADO Ot F17.210 NICOTINE DEPENDENCE, CIGARETTES, UNCOMPL 10/12/2017 MARLENA HURTADO Ot F41.9 ANXIETY DISORDER, UNSPECIFIED 10/12/2017 MARLENA HURTADO Ot I47.1 SUPRAVENTRICULAR TACHYCARDIA 10/12/2017 MARLENA HURTADO Ot I65.23 OCCLUSION AND STENOSIS OF BILATERAL HERNANDEZ 10/12/2017 MARLENA HURTADO Ot 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 10/12/2017 MARLENA HURTADO Ot I80.209 PHLBTS AND THOMBOPHLB OF UNSP DEEP VESSE 10/12/2017 MARLENA HURTADO Ot J44.9 CHRONIC OBSTRUCTIVE PULMONARY DISEASE, U 10/12/2017 MARLENA HURTADO Ot Z79.899 OTHER REHABILITATION THERAPY AIDE (CURRENT) DRUG THERAPY 10/12/2017 JANEY ALFORD, GRETEL Brannon Ot A04.7 ENTEROCOLITIS DUE TO CLOSTRIDIUM DIFFICI 10/12/2017 KETAN DUARTE APRN Ot R09.02 HYPOXEMIA 10/12/2017 GERALD, KETAN E [employer] HOME MOTHER Ot R91.1 SOLITARY PULMONARY NODULE 10/12/2017 KETAN DUARTE [employer] C[employer] MOTHER Ot Z72.0 TOBACCO USE 10/12/2017 LULÚ MCKEON [...] FOR THERAPEUTIC DRUG MONITORIN 10/12/2017 MARJORIE EDUARDO FAN MAIL EDITOR Ot 305.1 TOBACCO USE DISORDER 10/12/2017 MARJORIE EDUARDO FAN MAIL EDITOR Ot 427.0 PAROX ATRIAL TACHYCARDIA 10/12/2017 MARJORIE EDUARDO FAN MAIL EDITOR Ot 443.9 PERIPH VASCULAR DIS NOS 10/12/2017 MARJORIE EDUARDO FAN MAIL EDITOR Ot 4 96 CHR AIRWAY OBSTRUCT NEC 10/12/2017 DAPHNE YUSUF FAN MAIL EDITOR Ot I73.9 PERIPHERAL VASCULAR DISEASE, UNSPECIFIED 10/12/2017 NAM GASPAR F[employer] MAIL EDITOR Ot R06.02 SHORTNESS OF BREATH 10/12/2017 NAM GASPAR F[employer] MAIL EDITOR Ot R60.9 EDEMA, UNSPECIFIED 10/12/2017 JESSICA ALFORD FACAUGIE Roque FACP CCDS Ot R06.02 SHORTNESS OF BREATH 10/12/2017 KETAN DUARTE [employer] C[employer] MOTHER Ot G47.9 SLEEP DISORDER, UNSPECIFIED 10/12/2017 KETAN DUARTE [employer] MOTHER Ot J44.9 CHRONIC OBSTRUCTIVE PULMONARY DISEASE, U 10/12/2017 MARYCHUY DUARTEINE E DAY CARE HOME MOTHER Ot R05 COUGH 10/12/2017 GERALDMARYCHUY ELLISONINE Anmol DAY CARE HOME MOTHER Ot R06.2 WHEEZING 10/12/2017 GERALD, KETAN Anmol DAY CARE HOME MOTHER Ot F17.201 NICOTINE DEPENDENCE, UNSPECIFIED, IN REM 10/12/2017 GERALD KETAN Anmol DAY CARE HOME MOTHER Ot J44.9 CHRONIC OBSTRUCTIVE PULMONARY DISEASE, U 10/12/2017 GERALD, KETAN Corea DAY CARE HOME MOTHER Ot R05 COUGH 10/12/2017 GERALD KETAN [employer] DAY CARE HOME MOTHER Ot R06.2 WHEEZING 10/12/2017 LULÚ MCKEON DO [...] FACC, AUGIE FACP CCDS Ot 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 10/12/2017 JESSICA [...] FAC, ALI FACP CCDS Ot 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 10/12/2017 JESSICA [...] HERNANDEZ 10/12/2017 MARLENA HURTADO Ot 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 10/12/2017 MARLENA HURTADO Ot I80.209 PHLBTS AND [facility]HL[facility] 10/12/2017 MARLENA HURTADO Ot J44.9 CHRONIC OBSTRUCTIVE PULMONARY DISEASE, U 10/12/2017 MARLENA HURTADO Ot Z79.899 OTHER USP (CURRENT) DRUG THERAPY 10/12/2017 JANEY ALFORD, GRETEL [...] FOR THERAPEUTIC DRUG MONITORIN 10/13/2017 MARJORIE EDUARDO FAN MAIL EDITOR Ot 305.1 TOBACCO USE DISORDER 10/13/2017 MARJORIE EDUARDO FAN MAIL EDITOR Ot 427.0 PAROX ATRIAL TACHYCARDIA 10/13/2017 MARJORIE EDUARDO FAN MAIL EDITOR Ot 443.9 PERIPH VASCULAR DIS NOS 10/13/2017 MARJORIE EDUARDO FAN MAIL EDITOR Ot 4 96 CHR AIRWAY OBSTRUCT NEC 10/13/2017 DAPHNE YUSUF FAN MAIL EDITOR Ot I73.9 PERIPHERAL VASCULAR DISEASE, UNSPECIFIED 10/13/2017 NAM GASPAR F[employer] MAIL EDITOR Ot R06.02 SHORTNESS OF BREATH 10/13/2017 NAM GASPAR F[employer] MAIL EDITOR Ot R60.9 EDEMA, UNSPECIFIED 10/13/2017 JESSICA ALFORD FACC, AUGIE ELI CCDS Ot R06.02 SHORTNESS OF BREATH 10/13/2017 KETAN DUARTE [employer] C[employer] MOTHER Ot G47.9 SLEEP DISORDER, UNSPECIFIED 10/13/2017 KETAN DUARTE [employer] C[employer] MOTHER Ot J44.9 CHRONIC OBSTRUCTIVE PULMONARY DISEASE, U 10/13/2017 KETAN DUARTE [employer] C[employer] MOTHER Ot R05 COUGH 10/13/2017 KETAN DUARTE [employer] C[employer] MOTHER Ot R06.2 WHEEZING 10/13/2017 KETAN DUARTE [employer] C[employer] MOTHER Ot F17.201 NICOTINE DEPENDENCE, UNSPECIFIED, IN REM 10/13/2017 KETAN DUARTE DAY CARE HOME MOTHER Ot J44.9 CHRONIC OBSTRUCTIVE PULMONARY DISEASE, U 10/13/2017 KETAN DUARTE [employer] CARE HOME MOTHER Ot R05 COUGH 10/13/2017 KETAN DUARTE APRN Ot R06.2 WHEEZING 10/13/2017 LULÚ MCKEON DO Ot F41. 9 ANXIETY DISORDER, UNSPECIFIED 10/13/2017 LULÚ MCKEON DO Ot J44. 9 CHRONIC OBSTRUCTIVE PULMONARY DISEASE, U 10/13/2017 LULÚ MCKEON DO Ot R06. 02 SHORTNESS OF BREATH 10/13/2017 LULÚ MCKEON DO Ot Z72. 0 TOBACCO [...] FACC, ALI FACP CCDS Ot 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 10/13/2017 JESSICA [...] FACC, ALI FACP CCDS Ot 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 10/13/2017 JESSICA [...] 10/13/2017 MARLENA HURTADO Gloria Ot 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 10/13/2017 MARLENA HURTADO Gloria Ot I80.209 PHLBTS AND THOMBOPHLB OF [facility] DEEP VESSE 10/13/2017 MARLENA HURTADO Gloria Ot J44.9 CHRONIC OBSTRUCTIVE PULMONARY DISEASE, U 10/13/2017 MARLENA HURTADO Gloria Ot Z79.899 OTHER REHABILITATION THERAPY AIDE (CURRENT) DRUG THERAPY 10/13/2017 JANEY ALFORD, GRETEL [...] OF [place] 10/15/2017 DAPHNE YUSUF Ot I70.203 [facility] 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 10/15/2017 DAPHNE YUSUF Ot 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 PERFORATION OR AB 11/04/2017 DAPHNE YUSUF Ot I70.0 ATHEROSCLEROSIS OF [place] 11/04/2017 MADELIN, DAPHNE FAN MAIL EDITOR Ot I70.203 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 11/04/2017 DAPHNE YUSUF FAN MAIL EDITOR Ot 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 PERFORATION OR AB 11/20/2017 DAPHNE YUSUF FAN MAIL EDITOR Ot I70.0 ATHEROSCLEROSIS OF [place] 11/20/2017 DAPHNE YUSUF FAN MAIL EDITOR Ot I70.203 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 11/20/2017 DAPHNE YUSUF FAN MAIL EDITOR Ot 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 [...] 3 ENCOUNTER FOR THERAPEUTIC DRUG MONITORIN 11/27/2017 MAJRORIE EDUARDO FAN MAIL EDITOR Ot 305.1 TOBACCO USE DISORDER 11/27/2017 MARJORIE EDUARDO FAN MAIL EDITOR Ot 427.0 PAROX ATRIAL TACHYCARDIA 11/27/2017 MARJORIE EDUARDO FAN MAIL EDITOR Ot 443.9 PERIPH VASCULAR DIS NOS 11/27/2017 MARJORIE EDUARDO FAN MAIL EDITOR Ot 4 96 CHR AIRWAY OBSTRUCT NEC 11/27/2017 DAPHNE YUSUF FAN MAIL EDITOR Ot I73.9 PERIPHERAL VASCULAR DISEASE, UNSPECIFIED 11/27/2017 NAM GASPAR FAN MAIL EDITOR Ot R06.02 SHORTNESS OF BREATH 11/27/2017 NAM GASPAR FAN MAIL EDITOR Ot R60.9 EDEMA, UNSPECIFIED 11/27/2017 JESSICA ALFORD FACC, AUGIE ELI CCDS Ot R06.02 SHORTNESS OF BREATH 11/27/2017 GERALD, KETAN E DAY CARE HOME MOTHER Ot G47.9 SLEEP DISORDER, UNSPECIFIED 11/27/2017 GERALDMARYCHUYKETAN Anmol DAY CARE HOME MOTHER Ot J44.9 CHRONIC OBSTRUCTIVE PULMONARY DISEASE, U 11/27/2017 GERALDMARYCHUY ELLISONINE Anmol DAY CARE HOME MOTHER Ot R05 COUGH 11/27/2017 GERALDMARYCHUY ELLISONINE E DAY CARE HOME MOTHER Ot R06.2 WHEEZING 11/27/2017 GERALDMARYCHUY ELLISONINE Anmol DAY CARE HOME MOTHER Ot F17.201 NICOTINE DEPENDENCE, UNSPECIFIED, IN REM 11/27/2017 GERALD KETAN Anmol DAY CARE HOME MOTHER Ot J44.9 CHRONIC OBSTRUCTIVE PULMONARY DISEASE, U 11/27/2017 GERALDMARYCHUY ELLISONINE Anmol DAY CARE HOME MOTHER Ot R05 COUGH 11/27/2017 GERALDMARYCHUYKETAN Anmol DAY CARE HOME MOTHER Ot R06.2 WHEEZING 11/27/2017 LULÚ MCKEON DO [...] FACC, ALI FACP CCDS Ot 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 11/27/2017 JESSICA [...] FACJude, ALI FACP CCDS Ot 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 11/27/2017 JESSICA [...] HERNANDEZ 11/27/2017 MARLENA HURTADO Ot 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 11/27/2017 MARLENA HURTADO Ot I80.209 PHLBTS AND THOMBOPHLB OF [facility] DEEP VESSE 11/27/2017 MARLENA HURTADO Ot J44.9 CHRONIC OBSTRUCTIVE PULMONARY DISEASE, U 11/27/2017 MARLENA HURTADO Ot Z79.899 OTHER REHABILITATION THERAPY AIDE (CURRENT) DRUG THERAPY 11/27/2017 JANEY ALFORD, GRETEL [...] I70.0 ATHEROSCLEROSIS OF [place] 11/27/2017 DAPHNE YUSUF FAN MAIL EDITOR Ot I70.203 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 11/27/2017 DAPHNE YUSUF FAN MAIL EDITOR Ot 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 [...] FOR THERAPEUTIC DRUG MONITORIN 12/03/2017 MARJORIE EDUARDO FAN MAIL EDITOR Ot 305.1 TOBACCO USE DISORDER 12/03/2017 MARJORIE EDUARDO FAN MAIL EDITOR Ot 427.0 PAROX ATRIAL TACHYCARDIA 12/03/2017 MARJORIE EDUARDO FAN MAIL EDITOR Ot 443.9 PERIPH VASCULAR DIS NOS 12/03/2017 MARJORIE EDUARDO FAN MAIL EDITOR Ot 4 96 CHR AIRWAY OBSTRUCT NEC 12/03/2017 DAPHNE YUSUF FAN MAIL EDITOR Ot I73.9 PERIPHERAL VASCULAR DISEASE, UNSPECIFIED 12/03/2017 NAM GASPAR FAN MAIL EDITOR Ot R06.02 SHORTNESS OF BREATH 12/03/2017 NAM GASPAR FAN MAIL EDITOR Ot R60.9 EDEMA, UNSPECIFIED 12/03/2017 JESSICA ALFORD FACAUGIE Roque FACP CCDS Ot R06.02 SHORTNESS OF BREATH 12/03/2017 KETAN DUARTE APRN Ot G47.9 SLEEP DISORDER, UNSPECIFIED 12/03/2017 KETAN DUARTE APRN Ot J44.9 CHRONIC OBSTRUCTIVE PULMONARY DISEASE, U 12/03/2017 MARYCHUY DUARTEINE Anmol DAY CARE HOME MOTHER Ot R05 COUGH 12/03/2017 KETAN DUARTE DAY CARE HOME MOTHER Ot R06.2 WHEEZING 12/03/2017 KETAN DUARTE DAY C[employer] HOME MOTHER Ot F17.201 NICOTINE DEPENDENCE, UNSPECIFIED, IN REM 12/03/2017 MARYCHUY DUARTEINE Anmol DAY CARE HOME MOTHER Ot J44.9 CHRONIC OBSTRUCTIVE PULMONARY DISEASE, U 12/03/2017 GERALD, KETAN Anmol DAY CARE HOME MOTHER Ot R05 COUGH 12/03/2017 KETAN DUARTE DAY CARE HOME MOTHER Ot R06.2 WHEEZING 12/03/2017 LULÚ MCKEON DO [...] FACC, AUGIE FACP CCDS Ot 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 12/03/2017 JESSICA [...] FAC, ALI FACP CCDS Ot 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 12/03/2017 JESSICA [...] HERNANDEZ 12/03/2017 MARLENA HURTADO Ot 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 12/03/2017 MARLENA HURTADO Ot I80.209 PHLBTS AND THOMBOPHLB OF [facility] DEEP VESSE 12/03/2017 MARLENA HURTADO Ot J44.9 CHRONIC OBSTRUCTIVE PULMONARY DISEASE, U 12/03/2017 MARLENA HURTADO Ot Z79.899 OTHER REHABILITATION THERAPY AIDE (CURRENT) DRUG THERAPY 12/03/2017 JANEY ALFORD, GRETEL [...] 12/03/2017 DAPHNE YUSUF Ot I70.203 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 12/03/2017 DAPHNE YUSUF Ot [...] APRN Ot I25.10 ATHSCL HEART DISEASE OF [place] CORONARY 12/03/2017 PALOMO SALAZAR APRN Ot I47 [...] BREATH 12/03/2017 PALOMO SALAZAR APRN Ot Z79.01 REHABILITATION THERAPY AIDE (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 OF ANTICOAGULANT 12/03/2017 PALOMO SALAZAR APRN Ot Z79.51 REHABILITATION THERAPY AIDE (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 OF INHALED STERO 12/03/2017 PALOMO SALAZAR APRN Ot Z79.52 REHABILITATION THERAPY AIDE (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 OF SYSTEMIC STER 12/03/2017 PALOMO SALAZAR APRN Ot Z79.82 USP (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 12/03/2017 PALOMO SALAZAR [...] APRN Ot Z88 .8 ALLERGY STATUS TO [facility] DRUG/MEDS/BIOL SUB 12/07/2017 PALOMO SALAZAR APRN Ot E78.00 PURE HYPERCHOLESTEROLEMIA, UNSPECIFIED 12/07/2017 PALOMO SALAZAR APRN Ot F03.90 UNSPECIFIED DEMENTIA WITHOUT BEHAVIORAL 12/07/2017 PALOMO SALAZAR APRN Ot F32 .9 MAJOR DEPRESSIVE DISORDER, SINGLE EPISOD 12/07/2017 PALOMO SALAZAR APRN Ot F41 .9 ANXIETY DISORDER, UNSPECIFIED 12/07/2017 PALOMO SALAZAR APRN Ot I10 ESSENTIAL (PRIMARY) HYPERTENSION 12/07/2017 PALOMO SALAZAR APRN Ot I25.10 ATHSCL HEART DISEASE OF [place] CORONARY 12/07/2017 PALOMO SALAZAR APRN Ot I47 [...] BREATH 12/07/2017 PALOMO SALAZAR APRN Ot Z79.01 USP (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 OF ANTICOAGULANT 12/07/2017 PALOMO SALAZAR APRN Ot Z79.51 USP (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 OF INHALED STERO 12/07/2017 PALOMO SALAZAR APRN Ot Z79.52 USP (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 OF SYSTEMIC STER 12/07/2017 PALOMO SALAZAR APRN Ot Z79.82 USP (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 12/07/2017 PALOMO SALAZAR [...] FOR THERAPEUTIC DRUG MONITORIN 03/05/2018 MARJORIE EDUARDO FAN MAIL EDITOR Ot 305.1 TOBACCO USE DISORDER 03/05/2018 MARJORIE EDUARDO FAN MAIL EDITOR Ot 427.0 PAROX ATRIAL TACHYCARDIA 03/05/2018 MARJORIE EDUARDO FAN MAIL EDITOR Ot 443.9 PERIPH VASCULAR DIS NOS 03/05/2018 MARJORIE EDUARDO FAN MAIL EDITOR Ot 4 96 CHR AIRWAY OBSTRUCT NEC 03/05/2018 DAPHNE YUSUF FAN MAIL EDITOR Ot I73.9 PERIPHERAL VASCULAR DISEASE, UNSPECIFIED 03/05/2018 NAM GASPAR FAN MAIL EDITOR Ot R06.02 SHORTNESS OF BREATH 03/05/2018 NAM GASPAR FAN MAIL EDITOR Ot R60.9 EDEMA, UNSPECIFIED 03/05/2018 JESSICA ALFORD FAC, AUGIE ELI CCDS Ot R06.02 SHORTNESS OF BREATH 03/05/2018 KETAN DUARTE DAY CARE HOME MOTHER Ot G47.9 SLEEP DISORDER, UNSPECIFIED 03/05/2018 MARYCHUY DUARTEINE E DAY CARE HOME MOTHER Ot J44.9 CHRONIC OBSTRUCTIVE PULMONARY DISEASE, U 03/05/2018 MARYCUHY DUARTEINE E DAY CARE HOME MOTHER Ot R05 COUGH 03/05/2018 MARYCHUY DUARTEINE E DAY CARE HOME MOTHER Ot R06.2 WHEEZING 03/05/2018 GERALD, KETAN E DAY CARE HOME MOTHER Ot F17.201 NICOTINE DEPENDENCE, UNSPECIFIED, IN REM 03/05/2018 KETAN DUARTE DAY C[employer] HOME MOTHER Ot J44.9 CHRONIC OBSTRUCTIVE PULMONARY DISEASE, U 03/05/2018 MARYCHUY DUARTEINE Anmol DAY CARE HOME MOTHER Ot R05 COUGH 03/05/2018 KETAN DUARTE DAY C[employer] HOME MOTHER Ot R06.2 WHEEZING 03/05/2018 LULÚ MCKEON DO Ot F41. 9 ANXIETY DISORDER, UNSPECIFIED 03/05/2018 LULÚ MCKEON DO Ot J44. 9 CHRONIC OBSTRUCTIVE PULMONARY DISEASE, U 03/05/2018 LULÚ MCKEON DO Ot R06. 02 SHORTNESS OF BREATH 03/05/2018 LULÚ MCKEON DO Ot Z72. 0 TOBACCO USE 03/05/2018 DAPHNE YUSUF FAN MAIL EDITOR Ot D50.9 IRON DEFICIENCY ANEMIA, UNSPECIFIED 03/05/2018 [...] FACC, ALI FACP CCDS Ot 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 03/05/2018 JESSICA [...] FACC, ALI FACP CCDS Ot 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 03/05/2018 JESSICA [...] HERNANDEZ 03/05/2018 MARLENA HURTADO Ot 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 03/05/2018 MARLENA HURTADO Ot I80.209 PHLBTS AND THOMBOPHLB OF [facility] DEEP VESSE 03/05/2018 GENESIS, MARLENA Castro Ot J44.9 CHRONIC OBSTRUCTIVE PULMONARY DISEASE, U 03/05/2018 GENESISMARLENA Ot Z79.899 OTHER REHABILITATION THERAPY AIDE (CURRENT) DRUG THERAPY 03/05/2018 JANEY ALFORD, GRETEL [...] 02 SHORTNESS OF BREATH 03/05/2018 DAPHNE YUSUF [facility] Ot I70.0 ATHEROSCLEROSIS OF [place] 03/05/2018 DAPHNE YUSUF [facility] Ot I70.203 [facility] 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 03/05/2018 DAPHNE YUSUF [facility] Ot K57.30 DVRTCLOS OF LG INT [...] INITIAL 03/18/2018 DANA HUMPHREY MD Ot Z79.01 USP (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 OF ANTICOAGULANT 03/18/2018 DANA HUMPHREY MD, Ot Z79.51 REHABILITATION THERAPY AIDE (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 OF INHALED STERO 03/18/2018 DANA HUMPHREY MD, Ot Z79.52 USP (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 OF SYSTEMIC STER 03/18/2018 DANA HUMPHREY MD, Ot Z79.82 USP (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 03/18/2018 DANA HUMPHREY [...] HUMPHREY MD Ot Z88.8 ALLERGY STATUS TO [facility] DRUG/MEDS/BIOL SUB 03/18/2018 DANA HUMPHREY MD Ot [...] INITIAL 03/22/2018 DANA HUMPHREY MD Ot Z79.01 USP (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 OF ANTICOAGULANT 03/22/2018 DANA HUMPHREY MD Ot Z79.51 USP (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 OF INHALED STERO 03/22/2018 DANA HUMPHREY MD Ot Z79.52 USP (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 OF SYSTEMIC STER 03/22/2018 DANA HUMPHREY MD Ot Z79.82 REHABILITATION THERAPY AIDE (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 03/22/2018 DANA HUMPHREY [...] FOR THERAPEUTIC DRUG MONITORIN 04/05/2018 MARJORIE EDUARDO FAN MAIL EDITOR Ot 305.1 TOBACCO USE DISORDER 04/05/2018 MARJORIE EDUARDO FAN MAIL EDITOR Ot 427.0 PAROX ATRIAL TACHYCARDIA 04/05/2018 MARJORIE EDUARDO FAN MAIL EDITOR Ot 443.9 PERIPH VASCULAR DIS NOS 04/05/2018 MARJORIE EDUARDO FAN MAIL EDITOR Ot 4 96 CHR AIRWAY OBSTRUCT NEC 04/05/2018 DAPHNE YUSUF FAN MAIL EDITOR Ot I73.9 PERIPHERAL VASCULAR DISEASE, UNSPECIFIED 04/05/2018 NAM GASPAR FAN MAIL EDITOR Ot R06.02 SHORTNESS OF BREATH 04/05/2018 GASPAR, NAM R FAN MAIL EDITOR Ot R60.9 EDEMA, UNSPECIFIED 04/05/2018 JESSICA ALFORD FACC, ALI FACP CCDS Ot R06.02 SHORTNESS OF BREATH 04/05/2018 KETAN DUARTE DAY CARE HOME MOTHER Ot G47.9 SLEEP DISORDER, UNSPECIFIED 04/05/2018 GERALDKETAN ELLISON DAY CARE HOME MOTHER Ot J44.9 CHRONIC OBSTRUCTIVE PULMONARY DISEASE, U 04/05/2018 GERALDMARYCHUY ELLISONINE E DAY CARE HOME MOTHER Ot R05 COUGH 04/05/2018 GERALDMARYCHUY ELLISONINE E DAY CARE HOME MOTHER Ot R06.2 WHEEZING 04/05/2018 GERALDMARYCHUY ELLISONINE E DAY CARE HOME MOTHER Ot F17.201 NICOTINE DEPENDENCE, UNSPECIFIED, IN REM 04/05/2018 KETAN DUARTE DAY CARE HOME MOTHER Ot J44.9 CHRONIC OBSTRUCTIVE PULMONARY DISEASE, U 04/05/2018 GERALDKETAN ELLISON DAY CARE HOME MOTHER Ot R05 COUGH 04/05/2018 KETAN DUARTE DAY CARE HOME MOTHER Ot R06.2 WHEEZING 04/05/2018 LULÚ MCKEON DO [...] FACC, ALI FACP CCDS Ot 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 04/05/2018 JESSICA [...] FAC, ALI FACP CCDS Ot 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 04/05/2018 JESSICA [...] F17.210 NICOTINE DEPENDENCE, CIGARETTES, UNCOMPL 04/05/2018 MARLENA HUTRADO Ot F41.9 ANXIETY DISORDER, UNSPECIFIED 04/05/2018 MARLENA HURTADO Ot I47.1 SUPRAVENTRICULAR TACHYCARDIA 04/05/2018 MARLENA HURTADO Ot I65.23 OCCLUSION AND STENOSIS OF BILATERAL HERNANDEZ 04/05/2018 MARLENA HURTADO Ot 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 04/05/2018 MARLENA HURTADO Ot I80.209 PHLBTS AND THOMBOPHLB OF [facility] DEEP VESSE 04/05/2018 MARLENA HURTADO Ot J44.9 CHRONIC OBSTRUCTIVE PULMONARY DISEASE, U 04/05/2018 MARLENA HURTADO Ot Z79.899 OTHER USP (CURRENT) DRUG THERAPY 04/05/2018 JANEY ALFORD, GRETEL Brannon Ot A04.7 ENTEROCOLITIS DUE TO CLOSTRIDIUM DIFFICI 04/05/2018 KETAN DUARTE APRN Ot R09.02 HYPOXEMIA 04/05/2018 KETAN DUARTE APRN Ot R91.1 SOLITARY PULMONARY NODULE 04/05/2018 GERALD, KETAN E DAY CARE HOME MOTHER Ot Z72.0 TOBACCO USE 04/05/2018 LULÚ MCKEON DO Ot F41. 9 ANXIETY DISORDER, UNSPECIFIED 04/05/2018 LULÚ MCKEON DO Ot J43. 8 OTHER EMPHYSEMA 04/05/2018 LULÚ MCKEON DO Ot R06. 02 SHORTNESS OF BREATH 04/05/2018 DAPHNE YUSUF FAN MAIL EDITOR Ot I70.0 ATHEROSCLEROSIS OF [place] 04/05/2018 DAPHNE YUSUF FAN MAIL EDITOR Ot I70.203 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 04/05/2018 DAPHNE YUSUF FAN MAIL EDITOR Ot 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 [...] FONG MD, FACC FACP CCDS Ot Z79.01 USP (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 OF ANTICOAGULANT 04/08/2018 JESSICA ALFORD FACC, ALI FACP CCDS Ot Z79.82 REHABILITATION THERAPY AIDE (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 04/08/2018 JESSICA ALFORD FACC ALI FACP CCDS Ot Z79.899 OTHER USP (CURRENT) DRUG THERAPY 04/08/2018 JESSICA ALFORD FACC [...] FOLLOWING CEREBRAL INFRC AFF RI 04/27/2018 JESSICA ALFORD FACC, ALI FACP CCDS Ot I73.9 PERIPHERAL VASCULAR DISEASE, UNSPECIFIED 04/27/2018 JESSICA ALFORD FACC, ALI FACP CCDS Ot J44.9 CHRONIC OBSTRUCTIVE PULMONARY DISEASE, U 04/27/2018 JESSICA ALFORD FACC, ALI FACP CCDS Ot R00.2 PALPITATIONS 04/27/2018 JESSICA ALFORD FACC, ALI FACP CCDS Ot Z68.31 BODY MASS INDEX (BMI) 31.0-31.9, ADULT 04/27/2018 JESSICA ALFORD FACC, ALI FACP CCDS Ot Z79.01 REHABILITATION THERAPY AIDE (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 OF ANTICOAGULANT 04/27/2018 JESSICA ALFORD FACC, ALI FACP CCDS Ot Z79.82 USP (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 04/27/2018 JESSICA ALFORD FACC, ALI FACP CCDS Ot Z79.899 OTHER USP (CURRENT) DRUG THERAPY 04/27/2018 JESSICA ALFORD FACC, [...] FOR THERAPEUTIC DRUG MONITORIN 08/17/2018 MARJORIE EDUARDO FAN MAIL EDITOR Ot 305.1 TOBACCO USE DISORDER 08/17/2018 MARJORIE EDUARDO FAN MAIL EDITOR Ot 427.0 PAROX ATRIAL TACHYCARDIA 08/17/2018 MARJORIE EDUARDO FAN MAIL EDITOR Ot 443.9 PERIPH VASCULAR DIS NOS 08/17/2018 MARJORIE EDUARDO FAN MAIL EDITOR Ot 4 96 CHR AIRWAY OBSTRUCT NEC 08/17/2018 DAPHNE YUSUF FAN MAIL EDITOR Ot I73.9 PERIPHERAL VASCULAR DISEASE, UNSPECIFIED 08/17/2018 NAM GASPAR FAN MAIL EDITOR Ot R06.02 SHORTNESS OF BREATH 08/17/2018 NAM GASPAR FAN MAIL EDITOR Ot R60.9 EDEMA, UNSPECIFIED 08/17/2018 JESSICA ALFORD FAC, AUGIE FACP CCDS Ot R06.02 SHORTNESS OF BREATH 08/17/2018 KETAN DUARTE [employer] CARE HOME MOTHER Ot G47.9 SLEEP DISORDER, UNSPECIFIED 08/17/2018 KETAN DUARTE [employer] C[employer] HOME MOTHER Ot J44.9 CHRONIC OBSTRUCTIVE PULMONARY DISEASE, U 08/17/2018 KETAN DUARTE [employer] C[employer] HOME MOTHER Ot R05 COUGH 08/17/2018 KETAN DUARTE DAY C[employer] HOME MOTHER Ot R06.2 WHEEZING 08/17/2018 KETAN DUARTE [employer] C[employer] HOME MOTHER Ot F17.201 NICOTINE DEPENDENCE, UNSPECIFIED, IN REM 08/17/2018 KETAN DUARTE [employer] C[employer] HOME MOTHER Ot J44.9 CHRONIC OBSTRUCTIVE PULMONARY DISEASE, U 08/17/2018 KETAN DUARTE [employer] CARE HOME MOTHER Ot R05 COUGH 08/17/2018 KETAN DUARTE APRN [...] FACC, ALI FACP CCDS Ot 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 08/17/2018 JESSICA [...] FACC, ALI FACP CCDS Ot 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 08/17/2018 JESSICA [...] 08/17/2018 GENESIS NEOTRI Gloria Ot 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 08/17/2018 GENESIS MARLENA Gloria Ot I80.209 PHLBTS AND THOMBOPHLB OF [place] DEEP VESSE 08/17/2018 GENESIS MARLENA Gloria Ot J44.9 CHRONIC OBSTRUCTIVE PULMONARY DISEASE, U 08/17/2018 MARLENA HURTADO Gloria Ot Z79.899 OTHER USP (CURRENT) DRUG THERAPY 08/17/2018 JANEY ALFORD, GRETEL Brannon Ot A04.7 ENTEROCOLITIS DUE TO CLOSTRIDIUM DIFFICI 08/17/2018 KETAN DUARTE APRN Ot R09.02 HYPOXEMIA 08/17/2018 KETAN DUARTE APRN Ot R91.1 SOLITARY PULMONARY NODULE 08/17/2018 KETAN DURATE APRN Ot Z72.0 TOBACCO USE 08/17/2018 LULÚ MCKEON DO Ot F41. 9 ANXIETY DISORDER, UNSPECIFIED 08/17/2018 LULÚ MCKEON DO Ot J43. 8 OTHER EMPHYSEMA 08/17/2018 LULÚ MCKEON DO Ot R06. 02 SHORTNESS OF BREATH 08/17/2018 DAPHNE YUSUF Ot I70.0 ATHEROSCLEROSIS OF [place] 08/17/2018 DAPHNE YUSUF Ot I70.203 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 08/17/2018 DAPHNE YUSUF Ot [...] ALFORD FACC, ALI FACP CCDS Ot Z79.01 USP (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 OF ANTICOAGULANT 08/17/2018 JESSICA ALFORD FACC, ALI FACP CCDS Ot Z79.82 REHABILITATION THERAPY AIDE (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 08/17/2018 JESSICA ALFORD FACC, ALI FACP CCDS Ot Z79.899 OTHER REHABILITATION THERAPY AIDE (CURRENT) DRUG THERAPY 08/17/2018 JESSICA ALFORD FACC, [...] THERAPEUTIC DRUG MONITORIN 09/02/2018 YURIMARJORIE KOLB Carlyn FAN MAIL EDITOR Ot 305.1 TOBACCO USE DISORDER 09/02/2018 ALESHAMARJORIE L FAN MAIL EDITOR Ot 427.0 PAROX ATRIAL TACHYCARDIA 09/02/2018 ALESHAMARJORIE L FAN MAIL EDITOR Ot 443.9 PERIPH VASCULAR DIS NOS 09/02/2018 ALESHA MARJORIE L FAN MAIL EDITOR Ot 4 96 CHR AIRWAY OBSTRUCT NEC 09/02/2018 DAPHNE YUSUF FAN MAIL EDITOR Ot I73.9 PERIPHERAL VASCULAR DISEASE, UNSPECIFIED 09/02/2018 ANM GASPAR FAN MAIL EDITOR Ot R06.02 SHORTNESS OF BREATH 09/02/2018 NAM GASPAR FAN MAIL EDITOR Ot R60.9 EDEMA, UNSPECIFIED 09/02/2018 JESSICA ALFORD FACC, AUGIE FACP CCDS Ot R06.02 SHORTNESS OF BREATH 09/02/2018 KETAN DUARTE E DAY CARE HOME MOTHER Ot G47.9 SLEEP DISORDER, UNSPECIFIED 09/02/2018 MARYCHUY DUARTEINE E DAY CARE HOME MOTHER Ot J44.9 CHRONIC OBSTRUCTIVE PULMONARY DISEASE, U 09/02/2018 MARYCHUY DUARTEINE E DAY CARE HOME MOTHER Ot R05 COUGH 09/02/2018 MARYCHUY DUARTEINE E DAY CARE HOME MOTHER Ot R06.2 WHEEZING 09/02/2018 GERALD, KETAN E DAY CARE HOME MOTHER Ot F17.201 NICOTINE DEPENDENCE, UNSPECIFIED, IN REM 09/02/2018 KETAN DUARTE DAY CARE HOME MOTHER Ot J44.9 CHRONIC OBSTRUCTIVE PULMONARY DISEASE, U 09/02/2018 MARYCHUY DUARTEINE E DAY CARE HOME MOTHER Ot R05 COUGH 09/02/2018 MARYCHUY DUARTEINE E DAY CARE HOME MOTHER Ot R06.2 WHEEZING 09/02/2018 LULÚ MCKEON DO [...] FACC, ALI FACP CCDS Ot 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 09/02/2018 JESSICA [...] FACC, ALI FACP CCDS Ot 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 09/02/2018 JESSICA [...] BILATERAL HERNANDEZ 09/02/2018 GENESISMARLENA Ot 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 09/02/2018 GENESISMARLENA Ot I80.209 PHLBTS AND THOMBOPHLB OF [place]SP DEEP VESSE 09/02/2018 GENESISMARLENA Ot J44.9 CHRONIC OBSTRUCTIVE PULMONARY DISEASE, U 09/02/2018 GENESISMARLENA Ot Z79.899 OTHER REHABILITATION THERAPY AIDE (CURRENT) DRUG THERAPY 09/02/2018 JANEY ALFORD, GRETEL [...] 09/02/2018 DAPHNE YUSUF Ot I70.203 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 09/02/2018 DAPHNE YUSUF Ot [...] Ot I73.9 PERIPHERAL VASCULAR DISEASE, UNSPECIFIED 09/02/2018 JESISCA ALFORD FACC, AUGIE FACP CCDS Ot J44.9 CHRONIC OBSTRUCTIVE PULMONARY DISEASE, U 09/02/2018 JESSICA ALFORD FACC, AUGIE FACP CCDS Ot R00.2 PALPITATIONS 09/02/2018 JESSICA ALFORD FACC, ALI FACP CCDS Ot Z68.31 BODY MASS INDEX (BMI) 31.0-31.9, ADULT 09/02/2018 JESSICA ALFORD FACC, AUGIE FACP CCDS Ot Z79.01 USP (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 OF ANTICOAGULANT 09/02/2018 JESSICA ALFORD FACC, AUGIE FACP CCDS Ot Z79.82 REHABILITATION THERAPY AIDE (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 09/02/2018 JESSICA ALFORD FACC, AUGIE FACP CCDS Ot Z79.899 OTHER USP (CURRENT) DRUG THERAPY 09/02/2018 JESSICA ALFORD FACC, AUGIE FACP CCDS Ot Z86.718 PERSONAL HISTORY OF OTHER VENOUS THROMBO 09/02/2018 JESSICA ALFORD FACC, AUGIE FACP CCDS Ot Z87.891 PERSONAL HISTORY OF NICOTINE DEPENDENCE 09/02/2018 JESSICA ALFORD FACC, ALI FACP CCDS Ot Z95.820 PERIPHERAL VASCULAR ANGIOPLASTY STATUS W 09/02/2018 MARJORIE EDUARDO FAN MAIL EDITOR Ot I08.1 RHEUMATIC DISORDERS OF BOTH MITRAL AND T 09/02/2018 MARJORIE EDUARDO FAN MAIL EDITOR Ot I48.3 TYPICAL ATRIAL FLUTTER 09/02/2018 PALOMO SALAZAR APRN Ot E78.00 PURE HYPERCHOLESTEROLEMIA, UNSPECIFIED 09/02/2018 PALOMO SALAZAR APRN Ot F03.90 UNSPECIFIED DEMENTIA WITHOUT BEHAVIORAL 09/02/2018 PALOMO SALAZAR DAY CARE HOME MOTHER Ot F32 .9 MAJOR DEPRESSIVE DISORDER, SINGLE EPISOD 09/02/2018 PALOMO SALAZAR APRN Ot F41 .9 ANXIETY DISORDER, UNSPECIFIED 09/02/2018 PALOMO SLAAZAR APRN Ot I10 ESSENTIAL (PRIMARY) HYPERTENSION 09/02/2018 PALOMO SALAZAR APRN Ot I73 .9 PERIPHERAL VASCULAR DISEASE, UNSPECIFIED 09/02/2018 PALOMO SALAZAR APRN Ot J43 .9 EMPHYSEMA, UNSPECIFIED 09/02/2018 PALOMO SALAZAR APRN Ot M06 .9 RHEUMATOID ARTHRITIS, UNSPECIFIED 09/02/2018 PALOMO SALAZAR APRN Ot M79.672 PAIN IN LEFT FOOT 09/02/2018 PALOMO SALAZAR APRN Ot Z79.01 REHABILITATION THERAPY AIDE (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 OF ANTICOAGULANT 09/02/2018 PALOMO SALAZAR APRN Ot Z79.51 REHABILITATION THERAPY AIDE (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 OF INHALED STERO 09/02/2018 PALOMO SALAZAR APRN Ot Z79.52 USP (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 OF SYSTEMIC STER 09/02/2018 PALOMO SALAZAR APRN Ot Z79.82 REHABILITATION THERAPY AIDE (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 09/02/2018 PALOMO SALAZAR [...] FOOT 09/06/2018 PALOMO SALAZAR APRN Ot Z79.01 USP (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 OF ANTICOAGULANT 09/06/2018 PALOMO SALAZAR APRN Ot Z79.51 REHABILITATION THERAPY AIDE (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 OF INHALED STERO 09/06/2018 PALOMO SALAZAR APRN Ot Z79.52 USP (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 OF SYSTEMIC STER 09/06/2018 PALOMO SALAZAR APRN Ot Z79.82 REHABILITATION THERAPY AIDE (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 09/06/2018 PALOMO SALAZAR APRN Ot Z80 .1 FAMILY HISTORY OF MALIG NEOPLASM OF TRAC 09/06/2018 PALOMO SALAZAR APRN Ot Z82.49 FAMILY HX OF ISCHEM HEART DIS AND OTH DI 09/06/2018 PALOMO SALAZAR APRN Ot Z85.819 PRSNL [facility] 09/06/2018 PALOMO SALAZAR [...] MITRAL AND T 09/08/2018 BAIMA, MARJORIE L FAN MAIL EDITOR Ot I48.3 TYPICAL ATRIAL FLUTTER 10/12/2018 DAPHNE YUSUF FAN MAIL EDITOR Ot R59.0 LOCALIZED ENLARGED LYMPH NODES 10/12/2018 MADELINDAPHNE PADILLA FAN MAIL EDITOR Ot Z98.890 OTHER SPECIFIED POSTPROCEDURAL STATES 10/13/2018 DAPHNE YUSUF FAN MAIL EDITOR Ot R59.0 LOCALIZED ENLARGED LYMPH NODES 10/13/2018 DAPHNE YUSUF FAN MAIL EDITOR Ot Z85.819 PRSNL HX OF MALIG NEOPLM OF [facility] SITE LI 10/13/2018 DAPHNE YUSUF FAN MAIL EDITOR Ot Z98.890 OTHER SPECIFIED POSTPROCEDURAL STATES 10/25/2018 DAPHNE YUSUF FAN MAIL EDITOR Ot R59.0 LOCALIZED ENLARGED LYMPH NODES 10/25/2018 MADELINDAPHNE PADILLA FAN MAIL EDITOR Ot Z98.890 OTHER SPECIFIED POSTPROCEDURAL STATES 10/26/2018 DAPHNE YUSUF FAN MAIL EDITOR Ot R59.0 LOCALIZED ENLARGED LYMPH NODES 10/26/2018 DAPHNE YUSUF FAN MAIL EDITOR Ot Z85.819 PRSNL HX OF MALIG NEOPLM OF [facility] SITE LI 10/26/2018 DAPHNE YUSUF FAN MAIL EDITOR Ot Z98.890 OTHER SPECIFIED POSTPROCEDURAL STATES 10/30/2018 MARLENA HURTADO Ot E11.59 TYPE 2 DIABETES MELLITUS WITH OTH CIRCUL 10/30/2018 MARLENA HURTADO Ot F17.210 NICOTINE DEPENDENCE, CIGARETTES, UNCOMPL 10/30/2018 MARLENA HURTADO Ot F41.9 ANXIETY DISORDER, UNSPECIFIED 10/30/2018 MARLENA HURTADO Ot I47.1 SUPRAVENTRICULAR TACHYCARDIA 10/30/2018 MARLENA HURTADO Ot I65.23 OCCLUSION AND STENOSIS OF BILATERAL HERNANDEZ 10/30/2018 MARLENA HURTADO Ot 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 10/30/2018 MARLENA HURTADO Ot I80.209 PHLBTS AND THOMBOPHLB OF [facility] DEEP VESSE 10/30/2018 MARLENA HURTADO Ot J44.9 CHRONIC OBSTRUCTIVE PULMONARY DISEASE, U 10/30/2018 MARLENA HURTADO Ot Z79.899 OTHER REHABILITATION THERAPY AIDE (CURRENT) DRUG THERAPY 10/30/2018 DANA HUMPHREY MD [...] UNSPECIFIED 10/30/2018 DANA HUMPHREY MD Ot Z79.01 REHABILITATION THERAPY AIDE (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 OF ANTICOAGULANT 10/30/2018 DANA HUMPHREY MD Ot Z79.52 REHABILITATION THERAPY AIDE (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 OF SYSTEMIC STER 10/30/2018 DANA HUMPHREY MD Ot Z79.82 USP (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 10/30/2018 DANA HUMPHREY [...] APRN Ot I25.10 ATHSCL HEART DISEASE OF [place] CORONARY 04/20/2019 KETAN DUARTE [employer] MOTHER Ot J30.9 ALLERGIC RHINITIS, UNSPECIFIED 04/20/2019 KETAN DUARTE [employer] MOTHER Ot J44.9 CHRONIC OBSTRUCTIVE PULMONARY DISEASE, U 04/20/2019 KETAN DUARTE APRN Ot K80.20 CALCULUS OF GALLBLADDER W/O CHOLECYSTITI 04/20/2019 KETAN DUARTE [employer] MOTHER Ot R91.8 OTHER NONSPECIFIC ABNORMAL FINDING OF VICK[place] 04/20/2019 KETAN DUARTE [employer] MOTHER Ot Z72.0 TOBACCO USE 05/05/2019 MARJORIE EDUARDOP Ot I48.92 UNSPECIFIED ATRIAL FLUTTER 05/10/2019 KETAN DUARTE [employer] MOTHER Ot G47.36 SLEEP RELATED HYPOVENTILATION IN CONDITI 05/10/2019 KETAN DUARTE [employer] MOTHER Ot I25.10 ATHSCL HEART DISEASE OF [place] CORONARY 05/10/2019 KETAN DUARTE [employer] MOTHER Ot J30.9 ALLERGIC RHINITIS, UNSPECIFIED 05/10/2019 KETAN DUARTE [employer] MOTHER Ot J44.9 CHRONIC OBSTRUCTIVE PULMONARY DISEASE, U 05/10/2019 KETAN DUARTE [employer] MOTHER Ot K80.20 CALCULUS OF GALLBLADDER W/O CHOLECYSTITI 05/10/2019 KETAN DUARTE [employer] MOTHER Ot R91.8 OTHER NONSPECIFIC ABNORMAL FINDING OF [place] 05/10/2019 KETAN DUARTE [employer] MOTHER Ot Z72.0 TOBACCO USE 05/25/2019 MARJORIE EDUARDOP [...] SLEEP RELATED HYPOVENTILATION IN CONDITI 06/08/2019 JEANNE EASON DO Ot I47.1 SUPRAVENTRICULAR TACHYCARDIA 06/08/2019 JEANNE [...] 06/08/2019 JEANNE EASON DO Ot Z79.8 2 USP (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 06/08/2019 JEANNE EASON DO Ot Z79.8 99 OTHER REHABILITATION THERAPY AIDE (CURRENT) DRUG THERAPY 06/08/2019 JEANNE EASON DO [...] 06/15/2019 JEANNE EASON DO Ot Z79.8 2 USP (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 06/15/2019 JEANNE EASON DO Ot Z79.8 99 OTHER USP (CURRENT) DRUG THERAPY 06/15/2019 JEANNE EASON DO [...] HERNANDEZ 07/05/2019 MARLENA HURTADO Ot 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 07/05/2019 MARLENA HURTADO Ot I80.209 PHLBTS AND THOMBOPHLB OF UNSP DEEP VESSE 07/05/2019 MARLENA HRUTADO Ot J44.9 CHRONIC OBSTRUCTIVE PULMONARY DISEASE, U 07/05/2019 MARLENA HURTADO Ot Z79.899 OTHER USP (CURRENT) DRUG THERAPY 07/05/2019 JACINDA ALFORD, MARCUS [...] ENCOUNTER FOR ANTINEOPLASTIC CHEMOTHERAP 07/14/2019 DAPHNE YUSUF FAN MAIL EDITOR Ot I73.9 PERIPHERAL VASCULAR DISEASE, UNSPECIFIED 07/14/2019 NAM GASPAR F[employer] MAIL EDITOR Ot R06.02 SHORTNESS OF BREATH 07/14/2019 NAM GASPAR F[employer] MAIL EDITOR Ot R60.9 EDEMA, UNSPECIFIED 07/14/2019 JESSICA ALFORD FAC, AUGIE ELI CCDS Ot R06.02 SHORTNESS OF BREATH 07/14/2019 GERALD, KETAN E [employer] MOTHER Ot G47.9 SLEEP DISORDER, UNSPECIFIED 07/14/2019 GERALD, KETAN E [employer] MOTHER Ot J44.9 CHRONIC OBSTRUCTIVE PULMONARY DISEASE, U 07/14/2019 GERALD, KETAN E [employer] MOTHER Ot R05 COUGH 07/14/2019 GERALD, KETAN E [employer] MOTHER Ot R06.2 WHEEZING 07/14/2019 GERALD, KETAN E [employer] MOTHER Ot F17.201 NICOTINE DEPENDENCE, UNSPECIFIED, IN REM 07/14/2019 GERALD, KETAN E [employer] MOTHER Ot J44.9 CHRONIC OBSTRUCTIVE PULMONARY DISEASE, U 07/14/2019 GERALD, KETAN E [employer] MOTHER Ot R05 COUGH 07/14/2019 GERALD, KETAN E [employer] MOTHER Ot R06.2 WHEEZING 07/14/2019 LULÚ MCKEON DO [...] Ot I47.1 SUPRAVENTRICULAR TACHYCARDIA 07/14/2019 JESSICA MD [facility], ALI FACP CCDS Ot 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 07/14/2019 JESSICA ALFORD [facility], ALI FACP CCDS Ot M06.9 RHEUMATOID ARTHRITIS, UNSPECIFIED 07/14/2019 JESSICA MD [facility], ALI FACP CCDS Ot M79.89 OTHER SPECIFIED SOFT TISSUE DISORDERS 07/14/2019 JESSICA MD [facility], ALI FACP CCDS Ot R07.89 OTHER CHEST PAIN 07/14/2019 JESSICA MD [facility], ALI FACP CCDS Ot D63.8 ANEMIA IN OTHER CHRONIC DISEASES CLASSIF 07/14/2019 JESSICA ALFORD [facility], ALI FACP CCDS Ot I47.1 SUPRAVENTRICULAR TACHYCARDIA 07/14/2019 JESSICA MD [facility], ALI FACP CCDS Ot 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 07/14/2019 JESSICA ALFORD [facility], ALI FACP CCDS Ot M06.9 RHEUMATOID ARTHRITIS, UNSPECIFIED 07/14/2019 JESSICA ALFORD [facility], ALI FACP CCDS Ot M79.89 OTHER SPECIFIED SOFT TISSUE DISORDERS 07/14/2019 JESSICA ALFORD [facility], ALI FACP CCDS Ot R07.89 OTHER CHEST PAIN 07/14/2019 MARLENA HURTADO Ot E11.59 TYPE 2 DIABETES MELLITUS WITH OTH CIRCUL 07/14/2019 MARLENA HURTADO Ot F17.210 NICOTINE DEPENDENCE, CIGARETTES, UNCOMPL 07/14/2019 MARLENA HURTADO Ot F41.9 ANXIETY DISORDER, UNSPECIFIED 07/14/2019 MARLENA HURTADO Ot I47.1 SUPRAVENTRICULAR TACHYCARDIA 07/14/2019 MARLENA HURTADO Ot I65.23 OCCLUSION AND STENOSIS OF BILATERAL HERNANDEZ 07/14/2019 MARLENA HURTADO Ot 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 07/14/2019 MARLENA HURTADO Ot I80.209 PHLBTS AND THOMBOPHLB OF UNSP DEEP VESSE 07/14/2019 MARLENA HURTADO Ot J44.9 CHRONIC OBSTRUCTIVE PULMONARY DISEASE, U 07/14/2019 MARLENA HURTADO Ot Z79.899 OTHER USP (CURRENT) DRUG THERAPY 07/14/2019 JANEY ALFORD, GRETEL [...] 02 SHORTNESS OF BREATH 07/14/2019 DAPHNE YUSUF FAN MAIL EDITOR Ot I70.0 ATHEROSCLEROSIS OF [place] 07/14/2019 DAPHNE YUSUF FAN MAIL EDITOR Ot I70.203 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 07/14/2019 DAPHNE YUSUF FAN MAIL EDITOR Ot 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 [...] ALFORD FACC, ALI FACP CCDS Ot Z79.01 USP (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 OF ANTICOAGULANT 07/14/2019 JESSICA [facility]ORD FACC, [facility]UGIE [facility] Ot Z79.82 USP (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 07/14/2019 JESSICA ALFORD FACC, AUGIE FACP CCDS Ot Z79.899 OTHER USP (CURRENT) DRUG THERAPY 07/14/2019 JESSICA ALFORD FACC, AUGIE [facility] CCD[facility] Ot Z86.718 PERSONAL HISTORY OF OTHER VENOUS THROMBO 07/14/2019 JESSICA ALFORD FACC, AUGIE [facility] CCD[facility] Ot Z87.891 PERSONAL HISTORY OF NICOTINE DEPENDENCE 07/14/2019 JESSICA ALFORD FACC, AUGIE [facility] CCD[facility] Ot Z95.820 PERIPHERAL VASCULAR ANGIOPLASTY STATUS W 07/14/2019 MARJORIE EDUARDO FAN MAIL EDITOR Ot I08.1 RHEUMATIC DISORDERS OF BOTH MITRAL AND T 07/14/2019 MARJORIE EDUARDO FAN MAIL EDITOR Ot I48.3 TYPICAL ATRIAL FLUTTER 07/14/2019 DAPHNE YUSUF FAN MAIL EDITOR Ot R59.0 LOCALIZED ENLARGED LYMPH NODES 07/14/2019 DAPHNE YUSUF FAN MAIL EDITOR Ot Z85.819 PRSNL HX OF MALIG NEOPLM OF [facility] SITE LI 07/14/2019 DAPHNE YUSUF FAN MAIL EDITOR Ot Z98.890 OTHER SPECIFIED POSTPROCEDURAL STATES 07/14/2019 DAPHNE YUSUF FAN MAIL EDITOR Ot R59.0 LOCALIZED ENLARGED LYMPH NODES 07/14/2019 PILI YUSUFA FAN MAIL EDITOR Ot Z98.890 OTHER SPECIFIED POSTPROCEDURAL STATES 07/14/2019 KETAN DUARTE APRN Ot G47.36 SLEEP RELATED HYPOVENTILATION IN CONDITI 07/14/2019 KETAN DUARTE [employer] HOME MOTHER Ot I25.10 ATHSCL HEART DISEASE OF [place] CORONARY 07/14/2019 KETAN DUARTE [employer] MOTHER Ot J30.9 ALLERGIC RHINITIS, UNSPECIFIED 07/14/2019 KETAN DUARTE APRN Ot J44.9 CHRONIC OBSTRUCTIVE PULMONARY DISEASE, U 07/14/2019 KETAN DUARTE APRN Ot K80.20 CALCULUS OF GALLBLADDER W/O CHOLECYSTITI 07/14/2019 KETAN DURATE [employer] HOME MOTHER Ot R91.8 OTHER NONSPECIFIC ABNORMAL FINDING OF [place] 07/14/2019 KETAN DUARTE [employer] MOTHER Ot Z72.0 TOBACCO USE 07/14/2019 MARJORIE EDUARDO FAN MAIL EDITOR Ot I48.92 UNSPECIFIED ATRIAL FLUTTER 07/14/2019 JACINDA ALFORD, MARCUS Ot 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, ORAL 07/14/2019 JACINDA ALFORD, MARCUS Ot 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, ORAL 07/14/2019 JACINDA ALFORD, MARCUS Ot 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, ORAL 07/14/2019 DAPHNE YUSUF FAN MAIL EDITOR Ot I73.9 PERIPHERAL VASCULAR DISEASE, UNSPECIFIED 07/14/2019 NAM GASPAR FAN MAIL EDITOR Ot R06.02 SHORTNESS OF BREATH 07/14/2019 NAM GASPAR FAN MAIL EDITOR Ot R60.9 EDEMA, UNSPECIFIED 07/14/2019 JESSICA ALFORD FAC, AUGIE ELI CCDS Ot R06.02 SHORTNESS OF BREATH 07/14/2019 MARYCHUY DUARTEINE E DAY CARE HOME MOTHER Ot G47.9 SLEEP DISORDER, UNSPECIFIED 07/14/2019 GERALD KETAN E [employer] MOTHER Ot J44.9 CHRONIC OBSTRUCTIVE PULMONARY DISEASE, U 07/14/2019 GERALD, KETAN E [employer] MOTHER Ot R05 COUGH 07/14/2019 GERALD KETAN E [employer] MOTHER Ot R06.2 WHEEZING 07/14/2019 GERALD KETAN E [employer] MOTHER Ot F17.201 NICOTINE DEPENDENCE, UNSPECIFIED, IN REM 07/14/2019 MARYCHUY DUARTEINE Anmol [employer] C[employer] MOTHER Ot J44.9 CHRONIC OBSTRUCTIVE PULMONARY DISEASE, U 07/14/2019 MARYCHUY DUARTEINE E DAY CARE HOME MOTHER Ot R05 COUGH 07/14/2019 GERALD EKTAN E DAY C[employer] HOME MOTHER Ot R06.2 WHEEZING 07/14/2019 LULÚ MCKEON DO [...] FAC, ALI FACP CCDS Ot 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 [place] ARTERIES OF EXTRSalud W INTRMT 07/14/2019 JESSICA ALFORD FAC, ALI FACP CCDS Ot M06.9 RHEUMATOID ARTHRITIS, UNSPECIFIED 07/14/2019 JESSICA ALFORD [facility], ALI FACP CCDS Ot M79.89 OTHER SPECIFIED SOFT TISSUE DISORDERS 07/14/2019 JESSICA ALFORD [facility], ALI FACP CCDS Ot R07.89 OTHER CHEST PAIN 07/14/2019 JESSICA ALFORD [facility], ALI FACP CCDS Ot D63.8 ANEMIA IN OTHER CHRONIC DISEASES CLASSIF 07/14/2019 JESSICA ALFORD [facility], ALI FACP CCDS Ot I47.1 SUPRAVENTRICULAR TACHYCARDIA 07/14/2019 JESSICA ALFORD [facility], ALI FACP CCDS Ot 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 [place] ARTERIES OF EXTRSalud W INTRMT 07/14/2019 JESSICA ALFORD [facility], ALI FACP CCDS Ot M06.9 RHEUMATOID ARTHRITIS, UNSPECIFIED 07/14/2019 JESSICA ALFORD [facility], ALI FACP CCDS Ot M79.89 OTHER SPECIFIED SOFT TISSUE DISORDERS 07/14/2019 JESSICA ALFORD [facility], ALI FACP CCDS Ot R07.89 OTHER CHEST PAIN 07/14/2019 MARLENA HURTADO Ot E11.59 TYPE 2 DIABETES MELLITUS WITH OTH CIRCUL 07/14/2019 MARLENA HURTADO Ot F17.210 NICOTINE DEPENDENCE, CIGARETTES, UNCOMPL 07/14/2019 MARLENA HURTADO Ot F41.9 ANXIETY DISORDER, UNSPECIFIED 07/14/2019 MARLENA HURTADO Ot I47.1 SUPRAVENTRICULAR TACHYCARDIA 07/14/2019 MARLENA HURTADO Ot I65.23 OCCLUSION AND STENOSIS OF BILATERAL HERNANDEZ 07/14/2019 MARLENA HURTADO Ot 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 07/14/2019 GENESIS, MARLENA Castro Ot I80.209 PHLBTS AND THOMBOPHLB OF UNSP DEEP VESSE 07/14/2019 MARLENA HURTADO Gloria Ot J44.9 CHRONIC OBSTRUCTIVE PULMONARY DISEASE, U 07/14/2019 MARLENA HURTADO Gloria Ot Z79.899 OTHER REHABILITATION THERAPY AIDE (CURRENT) DRUG THERAPY 07/14/2019 JANEY ALFORD, GRETEL Brannon Ot A04.7 ENTEROCOLITIS DUE TO CLOSTRIDIUM DIFFICI 07/14/2019 KETAN DUARTE [employer] C[employer] MOTHER Ot R09.02 HYPOXEMIA 07/14/2019 KETAN DUARTE [employer] C[employer] MOTHER Ot R91.1 SOLITARY PULMONARY NODULE 07/14/2019 KETAN DUARTE APRN Ot Z72.0 TOBACCO USE 07/14/2019 LULÚ MCKEON DO Ot F41. 9 ANXIETY DISORDER, UNSPECIFIED 07/14/2019 LULÚ MCKEON DO Ot J43. 8 OTHER EMPHYSEMA 07/14/2019 LULÚ MCKEON DO Ot R06. 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820 PERIPHERAL VASCULAR ANGIOPLASTY STATUS W 07/14/2019 MARJORIE EDUARDO FAN MAIL EDITOR Ot I08.1 RHEUMATIC DISORDERS OF BOTH MITRAL AND T 07/14/2019 MARJORIE EDUARDO FAN MAIL EDITOR Ot I48.3 TYPICAL ATRIAL FLUTTER 07/14/2019 DAPHNE YUSUF FAN MAIL EDITOR Ot R59.0 LOCALIZED ENLARGED LYMPH NODES 07/14/2019 DAPHNE YUSUF FAN MAIL EDITOR Ot Z85.819 PRSNL HX OF MALIG NEOPLM OF [facility] SITE LI 07/14/2019 DAPHNE YUSUF FAN MAIL EDITOR Ot Z98.890 OTHER SPECIFIED POSTPROCEDURAL STATES 07/14/2019 DAPHNE YUSUF FAN MAIL EDITOR Ot R59.0 LOCALIZED ENLARGED LYMPH NODES 07/14/2019 DAPHNE YUSUF FAN MAIL EDITOR Ot Z98.890 OTHER SPECIFIED POSTPROCEDURAL STATES 07/14/2019 KETAN DUARTE APRN Ot G47.36 SLEEP RELATED HYPOVENTILATION IN CONDITI 07/14/2019 KETAN DUARTE APRN Ot I25.10 ATHSCL HEART DISEASE OF [place] CORONARY 07/14/2019 KETAN DUARTE APRN Ot J30.9 ALLERGIC RHINITIS, UNSPECIFIED 07/14/2019 GERALD, KETAN E [employer] MOTHER Ot J44.9 CHRONIC OBSTRUCTIVE PULMONARY DISEASE, U 07/14/2019 MARYCHUY DUARTEINE Anmol [employer] C[employer] MOTHER Ot K80.20 CALCULUS OF GALLBLADDER W/O CHOLECYSTITI 07/14/2019 MARYCHUY DUARTEINE E DAY CARE HOME MOTHER Ot R91.8 OTHER NONSPECIFIC ABNORMAL FINDING OF [place] 07/14/2019 MARYCHUY DUARTEINE E [employer] C[employer] HOME MOTHER Ot Z72.0 TOBACCO USE 07/14/2019 MARJORIE EDUARDO FAN MAIL EDITOR Ot I48.92 UNSPECIFIED ATRIAL FLUTTER 07/14/2019 JACINDA ALFORD, MARCUS Ot 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, ORAL 07/14/2019 DAPHNE YUSUF FAN MAIL EDITOR Ot I73.9 PERIPHERAL VASCULAR DISEASE, UNSPECIFIED 07/14/2019 NAM GASPAR FAN MAIL EDITOR Ot R06.02 SHORTNESS OF BREATH 07/14/2019 NAM GASPAR FAN MAIL EDITOR Ot R60.9 EDEMA, UNSPECIFIED 07/14/2019 JESSICA ALFORD FAC, AUGIE ELI CCDS Ot R06.02 SHORTNESS OF BREATH 07/14/2019 KETAN DUARTE [employer] C[employer] MOTHER Ot G47.9 SLEEP DISORDER, UNSPECIFIED 07/14/2019 MARYCHUY DUARTEINE E [employer] C[employer] HOME MOTHER Ot J44.9 CHRONIC OBSTRUCTIVE PULMONARY DISEASE, U 07/14/2019 MARYCHUY DUARTEINE E [employer] C[employer] HOME MOTHER Ot R05 COUGH 07/14/2019 MARYCHUY DUARTEINE E [employer] C[employer] HOME MOTHER Ot R06.2 WHEEZING 07/14/2019 GERALD KETAN E [employer] MOTHER Ot F17.201 NICOTINE DEPENDENCE, UNSPECIFIED, IN REM 07/14/2019 KETAN DUARTE [employer] C[employer] HOME MOTHER Ot J44.9 CHRONIC OBSTRUCTIVE PULMONARY DISEASE, U 07/14/2019 MARYCHUY DUARTEINE E [employer] C[employer] HOME MOTHER Ot R05 COUGH 07/14/2019 GERALD KETAN E [employer] C[employer] HOME MOTHER Ot R06.2 WHEEZING 07/14/2019 LULÚ MCKEON DO [...] FACC, ALI FACP CCDS Ot 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 07/14/2019 JESSICA [...] FACC, ALI FACP CCDS Ot 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 07/14/2019 JESSICA [...] 07/14/2019 MARLENA HURTADO Gloria Ot 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 07/14/2019 GENESIS MARLENA Gloria Ot I80.209 PHLBTS AND THOMBOPHLB OF UNSP DEEP VESSE 07/14/2019 MARLENA HURTADO Gloria Ot J44.9 CHRONIC OBSTRUCTIVE PULMONARY DISEASE, U 07/14/2019 MARLENA HURTADO Gloria Ot Z79.899 OTHER REHABILITATION THERAPY AIDE (CURRENT) DRUG THERAPY 07/14/2019 JANEY ALFORD, GRETEL [...] 07/14/2019 DAPHNE YUSUF Ot I70.203 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 07/14/2019 DAPHNE YUSUF Ot [...] ALFORD FACC, ALI FACP CCDS Ot Z79.01 REHABILITATION THERAPY AIDE (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 OF ANTICOAGULANT 07/14/2019 JESSICA ALFORD FACC, ALI FACP CCDS Ot Z79.82 USP (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 07/14/2019 JESSICA ALFORD FACC, AUGIE FACP CCDS Ot Z79.899 OTHER USP (CURRENT) DRUG THERAPY 07/14/2019 JESSICA ALFORD FACC, ALI FACP CCDS Ot Z86.718 PERSONAL HISTORY OF OTHER VENOUS THROMBO 07/14/2019 JESSICA ALFORD FACC, AUGIE FACP CCDS Ot Z87.891 PERSONAL HISTORY OF NICOTINE DEPENDENCE 07/14/2019 JESSICA ALFORD FACC, ALI FACP CCDS Ot Z95.820 PERIPHERAL VASCULAR ANGIOPLASTY STATUS W 07/14/2019 MARJORIE EDUARDO FAN MAIL EDITOR Ot I08.1 RHEUMATIC DISORDERS OF BOTH MITRAL AND T 07/14/2019 MARJORIE EDUARDO FAN MAIL EDITOR Ot I48.3 TYPICAL ATRIAL FLUTTER 07/14/2019 DAPHNE YUSUF FAN MAIL EDITOR Ot R59.0 LOCALIZED ENLARGED LYMPH NODES 07/14/2019 DAPHNE YUSUF FAN MAIL EDITOR Ot Z85.819 PRSNL HX OF MALIG NEOPLM OF [facility] SITE LI 07/14/2019 DAPHNE YUSUF FAN MAIL EDITOR Ot Z98.890 OTHER SPECIFIED POSTPROCEDURAL STATES 07/14/2019 DAPHNE YUSUF FAN MAIL EDITOR Ot R59.0 LOCALIZED ENLARGED LYMPH NODES 07/14/2019 DAPHNE YUSUF FAN MAIL EDITOR Ot Z98.890 OTHER SPECIFIED POSTPROCEDURAL STATES 07/14/2019 KETAN DUARTE APRN Ot G47.36 SLEEP RELATED HYPOVENTILATION IN CONDITI 07/14/2019 KETAN DUARTE APRN Ot I25.10 ATHSCL HEART DISEASE OF [place] CORONARY 07/14/2019 GERALD, KETAN E [employer] MOTHER Ot J30.9 ALLERGIC RHINITIS, UNSPECIFIED 07/14/2019 GERALD, KETAN E [employer] MOTHER Ot J44.9 CHRONIC OBSTRUCTIVE PULMONARY DISEASE, U 07/14/2019 MARYCHUY DUARTEINE E [employer] MOTHER Ot K80.20 CALCULUS OF GALLBLADDER W/O CHOLECYSTITI 07/14/2019 MARYCHUY DUARTEINE E [employer] MOTHER Ot R91.8 OTHER NONSPECIFIC ABNORMAL FINDING OF VICKIE 07/14/2019 MARYCHUY DUARTEINE E [employer] C[employer] MOTHER Ot Z72.0 TOBACCO USE 07/14/2019 MARJORIE EDUARDO FAN MAIL EDITOR Ot I48.92 UNSPECIFIED ATRIAL FLUTTER 07/14/2019 JACINDA ALFORD, MARCUS Ot 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, ORAL 07/19/2019 DAPHNE YUSUF FAN MAIL EDITOR Ot I73.9 PERIPHERAL VASCULAR DISEASE, UNSPECIFIED 07/19/2019 NAM GASPAR F[employer] MAIL EDITOR Ot R06.02 SHORTNESS OF BREATH 07/19/2019 NAM GASPAR FAN MAIL EDITOR Ot R60.9 EDEMA, UNSPECIFIED 07/19/2019 JESSICA ALFORD FAC, AUGIE GUALLPAP CCDS Ot R06.02 SHORTNESS OF BREATH 07/19/2019 MARYCHUY DUARTEINE E [employer] MOTHER Ot G47.9 SLEEP DISORDER, UNSPECIFIED 07/19/2019 MARYCHUY DUARTEINE E [employer] MOTHER Ot J44.9 CHRONIC OBSTRUCTIVE PULMONARY DISEASE, U 07/19/2019 GERALD, KETAN E [employer] MOTHER Ot R05 COUGH 07/19/2019 GERALD, KETAN E [employer] MOTHER Ot R06.2 WHEEZING 07/19/2019 GERALD, KETAN E [employer] MOTHER Ot F17.201 NICOTINE DEPENDENCE, UNSPECIFIED, IN REM 07/19/2019 MARYCHUY DUARTEINE E [employer] C[employer] HOME MOTHER Ot J44.9 CHRONIC OBSTRUCTIVE PULMONARY DISEASE, U 07/19/2019 GERALD KETAN E [employer] MOTHER Ot R05 COUGH 07/19/2019 GERALD KETAN E [employer] MOTHER Ot R06.2 WHEEZING 07/19/2019 LULÚ MCKEON DO [...] FACC, ALI FACP CCDS Ot 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 07/19/2019 JESSICA [...] FACC, ALI FACP CCDS Ot 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 07/19/2019 JESSICA [...] BILATERAL HERNANDEZ 07/19/2019 GENESISMARLENA Ot 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 07/19/2019 GENESISMARLENA Ot I80.209 PHLBTS AND THOMBOPHLB OF UNSP DEEP VESSE 07/19/2019 GENESISMARLENA Ot J44.9 CHRONIC OBSTRUCTIVE PULMONARY DISEASE, U 07/19/2019 GENESISMARLENA Ot Z79.899 OTHER USP (CURRENT) DRUG THERAPY 07/19/2019 JANEY ALFORD, GRETEL [...] 07/19/2019 DAPHNE YUSUF Ot I70.203 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 07/19/2019 DAPHNE YUSUF Ot [...] CHRONIC OBSTRUCTIVE PULMONARY DISEASE, U 07/19/2019 JESSICA ALOFRD [facility], ALI FACP CCDS Ot R00.2 PALPITATIONS 07/19/2019 JESSICA ALFORD [facility], ALI FACP CCDS Ot Z68.31 BODY MASS INDEX (BMI) 31.0-31.9, ADULT 07/19/2019 JESSICA ALFORD [facility], ALI FACP CCDS Ot Z79.01 USP (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 OF ANTICOAGULANT 07/19/2019 JESSICA ALFORD [facility], ALI FACP CCDS Ot Z79.82 USP (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 07/19/2019 JESSICA ALFORD [facility], ALI FACP CCDS Ot Z79.899 OTHER USP (CURRENT) DRUG THERAPY 07/19/2019 JESSICA GUALLPA, ALI FACP CCDS Ot Z86.718 PERSONAL HISTORY OF OTHER VENOUS THROMBO 07/19/2019 JESSICA ALFORD [facility], ALI FACP CCDS Ot Z87.891 PERSONAL HISTORY OF NICOTINE DEPENDENCE 07/19/2019 JESSICA ALFORD [facility], ALI FACP CCDS Ot Z95.820 PERIPHERAL VASCULAR ANGIOPLASTY STATUS W 07/19/2019 MARJORIE EDUARDO FAN MAIL EDITOR Ot I08.1 RHEUMATIC DISORDERS OF BOTH MITRAL AND T 07/19/2019 MARJORIE EDUARDO [employer] MAIL EDITOR Ot I48.3 TYPICAL ATRIAL FLUTTER 07/19/2019 DAPHNE YUSUF [employer] MA[employer] EDITOR Ot R59.0 LOCALIZED ENLARGED LYMPH NODES 07/19/2019 DAPHNE YUSUF [employer] MAIL EDITOR Ot Z85.819 PRSNL HX OF MALIG NEOPLM OF [facility] SITE LI 07/19/2019 DAPHNE YUSUF [employer] MAIL EDITOR Ot Z98.890 OTHER SPECIFIED POSTPROCEDURAL STATES 07/19/2019 DAPHNE YUSUF [employer] MAIL EDITOR Ot R59.0 LOCALIZED ENLARGED LYMPH NODES 07/19/2019 DAPHNE YUSUF [employer] MAIL EDITOR Ot Z98.890 OTHER SPECIFIED POSTPROCEDURAL STATES 07/19/2019 KETAN DUARTE APRN Ot G47.36 SLEEP RELATED HYPOVENTILATION IN CONDITI 07/19/2019 GERALD, KETAN E [employer] MOTHER Ot I25.10 ATHSCL HEART DISEASE OF [place] CORONARY 07/19/2019 MARYCHUY DUARTEINE E [employer] MOTHER Ot J30.9 ALLERGIC RHINITIS, UNSPECIFIED 07/19/2019 MARYCHUY DUARTEINE E [employer] MOTHER Ot J44.9 CHRONIC OBSTRUCTIVE PULMONARY DISEASE, U 07/19/2019 MARYCHUY DUARTEINE Anmol [employer] MOTHER Ot K80.20 CALCULUS OF GALLBLADDER W/O CHOLECYSTITI 07/19/2019 MARYCHUY DUARTEINE E [employer] MOTHER Ot R91.8 OTHER NONSPECIFIC ABNORMAL FINDING OF VICK[place] 07/19/2019 MARYCHUY DUARTEINE E [employer] MOTHER Ot Z72.0 TOBACCO USE 07/19/2019 MARJORIE EDUARDO [employer] EDITOR Ot I48.92 UNSPECIFIED ATRIAL FLUTTER 07/19/2019 JACINDA ALFORD, MARCUS Ot 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, ORAL 07/19/2019 JACINDA ALFORD, MARCUS Ot 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, ORAL 07/19/2019 DAPHNE YUSUF [employer] EDITOR Ot I73.9 PERIPHERAL VASCULAR DISEASE, UNSPECIFIED 07/19/2019 NAM GASPAR [employer] MAIL EDITOR Ot R06.02 SHORTNESS OF BREATH 07/19/2019 NAM GASPAR [employer] MAIL EDITOR Ot R60.9 EDEMA, UNSPECIFIED 07/19/2019 JESSICA ALFORD FAC, AUGIE ELI CCDS Ot R06.02 SHORTNESS OF BREATH 07/19/2019 KETAN DUARTE [employer] MOTHER Ot G47.9 SLEEP DISORDER, UNSPECIFIED 07/19/2019 MARYCHUY DUARTEINE E [employer] MOTHER Ot J44.9 CHRONIC OBSTRUCTIVE PULMONARY DISEASE, U 07/19/2019 MARYCHUY DUARTEINE E [employer] C[employer] MOTHER Ot R05 COUGH 07/19/2019 MARYCHUY DUARTEINE E [employer] MOTHER Ot R06.2 WHEEZING 07/19/2019 GERALD, KETAN E [employer] MOTHER Ot F17.201 NICOTINE DEPENDENCE, UNSPECIFIED, IN REM 07/19/2019 KETAN DUARTE [employer] MOTHER Ot J44.9 CHRONIC OBSTRUCTIVE PULMONARY DISEASE, U 07/19/2019 MARYCHUY DUARTEINE E [employer] MOTHER Ot R05 COUGH 07/19/2019 GERALD, KETAN E [employer] MOTHER Ot R06.2 WHEEZING 07/19/2019 LULÚ MCKEON DO [...] FACC, ALI FACP CCDS Ot 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 07/19/2019 JESSICA [...] FACC, ALI FACP CCDS Ot 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 07/19/2019 JESSICA [...] 07/19/2019 GENESIS NEOTRI Gloria Ot 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 07/19/2019 MARLENA UHRTADO Gloria Ot I80.209 [facility] D[facility] 07/19/2019 MARLENA HURTADO Gloria Ot J44.9 CHRONIC OBSTRUCTIVE PULMONARY DISEASE, U 07/19/2019 MARLENA HURTADO Gloria Ot Z79.899 OTHER USP (CURRENT) DRUG THERAPY 07/19/2019 JANYE ALFORD, GRETEL Brannon Ot A04.7 ENTEROCOLITIS DUE [...] 07/19/2019 DAPHNE YUSUF Ot I70.203 UNS 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 07/19/2019 DAPHNE YUSUF Ot 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 PERFORATION OR AB 07/19/2019 ADELE ANN Ot R13.1 2 DYSPHAGIA, OROPHARYNGEAL PHASE 07/19/2019 JESSICA ALFORD FACC, AUGIE FACP CCDS Ot E11.9 TYPE 2 DIABETES MELLITUS WITHOUT COMPLIC 07/19/2019 JESSICA ALFORD FACJude, AUGIE FACP CCDS Ot E66.9 OBESITY, UNSPECIFIED 07/19/2019 JESSICA ALFORD [facility], ALI FACP CCDS Ot I69.322 DYSARTHRIA FOLLOWING CEREBRAL INFARCTION 07/19/2019 JESSICA ALFORD [facility], ALI FACP CCDS Ot I69.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 FOLLOWING CEREBRAL INFRC AFF RI 07/19/2019 JESSICA ALFORD [facility], ALI FACP CCDS Ot I73.9 PERIPHERAL VASCULAR DISEASE, UNSPECIFIED 07/19/2019 JESSICA ALFORD [facility], ALI FACP CCDS Ot J44.9 CHRONIC OBSTRUCTIVE PULMONARY DISEASE, U 07/19/2019 JESSICA ALFORD [facility], ALI FACP CCDS Ot R00.2 PALPITATIONS 07/19/2019 JESSICA ALFORD [facility], ALI FACP CCDS Ot Z68.31 BODY MASS INDEX (BMI) 31.0-31.9, ADULT 07/19/2019 JESSICA ALFORD [facility], ALI FACP CCDS Ot Z79.01 USP (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 OF ANTICOAGULANT 07/19/2019 JESSICA ALFORD [facility], ALI FACP CCDS Ot Z79.82 USP (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 07/19/2019 JESSICA ALFORD [facility], ALI FACP CCDS Ot Z79.899 OTHER REHABILITATION THERAPY AIDE (CURRENT) DRUG THERAPY 07/19/2019 JESSICA ALFORD [facility], ALI FACP CCDS Ot Z86.718 PERSONAL HISTORY OF OTHER VENOUS THROMBO 07/19/2019 JESSICA ALFORD [facility], ALI FACP CCDS Ot Z87.891 PERSONAL HISTORY OF NICOTINE DEPENDENCE 07/19/2019 JESSICA ALFORD [facility], ALI FACP CCDS Ot Z95.820 PERIPHERAL VASCULAR ANGIOPLASTY STATUS W 07/19/2019 MARJORIE EDUARDO F[employer] MAIL EDITOR Ot I08.1 RHEUMATIC DISORDERS OF BOTH MITRAL AND T 07/19/2019 MARJORIE EDUARDO F[employer] MAIL EDITOR Ot I48.3 TYPICAL ATRIAL FLUTTER 07/19/2019 DAPHNE YUSUF F[employer] MAIL EDITOR Ot R59.0 LOCALIZED ENLARGED LYMPH NODES 07/19/2019 DAPHNE YUSUF Ot Z85.819 PRSNL HX OF MALIG NEOPLM OF [facility] SITE LI 07/19/2019 DAPHNE YUSUF F[employer] MAIL EDITOR Ot Z98.890 OTHER SPECIFIED POSTPROCEDURAL STATES 07/19/2019 DAPHNE YUSUF FAN MAIL EDITOR Ot R59.0 LOCALIZED ENLARGED LYMPH NODES 07/19/2019 DAPHNE YUSUF FAN MAIL EDITOR Ot Z98.890 OTHER SPECIFIED POSTPROCEDURAL STATES 07/19/2019 KETAN DUARTE [employer] Ot G47.36 SLEEP RELATED HYPOVENTILATION IN CONDITI 07/19/2019 GERALD KETAN E [employer]HER Ot I25.10 ATHSCL HEART DISEASE OF [place] CORONARY 07/19/2019 MARYCHUY DUARTEINE E [employer]HER Ot J30.9 ALLERGIC RHINITIS, UNSPECIFIED 07/19/2019 MARYCHUY DUARTEINE E [employer]HER Ot J44.9 CHRONIC OBSTRUCTIVE PULMONARY DISEASE, U 07/19/2019 MARYCHUY DUARTEINE E [employer]HER Ot K80.20 CALCULUS OF GALLBLADDER W/O CHOLECYSTITI 07/19/2019 MARYCHUY DUARTEINE E [employer]HER Ot R91.8 OTHER NONSPECIFIC ABNORMAL FINDING OF VICKIE 07/19/2019 KETAN DUARTE E [employer]HER Ot Z72.0 TOBACCO USE 07/19/2019 MARJORIE EDUARDO [employer] MAIL EDITOR Ot I48.92 UNSPECIFIED ATRIAL FLUTTER 07/19/2019 JACINDA ALFORD, MARCUS Ot 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, ORAL 08/01/2019 DAPHNE YUSUF F[employer] MAIL EDITOR Ot I73.9 PERIPHERAL VASCULAR DISEASE, UNSPECIFIED 08/01/2019 NAM GASPAR F[employer] MAIL EDITOR Ot R06.02 SHORTNESS OF BREATH 08/01/2019 NAM GASPAR [employer] MAIL EDITOR Ot R60.9 EDEMA, UNSPECIFIED 08/01/2019 JESSICA ALFORD FAC, AUGIE FACP CCDS Ot R06.02 SHORTNESS OF BREATH 08/01/2019 KETAN DUARTE E [employer] MOTHER Ot G47.9 SLEEP DISORDER, UNSPECIFIED 08/01/2019 MARYCHUY DUARTEINE E [employer] MOTHER Ot J44.9 CHRONIC OBSTRUCTIVE PULMONARY DISEASE, U 08/01/2019 MARYCHUY DUARTEINE E [employer] MOTHER Ot R05 COUGH 08/01/2019 GERALD KETAN E [employer] MOTHER Ot R06.2 WHEEZING 08/01/2019 GERALD KETAN E [employer] MOTHER Ot F17.201 NICOTINE DEPENDENCE, UNSPECIFIED, IN REM 08/01/2019 KETAN DUARTE E [employer] MOTHER Ot J44.9 CHRONIC OBSTRUCTIVE PULMONARY DISEASE, U 08/01/2019 MARYCHUY DUARTEINE E [employer] MOTHER Ot R05 COUGH 08/01/2019 KETAN DUARTE APRN [...] FACC, ALI FACP CCDS Ot 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 08/01/2019 EJSSICA ALFORD FACC, ALI FACP CCDS Ot M06.9 [...] FACC, ALI FACP CCDS Ot 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 08/01/2019 JESSICA [...] BILATERAL HERNANDEZ 08/01/2019 GENESISMARLENA Ot 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 08/01/2019 GENESISMARLENA Ot I80.209 PHLBTS AND THOMBOPHLB OF UNSP DEEP VESSE 08/01/2019 GENESISMARLENA Ot J44.9 CHRONIC OBSTRUCTIVE PULMONARY DISEASE, U 08/01/2019 GENESISMARLENA Ot Z79.899 OTHER USP (CURRENT) DRUG THERAPY 08/01/2019 JANEY ALFORD, GRETEL [...] 08/01/2019 DAPHNE YUSUF Ot I70.203 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 08/01/2019 DAPHNE YUSUF FAN MAIL EDITOR Ot 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 PERFORATION OR AB 08/01/2019 ADELE ANN Ot R13.1 2 DYSPHAGIA, OROPHARYNGEAL PHASE 08/01/2019 JESSICA ALFORD FAC, ALI FACP CCDS Ot E11.9 TYPE 2 DIABETES MELLITUS WITHOUT COMPLIC 08/01/2019 JESSICA ALFORD [facility], ALI FACP CCDS Ot E66.9 OBESITY, UNSPECIFIED 08/01/2019 JESSICA ALFORD [facility], ALI FACP CCDS Ot I69.322 DYSARTHRIA FOLLOWING CEREBRAL INFARCTION 08/01/2019 JESSICA ALFORD [facility], ALI FACP CCDS Ot I69.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 FOLLOWING CEREBRAL INFRC AFF RI 08/01/2019 JESSICA ALFORD [facility], ALI FACP CCDS Ot I73.9 PERIPHERAL VASCULAR DISEASE, UNSPECIFIED 08/01/2019 JESSICA ALFORD [facility], ALI FACP CCDS Ot J44.9 CHRONIC OBSTRUCTIVE PULMONARY DISEASE, U 08/01/2019 JESSICA ALFORD [facility], ALI FACP CCDS Ot R00.2 PALPITATIONS 08/01/2019 JESSICA ALFORD [facility], ALI FACP CCDS Ot Z68.31 BODY MASS INDEX (BMI) 31.0-31.9, ADULT 08/01/2019 JESSICA ALFORD [facility], ALI FACP CCDS Ot Z79.01 REHABILITATION THERAPY AIDE (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 OF ANTICOAGULANT 08/01/2019 JESSICA ALFORD [facility], ALI FACP CCDS Ot Z79.82 USP (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 08/01/2019 JESSICA ALFORD [facility], ALI FACP CCDS Ot Z79.899 OTHER REHABILITATION THERAPY AIDE (CURRENT) DRUG THERAPY 08/01/2019 JESSICA ALFORD [facility], ALI FACP CCDS Ot Z86.718 PERSONAL HISTORY OF OTHER VENOUS THROMBO 08/01/2019 JESSICA ALFORD [facility], ALI FACP CCDS Ot Z87.891 PERSONAL HISTORY OF NICOTINE DEPENDENCE 08/01/2019 JESSICA ALFORD [facility], ALI FACP CCDS Ot Z95.820 PERIPHERAL VASCULAR ANGIOPLASTY STATUS W 08/01/2019 MARJORIE EDUARDO FAN MAIL EDITOR Ot I08.1 RHEUMATIC DISORDERS OF BOTH MITRAL AND T 08/01/2019 MARJORIE EDUARDO FAN MAIL EDITOR Ot I48.3 TYPICAL ATRIAL FLUTTER 08/01/2019 DAPHNE YUSUF FAN MAIL EDITOR Ot R59.0 LOCALIZED ENLARGED LYMPH NODES 08/01/2019 DAPHNE YUSUF FAN MAIL EDITOR Ot Z85.819 PRSNL HX OF [facility] SITE [facility] 08/01/2019 DAPHNE YUSUF FAN MAIL EDITOR Ot Z98.890 OTHER SPECIFIED POSTPROCEDURAL STATES 08/01/2019 DAPHNE YUSUF FAN MAIL EDITOR Ot R59.0 LOCALIZED ENLARGED LYMPH NODES 08/01/2019 DAPHNE YUSUF FAN MAIL EDITOR Ot Z98.890 OTHER SPECIFIED POSTPROCEDURAL STATES 08/01/2019 MARYCHUY DUARTEINE E [employer] MOTHER Ot G47.36 SLEEP RELATED HYPOVENTILATION IN CONDITI 08/01/2019 GERALD KETAN E [employer] MOTHER Ot I25.10 ATHSCL HEART DISEASE OF [place] CORONARY 08/01/2019 MARYCHUY DUARTEINE E [employer] MOTHER Ot J30.9 ALLERGIC RHINITIS, UNSPECIFIED 08/01/2019 MARYCHUY DUARTEINE E [employer] MOTHER Ot J44.9 CHRONIC OBSTRUCTIVE PULMONARY DISEASE, U 08/01/2019 MARYCHUY DUARTEINE E [employer] MOTHER Ot K80.20 CALCULUS OF GALLBLADDER W/O CHOLECYSTITI 08/01/2019 GERALD KETAN E [employer] MOTHER Ot R91.8 OTHER NONSPECIFIC ABNORMAL FINDING OF VICK[place] 08/01/2019 KETAN DUARTE E [employer] MOTHER Ot Z72.0 TOBACCO USE 08/01/2019 MARJORIE EDUARDO FAN MAIL EDITOR Ot I48.92 UNSPECIFIED ATRIAL FLUTTER 08/01/2019 JACINDA ALFORD, MARCUS Ot 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, ORAL 08/01/2019 DAPHNE YUSUF FAN MAIL EDITOR Ot I73.9 PERIPHERAL VASCULAR DISEASE, UNSPECIFIED 08/01/2019 NAM GASPAR F[employer] MAIL EDITOR Ot R06.02 SHORTNESS OF BREATH 08/01/2019 NAM GASPAR F[employer] MAIL EDITOR Ot R60.9 EDEMA, UNSPECIFIED 08/01/2019 JESSICA ALFORD FAC, AUGIE FACP CCDS Ot R06.02 SHORTNESS OF BREATH 08/01/2019 MARYCHUY DUARTEINE E [employer] MOTHER Ot G47.9 SLEEP DISORDER, UNSPECIFIED 08/01/2019 MARYCHUY DUARTEINE E [employer] MOTHER Ot J44.9 CHRONIC OBSTRUCTIVE PULMONARY DISEASE, U 08/01/2019 MARYCHUY DUARTEINE E [employer] MOTHER Ot R05 COUGH 08/01/2019 GERALD KETAN E [employer] MOTHER Ot R06.2 WHEEZING 08/01/2019 GERALD KETAN E [employer] MOTHER Ot F17.201 NICOTINE DEPENDENCE, UNSPECIFIED, IN REM 08/01/2019 MARYCHUY DUARTEINE E [employer] MOTHER Ot J44.9 CHRONIC OBSTRUCTIVE PULMONARY DISEASE, U [...] FACC, ALI FACP CCDS Ot 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 08/01/2019 JESSICA [...] FACC, ALI FACP CCDS Ot 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 08/01/2019 JESSICA ALFORD FACC, ALI FACP CCDS Ot M06.9 RHEUMATOID ARTHRITIS, UNSPECIFIED 08/01/2019 JESSICA ALFORD FACC, ALI FACP CCDS Ot M79.89 OTHER SPECIFIED SOFT TISSUE DISORDERS 08/01/2019 JESSICA ALFORD FAC, ALI [facility] CCDS Ot R07.89 OTHER CHEST PAIN 08/01/2019 GENESISMARLENA Ot E11.59 TYPE 2 DIABETES MELLITUS WITH OTH CIRCUL 08/01/2019 GENESISMARLENA Ot F17.210 NICOTINE DEPENDENCE, CIGARETTES, UNCOMPL 08/01/2019 GENESISMARLENA Ot F41.9 ANXIETY DISORDER, UNSPECIFIED 08/01/2019 GENESISMARLENA Ot I47.1 SUPRAVENTRICULAR TACHYCARDIA 08/01/2019 GENESISMARLENA Ot I65.23 OCCLUSION AND STENOSIS OF BILATERAL HERNANDEZ 08/01/2019 GENESISMARLENA Ot 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 08/01/2019 GENESISMARLENA Ot I80.209 PHLBTS AND THOMBOPHLB OF [facility] DEEP VESSE 08/01/2019 GENESISMARLENA Ot J44.9 CHRONIC OBSTRUCTIVE PULMONARY DISEASE, U 08/01/2019 GENESISMARLENA Ot Z79.899 OTHER REHABILITATION THERAPY AIDE (CURRENT) DRUG THERAPY 08/01/2019 JANEY ALFORD, GRETEL Brannon Ot A04.7 ENTEROCOLITIS DUE TO CLOSTRIDIUM DIFFICI 08/01/2019 KTEAN DUARTE APRN Ot R09.02 HYPOXEMIA 08/01/2019 KETAN [...] 08/01/2019 DAPHNE YUSUF Ot I70.203 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 08/01/2019 DAPHNE YUSUF Ot 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 PERFORATION OR AB 08/01/2019 ROMERO PA, ADELE L Ot R13.1 2 DYSPHAGIA, OROPHARYNGEAL PHASE 08/01/2019 JESSICA ALFORD [facility], ALI FACP CCDS Ot E11.9 TYPE 2 DIABETES MELLITUS WITHOUT COMPLIC 08/01/2019 JESSICA ALFORD [facility], ALI FACP CCDS Ot E66.9 OBESITY, UNSPECIFIED 08/01/2019 JESSICA ALFORD [facility], ALI FACP CCDS Ot I69.322 DYSARTHRIA FOLLOWING CEREBRAL INFARCTION 08/01/2019 JESSICA [facility], ALI FACP CCDS Ot I69.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 FOLLOWING CEREBRAL INFRC AFF RI 08/01/2019 JESSICA [facility], ALI FACP CCDS Ot I73.9 PERIPHERAL VASCULAR DISEASE, UNSPECIFIED 08/01/2019 JESSICA [facility], ALI FACP CCDS Ot J44.9 CHRONIC OBSTRUCTIVE PULMONARY DISEASE, U 08/01/2019 JESSICA ALFORD [facility], ALI FACP CCDS Ot R00.2 PALPITATIONS 08/01/2019 JESSICA ALFORD [facility], ALI FACP CCDS Ot Z68.31 BODY MASS INDEX (BMI) 31.0-31.9, ADULT 08/01/2019 JESSICA ALFORD [facility], ALI FACP CCDS Ot Z79.01 REHABILITATION THERAPY AIDE (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 OF ANTICOAGULANT 08/01/2019 JESSICA ALFORD [facility], ALI FACP CCDS Ot Z79.82 REHABILITATION THERAPY AIDE (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 08/01/2019 JESSICA ALFORD [facility], ALI FACP CCDS Ot Z79.899 OTHER USP (CURRENT) DRUG THERAPY 08/01/2019 JESSICA ALFORD [facility], ALI FACP CCDS Ot Z86.718 PERSONAL HISTORY OF OTHER VENOUS THROMBO 08/01/2019 JESSICA ALFORD [facility], ALI FACP CCDS Ot Z87.891 PERSONAL HISTORY OF NICOTINE DEPENDENCE 08/01/2019 JESSICA ALFORD [facility], ALI FACP CCDS Ot Z95.820 PERIPHERAL VASCULAR ANGIOPLASTY STATUS W 08/01/2019 MARJORIE EDUARDO FAN MAIL EDITOR Ot I08.1 RHEUMATIC DISORDERS OF BOTH MITRAL AND T 08/01/2019 MARJORIE EDUARDO FAN MAIL EDITOR Ot I48.3 TYPICAL ATRIAL FLUTTER 08/01/2019 DAPHNE YUSUF FAN MAIL EDITOR Ot R59.0 LOCALIZED ENLARGED LYMPH NODES 08/01/2019 DAPHNE YUSUF FAN MAIL EDITOR Ot Z85.819 PRSNL HX OF MALIG NE[facility]LM OF [facility] SITE LI 08/01/2019 DAPHNE YUSUF FAN MAIL EDITOR Ot Z98.890 OTHER SPECIFIED POSTPROCEDURAL STATES 08/01/2019 DAPHNE YUSUF FAN MAIL EDITOR Ot R59.0 LOCALIZED ENLARGED LYMPH NODES 08/01/2019 DAPHNE YUSUF FAN MAIL EDITOR Ot Z98.890 OTHER SPECIFIED POSTPROCEDURAL STATES 08/01/2019 KETAN DUARTE [employer] MOTHER Ot G47.36 SLEEP RELATED HYPOVENTILATION IN CONDITI 08/01/2019 GERALD KETAN E [employer] MOTHER Ot I25.10 ATHSCL HEART DISEASE OF [place] CORONARY 08/01/2019 MARYCHUY DUARTEINE Anmol [employer] C[employer] MOTHER Ot J30.9 ALLERGIC RHINITIS, UNSPECIFIED 08/01/2019 KETAN DUARTE [employer] MOTHER Ot J44.9 CHRONIC OBSTRUCTIVE PULMONARY DISEASE, U 08/01/2019 KETAN DUARTE [employer] MOTHER Ot K80.20 CALCULUS OF GALLBLADDER W/O CHOLECYSTITI 08/01/2019 MARYCHUY DUARTEINE E [employer] MOTHER Ot R91.8 OTHER NONSPECIFIC ABNORMAL FINDING OF VICKIE 08/01/2019 KETAN DUARTE [employer] MOTHER Ot Z72.0 TOBACCO USE 08/01/2019 MARJORIE EDUARDO FAN MAIL EDITOR Ot I48.92 UNSPECIFIED ATRIAL FLUTTER 08/01/2019 JACINDA ALFORD, MARCUS Ot 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, ORAL 08/01/2019 DAPHNE YUSUF FAN MAIL EDITOR Ot I73.9 PERIPHERAL VASCULAR DISEASE, UNSPECIFIED 08/01/2019 NAM GASPAR FAN MAIL EDITOR Ot R06.02 SHORTNESS OF BREATH 08/01/2019 NAM GASPAR FAN MAIL EDITOR Ot R60.9 EDEMA, UNSPECIFIED 08/01/2019 JESSICA ALFORD FAC, AUGIE GUALLPAP CCDS Ot R06.02 SHORTNESS OF BREATH 08/01/2019 KETAN DUARTE [employer] MOTHER Ot G47.9 SLEEP DISORDER, UNSPECIFIED 08/01/2019 KETAN DUARTE [employer] MOTHER Ot J44.9 CHRONIC OBSTRUCTIVE PULMONARY DISEASE, U 08/01/2019 KETAN DUARTE [employer] MOTHER Ot R05 COUGH 08/01/2019 KETAN DUARTE [employer] MOTHER Ot R06.2 WHEEZING 08/01/2019 KETAN DUARTE E [employer] MOTHER Ot F17.201 NICOTINE DEPENDENCE, UNSPECIFIED, IN REM 08/01/2019 GERALD, KETAN [employer] C[employer] MOTHER Ot J44.9 CHRONIC OBSTRUCTIVE PULMONARY DISEASE, U 08/01/2019 KETAN DUARTE [employer] MOTHER Ot R05 COUGH 08/01/2019 KETAN DUARTE [employer] MOTHER Ot R06.2 WHEEZING 08/01/2019 LULÚ MCKEON DO [...] FACC, ALI FACP CCDS Ot 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 08/01/2019 JESSICA [...] GUALLPAC, ALI FACP CCDS Ot 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 08/01/2019 [facility] Ot M06.9 RHEUMATOID ARTHRITIS, UNSPECIFIED 08/01/2019 JESSICA ALFORD [facility], [facility] CCD[facility] Ot M79.89 OTHER SPECIFIED SOFT TISSUE DISORDERS 08/01/2019 JESSICA ALFORD [facility], ALI [facility] CCDS Ot R07.89 OTHER CHEST PAIN 08/01/2019 GENESISMARLENA Ot E11.59 TYPE 2 DIABETES MELLITUS WITH OTH CIRCUL 08/01/2019 MARLENA HURTADO Ot F17.210 NICOTINE DEPENDENCE, CIGARETTES, UNCOMPL 08/01/2019 GENESISMARLENA Ot F41.9 ANXIETY DISORDER, UNSPECIFIED 08/01/2019 GENESISMARLENA Ot I47.1 SUPRAVENTRICULAR TACHYCARDIA 08/01/2019 MARLENA HURTADO Ot I65.23 OCCLUSION AND STENOSIS OF BILATERAL HERNANDEZ 08/01/2019 MARLENA HURTADO Ot 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 08/01/2019 MARLENA HURTADO Ot I80.209 PHLBTS AND THOMBOPHLB OF [facility] DEEP VESSE 08/01/2019 MARLENA HURTADO Ot J44.9 CHRONIC OBSTRUCTIVE PULMONARY DISEASE, U 08/01/2019 GENESISMARLENA Ot Z79.899 OTHER USP (CURRENT) DRUG THERAPY 08/01/2019 JANEY ALFORD, GRETEL [...] 08/01/2019 DAPHNE YUSUF Ot I70.203 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 08/01/2019 DAPHNE YUSUFP Ot 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 PERFORATION OR AB 08/01/2019 ADELE ANN Ot R13.1 2 DYSPHAGIA, OROPHARYNGEAL PHASE 08/01/2019 JESSICA ALFORD [facility], ALI FACP CCDS Ot E11.9 TYPE 2 DIABETES MELLITUS WITHOUT COMPLIC 08/01/2019 JESSICA ALFORD [facility], ALI FACP CCDS Ot E66.9 OBESITY, UNSPECIFIED 08/01/2019 JESSICA ALFORD [facility], ALI FACP CCDS Ot I69.322 DYSARTHRIA FOLLOWING CEREBRAL INFARCTION 08/01/2019 JESSICA ALFORD [facility], ALI FACP CCDS Ot I69.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 FOLLOWING CEREBRAL INFRC AFF RI 08/01/2019 JESSICA ALFORD [facility], ALI FACP CCDS Ot I73.9 PERIPHERAL VASCULAR DISEASE, UNSPECIFIED 08/01/2019 JESSICA ALFORD [facility], ALI FACP CCDS Ot J44.9 CHRONIC OBSTRUCTIVE PULMONARY DISEASE, U 08/01/2019 JESSICA ALFORD [facility], ALI FACP CCDS Ot R00.2 PALPITATIONS 08/01/2019 JESSICA ALFORD [facility], ALI FACP CCDS Ot Z68.31 BODY MASS INDEX (BMI) 31.0-31.9, ADULT 08/01/2019 JESSICA ALFROD [facility], ALI FACP CCDS Ot Z79.01 REHABILITATION THERAPY AIDE (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 OF ANTICOAGULANT 08/01/2019 JESSICA ALFORD [facility], ALI FACP CCDS Ot Z79.82 USP (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 08/01/2019 JESSICA ALFORD [facility], ALI FACP CCDS Ot Z79.899 OTHER USP (CURRENT) DRUG THERAPY 08/01/2019 JESSICA ALFORD [facility], ALI FACP CCDS Ot Z86.718 PERSONAL HISTORY OF OTHER VENOUS THROMBO 08/01/2019 JESSICA ALFORD [facility], ALI FACP CCDS Ot Z87.891 PERSONAL HISTORY OF NICOTINE DEPENDENCE 08/01/2019 JESSICA ALFORD [facility], ALI FACP CCDS Ot Z95.820 PERIPHERAL VASCULAR ANGIOPLASTY STATUS W 08/01/2019 MARJORIE EDUARDO FAN MAIL EDITOR Ot I08.1 RHEUMATIC DISORDERS OF BOTH MITR[place] AND T 08/01/2019 MARJORIE EDUARDO FAN MAIL EDITOR Ot I48.3 TYPICAL ATRIAL FLUTTER 08/01/2019 DAPHNE YUSUF FAN MAIL EDITOR Ot R59.0 LOCALIZED ENLARGED LYMPH NODES 08/01/2019 DAPHNE YUSUF FAN MAIL EDITOR Ot Z85.819 PRSNL HX OF MALIG NEOPLM OF [facility] SITE LI 08/01/2019 DAPHNE YUSUF FAN MAIL EDITOR Ot Z98.890 OTHER SPECIFIED POSTPROCEDURAL STATES 08/01/2019 DAPHNE YUSUF FAN MAIL EDITOR Ot R59.0 LOCALIZED ENLARGED LYMPH NODES 08/01/2019 DAPHNE YUSUF FAN MAIL EDITOR Ot Z98.890 OTHER SPECIFIED POSTPROCEDURAL STATES 08/01/2019 KETAN DUARTE [employer] MOTHER Ot G47.36 SLEEP RELATED HYPOVENTILATION IN CONDITI 08/01/2019 MARYCHUY DUARTEINE E [employer] MOTHER Ot I25.10 ATHSCL HEART DISEASE OF [place] CORONARY 08/01/2019 KETAN DUARTE [employer] MOTHER Ot J30.9 ALLERGIC RHINITIS, UNSPECIFIED 08/01/2019 KETAN DUARTE [employer] MOTHER Ot J44.9 CHRONIC OBSTRUCTIVE PULMONARY DISEASE, U 08/01/2019 KETAN DUARTE [employer] MOTHER Ot K80.20 CALCULUS OF GALLBLADDER W/O CHOLECYSTITI 08/01/2019 KETAN DUARTE [employer] MOTHER Ot R91.8 OTHER NONSPECIFIC ABNORMAL FINDING OF VICKIE 08/01/2019 KETAN DUARTE [employer] MOTHER Ot Z72.0 TOBACCO USE 08/01/2019 MARJORIE EDUARDO FAN MAIL EDITOR Ot I48.92 UNSPECIFIED ATRIAL FLUTTER 08/01/2019 DAPHNE YUSUF FAN MAIL EDITOR Ot I73.9 PERIPHERAL VASCULAR DISEASE, UNSPECIFIED 08/01/2019 NAM GASPAR F[employer] MAIL EDITOR Ot R06.02 SHORTNESS OF BREATH 08/01/2019 NAM GASPAR F[employer] MAIL EDITOR Ot R60.9 EDEMA, UNSPECIFIED 08/01/2019 JESSICA ALFORD FACC, AUGIE ELI CCDS Ot R06.02 SHORTNESS OF BREATH 08/01/2019 KETAN DUARTE [employer] MOTHER Ot G47.9 SLEEP DISORDER, UNSPECIFIED 08/01/2019 KETAN DUARTE [employer] MOTHER Ot J44.9 CHRONIC OBSTRUCTIVE PULMONARY DISEASE, U 08/01/2019 KETAN DUARTE [employer] MOTHER Ot R05 COUGH 08/01/2019 KETAN DUARTE [employer] MOTHER Ot R06.2 WHEEZING 08/01/2019 KETAN DUARTE [employer] MOTHER Ot F17.201 NICOTINE DEPENDENCE, UNSPECIFIED, IN REM 08/01/2019 GERALD, KETAN [employer] MOTHER Ot J44.9 CHRONIC OBSTRUCTIVE PULMONARY DISEASE, U 08/01/2019 KETAN DUARTE [employer] MOTHER Ot R05 COUGH 08/01/2019 KETAN DUARTE [employer] MOTHER Ot R06.2 WHEEZING 08/01/2019 LULÚ MCKEON DO [...] FACJude, ALI FACP CCDS Ot 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 08/01/2019 JESSICA ALFORD FACC, ALI FACP CCDS Ot M06.9 RHEUMATOID ARTHRITIS, UNSPECIFIED 08/01/2019 JSESICA ALFORD FAC, ALI FACP CCDS Ot M79.89 OTHER SPECIFIED SOFT TISSUE DISORDERS 08/01/2019 JESSICA ALFORD FACC, ALI FACP CCDS Ot R07.89 OTHER CHEST PAIN 08/01/2019 JESSICA GUALLPAC, ALI FACP CCDS Ot D63.8 ANEMIA IN OTHER CHRONIC DISEASES CLASSIF 08/01/2019 JESSICA ALFORD FACC, ALI FACP CCDS Ot I47.1 SUPRAVENTRICULAR TACHYCARDIA 08/01/2019 JESSICA GUALLPAC, ALI FACP CCDS Ot 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 08/01/2019 JESSICA ALFORD [facility], [facility] CCDS Ot M06.9 RHEUMATOID ARTHRITIS, UNSPECIFIED 08/01/2019 JESSICA ALFORD [facility], [facility] CCDS Ot M79.89 OTHER SPECIFIED SOFT TISSUE DISORDERS 08/01/2019 JESSICA ALFORD [facility], ALI [facility] CCDS Ot R07.89 OTHER CHEST PAIN 08/01/2019 GENESISMARLENA Ot E11.59 TYPE 2 DIABETES MELLITUS WITH OTH CIRCUL 08/01/2019 MARLENA HURTADO Ot F17.210 NICOTINE DEPENDENCE, CIGARETTES, UNCOMPL 08/01/2019 GENESISMARLENA Ot F41.9 ANXIETY DISORDER, UNSPECIFIED 08/01/2019 GNEESISMARLENA Ot I47.1 SUPRAVENTRICULAR TACHYCARDIA 08/01/2019 GENESISMARLENA Ot I65.23 OCCLUSION AND STENOSIS OF BILATERAL HERNANDEZ 08/01/2019 GENESISMARLENA Ot 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 08/01/2019 MARLENA HURTADO Ot I80.209 [facility]LB[facility] DEEP [facility]ESSE 08/01/2019 MARLENA HURTADO Ot J44.9 CHRONIC OBSTRUCTIVE PULMONARY DISEASE, U 08/01/2019 GENESISMARLENA Ot Z79.899 OTHER USP (CURRENT) DRUG THERAPY 08/01/2019 JANEY ALFORD, GRETEL [...] 08/01/2019 DAPHNE YUSUFP Ot I70.203 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 08/01/2019 MADELIN, DAPHNE [employer] Ot 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 PERFORATION OR AB 08/01/2019 ADELE ANN Ot R13.1 2 DYSPHAGIA, OROPHARYNGEAL PHASE 08/01/2019 JESSICA ALFORD [facility], ALI FACP CCDS Ot E11.9 TYPE 2 DIABETES MELLITUS WITHOUT COMPLIC 08/01/2019 JESSICA ALFORD [facility], ALI [facility] CCDS Ot E66.9 OBESITY, UNSPECIFIED 08/01/2019 JESSICA ALFORD [facility], ALI [facility] CCDS Ot I69.322 DYSARTHRIA FOLLOWING CEREBRAL INFARCTION 08/01/2019 JESSICA ALFORD [facility], ALI [facility] CCDS Ot I69.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 FOLLOWING CEREBRAL INFRC AFF RI 08/01/2019 JESSICA ALFORD [facility], ALI [facility] CCDS Ot I73.9 PERIPHERAL VASCULAR DISEASE, UNSPECIFIED 08/01/2019 JESSICA ALFORD [facility], ALI [facility] CCDS Ot J44.9 CHRONIC OBSTRUCTIVE PULMONARY DISEASE, U 08/01/2019 JESSICA ALFORD [facility], ALI [facility] CCDS Ot R00.2 PALPITATIONS 08/01/2019 JESSICA ALFORD [facility], ALI [facility] CCDS Ot Z68.31 BODY MASS INDEX (BMI) 31.0-31.9, ADULT 08/01/2019 JESSICA ALFORD [facility], ALI [facility] CCDS Ot Z79.01 REHABILITATION THERAPY AIDE (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 OF ANTICOAGULANT 08/01/2019 JESSICA ALFORD [facility], ALI [facility] CCDS Ot Z79.82 USP (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 08/01/2019 JESSICA ALFORD [facility], ALI [facility] CCDS Ot Z79.899 OTHER REHABILITATION THERAPY AIDE (CURRENT) DRUG THERAPY 08/01/2019 JESSICA ALFORD [facility], ALI [facility] CCDS Ot Z86.718 PERSONAL HISTORY OF OTHER VENOUS THROMBO 08/01/2019 JESSICA ALFORD [facility], ALI [facility] CCDS Ot Z87.891 PERSONAL HISTORY OF NICOTINE DEPENDENCE 08/01/2019 JESSICA ALFORD [facility], ALI [facility] CCDS Ot Z95.820 PERIPHERAL VASCULAR ANGIOPLASTY STATUS W 08/01/2019 MARJORIE EDUARDO [employer] Ot I08.1 RHEUMATIC DISORDERS OF BOTH [place] AND T 08/01/2019 MARJORIE EDUARDO [employer] Ot I48.3 TYPICAL ATRIAL FLUTTER 08/01/2019 DAPHNE YUSUF [employer] Ot R59.0 LOCALIZED ENLARGED LYMPH NODES 08/01/2019 DAPHNE YUSUF [employer] Ot Z85.819 PRSNL HX OF MALIG NEOPLM OF UNSP SITE LI 08/01/2019 DAPHNE YUSUF [employer] Ot Z98.890 OTHER SPECIFIED POSTPROCEDURAL STATES 08/01/2019 DAPHNE YUSUF [employer] Ot R59.0 LOCALIZED ENLARGED LYMPH NODES 08/01/2019 DAPHNE YUSUF [employer] Ot Z98.890 OTHER SPECIFIED POSTPROCEDURAL STATES 08/01/2019 KETAN DUARTE [employer] Ot G47.36 SLEEP RELATED HYPOVENTILATION IN CONDITI 08/01/2019 KETAN DUARTE E [employer] MOTHER Ot I25.10 ATHSCL HEART DISEASE OF [place] CORONARY 08/01/2019 KETAN DUARTE [employer] Ot J30.9 ALLERGIC RHINITIS, UNSPECIFIED 08/01/2019 KETAN DUARTE [employer] Ot J44.9 CHRONIC OBSTRUCTIVE PULMONARY DISEASE, U 08/01/2019 KETAN DUARTE [employer] Ot K80.20 CALCULUS OF GALLBLADDER W/O CHOLECYSTITI 08/01/2019 KETAN DUARTE [employer] Ot R91.8 OTHER NONSPECIFIC ABNORMAL FINDING OF [place] 08/01/2019 KETAN DUARTE [employer] Ot Z72.0 TOBACCO USE 08/01/2019 MARJORIE EDUARDO [employer] Ot I48.92 UNSPECIFIED ATRIAL FLUTTER 08/01/2019 MARCUS [...] UNSPECIFIED 08/01/2019 BALJIT BOLANOS MD, Ot Z79.82 REHABILITATION THERAPY AIDE (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 08/01/2019 BALJIT BOLANOS [...] UNSPECIFIED 08/04/2019 BALJIT BOLANOS MD Ot Z79.82 REHABILITATION THERAPY AIDE (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 08/04/2019 CICI ALFORD, [...] DEPENDENCE ON SUPPLEMENTAL OXYGEN 08/04/2019 DAPHNE YUSUF [employer] Ot I73.9 PERIPHERAL VASCULAR DISEASE, UNSPECIFIED 08/04/2019 NAM GASPAR [employer]OR Ot R06.02 SHORTNESS OF BREATH 08/04/2019 NAM GASPAR FAN MAIL EDITOR Ot R60.9 EDEMA, UNSPECIFIED 08/04/2019 JESSICA ALFORD FACAUGIE FACP CCDS Ot R06.02 SHORTNESS OF BREATH 08/04/2019 KETAN DUARTE [employer] C[employer] MOTHER Ot G47.9 SLEEP DISORDER, UNSPECIFIED 08/04/2019 MARYCHUY DUARTEINE E DAY CARE HOME MOTHER Ot J44.9 CHRONIC OBSTRUCTIVE PULMONARY DISEASE, U 08/04/2019 MARYCHUY DUARTEINE Anmol DAY CARE HOME MOTHER Ot R05 COUGH 08/04/2019 KETAN DUARTE E DAY CARE HOME MOTHER Ot R06.2 WHEEZING 08/04/2019 MARYCHUY DUARTEINE E [employer] CARE HOME MOTHER Ot F17.201 NICOTINE DEPENDENCE, UNSPECIFIED, IN REM 08/04/2019 KETAN DUARTE [employer] C[employer] HOME MOTHER Ot J44.9 CHRONIC OBSTRUCTIVE PULMONARY DISEASE, U 08/04/2019 KETAN DUARTE [employer] C[employer] HOME MOTHER Ot R05 COUGH 08/04/2019 KETAN DUARTE [employer] C[employer] HOME MOTHER Ot R06.2 WHEEZING 08/04/2019 MIKE IYER LULÚ Brannon Ot F41. 9 ANXIETY DISORDER, UNSPECIFIED 08/04/2019 MIKE IYER LULÚ Brannon Ot J44. 9 CHRONIC OBSTRUCTIVE PULMONARY DISEASE, U 08/04/2019 MIKE IYER LULÚ Brannon Ot R06. 02 [...] FACC, ALI FACP CCDS Ot 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 08/04/2019 JESSICA ALFORD FACC, ALI FACP CCDS Ot M06.9 RHEUMATOID ARTHRITIS, UNSPECIFIED 08/04/2019 JESSICA ALFORD FACC, ALI FACP CCDS Ot M79.89 OTHER SPECIFIED SOFT TISSUE DISORDERS 08/04/2019 JESSICA ALFORD FACC, ALI FACP CCDS Ot R07.89 OTHER CHEST PAIN 08/04/2019 JESSICA GUALLPAC, ALI FACP CCDS Ot D63.8 ANEMIA IN OTHER CHRONIC DISEASES CLASSIF 08/04/2019 JESSICA GUALLPAC, ALI FACP CCDS Ot I47.1 SUPRAVENTRICULAR TACHYCARDIA 08/04/2019 JESSICA ALFORD FACC, ALI FACP CCDS Ot 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 08/04/2019 JESSICA [...] HERNANDEZ 08/04/2019 GENESISNEOTRI Gloria Ot 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 08/04/2019 GENESIS MARLENA Gloria Ot I80.209 PHLBTS AND THOMBOPHLB OF UNSP DEEP VESSE 08/04/2019 GENESIS MARLENA Gloria Ot J44.9 CHRONIC OBSTRUCTIVE PULMONARY DISEASE, U 08/04/2019 MARLENA HURTADO Gloria Ot Z79.899 OTHER REHABILITATION THERAPY AIDE (CURRENT) DRUG THERAPY 08/04/2019 JANEY ALFORD, GRETEL [...] 08/04/2019 DAPHNE YUSUF Ot I70.203 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 08/04/2019 DAPHNE YUSUF Ot 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 PERFORATION OR AB 08/04/2019 ADELE ANN Ot R13.1 2 DYSPHAGIA, OROPHARYNGEAL PHASE 08/04/2019 JESSICA ALFORD [facility], AUGIE [facility] CCDS Ot E11.9 TYPE 2 DIABETES MELLITUS WITHOUT COMPLIC 08/04/2019 JESSICA GUALLPA, ALI FACP CCDS Ot E66.9 OBESITY, UNSPECIFIED 08/04/2019 JESSICA ALFORD FACC, ALI FACP CCDS Ot I69.322 DYSARTHRIA FOLLOWING CEREBRAL INFARCTION 08/04/2019 JESSICA GUALLPA, ALI FACP CCDS Ot I69.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 FOLLOWING CEREBRAL INFRC AFF RI 08/04/2019 JESSICA ALFORD FACC, ALI FACP CCDS Ot I73.9 PERIPHERAL VASCULAR DISEASE, UNSPECIFIED 08/04/2019 JESSICA ALFORD [facility], ALI FACP CCDS Ot J44.9 CHRONIC OBSTRUCTIVE PULMONARY DISEASE, U 08/04/2019 JESSICA ALFORD [facility], ALI FACP CCDS Ot R00.2 PALPITATIONS 08/04/2019 JESSICA ALFORD FACC, ALI FACP CCDS Ot Z68.31 BODY MASS INDEX (BMI) 31.0-31.9, ADULT 08/04/2019 JESSICA ALFORD FACC, ALI FACP CCDS Ot Z79.01 USP (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 OF ANTICOAGULANT 08/04/2019 JESSICA ALFORD FACC, ALI FACP CCDS Ot Z79.82 USP (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 08/04/2019 JESSICA ALFORD [facility], ALI FACP CCDS Ot Z79.899 OTHER USP (CURRENT) DRUG THERAPY 08/04/2019 JESSICA GUALLPA, ALI FACP CCDS Ot Z86.718 PERSONAL HISTORY OF OTHER VENOUS THROMBO 08/04/2019 JESSICA ALFORD FACC, ALI FACP CCDS Ot Z87.891 PERSONAL HISTORY OF NICOTINE DEPENDENCE 08/04/2019 JESSICA GUALLPA, ALI FACP CCDS Ot Z95.820 PERIPHERAL VASCULAR ANGIOPLASTY STATUS W 08/04/2019 MARJORIE EDUARDO FAN MAIL EDITOR Ot I08.1 RHEUMATIC DISORDERS OF BOTH MITRAL AND T 08/04/2019 MARJORIE EDUARDO FAN MAIL EDITOR Ot I48.3 TYPICAL ATRIAL FLUTTER 08/04/2019 DAPHNE YUSUFP Ot R59.0 LOCALIZED ENLARGED LYMPH NODES 08/04/2019 DAPHNE YUSFUP Ot Z85.819 PRSNL HX OF [facility]IG [facility]LM [facility] SITE [facility] 08/04/2019 DAPHNE YUSUF FAN MAIL EDITOR Ot Z98.890 OTHER SPECIFIED POSTPROCEDURAL STATES 08/04/2019 DAPHNE YUSUF FAN MAIL EDITOR Ot R59.0 LOCALIZED ENLARGED LYMPH NODES 08/04/2019 MADELINDAPHNE BARTLETT FAN MAIL EDITOR Ot Z98.890 OTHER SPECIFIED POSTPROCEDURAL STATES 08/04/2019 KETAN DUARTE DAY CARE HOME MOTHER Ot G47.36 SLEEP RELATED HYPOVENTILATION IN CONDITI 08/04/2019 KETAN DUARTE [employer] C[employer] HOME MOTHER Ot I25.10 ATHSCL HEART DISEASE OF [place] CORONARY 08/04/2019 KETAN DUARTE [employer] C[employer] MOTHER Ot J30.9 ALLERGIC RHINITIS, UNSPECIFIED 08/04/2019 KETAN DUARTE [employer] C[employer] HOME MOTHER Ot J44.9 CHRONIC OBSTRUCTIVE PULMONARY DISEASE, U 08/04/2019 KETAN DUARTE [employer] C[employer] HOME MOTHER Ot K80.20 CALCULUS OF GALLBLADDER W/O CHOLECYSTITI 08/04/2019 KETAN DUARTE DAY CARE HOME MOTHER Ot R91.8 OTHER NONSPECIFIC ABNORMAL FINDING OF [...] PERIPHERAL VASCULAR DISEASE, UNSPECIFIED 08/16/2019 NAM GASPAR FAN MAIL EDITOR Ot R06.02 SHORTNESS OF BREATH 08/16/2019 NAM GASPAR FAN MAIL EDITOR Ot R60.9 EDEMA, UNSPECIFIED 08/16/2019 JESSICA ALFORD FAC, AUGIE ELI CCDS Ot R06.02 SHORTNESS OF BREATH 08/16/2019 MARYCHUY DUARTEINE E DAY CARE HOME MOTHER Ot G47.9 SLEEP DISORDER, UNSPECIFIED 08/16/2019 GERALD KETAN E DAY CARE HOME MOTHER Ot J44.9 CHRONIC OBSTRUCTIVE PULMONARY DISEASE, U 08/16/2019 GERALD, KETAN E DAY CARE HOME MOTHER Ot R05 COUGH 08/16/2019 GERALD KETAN E DAY CARE HOME MOTHER Ot R06.2 WHEEZING 08/16/2019 GERALD KETAN E DAY CARE HOME MOTHER Ot F17.201 NICOTINE DEPENDENCE, UNSPECIFIED, IN REM 08/16/2019 MARYCHUY DUARTEINE E DAY CARE HOME MOTHER Ot J44.9 CHRONIC OBSTRUCTIVE PULMONARY DISEASE, U 08/16/2019 MARYCHUY DUARTEINE E DAY CARE HOME MOTHER Ot R05 COUGH 08/16/2019 GERALD KETAN E DAY CARE HOME MOTHER Ot R06.2 WHEEZING 08/16/2019 LULÚ MCKEON DO [...] FACC, ALI FACP CCDS Ot 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 08/16/2019 JESSICA ALFORD FACC, ALI FACP CCDS Ot M06.9 RHEUMATOID ARTHRITIS, UNSPECIFIED 08/16/2019 JESSICA ALFORD FAC, ALI FACP CCDS Ot M79.89 OTHER SPECIFIED SOFT TISSUE DISORDERS 08/16/2019 JESSICA ALFORD FACC, ALI FACP CCDS Ot R07.89 OTHER CHEST PAIN 08/16/2019 JESSICA ALFORD FACC, ALI FACP CCDS Ot D63.8 ANEMIA IN OTHER CHRONIC DISEASES CLASSIF 08/16/2019 JESSICA ALFORD [facility], ALI FACP CCDS Ot I47.1 SUPRAVENTRICULAR TACHYCARDIA 08/16/2019 JESSICA ALFORD FAC, ALI FACP CCDS Ot 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 08/16/2019 JESSICA ALFORD [facility], ALI FACP CCDS Ot M06.9 RHEUMATOID ARTHRITIS, UNSPECIFIED 08/16/2019 JESSICA ALFORD FAC, ALI FACP CCDS Ot M79.89 OTHER SPECIFIED SOFT TISSUE DISORDERS 08/16/2019 JESSICA ALFORD [facility], ALI FACP CCDS Ot R07.89 OTHER CHEST PAIN 08/16/2019 MARLENA HURTADO Ot E11.59 TYPE 2 DIABETES MELLITUS WITH OTH CIRCUL 08/16/2019 MARLENA HURTADO Ot F17.210 NICOTINE DEPENDENCE, CIGARETTES, UNCOMPL 08/16/2019 MARLENA HURTADO Ot F41.9 ANXIETY DISORDER, UNSPECIFIED 08/16/2019 MARLENA HURTADO Ot I47.1 SUPRAVENTRICULAR TACHYCARDIA 08/16/2019 MARLENA HURTADO Ot I65.23 OCCLUSION AND STENOSIS OF BILATERAL HERNANDEZ 08/16/2019 MARLENA HURTADO Ot 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 08/16/2019 GENESISMARLENA Ot I80.209 PHLBTS AND THOMBOPHLB OF UNSP DEEP VESSE 08/16/2019 GENESISMARLENA Ot J44.9 CHRONIC OBSTRUCTIVE PULMONARY DISEASE, U 08/16/2019 GENESISNEO CRUZTRI Castro Ot Z79.899 OTHER USP (CURRENT) DRUG THERAPY 08/16/2019 JANEY ALFORD, GRETEL [...] 08/16/2019 DAPHNE YUSUF Ot I70.203 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 08/16/2019 DAPHNE YUSUF FAN MAIL EDITOR Ot 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 [...] PULMONARY DISEASE, U 08/16/2019 JESSICA ALFORD FACC, AUGEI FACP CCDS Ot R00.2 PALPITATIONS 08/16/2019 JESSICA ALFORD FACC, AUGIE FACP CCDS Ot Z68.31 BODY MASS INDEX (BMI) 31.0-31.9, ADULT 08/16/2019 JESSICA ALFORD FACC, ALI FACP CCDS Ot Z79.01 USP (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 OF ANTICOAGULANT 08/16/2019 JESSICA ALFORD FACC, AUGIE FACP CCDS Ot Z79.82 REHABILITATION THERAPY AIDE (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 08/16/2019 JESSICA ALFORD FACC, AUGIE FACP CCDS Ot Z79.899 OTHER REHABILITATION THERAPY AIDE (CURRENT) DRUG THERAPY 08/16/2019 JESSICA ALFORD FACC, AUGIE FACP CCDS Ot Z86.718 PERSONAL HISTORY OF OTHER VENOUS THROMBO 08/16/2019 JESSICA ALFORD FACC, AUGIE FACP CCDS Ot Z87.891 PERSONAL HISTORY OF NICOTINE DEPENDENCE 08/16/2019 JESSICA ALFORD FACC, AUGIE FACP CCDS Ot Z95.820 PERIPHERAL VASCULAR ANGIOPLASTY STATUS W 08/16/2019 MARJORIE EDUARDO FAN MAIL EDITOR Ot I08.1 RHEUMATIC DISORDERS OF BOTH MITRAL AND T 08/16/2019 MARJORIE EDUARDO FAN MAIL EDITOR Ot I48.3 TYPICAL ATRIAL FLUTTER 08/16/2019 DAPHNE YUSUF FAN MAIL EDITOR Ot R59.0 LOCALIZED ENLARGED LYMPH NODES 08/16/2019 DAPHNE YUSUF FAN MAIL EDITOR Ot Z85.819 PRSNL HX OF MALIG NEOPLM OF [facility] SITE LI 08/16/2019 DAPHNE YUSUF FAN MAIL EDITOR Ot Z98.890 OTHER SPECIFIED POSTPROCEDURAL STATES 08/16/2019 DAPHNE YUSUF FAN MAIL EDITOR Ot R59.0 LOCALIZED ENLARGED LYMPH NODES 08/16/2019 DAPHNE YUSUF FAN MAIL EDITOR Ot Z98.890 OTHER SPECIFIED POSTPROCEDURAL STATES 08/16/2019 KETAN DUARTE APRN Ot G47.36 SLEEP RELATED HYPOVENTILATION IN CONDITI 08/16/2019 KETAN DUARTE APRN Ot I25.10 ATHSCL HEART DISEASE OF [place] CORONARY 08/16/2019 KETAN DUARTE APRN Ot J30.9 [...] OTHER SPECIFIED POSTPROCEDURAL STATES 08/16/2019 DAPHNE YUSUF FAN MAIL EDITOR Ot I73.9 PERIPHERAL VASCULAR DISEASE, UNSPECIFIED 08/16/2019 NAM GASPAR FAN MAIL EDITOR Ot R06.02 SHORTNESS OF BREATH 08/16/2019 NAM GASPAR FAN MAIL EDITOR Ot R60.9 EDEMA, UNSPECIFIED 08/16/2019 JESSICA ALFORD FAC, AUGIE FACP CCDS Ot R06.02 SHORTNESS OF BREATH 08/16/2019 GERALD, KETAN E DAY CARE HOME MOTHER Ot G47.9 SLEEP DISORDER, UNSPECIFIED 08/16/2019 GERALD, KETAN E DAY C[employer] HOME MOTHER Ot J44.9 CHRONIC OBSTRUCTIVE PULMONARY DISEASE, U 08/16/2019 GERALD, KETAN E DAY CARE HOME MOTHER Ot R05 COUGH 08/16/2019 GERALD, KETAN E DAY CARE HOME MOTHER Ot R06.2 WHEEZING 08/16/2019 GERALD, KETAN E DAY C[employer] HOME MOTHER Ot F17.201 NICOTINE DEPENDENCE, UNSPECIFIED, IN REM 08/16/2019 GERALD, KETAN E DAY CARE HOME MOTHER Ot J44.9 CHRONIC OBSTRUCTIVE PULMONARY DISEASE, U 08/16/2019 GERALD, KETAN E DAY CARE HOME MOTHER Ot R05 COUGH 08/16/2019 GERALD, KETAN E [employer] CARE HOME MOTHER Ot R06.2 WHEEZING 08/16/2019 LULÚ MCKEON DO [...] FAC, ALI FACP CCDS Ot 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 08/16/2019 JESSICA [...] CCDS Ot I47.1 SUPRAVENTRICULAR TACHYCARDIA 08/16/2019 JESSICA [facility], ALI FACP CCDS Ot 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 08/16/2019 JESSICA MD [facility], ALI FACP CCDS Ot M06.9 RHEUMATOID ARTHRITIS, UNSPECIFIED 08/16/2019 JESSICA [facility], ALI FACP CCDS Ot M79.89 OTHER SPECIFIED SOFT TISSUE DISORDERS 08/16/2019 JESSICA [facility], ALI FACP CCDS Ot R07.89 OTHER CHEST PAIN 08/16/2019 MARLENA HURTADO Ot E11.59 TYPE 2 DIABETES MELLITUS WITH OTH CIRCUL 08/16/2019 MARLENA HURTADO Ot F17.210 NICOTINE DEPENDENCE, CIGARETTES, UNCOMPL 08/16/2019 MARLENA HURTADO Ot F41.9 ANXIETY DISORDER, UNSPECIFIED 08/16/2019 MARLENA HURTADO Ot I47.1 SUPRAVENTRICULAR TACHYCARDIA 08/16/2019 MARLENA HURTADO Ot I65.23 OCCLUSION AND STENOSIS OF BILATERAL HERNANDEZ 08/16/2019 MARLENA HURTADO Ot 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 08/16/2019 MARLENA HURTADO Ot I80.209 PHLBTS AND THOMBOPHLB OF UNSP DEEP VESSE 08/16/2019 MARLENA HURTADO Ot J44.9 CHRONIC OBSTRUCTIVE PULMONARY DISEASE, U 08/16/2019 MARLENA HURTADO Ot Z79.899 OTHER USP (CURRENT) DRUG THERAPY 08/16/2019 JANEY ALFORD, GRETEL [...] I70.0 ATHEROSCLEROSIS OF [place] 08/16/2019 DAPHNE YUSUF FAN MAIL EDITOR Ot I70.203 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 08/16/2019 DAPHNE YUSUF FAN MAIL EDITOR Ot 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 PERFORATION OR AB 08/16/2019 ADELE ANN Ot R13.1 2 DYSPHAGIA, OROPHARYNGEAL PHASE 08/16/2019 JESSICA ALFORD FACC, ALI FACP CCDS Ot E11.9 TYPE 2 DIABETES MELLITUS WITHOUT COMPLIC 08/16/2019 JESSICA ALFORD FACC, ALI FACP CCDS Ot E66.9 OBESITY, UNSPECIFIED 08/16/2019 JESSICA AFLORD FACC, ALI FACP CCDS Ot [...] ALFORD FACC, ALI FACP CCDS Ot Z79.01 USP (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 OF ANTICOAGULANT 08/16/2019 JESSICA ALFORD FACC, ALI FACP CCDS Ot Z79.82 USP (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 08/16/2019 JESSICA ALFORD [facility], ALI FACP CCDS Ot Z79.899 OTHER USP (CURRENT) DRUG THERAPY 08/16/2019 JESSICA ALFORD FACC, AUGIE FACP CCDS Ot Z86.718 PERSONAL HISTORY OF OTHER VENOUS THROMBO 08/16/2019 JESSIAC ALFORD FACC, ALI FACP CCDS Ot Z87.891 PERSONAL HISTORY OF NICOTINE DEPENDENCE 08/16/2019 JESSICA ALFORD [facility], AUGIE FACP CCDS Ot Z95.820 PERIPHERAL VASCULAR ANGIOPLASTY STATUS W 08/16/2019 MARJORIE EDUARDO FAN MAIL EDITOR Ot I08.1 RHEUMATIC DISORDERS OF BOTH MITRAL AND T 08/16/2019 MARJORIE EDUARDO FAN MAIL EDITOR Ot I48.3 TYPICAL ATRIAL FLUTTER 08/16/2019 DAPHNE YUSUF FAN MAIL EDITOR Ot R59.0 LOCALIZED ENLARGED LYMPH NODES 08/16/2019 DAPHNE YUSUF FAN MAIL EDITOR Ot Z85.819 PRSNL HX OF MALIG NEOPLM OF [facility] SITE LI 08/16/2019 DAPHNE YUSUF FAN MAIL EDITOR Ot Z98.890 OTHER SPECIFIED POSTPROCEDURAL STATES 08/16/2019 DAPHNE YUSUF FAN MAIL EDITOR Ot R59.0 LOCALIZED ENLARGED LYMPH NODES 08/16/2019 PILI YUSUFA FAN MAIL EDITOR Ot Z98.890 OTHER SPECIFIED POSTPROCEDURAL STATES 08/16/2019 KETAN DUARTE DAY CARE HOME MOTHER Ot G47.36 SLEEP RELATED HYPOVENTILATION IN CONDITI 08/16/2019 KETAN DUARTE [employer] C[employer] HOME MOTHER Ot I25.10 ATHSCL HEART DISEASE OF [place] CORONARY 08/16/2019 KETAN DUARTE [employer] C[employer] MOTHER Ot J30.9 ALLERGIC RHINITIS, UNSPECIFIED 08/16/2019 KETAN DUARTE [employer] C[employer] HOME MOTHER Ot J44.9 CHRONIC OBSTRUCTIVE PULMONARY DISEASE, U 08/16/2019 KETAN DUARTE [employer] C[employer] HOME MOTHER Ot K80.20 CALCULUS OF GALLBLADDER W/O CHOLECYSTITI 08/16/2019 KETAN DUARTE DAY CARE HOME MOTHER Ot R91.8 OTHER NONSPECIFIC ABNORMAL FINDING OF VICKIE 08/16/2019 KETAN DUARTE DAY CARE HOME MOTHER Ot Z72.0 TOBACCO USE 08/16/2019 MARJORIE EDUARDO FAN MAIL EDITOR Ot I48.92 UNSPECIFIED ATRIAL FLUTTER 08/16/2019 MARCUS [...] MD Ot I80.209 PHLBTS AND THOMBOPHLB OF [facility] DEEP VESSE 08/16/2019 MARCUS MONACO [...] OF OTHER VASCULAR IMPLANTS AND 08/16/2019 MARCUS MNOACO MD Ot Z96.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 08/16/2019 MARCUS MONACO MD Ot Z98.890 OTHER SPECIFIED POSTPROCEDURAL STATES 08/16/2019 DAPHNE YUSUF Ot I73.9 PERIPHERAL VASCULAR DISEASE, UNSPECIFIED 08/16/2019 NAM GASPAR FAN MAIL EDITOR Ot R06.02 SHORTNESS OF BREATH 08/16/2019 NAM GASPAR Ot R60.9 EDEMA, UNSPECIFIED 08/16/2019 JESSICA ALFORD FACCAUGIE FACP CCDS Ot R06.02 SHORTNESS OF BREATH 08/16/2019 KETAN DUARTE APRN Ot G47.9 SLEEP DISORDER, UNSPECIFIED 08/16/2019 KETAN DUARTE APRN Ot J44.9 CHRONIC OBSTRUCTIVE PULMONARY DISEASE, U 08/16/2019 MARYCHUY DUARTEINE E DAY CARE HOME MOTHER Ot R05 COUGH 08/16/2019 GERALDMARYCHUY ELLISONINE E DAY CARE HOME MOTHER Ot R06.2 WHEEZING 08/16/2019 MARYCHUY DUARTEINE E DAY CARE HOME MOTHER Ot F17.201 NICOTINE DEPENDENCE, UNSPECIFIED, IN REM 08/16/2019 GERALDMARYCHUY ELLISONINE Anmol DAY CARE HOME MOTHER Ot J44.9 CHRONIC OBSTRUCTIVE PULMONARY DISEASE, U 08/16/2019 GERALDMARYCHUY ELLISONINE E DAY CARE HOME MOTHER Ot R05 COUGH 08/16/2019 GERALDMARYCHUY ELLISONINE Anmol DAY CARE HOME MOTHER Ot R06.2 WHEEZING 08/16/2019 LULÚ MCKEON DO [...] FACC, ALI FACP CCDS Ot 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 08/16/2019 JESSICA ALFORD FACC, ALI FACP CCDS Ot M06.9 RHEUMATOID ARTHRITIS, UNSPECIFIED 08/16/2019 JESSICA ALFORD FACC, ALI FACP CCDS Ot M79.89 OTHER SPECIFIED SOFT TISSUE DISORDERS 08/16/2019 JESSICA ALFORD FACC, ALI FACP CCDS Ot R07.89 OTHER CHEST PAIN 08/16/2019 JESSICA ALFORD FACC, ALI FACP CCDS Ot D63.8 ANEMIA IN OTHER CHRONIC DISEASES CLASSIF 08/16/2019 JESSICA ALFORD [facility], ALI FACP CCDS Ot I47.1 SUPRAVENTRICULAR TACHYCARDIA 08/16/2019 JESSICA ALFORD [facility], [facility]I [facility] Ot 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 08/16/2019 JESSICA ALFORD [facility], ALI FACP CCDS Ot M06.9 RHEUMATOID ARTHRITIS, UNSPECIFIED 08/16/2019 JESSICA ALFORD [facility], ALI [facility] CCDS Ot M79.89 OTHER SPECIFIED SOFT TISSUE DISORDERS 08/16/2019 JESSICA ALFORD [facility], ALI [facility] CCD[facility] Ot R07.89 OTHER CHEST PAIN 08/16/2019 MARLENA HURTADO Ot E11.59 TYPE 2 DIABETES MELLITUS WITH OTH CIRCUL 08/16/2019 MARLENA HURTADO Ot F17.210 NICOTINE DEPENDENCE, CIGARETTES, UNCOMPL 08/16/2019 MARLENA HURTADO Ot F41.9 ANXIETY DISORDER, UNSPECIFIED 08/16/2019 MARLENA HURTADO Ot I47.1 SUPRAVENTRICULAR TACHYCARDIA 08/16/2019 MARLENA HURTADO Ot I65.23 OCCLUSION AND STENOSIS OF BILATERAL HERNANDEZ 08/16/2019 MARLENA HURTADO Ot 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 08/16/2019 MARLENA HURTADO Ot I80.209 PHLBTS AND THOMBOPHLB OF UNSP DEEP VESSE 08/16/2019 MARLENA HURTADO Ot J44.9 CHRONIC OBSTRUCTIVE PULMONARY DISEASE, U 08/16/2019 MARLENA HURTADO Ot Z79.899 OTHER USP (CURRENT) DRUG THERAPY 08/16/2019 JANEY ALFORD, GRETEL [...] 02 SHORTNESS OF BREATH 08/16/2019 DAPHNE YUSUF FAN MAIL EDITOR Ot I70.0 ATHEROSCLEROSIS OF [place] 08/16/2019 DAPHNE YUSUF FAN MAIL EDITOR Ot I70.203 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 08/16/2019 DAPHNE YUSUF FAN MAIL EDITOR Ot 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 [...] ALFORD FACC, ALI FACP CCDS Ot Z79.01 REHABILITATION THERAPY AIDE (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 OF ANTICOAGULANT 08/16/2019 JESSICA ALFORD FACC, ALI FACP CCDS Ot Z79.82 REHABILITATION THERAPY AIDE (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 08/16/2019 JESSICA ALFORD FACC, ALI FACP CCDS Ot Z79.899 OTHER USP (CURRENT) DRUG THERAPY 08/16/2019 JESSICA ALFORD FACC, ALI FACP CCDS Ot Z86.718 PERSONAL HISTORY OF OTHER VENOUS THROMBO 08/16/2019 JESSICA ALFORD FACC, ALI FACP CCDS Ot Z87.891 PERSONAL HISTORY OF NICOTINE DEPENDENCE 08/16/2019 JESSICA ALFORD FACC, ALI FACP CCDS Ot Z95.820 PERIPHERAL VASCULAR ANGIOPLASTY STATUS W 08/16/2019 MARJORIE EDUARDO FAN MAIL EDITOR Ot I08.1 RHEUMATIC DISORDERS OF BOTH MITRAL AND T 08/16/2019 MARJORIE EDUARDO FAN MAIL EDITOR Ot I48.3 TYPICAL ATRIAL FLUTTER 08/16/2019 DAPHNE YUSUF FAN MAIL EDITOR Ot R59.0 LOCALIZED ENLARGED LYMPH NODES 08/16/2019 DAPHNE YUSUF FAN MAIL EDITOR Ot Z85.819 PRSNL HX OF MALIG NEOPLM OF UNSP SITE LI 08/16/2019 DAPHNE YUSUF FAN MAIL EDITOR Ot Z98.890 OTHER SPECIFIED POSTPROCEDURAL STATES 08/16/2019 PILI YUSUFA FAN MAIL EDITOR Ot R59.0 LOCALIZED ENLARGED LYMPH NODES 08/16/2019 DAPHNE YUSUF FAN MAIL EDITOR Ot Z98.890 OTHER SPECIFIED POSTPROCEDURAL STATES 08/16/2019 KETAN DUARTE APRN Ot G47.36 SLEEP RELATED HYPOVENTILATION IN CONDITI 08/16/2019 KETAN DUARTE APRN Ot I25.10 ATHSCL HEART DISEASE OF [place] CORONARY 08/16/2019 KETAN DUARTE DAY CARE HOME MOTHER Ot J30.9 ALLERGIC RHINITIS, UNSPECIFIED 08/16/2019 KETAN DUARTE APRN Ot J44.9 CHRONIC OBSTRUCTIVE PULMONARY DISEASE, U 08/16/2019 KETAN DUARTE APRN Ot K80.20 CALCULUS OF GALLBLADDER W/O CHOLECYSTITI 08/16/2019 KETAN DUARTE APRN Ot R91.8 OTHER NONSPECIFIC ABNORMAL FINDING OF VICKIE 08/16/2019 KETAN DUARTE APRN Ot Z72.0 TOBACCO USE 08/16/2019 MARJORIE EDUARDO FAN MAIL EDITOR Ot I48.92 UNSPECIFIED ATRIAL FLUTTER 08/16/2019 MARCUS [...] OTHER SPECIFIED POSTPROCEDURAL STATES 08/16/2019 DAPHNE YUSUF FAN MAIL EDITOR Ot I73.9 PERIPHERAL VASCULAR DISEASE, UNSPECIFIED 08/16/2019 NAM GASPAR FAN MAIL EDITOR Ot R06.02 SHORTNESS OF BREATH 08/16/2019 NAM GASPAR FAN MAIL EDITOR Ot R60.9 EDEMA, UNSPECIFIED 08/16/2019 JESSICA ALFORD FACAUGIE FACP CCDS Ot R06.02 SHORTNESS OF BREATH 08/16/2019 KETAN DUARTE [employer] MOTHER Ot G47.9 SLEEP DISORDER, UNSPECIFIED 08/16/2019 MARYCHUY DUARTEINE Anmol [employer] CARE HOME MOTHER Ot J44.9 CHRONIC OBSTRUCTIVE PULMONARY DISEASE, U 08/16/2019 KETAN DUARTE [employer] MOTHER Ot R05 COUGH 08/16/2019 KETAN DUARTE [employer] MOTHER Ot R06.2 WHEEZING 08/16/2019 KETAN DUARTE [employer] MOTHER Ot F17.201 NICOTINE DEPENDENCE, UNSPECIFIED, IN REM 08/16/2019 KETAN DUARTE [employer] MOTHER Ot J44.9 CHRONIC OBSTRUCTIVE PULMONARY DISEASE, U 08/16/2019 KETAN DUARTE [employer] MOTHER Ot R05 COUGH 08/16/2019 KETAN DUARTE APRN [...] GUALLPAC, ALI FACP CCDS Ot 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 08/16/2019 JESSICA [...] GUALLPAC, ALI FACP CCDS Ot 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 08/16/2019 JESSICA [...] HERNANDEZ 08/16/2019 MARLENA HURTADO Ot 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 08/16/2019 MARLENA HURTADO Ot I80.209 [facility] D[facility]ES[facility] 08/16/2019 MARLENA HURTADO Ot J44.9 CHRONIC OBSTRUCTIVE PULMONARY DISEASE, U 08/16/2019 MARLENA HURTADO Ot Z79.899 OTHER REHABILITATION THERAPY AIDE (CURRENT) DRUG THERAPY 08/16/2019 JANEY ALFORD, GRETEL [...] OF [place] 08/16/2019 DAPHNE YUSUF Ot I70.203 [facility] 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 08/16/2019 DAPHNE YUSUF Ot 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 PERFORATION OR AB 08/16/2019 ADELE ANN Ot R13.1 2 DYSPHAGIA, OROPHARYNGEAL PHASE 08/16/2019 JESSICA ALFORD FAC, ALI FACP CCDS Ot E11.9 TYPE 2 DIABETES MELLITUS WITHOUT COMPLIC 08/16/2019 JESSICA ALFORD [facility], ALI FACP CCDS Ot E66.9 OBESITY, UNSPECIFIED 08/16/2019 JESSICA ALFORD [facility], ALI FACP CCDS Ot I69.322 DYSARTHRIA FOLLOWING CEREBRAL INFARCTION 08/16/2019 JESSICA ALFORD [facility], ALI FACP CCDS Ot I69.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 FOLLOWING CEREBRAL INFRC AFF RI 08/16/2019 JESSICA ALFORD [facility], ALI FACP CCDS Ot I73.9 PERIPHERAL VASCULAR DISEASE, UNSPECIFIED 08/16/2019 JESSICA ALFORD [facility], ALI FACP CCDS Ot J44.9 CHRONIC OBSTRUCTIVE PULMONARY DISEASE, U 08/16/2019 JESSICA ALFORD [facility], ALI FACP CCDS Ot R00.2 PALPITATIONS 08/16/2019 JESSICA ALFORD [facility], ALI FACP CCDS Ot Z68.31 BODY MASS INDEX (BMI) 31.0-31.9, ADULT 08/16/2019 JESSICA ALFORD [facility], ALI FACP CCDS Ot Z79.01 REHABILITATION THERAPY AIDE (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 OF ANTICOAGULANT 08/16/2019 JESSICA ALFORD [facility], ALI FACP CCDS Ot Z79.82 REHABILITATION THERAPY AIDE (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 08/16/2019 JESSICA ALFORD [facility], ALI FACP CCDS Ot Z79.899 OTHER REHABILITATION THERAPY AIDE (CURRENT) DRUG THERAPY 08/16/2019 JESSICA ALFORD [facility], ALI FACP CCDS Ot Z86.718 PERSONAL HISTORY OF OTHER VENOUS THROMBO 08/16/2019 JESSICA ALFORD [facility], ALI FACP CCDS Ot Z87.891 PERSONAL HISTORY OF NICOTINE DEPENDENCE 08/16/2019 JESSICA ALFORD [facility], ALI FACP CCDS Ot Z95.820 PERIPHERAL VASCULAR ANGIOPLASTY STATUS W 08/16/2019 MARJORIE EDUARDO FAN MAIL EDITOR Ot I08.1 RHEUMATIC DISORDERS OF BOTH MITRAL AND T 08/16/2019 MARJORIE EDUARDO FAN MAIL EDITOR Ot I48.3 TYPICAL ATRIAL FLUTTER 08/16/2019 DAPHNE YUSUF FAN MAIL EDITOR Ot R59.0 LOCALIZED ENLARGED LYMPH NODES 08/16/2019 DAPHNE YUSUFP Ot Z85.819 PRSNL HX OF MALIG NEOPLM OF [facility] SITE LI 08/16/2019 DAPHNE YUSUF FAN MAIL EDITOR Ot Z98.890 OTHER SPECIFIED POSTPROCEDURAL STATES 08/16/2019 MADELINJESSICA PADILLANDA FAN MAIL EDITOR Ot R59.0 LOCALIZED ENLARGED LYMPH NODES 08/16/2019 DAPHNE YUSUF FAN MAIL EDITOR Ot Z98.890 OTHER SPECIFIED POSTPROCEDURAL STATES 08/16/2019 KETAN DUARTE [employer] CARE HOME MOTHER Ot G47.36 SLEEP RELATED HYPOVENTILATION IN CONDITI 08/16/2019 KETAN DUARTE APRN Ot I25.10 ATHSCL HEART DISEASE OF [place] CORONARY 08/16/2019 KETAN DUARTE [employer] MOTHER Ot J30.9 ALLERGIC RHINITIS, UNSPECIFIED 08/16/2019 KETAN [...] PERIPHERAL VASCULAR DISEASE, UNSPECIFIED 08/17/2019 NAM GASPAR FAN MAIL EDITOR Ot R06.02 SHORTNESS OF BREATH 08/17/2019 NAM GASPARP Ot R60.9 EDEMA, UNSPECIFIED 08/17/2019 JESSICA ALFORD FAC, AUGIE ELI CCDS Ot R06.02 SHORTNESS OF BREATH 08/17/2019 KETAN DUARTE [employer] MOTHER Ot G47.9 SLEEP DISORDER, UNSPECIFIED 08/17/2019 KETAN DUARTE [employer] MOTHER Ot J44.9 CHRONIC OBSTRUCTIVE PULMONARY DISEASE, U 08/17/2019 KETAN DUARTE [employer] C[employer] MOTHER Ot R05 COUGH 08/17/2019 KETAN DUARTE [employer] C[employer] HOME MOTHER Ot R06.2 WHEEZING 08/17/2019 MARYCHUY DUARTEINE E DAY CARE HOME MOTHER Ot F17.201 NICOTINE DEPENDENCE, UNSPECIFIED, IN REM 08/17/2019 KETAN DUARTE [employer] HOME MOTHER Ot J44.9 CHRONIC OBSTRUCTIVE PULMONARY DISEASE, U 08/17/2019 KETAN DUARTE [employer] MOTHER Ot R05 COUGH 08/17/2019 MARYCHUY DUARTEINE Anmol [employer] CARE HOME MOTHER Ot R06.2 WHEEZING 08/17/2019 LULÚ MCKEON DO Ot F41. 9 ANXIETY DISORDER, UNSPECIFIED 08/17/2019 LULÚ MCKEON DO Ot J44. 9 CHRONIC OBSTRUCTIVE PULMONARY DISEASE, U 08/17/2019 LULÚ MCEKON DO Ot R06. 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 08/17/2019 MARLENA HURTADO Gloria Ot J44.9 CHRONIC OBSTRUCTIVE PULMONARY DISEASE, U 08/17/2019 GENESISMARLENA CRUZ Gloria Ot Z79.899 OTHER USP (CURRENT) DRUG THERAPY 08/17/2019 JANEY ALFORD, GRETEL [...] 08/17/2019 DAPHNE YUSUFP Ot I70.203 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 08/17/2019 DAPHNE YUSUFP Ot 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 PERFORATION OR AB 08/17/2019 ADELE ANN Ot R13.1 2 DYSPHAGIA, OROPHARYNGEAL PHASE 08/17/2019 JESSICA ALFORD FACC, ALI FACP CCDS Ot E11.9 TYPE 2 DIABETES MELLITUS WITHOUT COMPLIC 08/17/2019 JESSICA ALFORD FACC, ALI FACP CCDS Ot E66.9 OBESITY, UNSPECIFIED 08/17/2019 JESSICA ALFORD FACC, ALI FACP [...] ALFORD FACC, ALI FACP CCDS Ot Z79.01 USP (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 OF ANTICOAGULANT 08/17/2019 JESSICA ALFORD FACC, ALI FACP CCDS Ot Z79.82 USP (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 08/17/2019 JESSICA ALFORD [facility], ALI FACP CCDS Ot Z79.899 OTHER USP (CURRENT) DRUG THERAPY 08/17/2019 JESSICA ALFORD FACC, ALI FACP CCDS Ot Z86.718 PERSONAL HISTORY OF OTHER VENOUS THROMBO 08/17/2019 JESSICA ALFORD FACC, ALI FACP CCDS Ot Z87.891 PERSONAL HISTORY OF NICOTINE DEPENDENCE 08/17/2019 JESSICA ALFORD FACC, ALI FACP CCDS Ot Z95.820 PERIPHERAL VASCULAR ANGIOPLASTY STATUS W 08/17/2019 MARJORIE EDUARDO FAN MAIL EDITOR Ot I08.1 RHEUMATIC DISORDERS OF BOTH MITRAL AND T 08/17/2019 MARJORIE EDUARDO FAN MAIL EDITOR Ot I48.3 TYPICAL ATRIAL FLUTTER 08/17/2019 DAPHNE YUSUF FAN MAIL EDITOR Ot R59.0 LOCALIZED ENLARGED LYMPH NODES 08/17/2019 DAPHNE YUSUF FAN MAIL EDITOR Ot Z85.819 PRSNL HX OF MALIG NEOPLM OF [facility] SITE LI 08/17/2019 DAPHNE YUSUF FAN MAIL EDITOR Ot Z98.890 OTHER SPECIFIED POSTPROCEDURAL STATES 08/17/2019 DAPHNE YUSUF FAN MAIL EDITOR Ot R59.0 LOCALIZED ENLARGED LYMPH NODES 08/17/2019 DAPHNE YUSUF FAN MAIL EDITOR Ot Z98.890 OTHER SPECIFIED POSTPROCEDURAL STATES 08/17/2019 KETAN DUARTE APRN Ot G47.36 SLEEP RELATED HYPOVENTILATION IN CONDITI 08/17/2019 KETAN DUARTE APRN Ot I25.10 ATHSCL HEART DISEASE OF [place] CORONARY 08/17/2019 KETAN DUARTE APRN Ot J30.9 [...] F32.9 MAJOR DEPRESSIVE DISORDER, SINGLE EPISOD 08/17/2019 MARCUS MONACO MD Ot F41.9 ANXIETY DISORDER, [...] MD Ot Z93.1 GASTROSTOMY STATUS 08/17/2019 MARCUS MOANCO MD Ot Z95.5 PRESENCE OF CORONARY ANGIOPLASTY IMPLANT 08/17/2019 MARCUS MONACO MD Ot Z95.828 PRESENCE OF [...] SATNAM MIKE MD Ot I70.203 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 08/18/2019 SATNAM MIKE MD [...] PERSONAL HISTORY OF OTHER MALIGNANT NEOP 08/18/2019 ASTNAM MIKE MD, Ot Z87.891 PERSONAL HISTORY OF [...] SATNAM MIKE MD Ot I70.203 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 08/18/2019 SATNAM MIKE MD [...] FOR THERAPEUTIC DRUG MONITORIN 08/23/2019 MARJORIE EDUARDO FAN MAIL EDITOR Ot 305.1 TOBACCO USE DISORDER 08/23/2019 MARJORIE EDUARDO FAN MAIL EDITOR Ot 427.0 PAROX ATRIAL TACHYCARDIA 08/23/2019 MARJORIE EDUARDO FAN MAIL EDITOR Ot 443.9 PERIPH VASCULAR DIS NOS 08/23/2019 MARJORIE EDUARDO Carlyn FAN MAIL EDITOR Ot 4 96 CHR AIRWAY OBSTRUCT NEC 08/23/2019 DAPHNE YUSUF FAN MAIL EDITOR Ot I73.9 PERIPHERAL VASCULAR DISEASE, UNSPECIFIED 08/23/2019 NAM GASPAR Myrna FAN MAIL EDITOR Ot R06.02 SHORTNESS OF BREATH 08/23/2019 HUBERT NAM Norris FAN MAIL EDITOR Ot R60.9 EDEMA, UNSPECIFIED 08/23/2019 JESSICA ALFORD FAC, AUGIE GUALLPAP CCDS Ot R06.02 SHORTNESS OF BREATH 08/23/2019 GERALD, KETAN E DAY CARE HOME MOTHER Ot G47.9 SLEEP DISORDER, UNSPECIFIED 08/23/2019 MARYCHUY DUARTEINE Anmol [employer] CARE HOME MOTHER Ot J44.9 CHRONIC OBSTRUCTIVE PULMONARY DISEASE, U 08/23/2019 GERALD KETAN E DAY CARE HOME MOTHER Ot R05 COUGH 08/23/2019 GERALD KETAN E DAY CARE HOME MOTHER Ot R06.2 WHEEZING 08/23/2019 GERALD, KETAN E [employer] C[employer] HOME MOTHER Ot F17.201 NICOTINE DEPENDENCE, UNSPECIFIED, IN REM 08/23/2019 MARYCHUY DUARTEINE Anmol [employer] CARE HOME MOTHER Ot J44.9 CHRONIC OBSTRUCTIVE PULMONARY DISEASE, U 08/23/2019 GERALD, KETAN E DAY CARE HOME MOTHER Ot R05 COUGH 08/23/2019 MARYCHUY DUARTEINE E DAY CARE HOME MOTHER Ot R06.2 WHEEZING 08/23/2019 LULÚ MCKEON DO Ot F41. 9 ANXIETY DISORDER, UNSPECIFIED 08/23/2019 LULÚ MCKEON DO Ot J44. 9 CHRONIC OBSTRUCTIVE PULMONARY DISEASE, U 08/23/2019 LULÚ MCKEON DO Ot R06. 02 SHORTNESS OF BREATH 08/23/2019 LULÚ MCKEON DO Ot Z72. 0 TOBACCO USE 08/23/2019 DAPHNE YUSUF FAN MAIL EDITOR Ot D50.9 IRON DEFICIENCY ANEMIA, UNSPECIFIED 08/23/2019 JANEY ALFORD, GRETEL Brannon Ot D50.9 IRON DEFICIENCY ANEMIA, UNSPECIFIED 08/23/2019 JANEY ALFORD, GRETEL Brannon Ot D50.9 IRON DEFICIENCY ANEMIA, UNSPECIFIED 08/23/2019 JANEY ALFORD, GRETEL Brannon Ot Z01.818 ENCOUNTER FOR OTHER PREPROCEDURAL EXAMIN 08/23/2019 JESSICA ALFORD FACC, ALI FACP CCDS Ot D63.8 ANEMIA IN OTHER CHRONIC DISEASES CLASSIF 08/23/2019 JESSICA ALFORD [facility], ALI FACP CCDS Ot I47.1 SUPRAVENTRICULAR TACHYCARDIA 08/23/2019 JESSICA MD [facility], ALI FACP CCDS Ot 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 08/23/2019 JESSICA MD [facility], ALI FACP CCDS Ot M06.9 RHEUMATOID ARTHRITIS, UNSPECIFIED 08/23/2019 JESSICA [facility], ALI FACP CCDS Ot M79.89 OTHER SPECIFIED SOFT TISSUE DISORDERS 08/23/2019 JESSICA MD [facility], ALI FACP CCDS Ot R07.89 OTHER CHEST PAIN 08/23/2019 JESSICA MD [facility], ALI FACP CCDS Ot D63.8 ANEMIA IN OTHER CHRONIC DISEASES CLASSIF 08/23/2019 JESSICA MD [facility], ALI FACP CCDS Ot I47.1 SUPRAVENTRICULAR TACHYCARDIA 08/23/2019 JESSICA MD [facility], ALI FACP CCDS Ot 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 08/23/2019 JESSICA ALFORD [facility], ALI FACP CCDS Ot M06.9 RHEUMATOID ARTHRITIS, UNSPECIFIED 08/23/2019 JESSICA MD [facility], ALI FACP CCDS Ot M79.89 OTHER SPECIFIED SOFT TISSUE DISORDERS 08/23/2019 JESSICA ALFORD [facility], ALI FACP CCDS Ot R07.89 OTHER CHEST PAIN 08/23/2019 MARLENA HURTADO Ot E11.59 TYPE 2 DIABETES MELLITUS WITH OTH CIRCUL 08/23/2019 MARLENA HURTADO Ot F17.210 NICOTINE DEPENDENCE, CIGARETTES, UNCOMPL 08/23/2019 MARLENA HURTADO Ot F41.9 ANXIETY DISORDER, UNSPECIFIED 08/23/2019 MARLENA HURTADO Ot I47.1 SUPRAVENTRICULAR TACHYCARDIA 08/23/2019 MARLENA HURTADO Ot I65.23 OCCLUSION AND STENOSIS OF BILATERAL HERNANDEZ 08/23/2019 MARLENA HURTADO Ot 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 08/23/2019 MARLENA HURTADO Ot I80.209 PHLBTS AND THOMBOPHLB OF UNSP DEEP VESSE 08/23/2019 MARLENA HURTADO Ot J44.9 CHRONIC OBSTRUCTIVE PULMONARY DISEASE, U 08/23/2019 MARLENA HURTADO Gloria Ot Z79.899 OTHER USP (CURRENT) DRUG THERAPY 08/23/2019 JANEY ALFORD, GRETEL [...] 02 SHORTNESS OF BREATH 08/23/2019 DAPHNE YUSUF FAN MAIL EDITOR Ot I70.0 ATHEROSCLEROSIS OF [place] 08/23/2019 DAPHNE YUSUF FAN MAIL EDITOR Ot I70.203 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 08/23/2019 DAPHNE YUSUF FAN MAIL EDITOR Ot 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 [...] 31.0-31.9, ADULT 08/23/2019 JESSICA ALFORD FACC, [facility]IE [facility] CCD[facility] Ot Z79.01 USP (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 OF ANTICOAGULANT 08/23/2019 JESSICA ALFORD FACC, AUGIE FACP CCDS Ot Z79.82 USP (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 08/23/2019 JESSICA ALFORD FACC, ALI FACP CCDS Ot Z79.899 OTHER REHABILITATION THERAPY AIDE (CURRENT) DRUG THERAPY 08/23/2019 JESSICA ALFORD FACC, AUGIE FACP CCDS Ot Z86.718 PERSONAL HISTORY OF OTHER VENOUS THROMBO 08/23/2019 JESSICA ALFORD FACC, ALI FACP CCDS Ot Z87.891 PERSONAL HISTORY OF NICOTINE DEPENDENCE 08/23/2019 JESSICA GUALLPA, AUGIE [facility] CCDS Ot Z95.820 PERIPHERAL VASCULAR ANGIOPLASTY STATUS W 08/23/2019 MARJORIE EDUARDO FAN MAIL EDITOR Ot I08.1 RHEUMATIC DISORDERS OF BOTH MITRAL AND T 08/23/2019 MARJORIE EDUARDO FAN MAIL EDITOR Ot I48.3 TYPICAL ATRIAL FLUTTER 08/23/2019 DAPHNE YUSUF FAN MAIL EDITOR Ot R59.0 LOCALIZED ENLARGED LYMPH NODES 08/23/2019 DAPHNE YUSUF FAN MAIL EDITOR Ot Z85.819 PRSNL HX OF [facility]LM [facility] SITE [facility] 08/23/2019 DAPHNE YUSUF FAN MAIL EDITOR Ot Z98.890 OTHER SPECIFIED POSTPROCEDURAL STATES 08/23/2019 DAPHNE YUSUF FAN MAIL EDITOR Ot R59.0 LOCALIZED ENLARGED LYMPH NODES 08/23/2019 DAPHNE YUSUF FAN MAIL EDITOR Ot Z98.890 OTHER SPECIFIED POSTPROCEDURAL STATES 08/23/2019 KETAN DUARTE APRN Ot G47.36 SLEEP RELATED HYPOVENTILATION IN CONDITI 08/23/2019 KETAN DUARTE APRN Ot I25.10 ATHSCL HEART DISEASE OF [place] CORONARY 08/23/2019 KETAN DUARTE APRN Ot J30.9 ALLERGIC RHINITIS, UNSPECIFIED 08/23/2019 KETAN DUARTE APRN Ot J44.9 CHRONIC OBSTRUCTIVE PULMONARY DISEASE, U 08/23/2019 EKTAN DUARTE APRN Ot K80.20 CALCULUS OF GALLBLADDER [...] Z98.890 OTHER SPECIFIED POSTPROCEDURAL STATES 08/23/2019 DAPHNE YSUUF Ot I73.9 PERIPHERAL VASCULAR DISEASE, UNSPECIFIED 08/23/2019 NAM GASPAR Ot R06.02 SHORTNESS OF BREATH 08/23/2019 NAM GASPAR Ot R60.9 EDEMA, UNSPECIFIED 08/23/2019 JESSICA ALFORD FACC, ALI FACP CCDS Ot R06.02 SHORTNESS OF BREATH 08/23/2019 GERALD, KETAN E DAY CARE HOME MOTHER Ot G47.9 SLEEP DISORDER, UNSPECIFIED 08/23/2019 GERALD, KETAN E DAY C[employer] HOME MOTHER Ot J44.9 CHRONIC OBSTRUCTIVE PULMONARY DISEASE, U 08/23/2019 GERALD, KETAN E DAY CARE HOME MOTHER Ot R05 COUGH 08/23/2019 GERALD, KETAN E DAY C[employer] HOME MOTHER Ot R06.2 WHEEZING 08/23/2019 GERALD, KETAN E [employer] C[employer] HOME MOTHER Ot F17.201 NICOTINE DEPENDENCE, UNSPECIFIED, IN REM 08/23/2019 GERALD KETAN E DAY CARE HOME MOTHER Ot J44.9 CHRONIC OBSTRUCTIVE PULMONARY DISEASE, U 08/23/2019 GERALD KETAN E DAY CARE HOME MOTHER Ot R05 COUGH 08/23/2019 GERALD, KETAN E DAY CARE HOME MOTHER Ot R06.2 WHEEZING 08/23/2019 LULÚ MCKEON DO [...] FACC, ALI FACP CCDS Ot 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 08/23/2019 JESSICA ALFORD FACC, ALI FACP CCDS Ot M06.9 RHEUMATOID ARTHRITIS, UNSPECIFIED 08/23/2019 JESSICA ALFORD FACC, ALI FACP CCDS Ot M79.89 OTHER SPECIFIED SOFT TISSUE DISORDERS 08/23/2019 JESSICA ALFORD [facility], ALI FACP CCDS Ot R07.89 OTHER CHEST PAIN 08/23/2019 JESSICA ALFORD [facility], ALI FACP CCDS Ot D63.8 ANEMIA IN OTHER CHRONIC DISEASES CLASSIF 08/23/2019 JESSICA ALFORD [facility], ALI FACP CCDS Ot I47.1 SUPRAVENTRICULAR TACHYCARDIA 08/23/2019 JESSICA ALFORD [facility], ALI FACP CCDS Ot 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 08/23/2019 JESSICA ALFORD [facility], ALI FACP CCDS Ot M06.9 RHEUMATOID ARTHRITIS, UNSPECIFIED 08/23/2019 JESSICA ALFORD [facility], ALI FACP CCDS Ot M79.89 OTHER SPECIFIED SOFT TISSUE DISORDERS 08/23/2019 JESSICA ALFORD [facility], ALI FACP CCDS Ot R07.89 OTHER CHEST PAIN 08/23/2019 MARLENA HURTADO Ot E11.59 TYPE 2 DIABETES MELLITUS WITH OTH CIRCUL 08/23/2019 MARLENA HURTADO Ot F17.210 NICOTINE DEPENDENCE, CIGARETTES, UNCOMPL 08/23/2019 MARLENA HURTADO Ot F41.9 ANXIETY DISORDER, UNSPECIFIED 08/23/2019 MARLENA HURTADO Ot I47.1 SUPRAVENTRICULAR TACHYCARDIA 08/23/2019 MARLENA HURTADO Ot I65.23 OCCLUSION AND STENOSIS OF BILATERAL HERNANDEZ 08/23/2019 MARLENA HURTADO Ot 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 08/23/2019 MARLENA HURTADO Ot I80.209 PHLBTS AND THOMBOPHLB OF UNSP DEEP VESSE 08/23/2019 MARLENA HURTADO Ot J44.9 CHRONIC OBSTRUCTIVE PULMONARY DISEASE, U 08/23/2019 MARLENA HURTADO Ot Z79.899 OTHER USP (CURRENT) DRUG THERAPY 08/26/2019 DAPHNE YUSUF FAN MAIL EDITOR Ot I73.9 PERIPHERAL VASCULAR DISEASE, UNSPECIFIED 08/26/2019 NAM GASPAR FAN MAIL EDITOR Ot R06.02 SHORTNESS OF BREATH 08/26/2019 NAM GASPAR FAN MAIL EDITOR Ot R60.9 EDEMA, UNSPECIFIED 08/26/2019 JESSICA GUALLPA, ALI FACP CCDS Ot R06.02 SHORTNESS OF BREATH 08/26/2019 GERALD, KETAN E [employer] C[employer] HOME MOTHER Ot G47.9 SLEEP DISORDER, UNSPECIFIED 08/26/2019 GERALD, KETAN E [employer] C[employer] HOME MOTHER Ot J44.9 CHRONIC OBSTRUCTIVE PULMONARY DISEASE, U 08/26/2019 GERALD, KETAN E [employer] C[employer] HOME MOTHER Ot R05 COUGH 08/26/2019 GERALD, KETAN E [employer] C[employer] HOME MOTHER Ot R06.2 WHEEZING 08/26/2019 GERALD, KETAN E [employer] C[employer] HOME MOTHER Ot F17.201 NICOTINE DEPENDENCE, UNSPECIFIED, IN REM 08/26/2019 GERALD KETAN E DAY C[employer] HOME MOTHER Ot J44.9 CHRONIC OBSTRUCTIVE PULMONARY DISEASE, U 08/26/2019 GERALD KETAN E DAY CARE HOME MOTHER Ot R05 COUGH 08/26/2019 GERALD KETAN E DAY CARE HOME MOTHER Ot R06.2 WHEEZING 08/26/2019 LULÚ MCKEON DO [...] FACC, ALI FACP CCDS Ot 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 08/26/2019 JESSICA ALFORD FACC, ALI FACP CCDS Ot M06.9 RHEUMATOID ARTHRITIS, UNSPECIFIED 08/26/2019 JESSICA ALFORD FACC, ALI FACP CCDS Ot M79.89 OTHER SPECIFIED SOFT TISSUE DISORDERS 08/26/2019 JESSICA ALFORD FACC, ALI FACP CCDS Ot R07.89 OTHER CHEST PAIN 08/26/2019 JESSICA ALFORD [facility], ALI FACP CCDS Ot D63.8 ANEMIA IN OTHER CHRONIC DISEASES CLASSIF 08/26/2019 JESSICA ALFORD [facility], ALI FACP CCDS Ot I47.1 SUPRAVENTRICULAR TACHYCARDIA 08/26/2019 JESSICA ALFORD [facility], ALI FACP CCDS Ot 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 08/26/2019 JESSICA ALFORD [facility], ALI FACP CCDS Ot M06.9 RHEUMATOID ARTHRITIS, UNSPECIFIED 08/26/2019 JESSICA ALFORD [facility], ALI FACP CCDS Ot M79.89 OTHER SPECIFIED SOFT TISSUE DISORDERS 08/26/2019 JESSICA ALFORD [facility], ALI FACP CCDS Ot R07.89 OTHER CHEST PAIN 08/26/2019 MARLENA HURTADO Ot E11.59 TYPE 2 DIABETES MELLITUS WITH OTH CIRCUL 08/26/2019 MARLENA HURTADO Ot F17.210 NICOTINE DEPENDENCE, CIGARETTES, UNCOMPL 08/26/2019 MARLENA HURTADO Ot F41.9 ANXIETY DISORDER, UNSPECIFIED 08/26/2019 MARLENA HURTADO Ot I47.1 SUPRAVENTRICULAR TACHYCARDIA 08/26/2019 MARLENA HURTADO Ot I65.23 OCCLUSION AND STENOSIS OF BILATERAL HERNANDEZ 08/26/2019 MARLENA HURTADO Ot 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 08/26/2019 MARLENA HURTADO Ot I80.209 PHLBTS AND THOMBOPHLB OF UNSP DEEP VESSE 08/26/2019 MARLENA HURTADO Ot J44.9 CHRONIC OBSTRUCTIVE PULMONARY DISEASE, U 08/26/2019 MARLENA HURTADO Ot Z79.899 OTHER USP (CURRENT) DRUG THERAPY 08/26/2019 JANEY ALFORD, GRETEL [...] I70.0 ATHEROSCLEROSIS OF [place] 08/26/2019 DAPHNE YUSUF FAN MAIL EDITOR Ot I70.203 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 08/26/2019 DAPHNE YUSUF FAN MAIL EDITOR Ot 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 [...] ALFORD FACC, ALI FACP CCDS Ot Z79.01 REHABILITATION THERAPY AIDE (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 OF ANTICOAGULANT 08/26/2019 JESSICA ALFORD FACC, ALI FACP CCDS Ot Z79.82 USP (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 08/26/2019 JESSICA ALFORD FACC, ALI FACP CCDS Ot Z79.899 OTHER REHABILITATION THERAPY AIDE (CURRENT) DRUG THERAPY 08/26/2019 JESSICA ALFORD FACC, ALI FACP CCDS Ot Z86.718 PERSONAL HISTORY OF OTHER VENOUS THROMBO 08/26/2019 JESSICA ALFORD FACC, ALI FACP CCDS Ot Z87.891 PERSONAL HISTORY OF NICOTINE DEPENDENCE 08/26/2019 JESSICA GUALLPA, AUGIE FAC CCDS Ot Z95.820 PERIPHERAL VASCULAR ANGIOPLASTY STATUS W 08/26/2019 MARJORIE EDUARDO FAN MAIL EDITOR Ot I08.1 RHEUMATIC DISORDERS OF BOTH MITRAL AND T 08/26/2019 MARJORIE EDUARDO FAN MAIL EDITOR Ot I48.3 TYPICAL ATRIAL FLUTTER 08/26/2019 DAPHNE YUSUF FAN MAIL EDITOR Ot R59.0 LOCALIZED ENLARGED LYMPH NODES 08/26/2019 DAPHNE YUSUF FAN MAIL EDITOR Ot Z85.819 PRSNL HX OF MALIG NEOPLM OF UNSP SITE LI 08/26/2019 PILI YUSUFA FAN MAIL EDITOR Ot Z98.890 OTHER SPECIFIED POSTPROCEDURAL STATES 08/26/2019 PILI YUSUFA FAN MAIL EDITOR Ot R59.0 LOCALIZED ENLARGED LYMPH NODES 08/26/2019 MADELIN DAPHNE FAN MAIL EDITOR Ot Z98.890 OTHER SPECIFIED POSTPROCEDURAL STATES 08/26/2019 KETAN DUARTE [employer] MOTHER Ot G47.36 SLEEP RELATED HYPOVENTILATION IN CONDITI 08/26/2019 KETAN DUARTE [employer] MOTHER Ot I25.10 ATHSCL HEART DISEASE OF [place] CORONARY 08/26/2019 KETAN DUARTE [employer] MOTHER Ot J30.9 ALLERGIC RHINITIS, UNSPECIFIED 08/26/2019 KETAN DUARTE [employer] MOTHER Ot J44.9 CHRONIC OBSTRUCTIVE PULMONARY DISEASE, U 08/26/2019 KETAN DUARTE [employer] MOTHER Ot K80.20 CALCULUS OF GALLBLADDER W/O CHOLECYSTITI 08/26/2019 KETAN DUARTE [employer] C[employer] MOTHER Ot R91.8 OTHER NONSPECIFIC ABNORMAL FINDING OF [place] 08/26/2019 KETAN DUARTE [employer] MOTHER Ot Z72.0 TOBACCO USE 08/26/2019 MARJORIE EDUARDO FAN MAIL EDITOR Ot I48.92 UNSPECIFIED ATRIAL FLUTTER 08/26/2019 MARCUS [...] OF OTHER VASCULAR IMPLANTS AND 08/30/2019 MARCUS MONAOC MD, Ot Z96.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 08/30/2019 MARCUS MONACO MD, Ot Z98.890 OTHER SPECIFIED POSTPROCEDURAL STATES 09/05/2019 DAPHNE YUSUF Ot I73.9 PERIPHERAL VASCULAR DISEASE, UNSPECIFIED 09/05/2019 NAM GASPAR F[employer] MAIL EDITOR Ot R06.02 SHORTNESS OF BREATH 09/05/2019 NAM GASPAR FAN MAIL EDITOR Ot R60.9 EDEMA, UNSPECIFIED 09/05/2019 JESSICA ALFORD FAC, AUGIE ELI CCDS Ot R06.02 SHORTNESS OF BREATH 09/05/2019 KETAN DUARTE [employer] MOTHER Ot G47.9 SLEEP DISORDER, UNSPECIFIED 09/05/2019 MARYCHUY DUARTEINE E [employer] HOME MOTHER Ot J44.9 CHRONIC OBSTRUCTIVE PULMONARY DISEASE, U 09/05/2019 GERALD KETAN E [employer] C[employer] HOME MOTHER Ot R05 COUGH 09/05/2019 GERALD KETAN E [employer] C[employer] HOME MOTHER Ot R06.2 WHEEZING 09/05/2019 GERALD KETAN E [employer] C[employer] MOTHER Ot F17.201 NICOTINE DEPENDENCE, UNSPECIFIED, IN REM 09/05/2019 MARYCHUY DUARTEINE Anmol [employer] MOTHER Ot J44.9 CHRONIC OBSTRUCTIVE PULMONARY DISEASE, U 09/05/2019 MARYCHUY DUARTEINE E [employer] C[employer] HOME MOTHER Ot R05 COUGH 09/05/2019 GERALD KETAN E [employer] C[employer] HOME MOTHER Ot R06.2 WHEEZING 09/05/2019 LULÚ MCKEON DO [...] UNSPECIFIED 09/05/2019 JANEY ALFORD, GRETEL Brannon Ot Z01.818 ENCOUNTER FOR OTHER PREPROCEDURAL EXAMIN 09/05/2019 JESSICA ALFORD FACC, ALI FACP CCDS Ot D63.8 ANEMIA IN OTHER CHRONIC DISEASES CLASSIF 09/05/2019 JESSICA ALFORD FACC, ALI FACP CCDS Ot I47.1 SUPRAVENTRICULAR TACHYCARDIA 09/05/2019 JESSICA ALFORD FACC, ALI FACP CCDS Ot 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 09/05/2019 JESSICA ALFORD FACC, ALI FACP CCDS Ot M06.9 RHEUMATOID ARTHRITIS, UNSPECIFIED 09/05/2019 JESSICA ALFORD FACC, ALI FACP CCDS Ot M79.89 OTHER SPECIFIED SOFT TISSUE DISORDERS 09/05/2019 JESSICA ALFORD FACC, ALI FACP CCDS Ot R07.89 OTHER CHEST PAIN 09/05/2019 JESSICA ALFORD FACC, ALI FACP CCDS Ot D63.8 ANEMIA IN OTHER CHRONIC DISEASES CLASSIF 09/05/2019 JESSICA ALFORD FACC, ALI FACP CCDS Ot I47.1 SUPRAVENTRICULAR TACHYCARDIA 09/05/2019 JESSICA ALFORD FACC, ALI FACP CCDS Ot 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 09/05/2019 JESSICA [...] HERNANDEZ 09/05/2019 MARLENA HURTADO Ot 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 09/05/2019 MARLENA HURTADO Gloria Ot I80.209 PHLBTS AND THOMBOPHLB OF UNSP DEEP VESSE 09/05/2019 MARLENA HURTADO Gloria Ot J44.9 CHRONIC OBSTRUCTIVE PULMONARY DISEASE, U 09/05/2019 MARLENA HURTADO Gloria Ot Z79.899 OTHER REHABILITATION THERAPY AIDE (CURRENT) DRUG THERAPY 09/05/2019 JANEY ALFORD, GRETEL [...] 09/05/2019 DAPHNE YUSUF Ot I70.203 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 09/05/2019 DAPHNE YUSUF Ot [...] PERIPHERAL VASCULAR DISEASE, UNSPECIFIED 09/05/2019 [facility]I FACP CCDS Ot J44.9 CHRONIC OBSTRUCTIVE PULMONARY DISEASE, U 09/05/2019 JESSICA ALFORD [facility], ALI FACP CCDS Ot R00.2 PALPITATIONS 09/05/2019 JESSICA ALFORD [facility], ALI FACP CCDS Ot Z68.31 BODY MASS INDEX (BMI) 31.0-31.9, ADULT 09/05/2019 JESSICA ALFORD [facility], ALI FACP CCDS Ot Z79.01 REHABILITATION THERAPY AIDE (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 OF ANTICOAGULANT 09/05/2019 JESSICA ALFORD [facility], ALI FACP CCDS Ot Z79.82 REHABILITATION THERAPY AIDE (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 09/05/2019 JESSICA ALFORD [facility], ALI FACP CCDS Ot Z79.899 OTHER REHABILITATION THERAPY AIDE (CURRENT) DRUG THERAPY 09/05/2019 JESSICA ALFORD [facility], ALI FACP CCDS Ot Z86.718 PERSONAL HISTORY OF OTHER VENOUS THROMBO 09/05/2019 JESSICA ALFORD [facility], ALI FACP CCDS Ot Z87.891 PERSONAL HISTORY OF NICOTINE DEPENDENCE 09/05/2019 JESSICA ALFORD [facility], ALI FACP CCDS Ot Z95.820 PERIPHERAL VASCULAR ANGIOPLASTY STATUS W 09/05/2019 MARJORIE EDUARDO [employer] EDITOR Ot I08.1 RHEUMATIC DISORDERS OF BOTH MITRAL AND T 09/05/2019 MARJORIE EDUARDO [employer] Ot I48.3 TYPICAL ATRIAL FLUTTER 09/05/2019 DAPHNE YUSUF [employer] Ot R59.0 LOCALIZED ENLARGED LYMPH NODES 09/05/2019 DAPHNE YUSUF [employer] Ot Z85.819 PRSNL HX OF MALIG NEOPLM OF [facility] SITE LI 09/05/2019 DAPHNE YUSUF [employer] Ot Z98.890 OTHER SPECIFIED POSTPROCEDURAL STATES 09/05/2019 DAPHNE YUSUF [employer] Ot R59.0 LOCALIZED ENLARGED LYMPH NODES 09/05/2019 DAPHNE YUSUF [employer] Ot Z98.890 OTHER SPECIFIED POSTPROCEDURAL STATES 09/05/2019 KETAN DUARTE APRN Ot G47.36 SLEEP RELATED HYPOVENTILATION IN CONDITI 09/05/2019 KETAN DUARTE APRN Ot I25.10 ATHSCL HEART DISEASE OF [place] CORONARY 09/05/2019 KETAN DUARTE APRN Ot J30.9 ALLERGIC RHINITIS, UNSPECIFIED 09/05/2019 KETAN DUARTE APRN Ot J44.9 CHRONIC OBSTRUCTIVE PULMONARY DISEASE, U 09/05/2019 KETAN DUARTE APRN Ot K80.20 CALCULUS OF GALLBLADDER W/O CHOLECYSTITI 09/05/2019 KETAN DUARTE APRN Ot R91.8 OTHER NONSPECIFIC ABNORMAL FINDING OF [place] 09/05/2019 KETAN DUARTE APRN Ot Z72.0 TOBACCO USE 09/05/2019 ALESHA MARJORIE Carlyn [employer] Ot I48.92 UNSPECIFIED ATRIAL FLUTTER 09/05/2019 MARCUS [...] OTHER INTERNAL PROSTH DEV/GR 10/18/2019 MARCUS MONACO MD Ot Z51.0 ENCOUNTER FOR [...] OF MALIG NEOPLM OF SITE OF LIP, 11/07/2019 PALOMO SALAZAR APRN Ot F03.90 UNSPECIFIED DEMENTIA WITHOUT BEHAVIORAL 11/07/2019 PALOMO SALAZAR APRN Ot F32 .9 MAJOR DEPRESSIVE DISORDER, SINGLE EPISOD 11/07/2019 PAOLMO SALAZAR APRN Ot F41 .9 ANXIETY DISORDER, UNSPECIFIED 11/07/2019 PALOMO SALAZAR APRN Ot I73 .9 PERIPHERAL VASCULAR DISEASE, UNSPECIFIED 11/07/2019 PALOMO SALAZAR APRN Ot J43 .9 EMPHYSEMA, UNSPECIFIED 11/07/2019 PALOMO SALAZAR APRN Ot M06 .9 RHEUMATOID ARTHRITIS, UNSPECIFIED 11/07/2019 PALOMO SALAZAR APRN Ot R04 .0 EPISTAXIS 11/07/2019 PALOMO SALAZAR APRN Ot Z79.01 USP (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 OF ANTICOAGULANT 11/07/2019 PALOMO SALAZAR APRN Ot Z79.82 USP (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 11/07/2019 PALOMO SALAZAR APRN Ot Z85.819 [facility] 11/07/2019 PALOMO SALAZAR APRN Ot Z86.73 PRSNL HX OF TIA (TIA), AND CEREB INFRC W 11/07/2019 PALOMO SALAZAR APRN Ot Z88 .1 ALLERGY STATUS TO OTHER ANTIBIOTIC AGENT 11/07/2019 PALOMO SALAZAR APRN Ot Z88 .8 ALLERGY STATUS TO OTH DRUG/MEDS/BIOL SUB 11/07/2019 PALOMO SALAZAR APRN Ot Z89.432 ACQUIRED ABSENCE OF LEFT FOOT 11/07/2019 PALOMO SALAZAR APRN Ot Z99.81 DEPENDENCE ON SUPPLEMENTAL OXYGEN 11/07/2019 Ot C04.1 INGA GNANT NEOPLASM OF LATERAL FLOOR OF M 11/07/2019 Ot C14.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, ORAL 11/07/2019 Ot F32.9 RICARDO R DEPRESSIVE DISORDER, SINGLE EPISOD 11/07/2019 Ot F41.9 ANXI ETY DISORDER, UNSPECIFIED 11/07/2019 Ot I47.1 SUPR AVENTRICULAR TACHYCARDIA 11/07/2019 Ot I80.209 PH LBTS AND THOMBOPHLB OF [facility] DEEP VESSE 11/07/2019 Ot K59.00 CON STIPATION, UNSPECIFIED 11/07/2019 Ot M19.90 UNS PECIFIED OSTEOARTHRITIS, UNSPECIFIED 11/07/2019 Ot T85.848A P AIN DUE TO OTHER INTERNAL PROSTH DEV/GR 11/07/2019 Ot Z51.11 ENC OUNTER FOR ANTINEOPLASTIC CHEMOTHERAP 11/07/2019 Ot Z80.9 FAMI LY HISTORY OF MALIGNANT NEOPLASM, UN 11/07/2019 Ot Z89.432 AC QUIRED ABSENCE OF LEFT FOOT 11/07/2019 Ot Z93.1 CONRADO ROSTOMY STATUS 11/07/2019 Ot Z95.5 PRES ENCE OF CORONARY ANGIOPLASTY IMPLANT 11/07/2019 Ot Z95.828 MO ESENCE OF OTHER VASCULAR IMPLANTS AND 11/07/2019 Ot Z96.659 MO ESENCE OF UNSPECIFIED ARTIFICIAL KNEE 11/07/2019 Ot Z98.890 OT HER SPECIFIED POSTPROCEDURAL STATES 11/09/2019 [facility]ST[facility] DOAVTAR Ot D72.829 ELEVATED WHITE BLOOD CELL COUNT, UNSPECI 11/09/2019 [facility] Ot E78.00 PURE HYPERCHOLESTEROLEMIA, UNSPECIFIED 11/09/2019 MYSTIC DO, AVTAR K Ot F32.9 MAJOR DEPRESSIVE DISORDER, SINGLE EPISOD 11/09/2019 MYSTIC DOAVTAR Ot F41.9 ANXIETY DISORDER, UNSPECIFIED 11/09/2019 [facility] Ot J43.9 EMPHYSEMA, UNSPECIFIED 11/09/2019 [facility] Ot R04.0 EPISTAXIS 11/09/2019 [facility] Ot Z79.01 REHABILITATION THERAPY AIDE (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 OF ANTICOAGULANT 11/09/2019 [facility] Ot Z79.82 USP (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 11/09/2019 [facility] Romelia Ot Z80.1 FAMILY HISTORY OF MALIG NEOPLASM OF TRAC 11/09/2019 [facility] Ot Z82.49 FAMILY HX OF ISCHEM HEART DIS AND OTH DI 11/09/2019 [facility] Ot Z85.818 PRSNL HX OF MALIG NEOPLM OF SITE OF LIP, 11/09/2019 [facility] Ot Z86.73 PRSNL HX OF TIA (TIA), AND CEREB INFRC W 11/09/2019 [facility] Ot Z87.891 PERSONAL HISTORY OF NICOTINE DEPENDENCE 11/09/2019 [facility] Ot Z88.1 ALLERGY STATUS TO OTHER ANTIBIOTIC AGENT 11/09/2019 [facility] Ot Z88.8 ALLERGY STATUS TO OTH DRUG/MEDS/BIOL SUB Procedures Code Description [place] [address] THER APUTIC INJ SQ/IM 05/16/2013 J0696 ROCE PHIN INJ 05/16/2013 99083 XRAY CHEST 2 VIEW 06/07/2013 42338 ROUT INE VENIPUNCTURE 08/04/2013 73642 EKG, TRACING (IN-HOUSE) 08/04/2013 44235 CBC 08/04/2013 [id number] GF R CALC (RESULT ONLY) 08/04/2013 81909 CMP 08/04/2013 52650 LIPI D PANEL 08/04/2013 40104 MAGNESIUM 08/04/2013 42515 TSH 08/04/2013 Cardiolog Augie Fong 08/05/2013 84.12 AMPU TATION THROUGH FOOT 08/06/2013 86.22 EXCI S DEBRIDE OF WOUND, INFECT, OR BURN 08/08/2013 Orthopedi Reveal, Marissa 08/25/2013 Orthopedi Reveal, Marissa 08/25/2013 335809 CANDY RITOX DRUG SCREEN 11/17/2013 General S Jorge August 02/15/2014 29774 ROUT INE VENIPUNCTURE 03/09/2014 46562 XRAY CERVICAL SPINE, 2 OR 3 VIEWS 03/09/2014 09978 XRAY HAND RIGHT 2 VIEWS 03/09/2014 35741 XRAY ANKLE R, 2 VIEWS 03/09/2014 56046 CBC 03/09/2014 46827 CMP 03/09/2014 42654 LIPI D PANEL 03/09/2014 1252116 GF R CALC (RESULT ONLY) 03/09/2014 82492 TSH 03/09/2014 17548 ROUT INE VENIPUNCTURE 06/22/2014 7006339 GF R CALC (RESULT ONLY) 06/22/2014 24449 CMP 06/22/2014 06199 LIPI D PANEL 06/22/2014 44037 INJ TENDON SHEATH/LIGAMENT 07/20/2014 22483 JOIN T INJECTION - SMALL JOINT 07/20/2014 J1030 DEPO MEDROL 40 MG INJ 07/20/2014 99947 AMERITOX 10/25/2014 Physical P hysical Therapy 11/03/[address]/INFUSE THROMBOLYTIC AGENT 01/03/[id number] OF R KNEE JT WITH SYNTH SUB, ZAINAB 12/24/2016 [id number] IN SERTION OF INFUSION DEV INTO SUP VENA 01/06/2017 [id number] IN SERTION OF INFUSION DEV INTO SUP VENA 04/09/2017 Results Test Result Range Clostridium difficile detection - 22:50 C DIFF MOLECULAR RESULT Negative for toxigen ic C diff by DNA amplification NRG Stool bacteria identification by culture - 01/08/16 22:50 FREE TEXT EXTERNAL CONFIRMED BY [facility], SEE COMMENT NRG QUANTITY OF GROWTH Isolated NRG Stool bacteria identification by culture [id number] NRG NOT CULTURED VIBRIOTYERS VIBRIO AND YERSINIA [...] (SGPT) 10 IU/L 0-32 Antinuclear Ab Reflex [place] - 04/01/16 08:55 JEMMA Direct Negative Negative [...] OF GROWTH Isolated NRG Bacterial blood culture [id number] NR Blood lactic acid measurement (moles/vol ume) [...] Whole blood basic metabolic panel - 04/14 016 04:46 Serum or plasma sodium measurement (moles/volume) [...] 0.0-0.1 Whole blood basic metabolic panel - 12 4 06:35 Serum or plasma sodium measurement (moles/volume) [...] d white blood cell (WBC) differential - 12/05/16 05:24 Blood leukocytes automated count (number/volume) 14.1 [...] 0.0-0.1 Whole blood basic metabolic panel - 11/25 05:24 Serum or plasma sodium measurement (moles/volume) [...] anisocytosis detection by light microscopy [facility] Comprehensive metabolic panel - 07/22/16 12:00 Serum [...] TO CINTHIA RIZVI 8:25 BY Domenica MULTANI NRG SPECIAL CONTACT SPECIAL CONTACT PRECAUTIONS NEEDED NRG [...] NRG Manual blood basophils/100 leukocytes 0 % NR Blood anisocytosis detection by light microscopy [facility] Comprehensive metabolic panel - 07/25/16 06:00 Serum [...] Automated blood platelet mean volume measurement 9.5 [fo_us] 7.4-10.4 Automated blood neutrophils/100 leukocytes 48 % [...] 3.2-4.5 Blood type T Indirect antibody screen [facility] ladonna - 12/17/16 10:20 ABO+Rh group AN NRG [...] NRG Blood type T Indirect antibody screen [facility] - 12/24/16 06:13 ABO+Rh group AN NRG Transfusion band number [id number] NRG Blood group antibody screen NEGATIVE NR G Whole blood hemoglobin and hematocrit [facility] - 12/25/16 06:09 Venous blood hemoglobin measurement [...] Manual blood segmented neutrophils/100 leukocytes 73 % NR Manual blood lymphocytes/100 leukocytes 21 % NR Blood basophilic stippling detection by light microsco [...] NRG Serum or plasma glucose measurement (mass/volume) 111 [...] NEGATIVE FOR ANTIGEN AND TOXIN A/B NRG Complete [...] finding identification by light micr oscopy YES NR Comprehensive metabolic panel - 12/29/16 07:28 Serum [...] calculation of estimated glomerular filtration rate > NR Serum or plasma glucose measurement (mass/volume) 84 [...] - 01/06/17 23:31 Bacterial blood culture NG NRG Blood lactic acid measurement (moles/vol ume) - 01/06/17 23:33 Blood lactic acid measurement (moles/volume) 0.80 mmol/L 0.50-2.00 Bacterial blood culture - 01/06/17 23:33 Bacterial blood culture NG NRG Complete urinalysis [...] OF GROWTH Isolated NRG Bacterial blood culture [id number] NRG Bacterial blood culture - 04/09/17 12:27 [...] NRG Stool bacteria identification by culture - 04/11/17 [...] plasma calcium measurement (mass/volume) 9.7 mg/dL 8.5-10.1 [id number] - 09/21/18 10:59 Serum or plasma urea [...] - 10/30/18 18:55 Bacterial blood culture NG NRG Methicillin resistant Staphylococcus aur eus (MRSA) screening culture - 06/08/19 10:00 Methicillin resistant Staphylococcus aureus (MRSA) scr eening culture NEG NRG Methicillin resistant Staphylococcus aur eus (MRSA) screening culture - 07/08/19 08:33 Methicillin resistant Staphylococcus aureus (MRSA) scr eening culture NEG NRG Influenza virus A and B antigen detectio n - 08/01/19 09:29 CALL POSITIVES (F1 HELP) CALLED TO BAUTISTA AT 1027 [facility] FLU RESULT POSITIVE FOR INFLUENZA B ANT IGEN, NEG FOR A ANTIGEN, BY [place] [facility] Complete blood count (CBC) with automate [...] ENTRY 2 PRELIM RAPID ID TEST AT [facility] 08/02 7:55 NRG FREE TEXT ENTRY 3 RML CONFIRMED ID 08/03/19 17:05 NRG Bacterial sputum culture [id number] NRG Bacterial blood culture - 08/01/19 12:23 [...] ENTRY 2 PRELIM RAPID ID TEST AT [facility] 08/17 9:45 NRG FREE TEXT ENTRY 3 [...] 2 SEE COMMENTS NRG Bacterial sputum culture [id number] NRG RED CELLS LEUKO REDUCED AS1 - 08/16/19 1 4:47 RED CELLS LEUKO REDUCED AS1 N OT AVAILABLE NRG Blood type T Indirect antibody screen pa ladonna - 08/16/19 14:47 WRISTBAND NUMBER [id number] NRG ABO+Rh group AN NRG Blood group [...] 0.0 10*3/uL 0.0-0.1 Comprehensive metabolic panel - 11/07/19 10:05 Serum or plasma sodium measurement (moles/volume) 139 [...] 70-105 Serum or plasma calcium measurement (mass/volume) 9.9 mg/dL 8.5-10.1 Serum or plasma total bilirubin [...] measurement (mass/volume) 3.8 g/dL 3.2-4.5 CALCIUM CORRECTED 10.1 mg/dL 8.5-10.1 PT panel in platelet poor plasma by coag ulation assay - 11/07/19 10:05 Prothrombin time (PT) in platelet poor plasma by coagu lation assay 16.7 s 12.2-14.7 INR in platelet poor plasma or blood by coagulation as say 1.3 0.8-1.4 Activated partial thromboplastin time (a PTT) in platelet poor plasma bycoagulation assay - 11/07/19 10:05 Activated partial thromboplastin time (a PTT) in platelet poor plasma bycoagulation assay 37 s 24-35 Manual absolute plasma cell count - 10/12 01/29 10:05 Blood monocytes/100 leukocytes 2 % NRG Manual blood segmented neutrophils/100 leukocytes 90 % NRG Blood band neutrophils/100 leukocytes 2 % NRG Manual blood lymphocytes/100 leukocytes 4 % NRG Manual eosinophils/100 leukocytes in nose 1 % NRG Manual blood basophils/100 leukocytes 1 % NRG Blood erythrocyte morphology finding identification NORMAL NRG Encounters ACCT No. Visit Date/Time Discharge Status Pt. Type Provider Facility Loc./Unit Complaint [id number] 11/03/2014 09:04:00 11/03/2014 23:59: 59 CLS Outpatient [facility], DAPHNE S [id number] 10/25/2014 15:45:00 10/25/2014 23:59: 59 CLS Outpatient [facility] DAPHNE S [id number] 07/20/2014 12:26:00 07/20/2014 23:59: 59 CLS Outpatient HAO PEREZ APRN [id number] 06/22/2014 10:24:00 06/22/2014 23:59: 59 CLS Outpatient [facility], DAPHNE S [id number] 04/13/2014 14:23:00 04/13/2014 23:59: 59 CLS Outpatient HAO EPREZ APRN [id number] 03/09/2014 11:12:00 03/09/2014 23:59: 59 CLS Outpatient [facility], DAPHNE S [id number] 03/09/2014 11:12:00 03/09/2014 23:59: 59 CLS Outpatient [facility], DAPHNE S [id number] 11/08/2013 10:10:00 11/08/2013 23:59: 59 CLS Outpatient [facility], DAPHNE S [id number] 08/29/2013 07:22:00 08/29/2013 23:59: 59 CLS Outpatient MIKHAIL RIVAS MD [id number] 08/04/2013 09:29:00 08/04/2013 23:59: 59 CLS Outpatient [facility], DAPHNE S [id number] 08/01/2013 15:38:00 08/01/2013 23:59: 59 CLS Outpatient [facility], DAPHNE S [id number] 06/29/2013 14:03:00 06/29/2013 23:59: 59 CLS Outpatient [facility], DAPHNE S [id number] 06/07/2013 15:49:00 06/07/2013 23:59: 59 CLS Outpatient [facility], DAPHNE S [id number] 05/28/2013 12:56:00 05/28/2013 23:59: 59 CLS Outpatient [facility], DAPHNE S [id number] 04/01/2018 11:12:00 04/01/2018 23:59: 00 DIS Outpatient Calderon Mayer [id number] 09/24/2017 11:17:00 09/24/2017 23:59: 00 DIS Outpatient Calderon Mayer [id number] 05/07/2016 10:06:00 Document Registration [id number] 11/07/2019 09:36:00 11:01:00 DIS Outpatient AVTAR WILDER DO, V [facility] ER NOSE BLEED [id number] 11/05/2019 13:42:00 14:45:00 DIS Outpatient PALOMO SALAZAR APRN [facility] ER COUGH [id number] 09/16/2019 11:59:00 00:01:00 DIS Outpatient MARCUS MONACO MD, V [facility] ONC [id number] 09/16/2019 11:19:00 23:59:59 CLS Outpatient MARCUS MONACO MD, V [facility] RAD CANCER OF MOUTH,SEIZURE [id number] 09/05/2019 10:03:00 23:59:59 CLS Outpatient MARCUS MONACO MD, V [facility] RAD CA OF MOUTH [id number] 08/16/2019 15:53:00 13:10:00 DIS Inpatient SATNAM MIKE MD Via [facility] CSD PNEUMONIA,ANEMAI,BILAT SEGMENTAL PE [id number] 08/01/2019 08:52:00 14:04:00 DIS Emergency BALJIT BOLANOS MD Via [facility] ER FEEDING TUBE IS SUES [id number] 07/12/2019 11:16:00 020 10:28:00 DIS Outpatient MARCUS MONACO MD, V [facility] ONC [id number] 07/08/2019 08:22:00 019 13:55:00 DIS Outpatient JEANNE EASON DO Via [facility] CANCER OF THE MOUTH [id number] 07/05/2019 13:04:00 13:27:00 DIS Outpatient JEANNE EASON DO Via [facility] PREOP CANCER OF THE MOUTH [id number] 06/08/2019 09:29:00 12:35:00 DIS Outpatient JEANNE EASON DO Via [facility] SCCA MOUTH [id number] 06/07/2019 11:24:00 12:21:00 DIS Outpatient JEANNE EASON DO Via [facility] PREOP PORT PLACEMENT [id number] 05/03/2019 07:26:00 23:59:59 CLS Outpatient MARJORIE EDUARDOP Via [facility] CARD SOB [id number] 04/18/2019 10:45:00 23:59:59 CLS Outpatient KETAN DUARTE APRN Via [facility] RT SOB,TOBACCO USE,COPD,COUGH,ALLERGIC RHINITIS [id number] 10/30/2018 18:17:00 20:02:00 DIS Emergency DANA HUMPHREY MD Via [facility] ER FEVER [id number] 09/21/2018 10:33:00 23:59:59 CLS Outpatient DAPHNE YUSUFP Via [facility] RAD LYMPHADENOPATHY OF LT CERVICAL REGION [id number] 09/16/2018 13:07:00 23:59:59 CLS Outpatient DAPHNE YUSUF [employer] Via [facility] RAD LYMPHADENOPATHY [id number] 09/02/2018 10:29:00 12:59:00 DIS Emergency PALOMO SALAZAR [employer] [facility] ER LEFT LEG PAIN [id number] 08/18/2018 12:49:00 23:59:59 CLS Outpatient MARJORIE EDUARDOP [facility] CARD MITRAL REGURGIT ATION [id number] 04/06/2018 07:56:00 018 23:59:59 CLS Outpatient JESSICA ALFORD FACC, AUGIE ELI CC DS Via [facility] CATH AV SLIM RE -ENTRY TACHYCARDIA [id number] 03/18/2018 16:39:00 018 18:25:00 DIS Emergency DANA HUMPHREY MD Via [facility] ER PROBLEMS WITH F EEDING TUBE,BACK PAIN [id number] 03/05/2018 08:56:00 018 23:59:59 CLS Outpatient ADELE ANN Via [facility] RAD DYSPHAGIA [id number] 12/03/2017 13:15:00 018 14:53:00 DIS Emergency PALOMO SALAZAR APRN Via [facility] ER SOB [id number] 10/14/2017 11:51:00 018 23:59:59 CLS Outpatient DAPHNE YUSUF Via [facility] RAD LUQ PAIN [id number] 06/01/2017 10:15:00 017 23:59:59 CLS Preadmit LULÚ MCKEON DO Via [facility] RAD COPD J43.8 [id number] 04/09/2017 13:00:00 017 14:15:00 DIS Inpatient JULIA JIMENEZ DO Via [facility] 4TH SEPSIS PNEUMO DEANNE [id number] 01/07/2017 00:15:00 017 13:43:00 DIS Inpatient ALPESH LUNA MD Via [facility] 4TH SEVERE SEPSIS;PNEUMONIA W/HYPOXIA;CELLULITIS R LEG [id number] 12/24/2016 05:57:00 017 12:57:00 DIS Inpatient SABINO MADERA MD Via [facility] 4TH RIGHT KNEE OSTEOARTHRIT IS [id number] 11/14/2016 13:29:00 017 16:13:00 DIS Outpatient DAPHNE YUSUF Via [facility] REHAB GENERAL WEAKNESS [id number] 12/17/2016 09:56:00 017 14:51:00 DIS Outpatient SANTY ALFORD, SABINO Cruz Via [facility] PREOP RIGHT KNEE OSTEOARTHRI TIS [id number] 12/15/2016 12:53:00 017 23:59:59 CLS Outpatient MIKE IYER LULÚ M [facility] RT J43.8 COPD [id number] 11/19/2016 12:28:00 23:59:59 CLS Outpatient KETAN DUARTE APRN Via [facility] RAD R91.1,R09.02,Z7 2.0 [id number] 08/21/2016 07:15:00 017 23:59:59 CLS Outpatient JANEY ALFORD, GRETEL Brannon Via [facility] ENDO C-DIFF [id number] 07/28/2016 00:10:00 017 23:59:59 CLS Preadmit MARLENA HURTADO Via [facility] ONC [id number] 04/28/2016 14:43:00 017 00:01:00 DIS Outpatient MARLENA HURTADO V ia [facility] ONC [id number] 07/22/2016 14:39:00 017 11:00:00 DIS Inpatient JAMES CARTAGENA MD Via [facility] 4TH DIARRHEA DEBILITY DEHYD RATION COPD [id number] 06/11/2016 12:25:00 016 14:10:00 DIS Inpatient JAMES CARTAGENA MD Via [facility] 4TH SEPSIS PNEUMONIA DIARRH EA HYPOVOLEMIA [id number] 05/20/2016 08:14:00 016 23:59:59 CLS Outpatient JESSICA ALFORD FACC, AUGIE ELI CC DS [facility] CARD RT LEG SWEL LING,CHEST DISCOMFORT,PAD [id number] 05/10/2016 15:42:00 016 12:00:00 DIS Inpatient MAURO SHI MD Via [facility] 4TH C DIFF. DIARRHEA/RECURR ENT [id number] 05/02/2016 10:20:00 23:59:59 CLS Outpatient JESSICA ALFORD FACC, AUGIE ELI CC DS Via [facility] RAD RT LEG SWELLING,PAD,CHEST DISCOMFORT [id number] 04/21/2016 14:03:00 12:05:00 DIS Inpatient JAMES CARTAGENA MD Via [facility] 4TH FEVER, AMS, DIARRHEA, E LEVATED WBC [id number] 03/27/2016 12:33:00 15:54:00 DIS Outpatient MARLENA HURTADO V ia [facility] ONC [id number] 04/01/2016 07:55:00 23:59:59 CLS Outpatient GRETEL TOTH MD Via [facility] ANEMIA [id number] 03/28/2016 09:54:00 23:59:59 CLS Outpatient GRETEL TOTH MD Via [facility] PREOP ANEMAI [id number] 03/27/2016 10:03:00 12:25:00 DIS Outpatient GRETEL TOTH MD Via [facility] ANEMIA [id number] 03/24/2016 09:35:00 23:59:59 CLS Preadmit DAPHNE YUSUF Via [facility] REHAB STRENGTHENING AND TRANS FERS;RA [id number] 03/24/2016 10:54:00 10:59:00 DIS Outpatient GRETEL TOTH MD Via [facility] PREOP ANEMIA [id number] 02/26/2016 11:18:00 23:59:59 CLS Outpatient DAPHNE YUSUF Via [facility] LAB IRON DIFICIENCY, ANEMI A [id number] 02/03/2016 19:41:00 21:07:00 DIS Emergency DANA HUMPHREY MD Via [facility] ER THROAT SWELLING /PAIN [id number] 01/31/2016 12:51:00 16:30:00 DIS Outpatient GRETEL TOTH MD Via [facility] SDC IRON DEFICIENCY, ANEMI A, DIARRHEA [id number] 01/29/2016 05:48:00 11:03:00 DIS Outpatient GRETEL TOTH MD Via [facility] PREOP IRON DEF., ANEMIA, MARY KATE RRHEA [id number] 01/08/2016 19:23:00 13:50:00 DIS Inpatient JAVON KHAN DO, V ia [facility] 4TH DIARRHEA,LEUKOCYTOSIS [id number] 12/17/2015 12:39:00 23:59:59 CLS Outpatient LULÚ MCKEON DO Via [facility] RT COPD,ANXIETY,SOB,TOBACC O USE [id number] 12/09/2015 10:02:00 13:53:00 DIS Emergency PALOMO SALAZAR [employer] [facility] ER FALL [id number] 11/22/2015 14:45:00 23:59:59 CLS Outpatient KETAN DUARTE APRN [facility] RAD COPD,COUGH,WHEE ZE [id number] 11/20/2015 13:06:00 23:59:59 CLS Outpatient KETAN DUARTE APRN [facility] LAB COPD,COUCH,WHEE ZE,SLEEP DISTURBANCE [id number] 11/20/2015 12:59:00 23:59:59 CLS Outpatient JESSICA ALFORD FACC, AUGIE ELI CC DS [facility] CARD SOB [id number] 11/08/2015 16:25:00 23:59:59 CLS Outpatient NAM GASPAR [facility] RAD SHORTNESS OF BR EATH,EDEMA [id number] 10/23/2015 17:12:00 16:50:00 DIS Inpatient SATNAM MIKE MD Via [facility] 4TH COPD EXACERBATION [id number] 09/04/2015 12:54:00 016 13:33:00 DIS Outpatient DAPHNE YUSUFP Via [facility] REHAB CVA [id number] 06/28/2015 14:51:00 015 23:59:59 CLS Outpatient DAPHNE YUSUFP Via [facility] RAD PVD [id number] 05/24/2015 12:57:00 015 17:00:00 DIS Outpatient MIKHAIL RIVAS MD Via [facility] REHAB CVA [id number] 04/10/2015 13:15:00 015 00:01:00 DIS Outpatient MIKHAIL RIVAS MD Via [facility] REHAB CVA [id number] 01/08/2015 14:27:00 015 12:00:00 DIS Inpatient CORONA ALFORD, JEANNE Corea [facility] IRF CVA [id number] 01/03/2015 17:16:00 015 14:23:00 DIS Inpatient RASHID ALFORD, SATNAM Castro [facility] 4TH CVA [id number] 03/30/2014 10:02:00 014 14:19:00 DIS Outpatient MARIANGEL ALFORD, JORGE Metzger Via [facility] CATH ASOD,LEG PAIN [id number] 02/17/2014 23:10:00 014 16:30:00 DIS Inpatient JAVON KHAN DO, V ia [facility] 4TH PNEUMONIA/COPD FLARE [id number] 02/16/2014 07:57:00 014 13:14:00 DIS Outpatient MARIANGEL ALFORD, JORGE Metzger Via [facility] CATH ASOD,LEG PAIN [id number] 12/22/2013 07:16:00 014 23:59:59 CLS Outpatient MARJORIE EDUARDO Via [facility] CARD PVD,PSVT [id number] 08/06/2013 14:13:00 014 18:01:00 DIS Inpatient MARISSA WYNN MD Via [facility] SURGICAL CP,TACHYCARDIA,SOB [id number] 07/04/2013 10:00:00 23:59:59 CLS Outpatient JUNIOR KWOK MD Via [facility] ANTICOAGULANT THERAPY [id number] 06/27/2013 15:45:00 23:59:59 CLS Outpatient JUNIOR KWOK MD Via [facility] ANTICOAG THERAPY [id number] 06/20/2013 12:00:00 23:59:59 CLS Outpatient JUNIOR ORNELAS MD Via [facility] ANTIGOAGULANT THERAPY [id number] 06/06/2013 14:15:00 23:59:59 CLS Outpatient JUNIOR ORNELAS MD Via [facility] ANTICOAG THERAPY [id number] 12/01/2019 11:15:00 P EN PreadMARCUS Posey MD Via [facility] RAD CANCER OF MOUTH [id number] 10/13/2019 14:34:00 Document Registration [id number] 01/04/2015 08:31:00 Document Registration [id number] 11/23/2017 05:05:00 Document Registration [id number] 11/22/2016 19:06:00 Document Registration [id number] 02/17/2017 17:08:00 Document Registration [id number] 02/18/2017 18:09:00 Document Registration [id number] 04/02/2016 18:06:00 Document Registration
[2019-11-11 03:38] LABS: ALANINE AMINOTRANSFERASE 13 U/L (0-55); ALBUMIN 3.6 GM/DL (3.2-4.5); ALKALINE PHOSPHATASE 78 U/L (40-136); BILIRUBIN,TOTAL 0.2 MG/DL (0.1-1.0); BUN/CREATININE RATIO 30; CALCIUM 9.7 MG/DL (8.5-10.1); CARBON DIOXIDE 25 MMOL/L (21-32); CHLORIDE 102 MMOL/L (98-107); CREATININE SERUM 0.66 MG/DL (0.60-1.30); GFR ESTIMATED > 60; GLUCOSE 102 MG/DL (70-105); POTASSIUM 4.3 MMOL/L (3.6-5.0); SODIUM 139 MMOL/L (135-145); TOTAL PROTEIN 7.7 GM/DL (6.4-8.2)
[2019-11-11] MEDS ORDERED: OXYMETAZOLINE (AFRIN) 0.05% NA 30 ML BTL SCH (09:00)
== END 2019-11-11 03:45 | disposition home or self-care (01) ==
LOC: EDUNIT# 02:47 → ER 02:50
DX: R04.0 Epistaxis (principal); J43.9 Emphysema, unspecified; E78.00 Pure hypercholesterolemia, unspecified; F41.9 Anxiety disorder, unspecified; F32.9 Major depressive disorder, single episode, unspecified; Z86.711 Personal history of pulmonary embolism; Z85.818 Personal history of malignant neoplasm of other sites of lip, oral cavity, and pharynx; Z86.73 Personal history of transient ischemic attack (TIA), and cerebral infarction without residual deficits; Z88.1 Allergy status to other antibiotic agents; Z79.01 Long term (current) use of anticoagulants; Z79.82 Long term (current) use of aspirin; Z87.891 Personal history of nicotine dependence
CPT/HCPCS: 36415; 80053; 85025

== ENCOUNTER 2019-12-01 11:32 | Outpatient (RCR) | payer MEDICARE, MEDICAID ==
[~2019-12-01 11:32] MED LIST changes: -AMOX-358 GT; -ETAN50PE SQ; -FLUC100T6 PEG; -HOLD METFORMIN - RECEIVED CONTRAST 20 ML VIAL IV SCH; -IOHEXOL 350 MG/ML 100 ML (OMNIPAQUE 350) VIAL IV ONE; -NS 100 ML (IVPB) BAG IV ONE
[2019-12-01 11:42] LABS: BASOPHILS # (AUTO) 0.1 10^3/uL (0.0-0.1); BASOPHILS % (AUTO) 1 % (0-10); EOSINOPHILS # (AUTO) 0.3 10^3/uL (0.0-0.3); EOSINOPHILS % (AUTO) 4 % (0-10); HEMATOCRIT 35 % (35-52); HEMOGLOBIN 11.1 G/DL (11.5-16.0); LYMPHOCYTES # (AUTO) 2.5 X 10^3 (1.0-4.0); LYMPHOCYTES % (AUTO) 30 % (12-44); MEAN CORPUSCULAR HEMOGLOBIN 32 PG (25-34); MEAN CORPUSCULAR HGB CONC 32 G/DL (32-36); MEAN CORPUSCULAR VOLUME 101 FL (80-99); MEAN PLATELET VOLUME 9.3 FL (7.4-10.4); MONOCYTES % (AUTO) 12 % (0-12); NEUTROPHILS # (AUTO) 4.5 X 10^3 (1.8-7.8); NEUTROPHILS % (AUTO) 54 % (42-75); PLATELET COUNT 330 10^3/uL (130-400); RED CELL DISTRIBUTION WIDTH 14.1 % (10.0-14.5); WHITE BLOOD COUNT 8.3 10^3/uL (4.3-11.0)
[2019-12-01 12:00] LABS: ALANINE AMINOTRANSFERASE 23 U/L (0-55); ALBUMIN 3.7 GM/DL (3.2-4.5); ALKALINE PHOSPHATASE 100 U/L (40-136); BILIRUBIN,TOTAL 0.5 MG/DL (0.1-1.0); BUN/CREATININE RATIO 18; CALCIUM 9.7 MG/DL (8.5-10.1); CARBON DIOXIDE 28 MMOL/L (21-32); CHLORIDE 102 MMOL/L (98-107); CREATININE SERUM 0.71 MG/DL (0.60-1.30); GFR ESTIMATED > 60; GLUCOSE 81 MG/DL (70-105); POTASSIUM 4.3 MMOL/L (3.6-5.0); SODIUM 139 MMOL/L (135-145); TOTAL PROTEIN 7.5 GM/DL (6.4-8.2)
[2019-12-02] MEDS ORDERED: APIX5TAB PO (15:29)
[2019-12-02] MEDS ORDERED: DICL100G18 TP (15:29)
[2019-12-02] MEDS ORDERED: ETAN50PE SQ (16:01)
[2019-12-02] MEDS ORDERED: FLUC100T6 PEG (16:01)
[2019-12-05] MEDS ORDERED: AMOX-358 GT (15:31)
== END 2020-03-01 10:45 | disposition home or self-care (01) ==
LOC: ONC 11:32
PROVIDERS: ATTEND Internal Medicine Hematology & Oncology
DX: C04.1 Malignant neoplasm of lateral floor of mouth (principal); C14.8 Malignant neoplasm of overlapping sites of lip, oral cavity and pharynx; K59.00 Constipation, unspecified; T85.848A Pain due to other internal prosthetic devices, implants and grafts, initial encounter; M19.90 Unspecified osteoarthritis, unspecified site; F41.9 Anxiety disorder, unspecified; F32.9 Major depressive disorder, single episode, unspecified; I47.1 Supraventricular tachycardia; I80.209 Phlebitis and thrombophlebitis of unspecified deep vessels of unspecified lower extremity; J44.9 Chronic obstructive pulmonary disease, unspecified; Z96.659 Presence of unspecified artificial knee joint; Z98.890 Other specified postprocedural states; Z89.432 Acquired absence of left foot; Z95.5 Presence of coronary angioplasty implant and graft; Z95.828 Presence of other vascular implants and grafts; Z80.9 Family history of malignant neoplasm, unspecified; Z93.1 Gastrostomy status
CPT/HCPCS: 36591; 80053; 85025

== ENCOUNTER → 2019-12-01 | Outpatient (CLI) | payer MEDICARE, MEDICAID ==
[~2019-12-01] MED LIST changes: +AMOX-358 GT; +ETAN50PE SQ; +FLUC100T6 PEG; +HOLD METFORMIN - RECEIVED CONTRAST 20 ML VIAL IV SCH; +IOHEXOL 350 MG/ML 100 ML (OMNIPAQUE 350) VIAL IV ONE; +NS 100 ML (IVPB) BAG IV ONE
--- NOTE | 2019-12-01 12:00 | Diagnostic Imaging Report ---
PROCEDURE: CT chest with contrast only. TECHNIQUE: Multiple contiguous axial images were obtained through the chest after administration of intravenous contrast. Auto Exposure Controls were utilized during the CT exam to meet ALARA standards for radiation dose reduction. INDICATION: Mouth cancer. Correlation is made with prior CT chest from 09/05/2019. A right chest wall port has the tip within the SVC. No axillary lymphadenopathy is detected. No mediastinal or hilar lymphadenopathy is detected. No pericardial or pleural fluid is identified. Parenchymal evaluation does show some minimal residual linear opacities in the right upper lobe. There has been continued improved aeration particularly in the region of the right middle lobe since prior study. A linear opacity in the superior segment left lower lobe is stable. Linear scarring or atelectasis left lower lobe more inferiorly is seen, stable. No discrete mass is detected. Upper abdomen is unremarkable. IMPRESSION: 1. No evidence of thoracic lymphadenopathy or metastatic disease. There has been continued improved aeration of both lungs when compared with prior CT from 09/05/2019. There are residual areas of linear atelectasis or scarring in bilateral lungs. Dictated by: Dictated on workstation # [id number]
== END ==
LOC: RAD 10:55
PROVIDERS: ATTEND Internal Medicine Hematology & Oncology
DX: C04.1 Malignant neoplasm of lateral floor of mouth (principal)
CPT/HCPCS: 71260

== ENCOUNTER → 2020-01-30 | Outpatient (CLI) | payer MEDICARE, MEDICAID ==
[~2020-01-30] MED LIST changes: +AMOX-358 GT; +ETAN50PE SQ; +FLUC100T6 PEG
--- NOTE | 2020-01-30 13:40 | Diagnostic Imaging Report ---
INDICATION: Left shoulder pain, tobacco abuse. Time of exam 1:23 PM Comparison is made with prior chest from 12/03/2019. Right chest wall port has tip overlying the SVC. Cardiac monitoring device overlies the left base. There appears to be some developing opacity in the right suprahilar region, perhaps some infiltrate or atelectasis. Left lung is fairly clear. There is no significant effusion. No pneumothorax is identified. IMPRESSION: Developing infiltrate or perhaps atelectasis right suprahilar region. Continued follow-up after course of therapy to confirm clearing is recommended. Dictated by: Dictated on workstation # [id number]
== END ==
LOC: RAD 13:03
PROVIDERS: ATTEND Nurse Practitioner Family
DX: J18.9 Pneumonia, unspecified organism (principal); J44.9 Chronic obstructive pulmonary disease, unspecified; M25.512 Pain in left shoulder; Z72.0 Tobacco use; Z95.828 Presence of other vascular implants and grafts
CPT/HCPCS: 71046

== ENCOUNTER → 2020-02-14 | Outpatient (CLI) | payer MEDICARE, MEDICAID ==
[~2020-02-14] MED LIST changes: +CATHETER FLUSH 10 ML SYR IV PRN; +HOLD METFORMIN - RECEIVED CONTRAST 20 ML VIAL IV SCH; +IOHEXOL 350 MG/ML 100 ML (OMNIPAQUE 350) VIAL IV ONE; +NS 100 ML (IVPB) BAG IV ONE
[2020-02-14 10:46] LABS: BUN/CREATININE RATIO 13; CREATININE SERUM 0.75 MG/DL (0.60-1.30); GFR ESTIMATED > 60
--- NOTE | 2020-02-14 12:10 | Diagnostic Imaging Report ---
CT CHEST W TECHNIQUE: Multiple contiguous axial images were obtained through the chest with the use of intravenous contrast. All CT scans use one or more of the following dose optimizing techniques: automated exposure control, MA and/or KvP adjustment based on a patient size and exam type, or iterative reconstruction. INDICATION: Pneumonia, mouth cancer. COMPARISON: CT chest of 12/01/2019 FINDINGS: Lungs and airway: No endoluminal nodule within the trachea. Linear atelectasis/scar within the left lower lobe and medial aspect of the right upper lobe. Mild centrilobular emphysema. There are some patchy ill-defined nodules in the periphery of the right upper lobe which are unchanged since prior examination likely due to sequelae of prior infection. No consolidations are present that would suggest active pneumonia. No pulmonary nodule to suggest metastatic disease. Pleura: No pleural effusion or pneumothorax. Heart and mediastinum: Stable right subclavian Port-A-Cath. Thyroid is normal. No supraclavicular or axillary lymphadenopathy. No mediastinal, hilar or juxtaphrenic lymphadenopathy. Heart is normal in size without pericardial effusion. Extensive atherosclerotic plaquing throughout the aorta is unchanged. Esophagus is unremarkable. Upper abdomen: Cholelithiasis is again noted. Hypoattenuation liver similar may represent hepatic steatosis. Musculoskeletal: No worrisome focal osseous lesions. IMPRESSION: 1. No features of active pneumonia. 2. No pulmonary nodules or lymphadenopathy to indicate intrathoracic metastases. Dictated by: Dictated on workstation # [id number]
== END ==
LOC: RAD 10:14
PROVIDERS: ATTEND Nurse Practitioner Family
DX: J18.9 Pneumonia, unspecified organism (principal); J30.9 Allergic rhinitis, unspecified; J44.9 Chronic obstructive pulmonary disease, unspecified; C06.9 Malignant neoplasm of mouth, unspecified; Z95.828 Presence of other vascular implants and grafts
CPT/HCPCS: 36415; 71260; 82565; 84520

== ENCOUNTER 2020-03-01 10:49 | Outpatient (RCR) | payer MEDICARE, MEDICAID ==
[~2020-03-01 10:49] MED LIST changes: +ASPI-1238 PO; -ASPI-983 PO
== END 2020-04-06 08:40 | disposition home or self-care (01) ==
LOC: ONC 10:49
PROVIDERS: ATTEND Internal Medicine Hematology & Oncology
DX: Z51.11 Encounter for antineoplastic chemotherapy (principal); C04.1 Malignant neoplasm of lateral floor of mouth; C14.8 Malignant neoplasm of overlapping sites of lip, oral cavity and pharynx; K59.00 Constipation, unspecified; T85.848A Pain due to other internal prosthetic devices, implants and grafts, initial encounter; M19.90 Unspecified osteoarthritis, unspecified site; F41.9 Anxiety disorder, unspecified; F32.9 Major depressive disorder, single episode, unspecified; I47.1 Supraventricular tachycardia; I80.209 Phlebitis and thrombophlebitis of unspecified deep vessels of unspecified lower extremity; J44.9 Chronic obstructive pulmonary disease, unspecified; Z96.659 Presence of unspecified artificial knee joint; Z98.890 Other specified postprocedural states; Z89.432 Acquired absence of left foot; Z95.5 Presence of coronary angioplasty implant and graft; Z95.828 Presence of other vascular implants and grafts; Z80.9 Family history of malignant neoplasm, unspecified; Z93.1 Gastrostomy status

== ENCOUNTER → 2020-03-01 | Outpatient (CLI) | payer MEDICARE, MEDICAID ==
[~2020-03-01] MED LIST changes: -CATHETER FLUSH 10 ML SYR IV PRN; -HOLD METFORMIN - RECEIVED CONTRAST 20 ML VIAL IV SCH; -IOHEXOL 350 MG/ML 100 ML (OMNIPAQUE 350) VIAL IV ONE; -NS 100 ML (IVPB) BAG IV ONE
[2020-03-01 11:12] LABS: BASOPHILS # (AUTO) 0.1 10^3/uL (0.0-0.1); BASOPHILS % (AUTO) 1 % (0-10); EOSINOPHILS # (AUTO) 0.4 10^3/uL (0.0-0.3); EOSINOPHILS % (AUTO) 4 % (0-10); HEMATOCRIT 38 % (35-52); HEMOGLOBIN 12.3 G/DL (11.5-16.0); LYMPHOCYTES # (AUTO) 2.1 X 10^3 (1.0-4.0); LYMPHOCYTES % (AUTO) 23 % (12-44); MEAN CORPUSCULAR HEMOGLOBIN 31 PG (25-34); MEAN CORPUSCULAR HGB CONC 33 G/DL (32-36); MEAN CORPUSCULAR VOLUME 95 FL (80-99); MEAN PLATELET VOLUME 9.1 FL (7.4-10.4); MONOCYTES # (AUTO) 1.1 X 10^3 (0.0-1.0); MONOCYTES % (AUTO) 12 % (0-12); NEUTROPHILS # (AUTO) 5.5 X 10^3 (1.8-7.8); NEUTROPHILS % (AUTO) 61 % (42-75); PLATELET COUNT 313 10^3/uL (130-400); RED CELL DISTRIBUTION WIDTH 14.4 % (10.0-14.5); WHITE BLOOD COUNT 9.1 10^3/uL (4.3-11.0)
[2020-03-01 11:42] LABS: ALANINE AMINOTRANSFERASE 50 U/L (0-55); ALBUMIN 3.7 GM/DL (3.2-4.5); ALKALINE PHOSPHATASE 183 U/L (40-136); BILIRUBIN,TOTAL 0.5 MG/DL (0.1-1.0); BUN/CREATININE RATIO 12; CALCIUM 9.6 MG/DL (8.5-10.1); CARBON DIOXIDE 28 MMOL/L (21-32); CHLORIDE 102 MMOL/L (98-107); CREATININE SERUM 0.75 MG/DL (0.60-1.30); GFR ESTIMATED > 60; GLUCOSE 95 MG/DL (70-105); POTASSIUM 4.2 MMOL/L (3.6-5.0); SODIUM 137 MMOL/L (135-145); TOTAL PROTEIN 7.3 GM/DL (6.4-8.2)
[2020-03-01 12:21] LABS: ERYTHROCYTE SEDIMENTATION RATE 45 MM/HR (0-30)
== END ==
LOC: LAB 10:56
PROVIDERS: ATTEND Internal Medicine Rheumatology
DX: Z79.899 Other long term (current) drug therapy (principal)
CPT/HCPCS: 36415; 80053; 85025; 85652; 86141

== ENCOUNTER 2020-03-14 05:39 | Outpatient (CLI) | payer MEDICARE, MEDICAID ==
[~2020-03-14] VITALS: Ht 160 cm; Wt 71.4 kg
== END 2020-03-14 12:59 ==
LOC: PREOP 05:39
PROVIDERS: ATTEND Specialist
DX: Z01.818 Encounter for other preprocedural examination (principal)

== ENCOUNTER 2020-03-16 09:19 | Day surgery (SDC) | payer MEDICARE, MEDICAID ==
[~2020-03-16] VITALS: Ht 160 cm; Wt 71.8 kg
[2020-03-16] MEDS ORDERED: LIDOCAINE PF 1% 2 ML VIAL IR PRN (09:30)
[2020-03-16] MEDS ORDERED: POVIDONE (BETADINE) OPHTH SOLN 5% 30 ML OP ONE (09:30)
[2020-03-16] MEDS ORDERED: TIMOLOL MALEATE 0.5% 5 ML (TIMOPTIC) BTL OU PRN (09:30)
[2020-03-16] MEDS ORDERED: MOXIFLOXACIN OPHTH SOLN 5 MG/ML 0.3 ML SYRINGE OP ONE (09:30)
[2020-03-16] MEDS: TETRACAINE 0.5% OPHTH SOLN 4 ML BTL (SINGLE DOSE ONLY) OU PRN ×4 (09:39→10:07)
[2020-03-16 09:40] VITALS: BP 133/65
[2020-03-16] MEDS: PHENYLEPHRINE 10% OPHTH (NEO-SYN) 5 ML BTL OU SCH ×3 (09:53→10:07)
[2020-03-16] MEDS: CYCLOPENTOLATE 1% (CYCLOGYL) 2 ML DROPS OP SCH ×3 (09:53→10:07)
[2020-03-16] MEDS ORDERED: MIDAZOLAM 2 MG/2 ML (VERSED) VIAL ONE (10:21)
--- NOTE | 2020-03-16 10:23 | Ophthalmologist Pre-Op Note ---
Pre-Operative Progress Note H&P Reviewed The H&P was reviewed, patient examined and no changes noted. Date H&P Reviewed: Mar 16, 2020 Time H&P Reviewed: 10:23 Pre-Op Dx Cataract, Right Eye JOSH JOHNSON MD Mar 16, 2020 10:23
--- NOTE | 2020-03-16 10:47 | Anesthesia-General Post-Op ---
MAC Patient Condition Mental Status/LOC: Same as Preop Cardiovascular: Satisfactory Nausea/Vomiting: Absent Respiratory: Satisfactory Pain: Controlled Complications: Absent Post Op Complications Complications None Follow Up Care/Instructions Patient Instructions None needed. Anesthesiology Discharge Order Discharge Order Patient is doing well, no complaints, stable vital signs, no apparent adverse anesthesia problems. No complications reported per nursing. TIFFANIE BASSETT CRNA Mar 16, 2020 10:47
--- NOTE | 2020-03-16 10:48 | Ophthalmology Operative Report ---
Cataract removal/placement IOL PREOPERATIVE DIAGNOSIS: Cataract Right Eye POSTOPERATIVE DIAGNOSIS: Cataract Right Eye PROCEDURE: Cataract removal and placement of posterior chamber implant, right eye SURGEON: Iban Johnson ANESTHESIA: Topical with sedation COMPLICATIONS: None ESTIMATED BLOOD LOSS: Minimal DESCRIPTION OF PROCEDURE: After proper informed consent was obtained, the patient, a 69 female, was taken to the Operating Room and the right eye was anesthetized with tetracaine. The right eye was then prepped and draped in the usual manner. A wire lid speculum was placed. A paracentesis was made at the left hand position. Preservative free lidocaine was injected into the anterior chamber followed by viscoelastic. A clear corneal incision was made in the temporal position. A capsulorrhexis was preformed and the central nuclear and cortical material were removed. The posterior capsule was polished and Rodrick 25.0 [id number] IOL was placed into the capsular bag. The residual viscoelastic was aspirated and balanced saline solution was injected into the anterior chamber. Moxifloxacin was injected into the anterior chamber. The wound was checked and found to be water tight. The patient tolerated the procedure well without complications. IBAN JOHNSON MD Mar 16, 2020 10:47
[2020-03-16] MEDS ORDERED: acetaZOLAMIDE ER 500 MG CAP (DIAMOX SEQUELS) PO ONE (11:00)
[2020-03-16 11:15] VITALS: BP 106/53
== END 2020-03-16 11:15 | disposition home or self-care (01) ==
LOC: SDC 09:19
PROVIDERS: ATTEND Specialist
DX: H25.11 Age-related nuclear cataract, right eye (principal); J44.9 Chronic obstructive pulmonary disease, unspecified; M06.9 Rheumatoid arthritis, unspecified; Z86.73 Personal history of transient ischemic attack (TIA), and cerebral infarction without residual deficits; F41.9 Anxiety disorder, unspecified; E78.5 Hyperlipidemia, unspecified; I73.9 Peripheral vascular disease, unspecified; E78.00 Pure hypercholesterolemia, unspecified; Z96.649 Presence of unspecified artificial hip joint; Z79.899 Other long term (current) drug therapy; Z87.891 Personal history of nicotine dependence; Z79.01 Long term (current) use of anticoagulants; Z85.89 Personal history of malignant neoplasm of other organs and systems; Z88.1 Allergy status to other antibiotic agents
CPT/HCPCS: 66984; V2632

== ENCOUNTER 2020-03-30 10:25 | Day surgery (SDC) | payer MEDICARE, MEDICAID ==
[~2020-03-30] VITALS: Ht 160 cm; Wt 71.4 kg
[2020-03-30] MEDS ORDERED: TIMOLOL MALEATE 0.5% 5 ML (TIMOPTIC) BTL OU PRN (10:30)
[2020-03-30] MEDS ORDERED: POVIDONE (BETADINE) OPHTH SOLN 5% 30 ML OP ONE (10:30)
[2020-03-30] MEDS ORDERED: LIDOCAINE PF 1% 2 ML VIAL IR PRN (10:30)
[2020-03-30 10:35] VITALS: BP 116/53
[2020-03-30] MEDS: TETRACAINE 0.5% OPHTH SOLN 4 ML BTL (SINGLE DOSE ONLY) OU PRN ×4 (10:39→10:57)
[2020-03-30] MEDS: PHENYLEPHRINE 10% OPHTH (NEO-SYN) 5 ML BTL OU SCH ×3 (10:45→10:57)
[2020-03-30] MEDS: CYCLOPENTOLATE 1% (CYCLOGYL) 2 ML DROPS OP SCH ×3 (10:46→10:57)
--- NOTE | 2020-03-30 11:20 | Ophthalmologist Pre-Op Note ---
Pre-Operative Progress Note H&P Reviewed The H&P was reviewed, patient examined and no changes noted. Date H&P Reviewed: Mar 30, 2020 Time H&P Reviewed: 11:20 Pre-Op Dx Cataract, Left Eye JOSH JOHNSON MD Mar 30, 2020 11:20
[2020-03-30] MEDS ORDERED: MIDAZOLAM 2 MG/2 ML (VERSED) VIAL ONE (11:21)
[2020-03-30] MEDS: MOXIFLOXACIN OPHTH SOLN 5 MG/ML 0.3 ML SYRINGE OP ONE ×2 (11:32→11:49)
--- NOTE | 2020-03-30 11:45 | Ophthalmology Operative Report ---
Cataract removal/placement IOL PREOPERATIVE DIAGNOSIS: Cataract Left Eye POSTOPERATIVE DIAGNOSIS: Cataract Left Eye PROCEDURE: Cataract removal and placement of posterior chamber implant, left eye SURGEON: Iban Johnson ANESTHESIA: Topical with sedation COMPLICATIONS: None ESTIMATED BLOOD LOSS: Minimal DESCRIPTION OF PROCEDURE: After proper informed consent was obtained, the patient, a 69 female, was taken to the Operating Room and the left eye was anesthetized with tetracaine. The left eye was then prepped and draped in the usual manner. A wire lid speculum was placed. A paracentesis was made at the left hand position. Preservative free lidocaine was injected into the anterior chamber followed by viscoelastic. A clear corneal incision was made in the temporal position. A capsulorrhexis was preformed and the central nuclear and cortical material were removed. The posterior capsule was polished and an Rodrick 23.0 [id number] was placed into the capsular bag. The residual viscoelastic was aspirated and balanced saline solution was injected into the anterior chamber. Moxifloxacin was injected into the anterior chamber. The wound was checked and found to be water tight. The patient tolerated the procedure well without complications. IBAN JOHNSON MD Mar 30, 2020 11:45
[2020-03-30 11:55] VITALS: BP 111/55
[2020-03-30] MEDS ORDERED: acetaZOLAMIDE ER 500 MG CAP (DIAMOX SEQUELS) PO ONE (12:00)
--- NOTE | 2020-03-30 13:09 | Anesthesia-General Post-Op ---
MAC Patient Condition Mental Status/LOC: Same as Preop Cardiovascular: Satisfactory Nausea/Vomiting: Absent Respiratory: Satisfactory Pain: Controlled Complications: Absent Post Op Complications Complications None Follow Up Care/Instructions Patient Instructions None needed. Anesthesiology Discharge Order Discharge Order Patient is doing well, no complaints, stable vital signs, no apparent adverse anesthesia problems. No complications reported per nursing. HAO FERNANDEZ CRNA Mar 30, 2020 13:09
== END 2020-03-30 11:55 | disposition home or self-care (01) ==
LOC: SDC 10:25
PROVIDERS: ATTEND Specialist
DX: H25.12 Age-related nuclear cataract, left eye (principal); J44.9 Chronic obstructive pulmonary disease, unspecified; F41.9 Anxiety disorder, unspecified; M06.9 Rheumatoid arthritis, unspecified; E78.00 Pure hypercholesterolemia, unspecified; Z79.51 Long term (current) use of inhaled steroids; Z79.01 Long term (current) use of anticoagulants; Z79.899 Other long term (current) drug therapy; Z88.1 Allergy status to other antibiotic agents; Z87.891 Personal history of nicotine dependence; Z86.73 Personal history of transient ischemic attack (TIA), and cerebral infarction without residual deficits; Z80.8 Family history of malignant neoplasm of other organs or systems
CPT/HCPCS: 66984; V2632

== ENCOUNTER → 2020-05-18 | Outpatient (CLI) | payer MEDICARE, MEDICAID ==
[~2020-05-18] MED LIST changes: +HOLD METFORMIN - RECEIVED CONTRAST 20 ML VIAL IV SCH; +IOHEXOL 350 MG/ML 100 ML (OMNIPAQUE 350) VIAL IV ONE; +NS 100 ML (IVPB) BAG IV ONE
--- NOTE | 2020-05-18 12:34 | Diagnostic Imaging Report ---
PROCEDURE: CT neck soft tissue with contrast. TECHNIQUE: Multiple contiguous axial images were obtained through the neck after the administration of contrast. Auto Exposure Controls were utilized during the CT exam to meet ALARA standards for radiation dose reduction. INDICATION: Squamous cell carcinoma, follow-up. COMPARISON: Comparison is made with prior CT neck from 09/05/2019. FINDINGS: The visualized intracranial structures are unremarkable. Posterior nasopharynx and oropharynx are unremarkable. Parapharyngeal fat planes are preserved. Epiglottis and larynx are unremarkable. Tiny low densities in the right lobe of the thyroid appears stable. There are multiple surgical clips involving soft tissues of the neck on the right and left. No residual or recurrent lymphadenopathy or mass is identified. Salivary glands are unremarkable. Visualized paranasal sinuses are clear. IMPRESSION: Postsurgical changes to the neck. No mass or lymphadenopathy is identified. Dictated by: Dictated on workstation # [id number]
== END ==
LOC: RAD 11:15
PROVIDERS: ATTEND Internal Medicine Hematology & Oncology
DX: C44.42 Squamous cell carcinoma of skin of scalp and neck (principal)
CPT/HCPCS: 70491

== ENCOUNTER 2020-06-01 12:56 | Outpatient (RCR) | payer MEDICARE, MEDICAID ==
[2020-05-18 11:49] LABS: BASOPHILS # (AUTO) 0.1 10^3/uL (0.0-0.1); BASOPHILS % (AUTO) 1 % (0-10); EOSINOPHILS # (AUTO) 0.3 10^3/uL (0.0-0.3); EOSINOPHILS % (AUTO) 3 % (0-10); HEMATOCRIT 37 % (35-52); HEMOGLOBIN 12.2 g/dL (11.5-16.0); LYMPHOCYTES # (AUTO) 2.1 10^3/uL (1.0-4.0); LYMPHOCYTES % (AUTO) 29 % (12-44); MEAN CORPUSCULAR HEMOGLOBIN 32 pg (25-34); MEAN CORPUSCULAR HGB CONC 33 g/dL (32-36); MEAN CORPUSCULAR VOLUME 97 fL (80-99); MEAN PLATELET VOLUME 8.9 fL (9.0-12.2); MONOCYTES # (AUTO) 0.8 10^3/uL (0.0-1.0); MONOCYTES % (AUTO) 11 % (0-12); NEUTROPHILS # (AUTO) 4.1 10^3/uL (1.8-7.8); NEUTROPHILS % (AUTO) 55 % (42-75); PLATELET COUNT 250 10^3/uL (130-400); WHITE BLOOD COUNT 7.4 10^3/uL (4.3-11.0)
[2020-05-18 12:10] LABS: ALANINE AMINOTRANSFERASE 13 U/L (0-55); ALBUMIN 3.8 GM/DL (3.2-4.5); ALKALINE PHOSPHATASE 81 U/L (40-136); BILIRUBIN,TOTAL 0.6 MG/DL (0.1-1.0); BUN/CREATININE RATIO 16; CALCIUM 9.2 MG/DL (8.5-10.1); CARBON DIOXIDE 25 MMOL/L (21-32); CHLORIDE 101 MMOL/L (98-107); CREATININE SERUM 0.77 MG/DL (0.60-1.30); GFR ESTIMATED > 60; GLUCOSE 86 MG/DL (70-105); POTASSIUM 4.3 MMOL/L (3.6-5.0); SODIUM 137 MMOL/L (135-145); TOTAL PROTEIN 7.6 GM/DL (6.4-8.2)
[~2020-06-01 12:56] MED LIST changes: -HOLD METFORMIN - RECEIVED CONTRAST 20 ML VIAL IV SCH; -IOHEXOL 350 MG/ML 100 ML (OMNIPAQUE 350) VIAL IV ONE; -MONT10TA26 PO; +MONT10TA97 PO; -NS 100 ML (IVPB) BAG IV ONE
== END 2020-08-10 14:26 | disposition home or self-care (01) ==
LOC: ONC 12:56
PROVIDERS: ATTEND Internal Medicine Hematology & Oncology
DX: C04.1 Malignant neoplasm of lateral floor of mouth (principal); C14.8 Malignant neoplasm of overlapping sites of lip, oral cavity and pharynx; K59.00 Constipation, unspecified; M19.90 Unspecified osteoarthritis, unspecified site; F41.9 Anxiety disorder, unspecified; F32.9 Major depressive disorder, single episode, unspecified; J44.9 Chronic obstructive pulmonary disease, unspecified; I47.1 Supraventricular tachycardia; I80.209 Phlebitis and thrombophlebitis of unspecified deep vessels of unspecified lower extremity; Z96.659 Presence of unspecified artificial knee joint; Z89.432 Acquired absence of left foot; Z95.5 Presence of coronary angioplasty implant and graft; Z95.828 Presence of other vascular implants and grafts
CPT/HCPCS: 36591; 80053; 85025

== ENCOUNTER 2020-06-23 22:08 | Emergency (ER) | payer MEDICARE, MEDICAID ==
[2020-06-23] MEDS: NS IV 1000 ML 1,000 ML IV SCH ×2 (22:45→23:42)
[2020-06-23 23:03] LABS: BASOPHILS % (AUTO) 0 % (0-10); EOSINOPHILS % (AUTO) 0 % (0-10); HEMATOCRIT 36 % (35-52); HEMOGLOBIN 11.9 g/dL (11.5-16.0); LYMPHOCYTES # (AUTO) 0.5 10^3/uL (1.0-4.0); LYMPHOCYTES % (AUTO) 3 % (12-44); MEAN CORPUSCULAR HEMOGLOBIN 32 pg (25-34); MEAN CORPUSCULAR HGB CONC 33 g/dL (32-36); MEAN CORPUSCULAR VOLUME 97 fL (80-99); MEAN PLATELET VOLUME 9.3 fL (9.0-12.2); MONOCYTES # (AUTO) 0.7 10^3/uL (0.0-1.0); MONOCYTES % (AUTO) 4 % (0-12); NEUTROPHILS # (AUTO) 14.2 10^3/uL (1.8-7.8); NEUTROPHILS % (AUTO) 92 % (42-75); PLATELET COUNT 279 10^3/uL (130-400); WHITE BLOOD COUNT 15.5 10^3/uL (4.3-11.0)
[2020-06-23 23:07] LABS: ALBUMIN 3.7 GM/DL (3.2-4.5); POTASSIUM 3.7 MMOL/L (3.6-5.0)
[2020-06-23 23:09] LABS: CALCIUM 9.2 MG/DL (8.5-10.1)
[2020-06-23 23:10] LABS: TOTAL PROTEIN 7.1 GM/DL (6.4-8.2)
[2020-06-23 23:12] LABS: BILIRUBIN,TOTAL 1.9 MG/DL (0.1-1.0)
[2020-06-23 23:13] LABS: CREATININE SERUM 1.11 MG/DL (0.60-1.30)
[2020-06-23 23:23] LABS: BAND NEUTROPHILS 21 %; BASOPHILS % (MANUAL) 0 %; EOSINOPHILS % (MANUAL) 0 %; LYMPHOCYTES % (MANUAL) 2 %; MONOCYTES % (MANUAL) 2 %; NEUTROPHILS % (MANUAL) 74 %; RBC MORPH NORMAL; REACTIVE LYMPHOCYTES 1 %
[2020-06-23 23:53] LABS: BILIRUBIN,URINE NEGATIVE (NEGATIVE); CLARITY,URINE CLEAR; COLOR,URINE YELLOW; GLUCOSE, URINE (UA) NEGATIVE (NEGATIVE); KETONES,URINE NEGATIVE (NEGATIVE); LEUKOCYTE ESTERASE ,URINE NEGATIVE (NEGATIVE); NITRITE,URINE NEGATIVE (NEGATIVE); PROTEIN,URINE NEGATIVE (NEGATIVE)
--- NOTE | 2020-06-24 00:01 | ED General ---
General Chief Complaint: General Problems/Pain Stated Complaint: LETHARGIC Nursing Triage Note: TO ED VIA [facility] WITH C/O ABD PAIN, VOMITING SINCE THIS MORNING. HX LUNG CA WITH CHRONIC O2 AT NIGHT. Nursing Sepsis Screen: Possible Severe Sepsis Risk Source of Information: Patient Exam Limitations: No Limitations History of Present Illness Date Seen by Provider: Jun 23, 2020 Time Seen by Provider: 22:20 Initial Comments Lona is a 70-year-old female who presents to the emergency department today with a chief complaint of abdominal pain. History is difficult from the patient secondary to her history of mouth cancer. Per report from her daughter she has had some abdominal pain onset today with nausea and vomiting at least a couple of times. Patient presents to the emergency room febrile with a temperature of 102. She states her belly does not hurt as much as it did before but she is still quite nauseated. Patient denies any difficulty with urination she has a mild cough. A slight runny nose. Patient states she is also had diarrhea today that is nonblack nonbloody. Her daughter states that her last bout with mouth cancer was approximately a year ago. She is no longer receiving treatment and is "clear" from her cancer. She does have a PEG tube in place but as recently as 3 days ago started taking medications by mouth. Patient is eager to have her PEG tube removed. Daughter denies that the patient has had any sick contacts no coronavirus contacts. All other review of systems reviewed and negative except as stated above. Timing/Duration: 12-24 Hours Severity: Moderate Associated Systoms: Loss of Appetite, Nausea/Vomiting Allergies and Home Medications Allergies Coded Allergies: ceftriaxone (Verified Allergy, Severe, DIFFICULTY BREATING, 07/05/19) levofloxacin (Verified Allergy, Severe, C-DIFF, 07/05/19) Home Medications Albuterol Sulfate 2.5 Mg/3 Ml Vial.neb, 2.5 MG NEB Q6H PRN for SHORTNESS OF BREATH, (Reported) Apixaban 5 Mg Tablet, 5 MG PO BID, (Reported) Budesonide/Formoterol Fumarate 10.2 Gm Hfa.aer.ad, 2 PUFF INH BID, (Reported) Cyclobenzaprine HCl 5 Mg Tablet, 5 MG PEG DAILY PRN for MUSCLE SPASMS, (Reported) Diclofenac Sodium 100 Gm Gel..gram., 4 GM TP BID PRN for PAIN-BREAKTHROUGH, (Reported) APPLY TO LEFT KNEE Etanercept 50 Mg/1 Ml Pen.injctr, 50 MG SQ WED, (Reported) Gabapentin 250 Mg/5 Ml Solution, 6 ML PEG TID, (Reported) Hydrocodone/Acetaminophen 118 Ml Solution, 15 ML PEG TID, (Reported) Montelukast Sodium 5 Mg Tab.chew, 10 MG PEG HS, (Reported) TAKES 2 (5MG) TABLETS Ondansetron 8 Mg Tab.rapdis, 8 MG PEG Q8H PRN for NAUSEA/VOMITING-1ST LINE, (Reported) Sertraline HCl 20 Mg/1 Ml Oral.conc, 2.5 ML PEG DAILY, (Reported) MIX WITH 4 OZ. ORANGE JUCIE, LEMONADE, AMBER ROBI, OR LEMON PAIUTE OF [place] SODA Tiotropium [place] 4 Gm Mist.inhal, 1 PUFF INH BID, (Reported) Zolpidem Tartrate 5 Mg Tablet, 5 MG PEG HS, (Reported) Patient Home Medication List Home Medication List Reviewed: Yes Review of Systems Review of Systems Constitutional: see HPI EENTM: no symptoms reported Respiratory: cough Cardiovascular: no symptoms reported Gastrointestinal: abdominal pain, loss of appetite, nausea, vomiting Genitourinary: no symptoms reported Musculoskeletal: no symptoms reported Skin: no symptoms reported All Other Systems Reviewed Negative Unless Noted: Yes Past Xbzwpib-Keeucs-Hnjdjq Hx Patient Social History Alcohol Use: Denies Use Recreational Drug Use: No Type Used: Cigarettes Former Smoker, Quit: Jul 13, 2014 2nd Hand Smoke Exposure: No Recent Foreign Travel: No Contact w/Someone Who Travel: No Recent Infectious Disease Expo: No Recent Hopitalizations: Yes (epitaxis) Physical Abuse: No Sexual Abuse: No Mistreated: No Fear: No Immunizations Up To Date Tetanus Booster (TDap): Unknown PED Vaccines UTD: Yes Date of Pneumonia Vaccine: Jun 15, 2019 Date of Influenza Vaccine: Apr 12, 2018 Seasonal Allergies Seasonal Allergies: Yes Past Medical History Surgeries: Yes (heart ablation, mouth cancer, feeding tube,peripheral stents;LOOP RECORDER;) Abdominal, Amputation, Cardiac, Joint Replacement, Orthopedic, Vascular Surgery Respiratory: Yes (O2 2.5L NC AT NIGHT AND PRN;P.E. 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 Sexually Transmitted Disease: No HIV/AIDS: No Genitourinary: No Gastrointestinal: Yes (FEEDING TUBE;PANCREATITIS 2003) Gastroesophageal Reflux, Pancreatitis, C-Diff, Hiatal Hernia, Ulcer Musculoskeletal: Yes (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KNEE RE PLACEMENTS ) Amputee, Arthritis, Rheumatoid Arthritis Endocrine: Yes Diabetes, Non-Insulin dep HEENT: Yes (GLASSES; ORAL CANCER-S/P SURGERY/CHEMO/RADIATION) Dysphagia, Tinnitis Loss of Vision: Bilateral Hearing Impairment: Denies Cancer: Yes (SKIN CANCER OF FACE; ORAL CANCER) Skin, Oral Did You Recieve Any Treatments: Yes What Type of Treatment Did You: Chemotherapy, Radiation, Surgical Intervention Psychosocial: Yes Sleep Difficulties, Anxiety, Depression Integumentary: No Blood Disorders: No Adverse Reaction/Blood Tranf: No (N/A) Family Medical History Cancer 09 SISTER Family history: Arthritis 09 BROTHER 09 SISTER Family history: Cardiovascular disease 09 SISTER Family history: Thyroid disorder 09 SISTER Malignant neoplasm of lung 09 SISTER Heart Disease PSH: -EGD'S/PEG TUBES -LAST ONE 06/2019 -LEFT FOREFOOT AMPUTATION DUE TO GANGRENE 2013 -CARDIAC CATHS AND PERIPHERAL CATHS--ANGIOPLASTY AND STENTS LEFT SFA AND COMMON ILIAC 05/2013; AND REPEAT INTERVENTION AND STENTING 02/2014; BILATERAL ILIAC STENTS; ATHERECTOMY AND ANGIOPLASTY OF R SFA, POPLITEAL AND ANTERIOR TIBITAL ARTERIES 03/2014 -PORT RIGHT CHEST -PERIPHERAL ARTERY STENTS AND ANGIOPLASTY -CARDIAC ABLATION 01/2018 FOR AVNRT/AFIB-FLUTTER -RIGHT KNEE REPLACEMENT-12/2016 -RIGHT TOTAL HIP REPLACEMENT 2003 -DEBRIDEMENT OF LEFT SHOULDER DUE TO SPIDER BITE 2014 -LOOP RECORDER 04/06/2018 Physical Exam Vital Signs Vital Signs - First Documented 06/23/20 22:10 Temp 39.0 Pulse 93 Resp 16 B/P (MAP) 96/79 (85) O2 Delivery Room Air Capillary Refill : Less Than 3 Seconds Height, Weight, BMI Height: 5'2.00" Weight: 180lbs. 0.0oz. 81.879894wf; 30.39 BMI Method:Actual General Appearance: No Apparent Distress, WD/WN Eyes: Bilateral Eye Normal Inspection, Bilateral Eye PERRL, Bilateral Eye EOMI HEENT: PERRL/EOMI Neck: Supple Respiratory: Lungs Clear, Normal Breath Sounds, No Accessory Muscle Use, No Respiratory Distress Cardiovascular: Regular Rate, Rhythm, Systolic Murmur Gastrointestinal: Normal Bowel Sounds, Non Tender, Soft, Other (PEG tube in place without surrounding erythema, nontender) Extremity: Normal Capillary Refill, Normal Inspection, Normal Range of Motion, Non Tender, No Pedal Edema Neurologic/Psychiatric: Alert, No Motor/Sensory Deficits, Normal 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, 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 Skin: Normal Color, Warm/Dry Focused Exam Sepsis Stage: Sepsis Possible Source: GI Tract/Intra-Abdominal Lactate Level 06/23/20 22:20: Lactic Acid Level 3.39*H Time of Focused Exam: 00:45 Respiratory: Lungs Clear, Normal Breath Sounds, No Accessory Muscle Use, No Respiratory Distress Cardiovascular: Regular Rate, Rhythm, Systolic Murmur Peripheral Pulses: 2+ Radial Pulses (R), 2+ Radial Pulses (L) Skin: normal color, warm/dry Lactic Acid Level Laboratory Tests Test 06/23/20 22:20 Lactic Acid Level 3.39 MMOL/L (0.50-2.00) *H Within 3hrs of presentation: Admin fluids, Admin 30ml/kg IBW due to BMI>30, Admin ABX, Blood cultures prior to ABX's, Lactate level Progress/Results/Core Measures Suspected Sepsis Recent Fever Within 48 Hours: Yes Infection Criteria Present: Suspected New Infection New/Unexplained Altered Menta: No Sepsis Screen: Possible Severe Sepsis Risk SIRS Temperature: Pulse: 93 Respiratory Rate: 16 Laboratory Tests 06/23/20 22:20: White Blood Count 15.5H Blood Pressure 96 /79 Mean: 85 06/23/20 22:20: Lactic Acid Level 3.39*H Laboratory Tests 06/23/20 22:20: Creatinine 1.11, Platelet Count 279, Total Bilirubin 1.9H Results/Orders Lab Results Laboratory Tests Test 06/23/20 22:20 06/23/20 22:45 06/23/20 23:47 Range/Units White Blood Count 15.5 H 4.3-11.0 10^3/uL Red Blood Count 3.70 L 3.80-5.11 10^6/uL Hemoglobin 11.9 11.5-16.0 g/dL Hematocrit 36 35-52 % Mean Corpuscular Volume 97 80-99 fL Mean Corpuscular Hemoglobin 32 25-34 pg Mean Corpuscular Hemoglobin Concent 33 32-36 g/dL Red Cell Distribution Width 13.3 10.0-14.5 % Platelet Count 279 130-400 10^3/uL Mean Platelet Volume 9.3 9.0-12.2 fL Immature Granulocyte % (Auto) 1 % Neutrophils (%) (Auto) 92 H 42-75 % Lymphocytes (%) (Auto) 3 L 12-44 % Monocytes (%) (Auto) 4 0-12 % Eosinophils (%) (Auto) 0 0-10 % Basophils (%) (Auto) 0 0-10 % Neutrophils # (Auto) 14.2 H 1.8-7.8 10^3/uL Lymphocytes # (Auto) 0.5 L 1.0-4.0 10^3/uL Monocytes # (Auto) 0.7 0.0-1.0 10^3/uL Eosinophils # (Auto) 0.0 0.0-0.3 10^3/uL Basophils # (Auto) 0.0 0.0-0.1 10^3/uL Immature Granulocyte # (Auto) 0.1 0.0-0.1 10^3/uL Neutrophils % (Manual) 74 % Lymphocytes % (Manual) 2 % Monocytes % (Manual) 2 % Eosinophils % (Manual) 0 % Basophils % (Manual) 0 % Band Neutrophils 21 % Reactive Lymphocytes 1 % Blood Morphology Comment NORMAL Sodium Level 135 135-145 MMOL/L Potassium Level 3.7 3.6-5.0 MMOL/L Chloride Level 100 98-107 MMOL/L Carbon Dioxide Level 21 21-32 MMOL/L Anion Gap 14 5-14 MMOL/L Blood Urea Nitrogen 20 H 7-18 MG/DL Creatinine 1.11 0.60-1.30 MG/DL Estimat Glomerular Filtration Rate 48 BUN/Creatinine Ratio 18 Glucose Level 150 H 70-105 MG/DL Lactic Acid Level 3.39 *H 0.50-2.00 MMOL/L Calcium Level 9.2 8.5-10.1 MG/DL Corrected Calcium 9.4 8.5-10.1 MG/DL Total Bilirubin 1.9 H 0.1-1.0 MG/DL Aspartate Amino Transf (AST/SGOT) 723 H 5-34 U/L Alanine Aminotransferase (ALT/SGPT) 468 H 0-55 U/L Alkaline Phosphatase 421 H 40-136 U/L Total Protein 7.1 6.4-8.2 GM/DL Albumin 3.7 3.2-4.5 GM/DL Lipase < 4 L 8-78 U/L Coronavirus 2019 ([facility]) Negative Negative Urine Color YELLOW Urine Clarity CLEAR Urine pH 6.0 5-9 Urine Specific [place] 1.010 L 1.016-1.022 Urine Protein NEGATIVE NEGATIVE Urine Glucose (UA) NEGATIVE NEGATIVE Urine Ketones NEGATIVE NEGATIVE Urine Nitrite NEGATIVE NEGATIVE Urine Bilirubin NEGATIVE NEGATIVE Urine Urobilinogen 0.2 < = 1.0 MG/DL Urine Leukocyte Esterase NEGATIVE NEGATIVE Urine RBC (Auto) NEGATIVE NEGATIVE Urine RBC NONE /HPF Urine WBC 2-5 /HPF Urine Squamous Epithelial Cells NONE /HPF Urine Crystals NONE /LPF Urine Bacteria NEGATIVE /HPF Urine Casts NONE /LPF Urine Mucus NEGATIVE /LPF Urine Culture Indicated NO Micro Results Microbiology 06/23/20 Influenza Types A,B Antigen (PRITI) - Final, Complete My Orders Orders - RENETTA FONSECA MD Ns Iv 1000 Ml (Sodium Chloride 0.9%) (06/23/20 22:45) Ed Iv/Invasive Line Start (06/23/20 22:36) Cbc With Automated Diff (06/23/20 22:36) Comprehensive Metabolic Panel (06/23/20 22:36) Ua Culture If Indicated (06/23/20 22:36) Chest 1 View, Ap/Pa Only (06/23/20 22:36) Blood Culture (06/23/20 22:36) Lactic Acid Analyzer (06/23/20 22:36) Covid 19 Inhouse Test (06/23/20 22:36) Blood Culture (06/23/20 22:36) Influenza A And B Antigens (06/23/20 22:43) Manual Differential (06/23/20 22:20) Ct Abdomen/Pelvis W (06/24/20 00:00) Lipase (06/24/20 00:13) Piperacillin/Tazobactam (Bulk) (Zosyn In (06/24/20 00:15) Piperacillin Sodium/Tazobactam (Zosyn Vi (06/24/20 00:23) Ns (Ivpb) (Sodium Chloride 0.9% Ivpb Bag (06/24/20 00:26) Ns Iv 500 Ml (Sodium Chloride 0.9%) (06/24/20 00:24) Iohexol Injection (Omnipaque 350 Mg/Ml 1 (06/24/20 00:45) Received Contrast (Hold Metformin- Contr (06/24/20 00:45) Ns (Ivpb) (Sodium Chloride 0.9% Ivpb Bag (06/24/20 00:45) Ns Iv 500 Ml (Sodium Chloride 0.9%) (06/24/20 00:35) Medications Given in ED Current Medications Medications Dose Ordered Sig/Terrance Route Start Time Stop Time Status Last Admin Dose Admin Piperacillin Sod/ Tazobactam Sod 4.5 gm STK-MED ONCE IV 06/24/20 00:23 06/24/20 00:27 DC 06/24/20 00:35 4.5 GM Sodium Chloride 100 ml @ ud STK-MED ONCE .ROUTE 06/24/20 00:26 06/24/20 00:29 DC 06/24/20 00:36 240 MLS/HR Vital Signs/I&O 06/23/20 22:10 Temp 39.0 Pulse 93 Resp 16 B/P (MAP) 96/79 (85) O2 Delivery Room Air 06/24/20 00:00 Intake Total 1000 ml Balance 1000 ml Capillary Refill : Less Than 3 Seconds Blood Pressure Mean: 85 Progress Note : Time: 00:49 Progress Note Patient is back from CAT scan, abdomen remains soft. The patient denies any tenderness. She is complaining of some nausea. Her temperature is down to 100. I discussed the case with Dr. Carr, cloth mender at [facility] he accepts the patient for admission pending CT results and consult with GI if necessary BP: 85/39 MAP 54 Departure Impression Primary Impression: Sepsis Qualified Codes: A41.9 - Sepsis, unspecified organism; R65.20 - Severe sepsis without septic shock; K72.00 - Acute and subacute hepatic failure without coma Disposition: 02 XFER SHT-TRM HOSP Condition: Stable Transfer Transfer Reason: Exceeds level of care Time Spoke to Accepting Phy: 00:11 Transfer Progress Notes Discussed with Dr Carr who accepts the patient for transfer. Will wait on Ct Scan Abd/pelvis to determine need for talking to GI prior to transfer Transfer Facility: [facility] Method of Transfer: EMS Departure-Patient Inst. Referrals: [facility] (PCP/Family) Primary Care Physician RENETTA FONSECA MD Jun 24, 2020 00:01
[2020-06-24 00:03] LABS: BACTERIA,URINE NEGATIVE /HPF
[2020-06-24] MEDS ORDERED: PIPERACILLIN/TAZOBACTAM (BULK) 4.5 GM in NS (IVPB) 100 ML IV ONE (00:15)
[2020-06-24] MEDS ORDERED: PIPERACILLIN/TAZO 4.5 GM VIAL (ZOSYN) IV ONE (00:23)
[2020-06-24] MEDS ORDERED: NS IV 500 ML 500 ML IV STA (00:24)
[2020-06-24] MEDS ORDERED: NS (IVPB) 100 ML ONE (00:26)
[2020-06-24] MEDS ORDERED: NS IV 500 ML 500 ML ONE (00:35)
[2020-06-24] MEDS ORDERED: NS 100 ML (IVPB) BAG IV ONE (00:45)
[2020-06-24] MEDS ORDERED: HOLD METFORMIN - RECEIVED CONTRAST 20 ML VIAL IV SCH (00:45)
[2020-06-24] MEDS ORDERED: IOHEXOL 350 MG/ML 100 ML (OMNIPAQUE 350) VIAL IV ONE (00:45)
[2020-06-24] MEDS ORDERED: NOREPINEPHRINE 4 MG/250 ML 250 ML IV SCH (01:15)
--- NOTE | 2020-06-24 02:00 | NUR ---
pt's daughter vadim called et. updated on pt's status et. transfer to [id number]
[2020-06-24 02:16] VITALS: BP 128/58
--- NOTE | 2020-06-24 06:04 | Diagnostic Imaging Report ---
EXAMINATION: Chest radiograph, portable AP view. DATE: 06/23/2020 11:50 PM INDICATION: 70-year-old female, fever and weakness. COMPARISON: January 30, 2020. CT chest February 14, 2020. FINDINGS: Heart size and mediastinal contours are unchanged. There are aortic calcifications. The right-sided port catheter tip overlies the upper SVC. There is no identified pneumothorax. There is slight blunting of the left lateral costophrenic angle which is unchanged. There is somewhat coarse and linear lung markings which are unchanged since comparison exam. There is no identified interval focal airspace consolidation. The right humeral head is superiorly subluxed likely relating to a chronic full-thickness rotator cuff tendon tear. The left humeral head also appears superiorly subluxed. IMPRESSION: 1. No identified interval acute cardiopulmonary abnormality. Dictated by: Dictated on workstation # [id number]
--- NOTE | 2020-06-24 07:17 | Diagnostic Imaging Report ---
CT ABDOMEN/PELVIS W TECHNIQUE: Multiple contiguous axial images were obtained through the abdomen and pelvis after administration of intravenous contrast. All CT scans use one or more of the following dose optimizing techniques: automated exposure control, MA and/or KvP adjustment based on a patient size and exam type, or iterative reconstruction. INDICATION: Abdominal pain. History of oral cancer. COMPARISON: CT abdomen and pelvis from 10/14/2017 FINDINGS: Lower chest: Left basilar parenchymal bands are unchanged and chronic in nature. No pleural effusion. Peritoneum: No free intraperitoneal air or fluid. Liver and biliary system: Diffuse hypoattenuation of the liver is indicative of hepatic steatosis. No focal hepatic abnormality. Cholelithiasis. No features of acute cholecystitis. Spleen and Pancreas: Spleen is normal. The pancreas enhances normally without mass lesion or peripancreatic inflammatory changes. Adrenals: Normal. tract: The kidneys enhance normally without suspicious mass or obstruction. Urinary bladder is distended without wall thickening. Uterus and ovaries are normal in appearance. GI tract: Percutaneous gastrostomy tube has retention balloon inflated in the gastric lumen. Fluid distends the stomach and there is no wall thickening. No bowel obstruction. Transverse colon has some mild wall thickening although is decompressed. Appendix is not visualized but there are no features that would suggest acute appendicitis. Vasculature and Lymph nodes: Normal caliber aorta has moderate atherosclerotic plaquing. No abdominal or pelvic lymphadenopathy. Musculoskeletal: Right total hip arthroplasty. No worrisome focal osseous lesions. IMPRESSION: 1. Incomplete distention of the colon could account for the wall thickening. However, subacute colitis could also give this appearance. No abscess or perforation. 2. Hepatic steatosis. 3. Cholelithiasis. 4. I am in general agreement with the preliminary report. Dictated by: Dictated on workstation # [id number]
== END 2020-06-24 02:18 | disposition short-term general hospital (02) ==
LOC: EDUNIT# 22:08 → ER 22:10
DX: A41.9 Sepsis, unspecified organism (principal); J44.9 Chronic obstructive pulmonary disease, unspecified; F41.9 Anxiety disorder, unspecified; F32.9 Major depressive disorder, single episode, unspecified; I48.91 Unspecified atrial fibrillation; Z20.828 Contact with and (suspected) exposure to other viral communicable diseases; Z82.61 Family history of arthritis; Z82.49 Family history of ischemic heart disease and other diseases of the circulatory system; Z80.1 Family history of malignant neoplasm of trachea, bronchus and lung; Z85.828 Personal history of other malignant neoplasm of skin; Z85.818 Personal history of malignant neoplasm of other sites of lip, oral cavity, and pharynx; Z87.891 Personal history of nicotine dependence; Z88.8 Allergy status to other drugs, medicaments and biological substances; Z88.1 Allergy status to other antibiotic agents; Z86.718 Personal history of other venous thrombosis and embolism; Z86.711 Personal history of pulmonary embolism; Z79.01 Long term (current) use of anticoagulants
CPT/HCPCS: 71045; 74177; 80053; 81000; 83605 ×2; 83690; 85007; 85027; 87040; 87077; 87804; 99284; U0002; 36415; 87186; 87635

== ENCOUNTER 2020-09-13 14:54 | Outpatient (RCR) | payer MEDICARE, MEDICAID ==
[~2020-09-13 14:54] MED LIST changes: +MONT10TA32 PO; -MONT10TA97 PO; -MONT5TAB16 PEG; +MONT5TAB23 PEG; -OXYC-471 PO; +OXYC1TAB11 PO; +SERT-413 GT; -SERT50TA9 GT
[2020-09-13 15:13] LABS: BASOPHILS # (AUTO) 0.1 10^3/uL (0.0-0.1); BASOPHILS % (AUTO) 1 % (0-10); EOSINOPHILS # (AUTO) 0.3 10^3/uL (0.0-0.3); EOSINOPHILS % (AUTO) 2 % (0-10); HEMATOCRIT 38 % (35-52); HEMOGLOBIN 12.2 g/dL (11.5-16.0); LYMPHOCYTES # (AUTO) 2.6 10^3/uL (1.0-4.0); LYMPHOCYTES % (AUTO) 24 % (12-44); MEAN CORPUSCULAR HEMOGLOBIN 31 pg (25-34); MEAN CORPUSCULAR HGB CONC 33 g/dL (32-36); MEAN CORPUSCULAR VOLUME 97 fL (80-99); MEAN PLATELET VOLUME 9.3 fL (9.0-12.2); MONOCYTES # (AUTO) 0.8 10^3/uL (0.0-1.0); MONOCYTES % (AUTO) 7 % (0-12); NEUTROPHILS # (AUTO) 7.1 10^3/uL (1.8-7.8); NEUTROPHILS % (AUTO) 66 % (42-75); PLATELET COUNT 285 10^3/uL (130-400); WHITE BLOOD COUNT 10.9 10^3/uL (4.3-11.0)
[2020-09-13 15:34] LABS: ALANINE AMINOTRANSFERASE 177 U/L (0-55); ALBUMIN 3.9 GM/DL (3.2-4.5); ALKALINE PHOSPHATASE 245 U/L (40-136); BILIRUBIN,TOTAL 0.7 MG/DL (0.1-1.0); BUN/CREATININE RATIO 19; CALCIUM 9.2 MG/DL (8.5-10.1); CARBON DIOXIDE 26 MMOL/L (21-32); CHLORIDE 102 MMOL/L (98-107); CREATININE SERUM 0.84 MG/DL (0.60-1.30); GFR ESTIMATED > 60; GLUCOSE 111 MG/DL (70-105); SODIUM 138 MMOL/L (135-145); TOTAL PROTEIN 7.4 GM/DL (6.4-8.2)
== END 2020-12-12 15:00 | disposition home or self-care (01) ==
LOC: ONC 14:54
PROVIDERS: ATTEND Internal Medicine Hematology & Oncology
DX: Z45.2 Encounter for adjustment and management of vascular access device (principal); C04.1 Malignant neoplasm of lateral floor of mouth; C14.8 Malignant neoplasm of overlapping sites of lip, oral cavity and pharynx; K59.00 Constipation, unspecified; M19.90 Unspecified osteoarthritis, unspecified site; J44.9 Chronic obstructive pulmonary disease, unspecified; I47.1 Supraventricular tachycardia; E11.22 Type 2 diabetes mellitus with diabetic chronic kidney disease; N18.9 Chronic kidney disease, unspecified; D63.1 Anemia in chronic kidney disease; I80.209 Phlebitis and thrombophlebitis of unspecified deep vessels of unspecified lower extremity; I48.3 Typical atrial flutter; F41.8 Other specified anxiety disorders; Z96.659 Presence of unspecified artificial knee joint; Z89.432 Acquired absence of left foot; Z95.5 Presence of coronary angioplasty implant and graft; Z95.828 Presence of other vascular implants and grafts; Z92.21 Personal history of antineoplastic chemotherapy; Z92.3 Personal history of irradiation
CPT/HCPCS: 80053; 85025; G0463; 36591

== ENCOUNTER → 2020-11-16 | Outpatient (CLI) | payer MEDICARE, MEDICAID | LOC: CARD 12:00 | PROVIDERS: ATTEND Internal Medicine Cardiovascular Disease | DX: R06.09 Other forms of dyspnea (principal); I51.7 Cardiomegaly | CPT/HCPCS: 93306 ==

== ENCOUNTER 2020-12-13 13:44 | Outpatient (RCR) | payer MEDICARE, MEDICAID ==
[~2020-12-13 13:44] MED LIST changes: -OXYC-464 PO; +OXYC1TAB15 PO; -SULF1TAB35 PO; +SULF1TAB38 PO
[2020-12-13 14:36] LABS: BASOPHILS % (AUTO) 1 % (0-10); EOSINOPHILS # (AUTO) 0.3 10^3/uL (0.0-0.3); EOSINOPHILS % (AUTO) 4 % (0-10); HEMATOCRIT 35 % (35-52); HEMOGLOBIN 11.7 g/dL (11.5-16.0); LYMPHOCYTES # (AUTO) 2.4 10^3/uL (1.0-4.0); LYMPHOCYTES % (AUTO) 31 % (12-44); MEAN CORPUSCULAR HEMOGLOBIN 33 pg (25-34); MEAN CORPUSCULAR HGB CONC 34 g/dL (32-36); MEAN CORPUSCULAR VOLUME 97 fL (80-99); MEAN PLATELET VOLUME 9.1 fL (9.0-12.2); MONOCYTES # (AUTO) 0.6 10^3/uL (0.0-1.0); MONOCYTES % (AUTO) 8 % (0-12); NEUTROPHILS # (AUTO) 4.3 10^3/uL (1.8-7.8); NEUTROPHILS % (AUTO) 55 % (42-75); PLATELET COUNT 292 10^3/uL (130-400); WHITE BLOOD COUNT 7.7 10^3/uL (4.3-11.0)
[2020-12-13 14:53] LABS: ALANINE AMINOTRANSFERASE 126 U/L (0-55); ALBUMIN 3.7 GM/DL (3.2-4.5); ALKALINE PHOSPHATASE 224 U/L (40-136); BILIRUBIN,TOTAL 0.8 MG/DL (0.1-1.0); BUN/CREATININE RATIO 22; CALCIUM 9.5 MG/DL (8.5-10.1); CARBON DIOXIDE 28 MMOL/L (21-32); CHLORIDE 99 MMOL/L (98-107); CREATININE SERUM 0.82 MG/DL (0.60-1.30); GFR ESTIMATED > 60; GLUCOSE 123 MG/DL (70-105); POTASSIUM 4.2 MMOL/L (3.6-5.0); SODIUM 135 MMOL/L (135-145)
[2020-12-13 21:55] LABS: HEPATITIS C ANTIBODY C Non-Reactive (Non-Reactive)
== END 2021-01-25 11:28 | disposition home or self-care (01) ==
LOC: ONC 13:44
PROVIDERS: ATTEND Internal Medicine Hematology & Oncology
DX: Z45.2 Encounter for adjustment and management of vascular access device (principal); C04.1 Malignant neoplasm of lateral floor of mouth; I48.3 Typical atrial flutter; E11.22 Type 2 diabetes mellitus with diabetic chronic kidney disease; N18.9 Chronic kidney disease, unspecified; D63.1 Anemia in chronic kidney disease; M19.90 Unspecified osteoarthritis, unspecified site; I47.1 Supraventricular tachycardia; J43.9 Emphysema, unspecified; I80.209 Phlebitis and thrombophlebitis of unspecified deep vessels of unspecified lower extremity; F41.8 Other specified anxiety disorders; Z96.659 Presence of unspecified artificial knee joint; Z89.432 Acquired absence of left foot; Z95.5 Presence of coronary angioplasty implant and graft; Z95.828 Presence of other vascular implants and grafts; Z92.21 Personal history of antineoplastic chemotherapy; Z92.3 Personal history of irradiation
CPT/HCPCS: 80053; 80074; 85025; G0463; 36591

== ENCOUNTER → 2020-12-17 | Outpatient (CLI) | payer MEDICARE, MEDICAID ==
[~2020-12-17] MED LIST changes: +CATHETER FLUSH 10 ML SYR IV PRN; +HOLD METFORMIN - RECEIVED CONTRAST 20 ML VIAL IV SCH; +IOHEXOL 350 MG/ML 100 ML (OMNIPAQUE 350) VIAL IV ONE; +NS 100 ML (IVPB) BAG IV ONE; +OXYC-464 PO; -OXYC1TAB15 PO; +SULF1TAB35 PO; -SULF1TAB38 PO
--- NOTE | 2020-12-17 18:56 | Diagnostic Imaging Report ---
PROCEDURE: CT Neck, Chest Abdomen and Pelvis with contrast, Abdomen and Pelvis without. TECHNIQUE: Multiple contiguous axial images were obtained through the neck, chest, abdomen, and pelvis after the uneventful bolus administration of intravenous contrast. Precontrast acquisitions through the abdomen and pelvis were performed. Sagittal and coronal reformations are then performed. Auto Exposure Controls were utilized during the CT exam to meet ALARA standards for radiation dose reduction. INDICATION: Malignant neoplasm of the mouth. The previous CT neck exam performed on 05/18/2020 noted postsurgical changes involving the neck but failed to show any sign of a mass or adenopathy. On this exam surgical clips are again seen on each side of the floor of the mouth. There still no evidence for a mass or adenopathy to suggest neoplastic disease. There is no acute abnormality. There is no acute abnormality of the chest, abdomen or pelvis or of the neck identified either. The atherosclerotic disease involving the carotid bifurcation seen previously is again evident and does not appear to have progressed. There may be a hemodynamically significant stenosis of both internal carotid arteries. If further study is desired, then ultrasound would be recommended. The previous CT chest exam of 02/14/2020 noted chronic changes involving the left lung base and the right upper lobe. There is no acute abnormality identified nor is there any sign of parenchymal lung mass to suggest metastatic disease. On this exam the chronic changes are again evident and do not appear to have changed significantly. There is still no acute cardiopulmonary abnormality noted. However the aorta and the pulmonary arteries were not well opacified. The heart size is within normal limits. Coronary artery calcifications are again noted. There is no mediastinal or hilar adenopathy identified. The thyroid gland where visualized is generally unremarkable. As noted on the prior exam there is a right-sided Port-A-Cath in place as well as a left-sided loop recorder device. There is no obvious breast mass. The previous CT abdomen/pelvis exam of 06/24/2020 noted that there was a gastrostomy tube in place. In the interval since the prior study the gastrostomy tube has been removed. The stomach is partially filled with oral contrast and difficult to evaluate. There is no obvious gastric abnormality evident. Also, in interval since the prior exam the patient has undergone a cholecystectomy. The common bile duct near its entry into head of the pancreas is not dilated measuring approximately 7 mm. There is no evidence for an obstructive calculus. The liver, spleen, pancreas, adrenals, and inferior vena cava and portal vein show no sign of an acute abnormality. As seen on the prior exam there is atherosclerotic disease throughout the aorta and the origins the common iliac arteries. The grafts in the distal abdominal aorta and common iliac artery seen previously are again evident and no different. The bone windows show no sign of a fracture or of a destructive lesion. There is degenerative disc and bony disease involving the lower thoracic spine and the thoracolumbar junction. There is a fair amount of fecal material throughout the colon. As on the prior exam the appendix was not well-visualized. There are no indirect signs of acute appendicitis however. There is no pelvic mass or free fluid collection evident. The uterus and urinary bladder are grossly unremarkable. The uterus and urinary bladder are partially obscured by streak artifact related to the total hip prosthesis on the right. IMPRESSION: 1. There are postsurgical changes involving the neck but there is no sign of recurrent neoplasm. 2. There is no acute abnormality of the neck, chest, abdomen or pelvis identified. 3. In the interval since the prior exam the gastrostomy tube has been removed and the patient has undergone a cholecystectomy. 3. There is atherosclerotic disease involving both carotid bifurcations and there may be hemodynamically significant stenosis at the origins of the internal carotid arteries. If further study is desired, then a carotid Doppler exam would be recommended. Dictated by: Dictated on workstation # [id number]
== END ==
LOC: RAD 14:15
PROVIDERS: ATTEND Internal Medicine Hematology & Oncology
DX: C04.9 Malignant neoplasm of floor of mouth, unspecified (principal); I65.23 Occlusion and stenosis of bilateral carotid arteries; Z90.49 Acquired absence of other specified parts of digestive tract
CPT/HCPCS: 70491; 71260; 74178

== ENCOUNTER → 2021-02-20 | Outpatient (CLI) | payer MEDICARE, MEDICAID ==
[~2021-02-20] MED LIST changes: -OXYC-464 PO; +OXYC1TAB15 PO; -SULF1TAB35 PO; +SULF1TAB38 PO
[2021-02-20 10:04] LABS: CREATININE SERUM 0.73 MG/DL (0.60-1.30)
--- NOTE | 2021-02-20 12:22 | Diagnostic Imaging Report ---
PROCEDURE: CT neck soft tissue with contrast. TECHNIQUE: Multiple contiguous axial images were obtained through the neck after the administration of contrast. Auto Exposure Controls were utilized during the CT exam to meet ALARA standards for radiation dose reduction. INDICATION: Floor of mouth cancer. COMPARISON: CT neck with IV contrast from 12/17/2020. FINDINGS: Again seen are the surgical clips along the floor of the mouth and anterior neck bilaterally. There is no suspicious mass or enhancement identified. No fluid collections. The pharynx and larynx demonstrate no suspicious mass or enhancement. No cervical lymphadenopathy. The submandibular glands are absent. Normal thyroid and parotid glands. The major vessels in the neck are grossly patent on this non angiographic exam. Encephalomalacia in the inferior left frontal lobe is partially visualized. The orbits are unremarkable. Advanced spondylotic changes in the cervical spine are greatest at C4-C7. No acute osseous findings. The paranasal sinuses and mastoids are unremarkable. Emphysematous changes in the lung apices. Partially visualized right subclavian CVC. IMPRESSION: Stable postoperative findings involving the bilateral floor of the mouth and anterior neck. No new suspicious mass or enhancement is identified. No cervical lymphadenopathy. Dictated by: Dictated on workstation # [id number]
== END ==
LOC: RAD 10:45
PROVIDERS: ATTEND Otolaryngology Otolaryngology/Facial Plastic Surgery
DX: Z85.818 Personal history of malignant neoplasm of other sites of lip, oral cavity, and pharynx (principal); Z98.890 Other specified postprocedural states
CPT/HCPCS: 36415; 70491; 82565; 84520

== ENCOUNTER → 2021-03-20 | Outpatient (CLI) | payer MEDICARE, MEDICAID ==
[~2021-03-20] MED LIST changes: -CATHETER FLUSH 10 ML SYR IV PRN; -HOLD METFORMIN - RECEIVED CONTRAST 20 ML VIAL IV SCH; -IOHEXOL 350 MG/ML 100 ML (OMNIPAQUE 350) VIAL IV ONE; -NS 100 ML (IVPB) BAG IV ONE
[2021-03-20 13:02] LABS: BASOPHILS # (AUTO) 0.1 10^3/uL (0.0-0.1); BASOPHILS % (AUTO) 1 % (0-10); EOSINOPHILS # (AUTO) 0.2 10^3/uL (0.0-0.3); EOSINOPHILS % (AUTO) 3 % (0-10); HEMATOCRIT 38 % (35-52); HEMOGLOBIN 12.2 g/dL (11.5-16.0); LYMPHOCYTES # (AUTO) 1.8 10^3/uL (1.0-4.0); LYMPHOCYTES % (AUTO) 29 % (12-44); MEAN CORPUSCULAR HEMOGLOBIN 33 pg (25-34); MEAN CORPUSCULAR HGB CONC 32 g/dL (32-36); MEAN CORPUSCULAR VOLUME 101 fL (80-99); MONOCYTES # (AUTO) 0.6 10^3/uL (0.0-1.0); MONOCYTES % (AUTO) 10 % (0-12); NEUTROPHILS # (AUTO) 3.6 10^3/uL (1.8-7.8); NEUTROPHILS % (AUTO) 58 % (42-75); PLATELET COUNT 337 10^3/uL (130-400); WHITE BLOOD COUNT 6.3 10^3/uL (4.3-11.0)
[2021-03-20 13:23] LABS: ALBUMIN 3.8 GM/DL (3.2-4.5); BILIRUBIN,TOTAL 0.6 MG/DL (0.1-1.0); CALCIUM 9.7 MG/DL (8.5-10.1); CREATININE SERUM 0.76 MG/DL (0.60-1.30); POTASSIUM 4.1 MMOL/L (3.6-5.0); TOTAL PROTEIN 7.4 GM/DL (6.4-8.2)
== END ==
LOC: ONC 12:48
PROVIDERS: ATTEND Internal Medicine Hematology & Oncology
DX: C04.1 Malignant neoplasm of lateral floor of mouth (principal); I65.23 Occlusion and stenosis of bilateral carotid arteries; E66.9 Obesity, unspecified; R53.83 Other fatigue; Z86.711 Personal history of pulmonary embolism; Z87.891 Personal history of nicotine dependence
CPT/HCPCS: 80053; 85025; 96523; G0463

== ENCOUNTER → 2021-04-29 | Outpatient (CLI) | payer MEDICARE, MEDICAID ==
[~2021-04-29] MED LIST changes: +RT-ALBUTEROL SULF 2.5 MG/3 ML PRE-MIX VIAL INH ONE; -VERA120T10 PO; +VERA120T27 PO
== END ==
LOC: RT 13:55
PROVIDERS: ATTEND Nurse Practitioner Family
DX: J44.9 Chronic obstructive pulmonary disease, unspecified (principal)
CPT/HCPCS: 94060; 94726; 94729

== ENCOUNTER 2021-09-09 05:38 | Outpatient (CLI) | payer MEDICARE, MEDICAID ==
[~2021-09-09] VITALS: Ht 160 cm; Wt 68.0 kg
[~2021-09-09 05:38] MED LIST changes: +FLUC100T10 PEG; -FLUC100T6 PEG; +MONT-40 PO; -MONT10TA32 PO; -MONT5TAB23 PEG; +MONT5TAB24 PEG; -RT-ALBUTEROL SULF 2.5 MG/3 ML PRE-MIX VIAL INH ONE; -VERA120T27 PO; +VERA120T74 PO
[2021-09-09] MEDS ORDERED: APIX5TAB PO (12:20)
[2021-09-09] MEDS ORDERED: MELA10TA3 PO (12:20)
[2021-09-09] MEDS ORDERED: ESZO2TAB31 PO (12:20)
[2021-09-09] MEDS ORDERED: GABA-490 PO (12:20)
[2021-09-09] MEDS ORDERED: BUDE10.7 IH (12:20)
[2021-09-09] MEDS ORDERED: DULO60CA59 PO (12:20)
[2021-09-09] MEDS ORDERED: CHOL500050 PO (12:20)
[2021-09-09] MEDS ORDERED: ACHD5005 PO (12:20)
[2021-09-09] MEDS ORDERED: PRAV40TA2 PO (12:20)
[2021-09-09] MEDS ORDERED: RT-ALBUINH IH (12:20)
[2021-09-09] MEDS ORDERED: ETAN50PE SQ (12:20)
[2021-09-09] MEDS ORDERED: OMEP20CA18 PO (12:20)
[2021-09-09] MEDS ORDERED: ASPI-999 PO (12:20)
== END 2021-09-09 14:06 | disposition home or self-care (01) ==
LOC: PREOP 05:38
PROVIDERS: ATTEND Surgery
DX: Z01.818 Encounter for other preprocedural examination (principal)

== ENCOUNTER → 2021-09-12 | Outpatient (CLI) | payer MEDICARE, MEDICAID ==
[~2021-09-12] MED LIST changes: +ACHD5005 PO; +ASPI-999 PO; +BUDE10.7 IH; +CHOL500050 PO; +DULO60CA59 PO; +ESZO2TAB31 PO; +GABA-490 PO; +MELA10TA3 PO; +PRAV40TA2 PO; +RT-ALBUINH IH
[2021-09-12 15:30] LABS: BASOPHILS # (AUTO) 0.1 10^3/uL (0.0-0.1); BASOPHILS % (AUTO) 1 % (0-10); EOSINOPHILS # (AUTO) 0.2 10^3/uL (0.0-0.3); EOSINOPHILS % (AUTO) 2 % (0-10); HEMATOCRIT 36 % (35-52); HEMOGLOBIN 12.2 g/dL (11.5-16.0); LYMPHOCYTES % (AUTO) 37 % (12-44); MEAN CORPUSCULAR HEMOGLOBIN 32 pg (25-34); MEAN CORPUSCULAR HGB CONC 34 g/dL (32-36); MEAN CORPUSCULAR VOLUME 96 fL (80-99); MEAN PLATELET VOLUME 9.1 fL (9.0-12.2); MONOCYTES # (AUTO) 0.9 10^3/uL (0.0-1.0); MONOCYTES % (AUTO) 11 % (0-12); NEUTROPHILS # (AUTO) 3.9 10^3/uL (1.8-7.8); NEUTROPHILS % (AUTO) 49 % (42-75); PLATELET COUNT 305 10^3/uL (130-400)
[2021-09-12 16:00] LABS: ALBUMIN 3.7 GM/DL (3.2-4.5); BILIRUBIN,TOTAL 0.4 MG/DL (0.1-1.0); CALCIUM 9.2 MG/DL (8.5-10.1); CREATININE SERUM 0.75 MG/DL (0.60-1.30); POTASSIUM 4.2 MMOL/L (3.6-5.0)
== END ==
LOC: ONC 15:05
PROVIDERS: ATTEND Internal Medicine Hematology & Oncology
DX: Z45.2 Encounter for adjustment and management of vascular access device (principal); C04.1 Malignant neoplasm of lateral floor of mouth; J43.9 Emphysema, unspecified; I48.91 Unspecified atrial fibrillation; E66.9 Obesity, unspecified; Z86.73 Personal history of transient ischemic attack (TIA), and cerebral infarction without residual deficits
CPT/HCPCS: 80053; 85025; G0463; 36591; 99213

== ENCOUNTER 2021-09-17 08:55 | Day surgery (SDC) | payer MEDICARE, MEDICAID ==
[~2021-09-17] VITALS: Ht 160 cm; Wt 68.0 kg
[2021-09-17] MEDS ORDERED: LACTATED RINGERS 1,000 ML IV STA (08:57)
[2021-09-17 09:30] VITALS: BP 118/58
[2021-09-17] MEDS ORDERED: PROPOFOL INJECTION 50 ML IV ONE (11:07)
--- NOTE | 2021-09-17 12:03 | Progress Note-Post Operative ---
Post-Operative Progess Note Surgeon (s)/Television Script Writer (s) Surgeon TREY MIDDLETON DO Television Script Writer: na Pre-Operative Diagnosis screening colonoscopy Post-Operative Diagnosis sigmoid polyp Procedure & Operative Findings Date of Procedure 09/17/21 Procedure Performed/Findings colonoscopy/ hot bx polypectomy Anesthesia Type per [facility] Estimated Blood Loss Estimated blood loss (mL): none Specimens/Packing Specimens Removed sigmoid polyp TREY MIDDLETON DO Sep 17, 2021 12:03
[2021-09-17 12:05] VITALS: BP 135/59
--- NOTE | 2021-09-17 12:05 | Discharge Inst-Simple/Standard ---
Discharge Inst-Standard Patient Instructions/Follow Up Plan of Care/Instructions/FU: 2 weeks Cynthia Activity as Tolerated: Yes Discharge Diet: Regular Diet Other Inst to Patient Verification and Attestation of Medical Student E/M Service A medical student performed and documented this service in my presence. I reviewed and verified all information documented by the medical student and made modifications to such information, when appropriate. I personally performed the physical exam and medical decision making. Trey Marie, Sep 17, 2021,12:05 TREY MARIE DO Sep 17, 2021 12:05
[2021-09-17 12:08] VITALS: BP 135/59
[2021-09-17 12:30] VITALS: BP 126/65
[2021-09-17 12:44] VITALS: BP 132/62
--- NOTE | 2021-09-17 14:40 | Anesthesia-General Post-Op ---
MAC Patient Condition Mental Status/LOC: Same as Preop Cardiovascular: Satisfactory Nausea/Vomiting: Absent Respiratory: Satisfactory Pain: Controlled Complications: Absent Post Op Complications Complications None Follow Up Care/Instructions Patient Instructions None needed. Anesthesiology Discharge Order Discharge Order Patient was doing well after the procedure, no complaints, stable vital signs, no apparent adverse anesthesia problems. TAMIR AHUMADA DO Sep 17, 2021 14:40
--- NOTE | 2021-09-17 17:48 | OPERATIVE REPORT ---
DATE OF SERVICE: 09/17/2021 PREOPERATIVE DIAGNOSIS: Screening colonoscopy. POSTOPERATIVE DIAGNOSIS: Sigmoid colon polyp. PROCEDURES PERFORMED: Colonoscopy with hot biopsy polypectomy x1. SURGEON: Trey Marie DO. ANESTHESIA: Per ELEMENTARY ASSISTANT PRINCIPAL. ESTIMATED BLOOD LOSS: None. COMPLICATIONS: None. INDICATIONS FOR PROCEDURE: The patient is a 71-year-old female needing screening colonoscopy. She understands the risks and benefits of the procedure and wishes to proceed. Consent was signed in the chart. DESCRIPTION OF PROCEDURE: The patient was taken to the endoscopy suite and placed in a left lateral recumbent position. A timeout was performed. A digital rectal exam was performed. No palpable polyps, masses or ulcerations. Scope was inserted in the rectum and advanced all the way to cecum with minimal difficulty. Prep was adequate with irrigation and suction. Scope was then slowly retracted back. No polyps, masses or ulcerations within the cecum, ascending, transverse, descending colon. In the sigmoid colon, a small polyp was present, which hot polypectomy was performed. Scope was then continuously and slowly retracted back. No polyps, masses or ulcerations in the remainder of the sigmoid colon and rectum. Once in the rectum, scope was retroflexed noting no other pathology. Scope was returned to its normal position, slowly withdrawn until completely removed. The patient tolerated the procedure well without any complications and she was taken to the recovery room in stable condition. RECOMMENDATIONS: The patient will have repeat colonoscopy in 5 years if benefits outweigh the risk. Any problems before that be seen at that time. CC: [facility] - requested, unable to deliver. Job ID: [id number] DocumentID: [id number] Dictated Date: 09/17/2021 12:08:34 Pulling Unit Floorhand Date: 09/17/2021 17:46:17 Dictated By: TREY MARIE DO
== END 2021-09-17 12:45 | disposition home or self-care (01) ==
LOC: ENDO 08:55
PROVIDERS: ATTEND Surgery
DX: Z12.11 Encounter for screening for malignant neoplasm of colon (principal); K63.5 Polyp of colon; Z89.432 Acquired absence of left foot

== ENCOUNTER 2021-12-17 14:02 | Outpatient (RCR) | payer MEDICARE, MEDICAID ==
[~2021-12-17 14:02] MED LIST changes: -ETAN50DI2 INJ; -ETAN50DI2 SQ; -ETAN50PE SQ; +ETAN50PE3 SQ; +ETAN50SY INJ; +ETAN50SY SQ
== END 2022-01-09 | disposition home or self-care (01) ==
LOC: ONC 14:02
PROVIDERS: ATTEND Internal Medicine Hematology & Oncology
DX: Z45.2 Encounter for adjustment and management of vascular access device (principal); C01 Malignant neoplasm of base of tongue; J43.9 Emphysema, unspecified; I48.91 Unspecified atrial fibrillation; Z86.73 Personal history of transient ischemic attack (TIA), and cerebral infarction without residual deficits
CPT/HCPCS: 96523

== ENCOUNTER 2022-03-03 09:40 | Outpatient (RCR) | payer MEDICARE, MEDICAID ==
[~2022-03-03 09:40] MED LIST changes: -CATHETER FLUSH 10 ML SYR IV PRN; -HOLD METFORMIN - RECEIVED CONTRAST 20 ML VIAL IV SCH; -IOHEXOL 350 MG/ML 100 ML (OMNIPAQUE 350) VIAL IV ONE; -NS 100 ML (IVPB) BAG IV ONE
[2022-03-03 10:15] LABS: BASOPHILS # (AUTO) 0.1 10^3/uL (0.0-0.1); BASOPHILS % (AUTO) 1 % (0-10); EOSINOPHILS # (AUTO) 0.2 10^3/uL (0.0-0.3); EOSINOPHILS % (AUTO) 2 % (0-10); HEMATOCRIT 38 % (35-52); HEMOGLOBIN 12.8 g/dL (11.5-16.0); LYMPHOCYTES # (AUTO) 1.7 10^3/uL (1.0-4.0); LYMPHOCYTES % (AUTO) 20 % (12-44); MEAN CORPUSCULAR HEMOGLOBIN 33 pg (25-34); MEAN CORPUSCULAR HGB CONC 34 g/dL (32-36); MEAN CORPUSCULAR VOLUME 97 fL (80-99); MEAN PLATELET VOLUME 9.1 fL (9.0-12.2); MONOCYTES # (AUTO) 1.1 10^3/uL (0.0-1.0); MONOCYTES % (AUTO) 13 % (0-12); NEUTROPHILS # (AUTO) 5.3 10^3/uL (1.8-7.8); NEUTROPHILS % (AUTO) 64 % (42-75); PLATELET COUNT 311 10^3/uL (130-400); WHITE BLOOD COUNT 8.3 10^3/uL (4.3-11.0)
[2022-03-03 10:34] LABS: ALBUMIN 3.7 GM/DL (3.2-4.5); BILIRUBIN,TOTAL 0.6 MG/DL (0.1-1.0); CALCIUM 9.1 MG/DL (8.5-10.1); CREATININE SERUM 0.85 MG/DL (0.60-1.30); POTASSIUM 4.1 MMOL/L (3.6-5.0); TOTAL PROTEIN 7.2 GM/DL (6.4-8.2)
== END 2022-03-12 | disposition home or self-care (01) ==
LOC: ONC 09:40
PROVIDERS: ATTEND Internal Medicine Hematology & Oncology
DX: I73.9 Peripheral vascular disease, unspecified (principal); I65.23 Occlusion and stenosis of bilateral carotid arteries; Z92.3 Personal history of irradiation; E11.9 Type 2 diabetes mellitus without complications
CPT/HCPCS: 36415; 80053; 84443; 85025

== ENCOUNTER → 2022-03-03 | Outpatient (CLI) | payer MEDICARE, MEDICAID ==
[~2022-03-03] MED LIST changes: +CATHETER FLUSH 10 ML SYR IV PRN; +HOLD METFORMIN - RECEIVED CONTRAST 20 ML VIAL IV SCH; +IOHEXOL 350 MG/ML 100 ML (OMNIPAQUE 350) VIAL IV ONE; +NS 100 ML (IVPB) BAG IV ONE
--- NOTE | 2022-03-03 18:26 | Diagnostic Imaging Report ---
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 COMPARISON: CT neck of 02/20/2021 TECHNIQUE: CT imaging of the neck and chest was performed with IV contrast. Automatic exposure controls were utilized to keep dose as low as reasonably achievable.. FINDINGS: NECK: Stable postoperative changes in the right and left lateral aspects of the floor of the mouth. Additionally, surgical clips in the lateral aspect of the neck are unchanged on both sides. No lymphadenopathy has developed. No features of vocal cord paralysis. The epiglottis is normal in thickness. No retropharyngeal or parapharyngeal fluid collection. Thyroid is normal where seen. Jugular veins are patent bilaterally. Atherosclerotic plaquing is present in the proximal carotid bulbs. 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 Right ICA remains patent. No concerning abnormality of the cervical spine. CHEST: No abnormality of the trachea. No pneumonia or edema. There is a bandlike area of atelectasis in the left lower lobe that is stable. There are no suspicious pulmonary nodules that would suggest metastasis. No pleural effusion or pneumothorax. No mediastinal or hilar lymphadenopathy. Heart is normal in size. Normal caliber thoracic aorta with moderate atherosclerotic plaquing. Severe coronary artery calcifications are unchanged. Cholecystectomy. No concerning abnormality in the upper abdomen. No worrisome focal osseous lesion within the thoracic spine. IMPRESSION: 1. Stable postsurgical changes of the neck without features of local recurrence. 2. No metastatic disease within the chest. 3. 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 Dictated by: Dictated on workstation # [id number]
== END ==
LOC: RAD 10:16
PROVIDERS: ATTEND Internal Medicine Hematology & Oncology
DX: C04.1 Malignant neoplasm of lateral floor of mouth (principal); I65.22 Occlusion and stenosis of left carotid artery; Z98.890 Other specified postprocedural states
CPT/HCPCS: 70491; 71260

== ENCOUNTER 2022-03-24 14:21 | Outpatient (RCR) | payer MEDICARE, MEDICAID ==
[~2022-03-24 14:21] MED LIST changes: +LEVO750T PO; -LEVO750T39 PO; -MONT5TAB24 PEG; +MONT5TAB25 PEG
== END 2022-04-11 | disposition home or self-care (01) ==
LOC: ONC 14:21
PROVIDERS: ATTEND Internal Medicine Hematology & Oncology
DX: C04.1 Malignant neoplasm of lateral floor of mouth (principal); E11.9 Type 2 diabetes mellitus without complications; E66.9 Obesity, unspecified; R53.83 Other fatigue; Z86.16 Personal history of COVID-19
CPT/HCPCS: 99213

== ENCOUNTER 2022-04-30 14:25 | Outpatient (RCR) | payer MEDICARE, MEDICAID ==
[~2022-04-30 14:25] MED LIST changes: +ALBU8.5H6 IH; -RT-ALBUINH IH
[2022-04-30 16:11] LABS: BASOPHILS % (AUTO) 0 % (0-10); EOSINOPHILS # (AUTO) 0.2 10^3/uL (0.0-0.3); EOSINOPHILS % (AUTO) 2 % (0-10); HEMATOCRIT 32 % (35-52); HEMOGLOBIN 10.2 g/dL (11.5-16.0); LYMPHOCYTES # (AUTO) 2.4 X 10^3 (1.0-4.0); LYMPHOCYTES % (AUTO) 31 % (12-44); MEAN CORPUSCULAR HEMOGLOBIN 32 pg (25-34); MEAN CORPUSCULAR HGB CONC 32 g/dL (32-36); MEAN CORPUSCULAR VOLUME 101 fL (80-99); MEAN PLATELET VOLUME 9.6 fL (9.0-12.2); MONOCYTES # (AUTO) 0.7 X 10^3 (0.0-1.0); MONOCYTES % (AUTO) 9 % (0-12); NEUTROPHILS # (AUTO) 4.4 X 10^3 (1.8-7.8); NEUTROPHILS % (AUTO) 57 % (42-75); PLATELET COUNT 237 10^3/uL (130-400); WHITE BLOOD COUNT 7.8 10^3/uL (4.3-11.0)
[2022-04-30 16:26] LABS: ALBUMIN 3.8 GM/DL (3.2-4.5); BILIRUBIN,TOTAL 0.9 MG/DL (0.1-1.0); CALCIUM 9.2 MG/DL (8.5-10.1); CREATININE SERUM 0.82 MG/DL (0.60-1.30); POTASSIUM 4.2 MMOL/L (3.6-5.0); TOTAL PROTEIN 7.2 GM/DL (6.4-8.2)
== END 2022-05-12 | disposition home or self-care (01) ==
LOC: ONC 14:25
PROVIDERS: ATTEND Internal Medicine Hematology & Oncology
DX: C04.1 Malignant neoplasm of lateral floor of mouth (principal); E11.9 Type 2 diabetes mellitus without complications; E66.9 Obesity, unspecified; R53.83 Other fatigue
CPT/HCPCS: 80053; 85025; G0463; 36415; 99213

== ENCOUNTER → 2022-05-09 | Outpatient (CLI) | payer OTHER, MEDICAID ==
[~2022-05-09] MED LIST changes: -ALBU8.5H6 IH; +CATHETER FLUSH 10 ML SYR IV PRN; +HOLD METFORMIN - RECEIVED CONTRAST 20 ML VIAL IV SCH; +IOHEXOL 350 MG/ML 100 ML (OMNIPAQUE 350) VIAL IV ONE; +NS 100 ML (IVPB) BAG IV ONE; +RT-ALBUINH IH
--- NOTE | 2022-05-09 18:15 | Diagnostic Imaging Report ---
EXAMINATION: CT head with and without contrast. CT neck with intravenous contrast. TECHNIQUE: Multiple contiguous axial images were obtained through the neck after the uneventful administration of intravenous contrast. Pre and post contrast images of the head were obtained as well. All CT scans use one or more of the following dose optimizing techniques: automated exposure control, MA and/or KvP adjustment based on patient size and exam type or iterative reconstruction. HISTORY: History of malignancy in the lateral floor of the mouth. COMPARISON: 03/03/2022. FINDINGS: Head CT: No large acute territorial ischemia, mass or hemorrhage. No midline shift or mass effect. No abnormal enhancement. 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 There is ex vacuo dilation of the left lateral ventricle. Decreased attenuation is seen in the periventricular and subcortical white matter. The ventricles and cortical sulci are prominent. The basilar cisterns are patent and unremarkable. The orbits are normal. Paranasal sinuses are normal. Small right-sided mastoid effusion is present. No soft tissue abnormality is seen. No osseus lesions or fractures are seen. Neck CT: Stable postsurgical changes in the floor of the mouth with stable bilateral cervical lymph node dissection changes. No evidence of enhancing mass recurrence. No new lymphadenopathy is seen in the neck. No airway compromise. The parapharyngeal fat planes are preserved. No prevertebral or retropharyngeal fluid collection. The laryngeal structures are symmetric and unremarkable. The parotid and thyroid gland are unremarkable. There is occlusion of the left ICA, similar to the prior exam. No acute osseous abnormality in the cervical spine. There is straightening of the cervical spine. The included lung apices are clear. IMPRESSION: 1. Stable postsurgical changes in the floor of the mouth with bilateral cervical lymph node dissection changes. No evidence of recurrent mass or new lymphadenopathy. 2. No large acute territorial ischemia. No acute hemorrhage or mass. No abnormal intracranial enhancement. 3. Stable chronic occlusion of the left ICA with findings consistent with prior infarct in the left frontal lobe. Dictated by: Dictated on workstation # [id number]
== END ==
LOC: RAD 10:09
PROVIDERS: ATTEND Internal Medicine Hematology & Oncology
DX: I65.22 Occlusion and stenosis of left carotid artery (principal); Z01.818 Encounter for other preprocedural examination
CPT/HCPCS: 70470; 70491

== ENCOUNTER 2022-05-28 13:02 | Outpatient (RCR) | payer MEDICARE, MEDICAID ==
[~2022-05-28 13:02] MED LIST changes: +ALBU8.5H6 IH; -CATHETER FLUSH 10 ML SYR IV PRN; +CLOP-31 PO; -CLOP75TA69 PO; -HOLD METFORMIN - RECEIVED CONTRAST 20 ML VIAL IV SCH; -IOHEXOL 350 MG/ML 100 ML (OMNIPAQUE 350) VIAL IV ONE; -NS 100 ML (IVPB) BAG IV ONE; -RT-ALBUINH IH
== END 2022-06-11 | disposition home or self-care (01) ==
LOC: ONC 13:02
PROVIDERS: ATTEND Internal Medicine Hematology & Oncology
DX: C04.1 Malignant neoplasm of lateral floor of mouth (principal); E11.9 Type 2 diabetes mellitus without complications; E66.9 Obesity, unspecified; J43.9 Emphysema, unspecified
CPT/HCPCS: 99213

== ENCOUNTER 2022-06-19 19:18 | Emergency (ER) | payer MEDICARE, MEDICAID ==
[2022-06-19 20:03] VITALS: BP 148/94
== END 2022-06-19 20:48 | disposition left against medical advice (07) ==
LOC: EDUNIT# 19:18 → ER 19:20
DX: M79.89 Other specified soft tissue disorders (principal); Z28.310 Unvaccinated for COVID-19
CPT/HCPCS: 99282

== ENCOUNTER 2022-07-11 06:44 | Inpatient (IN) | payer MEDICARE, MEDICAID ==
[~2022-07-11] VITALS: Ht 170 cm; Wt 78.0 kg
[~2022-07-11 06:44] MED LIST changes: -MONT5TAB25 PEG; +MONT5TAB25 PO
[2022-07-11 07:26] VITALS: BP 109/72
[2022-07-11 07:30] LABS: BASOPHILS # (AUTO) 0.1 10^3/uL (0.0-0.1); BASOPHILS % (AUTO) 0 % (0-10); EOSINOPHILS % (AUTO) 0 % (0-10); HEMATOCRIT 38 % (35-52); HEMOGLOBIN 12.5 g/dL (11.5-16.0); LYMPHOCYTES # (AUTO) 1.2 10^3/uL (1.0-4.0); LYMPHOCYTES % (AUTO) 4 % (12-44); MEAN CORPUSCULAR HEMOGLOBIN 31 pg (25-34); MEAN CORPUSCULAR HGB CONC 33 g/dL (32-36); MEAN CORPUSCULAR VOLUME 95 fL (80-99); MEAN PLATELET VOLUME 9.2 fL (9.0-12.2); MONOCYTES # (AUTO) 0.9 10^3/uL (0.0-1.0); MONOCYTES % (AUTO) 3 % (0-12); NEUTROPHILS # (AUTO) 28.1 10^3/uL (1.8-7.8); NEUTROPHILS % (AUTO) 92 % (42-75); PLATELET COUNT 361 10^3/uL (130-400)
[2022-07-11 07:33] LABS: ALBUMIN 3.5 GM/DL (3.2-4.5); CHLORIDE 104 MMOL/L (98-107); POTASSIUM 4.1 MMOL/L (3.6-5.0); SODIUM 137 MMOL/L (135-145)
[2022-07-11 07:34] LABS: WHITE BLOOD COUNT 30.7 10^3/uL (4.3-11.0)
[2022-07-11 07:35] LABS: CALCIUM 9.7 MG/DL (8.5-10.1); INR 1.1 (0.8-1.4); PROTHROMBIN TIME PATIENT 14.6 SEC (12.2-14.7)
[2022-07-11 07:36] LABS: GLUCOSE 172 MG/DL (70-105); TOTAL PROTEIN 7.9 GM/DL (6.4-8.2)
[2022-07-11 07:37] LABS: CARBON DIOXIDE 23 MMOL/L (21-32)
[2022-07-11 07:38] LABS: BILIRUBIN,TOTAL 1.1 MG/DL (0.1-1.0)
[2022-07-11 07:39] LABS: ALKALINE PHOSPHATASE 175 U/L (40-136)
[2022-07-11 07:40] LABS: CREATININE SERUM 0.94 MG/DL (0.60-1.30); GFR ESTIMATED 64
[2022-07-11 07:41] LABS: BUN/CREATININE RATIO 18
[2022-07-11 07:43] LABS: ALANINE AMINOTRANSFERASE 93 U/L (0-55)
--- NOTE | 2022-07-11 07:51 | ED General ---
General Chief Complaint: Oral/Throat Problems Stated Complaint: SORE THROAT,HISTORY OF THROAT CA Nursing Triage Note: ARRIVED VIA WC TO ROOM 06. DR HUMPHREY IN ROOM WITH PT. PT WITH AUDIBLE GURGLING. ET SUCTIONING PT WHEN SHE LAYS BACK INTO BED. PT HAS HAD A SORE THROAT X2 DAYS AND A HX OF THROAT CANCER. WEARS OXYGEN AT NIGHT AND ARIVED WITH A SAT OF 79% OF ROOM AIR. Source of Information: Patient, Family Exam Limitations: No Limitations History of Present Illness Date Seen by Provider: Jul 11, 2022 Time Seen by Provider: 07:05 Initial Comments Here with son who reports that his mom has had gurgling breathing for 2 days. She apparently has had sore throat and the son thinks that she had a fever last night. She is not vaccinated for COVID or influenza. She does have history of throat cancer and has had radiation and chemotherapy. She does have port in place. Patient reports that she has sore throat and neck pain. No report of vomiting. Patient reports that she has had some dysuria. She does admit to difficulty with breathing. She is having difficulty with swallowing due to significant pain. She admits to runny nose. Timing/Duration: 2-3 Days, Getting Worse Severity: Moderate Associated Systoms: Cough, Fever/Chills; No Nausea/Vomiting; Shortness of Air, Weakness Allergies and Home Medications Allergies Coded Allergies: ceftriaxone (Verified Allergy, Severe, DIFFICULTY BREATING, 07/05/19) levofloxacin (Verified Allergy, Severe, C-DIFF, 07/05/19) Patient Home Medication List Home Medication List Reviewed: Yes Albuterol Sulfate (Albuterol Sulfate) 2.5 Mg/3 Ml Vial.neb, 2.5 MG NEB Q6H PRN for SHORTNESS OF BREATH, (Reported) Entered as Reported by: MAGDALENA WALLER on 10/24/15 1102 Albuterol Sulfate (Ventolin Hfa) 1 Puff Puff, 2 PUFF IH Q4H PRN for DYSPEPSIA, (Reported) Entered as Reported by: JAMES WHITFIELD on 09/09/21 1220 Apixaban (Eliquis) 5 Mg Tablet, 5 MG PO BID, (Reported) Entered as Reported by: JAMES WHITFIELD on 09/09/21 1220 Aspirin (Aspirin) 81 Mg Tab.chew, 81 MG PO DAILY, (Reported) Entered as Reported by: JAMES WHITFIELD on 09/09/21 122 Budesonide/Glycopyr/Formoterol (Breztri Aerosphere Inhaler) 10.7 Gm Hfa.aer.ad, 10.7 GM IH BID, (Reported) Entered as Reported by: JAMES WHITFIELD on 09/09/21 122 Cholecalciferol (Vitamin D3) (Vitamin D3) 125 Mcg Capsule, 125 MCG PO DAILY, (Reported) Entered as Reported by: JAMES WHITFIELD on 09/09/21 122 Duloxetine HCl (Duloxetine HCl) 60 Mg Capsule.dr, 60 MG PO DAILY, (Reported) Entered as Reported by: JAMES WHITFIELD on 09/09/21 122 Eszopiclone (Eszopiclone) 2 Mg Tablet, 2 MG PO DAILY, (Reported) Entered as Reported by: JAMES WHITFIELD on 09/09/21 122 Etanercept (Enbrel) 50 Mg/1 Ml Pen.injctr, 50 MG SQ WEEK, (Reported) Entered as Reported by: JAMES WHITFIELD on 09/09/21 122 Gabapentin (Gabapentin) 400 Mg Capsule, 300 MG PO TID, (Reported) Entered as Reported by: JAMES WHITFIELD on 09/09/21 122 Hydrocodone/Acetaminophen (Hydrocodone-Acetamin 5-325 mg) 1 Each Tablet, 1 TAB PO BID, (Reported) Entered as Reported by: JAMES WHITFIELD on 09/09/21 122 Melatonin (Melatonin) 10 Mg Tablet.er, 20 MG PO HS, (Reported) Entered as Reported by: JAMES WHITFIELD on 09/09/21 122 Montelukast Sodium (Montelukast Sodium) 5 Mg Tab.chew, 10 MG PEG HS, (Reported) Entered as Reported by: MAGDALENA WALLER on 08/17/19 110 Omeprazole (Omeprazole) 20 Mg Capsule.dr, 20 MG PO UD, (Reported) Entered as Reported by: JAMES WHITFIELD on 09/09/21 122 Pravastatin Sodium (Pravastatin Sodium) 40 Mg Tablet, 40 MG PO DAILY, (Reported) Entered as Reported by: JAMES WHITFIELD on 09/09/21 122 Tiotropium [place] (Spiriva Respimat 2.5MCG/ACTUATION) 4 Gm Mist.inhal, 1 PUFF INH BID, (Reported) Entered as Reported by: TODD QUEZADA on 01/09/16 1112 Review of Systems Review of Systems Constitutional: No chills; fever, weakness EENTM: nose congestion, throat pain Respiratory: cough, short of breath Cardiovascular: No chest pain, No edema Gastrointestinal: No nausea, No vomiting Genitourinary: decreased output, dysuria Musculoskeletal: No back pain; muscle pain, neck pain Skin: No change in color, No lesions Psychiatric/Neurological: Denies Headache; Weakness All Other Systems Reviewed Negative Unless Noted: Yes Past Kcamahf-Nrhacw-Ntkamq Hx Patient Social History Tobacco Use?: No Smoking Status: Former Smoker Substance use?: No Alcohol Use?: No Immunizations Up To Date Tetanus Booster (TDap): Unknown PED Vaccines UTD: Yes First/Initial COVID19 Vaccinat: NO Second COVID19 Vaccination Estevan: NO Third COVID19 Vaccination Date: NO Seasonal Allergies Seasonal Allergies: Yes Past Medical History Surgeries: Yes (heart ablation, mouth cancer, feeding tube,peripheral stents;LOOP RECORDER;) Abdominal, Amputation, Cardiac, Joint Replacement, Orthopedic, Vascular Surgery Respiratory: Yes (O2 2.5L NC AT NIGHT AND PRN;P.E. 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 History: Menopausal Sexually Transmitted Disease: No HIV/AIDS: No Genitourinary: No Gastrointestinal: Yes (FEEDING TUBE;PANCREATITIS 2003) Gastroesophageal Reflux, Pancreatitis, C-Diff, Hiatal Hernia, Ulcer Musculoskeletal: Yes (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 ) Amputee, Arthritis, Rheumatoid Arthritis Endocrine: Yes Diabetes, Non-Insulin dep HEENT: Yes (GLASSES; ORAL CANCER-S/P SURGERY/CHEMO/RADIATION) Dysphagia, Tinnitis Loss of Vision: Bilateral Hearing Impairment: Denies Cancer: Yes (SKIN CANCER OF FACE; ORAL CANCER) Skin, Oral Did You Recieve Any Treatments: Yes What Type of Treatment Did You: Chemotherapy, Radiation, Surgical Intervention Psychosocial: Yes Sleep Difficulties, Anxiety, Depression Integumentary: No Blood Disorders: No Adverse Reaction/Blood Tranf: No (N/A) Family Medical History Reviewed Nursing Family Hx Cancer 09 SISTER Family history: Arthritis 09 BROTHER 09 SISTER Family history: Cardiovascular disease 09 SISTER Family history: Thyroid disorder 09 SISTER Malignant neoplasm of lung 09 SISTER Heart Disease PSH: -EGD'S/PEG TUBES -LAST ONE 06/2019 -LEFT FOREFOOT AMPUTATION DUE TO GANGRENE 2013 -CARDIAC CATHS AND PERIPHERAL CATHS--ANGIOPLASTY AND STENTS LEFT SFA AND COMMON ILIAC 05/2013; AND REPEAT INTERVENTION AND STENTING 02/2014; BILATERAL ILIAC STENTS; ATHERECTOMY AND ANGIOPLASTY OF R SFA, POPLITEAL AND ANTERIOR TIBITAL ARTERIES 03/2014 -PORT RIGHT CHEST -PERIPHERAL ARTERY STENTS AND ANGIOPLASTY -CARDIAC ABLATION 01/2018 FOR AVNRT/AFIB-FLUTTER -RIGHT KNEE REPLACEMENT-12/2016 -RIGHT TOTAL HIP REPLACEMENT 2003 -DEBRIDEMENT OF LEFT SHOULDER DUE TO SPIDER BITE 2014 -LOOP RECORDER 04/06/2018 Physical Exam-Suspected Sepsis Physical Exam Vital Signs Vital Signs - First Documented 07/11/22 07/11/22 06:55 07:07 Temp 35.8 Pulse 106 Resp 20 B/P (MAP) 131/77 (95) Pulse Ox 78 O2 Delivery Room Air O2 Flow Rate 10.00 Capillary Refill : Less Than 3 Seconds Blood Pressure Mean: 95 Height, Weight, BMI Height: 5'2.00" Weight: 180lbs. 0.0oz. [id number]; 25.00 BMI Method:Actual General Appearance: Moderate Distress, Thin HEENT: PERRL/EOMI, Pharyngeal Erythema, Other (Gurgling and sputum noted posterior that reaccumulate's after suctioning.) Neck: Non Tender, Supple Respiratory: Crackles (Throughout), Expiration, Inspiration, Respiratory Distress (Mild) Cardiovascular: No Murmur, Tachycardia Gastrointestinal: Non Tender, Soft Back: Normal Inspection, No CVA Tenderness, No Vertebral Tenderness Extremity: Normal Range of Motion, Non Tender Neurologic/Psychiatric: Alert, Oriented x3 Skin: normal color, warm/dry Focused Exam Lactate Level 07/11/22 07:06: Lactic Acid Level 2.63*H Lactic Acid Level Laboratory Tests Test 07/11/22 07:06 Lactic Acid Level 2.63 MMOL/L (0.50-2.00) *H Progress/Results/Core Measures Suspected Sepsis SIRS Temperature: Pulse: 105 Respiratory Rate: 38 Laboratory Tests 07/11/22 07:06: White Blood Count 30.7*H Blood Pressure 109 /72 Mean: 95 07/11/22 07:06: Lactic Acid Level 2.63*H Laboratory Tests 07/11/22 07:06: Creatinine 0.94, INR Comment 1.1, Platelet Count 361, Total Bilirubin 1.1H Results/Orders Lab Results Laboratory Tests Test 07/11/22 07:06 Range/Units White Blood Count 30.7 *H 4.3-11.0 10^3/uL Red Blood Count 3.99 3.80-5.11 10^6/uL Hemoglobin 12.5 11.5-16.0 g/dL Hematocrit 38 35-52 % Mean Corpuscular Volume 95 80-99 fL Mean Corpuscular Hemoglobin 31 25-34 pg Mean Corpuscular Hemoglobin Concent 33 32-36 g/dL Red Cell Distribution Width 13.1 10.0-14.5 % Platelet Count 361 130-400 10^3/uL Mean Platelet Volume 9.2 9.0-12.2 fL Immature Granulocyte % (Auto) 2 % Neutrophils (%) (Auto) 92 H 42-75 % Lymphocytes (%) (Auto) 4 L 12-44 % Monocytes (%) (Auto) 3 0-12 % Eosinophils (%) (Auto) 0 0-10 % Basophils (%) (Auto) 0 0-10 % Neutrophils # (Auto) 28.1 H 1.8-7.8 10^3/uL Lymphocytes # (Auto) 1.2 1.0-4.0 10^3/uL Monocytes # (Auto) 0.9 0.0-1.0 10^3/uL Eosinophils # (Auto) 0.0 0.0-0.3 10^3/uL Basophils # (Auto) 0.1 0.0-0.1 10^3/uL Immature Granulocyte # (Auto) 0.5 H 0.0-0.1 10^3/uL Neutrophils % (Manual) 70 % Lymphocytes % (Manual) 4 % Monocytes % (Manual) 1 % Eosinophils % (Manual) 0 % Basophils % (Manual) 0 % Band Neutrophils 25 % Blood Morphology Comment NORMAL Prothrombin Time 14.6 12.2-14.7 SEC INR Comment 1.1 0.8-1.4 Activated Partial Thromboplast Time 37 H 24-35 SEC Sodium Level 137 135-145 MMOL/L Potassium Level 4.1 3.6-5.0 MMOL/L Chloride Level 104 98-107 MMOL/L Carbon Dioxide Level 23 21-32 MMOL/L Anion Gap 10 5-14 MMOL/L Blood Urea Nitrogen 17 7-18 MG/DL Creatinine 0.94 0.60-1.30 MG/DL Estimat Glomerular Filtration Rate 64 BUN/Creatinine Ratio 18 Glucose Level 172 H 70-105 MG/DL Lactic Acid Level 2.63 *H 0.50-2.00 MMOL/L Calcium Level 9.7 8.5-10.1 MG/DL Corrected Calcium 10.1 8.5-10.1 MG/DL Total Bilirubin 1.1 H 0.1-1.0 MG/DL Aspartate Amino Transf (AST/SGOT) 50 H 5-34 U/L Alanine Aminotransferase (ALT/SGPT) 93 H 0-55 U/L Alkaline Phosphatase 175 H 40-136 U/L Troponin I < 0.028 <0.028 NG/ML C-Reactive Protein High Sensitivity 12.69 H 0.00-0.50 MG/DL B-Type Natriuretic Peptide 385.7 H <100.0 PG/ML Total Protein 7.9 6.4-8.2 GM/DL Albumin 3.5 3.2-4.5 GM/DL Procalcitonin 4.39 H <0.10 NG/ML Influenza Type A (RT-PCR) Not Detected Not Detecte Influenza Type B (RT-PCR) Not Detected Not Detecte SARS-CoV-2 RNA (RT-PCR) Not Detected Not Detecte My Orders Orders - DANA HUMPHREY MD Cbc With Automated Diff (07/11/22 07:16) Comprehensive Metabolic Panel (07/11/22 07:16) Blood Culture (07/11/22 07:16) Sputum Culture (07/11/22 07:16) Urinalysis (07/11/22 07:16) Urine Culture (07/11/22 07:16) Protime With Inr (07/11/22 07:16) Partial Thromboplastin Time (07/11/22 07:16) Chest 1 View, Ap/Pa Only (07/11/22 07:16) Ed Iv/Invasive Line Start (07/11/22 07:16) Ed Iv/Invasive Line Start (07/11/22 07:16) Troponin I Isma (07/11/22 07:16) Vital Signs Adult Sepsis Patie Q15M (07/11/22 07:16) O2 (07/11/22 07:16) Remove Rings In Anticipation O (07/11/22 07:16) Lactic Acid Analyzer (07/11/22 07:16) Influenza A And B By Pcr (07/11/22 07:16) Covid 19 Inhouse Test (07/11/22 07:16) Bnp [place] (07/11/22 07:16) Hs C Reactive Protein (07/11/22 07:16) Procalcitonin (Pct) (07/11/22 07:16) Ekg Tracing (07/11/22 07:16) Manual Differential (07/11/22 07:06) Ns Iv 1000 Ml (Sodium Chloride 0.9%) (07/11/22 08:00) Piperacillin Sodium/Tazobactam (Zosyn Vi (07/11/22 08:00) Methylprednisolone Sod Succ (Solu-Medrol (07/11/22 08:30) Arterial Blood Gas (07/11/22 08:26) Code/Resuscitation (07/11/22 08:26) Ed Admission (Communication) (07/11/22 08:26) Medications Given in ED Current Medications Medications Dose Ordered Sig/Terrance Route Start Time Stop Time Status Last Admin Dose Admin Piperacillin Sod/ Tazobactam Sod 4.5 gm/Sodium Chloride 100 ml @ 200 mls/hr ONCE ONCE IV 07/11/22 08:00 07/11/22 08:29 DC 07/11/22 08:11 200 MLS/HR Sodium Chloride 1,000 ml @ 0 mls/hr Q0M ONCE IV 07/11/22 08:00 07/11/22 08:01 DC 07/11/22 08:11 1,000 MLS/HR Vital Signs/I&O 07/11/22 07/11/22 07/11/22 07/11/22 06:55 07:07 07:26 09:15 Temp 35.8 Pulse 106 105 Resp 20 38 92 B/P (MAP) 131/77 (95) 111/55 Pulse Ox 78 94 100 O2 Delivery Room Air OxyMask NIV Bilevel O2 Flow Rate 10.00 100.00 Capillary Refill : Less Than 3 Seconds Blood Pressure Mean: 95 Progress Note : Progress Note Seen and evaluated. O2 sat initially low 70s. Patient placed on 6 L via nasal cannula and that brought the oxygen up to mid 80s. I did do oral suctioning with Yonker catheter and cleared fair amount of sputum but this did reaccumulate. There is report of fever. Given this and her respiratory difficulty, we will initiate sepsis protocol including IV, CBC, CMP, troponin, BNP, CRP and procalcitonin. We will add UA and chest x-ray and check COVID and influenza. IV to be established via port. 0730: We have switched to mask and now have gone to BiPAP as patient's oxygen saturations remained mid 80s despite high flow O2. Monitor patient. 0755: I have reviewed the chest x-ray and it does appear that she has left lower lobe pneumonia currently. Pending radiology report. Given elevated white count, elevated CRP, elevated lactic acid and presenting symptoms, we will go ahead and initiate treatment for pneumonia. Patient is allergic to ceftriaxone and levofloxacin. We will initiate Zosyn 4.5 g IV. Normal saline 1 L bolus ordered. She is not hypotensive nor is her lactic acid greater than 4 and she does not require high-volume fluid resuscitation but would benefit from IV fluids. Her BNP is slightly elevated but I think 1 L will be safe and we will continue to monitor. She is tolerating BiPAP okay at this point. I did discuss CODE STATUS with the patient and she requested full code at this point. 0830: I have discussed the case with Dr. Santa and she accepts patient for admission, inpatient status to the ICU. Repeat evaluation on shows O2 saturation at 98% and she is more comfortable now. We will initiate Solu-Medrol 125 mg IV as she does have history of COPD. She is tolerating the Zosyn well. Dr. Santa has requested ABG which has been ordered. Dr. Santa agrees with the evaluation and care thus far and she will evaluate admission orders. Discussed findings and concerns with patient and family who agreed to admission. Influenza and COVID are negative. White count, CRP and procalcitonin are elevated indicating bacterial pneumonia. Renal function is normal. ECG Initial ECG Impression Date: Jul 11, 2022 Initial ECG Impression Time: 07:39 Initial ECG Rate: 94 Initial ECG Rhythm: S.Tach Comment Sinus tachycardia with normal axis. No evidence of ST elevation DC. Normal QRS duration. Interpreted by me. Diagnostic Imaging Diagonstic Imaging: Xray Plain Films/CT/US/NM/MRI: chest Comments NAME: ALIYAH ROLLINS [facility] REC#: [id number] PT STATUS: REG ER : 1950 PHYSICIAN: DANA HUMPHREY MD ADMIT DATE: 07/11/22/ER Draft Date of Exam:07/11/22 CHEST 1 VIEW, AP/PA ONLY INDICATION: Audible gurgles. Throat pain for 2 days. History of throat carcinoma. Low O2 saturation. EXAMINATION: Chest 07/11/2022 COMPARISON: 06/23/2020 FINDINGS: Chest port on the right stable. Heart unchanged. There is likely infiltrate at the left lung base. Tiny adjacent effusion noted. Remaining lungs demonstrate chronic findings. No pneumothorax. IMPRESSION: 1. Suspected left base infiltrate and adjacent small effusion. Follow-up recommended to assure complete resolution. 2. Not mentioned in the body of the report there is a possible prominent lymph node in the right perihilar region which should be reevaluated at follow-up. Dictated on workstation # [id number] Dict: 07/11/22 0754 Trans: 07/11/22 0757 [facility] [id number] Interpreted by: JARVIS BAIN MD Electronically signed by: Reviewed: Reviewed by Me Critical Care Note Critical Care Start Time: 07:05 Stop Time: 08:30 Total Time (minutes) 30 Departure Communication (Admissions) Time/Spoke to Admitting Phy: 07:25 Impression Primary Impression: Respiratory failure with hypoxia Qualified Codes: J96.01 - Acute respiratory failure with hypoxia Additional Impression: Left lower lobe pneumonia Qualified Codes: J18.9 - Pneumonia, unspecified organism Disposition: ADMITTED INPATIENT Condition: Critical Admissions Decision to Admit Reason: Admit from ER (General) Decision to Admit/Date: Jul 11, 2022 Time/Decision to Admit Time: 07:25 Departure-Patient Inst. Referrals: [facility] (PCP/Family) Primary Care Physician DANA HUMPHREY MD Jul 11, 2022 07:51
--- NOTE | 2022-07-11 07:58 | Diagnostic Imaging Report ---
INDICATION: Audible gurgles. Throat pain for 2 days. History of throat carcinoma. Low O2 saturation. EXAMINATION: Chest 07/11/2022 COMPARISON: 06/23/2020 FINDINGS: Chest port on the right stable. Heart unchanged. There is likely infiltrate at the left lung base. Tiny adjacent effusion noted. Remaining lungs demonstrate chronic findings. No pneumothorax. IMPRESSION: 1. Suspected left base infiltrate and adjacent small effusion. Follow-up recommended to assure complete resolution. 2. Not mentioned in the body of the report there is a possible prominent lymph node in the right perihilar region which should be reevaluated at follow-up. Dictated by: Dictated on workstation # [id number]
[2022-07-11] MEDS ORDERED: PIPERACILLIN SODIUM/TAZOBACTAM 4.5 GM in NS (IVPB) 100 ML IV ONE (08:00)
[2022-07-11] MEDS ORDERED: NS IV 1000 ML 1,000 ML IV ONE (08:00)
[2022-07-11 08:17] LABS: BAND NEUTROPHILS 25 %; BASOPHILS % (MANUAL) 0 %; EOSINOPHILS % (MANUAL) 0 %; LYMPHOCYTES % (MANUAL) 4 %; MONOCYTES % (MANUAL) 1 %; NEUTROPHILS % (MANUAL) 70 %
[2022-07-11 08:18] LABS: RBC MORPH NORMAL
[2022-07-11] MEDS ORDERED: methylPREDNISolone 125 MG (Solu-MEDROL) VIAL IVP ONE (08:30)
--- NOTE | 2022-07-11 08:40 | History & Physical-Hospitalist ---
History of Present Illness HPI/Chief Complaint Chief complaint: Pneumonia with severe sepsis HPI: This is a 72-year-old female with COPD who presented to the ER with shortness of breath found to have O2 sat of 74% she was found to have pneumonia. BiPAP dependent precludes any other details. Patient will be placed in the ICU maintain on BiPAP with IV fluids and IV antibiotics and consulting Dr. Diane. Source: patient Exam Limitations: clinical condition Date Seen 07/11/22 Time Seen by a Provider: 11:00 Attending Physician [facility] PCP Admitting Physician: Attending Physician: Referring Physician Date of Admission Home Medications & Allergies Home Medications Reviewed patient Home Medication Reconciliation performed by pharmacy medication reconciliations mixing technician and/or nursing. Patients Allergies have been reviewed. Allergies Allergies Coded Allergies ceftriaxone (Verified Allergy, Severe, DIFFICULTY BREATING, 07/05/19) levofloxacin (Verified Allergy, Severe, C-DIFF, 07/05/19) Past Xmuqebc-Hsygaw-Ljfpfs Hx Patient Social History Marrital Status: single Employed/Student: retired Tobacco Use?: No Smoking Status: Former Smoker Substance use?: No Alcohol Use?: No Immunizations Up To Date Date of Influenza Vaccine: Apr 12, 2021 First/Initial COVID19 Vaccinat: NO Second COVID19 Vaccination Estevan: NO Tetanus Booster (TDap): Unknown Hepatitis A: No Hepatitis B: No PED Vaccines UTD: Yes Date of Pneumonia Vaccine: Jun 15, 2019 Seasonal Allergies Seasonal Allergies: Yes Current Status Primary Language: [place] Preferred Spoken Language: [place] Past Medical History Surgeries: Abdominal, Amputation, Cardiac, Joint Replacement, Orthopedic, Vascular Surgery Pneumonia, Chronic Bronchitis, Pulmonary Embolism, COPD, Emphysema Currently Using CPAP: No Currently Using BIPAP: No Atrial Fibrillation, Chronic Edema/Swelling, Deep Vein Thrombosis, High Cholesterol, Hypertension, Irregular Heartbeat, Peripheral Vascular Dementia, Stroke CSR RETAIL History: Menopausal Sexually Transmitted Disease: No HIV/AIDS: No Gastroesophageal Reflux, Pancreatitis, C-Diff, Hiatal Hernia, Ulcer Amputee, Arthritis, Rheumatoid Arthritis Diabetes, Non-Insulin dep Dysphagia, Tinnitis Loss of Vision: Bilateral Hearing Impairment: Denies Skin, Oral Did You Recieve Any Treatments: Yes What Type of Treatment Did You: Chemotherapy, Radiation, Surgical Intervention Sleep Difficulties, Anxiety, Depression Blood Disorders: No Adverse Reaction/Blood Tranf: No (N/A) Past Medical History 1. ASOD - history of bilateral stents BLE Dr. Sevilla, redo stenting Dr. Engel Lt. SFA 02/23 2. Pancreatitis 2003 3. Hyperlipidemia 4. Chronic obstructive pulmonary disease 5. RA previously evaluated by Dr. Javier 6. History of skin cancer of the face 7. Dry Gangrene Lt. Foot s/p amputation 8. "Spider Bite" with wound Left shoulder with tissue 9 DJD 10. Insomnia 11. Stroke with dysarthria and right sided weakness 12. Mild Dementia 13. hypertension 14. 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 Hip Replacement 2003 2. BLE Stents RT. 2003, Lt. 2012 x3 by Di (on coumadin for short period post stent) stopped by Di 3. Otolaryngologic surgery for CA bridge of nose and inner canthus of rt. eye 2009 4. Athrectomy with Lt. SFA stent Toro 02/23 5. Rt. SFA, popliteal and anterior tibial arthrectomy Toro 03/26 6. Left forefoot amputation-Reveal 7. PEG tube placement Family Medical History Reviewed Nursing Family Hx Cancer 09 SISTER Family history: Arthritis 09 BROTHER 09 SISTER Family history: Cardiovascular disease 09 SISTER Family history: Thyroid disorder 09 SISTER Malignant neoplasm of lung 09 SISTER Heart Disease PSH: -EGD'S/PEG TUBES -LAST ONE 06/2019 -LEFT FOREFOOT AMPUTATION DUE TO GANGRENE 2013 -CARDIAC CATHS AND PERIPHERAL CATHS--ANGIOPLASTY AND STENTS LEFT SFA AND COMMON ILIAC 05/2013; AND REPEAT INTERVENTION AND STENTING 02/2014; BILATERAL ILIAC STENTS; ATHERECTOMY AND ANGIOPLASTY OF R SFA, POPLITEAL AND ANTERIOR TIBITAL ARTERIES 03/2014 -PORT RIGHT CHEST -PERIPHERAL ARTERY STENTS AND ANGIOPLASTY -CARDIAC ABLATION 01/2018 FOR AVNRT/AFIB-FLUTTER -RIGHT KNEE REPLACEMENT-12/2016 -RIGHT TOTAL HIP REPLACEMENT 2003 -DEBRIDEMENT OF LEFT SHOULDER DUE TO SPIDER BITE 2014 -LOOP RECORDER 04/06/2018 Review of Systems Constitutional: see HPI Physical Exam Physical Exam Vital Signs Vital Signs - First Documented 07/11/22 07/11/22 07/11/22 06:55 07:07 09:15 Temp 35.8 Pulse 106 Resp 20 B/P (MAP) 131/77 (95) Pulse Ox 78 O2 Delivery Room Air O2 Flow Rate 10.00 FiO2 70 Capillary Refill : Less Than 3 Seconds Height, Weight, BMI Height: 5'2.00" Weight: 180lbs. 0.0oz. [id number]; 25.00 BMI Method:Actual General Appearance: Anxious, Chronically ill, Mild Distress Respiratory: Accessory Muscle Use, Crackles, Decreased Breath Sounds, Wheezing Cardiovascular: Regular Rate, Rhythm Neurologic/Psychiatric: Alert, Oriented x3, No Motor/Sensory Deficits, Normal Mood/Affect Results Results/Procedures Labs Laboratory Tests 07/11/22 07:06 Patient resulted labs reviewed. Assessment/Plan Admission Diagnosis Assessment: Acute hypoxic respiratory failure Pneumonia Sepsis Elevated D-dimer placed on Lovenox therapeutic dose until stable enough to do CT angiogram Former smoker Plan: BiPAP IV antibiotics High risk for intubation Lovenox Admission Status: Inpatient Order (span 2 midnights) Reason for Inpatient Admission: Respiratory failure Diagnosis/Problems Diagnosis/Problems (1) Respiratory failure with hypoxia Status: Acute Qualifiers: Chronicity: acute Qualified Codes: J96.01 - Acute respiratory failure with hypoxia (2) Left lower lobe pneumonia Status: Acute Qualifiers: Pneumonia type: due to unspecified organism Qualified Codes: J18.9 - Pneumonia, unspecified organism VENESSA AYALA DO Jul 11, 2022 08:40
[2022-07-11] MEDS ORDERED: ONDANSETRON 4 MG/2 ML (SDV) Z0FRAN IV PRN (09:30)
[2022-07-11] MEDS ORDERED: BISACODYL 10 MG SUPP (DULCOLAX) PR PRN (09:30)
[2022-07-11] MEDS ORDERED: diphenhydrAMINE 50 MG/ML INJ (BENADRYL) IVP PRN (09:30)
[2022-07-11] MEDS ORDERED: LORazepam 0.5 MG (ATIVAN) TABLET PO PRN (09:30)
[2022-07-11] MEDS ORDERED: BENZONATATE 100 MG (TESSALON) CAPSULE PO PRN (09:30)
[2022-07-11] MEDS ORDERED: diphenhydrAMINE 25 MG TAB (BENADRYL) PO PRN (09:30)
[2022-07-11] MEDS ORDERED: MELATONIN 3 MG TABLET PO PRN (09:30)
[2022-07-11] MEDS ORDERED: LORazepam INJ 2 MG/ML (ATIVAN) VIAL IVP PRN (09:30)
[2022-07-11] MEDS ORDERED: ANTACID SUSP 30 ML UDC (MYLANTA) PO PRN (09:30)
[2022-07-11] MEDS ORDERED: ACETAMINOPHEN 325 MG TABLET PO PRN (09:30)
[2022-07-11] MEDS ORDERED: ENOXAPARIN 40 MG/0.4 ML (LOVENOX) SYR SC SCH (09:30)
[2022-07-11] MEDS ORDERED: MILK OF MAGNESIA 400 MG/5 ML 30 ML UDC PO PRN (09:30)
[2022-07-11] MEDS ORDERED: polyethylene glycoL POWDER 17 GM (MIRALAX) PACK PO PRN (09:30)
[2022-07-11] MEDS ORDERED: NS IV 500 ML 500 ML IV PRN (09:30)
[2022-07-11] MEDS ORDERED: LACTULOSE SYRUP 10GM/15ML (ENULOSE) 30ML UDC PO PRN (09:30)
[2022-07-11] MEDS ORDERED: ONDANSETRON 4 MG (ZOFRAN) ORAL DISSOLVE TAB PO PRN (09:30)
[2022-07-11] MEDS ORDERED: CALCIUM CARBONATE 500 MG (TUMS) TAB.CHEW PO PRN (09:30)
[2022-07-11 09:33] LABS: ABG BASE EXCESS -3.6 MMOL/L (-2.5-2.5); ABG OXYGEN SATURATION 99 % (94-100); ABG PCO2 39 MMHG (35-45); ABG PH 7.35 (7.37-7.43); ABG PO2 103 MMHG (79-93); ABG TCO2 22.6 MMOL/L (21.0-31.0)
[2022-07-11 09:34] LABS: ALLENS TEST YES-POS; INSPIRED O2 70%; VENTILATOR NO
[2022-07-11 09:35] LABS: PATIENT TEMP 35.3
[2022-07-11 09:45] VITALS: BP 94/67
[2022-07-11] MEDS: NS IV 1000 ML 1,000 ML IV SCH ×2 (09:46→17:44)
[2022-07-11 09:54] LABS: BILIRUBIN,URINE NEGATIVE (NEGATIVE); CLARITY,URINE CLEAR; COLOR,URINE YELLOW; GLUCOSE, URINE (UA) NEGATIVE (NEGATIVE); KETONES,URINE NEGATIVE (NEGATIVE); LEUKOCYTE ESTERASE ,URINE NEGATIVE (NEGATIVE); NITRITE,URINE NEGATIVE (NEGATIVE); PROTEIN,URINE NEGATIVE (NEGATIVE)
[2022-07-11] MEDS ORDERED: RT-ALBUTEROL/IPRATROPIUM 3 ML (DUONEB) VIAL INH PRN (10:00)
[2022-07-11 10:09] LABS: BACTERIA,URINE MODERATE /HPF; WBC,URINE 0-2 /HPF
[2022-07-11 10:10] LABS: AMORPHOUS SEDIMENT,UR RARE AMOR URATES /LPF
[2022-07-11] MEDS: inSUlin ASPART (NovoLOG) 1 UNIT/0.01 ML (CHARGE PER UNIT) SC SCH ×3 (11:00→20:52)
[2022-07-11] MEDS: methylPREDNISolone 40 MG/ML (Solu-MEDROL) VIAL IV SCH ×3 (11:14→23:30)
--- NOTE | 2022-07-11 11:25 | Consultation-Cardiology ---
HPI-Cardiology Cardiology Consultation Date of Consultation 07/11/22 Date of Admission Time Seen by Provider: 11:20 Indication: Acute respiratory failure HPI 72-year-old lady with a history of tachycardia, she started to have increasing shortness of breath, fatigue, loss of energy. She was brought by her son to the emergency room. Having difficulty swallowing due to significant throat pain. No chest pain. Was noted to have leukocytosis, pneumonia and respiratory failure. Currently maintained on BiPAP. Unable to provide full history, history was obtained by visiting with her and reviewing her record. Home Medications & Allergies Allergies: Coded Allergies: ceftriaxone (Verified Allergy, Severe, DIFFICULTY BREATING, 07/05/19) levofloxacin (Verified Allergy, Severe, C-DIFF, 07/05/19) Home Medication List Reviewed: Yes MYE-Iaanea-Serqrd Hx Patient Social History Smoking Status: Former Smoker Former smoker/When Quit: Feb 16, 2014 Type Used: Cigarettes 2nd Hand Smoke Exposure: No Recent Hopitalizations: No Have you traveled recently?: No Alcohol Use?: No Immunizations Up To Date Tetanus Booster (TDap): Unknown Date of Pneumonia Vaccine: Jun 15, 2019 Date of Influenza Vaccine: Jun 12, 2022 Past Medical History Discussed below Family Medical History Significant Family History: Heart Disease Family History: Cancer 09 SISTER Family history: Arthritis 09 BROTHER 09 SISTER Family history: Cardiovascular disease 09 SISTER Family history: Thyroid disorder 09 SISTER Malignant neoplasm of lung 09 SISTER Review of Systems-General Review of Systems Constitutional: No chills; fever, weakness EENTM: nose congestion, throat pain Respiratory: see HPI, cough, short of breath Cardiovascular: see HPI; No chest pain, No edema, No Hx of Intervention, No palpitations, No syncope, No vascular heart diseas, No other Gastrointestinal: No nausea, No vomiting Genitourinary: see HPI, decreased output, dysuria Musculoskeletal: see HPI; No back pain; muscle pain, neck pain Skin: see HPI; No change in color, No lesions Psychiatric/Neurological: See HPI; Denies Headache; Weakness All Other Systems Reviewed Negative Unless Noted: Yes Reviewed Test Results Reviewed Test Results Lab Laboratory Tests Test 07/11/22 07:06 07/11/22 09:25 07/11/22 09:34 07/11/22 10:57 Range/Units White Blood Count 30.7 *H 4.3-11.0 10^3/uL Red Blood Count 3.99 3.80-5.11 10^6/uL Hemoglobin 12.5 11.5-16.0 g/dL Hematocrit 38 35-52 % Mean Corpuscular Volume 95 80-99 fL Mean Corpuscular Hemoglobin 31 25-34 pg Mean Corpuscular Hemoglobin Concent 33 32-36 g/dL Red Cell Distribution Width 13.1 10.0-14.5 % Platelet Count 361 130-400 10^3/uL Mean Platelet Volume 9.2 9.0-12.2 fL Immature Granulocyte % (Auto) 2 % Neutrophils (%) (Auto) 92 H 42-75 % Lymphocytes (%) (Auto) 4 L 12-44 % Monocytes (%) (Auto) 3 0-12 % Eosinophils (%) (Auto) 0 0-10 % Basophils (%) (Auto) 0 0-10 % Neutrophils # (Auto) 28.1 H 1.8-7.8 10^3/uL Lymphocytes # (Auto) 1.2 1.0-4.0 10^3/uL Monocytes # (Auto) 0.9 0.0-1.0 10^3/uL Eosinophils # (Auto) 0.0 0.0-0.3 10^3/uL Basophils # (Auto) 0.1 0.0-0.1 10^3/uL Immature Granulocyte # (Auto) 0.5 H 0.0-0.1 10^3/uL Neutrophils % (Manual) 70 % Lymphocytes % (Manual) 4 % Monocytes % (Manual) 1 % Eosinophils % (Manual) 0 % Basophils % (Manual) 0 % Band Neutrophils 25 % Blood Morphology Comment NORMAL Prothrombin Time 14.6 12.2-14.7 SEC INR Comment 1.1 0.8-1.4 Activated Partial Thromboplast Time 37 H 24-35 SEC D-Dimer 2.13 H 0.00-0.49 UG/ML Sodium Level 137 135-145 MMOL/L Potassium Level 4.1 3.6-5.0 MMOL/L Chloride Level 104 98-107 MMOL/L Carbon Dioxide Level 23 21-32 MMOL/L Anion Gap 10 5-14 MMOL/L Blood Urea Nitrogen 17 7-18 MG/DL Creatinine 0.94 0.60-1.30 MG/DL Estimat Glomerular Filtration Rate 64 BUN/Creatinine Ratio 18 Glucose Level 172 H 70-105 MG/DL Lactic Acid Level 2.63 *H 0.50-2.00 MMOL/L Calcium Level 9.7 8.5-10.1 MG/DL Corrected Calcium 10.1 8.5-10.1 MG/DL Total Bilirubin 1.1 H 0.1-1.0 MG/DL Aspartate Amino Transf (AST/SGOT) 50 H 5-34 U/L Alanine Aminotransferase (ALT/SGPT) 93 H 0-55 U/L Alkaline Phosphatase 175 H 40-136 U/L Troponin I < 0.028 <0.028 NG/ML C-Reactive Protein High Sensitivity 12.69 H 0.00-0.50 MG/DL B-Type Natriuretic Peptide 385.7 H <100.0 PG/ML Total Protein 7.9 6.4-8.2 GM/DL Albumin 3.5 3.2-4.5 GM/DL Procalcitonin 4.39 H <0.10 NG/ML Influenza Type A (RT-PCR) Not Detected Not Detecte Influenza Type B (RT-PCR) Not Detected Not Detecte SARS-CoV-2 RNA (RT-PCR) Not Detected Not Detecte Blood Gas Puncture Site L RAD Blood Gas Patient Temperature 35.3 Arterial Blood pH 7.35 L 7.37-7.43 Arterial Blood Partial Pressure CO2 39 35-45 MMHG Arterial Blood Partial Pressure O2 103 H 79-93 MMHG Arterial Blood HCO3 21 L 23-27 MMOL/L Arterial Blood Total CO2 22.6 21.0-31.0 MMOL/L Arterial Blood Oxygen Saturation 99 94-100 % Arterial Blood Base Excess -3.6 L -2.5-2.5 MMOL/L Jerry Test YES-POS Blood Gas Ventilator Setting NO Blood Gas Inspired Oxygen 70% Urine Color YELLOW Urine Clarity CLEAR Urine pH 6.0 5-9 Urine Specific [place] 1.025 H 1.016-1.022 Urine Protein NEGATIVE NEGATIVE Urine Glucose (UA) NEGATIVE NEGATIVE Urine Ketones NEGATIVE NEGATIVE Urine Nitrite NEGATIVE NEGATIVE Urine Bilirubin NEGATIVE NEGATIVE Urine Urobilinogen 0.2 < = 1.0 MG/DL Urine Leukocyte Esterase NEGATIVE NEGATIVE Urine RBC (Auto) NEGATIVE NEGATIVE Urine RBC NONE /HPF Urine WBC 0-2 /HPF Urine Squamous Epithelial Cells 10-25 H /HPF Urine Crystals PRESENT H /LPF Urine Amorphous Sediment RARE THANH URATES H /LPF Urine Bacteria MODERATE H /HPF Urine Casts NONE /LPF Urine Mucus NEGATIVE /LPF Urine Culture Indicated YES Glucometer 139 H 70-110 MG/DL Physical Exam Physical Exam Vital Signs Vital Signs - First Documented 07/11/22 07/11/22 07/11/22 06:55 07:07 09:15 Temp 35.8 Pulse 106 Resp 20 B/P (MAP) 131/77 (95) Pulse Ox 78 O2 Delivery Room Air O2 Flow Rate 10.00 FiO2 70 Capillary Refill : Less Than 3 Seconds Height, Weight, BMI Height: 5'2.00" Weight: 180lbs. 0.0oz. 81.727390qt; 25.00 BMI Method:Actual General Appearance: Moderate Distress, Thin Eyes: Bilateral Eye Normal Inspection, Bilateral Eye PERRL, Bilateral Eye EOMI HEENT: PERRL/EOMI, Pharyngeal Erythema, Other (Gurgling and sputum noted poste rior that reaccumulate's after suctioning.) Neck: Non Tender, Supple Respiratory: Crackles (Throughout), Expiration, Inspiration, Respiratory Distress (Mild) Cardiovascular: No Murmur, Tachycardia Gastrointestinal: Non Tender, Soft Back: Normal Inspection, No CVA Tenderness, No Vertebral Tenderness Extremity: Normal Range of Motion, Non Tender Neurologic/Psychiatric: Alert, Oriented x3 Skin: Normal Color, Warm/Dry Lymphatic: No Adenopathy A/P-Cardiology Admission Diagnosis Pneumonia Acute respiratory failure Generalized weakness Debility Assessment/Plan Pneumonia, acute respiratory failure Admitted and started on BiPAP, receiving antibiotic Managed by primary care team Generalized weakness, lethargy. Probably secondary to respiratory failure. 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 Has had ILR since 04/06/18 at the recommendation of Dr Ruiz. No atrial flutter/fib or other arrhythmia has been documented H/o nonspecific chest discomfort. MPI of 05/30/16 showed non ischemia or infarction and LVEF 76% History of pulmonary embolism in August 2019, was started on Eliquis. 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 Chronically occluded L ICA; mild R ICA disease Echocardiogram of Aug 2018 showed normal global LV systolic function with an ejection fraction of approx 60-65%. Mild TR. PASP estimated to be 25-30mmHg COPD Rheumatoid and degenerative arthritis Chronic tobacco use - quit in 2014 PAD with history of ballooning and stent in of L SFA and common iliac in May [address] Sevilla and repeat intervention and stenting to the same artery by Dr Engel in Feb 2014. At the time of the angio by Dr Engel in Feb 2014, pt was also found to have patent bilat iliac stents. In Mar 2014 she underwent atherectomy and angioplasty of R sup fem, pop and ant tibial arteries by Dr Engel. Currently, her PAD is being followed by Dr Hewitt (Summer Nair) H/o borderline diabetes Surgeries:S/p R TKR in December 2016 (Dr Flores). 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 S/P debridement of left shoulder d/t spider bite (Jul 2014) DION QUINTANILLA MD Jul 11, 2022 11:24
--- NOTE | 2022-07-11 14:30 | Tele-ICU Consult ---
History of Present Illness History of Present Illness Date Seen by Provider: Jul 11, 2022 Time Seen by Provider: 14:27 Reason for Visit: Acute respiratory failure History of Present Illness (Tele-ICU Physician , consultation) Available chart/ vitals / labs / Images reviewed H&P is from ER notes Patient's information available about PMH, allergy reviewed in EMR. ROS as per chart and RN report Video assessment done using teleICU camera, rest of exam as per RN Discussed with RN. She is a 72-year-old female with past medical history of throat cancer for which she received radiation therapy and chemotherapy presented to the emergency room with a complaint of gurgling breathing for 2 days and she thinks she had a fever last night. Reportedly she has not vaccinated for COVID or influenza. In the emergency room she is found to be hypoxic requiring BiPAP ventilation. Also blood pressure is slightly on the low side requiring fluid bolus. She has severe leukocytosis. She is admitted to the intensive care unit with a suspected fever with septic shock and placed on a BiPAP ventilation. A detailed history could not be obtained as she is on the BiPAP ventilation. Impression 1. Acute hypoxic respiratory failure in a patient who received a chemotherapy and radiation therapy. 2. Left lower lobe pneumonia 3. History of throat cancer status post chemoradiation therapy 4. Slightly elevated liver enzymes could be due to sepsis however other etiologies not ruled out. 5. Hx of dvt on Eliquis Recommendations 1. Continue hydration with normal saline 2. Broad-spectrum antibiotics per primary care physician 3. DVT prophylaxis and ulcer prophylaxis 4. Continue monitor electrolytes and white count. 5. Wean BiPAP as tolerated. Plans as per bedside consultants and IM MDs. Allergies and Home Medications Allergies Coded Allergies: ceftriaxone (Verified Allergy, Severe, DIFFICULTY BREATING, 07/05/19) levofloxacin (Verified Allergy, Severe, C-DIFF, 07/05/19) Home Medications Albuterol Sulfate 2.5 Mg/3 Ml Vial.neb, 2.5 MG NEB Q6H PRN for SHORTNESS OF SHANELL TH, (Reported) Albuterol Sulfate 1 Puff Puff, 2 PUFF IH Q4H PRN for DYSPEPSIA, (Reported) 1 PUFF = 90 MCG Apixaban 5 Mg Tablet, 5 MG PO BID, (Reported) Aspirin 81 Mg Tab.chew, 81 MG PO DAILY, (Reported) Budesonide/Glycopyr/Formoterol 10.7 Gm Hfa.aer.ad, 10.7 GM IH BID, (Reported) Cholecalciferol (Vitamin D3) 125 Mcg Capsule, 125 MCG PO DAILY, (Reported) Duloxetine HCl 60 Mg Capsule.dr, 60 MG PO DAILY, (Reported) Eszopiclone 2 Mg Tablet, 2 MG PO DAILY, (Reported) Etanercept 50 Mg/1 Ml Pen.injctr, 50 MG SQ WEEK, (Reported) Gabapentin 400 Mg Capsule, 300 MG PO TID, (Reported) Hydrocodone/Acetaminophen 1 Each Tablet, 1 TAB PO BID, (Reported) Melatonin 10 Mg Tablet.er, 20 MG PO HS, (Reported) Montelukast Sodium 5 Mg Tab.chew, 10 MG PEG HS, (Reported) TAKES 2 (5MG) TABLETS Omeprazole 20 Mg Capsule.dr, 20 MG PO UD, (Reported) Pravastatin Sodium 40 Mg Tablet, 40 MG PO DAILY, (Reported) Tiotropium [place] 4 Gm Mist.inhal, 1 PUFF INH BID, (Reported) Past Medical/Social/Family Hx Patient Social History Tobacco Use?: No Smoking Status: Former Smoker Use of E-Cig and/or Vaping dev: No Substance use?: No Alcohol Use?: No Pt stated abuse/neglect: No Immunizations Up To Date Influenza Vaccine Up-to-Date: Yes; Up-to-Date First/Initial COVID19 Vaccinat: NO Second COVID19 Vaccination [place]: NO Tetanus Booster (TDap): Unknown Hepatitis A: No Hepatitis B: No TB Skin Test: None Date of Pneumonia Vaccine: Jun 15, 2019 Current Status status: No Advance Directives: No Communicates: Verbally Primary Language: Canadian Preferred Spoken Language: Canadian Is interpretation needed?: No Sensory deficits: Vision impairment, Speech impairment Implanted or Applied Medical D: Orthopedic hardware, Stents Past Medical History Past Medical History 1. ASOD - history of bilateral stents BLE Dr. Sevilla, redo stenting Dr. Engel Lt. SFA 02/23 2. Pancreatitis 2003 3. Hyperlipidemia 4. Chronic obstructive pulmonary disease 5. RA previously evaluated by Dr. Javier 6. History of skin cancer of the face 7. Dry Gangrene Lt. Foot s/p amputation 8. "Spider Bite" with wound Left shoulder with tissue 9 DJD 10. Insomnia 11. Stroke with dysarthria and right sided weakness 12. Mild Dementia 13. hypertension 14. 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 Hip Replacement 2003 2. BLE Stents RT. 2003, Lt. 2012 x3 by Sevilla (on coumadin for short period post stent) stopped by Sevilla 3. Otolaryngologic surgery for CA bridge of nose and inner canthus of rt. eye 2009 4. Athrectomy with Lt. SFA stent Toro 02/23 5. Rt. SFA, popliteal and anterior tibial arthrectomy Toro 03/26 6. Left forefoot amputation-Reveal 7. PEG tube placement Family Medical History Family Hx: PSH: -EGD'S/PEG TUBES -LAST ONE 06/2019 -LEFT FOREFOOT AMPUTATION DUE TO GANGRENE 2013 -CARDIAC CATHS AND PERIPHERAL CATHS--ANGIOPLASTY AND STENTS LEFT SFA AND COMMON ILIAC 05/2013; AND REPEAT INTERVENTION AND STENTING 02/2014; BILATERAL ILIAC STENTS; ATHERECTOMY AND ANGIOPLASTY OF R SFA, POPLITEAL AND ANTERIOR TIBITAL ARTERIES 03/2014 -PORT RIGHT CHEST -PERIPHERAL ARTERY STENTS AND ANGIOPLASTY -CARDIAC ABLATION 01/2018 FOR AVNRT/AFIB-FLUTTER -RIGHT KNEE REPLACEMENT-12/2016 -RIGHT TOTAL HIP REPLACEMENT 2003 -DEBRIDEMENT OF LEFT SHOULDER DUE TO SPIDER BITE 2014 -LOOP RECORDER 04/06/2018 Review of Systems Constitutional: see HPI Other ROS PER RN Focused Exam Lactate Level 07/11/22 07:06: Lactic Acid Level 2.63*H Height, Weight, BMI Height: 5'2.00" Weight: 180lbs. 0.0oz. 81.018350ys; 25.08 BMI Method:Actual Exam Exam Patient acknowledged, consented, and participated in this virtual visit which was conducted using real time audio/video Vital Signs Date Time Temp Pulse Resp B/P (MAP) Pulse Ox O2 Delivery O2 Flow Rate FiO2 07/11/22 14:00 99 21 117/61 (79) 96 Vapotherm 30.00 70.00 07/11/22 13:20 95 Vapotherm 30.00 70 07/11/22 13:17 Vapotherm 30.00 70.00 07/11/22 13:00 93 07/11/22 13:00 91 23 134/72 (92) 99 NIV Bilevel 70.00 07/11/22 12:00 90 23 133/59 (83) 99 NIV Bilevel 70.00 07/11/22 12:00 95 NIV Bilevel 30.00 07/11/22 12:00 36.1 07/11/22 11:00 92 20 118/65 (82) 99 NIV Bilevel 70.00 07/11/22 10:00 93 16 103/68 (80) 97 NIV Bilevel 70.00 07/11/22 09:45 35.3 93 97 07/11/22 09:33 93 07/11/22 09:31 94 35 97 70.00 07/11/22 09:29 35.3 94 24 94/67 (76) 100 NIV Bilevel 70.00 07/11/22 09:15 92 111/55 100 NIV Bilevel 07/11/22 09:15 100 NIV Bilevel 70 07/11/22 07:26 105 38 94 100.00 07/11/22 07:07 OxyMask 10.00 07/11/22 06:55 35.8 106 20 131/77 (95) 78 Room Air Height & Weight Height: 5'2.00" Weight: 180lbs. 0.0oz. 81.941413mb; 25.08 BMI Method:Actual General Appearance: Moderate Distress, Thin HEENT: PERRL/EOMI, Pharyngeal Erythema, Other Neck: Non Tender, Supple Respiratory: Crackles, Expiration, Inspiration, Respiratory Distress Cardiovascular: No Murmur, Tachycardia Capillary Refill: Less Than 3 Seconds Extremity: Normal Range of Motion, Non Tender Neurologic/Psychiatric: Alert, Oriented x3 Skin: Normal Color, Warm/Dry Lymphatic: No Adenopathy Results Lab Laboratory Tests 07/11/22 07:06 Assessment/Plan Assessment/Plan ABOVE Critical Care: Critically Ill Patient Time spent with patient (mins): 35 PATRICIA MILLER MD Jul 11, 2022 14:30
[2022-07-11] MEDS: RT-ALBUTEROL/IPRATROPIUM 3 ML (DUONEB) VIAL INH SCH ×3 (14:37→21:48)
[2022-07-11] MEDS: PIPERACILLIN SODIUM/TAZOBACTAM 4.5 GM in NS (IVPB) 100 ML IV SCH ×2 (15:05→21:35)
[2022-07-11] MEDS: DexMEDEtomidine 250 ML DRIP 250 ML IV SCH (15:57)
[2022-07-11] MEDS ORDERED: MELA1TAB20 PO (16:12)
[2022-07-11] MEDS ORDERED: ESZO3TAB30 PO (16:12)
[2022-07-11] MEDS ORDERED: ROFL500T9 PO (16:12)
[2022-07-11] MEDS ORDERED: IRON PO (16:13)
[2022-07-11] MEDS ORDERED: MELA10TA2 PO (16:17)
[2022-07-11] MEDS ORDERED: NS IV 1000 ML 500 ML IV SCH (18:00)
[2022-07-11] MEDS: MONTELUKAST 10 MG (SINGULAIR) TAB PO SCH (20:52)
[2022-07-11] MEDS: DOCUSATE SODIUM 100 MG (COLACE) CAP PO SCH (20:53)
[2022-07-11] MEDS: SENNOSIDES 8.6 MG (SENOKOT) TAB PO SCH (20:53)
[2022-07-11] MEDS: ENOXAPARIN 80 MG/0.8 ML (LOVENOX) SYR SC SCH (21:36)
[2022-07-11] MEDS: RT--FLUTICASONE/SALMETEROL 113-14 (AIRDUO RespiCLICK) IH SCH (21:50)
[2022-07-12] MEDS: NS IV 1000 ML 1,000 ML IV SCH ×4 (01:41→21:33)
[2022-07-12] MEDS: RT-ALBUTEROL/IPRATROPIUM 3 ML (DUONEB) VIAL INH SCH ×6 (02:37→21:53)
[2022-07-12 03:39] LABS: BASOPHILS # (AUTO) 0.1 10^3/uL (0.0-0.1); BASOPHILS % (AUTO) 0 % (0-10); EOSINOPHILS % (AUTO) 0 % (0-10); HEMATOCRIT 33 % (35-52); HEMOGLOBIN 10.9 g/dL (11.5-16.0); LYMPHOCYTES # (AUTO) 1.1 10^3/uL (1.0-4.0); LYMPHOCYTES % (AUTO) 5 % (12-44); MEAN CORPUSCULAR HEMOGLOBIN 32 pg (25-34); MEAN CORPUSCULAR HGB CONC 33 g/dL (32-36); MEAN CORPUSCULAR VOLUME 97 fL (80-99); MEAN PLATELET VOLUME 9.6 fL (9.0-12.2); MONOCYTES # (AUTO) 0.7 10^3/uL (0.0-1.0); MONOCYTES % (AUTO) 3 % (0-12); NEUTROPHILS # (AUTO) 20.7 10^3/uL (1.8-7.8); NEUTROPHILS % (AUTO) 85 % (42-75); PLATELET COUNT 286 10^3/uL (130-400); WHITE BLOOD COUNT 24.3 10^3/uL (4.3-11.0)
[2022-07-12 03:43] LABS: SMEAR SCAN COMMENT YES
[2022-07-12 03:54] LABS: ALBUMIN 2.8 GM/DL (3.2-4.5); POTASSIUM 3.5 MMOL/L (3.6-5.0)
[2022-07-12 03:56] LABS: CALCIUM 8.5 MG/DL (8.5-10.1)
[2022-07-12 03:57] LABS: TOTAL PROTEIN 6.5 GM/DL (6.4-8.2)
[2022-07-12 03:58] LABS: BILIRUBIN,TOTAL 0.7 MG/DL (0.1-1.0)
[2022-07-12 04:00] LABS: CREATININE SERUM 0.75 MG/DL (0.60-1.30); PHOSPHORUS 2.1 MG/DL (2.3-4.7)
[2022-07-12 04:01] LABS: ABG BASE EXCESS -3.2 MMOL/L (-2.5-2.5); ABG OXYGEN SATURATION 100 % (94-100); ABG PCO2 39 MMHG (35-45); ABG PH 7.36 (7.37-7.43); ABG PO2 182 MMHG (79-93); ABG TCO2 22.7 MMOL/L (21.0-31.0)
[2022-07-12 04:02] LABS: ALLENS TEST YES-POS
[2022-07-12 04:03] LABS: PATIENT TEMP 36.4; VENTILATOR NO
[2022-07-12 04:03] LABS: MAGNESIUM 1.8 MG/DL (1.6-2.4)
[2022-07-12] MEDS: MAGNESIUM 1 GM/100 ML IVPB 100 ML IV SCH (04:22)
[2022-07-12] MEDS: POTASSIUM CL 10MEQ/50ML IVPB 50 ML IV SCH ×3 (04:22→05:37)
[2022-07-12] MEDS: KCL 20 MEQ TAB (K-DUR) PO SCH (04:23)
--- NOTE | 2022-07-12 05:15 | Progress Note - Hospitalist ---
Subjective HPI/CC On Admission Date Seen by Provider: Jul 12, 2022 Time Seen by Provider: 05:00 Chief complaint: Pneumonia with severe sepsis HPI: This is a 72-year-old female with COPD who presented to the ER with shortne ss of breath found to have O2 sat of 74% she was found to have pneumonia. BiPAP dependent precludes any other details. Patient will be placed in the ICU maintain on BiPAP with IV fluids and IV antibiotics and consulting Dr. Diane. Subjective/Events-last exam Patient maintained on on and off Reviewed meds and labs Nurse has no concerns Vapotherm working pretty well Previous BiPAP Focused Exam Lactate Level 07/11/22 07:06: Lactic Acid Level 2.63*H 07/11/22 17:00: Lactic Acid Level 2.82*H 07/11/22 19:13: Lactic Acid Level 1.70 Objective Exam Vital Signs Vital Signs Date Time Temp Pulse Resp B/P (MAP) Pulse Ox O2 Delivery O2 Flow Rate FiO2 07/12/22 08:00 97 21 145/70 (95) 97 Vapotherm 20.00 60.00 07/12/22 07:59 36.5 07/12/22 07:05 60 Capillary Refill : Less Than 3 Seconds General Appearance: Chronically ill, Other (Asleep) Respiratory: Decreased Breath Sounds, Wheezing Cardiovascular: Regular Rate, Rhythm Results/Procedures Lab Laboratory Tests 07/12/22 03:25 Patient resulted labs reviewed. Assessment/Plan Assessment and Plan Assess & Plan/Chief Complaint Assessment: Acute hypoxic respiratory failure maintain on Vapotherm now status post BiPAP Pneumonia Sepsis Elevated D-dimer placed on Lovenox therapeutic dose until stable enough to do CT angiogram Former smoker Volume overload? Plan: BiPAP and Vapotherm IV antibiotics High risk for intubation Lovenox Cardiology appreciated Critical Care Critically Ill Patient Diagnosis/Problems Diagnosis/Problems (1) Respiratory failure with hypoxia Status: Acute Qualifiers: Chronicity: acute Qualified Codes: J96.01 - Acute respiratory failure with hypoxia (2) Left lower lobe pneumonia Status: Acute Qualifiers: Pneumonia type: due to unspecified organism Qualified Codes: J18.9 - Pneumonia, unspecified organism VENESSA AYALA DO Jul 12, 2022 05:15
[2022-07-12] MEDS: methylPREDNISolone 40 MG/ML (Solu-MEDROL) VIAL IV SCH ×4 (05:36→23:51)
[2022-07-12] MEDS: inSUlin ASPART (NovoLOG) 1 UNIT/0.01 ML (CHARGE PER UNIT) SC SCH ×4 (05:37→21:24)
[2022-07-12] MEDS: PIPERACILLIN SODIUM/TAZOBACTAM 4.5 GM in NS (IVPB) 100 ML IV SCH ×3 (05:37→21:32)
--- NOTE | 2022-07-12 06:13 | Diagnostic Imaging Report ---
INDICATION: Congestive heart failure. Comparison is made with prior examination of 07/11/2022. FINDINGS: There is cardiomegaly. There is some venous congestion. There are patchy bibasilar infiltrates. There is a loop recorder overlying the left hemithorax. There is no pneumothorax. The mediastinum is unremarkable. [id number] catheter has its tip in the superior vena cava. IMPRESSION: Patchy bibasilar infiltrates Cardiomegaly and some central pulmonary venous congestion. Dictated by: Dictated on workstation # [id number]
[2022-07-12] MEDS: RT--FLUTICASONE/SALMETEROL 113-14 (AIRDUO RespiCLICK) IH SCH ×2 (07:01→19:20)
[2022-07-12] MEDS: SENNOSIDES 8.6 MG (SENOKOT) TAB PO SCH ×2 (08:03→21:30)
[2022-07-12] MEDS: DOCUSATE SODIUM 100 MG (COLACE) CAP PO SCH ×2 (08:03→21:29)
[2022-07-12] MEDS: PANTOPRAZOLE 40 MG (PROTONIX) TAB PO SCH (08:25)
[2022-07-12] MEDS: ENOXAPARIN 80 MG/0.8 ML (LOVENOX) SYR SC SCH ×2 (08:25→21:32)
--- NOTE | 2022-07-12 10:27 | Cardiology Progress Note ---
Subjective Date Seen by Provider: Jul 12, 2022 Time Seen by Provider: 10:25 Subjective/Events-last exam Patient was seen at bedside, laying down comfortably, feeling better Maintained on Vapotherm Review of Systems General: No Chills, No Night Sweats; Fatigue; No Malaise, No Appetite, No Other HEENT: No Head Aches, No Visual Changes, No Eye Pain, No Ear Pain, No Dys phasia, No Sinus Congestion, No Post Nasal Drip, No Sore Throat, No Other Pulmonary: Dyspnea; No Cough, No Pleuritic Chest Pain, No Other Cardiovascular: No: Chest Pain, Palpitations, Orthopnea, Paroxysmal Noc. Dyspnea, Edema, Lt Headedness, Other Focused Exam Lactate Level 07/11/22 07:06: Lactic Acid Level 2.63*H 07/11/22 17:00: Lactic Acid Level 2.82*H 07/11/22 19:13: Lactic Acid Level 1.70 Objective-Cardiology Exam Last Set of Vital Signs Vital Signs 07/12/22 07/12/22 07/12/22 07:59 08:00 09:00 Temp 36.5 Pulse 96 Resp 25 B/P (MAP) 156/76 (102) Pulse Ox 97 O2 Delivery Vapotherm O2 Flow Rate 20.00 60.00 FiO2 60 I&O Intake and Output 07/12/22 00:00 Intake Total 2750 ml Output Total 350 ml Balance 2400 ml Intake Oral 50 ml IV Total 2700 ml Output Urine Total 350 ml # Bowel Movements 1 Daily Weight Change No General: Alert, Cooperative HEENT: Atraumatic, PERRLA Neck: Supple, No JVD, No Thyromegaly Lungs: Normal Air Movement, Other (Bilateral rhonchi) Heart: Regular Rate, Normal S1, Normal S2, No Murmurs Abdomen: Normal Bowel Sounds, Soft, No Tenderness, No Hepatosplenomegaly, No Masses Extremities: No Clubbing, No Cyanosis, No Edema, Normal Pulses, No Tenderness/S welling Skin: No Rashes, No Breakdown, No Significant Lesion Neuro: Normal Speech, Normal Tone, Sensation Intact Psych/Mental Status: Mental Status NL, Mood NL Results Lab Laboratory Tests 07/12/22 03:25 A/P-Cardiology Admission Diagnosis Pneumonia Acute respiratory failure Generalized weakness Debility Assessment/Plan Pneumonia, acute respiratory failure and sepsis Maintained on Vapotherm. Managed by primary care team 2D echo was done on July 11, 2022 with normal LV size, ejection fraction 55 to 60%, pulmonary artery pressure 30 mmHg. Generalized weakness, lethargy. Probably secondary to respiratory failure. 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 Has had ILR since 04/06/18 at the recommendation of Dr Ruiz. No atrial flutter/fib or other arrhythmia has been documented H/o nonspecific chest discomfort. MPI of 05/30/16 showed non ischemia or infarction and LVEF 76% History of pulmonary embolism in August 2019, was started on Eliquis. 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 Chronically occluded L ICA; mild R ICA disease COPD Rheumatoid and degenerative arthritis Chronic tobacco use - quit in 2014 PAD with history of ballooning and stent in of L SFA and common iliac in May [address] Sevilla and repeat intervention and stenting to the same artery by Dr Engel in Feb 2014. At the time of the angio by Dr Engel in Feb 2014, pt was also found to have patent bilat iliac stents. In Mar 2014 she underwent atherectomy and angioplasty of R sup fem, pop and ant tibial arteries by Dr Engel. Currently, her PAD is being followed by Dr Hewitt (Summer Nair) H/o borderline diabetes Surgeries: R TKR in December 2016 (Dr Flores). 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 debridement of left shoulder d/t spider bite (Jul 2014) DION QUINTANILLA MD Jul 12, 2022 10:27
--- NOTE | 2022-07-12 13:41 | Tele-ICU Progress Note ---
Subjective Date Seen by a Provider: Jul 12, 2022 Time Seen by a Provider: 13:41 Subjective/Events-last exam (Tele-ICU Physician , Progress note) Available chart/ vitals / labs / Images reviewed H&P is from ER notes Patient's information available about PMH, allergy reviewed in EMR. ROS as per chart and RN report Video assessment done using teleICU camera, rest of exam as per RN Discussed with RN. She is a 72-year-old female with past medical history of throat cancer for which she received radiation therapy and chemotherapy presented to the emergency room with a complaint of gurgling breathing for 2 days and she thinks she had a fever last night. Reportedly she has not vaccinated for COVID or influenza. In the emergency room she is found to be hypoxic requiring BiPAP ventilation. Also blood pressure is slightly on the low side requiring fluid bolus. She has severe leukocytosis. She is admitted to the intensive care unit with a suspected fever with septic shock and placed on a BiPAP ventilation. A detailed history could not be obtained as she is on the BiPAP ventilation. 07/12/22 Impression 1. Acute hypoxic respiratory failure in a patient who received a chemotherapy and radiation therapy. clinically improving. 2. Left lower lobe pneumonia 3. History of throat cancer status post chemoradiation therapy 4. Slightly elevated liver enzymes could be due to sepsis however other etiologies not ruled out. 5. Hx of dvt on Eliquis Recommendations 1. Continue hydration with normal saline 2. Broad-spectrum antibiotics per primary care physician 3. DVT prophylaxis and ulcer prophylaxis 4. Continue monitor electrolytes and white count. 5. Wean BiPAP as tolerated. 6. Blood cultures positive but awaiting identification. Plans as per bedside consultants and IM MDs. Sepsis Event Evaluation Height, Weight, BMI Height: 5'2.00" Weight: 180lbs. 0.0oz. 81.581554zd; 25.08 BMI Method:Actual Focused Exam Lactate Level 07/11/22 07:06: Lactic Acid Level 2.63*H 07/11/22 17:00: Lactic Acid Level 2.82*H 07/11/22 19:13: Lactic Acid Level 1.70 Exam Exam Patient acknowledged, consented, and participated in this virtual visit which was conducted using real time audio/video Vital Signs Date Time Temp Pulse Resp B/P (MAP) Pulse Ox O2 Delivery O2 Flow Rate FiO2 07/12/22 12:38 108 07/12/22 12:13 96 Vapotherm 10.00 50 07/12/22 12:00 105 18 140/62 (88) 95 Vapotherm 10.00 50.00 07/12/22 11:53 36.5 07/12/22 11:13 10.00 50 07/12/22 11:08 98 Vapotherm 20.00 60 07/12/22 11:00 101 11 151/69 (96) 98 Vapotherm 10.00 50.00 07/12/22 10:00 95 22 153/80 (104) 99 Vapotherm 20.00 60.00 07/12/22 09:00 96 25 156/76 (102) 97 Vapotherm 20.00 60.00 07/12/22 08:00 97 21 145/70 (95) 97 Vapotherm 20.00 60.00 07/12/22 08:00 98 Vapotherm 20.00 60 07/12/22 07:59 36.5 07/12/22 07:05 Vapotherm 20.00 60 07/12/22 07:00 70 16 140/81 (100) 100 Vapotherm 30.00 70.00 07/12/22 07:00 85 07/12/22 07:00 100 Vapotherm 30.00 70 07/12/22 06:00 73 18 147/86 (106) 100 Vapotherm 30.00 70.00 07/12/22 05:00 70 17 157/89 (111) 100 Vapotherm 30.00 70.00 07/12/22 04:00 36.2 78 18 129/74 (92) 100 Vapotherm 30.00 70.00 07/12/22 03:57 99 Vapotherm 30.00 70 07/12/22 03:00 72 27 131/66 (87) 100 Vapotherm 30.00 70.00 07/12/22 02:37 95 Vapotherm 30.00 70 07/12/22 02:00 66 17 132/78 (96) 100 Vapotherm 30.00 70.00 07/12/22 01:00 74 07/12/22 01:00 68 17 134/71 (92) 100 Vapotherm 30.00 70.00 07/12/22 00:00 78 18 133/71 (91) 100 Vapotherm 30.00 70.00 07/11/22 23:48 36.3 80 17 140/73 (95) 100 Vapotherm 30.00 70.00 07/11/22 23:47 100 Vapotherm 30.00 70 07/11/22 23:00 85 16 132/74 (93) 100 Vapotherm 30.00 70.00 07/11/22 22:00 88 18 129/72 (91) 99 Vapotherm 30.00 70.00 07/11/22 21:50 100 Vapotherm 30.00 70 07/11/22 21:00 36.2 94 22 146/81 (102) 94 Vapotherm 30.00 70.00 07/11/22 20:30 94 18 133/68 (89) 99 Vapotherm 30.00 70.00 07/11/22 19:57 93 110/58 07/11/22 19:23 100 Vapotherm 30.00 70 07/11/22 19:00 90 30 143/75 (97) 100 Vapotherm 30.00 70.00 07/11/22 19:00 97 Vapotherm 30.00 70 07/11/22 19:00 90 07/11/22 18:00 93 23 110/58 (75) 99 Vapotherm 30.00 70.00 07/11/22 17:00 91 27 123/63 (83) 97 Vapotherm 30.00 70.00 07/11/22 16:31 36.4 07/11/22 16:29 95 Vapotherm 30.00 70 07/11/22 16:00 104 27 118/57 (77) 98 Vapotherm 30.00 70.00 07/11/22 15:57 100 130/51 07/11/22 15:00 100 21 130/51 (77) 97 Vapotherm 30.00 70.00 07/11/22 14:37 96 Vapotherm 30.00 70 07/11/22 14:00 99 21 117/61 (79) 96 Vapotherm 30.00 70.00 I & O 07/12/22 07:00 Intake Total 3950 ml Output Total 550 ml Balance 3400 ml Height & Weight Height: 5'2.00" Weight: 180lbs. 0.0oz. 81.560335nq; 25.08 BMI Method:Actual General Appearance: Chronically ill, Other (Asleep) HEENT: PERRL/EOMI, Pharyngeal Erythema, Other Neck: Non Tender, Supple Respiratory: Decreased Breath Sounds, Wheezing Cardiovascular: Regular Rate, Rhythm Capillary Refill: Less Than 3 Seconds Extremity: Normal Range of Motion, Non Tender Neurologic/Psychiatric: Alert, Oriented x3, No Motor/Sensory Deficits, Normal Mood/Affect Skin: Normal Color, Warm/Dry Lymphatic: No Adenopathy Results Lab Laboratory Tests 07/11/22 07:06 07/12/22 03:25 Assessment/Plan Assessment/Plan as above Critical Care: Critically Ill Patient Time spent with patient (mins): 20 PATRICIA MILLER MD Jul 12, 2022 13:41
[2022-07-12] MEDS: MONTELUKAST 10 MG (SINGULAIR) TAB PO SCH (21:30)
[2022-07-12] MEDS: DexMEDEtomidine 250 ML DRIP 250 ML IV SCH (21:33)
[2022-07-13] MEDS: dilTIAZem DRIP PRE-MIX 125 ML IV SCH (00:14)
[2022-07-13] MEDS: RT-ALBUTEROL/IPRATROPIUM 3 ML (DUONEB) VIAL INH SCH ×6 (02:32→21:50)
[2022-07-13 03:31] LABS: BASOPHILS # (AUTO) 0.1 10^3/uL (0.0-0.1); BASOPHILS % (AUTO) 0 % (0-10); EOSINOPHILS # (AUTO) 0.2 10^3/uL (0.0-0.3); EOSINOPHILS % (AUTO) 1 % (0-10); HEMATOCRIT 31 % (35-52); LYMPHOCYTES # (AUTO) 0.5 10^3/uL (1.0-4.0); LYMPHOCYTES % (AUTO) 3 % (12-44); MEAN CORPUSCULAR HEMOGLOBIN 31 pg (25-34); MEAN CORPUSCULAR HGB CONC 33 g/dL (32-36); MEAN CORPUSCULAR VOLUME 95 fL (80-99); MEAN PLATELET VOLUME 9.6 fL (9.0-12.2); MONOCYTES # (AUTO) 0.6 10^3/uL (0.0-1.0); MONOCYTES % (AUTO) 3 % (0-12); NEUTROPHILS # (AUTO) 16.1 10^3/uL (1.8-7.8); NEUTROPHILS % (AUTO) 81 % (42-75); PLATELET COUNT 271 10^3/uL (130-400); WHITE BLOOD COUNT 19.9 10^3/uL (4.3-11.0)
[2022-07-13 03:57] LABS: ALBUMIN 2.7 GM/DL (3.2-4.5); BILIRUBIN,TOTAL 0.4 MG/DL (0.1-1.0); CALCIUM 8.7 MG/DL (8.5-10.1); CREATININE SERUM 0.71 MG/DL (0.60-1.30); MAGNESIUM 1.8 MG/DL (1.6-2.4); PHOSPHORUS 1.7 MG/DL (2.3-4.7); TOTAL PROTEIN 6.4 GM/DL (6.4-8.2)
[2022-07-13 04:10] LABS: POTASSIUM 2.5 MMOL/L (3.6-5.0)
[2022-07-13] MEDS: POTASSIUM CL 10MEQ/50ML IVPB 50 ML IV SCH ×5 (04:39→08:30)
[2022-07-13] MEDS: PIPERACILLIN SODIUM/TAZOBACTAM 4.5 GM in NS (IVPB) 100 ML IV SCH ×3 (04:40→21:16)
[2022-07-13] MEDS: inSUlin ASPART (NovoLOG) 1 UNIT/0.01 ML (CHARGE PER UNIT) SC SCH ×3 (04:40→17:31)
[2022-07-13] MEDS: methylPREDNISolone 40 MG/ML (Solu-MEDROL) VIAL IV SCH ×3 (04:40→17:29)
--- NOTE | 2022-07-13 05:05 | Progress Note - Hospitalist ---
Subjective HPI/CC On Admission Date Seen by Provider: Jul 13, 2022 Time Seen by Provider: 05:00 Chief complaint: Pneumonia with severe sepsis HPI: This is a 72-year-old female with COPD who presented to the ER with shortness of breath found to have O2 sat of 74% she was found to have pneumonia. BiPAP dependent precludes any other details. Patient will be placed in the ICU maintain on BiPAP with IV fluids and IV antibiotics and consulting Dr. Diane. Subjective/Events-last exam Much improved Remains on Vapotherm we will try to wean today Appreciate cardiology management of A. fib Patient denies any new issues Review of Systems Pulmonary: Dyspnea Focused Exam Lactate Level 07/11/22 07:06: Lactic Acid Level 2.63*H 07/11/22 17:00: Lactic Acid Level 2.82*H 07/11/22 19:13: Lactic Acid Level 1.70 Objective Exam Vital Signs Vital Signs Date Time Temp Pulse Resp B/P (MAP) Pulse Ox O2 Delivery O2 Flow Rate FiO2 07/13/22 09:00 102 13 154/79 (104) 99 Vapotherm 25.00 55.00 07/13/22 08:00 36.3 07/13/22 08:00 55 Capillary Refill : Less Than 3 Seconds General Appearance: No Apparent Distress, WD/WN, Chronically ill Respiratory: No Accessory Muscle Use, No Respiratory Distress, Decreased Breath Sounds, Wheezing Cardiovascular: Irregularly Irregular, Tachycardia Neurologic/Psychiatric: Alert, Oriented x3, No Motor/Sensory Deficits, Normal Mood/Affect Results/Procedures Lab Laboratory Tests 07/13/22 03:15 Patient resulted labs reviewed. Assessment/Plan Assessment and Plan Assess & Plan/Chief Complaint Assessment: Acute hypoxic respiratory failure maintain on Vapotherm now status post BiPAP Pneumonia Sepsis Elevated D-dimer placed on Lovenox therapeutic dose until stable enough to do CT angiogram Former smoker Volume overload? Atrial fibrillation on 07/13/2022 Plan: BiPAP and Vapotherm IV antibiotics High risk for intubation Lovenox Cardiology appreciated Critical Care Critically Ill Patient Diagnosis/Problems Diagnosis/Problems (1) Respiratory failure with hypoxia Status: Acute Qualifiers: Chronicity: acute Qualified Codes: J96.01 - Acute respiratory failure with hypoxia (2) Left lower lobe pneumonia Status: Acute Qualifiers: Pneumonia type: due to unspecified organism Qualified Codes: J18.9 - Pneumonia, unspecified organism VENESSA AYALA DO Jul 13, 2022 05:05
[2022-07-13] MEDS: MAGNESIUM 1 GM/100 ML IVPB 100 ML IV SCH (05:55)
[2022-07-13] MEDS: KCL 20 MEQ TAB (K-DUR) PO SCH (05:55)
[2022-07-13] MEDS ORDERED: POTASSIUM PHOSPHATE INJ 30 MM in NS (IVPB) 250 ML IV ONE (07:00)
[2022-07-13] MEDS: RT--FLUTICASONE/SALMETEROL 113-14 (AIRDUO RespiCLICK) IH SCH ×2 (07:12→18:31)
[2022-07-13] MEDS: DOCUSATE SODIUM 100 MG (COLACE) CAP PO SCH ×2 (08:30→20:32)
[2022-07-13] MEDS: SENNOSIDES 8.6 MG (SENOKOT) TAB PO SCH ×2 (08:30→20:31)
--- NOTE | 2022-07-13 08:33 | Tele-ICU Progress Note ---
Subjective Date Seen by a Provider: Jul 13, 2022 Time Seen by a Provider: 08:27 Subjective/Events-last exam She is a 72-year-old female with past medical history of throat cancer for which she received radiation therapy and chemotherapy presented to the emergency room with a complaint of gurgling breathing for 2 days and she thinks she had a fever last night. Reportedly she has not vaccinated for COVID or inf luenza. In the emergency room she is found to be hypoxic requiring BiPAP ventilation. Also blood pressure is slightly on the low side requiring fluid bolus. She has severe leukocytosis. She is admitted to the intensive care unit with a suspected fever with septic shock and placed on a BiPAP ventilation. A detailed history could not be obtained as she was on BiPAP ventilation. Now on vapotherm Currently on vapotherm @ 25 lpm with FiO2 55%, SpO2 is in 90's Not working hard to breathe, Now NPO as may be aspirated, will get swallow study tomorrow Sepsis Event Evaluation Height, Weight, BMI Height: 5'2.00" Weight: 180lbs. 0.0oz. 81.683608xz; 25.29 BMI Method:Actual Focused Exam Lactate Level 07/11/22 07:06: Lactic Acid Level 2.63*H 07/11/22 17:00: Lactic Acid Level 2.82*H 07/11/22 19:13: Lactic Acid Level 1.70 Exam Exam Patient acknowledged, consented, and participated in this virtual visit which was conducted using real time audio/video Vital Signs Date Time Temp Pulse Resp B/P (MAP) Pulse Ox O2 Delivery O2 Flow Rate FiO2 07/13/22 08:00 36.3 07/13/22 07:13 100 Vapotherm 25.00 55 07/13/22 06:00 92 19 162/83 (109) 100 Vapotherm 25.00 55.00 07/13/22 05:00 91 17 152/74 (100) 100 Vapotherm 25.00 55.00 07/13/22 04:50 Vapotherm 25.00 55.00 07/13/22 04:23 94 Vapotherm 25.00 65 07/13/22 04:23 92 07/13/22 04:00 80 15 118/68 (85) 100 Vapotherm 25.00 65.00 07/13/22 03:00 101 13 129/66 (87) 97 Vapotherm 25.00 65.00 07/13/22 02:34 100 Vapotherm 25.00 55 07/13/22 02:29 36.2 Vapotherm 25.00 65.00 07/13/22 02:00 89 14 125/64 (84) 100 Vapotherm 25.00 65.00 07/13/22 01:38 156 142/85 07/13/22 01:00 98 15 107/75 (86) 96 Vapotherm 25.00 65.00 07/13/22 01:00 124 07/13/22 00:20 95 Vapotherm 25.00 65 07/13/22 00:14 156 142/85 07/13/22 00:13 152 118/65 07/13/22 00:00 146 16 142/85 (104) 98 Vapotherm 25.00 65.00 07/12/22 23:52 36.6 Vapotherm 25.00 65.00 07/12/22 23:00 102 17 165/99 (121) 100 Vapotherm 30.00 80.00 07/12/22 22:00 97 Vapotherm 25.00 65 07/12/22 22:00 82 30 181/98 (125) 97 Vapotherm 30.00 80.00 07/12/22 21:33 98 118/65 07/12/22 21:00 83 15 174/98 (123) 98 Vapotherm 30.00 80.00 07/12/22 20:00 95 Vapotherm 30.00 80 07/12/22 20:00 79 16 159/91 (113) 99 Vapotherm 30.00 80.00 07/12/22 19:24 100 Vapotherm 30.00 80 07/12/22 19:22 100 Vapotherm 30.00 80 07/12/22 19:13 36.1 07/12/22 19:00 90 27 134/70 (91) 100 Vapotherm 30.00 80.00 07/12/22 19:00 37.0 07/12/22 19:00 90 07/12/22 19:00 Vapotherm 30.00 80.00 07/12/22 18:00 98 16 118/65 (82) 100 Vapotherm 30.00 100.00 07/12/22 17:00 96 25 125/76 (92) 100 Vapotherm 30.00 100.00 07/12/22 16:28 96 Vapotherm 10.00 50 07/12/22 16:00 92 17 167/84 (111) 100 Vapotherm 30.00 100.00 07/12/22 15:19 36.9 07/12/22 15:00 94 19 132/62 (85) 99 Vapotherm 30.00 100.00 07/12/22 14:22 Vapotherm 30.00 100.00 07/12/22 14:00 105 25 137/73 (94) 96 Vapotherm 10.00 50.00 07/12/22 13:00 100 12 137/71 (93) 96 Vapotherm 10.00 50.00 07/12/22 12:38 108 07/12/22 12:13 96 Vapotherm 10.00 50 07/12/22 12:00 105 18 140/62 (88) 95 Vapotherm 10.00 50.00 07/12/22 11:53 36.5 07/12/22 11:13 10.00 50 07/12/22 11:08 98 Vapotherm 20.00 60 07/12/22 11:00 101 11 151/69 (96) 98 Vapotherm 10.00 50.00 07/12/22 10:00 95 22 153/80 (104) 99 Vapotherm 20.00 60.00 07/12/22 09:00 96 25 156/76 (102) 97 Vapotherm 20.00 60.00 I & O 07/13/22 06:59 Intake Total 3550 ml Output Total 900 ml Balance 2650 ml Height & Weight Height: 5'2.00" Weight: 180lbs. 0.0oz. 81.020273gy; 25.29 BMI Method:Actual General Appearance: Chronically ill, Mild Distress, Other (Asleep) HEENT: PERRL/EOMI, Pharyngeal Erythema, Other Neck: Non Tender, Supple Respiratory: Crackles, Decreased Breath Sounds, Wheezing Cardiovascular: Regular Rate, Rhythm, Other (goes in and out of a flutter) Capillary Refill: Less Than 3 Seconds Gastrointestinal: normal bowel sounds, non tender, soft Extremity: Normal Range of Motion, Non Tender, No Pedal Edema Neurologic/Psychiatric: Alert, Oriented x3, No Motor/Sensory Deficits, Normal Mood/Affect Skin: Normal Color, Warm/Dry Lymphatic: No Adenopathy Results Lab Laboratory Tests 07/12/22 03:25 07/13/22 03:15 Assessment/Plan Assessment/Plan CXR I reviewed shows bibasilar infiltrates, will continue IV Zosyn, BC from port shows GPC, await ID, would add IV Vanco Also new CXR shows CHF, will give IV lasix 40 mg Critical Care: Critically Ill Patient Time spent with patient (mins): 30 JONAS ARIZA MD Jul 13, 2022 08:32
--- NOTE | 2022-07-13 08:45 | Diagnostic Imaging Report ---
EXAMINATION: Chest 1 view HISTORY: Heart failure COMPARISON: 07/12/2022 FINDINGS: Right port catheter tip terminates in the superior vena cava. A loop recorder projects over the chest. There is mild pulmonary edema. There is a small left effusion. No pneumothorax. Heart size is normal. IMPRESSION: 1. Mild pulmonary edema with small left pleural effusion. Dictated by: Dictated on workstation # [id number]
[2022-07-13] MEDS ORDERED: VANCOMYCIN INJECTION 1,000 MG in NS (IVPB) 250 ML IV ONE (10:15)
--- NOTE | 2022-07-13 10:21 | Cardiology Progress Note ---
Subjective Date Seen by Provider: Jul 13, 2022 Time Seen by Provider: 10:17 Subjective/Events-last exam Patient was seen at bedside, laying down comfortably, still on Vapotherm Review of Systems General: No Chills, No Night Sweats; Fatigue; No Malaise, No Appetite, No Other HEENT: No Head Aches, No Visual Changes, No Eye Pain, No Ear Pain, No Dysphasia, No Sinus Congestion, No Post Nasal Drip, No Sore Throat, No Other Pulmonary: Dyspnea; No Cough, No Pleuritic Chest Pain, No Other Cardiovascular: No: Chest Pain, Palpitations, Orthopnea, Paroxysmal Noc. Dyspnea, Edema, Lt Headedness, Other Focused Exam Lactate Level 07/11/22 07:06: Lactic Acid Level 2.63*H 07/11/22 17:00: Lactic Acid Level 2.82*H 07/11/22 19:13: Lactic Acid Level 1.70 Objective-Cardiology Exam Last Set of Vital Signs Vital Signs 07/13/22 07/13/22 08:00 09:00 Pulse 102 Resp 13 B/P (MAP) 154/79 (104) Pulse Ox 99 O2 Delivery Vapotherm O2 Flow Rate 25.00 55.00 FiO2 55 I&O Intake and Output 07/13/22 00:00 Intake Total 4400 ml Output Total 700 ml Balance 3700 ml Intake Oral 850 ml IV Total 3550 ml Output Urine Total 700 ml General: Alert, Cooperative HEENT: Atraumatic, PERRLA Neck: Supple, No JVD, No Thyromegaly Lungs: Normal Air Movement, Other (Bilateral rhonchi) Heart: Regular Rate, Normal S1, Normal S2, No Murmurs Abdomen: Normal Bowel Sounds, Soft, No Tenderness, No Hepatosplenomegaly, No Masses Extremities: No Clubbing, No Cyanosis, No Edema, Normal Pulses, No Tenderness/Swelling Skin: No Rashes, No Breakdown, No Significant Lesion Neuro: Normal Speech, Normal Tone, Sensation Intact Psych/Mental Status: Mental Status NL, Mood NL Results Lab Laboratory Tests 07/13/22 03:15 A/P-Cardiology Admission Diagnosis Pneumonia Acute respiratory failure Generalized weakness Debility Assessment/Plan Pneumonia, acute respiratory failure and sepsis Possible aspiration, currently placed n.p.o. Maintained on Vapotherm. Managed by primary care team 2D echo was done on July 11, 2022 with normal LV size, ejection fraction 55 to 60%, pulmonary artery pressure 30 mmHg. Generalized weakness, lethargy. Probably secondary to respiratory failure. 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 Has had ILR since 04/06/18 at the recommendation of Dr Ruiz. No atrial flutter/fib or other arrhythmia has been documented H/o nonspecific chest discomfort. MPI of 05/30/16 showed non ischemia or infarction and LVEF 76% History of pulmonary embolism in August 2019, was started on Eliquis. 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 Chronically occluded L ICA; mild R ICA disease COPD Rheumatoid and degenerative arthritis Chronic tobacco use - quit in 2014 PAD with history of ballooning and stent in of L SFA and common iliac in May [address] Sevilla and repeat intervention and stenting to the same artery by Dr Engel in Feb 2014. At the time of the angio by Dr Engel in Feb 2014, pt was also found to have patent bilat iliac stents. In Mar 2014 she underwent atherectomy and angioplasty of R sup fem, pop and ant tibial arteries by Dr Engel. Currently, her PAD is being followed by Dr Hewitt ([facility] N[facility]) H/o borderline diabetes Surgeries: R TKR in December 2016 (Dr Flores). 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 debridement of left shoulder d/t spider bite (Jul 2014) DION QUINTANILLA MD Jul 13, 2022 10:21
[2022-07-13] MEDS: PANTOPRAZOLE 40 MG (PROTONIX) TAB PO SCH (10:41)
[2022-07-13] MEDS: ENOXAPARIN 80 MG/0.8 ML (LOVENOX) SYR SC SCH ×2 (10:43→21:16)
--- NOTE | 2022-07-13 10:57 | Tele-ICU Progress Note ---
Subjective Date Seen by a Provider: Jul 13, 2022 Time Seen by a Provider: 10:55 Subjective/Events-last exam called by RN for increased WOB and more crackles, will get CXR, and probably give 40 mg IVP Lasix Sepsis Event Evaluation Height, Weight, BMI Height: 5'2.00" Weight: 180lbs. 0.0oz. 81.132125iv; 25.29 BMI Method:Actual Focused Exam Lactate Level 07/11/22 07:06: Lactic Acid Level 2.63*H 07/11/22 17:00: Lactic Acid Level 2.82*H 07/11/22 19:13: Lactic Acid Level 1.70 Exam Exam Patient acknowledged, consented, and participated in this virtual visit which was conducted using real time audio/video Vital Signs Date Time Temp Pulse Resp B/P (MAP) Pulse Ox O2 Delivery O2 Flow Rate FiO2 07/13/22 10:40 99 Vapotherm 25.00 55 07/13/22 10:00 96 21 159/89 (112) 100 Vapotherm 25.00 55.00 07/13/22 09:00 102 13 154/79 (104) 99 Vapotherm 25.00 55.00 07/13/22 08:00 36.3 07/13/22 08:00 102 155/81 (105) 98 Vapotherm 25.00 55.00 07/13/22 08:00 95 Vapotherm 25.00 55 07/13/22 07:13 100 Vapotherm 25.00 55 07/13/22 07:00 96 21 166/83 (110) 100 Vapotherm 25.00 55.00 07/13/22 07:00 104 07/13/22 06:00 92 19 162/83 (109) 100 Vapotherm 25.00 55.00 07/13/22 05:00 91 17 152/74 (100) 100 Vapotherm 25.00 55.00 07/13/22 04:50 Vapotherm 25.00 55.00 07/13/22 04:23 94 Vapotherm 25.00 65 07/13/22 04:23 92 07/13/22 04:00 80 15 118/68 (85) 100 Vapotherm 25.00 65.00 07/13/22 03:00 101 13 129/66 (87) 97 Vapotherm 25.00 65.00 07/13/22 02:34 100 Vapotherm 25.00 55 07/13/22 02:29 36.2 Vapotherm 25.00 65.00 07/13/22 02:00 89 14 125/64 (84) 100 Vapotherm 25.00 65.00 07/13/22 01:38 156 142/85 07/13/22 01:00 98 15 107/75 (86) 96 Vapotherm 25.00 65.00 07/13/22 01:00 124 07/13/22 00:20 95 Vapotherm 25.00 65 07/13/22 00:14 156 142/85 07/13/22 00:13 152 118/65 07/13/22 00:00 146 16 142/85 (104) 98 Vapotherm 25.00 65.00 07/12/22 23:52 36.6 Vapotherm 25.00 65.00 07/12/22 23:00 102 17 165/99 (121) 100 Vapotherm 30.00 80.00 07/12/22 22:00 97 Vapotherm 25.00 65 07/12/22 22:00 82 30 181/98 (125) 97 Vapotherm 30.00 80.00 07/12/22 21:33 98 118/65 07/12/22 21:00 83 15 174/98 (123) 98 Vapotherm 30.00 80.00 07/12/22 20:00 95 Vapotherm 30.00 80 07/12/22 20:00 79 16 159/91 (113) 99 Vapotherm 30.00 80.00 07/12/22 19:24 100 Vapotherm 30.00 80 07/12/22 19:22 100 Vapotherm 30.00 80 07/12/22 19:13 36.1 07/12/22 19:00 90 27 134/70 (91) 100 Vapotherm 30.00 80.00 07/12/22 19:00 37.0 07/12/22 19:00 90 07/12/22 19:00 Vapotherm 30.00 80.00 07/12/22 18:00 98 16 118/65 (82) 100 Vapotherm 30.00 100.00 07/12/22 17:00 96 25 125/76 (92) 100 Vapotherm 30.00 100.00 12/31/22 16:28 96 Vapotherm 10.00 50 07/12/22 16:00 92 17 167/84 (111) 100 Vapotherm 30.00 100.00 07/12/22 15:19 36.9 07/12/22 15:00 94 19 132/62 (85) 99 Vapotherm 30.00 100.00 07/12/22 14:22 Vapotherm 30.00 100.00 07/12/22 14:00 105 25 137/73 (94) 96 Vapotherm 10.00 50.00 07/12/22 13:00 100 12 137/71 (93) 96 Vapotherm 10.00 50.00 07/12/22 12:38 108 07/12/22 12:13 96 Vapotherm 10.00 50 07/12/22 12:00 105 18 140/62 (88) 95 Vapotherm 10.00 50.00 07/12/22 11:53 36.5 07/12/22 11:13 10.00 50 07/12/22 11:08 98 Vapotherm 20.00 60 07/12/22 11:00 101 11 151/69 (96) 98 Vapotherm 10.00 50.00 I & O 07/13/22 07:00 Intake Total 3550 ml Output Total 900 ml Balance 2650 ml Height & Weight Height: 5'2.00" Weight: 180lbs. 0.0oz. 81.338035ti; 25.29 BMI Method:Actual General Appearance: No Apparent Distress, WD/WN, Chronically ill HEENT: PERRL/EOMI, Pharyngeal Erythema, Other Neck: Non Tender, Supple Respiratory: No Accessory Muscle Use, No Respiratory Distress, Decreased Breath Sounds, Wheezing Cardiovascular: Irregularly Irregular, Tachycardia Capillary Refill: Less Than 3 Seconds Gastrointestinal: normal bowel sounds, non tender, soft Extremity: Normal Range of Motion, Non Tender, No Pedal Edema Neurologic/Psychiatric: Alert, Oriented x3, No Motor/Sensory Deficits, Normal Mood/Affect Skin: Normal Color, Warm/Dry Lymphatic: No Adenopathy Results Lab Laboratory Tests 07/12/22 03:25 07/13/22 03:15 Assessment/Plan Assessment/Plan increased WOB, will give IVP Lasix and get CXR Zaid Ariza MD Critical Care: Critically Ill Patient Time spent with patient (mins): 10 JONAS ARIZA MD Jul 13, 2022 10:57
[2022-07-13] MEDS ORDERED: VANCOMYCIN 1500 MG/NS 500 ML IVPB IV NR ×2 (11:00)
[2022-07-13] MEDS: PANTOPRAZOLE 40 MG (PROTONIX) VIAL IV SCH (11:13)
[2022-07-13] MEDS ORDERED: FUROSEMIDE 40 MG/4 ML INJ (LASIX) IVP ONE (11:30)
--- NOTE | 2022-07-13 11:33 | Diagnostic Imaging Report ---
EXAMINATION: Chest 1 view HISTORY: Heart failure, pneumonia. COMPARISON: 07/13/2022 FINDINGS: There is stable mild pulmonary edema. There is a small left effusion. No pneumothorax. Heart size is normal. Loop recorder is present. Right port catheter tip terminates in the superior vena cava. IMPRESSION: 1. Stable mild edema and small left effusion. Dictated by: Dictated on workstation # [id number]
[2022-07-13] MEDS: NS IV 1000 ML 1,000 ML IV SCH ×2 (17:00→21:16)
[2022-07-13] MEDS: MONTELUKAST 10 MG (SINGULAIR) TAB PO SCH (20:31)
[2022-07-13] MEDS ORDERED: LABETALOL HCL 20 MG/4 ML VIAL IV PRN (21:30)
[2022-07-13] MEDS: VANCOMYCIN 1250 MG/NS 250 ML IVPB IV SCH ×2 (22:20)
[2022-07-14] MEDS: inSUlin ASPART (NovoLOG) 1 UNIT/0.01 ML (CHARGE PER UNIT) SC SCH ×4 (00:32→18:22)
[2022-07-14] MEDS: methylPREDNISolone 40 MG/ML (Solu-MEDROL) VIAL IV SCH ×2 (00:32→06:22)
[2022-07-14] MEDS: dilTIAZem DRIP PRE-MIX 125 ML IV SCH (00:37)
[2022-07-14] MEDS: HYDROmorphone 2 MG/ML VIAL (DILAUDID) IV PRN ×2 (02:14→07:08)
[2022-07-14] MEDS: RT-ALBUTEROL/IPRATROPIUM 3 ML (DUONEB) VIAL INH SCH ×6 (02:33→21:48)
[2022-07-14 05:57] LABS: BASOPHILS % (AUTO) 0 % (0-10); EOSINOPHILS % (AUTO) 0 % (0-10); HEMATOCRIT 32 % (35-52); HEMOGLOBIN 10.5 g/dL (11.5-16.0); LYMPHOCYTES # (AUTO) 0.5 10^3/uL (1.0-4.0); LYMPHOCYTES % (AUTO) 3 % (12-44); MEAN CORPUSCULAR HEMOGLOBIN 31 pg (25-34); MEAN CORPUSCULAR HGB CONC 33 g/dL (32-36); MEAN CORPUSCULAR VOLUME 93 fL (80-99); MEAN PLATELET VOLUME 9.9 fL (9.0-12.2); MONOCYTES # (AUTO) 0.6 10^3/uL (0.0-1.0); MONOCYTES % (AUTO) 4 % (0-12); NEUTROPHILS # (AUTO) 12.8 10^3/uL (1.8-7.8); NEUTROPHILS % (AUTO) 92 % (42-75); PLATELET COUNT 325 10^3/uL (130-400); WHITE BLOOD COUNT 13.9 10^3/uL (4.3-11.0)
[2022-07-14 06:06] LABS: ALBUMIN 3.1 GM/DL (3.2-4.5); BILIRUBIN,TOTAL 0.7 MG/DL (0.1-1.0); CALCIUM 9.4 MG/DL (8.5-10.1); CREATININE SERUM 0.82 MG/DL (0.60-1.30); MAGNESIUM 1.7 MG/DL (1.6-2.4); PHOSPHORUS 2.4 MG/DL (2.3-4.7); POTASSIUM 3.3 MMOL/L (3.6-5.0); TOTAL PROTEIN 7.2 GM/DL (6.4-8.2)
[2022-07-14] MEDS: PIPERACILLIN SODIUM/TAZOBACTAM 4.5 GM in NS (IVPB) 100 ML IV SCH ×3 (06:22→21:55)
[2022-07-14] MEDS: POTASSIUM CL 10MEQ/50ML IVPB 50 ML IV SCH ×4 (06:23→10:05)
[2022-07-14] MEDS: KCL 20 MEQ TAB (K-DUR) PO SCH (06:23)
[2022-07-14] MEDS: MAGNESIUM 1 GM/100 ML IVPB 100 ML IV SCH ×3 (06:23→07:08)
[2022-07-14] MEDS: DOCUSATE SODIUM 100 MG (COLACE) CAP PO SCH ×2 (08:02→21:34)
[2022-07-14] MEDS: PANTOPRAZOLE 40 MG (PROTONIX) TAB PO SCH (08:02)
[2022-07-14] MEDS: SENNOSIDES 8.6 MG (SENOKOT) TAB PO SCH ×2 (08:02→21:34)
[2022-07-14] MEDS ORDERED: cloNIDine 0.2 MG PATCH (CATAPRES TTS) TDSY TD SCH (09:00)
[2022-07-14] MEDS: PANTOPRAZOLE 40 MG (PROTONIX) VIAL IV SCH (09:14)
[2022-07-14] MEDS: D5W 1000 ML IV SOLUTION 1,000 ML IV SCH (09:14)
[2022-07-14] MEDS: ENOXAPARIN 80 MG/0.8 ML (LOVENOX) SYR SC SCH ×2 (09:14→21:55)
--- NOTE | 2022-07-14 09:15 | Tele-ICU Progress Note ---
Subjective Date Seen by a Provider: Jul 14, 2022 Time Seen by a Provider: 09:10 Subjective/Events-last exam (Tele-ICU Physician , Progress note) Available chart/ vitals / labs / Images reviewed H&P is from ER notes Patient's information available about PMH, allergy reviewed in EMR. ROS as per chart and RN report Video assessment done using teleICU camera, rest of exam as per RN Discussed with RN. She is a 72-year-old female with past medical history of throat cancer for which she received radiation therapy and chemotherapy presented to the emergency room with a complaint of gurgling breathing for 2 days and she thinks she had a fever last night. Reportedly she has not vaccinated for COVID or influenza. In the emergency room she is found to be hypoxic requiring BiPAP ventilation. Also blood pressure is slightly on the low side requiring fluid bolus. She has severe leukocytosis. She is admitted to the intensive care unit with a suspected fever with septic shock and placed on a BiPAP ventilation. A detailed history could not be obtained as she is on the BiPAP ventilation. 07/14/22 BLOOD C/S GREW STREPTOCOCCUS PYOGENOUS GROUP A. has hypernatremia, 149. Bp has been high despite prn labetolol. on vapoterm 25L/3% but o2 sats 87%. hence advised to increase fi2 to 40%. CXR showing mild improvement. Impression 1. Acute hypoxic respiratory failure in a patient who received a chemotherapy and radiation therapy. clinically improving. 2. Left lower lobe pneumonia 3. History of throat cancer status post chemoradiation therapy 4. Slightly elevated liver enzymes could be due to sepsis however other etiologies not ruled out. 5. Hx of dvt on Eliquis. 6. Streptococcal sepsis. 7. Uncontrolled hypertension Recommendations 1. Change ivf to D5W 2. Suggest to discontinue vancomycin and continue zosyn 3. DVT prophylaxis and ulcer prophylaxis 4. Continue monitor electrolytes and white count. 5. Increase fio2 in [place] 6. Will repeat blood c/s 7. suggest stop steroids 8. increase labetolol , add clonidine patch and prn Hydralazine Plans as per bedside consultants and IM MDs. Sepsis Event Evaluation Height, Weight, BMI Height: 5'2.00" Weight: 180lbs. 0.0oz. 81.236691aj; 26.98 BMI Method:Actual Focused Exam Lactate Level 07/11/22 17:00: Lactic Acid Level 2.82*H 07/11/22 19:13: Lactic Acid Level 1.70 Exam Exam Patient acknowledged, consented, and participated in this virtual visit which was conducted using real time audio/video Vital Signs Date Time Temp Pulse Resp B/P (MAP) Pulse Ox O2 Delivery O2 Flow Rate FiO2 07/14/22 08:44 Vapotherm 30.00 50.00 07/14/22 08:00 37.7 07/14/22 08:00 94 10 172/97 (122) 94 Vapotherm 25.00 30.00 07/14/22 07:31 93 07/14/22 07:18 94 Vapotherm 25.00 30 07/14/22 07:00 93 13 194/116 (142) 95 Vapotherm 25.00 30.00 07/14/22 06:00 93 13 186/111 (136) 95 Vapotherm 25.00 30.00 07/14/22 05:00 92 16 167/99 (121) 95 Vapotherm 25.00 30.00 07/14/22 04:00 87 15 153/93 (113) 95 Vapotherm 25.00 30.00 07/14/22 04:00 95 Vapotherm 25.00 30 07/14/22 04:00 36.8 Vapotherm 25.00 30.00 07/14/22 03:00 90 15 150/88 (108) 92 Vapotherm 25.00 25.00 07/14/22 02:33 92 Vapotherm 25.00 30 07/14/22 02:00 89 18 148/80 (102) 92 Vapotherm 25.00 25.00 07/14/22 01:00 111 23 166/111 (129) 94 Vapotherm 25.00 25.00 07/14/22 01:00 111 07/14/22 00:00 111 24 168/102 (124) 96 Vapotherm 25.00 25.00 07/13/22 23:59 93 Vapotherm 25.00 25 07/13/22 23:00 113 25 171/91 (117) 94 Vapotherm 25.00 25.00 07/13/22 22:00 117 19 171/90 (117) 94 Vapotherm 25.00 25.00 07/13/22 21:50 94 Vapotherm 25.00 25 07/13/22 21:00 117 22 176/99 (124) 95 Vapotherm 25.00 25.00 07/13/22 20:30 Vapotherm 25.00 25.00 07/13/22 20:00 114 23 170/84 (112) 95 Vapotherm 25.00 35.00 07/13/22 20:00 93 Vapotherm 25.00 25 07/13/22 19:57 36.8 07/13/22 19:00 113 15 181/92 (121) 97 Vapotherm 25.00 35.00 07/13/22 19:00 113 07/13/22 18:36 97 Vapotherm 25.00 45 07/13/22 18:31 97 Vapotherm 25.00 45 07/13/22 18:00 106 15 177/88 (117) 96 Vapotherm 25.00 35.00 07/13/22 17:00 110 27 187/89 (121) 97 Vapotherm 25.00 40.00 07/13/22 16:03 37.0 07/13/22 16:00 108 12 187/82 (117) 100 Vapotherm 25.00 40.00 07/13/22 15:12 98 Vapotherm 25.00 45 07/13/22 15:05 100 Vapotherm 25.00 45 07/13/22 15:00 103 26 163/116 (132) 99 Vapotherm 25.00 40.00 07/13/22 14:00 98 19 169/72 (104) 100 Vapotherm 25.00 40.00 07/13/22 13:00 101 18 164/88 (113) 100 Vapotherm 25.00 55.00 07/13/22 12:50 101 07/13/22 12:00 98 Vapotherm 25.00 45 07/13/22 12:00 105 20 162/97 (118) 99 Vapotherm 25.00 55.00 07/13/22 12:00 36.2 07/13/22 11:00 105 33 99 Vapotherm 25.00 55.00 07/13/22 10:40 99 Vapotherm 25.00 55 07/13/22 10:00 96 21 159/89 (112) 100 Vapotherm 25.00 55.00 I & O 07/14/22 07:00 Intake Total 362.5 ml Output Total 4700 ml Balance -4337.5 ml Height & Weight Height: 5'2.00" Weight: 180lbs. 0.0oz. [id number]; 26.98 BMI Method:Actual General Appearance: Chronically ill, Mild Distress, Other (Asleep) HEENT: PERRL/EOMI, Pharyngeal Erythema, Other Neck: Non Tender, Supple Respiratory: Crackles, Decreased Breath Sounds, Wheezing Cardiovascular: Regular Rate, Rhythm, Other (goes in and out of a flutter) Capillary Refill: Less Than 3 Seconds Gastrointestinal: normal bowel sounds, non tender, soft Extremity: Normal Range of Motion, Non Tender, No Pedal Edema Neurologic/Psychiatric: Alert, Oriented x3, No Motor/Sensory Deficits, Normal Mood/Affect Skin: Normal Color, Warm/Dry Lymphatic: No Adenopathy Results Lab Laboratory Tests 07/13/22 03:15 07/14/22 05:35 Assessment/Plan Assessment/Plan as above Critical Care: Critically Ill Patient Time spent with patient (mins): 25 PATRICIA MILLER MD Jul 14, 2022 09:15
--- NOTE | 2022-07-14 09:31 | Diagnostic Imaging Report ---
EXAMINATION: Chest, 1 view. HISTORY: Congestive heart failure. COMPARISON: 07/13/2022. FINDINGS: Heart size and pulmonary vasculature are normal. There are mild interstitial opacities in the lung bases. Right-sided port catheter is unchanged. No pneumothorax. Likely trace left pleural effusion. The osseous structures are intact. IMPRESSION: Stable interstitial opacities within the lower lungs and trace left pleural effusion compared to 07/13/2022. Dictated by: Dictated on workstation # [id number]
--- NOTE | 2022-07-14 09:47 | Progress Note ---
Subjective Subjective/Events-last exam States she is feeling better, denies concerns. Is on 80% FiO2 this am, typically wears 2.5 lpm at night. Focused Exam Lactate Level 07/11/22 17:00: Lactic Acid Level 2.82*H 07/11/22 19:13: Lactic Acid Level 1.70 Objective Exam Last Set of Vital Signs Vital Signs Date Time Temp Pulse Resp B/P (MAP) Pulse Ox O2 Delivery O2 Flow Rate FiO2 07/14/22 09:34 Vapotherm 40.00 80.00 07/14/22 09:00 95 10 166/96 (119) 87 07/14/22 08:00 37.7 07/14/22 07:18 30 Capillary Refill : Less Than 3 Seconds I&O Intake and Output 07/14/22 00:00 Intake Total 612.5 ml Output Total 4250 ml Balance -3637.5 ml Intake Oral 250 ml IV Total 362.5 ml Output Urine Total 4250 ml General: Alert, No Acute Distress Lungs: Other (decreased air movement) Heart: No Murmurs Abdomen: Normal Bowel Sounds, Soft Extremities: No Edema Neuro: Normal Speech Psych/Mental Status: Mood NL Results/Procedures Lab Laboratory Tests 07/13/22 11:59: Glucometer 107 07/13/22 17:31: Glucometer 108 07/14/22 00:30: Glucometer 132H 07/14/22 05:35: White Blood Count 13.9H, Red Blood Count 3.43L, Hemoglobin 10.5L, Hematocrit 32L , Mean Corpuscular Volume 93, Mean Corpuscular Hemoglobin 31, Mean Corpuscular Hemoglobin Concent 33, Red Cell Distribution Width 13.7, Platelet Count 325, Mean Platelet Volume 9.9, Immature Granulocyte % (Auto) 1, Neutrophils (%) (Auto) 92H, Lymphocytes (%) (Auto) 3L, Monocytes (%) (Auto) 4, Eosinophils (%) (Auto) 0, Basophils (%) (Auto) 0, Neutrophils # (Auto) 12.8H, Lymphocytes # (Auto) 0.5L, Monocytes # (Auto) 0.6, Eosinophils # (Auto) 0.0, Basophils # (Auto) 0.0, Immature Granulocyte # (Auto) 0.1, Sodium Level 149H, Potassium Level 3.3L, Chloride Level 113H, Carbon Dioxide Level 25, Anion Gap 11, Blood Urea Nitrogen 27H, Creatinine 0.82, Estimat Glomerular Filtration Rate 75, BUN/Creatinine Ratio 33, Glucose Level 127H, Calcium Level 9.4, Corrected Calcium 10.1, Phosphorus Level 2.4, Magnesium Level 1.7, Total Bilirubin 0.7, Aspartate Amino Transf (AST/SGOT) 53H, Alanine Aminotransferase (ALT/SGPT) 47, Alkaline Phosphatase 88, Total Protein 7.2, Albumin 3.1L Microbiology 07/11/22 Urine Culture - Final, Complete NO GROWTH 07/11/22 MRSA Screen - Final, Complete MRSA not isolated 07/11/22 Blood Culture - Preliminary, Resulted Streptococcus pyogenes Grp A Assessment/Plan Assessment/Plan (1) Sepsis Status: Acute Assessment & Plan: Secondary to pneumonia. LA down to normal, no end organ dysfunction other than lung where infection is primary. (2) Left lower lobe pneumonia Status: Acute Assessment & Plan: On Zosyn and Vancomycin. Concern for aspiration due to gurgling, difficulty with secretions and history of dysphagia. ST consulted. Qualifiers: Qualified Codes: J18.9 - Pneumonia, unspecified organism (3) Respiratory failure with hypoxia Status: Acute Assessment & Plan: Secondary to pneumonia and COPD exacerbation. Qualifiers: Qualified Codes: J96.01 - Acute respiratory failure with hypoxia (4) COPD exacerbation Status: Acute Assessment & Plan: Solumedrol, duonebs. Requiring vapotherm with high FiO2 requirement this am. (5) COPD (chronic obstructive pulmonary disease) Status: Chronic Assessment & Plan: On chronic inhaled steroid/LABA/anticholinergic. On duonebs and steroid/LABA combo inpatient. 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 Has had gastric tubes twice in past. 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
[2022-07-14] MEDS: RT--FLUTICASONE/SALMETEROL 113-14 (AIRDUO RespiCLICK) IH SCH ×2 (11:02→21:48)
[2022-07-14] MEDS: VANCOMYCIN 1250 MG/NS 250 ML IVPB IV SCH ×2 (11:04)
[2022-07-14] MEDS: LABETALOL HCL 20 MG/4 ML VIAL IV PRN ×2 (11:04→13:04)
--- NOTE | 2022-07-14 11:20 | Cardiology Progress Note ---
Subjective Date Seen by Provider: Jul 14, 2022 Time Seen by Provider: 11:19 Subjective/Events-last exam Patient was seen at bedside, had an episode of acute decompensation this morning, currently feeling better Maintained on Vapotherm Review of Systems General: No Chills, No Night Sweats; Fatigue, Malaise; No Appetite, No Other HEENT: No Head Aches, No Visual Changes, No Eye Pain, No Ear Pain, No Dysphasia, No Sinus Congestion, No Post Nasal Drip, No Sore Throat, No Other Pulmonary: Dyspnea; No Cough, No Pleuritic Chest Pain, No Other Cardiovascular: No: Chest Pain, Palpitations, Orthopnea, Paroxysmal Noc. Dyspnea, Edema, Lt Headedness, Other Focused Exam Lactate Level 07/11/22 17:00: Lactic Acid Level 2.82*H 07/11/22 19:13: Lactic Acid Level 1.70 Objective-Cardiology Exam Last Set of Vital Signs Vital Signs 07/14/22 07/14/22 07/14/22 08:00 10:00 11:10 Pulse 94 Resp 11 B/P (MAP) 174/96 (122) Pulse Ox 92 O2 Delivery Vapotherm O2 Flow Rate 25.00 45.00 FiO2 30 I&O Intake and Output 07/14/22 00:00 Intake Total 612.5 ml Output Total 4250 ml Balance -3637.5 ml Intake Oral 250 ml IV Total 362.5 ml Output Urine Total 4250 ml General: Alert, Cooperative, No Acute Distress HEENT: Atraumatic, PERRLA Neck: Supple, No JVD, No Thyromegaly Lungs: Other Heart: Regular Rate, Normal S1, Normal S2, No Murmurs Abdomen: Normal Bowel Sounds, Soft Extremities: No Clubbing, No Edema Skin: No Rashes, No Breakdown, No Significant Lesion Neuro: Normal Speech Psych/Mental Status: Mood NL Results Lab Laboratory Tests 07/14/22 05:35 A/P-Cardiology Admission Diagnosis Pneumonia Acute respiratory failure Generalized weakness Debility Assessment/Plan Pneumonia, acute respiratory failure and sepsis Possible aspiration, currently placed n.p.o. Maintained on Vapotherm. Managed by primary care team 2D echo was done on July 11, 2022 with normal LV size, ejection fraction 55 to 60%, pulmonary artery pressure 30 mmHg. Generalized weakness, lethargy. Probably secondary to respiratory failure. 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 Has had ILR since 04/06/18 at the recommendation of Dr Ruiz. No atrial flutter/fib or other arrhythmia has been documented H/o nonspecific chest discomfort. MPI of 05/30/16 showed non ischemia or infarction and LVEF 76% History of pulmonary embolism in August 2019, was started on Eliquis. 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 Chronically occluded L ICA; mild R ICA disease COPD Rheumatoid and degenerative arthritis Chronic tobacco use - quit in 2014 PAD with history of ballooning and stent in of L SFA and common iliac in May [address] Sevilla and repeat intervention and stenting to the same artery by Dr Engel in Feb 2014. At the time of the angio by Dr Engel in Feb 2014, pt was also found to have patent bilat iliac stents. In Mar 2014 she underwent atherectomy and angioplasty of R sup fem, pop and ant tibial arteries by Dr Engel. Currently, her PAD is being followed by Dr Hewitt ([facility]) H/o borderline diabetes Surgeries: R TKR in December 2016 (Dr Flores). 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 debridement of left shoulder d/t spider bite (Jul 2014) DION QUINTANILLA MD Jul 14, 2022 11:20
[2022-07-14] MEDS: hydrALAZINE (APESOLINE) 20 MG/ML VIAL IV PRN ×2 (12:09→16:53)
--- NOTE | 2022-07-14 12:46 | ST Dysphagia Evaluation ---
Speech Evaluation-General Medical Diagnosis Pneumonia Onset Date: Jul 11, 2022 Therapy Diagnosis Therapy Diagnosis: Oropharyngeal Dysphagia Precautions Precautions: Fall, Pressure Ulcer, Aspiration Precautions/Isolations: Aspiration, Fall Prevention, Pressure Ulcer Referral Referring Physician: Dr. Rausch Reason for Referral: Evaluation/Treatment Medical History Pertinent Medical History: Atrial Fib, Arthritis, COPD, CVA, Dementia, GERD, PVD, Rheumatoid Arthritis, Smoking Current History The patient is a 72-year-old female with a past medical history significant for COPD, who presented to the ER with shortness of breath and admitted with a diagnosis of pneumonia. CXR: 07/14/2022: Stable interstitial opacities within the lower lungs and trace left pleural effusion compared to 07/13/2022. Speech PLF/Current-Dysphagia Prior Level of Function Per patient's daughter, the patient consumes soft consistencies with thin liquids at home. The patient is able to take pills one at a time. The patient's daughter does report, "it takes her awhile to get everything down." The patient previously had a PEG tube which was removed approximately one year ago. Subjective The patient was lying in bed resting upon entrance to her room by the clinician. The patient woke easily to a verbal greeting and was agreeable to participation in the clinical bedside swallowing evaluation. The patient has her daughter at bedside who remains for the evaluation. Cognitive Status Patient Orientation: Person, Place, Situation Oral Motor Skills Dentition: Edentalous Ability to Follow Directions: Fair Oral Expression Ability: Mild Impairment Voice Voice Phonatory-Based Quality: Breathy, Weak Face Facial Symmetry: Symmetrical Oral-Facial Assessment Oral-Facial Dentition: Normal Labial Seal Description: Weak Smile: Reduced ROM Puff Cheeks: Reduced Strength Lingual Protrusion: Normal Lingual ROM: Normal Lingual Strength: Normal Volitional Dry Swallow: Yes Voluntary Cough: Yes Can Clear Throat Volitionally: Yes Dysphagia Evaluation Consistencies Presented: Thin Liquid, Valera Thick Liquid, Pureed Oral Phase: Reduced Oral Transit With maximum verbal prompting and tactile stimulation, the patient was able to remove bolus material from a spoon and straw. Anterior spillage of bolus material was not displayed throughout the study. Oral holding behaviors were present which improved with verbal prompting from the clinician. Upon the swallow, facial grimacing was noted. The patient was inconsistent with reports to the clinician regarding odynophagia. Laryngeal elevation was present to palpation. An effortful swallow appeared to be displayed consistently throughout the bedside study. The patient did not display overt s/s of suspected aspiration with ice chips, teaspoons of thin liquid, teaspoons of nectar-thick liquid, limited straw drinks of nectar-thick liquids, or puree. The patient displayed a delayed cough following each trial of thin liquid via straw (small sip). To note, the patient kept her eyes closed for the complete study. Fatigue was present with consistent verbal prompting required for continued participation. Dietary Recommendations: NPO Liquid Recommendations: NPO As the patient presents with multiple factors which increase her risk of silent aspiration (previous radiation therapy to the mouth and neck region, previous PEG placement and dysphagia, current diagnosis of COPD, current high level of supplemental oxygen support via Vapotherm, overall fatigue) and due to her admitting diagnosis of pneumonia, the clinician highly recommends completion of a modified barium swallow prior to the initiation of P.O. intake. The clinician was able to schedule the modified barium swallow evaluation for 07/15/2022 at 1200. Recommendations: - The patient should remain N.P.O. at this time. - Frequent and excellent oral care to decrease the risk of possible aspiration if bacteria from the patient's oral secretions. - Following oral care, ice chips can be provided sparingly to provide rehabilitation to the oropharyngeal swallowing function and increase patient comfort. - Completion of a modified barium swallowing evaluation. The results and recommendations were provided to the patient and the patient's daughter. Extensive education was provided to the daughter regarding the rationale for completion of the modified barium swallow study and the patient's daughter reported comfort with the plan of care. The clinician discussed the findings with the RN following completion of the study. Dysphagia Evaluation Summary The patient displayed suspected oropharyngeal dysphagia characterized by decreased lingual coordination, a delayed onset of the pharyngeal swallow, reduced pharyngeal and laryngeal sensation, and decreased airway protection in t he presence of bolus material. Speech Short Term Goals Short Term Goals Short Term Goals 1. The patient will tolerate trials of the least restrictive diet consistency without s/s of suspected aspiration. Time Frame-STG: Three Days. Speech Mcfp Goals Mcfp Goals 1. The patient will tolerate the least restrictive diet consistency without s/s of suspected aspiration. Time Frame: One Week. Speech-Plan Treatment Plan Speech Therapy Treatment Plan: Continue Plan of Care Treatment Duration: Jul 14, 2022 Frequency: 3 times per week Estimated Hrs Per Day: .5 hour per day Rehab Potential: Guarded Safety Risks/Education Teaching Recipient: Patient, Family Teaching Methods: Discussion Response to Teaching: Verbalize Understanding Education Topics Provided: Results, Plan of Care, Recommendations, Education re: Oropharyngeal Swallow Time Speech Therapy Time In: 12:00 Speech Therapy Time Out: 12:25 DATE: Jul 14, 2022 Total Billed Time: 25 Billed Treatment Time 1, CAS BUENROSTRO [facility] Jul 14, 2022 12:46
[2022-07-14] MEDS: MONTELUKAST 10 MG (SINGULAIR) TAB PO SCH (21:34)
[2022-07-14] MEDS ORDERED: TROUGH ORDER-PHARMACY XX NR (22:00)
[2022-07-15] MEDS: hydrALAZINE (APESOLINE) 20 MG/ML VIAL IV PRN ×2 (00:54→23:37)
[2022-07-15] MEDS: HYDROmorphone 2 MG/ML VIAL (DILAUDID) IV PRN (00:55)
[2022-07-15] MEDS: dilTIAZem DRIP PRE-MIX 125 ML IV SCH (00:57)
[2022-07-15] MEDS: inSUlin ASPART (NovoLOG) 1 UNIT/0.01 ML (CHARGE PER UNIT) SC SCH ×4 (00:57→17:51)
[2022-07-15] MEDS: D5W 1000 ML IV SOLUTION 1,000 ML IV SCH ×2 (02:04→17:51)
[2022-07-15] MEDS: RT-ALBUTEROL/IPRATROPIUM 3 ML (DUONEB) VIAL INH SCH ×6 (02:18→22:30)
[2022-07-15 04:18] LABS: BASOPHILS % (AUTO) 0 % (0-10); EOSINOPHILS # (AUTO) 0.1 10^3/uL (0.0-0.3); EOSINOPHILS % (AUTO) 1 % (0-10); HEMATOCRIT 33 % (35-52); HEMOGLOBIN 10.9 g/dL (11.5-16.0); LYMPHOCYTES # (AUTO) 0.8 10^3/uL (1.0-4.0); LYMPHOCYTES % (AUTO) 6 % (12-44); MEAN CORPUSCULAR HEMOGLOBIN 31 pg (25-34); MEAN CORPUSCULAR HGB CONC 33 g/dL (32-36); MEAN CORPUSCULAR VOLUME 94 fL (80-99); MEAN PLATELET VOLUME 9.6 fL (9.0-12.2); MONOCYTES % (AUTO) 7 % (0-12); NEUTROPHILS # (AUTO) 12.6 10^3/uL (1.8-7.8); NEUTROPHILS % (AUTO) 84 % (42-75); PLATELET COUNT 294 10^3/uL (130-400)
[2022-07-15 04:42] LABS: ALBUMIN 2.8 GM/DL (3.2-4.5)
[2022-07-15 04:43] LABS: POTASSIUM 3.5 MMOL/L (3.6-5.0)
[2022-07-15 04:44] LABS: CALCIUM 9.4 MG/DL (8.5-10.1)
[2022-07-15 04:45] LABS: TOTAL PROTEIN 6.7 GM/DL (6.4-8.2)
[2022-07-15 04:47] LABS: BILIRUBIN,TOTAL 0.8 MG/DL (0.1-1.0)
[2022-07-15 04:48] LABS: PHOSPHORUS 2.1 MG/DL (2.3-4.7)
[2022-07-15 04:49] LABS: CREATININE SERUM 0.77 MG/DL (0.60-1.30)
[2022-07-15] MEDS: KCL 20 MEQ TAB (K-DUR) PO SCH (04:49)
[2022-07-15] MEDS: POTASSIUM CL 10MEQ/50ML IVPB 50 ML IV SCH ×2 (04:49→05:34)
[2022-07-15 04:51] LABS: MAGNESIUM 2.2 MG/DL (1.6-2.4)
[2022-07-15 04:51] LABS: ABG BASE EXCESS 3.6 MMOL/L (-2.5-2.5); ABG OXYGEN SATURATION 99 % (94-100); ABG PCO2 49 MMHG (35-45); ABG PH 7.38 (7.37-7.43); ABG PO2 97 MMHG (79-93); ABG TCO2 29.9 MMOL/L (21.0-31.0); ALLENS TEST YES-POS; INSPIRED O2 4L
[2022-07-15 04:52] LABS: PATIENT TEMP 36.7; VENTILATOR NO
[2022-07-15] MEDS: PIPERACILLIN SODIUM/TAZOBACTAM 4.5 GM in NS (IVPB) 100 ML IV SCH ×3 (05:34→21:12)
[2022-07-15] MEDS: MAGNESIUM 1 GM/100 ML IVPB 100 ML IV SCH (05:34)
[2022-07-15] MEDS ORDERED: POTASSIUM PHOSPHATE INJ 30 MM in NS (IVPB) 250 ML IV ONE (06:30)
[2022-07-15] MEDS ORDERED: DILTIAZEM 100 MG IV SCH (07:00)
[2022-07-15] MEDS ORDERED: SODIUM CHLORIDE IV SCH (07:00)
[2022-07-15] MEDS: DOCUSATE SODIUM 100 MG (COLACE) CAP PO SCH (07:41)
[2022-07-15] MEDS: SENNOSIDES 8.6 MG (SENOKOT) TAB PO SCH (07:41)
[2022-07-15] MEDS: RT--FLUTICASONE/SALMETEROL 113-14 (AIRDUO RespiCLICK) IH SCH ×2 (07:56→22:31)
--- NOTE | 2022-07-15 08:29 | Cardiology Progress Note ---
Subjective Date Seen by Provider: Jul 15, 2022 Time Seen by Provider: 08:28 Subjective/Events-last exam Patient is laying down in bed, feeling better today. No new complaint Review of Systems General: No Chills, No Night Sweats, No Fatigue, No Malaise, No Appetite, No Other HEENT: No Head Aches, No Visual Changes, No Eye Pain, No Ear Pain, No Dysphasia, No Sinus Congestion, No Post Nasal Drip, No Sore Throat, No Other Pulmonary: No Dyspnea, No Cough, No Pleuritic Chest Pain, No Other Cardiovascular: No: Chest Pain, Palpitations, Orthopnea, Paroxysmal Noc. Dyspnea, Edema, Lt Headedness, Other Objective-Cardiology Exam Last Set of Vital Signs Vital Signs 07/14/22 07/15/22 07/15/22 07/15/22 18:50 04:52 06:22 07:08 Temp 36.7 Pulse 84 Resp 22 B/P (MAP) 148/78 (101) FiO2 35 I&O Intake and Output 07/15/22 00:00 Intake Total 1477.5 ml Output Total 1800 ml Balance -322.5 ml Intake Oral 15 ml IV Total 1462.5 ml Output Urine Total 1800 ml General: Alert, Cooperative, No Acute Distress HEENT: Atraumatic, PERRLA Neck: Supple, No JVD, No Thyromegaly Lungs: Other (decreased air movement) Heart: Regular Rate, Normal S1, Normal S2, No Murmurs Abdomen: Normal Bowel Sounds, Soft Extremities: No Clubbing, No Edema Skin: No Rashes, No Breakdown, No Significant Lesion Neuro: Normal Speech Psych/Mental Status: Mood NL Results Lab Laboratory Tests 07/15/22 04:08 A/P-Cardiology Admission Diagnosis Pneumonia Acute respiratory failure Generalized weakness Debility Assessment/Plan Pneumonia, acute respiratory failure and sepsis Possible aspiration, currently placed n.p.o. Maintained on Vapotherm. Managed by primary care team Questionable underlying aspiration, speech has evaluated the patient Patient is scheduled for barium swallow. Paroxysmal atrial fibrillation, had few episodes of atrial fibrillation, started on Cardizem drip, still not taking anything by mouth, once she start tolerating any type of food we will initiate oral Cardizem 2D echo was done on July 11, 2022 with normal LV size, ejection fraction 55 to 60%, pulmonary artery pressure 30 mmHg. Generalized weakness, lethargy. Probably secondary to respiratory failure. 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 Has had ILR since 04/06/18 at the recommendation of Dr Ruiz. No atrial flutter/fib or other arrhythmia has been documented H/o nonspecific chest discomfort. MPI of 05/30/16 showed non ischemia or infarction and LVEF 76% History of pulmonary embolism in August 2019, was started on Eliquis. 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 Chronically occluded L ICA; mild R ICA disease COPD Rheumatoid and degenerative arthritis Chronic tobacco use - quit in 2014 PAD with history of ballooning and stent in of L SFA and common iliac in May [address] Sevilla and repeat intervention and stenting to the same artery by Dr Engel in Feb 2014. At the time of the angio by Dr Engel in Feb 2014, pt was also found to have patent bilat iliac stents. In Mar 2014 she underwent atherectomy and angioplasty of R sup fem, pop and ant tibial arteries by Dr Engel. Currently, her PAD is being followed by Dr Hewitt (Summer Nair) H/o borderline diabetes Surgeries: R TKR in December 2016 (Dr Flores). 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 debridement of left shoulder d/t spider bite (Jul 2014) DION QUINTANILLA MD Jul 15, 2022 08:29
[2022-07-15] MEDS: PANTOPRAZOLE 40 MG (PROTONIX) VIAL IV SCH (08:56)
[2022-07-15] MEDS: LABETALOL HCL 20 MG/4 ML VIAL IV PRN (08:56)
[2022-07-15] MEDS ORDERED: TROUGH ORDER-PHARMACY XX ONE (09:00)
[2022-07-15] MEDS: ENOXAPARIN 80 MG/0.8 ML (LOVENOX) SYR SC SCH ×2 (09:02→21:13)
--- NOTE | 2022-07-15 09:07 | Progress Note ---
Subjective Subjective/Events-last exam Pt states she is feeling okay. She says she is willing to get PEG tube again if needed. Objective Exam Last Set of Vital Signs Vital Signs Date Time Temp Pulse Resp B/P (MAP) Pulse Ox O2 Delivery O2 Flow Rate FiO2 07/15/22 08:03 92 High Flow N/C 3.00 07/15/22 08:00 36.4 07/15/22 07:08 84 07/15/22 06:22 22 148/78 (101) 07/14/22 18:50 35 Capillary Refill : Less Than 3 Seconds I&O Intake and Output 07/15/22 00:00 Intake Total 1477.5 ml Output Total 1800 ml Balance -322.5 ml Intake Oral 15 ml IV Total 1462.5 ml Output Urine Total 1800 ml General: Alert, No Acute Distress Lungs: Clear to Auscultation, Normal Air Movement Heart: Regular Rate Abdomen: Normal Bowel Sounds, Soft, No Tenderness Extremities: No Edema Neuro: Other (oriented to self only) Results/Procedures Lab Laboratory Tests 07/14/22 11:13: Glucometer 143H 07/14/22 17:29: Glucometer 162H 07/14/22 22:00: Vancomycin Level Trough 22.6H 07/15/22 00:23: Glucometer 144H 07/15/22 04:08: White Blood Count 15.0H, Red Blood Count 3.51L, Hemoglobin 10.9L, Hematocrit 33L , Mean Corpuscular Volume 94, Mean Corpuscular Hemoglobin 31, Mean Corpuscular Hemoglobin Concent 33, Red Cell Distribution Width 14.0, Platelet Count 294, Mean Platelet Volume 9.6, Immature Granulocyte % (Auto) 3, Neutrophils (%) (Auto) 84H, Lymphocytes (%) (Auto) 6L, Monocytes (%) (Auto) 7, Eosinophils (%) (Auto) 1, Basophils (%) (Auto) 0, Neutrophils # (Auto) 12.6H, Lymphocytes # (Auto) 0.8L, Monocytes # (Auto) 1.0, Eosinophils # (Auto) 0.1, Basophils # (Auto) 0.0, Immature Granulocyte # (Auto) 0.4H, Sodium Level 148H, Potassium Level 3.5L, Chloride Level 112H, Carbon Dioxide Level 26, Anion Gap 10, Blood Urea Nitrogen 31H, Creatinine 0.77, Estimat Glomerular Filtration Rate 81, BUN/Creatinine Ratio 40, Glucose Level 133H, Calcium Level 9.4, Corrected Calcium 10.4H, Phosphorus Level 2.1L, Magnesium Level 2.2, Total Bilirubin 0.8, Aspartate Amino Transf (AST/SGOT) 40H, Alanine Aminotransferase (ALT/SGPT) 49, Alkaline Phosphatase 81, Total Protein 6.7, Albumin 2.8L 07/15/22 04:30: Blood Gas Puncture Site LEFT RADIAL, Blood Gas Patient Temperature 36.7, Arterial Blood pH 7.38, Arterial Blood Partial Pressure CO2 49H, Arterial Blood Partial Pressure O2 97H, Arterial Blood HCO3 28H, Arterial Blood Total CO2 29.9, Arterial Blood Oxygen Saturation 99, Arterial Blood Base Excess 3.6H, Jerry Test YES-POS, Blood Gas Ventilator Setting NO, Blood Gas Inspired Oxygen 4L Microbiology 07/11/22 Urine Culture - Final, Complete NO GROWTH 07/11/22 MRSA Screen - Final, Complete MRSA not isolated 07/11/22 Blood Culture - Final, Complete Streptococcus pyogenes Grp A Assessment/Plan Assessment/Plan (1) Sepsis Status: Resolved Assessment & Plan: Secondary to pneumonia. LA down to normal, no end organ dysfunction other than lung where infection is primary. (2) Left lower lobe pneumonia Status: Acute Assessment & Plan: On Zosyn and Vancomycin. Concern for aspiration due to gurgling, difficulty with secretions and history of dysphagia. ST consulted. Blood cultures x 2 with GAS, nasal MRSA neg, will d/c vancomycin Qualifiers: Qualified Codes: J18.9 - Pneumonia, unspecified organism (3) Respiratory failure with hypoxia Status: Acute Assessment & Plan: Secondary to pneumonia and COPD exacerbation. Qualifiers: Qualified Codes: J96.01 - Acute respiratory failure with hypoxia (4) COPD exacerbation Status: Acute Assessment & Plan: Solumedrol, duonebs. Decreased supplemental oxygen requirement to 4 lpm this morning, will taper solumedrol. (5) COPD (chronic obstructive pulmonary disease) Status: Chronic Assessment & Plan: On chronic inhaled steroid/LABA/anticholinergic. On duonebs and steroid/LABA combo inpatient. 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 Has had gastric tubes twice in past. (7) History of stroke Status: Chronic (8) Atherosclerotic occlusive disease Status: Chronic (9) Rheumatoid arthritis Status: Chronic Assessment & Plan: Holding home Enbrel due to infection (10) Anemia Status: Chronic Qualifiers: Qualified Codes: D63.8 - Anemia in other chronic diseases classified elsewhere (11) Dysphagia Status: Chronic (12) History of pulmonary embolism Status: Chronic Assessment & Plan: On Eliquis RN TRANSPORT, on treatment dose enoxaparin due to NPO (13) DVT prophylaxis Status: Acute Assessment & Plan: Enoxaparin SATNAM MIKE MD Jul 15, 2022 09:07
--- NOTE | 2022-07-15 09:08 | Diagnostic Imaging Report ---
Indication: Respiratory failure Frontal chest obtained at 0525 a.m. compared to yesterday. There is cardiomegaly. There is central vascular congestion with interstitial edema and some patchy perihilar infiltrates. There is no pneumothorax or significant pleural fluid. Right-sided Port-A-Cath unchanged. IMPRESSION: Cardiomegaly with central vascular congestion with interstitial edema and patchy perihilar infiltrates. Dictated by: Dictated on workstation # [id number]
[2022-07-15] MEDS ORDERED: VANCOMYCIN 1250 MG/NS 250 ML IVPB IV SCH ×4 (10:00→12:00)
[2022-07-15] MEDS ORDERED: MONT-40 PO (10:52)
[2022-07-15] MEDS ORDERED: FERR-74 PO (10:52)
[2022-07-15] MEDS ORDERED: CYCL1DRO OU (10:52)
[2022-07-15] MEDS ORDERED: IPRA3AMP31 NEB (10:52)
[2022-07-15] MEDS ORDERED: GABA300C PO (10:52)
[2022-07-15] MEDS ORDERED: ESZO3TAB39 PO (10:52)
[2022-07-15] MEDS ORDERED: DICL100G13 TOP (10:52)
[2022-07-15] MEDS ORDERED: ALBU18HF2 INH (10:52)
[2022-07-15] MEDS ORDERED: ETAN50SY SQ (10:52)
[2022-07-15] MEDS ORDERED: ALB0.5V INH (11:01)
--- NOTE | 2022-07-15 11:12 | Speech Therapy Daily Note ---
Speech Daily Progress Note Subjective Date Seen by Provider: Jul 15, 2022 Time Seen by Provider: 10:45 The patient was lying in bed, resting quietly upon entrance to her room by the clinician. The patient greeted the clinician appropriately and was agreeable to participation in the dysphagia treatment session. The patient was seated upright in bed for safe swallowing. Objective At this time, the patient is receiving 3L supplemental oxygen via nasal cannula with SpO2% at 96%. The patient was scheduled for a modified barium swallowing evaluation at noon on this date. Unfortunately, a radiologist is not available on this date and the exam will need to be completed tomorrow, 07/16/22 at 1015. The patient consumed one ice chip, five teaspoons of water, four straw drinks of water, and three coated teaspoons of puree. Following the third bolus of puree, the patient politely declined additional P.O. trials regardless of increased encouragement provided. While overt s/s of suspected aspiration were not displayed, the patient grimaced with each bolus, requiring multiple swallow attempts to clear the oral cavity. Additionally, the patient's respiratory rate increased, however, returned to baseline following completion of the swallows. The patient requested long pauses between each bolus, holding her finger up to stop additional P.O. Due to the limited trials achieved, the patient's increased effort and reduced rate of P.O. intake, and the patient's overall risks for aspiration with P.O. intake (COPD, admitting diagnosis of pneumonia, prior radiation therapy to the head/neck, prior PEG tube placement), the clinician continues to recommend the current plan of care with completion of the swallow study on the subsequent treatment date. The results and recommendations were shared with the patient and the patient's RN. Assessment Assessment Current Status: Poor Progress Treatment Plan Continue Plan of Care Speech Short Term Goals Short Term Goals Short Term Goals 1. The patient will tolerate trials of the least restrictive diet consistency without s/s of suspected aspiration. Time Frame-STG: Three Days. Speech Metal Loader Goals Group Home Goals 1. The patient will tolerate the least restrictive diet consistency without s/s of suspected aspiration. Time Frame: One Week. Speech-Plan Treatment Plan Speech Therapy Treatment Plan: Continue Plan of Care Treatment Duration: Jul 14, 2022 Frequency: 3 times per week Estimated Hrs Per Day: .5 hour per day Rehab Potential: Guarded Safety Risks/Education Teaching Recipient: Patient Teaching Methods: Discussion Response to Teaching: Verbalize Understanding Education Topics Provided: Results, Recommendations Time Speech Therapy Time In: 10:45 Speech Therapy Time Out: 11:00 DATE: Jul 15, 2022 Total Billed Time: 15 Billed Treatment Time [facility] Jul 15, 2022 11:12
[2022-07-16] VITALS (7 sets, daily range): BP systolic 139–178; BP diastolic 69–96
[2022-07-16] MEDS: inSUlin ASPART (NovoLOG) 1 UNIT/0.01 ML (CHARGE PER UNIT) SC SCH ×4 (00:38→18:23)
[2022-07-16] MEDS: D5W 1000 ML IV SOLUTION 1,000 ML IV SCH (00:38)
[2022-07-16] MEDS: RT-ALBUTEROL/IPRATROPIUM 3 ML (DUONEB) VIAL INH SCH ×6 (02:41→21:43)
[2022-07-16] MEDS: HYDROmorphone 2 MG/ML VIAL (DILAUDID) IV PRN ×3 (04:33→21:58)
[2022-07-16] MEDS: PIPERACILLIN SODIUM/TAZOBACTAM 4.5 GM in NS (IVPB) 100 ML IV SCH (05:22)
[2022-07-16 05:36] LABS: BASOPHILS % (AUTO) 1 % (0-10); EOSINOPHILS % (AUTO) 0 % (0-10); HEMATOCRIT 37 % (35-52); HEMOGLOBIN 12.1 g/dL (11.5-16.0); LYMPHOCYTES % (AUTO) 11 % (12-44); MEAN CORPUSCULAR HEMOGLOBIN 31 pg (25-34); MEAN CORPUSCULAR HGB CONC 33 g/dL (32-36); MEAN CORPUSCULAR VOLUME 94 fL (80-99); MEAN PLATELET VOLUME 9.7 fL (9.0-12.2); MONOCYTES # (AUTO) 0.7 10^3/uL (0.0-1.0); MONOCYTES % (AUTO) 8 % (0-12); NEUTROPHILS # (AUTO) 6.5 10^3/uL (1.8-7.8); NEUTROPHILS % (AUTO) 75 % (42-75); PLATELET COUNT 305 10^3/uL (130-400); WHITE BLOOD COUNT 8.6 10^3/uL (4.3-11.0)
[2022-07-16 06:00] LABS: ALBUMIN 2.8 GM/DL (3.2-4.5); BILIRUBIN,TOTAL 1.1 MG/DL (0.1-1.0); CALCIUM 8.8 MG/DL (8.5-10.1); CREATININE SERUM 0.74 MG/DL (0.60-1.30); MAGNESIUM 1.6 MG/DL (1.6-2.4); PHOSPHORUS 2.3 MG/DL (2.3-4.7); POTASSIUM 2.9 MMOL/L (3.6-5.0); TOTAL PROTEIN 6.5 GM/DL (6.4-8.2)
[2022-07-16] MEDS ORDERED: POTASSIUM CL 10MEQ/50ML IVPB 50 ML IV SCH (07:15)
[2022-07-16] MEDS ORDERED: KCL 20 MEQ TAB (K-DUR) PO ONE (07:15)
[2022-07-16] MEDS: PANTOPRAZOLE 40 MG (PROTONIX) VIAL IV SCH (08:54)
[2022-07-16] MEDS: POTASSIUM CL 10MEQ/50ML IVPB 50 ML IV SCH ×4 (08:54→13:14)
[2022-07-16] MEDS: ENOXAPARIN 80 MG/0.8 ML (LOVENOX) SYR SC SCH (08:56)
[2022-07-16] MEDS: RT--FLUTICASONE/SALMETEROL 113-14 (AIRDUO RespiCLICK) IH SCH ×3 (11:15→21:43)
--- NOTE | 2022-07-16 11:44 | Diagnostic Imaging Report ---
Indication: Dysphagia. Procedure was performed in conjunction with speech pathology. Video fluoroscopy was performed during the swallowing of barium at multiple consistencies. A total of 127 seconds of fluoroscopic time was utilized. Patient ingested thin barium as well as nectar, honey and puree consistencies. There is some delay in the oral phase on all consistencies. Early spill was noted with all consistencies with laryngeal laryngeal penetration into the laryngeal vestibule. No definite aspiration was observed. The thin barium was visualized to the level of the cords. The thicker consistencies did show less early spill. Puree consistency was unremarkable. There is normal epiglottic tilt and laryngeal elevation. No aspiration was observed. IMPRESSION: Delayed oral phase with early spill and laryngeal penetration with the thin as well as nectar and honey consistencies. Penetration was observed both pre-swallow as well as during the swallow. No aspiration was observed. Dictated by: Dictated on workstation # [id number]
--- NOTE | 2022-07-16 11:49 | Progress Note ---
Subjective Subjective/Events-last exam Pt just returned from barium swallow, son reports they said she will need a tube, she says she does want that if needed. She denies concerns, says she is feeling better. Objective Exam Last Set of Vital Signs Vital Signs Date Time Temp Pulse Resp B/P (MAP) Pulse Ox O2 Delivery O2 Flow Rate FiO2 07/16/22 11:15 90 High Flow N/C 2.00 07/16/22 08:10 36.8 82 18 150/70 (96) 07/14/22 18:50 35 Capillary Refill : Less Than 3 Seconds I&O Intake and Output 07/16/22 00:00 Intake Total 1030 ml Output Total 1475 ml Balance -445 ml Intake Oral 30 ml IV Total 1000 ml Output Urine Total 1475 ml # Bowel Movements 1 General: Alert, No Acute Distress Lungs: Other (decreased air movement) Heart: Other (irregular rhythm) Neuro: Other (slow speech, dysarthric, oriented to self and location only, able to raise left arm spontaneously, has to lift right with left which she says is baseline, able to lift both legs off the chair) Psych/Mental Status: Mood NL Results/Procedures Lab Laboratory Tests 07/15/22 11:52: Glucometer 132H 07/15/22 17:49: Glucometer 142H 07/16/22 00:37: Glucometer 120H 07/16/22 05:27: White Blood Count 8.6, Red Blood Count 3.90, Hemoglobin 12.1, Hematocrit 37, M thaddeus Corpuscular Volume 94, Mean Corpuscular Hemoglobin 31, Mean Corpuscular Hemoglobin Concent 33, Red Cell Distribution Width 13.8, Platelet Count 305, Mean Platelet Volume 9.7, Immature Granulocyte % (Auto) 5, Neutrophils (%) (Auto) 75, Lymphocytes (%) (Auto) 11L, Monocytes (%) (Auto) 8, Eosinophils (%) (Auto) 0, Basophils (%) (Auto) 1, Neutrophils # (Auto) 6.5, Lymphocytes # (Auto) 1.0, Monocytes # (Auto) 0.7, Eosinophils # (Auto) 0.0, Basophils # (Auto) 0.0, Immature Granulocyte # (Auto) 0.4H, Sodium Level 146H, Potassium Level 2.9L, Chloride Level 107, Carbon Dioxide Level 29, Anion Gap 10, Blood Urea Nitrogen 23H, Creatinine 0.74, Estimat Glomerular Filtration Rate 85, BUN/Creatinine Ratio 31, Glucose Level 134H, Calcium Level 8.8, Corrected Calcium 9.8, Phosphorus Level 2.3, Magnesium Level 1.6, Total Bilirubin 1.1H, Aspartate Amino Transf (AST/SGOT) 56H, Alanine Aminotransferase (ALT/SGPT) 61H, Alkaline Phosphatase 84, Total Protein 6.5, Albumin 2.8L 07/16/22 05:47: Glucometer 113H 07/16/22 11:23: Glucometer 144H Microbiology 07/14/22 Blood Culture - Preliminary, Resulted No growth 07/11/22 Urine Culture - Final, Complete NO GROWTH 07/11/22 MRSA Screen - Final, Complete MRSA not isolated Assessment/Plan Assessment/Plan (1) Sepsis Status: Resolved Assessment & Plan: Secondary to pneumonia. LA down to normal, no end organ dysfunction other than lung where infection is primary. (2) Left lower lobe pneumonia Status: Acute Assessment & Plan: On Zosyn and Vancomycin. Concern for aspiration due to gurgling, difficulty with secretions and history of dysphagia. ST consulted. 07/15- Blood cultures x 2 with GAS, nasal MRSA neg, will d/c vancomycin Qualifiers: Qualified Codes: J18.9 - Pneumonia, unspecified organism (3) Respiratory failure with hypoxia Status: Acute Assessment & Plan: Secondary to pneumonia and COPD exacerbation. 07/16 continues to improve, down to 2 lpm supplemental oxygen this am Qualifiers: Qualified Codes: J96.01 - Acute respiratory failure with hypoxia (4) COPD exacerbation Status: Acute Assessment & Plan: Solumedrol, duonebs. Decreased supplemental oxygen requirem ent to 4 lpm this morning, will taper solumedrol. (5) COPD (chronic obstructive pulmonary disease) Status: Chronic Assessment & Plan: On chronic inhaled steroid/LABA/anticholinergic. On duonebs and steroid/LABA combo inpatient. 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 Has had gastric tubes twice in past. (7) History of stroke Status: Chronic (8) Atherosclerotic occlusive disease Status: Chronic (9) Rheumatoid arthritis Status: Chronic Assessment & Plan: Holding home Enbrel due to infection (10) Anemia Status: Chronic Qualifiers: Qualified Codes: D63.8 - Anemia in other chronic diseases classified elsewhere (11) Dysphagia Status: Chronic Assessment & Plan: Will plan to consult surgery as soon as speech recommendations available if PEG recommended. 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
--- NOTE | 2022-07-16 12:00 | Progress Note - Cardiology ---
Cardiology SOAP Progress Note Objective: I&O/Vital Signs 07/16/22 07/16/22 07/16/22 07/16/22 03:13 07:42 08:10 08:30 Temp 36.8 36.8 Pulse 89 78 82 Resp 20 18 B/P (MAP) 166/82 (110) 150/70 (96) Pulse Ox 99 99 O2 Delivery High Flow N/C High Flow N/C High Flow N/C O2 Flow Rate 2.00 2.50 2.00 2.00 07/16/22 07/16/22 07/16/22 11:15 11:21 13:24 Temp 36.2 Pulse 73 82 Resp 18 B/P (MAP) 139/69 (92) Pulse Ox 90 93 O2 Delivery High Flow N/C High Flow N/C O2 Flow Rate 2.00 2.50 07/16/22 00:00 Intake Total 0 ml Output Total 750 ml Balance -750 ml Weight (Pounds): 180 Weight (Ounces): 0.0 Weight (Calculated Kilograms): 81.661347 Skin: normal color, warm/dry Results/Procedures: Labs Laboratory Tests 07/15/22 17:49: Glucometer 142H 07/16/22 00:37: Glucometer 120H 07/16/22 05:27: White Blood Count 8.6, Red Blood Count 3.90, Hemoglobin 12.1, Hematocrit 37, Mean Corpuscular Volume 94, Mean Corpuscular Hemoglobin 31, Mean Corpuscular Hemoglobin Concent 33, Red Cell Distribution Width 13.8, Platelet Count 305, Mean Platelet Volume 9.7, Immature Granulocyte % (Auto) 5, Neutrophils (%) (Auto) 75, Lymphocytes (%) (Auto) 11L, Monocytes (%) (Auto) 8, Eosinophils (%) (Auto) 0, Basophils (%) (Auto) 1, Neutrophils # (Auto) 6.5, Lymphocytes # (Auto) 1.0, Monocytes # (Auto) 0.7, Eosinophils # (Auto) 0.0, Basophils # (Auto) 0.0, Immature Granulocyte # (Auto) 0.4H, Sodium Level 146H, Potassium Level 2.9L, Chloride Level 107, Carbon Dioxide Level 29, Anion Gap 10, Blood Urea Nitrogen 23H, Creatinine 0.74, Estimat Glomerular Filtration Rate 85, BUN/Creatinine Ratio 31, Glucose Level 134H, Calcium Level 8.8, Corrected Calcium 9.8, Phosphorus Level 2.3, Magnesium Level 1.6, Total Bilirubin 1.1H, Aspartate Amino Transf (AST/SGOT) 56H, Alanine Aminotransferase (ALT/SGPT) 61H, Alkaline Phosphatase 84, Total Protein 6.5, Albumin 2.8L 07/16/22 05:47: Glucometer 113H 07/16/22 11:23: Glucometer 144H Microbiology 07/14/22 Blood Culture - Preliminary, Resulted No growth 07/11/22 Urine Culture - Final, Complete NO GROWTH 07/11/22 MRSA Screen - Final, Complete MRSA not isolated A/P: Assessment: Pneumonia - probable aspiration Paroxysmal atrial fibrillation - unable to tolerate p.o meds - currently on Lovenox Oncology - 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 - Has had ILR since 04/06/18 at the recommendation of Dr Ruiz. No atrial flutter/fib or other arrhythmia has been documented - ILR has reached CLINICAL ACCOUNT EXECUTIVE in January 2022 (pt and family do not wish to have it removed or replaced per office visit of May 09, 2022) H/o nonspecific chest discomfort - MPI of 05/30/16 showed non ischemia or infarction and LVEF 76% - Echocardiogram of 11-16-20 showed normal global LV systolic function with an ejection fraction of approx 60-65%. Grade 1 diastolic dysfunction. 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 - Chronically occluded L ICA; 40% R ICA disease per u/s of May 2021 COPD - Managed by [facility] Rheumatoid and degenerative arthritis - managed by PCP H/O tobaccoism - quit in 2014 PAD - with history of ballooning and stent in of L SFA and common iliac in May [address] Sevilla and repeat intervention and stenting to the same artery by Dr Engel in Feb 2014. At the time of the angio by Dr Engel in Feb 2014, pt was also found to have patent bilat iliac stents. In Mar 2014 she underwent atherectomy and angioplasty of R sup fem, pop and ant tibial arteries by Dr Engel. - - - Currently, her PAD is being followed by Dr Hewitt (Summer Nair) - Severe bilat PAD seen on BRENDA of 11-25-21 H/o borderline diabetes - managed by PCP Surgeries: - S/p R TKR in December 2016 (Dr Flores). 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 S/P debridement of left shoulder d/t spider bite (Jul 2014) Mild Alk P elevation - for which eval and f/u is with her pcp and her oncologist MARJORIE EDUARDO Jul 16, 2022 12:00
--- NOTE | 2022-07-16 12:53 | ST Mod Barium Swallow ---
Speech Evaluation-General Medical Diagnosis Pneumonia Onset Date: Jul 11, 2022 Therapy Diagnosis Therapy Diagnosis: Oropharyngeal Dysphagia Precautions Precautions: Fall, Pressure Ulcer, Aspiration Precautions/Isolations: Aspiration, Fall Prevention, Pressure Ulcer Referral Referring Physician: Dr. Rausch Reason for Referral: Evaluation/Treatment Medical History Pertinent Medical History: Atrial Fib, Arthritis, COPD, CVA, Dementia, GERD, PVD, Rheumatoid Arthritis, Smoking Current History Please find pertinent past and current medical history located in the patient's clinical bedside swallowing evaluation from this admission. Speech Mod Barium Swallow Prior Level of Function Prior to admission, the patient was consuming thin liquids with soft consistencies. Oral Motor Skills Dentition Comments: Edentulous. Lingual Protrusion: Abnormal (Reduced protrusion present.) Lingual ROM: Abnormal (Reduced bilateral range of motion.) Lingual Strength: Abnormal Volitional Dry Swallow: Yes Voluntary Cough: Yes Can Clear Throat Volitionally: Yes Textures-Lateral View Lateral View Food Presentation: Thin Liquid via Spoon, Thin Liquid via Cup, Annetta Liquid via Spoon, Honey Liquid via Spoon, Pureed Solids Oral Phase Labial Closure: No Impairment (WFL) Bolus Formation Pooling L/R: Moderate Impairment Bolus Formation Placement: Moderate Impairment A/P Lingual Propulsion: Moderate Impairment Lingual Movement: Moderate Impairment The patient was able to appropriately remove bolus consistencies from a teaspoon and cup. Anterior bolus spillage was not present. The patient displayed great difficulty with bolus formation, manipulation, and posterior transfer, demonstrating spill to the lateral, inferior buccal cavities with incomplete bolus formation and transfer. Premature spillage was visualized with all liquid consistencies present into the laryngeal vestibule prior to initiation of the pharyngeal swallow (laryngeal penetration prior to the swallow). The penetration was consistently more deep with thinner consistencies, as thin liquids reached the level of the true vocal cords with suspected trace aspiration. No protective response was present by the patient in correlation to the deep laryngeal penetration. Moderate oral residue remained with all consistencies following the swallow. Pharyngeal Phase Swallow Response: Moderate Impairment Base of Tongue: Moderate Impairment Vallecular Residue: Moderate Pharyngeal Wall Residue: Mild Piriform Sinus Residue: Moderate Laryngeal Penetration: Severe The patient displayed a moderate delay of the pharyngeal swallow, with all consistencies reaching and pooling in the pyriform sinuses prior to initiation of the swallow. Laryngeal penetration continued during the swallow secondary to the delay. Impaired hyo-laryngeal excursion and laryngeal elevation were present, most likely secondary to the patient's prior radiation treatment. Complete, yet delayed, epiglottic inversion was observed. Suspected aspiration was present with thin liquids prior to and during the swallow. Moderate laryngeal penetration was present with all liquid consistencies during the swallow. No laryngeal penetration was present with puree. No aspiration was visualized with nectar thick liquid, honey-thick liquid, or puree. Moderately decreased base of tongue retraction and pharyngeal wall contraction were present. Moderate vallecular and pyriform sinus residue was visualized and minimized with a cued second dry swallow. Cricopharyngeal prominence was visualized as the esophageal region correlating with cervical vertebrae six which resulted in a slight reduction of passage of the bolus material. Mild retrograde flow was visualized from the proximal esophageal region. Summary/Impressions The patient displayed moderate oropharyngeal dysphagia characterized by poor lingual coordination, decreased airway sensation in the presence of bolus material, a delayed onset of the pharyngeal swallow, reduced laryngeal elevation, decreased hyo-laryngeal excursion, reduced base of tongue retraction, and decreased pharyngeal contractions. Deep laryngeal penetration with suspected silent aspiration (trace) was present with thin liquids. Laryngeal penetration with nectar thick liquids and honey-thick liquids were visualized. The patient is at a high risk for aspiration with all consistencies due to the reduced laryngeal and tracheal sensations displayed in the presence of bolus material. The clinician attempted contact with the floor/RN on three occasions following completion of the evaluation. The results and study were extensively discussed with the patient and the patient's son. Both individuals verbalized comprehension of the material and denied additional questions for the clinician at this time. Recommendations: - N.P.O. - Consider long-term alternative sources for nutrition, hydration, and me dication (PEG). - Continue excellent and frequent oral care to reduce the transfer of oral bacteria to the lungs should aspiration of secretions occur. - Consider completion of home health versus outpatient speech pathology to target oropharyngeal swallowing rehabilitation. As the patient was undecided re: PEG tube, the patient's son requested information about additional consistencies. If an alternative source of nutrition does not align with the patient's quality of life goals, the least aspirated consistency would be puree (PU4) with moderately thick (honey-thick) liquids. However, the clinician discussed with the patient and the patient's son, the patient remains at a high risk for aspiration with any P.O. consistency consumed and honey-thick liquids will not eliminate aspiration. The clinician was able to provide the recommendations to the patient's physician. Speech Short Term Goals Short Term Goals Short Term Goals 1. The patient will tolerate trials of the least restrictive diet consistency without s/s of suspected aspiration. Time Frame-STG: Three Days. Speech Halfway Goals Entry Specialists Goals 1. The patient will tolerate the least restrictive diet consistency without s/s of suspected aspiration. Time Frame: One Week. Speech-Plan Treatment Plan Speech Therapy Treatment Plan: Continue Plan of Care Treatment Duration: Jul 14, 2022 Frequency: 1 time per week Estimated Hrs Per Day: .25 hour per day Rehab Potential: Poor Safety Risks/Education Teaching Recipient: Patient, Family Teaching Methods: Discussion Response to Teaching: Verbalize Understanding Education Topics Provided: Results, Recommendations, Plan of Care Time Speech Therapy Time In: 10:15 Speech Therapy Time Out: 10:45 DATE: Jul 16, 2022 Total Billed Time: 30 Billed Treatment Time 1, MOD, CHERELLE BUSTOS Jul 16, 2022 12:53
--- NOTE | 2022-07-16 13:02 | Progress Note - Cardiology ---
Cardiology SOAP Progress Note Subjective: No cp or palp or syncope Swallowing remains a problem No n/v No swelling (Communication mostly through gesture and with the help or her daughter who was by her bedside) Objective: I&O/Vital Signs 07/16/22 07/16/22 07/16/22 07/16/22 01:00 01:10 01:31 03:13 Temp 36.5 36.5 36.8 Pulse 82 89 89 89 Resp 18 20 20 B/P (MAP) 172/77 (108) 168/77 (107) 166/82 (110) Pulse Ox 97 97 99 O2 Delivery High Flow N/C High Flow N/C High Flow N/C O2 Flow Rate 2.50 2.00 2.00 2.00 07/16/22 07/16/22 07/16/22 07/16/22 07:42 08:10 08:30 11:15 Temp 36.8 Pulse 78 82 Resp 18 B/P (MAP) 150/70 (96) Pulse Ox 99 90 O2 Delivery High Flow N/C High Flow N/C High Flow N/C O2 Flow Rate 2.50 2.00 2.00 07/16/22 11:21 Temp 36.2 Pulse 73 Resp 18 B/P (MAP) 139/69 (92) Pulse Ox 93 O2 Delivery High Flow N/C O2 Flow Rate 2.50 07/16/22 00:00 Intake Total 0 ml Output Total 750 ml Balance -750 ml Weight (Pounds): 180 Weight (Ounces): 0.0 Weight (Calculated Kilograms): [id number] Constitutional: AAO x 3, well-developed, well-nourished Respiratory: No accessory muscle use; chest expansion is symmetric, chest is bilaterally symmetric, other (fair to good, bilateral air entry) Cardiovascular: regular rate-rhythm, systolic murmur (soft AUREA At card base) Gastrointestional: No tender; soft; No guarding, No rebound; audible bowel sounds Extremities: No clubbing, No cyanosis, No significant edema Neurologic/Psychiatric: oriented x 3, other (moves all limbs equally) Skin: normal color, warm/dry Results/Procedures: Labs Laboratory Tests 07/15/22 17:49: Glucometer 142H 07/16/22 00:37: Glucometer 120H 07/16/22 05:27: White Blood Count 8.6, Red Blood Count 3.90, Hemoglobin 12.1, Hematocrit 37, Mean Corpuscular Volume 94, Mean Corpuscular Hemoglobin 31, Mean Corpuscular Hemoglobin Concent 33, Red Cell Distribution Width 13.8, Platelet Count 305, Mean Platelet Volume 9.7, Immature Granulocyte % (Auto) 5, Neutrophils (%) (Auto) 75, Lymphocytes (%) (Auto) 11L, Monocytes (%) (Auto) 8, Eosinophils (%) (Auto) 0, Basophils (%) (Auto) 1, Neutrophils # (Auto) 6.5, Lymphocytes # (Auto) 1.0, Monocytes # (Auto) 0.7, Eosinophils # (Auto) 0.0, Basophils # (Auto) 0.0, Immature Granulocyte # (Auto) 0.4H, Sodium Level 146H, Potassium Level 2.9L, Chloride Level 107, Carbon Dioxide Level 29, Anion Gap 10, Blood Urea Nitrogen 23H, Creatinine 0.74, Estimat Glomerular Filtration Rate 85, BUN/Creatinine Ratio 31, Glucose Level 134H, Calcium Level 8.8, Corrected Calcium 9.8, Phosphorus Level 2.3, Magnesium Level 1.6, Total Bilirubin 1.1H, Aspartate Amino Transf (AST/SGOT) 56H, Alanine Aminotransferase (ALT/SGPT) 61H, Alkaline Phosphatase 84, Total Protein 6.5, Albumin 2.8L 07/16/22 05:47: Glucometer 113H 07/16/22 11:23: Glucometer 144H Microbiology 07/14/22 Blood Culture - Preliminary, Resulted No growth 07/11/22 Urine Culture - Final, Complete NO GROWTH 07/11/22 MRSA Screen - Final, Complete MRSA not isolated A/P: Assessment: Pneumonia - probable aspiration (due to poor swalling due to sq cell CA of the floor of the mouth) Paroxysmal atrial fibrillation seen during this hospitalization (Jul 2022) - unable to tolerate p.o meds - currently on Lovenox Oncology - Recurrent pzjuc-[id number]-mouth sq cell CA that was treated with surgery and chemoradiation subsequently (completed 08/22/19) and is managed by her oncologist Dr Aguila 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 - Has had ILR since 04/06/18 at the recommendation of Dr Ruiz. No atrial flutter/fib or other arrhythmia was documented - ILR has reached [employer] in January 2022 (pt and family do not wish to have it removed or replaced per office visit of May 09, 2022). PAF documented during hosp of Jul 2022 H/o nonspecific chest discomfort - MPI of 05/30/16 showed non ischemia or infarction and LVEF 76% - Echocardiogram of 11-16-20 showed normal global LV systolic function with an ejection fraction of approx 60-65%. Grade 1 diastolic dysfunction. 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 - Chronically occluded L ICA; 40% R ICA disease per u/s of May 2021 COPD - Managed by Pulmonary Rheumatoid and degenerative arthritis - managed by PCP H/O tobaccoism - quit in 2014 PAD - with history of ballooning and stent in of L SFA and common iliac in May [address] Sevilla and repeat intervention and stenting to the same artery by Dr Engel in Feb 2014. At the time of the angio by Dr Engel in Feb 2014, pt was also found to have patent bilat iliac stents. In Mar 2014 she underwent atherectomy and angioplasty of R sup fem, pop and ant tibial arteries by Dr Engel. - - - Currently, her PAD is being followed by Dr Hewitt ([facility]) - Severe bilat PAD seen on BRENDA of 06-06-21 H/o borderline diabetes - managed by PCP Surgeries: - S/p R TKR in December 2016 (Dr Flores). 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 S/P debridement of left shoulder d/t spider bite (Jul 2014) Mild Alk P elevation - for which eval and f/u is with her pcp and her oncologist Plan: * PAF documented during this hosp but not suitable for OAC due to dyphagia. Continue anticoag with enoxaparin * Consider PEG. Then meds via PEG * iv beta-kristina until able to give oral beta-kristina * Monitor labs * Discussed with pt and her daughter JESSICASKYLAR STEWARD MD FACP FAC CCDS Jul 16, 2022 13:02
[2022-07-16] MEDS: D5W W/KCL 20 MEQ/L 1,000 ML IV SCH ×2 (14:16→17:15)
[2022-07-16] MEDS: meTOprolol 5 MG/5 ML (LOPRESSOR) VIAL IV SCH (17:10)
[2022-07-16] MEDS: hydrALAZINE (APESOLINE) 20 MG/ML VIAL IV PRN (20:13)
--- NOTE | 2022-07-16 21:48 | Consultation - Surgery ---
History of Present Illness History of Present Illness Patient Consulted On(alexa/time) 07/16/22 21:43 Date Seen by Provider: Jul 16, 2022 Time Seen by Provider: 17:18 Reason for Visit: Acute respiratory failure History of Present Illness Consult requested by Dr. Rausch for Gastrostomy tube placment. Patient is a 72 year old female who was admitted with respiratory failure, left lower lobe pneumonia. Patient having dysphagia and felt to likely be aspirating at times. She prevously had a gastrostomy tube. She is familiar with it. She has history of SCC of mouth. Patient unable to talk but actively engaged and family at bedside also providing information. Patient wanting gastrostomy tube again. Allergies and Home Medications Allergies Coded Allergies: ceftriaxone (Verified Allergy, Severe, DIFFICULTY BREATING, 07/05/19) levofloxacin (Verified Allergy, Severe, C-DIFF, 07/05/19) Patient Home Medication List Home Medication List Reviewed: Yes Albuterol Sulfate (Ventolin Hfa) 90 Mcg Hfa.aer.ad, 2 PUFF INH Q6H PRN for SHORTNESS OF BREATH, (Reported) Entered as Reported by: MANASA IBARRA on 07/15/22 1052 Last Action: Reviewed Albuterol Sulfate (Albuterol Sulfate) 2.5 Mg/0.5 Ml Vial.neb, 2.5 MG INH Q6H PRN for SHORTNESS OF BREATH, (Reported) Entered as Reported by: MANASA IBARRA on 07/15/22 1101 Last Action: Reviewed Apixaban (Eliquis) 5 Mg Tablet, 5 MG PO BID, (Reported) Entered as Reported by: JAMES WHITFIELD on 09/09/21 1220 Last Action: Reviewed Aspirin (Aspirin) 81 Mg Tab.chew, 81 MG PO Q48H, (Reported) Entered as Reported by: JAMES WHITFIELD on 09/09/21 1220 Last Action: Reviewed Budesonide/Glycopyr/Formoterol (Breztri Aerosphere Inhaler) 160 Mcg-9 Mcg-4.8 Mcg/Actuation Hfa.aer.ad, 2 PUFF IH BID, (Reported) Entered as Reported by: JAMES WHITFIELD on 09/09/21 1220 Last Action: Reviewed Cholecalciferol (Vitamin D3) (Vitamin D3) 125 Mcg Capsule, 125 MCG PO DAILY, (Reported) Entered as Reported by: JAMES WHITFIELD on 09/09/211219 Last Action: Reviewed Cyclosporine (Restasis) 0.05 % Droperette, 1 DROP OU BID, (Reported) Entered as Reported by: MANASA IBARRA on 07/15/221051 Last Action: Reviewed Diclofenac Sodium (Diclofenac Sodium) 1 % Gel..gram., 1 APPLIC TOP BID PRN for PAIN-BREAKTHROUGH, (Reported) Entered as Reported by: MANASA IBARRA on 07/15/221051 Last Action: Reviewed Duloxetine HCl (Duloxetine HCl) 60 Mg Capsule.dr, 60 MG PO BID, (Reported) Entered as Reported by: JAMES WHITFIELD on 09/09/211219 Last Action: Reviewed Eszopiclone (Eszopiclone) 3 Mg Tablet, 3 MG PO HS, (Reported) Entered as Reported by: MANASA IBARRA on 07/15/221051 Last Action: Reviewed Etanercept (Enbrel) 50 Mg/Ml (1 Ml) Syringe, 50 MG SQ SUN, (Reported) Entered as Reported by: MANASA IBARRA on 07/15/221051 Last Action: Reviewed Ferrous Sulfate (Ferrous Sulfate) 325 Mg (65 Mg Iron) Tablet, 325 MG PO Q48H, (Reported) Entered as Reported by: MANASA IBARRA on 07/15/221051 Last Action: Reviewed Gabapentin (Neurontin) 300 Mg Capsule, 300 MG PO TID, (Reported) Entered as Reported by: MANASA IBARRA on 07/15/221051 Last Action: Reviewed Hydrocodone/Acetaminophen (Hydrocodone-Acetamin 5-325 mg) 5 Mg-325 Mg Tablet, 1 EA PO DAILY, (Reported) Entered as Reported by: JAMES WHITFIELD on 09/09/211219 Last Action: Reviewed Ipratropium/Albuterol Sulfate (Iprat-Albut 0.5-3(2.5) mg/3 ml) 0.5 Mg-3 Mg (2.5 Mg Base)/3 Ml Ampul.neb, 3 ML NEB BID, (Reported) Entered as Reported by: MANASA IBARRA on 07/15/221051 Last Action: Reviewed Melatonin (Melatonin) 10 Mg Tablet, 10 MG PO HS, (Reported) Entered as Reported by: NIESHA GALLO on 07/11/221616 Last Action: Reviewed Montelukast Sodium (Montelukast Sodium) 10 Mg Tablet, 10 MG PO HS, (Reported) Entered as Reported by: MANASA IBARRA on 07/15/22 1052 Last Action: Reviewed Pravastatin Sodium (Pravastatin Sodium) 40 Mg Tablet, 40 MG PO HS, (Reported) Entered as Reported by: JAMES WHITFIELD on 09/09/211219 Last Action: Reviewed Roflumilast (Roflumilast) 500 Mcg Tablet, 500 MCG PO DAILY, (Reported) Entered as Reported by: NIESHA GALLO on 07/11/221611 Last Action: Reviewed Discontinued Medications Albuterol Sulfate (Albuterol Sulfate) 2.5 Mg/3 Ml Vial.neb, 2.5 MG NEB Q6H PRN for SHORTNESS OF BREATH, (Reported) Discontinued Reason: No Longer Taking Entered as Reported by: MAGDALENA WALLER on 10/24/15 1102 Last Action: Discontinued Albuterol Sulfate (Ventolin Hfa) 1 Puff Puff, 2 PUFF IH Q4H PRN for DYSPEPSIA, (Reported) Discontinued Reason: Duplicate Order Entered as Reported by: JAMES WHITFIELD on 09/09/211219 Last Action: Discontinued Eszopiclone (Eszopiclone) 2 Mg Tablet, 2 MG PO DAILY, (Reported) Discontinued Reason: No Longer Taking Entered as Reported by: JAMES WHITFIELD on 09/09/211219 Last Action: Discontinued Eszopiclone (Lunesta) 3 Mg Tablet, 3 MG PO HS, (Reported) Discontinued Reason: Duplicate Order Entered as Reported by: NIESHA GALLO on 07/11/221611 Last Action: Discontinued Etanercept (Enbrel) 50 Mg/1 Ml Pen.injctr, 50 MG SQ WEEK, (Reported) Discontinued Reason: Duplicate Order Entered as Reported by: JAMES WHITFIELD on 09/09/211219 Last Action: Discontinued Gabapentin (Gabapentin) 400 Mg Capsule, 300 MG PO TID, (Reported) Discontinued Reason: Duplicate Order Entered as Reported by: JAMES WHITFIELD on 09/09/211219 Last Action: Discontinued Melatonin (Melatonin) 10 Mg Tablet.er, 20 MG PO HS, (Reported) Discontinued Reason: No Longer Taking Entered as Reported by: JAMES WHITFIELD on 09/09/21 1220 Last Action: Discontinued Melatonin/Pyridoxine HCl (B6) (Melatonin 10 mg Tablet) 10 Mg-10 Mg Tab.mphase, 1 EACH PO HS, (Reported) Discontinued Reason: No Longer Taking Entered as Reported by: NIESHA GALLO on 07/11/22 1612 Last Action: Discontinued Montelukast Sodium (Montelukast Sodium) 5 Mg Tab.chew, 10 MG PO HS, (Reported) Discontinued Reason: No Longer Taking Entered as Reported by: MAGDALENA WALLER on 08/17/19 1109 Last Action: Discontinued Omeprazole (Omeprazole) 20 Mg Capsule.dr, 20 MG PO UD, (Reported) Discontinued Reason: No Longer Taking Entered as Reported by: JAMES WHITFIELD on 09/09/21 1220 Last Action: Discontinued Tiotropium [place] (Spiriva Respimat 2.5MCG/ACTUATION) 4 Gm Mist.inhal, 1 PUFF INH BID, (Reported) Discontinued Reason: No Longer Taking Entered as Reported by: TODD QUEZADA on 01/09/16 1112 Last Action: Discontinued [Iron] , 65 MG PO Q48H, (Reported) Discontinued Reason: Duplicate Order Entered as Reported by: NIESHA GALLO on 07/11/22 161 Last Action: Discontinued Past [id number]-Lpqfad-Ghaecx Hx Patient Social History Smoking Status: Former Smoker Former Smoker, Quit: Jul 13, 2014 Type Used: Cigarettes 2nd Hand Smoke Exposure: No Recent Hopitalizations: No Alcohol Use?: No Have you traveled recently?: No Immunizations Up To Date Tetanus Booster (TDap): Unknown PED Vaccines UTD: Yes Date of Pneumonia Vaccine: Jun 15, 2019 Date of Influenza Vaccine: Jun 12, 2022 Seasonal Allergies Seasonal Allergies: Yes Surgeries History of Surgeries: Yes (heart ablation, mouth cancer, feeding tube,peripheral stents;LOOP RECORDER;) Surgeries: Abdominal, Amputation, Cardiac, Joint Replacement, Orthopedic, Vascular Surgery Respiratory History of Respiratory Disorde: Yes (O2 2.5L NC AT NIGHT AND PRN;P.E. 08/16/19 ;CHRONIC D.O.E.) Respiratory Disorders: Pneumonia, Chronic Bronchitis, Pulmonary Embolism, COPD, Emphysema Cardiovascular History of Cardiac Disorders: Yes (CAROTID DISEASE-COMPLETE OCCLUSION OF L CAR OTID;PERIPHERAL STENTS;PE;DVT) Cardiac Disorders: Atrial Fibrillation, Chronic Edema/Swelling, Deep Vein T hrombosis, High Cholesterol, Hypertension, Irregular Heartbeat, Peripheral Vascular Neurological History of Neurological Disord: Yes (DYSPHAGIA, DYSARTHRIA/EXPRESSIVE APHASIA; RIGHT SIDE WEAKNESS--POST CVA) Neurological Disorders: Dementia, Stroke Reproductive System Hx Reproductive Disorders: No Sexually Transmitted Disease: No HIV/AIDS: No Female Reproductive Disorders: Denies 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 Genitourinary History of Genitourinary Disor: No Gastrointestinal History of Gastrointestinal Di: Yes (FEEDING TUBE;PANCREATITIS 2003) Gastrointestinal Disorders: Gastroesophageal Reflux, Pancreatitis, C-Diff, Hiatal Hernia, Ulcer Musculoskeletal History of Musculoskeletal Dis: Yes (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 ) Musculoskeletal Disorders: Amputee, Arthritis, Rheumatoid Arthritis Endocrine History of Endocrine Disorders: Yes Endocrine Disorders: Diabetes, Non-Insulin dep HEENT History of HEENT Disorders: Yes (GLASSES; ORAL CANCER-S/P SURGERY/CHEMO/ RADIATION) HEENT Disorders: Dysphagia, Tinnitis Loss of Vision: Bilateral Hearing Impairment: Denies Cancer History of Cancer: Yes (SKIN CANCER OF FACE; ORAL CANCER) Cancer: Skin, Oral Psychosocial History of Psychiatric Problem: Yes Behavioral Health Disorders: Sleep Difficulties, Anxiety, Depression Integumentary History of Skin or Integumenta: No Blood Transfusions History of Blood Disorders: No Adverse Reaction to a Blood Tr: No (N/A) Reviewed Nursing Assessment Reviewed/Agree w Nursing PMH: Yes Family Medical History Significant Family History: Heart Disease Family Medial History: Cancer 09 SISTER Family history: Arthritis 09 BROTHER 09 SISTER Family history: Cardiovascular disease 09 SISTER Family history: Thyroid disorder 09 SISTER Malignant neoplasm of lung 09 SISTER Review of Systems-General ROS-Unable to Obtain: patient not able to speak but active in answering follows directions. Constitutional: No chills, No diaphoresis EENTM: other (dysphagia); No blurred vision, No double vision Respiratory: No cough, No short of breath Cardiovascular: No chest pain, No palpitations Gastrointestinal: No abdominal pain, No nausea, No vomiting Genitourinary: No decreased output, No discharge Musculoskeletal: No back pain, No joint pain Skin: No change in color, No change in hair/nails Psychiatric/Neurological: Denies Anxiety, Denies Depressed, Denies Emotional Problems All Other Systems Reviewed Negative Unless Noted: Yes (Negative excepted noted.) Physical Exam-General Problems Physical Exam Vital Signs Vital Signs - First Documented 07/11/22 07/11/22 07/11/22 06:55 07:07 09:15 Temp 35.8 Pulse 106 Resp 20 B/P (MAP) 131/77 (95) Pulse Ox 78 O2 Delivery Room Air O2 Flow Rate 10.00 FiO2 70 Capillary Refill : Less Than 3 Seconds General Appearance: no apparent distress, other (ill appearing) HEENT: PERRL/EOMI, normal ENT inspection Neck: non-tender, supple Respiratory: chest non-tender, no respiratory distress, no accessory muscle use Cardiovascular: regular rate, rhythm, no JVD Gastrointestinal: non tender, soft, other (scar from old gastrostomy tube luq) Rectal: deferred Back: no CVA tenderness, no vertebral tenderness Extremities: non-tender, other (left foot partial amputation) Neurologic/Psychiatric: alert, normal mood/affect Skin: normal color, warm/dry Lymphatic: no adenopathy Data Review Labs Laboratory Tests 07/16/22 00:37: Glucometer 120H 07/16/22 05:27: White Blood Count 8.6, Red Blood Count 3.90, Hemoglobin 12.1, Hematocrit 37, Mean Corpuscular Volume 94, Mean Corpuscular Hemoglobin 31, Mean Corpuscular Hemoglobin Concent 33, Red Cell Distribution Width 13.8, Platelet Count 305, Mean Platelet Volume 9.7, Immature Granulocyte % (Auto) 5, Neutrophils (%) (Auto) 75, Lymphocytes (%) (Auto) 11L, Monocytes (%) (Auto) 8, Eosinophils (%) (Auto) 0, Basophils (%) (Auto) 1, Neutrophils # (Auto) 6.5, Lymphocytes # (Auto) 1.0, Monocytes # (Auto) 0.7, Eosinophils # (Auto) 0.0, Basophils # (Auto) 0.0, Immature Granulocyte # (Auto) 0.4H, Sodium Level 146H, Potassium Level 2.9L, Chloride Level 107, Carbon Dioxide Level 29, Anion Gap 10, Blood Urea Nitrogen 23H, Creatinine 0.74, Estimat Glomerular Filtration Rate 85, BUN/Creatinine Ratio 31, Glucose Level 134H, Calcium Level 8.8, Corrected Calcium 9.8, Phosphorus Level 2.3, Magnesium Level 1.6, Total Bilirubin 1.1H, Aspartate Amino Transf (AST/SGOT) 56H, Alanine Aminotransferase (ALT/SGPT) 61H, Alkaline Ph osphatase 84, Total Protein 6.5, Albumin 2.8L 07/16/22 05:47: Glucometer 113H 07/16/22 11:23: Glucometer 144H 07/16/22 18:20: Glucometer 128H Microbiology 07/14/22 Blood Culture - Preliminary, Resulted No growth 07/11/22 Urine Culture - Final, Complete NO GROWTH 07/11/22 MRSA Screen - Final, Complete MRSA not isolated Assessment/Plan Assessment/Plan Assessment/Plan dysphagia left lower lobe pneumonia 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 family and patient in agreement with placement, understands if not able to be placed percutaneously would need surgical intervention. patient and family in agreemnet. NPO place tomorrow. TERY MIDDLETON DO Jul 16, 2022 21:48
[2022-07-17] VITALS (13 sets, daily range): BP systolic 137–189; BP diastolic 68–96
[2022-07-17] MEDS: inSUlin ASPART (NovoLOG) 1 UNIT/0.01 ML (CHARGE PER UNIT) SC SCH ×5 (00:03→23:49)
[2022-07-17] MEDS: meTOprolol 5 MG/5 ML (LOPRESSOR) VIAL IV SCH ×5 (00:16→23:34)
[2022-07-17] MEDS: RT-ALBUTEROL/IPRATROPIUM 3 ML (DUONEB) VIAL INH SCH ×4 (02:47→21:50)
[2022-07-17] MEDS: D5W W/KCL 20 MEQ/L 1,000 ML IV SCH ×3 (03:41→23:32)
[2022-07-17] MEDS: hydrALAZINE (APESOLINE) 20 MG/ML VIAL IV PRN (03:42)
[2022-07-17] MEDS: HYDROmorphone 2 MG/ML VIAL (DILAUDID) IV PRN ×3 (03:42→23:50)
[2022-07-17 04:08] LABS: BASOPHILS % (AUTO) 0 % (0-10); EOSINOPHILS # (AUTO) 0.1 10^3/uL (0.0-0.3); EOSINOPHILS % (AUTO) 1 % (0-10); HEMATOCRIT 40 % (35-52); HEMOGLOBIN 13.2 g/dL (11.5-16.0); LYMPHOCYTES # (AUTO) 1.3 10^3/uL (1.0-4.0); LYMPHOCYTES % (AUTO) 13 % (12-44); MEAN CORPUSCULAR HEMOGLOBIN 31 pg (25-34); MEAN CORPUSCULAR HGB CONC 33 g/dL (32-36); MEAN CORPUSCULAR VOLUME 93 fL (80-99); MEAN PLATELET VOLUME 9.7 fL (9.0-12.2); MONOCYTES # (AUTO) 0.6 10^3/uL (0.0-1.0); MONOCYTES % (AUTO) 6 % (0-12); NEUTROPHILS # (AUTO) 7.6 10^3/uL (1.8-7.8); NEUTROPHILS % (AUTO) 77 % (42-75); PLATELET COUNT 327 10^3/uL (130-400); WHITE BLOOD COUNT 9.9 10^3/uL (4.3-11.0)
[2022-07-17 04:57] LABS: ALBUMIN 2.8 GM/DL (3.2-4.5); BILIRUBIN,TOTAL 0.9 MG/DL (0.1-1.0); CALCIUM 8.8 MG/DL (8.5-10.1); CREATININE SERUM 0.69 MG/DL (0.60-1.30); MAGNESIUM 1.5 MG/DL (1.6-2.4); PHOSPHORUS 1.8 MG/DL (2.3-4.7); POTASSIUM 2.9 MMOL/L (3.6-5.0); TOTAL PROTEIN 6.6 GM/DL (6.4-8.2)
--- NOTE | 2022-07-17 07:42 | Progress Note - Surgery ---
LANI GONZALEZ 07/17/22 0742: Subjective Date Seen by a Provider: Jul 17, 2022 Time Seen by a Provider: 07:37 Subjective/Events-last exam Pt resting in chair comfortably. She only responds to questions with nodding yes or no. Plan to have gastrostomy tube placed this morning due to dysphagia and feeling of aspiration. She denies N/V, SOB, chest pain, abdominal pain, night sweats. Review of Systems General: No Chills, No Night Sweats HEENT: Dysphasia Pulmonary: No Dyspnea Cardiovascular: No: Chest Pain, Edema Gastrointestinal: No: Nausea, Vomiting, Diarrhea Genitourinary: No Dysuria, No Frequency Musculoskeletal: No: leg pain Neurological: No: Weakness Objective Exam Vital Signs Date Time Temp Pulse Resp B/P (MAP) Pulse Ox O2 Delivery O2 Flow Rate FiO2 07/17/22 05:41 75 18 154/77 (102) 92 Nasal Cannula 3.00 07/17/22 03:32 36.1 82 20 189/96 (127) 92 Room Air 07/17/22 02:47 94 High Flow N/C 2.00 07/17/22 01:00 77 07/16/22 23:57 35.8 84 16 172/86 (114) 92 Nasal Cannula 2.00 07/16/22 21:45 91 High Flow N/C 2.00 07/16/22 21:00 High Flow N/C 2.00 07/16/22 20:14 36.4 87 16 176/96 (122) 91 Nasal Cannula 1.00 07/16/22 19:00 81 07/16/22 18:40 98 High Flow N/C 1.00 07/16/22 16:49 36.5 87 16 178/90 (119) 95 High Flow N/C 2.00 07/16/22 15:24 97 High Flow N/C 2.00 07/16/22 13:24 82 07/16/22 11:21 36.2 73 18 139/69 (92) 93 High Flow N/C 2.50 07/16/22 11:15 90 High Flow N/C 2.00 07/16/22 08:30 High Flow N/C 2.00 07/16/22 08:10 36.8 82 18 150/70 (96) 99 High Flow N/C 2.50 07/16/22 07:42 78 I & O 07/17/22 07:00 Intake Total 1150 ml Output Total 1950 ml Balance -800 ml Capillary Refill : Less Than 3 Seconds General Appearance: No Apparent Distress, Chronically ill, Other (Only responds to yes or no questions with nodding of head. ) HEENT: PERRL/EOMI, Pharyngeal Erythema Neck: Non Tender, Supple Respiratory: Chest Non Tender, No Accessory Muscle Use, No Respiratory Distress, Crackles, Decreased Breath Sounds Cardiovascular: Regular Rate, Rhythm, No Murmur Peripheral Pulses: 2+ Radial Pulses (R), 2+ Radial Pulses (L) Gastrointestinal: normal bowel sounds, non tender, soft, other (scar from old gastrostomy tube luq) Extremity: Normal Range of Motion, Non Tender, No Pedal Edema Neurologic/Psychiatric: Alert, No Motor/Sensory Deficits, Normal Mood/Affect Skin: Normal Color, Warm/Dry Lymphatic: No Adenopathy Results Lab Laboratory Tests 07/16/22 11:23: Glucometer 144H 07/16/22 18:20: Glucometer 128H 07/17/22 00:03: Glucometer 132H 07/17/22 04:00: White Blood Count 9.9, Red Blood Count 4.27, Hemoglobin 13.2, Hematocrit 40, Mean Corpuscular Volume 93, Mean Corpuscular Hemoglobin 31, Mean Corpuscular Hemoglobin Concent 33, Red Cell Distribution Width 13.5, Platelet Count 327, Mean Platelet Volume 9.7, Immature Granulocyte % (Auto) 3, Neutrophils (%) (Auto) 77H, Lymphocytes (%) (Auto) 13, Monocytes (%) (Auto) 6, Eosinophils (%) (Auto) 1, Basophils (%) (Auto) 0, Neutrophils # (Auto) 7.6, Lymphocytes # (Auto) 1.3, Monocytes # (Auto) 0.6, Eosinophils # (Auto) 0.1, Basophils # (Auto) 0.0, Immature Granulocyte # (Auto) 0.3H, Sodium Level 141, Potassium Level 2.9L, Chloride Level 102, Carbon Dioxide Level 30, Anion Gap 9, Blood Urea Nitrogen 17, Creatinine 0.69, Estimat Glomerular Filtration Rate 92, BUN/Creatinine Ratio 25, Glucose Level 121H, Calcium Level 8.8, Corrected Calcium 9.8, Phosphorus Level 1.8L, Magnesium Level 1.5L, Total Bilirubin 0.9, Aspartate Amino Transf (AST/SGOT) 28, Alanine Aminotransferase (ALT/SGPT) 50, Alkaline Phosphatase 86, Total Protein 6.6, Albumin 2.8L 07/17/22 05:40: Glucometer 135H Microbiology 07/14/22 Blood Culture - Preliminary, Resulted No growth 07/11/22 Urine Culture - Final, Complete NO GROWTH 07/11/22 MRSA Screen - Final, Complete MRSA not isolated Assessment/Plan Assessment/Plan Assessment/Plan dysphagia left lower lobe pneumonia anticoagulation [employer] history of scc mouth Lovenox held Plan of gastrostomy tube placement this morning. Dicussed with family and patient who are in agreement with placement, understands if not able to be placed percutaneously would need surgical intervention. Vurrently NPO TREY MARIE DO 07/17/221836: Subjective Subjective/Events-last exam Patient with no new complaints. Still with dysphagia. Currently NPO. No new com plaints. Denies n/v fever sweats chills shortness of breath or chest pain. Objective Exam General Appearance: No Apparent Distress, Chronically ill, Other (Only responds to yes or no questions with nodding of head. 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 Dicussed with family and patient who are in agreement with placement, understands if not able to be placed percutaneously would need surgical intervention. Currently NPO Supervisory-Addendum Brief Verification & Attestation Participated in pt care: history, MDM, physical Personally performed: exam, history, MDM, supervision of care Care discussed with: Medical Student Procedures: n/a Results interpretation: Verified all documentation Verification and Attestation of Medical Student E/M Service A medical student performed and documented this service in my presence. I reviewed and verified all information documented by the medical student and made modifications to such information, when appropriate. I personally performed the physical exam and medical decision making. Trey Marie, Jul 17, 2022,18:36 LANI GONZALEZ Jul 17, 2022 07:42 TREY MARIE DO Jul 17, 2022 18:37
[2022-07-17] MEDS ORDERED: POTASSIUM PHOSPHATE INJ 30 MM in NS (IVPB) 250 ML IV ONE (07:45)
[2022-07-17] MEDS ORDERED: NS IV 500 ML 500 ML IV PRN (07:45)
--- NOTE | 2022-07-17 08:31 | Speech Therapy Progress Note ---
Therapy Progress Note Speech pathology therapy on HOLD on this date due to planned placement of PEG tube. ST to resume therapy per plan of care on subsequent treatment date. CHERELLE MCCLELLAN Jul 17, 2022 08:31
[2022-07-17] MEDS: POTASSIUM CL 10MEQ/50ML IVPB 50 ML IV SCH ×6 (08:37→15:51)
[2022-07-17] MEDS: MAGNESIUM 1 GM/100 ML IVPB 100 ML IV SCH ×2 (08:37→09:39)
--- NOTE | 2022-07-17 08:53 | Progress Note - Cardiology ---
Cardiology SOAP Progress Note Subjective: Sitting up in recliner at the bedside No c/o CP, SOB or palpitations Objective: I&O/Vital Signs 07/16/22 07/16/22 07/16/22 07/17/22 21:00 21:45 23:57 01:00 Temp 35.8 Pulse 84 77 Resp 16 B/P (MAP) 172/86 (114) Pulse Ox 91 92 O2 Delivery High Flow N/C High Flow N/C Nasal Cannula O2 Flow Rate 2.00 2.00 2.00 07/17/22 07/17/22 07/17/22 07/17/22 02:47 03:32 05:41 07:00 Temp 36.1 Pulse 82 75 71 Resp 20 18 B/P (MAP) 189/96 (127) 154/77 (102) Pulse Ox 94 92 92 O2 Delivery High Flow N/C Room Air Nasal Cannula O2 Flow Rate 2.00 3.00 07/17/22 07/17/22 07:37 07:51 Temp 36.3 Pulse 78 Resp 18 B/P (MAP) 137/70 (92) Pulse Ox 92 94 O2 Delivery High Flow N/C Nasal Cannula O2 Flow Rate 3.00 3.00 07/17/22 00:00 Intake Total 1000 ml Output Total 1450 ml Balance -450 ml Weight (Pounds): 180 Weight (Ounces): 0.0 Weight (Calculated Kilograms): 81.327313 Constitutional: AAO x 3, well-developed, well-nourished Respiratory: No accessory muscle use; chest expansion is symmetric, chest is bilaterally symmetric, other (fair to good, bilateral air entry) Cardiovascular: regular rate-rhythm, systolic murmur (soft AUREA At card base) Gastrointestional: No tender; soft; No guarding, No rebound; audible bowel sounds Extremities: No clubbing, No cyanosis, No significant edema Neurologic/Psychiatric: oriented x 3, other (moves all limbs equally) Skin: normal color, warm/dry Results/Procedures: Labs Laboratory Tests 07/16/22 11:23: Glucometer 144H 07/16/22 18:20: Glucometer 128H 07/17/22 00:03: Glucometer 132H 07/17/22 04:00: White Blood Count 9.9, Red Blood Count 4.27, Hemoglobin 13.2, Hematocrit 40, Mean Corpuscular Volume 93, Mean Corpuscular Hemoglobin 31, Mean Corpuscular Hemoglobin Concent 33, Red Cell Distribution Width 13.5, Platelet Count 327, Mean Platelet Volume 9.7, Immature Granulocyte % (Auto) 3, Neutrophils (%) (Auto) 77H, Lymphocytes (%) (Auto) 13, Monocytes (%) (Auto) 6, Eosinophils (%) (Auto) 1, Basophils (%) (Auto) 0, Neutrophils # (Auto) 7.6, Lymphocytes # (Auto) 1.3, Monocytes # (Auto) 0.6, Eosinophils # (Auto) 0.1, Basophils # (Auto) 0.0, Immature Granulocyte # (Auto) 0.3H, Sodium Level 141, Potassium Level 2.9L, Chloride Level 102, Carbon Dioxide Level 30, Anion Gap 9, Blood Urea Nitrogen 17, Creatinine 0.69, Estimat Glomerular Filtration Rate 92, BUN/Creatinine Ratio 25, Glucose Level 121H, Calcium Level 8.8, Corrected Calcium 9.8, Phosphorus Level 1.8L, Magnesium Level 1.5L, Total Bilirubin 0.9, Aspartate Amino Transf (AST/SGOT) 28, Alanine Aminotransferase (ALT/SGPT) 50, Alkaline Phosphatase 86, Total Protein 6.6, Albumin 2.8L 07/17/22 05:40: Glucometer 135H Microbiology 07/14/22 Blood Culture - Preliminary, Resulted No growth 07/11/22 Urine Culture - Final, Complete NO GROWTH 07/11/22 MRSA Screen - Final, Complete MRSA not isolated Laboratory Tests 07/16/22 05:27 07/17/22 04:00 A/P: Assessment: Pneumonia - probable aspiration (due to poor swalling due to 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 - Has had ILR since 04/06/18 at the recommendation of Dr Ruiz. No atrial flutter/fib or other arrhythmia was documented - ILR has reached EDUCATIONAL CONSULTANT in January 2022 (pt and family do not wish to have it removed or replaced per office visit of May 09, 2022). PAF documented during hosp of Jul 2022 H/o nonspecific chest discomfort - MPI of 05/30/16 showed non ischemia or infarction and LVEF 76% - Echocardiogram of 11-16-20 showed normal global LV systolic function with an ejection fraction of approx 60-65%. Grade 1 diastolic dysfunction. PASP estimated to be 25-30mmHg H/o pulmonary embolism - in Aug 2019 for which she has been placed on Eliquis by Dr Abril VAUGHN - with right-sided hemiparesis and dysarthria d/t left-sided carotid occlusion in December 2014 GI - S/p gastric tube placement in January 2018 with removal - failed swallow eval and barium swallow on 07-16-21 - plan is to place PEG tube today Carotid arterial disease. - Chronically occluded L ICA; 40% R ICA disease per u/s of May 2021 COPD - Managed by Pulmonary Rheumatoid and degenerative arthritis - managed by PCP H/O tobaccoism - quit in 2014 PAD - with history of ballooning and stent in of L SFA and common iliac in May [address] Sevilla and repeat intervention and stenting to the same artery by Dr Engel in Feb 2014. At the time of the angio by Dr Engel in Feb 2014, pt was also found to have patent bilat iliac stents. In Mar 2014 she underwent atherectomy and angioplasty of R sup fem, pop and ant tibial arteries by Dr Engel. - - - Currently, her PAD is being followed by Dr Hewitt ([facility]) - Severe bilat PAD seen on BRENDA of 06-06-21 H/o borderline diabetes - managed by PCP Surgeries: - S/p R TKR in December 2016 (Dr Flores). 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 S/P debridement of left shoulder d/t spider bite (Jul 2014) Mild Alk P elevation - for which eval and f/u is with her pcp and her oncologist Plan: * PAF documented during this hosp but not suitable for OAC due to dyphagia. Continue anticoag with enoxaparin * Plan is for PEG tube placement - once PEG tube is place change IV meds to oral including change out Lovenox to Eliquis for stroke prophylaxis * iv beta-kristina until able to give oral beta-kristina * Monitor labs - replace potassium and Mag today MARJORIE EDUARDOP Jul 17, 2022 08:53
[2022-07-17] MEDS ORDERED: MAGNESIUM 1 GM/100 ML IVPB 100 ML IV SCH (09:00)
[2022-07-17] MEDS: PANTOPRAZOLE 40 MG (PROTONIX) VIAL IV SCH (09:38)
--- NOTE | 2022-07-17 10:30 | Progress Note - Cardiology ---
Cardiology SOAP Progress Note Subjective: Gen weakness Swallowing and speech difficulty as before No n/v/d No cp No shortness of breath No palp or syncope Objective: I&O/Vital Signs 07/16/22 07/17/22 07/17/22 07/17/22 23:57 01:00 02:47 03:32 Temp 35.8 36.1 Pulse 84 77 82 Resp 16 20 B/P (MAP) 172/86 (114) 189/96 (127) Pulse Ox 92 94 92 O2 Delivery Nasal Cannula High Flow N/C Room Air O2 Flow Rate 2.00 2.00 07/17/22 07/17/22 07/17/22 07/17/22 05:41 07:00 07:37 07:51 Temp 36.3 Pulse 75 71 78 Resp 18 18 B/P (MAP) 154/77 (102) 137/70 (92) Pulse Ox 92 92 94 O2 Delivery Nasal Cannula High Flow N/C Nasal Cannula O2 Flow Rate 3.00 3.00 3.00 07/17/22 00:00 Intake Total 1000 ml Output Total 1450 ml Balance -450 ml Weight (Pounds): 180 Weight (Ounces): 0.0 Weight (Calculated Kilograms): 81.585045 Constitutional: AAO x 3, well-developed, well-nourished Respiratory: No accessory muscle use; chest expansion is symmetric, chest is bilaterally symmetric, other (fair to good, bilateral air entry) Cardiovascular: regular rate-rhythm, systolic murmur (soft AUREA At card base) Gastrointestional: No tender; soft; No guarding, No rebound; audible bowel sounds Extremities: No clubbing, No cyanosis, No significant edema Neurologic/Psychiatric: oriented x 3, other (moves all limbs equally) Skin: normal color, warm/dry Results/Procedures: Labs Laboratory Tests 07/16/22 11:23: Glucometer 144H 07/16/22 18:20: Glucometer 128H 07/17/22 00:03: Glucometer 132H 07/17/22 04:00: White Blood Count 9.9, Red Blood Count 4.27, Hemoglobin 13.2, Hematocrit 40, Mean Corpuscular Volume 93, Mean Corpuscular Hemoglobin 31, Mean Corpuscular Hemoglobin Concent 33, Red Cell Distribution Width 13.5, Platelet Count 327, Mean Platelet Volume 9.7, Immature Granulocyte % (Auto) 3, Neutrophils (%) (Auto) 77H, Lymphocytes (%) (Auto) 13, Monocytes (%) (Auto) 6, Eosinophils (%) (Auto) 1, Basophils (%) (Auto) 0, Neutrophils # (Auto) 7.6, Lymphocytes # (Auto) 1.3, Monocytes # (Auto) 0.6, Eosinophils # (Auto) 0.1, Basophils # (Auto) 0.0, Immature Granulocyte # (Auto) 0.3H, Sodium Level 141, Potassium Level 2.9L, Chloride Level 102, Carbon Dioxide Level 30, Anion Gap 9, Blood Urea Nitrogen 17, Creatinine 0.69, Estimat Glomerular Filtration Rate 92, BUN/Creatinine Ratio 25, Glucose Level 121H, Calcium Level 8.8, Corrected Calcium 9.8, Phosphorus Level 1.8L, Magnesium Level 1.5L, Total Bilirubin 0.9, Aspartate Amino Transf (AST/SGOT) 28, Alanine Aminotransferase (ALT/SGPT) 50, Alkaline Phosphatase 86, Total Protein 6.6, Albumin 2.8L 07/17/22 05:40: Glucometer 135H Microbiology 07/14/22 Blood Culture - Preliminary, Resulted No growth 07/11/22 Urine Culture - Final, Complete NO GROWTH 07/11/22 MRSA Screen - Final, Complete MRSA not isolated Laboratory Tests 07/16/22 05:27 07/17/22 04:00 A/P: Assessment: Pneumonia - probable aspiration (due to poor swalling due to 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 - Has had ILR since 04/06/18 at the recommendation of Dr Ruiz. No atrial flutter/fib or other arrhythmia was documented - ILR has reached SURGICAL PATHOLOGIST in January 2022 (pt and family do not wish to have it removed or replaced per office visit of May 09, 2022). PAF documented during hosp of Jul 2022 H/o nonspecific chest discomfort - MPI of 05/30/16 showed non ischemia or infarction and LVEF 76% - Echocardiogram of 11-16-20 showed normal global LV systolic function with an ej ection fraction of approx 60-65%. Grade 1 diastolic dysfunction. PASP estimated to be 25-30mmHg H/o pulmonary embolism - in Aug 2019 for which she has been placed on Eliquis by Dr Samuels CVA - with right-sided hemiparesis and dysarthria d/t left-sided carotid occlusion in December 2014 GI - S/p gastric tube placement in January 2018 with removal - failed swallow eval and barium swallow on 07-16-21 - plan is to place PEG tube today Carotid arterial disease. - Chronically occluded L ICA; 40% R ICA disease per u/s of May 2021 COPD - Managed by [facility] Rheumatoid and degenerative arthritis - managed by PCP H/O tobaccoism - quit in 2014 PAD - with history of ballooning and stent in of L SFA and common iliac in May [address] Sevilla and repeat intervention and stenting to the same artery by Dr Engel in Feb 2014. At the time of the angio by Dr Engel in Feb 2014, pt was also found to have patent bilat iliac stents. In Mar 2014 she underwent atherectomy and angioplasty of R sup fem, pop and ant tibial arteries by Dr Engel. - - - Currently, her PAD is being followed by Dr Hewitt ([facility]) - Severe bilat PAD seen on BRENDA of 06-06-21 H/o borderline diabetes - managed by PCP Surgeries: - S/p R TKR in December 2016 (Dr Flores). 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 S/P debridement of left shoulder d/t spider bite (Jul 2014) Mild Alk P elevation - for which eval and f/u is with her pcp and her oncologist Plan: * PAF documented during this hosp but not suitable for OAC due to dyphagia. Continue anticoag with enoxaparin * Plan is for PEG tube placement - once PEG tube is place change IV meds to oral including change out Lovenox to Eliquis for stroke prophylaxis * iv beta-kristina until able to give oral beta-kristina * Monitor labs - replace potassium and Mag today SKYLAR LOPEZ MD FACP FACC CCDS Jul 17, 2022 10:30
[2022-07-17] MEDS ORDERED: LACTATED RINGERS 1,000 ML IV ONE (10:43)
[2022-07-17] MEDS: RT--FLUTICASONE/SALMETEROL 113-14 (AIRDUO RespiCLICK) IH SCH ×2 (11:16→21:50)
[2022-07-17] MEDS ORDERED: MIDAZOLAM 2 MG/2 ML (VERSED) VIAL ONE (12:21)
[2022-07-17] MEDS ORDERED: PROPOFOL INJECTION 50 ML IV ONE (12:21)
--- NOTE | 2022-07-17 12:40 | Progress Note ---
Subjective Subjective/Events-last exam Afebrile, no acute events. Plan for PEG today. Denies concerns. Objective Exam Last Set of Vital Signs Vital Signs Date Time Temp Pulse Resp B/P (MAP) Pulse Ox O2 Delivery O2 Flow Rate FiO2 07/17/22 11:30 36.3 77 18 176/85 (115) 93 Nasal Cannula 3.00 07/14/22 18:50 35 Capillary Refill : Less Than 3 Seconds I&O Intake and Output 07/16/22 23:59 Intake Total 1150 ml Output Total 2000 ml Balance -850 ml Intake Oral 0 ml IV Total 1150 ml Output Urine Total 2000 ml General: Alert, Other Lungs: Clear to Auscultation, Normal Air Movement Heart: Regular Rate Neuro: Other (dysarthric speech) Psych/Mental Status: Mood NL Results/Procedures Lab Laboratory Tests 07/16/22 18:20: Glucometer 128H 07/17/22 00:03: Glucometer 132H 07/17/22 04:00: White Blood Count 9.9, Red Blood Count 4.27, Hemoglobin 13.2, Hematocrit 40, Mean Corpuscular Volume 93, Mean Corpuscular Hemoglobin 31, Mean Corpuscular Hemoglobin Concent 33, Red Cell Distribution Width 13.5, Platelet Count 327, Mean Platelet Volume 9.7, Immature Granulocyte % (Auto) 3, Neutrophils (%) (Auto) 77H, Lymphocytes (%) (Auto) 13, Monocytes (%) (Auto) 6, Eosinophils (%) (Auto) 1, Basophils (%) (Auto) 0, Neutrophils # (Auto) 7.6, Lymphocytes # (Auto) 1.3, Monocytes # (Auto) 0.6, Eosinophils # (Auto) 0.1, Basophils # (Auto) 0.0, Immature Granulocyte # (Auto) 0.3H, Sodium Level 141, Potassium Level 2.9L, Chloride Level 102, Carbon Dioxide Level 30, Anion Gap 9, Blood Urea Nitrogen 17, Creatinine 0.69, Estimat Glomerular Filtration Rate 92, BUN/Creatinine Ratio 25, Glucose Level 121H, Calcium Level 8.8, Corrected Calcium 9.8, Phosphorus Level 1.8L, Magnesium Level 1.5L, Total Bilirubin 0.9, Aspartate Amino Transf (AST/SGOT) 28, Alanine Aminotransferase (ALT/SGPT) 50, Alkaline Phosphatase 86, Total Protein 6.6, Albumin 2.8L 07/17/22 05:40: Glucometer 135H 07/17/22 11:19: Glucometer 132H Microbiology 07/14/22 Blood Culture - Preliminary, Resulted No growth 07/11/22 Urine Culture - Final, Complete NO GROWTH 07/11/22 MRSA Screen - Final, Complete MRSA not isolated Assessment/Plan Assessment/Plan (1) Sepsis Status: Resolved Assessment & Plan: Secondary to pneumonia. LA down to normal, no end organ dysfunction other than lung where infection is primary. (2) Left lower lobe pneumonia Status: Resolved Assessment & Plan: On Zosyn and Vancomycin. Concern for aspiration due to gurgling, difficulty with secretions and history of dysphagia. ST consulted. 07/15- Blood cultures x 2 with GAS, nasal MRSA neg, will d/c vancomycin 07/17- has completed course of Zosyn. Qualifiers: Qualified Codes: J18.9 - Pneumonia, unspecified organism (3) Respiratory failure with hypoxia Status: Acute Assessment & Plan: Secondary to pneumonia and COPD exacerbation. 07/16 continues to improve, down to 2 lpm supplemental oxygen this am Qualifiers: Qualified Codes: J96.01 - Acute respiratory failure with hypoxia (4) COPD exacerbation Status: Acute Assessment & Plan: Solumedrol, duonebs on admit. s/p steroid treatment, stable. (5) COPD (chronic obstructive pulmonary disease) Status: Chronic Assessment & Plan: On chronic inhaled steroid/LABA/anticholinergic. On duonebs and steroid/LABA combo inpatient. 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 Has had gastric tubes twice in past. (7) History of stroke Status: Chronic (8) Atherosclerotic occlusive disease Status: Chronic (9) Rheumatoid arthritis Status: Chronic Assessment & Plan: Holding home Enbrel due to infection (10) Anemia Status: Chronic Qualifiers: Qualified Codes: D63.8 - Anemia in other chronic diseases classified elsewhere (11) Dysphagia Status: Chronic Assessment & Plan: Will plan to consult surgery as soon as speech recommendations available if PEG recommended. 07/17 plan for PEG placement today (12) History of pulmonary embolism Status: Chronic Assessment & Plan: On Eliquis BILL POSTER INSTALLER, on treatment dose enoxaparin due to NPO (13) DVT prophylaxis Status: Acute Assessment & Plan: Enoxaparin SATNAM MIKE MD Jul 17, 2022 12:40
[2022-07-17] MEDS ORDERED: LACTATED RINGERS 1,000 ML IV STA (12:51)
--- NOTE | 2022-07-17 15:05 | Progress Note-Post Operative ---
Post-Operative Progess Note Surgeon (s)/Dehorner (s) Surgeon JEANNE EASON DO Dehorner: Cynthia Pre-Operative Diagnosis Malnutrition Post-Operative Diagnosis same Procedure & Operative Findings Date of Procedure 07/17/22 Procedure Performed/Findings PEG tube Placement Dr. Marie, see his dictation, had the stomach insufflated while doing EGD. The light was visualized through the abdominal wall. The area was prepped and draped in sterile fashion. Local anesthetic was infiltrated in the left upper quadrant at this area where a #11 blade scalpel was used to make a small stab incision. Angiocath needle was advanced through the abdominal wall and visualized into the stomach. The needle was removed. The guidewire was inserted, which was snared, pulled out of the mouth and then the gastrostomy tube was attached to it and brought down while Dr. Marie followed with the scope. Slowly retracted the guidewire until the gastrostomy tube was in proper position in the stomach; picture taken. The PEG tube was at approximately 3-4cm and able to rotate easily but snug on abdominal wall. The skin bolster was then placed over the tube, secured and the tube was cut to length and clamped and port was attached. The area was washed and dried. Sterile bandage was applied. The patient tolerated the procedure well without any complications, and recovered in the Endo room in stable condition. Anesthesia Type IV sedation by TOE POUNDER Estimated Blood Loss Estimated blood loss (mL): scant Specimens/Packing Specimens Removed none JEANNE EASON DO Jul 17, 2022 15:05
[2022-07-17] MEDS: ARTIFICAL TEARS 0.4 ML UNIT DOSE (REFRESH PLUS) OU PRN (18:01)
[2022-07-18] VITALS (7 sets, daily range): BP systolic 135–181; BP diastolic 71–85
--- NOTE | 2022-07-18 00:35 | OPERATIVE REPORT ---
DATE OF SERVICE: 07/17/2022 PREOPERATIVE DIAGNOSES: Dysphagia, history of squamous cell carcinoma of the mouth. POSTOPERATIVE DIAGNOSES: Dysphagia, history of squamous cell carcinoma of the mouth. PROCEDURE: Esophagogastroduodenoscopy or percutaneous endoscopic gastrostomy tube placement. See Dr. Banks dictation for this portion. SURGEON: Trey Middleton DO ANESTHESIA: Per SOFT DRINK POWDER MIXER. ESTIMATED BLOOD LOSS: None. COMPLICATIONS: None. INDICATIONS: The patient is a 72-year-old female with history of squamous cell carcinoma. She has been having difficulty swallowing. The patient requested that a gastrostomy tube be placed again. She has had one previously. She understands risks and benefits of the procedure and wished to proceed. Consent was signed and placed on chart. DESCRIPTION OF PROCEDURE: The patient was taken to the operating suite and placed in the supine position. Scope was inserted in the mouth noting some irritation, and the scope was able to be inserted down the esophagus, stomach and into the duodenum without difficulty. There were no polyps, mass or ulceration of the duodenum. Scope was slowly retracted back in the stomach where it was further insufflated. Scope was retroflexed, noting a small hiatal hernia. No other pathology. Scope was returned to its normal position. Air was continued to be inserted, Dr. Banks inserted the Angiocath needle catheter. This was able to be snared. The guidewire was inserted and I snared the guidewire, which was then brought out through the mouth, attached the gastrostomy tube to it and he started to retract it back in. I followed the gastrostomy tube back through the mouth, esophagus and into the stomach and was in good location. No other pathology noted within the stomach. Scope was slowly retracted back into the esophagus. No polyps, masses or ulcerations. Scope was retracted back to completely remove, noting no other pathology. The patient tolerated the procedure well without complications, and taken to the recovery room in stable condition. Job ID: [id number] DocumentID: [id number] Dictated Date: 07/17/2022 18:57:53 Vending Machine Operator Date: 07/18/2022 00:33:00 Dictated By: TREY MIDDLETON DO [facility] PET[facility]'S HEALTH PARTNERSCarolynn
[2022-07-18] MEDS: RT-ALBUTEROL/IPRATROPIUM 3 ML (DUONEB) VIAL INH SCH ×4 (03:34→22:37)
[2022-07-18] MEDS: HYDROmorphone 2 MG/ML VIAL (DILAUDID) IV PRN (04:47)
[2022-07-18] MEDS: meTOprolol 5 MG/5 ML (LOPRESSOR) VIAL IV SCH ×3 (04:59→17:05)
[2022-07-18 05:35] LABS: BASOPHILS % (AUTO) 0 % (0-10); EOSINOPHILS # (AUTO) 0.2 10^3/uL (0.0-0.3); EOSINOPHILS % (AUTO) 2 % (0-10); HEMATOCRIT 38 % (35-52); HEMOGLOBIN 12.7 g/dL (11.5-16.0); LYMPHOCYTES # (AUTO) 1.2 10^3/uL (1.0-4.0); LYMPHOCYTES % (AUTO) 9 % (12-44); MEAN CORPUSCULAR HEMOGLOBIN 31 pg (25-34); MEAN CORPUSCULAR HGB CONC 33 g/dL (32-36); MEAN CORPUSCULAR VOLUME 93 fL (80-99); MEAN PLATELET VOLUME 10.2 fL (9.0-12.2); MONOCYTES # (AUTO) 0.5 10^3/uL (0.0-1.0); MONOCYTES % (AUTO) 4 % (0-12); NEUTROPHILS # (AUTO) 11.1 10^3/uL (1.8-7.8); NEUTROPHILS % (AUTO) 83 % (42-75); PLATELET COUNT 302 10^3/uL (130-400); WHITE BLOOD COUNT 13.4 10^3/uL (4.3-11.0)
[2022-07-18 06:15] LABS: ALBUMIN 2.6 GM/DL (3.2-4.5); BILIRUBIN,TOTAL 0.9 MG/DL (0.1-1.0); CALCIUM 8.4 MG/DL (8.5-10.1); CREATININE SERUM 0.69 MG/DL (0.60-1.30); MAGNESIUM 1.8 MG/DL (1.6-2.4); PHOSPHORUS 2.9 MG/DL (2.3-4.7); POTASSIUM 3.7 MMOL/L (3.6-5.0); TOTAL PROTEIN 6.5 GM/DL (6.4-8.2)
[2022-07-18] MEDS ORDERED: HYDROmorphone 2 MG/ML VIAL (DILAUDID) IVP ONE (06:15)
[2022-07-18] MEDS ORDERED: HYDROmorphone 2 MG/ML VIAL (DILAUDID) IV PRN (06:15)
[2022-07-18] MEDS: inSUlin ASPART (NovoLOG) 1 UNIT/0.01 ML (CHARGE PER UNIT) SC SCH ×4 (06:19→23:59)
--- NOTE | 2022-07-18 08:01 | Progress Note - Surgery ---
LANI GONZALEZ 07/18/22 0801: Subjective Date Seen by a Provider: Jul 18, 2022 Time Seen by a Provider: 07:56 Subjective/Events-last exam Pt sitting in chair comfortably. PEG tube placed yesterday, tolerating well. States she has diffuse lower abdominal pain. She had a bowel movement yesterday, denies blood. Continues to have wet cough. Denies fever, chills, N/V, chest pain, shortness of breath. Review of Systems General: No Chills, No Night Sweats HEENT: No Head Aches Pulmonary: Cough Cardiovascular: No: Chest Pain, Edema Gastrointestinal: Abdominal Pain; No: Nausea, Vomiting, Diarrhea Genitourinary: No Dysuria, No Frequency Musculoskeletal: No: leg pain Neurological: No: Weakness, Numbness Objective Exam Vital Signs Date Time Temp Pulse Resp B/P (MAP) Pulse Ox O2 Delivery O2 Flow Rate FiO2 07/18/22 07:50 36.0 68 18 181/85 (117) 96 Nasal Cannula 4.00 07/18/22 04:15 36.4 71 18 174/80 (111) 95 Nasal Cannula 4.00 07/18/22 01:00 64 07/17/22 23:35 36.3 77 18 162/78 (106) 95 Nasal Cannula 4.00 07/17/22 21:51 97 High Flow N/C 4.00 07/17/22 21:00 High Flow N/C 4.00 07/17/22 20:20 158/71 (100) 07/17/22 19:08 36.4 66 18 163/92 (115) 96 Nasal Cannula 4.00 07/17/22 19:00 70 07/17/22 16:11 36.2 77 18 147/84 (105) 95 Nasal Cannula 4.00 07/17/22 15:45 96 High Flow N/C 4.00 07/17/22 13:28 64 16 96 OxyMask 4.00 07/17/22 13:23 64 16 97 OxyMask 8.00 07/17/22 13:18 64 16 98 OxyMask 8.00 07/17/22 13:13 63 16 100 OxyMask 10.00 07/17/22 13:00 67 07/17/22 11:30 36.3 77 18 176/85 (115) 93 Nasal Cannula 3.00 07/17/22 11:13 36.3 78 94 07/17/22 09:00 94 High Flow N/C 4.00 I & O 07/18/22 07:00 Intake Total 2160 ml Output Total 925 ml Balance 1235 ml Capillary Refill : Less Than 3 Seconds General Appearance: No Apparent Distress, Chronically ill, Other (Only responds to yes or no questions with nodding of head. ) HEENT: PERRL/EOMI, Moist Mucous Membranes Neck: Non Tender, Supple Respiratory: Chest Non Tender, No Accessory Muscle Use, No Respiratory Distress, Other (productive, wet cough at rest) Cardiovascular: Regular Rate, Rhythm, No JVD, Normal Peripheral Pulses Peripheral Pulses: 2+ Radial Pulses (R), 2+ Radial Pulses (L) Gastrointestinal: soft; No guarding, No rebound; tenderness (mild lower abdominal pain to deep palpation. ), other (gastrostomy tube in place with clean and dry dressing in place. ) Extremity: Normal Range of Motion, Non Tender Neurologic/Psychiatric: Alert, Oriented x3, Normal Mood/Affect Skin: Normal Color, Warm/Dry Lymphatic: No Adenopathy Results Lab Laboratory Tests 07/17/22 11:19: Glucometer 132H 07/17/22 23:35: Glucometer 102 07/18/22 05:25: White Blood Count 13.4H, Red Blood Count 4.12, Hemoglobin 12.7, Hematocrit 38, Mean Corpuscular Volume 93, Mean Corpuscular Hemoglobin 31, Mean Corpuscular Hemoglobin Concent 33, Red Cell Distribution Width 13.5, Platelet Count 302, Mean Platelet Volume 10.2, Immature Granulocyte % (Auto) 2, Neutrophils (%) (Auto) 83H, Lymphocytes (%) (Auto) 9L, Monocytes (%) (Auto) 4, Eosinophils (%) (Auto) 2, Basophils (%) (Auto) 0, Neutrophils # (Auto) 11.1H, Lymphocytes # (Auto) 1.2, Monocytes # (Auto) 0.5, Eosinophils # (Auto) 0.2, Basophils # (Auto) 0.0, Immature Granulocyte # (Auto) 0.3H, Sodium Level 137, Potassium Level 3.7, Chloride Level 101, Carbon Dioxide Level 29, Anion Gap 7, Blood Urea Nitrogen 16, Creatinine 0.69, Estimat Glomerular Filtration Rate 92, BUN/Creatinine Ratio 23, Glucose Level 113H, Calcium Level 8.4L, Corrected Calcium 9.5, Phosphorus Level 2.9, Magnesium Level 1.8, Total Bilirubin 0.9, Aspartate Amino Transf (AST/SGOT) 46H, Alanine Aminotransferase (ALT/SGPT) 38, Alkaline Phosphatase 89, Total Protein 6.5, Albumin 2.6L Microbiology 07/16/22 MRSA Screen - Final, Complete MRSA not isolated 07/14/22 Blood Culture - Preliminary, Resulted No growth 07/11/22 Urine Culture - Final, Complete NO GROWTH Assessment/Plan Assessment/Plan Assessment/Plan dysphagia left lower lobe pneumonia anticoagulation halfway history of scc mouth PEG tube placed yesterday, tolerated procedure well. Can start tube feedings/medication through tube today. She can be d/c from a surgical standpoint. Medicine team continuing care. TREY MARIE DO 07/18/22 1454: Subjective Subjective/Events-last exam Patient tolerated peg tube placement yesterday. No significant pain. Still difficulty swallowing. Denies any new complaints. Denies n/v fever sweats chills or chest pain. Patient alert but not verbalizing. Family at bedside and no concerns. Objective Exam General Appearance: No Apparent Distress, Chronically ill, Other (Only responds to yes or no questions with nodding of head. 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 Can start tube feedings/medication through tube today. Will sign off, call if needed. Supervisory-Addendum Brief Verification & Attestation Participated in pt care: history, MDM, physical Personally performed: exam, history, MDM, supervision of care Care discussed with: Medical Student Procedures: n/a Results interpretation: Verified all documentation Verification and Attestation of Medical Student E/M Service A medical student performed and documented this service in my presence. I reviewed and verified all information documented by the medical student and made modifications to such information, when appropriate. I personally performed the physical exam and medical decision making. Trey Marie, Jul 18, 2022,14:54 LANI GONZALEZ Jul 18, 2022 08:01 TREY MARIE DO Jul 18, 2022 14:54
[2022-07-18] MEDS: RT--FLUTICASONE/SALMETEROL 113-14 (AIRDUO RespiCLICK) IH SCH ×2 (08:47→22:35)
[2022-07-18] MEDS: PANTOPRAZOLE 40 MG (PROTONIX) VIAL IV SCH (09:27)
[2022-07-18] MEDS: D5W W/KCL 20 MEQ/L 1,000 ML IV SCH ×2 (09:29→20:30)
--- NOTE | 2022-07-18 13:16 | Progress Note ---
Subjective Subjective/Events-last exam Afebrile, had PEG placed yesterday, is doing okay. Has had a fair bit of pain post-op. Objective Exam Last Set of Vital Signs Vital Signs Date Time Temp Pulse Resp B/P (MAP) Pulse Ox O2 Delivery O2 Flow Rate FiO2 07/18/22 12:59 61 07/18/22 12:12 35.6 07/18/22 11:11 18 157/72 (100) 94 Nasal Cannula 2.00 07/18/22 08:59 36 Capillary Refill : Less Than 3 Seconds I&O Intake and Output 07/18/22 00:00 Intake Total 2160 ml Output Total 1075 ml Balance 1085 ml Intake Oral 0 ml IV Total 2160 ml Tube Feeding 0 ml Output Urine Total 1075 ml # Bowel Movements 1 General: Alert, No Acute Distress Lungs: Clear to Auscultation, Normal Air Movement Heart: Regular Rate Abdomen: Normal Bowel Sounds, Other (PEG in place with green drainage in tube) Extremities: No Edema Neuro: Other (dysarthirc speech, sometimes smiles rather than answering verbally.) Psych/Mental Status: Mood NL Results/Procedures Lab Laboratory Tests 07/17/22 23:35: Glucometer 102 07/18/22 05:25: White Blood Count 13.4H, Red Blood Count 4.12, Hemoglobin 12.7, Hematocrit 38, Mean Corpuscular Volume 93, Mean Corpuscular Hemoglobin 31, Mean Corpuscular Hemoglobin Concent 33, Red Cell Distribution Width 13.5, Platelet Count 302, Mean Platelet Volume 10.2, Immature Granulocyte % (Auto) 2, Neutrophils (%) (Auto) 83H, Lymphocytes (%) (Auto) 9L, Monocytes (%) (Auto) 4, Eosinophils (%) (Auto) 2, Basophils (%) (Auto) 0, Neutrophils # (Auto) 11.1H, Lymphocytes # (Auto) 1.2, Monocytes # (Auto) 0.5, Eosinophils # (Auto) 0.2, Basophils # (Auto) 0.0, Immature Granulocyte # (Auto) 0.3H, Sodium Level 137, Potassium Level 3.7, Chloride Level 101, Carbon Dioxide Level 29, Anion Gap 7, Blood Urea Nitrogen 16, Creatinine 0.69, Estimat Glomerular Filtration Rate 92, BUN/Creatinine Ratio 23, Glucose Level 113H, Calcium Level 8.4L, Corrected Calcium 9.5, Phosphorus Level 2.9, Magnesium Level 1.8, Total Bilirubin 0.9, Aspartate Amino Transf (AST/SGOT) 46H, Alanine Aminotransferase (ALT/SGPT) 38, Alkaline Phosphatase 89, Total Protein 6.5, Albumin 2.6L 07/18/22 11:19: Glucometer 123H Microbiology 07/16/22 MRSA Screen - Final, Complete MRSA not isolated 07/14/22 Blood Culture - Preliminary, Resulted No growth 07/11/22 Urine Culture - Final, Complete NO GROWTH Assessment/Plan Assessment/Plan (1) Sepsis Status: Resolved Assessment & Plan: Secondary to pneumonia. LA down to normal, no end organ dysfunction other than lung where infection is primary. (2) Left lower lobe pneumonia Status: Resolved Assessment & Plan: On Zosyn and Vancomycin. Concern for aspiration due to gurgling, difficulty with secretions and history of dysphagia. ST consulted. 07/15- Blood cultures x 2 with GAS, nasal MRSA neg, will d/c vancomycin 07/17- has completed course of Zosyn. Qualifiers: Qualified Codes: J18.9 - Pneumonia, unspecified organism (3) Respiratory failure with hypoxia Status: Acute Assessment & Plan: Secondary to pneumonia and COPD exacerbation. 07/16 continues to improve, down to 2 lpm supplemental oxygen this am Qualifiers: Qualified Codes: J96.01 - Acute respiratory failure with hypoxia (4) COPD exacerbation Status: Acute Assessment & Plan: Solumedrol, duonebs on admit. s/p steroid treatment, stable. (5) COPD (chronic obstructive pulmonary disease) Status: Chronic Assessment & Plan: On chronic inhaled steroid/LABA/anticholinergic. On duonebs and steroid/LABA combo inpatient. 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 Has had gastric tubes twice in past. (7) History of stroke Status: Chronic (8) Atherosclerotic occlusive disease Status: Chronic (9) Rheumatoid arthritis Status: Chronic Assessment & Plan: Holding home Enbrel due to infection (10) Anemia Status: Chronic Qualifiers: Qualified Codes: D63.8 - Anemia in other chronic diseases classified elsewhere (11) Dysphagia Status: Chronic Assessment & Plan: Will plan to consult surgery as soon as speech recomm endations available if PEG recommended. 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
--- NOTE | 2022-07-18 15:01 | Progress Note - Cardiology ---
Cardiology SOAP Progress Note Subjective: Communication difficult due to patient's dyarthria No cp or palp or syncope Gen weakness No n/v/d No swelling Objective: I&O/Vital Signs 07/18/22 07/18/22 07/18/22 07/18/22 04:15 07:00 07:50 08:47 Temp 36.4 36.0 Pulse 71 64 68 Resp 18 18 B/P (MAP) 174/80 (111) 181/85 (117) Pulse Ox 95 96 94 O2 Delivery Nasal Cannula Nasal Cannula High Flow N/C O2 Flow Rate 4.00 4.00 4.00 07/18/22 07/18/22 07/18/22 07/18/22 08:52 08:52 08:59 09:00 Temp 36.0 Pulse 73 Pulse Ox 95 94 95 O2 Delivery High Flow N/C High Flow N/C High Flow N/C O2 Flow Rate 2.00 2.00 2.00 FiO2 36 07/18/22 07/18/22 07/18/22 07/18/22 11:11 11:42 12:12 12:59 Temp 35.6 35.6 35.6 Pulse 72 61 Resp 18 B/P (MAP) 157/72 (100) Pulse Ox 94 O2 Delivery Nasal Cannula O2 Flow Rate 2.00 07/18/22 00:00 Intake Total 1810 ml Output Total 575 ml Balance 1235 ml Weight (Pounds): 180 Weight (Ounces): 0.0 Weight (Calculated Kilograms): 81.035981 Constitutional: AAO x 3, well-developed, well-nourished Respiratory: No accessory muscle use; chest expansion is symmetric, chest is bilaterally symmetric, other (fair to good, bilateral air entry) Cardiovascular: regular rate-rhythm, systolic murmur (soft AUREA At card base) Gastrointestional: No tender; soft; No guarding, No rebound; audible bowel sounds Extremities: No clubbing, No cyanosis, No significant edema Neurologic/Psychiatric: oriented x 3, other (moves all limbs equally) Skin: normal color, warm/dry Results/Procedures: Labs Laboratory Tests 07/17/22 23:35: Glucometer 102 07/18/22 05:25: White Blood Count 13.4H, Red Blood Count 4.12, Hemoglobin 12.7, Hematocrit 38, Mean Corpuscular Volume 93, Mean Corpuscular Hemoglobin 31, Mean Corpuscular Hemoglobin Concent 33, Red Cell Distribution Width 13.5, Platelet Count 302, Mean Platelet Volume 10.2, Immature Granulocyte % (Auto) 2, Neutrophils (%) (Aut o) 83H, Lymphocytes (%) (Auto) 9L, Monocytes (%) (Auto) 4, Eosinophils (%) (Auto) 2, Basophils (%) (Auto) 0, Neutrophils # (Auto) 11.1H, Lymphocytes # (Auto) 1.2, Monocytes # (Auto) 0.5, Eosinophils # (Auto) 0.2, Basophils # (Auto) 0.0, Immature Granulocyte # (Auto) 0.3H, Sodium Level 137, Potassium Level 3.7, Chloride Level 101, Carbon Dioxide Level 29, Anion Gap 7, Blood Urea Nitrogen 16, Creatinine 0.69, Estimat Glomerular Filtration Rate 92, BUN/Creatinine Ratio 23, Glucose Level 113H, Calcium Level 8.4L, Corrected Calcium 9.5, Phosphorus Level 2.9, Magnesium Level 1.8, Total Bilirubin 0.9, Aspartate Amino Transf (AST/SGOT) 46H, Alanine Aminotransferase (ALT/SGPT) 38, Alkaline Phosphatase 89, Total Protein 6.5, Albumin 2.6L 07/18/22 11:19: Glucometer 123H Microbiology 07/16/22 MRSA Screen - Final, Complete MRSA not isolated 07/14/22 Blood Culture - Preliminary, Resulted No growth 07/11/22 Urine Culture - Final, Complete NO GROWTH Laboratory Tests 07/17/22 04:00 07/18/22 05:25 A/P: Assessment: Pneumonia - probable aspiration (due to poor swalling due to sq cell CA of the floor of the mouth) Paroxysmal atrial fibrillation seen during this hospitalization (Jul 2022) - unable to tolerate p.o meds - currently on Lovenox Oncology - Recurrent ykyol-lz-vob-mouth sq cell CA that was treated with surgery and chemoradiation subsequently (completed 08/22/19) and is managed by her oncologist Dr Aguila 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 - Has had ILR since 04/06/18 at the recommendation of Dr Ruiz. 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 PAF documented during hosp of Jul 2022 H/o nonspecific chest discomfort - MPI of 05/30/16 showed non ischemia or infarction and LVEF 76% - Echocardiogram of 11-16-20 showed normal global LV systolic function with an ejection fraction of approx 60-65%. Grade 1 diastolic dysfunction. 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 - Chronically occluded L ICA; 40% R ICA disease per u/s of May 2021 COPD - Managed by [facility] Rheumatoid and degenerative arthritis - managed by PCP H/O tobaccoism - quit in 2014 PAD - with history of ballooning and stent in of L SFA and common iliac in May [address] Sevilla and repeat intervention and stenting to the same artery by Dr Engel in Feb 2014. At the time of the angio by Dr Engel in Feb 2014, pt was also found to have patent bilat iliac stents. In Mar 2014 she underwent atherectomy and angioplasty of R sup fem, pop and ant tibial arteries by Dr Engel. - - - Currently, her PAD is being followed by Dr Hewitt ([facility]) - Severe bilat PAD seen on BRENDA of 06-06-21 H/o borderline diabetes - managed by PCP Surgeries: - S/p R TKR in December 2016 (Dr Flores). 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 S/P debridement of left shoulder d/t spider bite (Jul 2014) Mild Alk P elevation - for which eval and f/u is with her pcp and her oncologist Plan: * PAF documented during this hosp. We recommend that her anticoag be resumed as soon as it is acceptable to the Surgical and Medical services * iv beta-kristina until able to give oral beta-kristina * Monitor labs SKYLAR LOPEZ MD [facility] Jul 18, 2022 15:01
[2022-07-19] MEDS: meTOprolol 5 MG/5 ML (LOPRESSOR) VIAL IV SCH ×5 (00:03→23:46)
[2022-07-19 03:46] VITALS: BP 121/74
[2022-07-19 05:16] LABS: BASOPHILS % (AUTO) 0 % (0-10); EOSINOPHILS # (AUTO) 0.3 10^3/uL (0.0-0.3); EOSINOPHILS % (AUTO) 2 % (0-10); HEMATOCRIT 38 % (35-52); HEMOGLOBIN 12.7 g/dL (11.5-16.0); LYMPHOCYTES # (AUTO) 1.3 10^3/uL (1.0-4.0); LYMPHOCYTES % (AUTO) 8 % (12-44); MEAN CORPUSCULAR HEMOGLOBIN 31 pg (25-34); MEAN CORPUSCULAR HGB CONC 34 g/dL (32-36); MEAN CORPUSCULAR VOLUME 92 fL (80-99); MEAN PLATELET VOLUME 10.1 fL (9.0-12.2); MONOCYTES # (AUTO) 0.7 10^3/uL (0.0-1.0); MONOCYTES % (AUTO) 4 % (0-12); NEUTROPHILS # (AUTO) 14.9 10^3/uL (1.8-7.8); NEUTROPHILS % (AUTO) 84 % (42-75); PLATELET COUNT 322 10^3/uL (130-400); WHITE BLOOD COUNT 17.6 10^3/uL (4.3-11.0)
[2022-07-19 05:33] LABS: ALBUMIN 2.6 GM/DL (3.2-4.5); BILIRUBIN,TOTAL 1.1 MG/DL (0.1-1.0); CALCIUM 8.3 MG/DL (8.5-10.1); CREATININE SERUM 0.68 MG/DL (0.60-1.30); MAGNESIUM 1.5 MG/DL (1.6-2.4); PHOSPHORUS 2.4 MG/DL (2.3-4.7); POTASSIUM 3.5 MMOL/L (3.6-5.0); TOTAL PROTEIN 6.3 GM/DL (6.4-8.2)
[2022-07-19] MEDS: D5W W/KCL 20 MEQ/L 1,000 ML IV SCH ×2 (05:35→16:34)
[2022-07-19] MEDS: inSUlin ASPART (NovoLOG) 1 UNIT/0.01 ML (CHARGE PER UNIT) SC SCH ×4 (05:39→23:50)
[2022-07-19 06:27] LABS: LYMPHOCYTES % (MANUAL) 11 %; MONOCYTES % (MANUAL) 4 %; NEUTROPHILS % (MANUAL) 85 %; RBC MORPH NORMAL
[2022-07-19] MEDS: RT--FLUTICASONE/SALMETEROL 113-14 (AIRDUO RespiCLICK) IH SCH ×2 (07:09→19:30)
[2022-07-19] MEDS: RT-ALBUTEROL/IPRATROPIUM 3 ML (DUONEB) VIAL INH SCH ×3 (07:09→19:29)
[2022-07-19 07:39] VITALS: BP 152/77
[2022-07-19] MEDS: PANTOPRAZOLE 40 MG (PROTONIX) VIAL IV SCH (08:02)
[2022-07-19 11:16] VITALS: BP 142/67
--- NOTE | 2022-07-19 11:58 | Progress Note - Hospitalist ---
Subjective HPI/CC On Admission Date Seen by Provider: Jul 19, 2022 Chief complaint: Pneumonia with severe sepsis HPI: This is a 72-year-old female with COPD who presented to the ER with shortness of breath found to have O2 sat of 74% she was found to have pneumonia. BiPAP dependent precludes any other details. Patient will be placed in the ICU maintain on BiPAP with IV fluids and IV antibiotics and consulting Dr. Diane. Subjective/Events-last exam Patient appears to be feeling better. Has expressive aphasia so difficult to understand. Daughter at bedside feels that she is doing better as well ask about when feeding tube can be utilized it has been 48 hours since placement. I did find Dr. Marie who stated that he had signed off on the case and that the tube could be used at any time for feeding as well as medication for PEG tube liquid or crushed. Patient has had a loose cough nonproductive. Daughter at the bedside reports improvement and is hoping to take her home when she is deemed ready for discharge. Objective Exam Vital Signs Vital Signs Date Time Temp Pulse Resp B/P (MAP) Pulse Ox O2 Delivery O2 Flow Rate FiO2 07/20/22 09:11 High Flow N/C 1.00 07/20/22 09:10 96 07/20/22 07:41 36.5 72 20 104/61 (75) 07/18/22 08:59 36 Capillary Refill : Less Than 3 Seconds General Appearance: No Apparent Distress Respiratory: No Accessory Muscle Use, No Respiratory Distress, Other (Scattered rhonchi with no focal consolidative findings.) Cardiovascular: Regular Rate, Rhythm Gastrointestinal: Normal Bowel Sounds, Soft, Other ( Feeding tube site reveals no significant erythema no induration no bleeding.) Results/Procedures Lab Laboratory Tests 07/20/22 04:55 Patient resulted labs reviewed. Assessment/Plan Assessment and Plan Assess & Plan/Chief Complaint (2) Left lower lobe pneumonia Status: Resolved Assessment & Plan: On Zosyn and Vancomycin. Concern for aspiration due to gurgling, difficulty with secretions and history of dysphagia. ST consulted. 07/15- Blood cultures x 2 with GAS, nasal MRSA neg, will d/c vancomycin 07/17- has completed course of Zosyn. 07/19: Patient appears to be doing well no physical findings to suggest ongoing infection although her white count is up today. We will initiate tube feedings after discussion with Dr. Marie. Discussed with daughter all medications that can be liquid will be ordered that way but a number of her medications would need to be crushed and flushed. If tolerating tube feedings etc. potential discharge for tomorrow. We will repeat CBC and basic metabolic panel in the morning. Qualifiers: Qualified Codes: J18.9 - Pneumonia, unspecified organism (3) Respiratory failure with hypoxia Status: Acute Assessment & Plan: Secondary to pneumonia and COPD exacerbation. 07/16 continues to improve, down to 2 lpm supplemental oxygen this am Qualifiers: Qualified Codes: J96.01 - Acute respiratory failure with hypoxia (4) COPD exacerbation Status: Acute Assessment & Plan: Solumedrol, duonebs on admit. s/p steroid treatment, stable. (5) COPD (chronic obstructive pulmonary disease) Status: Chronic Assessment & Plan: On chronic inhaled steroid/LABA/anticholinergic. On duonebs and steroid/LABA combo inpatient. 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 Has had gastric tubes twice in past. (7) History of stroke Status: Chronic (8) Atherosclerotic occlusive disease Status: Chronic (9) Rheumatoid arthritis Status: Chronic Assessment & Plan: Holding home Enbrel due to infection (10) Anemia Status: Chronic Qualifiers: Qualified Codes: D63.8 - Anemia in other chronic diseases classified elsewhere (11) Dysphagia Status: Chronic Assessment & Plan: Will plan to consult surgery as soon as speech recommendations available if PEG recommended. 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
[2022-07-19] MEDS ORDERED: DIATRIZOATE MEGLUM/SODIUM 37% 120 ML (GASTROGRAFIN) NG ONE (16:00)
--- NOTE | 2022-07-19 16:25 | Diagnostic Imaging Report ---
HISTORY: PEG tube placement, start feeding. COMPARISON: None. TECHNIQUE: Frontal view of the abdomen precontrast. Frontal and lateral views of the abdomen performed following water-soluble contrast injection through the PEG tube. FINDINGS: Injection of contrast demonstrates contrast in the stomach which flows into the duodenum. No extravasation of contrast is seen. Cholecystectomy clips are noted. Leads overlie the chest. There is a right hip arthroplasty. There is contrast from prior procedure in the cecum. No distended loops of small bowel are seen. There is calcific atherosclerosis. IMPRESSION: Contrast from the PEG tube enters the stomach. No leak is seen. Dictated by: Dictated on workstation # [id number]
[2022-07-19 16:30] VITALS: BP 151/69
[2022-07-19] MEDS: ARTIFICAL TEARS 0.4 ML UNIT DOSE (REFRESH PLUS) OU PRN (16:36)
[2022-07-19 20:06] VITALS: BP 117/57
[2022-07-19 23:44] VITALS: BP 156/64
[2022-07-20] MEDS: D5W W/KCL 20 MEQ/L 1,000 ML IV SCH ×2 (01:30→02:45)
[2022-07-20] MEDS: RT-ALBUTEROL/IPRATROPIUM 3 ML (DUONEB) VIAL INH SCH ×2 (03:02→09:06)
[2022-07-20 03:27] VITALS: BP 115/56
[2022-07-20 05:05] LABS: BASOPHILS % (AUTO) 0 % (0-10); EOSINOPHILS # (AUTO) 0.2 10^3/uL (0.0-0.3); EOSINOPHILS % (AUTO) 1 % (0-10); HEMATOCRIT 36 % (35-52); HEMOGLOBIN 12.1 g/dL (11.5-16.0); LYMPHOCYTES # (AUTO) 1.6 10^3/uL (1.0-4.0); LYMPHOCYTES % (AUTO) 8 % (12-44); MEAN CORPUSCULAR HEMOGLOBIN 31 pg (25-34); MEAN CORPUSCULAR HGB CONC 34 g/dL (32-36); MEAN CORPUSCULAR VOLUME 90 fL (80-99); MEAN PLATELET VOLUME 10.4 fL (9.0-12.2); MONOCYTES % (AUTO) 5 % (0-12); NEUTROPHILS % (AUTO) 84 % (42-75); PLATELET COUNT 312 10^3/uL (130-400); WHITE BLOOD COUNT 20.3 10^3/uL (4.3-11.0)
[2022-07-20 05:25] LABS: ALBUMIN 2.6 GM/DL (3.2-4.5); CALCIUM 8.2 MG/DL (8.5-10.1); CREATININE SERUM 0.74 MG/DL (0.60-1.30); MAGNESIUM 1.4 MG/DL (1.6-2.4); PHOSPHORUS 2.4 MG/DL (2.3-4.7); POTASSIUM 3.4 MMOL/L (3.6-5.0); TOTAL PROTEIN 6.3 GM/DL (6.4-8.2)
[2022-07-20] MEDS: inSUlin ASPART (NovoLOG) 1 UNIT/0.01 ML (CHARGE PER UNIT) SC SCH ×2 (05:30→12:34)
[2022-07-20] MEDS: meTOprolol 5 MG/5 ML (LOPRESSOR) VIAL IV SCH ×2 (05:47→12:34)
[2022-07-20 07:41] VITALS: BP 104/61
[2022-07-20] MEDS: PANTOPRAZOLE 40 MG (PROTONIX) VIAL IV SCH (07:59)
[2022-07-20] MEDS: RT--FLUTICASONE/SALMETEROL 113-14 (AIRDUO RespiCLICK) IH SCH (09:06)
--- NOTE | 2022-07-20 10:50 | Progress Note - Hospitalist ---
Subjective HPI/CC On Admission Date Seen by Provider: Jul 20, 2022 Time Seen by Provider: 10:45 Chief complaint: Pneumonia with severe sepsis HPI: This is a 72-year-old female with COPD who presented to the ER with shortness of breath found to have O2 sat of 74% she was found to have pneumonia. BiPAP dependent precludes any other details. Patient will be placed in the ICU maintain on BiPAP with IV fluids and IV antibiotics and consulting Dr. Diane. Subjective/Events-last exam Patient awake and alert this morning anxious to go home son present at bedside. As she denies shortness of breath usual aches and pains no chills or fever noted. Continues to have a loose for the most part nonproductive cough. She denies dysuria denies chest pain denies abdominal pain no reported difficulty with tube feeding. Objective Exam Vital Signs Vital Signs Date Time Temp Pulse Resp B/P (MAP) Pulse Ox O2 Delivery O2 Flow Rate FiO2 07/20/22 09:11 High Flow N/C 1.00 07/20/22 09:10 96 07/20/22 07:41 36.5 72 20 104/61 (75) 07/18/22 08:59 36 Capillary Refill : Less Than 3 Seconds General Appearance: No Apparent Distress Respiratory: No Accessory Muscle Use, No Respiratory Distress, Other (Scattered rhonchi no focal consolidative findings noted no wheezing) Cardiovascular: Regular Rate, Rhythm Gastrointestinal: Normal Bowel Sounds, Soft, Other ( minimal tenderness around feeding tube site only there is no erythema or induration at the tube site. No discharge.) Extremity: No Pedal Edema, Other ( No evidence for cellulitis or significant venous insufficiency.) Results/Procedures Lab Laboratory Tests 07/20/22 04:55 Patient resulted labs reviewed. Assessment/Plan Assessment and Plan Assess & Plan/Chief Complaint (2) Left lower lobe pneumonia Status: Resolved Assessment & Plan: On Zosyn and Vancomycin. Concern for aspiration due to gurgling, difficulty with secretions and history of dysphagia. ST consulted. 07/15- Blood cultures x 2 with GAS, nasal MRSA neg, will d/c vancomycin 07/17- has completed course of Zosyn. 07/19: Patient appears to be doing well no physical findings to suggest ongoing infection although her white count is up today. We will initiate tube feedings after discussion with Dr. Marie. Discussed with daughter all medications that can be liquid will be ordered that way but a number of her medications would need to be crushed and flushed. If tolerating tube feedings etc. potential discharge for tomorrow. We will repeat CBC and basic metabolic panel in the morning. 07/20: While I had planned on discharge today the patient's white count is up to 20,000 and her sodium level is lower to 128 strongly suggesting recurrence of pneumonia. She is growing Streptococcus pyogenes on earlier blood cultures which does raise the possibility of endocarditis although this is favored to be less likely. Will repeat PA and lateral chest x-ray today get blood cultures x2 and also obtain a UA with C&S if indicated. We will likely be resuming Zosyn after the studies are done. These concerns were discussed with the son who had been planning on taking her home. Will increase tube feeding today to 1 can of Jevity 4 times daily. Qualifiers: Qualified Codes: J18.9 - Pneumonia, unspecified organism (3) Respiratory failure with hypoxia Status: Acute Assessment & Plan: Secondary to pneumonia and COPD exacerbation. 07/16 continues to improve, down to 2 lpm supplemental oxygen this am Qualifiers: Qualified Codes: J96.01 - Acute respiratory failure with hypoxia (4) COPD exacerbation Status: Acute Assessment & Plan: Solumedrol, duonebs on admit. s/p steroid treatment, stable. (5) COPD (chronic obstructive pulmonary disease) Status: Chronic Assessment & Plan: On chronic inhaled steroid/LABA/anticholinergic. On duonebs and steroid/LABA combo inpatient. 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 Has had gastric tubes twice in past. (7) History of stroke Status: Chronic (8) Atherosclerotic occlusive disease Status: Chronic (9) Rheumatoid arthritis Status: Chronic Assessment & Plan: Holding home Enbrel due to infection (10) Anemia Status: Chronic Qualifiers: Qualified Codes: D63.8 - Anemia in other chronic diseases classified elsewhere (11) Dysphagia Status: Chronic Assessment & Plan: Will plan to consult surgery as soon as speech recommendations available if PEG recommended. 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
--- NOTE | 2022-07-20 11:58 | Diagnostic Imaging Report ---
INDICATION: Leukocytosis. COMPARISON: 01/30/2020. FINDINGS: There is a right internal jugular port terminating within the SVC. The diaphragms are flattened, compatible with air trapping. There is no significant effusion. There is no dense airspace consolidation to suggest pneumonia by plain radiography. There is no pneumothorax. The heart size is appropriate. An implantable subcutaneous loop recorder is noted. The pulmonary vascularity appears normal. There is irregularity and density projecting over inferior right-sided ribs. Rib fractures are not excluded though this may be density related to life support apparatus that is external to the patient. IMPRESSION: 1. Pulmonary hyperinflation without identified pleural effusion or airspace consolidation to suggest pneumonia. 2. The irregular densities projecting over the inferior lateral right ribs are believed to most likely be artifact and related to life support apparatus projecting over the chest and external to the patient. Dictated by: Dictated on workstation # [id number]
[2022-07-20 12:26] VITALS: BP 128/61
[2022-07-20 13:07] LABS: BILIRUBIN,URINE 1+ (NEGATIVE); CLARITY,URINE CLEAR; COLOR,URINE YELLOW; GLUCOSE, URINE (UA) NEGATIVE (NEGATIVE); KETONES,URINE NEGATIVE (NEGATIVE); LEUKOCYTE ESTERASE ,URINE TRACE (NEGATIVE); NITRITE,URINE POSITIVE (NEGATIVE); PROTEIN,URINE NEGATIVE (NEGATIVE)
[2022-07-20 13:25] LABS: BACTERIA,URINE LARGE /HPF
[2022-07-20] MEDS ORDERED: AMOX400S9 PO (13:28)
[2022-07-20] MEDS ORDERED: LACT-72 PEG (13:28)
--- NOTE | 2022-07-20 13:40 | Discharge Summary ---
Diagnosis/Chief Complaint Date of Admission Jul 11, 2022 at 08:28 Date of Discharge Discharge Date: Jul 20, 2022 Admission Diagnosis Assessment: Acute hypoxic respiratory failure Pneumonia Sepsis Elevated D-dimer placed on Lovenox therapeutic dose until stable enough to do CT angiogram Former smoker Plan: BiPAP IV antibiotics High risk for intubation Lovenox [facility] Discharge Diagnosis (1) Respiratory failure with hypoxia Status: Acute (2) Left lower lobe pneumonia Status: Resolved Discharge Summary Discharge Physical Exam Allergies: Coded Allergies: ceftriaxone (Verified Allergy, Severe, DIFFICULTY BREATING, 07/05/19) levofloxacin (Verified Allergy, Severe, C-DIFF, 07/05/19) Vitals & I&Os Vital Signs Date Time Temp Pulse Resp B/P (MAP) Pulse Ox O2 Delivery O2 Flow Rate FiO2 07/20/22 13:00 73 07/20/22 12:26 36.4 18 128/61 (83) 93 High Flow N/C 1.50 07/18/22 08:59 36 General Appearance: No Apparent Distress Respiratory: No Accessory Muscle Use, No Respiratory Distress, Other (Scattered rhonchi without wheezing or focal consolidative findings.) Cardiovascular: No Murmur, Irregularly Irregular Gastrointestinal: Normal Bowel Sounds, No Organomegaly, No Pulsatile Mass, Non Tender, Soft, Other ( Unremarkable G-tube site) Skin: Other ( unremarkable right Ljrbgu-i-Fkpr site no tenderness no erythema or induration) Hospital Course Was the Problem List Reviewed?: Yes tatus: Resolved Assessment & Plan: Secondary to pneumonia. LA down to normal, no end organ dysfunction other than lung where infection is primary. (2) Left lower lobe pneumonia Status: Resolved Assessment & Plan: On Zosyn and Vancomycin. Concern for aspiration due to gurgling, difficulty with secretions and history of dysphagia. ST consulted. 07/15- Blood cultures x 2 with GAS, nasal MRSA neg, will d/c vancomycin 07/17- has completed course of Zosyn. Qualifiers: Qualified Codes: J18.9 - Pneumonia, unspecified organism (3) Respiratory failure with hypoxia Status: Acute Assessment & Plan: Secondary to pneumonia and COPD exacerbation. 07/16 continues to improve, down to 2 lpm supplemental oxygen this am Qualifiers: Qualified Codes: J96.01 - Acute respiratory failure with hypoxia (4) COPD exacerbation Status: Acute Assessment & Plan: Solumedrol, duonebs on admit. s/p steroid treatment, stable. (5) COPD (chronic obstructive pulmonary disease) Status: Chronic Assessment & Plan: On chronic inhaled steroid/LABA/anticholinergic. On duonebs and steroid/LABA combo inpatient. 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 Has had gastric tubes twice in past. (7) History of stroke Status: Chronic (8) Atherosclerotic occlusive disease Status: Chronic (9) Rheumatoid arthritis Status: Chronic Assessment & Plan: Holding home Enbrel due to infection (10) Anemia Status: Chronic Qualifiers: Qualified Codes: D63.8 - Anemia in other chronic diseases classified elsewhere (11) Dysphagia Status: Chronic Assessment & Plan: Will plan to consult surgery as soon as speech recommendations available if PEG recommended. 07/17 plan for PEG placement today 07/18 s/p PEG, will await Surgical clearance to begin use (12) History of pulmonary embolism Status: Chronic Assessment & Plan: On Eliquis [employer], on treatment dose enoxaparin due to NPO (13) DVT prophylaxis Status: Acute Assessment & Plan: Enoxaparin 07/20: I advised the family and the patient to hold off on discharge due to the fact that her white count was up to 20,000 and her sodium was down several points to 128. We did repeat a chest x-ray which did not reveal evidence for pneumonia and while her UA had large bacteria as she only had 0-2 white cells. As she did grow out Streptococcus pyogenes from her blood culture discussed concerns for either central line infection endocarditis or both. She voices understanding and will take this risk. She was tolerating Jevity so we will discharge on 1 can of the 1.5 Scotty per cc strength 4 times a day with 6 ounces of free water 4 times a day. During this hospital stay she did fail modified barium swallow eval. She was advised to follow-up with community health next week and family was warned about significant risk for return of infection potentially life-threatening either during or after discontinuance of 10 days of amoxicillin which she is being discharged on. Labs (last 24 hrs) Laboratory Tests 07/19/22 18:08: Glucometer 105 07/19/22 23:49: Glucometer 95 07/20/22 04:55: White Blood Count 20.3H, Red Blood Count 3.94, Hemoglobin 12.1, Hematocrit 36, Mean Corpuscular Volume 90, Mean Corpuscular Hemoglobin 31, Mean Corpuscular Hemoglobin Concent 34, Red Cell Distribution Width 13.3, Platelet Count 312, Mean Platelet Volume 10.4, Immature Granulocyte % (Auto) 2, Neutrophils (%) (Auto) 84H, Lymphocytes (%) (Auto) 8L, Monocytes (%) (Auto) 5, Eosinophils (%) (Auto) 1, Basophils (%) (Auto) 0, Neutrophils # (Auto) 17.0H, Lymphocytes # (Auto) 1.6, Monocytes # (Auto) 1.0, Eosinophils # (Auto) 0.2, Basophils # (Auto) 0.0, Immature Granulocyte # (Auto) 0.4H, Sodium Level 128L, Potassium Level 3.4L , Chloride Level 95L, Carbon Dioxide Level 24, Anion Gap 9, Blood Urea Nitrogen 9, Creatinine 0.74, Estimat Glomerular Filtration Rate 85, BUN/Creatinine Ratio 12, Glucose Level 123H, Calcium Level 8.2L, Corrected Calcium 9.3, Phosphorus Level 2.4, Magnesium Level 1.4L, Total Bilirubin 1.0, Aspartate Amino Transf (AST/SGOT) 30, Alanine Aminotransferase (ALT/SGPT) 36, Alkaline Phosphatase 217H , Total Protein 6.3L, Albumin 2.6L 07/20/22 05:07: Glucometer 131H 07/20/22 10:53: Urine Color YELLOW, Urine Clarity CLEAR, Urine pH 7.0, Urine Specific [place] <=1.005, Urine Protein NEGATIVE, Urine Glucose (UA) NEGATIVE, Urine Ketones NEGATIVE, Urine Nitrite POSITIVEH, Urine Bilirubin 1+H, Urine Urobilinogen 0.2, Urine Leukocyte Esterase TRACEH, Urine RBC (Auto) 1+H, Urine RBC 2-5H, Urine WBC 2-5, Urine Squamous Epithelial Cells 2-5, Urine Crystals NONE, Urine Bacteria LARGEH, Urine Casts NONE, Urine Mucus NEGATIVE, Urine Culture Indicated YES 07/20/22 12:32: Glucometer 94 Microbiology 07/16/22 MRSA Screen - Final, Complete MRSA not isolated 07/14/22 Blood Culture - Final, Complete No growth 07/11/22 Urine Culture - Final, Complete NO GROWTH Patient resulted labs reviewed. Pending Labs Laboratory Tests 07/20/22 10:53: Urine Color YELLOW, Urine Clarity CLEAR, Urine pH 7.0, Urine Specific [place] <=1.005, Urine Protein NEGATIVE, Urine Glucose (UA) NEGATIVE, Urine Ketones NEGATIVE, Urine Nitrite POSITIVE, Urine Bilirubin 1+, Urine Urobilinogen 0.2, Urine Leukocyte Esterase TRACE, Urine RBC (Auto) 1+, Urine RBC 2-5, Urine WBC 2- 5, Urine Squamous Epithelial Cells 2-5, Urine Crystals NONE, Urine Bacteria LARGE, Urine Casts NONE, Urine Mucus NEGATIVE, Urine Culture Indicated YES 07/20/22 12:32: Glucometer 94 Discussion & Recommendations Discharge Planning: >30 minutes discharge planning Discharge Home Medications: Active Scripts Active Amoxicillin 400 Mg/5 Ml Susp.recon 400 Mg PO TID 10 Days Jevity 1.5 Scotty Liquid (Lactose-Reduced Food/Fiber) 0.06 Gram-1.5 Kcal/Ml Liquid 1 Each PEG QID 5 CAN PER DAY PER PEGTUBE (0700, 1000, 1300, 1600, 1900) Reported Albuterol Sulfate 2.5 Mg/0.5 Ml Vial.neb 2.5 Mg INH Q6H PRN Iprat-Albut 0.5-3(2.5) mg/3 ml (Ipratropium/Albuterol Sulfate) 0.5 Mg-3 Mg (2.5 Mg Base)/3 Ml Ampul.neb 3 Ml NEB BID LAST FILLED 01-28-2022 #180/90 DAY SUPPLY Ferrous Sulfate 325 Mg (65 Mg Iron) Tablet 325 Mg PO Q48H Ventolin Hfa (Albuterol Sulfate) 90 Mcg Hfa.aer.ad 2 Puff INH Q6H PRN Montelukast Sodium 10 Mg Tablet 10 Mg PO HS Diclofenac Sodium 1 % Gel..gram. 1 Applic TOP BID PRN APPLIES TO LEFT KNEE/LOWER RIGHT LEG/HANDS NEEDED Restasis (Cyclosporine) 0.05 % Droperette 1 Drop OU BID Neurontin (Gabapentin) 300 Mg Capsule 300 Mg PO TID Eszopiclone 3 Mg Tablet 3 Mg PO HS Enbrel (Etanercept) 50 Mg/Ml (1 Ml) Syringe 50 Mg SQ SUN Melatonin 10 Mg Tablet 10 Mg PO HS Roflumilast 500 Mcg Tablet 500 Mcg PO DAILY Vitamin D3 (Cholecalciferol (Vitamin D3)) 125 Mcg Capsule 125 Mcg PO DAILY Pravastatin Sodium 40 Mg Tablet 40 Mg PO HS Hydrocodone-Acetamin 5-325 mg (Hydrocodone/Acetaminophen) 5 Mg-325 Mg Tablet 1 Ea PO DAILY Eliquis (Apixaban) 5 Mg Tablet 5 Mg PO BID Duloxetine HCl 60 Mg Capsule.dr 60 Mg PO BID Breztri Aerosphere Inhaler (Budesonide/Glycopyr/Formoterol) 160 Mcg-9 Mcg-4.8 Mcg/Actuation Hfa.aer.ad 2 Puff IH BID Aspirin 81 Mg Tab.chew 81 Mg PO Q48H Instructions to patient/family Please see electronic discharge instructions given to patient. Problem Qualifiers (1) Respiratory failure with hypoxia: Chronicity: acute Qualified Codes: J96.01 - Acute respiratory failure with hypoxia (2) Left lower lobe pneumonia: Pneumonia type: due to unspecified organism Qualified Codes: J18.9 - Pneumonia, unspecified organism ANTWON GOODRICH MD Jul 20, 2022 13:40
[2022-07-20 14:38] VITALS: BP 128/61
[2022-07-21] MEDS ORDERED: CLONIDINE PATCH REMOVAL TP SCH (08:59)
== END 2022-07-20 14:15 | disposition home or self-care (01) | DRG 871 ==
LOC: EDUNIT# 06:44 → ER 06:46 → ICU 08:28 → 4TH 07-16 00:56
PROVIDERS: ADMIT Internal Medicine; ATTEND Internal Medicine
PROC: 5A09357 Assistance with Respiratory Ventilation, Less than 24 Consecutive Hours, Continuous Positive Airway Pressure (ICD-10-PCS; 2022-07-11)
PROC: 5A0945A Assistance with Respiratory Ventilation, 24-96 Consecutive Hours, High Flow/Velocity Cannula (ICD-10-PCS; 2022-07-11)
PROC: 0DH63UZ Insertion of Feeding Device into Stomach, Percutaneous Approach (ICD-10-PCS; principal; 2022-07-17 12:42)
DX: A40.0 Sepsis due to streptococcus, group A (principal); J18.9 Pneumonia, unspecified organism; R65.21 Severe sepsis with septic shock; J69.0 Pneumonitis due to inhalation of food and vomit; J96.01 Acute respiratory failure with hypoxia; E46 Unspecified protein-calorie malnutrition; E87.0 Hyperosmolality and hypernatremia; I69.351 Hemiplegia and hemiparesis following cerebral infarction affecting right dominant side; I11.0 Hypertensive heart disease with heart failure; I50.9 Heart failure, unspecified; Z68.27 Body mass index [BMI] 27.0-27.9, adult; J43.9 Emphysema, unspecified; I48.0 Paroxysmal atrial fibrillation; I69.391 Dysphagia following cerebral infarction; I69.322 Dysarthria following cerebral infarction; I69.320 Aphasia following cerebral infarction; R13.10 Dysphagia, unspecified; F03.90 Unspecified dementia, unspecified severity, without behavioral disturbance, psychotic disturbance, mood disturbance, and anxiety; K21.9 Gastro-esophageal reflux disease without esophagitis; M06.9 Rheumatoid arthritis, unspecified; E11.9 Type 2 diabetes mellitus without complications; I73.9 Peripheral vascular disease, unspecified; I65.23 Occlusion and stenosis of bilateral carotid arteries; F41.9 Anxiety disorder, unspecified; F32.A Depression, unspecified; H54.3 Unqualified visual loss, both eyes; Z89.432 Acquired absence of left foot; Z86.718 Personal history of other venous thrombosis and embolism; Z79.01 Long term (current) use of anticoagulants; Z86.711 Personal history of pulmonary embolism; Z87.891 Personal history of nicotine dependence; Z95.820 Peripheral vascular angioplasty status with implants and grafts; Z85.819 Personal history of malignant neoplasm of unspecified site of lip, oral cavity, and pharynx; Z88.1 Allergy status to other antibiotic agents; Z79.82 Long term (current) use of aspirin; Z20.822 Contact with and (suspected) exposure to COVID-19
CPT/HCPCS: 36415; 36600; 49465; 71045; 71046; 74230; 80053; 80202; 81000; 82805; 82947; 83605; 83735; 83880; 84100; 84145; 84484; 85007; 85025; 85027; 85379; 85610; 85730; 86141; 87040; 87081; 87088; 87636; 93005; 93306; 94640; 94660; 94760; 96361; 96365; 96375

== ENCOUNTER 2022-07-21 11:37 | Emergency (ER) | payer OTHER, MEDICAID ==
[~2022-07-21] VITALS: Ht 160 cm; Wt 72.5 kg
[~2022-07-21 11:37] MED LIST changes: +ALB0.5V INH; +ALBU18HF2 INH; +AMOX400S9 PO; +CYCL1DRO OU; +DICL100G13 TOP; +ESZO3TAB30 PO; +ESZO3TAB39 PO; +FERR-74 PO; +GABA300C PO; +IPRA3AMP31 NEB; +IRON PO; +LACT-72 PEG; +MELA10TA2 PO; +MELA1TAB20 PO; +ROFL500T9 PO
--- NOTE | 2022-07-21 11:41 | ED Lower Extremity ---
General Chief Complaint: Lower Extremity Stated Complaint: RT FOOT INJ Source: patient, EMS Exam Limitations: no limitations (LULÚ CAMERON APRN) History of Present Illness Date Seen by Provider: Jul 21, 2022 Time Seen by Provider: 11:35 Initial Comments History obtained from patient and EMS. Patient has difficulty speaking secondary to history of oral and throat cancer that has required radiation therapy in the past. This did complicate obtaining history from patient. Patient is a 72-year-old female who presents to the emergency department via EMS for evaluation of right foot pain that occurred when she struck her right foot against the closet door. She utilizes a power scooter to get around. The injury occurred last night. She denies any other pain or injury at this time. EMS state patient was stable in route. (LULÚ CAMERON APRN) Allergies and Home Medications Allergies Coded Allergies: ceftriaxone (Verified Allergy, Severe, DIFFICULTY BREATING, 07/05/19) levofloxacin (Verified Allergy, Severe, C-DIFF, 07/05/19) Patient Home Medication List Home Medication List Reviewed: Yes (LULÚ CAMERON APRN) Albuterol Sulfate (Ventolin Hfa) 90 Mcg Hfa.aer.ad, 2 PUFF INH Q6H PRN for SHORTNESS OF BREATH, (Reported) Entered as Reported by: MANASA IBARRA on 07/15/22 1052 Albuterol Sulfate (Albuterol Sulfate) 2.5 Mg/0.5 Ml Vial.neb, 2.5 MG INH Q6H PRN for SHORTNESS OF BREATH, (Reported) Entered as Reported by: MANASA IBARRA on 07/15/22 1101 Amoxicillin (Amoxicillin) 400 Mg/5 Ml Susp.recon, 400 MG PO TID Prescribed by: ANTWON GOODRICH on 07/20/22 1328 Apixaban (Eliquis) 5 Mg Tablet, 5 MG PO BID, (Reported) Entered as Reported by: JAMES WHITFIELD on 09/09/21 1220 Aspirin (Aspirin) 81 Mg Tab.chew, 81 MG PO Q48H, (Reported) Entered as Reported by: JAMES WHITFIELD on 09/09/21 1220 Budesonide/Glycopyr/Formoterol (Breztri Aerosphere Inhaler) 160 Mcg-9 Mcg-4.8 Mcg/Actuation Hfa.aer.ad, 2 PUFF IH BID, (Reported) Entered as Reported by: JAMES WHITFIELD on 09/09/21 1220 Cholecalciferol (Vitamin D3) (Vitamin D3) 125 Mcg Capsule, 125 MCG PO DAILY, (Reported) Entered as Reported by: JAMES WHITFIELD on 09/09/21 122 Cyclosporine (Restasis) 0.05 % Droperette, 1 DROP OU BID, (Reported) Entered as Reported by: MANASA IBARRA on 07/15/22 1052 Diclofenac Sodium (Diclofenac Sodium) 1 % Gel..gram., 1 APPLIC TOP BID PRN for PAIN-BREAKTHROUGH, (Reported) Entered as Reported by: MANASA IBARRA on 07/15/22 105 Etanercept (Enbrel) 50 Mg/Ml (1 Ml) Syringe, 50 MG SQ SUN, (Reported) Entered as Reported by: MANASA IBARRA on 07/15/22 105 Hydrocodone/Acetaminophen (Hydrocodone-Acetamin 5-325 mg) 5 Mg-325 Mg Tablet, 1 EA PO DAILY, (Reported) Entered as Reported by: JAMES WHITFIELD on 09/09/21 1220 Ipratropium/Albuterol Sulfate (Iprat-Albut 0.5-3(2.5) mg/3 ml) 0.5 Mg-3 Mg (2.5 Mg Base)/3 Ml Ampul.neb, 3 ML NEB BID, (Reported) Entered as Reported by: MANASA IBARRA on 07/15/22 1052 Lactose-Reduced Food/Fiber (Jevity 1.5 Scotty Liquid) 0.06 Gram-1.5 Kcal/Ml Liquid, 1 EACH PEG QID Prescribed by: ANTWON GOODRICH on 07/20/22 1328 Pravastatin Sodium (Pravastatin Sodium) 40 Mg Tablet, 40 MG PO HS, (Reported) Entered as Reported by: JAMES WHITFIELD on 09/09/21 1220 Discontinued Medications Duloxetine HCl (Duloxetine HCl) 60 Mg Capsule.dr, 60 MG PO BID, (Reported) Entered as Reported by: JAMES WHITFIELD on 09/09/21 1220 Eszopiclone (Eszopiclone) 3 Mg Tablet, 3 MG PO HS, (Reported) Entered as Reported by: MANASA IBARRA on 07/15/22 1052 Ferrous Sulfate (Ferrous Sulfate) 325 Mg (65 Mg Iron) Tablet, 325 MG PO Q48H, (Reported) Entered as Reported by: MANASA IBARRA on 07/15/22 105 Gabapentin (Neurontin) 300 Mg Capsule, 300 MG PO TID, (Reported) Entered as Reported by: MANASA IBARRA on 07/15/22 105 Melatonin (Melatonin) 10 Mg Tablet, 10 MG PO HS, (Reported) Entered as Reported by: NIESHA GALLO on 07/11/22 1617 Montelukast Sodium (Montelukast Sodium) 10 Mg Tablet, 10 MG PO HS, (Reported) Entered as Reported by: MANASA IBARRA on 07/15/22 105 Roflumilast (Roflumilast) 500 Mcg Tablet, 500 MCG PO DAILY, (Reported) Entered as Reported by: NIESHA GALLO on 07/11/22 161 Review of Systems Constitutional: no symptoms reported EENTM: no symptoms reported Respiratory: no symptoms reported Cardiovascular: no symptoms reported Gastrointestinal: no symptoms reported Genitourinary: no symptoms reported Musculoskeletal: see HPI Skin: no symptoms reported Psychiatric/Neurological: No Symptoms Reported (LULÚ CAMERON APRN) Past Wfqztrl-Mwrvpz-Fitbuv Hx Patient Social History Tobacco Use?: No Use of E-Cig and/or Vaping dev: No Substance use?: No Alcohol Use?: No Pt feels they are or have been: No (LULÚ CAMERON APRN) Immunizations Up To Date First/Initial COVID19 Vaccinat: DENIES (LULÚ CAMERON APRN) Physical Exam Vital Signs Vital Signs - First Documented 07/21/22 11:37 Temp 36.7 Pulse 79 Resp 18 B/P (MAP) 103/67 (79) Pulse Ox 92 O2 Delivery Room Air (TINA,AVTAR K DO) Vital Signs Capillary Refill : (LULÚ CAMERON APRN) Height, Weight, BMI Height: '" Weight: lbs. oz. kg; BMI Method: General Appearance: WD/WN, no apparent distress HEENT: PERRL/EOMI, normal ENT inspection, TMs normal, pharynx normal Neck: non-tender, full range of motion, supple, normal inspection Cardiovascular: regular rate, rhythm Respiratory: chest non-tender, lungs clear, normal breath sounds, no respiratory distress, no accessory muscle use Feet: right foot abrasions/lacerations, right foot soft tissue tenderness Neurologic/Psychiatric: no motor/sensory deficits, alert, normal mood/affect, oriented x 3 Skin: normal color, warm/dry (LULÚ CAMERON APRN) Progress/Results/Core Measures Results/Orders Vital Signs/I&O 07/21/22 07/21/22 11:37 12:35 Temp 36.7 Pulse 79 78 Resp 18 18 B/P (MAP) 103/67 (79) 102/54 Pulse Ox 92 93 O2 Delivery Room Air Room Air (TINA,AVTAR K DO) Progress Progress Note : Progress Note Review of EMR shows that patient was admitted to this facility for several days and discharged yesterday. During that stay, she had a PEG tube placed. There was also concern for bacteremia as she had a positive blood culture. The second blood culture appeared to have no growth which makes the positive blood culture more likely to be a contaminant. Patient was discharged home with oral antibiot ics which she states she is still taking. Patient is nontoxic and well-hydrated on exam. Vital signs are reassuring. There is some very mild swelling to the dorsum of the right foot. Neurovascular function appears intact distal to the injury. DP pulses strong and regular. There is a very small superficial abrasion noted to the dorsum of the foot. X-rays of the right foot ordered. No obvious osseous abnormality noted on my read of the foot x-rays. Formal radiology report agrees that there are no acute osseous findings noted. Patient was given an oral Lortab equal to the dose she takes at home as she has not had 1 today. An Mac wrap was also placed to the right foot. Patient will be discharged home with recommendations for supportive care and follow-up with PCP. Return precautions for urgent symptomology discussed. Patient and daughter verbalized understanding. (LULÚ CAMERON APRN) Departure Impression Primary Impression: Contusion of right foot Qualified Codes: S90.31XA - Contusion of right foot, initial encounter Disposition: HOME, SELF-CARE Condition: Stable Departure-Patient Inst. Decision time for Depature: 12:15 (LULÚ CAMERON APRN) [facility]errals: [facility] [place] Instructions: Minor Contusion ED ATTENDING PHYSICIAN NOTE: I WAS PHYSICALLY PRESENT ER PHYSICIAN, BUT I WAS NOT INVOLVED IN ANY DECISION MAKING OR ANY CARE OF THIS PATIENT, AND I AM NOT COLLABORATING PHYSICIAN. (AVTAR WILDER DO) LULÚ CAMERON APRN Jul 21, 2022 11:41 AVTAR WILDER DO Jul 24, 2022 00:36
--- NOTE | 2022-07-21 12:02 | Diagnostic Imaging Report ---
FOOT, RIGHT, 3 VIEW INDICATION: Right foot injury COMPARISON: None available. TECHNIQUE: 3 nonweightbearing views of right foot FINDINGS: No acute fracture or osseous erosions. Mild hallux valgus measures approximately 20 degrees. 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 IMPRESSION: No acute fracture within the right foot. Dictated by: Dictated on workstation # [id number]
[2022-07-21] MEDS ORDERED: HYDROcodone/APAP 5 MG/325 MG (LORTAB) TAB PEG ONE (12:30)
[2022-07-21 12:35] VITALS: BP 102/54
== END 2022-07-21 12:40 | disposition home or self-care (01) ==
LOC: EDUNIT# 11:37 → ER 11:41
DX: S90.31XA Contusion of right foot, initial encounter (principal); Z28.310 Unvaccinated for COVID-19; W22.8XXA Striking against or struck by other objects, initial encounter
CPT/HCPCS: 73630

== ENCOUNTER → 2022-08-07 | Outpatient (CLI) | payer OTHER, MEDICAID ==
[~2022-08-07] MED LIST changes: +CETI1SOL71 PO; +DULO60CA7 PO; +GABA250S2 PO; +HYDR118S10 PO; +LACT1CAP74 PO; +SULF473O9 PO
--- NOTE | 2022-08-07 15:48 | Diagnostic Imaging Report ---
EXAMINATION: CT chest without contrast. TECHNIQUE: Multiple contiguous axial images were obtained through the chest without the use of intravenous contrast. All CT scans use one or more of the following dose optimizing techniques: automated exposure control, MA and/or KvP adjustment based on patient size and exam type or iterative reconstruction. HISTORY: COPD COMPARISON: 03/03/2022 FINDINGS: Thyroid: The thyroid is normal. Mediastinum: Heart size is normal with trace pericardial effusion. Calcifications of the aorta and coronary vessels. Thoracic aorta is normal in caliber. There are a few prominent mediastinal nodes measuring up to 1.6 x 1.0 cm. Lungs and airways: There is patchy consolidation within the left upper lobe and lower lobes. There is linear atelectasis or scarring within the right lung base. No pleural effusion or pneumothorax. The airways are normal. Upper abdomen: The subphrenic structures are normal. Musculoskeletal: Degenerative changes of the spine without suspicious osseous lesion or compression fracture. IMPRESSION: 1. Patchy consolidation within the left upper and lower lobes concerning for aspiration or pneumonia. 2. Prominent mediastinal lymph nodes are nonspecific and may be reactive. Dictated by: Dictated on workstation # [id number]
== END ==
LOC: RAD 13:25
PROVIDERS: ATTEND Nurse Practitioner Family
DX: J44.9 Chronic obstructive pulmonary disease, unspecified (principal)
CPT/HCPCS: 71250

== ENCOUNTER 2022-08-09 01:42 | Inpatient (IN) | payer MEDICARE, MEDICAID ==
[~2022-08-09] VITALS: Ht 157.5 cm; Wt 81.6 kg
[~2022-08-09 01:42] MED LIST changes: -CETI1SOL71 PO; -DULO60CA7 PO; -GABA250S2 PO; -HYDR118S10 PO; -LACT1CAP74 PO; -SULF473O9 PO
[2022-08-09] MEDS ORDERED: NS IV 1000 ML 1,000 ML IV SCH ×2 (02:00→09:30)
[2022-08-09] MEDS ORDERED: PIPERACILLIN SODIUM/TAZOBACTAM 4.5 GM in NS (IVPB) 100 ML IV ONE (02:00)
[2022-08-09] MEDS ORDERED: AZITHROMYCIN INJECTION 500 MG in NS (IVPB) 250 ML IV ONE (02:00)
[2022-08-09] MEDS ORDERED: ACETAMINOPHEN 500 MG TAB (TYLENOL) PO PRN (02:00)
--- NOTE | 2022-08-09 02:03 | ED Respiratory ---
General Chief Complaint: Respiratory Problems Stated Complaint: POSSIBLY SEPTIC Source: patient, EMS Exam Limitations: clinical condition History of Present Illness Date Seen by Provider: Aug 09, 2022 Time Seen by Provider: 01:50 Initial Comments 72-year-old female with past medical history of COPD, chronic respiratory failure on roughly 3 L oxygen and recent bacteremia coming in via EMS from home due to confusion, fever, worsening cough, worsening shortness of breath. Unclear of when this got worse again. The patient has had previous head and neck cancer and has had radiation in the past making it difficult for her to talk. She is also confused so further elements of history and physical were unable to be obtained. On review of the chart, she has an aspiration risk and has a G-tube in place. She states she does not swallow anything anymore and just uses the G-tube. Allergies and Home Medications Allergies Coded Allergies: ceftriaxone (Verified Allergy, Severe, DIFFICULTY BREATING, 07/05/19) levofloxacin (Verified Allergy, Severe, C-DIFF, 07/05/19) Patient Home Medication List Home Medication List Reviewed: Yes Albuterol Sulfate (Ventolin Hfa) 90 Mcg Hfa.aer.ad, 2 PUFF INH Q6H PRN for SHORTNESS OF BREATH, (Reported) Entered as Reported by: MANASA IBARRA on 07/15/22 1052 Albuterol Sulfate (Albuterol Sulfate) 2.5 Mg/0.5 Ml Vial.neb, 2.5 MG INH Q6H PRN for SHORTNESS OF BREATH, (Reported) Entered as Reported by: MANASA IBARRA on 07/15/22 1101 Amoxicillin (Amoxicillin) 400 Mg/5 Ml Susp.recon, 400 MG PO TID Prescribed by: ANTWON GOODRICH on 07/20/22 1328 Apixaban (Eliquis) 5 Mg Tablet, 5 MG PO BID, (Reported) Entered as Reported by: JAMES WHITFIELD on 09/09/21 1220 Aspirin (Aspirin) 81 Mg Tab.chew, 81 MG PO Q48H, (Reported) Entered as Reported by: JAMES WHITFIELD on 09/09/21 1220 Budesonide/Glycopyr/Formoterol (Breztri Aerosphere Inhaler) 160 Mcg-9 Mcg-4.8 Mcg/Actuation Hfa.aer.ad, 2 PUFF IH BID, (Reported) Entered as Reported by: JAMES WHITFIELD on 09/09/21 1220 Cholecalciferol (Vitamin D3) (Vitamin D3) 125 Mcg Capsule, 125 MCG PO DAILY, (Reported) Entered as Reported by: JAMES WHITFIELD on 09/09/21 1220 Cyclosporine (Restasis) 0.05 % Droperette, 1 DROP OU BID, (Reported) Entered as Reported by: MANASA IBARRA on 07/15/22 1052 Diclofenac Sodium (Diclofenac Sodium) 1 % Gel..gram., 1 APPLIC TOP BID PRN for PAIN-BREAKTHROUGH, (Reported) Entered as Reported by: MANASA IBARRA on 07/15/22 1052 Etanercept (Enbrel) 50 Mg/Ml (1 Ml) Syringe, 50 MG SQ SUN, (Reported) Entered as Reported by: MANASA IBARRA on 07/15/22 1052 Hydrocodone/Acetaminophen (Hydrocodone-Acetamin 5-325 mg) 5 Mg-325 Mg Tablet, 1 EA PO DAILY, (Reported) Entered as Reported by: JAMES WHITFIELD on 09/09/21 1220 Ipratropium/Albuterol Sulfate (Iprat-Albut 0.5-3(2.5) mg/3 ml) 0.5 Mg-3 Mg (2.5 Mg Base)/3 Ml Ampul.neb, 3 ML NEB BID, (Reported) Entered as Reported by: MANASA IBARRA on 07/15/22 1052 Lactose-Reduced Food/Fiber (Jevity 1.5 Scotty Liquid) 0.06 Gram-1.5 Kcal/Ml Liquid, 1 EACH PEG QID Prescribed by: ANTWON OGODRICH on 07/20/22 1328 Pravastatin Sodium (Pravastatin Sodium) 40 Mg Tablet, 40 MG PO HS, (Reported) Entered as Reported by: JAMES WHITFIELD on 09/09/21 1220 Review of Systems Review of Systems Constitutional: fever Respiratory: cough, short of breath Past Lkrpxjj-Hrhdxn-Mupltw Hx Immunizations Up To Date Tetanus Booster (TDap): Unknown PED Vaccines UTD: Yes First/Initial COVID19 Vaccinat: DENIES Second COVID19 Vaccination Estevan: NO Third COVID19 Vaccination Date: NO Seasonal Allergies Seasonal Allergies: Yes Past Medical History Surgeries: Yes (heart ablation, mouth cancer, feeding tube,peripheral stents;LOOP RECORDER;) Abdominal, Amputation, Cardiac, Joint Replacement, Orthopedic, Vascular Surgery Respiratory: Yes (O2 2.5L NC AT NIGHT AND PRN;P.E. 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 Sexually Transmitted Disease: No HIV/AIDS: No Genitourinary: No Gastrointestinal: Yes (FEEDING TUBE;PANCREATITIS 2003) Gastroesophageal Reflux, Pancreatitis, C-Diff, Hiatal Hernia, Ulcer Musculoskeletal: Yes (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 ) Amputee, Arthritis, Rheumatoid Arthritis Endocrine: Yes Diabetes, Non-Insulin dep HEENT: Yes (GLASSES; ORAL CANCER-S/P SURGERY/CHEMO/RADIATION) Dysphagia, Tinnitis Loss of Vision: Bilateral Hearing Impairment: Denies Cancer: Yes (SKIN CANCER OF FACE; ORAL CANCER) Skin, Oral Did You Recieve Any Treatments: Yes What Type of Treatment Did You: Chemotherapy, Radiation, Surgical Intervention Psychosocial: Yes Sleep Difficulties, Anxiety, Depression Integumentary: No Blood Disorders: No Adverse Reaction/Blood Tranf: No (N/A) Family Medical History Cancer 09 SISTER Family history: Arthritis 09 BROTHER 09 SISTER Family history: Cardiovascular disease 09 SISTER Family history: Thyroid disorder 09 SISTER Malignant neoplasm of lung 09 SISTER Heart Disease PSH: -EGD'S/PEG TUBES -LAST ONE 06/2019 -LEFT FOREFOOT AMPUTATION DUE TO GANGRENE 2013 -CARDIAC CATHS AND PERIPHERAL CATHS--ANGIOPLASTY AND STENTS LEFT SFA AND COMMON ILIAC 05/2013; AND REPEAT INTERVENTION AND STENTING 02/2014; BILATERAL ILIAC STENTS; ATHERECTOMY AND ANGIOPLASTY OF R SFA, POPLITEAL AND ANTERIOR TIBITAL ARTERIES 03/2014 -PORT RIGHT CHEST -PERIPHERAL ARTERY STENTS AND ANGIOPLASTY -CARDIAC ABLATION 01/2018 FOR AVNRT/AFIB-FLUTTER -RIGHT KNEE REPLACEMENT-12/2016 -RIGHT TOTAL HIP REPLACEMENT 2003 -DEBRIDEMENT OF LEFT SHOULDER DUE TO SPIDER BITE 2015 -LOOP RECORDER 04/06/2018 Physical Exam Vital Signs - First Documented 08/09/22 01:49 Temp 38.3 Pulse 90 Resp 16 B/P (MAP) 116/55 (75) Pulse Ox 96 O2 Delivery Nasal Cannula O2 Flow Rate 4.00 Capillary Refill : Height: 5'2.00" Weight: 180lbs. 0.0oz. 81.424243sz; 28.00 BMI Method:Actual General Appearance: other (Chronically ill-appearing, confused, breathing heavily) Eyes: Bilateral Eye Normal Inspection HEENT: PERRL/EOMI, normal ENT inspection, pharynx normal Neck: non-tender, full range of motion, supple, normal inspection Respiratory: chest non-tender, accessory muscle use, rhonchi Cardiovascular: regular rate, rhythm, no edema, no murmur Gastrointestinal: normal bowel sounds, non tender, soft; No distended, No guarding; other (G-tube in place with the skin around its not appearing infected) Extremities: normal range of motion, non-tender, normal inspection, no pedal edema, no calf tenderness, normal capillary refill Neurologic/Psychiatric: alert, other (Oriented to person and place, not situation or date, moving all extremities equally) Skin: normal color, warm/dry Lymphatic: no adenopathy Focused Exam Lactate Level 08/09/22 01:55: Lactic Acid Level 0.86 Lactic Acid Level Laboratory Tests Test 08/09/22 01:55 Lactic Acid Level 0.86 MMOL/L (0.50-2.00) Progress/Results/Core Measures Suspected Sepsis SIRS Temperature: Pulse: Respiratory Rate: Laboratory Tests 08/09/22 01:55: White Blood Count 15.8H Blood Pressure / Mean: 08/09/22 01:55: Lactic Acid Level 0.86 Laboratory Tests 08/09/22 01:55: Creatinine 0.86, INR Comment 1.6H, Platelet Count 476H, Total Bilirubin 0.6 Results/Orders Lab Results Laboratory Tests Test 08/09/22 01:55 08/09/22 02:00 08/09/22 02:50 Range/Units White Blood Count 15.8 H 4.3-11.0 10^3/uL Red Blood Count 3.34 L 3.80-5.11 10^6/uL Hemoglobin 10.1 L 11.5-16.0 g/dL Hematocrit 30 L 35-52 % Mean Corpuscular Volume 90 80-99 fL Mean Corpuscular Hemoglobin 30 25-34 pg Mean Corpuscular Hemoglobin Concent 33 32-36 g/dL Red Cell Distribution Width 15.1 H 10.0-14.5 % Platelet Count 476 H 130-400 10^3/uL Mean Platelet Volume 9.5 9.0-12.2 fL Immature Granulocyte % (Auto) 3 % Neutrophils (%) (Auto) 71 42-75 % Lymphocytes (%) (Auto) 15 12-44 % Monocytes (%) (Auto) 10 0-12 % Eosinophils (%) (Auto) 0 0-10 % Basophils (%) (Auto) 1 0-10 % Neutrophils # (Auto) 11.2 H 1.8-7.8 10^3/uL Lymphocytes # (Auto) 2.4 1.0-4.0 10^3/uL Monocytes # (Auto) 1.6 H 0.0-1.0 10^3/uL Eosinophils # (Auto) 0.1 0.0-0.3 10^3/uL Basophils # (Auto) 0.1 0.0-0.1 10^3/uL Immature Granulocyte # (Auto) 0.4 H 0.0-0.1 10^3/uL Neutrophils % (Manual) 71 % Lymphocytes % (Manual) 17 % Monocytes % (Manual) 10 % Eosinophils % (Manual) 1 % Band Neutrophils 1 % Prothrombin Time 19.2 H 12.2-14.7 SEC INR Comment 1.6 H 0.8-1.4 Activated Partial Thromboplast Time 49 H 24-35 SEC Sodium Level 131 L 135-145 MMOL/L Potassium Level 4.3 3.6-5.0 MMOL/L Chloride Level 98 98-107 MMOL/L Carbon Dioxide Level 23 21-32 MMOL/L Anion Gap 10 5-14 MMOL/L Blood Urea Nitrogen 18 7-18 MG/DL Creatinine 0.86 0.60-1.30 MG/DL Estimat Glomerular Filtration Rate 71 BUN/Creatinine Ratio 21 Glucose Level 128 H 70-105 MG/DL Lactic Acid Level 0.86 0.50-2.00 MMOL/L Calcium Level 9.1 8.5-10.1 MG/DL Corrected Calcium 10.0 8.5-10.1 MG/DL Total Bilirubin 0.6 0.1-1.0 MG/DL Aspartate Amino Transf (AST/SGOT) 29 5-34 U/L Alanine Aminotransferase (ALT/SGPT) 26 0-55 U/L Alkaline Phosphatase 170 H 40-136 U/L Troponin I 0.057 H <0.028 NG/ML Total Protein 7.5 6.4-8.2 GM/DL Albumin 2.9 L 3.2-4.5 GM/DL Influenza Type A (RT-PCR) Not Detected Not Detecte Influenza Type B (RT-PCR) Not Detected Not Detecte SARS-CoV-2 RNA (RT-PCR) Not Detected Not Detecte Urine Color YELLOW Urine Clarity CLEAR Urine pH 8.5 5-9 Urine Specific [place] 1.015 L 1.016-1.022 Urine Protein NEGATIVE NEGATIVE Urine Glucose (UA) NEGATIVE NEGATIVE Urine Ketones NEGATIVE NEGATIVE Urine Nitrite NEGATIVE NEGATIVE Urine Bilirubin NEGATIVE NEGATIVE Urine Urobilinogen 2.0 < = 1.0 MG/DL Urine Leukocyte Esterase NEGATIVE NEGATIVE Urine RBC (Auto) NEGATIVE NEGATIVE Urine RBC 2-5 H /HPF Urine WBC NONE /HPF Urine Crystals NONE /LPF Urine Bacteria NEGATIVE /HPF Urine Casts NONE /LPF Urine Mucus NEGATIVE /LPF Urine Culture Indicated NO My Orders Orders - JUANJO GAO MD Cbc With Automated Diff (08/09/22 01:52) Comprehensive Metabolic Panel (08/09/22 01:52) Blood Culture (08/09/22 01:52) Sputum Culture (08/09/22 01:52) Urinalysis (08/09/22 01:52) Urine Culture (08/09/22 01:52) Protime With Inr (08/09/22 01:52) Partial Thromboplastin Time (08/09/22 01:52) Chest 1 View, Ap/Pa Only (08/09/22 01:52) Acetaminophen Tablet (Tylenol Tablet) (08/09/22 02:00) Ed Iv/Invasive Line Start (08/09/22 01:52) Ekg Tracing (08/09/22 01:52) Troponin I Troup (08/09/22 01:52) Vital Signs Adult Sepsis Patie Q15M (08/09/22 01:52) O2 (08/09/22 01:52) Remove Rings In Anticipation O (08/09/22 01:52) Lactic Acid Analyzer (08/09/22 01:52) Influenza A And B By Pcr (08/09/22 01:52) Ns Iv 1000 Ml (Sodium Chloride 0.9%) (08/09/22 02:00) Piperacillin Sodium/Tazobactam (Zosyn Vi (08/09/22 02:00) Covid 19 Inhouse Test (08/09/22 01:52) Azithromycin Injection (Zithromax Inject (08/09/22 02:00) Manual Differential (08/09/22 01:55) Catheter(Urinary) Insert & Ass 03,15 (08/09/22 02:41) Arterial Blood Gas (08/09/22 02:47) Medications Given in ED Current Medications Medications Dose Ordered Sig/Terrance Route Start Time Stop Time Status Last Admin Dose Admin Acetaminophen 1,000 mg ONCE PRN PO 08/09/22 02:00 08/09/22 02:14 DC 08/09/22 02:13 1,000 MG Azithromycin 500 mg/Sodium Chloride 250 ml @ 250 mls/hr ONCE ONCE IV 08/09/22 02:00 08/09/22 02:59 DC 08/09/22 03:04 250 MLS/HR Piperacillin Sod/ Tazobactam Sod 4.5 gm/Sodium Chloride 100 ml @ 200 mls/hr ONCE ONCE IV 08/09/22 02:00 08/09/22 02:29 DC 08/09/22 02:27 200 MLS/HR Vital Signs/I&O 08/09/22 08/09/22 01:49 02:00 Temp 38.3 Pulse 90 Resp 16 B/P (MAP) 116/55 (75) Pulse Ox 96 96 O2 Delivery Nasal Cannula Nasal Cannula O2 Flow Rate 4.00 4.00 Capillary Refill : Progress Note : Progress Note 72-year-old female presenting via EMS due to concern for infection. The patient was febrile on presentation but not tachycardic. Unclear if her true baseline oxygen at home, she believes she is on 2 L. She requires 4 L to maintain her oxygen saturation above 90% here. Her port was accessed and basic labs were obtained including apical septic work-up. An EKG was ordered and interpreted by me showing no STEMI. I reviewed the patient's CT scan that was done roughly 24 hours ago concerning for pneumonia. I also reviewed the patient's most recent hospitalization where she was growing out group A strep and her blood on 2 different blood cultures. She would have finished home antibiotics roughly 10 days ago. She did get Zosyn while inpatient. Given that the CT scan is concerning for aspiration with pneumonia, we will give her Zosyn again today as well as azithromycin for any potential atypicals. Her white blood cell count is elevated and just under 16,000, troponin slightly elevated which is likely a type II NSTEMI in the setting of her hypoxia earlier when EMS arrived, normal creatinine, normal lactic acid. I am concerned that the patient likely is bacteremic versus just has aspiration pneumonia. Cultures pending at this time. She was given a liter of IV fluids followed by fluids from her antibiotics. Lactic acid less than 4 and she is not hypotensive. Clinically she does appear to be euvolemic at this time and we will hold off on further IV fluids until she is reassessed. I called and discussed the case with Dr. Santa who will admit the patient under inpatient status to the intensive care unit for further evalua tion management. I did call and discussed the case with the intensive care physician as well, we will go ahead and add vancomycin to cover for MRSA until sputum culture comes back. ECG Initial ECG Impression Date: Aug 09, 2022 Initial ECG Impression Time: 02:06 Initial ECG Rate: 89 Initial ECG Rhythm: Normal Sinus Comment Narrow QRS, normal axis, no STEMI, there is some artifact in the precordial leads but accounting for that no significant ischemic changes on my interpretation Diagnostic Imaging Diagonstic Imaging: Xray (chest) Comments X-ray of the chest ordered and interpreted by me showing significant infiltrate in the left lung base and left mid to upper lung concerning for pneumonia Departure Impression Primary Impression: Respiratory failure with hypoxia Qualified Codes: J96.21 - Acute and chronic respiratory failure with hypoxia Additional Impressions: Severe sepsis Aspiration pneumonia Qualified Codes: J69.0 - Pneumonitis due to inhalation of food and vomit NSTEMI (non-ST elevated myocardial infarction) Disposition: 09 ADMITTED INPATIENT Condition: Stable Admissions Decision to Admit Reason: Admit from ER (General) Decision to Admit/Date: Aug 09, 2022 Time/Decision to Admit Time: 02:30 Departure-Patient Inst. Referrals: [facility] (PCP/Family) Primary Care Physician JUANJO GAO MD Aug 09, 2022 02:03
[2022-08-09 02:08] LABS: BASOPHILS # (AUTO) 0.1 10^3/uL (0.0-0.1); BASOPHILS % (AUTO) 1 % (0-10); EOSINOPHILS # (AUTO) 0.1 10^3/uL (0.0-0.3); EOSINOPHILS % (AUTO) 0 % (0-10); HEMATOCRIT 30 % (35-52); HEMOGLOBIN 10.1 g/dL (11.5-16.0); LYMPHOCYTES # (AUTO) 2.4 10^3/uL (1.0-4.0); LYMPHOCYTES % (AUTO) 15 % (12-44); MEAN CORPUSCULAR HEMOGLOBIN 30 pg (25-34); MEAN CORPUSCULAR HGB CONC 33 g/dL (32-36); MEAN CORPUSCULAR VOLUME 90 fL (80-99); MEAN PLATELET VOLUME 9.5 fL (9.0-12.2); MONOCYTES # (AUTO) 1.6 10^3/uL (0.0-1.0); MONOCYTES % (AUTO) 10 % (0-12); NEUTROPHILS # (AUTO) 11.2 10^3/uL (1.8-7.8); NEUTROPHILS % (AUTO) 71 % (42-75); PLATELET COUNT 476 10^3/uL (130-400); WHITE BLOOD COUNT 15.8 10^3/uL (4.3-11.0)
[2022-08-09 02:17] LABS: ALBUMIN 2.9 GM/DL (3.2-4.5); POTASSIUM 4.3 MMOL/L (3.6-5.0)
[2022-08-09 02:18] LABS: CALCIUM 9.1 MG/DL (8.5-10.1)
[2022-08-09 02:19] LABS: INR 1.6 (0.8-1.4); PROTHROMBIN TIME PATIENT 19.2 SEC (12.2-14.7)
[2022-08-09 02:20] LABS: TOTAL PROTEIN 7.5 GM/DL (6.4-8.2)
[2022-08-09 02:21] LABS: BILIRUBIN,TOTAL 0.6 MG/DL (0.1-1.0)
[2022-08-09 02:23] LABS: CREATININE SERUM 0.86 MG/DL (0.60-1.30)
[2022-08-09 02:25] LABS: BAND NEUTROPHILS 1 %; EOSINOPHILS % (MANUAL) 1 %; LYMPHOCYTES % (MANUAL) 17 %; MONOCYTES % (MANUAL) 10 %; NEUTROPHILS % (MANUAL) 71 %
[2022-08-09] MEDS ORDERED: VANCOMYCIN INJECTION 1,500 MG in NS IV 500 ML 500 ML IV STA (02:56)
[2022-08-09 02:57] LABS: BILIRUBIN,URINE NEGATIVE (NEGATIVE); CLARITY,URINE CLEAR; COLOR,URINE YELLOW; GLUCOSE, URINE (UA) NEGATIVE (NEGATIVE); KETONES,URINE NEGATIVE (NEGATIVE); LEUKOCYTE ESTERASE ,URINE NEGATIVE (NEGATIVE); NITRITE,URINE NEGATIVE (NEGATIVE); PH,URINE 8.5 (5-9); PROTEIN,URINE NEGATIVE (NEGATIVE)
[2022-08-09 03:05] LABS: ABG BASE EXCESS 1.5 MMOL/L (-2.5-2.5); ABG OXYGEN SATURATION 94 % (94-100); ABG PCO2 37 MMHG (35-45); ABG PH 7.45 (7.37-7.43); ABG PO2 62 MMHG (79-93); ABG TCO2 26.4 MMOL/L (21.0-31.0); ALLENS TEST YES-POS; VENTILATOR NO
[2022-08-09 03:19] LABS: BACTERIA,URINE NEGATIVE /HPF
[2022-08-09 04:16] VITALS: BP 116/55
[2022-08-09] MEDS ORDERED: APAP 325 MG/10.15 ML LIQ (TYLENOL) UDC GT PRN (04:30)
[2022-08-09] MEDS ORDERED: NS IV 500 ML 500 ML IV PRN (04:30)
[2022-08-09] MEDS ORDERED: ONDANSETRON 4 MG/2 ML (SDV) Z0FRAN IV PRN (04:30)
[2022-08-09] MEDS: VANCOMYCIN 750 MG/NS 250 ML IVPB IV SCH ×4 (04:33→04:34)
[2022-08-09] MEDS ORDERED: RT-ALBUTEROL SULF 2.5 MG/3 ML PRE-MIX VIAL INH PRN (05:00)
--- NOTE | 2022-08-09 05:40 | Tele-ICU Progress Note ---
Progress Note eICU 72 yo woman admitted through ED with increasing fever, cough and shortness of breath despite her compliance with usual nebulizers and home O2. Had just been at [facility] disch 07/20 with PNA due to Group A strep and blood culture + sepsis, hypoxemic respiratory failure . PMHX is + for COPD, squamous cell ca mouth, PEG placement for chronic dysphagia, previous stroke, rheumatoid arthritis, pulm emboli on Eliquis, has a chronic IV port. EKG sinus rate 69, nl axis, t wave inversion in V1-3, flat in V6, c/w ischemia - artifact V4, 5 CXR consolidaton L lingula and L LL and min infiltrate R base, has port R SVC Labs: Wbcs 15,800 Hgb 10.1 Plts 476,000 INR 1.6 UA 2-5 rbcs otherwise neg Lactic acid 0.86 COVID, FLU- neg Na 131 K 4.3 Cl 93 Bicarb 23 Gluc 128 Alk phos 170 Total prot 7.5 Alb 2.9 BUN 18 Cr 0.86 ABGs 7.45/37/62/25 Per video pt is comfortable HR 73 sinus, BP 100/50 RR 16 sats 97% on NC O2 A: 1) Pneumonia - predominant L lingula and LLL consolidation 2) myocardial ischemia (+trop and EKG changes as above ) P: D/W ED physician before admission and pt was started on Zosyn, Azithromycin , Vancomycin- to be continued . Is on nebulizers and O2 by DC. Cardiology is already consulted, will add repeat troponin . Will restart her apixiban 5 mg BID also. D/W bedside nursing. Focused Exam Lactate Level 08/09/22 01:55: Lactic Acid Level 0.86 Height, Weight, BMI Height: 5'2.00" Weight: 180lbs. 0.0oz. 81.072488um; 28.00 BMI Method:Actual Lactic Acid Level Laboratory Tests Test 08/09/22 01:55 Lactic Acid Level 0.86 MMOL/L (0.50-2.00) JOSH MACARIO DO Aug 09, 2022 05:40
[2022-08-09] MEDS: CATHETER FLUSH 10 ML SYR IVP SCH ×3 (05:56→22:00)
[2022-08-09] MEDS: KCL 20 MEQ TAB (K-DUR) PO SCH (05:56)
[2022-08-09] MEDS: MAGNESIUM 1 GM/100 ML IVPB 100 ML IV SCH (05:56)
[2022-08-09] MEDS: POTASSIUM CL 10MEQ/50ML IVPB 50 ML IV SCH (05:56)
--- NOTE | 2022-08-09 06:42 | History & Physical-Hospitalist ---
History of Present Illness HPI/Chief Complaint Chief complaint: Sepsis HPI: This is a 72-year-old female who presented to the ER with altered mental status. Patient was found to have pneumonia. Patient has a lot of medical issues and has had a major decline in the last few years. She has difficulty with aspiration since head and neck cancer has been treated. Feeding tube maintained. Daughter at the bedside who cares for her in her home. Dr. Diane consulted. Reviewed records. Source: family, caregiver Exam Limitations: clinical condition Date Seen 08/09/22 Time Seen by a Provider: 10:30 Attending Physician [facility] PCP Admitting Physician: Mary Jane Ayala DO Attending Physician: Mary Jane Ayala DO Referring Physician Date of Admission Aug 09, 2022 at 02:52 Home Medications & Allergies Home Medications Reviewed patient Home Medication Reconciliation performed by pharmacy medication reconciliations electrical assembly technician and/or nursing. Patients Allergies have been reviewed. Allergies Allergies Coded Allergies ceftriaxone (Verified Allergy, Severe, DIFFICULTY BREATING, 07/05/19) levofloxacin (Verified Allergy, Severe, C-DIFF, 07/05/19) Past Gkobopx-Bzedpw-Qzwtqv Hx Patient Social History Marrital Status: single Employed/Student: retired Tobacco Use?: No Smoking Status: Former Smoker Immunizations Up To Date Date of Influenza Vaccine: Jun 12, 2022 First/Initial COVID19 Vaccinat: DENIES Second COVID19 Vaccination Estevan: DENIES Tetanus Booster (TDap): Unknown Hepatitis A: No Hepatitis B: No PED Vaccines UTD: Yes Date of Pneumonia Vaccine: Jun 15, 2019 Seasonal Allergies Seasonal Allergies: Yes Current Status Communicates: Points, Verbally Primary Language: Divehi Preferred Spoken Language: Divehi Is interpretation needed?: No Past Medical History Surgeries: Abdominal, Amputation, Cardiac, Joint Replacement, Orthopedic, Vascular Surgery Pneumonia, Chronic Bronchitis, Pulmonary Embolism, COPD, Emphysema Currently Using CPAP: No Currently Using BIPAP: No Atrial Fibrillation, Chronic Edema/Swelling, Deep Vein Thrombosis, High Cholesterol, Hypertension, Irregular Heartbeat, Peripheral Vascular Dementia, Stroke 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 ASOD - history of bilateral stents BLE Dr. Sevilla, redo stenting Dr. Engel Lt. SFA 02/23 2. Pancreatitis 2003 3. Hyperlipidemia 4. Chronic obstructive pulmonary disease 5. RA previously evaluated by Dr. Javier 6. History of skin cancer of the face 7. Dry Gangrene Lt. Foot s/p amputation 8. "Spider Bite" with wound Left shoulder with tissue 9 DJD 10. Insomnia 11. Stroke with dysarthria and right sided weakness 12. Mild Dementia 13. hypertension 14. 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 Hip Replacement 2003 2. BLE Stents RT. 2003, Lt. 2012 x3 by Di (on coumadin for short period post stent) stopped by Di 3. Otolaryngologic surgery for CA bridge of nose and inner canthus of rt. eye 2009 4. Athrectomy with Lt. SFA stent Toro 02/23 5. Rt. SFA, popliteal and anterior tibial arthrectomy Toro 03/26 6. Left forefoot amputation-Reveal 7. PEG tube placement Family Medical History Cancer 09 SISTER Family history: Arthritis 09 BROTHER 09 SISTER Family history: Cardiovascular disease 09 SISTER Family history: Thyroid disorder 09 SISTER Malignant neoplasm of lung 09 SISTER Heart Disease PSH: -EGD'S/PEG TUBES -LAST ONE 06/2019 -LEFT FOREFOOT AMPUTATION DUE TO GANGRENE 2013 -CARDIAC CATHS AND PERIPHERAL CATHS--ANGIOPLASTY AND STENTS LEFT SFA AND COMMON ILIAC 05/2013; AND REPEAT INTERVENTION AND STENTING 02/2014; BILATERAL ILIAC STENTS; ATHERECTOMY AND ANGIOPLASTY OF R SFA, POPLITEAL AND ANTERIOR TIBITAL ARTERIES 03/2014 -PORT RIGHT CHEST -PERIPHERAL ARTERY STENTS AND ANGIOPLASTY -CARDIAC ABLATION 01/2018 FOR AVNRT/AFIB-FLUTTER -RIGHT KNEE REPLACEMENT-12/2016 -RIGHT TOTAL HIP REPLACEMENT 2003 -DEBRIDEMENT OF LEFT SHOULDER DUE TO SPIDER BITE 2014 -LOOP RECORDER 04/06/2018 Review of Systems Constitutional: see HPI Physical Exam Physical Exam Vital Signs Vital Signs - First Documented 08/09/22 08/09/22 01:49 04:16 Temp 38.3 Pulse 90 Resp 16 B/P (MAP) 116/55 (75) Pulse Ox 96 O2 Delivery Nasal Cannula O2 Flow Rate 4.00 FiO2 36 Capillary Refill : Less Than 3 Seconds Height, Weight, BMI Height: 5'2.00" Weight: 180lbs. 0.0oz. 81.446244tz; 27.38 BMI Method:Actual General Appearance: No Apparent Distress, Chronically ill Respiratory: No Accessory Muscle Use, No Respiratory Distress, Crackles, Decreased Breath Sounds, Wheezing Cardiovascular: Regular Rate, Rhythm Neurologic/Psychiatric: Other (Sleep) Results Results/Procedures Labs Laboratory Tests 08/09/22 01:55 Patient resulted labs reviewed. Assessment/Plan Admission Diagnosis Assessment: Sepsis Aspiration pneumonia Head and neck cancer Severe debility NSTEMI Plan: ICU IV fluids IV antibiotics Admission Status: Inpatient Order (span 2 midnights) Reason for Inpatient Admission: Sepsis MARY JANE AYALA DO Aug 09, 2022 06:42
[2022-08-09] MEDS: RT-ALBUTEROL SULF 2.5 MG/3 ML PRE-MIX VIAL INH SCH ×3 (07:22→22:01)
--- NOTE | 2022-08-09 07:25 | Diagnostic Imaging Report ---
INDICATION: Pneumonia, shortness of air, cough. Compared 07/15/2022 FINDINGS: There is dense airspace opacity in the periphery of the left midlung as well as progressive infiltrate in the medial left base and some new patchy developing infiltrate in the right lung base. Background air trapping noted. Right subclavian line at the SVC stable. IMPRESSION: 1. Worsened infiltrates particularly in the left lung presumed progressive radiographic features of pneumonia. 2. When correlated with chest CT of 08/07, no convincing interval change. Dictated by: Dictated on workstation # [id number]
[2022-08-09] MEDS: PIPERACILLIN SODIUM/TAZOBACTAM 4.5 GM in NS (IVPB) 100 ML IV SCH ×2 (08:13→16:25)
[2022-08-09] MEDS: PANTOPRAZOLE 40 MG (PROTONIX) VIAL IV SCH (08:13)
[2022-08-09] MEDS ORDERED: DULO60CA7 PO (08:30)
[2022-08-09] MEDS ORDERED: LACT1CAP74 PO (08:30)
[2022-08-09] MEDS ORDERED: MONT-40 PO (08:30)
[2022-08-09] MEDS ORDERED: MELA10TA2 PO (08:30)
[2022-08-09] MEDS ORDERED: ESZO3TAB30 PO (08:30)
[2022-08-09] MEDS ORDERED: GABA-490 PO (08:30)
[2022-08-09] MEDS ORDERED: ROFL500T9 PO (08:30)
[2022-08-09] MEDS ORDERED: SULF1TAB38 PO (08:30)
[2022-08-09] MEDS: APIXABAN 5 MG (ELIQUIS) TABLET PEG SCH ×2 (08:31→20:56)
[2022-08-09] MEDS ORDERED: NS IV 1000 ML 1,000 ML ONE (09:30)
--- NOTE | 2022-08-09 09:38 | Consultation-Cardiology ---
HPI-Cardiology Cardiology Consultation Date of Consultation 08/09/22 Date of Admission Time Seen by Provider: 09:30 Indication: Sepsis HPI 72-year-old lady with past medical history of COPD, chronic respiratory failure maintained on home oxygen. Had recent bacteremia. She has been having cough, worsening shortness of breath, change in mental status with confusion. Brought back to the emergency room and noted to have pneumonia with sepsis. On my evaluation she was still having cough, hypotensive. Denied any chest pain or palpitation. Home Medications & Allergies Allergies: Coded Allergies: ceftriaxone (Verified Allergy, Severe, DIFFICULTY BREATING, 07/05/19) levofloxacin (Verified Allergy, Severe, C-DIFF, 07/05/19) Home Medication List Reviewed: Yes RDM-[id number]-[id number] Hx Patient Social History Marital Status: Employed/Student: retired Former smoker/When Quit: Feb 16, 2014 Type Used: Cigarettes 2nd Hand Smoke Exposure: No Recent Hopitalizations: No Have you traveled recently?: No Immunizations Up To Date Tetanus Booster (TDap): Unknown Date of Pneumonia Vaccine: Jun 15, 2019 Date of Influenza Vaccine: Jun 12, 2022 Past Medical History Discussed below Family Medical History Significant Family History: Heart Disease Family History: Cancer 09 SISTER Family history: Arthritis 09 BROTHER 09 SISTER Family history: Cardiovascular disease 09 SISTER Family history: Thyroid disorder 09 SISTER Malignant neoplasm of lung 09 SISTER Review of Systems-General Review of Systems Constitutional: fever, malaise, weakness EENTM: see HPI, no symptoms reported Respiratory: cough, short of breath Cardiovascular: see HPI; No chest pain, No edema, No Hx of Intervention, No palpitations, No syncope, No vascular heart diseas, No other Gastrointestinal: no symptoms reported, see HPI Genitourinary: no symptoms reported, see HPI Musculoskeletal: no symptoms reported, see HPI Skin: no symptoms reported, see HPI Psychiatric/Neurological: No Symptoms Reported, See HPI Reviewed Test Results Reviewed Test Results Lab Laboratory Tests Test 08/09/22 01:55 08/09/22 02:00 08/09/22 02:50 08/09/22 02:59 Range/Units White Blood Count 15.8 H 4.3-11.0 10^3/uL Red Blood Count 3.34 L 3.80-5.11 10^6/uL Hemoglobin 10.1 L 11.5-16.0 g/dL Hematocrit 30 L 35-52 % Mean Corpuscular Volume 90 80-99 fL Mean Corpuscular Hemoglobin 30 25-34 pg Mean Corpuscular Hemoglobin Concent 33 32-36 g/dL Red Cell Distribution Width 15.1 H 10.0-14.5 % Platelet Count 476 H 130-400 10^3/uL Mean Platelet Volume 9.5 9.0-12.2 fL Immature Granulocyte % (Auto) 3 % Neutrophils (%) (Auto) 71 42-75 % Lymphocytes (%) (Auto) 15 12-44 % Monocytes (%) (Auto) 10 0-12 % Eosinophils (%) (Auto) 0 0-10 % Basophils (%) (Auto) 1 0-10 % Neutrophils # (Auto) 11.2 H 1.8-7.8 10^3/uL Lymphocytes # (Auto) 2.4 1.0-4.0 10^3/uL Monocytes # (Auto) 1.6 H 0.0-1.0 10^3/uL Eosinophils # (Auto) 0.1 0.0-0.3 10^3/uL Basophils # (Auto) 0.1 0.0-0.1 10^3/uL Immature Granulocyte # (Auto) 0.4 H 0.0-0.1 10^3/uL Neutrophils % (Manual) 71 % Lymphocytes % (Manual) 17 % Monocytes % (Manual) 10 % Eosinophils % (Manual) 1 % Band Neutrophils 1 % Prothrombin Time 19.2 H 12.2-14.7 SEC INR Comment 1.6 H 0.8-1.4 Activated Partial Thromboplast Time 49 H 24-35 SEC Sodium Level 131 L 135-145 MMOL/L Potassium Level 4.3 3.6-5.0 MMOL/L Chloride Level 98 98-107 MMOL/L Carbon Dioxide Level 23 21-32 MMOL/L Anion Gap 10 5-14 MMOL/L Blood Urea Nitrogen 18 7-18 MG/DL Creatinine 0.86 0.60-1.30 MG/DL Estimat Glomerular Filtration Rate 71 BUN/Creatinine Ratio 21 Glucose Level 128 H 70-105 MG/DL Lactic Acid Level 0.86 0.50-2.00 MMOL/L Calcium Level 9.1 8.5-10.1 MG/DL Corrected Calcium 10.0 8.5-10.1 MG/DL Total Bilirubin 0.6 0.1-1.0 MG/DL Aspartate Amino Transf (AST/SGOT) 29 5-34 U/L Alanine Aminotransferase (ALT/SGPT) 26 0-55 U/L Alkaline Phosphatase 170 H 40-136 U/L Troponin I 0.057 H <0.028 NG/ML Total Protein 7.5 6.4-8.2 GM/DL Albumin 2.9 L 3.2-4.5 GM/DL Influenza Type A (RT-PCR) Not Detected Not Detecte Influenza Type B (RT-PCR) Not Detected Not Detecte SARS-CoV-2 RNA (RT-PCR) Not Detected Not Detecte Urine Color YELLOW Urine Clarity CLEAR Urine pH 8.5 5-9 Urine Specific [place] 1.015 L 1.016-1.022 Urine Protein NEGATIVE NEGATIVE Urine Glucose (UA) NEGATIVE NEGATIVE Urine Ketones NEGATIVE NEGATIVE Urine Nitrite NEGATIVE NEGATIVE Urine Bilirubin NEGATIVE NEGATIVE Urine Urobilinogen 2.0 < = 1.0 MG/DL Urine Leukocyte Esterase NEGATIVE NEGATIVE Urine RBC (Auto) NEGATIVE NEGATIVE Urine RBC 2-5 H /HPF Urine WBC NONE /HPF Urine Crystals NONE /LPF Urine Bacteria NEGATIVE /HPF Urine Casts NONE /LPF Urine Mucus NEGATIVE /LPF Urine Culture Indicated NO Blood Gas Puncture Site UNK Blood Gas Patient Temperature UNK Arterial Blood pH 7.45 H 7.37-7.43 Arterial Blood Partial Pressure CO2 37 35-45 MMHG Arterial Blood Partial Pressure O2 62 L 79-93 MMHG Arterial Blood HCO3 25 23-27 MMOL/L Arterial Blood Total CO2 26.4 21.0-31.0 MMOL/L Arterial Blood Oxygen Saturation 94 94-100 % Arterial Blood Base Excess 1.5 -2.5-2.5 MMOL/L Jerry Test YES-POS Blood Gas Ventilator Setting NO Blood Gas Inspired Oxygen UNK Test 08/09/22 08:10 Range/Units Troponin I 0.039 H <0.028 NG/ML Physical Exam Physical Exam Vital Signs Vital Signs - First Documented 08/09/22 08/09/22 01:49 04:16 Temp 38.3 Pulse 90 Resp 16 B/P (MAP) 116/55 (75) Pulse Ox 96 O2 Delivery Nasal Cannula O2 Flow Rate 4.00 FiO2 36 Capillary Refill : Less Than 3 Seconds Height, Weight, BMI Height: 5'2.00" Weight: 180lbs. 0.0oz. 81.931521bh; 27.38 BMI Method:Actual General Appearance: No Apparent Distress, WD/WN Eyes: Bilateral Eye Normal Inspection HEENT: PERRL/EOMI, TMs Normal, Normal ENT Inspection, Pharynx Normal, Moist Mucous Membranes Neck: Full Range of Motion, Normal Inspection, Non Tender, Supple, Carotid Bruit Respiratory: Chest Non Tender, No Accessory Muscle Use, No Respiratory Distress, Crackles, Decreased Breath Sounds Cardiovascular: Regular Rate, Rhythm, No Edema, No Gallop, No JVD, No Murmur, Normal Peripheral Pulses Gastrointestinal: Normal Bowel Sounds, No Organomegaly, No Pulsatile Mass, Non Tender, Soft Back: Normal Inspection, No CVA Tenderness, No Vertebral Tenderness Extremity: Normal Capillary Refill, Normal Inspection, Normal Range of Motion, Non Tender, No Calf Tenderness, No Pedal Edema Neurologic/Psychiatric: Alert, Oriented x3, No Motor/Sensory Deficits, Normal Mood/Affect Skin: Normal Color, Warm/Dry Lymphatic: No Adenopathy A/P-Cardiology Admission Diagnosis Sepsis Hypotension Type II myocardial infarction Paroxysmal atrial fibrillation Assessment/Plan Hypotension, probably secondary to sepsis and pneumonia. 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 Managed by medical team History of paroxysmal atrial fibrillation, currently in sinus rhythm Mild elevation in troponin level, type II myocardial infarction, probably secondary to hypotension, underlying coronary artery disease cannot be excluded Type II myocardial infarction Last stress test was done in May 2016 with no significant ischemia or infarction with ejection fraction 76% 2D echo was done in November 2020 with normal LV function, EF 60 to 65%, grade 1 diastolic dysfunction, PA pressure 25 to 30 mmHg History of AVNRT Had ablation done by Dr. Ruiz in January 2018 Had implantable loop monitor done in March 2018, no documented atrial fibrillation was noted. Had atrial fibrillation episode in July 2022 during hospitalization Peripheral arterial disease History of balloon angioplasty of the left SFA and common iliac artery in May [address] Be, stenting to the same artery done by Dr. Cruz in February 2014. At that time she was noted to have bilateral iliac stents Currently following with [facility] vascular [facility] History of pulmonary embolism She has been maintained on Eliquis History of CVA, right-sided hemiparesis with dysarthria. Had left carotid occlusion in December 2014 History of feeding tube/PEG tube placement in July 2021 Carotid stenosis, chronic occlusion of the left internal carotid artery. The right has mild to moderate disease COPD followed by primary care team History of rheumatoid and degenerative arthritis History of tobaccoism. History of total knee replacement by Dr. 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
[2022-08-09] MEDS ORDERED: ASPIRIN 81 MG CHEW (CHILDREN'S ASA) PEG SCH (09:45)
[2022-08-09] MEDS: HYDROcodone/APAP 7.5MG-325 MG/15 ML (LORTAB) UDC GT PRN (20:57)
[2022-08-09] MEDS ORDERED: AtorvaSTATin TABLET 10 MG TABLET PEG SCH (21:00)
[2022-08-09] MEDS ORDERED: NON-FORMULARY MEDICATION 1 EA EA (Pravastatin Sodium 40 MG) PO SCH (21:00)
[2022-08-09] MEDS ORDERED: APIXABAN 5 MG (ELIQUIS) TABLET PO SCH (21:00)
[2022-08-10] MEDS: PIPERACILLIN SODIUM/TAZOBACTAM 4.5 GM in NS (IVPB) 100 ML IV SCH ×3 (00:45→16:36)
[2022-08-10] MEDS: RT-ALBUTEROL SULF 2.5 MG/3 ML PRE-MIX VIAL INH SCH ×4 (02:21→19:04)
[2022-08-10] MEDS: AZITHROMYCIN 250 MG/NS 250 ML IVPB IV SCH ×2 (03:04)
[2022-08-10 05:27] LABS: BASOPHILS # (AUTO) 0.1 10^3/uL (0.0-0.1); BASOPHILS % (AUTO) 1 % (0-10); EOSINOPHILS # (AUTO) 0.5 10^3/uL (0.0-0.3); EOSINOPHILS % (AUTO) 3 % (0-10); HEMATOCRIT 29 % (35-52); HEMOGLOBIN 9.5 g/dL (11.5-16.0); LYMPHOCYTES # (AUTO) 2.4 10^3/uL (1.0-4.0); LYMPHOCYTES % (AUTO) 15 % (12-44); MEAN CORPUSCULAR HEMOGLOBIN 30 pg (25-34); MEAN CORPUSCULAR HGB CONC 33 g/dL (32-36); MEAN CORPUSCULAR VOLUME 92 fL (80-99); MEAN PLATELET VOLUME 9.6 fL (9.0-12.2); MONOCYTES # (AUTO) 1.4 10^3/uL (0.0-1.0); MONOCYTES % (AUTO) 9 % (0-12); NEUTROPHILS % (AUTO) 71 % (42-75); PLATELET COUNT 459 10^3/uL (130-400); WHITE BLOOD COUNT 15.6 10^3/uL (4.3-11.0)
[2022-08-10 05:33] LABS: ALBUMIN 2.5 GM/DL (3.2-4.5)
[2022-08-10 05:34] LABS: CALCIUM 8.3 MG/DL (8.5-10.1)
[2022-08-10 05:36] LABS: TOTAL PROTEIN 6.8 GM/DL (6.4-8.2)
[2022-08-10 05:37] LABS: BILIRUBIN,TOTAL 0.5 MG/DL (0.1-1.0)
[2022-08-10 05:39] LABS: CREATININE SERUM 0.68 MG/DL (0.60-1.30); PHOSPHORUS 2.5 MG/DL (2.3-4.7)
[2022-08-10 05:42] LABS: MAGNESIUM 1.9 MG/DL (1.6-2.4)
[2022-08-10] MEDS: KCL 20 MEQ TAB (K-DUR) PO SCH (06:00)
[2022-08-10] MEDS: POTASSIUM CL 10MEQ/50ML IVPB 50 ML IV SCH (06:00)
[2022-08-10] MEDS: MAGNESIUM 1 GM/100 ML IVPB 100 ML IV SCH (06:00)
[2022-08-10] MEDS: VANCOMYCIN 1250 MG/NS 250 ML IVPB IV SCH ×2 (06:57)
[2022-08-10] MEDS: CATHETER FLUSH 10 ML SYR IVP SCH ×3 (06:58→20:22)
[2022-08-10] MEDS ORDERED: ASPIRIN 81 MG CHEW (CHILDREN'S ASA) GT SCH (08:00)
--- NOTE | 2022-08-10 08:03 | Progress Note - Hospitalist ---
Subjective HPI/CC On Admission Date Seen by Provider: Aug 10, 2022 Time Seen by Provider: 11:00 Chief complaint: Sepsis HPI: This is a 72-year-old female who presented to the ER with altered mental status. Patient was found to have pneumonia. Patient has a lot of medical issues and has had a major decline in the last few years. She has difficulty with aspiration since head and neck cancer has been treated. Feeding tube maintained. Daughter at the bedside who cares for her in her home. Dr. Diane consulted. Reviewed records. Subjective/Events-last exam Patient doing really well Son at bedside Lungs are clear Moving down to fourth floor Review of Systems General: Fatigue, Malaise Focused Exam Lactate Level 08/09/22 01:55: Lactic Acid Level 0.86 Objective Exam Vital Signs Vital Signs Date Time Temp Pulse Resp B/P (MAP) Pulse Ox O2 Delivery O2 Flow Rate FiO2 08/10/22 10:00 82 17 140/59 (77) 95 Nasal Cannula 4.00 08/10/22 08:16 36.4 08/09/22 04:16 36 Capillary Refill : Less Than 3 Seconds General Appearance: No Apparent Distress, WD/WN, Chronically ill Respiratory: Lungs Clear, Normal Breath Sounds Cardiovascular: Regular Rate, Rhythm Neurologic/Psychiatric: Alert, Oriented x3, No Motor/Sensory Deficits, Normal Mood/Affect Results/Procedures Lab Laboratory Tests 08/10/22 05:15 Patient resulted labs reviewed. Assessment/Plan Assessment and Plan Assess & Plan/Chief Complaint Assessment: Sepsis Aspiration pneumonia Head and neck cancer Severe debility NSTEMI Plan: Move to fourth floor IV fluids IV antibiotics VENESSA AYALA DO Aug 10, 2022 08:03
[2022-08-10] MEDS: PANTOPRAZOLE 40 MG (PROTONIX) VIAL IV SCH (08:14)
[2022-08-10] MEDS: APIXABAN 5 MG (ELIQUIS) TABLET GT SCH ×2 (08:14→20:23)
[2022-08-10] MEDS: HYDROcodone/APAP 7.5MG-325 MG/15 ML (LORTAB) UDC GT PRN ×2 (08:15→17:30)
--- NOTE | 2022-08-10 09:01 | Cardiology Progress Note ---
Subjective Date Seen by Provider: Aug 10, 2022 Time Seen by Provider: 08:59 Subjective/Events-last exam Patient was seen at bedside, laying down comfortably Still complaining of generalized fatigue and generalized body ache in addition to back pain Review of Systems General: No Chills, No Night Sweats; Fatigue, Malaise; No Appetite, No Other HEENT: No Head Aches, No Visual Changes, No Eye Pain, No Ear Pain, No Dysphasia, No Sinus Congestion, No Post Nasal Drip, No Sore Throat, No Other Pulmonary: No Dyspnea, No Cough, No Pleuritic Chest Pain, No Other Cardiovascular: No: Chest Pain, Palpitations, Orthopnea, Paroxysmal Noc. Dyspnea, Edema, Lt Headedness, Other Focused Exam Lactate Level 08/09/22 01:55: Lactic Acid Level 0.86 Objective-Cardiology Exam Last Set of Vital Signs Vital Signs 08/09/22 08/10/22 08/10/22 04:16 08:00 08:16 Temp 36.4 Pulse 73 Resp 12 B/P (MAP) 158/82 (110) Pulse Ox 98 O2 Delivery Nasal Cannula O2 Flow Rate 4.00 FiO2 36 I&O Intake and Output 08/10/22 00:00 Intake Total 2320 ml Output Total 2175 ml Balance 145 ml Intake Oral 0 ml IV Total 2200 ml Tube Feeding 120 ml Output Urine Total 2175 ml Daily Weight Change No General: Alert, Oriented X3, Cooperative HEENT: Atraumatic, PERRLA Neck: Supple, No JVD, No Thyromegaly Lungs: Clear to Auscultation, Normal Air Movement Heart: Regular Rate, Normal S1, Normal S2, No Murmurs Abdomen: Normal Bowel Sounds, Soft, No Tenderness, No Hepatosplenomegaly, No Masses Extremities: No Clubbing, No Cyanosis, No Edema, Normal Pulses, No Tenderness/Swelling Skin: No Rashes, No Breakdown, No Significant Lesion Neuro: Normal Gait, Normal Speech, Strength at 5/5 X4 Ext, Normal Tone, Sensation Intact Psych/Mental Status: Mental Status NL, Mood NL Results Lab Laboratory Tests 08/10/22 05:15 A/P-Cardiology Admission Diagnosis Sepsis Hypotension Type II myocardial infarction Paroxysmal atrial fibrillation Assessment/Plan Hypotension, probably secondary to sepsis and pneumonia. Responded to IV fluids, blood pressure is better today. 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 Started on azithromycin, piperacillin and vancomycin Managed by medical team History of paroxysmal atrial fibrillation, currently in sinus rhythm Mild elevation in troponin level, type II myocardial infarction, probably secondary to hypotension, underlying coronary artery disease cannot be excluded Type II myocardial infarction Last stress test was done in May 2016 with no significant ischemia or infarction with ejection fraction 76% 2D echo was done in November 2020 with normal LV function, EF 60 to 65%, grade 1 diastolic dysfunction, PA pressure 25 to 30 mmHg History of AVNRT Had ablation done by Dr. Ruiz in January 2018 Had implantable loop monitor done in March 2018, no documented atrial fibrillation was noted. Had atrial fibrillation episode in July 2022 during hospitalization Peripheral arterial disease History of balloon angioplasty of the left SFA and common iliac artery in May [address] Be, stenting to the same artery done by Dr. Cruz in February 2014. At that time she was noted to have bilateral iliac stents Currently following with [facility] vascular group in [place] History of pulmonary embolism She has been maintained on Eliquis History of CVA, right-sided hemiparesis with dysarthria. Had left carotid occlusion in December 2014 History of feeding tube/PEG tube placement in July 2021 Carotid stenosis, chronic occlusion of the left internal carotid artery. The right has mild to moderate disease COPD followed by primary care team History of rheumatoid and degenerative arthritis History of tobaccoism. History of total knee replacement by Dr. 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
--- NOTE | 2022-08-10 09:44 | Tele-ICU Progress Note ---
Progress Note video rounds completed 72 y/o f admitted with PNA and NSTEMI Cardiology following for WA and a fib On apixaban Currently in sinus . Troponin down trending IMP: PNA and NSTEMI PLAN: antibioticxs, and cardiology following Focused Exam Lactate Level 08/09/22 01:55: Lactic Acid Level 0.86 Height, Weight, BMI Height: 5'2.00" Weight: 180lbs. 0.0oz. 81.686652rt; 28.24 BMI Method:Actual Labs Laboratory Tests 08/10/22 05:15 Results Results/Procedures Labs Laboratory Tests 08/09/22 01:55 08/10/22 05:15 Patient resulted labs reviewed. Results Labs Labs Laboratory Tests 08/10/22 05:15: White Blood Count 15.6H, Red Blood Count 3.16L, Hemoglobin 9.5L, Hematocrit 29L, Mean Corpuscular Volume 92, Mean Corpuscular Hemoglobin 30, Mean Corpuscular Hemoglobin Concent 33, Red Cell Distribution Width 15.4H, Platelet Count 459H, Mean Platelet Volume 9.6, Immature Granulocyte % (Auto) 2, Neutrophils (%) (Auto) 71, Lymphocytes (%) (Auto) 15, Monocytes (%) (Auto) 9, Eosinophils (%) (Auto) 3, Basophils (%) (Auto) 1, Neutrophils # (Auto) 11.0H, Lymphocytes # (Auto) 2.4, Monocytes # (Auto) 1.4H, Eosinophils # (Auto) 0.5H, Basophils # (Auto) 0.1, Immature Granulocyte # (Auto) 0.2H, Sodium Level 139, Potassium Level 4.0, Chloride Level 108H, Carbon Dioxide Level 21, Anion Gap 10, Blood Urea Nitrogen 12, Creatinine 0.68, Estimat Glomerular Filtration Rate 92, BUN/Creatinine Ratio 18, Glucose Level 87, Calcium Level 8.3L, Corrected Calcium 9.5, Phosphorus Level 2.5, Magnesium Level 1.9, Total Bilirubin 0.5, Aspartate Amino Transf (AST/SGOT) 24, Alanine Aminotransferase (ALT/SGPT) 18, Alkaline Phosphatase 140H, Total Protein 6.8, Albumin 2.5L Microbiology 08/09/22 MRSA Screen - Final, Complete MRSA not isolated JONAS MADISON MD Aug 10, 2022 09:44
[2022-08-10 15:41] VITALS: BP 166/79
[2022-08-10 19:50] VITALS: BP 155/61
[2022-08-10] MEDS: AtorvaSTATin TABLET 10 MG TABLET GT SCH (20:23)
[2022-08-10 23:18] VITALS: BP 149/70
[2022-08-11] MEDS: PIPERACILLIN SODIUM/TAZOBACTAM 4.5 GM in NS (IVPB) 100 ML IV SCH ×3 (00:09→16:45)
[2022-08-11 03:28] VITALS: BP 166/72
[2022-08-11] MEDS: AZITHROMYCIN 250 MG/NS 250 ML IVPB IV SCH ×2 (03:38)
[2022-08-11] MEDS ORDERED: TROUGH ORDER-PHARMACY XX ONE (05:00)
[2022-08-11 05:20] LABS: BASOPHILS # (AUTO) 0.1 10^3/uL (0.0-0.1); BASOPHILS % (AUTO) 1 % (0-10); EOSINOPHILS % (AUTO) 0 % (0-10); HEMATOCRIT 31 % (35-52); HEMOGLOBIN 9.9 g/dL (11.5-16.0); LYMPHOCYTES # (AUTO) 1.8 10^3/uL (1.0-4.0); LYMPHOCYTES % (AUTO) 10 % (12-44); MEAN CORPUSCULAR HEMOGLOBIN 30 pg (25-34); MEAN CORPUSCULAR HGB CONC 33 g/dL (32-36); MEAN CORPUSCULAR VOLUME 92 fL (80-99); MEAN PLATELET VOLUME 9.3 fL (9.0-12.2); MONOCYTES % (AUTO) 6 % (0-12); NEUTROPHILS # (AUTO) 14.4 10^3/uL (1.8-7.8); NEUTROPHILS % (AUTO) 82 % (42-75); PLATELET COUNT 514 10^3/uL (130-400); WHITE BLOOD COUNT 17.6 10^3/uL (4.3-11.0)
[2022-08-11 05:28] LABS: ALBUMIN 2.8 GM/DL (3.2-4.5)
[2022-08-11 05:29] LABS: POTASSIUM 3.8 MMOL/L (3.6-5.0)
[2022-08-11 05:30] LABS: CALCIUM 8.9 MG/DL (8.5-10.1)
[2022-08-11 05:31] LABS: TOTAL PROTEIN 7.7 GM/DL (6.4-8.2)
[2022-08-11 05:33] LABS: BILIRUBIN,TOTAL 0.7 MG/DL (0.1-1.0)
[2022-08-11 05:35] LABS: CREATININE SERUM 0.67 MG/DL (0.60-1.30)
[2022-08-11 05:37] LABS: MAGNESIUM 1.8 MG/DL (1.6-2.4)
[2022-08-11] MEDS: CATHETER FLUSH 10 ML SYR IVP SCH ×2 (06:25→14:00)
[2022-08-11] MEDS: VANCOMYCIN 1250 MG/NS 250 ML IVPB IV SCH ×2 (06:25)
[2022-08-11] MEDS: RT-ALBUTEROL SULF 2.5 MG/3 ML PRE-MIX VIAL INH SCH ×4 (07:17→20:13)
[2022-08-11 07:28] VITALS: BP 175/75
[2022-08-11] MEDS: PANTOPRAZOLE 40 MG (PROTONIX) VIAL IV SCH (08:30)
[2022-08-11] MEDS: APIXABAN 5 MG (ELIQUIS) TABLET GT SCH ×2 (08:31→21:53)
[2022-08-11] MEDS: ASPIRIN 81 MG CHEW (CHILDREN'S ASA) GT SCH (08:34)
--- NOTE | 2022-08-11 08:42 | Progress Note - Cardiology ---
Cardiology SOAP Progress Note Subjective: Lying in bed Continues to feel SOB No c/o CP, palpitations Objective: I&O/Vital Signs 08/11/22 08/11/22 08/11/22 08/11/22 03:28 07:18 07:28 08:00 Temp 36.6 37.1 Pulse 89 86 Resp 18 20 B/P (MAP) 166/72 (103) 175/75 (108) Pulse Ox 96 96 95 95 O2 Delivery Nasal Cannula High Flow N/C Nasal Cannula Nasal Cannula O2 Flow Rate 3.00 3.00 3.00 3.00 08/11/22 08/11/22 10:23 11:17 Temp 36.2 Pulse 90 Resp 20 B/P (MAP) 157/69 (98) Pulse Ox 95 O2 Delivery High Flow N/C Nasal Cannula O2 Flow Rate 3.00 3.00 08/11/22 00:00 Intake Total 520 ml Output Total 500 ml Balance 20 ml Weight (Pounds): 180 Weight (Ounces): 0.0 Weight (Calculated Kilograms): 81.971661 Results/Procedures: Labs Laboratory Tests 08/11/22 05:15: White Blood Count 17.6H, Red Blood Count 3.32L, Hemoglobin 9.9L, Hematocrit 31L, Mean Corpuscular Volume 92, Mean Corpuscular Hemoglobin 30, Mean Corpuscular Hemoglobin Concent 33, Red Cell Distribution Width 15.4H, Platelet Count 514H, Mean Platelet Volume 9.3, Immature Granulocyte % (Auto) 2, Neutrophils (%) (Auto) 82H, Lymphocytes (%) (Auto) 10L, Monocytes (%) (Auto) 6, Eosinophils (%) (Auto) 0, Basophils (%) (Auto) 1, Neutrophils # (Auto) 14.4H, Lymphocytes # (Auto) 1.8, Monocytes # (Auto) 1.0, Eosinophils # (Auto) 0.0, Basophils # (Auto) 0.1, Immature Granulocyte # (Auto) 0.3H, Sodium Level 138, Potassium Level 3.8, Chloride Level 105, Carbon Dioxide Level 23, Anion Gap 10, Blood Urea Nitrogen 10, Creatinine 0.67, Estimat Glomerular Filtration Rate 92, BUN/Creatinine Ratio 15, Glucose Level 120H, Calcium Level 8.9, Corrected Calcium 9.9, Magnesium Level 1.8, Total Bilirubin 0.7, Aspartate Amino Transf (AST/SGOT) 26, Alanine Aminotransferase (ALT/SGPT) 20, Alkaline Phosphatase 140H, Total Protein 7.7, Albumin 2.8L, Vancomycin Level Trough 7.5L Microbiology 08/09/22 MRSA Screen - Final, Complete MRSA not isolated 08/09/22 Urine Culture - Final, Complete NO GROWTH 08/09/22 Blood Culture - Preliminary, Resulted No growth A/P: Assessment: Pneumonia - management per medical services Uncontrolled HTN Paroxysmal atrial fibrillation seen during hospitalization (Jul 2022) - OAC with Eliquis GI - S/p gastric tube placement in January 2018 with removal - failed swallow eval and barium swallow on 07-16-21 - PEG tube placement on 07-17-21 Oncology - Recurrent xqpuy-aw-sok-mouth sq cell CA that was treated with surgery and chemoradiation subsequently (completed 08/22/19) and is managed by her oncologist Dr Aguila Typical AVNRT - treated by Dr Ruiz at [facility] with AVN modification/slow pathway ablation 01/22/18. - Has had ILR since 04/06/18 at the recommendation of Dr Ruiz. No atrial flutter/fib or other arrhythmia was documented - ILR has reached [employer] in January 11 (pt and family do not wish to have it removed or replaced per office visit of May 09, 2022). PAF documented during hosp of Jul 2022 H/o nonspecific chest discomfort - MPI of 05/30/16 showed non ischemia or infarction and LVEF 76% - Echocardiogram of 11-16-20 showed normal global LV systolic function with an ejection fraction of approx 60-65%. Grade 1 diastolic dysfunction. 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 - Chronically occluded L ICA; 40% R ICA disease per u/s of May 2021 COPD - Managed by [facility] Rheumatoid and degenerative arthritis - managed by PCP H/O tobaccoism - quit in 2014 PAD - with history of ballooning and stent in of L SFA and common iliac in May [address] Sevilla and repeat intervention and stenting to the same artery by Dr Engel in Feb 2014. At the time of the angio by Dr Engel in Feb 2014, pt was also found to have patent bilat iliac stents. In Mar 2014 she underwent atherectomy and angioplasty of R sup fem, pop and ant tibial arteries by Dr Engel. - - - Currently, her PAD is being followed by Dr Hewitt (Summer Nair) - Severe bilat PAD seen on BRENDA of 11-25-21 H/o borderline diabetes - managed by PCP Surgeries: - S/p R TKR in December 2016 (Dr Flores). 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 S/P debridement of left shoulder d/t spider bite (Jul 2014) Mild Alk P elevation - for which eval and f/u is with her pcp and her oncologist Plan: Records per Dr. Diane reviewed Uncontrolled HTN - adjust regimen Management of pneumonia per medical services Monitor lab closely Replace electrolytes as indicated MARJORIE EDUARDO Aug 11, 2022 08:42
[2022-08-11] MEDS ORDERED: amLODIPine 5 MG (NORVASC) TAB PO ONE (08:45)
[2022-08-11] MEDS ORDERED: amLODIPine 5 MG (NORVASC) TAB PO SCH (09:00)
[2022-08-11 11:17] VITALS: BP 157/69
--- NOTE | 2022-08-11 11:48 | Progress Note - Cardiology ---
Cardiology SOAP Progress Note Subjective: Communication difficult due to speech impairment (chronic) No cp or palp or syncope Shortness of breath with activity No n/v/d Gen weakness Objective: I&O/Vital Signs 08/11/22 08/11/22 08/11/22 08/11/22 03:28 07:18 07:28 08:00 Temp 36.6 37.1 Pulse 89 86 Resp 18 20 B/P (MAP) 166/72 (103) 175/75 (108) Pulse Ox 96 96 95 95 O2 Delivery Nasal Cannula High Flow N/C Nasal Cannula Nasal Cannula O2 Flow Rate 3.00 3.00 3.00 3.00 08/11/22 08/11/22 10:23 11:17 Temp 36.2 Pulse 90 Resp 20 B/P (MAP) 157/69 (98) Pulse Ox 95 O2 Delivery High Flow N/C Nasal Cannula O2 Flow Rate 3.00 3.00 08/10/22 23:59 Intake Total 520 ml Output Total 500 ml Balance 20 ml Weight (Pounds): 180 Weight (Ounces): 0.0 Weight (Calculated Kilograms): 81.949753 Constitutional: AAO x 3, well-developed, well-nourished Respiratory: No accessory muscle use; chest expansion is symmetric, other (good air entry, diminished at bases, basal coarse crackles) Cardiovascular: regular rate-rhythm, S1 and S2, systolic murmur (soft AUREA at card base) Gastrointestional: No tender; soft; No guarding, No rebound; audible bowel sounds Extremities: No clubbing, No cyanosis, No significant edema Neurologic/Psychiatric: oriented x 3, other (R-sided weakness) Skin: warm/dry; No cyanosis, No rash on exposed areas, No ulcerations on ex posed areas Results/Procedures: Labs Laboratory Tests 08/11/22 05:15: White Blood Count 17.6H, Red Blood Count 3.32L, Hemoglobin 9.9L, Hematocrit 31L, Mean Corpuscular Volume 92, Mean Corpuscular Hemoglobin 30, Mean Corpuscular Hemoglobin Concent 33, Red Cell Distribution Width 15.4H, Platelet Count 514H, Mean Platelet Volume 9.3, Immature Granulocyte % (Auto) 2, Neutrophils (%) (Auto) 82H, Lymphocytes (%) (Auto) 10L, Monocytes (%) (Auto) 6, Eosinophils (%) (Auto) 0, Basophils (%) (Auto) 1, Neutrophils # (Auto) 14.4H, Lymphocytes # (Auto) 1.8, Monocytes # (Auto) 1.0, Eosinophils # (Auto) 0.0, Basophils # (Auto) 0.1, Immature Granulocyte # (Auto) 0.3H, Sodium Level 138, Potassium Level 3.8, Chloride Level 105, Carbon Dioxide Level 23, Anion Gap 10, Blood Urea Nitrogen 10, Creatinine 0.67, Estimat Glomerular Filtration Rate 92, BUN/Creatinine Ratio 15, Glucose Level 120H, Calcium Level 8.9, Corrected Calcium 9.9, Magnesium Level 1.8, Total Bilirubin 0.7, Aspartate Amino Transf (AST/SGOT) 26, Alanine Aminotransferase (ALT/SGPT) 20, Alkaline Phosphatase 140H, Total Protein 7.7, Albumin 2.8L, Vancomycin Level Trough 7.5L Microbiology 08/09/22 MRSA Screen - Final, Complete MRSA not isolated 08/09/22 Urine Culture - Final, Complete NO GROWTH 08/09/22 Blood Culture - Preliminary, Resulted No growth Laboratory Tests 08/10/22 05:15 08/11/22 05:15 A/P: Assessment: Pneumonia - management per medical services Uncontrolled HTN Paroxysmal atrial fibrillation seen during hospitalization (Jul 2022) - OAC with Eliquis GI - S/p gastric tube placement in January 2018 with removal - failed swallow eval and barium swallow on 07-16-21 - PEG tube placement on 07-17-21 Oncology - 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 - Has had ILR since 04/06/18 at the recommendation of Dr Ruiz. No atrial flutter/fib or other arrhythmia was documented - ILR has reached AUDIT ASSOCIATE in January 2022 (pt and family do not wish to have it removed or replaced per office visit of May 09, 2022). PAF documented during hosp of Jul 2022 H/o nonspecific chest discomfort - MPI of 05/30/16 showed non ischemia or infarction and LVEF 76% - Echocardiogram of 5-7-21 showed normal global LV systolic function with an ejection fraction of approx 60-65%. Grade 1 diastolic dysfunction. 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 - Chronically occluded L ICA; 40% R ICA disease per u/s of May 2021 COPD - Managed by [facility] Rheumatoid and degenerative arthritis - managed by PCP H/O tobaccoism - quit in 2014 PAD - with history of ballooning and stent in of L SFA and common iliac in May [address] Sevilla and repeat intervention and stenting to the same artery by Dr Timothy comer in Feb 2014. At the time of the angio by Dr Engel in Feb 2014, pt was also found to have patent bilat iliac stents. In Mar 2014 she underwent atherectomy and angioplasty of R sup fem, pop and ant tibial arteries by Dr Engel. - - - Currently, her PAD is being followed by Dr Hewitt (Summer Nair) - Severe bilat PAD seen on BRENDA of 11-25-21 H/o borderline diabetes - managed by PCP Surgeries: - S/p R TKR in December 2016 (Dr Flores). 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 S/P debridement of left shoulder d/t spider bite (Jul 2014) Mild Alk P elevation - for which eval and f/u is with her pcp and her oncologist Plan: I interviewed and examined the patient and reviewed her records Uncontrolled HTN - adjust regimen Management of pneumonia per Medical services Monitor lab closely Replace electrolytes as indicated SKYLAR LOPEZ MD FACP FAC CCDS Aug 11, 2022 11:48
[2022-08-11] MEDS ORDERED: SULF473O9 PO (13:02)
[2022-08-11] MEDS ORDERED: GABA250S2 PO (13:06)
[2022-08-11] MEDS ORDERED: HYDR118S10 PO (13:06)
[2022-08-11] MEDS ORDERED: CETI1SOL71 PO (13:06)
--- NOTE | 2022-08-11 13:19 | Progress Note ---
JOSE BRUNNER 08/11/22 1319: Subjective Date Seen by a Provider: Aug 11, 2022 Time Seen by a Provider: 10:00 Subjective/Events-last exam Ms. Coburn is a 72 y/o female with a PMHx of COPD, head/neck cancer with aspiration risk and G-tube placement, CVA, DM, anxiety, depression, and atrial fibrillation who has been admitted to the Hospitalist service for management of sepsis likely secondary to pneumonia. The patient is resting calmly in bed this morning. Patient states she is feeling better today versus yesterday. Patient denies head ache, CP, or SOA, and endorses abdominal pain. The patient is solely fed through her G-tube, however she has been consuming ice by mouth. Due to the patient's history of cancer and radiation with surgical management to the head and neck, the patient has a high aspiration risk. Discussed with the patient's daughter to discontinue PO ice to prevent aspiration and worsening of pneumonia. Review of Systems General: No Fatigue HEENT: No Head Aches Pulmonary: No Dyspnea Cardiovascular: No: Chest Pain Gastrointestinal: Abdominal Pain; No: Nausea, Vomiting Focused Exam Lactate Level 08/09/22 01:55: Lactic Acid Level 0.86 Objective Exam Last Set of Vital Signs Vital Signs Date Time Temp Pulse Resp B/P (MAP) Pulse Ox O2 Delivery O2 Flow Rate FiO2 08/11/22 11:17 36.2 90 20 157/69 (98) Nasal Cannula 3.00 08/11/22 10:23 95 08/09/22 04:16 36 Capillary Refill : Less Than 3 Seconds I&O Intake and Output 08/11/22 00:00 Intake Total 1032.5 ml Output Total 1275 ml Balance -242.5 ml Intake Oral 0 ml IV Total 462.5 ml Tube Feeding 340 ml Other 230 ml Output Urine Total 1275 ml # Bowel Movements 2 General: Alert, Other (oriented to person, not place or time/date) Lungs: Other (coarse L-sided breath sounds, clear R-sided breath sounds) Heart: Regular Rate Abdomen: Normal Bowel Sounds, Soft, No Tenderness, Other (G-tube in place, no erythema of skin, no drainage at site) Extremities: No Edema Neuro: Normal Speech Psych/Mental Status: Mood NL Results Lab Laboratory Tests 08/11/22 05:15: White Blood Count 17.6H, Red Blood Count 3.32L, Hemoglobin 9.9L, Hematocrit 31L, Mean Corpuscular Volume 92, Mean Corpuscular Hemoglobin 30, Mean Corpuscular Hemoglobin Concent 33, Red Cell Distribution Width 15.4H, Platelet Count 514H, Mean Platelet Volume 9.3, Immature Granulocyte % (Auto) 2, Neutrophils (%) (Auto) 82H, Lymphocytes (%) (Auto) 10L, Monocytes (%) (Auto) 6, Eosinophils (%) (Auto) 0, Basophils (%) (Auto) 1, Neutrophils # (Auto) 14.4H, Lymphocytes # (Auto) 1.8, Monocytes # (Auto) 1.0, Eosinophils # (Auto) 0.0, Basophils # (Auto) 0.1, Immature Granulocyte # (Auto) 0.3H, Sodium Level 138, Potassium Level 3.8, Chloride Level 105, Carbon Dioxide Level 23, Anion Gap 10, Blood Urea Nitrogen 10, Creatinine 0.67, Estimat Glomerular Filtration Rate 92, BUN/Creatinine Ratio 15, Glucose Level 120H, Calcium Level 8.9, Corrected Calcium 9.9, Magnesium Level 1.8, Total Bilirubin 0.7, Aspartate Amino Transf (AST/SGOT) 26, Alanine Aminotransferase (ALT/SGPT) 20, Alkaline Phosphatase 140H, Total Protein 7.7, Albumin 2.8L, Vancomycin Level Trough 7.5L Microbiology 08/09/22 MRSA Screen - Final, Complete MRSA not isolated 08/09/22 Urine Culture - Final, Complete NO GROWTH 08/09/22 Blood Culture - Preliminary, Resulted No growth Diagnosis/Problems Diagnosis/Problems (1) Elevated troponin Status: Acute Assessment & Plan: Troponin 0.057 -> 0.039 on 08/09 Appreciate plan per Cardiology Secondary prevention of CAD with ASA 81mg and atorvastatin 10mg GT daily (2) Hypertension Status: Chronic Assessment & Plan: Continue to monitor BP Amlodipine 5mg GT daily (3) Atrial fibrillation Status: Chronic Assessment & Plan: Continue Eliquis 5mg BID Atorvastatin 10mg GT daily ASA 81mg GT daily (4) Aspiration pneumonia Status: Acute Assessment & Plan: -NPO -Azithromycin 250mg Q24H -Zosyn 4.5q Q8H IV -Supplemental O2 - baseline is 2.5L -PT/OT -Patient had a CT on 08/07 that demonstrated patchy consolidation within the left upper and lower lobes concerning for aspiration PNA and prominent mediastinal lymph nodes Qualifiers: Qualified Codes: J69.0 - Pneumonitis due to inhalation of food and vomit (5) Sepsis Status: Resolved Assessment & Plan: Sepsis qualifiers: -Leukocytosis of 15.8 and fever of 38.4 upon admission -Fever has since resolved, continue to monitor Resolution Date/Time: 07/15/22 @ 12:28 SATNAM MIKE MD 08/11/22 1459: Assessment/Plan Assessment/Plan Assess & Plan/Chief Complaint See problem list Supervisory-Addendum Brief Verification & Attestation Participated in pt care: history, MDM, physical Personally performed: exam, history, MDM, supervision of care Care discussed with: Medical Student Procedures: n/a I personally saw and examined patient and repeated the history and exam which confirmed that documented by the medical student. I directed the plan of care as documented by the medical student. JOSE BRUNNER Aug 11, 2022 13:19 SATNAM MIKE MD Aug 11, 2022 14:59
[2022-08-11] MEDS ORDERED: ARTIFICAL TEARS 0.4 ML UNIT DOSE (REFRESH PLUS) OU PRN (15:15)
[2022-08-11 16:09] VITALS: BP 152/70
[2022-08-11 20:11] VITALS: BP 176/77
[2022-08-11] MEDS ORDERED: NON-FORMULARY MEDICATION 1 EA EA (Budesonide/Glycopyr/Formoterol (Breztri Aerosphere Inhal IH SCH (21:00)
[2022-08-11] MEDS ORDERED: NON-FORMULARY MEDICATION 1 EA EA (Cyclosporine (Restasis) 1 DROP) OU SCH (21:00)
[2022-08-11] MEDS ORDERED: GABAPENTIN PO SCH (21:00)
[2022-08-11] MEDS ORDERED: NON-FORMULARY MEDICATION 1 EA EA (Duloxetine HCl (Cymbalta) 60 MG) PO SCH (21:00)
[2022-08-11] MEDS: MONTELUKAST 10 MG (SINGULAIR) TAB PO SCH (21:52)
[2022-08-11] MEDS: DULoxetine 30 MG (CYMBALTA) CAP PO SCH (21:52)
[2022-08-11] MEDS: GABAPENTIN 300 MG (NEURONTIN) CAP PEG SCH (21:53)
[2022-08-11] MEDS: AtorvaSTATin TABLET 10 MG TABLET GT SCH (21:53)
[2022-08-11 23:43] VITALS: BP 172/81
[2022-08-12] VITALS (8 sets, daily range): BP systolic 136–175; BP diastolic 64–81
[2022-08-12] MEDS: PIPERACILLIN SODIUM/TAZOBACTAM 4.5 GM in NS (IVPB) 100 ML IV SCH ×3 (00:22→16:35)
[2022-08-12] MEDS: CATHETER FLUSH 10 ML SYR IVP SCH ×3 (00:22→22:32)
[2022-08-12] MEDS ORDERED: AZITHROMYCIN INJECTION 500 MG/5 ML VIAL ONE (03:59)
[2022-08-12] MEDS: AZITHROMYCIN 250 MG/NS 250 ML IVPB IV SCH ×2 (04:05)
[2022-08-12] MEDS ORDERED: TROUGH ORDER-PHARMACY XX ONE (05:00)
[2022-08-12 05:10] LABS: BASOPHILS # (AUTO) 0.1 10^3/uL (0.0-0.1); BASOPHILS % (AUTO) 1 % (0-10); EOSINOPHILS # (AUTO) 0.1 10^3/uL (0.0-0.3); EOSINOPHILS % (AUTO) 1 % (0-10); HEMATOCRIT 28 % (35-52); HEMOGLOBIN 9.1 g/dL (11.5-16.0); LYMPHOCYTES # (AUTO) 2.9 10^3/uL (1.0-4.0); LYMPHOCYTES % (AUTO) 20 % (12-44); MEAN CORPUSCULAR HEMOGLOBIN 30 pg (25-34); MEAN CORPUSCULAR HGB CONC 33 g/dL (32-36); MEAN CORPUSCULAR VOLUME 90 fL (80-99); MEAN PLATELET VOLUME 9.4 fL (9.0-12.2); MONOCYTES # (AUTO) 1.1 10^3/uL (0.0-1.0); MONOCYTES % (AUTO) 8 % (0-12); NEUTROPHILS # (AUTO) 9.7 10^3/uL (1.8-7.8); NEUTROPHILS % (AUTO) 69 % (42-75); PLATELET COUNT 520 10^3/uL (130-400)
[2022-08-12 05:24] LABS: ALBUMIN 2.6 GM/DL (3.2-4.5); POTASSIUM 3.2 MMOL/L (3.6-5.0)
[2022-08-12 05:26] LABS: CALCIUM 8.6 MG/DL (8.5-10.1)
[2022-08-12 05:27] LABS: TOTAL PROTEIN 7.2 GM/DL (6.4-8.2)
[2022-08-12 05:29] LABS: BILIRUBIN,TOTAL 0.9 MG/DL (0.1-1.0)
[2022-08-12 05:30] LABS: CREATININE SERUM 0.63 MG/DL (0.60-1.30)
[2022-08-12 05:33] LABS: MAGNESIUM 1.7 MG/DL (1.6-2.4)
[2022-08-12] MEDS: RT--FLUTICASONE/SALMETEROL 232-14 (AIRDUO RespiCLICK) IH SCH ×2 (07:16→21:50)
[2022-08-12] MEDS: RT-ALBUTEROL SULF 2.5 MG/3 ML PRE-MIX VIAL INH SCH ×2 (07:16→21:50)
[2022-08-12] MEDS: UMECLIDINIUM BROMIDE (INCRUSE ELLIPTA) 7'S IH SCH (07:16)
--- NOTE | 2022-08-12 08:34 | Progress Note - Cardiology ---
Cardiology SOAP Progress Note Subjective: Lying in bed Feels SOB is better today No c/o CP or palpitations No c/o abd discomfort, n/v/d Objective: I&O/Vital Signs 08/12/22 08/12/22 08/13/22 08/13/22 21:51 23:54 03:05 07:04 Temp 36.6 36.8 Pulse 80 82 Resp 18 18 B/P (MAP) 136/67 (90) 140/87 (104) Pulse Ox 98 96 95 92 O2 Delivery High Flow N/C High Flow N/C High Flow N/C High Flow N/C O2 Flow Rate 2.00 2.00 2.00 2.00 2.00 2.00 08/13/22 07:43 Temp 35.6 Pulse 75 Resp 18 B/P (MAP) 151/67 (95) Pulse Ox 94 O2 Delivery Nasal Cannula 08/13/22 00:00 Intake Total 1680 ml Output Total 1950 ml Balance -270 ml Weight (Pounds): 180 Weight (Ounces): 0.0 Weight (Calculated Kilograms): 81.540647 Constitutional: AAO x 3, well-developed, well-nourished Respiratory: No accessory muscle use; chest expansion is symmetric, other (good air entry, diminished at bases, basal coarse crackles) Cardiovascular: regular rate-rhythm, S1 and S2, systolic murmur (soft AUREA at card base) Gastrointestional: No tender; soft; No guarding, No rebound; audible bowel sounds, other (PEG tube in place) Extremities: No clubbing, No cyanosis, No significant edema Neurologic/Psychiatric: oriented x 3, other (R-sided weakness with delayed speech - chronic) Skin: warm/dry; No cyanosis, No rash on exposed areas, No ulcerations on exposed areas Results/Procedures: Labs Laboratory Tests 08/13/22 05:15: White Blood Count 11.3H, Red Blood Count 3.44L, Hemoglobin 10.2L, Hematocrit 31L , Mean Corpuscular Volume 90, Mean Corpuscular Hemoglobin 30, Mean Corpuscular Hemoglobin Concent 33, Red Cell Distribution Width 15.2H, Platelet Count 625H, Mean Platelet Volume 9.0, Immature Granulocyte % (Auto) 2, Neutrophils (%) (Auto) 62, Lymphocytes (%) (Auto) 24, Monocytes (%) (Auto) 9, Eosinophils (%) (Auto) 2, Basophils (%) (Auto) 1, Neutrophils # (Auto) 7.1, Lymphocytes # (Auto) 2.7, Monocytes # (Auto) 1.0, Eosinophils # (Auto) 0.3, Basophils # (Auto) 0.1, Immature Granulocyte # (Auto) 0.2H, Sodium Level 137, Potassium Level 3.3L, Chloride Level 101, Carbon Dioxide Level 27, Anion Gap 9, Blood Urea Nitrogen 9, Creatinine 0.65, Estimat Glomerular Filtration Rate 93, BUN/Creatinine Ratio 14, Glucose Level 90, Calcium Level 8.7, Corrected Calcium 9.7, Magnesium Level 1.8, Total Bilirubin 0.9, Aspartate Amino Transf (AST/SGOT) 30, Alanine Aminotransferase (ALT/SGPT) 21, Alkaline Phosphatase 112, Total Protein 7.6, Albumin 2.7L Microbiology 08/09/22 MRSA Screen - Final, Complete MRSA not isolated 08/09/22 Urine Culture - Final, Complete NO GROWTH 08/09/22 Blood Culture - Preliminary, Resulted No growth A/P: Assessment: Pneumonia - management per medical services Uncontrolled HTN - increase anti-hypertensive regimen Paroxysmal atrial fibrillation seen during hospitalization (Jul 2022) - OAC with Eliquis GI - S/p gastric tube placement in January 2018 with removal - failed swallow eval and barium swallow on 07-16-21 - PEG tube placement on 07-17-21 Oncology - Recurrent bqrah-kw-yaj-mouth sq cell CA that was treated with surgery and chemoradiation subsequently (completed 08/22/19) and is managed by her oncologist Dr Aguila 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 - Has had ILR since 04/06/18 at the recommendation of Dr Ruiz. No atrial flutter/fib or other arrhythmia was documented - ILR has reached NUCLEAR PLANT TECHNICAL ADVISOR in January 2022 (pt and family do not wish to have it removed or replaced per office visit of May 09, 2022). PAF documented during hosp of Jul 2022 H/o nonspecific chest discomfort - MPI of 05/30/16 showed non ischemia or infarction and LVEF 76% - Echocardiogram of 11-16-20 showed normal global LV systolic function with an ejection fraction of approx 60-65%. Grade 1 diastolic dysfunction. 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 - Chronically occluded L ICA; 40% R ICA disease per u/s of May 2021 COPD - Managed by [facility] Rheumatoid and degenerative arthritis - managed by PCP H/O tobaccoism - quit in 2014 PAD - with history of ballooning and stent in of L SFA and common iliac in May [address] Sevilla and repeat intervention and stenting to the same artery by Dr Engel in Feb 2014. At the time of the angio by Dr Engel in Feb 2014, pt was also found to have patent bilat iliac stents. In Mar 2014 she underwent atherectomy and angioplasty of R sup fem, pop and ant tibial arteries by Dr Engel. - - - Currently, her PAD is being followed by Dr Hewitt (Summer Denson) - Severe bilat PAD seen on BRENDA of 11-25-21 H/o borderline diabetes - managed by PCP Surgeries: - S/p R TKR in December 2016 (Dr Flores). 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 S/P debridement of left shoulder d/t spider bite (Jul 2014) Mild Alk P elevation - for which eval and f/u is with her pcp and her oncologist Plan: Uncontrolled HTN - increase Norvasc dose (not ideal candidate for BB tx d/t documented bradycardia overnight) Management of pneumonia per Medical services Monitor lab closely Replace electrolytes as indicated MARJORIE EDUARDO Aug 12, 2022 08:34
[2022-08-12] MEDS: APIXABAN 5 MG (ELIQUIS) TABLET GT SCH ×2 (08:58→21:13)
[2022-08-12] MEDS: ROFLUMILAST 500 MCG TAB (DALIRESP) PO SCH (08:59)
[2022-08-12] MEDS: GABAPENTIN 300 MG (NEURONTIN) CAP PEG SCH ×3 (08:59→21:14)
[2022-08-12] MEDS: DULoxetine 30 MG (CYMBALTA) CAP PO SCH ×2 (08:59→21:14)
[2022-08-12] MEDS: amLODIPine 5 MG (NORVASC) TAB GT SCH (09:00)
[2022-08-12] MEDS ORDERED: CETIRIZINE HCL PO SCH (09:00)
[2022-08-12] MEDS ORDERED: LORATADINE (CLARITIN) 10 MG TAB PO SCH (09:00)
[2022-08-12] MEDS: LORATADINE 5 MG/5 ML SOLN (CLARITIN) UDC PO SCH (09:00)
[2022-08-12] MEDS ORDERED: FAMOTIDINE 20 MG (PEPCID) TABLET PEG SCH (09:00)
[2022-08-12] MEDS ORDERED: KCL 20 MEQ TAB (K-DUR) PO NR ×2 (09:00→13:00)
[2022-08-12] MEDS: FAMOTIDINE 20 MG (PEPCID) TABLET PEG SCH (09:00)
--- NOTE | 2022-08-12 11:37 | Progress Note - Cardiology ---
Cardiology SOAP Progress Note Subjective: No cp or palp or syncope Gen weakness Chronic speech impairment and R-sided weakness No n/v/d No cp Objective: I&O/Vital Signs 08/11/22 08/12/22 08/12/22 08/12/22 23:43 03:23 07:16 07:17 Temp 36.2 36.4 36.6 Pulse 56 84 78 Resp 16 16 18 B/P (MAP) 172/81 (111) 163/64 (97) 175/73 (107) Pulse Ox 95 94 98 100 O2 Delivery Nasal Cannula Nasal Cannula High Flow N/C High Flow N/C O2 Flow Rate 2.00 2.00 2.00 2.00 08/12/22 08/12/22 08/12/22 08/12/22 08:00 08:05 10:10 11:05 Temp 36.2 36.2 37.2 Pulse 79 80 84 Resp 18 18 B/P (MAP) 165/74 (104) 159/81 (107) Pulse Ox 94 96 98 95 O2 Delivery Nasal Cannula High Flow N/C Nasal Cannula O2 Flow Rate 2.00 2.00 2.00 FiO2 28 08/12/22 00:00 Intake Total 0 ml Output Total 575 ml Balance -575 ml Weight (Pounds): 180 Weight (Ounces): 0.0 Weight (Calculated Kilograms): 81.538904 Constitutional: AAO x 3, well-developed, well-nourished Respiratory: No accessory muscle use; chest expansion is symmetric, other (good air entry, diminished at bases, basal coarse crackles) Cardiovascular: regular rate-rhythm, S1 and S2, systolic murmur (soft AUREA at card base) Gastrointestional: No tender; soft; No guarding, No rebound; audible bowel sounds, other (PEG tube in place) Extremities: No clubbing, No cyanosis, No significant edema Neurologic/Psychiatric: oriented x 3, other (R-sided weakness with delayed speech - chronic) Skin: warm/dry; No cyanosis, No rash on exposed areas, No ulcerations on exposed areas Results/Procedures: Labs Laboratory Tests 08/12/22 05:01: White Blood Count 14.0H, Red Blood Count 3.08L, Hemoglobin 9.1L, Hematocrit 28L, Mean Corpuscular Volume 90, Mean Corpuscular Hemoglobin 30, Mean Corpuscular Hemoglobin Concent 33, Red Cell Distribution Width 15.4H, Platelet Count 520H, Mean Platelet Volume 9.4, Immature Granulocyte % (Auto) 2, Neutrophils (%) (Auto) 69, Lymphocytes (%) (Auto) 20, Monocytes (%) (Auto) 8, Eosinophils (%) (Auto) 1, Basophils (%) (Auto) 1, Neutrophils # (Auto) 9.7H, Lymphocytes # (Auto) 2.9, Monocytes # (Auto) 1.1H, Eosinophils # (Auto) 0.1, Basophils # (Auto) 0.1, Immature Granulocyte # (Auto) 0.2H, Sodium Level 139, Potassium Level 3.2L, Chloride Level 104, Carbon Dioxide Level 25, Anion Gap 10, Blood Urea Nitrogen 9, Creatinine 0.63, Estimat Glomerular Filtration Rate 94, BUN/Creatinine Ratio 14, Glucose Level 94, Calcium Level 8.6, Corrected Calcium 9.7, Magnesium Level 1.7, Total Bilirubin 0.9, Aspartate Amino Transf (AST/SGOT) 27, Alanine Aminotransferase (ALT/SGPT) 18, Alkaline Phosphatase 115, Total Protein 7.2, Albumin 2.6L Microbiology 08/09/22 MRSA Screen - Final, Complete MRSA not isolated 08/09/22 Urine Culture - Final, Complete NO GROWTH 08/09/22 Blood Culture - Preliminary, Resulted No growth A/P: Assessment: Pneumonia - management per medical services Uncontrolled HTN - increase anti-hypertensive regimen Paroxysmal atrial fibrillation seen during hospitalization (Jul 2022) - OAC with Eliquis GI - S/p gastric tube placement in January 2018 with removal - failed swallow eval and barium swallow on 07-16-21 - PEG tube placement on 07-17-21 Oncology - Recurrent rlrlr-lm-kzn-mouth sq cell CA that was treated with surgery and chemoradiation subsequently (completed 08/22/19) and is managed by her oncologist Dr Aguila 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 - Has had ILR since 04/06/18 at the recommendation of Dr Ruiz. No atrial flutter/fib or other arrhythmia was documented - ILR has reached FOUNDRY ENGINEER in January 2022 (pt and family do not wish to have it removed or replaced per office visit of May 09, 2022). PAF documented during hosp of Jul 2022 H/o nonspecific chest discomfort - MPI of 05/30/16 showed non ischemia or infarction and LVEF 76% - Echocardiogram of 11-16-20 showed normal global LV systolic function with an ejection fraction of approx 60-65%. Grade 1 diastolic dysfunction. 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 - Chronically occluded L ICA; 40% R ICA disease per u/s of May 2021 COPD - Managed by [facility] Rheumatoid and degenerative arthritis - managed by PCP H/O tobaccoism - quit in 2014 PAD - with history of ballooning and stent in of L SFA and common iliac in May [address] Sevilla and repeat intervention and stenting to the same artery by Dr Engel in Feb 2014. At the time of the angio by Dr Engel in Feb 2014, pt was also found to have patent bilat iliac stents. In Mar 2014 she underwent atherectomy and angioplasty of R sup fem, pop and ant tibial arteries by Dr Engel. - - - Currently, her PAD is being followed by Dr Hewitt (Summer Nair) - Severe bilat PAD seen on BRENDA of 06-06-21 H/o borderline diabetes - managed by PCP Surgeries: - S/p R TKR in December 2016 (Dr Flores). 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 S/P debridement of left shoulder d/t spider bite (Jul 2014) Mild Alk P elevation - for which eval and f/u is with her pcp and her oncologist Plan: Uncontrolled HTN - increase Norvasc dose (not ideal candidate for BB tx d/t documented bradycardia overnight) Management of pneumonia per Medical services Monitor lab closely Replace electrolytes as indicated I discussed her CV issues with her and her daughter and answered questions SKYLAR LOPEZ MD FACP FACC CCDS Aug 12, 2022 11:37
--- NOTE | 2022-08-12 13:07 | Physical Therapy Evaluation ---
PT Evaluation-General Medical Diagnosis Admission Date Aug 09, 2022 at 02:52 Medical Diagnosis: severe sepsis/respiratory failure Onset Date: Aug 09, 2022 Therapy Diagnosis Therapy Diagnosis: impaired mobility/weakness Height/Weight Height (Feet): 5 Height (Inches): 2.00 Weight (Pounds): 180 Weight (Ounces): 0.0 Precautions Precautions/Isolations: Fall Prevention, Standard Precautions Referral Physician: Kiet Reason for Referral: Evaluation/Treatment Medical History Pertinent Medical History: Atrial Fib, Arthritis, CAD, COPD, CVA, Dementia, G ERD, PVD, Rheumatoid Arthritis, Smoking Additional Medical History left transmetatarsal amputation Current History EMS secondary to confusion, fever, cough, SOA Reviewed History: Yes Social History Home: Single Level Current Living Status: Children Entry Into Home: Ramp Prior Prior Level of Function SCALE: Activities may be completed with or without assistive devices. 0-Doehhppvwc-ptadfqe completes the activity by him/herself with no assistance from a helper. 5-Set-up or Clean-up Assistance-helper sets up or cleans up; patient completes activity. [place] assists only prior to or following the activity. 4-Supervision or Touching Assistance-helper provides verbal cues and/or touching/steadying and/or contact guard assistance as patient completes activity. Assistance may be provided throughout the activity or intermittently. 3-Partial/Moderate Assistance-helper does LESS THAN HALF the effort. [place] lifts, holds or supports trunk or limbs, but provides less than half the effort. 2-Substantial/Maximal Assistance-helper does MORE THAN HALF the effort. [place] lifts or holds trunk or limbs and provides more than half the effort. 5-Tmykotvzj-ltlvll does ALL the effort. Patient does none of the effort to complete the activity. Or, the assistance of 2 or more helpers is required for the patient to complete the activity. If activity was not attempted, code reason: 7-Patient Refused. 9-Not Applicable-not attempted and the patient did not perform the activity before the current illness, exacerbation or injury. 10-Not Attempted due to Environmental Limitations-(lack of equipment, weather restraints, etc.). 88-Not Attempted due to Medical Conditions or Safety Concerns. Bed Mobility: 6 Transfers (B,C,W/C): 6 Gait: 6 Stairs: 9 Wheelchair Mobility: 6 Indoor Mobility (Ambulation): Independent Stairs: Not Applicalbe Prior Devices Use: Manual wheelchair, Motorized scooter, Walker PT Evaluation-Current Subjective Patient agrees to PT. Family present Objective Patient Orientation: Person, Time, Situation Attachments: Oxygen (2L NC) ROM/Strength ROM Lower Extremities bilateral LE WFL Strength Lower Extremities 3+/5 grossly bilateral LE all planes Integumentary/Posture Integumentary refer to nursing notes Bladder Incontinence: Castillo Cath Posture WFL Neuromuscular (Tone, Coordination, Reflexes) grossly intact Sensory Vision: Functional Hearing: Functional Transfers Sit to Lying (QC): 4 Lying to Sitting/Side of Bed(Q: 4 Sit to Stand (QC): 4 Gait Mode of Locomotion: Both Anticipated Mode of Locomotion: Both Walk 10 feet (QC): 4 Walk 50 ft with 2 Turns(QC): 4 Walk 150 ft (QC): 4 Distance: 150' Gait Assistive Device: FWW Comments/Gait Description CGA for safety Balance Sitting Static: Normal Sitting Dynamic: Normal Standing Static: Fair Standing Dynamic: Fair Assessment/Needs Patient will benefit from skilled PT to address functional strength and mobility to improve current LOF to safely return to home with family at maximum LOF. Rehab Potential: Fair PT Greenhouse Worker Goals Chcf Goals PT Greenhouse Worker Goals Time Frame: Aug 23, 2022 Roll Left & Right (QC): 6 Sit to Lying (QC): 6 Lying-Sitting on Side/Bed(QC): 6 Sit to Stand (QC): 6 Chair/Bwc-va-Iluzo Xfer(QC): 6 Toilet Transfer (QC): 6 Walk 10 feet (QC): 5 Walk 50ft with 2 Turns (QC): 5 Walk 150 ft (QC): 5 PT Plan Problem List Problem List: Activity Tolerance, Functional Strength, Balance, Gait, Transfer Treatment/Plan Treatment Plan: Continue Plan of Care Treatment Plan: Bed Mobility, Education, Functional Activity Clau, Functional Strength, Gait, Safety, Therapeutic Exercise, Transfers Treatment Duration: Aug 23, 2022 Frequency: 6 times per week Estimated Hrs Per Day: .25 hour per day Patient and/or Family Agrees t: Yes Time Time In: 1240 Time Out: 1254 DATE: Aug 12, 2022 Total Billed Treatment Time: 14 Total [facility] LIA CARBALL[facility] PT Aug 12, 2022 13:07
--- NOTE | 2022-08-12 13:22 | Progress Note - Hospitalist ---
JOSE BRUNNER 08/12/22 1322: Subjective HPI/CC On Admission Date Seen by Provider: Aug 12, 2022 Time Seen by Provider: 09:15 Chief complaint: Sepsis HPI: This is a 72-year-old female who presented to the ER with altered mental status. Patient was found to have pneumonia. Patient has a lot of medical issues and has had a major decline in the last few years. She has difficulty with aspiration since head and neck cancer has been treated. Feeding tube maintained. Daughter at the bedside who cares for her in her home. Dr. Diane consulted. Reviewed records. Subjective/Events-last exam Ms. Coburn is a 72 y/o female with a PMHx of COPD, head/neck cancer with aspiration risk and G-tube placement, CVA, DM, anxiety, depression, and atrial fibrillation who has been admitted to the Hospitalist service for management of sepsis likely secondary to pneumonia. Patient is resting in bed this morning at time of encounter. The patient states she is feeling well today and denies CP, SOA, abdominal pain, N/V/D. Patient is agreeable to PT evaluation today. If patient continues to improve, plan for possible discharge on 08/13 with PO antibiotics. Review of Systems General: Chills HEENT: No Head Aches Pulmonary: No Dyspnea Cardiovascular: No: Chest Pain Gastrointestinal: No: Nausea, Vomiting, Abdominal Pain Objective Exam Vital Signs Vital Signs Date Time Temp Pulse Resp B/P (MAP) Pulse Ox O2 Delivery O2 Flow Rate FiO2 08/12/22 11:05 37.2 84 18 159/81 (107) 95 Nasal Cannula 2.00 08/12/22 10:10 28 Capillary Refill : Less Than 3 Seconds General Appearance: No Apparent Distress, WD/WN Respiratory: No Accessory Muscle Use, No Respiratory Distress, Decreased Breath Sounds (L left sounds diminished), Other (course breath sounds on L) Cardiovascular: Regular Rate, Rhythm, No Murmur Gastrointestinal: Normal Bowel Sounds, Non Tender, Soft Extremity: No Pedal Edema Neurologic/Psychiatric: Alert, Normal Mood/Affect Skin: Normal Color, Warm/Dry Results/Procedures Lab Laboratory Tests 08/12/22 05:01 Patient resulted labs reviewed. Assessment/Plan Assessment and Plan Assess & Plan/Chief Complaint L-sided pneumonia with sepsis Diagnosis/Problems Diagnosis/Problems (1) Elevated troponin Status: Acute Assessment & Plan: Troponin 0.057 -> 0.039 on 08/09 Appreciate plan per Cardiology Secondary prevention of CAD with ASA 81mg and atorvastatin 10mg GT daily (2) Hypertension Status: Chronic Assessment & Plan: Continue to monitor BP Amlodipine 5mg GT daily (3) Atrial fibrillation Status: Chronic Assessment & Plan: Continue Eliquis 5mg BID Atorvastatin 10mg GT daily ASA 81mg GT daily (4) Aspiration pneumonia Status: Acute Assessment & Plan: -NPO -Azithromycin 250mg Q24H -Zosyn 4.5q Q8H IV -Supplemental O2 - baseline is 2.5L -PT/OT -Patient had a CT on 08/07 that demonstrated patchy consolidation within the left upper and lower lobes concerning for aspiration PNA and prominent mediastinal lymph nodes Qualifiers: Qualified Codes: J69.0 - Pneumonitis due to inhalation of food and vomit (5) Sepsis Status: Resolved Assessment & Plan: Sepsis qualifiers: -Leukocytosis of 15.8 and fever of 38.4 upon admission -Fever has since resolved, continue to monitor -Leukocytosis is improving, 14.0 on 08/12 (17.6 on 08/11) Resolution Date/Time: 07/15/22 @ 12:28 (6) Hypokalemia Status: Chronic Assessment & Plan: K of 3.2 on 08/12 K supplementation with KCl 40meq GT AM BMP MARY JANE AYALA DO 08/12/221951: Subjective Subjective/Events-last exam PT OT ST will be consulted today Assessment/Plan Assessment and Plan Assess & Plan/Chief Complaint Therapy consulted TF Abx Supervisory-Addendum Brief Verification & Attestation Participated in pt care: history, MDM, physical Personally performed: exam, history, MDM, supervision of care Care discussed with: Medical Student Procedures: n/a Results interpretation: Verified all documentation Verification and Attestation of Medical Student E/M Service A medical student performed and documented this service in my presence. I reviewed and verified all information documented by the medical student and made modifications to such information, when appropriate. I personally performed the physical exam and medical decision making. Mary Jane Ayala, Aug 12, 2022,19:51 JOSE BRUNNER Aug 12, 2022 13:22 MARY JANE AYALA DO Aug 12, 2022 19:52
--- NOTE | 2022-08-12 13:59 | Speech Therapy Progress Note ---
Therapy Progress Note Speech pathology received the consultation for a clinical bedside swallowing evaluation and attempted contact with the patient's RN at 1348 (not reached). The clinician recently completed a modified barium swallow on 07/16/22 with the patient. The video swallow revealed silent aspiration of thin liquids during the swallow. Additionally, the video swallow revealed the patient at a significant risk for silent aspiration of mildly thick (nectar-thick liquid) and moderately thick (honey-thick liquids) following the swallow due to the marked pharyngeal residue visualized. At the time of the study, speech pathology recommended N.P.O. and consideration of alternative sources of nutrition, hydration and medication (PEG tube) with extensive oropharyngeal swallowing rehabilitation. Per patient's son, the patient's family was undecided towards placement of a PEG tube, therefore, the clinician discussed quality of life and least aspirated consistency of pureed with moderately-thick liquids (honey-thick liquids). Following the discussion, the patient's son decided to pursue PEG tube placement. It is unknown to the clinician if swallowing rehabilitation was pursued following discharge. Due to the visualization of silent aspiration on 07/16/22, the patient's diet consistency cannot be advanced at the bedside and a repeat modified barium swallow must be completed to assess for the presence of aspiration. At the close of the previous discussion with the patient's son, with extensive dysphagia therapy, oropharyngeal swallowing function was not expected to display improvement for approximately six to eight weeks following the onset of the extensive treatment. The clinician will continue attempts to discuss the patient's treatment with the patient's RN and family members if present at bedside on this date. CHERELLE MCCLELLAN Aug 12, 2022 13:59
--- NOTE | 2022-08-12 14:15 | Occupational Therapy Eval ---
OT Evaluation-General/PLF Medical Diagnosis Admission Date Aug 09, 2022 at 02:52 Medical Diagnosis: severe sepsis/respiratory failure Onset Date: Aug 09, 2022 Therapy Diagnosis Therapy Diagnosis: weakness/ debility Height/Weight Height (Feet): 5 Height (Inches): 2.00 Weight (Pounds): 180 Weight (Ounces): 0.0 Precautions Precautions/Isolations: Fall Prevention, Standard Precautions Weight Bear Status Weight Bearing Restriction: Weight Bearing/Tolerated Referral Physician: Kiet Referral Reason: Activity Tolerance, Evaluation/Treatment, Strengthening/ROM Medical History Pertinent Medical History: Atrial Fib, Arthritis, CAD, COPD, CVA, Dementia, GERD, PVD, Rheumatoid Arthritis, Smoking Additional Medical History left transmetatarsal amputation Current History EMS secondary to confusion, fever, cough, SOA Social History Home: Single Level Current Living Status: Children Entry Into Home: Ramp patient uses motor scooter at home in house ADL-Prior Level of Function SCALE: Activities may be completed with or without assistive devices. 5-Ekdytezizn-nlmjwag completes the activity by him/herself with no assistance from a helper. 5-Set-up or Clean-up Assistance-helper sets up or cleans up; patient completes activity. [place] assists only prior to or following the activity. 4-Supervision or Touching Assistance-helper provides verbal cues and/or touching/steadying and/or contact guard assistance as patient completes activity. Assistance may be provided throughout the activity or intermittently. 3-Partial/Moderate Assistance-helper does LESS THAN HALF the effort. [place] lifts, holds or supports trunk or limbs, but provides less than half the effort. 2-Substantial/Maximal Assistance-helper does MORE THAN HALF the effort. [place] lifts or holds trunk or limbs and provides more than half the effort. 1-Xcboowwlu-llotne does ALL the effort. Patient does none of the effort to complete the activity. Or, the assistance of 2 or more helpers is required for the patient to complete the activity. If activity was not attempted, code reason: 7-Patient Refused. 9-Not Applicable-not attempted and the patient did not perform the activity before the current illness, exacerbation or injury. 10-Not Attempted due to Environmental Limitations-(lack of equipment, weather restraints, etc.). 88-Not Attempted due to Medical Conditions or Safety Concerns. Self Care: Needed Some Help Functional Cognition: Needed Some Help patient removes both socks and applies sitting EOB, daughter responds and says, " Why won't you do that at home?" Drive Self: No OT Current Status Subjective Sitting EOB completed PT evaluation, daughter is present throughout Pain Numeric Pain Scale: 0-No Pain Mental Status/Objective Patient Orientation: Person, Place some word finding and formation difficulty noted, daughter asks if speech will be involved Attachments: Castillo Catheter Current Upper Extremity ROM BUE WFLS for ADLs w/ Assist Upper Extremity Strength BUE -4/5 grossly ADL-Treatment Eating (QC): 6 Oral Hygiene (QC): 4 Shower/Bathe Self (QC): 7 (had shower w/ nursing staff prior to therpay evaluations) Upper Body Dressing (QC): 4 Lower Body Dressing (QC): 4 On/Off Footwear (QC): 5 Toileting Hygiene (QC): 4 Education OT Patient Education: Correct positioning, Energy conservation, Exercise program, Modified ADL techniques, Progress toward Goal/Update tx plan, Purpose of tx/functional activities, Reviewed precautions, Rehab process, Safety issues, Transfer techniques, Use of adapted equipment Teaching Recipient: Patient, Family Teaching Methods: Demonstration, Discussion Response to Teaching: Verbalize Understanding, Return Demonstration, Reinforcement Needed OT Assisted Goals Automation Manager Goals Time Frame: Aug 23, 2022 Eating (QC): 6 Oral Hygiene (QC): 6 Toileting Hygiene (QC): 5 Shower/Bathe Self (QC): 4 Upper Body Dressing (QC): 6 Lower Body Dressing (QC): 6 On/Off Footwear (QC): 6 1=Demonstrate adherence to instructed precautions during ADL tasks. 2=Patient will verbalize/demonstrate understanding of assistive devices/modifications for ADL. 3=Patient will improve strength/tolerance for activity to enable patient to perform ADL's. OT Education/Plan Problem List/Assessment Assessment: Decreased Activ Tolerance, Decreased UE Strength, Impaired Coordination, Impaired Funct Balance, Impaired Self-Care Skills, Restricted Funct UE ROM Discharge Recommendations Plan/Recommendations: Continue POC Therapy Discharge Recommendati: Post Acute OT Treatment Plan/Plan of Care Treatment,Training & Education: Yes Patient would benefit from OT for education, treatment and training to promote independence in ADL's, mobility, safety and/or upper extremity function for ADL's. Plan of Care: ADL Retraining, Functional Mobility, Group Exercise/Act as Ind, UE Funct Exercise/Act Treatment Duration: Aug 23, 2022 Frequency: 3 times per week (3-5 times per week) Estimated Hrs Per Day: .25 hour per day Agreement: Yes Rehab Potential: Fair Patient returned to bed supine w/ call light and tray table in reach, daughter present , all needs met Time Start Time: 12:50 Stop Time: 13:06 DATE: Aug 12, 2022 Total Time Billed (hr/min): 16 Billed Treatment Time 1 visit EVL 16 minutes DIANE MOJICA OT Aug 12, 2022 14:15
--- NOTE | 2022-08-12 15:43 | Speech Therapy Progress Note ---
Therapy Progress Note Speech pathology visited with the RN regarding the patient's treatment plan. The speech pathologist attempted to schedule a modified for tomorrow's treatment date. At this time, radiology availability is not present. The assistant clinical director agreed to contact radiology in attempts to overbook the appointment for tomorrow's date. Unfortunately, radiology does not have the ability to overbook the patient's appointment for tomorrow. At this time, speech pathology will touch base with the patient's RN tomorrow morning for an updated plan of care. If the patient discharges on tomorrow's date, please schedule an outpatient modified barium swallow as one will be necessary to safely upgrade the patient's diet consistency due to the presence of silent aspiration with thin liquids, nectar-thick liquids, and honey-thick liquids on the modified barium swallow c ompleted on 07/16/2022. Please refer to the previous speech pathology note from this date for additional details and information. The clinician contacted the patient's RN and provided information regarding the inability to schedule the swallow for tomorrow's date. CHERELLE MCCLELLAN Aug 12, 2022 15:43
[2022-08-12] MEDS: AtorvaSTATin TABLET 10 MG TABLET GT SCH (21:13)
[2022-08-12] MEDS: MONTELUKAST 10 MG (SINGULAIR) TAB PO SCH (21:14)
[2022-08-13] MEDS: PIPERACILLIN SODIUM/TAZOBACTAM 4.5 GM in NS (IVPB) 100 ML IV SCH ×2 (00:55→09:25)
[2022-08-13 03:05] VITALS: BP 140/87
[2022-08-13 05:25] LABS: BASOPHILS # (AUTO) 0.1 10^3/uL (0.0-0.1); BASOPHILS % (AUTO) 1 % (0-10); EOSINOPHILS # (AUTO) 0.3 10^3/uL (0.0-0.3); EOSINOPHILS % (AUTO) 2 % (0-10); HEMATOCRIT 31 % (35-52); HEMOGLOBIN 10.2 g/dL (11.5-16.0); LYMPHOCYTES # (AUTO) 2.7 10^3/uL (1.0-4.0); LYMPHOCYTES % (AUTO) 24 % (12-44); MEAN CORPUSCULAR HEMOGLOBIN 30 pg (25-34); MEAN CORPUSCULAR HGB CONC 33 g/dL (32-36); MEAN CORPUSCULAR VOLUME 90 fL (80-99); MONOCYTES % (AUTO) 9 % (0-12); NEUTROPHILS # (AUTO) 7.1 10^3/uL (1.8-7.8); NEUTROPHILS % (AUTO) 62 % (42-75); PLATELET COUNT 625 10^3/uL (130-400); WHITE BLOOD COUNT 11.3 10^3/uL (4.3-11.0)
[2022-08-13 05:43] LABS: ALBUMIN 2.7 GM/DL (3.2-4.5); POTASSIUM 3.3 MMOL/L (3.6-5.0)
[2022-08-13 05:44] LABS: CALCIUM 8.7 MG/DL (8.5-10.1)
[2022-08-13 05:45] LABS: TOTAL PROTEIN 7.6 GM/DL (6.4-8.2)
[2022-08-13 05:47] LABS: BILIRUBIN,TOTAL 0.9 MG/DL (0.1-1.0)
[2022-08-13 05:49] LABS: CREATININE SERUM 0.65 MG/DL (0.60-1.30)
[2022-08-13 05:52] LABS: MAGNESIUM 1.8 MG/DL (1.6-2.4)
[2022-08-13] MEDS: CATHETER FLUSH 10 ML SYR IVP SCH ×3 (06:44→14:25)
[2022-08-13] MEDS: UMECLIDINIUM BROMIDE (INCRUSE ELLIPTA) 7'S IH SCH (07:03)
[2022-08-13] MEDS: RT-ALBUTEROL SULF 2.5 MG/3 ML PRE-MIX VIAL INH SCH (07:03)
[2022-08-13] MEDS: RT--FLUTICASONE/SALMETEROL 232-14 (AIRDUO RespiCLICK) IH SCH (07:04)
[2022-08-13 07:43] VITALS: BP 151/67
[2022-08-13] MEDS ORDERED: NS IV 1000 ML 1,000 ML IV SCH (09:00)
[2022-08-13] MEDS ORDERED: AZITHROMYCIN 250 MG TAB (ZITHROMAX) PO SCH (09:00)
--- NOTE | 2022-08-13 09:02 | Progress Note - Cardiology ---
Cardiology SOAP Progress Note Subjective: Sitting up in bed States she feels better Reports productive cough No c/o CP or palpitations Objective: I&O/Vital Signs 08/13/22 08/13/22 08/13/22 08/13/22 03:05 07:04 07:43 08:00 Temp 36.8 35.6 Pulse 82 75 Resp 18 18 B/P (MAP) 140/87 (104) 151/67 (95) Pulse Ox 95 92 94 O2 Delivery High Flow N/C High Flow N/C Nasal Cannula Nasal Cannula O2 Flow Rate 2.00 2.00 2.00 2.00 08/13/22 11:15 Temp 36.0 Pulse 75 Resp 18 B/P (MAP) 147/67 (93) Pulse Ox 94 O2 Delivery Nasal Cannula O2 Flow Rate 2.00 08/13/22 00:00 Intake Total 1680 ml Output Total 1950 ml Balance -270 ml Weight (Pounds): 180 Weight (Ounces): 0.0 Weight (Calculated Kilograms): 81.222832 Constitutional: AAO x 3, well-developed, well-nourished Respiratory: No accessory muscle use; chest expansion is symmetric, other (good air entry, diminished at bases, basal coarse crackles) Cardiovascular: regular rate-rhythm, S1 and S2, systolic murmur (soft AUREA at card base) Gastrointestional: No tender; soft; No guarding, No rebound; audible bowel sounds, other (PEG tube in place) Extremities: No clubbing, No cyanosis, No significant edema Neurologic/Psychiatric: oriented x 3, other (R-sided weakness with delayed speech - chronic) Skin: warm/dry; No cyanosis, No rash on exposed areas, No ulcerations on exposed areas Results/Procedures: Labs Laboratory Tests 08/13/22 05:15: White Blood Count 11.3H, Red Blood Count 3.44L, Hemoglobin 10.2L, Hematocrit 31L , Mean Corpuscular Volume 90, Mean Corpuscular Hemoglobin 30, Mean Corpuscular Hemoglobin Concent 33, Red Cell Distribution Width 15.2H, Platelet Count 625H, Mean Platelet Volume 9.0, Immature Granulocyte % (Auto) 2, Neutrophils (%) (Auto) 62, Lymphocytes (%) (Auto) 24, Monocytes (%) (Auto) 9, Eosinophils (%) (Auto) 2, Basophils (%) (Auto) 1, Neutrophils # (Auto) 7.1, Lymphocytes # (Auto) 2.7, Monocytes # (Auto) 1.0, Eosinophils # (Auto) 0.3, Basophils # (Auto) 0.1, Immature Granulocyte # (Auto) 0.2H, Sodium Level 137, Potassium Level 3.3L, Ch loride Level 101, Carbon Dioxide Level 27, Anion Gap 9, Blood Urea Nitrogen 9, Creatinine 0.65, Estimat Glomerular Filtration Rate 93, BUN/Creatinine Ratio 14, Glucose Level 90, Calcium Level 8.7, Corrected Calcium 9.7, Magnesium Level 1.8, Total Bilirubin 0.9, Aspartate Amino Transf (AST/SGOT) 30, Alanine Aminotransferase (ALT/SGPT) 21, Alkaline Phosphatase 112, Total Protein 7.6, Albumin 2.7L Microbiology 08/09/22 MRSA Screen - Final, Complete MRSA not isolated 08/09/22 Urine Culture - Final, Complete NO GROWTH 08/09/22 Blood Culture - Preliminary, Resulted No growth A/P: Assessment: Pneumonia - management per medical services HTN - improved Paroxysmal atrial fibrillation seen during hospitalization (Jul 2022) - OAC with Eliquis GI - S/p gastric tube placement in January 2018 with removal - failed swallow eval and barium swallow on 07-16-21 - PEG tube placement on 07-17-21 Oncology - Recurrent kybmf-dg-ufr-mouth sq cell CA that was treated with surgery and chemoradiation subsequently (completed 08/22/19) and is managed by her oncologist Dr Aguila 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 - Has had ILR since 04/06/18 at the recommendation of Dr Ruiz. No atrial flutter/fib or other arrhythmia was documented - ILR has reached [facility] in January 2022 (pt and family do not wish to have it removed or replaced per office visit of May 09, 2022). PAF documented during hosp of Jul 2022 H/o nonspecific chest discomfort - MPI of 05/30/16 showed non ischemia or infarction and LVEF 76% - Echocardiogram of 11-16-20 showed normal global LV systolic function with an ejection fraction of approx 60-65%. Grade 1 diastolic dysfunction. 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 - Chronically occluded L ICA; 40% R ICA disease per u/s of May 2021 COPD - Managed by [facility] Rheumatoid and degenerative arthritis - managed by PCP H/O tobaccoism - quit in 2014 PAD - with history of ballooning and stent in of L SFA and common iliac in May [address] Sevilla and repeat intervention and stenting to the same artery by Dr Engel in Feb 2014. At the time of the angio by Dr Engel in Feb 2014, pt was also found to have patent bilat iliac stents. In Mar 2014 she underwent atherectomy and angioplasty of R sup fem, pop and ant tibial arteries by Dr Engel. - - - Currently, her PAD is being followed by Dr Hewitt ([facility]) - Severe bilat PAD seen on BRENDA of 11-25-21 H/o borderline diabetes - managed by PCP Surgeries: - S/p R TKR in December 2016 (Dr Flores). 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 S/P debridement of left shoulder d/t spider bite (Jul 2014) Mild Alk P elevation - for which eval and f/u is with her pcp and her oncologist Plan: BP has improved with increased dose of Norvasc - increase Norvasc dose (not ideal candidate for BB tx d/t documented bradycardia overnight) Management of pneumonia per Medical services Monitor lab closely Replace electrolytes as indicated MARJORIE EDUARDO Aug 13, 2022 09:02
[2022-08-13] MEDS ORDERED: KCL 20 MEQ TAB (K-DUR) PO ONE ×3 (09:15→16:00)
--- NOTE | 2022-08-13 09:15 | Speech Therapy Progress Note ---
Therapy Progress Note The clinician followed up with the RN at 0930. The RN stated she was not aware of ST's updated plan of care from the prior date. The clinician provided an update and summary of the patient's past medical history of dysphagia, specifically silent aspiration of thin liquid, nectar-thick liquids, and honey- thick liquids and the rationale for why the clinician could not recommend a diet consistency at bedside for the patient's safety. Additionally, radiology is unable to schedule a video swallow for this date. The clinician is interested if the patient will discharge on this date or remain in inpatient pending completion of the video swallow. If the patient discharges on this date, the patient is advised to schedule an outpatient video swallow. If the patient remains, speech pathology will need notified so attempts to schedule a video swallow on 08/14/[address] to follow up with the RN as able. CHERELLE MCCLELLAN Aug 13, 2022 09:15
[2022-08-13] MEDS: GABAPENTIN 300 MG (NEURONTIN) CAP PEG SCH ×2 (09:24→14:25)
[2022-08-13] MEDS: APIXABAN 5 MG (ELIQUIS) TABLET GT SCH (09:24)
[2022-08-13] MEDS: FAMOTIDINE 20 MG (PEPCID) TABLET PEG SCH (09:24)
[2022-08-13] MEDS: amLODIPine 5 MG (NORVASC) TAB GT SCH (09:24)
[2022-08-13] MEDS: DULoxetine 30 MG (CYMBALTA) CAP PO SCH (09:24)
[2022-08-13] MEDS: LORATADINE 5 MG/5 ML SOLN (CLARITIN) UDC PO SCH (09:24)
[2022-08-13] MEDS: ROFLUMILAST 500 MCG TAB (DALIRESP) PO SCH (09:24)
[2022-08-13] MEDS: POTASSIUM CL 10MEQ/50ML IVPB 50 ML IV SCH ×4 (09:25→11:33)
[2022-08-13] MEDS: ASPIRIN 81 MG CHEW (CHILDREN'S ASA) GT SCH (09:27)
--- NOTE | 2022-08-13 10:38 | Speech Therapy Daily Note ---
Speech Daily Progress Note Subjective Time Seen by Provider: 08:45 Speech-Plan Treatment Plan Rehab Potential: Fair Time Speech Therapy Time In: 08:45 Speech Therapy Time Out: 08:58 CHERELLE MCCLELLAN Aug 13, 2022 10:38
--- NOTE | 2022-08-13 11:01 | Physical Therapy Daily Note ---
PT Daily Note-Current Subjective Patient in bed pre tx, agrees to PT with a little encouragement, no complaints of pain. Pain Section J - Health Conditions 1. Rarely or not at all 2. Occasionally 3. Frequently 4. Almost constantly 8. Unable to answer Pain Effect on Sleep: 1 Pain Interference with Therapy: 1 Pain Interference w/Day-to-Day: 1 Appearance Patient in bed post tx with nurse call, phone, tray, all needs met. Mental Status Patient Orientation: Person, Place, Situation Attachments: Oxygen, Castillo Catheter, IV Transfers SCALE: Activities may be completed with or without assistive devices. 3-Ywcjzeifgz-nigcmyq completes the activity by him/herself with no assistance from a helper. 5-Set-up or Clean-up Assistance-helper sets up or cleans up; patient completes activity. [place] assists only prior to or following the activity. 4-Supervision or Touching Assistance-helper provides verbal cues and/or t ouching/steadying and/or contact guard assistance as patient completes activity. Assistance may be provided throughout the activity or intermittently. 3-Partial/Moderate Assistance-helper does LESS THAN HALF the effort. [place] lifts, holds or supports trunk or limbs, but provides less than half the effort. 2-Substantial/Maximal Assistance-helper does MORE THAN HALF the effort. [place] lifts or holds trunk or limbs and provides more than half the effort. 6-Puiofwdck-smvawt does ALL the effort. Patient does none of the effort to complete the activity. Or, the assistance of 2 or more helpers is required for the patient to complete the activity. If activity was not attempted, code reason: 7-Patient Refused. 9-Not Applicable-not attempted and the patient did not perform the activity before the current illness, exacerbation or injury. 10-Not Attempted due to Environmental Limitations-(lack of equipment, weather restraints, etc.). 88-Not Attempted due to Medical Conditions or Safety Concerns. Roll Left & Right (QC): 4 Sit to Lying (QC): 4 Lying to Sitting/Side of Bed(Q: 4 Sit to Stand (QC): 4 Chair/Ukx-yl-Bjete Xfer(QC): 4 Gait Training Distance: 200' Walk 10 feet (QC): 4 Walk 50 ft with 2 Turns(QC): 4 Walk 150 ft (QC): 4 Gait Persons Needed: 1 Gait Assistive Device: FWW Patient did need one short seated rest break, O2 was 96% during the break. Slow but steady ambulation Exercises Supine Ex: Ankle pumps, Heel Slides Supine Reps: 20 Treatments bed mobility and transfers, ambulation, LE ROM Assessment Current Status: Fair Progress slowly improving endurance PT Inspector Assembly Goals Inspector Assembly Goals PT Assisted Goals Time Frame: Aug 23, 2022 Roll Left & Right (QC): 6 Sit to Lying (QC): 6 Lying-Sitting on Side/Bed(QC): 6 Sit to Stand (QC): 6 Chair/Odr-hs-Oknwl Xfer(QC): 6 Toilet Transfer (QC): 6 Walk 10 feet (QC): 5 Walk 50ft with 2 Turns (QC): 5 Walk 150 ft (QC): 5 PT Plan Problem List Problem List: Activity Tolerance, Functional Strength, Safety, Balance, Gait, Transfer, Bed Mobility, ROM Treatment/Plan Treatment Plan: Continue Plan of Care Treatment Plan: Bed Mobility, Education, Functional Activity [place], Functional Strength, Gait, Safety, Therapeutic Exercise, Transfers Treatment Duration: Aug 23, 2022 Frequency: 6 times per week Estimated Hrs Per Day: .25 hour per day Patient and/or Family Agrees t: Yes Safety Risks/Education Patient Education: Gait Training, Transfer Techniques, Correct Positioning, Safety Issues Teaching Recipient: Patient Teaching Methods: Demonstration, Discussion Response to Teaching: Reinforcement Needed Time Time In: 1034 Time Out: 1048 DATE: Aug 13, 2022 Total Billed Treatment Time: 14 Total Billed Treatment 1 visit FA 14' YANDEL DIOP PT Aug 13, 2022 11:01
[2022-08-13 11:15] VITALS: BP 147/67
--- NOTE | 2022-08-13 11:35 | Occupational Ther Daily Note ---
OT Current Status-Daily Note Subjective Laying supine in bed, daughter present and reports possible going home today Mental Status/Objective Patient Orientation: Person, Place, Situation Attachments: Johnson Catheter, IV ADL-Treatment Declines changing from gown d/t johnson in place. Therapy Code Descriptions/Definitions Functional [place] Measure: 0=Not Assessed/NA 4=Minimal Assistance 1=Total Assistance 5=Supervision or Setup 2=Maximal Assistance 6=Modified [place] 3=Moderate Assistance 7=Complete IndependenceSCALE: Activities may be completed with or without assistive devices. 5-Mwhgqdmnoy-pxlwlzh completes the activity by him/herself with no assistance from a helper. 5-Set-up or Clean-up Assistance-helper sets up or cleans up; patient completes activity. [place] assists only prior to or following the activity. 4-Supervision or Touching Assistance-helper provides verbal cues and/or touching/steadying and/or contact guard assistance as patient completes activity. Assistance may be provided throughout the activity or intermittently. 3-Partial/Moderate Assistance-helper does LESS THAN HALF the effort. [place] lifts, holds or supports trunk or limbs, but provides less than half the effort. 2-Substantial/Maximal Assistance-helper does MORE THAN HALF the effort. [place] lifts or holds trunk or limbs and provides more than half the effort. 0-Nqxzjfqrv-vtvxyl does ALL the effort. Patient does none of the effort to comp lete the activity. Or, the assistance of 2 or more helpers is required for the patient to complete the activity. If activity was not attempted, code reason: 7-Patient Refused. 9-Not Applicable-not attempted and the patient did not perform the activity before the current illness, exacerbation or injury. 10-Not Attempted due to Environmental Limitations-(lack of equipment, weather restraints, etc.). 88-Not Attempted due to Medical Conditions or Safety Concerns. Eating (QC): 88 (NPO) Oral Hygiene (QC): 88 (NPO) Shower/Bathe Self (QC): 7 (declines) Upper Body Dressing (QC): 6 Lower Body Dressing (QC): 4 On/Off Footwear: 5 Toileting Hygiene (QC): 4 Toilet Transfer (QC): 4 Other Treatment Performs BUE ther ex sitting EOB, RUE assisted by patient use of LUE Education OT Patient Education: Correct positioning, Energy conservation, Exercise program, Modified ADL techniques, Progress toward Goal/Update tx plan, Purpose of tx/functional activities, Reviewed precautions, Rehab process, Safety issues, Transfer techniques, Use of adapted equipment Teaching Recipient: Patient Teaching Methods: Demonstration, Discussion Response to Teaching: Verbalize Understanding, Return Demonstration, Reinforcement Needed OT Manager Systems Goals Detention Goals Time Frame: Aug 23, 2022 Eating (QC): 6 Oral Hygiene (QC): 6 Toileting Hygiene (QC): 5 Shower/Bathe Self (QC): 4 Upper Body Dressing (QC): 6 Lower Body Dressing (QC): 6 On/Off Footwear (QC): 6 1=Demonstrate adherence to instructed precautions during ADL tasks. 2=Patient will verbalize/demonstrate understanding of assistive devices/modifications for ADL. 3=Patient will improve strength/tolerance for activity to enable patient to perform ADL's. OT Education/Plan Problem List/Assessment Assessment: Decreased Activ Tolerance, Decreased Safety Aware, Decreased UE Strength, Impaired Bed Mobility, Impaired Cognition, Impaired Coordination, Impaired Funct Balance, Impaired Self-Care Skills, Restricted Funct UE ROM Discharge Recommendations Plan/Recommendations: Continue POC Therapy Discharge Recommendati: Home & Family Treatment Plan/Plan of Care Treatment,Training & Education: Yes Patient would benefit from OT for education, treatment and training to promote independence in ADL's, mobility, safety and/or upper extremity function for ADL's. Plan of Care: ADL Retraining, Functional Mobility, Group Exercise/Act as Ind, UE Funct Exercise/Act Treatment Duration: Aug 23, 2022 Frequency: 3 times per week (3-5 times per week) Estimated Hrs Per Day: .25 hour per day Agreement: Yes Rehab Potential: Fair Remain sitting EOB w/ daughter present, all needs met Time Start Time: 09:55 Stop Time: 10:10 DATE: Aug 13, 2022 Total Time Billed (hr/min): 15 Billed Treatment Time 1 visit EX 15 min DIANE MOJICA OT Aug 13, 2022 11:35
[2022-08-13] MEDS ORDERED: FAMO20TA5 PEG (12:23)
[2022-08-13] MEDS ORDERED: ATOR10TA66 GT (12:23)
[2022-08-13] MEDS ORDERED: AMLO-251 GT (12:23)
[2022-08-13] MEDS ORDERED: AMOX1TAB12 GT (12:23)
--- NOTE | 2022-08-13 12:26 | Progress Note - Cardiology ---
Cardiology SOAP Progress Note Subjective: No cp or palp or syncope Intermittent dizziness No n/v/d Speech impairment and R-sided weakness as before Gen weakness Mod exertional shortness of breath No swelling Objective: I&O/Vital Signs 08/13/22 08/13/22 08/13/22 08/13/22 03:05 07:04 07:43 08:00 Temp 36.8 35.6 Pulse 82 75 Resp 18 18 B/P (MAP) 140/87 (104) 151/67 (95) Pulse Ox 95 92 94 O2 Delivery High Flow N/C High Flow N/C Nasal Cannula Nasal Cannula O2 Flow Rate 2.00 2.00 2.00 2.00 08/13/22 11:15 Temp 36.0 Pulse 75 Resp 18 B/P (MAP) 147/67 (93) Pulse Ox 94 O2 Delivery Nasal Cannula O2 Flow Rate 2.00 08/13/22 00:00 Intake Total 1680 ml Output Total 1950 ml Balance -270 ml Weight (Pounds): 180 Weight (Ounces): 0.0 Weight (Calculated Kilograms): 81.062754 Constitutional: AAO x 3, well-developed, well-nourished Respiratory: No accessory muscle use; chest expansion is symmetric, other (good air entry, diminished at bases, basal coarse crackles) Cardiovascular: regular rate-rhythm, S1 and S2, systolic murmur (soft AUREA at card base) Gastrointestional: No tender; soft; No guarding, No rebound; audible bowel sounds, other (PEG tube in place) Extremities: No clubbing, No cyanosis, No significant edema Neurologic/Psychiatric: oriented x 3, other (R-sided weakness with delayed speech - chronic) Skin: warm/dry; No cyanosis, No rash on exposed areas, No ulcerations on exposed areas Results/Procedures: Labs Laboratory Tests 08/13/22 05:15: White Blood Count 11.3H, Red Blood Count 3.44L, Hemoglobin 10.2L, Hematocrit 31L , Mean Corpuscular Volume 90, Mean Corpuscular Hemoglobin 30, Mean Corpuscular Hemoglobin Concent 33, Red Cell Distribution Width 15.2H, Platelet Count 625H, Mean Platelet Volume 9.0, Immature Granulocyte % (Auto) 2, Neutrophils (%) (Auto) 62, Lymphocytes (%) (Auto) 24, Monocytes (%) (Auto) 9, Eosinophils (%) (Auto) 2, Basophils (%) (Auto) 1, Neutrophils # (Auto) 7.1, Lymphocytes # (Auto) 2.7, Monocytes # (Auto) 1.0, Eosinophils # (Auto) 0.3, Basophils # (Auto) 0.1, Immature Granulocyte # (Auto) 0.2H, Sodium Level 137, Potassium Level 3.3L, Chloride Level 101, Carbon Dioxide Level 27, Anion Gap 9, Blood Urea Nitrogen 9, Creatinine 0.65, Estimat Glomerular Filtration Rate 93, BUN/Creatinine Ratio 14, Glucose Level 90, Calcium Level 8.7, Corrected Calcium 9.7, Magnesium Level 1.8, Total Bilirubin 0.9, Aspartate Amino Transf (AST/SGOT) 30, Alanine Aminotransferase (ALT/SGPT) 21, Alkaline Phosphatase 112, Total Protein 7.6, Albumin 2.7L Microbiology 08/09/22 MRSA Screen - Final, Complete MRSA not isolated 08/09/22 Urine Culture - Final, Complete NO GROWTH 08/09/22 Blood Culture - Preliminary, Resulted No growth Laboratory Tests 08/12/22 05:01 08/13/22 05:15 A/P: Assessment: Pneumonia - management per medical services HTN - improved Paroxysmal atrial fibrillation seen during hospitalization (Jul 2022) - OAC with Eliquis GI - S/p gastric tube placement in January 2018 with removal - failed swallow eval and barium swallow on 07-16-21 - PEG tube placement on 07-17-21 Oncology - 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 - Has had ILR since 04/06/18 at the recommendation of Dr Ruiz. No atrial flutter/fib or other arrhythmia was documented - ILR has reached TECHNICAL PHOTOGRAPHER in January 2022 (pt and family do not wish to have it removed or replaced per office visit of May 09, 2022). PAF documented during hosp of Jul 2022 H/o nonspecific chest discomfort - MPI of 05/30/16 showed non ischemia or infarction and LVEF 76% - Echocardiogram of 11-16-20 showed normal global LV systolic function with an ejection fraction of approx 60-65%. Grade 1 diastolic dysfunction. 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 - Chronically occluded L ICA; 40% R ICA disease per u/s of May 2021 COPD - Managed by [facility] Rheumatoid and degenerative arthritis - managed by PCP H/O tobaccoism - quit in 2014 PAD - with history of ballooning and stent in of L SFA and common iliac in May [address] Sevilla and repeat intervention and stenting to the same artery by Dr Engel in Feb 2014. At the time of the angio by Dr Engel in Feb 2014, pt was also found to have patent bilat iliac stents. In Mar 2014 she underwent atherectomy and angioplasty of R sup fem, pop and ant tibial arteries by Dr Engel. - - - Currently, her PAD is being followed by Dr Hewitt ([facility]) - Severe bilat PAD seen on BRENDA of 11-25-21 H/o borderline diabetes - managed by PCP Surgeries: - S/p R TKR in December 2016 (Dr Flores). 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 S/P debridement of left shoulder d/t spider bite (Jul 2014) Mild Alk P elevation - for which eval and f/u is with her pcp and her oncologist Plan: BP has improved with increased dose of Norvasc - increase Norvasc dose (not ideal candidate for BB tx d/t documented bradycardia overnight) Management of pneumonia per Medical services Monitor lab closely Replace electrolytes as indicated SKYLAR LOPEZ MD FACP FACC CCDS Aug 13, 2022 12:26
--- NOTE | 2022-08-13 12:32 | D/C HH Face to Face Order ---
D/C Face to Face Orders Instructions for Patient Patient Instructions/FollowUp: Follow up with primary provider within a week of discharge. Outpatient modified barium swallow follow up is needed. Physician to follow Patient: MELISA Discharge Diet for Home: Tube Feeding Patient Problems: Pneumonia History of stroke History of head and neck cancer with radiation Dysphagia/aspiration requiring NPO status and tube feedings Patient Data-Allergies,Ht & Wt Patient Allergies: Coded Allergies: ceftriaxone (Verified Allergy, Severe, DIFFICULTY BREATING, 07/05/19) levofloxacin (Verified Allergy, Severe, C-DIFF, 07/05/19) Height (Feet): 5 Height (Inches): 2.00 Weight (Pounds): 180 Weight (Ounces): 0.0 Home Health Need/Face to Face Date of Face to Face: Aug 13, 2022 Clinical Findings: Generalized weakness and fatigue I have seen Pt [id number]: Yes Discharged To: Home Diagnosis/Conditions: See problems Patient is Homebound due to: CognItive deficits, Muscle weakness Homebound Status Due to the above stated illness, injury or surgical procedure (medical condition or diagnosis) and associated clinical findings, the patient is homebound because of his/her inability to leave home except with aid of a supportive device and/or person AND leaving the home requires a considerable and taxing effort or is medically contraindicated. Pt req the following assistanc: Aid of another person Home Health Nursing Orders Home Health Services Order: Nursing Services, Special Services Agent-Evaluate & Treat, Physical Therapy-Evaluate & Treat, Speech Language-Evaluate & Treat Certify Stmt I certify that this patient is under my care and that I, a nurse practitioner or a physician; a housing assistant property manager working with me, had a face to face encounter that - meets the physician face to face encounter requirements with this patient as dated. SATNAM MIKE MD Aug 13, 2022 12:30
--- NOTE | 2022-08-13 12:59 | Speech Therapy Progress Note ---
Therapy Progress Note Following a medical chart review, the patient has discharge instructions in place (including an outpatient modified barium swallow study). At this time, the clinician will sign off of skilled services as an appropriate plan is present. Please contact with additional needs or services. CHERELLE MCCLELLAN Aug 13, 2022 12:59
[2022-08-13 15:20] VITALS: BP 147/67
--- NOTE | 2022-08-13 18:45 | Discharge Summary ---
TIMOTHY BRUNNERAELA 08/13/22 1845: Diagnosis/Chief Complaint Date of Admission Aug 09, 2022 at 02:52 Date of Discharge Aug 13, 2022 at 15:20 Discharge Date: Aug 13, 2022 Discharge Time: 11:00 Admission Diagnosis Admission Diagnosis Sepsis likely secondary to L-sided aspiration pneumonia Discharge Diagnosis Sepsis likely secondary to L-sided aspiration pneumonia Reason Hospital Visit Ms. Coburn is a 72 year old female with a PMHx of head and neck cancer with aspiration risk who presented to [facility] with sepsis with fever and leukocytosis likely secondary to L-sided aspiration pneumonia. Discharge Summary Discharge Physical Examination Allergies: Coded Allergies: ceftriaxone (Verified Allergy, Severe, DIFFICULTY BREATING, 07/05/19) levofloxacin (Verified Allergy, Severe, C-DIFF, 07/05/19) Vitals & I&Os Vital Signs Date Time Temp Pulse Resp B/P (MAP) Pulse Ox O2 Delivery O2 Flow Rate FiO2 08/13/22 15:20 36.0 75 18 147/67 94 Nasal Cannula 2.00 08/12/22 10:10 28 General Appearance: Alert, Cooperative, No Acute Distress HEENT: Atraumatic Respiratory: Other (coarse L-sided breath sounds, clear breath sound on R) Cardiovascular: Regular Rate Abdominal: Normal Bowel Sounds, Soft, Other (G-tube in place) Extremities: No Edema, Other Skin: No Rashes Neuro: Normal Speech Psych/Mental Status: Mood NL Hospital Course Was the Problem List Reviewed?: Yes Ms. Coburn is a 72 y/o female with a PMHx of COPD, head/neck cancer with aspiration risk and G-tube placement, CVA, DM, anxiety, depression, and atrial fibrillation who was admitted to the Hospitalist service for management of sepsis likely secondary to pneumonia. Due to the patient's history of cancer and radiation with surgical management to the head and neck, the patient has a high aspiration risk and thus aspiration pneumonia was suspected. Antibiotic therapy was initiated with azithromycin and Zosyn. During the patient's stay, the patient was hypertensive, and amlodipine therapy was initiated. Potassium was replaced when the patient exhibited hypokalemia. With management and monitoring, the patient's fever resolved and leukocytosis declined steadily. Speech therapy, OT, and PT evaluated the patient. Speech recommends a barium swallow study in the out-patient setting to further address aspiration risk. On 08/13 the patient is stable for discharge. Discharge instructions have been provided per the Hospitalist service. This is a brief summary of the patient's hospital course, further detail can be located in the patient's chart. Discharge Instructions to patient/family Please see electronic discharge instructions given to patient. Discharge Medications Reviewed and agree with Discharge Medication list on patient's Discharge Instruction sheet HPI General Chief Complaint: Respiratory Problems Stated Complaint: SEVERE SEPSIS Nursing Triage Note: Pt presents with c/o shortness of breath and fever. Pt has hx of sepsis and has been at home on abx. Outpatient CT done yesterday shows pneumonia. Pt appears confused, EMS reports pt was 88% spo2 on room air at home. Source of Information: Patient, Caregiver (daughter) Exam Limitations: No Limitations History of Present Illness Date Seen by Provider: Aug 13, 2022 Time Seen by Provider: 11:00 Diagnosis/Problems Diagnosis/Problems (1) Elevated troponin Status: Acute Assessment & Plan: Troponin 0.057 -> 0.039 on 08/09 Appreciate plan per Cardiology Secondary prevention of CAD with ASA 81mg and atorvastatin 10mg GT daily (2) Hypertension Status: Chronic Assessment & Plan: Continue to monitor BP Amlodipine 5mg GT daily (3) Atrial fibrillation Status: Chronic Assessment & Plan: Continue Eliquis 5mg BID Atorvastatin 10mg GT daily ASA 81mg GT daily (4) Aspiration pneumonia Status: Acute Assessment & Plan: -NPO -Azithromycin 250mg Q24H -Zosyn 4.5q Q8H IV -Supplemental O2 - baseline is 2.5L -PT/OT -Patient had a CT on 08/07 that demonstrated patchy consolidation within the left upper and lower lobes concerning for aspiration PNA and prominent mediastinal lymph nodes Qualifiers: Qualified Codes: J69.0 - Pneumonitis due to inhalation of food and vomit (5) Sepsis Status: Resolved Assessment & Plan: Sepsis qualifiers: -Leukocytosis of 15.8 and fever of 38.4 upon admission -Fever has since resolved, continue to monitor -Leukocytosis is improving, 14.0 on 08/12 (17.6 on 08/11) Resolution Date/Time: 07/15/22 @ 12:28 (6) Hypokalemia Status: Chronic Assessment & Plan: K of 3.2 on 08/12 K supplementation with KCl 40meq GT AM BMP QUITA RAUSCH MD 08/13/221922: Discharge Summary Discharge Physical Examination Allergies: Coded Allergies: ceftriaxone (Verified Allergy, Severe, DIFFICULTY BREATING, 07/05/19) levofloxacin (Verified Allergy, Severe, C-DIFF, 07/05/19) HPI General Chief Complaint: Respiratory Problems Stated Complaint: SEVERE SEPSIS Supervisory-Addendum Brief Verification & Attestation Participated in pt care: history, MDM, physical Personally performed: exam, history, MDM, supervision of care Care discussed with: Medical Student Procedures: n/a Verification and Attestation of Medical Student E/M Service A medical student performed and documented this service in my presence. I reviewed and verified all information documented by the medical student and made modifications to such information, when appropriate. I personally performed the physical exam and medical decision making. Quita Rausch, Aug 13, 2022,19:23 JOSE BRUNNER Aug 13, 2022 18:45 QUITA RAUSCH MD Aug 13, 2022 19:23
== END 2022-08-13 15:20 | disposition home health service (06) | DRG 871 ==
LOC: EDUNIT# 01:42 → ER 01:44 → ICU 02:52 → 4TH 08-10 12:56
PROVIDERS: ADMIT Internal Medicine; ATTEND Family Medicine
DX: A41.9 Sepsis, unspecified organism (principal); I21.A1 Myocardial infarction type 2; J18.9 Pneumonia, unspecified organism; J69.0 Pneumonitis due to inhalation of food and vomit; J96.21 Acute and chronic respiratory failure with hypoxia; J44.0 Chronic obstructive pulmonary disease with (acute) lower respiratory infection; R65.20 Severe sepsis without septic shock; J43.9 Emphysema, unspecified; F17.210 Nicotine dependence, cigarettes, uncomplicated; Z20.822 Contact with and (suspected) exposure to COVID-19; E11.9 Type 2 diabetes mellitus without complications; F03.90 Unspecified dementia, unspecified severity, without behavioral disturbance, psychotic disturbance, mood disturbance, and anxiety; I69.391 Dysphagia following cerebral infarction; I69.322 Dysarthria following cerebral infarction; I69.320 Aphasia following cerebral infarction; R13.10 Dysphagia, unspecified; I65.23 Occlusion and stenosis of bilateral carotid arteries; I73.9 Peripheral vascular disease, unspecified; E87.6 Hypokalemia; K21.9 Gastro-esophageal reflux disease without esophagitis; M19.91 Primary osteoarthritis, unspecified site; M06.9 Rheumatoid arthritis, unspecified; H54.3 Unqualified visual loss, both eyes; F41.9 Anxiety disorder, unspecified; F32.A Depression, unspecified; Z93.1 Gastrostomy status; Z99.81 Dependence on supplemental oxygen; Z95.820 Peripheral vascular angioplasty status with implants and grafts; Z86.718 Personal history of other venous thrombosis and embolism; Z79.01 Long term (current) use of anticoagulants; Z86.711 Personal history of pulmonary embolism; Z79.82 Long term (current) use of aspirin; Z88.1 Allergy status to other antibiotic agents; Z89.432 Acquired absence of left foot; Z85.828 Personal history of other malignant neoplasm of skin; Z85.819 Personal history of malignant neoplasm of unspecified site of lip, oral cavity, and pharynx; Z82.49 Family history of ischemic heart disease and other diseases of the circulatory system
CPT/HCPCS: 36415; 51702; 71045; 80053; 80202; 81000; 82805; 83605; 83735; 84100; 84484; 85007; 85025; 85027; 85610; 85730; 87040; 87081; 87088; 87636; 93005; 94640; 94760

== ENCOUNTER → 2022-08-15 | Outpatient (CLI) | payer MEDICARE, MEDICAID ==
[~2022-08-15] MED LIST changes: +AMLO-251 GT; +AMOX1TAB12 GT; +ATOR10TA66 GT; +CETI1SOL71 PO; +DULO60CA7 PO; +FAMO20TA5 PEG; +GABA250S2 PO; +HYDR118S10 PO; +LACT1CAP74 PO; +SULF473O9 PO
--- NOTE | 2022-08-15 12:55 | Diagnostic Imaging Report ---
INDICATION: Dysphagia. Procedure was performed in conjunction with speech pathology. Video fluoroscopy was performed during swallowing of barium at multiple consistencies. Total of 69 seconds of fluoroscopic time was utilized. Patient ingested thin barium as well as nectar, puree and solid consistency. There was an episode of aspiration during swallowing of thin barium. [place], puree and solid consistencies were unremarkable apart from an episode of flash penetration during swallowing of nectar consistency. No significant vallecular or piriform sinus residue was seen. IMPRESSION: Single episode of aspiration during swallowing of thin liquid as well as a single episode of flash penetration with nectar consistency. Modified barium swallow was otherwise unremarkable. Dictated by: Dictated on workstation # [id number]
== END ==
LOC: RAD 09:47
PROVIDERS: ATTEND Family Medicine
DX: J69.0 Pneumonitis due to inhalation of food and vomit (principal); R13.10 Dysphagia, unspecified
CPT/HCPCS: 74230

== ENCOUNTER 2022-08-28 13:29 | Outpatient (RCR) | payer MEDICARE, MEDICAID ==
[~2022-08-28 13:29] MED LIST changes: +CETI-421 PO; -CETI1SOL71 PO
[2022-08-28 13:54] LABS: BASOPHILS # (AUTO) 0.1 10^3/uL (0.0-0.1); BASOPHILS % (AUTO) 1 % (0-10); EOSINOPHILS # (AUTO) 0.2 10^3/uL (0.0-0.3); EOSINOPHILS % (AUTO) 2 % (0-10); HEMATOCRIT 32 % (35-52); HEMOGLOBIN 10.5 g/dL (11.5-16.0); LYMPHOCYTES # (AUTO) 5.5 10^3/uL (1.0-4.0); LYMPHOCYTES % (AUTO) 45 % (12-44); MEAN CORPUSCULAR HEMOGLOBIN 30 pg (25-34); MEAN CORPUSCULAR HGB CONC 33 g/dL (32-36); MEAN CORPUSCULAR VOLUME 91 fL (80-99); MEAN PLATELET VOLUME 9.2 fL (9.0-12.2); MONOCYTES # (AUTO) 1.1 10^3/uL (0.0-1.0); MONOCYTES % (AUTO) 9 % (0-12); NEUTROPHILS # (AUTO) 5.2 10^3/uL (1.8-7.8); NEUTROPHILS % (AUTO) 42 % (42-75); PLATELET COUNT 520 10^3/uL (130-400); WHITE BLOOD COUNT 12.2 10^3/uL (4.3-11.0)
[2022-08-28 14:12] LABS: ALBUMIN 3.2 GM/DL (3.2-4.5); BILIRUBIN,TOTAL 0.5 MG/DL (0.1-1.0); CALCIUM 9.5 MG/DL (8.5-10.1); CREATININE SERUM 0.82 MG/DL (0.60-1.30); POTASSIUM 4.4 MMOL/L (3.6-5.0); TOTAL PROTEIN 8.5 GM/DL (6.4-8.2)
== END 2022-09-09 | disposition home or self-care (01) ==
LOC: ONC 13:29
PROVIDERS: ATTEND Internal Medicine Hematology & Oncology
DX: Z45.2 Encounter for adjustment and management of vascular access device (principal); C04.1 Malignant neoplasm of lateral floor of mouth; E11.9 Type 2 diabetes mellitus without complications; E66.9 Obesity, unspecified; J69.0 Pneumonitis due to inhalation of food and vomit; D50.9 Iron deficiency anemia, unspecified; R09.02 Hypoxemia; Z86.79 Personal history of other diseases of the circulatory system; Z86.73 Personal history of transient ischemic attack (TIA), and cerebral infarction without residual deficits; Z89.439 Acquired absence of unspecified foot
CPT/HCPCS: 36591; 80053; 84443; 85025

== ENCOUNTER 2022-12-15 13:10 | Outpatient (RCR) | payer MEDICARE, MEDICAID ==
[~2022-12-15 13:10] MED LIST changes: +GABA250S11 PEG; -GABA250S2 PO; -GABA250S5 PEG; +GABA250S6 PO; -MELA1TAB20 PO; +MELA1TAB72 PO; +SULF473O12 PO; -SULF473O9 PO
[2022-12-15 13:45] LABS: BASOPHILS # (AUTO) 0.1 10^3/uL (0.0-0.1); BASOPHILS % (AUTO) 1 % (0-10); EOSINOPHILS # (AUTO) 0.3 10^3/uL (0.0-0.3); EOSINOPHILS % (AUTO) 3 % (0-10); HEMATOCRIT 38 % (35-52); HEMOGLOBIN 12.4 g/dL (11.5-16.0); LYMPHOCYTES # (AUTO) 3.4 10^3/uL (1.0-4.0); LYMPHOCYTES % (AUTO) 36 % (12-44); MEAN CORPUSCULAR HEMOGLOBIN 30 pg (25-34); MEAN CORPUSCULAR HGB CONC 33 g/dL (32-36); MEAN CORPUSCULAR VOLUME 91 fL (80-99); MEAN PLATELET VOLUME 9.4 fL (9.0-12.2); MONOCYTES # (AUTO) 0.9 10^3/uL (0.0-1.0); MONOCYTES % (AUTO) 10 % (0-12); NEUTROPHILS # (AUTO) 4.5 10^3/uL (1.8-7.8); NEUTROPHILS % (AUTO) 49 % (42-75); PLATELET COUNT 341 10^3/uL (130-400); WHITE BLOOD COUNT 9.3 10^3/uL (4.3-11.0)
[2022-12-15 14:06] LABS: ALBUMIN 3.7 GM/DL (3.2-4.5); BILIRUBIN,TOTAL 0.8 MG/DL (0.1-1.0); CALCIUM 9.3 MG/DL (8.5-10.1); CREATININE SERUM 0.86 MG/DL (0.60-1.30); POTASSIUM 4.1 MMOL/L (3.6-5.0); TOTAL PROTEIN 7.7 GM/DL (6.4-8.2)
== END 2023-01-09 | disposition home or self-care (01) ==
LOC: ONC 13:10
PROVIDERS: ATTEND Internal Medicine Hematology & Oncology
DX: Z45.2 Encounter for adjustment and management of vascular access device (principal); C04.1 Malignant neoplasm of lateral floor of mouth; E11.9 Type 2 diabetes mellitus without complications; E66.9 Obesity, unspecified
CPT/HCPCS: 36415; 36591; 80053; 82728; 83540; 83550; 85025

== ENCOUNTER 2023-03-10 15:09 | Outpatient (RCR) | payer MEDICARE, MEDICAID | END 2023-03-12 | disposition home or self-care (01) | LOC: ONC 15:09 | PROVIDERS: ATTEND Internal Medicine Hematology & Oncology | DX: Z45.2 Encounter for adjustment and management of vascular access device (principal); C04.1 Malignant neoplasm of lateral floor of mouth; C44.40 Unspecified malignant neoplasm of skin of scalp and neck; E11.9 Type 2 diabetes mellitus without complications; E66.9 Obesity, unspecified; J44.9 Chronic obstructive pulmonary disease, unspecified; Z98.890 Other specified postprocedural states; D50.9 Iron deficiency anemia, unspecified | CPT/HCPCS: 96523 ==